=== PATIENT | female | born 1950 | race Caucasian/White ===

== ENCOUNTER 2016-05-29 15:56 | Emergency (ER) | payer MEDICARE, MEDICAID ==
[~2016-05-29] VITALS: Ht 162.6 cm; Wt 53.5 kg
[~2016-05-29 15:56] MED LIST: ACHD5005 PO; ALPR.5T PO; AMIT25TA9 PO; AMLO10TA2 PO; ATOR40TA PO; ATOR40TA70 PO; CHLO10CA6 PO; CHLR10C; CHLR10C PO; CPR500T; CPR500T PO; Chantix; DICY20TA10 PO; DICY20TA57 PO; EST1.25T; HSCO125 PO; HYDR-34 PO; LINA145C PO; LINA290C PO; LISI40TA PO; LORA10TA44 PO; LORA10TA7 PO; LOSA100T16 PO; LOSA100T28 PO; LOSA100T7 PO; LSNP10T PO; METH4TAB PO; METO50TA7 PO; MGCT300B PO; NAPR-243 PO; NORVASC PO; ONDA8TAB13 PO; OXB5T PO; OXYC-12 PO; OXYC-272 PO; OXYC-309 PO; OXYC-471 PO; OXYC1TAB17 PO; PHEN200T27 PO; POLY119P PO; PROP1TAB77; RANI150C11 PO; RANI75TA21 PO; TRAM50TA2 PO; TRM50T PO; ZLP10T PO
[2016-05-29] MEDS ORDERED: RANI150T15 PO (16:29)
[2016-05-29] MEDS ORDERED: LINA290C PO (16:29)
[2016-05-29] MEDS ORDERED: DICY20TA33 PO (16:29)
[2016-05-29] MEDS ORDERED: OXYC-197 PO (16:29)
[2016-05-29] MEDS ORDERED: LORA10CA PO (16:29)
[2016-05-29] MEDS ORDERED: RT-ALBUTEROL/IPRATROPIUM 3 ML (DUONEB) VIAL INH ONE (16:45)
[2016-05-29 17:04] LABS: BASOPHILS % (AUTO) 0 % (0-10); EOSINOPHILS % (AUTO) 0 % (0-10); LYMPHOCYTES # (AUTO) 1.2 X 10^3 (1.0-4.0); LYMPHOCYTES % (AUTO) 19 % (12-44); MEAN CORPUSCULAR HEMOGLOBIN 32 PG (25-34); MEAN CORPUSCULAR HGB CONC 33 G/DL (32-36); MEAN CORPUSCULAR VOLUME 96 FL (80-99); MEAN PLATELET VOLUME 8.4 FL (7.4-10.4); MONOCYTES # (AUTO) 0.5 X 10^3 (0.0-1.0); MONOCYTES % (AUTO) 7 % (0-12); NEUTROPHILS % (AUTO) 74 % (42-75); PLATELET COUNT 421 10^3/uL (130-400); RED BLOOD COUNT 3.94 10^6/uL (4.35-5.85); WHITE BLOOD COUNT 6.7 10^3/uL (4.3-11.0)
[2016-05-29] MEDS ORDERED: CHLO10CA6 PO (17:04)
[2016-05-29 17:23] LABS: ALBUMIN 3.8 G/DL (3.2-4.5); BILIRUBIN,TOTAL 0.2 MG/DL (0.1-1.0); CALCIUM 8.9 MG/DL (8.5-10.1); CREATININE SERUM 1.11 MG/DL (0.60-1.30); POTASSIUM 4.4 MMOL/L (3.6-5.0); TOTAL PROTEIN 7.6 G/DL (6.4-8.2)
--- NOTE | 2016-05-29 17:23 | Diagnostic Imaging Report ---
INDICATION: Shortness of breath. History of COPD. EXAMINATION: Two views of the chest were obtained. COMPARISON: 01/01/2015. FINDINGS: The lungs are well aerated with mild air trapping noted, bilaterally. No infiltrates are present. There are no masses. Heart is not enlarged. No evidence of pulmonary edema. No hilar adenopathy. No pneumothorax or pleural effusion. IMPRESSION: Mild bilateral air trapping which has increased slightly in severity when compared with 01/01/2015. Dictated by: Dictated on workstation # [id number]
[2016-05-29] MEDS ORDERED: AZIT250T5 PO (17:57)
[2016-05-29] MEDS ORDERED: PRD20T PO (17:57)
--- NOTE | 2016-05-29 17:57 | ED Cough/URI ---
General Chief Complaint: Respiratory Problems Stated Complaint: COUGH/DIFF BREATHING/WEAKNESS Nursing Triage Note: to ED 5 by wheelchair with complaints of worsening shortness of breath for the past 4-5 days. Patient reports history of COPD. Recent flu/pneumonia vaccine. Source: patient Exam Limitations: no limitations History of Present Illness Time seen by provider: 17:55 Initial Comments To ER with severe weakness and shortness of breath for the past 4-5 days. History of COPD. Severity/Quality: dry cough Prior Episodes/Possible Cause: no prior episodes Associated Symptoms: denies symptoms Allergies and Home Medications Allergies Coded Allergies: Sulfa (Sulfonamide Antibiotics) (Verified Allergy, Unknown, 05/29/16) acetaminophen (Verified Allergy, Unknown, 05/29/16) adhesive (Verified Allergy, Unknown, 05/29/16) fentanyl adhesive hydrocodone (Verified Allergy, Unknown, 05/29/16) meperidine (Verified Allergy, Unknown, HALLUCINATIONS, 05/29/16) Home Medications Chlordiazepoxide HCl 10 Mg Capsule 10 MG PO TID (Reported) Dicyclomine HCl 20 Mg Tablet 20 MG PO TID (Reported) Linaclotide 290 Mcg Capsule 290 MCG PO DAILY (Reported) Loratadine 10 Mg Capsule 10 MG PO DAILY (Reported) Oxycodone HCl/Acetaminophen 1 Each Tablet 2 EACH PO q4-6 hours PRN PRN PAIN ( Reported) Ranitidine HCl 150 Mg Tablet 150 MG PO DAILY PRN PRN INDIGESTION (Reported) Constitutional: see HPI EENTM: see HPI Respiratory: see HPI cough wheezing Cardiovascular: no symptoms reported Genitourinary: no symptoms reported Musculoskeletal: no symptoms reported Skin: no symptoms reported Psychiatric/Neurological: No Symptoms Reported Past Mrhsuda-Khcbwg-Iyeasp Hx Patient Social History Alcohol Use: Denies Use Recreational Drug Use: No Smoking Status: Current Everyday Smoker Type Used: Cigarettes Recent Foreign Travel: No Contact w/Someone Who Travel: No Recent Infectious Disease Expo: No Recent Hopitalizations: No Physical Abuse Screen: No Sexual Abuse: No Immunizations Up To Date Tetanus Booster (TDap): Less than 5yrs Date of Pneumonia Vaccine: May 23, 2016 Date of Influenza Vaccine: May 23, 2016 Surgeries HX Surgeries: Yes (ADHESIOLYSIS X3, LEFT FOOT X2, C/S X2, HYSTERECTOMY) Surgeries: Section, Hysterectomy, Orthopedic Respiratory Hx Respiratory Disorders: Yes Respiratory Disorders: COPD Cardiovascular Hx Cardiac Disorders: Yes Cardiac Disorders: Hypertension Neurological Hx Neurological Disorders: No 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 System Hx 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 Disorders: No Sexually Transmitted Disease: No HIV/AIDS: No Genitourinary Hx Genitourinary Disorders: Yes (HASNT HAD UTI IN 8 MONTHS) Genitourinary Disorders: Kidney Stones, UTI-Chronic Gastrointestinal Hx Gastrointestinal Disorders: Yes Gastrointestinal Disorders: Gastroesophageal Reflux, Irritable Bowel Musculoskeletal Hx Musculoskeletal Disorders: Yes ("KNEE AND BACK PROBLEMS") Musculoskeletal Disorders: Osteoporosis, Arthritis Endocrine Hx Endocrine Disorders: No HEENT HX ENT Disorders: Yes (DENTURES, READING GLASSES) Loss of Vision: Bilateral Cancer Hx Cancer: No Psychosocial Hx Psychiatric Problems: No (Pt states she had Bulemia years ago and lowest weight was 94 lbs ) Behavioral Health Disorders: PTSD Integumentary HX Skin/Integumentary Disorder: No Blood Transfusions Hx Blood Disorders: Yes (HX OF ANEMIA) Adverse Reaction to a Blood Tr: No (HAS FLUSHING BUT NO REACTION) Family Medical History Family Medial History: Abdominal aortic aneurysm Alzheimer's disease 19 MOTHER Cardiovascular disease 19 FATHER ( AT 46 FROM HEART ATTACK) G8 SISTER Hypercholesterolemia 19 FATHER Hypertension 19 FATHER 19 MOTHER Myocardial infarction 19 FATHER Thyroid disease 19 MOTHER G8 SISTER Physical Exam Vital Signs Vital Sign - Last 12Hours 05/29/16 16:10 Temp 98.3 Pulse 110 Resp 24 B/P 164/90 Pulse Ox 97 O2 Delivery Room Air Capillary Refill : Less Than 3 Seconds General Appearance: WD/WN cachetic no apparent distress Eyes: Bilateral Eye EOMI, Bilateral Eye Normal Inspection, Bilateral Eye PERRL HEENT: PERRL/EOMI normal ENT inspection Respiratory: no respiratory distress decreased breath sounds wheezing Gastrointestinal: normal bowel sounds non tender soft 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: alert normal mood/affect oriented x 3 Skin: normal color warm/dry Progress/Results/Core Measures Results/Orders Lab Results Laboratory Tests Test 05/29/16 16:50 Range/Units Alanine Aminotransferase (ALT/SGPT) 8 0-55 U/L Albumin 3.8 3.2-4.5 G/DL Alkaline Phosphatase 152 H 40-136 U/L Anion Gap 12 5-14 MMOL/L Aspartate Amino Transf (AST/SGOT) 13 5-34 U/L BUN/Creatinine Ratio 12 Basophils # (Auto) 0.0 0.0-0.1 10^3/uL Basophils (%) (Auto) 0 0-10 % Blood Urea Nitrogen 13 7-18 MG/DL Calcium Level 8.9 8.5-10.1 MG/DL Carbon Dioxide Level 16 L 21-32 MMOL/L Chloride Level 99 98-107 MMOL/L Creatinine 1.11 0.60-1.30 MG/DL Eosinophils # (Auto) 0.0 0.0-0.3 10^3/uL Eosinophils (%) (Auto) 0 0-10 % Estimat Glomerular Filtration Rate 49 Glucose Level 97 70-105 MG/DL Hematocrit 38 35-52 % Hemoglobin 12.6 11.5-16.0 G/DL Lactic Acid Level 1.5 0.5-2.0 MMOL/L Lymphocytes # (Auto) 1.2 1.0-4.0 X 10^3 Lymphocytes (%) (Auto) 19 12-44 % Mean Corpuscular Hemoglobin 32 25-34 PG Mean Corpuscular Hemoglobin Concent 33 32-36 G/DL Mean Corpuscular Volume 96 80-99 FL Mean Platelet Volume 8.4 7.4-10.4 FL Monocytes # (Auto) 0.5 0.0-1.0 X 10^3 Monocytes (%) (Auto) 7 0-12 % Neutrophils # (Auto) 5.0 1.8-7.8 X 10^3 Neutrophils (%) (Auto) 74 42-75 % Platelet Count 421 H 130-400 10^3/uL Potassium Level 4.4 3.6-5.0 MMOL/L Red Blood Count 3.94 L 4.35-5.85 10^6/uL Red Cell Distribution Width 15.0 H 10.0-14.5 % Sodium Level 127 L 135-145 MMOL/L Total Bilirubin 0.2 0.1-1.0 MG/DL Total Protein 7.6 6.4-8.2 G/DL White Blood Count 6.7 4.3-11.0 10^3/uL My Orders Orders-CYDNEY ANDERSON [employer] INSPECTOR Cbc With Automated Diff (05/29/16 16:40) Comprehensive Metabolic Panel (05/29/16 16:40) Ua Culture If Indicated (05/29/16 16:40) Chest Pa/Lat (2 View) (05/29/16 16:40) Saline Lock/Iv-Start (05/29/16 16:40) Blood Culture (05/29/16 16:40) Lactic Acid Analyzer (05/29/16 16:40) Albuterol/Ipra Inhalation Soln (Duoneb I (05/29/16 16:45) Svn Sm Volume Nebulizer Rt-Rfs (05/29/16 16:40) Medications Given in ED Current Medications Medications Dose Ordered Sig/Lisa Route Start Time Stop Time Status Last Admin Dose Admin Albuterol/ Ipratropium 3 ml ONCE ONCE INH 05/29/16 16:45 05/29/16 16:46 DC 05/29/16 16:56 3 ML Vital Signs/I&O Vital Sign - Last 12Hours 05/29/16 05/29/16 05/29/16 16:10 16:50 16:56 Temp 98.3 98.3 Pulse 110 110 Resp 24 24 B/P 164/90 164/90 Pulse Ox 97 97 97 O2 Delivery Room Air Room Air Blood Pressure Mean: 114 Departure Impression Impression: Primary Impression: COPD exacerbation Disposition: 01 HOME, SELF-CARE Condition: Stable Departure-Patient Inst. Decision time for Depature: 17:56 Referrals: [facility] (PCP/Family) Primary Care Physician Patient Instructions: COPD Including Emphysema (DC) Add. Discharge Instructions: 1. Medication as directed 2. Follow-up with your doctor next week 3. Return to ER for any concerns All discharge instructions reviewed with patient and/or family. Voiced understanding. Scripts Azithromycin 250 Mg [id number] Mg PO UD #6 TAB TAKE 2 TABLETS ON DAY ONE THEN TAKE 1 TABLET DAILY FOR FOUR MORE DAYS Prov:CYDNEY ANDERSON [employer] INSPECTOR 05/29/16 Prednisone 20 Mg Tab40 Mg PO DAILY #8 TAB Prov:CYDNEY ANDERSON [employer] INSPECTOR 05/29/16 CYDNEY ANDERSON [employer] INSPECTOR May 29, 2016 17:57
[2016-05-29] MEDS ORDERED: predniSONE 20 MG TAB PO ONE (18:00)
[2016-05-29] MEDS ORDERED: RX-ALBUTEROL NEB 2.5 MG/3 ML PACK #5 IH STA (18:06)
[2016-05-29 18:15] VITALS: BP 142/88
[2016-06-03] MEDS ORDERED: NITR100C10 PO (11:46)
[2016-06-03] MEDS ORDERED: PRD10T PO (11:46)
== END 2016-05-29 18:15 | disposition home or self-care (01) ==
LOC: EDUNIT# 15:56 → ER 15:59
DX: J44.1 Chronic obstructive pulmonary disease with (acute) exacerbation (principal); I10 Essential (primary) hypertension; F17.210 Nicotine dependence, cigarettes, uncomplicated
CPT/HCPCS: 36415; 71020; 80053; 83605; 85025; 87040; 94640

== ENCOUNTER 2016-06-02 01:23 | Observation (INO) | payer MEDICARE, MEDICAID ==
[~2016-06-02] VITALS: Ht 162.6 cm; Wt 52.8 kg
[~2016-06-02 01:23] MED LIST changes: +AZIT250T5 PO; +DICY20TA33 PO; +LORA10CA PO; +OXYC-197 PO; +PRD20T PO; +RANI150T15 PO
[2016-06-02 12:30] VITALS: BP 111/68
[2016-06-02] MEDS ORDERED: DOCUSATE SODIUM 100 MG (COLACE) CAP PO PRN (13:15)
[2016-06-02] MEDS ORDERED: PATIENT MAY USE OWN MEDS, ALL PO SCH (13:15)
[2016-06-02] MEDS ORDERED: CATHETER FLUSH 10 ML SYR IV PRN (13:30)
[2016-06-02] MEDS ORDERED: PRD20T PO (13:42)
[2016-06-02] MEDS ORDERED: AZIT250T5 PO (13:42)
[2016-06-02 13:44] LABS: BASOPHILS % (AUTO) 0 % (0-10); EOSINOPHILS % (AUTO) 0 % (0-10); LYMPHOCYTES # (AUTO) 1.4 X 10^3 (1.0-4.0); LYMPHOCYTES % (AUTO) 10 % (12-44); MEAN CORPUSCULAR HEMOGLOBIN 32 PG (25-34); MEAN CORPUSCULAR HGB CONC 33 G/DL (32-36); MEAN CORPUSCULAR VOLUME 95 FL (80-99); MEAN PLATELET VOLUME 8.2 FL (7.4-10.4); MONOCYTES # (AUTO) 0.4 X 10^3 (0.0-1.0); MONOCYTES % (AUTO) 3 % (0-12); NEUTROPHILS # (AUTO) 11.6 X 10^3 (1.8-7.8); NEUTROPHILS % (AUTO) 87 % (42-75); PLATELET COUNT 470 10^3/uL (130-400); RED BLOOD COUNT 4.39 10^6/uL (4.35-5.85); RED CELL DISTRIBUTION WIDTH 14.9 % (10.0-14.5); WHITE BLOOD COUNT 13.3 10^3/uL (4.3-11.0)
[2016-06-02] MEDS ORDERED: TRAZ-28 PO (13:48)
[2016-06-02] MEDS ORDERED: OXYC-465 PO (13:48)
[2016-06-02] MEDS ORDERED: OXYC-202 PO (13:48)
[2016-06-02] MEDS ORDERED: CHLO10CA6 PO (13:48)
[2016-06-02] MEDS ORDERED: MELA1TAB10 PO (13:49)
[2016-06-02 14:00] LABS: ALBUMIN 3.7 G/DL (3.2-4.5); BILIRUBIN,TOTAL 0.3 MG/DL (0.1-1.0); CALCIUM 9.6 MG/DL (8.5-10.1); CREATININE SERUM 1.18 MG/DL (0.60-1.30); POTASSIUM 4.7 MMOL/L (3.6-5.0); TOTAL PROTEIN 7.5 G/DL (6.4-8.2)
[2016-06-02] MEDS ORDERED: METHYLPREDNISOLONE 1000 MG IVP SCH (14:00)
[2016-06-02 14:04] LABS: ANISOCYTOSIS SLIGHT; BAND NEUTROPHILS 0 %; BASOPHILS % (MANUAL) 0 %; EOSINOPHILS % (MANUAL) 0 %; LYMPHOCYTES % (MANUAL) 8 %; NEUTROPHILS % (MANUAL) 90 %
[2016-06-02] MEDS: CATHETER FLUSH 10 ML SYR IV SCH ×2 (14:46→21:10)
[2016-06-02] MEDS: methylPREDNISolone 40 MG/ML (Solu-MEDROL) VIAL IV SCH ×2 (14:46→21:09)
[2016-06-02] MEDS ORDERED: RT-ALBUTEROL/IPRATROPIUM 3 ML (DUONEB) VIAL INH PRN (15:00)
[2016-06-02] MEDS ORDERED: NON-FORMULARY MEDICATION 1 EA EA (Linaclotide (Linzess) 290 MCG) PO PRN (15:30)
[2016-06-02] MEDS ORDERED: FAMOTIDINE 20 MG (PEPCID) TABLET PO PRN (15:30)
[2016-06-02] MEDS ORDERED: MELATONIN 3 MG TABLET PO PRN (15:30)
[2016-06-02] MEDS ORDERED: raNItidine (ZANTAC) 150 MG TAB NON-FORMULARY PO PRN (15:30)
[2016-06-02] MEDS ORDERED: NON-FORMULARY MEDICATION 1 EA EA (Melatonin/Pyridoxine (Melatonin 3 mg Tablet) 3 MG) PO PRN (15:30)
[2016-06-02] MEDS ORDERED: oxyCODONE/APAP 10/325MG (PERCOCET 10) TABLET PO ONE (16:04)
[2016-06-02] MEDS: oxyCODONE/APAP 10/325MG (PERCOCET 10) TABLET PO SCH (16:12)
[2016-06-02] MEDS: NS IV 1000 ML 1,000 ML IV SCH ×2 (16:13→23:30)
[2016-06-02 16:16] VITALS: BP 120/78
--- NOTE | 2016-06-02 16:29 | Diagnostic Imaging Report ---
EXAMINATION: PA and lateral views of the chest. INDICATION: Shortness of breath. FINDINGS: The lungs are clear. The heart size is normal. There is no effusion or pneumothorax. The mediastinum and bebeto are unremarkable. IMPRESSION: Unremarkable exam. Dictated by: Dictated on workstation # [id number]
[2016-06-02 17:40] LABS: BILIRUBIN,URINE NEGATIVE (NEGATIVE); KETONES,URINE NEGATIVE (NEGATIVE); LEUKOCYTE ESTERASE ,URINE 2+ (NEGATIVE); NITRITE,URINE NEGATIVE (NEGATIVE); PH,URINE 6.5 (5-9); PROTEIN,URINE 1+ (NEGATIVE); UROBILINOGEN,URINE NORMAL (NORMAL)
[2016-06-02 17:42] LABS: WBC,URINE 50-100 /HPF
[2016-06-02] MEDS: RT-ALBUTEROL/IPRATROPIUM 3 ML (DUONEB) VIAL INH SCH (18:46)
[2016-06-02 20:00] VITALS: BP 107/61
[2016-06-02] MEDS ORDERED: chlordiazePOXIDE 10 MG (LIBRIUM) NON-FORMULARY PO SCH (21:00)
[2016-06-02] MEDS ORDERED: traZODone 50 MG (DESYREL) TAB PO SCH (21:00)
[2016-06-02] MEDS ORDERED: oxyCODONE/APAP 10/325MG (PERCOCET 10) TABLET PO SCH (21:00)
[2016-06-03] VITALS: BP 104/54
[2016-06-03] MEDS: NS IV 1000 ML 1,000 ML IV SCH ×2 (01:42→10:20)
[2016-06-03 04:00] VITALS: BP 134/68
[2016-06-03] MEDS: methylPREDNISolone 40 MG/ML (Solu-MEDROL) VIAL IV SCH (05:59)
[2016-06-03] MEDS: CATHETER FLUSH 10 ML SYR IV SCH (05:59)
[2016-06-03] MEDS: RT-ALBUTEROL/IPRATROPIUM 3 ML (DUONEB) VIAL INH SCH ×2 (07:38→10:46)
[2016-06-03 07:44] VITALS: BP 138/75
[2016-06-03] MEDS ORDERED: chlordiazePOXIDE 10 MG (LIBRIUM) NON-FORMULARY PO SCH (08:00)
[2016-06-03] MEDS: oxyCODONE/APAP 10/325MG (PERCOCET 10) TABLET PO SCH (08:18)
[2016-06-03] MEDS ORDERED: LORATADINE (CLARITIN) 10 MG TAB PO SCH (09:00)
[2016-06-03] MEDS ORDERED: NON-FORMULARY MEDICATION 1 EA EA (Loratadine (Claritin) 10 MG) PO SCH (09:00)
[2016-06-03] MEDS ORDERED: AZITHROMYCIN 250 MG TAB (ZITHROMAX) PO SCH (09:00)
[2016-06-03 10:10] LABS: BASOPHILS % (AUTO) 0 % (0-10); EOSINOPHILS % (AUTO) 0 % (0-10); LYMPHOCYTES # (AUTO) 0.8 X 10^3 (1.0-4.0); LYMPHOCYTES % (AUTO) 10 % (12-44); MEAN CORPUSCULAR HEMOGLOBIN 32 PG (25-34); MEAN CORPUSCULAR HGB CONC 33 G/DL (32-36); MEAN CORPUSCULAR VOLUME 96 FL (80-99); MEAN PLATELET VOLUME 8.4 FL (7.4-10.4); MONOCYTES # (AUTO) 0.1 X 10^3 (0.0-1.0); MONOCYTES % (AUTO) 2 % (0-12); NEUTROPHILS # (AUTO) 7.6 X 10^3 (1.8-7.8); NEUTROPHILS % (AUTO) 89 % (42-75); PLATELET COUNT 398 10^3/uL (130-400); RED BLOOD COUNT 3.43 10^6/uL (4.35-5.85); RED CELL DISTRIBUTION WIDTH 14.5 % (10.0-14.5); WHITE BLOOD COUNT 8.5 10^3/uL (4.3-11.0)
[2016-06-03 10:28] LABS: CALCIUM 8.2 MG/DL (8.5-10.1); CREATININE SERUM 0.98 MG/DL (0.60-1.30); POTASSIUM 4.3 MMOL/L (3.6-5.0)
--- NOTE | 2016-06-03 10:31 | Diagnostic Imaging Report ---
PROCEDURE: CT chest without contrast. TECHNIQUE: Multiple contiguous axial images were obtained through the chest without the use of intravenous contrast. INDICATION: Shortness of breath. Weight loss. FINDINGS: There are upper lobe predominant emphysematous changes seen. There is a mild area of consolidation with the appearance in favor of atelectasis in the dependent area of the left lower lobe and the lung base. There is no pleural or pericardial effusion. The heart size is normal. Coronal artery calcifications are seen. The thoracic aorta is normal in caliber. No mediastinal mass and no lymphadenopathy of significance in the mediastinum or bebeto noted. Sections in the upper abdomen appear grossly unremarkable. The osseous structures appear grossly unremarkable. IMPRESSION: 1. Mild subsegmental consolidation in the left lung base dependent area is favored to be atelectasis rather than mild pneumonitis. Correlate clinically. 2. Emphysema. Dictated by: Dictated on workstation # [id number]
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
[2016-06-03] MEDS ORDERED: PRD10T PO (11:46)
[2016-06-03] MEDS ORDERED: NITR100C10 PO (11:46)
--- NOTE | 2016-06-03 11:52 | Discharge Instructions ---
Discharge [facility] Discharge Medications New, Converted or Re-Newed RX: Transmitted to Pharmacy New Medications: Prednisone (Prednisone) 10 Mg Tab 0 PO UD Take 6 tabs (60mg) daily, decrease by 1 tab (10mg) daily. #21 Ref 0 TAB Nitrofurantoin Monohyd/M-Cryst (Nitrofurantoin Hendry-Mcr 100 mg) 100 Mg Capsule 100 MG PO BID #14 Ref 0 CAP Continued Medications: Chlordiazepoxide HCl (Chlordiazepoxide HCl) 10 Mg Capsule 10 MG PO 0800,1200 CAP Chlordiazepoxide HCl (Chlordiazepoxide HCl) 10 Mg Capsule 20 MG PO HS TAKES 2 (10MG) CAPSULES CAP Linaclotide (Linzess) 290 Mcg Capsule 290 MCG PO DAILY PRN CONSTIPATION CAP Loratadine (Claritin) 10 Mg Capsule 10 MG PO DAILY CAP Melatonin/Pyridoxine (Melatonin 3 mg Tablet) 1 Each Tablet 3 MG PO HS PRN SLEEP TAB Oxycodone HCl/Acetaminophen (Oxycodone-Acetaminophen 10-325) 1 Each Tablet 1 TAB PO 0800,1400 TAB Oxycodone HCl/Acetaminophen (Percocet 10-325 mg Tablet) 1 Each Tablet 2 TAB PO HS TAB Ranitidine HCl (Zantac) 150 Mg Tablet 150-300 MG PO BID PRN INDIGESTION TAB Trazodone HCl (Trazodone HCl) 50 Mg Tablet 100 MG PO HS TAKES 2 (50MG) TABLETS TAB Discontinued Medications: Azithromycin (Azithromycin) 250 Mg Tablet 250 MG PO UD FILLED 5 DAY SUPPLY 05-30-16 TAKE 2 TABLETS ON DAY ONE THEN TAKE 1 TABLET DAILY FOR FOUR MORE DAYS #6 TAB Prednisone (Prednisone) 20 Mg Tab 40 MG PO DAILY 4 DAY SUPPLY FILLED 05-30-16 TAKES 2 (20MG) TABLETS Days 4 TAB Patient Instructions Goal/Follow Up Appt: Follow up with Jill Laureano on 06/09/16 at 11 am. Patient Instructions: 1. Stop taking more than 2 tabs of ranitidine per day. 2. Take macrobid for urinary tract infection. 3. Take prednisone for breathing problems. 4. Talk to Jill Laureano about getting lung function testing done to check for COPD/emphysema. 5. Talk to Jill Laureano about getting a referral to have an EGD done due to your weight loss and severe acid reflux. Return to [facility] For: Fever, worsening shortness of breath, inability to keep down food Activity & Diet Discharge Diet: Regular Diet Activity as Tolerated: Yes RAISSA FUENTES MD Jun 03, 2016 11:52 am
[2016-06-03 12:00] VITALS: BP 130/69
[2016-06-03] MEDS ORDERED: NITROFURANTOIN 100 MG (MACROBID) CAPSULE PO SCH (21:00)
== END 2016-06-03 11:46 | disposition home or self-care (01) ==
LOC: PREINTOOBSV → ICU 01:23 → UNDOADMIN 12:30 → UNDODISIN 06-03 12:15
PROVIDERS: ADMIT Family Medicine; ATTEND Family Medicine
DX: R09.02 Hypoxemia (principal); E87.1 Hypo-osmolality and hyponatremia; D72.829 Elevated white blood cell count, unspecified; R63.4 Abnormal weight loss; N39.0 Urinary tract infection, site not specified; I49.9 Cardiac arrhythmia, unspecified; F17.210 Nicotine dependence, cigarettes, uncomplicated; F43.10 Post-traumatic stress disorder, unspecified; G43.909 Migraine, unspecified, not intractable, without status migrainosus; M54.5 Low back pain; I10 Essential (primary) hypertension; K29.70 Gastritis, unspecified, without bleeding; M19.90 Unspecified osteoarthritis, unspecified site; K58.9 Irritable bowel syndrome, unspecified; Z96.651 Presence of right artificial knee joint
CPT/HCPCS: 36415; 71020; 71250; 80048; 80053; 81000; 82436; 83935; 84300; 85007; 85025; 85027; 87077; 87088; 87186; 93005; 94640; 99211; G0378

== ENCOUNTER → 2016-06-23 | Outpatient (CLI) | payer MEDICARE, MEDICAID ==
[~2016-06-23] MED LIST changes: +CEFD300C3 PO; +CIPR-225 PO; +HYOS0.1281 PO; +LACT1CAP8 PO; +LEVO750T9 PO; +MELA1TAB10 PO; +METH500T PO; +NITR100C10 PO; +ONDA8TAB9 PO; +OXYC-202 PO; +OXYC-465 PO; +PHEN-639 PO; +PHEN-640 PO; +PRD10T PO; +TRAZ-28 PO
== END ==
LOC: PREOP 05:59
PROVIDERS: ATTEND Surgery
DX: Z01.818 Encounter for other preprocedural examination (principal); K21.9 Gastro-esophageal reflux disease without esophagitis; R63.4 Abnormal weight loss

== ENCOUNTER 2016-06-25 13:22 | Emergency (ER) | payer MEDICARE, MEDICAID ==
[~2016-06-25] VITALS: Ht 162.6 cm; Wt 50.8 kg
[~2016-06-25 13:22] MED LIST changes: -CEFD300C3 PO; -CIPR-225 PO; -HYOS0.1281 PO; -LACT1CAP8 PO; -LEVO750T9 PO; -METH500T PO; -ONDA8TAB9 PO; -PHEN-639 PO; -PHEN-640 PO
[2016-06-25] MEDS ORDERED: PHENAZOPYRIDINE 100 MG (PYRIDIUM) TABLET PO STA (13:55)
--- NOTE | 2016-06-25 13:59 | ED GU-Female ---
General Chief Complaint: -Female Stated Complaint: UTI SYMPTOMS History of Present Illness Time seen by provider: 13:45 Initial Comments Initial evaluation for urinary pain frequency and burning, symptoms began . Denies back pain. Was treated approximately 4-6 weeks ago with Macrobid for the UTI. She reports recurrent UTIs approximately 2-3 per year. Timing/Duration: getting worse Severity/Quality: moderate Location: suprapubic Radiation: none Activities at Onset: none Prior Genitourinary Problems: similar symptoms Sexual [place] History: single partner Modifying Factors: Improves With Resting, Improves With Urinating Associated Symptoms: denies symptoms Allergies and Home Medications Allergies Coded Allergies: Sulfa (Sulfonamide Antibiotics) (Verified Allergy, Unknown, 05/29/16) acetaminophen (Verified Allergy, Unknown, 05/29/16) adhesive (Verified Allergy, Unknown, 05/29/16) fentanyl adhesive hydrocodone (Verified Allergy, Unknown, 05/29/16) meperidine (Verified Allergy, Unknown, HALLUCINATIONS, 05/29/16) Home Medications Chlordiazepoxide HCl 10 Mg Capsule 10 MG PO 0800,1200 (Reported) Chlordiazepoxide HCl 10 Mg Capsule 20 MG PO HS (Reported) TAKES 2 (10MG) CAPSULES Ciprofloxacin HCl 500 Mg Tablet #10 500 MG PO BID Prescribed by: ANDREW KANG on 06/25/16 1429 Linaclotide 290 Mcg Capsule 290 MCG PO DAILY PRN PRN CONSTIPATION (Reported) Loratadine 10 Mg Capsule 10 MG PO DAILY (Reported) Melatonin/Pyridoxine 1 Each Tablet 3 MG PO HS PRN PRN SLEEP (Reported) Nitrofurantoin Monohyd/M-Cryst 100 Mg Capsule #14 100 MG PO BID Prescribed by: RAISSA KING on 06/03/16 1146 Oxycodone HCl/Acetaminophen 1 Each Tablet 1 TAB PO 0800,1400 (Reported) Oxycodone HCl/Acetaminophen 1 Each Tablet 2 TAB PO HS (Reported) Phenazopyridine HCl 100 Mg Tablet #6 100 MG PO Q8H Prescribed by: ANDREW KANG on 06/25/16 1430 Prednisone 10 Mg Tab #21 0 PO UD Take 6 tabs (60mg) daily, decrease by 1 tab (10mg) daily. Prescribed by: RAISSA KING on 06/03/16 1146 Ranitidine HCl 150 Mg Tablet 150-300 MG PO BID PRN PRN INDIGESTION (Reported) Trazodone HCl 50 Mg Tablet 100 MG PO HS (Reported) TAKES 2 (50MG) TABLETS Constitutional: no symptoms reported see HPI EENTM: no symptoms reported see HPI Respiratory: no symptoms reported see HPI Cardiovascular: no symptoms reported see HPI Gastrointestinal: no symptoms reported see HPI Genitourinary: see HPI burningdenies discharge, dysuria frequencydenies flank pain, denies hematuria, denies incontinence, pain urgency Musculoskeletal: no symptoms reported see HPI Skin: no symptoms reported see HPI Psychiatric/Neurological: No Symptoms Reported See HPI Endocrine: No Symptoms Reported See HPI Hematologic/Lymphatic: No Symptoms Reported See HPI All Other Systemes Reviewed Negative Unless Noted: Yes Past Lthlqso-Tsaxqe-Tfhtqq Hx Patient Social History Type Used: Cigarettes Recent Foreign Travel: No Contact w/Someone Who Travel: No Recent Hopitalizations: No Immunizations Up To Date Tetanus Booster (TDap): Less than 5yrs Date of Pneumonia Vaccine: May 23, 2016 Date of Influenza Vaccine: May 23, 2016 Seasonal Allergies Seasonal Allergies: No Surgeries HX Surgeries: Yes (ADHESIOLYSIS X3, LEFT FOOT X2, C/S X2, HYSTERECTOMY) Surgeries: Section, Hysterectomy, Orthopedic Respiratory Hx Respiratory Disorders: Yes Respiratory Disorders: COPD Cardiovascular Hx Cardiac Disorders: Yes Cardiac Disorders: Hypertension Neurological Hx Neurological Disorders: No 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 System Hx 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 Disorders: No Sexually Transmitted Disease: No HIV/AIDS: No Genitourinary Hx Genitourinary Disorders: Yes (HASNT HAD UTI IN 8 MONTHS) Genitourinary Disorders: Kidney Stones, UTI-Chronic Gastrointestinal Hx Gastrointestinal Disorders: Yes Gastrointestinal Disorders: Gastroesophageal Reflux, Irritable Bowel Musculoskeletal Hx Musculoskeletal Disorders: Yes ("KNEE AND BACK PROBLEMS") Musculoskeletal Disorders: Osteoporosis, Arthritis Endocrine Hx Endocrine Disorders: No HEENT HX ENT Disorders: Yes (DENTURES, READING GLASSES) Loss of Vision: Bilateral Cancer Hx Cancer: No Psychosocial Hx Psychiatric Problems: No (Pt states she had Bulemia years ago and lowest weight was 94 lbs ) Behavioral Health Disorders: PTSD Integumentary HX Skin/Integumentary Disorder: No Blood Transfusions Hx Blood Disorders: Yes (HX OF ANEMIA) Adverse Reaction to a Blood Tr: No (HAS FLUSHING BUT NO REACTION) Reviewed Nursing Assessment Reviewed/Agree w Nursing PMH: Yes Family Medical History Significant Family History: Heart Disease Family Medial History: Abdominal aortic aneurysm Alzheimer's disease 19 MOTHER Cardiovascular disease 19 FATHER ( AT 46 FROM HEART ATTACK) G8 SISTER Hypercholesterolemia 19 FATHER Hypertension 19 FATHER 19 MOTHER Myocardial infarction 19 FATHER Thyroid disease 19 MOTHER G8 SISTER Physical Exam Vital Signs Vital Sign - Last 12Hours 06/25/16 13:40 Temp 98.2 Pulse 96 Resp 18 B/P 164/92 Pulse Ox 96 O2 Delivery Room Air Capillary Refill : General Appearance: WD/WN no apparent distress HEENT: PERRL/EOMI normal ENT inspection Neck: non-tender full range of motion supple normal inspection Cardiovascular: normal peripheral pulses regular rate, rhythm no edema no murmur Respiratory: chest non-tender lungs clear no respiratory distress Gastrointestinal: normal bowel sounds non tender soft no pulsatile mass Back: normal inspection no CVA tenderness no vertebral tenderness Extremities: normal range of motion non-tender normal inspection 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: no motor/sensory deficits alert normal mood/affect oriented x 3 Skin: normal color warm/dry Lymphatic: no adenopathy Progress/Results/Core Measures Results/Orders Lab Results My Orders Vital Signs/I&O Progress Note : Time: 13:45 Progress Note Initial evaluation completed, UA obtained. Pyridium 100 mg po. Reviewed UA results with the patient recommended starting treatment with Cipro. Discharge planning discussed with patient she verbalized understanding and compliance. Departure Impression Impression: Primary Impression: UTI (urinary tract infection) Qualified Code: N30.01 - Acute cystitis with hematuria Disposition: HOME, SELF-CARE Condition: Stable Departure-Patient Inst. Decision time for Depature: 14:00 Referrals: RAISSA KING MD (PCP/Family) Primary Care Physician Patient Instructions: Urinary Tract Infection, Adult (DC) Add. Discharge Instructions: All discharge instructions reviewed with patient and/or family. Voiced understanding. Take all of antibiotic, follow up with Dr. King 3-4 days after finishing antibiotic for UA. Increase fluid intake. Deep bladder frequently. Eat blueberries or cranberries daily. Return to emergency department for increase or change in symptoms, fever, acute low back pain, or any other concerns. Scripts Phenazopyridine HCl (Pyridium)100 Mg [id number] Mg PO Q8H Pain #6 TAB Ref 0 Prov:ANDREW KANG 06/25/16 Ciprofloxacin HCl (Cipro)500 Mg [id number] Mg PO BID #10 TAB Ref 0 Prov:ANDREW KANG 06/25/16 Copy Copies To 1: RAISSA KING MD, AMY ARNP Jun 25, 2016 13:59 Urine Urobilinogen 8 H NORMAL MG/DL Urine WBC >100 H /HPF Urine pH 6.5 5-9 My Orders Orders-ANDREW KANG Ua Culture If Indicated (06/25/16 13:45) Phenazopyridine Tablet (Pyridium Tablet) (06/25/16 13:55) Urine Culture (06/25/16 13:40) Ciprofloxacin Tablet (Cipro Tablet) (06/25/16 14:30) Vital Signs/I&O Vital Sign - Last 12Hours 06/25/16 06/25/16 13:40 14:34 Temp 98.2 98.2 Pulse 96 90 Resp 18 18 B/P 164/92 Pulse Ox 96 98 O2 Delivery Room Air Progress Note : Time: 13:45 Progress Note Initial evaluation completed, UA obtained. Pyridium 100 mg po. Reviewed UA results with the patient recommended starting treatment with Cipro. Discharge planning discussed with patient she verbalized understanding and compliance. Departure Impression Impression: Primary Impression: UTI (urinary tract infection) Qualified Code: N30.01 - Acute cystitis with hematuria Disposition: HOME, SELF-CARE Condition: Stable Departure-Patient Inst. Decision time for Depature: 14:00 Referrals: RAISSA KING MD (PCP/Family) Primary Care Physician Patient Instructions: Urinary Tract Infection, Adult (DC) Add. Discharge Instructions: All discharge instructions reviewed with patient and/or family. Voiced understanding. Take all of antibiotic, follow up with Dr. King 3-4 days after finishing antibiotic for UA. Increase fluid intake. Deep bladder frequently. Eat blueberries or cranberries daily. Return to emergency department for increase or change in symptoms, fever, acute low back pain, or any other concerns. Scripts Phenazopyridine HCl (Pyridium)100 Mg [id number] Mg PO Q8H Pain #6 TAB Ref 0 Prov:ANDREW KANG 06/25/16 Ciprofloxacin HCl (Cipro)500 Mg [id number] Mg PO BID #10 TAB Ref 0 Prov:ANDREW KANG 06/25/16 Copy Copies To 1: RAISAS KING MD, AMY ARNP Jun 25, 2016 13:59
[2016-06-25 14:03] LABS: KETONES,URINE NEGATIVE (NEGATIVE); LEUKOCYTE ESTERASE ,URINE 2+ (NEGATIVE); NITRITE,URINE POSITIVE (NEGATIVE); PH,URINE 6.5 (5-9); PROTEIN,URINE 2+ (NEGATIVE); UROBILINOGEN,URINE 8 MG/DL (NORMAL)
[2016-06-25 14:19] LABS: BILIRUBIN,URINE 3+ (NEGATIVE); SQUAMOUS EPITHELIAL CELL,UR RARE /HPF; WBC,URINE >100 /HPF
[2016-06-25] MEDS ORDERED: CIPR-225 PO (14:29)
[2016-06-25] MEDS ORDERED: CIPROFLOXACIN 500 MG (CIPRO) TABLET PO SCH (14:30)
[2016-06-25] MEDS ORDERED: PHEN-639 PO (14:30)
[2016-06-25 14:34] VITALS: BP 152/90
== END 2016-06-25 14:34 | disposition home or self-care (01) ==
LOC: EDUNIT# 13:22 → ER 13:23
DX: N39.0 Urinary tract infection, site not specified (principal); I10 Essential (primary) hypertension; J44.9 Chronic obstructive pulmonary disease, unspecified
CPT/HCPCS: 81000; 87077; 87088; 87186; 99282

== ENCOUNTER 2016-07-08 15:52 | Emergency (ER) | payer MEDICARE, MEDICAID ==
[~2016-07-08] VITALS: Ht 162.6 cm; Wt 50.8 kg
[~2016-07-08 15:52] MED LIST changes: +CIPR-225 PO; +PHEN-639 PO
[2016-07-08 16:44] LABS: BILIRUBIN,URINE NEGATIVE (NEGATIVE); KETONES,URINE NEGATIVE (NEGATIVE); LEUKOCYTE ESTERASE ,URINE 2+ (NEGATIVE); NITRITE,URINE POSITIVE (NEGATIVE); PH,URINE 6 (5-9); PROTEIN,URINE NEGATIVE (NEGATIVE); UROBILINOGEN,URINE NORMAL (NORMAL)
[2016-07-08 16:54] LABS: WBC,URINE 25-50 /HPF
[2016-07-08] MEDS ORDERED: CIPR-225 PO ×2 (17:25→17:39)
[2016-07-08] MEDS ORDERED: PHEN-640 PO ×2 (17:25→17:39)
[2016-07-08] MEDS ORDERED: CEFD300C3 PO ×2 (17:25→17:39)
--- NOTE | 2016-07-08 17:25 | ED GU-Female ---
General Chief Complaint: -Female Stated Complaint: UTI SX Nursing Triage Note: c/o recurrent urinary symptoms. Pt was treated for a UTI early this month but symptoms have returned. Nursing Sepsis Screen: No Definite Risk Source: patient Exam Limitations: no limitations History of Present Illness Time seen by provider: 16:34 Initial Comments This 65-year-old woman presents to the emergency room with complaints of post void cramping and pain along with dysuria. She was treated for urinary tract infection about 2 weeks ago with Cipro. Her urine culture was reviewed and demonstrated good sensitivity to Cipro. She was on a short course of 5 days or less of the antibiotic. She is afebrile and vital signs are stable. She had some chills at home without fever. Pain radiates to her back. Allergies and Home Medications Allergies Coded Allergies: Sulfa (Sulfonamide Antibiotics) (Verified Allergy, Unknown, 05/29/16) acetaminophen (Verified Allergy, Unknown, 05/29/16) adhesive (Verified Allergy, Unknown, 05/29/16) fentanyl adhesive hydrocodone (Verified Allergy, Unknown, 05/29/16) meperidine (Verified Allergy, Unknown, HALLUCINATIONS, 05/29/16) Home Medications Cefdinir 300 Mg Capsule #20 300 MG PO BID Prescribed by: BINU LAMBERT on 07/08/16 1739 Chlordiazepoxide HCl 10 Mg Capsule 10 MG PO 0800,1200 (Reported) Chlordiazepoxide HCl 10 Mg Capsule 20 MG PO HS (Reported) TAKES 2 (10MG) CAPSULES Ciprofloxacin HCl 500 Mg Tablet #10 500 MG PO BID Prescribed by: ANDREW KANG on 06/25/16 1429 Ciprofloxacin HCl 500 Mg Tablet #20 500 MG PO BID Prescribed by: BINU LAMBERT on 07/08/16 1739 Linaclotide 290 Mcg Capsule 290 MCG PO DAILY PRN PRN CONSTIPATION (Reported) Loratadine 10 Mg Capsule 10 MG PO DAILY (Reported) Melatonin/Pyridoxine 1 Each Tablet 3 MG PO HS PRN PRN SLEEP (Reported) Nitrofurantoin Monohyd/M-Cryst 100 Mg Capsule #14 100 MG PO BID Prescribed by: RAISSA FUENTES on 06/03/16 1146 Oxycodone HCl/Acetaminophen 1 Each Tablet 1 TAB PO 0800,1400 (Reported) Oxycodone HCl/Acetaminophen 1 Each Tablet 2 TAB PO HS (Reported) Phenazopyridine HCl 100 Mg Tablet #6 100 MG PO Q8H Prescribed by: ANDREW KANG on 06/25/16 1430 Phenazopyridine HCl 200 Mg Tablet #10 1 TAB PO TID PRN PRN PAIN Prescribed by: BINU LAMBERT on 07/08/16 1739 Prednisone 10 Mg Tab #21 0 PO UD Take 6 tabs (60mg) daily, decrease by 1 tab (10mg) daily. Prescribed by: RAISSA FUENTES on 06/03/16 1146 Ranitidine HCl 150 Mg Tablet 150-300 MG PO BID PRN PRN INDIGESTION (Reported) Trazodone HCl 50 Mg Tablet 100 MG PO HS (Reported) TAKES 2 (50MG) TABLETS Constitutional: see HPI EENTM: no symptoms reported Respiratory: no symptoms reported Cardiovascular: no symptoms reported Gastrointestinal: no symptoms reported Genitourinary: see HPI : No Musculoskeletal: no symptoms reported Skin: no symptoms reported Psychiatric/Neurological: No Symptoms Reported Endocrine: No Symptoms Reported Hematologic/Lymphatic: No Symptoms Reported Past Nhmqwtq-Mfbhxg-Prgbnl Hx Patient Social History Type Used: Cigarettes 2nd Hand Smoke Exposure: No Recent Foreign Travel: No Contact w/Someone Who Travel: No Recent Infectious Disease Expo: No Recent Hopitalizations: Yes (Emphysema, UTI admit 05/2016) Immunizations Up To Date Tetanus Booster (TDap): Less than 5yrs Date of Pneumonia Vaccine: May 23, 2016 Date of Influenza Vaccine: May 23, 2016 Seasonal Allergies Seasonal Allergies: No Surgeries HX Surgeries: Yes (ADHESIOLYSIS X3, LEFT FOOT X2, C/S X2, HYSTERECTOMY) Surgeries: Section, Hysterectomy, Orthopedic Respiratory Hx Respiratory Disorders: Yes Respiratory Disorders: COPD Cardiovascular Hx Cardiac Disorders: No Cardiac Disorders: Hypertension Neurological Hx Neurological Disorders: No 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 System Hx 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 Disorders: No Sexually Transmitted Disease: No HIV/AIDS: No Genitourinary Hx Genitourinary Disorders: Yes Genitourinary Disorders: Kidney Stones, UTI-Chronic Gastrointestinal Hx Gastrointestinal Disorders: Yes Gastrointestinal Disorders: Gastroesophageal Reflux, Irritable Bowel Musculoskeletal Hx Musculoskeletal Disorders: Yes ("KNEE AND BACK PROBLEMS") Musculoskeletal Disorders: Osteoporosis, Arthritis Endocrine Hx Endocrine Disorders: No HEENT HX ENT Disorders: Yes (DENTURES, READING GLASSES) Loss of Vision: Bilateral Cancer Hx Cancer: No Psychosocial Hx Psychiatric Problems: No (Pt states she had Bulemia years ago and lowest weight was 94 lbs ) Behavioral Health Disorders: PTSD Integumentary HX Skin/Integumentary Disorder: No Blood Transfusions Hx Blood Disorders: Yes (HX OF ANEMIA) Adverse Reaction to a Blood Tr: No (HAS FLUSHING BUT NO REACTION) Family Medical History Significant Family History: Heart Disease Family Medial History: Abdominal aortic aneurysm Alzheimer's disease 19 MOTHER Cardiovascular disease 19 FATHER ( AT 46 FROM HEART ATTACK) G8 SISTER Hypercholesterolemia 19 FATHER Hypertension 19 FATHER 19 MOTHER Myocardial infarction 19 FATHER Thyroid disease 19 MOTHER G8 SISTER Physical Exam Vital Signs Vital Sign - Last 12Hours 07/08/16 16:30 Temp 97.5 Pulse 70 Resp 16 B/P 122/66 Pulse Ox 98 Capillary Refill : Less Than 3 Seconds General Appearance: WD/WN mild distress HEENT: PERRL/EOMI normal ENT inspection pharynx normal Neck: normal inspection Cardiovascular: regular rate, rhythm no edema no murmur Respiratory: lungs clear normal breath sounds no respiratory distress no accessory muscle use Gastrointestinal: normal bowel sounds soft tenderness (suprapubic) Extremities: normal inspection no pedal edema 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: editor greeting card II-XII nml as tested no motor/sensory deficits alert normal mood/affect oriented x 3 Skin: normal color warm/dry Progress/Results/Core Measures Results/Orders Lab Results Laboratory Tests Test 07/08/16 16:35 Range/Units Urine Bacteria LARGE H /HPF Urine Bilirubin NEGATIVE NEGATIVE Urine Casts NONE /LPF Urine Clarity CLEAR Urine Color YELLOW Urine Crystals NONE /LPF Urine Culture Indicated YES Urine Glucose (UA) NEGATIVE NEGATIVE Urine Ketones NEGATIVE NEGATIVE Urine Leukocyte Esterase 2+ H NEGATIVE Urine Mucus NEGATIVE /LPF Urine Nitrite POSITIVE H NEGATIVE Urine Protein NEGATIVE NEGATIVE Urine RBC 0-2 /HPF Urine RBC (Auto) 2+ H NEGATIVE Urine Specific [place] 1.010 L 1.016-1.022 Urine Urobilinogen NORMAL NORMAL MG/DL Urine WBC 25-50 H /HPF Urine pH 6 5-9 Micro Results Microbiology 07/08/16 Urine Culture - Final, Complete Klebsiella Pneumoniae My Orders Orders-BINU JAVIER MD Ua Culture If Indicated (07/08/16 16:34) Urine Culture (07/08/16 16:35) Ciprofloxacin Tablet (Cipro Tablet) (07/08/16 17:30) Cefdinir Capsule (Omnicef Capsule) (07/08/16 17:30) Hyoscyamine Sl Tablet (Levsin Sl Tablet) (07/08/16 17:30) Phenazopyridine Tablet (Pyridium Tablet) (07/08/16 17:30) Vital Signs/I&O Blood Pressure Mean: 84 Progress Note : Progress Note Patient was found to have recurrence of her urinary tract infection. She was given Pyridium and Levsin for symptom management. The first doses of Cipro and Omnicef were given in the ER. Omnicef was added for additional coverage since she had refractory infection after treatment with Cipro. A longer duration of therapy was prescribed this time. Departure Impression Impression: Primary Impression: Urinary tract infection Qualified Code: N39.0 - Urinary tract infection, site not specified Additional Impression: Bladder spasm Disposition: HOME, SELF-CARE Condition: Improved Departure-Patient Inst. Decision time for Depature: 17:00 Referrals: RAISSA FUENTES MD (PCP/Family) Primary Care Physician Patient Instructions: Urinary Tract Infection, Adult (DC) Add. Discharge Instructions: Drink plenty of clear liquids. Take Pyridium for bladder-related pain. Complete your antibiotics as prescribed. Follow-up with your primary care provider on Monday to review urine culture results. This will ensure you're taking appropriate antibiotics for the type of infection you have. Return to the ER if symptoms worsen. All discharge instructions reviewed with patient and/or family. Voiced understanding. Scripts Phenazopyridine HCl (Pyridium)200 Mg Tablet1 Tab PO TID PRN PAIN #10 TAB Prov:BINU JAVIER MD 07/08/16 Cefdinir 300 Mg [id number] Mg PO BID #20 CAP Prov:BINU JAVIER MD 07/08/16 Ciprofloxacin HCl (Cipro)500 Mg [id number] Mg PO BID #20 TAB Prov:BINU JAVIER MD 07/08/16 BINU JAVIER MD Jul 08, 2016 17:25
[2016-07-08] MEDS ORDERED: CEFDINIR 300 MG (OMNICEF) CAP PO ONE (17:30)
[2016-07-08] MEDS ORDERED: HYOSCYAMINE 0.125 MG (LEVSIN) TAB PO ONE (17:30)
[2016-07-08] MEDS ORDERED: PHENAZOPYRIDINE 100 MG (PYRIDIUM) TABLET PO ONE (17:30)
[2016-07-08] MEDS ORDERED: CIPROFLOXACIN 500 MG (CIPRO) TABLET PO ONE (17:30)
[2016-07-08 17:45] VITALS: BP 118/62
== END 2016-07-08 17:45 | disposition home or self-care (01) ==
LOC: EDUNIT# 15:52 → ER 15:53
DX: N39.0 Urinary tract infection, site not specified (principal); N32.89 Other specified disorders of bladder; I10 Essential (primary) hypertension; J44.9 Chronic obstructive pulmonary disease, unspecified; Z79.899 Other long term (current) drug therapy
CPT/HCPCS: 81000; 87077; 87088; 87186; 99282

== ENCOUNTER 2016-08-21 17:55 | Emergency (ER) | payer MEDICARE, MEDICAID ==
[~2016-08-21] VITALS: Ht 162.6 cm; Wt 53.5 kg
[~2016-08-21 17:55] MED LIST changes: +CEFD300C3 PO; +PHEN-640 PO
[2016-08-21] MEDS ORDERED: LACTATED RINGERS 1,000 ML IV ONE (18:13)
[2016-08-21] MEDS ORDERED: KETOROLAC 30 MG/ML VIAL IVP STA (18:13)
[2016-08-21] MEDS ORDERED: ONDANSETRON 4 MG/2 ML (SDV) Z0FRAN IVP ONE (18:15)
--- NOTE | 2016-08-21 18:20 | ED GU-Female ---
General Chief Complaint: -Female Stated Complaint: UTI SYMPTOMS Source: patient History of Present Illness Time seen by provider: 18:04 Initial Comments PT STATES "I HAVE ANOTHER UTI" C/O BURNING ON URINATION, LOWER ABDOMINAL PAIN AND CRAMPING AND BILATERAL FLANK PAIN--RIGHT > LEFT SYMPTOMS BEGAN ON Monday08/18/16 HAS HAD NAUSEA, NO VOMITING C/O CHILLS, BUT HAS NOT TAKEN TEMPERATURE STATES THIS IS A FREQUENT PROBLEM AND STATES "THEY CAN'T EVER FIGURE OUT WHAT'S WRONG" --YET STATES IT IS ALWAYS A UTI STATES SHE WAS TREATED WITH BACTRIM 2 WEEKS AGO AND SYMPTOMS GOT BETTER, THEN RETURNED THIS WEEK. STATES CULTURES DONE AT [facility] DID NOT GROW OUT ANY BACTERIA. STATES SHE WAS ALSO TREATED A MONTH AGO WITH UNKNOWN ANTIBIOTIC TOOK OTC "AZO" JUST PRIOR TO ARRIVAL TOOK 2 PERCOCET AT 1300 TODAY ON REVIEW OF OLD RECORDS, PT WAS SEEN HERE 06/25 AND GIVEN RX FOR CIPRO AND PYRIDIUM. HAD STATED THAT 4-6 WEEKS PRIOR TO THAT SHE WAS ON MACROBID. CULTURES GREW OUT KLEBSIELLA AND PROTEUS MIRABILIS, BOTH SENSITIVE TO CIPRO VISIT ON 07/08/16, WAS GIVEN RX'S FOR PYRIDIUM, CEFDINIR AND CIPRO--GREW OUT KLEBSIELLA, SENSITIVE TO MULTIPLE ANTIBIOTICS, INCLUDING MACROBID, CEPHALOSPORINS AND CIPRO, BUT RESISTANT TO BACTRIM. CULTURES HERE HAVE GROWN OUT KLEBSIELLA MULTIPLE TIMES. PT DOES NOT SEE A UROLOGIST AND HAS NEVER BEEN ON PROPHYLACTIC ANTIBIOTICS FOR THIS PROBLEM. HAD BEEN TO DR. SUAREZ A COUPLE OF TIMES YEARS AGO, BUT NOT FOR A LONG TIME. PCP: [facility], RAYA ZAVALA Allergies and Home Medications Allergies Coded Allergies: Sulfa (Sulfonamide Antibiotics) (Verified Allergy, Unknown, 05/29/16) acetaminophen (Verified Allergy, Unknown, 05/29/16) adhesive (Verified Allergy, Unknown, 05/29/16) fentanyl adhesive hydrocodone (Verified Allergy, Unknown, 05/29/16) meperidine (Verified Allergy, Unknown, HALLUCINATIONS, 05/29/16) pregabalin (Verified Allergy, Unknown, 07/10/16) Home Medications Cefdinir 300 Mg Capsule, 300 MG PO BID, #20 Prescribed by: BINU LAMBERT on 07/08/16 6727 Cefdinir 300 Mg Capsule, 300 MG PO BID, #30 Prescribed by: LORETO TIPTON on 08/21/162003 Chlordiazepoxide HCl 10 Mg Capsule, 10 MG PO 0800,1200, (Reported) Chlordiazepoxide HCl 10 Mg Capsule, 20 MG PO HS, (Reported) TAKES 2 (10MG) CAPSULES Ciprofloxacin HCl 500 Mg Tablet, 500 MG PO BID, #10 Ref 0 Prescribed by: ANDREW KANG on 06/25/16 1429 Ciprofloxacin HCl 500 Mg Tablet, 500 MG PO BID, #20 Prescribed by: BINU LAMBERT on 07/08/16 1739 Lactobacillus Acidophilus 1 Each Capsule, 2 EACH PO QID, #80 Prescribed by: LROETO TIPTON on 08/21/162003 Levofloxacin 750 Mg Tablet, 750 MG PO DAILY, #10 Prescribed by: LORETO TIPTON on 08/21/162003 Linaclotide 290 Mcg Capsule, 290 MCG PO DAILY PRN for CONSTIPATION, (Reported) Loratadine 10 Mg Capsule, 10 MG PO DAILY, (Reported) Melatonin/Pyridoxine 1 Each Tablet, 3 MG PO HS PRN for SLEEP, (Reported) Methocarbamol 500 Mg Tablet, 500 MG PO QID, #20 Prescribed by: LORETO TIPTON on 08/21/162003 Nitrofurantoin Monohyd/M-Cryst 100 Mg Capsule, 100 MG PO BID, #14 Ref 0 Prescribed by: RAISSA FUENTES on 06/03/16 1146 Ondansetron 8 Mg Tab.rapdis, 8 MG PO Q4H, #14 Prescribed by: LORETO TIPTON on 08/21/162003 Oxycodone HCl/Acetaminophen 1 Each Tablet, 1 TAB PO 0800,1400, (Reported) Oxycodone HCl/Acetaminophen 1 Each Tablet, 2 TAB PO HS, (Reported) Phenazopyridine HCl 100 Mg Tablet, 100 MG PO Q8H, #6 Ref 0 Prescribed by: ANDREW KANG on 06/25/16 1430 Phenazopyridine HCl 200 Mg Tablet, 1 TAB PO TID PRN for PAIN, #10 Prescribed by: BINU LAMBERT on 07/08/16 1739 Phenazopyridine HCl 200 Mg Tablet, 1 TAB PO TID, #15 Prescribed by: LORETO TIPTON on 08/21/162003 Prednisone 10 Mg Tab, 0 PO UD, #21 Ref 0 Take 6 tabs (60mg) daily, decrease by 1 tab (10mg) daily. Prescribed by: RAISSA FUENTES on 06/03/16 1146 Ranitidine HCl 150 Mg Tablet, 150-300 MG PO BID PRN for INDIGESTION, (Reported) Trazodone HCl 50 Mg Tablet, 100 MG PO HS, (Reported) TAKES 2 (50MG) TABLETS Constitutional: see HPI, chills Respiratory: no symptoms reported Cardiovascular: no symptoms reported Gastrointestinal: see HPI, abdominal pain, No diarrhea, nausea, No vomiting Genitourinary: see HPI, burning, dysuria, flank pain, pain Musculoskeletal: see HPI, back pain Skin: no symptoms reported Psychiatric/Neurological: No Symptoms Reported Endocrine: No Symptoms Reported Hematologic/Lymphatic: No Symptoms Reported Past Wvybyhk-Yrtign-Xjtysb Hx Patient Social History Alcohol Use: Regular Use (WINE EVERY EVENING) Recreational Drug Use: No Smoking Status: Current Everyday Smoker (2 PPD) Type Used: Cigarettes 2nd Hand Smoke Exposure: No Recent Foreign Travel: No Contact w/Someone Who Travel: No Recent Hopitalizations: Yes (Emphysema, UTI admit 05/2016) Immunizations Up To Date Tetanus Booster (TDap): Less than 5yrs Date of Pneumonia Vaccine: May 23, 2016 Date of Influenza Vaccine: May 23, 2016 Seasonal Allergies Seasonal Allergies: Yes Surgeries HX Surgeries: Yes (ADHESIOLYSIS X3, LEFT FOOT X2, C/S X2, HYSTERECTOMY--STATES "2 HYSTERECTOMIES"; RIGHT KNEE REPLACEMENT) Surgeries: Abdominal, Adenoidectomy, Section, Hysterectomy, Joint Replacement, Orthopedic, Tonsillectomy Respiratory Hx Respiratory Disorders: Yes Respiratory Disorders: COPD Cardiovascular Hx Cardiac Disorders: Yes Cardiac Disorders: Hypertension Neurological Hx Neurological Disorders: Yes Neurological Disorders: Headaches /Migraines 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 System Hx 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 Disorders: No Sexually Transmitted Disease: No HIV/AIDS: No Genitourinary Hx Genitourinary Disorders: Yes Genitourinary Disorders: Kidney Stones, UTI-Chronic Gastrointestinal Hx Gastrointestinal Disorders: Yes Gastrointestinal Disorders: Gastroesophageal Reflux, Chronic Constipation, Irritable Bowel Musculoskeletal Hx Musculoskeletal Disorders: Yes ("KNEE AND BACK PROBLEMS" "BULGING DISCS" ) Musculoskeletal Disorders: Degenerate Disk Disease, Osteoporosis, Arthritis, Fibromyalgia, Chronic Back Pain Endocrine Hx Endocrine Disorders: No HEENT HX ENT Disorders: Yes (DENTURES, READING GLASSES) Loss of Vision: Bilateral Cancer Hx Cancer: No Psychosocial Hx Psychiatric Problems: Yes (Pt states she had Bulemia years ago and lowest weight was 94 lbs ) Behavioral Health Disorders: Anxiety, PTSD, Depression Integumentary HX Skin/Integumentary Disorder: No Blood Transfusions Hx Blood Disorders: Yes (HX OF ANEMIA) Adverse Reaction to a Blood Tr: No (HAS FLUSHING BUT NO REACTION) Family Medical History Family Medial History: Abdominal aortic aneurysm Alzheimer's disease 19 MOTHER Cardiovascular disease 19 FATHER ( AT 46 FROM HEART ATTACK) G8 SISTER Hypercholesterolemia 19 FATHER Hypertension 19 FATHER 19 MOTHER Myocardial infarction 19 FATHER Thyroid disease 19 MOTHER G8 SISTER Physical Exam Vital Signs Vital Sign - Last 12Hours 08/21/16 18:00 Temp 98.8 Pulse 120 Resp 28 B/P (MAP) 184/104 Pulse Ox 95 Capillary Refill : General Appearance: WD/WN, no apparent distress, thin HEENT: PERRL/EOMI Neck: normal inspection Cardiovascular: regular rate, rhythm, no murmur Respiratory: normal breath sounds, no respiratory distress, no accessory muscle use Gastrointestinal: normal bowel sounds, soft, no organomegaly, no pulsatile mass , tenderness (DIFFUSE LOWER ABDOMEN), No hernia, No mass Back: CVA tenderness (R), CVA tenderness (L) Extremities: normal inspection, no pedal edema, no calf tenderness, normal capillary refill 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: manager 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 II-XII nml as tested, no motor/sensory deficits, alert, oriented x 3 Skin: normal color, warm/dry, No rash Focused Exam Lactic Acid Level Laboratory Tests Test 08/21/16 18:30 Lactic Acid Level 1.03 MMOL/L (0.50-2.00) Progress/Results/Core Measures Results/Orders Lab Results Laboratory Tests Test 08/21/16 18:30 08/21/16 18:45 08/21/16 19:28 Range/Units Sodium Level 136 135-145 MMOL/L Potassium Level 3.2 L 3.6-5.0 MMOL/L Chloride Level 102 98-107 MMOL/L Carbon Dioxide Level 20 L 21-32 MMOL/L Anion Gap 14 5-14 MMOL/L Blood Urea Nitrogen 10 7-18 MG/DL Creatinine 0.80 0.60-1.30 MG/DL Estimat Glomerular Filtration Rate > 60 BUN/Creatinine Ratio 13 Glucose Level 90 70-105 MG/DL Lactic Acid Level 1.03 0.50-2.00 MMOL/L Calcium Level 9.0 8.5-10.1 MG/DL Total Bilirubin 0.4 0.1-1.0 MG/DL Aspartate Amino Transf (AST/SGOT) 13 5-34 U/L Alanine Aminotransferase (ALT/SGPT) < 6 0-55 U/L Alkaline Phosphatase 61 40-136 U/L Total Protein 7.1 6.4-8.2 G/DL Albumin 4.1 3.2-4.5 G/DL Amylase Level 102 25-125 U/L Lipase 156 H 8-78 U/L Serum Alcohol < 10 <10 MG/DL Urine Color YANET H Urine Clarity CLEAR Urine pH 7 5-9 Urine Specific Alva 1.010 L 1.016-1.022 Urine Protein 1+ H NEGATIVE Urine Glucose (UA) NEGATIVE NEGATIVE Urine Ketones NEGATIVE NEGATIVE Urine Nitrite POSITIVE H NEGATIVE Urine Bilirubin NEGATIVE NEGATIVE Urine Urobilinogen 1 NORMAL MG/DL Urine Leukocyte Esterase 3+ H NEGATIVE Urine RBC (Auto) 2+ H NEGATIVE Urine RBC 5-10 H /HPF Urine WBC >100 H /HPF Urine Crystals NONE /LPF Urine Bacteria MODERATE H /HPF Urine Casts NONE /LPF Urine Mucus NEGATIVE /LPF Urine Culture Indicated YES Urine Opiates Screen NEGATIVE NEGATIVE Urine Oxycodone Screen NEGATIVE NEGATIVE Urine Methadone Screen NEGATIVE NEGATIVE Urine Propoxyphene Screen NEGATIVE NEGATIVE Urine Barbiturates Screen NEGATIVE NEGATIVE Ur Tricyclic Antidepressants Screen NEGATIVE NEGATIVE Urine Phencyclidine Screen NEGATIVE NEGATIVE Urine Amphetamines Screen NEGATIVE NEGATIVE Urine Methamphetamines Screen NEGATIVE NEGATIVE Urine Benzodiazepines Screen POSITIVE H NEGATIVE Urine Cocaine Screen NEGATIVE NEGATIVE Urine Cannabinoids Screen NEGATIVE NEGATIVE White Blood Count 6.7 4.3-11.0 10^3/uL Red Blood Count 3.99 L 4.35-5.85 10^6/uL Hemoglobin 12.3 11.5-16.0 G/DL Hematocrit 39 35-52 % Mean Corpuscular Volume 99 80-99 FL Mean Corpuscular Hemoglobin 31 25-34 PG Mean Corpuscular Hemoglobin Concent 31 L 32-36 G/DL Red Cell Distribution Width 14.3 10.0-14.5 % Platelet Count 309 130-400 10^3/uL Mean Platelet Volume 9.9 7.4-10.4 FL Neutrophils (%) (Auto) 57 42-75 % Lymphocytes (%) (Auto) 32 12-44 % Monocytes (%) (Auto) 9 0-12 % Eosinophils (%) (Auto) 1 0-10 % Basophils (%) (Auto) 1 0-10 % Neutrophils # (Auto) 3.8 1.8-7.8 X 10^3 Lymphocytes # (Auto) 2.1 1.0-4.0 X 10^3 Monocytes # (Auto) 0.6 0.0-1.0 X 10^3 Eosinophils # (Auto) 0.1 0.0-0.3 10^3/uL Basophils # (Auto) 0.1 0.0-0.1 10^3/uL My Orders Orders - LORETO TIPTON DO Ua Culture If Indicated (08/21/16 18:02) Saline Lock/Iv-Start (08/21/16 18:13) Amylase (08/21/16 18:13) Cbc With Automated Diff (08/21/16 18:13) Comprehensive Metabolic Panel (08/21/16 18:13) Drug Screen Stat (Urine) (08/21/16 18:13) Lactic Acid Analyzer (08/21/16 18:13) Lipase (08/21/16 18:13) Blood Culture (08/21/16 18:13) Ct Abd/Pelvis Wo(Kidney Stone) (08/21/16 18:13) Abdomen/Kub 1view (08/21/16 18:13) Ondansetron Injection (Zofran Injectio (08/21/16 18:15) Saline Lock/Iv-Start (08/21/16 18:13) Lactated Ringers (Lr 1000 Ml Iv Solution (08/21/16 18:13) Ketorolac Injection (Toradol Injection) (08/21/16 18:13) Alcohol (08/21/16 18:30) Urine Culture (08/21/16 18:45) Ceftriaxone Injection (Rocephin Injectio (08/21/16 19:30) Promethazine Injection (Phenergan Injec (08/21/16 19:21) Orphenadrine Injection (Norflex Injectio (08/21/16 19:30) Levofloxacin Tablet (Levaquin Tablet) (08/21/16 20:15) Rx-Ondansetron Po (Rx-Zofran Po) (08/21/16 20:04) Medications Given in ED Current Medications Medications Dose Ordered Sig/Lisa Route Start Time Stop Time Status Last Admin Dose Admin Ceftriaxone Sodium 1000 mg/ Sodium Chloride 50 ml @ 100 mls/hr ONCE ONCE IV 08/21/16 19:30 08/21/16 19:59 DC 08/21/16 19:35 100 MLS/HR Lactated Ringer's 1,000 ml @ 0 mls/hr Q0M ONCE IV 08/21/16 18:13 08/21/16 18:15 DC 08/21/16 18:20 1,000 MLS/HR Ondansetron HCl 4 mg ONCE ONCE IVP 08/21/16 18:15 08/21/16 18:16 DC 08/21/16 18:21 4 MG Orphenadrine Citrate 60 mg ONCE ONCE IV 08/21/16 19:30 08/21/16 19:31 DC 08/21/16 19:35 60 MG Vital Signs/I&O Vital Sign - Last 12Hours 08/21/16 18:00 Temp 98.8 Pulse 120 Resp 28 B/P (MAP) 184/104 Pulse Ox 95 Progress Note : Progress Note UNEVENTFUL ER STAY Diagnostic Imaging Comments ACUTE ABDOMEN XRAYS--NO ACUTE PROCESS CT ABDOMEN/PELVIS--NO ACUTE PROCESS PER RADIOLOGIST REPORTS @ 1936 Reviewed: Reviewed by Me Departure Impression Impression: Primary Impression: Recurrent UTI Disposition: 01 HOME, SELF-CARE Condition: Stable Departure-Patient Inst. Referrals: RAISSA FUENTES MD (PCP/Family) Primary Care Physician Patient Instructions: Urinary Tract Infection, Adult (DC) Add. Discharge Instructions: CONTINUE YOUR REGULAR MEDICATIONS PRESCRIBED MOTRIN 800 MG 4 TIMES A DAY FOR PAIN OR FEVER FOLLOW UP WITH YOUR DR IN 3 DAYS FOR FURTHER CARE All discharge instructions reviewed with patient and/or family. Voiced understanding. Scripts Ondansetron (Zofran Odt) 8 Mg Tab.rapdis 8 MG PO Q4H for Nausea/Vomiting, #14 TAB Prov: SAEED,LORETO K DO 08/21/16 Methocarbamol (Robaxin) 500 Mg Tablet 500 MG PO QID for Muscle Spasms, #20 TAB Prov: SAEED,LORETO K DO 08/21/16 Phenazopyridine HCl (Pyridium) 200 Mg Tablet 1 TAB PO TID for BLADDER DISCOMFORT, #15 TAB Prov: SAEED,LORETO K DO 4/9/17 Levofloxacin (Levaquin) 750 Mg Tablet 750 MG PO DAILY, #10 TAB Prov: LORETO TIPTON DO 08/21/16 Cefdinir (Cefdinir) 300 Mg Capsule 300 MG PO BID for FOR INFECTION, #30 CAP Prov: LORETO TIPTON DO 08/21/16 Lactobacillus Acidophilus (Acidophilus) 1 Each Capsule 2 EACH PO QID, #80 CAP Prov: LORETO TIPTON DO 08/21/16 LORETO TIPTON DO Aug 21, 2016 18:20
[2016-08-21 18:52] LABS: KETONES,URINE NEGATIVE (NEGATIVE); LEUKOCYTE ESTERASE ,URINE 3+ (NEGATIVE); NITRITE,URINE POSITIVE (NEGATIVE); PH,URINE 7 (5-9); PROTEIN,URINE 1+ (NEGATIVE); UROBILINOGEN,URINE 1 MG/DL (NORMAL)
[2016-08-21 19:01] LABS: BILIRUBIN,URINE NEGATIVE (NEGATIVE); WBC,URINE >100 /HPF
[2016-08-21 19:08] LABS: ALANINE AMINOTRANSFERASE < 6 U/L (0-55); ALBUMIN 4.1 G/DL (3.2-4.5); AMYLASE 102 U/L (25-125); ANION GAP 14 MMOL/L (5-14); ASPARTATE AMINO TRANSFERASE 13 U/L (5-34); BILIRUBIN,TOTAL 0.4 MG/DL (0.1-1.0); BLOOD UREA NITROGEN 10 MG/DL (7-18); BUN/CREATININE RATIO 13; CARBON DIOXIDE 20 MMOL/L (21-32); CHLORIDE 102 MMOL/L (98-107); GFR ESTIMATED > 60; GLUCOSE 90 MG/DL (70-105); LIPASE 156 U/L (8-78); POTASSIUM 3.2 MMOL/L (3.6-5.0); SODIUM 136 MMOL/L (135-145); TOTAL PROTEIN 7.1 G/DL (6.4-8.2)
[2016-08-21] MEDS ORDERED: PROMETHAZINE INJ 25 MG/ML (PHENERGAN) AMP IVP STA (19:21)
--- NOTE | 2016-08-21 19:26 | Diagnostic Imaging Report ---
INDICATION: Right-sided flank pain, history of stones and hematuria KUB obtained at 7:23 p.m. Abdominal bowel gas pattern is unremarkable. There are injection granuloma over the gluteal regions on both sides. There is moderate stool throughout the colon. IMPRESSION: No definitive urinary tract calculi on this study. There are injection granuloma over the gluteal region on both sides. Bowel gas pattern is unremarkable with moderate stool in the colon. Dictated by: Dictated on workstation # [id number]
[2016-08-21 19:27] LABS: ALCOHOL < 10 MG/DL (<10)
--- NOTE | 2016-08-21 19:28 | Diagnostic Imaging Report ---
INDICATION: Right flank pain. EXAM: CT of the abdomen and pelvis obtained without IV contrast. COMPARISON: 06/11/2014. FINDINGS: The visualized portions of the lung bases are clear. There were no pleural fluid collections. There is no free intraperitoneal air. The liver shows no focal lesion without contrast. The gallbladder appears unremarkable. The spleen is not enlarged and shows no focal lesion. The adrenals and pancreas are normal. The kidneys bilaterally show no hydronephrosis. There are small calcifications near the renal hilum on both sides which appear to be vascular calcifications. There is no definite ureteral stone. There is no retroperitoneal mass or adenopathy. There is no ascites or abnormal fluid collection. The visualized bowel loops show no sign of obstruction or bowel wall thickening. There is moderate stool in the colon. The appendix is not visualized with certainty. There is no inflammatory reaction in its expected location. IMPRESSION: No definite urinary tract stone or hydronephrosis. There are calcifications in the renal hilum on both sides which are probably vascular in nature. There is no acute finding seen otherwise. Dictated by: Dictated on workstation # [id number]
[2016-08-21] MEDS ORDERED: cefTRIAXone INJECTION 1,000 MG in NS (IVPB) 50 ML IV ONE (19:30)
[2016-08-21] MEDS ORDERED: ORPHENADRINE 60 MG/2 ML (NORFLEX) AMP IV ONE (19:30)
[2016-08-21 19:56] LABS: BASOPHILS # (AUTO) 0.1 10^3/uL (0.0-0.1); BASOPHILS % (AUTO) 1 % (0-10); EOSINOPHILS # (AUTO) 0.1 10^3/uL (0.0-0.3); EOSINOPHILS % (AUTO) 1 % (0-10); LYMPHOCYTES # (AUTO) 2.1 X 10^3 (1.0-4.0); LYMPHOCYTES % (AUTO) 32 % (12-44); MEAN CORPUSCULAR HEMOGLOBIN 31 PG (25-34); MEAN CORPUSCULAR HGB CONC 31 G/DL (32-36); MEAN CORPUSCULAR VOLUME 99 FL (80-99); MEAN PLATELET VOLUME 9.9 FL (7.4-10.4); MONOCYTES # (AUTO) 0.6 X 10^3 (0.0-1.0); MONOCYTES % (AUTO) 9 % (0-12); NEUTROPHILS # (AUTO) 3.8 X 10^3 (1.8-7.8); NEUTROPHILS % (AUTO) 57 % (42-75); PLATELET COUNT 309 10^3/uL (130-400); RED BLOOD COUNT 3.99 10^6/uL (4.35-5.85); RED CELL DISTRIBUTION WIDTH 14.3 % (10.0-14.5); WHITE BLOOD COUNT 6.7 10^3/uL (4.3-11.0)
[2016-08-21] MEDS ORDERED: METH500T PO (20:04)
[2016-08-21] MEDS ORDERED: LACT1CAP8 PO (20:04)
[2016-08-21] MEDS ORDERED: CEFD300C3 PO (20:04)
[2016-08-21] MEDS ORDERED: ONDA8TAB9 PO (20:04)
[2016-08-21] MEDS ORDERED: LEVO750T9 PO (20:04)
[2016-08-21] MEDS ORDERED: PHEN-640 PO (20:04)
[2016-08-21] MEDS ORDERED: RX-ONDANSETRON 4 MG ODT (ZOFRAN) PPK #4 PO STA (20:04)
[2016-08-21] MEDS ORDERED: RX-ONDANSETRON 4 MG ODT (ZOFRAN) PPK #4 ONE (20:08)
[2016-08-21] MEDS ORDERED: LEVOFLOXACIN 500 MG TAB (LEVAQUIN) ONE (20:08)
[2016-08-21] MEDS ORDERED: LEVOFLOXACIN 500 MG TAB (LEVAQUIN) PO ONE (20:15)
[2016-08-21 20:29] VITALS: BP 168/78
--- OUTSIDE RECORDS SUMMARY | 2016-09-25 06:18 | XMS REPORT ---
Author Author VALERIE ZAVALA Organization [employer] Address Unknown Phone Unavailable Care Team Providers Care Cold Meat Cook Name Role Phone VALERIE ZAVALA CP Unavailable Allergies No Known Allergies Problems Problem Type Condition Code Onset Dates Condition Status Problem UTI symptoms R39.9 Active Problem Back pain M54.9 Active Problem Bone pain M89.8X9 Active Problem Weight loss R63.4 Active Problem Right upper quadrant abdominal pain R10.11 Active Problem Insomnia, unspecified type G47.00 Active Problem Depression, unspecified depression type F32.9 Active Problem Chronic pain G89.29 Active Problem Tobacco abuse Z72.0 Active Problem Weight decrease R63.4 Active Problem Other and unspecified hyperlipidemia 272.4 Active Problem Chronic airway obstruction, not elsewhere classified 496 Active Problem Hypokalemia E87.6 Active Problem Chronic pain syndrome 338.4 Active Problem Generalized anxiety disorder 300.02 Active Problem Right foot pain M79.671 Active Problem Calculus of kidney 592.0 Active Problem Right low back pain, with sciatica presence unspecified M54.5 Active Problem Abdominal pain, generalized 789.07 Active Problem Pain in right knee M25.561 Active Medications Medication Code System Code Instructions Start Date End Date Status Dosage Chlordiazepoxide HCl [facility] [address]-69 10 mg Orally 1 in AM and 1 in afternoon and 2 at hs 1 capsule Results No Known Results Summary Purpose [employer] Submission
--- OUTSIDE RECORDS SUMMARY | 2016-09-25 06:18 | XMS REPORT ---
Author Author VALERIE ZAVALA Organization [employer] Address Unknown Phone Unavailable Care Team Providers Care Supervisor Graphite Name Role Phone VALERIE ZAVALA CP Unavailable Allergies No Known Allergies Problems Problem Type Condition Code Onset Dates Condition Status Problem Pain in right knee M25.561 Active Problem Bone pain M89.8X9 Active Problem UTI symptoms R39.9 Active Problem Right upper quadrant abdominal pain R10.11 Active Problem Tobacco abuse Z72.0 Active Problem Weight loss R63.4 Active Problem Chronic pain G89.29 Active Problem Back pain M54.9 Active Problem Weight decrease R63.4 Active Problem Depression, unspecified depression type F32.9 Active Problem Chronic pain syndrome 338.4 Active Problem Other and unspecified hyperlipidemia 272.4 Active Problem Hypokalemia E87.6 Active Problem Abdominal pain, generalized 789.07 Active Problem Generalized anxiety disorder 300.02 Active Problem Chronic airway obstruction, not elsewhere classified 496 Active Problem Right foot pain M79.671 Active Problem Calculus of kidney 592.0 Active Problem Right low back pain, with sciatica presence unspecified M54.5 Active Medications Medication Code System Code Instructions Start Date End Date Status Dosage Potassium Chloride [facility] [address]-78 20 MEQ Orally Once a day Apr 01, 2015 1 capsule Results No Known Results Summary Purpose [employer] Submission
--- OUTSIDE RECORDS SUMMARY | 2016-09-25 06:18 | XMS REPORT ---
Author Author VALERIE ZAVALA Organization [employer] Address Unknown Phone Unavailable Care Team Providers Care Color Expert Name Role Phone VALERIE ZAVALA CP Unavailable Allergies No Known Allergies Problems Problem Type Condition Code Onset Dates Condition Status Problem Right foot pain M79.671 Active Problem Pain in right knee M25.561 Active Problem Right low back pain, with sciatica presence unspecified M54.5 Active Problem Weight decrease R63.4 Active Problem Depression, unspecified depression type F32.9 Active Problem Tobacco abuse Z72.0 Active Problem Bone pain M89.8X9 Active Problem UTI symptoms R39.9 Active Problem Chronic pain G89.29 Active Problem Back pain M54.9 Active Problem Hypokalemia E87.6 Active Problem Chronic airway obstruction, not elsewhere classified 496 Active Problem Calculus of kidney 592.0 Active Problem Chronic pain syndrome 338.4 Active Problem Abdominal pain, generalized 789.07 Active Problem Other and unspecified hyperlipidemia 272.4 Active Problem Generalized anxiety disorder 300.02 Active Medications Medication Code System Code Instructions Start Date End Date Status Dosage Percocet [facility] [address]-51 10-325 MG Orally every 6 hrs August 13, 2015 2 tablets Results No Known Results Summary Purpose [employer] Submission
--- OUTSIDE RECORDS SUMMARY | 2016-09-25 06:18 | XMS REPORT ---
Author Author VALERIE ZAVALA Organization [employer] Address Unknown Phone Unavailable Care Team Providers Care Car Parker Name Role Phone VALERIE ZAVALA CP Unavailable [...] Start Date End Date Status Dosage Percocet [facility] [address]-41 10-325 MG Orally 2 times a day August 13, 2015 2 tablets Lyrica [facility] [address]-58 150 MG Orally Twice a day Dec 14, 2015 1 capsule Results No Known Results Summary Purpose [employer] Submission
--- OUTSIDE RECORDS SUMMARY | 2016-09-25 06:19 | XMS REPORT ---
Author Author VALERIE ZAVALA Organization [employer] Address Unknown Phone Unavailable Care Team Providers Care Computer Hardware Designer Name Role Phone VALERIE ZAVALA CP Unavailable [...] Pain in right knee M25.561 Active Medications No Known Medications Results No Known Results Summary Purpose [employer] Submission
--- OUTSIDE RECORDS SUMMARY | 2016-09-25 06:19 | XMS REPORT ---
Author Author VALERIE ZAVALA Organization [employer] Address Unknown Phone Unavailable Care Team Providers Care Fence Setter Name Role Phone VALERIE ZAVALA CP Unavailable [...] Problem Generalized anxiety disorder 300.02 Active Medications No Known Medications Results No Known Results Summary Purpose [employer] Submission
--- OUTSIDE RECORDS SUMMARY | 2016-09-25 06:19 | XMS REPORT ---
Author Author VALERIE ZAVALA Organization [employer] Address Unknown Phone Unavailable Care Team Providers Care Artist Blacksmith Name Role Phone VALERIE ZAVALA CP Unavailable Allergies No Known Allergies Problems Problem Type Condition Code Onset Dates Condition Status Problem UTI symptoms R39.9 Active Problem Back pain M54.9 Active Problem Bone pain M89.8X9 Active Problem Weight loss R63.4 Active Assessment Insomnia, unspecified type G47.00 Active Problem Right upper quadrant abdominal pain [...] Instructions Start Date End Date Status Dosage Elavil [facility] [address]-33 25 MG Orally Once a day Jan 08, 2016 1 tablet at bedtime Results No Known Results Summary Purpose [employer] Submission
--- OUTSIDE RECORDS SUMMARY | 2016-09-25 06:19 | XMS REPORT ---
Author Author VALERIE ZAVALA Organization [employer] Address Unknown Phone Unavailable Care Team Providers Care Movie Editor Name Role Phone VALERIE ZAVALA CP Unavailable [...] Start Date End Date Status Dosage Percocet [facility] [address]-39 10-325 MG Orally every 6 hrs August 13, 2015 2 tablets Results No Known Results Summary Purpose eClinicalWorks Submission
--- OUTSIDE RECORDS SUMMARY | 2016-09-25 06:19 | XMS REPORT ---
Author Author VALERIE ZAVALA Organization [employer] Address Unknown Phone Unavailable Care Team Providers Care Gas Blender Name Role Phone VALERIE ZAVALA CP Unavailable [...] Date End Date Status Dosage Chlordiazepoxide HCl [facility] [address]-65 10 mg Orally 1 in AM and 1 in afternoon and 2 at hs 1 capsule Results No Known Results Summary Purpose eClinicalWorks Submission
--- OUTSIDE RECORDS SUMMARY | 2016-09-25 06:19 | XMS REPORT ---
Author Author VALERIE ZAVALA Organization [employer] Address Unknown Phone Unavailable Care Team Providers Care Lpn Instructor Name Role Phone VALERIE ZAVALA CP Unavailable Allergies No Known Allergies Problems Problem Type Condition Code Onset Dates Condition Status Problem Pain in right knee M25.561 Active Problem Bone pain M89.8X9 Active Problem UTI symptoms R39.9 Active Problem Right upper quadrant abdominal pain R10.11 Active Assessment Chronic pain G89.29 Active Problem Tobacco abuse Z72.0 Active Problem Weight loss R63.4 Active Problem Chronic pain G89.29 Active Problem Back pain M54.9 Active Problem Weight decrease R63.4 Active Problem Depression, unspecified depression type F32.9 Active Problem Chronic pain syndrome 338.4 Active Problem Other and unspecified hyperlipidemia 272.4 Active Assessment Hypokalemia E87.6 Active Problem Hypokalemia E87.6 Active Problem Abdominal pain, generalized 789.07 Active Problem Generalized anxiety disorder 300.02 Active Problem Chronic airway obstruction, not elsewhere classified 496 Active Problem Right foot pain M79.671 Active Problem Calculus of kidney 592.0 Active Problem Right low back pain, with sciatica presence unspecified M54.5 Active Medications No Known Medications Results No Known Results Summary Purpose eClinicalWorks Submission
--- OUTSIDE RECORDS SUMMARY | 2016-09-25 06:19 | XMS REPORT ---
Author LUISA Lucero Organization [employer] Address Unknown Phone Unavailable Care Team Providers Care Field Sales Engineer Name Role Phone LUISA DAVIS CP Unavailable Allergies No Known Allergies Problems Problem Type Condition ICD-9 Code Onset Dates Condition Status Assessment Abdominal pain, generalized 789.07 Active Problem Chronic pain syndrome 338.4 Active Problem Other and unspecified hyperlipidemia 272.4 Active Problem Dysuria 788.1 Active Problem Elevated blood pressure reading without diagnosis of hypertension 796.2 Active Problem Other postprocedural status V45.89 Active Problem Abdominal pain, right upper quadrant 789.01 Active Problem Other hammer toe (acquired) 735.4 Active Problem 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 Problem Hallux valgus (acquired) 735.0 Active Problem Enthesopathy of unspecified site 726.90 Active Problem 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 Problem Acute suppurative otitis media without spontaneous rupture of eardrum 382.00 Active Problem Herpes zoster without mention of complication 053.9 Active Problem Effusion of ankle and foot joint 719.07 Active Problem Pain in joint, site unspecified 719.40 Active Problem Abdominal pain, generalized 789.07 Active Problem Other disorders of bone and cartilage 733.99 Active Problem Unspecified backache 724.5 Active Problem Generalized anxiety disorder 300.02 Active Problem Urinary tract infection, site not specified 599.0 Active Problem Urinary frequency 788.41 Active Problem Abdominal pain, other specified site 789.09 Active Problem Chronic airway obstruction, not elsewhere classified 496 Active Problem Unspecified gastritis and gastroduodenitis without mention of hemorrhage 535.50 Active Problem Painful respiration 786.52 Active Problem Acute sinusitis, unspecified 461.9 Active Problem Calculus of kidney 592.0 Active Medications No Known Medications Procedures Procedure Coding System Code Date URINALYSIS, AUTO, W/O SCOPE CPT-4 65270 Jan 23, 2015 Results No Known Results Summary Purpose eClinicalWorks Submission
--- OUTSIDE RECORDS SUMMARY | 2016-09-25 06:20 | XMS REPORT ---
Author Author VALERIE ZAVALA Organization [employer] Address Unknown Phone Unavailable Care Team Providers Care Diamond Polisher Name Role Phone VALERIE ZAVALA CP Unavailable Allergies No Known Allergies Problems Problem Type Condition Code Onset Dates Condition Status Problem Abdominal pain, generalized 789.07 Active Problem Calculus of kidney 592.0 Active Problem Generalized anxiety disorder 300.02 Active Problem Chronic pain syndrome 338.4 Active Problem Hypokalemia E87.6 Active Problem Chronic airway obstruction, not elsewhere classified 496 Active Problem Other and unspecified hyperlipidemia 272.4 Active Medications Medication Code System Code Instructions Start Date End Date Status Dosage Potassium Chloride ER [facility] [address]-43 20 MEQ Orally Once a day Apr 01, 2015 1 capsule Results No Known Results Summary Purpose eClinicalWorks Submission
--- OUTSIDE RECORDS SUMMARY | 2016-09-25 06:20 | XMS REPORT ---
Author VALERIE Lama [facility] eClinicalWorks Address Unknown Phone Unavailable Care Team Providers Care Recycling Collections Driver Name Role Phone VALERIE ZAVALA CP Unavailable Allergies, Adverse Reactions, Alerts Substance Reaction Event Type Sulfur rash Drug Allergy Remeron itching Drug Allergy Morphine Sulfate nausea Drug Allergy Fentanyl 25 Mcg/hr Patch 72 Hr Info Not Available Non Drug Allergy Problems Problem Type Condition Code Onset Dates Condition Status Problem UTI symptoms R39.9 Active Problem Back pain M54.9 Active Problem Bone pain M89.8X9 Active Problem Weight loss R63.4 Active Assessment Chronic pain G89.29 Active Problem Right upper quadrant abdominal pain [...] Instructions Start Date End Date Status Dosage Dicyclomine HCl [facility] [address]-18 20 mg Orally 3 times a day 1 tablet 30 to 60 minutes before meals Chlordiazepoxide HCl [facility] [address]-82 10 mg Orally 1 in AM and 1 in afternoon and 2 at hs 1 capsule Percocet [facility] [address]-11 10-325 MG Orally 4 times a day August 13, 2015 1 tablet as needed Loratadine [facility] 29897312315 10 MG Orally Once a day 1 tablet Linzess [facility] 35208325791 290 MCG Orally Once a day 1 capsule Ibuprofen [facility] [address]-08 600 MG Orally Three times a day 1 tablet with food as needed Lyrica [facility] [address]-37 50 mg Orally bedtime Dec 14, 2015 1 capsule Zantac [facility] [address]-95 150 MG Orally Twice a day 1-2 tablets as needed for heartburn Potassium Chloride ER [facility] [address]-83 20 MEQ Orally Once a day Apr 01, 2015 1 capsule Procedures Procedure Coding System Code Date Office Visit, Est Pt., Level 3 CPT-4 99888 Jan 20, 2016 [facility] VISIT ESTABLISHED PATIENT CPT-4 G0467 Jan 20, 2016 Vital Signs Date/Time: Jan 20, 2016 Cardiac Monitoring Heart Rate irregular:88 bpm Weight 127 lbs Height 64 in BMI 21.80 Index Blood Pressure Diastolic 84 mmHg Blood Pressure Systolic 134 mmHg Results No Known Results Summary Purpose eClinicalWorks Submission
--- OUTSIDE RECORDS SUMMARY | 2016-09-25 06:20 | XMS REPORT ---
Author Author VALERIE ZAVALA Organization [employer] Address Unknown Phone Unavailable Care Team Providers Care Reheat Furnace Operator Name Role Phone VALERIE ZAVALA CP Unavailable [...] Dosage Percocet [facility] [address]-07 10-325 MG Orally 4 times a day August 13, 2015 1 tablet as needed Results No Known Results Summary Purpose eClinicalWorks Submission
--- OUTSIDE RECORDS SUMMARY | 2016-09-25 06:20 | XMS REPORT ---
Author Author CLAUDIO SALGADO Organization [employer] Address Unknown Phone Unavailable Care Team Providers Care Griddle Attendant Name Role Phone CLAUDIO SALGADO CP Unavailable Allergies No Known Allergies Problems Problem Type Condition ICD-9 Code Onset Dates Condition Status Problem Chronic pain syndrome 338.4 Active Problem [...] kidney 592.0 Active Medications No Known Medications Results No Known Results Summary Purpose eClinicalWorks Submission
--- OUTSIDE RECORDS SUMMARY | 2016-09-25 06:20 | XMS REPORT ---
Author BRAYAN Reynaga [facility] eClinicalWorks Address Unknown Phone Unavailable Care Team Providers Care Grab Jack Worker Name Role Phone BRAYAN WELCH CP Unavailable Allergies, Adverse Reactions, Alerts Substance [...] Active Problem Weight loss R63.4 Active Assessment Depression, unspecified depression type F32.9 Active Problem Right upper quadrant abdominal pain R10.11 Active Assessment Generalized anxiety disorder 300.02 Active Problem Insomnia, unspecified type G47.00 Active [...] knee M25.561 Active Medications No Known Medications Procedures Procedure Coding System Code Date Psych diagnostic evaluation, new patient CPT-4 40920 Jan 13, 2016 Results No Known Results Summary Purpose eClinicalWorks Submission
--- OUTSIDE RECORDS SUMMARY | 2016-09-25 06:20 | XMS REPORT ---
Author Author LUISA DAVIS Organization [employer] Address Unknown Phone Unavailable Care Team Providers Care Government Affairs Researcher Name Role Phone LUISA DAVIS CP Unavailable [...] Problem Calculus of kidney 592.0 Active Medications Medication Code System Code Instructions Start Date End Date Status Dosage Cipro [facility] [address]-99 500 MG Orally Twice a day Jan 23, 2015 Jan 28, 2015 1 tablet Results No Known Results Summary Purpose eClinicalWorks Submission
--- OUTSIDE RECORDS SUMMARY | 2016-09-25 06:20 | XMS REPORT ---
Author Author VALERIE ZAVALA Organization [employer] Address Unknown Phone Unavailable Care Team Providers Care Production Zone Leader Name Role Phone VALERIE ZAVALA CP Unavailable [...] Start Date End Date Status Dosage Percocet [facility] [address]-74 10-325 MG Orally every 6 hrs August 13, 2015 2 tablets Results No Known Results Summary Purpose eClinicalWorks Submission
--- OUTSIDE RECORDS SUMMARY | 2016-09-25 06:21 | XMS REPORT ---
Author Author VALERIE ZAVALA Organization [employer] Address Unknown Phone Unavailable Care Team Providers Care Control Panel Assembler Name Role Phone VALERIE ZAVALA CP Unavailable [...]
--- OUTSIDE RECORDS SUMMARY | 2016-09-25 06:29 | XMS REPORT ---
Author VALERIE Lama Organization [employer] Address Unknown Phone Unavailable Care Team Providers Care Private Investigator Surveillance Name Role Phone VALERIE ZAVALA CP Unavailable [...] G89.29 Active Problem Back pain M54.9 Active Assessment UTI symptoms R39.9 Active Problem Hypokalemia E87.6 Active Problem Chronic airway obstruction, not elsewhere classified 496 Active Problem Calculus of kidney 592.0 Active Problem Chronic pain syndrome 338.4 Active Problem Abdominal pain, generalized 789.07 Active Problem Other and unspecified hyperlipidemia 272.4 Active Problem Generalized anxiety disorder 300.02 Active Medications Medication Code System Code Instructions Start Date End Date Status Dosage Cipro [facility] [address]-57 500 MG Orally Twice a day September 09, 2015 September 19, 2015 1 tablet Procedures Procedure Coding System Code Date URINALYSIS, AUTO, W/O SCOPE CPT-4 24598 September 09, 2015 Results No Known Results Summary Purpose eClinicalWorks Submission
--- OUTSIDE RECORDS SUMMARY | 2016-09-25 06:29 | XMS REPORT | Continuity of Care Document ---
Author Author [facility] Address Unknown Phone Unavailable Allergies Active Description Code Type Severity Reaction Onset Reported/Identified Relationship to Patient Clinical Status Yes fear of needles-will pass out OA N/A N/A 08/14/2008 Yes fear of needles-will pass out OA 08/14/2008 Yes hydrochlorothiazide Drug Allergy N/A N/A 01/27/2009 Yes hydrochlorothiazide Drug Allergy 01/27/2009 Yes sulfa drug Drug Allergy 06/23/2010 Yes acetaminophen [id number] Drug Allergy Unknown NAUSEA 10/29/2014 Yes hydrocodone [id number] Drug Allergy Unknown NAUSEA 10/29/2014 Yes fentanyl [id number] Drug Allergy Unknown N/A 01/01/2015 Yes acetaminophen [id number] Drug Allergy Unknown N/A 05/29/2016 Yes adhesive [id number] Drug Allergy Unknown N/A 05/29/2016 Yes hydrocodone [id number] Drug Allergy Unknown N/A 05/29/2016 Yes meperidine [id number] Drug Allergy Unknown HALLUCINATIONS 05/29/2016 Yes Sulfa (Sulfonamide Antibiotics) [id number] Drug Allergy Unknown N/A 05/29/2016 Yes pregabalin [id number] Drug Allergy Unknown N/A 07/10/2016 Medications Problems Date Dx Coded Attending Type Code Diagnosis Diagnosed By 08/14/2008 KARO YATES DO 599.70 Blood In Urine 08/14/2008 KARO YATES DO 789.00 Abdominal Pain 08/14/2008 KARO YATES DO 599.70 Blood In Urine 08/14/2008 KARO YATES DO 789.00 Abdominal Pain 08/14/2008 ZORAIDA ESPAÑA APRN 599.70 Blood In Urine 08/14/2008 ZORAIDA ESPAÑA APRN 789.00 Abdominal Pain 08/14/2008 599.70 Blood In Urine 08/14/2008 789.00 Abdominal Pain 08/14/2008 SALLY CHILD WELFARE ASSISTANT, VALERIE S 599.70 Blood In Urine 08/14/2008 SALLY CHILD WELFARE ASSISTANT, VALERIE S 789.00 Abdominal Pain 08/14/2008 YATES DO, KARO K 599.70 Blood In Urine 08/14/2008 YATES DO, KARO K 789.00 Abdominal Pain 08/14/2008 SALLY CHILD WELFARE ASSISTANT, VALERIE S 599.70 Blood In Urine 08/14/2008 SALLY CHILD WELFARE ASSISTANT, VALERIE S 789.00 Abdominal Pain 08/14/2008 SALLY CHILD WELFARE ASSISTANT, VALERIE S 599.70 Blood In Urine 08/14/2008 SALLY CHILD WELFARE ASSISTANT, VALERIE S 789.00 Abdominal Pain 08/14/2008 YATES DO, KARO K 599.70 Blood In Urine 08/14/2008 YATES DO, KARO K 789.00 Abdominal Pain 08/14/2008 599.70 Blood In Urine 08/14/2008 789.00 Abdominal Pain 08/14/2008 599.70 Blood In Urine 08/14/2008 789.00 Abdominal Pain 08/14/2008 599.70 Blood In Urine 08/14/2008 789.00 Abdominal Pain 08/14/2008 MICHELLE CAMARGO MD 599.70 Blood In Urine 08/14/2008 MICHELLE CAMARGO MD 789.00 Abdominal Pain 08/14/2008 SALLY PERSAUDN, VALERIE S 599.70 Blood In Urine 08/14/2008 SALLY CHILD WELFARE ASSISTANT, VALERIE S 789.00 Abdominal Pain 08/14/2008 SALLY PERSAUDN, VALERIE S 599.70 Blood In Urine 08/14/2008 SALLY CHILD WELFARE ASSISTANT, VALERIE S 789.00 Abdominal Pain 08/14/2008 YATES DO, KARO K 599.70 Blood In Urine 08/14/2008 YATES DO, KARO K 789.00 Abdominal Pain 08/14/2008 SALLY CHILD WELFARE ASSISTANT, VALERIE S 599.70 Blood In Urine 08/14/2008 SALLY CHILD WELFARE ASSISTANT, VALERIE S 789.00 Abdominal Pain 08/14/2008 YATES DO, KARO K 599.70 Blood In Urine 08/14/2008 YATES DO, KARO K 789.00 Abdominal Pain 08/14/2008 SALLY CHILD WELFARE ASSISTANT, VALERIE S 599.70 Blood In Urine 08/14/2008 SALLY CHILD WELFARE ASSISTANT, VALERIE S 789.00 Abdominal Pain 08/14/2008 SALLY CHILD WELFARE ASSISTANT, VALERIE S 599.70 Blood In Urine 08/14/2008 SALLY CHILD WELFARE ASSISTANT, VALERIE S 789.00 Abdominal Pain 08/14/2008 SALLY CHILD WELFARE ASSISTANT, VALERIE S 599.70 Blood In Urine 08/14/2008 SALLY CHILD WELFARE ASSISTANT, VALERIE S 789.00 Abdominal Pain 08/14/2008 SALLY CHILD WELFARE ASSISTANT, VALERIE S 599.70 Blood In Urine 08/14/2008 SALLY CHILD WELFARE ASSISTANT, VALERIE S 789.00 Abdominal Pain 08/14/2008 SALLY CHILD WELFARE ASSISTANT, VALERIE S 599.70 Blood In Urine 08/14/2008 SALLY CHILD WELFARE ASSISTANT, VALERIE S 789.00 Abdominal Pain 08/14/2008 SALLY CHILD WELFARE ASSISTANT, VALERIE S 599.70 Blood In Urine 08/14/2008 SALLY CHILD WELFARE ASSISTANT, VALERIE S 789.00 Abdominal Pain 08/14/2008 SALLY CHILD WELFARE ASSISTANT, VALERIE S 599.70 Blood In Urine 08/14/2008 SALLY CHILD WELFARE ASSISTANT, VALERIE S 789.00 Abdominal Pain 08/14/2008 YATES DO, KARO K 599.70 Blood In Urine 08/14/2008 YATES DO, KARO K 789.00 Abdominal Pain 08/14/2008 SALLY CHILD WELFARE ASSISTANT, VALERIE S 599.70 Blood In Urine 08/14/2008 SALLY CHILD WELFARE ASSISTANT, VALERIE S 789.00 Abdominal Pain 08/14/2008 YATES DO, KARO K 599.70 Blood In Urine 08/14/2008 YATES DO, KARO K 789.00 Abdominal Pain 08/14/2008 SALLY CHILD WELFARE ASSISTANT, VALREIE S 599.70 Blood In Urine 08/14/2008 SALLY CHILD WELFARE ASSISTANT, VALERIE S 789.00 Abdominal Pain 08/14/2008 SALLY CHILD WELFARE ASSISTANT, VALERIE S 599.70 Blood In Urine 08/14/2008 SALLY CHILD WELFARE ASSISTANT, VALERIE S 789.00 Abdominal Pain 08/14/2008 SALLY CHILD WELFARE ASSISTANT, VALERIE S 599.70 Blood In Urine 08/14/2008 SALLY CHILD WELFARE ASSISTANT, VALERIE S 789.00 Abdominal Pain 08/14/2008 YATES DO, KARO K 599.70 Blood In Urine 08/14/2008 YATES DO, KARO K 789.00 Abdominal Pain 08/14/2008 SALLY CHILD WELFARE ASSISTANT, VALERIE S 599.70 Blood In Urine 08/14/2008 SALLY CHILD WELFARE ASSISTANT, VALERIE S 789.00 Abdominal Pain 09/09/2008 YATES DO, KARO K 599.0 Urinary Tract Infection 09/09/2008 YATES DO, KARO K 599.0 Urinary Tract Infection 09/09/2008 TACO CHILD WELFARE ASSISTANT, ZORAIDA R 599.0 Urinary Tract Infection 09/09/2008 599.0 Urinary Tract Infection 09/09/2008 SALLY CHILD WELFARE ASSISTANT, VALERIE S 599.0 Urinary Tract Infection 09/09/2008 YATES DO, KARO K 599.0 Urinary Tract Infection 09/09/2008 SALLY CHILD WELFARE ASSISTANT, VALERIE S 599.0 Urinary Tract Infection 09/09/2008 SALLY CHILD WELFARE ASSISTANT, VALERIE S 599.0 Urinary Tract Infection 09/09/2008 YATES DO, KARO K 599.0 Urinary Tract Infection 09/09/2008 599.0 Urinary Tract Infection 09/09/2008 599.0 Urinary Tract Infection 09/09/2008 599.0 Urinary Tract Infection 09/09/2008 MARY JO ABRAMS, MICHELLE 599.0 Urinary Tract Infection 09/09/2008 SALLY CHILD WELFARE ASSISTANT, VALERIE S 599.0 Urinary Tract Infection 09/09/2008 SALLY CHILD WELFARE ASSISTANT, VALERIE S 599.0 Urinary Tract Infection 09/09/2008 YATES DO, KARO K 599.0 Urinary Tract Infection 09/09/2008 SALLY CHILD WELFARE ASSISTANT, VALERIE S 599.0 Urinary Tract Infection 09/09/2008 YATES DO, KARO K 599.0 Urinary Tract Infection 09/09/2008 SALLY CHILD WELFARE ASSISTANT, VALERIE S 599.0 Urinary Tract Infection 09/09/2008 SALLY CHILD WELFARE ASSISTANT, VALERIE S 599.0 Urinary Tract Infection 09/09/2008 SALLY CHILD WELFARE ASSISTANT, VALERIE S 599.0 Urinary Tract Infection 09/09/2008 SALLY CHILD WELFARE ASSISTANT, VALERIE S 599.0 Urinary Tract Infection 09/09/2008 SALLY CHILD WELFARE ASSISTANT, VALERIE S 599.0 Urinary Tract Infection 09/09/2008 SALLY CHILD WELFARE ASSISTANT, VALERIE S 599.0 Urinary Tract Infection 09/09/2008 SALLY CHILD WELFARE ASSISTANT, VALERIE S 599.0 Urinary Tract Infection 09/09/2008 YATES DO, KARO K 599.0 Urinary Tract Infection 09/09/2008 SALLY CHILD WELFARE ASSISTANT, VALERIE S 599.0 Urinary Tract Infection 09/09/2008 YATES DO, KARO K 599.0 Urinary Tract Infection 09/09/2008 SALLY CHILD WELFARE ASSISTANT, VALERIE S 599.0 Urinary Tract Infection 09/09/2008 SALLY CHILD WELFARE ASSISTANT, VALERIE S 599.0 Urinary Tract Infection 09/09/2008 SALLY CHILD WELFARE ASSISTANT, VALERIE S 599.0 Urinary Tract Infection 09/09/2008 YATES DO, KARO K 599.0 Urinary Tract Infection 09/09/2008 SALLY CHILD WELFARE ASSISTANT, VALERIE S 599.0 Urinary Tract Infection 09/30/2008 YATES DO, KARO K 564.1 IRRITABLE BOWEL SYNDROME 09/30/2008 YATES DO, KARO K 724.2 LUMBAGO 09/30/2008 YATES DO, KARO K 564.1 IRRITABLE BOWEL SYNDROME 09/30/2008 YATES DO, KARO K 724.2 LUMBAGO 09/30/2008 TACO CHILD WELFARE ASSISTANT ZORAIDA R 564.1 IRRITABLE BOWEL SYNDROME 09/30/2008 TACO CHILD WELFARE ASSISTANT, ZORAIDA R 724.2 LUMBAGO 09/30/2008 564.1 IRRITABLE BOWEL SYNDROME 09/30/2008 724.2 LUMBAGO 09/30/2008 SALLY CHILD WELFARE ASSISTANT, VALERIE S 564.1 IRRITABLE BOWEL SYNDROME 09/30/2008 SALLY CHILD WELFARE ASSISTANT, VALERIE S 724.2 LUMBAGO 09/30/2008 YATES DO, KARO K 564.1 IRRITABLE BOWEL SYNDROME 09/30/2008 YATES DO, KARO K 724.2 LUMBAGO 09/30/2008 SALLY CHILD WELFARE ASSISTANT, VALERIE S 564.1 IRRITABLE BOWEL SYNDROME 09/30/2008 SALLY RIVERA VALERIE S 724.2 LUMBAGO 09/30/2008 SERINA ZAVALA APRNNDA S 564.1 IRRITABLE BOWEL SYNDROME 09/30/2008 SALLY RIVERA VALERIE S 724.2 LUMBAGO 09/30/2008 YATES DO, KARO K 564.1 IRRITABLE BOWEL SYNDROME 09/30/2008 YATES DO, KARO K 724.2 LUMBAGO 09/30/2008 564.1 IRRITABLE BOWEL SYNDROME 09/30/2008 724.2 LUMBAGO 09/30/2008 564.1 IRRITABLE BOWEL SYNDROME 09/30/2008 724.2 LUMBAGO 09/30/2008 564.1 IRRITABLE BOWEL SYNDROME 09/30/2008 724.2 LUMBAGO 09/30/2008 MICHELLE CAMARGO MD 564.1 IRRITABLE BOWEL SYNDROME 09/30/2008 MICHELLE CAMARGO MD 724.2 LUMBAGO 09/30/2008 SERINA ZAVALA APRNNDA S 564.1 IRRITABLE BOWEL SYNDROME 09/30/2008 SERINA ZAVALA APRNNDA S 724.2 LUMBAGO 09/30/2008 SERINA ZAVALA APRNNDA S 564.1 IRRITABLE BOWEL SYNDROME 09/30/2008 SERINA ZAVALA APRNNDA S 724.2 LUMBAGO 09/30/2008 YATES DO, KARO K 564.1 IRRITABLE BOWEL SYNDROME 09/30/2008 YATES DO, KARO K 724.2 LUMBAGO 09/30/2008 SERINA ZAVALA APRNNDA S 564.1 IRRITABLE BOWEL SYNDROME 09/30/2008 SALLY RIVERA VALERIE S 724.2 LUMBAGO 09/30/2008 YATES DO, KARO K 564.1 IRRITABLE BOWEL SYNDROME 09/30/2008 YATES DO, KARO K 724.2 LUMBAGO 09/30/2008 SALLY RIVERA VALERIE S 564.1 IRRITABLE BOWEL SYNDROME 09/30/2008 SALLY RIVERA VALERIE S 724.2 LUMBAGO 09/30/2008 SALLY RIVERA VALERIE S 564.1 IRRITABLE BOWEL SYNDROME 09/30/2008 SALLY CHILD WELFARE ASSISTANT, VALERIE S 724.2 LUMBAGO 09/30/2008 SALLY CHILD WELFARE ASSISTANT, VALERIE S 564.1 IRRITABLE BOWEL SYNDROME 09/30/2008 SALLY CHILD WELFARE ASSISTANT, VALERIE S 724.2 LUMBAGO 09/30/2008 SALLY CHILD WELFARE ASSISTANT, VALERIE S 564.1 IRRITABLE BOWEL SYNDROME 09/30/2008 SALLY CHILD WELFARE ASSISTANT, VALERIE S 724.2 LUMBAGO 09/30/2008 SALLY CHILD WELFARE ASSISTANT, VALERIE S 564.1 IRRITABLE BOWEL SYNDROME 09/30/2008 SALLY CHILD WELFARE ASSISTANT, VALERIE S 724.2 LUMBAGO 09/30/2008 SALLY CHILD WELFARE ASSISTANT, VALERIE S 564.1 IRRITABLE BOWEL SYNDROME 09/30/2008 SALLY CHILD WELFARE ASSISTANT, VAELRIE S 724.2 LUMBAGO 09/30/2008 SALLY CHILD WELFARE ASSISTANT, VALERIE S 564.1 IRRITABLE BOWEL SYNDROME 09/30/2008 SALLY CHILD WELFARE ASSISTANT, VALERIE S 724.2 LUMBAGO 09/30/2008 YATES DO, KARO K 564.1 IRRITABLE BOWEL SYNDROME 09/30/2008 YATES DO, KARO K 724.2 LUMBAGO 09/30/2008 SALLY CHILD WELFARE ASSISTANT, VALERIE S 564.1 IRRITABLE BOWEL SYNDROME 09/30/2008 SALLY CHILD WELFARE ASSISTANT, VALERIE S 724.2 LUMBAGO 09/30/2008 YATES DO, KARO K 564.1 IRRITABLE BOWEL SYNDROME 09/30/2008 YATES DO, KARO K 724.2 LUMBAGO 09/30/2008 SALLY CHILD WELFARE ASSISTANT, VALERIE S 564.1 IRRITABLE BOWEL SYNDROME 09/30/2008 SALLY CHILD WELFARE ASSISTANT, VALERIE S 724.2 LUMBAGO 09/30/2008 SALLY CHILD WELFARE ASSISTANT, VALERIE S 564.1 IRRITABLE BOWEL SYNDROME 09/30/2008 SALLY CHILD WELFARE ASSISTANT, VALERIE S 724.2 LUMBAGO 09/30/2008 SALLY CHILD WELFARE ASSISTANT, VALERIE S 564.1 IRRITABLE BOWEL SYNDROME 09/30/2008 SALLY CHILD WELFARE ASSISTANT, VALERIE S 724.2 LUMBAGO 09/30/2008 YATES DO, KARO K 564.1 IRRITABLE BOWEL SYNDROME 09/30/2008 YATES DO, KARO K 724.2 LUMBAGO 09/30/2008 SALLY CHILD WELFARE ASSISTANT, VALERIE S 564.1 IRRITABLE BOWEL SYNDROME 09/30/2008 SALLY CHILD WELFARE ASSISTANT, VALERIE S 724.2 LUMBAGO 10/21/2008 YATES DO, KARO K 788.1 Dysuria 10/21/2008 YATES DO, KARO K 788.1 Dysuria 10/21/2008 CHARLEEN ESPAÑA APRNRICIA R 788.1 Dysuria 10/21/2008 788.1 Dysuria 10/21/2008 SALLY CHILD WELFARE ASSISTANT, VALERIE S 788.1 Dysuria 10/21/2008 YATES DO, KARO K 788.1 Dysuria 10/21/2008 SALLY CHILD WELFARE ASSISTANT, VALERIE S 788.1 Dysuria 10/21/2008 SALLY CHILD WELFARE ASSISTANT, VALERIE S 788.1 Dysuria 10/21/2008 YATES DO, KARO K 788.1 Dysuria 10/21/2008 788.1 Dysuria 10/21/2008 788.1 Dysuria 10/21/2008 788.1 Dysuria 10/21/2008 MARY JO ABRAMS, MICHELLE 788.1 Dysuria 10/21/2008 SALLY CHILD WELFARE ASSISTANT, VALREIE S 788.1 Dysuria 10/21/2008 SALLY CHILD WELFARE ASSISTANT, VALERIE S 788.1 Dysuria 10/21/2008 YATES DO, KARO K 788.1 Dysuria 10/21/2008 SALLY CHILD WELFARE ASSISTANT, VALERIE S 788.1 Dysuria 10/21/2008 YATES DO, KARO K 788.1 Dysuria 10/21/2008 SALLY CHILD WELFARE ASSISTANT, VALERIE S 788.1 Dysuria 10/21/2008 SALLY CHILD WELFARE ASSISTANT, VALERIE S 788.1 Dysuria 10/21/2008 SALLY CHILD WELFARE ASSISTANT, VALERIE S 788.1 Dysuria 10/21/2008 SALLY CHILD WELFARE ASSISTANT, VALERIE S 788.1 Dysuria 10/21/2008 SALLY CHILD WELFARE ASSISTANT, VALERIE S 788.1 Dysuria 10/21/2008 SALLY CHILD WELFARE ASSISTANT, VALERIE S 788.1 Dysuria 10/21/2008 SALLY CHILD WELFARE ASSISTANT, VALERIE S 788.1 Dysuria 10/21/2008 YATES DO, KARO K 788.1 Dysuria 10/21/2008 SALLY CHILD WELFARE ASSISTANT, VALERIE S 788.1 Dysuria 10/21/2008 YATES DO, KARO K 788.1 Dysuria 10/21/2008 SALLY CHILD WELFARE ASSISTANT, VALERIE S 788.1 Dysuria 10/21/2008 SALLY CHILD WELFARE ASSISTANT, VALERIE S 788.1 Dysuria 10/21/2008 SALLY CHILD WELFARE ASSISTANT, VALERIE S 788.1 Dysuria 10/21/2008 YATES DO, KARO K 788.1 Dysuria 10/21/2008 SALLY CHILD WELFARE ASSISTANT, VALERIE S 788.1 Dysuria 01/13/2009 YATES DO, KARO K 300.00 Anxiety State Unspecified 01/13/2009 YATES DO, KARO K 401.9 UNSPECIFIED ESSENTIAL HYPERTENSION 01/13/2009 YATES DO, KARO K 300.00 Anxiety State Unspecified 01/13/2009 YATES DO, KARO K 401.9 UNSPECIFIED ESSENTIAL HYPERTENSION 01/13/2009 ESPAÑA CHILD WELFARE ASSISTANT, ZORAIDA R 300.00 Anxiety State Unspecified 01/13/2009 ESPAÑA CHILD WELFARE ASSISTANT, ZORAIDA R 401.9 UNSPECIFIED ESSENTIAL HYPERTENSION 01/13/2009 300.00 Anxiety State Unspecified 01/13/2009 401.9 UNSPECIFIED ESSENTIAL HYPERTENSION 01/13/2009 SALLY CHILD WELFARE ASSISTANT, VALERIE S 300.00 Anxiety State Unspecified 01/13/2009 SALLY CHILD WELFARE ASSISTANT, VALERIE S 401.9 UNSPECIFIED ESSENTIAL HYPERTENSION 01/13/2009 YATES DO, KARO K 300.00 Anxiety State Unspecified 01/13/2009 YATES DO, KARO K 401.9 UNSPECIFIED ESSENTIAL HYPERTENSION 01/13/2009 SALLY CHILD WELFARE ASSISTANT, VALERIE S 300.00 Anxiety State Unspecified 01/13/2009 SALLY CHILD WELFARE ASSISTANT, VALERIE S 401.9 UNSPECIFIED ESSENTIAL HYPERTENSION 01/13/2009 SALLY CHILD WELFARE ASSISTANT, VALERIE S 300.00 Anxiety State Unspecified 01/13/2009 SALLY CHILD WELFARE ASSISTANT, VALERIE S 401.9 UNSPECIFIED ESSENTIAL HYPERTENSION 01/13/2009 YATES DO, KARO K 300.00 Anxiety State Unspecified 01/13/2009 YATES DO, KARO K 401.9 UNSPECIFIED ESSENTIAL HYPERTENSION 01/13/2009 300.00 Anxiety State Unspecified 01/13/2009 401.9 UNSPECIFIED ESSENTIAL HYPERTENSION 01/13/2009 300.00 Anxiety State Unspecified 01/13/2009 401.9 UNSPECIFIED ESSENTIAL HYPERTENSION 01/13/2009 300.00 Anxiety State Unspecified 01/13/2009 401.9 UNSPECIFIED ESSENTIAL HYPERTENSION 01/13/2009 MICHELLE CAMARGO MD 300.00 Anxiety State Unspecified 01/13/2009 MICHELLE CAMARGO MD 401.9 UNSPECIFIED ESSENTIAL HYPERTENSION 01/13/2009 SALLY CHILD WELFARE ASSISTANT, VALERIE S 300.00 Anxiety State Unspecified 01/13/2009 SERINA ZAVALA APRNNDA S 401.9 UNSPECIFIED ESSENTIAL HYPERTENSION 01/13/2009 SALLY RIVERA VALERIE S 300.00 Anxiety State Unspecified 01/13/2009 SERINA ZAVALA APRNNDA S 401.9 UNSPECIFIED ESSENTIAL HYPERTENSION 01/13/2009 YATES DO, KARO K 300.00 Anxiety State Unspecified 01/13/2009 YATES DO, KARO K 401.9 UNSPECIFIED ESSENTIAL HYPERTENSION 01/13/2009 SALLY CHILD WELFARE ASSISTANT VALERIE S 300.00 Anxiety State Unspecified 01/13/2009 SALLY RIVERA VALERIE S 401.9 UNSPECIFIED ESSENTIAL HYPERTENSION 01/13/2009 YATES DO, KARO K 300.00 Anxiety State Unspecified 01/13/2009 YATES DO, KARO K 401.9 UNSPECIFIED ESSENTIAL HYPERTENSION 01/13/2009 SALLY RIVERA VALERIE S 300.00 Anxiety State Unspecified 01/13/2009 SALLY CHILD WELFARE ASSISTANT VALERIE S 401.9 UNSPECIFIED ESSENTIAL HYPERTENSION 01/13/2009 SALLY CHILD WELFARE ASSISTANT VALERIE S 300.00 Anxiety State Unspecified 01/13/2009 SALLY CHILD WELFARE ASSISTANT, VALERIE S 401.9 UNSPECIFIED ESSENTIAL HYPERTENSION 01/13/2009 SALLY CHILD WELFARE ASSISTANT VALERIE S 300.00 Anxiety State Unspecified 01/13/2009 SALLY CHILD WELFARE ASSISTANT, VALERIE S 401.9 UNSPECIFIED ESSENTIAL HYPERTENSION 01/13/2009 SALLY CHILD WELFARE ASSISTANT, VALERIE S 300.00 Anxiety State Unspecified 01/13/2009 SALLY CHILD WELFARE ASSISTANT, VALERIE S 401.9 UNSPECIFIED ESSENTIAL HYPERTENSION 01/13/2009 SALLY CHILD WELFARE ASSISTANT, VALERIE S 300.00 Anxiety State Unspecified 01/13/2009 SALLY CHILD WELFARE ASSISTANT, VALERIE S 401.9 UNSPECIFIED ESSENTIAL HYPERTENSION 01/13/2009 SALLY CHILD WELFARE ASSISTANT, VALERIE S 300.00 Anxiety State Unspecified 01/13/2009 SALLY CHILD WELFARE ASSISTANT, VALERIE S 401.9 UNSPECIFIED ESSENTIAL HYPERTENSION 01/13/2009 SALLY CHILD WELFARE ASSISTANT, VALERIE S 300.00 Anxiety State Unspecified 01/13/2009 SALLY CHILD WELFARE ASSISTANT, VALERIE S 401.9 UNSPECIFIED ESSENTIAL HYPERTENSION 01/13/2009 YATES DO, KARO K 300.00 Anxiety State Unspecified 01/13/2009 YATES DO, KARO K 401.9 UNSPECIFIED ESSENTIAL HYPERTENSION 01/13/2009 SALLY CHILD WELFARE ASSISTANT, VALERIE S 300.00 Anxiety State Unspecified 01/13/2009 SALLY CHILD WELFARE ASSISTANT, VALERIE S 401.9 UNSPECIFIED ESSENTIAL HYPERTENSION 01/13/2009 YATES DO, KARO K 300.00 Anxiety State Unspecified 01/13/2009 YATES DO, KARO K 401.9 UNSPECIFIED ESSENTIAL HYPERTENSION 01/13/2009 SALLY CHILD WELFARE ASSISTANT, VALERIE S 300.00 Anxiety State Unspecified 01/13/2009 SALLY CHILD WELFARE ASSISTANT, VALERIE S 401.9 UNSPECIFIED ESSENTIAL HYPERTENSION 01/13/2009 SALLY CHILD WELFARE ASSISTANT, VALERIE S 300.00 Anxiety State Unspecified 01/13/2009 SALLY CHILD WELFARE ASSISTANT, VALERIE S 401.9 UNSPECIFIED ESSENTIAL HYPERTENSION 01/13/2009 SALLY CHILD WELFARE ASSISTANT, VALERIE S 300.00 Anxiety State Unspecified 01/13/2009 SALLY CHILD WELFARE ASSISTANT, VALERIE S 401.9 UNSPECIFIED ESSENTIAL HYPERTENSION 01/13/2009 YAETS DO, KARO K 300.00 Anxiety State Unspecified 01/13/2009 YATES DO, KARO K 401.9 UNSPECIFIED ESSENTIAL HYPERTENSION 01/13/2009 SALLY CHILD WELFARE ASSISTANT, VALERIE S 300.00 Anxiety State Unspecified 01/13/2009 SALLY CHILD WELFARE ASSISTANT, VALERIE S 401.9 UNSPECIFIED ESSENTIAL HYPERTENSION 03/25/2009 YATES DO, KARO K 296.90 Episodic Mood Disorders 03/25/2009 YATES DO, KARO K 780.79 Feelings Of Weakness 03/25/2009 YATES DO, KARO K 787.91 Diarrhea 03/25/2009 YATES DO, KARO K 296.90 Episodic Mood Disorders 03/25/2009 YATES DO, KARO K 780.79 Feelings Of Weakness 03/25/2009 YATES DO, KARO K 787.91 Diarrhea 03/25/2009 ESPAÑA CHILD WELFARE ASSISTANT ZORAIDA R 296.90 Episodic Mood Disorders 03/25/2009 ESPAÑA CHILD WELFARE ASSISTANT ZORAIDA R 780.79 Feelings Of Weakness 03/25/2009 ESPAÑA CHILD WELFARE ASSISTANT ZORAIDA R 787.91 Diarrhea 03/25/2009 296.90 Episodic Mood Disorders 03/25/2009 780.79 Feelings Of Weakness 03/25/2009 787.91 Diarrhea 03/25/2009 SALLY RIVERA VALERIE S 296.90 Episodic Mood Disorders 03/25/2009 SERINA ZAVALA APRNNDA S 780.79 Feelings Of Weakness 03/25/2009 SERINA ZAVALA APRNNDA S 787.91 Diarrhea 03/25/2009 YATES DO, KARO K 296.90 Episodic Mood Disorders 03/25/2009 YATES DO, KARO K 780.79 Feelings Of Weakness 03/25/2009 YATES DO, KARO K 787.91 Diarrhea 03/25/2009 SALLY RIVERA VALERIE S 296.90 Episodic Mood Disorders 03/25/2009 SALLY RIVERA VALERIE S 780.79 Feelings Of Weakness 03/25/2009 SALLY RIVERA VALERIE S 787.91 Diarrhea 03/25/2009 SERINA ZAVALA APRNNDA S 296.90 Episodic Mood Disorders 03/25/2009 SALLY RIVERA VALERIE S 780.79 Feelings Of Weakness 03/25/2009 SALLY CHILD WELFARE ASSISTANT, VALERIE S 787.91 Diarrhea 03/25/2009 YATES DO, KARO K 296.90 Episodic Mood Disorders 03/25/2009 YATES DO, KARO K 780.79 Feelings Of Weakness 03/25/2009 YATES DO, KARO K 787.91 Diarrhea 03/25/2009 296.90 Episodic Mood Disorders 03/25/2009 780.79 Feelings Of Weakness 03/25/2009 787.91 Diarrhea 03/25/2009 296.90 Episodic Mood Disorders 03/25/2009 780.79 Feelings Of Weakness 03/25/2009 787.91 Diarrhea 03/25/2009 296.90 Episodic Mood Disorders 03/25/2009 780.79 Feelings Of Weakness 03/25/2009 787.91 Diarrhea 03/25/2009 MICHELLE CAMARGO MD 296.90 Episodic Mood Disorders 03/25/2009 MICHELLE CAMARGO MD 780.79 Feelings Of Weakness 03/25/2009 MICHELLE CAMARGO MD 787.91 Diarrhea 03/25/2009 SALLY RIVERA VALERIE S 296.90 Episodic Mood Disorders 03/25/2009 SALLY PERSAUDN, VALERIE S 780.79 Feelings Of Weakness 03/25/2009 SALLY PERSAUDN, VALERIE S 787.91 Diarrhea 03/25/2009 SALLY RIVERA VALERIE S 296.90 Episodic Mood Disorders 03/25/2009 SALLY PERSAUDN, VALERIE S 780.79 Feelings Of Weakness 03/25/2009 SALLY RIVERA, VALERIE S 787.91 Diarrhea 03/25/2009 YATES DO, KARO K 296.90 Episodic Mood Disorders 03/25/2009 YATES DO, KARO K 780.79 Feelings Of Weakness 03/25/2009 YATES DO, KARO K 787.91 Diarrhea 03/25/2009 SALLY PERSAUDN, VALERIE S 296.90 Episodic Mood Disorders 03/25/2009 SALLY PERSAUDN, VALERIE S 780.79 Feelings Of Weakness 03/25/2009 SALLY PERSAUDN, VALERIE S 787.91 Diarrhea 03/25/2009 YATES DO, KARO K 296.90 Episodic Mood Disorders 03/25/2009 YATES DO, KARO K 780.79 Feelings Of Weakness 03/25/2009 YATES DO, KARO K 787.91 Diarrhea 03/25/2009 SALLY CHILD WELFARE ASSISTANT, VALERIE S 296.90 Episodic Mood Disorders 03/25/2009 SALLY PERSAUDN, VALERIE S 780.79 Feelings Of Weakness 03/25/2009 SALLY CHILD WELFARE ASSISTANT VALERIE S 787.91 Diarrhea 03/25/2009 SALLY CHILD WELFARE ASSISTANT, VALERIE S 296.90 Episodic Mood Disorders 03/25/2009 SALLY RIVERA VALERIE S 780.79 Feelings Of Weakness 03/25/2009 SALLY RIVERA VALERIE S 787.91 Diarrhea 03/25/2009 SALLY RIVERA VALERIE S 296.90 Episodic Mood Disorders 03/25/2009 SERINA ZAVALA APRNNDA S 780.79 Feelings Of Weakness 03/25/2009 SALLY RIVERA VALERIE S 787.91 Diarrhea 03/25/2009 SALLY RIVERA VALERIE S 296.90 Episodic Mood Disorders 03/25/2009 SERINA ZAVALA APRNNDA S 780.79 Feelings Of Weakness 03/25/2009 SALLY RIVERA VALERIE S 787.91 Diarrhea 03/25/2009 SALLY RIVERA VALERIE S 296.90 Episodic Mood Disorders 03/25/2009 SERINA ZAVALA APRNNDA S 780.79 Feelings Of Weakness 03/25/2009 SALLY RIVERA VALERIE S 787.91 Diarrhea 03/25/2009 SALLY RIVERA VALERIE S 296.90 Episodic Mood Disorders 03/25/2009 SERINA ZAVALA APRNNDA S 780.79 Feelings Of Weakness 03/25/2009 SALLY RIVERA VALERIE S 787.91 Diarrhea 03/25/2009 SALLY RIVERA VALERIE S 296.90 Episodic Mood Disorders 03/25/2009 SERINA ZAVALA APRNNDA S 780.79 Feelings Of Weakness 03/25/2009 SALLY RIVERA VALERIE S 787.91 Diarrhea 03/25/2009 YATES DO, KARO K 296.90 Episodic Mood Disorders 03/25/2009 YATES DO, KARO K 780.79 Feelings Of Weakness 03/25/2009 YATES DO, KARO K 787.91 Diarrhea 03/25/2009 SALLY RIVERA VALERIE S 296.90 Episodic Mood Disorders 03/25/2009 SALLY RIVERA VALERIE S 780.79 Feelings Of Weakness 03/25/2009 SALLY RIVERA VALERIE S 787.91 Diarrhea 03/25/2009 YATES DO, KARO K 296.90 Episodic Mood Disorders 03/25/2009 YATES DO, KARO K 780.79 Feelings Of Weakness 03/25/2009 YATES DO, KARO K 787.91 Diarrhea 03/25/2009 SALLY RIVERA VALERIE S 296.90 Episodic Mood Disorders 03/25/2009 SERINA ZAVALA APRNNDA S 780.79 Feelings Of Weakness 03/25/2009 SERINA ZAVALA APRNNDA S 787.91 Diarrhea 03/25/2009 SERINA ZAVALA APRNNDA S 296.90 Episodic Mood Disorders 03/25/2009 SERINA ZAVALA APRNNDA S 780.79 Feelings Of Weakness 03/25/2009 SALLY RIVERA VALERIE S 787.91 Diarrhea 03/25/2009 SERINA ZAVALA APRNNDA S 296.90 Episodic Mood Disorders 03/25/2009 SALLY PERSAUDNSERINAVALERIE S 780.79 Feelings Of Weakness 03/25/2009 SERINA ZAVALA APRNNDA S 787.91 Diarrhea 03/25/2009 YATES DO, KARO K 296.90 Episodic Mood Disorders 03/25/2009 YATES DO, KARO K 780.79 Feelings Of Weakness 03/25/2009 YATES DO, KARO K 787.91 Diarrhea 03/25/2009 SALLY RIVERA VALERIE S 296.90 Episodic Mood Disorders 03/25/2009 SERINA ZAVALA APRNNDA S 780.79 Feelings Of Weakness 03/25/2009 SALLY RIVERA VALERIE S 787.91 Diarrhea 10/20/2009 YATES DO, KARO K 599.71 Gross Hematuria 10/20/2009 YATES DO, KARO K 599.71 Gross Hematuria 10/20/2009 ZORAIDA ESPAÑA APRN 599.71 Gross Hematuria 10/20/2009 599.71 Gross Hematuria 10/20/2009 SERINA ZAVALA APRNNDA S 599.71 Gross Hematuria 10/20/2009 YATES DO, KARO K 599.71 Gross Hematuria 10/20/2009 SERINA ZAVALA APRNNDA S 599.71 Gross Hematuria 10/20/2009 SERINA ZAVALA APRNNDA S 599.71 Gross Hematuria 10/20/2009 YATES DO, KARO K 599.71 Gross Hematuria 10/20/2009 599.71 Gross Hematuria 10/20/2009 599.71 Gross Hematuria 10/20/2009 599.71 Gross Hematuria 10/20/2009 MARY JO ABRAMS, MICHELLE 599.71 Gross Hematuria 10/20/2009 SALLY CHILD WELFARE ASSISTANT, VALERIE S 599.71 Gross Hematuria 10/20/2009 SALLY CHILD WELFARE ASSISTANT, VALERIE S 599.71 Gross Hematuria 10/20/2009 YATES DO, KARO K 599.71 Gross Hematuria 10/20/2009 SALLY CHILD WELFARE ASSISTANT, VALERIE S 599.71 Gross Hematuria 10/20/2009 YATES DO, KARO K 599.71 Gross Hematuria 10/20/2009 SALLY CHILD WELFARE ASSISTANT, VALERIE S 599.71 Gross Hematuria 10/20/2009 SALLY CHILD WELFARE ASSISTANT, VALERIE S 599.71 Gross Hematuria 10/20/2009 SALLY CHILD WELFARE ASSISTANT, VALERIE S 599.71 Gross Hematuria 10/20/2009 SALLY CHILD WELFARE ASSISTANT, VALERIE S 599.71 Gross Hematuria 10/20/2009 SALLY CHILD WELFARE ASSISTANT, VALERIE S 599.71 Gross Hematuria 10/20/2009 SALLY CHILD WELFARE ASSISTANT, VALERIE S 599.71 Gross Hematuria 10/20/2009 SALLY CHILD WELFARE ASSISTANT, VALERIE S 599.71 Gross Hematuria 10/20/2009 YATES DO, KARO K 599.71 Gross Hematuria 10/20/2009 SALLY CHILD WELFARE ASSISTANT, VALERIE S 599.71 Gross Hematuria 10/20/2009 YATES DO, KARO K 599.71 Gross Hematuria 10/20/2009 SALLY CHILD WELFARE ASSISTANT, VALERIE S 599.71 Gross Hematuria 10/20/2009 SALLY CHILD WELFARE ASSISTANT, VALERIE S 599.71 Gross Hematuria 10/20/2009 SALLY CHILD WELFARE ASSISTANT, VALERIE S 599.71 Gross Hematuria 10/20/2009 YATES DO, KARO K 599.71 Gross Hematuria 10/20/2009 SALLY CHILD WELFARE ASSISTANT, VALERIE S 599.71 Gross Hematuria 10/27/2009 YATES DO, KARO K 305.1 TOBACCO ABUSE 10/27/2009 YATES DO, KARO K 307.40 Insomnia 10/27/2009 YATES DO, KARO K 536.8 Dyspepsia And Other Specified Disorders Of Function Of Stomach 10/27/2009 YATES DO, KARO K 788.41 Urinary Frequency 10/27/2009 YATES DO, KARO K 305.1 TOBACCO ABUSE 10/27/2009 YATES DO, KARO K 307.40 Insomnia 10/27/2009 YATES DO, KARO K 536.8 Dyspepsia And Other Specified Disorders Of Function Of Stomach 10/27/2009 YATES DO, KARO K 788.41 Urinary Frequency 10/27/2009 ESPAÑA CHILD WELFARE ASSISTANT, ZORAIDA R 305.1 NICOTINE DEPENDENCE 10/27/2009 ESPAÑA CHILD WELFARE ASSISTANT, ZORAIDA R 307.40 Insomnia 10/27/2009 ESPAÑA CHILD WELFARE ASSISTANT, ZORAIDA R 536.8 Dyspepsia And Other Specified Disorders Of Function Of Stomach 10/27/2009 ESPAÑA CHILD WELFARE ASSISTANT, ZORAIDA R 788.41 Urinary Frequency 10/27/2009 305.1 NICOTINE DEPENDENCE 10/27/2009 307.40 Insomnia 10/27/2009 536.8 Dyspepsia And Other Specified Disorders Of Function Of Stomach 10/27/2009 788.41 Urinary Frequency 10/27/2009 SALLY CHILD WELFARE ASSISTANT, VALERIE S 305.1 NICOTINE DEPENDENCE 10/27/2009 SALLY CHILD WELFARE ASSISTANT, VALERIE S 307.40 Insomnia 10/27/2009 SALLY CHILD WELFARE ASSISTANT, VALERIE S 536.8 Dyspepsia And Other Specified Disorders Of Function Of Stomach 10/27/2009 SALLY CHILD WELFARE ASSISTANT, VALERIE S 788.41 Urinary Frequency 10/27/2009 YATES DO, KARO K 305.1 NICOTINE DEPENDENCE 10/27/2009 YATES DO, KARO K 307.40 Insomnia 10/27/2009 YATES DO, KARO K 536.8 Dyspepsia And Other Specified Disorders Of Function Of Stomach 10/27/2009 YATES DO, KARO K 788.41 Urinary Frequency 10/27/2009 SALLY CHILD WELFARE ASSISTANT, VALERIE S 305.1 NICOTINE DEPENDENCE 10/27/2009 SALLY CHILD WELFARE ASSISTANT, VALERIE S 307.40 Insomnia 10/27/2009 SALLY CHILD WELFARE ASSISTANT, VALERIE S 536.8 Dyspepsia And Other Specified Disorders Of Function Of Stomach 10/27/2009 SALLY CHILD WELFARE ASSISTANT, VALERIE S 788.41 Urinary Frequency 10/27/2009 SALLY CHILD WELFARE ASSISTANT, VALERIE S 305.1 NICOTINE DEPENDENCE 10/27/2009 SALLY CHILD WELFARE ASSISTANT, VALERIE S 307.40 Insomnia 10/27/2009 SALLY CHILD WELFARE ASSISTANT, VALERIE S 536.8 Dyspepsia And Other Specified Disorders Of Function Of Stomach 10/27/2009 SALLY CHILD WELFARE ASSISTANT, VALERIE S 788.41 Urinary Frequency 10/27/2009 YATES DO, KARO K 305.1 NICOTINE DEPENDENCE 10/27/2009 YATES DO, KARO K 307.40 Insomnia 10/27/2009 YATES DO, KARO K 536.8 Dyspepsia And Other Specified Disorders Of Function Of Stomach 10/27/2009 YATES DO, KARO K 788.41 Urinary Frequency 10/27/2009 305.1 NICOTINE DEPENDENCE 10/27/2009 307.40 Insomnia 10/27/2009 536.8 Dyspepsia And Other Specified Disorders Of Function Of Stomach 10/27/2009 788.41 Urinary Frequency 10/27/2009 305.1 NICOTINE DEPENDENCE 10/27/2009 307.40 Insomnia 10/27/2009 536.8 Dyspepsia And Other Specified Disorders Of Function Of Stomach 10/27/2009 788.41 Urinary Frequency 10/27/2009 305.1 NICOTINE DEPENDENCE 10/27/2009 307.40 Insomnia 10/27/2009 536.8 Dyspepsia And Other Specified Disorders Of Function Of Stomach 10/27/2009 788.41 Urinary Frequency 10/27/2009 MICHELLE CAMARGO MD 305.1 NICOTINE DEPENDENCE 10/27/2009 MICHELLE CAMARGO MD 307.40 Insomnia 10/27/2009 MICHELLE CAMARGO MD 536.8 Dyspepsia And Other Specified Disorders Of Function Of Stomach 10/27/2009 MICHELLE CAMARGO MD 788.41 Urinary Frequency 10/27/2009 SALLY CHILD WELFARE ASSISTANT, VALERIE S 305.1 NICOTINE DEPENDENCE 10/27/2009 SALLY PERSAUDN, VALERIE S 307.40 Insomnia 10/27/2009 SALLY CHILD WELFARE ASSISTANT, VALERIE S 536.8 Dyspepsia And Other Specified Disorders Of Function Of Stomach 10/27/2009 SALLY CHILD WELFARE ASSISTANT, VALERIE S 788.41 Urinary Frequency 10/27/2009 SALLY CHILD WELFARE ASSISTANT, VALERIE S 305.1 NICOTINE DEPENDENCE 10/27/2009 SALLY CHILD WELFARE ASSISTANT, VALERIE S 307.40 Insomnia 10/27/2009 SALLY CHILD WELFARE ASSISTANT, VALERIE S 536.8 Dyspepsia And Other Specified Disorders Of Function Of Stomach 10/27/2009 SALLY CHILD WELFARE ASSISTANT, VALERIE S 788.41 Urinary Frequency 10/27/2009 YATES DO, KARO K 305.1 NICOTINE DEPENDENCE 10/27/2009 YATES DO, KARO K 307.40 Insomnia 10/27/2009 YATES DO, KARO K 536.8 Dyspepsia And Other Specified Disorders Of Function Of Stomach 10/27/2009 YATES DO, KAOR K 788.41 Urinary Frequency 10/27/2009 SALLY CHILD WELFARE ASSISTANT, VALERIE S 305.1 NICOTINE DEPENDENCE 10/27/2009 SALLY CHILD WELFARE ASSISTANT, VALERIE S 307.40 Insomnia 10/27/2009 SALLY CHILD WELFARE ASSISTANT, VALERIE S 536.8 Dyspepsia And Other Specified Disorders Of Function Of Stomach 10/27/2009 SALLY CHILD WELFARE ASSISTANT, VALERIE S 788.41 Urinary Frequency 10/27/2009 YATES DO, KARO K 305.1 NICOTINE DEPENDENCE 10/27/2009 YATES DO, KARO K 307.40 Insomnia 10/27/2009 YATES DO, KARO K 536.8 Dyspepsia And Other Specified Disorders Of Function Of Stomach 10/27/2009 YATES DO, KARO K 788.41 Urinary Frequency 10/27/2009 SALLY CHILD WELFARE ASSISTANT, VALERIE S 305.1 NICOTINE DEPENDENCE 10/27/2009 SALLY CHILD WELFARE ASSISTANT, VALERIE S 307.40 Insomnia 10/27/2009 SALLY CHILD WELFARE ASSISTANT, VALERIE S 536.8 Dyspepsia And Other Specified Disorders Of Function Of Stomach 10/27/2009 SALLY CHILD WELFARE ASSISTANT, VALERIE S 788.41 Urinary Frequency 10/27/2009 SALLY CHILD WELFARE ASSISTANT, VALERIE S 305.1 NICOTINE DEPENDENCE 10/27/2009 SALLY CHILD WELFARE ASSISTANT, VALERIE S 307.40 Insomnia 10/27/2009 SALLY CHILD WELFARE ASSISTANT, VALERIE S 536.8 Dyspepsia And Other Specified Disorders Of Function Of Stomach 10/27/2009 SALLY CHILD WELFARE ASSISTANT, VALERIE S 788.41 Urinary Frequency 10/27/2009 SALLY CHILD WELFARE ASSISTANT, VALERIE S 305.1 NICOTINE DEPENDENCE 10/27/2009 SALLY CHILD WELFARE ASSISTANT, VALERIE S 307.40 Insomnia 10/27/2009 SALLY CHILD WELFARE ASSISTANT, VALERIE S 536.8 Dyspepsia And Other Specified Disorders Of Function Of Stomach 10/27/2009 SALLY CHILD WELFARE ASSISTANT, VALERIE S 788.41 Urinary Frequency 10/27/2009 SALLY CHILD WELFARE ASSISTANT, VALERIE S 305.1 NICOTINE DEPENDENCE 10/27/2009 SALLY CHILD WELFARE ASSISTANT, VALERIE S 307.40 Insomnia 10/27/2009 SALLY CHILD WELFARE ASSISTANT, VALERIE S 536.8 Dyspepsia And Other Specified Disorders Of Function Of Stomach 10/27/2009 SALLY CHILD WELFARE ASSISTANT, VALERIE S 788.41 Urinary Frequency 10/27/2009 SALLY CHILD WELFARE ASSISTANT, VALERIE S 305.1 NICOTINE DEPENDENCE 10/27/2009 SALLY CHILD WELFARE ASSISTANT, VALERIE S 307.40 Insomnia 10/27/2009 SALLY CHILD WELFARE ASSISTANT, VALERIE S 536.8 Dyspepsia And Other Specified Disorders Of Function Of Stomach 10/27/2009 SALLY CHILD WELFARE ASSISTANT, VALERIE S 788.41 Urinary Frequency 10/27/2009 SALLY CHILD WELFARE ASSISTANT, VALERIE S 305.1 NICOTINE DEPENDENCE 10/27/2009 SALLY CHILD WELFARE ASSISTANT, VALERIE S 307.40 Insomnia 10/27/2009 SALLY CHILD WELFARE ASSISTANT, VALERIE S 536.8 Dyspepsia And Other Specified Disorders Of Function Of Stomach 10/27/2009 SALLY CHILD WELFARE ASSISTANT, VALERIE S 788.41 Urinary Frequency 10/27/2009 SALLY CHILD WELFARE ASSISTANT, VALERIE S 305.1 NICOTINE DEPENDENCE 10/27/2009 SALLY CHILD WELFARE ASSISTANT, VALERIE S 307.40 Insomnia 10/27/2009 SALLY CHILD WELFARE ASSISTANT, VALERIE S 536.8 Dyspepsia And Other Specified Disorders Of Function Of Stomach 10/27/2009 SALLY CHILD WELFARE ASSISTANT, VALERIE S 788.41 Urinary Frequency 10/27/2009 YATES DO, KARO K 305.1 NICOTINE DEPENDENCE 10/27/2009 YATES DO, KARO K 307.40 Insomnia 10/27/2009 YATES DO, KARO K 536.8 Dyspepsia And Other Specified Disorders Of Function Of Stomach 10/27/2009 YATES DO, KARO K 788.41 Urinary Frequency 10/27/2009 SALLY CHILD WELFARE ASSISTANT, VALERIE S 305.1 NICOTINE DEPENDENCE 10/27/2009 SALLY CHILD WELFARE ASSISTANT, VALERIE S 307.40 Insomnia 10/27/2009 SALLY CHILD WELFARE ASSISTANT, VALERIE S 536.8 Dyspepsia And Other Specified Disorders Of Function Of Stomach 10/27/2009 SALLY CHILD WELFARE ASSISTANT, VALERIE S 788.41 Urinary Frequency 10/27/2009 YATES DO, KARO K 305.1 NICOTINE DEPENDENCE 10/27/2009 YATES DO, KARO K 307.40 Insomnia 10/27/2009 YATES DO, KARO K 536.8 Dyspepsia And Other Specified Disorders Of Function Of Stomach 10/27/2009 YATES DO, KARO K 788.41 Urinary Frequency 10/27/2009 SALLY CHILD WELFARE ASSISTANT, VALERIE S 305.1 NICOTINE DEPENDENCE 10/27/2009 SALLY CHILD WELFARE ASSISTANT, VALERIE S 307.40 Insomnia 10/27/2009 SALLY CHILD WELFARE ASSISTANT, VALERIE S 536.8 Dyspepsia And Other Specified Disorders Of Function Of Stomach 10/27/2009 SALLY CHILD WELFARE ASSISTANT, VALERIE S 788.41 Urinary Frequency 10/27/2009 SALLY CHILD WELFARE ASSISTANT, VALERIE S 305.1 NICOTINE DEPENDENCE 10/27/2009 SALLY CHILD WELFARE ASSISTANT, VALERIE S 307.40 Insomnia 10/27/2009 SALLY CHILD WELFARE ASSISTANT, VALERIE S 536.8 Dyspepsia And Other Specified Disorders Of Function Of Stomach 10/27/2009 SALLY CHILD WELFARE ASSISTANT, VALERIE S 788.41 Urinary Frequency 10/27/2009 SALLY CHILD WELFARE ASSISTANT, VALERIE S 305.1 NICOTINE DEPENDENCE 10/27/2009 SALLY CHILD WELFARE ASSISTANT, VALERIE S 307.40 Insomnia 10/27/2009 SALLY CHILD WELFARE ASSISTANT, VALERIE S 536.8 Dyspepsia And Other Specified Disorders Of Function Of Stomach 10/27/2009 SALLY CHILD WELFARE ASSISTANT, VALERIE S 788.41 Urinary Frequency 10/27/2009 YATES DO, KARO K 305.1 NICOTINE DEPENDENCE 10/27/2009 YATES DO, KARO K 307.40 Insomnia 10/27/2009 YATES DO, KARO K 536.8 Dyspepsia And Other Specified Disorders Of Function Of Stomach 10/27/2009 YATES DO, KARO K 788.41 Urinary Frequency 10/27/2009 SALLY CHILD WELFARE ASSISTANT, VALERIE S 305.1 NICOTINE DEPENDENCE 10/27/2009 SALLY CHILD WELFARE ASSISTANT, VALERIE S 307.40 Insomnia 10/27/2009 SALLY CHILD WELFARE ASSISTANT, VALERIE S 536.8 Dyspepsia And Other Specified Disorders Of Function Of Stomach 10/27/2009 SALLY CHILD WELFARE ASSISTANT, VALERIE S 788.41 Urinary Frequency 12/03/2009 YATES DO, KARO K 564.00 Constipation 12/03/2009 YATES DO, KARO K 564.00 Constipation 12/03/2009 ZORAIDA ESPAÑA APRN R 564.00 Constipation 12/03/2009 564.00 Constipation 12/03/2009 SALLY CHILD WELFARE ASSISTANT, VALERIE S 564.00 Constipation 12/03/2009 YATES DO, KARO K 564.00 Constipation 12/03/2009 SALLY CHILD WELFARE ASSISTANT, VALERIE S 564.00 Constipation 12/03/2009 SALLY CHILD WELFARE ASSISTANT, VALERIE S 564.00 Constipation 12/03/2009 YATES DO, KARO K 564.00 Constipation 12/03/2009 564.00 Constipation 12/03/2009 564.00 Constipation 12/03/2009 564.00 Constipation 12/03/2009 MARY JO ABRAMS, MICHELLE 564.00 Constipation 12/03/2009 SALLY CHILD WELFARE ASSISTANT, VALERIE S 564.00 Constipation 12/03/2009 SALLY CHILD WELFARE ASSISTANT, VALERIE S 564.00 Constipation 12/03/2009 YATES DO, KARO K 564.00 Constipation 12/03/2009 SALLY CHILD WELFARE ASSISTANT, VALERIE S 564.00 Constipation 12/03/2009 YATES DO, KARO K 564.00 Constipation 12/03/2009 SALLY CHILD WELFARE ASSISTANT, VALERIE S 564.00 Constipation 12/03/2009 SALLY CHILD WELFARE ASSISTANT, VALERIE S 564.00 Constipation 12/03/2009 SALLY CHILD WELFARE ASSISTANT, VALERIE S 564.00 Constipation 12/03/2009 SALLY CHILD WELFARE ASSISTANT, VALERIE S 564.00 Constipation 12/03/2009 SALLY CHILD WELFARE ASSISTANT, VALERIE S 564.00 Constipation 12/03/2009 SALLY CHILD WELFARE ASSISTANT, VALERIE S 564.00 Constipation 12/03/2009 SALLY CHILD WELFARE ASSISTANT, VALERIE S 564.00 Constipation 12/03/2009 YATES DO, KARO K 564.00 Constipation 12/03/2009 SALLY CHILD WELFARE ASSISTANT, VALERIE S 564.00 Constipation 12/03/2009 YATES DO, KARO K 564.00 Constipation 12/03/2009 SALLY CHILD WELFARE ASSISTANT, VALERIE S 564.00 Constipation 12/03/2009 SALLY CHILD WELFARE ASSISTANT, VALERIE S 564.00 Constipation 12/03/2009 SALLY CHILD WELFARE ASSISTANT, VALERIE S 564.00 Constipation 12/03/2009 YATES DO, KARO K 564.00 Constipation 12/03/2009 SALLY CHILD WELFARE ASSISTANT, VALERIE S 564.00 Constipation 02/22/2010 Ot 530.81 02/22/2010 Ot 789.09 02/22/2010 Ot V12.72 05/11/2010 YATES DO, KARO K 724.5 Back Pain, General 05/11/2010 YATES DO, KARO K 724.5 Back Pain, General 05/11/2010 ZORAIDA ESPAÑA APRN 724.5 Back Pain, General 05/11/2010 724.5 Back Pain, General 05/11/2010 SALLY CHILD WELFARE ASSISTANT VALERIE S 724.5 Back Pain, General 05/11/2010 YATES DO KARO K 724.5 Back Pain, General 05/11/2010 SALLY CHILD WELFARE ASSISTANT, VALERIE S 724.5 Back Pain, General 05/11/2010 SALLY CHILD WELFARE ASSISTANT, VALERIE S 724.5 Back Pain, General 05/11/2010 YATES DO KARO K 724.5 Back Pain, General 05/11/2010 724.5 Back Pain, General 05/11/2010 724.5 Back Pain, General 05/11/2010 724.5 Back Pain, General 05/11/2010 MARY JO ABRAMS, MICHELLE 724.5 Back Pain, General 05/11/2010 SALLY CHILD WELFARE ASSISTANT, VALERIE S 724.5 Back Pain, General 05/11/2010 SALLY CHILD WELFARE ASSISTANT, VALERIE S 724.5 Back Pain, General 05/11/2010 YATES DO KARO K 724.5 Back Pain, General 05/11/2010 SALLY CHILD WELFARE ASSISTANT, VALERIE S 724.5 Back Pain, General 05/11/2010 YATES DO, KARO K 724.5 Back Pain, General 05/11/2010 SALLY CHILD WELFARE ASSISTANT, VALERIE S 724.5 Back Pain, General 05/11/2010 SALLY CHILD WELFARE ASSISTANT, VALERIE S 724.5 Back Pain, General 05/11/2010 SALLY CHILD WELFARE ASSISTANT, VALERIE S 724.5 Back Pain, General 05/11/2010 SALLY CHILD WELFARE ASSISTANT, VALERIE S 724.5 Back Pain, General 05/11/2010 SALLY CHILD WELFARE ASSISTANT, VALERIE S 724.5 Back Pain, General 05/11/2010 SALLY CHILD WELFARE ASSISTANT, VALERIE S 724.5 Back Pain, General 05/11/2010 SALLY CHILD WELFARE ASSISTANT, VALERIE S 724.5 Back Pain, General 05/11/2010 YATES DO, KARO K 724.5 Back Pain, General 05/11/2010 SALLY CHILD WELFARE ASSISTANT, VALERIE S 724.5 Back Pain, General 05/11/2010 YATES DO, KARO K 724.5 Back Pain, General 05/11/2010 SALLY CHILD WELFARE ASSISTANT, VALERIE S 724.5 Back Pain, General 05/11/2010 SALLY CHILD WELFARE ASSISTANT, VALERIE S 724.5 Back Pain, General 05/11/2010 SALLY CHILD WELFARE ASSISTANT, VALERIE S 724.5 Back Pain, General 05/11/2010 YATES DO, KARO K 724.5 Back Pain, General 05/11/2010 SALLY CHILD WELFARE ASSISTANT, VALERIE S 724.5 Back Pain, General 05/21/2010 YATES DO KARO K 627.9 Menopausal And Postmenopausal Disorder Unspecified 05/21/2010 YATES DO KARO K 722.10 Displacement Of Lumbar Intervertebral Disc Without Myelopathy 05/21/2010 YATES DO KARO K V72.31 Pie Cutter Exam, Routine 05/21/2010 YATES DO KARO K 627.9 Menopausal And Postmenopausal Disorder Unspecified 05/21/2010 YATES DO, KARO K 722.10 Displacement Of Lumbar Intervertebral Disc Without Myelopathy 05/21/2010 YATES DO KARO K V72.31 Pie Cutter Exam, Routine 05/21/2010 ZORAIDA ESPAÑA APRN R 627.9 Menopausal And Postmenopausal Disorder Unspecified 05/21/2010 ALEXY ESPAÑA APRNIA R 722.10 Displacement Of Lumbar Intervertebral Disc Without Myelopathy 05/21/2010 ZORAIDA ESPAÑA APRN R V72.31 Pie Cutter Exam, Routine 05/21/2010 627.9 Menopausal And Postmenopausal Disorder Unspecified 05/21/2010 722.10 Displacement Of Lumbar Intervertebral Disc Without Myelopathy 05/21/2010 V72.31 Pie Cutter Exam, Routine 05/21/2010 SALLY CHILD WELFARE ASSISTANT VALERIE S 627.9 Menopausal And Postmenopausal Disorder Unspecified 05/21/2010 SALLY CHILD WELFARE ASSISTANT, VALERIE S 722.10 Displacement Of Lumbar Intervertebral Disc Without Myelopathy 05/21/2010 SALLY CHILD WELFARE ASSISTANT, VALERIE S V72.31 Pie Cutter Exam, Routine 05/21/2010 YATES DO KARO K 627.9 Menopausal And Postmenopausal Disorder Unspecified 05/21/2010 YATES DO KARO K 722.10 Displacement Of Lumbar Intervertebral Disc Without Myelopathy 05/21/2010 YATES DO KARO K V72.31 Pie Cutter Exam, Routine 05/21/2010 SALLY CHILD WELFARE ASSISTANT, VALERIE S 627.9 Menopausal And Postmenopausal Disorder Unspecified 05/21/2010 SALLY CHILD WELFARE ASSISTANT, VALERIE S 722.10 Displacement Of Lumbar Intervertebral Disc Without Myelopathy 05/21/2010 SALLY CHILD WELFARE ASSISTANT, VALERIE S V72.31 Pie Cutter Exam, Routine 05/21/2010 SALLY CHILD WELFARE ASSISTANT VALERIE S 627.9 Menopausal And Postmenopausal Disorder Unspecified 05/21/2010 SALLY CHILD WELFARE ASSISTANT, VALERIE S 722.10 Displacement Of Lumbar Intervertebral Disc Without Myelopathy 05/21/2010 SALLY CHILD WELFARE ASSISTANT, VALERIE S V72.31 Pie Cutter Exam, Routine 05/21/2010 YATES DO KARO K 627.9 Menopausal And Postmenopausal Disorder Unspecified 05/21/2010 YATES DO KARO K 722.10 Displacement Of Lumbar Intervertebral Disc Without Myelopathy 05/21/2010 YATES DO KARO K V72.31 Pie Cutter Exam, Routine 05/21/2010 627.9 Menopausal And Postmenopausal Disorder Unspecified 05/21/2010 722.10 Displacement Of Lumbar Intervertebral Disc Without Myelopathy 05/21/2010 V72.31 Pie Cutter Exam, Routine 05/21/2010 627.9 Menopausal And Postmenopausal Disorder Unspecified 05/21/2010 722.10 Displacement Of Lumbar Intervertebral Disc Without Myelopathy 05/21/2010 V72.31 Pie Cutter Exam, Routine 05/21/2010 627.9 Menopausal And Postmenopausal Disorder Unspecified 05/21/2010 722.10 Displacement Of Lumbar Intervertebral Disc Without Myelopathy 05/21/2010 V72.31 Pie Cutter Exam, Routine 05/21/2010 MICHELLE CAMARGO MD 627.9 Menopausal And Postmenopausal Disorder Unspecified 05/21/2010 MICHELLE CAMARGO MD 722.10 Displacement Of Lumbar Intervertebral Disc Without Myelopathy 05/21/2010 MICHELLE CAMARGO MD V72.31 Pie Cutter Exam, Routine 05/21/2010 SALLY CHILD WELFARE ASSISTANT, VALERIE S 627.9 Menopausal And Postmenopausal Disorder Unspecified 05/21/2010 SALLY CHILD WELFARE ASSISTANT, VALERIE S 722.10 Displacement Of Lumbar Intervertebral Disc Without Myelopathy 05/21/2010 SALLY CHILD WELFARE ASSISTANT, VALERIE S V72.31 Pie Cutter Exam, Routine 05/21/2010 SALLY CHILD WELFARE ASSISTANT, VALERIE S 627.9 Menopausal And Postmenopausal Disorder Unspecified 05/21/2010 SALLY CHILD WELFARE ASSISTANT, VALERIE S 722.10 Displacement Of Lumbar Intervertebral Disc Without Myelopathy 05/21/2010 SALLY CHILD WELFARE ASSISTANT, VALERIE S V72.31 Pie Cutter Exam, Routine 05/21/2010 YATES DO, KARO K 627.9 Menopausal And Postmenopausal Disorder Unspecified 05/21/2010 YATES DO, KARO K 722.10 Displacement Of Lumbar Intervertebral Disc Without Myelopathy 05/21/2010 YATES DO, KARO K V72.31 Pie Cutter Exam, Routine 05/21/2010 SALLY CHILD WELFARE ASSISTANT, VALERIE S 627.9 Menopausal And Postmenopausal Disorder Unspecified 05/21/2010 SALLY CHILD WELFARE ASSISTANT, VALERIE S 722.10 Displacement Of Lumbar Intervertebral Disc Without Myelopathy 05/21/2010 SALLY CHILD WELFARE ASSISTANT, VALERIE S V72.31 Pie Cutter Exam, Routine 05/21/2010 YATES DO, KARO K 627.9 Menopausal And Postmenopausal Disorder Unspecified 05/21/2010 YATES DO, KARO K 722.10 Displacement Of Lumbar Intervertebral Disc Without Myelopathy 05/21/2010 YATES DO, KARO K V72.31 Pie Cutter Exam, Routine 05/21/2010 SALLY CHILD WELFARE ASSISTANT, VALERIE S 627.9 Menopausal And Postmenopausal Disorder Unspecified 05/21/2010 ASLLY CHILD WELFARE ASSISTANT, VALERIE S 722.10 Displacement Of Lumbar Intervertebral Disc Without Myelopathy 05/21/2010 SALLY CHILD WELFARE ASSISTANT, VALERIE S V72.31 Pie Cutter Exam, Routine 05/21/2010 SALLY CHILD WELFARE ASSISTANT, VALERIE S 627.9 Menopausal And Postmenopausal Disorder Unspecified 05/21/2010 SALLY CHILD WELFARE ASSISTANT, VALERIE S 722.10 Displacement Of Lumbar Intervertebral Disc Without Myelopathy 05/21/2010 SALLY CHILD WELFARE ASSISTANT, VALERIE S V72.31 Pie Cutter Exam, Routine 05/21/2010 SALLY CHILD WELFARE ASSISTANT, VALERIE S 627.9 Menopausal And Postmenopausal Disorder Unspecified 05/21/2010 SALLY CHILD WELFARE ASSISTANT, VALERIE S 722.10 Displacement Of Lumbar Intervertebral Disc Without Myelopathy 05/21/2010 SALLY CHILD WELFARE ASSISTANT, VALERIE S V72.31 Pie Cutter Exam, Routine 05/21/2010 SALLY CHILD WELFARE ASSISTANT, VALERIE S 627.9 Menopausal And Postmenopausal Disorder Unspecified 05/21/2010 SALLY CHILD WELFARE ASSISTANT, VALERIE S 722.10 Displacement Of Lumbar Intervertebral Disc Without Myelopathy 05/21/2010 SALLY CHILD WELFARE ASSISTANT, VALERIE S V72.31 Pie Cutter Exam, Routine 05/21/2010 SALLY CHILD WELFARE ASSISTANT, VALERIE S 627.9 Menopausal And Postmenopausal Disorder Unspecified 05/21/2010 SALLY CHILD WELFARE ASSISTANT, VALERIE S 722.10 Displacement Of Lumbar Intervertebral Disc Without Myelopathy 05/21/2010 SALLY CHILD WELFARE ASSISTANT, VALERIE S V72.31 Pie Cutter Exam, Routine 05/21/2010 SALLY CHILD WELFARE ASSISTANT, VALERIE S 627.9 Menopausal And Postmenopausal Disorder Unspecified 05/21/2010 SALLY CHILD WELFARE ASSISTANT, VALERIE S 722.10 Displacement Of Lumbar Intervertebral Disc Without Myelopathy 05/21/2010 SALLY CHILD WELFARE ASSISTANT, VALERIE S V72.31 Pie Cutter Exam, Routine 05/21/2010 SALLY CHILD WELFARE ASSISTANT, VALERIE S 627.9 Menopausal And Postmenopausal Disorder Unspecified 05/21/2010 SALLY CHILD WELFARE ASSISTANT, VALERIE S 722.10 Displacement Of Lumbar Intervertebral Disc Without Myelopathy 05/21/2010 SALLY CHILD WELFARE ASSISTANT, VALERIE S V72.31 Pie Cutter Exam, Routine 05/21/2010 YATES DOKARO K 627.9 Menopausal And Postmenopausal Disorder Unspecified 05/21/2010 YATES DO, KARO K 722.10 Displacement Of Lumbar Intervertebral Disc Without Myelopathy 05/21/2010 YATES DO, KARO K V72.31 Pie Cutter Exam, Routine 05/21/2010 SALLY CHILD WELFARE ASSISTANT, VALERIE S 627.9 Menopausal And Postmenopausal Disorder Unspecified 05/21/2010 SALLY CHILD WELFARE ASSISTANT, VALERIE S 722.10 Displacement Of Lumbar Intervertebral Disc Without Myelopathy 05/21/2010 SALLY CHILD WELFARE ASSISTANT, VALERIE S V72.31 Pie Cutter Exam, Routine 05/21/2010 YATES DO, KARO K 627.9 Menopausal And Postmenopausal Disorder Unspecified 05/21/2010 YATES DO, KARO K 722.10 Displacement Of Lumbar Intervertebral Disc Without Myelopathy 05/21/2010 YATES DO, KARO K V72.31 Pie Cutter Exam, Routine 05/21/2010 SALLY CHILD WELFARE ASSISTANT, VALERIE S 627.9 Menopausal And Postmenopausal Disorder Unspecified 05/21/2010 SALLY CHILD WELFARE ASSISTANT, VALERIE S 722.10 Displacement Of Lumbar Intervertebral Disc Without Myelopathy 05/21/2010 SALLY CHILD WELFARE ASSISTANT, VALERIE S V72.31 Pie Cutter Exam, Routine 05/21/2010 SALLY CHILD WELFARE ASSISTANT, VALERIE S 627.9 Menopausal And Postmenopausal Disorder Unspecified 05/21/2010 SALLY CHILD WELFARE ASSISTANT, VALERIE S 722.10 Displacement Of Lumbar Intervertebral Disc Without Myelopathy 05/21/2010 SALLY CHILD WELFARE ASSISTANT, VALERIE S V72.31 Pie Cutter Exam, Routine 05/21/2010 SALLY CHILD WELFARE ASSISTANT, VALERIE S 627.9 Menopausal And Postmenopausal Disorder Unspecified 05/21/2010 SALLY CHILD WELFARE ASSISTANT, VALERIE S 722.10 Displacement Of Lumbar Intervertebral Disc Without Myelopathy 05/21/2010 SALLY CHILD WELFARE ASSISTANT, VALERIE S V72.31 Pie Cutter Exam, Routine 05/21/2010 YATES DO, KARO K 627.9 Menopausal And Postmenopausal Disorder Unspecified 05/21/2010 YATES DO, KARO K 722.10 Displacement Of Lumbar Intervertebral Disc Without Myelopathy 05/21/2010 YATES DO, KARO K V72.31 Pie Cutter Exam, Routine 05/21/2010 SALLY CHILD WELFARE ASSISTANT, VALERIE S 627.9 Menopausal And Postmenopausal Disorder Unspecified 05/21/2010 SALLY CHILD WELFARE ASSISTANT, VALERIE S 722.10 Displacement Of Lumbar Intervertebral Disc Without Myelopathy 05/21/2010 VALERIE ZAVALA APRN S V72.31 Pie Cutter Exam, Routine 06/23/2010 YATES DO KARO K V68.1 Issue Of Repeat Prescriptions 06/23/2010 YATES DO, KARO K V68.1 Issue Of Repeat Prescriptions 06/23/2010 ZORAIDA ESPAÑA APRN V68.1 Issue Of Repeat Prescriptions 06/23/2010 V68.1 Issue Of Repeat Prescriptions 06/23/2010 ADRIAN ZAVALA APRNA S V68.1 Issue Of Repeat Prescriptions 06/23/2010 YATES DO KARO K V68.1 Issue Of Repeat Prescriptions 06/23/2010 ADRIAN ZAVALA APRNA S V68.1 Issue Of Repeat Prescriptions 06/23/2010 VALERIE ZAVALA APRN S V68.1 Issue Of Repeat Prescriptions 06/23/2010 YATES DO KARO K V68.1 Issue Of Repeat Prescriptions 06/23/2010 V68.1 Issue Of Repeat Prescriptions 06/23/2010 V68.1 Issue Of Repeat Prescriptions 06/23/2010 V68.1 Issue Of Repeat Prescriptions 06/23/2010 MICHELLE CAMARGO MD V68.1 Issue Of Repeat Prescriptions 06/23/2010 VALERIE ZAVALA APRN S V68.1 Issue Of Repeat Prescriptions 06/23/2010 ADRIAN ZAVALA APRNA S V68.1 Issue Of Repeat Prescriptions 06/23/2010 YATES DO KARO K V68.1 Issue Of Repeat Prescriptions 06/23/2010 VALERIE ZAVALA APRN S V68.1 Issue Of Repeat Prescriptions 06/23/2010 YATES DO KARO K V68.1 Issue Of Repeat Prescriptions 06/23/2010 ADRIAN ZAVALA APRNA S V68.1 Issue Of Repeat Prescriptions 06/23/2010 ADRIAN ZAVALA APRNA S V68.1 Issue Of Repeat Prescriptions 06/23/2010 ADRIAN ZAVALA APRNA S V68.1 Issue Of Repeat Prescriptions 06/23/2010 ADRIAN ZAVALA APRNA S V68.1 Issue Of Repeat Prescriptions 06/23/2010 ADRIAN ZAVALA APRNA S V68.1 Issue Of Repeat Prescriptions 06/23/2010 VALERIE ZAVALA APRN S V68.1 Issue Of Repeat Prescriptions 06/23/2010 VALERIE ZAVALA APRN S V68.1 Issue Of Repeat Prescriptions 06/23/2010 KARO YATES DO V68.1 Issue Of Repeat Prescriptions 06/23/2010 VALERIE AZVALA APRN S V68.1 Issue Of Repeat Prescriptions 06/23/2010 KARO YATES DO V68.1 Issue Of Repeat Prescriptions 06/23/2010 VALERIE ZAVALA APRN S V68.1 Issue Of Repeat Prescriptions 06/23/2010 VALERIE ZAVALA APRN S V68.1 Issue Of Repeat Prescriptions 06/23/2010 VALERIE ZAVALA APRN S V68.1 Issue Of Repeat Prescriptions 06/23/2010 KARO YATES DO V68.1 Issue Of Repeat Prescriptions 06/23/2010 VALERIE ZAVALA APRN S V68.1 Issue Of Repeat Prescriptions 07/22/2010 Ot 789.09 ABDOMINAL PAIN, OTHER SPECIFIED SITE 09/06/2010 Ot 599.70 HEMATURIA, UNSPECIFIED 09/06/2010 Ot 789.00 ABDOMINAL PAIN, UNSPECIFIED SITE 10/11/2010 Ot 719.06 JOINT EFFUSION-L/LEG 10/11/2010 Ot 924.11 CONTUSION OF KNEE 10/11/2010 Ot 959.7 LOWER LEG INJURY NOS 10/11/2010 Ot E000.8 OTHER EXTERNAL CAUSE STATUS 10/11/2010 Ot E888.9 FALL NOS 10/13/2010 KARO YATES DO 719.46 Knee Pain 10/13/2010 KARO YATES DO E885.9 Accidental Fall From Other Slipping Tripping Or Stumbling 10/13/2010 KARO YATES DO 719.46 Knee Pain 10/13/2010 KARO YATES DO E885.9 Accidental Fall From Other Slipping Tripping Or Stumbling 10/13/2010 ZORAIDA ESPAÑA APRN 719.46 Knee Pain 10/13/2010 ZORAIDA ESPAÑA APRN E885.9 Accidental Fall From Other Slipping Tripping Or Stumbling 10/13/2010 719.46 Knee Pain 10/13/2010 E885.9 Accidental Fall From Other Slipping Tripping Or Stumbling 10/13/2010 SALLY RIVERA VALERIE S 719.46 Knee Pain 10/13/2010 SERINA ZAVALA APRNNDA S E885.9 Accidental Fall From Other Slipping Tripping Or Stumbling 10/13/2010 YATES DO KARO K 719.46 Knee Pain 10/13/2010 YATES DO KARO K E885.9 Accidental Fall From Other Slipping Tripping Or Stumbling 10/13/2010 SALLY RIVERA VALERIE S 719.46 Knee Pain 10/13/2010 SERINA ZAVALA APRNNDA S E885.9 Accidental Fall From Other Slipping Tripping Or Stumbling 10/13/2010 SERINA ZAVALA APRNNDA S 719.46 Knee Pain 10/13/2010 SERINA ZAVALA APRNNDA S E885.9 Accidental Fall From Other Slipping Tripping Or Stumbling 10/13/2010 YATES HALEY RAMIREZA K 719.46 Knee Pain 10/13/2010 MILAN DOHALEYA K E885.9 Accidental Fall From Other Slipping Tripping Or Stumbling 10/13/2010 719.46 Knee Pain 10/13/2010 E885.9 Accidental Fall From Other Slipping Tripping Or Stumbling 10/13/2010 719.46 Knee Pain 10/13/2010 E885.9 Accidental Fall From Other Slipping Tripping Or Stumbling 10/13/2010 719.46 Knee Pain 10/13/2010 E885.9 Accidental Fall From Other Slipping Tripping Or Stumbling 10/13/2010 MICHELLE CAMARGO MD 719.46 Knee Pain 10/13/2010 MICHELLE CAMARGO MD E885.9 Accidental Fall From Other Slipping Tripping Or Stumbling 10/13/2010 SERINA ZAVALA APRNNDA S 719.46 Knee Pain 10/13/2010 ADRIAN ZAVALA APRNA S E885.9 Accidental Fall From Other Slipping Tripping Or Stumbling 10/13/2010 SALLY RIVERA VALERIE S 719.46 Knee Pain 10/13/2010 SERINA ZAVALA APRNNDA S E885.9 Accidental Fall From Other Slipping Tripping Or Stumbling 10/13/2010 YATES DO, KARO K 719.46 Knee Pain 10/13/2010 YATES DO, KARO K E885.9 Accidental Fall From Other Slipping Tripping Or Stumbling 10/13/2010 SALLY CHILD WELFARE ASSISTANT, VALERIE S 719.46 Knee Pain 10/13/2010 ASLLY CHILD WELFARE ASSISTANT, VALERIE S E885.9 Accidental Fall From Other Slipping Tripping Or Stumbling 10/13/2010 YATES DO, KARO K 719.46 Knee Pain 10/13/2010 YATES DO, KARO K E885.9 Accidental Fall From Other Slipping Tripping Or Stumbling 10/13/2010 SALLY CHILD WELFARE ASSISTANT, VALERIE S 719.46 Knee Pain 10/13/2010 SALLY CHILD WELFARE ASSISTANT, VALERIE S E885.9 Accidental Fall From Other Slipping Tripping Or Stumbling 10/13/2010 SALLY CHILD WELFARE ASSISTANT, VALERIE S 719.46 Knee Pain 10/13/2010 SALLY CHILD WELFARE ASSISTANT, VALERIE S E885.9 Accidental Fall From Other Slipping Tripping Or Stumbling 10/13/2010 SALLY CHILD WELFARE ASSISTANT, VALERIE S 719.46 Knee Pain 10/13/2010 SALLY CHILD WELFARE ASSISTANT, VALERIE S E885.9 Accidental Fall From Other Slipping Tripping Or Stumbling 10/13/2010 SALLY CHILD WELFARE ASSISTANT, VALERIE S 719.46 Knee Pain 10/13/2010 SALLY CHILD WELFARE ASSISTANT, VALERIE S E885.9 Accidental Fall From Other Slipping Tripping Or Stumbling 10/13/2010 SALLY CHILD WELFARE ASSISTANT, VALERIE S 719.46 Knee Pain 10/13/2010 SALLY CHILD WELFARE ASSISTANT, VALERIE S E885.9 Accidental Fall From Other Slipping Tripping Or Stumbling 10/13/2010 SALLY CHILD WELFARE ASSISTANT, VALERIE S 719.46 Knee Pain 10/13/2010 SALLY CHILD WELFARE ASSISTANT, VALERIE S E885.9 Accidental Fall From Other Slipping Tripping Or Stumbling 10/13/2010 SALLY CHILD WELFARE ASSISTANT, VALERIE S 719.46 Knee Pain 10/13/2010 SALLY CHILD WELFARE ASSISTANT, VALERIE S E885.9 Accidental Fall From Other Slipping Tripping Or Stumbling 10/13/2010 YATES DO, KARO K 719.46 Knee Pain 10/13/2010 YATES DO, KARO K E885.9 Accidental Fall From Other Slipping Tripping Or Stumbling 10/13/2010 SALLY CHILD WELFARE ASSISTANT, VALERIE S 719.46 Knee Pain 10/13/2010 SALLY CHILD WELFARE ASSISTANT, VALERIE S E885.9 Accidental Fall From Other Slipping Tripping Or Stumbling 10/13/2010 YATES DO, KARO K 719.46 Knee Pain 10/13/2010 YATES DO, KARO K E885.9 Accidental Fall From Other Slipping Tripping Or Stumbling 10/13/2010 SALLY CHILD WELFARE ASSISTANT, VALERIE S 719.46 Knee Pain 10/13/2010 SALLY CHILD WELFARE ASSISTANT VALERIE S E885.9 Accidental Fall From Other Slipping Tripping Or Stumbling 10/13/2010 SALLY CHILD WELFARE ASSISTANT, VALERIE S 719.46 Knee Pain 10/13/2010 SALLY CHILD WELFARE ASSISTANT VALERIE S E885.9 Accidental Fall From Other Slipping Tripping Or Stumbling 10/13/2010 SALLY CHILD WELFARE ASSISTANT, VALERIE S 719.46 Knee Pain 10/13/2010 SALLY CHILD WELFARE ASSISTANT, VALERIE S E885.9 Accidental Fall From Other Slipping Tripping Or Stumbling 10/13/2010 YATES DO, KARO K 719.46 Knee Pain 10/13/2010 YATES DO, KARO K E885.9 Accidental Fall From Other Slipping Tripping Or Stumbling 10/13/2010 SALLY CHILD WELFARE ASSISTANT, VALERIE S 719.46 Knee Pain 10/13/2010 SALLY CHILD WELFARE ASSISTANT, VALERIE S E885.9 Accidental Fall From Other Slipping Tripping Or Stumbling 11/07/2010 Ot 722.52 LUMB/LUMBOSAC DISC DEGEN 11/07/2010 Ot 724.2 LUMBAGO 11/11/2010 YATES DO, KARO K 401.1 HYPERTENSION, BENIGN ESSENTIAL 11/11/2010 YATES DO, KARO K 401.1 HYPERTENSION, BENIGN ESSENTIAL 11/11/2010 ZORAIDA ESPAÑA APRN R 401.1 HYPERTENSION, BENIGN ESSENTIAL 11/11/2010 401.1 HYPERTENSION, BENIGN ESSENTIAL 11/11/2010 SALLY CHILD WELFARE ASSISTANT, VALERIE S 401.1 HYPERTENSION, BENIGN ESSENTIAL 11/11/2010 YATES DO, KARO K 401.1 HYPERTENSION, BENIGN ESSENTIAL 11/11/2010 SALLY CHILD WELFARE ASSISTANT, VALERIE S 401.1 HYPERTENSION, BENIGN ESSENTIAL 11/11/2010 SALLY CHILD WELFARE ASSISTANT, VALERIE S 401.1 HYPERTENSION, BENIGN ESSENTIAL 11/11/2010 YATES DO, KARO K 401.1 HYPERTENSION, BENIGN ESSENTIAL 11/11/2010 401.1 HYPERTENSION, BENIGN ESSENTIAL 11/11/2010 401.1 HYPERTENSION, BENIGN ESSENTIAL 11/11/2010 401.1 HYPERTENSION, BENIGN ESSENTIAL 11/11/2010 MICHELLE CAMARGO MD 401.1 HYPERTENSION, BENIGN ESSENTIAL 11/11/2010 SALLY CHILD WELFARE ASSISTANT, VALERIE S 401.1 HYPERTENSION, BENIGN ESSENTIAL 11/11/2010 SALLY CHILD WELFARE ASSISTANT, VALERIE S 401.1 HYPERTENSION, BENIGN ESSENTIAL 11/11/2010 YATES DO, KARO K 401.1 HYPERTENSION, BENIGN ESSENTIAL 11/11/2010 SALLY CHILD WELFARE ASSISTANT, VALERIE S 401.1 HYPERTENSION, BENIGN ESSENTIAL 11/11/2010 YATES DO, KARO K 401.1 HYPERTENSION, BENIGN ESSENTIAL 11/11/2010 SALLY CHILD WELFARE ASSISTANT, VALERIE S 401.1 HYPERTENSION, BENIGN ESSENTIAL 11/11/2010 SALLY CHILD WELFARE ASSISTANT, VALERIE S 401.1 HYPERTENSION, BENIGN ESSENTIAL 11/11/2010 SALLY CHILD WELFARE ASSISTANT, VALERIE S 401.1 HYPERTENSION, BENIGN ESSENTIAL 11/11/2010 SALLY CHILD WELFARE ASSISTANT, VALERIE S 401.1 HYPERTENSION, BENIGN ESSENTIAL 11/11/2010 SALLY CHILD WELFARE ASSISTANT, VALERIE S 401.1 HYPERTENSION, BENIGN ESSENTIAL 11/11/2010 SALLY CHILD WELFARE ASSISTANT, VALERIE S 401.1 HYPERTENSION, BENIGN ESSENTIAL 11/11/2010 SALLY CHILD WELFARE ASSISTANT, VALERIE S 401.1 HYPERTENSION, BENIGN ESSENTIAL 11/11/2010 YATES DO, KARO K 401.1 HYPERTENSION, BENIGN ESSENTIAL 11/11/2010 SALLY CHILD WELFARE ASSISTANT, VALERIE S 401.1 HYPERTENSION, BENIGN ESSENTIAL 11/11/2010 YATES DO, KARO K 401.1 HYPERTENSION, BENIGN ESSENTIAL 11/11/2010 SALLY CHILD WELFARE ASSISTANT, VALERIE S 401.1 HYPERTENSION, BENIGN ESSENTIAL 11/11/2010 SALLY CHILD WELFARE ASSISTANT, VALERIE S 401.1 HYPERTENSION, BENIGN ESSENTIAL 11/11/2010 VALERIE ZAVALA APRN S 401.1 HYPERTENSION, BENIGN ESSENTIAL 11/11/2010 KARO YATES DO K 401.1 HYPERTENSION, BENIGN ESSENTIAL 11/11/2010 VALERIE ZAVALA APRN S 401.1 HYPERTENSION, BENIGN ESSENTIAL 03/01/2011 Ot 276.8 HYPOPOTASSEMIA 03/01/2011 Ot 300.00 ANXIETY STATE NOS 03/01/2011 Ot 305.1 TOBACCO USE DISORDER 03/01/2011 Ot 401.9 HYPERTENSION NOS 03/01/2011 Ot 789.09 ABDOMINAL PAIN, OTHER SPECIFIED SITE 03/01/2011 Ot V58.69 OTH MED,LT,CURRENT USE 03/09/2011 KARO YATES DO V04.81 Flu Dx (3 Yrs And Above, Im) 03/09/2011 KARO YATES DO V04.81 Flu Dx (3 Yrs And Above, Im) 03/09/2011 ZORAIDA ESPAÑA APRN V04.81 Flu Dx (3 Yrs And Above, Im) 03/09/2011 V04.81 Flu Dx (3 Yrs And Above, Im) 03/09/2011 VALERIE ZAVALA APRN S V04.81 Flu Dx (3 Yrs And Above, Im) 03/09/2011 KARO YATES DO V04.81 Flu Dx (3 Yrs And Above, Im) 03/09/2011 VALERIE ZAVALA APRN S V04.81 Flu Dx (3 Yrs And Above, Im) 03/09/2011 VALERIE ZAVALA APRN S V04.81 Flu Dx (3 Yrs And Above, Im) 03/09/2011 KARO YATES DO V04.81 Flu Dx (3 Yrs And Above, Im) 03/09/2011 V04.81 Flu Dx (3 Yrs And Above, Im) 03/09/2011 V04.81 Flu Dx (3 Yrs And Above, Im) 03/09/2011 V04.81 Flu Dx (3 Yrs And Above, Im) 03/09/2011 MICHELLE CAMARGO MD V04.81 Flu Dx (3 Yrs And Above, Im) 03/09/2011 VALERIE ZAVALA APRN S V04.81 Flu Dx (3 Yrs And Above, Im) 03/09/2011 SALLY CHILD WELFARE ASSISTANT, VALERIE S V04.81 Flu Dx (3 Yrs And Above, Im) 03/09/2011 YATES DO, KARO K V04.81 Flu Dx (3 Yrs And Above, Im) 03/09/2011 SALLY CHILD WELFARE ASSISTANT, VALERIE S V04.81 Flu Dx (3 Yrs And Above, Im) 03/09/2011 YATES DO, KARO K V04.81 Flu Dx (3 Yrs And Above, Im) 03/09/2011 SALLY CHILD WELFARE ASSISTANT, VALERIE S V04.81 Flu Dx (3 Yrs And Above, Im) 03/09/2011 SALLY CHILD WELFARE ASSISTANT, VALERIE S V04.81 Flu Dx (3 Yrs And Above, Im) 03/09/2011 SALLY CHILD WELFARE ASSISTANT, VALERIE S V04.81 Flu Dx (3 Yrs And Above, Im) 03/09/2011 SALLY CHILD WELFARE ASSISTANT, VALERIE S V04.81 Flu Dx (3 Yrs And Above, Im) 03/09/2011 SALLY CHILD WELFARE ASSISTANT, VALERIE S V04.81 Flu Dx (3 Yrs And Above, Im) 03/09/2011 SALLY CHILD WELFARE ASSISTANT, VALERIE S V04.81 Flu Dx (3 Yrs And Above, Im) 03/09/2011 SALLY CHILD WELFARE ASSISTANT, VALERIE S V04.81 Flu Dx (3 Yrs And Above, Im) 03/09/2011 YATES DO, KARO K V04.81 Flu Dx (3 Yrs And Above, Im) 03/09/2011 SALLY CHILD WELFARE ASSISTANT, VALERIE S V04.81 Flu Dx (3 Yrs And Above, Im) 03/09/2011 YATES DO, KARO K V04.81 Flu Dx (3 Yrs And Above, Im) 03/09/2011 SALLY CHILD WELFARE ASSISTANT, VALERIE S V04.81 Flu Dx (3 Yrs And Above, Im) 03/09/2011 SALLY CHILD WELFARE ASSISTANT, VALERIE S V04.81 Flu Dx (3 Yrs And Above, Im) 03/09/2011 SALLY CHILD WELFARE ASSISTANT, VALERIE S V04.81 Flu Dx (3 Yrs And Above, Im) 03/09/2011 YATES DO, KARO K V04.81 Flu Dx (3 Yrs And Above, Im) 03/09/2011 SALLY CHILD WELFARE ASSISTANT, VALERIE S V04.81 Flu Dx (3 Yrs And Above, Im) 03/14/2011 YATES DO, KARO K 625.9 Pelvic Pain 03/14/2011 YATES DO, KARO K 791.0 Proteinuria 03/14/2011 YATES DO, KARO K 625.9 Pelvic Pain 03/14/2011 YATES DO, KARO K 791.0 Proteinuria 03/14/2011 ESPAÑA CHILD WELFARE ASSISTANT, ZORAIDA R 625.9 Pelvic Pain 03/14/2011 ESPAÑA CHILD WELFARE ASSISTANT, ZORAIDA R 791.0 Proteinuria 03/14/2011 625.9 Pelvic Pain 03/14/2011 791.0 Proteinuria 03/14/2011 SALLY CHILD WELFARE ASSISTANT, VALERIE S 625.9 Pelvic Pain 03/14/2011 SALLY CHILD WELFARE ASSISTANT, VALERIE S 791.0 Proteinuria 03/14/2011 YATES DO, KARO K 625.9 Pelvic Pain 03/14/2011 YATES DO, KARO K 791.0 Proteinuria 03/14/2011 SALLY CHILD WELFARE ASSISTANT, VALERIE S 625.9 Pelvic Pain 03/14/2011 SALLY CHILD WELFARE ASSISTANT, VALERIE S 791.0 Proteinuria 03/14/2011 SALLY CHILD WELFARE ASSISTANT, VALERIE S 625.9 Pelvic Pain 03/14/2011 SALLY CHILD WELFARE ASSISTANT, VALERIE S 791.0 Proteinuria 03/14/2011 YATES DO, KARO K 625.9 Pelvic Pain 03/14/2011 YATES DO, KARO K 791.0 Proteinuria 03/14/2011 625.9 Pelvic Pain 03/14/2011 791.0 Proteinuria 03/14/2011 625.9 Pelvic Pain 03/14/2011 791.0 Proteinuria 03/14/2011 625.9 Pelvic Pain 03/14/2011 791.0 Proteinuria 03/14/2011 MICHELLE CAMARGO MD 625.9 Pelvic Pain 03/14/2011 MICHELLE CAMARGO MD 791.0 Proteinuria 03/14/2011 SALLY CHILD WELFARE ASSISTANT, VALERIE S 625.9 Pelvic Pain 03/14/2011 SALLY CHILD WELFARE ASSISTANT, VALERIE S 791.0 Proteinuria 03/14/2011 SALLY CHILD WELFARE ASSISTANT, VALERIE S 625.9 Pelvic Pain 03/14/2011 SALLY CHILD WELFARE ASSISTANT, VALERIE S 791.0 Proteinuria 03/14/2011 YATES DO, KARO K 625.9 Pelvic Pain 03/14/2011 YATES DO, KARO K 791.0 Proteinuria 03/14/2011 SALLY CHILD WELFARE ASSISTANT, VALERIE S 625.9 Pelvic Pain 03/14/2011 SALLY CHILD WELFARE ASSISTANT, VALERIE S 791.0 Proteinuria 03/14/2011 YATES DO, KARO K 625.9 Pelvic Pain 03/14/2011 YATES DO, KARO K 791.0 Proteinuria 03/14/2011 SALLY CHILD WELFARE ASSISTANT, VALERIE S 625.9 Pelvic Pain 03/14/2011 SALLY CHILD WELFARE ASSISTANT, VALERIE S 791.0 Proteinuria 03/14/2011 SALLY CHILD WELFARE ASSISTANT, VALERIE S 625.9 Pelvic Pain 03/14/2011 SALLY CHILD WELFARE ASSISTANT, VALERIE S 791.0 Proteinuria 03/14/2011 SALLY CHILD WELFARE ASSISTANT, VALERIE S 625.9 Pelvic Pain 03/14/2011 SALLY CHILD WELFARE ASSISTANT, VALERIE S 791.0 Proteinuria 03/14/2011 SALLY CHILD WELFARE ASSISTANT, VALERIE S 625.9 Pelvic Pain 03/14/2011 SALLY CHILD WELFARE ASSISTANT, VALERIE S 791.0 Proteinuria 03/14/2011 SALLY CHILD WELFARE ASSISTANT, VALERIE S 625.9 Pelvic Pain 03/14/2011 SALLY CHILD WELFARE ASSISTANT, VALERIE S 791.0 Proteinuria 03/14/2011 SALLY CHILD WELFARE ASSISTANT, VALERIE S 625.9 Pelvic Pain 03/14/2011 SALLY CHILD WELFARE ASSISTANT, VALERIE S 791.0 Proteinuria 03/14/2011 SALLY CHILD WELFARE ASSISTANT, VALERIE S 625.9 Pelvic Pain 03/14/2011 SALLY CHILD WELFARE ASSISTANT, VALERIE S 791.0 Proteinuria 03/14/2011 YATES DO, KARO K 625.9 Pelvic Pain 03/14/2011 YATES DO, KARO K 791.0 Proteinuria 03/14/2011 SALLY CHILD WELFARE ASSISTANT, VALERIE S 625.9 Pelvic Pain 03/14/2011 SALLY CHILD WELFARE ASSISTANT, VALERIE S 791.0 Proteinuria 03/14/2011 YATES DO, KARO K 625.9 Pelvic Pain 03/14/2011 YATES DO, KARO K 791.0 Proteinuria 03/14/2011 SALLY CHILD WELFARE ASSISTANT, VALERIE S 625.9 Pelvic Pain 03/14/2011 SALLY CHILD WELFARE ASSISTANT, VALERIE S 791.0 Proteinuria 03/14/2011 SALLY CHILD WELFARE ASSISTANT, VALERIE S 625.9 Pelvic Pain 03/14/2011 SALLY CHILD WELFARE ASSISTANT, VALERIE S 791.0 Proteinuria 03/14/2011 SALLY CHILD WELFARE ASSISTANT, VALERIE S 625.9 Pelvic Pain 03/14/2011 SALLY CHILD WELFARE ASSISTANT, VALERIE S 791.0 Proteinuria 03/14/2011 YATES DO, KARO K 625.9 Pelvic Pain 03/14/2011 YATES DO, KARO K 791.0 Proteinuria 03/14/2011 SALLY CHILD WELFARE ASSISTANT, VALERIE S 625.9 Pelvic Pain 03/14/2011 SALLY CHILD WELFARE ASSISTANT, VALERIE S 791.0 Proteinuria 04/26/2011 Ot 614.6 FEM PELVIC PERITON ADH-POST-OP/INF 05/20/2011 HALEY YATES DOA K 300.02 AN GEN ANXIETY 05/20/2011 HALEY YATES DOA K 789.07 ABDOMINAL PAIN GENERALIZED 05/20/2011 HALEY YATES DOA K 300.02 AN GEN ANXIETY 05/20/2011 MILAN RAMIREZ KARO K 789.07 ABDOMINAL PAIN GENERALIZED 05/20/2011 ALEXY ESPAÑA APRNIA R 300.02 AN GEN ANXIETY 05/20/2011 ALEXY ESPAÑA APRNIA R 789.07 ABDOMINAL PAIN GENERALIZED 05/20/2011 300.02 AN GEN ANXIETY 05/20/2011 789.07 ABDOMINAL PAIN GENERALIZED 05/20/2011 SERINA ZAVALA APRNNDA S 300.02 AN GEN ANXIETY 05/20/2011 SERINA ZAVALA APRNNDA S 789.07 ABDOMINAL PAIN GENERALIZED 05/20/2011 YATES DO KARO K 300.02 AN GEN ANXIETY 05/20/2011 YATES DO KARO K 789.07 ABDOMINAL PAIN GENERALIZED 05/20/2011 SERINA ZAVALA APRNNDA S 300.02 AN GEN ANXIETY 05/20/2011 SALLY CHILD WELFARE ASSISTANTSERINA TalleyNDA S 789.07 ABDOMINAL PAIN GENERALIZED 05/20/2011 SALLY CHILD WELFARE ASSISTANTSERINA TalleyNDA S 300.02 AN GEN ANXIETY 05/20/2011 SERINA ZAVALA APRNNDA S 789.07 ABDOMINAL PAIN GENERALIZED 05/20/2011 YATES DO, KARO K 300.02 AN GEN ANXIETY 05/20/2011 MILAN DO, KARO K 789.07 ABDOMINAL PAIN GENERALIZED 05/20/2011 300.02 AN GEN ANXIETY 05/20/2011 789.07 ABDOMINAL PAIN GENERALIZED 05/20/2011 300.02 AN GEN ANXIETY 05/20/2011 789.07 ABDOMINAL PAIN GENERALIZED 05/20/2011 300.02 AN GEN ANXIETY 05/20/2011 789.07 ABDOMINAL PAIN GENERALIZED 05/20/2011 MICHELLE CAMARGO MD 300.02 AN GEN ANXIETY 05/20/2011 MICHELLE CAMARGO MD 789.07 ABDOMINAL PAIN GENERALIZED 05/20/2011 SERINA ZAVALA APRNNDA S 300.02 AN GEN ANXIETY 05/20/2011 ADRIAN ZAVALA APRNA S 789.07 ABDOMINAL PAIN GENERALIZED 05/20/2011 ADRIAN ZAVALA APRNA S 300.02 AN GEN ANXIETY 05/20/2011 ADRIAN ZAVALA APRNA S 789.07 ABDOMINAL PAIN GENERALIZED 05/20/2011 MILAN DOKARO K 300.02 AN GEN ANXIETY 05/20/2011 MILAN DO, KARO K 789.07 ABDOMINAL PAIN GENERALIZED 05/20/2011 SERINA ZAVALA APRNNDA S 300.02 AN GEN ANXIETY 05/20/2011 SERINA ZAVALA APRNNDA S 789.07 ABDOMINAL PAIN GENERALIZED 05/20/2011 MILAN DO, KARO K 300.02 AN GEN ANXIETY 05/20/2011 MILAN DO, KARO K 789.07 ABDOMINAL PAIN GENERALIZED 05/20/2011 SERINA ZAVALA APRNNDA S 300.02 AN GEN ANXIETY 05/20/2011 SERINA ZAVALA APRNNDA S 789.07 ABDOMINAL PAIN GENERALIZED 05/20/2011 SERINA ZAVALA APRNNDA S 300.02 AN GEN ANXIETY 05/20/2011 SERINA ZAVALA APRNNDA S 789.07 ABDOMINAL PAIN GENERALIZED 05/20/2011 SERINA ZAVALA APRNNDA S 300.02 AN GEN ANXIETY 05/20/2011 SERINA ZAVALA APRNNDA S 789.07 ABDOMINAL PAIN GENERALIZED 05/20/2011 SERINA ZAVALA APRNNDA S 300.02 AN GEN ANXIETY 05/20/2011 SERINA ZAVLAA APRNNDA S 789.07 ABDOMINAL PAIN GENERALIZED 05/20/2011 SALLY CHILD WELFARE ASSISTANTSERINAVALERIE S 300.02 AN GEN ANXIETY 05/20/2011 SALLY CHILD WELFARE ASSISTANTSERINAVALERIE S 789.07 ABDOMINAL PAIN GENERALIZED 05/20/2011 SALLY CHILD WELFARE ASSISTANT VALERIE S 300.02 AN GEN ANXIETY 05/20/2011 SALLY CHILD WELFARE ASSISTANT VALERIE S 789.07 ABDOMINAL PAIN GENERALIZED 05/20/2011 SALLY CHILD WELFARE ASSISTANTSERINA TalleyNDA S 300.02 AN GEN ANXIETY 05/20/2011 SALLY CHILD WELFARE ASSISTANTSERINAVALERIE S 789.07 ABDOMINAL PAIN GENERALIZED 05/20/2011 YATES DO, KARO K 300.02 AN GEN ANXIETY 05/20/2011 YATES DO, KARO K 789.07 ABDOMINAL PAIN GENERALIZED 05/20/2011 SALLY SERINA RIVERANDA S 300.02 AN GEN ANXIETY 05/20/2011 SALLY CHILD WELFARE ASSISTANTSERINA TalleyNDA S 789.07 ABDOMINAL PAIN GENERALIZED 05/20/2011 YATES DO, KARO K 300.02 AN GEN ANXIETY 05/20/2011 YATES DO, KARO K 789.07 ABDOMINAL PAIN GENERALIZED 05/20/2011 SALLY CHILD WELFARE ASSISTANTSERINAVALERIE S 300.02 AN GEN ANXIETY 05/20/2011 SALLY CHILD WELFARE ASSISTANTSERINA TalleyNDA S 789.07 ABDOMINAL PAIN GENERALIZED 05/20/2011 SERINA ZAVALA APRNNDA S 300.02 AN GEN ANXIETY 05/20/2011 SALLY CHILD WELFARE ASSISTANTSERINA TalleyNDA S 789.07 ABDOMINAL PAIN GENERALIZED 05/20/2011 SERINA ZAVALA APRNNDA S 300.02 AN GEN ANXIETY 05/20/2011 SALLY CHILD WELFARE ASSISTANTSERINA TalleyNDA S 789.07 ABDOMINAL PAIN GENERALIZED 05/20/2011 YATES DO, KARO K 300.02 AN GEN ANXIETY 05/20/2011 YATES DO, KARO K 789.07 ABDOMINAL PAIN GENERALIZED 05/20/2011 SALLY CHILD WELFARE ASSISTANT VALERIE S 300.02 AN GEN ANXIETY 05/20/2011 SALLY CHILD WELFARE ASSISTANT, VALERIE S 789.07 ABDOMINAL PAIN GENERALIZED 06/09/2011 YATES DO, KARO K 796.2 Elevated Blood Pressure Reading Without Diagnosis Of Hypertension 06/09/2011 YATES DO, KARO K 796.2 Elevated Blood Pressure Reading Without Diagnosis Of Hypertension 06/09/2011 ZORAIDA ESPAÑA APRN R 796.2 Elevated Blood Pressure Reading Without Diagnosis Of Hypertension 06/09/2011 796.2 Elevated Blood Pressure Reading Without Diagnosis Of Hypertension 06/09/2011 SALLY CHILD WELFARE ASSISTANT, VALERIE S 796.2 Elevated Blood Pressure Reading Without Diagnosis Of Hypertension 06/09/2011 HALEY YATES DOA K 796.2 Elevated Blood Pressure Reading Without Diagnosis Of Hypertension 06/09/2011 SALLY CHILD WELFARE ASSISTANT, VALERIE S 796.2 Elevated Blood Pressure Reading Without Diagnosis Of Hypertension 06/09/2011 SALLY CHILD WELFARE ASSISTANT, VALERIE S 796.2 Elevated Blood Pressure Reading Without Diagnosis Of Hypertension 06/09/2011 YATES DO KARO K 796.2 Elevated Blood Pressure Reading Without Diagnosis Of Hypertension 06/09/2011 796.2 Elevated Blood Pressure Reading Without Diagnosis Of Hypertension 06/09/2011 796.2 Elevated Blood Pressure Reading Without Diagnosis Of Hypertension 06/09/2011 796.2 Elevated Blood Pressure Reading Without Diagnosis Of Hypertension 06/09/2011 MICHELLE CAMARGO MD 796.2 Elevated Blood Pressure Reading Without Diagnosis Of Hypertension 06/09/2011 SALLY CHILD WELFARE ASSISTANT, VALERIE S 796.2 Elevated Blood Pressure Reading Without Diagnosis Of Hypertension 06/09/2011 SALLY CHILD WELFARE ASSISTANT, VALERIE S 796.2 Elevated Blood Pressure Reading Without Diagnosis Of Hypertension 06/09/2011 YATES DOHALEYA K 796.2 Elevated Blood Pressure Reading Without Diagnosis Of Hypertension 06/09/2011 SALLY CHILD WELFARE ASSISTANT, VALERIE S 796.2 Elevated Blood Pressure Reading Without Diagnosis Of Hypertension 06/09/2011 HALEY YATES DOA K 796.2 Elevated Blood Pressure Reading Without Diagnosis Of Hypertension 06/09/2011 SALLY CHILD WELFARE ASSISTANT, VALERIE S 796.2 Elevated Blood Pressure Reading Without Diagnosis Of Hypertension 06/09/2011 SALLY CHILD WELFARE ASSISTANT, VALERIE S 796.2 Elevated Blood Pressure Reading Without Diagnosis Of Hypertension 06/09/2011 SALLY CHILD WELFARE ASSISTANT, VALERIE S 796.2 Elevated Blood Pressure Reading Without Diagnosis Of Hypertension 06/09/2011 SALLY CHILD WELFARE ASSISTANT, VALERIE S 796.2 Elevated Blood Pressure Reading Without Diagnosis Of Hypertension 06/09/2011 SALLY CHILD WELFARE ASSISTANT, VALERIE S 796.2 Elevated Blood Pressure Reading Without Diagnosis Of Hypertension 06/09/2011 VALERIE ZAVALA APRN S 796.2 Elevated Blood Pressure Reading Without Diagnosis Of Hypertension 06/09/2011 ADRIAN ZAVALA APRNA S 796.2 Elevated Blood Pressure Reading Without Diagnosis Of Hypertension 06/09/2011 KARO YATES DO K 796.2 Elevated Blood Pressure Reading Without Diagnosis Of Hypertension 06/09/2011 VALERIE ZAVALA APRN S 796.2 Elevated Blood Pressure Reading Without Diagnosis Of Hypertension 06/09/2011 KARO YATES DO K 796.2 Elevated Blood Pressure Reading Without Diagnosis Of Hypertension 06/09/2011 VALERIE ZAVALA APRN S 796.2 Elevated Blood Pressure Reading Without Diagnosis Of Hypertension 06/09/2011 ADRIAN ZAVALA APRNA S 796.2 Elevated Blood Pressure Reading Without Diagnosis Of Hypertension 06/09/2011 VALERIE ZAVALA APRN S 796.2 Elevated Blood Pressure Reading Without Diagnosis Of Hypertension 06/09/2011 KARO YATES DO K 796.2 Elevated Blood Pressure Reading Without Diagnosis Of Hypertension 06/09/2011 VALERIE ZAVALA APRN S 796.2 Elevated Blood Pressure Reading Without Diagnosis Of Hypertension 07/07/2011 Ot 300.00 ANXIETY STATE NOS 07/07/2011 Ot 305.1 TOBACCO USE DISORDER 07/07/2011 Ot 401.9 HYPERTENSION NOS 07/07/2011 Ot 530.81 ESOPHAGEAL REFLUX 07/07/2011 Ot 564.1 IRRITABLE BOWEL SYNDROME 07/07/2011 Ot 596.51 HYPERTONICITY OF BLADDER 07/07/2011 Ot 599.70 HEMATURIA, UNSPECIFIED 07/07/2011 Ot 614.6 FEM PELVIC PERITON ADH-POST-OP/INF 07/07/2011 Ot 791.0 PROTEINURIA 07/07/2011 Ot V13.29 PERSONAL HISTORY GENITAL SYSTEM/OBSTETRI 07/10/2011 Ot 599.0 URIN TRACT INFECTION NOS 07/10/2011 Ot 789.09 ABDOMINAL PAIN, OTHER SPECIFIED SITE 07/12/2011 KARO YATES DO 338.4 CHRONIC PAIN SYNDROME 07/12/2011 KARO YATES DO 338.4 CHRONIC PAIN SYNDROME 07/12/2011 ZORAIDA ESPAÑA APRN 338.4 CHRONIC PAIN SYNDROME 07/12/2011 338.4 CHRONIC PAIN SYNDROME 07/12/2011 SALLY CHILD WELFARE ASSISTANT, VALERIE S 338.4 CHRONIC PAIN SYNDROME 07/12/2011 YATES DO, KARO K 338.4 CHRONIC PAIN SYNDROME 07/12/2011 SALLY CHILD WELFARE ASSISTANT, VALERIE S 338.4 CHRONIC PAIN SYNDROME 07/12/2011 SALLY CHILD WELFARE ASSISTANT, VALERIE S 338.4 CHRONIC PAIN SYNDROME 07/12/2011 YATES DO, KARO K 338.4 CHRONIC PAIN SYNDROME 07/12/2011 338.4 CHRONIC PAIN SYNDROME 07/12/2011 338.4 CHRONIC PAIN SYNDROME 07/12/2011 338.4 CHRONIC PAIN SYNDROME 07/12/2011 MICHELLE CAMARGO MD 338.4 CHRONIC PAIN SYNDROME 07/12/2011 SALLY CHILD WELFARE ASSISTANT, VALERIE S 338.4 CHRONIC PAIN SYNDROME 07/12/2011 SALLY CHILD WELFARE ASSISTANT, VALERIE S 338.4 CHRONIC PAIN SYNDROME 07/12/2011 YATES DO, KARO K 338.4 CHRONIC PAIN SYNDROME 07/12/2011 SALLY CHILD WELFARE ASSISTANT, VALERIE S 338.4 CHRONIC PAIN SYNDROME 07/12/2011 YATES DO, KARO K 338.4 CHRONIC PAIN SYNDROME 07/12/2011 SALLY CHILD WELFARE ASSISTANT, VALERIE S 338.4 CHRONIC PAIN SYNDROME 07/12/2011 SALLY CHILD WELFARE ASSISTANT, VALERIE S 338.4 CHRONIC PAIN SYNDROME 07/12/2011 SALLY CHILD WELFARE ASSISTANT, VALERIE S 338.4 CHRONIC PAIN SYNDROME 07/12/2011 SALLY CHILD WELFARE ASSISTANT, VALERIE S 338.4 CHRONIC PAIN SYNDROME 07/12/2011 SALLY CHILD WELFARE ASSISTANT, VALERIE S 338.4 CHRONIC PAIN SYNDROME 07/12/2011 SALLY CHILD WELFARE ASSISTANT, VALERIE S 338.4 CHRONIC PAIN SYNDROME 07/12/2011 SALLY CHILD WELFARE ASSISTANT, VALERIE S 338.4 CHRONIC PAIN SYNDROME 07/12/2011 YATES DO, KARO K 338.4 CHRONIC PAIN SYNDROME 07/12/2011 SALLY CHILD WELFARE ASSISTANT, VALERIE S 338.4 CHRONIC PAIN SYNDROME 07/12/2011 YATES DO, KARO K 338.4 CHRONIC PAIN SYNDROME 07/12/2011 SALLY CHILD WELFARE ASSISTANT, VALERIE S 338.4 CHRONIC PAIN SYNDROME 07/12/2011 SALLY CHILD WELFARE ASSISTANT, VALERIE S 338.4 CHRONIC PAIN SYNDROME 07/12/2011 SALLY CHILD WELFARE ASSISTANT, VALERIE S 338.4 CHRONIC PAIN SYNDROME 07/12/2011 KARO YATES DO K 338.4 CHRONIC PAIN SYNDROME 07/12/2011 VALERIE ZAVALA APRN 338.4 CHRONIC PAIN SYNDROME 09/20/2011 Ot 276.1 HYPOSMOLALITY 09/20/2011 Ot 300.00 ANXIETY STATE NOS 09/20/2011 Ot 305.1 TOBACCO USE DISORDER 09/20/2011 Ot 338.29 OTHER CHRONIC PAIN 09/20/2011 Ot 401.9 HYPERTENSION NOS 09/20/2011 Ot 496 CHR AIRWAY OBSTRUCT NEC 09/20/2011 Ot 564.00 UNSPEC CONSTIPATION 09/20/2011 Ot 564.1 IRRITABLE BOWEL SYNDROME 09/20/2011 Ot 584.9 ACUTE RENAL FAILURE, UNSPECIFIED 09/20/2011 Ot 590.80 PYELONEPHRITIS NOS 09/20/2011 Ot 625.9 FEM GENITAL SYMPTOMS NOS 09/23/2011 KARO YATES DO K 735.0 HALLUX VALGUS (ACQUIRED) 09/23/2011 KARO YATES DO K 735.4 HAMMER TOE (ACQUIRED) 09/23/2011 KARO YATES DO K 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 09/23/2011 KARO YATES DO K 735.0 HALLUX VALGUS (ACQUIRED) 09/23/2011 KARO YATES DO K 735.4 HAMMER TOE (ACQUIRED) 09/23/2011 KARO YATES DO K 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 09/23/2011 TACO RIVERA, ZORAIDA R 735.0 HALLUX VALGUS (ACQUIRED) 09/23/2011 TACO RIVERA ZORAIDA R 735.4 HAMMER TOE (ACQUIRED) 09/23/2011 TACO RIVERA ZORAIDA R 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 09/23/2011 735.0 HALLUX VALGUS (ACQUIRED) 09/23/2011 735.4 HAMMER TOE (ACQUIRED) 09/23/2011 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 09/23/2011 VALERIE ZAVALA APRN S 735.0 HALLUX VALGUS (ACQUIRED) 09/23/2011 VALERIE ZAVALA APRN S 735.4 HAMMER TOE (ACQUIRED) 09/23/2011 VALERIE ZAVALA APRN S 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 09/23/2011 KARO YATES DO K 735.0 HALLUX VALGUS (ACQUIRED) 09/23/2011 KARO YATES DO K 735.4 HAMMER TOE (ACQUIRED) 09/23/2011 KARO YATES DO K 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 09/23/2011 SALLY RIVERA VALERIE S 735.0 HALLUX VALGUS (ACQUIRED) 09/23/2011 SALLY CHILD WELFARE ASSISTANT, VALERIE S 735.4 HAMMER TOE (ACQUIRED) 09/23/2011 SALLY CHILD WELFARE ASSISTANT, VALERIE S 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 09/23/2011 SALLY CHILD WELFARE ASSISTANT, VALERIE S 735.0 HALLUX VALGUS (ACQUIRED) 09/23/2011 SALLY RIVERA, VALERIE S 735.4 HAMMER TOE (ACQUIRED) 09/23/2011 SALLY RIVERA VALERIE S 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 09/23/2011 KARO YATES DO K 735.0 HALLUX VALGUS (ACQUIRED) 09/23/2011 KARO YATES DO K 735.4 HAMMER TOE (ACQUIRED) 09/23/2011 KARO YATES DO K 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 09/23/2011 735.0 HALLUX VALGUS (ACQUIRED) 09/23/2011 735.4 HAMMER TOE (ACQUIRED) 09/23/2011 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 09/23/2011 735.0 HALLUX VALGUS (ACQUIRED) 09/23/2011 735.4 HAMMER TOE (ACQUIRED) 09/23/2011 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 09/23/2011 735.0 HALLUX VALGUS (ACQUIRED) 09/23/2011 735.4 HAMMER TOE (ACQUIRED) 09/23/2011 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 09/23/2011 MICHELLE CAMARGO MD 735.0 HALLUX VALGUS (ACQUIRED) 09/23/2011 MICHELLE CAMARGO MD 735.4 HAMMER TOE (ACQUIRED) 09/23/2011 MICHELLE CAMARGO MD 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 09/23/2011 SALLY RIVERA VALERIE S 735.0 HALLUX VALGUS (ACQUIRED) 09/23/2011 SERINA ZAVALA APRNNDA S 735.4 HAMMER TOE (ACQUIRED) 09/23/2011 SALLY CHILD WELFARE ASSISTANT, VALERIE S 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 09/23/2011 SALLY CHILD WELFARE ASSISTANT, VALERIE S 735.0 HALLUX VALGUS (ACQUIRED) 09/23/2011 SALLY CHILD WELFARE ASSISTANT, VALERIE S 735.4 HAMMER TOE (ACQUIRED) 09/23/2011 SALLY CHILD WELFARE ASSISTANT, VALERIE S 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 09/23/2011 YATES DO, KARO K 735.0 HALLUX VALGUS (ACQUIRED) 09/23/2011 YATES DO, KARO K 735.4 HAMMER TOE (ACQUIRED) 09/23/2011 YATES DO, KARO K 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 09/23/2011 SALLY CHILD WELFARE ASSISTANT, VALERIE S 735.0 HALLUX VALGUS (ACQUIRED) 09/23/2011 SALLY CHILD WELFARE ASSISTANT, VALERIE S 735.4 HAMMER TOE (ACQUIRED) 09/23/2011 SALLY CHILD WELFARE ASSISTANT, VALERIE S 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 09/23/2011 YATES DO, KARO K 735.0 HALLUX VALGUS (ACQUIRED) 09/23/2011 YATES DO, KARO K 735.4 HAMMER TOE (ACQUIRED) 09/23/2011 YATES DO, KARO K 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 09/23/2011 SALLY CHILD WELFARE ASSISTANT, VALERIE S 735.0 HALLUX VALGUS (ACQUIRED) 09/23/2011 SALLY CHILD WELFARE ASSISTANT, VALERIE S 735.4 HAMMER TOE (ACQUIRED) 09/23/2011 SALLY CHILD WELFARE ASSISTANT, VALERIE S 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 09/23/2011 SALLY CHILD WELFARE ASSISTANT, VALERIE S 735.0 HALLUX VALGUS (ACQUIRED) 09/23/2011 SALLY CHILD WELFARE ASSISTANT, VALERIE S 735.4 HAMMER TOE (ACQUIRED) 09/23/2011 SALLY CHILD WELFARE ASSISTANT, VALERIE S 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 09/23/2011 SALLY CHILD WELFARE ASSISTANT, VALERIE S 735.0 HALLUX VALGUS (ACQUIRED) 09/23/2011 SALLY CHILD WELFARE ASSISTANT, VALERIE S 735.4 HAMMER TOE (ACQUIRED) 09/23/2011 SALLY CHILD WELFARE ASSISTANT, VALERIE S 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 09/23/2011 SALLY CHILD WELFARE ASSISTANT, VALERIE S 735.0 HALLUX VALGUS (ACQUIRED) 09/23/2011 SALLY CHILD WELFARE ASSISTANT, VALERIE S 735.4 HAMMER TOE (ACQUIRED) 09/23/2011 SALLY CHILD WELFARE ASSISTANT, VALERIE S 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 09/23/2011 SALLY CHILD WELFARE ASSISTANT, VALERIE S 735.0 HALLUX VALGUS (ACQUIRED) 09/23/2011 SALLY CHILD WELFARE ASSISTANT, VALERIE S 735.4 HAMMER TOE (ACQUIRED) 09/23/2011 SALLY CHILD WELFARE ASSISTANT, VALERIE S 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 09/23/2011 SALLY CHILD WELFARE ASSISTANT, VALERIE S 735.0 HALLUX VALGUS (ACQUIRED) 09/23/2011 SALLY CHILD WELFARE ASSISTANT, VALERIE S 735.4 HAMMER TOE (ACQUIRED) 09/23/2011 SALLY CHILD WELFARE ASSISTANT, VALERIE S 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 09/23/2011 SALLY CHILD WELFARE ASSISTANT, VALERIE S 735.0 HALLUX VALGUS (ACQUIRED) 09/23/2011 SALLY CHILD WELFARE ASSISTANT, VALERIE S 735.4 HAMMER TOE (ACQUIRED) 09/23/2011 SALLY CHILD WELFARE ASSISTANT, VALERIE S 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 09/23/2011 YATES DO, KARO K 735.0 HALLUX VALGUS (ACQUIRED) 09/23/2011 YATES DO, KARO K 735.4 HAMMER TOE (ACQUIRED) 09/23/2011 YATES DO, KARO K 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 09/23/2011 SALLY CHILD WELFARE ASSISTANT, VALERIE S 735.0 HALLUX VALGUS (ACQUIRED) 09/23/2011 SALLY CHILD WELFARE ASSISTANT, VALERIE S 735.4 HAMMER TOE (ACQUIRED) 09/23/2011 SALLY CHILD WELFARE ASSISTANT, VALERIE S 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 09/23/2011 YATES DO, KARO K 735.0 HALLUX VALGUS (ACQUIRED) 09/23/2011 YATES DO, KARO K 735.4 HAMMER TOE (ACQUIRED) 09/23/2011 YATES DO, KARO K 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 09/23/2011 SALLY CHILD WELFARE ASSISTANT, VALERIE S 735.0 HALLUX VALGUS (ACQUIRED) 09/23/2011 SALLY CHILD WELFARE ASSISTANT, VALERIE S 735.4 HAMMER TOE (ACQUIRED) 09/23/2011 SALLY CHILD WELFARE ASSISTANT, VALERIE S 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 09/23/2011 SALLY CHILD WELFARE ASSISTANT, VALERIE S 735.0 HALLUX VALGUS (ACQUIRED) 09/23/2011 SALLY CHILD WELFARE ASSISTANT, VALERIE S 735.4 HAMMER TOE (ACQUIRED) 09/23/2011 SALLY CHILD WELFARE ASSISTANT, VALERIE S 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 09/23/2011 SALLY CHILD WELFARE ASSISTANT, VALERIE S 735.0 HALLUX VALGUS (ACQUIRED) 09/23/2011 SALLY CHILD WELFARE ASSISTANT, VALERIE S 735.4 HAMMER TOE (ACQUIRED) 09/23/2011 SALLY CHILD WELFARE ASSISTANT, VALERIE S 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 09/23/2011 YATES DO, KARO K 735.0 HALLUX VALGUS (ACQUIRED) 09/23/2011 YATES DO, KARO K 735.4 HAMMER TOE (ACQUIRED) 09/23/2011 YATES DO, KARO K 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 09/23/2011 SALLY CHILD WELFARE ASSISTANT, VALERIE S 735.0 HALLUX VALGUS (ACQUIRED) 09/23/2011 SALLY CHILD WELFARE ASSISTANT, VALERIE S 735.4 HAMMER TOE (ACQUIRED) 09/23/2011 SALLY CHILD WELFARE ASSISTANT, VALERIE S 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 11/18/2011 YATES DO, KARO K 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 11/18/2011 YATES DO, KARO K 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 11/18/2011 ZORAIDA ESPAÑA APRN 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 11/18/2011 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 11/18/2011 SALLY CHILD WELFARE ASSISTANT, VALERIE S 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 11/18/2011 YATES DO, KARO K 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 11/18/2011 SALLY CHILD WELFARE ASSISTANT, VALERIE S 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 11/18/2011 SALLY CHILD WELFARE ASSISTANT, VALERIE S 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 11/18/2011 YATES DO, KARO K 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 11/18/2011 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 11/18/2011 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 11/18/2011 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 11/18/2011 MICHELLE CAMARGO MD 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 11/18/2011 SALLY CHILD WELFARE ASSISTANT, VALERIE S 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 11/18/2011 SALLY CHILD WELFARE ASSISTANT, VALERIE S 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 11/18/2011 YATES DO, KARO K 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 11/18/2011 SALLY CHILD WELFARE ASSISTANT, VALERIE S 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 11/18/2011 YATES DO, KARO K 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 11/18/2011 SALLY CHILD WELFARE ASSISTANT, VALERIE S 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 11/18/2011 SALLY CHILD WELFARE ASSISTANT, VALERIE S 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 11/18/2011 SALLY CHILD WELFARE ASSISTANT, VALERIE S 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 11/18/2011 SALLY CHILD WELFARE ASSISTANT, VALERIE S 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 11/18/2011 SALLY CHILD WELFARE ASSISTANT, VALERIE S 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 11/18/2011 SALLY CHILD WELFARE ASSISTANT, VALERIE S 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 11/18/2011 SALLY CHILD WELFARE ASSISTANT, VALERIE S 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 11/18/2011 YATES DO, KARO K 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 11/18/2011 SALLY CHILD WELFARE ASSISTANT, VALERIE S 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 11/18/2011 YATES DO, KARO K 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 11/18/2011 SALLY CHILD WELFARE ASSISTANT, VALERIE S 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 11/18/2011 SALLY CHILD WELFARE ASSISTANT, VALERIE S 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 11/18/2011 SALLY CHILD WELFARE ASSISTANT, VALERIE S 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 11/18/2011 YATES DO, KARO K 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 11/18/2011 SALLY CHILD WELFARE ASSISTANT, VALERIE S 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 12/05/2011 Ot 789.00 ABDOMINAL PAIN, UNSPECIFIED SITE 01/20/2012 YATES DO, KARO K 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 01/20/2012 YATES DO, KARO K 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 01/20/2012 ZORAIDA ESPAÑA APRN 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 01/20/2012 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 01/20/2012 SALLY RIVERA, VALERIE S 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 01/20/2012 YATES DO, KARO K 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 01/20/2012 YATES DO, KARO K 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 01/20/2012 SALLY RIVERA, VALERIE S 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 01/20/2012 SALLY RIVERA VALERIE S 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 01/20/2012 SALLY CHILD WELFARE ASSISTANT, VALERIE S 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 01/20/2012 SALLY CHILD WELFARE ASSISTANT, VALERIE S 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 01/20/2012 SALLY CHILD WELFARE ASSISTANT, VALERIE S 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 01/20/2012 SALLY CHILD WELFARE ASSISTANT, VALERIE S 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 01/20/2012 SALLY CHILD WELFARE ASSISTANT, VALERIE S 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 01/20/2012 YATES DOHALEYA K 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 01/20/2012 SALLY CHILD WELFARE ASSISTANT, VALERIE S 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 01/20/2012 YATES DO, KARO K 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 01/20/2012 SALLY CHILD WELFARE ASSISTANT, VALERIE S 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 01/20/2012 SALLY CHILD WELFARE ASSISTANT, VALERIE S 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 01/20/2012 SALLY CHILD WELFARE ASSISTANT, VALERIE S 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 01/20/2012 YATES DOHALEYA K 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 01/20/2012 SALLY CHILD WELFARE ASSISTANT, VALERIE S 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 02/09/2012 KARO YATES DO K V03.82 PPV23 (PNEUMOVAX) DX 02/09/2012 YATES KARO RAMIREZ K V03.82 PPV23 (PNEUMOVAX) DX 02/09/2012 ZORAIDA ESPAÑA APRN V03.82 PPV23 (PNEUMOVAX) DX 02/09/2012 V03.82 PPV23 (PNEUMOVAX) DX 02/09/2012 VALERIE ZAVALA APRN S V03.82 PPV23 (PNEUMOVAX) DX 02/09/2012 KARO YATES DO K V03.82 PPV23 (PNEUMOVAX) DX 02/09/2012 VALERIE ZAVALA APRN S V03.82 PPV23 (PNEUMOVAX) DX 02/09/2012 VALERIE ZAVALA APRN S V03.82 PPV23 (PNEUMOVAX) DX 02/09/2012 KARO YATES DO V03.82 PPV23 (PNEUMOVAX) DX 02/09/2012 V03.82 PPV23 (PNEUMOVAX) DX 02/09/2012 V03.82 PPV23 (PNEUMOVAX) DX 02/09/2012 V03.82 PPV23 (PNEUMOVAX) DX 02/09/2012 MICHELLE CAMARGO MD V03.82 PPV23 (PNEUMOVAX) DX 02/09/2012 VALERIE ZAVALA APRN S V03.82 PPV23 (PNEUMOVAX) DX 02/09/2012 ADRIAN ZAVALA APRNA S V03.82 PPV23 (PNEUMOVAX) DX 02/09/2012 YATES DO, KARO K V03.82 PPV23 (PNEUMOVAX) DX 02/09/2012 ADRIAN ZAVALA APRNA S V03.82 PPV23 (PNEUMOVAX) DX 02/09/2012 YATES DO, KARO K V03.82 PPV23 (PNEUMOVAX) DX 02/09/2012 ADRIAN ZAVALA APRNA S V03.82 PPV23 (PNEUMOVAX) DX 02/09/2012 ADRIAN ZAVALA APRNA S V03.82 PPV23 (PNEUMOVAX) DX 02/09/2012 ADRIAN ZAVALA APRNA S V03.82 PPV23 (PNEUMOVAX) DX 02/09/2012 SERINA ZAVALA APRNNDA S V03.82 PPV23 (PNEUMOVAX) DX 02/09/2012 SERINA ZAVALA APRNNDA S V03.82 PPV23 (PNEUMOVAX) DX 02/09/2012 ADRIAN ZAVALA APRNA S V03.82 PPV23 (PNEUMOVAX) DX 02/09/2012 SERINA ZAVALA APRNNDA S V03.82 PPV23 (PNEUMOVAX) DX 02/09/2012 YATES DO, KARO K V03.82 PPV23 (PNEUMOVAX) DX 02/09/2012 SERINA ZAVALA APRNNDA S V03.82 PPV23 (PNEUMOVAX) DX 02/09/2012 YATES DO, KARO K V03.82 PPV23 (PNEUMOVAX) DX 02/09/2012 ADRIAN ZAVALA APRNA S V03.82 PPV23 (PNEUMOVAX) DX 02/09/2012 ADRIAN ZAVALA APRNA S V03.82 PPV23 (PNEUMOVAX) DX 02/09/2012 VALERIE ZAVALA APRN S V03.82 PPV23 (PNEUMOVAX) DX 02/09/2012 KARO YATES DO K V03.82 PPV23 (PNEUMOVAX) DX 02/09/2012 VALERIE ZAVALA APRN S V03.82 PPV23 (PNEUMOVAX) DX 02/14/2012 KARO YATES DO V70.0 ROUTINE GENERAL MEDICAL EXAMINATION AT A HEALTH CARE FACILITY 02/14/2012 KARO YATES DO K V70.0 ROUTINE GENERAL MEDICAL EXAMINATION AT A HEALTH CARE FACILITY 02/14/2012 ZORAIDA ESPAÑA APRN V70.0 ROUTINE GENERAL MEDICAL EXAMINATION AT A HEALTH CARE FACILITY 02/14/2012 V70.0 ROUTINE GENERAL MEDICAL EXAMINATION AT A HEALTH CARE FACILITY 02/14/2012 VALERIE ZAVALA APRN S V70.0 ROUTINE GENERAL MEDICAL EXAMINATION AT A HEALTH CARE FACILITY 02/14/2012 KARO YATES DO V70.0 ROUTINE GENERAL MEDICAL EXAMINATION AT A HEALTH CARE FACILITY 02/14/2012 VALERIE ZAVALA APRN S V70.0 ROUTINE GENERAL MEDICAL EXAMINATION AT A HEALTH CARE FACILITY 02/14/2012 VALERIE ZAVALA APRN S V70.0 ROUTINE GENERAL MEDICAL EXAMINATION AT A HEALTH CARE FACILITY 02/14/2012 KARO YATES DO V70.0 ROUTINE GENERAL MEDICAL EXAMINATION AT A HEALTH CARE FACILITY 02/14/2012 V70.0 ROUTINE GENERAL MEDICAL EXAMINATION AT A HEALTH CARE FACILITY 02/14/2012 V70.0 ROUTINE GENERAL MEDICAL EXAMINATION AT A HEALTH CARE FACILITY 02/14/2012 V70.0 ROUTINE GENERAL MEDICAL EXAMINATION AT A HEALTH CARE FACILITY 02/14/2012 MICHELLE CAMARGO MD V70.0 ROUTINE GENERAL MEDICAL EXAMINATION AT A HEALTH CARE FACILITY 02/14/2012 VALERIE ZAVALA APRN S V70.0 ROUTINE GENERAL MEDICAL EXAMINATION AT A HEALTH CARE FACILITY 02/14/2012 VALERIE ZAVALA APRN S V70.0 ROUTINE GENERAL MEDICAL EXAMINATION AT A HEALTH CARE FACILITY 02/14/2012 KARO YATES DO V70.0 ROUTINE GENERAL MEDICAL EXAMINATION AT A HEALTH CARE FACILITY 02/14/2012 VALERIE ZAVALA APRN S V70.0 ROUTINE GENERAL MEDICAL EXAMINATION AT A HEALTH CARE FACILITY 02/14/2012 KARO YATES DO K V70.0 ROUTINE GENERAL MEDICAL EXAMINATION AT A HEALTH CARE FACILITY 02/14/2012 SALLY CHILD WELFARE ASSISTANTADRIAN TalleyA S V70.0 ROUTINE GENERAL MEDICAL EXAMINATION AT A HEALTH CARE FACILITY 02/14/2012 SALLY CHILD WELFARE ASSISTANTSERINA TalleyNDA S V70.0 ROUTINE GENERAL MEDICAL EXAMINATION AT A HEALTH CARE FACILITY 02/14/2012 SALLY CHILD WELFARE ASSISTANTSERINA TalleyNDA S V70.0 ROUTINE GENERAL MEDICAL EXAMINATION AT A HEALTH CARE FACILITY 02/14/2012 SALLY CHILD WELFARE ASSISTANTSERINA TalleyNDA S V70.0 ROUTINE GENERAL MEDICAL EXAMINATION AT A HEALTH CARE FACILITY 02/14/2012 SALLY CHILD WELFARE ASSISTANTSERINA TalleyNDA S V70.0 ROUTINE GENERAL MEDICAL EXAMINATION AT A HEALTH CARE FACILITY 02/14/2012 ADRIAN ZAVALA APRNA S V70.0 ROUTINE GENERAL MEDICAL EXAMINATION AT A HEALTH CARE FACILITY 02/14/2012 SERINA ZAVALA APRNNDA S V70.0 ROUTINE GENERAL MEDICAL EXAMINATION AT A HEALTH CARE FACILITY 02/14/2012 KARO YATES DO K V70.0 ROUTINE GENERAL MEDICAL EXAMINATION AT A HEALTH CARE FACILITY 02/14/2012 ADRIAN ZAVALA APRNA S V70.0 ROUTINE GENERAL MEDICAL EXAMINATION AT A HEALTH CARE FACILITY 02/14/2012 KARO YATES DO K V70.0 ROUTINE GENERAL MEDICAL EXAMINATION AT A HEALTH CARE FACILITY 02/14/2012 SERNIA ZAVALA APRNNDA S V70.0 ROUTINE GENERAL MEDICAL EXAMINATION AT A HEALTH CARE FACILITY 02/14/2012 SERINA ZAVALA APRNNDA S V70.0 ROUTINE GENERAL MEDICAL EXAMINATION AT A HEALTH CARE FACILITY 02/14/2012 ADRIAN ZAVALA APRNA S V70.0 ROUTINE GENERAL MEDICAL EXAMINATION AT A HEALTH CARE FACILITY 02/14/2012 KARO YATES DO K V70.0 ROUTINE GENERAL MEDICAL EXAMINATION AT A HEALTH CARE FACILITY 02/14/2012 ADRIAN ZAVALA APRNA S V70.0 ROUTINE GENERAL MEDICAL EXAMINATION AT A HEALTH CARE FACILITY 02/20/2012 Ot 401.9 HYPERTENSION NOS 02/20/2012 Ot 733.99 BONE CARTILAGE DIS NEC 02/20/2012 Ot 735.0 HALLUX VALGUS 02/20/2012 Ot 735.4 OTHER HAMMER TOE 02/20/2012 Ot V58.69 OTH MED,LT,CURRENT USE 03/16/2012 YATES DO, KARO K 719.07 EDEMA FOOT 03/16/2012 YATES DO, KARO K 726.90 CAPSULITIS 03/16/2012 YATES DO, KARO K 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 03/16/2012 YATES DO, KARO K 719.07 EDEMA FOOT 03/16/2012 YATES DO, KARO K 726.90 CAPSULITIS 03/16/2012 YATES DO, KARO K 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 03/16/2012 ESPAÑA CHILD WELFARE ASSISTANT, ZORAIDA R 719.07 EDEMA FOOT 03/16/2012 ESPAÑA CHILD WELFARE ASSISTANT, ZORAIDA R 726.90 CAPSULITIS 03/16/2012 ESPAÑA CHILD WELFARE ASSISTANT, ZORAIDA R 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 03/16/2012 719.07 EDEMA FOOT 03/16/2012 726.90 CAPSULITIS 03/16/2012 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 03/16/2012 SALLY CHILD WELFARE ASSISTANT, VALERIE S 719.07 EDEMA FOOT 03/16/2012 SALLY CHILD WELFARE ASSISTANT, VALERIE S 726.90 CAPSULITIS 03/16/2012 SALLY CHILD WELFARE ASSISTANT, VALERIE S 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 03/16/2012 YATES DO, KARO K 719.07 EDEMA FOOT 03/16/2012 YATES DO, KARO K 726.90 CAPSULITIS 03/16/2012 YATES DO, KARO K 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 03/16/2012 SALLY CHILD WELFARE ASSISTANT, VALERIE S 719.07 EDEMA FOOT 03/16/2012 SALLY CHILD WELFARE ASSISTANT, VALERIE S 726.90 CAPSULITIS 03/16/2012 SALLY CHILD WELFARE ASSISTANT, VALERIE S 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 03/16/2012 SALLY CHILD WELFARE ASSISTANT, VALERIE S 719.07 EDEMA FOOT 03/16/2012 SALLY CHILD WELFARE ASSISTANT, VALERIE S 726.90 CAPSULITIS 03/16/2012 SALLY CHILD WELFARE ASSISTANT, VALERIE S 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 03/16/2012 YATES DO, KARO K 719.07 EDEMA FOOT 03/16/2012 YATES DO, KARO K 726.90 CAPSULITIS 03/16/2012 YATES DO, KARO K 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 03/16/2012 719.07 EDEMA FOOT 03/16/2012 726.90 CAPSULITIS 03/16/2012 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 03/16/2012 719.07 EDEMA FOOT 03/16/2012 726.90 CAPSULITIS 03/16/2012 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 03/16/2012 719.07 EDEMA FOOT 03/16/2012 726.90 CAPSULITIS 03/16/2012 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 03/16/2012 MICHELLE CAMARGO MD 719.07 EDEMA FOOT 03/16/2012 MICHELLE CAMARGO MD 726.90 CAPSULITIS 03/16/2012 MICHELLE CAMARGO MD 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 03/16/2012 SALLY RIVERA VALERIE S 719.07 EDEMA FOOT 03/16/2012 SERINA ZAVALA APRNNDA S 726.90 CAPSULITIS 03/16/2012 SALLY RIVERA VALERIE S 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 03/16/2012 SALLY RIVERA VALERIE S 719.07 EDEMA FOOT 03/16/2012 SALLY RIVERA VALERIE S 726.90 CAPSULITIS 03/16/2012 SALLY RIVERA VALERIE S 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 03/16/2012 YATES DO KARO K 719.07 EDEMA FOOT 03/16/2012 YATES DO KARO K 726.90 CAPSULITIS 03/16/2012 YATES DO KARO K 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 03/16/2012 SALLY RIVERA VALERIE S 719.07 EDEMA FOOT 03/16/2012 SALLY RIVERA, VALERIE S 726.90 CAPSULITIS 03/16/2012 SALLY RIVERA VALERIE S 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 03/16/2012 YATES DO KARO K 719.07 EDEMA FOOT 03/16/2012 YATES DO, KARO K 726.90 CAPSULITIS 03/16/2012 YATES DO, KARO K 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 03/16/2012 SALLY CHILD WELFARE ASSISTANT, VALERIE S 719.07 EDEMA FOOT 03/16/2012 SALLY CHILD WELFARE ASSISTANT, VALERIE S 726.90 CAPSULITIS 03/16/2012 SALLY CHILD WELFARE ASSISTANT, VALERIE S 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 03/16/2012 SALLY CHILD WELFARE ASSISTANT, VALERIE S 719.07 EDEMA FOOT 03/16/2012 SALLY CHILD WELFARE ASSISTANT, VALERIE S 726.90 CAPSULITIS 03/16/2012 SALLY CHILD WELFARE ASSISTANT, VALERIE S 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 03/16/2012 SALLY CHILD WELFARE ASSISTANT, VALERIE S 719.07 EDEMA FOOT 03/16/2012 SALLY CHILD WELFARE ASSISTANT, VALERIE S 726.90 CAPSULITIS 03/16/2012 SALLY CHILD WELFARE ASSISTANT, VALERIE S 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 03/16/2012 SALLY CHILD WELFARE ASSISTANT, VALERIE S 719.07 EDEMA FOOT 03/16/2012 SALLY CHILD WELFARE ASSISTANT, VALERIE S 726.90 CAPSULITIS 03/16/2012 SALLY CHILD WELFARE ASSISTANT, VALERIE S 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 03/16/2012 SALLY CHILD WELFARE ASSISTANT, VALERIE S 719.07 EDEMA FOOT 03/16/2012 SALLY CHILD WELFARE ASSISTANT, VALERIE S 726.90 CAPSULITIS 03/16/2012 SALLY CHILD WELFARE ASSISTANT, VALERIE S 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 03/16/2012 SALLY CHILD WELFARE ASSISTANT, VALERIE S 719.07 EDEMA FOOT 03/16/2012 SALLY CHILD WELFARE ASSISTANT, VALERIE S 726.90 CAPSULITIS 03/16/2012 SALLY CHILD WELFARE ASSISTANT, VALERIE S 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 03/16/2012 SALLY CHILD WELFARE ASSISTANT, VALERIE S 719.07 EDEMA FOOT 03/16/2012 SALLY CHILD WELFARE ASSISTANT, VALERIE S 726.90 CAPSULITIS 03/16/2012 SALLY CHILD WELFARE ASSISTANT, VALERIE S 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 03/16/2012 YATES DO, KARO K 719.07 EDEMA FOOT 03/16/2012 YATES DO, KARO K 726.90 CAPSULITIS 03/16/2012 YATES DO, KARO K 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 03/16/2012 SALLY CHILD WELFARE ASSISTANT, VALERIE S 719.07 EDEMA FOOT 03/16/2012 SALLY CHILD WELFARE ASSISTANT, VALERIE S 726.90 CAPSULITIS 03/16/2012 SALLY CHILD WELFARE ASSISTANT, VALERIE S 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 03/16/2012 YATES DO, KARO K 719.07 EDEMA FOOT 03/16/2012 YATES DO, KARO K 726.90 CAPSULITIS 03/16/2012 YATES DO, KARO K 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 03/16/2012 SALLY CHILD WELFARE ASSISTANT, VALERIE S 719.07 EDEMA FOOT 03/16/2012 SALLY CHILD WELFARE ASSISTANT, VALERIE S 726.90 CAPSULITIS 03/16/2012 SALLY CHILD WELFARE ASSISTANT, VALERIE S 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 03/16/2012 SALLY CHILD WELFARE ASSISTANT, VALERIE S 719.07 EDEMA FOOT 03/16/2012 SALLY CHILD WELFARE ASSISTANT, VALERIE S 726.90 CAPSULITIS 03/16/2012 SALLY CHILD WELFARE ASSISTANT, VALERIE S 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 03/16/2012 SALLY CHILD WELFARE ASSISTANT, VALERIE S 719.07 EDEMA FOOT 03/16/2012 SALLY CHILD WELFARE ASSISTANT, VALERIE S 726.90 CAPSULITIS 03/16/2012 SALLY CHILD WELFARE ASSISTANT, VALERIE S 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 03/16/2012 YATES DO, KARO K 719.07 EDEMA FOOT 03/16/2012 YATES DO, KARO K 726.90 CAPSULITIS 03/16/2012 YATES DO, KARO K 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 03/16/2012 SALLY CHILD WELFARE ASSISTANT, VALERIE S 719.07 EDEMA FOOT 03/16/2012 SALLY CHILD WELFARE ASSISTANT, VALERIE S 726.90 CAPSULITIS 03/16/2012 SALLY CHILD WELFARE ASSISTANT, VALERIE S 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 03/30/2012 YATES DO KARO K V45.89 POSTSURGICAL STATUS 03/30/2012 YATES DO KARO K V45.89 POSTSURGICAL STATUS 03/30/2012 ESPAÑA CHILD WELFARE ASSISTANT, ZORAIDA R V45.89 POSTSURGICAL STATUS 03/30/2012 V45.89 POSTSURGICAL STATUS 03/30/2012 SALLY CHILD WELFARE ASSISTANT, VALERIE S V45.89 POSTSURGICAL STATUS 03/30/2012 YATES DO KARO K V45.89 POSTSURGICAL STATUS 03/30/2012 SALLY CHILD WELFARE ASSISTANT, VALERIE S V45.89 POSTSURGICAL STATUS 03/30/2012 SALLY CHILD WELFARE ASSISTANT, VALERIE S V45.89 POSTSURGICAL STATUS 03/30/2012 YATES DO KARO K V45.89 POSTSURGICAL STATUS 03/30/2012 V45.89 POSTSURGICAL STATUS 03/30/2012 V45.89 POSTSURGICAL STATUS 03/30/2012 V45.89 POSTSURGICAL STATUS 03/30/2012 MICHELLE CAMARGO MD V45.89 POSTSURGICAL STATUS 03/30/2012 SALLY CHILD WELFARE ASSISTANT, VALERIE S V45.89 POSTSURGICAL STATUS 03/30/2012 SALLY CHILD WELFARE ASSISTANT, VALERIE S V45.89 POSTSURGICAL STATUS 03/30/2012 YATES DO KARO K V45.89 POSTSURGICAL STATUS 03/30/2012 SALLY CHILD WELFARE ASSISTANT, VALERIE S V45.89 POSTSURGICAL STATUS 03/30/2012 YATES DO KARO K V45.89 POSTSURGICAL STATUS 03/30/2012 SALLY CHILD WELFARE ASSISTANT, VALERIE S V45.89 POSTSURGICAL STATUS 03/30/2012 SALLY CHILD WELFARE ASSISTANT, VALERIE S V45.89 POSTSURGICAL STATUS 03/30/2012 SALLY CHILD WELFARE ASSISTANT, VALERIE S V45.89 POSTSURGICAL STATUS 03/30/2012 SALLY CHILD WELFARE ASSISTANT, VALERIE S V45.89 POSTSURGICAL STATUS 03/30/2012 SALLY CHILD WELFARE ASSISTANT, VALERIE S V45.89 POSTSURGICAL STATUS 03/30/2012 SALLY CHILD WELFARE ASSISTANT, VALERIE S V45.89 POSTSURGICAL STATUS 03/30/2012 SALLY CHILD WELFARE ASSISTANT, VALERIE S V45.89 POSTSURGICAL STATUS 03/30/2012 YATES DO KARO K V45.89 POSTSURGICAL STATUS 03/30/2012 SALLY CHILD WELFARE ASSISTANT, VALERIE S V45.89 POSTSURGICAL STATUS 03/30/2012 YATES DO KARO K V45.89 POSTSURGICAL STATUS 03/30/2012 SALLY CHILD WELFARE ASSISTANT, VALERIE S V45.89 POSTSURGICAL STATUS 03/30/2012 SALLY CHILD WELFARE ASSISTANT, VALERIE S V45.89 POSTSURGICAL STATUS 03/30/2012 SALLY CHILD WELFARE ASSISTANT, VALERIE S V45.89 POSTSURGICAL STATUS 03/30/2012 YATES DO, KARO K V45.89 POSTSURGICAL STATUS 03/30/2012 SALLY CHILD WELFARE ASSISTANT, VALERIE S V45.89 POSTSURGICAL STATUS 05/29/2012 TACO CHILD WELFARE ASSISTANT, ZORAIDA R 786.2 cough 05/29/2012 786.2 cough 05/29/2012 SALLY CHILD WELFARE ASSISTANT, VALERIE S 786.2 cough 05/29/2012 YATES DO, KARO K 786.2 cough 05/29/2012 SALLY CHILD WELFARE ASSISTANT, VALERIE S 786.2 cough 05/29/2012 SALLY CHILD WELFARE ASSISTANT, VALERIE S 786.2 cough 05/29/2012 YATES DO, KARO K 786.2 cough 05/29/2012 786.2 cough 05/29/2012 786.2 COUGH 05/29/2012 786.2 COUGH 05/29/2012 MARY JO ABRAMS, MICHELLE 786.2 COUGH 05/29/2012 SALLY CHILD WELFARE ASSISTANT, VALERIE S 786.2 COUGH 05/29/2012 SALLY CHILD WELFARE ASSISTANT, VALERIE S 786.2 COUGH 05/29/2012 YATES DO, KARO K 786.2 COUGH 05/29/2012 SALLY CHILD WELFARE ASSISTANT, VALERIE S 786.2 COUGH 05/29/2012 YATES DO, KARO K 786.2 COUGH 05/29/2012 SALLY CHILD WELFARE ASSISTANT, VALERIE S 786.2 COUGH 05/29/2012 SALLY CHILD WELFARE ASSISTANT, VALERIE S 786.2 COUGH 05/29/2012 SALLY CHILD WELFARE ASSISTANT, VALERIE S 786.2 COUGH 05/29/2012 SALLY CHILD WELFARE ASSISTANT, VALERIE S 786.2 COUGH 05/29/2012 SALLY CHILD WELFARE ASSISTANT, VALERIE S 786.2 COUGH 05/29/2012 SALLY CHILD WELFARE ASSISTANT, VALERIE S 786.2 COUGH 05/29/2012 SALLY CHILD WELFARE ASSISTANT, VALERIE S 786.2 COUGH 05/29/2012 YATES DO, KARO K 786.2 COUGH 05/29/2012 SALLY CHILD WELFARE ASSISTANT, VALERIE S 786.2 COUGH 05/29/2012 YATES DO, KARO K 786.2 COUGH 05/29/2012 SALLY CHILD WELFARE ASSISTANT, VALERIE S 786.2 COUGH 05/29/2012 SALLY CHILD WELFARE ASSISTANT, VALERIE S 786.2 COUGH 05/29/2012 SALLY CHILD WELFARE ASSISTANT, VALERIE S 786.2 COUGH 05/29/2012 YATES DO, KARO K 786.2 COUGH 05/29/2012 SALLY CHILD WELFARE ASSISTANT, VALERIE S 786.2 COUGH 06/05/2012 461.9 SINUSITIS ACUTE 06/05/2012 SALLY CHILD WELFARE ASSISTANT, VALERIE S 461.9 SINUSITIS ACUTE 06/05/2012 YATES DO, KARO K 461.9 SINUSITIS ACUTE 06/05/2012 SALLY CHILD WELFARE ASSISTANT, VALERIE S 461.9 SINUSITIS ACUTE 06/05/2012 SALLY CHILD WELFARE ASSISTANT, VALERIE S 461.9 SINUSITIS ACUTE 06/05/2012 YATES DO KARO K 461.9 SINUSITIS ACUTE 06/05/2012 461.9 SINUSITIS ACUTE 06/05/2012 461.9 SINUSITIS ACUTE 06/05/2012 461.9 SINUSITIS ACUTE 06/05/2012 MARY JO ABRAMS, MICHELLE 461.9 SINUSITIS ACUTE 06/05/2012 SALLY CHILD WELFARE ASSISTANT, VALERIE S 461.9 SINUSITIS ACUTE 06/05/2012 SALLY CHILD WELFARE ASSISTANT, VALERIE S 461.9 SINUSITIS ACUTE 06/05/2012 YATES DO KARO K 461.9 SINUSITIS ACUTE 06/05/2012 SALLY CHILD WELFARE ASSISTANT, VALERIE S 461.9 SINUSITIS ACUTE 06/05/2012 YATES DO KARO K 461.9 SINUSITIS ACUTE 06/05/2012 SALLY CHILD WELFARE ASSISTANT, VALERIE S 461.9 SINUSITIS ACUTE 06/05/2012 SALLY CHILD WELFARE ASSISTANT, VALERIE S 461.9 SINUSITIS ACUTE 06/05/2012 SALLY CHILD WELFARE ASSISTANT, VALERIE S 461.9 SINUSITIS ACUTE 06/05/2012 SALLY CHILD WELFARE ASSISTANT, VALERIE S 461.9 SINUSITIS ACUTE 06/05/2012 SALLY CHILD WELFARE ASSISTANT, VALERIE S 461.9 SINUSITIS ACUTE 06/05/2012 SALLY CHILD WELFARE ASSISTANT, VALERIE S 461.9 SINUSITIS ACUTE 06/05/2012 SALLY CHILD WELFARE ASSISTANT, VALERIE S 461.9 SINUSITIS ACUTE 06/05/2012 HALEY YATES DOA K 461.9 SINUSITIS ACUTE 06/05/2012 SALLY CHILD WELFARE ASSISTANT, VALERIE S 461.9 SINUSITIS ACUTE 06/05/2012 HALEY YATES DOA K 461.9 SINUSITIS ACUTE 06/05/2012 SALLY CHILD WELFARE ASSISTANT, VALERIE S 461.9 SINUSITIS ACUTE 06/05/2012 SALLY CHILD WELFARE ASSISTANT, VALERIE S 461.9 SINUSITIS ACUTE 06/05/2012 SALLY CHILD WELFARE ASSISTANT, VALERIE S 461.9 SINUSITIS ACUTE 06/05/2012 HALEY YATES DOA K 461.9 SINUSITIS ACUTE 06/05/2012 SALLY CHILD WELFARE ASSISTANT, VALERIE S 461.9 SINUSITIS ACUTE 07/04/2012 SALLY CHILD WELFARE ASSISTANT, VALERIE S 535.50 UNSPECIFIED GASTRITIS AND GASTRODUODENITIS (WITHOUT HEMORRHAGE) 07/04/2012 SALLY CHILD WELFARE ASSISTANT, VALERIE S 535.50 UNSPECIFIED GASTRITIS AND GASTRODUODENITIS (WITHOUT HEMORRHAGE) 07/04/2012 KARO YATES DO 535.50 UNSPECIFIED GASTRITIS AND GASTRODUODENITIS ( WITHOUT HEMORRHAGE) 07/04/2012 535.50 UNSPECIFIED GASTRITIS AND GASTRODUODENITIS (WITHOUT HEMORRHAGE) 07/04/2012 535.50 UNSPECIFIED GASTRITIS AND GASTRODUODENITIS (WITHOUT HEMORRHAGE) 07/04/2012 535.50 UNSPECIFIED GASTRITIS AND GASTRODUODENITIS (WITHOUT HEMORRHAGE) 07/04/2012 MICHELLE CAMARGO MD 535.50 UNSPECIFIED GASTRITIS AND GASTRODUODENITIS ( WITHOUT HEMORRHAGE) 07/04/2012 SALLY CHILD WELFARE ASSISTANT, VALERIE S 535.50 UNSPECIFIED GASTRITIS AND GASTRODUODENITIS (WITHOUT HEMORRHAGE) 07/04/2012 SALLY CHILD WELFARE ASSISTANT, VALERIE S 535.50 UNSPECIFIED GASTRITIS AND GASTRODUODENITIS (WITHOUT HEMORRHAGE) 07/04/2012 KARO YATES DO 535.50 UNSPECIFIED GASTRITIS AND GASTRODUODENITIS ( WITHOUT HEMORRHAGE) 07/04/2012 SALLY CHILD WELFARE ASSISTANT, VALERIE S 535.50 UNSPECIFIED GASTRITIS AND GASTRODUODENITIS (WITHOUT HEMORRHAGE) 07/04/2012 YATES DO KARO K 535.50 UNSPECIFIED GASTRITIS AND GASTRODUODENITIS ( WITHOUT HEMORRHAGE) 07/04/2012 SALLY CHILD WELFARE ASSISTANT, VALERIE S 535.50 UNSPECIFIED GASTRITIS AND GASTRODUODENITIS (WITHOUT HEMORRHAGE) 07/04/2012 SALLY CHILD WELFARE ASSISTANT, VALERIE S 535.50 UNSPECIFIED GASTRITIS AND GASTRODUODENITIS (WITHOUT HEMORRHAGE) 07/04/2012 SALLY CHILD WELFARE ASSISTANT, VALERIE S 535.50 UNSPECIFIED GASTRITIS AND GASTRODUODENITIS (WITHOUT HEMORRHAGE) 07/04/2012 SALLY CHILD WELFARE ASSISTANT, VALERIE S 535.50 UNSPECIFIED GASTRITIS AND GASTRODUODENITIS (WITHOUT HEMORRHAGE) 07/04/2012 SALLY CHILD WELFARE ASSISTANT, VALERIE S 535.50 UNSPECIFIED GASTRITIS AND GASTRODUODENITIS (WITHOUT HEMORRHAGE) 07/04/2012 SALLY CHILD WELFARE ASSISTANT, VALERIE S 535.50 UNSPECIFIED GASTRITIS AND GASTRODUODENITIS (WITHOUT HEMORRHAGE) 07/04/2012 SALLY CHILD WELFARE ASSISTANT, VALERIE S 535.50 UNSPECIFIED GASTRITIS AND GASTRODUODENITIS (WITHOUT HEMORRHAGE) 07/04/2012 YATES DO KARO K 535.50 UNSPECIFIED GASTRITIS AND GASTRODUODENITIS ( WITHOUT HEMORRHAGE) 07/04/2012 SALLY CHILD WELFARE ASSISTANT, VALERIE S 535.50 UNSPECIFIED GASTRITIS AND GASTRODUODENITIS (WITHOUT HEMORRHAGE) 07/04/2012 YATES DO KARO K 535.50 UNSPECIFIED GASTRITIS AND GASTRODUODENITIS ( WITHOUT HEMORRHAGE) 07/04/2012 SALLY CHILD WELFARE ASSISTANT, VALERIE S 535.50 UNSPECIFIED GASTRITIS AND GASTRODUODENITIS (WITHOUT HEMORRHAGE) 07/04/2012 SALLY CHILD WELFARE ASSISTANT, VALERIE S 535.50 UNSPECIFIED GASTRITIS AND GASTRODUODENITIS (WITHOUT HEMORRHAGE) 07/04/2012 SALLY CHILD WELFARE ASSISTANT, VALERIE S 535.50 UNSPECIFIED GASTRITIS AND GASTRODUODENITIS (WITHOUT HEMORRHAGE) 07/04/2012 YATES DO KARO K 535.50 UNSPECIFIED GASTRITIS AND GASTRODUODENITIS ( WITHOUT HEMORRHAGE) 07/04/2012 SALLY CHILD WELFARE ASSISTANT, VALERIE S 535.50 UNSPECIFIED GASTRITIS AND GASTRODUODENITIS (WITHOUT HEMORRHAGE) 07/30/2012 SALLY CHILD WELFARE ASSISTANT, VALERIE S 788.1 DYSURIA 07/30/2012 YATES DO, KARO K 788.1 DYSURIA 07/30/2012 788.1 DYSURIA 07/30/2012 788.1 DYSURIA 07/30/2012 788.1 DYSURIA 07/30/2012 MICHELLE CAMARGO MD 788.1 DYSURIA 07/30/2012 SALLY CHILD WELFARE ASSISTANT, VALERIE S 788.1 DYSURIA 07/30/2012 SALLY CHILD WELFARE ASSISTANT, VALERIE S 788.1 DYSURIA 07/30/2012 YATES DO, KARO K 788.1 DYSURIA 07/30/2012 SALLY CHILD WELFARE ASSISTANT, VALERIE S 788.1 DYSURIA 07/30/2012 YATES DO, KARO K 788.1 DYSURIA 07/30/2012 SALLY CHILD WELFARE ASSISTANT, VALERIE S 788.1 DYSURIA 07/30/2012 SALLY CHILD WELFARE ASSISTANT, VALERIE S 788.1 DYSURIA 07/30/2012 SALLY CHILD WELFARE ASSISTANT, VALERIE S 788.1 DYSURIA 07/30/2012 SALLY CHILD WELFARE ASSISTANT, VALERIE S 788.1 DYSURIA 07/30/2012 SALLY CHILD WELFARE ASSISTANT, VALERIE S 788.1 DYSURIA 07/30/2012 SALLY CHILD WELFARE ASSISTANT, VALERIE S 788.1 DYSURIA 07/30/2012 SALLY CHILD WELFARE ASSISTANT, VALERIE S 788.1 DYSURIA 07/30/2012 YATES DO, KARO K 788.1 DYSURIA 07/30/2012 SALLY CHILD WELFARE ASSISTANT, VALERIE S 788.1 DYSURIA 07/30/2012 YATES DO, KARO K 788.1 DYSURIA 07/30/2012 SALLY CHILD WELFARE ASSISTANT, VALERIE S 788.1 DYSURIA 07/30/2012 SALLY CHILD WELFARE ASSISTANT, VALERIE S 788.1 DYSURIA 07/30/2012 SALLY CHILD WELFARE ASSISTANT, VALERIE S 788.1 DYSURIA 07/30/2012 YATES DO, KARO K 788.1 DYSURIA 07/30/2012 SALLY CHILD WELFARE ASSISTANT, VALERIE S 788.1 DYSURIA 02/04/2013 MICHELLE CAMARGO MD 719.40 ARTHRAIGIA UNSPEC 02/04/2013 SALLY CHILD WELFARE ASSISTANT, VALERIE S 719.40 ARTHRAIGIA UNSPEC 02/04/2013 SALLY CHILD WELFARE ASSISTANT, VALERIE S 719.40 ARTHRAIGIA UNSPEC 02/04/2013 YATES DO, KARO K 719.40 ARTHRAIGIA UNSPEC 02/04/2013 SALLY CHILD WELFARE ASSISTANT, VLAERIE S 719.40 ARTHRAIGIA UNSPEC 02/04/2013 YATES DO, KARO K 719.40 ARTHRAIGIA UNSPEC 02/04/2013 SALLY CHILD WELFARE ASSISTANT, VALERIE S 719.40 ARTHRAIGIA UNSPEC 02/04/2013 SALLY CHILD WELFARE ASSISTANT, VALERIE S 719.40 ARTHRAIGIA UNSPEC 02/04/2013 SALLY CHILD WELFARE ASSISTANT, VALERIE S 719.40 ARTHRAIGIA UNSPEC 02/04/2013 SALLY CHILD WELFARE ASSISTANT, VALERIE S 719.40 ARTHRAIGIA UNSPEC 02/04/2013 SALLY CHILD WELFARE ASSISTANT, VALERIE S 719.40 ARTHRAIGIA UNSPEC 02/04/2013 SALLY CHILD WELFARE ASSISTANT, VALERIE S 719.40 ARTHRAIGIA UNSPEC 02/04/2013 SALLY CHILD WELFARE ASSISTANT, VALERIE S 719.40 ARTHRAIGIA UNSPEC 02/04/2013 YATES DO, KARO K 719.40 ARTHRAIGIA UNSPEC 02/04/2013 SALLY CHILD WELFARE ASSISTANT, VALERIE S 719.40 ARTHRAIGIA UNSPEC 02/04/2013 YATES DO, KARO K 719.40 ARTHRAIGIA UNSPEC 02/04/2013 SALLY CHILD WELFARE ASSISTANT, VALERIE S 719.40 ARTHRAIGIA UNSPEC 02/04/2013 SALLY CHILD WELFARE ASSISTANT, VALERIE S 719.40 ARTHRAIGIA UNSPEC 02/04/2013 SALLY CHILD WELFARE ASSISTANT, VALERIE S 719.40 ARTHRAIGIA UNSPEC 02/04/2013 YATES DO, KARO K 719.40 ARTHRAIGIA UNSPEC 02/04/2013 SALLY CHILD WELFARE ASSISTANT, VALERIE S 719.40 ARTHRAIGIA UNSPEC 04/02/2013 SALLY CHILD WELFARE ASSISTANT, VALERIE S 786.52 CHEST WALL PAIN 04/02/2013 YATES DO, KARO K 786.52 CHEST WALL PAIN 04/02/2013 SALLY CHILD WELFARE ASSISTANT, VALERIE S 786.52 CHEST WALL PAIN 04/02/2013 YATES DO, KARO K 786.52 CHEST WALL PAIN 04/02/2013 SALLY CHILD WELFARE ASSISTANT, VALERIE S 786.52 CHEST WALL PAIN 04/02/2013 SALLY CHILD WELFARE ASSISTANT, VALERIE S 786.52 CHEST WALL PAIN 04/02/2013 SALLY CHILD WELFARE ASSISTANT, VALERIE S 786.52 CHEST WALL PAIN 04/02/2013 SALLY CHILD WELFARE ASSISTANT, VALERIE S 786.52 CHEST WALL PAIN 04/02/2013 SALLY CHILD WELFARE ASSISTANT, VALERIE S 786.52 CHEST WALL PAIN 04/02/2013 SALLY CHILD WELFARE ASSISTANT, VALERIE S 786.52 CHEST WALL PAIN 04/02/2013 SALLY CHILD WELFARE ASSISTANT, VALERIE S 786.52 CHEST WALL PAIN 04/02/2013 YATES DO, KARO K 786.52 CHEST WALL PAIN 04/02/2013 SALLY CHILD WELFARE ASSISTANT, VALERIE S 786.52 CHEST WALL PAIN 04/02/2013 YATES DO, KARO K 786.52 CHEST WALL PAIN 04/02/2013 SALLY CHILD WELFARE ASSISTANT, VALERIE S 786.52 CHEST WALL PAIN 04/02/2013 SALLY CHILD WELFARE ASSISTANT, VALERIE S 786.52 CHEST WALL PAIN 04/02/2013 SALLY CHILD WELFARE ASSISTANT, VALERIE S 786.52 CHEST WALL PAIN 04/02/2013 YATES DO, KARO K 786.52 CHEST WALL PAIN 04/02/2013 SALLY CHILD WELFARE ASSISTANT, VALERIE S 786.52 CHEST WALL PAIN 04/06/2013 YATES DO, KARO K 053.9 HERPES ZOSTER (SHINGLES) 04/06/2013 YATES DO, KARO K 382.00 ACUTE OTITIS MEDIA (LEFT) 04/06/2013 SALLY CHILD WELFARE ASSISTANT, VALERIE S 053.9 HERPES ZOSTER (SHINGLES) 04/06/2013 SALLY CHILD WELFARE ASSISTANT, VALERIE S 382.00 ACUTE OTITIS MEDIA (LEFT) 04/06/2013 YATES DO, KARO K 053.9 HERPES ZOSTER (SHINGLES) 04/06/2013 YATES DO, KARO K 382.00 ACUTE OTITIS MEDIA (LEFT) 04/06/2013 SALLY CHILD WELFARE ASSISTANT, VALERIE S 053.9 HERPES ZOSTER (SHINGLES) 04/06/2013 SALLY CHILD WELFARE ASSISTANT, VALERIE S 382.00 ACUTE OTITIS MEDIA (LEFT) 04/06/2013 SALLY CHILD WELFARE ASSISTANT, VALERIE S 053.9 HERPES ZOSTER (SHINGLES) 04/06/2013 SALLY CHILD WELFARE ASSISTANT, VALERIE S 382.00 ACUTE OTITIS MEDIA (LEFT) 04/06/2013 SALLY CHILD WELFARE ASSISTANT, VALERIE S 053.9 HERPES ZOSTER (SHINGLES) 04/06/2013 SALLY CHILD WELFARE ASSISTANT, VALERIE S 382.00 ACUTE OTITIS MEDIA (LEFT) 04/06/2013 SALLY CHILD WELFARE ASSISTANT, VALERIE S 053.9 HERPES ZOSTER (SHINGLES) 04/06/2013 SALLY CHILD WELFARE ASSISTANT, VALERIE S 382.00 ACUTE OTITIS MEDIA (LEFT) 04/06/2013 SALLY CHILD WELFARE ASSISTANT, VALERIE S 053.9 HERPES ZOSTER (SHINGLES) 04/06/2013 SALLY CHILD WELFARE ASSISTANT, VALERIE S 382.00 ACUTE OTITIS MEDIA (LEFT) 04/06/2013 SALLY CHILD WELFARE ASSISTANT, VALERIE S 053.9 HERPES ZOSTER (SHINGLES) 04/06/2013 SALLY CHILD WELFARE ASSISTANT, VALERIE S 382.00 ACUTE OTITIS MEDIA (LEFT) 04/06/2013 SALLY CHILD WELFARE ASSISTANT, VALERIE S 053.9 HERPES ZOSTER (SHINGLES) 04/06/2013 SALLY CHILD WELFARE ASSISTANT, VALERIE S 382.00 ACUTE OTITIS MEDIA (LEFT) 04/06/2013 YATES DO, KARO K 053.9 HERPES ZOSTER (SHINGLES) 04/06/2013 YATES DO, KARO K 382.00 ACUTE OTITIS MEDIA (LEFT) 04/06/2013 SALLY CHILD WELFARE ASSISTANT, VALERIE S 053.9 HERPES ZOSTER (SHINGLES) 04/06/2013 SALLY CHILD WELFARE ASSISTANT, VALERIE S 382.00 ACUTE OTITIS MEDIA (LEFT) 04/06/2013 YATES DO, KARO K 053.9 HERPES ZOSTER (SHINGLES) 04/06/2013 YATES DO, KARO K 382.00 ACUTE OTITIS MEDIA (LEFT) 04/06/2013 SALLY CHILD WELFARE ASSISTANT, VALERIE S 053.9 HERPES ZOSTER (SHINGLES) 04/06/2013 SALLY CHILD WELFARE ASSISTANT, VALERIE S 382.00 ACUTE OTITIS MEDIA (LEFT) 04/06/2013 SALLY CHILD WELFARE ASSISTANT, VALERIE S 053.9 HERPES ZOSTER (SHINGLES) 04/06/2013 SALLY CHILD WELFARE ASSISTANT, VALERIE S 382.00 ACUTE OTITIS MEDIA (LEFT) 04/06/2013 SALLY CHILD WELFARE ASSISTANT, VALERIE S 053.9 HERPES ZOSTER (SHINGLES) 04/06/2013 SALLY CHILD WELFARE ASSISTANT, VALERIE S 382.00 ACUTE OTITIS MEDIA (LEFT) 04/06/2013 YATES DO, KARO K 053.9 HERPES ZOSTER (SHINGLES) 04/06/2013 YATES DO, KARO K 382.00 ACUTE OTITIS MEDIA (LEFT) 04/06/2013 SALLY CHILD WELFARE ASSISTANT, VALERIE S 053.9 HERPES ZOSTER (SHINGLES) 04/06/2013 SALLY CHILD WELFARE ASSISTANT, VALERIE S 382.00 ACUTE OTITIS MEDIA (LEFT) 04/10/2013 SALLY CHILD WELFARE ASSISTANT, VALERIE S 380.4 CERUMEN IMPACTION 04/10/2013 SALLY CHILD WELFARE ASSISTANT, VALERIE S V76.12 MAMMOGRAM SCREENING 04/10/2013 YATES DO, KARO K 380.4 CERUMEN IMPACTION 04/10/2013 YATES DO, KARO K V76.12 MAMMOGRAM SCREENING 04/10/2013 SALLY CHILD WELFARE ASSISTANT, VALERIE S 380.4 CERUMEN IMPACTION 04/10/2013 SALLY CHILD WELFARE ASSISTANT, VALERIE S V76.12 MAMMOGRAM SCREENING 04/10/2013 SALLY CHILD WELFARE ASSISTANT, VALERIE S 380.4 CERUMEN IMPACTION 04/10/2013 SALLY CHILD WELFARE ASSISTANT, VALERIE S V76.12 MAMMOGRAM SCREENING 04/10/2013 SALLY CHILD WELFARE ASSISTANT, VALERIE S 380.4 CERUMEN IMPACTION 04/10/2013 SALLY CHILD WELFARE ASSISTANT, VALERIE S V76.12 MAMMOGRAM SCREENING 04/10/2013 SALLY CHILD WELFARE ASSISTANT, VALERIE S 380.4 CERUMEN IMPACTION 04/10/2013 SALLY CHILD WELFARE ASSISTANT, VALERIE S V76.12 MAMMOGRAM SCREENING 04/10/2013 SALLY CHILD WELFARE ASSISTANT, VALERIE S 380.4 CERUMEN IMPACTION 04/10/2013 SALLY CHILD WELFARE ASSISTANT, VALERIE S V76.12 MAMMOGRAM SCREENING 04/10/2013 SALLY CHILD WELFARE ASSISTANT, VALERIE S 380.4 CERUMEN IMPACTION 04/10/2013 SALLY CHILD WELFARE ASSISTANT, VALERIE S V76.12 MAMMOGRAM SCREENING 04/10/2013 SALLY CHILD WELFARE ASSISTANT, VALERIE S 380.4 CERUMEN IMPACTION 04/10/2013 SALLY CHILD WELFARE ASSISTANT, VALERIE S V76.12 MAMMOGRAM SCREENING 04/10/2013 YATES DO, KARO K 380.4 CERUMEN IMPACTION 04/10/2013 YATES DO, KARO K V76.12 MAMMOGRAM SCREENING 04/10/2013 SALLY CHILD WELFARE ASSISTANT, VALERIE S 380.4 CERUMEN IMPACTION 04/10/2013 SALLY CHILD WELFARE ASSISTANT, VALERIE S V76.12 MAMMOGRAM SCREENING 04/10/2013 YATES DO, KARO K 380.4 CERUMEN IMPACTION 04/10/2013 YATES DO, KARO K V76.12 MAMMOGRAM SCREENING 04/10/2013 SALLY CHILD WELFARE ASSISTANT, VALERIE S 380.4 CERUMEN IMPACTION 04/10/2013 SALLY CHILD WELFARE ASSISTANT, VALERIE S V76.12 MAMMOGRAM SCREENING 04/10/2013 SALLY CHILD WELFARE ASSISTANT, VALERIE S 380.4 CERUMEN IMPACTION 04/10/2013 SALLY CHILD WELFARE ASSISTANT, VALERIE S V76.12 MAMMOGRAM SCREENING 04/10/2013 SALLY CHILD WELFARE ASSISTANT, VALERIE S 380.4 CERUMEN IMPACTION 04/10/2013 SALLY CHILD WELFARE ASSISTANT, VALERIE S V76.12 MAMMOGRAM SCREENING 04/10/2013 YATES DO, KARO K 380.4 CERUMEN IMPACTION 04/10/2013 YATES DO, KARO K V76.12 MAMMOGRAM SCREENING 04/10/2013 SALLY CHILD WELFARE ASSISTANT, VALERIE S 380.4 CERUMEN IMPACTION 04/10/2013 SALLY CHILD WELFARE ASSISTANT, VALERIE S V76.12 MAMMOGRAM SCREENING 09/09/2013 SALLY CHILD WELFARE ASSISTANT, VALERIE S 272.4 HYPERLIPIDEMIA 09/09/2013 SALLY CHILD WELFARE ASSISTANT, VALERIE S 272.4 HYPERLIPIDEMIA 09/09/2013 SALLY CHILD WELFARE ASSISTANT, VALERIE S 272.4 HYPERLIPIDEMIA 09/09/2013 SALLY CHILD WELFARE ASSISTANT, VALERIE S 272.4 HYPERLIPIDEMIA 09/09/2013 YATES DO, KARO K 272.4 HYPERLIPIDEMIA 09/09/2013 SALLY CHILD WELFARE ASSISTANT, VALERIE S 272.4 HYPERLIPIDEMIA 09/09/2013 YATES DO, KARO K 272.4 HYPERLIPIDEMIA 09/09/2013 SALLY CHILD WELFARE ASSISTANT, VALERIE S 272.4 HYPERLIPIDEMIA 09/09/2013 SALLY CHILD WELFARE ASSISTANT, VALERIE S 272.4 HYPERLIPIDEMIA 09/09/2013 SALLY CHILD WELFARE ASSISTANT, VALERIE S 272.4 HYPERLIPIDEMIA 09/09/2013 YATES DO, KARO K 272.4 HYPERLIPIDEMIA 09/09/2013 SALLY CHILD WELFARE ASSISTANT, VALERIE S 272.4 HYPERLIPIDEMIA 10/17/2013 SALLY CHILD WELFARE ASSISTANT, VALERIE S 724.5 BACK PAIN, GENERAL 10/17/2013 SALLY CHILD WELFARE ASSISTANT, VALERIE S 724.5 BACK PAIN, GENERAL 10/17/2013 SALLY CHILD WELFARE ASSISTANT, VALERIE S 724.5 BACK PAIN, GENERAL 10/17/2013 YATES DO, KARO K 724.5 BACK PAIN, GENERAL 10/17/2013 SALLY CHILD WELFARE ASSISTANT, VALERIE S 724.5 BACK PAIN, GENERAL 10/17/2013 YATES DO, KARO K 724.5 BACK PAIN, GENERAL 10/17/2013 SALLY CHILD WELFARE ASSISTANT, VALERIE S 724.5 BACK PAIN, GENERAL 10/17/2013 SALLY CHILD WELFARE ASSISTANT, VALERIE S 724.5 BACK PAIN, GENERAL 10/17/2013 SALLY CHILD WELFARE ASSISTANT, VALERIE S 724.5 BACK PAIN, GENERAL 10/17/2013 YATES DO, KARO K 724.5 BACK PAIN, GENERAL 10/17/2013 SALLY CHILD WELFARE ASSISTANT, VALERIE S 724.5 BACK PAIN, GENERAL 12/03/2013 SALLY CHILD WELFARE ASSISTANT, VALERIE S 496 COPD 12/03/2013 SALLY CHILD WELFARE ASSISTANT, VALERIE S 599.0 URINARY TRACT INFECTION 12/03/2013 SALLY CHILD WELFARE ASSISTANT, VALERIE S 788.41 URINARY FREQUENCY 12/03/2013 SALLY CHILD WELFARE ASSISTANT, VALERIE S 496 COPD 12/03/2013 SALLY CHILD WELFARE ASSISTANT, VALERIE S 599.0 URINARY TRACT INFECTION 12/03/2013 SALLY CHILD WELFARE ASSISTANT, VALERIE S 788.41 URINARY FREQUENCY 12/03/2013 YATES DO, KARO K 496 COPD 12/03/2013 YTAES DO, KARO K 599.0 URINARY TRACT INFECTION 12/03/2013 YATES DO, KARO K 788.41 URINARY FREQUENCY 12/03/2013 SALLY CHILD WELFARE ASSISTANT, VALERIE S 496 COPD 12/03/2013 SALLY CHILD WELFARE ASSISTANT, VALERIE S 599.0 URINARY TRACT INFECTION 12/03/2013 SALLY CHILD WELFARE ASSISTANT, VALERIE S 788.41 URINARY FREQUENCY 12/03/2013 YATES DO, KARO K 496 COPD 12/03/2013 YATES DO, KARO K 599.0 URINARY TRACT INFECTION 12/03/2013 YATES DO, KARO K 788.41 URINARY FREQUENCY 12/03/2013 SALLY CHILD WELFARE ASSISTANT, VALERIE S 496 COPD 12/03/2013 SALLY CHILD WELFARE ASSISTANT, VALERIE S 599.0 URINARY TRACT INFECTION 12/03/2013 SALLY CHILD WELFARE ASSISTANT, VALERIE S 788.41 URINARY FREQUENCY 12/03/2013 SALLY CHILD WELFARE ASSISTANT, VALERIE S 496 COPD 12/03/2013 SALLY CHILD WELFARE ASSISTANT, VALERIE S 599.0 URINARY TRACT INFECTION 12/03/2013 SALLY CHILD WELFARE ASSISTANT, VALERIE S 788.41 URINARY FREQUENCY 12/03/2013 SALLY CHILD WELFARE ASSISTANT, VALERIE S 496 COPD 12/03/2013 SALLY CHILD WELFARE ASSISTANT, VALERIE S 599.0 URINARY TRACT INFECTION 12/03/2013 SALLY CHILD WELFARE ASSISTANT, VALERIE S 788.41 URINARY FREQUENCY 12/03/2013 YATES DO, KARO K 496 COPD 12/03/2013 YATES DO, KARO K 599.0 URINARY TRACT INFECTION 12/03/2013 YATES DO, KARO K 788.41 URINARY FREQUENCY 12/03/2013 SALLY CHILD WELFARE ASSISTANT, VALERIE S 496 COPD 12/03/2013 SALLY CHILD WELFARE ASSISTANT, VALERIE S 599.0 URINARY TRACT INFECTION 12/03/2013 SALLY CHILD WELFARE ASSISTANT, VALERIE S 788.41 URINARY FREQUENCY 01/23/2014 YATES DO, KARO K 477.0 ALLERGIC RHINITIS DUE TO POLLEN 01/23/2014 SALLY CHILD WELFARE ASSISTANT, VALERIE S 477.0 ALLERGIC RHINITIS DUE TO POLLEN 01/23/2014 YATES DO, KARO K 477.0 ALLERGIC RHINITIS DUE TO POLLEN 01/23/2014 SALLY CHILD WELFARE ASSISTANT, VALERIE S 477.0 ALLERGIC RHINITIS DUE TO POLLEN 01/23/2014 SALLY CHILD WELFARE ASSISTANT, VALERIE S 477.0 ALLERGIC RHINITIS DUE TO POLLEN 01/23/2014 SALLY CHILD WELFARE ASSISTANT, VALERIE S 477.0 ALLERGIC RHINITIS DUE TO POLLEN 01/23/2014 YATES DO, KARO K 477.0 ALLERGIC RHINITIS DUE TO POLLEN 01/23/2014 SALLY CHILD WELFARE ASSISTANT, VALERIE S 477.0 ALLERGIC RHINITIS DUE TO POLLEN 02/26/2014 MIKE NICHOLSON L Ot 564.00 UNSPEC CONSTIPATION 02/26/2014 MIKE NICHOLSON L Ot 788.0 RENAL COLIC 02/26/2014 MIKE NICHOLSON L Ot 789.09 ABDOMINAL PAIN, OTHER SPECIFIED SITE 03/03/2014 SALLY CHILD WELFARE ASSISTANT, VALERIE S 592.0 CALCULUS OF KIDNEY 03/03/2014 YATES DO, KARO K 592.0 CALCULUS OF KIDNEY 03/03/2014 SALLY CHILD WELFARE ASSISTANT, VALERIE S 592.0 CALCULUS OF KIDNEY 03/03/2014 SALLY CHILD WELFARE ASSISTANT, VALERIE S 592.0 CALCULUS OF KIDNEY 03/03/2014 SALLY CHILD WELFARE ASSISTANT, VALERIE S 592.0 CALCULUS OF KIDNEY 03/03/2014 YATES DO, KARO K 592.0 CALCULUS OF KIDNEY 03/03/2014 SALLY CHILD WELFARE ASSISTANT, VALERIE S 592.0 CALCULUS OF KIDNEY 04/07/2014 YATES DO, KAOR K 789.01 ABDOMINAL PAIN RIGHT UPPER QUADRANT 04/07/2014 SALLY CHILD WELFARE ASSISTANT, VALERIE S 789.01 ABDOMINAL PAIN RIGHT UPPER QUADRANT 04/07/2014 SALLY CHILD WELFARE ASSISTANT, VALERIE S 789.01 ABDOMINAL PAIN RIGHT UPPER QUADRANT 04/07/2014 SALLY CHILD WELFARE ASSISTANT, VALERIE S 789.01 ABDOMINAL PAIN RIGHT UPPER QUADRANT 04/07/2014 YATES DO, KARO K 789.01 ABDOMINAL PAIN RIGHT UPPER QUADRANT 04/07/2014 SALLY CHILD WELFARE ASSISTANT, VALERIE S 789.01 ABDOMINAL PAIN RIGHT UPPER QUADRANT 05/12/2014 VALERIE ZAVALA Ot 789.01 06/06/2014 VALERIE ZAVALA APRN S 789.09 ABDOMINAL PAIN OTHER SPECIFIED SITE 06/06/2014 KARO YATES DO Sunshine 789.09 ABDOMINAL PAIN OTHER SPECIFIED SITE 06/06/2014 VALERIE ZAVALA APRN S 789.09 ABDOMINAL PAIN OTHER SPECIFIED SITE 06/26/2014 VALERIE ZAVALA Ot 789.09 06/27/2014 COTTER BALTAZAR RAMIREZ Delia Ot 789.01 08/25/2014 VALERIE ZAVALA APRN S 564.00 CONSTIPATION 08/25/2014 VALERIE ZAVALA APRN S 719.46 PAIN- KNEE 08/25/2014 VALERIE ZAVALA APRN S 719.47 PAIN- FOOT 10/29/2014 Ot 599.0 10/29/2014 Ot 787.91 10/29/2014 Ot 599.70 10/29/2014 Ot 722.52 10/29/2014 Ot 787.91 10/29/2014 Ot 789.00 10/29/2014 Ot V76.12 10/29/2014 Ot 576.8 10/29/2014 Ot 599.70 10/29/2014 Ot 789.00 10/29/2014 Ot 789.01 10/29/2014 Ot 599.70 10/29/2014 Ot 625.9 10/29/2014 Ot V72.63 10/29/2014 Ot V72.81 10/29/2014 Ot V74.8 10/29/2014 Ot 403.90 10/29/2014 Ot 585.1 10/29/2014 Ot 729.5 10/29/2014 Ot 735.0 10/29/2014 Ot 735.4 10/29/2014 Ot V72.83 10/29/2014 Ot V74.8 10/29/2014 Ot 724.2 10/29/2014 Ot 722.52 10/29/2014 VALERIE ZAVALA Ot 053.9 10/29/2014 VALERIE ZAVALA Ot 338.4 10/29/2014 VALERIE ZAVALA Ot 380.4 10/29/2014 VALERIE ZAVALA Ot 382.00 10/29/2014 VALERIE ZAVALAP Ot 401.1 10/29/2014 VALERIE ZAVALAP Ot 564.1 10/29/2014 VALERIE ZAVALA TENTMAKER Ot 719.40 10/29/2014 VALERIE ZAVALA TENTMAKER Ot 786.52 10/29/2014 VALERIE ZAVALA TENTMAKER Ot V76.12 10/29/2014 SEDRICK DOBSON R CHILD WELFARE ASSISTANT Ot 338.4 10/29/2014 SEDRICK DOBSON R CHILD WELFARE ASSISTANT Ot 401.1 10/29/2014 SEDRICK DOBSON R CHILD WELFARE ASSISTANT Ot 564.1 10/29/2014 SEDRICK DOBSON R CHILD WELFARE ASSISTANT Ot 719.40 10/29/2014 VALERIE ZAVALA TENTMAKER Ot 789.01 10/29/2014 BALTAZAR COTTER DO Ot 789.01 10/29/2014 VALERIE ZAVALA TENTMAKER Ot 789.09 11/03/2014 DOLORES DPM, SHERI Q Ot 305.1 TOBACCO USE DISORDER 11/03/2014 DOLORES DPM, SHERI Q Ot 311 DEPRESSIVE DISORDER NEC 11/03/2014 DOLORES DPM, SHERI Q Ot 401.9 HYPERTENSION NOS 11/03/2014 DOLORES DPM, SHERI Q Ot 496 CHR AIRWAY OBSTRUCT NEC 11/03/2014 DOLORES DPM, SHERI Q Ot 735.0 HALLUX VALGUS 11/03/2014 DOLORES DPM, SHERI Q Ot 735.4 OTHER HAMMER TOE 11/03/2014 DOLORES DPM, SHERI Q Ot V57.1 PHYSICAL THERAPY NEC 11/03/2014 DOLORES DPM, SHERI Q Ot V58.69 OT MED,LT,CURRENT USE 11/08/2014 DOLORES DPM, SHERI Q Ot 735.0 11/08/2014 DOLORES DPM, SHERI Q Ot 735.4 11/08/2014 DOLORES DPM, SHERI Q Ot V72.81 11/08/2014 DOLORES DPM, SHERI Q Ot V74.8 11/21/2014 DOLORES DPM, SHERI Q Ot 735.0 11/21/2014 DOLORES DPM, SHERI Q Ot 735.4 11/21/2014 DOLORES DPM, SHERI Q Ot V72.81 11/21/2014 DOLORES DPM, SHERI Q Ot V74.8 01/10/2015 TAL ABRAMS, ALBARO P Ot 305.1 TOBACCO USE DISORDER 01/10/2015 TAL ABRAMS, ALBARO P Ot 346.90 MIGRAINE UNSPECIFIED W/O INTRACT MGRN W / 01/10/2015 TAL ABRAMS, ALBARO P Ot 401.9 HYPERTENSION NOS 01/10/2015 TAL ABRAMS, ALBARO P Ot 477.9 ALLERGIC RHINITIS NOS 01/10/2015 TAL ABRAMS, ALBARO P Ot 564.1 IRRITABLE BOWEL SYNDROME 01/10/2015 TAL ABRAMS, ALBARO P Ot 715.36 LOC OSTEOARTH NOS-L/LEG 01/10/2015 TAL ABRAMS, ALBARO P Ot 724.5 BACKACHE NOS 01/10/2015 TAL ABRAMS, ALBARO P Ot V13.01 PERSONAL HISTORY OF URINARY CALCULI 01/10/2015 TAL ABRAMS, ALBARO P Ot V13.02 PERSONAL HISTORY, URINARY (TRACT) INFECT 01/21/2015 TAL ABRAMS, ALBARO P Ot 715.36 01/21/2015 TAL ABRAMS, ALBARO P Ot 780.79 01/21/2015 TAL ABRAMS, ALBARO P Ot V57.1 01/21/2015 TLA ABRAMS, ALBARO P Ot V57.21 01/21/2015 TAL ABRAMS, ALBARO P Ot V72.63 01/21/2015 TAL ABRAMS, ALBARO P Ot V72.83 01/21/2015 TAL ABRAMS, ALBARO P Ot V74.8 02/03/2015 TAL ABRAMS, ALBARO P Ot 715.36 02/03/2015 TAL ABRAMS, ALBARO P Ot 780.79 02/03/2015 TAL ABRAMS, ALBARO P Ot V57.1 02/03/2015 TAL ABRAMS, ALBARO P Ot V57.21 02/03/2015 TAL ABRAMS, ALBARO P Ot V72.63 02/03/2015 TAL ABRAMS, ALBARO P Ot V72.83 02/03/2015 TAL ABRAMS, ALBARO P Ot V74.8 02/05/2015 TAL ABRAMS, ALBARO P Ot 715.36 02/05/2015 TAL ABRAMS, ALBARO P Ot 780.79 02/05/2015 TAL ABRAMS, ALBARO P Ot V57.1 02/05/2015 TAL ABRAMS, ALBARO P Ot V57.21 02/05/2015 TAL ABRAMS, ALBARO P Ot V72.63 02/05/2015 TAL ABRAMS, ALBARO P Ot V72.83 02/05/2015 TAL ABRAMS, ALBARO P Ot V74.8 02/12/2015 TAL ABRAMS, ALBARO P Ot 715.36 02/12/2015 TAL ABRAMS, ALBARO P Ot 780.79 02/12/2015 TAL ABRAMS, ALBARO P Ot V57.1 02/12/2015 TAL ABRAMS, ALBARO P Ot V57.21 02/12/2015 TAL ABRAMS, ALBARO P Ot V72.63 02/12/2015 TAL ABRAMS, ALBARO P Ot V72.83 02/12/2015 TAL ABRAMS, ALBARO Traore Ot V74.8 03/31/2015 Ot 599.0 03/31/2015 Ot 787.91 03/31/2015 Ot 599.70 03/31/2015 Ot 722.52 03/31/2015 Ot 787.91 03/31/2015 Ot 789.00 03/31/2015 Ot V76.12 03/31/2015 Ot 576.8 03/31/2015 Ot 599.70 03/31/2015 Ot 789.00 03/31/2015 Ot 789.01 03/31/2015 Ot 599.70 03/31/2015 Ot 625.9 03/31/2015 Ot V72.63 03/31/2015 Ot V72.81 03/31/2015 Ot V74.8 03/31/2015 Ot 403.90 03/31/2015 Ot 585.1 03/31/2015 Ot 729.5 03/31/2015 Ot 735.0 03/31/2015 Ot 735.4 03/31/2015 Ot V72.83 03/31/2015 Ot V74.8 03/31/2015 Ot 724.2 03/31/2015 Ot 722.52 03/31/2015 VALERIE ZAVALA Ot 053.9 03/31/2015 VALERIE ZAVALA Ot 338.4 03/31/2015 VALERIE ZAVALA TENTMAKER Ot 380.4 03/31/2015 VALERIE ZAVALA TENTMAKER Ot 382.00 03/31/2015 VALERIE ZAVALA TENTMAKER Ot 401.1 03/31/2015 VALERIE ZAVALA TENTMAKER Ot 564.1 03/31/2015 VALERIE ZAVALA TENTMAKER Ot 719.40 03/31/2015 VALERIE ZAVALA TENTMAKER Ot 786.52 03/31/2015 VALERIE ZAVALA TENTMAKER Ot V76.12 03/31/2015 BRONSON SEDRICK R CHILD WELFARE ASSISTANT Ot 338.4 03/31/2015 BRONSON SEDRICK R CHILD WELFARE ASSISTANT Ot 401.1 03/31/2015 BRONSON SEDRICK R CHILD WELFARE ASSISTANT Ot 564.1 03/31/2015 BRONSON SEDRICK R CHILD WELFARE ASSISTANT Ot 719.40 03/31/2015 VALERIE ZAVALA TENTMAKER Ot 789.01 03/31/2015 BALTAZAR COTTER DO Ot 789.01 03/31/2015 VALERIE ZAVALA TENTMAKER Ot 789.09 03/31/2015 DOLORES DPM, SHERI Q Ot 735.0 03/31/2015 DOLORES DPM, SHERI Q Ot 735.4 03/31/2015 DOLORES DPM, SHERI Q Ot V72.81 03/31/2015 DOLORES DPM, SHERI Q Ot V74.8 03/31/2015 TAL ABRAMS, ALBARO Traore Ot 715.36 03/31/2015 TAL ABRAMS, ALBARO P Ot 780.79 03/31/2015 TAL ABRAMS, ALBARO P Ot V57.1 03/31/2015 TAL ABRAMS, ALBARO P Ot V57.21 03/31/2015 TAL ABRAMS, ALBARO P Ot V72.63 03/31/2015 TAL ABRAMS, ALBARO P Ot V72.83 03/31/2015 TAL ABRAMS, ALBARO P Ot V74.8 04/22/2015 TAL ABRAMS, ALBARO Traore Ot M54.16 05/27/2015 TAL ABRAMS, ALBARO Traore Ot M54.16 10/23/2015 Ot 599.70 HEMATURIA, UNSPECIFIED 10/23/2015 Ot 722.52 LUMB/LUMBOSAC DISC DEGEN 10/23/2015 Ot 787.91 DIARRHEA 10/23/2015 Ot 789.00 ABDOMINAL PAIN, UNSPECIFIED SITE 10/23/2015 Ot V76.12 OTH SCREEN MAMMO-MALIGN NEOPLASM OF JOSIAH 10/23/2015 Ot 576.8 DIS OF BILIARY TRACT NEC 10/23/2015 Ot 599.70 HEMATURIA, UNSPECIFIED 10/23/2015 Ot 789.00 ABDOMINAL PAIN, UNSPECIFIED SITE 10/23/2015 Ot 789.01 ABDOMINAL PAIN, RIGHT UPPER QUADRANT 10/23/2015 Ot 599.70 HEMATURIA, UNSPECIFIED 10/23/2015 Ot 625.9 FEM GENITAL SYMPTOMS NOS 10/23/2015 Ot V72.63 PRE-PROCEDURAL LABORATORY EXAMINATION 10/23/2015 Ot V72.81 [id number] CARDIOVASCULAR 10/23/2015 Ot V74.8 SCREEN-BACTERIAL DIS NEC 10/23/2015 Ot 403.90 HYPTNSV CHR KID DIS, UNSPEC, W CHR KD ST 10/23/2015 Ot 585.1 CHRONIC KIDNEY DISEASE, STAGE I 10/23/2015 Ot 729.5 PAIN IN LIMB 10/23/2015 Ot 735.0 HALLUX VALGUS 10/23/2015 Ot 735.4 OTHER HAMMER TOE 10/23/2015 Ot V72.83 EXAM PRE-OPERATIVE NEC 10/23/2015 Ot V74.8 SCREEN-BACTERIAL DIS NEC 10/23/2015 Ot 724.2 LUMBAGO 10/23/2015 Ot 722.52 LUMB/LUMBOSAC DISC DEGEN 10/23/2015 VALERIE ZAVALAP Ot 053.9 HERPES ZOSTER NOS 10/23/2015 VALERIE ZAVALAP Ot 338.4 CHRONIC PAIN SYNDROME 10/23/2015 VALERIE ZAVALAP Ot 380.4 IMPACTED CERUMEN 10/23/2015 VALERIE ZAVALAP Ot 382.00 AC SUPP OTITIS MEDIA NOS 10/23/2015 VALERIE ZAVALAP Ot 401.1 BENIGN HYPERTENSION 10/23/2015 VALERIE ZAVALA Ot 564.1 IRRITABLE BOWEL SYNDROME 10/23/2015 VALERIE ZAVALAP Ot 719.40 JOINT PAIN-UNSPEC 10/23/2015 VALERIE ZAVALA Ot 786.52 PAINFUL RESPIRATION 10/23/2015 SALLY, VALERIE TENTMAKER Ot V76.12 OTH SCREEN MAMMO-MALIGN NEOPLASM OF J[place]IAH 10/23/2015 SEDRICK DOBSON CHILD WELFARE ASSISTANT Ot 338.4 CHRONIC PAIN SYNDROME 10/23/2015 SEDRICK DOBSON CHILD WELFARE ASSISTANT Ot 401.1 BENIGN HYPERTENSION 10/23/2015 SEDRICK DOBSON R CHILD WELFARE ASSISTANT Ot 564.1 IRRITABLE BOWEL SYNDROME 10/23/2015 SEDRICK DOBSON CHILD WELFARE ASSISTANT Ot 719.40 JOINT PAIN-UNSPEC 10/23/2015 VALERIE ZAVALA TENTMAKER Ot 789.01 ABDOMINAL PAIN, RIGHT UPPER QUADRANT 10/23/2015 BALTAZAR COTTER DO Delia Ot 789.01 ABDOMINAL PAIN, RIGHT UPPER QUADRANT 10/23/2015 VALERIE ZAVALA TENTMAKER Ot 789.09 ABDOMINAL PAIN, OTHER SPECIFIED SITE 10/23/2015 DOLORES DPM, SHERI Q Ot 735.0 HALLUX VALGUS 10/23/2015 DOLORES DPM, SHERI Q Ot 735.4 OTHER HAMMER TOE 10/23/2015 DOLORES DPM, SHERI Q Ot V72.81 [id number] CARDIOVASCULAR 10/23/2015 DOLORES DPM, SHERI Q Ot V74.8 SCREEN-BACTERIAL DIS NEC 10/23/2015 TAL ABRAMS, ALBARO Traore Ot 715.36 LOC OSTEOARTH NOS-L/LEG 10/23/2015 TAL ABRAMS, ALBARO Traore Ot 780.79 OTH MALAISE FATIGUE 10/23/2015 ALBARO PARADA MD Ot V57.1 PHYSICAL THERAPY NEC 10/23/2015 ALBARO PARADA MD Ot V57.21 ENCOUNTER FOR OCCUPATIONAL THERAPY 10/23/2015 ALBARO PARADA MD Ot V72.63 PRE-PROCEDURAL LABORATORY EXAMINATION 10/23/2015 ALBARO PARADA MD Ot V72.83 EXAM PRE-OPERATIVE NEC 10/23/2015 ALBARO PARADA MD Ot V74.8 SCREEN-BACTERIAL DIS NEC 10/23/2015 ALBARO PARADA MD Ot M54.16 RADICULOPATHY, LUMBAR REGION 10/23/2015 MIKAELA MIN MD Ot F17.210 NICOTINE DEPENDENCE, CIGARETTES, UNCOMPL 10/23/2015 MIKAELA MIN MD Ot K58.9 IRRITABLE BOWEL SYNDROME WITHOUT DIARRHE 10/23/2015 MIKAELA MIN MD Ot R10.30 LOWER ABDOMINAL PAIN, UNSPECIFIED 2015 MIKAELA MIN MD Ot F17.210 NICOTINE DEPENDENCE, CIGARETTES, UNCOMPL 2015 MIKAELA MIN MD Ot K58.9 IRRITABLE BOWEL SYNDROME WITHOUT DIARRHE 2015 MIKAELA MIN MD Ot R10.30 LOWER ABDOMINAL PAIN, UNSPECIFIED 2015 SALLYVALERIE FERGUSON TENTMAKER Ot R10.11 RIGHT UPPER QUADRANT PAIN 11/12/2015 VALERIE ZAVALA TENTMAKER Ot R10.11 RIGHT UPPER QUADRANT PAIN 11/19/2015 VALERIE ZAVALA TENTMAKER Ot R10.11 RIGHT UPPER QUADRANT PAIN 05/29/2016 CYDNEY ANDERSON APRN Ot F17.210 NICOTINE DEPENDENCE, CIGARETTES, UNCOMPL 05/29/2016 CYDNEY ANDERSON APRN Ot I10 ESSENTIAL (PRIMARY) HYPERTENSION 05/29/2016 CYDNEY ANDERSON APRN Ot J44.1 CHRONIC OBSTRUCTIVE PULMONARY DISEASE W 05/29/2016 CYDNEY ANDERSON APRN Ot R06.02 SHORTNESS OF BREATH 05/31/2016 CYDNEY ANDERSON APRN Ot F17.210 NICOTINE DEPENDENCE, CIGARETTES, UNCOMPL 05/31/2016 CYDNEY ANDERSON APRN Ot I10 ESSENTIAL (PRIMARY) HYPERTENSION 05/31/2016 CYDNEY ANDERSON APRN Ot J44.1 CHRONIC OBSTRUCTIVE PULMONARY DISEASE W 05/31/2016 CYDNEY ANDERSON APRN Ot R06.02 SHORTNESS OF BREATH 06/02/2016 Ot 599.70 HEMATURIA, UNSPECIFIED 06/02/2016 Ot 625.9 FEM GENITAL SYMPTOMS NOS 06/02/2016 Ot V72.63 PRE-PROCEDURAL LABORATORY EXAMINATION 06/02/2016 Ot V72.81 [id number] CARDIOVASCULAR 06/02/2016 Ot V74.8 SCREEN-BACTERIAL DIS NEC 06/02/2016 Ot 403.90 HYPTNSV CHR KID DIS, UNSPEC, W CHR KD ST 06/02/2016 Ot 585.1 CHRONIC KIDNEY DISEASE, STAGE I 06/02/2016 Ot 729.5 PAIN IN LIMB 06/02/2016 Ot 735.0 HALLUX VALGUS 06/02/2016 Ot 735.4 OTHER HAMMER TOE 06/02/2016 Ot V72.83 EXAM PRE-OPERATIVE NEC 06/02/2016 Ot V74.8 SCREEN-BACTERIAL DIS NEC 06/02/2016 Ot 724.2 LUMBAGO 06/02/2016 Ot 722.52 LUMB/LUMBOSAC DISC DEGEN 06/02/2016 VALERIE ZAVALAP Ot 053.9 HERPES ZOSTER NOS 06/02/2016 VALERIE ZAVALA TENTMAKER Ot 338.4 CHRONIC PAIN SYNDROME 06/02/2016 VALERIE ZAVALA TENTMAKER Ot 380.4 IMPACTED CERUMEN 06/02/2016 VALERIE ZAVALA TENTMAKER Ot 382.00 AC SUPP OTITIS MEDIA NOS 06/02/2016 VALERIE ZAVALA TENTMAKER Ot 401.1 BENIGN HYPERTENSION 06/02/2016 VALERIE ZAVALAP Ot 564.1 IRRITABLE BOWEL SYNDROME 06/02/2016 VALERIE ZAVALAP Ot 719.40 JOINT PAIN-UNSPEC 06/02/2016 VALERIE ZAVALAP Ot 786.52 PAINFUL RESPIRATION 06/02/2016 VALERIE ZAVALA Ot V76.12 OTH SCREEN MAMMO-MALIGN NEOPLASM OF JOSIAH 06/02/2016 SEDRICK DOBSON CHILD WELFARE ASSISTANT Ot 338.4 CHRONIC PAIN SYNDROME 06/02/2016 SEDRICK DOBSON CHILD WELFARE ASSISTANT Ot 401.1 BENIGN HYPERTENSION 06/02/2016 SEDRICK DOBSON CHILD WELFARE ASSISTANT Ot 564.1 IRRITABLE BOWEL SYNDROME 06/02/2016 SEDRICK DOBSON CHILD WELFARE ASSISTANT Ot 719.40 JOINT PAIN-UNSPEC 06/02/2016 VALERIE ZAVALAP Ot 789.01 ABDOMINAL PAIN, RIGHT UPPER QUADRANT 06/02/2016 BALTAZAR COTTER DO Ot 789.01 ABDOMINAL PAIN, RIGHT UPPER QUADRANT 06/02/2016 VALERIE ZAVALA Ot 789.09 ABDOMINAL PAIN, OTHER SPECIFIED SITE 06/02/2016 DOLORES DPM, SHERI Q Ot 735.0 HALLUX VALGUS 06/02/2016 DOLORES DPM, SHERI Q Ot 735.4 OTHER HAMMER TOE 06/02/2016 DOLORES DPM, SHERI Q Ot V72.81 [id number] CARDIOVASCULAR 06/02/2016 DOLORES DPM, SHERI Q Ot V74.8 SCREEN-BACTERIAL DIS NEC 06/02/2016 TAL ABRAMS, ALBARO Traore Ot 715.36 LOC OSTEOARTH NOS-L/LEG 06/02/2016 ALBARO PARADA MD Ot 780.79 OTH MALAISE FATIGUE 06/02/2016 ALBARO PARADA MD, Ot V57.1 PHYSICAL THERAPY NEC 06/02/2016 ALBARO PARADA MD Ot V57.21 ENCOUNTER FOR OCCUPATIONAL THERAPY 06/02/2016 ALBARO PARADA MD Ot V72.63 PRE-PROCEDURAL LABORATORY EXAMINATION 06/02/2016 ALBARO PARADA MD Ot V72.83 EXAM PRE-OPERATIVE NEC 06/02/2016 ALBARO PARADA MD Ot V74.8 SCREEN-BACTERIAL DIS NEC 06/02/2016 ALBARO PARAAD MD Ot M54.16 RADICULOPATHY, LUMBAR REGION 06/02/2016 VALERIE ZAVALA Ot R10.11 RIGHT UPPER QUADRANT PAIN 06/03/2016 RAISSA FUENTES MD Ot D72.829 ELEVATED WHITE BLOOD CELL COUNT, UNSPECI 06/03/2016 RAISSA FUENTES MD Ot E87.1 HYPO-OSMOLALITY AND HYPONATREMIA 06/03/2016 RAISSA FUENTES MD Ot F17.210 NICOTINE DEPENDENCE, CIGARETTES, UNCOMPL 06/03/2016 RAISSA FUENTES MD Ot F43.10 POST-TRAUMATIC STRESS DISORDER, UNSPECIF 06/03/2016 RAISSA FUENTES MD Ot G43.909 MIGRAINE, UNSP, NOT INTRACTABLE, WITHOUT 06/03/2016 RAISSA FUENTES MD Ot I10 ESSENTIAL (PRIMARY) HYPERTENSION 06/03/2016 RAISSA FUENTES MD Ot I49.9 CARDIAC ARRHYTHMIA, UNSPECIFIED 06/03/2016 RAISSA FUENTES MD Ot J44.1 CHRONIC OBSTRUCTIVE PULMONARY DISEASE W 06/03/2016 RAISSA FUENTES MD Ot K29.70 GASTRITIS, UNSPECIFIED, WITHOUT BLEEDING 06/03/2016 RAISSA FUENTES MD Ot K58.9 IRRITABLE BOWEL SYNDROME WITHOUT DIARRHE 06/03/2016 RAISSA FUENTES MD Ot M19.90 UNSPECIFIED OSTEOARTHRITIS, UNSPECIFIED 06/03/2016 RAISSA FUENTES MD Ot M54.5 LOW BACK PAIN 06/03/2016 RAISSA FUENTES MD Ot N39.0 URINARY TRACT INFECTION, SITE NOT SPECIF 06/03/2016 RAISSA FUENTES MD Ot R09.02 HYPOXEMIA 06/03/2016 RAISSA FUENTES MD Ot R63.4 ABNORMAL WEIGHT LOSS 06/03/2016 RAISSA FUENTES MD Ot Z96.651 PRESENCE OF RIGHT ARTIFICIAL KNEE JOINT 06/03/2016 RAISSA FUENTES MD Ot D72.829 ELEVATED WHITE BLOOD CELL COUNT, UNSPECI 06/03/2016 RAISSA FUENTES MD Ot E87.1 HYPO-OSMOLALITY AND HYPONATREMIA 06/03/2016 RAISSA FUENTES MD Ot F17.210 NICOTINE DEPENDENCE, CIGARETTES, UNCOMPL 06/03/2016 RAISSA FUENTES MD Ot F43.10 POST-TRAUMATIC STRESS DISORDER, UNSPECIF 06/03/2016 RAISSA FUENTES MD Ot G43.909 MIGRAINE, UNSP, NOT INTRACTABLE, WITHOUT 06/03/2016 RAISSA FUENTES MD Ot I10 ESSENTIAL (PRIMARY) HYPERTENSION 06/03/2016 RAISSA FUENTES MD Ot I49.9 CARDIAC ARRHYTHMIA, UNSPECIFIED 06/03/2016 RAISSA FUENTES MD, Ot J44.1 CHRONIC OBSTRUCTIVE PULMONARY DISEASE W 06/03/2016 RAISSA FUENTES MD Ot K29.70 GASTRITIS, UNSPECIFIED, WITHOUT BLEEDING 06/03/2016 RAISSA FUENTES MD Ot K58.9 IRRITABLE BOWEL SYNDROME WITHOUT DIARRHE 06/03/2016 RAISSA FUENTES MD Ot M19.90 UNSPECIFIED OSTEOARTHRITIS, UNSPECIFIED 06/03/2016 RAISSA FUENTES MD Ot M54.5 LOW BACK PAIN 06/03/2016 RAISSA FUENTES MD Ot N39.0 URINARY TRACT INFECTION, SITE NOT SPECIF 06/03/2016 RAISSA FUENTES MD Ot R09.02 HYPOXEMIA 06/03/2016 RAISSA FUENTES MD Ot R63.4 ABNORMAL WEIGHT LOSS 06/03/2016 RAISSA FUENTES MD Ot Z96.651 PRESENCE OF RIGHT ARTIFICIAL KNEE JOINT 06/06/2016 RAISSA FUENTES MD Ot D72.829 ELEVATED WHITE BLOOD CELL COUNT, UNSPECI 06/06/2016 RAISSA FUENTES MD Ot E87.1 HYPO-OSMOLALITY AND HYPONATREMIA 06/06/2016 RAISSA FUENTES MD Ot F17.210 NICOTINE DEPENDENCE, CIGARETTES, UNCOMPL 06/06/2016 RAISSA FUENTES MD Ot F43.10 POST-TRAUMATIC STRESS DISORDER, UNSPECIF 06/06/2016 RAISSA FUENTES MD Ot G43.909 MIGRAINE, UNSP, NOT INTRACTABLE, WITHOUT 06/06/2016 RAISSA FUENTES MD Ot I10 ESSENTIAL (PRIMARY) HYPERTENSION 06/06/2016 RAISSA FUENTES MD Ot I49.9 CARDIAC ARRHYTHMIA, UNSPECIFIED 06/06/2016 RAISSA FUENTES MD Ot J44.1 CHRONIC OBSTRUCTIVE PULMONARY DISEASE W 06/06/2016 RAISSA FUENTES MD Ot K29.70 GASTRITIS, UNSPECIFIED, WITHOUT BLEEDING 06/06/2016 RAISSA FUENTES MD Ot K58.9 IRRITABLE BOWEL SYNDROME WITHOUT DIARRHE 06/06/2016 RAISSA FUENTES MD Ot M19.90 UNSPECIFIED OSTEOARTHRITIS, UNSPECIFIED 06/06/2016 RAISSA FUENTES MD Ot M54.5 LOW BACK PAIN 06/06/2016 RAISSA FUENTES MD Ot N39.0 URINARY TRACT INFECTION, SITE NOT SPECIF 06/06/2016 ARISSA FUENTES MD Ot R09.02 HYPOXEMIA 06/06/2016 RAISSA FUENTES MD Ot R63.4 ABNORMAL WEIGHT LOSS 06/06/2016 RAISSA FUENTES MD Ot Z96.651 PRESENCE OF RIGHT ARTIFICIAL KNEE JOINT 06/25/2016 ANDREW KANGP Ot I10 ESSENTIAL (PRIMARY) HYPERTENSION 06/25/2016 ANDREW KANGP Ot J44.9 CHRONIC OBSTRUCTIVE PULMONARY DISEASE, U 06/25/2016 PEARLANDREW HendricksonP Ot N39.0 URINARY TRACT INFECTION, SITE NOT SPECIF 06/25/2016 PEARL, ANDREW TENTMAKER Ot R30.0 DYSURIA 06/28/2016 PEARL ANDREW TENTMAKER Ot I10 ESSENTIAL (PRIMARY) HYPERTENSION 06/28/2016 PEARL ANDREW TENTMAKER Ot J44.9 CHRONIC OBSTRUCTIVE PULMONARY DISEASE, U 06/28/2016 PEARL, ANDREW TENTMAKER Ot N39.0 URINARY TRACT INFECTION, SITE NOT SPECIF 06/28/2016 PEARL ANDREW TENTMAKER Ot R30.0 DYSURIA 07/08/2016 BINU JAVIER MD Ot I10 ESSENTIAL (PRIMARY) HYPERTENSION 07/08/2016 BINU JAVIER MD Ot J44.9 CHRONIC OBSTRUCTIVE PULMONARY DISEASE , U 07/08/2016 BINU JAVIER MD T Ot N32.89 OTHER SPECIFIED DISORDERS OF BLADDER 07/08/2016 BINU JAVIER MD Ot N39.0 URINARY TRACT INFECTION, SITE NOT SPECIF 07/08/2016 BINU JAVIER MD T Ot R30.0 DYSURIA 07/08/2016 BINU JAVIER MD Ot Z79.899 OTHER ASSISTED (CURRENT) DRUG THERAPY 07/11/2016 BINU JAVIER MD Ot I10 ESSENTIAL (PRIMARY) HYPERTENSION 07/11/2016 BINU JAVIER MD Ot J44.9 CHRONIC OBSTRUCTIVE PULMONARY DISEASE , U 07/11/2016 BINU JAVIER MD T Ot N32.89 OTHER SPECIFIED DISORDERS OF BLADDER 07/11/2016 BINU JAVIER MD T Ot N39.0 URINARY TRACT INFECTION, SITE NOT SPECIF 07/11/2016 BINU JAVIER MD Ot R30.0 DYSURIA 07/11/2016 BINU JAVIER MD T Ot Z79.899 OTHER ASSISTED (CURRENT) DRUG THERAPY 07/13/2016 BINU JAVIER MD Ot I10 ESSENTIAL (PRIMARY) HYPERTENSION 07/13/2016 BINU JAVIER MD Ot J44.9 CHRONIC OBSTRUCTIVE PULMONARY DISEASE , U 07/13/2016 BINU JAVIER MD T Ot N32.89 OTHER SPECIFIED DISORDERS OF BLADDER 07/13/2016 BINU JAVIER MD Ot N39.0 URINARY TRACT INFECTION, SITE NOT SPECIF 07/13/2016 BINU JAVIER MD Ot R30.0 DYSURIA 07/13/2016 BINU JAVIER MD T Ot Z79.899 OTHER ASSISTED (CURRENT) DRUG THERAPY 08/21/2016 LORETO TIPTON DO Ot F17.210 NICOTINE DEPENDENCE, CIGARETTES, UNCOMPL 08/21/2016 LORETO TIPTON DO K Ot I10 ESSENTIAL (PRIMARY) HYPERTENSION 08/21/2016 SAEED DO, LORETO K Ot J44.9 CHRONIC OBSTRUCTIVE PULMONARY DISEASE, U 08/21/2016 SAEED DO, LORETO K Ot N30.91 CYSTITIS, UNSPECIFIED WITH HEMATURIA 08/21/2016 SAEED DO, LORETO K Ot N39.0 URINARY TRACT INFECTION, SITE NOT SPECIF 08/21/2016 SAEED DO, LORETO K Ot Z79.899 OTHER HEAD NECK SURGEON (CURRENT) DRUG THERAPY 08/23/2016 SAEED DO, LORETO K Ot F17.210 NICOTINE DEPENDENCE, CIGARETTES, UNCOMPL 08/23/2016 SAEED DO, LORETO K Ot I10 ESSENTIAL (PRIMARY) HYPERTENSION 08/23/2016 SAEED DO, LORETO K Ot J44.9 CHRONIC OBSTRUCTIVE PULMONARY DISEASE, U 08/23/2016 SAEED DO, LORETO K Ot N30.91 CYSTITIS, UNSPECIFIED WITH HEMATURIA 08/23/2016 SAEED DO, LORETO K Ot N39.0 URINARY TRACT INFECTION, SITE NOT SPECIF 08/23/2016 SAEED DO, LORETO K Ot Z79.899 OTHER HEAD NECK SURGEON (CURRENT) DRUG THERAPY 09/18/2016 THANH MAO MD J Ot F17.210 NICOTINE DEPENDENCE, CIGARETTES, UNCOMPL 09/18/2016 LOWELL MAO MDUS J Ot I10 ESSENTIAL (PRIMARY) HYPERTENSION 09/18/2016 THANH MAO MD J Ot J44.9 CHRONIC OBSTRUCTIVE PULMONARY DISEASE, U 09/18/2016 LOWELL MAO MDUS J Ot R10.31 RIGHT LOWER QUADRANT PAIN 09/18/2016 THANH MAO MD J Ot R11.2 NAUSEA WITH VOMITING, UNSPECIFIED 09/21/2016 THANH MAO MD J Ot F17.210 NICOTINE DEPENDENCE, CIGARETTES, UNCOMPL 09/21/2016 LOWELL MAO MDUS J Ot I10 ESSENTIAL (PRIMARY) HYPERTENSION 09/21/2016 THANH MAO MD J Ot J44.9 CHRONIC OBSTRUCTIVE PULMONARY DISEASE, U 09/21/2016 THANH MAO MD J Ot R10.31 RIGHT LOWER QUADRANT PAIN 09/21/2016 THANH MAO MD J Ot R11.2 NAUSEA WITH VOMITING, UNSPECIFIED Procedures Code Description [place] [address] XRAY FOOT LEFT 2 VIEWS 03/16/2012 52426 INJ TENDON SHEATH/LIGAMENT 06/29/2012 19643 XRAY FOOT RIGHT 2 VIEWS 06/29/2012 20868 XRAY FOOT LEFT 2 VIEWS 06/29/2012 50740 MRI SPINE (LUMBAR) W/O CONTRAST 07/05/2012 96529 CULTURE URINE 65532 ROUTINE VENIPUNCTURE 02/04/2013 87054 URINE DRUG SCREEN (IN-HOUSE) 02/04/2013 05254 CBC 02/04/2013 29558 CMP 02/04/2013 72734 URIC ACID 2012 07836 LIPID PANEL 02/04 2714129 GFR CALC (RESULT ONLY) 02/04/2013 73353 CRP 02/04/2013 50394 ESR/SED RATE 17804 ASO 02/05/2013 45728 RA FACTOR 2012 ANAANA PEMA ANALYZER (SCREEN) 02/05/2013 G0008 FLU ADMINISTRATION (MEDICARE ONLY) 02/17/2013 07781 XRAY CHEST 2 VIEW 04/10/2013 96391 MAMMOGRAM, SCREENING 05/07/2013 75604 URINE DRUG SCREEN (IN-HOUSE) 06/04/2013 05586 US RENAL ARTERY DOPPLER 09/12/2013 15917 XRAY S-C JOINTS 2 OR MORE VIEWS 10/17/2013 47113 XRAY PELVIS 1 OR 2 VIEWS 10/17/2013 Physical Physical Therapy, [facility] 10/17/2013 49961 ROUTINE VENIPUNCTURE 02/18/2014 2223359 GFR CALC (RESULT ONLY) 02/18/2014 24378 CMP 02/18/2014 18219 LIPID PANEL 02/18 Urology Frank Cole 25770 UA W/ CULTURE IF INDICATED 04/07/2014 37519 US GALLBLADDER ULTRASOUND 04/07/2014 48358 HIDA SCAN 2013 General S [facility] Cotter 04/29/2014 93533 UA LONG DIP 05/31 84539 ROUTINE VENIPUNCTURE 06/04/2014 7584095 GFR CALC (RESULT ONLY) 06/04/2014 84250 CMP 06/04/2014 50337 CBC 06/04/2014 27766 CELIAC DISEASE ANALYZER 06/06/2014 92652 N-METHYLHISTAMINE, 24HR URINE 06/19/2014 68371 XRAY KNEE RIGHT 3 VIEWS 08/25/2014 Albaro Dominguez 08/30/2014 81.54 TOTAL KNEE REPLACEMENT 01/07/2015 Results Test Result Range Complete blood count (CBC) with automated white blood cell (WBC) differential - 05/29/16 16:50 Blood leukocytes automated count (number/volume) 6.7 10*3/ uL 4.3-11.0 Blood erythrocytes automated count (number/volume) 3.94 10*6 /uL 4.35-5.85 Venous blood hemoglobin measurement (mass/volume) 12.6 g/dL 11.5-16.0 Blood hematocrit (volume fraction) 38 % 35-52 Automated erythrocyte mean corpuscular volume 96 [foz_us] 80-99 Automated erythrocyte mean corpuscular hemoglobin (mass per erythrocyte) 32 pg 25-34 Automated erythrocyte mean corpuscular hemoglobin concentration measurement ( mass/volume) 33 g/dL 32-36 Automated erythrocyte distribution width ratio 15.0 % 10.0-14.5 Automated blood platelet count (count/volume) 421 10*3/uL 130-400 Automated blood platelet mean volume measurement 8.4 [foz_us ] 7.4-10.4 Automated blood neutrophils/100 leukocytes 74 % 42-75 Automated blood lymphocytes/100 leukocytes 19 % 12-44 Blood monocytes/100 leukocytes 7 % 0-12 Automated blood eosinophils/100 leukocytes 0 % 0-10 Automated blood basophils/100 leukocytes 0 % 0-10 Blood neutrophils automated count (number/volume) 5.0 10*3 1.8-7.8 Blood lymphocytes automated count (number/volume) 1.2 10*3 1.0-4.0 Blood monocytes automated count (number/volume) 0.5 10*3 0.0-1.0 Automated eosinophil count 0.0 10*3/uL 0.0-0.3 Automated blood basophil count (count/volume) 0.0 10*3/uL 0.0-0.1 Blood lactic acid measurement (moles/volume) - 05/29/16 16:50 Blood lactic acid measurement (moles/volume) 1.5 mmol/L 0.5-2.0 Comprehensive metabolic panel - 05/29/16 16:50 Serum or plasma sodium measurement (moles/volume) 127 mmol/ L 135-145 Serum or plasma potassium measurement (moles/volume) 4.4 mmol/L 3.6-5.0 Serum or plasma chloride measurement (moles/volume) 99 mmol/ L 98-107 Carbon dioxide 16 mmol/L 21-32 Serum or plasma anion gap determination (moles/volume) 12 mmol/L 5-14 Serum or plasma urea nitrogen measurement (mass/volume) 13 mg/dL 7-18 Serum or plasma creatinine measurement (mass/volume) 1.11 mg /dL 0.60-1.30 Serum or plasma urea nitrogen/creatinine mass ratio 12 NRG Serum or plasma creatinine measurement with calculation of estimated glomerular filtration rate 49 NRG Serum or plasma glucose measurement (mass/volume) 97 mg/dL 70-105 Serum or plasma calcium measurement (mass/volume) 8.9 mg/dL 8.5-10.1 Serum or plasma total bilirubin measurement (mass/volume) 0.2 mg/dL 0.1-1.0 Serum or plasma alkaline phosphatase measurement (enzymatic activity/volume) 152 U/L 40-136 Serum or plasma aspartate aminotransferase measurement (enzymatic activity/ volume) 13 U/L 5-34 Serum or plasma alanine aminotransferase measurement (enzymatic activity/volume ) 8 U/L 0-55 Serum or plasma protein measurement (mass/volume) 7.6 g/dL 6.4-8.2 Serum or plasma albumin measurement (mass/volume) 3.8 g/dL 3.2-4.5 Bacterial blood culture - 05/29/16 16:50 Bacterial blood culture NG NRG Bacterial blood culture - 05/29/16 17:02 Bacterial blood culture NG NR Complete blood count (CBC) with automated white blood cell (WBC) differential - 06/02/16 13:36 Blood leukocytes automated count (number/volume) 13.3 10*3/ uL 4.3-11.0 Blood erythrocytes automated count (number/volume) 4.39 10*6 /uL 4.35-5.85 Venous blood hemoglobin measurement (mass/volume) 13.9 g/dL 11.5-16.0 Blood hematocrit (volume fraction) 42 % 35-52 Automated erythrocyte mean corpuscular volume 95 [foz_us] 80-99 Automated erythrocyte mean corpuscular hemoglobin (mass per erythrocyte) 32 pg 25-34 Automated erythrocyte mean corpuscular hemoglobin concentration measurement ( mass/volume) 33 g/dL 32-36 Automated erythrocyte distribution width ratio 14.9 % 10.0-14.5 Automated blood platelet count (count/volume) 470 10*3/uL 130-400 Automated blood platelet mean volume measurement 8.2 [foz_us ] 7.4-10.4 Automated blood neutrophils/100 leukocytes 87 % 42-75 Automated blood lymphocytes/100 leukocytes 10 % 12-44 Blood monocytes/100 leukocytes 3 % 0-12 Automated blood eosinophils/100 leukocytes 0 % 0-10 Automated blood basophils/100 leukocytes 0 % 0-10 Blood neutrophils automated count (number/volume) 11.6 10*3 1.8-7.8 Blood lymphocytes automated count (number/volume) 1.4 10*3 1.0-4.0 Blood monocytes automated count (number/volume) 0.4 10*3 0.0-1.0 Automated eosinophil count 0.0 10*3/uL 0.0-0.3 Automated blood basophil count (count/volume) 0.0 10*3/uL 0.0-0.1 Comprehensive metabolic panel - 06/02/16 13:36 Serum or plasma sodium measurement (moles/volume) 128 mmol/ L 135-145 Serum or plasma potassium measurement (moles/volume) 4.7 mmol/L 3.6-5.0 Serum or plasma chloride measurement (moles/volume) 98 mmol/ L 98-107 Carbon dioxide 17 mmol/L 21-32 Serum or plasma anion gap determination (moles/volume) 13 mmol/L 5-14 Serum or plasma urea nitrogen measurement (mass/volume) 28 mg/dL 7-18 Serum or plasma creatinine measurement (mass/volume) 1.18 mg /dL 0.60-1.30 Serum or plasma urea nitrogen/creatinine mass ratio 24 NRG Serum or plasma creatinine measurement with calculation of estimated glomerular filtration rate 46 NRG Serum or plasma glucose measurement (mass/volume) 100 mg/dL 70-105 Serum or plasma calcium measurement (mass/volume) 9.6 mg/dL 8.5-10.1 Serum or plasma total bilirubin measurement (mass/volume) 0.3 mg/dL 0.1-1.0 Serum or plasma alkaline phosphatase measurement (enzymatic activity/volume) 113 U/L 40-136 Serum or plasma aspartate aminotransferase measurement (enzymatic activity/ volume) 19 U/L 5-34 Serum or plasma alanine aminotransferase measurement (enzymatic activity/volume ) 9 U/L 0-55 Serum or plasma protein measurement (mass/volume) 7.5 g/dL 6.4-8.2 Serum or plasma albumin measurement (mass/volume) 3.7 g/dL 3.2-4.5 Blood manual differential performed detection - 06/02/16 13:36 Blood monocytes/100 leukocytes 2 % NRG Manual blood segmented neutrophils/100 leukocytes 90 % NRG Blood band neutrophils/100 leukocytes 0 % NRG Manual blood lymphocytes/100 leukocytes 8 % NRG Manual eosinophils/100 leukocytes in nose 0 % NRG Manual blood basophils/100 leukocytes 0 % NRG Blood anisocytosis detection by light microscopy SLIGHT NRG Blood ovalocytes detection by light microscopy SLIGHT NRG Complete urinalysis with reflex to culture - 06/02/16 17:06 Urine color determination YELLOW NRG Urine clarity determination CLEAR NRG Urine pH measurement by test strip 6.5 5 -9 Specific gravity of urine by test strip 1.015 1.016-1.022 Urine protein assay by test strip, semi-quantitative 1+ NEGATIVE Urine glucose detection by automated test strip NEGATIVE NEGATIVE Erythrocytes detection in urine sediment by light microscopy 1+ NEGATIVE Urine ketones detection by automated test strip NEGATIVE NEGATIVE Urine nitrite detection by test strip NEGATIVE NEGATIVE Urine total bilirubin detection by test strip NEGATIVE NEGATIVE Urine urobilinogen measurement by automated test strip (mass/volume) NORMAL NORMAL Urine leukocyte esterase detection by dipstick 2+ NEGATIVE Automated urine sediment erythrocyte count by microscopy (number/high power field) [HPF] NRG Automated urine sediment leukocyte count by microscopy (number/high power field ) [HPF] NRG Bacteria detection in urine sediment by light microscopy LARGE NRG Crystals detection in urine sediment by light microscopy NONE NRG Casts detection in urine sediment by light microscopy NONE NRG Mucus detection in urine sediment by light microscopy NEGATIVE NRG Complete urinalysis with reflex to culture YES NRG Urine sodium measurement (moles/volume) - 06/02/16 17:06 Urine sodium measurement (moles/volume) 25 mmol/L 50-200 Urine chloride measurement (moles/volume) - 06/02/16 17:06 Urine chloride measurement (moles/volume) 47 mmol/L 110-250 Bacterial urine culture - 06/02/16 17:06 Bacterial urine culture [id number] NRG COLONY COUNT >100,000/ML NRG [facility];REPORTABLE SENSITIVITY REPORTED 06/03 16:25 NRG Bacterial susceptibility panel - 06/02/16 17:06 Gentamicin susceptibility test by minimum inhibitory concentration <= NRG Trimethoprim/sulfamethoxazole susceptibility test by minimum inhibitoryconcentration >= NRG Ampicillin susceptibility test by minimum inhibitory concentration >= NRG Tobramycin susceptibility test by minimum inhibitory concentration <= NRG Cefazolin susceptibility test by minimum inhibitory concentration <= NRG Ceftriaxone susceptibility test by minimum inhibitory concentration <= NRG Ampicillin/sulbactam susceptibility test by minimum inhibitory concentration 4 NRG Piperacillin/tazobactam susceptibility test by minimum inhibitory concentration <= NRG Ciprofloxacin susceptibility test by minimum inhibitory concentration 1 NRG Meropenem susceptibility test by minimum inhibitory concentration <= NRG Nitrofurantoin susceptibility test by minimum inhibitory concentration <= NRG Aztreonam susceptibility test by minimum inhibitory concentration <= NRG Extended spectrum beta lactamase (ESBL) producing bacteria susceptibility test by minimum inhibitory concentration - NRG Urine osmolality - 06/02/16 17:06 Urine osmolality 400 % 250-1200 Complete blood count (CBC) with automated white blood cell (WBC) differential - 06/03/16 10:04 Blood leukocytes automated count (number/volume) 8.5 10*3/ uL 4.3-11.0 Blood erythrocytes automated count (number/volume) 3.43 10*6 /uL 4.35-5.85 Venous blood hemoglobin measurement (mass/volume) 10.9 g/dL 11.5-16.0 Blood hematocrit (volume fraction) 33 % 35-52 Automated erythrocyte mean corpuscular volume 96 [foz_us] 80-99 Automated erythrocyte mean corpuscular hemoglobin (mass per erythrocyte) 32 pg 25-34 Automated erythrocyte mean corpuscular hemoglobin concentration measurement ( mass/volume) 33 g/dL 32-36 Automated erythrocyte distribution width ratio 14.5 % 10.0-14.5 Automated blood platelet count (count/volume) 398 10*3/uL 130-400 Automated blood platelet mean volume measurement 8.4 [foz_us ] 7.4-10.4 Automated blood neutrophils/100 leukocytes 89 % 42-75 Automated blood lymphocytes/100 leukocytes 10 % 12-44 Blood monocytes/100 leukocytes 2 % 0-12 Automated blood eosinophils/100 leukocytes 0 % 0-10 Automated blood basophils/100 leukocytes 0 % 0-10 Blood neutrophils automated count (number/volume) 7.6 10*3 1.8-7.8 Blood lymphocytes automated count (number/volume) 0.8 10*3 1.0-4.0 Blood monocytes automated count (number/volume) 0.1 10*3 0.0-1.0 Automated eosinophil count 0.0 10*3/uL 0.0-0.3 Automated blood basophil count (count/volume) 0.0 10*3/uL 0.0-0.1 Whole blood basic metabolic panel - 06/03/16 10:04 Serum or plasma sodium measurement (moles/volume) 128 mmol/ L 135-145 Serum or plasma potassium measurement (moles/volume) 4.3 mmol/L 3.6-5.0 Serum or plasma chloride measurement (moles/volume) 103 mmol /L 98-107 Carbon dioxide 17 mmol/L 21-32 Serum or plasma anion gap determination (moles/volume) 8 mmol/L 5-14 Serum or plasma urea nitrogen measurement (mass/volume) 19 mg/dL 7-18 Serum or plasma creatinine measurement (mass/volume) 0.98 mg /dL 0.60-1.30 Serum or plasma urea nitrogen/creatinine mass ratio 19 NRG Serum or plasma creatinine measurement with calculation of estimated glomerular filtration rate 57 NRG Serum or plasma glucose measurement (mass/volume) 190 mg/dL 70-105 Serum or plasma calcium measurement (mass/volume) 8.2 mg/dL 8.5-10.1 Complete urinalysis with reflex to culture - 06/25/16 13:40 Urine color determination ORANGE NRG Urine clarity determination SLIGHTLY CLOUDY NRG Urine pH measurement by test strip 6.5 5 -9 Specific gravity of urine by test strip 1.010 1.016-1.022 Urine protein assay by test strip, semi-quantitative 2+ NEGATIVE Urine glucose detection by automated test strip NEGATIVE NEGATIVE Erythrocytes detection in urine sediment by light microscopy 3+ NEGATIVE Urine ketones detection by automated test strip NEGATIVE NEGATIVE Urine nitrite detection by test strip POSITIVE NEGATIVE Urine total bilirubin detection by test strip 3+ NEGATIVE Urine urobilinogen measurement by automated test strip (mass/volume) 8 mg/dL NORMAL Urine leukocyte esterase detection by dipstick 2+ NEGATIVE Automated urine sediment erythrocyte count by microscopy (number/high power field) NONE NRG Automated urine sediment leukocyte count by microscopy (number/high power field ) > [HPF] NRG Bacteria detection in urine sediment by light microscopy MODERATE NRG Squamous epithelial cells detection in urine sediment by light microscopy RARE NRG Crystals detection in urine sediment by light microscopy NONE NRG Casts detection in urine sediment by light microscopy NONE NRG Mucus detection in urine sediment by light microscopy NEGATIVE NRG Complete urinalysis with reflex to culture YES NRG Bacterial urine culture - 06/25/16 13:40 Bacterial urine culture [id number] NRG COLONY COUNT 10,000/ML - 100,000/ML NRG FTX;REPORTABLE SENSITIVITIES REPORTED AT 0849, 2 [facility] URINE CULTURE RESULTS PLUS [facility] Bacterial susceptibility panel - 06/25/16 13:40 Gentamicin susceptibility test by minimum inhibitory concentration <= NRG Trimethoprim/sulfamethoxazole susceptibility test by minimum inhibitoryconcentration >= NRG Ampicillin susceptibility test by minimum inhibitory concentration >= NRG Tobramycin susceptibility test by minimum inhibitory concentration <= NRG Cefazolin susceptibility test by minimum inhibitory concentration <= NRG Ceftriaxone susceptibility test by minimum inhibitory concentration <= NRG Ampicillin/sulbactam susceptibility test by minimum inhibitory concentration 4 NRG Piperacillin/tazobactam susceptibility test by minimum inhibitory concentration <= NRG Ciprofloxacin susceptibility test by minimum inhibitory concentration 1 NRG Meropenem susceptibility test by minimum inhibitory concentration <= NRG Nitrofurantoin susceptibility test by minimum inhibitory concentration <= NRG Aztreonam susceptibility test by minimum inhibitory concentration <= NRG Extended spectrum beta lactamase (ESBL) producing bacteria susceptibility test by minimum inhibitory concentration - [facility] Bacterial susceptibility panel - 06/25/16 13:40 Gentamicin susceptibility test by minimum inhibitory concentration <= NRG Trimethoprim/sulfamethoxazole susceptibility test by minimum inhibitoryconcentration <= NRG Ampicillin susceptibility test by minimum inhibitory concentration <= NRG Tobramycin susceptibility test by minimum inhibitory concentration <= NRG Cefazolin susceptibility test by minimum inhibitory concentration <= NRG Ceftriaxone susceptibility test by minimum inhibitory concentration <= NRG Ampicillin/sulbactam susceptibility test by minimum inhibitory concentration <= NRG Piperacillin/tazobactam susceptibility test by minimum inhibitory concentration <= NRG Ciprofloxacin susceptibility test by minimum inhibitory concentration <= NRG Meropenem susceptibility test by minimum inhibitory concentration <= NRG Nitrofurantoin susceptibility test by minimum inhibitory concentration 128 NRG Aztreonam susceptibility test by minimum inhibitory concentration <= NRG Complete urinalysis with reflex to culture - 07/08/16 16:35 Urine color determination YELLOW NRG Urine clarity determination CLEAR NRG Urine pH measurement by test strip 6 5- 9 Specific gravity of urine by test strip 1.010 1.016-1.022 Urine protein assay by test strip, semi-quantitative NEGATIVE NEGATIVE Urine glucose detection by automated test strip NEGATIVE NEGATIVE Erythrocytes detection in urine sediment by light microscopy 2+ NEGATIVE Urine ketones detection by automated test strip NEGATIVE NEGATIVE Urine nitrite detection by test strip POSITIVE NEGATIVE Urine total bilirubin detection by test strip NEGATIVE NEGATIVE Urine urobilinogen measurement by automated test strip (mass/volume) NORMAL NORMAL Urine leukocyte esterase detection by dipstick 2+ NEGATIVE Automated urine sediment erythrocyte count by microscopy (number/high power field) [HPF] NRG Automated urine sediment leukocyte count by microscopy (number/high power field ) [HPF] NRG Bacteria detection in urine sediment by light microscopy LARGE NRG Crystals detection in urine sediment by light microscopy NONE NRG Casts detection in urine sediment by light microscopy NONE NRG Mucus detection in urine sediment by light microscopy NEGATIVE NRG Complete urinalysis with reflex to culture YES NRG Bacterial urine culture - 07/08/16 16:35 Bacterial urine culture [id number] NRG COLONY COUNT >100,000/ML NRG [facility];REPORTABLE SENSITIVITY REPORTED 07/10 07:55 NRG Bacterial susceptibility panel - 07/08/16 16:35 Gentamicin susceptibility test by minimum inhibitory concentration <= NRG Trimethoprim/sulfamethoxazole susceptibility test by minimum inhibitoryconcentration >= NRG Ampicillin susceptibility test by minimum inhibitory concentration >= NRG Tobramycin susceptibility test by minimum inhibitory concentration <= NRG Cefazolin susceptibility test by minimum inhibitory concentration <= NRG Ceftriaxone susceptibility test by minimum inhibitory concentration <= NRG Ampicillin/sulbactam susceptibility test by minimum inhibitory concentration 4 NRG Piperacillin/tazobactam susceptibility test by minimum inhibitory concentration <= NRG Ciprofloxacin susceptibility test by minimum inhibitory concentration 1 NRG Meropenem susceptibility test by minimum inhibitory concentration <= NRG Nitrofurantoin susceptibility test by minimum inhibitory concentration <= NRG Aztreonam susceptibility test by minimum inhibitory concentration <= NRG Extended spectrum beta lactamase (ESBL) producing bacteria susceptibility test by minimum inhibitory concentration - NR Blood lactic acid measurement (moles/volume) - 08/21/16 18:30 Blood lactic acid measurement (moles/volume) 1.03 mmol/L 0.50-2.00 Comprehensive metabolic panel - 08/21/16 18:30 Serum or plasma sodium measurement (moles/volume) 136 mmol/ L 135-145 Serum or plasma potassium measurement (moles/volume) 3.2 mmol/L 3.6-5.0 Serum or plasma chloride measurement (moles/volume) 102 mmol /L 98-107 Carbon dioxide 20 mmol/L 21-32 Serum or plasma anion gap determination (moles/volume) 14 mmol/L 5-14 Serum or plasma urea nitrogen measurement (mass/volume) 10 mg/dL 7-18 Serum or plasma creatinine measurement (mass/volume) 0.80 mg /dL 0.60-1.30 Serum or plasma urea nitrogen/creatinine mass ratio 13 NRG Serum or plasma creatinine measurement with calculation of estimated glomerular filtration rate > NRG Serum or plasma glucose measurement (mass/volume) 90 mg/dL 70-105 Serum or plasma calcium measurement (mass/volume) 9.0 mg/dL 8.5-10.1 Serum or plasma total bilirubin measurement (mass/volume) 0.4 mg/dL 0.1-1.0 Serum or plasma alkaline phosphatase measurement (enzymatic activity/volume) 61 U/L 40-136 Serum or plasma aspartate aminotransferase measurement (enzymatic activity/ volume) 13 U/L 5-34 Serum or plasma alanine aminotransferase measurement (enzymatic activity/volume ) < U/L 0-55 Serum or plasma protein measurement (mass/volume) 7.1 g/dL 6.4-8.2 Serum or plasma albumin measurement (mass/volume) 4.1 g/dL 3.2-4.5 Serum or plasma amylase measurement (enzymatic activity/volume) - 08/21/16 18: 30 Serum or plasma amylase measurement (enzymatic activity/volume) 102 U/L 25-125 Lipase - 08/21/16 18:30 Lipase 156 U/L 8-78 Serum or plasma ethanol measurement (mass/volume) - 08/21/16 18:30 Serum or plasma ethanol measurement (mass/volume) < mg/dL <10 Bacterial blood culture - 08/21/16 18:30 Bacterial blood culture NG NRG Complete urinalysis with reflex to culture - 08/21/16 18:45 Urine color determination YANET NRG Urine clarity determination CLEAR NRG Urine pH measurement by test strip 7 5- 9 Specific gravity of urine by test strip 1.010 1.016-1.022 Urine protein assay by test strip, semi-quantitative 1+ NEGATIVE Urine glucose detection by automated test strip NEGATIVE NEGATIVE Erythrocytes detection in urine sediment by light microscopy 2+ NEGATIVE Urine ketones detection by automated test strip NEGATIVE NEGATIVE Urine nitrite detection by test strip POSITIVE NEGATIVE Urine total bilirubin detection by test strip NEGATIVE NEGATIVE Urine urobilinogen measurement by automated test strip (mass/volume) 1 mg/dL NORMAL Urine leukocyte esterase detection by dipstick 3+ NEGATIVE Automated urine sediment erythrocyte count by microscopy (number/high power field) [HPF] NRG Automated urine sediment leukocyte count by microscopy (number/high power field ) > [HPF] NRG Bacteria detection in urine sediment by light microscopy MODERATE NRG Crystals detection in urine sediment by light microscopy NONE NRG Casts detection in urine sediment by light microscopy NONE NRG Mucus detection in urine sediment by light microscopy NEGATIVE NRG Complete urinalysis with reflex to culture YES NRG Urine drug screening test - 08/21/16 18:45 Urine phencyclidine detection by screening method NEGATIVE NEGATIVE Urine benzodiazepines detection by screening method POSITIVE NEGATIVE Urine cocaine detection NEGATIVE NEGATIVE Urine amphetamines detection by screening method NEGATIVE NEGATIVE Urine methamphetamine detection by screening method NEGATIVE NEGATIVE Urine cannabinoids detection by screening method NEGATIVE NEGATIVE Urine opiates detection by screening method NEGATIVE NEGATIVE Urine barbiturates detection NEGATIVE NEGATIVE Screening urine tricyclic antidepressants detection NEGATIVE NEGATIVE Urine methadone detection by screening method NEGATIVE NEGATIVE Urine oxycodone detection NEGATIVE NEGATIVE Urine propoxyphene detection NEGATIVE NEGATIVE Bacterial urine culture - 08/21/16 18:45 Bacterial urine culture [id number] NRG COLONY COUNT >100,000/ML NRG [facility]TX;REPORTABLE SENSITIVITY REPORTED AT 1651, 08-22-16 NR Bacterial susceptibility panel - 08/21/16 18:45 Gentamicin susceptibility test by minimum inhibitory concentration <= NRG Trimethoprim/sulfamethoxazole susceptibility test by minimum inhibitoryconcentration >= NRG Ampicillin susceptibility test by minimum inhibitory concentration >= NRG Tobramycin susceptibility test by minimum inhibitory concentration <= NRG Cefazolin susceptibility test by minimum inhibitory concentration <= NRG Ceftriaxone susceptibility test by minimum inhibitory concentration <= NRG Ampicillin/sulbactam susceptibility test by minimum inhibitory concentration 4 NRG Piperacillin/tazobactam susceptibility test by minimum inhibitory concentration <= NRG Ciprofloxacin susceptibility test by minimum inhibitory concentration 1 NRG Meropenem susceptibility test by minimum inhibitory concentration <= NRG Nitrofurantoin susceptibility test by minimum inhibitory concentration 32 NRG Aztreonam susceptibility test by minimum inhibitory concentration <= NRG Extended spectrum beta lactamase (ESBL) producing bacteria susceptibility test by minimum inhibitory concentration - NRG Complete blood count (CBC) with automated white blood cell (WBC) differential - 08/21/16 19:28 Blood leukocytes automated count (number/volume) 6.7 10*3/ uL 4.3-11.0 Blood erythrocytes automated count (number/volume) 3.99 10*6 /uL 4.35-5.85 Venous blood hemoglobin measurement (mass/volume) 12.3 g/dL 11.5-16.0 Blood hematocrit (volume fraction) 39 % 35-52 Automated erythrocyte mean corpuscular volume 99 [foz_us] 80-99 Automated erythrocyte mean corpuscular hemoglobin (mass per erythrocyte) 31 pg 25-34 Automated erythrocyte mean corpuscular hemoglobin concentration measurement ( mass/volume) 31 g/dL 32-36 Automated erythrocyte distribution width ratio 14.3 % 10.0-14.5 Automated blood platelet count (count/volume) 309 10*3/uL 130-400 Automated blood platelet mean volume measurement 9.9 [foz_us ] 7.4-10.4 Automated blood neutrophils/100 leukocytes 57 % 42-75 Automated blood lymphocytes/100 leukocytes 32 % 12-44 Blood monocytes/100 leukocytes 9 % 0-12 Automated blood eosinophils/100 leukocytes 1 % 0-10 Automated blood basophils/100 leukocytes 1 % 0-10 Blood neutrophils automated count (number/volume) 3.8 10*3 1.8-7.8 Blood lymphocytes automated count (number/volume) 2.1 10*3 1.0-4.0 Blood monocytes automated count (number/volume) 0.6 10*3 0.0-1.0 Automated eosinophil count 0.1 10*3/uL 0.0-0.3 Automated blood basophil count (count/volume) 0.1 10*3/uL 0.0-0.1 Bacterial blood culture - 08/21/16 19:28 Bacterial blood culture NG NRG Complete urinalysis with reflex to culture - 09/18/16 12:00 Urine color determination YELLOW NRG Urine clarity determination CLEAR NRG Urine pH measurement by test strip 5 5- 9 Specific gravity of urine by test strip 1.020 1.016-1.022 Urine protein assay by test strip, semi-quantitative 2+ NEGATIVE Urine glucose detection by automated test strip NEGATIVE NEGATIVE Erythrocytes detection in urine sediment by light microscopy 2+ NEGATIVE Urine ketones detection by automated test strip 3+ NEGATIVE Urine nitrite detection by test strip NEGATIVE NEGATIVE Urine total bilirubin detection by test strip NEGATIVE NEGATIVE Urine urobilinogen measurement by automated test strip (mass/volume) NORMAL NORMAL Urine leukocyte esterase detection by dipstick 1+ NEGATIVE Automated urine sediment erythrocyte count by microscopy (number/high power field) NONE NRG Automated urine sediment leukocyte count by microscopy (number/high power field ) RARE NRG Bacteria detection in urine sediment by light microscopy NEGATIVE NRG Squamous epithelial cells detection in urine sediment by light microscopy 0-2 NRG Crystals detection in urine sediment by light microscopy NONE NRG Casts detection in urine sediment by light microscopy PRESENT NRG Mucus detection in urine sediment by light microscopy NEGATIVE NRG Complete urinalysis with reflex to culture NO NRG Hyaline casts detection in urine sediment by light microscopy 2-5 NRG Complete blood count (CBC) with automated white blood cell (WBC) differential - 09/18/16 13:00 Blood leukocytes automated count (number/volume) 6.8 10*3/ uL 4.3-11.0 Blood erythrocytes automated count (number/volume) 4.86 10*6 /uL 4.35-5.85 Venous blood hemoglobin measurement (mass/volume) 14.8 g/dL 11.5-16.0 Blood hematocrit (volume fraction) 46 % 35-52 Automated erythrocyte mean corpuscular volume 96 [foz_us] 80-99 Automated erythrocyte mean corpuscular hemoglobin (mass per erythrocyte) 31 pg 25-34 Automated erythrocyte mean corpuscular hemoglobin concentration measurement ( mass/volume) 32 g/dL 32-36 Automated erythrocyte distribution width ratio 14.2 % 10.0-14.5 Automated blood platelet count (count/volume) 315 10*3/uL 130-400 Automated blood platelet mean volume measurement 10.2 [foz_ us] 7.4-10.4 Automated blood neutrophils/100 leukocytes 54 % 42-75 Automated blood lymphocytes/100 leukocytes 31 % 12-44 Blood monocytes/100 leukocytes 12 % 0-12 Automated blood eosinophils/100 leukocytes 1 % 0-10 Automated blood basophils/100 leukocytes 1 % 0-10 Blood neutrophils automated count (number/volume) 3.7 10*3 1.8-7.8 Blood lymphocytes automated count (number/volume) 2.1 10*3 1.0-4.0 Blood monocytes automated count (number/volume) 0.8 10*3 0.0-1.0 Automated eosinophil count 0.1 10*3/uL 0.0-0.3 Automated blood basophil count (count/volume) 0.1 10*3/uL 0.0-0.1 Comprehensive metabolic panel - 09/18/16 13:00 Serum or plasma sodium measurement (moles/volume) 138 mmol/ L 135-145 Serum or plasma potassium measurement (moles/volume) 3.0 mmol/L 3.6-5.0 Serum or plasma chloride measurement (moles/volume) 103 mmol /L 98-107 Carbon dioxide 20 mmol/L 21-32 Serum or plasma anion gap determination (moles/volume) 15 mmol/L 5-14 Serum or plasma urea nitrogen measurement (mass/volume) 10 mg/dL 7-18 Serum or plasma creatinine measurement (mass/volume) 0.94 mg /dL 0.60-1.30 Serum or plasma urea nitrogen/creatinine mass ratio 11 NRG Serum or plasma creatinine measurement with calculation of estimated glomerular filtration rate 60 NRG Serum or plasma glucose measurement (mass/volume) 108 mg/dL 70-105 Serum or plasma calcium measurement (mass/volume) 10.2 mg/ dL 8.5-10.1 Serum or plasma total bilirubin measurement (mass/volume) 0.4 mg/dL 0.1-1.0 Serum or plasma alkaline phosphatase measurement (enzymatic activity/volume) 68 U/L 40-136 Serum or plasma aspartate aminotransferase measurement (enzymatic activity/ volume) 18 U/L 5-34 Serum or plasma alanine aminotransferase measurement (enzymatic activity/volume ) 11 U/L 0-55 Serum or plasma protein measurement (mass/volume) 8.4 g/dL 6.4-8.2 Serum or plasma albumin measurement (mass/volume) 4.8 g/dL 3.2-4.5 Serum or plasma amylase measurement (enzymatic activity/volume) - 09/18/16 13: 00 Serum or plasma amylase measurement (enzymatic activity/volume) 60 U/L 25-125 Encounters ACCT No. Visit Date/Time Discharge Status Pt. Type Provider Facility Loc./Unit Complaint [id number] 08/25/2014 15:28:00 08/25/2014 23: 59:59 CLS Outpatient VALERIE ZAVALA APRN [id number] 07/14/2014 09:55:00 07/14/2014 23: 59:59 CLS Outpatient KARO YATES DO [id number] 05/31/2014 09:29:00 05/31/2014 23: 59:59 CLS Outpatient SALLY CHILD WELFARE ASSISTANTSERINAVALERIE S [id number] 05/31/2014 09:29:00 05/31/2014 23: 59:59 CLS Outpatient SALLY CHILD WELFARE ASSISTANT, VALERIE S [id number] 04/07/2014 12:21:00 04/07/2014 23: 59:59 CLS Outpatient SALLY CHILD WELFARE ASSISTANT, VALERIE S [id number] 04/07/2014 12:21:00 04/07/2014 23: 59:59 CLS Outpatient KARO YATES DO [id number] 02/18/2014 13:43:00 02/18/2014 23: 59:59 CLS Outpatient SALLY CHILD WELFARE ASSISTANT, VALERIE S [id number] 01/23/2014 17:27:00 01/23/2014 23: 59:59 CLS Outpatient KARO YATES DO [id number] 12/03/2013 09:16:00 12/03/2013 23: 59:59 CLS Outpatient SALLY CHILD WELFARE ASSISTANT, VALERIE S [id number] 12/03/2013 09:16:00 12/03/2013 23: 59:59 CLS Outpatient SALLY CHILD WELFARE ASSISTANT, VALERIE S [id number] 10/17/2013 13:45:00 10/17/2013 23: 59:59 CLS Outpatient SALLY CHILD WELFARE ASSISTANT, VALERIE S [id number] 09/09/2013 10:47:00 09/09/2013 23: 59:59 CLS Outpatient SALLY CHILD WELFARE ASSISTANT, VALERIE S [id number] 06/04/2013 10:50:00 06/04/2013 23: 59:59 CLS Outpatient SALLY CHILD WELFARE ASSISTANT, VALERIE S [id number] 06/04/2013 10:50:00 06/04/2013 23: 59:59 CLS Outpatient SALLY CHILD WELFARE ASSISTANT, VALERIE S [id number] 05/07/2013 11:28:00 05/07/2013 23: 59:59 CLS Outpatient SALLY CHILD WELFARE ASSISTANT, VALERIE S [id number] 04/10/2013 16:12:00 04/10/2013 23: 59:59 CLS Outpatient SALLY CHILD WELFARE ASSISTANT, VALERIE S [id number] 04/10/2013 16:12:00 04/10/2013 23: 59:59 CLS Outpatient KARO YATES DO [id number] 04/06/2013 11:17:00 04/06/2013 23: 59:59 CLS Outpatient MILAN DOKARO [place] [id number] 04/02/2013 10:20:00 04/02/2013 23: 59:59 CLS Outpatient VALERIE ZAVALA APRN [id number] 02/04/2013 11:19:00 02/04/2013 23: 59:59 CLS Outpatient MICHELLE CAMARGO MD [id number] 02/04/2013 11:19:00 02/04/2013 23: 59:59 CLS Outpatient SALLYVALERIE MARIN APRN S [id number] 08/10/2012 09:19:00 08/10/2012 23: 59:59 CLS Outpatient MILAN DOHALEYAudra Gonsalez [id number] 07/30/2012 08:25:00 07/30/2012 23: 59:59 CLS Outpatient VALERIE ZAVALA APRN S [id number] 07/04/2012 13:20:00 07/04/2012 23: 59:59 CLS Outpatient VALERIE ZAVALA APRN S [id number] 06/29/2012 08:10:00 06/29/2012 23: 59:59 CLS Outpatient KARO YATES DO [id number] 06/13/2012 14:07:00 06/13/2012 23: 59:59 CLS Outpatient VALERIE ZAVALA APRN S [id number] 06/05/2012 11:37:00 06/05/2012 23: 59:59 CLS Outpatient [id number] 05/29/2012 16:36:00 05/29/2012 23: 59:59 CLS Outpatient ZORAIDA ESPAÑA APRN [id number] 03/30/2012 09:50:00 03/30/2012 23: 59:59 CLS Outpatient MILAN DOKARO [id number] 02/14/2012 13:28:00 02/14/2012 23: 59:59 CLS Outpatient YATES DOKARO [id number] 11/13/2012 14:22:00 Document Registration [id number] 11/13/2012 14:22:00 Document Registration [id number] 09/21/2012 09:46:00 Document Registration
--- OUTSIDE RECORDS SUMMARY | 2016-09-25 06:29 | XMS REPORT ---
Author Author VALERIE ZAVALA Organization [employer] Address Unknown Phone Unavailable Care Team Providers Care Court Stenographer Name Role Phone VALERIE ZAVALA CP Unavailable [...]
--- OUTSIDE RECORDS SUMMARY | 2016-09-25 06:30 | XMS REPORT ---
Author Author VALERIE ZAVALA Organization [employer] Address Unknown Phone Unavailable Care Team Providers Care Director Of Rehabilitative Services Name Role Phone VALERIE ZAVALA CP Unavailable [...] Other and unspecified hyperlipidemia 272.4 Active Medications No Known Medications Results No Known Results Summary Purpose [employer] Submission
--- OUTSIDE RECORDS SUMMARY | 2016-09-25 06:30 | XMS REPORT ---
Author Author LUISA DAVIS Organization [employer] Address Unknown Phone Unavailable Care Team Providers Care Trust Mail Clerk Name Role Phone LUISA DAVIS CP Unavailable [...]
--- OUTSIDE RECORDS SUMMARY | 2016-09-25 06:30 | XMS REPORT ---
Author Author VALERIE ZAVALA Organization [facility] Address [address] [place] [address] Care Team Providers Care Ambulatory Care Name Role Phone VALERIE ZAVALA Unavailable PROBLEMS Type Condition ICD9-CM Code [id number] Code Onset Dates Condition Status SNOMED Code Problem Bone pain M89.8X9 Active 61394337 Problem Chronic pain G89.29 Active 50800943 Problem Back pain M54.9 Active 687668247 Problem Insomnia, unspecified type G47.00 Active 461088139 Problem Hypokalemia E87.6 Active 832023137 Problem Weight loss R63.4 Active 785562794 Problem Weight decrease R63.4 Active 506883356 Problem Depression, unspecified depression type F32.9 Active 74835027 Problem Right upper quadrant abdominal pain R10.11 Active 143149250 Problem Tobacco abuse Z72.0 Active 40774167 Problem Chronic airway obstruction, not elsewhere classified 496 Active 81320436 Problem Calculus of kidney 592.0 Active 68741841 Problem Chronic pain syndrome 338.4 Active 362208230 Problem Other and unspecified hyperlipidemia 272.4 Active 25090174 Problem Right foot pain M79.671 Active 30294358 Problem Right low back pain, with sciatica presence unspecified M54.5 Active 020353280 Problem Abdominal pain, generalized 789.07 Active 204819935 Problem Pain in right knee M25.561 Active 15743568 Problem Generalized anxiety disorder 300.02 Active 65247537 Problem UTI symptoms R39.9 Active ALLERGIES Unknown Allergies SOCIAL HISTORY No smoking Hx information available PLAN OF CARE VITAL SIGNS MEDICATIONS Medication Instructions Dosage Frequency Start Date End Date Duration Status Chlordiazepoxide HCl 10 mg Orally 1 in AM and 1 in afternoon and 2 at hs 1 capsule Active RESULTS No Results PROCEDURES No Known procedures IMMUNIZATIONS No Known Immunizations
--- OUTSIDE RECORDS SUMMARY | 2016-09-25 06:30 | XMS REPORT ---
Author Author VALERIE ZAVALA Organization [employer] Address Unknown Phone Unavailable Care Team Providers Care Tube Lancer Name Role Phone VALERIE ZAVALA CP Unavailable Allergies No Known Allergies Problems Problem Type Condition Code Onset Dates Condition Status Problem Right low back pain, with sciatica presence unspecified M54.5 Active Problem UTI symptoms R39.9 Active Problem Pain in right knee M25.561 Active Problem Tobacco abuse Z72.0 Active Problem Weight decrease R63.4 Active Problem Right upper quadrant abdominal pain R10.11 Active Problem Back pain M54.9 Active Problem Bone pain M89.8X9 Active Problem Depression, unspecified depression type F32.9 Active Problem Chronic pain G89.29 Active Problem Hypokalemia E87.6 Active Problem Chronic pain syndrome 338.4 Active Assessment Chronic pain G89.29 Active Problem Calculus of kidney 592.0 Active Problem Abdominal pain, generalized 789.07 Active Problem Other and unspecified hyperlipidemia 272.4 Active Problem Generalized anxiety disorder 300.02 Active Problem Chronic airway obstruction, not elsewhere classified 496 Active Problem Right foot pain M79.671 Active Medications Medication Code System Code Instructions Start Date End Date Status Dosage Percocet [facility] [address]-02 10-325 MG Orally every 6 hrs August 13, 2015 2 tablets Results No Known Results Summary Purpose [employer] Submission
--- OUTSIDE RECORDS SUMMARY | 2016-09-25 06:30 | XMS REPORT ---
Author Author VALERIE ZAVALA Organization [employer] Address Unknown Phone Unavailable Care Team Providers Care Cookie Breaker Name Role Phone VALERIE ZAVALA CP Unavailable [...] Date End Date Status Dosage Chlordiazepoxide HCl [facility] [address]-85 10 mg Orally 1 in AM and 1 in afternoon and 2 at hs 1 capsule Results No Known Results Summary Purpose [employer] Submission
--- OUTSIDE RECORDS SUMMARY | 2016-09-25 06:31 | XMS REPORT ---
Author Author VALERIE ZAVALA Organization [employer] Address Unknown Phone Unavailable Care Team Providers Care Coordinate Measuring Machine Operator Name Role Phone VALERIE ZAVALA CP [...] Date End Date Status Dosage Dicyclomine HCl [facility] [address]-78 20 mg Orally 3 times a day 1 tablet 30 to 60 minutes before meals Results No Known Results Summary Purpose [employer] Submission
--- OUTSIDE RECORDS SUMMARY | 2016-09-25 06:31 | XMS REPORT ---
Author Author VALERIE ZAVALA Organization [employer] Address Unknown Phone Unavailable Care Team Providers Care Precision Thread Grinder Operator Name Role Phone VALERIE ZAVALA CP Unavailable Allergies No Known Allergies Problems Problem Type Condition Code Onset Dates Condition Status Assessment Hypokalemia E87.6 Active Problem Abdominal pain, generalized 789.07 Active Problem Calculus of kidney 592.0 Active Problem Generalized anxiety disorder 300.02 Active Problem Chronic pain syndrome 338.4 Active Problem Hypokalemia E87.6 Active Problem Chronic airway obstruction, not elsewhere classified 496 Active Problem Other and unspecified hyperlipidemia 272.4 Active Medications Medication Code System Code Instructions Start Date End Date Status Dosage Potassium Chloride ER [facility] [address]-51 20 MEQ Orally Apr 01, 2015 as directed Results No Known Results Summary Purpose [employer] Submission
--- OUTSIDE RECORDS SUMMARY | 2016-09-25 06:31 | XMS REPORT ---
Author Author VALERIE ZAVALA Organization [facility] Address [address] [place] [address] Care Team Providers Care Operations Section Manager Name Role Phone VALERIE ZAVALA Unavailable PROBLEMS Type Condition ICD9-CM Code [id number] Code Onset Dates Condition Status SNOMED Code Problem Bone pain M89.8X9 Active 14898279 Problem Chronic pain G89.29 Active 85059851 Problem Back pain M54.9 Active 663787809 Problem Insomnia, unspecified type G47.00 Active 178308377 Problem Hypokalemia E87.6 Active 621477862 Problem Weight loss R63.4 Active 533772656 Problem Weight decrease R63.4 Active 820196969 Problem Depression, unspecified depression type F32.9 Active 50822608 Problem Right upper quadrant abdominal pain R10.11 Active 939281348 Problem Tobacco abuse Z72.0 Active 11854745 Problem Chronic airway obstruction, not elsewhere classified 496 Active 20772460 Problem Calculus of kidney 592.0 Active 73756668 Problem Chronic pain syndrome 338.4 Active 520609373 Problem Other and unspecified hyperlipidemia 272.4 Active 70322036 Problem Right foot pain M79.671 Active 60503040 Problem Right low back pain, with sciatica presence unspecified M54.5 Active 506796169 Problem Abdominal pain, generalized 789.07 Active 077638316 Problem Pain in right knee M25.561 Active 00614013 Problem Generalized anxiety disorder 300.02 Active 57767707 Problem UTI symptoms R39.9 Active ALLERGIES Unknown Allergies SOCIAL HISTORY No smoking Hx information available PLAN OF CARE VITAL SIGNS MEDICATIONS Medication Instructions Dosage Frequency Start Date End Date Duration Status Percocet 10-325 MG Orally 4 times a day 1 tablet as needed 6h Jul, 28 days Active RESULTS No Results PROCEDURES No Known procedures IMMUNIZATIONS No Known Immunizations
--- OUTSIDE RECORDS SUMMARY | 2016-09-25 06:31 | XMS REPORT ---
Author Author VALERIE ZAVALA [facility] [employer] Address Unknown Phone Unavailable Care Team Providers Care Patient Access Director Name Role Phone VALERIE ZAVALA CP Unavailable [...] Instructions Start Date End Date Status Dosage Zantac [facility] [address]-88 150 MG Orally Twice a day 1-2 tablets as needed for heartburn Linzess [facility] 91376681911 290 MCG Orally Once a day 1 capsule Chlordiazepoxide HCl [facility] [address]-09 10 mg Orally 1 in AM and 1 in afternoon and 2 at hs 1 capsule Dicyclomine HCl [facility] [address]-79 20 mg Orally 3 times a day 1 tablet 30 to 60 minutes before meals Ibuprofen [facility] [address]-27 600 MG Orally Three times a day 1 tablet with food as needed Percocet [facility] [address]-94 10-325 MG Orally 4 times a day August 13, 2015 1 tablet as needed Potassium Chloride ER [facility] [address]-71 20 MEQ Orally Once a day Apr 01, [address] [facility] 71812097975 10 MG Orally Once a day 1 tablet Results No Known Results Summary Purpose [employer] Submission
--- OUTSIDE RECORDS SUMMARY | 2016-09-25 06:31 | XMS REPORT ---
Author Author VALERIE ZAVALA Organization [facility] Address [address] [place] [address] Care Team Providers Care Supply Chain Development Manager Name Role Phone VALERIE ZAVALA Unavailable PROBLEMS Type Condition ICD9-CM Code UYS53-SR Code Onset Dates Condition Status SNOMED Code Problem Bone pain M89.8X9 Active 92468424 Problem Chronic pain G89.29 Active 54677575 Problem Back pain M54.9 Active 810377696 Problem Insomnia, unspecified type G47.00 Active 389824851 Problem Hypokalemia E87.6 Active 574393200 Problem Weight loss R63.4 Active 555357373 Problem Weight decrease R63.4 Active 300739966 Problem Depression, unspecified depression type F32.9 Active 35296651 Problem Right upper quadrant abdominal pain R10.11 Active 451332552 Problem Tobacco abuse Z72.0 Active 27668741 Problem Chronic airway obstruction, not elsewhere classified 496 Active 78890115 Problem Calculus of kidney 592.0 Active 09567743 Problem Chronic pain syndrome 338.4 Active 644347161 Problem Other and unspecified hyperlipidemia 272.4 Active 72040372 Problem Right foot pain M79.671 Active 74336535 Problem Right low back pain, with sciatica presence unspecified M54.5 Active 899549637 Problem Abdominal pain, generalized 789.07 Active 484920863 Problem Pain in right knee M25.561 Active 13572532 Problem Generalized anxiety disorder 300.02 Active 64823304 Problem UTI symptoms R39.9 Active ALLERGIES Unknown [...]
--- OUTSIDE RECORDS SUMMARY | 2016-09-25 06:31 | XMS REPORT ---
Author Author VALERIE ZAVALA Organization [employer] Address Unknown Phone Unavailable Care Team Providers Care Senior Administrative Assistant Name Role Phone VALERIE ZAVALA CP Unavailable [...] Instructions Start Date End Date Status Dosage Gabapentin [facility] [address]-41 [address] Rogel Three times a day May 22, 2015 1 capsule Results No Known Results Summary Purpose [employer] Submission
--- OUTSIDE RECORDS SUMMARY | 2016-09-25 06:31 | XMS REPORT ---
Author Author VALERIE ZAVALA Organization [employer] Address Unknown Phone Unavailable Care Team Providers Care Cook Jelly Name Role Phone VALERIE ZAVALA CP Unavailable [...] Active Problem Back pain M54.9 Active Assessment Dysuria R30.0 Active Problem Hypokalemia E87.6 Active Problem Chronic [...]
--- OUTSIDE RECORDS SUMMARY | 2016-09-25 06:32 | XMS REPORT ---
Author Author VALERIE ZAVALA Organization [employer] Address Unknown Phone Unavailable Care Team Providers Care Software Quality Specialist Name Role Phone VALERIE ZAVALA CP Unavailable Allergies No Known Allergies Problems Problem Type Condition Code Onset Dates Condition Status Problem Chronic pain syndrome 338.4 Active Problem Chronic airway obstruction, not elsewhere classified 496 Active Problem Other and unspecified hyperlipidemia 272.4 Active Problem Hypokalemia E87.6 Active Problem Pain in right knee M25.561 Active Problem Right low back pain, with sciatica presence unspecified M54.5 Active Problem UTI symptoms R39.9 Active Problem Abdominal pain, generalized 789.07 Active Problem Calculus of kidney 592.0 Active Problem Right foot pain M79.671 Active Problem Generalized anxiety disorder 300.02 Active Medications Medication Code System Code Instructions Start Date End Date Status Dosage Losartan Potassium [facility] [address]-56 100 MG Orally Once a day 1 tablet Results No Known Results Summary Purpose [employer] Submission
--- OUTSIDE RECORDS SUMMARY | 2016-09-25 06:32 | XMS REPORT ---
Author Author VALERIE ZAVALA Organization [facility] Address [address] [place] [address] Care Team Providers Care Business Solutions Analyst Name Role Phone VALERIE ZAVALA Unavailable PROBLEMS Type Condition ICD9-CM Code ITB73-PA Code Onset Dates Condition Status SNOMED Code Problem Bone pain M89.8X9 Active 64407075 Problem Chronic pain G89.29 Active 65841805 Problem Back pain M54.9 Active 028336481 Problem Insomnia, unspecified type G47.00 Active 817203924 Problem Hypokalemia E87.6 Active 543476729 Problem Weight loss R63.4 Active 972521234 Problem Weight decrease R63.4 Active 302317547 Problem Depression, unspecified depression type F32.9 Active 18766114 Problem Right upper quadrant abdominal pain R10.11 Active 052353673 Problem Tobacco abuse Z72.0 Active 77794583 Problem Chronic airway obstruction, not elsewhere classified 496 Active 26521960 Problem Calculus of kidney 592.0 Active 42036668 Problem Chronic pain syndrome 338.4 Active 663429794 Problem Other and unspecified hyperlipidemia 272.4 Active 86059938 Problem Right foot pain M79.671 Active 12421763 Problem Right low back pain, with sciatica presence unspecified M54.5 Active 823625527 Problem Abdominal pain, generalized 789.07 Active 786783756 Problem Pain in right knee M25.561 Active 08648287 Problem Generalized anxiety disorder 300.02 Active 64518067 Problem UTI symptoms R39.9 Active ALLERGIES Unknown Allergies SOCIAL HISTORY No smoking Hx information available PLAN OF CARE VITAL SIGNS MEDICATIONS Medication Instructions Dosage Frequency Start Date End Date Duration Status Lyrica 50 mg Orally Once a day 2 capsules at bedtime 24h Dec, 28 days Active Percocet 10-325 MG Orally 4 times a day 1 tablet as needed 6h Jul, 28 days Active RESULTS No Results PROCEDURES No Known procedures IMMUNIZATIONS No Known Immunizations
--- OUTSIDE RECORDS SUMMARY | 2016-09-25 06:32 | XMS REPORT ---
Author Author VALERIE ZAVALA Organization [employer] Address Unknown Phone Unavailable Care Team Providers Care Caustic Pump Operator Name Role Phone VALERIE ZAVALA CP [...] Start Date End Date Status Dosage Elavil [facility] [address]-94 25 MG Orally Once a day Mar 24, 2016 1-2 tablets at bedtime as needed Results No Known Results Summary Purpose [employer] Submission
--- OUTSIDE RECORDS SUMMARY | 2016-09-25 06:32 | XMS REPORT ---
Author Author VALERIE ZAVALA Organization [employer] Address Unknown Phone Unavailable Care Team Providers Care Stitcher Operator Name Role Phone VALERIE ZAVALA CP [...] Date End Date Status Dosage Chlordiazepoxide HCl [facility] [address]-95 10 MG TAKE ONE CAPSULE BY MOUTH THREE TIMES DAILY NEEDED Results No Known Results Summary Purpose [employer] Submission
--- OUTSIDE RECORDS SUMMARY | 2016-09-25 06:32 | XMS REPORT ---
Author Author VALERIE ZAVALA Organization [employer] Address Unknown Phone Unavailable Care Team Providers Care Data Management Name Role Phone VALERIE ZAVALA CP Unavailable [...] Other and unspecified hyperlipidemia 272.4 Active Assessment Chronic pain G89.29 Active Problem Hypokalemia E87.6 Active Problem Abdominal pain, generalized 789.07 Active Problem Generalized anxiety disorder 300.02 Active Problem Chronic airway obstruction, not elsewhere classified 496 Active Problem Right foot pain M79.671 Active Problem Calculus of kidney 592.0 Active Problem Right low back pain, with sciatica presence unspecified M54.5 Active Medications Medication Code System Code Instructions Start Date End Date Status Dosage Percocet [facility] [address]-05 10-325 MG Orally every 6 hrs August 13, 2015 Dec 14, 2015 2 tablets Results No Known Results Summary Purpose [employer] Submission
--- OUTSIDE RECORDS SUMMARY | 2016-09-25 06:32 | XMS REPORT ---
Author Author VALERIE ZAVALA Organization [employer] Address Unknown Phone Unavailable Care Team Providers Care Sales Account Representative Name Role Phone VALERIE ZAVALA CP Unavailable [...] Date End Date Status Dosage Percocet [facility] [address]-03 10-325 MG Orally August 13, 2015 2 tablets in the morning, 1 tablet at noon, 2 tablets at bedtime Lyrica [facility] [address]-88 100 MG Orally Twice a day Dec 14, 2015 1 capsule Results No Known Results Summary Purpose [employer] Submission
--- OUTSIDE RECORDS SUMMARY | 2016-09-25 06:32 | XMS REPORT ---
Author Author VALERIE ZAVALA Organization [employer] Address Unknown Phone Unavailable Care Team Providers Care Bulk Plant Manager Name Role Phone VALERIE ZAVALA CP Unavailable [...]
--- OUTSIDE RECORDS SUMMARY | 2016-09-25 06:32 | XMS REPORT ---
Author Author VALERIE ZAVALA Organization [employer] Address Unknown Phone Unavailable Care Team Providers Care Master Merchandiser Name Role Phone VALERIE ZAVALA CP Unavailable [...] Start Date End Date Status Dosage Percocet [facility] [address]-38 10-325 MG Orally every 6 hrs August 13, 2015 2 tablets Results No Known Results Summary Purpose [employer] Submission
--- OUTSIDE RECORDS SUMMARY | 2016-09-25 06:32 | XMS REPORT ---
Author MICHELLE Green Organization [employer] Address Unknown Phone Unavailable Care Team Providers Care Dinking Machine Operator Name Role Phone MICHELLE CAMARGO CP Unavailable Allergies No Known Allergies Problems [...] Start Date End Date Status Dosage Percocet [facility] [address]-74 10-325 MG Orally 4 times a day August 13, 2015 1 tablet as needed Results No Known Results Summary Purpose [employer] Submission
--- OUTSIDE RECORDS SUMMARY | 2016-09-25 06:32 | XMS REPORT ---
Author Author VALERIE ZAVALA Organization [employer] Address Unknown Phone Unavailable Care Team Providers Care Still Operator Name Role Phone VALERIE ZAVALA CP [...]
--- OUTSIDE RECORDS SUMMARY | 2016-09-25 06:32 | XMS REPORT ---
Author Author VALERIE ZAVALA Organization [employer] Address Unknown Phone Unavailable Care Team Providers Care Housecleaner Floor Name Role Phone VALERIE ZAVALA CP Unavailable [...]
--- OUTSIDE RECORDS SUMMARY | 2016-09-25 06:33 | XMS REPORT ---
Author Author VALERIE ZAVALA Organization [facility] Address [address] [place] [address] Care Team Providers Care Endocrinologist Name Role Phone VALERIE ZAVALA Unavailable PROBLEMS Type Condition ICD9-CM Code [id number] Code Onset Dates Condition Status SNOMED Code Problem UTI symptoms R39.9 Active Problem Back pain M54.9 Active 433235132 Problem Bone pain M89.8X9 Active 96398560 Problem Weight loss R63.4 Active 993527742 Assessment Dysthymia F34.1 Dec, Active 74525145 Problem Right upper quadrant abdominal pain R10.11 Active 008793779 Assessment Insomnia, unspecified type G47.00 Dec, Active 348153926 Problem Depression, unspecified depression type F32.9 Active 02585514 Problem Chronic pain G89.29 Active 43403753 Problem Tobacco abuse Z72.0 Active 36115058 Problem Weight decrease R63.4 Active 755423883 Problem Other and unspecified hyperlipidemia 272.4 Active 73413998 Problem Chronic airway obstruction, not elsewhere classified 496 Active 22672907 Problem Hypokalemia E87.6 Active 741166595 Problem Chronic pain syndrome 338.4 Active 750005853 Problem Generalized anxiety disorder 300.02 Active 14444544 Problem Right foot pain M79.671 Active 43065525 Problem Calculus of kidney 592.0 Active 95025977 Problem Right low back pain, with sciatica presence unspecified M54.5 Active 315244585 Problem Abdominal pain, generalized 789.07 Active 769710005 Problem Pain in right knee M25.561 Active 61073386 ALLERGIES Substance Reaction Event Type Date Status Sulfur rash Drug Allergy Dec, Active Remeron itching Drug Allergy Dec, Active Morphine Sulfate nausea Drug Allergy Dec, Active Fentanyl 25 Mcg/hr Patch 72 Hr Unknown Non Drug Allergy Dec, Active SOCIAL HISTORY No smoking Hx information available PLAN OF CARE VITAL SIGNS Height 64 in 2016-01-13 Weight 122.8 lbs 2016-01-13 Heart Rate 88 bpm 2016-01-13 Respiratory Rate 20 2016-01-13 BMI 21.08 kg/m2 2016-01-13 Blood pressure systolic 134 mmHg 2016-01-13 Blood pressure diastolic 80 mmHg 2016-01-13 MEDICATIONS Medication Instructions Dosage Frequency Start Date End Date Duration Status Linzess 290 MCG Orally Once a day 1 capsule 24h 90 Active Elavil 75 MG Orally Once a day 1 tablet at bedtime 24h Dec, Active Lyrica 50 MG Orally 3 times a day 1 capsule 8h Dec, 07 days Active Potassium Chloride ER 20 MEQ Orally Once a day 1 capsule 24h Mar, 90 days Active Chlordiazepoxide HCl 10 mg Orally 1 in AM and 1 in afternoon and 2 at hs 1 capsule 28 Active Ibuprofen 600 MG Orally Three times a day 1 tablet with food as needed 8h Active Zantac 150 MG Orally Twice a day 1-2 tablets as needed for heartburn 12h Active Percocet 10-325 MG Orally 4 times a day 1 tablet as needed 6h Jul, 07 days Active Dicyclomine HCl 20 mg Orally 3 times a day 1 tablet 30 to 60 minutes before meals 8h 90 days Active Loratadine 10 MG Orally Once a day 1 tablet 24h 30 Active RESULTS No Results PROCEDURES Procedure Date Ordered Related Diagnosis Body Site [facility] VISIT ESTABLISHED PATIENT Jan 13, 2016 Office Visit, Est Pt., Level 3 Jan 13, 2016 IMMUNIZATIONS No Known Immunizations
--- OUTSIDE RECORDS SUMMARY | 2016-09-25 06:33 | XMS REPORT ---
Author VALERIE Lama [facility] e[employer] Address Unknown Phone Unavailable Care Team Providers Care Production Line Mechanic Name Role Phone VALERIE ZAVALA CP Unavailable Allergies, Adverse Reactions, Alerts Substance Reaction Event Type Sulfur rash Drug Allergy Fentanyl 25 Mcg/hr Patch 72 Hr Info Not Available Non Drug Allergy Problems Problem Type Condition Code Onset Dates Condition Status Assessment Pain in right knee M25.561 Active Assessment Pain in right leg M79.604 Active Assessment Encounter for immunization Z23 Active Assessment Hypokalemia E87.6 Active Problem Abdominal pain, generalized 789.07 Active Problem Calculus of kidney 592.0 Active Problem Generalized anxiety disorder 300.02 Active Problem Chronic pain syndrome 338.4 Active Problem Hypokalemia E87.6 Active Problem Chronic airway obstruction, not elsewhere classified 496 Active Problem Other and unspecified hyperlipidemia 272.4 Active Medications Medication Code System Code Instructions Start Date End Date Status Dosage Atorvastatin Calcium [facility] 36714734175 40 MG TAKE ONE TABLET BY MOUTH DAILY Linzess [facility] 95863611100 290 MCG Orally Once a day 1 capsule Percocet [facility] [address]-66 7.5-325 MG Orally every 6 hrs 1 tablet as needed Chlordiazepoxide HCl [facility] 53506082771 10 MG TAKE ONE CAPSULE BY MOUTH THREE TIMES DAILY NEEDED Percocet [facility] [address]-30 10-325 MG Orally every [address] Diez Mar 30, 2015 2 tablet as needed Norvasc [facility] [address]-81 10 MG Orally Once a day 1 tablet Ibuprofen [facility] [address]-73 600 MG Orally Three times a day 1 tablet with food as needed Amlodipine Besylate ND 64004300084 10 MG TAKE ONE TABLET BY MOUTH DAILY Losartan Potassium ND 91251058582 100 MG Orally as directed Zantac [facility] [address]-28 150 MG Orally Twice a day 1-2 tablets as needed for heartburn Loratadine [facility] 52970216723 10 MG Orally Once a day 1 tablet Dicyclomine HCl [facility] 38772868021 20 MG TAKE ONE TABLET BY MOUTH EVERY 6 HOURS 30 TO 60 MINUTES BEFORE MEALS Lisinopril [facility] [address]-48 40 MG Orally Once a day 1 tablet Procedures Procedure Coding System Code Date [facility] VISIT ESTABLISHED PATIENT CPT-4 G0467 Mar 30, 2015 Office Visit, Est Pt., Level 3 CPT-4 60193 Mar 30, 2015 [facility] CPT-4 NOBLL Mar 30, 2015 IMMUNIZATION ADMIN, EACH ADD (please include units) CPT-4 29046 Mar 30, 2015 PPV23 (PNEUMOVAX) CPT-4 02887 Mar 30, 2015 VENIPUNCT, ROUTINE* CPT-4 52013 Mar 30, 2015 SINGLE IMMUNIZATION ADMIN CPT-4 38042 Mar 30, 2015 FLUARIX QUAD (3 & UP)-GSK-2014 CPT-4 62018 Mar 30, 2015 Vital Signs Date/Time: Mar 30, 2015 Temperature 98.4 F Weight 135.4 lbs Height 64 in BMI 23.24 Index Blood Pressure Diastolic 80 mmHg Blood Pressure Systolic 140 mmHg Cardiac Monitoring Heart Rate 68 bpm Results Name Result Date Reference Range Unit Abnormality Flag ROUTINE VENIPUNCTURE BMP Immunizations Vaccine Administration Date FLUARIX QUAD (3 & UP)-GSK-2014Mar 30, 2015 PPV23 (PNEUMOVAX) Mar 30, 2015 Summary Purpose eClinicalWorks Submission
--- OUTSIDE RECORDS SUMMARY | 2016-09-25 06:33 | XMS REPORT ---
Author Author VALERIE ZAVALA [facility] Address [address] [place] [address] Care Team Providers Care Programs Assistant Name Role Phone VALERIE ZAVALA Unavailable PROBLEMS Type Condition ICD9-CM Code CFP42-DF Code Onset Dates Condition Status SNOMED Code Problem UTI symptoms R39.9 Active Problem Back pain M54.9 Active 704473740 Problem Bone pain M89.8X9 Active 65317130 Problem Weight loss R63.4 Active 317887283 Assessment Fibromyalgia M79.7 Dec, Active 611340742 Problem Right upper quadrant abdominal pain R10.11 Active 836673910 Problem Depression, unspecified depression type F32.9 Active 17648838 Problem Chronic pain G89.29 Active 88424790 Problem Tobacco abuse Z72.0 Active 59013537 Problem Weight decrease R63.4 Active 084761449 Problem Other and unspecified hyperlipidemia 272.4 Active 70212796 Problem Chronic airway obstruction, not elsewhere classified 496 Active 16945793 Problem Hypokalemia E87.6 Active 048122006 Problem Chronic pain syndrome 338.4 Active 127758791 Problem Generalized anxiety disorder 300.02 Active 71686319 Problem Right foot pain M79.671 Active 58114067 Problem Calculus of kidney 592.0 Active 53293852 Problem Right low back pain, with sciatica presence unspecified M54.5 Active 068145569 Problem Abdominal pain, generalized 789.07 Active 705857205 Problem Pain in right knee M25.561 Active 81823570 ALLERGIES Unknown Allergies SOCIAL HISTORY No smoking Hx information available PLAN OF CARE VITAL SIGNS Height 64 in 2016-01-04 Weight 118.0 lbs 2016-01-04 Heart Rate 86 bpm 2016-01-04 Respiratory Rate 22 2016-01-04 BMI 20.25 kg/m2 2016-01-04 Blood pressure systolic 140 mmHg 2016-01-04 Blood pressure diastolic 86 mmHg 2016-01-04 MEDICATIONS Medication Instructions Dosage Frequency Start Date End Date Duration Status Loratadine 10 MG Orally Once a day 1 tablet 24h 30 Active Zantac 150 MG Orally Twice a day 1-2 tablets as needed for heartburn 12h Active Ibuprofen 600 MG Orally Three times a day 1 tablet with food as needed 8h Active Chlordiazepoxide HCl 10 mg Orally 1 in AM and 1 in afternoon and 2 at hs 1 capsule 28 Active Percocet 10-325 MG Orally 4 times a day 1 tablet as needed 6h Jul, 07 days Active Potassium Chloride ER 20 MEQ Orally Once a day 1 capsule 24h Mar, 90 days Active Lyrica 50 MG Orally 3 times a day 1 capsule 8h Dec, 07 days Active Linzess 290 MCG Orally Once a day 1 capsule 24h 90 Active Cymbalta 30 MG Orally Once a day 1 capsule 24h Dec, Active Dicyclomine HCl 20 mg Orally 3 times a day 1 tablet 30 to 60 minutes before meals 8h 90 days Active RESULTS No Results PROCEDURES Procedure Date Ordered Related Diagnosis Body Site [facility] VISIT ESTABLISHED PATIENT Jan 04, 2016 Office Visit, Est Pt., Level 3 Jan 04, 2016 IMMUNIZATIONS No Known Immunizations
--- OUTSIDE RECORDS SUMMARY | 2016-09-25 06:33 | XMS REPORT ---
Author Author VALERIE ZAVALA Organization [employer] Address Unknown Phone Unavailable Care Team Providers Care Cupola Operator Name Role Phone VALERIE ZAVALA CP [...] Start Date End Date Status Dosage Percocet [facility] [address]-82 10-325 MG Orally every 6 hrs. (alternate between 2 tabs and 1 tab every 6 hours) August 13, 2015 Dec 14, 2015 1-2 tablets Results No Known Results Summary Purpose [employer]ClinicalWorks Submission
--- OUTSIDE RECORDS SUMMARY | 2016-09-25 06:33 | XMS REPORT ---
Author VALERIE Lama Organization [employer] Address Unknown Phone Unavailable Care Team Providers Care Enterprise Integration Architect Name Role Phone VALERIE ZAVALA CP Unavailable [...] Instructions Start Date End Date Status Dosage Acyclovir [facility] [address]-72 400 MG Orally Twice a day Jun 03, 2015 1 tablet Results No Known Results Summary Purpose [employer]ClinicalWorks Submission
--- OUTSIDE RECORDS SUMMARY | 2016-09-25 06:34 | XMS REPORT ---
Author Author VALERIE ZAVALA [facility] Address [address] [place] [address] Care Team Providers Care General Service Technician Name Role Phone VALERIE ZAVALA Unavailable PROBLEMS Type Condition ICD9-CM Code ENH91-FB Code Onset Dates Condition Status SNOMED Code Problem Bone pain M89.8X9 Active 39208720 Problem Chronic pain G89.29 Active 03315100 Problem Back pain M54.9 Active 292326048 Problem Insomnia, unspecified type G47.00 Active 719132315 Problem Hypokalemia E87.6 Active 938390679 Problem Weight loss R63.4 Active 084552224 Problem Weight decrease R63.4 Active 270813900 Problem Depression, unspecified depression type F32.9 Active 92399465 Problem Right upper quadrant abdominal pain R10.11 Active 034563544 Problem Tobacco abuse Z72.0 Active 62936931 Problem Chronic airway obstruction, not elsewhere classified 496 Active 62234319 Problem Calculus of kidney 592.0 Active 05764106 Problem Chronic pain syndrome 338.4 Active 675848026 Problem Other and unspecified hyperlipidemia 272.4 Active 17450111 Problem Right foot pain M79.671 Active 09859752 Problem Right low back pain, with sciatica presence unspecified M54.5 Active 065462531 Problem Abdominal pain, generalized 789.07 Active 055992828 Problem Pain in right knee M25.561 Active 59984266 Problem Generalized anxiety disorder 300.02 Active 00860265 Problem UTI symptoms R39.9 Active ALLERGIES Unknown Allergies SOCIAL HISTORY No smoking Hx information available PLAN OF CARE VITAL SIGNS MEDICATIONS Unknown Medications RESULTS No Results PROCEDURES No Known procedures IMMUNIZATIONS No Known Immunizations
--- OUTSIDE RECORDS SUMMARY | 2016-09-25 06:34 | XMS REPORT ---
Author Author VALERIE ZAVALA Organization [employer] Address Unknown Phone Unavailable Care Team Providers Care Assistant Center Manager Name Role Phone VALERIE ZAVALA CP [...] Instructions Start Date End Date Status Dosage Lyrica [facility] [address]-12 50 mg Orally Once a day Dec 14, 2015 2 capsules at bedtime Percocet [facility] [address]-45 10-325 MG Orally 4 times a day August 13, 2015 1 tablet as needed Results No Known Results Summary Purpose [employer]ClinicalWorks Submission
--- OUTSIDE RECORDS SUMMARY | 2016-09-25 06:34 | XMS REPORT ---
Author VALERIE Lama [facility] eClinicalWorks Address Unknown Phone Unavailable Care Team Providers Care Machine Carton Marker Name Role Phone VALERIE ZAVALA CP Unavailable [...] upper quadrant abdominal pain R10.11 Active Assessment Weight loss R63.4 Active Problem Tobacco abuse Z72.0 Active Assessment Bone pain M89.8X9 Active Assessment Insomnia, unspecified type G47.00 Active Problem Weight loss R63.4 Active Problem [...] Instructions Start Date End Date Status Dosage Loratadine [facility] 77387499389 10 MG Orally Once a day 1 tablet Linzess [facility] 70766207719 290 MCG Orally Once a day 1 capsule Ibuprofen [facility] [address]-71 600 MG Orally Three times a day 1 tablet with food as needed Dicyclomine HCl [facility] 65008527445 20 MG TAKE ONE TABLET BY MOUTH EVERY 6 HOURS 30 TO 60 MINUTES BEFORE MEALS Chlordiazepoxide HCl [facility] [address]-78 10 mg Orally 3 times a day - 1 in AM and 1 in afternoon and 2 at hs 1 capsule as needed Percocet [facility] [address]-45 10-325 MG Orally every 6 hrs August 13, 2015 2 tablets Zantac [facility] [address]-68 150 MG Orally Twice a day 1-2 tablets as needed for heartburn Procedures Procedure Coding System Code Date LAB NOT BILLED BY [facility] CPT-4 NOBLL December 01, 2015 RBC SED RATE, NONAUTOMATED CPT-4 72845 December 01, 2015 No Charge CPT-4 34067 December 01, 2015 [facility] VISIT ESTABLISHED PATIENT CPT-4 G0467 December 01, 2015 VENIPUNCT, ROUTINE* CPT-4 49593 December 01, 2015 Office Visit, Est Pt., Level 3 CPT-4 74183 December 01, 2015 Vital Signs Date/Time: December 01, 2015 Cardiac Monitoring Heart Rate 88 bpm Weight 119.2 lbs Height 64 in BMI 20.46 Index Blood Pressure Diastolic 82 mmHg Blood Pressure Systolic 130 mmHg Results No Known Results Summary Purpose eClinicalWorks Submission
--- OUTSIDE RECORDS SUMMARY | 2016-09-25 06:34 | XMS REPORT ---
Author Author VALERIE ZAVALA Organization [employer] Address Unknown Phone Unavailable Care Team Providers Care Front Counter Clerk Name Role Phone VALERIE ZAVALA CP Unavailable Allergies No Known Allergies Problems Problem Type Condition Code Onset Dates Condition Status Problem Pain in right knee M25.561 Active Problem Bone pain M89.8X9 Active Problem UTI symptoms R39.9 Active Problem Right upper quadrant abdominal pain R10.11 Active Assessment Pain in right knee M25.561 Active Problem Tobacco abuse Z72.0 Active Problem Weight loss R63.4 Active Problem Chronic pain G89.29 Active Problem Back pain M54.9 Active Problem Weight decrease R63.4 Active Problem Depression, unspecified depression type F32.9 Active Problem Chronic pain syndrome 338.4 Active Problem Other and unspecified hyperlipidemia 272.4 Active Assessment Back pain M54.9 Active Problem Hypokalemia E87.6 Active Problem Abdominal [...]
== END 2016-08-21 20:28 | disposition home or self-care (01) ==
LOC: EDUNIT# 17:55 → ER 17:56
DX: N30.91 Cystitis, unspecified with hematuria (principal); I10 Essential (primary) hypertension; J44.9 Chronic obstructive pulmonary disease, unspecified; F17.210 Nicotine dependence, cigarettes, uncomplicated; Z79.899 Other long term (current) drug therapy
CPT/HCPCS: 36415; 74000; 74176; 80053; 80306; 80320; 81000; 82150; 83605; 83690; 85025; 87040; 87077; 87088; 87186; 96361; 96365; 96375

== ENCOUNTER 2016-09-18 11:42 | Emergency (ER) | payer MEDICARE, MEDICAID ==
[~2016-09-18] VITALS: Ht 170.2 cm; Wt 59.0 kg
[~2016-09-18 11:42] MED LIST changes: +LACT1CAP8 PO; +LEVO750T9 PO; +METH500T PO; +ONDA8TAB9 PO
[2016-09-18] MEDS ORDERED: fentaNYL INJECTION 100 MCG/2 ML AMP IVP STA (12:26)
--- NOTE | 2016-09-18 12:26 | ED GI ---
General Chief Complaint: Abdominal/GI Problems Stated Complaint: ABD PAIN Nursing Triage Note: c/o abd pain since . Diarrhea reported. Sepsis Screen: No Definite Risk Source of Information: Patient, Family Exam Limitations: No Limitations History of Present Illness Time Seen By Provider: 12:24 Initial Comments Patient presents with 3-4 day history of intermittent right lower quadrant and right upper quadrant pain that radiates upwards and towards her right flank. The pain is aching and worse with food but better with her home opiates and Flexeril. She is also accompanied with nausea and had some vomiting 3 or 4 days ago and none since. She's had no documented fever but does feel some warmth in her face and chills. She has no shortness of breath or chest pain. No cough, no rash. She did have some intermittent bouts of diarrhea for the past few days as well. She states she was worked up for her gallbladder or 4 years ago and found that it was borderline but did not need to come out at that time. She has had an appendectomy as well as emergency and hysterectomy in the past. Allergies and Home Medications Allergies Coded Allergies: Sulfa (Sulfonamide Antibiotics) (Verified Allergy, Unknown, 05/29/16) acetaminophen (Verified Allergy, Unknown, 05/29/16) adhesive (Verified Allergy, Unknown, 05/29/16) fentanyl adhesive hydrocodone (Verified Allergy, Unknown, 05/29/16) meperidine (Verified Allergy, Unknown, HALLUCINATIONS, 05/29/16) pregabalin (Verified Allergy, Unknown, 07/10/16) Home Medications Cefdinir 300 Mg Capsule, 300 MG PO BID, #20 Prescribed by: BINU LAMBERT on 07/08/16 1739 Cefdinir 300 Mg Capsule, 300 MG PO BID, #30 Prescribed by: LORETO TIPTON on 08/21/162003 Chlordiazepoxide HCl 10 Mg Capsule, 10 MG PO 0800,1200, (Reported) Chlordiazepoxide HCl 10 Mg Capsule, 20 MG PO HS, (Reported) TAKES 2 (10MG) CAPSULES Ciprofloxacin HCl 500 Mg Tablet, 500 MG PO BID, #10 Ref 0 Prescribed by: ANDREW KANG on 06/25/16 1429 Ciprofloxacin HCl 500 Mg Tablet, 500 MG PO BID, #20 Prescribed by: BINU LAMBERT on 07/08/16 1739 Hyoscyamine Sulfate 0.125 Mg Tablet, 0.125 MG PO QIDACHS for 14 Days, #60 Ref 0 Prescribed by: THANH MAO on 09/18/16 1446 Lactobacillus Acidophilus 1 Each Capsule, 2 EACH PO QID, #80 Prescribed by: LORETO TIPTON on 08/21/162003 Levofloxacin 750 Mg Tablet, 750 MG PO DAILY, #10 Prescribed by: LORETO TIPTON on 08/21/162003 Loratadine 10 Mg Capsule, 10 MG PO DAILY, (Reported) Melatonin/Pyridoxine 1 Each Tablet, 3 MG PO HS PRN for SLEEP, (Reported) Methocarbamol 500 Mg Tablet, 500 MG PO QID, #20 Prescribed by: LORETO TIPTON on 08/21/162003 Nitrofurantoin Monohyd/M-Cryst 100 Mg Capsule, 100 MG PO BID, #14 Ref 0 Prescribed by: RAISSA FUENTES on 06/03/16 1146 Ondansetron 8 Mg Tab.rapdis, 8 MG PO Q4H, #14 Prescribed by: LORETO TIPTON on 08/21/162003 Oxycodone HCl/Acetaminophen 1 Each Tablet, 1 TAB PO 0800,1400, (Reported) Oxycodone HCl/Acetaminophen 1 Each Tablet, 2 TAB PO HS, (Reported) Phenazopyridine HCl 100 Mg Tablet, 100 MG PO Q8H, #6 Ref 0 Prescribed by: ANDREW KANG on 06/25/16 1430 Phenazopyridine HCl 200 Mg Tablet, 1 TAB PO TID PRN for PAIN, #10 Prescribed by: BINU LAMBERT on 07/08/16 1739 Phenazopyridine HCl 200 Mg Tablet, 1 TAB PO TID, #15 Prescribed by: LORETO TIPTON on 08/21/162003 Prednisone 10 Mg Tab, 0 PO UD, #21 Ref 0 Take 6 tabs (60mg) daily, decrease by 1 tab (10mg) daily. Prescribed by: RAISSA FUENTES on 06/03/16 1146 Prednisone 20 Mg Tab, 40 MG PO DAILY for 5 Days, #10 Ref 0 Prescribed by: THANH MAO on 09/18/16 1714 Ranitidine HCl 150 Mg Tablet, 150-300 MG PO BID PRN for INDIGESTION, (Reported) Trazodone HCl 50 Mg Tablet, 100 MG PO HS, (Reported) TAKES 2 (50MG) TABLETS Review of Systems Constitutional: No chills, No diaphoresis EENTM: No Eye Pain, No Ear Pain Respiratory: Denies Cough, Denies Shortness of Air Cardiovascular: Denies Chest Pain, Denies Edema Gastrointestinal: See HPI, Denies Abdomen Distended, Abdominal Pain, Diarrhea, Nausea Genitourinary: Denies Burning, Denies Discharge Musculoskeletal: No back pain, No joint pain Skin: No pruritus, No rash Psychiatric/Neurological: Denies Anxiety, Denies Depressed Past Bdunril-Iucovn-Kgvkch Hx Patient Social History Alcohol Use: Denies Use Recreational Drug Use: No Smoking Status: Current Everyday Smoker Type Used: Cigarettes (1/2 ppd) 2nd Hand Smoke Exposure: No Recent Foreign Travel: No Contact w/Someone Who Travel: No Recent Infectious Disease Expo: No Recent Hopitalizations: Yes (Emphysema, UTI admit 05/2016) Immunizations Up To Date Tetanus Booster (TDap): Less than 5yrs Date of Pneumonia Vaccine: May 23, 2016 Date of Influenza Vaccine: May 23, 2016 Seasonal Allergies Seasonal Allergies: Yes Surgeries HX Surgeries: Yes Surgeries: Abdominal, Adenoidectomy, Section, Hysterectomy, Joint Replacement, Orthopedic, Tonsillectomy Respiratory Hx Respiratory Disorders: Yes Respiratory Disorders: COPD Cardiovascular Hx Cardiac Disorders: Yes Cardiac Disorders: Hypertension Neurological Hx Neurological Disorders: Yes Neurological Disorders: Headaches /Migraines 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 System Hx 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 Disorders: No Sexually Transmitted Disease: No HIV/AIDS: No Genitourinary Hx Genitourinary Disorders: Yes Genitourinary Disorders: Kidney Stones, UTI-Chronic Gastrointestinal Hx Gastrointestinal Disorders: Yes Gastrointestinal Disorders: Gastroesophageal Reflux, Chronic Constipation, Irritable Bowel Musculoskeletal Hx Musculoskeletal Disorders: Yes ("KNEE AND BACK PROBLEMS" "BULGING DISCS" ) Musculoskeletal Disorders: Degenerate Disk Disease, Osteoporosis, Arthritis, Fibromyalgia, Chronic Back Pain Endocrine Hx Endocrine Disorders: No HEENT HX ENT Disorders: Yes (DENTURES, READING GLASSES) Loss of Vision: Bilateral Cancer Hx Cancer: No Psychosocial Hx Psychiatric Problems: Yes (Pt states she had Bulemia years ago and lowest weight was 94 lbs ) Behavioral Health Disorders: Anxiety, PTSD, Depression Integumentary HX Skin/Integumentary Disorder: No Blood Transfusions Hx Blood Disorders: Yes (HX OF ANEMIA) Adverse Reaction to a Blood Tr: No (HAS FLUSHING BUT NO REACTION) Family Medical History Family Medial History: Abdominal aortic aneurysm Alzheimer's disease 19 MOTHER Cardiovascular disease 19 FATHER ( AT 46 FROM HEART ATTACK) G8 SISTER Hypercholesterolemia 19 FATHER Hypertension 19 FATHER 19 MOTHER Myocardial infarction 19 FATHER Thyroid disease 19 MOTHER G8 SISTER Physical Exam Vital Signs VS - Last 72 Hours, by Label 09/18/16 09/18/16 09/18/16 12:05 12:41 15:10 Temp 98.5 98.5 98.7 Pulse 76 72 Resp 16 16 B/P (MAP) 134/63 Pulse Ox 98 98 O2 Delivery Room Air Capillary Refill : Less Than 3 Seconds General Appearance: WD/WN, mild distress HEENT: PERRL/EOMI, normal ENT inspection, pharynx normal Neck: full range of motion, normal inspection Respiratory: chest non-tender, lungs clear, normal breath sounds, no respiratory distress Cardiovascular: normal peripheral pulses, regular rate, rhythm, no edema Peripheral Pulses: 3+ Radial Pulses (R), 3+ Radial Pulses (L) Gastrointestinal: normal bowel sounds, soft, no organomegaly, no pulsatile mass , tenderness (right side) Extremities: normal inspection, no pedal edema, no calf tenderness Back: normal inspection, no vertebral tenderness, CVA tenderness (R) 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: alert, oriented x 3 Skin: normal color, warm/dry Progress/Results/Core Measures Results/Orders Lab Results Laboratory Tests Test 09/18/16 12:00 09/18/16 13:00 Range/Units Urine Color YELLOW Urine Clarity CLEAR Urine pH 5 5-9 Urine Specific [employer] 1.020 1.016-1.022 Urine Protein 2+ H NEGATIVE Urine Glucose (UA) NEGATIVE NEGATIVE Urine Ketones 3+ H NEGATIVE Urine Nitrite NEGATIVE NEGATIVE Urine Bilirubin NEGATIVE NEGATIVE Urine Urobilinogen NORMAL NORMAL MG/DL Urine Leukocyte Esterase 1+ H NEGATIVE Urine RBC (Auto) 2+ H NEGATIVE Urine RBC NONE /HPF Urine WBC RARE /HPF Urine Squamous Epithelial Cells 0-2 /HPF Urine Crystals NONE /LPF Urine Bacteria NEGATIVE /HPF Urine Casts PRESENT /LPF Urine Hyaline Casts 2-5 H /LPF Urine Mucus NEGATIVE /LPF Urine Culture Indicated NO White Blood Count 6.8 4.3-11.0 10^3/uL Red Blood Count 4.86 4.35-5.85 10^6/uL Hemoglobin 14.8 11.5-16.0 G/DL Hematocrit 46 35-52 % Mean Corpuscular Volume 96 80-99 FL Mean Corpuscular Hemoglobin 31 25-34 PG Mean Corpuscular Hemoglobin Concent 32 32-36 G/DL Red Cell Distribution Width 14.2 10.0-14.5 % Platelet Count 315 130-400 10^3/uL Mean Platelet Volume 10.2 7.4-10.4 FL Neutrophils (%) (Auto) 54 42-75 % Lymphocytes (%) (Auto) 31 12-44 % Monocytes (%) (Auto) 12 0-12 % Eosinophils (%) (Auto) 1 0-10 % Basophils (%) (Auto) 1 0-10 % Neutrophils # (Auto) 3.7 1.8-7.8 X 10^3 Lymphocytes # (Auto) 2.1 1.0-4.0 X 10^3 Monocytes # (Auto) 0.8 0.0-1.0 X 10^3 Eosinophils # (Auto) 0.1 0.0-0.3 10^3/uL Basophils # (Auto) 0.1 0.0-0.1 10^3/uL Sodium Level 138 135-145 MMOL/L Potassium Level 3.0 L 3.6-5.0 MMOL/L Chloride Level 103 98-107 MMOL/L Carbon Dioxide Level 20 L 21-32 MMOL/L Anion Gap 15 H 5-14 MMOL/L Blood Urea Nitrogen 10 7-18 MG/DL Creatinine 0.94 0.60-1.30 MG/DL Estimat Glomerular Filtration Rate 60 BUN/Creatinine Ratio 11 Glucose Level 108 H 70-105 MG/DL Calcium Level 10.2 H 8.5-10.1 MG/DL Total Bilirubin 0.4 0.1-1.0 MG/DL Aspartate Amino Transf (AST/SGOT) 18 5-34 U/L Alanine Aminotransferase (ALT/SGPT) 11 0-55 U/L Alkaline Phosphatase 68 40-136 U/L Total Protein 8.4 H 6.4-8.2 G/DL Albumin 4.8 H 3.2-4.5 G/DL Amylase Level 60 25-125 U/L My Orders Orders - THANH MAO Amylase (09/18/16 12:26) Cbc With Automated Diff (09/18/16 12:26) Comprehensive Metabolic Panel (09/18/16 12:26) Ct Abdomen/Pelvis W Wo (09/18/16 12:26) Saline Lock/Iv-Start (09/18/16 12:26) Fentanyl Injection (Sublimaze Injection (09/18/16 12:26) Ondansetron Injection (Zofran Injectio (09/18/16 12:30) Ns Iv 1000 Ml (Sodium Chloride 0.9%) (09/18/16 12:30) Iohexol Injection (Omnipaque 350 Mg/Ml 1 (09/18/16 13:45) Ns (Ivpb) (Sodium Chloride 0.9% Ivpb Bag (09/18/16 13:45) Medications Given in ED Current Medications Medications Dose Ordered Sig/Lisa Route Start Time Stop Time Status Last Admin Dose Admin Iohexol 100 ml ONCE ONCE IV 09/18/16 13:45 09/18/16 13:46 DC 09/18/16 13:39 90 ML Ondansetron HCl 4 mg ONCE ONCE IVP 09/18/16 12:30 09/18/16 12:31 DC 09/18/16 12:42 4 MG Sodium Chloride 100 ml ONCE ONCE IV 09/18/16 13:45 09/18/16 13:46 DC 09/18/16 13:39 100 ML Vital Signs/I&O Vital Sign - Last 12Hours 09/18/16 09/18/16 09/18/16 12:05 12:41 15:10 Temp 98.5 98.5 98.7 Pulse 76 72 Resp 16 16 B/P (MAP) 134/63 Pulse Ox 98 98 O2 Delivery Room Air Blood Pressure Mean: 86 Progress Note : Progress Note Patient right sided abdominal flank pain may be consistent with gallbladder versus urinary stone. She's had both worked up in the past. CT did not show a stone and had a normal looking gallbladder. The appendix was not well visualized. Her white count was normal and her urinalysis had a little red blood cells in it but no evidence of infection. She was allowed to go home and follow up with her primary care physician. Diagnostic Imaging Diagonstic Imaging: CT Plain Films/CT/US/NM/MRI: abdomen, pelvis (W/WO) Comments VIA [facility]. [place], [place] NAME: MANJINDER HUMPHRIES [facility] REC#: [id number] PT STATUS: REG ER : 1950 PHYSICIAN: THANH MAO MD ADMIT DATE: 09/18/16/ER Draft Date of Exam:09/18/16 CT ABDOMEN/PELVIS W WO PROCEDURE: CT abdomen and pelvis with and without contrast. TECHNIQUE: Precontrast acquisitions were acquired through the abdomen and pelvis. Multiple contiguous axial images were obtained through the abdomen and pelvis after the administration of intravenous contrast. INDICATION: Hematuria, right-sided pain. FINDINGS: The previous CT abdomen/pelvis exam of 08/21/16 failed to show any evidence for nephrolithiasis or urolithiasis. There is no sign of obstruction of either collecting system either. On this study, there are a few small vascular calcifications again evident about both renal pelves, but there is no sign of an obstructive calculus. Both kidneys do show excretion of the contrast. The small cyst along the lateral aspect of the right kidney seen previously is again evident and no different. The urinary bladder is grossly unremarkable. The appendix was not well visualized, but there are no indirect signs of acute appendicitis. There is no pelvic mass or free fluid collection noted. The urinary bladder is grossly unremarkable. The uterus is surgically absent. The liver, spleen, pancreas, adrenals, gallbladder, aorta and inferior vena cava are unremarkable for an acute abnormality. The common bile duct near its entry into the head of the pancreas is somewhat prominent measuring 6-7 mm. There is no sign of choledocholithiasis or for an obstructive mass, however. The biliary tree does not seem to be abnormally dilated either. The stomach is not well distended and consequently difficult to assess. The lung bases are clear. The bone window shows no evidence for a fracture or for a destructive lesion. There is severe degenerative disc and bony disease at L5-S1, but there does not appear to be any significant central stenosis at this level. There may be mild trefoil stenosis at L4-5, however. IMPRESSION: 1. There is no evidence for an acute abnormality of the abdomen or pelvis. In particular, there is no sign of obstruction of either collecting system by a calculus. 2. The appendix is not well visualized, but there are no indirect signs of acute appendicitis. Dictated on workstation # [id number] Dict: 09/18/16 1405 Trans: 09/18/16 1418 [id number] Interpreted by: REY ALEGRE MD Electronically signed by: Reviewed: Reviewed by Me Departure Impression Impression: Primary Impression: Abdominal wall pain Disposition: 01 HOME, SELF-CARE Condition: Stable Departure-Patient Inst. Decision time for Depature: 14:42 Referrals: RAISSA FUENTES MD (PCP/Family) Primary Care Physician Patient Instructions: Acute Abdomen (Belly Pain), Adult (DC) Add. Discharge Instructions: Your blood work was unremarkable. The CAT scan did not show any stones in the ureter system and had a normal gallbladder and bowels, liver, pancreas, kidneys. Since her pain was relieved by Flexeril as reasonable to think that this is more of a musculoskeletal problem to be worked up outpatient by her primary care physician. If you have new or worsening symptoms he should return to the ER or your primary care physician as appropriate. Make sure you're using MiraLAX to stay regular while you're on opiates. You had some red blood cells in your urine and this should be followed up outpatient by her primary care physician. Your pain and nausea on eating could still be consistent with gallbladder disease and should be further worked up outpatient by her primary care physician. Continue the Bentyl All discharge instructions reviewed with patient and/or family. Voiced understanding. Scripts Prednisone (Prednisone) 20 Mg Tab 40 MG PO DAILY for 5 Days, #10 TAB 0 Refills Prov: THANH MAO 09/18/16 Hyoscyamine Sulfate (Levsin) 0.125 Mg Tablet 0.125 MG PO QIDACHS for 14 Days, #60 TAB 0 Refills Prov: THANH MAO 09/18/16 Copy Copies To 1: KARO YATES DO Copies To 2: ARISSA FUENTES MD, TITUS J September 18, 2016 12:26
[2016-09-18 12:27] LABS: BILIRUBIN,URINE NEGATIVE (NEGATIVE); KETONES,URINE 3+ (NEGATIVE); LEUKOCYTE ESTERASE ,URINE 1+ (NEGATIVE); NITRITE,URINE NEGATIVE (NEGATIVE); PH,URINE 5 (5-9); PROTEIN,URINE 2+ (NEGATIVE); UROBILINOGEN,URINE NORMAL (NORMAL)
[2016-09-18] MEDS ORDERED: ONDANSETRON 4 MG/2 ML (SDV) Z0FRAN IVP ONE (12:30)
[2016-09-18] MEDS ORDERED: NS IV 1000 ML 1,000 ML IV SCH (12:30)
[2016-09-18 12:34] LABS: SQUAMOUS EPITHELIAL CELL,UR 0-2 /HPF; WBC,URINE RARE /HPF
[2016-09-18 13:13] LABS: BASOPHILS # (AUTO) 0.1 10^3/uL (0.0-0.1); BASOPHILS % (AUTO) 1 % (0-10); EOSINOPHILS # (AUTO) 0.1 10^3/uL (0.0-0.3); EOSINOPHILS % (AUTO) 1 % (0-10); LYMPHOCYTES # (AUTO) 2.1 X 10^3 (1.0-4.0); LYMPHOCYTES % (AUTO) 31 % (12-44); MEAN CORPUSCULAR HEMOGLOBIN 31 PG (25-34); MEAN CORPUSCULAR HGB CONC 32 G/DL (32-36); MEAN CORPUSCULAR VOLUME 96 FL (80-99); MEAN PLATELET VOLUME 10.2 FL (7.4-10.4); MONOCYTES # (AUTO) 0.8 X 10^3 (0.0-1.0); MONOCYTES % (AUTO) 12 % (0-12); NEUTROPHILS # (AUTO) 3.7 X 10^3 (1.8-7.8); NEUTROPHILS % (AUTO) 54 % (42-75); PLATELET COUNT 315 10^3/uL (130-400); RED BLOOD COUNT 4.86 10^6/uL (4.35-5.85); RED CELL DISTRIBUTION WIDTH 14.2 % (10.0-14.5); WHITE BLOOD COUNT 6.8 10^3/uL (4.3-11.0)
[2016-09-18 13:32] LABS: ALBUMIN 4.8 G/DL (3.2-4.5); BILIRUBIN,TOTAL 0.4 MG/DL (0.1-1.0); CALCIUM 10.2 MG/DL (8.5-10.1); CREATININE SERUM 0.94 MG/DL (0.60-1.30); TOTAL PROTEIN 8.4 G/DL (6.4-8.2)
[2016-09-18] MEDS ORDERED: NS 100 ML (IVPB) BAG IV ONE (13:45)
[2016-09-18] MEDS ORDERED: IOHEXOL 350 MG/ML 100 ML (OMNIPAQUE 350) VIAL IV ONE (13:45)
--- NOTE | 2016-09-18 14:18 | Diagnostic Imaging Report ---
PROCEDURE: CT abdomen and pelvis with and without contrast. TECHNIQUE: Precontrast acquisitions were acquired through the abdomen and pelvis. Multiple contiguous axial images were obtained through the abdomen and pelvis after the administration of intravenous contrast. INDICATION: Hematuria, right-sided pain. FINDINGS: The previous CT abdomen/pelvis exam of 08/21/16 failed to show any evidence for nephrolithiasis or urolithiasis. There is no sign of obstruction of either collecting system either. On this study, there are a few small vascular calcifications again evident about both renal pelves, but there is no sign of an obstructive calculus. Both kidneys do show excretion of the contrast. The small cyst along the lateral aspect of the right kidney seen previously is again evident and no different. The urinary bladder is grossly unremarkable. The appendix was not well visualized, but there are no indirect signs of acute appendicitis. There is no pelvic mass or free fluid collection noted. The urinary bladder is grossly unremarkable. The uterus is surgically absent. The liver, spleen, pancreas, adrenals, gallbladder, aorta and inferior vena cava are unremarkable for an acute abnormality. The common bile duct near its entry into the head of the pancreas is somewhat prominent measuring 6-7 mm. There is no sign of choledocholithiasis or for an obstructive mass, however. The biliary tree does not seem to be abnormally dilated either. The stomach is not well distended and consequently difficult to assess. The lung bases are clear. The bone window shows no evidence for a fracture or for a destructive lesion. There is severe degenerative disc and bony disease at L5-S1, but there does not appear to be any significant central stenosis at this level. There may be mild trefoil stenosis at L4-5, however. IMPRESSION: 1. There is no evidence for an acute abnormality of the abdomen or pelvis. In particular, there is no sign of obstruction of either collecting system by a calculus. 2. The appendix is not well visualized, but there are no indirect signs of acute appendicitis. Dictated by: Dictated on workstation # [id number]
[2016-09-18] MEDS ORDERED: HYOS0.1281 PO (14:46)
[2016-09-18 15:10] VITALS: BP 134/70
[2016-09-18] MEDS ORDERED: PRD20T PO (17:14)
== END 2016-09-18 15:05 | disposition home or self-care (01) ==
LOC: EDUNIT# 11:42 → ER 11:44
DX: R10.31 Right lower quadrant pain (principal); R11.2 Nausea with vomiting, unspecified; J44.9 Chronic obstructive pulmonary disease, unspecified; I10 Essential (primary) hypertension; F17.210 Nicotine dependence, cigarettes, uncomplicated
CPT/HCPCS: 36415; 74178; 80053; 81000; 82150; 85025; 96361; 96374; 96375

== ENCOUNTER → 2017-02-08 | Outpatient (CLI) | payer MEDICARE, MEDICAID ==
[~2017-02-08] MED LIST changes: +AZIT250T12 PO; -AZIT250T5 PO; +HYOS0.1281 PO
[2017-02-08 14:39] LABS: BASOPHILS # (AUTO) 0.1 10^3/uL (0.0-0.1); BASOPHILS % (AUTO) 1 % (0-10); EOSINOPHILS # (AUTO) 0.1 10^3/uL (0.0-0.3); EOSINOPHILS % (AUTO) 2 % (0-10); LYMPHOCYTES # (AUTO) 1.9 X 10^3 (1.0-4.0); LYMPHOCYTES % (AUTO) 28 % (12-44); MEAN CORPUSCULAR HEMOGLOBIN 33 PG (25-34); MEAN CORPUSCULAR HGB CONC 32 G/DL (32-36); MEAN CORPUSCULAR VOLUME 101 FL (80-99); MEAN PLATELET VOLUME 9.4 FL (7.4-10.4); MONOCYTES # (AUTO) 0.7 X 10^3 (0.0-1.0); MONOCYTES % (AUTO) 11 % (0-12); NEUTROPHILS # (AUTO) 3.8 X 10^3 (1.8-7.8); NEUTROPHILS % (AUTO) 58 % (42-75); PLATELET COUNT 245 10^3/uL (130-400); RED BLOOD COUNT 4.04 10^6/uL (4.35-5.85); RED CELL DISTRIBUTION WIDTH 13.5 % (10.0-14.5); WHITE BLOOD COUNT 6.6 10^3/uL (4.3-11.0)
[2017-02-08 14:57] LABS: ALANINE AMINOTRANSFERASE 9 U/L (0-55); ALBUMIN 4.2 GM/DL (3.2-4.5); ANION GAP 10 MMOL/L (5-14); ASPARTATE AMINO TRANSFERASE 16 U/L (5-34); BILIRUBIN,TOTAL 0.2 MG/DL (0.1-1.0); BLOOD UREA NITROGEN 9 MG/DL (7-18); BUN/CREATININE RATIO 11; CARBON DIOXIDE 22 MMOL/L (21-32); CHLORIDE 104 MMOL/L (98-107); CREATININE SERUM 0.83 MG/DL (0.60-1.30); GFR ESTIMATED > 60; GLUCOSE 107 MG/DL (70-105); POTASSIUM 3.9 MMOL/L (3.6-5.0); SODIUM 136 MMOL/L (135-145); TOTAL PROTEIN 7.4 GM/DL (6.4-8.2)
== END ==
LOC: LAB 14:15
PROVIDERS: ATTEND Nurse Practitioner Family
DX: R10.31 Right lower quadrant pain (principal)
CPT/HCPCS: 36415; 80053; 85025

== ENCOUNTER → 2017-05-16 | Outpatient (CLI) | payer MEDICARE, MEDICAID ==
--- NOTE | 2017-05-16 12:25 | Diagnostic Imaging Report ---
PROCEDURE: CT abdomen and pelvis without contrast. TECHNIQUE: Multiple contiguous axial images were obtained through the abdomen and pelvis without the use of intravenous contrast. INDICATION: Abdominal pain with nausea and vomiting. Right lower quadrant abdominal pain. COMPARISON: 09/18/2016 FINDINGS: Included portions of the lung bases show partially visualized subpleural 3 mm micronodule within the included portions of the left lower lobe (image 1, series 2). CT abdomen: Normal appendix cannot be adequately identified, but is reportedly surgically absent. Small bowel loops are nondistended. Nonobstructive renal calculus is noted on the right and may be vascular in nature. Although the ureters cannot be followed in their entirety, no calculi are seen along the expected course of the ureters. Additionally, there is no hydroureteronephrosis or other evidence of obstruction. No focal renal masses are identified on this noncontrast exam. The spleen, pancreas, adrenal glands, and liver have an unremarkable noncontrast CT appearance. There is no loculated fluid collection, free fluid, nor free air within the abdomen. No abnormal mesenteric or retroperitoneal adenopathy is seen. There is mild to moderate calcified aortic and arterial atherosclerosis. Bony structures show no acute abnormalities. CT pelvis: Urinary bladder is unopacified. No calculi are seen within the urinary bladder. There is no loculated fluid collection, free fluid, nor free air within the pelvis. No abnormal lymph nodes are identified. Bony structures show no acute abnormalities. IMPRESSION: 1. Single nonobstructive right renal calculus. 2. No ureteral calculi, hydroureteronephrosis, or other evidence of obstruction. 3. Partially visualized micronodule within the included portions of the left lower lobe. Given that the micronodule is only partially visualized on this exam, may want to consider dedicated CT chest for full characterization. Dictated by: Dictated on workstation # [id number]
== END ==
LOC: RAD 11:28
PROVIDERS: ATTEND Nurse Practitioner Community Health
DX: N20.0 Calculus of kidney (principal); R91.8 Other nonspecific abnormal finding of lung field
CPT/HCPCS: 74176

== ENCOUNTER → 2017-06-01 | Outpatient (CLI) | payer MEDICARE, MEDICAID ==
--- NOTE | 2017-06-01 15:44 | Diagnostic Imaging Report ---
PROCEDURE: CT urinary tract, rule out kidney stone. TECHNIQUE: Multiple contiguous axial images were obtained through the abdomen and pelvis without the use of intravenous contrast. INDICATION: Right-sided abdominal pain and history of kidney stones. COMPARISON: Comparison is made with prior CT from 05/16/2017. FINDINGS: The visualized lung bases are clear. The liver is unremarkable. Gallbladder is unremarkable. The pancreas and spleen are unremarkable. No adrenal mass is identified. The left kidney is unremarkable. Calcific densities in the right kidney are again noted, indeterminate between nonobstructing calculi or vascular calcifications. No hydronephrosis is seen. No ureteral calculi are detected. The bladder is unremarkable. The aorta is calcified but nonaneurysmal. The small and large bowel loops are normal caliber. There is no ascites. IMPRESSION: Stable noncontrast CT of the abdomen and pelvis when compared with examination from 05/16/2017. No acute feature is detected. Dictated by: Dictated on workstation # [id number]
== END ==
LOC: RAD 14:47
PROVIDERS: ATTEND Nurse Practitioner Community Health
DX: R31.9 Hematuria, unspecified (principal); Z87.442 Personal history of urinary calculi
CPT/HCPCS: 74176

== ENCOUNTER 2017-08-28 05:38 | Outpatient (CLI) | payer MEDICARE, MEDICAID ==
[~2017-08-28] VITALS: Ht 162.6 cm; Wt 56.7 kg
[~2017-08-28 05:38] MED LIST changes: -RANI150T15 PO; +RANI150T46 PO; +TRAZ-189 PO; -TRAZ-28 PO
[2017-08-28] MEDS ORDERED: CHLO10CA6 PO (09:30)
[2017-08-28] MEDS ORDERED: METO-352 PO (09:30)
[2017-08-28] MEDS ORDERED: RT-ALBUINH IH (09:30)
[2017-08-28] MEDS ORDERED: PANT40TA2 PO (09:30)
[2017-08-28] MEDS ORDERED: DICY20TA10 PO (09:30)
== END 2017-08-28 09:34 ==
LOC: PREOP 05:38
PROVIDERS: ATTEND Surgery
DX: Z01.818 Encounter for other preprocedural examination (principal); K21.9 Gastro-esophageal reflux disease without esophagitis; R63.4 Abnormal weight loss

== ENCOUNTER → 2017-09-21 | Outpatient (CLI) | payer MEDICARE, MEDICAID ==
[~2017-09-21] MED LIST changes: +DICL100G18 TP; +METO-352 PO; +NAPR250T6 PO; +PANT40TA2 PO; +RT-ALBUINH IH; -TRAZ-189 PO; +TRAZ-28 PO
--- NOTE | 2017-09-22 21:50 | Diagnostic Imaging Report ---
Digital mammogram bilateral screening with 3D tomosynthesis. This study was compared to the prior exam of 05/20/2010. At this time, there are no current complaints. The current study was also evaluated with a Computer Aided Detection (CAD) system. FINDINGS: The fibroglandular tissue in both retroareolar regions is dense. This does limit the sensitivity of this exam. When compared to the prior exam, there does not appear to have been any significant change. There is no primary or secondary sign of malignancy noted. IMPRESSION: 1. There is no evidence for malignancy. 2. The patient should have her annual bilateral screening mammogram on schedule in September of 2018. ACR BI-RADS Category 1: Negative. Result letter will be mailed to the patient. Note: At least 10% of breast cancer is not imaged by mammography. Dictated by: Dictated on workstation # [id number]
== END ==
LOC: RAD 13:41
PROVIDERS: ATTEND Nurse Practitioner Community Health
DX: Z12.31 Encounter for screening mammogram for malignant neoplasm of breast (principal)
CPT/HCPCS: 77067

== ENCOUNTER 2017-10-05 15:39 | Emergency (ER) | payer MEDICARE, MEDICAID ==
[~2017-10-05] VITALS: Ht 180.3 cm; Wt 58.1 kg
[~2017-10-05 15:39] MED LIST changes: -DICL100G18 TP; -NAPR250T6 PO
--- OUTSIDE RECORDS SUMMARY | 2017-10-05 15:46 | XMS REPORT ---
Author Author VALERIE ZAVALA Organization [facility] Address [address] [place] [address] Care Team Providers Care Dressmaker Or Tailor Name Role Phone VALERIE ZAVALA Unavailable PROBLEMS Type Condition ICD9-CM Code MDT47-EN Code Onset Dates Condition Status SNOMED Code Problem Weight loss R63.4 Active 320177423 Problem Pulmonary emphysema, unspecified emphysema type J43.9 Active 80657125 Problem Insomnia, unspecified type G47.00 Active 988373699 Problem Other emphysema J43.8 Active 59866176 Problem Right foot pain M79.671 Active 71152009 Problem Neuropathy G62.9 Active 428515457 Problem Hypokalemia E87.6 Active 420471766 Problem Generalized anxiety disorder F41.1 Active 21065774 Problem Gastroesophageal reflux disease without esophagitis K21.9 Active 556162695 Problem Essential hypertension I10 Active 27889552 Problem Anxiety F41.9 Active 63139345 Problem Post-traumatic stress disorder, chronic F43.12 Active 87581653 Problem UTI symptoms R39.9 Active 21645254 Problem Bone pain M89.8X9 Active 25898626 Problem Right low back pain, with sciatica presence unspecified M54.5 Active 094866166 Problem Pain in right knee M25.561 Active 07302822 Problem Depression, unspecified depression type F32.9 Active 83471883 Problem Weight decrease R63.4 Active 018473011 Problem Back pain M54.9 Active 791340598 Problem Tobacco abuse Z72.0 Active 36447189 Problem Chronic pain G89.29 Active 44133317 Problem Right upper quadrant abdominal pain R10.11 Active 616973396 ALLERGIES Unknown Allergies SOCIAL HISTORY No smoking Hx information available PLAN OF CARE VITAL SIGNS MEDICATIONS Unknown Medications RESULTS No Results PROCEDURES No Known procedures IMMUNIZATIONS No Known Immunizations
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
--- OUTSIDE RECORDS SUMMARY | 2017-10-05 15:47 | XMS REPORT ---
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 Name Role Phone VALERIE ZAVALA Unavailable PROBLEMS Type Condition ICD9-CM Code UTU18-GH Code Onset Dates Condition Status SNOMED Code Problem Generalized anxiety disorder F41.1 Active 64630679 Problem Hypokalemia E87.6 Active 766197516 Problem Pulmonary emphysema, unspecified emphysema type J43.9 Active 50568743 Problem Right low back pain, with sciatica presence unspecified M54.5 Active 472196003 Problem Post-traumatic stress disorder, chronic F43.12 Active 89994154 Problem Pain in right knee M25.561 Active 27355980 Problem Gastroesophageal reflux disease without esophagitis K21.9 Active 161783031 Problem Neuropathy G62.9 Active 582079950 Problem Essential hypertension I10 Active 15560933 Problem Generalized abdominal pain R10.84 Active 763971495 Problem Kidney stones N20.0 Active 28494486 Problem Back pain M54.9 Active 832558626 Problem Right foot pain M79.671 Active 99335142 Problem UTI symptoms R39.9 Active 39773787 Problem Other emphysema J43.8 Active 23478911 Problem Anxiety F41.9 Active 04779271 Problem Renal calculus, right N20.0 Active 96161158 Problem Panic attacks F41.0 Active 194418419 Problem Depression, unspecified depression type F32.9 Active 36933816 Problem Weight decrease R63.4 Active 822966398 Problem Chronic pain G89.29 Active 06406721 Problem Bone pain M89.8X9 Active 40162219 Problem Weight loss R63.4 Active 985032849 Problem Insomnia, unspecified type G47.00 Active 914412907 Problem Tobacco abuse Z72.0 Active 75840472 Problem Right upper quadrant abdominal pain R10.11 Active [id number] ALLERGIES No Information ENCOUNTERS Encounter Location Date Diagnosis [facility] [address] [address] September, [facility] [id number] [place] [address] 58065- 0925 Aug, [facility] [address] [address] 6643 Aug, [facility] [id number] [place] [address] 28440- 0212 Aug, [facility] [address] [address] 8667 Jul, [facility] [id number] [place] [address] 82938- 6491 Jul, Renal calculus, right N20.0 and Medicare welcome exam Z00.00 [facility] [address], [place] [address] Jul, Dysuria R30.0 and Renal calculus, right N20.0 [facility] [address] [address] 6120 Jul, Medicare welcome exam Z00.00 [facility] [id number] [place] [address] 03940- 2912 Jun, Gastroesophageal reflux disease without esophagitis K21.9 and Generalized abdominal pain R10.84 [facility] [address], [place] [address] 67[address] Jun, Medicare welcome exam Z00.00 [facility] [address], [place] [address] Jun, [facility] [id number] [place] [address] 13723- 1127 Jun, Medicare welcome exam Z00.00 and Encounter for screening mammogram for malignant neoplasm of breast Z12.31 [facility] [address] [place] [address] 63592- 6862 Jun, Chronic pain G89.29 [facility] [id number] [place] [address] 14772- 6820 May, [facility] [id number] [place] [address] 60551- 4205 May, Pelvic pain R10.2 [facility] [id number] [place] [address] 67104- 3103 May, Pelvic pain R10.2 [facility] [id number] [place] [address] 87338 -4013 May, Renal calculus, right N20.0 [facility] [id number] [place] [address] 71428- 4382 May, Hematuria, unspecified type R31.9 and Nephrolithiasis N20.0 [facility] [id number] [place] [address] 82191 -7291 May, Dysuria R30.0 and Nephrolithiasis N20.0 [facility] [id number] [place] [address] 89660- 4491 May, [facility] [id number] [place] [address] 27533 -6725 May, Abdominal pain R10.9 and Kidney stone N20.0 [facility] [id number] [place] [address] 72745- 9816 May, [facility] [id number] [place] [address] 94187- 7554 May, Chronic pain G89.29 and Panic attacks F41.0 [facility] [id number] [place] [address] 55255- 0022 May, Urinary tract infection without hematuria, site unspecified N39.0 [facility] [id number] [place] [address] 09572- 9930 26 Dec, 2017 Right lower quadrant abdominal pain R10.31 and Abnormal serum lipase level R74.8 [facility] [address], [place] [address]- 7326 Apr, Recurrent urinary tract infection N39.0 [facility] [id number] [place] [address] 72386- 9340 Apr, UTI symptoms R39.9 ; Recurrent urinary tract infection N39.0 and Pelvic pain R10.2 [facility] [id number] [place] [address] 31357- 0100 Apr, Chronic pain G89.29 and Panic attacks F41.0 [facility] [id number] [place] [address] 22808- 3771 Apr, Dysuria R30.0 [facility] [id number] [place] [address] 30806- 5184 Apr, [facility] [address] [place] [address] 96498- 9861 Apr, Dysuria R30.0 and Urinary tract infection without hematuria , site unspecified N39.0 [facility] [address] [place] [address] 52996- 0994 Mar, UTI symptoms R39.9 [facility] [address] [place] [address] 54487- 7820 Mar, [facility] [id number] [place] [address] 21504- 4186 Mar, Panic attacks F41.0 and Chronic pain G89.29 [facility] [address] [place] [address] 25996- 9652 Mar, [facility] [id number] [place] [address] 85902- 2704 09 Mar, 2017 Dysuria R30.0 [facility] [address] [place] [address] 50401- 7122 Mar, Dysuria R30.0 [facility] [id number] [place] [address] 73470- 1396 Feb, Chronic pain G89.29 ; Shortness of breath R06.02 ; Weight loss R63.4 ; Encounter for immunization Z23 ; Bone pain M89.8X9 ; Right anterior knee pain M25.561 and Cough R05 [facility] [address] 02038- 6474 Feb, Shortness of breath R06.02 [facility] [address] 23659- 6754 Feb, [facility] [address] 61723- 3251 Feb, Panic attacks F41.0 and Chronic pain G89.29 [facility] [address] 43986- 5757 Feb, [facility] [address] 93007- 8899 Feb, Panic attacks F41.0 ; Shortness of breath R06.02 and Encounter for immunization Z23 [facility] [address] 24004- 3869 Jan, [facility] [id number] [place] [address] 20592- 8357 Jan, Anxiety F41.9 and Chronic pain G89.29 [facility] [id number] [place] [address] 92247- 1083 Dec, Anxiety F41.9 and Chronic pain G89.29 [facility] [address] 24535- 3894 Nov, Chronic pain G89.29 [facility] [id number] [place] [address] 13711- 8037 Nov, Anxiety F41.9 [facility] [address] 56571- 7193 Nov, Chronic pain G89.29 ; Essential hypertension I10 and Other emphysema J43.8 [facility] [id number] [place] [address] 02505- 6702 Oct, Anxiety F41.9 [facility] [id number] [place] [address] 72871- 2037 Oct, [facility] [address] 18637- 4263 Oct, Chronic pain G89.29 [facility] [address] 88608- 4177 September, Recurrent UTI N39.0 ; Neuropathy G62.9 and Anxiety F41.9 [facility] [id number] [place] [address] 36430- 1838 September, [facility] [address] 30454- 0528 September, Chronic pain G89.29 [facility] [id number] [place] [address] 42802- 9264 September, [facility] [id number] [place] [address] 98230- 4150 Aug, Post-traumatic stress disorder, chronic F43.12 ; Chronic urinary tract infection N39.0 ; Gastroesophageal reflux disease without esophagitis K21.9 ; Chronic pain G89.29 ; Essential hypertension I10 and Tobacco abuse Z72.0 [facility] [id number] [place] [address] 69379 -1436 Aug, [facility] [id number] [place] [address] 52425- 4650 Aug, Chronic pain G89.29 [facility] [id number] [place] [address] 15683- 8848 Aug, Insomnia, unspecified type G47.00 [facility] [address] 65465- 4749 Aug, [facility] [address], [place] [address]- 8969 Jul, Chronic pain G89.29 [facility] [address] 9367 Jul, [facility] [address], [place] [address]- 1866 Jul, [facility] [address], [place] [address]- 2662 Jul, [facility] [address] [place] [address] 84694- 6246 Jul, Recurrent UTI (urinary tract infection) N39.0 [facility] [address], [place] [address]- 4043 Jul, [facility] [address], [place] [address]- 6328 Jun, Chronic pain G89.29 [facility] [address], [place] [address]- 1109 Jun, [facility] [address], [place] [address]- 5797 Jun, [facility] [address], [place] [address]- 8814 May, Chronic pain G89.29 [facility] [address], [place] [address]- 3695 May, Weight loss R63.4 and Shortness of breath R06.02 [facility] [address] [place] [address] 87078- 0553 May, Chronic pain G89.29 ; Weight loss R63.4 and Tobacco abuse Z72.0 [facility] [address], [place] [address]- 7744 May, [facility] [address], [place] [address]- 5611 May, Hypoxia R09.02 [facility] [id number] [place] [address] 85112- 5463 May, [facility] [id number] [place] [address] 67892- 9382 May, Pulmonary emphysema, unspecified emphysema type J43.9 [facility] [id number] [place] [address] 05718 -8089 May, [facility] [id number] [place] [address] 99850- 2223 May, [facility] [id number] [place] [address] 94996- 9236 May, [facility] [id number] [place] [address] 39034- 5881 May, Chronic pain G89.29 ; Encounter for immunization Z23 ; Right anterior knee pain M25.561 and Cough R05 [facility] [id number] [place] [address] 23155- 6573 Apr, Chronic pain G89.29 [facility] [id number] [place] [address] 04061- 4115 Apr, [facility] [id number] [place] [address] 66663- 4520 Apr, Generalized anxiety disorder F41.1 and Depression, unspecified depression type F32.9 [facility] [id number] [place] [address] 28729- 0031 Apr, Chronic pain G89.29 ; Hypokalemia E87.6 and Insomnia, unspecified type G47.00 [facility] [address] [place] [address] 80225- 3101 Apr, [facility] [id number] [place] [address] 21948- 0279 Apr, Chronic pain G89.29 [facility] [address] [facility] [id number] [place] 3271 Apr, [facility] [address] [facility] [id number] [place] 6706 Mar, [facility] [id number] [place] [address]- 0045 Mar, Insomnia, unspecified type G47.00 [facility] [address] [facility] [id number] [place] [address]- 5465 Mar, Chronic pain G89.29 [facility] [address] [facility] [id number] [place] [address], [place] [address]- 1471 Mar, [facility] [address] [facility] [id number] [place] [address]- 8681 Feb, [facility] [id number] [place] [address], [place] [address]- 2020 Feb, [facility] [address] [facility] [id number] [place] [address]- 5435 Feb, [facility] [id number] [place] [place] [address]- 9580 Feb, [facility] [id number] [place] [place] [address]- 0055 Feb, [facility] [id number] [place] [place] [address]- 3291 29 Jan, 2015 [facility] [address] [facility] [id number] [place] [address]- 3863 26 Jan, 2015 [facility] [place] [facility] [address] [facility] [id number] [place] [address]- 7248 20 Jan, 2015 [facility] [address] [facility] [id number] [place] [address]- 9765 13 Jan, 2015 [facility] [address] [facility] [id number] [place] [address]- 7312 Jan, [facility] [id number] [place] [address] 81429- 6447 Jan, Chronic pain G89.29 [facility] [id number] [place] [address] 77907- 8213 Jan, Chronic pain G89.29 and Fibromyalgia M79.7 [facility] [id number] [place] [address] 62426- 3574 Dec, Depression, unspecified depression type F32.9 and Generalized anxiety disorder 300.02 [facility] [id number] [place] [address] 14068- 0971 Dec, Dysthymia F34.1 ; Insomnia, unspecified type G47.00 and Chronic pain G89.29 [facility] [id number] [place] [address] 85889- 3517 Dec, Chronic pain G89.29 [facility] [id number] [place] [address] 36517- 1114 Dec, Insomnia, unspecified type G47.00 [facility] [id number] [place] [address] 70546- 6489 Dec, Fibromyalgia M79.7 and Chronic pain G89.29 [facility] [id number] [place] [address] 65019- 7947 Dec, [facility] [id number] [place] [address] 55697- 1968 Dec, [facility] [id number] [place] [address] 22518- 6531 Dec, [facility] [id number] [place] [address] 52525- 6684 Dec, [facility] [id number] [place] [address] 51385- 3496 Dec, Chronic pain G89.29 [facility] [id number] [place] [address] 99854- 4135 Dec, [facility] [address], [place] [address]- 2158 Dec, [facility] [address] [place] [address] 16234- 2774 Dec, [facility] [address] [place] [address] 37703- 8184 Dec, Chronic pain G89.29 and Dysthymia F34.1 [facility] [id number] [place] [address] 33177- 4181 Nov, [facility] [id number] [place] [address] 30975- 2162 Nov, Hypokalemia E87.6 and Chronic pain G89.29 [facility] [id number] [place] [address] 48398- 4350 Nov, Back pain M54.9 and Pain in right knee M25.561 [facility] [id number] [place] [address] 63714- 6165 Nov, [facility] [id number] [place] [address] 86547- 1055 Nov, Chronic pain G89.29 [facility] [id number] [place] [address] 80326- 7183 Nov, Chronic pain G89.29 ; Weight loss R63.4 ; Bone pain M89.8X9 and Insomnia, unspecified type G47.00 [facility] [address], [place] [address]- 4814 Nov, Chronic pain G89.29 [facility] [address] [place] [address] 28949- 3805 Nov, Chronic pain G89.29 [facility] [address], [place] [address]- 7959 Oct, Chronic pain G89.29 [facility] [address], [place] [address]- 4705 Oct, UTI symptoms R39.9 [facility] [id number] [place] [address] 23384- 1445 Oct, Chronic pain G89.29 [facility] [id number] [place] [address] 12009- 4357 Oct, Chronic pain G89.29 [facility] [id number] [place] [address] 59091- 3597 Oct, Chronic pain G89.29 [facility] [id number] [place] [address] 49966- 2992 Oct, Right upper quadrant abdominal pain R10.11 [facility] [id number] [place] [address] 26791- 1220 Oct, Chronic pain G89.29 [facility] [id number] [place] [address] 26765- 3674 Oct, [facility] [id number] [place] [address] 31999- 4116 September, Chronic pain G89.29 [facility] [id number] [place] [address] 64163- 1746 September, Dysuria R30.0 and Urinary tract infection without hematuria , site unspecified N39.0 [facility] [address] [place] [address] 83158- 7078 September, [facility] [id number] [place] [address] 29054- 1781 September, Dysuria R30.0 [facility] [id number] [place] [address] 37993- 6585 September, Chronic pain G89.29 [facility] [id number] [place] [address] 38820- 7631 September, Chronic pain G89.29 and Essential hypertension I10 [facility] [address], [place] [address]- 7912 September, [facility] [id number] [place] [address] 05258- 1691 September, [facility] [id number] [place] [address] 50151- 2011 September, [facility] [id number] [place] [address] 63763- 0301 Aug, UTI symptoms R39.9 [facility] [id number] [place] [address] 76649- 2416 Aug, Dysuria R30.0 [facility] [id number] [place] [address] 68912- 4553 Aug, [facility] [id number] [place] [address] 47314- 6783 Aug, [facility] [id number] [place] [address] 75944- 7898 Aug, [facility] [id number] [place] [address] 65573- 0486 Aug, Chronic pain G89.29 [facility] [id number] [place] [address] 98505- 1065 Aug, Dysthymia F34.1 [facility] [id number] [place] [address] 78272- 3692 Aug, Conjunctivitis, unspecified conjunctivitis type, unspecified laterality H10.9 [facility] [address] [place] [address] 46144- 1874 Jul, Chronic pain G89.29 ; Back pain M54.9 ; Tobacco abuse Z72.0 and Weight decrease R63.4 [facility] [address] [place] [address] 19501- 2698 Jul, [facility] [id number] [place] [address] [place] [address]- 6213 30 Jul, 2015 [facility] [address] [facility] [id number] [address]- 0416 24 Jul, 2015 Chronic pain G89.29 [facility] [address] [facility] [id number] [place] [address]- 2346 22 Jul, 2015 [facility] [address], [place] [address]- 7873 21 Jul, 2015 [facility] [address] [facility] [id number] [place] [address]- 2260 18 Jul, 2015 [facility] [id number] [place] [address] 17 Jul, 2015 [facility] [address] [address] 17 Jul, 2015 Chronic pain G89.29 [facility] [id number] [address] 16 Jul, 2015 Chronic pain G89.29 [facility] [id number] [place] [place] [address] 15 Jul, 2015 [facility] [address] [address] Jul, [facility] [address] [address] Jul, [facility] [address] [address] Jul, [facility] [id number] [address] Jun, [facility] [address] [address] Jun, Depression, unspecified depression type F32.9 [facility] [address] [address] Jun, Pain in right knee M25.561 [facility] [id number] [place] [address]- 4272 Jun, Chronic pain G89.29 ; Back pain M54.9 ; Bone pain M89.8X9 and Weight loss R63.4 [place] [facility] [id number] [place] [address]- 3791 Jun, [facility] [address] [address] May, [place] [facility] [id number] [place] [address]- 1553 May, UTI symptoms R39.9 ; Pain in right knee M25.561 ; Right low back pain, with sciatica presence unspecified M54.5 ; Right foot pain M79.671 ; Hypokalemia E87.6 and Screening, lipid Z13.220 [place] [address] [address] May, [facility] [id number] [place] [address]- 1377 May, [facility] [id number] [place] [address]- 1732 Mar, [facility] [id number] [place] [address]- 1624 Mar, [facility] [id number] [place] [address]- 7754 Mar, Hypokalemia E87.6 [facility] [id number] [place] [address]- 5955 16 Mar, 2015 Pain in right leg M79.604 ; Encounter for immunization Z23 ; Pain in right knee M25.561 and Hypokalemia E87.6 [facility] [id number] [place] [address]- 285[address] Jan, [place] [address] [place] [address]- [address] Jan, [facility] [id number] [address] Jan, Abdominal pain, generalized 789.07 [facility] [address] [address] Jan, Abdominal pain, generalized 789.07 [facility] [id number] [place] [address] Dec, [facility] [address] [address] Dec, [facility] [id number] [place] [address] 65[address] Dec, [facility] [address] [address] Nov, Hallux valgus 735.0 and Hammertoe 735.4 [facility] [address], [place] [address] Nov, [facility] [id number] [place] [address]- [address]2 Nov, Hallux valgus 735.0 and Hammer toe 735.4 [facility] [address], [place] [address] Oct, [facility] [address] [address] 2760 Oct, [facility] [address], [place] [address] 8[address] Oct, Pre-op evaluation V72.84 [facility] [address], [place] [address] 9989 Oct, [facility] [address] [address] Oct, [facility] [id number] [address] September, [facility] [address], [place] [address] September, [facility] [address] [address] September, Hallux valgus (acquired) 735.0 and Other hammer toe ( acquired) 735.4 [facility] [address] [facility] [id number] [address] Aug, [facility] [address] [id number] [place] [address] 8508 Aug, [facility] [address], [place] [address]- 96[address] Jul, [facility] [address] [address] 9180 Jul, [facility] [place] [facility] [address] [address]- 4715 Jul, [facility] [place] [facility] [address], [place] [address]- 6442 Jul, [facility] [place] [facility] [address], [place] [address]- 2752 Jul, [facility] [place] [facility] [address], [place] [address]- 4280 Jul, [facility] [place] [facility] [address] [id number] [address] 4947 Jul, [facility] [place] [facility] [address] [id number] [place] 1848 Jul, [facility] [place] [facility] [address] [id number] [address]- 9119 Jun, [facility] [place] [facility] [address] [id number] [place] [place] [address]- 2919 Jun, [facility] [place] [facility] [address] [facility] [id number] [place] [address]- 9435 Jun, 2014 [facility] [place] [facility] [address] [id number] [place] [address]- 1497 Jun, 2014 [facility] [place] [facility] [address] [id number] [place] [address]- 1464 Jun, 2014 [facility] [place] [facility] [address] [id number] [place] [address]- 4471 Jun, 2014 [facility] [place] [facility] [address] [id number] [place] [address]- 0218 Jun, 2014 [facility] [place] [facility] [address] [id number] [place] [address]- 7141 Jun, 2014 [facility] [place] [facility] [address] [facility] [id number] [place] [address]- 6611 Jun, [facility] [place] [facility] [address] [id number] [place] [address]- 0401 Jun, [facility] [place] [facility] [address] [id number] [place] [address]- 6614 May, [facility] [place] [facility] [address] [id number] [place] [address]- 9594 May, [facility] [place] [facility] [address] [id number] [place] [address]- 3453 May, [facility] [place] [facility] [address] [id number] [place] [address]- 5938 May, [facility] [place] [facility] [address] [id number] [place] [address]- 7071 May, [facility] [place] [facility] [address] [id number] [place] [address]- 2597 May, [facility] [place] [facility] [address] [id number] [place] [address]- 6596 May, [facility] [place] [facility] [address] [id number] [place] [address]- 8268 May, [facility] [address] [id number] [place] [address]- 4889 May, [facility] [place] [facility] [address] [id number] [place] [address]- 2668 May, [facility] [place] [facility] [address] [id number] [place] [address]- 1823 May, [facility] [place] [facility] [address] [id number] [place] [address]- 6991 May, [facility] [place] [facility] [address] [id number] [place] [address]- 2771 May, [facility] [place] [facility] [address] [id number] [place] [address]- 9004 May, [facility] [place] [facility] [address] [id number] [place] [address]- 2159 May, [facility] [place] [facility] [address] [id number] [place] [address]- 1254 May, [facility] [place] [facility] [address] [id number] [place] [address]- 4459 May, [facility] [place] [facility] [address] [id number] [place] [address]- 1440 May, [facility] [place] [facility] [address] [id number] [place] [address]- 5493 Apr, [facility] [place] [facility] [address] [id number] [place] [address]- 8051 Apr, [facility] [place] [facility] [address] [id number] [place] [address]- 7514 Apr, [facility] [place] [facility] [address] [id number] [place] [address]- 0396 Apr, [facility] [place] [facility] [address] [id number] [place] [address]- 9412 Apr, [facility] [place] [facility] [address] [id number] [place] [address]- 8957 Apr, [facility] [place] [facility] [address] [id number] [place] [address]- 4245 Apr, [facility] [place] [facility] [address] [id number] [place] [address]- 5399 Apr, [facility] [place] [facility] [address] [id number] [place] [address]- 9288 Apr, [facility] [place] [facility] [address] [id number] [place] [address]- 0753 Mar, [facility] [place] [facility] [address] [id number] [place] [address]- 0899 Mar, [facility] [place] [facility] [address] [id number] [place] [address]- 2951 Mar, [facility] [place] [facility] [address] [id number] [place] [address]- 3233 Mar, [facility] [place] [facility] [address] [id number] [place] [address]- 2732 Mar, [facility] [place] [facility] [address] [id number] [place] [address]- 7932 Feb, [facility] [place] [facility] [address] [id number] [place] [address]- 7904 Feb, [facility] [place] [facility] [address] [id number] [place] [address]- 2502 Feb, [facility] [place] [facility] [address] [id number] [place] [address]- 6672 Feb, [facility] [place] [facility] [address] [id number] [place] [address]- 5972 Feb, [facility] [place] [facility] [address] [id number] [place] [address]- 5636 Feb, [facility] [place] [facility] [address] [id number] [place] [address]- 0176 Feb, [facility] [place] [facility] [address] [id number] [place] [address]- 1449 Feb, 2013 [facility] [place] [facility] [address] [id number] [place] [address]- 4113 Feb, 2013 [facility] [place] [facility] [address] [id number] [place] [address]- 4486 Feb, 2013 [facility] [place] [facility] [address] [id number] [place] [address]- 8389 Feb, 2013 [facility] [place] [facility] [address] [id number] [place] [address]- 5881 Feb, 2013 [facility] [place] [facility] [address] [id number] [place] [address]- 2932 Feb, 2013 [facility] [place] [facility] [address] [id number] [place] [address]- 0430 Feb, 2013 [facility] [place] [facility] [address] [id number], [place] [address]- 2691 Feb, 2013 [facility] [place] [facility] [address] [id number] [place] [address]- 3117 Feb, [facility] [place] [facility] [address] [id number], [place] [address]- 3838 Jan, 2013 [facility] [place] [facility] [address] [id number], [place] [address]- 2810 23 Jan, 2013 [facility] [place] [facility] [address] [id number], [place] [address]- 4710 20 Sep, 2013 [facility] [place] [facility] [address] [id number] [place] [address]- 6886 19 Sep, 2013 [facility] [place] [facility] [address] [id number], [place] [address]- 7695 11 Jan, 2013 [facility] [place] [facility] [address] [id number], [place] [address]- 2602 11 Jan, 2013 [facility] [place] [facility] [address] [id number] [place] [address]- 2496 Jan, [facility] [place] [facility] [address] [id number] [place] [address]- 2910 Jan, [facility] [place] [facility] [address] [id number] [place] [address]- 8194 Dec, [facility] [place] [facility] [address] [id number] [place] [address]- 6555 Dec, [facility] [place] [facility] [address] [id number] [place] [address]- 9110 Nov, [facility] [place] [facility] [address] [id number] [place] [address]- 9815 Nov, [facility] [place] [facility] [address] [id number] [place] [address]- 3939 Nov, [facility] [place] [facility] [address] [id number] [place] [address]- 5875 Nov, [facility] [place] [facility] [address] [id number] [place] [address]- 4887 Nov, [facility] [place] [facility] [address] [id number] [place] [address]- 0655 Nov, [facility] [place] [facility] [address] [id number] [place] [address]- 1212 Nov, [facility] [place] [facility] [address] [id number] [place] [address]- 6945 Nov, [facility] [place] [facility] [address] [id number] [place] [address]- 5944 Nov, [facility] [place] [facility] [address] [id number] [place] [address]- 5733 Oct, [facility] [place] [facility] [address] [id number] [place] [address]- 9337 Oct, [facility] [place] [facility] [address] [id number] [place] [address]- 8167 Oct, [facility] [place] [facility] [address] [id number] [place] [address]- 7921 Oct, [facility] [place] [facility] [address] [id number] [place] [address]- 4756 Oct, [facility] [place] [facility] [address] [id number] [place] [address]- 2219 Oct, [facility] [place] [facility] [address] [id number] [place] [address]- 9424 September, [facility] [place] [facility] [address] [id number] [place] [address]- 9830 September, [facility] [place] [facility] [address] [id number] [place] [address]- 5221 September, [facility] [place] [facility] [address] [id number] [place] [address]- 8418 September, [facility] [place] [facility] [address] [id number] [place] [address]- 0391 September, [facility] [place] [facility] [address] [id number] [place] [address]- 0319 September, [facility] [place] [facility] [address] [id number] [place] [address]- 3593 September, [facility] [place] [facility] [address] [id number] [place] [address]- 3525 September, [facility] [place] [facility] [address] [id number] [place] [address]- 0327 September, [facility] [place] [facility] [address] [id number] [place] [address]- 1483 September, [facility] [place] [facility] [address] [id number] [place] [address]- 5181 September, [facility] [place] [facility] [address] [id number] [place] [address]- 4011 September, [facility] [place] [facility] [address] [id number] [place] [address]- 5846 September, [facility] [place] [facility] [address] [id number] [place] [address]- 1348 September, [facility] [place] [facility] [address] [id number] [place] 7502 September, [facility] [place] [facility] [address] [id number] [place] [address]- 8600 September, [facility] [place] [facility] [address] [id number] [place] [address]74 September, [facility] [place] [facility] [address] [id number] [place] [address]- 3266 September, [facility] [place] [facility] [address] [id number] [place] [address]- 3389 September, [facility] [place] [facility] [address] [id number] [place] [address]- 9648 September, [facility] [place] [facility] [address] [id number] [place] [address]- 4512 Aug, [facility] [place] [facility] [address] [id number] [place] [address]- 7261 Aug, [facility] [place] [facility] [address] [id number] [place] [address]- 3176 Aug, [facility] [place] [facility] [address] [id number] [place] [address]- 9810 Aug, [facility] [place] [facility] [address] [id number] [place] [address]- 4984 Aug, [facility] [place] [facility] [address] [id number] [place] [address]- 9476 Aug, [facility] [place] [facility] [address] [id number] [place] [address]- 0396 Aug, [facility] [place] [facility] [address] [id number] [place] [address]- 5502 Aug, [facility] [place] [facility] [address] [id number] [place] [address]- 5378 15 Aug, 2013 [facility] [address] [id number] [place] [address]- 2742 15 Aug, 2013 [facility] [place] [facility] [address] [id number] [place] [address]- 0616 14 Aug, 2013 [facility] [address] [id number] [place] [address]- 6935 05 Aug, 2013 [facility] [place] [facility] [address] [id number] [place] [address]- 6138 05 Aug, 2013 [facility] [address] [id number] [place] [address]- 6769 Aug, [facility] [address] [id number] [place] [address]- 2352 Aug, [facility] [address] [id number] [place] [address]- 2830 31 Jul, 2013 [facility] [address] [id number] [place] [address]- 7889 31 Jul, 2013 [facility] [place] [facility] [address] [id number] [place] [address]- 0748 27 Jul, [address] [facility] [address] [id number] [place] [address]- 8584 27 Jul, 2013 [facility] [place] [facility] [address] [id number] [place] [address]- 7034 20 Jul, 2013 [facility] [place] [facility] [address] [id number] [place] [address]- 4848 20 Jul, 2013 [facility] [place] [facility] [address] [id number] [place] [address]- 8477 18 Jul, 2013 [facility] [place] [facility] [address] [id number] [place] [address]- 6048 18 Jul, 2013 [facility] [place] [facility] [address] [id number] [place] [address]- 9599 06 Jul, 2013 [facility] [place] [facility] [address] [id number] [place] [address]- 8513 Jul, [facility] [place] [facility] [address] [id number] [place] [address]- 0169 Jul, [facility] [place] [facility] [address] [id number] [place] [address]- 6363 Jul, [facility] [place] [facility] [address] [id number] [place] [address]- 2610 Jul, [facility] [place] [facility] [address] [id number] [place] [address]- 0454 Jul, [facility] [place] [facility] [address] [id number] [place] [address]- 7026 Jul, [facility] [place] [facility] [address] [id number] [place] [address]- 4956 Jun, [facility] [place] [facility] [address] [id number] [place] [address]- 2391 Jun, [facility] [place] [facility] [address] [id number] [place] [address]- 8525 Jun, [facility] [place] [facility] [address] [id number] [place] [address]- 3676 Jun, [facility] [place] [facility] [address] [id number] [place] [address]- 8415 Jun, [facility] [place] [facility] [address] [id number], [place] [address]- 2844 Jun, [facility] [place] [facility] [address] [id number] [place] [address]- 4730 May, [facility] [place] [facility] [address] [id number] [place] [address]- 7469 May, [facility] [place] [facility] [address] [id number] [place] [address]- 2535 May, [facility] [place] [facility] [address] [id number] [place] [address]- 4274 May, [facility] [address] [id number] [place] [address]- 1604 May, [facility] [place] [facility] [address] [id number] [place] [address]- 2918 May, [facility] [place] [facility] [address] [id number] [place] [address]- 7766 May, [facility] [place] [facility] [address] [id number] [place] [address]- 2886 May, [facility] [place] [facility] [address] [id number] [place] [address]- 7946 May, [facility] [place] [facility] [address] [id number] [place] [address]- 4391 May, [facility] [place] [facility] [address] [id number] [place] [address]- 3264 May, [facility] [place] [facility] [address] [id number] [place] [address]- 4730 May, [facility] [place] [facility] [address] [id number] [place] [address]- 5872 May, [facility] [place] [facility] [address] [id number] [place] [address]- 7659 May, [facility] [place] [facility] [address] [id number] [place] [address]- 7257 May, [facility] [place] [facility] [address] [id number] [place] [address]- 3307 Apr, [facility] [place] [facility] [address] [id number] [place] [address]- 7683 Apr, [facility] [place] [facility] [address] [id number] [place] [address]- 3425 Apr, [facility] [place] [facility] [address] [id number] [place] [address]- 0809 Apr, [facility] [place] [facility] [address] [id number] [place] [address]- 6598 Apr, [facility] [address] [id number] [place] [address]- 1356 Apr, [facility] [address] [id number] [place] [address]- 6016 Apr, [facility] [address] [id number] [place] [address]- 4410 Apr, [facility] [address] [id number] [place] [address]- 2915 Apr, [facility] [address] [id number] [place] [address]- 5929 Apr, [facility] [address] [id number] [place] [address]- 7082 Mar, [facility] [address] [id number] [place] [address]- 0602 Mar, [facility] [address] [id number] [place] [address]- 1938 Mar, [facility] [address] [id number] [place] [address]- 8668 Mar, [facility] [address] [id number] [place] [address] Mar, [facility] [address] [id number] [place] [address] Mar, [facility] [place] [facility] [address] [id number] [place] [address] Mar, [facility] [place] [facility] [address] [id number] [place] [address] Mar, [facility] [place] [facility] [address] [id number] [place] [address] Mar, [facility] [place] [facility] [address] [id number] [place] [address] Mar, [facility] [place] [facility] [address] [id number] [place] [address] Mar, [facility] [place] [facility] [address] [id number] [place] [address] Mar, [facility] [place] [facility] [address] [id number] [place] [address] Mar, [facility] [place] [facility] [address] [id number], [place] [address] Mar, [facility] [place] [facility] [address] [id number] [place] [address] Mar, [facility] [place] [facility] [address] [id number] [place] [address] 18 Mar, 2013 [facility] [place] [facility] [address] [id number], [place] [address] Mar, [facility] [place] [facility] [address] [id number] [place] [address]- [address] Mar, [facility] [place] [facility] [address] [id number], [place] [address] Mar, [facility] [place] [facility] [address] [id number] [place] [address] Mar, [facility] [place] [facility] [address] [id number], [place] [address] Mar, [facility] [place] [facility] [address] [id number], [place] [address] Mar, [facility] [place] [facility] [address] [id number] [place] [address]- [address] Mar, [facility] [place] [facility] [address] [id number], [place] [address] Feb, [facility] [place] [facility] [address] [id number], [place] [address] Feb, [facility] [place] [facility] [address] [id number] [place] [address]- [address] 16 Feb, 2013 [facility] [address] [id number] [place] [address]- [address] 16 Feb, 2013 [facility] [place] [facility] [address] [id number] [place] [address]- [address] 15 Feb, 2013 [facility] [address] [id number] [place] [address] Feb, [facility] [place] [facility] [address] [id number] [place] [address]- [address] 09 Feb, 2013 [facility] [address] [id number] [place] [address]- [address] Feb, [facility] [address] [id number] [place] [address]- [address] 04 Feb, 2013 [facility] [place] [facility] [address] [id number] [place] [address] Feb, [facility] [address] [id number] [place] [address] 30 Jan, 2013 [facility] [place] [facility] [address] [id number] [place] [address]- 279[address] 26 Jan, 2013 [facility] [address] [id number] [place] [address]- [address] 24 Jan, 2013 [facility] [place] [facility] [address] [id number] [place] [address]- [address] 23 Jan, 2013 [facility] [place] [facility] [address] [id number] [place] [address] 17 Jan, 2013 [facility] [place] [facility] [address] [id number] [place] [address] 28 Dec, 2012 [facility] [place] [facility] [address] [id number] [place] [address] Dec, [facility] [place] [facility] [address] [id number] [place] [address]- [address] Dec, [facility] [address] [id number] [place] [address]- [address] Dec, [facility] [place] [facility] [address] [id number] [place] [address]- [address] Dec, [facility] [place] [facility] [address] [id number] [place] [address]- [address] Dec, [facility] [place] [facility] [address] [id number] [place] [address]- [address] Dec, [facility] [place] [facility] [address] [id number] [place] [address]- [address] Nov, [facility] [place] [facility] [address] [id number] [place] [address]- 67[address] Nov, [facility] [place] [facility] [address] [id number] [place] [address]- [address] Nov, [facility] [place] [facility] [address] [id number] [place] [address]- 1146 Nov, [facility] [place] [facility] [address] [id number] [place] [address]- [address] Nov, [facility] [place] [facility] [address] [id number] [place] [address]- [address] Oct, [facility] [place] [facility] [address] [id number] [place] [address]- 1465 Oct, [facility] [place] [facility] [address] [id number], [place] [address] Oct, [facility] [place] [facility] [address] [id number] [place] [address]- [address] September, [facility] [place] [facility] [address] [id number] [place] [address]- [address] September, [facility] [place] [facility] [address] [id number] [place] [address]- [address] September, [facility] [place] [facility] [address] [id number], [place] [address] September, [facility] [address] [id number] [place] [address]- [address] September, [facility] [address] [id number] [place] [address]- [address] September, [facility] [address] [facility] [id number] [place] [address]- [address] September, [facility] [address] [id number] [place] [address]- [address] 30 Aug, 2012 [facility] [address] [id number] [place] [address]- [address] Aug, [facility] [address] [id number] [place] [address]- [address] Aug, [facility] [address] [id number] [place] [place] [address] 29 Jul, 2012 [facility] [address] [id number] [place] [address]- [address] Jul, [facility] [address] [id number] [place] [place] [address] 26 Jul, 2012 [facility] [address] [facility] [id number] [place] [address]- [address] Jul, [facility] [address] [id number] [place] [address]- [address] 18 Jul, 2012 [facility] [address] [facility] [id number] [place] [address]- [address]684 18 Jul, 2012 [facility] [address] [id number] [place] [address]- 2948 13 Jul, 2012 [facility] [address] [facility] [id number] [place] [address]- [address] 28 Jun, 2012 [facility] [address] [facility] [id number] [place] [address]- [address]10 27 Jun, 2012 [facility] [address] [id number] [place] [address] Jun, [facility] [address] [id number] [place] [address] Jun, [facility] [place] [facility] [address] [id number] [place] [address] 2546 Jun, [facility] [place] [facility] [address] [id number] [place] [address] 2546 Jun, [facility] [place] [facility] [address] [id number] [place] [address] 2546 Jun, [facility] [place] [facility] [address] [id number] [place] [address] 2546 Jun, [facility] [place] [facility] [address] [id number] [place] [address] Jun, [facility] [place] [facility] [address] [id number] [place] [address] 7[address] Jun, [facility] [place] [facility] [address] [id number] [place] [address] May, [facility] [place] [facility] [address] [id number] [place] [address] 4[address] May, [facility] [place] [facility] [address] [id number] [place] [address] 2544 May, [facility] [place] [facility] [address] [id number] [place] [address] 2547 May, [facility] [place] [facility] [address] [id number] [place] [address] 6579 May, [facility] [place] [facility] [address] [id number] [place] [address] 2541 May, [facility] [place] [facility] [address] [id number] [place] [address] 2399 Apr, [facility] [place] [facility] [address] [id number] [place] [address] 5[address] 31 Apr, 2012 [facility] [place] [facility] [address] [id number] [place] [address] 3040 28 Apr, 2012 [facility] [place] [facility] [address] [id number] [place] [address] 4426 28 Apr, 2012 [facility] [place] [facility] [address] [id number] [place] [address]- 3386 26 Apr, 2012 [facility] [place] [facility] [address] [id number] [place] [address] 2597 Apr, [facility] [place] [facility] [address] [id number] [place] [address] 7201 Apr, [facility] [place] [facility] [address] [id number] [place] [address] 2154 29 Mar, 2012 [facility] [place] [facility] [address] [id number] [place] [address] 29 Mar, 2012 [facility] [place] [facility] [address] [id number] [place] [address] 2674 27 Mar, 2012 [facility] [place] [facility] [address] [id number] [place] [address] 8838 20 Mar, 2012 [facility] [place] [facility] [address] [facility] [id number] [place] [address] 3145 20 Mar, 2012 [facility] [place] [facility] [address] [id number] [place] [address] 8856 18 Mar, 2012 [facility] [place] [facility] [address] [id number] [place] [address]- 2543 18 Mar, 2012 [facility] [place] [facility] [address] [id number] [place] [address] 3606 16 Mar, 2012 [facility] [place] [facility] [address] [id number] [place] [address]- 9755 16 Mar, 2012 [facility] [place] [facility] [address] [facility] [id number] [place] [address]- 5747 16 Mar, 2012 [facility] [place] [facility] [address] [id number] [place] [address] 6446 Mar, [facility] [place] [facility] [address] [id number] [place] [address] Mar, [facility] [place] [facility] [address] [id number] [place] [address]- 7676 Mar, [facility] [place] [facility] [address] [id number] [place] [address] 4325 Mar, [facility] [place] [facility] [address] [id number] [place] [address] 2235 Mar, [facility] [place] [facility] [address] [id number] [place] [address] 9687 Mar, [facility] [place] [facility] [address] [id number] [place] [address] 7624 Mar, [facility] [place] [facility] [address] [id number] [place] [address] 8771 Feb, [facility] [place] [facility] [address] [id number] [place] [address] 5[address] Feb, [facility] [place] [facility] [address] [id number] [place] [address] 5230 Feb, [facility] [place] [facility] [address] [id number] [place] [address] 8868 Feb, [facility] [place] [facility] [address] [id number] [place] [address]- 2355 Feb, [facility] [place] [facility] [address] [id number] [place] [address] 0625 Feb, [facility] [place] [facility] [address] [id number] [place] [address]- 3447 Feb, [facility] [place] [facility] [address] [id number] [place] [address] Feb, [facility] [place] [facility] [address] [id number] [place] [address]- 6936 05 Feb, 2012 [facility] [place] [facility] [address] [id number] [place] [address] 0815 Feb, [facility] [place] [facility] [address] [id number] [place] [address]- 1476 Feb, [facility] [place] [facility] [address] [id number] [place] [address]- 0705 27 Jan, 2012 [facility] [place] [facility] [address] [id number] [place] [address]- 3797 25 Jan, 2012 [facility] [place] [facility] [address] [id number] [place] [address]- 8231 13 Jan, 2012 [facility] [place] [facility] [address] [id number] [place] [address]- 6993 12 Jan, 2012 [facility] [place] [facility] [address] [id number] [place] [address]- 3015 07 Jan, 2012 [facility] [place] [facility] [address] [id number] [place] [address] 8708 31 Dec, 2011 [facility] [place] [facility] [address] [id number] [place] [address]- 0032 24 Dec, 2011 [facility] [place] [facility] [address] [id number] [place] [address]- 0927 Dec, [facility] [place] [facility] [address] [id number] [place] [address]- 0296 18 Dec, 2011 [facility] [place] [facility] [address] [id number] [place] [address]- 8591 16 Dec, 2011 [facility] [place] [facility] [address] [id number] [place] [address]- 5634 Dec, [facility] [place] [facility] [address] [id number] [place] [address]- 6440 09 Dec, 2011 [facility] [place] [facility] [address] [id number] [place] [address]- 0415 Dec, [facility] [place] [facility] [address] [id number] [place] [address] 4182 Nov, [facility] [address] [id number] [place] [address]- 7521 Nov, [facility] [address] [id number] [place] [address] 3712 Nov, [facility] [address] [id number] [place] [address]- 9827 Nov, [facility] [address] [id number] [place] [address]- 7125 Nov, [facility] [address] [id number] [place] [address]- 4626 Oct, [facility] [address] [id number] [place] [address]- 1488 Oct, [facility] [address] [id number] [place] [address]- 2462 September, [facility] [address] [id number] [place] [address]- 3603 September, [facility] [address] [id number] [place] [address]- 8994 September, [facility] [address] [id number] [place] [address]- 9037 September, [facility] [address] [id number] [place] [address]- 2075 September, [facility] [address] [id number] [place] [address]- 9779 September, [facility] [address] [id number] [place] [address]- 5435 September, [facility] [address] [id number] [place] [address]- 2876 September, [facility] [address] [id number] [place] [address]- 1397 September, [facility] [address] [id number] [place] [address]- 9443 September, [facility] [address] [id number] [place] [address]- 6026 September, [facility] [address] [id number] [place] [address]- 2354 September, [facility] [address] [id number] [place] [address]- 7336 September, [facility] [address] [id number] [place] [address]- 1153 September, [facility] [address] [id number] [place] [address]- 6976 24 Aug, 2011 [facility] [address] [id number] [place] [address]- 6196 Aug, [facility] [address] [id number] [place] [address]- 7664 Aug, [facility] [address] [id number] [place] [address]- 5065 Aug, [facility] [address] [id number] [place] [address]- 4229 23 Jul, 2011 [facility] [address] [id number] [place] [address]- 8756 13 Jul, 2011 [facility] [address] [id number], [place] [address]- 5804 13 Jul, 2011 [facility] [address] [id number], [place] [address]- 9285 Jun, [facility] [address] [id number] [address] Jun, [facility] [address] [id number], [place] [address]- 0826 13 Jun, 2011 [facility] [address] [id number], [place] [address]- 6881 10 Jun, 2011 [facility] [address] [id number] [place] [address]- 2496 07 Jun, 2011 [facility] [address] [id number] [place] [address]- 9116 07 Jun, 2011 [facility] [address] [id number] [place] [address]- 6056 03 Jun, 2011 [facility] [address] [id number] [place] [address]- 7939 Jun, [facility] [address] [id number] [place] [address]- 1162 May, [facility] [address] [id number] [place] [address]- 1475 May, [facility] [address] [id number] [place] [address]- 6522 May, [facility] [address] [id number] [place] [address]- 9830 May, [facility] [address] [id number] [place] [address]- 8792 May, [facility] [address] [id number] [place] [address]- 9531 May, [facility] [address] [id number] [place] [address]- 2657 May, [facility] [address] [id number] [place] [address]- 5191 May, [facility] [address] [id number] [place] [address]- 0664 May, [facility] [address] [id number] [place] [address]- 6154 May, [facility] [address] [id number] [place] [address]- 1521 17 May, 2011 [facility] [place] [facility] [address] [id number] [place] [address]- 8883 13 May, 2011 [facility] [place] [facility] [address] [id number] [place] [address]- 0286 May, [facility] [place] [facility] [address] [id number] [place] [address] 2546 May, [facility] [place] [facility] [address] [id number] [place] [address]- 3922 30 Apr, 2011 [facility] [place] [facility] [address] [id number] [place] [address]- 6951 16 Apr, 2011 [facility] [place] [facility] [address] [id number] [place] [address]- 3945 Apr, [facility] [place] [facility] [address] [id number] [place] [address]- 6518 Mar, [facility] [place] [facility] [address] [id number] [place] [address]- 8379 Mar, [facility] [place] [facility] [address] [id number] [place] [address] 31 Feb, 2011 [facility] [place] [facility] [address] [id number] [place] [address]- 4666 Feb, [facility] [place] [facility] [address] [id number] [place] [address]- 0825 Feb, [facility] [place] [facility] [address] [id number] [place] [address]- 3100 20 Feb, 2011 [facility] [place] [facility] [address] [id number] [place] [address]- 0839 13 Feb, 2011 [facility] [place] [facility] [address] [id number] [place] [address]- 7579 28 Apr, 2010 [facility] [place] [facility] [address] [id number] [place] [address] 2542 22 Apr, 2010 [facility] [place] [facility] [address] [id number] [place] [address]- 0162 16 Apr, 2010 [facility] [place] [facility] [address] [id number] [place] [address]- 3626 15 Apr, 2010 [facility] [place] [facility] [address] [id number] [place] [address]- 2596 15 Apr, 2010 [facility] [place] [facility] [address] [facility] [id number] [place] [address] 2546 Apr, [facility] [place] [facility] [address] [id number] [place] [address]- 8941 24 Mar, 2010 [facility] [place] [facility] [address] [id number] [place] [address]- 6636 17 Mar, 2010 [facility] [place] [facility] [address] [id number] [place] [address]- 5011 Mar, [facility] [place] [facility] [address] [id number] [place] [address]- 7251 Feb, [facility] [place] [facility] [address] [id number], [place] [address]- 6538 Feb, [facility] [place] [facility] [address] [id number], [place] [address]- 0192 Feb, [facility] [place] [facility] [address] [id number], [place] [address]- 2317 15 Feb, 2010 [facility] [place] [facility] [address] [id number], [place] [address]- 1826 Dec, [facility] [place] [facility] [address] [id number], [place] [address]- 2516 Dec, [facility] [place] [facility] [address] [id number], [place] [address]- 8129 15 Oct, 2009 [facility] [place] [facility] [address] [id number], [place] [address]- 8795 Mar, [facility] [place] [facility] [address] [id number], [place] [address]- 2546 Mar, [facility] [place] [facility] [address] [facility] [id number] [place] [address] September, IMMUNIZATIONS No Known Immunizations SOCIAL HISTORY Never Assessed REASON FOR VISIT Controlled Med Refill 12/12/2016 PLAN OF CARE VITAL SIGNS MEDICATIONS Medication Instructions Dosage Frequency Start Date End Date Duration Status Acetaminophen-Codeine #3 300-30 MG Orally every 6 hrs 1 tablet as needed 6h Oct, 28 days Active RESULTS No Results PROCEDURES No Known procedures INSTRUCTIONS MEDICATIONS ADMINISTERED No Known Medications MEDICAL (GENERAL) HISTORY Type Description Date Medical [...]
--- OUTSIDE RECORDS SUMMARY | 2017-10-05 15:48 | XMS REPORT ---
Author Author VALERIE ZAVALA [facility] Address [address] [place] [address] Care Team Providers Care Legal Aid Name Role Phone VALERIE ZAVALA Unavailable PROBLEMS Type Condition ICD9-CM Code [id number] Code Onset Dates Condition Status SNOMED Code Problem Weight loss R63.4 Active 995564013 Problem Pulmonary emphysema, unspecified emphysema type J43.9 Active 32787626 Problem Insomnia, unspecified type G47.00 Active 503685510 Problem Other emphysema J43.8 Active 79340600 Problem Pain in right knee M25.561 Active 76023075 Problem Anxiety F41.9 Active 13544905 Problem Hypokalemia E87.6 Active 605548883 Problem Generalized anxiety disorder F41.1 Active 48816472 Problem Gastroesophageal reflux disease without esophagitis K21.9 Active 516728757 Problem Post-traumatic stress disorder, chronic F43.12 Active 77156032 Problem Neuropathy G62.9 Active 311269478 Problem Essential hypertension I10 Active 04423910 Problem Right foot pain M79.671 Active 69672655 Problem Back pain M54.9 Active 515719801 Problem UTI symptoms R39.9 Active 27863911 Problem Right low back pain, with sciatica presence unspecified M54.5 Active 547733983 Problem Depression, unspecified depression type F32.9 Active 80690269 Problem Tobacco abuse Z72.0 Active 83933504 Problem Chronic pain G89.29 Active 54317023 Problem Weight decrease R63.4 Active 457675295 Problem Bone pain M89.8X9 Active 49646691 Problem Right upper quadrant abdominal pain R10.11 Active 607818824 ALLERGIES No Information SOCIAL HISTORY Never Assessed PLAN OF CARE VITAL SIGNS Height 64 in 2016-05-30 Weight 110.6 lbs 2016-05-30 Temperature 98.1 degrees Fahrenheit 2016-05-30 Respiratory Rate 18 2016-05-30 Oximetry 99 % 2016-05-30 BMI 18.98 kg/m2 2016-05-30 MEDICATIONS Unknown Medications RESULTS No Results PROCEDURES Procedure Date Ordered Result Body Site MEASURE BLOOD OXYGEN LEVEL May 30, 2016 IMMUNIZATIONS No Known Immunizations MEDICAL (GENERAL) [...]
--- OUTSIDE RECORDS SUMMARY | 2017-10-05 15:48 | XMS REPORT ---
Author Author VALERIE ZAVALA [facility] Address [address] [place] [address] Care Team Providers Care Emergency Department Aide Name Role Phone VALERIE ZAVALA Unavailable PROBLEMS Type Condition ICD9-CM Code [id number] Code Onset Dates Condition Status SNOMED Code Problem Insomnia, unspecified type G47.00 Active 825918330 Problem Post-traumatic stress disorder, chronic F43.12 Active 59232395 Problem Pulmonary emphysema, unspecified emphysema type J43.9 Active 25894762 Problem Panic attacks F41.0 Active 601486686 Problem UTI symptoms R39.9 Active 68344232 Problem Other emphysema J43.8 Active 71228842 Problem Pain in right knee M25.561 Active 95762273 Problem Hypokalemia E87.6 Active 068999292 Problem Essential hypertension I10 Active 59105553 Problem Gastroesophageal reflux disease without esophagitis K21.9 Active 807045338 Problem Anxiety F41.9 Active 24821957 Problem Neuropathy G62.9 Active 750607855 Problem Back pain M54.9 Active 578092414 Problem Chronic pain G89.29 Active 01216146 Problem Right low back pain, with sciatica presence unspecified M54.5 Active 834636643 Problem Right foot pain M79.671 Active 36040532 Problem Tobacco abuse Z72.0 Active 46453565 Problem Weight decrease R63.4 Active 282430545 Problem Bone pain M89.8X9 Active 83834813 Problem Right upper quadrant abdominal pain R10.11 Active 108101897 Problem Generalized anxiety disorder F41.1 Active 49050525 Problem Depression, unspecified depression type F32.9 Active 51755865 Problem Weight loss R63.4 Active 852126032 ALLERGIES No Information SOCIAL HISTORY Never Assessed PLAN OF CARE VITAL SIGNS MEDICATIONS Medication Instructions Dosage Frequency Start Date End Date Duration Status Loratadine 10 MG Orally Once a day 1 tablet 24h 30 Active Lansoprazole 15 MG Orally Once a day 1 capsule 24h Active Ibuprofen 600 MG Orally Three times a day 1 tablet with food as needed 8h Active Dicyclomine HCl 20 MG Orally 2 times a day 1 tablet 30 to 60 minutes before meals 12h 30 days Active Potassium Chloride ER 20 MEQ Orally Once a day 1 capsule 24h 18 Mar, 2015 90 days Active Trazodone HCl 50 mg Orally Once a day 1-2 tablet at bedtime as needed 24h 19 Apr, 2016 Active Chlordiazepoxide HCl 10 mg Orally 1 in AM and 1 in afternoon and 2 at hs 1 capsule Active Percocet 10-325 MG Orally 4 times a day 1 tablet as needed 6h Jun, 28 days Active RESULTS No Results PROCEDURES No Known procedures IMMUNIZATIONS No Known Immunizations MEDICAL (GENERAL) HISTORY [...]
--- OUTSIDE RECORDS SUMMARY | 2017-10-05 15:50 | XMS REPORT ---
Author Author LACIE BANERJEE Organization [facility] Address [address] [place] [address] Care Team Providers Care Travel Accommodation Inspector Name Role Phone LAVONNE LACIE Unavailable PROBLEMS Type Condition ICD9-CM Code [id number] Code Onset Dates Condition Status SNOMED Code Problem Weight loss R63.4 Active 526418990 Problem Pulmonary emphysema, unspecified emphysema type J43.9 Active 56009528 Problem Insomnia, unspecified type G47.00 Active 660948977 Problem Other emphysema J43.8 Active 18291981 Problem Pain in right knee M25.561 Active 30217223 Problem Anxiety F41.9 Active 98770399 Problem Hypokalemia E87.6 Active 342348742 Problem Generalized anxiety disorder F41.1 Active 76985406 Problem Gastroesophageal reflux disease without esophagitis K21.9 Active 235598296 Problem Post-traumatic stress disorder, chronic F43.12 Active 41246802 Problem Neuropathy G62.9 Active 802665502 Problem Essential hypertension I10 Active 88550455 Problem Right foot pain M79.671 Active 22135552 Problem Back pain M54.9 Active 587670945 Problem UTI symptoms R39.9 Active 27920448 Problem Right low back pain, with sciatica presence unspecified M54.5 Active 828640826 Problem Depression, unspecified depression type F32.9 Active 84307020 Problem Tobacco abuse Z72.0 Active 13032281 Problem Chronic pain G89.29 Active 26903889 Problem Weight decrease R63.4 Active 234802797 Problem Bone pain M89.8X9 Active 37515249 Problem Right upper quadrant abdominal pain R10.11 Active 890150382 ALLERGIES Substance Reaction Event Type Date Status Sulfur rash Drug Allergy May, Active Remeron itching Drug Allergy May, Active Morphine Sulfate nausea Drug Allergy May, Active Fentanyl 25 Mcg/hr Patch 72 Hr Unknown Non Drug Allergy May, Active SOCIAL HISTORY No smoking Hx information available PLAN OF CARE Activity Details Follow Up 4 Weeks w PCP Reason: VITAL SIGNS Height 64 in 2016-06-09 Weight 118.9 lbs 2016-06-09 Temperature 97.2 degrees Fahrenheit 2016-06-09 Heart Rate 88 bpm 2016-06-09 Respiratory Rate 20 2016-06-09 Oximetry 100 % 2016-06-09 BMI 20.41 kg/m2 2016-06-09 Blood pressure systolic 142 mmHg 2016-06-09 Blood pressure diastolic 80 mmHg 2016-06-09 MEDICATIONS Medication Instructions Dosage Frequency Start Date End Date Duration Status Dicyclomine HCl 20 mg Orally 3 times a day 1 tablet 30 to 60 minutes before meals 8h 90 days Active Potassium Chloride ER 20 MEQ Orally Once a day 1 capsule 24h 18 Mar, 2015 90 days Active Loratadine 10 MG Orally Once a day 1 tablet 24h 30 Active Lansoprazole 15 MG Orally Once a day 1 capsule 24h Active Ibuprofen 600 MG Orally Three times a day 1 tablet with food as needed 8h Active Trazodone HCl 50 mg Orally Once a day 1-2 tablet at bedtime as needed 24h 19 Apr, 2016 Active Chlordiazepoxide HCl 10 mg Orally 1 in AM and 1 in afternoon and 2 at hs 1 capsule Active Percocet 10-325 MG Orally 4 times a day 1 tablet as needed 6h 30 Apr, 2016 28 days Active Macrobid 100 MG Orally every 12 hrs 1 capsule with food 12h Active RESULTS No Results PROCEDURES Procedure Date Ordered Related Diagnosis Body Site MEASURE BLOOD OXYGEN LEVEL Jun 09, 2016 [facility] VISIT ESTABLISHED PATIENT Jun 09, 2016 Office Visit, Est Pt., Level 4 Jun 09, 2016 IMMUNIZATIONS No Known Immunizations
--- OUTSIDE RECORDS SUMMARY | 2017-10-05 15:50 | XMS REPORT ---
Author Author VALERIE ZAVALA [facility] Address [address] [place] [address] Care Team Providers Care Engineer Soils Name Role Phone VALERIE ZAVALA Unavailable PROBLEMS Type Condition ICD9-CM Code [id number] Code Onset Dates Condition Status SNOMED Code Problem Insomnia, unspecified type G47.00 Active 204727934 Problem Post-traumatic stress disorder, chronic F43.12 Active 35780527 Problem Pulmonary emphysema, unspecified emphysema type J43.9 Active 16911941 Problem Panic attacks F41.0 Active 297391097 Problem UTI symptoms R39.9 Active 60288460 Problem Other emphysema J43.8 Active 87381562 Problem Pain in right knee M25.561 Active 36545161 Problem Hypokalemia E87.6 Active 354734473 Problem Essential hypertension I10 Active 05960887 Problem Gastroesophageal reflux disease without esophagitis K21.9 Active 945201634 Problem Anxiety F41.9 Active 18044454 Problem Neuropathy G62.9 Active 438532211 Problem Back pain M54.9 Active 419331815 Problem Chronic pain G89.29 Active 21911277 Problem Right low back pain, with sciatica presence unspecified M54.5 Active 586198048 Problem Right foot pain M79.671 Active 69392067 Problem Tobacco abuse Z72.0 Active 14294751 Problem Weight decrease R63.4 Active 984572393 Problem Bone pain M89.8X9 Active 75561600 Problem Right upper quadrant abdominal pain R10.11 Active 623662680 Problem Generalized anxiety disorder F41.1 Active 33354584 Problem Depression, unspecified depression type F32.9 Active 16988857 Problem Weight loss R63.4 Active 441302962 ALLERGIES No Information SOCIAL HISTORY Never Assessed [...]
--- OUTSIDE RECORDS SUMMARY | 2017-10-05 15:50 | XMS REPORT ---
Author Author VALERIE ZAVALA [facility] Address [address] [place] [address] Care Team Providers Care Block Feeder Name Role Phone VALERIE ZAVALA Unavailable PROBLEMS Type Condition ICD9-CM Code [id number] Code Onset Dates Condition Status SNOMED Code Problem Generalized anxiety disorder F41.1 Active 77952648 Problem Hypokalemia E87.6 Active 665332666 Problem Pulmonary emphysema, unspecified emphysema type J43.9 Active 00453721 Problem Right low back pain, with sciatica presence unspecified M54.5 Active 855797221 Problem Post-traumatic stress disorder, chronic F43.12 Active 78612094 Problem Pain in right knee M25.561 Active 18373004 Problem Gastroesophageal reflux disease without esophagitis K21.9 Active 093865691 Problem Neuropathy G62.9 Active 657330127 Problem Essential hypertension I10 Active 64829261 Problem Generalized abdominal pain R10.84 Active 615841662 Problem Kidney stones N20.0 Active 38940593 Problem Back pain M54.9 Active 622811400 Problem Right foot pain M79.671 Active 32561926 Problem UTI symptoms R39.9 Active 17108526 Problem Other emphysema J43.8 Active 05391848 Problem Anxiety F41.9 Active 86128223 Problem Renal calculus, right N20.0 Active 03001231 Problem Panic attacks F41.0 Active 160303833 Problem Depression, unspecified depression type F32.9 Active 29938108 Problem Weight decrease R63.4 Active 494640082 Problem Chronic pain G89.29 Active 60664292 Problem Bone pain M89.8X9 Active 99300574 Problem Weight loss R63.4 Active 330476808 Problem Insomnia, unspecified type G47.00 Active 487119681 Problem Tobacco abuse Z72.0 Active 32152237 Problem Right upper quadrant abdominal pain R10.11 Active 041045878 ALLERGIES Substance Reaction Event Type Date Status Sulfur rash Drug Allergy Feb, Active Remeron itching Drug Allergy Feb, Active Morphine Sulfate nausea Drug Allergy Feb, Active Fentanyl 25 Mcg/hr Patch 72 Hr Unknown Non Drug Allergy Feb, Active ENCOUNTERS Encounter Location Date Diagnosis [facility] [address], [place] [address] September, [facility] [id number] [place] [address] 39266- 1289 Aug, Medicare welcome exam Z00.00 [facility] [id number] [place] [address] 20283- 1122 Aug, [facility] [id number] [place] [address] 41717- 5549 Aug, Acute pyelonephritis N10 and Medicare welcome exam Z00.00 [facility] [id number] [place] [address] 73054 -8092 Aug, Dysuria R30.0 and Acute pyelonephritis N10 [facility] [id number] [place] [address] 86614- 5322 Aug, [facility] [id number] [place] [address] 21066- 7396 Aug, [facility] [address] [place] [address] 05389- 1852 Aug, [facility] [id number] [place] [address] 96423- 4473 Aug, [facility] [address] [place] [address] 26990- 3061 Jul, [facility] [id number] [place] [address] 78679- 2573 Jul, Renal calculus, right N20.0 and Medicare welcome exam Z00.00 [facility] [address], [place] [address] Jul, Dysuria R30.0 and Renal calculus, right N20.0 [facility] [address] [place] [address] 47793- 2538 Jul, Medicare welcome exam Z00.00 [facility] [id number] [place] [address] 16723- 2946 13 Jun, 2017 Gastroesophageal reflux disease without esophagitis K21.9 and Generalized abdominal pain R10.84 [facility] [id number] [place] [address] 36524- 8865 Jun, Medicare welcome exam Z00.00 [facility] [id number] [place] [address] 82165- 2900 Jun, [facility] [id number] [place] [address] 76796- 0471 Jun, Medicare welcome exam Z00.00 and Encounter for screening mammogram for malignant neoplasm of breast Z12.31 [facility] [id number] [place] [address] 31207- 6244 Jun, Chronic pain G89.29 [facility] [id number] [place] [address] 04236- 8017 May, [facility] [id number] [place] [address] 27028- 8833 May, Pelvic pain R10.2 [facility] [id number] [place] [address] 21867- 1581 May, Pelvic pain R10.2 [facility] [id number] [place] [address] 63875 -3542 May, Renal calculus, right N20.0 [facility] [id number] [place] [address] 62043- 9599 May, Hematuria, unspecified type R31.9 and Nephrolithiasis N20.0 [facility] [id number] [place] [address] 73703 -2582 May, Dysuria R30.0 and Nephrolithiasis N20.0 [facility] [address] [place] [address] 22321- 1252 May, [facility] [address] [place] [address] 26260 -9960 May, Abdominal pain R10.9 and Kidney stone N20.0 [facility] [id number] [place] [address] 44141- 0906 May, [facility] [id number] [place] [address] 64560- 0822 May, Chronic pain G89.29 and Panic attacks F41.0 [facility] [id number] [place] [address] 03687- 6103 May, Urinary tract infection without hematuria, site unspecified N39.0 [facility] [id number] [place] [address] 96732- 6761 Apr, Right lower quadrant abdominal pain R10.31 and Abnormal serum lipase level R74.8 [facility] [id number] [place] [address] 30054- 9968 Apr, Recurrent urinary tract infection N39.0 [facility] [id number] [place] [address] 01698- 2387 Apr, UTI symptoms R39.9 ; Recurrent urinary tract infection N39.0 and Pelvic pain R10.2 [facility] [address] [place] [address] 98307- 9308 Apr, Chronic pain G89.29 and Panic attacks F41.0 [facility] [id number] [place] [address] 37849- 8985 Apr, Dysuria R30.0 [facility] [address] [place] [address] 30051- 1625 Apr, [facility] [id number] [place] [address] 68200- 1901 Apr, Dysuria R30.0 and Urinary tract infection without hematuria , site unspecified N39.0 [facility] [id number] [place] [address] 51295- 6102 Mar, UTI symptoms R39.9 [facility] [id number] [place] [address] 92801- 9331 Mar, [facility] [address] 67857- 6332 Mar, Panic attacks F41.0 and Chronic pain G89.29 [facility] [id number] [place] [address] 56007- 2681 Mar, [facility] [id number] [place] [address] 35628- 7387 Mar, Dysuria R30.0 [facility] [address] 25366- 1952 Mar, Dysuria R30.0 [facility] [address] [place] [address] 00476- 5887 Feb, Chronic pain G89.29 ; Shortness of breath R06.02 ; Weight loss R63.4 ; Encounter for immunization Z23 ; Bone pain M89.8X9 ; Right anterior knee pain M25.561 and Cough R05 [facility] [address] [place] [address] 28713- 6531 Feb, Shortness of breath R06.02 [facility] [id number] [place] [address] 08942- 8917 Feb, [facility] [id number] [place] [address] 31956- 6773 Feb, Panic attacks F41.0 and Chronic pain G89.29 [facility] [id number] [place] [address] 97051- 9817 Feb, [facility] [address] 05714- 7877 Feb, Panic attacks F41.0 ; Shortness of breath R06.02 and Encounter for immunization Z23 [facility] [address] 43802- 9903 Jan, [facility] [address] 58887- 8775 15 Jan, 2017 Anxiety F41.9 and Chronic pain G89.29 [facility] [address] 68636- 4818 Dec, Anxiety F41.9 and Chronic pain G89.29 [facility] [address] 95521- 4753 Nov, Chronic pain G89.29 [facility] [address] 14407- 9186 Nov, Anxiety F41.9 [facility] [address] 03393- 5962 Nov, Chronic pain G89.29 ; Essential hypertension I10 and Other emphysema J43.8 [facility] [address] 20989- 3474 Oct, Anxiety F41.9 [facility] [address] 59340- 7026 Oct, [facility] [address] 46168- 3898 Oct, Chronic pain G89.29 [facility] [id number] [place] [address] 06398- 0160 September, Recurrent UTI N39.0 ; Neuropathy G62.9 and Anxiety F41.9 [facility] [id number] [place] [address] 84199- 4624 September, [facility] [address] 57755- 6284 September, Chronic pain G89.29 [facility] [address], [place] [address] 5[address] September, [facility] [address], [place] [address] 1796 Aug, Post-traumatic stress disorder, chronic F43.12 ; Chronic urinary tract infection N39.0 ; Gastroesophageal reflux disease without esophagitis K21.9 ; Chronic pain G89.29 ; Essential hypertension I10 and Tobacco abuse Z72.0 [facility] [address], [place] [address] Aug, [facility] [id number] [place] [address] 00815- 7309 Aug, Chronic pain G89.29 [facility] [address], [place] [address]- 7952 Aug, Insomnia, unspecified type G47.00 [facility] [address], [place] [address]- 7854 Aug, [facility] [address], [place] [address]- 7651 24 Jul, 2016 Chronic pain G89.29 [facility] [address], [place] [address]- 1110 Jul, [facility] [address], [place] [address]- 2720 Jul, [facility] [address] [place] [address]- 0444 Jul, [facility] [address], [place] [address]- 5499 15 Jul, 2016 Recurrent UTI (urinary tract infection) N39.0 [facility] [address], [place] [address]- 2099 14 Jul, 2016 [facility] [address], [place] [address]- 9547 Jun, Chronic pain G89.29 [facility] [id number] [place] [address] 52946- 3274 Jun, [facility] [id number] [place] [address] 95135- 2127 Jun, [facility] [id number] [place] [address] 10194- 6952 May, Chronic pain G89.29 [facility] [address] [place] [address] 74596- 1393 May, Weight loss R63.4 and Shortness of breath R06.02 [facility] [id number] [place] [address] 97271- 7281 May, Chronic pain G89.29 ; Weight loss R63.4 and Tobacco abuse Z72.0 [facility] [address] [place] [address] 05400- 6721 May, [facility] [id number] [place] [address] 39770- 6548 May, Hypoxia R09.02 [facility] [id number] [place] [address] 79136- 0284 May, [facility] [id number] [place] [address] 96462- 3750 May, Pulmonary emphysema, unspecified emphysema type J43.9 [facility] [address] [place] [address] 53390 -8313 May, [facility] [id number] [place] [address] 16182- 5961 May, [facility] [address] [place] [address] 51350- 7778 May, [facility] [address] [place] [address] 84515- 7999 May, Chronic pain G89.29 ; Encounter for immunization Z23 ; Right anterior knee pain M25.561 and Cough R05 [facility] [address] [place] [address] 99141- 3439 Apr, Chronic pain G89.29 [facility] [id number] [place] [address] 91678- 2586 Apr, [facility] [id number] [place] [address] 50089- 3346 Apr, Generalized anxiety disorder F41.1 and Depression, unspecified depression type F32.9 [facility] [address] [place] [address] 63956- 3166 Apr, Chronic pain G89.29 ; Hypokalemia E87.6 and Insomnia, unspecified type G47.00 [facility] [address] [place] [address] 36405- 1642 Apr, [facility] [address] 95528- 4918 Apr, Chronic pain G89.29 [facility] [id number] [place] [address] 67118- 8275 Apr, [facility] [id number] [place] [address] 54752- 5920 Mar, [facility] [address] [place] [address] 15359- 7979 Mar, Insomnia, unspecified type G47.00 [facility] [address] [place] [address] 47374- 5223 Mar, Chronic pain G89.29 [facility] [id number] [place] [address] 96098- 0149 Mar, [facility] [address] [place] [address] 24161- 2767 Feb, [facility] [id number] [place] [address] 20011- 0877 Feb, [facility] [address], [place] [address]- 7204 Feb, [facility] [address] [place] [address] 56142- 7880 Feb, [facility] [address], [place] [address]- 3028 Feb, [facility] [id number] [place] [address] 01937- 3957 29 Jan, 2016 [facility] [address] [place] [address] 32419- 1155 26 Jan, 2016 [facility] [id number] [place] [address], [place] [address]- 1033 20 Jan, 2016 [facility] [id number] [place] [address] 05626- 0604 13 Jan, 2016 [facility] [id number] [place] [address] 71430- 2645 12 Jan, 2016 [facility] [address] [place] [address] 29171- 2234 07 Jan, 2016 Chronic pain G89.29 [facility] [address] [place] [address] 41441- 7460 Jan, Chronic pain G89.29 and Fibromyalgia M79.7 [facility] [address] [place] [address] 89410- 6986 Dec, Depression, unspecified depression type F32.9 and Generalized anxiety disorder 300.02 [facility] [address], [place] [address]- 9126 Dec, Dysthymia F34.1 ; Insomnia, unspecified type G47.00 and Chronic pain G89.29 [facility] [address], [place] [address]- 7848 Dec, Chronic pain G89.29 [facility] [address] [place] [address] 03000- 1847 Dec, Insomnia, unspecified type G47.00 [facility] [address] [place] [address] 01246- 8413 Dec, Fibromyalgia M79.7 and Chronic pain G89.29 [facility] [id number] [place] [address] 89823- 9057 Dec, [facility] [address] 73487- 0238 Dec, [facility] [id number] [place] [address] 84593- 9831 Dec, [facility] [id number] [place] [address] 48049- 1183 Dec, [facility] [address] [place] [address] 56672- 8631 Dec, Chronic pain G89.29 [facility] [address] [place] [address] 49617- 3230 Dec, [facility] [id number] [place] [address] 73306- 1555 Dec, [facility] [id number] [place] [address] 83332- 0872 Dec, [facility] [address] [place] [address] 48299- 1667 Dec, Chronic pain G89.29 and Dysthymia F34.1 [facility] [address] [place] [address] 99984- 4544 Nov, [facility] [address] [place] [address] 36957- 2681 Nov, Hypokalemia E87.6 and Chronic pain G89.29 [facility] [id number] [place] [address] 29735- 0140 Nov, Back pain M54.9 and Pain in right knee M25.561 [facility] [address], [place] [address]- 1084 Nov, [facility] [address] [place] [address] 15021 2546 Nov, Chronic pain G89.29 [facility] [address] [place] [address] 78766 2547 Nov, Chronic pain G89.29 ; Weight loss R63.4 ; Bone pain M89.8X9 and Insomnia, unspecified type G47.00 [facility] [address] [place] [address] 35357- 5690 Nov, Chronic pain G89.29 [facility] [id number] [place] [address] 69160- 2740 Nov, Chronic pain G89.29 [facility] [id number] [place] [address] 60311- 9866 Oct, Chronic pain G89.29 [facility] [address] [place] [address] 19413- 2264 Oct, UTI symptoms R39.9 [facility] [id number] [place] [address] 38907 2546 Oct, Chronic pain G89.29 [facility] [address] [place] [address] 75068- 5334 Oct, Chronic pain G89.29 [facility] [address] [place] [address] 94198 254 13 Oct, 2015 Chronic pain G89.29 [facility] [address] [place] [address] 26177- 0872 06 Oct, 2015 Right upper quadrant abdominal pain R10.11 [facility] [address] [place] [address] 17136 254 06 Oct, 2015 Chronic pain G89.29 [facility] [address] [place] [address] 39345- 7666 Oct, [facility] [address], [place] [address]- 6110 September, Chronic pain G89.29 [facility] [address] [place] [address] 84835- 9331 September, Dysuria R30.0 and Urinary tract infection without hematuria , site unspecified N39.0 [facility] [id number] [place] [address] 68067- 0828 September, [facility] [address] [place] [address] 89981- 0752 September, Dysuria R30.0 [facility] [address] [place] [address] 13917- 5056 September, Chronic pain G89.29 [facility] [id number] [place] [address] 06532- 4076 September, Chronic pain G89.29 and Essential hypertension I10 [facility] [address] [place] [address] 75409- 9824 September, [facility] [id number] [place] [address] 69741- 3904 September, [facility] [address] [place] [address] 34354- 3840 September, [facility] [id number] [place] [address] 72685- 1391 Aug, UTI symptoms R39.9 [facility] [address] [place] [address] 48059- 8517 Aug, Dysuria R30.0 [facility] [address] [place] [address] 54574- 5193 Aug, [facility] [address] [place] [address] 87540- 6758 Aug, [facility] [id number] [place] [address] 68791- 8317 18 Aug, 2015 [facility] [id number] [place] [address] 90954- 9841 Aug, Chronic pain G89.29 [facility] [id number] [place] [address] 07386- 2062 Aug, Dysthymia F34.1 [facility] [id number] [place] [address] 10447- 1369 Aug, Conjunctivitis, unspecified conjunctivitis type, unspecified laterality H10.9 [facility] [id number] [place] [address] 47677- 1482 31 Jul, 2015 Chronic pain G89.29 ; Back pain M54.9 ; Tobacco abuse Z72.0 and Weight decrease R63.4 [facility] [id number] [place] [address] 51529- 5284 30 Jul, 2015 [facility] [id number] [place] [address] 50173- 3824 30 Jul, 2015 [facility] [address] [place] [address] 94326- 6845 24 Jul, 2015 Chronic pain G89.29 [facility] [id number] [place] [address] 60100- 9893 22 Jul, 2015 [facility] [id number] [place] [address] 46633- 6271 Jul, [facility] [id number] [place] [address] 10403- 2232 18 Jul, 2015 [facility] [id number] [place] [address] 03154- 7061 17 Jul, 2015 [facility] [id number] [place] [address] 64400- 8230 17 Jul, 2015 Chronic pain G89.29 [facility] [address] [place] [address] 19244- 3103 16 Jul, 2015 Chronic pain G89.29 [facility] [address] [place] [address] 16346- 8427 Jul, [facility] [id number] [place] [address] 68615- 9441 Jul, [facility] [id number] [place] [address] 83240- 4227 Jul, [facility] [address] 83992- 7008 Jul, [facility] [id number] [place] [address] 68816- 1859 Jun, [facility] [id number] [place] [address] 36313- 5936 Jun, Depression, unspecified depression type F32.9 [facility] [id number] [place] [address] 55941- 6082 Jun, Pain in right knee M25.561 [facility] [id number] [place] [address] 85102- 2377 Jun, Chronic pain G89.29 ; Back pain M54.9 ; Bone pain M89.8X9 and Weight loss R63.4 [facility] [id number] [place] [address] 16382- 9447 Jun, [facility] [id number] [place] [address] 88732- 4058 May, [facility] [id number] [place] [address] 07456- 4218 May, UTI symptoms R39.9 ; Pain in right knee M25.561 ; Right low back pain, with sciatica presence unspecified M54.5 ; Right foot pain M79.671 ; Hypokalemia E87.6 and Screening, lipid Z13.220 [facility] [id number] [place] [address] 88571- 5469 May, [facility] [id number] [address] May, [facility] [id number] [place] [address] 23369- 9676 Mar, [facility] [id number] [place] [address] [id number] 2546 Mar, [facility] [id number] [place] [address] 04720 2546 Mar, Hypokalemia E87.6 [facility] [id number] [place] [address] 69886 2546 Mar, Pain in right leg M79.604 ; Encounter for immunization Z23 ; Pain in right knee M25.561 and Hypokalemia E87.6 [facility] [id number] [place] [address] 17282- 3706 Jan, [facility] [id number] [place] [address] 13934 2546 Jan, [facility] [id number] [place] [address] 2546 Jan, Abdominal pain, generalized 789.07 [facility] [address], [place] [address] 2546 Jan, Abdominal pain, generalized 789.07 [facility] [id number] [place] [address] 86393 2546 Dec, [facility] [id number] [place] [address] 74535 2545 Dec, [facility] [id number] [place] [address] 98133 2546 Dec, [facility] [address], [place] [address] 2546 Nov, Hallux valgus 735.0 and Hammertoe 735.4 [facility] [address] [id number], [place] [address] 9[address] Nov, [facility] [address], [place] [address] 40[address] Nov, Hallux valgus 735.0 and Hammer toe 735.4 [facility] [address] [id number] [address] 3646 Oct, [facility] [address], [place] [address] 8117 Oct, [facility] [address] [id number] [address] 4715 Oct, Pre-op evaluation V72.84 [facility] [address], [place] [address] 0266 Oct, [facility] [address] [place] [address]- 8789 Oct, [facility] [address], [place] [address]- 2893 September, [facility] [address], [place] [address]- 3982 September, [facility] [address], [place] [address] 8333 September, Hallux valgus (acquired) 735.0 and Other hammer toe ( acquired) 735.4 [facility] [address] [id number], [place] [address] 8611 Aug, [facility] [id number], [place] [address] 8356 Aug, [facility] [address] [id number], [place] [address] 9903 Jul, [facility] [address] [id number] [address]80 Jul, [facility] [id number] [place] [address] 06 Jul, 2014 [facility] [place] [facility] [address] [id number] [place] [address]- 0131 05 Jul, 2014 [facility] [place] [facility] [address] [id number] [place] [address]- 5937 Jul, 2014 [facility] [place] [facility] [address] [id number] [place] [address]- 1114 Jul, 2014 [facility] [place] [facility] [address] [id number] [place] [address]- 3339 Jul, 2014 [facility] [place] [facility] [address] [id number] [place] [address]- 2902 Jul, 2014 [facility] [place] [facility] [address] [id number] [place] [address]- 1996 Jun, 2014 [facility] [place] [facility] [address] [id number] [place] [address]- 6848 Jun, 2014 [facility] [place] [facility] [address] [facility] [id number] [place] [address]- 3217 Jun, 2014 [facility] [place] [facility] [address] [facility] [id number] [place] [address]- 6234 Jun, 2014 [facility] [place] [facility] [address] [facility] [id number] [place] [address]- 5345 Jun, 2014 [facility] [place] [facility] [address] [facility] [id number] [place] [address]- 3792 Jun, 2014 [facility] [place] [facility] [address] [id number] [place] [address]- 5687 Jun, 2014 [facility] [place] [facility] [address] [id number] [place] [address]- 3959 Jun, 2014 [facility] [place] [facility] [address] [facility] [id number] [place] [address]- 7469 Jun, 2014 [facility] [place] [facility] [address] [facility] [id number] [place] [address]- 6352 Jun, [facility] [place] [facility] [address] [id number] [place] [address]- 6057 May, [facility] [place] [facility] [address] [id number] [place] [address]- 6359 May, [facility] [place] [facility] [address] [id number] [place] [address]- 3619 May, [facility] [place] [facility] [address] [id number] [place] [address]- 6138 May, [facility] [place] [facility] [address] [id number] [place] [address]- 2506 May, [facility] [place] [facility] [address] [id number] [place] [address]- 7169 May, [facility] [place] [facility] [address] [id number] [place] [address]- 9968 May, [facility] [place] [facility] [address] [id number] [place] [address]- 9334 May, [facility] [place] [facility] [address] [id number] [place] [address]- 3473 May, [facility] [place] [facility] [address] [id number] [place] [address]- 6675 May, [facility] [place] [facility] [address] [id number], [place] [address]- 7888 May, [facility] [place] [facility] [address] [id number], [place] [address]- 0561 May, [facility] [place] [facility] [address] [id number] [place] [address]- 5075 May, [facility] [place] [facility] [address] [id number] [place] [address]- 0721 May, [facility] [place] [facility] [address] [id number] [place] [address]- 4726 May, [facility] [place] [facility] [address] [id number] [place] [address]- 7463 May, [facility] [address] [id number] [place] [address]- 9956 May, [facility] [place] [facility] [address] [id number] [place] [address]- 6367 May, [facility] [place] [facility] [address] [id number] [place] [address]- 1691 Apr, [facility] [place] [facility] [address] [id number] [place] [address]- 0978 Apr, [facility] [place] [facility] [address] [id number] [place] [address]- 5701 Apr, [facility] [place] [facility] [address] [id number] [place] [address]- 1108 Apr, [facility] [place] [facility] [address] [id number] [place] [address]- 9698 Apr, [facility] [place] [facility] [address] [id number] [place] [address]- 4843 Apr, [facility] [place] [facility] [address] [id number] [place] [address]- 2738 Apr, [facility] [place] [facility] [address] [id number] [place] [address]- 0605 Apr, [facility] [place] [facility] [address] [id number] [place] [address]- 6072 Apr, [facility] [place] [facility] [address] [id number] [place] [address]- 0758 Mar, [facility] [place] [facility] [address] [id number] [place] [address]- 5578 Mar, [facility] [place] [facility] [address] [id number] [place] [address]- 2955 Mar, [facility] [place] [facility] [address] [id number] [place] [address]- 8734 Mar, [facility] [place] [facility] [address] [id number] [place] [address]- 9227 Mar, 2013 [facility] [place] [facility] [address] [id number] [place] [address]- 7824 Feb, [facility] [place] [facility] [address] [id number] [place] [address]- 5439 Feb, [facility] [place] [facility] [address] [id number] [place] [address]- 4344 Feb, [facility] [place] [facility] [address] [id number] [place] [address]- 1053 Feb, [facility] [place] [facility] [address] [id number] [place] [address]- 9622 Feb, [facility] [place] [facility] [address] [id number] [place] [address]- 0610 Feb, [facility] [place] [facility] [address] [id number] [place] [address]- 0713 Feb, [facility] [place] [facility] [address] [id number] [place] [address]- 4437 Feb, [facility] [place] [facility] [address] [id number] [place] [address]- 6301 Feb, [facility] [place] [facility] [address] [id number] [place] [address]- 0555 Feb, [facility] [place] [facility] [address] [id number] [place] [address]- 7722 Feb, [facility] [place] [facility] [address] [id number] [place] [address]- 5199 Feb, [facility] [place] [facility] [address] [id number] [place] [address]- 5196 Feb, [facility] [place] [facility] [address] [id number] [place] [address]- 0465 Feb, [facility] [place] [facility] [address] [id number] [place] [address]- 2156 Feb, [facility] [place] [facility] [address] [id number] [place] [address]- 9245 Feb, [facility] [place] [facility] [address] [id number] [place] [address]- 7326 Jan, [facility] [place] [facility] [address] [id number] [place] [address]- 6996 Jan, [facility] [place] [facility] [address] [id number] [place] [address]- 0669 20 Jan, 2013 [facility] [place] [facility] [address] [id number] [place] [address]- 4560 19 Jan, 2014 [facility] [place] [facility] [address] [id number] [place] [address]- 7831 Jan, [facility] [place] [facility] [address] [id number] [place] [address]- 1075 Jan, [facility] [place] [facility] [address] [id number] [place] [address]- 9360 Jan, [facility] [place] [facility] [address] [id number] [place] [address]- 5400 Jan, [facility] [place] [facility] [address] [id number] [place] [address]- 2144 Dec, [facility] [place] [facility] [address] [id number] [place] [address]- 9048 Dec, [facility] [place] [facility] [address] [id number] [place] [address]- 7945 Nov, [facility] [place] [facility] [address] [id number] [place] [address]- 6852 Nov, [facility] [place] [facility] [address] [id number] [place] [address]- 8231 Nov, [facility] [place] [facility] [address] [id number] [place] [address]- 6086 Nov, [facility] [place] [facility] [address] [id number] [place] [address]- 2807 Nov, [facility] [place] [facility] [address] [id number] [place] [address]- 6318 Nov, [facility] [place] [facility] [address] [id number] [place] [address]- 7995 Nov, [facility] [place] [facility] [address] [id number] [place] [address]- 8564 Nov, [facility] [place] [facility] [address] [id number] [place] [address]- 9245 Nov, [facility] [place] [facility] [address] [id number] [place] [address]- 4134 Oct, [facility] [place] [facility] [address] [id number] [place] [address]- 2975 Oct, [facility] [place] [facility] [address] [id number] [place] [address]- 5130 Oct, [facility] [place] [facility] [address] [id number] [place] [address]- 0291 Oct, [facility] [place] [facility] [address] [id number] [place] [address]- 1892 Oct, [facility] [place] [facility] [address] [id number] [place] [address]- 9026 Oct, [facility] [place] [facility] [address] [id number] [place] [address]- 2966 September, [facility] [place] [facility] [address] [id number] [place] [address]- 3100 September, [facility] [place] [facility] [address] [id number] [place] [address]- 7885 September, [facility] [place] [facility] [address] [id number] [place] [address]- 3283 September, [facility] [place] [facility] [address] [id number] [place] [address]- 4483 September, [facility] [address] [id number] [place] [address]- 9852 September, [facility] [place] [facility] [address] [id number] [place] [address]- 5075 September, [facility] [place] [facility] [address] [id number] [place] [address]- 5519 September, [facility] [place] [facility] [address] [id number] [place] [address]- 6772 September, [facility] [place] [facility] [address] [id number] [place] [address]- 5437 September, [facility] [place] [facility] [address] [id number] [place] [address]- 6142 September, [facility] [place] [facility] [address] [id number] [place] [address]- 2240 September, [facility] [place] [facility] [address] [id number] [place] [address]- 7107 September, [facility] [place] [facility] [address] [id number] [place] [address]- 8340 September, [facility] [place] [facility] [address] [id number] [place] [address]- 9998 September, [facility] [place] [facility] [address] [id number] [place] [address]- 5990 September, [facility] [place] [facility] [address] [id number] [place] [address]- 4605 September, [facility] [place] [facility] [address] [id number] [place] [address]- 6462 September, [facility] [place] [facility] [address] [id number] [place] [address]- 7500 September, [facility] [place] [facility] [address] [id number] [place] [address]- 9790 September, [facility] [place] [facility] [address] [id number] [place] [address]- 5605 29 Aug, 2013 [facility] [place] [facility] [address] [id number] [place] [address]- 2163 29 Aug, 2013 [facility] [place] [facility] [address] [id number] [place] [address]- 8585 28 Aug, 2013 [facility] [place] [facility] [address] [id number] [place] [address]- 5006 28 Aug, 2013 [facility] [place] [facility] [address] [id number] [place] [address]- 7912 18 Aug, 2013 [facility] [place] [facility] [address] [id number] [place] [address]- 6320 18 Aug, 2013 [facility] [place] [facility] [address] [id number] [place] [address]- 8265 16 Aug, 2013 [facility] [place] [facility] [address] [id number] [place] [address]- 8913 16 Aug, 2013 [facility] [place] [facility] [address] [id number] [place] [address]- 4309 15 Aug, 2013 [facility] [place] [facility] [address] [id number] [place] [address]- 5542 15 Aug, 2013 [facility] [place] [facility] [address] [id number] [place] [address]- 2696 14 Aug, 2013 [facility] [place] [facility] [address] [id number] [place] [address]- 4852 05 Aug, 2013 [facility] [place] [facility] [address] [id number] [place] [address]- 8786 Aug, [facility] [place] [facility] [address] [id number] [place] [address]- 2408 Aug, [facility] [place] [facility] [address] [id number] [place] [address]- 7852 Aug, [facility] [place] [facility] [address] [id number] [place] [address]- 5757 Jul, [facility] [place] [facility] [address] [id number] [place] [address]- 1526 31 Jul, 2013 [facility] [place] [facility] [address] [id number] [place] [address]- 5088 27 Jul, 2013 [facility] [place] [facility] [address] [id number] [place] [address]- 5126 27 Jul, 2013 [facility] [place] [facility] [address] [id number] [place] [address]- 6046 Jul, [facility] [place] [facility] [address] [id number] [place] [address]- 3259 Jul, [facility] [place] [facility] [address] [id number] [place] [address]- 0355 18 Jul, 2013 [facility] [place] [facility] [address] [id number] [place] [address]- 7045 18 Jul, 2013 [facility] [place] [facility] [address] [id number] [place] [address]- 8585 Jul, [facility] [place] [facility] [address] [id number] [place] [address]- 4434 06 Jul, 2013 [facility] [place] [facility] [address] [id number] [place] [address]- 1861 04 Jul, 2013 [facility] [place] [facility] [address] [id number] [place] [address]- 5566 04 Jul, 2013 [facility] [place] [facility] [address] [id number] [place] [address]- 1936 Jul, [facility] [place] [facility] [address] [id number] [place] [address]- 4729 Jul, [facility] [place] [facility] [address] [id number] [place] [address]- 5966 Jul, [facility] [place] [facility] [address] [id number] [place] [address]- 0866 18 Jun, 2013 [facility] [place] [facility] [address] [id number] [place] [address]- 8027 Jun, [facility] [place] [facility] [address] [id number] [place] [address]- 4673 Jun, [facility] [place] [facility] [address] [id number] [place] [address]- 5742 Jun, [facility] [place] [facility] [address] [id number] [place] [address]- 5026 Jun, [facility] [place] [facility] [address] [id number] [place] [address]- 5937 Jun, [facility] [place] [facility] [address] [id number] [place] [address]- 8473 May, [facility] [place] [facility] [address] [id number] [place] [address]- 8419 May, [facility] [place] [facility] [address] [id number] [place] [address]- 5873 May, [facility] [place] [facility] [address] [id number] [place] [address]- 5738 May, [facility] [place] [facility] [address] [id number] [place] [address]- 5247 May, [facility] [place] [facility] [address] [id number] [place] [address]- 3398 May, [facility] [place] [facility] [address] [id number] [place] [address]- 5421 May, [facility] [place] [facility] [address] [id number] [place] [address]- 1919 May, [facility] [place] [facility] [address] [id number] [place] [address]- 7571 May, [facility] [place] [facility] [address] [id number] [place] [address]- 3870 May, [facility] [place] [facility] [address] [id number] [place] [address]- 7001 May, [facility] [place] [facility] [address] [id number] [place] [address]- 6048 May, [facility] [address] [id number] [place] [address]- 2937 May, [facility] [address] [id number] [place] [address]- 6645 May, [facility] [address] [id number] [place] [address]- 2819 May, [facility] [address] [id number] [place] [address]- 0272 Apr, [facility] [address] [id number] [place] [address]- 2555 Apr, [facility] [address] [id number] [place] [address]- 6099 Apr, [facility] [address] [id number] [place] [address]- 1353 Apr, [facility] [address] [id number] [place] [address]- 0838 Apr, [facility] [address] [id number] [place] [address]- 2298 Apr, [facility] [address] [id number] [place] [address]- 2721 Apr, [facility] [address] [id number] [place] [address]- 5007 Apr, [facility] [address] [id number] [place] [address]- 7220 Apr, [facility] [place] [facility] [address] [id number] [place] [address] Apr, [facility] [address] [id number] [place] [address] Mar, [facility] [address] [id number] [place] [address] Mar, [facility] [place] [facility] [address] [id number] [place] [address] Mar, [facility] [place] [facility] [address] [id number] [place] [address] Mar, [facility] [place] [facility] [address] [id number] [place] [address] Mar, [facility] [place] [facility] [address] [id number] [place] [address] Mar, [facility] [place] [facility] [address] [id number] [place] [address] Mar, [facility] [place] [facility] [address] [id number] [place] [address] Mar, [facility] [place] [facility] [address] [id number] [place] [address] Mar, [facility] [place] [facility] [address] [id number] [place] [address] Mar, [facility] [place] [facility] [address] [id number] [place] [address] Mar, [facility] [place] [facility] [address] [id number], [place] [address] Mar, [facility] [place] [facility] [address] [id number], [place] [address] Mar, [facility] [place] [facility] [address] [id number], [place] [address] 19 Mar, 2013 [facility] [place] [facility] [address] [id number] [place] [address] 18 Mar, 2013 [facility] [place] [facility] [address] [id number], [place] [address] 18 Mar, 2013 [facility] [place] [facility] [address] [id number], [place] [address] 14 Mar, 2013 [facility] [place] [facility] [address] [id number], [place] [address] 14 Mar, 2013 [facility] [place] [facility] [address] [id number] [place] [address] Mar, [facility] [place] [facility] [address] [id number], [place] [address] Mar, [facility] [place] [facility] [address] [id number] [place] [address] Mar, [facility] [place] [facility] [address] [id number] [place] [address] Mar, [facility] [place] [facility] [address] [id number] [place] [address] Mar, [facility] [place] [facility] [address] [id number] [place] [address] Feb, [facility] [place] [facility] [address] [id number], [place] [address] Feb, [facility] [place] [facility] [address] [id number], [place] [address] Feb, [facility] [place] [facility] [address] [id number] [place] [address] 16 Feb, 2013 [facility] [place] [facility] [address] [facility] [id number], [place] [address] 15 Feb, 2013 [facility] [place] [facility] [address] [id number], [place] [address] 09 Feb, 2012 [facility] [place] [facility] [address] [id number], [place] [address] 09 Feb, 2013 [facility] [place] [facility] [address] [id number], [place] [address] 07 Feb, 2013 [facility] [place] [facility] [address] [id number], [place] [address] 04 Feb, 2013 [facility] [place] [facility] [address] [facility] [id number], [place] [address] 03 Feb, 2013 [facility] [place] [facility] [address] [id number] [place] [address] 30 Jan, 2012 [facility] [place] [facility] [address] [id number] [place] [address] 26 Jan, 2013 [facility] [place] [facility] [address] [id number] [place] [address] 2546 24 Jan, 2013 [facility] [place] [facility] [address] [id number] [place] [address] 2546 23 Jan, 2013 [facility] [place] [facility] [address] [id number] [place] [address] 2545 17 Jan, 2013 [facility] [place] [facility] [address] [id number] [place] [address] 28 Dec, 2012 [facility] [place] [facility] [address] [id number] [place] [address] Dec, [facility] [place] [facility] [address] [id number] [place] [address]- [address]104 16 Dec, 2012 [facility] [place] [facility] [address] [id number] [place] [address]- 1519 15 Dec, 2012 [facility] [place] [facility] [address] [id number] [place] [address]- [address] 14 Dec, 2012 [facility] [place] [facility] [address] [id number] [place] [address] Dec, [facility] [place] [facility] [address] [id number] [place] [address] Dec, [facility] [place] [facility] [address] [id number] [place] [address]- [address] 17 Nov, 2012 [facility] [place] [facility] [address] [id number] [place] [address] 2542 16 Nov, 2012 [facility] [place] [facility] [address] [id number] [place] [address] 2541 15 Nov, 2012 [facility] [place] [facility] [address] [id number] [place] [address] 2543 Nov, [facility] [address] [id number] [place] [address] Nov, [facility] [address] [id number] [place] [address] Oct, [facility] [address] [id number] [place] [address]347 Oct, [facility] [place] [facility] [address] [id number] [place] [address]40 Oct, [facility] [address] [id number] [place] [address] 49[address] September, [facility] [address] [id number] [place] [address] 95[address] September, [facility] [address] [id number] [place] [address]- 6206 September, [facility] [place] [facility] [address] [id number] [place] [address]- 56[address] September, [facility] [address] [id number] [place] [address]- 9533 September, [facility] [place] [facility] [address] [id number] [place] [address]- 65[address] September, [facility] [place] [facility] [address] [id number] [place] [address]- [address] September, [facility] [place] [facility] [address] [id number] [place] [address]- [address]096 30 Aug, 2012 [facility] [place] [facility] [address] [id number] [place] [address] Aug, [facility] [place] [facility] [address] [id number] [place] [address] Aug, [facility] [place] [facility] [address] [id number] [place] [address] Jul, [facility] [place] [facility] [address] [id number] [place] [address] 8597 27 Jul, 2012 [facility] [place] [facility] [address] [id number] [place] [address]- 4595 26 Jul, 2012 [facility] [place] [facility] [address] [id number] [place] [address] 2421 20 Jul, 2012 [facility] [place] [facility] [address] [id number] [place] [address] 2545 18 Jul, 2012 [facility] [place] [facility] [address] [id number] [place] [address] 2549 18 Jul, 2012 [facility] [place] [facility] [address] [id number] [place] [address]- 5525 13 Jul, 2012 [facility] [place] [facility] [address] [facility] [id number] [place] [address] 7858 28 Jun, 2012 [facility] [place] [facility] [address] [facility] [id number] [place] [address]- 2330 27 Jun, 2012 [facility] [place] [facility] [address] [facility] [id number] [place] [address]- 5227 22 Jun, 2012 [facility] [place] [facility] [address] [id number] [address] 277[address] 20 Jun, 2012 [facility] [place] [facility] [address] [facility] [id number] [place] [address]- 2018 15 Jun, 2012 [facility] [place] [facility] [address] [facility] [id number] [place] [address]- 4359 15 Jun, 2012 [facility] [place] [facility] [address] [id number] [place] [address]- 2543 13 Jun, 2012 [facility] [place] [facility] [address] [facility] [id number] [place] [address]- 6962 12 Jun, 2012 [facility] [place] [facility] [address] [facility] [id number] [place] [address]- 2548 01 Jun, 2012 [facility] [place] [facility] [address] [facility] [id number] [place] [address]- 7399 Jun, [facility] [address] [id number] [place] [address]- 8538 May, [facility] [place] [facility] [address] [id number] [place] [address]- 8246 May, [facility] [place] [facility] [address] [id number] [place] [address]- 4026 May, [facility] [place] [facility] [address] [id number] [place] [address]- 8576 May, [facility] [place] [facility] [address] [id number] [place] [address]- 8415 May, [facility] [place] [facility] [address] [id number] [place] [address]- 5256 May, [facility] [place] [facility] [address] [id number] [place] [address]- 3726 Apr, [facility] [place] [facility] [address] [id number] [place] [address]- 4640 31 Apr, 2012 [facility] [place] [facility] [address] [id number] [place] [address]- 8247 Apr, [facility] [place] [facility] [address] [id number] [place] [address]- 0868 Apr, [facility] [place] [facility] [address] [id number] [place] [address]- 2024 Apr, [facility] [place] [facility] [address] [id number] [place] [address]- 6172 Apr, [facility] [place] [facility] [address] [id number] [place] [address]- 3713 Apr, [facility] [place] [facility] [address] [id number] [place] [address]- 2087 Mar, [facility] [place] [facility] [address] [id number] [place] [address]- 6596 Mar, [facility] [place] [facility] [address] [id number] [place] [address]- 3236 27 Mar, 2012 [facility] [place] [facility] [address] [id number] [place] [address]- 9047 Mar, [facility] [place] [facility] [address] [id number] [place] [address]- 3456 Mar, [facility] [place] [facility] [address] [id number] [place] [address]- 5597 Mar, [facility] [place] [facility] [address] [id number] [place] [address]- 7563 18 Mar, 2012 [facility] [place] [facility] [address] [id number] [place] [address]- 4542 16 Mar, 2012 [facility] [place] [facility] [address] [id number] [place] [address]- 5222 Mar, [facility] [place] [facility] [address] [facility] [id number] [place] [address]- 4161 Mar, [facility] [place] [facility] [address] [id number] [place] [address]- 9304 Mar, [facility] [place] [facility] [address] [facility] [id number] [place] [address]- 1151 Mar, [facility] [place] [facility] [address] [facility] [id number] [place] [address]- 1377 Mar, [facility] [place] [facility] [address] [id number] [place] [address] 2540 Mar, [facility] [place] [facility] [address] [id number] [place] [address]- 2225 Mar, [facility] [place] [facility] [address] [id number] [place] [address]- 4444 Mar, [facility] [place] [facility] [address] [facility] [id number] [place] [address]- 4347 Mar, [facility] [place] [facility] [address] [id number] [place] [address]- 3522 Feb, [facility] [place] [facility] [address] [id number] [place] [address]- 7460 Feb, [facility] [place] [facility] [address] [id number] [place] [address]- 1748 Feb, [facility] [place] [facility] [address] [id number] [place] [address]- 9212 Feb, [facility] [place] [facility] [address] [id number] [place] [address]- 8888 Feb, [facility] [place] [facility] [address] [id number] [place] [address]- 0593 Feb, [facility] [place] [facility] [address] [id number] [place] [address]- 4840 Feb, [facility] [place] [facility] [address] [id number] [place] [address]- 7041 Feb, [facility] [place] [facility] [address] [id number], [place] [address]- 2118 05 Feb, 2012 [facility] [place] [facility] [address] [id number] [place] [address]- 0135 Feb, [facility] [place] [facility] [address] [facility] [id number], [place] [address]- 4405 02 Feb, 2012 [facility] [place] [facility] [address] [facility] [id number], [place] [address]- 4520 27 Jan, 2012 [facility] [place] [facility] [address] [id number], [place] [address]- 6683 25 Sep, 2011 [facility] [place] [facility] [address] [id number], [place] [address]- 3640 13 Sep, 2011 [facility] [place] [facility] [address] [id number], [place] [address]- 3477 12 Sep, 2011 [facility] [place] [facility] [address] [facility] [id number], [place] [address]- 3450 07 Sep, 2011 [facility] [place] [facility] [address] [id number], [place] [address]- 5084 Dec, [facility] [place] [facility] [address] [id number] [place] [address]- 6379 Dec, [facility] [place] [facility] [address] [id number] [place] [address]- 0152 Dec, [facility] [place] [facility] [address] [id number] [place] [address]- 2110 Dec, [facility] [place] [facility] [address] [id number] [place] [address]- 0959 Dec, [facility] [place] [facility] [address] [id number] [place] [address]- 6897 Dec, [facility] [place] [facility] [address] [id number] [place] [address]- 6276 Dec, [facility] [place] [facility] [address] [id number] [place] [address]- 1131 Dec, [facility] [place] [facility] [address] [id number] [place] [address]- 3212 Nov, [facility] [place] [facility] [address] [id number] [place] [address]- 3035 Nov, [facility] [place] [facility] [address] [id number] [place] [address]- 8717 Nov, [facility] [place] [facility] [address] [id number] [place] [address]- 6226 Nov, [facility] [place] [facility] [address] [id number] [place] [address]- 2570 Nov, [facility] [place] [facility] [address] [id number] [place] [address]- 7513 Oct, [facility] [place] [facility] [address] [id number] [place] [address]- 3674 Oct, [facility] [place] [facility] [address] [id number] [place] [address]- 7171 September, [facility] [place] [facility] [address] [id number] [place] [address]- 0266 September, [facility] [address] [id number] [place] [address]- 4176 September, [facility] [place] [facility] [address] [id number] [place] [address] 2546 September, [facility] [address] [id number] [place] [address]- 6246 September, [facility] [address] [id number] [place] [address]- 5276 September, [facility] [address] [id number] [place] [address]- 2936 September, [facility] [address] [id number] [place] [address]- 4046 September, [facility] [address] [id number] [place] [address]- 7166 September, [facility] [address] [id number] [place] [address]- 9094 September, [facility] [address] [id number] [place] [address]- 3476 September, [facility] [address] [id number] [place] [address]- 7536 September, [facility] [address] [id number] [place] [address]- 6126 September, [facility] [address] [id number] [place] [address]- 4356 September, [facility] [place] [facility] [address] [id number] [place] [address]- 7866 Aug, [facility] [place] [facility] [address] [id number] [place] [address]- 1936 Aug, [facility] [place] [facility] [address] [id number] [place] [address]- 6729 13 Aug, 2011 [facility] [address] [id number] [place] [address]- 0201 11 Aug, 2011 [facility] [place] [facility] [address] [id number] [place] [address]- 3716 23 Jul, 2011 [facility] [address] [facility] [id number] [place] [address]- 5169 13 Jul, 2011 [facility] [address] [id number] [place] [address]- 1112 13 Jul, 2011 [facility] [address] [facility] [id number] [place] [address]- 7572 28 Jun, 2011 [facility] [id number] 26 Jun, 2011 [facility] [address] [id number] [address]- 5649 13 Jun, 2011 [facility] [address] [id number], [place] [address]- 7787 10 Jun, 2011 [facility] [address] [id number] [place] [address]- 2388 07 Jun, 2011 [facility] [place] [facility] [address] [id number] [place] [address]- 2314 07 Jun, 2011 [facility] [address] [id number], [place] [address]- 8992 Jun, [facility] [place] [facility] [address] [id number], [place] [address]- 9074 Jun, [facility] [place] [facility] [address] [id number], [place] [address]- 9010 May, [facility] [place] [facility] [address] [id number] [place] [address]- 3882 May, [facility] [place] [facility] [address] [id number], [place] [address]- 7511 May, [facility] [place] [facility] [address] [id number] [place] [address]- 0018 May, [facility] [address] [id number] [place] [address]- 3558 May, [facility] [address] [id number] [place] [address]- 7126 May, [facility] [address] [id number] [place] [address]- 5220 May, [facility] [address] [id number] [place] [address]- 2485 May, [facility] [address] [id number] [place] [address]- 0903 May, [facility] [address] [id number] [place] [address]- 1683 May, [facility] [address] [id number] [place] [address]- 3063 May, [facility] [address] [id number] [place] [address]- 9850 May, [facility] [address] [id number] [place] [address]- 9422 May, [facility] [address] [id number] [place] [address]- 2049 May, [facility] [address] [id number] [place] [address]- 4512 Apr, [facility] [address] [id number] [place] [address]- 6494 Apr, [facility] [address] [id number] [place] [address]- 6301 Apr, [facility] [address] [id number] [place] [address]- 2546 Mar, [facility] [address] [id number] [place] [address]- 9073 Mar, [facility] [place] [facility] [address] [id number] [place] [address]- 3651 31 Feb, 2011 [facility] [place] [facility] [address] [id number] [place] [address]- 5776 26 Feb, 2011 [facility] [place] [facility] [address] [id number] [place] 7326 21 Feb, 2011 [facility] [place] [facility] [address] [id number] [place] [address]- 1936 20 Feb, 2011 [facility] [place] [facility] [address] [id number] [place] [address]- 7759 13 Feb, 2011 [facility] [place] [facility] [address] [id number] [place] [address]- 7820 28 Apr, 2010 [facility] [place] [facility] [address] [id number] [place] [address]- 6426 22 Apr, 2010 [facility] [place] [facility] [address] [id number] [place] [address]- 2425 16 Apr, 2010 [facility] [place] [facility] [address] [id number] [place] [address]- 9793 15 Apr, 2010 [facility] [place] [facility] [address] [id number] [place] [address]- 1450 15 Apr, 2010 [facility] [place] [facility] [address] [id number] [place] [address]- 8921 Apr, [facility] [place] [facility] [address] [id number], [place] [address]- 8984 24 Mar, 2010 [facility] [place] [facility] [address] [id number] [place] [address]- 2090 Mar, [facility] [place] [facility] [address] [id number] [place] 4386 Mar, [facility] [place] [facility] [address] [id number] [place] 7137 28 Feb, 2010 [facility] [place] [facility] [address] [id number], [place] [address]- 3106 Feb, [facility] [address], [place] [address]- 1178 Feb, [facility] [address], [place] [address]- 2286 Feb, [facility] [address], [place] [address]- 2175 Dec, [facility] [address], [place] [address]- 7092 Dec, [facility] [address]65[address], [place] [address]- 2741 Oct, [facility] [address], [place] [address]- 9539 Mar, [facility] [address], [place] [address]- 4122 Mar, [facility] [address], [place] [address]- 0657 September, IMMUNIZATIONS Vaccine Route Administration Date Status FLUARIX QUAD (3 AND UP) 2016 IM Intramuscular Feb 15, 2017 Administered SOCIAL HISTORY Never Assessed REASON FOR VISIT SOB and an increase in panic attacks- Pat [place] PLAN OF CARE Activity Details Follow Up 4 Weeks Reason:panic attacks VITAL SIGNS Height 64 in 2017-02-15 Weight 124.6 lbs 2017-02-15 Temperature 97.9 degrees Fahrenheit 2017-02-15 Heart Rate 82 bpm 2017-02-15 Respiratory Rate 18 2017-02-15 Oximetry 90 % 2017-02-15 BMI 21.39 kg/m2 2017-02-15 Blood pressure systolic 146 mmHg 2017-02-15 Blood pressure diastolic 86 mmHg 2017-02-15 MEDICATIONS Medication Instructions Dosage Frequency Start Date End Date Duration Status Acetaminophen-Codeine #3 300-30 MG Orally every 6 hrs 1 tablet as needed 6h Oct, 28 days Active Toprol XL 50 MG Orally once daily 1 tablet 24h Aug, 30 Active Ventolin HFA 108 (90 Base) MCG/ACT Inhalation every 4 hrs 2 puffs as needed 4h Nov, Active Chlordiazepoxide HCl 10 mg Orally Three times a day 2 tablets 8h Aug, Active Robaxin 500 mg Orally 4 times a day 1 tablet 6h Aug, 30 days Active Bentyl 20 MG Orally Once a day 1 tablet 24h Active RESULTS No Results PROCEDURES Procedure Date Ordered Result Body Site MEASURE BLOOD OXYGEN LEVEL Feb 15, 2017 FLUARIX QUAD (3 & UP)--2014Feb 15, 2017 FQ VISIT ESTABLISHED PATIENT Feb 15, 2017 SINGLE IMMUNIZATION ADMIN Feb 15, 2017 INSTRUCTIONS MEDICATIONS ADMINISTERED No Known Medications MEDICAL [...]
--- OUTSIDE RECORDS SUMMARY | 2017-10-05 15:50 | XMS REPORT ---
Author Author VALERIE ZAVALA Organization [facility] Address [address] [place] [address] Care Team Providers Care Child Attendant Name Role Phone VALERIE ZAVALA Unavailable PROBLEMS Type Condition ICD9-CM Code [id number] Code Onset Dates Condition Status SNOMED Code Problem Weight loss R63.4 Active 280945652 Problem Pulmonary emphysema, unspecified emphysema type J43.9 Active 35588590 Problem Insomnia, unspecified type G47.00 Active 664151094 Problem Other emphysema J43.8 Active 46631730 Problem Pain in right knee M25.561 Active 66143382 Problem Anxiety F41.9 Active 87567850 Problem Hypokalemia E87.6 Active 577731303 Problem Generalized anxiety disorder F41.1 Active 40165340 Problem Gastroesophageal reflux disease without esophagitis K21.9 Active 150857996 Problem Post-traumatic stress disorder, chronic F43.12 Active 03724697 Problem Neuropathy G62.9 Active 358511470 Problem Essential hypertension I10 Active 00477386 Problem Right foot pain M79.671 Active 60464240 Problem Back pain M54.9 Active 120327465 Problem UTI symptoms R39.9 Active 16991829 Problem Right low back pain, with sciatica presence unspecified M54.5 Active 411246363 Problem Depression, unspecified depression type F32.9 Active 34980139 Problem Tobacco abuse Z72.0 Active 72755123 Problem Chronic pain G89.29 Active 92101551 Problem Weight decrease R63.4 Active 733421036 Problem Bone pain M89.8X9 Active 93390199 Problem Right upper quadrant abdominal pain R10.11 Active 018822026 ALLERGIES Unknown Allergies SOCIAL HISTORY No smoking Hx information available PLAN OF CARE VITAL SIGNS MEDICATIONS Unknown Medications RESULTS No Results PROCEDURES No Known procedures IMMUNIZATIONS No Known Immunizations
--- OUTSIDE RECORDS SUMMARY | 2017-10-05 15:51 | XMS REPORT ---
Author Author VALERIE ZAVALA [facility] Address [address] [place] [address] Care Team Providers Care Admission Discharge Rn Name Role Phone VALERIE ZAVALA Unavailable PROBLEMS Type Condition ICD9-CM Code [id number] Code Onset Dates Condition Status SNOMED Code Problem Insomnia, unspecified type G47.00 Active 430001797 Problem Post-traumatic stress disorder, chronic F43.12 Active 18157643 Problem Pulmonary emphysema, unspecified emphysema type J43.9 Active 63849560 Problem Panic attacks F41.0 Active 698012279 Problem UTI symptoms R39.9 Active 60406739 Problem Other emphysema J43.8 Active 09894267 Problem Pain in right knee M25.561 Active 00154524 Problem Hypokalemia E87.6 Active 258841766 Problem Essential hypertension I10 Active 21445940 Problem Gastroesophageal reflux disease without esophagitis K21.9 Active 123394111 Problem Anxiety F41.9 Active 64125136 Problem Neuropathy G62.9 Active 092707127 Problem Back pain M54.9 Active 975691724 Problem Chronic pain G89.29 Active 08959515 Problem Right low back pain, with sciatica presence unspecified M54.5 Active 773251282 Problem Right foot pain M79.671 Active 06208177 Problem Tobacco abuse Z72.0 Active 59403282 Problem Weight decrease R63.4 Active 359309833 Problem Bone pain M89.8X9 Active 41181157 Problem Right upper quadrant abdominal pain R10.11 Active 651036472 Problem Generalized anxiety disorder F41.1 Active 09462801 Problem Depression, unspecified depression type F32.9 Active 52561878 Problem Weight loss R63.4 Active 585808898 ALLERGIES No Information SOCIAL HISTORY Never Assessed PLAN OF CARE VITAL SIGNS MEDICATIONS No Known Medications RESULTS No Results PROCEDURES No Known [...]
--- OUTSIDE RECORDS SUMMARY | 2017-10-05 15:51 | XMS REPORT ---
Author Author VALERIE ZAVALA Organization [facility] Address [address] [place] [address] Care Team Providers Care [employer] Principal Name Role Phone VALERIE ZAVALA Unavailable PROBLEMS Type Condition ICD9-CM Code [id number] Code Onset Dates Condition Status SNOMED Code Problem Weight loss R63.4 Active 490658640 Problem Pulmonary emphysema, unspecified emphysema type J43.9 Active 36273591 Problem Insomnia, unspecified type G47.00 Active 407497268 Problem Other emphysema J43.8 Active 90962333 Problem Pain in right knee M25.561 Active 08220444 Problem Anxiety F41.9 Active 08104090 Problem Hypokalemia E87.6 Active 000086466 Problem Generalized anxiety disorder F41.1 Active 21280703 Problem Gastroesophageal reflux disease without esophagitis K21.9 Active 849538520 Problem Post-traumatic stress disorder, chronic F43.12 Active 62839735 Problem Neuropathy G62.9 Active 097638517 Problem Essential hypertension I10 Active 30467484 Problem Right foot pain M79.671 Active 08691719 Problem Back pain M54.9 Active 819974292 Problem UTI symptoms R39.9 Active 61320033 Problem Right low back pain, with sciatica presence unspecified M54.5 Active 169696671 Problem Depression, unspecified depression type F32.9 Active 72580093 Problem Tobacco abuse Z72.0 Active 81445658 Problem Chronic pain G89.29 Active 28773198 Problem Weight decrease R63.4 Active 114103144 Problem Bone pain M89.8X9 Active 45974781 Problem Right upper quadrant abdominal pain R10.11 Active 545985897 ALLERGIES Unknown Allergies SOCIAL HISTORY No smoking Hx information available PLAN OF CARE VITAL SIGNS MEDICATIONS Unknown Medications RESULTS No Results PROCEDURES No Known procedures IMMUNIZATIONS No Known Immunizations
--- OUTSIDE RECORDS SUMMARY | 2017-10-05 15:51 | XMS REPORT ---
Author Author VALERIE ZAVALA [facility] Address [address] [place] [address] Care Team Providers Care Budget Technician Name Role Phone VALERIE ZAVALA Unavailable PROBLEMS Type Condition ICD9-CM Code [id number] Code Onset Dates Condition Status SNOMED Code Problem Insomnia, unspecified type G47.00 Active 720114671 Problem Post-traumatic stress disorder, chronic F43.12 Active 39344920 Problem Pulmonary emphysema, unspecified emphysema type J43.9 Active 24383353 Problem Panic attacks F41.0 Active 451250118 Problem UTI symptoms R39.9 Active 60753398 Problem Other emphysema J43.8 Active 97648049 Problem Pain in right knee M25.561 Active 83159667 Problem Hypokalemia E87.6 Active 424549860 Problem Essential hypertension I10 Active 23744642 Problem Gastroesophageal reflux disease without esophagitis K21.9 Active 940034616 Problem Anxiety F41.9 Active 12198433 Problem Neuropathy G62.9 Active 985988634 Problem Back pain M54.9 Active 562183970 Problem Chronic pain G89.29 Active 60414637 Problem Right low back pain, with sciatica presence unspecified M54.5 Active 056874492 Problem Right foot pain M79.671 Active 23853114 Problem Tobacco abuse Z72.0 Active 03575707 Problem Weight decrease R63.4 Active 468222306 Problem Bone pain M89.8X9 Active 53660333 Problem Right upper quadrant abdominal pain R10.11 Active 894991951 Problem Generalized anxiety disorder F41.1 Active 72041373 Problem Depression, unspecified depression type F32.9 Active 30991734 Problem Weight loss R63.4 Active 561635728 ALLERGIES No Information SOCIAL HISTORY Never Assessed [...]
--- OUTSIDE RECORDS SUMMARY | 2017-10-05 15:51 | XMS REPORT ---
Author Author VALERIE ZAVALA [facility] Address [address] [place] [address] Care Team Providers Care Restaurant Worker Name Role Phone VALERIE ZAVALA Unavailable PROBLEMS Type Condition ICD9-CM Code [id number] Code Onset Dates Condition Status SNOMED Code Problem Insomnia, unspecified type G47.00 Active 619320238 Problem Post-traumatic stress disorder, chronic F43.12 Active 17615419 Problem Pulmonary emphysema, unspecified emphysema type J43.9 Active 20913102 Problem Panic attacks F41.0 Active 260182586 Problem UTI symptoms R39.9 Active 08637505 Problem Other emphysema J43.8 Active 08034435 Problem Pain in right knee M25.561 Active 57346486 Problem Hypokalemia E87.6 Active 545978848 Problem Essential hypertension I10 Active 40928329 Problem Gastroesophageal reflux disease without esophagitis K21.9 Active 266549925 Problem Anxiety F41.9 Active 49381984 Problem Neuropathy G62.9 Active 367883187 Problem Back pain M54.9 Active 895979268 Problem Chronic pain G89.29 Active 14150708 Problem Right low back pain, with sciatica presence unspecified M54.5 Active 058771271 Problem Right foot pain M79.671 Active 55940241 Problem Tobacco abuse Z72.0 Active 10726963 Problem Weight decrease R63.4 Active 125935888 Problem Bone pain M89.8X9 Active 77770980 Problem Right upper quadrant abdominal pain R10.11 Active 648358066 Problem Generalized anxiety disorder F41.1 Active 86998866 Problem Depression, unspecified depression type F32.9 Active 71425307 Problem Weight loss R63.4 Active [id number] ALLERGIES No Information SOCIAL HISTORY Never Assessed [...]
--- OUTSIDE RECORDS SUMMARY | 2017-10-05 15:52 | XMS REPORT ---
Author Author VALERIE ZAVALA [facility] Address [address] [place] [address] Care Team Providers Care Registered Nurse Bone Marrow Transplant Name Role Phone VALERIE ZAVALA Unavailable PROBLEMS Type Condition ICD9-CM Code [id number] Code Onset Dates Condition Status SNOMED Code Problem Weight loss R63.4 Active 607554363 Problem Pulmonary emphysema, unspecified emphysema type J43.9 Active 40946242 Problem Insomnia, unspecified type G47.00 Active 675974974 Problem Other emphysema J43.8 Active 41351800 Problem Pain in right knee M25.561 Active 35099056 Problem Anxiety F41.9 Active 78385129 Problem Hypokalemia E87.6 Active 731751416 Problem Generalized anxiety disorder F41.1 Active 55365222 Problem Gastroesophageal reflux disease without esophagitis K21.9 Active 766300376 Problem Post-traumatic stress disorder, chronic F43.12 Active 80501493 Problem Neuropathy G62.9 Active 756748992 Problem Essential hypertension I10 Active 87327815 Problem Right foot pain M79.671 Active 70203917 Problem Back pain M54.9 Active 026765971 Problem UTI symptoms R39.9 Active 60883113 Problem Right low back pain, with sciatica presence unspecified M54.5 Active 567699424 Problem Depression, unspecified depression type F32.9 Active 77219260 Problem Tobacco abuse Z72.0 Active 57872936 Problem Chronic pain G89.29 Active 58074734 Problem Weight decrease R63.4 Active 221239420 Problem Bone pain M89.8X9 Active 70274319 Problem Right upper quadrant abdominal pain R10.11 Active [id number] ALLERGIES No Information SOCIAL HISTORY Never Assessed PLAN OF CARE VITAL SIGNS MEDICATIONS Unknown [...]
--- OUTSIDE RECORDS SUMMARY | 2017-10-05 15:52 | XMS REPORT ---
Author Author VALERIE ZAVALA Organization [facility] Address [address] [place] [address] Care Team Providers Care Pollution Control Chemist Name Role Phone VALERIE ZAVALA Unavailable PROBLEMS Type Condition ICD9-CM Code [id number] Code Onset Dates Condition Status SNOMED Code Problem Weight loss R63.4 Active 215026116 Problem Pulmonary emphysema, unspecified emphysema type J43.9 Active 04894647 Problem Insomnia, unspecified type G47.00 Active 206735290 Problem Other emphysema J43.8 Active 21339144 Problem Pain in right knee M25.561 Active 84401960 Problem Anxiety F41.9 Active 89869585 Problem Hypokalemia E87.6 Active 439402620 Problem Generalized anxiety disorder F41.1 Active 12944132 Problem Gastroesophageal reflux disease without esophagitis K21.9 Active 031012741 Problem Post-traumatic stress disorder, chronic F43.12 Active 29050153 Problem Neuropathy G62.9 Active 068377557 Problem Essential hypertension I10 Active 40152185 Problem Right foot pain M79.671 Active 66134401 Problem Back pain M54.9 Active 786423856 Problem UTI symptoms R39.9 Active 49383525 Problem Right low back pain, with sciatica presence unspecified M54.5 Active 043041582 Problem Depression, unspecified depression type F32.9 Active 58783254 Problem Tobacco abuse Z72.0 Active 38589618 Problem Chronic pain G89.29 Active 36573644 Problem Weight decrease R63.4 Active 860900250 Problem Bone pain M89.8X9 Active 29190424 Problem Right upper quadrant abdominal pain R10.11 Active [id number] ALLERGIES Unknown Allergies SOCIAL HISTORY No smoking Hx information available PLAN OF CARE VITAL SIGNS MEDICATIONS Unknown Medications RESULTS No Results PROCEDURES No Known procedures IMMUNIZATIONS No Known Immunizations
--- OUTSIDE RECORDS SUMMARY | 2017-10-05 15:54 | XMS REPORT ---
Author Author VALERIE ZAVALA [facility] Address [address] [place] [address] Care Team Providers Care Technical Support Analyst Name Role Phone VALERIE ZAVALA Unavailable PROBLEMS Type Condition ICD9-CM Code [id number]-BB Code Onset Dates Condition Status SNOMED Code Problem Insomnia, unspecified type G47.00 Active 717239811 Problem Post-traumatic stress disorder, chronic F43.12 Active 39415995 Problem Pulmonary emphysema, unspecified emphysema type J43.9 Active 61560309 Problem Panic attacks F41.0 Active 898044638 Problem UTI symptoms R39.9 Active 62580895 Problem Other emphysema J43.8 Active 88148763 Problem Pain in right knee M25.561 Active 70085672 Problem Hypokalemia E87.6 Active 712262226 Problem Essential hypertension I10 Active 86880302 Problem Gastroesophageal reflux disease without esophagitis K21.9 Active 284490408 Problem Anxiety F41.9 Active 36081516 Problem Neuropathy G62.9 Active 278077876 Problem Back pain M54.9 Active 046802278 Problem Chronic pain G89.29 Active 06487925 Problem Right low back pain, with sciatica presence unspecified M54.5 Active 251236890 Problem Right foot pain M79.671 Active 35686639 Problem Tobacco abuse Z72.0 Active 65449766 Problem Weight decrease R63.4 Active 177597789 Problem Bone pain M89.8X9 Active 62199935 Problem Right upper quadrant abdominal pain R10.11 Active 063370603 Problem Generalized anxiety disorder F41.1 Active 76623836 Problem Depression, unspecified depression type F32.9 Active 22821458 Problem Weight loss R63.4 Active 194426459 ALLERGIES No Information SOCIAL HISTORY Never Assessed [...]
--- OUTSIDE RECORDS SUMMARY | 2017-10-05 15:54 | XMS REPORT ---
Author Author VALERIE ZAVALA Organization [facility] Address [address] [place] [address] Care Team Providers Care Chart Changer Name Role Phone VALERIE ZAVALA Unavailable PROBLEMS Type Condition ICD9-CM Code FOV78-QN Code Onset Dates Condition Status SNOMED Code Problem Generalized anxiety disorder F41.1 Active 36071128 Problem Hypokalemia E87.6 Active 394449330 Problem Pulmonary emphysema, unspecified emphysema type J43.9 Active 75853064 Problem Right low back pain, with sciatica presence unspecified M54.5 Active 897755805 Problem Post-traumatic stress disorder, chronic F43.12 Active 94735779 Problem Pain in right knee M25.561 Active 39877587 Problem Gastroesophageal reflux disease without esophagitis K21.9 Active 492116821 Problem Neuropathy G62.9 Active 460052845 Problem Essential hypertension I10 Active 47657190 Problem Generalized abdominal pain R10.84 Active 840432285 Problem Kidney stones N20.0 Active 53307889 Problem Back pain M54.9 Active 967318762 Problem Right foot pain M79.671 Active 92316546 Problem UTI symptoms R39.9 Active 86977119 Problem Other emphysema J43.8 Active 84258175 Problem Anxiety F41.9 Active 07051177 Problem Renal calculus, right N20.0 Active 99965770 Problem Panic attacks F41.0 Active 255179163 Problem Depression, unspecified depression type F32.9 Active 92943120 Problem Weight decrease R63.4 Active 580698953 Problem Chronic pain G89.29 Active 39346961 Problem Bone pain M89.8X9 Active 93167448 Problem Weight loss R63.4 Active 730530131 Problem Insomnia, unspecified type G47.00 Active 242885411 Problem Tobacco abuse Z72.0 Active 23004006 Problem Right upper quadrant abdominal pain R10.11 Active 999969888 ALLERGIES No Information ENCOUNTERS Encounter Location Date Diagnosis [facility] [address] [address] September, [facility] [id number] [place] [address] 62997- 6606 Aug, Acute pyelonephritis N10 and Medicare welcome exam Z00.00 [facility] [id number] [place] [address] 72057 -0520 Aug, Dysuria R30.0 and Acute pyelonephritis N10 [facility] [id number] [place] [address] 98761- 8018 Aug, [facility] [id number] [place] [address] 64288- 7742 Aug, [facility] [id number] [place] [address] 78632- 4999 Aug, [facility] [id number] [place] [address] 26304- 0827 Aug, [facility] [id number] [place] [address] 56948- 5812 Jul, [facility] [id number] [place] [address] 50134- 8749 Jul, Renal calculus, right N20.0 and Medicare welcome exam Z00.00 [facility] [id number] [place] [address] 19452 -6198 Jul, Dysuria R30.0 and Renal calculus, right N20.0 [facility] [id number] [place] [address] 92778- 7011 Jul, Medicare welcome exam Z00.00 [facility] [id number] [place] [address] 06814- 4873 Jun, Gastroesophageal reflux disease without esophagitis K21.9 and Generalized abdominal pain R10.84 [facility] [id number] [place] [address] 42542- 5966 Jun, Medicare welcome exam Z00.00 [facility] [id number] [place] [address] 80014- 7987 Jun, [facility] [id number] [place] [address] 36973- 8375 Jun, Medicare welcome exam Z00.00 and Encounter for screening mammogram for malignant neoplasm of breast Z12.31 [facility] [id number] [place] [address] 95944- 3590 Jun, Chronic pain G89.29 [facility] [id number] [place] [address] 70537- 1559 May, [facility] [address] 40660- 2172 May, Pelvic pain R10.2 [facility] [address] 18657- 3190 May, Pelvic pain R10.2 [facility] [id number] [place] [address] 08811 -1551 May, Renal calculus, right N20.0 [facility] [id number] [place] [address] 16236- 4591 May, Hematuria, unspecified type R31.9 and Nephrolithiasis N20.0 [facility] [id number] [place] [address] 65962 -3832 May, Dysuria R30.0 and Nephrolithiasis N20.0 [facility] [id number] [place] [address] 77716- 7685 May, [facility] [address] 94708 -7591 May, Abdominal pain R10.9 and Kidney stone N20.0 [facility] [address] 93140- 5853 May, [facility] [address], [place] [address] 4271 May, Chronic pain G89.29 and Panic attacks F41.0 [facility] [address], [place] [address] 2589 May, Urinary tract infection without hematuria, site unspecified N39.0 [facility] [address] [place] [address] 57216- 5818 Apr, Right lower quadrant abdominal pain R10.31 and Abnormal serum lipase level R74.8 [facility] [address], [place] [address] Apr, Recurrent urinary tract infection N39.0 [facility] [address] [place] [address] 16480- 6851 Apr, UTI symptoms R39.9 ; Recurrent urinary tract infection N39.0 and Pelvic pain R10.2 [facility] [address] [place] [address] 09011- 8257 Apr, Chronic pain G89.29 and Panic attacks F41.0 [facility] [address], [place] [address] 6324 Apr, Dysuria R30.0 [facility] [address], [place] [address] 6232 Apr, [facility] [address] [place] [address] 34255- 2851 Apr, Dysuria R30.0 and Urinary tract infection without hematuria , site unspecified N39.0 [facility] [address], [place] [address] 3097 Mar, UTI symptoms R39.9 [facility] [address], [place] [address]- 1846 Mar, [facility] [address] [place] [address] 21495- 0933 Mar, Panic attacks F41.0 and Chronic pain G89.29 [facility] [id number] [place] [address] 63029- 1234 Mar, [facility] [address] 85093- 3771 Mar, Dysuria R30.0 [facility] [address] 22625- 7394 Mar, Dysuria R30.0 [facility] [address] 07014- 1088 Feb, Chronic pain G89.29 ; Shortness of breath R06.02 ; Weight loss R63.4 ; Encounter for immunization Z23 ; Bone pain M89.8X9 ; Right anterior knee pain M25.561 and Cough R05 [facility] [address] 58208- 6063 Feb, Shortness of breath R06.02 [facility] [address] 51155- 4795 Feb, [facility] [address] 22131- 9365 Feb, Panic attacks F41.0 and Chronic pain G89.29 [facility] [id number] [place] [address] 94172- 5166 Feb, [facility] [address] 65823- 9663 Feb, Panic attacks F41.0 ; Shortness of breath R06.02 and Encounter for immunization Z23 [facility] [address] 61971- 6263 Jan, [facility] [id number] [place] [address] 21258- 8484 Jan, Anxiety F41.9 and Chronic pain G89.29 [facility] [address] [place] [address]- 7788 Dec, Anxiety F41.9 and Chronic pain G89.29 [facility] [address] 64187- 7807 Nov, Chronic pain G89.29 [facility] [id number] [place] [address] 02248- 1855 Nov, Anxiety F41.9 [facility] [address] 40640- 5206 Nov, Chronic pain G89.29 ; Essential hypertension I10 and Other emphysema J43.8 [facility] [address] 01157- 2921 Oct, Anxiety F41.9 [facility] [address] 58701- 6267 Oct, [facility] [address] 70947- 0600 Oct, Chronic pain G89.29 [facility] [id number] [place] [address] 06277- 2109 September, Recurrent UTI N39.0 ; Neuropathy G62.9 and Anxiety F41.9 [facility] [id number] [place] [address] 00952- 9643 September, [facility] [id number] [place] [address] 04055- 1575 September, Chronic pain G89.29 [facility] [id number] [place] [address] 43154- 4268 September, [facility] [id number] [place] [address] 07068- 1767 Aug, Post-traumatic stress disorder, chronic F43.12 ; Chronic urinary tract infection N39.0 ; Gastroesophageal reflux disease without esophagitis K21.9 ; Chronic pain G89.29 ; Essential hypertension I10 and Tobacco abuse Z72.0 [facility] [address] [facility] [id number] [place] [address] Aug, [facility] [id number], [place] [address]- 0257 Aug, Chronic pain G89.29 [facility] [id number] [address] 8381 Aug, Insomnia, unspecified type G47.00 [facility] [address] [facility] [id number] [address] 6[address] Aug, [facility] [id number] [address]- 0069 24 Jul, 2016 Chronic pain G89.29 [facility] [address], [place] [address]- 3673 Jul, [facility] [address], [place] [address]- 9174 Jul, [facility] [address], [place] [address]- 7391 Jul, [facility] [id number] [address]- 1742 15 Jul, 2016 Recurrent UTI (urinary tract infection) N39.0 [facility] [address] [address]- 1281 14 Jul, 2016 [facility] [id number], [place] [address]- 5025 27 Jun, 2016 Chronic pain G89.29 [facility] [id number] [address]- 2546 17 Jun, 2016 [facility] [id number] [address]- 0626 13 Jun, 2016 [facility] [id number], [place] [address]- 5427 30 May, 2016 Chronic pain G89.29 [facility] [address] [place] [address] 62824- 1736 May, Weight loss R63.4 and Shortness of breath R06.02 [facility] [id number] [place] [address] 53027- 0975 May, Chronic pain G89.29 ; Weight loss R63.4 and Tobacco abuse Z72.0 [facility] [id number] [place] [address] 13492- 8229 May, [facility] [id number] [place] [address] 87864- 3633 May, Hypoxia R09.02 [facility] [id number] [place] [address] 70257- 6107 May, [facility] [id number] [place] [address] 33386- 8586 May, Pulmonary emphysema, unspecified emphysema type J43.9 [facility] [id number] [place] [address] 87382 -5495 May, [facility] [id number] [place] [address] 38610- 4928 May, [facility] [id number] [place] [address] 41551- 6778 May, [facility] [address] [place] [address] 44656- 7982 May, Chronic pain G89.29 ; Encounter for immunization Z23 ; Right anterior knee pain M25.561 and Cough R05 [facility] [address] [place] [address] 24965- 6999 Apr, Chronic pain G89.29 [facility] [id number] [place] [address] 99544- 9537 Apr, [facility] [id number] [place] [address] 21669- 3008 Apr, Generalized anxiety disorder F41.1 and Depression, unspecified depression type F32.9 [facility] [id number] [address]- 4916 Apr, Chronic pain G89.29 ; Hypokalemia E87.6 and Insomnia, unspecified type G47.00 [facility] [address] [facility] [id number] [place] [address] 2546 Apr, [facility] [id number] [place] [address], [place] [address] 2546 Apr, Chronic pain G89.29 [facility] [id number] [place] [address], [place] [address] 2546 Apr, [facility] [id number] [place] [address], [place] [address]- 3076 Mar, [facility] [id number] [place] [address], [place] [address]- 3291 Mar, Insomnia, unspecified type G47.00 [facility] [id number] [address]- 254 Mar, Chronic pain G89.29 [facility] [id number] [place] [address], [place] [address] 2546 Mar, [facility] [id number], [place] [address] 2544 Feb, [facility] [address], [place] [address] 2546 Feb, [facility] [address] [facility] [id number], [place] [address] 2546 Feb, [facility] [id number] [place] [address] 39418 2546 Feb, [facility] [address] [facility] [id number] [place] [address]- 2546 Feb, [facility] [id number], [place] [address]- 3456 Jan, [facility] [address], [place] [address]- 3338 26 Jan, 2015 [facility] [id number] [place] [address] 28486- 6320 20 Jan, 2016 [facility] [address] [place] [address] 67149- 7706 13 Jan, 2016 [facility] [id number] [place] [address] 38658- 7675 12 Jan, 2016 [facility] [address] [place] [address] 39626- 2471 07 Jan, 2016 Chronic pain G89.29 [facility] [id number] [place] [address] 95342- 4513 Jan, Chronic pain G89.29 and Fibromyalgia M79.7 [facility] [id number] [place] [address] 86664- 8254 Dec, Depression, unspecified depression type F32.9 and Generalized anxiety disorder 300.02 [facility] [address] [place] [address] 65006- 8842 Dec, Dysthymia F34.1 ; Insomnia, unspecified type G47.00 and Chronic pain G89.29 [facility] [address], [place] [address]- 2172 Dec, Chronic pain G89.29 [facility] [id number] [place] [address] 08525- 8952 Dec, Insomnia, unspecified type G47.00 [facility] [address] [place] [address] 45700- 8006 Dec, Fibromyalgia M79.7 and Chronic pain G89.29 [facility] [address], [place] [address]- 6175 Dec, [facility] [id number] [place] [address] 19313- 5968 Dec, [facility] [address], [place] [address]- 7112 Dec, [facility] [address] [place] [address] 18825- 8242 Dec, [facility] [address], [place] [address]- 0699 Dec, Chronic pain G89.29 [facility] [id number] [place] [address] 33079- 0069 Dec, [facility] [id number] [place] [address] 35268- 4630 Dec, [facility] [id number] [place] [address] 45142- 2683 Dec, [facility] [id number] [place] [address] 61890- 1783 Dec, Chronic pain G89.29 and Dysthymia F34.1 [facility] [id number] [place] [address] 22057- 3168 Nov, [facility] [id number] [place] [address] 40627- 2771 Nov, Hypokalemia E87.6 and Chronic pain G89.29 [facility] [address] [place] [address] 62354- 9225 Nov, Back pain M54.9 and Pain in right knee M25.561 [facility] [address], [place] [address]- 9412 Nov, [facility] [id number] [place] [address] 12879- 7453 Nov, Chronic pain G89.29 [facility] [address], [place] [address]- 2654 Nov, Chronic pain G89.29 ; Weight loss R63.4 ; Bone pain M89.8X9 and Insomnia, unspecified type G47.00 [facility] [address], [place] [address]- 7067 Nov, Chronic pain G89.29 [facility] [id number] [place] [address] 76938 2546 Nov, Chronic pain G89.29 [facility] [id number] [place] [address] 40378- 9618 Oct, Chronic pain G89.29 [facility] [id number] [place] [address] 58711 2546 Oct, UTI symptoms R39.9 [facility] [id number] [place] [address] 22362- 0478 Oct, Chronic pain G89.29 [facility] [id number] [place] [address] 17096- 4427 Oct, Chronic pain G89.29 [facility] [id number] [place] [address] 94423 2540 Oct, Chronic pain G89.29 [facility] [id number] [place] [address] 42013- 6324 Oct, Right upper quadrant abdominal pain R10.11 [facility] [id number] [place] [address] 56117- 6048 Oct, Chronic pain G89.29 [facility] [id number] [place] [address] 75266 254 Oct, [facility] [id number] [place] [address] 79946- 8284 September, Chronic pain G89.29 [facility] [id number] [place] [address] 48345- 1177 September, Dysuria R30.0 and Urinary tract infection without hematuria , site unspecified N39.0 [facility] [id number] [place] [address] 19177- 6555 September, [facility] [id number] [place] [address] 48551- 7296 September, Dysuria R30.0 [facility] [id number] [place] [address] 79172- 9915 September, Chronic pain G89.29 [facility] [id number] [place] [address] 19480- 6533 September, Chronic pain G89.29 and Essential hypertension I10 [facility] [id number] [place] [address] 54543- 1974 September, [facility] [id number] [place] [address] 35513- 3002 September, [facility] [id number] [place] [address] 17781- 7922 September, [facility] [id number] [place] [address] 51038- 3916 Aug, UTI symptoms R39.9 [facility] [id number] [place] [address] 50315- 6468 Aug, Dysuria R30.0 [facility] [id number] [place] [address] 60041- 3780 Aug, [facility] [id number] [place] [address] 14852- 1206 Aug, [facility] [id number] [place] [address] 77509- 9881 Aug, [facility] [address] [place] [address] 89889- 0056 Aug, Chronic pain G89.29 [facility] [id number] [place] [address] 62158- 5636 Aug, Dysthymia F34.1 [facility] [id number] [place] [address] 61192- 2555 Aug, Conjunctivitis, unspecified conjunctivitis type, unspecified laterality H10.9 [facility] [id number] [place] [address] 48218- 7601 31 Jul, 2015 Chronic pain G89.29 ; Back pain M54.9 ; Tobacco abuse Z72.0 and Weight decrease R63.4 [facility] [id number] [place] [address] 95884- 6396 30 Jul, 2015 [facility] [id number] [place] [address] 19175- 4780 30 Jul, 2015 [facility] [id number] [place] [address] 87618- 5444 24 Jul, 2015 Chronic pain G89.29 [facility] [id number] [place] [address] 19875- 8252 22 Jul, 2015 [facility] [id number] [place] [address] 78735- 6982 Jul, [facility] [id number] [place] [address] 89338- 0523 18 Jul, 2015 [facility] [id number] [place] [address] 80470- 1677 17 Jul, 2015 [facility] [id number] [place] [address] 22686- 0904 17 Jul, 2015 Chronic pain G89.29 [facility] [id number] [place] [address] 11632- 3964 16 Jul, 2015 Chronic pain G89.29 [facility] [id number] [place] [address] 36998- 4222 15 Jul, 2015 [facility] [id number] [place] [address] 11700- 7703 10 Jul, 2015 [facility] [id number] [place] [address] 09853- 6550 07 Jul, 2015 [facility] [id number] [place] [address] 25435- 4281 Jul, [facility] [id number] [place] [address] 87391- 8993 Jun, [facility] [id number] [place] [address] 87811- 0904 Jun, Depression, unspecified depression type F32.9 [facility] [id number] [place] [address] 97228- 2219 Jun, Pain in right knee M25.561 [facility] [id number] [place] [address] 30632- 8422 Jun, Chronic pain G89.29 ; Back pain M54.9 ; Bone pain M89.8X9 and Weight loss R63.4 [facility] [id number] [place] [address] 64506- 1534 Jun, [facility] [id number] [place] [address] 68617- 5456 May, [facility] [id number] [place] [address] 29257- 7979 May, UTI symptoms R39.9 ; Pain in right knee M25.561 ; Right low back pain, with sciatica presence unspecified M54.5 ; Right foot pain M79.671 ; Hypokalemia E87.6 and Screening, lipid Z13.220 [facility] [id number] [place] [address] 79983- 1120 May, [facility] [id number] [place] [address] 91253- 1771 May, [facility] [id number] [place] [address] 25027- 0767 Mar, [facility] [id number] [place] [address] 31252- 7332 Mar, [facility] [address] [id number] [place] [address] 30724- 5286 Mar, Hypokalemia E87.6 [facility] [id number] [place] [address] 08480- 8779 Mar, Pain in right leg M79.604 ; Encounter for immunization Z23 ; Pain in right knee M25.561 and Hypokalemia E87.6 [facility] [id number] [place] [address] 17529- 8886 Jan, [facility] [id number] [place] [address] 14162- 2126 Jan, [facility] [id number] [place] [address] 21841- 4531 Jan, Abdominal pain, generalized 789.07 [facility] [id number] [place] [address] 70112- 0844 Jan, Abdominal pain, generalized 789.07 [facility] [id number] [place] [address] 34761- 0167 Dec, [facility] [id number] [place] [address] 05510- 8242 Dec, [facility] [id number] [place] [address] 22076- 6517 Dec, [facility] [id number] [place] [address] 71415- 3586 Nov, Hallux valgus 735.0 and Hammertoe 735.4 [facility] [id number] [place] [address] 49283- 7225 Nov, [facility] [id number] [place] [address] 16646- 4475 Nov, Hallux valgus 735.0 and Hammer toe 735.4 [facility] [id number] [place] [address] 44669- 7835 Oct, [facility] [id number] [place] [address] 05516- 2942 Oct, [facility] [address] [id number] [address] 8600 Oct, Pre-op evaluation V72.84 [facility] [id number] [address] 7658 Oct, [facility] [id number], [place] [address]- 2872 Oct, [facility] [id number] 5393 September, [facility] [id number], [place] [address]- 9318 September, [facility] [id number], [place] [address]- 5808 September, Hallux valgus (acquired) 735.0 and Other hammer toe ( acquired) 735.4 [facility] [id number], [place] [address]- 0655 Aug, [facility] [id number], [place] [address]- 1226 Aug, [facility] [id number], [place] [address]- 4842 Jul, [facility] [address] [id number] [address] 8279 Jul, [facility] [id number], [place] [address]- 2515 Jul, [facility] [address] [id number] [address]- 0342 Jul, [facility] [address] [id number], [place] [address]- 7553 Jul, [facility] [address] [id number] 3405 Jul, [facility] [id number] [place] [address]- 6622 Jul, [facility] [place] [facility] [address] [id number] [place] [address]- 7975 Jul, [facility] [place] [facility] [address] [id number] [place] [address]- 4467 Jun, 2014 [facility] [place] [facility] [address] [id number] [place] [address]- 9789 Jun, 2014 [facility] [place] [facility] [address] [id number] [place] [address]- 3243 Jun, 2014 [facility] [place] [facility] [address] [id number] [place] [address]- 8504 Jun, 2014 [facility] [place] [facility] [address] [facility] [id number] [place] [address]- 4752 Jun, 2014 [facility] [place] [facility] [address] [id number] [place] [address]- 4404 Jun, [facility] [place] [facility] [address] [id number] [place] [address]- 8657 Jun, [facility] [place] [facility] [address] [facility] [id number] [place] [address]- 6535 Jun, [facility] [place] [facility] [address] [facility] [id number] [place] [address]- 0569 Jun, [facility] [place] [facility] [address] [facility] [id number] [place] [address]- 6639 Jun, [facility] [place] [facility] [address] [facility] [id number] [place] [address]- 2024 May, [facility] [place] [facility] [address] [id number] [place] [address]- 3219 May, [facility] [place] [facility] [address] [facility] [id number] [place] [address]- 9720 May, [facility] [place] [facility] [address] [facility] [id number] [place] [address]- 7906 May, [facility] [place] [facility] [address] [id number] [place] [address]- 0325 May, [facility] [place] [facility] [address] [id number] [place] [address]- 9705 May, [facility] [place] [facility] [address] [id number] [place] [address]- 7699 May, [facility] [place] [facility] [address] [id number] [place] [address]- 3133 May, [facility] [place] [facility] [address] [id number] [place] [address]- 8809 May, [facility] [place] [facility] [address] [id number] [place] [address]- 9689 May, [facility] [place] [facility] [address] [id number] [place] [address]- 3529 May, [facility] [place] [facility] [address] [id number] [place] [address]- 6504 May, [facility] [place] [facility] [address] [id number] [place] [address]- 7209 May, [facility] [place] [facility] [address] [id number] [place] [address]- 1920 May, [facility] [place] [facility] [address] [id number] [place] [address]- 1535 May, [facility] [place] [facility] [address] [id number], [place] [address]- 7852 May, [facility] [place] [facility] [address] [id number] [place] [address]- 7106 May, [facility] [place] [facility] [address] [id number] [place] [address]- 8318 May, [facility] [place] [facility] [address] [id number] [place] [address]- 8607 Apr, [facility] [place] [facility] [address] [id number] [place] [address]- 0229 Apr, [facility] [address] [id number] [place] [address]- 0750 Apr, [facility] [place] [facility] [address] [id number] [place] 6714 Apr, [facility] [address] [id number] [place] [address]- 3318 Apr, [facility] [place] [facility] [address] [id number] [place] [address]- 3204 Apr, [facility] [place] [facility] [address] [id number] [place] [address]- 5440 Apr, [facility] [place] [facility] [address] [id number] [place] [address]- 7404 Apr, [facility] [place] [facility] [address] [id number] [place] [address]- 0618 Apr, [facility] [place] [facility] [address] [id number] [place] [address]- 0259 Mar, [facility] [place] [facility] [address] [id number] [place] [address]- 2746 Mar, [facility] [place] [facility] [address] [facility] [id number] [place] [address]- 8478 Mar, [facility] [place] [facility] [address] [id number] [place] [address]- 1981 Mar, [facility] [place] [facility] [address] [id number] [place] [address]- 7382 Mar, [facility] [place] [facility] [address] [id number] [place] [address]- 5930 Feb, [facility] [place] [facility] [address] [facility] [id number] [place] [address]- 9337 Feb, [facility] [place] [facility] [address] [id number] [place] [address]- 8921 Feb, [facility] [place] [facility] [address] [id number] [place] [address]- 6297 Feb, 2013 [facility] [place] [facility] [address] [id number] [place] 2214 Feb, 2013 [facility] [place] [facility] [address] [id number] [place] [address]- 1132 Feb, 2013 [facility] [place] [facility] [address] [id number] [place] [address]- 3656 Feb, 2013 [facility] [place] [facility] [address] [id number] [place] 6783 Feb, 2013 [facility] [place] [facility] [address] [id number] [place] [address]- 7169 Feb, 2013 [facility] [place] [facility] [address] [id number] [place] [address]- 2239 Feb, 2013 [facility] [place] [facility] [address] [id number], [place] [address]- 3216 Feb, 2013 [facility] [place] [facility] [address] [id number] [place] [address]- 4807 Feb, 2013 [facility] [place] [facility] [address] [id number], [place] [address]- 3873 Feb, 2013 [facility] [place] [facility] [address] [id number], [place] [address]- 4341 Feb, 2013 [facility] [place] [facility] [address] [id number], [place] [address]- 6435 Feb, 2013 [facility] [place] [facility] [address] [id number], [place] [address]- 6507 Feb, [facility] [place] [facility] [address] [id number] 5881 Jan, 2013 [facility] [place] [facility] [address] [id number], [place] [address]- 6997 Jan, 2013 [facility] [place] [facility] [address] [id number], [place] [address]- 8504 20 Jan, 2013 [facility] [place] [facility] [address] [id number] [place] [address]- 1306 19 Jan, 2013 [facility] [place] [facility] [address] [id number] [place] [address]- 6616 Jan, [facility] [place] [facility] [address] [id number] [place] [address]- 5926 Jan, [facility] [place] [facility] [address] [id number] [place] [address]- 2462 Jan, [facility] [place] [facility] [address] [id number] [place] [address]- 9525 Jan, [facility] [place] [facility] [address] [id number] [place] [address]- 9372 Dec, [facility] [place] [facility] [address] [id number] [place] [address]- 7716 Dec, [facility] [place] [facility] [address] [id number] [place] [address]- 1888 Nov, [facility] [place] [facility] [address] [id number] [place] [address]- 0571 Nov, [facility] [place] [facility] [address] [id number] [place] [address]- 6388 Nov, [facility] [place] [facility] [address] [id number] [place] [address]- 7953 Nov, [facility] [place] [facility] [address] [id number] [place] [address]- 9296 Nov, [facility] [place] [facility] [address] [id number] [place] [address]- 1266 Nov, [facility] [place] [facility] [address] [id number] [place] [address]- 1013 Nov, [facility] [place] [facility] [address] [id number] [place] [address]- 6474 Nov, [facility] [place] [facility] [address] [id number] [place] [address]- 2771 Nov, [facility] [place] [facility] [address] [id number] [place] [address]- 4404 Oct, [facility] [place] [facility] [address] [id number] [place] [address]- 9036 Oct, [facility] [place] [facility] [address] [id number] [place] [address]- 8187 Oct, [facility] [place] [facility] [address] [id number] [place] [address]- 8069 Oct, [facility] [place] [facility] [address] [id number] [place] [address]- 7712 Oct, [facility] [place] [facility] [address] [id number] [place] [address]- 2250 Oct, [facility] [place] [facility] [address] [id number] [place] [address]- 6870 September, [facility] [place] [facility] [address] [id number] [place] [address]- 1611 September, [facility] [place] [facility] [address] [id number] [place] [address]- 3009 September, [facility] [place] [facility] [address] [id number] [place] 5555 September, [facility] [place] [facility] [address] [id number] [place] [address]- 6256 September, [facility] [place] [facility] [address] [id number] [place] [address]- 5284 September, [facility] [place] [facility] [address] [id number] [place] [address]- 4586 September, [facility] [place] [facility] [address] [id number] [place] [address]- 9916 September, [facility] [place] [facility] [address] [id number] [place] [address]- 9132 September, [facility] [place] [facility] [address] [id number] [place] [address]- 4605 September, [facility] [place] [facility] [address] [id number] [place] [address]- 1353 September, [facility] [place] [facility] [address] [id number] [place] [address]- 5552 September, [facility] [place] [facility] [address] [id number] [place] [address]- 0577 September, [facility] [place] [facility] [address] [id number] [place] [address]- 7955 September, [facility] [place] [facility] [address] [id number] [place] [address]- 4010 September, [facility] [place] [facility] [address] [id number] [place] [address]- 2579 September, [facility] [place] [facility] [address] [id number] [place] [address]- 0587 September, [facility] [place] [facility] [address] [id number] [place] [address]- 1930 September, [facility] [place] [facility] [address] [id number] [place] [address]- 9535 September, [facility] [place] [facility] [address] [id number] [place] [address]- 6936 September, [facility] [place] [facility] [address] [id number] [place] [address]- 2489 Aug, [facility] [place] [facility] [address] [id number] [place] [address]- 3434 Aug, [facility] [place] [facility] [address] [id number] [place] [address]- 5721 Aug, [facility] [place] [facility] [address] [id number] [place] [address]- 3199 Aug, [facility] [place] [facility] [address] [id number] [place] [address]- 4592 18 Aug, 2013 [facility] [place] [facility] [address] [id number] [place] [address]- 8095 18 Aug, 2013 [facility] [place] [facility] [address] [id number] [place] [address]- 8009 16 Aug, 2013 [facility] [place] [facility] [address] [id number] [place] [address]- 0311 16 Aug, 2013 [facility] [place] [facility] [address] [id number] [place] [address]- 8944 15 Aug, 2013 [facility] [place] [facility] [address] [id number] [place] [address]- 4243 15 Aug, 2013 [facility] [place] [facility] [address] [id number] [place] [address]- 6875 14 Aug, 2013 [facility] [place] [facility] [address] [id number] [place] [address]- 8793 05 Aug, 2013 [facility] [place] [facility] [address] [id number] [place] [address]- 7292 05 Aug, 2013 [facility] [place] [facility] [address] [id number] [place] [address]- 9336 03 Aug, 2013 [facility] [place] [facility] [address] [id number] [place] [address]- 6409 03 Aug, 2013 [facility] [place] [facility] [address] [id number] [place] [address]- 6314 31 Jul, 2013 [facility] [place] [facility] [address] [id number] [place] [address]- 0544 31 Jul, 2013 [facility] [place] [facility] [address] [id number] [place] [address]- 2466 27 Jul, 2013 [facility] [place] [facility] [address] [id number] [place] [address]- 4250 27 Jul, 2013 [facility] [place] [facility] [address] [id number] [place] [address]- 6621 20 Jul, 2013 [facility] [place] [facility] [address] [id number] [place] [address]- 0848 Jul, [facility] [place] [facility] [address] [id number] [place] [address]- 1559 Jul, [facility] [place] [facility] [address] [id number] [place] [address]- 2286 Jul, [facility] [place] [facility] [address] [id number] [place] [address]- 9291 Jul, [facility] [place] [facility] [address] [id number] [place] [address]- 0798 Jul, [facility] [place] [facility] [address] [id number] [place] [address]- 5324 Jul, [facility] [place] [facility] [address] [id number] [place] [address]- 0053 Jul, [facility] [place] [facility] [address] [id number] [place] [address]- 7268 Jul, [facility] [place] [facility] [address] [id number] [place] [address]- 5201 Jul, [facility] [place] [facility] [address] [id number] [place] [address]- 6379 Jul, [facility] [place] [facility] [address] [id number] [place] [address]- 2900 Jun, [facility] [place] [facility] [address] [id number] [place] [address]- 0157 Jun, [facility] [place] [facility] [address] [id number] [place] [address]- 5264 Jun, [facility] [place] [facility] [address] [id number] [place] [address]- 1209 Jun, [facility] [place] [facility] [address] [id number] [place] [address]- 8843 Jun, [facility] [place] [facility] [address] [id number], [place] [address]- 1945 Jun, [facility] [address] [id number] [place] [address]- 4045 May, [facility] [place] [facility] [address] [id number] [place] [address]- 3845 May, [facility] [place] [facility] [address] [id number] [place] [address]- 3385 May, [facility] [place] [facility] [address] [id number] [place] [address]- 6824 May, [facility] [place] [facility] [address] [id number] [place] [address]- 8771 May, [facility] [place] [facility] [address] [id number] [place] [address]- 9977 May, [facility] [address] [id number] [place] [address]- 1932 May, [facility] [place] [facility] [address] [id number] [place] [address]- 5214 May, [facility] [place] [facility] [address] [id number] [place] [address]- 2330 May, [facility] [place] [facility] [address] [id number] [place] [address]- 3475 May, [facility] [place] [facility] [address] [id number] [place] [address]- 9889 May, [facility] [place] [facility] [address] [id number], [place] [address]- 0175 May, [facility] [place] [facility] [address] [id number] [place] [address]- 9383 May, [facility] [place] [facility] [address] [id number] [place] [address]- 3711 May, [facility] [place] [facility] [address] [id number] [place] [address]- 9730 May, [facility] [place] [facility] [address] [id number] [place] [address]- 6834 Apr, [facility] [place] [facility] [address] [id number] [place] [address]- 4306 Apr, [facility] [place] [facility] [address] [id number] [place] [address]- 0956 Apr, [facility] [place] [facility] [address] [id number] [place] [address]- 0673 Apr, [facility] [place] [facility] [address] [id number] [place] [address] Apr, [facility] [place] [facility] [address] [id number] [place] [address] Apr, [facility] [place] [facility] [address] [id number] [place] [address] Apr, [facility] [place] [facility] [address] [id number] [place] [address] Apr, [facility] [place] [facility] [address] [id number] [place] [address] Apr, [facility] [place] [facility] [address] [id number] [place] [address] Apr, [facility] [place] [facility] [address] [id number] [place] [address] Mar, [facility] [place] [facility] [address] [id number] [place] [address]105 Mar, [facility] [place] [facility] [address] [id number] [place] [address]689 Mar, [facility] [place] [facility] [address] [id number] [place] [address] Mar, [facility] [place] [facility] [address] [id number] [place] [address] Mar, [facility] [place] [facility] [address] [id number] [place] [address] 9[address] Mar, [facility] [place] [facility] [address] [id number] [place] [address] Mar, [facility] [place] [facility] [address] [id number], [place] [address] Mar, [facility] [place] [facility] [address] [id number] [place] [address] Mar, [facility] [place] [facility] [address] [id number], [place] [address] Mar, [facility] [place] [facility] [address] [id number] [place] [address] 1483 Mar, [facility] [place] [facility] [address] [id number], [place] [address]65 Mar, [facility] [place] [facility] [address] [id number], [place] [address] Mar, [facility] [place] [facility] [address] [id number], [place] [address] Mar, [facility] [place] [facility] [address] [id number], [place] [address] 18 Mar, 2013 [facility] [place] [facility] [address] [id number], [place] [address]- 1501 18 Mar, 2013 [facility] [place] [facility] [address] [id number], [place] [address]- [address] 14 Mar, 2013 [facility] [place] [facility] [address] [id number], [place] [address] 14 Mar, 2013 [facility] [place] [facility] [address] [id number], [place] [address] 12 Mar, 2013 [facility] [place] [facility] [address] [id number], [place] [address]- [address] 12 Mar, 2013 [facility] [place] [facility] [address] [id number], [place] [address] 4886 11 Mar, 2013 [facility] [place] [facility] [address] [id number] [place] [address] Mar, [facility] [place] [facility] [address] [id number] [place] [address] 3502 Mar, [facility] [place] [facility] [address] [id number] [place] [address] Feb, [facility] [place] [facility] [address] [id number] [place] [address]321 18 Feb, 2012 [facility] [place] [facility] [address] [id number] [place] [address] Feb, 2012 [facility] [place] [facility] [address] [id number] [place] [address] 16 Feb, 2013 [facility] [place] [facility] [address] [id number] [place] [address]276 15 Feb, 2013 [facility] [place] [facility] [address] [id number] [place] [address]494 Feb, [facility] [place] [facility] [address] [id number] [place] [address] 7153 09 Feb, 2013 [facility] [place] [facility] [address] [id number] [place] [address] 8520 Feb, [facility] [place] [facility] [address] [id number] [place] [address]- 4037 04 Feb, 2013 [facility] [place] [facility] [address] [id number] [place] [address]- 1355 03 Feb, 2013 [facility] [place] [facility] [address] [id number] [place] [address]- [address]64 30 Jan, 2012 [facility] [place] [facility] [address] [id number] [place] [address] 26 Sep, 2012 [facility] [place] [facility] [address] [id number] [place] [address]- 9095 24 Jan, 2012 [facility] [place] [facility] [address] [id number] [place] [address]- 8216 Jan, [facility] [place] [facility] [address] [id number] [place] [address] 8953 Jan, [facility] [place] [facility] [address] [id number] [place] [address]- 2786 Dec, [facility] [place] [facility] [address] [id number] [place] [address]- [address]156 Dec, [facility] [place] [facility] [address] [id number] [place] [address]- 6486 Dec, [facility] [address] [id number] [place] [address]- [address]25 Dec, [facility] [place] [facility] [address] [id number] [place] [address]- 1152 Dec, [facility] [address] [id number] [place] [address] Dec, [facility] [address] [id number] [place] [address]- 7355 Dec, [facility] [place] [facility] [address] [id number] [place] [address]- 6665 Nov, [facility] [place] [facility] [address] [id number] [place] [address]- 8417 Nov, [facility] [place] [facility] [address] [id number] [place] [address]359 Nov, [facility] [place] [facility] [address] [id number] [place] [address]- 1276 Nov, [facility] [place] [facility] [address] [id number] [place] [address]- 2160 Nov, [facility] [place] [facility] [address] [id number] [place] [address]- 5184 Oct, [facility] [place] [facility] [address] [id number] [place] [address]- 6158 Oct, [facility] [place] [facility] [address] [id number] [place] [address]- 6073 Oct, [facility] [address] [id number] [place] [address]- 8636 September, [facility] [address] [id number] [place] [address]- 9438 September, [facility] [address] [id number] [place] [address]- 6242 September, [facility] [address] [id number] [place] [address]- 2778 September, [facility] [address] [id number] [place] [address]- [address]109 September, [facility] [address] [id number] [place] [address]- 3604 September, [facility] [address] [id number] [place] [address]- 5036 September, [facility] [address] [id number] [place] [address]- 5786 Aug, [facility] [address] [id number] [place] [address]- 6051 Aug, [facility] [address] [id number] [place] [address]- 1501 Aug[facility] [facility] [address] [id number] [place] [address] 29 Jul, 2012 [facility] [place] [facility] [address] [id number] [place] [address] 3971 27 Jul, 2012 [facility] [place] [facility] [address] [id number] [place] [address] 6[address] 26 Jul, 2012 [facility] [place] [facility] [address] [id number] [place] [address] 6881 20 Jul, 2012 [facility] [place] [facility] [address] [id number] [place] [address] 2898 18 Jul, 2012 [facility] [place] [facility] [address] [id number] [place] [address] 3391 18 Jul, 2012 [facility] [address] [id number] [place] [address] Jul, [facility] [place] [facility] [address] [id number] [place] [address] 2546 Jun, [facility] [address] [id number] [place] [address] 1341 Jun, [facility] [place] [facility] [address] [id number] [place] [address] 5466 Jun, [facility] [address] [id number] [place] [address]- 5081 Jun, [facility] [address] [id number] [place] [address] 6952 Jun, [facility] [address] [id number] [place] [address]- 9012 Jun, [facility] [address] [id number] [place] [address]- 9680 Jun, [facility] [address] [facility] [id number] [place] [address]- 4766 Jun, [facility] [place] [facility] [address] [id number] [place] [address] 7138 Jun, [facility] [address] [id number], [place] [address] 4[address] Jun, [facility] [place] [facility] [address] [id number] [place] [address]- 0373 May, [facility] [place] [facility] [address] [id number] [place] [address]- 0050 May, [facility] [place] [facility] [address] [id number], [place] [address] 12[address] May, [facility] [place] [facility] [address] [id number], [place] [address]227 17 May, 2012 [facility] [address] [id number] [place] [address]- 6264 15 May, 2012 [facility] [place] [facility] [address] [id number] [place] [address]- 4546 07 May, 2012 [facility] [place] [facility] [address] [facility] [id number] [place] [address]- 4376 31 Apr, 2012 [facility] [place] [facility] [address] [id number] [place] [address]- 3866 31 Apr, 2012 [facility] [place] [facility] [address] [id number] [place] [address]- 1294 Apr, [facility] [place] [facility] [address] [id number] [place] [address]- 5421 Apr, [facility] [place] [facility] [address] [id number] [address] Apr, [facility] [place] [facility] [address] [id number] [place] [address]- 7523 Apr, [facility] [place] [facility] [address] [facility] [id number] [place] [address]- 1815 Apr, [facility] [place] [facility] [address] [facility] [id number] [place] [address]- 1695 29 Mar, 2012 [facility] [place] [facility] [address] [id number] [place] [address]- 6283 29 Mar, 2012 [facility] [place] [facility] [address] [id number] [place] [address]- 0860 27 Mar, 2012 [facility] [place] [facility] [address] [id number] [place] [address]- 3670 20 Mar, 2012 [facility] [place] [facility] [address] [facility] [id number] [place] [address]- 1271 20 Mar, 2012 [facility] [place] [facility] [address] [facility] [id number] [place] [address]- 2435 18 Mar, 2012 [facility] [place] [facility] [address] [id number] [place] [address]- 2950 18 Mar, 2012 [facility] [place] [facility] [address] [id number] [place] [address]- 2585 Mar, [facility] [place] [facility] [address] [id number] [place] [address]- 9776 Mar, [facility] [place] [facility] [address] [id number] [place] [address]- 6591 Mar, [facility] [place] [facility] [address] [id number] [place] [address]- 9495 Mar, [facility] [place] [facility] [address] [id number] [place] [address]- 2372 Mar, [facility] [place] [facility] [address] [id number] [place] [address] Mar, [facility] [place] [facility] [address] [id number] [place] [address]- 6332 Mar, [facility] [place] [facility] [address] [id number] [place] [address]- 2952 Mar, [facility] [place] [facility] [address] [id number] [place] [address]- 3826 Mar, [facility] [place] [facility] [address] [facility] [id number] [place] [address]- 3857 Mar, [facility] [place] [facility] [address] [id number] [place] [address]- 0403 Feb, [facility] [place] [facility] [address] [id number] [place] [address] Feb, [facility] [place] [facility] [address] [id number] [place] [address]- 5992 Feb, [facility] [place] [facility] [address] [id number] [place] [address]- 1326 Feb, [facility] [place] [facility] [address] [id number] [place] [address]- 0049 16 Feb, 2012 [facility] [place] [facility] [address] [id number] [place] [address]- 4835 16 Feb, 2012 [facility] [place] [facility] [address] [id number] [place] [address]- 8179 Feb, [facility] [place] [facility] [address] [id number] [place] [address]- 3149 Feb, [facility] [place] [facility] [address] [id number] [place] [address]- 3309 05 Feb, 2012 [facility] [place] [facility] [address] [id number] [place] [address]- 3547 04 Feb, 2012 [facility] [place] [facility] [address] [id number] [place] [address]- 7691 02 Feb, 2012 [facility] [place] [facility] [address] [id number] [place] [address]- 2667 27 Jan, 2012 [facility] [place] [facility] [address] [id number] [place] [address]- 5966 25 Jan, 2012 [facility] [place] [facility] [address] [id number] [place] [address]- 7561 13 Jan, 2012 [facility] [place] [facility] [address] [id number] [place] [address]- 5202 12 Jan, 2012 [facility] [place] [facility] [address] [id number], [place] [address] 3206 07 Jan, 2012 [facility] [place] [facility] [address] [id number], [place] [address]- 8270 31 Dec, 2011 [facility] [place] [facility] [address] [id number] [place] [address]- 6869 24 Dec, 2011 [facility] [place] [facility] [address] [id number] [place] [address]- 5907 22 Dec, 2011 [facility] [place] [facility] [address] [id number] [place] [address]- 6865 18 Dec, 2011 [facility] [place] [facility] [address] [id number] [place] [address]- 4748 Dec, [facility] [place] [facility] [address] [id number] [place] [address]- 5125 Dec, [facility] [place] [facility] [address] [id number] [place] [address]- 1486 Dec, [facility] [place] [facility] [address] [id number] [place] [address]- 5766 Dec, [facility] [place] [facility] [address] [id number] [place] [address]- 0319 Nov, [facility] [place] [facility] [address] [id number] [place] [address]- 8244 Nov, [facility] [place] [facility] [address] [id number] [place] [address]- 7894 Nov, [facility] [place] [facility] [address] [id number] [place] [address]- 5095 Nov, [facility] [place] [facility] [address] [id number] [place] [address]- 7304 Nov, [facility] [place] [facility] [address] [id number] [place] [address]- 5666 Oct, [facility] [place] [facility] [address] [id number] [place] [address]- 2888 Oct, [facility] [place] [facility] [address] [id number] [place] [address]- 3479 September, [facility] [place] [facility] [address] [id number] [place] [address]- 4994 September, [facility] [place] [facility] [address] [id number] [place] [address]- 8547 September, [facility] [place] [facility] [address] [id number] [place] [address]- 7036 September, [facility] [place] [facility] [address] [id number] [place] [address]- 7375 September, [facility] [place] [facility] [address] [id number] [place] [address]- 0329 September, [facility] [address] [id number] [place] [address]- 9697 September, [facility] [address] [id number] [place] [address]- 3529 September, [facility] [address] [id number] [place] [address]- 2498 September, [facility] [address] [id number] [place] [address]- 5802 September, [facility] [address] [id number] [place] [address]- 8110 September, [facility] [address] [id number] [place] [address]- 6956 September, [facility] [address] [id number] [place] [address]- 9616 September, [facility] [address] [id number] [place] [address]- 3455 September, [facility] [address] [id number] [place] [address]- 1416 24 Aug, 2011 [facility] [place] [facility] [address] [id number] [place] [address]- 2925 Aug, [facility] [place] [facility] [address] [id number] [place] [address]- 2616 13 Aug, 2011 [facility] [place] [facility] [address] [id number] [place] [address]- 8402 Aug, [facility] [place] [facility] [address] [id number] [place] [address]- 5591 23 Jul, 2011 [facility] [place] [facility] [address] [id number] [place] [address]- 5959 13 Jul, 2011 [facility] [place] [facility] [address] [id number] [place] [address]- 8175 Jul, [facility] [address] [id number] [place] [address]- 6490 Jun, [facility] [address] [id number] [place] [id number] Jun, [facility] [address] [id number] [address]- 7794 Jun, [facility] [address] [id number] [place] [address]- 5077 Jun, [facility] [address] [id number] [place] [address]- 3412 Jun, [facility] [address] [facility] [id number] [place] [address]- 1410 Jun, [facility] [address] [id number] [place] [address]- 2157 Jun, [facility] [address] [id number] [place] [address]- 4603 Jun, [facility] [address] [id number] [place] [address]- 6467 May, [facility] [address] [id number] [place] [address]- 5820 May, [facility] [address] [id number], [place] [address]- 6812 May, [facility] [address] [id number], [place] [address]- 8906 May, [facility] [address] [id number] [place] [address]- 9010 May, [facility] [address] [facility] [id number] [place] [address]- 6081 May, [facility] [address] [id number] [place] [address]- 3650 May, [facility] [place] [facility] [address] [id number] [place] [address]- 3818 May, [facility] [address] [id number] [place] [address]- 1490 May, [facility] [place] [facility] [address] [id number] [place] [address]- 6536 May, [facility] [place] [facility] [address] [id number] [place] [address]- 4585 May, [facility] [place] [facility] [address] [id number] [place] [address]- 9291 May, [facility] [address] [id number] [place] [address]- 6588 May, [facility] [place] [facility] [address] [id number] [place] [address]- 6758 May, [facility] [place] [facility] [address] [id number] [place] [address]- 9023 Apr, [facility] [address] [id number] [place] [address]- 2774 Apr, [facility] [place] [facility] [address] [id number] [place] [address]- 6606 Apr, [facility] [place] [facility] [address] [id number] [place] [address]- 3941 Mar, [facility] [place] [facility] [address] [id number] [place] [address]- 9125 Mar, [facility] [place] [facility] [address] [id number] [place] [address]- 1969 Feb, [facility] [place] [facility] [address] [id number] [place] [address]- 4738 Feb, [facility] [place] [facility] [address] [id number] [place] [address]- 3707 Feb, [facility] [place] [facility] [address] [id number] [place] [address]- 2518 Feb, [facility] [place] [facility] [address] [id number] [place] [address]- 0913 13 Feb, 2011 [facility] [place] [facility] [address] [id number] [place] [address]- 6706 28 Apr, 2010 [facility] [place] [facility] [address] [id number] [place] [address]- 5830 22 Apr, 2010 [facility] [place] [facility] [address] [id number] [place] [address]- 9116 16 Apr, 2010 [facility] [place] [facility] [address] [id number] [place] [address]- 7673 15 Apr, 2010 [facility] [place] [facility] [address] [id number] [place] [address]- 5388 15 Apr, 2010 [facility] [place] [facility] [address] [id number] [place] [address]- 3550 Apr, [facility] [place] [facility] [address] [id number] [place] [address]- 1376 24 Mar, 2010 [facility] [place] [facility] [address] [id number] [place] [address]- 6610 17 Mar, 2010 [facility] [place] [facility] [address] [id number] [place] [address]- 1137 17 Mar, 2010 [facility] [place] [facility] [address] [id number] [place] [address]- 7316 28 Feb, 2010 [facility] [place] [facility] [address] [id number], [place] [address]- 5597 Feb, [facility] [place] [facility] [address] [id number] [place] [address]- 5157 Feb, [facility] [place] [facility] [address] [id number], [place] [address]- 2292 15 Feb, 2010 [facility] [place] [facility] [address] [id number] [place] [address]- 1967 18 Dec, 2009 [facility] [place] [facility] [address] [facility] [id number] [place] [address]- 1056 Dec, [facility] [address] [facility] [id number], [place] [address]- 0019 Oct, [facility] [address] [id number], [place] [address]- 3934 Mar, [facility] [address] [facility] [id number], [place] [address]- 4894 Mar, [facility] [address] [facility] [id number], [place] [address]- 5919 September, IMMUNIZATIONS No Known Immunizations SOCIAL HISTORY Never Assessed REASON FOR VISIT Controlled Med Refill 01/30/2017 PLAN OF CARE VITAL SIGNS MEDICATIONS Medication Instructions Dosage Frequency Start Date End Date Duration Status Acetaminophen-Codeine #3 300-30 MG Orally every 6 hrs 1 tablet as needed 6h Oct, 28 days Active Chlordiazepoxide HCl 10 mg Orally Three times a day 1 capsule 8h Aug, 28 days Active RESULTS No Results PROCEDURES [...]
--- OUTSIDE RECORDS SUMMARY | 2017-10-05 15:55 | XMS REPORT ---
Author Author VALERIE ZAVALA Organization [facility] Address [address] [place] [address] Care Team Providers Care Generator Man Name Role Phone VALERIE ZAVALA Unavailable PROBLEMS Type Condition ICD9-CM Code [id number] Code Onset Dates Condition Status SNOMED Code Problem Generalized anxiety disorder F41.1 Active 97779958 Problem Hypokalemia E87.6 Active 660813839 Problem Pulmonary emphysema, unspecified emphysema type J43.9 Active 72205609 Problem Right low back pain, with sciatica presence unspecified M54.5 Active 756554265 Problem Post-traumatic stress disorder, chronic F43.12 Active 86251257 Problem Pain in right knee M25.561 Active 54075277 Problem Gastroesophageal reflux disease without esophagitis K21.9 Active 232461298 Problem Neuropathy G62.9 Active 332808223 Problem Essential hypertension I10 Active 03961420 Problem Generalized abdominal pain R10.84 Active 313208031 Problem Kidney stones N20.0 Active 81385582 Problem Back pain M54.9 Active 614864175 Problem Right foot pain M79.671 Active 56095255 Problem UTI symptoms R39.9 Active 08290310 Problem Other emphysema J43.8 Active 91475206 Problem Anxiety F41.9 Active 42890262 Problem Renal calculus, right N20.0 Active 78939289 Problem Panic attacks F41.0 Active 873951491 Problem Depression, unspecified depression type F32.9 Active 13467356 Problem Weight decrease R63.4 Active 923984685 Problem Chronic pain G89.29 Active 45507414 Problem Bone pain M89.8X9 Active 30161123 Problem Weight loss R63.4 Active 185389576 Problem Insomnia, unspecified type G47.00 Active 341516390 Problem Tobacco abuse Z72.0 Active 07217012 Problem Right upper quadrant abdominal pain R10.11 Active 863024918 ALLERGIES No Information ENCOUNTERS Encounter Location Date Diagnosis [facility] [id number] [address] September, [facility] [id number] [place] [address] 08539 -4106 Jul, Dysuria R30.0 and Renal calculus, right N20.0 [facility] [id number] [place] [address] 74613- 5750 Jul, Medicare welcome exam Z00.00 [facility] [id number] [place] [address] 21565- 6378 13 Jun, 2017 Gastroesophageal reflux disease without esophagitis K21.9 and Generalized abdominal pain R10.84 [facility] [id number] [place] [address] 24195- 2158 09 Jun, 2017 Medicare welcome exam Z00.00 [facility] [id number] [place] [address] 72122- 0065 Jun, [facility] [id number] [place] [address] 37551- 5131 Jun, Medicare welcome exam Z00.00 and Encounter for screening mammogram for malignant neoplasm of breast Z12.31 [facility] [id number] [place] [address] 52449- 0777 Jun, Chronic pain G89.29 [facility] [id number] [place] [address] 97227- 8171 May, [facility] [id number] [place] [address] 87982- 6938 May, Pelvic pain R10.2 [facility] [id number] [place] [address] 08343- 1845 May, Pelvic pain R10.2 [facility] [id number] [place] [address] 35999 -2813 May, Renal calculus, right N20.0 [facility] [id number] [place] [address] 13216- 6783 May, Hematuria, unspecified type R31.9 and Nephrolithiasis N20.0 [facility] [id number] [place] [address] 18121 -4158 May, Dysuria R30.0 and Nephrolithiasis N20.0 [facility] [id number] [place] [address] 13630- 0124 May, [facility] [id number] [place] [address] 26545 -7893 May, Abdominal pain R10.9 and Kidney stone N20.0 [facility] [id number] [place] [address] 50455- 6518 May, [facility] [id number] [place] [address] 19373- 1455 May, Chronic pain G89.29 and Panic attacks F41.0 [facility] [id number] [place] [address] 69911- 9819 May, Urinary tract infection without hematuria, site unspecified N39.0 [facility] [id number] [place] [address] 28121- 0766 Apr, Right lower quadrant abdominal pain R10.31 and Abnormal serum lipase level R74.8 [facility] [id number] [place] [address] 79633- 5791 Apr, Recurrent urinary tract infection N39.0 [facility] [id number] [place] [address] 89745- 1535 Apr, UTI symptoms R39.9 ; Recurrent urinary tract infection N39.0 and Pelvic pain R10.2 [facility] [id number] [place] [address] 70276- 0388 Apr, Chronic pain G89.29 and Panic attacks F41.0 [facility] [id number] [place] [address] 86171- 8702 Apr, Dysuria R30.0 [facility] [id number] [place] [address] 37211- 5567 Apr, [facility] [id number] [place] [address] 51850- 7953 Apr, Dysuria R30.0 and Urinary tract infection without hematuria , site unspecified N39.0 [facility] [id number] [place] [address] 13419- 6438 Mar, UTI symptoms R39.9 [facility] [id number] [place] [address] 45251- 7596 Mar, [facility] [id number] [place] [address] 77857- 5286 Mar, Panic attacks F41.0 and Chronic pain G89.29 [facility] [address] 41730- 0035 Mar, [facility] [id number] [place] [address] 50836- 2828 Mar, Dysuria R30.0 [facility] [id number] [place] [address] 60033- 8008 Mar, Dysuria R30.0 [facility] [id number] [place] [address] 05937- 0284 Feb, Chronic pain G89.29 ; Shortness of breath R06.02 ; Weight loss R63.4 ; Encounter for immunization Z23 ; Bone pain M89.8X9 ; Right anterior knee pain M25.561 and Cough R05 [facility] [id number] [place] [address] 90880- 2491 Feb, Shortness of breath R06.02 [facility] [id number] [place] [address] 01502- 6820 Feb, [facility] [id number] [place] [address] 17500- 8458 Feb, Panic attacks F41.0 and Chronic pain G89.29 [facility] [id number] [place] [address] 67634- 1173 Feb, [facility] [id number] [place] [address] 87235- 5720 Feb, Panic attacks F41.0 ; Shortness of breath R06.02 and Encounter for immunization Z23 [facility] [address] 59455- 1360 Jan, [facility] [address] 09732- 3939 Jan, Anxiety F41.9 and Chronic pain G89.[address] 30336- 5153 Dec, Anxiety F41.9 and Chronic pain G89.[address] 68859- 2416 Nov, Chronic pain G89.[address] 72695- 3577 Nov, Anxiety F41.9 [place] [id number] [place] [address] 54260- 1627 Nov, Chronic pain G89.29 ; Essential hypertension I10 and Other emphysema J43.8 [place] [id number] [place] [address] 17361- 3195 Oct, Anxiety F41.9 [facility] [id number] [place] [address] 94005- 8512 Oct, [address] 89177- 2873 Oct, Chronic pain G89.29 [place] [id number] [place] [address] 68470- 1617 September, Recurrent UTI N39.0 ; Neuropathy G62.9 and Anxiety F41.9 [facility] [id number] [place] [address] 06850- 0112 September, [facility] [id number] [place] [address] 43964- 2492 September, Chronic pain G89.29 [facility] [id number] [place] [address] 31356- 1384 September, [facility] [id number] [place] [address] 53768- 6126 Aug, Post-traumatic stress disorder, chronic F43.12 ; Chronic urinary tract infection N39.0 ; Gastroesophageal reflux disease without esophagitis K21.9 ; Chronic pain G89.29 ; Essential hypertension I10 and Tobacco abuse Z72.0 [facility] [id number] [place] [address] 18104 -0373 Aug, [facility] [id number] [place] [address] 46413- 6475 Aug, Chronic pain G89.29 [facility] [id number] [place] [address] 79080- 0380 Aug, Insomnia, unspecified type G47.00 [facility] [id number] [place] [address] 42020- 1577 Aug, [facility] [id number] [place] [address] 88637- 9046 Jul, Chronic pain G89.29 [facility] [id number] [place] [address] 33446- 9436 Jul, [facility] [id number] [place] [address] 84751- 2262 Jul, [facility] [id number] [place] [address] 55680- 8591 Jul, [facility] [id number] [place] [address] 30034- 2783 15 Jul, 2016 Recurrent UTI (urinary tract infection) N39.0 [facility] [address] [address]- 8043 14 Jul, 2016 [facility] [id number] [place] [address] 95592- 8285 Jun, Chronic pain G89.29 [facility] [id number] [place] [address] 50059- 8397 Jun, [facility] [id number] [place] [address] 92748- 2692 Jun, [facility] [id number] [place] [address] 30725- 0296 May, Chronic pain G89.29 [facility] [id number] [place] [address] 62251- 3958 May, Weight loss R63.4 and Shortness of breath R06.02 [facility] [id number] [place] [address] 37371- 8290 May, Chronic pain G89.29 ; Weight loss R63.4 and Tobacco abuse Z72.0 [facility] [id number] [place] [address] 05939- 7963 May, [facility] [id number] [place] [address] 10767- 1537 May, Hypoxia R09.02 [facility] [id number] [place] [address] 68000- 6960 May, [facility] [id number] [place] [address] 63045- 7992 May, Pulmonary emphysema, unspecified emphysema type J43.9 [facility] [id number] [place] [address] 88212 -4505 May, [facility] [id number] [place] [address] 80644- 2301 May, [facility] [id number] [place] [address] 56776- 6201 May, [facility] [address] 76475- 6036 May, Chronic pain G89.29 ; Encounter for immunization Z23 ; Right anterior knee pain M25.561 and Cough R05 [facility] [address] 55897- 0746 Apr, Chronic pain G89.29 [facility] [id number] [place] [address] 11591- 9115 Apr, [facility] [address] 43028- 3247 Apr, Generalized anxiety disorder F41.1 and Depression, unspecified depression type F32.9 [facility] [id number] [place] [address] 17259- 2944 Apr, Chronic pain G89.29 ; Hypokalemia E87.6 and Insomnia, unspecified type G47.00 [facility] [id number] [place] [address] 01480- 0686 Apr, [facility] [id number] [place] [address] 86393- 6418 Apr, Chronic pain G89.29 [facility] [id number] [place] [address] 57281- 2769 Apr, [facility] [id number] [place] [address] 72977- 8319 Mar, [facility] [id number] [place] [address] 68942- 6551 Mar, Insomnia, unspecified type G47.00 [facility] [id number] [place] [address] 36025- 2926 Mar, Chronic pain G89.29 [facility] [id number] [place] [address] 90110- 6296 Mar, [facility] [address] [facility] [id number] [address]- 1403 Feb, [facility] [id number] [place] [address] 63200- 8294 Feb, [facility] [address] [address]- 7134 Feb, [facility] [id number] [place] [address] 28277- 2469 Feb, [facility] [address] [facility] [id number] [place] [address], [place] [address]- 4835 Feb, [facility] [id number] [place] [address] 81585- 4424 29 Jan, 2016 [facility] [id number] [place] [address] 07199- 0493 26 Jan, 2016 [facility] [id number] [place] [address] 14680- 3455 20 Jan, 2016 [facility] [id number] [address]- 2070 13 Jan, 2016 [facility] [address] [address]- 5037 12 Jan, 2016 [facility] [address] [address]- 8225 07 Jan, 2016 Chronic pain G89.29 [facility] [address] [address]- 0544 Jan, Chronic pain G89.29 and Fibromyalgia M79.7 [facility] [id number] [place] [address] 19109- 1701 Dec, Depression, unspecified depression type F32.9 and Generalized anxiety disorder 300.02 [facility] [address] [address]- 1781 Dec, Dysthymia F34.1 ; Insomnia, unspecified type G47.00 and Chronic pain G89.29 [facility] [id number] [place] [address] 85733- 6635 Dec, Chronic pain G89.29 [facility] [id number] [place] [address] 26442- 6473 Dec, Insomnia, unspecified type G47.00 [facility] [id number] [place] [address] 12493 254 Dec, Fibromyalgia M79.7 and Chronic pain G89.29 [facility] [id number] [place] [address] 58677- 8150 Dec, [facility] [id number] [place] [address] 63900- 5508 Dec, [facility] [id number] [place] [address] 12334- 2215 Dec, [facility] [id number] [place] [address] 56559- 4923 Dec, [facility] [id number] [place] [address] 07085- 6977 Dec, Chronic pain G89.29 [facility] [id number] [place] [address] 31367 2544 Dec, [facility] [id number] [place] [address] 08636- 0766 Dec, [facility] [id number] [place] [address] 50665 254 Dec, [facility] [id number] [place] [address] 32224- 6261 Dec, Chronic pain G89.29 and Dysthymia F34.1 [facility] [id number] [place] [address] 62926 2540 Nov, [facility] [id number] [place] [address] 73812- 0720 Nov, Hypokalemia E87.6 and Chronic pain G89.29 [facility] [facility] [id number] [place] [address] 50601- 5172 Nov, Back pain M54.9 and Pain in right knee M25.561 [facility] [id number] [place] [address] 55005- 6890 Nov, [facility] [address] 38037- 9446 Nov, Chronic pain G89.29 [facility] [address] 17818- 9019 Nov, Chronic pain G89.29 ; Weight loss R63.4 ; Bone pain M89.8X9 and Insomnia, unspecified type G47.00 [facility] [id number] [place] [address] 61425- 8522 Nov, Chronic pain G89.29 [facility] [id number] [place] [address] 22124- 2307 Nov, Chronic pain G89.29 [facility] [address] 03603- 7837 Oct, Chronic pain G89.29 [facility] [id number] [place] [address] 68214- 4171 Oct, UTI symptoms R39.9 [facility] [id number] [place] [address] 12095- 5429 Oct, Chronic pain G89.29 [facility] [id number] [place] [address] 50822- 2179 Oct, Chronic pain G89.29 [facility] [id number] [place] [address] 56099- 4324 13 Oct, 2015 Chronic pain G89.29 [facility] [id number] [place] [address] 73920- 2369 Oct, Right upper quadrant abdominal pain R10.11 [facility] [address] [address]- 6650 Oct, Chronic pain G89.29 [facility] [address] [address]- 5473 Oct, [facility] [id number] [place] [address] 25863- 1779 September, Chronic pain G89.29 [facility] [id number] [place] [address] 27995- 1633 September, Dysuria R30.0 and Urinary tract infection without hematuria , site unspecified N39.0 [facility] [id number] [place] [address] 62901- 1307 September, [facility] [id number] [place] [address] 00022- 3466 September, Dysuria R30.0 [facility] [id number] [place] [address] 99399- 6052 September, Chronic pain G89.29 [facility] [id number] [place] [address] 01732- 5130 September, Chronic pain G89.29 and Essential hypertension I10 [facility] [address] [address]- 2502 September, [facility] [id number] [place] [address] 77124- 1717 September, [facility] [address] [address]- 4254 September, [facility] [id number] [place] [address] 83561- 7684 Aug, UTI symptoms R39.9 [facility] [address] [address]- 6767 Aug, Dysuria R30.0 [facility] [address] [address]- 1483 Aug, [facility] [id number] [place] [address] 60110- 9712 Aug, [facility] [address] [address]- 3538 Aug, [facility] [id number] [place] [address] 82272- 5038 Aug, Chronic pain G89.29 [facility] [id number] [place] [address] 88644- 6390 Aug, Dysthymia F34.1 [facility] [id number] [place] [address] 08858- 9153 Aug, Conjunctivitis, unspecified conjunctivitis type, unspecified laterality H10.9 [facility] [id number] [place] [address] 37568- 1278 31 Jul, 2015 Chronic pain G89.29 ; Back pain M54.9 ; Tobacco abuse Z72.0 and Weight decrease R63.4 [facility] [id number] [place] [address] 68365- 9371 30 Jul, 2015 [facility] [address] [address]- 9498 30 Jul, 2015 [facility] [address] [address]- 0129 24 Jul, 2015 Chronic pain G89.29 [facility] [address] [address] Jul, [facility] [id number] [place] [address]45- 6000 21 Jul, 2015 [facility] [id number] [address] 18 Jul, 2015 [facility] [id number] [place] [address] 06361- 5076 17 Jul, 2015 [facility] [id number] [address] Jul, Chronic pain G89.29 [facility] [address] 16 Jul, 2015 Chronic pain G89.29 [facility] [address] [address] 15 Jul, 2015 [facility] [id number] [address] Jul, [facility] [id number] [place] [address] 95329- 4511 Jul, [facility] [id number] [address] Jul, [facility] [id number] [place] [address] 09213- 3938 Jun, [facility] [id number] [address] Jun, Depression, unspecified depression type F32.9 [facility] [id number] [place] [address] 85065- 9957 Jun, Pain in right knee M25.561 [facility] [id number] [address] Jun, Chronic pain G89.29 ; Back pain M54.9 ; Bone pain M89.8X9 and Weight loss R63.4 [facility] [address] [address] Jun, [facility] [id number] [address] May, [facility] [id number] [address] May, UTI symptoms R39.9 ; Pain in right knee M25.561 ; Right low back pain, with sciatica presence unspecified M54.5 ; Right foot pain M79.671 ; Hypokalemia E87.6 and Screening, lipid Z13.220 [facility] [id number] [place] [address] 64623- 6270 May, [facility] [address] [address] May, [facility] [address] [address] Mar, [facility] [address] [address]- [address] Mar, [facility] [address] [address]- [address] Mar, Hypokalemia E87.6 [facility] [address] [address] Mar, Encounter for immunization Z23 ; Pain in right leg M79.604 ; Pain in right knee M25.561 and Hypokalemia E87.6 [facility] [id number] [place] [address] 73862- 7257 Jan, [facility] [id number] [place] [address] 64727- 9760 Jan, [facility] [id number] [place] [address] 78917- 9944 Jan, Abdominal pain, generalized 789.07 [facility] [id number] [place] [address] 75906- 4627 Jan, Abdominal pain, generalized 789.07 [facility] [address] [id number] [place] [address]29- 8118 Dec, [facility] [id number] [place] [address] 63336- 7338 Dec, [facility] [address] [address]- 4898 Dec, [facility] [id number] [address] 2218 Nov, Hallux valgus 735.0 and Hammertoe 735.4 [facility] [address] [facility] [id number] [address] 1016 Nov, [facility] [id number] [place] [address] 41305- 5146 Nov, Hallux valgus 735.0 and Hammer toe 735.4 [facility] [id number] [place] [address] 66989- 4686 Oct, [facility] [id number] [place] [address] 46101- 9056 Oct, [facility] [id number] [place] [address] 87296- 7414 Oct, Pre-op evaluation V72.84 [facility] [id number] [address] 8720 Oct, [facility] [id number] [place] [address] 86793- 9589 Oct, [facility] [id number] [address]- 6273 September, [facility] [id number] [place] [address] 30067- 2526 September, [facility] [id number] [address] 8007 September, Hallux valgus (acquired) 735.0 and Other hammer toe ( acquired) 735.4 [facility] [id number] 9659 Aug, [facility] [id number] [address]- 9361 Aug, [facility] [place] [facility] [address] [facility] [id number] [place] [address]- 5556 09 Jul, 2014 [facility] [place] [facility] [address] [id number] [place] [address]- 0503 Jul, 2014 [facility] [place] [facility] [address] [id number] [place] 7310 Jul, 2014 [facility] [place] [facility] [address] [id number] [place] [address]- 3801 Jul, 2014 [facility] [place] [facility] [address] [id number] [place] [address]- 0366 Jul, 2014 [facility] [place] [facility] [address] [id number] [place] [address]- 2791 Jul, 2014 [facility] [place] [facility] [address] [facility] [id number] [place] [address]- 1293 Jul, 2014 [facility] [place] [facility] [address] [id number] [place] [address]- 5128 Jul, 2014 [facility] [place] [facility] [address] [id number] [place] [address]- 5938 Jun, 2014 [facility] [place] [facility] [address] [facility] [id number] [place] [address]- 4307 Jun, 2014 [facility] [place] [facility] [address] [facility] [id number] [place] [address]- 3411 Jun, 2014 [facility] [place] [facility] [address] [facility] [id number] [place] [address]- 4902 Jun, 2014 [facility] [place] [facility] [address] [facility] [id number] [place] [address]- 1861 Jun, 2014 [facility] [place] [facility] [address] [id number] [place] [address]- 9791 Jun, 2014 [facility] [place] [facility] [address] [facility] [id number] [place] [address]- 0596 Jun, 2014 [facility] [place] [facility] [address] [facility] [id number] [address]- 5144 Jun, [facility] [place] [facility] [address] [id number] [place] [address]- 7521 Jun, [facility] [place] [facility] [address] [id number] [place] [address]- 9669 Jun, [facility] [place] [facility] [address] [id number] [place] [address]- 3985 May, [facility] [place] [facility] [address] [id number] [place] [address]- 9291 May, [facility] [place] [facility] [address] [id number] [place] [address]- 0112 May, [facility] [place] [facility] [address] [id number] [place] [address]- 4263 May, [facility] [place] [facility] [address] [id number] [place] [address]- 9803 May, [facility] [place] [facility] [address] [id number] [place] [address]- 8444 May, [facility] [place] [facility] [address] [id number] [place] [address]- 4427 May, [facility] [place] [facility] [address] [id number] [place] [address]- 1740 May, [facility] [place] [facility] [address] [id number] [place] [address]- 9352 May, [facility] [place] [facility] [address] [id number] [address]- 7903 May, [facility] [place] [facility] [address] [id number] [place] [address]- 1497 May, [facility] [place] [facility] [address] [id number] [place] [address]- 3306 May, [facility] [place] [facility] [address] [id number] [place] [address]- 1562 May, [facility] [place] [facility] [address] [id number] [place] [address]- 3573 May, [facility] [place] [facility] [address] [id number] [place] [address]- 9350 May, [facility] [place] [facility] [address] [id number] [place] [address]- 0316 May, [facility] [place] [facility] [address] [id number] [place] [address]- 7916 May, [facility] [place] [facility] [address] [id number] [place] [address]- 1703 May, [facility] [place] [facility] [address] [id number] [place] 5479 Apr, [facility] [place] [facility] [address] [id number] [place] 8803 Apr, [facility] [place] [facility] [address] [id number] [place] [address]- 0880 Apr, [facility] [place] [facility] [address] [id number] [place] 3560 Apr, [facility] [place] [facility] [address] [id number] [place] 2688 Apr, [facility] [place] [facility] [address] [id number] [place] [address]- 4537 Apr, [facility] [place] [facility] [address] [id number] [place] [address]- 6053 Apr, [facility] [place] [facility] [address] [id number] [place] [address]- 8450 Apr, [facility] [place] [facility] [address] [id number] [place] [address]- 4676 Apr, [facility] [place] [facility] [address] [id number] [place] [address]- 2794 Mar, [facility] [place] [facility] [address] [id number] [place] [address]- 5667 Mar, [facility] [place] [facility] [address] [id number] [place] [address]- 0438 Mar, [facility] [place] [facility] [address] [id number] [place] [address]- 8684 Mar, [facility] [place] [facility] [address] [id number] [place] [address]- 1230 Mar, [facility] [place] [facility] [address] [id number] [place] [address]- 5859 Feb, [facility] [place] [facility] [address] [id number] [place] [address]- 4516 Feb, [facility] [place] [facility] [address] [id number] [place] [address]- 6426 Feb, [facility] [place] [facility] [address] [id number] [place] [address]- 2425 Feb, [facility] [place] [facility] [address] [id number] [address]- 6898 Feb, [facility] [place] [facility] [address] [id number] [place] [address]- 6256 Feb, [facility] [place] [facility] [address] [id number] [address]- 8566 Feb, [facility] [place] [facility] [address] [id number] [address]- 6638 Feb, [facility] [place] [facility] [address] [id number] [address]- 5338 Feb, [facility] [place] [facility] [address] [id number] [address]- 6937 Feb, [facility] [place] [facility] [address] [id number] [address]- 3004 Feb, [facility] [place] [facility] [address] [id number] [address]- 0570 Feb, [facility] [place] [facility] [address] [id number] [place] [address]- 8534 07 Feb, 2013 [facility] [place] [facility] [address] [id number] [place] [address]- 1746 07 Feb, 2013 [facility] [place] [facility] [address] [id number] [place] [address]- 2726 Feb, 2013 [facility] [place] [facility] [address] [id number] [place] [address]- 3628 Feb, [facility] [place] [facility] [address] [id number] [place] [address]- 1821 23 Jan, 2013 [facility] [place] [facility] [address] [id number] [place] [address]- 6019 23 Jan, 2013 [facility] [place] [facility] [address] [id number] [place] [address]- 6343 20 Jan, 2014 [facility] [place] [facility] [address] [id number] [place] [address]- 9035 19 Jan, 2013 [facility] [place] [facility] [address] [id number] [place] [address]- 8128 11 Jan, 2013 [facility] [place] [facility] [address] [id number] [place] [address]- 6438 Jan, [facility] [place] [facility] [address] [id number] [place] [address]- 7467 Jan, [facility] [place] [facility] [address] [id number] [place] [address]- 5208 Jan, [facility] [place] [facility] [address] [id number] [place] [address]- 4200 Dec, [facility] [place] [facility] [address] [id number] [place] [address]- 6505 Dec, [facility] [place] [facility] [address] [id number] [place] [address]- 4980 Nov, [facility] [place] [facility] [address] [id number] [place] [address]- 2068 Nov, [facility] [place] [facility] [address] [id number] [place] [address]- 1862 Nov, [facility] [place] [facility] [address] [id number] [place] [address]- 9995 Nov, [facility] [place] [facility] [address] [id number] [place] [address]- 7138 Nov, [facility] [place] [facility] [address] [id number] [place] [address]- 9212 Nov, [facility] [place] [facility] [address] [id number] [place] [address]- 1694 Nov, [facility] [place] [facility] [address] [id number] [place] [address]- 1251 Nov, [facility] [place] [facility] [address] [id number] [place] [address]- 5123 Nov, [facility] [place] [facility] [address] [id number] [place] [address]- 2099 Oct, [facility] [place] [facility] [address] [id number] [place] [address]- 8089 Oct, [facility] [place] [facility] [address] [id number] [place] [address]- 0941 Oct, [facility] [place] [facility] [address] [id number] [place] [address]- 2639 Oct, [facility] [place] [facility] [address] [id number] [place] [address]- 2561 Oct, [facility] [place] [facility] [address] [id number] [place] [address]- 8908 Oct, [facility] [place] [facility] [address] [id number] [place] [address]- 1941 September, [facility] [place] [facility] [address] [id number] [place] [address]- 1554 September, [facility] [place] [facility] [address] [id number] [place] [address]- 2336 September, [facility] [place] [facility] [address] [id number] [place] [address]- 4889 September, [facility] [place] [facility] [address] [id number] [place] [address]- 4761 September, [facility] [place] [facility] [address] [id number] [place] [address]- 3941 September, [facility] [place] [facility] [address] [id number] [place] [address]- 5875 September, [facility] [place] [facility] [address] [id number] [place] [address]- 6306 September, [facility] [place] [facility] [address] [id number] [place] [address]- 0787 September, [facility] [place] [facility] [address] [id number] [place] [address]- 2028 September, [facility] [place] [facility] [address] [id number] [place] [address]- 3278 September, [facility] [place] [facility] [address] [id number] [place] [address]- 8329 September, [facility] [place] [facility] [address] [id number] [place] [address]- 3974 September, [facility] [place] [facility] [address] [id number] [place] [address]- 6695 September, [facility] [place] [facility] [address] [id number] [place] [address]- 8754 September, [facility] [place] [facility] [address] [id number] [place] [address]- 8947 September, [facility] [place] [facility] [address] [id number] [place] [address]- 8569 September, [facility] [place] [facility] [address] [id number] [place] 2448 September, [facility] [place] [facility] [address] [id number] [place] [address]- 8843 September, [facility] [address] [id number] [place] [address]- 5525 September, [facility] [place] [facility] [address] [id number] [place] [address]- 3107 Aug, [facility] [address] [id number] [place] [address]- 1962 Aug, [facility] [place] [facility] [address] [id number] [place] [address]- 5013 Aug, [facility] [address] [id number] [place] [address]- 9424 Aug, [facility] [address] [id number] [place] [address]- 2528 Aug, [facility] [place] [facility] [address] [id number] [place] [address]- 7569 Aug, [facility] [address] [id number] [place] [address]- 9026 Aug, [facility] [place] [facility] [address] [id number] [place] [address]- 1386 Aug, [facility] [address] [id number] [place] [address]- 9953 Aug, [facility] [place] [facility] [address] [id number] [place] [address]- 4580 Aug, [facility] [place] [facility] [address] [id number] [place] [address]- 3165 14 Aug, 2013 [facility] [place] [facility] [address] [id number] [place] [address]- 9708 Aug, [facility] [place] [facility] [address] [id number] [place] [address]- 3907 Aug, [facility] [place] [facility] [address] [id number] [place] [address]- 5748 Aug, [facility] [place] [facility] [address] [id number] [place] [address]- 7937 Aug, [facility] [place] [facility] [address] [id number] [place] [address]- 7539 Jul, [facility] [place] [facility] [address] [id number] [place]444 Jul, [facility] [place] [facility] [address] [id number] [place] [address]- 4803 Jul, [facility] [place] [facility] [address] [id number] [place] [address]- 3024 Jul, [facility] [place] [facility] [address] [id number] [place] [address]- 4228 Jul, [facility] [place] [facility] [address] [id number] [place] [address]- 8601 Jul, [facility] [place] [facility] [address] [id number] [place] [address]- 0413 Jul, [facility] [place] [facility] [address] [id number] [place] [address]- 6548 Jul, [facility] [place] [facility] [address] [id number] [place] [address]- 7978 Jul, [facility] [place] [facility] [address] [id number] [place] [address]- 4366 Jul, [facility] [place] [facility] [address] [id number] [address]- 8400 Jul, [facility] [place] [facility] [address] [id number] [place] [address]- 1282 Jul, [facility] [place] [facility] [address] [id number] [place] [address]- 4684 Jul, [facility] [place] [facility] [address] [id number] [place] [address]- 4169 Jul, [facility] [place] [facility] [address] [id number] [address]- 1995 Jul, [facility] [place] [facility] [address] [id number] [place] [address]- 6296 Jun, [facility] [place] [facility] [address] [id number] [place] 2816 Jun, [facility] [place] [facility] [address] [id number] [place] [address]- 1686 Jun, [facility] [place] [facility] [address] [id number] [place] [address]- 4320 Jun, [facility] [place] [facility] [address] [id number] [place] [address]- 4786 Jun, [facility] [place] [facility] [address] [id number] [place] [address]- 2270 Jun, [facility] [place] [facility] [address] [id number] [place] [address]- 2864 May, [facility] [place] [facility] [address] [id number] [place] [address]- 8580 May, [facility] [place] [facility] [address] [id number] [place] [address]- 8784 May, [facility] [place] [facility] [address] [id number] [place] [address]- 0245 May, [facility] [place] [facility] [address] [id number] [place] [address]- 7251 May, [facility] [place] [facility] [address] [id number] [place] [address]- 3791 May, [facility] [place] [facility] [address] [id number] [place] [address]- 9035 May, [facility] [place] [facility] [address] [id number] [place] [address]- 4500 May, [facility] [place] [facility] [address] [id number] [place] [address]- 8868 May, [facility] [place] [facility] [address] [id number] [place] [address]- 8384 May, [facility] [place] [facility] [address] [id number] [place] [address]- 3612 May, [facility] [place] [facility] [address] [id number] [place] 1315 May, [facility] [place] [facility] [address] [id number] [place] [address]- 3452 May, [facility] [address] [id number] [place] [address]- 2463 May, [facility] [place] [facility] [address] [id number] [place] [address]- 4482 May, [facility] [address] [id number] [place] [address]- 6030 Apr, [facility] [place] [facility] [address] [id number] [place] [address]- 8836 Apr, [facility] [place] [facility] [address] [id number] [place] [address]- 9725 Apr, [facility] [place] [facility] [address] [id number] [place] [address]- 1116 Apr, [facility] [place] [facility] [address] [id number] [place] [address]- 7307 Apr, [facility] [place] [facility] [address] [id number] [place] [address]- 2932 Apr, [facility] [place] [facility] [address] [id number] [place] [address]- 4271 Apr, [facility] [place] [facility] [address] [id number] [place] [address]- 3846 Apr, [facility] [place] [facility] [address] [id number] [place] [address]- 1074 Apr, [facility] [place] [facility] [address] [id number] [address]- 6189 Apr, [facility] [address] [id number] [place] [address] Mar, [facility] [place] [facility] [address] [id number][place] [address] Mar, [facility] [place] [facility] [address] [id number] [place] [address] Mar, [facility] [place] [facility] [address] [id number][place] [address] Mar, [facility] [place] [facility] [address] [id number] [place] [address] Mar, [facility] [place] [facility] [address] [id number] [place] [address] Mar, [facility] [address] [id number][place] [address] Mar, [facility] [place] [facility] [address] [id number] [place] [address] Mar, [facility] [address] [id number][place] [address] Mar, [facility] [place] [facility] [address] [id number] [address] Mar, [facility] [place] [facility] [address] [id number][place] [address] Mar, [facility] [place] [facility] [address] [id number][place] [address] Mar, [facility] [place] [facility] [address] [id number], [place] [address] Mar, [facility] [place] [facility] [address] [id number][place] [address] Mar, [facility] [place] [facility] [address] [id number][place] [address] 18 Mar, 2013 [facility] [place] [facility] [address] [id number] [place] [address] 1428 18 Mar, 2013 [facility] [place] [facility] [address] [id number] [place] [address] 14 Mar, 2013 [facility] [place] [facility] [address] [id number] [place] [address]- [address]81 14 Mar, 2013 [facility] [place] [facility] [address] [id number] [place] [address]- [address]65 Mar, [facility] [place] [facility] [address] [id number] [place] [address] Mar, [facility] [place] [facility] [address] [id number] [place] [address] Mar, [facility] [place] [facility] [address] [id number] [place] [address] Mar, [facility] [place] [facility] [address] [id number] [place] [address] Mar, [facility] [place] [facility] [address] [id number] [place] [address] Feb, [facility] [place] [facility] [address] [id number] [place] [address] 6467 18 Feb, 2013 [facility] [place] [facility] [address] [id number] [place] [address] Feb, [facility] [place] [facility] [address] [id number] [place] [address] 16 Feb, 2013 [facility] [place] [facility] [address] [id number] [place] [address]- 47[address] 15 Feb, 2013 [facility] [place] [facility] [address] [id number] [place] [address] Feb, [facility] [place] [facility] [address] [id number] [place] [address] 97[address] Feb, [facility] [place] [facility] [address] [id number] [place] [address] Feb, [facility] [place] [facility] [address] [id number] [place] [address] Feb, [facility] [place] [facility] [address] [id number] [place] [address] 1717 Feb, [facility] [place] [facility] [address] [id number] [place] [address] 164[address] 30 Jan, 2013 [facility] [place] [facility] [address] [id number] [place] [address] 26 Jan, 2013 [facility] [place] [facility] [address] [id number] [place] [address] 24 Jan, 2013 [facility] [place] [facility] [address] [id number] [place] [address]- [address] 23 Jan, 2013 [facility] [place] [facility] [address] [id number] [place] [address]- 0[address] Jan, [facility] [place] [facility] [address] [id number] [place] [address] 7767 Dec, [facility] [place] [facility] [address] [id number] [place] [address]145 Dec, [facility] [place] [facility] [address] [id number] [place] [address]- 1742 Dec, [facility] [place] [facility] [address] [id number] [place] [address]- 2854 Dec, [facility] [place] [facility] [address] [id number] [place] [address] 14 Dec, 2012 [facility] [place] [facility] [address] [id number] [place] [address] Dec, [facility] [place] [facility] [address] [id number] [place] [address] Dec, [facility] [place] [facility] [address] [id number] [place] [address] Nov, [facility] [place] [facility] [address] [id number] [place] [address]46 16 Nov, 2012 [facility] [address] [id number] [place] [address] 15 Nov, 2012 [facility] [address] [id number] [place] [address]- [address] 05 Nov, 2012 [facility] [address] [id number] [place] [address] 25[address] Nov, [facility] [place] [facility] [address] [id number] [place] [address] Oct, [facility] [address] [id number] [place] [address]- [address]101 Oct, [facility] [address] [id number] [place] [address]- 8796 Oct, [facility] [address] [id number] [place] [address]- 45[address] September, [facility] [address] [id number] [place] [address]- 96[address] September, [facility] [address] [id number] [place] [address] 3291 September, [facility] [address] [id number] [place] [address]- 7474 September, [facility] [address] [id number] [place] [address]- 7260 September, [facility] [place] [facility] [address] [id number] [place] [address]- 7[address] September, [facility] [place] [facility] [address] [id number] [place] [address]- 7736 September, [facility] [place] [facility] [address] [id number] [place] [address]- [address] 30 Aug, 2012 [facility] [place] [facility] [address] [id number] [place] [address]- [address] Aug, [facility] [place] [facility] [address] [address] [id number] [place] [address] 11 Aug, 2012 [facility] [place] [facility] [address] [id number] [place] [address] 38[address] 29 Jul, 2012 [facility] [place] [facility] [address] [id number] [place] [address] 2541 27 Jul, 2012 [facility] [place] [facility] [address] [id number] [place] [address] 2548 26 Jul, 2012 [facility] [place] [facility] [address] [id number] [place] [address] 2542 20 Jul, 2012 [facility] [place] [facility] [address] [id number] [place] [address] 0772 18 Jul, 2012 [facility] [place] [facility] [address] [facility] [id number] [place] [address] 0924 18 Jul, 2012 [facility] [place] [facility] [address] [id number] [place] [address] 7108 13 Jul, 2012 [facility] [place] [facility] [address] [id number] [place] [address] 1140 28 Jun, 2012 [facility] [place] [facility] [address] [id number] [place] [address] 8155 27 Jun, 2012 [facility] [place] [facility] [address] [facility] [id number] [place] [address] 7688 22 Jun, 2012 [facility] [place] [facility] [address] [id number] [place] [address]- 2691 20 Jun, 2012 [facility] [place] [facility] [address] [id number] [place] [address]- 2546 15 Jun, 2012 [facility] [place] [facility] [address] [id number] [place] [address]- 2544 15 Jun, 2012 [facility] [place] [facility] [address] [id number] [place] [address]- 2546 13 Jun, 2012 [facility] [place] [facility] [address] [id number] [place] [address]- 2688 Jun, [facility] [address] [id number] [place] [address] 8166 Jun, [facility] [place] [facility] [address] [id number] [place] [address] 3806 Jun, [facility] [address] [id number] [place] [address] 7926 May, [facility] [place] [facility] [address] [id number] [place] [address]- 4247 May, [facility] [address] [id number] [place] [address] 7966 May, [facility] [address] [id number] [place] [address]- 3066 May, [facility] [address] [id number] [place] [address] 8164 May, [facility] [address] [id number] [place] [address]- 8498 May, [facility] [address] [id number] [place] [address]- 3548 31 Apr, 2012 [facility] [address] [id number] [place] [address] 5108 31 Apr, 2012 [facility] [address] [id number] [place] [address] 2546 28 Apr, 2012 [facility] [place] [facility] [address] [id number] [place] [address] 2549 28 Apr, 2012 [facility] [place] [facility] [address] [id number] [place] [address] 2546 26 Apr, 2012 [facility] [place] [facility] [address] [id number] [place] [address] 2546 20 Apr, 2012 [facility] [address] [id number] [place] [address] 2547 Apr, [facility] [place] [facility] [address] [id number] [place] [address]- 9056 Mar, [facility] [place] [facility] [address] [id number] [place] [address]- 0763 Mar, [facility] [place] [facility] [address] [id number] [place] [address]- 4944 Mar, [facility] [place] [facility] [address] [id number] [place] [address], [place] [address]- 5952 Mar, [facility] [place] [facility] [address] [id number] [place] [address]- 9055 Mar, [facility] [place] [facility] [address] [id number] [place] [address]- 6419 Mar, [facility] [place] [facility] [address] [id number] [place] [address] 4319 Mar, [facility] [place] [facility] [address] [id number] [place] [address] 2101 Mar, [facility] [place] [facility] [address] [id number] [place] [address]- 0120 Mar, [facility] [place] [facility] [address] [id number] [place] [address]- 3158 Mar, [facility] [place] [facility] [address] [id number] [place] [address]- 0881 Mar, [facility] [place] [facility] [address] [id number] [place] [address]- 9250 Mar, [facility] [place] [facility] [address] [id number] [place] [address]- 6135 Mar, [facility] [place] [facility] [address] [id number] [place] [address]- 4160 Mar, [facility] [place] [facility] [address] [id number] [place] [address]- 0551 Mar, [facility] [place] [facility] [address] [id number] [place] [address]- 2546 Mar, [facility] [place] [facility] [address] [id number] [place] [address]- 4518 Mar, [facility] [place] [facility] [address] [id number] [place] [address]- 3152 Feb, [facility] [place] [facility] [address] [id number] [place] [address]- 1376 Feb, [facility] [place] [facility] [address] [id number] [place] [address]- 4746 Feb, [facility] [place] [facility] [address] [id number] [place] [address]- 3880 Feb, [facility] [place] [facility] [address] [id number] [place] [address]- 4841 Feb, [facility] [place] [facility] [address] [id number] [place] [address]- 5749 Feb, [facility] [place] [facility] [address] [id number] [place] [address]- 1443 Feb, [facility] [place] [facility] [address] [id number] [place] [address] 1917 Feb, [facility] [place] [facility] [address] [id number] [place] [address]- 5312 Feb, [facility] [place] [facility] [address] [id number] [address] 5116 Feb, [facility] [place] [facility] [address] [id number] [address]- 8749 Feb, [facility] [place] [facility] [address] [id number] [place] [address]- 2837 27 Jan, 2012 [facility] [place] [facility] [address] [id number] [place] [address]- 0154 25 Jan, 2012 [facility] [place] [facility] [address] [id number] [place] [address]- 9278 13 Jan, 2012 [facility] [place] [facility] [address] [id number] [place] [address]- 6087 Jan, [facility] [place] [facility] [address] [id number] [place] [address]- 6426 Jan, [facility] [place] [facility] [address] [id number] [place] [address]- 1001 Dec, [facility] [place] [facility] [address] [id number] [place] [address]- 4949 Dec, [facility] [place] [facility] [address] [id number] [place] [address]- 0233 Dec, [facility] [place] [facility] [address] [id number] [place] [address]- 6906 Dec, [facility] [place] [facility] [address] [id number] [place] [address]- 1520 Dec, [facility] [place] [facility] [address] [id number] [place] [address]- 2663 Dec, [facility] [place] [facility] [address] [id number] [place] [address]- 3449 Dec, [facility] [place] [facility] [address] [id number] [place] [address]- 1498 Dec, [facility] [place] [facility] [address] [id number] [place] [address]- 1269 Nov, [facility] [place] [facility] [address] [id number] [place] [address]- 7427 Nov, [facility] [place] [facility] [address] [id number] [place] [address]- 7229 Nov, [facility] [place] [facility] [address] [id number] [place] [address]- 2612 Nov, [facility] [place] [facility] [address] [id number] [place] [address]- 3056 Nov, [facility] [place] [facility] [address] [id number] [place] [address]- 6679 Oct, [facility] [address] [id number] [place] [address]- 3841 Oct, [facility] [place] [facility] [address] [id number] [place] [address]- 5416 September, [facility] [place] [facility] [address] [id number] [place] [address] September, [facility] [place] [facility] [address] [id number] [place] [address]- 5016 September, [facility] [address] [id number] [place] [address] September, [facility] [place] [facility] [address] [id number] [place] [address] September, [facility] [place] [facility] [address] [id number] [place] [address]- 6779 September, [facility] [place] [facility] [address] [id number] [place] [address]- 6154 September, [facility] [place] [facility] [address] [id number] [place] [address]- 5072 September, [facility] [place] [facility] [address] [id number] [place] [address]- 2605 September, [facility] [place] [facility] [address] [id number] [place] [address]- 8738 September, [facility] [place] [facility] [address] [id number] [place] [address]- 0146 September, [facility] [place] [facility] [address] [id number] [place] [address]- 2258 September, [facility] [place] [facility] [address] [id number] [place] [address]- 8976 September, [facility] [place] [facility] [address] [id number] [place] [address]- 7906 September, [facility] [place] [facility] [address] [id number][place] [address]- 3876 24 Aug, 2011 [facility] [address] [id number] [place] [address]- 9824 20 Aug, 2011 [facility] [place] [facility] [address] [id number] [place] [address]- 4165 13 Aug, 2011 [facility] [address] [id number] [place] [address]- 4326 11 Aug, 2011 [facility] [place] [facility] [address] [id number] [place] [address]- 5607 23 Jul, 2011 [facility] [address] [id number] [place] [address]- 2625 13 Jul, 2011 [facility] [place] [facility] [address] [id number] [place] [address]- 6016 13 Jul, 2011 [facility] [address] [address]- 7883 28 Jun, [address] [facility] [address] [id number] [address] 26 Jun, 2011 [facility] [address] [id number] [place] [address]- 6084 13 Jun, 2011 [facility] [address] [id number] [place] [address]- 1686 10 Jun, 2011 [facility] [address] [id number][place] [address]- 8116 07 Jun, 2011 [facility] [place] [facility] [address] [id number][place] [address]- 8806 07 Jun, 2011 [facility] [place] [facility] [address] [id number] [place] [address]- 1866 03 Jun, 2011 [facility] [place] [facility] [address] [id number] [address]- 0026 02 Jun, 2011 [facility] [place] [facility] [address] [id number][place] [address]- 7591 May, [facility] [place] [facility] [address] [id number] [place] [address]- 5803 30 May, 2011 [facility] [address] [id number] [place] [address]- 2777 May, [facility] [address] [id number] [place] [address]- 7729 May, [facility] [address] [id number] [place] [address]- 4800 May, [facility] [address] [id number] [place] [address]- 5214 May, [facility] [address] [id number] [place] [address]- 7931 May, [facility] [address] [id number] [place] [address]- 2765 May, [facility] [address] [id number] [place] [address]- 8647 May, [facility] [address] [id number] [place] [address]- 7710 May, [facility] [address] [id number] [place] [address]- 9688 May, [facility] [address] [id number] [place] [address]- 2486 May, [facility] [address] [id number] [place] [address]- 8496 May, [facility] [address] [id number] [place] [address]- 9402 May, [facility] [place] [facility] [address] [id number] [place] [address]- 1635 Apr, [facility] [place] [facility] [address] [id number] [place] [address]- 3818 16 Apr, 2011 [facility] [address] [id number] [place] [address]- 0176 05 Apr, 2011 [facility] [place] [facility] [address] [id number] [place] [address]- 6087 17 Mar, 2011 [facility] [place] [facility] [address] [id number] [place] [address]- 5726 Mar, [facility] [place] [facility] [address] [id number] [place] [address]- 0676 31 Feb, 2011 [facility] [place] [facility] [address] [id number] [place] [address]- 5862 Feb, [facility] [place] [facility] [address] [id number] [place] [address]- 8103 Feb, [facility] [place] [facility] [address] [id number] [place]16 20 Feb, 2011 [facility] [place] [facility] [address] [id number] [place] [address]- 9811 Feb, [facility] [place] [facility] [address] [id number] [place] [address]- 0218 28 Apr, 2010 [facility] [place] [facility] [address] [id number] [place] [address]- 6165 22 Apr, 2010 [facility] [place] [facility] [address] [id number] [place] [address]- 6350 16 Apr, 2010 [facility] [place] [facility] [address] [id number][place] [address]- 3203 15 Apr, 2010 [facility] [place] [facility] [address] [id number] [place] [address] 2547 15 Apr, 2010 [facility] [place] [facility] [address] [id number] [place] [address]- 5179 Apr, [facility] [place] [facility] [address] [id number] [place] [address]- 1739 24 Mar, 2010 [facility] [place] [facility] [address] [id number] [place] [address]- 9647 17 Mar, 2010 [facility] [place] [facility] [address] [address]- 6002 17 Mar, 2010 [facility] [address] [address]- 9694 Feb, [facility] [address] [address]- 1140 Feb, [facility] [address] [address]- 4710 Feb, [facility] [address] [address]- 4254 Feb, [facility] [id number] [place] [address]- 4757 Dec, [facility] [id number] [place] [address]- 3410 Dec, [facility] [id number] [place] [address] 25314- 5684 Oct, [facility] [address] [address]- 2732 Mar, [facility] [address] [address]- 3162 Mar, [facility] [address] [address]- 7128 September, IMMUNIZATIONS No Known Immunizations SOCIAL HISTORY Never Assessed REASON FOR VISIT Controlled Med Refill PLAN OF CARE VITAL SIGNS MEDICATIONS Medication Instructions Dosage Frequency Start Date End Date Duration Status Chlordiazepoxide HCl 10 mg Orally Three times [...]
--- OUTSIDE RECORDS SUMMARY | 2017-10-05 15:56 | XMS REPORT ---
Author Author VALERIE ZAVALA [facility] Address [address] [place] [address] Care Team Providers Care Research Subject Name Role Phone VALERIE ZAVALA Unavailable PROBLEMS Type Condition ICD9-CM Code [id number] Code Onset Dates Condition Status SNOMED Code Problem Weight loss R63.4 Active 308944498 Problem Pulmonary emphysema, unspecified emphysema type J43.9 Active 19640156 Problem Insomnia, unspecified type G47.00 Active 888602726 Problem Other emphysema J43.8 Active 67905334 Problem Pain in right knee M25.561 Active 53554069 Problem Anxiety F41.9 Active 07096173 Problem Hypokalemia E87.6 Active 988714029 Problem Generalized anxiety disorder F41.1 Active 36821660 Problem Gastroesophageal reflux disease without esophagitis K21.9 Active 811572174 Problem Post-traumatic stress disorder, chronic F43.12 Active 85074708 Problem Neuropathy G62.9 Active 002085981 Problem Essential hypertension I10 Active 42643179 Problem Right foot pain M79.671 Active 61764615 Problem Back pain M54.9 Active 612052754 Problem UTI symptoms R39.9 Active 08033228 Problem Right low back pain, with sciatica presence unspecified M54.5 Active 929736718 Problem Depression, unspecified depression type F32.9 Active 28341641 Problem Tobacco abuse Z72.0 Active 25953215 Problem Chronic pain G89.29 Active 57403854 Problem Weight decrease R63.4 Active 644123973 Problem Bone pain M89.8X9 Active 48882479 Problem Right upper quadrant abdominal pain R10.11 Active [id number] ALLERGIES No Information SOCIAL HISTORY Never Assessed [...]
--- OUTSIDE RECORDS SUMMARY | 2017-10-05 15:56 | XMS REPORT ---
Author Author VALERIE ZAVALA Organization [facility] Address [address] [place] [address] Care Team Providers Care Field Sales Specialist Name Role Phone VALERIE ZAVALA Unavailable PROBLEMS Type Condition ICD9-CM Code [id number] Code Onset Dates Condition Status SNOMED Code Problem Weight loss R63.4 Active 110389390 Problem Pulmonary emphysema, unspecified emphysema type J43.9 Active 70558177 Problem Insomnia, unspecified type G47.00 Active 882368529 Problem Other emphysema J43.8 Active 81427097 Problem Pain in right knee M25.561 Active 30593235 Problem Anxiety F41.9 Active 37464864 Problem Hypokalemia E87.6 Active 794033478 Problem Generalized anxiety disorder F41.1 Active 20971744 Problem Gastroesophageal reflux disease without esophagitis K21.9 Active 815089828 Problem Post-traumatic stress disorder, chronic F43.12 Active 47436133 Problem Neuropathy G62.9 Active 129722799 Problem Essential hypertension I10 Active 55123817 Problem Right foot pain M79.671 Active 04399565 Problem Back pain M54.9 Active 936759688 Problem UTI symptoms R39.9 Active 89200348 Problem Right low back pain, with sciatica presence unspecified M54.5 Active 799937790 Problem Depression, unspecified depression type F32.9 Active 18823197 Problem Tobacco abuse Z72.0 Active 54502256 Problem Chronic pain G89.29 Active 39778676 Problem Weight decrease R63.4 Active 826762873 Problem Bone pain M89.8X9 Active 80772203 Problem Right upper quadrant abdominal pain R10.11 Active 447291986 ALLERGIES Unknown Allergies SOCIAL HISTORY No smoking Hx information available PLAN OF CARE VITAL SIGNS MEDICATIONS Medication Instructions Dosage Frequency Start Date End Date Duration Status Chlordiazepoxide HCl 10 mg Orally 1 in AM and 1 in afternoon and 2 at hs 1 capsule Active RESULTS No Results PROCEDURES No Known procedures IMMUNIZATIONS No Known Immunizations
--- OUTSIDE RECORDS SUMMARY | 2017-10-05 15:56 | XMS REPORT ---
Author Author BRAYAN WELCH Organization [facility] Address [address] [place] [address] Care Team Providers Care Piercing Specialist Name Role Phone YURIBRAYAN STEINER Unavailable PROBLEMS Type Condition ICD9-CM Code GSB60-PQ Code Onset Dates Condition Status SNOMED Code Problem Weight loss R63.4 Active 419543704 Problem Pulmonary emphysema, unspecified emphysema type J43.9 Active 33631073 Problem Insomnia, unspecified type G47.00 Active 083537447 Problem Other emphysema J43.8 Active 25842992 Problem Right foot pain M79.671 Active 02165208 Problem Neuropathy G62.9 Active 063723332 Problem Hypokalemia E87.6 Active 718369763 Problem Generalized anxiety disorder F41.1 Active 66826002 Problem Gastroesophageal reflux disease without esophagitis K21.9 Active 857534653 Problem Essential hypertension I10 Active 24247969 Problem Anxiety F41.9 Active 10985386 Problem Post-traumatic stress disorder, chronic F43.12 Active 37370546 Problem UTI symptoms R39.9 Active 77009642 Problem Bone pain M89.8X9 Active 01446345 Problem Right low back pain, with sciatica presence unspecified M54.5 Active 584716935 Problem Pain in right knee M25.561 Active 22632953 Problem Depression, unspecified depression type F32.9 Active 07561931 Problem Weight decrease R63.4 Active 160138255 Problem Back pain M54.9 Active 916472759 Problem Tobacco abuse Z72.0 Active 49442168 Problem Chronic pain G89.29 Active 13789614 Problem Right upper quadrant abdominal pain R10.11 Active 813760808 ALLERGIES Unknown Allergies SOCIAL HISTORY No smoking Hx information available PLAN OF CARE Activity Details Follow Up prn Reason:Depression VITAL SIGNS MEDICATIONS Unknown Medications RESULTS No Results PROCEDURES Procedure Date Ordered Related Diagnosis Body Site Psychotherapy, patient &/family, 30 minutes, established patient May 02, 2016 IMMUNIZATIONS No Known Immunizations
--- OUTSIDE RECORDS SUMMARY | 2017-10-05 15:57 | XMS REPORT ---
Author Author VALERIE ZAVALA [facility] Address [address] [place] [address] Care Team Providers Care Systems Management Consultant Name Role Phone VALERIE ZAVALA Unavailable PROBLEMS Type Condition ICD9-CM Code BJY63-CO Code Onset Dates Condition Status SNOMED Code Problem Insomnia, unspecified type G47.00 Active 168125067 Problem Post-traumatic stress disorder, chronic F43.12 Active 59756648 Problem Pulmonary emphysema, unspecified emphysema type J43.9 Active 26080658 Problem Panic attacks F41.0 Active 268617382 Problem UTI symptoms R39.9 Active 88321414 Problem Other emphysema J43.8 Active 28083271 Problem Pain in right knee M25.561 Active 89962622 Problem Hypokalemia E87.6 Active 216098805 Problem Essential hypertension I10 Active 39217072 Problem Gastroesophageal reflux disease without esophagitis K21.9 Active 478051775 Problem Anxiety F41.9 Active 13480388 Problem Neuropathy G62.9 Active 962849367 Problem Back pain M54.9 Active 166861295 Problem Chronic pain G89.29 Active 94635013 Problem Right low back pain, with sciatica presence unspecified M54.5 Active 760570534 Problem Right foot pain M79.671 Active 25064571 Problem Tobacco abuse Z72.0 Active 40533980 Problem Weight decrease R63.4 Active 672943692 Problem Bone pain M89.8X9 Active 60844156 Problem Right upper quadrant abdominal pain R10.11 Active 107355594 Problem Generalized anxiety disorder F41.1 Active 82123329 Problem Depression, unspecified depression type F32.9 Active 86797531 Problem Weight loss R63.4 Active 828506166 ALLERGIES No Information SOCIAL HISTORY Never Assessed [...]
--- OUTSIDE RECORDS SUMMARY | 2017-10-05 15:57 | XMS REPORT ---
Author Author VALERIE ZAVALA Organization [facility] Address [address] [place] [address] Care Team Providers Care Mechanical Engineering Director Name Role Phone VALERIE ZAVALA Unavailable PROBLEMS Type Condition ICD9-CM Code WBS79-[place] Code Onset Dates Condition Status SNOMED Code Problem Generalized anxiety disorder F41.1 Active 12132591 Problem Hypokalemia E87.6 Active 278962459 Problem Pulmonary emphysema, unspecified emphysema type J43.9 Active 83654590 Problem Right low back pain, with sciatica presence unspecified M54.5 Active 635277382 Problem Post-traumatic stress disorder, chronic F43.12 Active 32005178 Problem Pain in right knee M25.561 Active 63881513 Problem Gastroesophageal reflux disease without esophagitis K21.9 Active 184096622 Problem Neuropathy G62.9 Active 819943168 Problem Essential hypertension I10 Active 78455371 Problem Generalized abdominal pain R10.84 Active 012442642 Problem Kidney stones N20.0 Active 85097092 Problem Back pain M54.9 Active 602148452 Problem Right foot pain M79.671 Active 83718801 Problem UTI symptoms R39.9 Active 14243618 Problem Other emphysema J43.8 Active 67146731 Problem Anxiety F41.9 Active 06115267 Problem Renal calculus, right N20.0 Active 50549341 Problem Panic attacks F41.0 Active 406281917 Problem Depression, unspecified depression type F32.9 Active 16445111 Problem Weight decrease R63.4 Active 712168737 Problem Chronic pain G89.29 Active 50139342 Problem Bone pain M89.8X9 Active 11451007 Problem Weight loss R63.4 Active 142819071 Problem Insomnia, unspecified type G47.00 Active 343452205 Problem Tobacco abuse Z72.0 Active 93215831 Problem Right upper quadrant abdominal pain R10.11 Active 202893019 ALLERGIES No Information ENCOUNTERS Encounter Location Date Diagnosis [facility] [address] [address] September, [facility] [id number] [place] [address] 92757- 2835 Aug, [facility] [address] [address] 0[address] Aug, [facility] [id number] [place] [address] 08919- 9523 Jul, [facility] [id number] [place] [address] 60497- 3461 Jul, Renal calculus, right N20.0 and Medicare welcome exam Z00.00 [facility] [address] [address] Jul, Dysuria R30.0 and Renal calculus, right N20.0 [facility] [id number] [place] [address] 47482- 3663 Jul, Medicare welcome exam Z00.00 [facility] [id number] [place] [address] 39359- 8727 Jun, Gastroesophageal reflux disease without esophagitis K21.9 and Generalized abdominal pain R10.84 [facility] [address] [address] Jun, Medicare welcome exam Z00.00 [facility] [address] [address] 9[address] Jun, [facility] [address] [address] 7[address] Jun, Medicare welcome exam Z00.00 and Encounter for screening mammogram for malignant neoplasm of breast Z12.31 [facility] [address] [address] 02 Jun, 2017 Chronic pain G89.29 [facility] [id number] [place] [address] 44508- 3532 May, [facility] [address] [address]- 8842 May, Pelvic pain R10.2 [facility] [id number] [place] [address] 59677- 1253 May, Pelvic pain R10.[address] [facility] [address] [address] May, Renal calculus, right N20.0 [facility] [address] [address]- 8730 May, Hematuria, unspecified type R31.9 and Nephrolithiasis N20.0 [facility] IN [facility] [address] [address]4 -[address]05 May, Dysuria R30.0 and Nephrolithiasis N20.0 [facility] [id number] [place] [address] 30158- 4755 May, [facility] [id number] [place] [address] 68005 -8133 May, Abdominal pain R10.9 and Kidney stone N20.0 [facility] [id number] [place] [address] 24302- 3059 May, [facility] [id number] [place] [address] 01652- 1243 May, Chronic pain G89.29 and Panic attacks F41.0 [facility] [id number] [place] [address] 98821- 2838 May, Urinary tract infection without hematuria, site unspecified N39.0 [facility] [id number] [place] [address] 13583- 2887 Apr, Right lower quadrant abdominal pain R10.31 and Abnormal serum lipase level R74.8 [facility] [id number] [place] [address] 92316- 6480 Apr, Recurrent urinary tract infection N39.0 [facility] [id number] [place] [address] 86236- 1262 Apr, UTI symptoms R39.9 ; Recurrent urinary tract infection N39.0 and Pelvic pain R10.2 [facility] [address] [address]- 7290 Apr, Chronic pain G89.29 and Panic attacks F41.0 [facility] [address] [address] 1099 Apr, Dysuria R30.0 [facility] [id number] [place] [address] 80325- 4514 Apr, [facility] [address] [place] [address] 63693- 1204 Apr, Dysuria R30.0 and Urinary tract infection without hematuria , site unspecified N39.0 [facility] [address] [address]- 1263 Mar, UTI symptoms R39.9 [facility] [address] [address]- 7579 Mar, [facility] [address] [address]- 7035 Mar, Panic attacks F41.0 and Chronic pain G89.29 [facility] [address] [address] 0913 Mar, [facility] [address] [address]- 0560 Mar, Dysuria R30.0 [facility] [address] [address] 2542 08 Mar, 2017 Dysuria R30.0 [facility] [address] [address]- 9268 Feb, Chronic pain G89.29 ; Shortness of breath R06.02 ; Weight loss R63.4 ; Encounter for immunization Z23 ; Bone pain M89.8X9 ; Right anterior knee pain M25.561 and Cough R05 [facility] [id number] [place] [address] 65272- 5896 Feb, Shortness of breath R06.02 [facility] [address] 26338- 0826 Feb, [facility] [address] 07638- 6023 Feb, Panic attacks F41.0 and Chronic pain G89.29 [place] [facility] [address] 46867- 1521 Feb, [facility] [address] 45796- 5385 Feb, Panic attacks F41.0 ; Shortness of breath R06.02 and Encounter for immunization Z23 [facility] [address] 21953- 7651 Jan, [facility] [address] 23789- 8856 Jan, Anxiety F41.9 and Chronic pain G89.29 [facility] [address] 69686- 1268 Dec, Anxiety F41.9 and Chronic pain G89.29 [facility] [address] 27093- 2101 Nov, Chronic pain G89.29 [facility] [address] 85738- 0093 Nov, Anxiety F41.9 [facility] [address] 56967- 7995 Nov, Chronic pain G89.29 ; Essential hypertension I10 and Other emphysema J43.8 [facility] [id number] [place] [address] 56434- 4147 Oct, Anxiety F41.9 [facility] [id number] [place] [address] 92537- 9401 Oct, [facility] [id number] [place] [address] 42749- 3090 Oct, Chronic pain G89.29 [facility] [id number] [place] [address] 51473- 0108 September, Recurrent UTI N39.0 ; Neuropathy G62.9 and Anxiety F41.9 [facility] [id number] [place] [address] 57351- 6413 September, [facility] [id number] [place] [address] 21684- 4240 September, Chronic pain G89.29 [facility] [id number] [place] [address] 44959- 0730 September, [facility] [id number] [place] [address] 08138- 9663 Aug, Post-traumatic stress disorder, chronic F43.12 ; Chronic urinary tract infection N39.0 ; Gastroesophageal reflux disease without esophagitis K21.9 ; Chronic pain G89.29 ; Essential hypertension I10 and Tobacco abuse Z72.0 [facility] [address] [place] [address] 30054 -6384 Aug, [facility] [id number] [place] [address] 21812- 1705 Aug, Chronic pain G89.29 [facility] [id number] [place] [address] 61588- 3281 Aug, Insomnia, unspecified type G47.00 [facility] [id number] [place] [address] 07121- 6907 Aug, [facility] [id number] [place] [address] 76871- 9947 Jul, Chronic pain G89.29 [facility] [address] [address]- 0513 Jul, [facility] [address] [address]- 1228 Jul, [facility] [id number] [place] [address] 99631- 2014 Jul, [facility] [id number] [place] [address] 87864- 5218 15 Jul, 2016 Recurrent UTI (urinary tract infection) N39.0 [facility] [id number] [place] [address] 24333- 1514 Jul, [facility] [id number] [place] [address] 25563- 2975 Jun, Chronic pain G89.29 [facility] [address] [place] [address] 47308- 3947 Jun, [facility] [id number] [place] [address] 34951- 1757 Jun, [facility] [id number] [place] [address] 20483- 9538 May, Chronic pain G89.29 [facility] [address] [place] [address] 33702- 7681 May, Weight loss R63.4 and Shortness of breath R06.02 [facility] [address] [address]- 9446 May, Chronic pain G89.29 ; Weight loss R63.4 and Tobacco abuse Z72.0 [facility] [address] [address]- 7913 May, [facility] [address] [address]- 3821 19 Jack, 2017 Hypoxia R09.02 [facility] [id number] [place] [address] 80861- 1169 May, [facility] [address] 85465- 6518 May, Pulmonary emphysema, unspecified emphysema type J43.9 [facility] [address] 22572 -4455 May, [facility] [address] 60145- 5562 May, [facility] [address] 91811- 8728 May, [place] [facility] [address] 01054- 1222 May, Chronic pain G89.29 ; Encounter for immunization Z23 ; Right anterior knee pain M25.561 and Cough R05 [facility] [id number] [place] [address] 95726- 9986 Apr, Chronic pain G89.29 [facility] [address] 31857- 6878 Apr, [facility] [id number] [place] [address] 42237- 6899 Apr, Generalized anxiety disorder F41.1 and Depression, unspecified depression type F32.9 [facility] [id number] [place] [address] 44084- 5132 Apr, Chronic pain G89.29 ; Hypokalemia E87.6 and Insomnia, unspecified type G47.00 [place] [facility] [address] 15757- 6750 Apr, [place] [facility] [address] 25856- 0374 Apr, Chronic pain G89.29 [place] [facility] [address] 07916- 8949 Apr, [facility] [address] [facility] [id number] [place] [address]- 8602 Mar, [facility] [address] [facility] [id number] [place] [address]- 8065 Mar, Insomnia, unspecified type G47.00 [facility] [address] [facility] [id number] [place] [address]- 4423 Mar, Chronic pain G89.29 [facility] [address] [id number] [place] [address]- 7805 Mar, [facility] [address] [facility] [id number] [place] [address], [place] [address]- 2681 Feb, [facility] [address] [facility] [id number] [place] [address]- 7346 Feb, [facility] [id number] [place] [address], [place] [address]- 1914 Feb, [facility] [address] [facility] [id number] [place] [address]- 5857 Feb, [facility] [address] [facility] [id number] [place] [address]- 5119 Feb, [facility] [address] [facility] [id number] [place] [address]- 2778 29 Jan, 2015 [facility] [address] [facility] [id number] [place] [address]- 2109 26 Sep, 2015 [facility] [address] [id number] [place] [address]- 2540 20 Sep, 2015 [facility] [place] [facility] [address] [facility] [id number] [place] [address]- 1381 13 Sep, 2015 [facility] [address] [facility] [id number] [place] [address]- 9746 12 Sep, 2015 [facility] [address] [facility] [id number] [place] [address]- 9764 07 Sep, 2016 Chronic pain G89.29 [facility] [id number] [place] [address] 59737- 9641 Jan, Chronic pain G89.29 and Fibromyalgia M79.7 [facility] [id number] [place] [address] 29954- 9438 Dec, Depression, unspecified depression type F32.9 and Generalized anxiety disorder 300.02 [facility] [id number] [place] [address] 30669- 3269 Dec, Dysthymia F34.1 ; Insomnia, unspecified type G47.00 and Chronic pain G89.29 [facility] [id number] [place] [address] 45182- 8367 Dec, Chronic pain G89.29 [facility] [id number] [place] [address] 38455- 0579 Dec, Insomnia, unspecified type G47.00 [facility] [id number] [place] [address] 67722- 0837 Dec, Fibromyalgia M79.7 and Chronic pain G89.29 [facility] [id number] [place] [address] 09758- 4826 Dec, [facility] [id number] [place] [address] 77967- 7503 Dec, [facility] [id number] [place] [address] 55873- 6884 Dec, [facility] [id number] [place] [address] 90278- 6482 Dec, [facility] [id number] [place] [address] 32551- 4609 Dec, Chronic pain G89.29 [facility] [id number] [place] [address] 93766- 1149 Dec, [facility] [id number] [place] [address] 28350- 2042 Dec, [facility] [id number] [place] [address] 13027- 2766 Dec, [facility] [id number] [place] [address] 81132- 2477 Dec, Chronic pain G89.29 and Dysthymia F34.1 [facility] [id number] [place] [address] 14489- 2057 Nov, [facility] [id number] [place] [address] 93530- 2749 Nov, Hypokalemia E87.6 and Chronic pain G89.29 [facility] [id number] [place] [address] 18455- 1074 Nov, Back pain M54.9 and Pain in right knee M25.561 [facility] [facility] [id number] [place] [address] 01398- 6204 Nov, [facility] [id number] [place] [address] 54710- 8525 Nov, Chronic pain G89.29 [facility] [id number] [place] [address] 64162- 5696 Nov, Chronic pain G89.29 ; Weight loss R63.4 ; Bone pain M89.8X9 and Insomnia, unspecified type G47.00 [facility] [id number] [place] [address] 03774- 1535 Nov, Chronic pain G89.29 [facility] [id number] [place] [address] 99752- 9685 Nov, Chronic pain G89.29 [facility] [id number] [place] [address] 98986- 1075 Oct, Chronic pain G89.29 [facility] [id number] [place] [address] 11106- 3673 Oct, UTI symptoms R39.9 [facility] [address] [address]- 4110 Oct, Chronic pain G89.29 [facility] [id number] [place] [address] 12810- 8302 Oct, Chronic pain G89.29 [facility] [id number] [place] [address] 07837- 7442 Oct, Chronic pain G89.29 [facility] [id number] [place] [address] 75734- 5733 Oct, Right upper quadrant abdominal pain R10.11 [facility] [id number] [place] [address] 90797- 0719 Oct, Chronic pain G89.29 [facility] [id number] [place] [address] 13510- 5919 Oct, [facility] [id number] [place] [address] 43414- 1977 September, Chronic pain G89.29 [facility] [id number] [place] [address] 85604- 4278 September, Dysuria R30.0 and Urinary tract infection without hematuria , site unspecified N39.0 [facility] [address] [address]- 7283 September, [facility] [id number] [place] [address] 50431- 9184 September, Dysuria R30.0 [facility] [id number] [place] [address] 00256- 4292 September, Chronic pain G89.29 [facility] [id number] [place] [address] 00776- 8494 September, Chronic pain G89.29 and Essential hypertension I10 [facility] [id number] [place] [address] 67876- 7912 September, [facility] [id number] [place] [address] 04714- 3678 September, [facility] [id number] [place] [address] 21111- 6858 September, [facility] [id number] [place] [address] 43199- 0999 Aug, UTI symptoms R39.9 [facility] [id number] [place] [address] 69580- 5849 Aug, Dysuria R30.0 [facility] [id number] [place] [address] 26812- 0619 Aug, [facility] [id number] [place] [address] 47893- 0771 Aug, [facility] [id number] [place] [address] 15136- 8148 Aug, [facility] [id number] [place] [address] 95088- 6788 Aug, Chronic pain G89.29 [facility] [id number] [place] [address] 16139- 3545 Aug, Dysthymia F34.1 [facility] [id number] [place] [address] 91034- 8623 Aug, Conjunctivitis, unspecified conjunctivitis type, unspecified laterality H10.9 [facility] [id number] [place] [address] 06065- 4630 Jul, Chronic pain G89.29 ; Back pain M54.9 ; Tobacco abuse Z72.0 and Weight decrease R63.4 [facility] [id number] [place] [address] 74323- 8818 Jul, [facility] [id number] [place] [address] 92922- 0558 Jul, [facility] [id number] [place] [address] [place] [address]- 6626 24 Jul, 2015 Chronic pain G89.29 [facility] [address] [address]- 4457 22 Jul, 2015 [facility] [address] [address]- 3880 21 Jul, 2015 [facility] [id number] [place] [address]- [address] 18 Jul, 2015 [facility] [id number] [place] [address]- [address] 17 Jul, 2015 [facility] [id number] [place] [address]- 1029 17 Jul, 2015 Chronic pain G89.29 [facility] [id number] [place] [address]- [address] 16 Jul, 2015 Chronic pain G89.29 [facility] [id number] [place] [address]- 8436 15 Jul, 2015 [facility] [address] [address] Jul, [facility] [address] [address] Jul, [facility] [address] [address] Jul, [facility] [address] [address] Jun, [facility] [address] [address] Jun, Depression, unspecified depression type F32.9 [facility] [address] [address] 26 Jun, 2015 Pain in right knee M25.561 [facility] [address] [address] Jun, Chronic pain G89.29 ; Back pain M54.9 ; Bone pain M89.8X9 and Weight loss R63.4 [address] [place] [address] [address] Jun, [facility] [id number] [place] [address]- [address] May, [facility] [address] [address] May, UTI symptoms R39.9 ; Pain in right knee M25.561 ; Right low back pain, with sciatica presence unspecified M54.5 ; Right foot pain M79.671 ; Hypokalemia E87.6 and Screening, lipid Z13.220 [place] [address] [address] May, [place] [address] [address] May, [facility] [address] [address] Mar, [place] [id number] [place] [address] 70409- 6789 Mar, [place] [id number] [place] [address] 56972- 7316 Mar, Hypokalemia E87.6 [place] [address] [address]- 1989 Mar, Encounter for immunization Z23 ; Pain in right leg M79.604 ; Pain in right knee M25.561 and Hypokalemia E87.6 [place] [id number] [place] [address] 64285- 2924 Jan, [place] [id number] [place] [address] 52900- 8492 Jan, [facility] [address] [place] [address]- 1820 Jan, Abdominal pain, generalized 789.07 [facility] [id number] [place] [address] 031243- 7983 Jan, Abdominal pain, generalized 789.07 [facility] [address]005[address] [address] 4676 Dec, [facility] [id number] [place] [address] 332861- 3846 Dec, [facility] [id number] [place] [address] 73053- 4330 Dec, [facility] [id number] [place] [address] 46236- 5868 Nov, Hallux valgus 735.0 and Hammertoe 735.4 [facility] [id number] [place] [address] 89103- 8046 Nov, [facility] [address] [address] 0197 Nov, Hallux valgus 735.0 and Hammer toe 735.4 [facility] [address]005[address] [address] 3866 Oct, [facility] [address] [address]- 4739 Oct, [facility] [address] [address]- 9439 Oct, Pre-op evaluation V72.84 [facility] [address]005[address] [address]- 1525 Oct, [facility] [id number] [place] [address] 46994- 4326 Oct, [facility] [address] [address]- 0029 September, [facility] [address] [id number] [address]- 7477 September, [facility] [address] [address]- 9025 September, Hallchaz valgus (acquired) 735.0 and Other hammer toe ( acquired) 735.4 [facility] [address] [facility] [id number] [place] [address]- 5798 Aug, [facility] [place] [facility] [address] [facility] [id number] [address]- 6946 Aug, [facility] [place] [facility] [address] [facility] [id number] [place] [address]- 1579 Jul, [facility] [place] [facility] [id number] [address]- 5287 Jul, [facility] [address] [address]- 5107 Jul, [facility] [place] [facility] [address]005[address] [address]- 2373 Jul, [facility] [place] [facility] [address]65[address] [place] [address]- 6434 Jul, [facility] [place] [facility] [address]005[address] [address]- 2505 Jul, [facility] [place] [facility] [address] [address]- 5566 Jul, [facility] [place] [facility] [address] [id number] [address]- 2641 Jul, [facility] [place] [facility] [address] [id number] [place] [address]- 0679 Jun, [facility] [place] [facility] [address] [facility] [id number] [address]- 6555 Jun, [facility] [place] [facility] [address] [id number] [place] [address]- 6153 Jun, [facility] [place] [facility] [address] [id number] [place] [address]- 8262 Jun, 2014 [facility] [place] [facility] [address] [id number] [place] [address]- 8562 Jun, 2014 [facility] [place] [facility] [address] [id number] [place] [address]- 9254 Jun, 2014 [facility] [place] [facility] [address] [id number] [place] [address]- 8422 Jun, 2014 [facility] [place] [facility] [address] [id number] [place] [address]- 9874 Jun, 2014 [facility] [place] [facility] [address] [id number] [place] [address]- 5800 Jun, [facility] [place] [facility] [address] [id number] [place] [address]- 7097 Jun, [facility] [place] [facility] [address] [id number] [place] [address]- 9623 May, [facility] [place] [facility] [address] [id number] [place] [address]- 8106 May, [facility] [place] [facility] [address] [id number] [place] [address]- 6888 May, [facility] [place] [facility] [address] [id number] [place] [address]- 2485 May, [facility] [place] [facility] [address] [id number] [place] [address]- 4654 May, [facility] [place] [facility] [address] [id number] [place] [address]- 0394 May, [facility] [place] [facility] [address] [id number] [place] [address]- 5220 May, [facility] [place] [facility] [address] [id number] [place] [address]- 2159 May, [facility] [place] [facility] [address] [id number] [address]- 4859 May, [facility] [address] [id number] [place] [address]- 1105 May, [facility] [place] [facility] [address] [id number] [place] [address]- 1102 May, [facility] [place] [facility] [address] [id number] [place] [address]- 0434 May, [facility] [place] [facility] [address] [id number] [place] [address]- 2819 May, [facility] [place] [facility] [address] [id number] [place] [address]- 5674 May, [facility] [place] [facility] [address] [id number] [place] [address]- 1164 May, [facility] [place] [facility] [address] [id number] [place] [address]- 8075 May, [facility] [place] [facility] [address] [id number] [place] [address]- 3273 May, [facility] [place] [facility] [address] [id number] [place] [address]- 7639 May, [facility] [place] [facility] [address] [id number] [place] [address]- 1938 Apr, [facility] [place] [facility] [address] [id number] [place] [address]- 3739 Apr, [facility] [place] [facility] [address] [id number] [place] [address]- 2947 Apr, [facility] [place] [facility] [address] [id number] [place] [address]- 2879 Apr, [facility] [place] [facility] [address] [id number] [place] [address]- 0913 Apr, [facility] [place] [facility] [address] [id number] [place] [address]- 1460 Apr, [facility] [place] [facility] [address] [id number] [place] [address]- 9042 Apr, [facility] [place] [facility] [address] [id number] [place] [address]- 0231 Apr, [facility] [place] [facility] [address] [id number] [place] [address]- 0932 Apr, [facility] [place] [facility] [address] [id number] [place] [address]- 6635 Mar, [facility] [place] [facility] [address] [id number] [place] [address]- 0072 Mar, [facility] [place] [facility] [address] [id number] [place] [address]- 5349 Mar, [facility] [place] [facility] [address] [id number] [place] [address]- 8670 Mar, [facility] [place] [facility] [address] [id number] [place] [address]- 6391 Mar, [facility] [place] [facility] [address] [id number] [place] [address]- 3809 Feb, [facility] [place] [facility] [address] [id number] [place] [address]- 5008 Feb, [facility] [place] [facility] [address] [id number] [place] [address]- 0618 Feb, [facility] [place] [facility] [address] [id number] [place] [address]- 7885 Feb, [facility] [place] [facility] [address] [id number] [place] [address]- 9111 Feb, [facility] [place] [facility] [address] [id number] [place] [address]- 3624 Feb, [facility] [place] [facility] [address] [id number] [place] [address]- 3188 Feb, [facility] [place] [facility] [address] [id number] [place] [address]- 3356 Feb, [facility] [place] [facility] [address] [id number] [place] [address]- 0768 Feb, 2013 [facility] [place] [facility] [address] [id number] [place] [address]- 3474 Feb, 2013 [facility] [place] [facility] [address] [id number] [place] [address]- 7069 Feb, 2013 [facility] [place] [facility] [address] [id number] [place] [address]- 6511 Feb, 2013 [facility] [place] [facility] [address] [id number] [place] [address]- 8478 Feb, [facility] [place] [facility] [address] [id number] [place] [address]- 6415 Feb, [facility] [place] [facility] [address] [id number] [place] [address]- 2182 Feb, [facility] [place] [facility] [address] [id number] [place] [address]- 0617 Feb, [facility] [place] [facility] [address] [id number] [place] [address]- 8885 23 Jan, 2013 [facility] [place] [facility] [address] [id number] [address]- 3334 23 Jan, 2013 [facility] [place] [facility] [address] [id number] [place] [address]- 7852 20 Jan, 2013 [facility] [place] [facility] [address] [id number] [address]- 3274 19 Sep, 2013 [facility] [place] [facility] [address] [id number] [place] [address]- 4146 11 Sep, 2013 [facility] [place] [facility] [address] [id number] [address]- 2538 11 Jan, 2013 [facility] [place] [facility] [address] [id number] [place] [address]- 7176 03 Sep, 2013 [facility] [place] [facility] [address] [id number] [place] [address]- 6418 Jan, [facility] [place] [facility] [address] [id number] [place] [address]- 2547 Dec, [facility] [place] [facility] [address] [id number] [place] [address]- 1537 Dec, [facility] [place] [facility] [address] [id number] [place] [address]- 9505 Nov, [facility] [place] [facility] [address] [id number] [place] [address]- 8805 Nov, [facility] [place] [facility] [address] [id number] [place] [address]- 2892 Nov, [facility] [place] [facility] [address] [id number] [place] [address]- 8851 Nov, [facility] [place] [facility] [address] [id number] [place] [address]- 8669 Nov, [facility] [place] [facility] [address] [id number] [place] [address]- 3623 Nov, [facility] [place] [facility] [address] [id number] [place] [address]- 1935 Nov, [facility] [place] [facility] [address] [id number] [place] [address]- 3161 Nov, [facility] [place] [facility] [address] [id number] [place] [address]- 7414 Nov, [facility] [place] [facility] [address] [id number] [place] [address]- 0837 Oct, [facility] [place] [facility] [address] [id number] [place] [address]- 5065 Oct, [facility] [place] [facility] [address] [id number] [place] [address]- 9617 Oct, [facility] [place] [facility] [address] [id number] [place] [address]- 1584 Oct, [facility] [place] [facility] [address] [id number] [place] [address]- 9188 Oct, [facility] [place] [facility] [address] [id number] [place] [address]- 8642 Oct, [facility] [place] [facility] [address] [id number] [place] [address]- 6882 September, [facility] [place] [facility] [address] [id number] [place] [address]- 9030 September, [facility] [place] [facility] [address] [id number] [place] [address]- 9705 September, [facility] [place] [facility] [address] [id number] [place] [address]- 4033 September, [facility] [place] [facility] [address] [id number] [place] [address]- 9481 September, [facility] [place] [facility] [address] [id number] [place] [address]- 0847 September, [facility] [place] [facility] [address] [id number] [place] [address]- 3556 September, [facility] [place] [facility] [address] [id number] [place] [address]- 8144 September, [facility] [place] [facility] [address] [id number] [place] [address]- 8647 September, [facility] [place] [facility] [address] [id number] [place] [address]- 7150 September, [facility] [place] [facility] [address] [id number] [place] [address]- 4385 September, [facility] [place] [facility] [address] [id number] [place] [address]- 2532 September, [facility] [place] [facility] [address] [id number] [place] [address]- 8008 September, [facility] [place] [facility] [address] [id number] [place] [address]- 2335 September, [facility] [place] [facility] [address] [id number] [place] [address]- 9373 September, [facility] [place] [facility] [address] [id number] [place] [address]- 2219 September, [facility] [place] [facility] [address] [id number] [place] [address]- 4313 September, [facility] [place] [facility] [address] [id number] [place] [address]- 4060 September, [facility] [place] [facility] [address] [id number] [place] [address]- 7775 September, [facility] [place] [facility] [address] [id number] [place] [address]- 5481 September, [facility] [place] [facility] [address] [id number] [place] [address]- 8342 Aug, [facility] [place] [facility] [address] [id number] [place] [address]- 4272 Aug, [facility] [place] [facility] [address] [id number] [place] [address]- 3954 Aug, [facility] [place] [facility] [address] [id number] [place] [address]- 7992 Aug, [facility] [place] [facility] [address] [id number] [place] [address]- 0437 Aug, [facility] [place] [facility] [address] [id number] [place] [address]- 3636 18 Aug, 2013 [facility] [place] [facility] [address] [id number] [place] [address]- 4250 16 Aug, 2013 [facility] [place] [facility] [address] [id number] [place] [address]- 7284 16 Aug, 2013 [facility] [place] [facility] [address] [id number] [place] [address]- 8793 15 Aug, 2013 [facility] [place] [facility] [address] [id number] [place] [address]- 5040 15 Aug, 2013 [facility] [address] [id number] [place] [address]- 6472 14 Aug, 2013 [facility] [place] [facility] [address] [id number] [place] [address]- 8736 05 Aug, 2013 [facility] [address] [id number] [place] [address]- 5734 05 Aug, 2013 [facility] [place] [facility] [address] [id number] [place] [address]- 8173 Aug, [facility] [place] [facility] [address] [id number] [place] [address]- 4005 Aug, [facility] [place] [facility] [address] [id number] [place] [address]- 1060 Jul, [facility] [place] [facility] [address] [id number] [place] [address]- 1689 Jul, [facility] [address] [id number] [place] [address]- 4087 Jul, [facility] [place] [facility] [address] [id number] [place] [address]- 7405 27 Jul, 2013 [facility] [address] [id number] [place] [address]- 0200 Jul, [facility] [place] [facility] [address] [id number] [place] [address]- 6035 20 Jul, 2013 [facility] [place] [facility] [address] [id number] [place] [address]- 9946 18 Jul, 2013 [facility] [place] [facility] [address] [id number] [place] [address]- 7897 18 Jul, 2013 [facility] [place] [facility] [address] [id number] [place] [address]- 6509 06 Jul, 2013 [facility] [place] [facility] [address] [id number] [place] [address]- 3059 06 Jul, 2013 [facility] [place] [facility] [address] [id number] [place] [address]- 2041 Jul, [facility] [place] [facility] [address] [id number] [place] [address]- 1385 Jul, [facility] [place] [facility] [address] [id number] [place] [address]- 5243 Jul, [facility] [place] [facility] [address] [id number] [place] [address]- 9371 Jul, [facility] [place] [facility] [address] [id number] [place] [address]- 2813 Jul, [facility] [place] [facility] [address] [id number] [place] [address]- 8920 Jun, [facility] [place] [facility] [address] [id number] [place] [address]- 2335 Jun, [facility] [place] [facility] [address] [id number] [place] [address]- 6019 Jun, [facility] [place] [facility] [address] [id number] [place] [address]- 0015 Jun, [facility] [place] [facility] [address] [id number] [place] [address]- 4838 Jun, [facility] [place] [facility] [address] [id number] [place] [address]- 3151 Jun, [facility] [place] [facility] [address] [id number] [address]- 4315 May, [facility] [place] [facility] [address] [id number] [place] [address]- 2979 May, [facility] [place] [facility] [address] [id number] [place] [address]- 7406 May, [facility] [place] [facility] [address] [id number] [place] [address]- 8237 May, [facility] [place] [facility] [address] [id number] [place] [address]- 1012 May, [facility] [address] [id number] [place] [address]- 7373 May, [facility] [place] [facility] [address] [id number] [place] [address]- 1430 May, [facility] [place] [facility] [address] [id number] [place] [address]- 4146 May, [facility] [place] [facility] [address] [id number] [place] [address]- 5840 May, [facility] [place] [facility] [address] [id number] [place] [address]- 9927 May, [facility] [place] [facility] [address] [id number] [place] [address]- 6559 May, [facility] [address] [id number] [place] [address]- 5195 May, [facility] [place] [facility] [address] [id number] [place] [address]- 4578 May, [facility] [place] [facility] [address] [id number] [place] [address]- 2557 May, [facility] [place] [facility] [address] [id number] [place] [address]- 3285 May, [facility] [place] [facility] [address] [id number] [place] [address]- 2266 Apr, [facility] [place] [facility] [address] [id number] [place] [address]- 3276 Apr, [facility] [place] [facility] [address] [id number] [place] [address]- 6346 Apr, [facility] [place] [facility] [address] [id number] [place] [address]- 6325 Apr, [facility] [place] [facility] [address] [id number] [place] [address]- 0463 Apr, [facility] [place] [facility] [address] [id number] [place] [address]- 0823 Apr, [facility] [address] [id number] [place] [address] Apr, [facility] [address] [id number] [place] [address] Apr, [facility] [address] [id number] [place] [address] Apr, [facility] [address] [id number] [place] [address] Apr, [facility] [address] [id number] [place] [address] Mar, [facility] [address] [id number] [place] [address] Mar, [facility] [address] [id number] [place] [address] Mar, [facility] [address] [id number] [place] [address] Mar, [facility] [address] [id number] [place] [address] Mar, [facility] [address] [id number] [place] [address] Mar, [facility] [address] [id number] [place] [address] Mar, [facility] [place] [facility] [address] [id number] [place] [address] Mar, [facility] [place] [facility] [address] [id number] [place] [address] Mar, [facility] [place] [facility] [address] [id number] [place] [address] Mar, [facility] [place] [facility] [address] [id number] [place] [address]- [address] Mar, [facility] [place] [facility] [address] [id number] [place] [address]- [address] Mar, [facility] [place] [facility] [address] [id number] [place] [address]- [address]68 Mar, [facility] [place] [facility] [address] [id number] [place] [address] Mar, [facility] [place] [facility] [address] [id number] [address] Mar, [facility] [place] [facility] [address] [id number] [place] [address] Mar, [facility] [place] [facility] [address] [id number] [place] [address]- [address]87 Mar, [facility] [place] [facility] [address] [id number] [place] [address] Mar, [facility] [place] [facility] [address] [id number] [place] [address] Mar, [facility] [place] [facility] [address] [id number] [place] [address] Mar, [facility] [place] [facility] [address] [id number] [place] [address] Mar, [facility] [place] [facility] [address] [id number] [place] [address] Mar, [facility] [place] [facility] [address] [id number] [place] [address] Mar, [facility] [place] [facility] [address] [id number] [place] [address] Feb, [facility] [place] [facility] [address] [id number] [place] [address] 18 Feb, 2013 [facility] [place] [facility] [address] [id number] [place] [address] 16 Feb, 2013 [facility] [place] [facility] [address] [id number] [place] [address]- [address]256 16 Feb, 2013 [facility] [address] [id number] [place] [address]- 6418 15 Feb, 2013 [facility] [place] [facility] [address] [id number] [place] [address]- [address] Feb, [facility] [address] [id number] [place] [address]- 95[address] Feb, [facility] [place] [facility] [address] [id number] [place] [address]- [address] 07 Feb, 2013 [facility] [address] [id number] [place] [address]- 6936 04 Feb, 2013 [facility] [place] [facility] [address] [id number] [place] [address] Feb, [facility] [place] [facility] [address] [id number] [place] [address]- 74[address] 30 Jan, 2013 [facility] [address] [id number] [place] [address]- [address]28 26 Jan, 2013 [facility] [place] [facility] [address] [id number] [place] [address]- [address] 24 Jan, 2013 [facility] [address] [id number] [place] [address]- [address]44 23 Jan, 2013 [facility] [place] [facility] [address] [id number] [place] [address]- [address]40 17 Jan, 2013 [facility] [place] [facility] [address] [id number] [place] [address]48 28 Dec, 2012 [facility] [place] [facility] [address] [id number] [place] [address]- [address] Dec, [facility] [place] [facility] [address] [id number] [place] [address]- [address]113 16 Dec, 2012 [facility] [place] [facility] [address] [id number] [place] [address]- [address] Dec, [facility] [address] [id number] [place] [address]- [address]297 Dec, [facility] [place] [facility] [address] [id number] [place] [address]- 2516 Dec, [facility] [place] [facility] [address] [id number] [place] [address]- 64[address] Dec, [facility] [place] [facility] [address] [id number] [place] [address]- 7075 Nov, [facility] [place] [facility] [address] [id number] [place] [address]- [address]183 Nov, [facility] [place] [facility] [address] [id number] [place] [address]- 8767 Nov, [facility] [place] [facility] [address] [id number] [place] [address]- 9291 Nov, [facility] [place] [facility] [address] [id number] [place] [address]- 5784 Nov, [facility] [place] [facility] [address] [id number] [place] [address]- [address]54 Oct, [facility] [place] [facility] [address] [id number] [place] [address] Oct, [facility] [place] [facility] [address] [id number] [place] [address]- 4026 Oct, [facility] [place] [facility] [address] [id number] [place] [address]- 7661 September, [facility] [place] [facility] [address] [id number] [place] [address]- 89[address] September, [facility] [place] [facility] [address] [id number] [place] [address]- 2876 September, [facility] [place] [facility] [address] [id number] [place] [address]- [address]957 September, [facility] [place] [facility] [address] [id number] [place] [address]- 3558 September, [facility] [address] [id number] [place] [address]- 0012 September, [facility] [address] [facility] [id number] [place] [address]- 290[address] September, [facility] [address] [facility] [id number] [place] [address]- [address] Aug, [facility] [address] [id number] [place] [address]- 6[address] Aug, [facility] [address] [id number] [place] [address]- [address] Aug, [facility] [address] [facility] [id number] [place] [address] 29 Jul, 2012 [facility] [address] [id number] [place] [address] Jul, [facility] [address] [facility] [id number] [place] [address] Jul, [facility] [address] [id number] [place] [address] Jul, [facility] [address] [id number] [place] [address] 17[address] Jul, [facility] [address] [facility] [id number] [place] [address]46 18 Jul, 2012 [facility] [address] [facility] [id number] [place] [address] Jul, [facility] [address] [id number] [place] [address] 28 Jun, 2012 [facility] [address] [facility] [id number] [place] [address] Jun, [facility] [address] [facility] [id number] [address] Jun, [facility] [address] [id number] [place] [address] 2546 Jun, [facility] [place] [facility] [address] [id number] [place] [address] 3836 Jun, [facility] [place] [facility] [address] [id number] [place] [address] 2546 Jun, [facility] [place] [facility] [address] [id number] [place] [address] 2546 Jun, [facility] [place] [facility] [address] [id number] [place] [address] 2546 Jun, [facility] [place] [facility] [address] [id number] [place] [address] 2546 Jun, [facility] [place] [facility] [address] [id number] [place] [address] 2208 Jun, [facility] [place] [facility] [address] [id number] [place] [address] 1530 May, [facility] [place] [facility] [address] [id number] [place] [address] 1354 May, [facility] [place] [facility] [address] [id number] [place] [address] 2029 May, [facility] [place] [facility] [address] [id number] [place] [address] 7780 May, [facility] [place] [facility] [address] [id number] [place] [address]- 2540 May, [facility] [place] [facility] [address] [id number] [place] [address] 2542 May, [facility] [place] [facility] [address] [id number] [place] [address] 2548 Apr, [facility] [place] [facility] [address] [id number] [place] [address] 2542 Apr, [facility] [place] [facility] [address] [id number] [place] [address]- 7999 28 Apr, 2012 [facility] [place] [facility] [address] [id number] [place] [address] 9381 28 Apr, 2012 [facility] [place] [facility] [address] [id number] [place] [address]- 1786 Apr, [facility] [place] [facility] [address] [id number] [place] [address]- 9766 Apr, [facility] [place] [facility] [address] [id number] [place] [address]- 8791 Apr, [facility] [place] [facility] [address] [id number] [place] [address] 5491 29 Mar, 2012 [facility] [place] [facility] [address] [id number] [place] [address]- 0723 29 Mar, 2012 [facility] [place] [facility] [address] [id number] [place] [address]- 1671 27 Mar, 2012 [facility] [place] [facility] [address] [id number] [place] [address] 0621 Mar, [facility] [place] [facility] [address] [id number] [place] [address] 3745 20 Mar, 2012 [facility] [place] [facility] [address] [facility] [id number] [place] [address] 6054 18 Mar, 2012 [facility] [place] [facility] [address] [id number] [place] [address] 3843 18 Mar, 2012 [facility] [place] [facility] [address] [id number] [place] [address]- 2543 16 Mar, 2012 [facility] [place] [facility] [address] [id number] [place] [address]- 7636 16 Mar, 2012 [facility] [place] [facility] [address] [id number] [place] [address]- 2184 16 Mar, 2012 [facility] [place] [facility] [address] [facility] [id number] [place] [address]- 9849 16 Mar, 2012 [facility] [place] [facility] [address] [id number] [place] [address]- 9482 Mar, [facility] [place] [facility] [address] [id number] [place] [address]- 3359 Mar, [facility] [place] [facility] [address] [id number] [place] [address]- 6620 Mar, [facility] [place] [facility] [address] [id number] [place] [address]- 1146 Mar, [facility] [place] [facility] [address] [id number] [place] [address]- 7889 Mar, [facility] [place] [facility] [address] [id number] [place] [address]- 7340 Mar, [facility] [place] [facility] [address] [id number] [place] [address]- 4202 Feb, [facility] [place] [facility] [address] [id number] [place] [address]- 7167 Feb, [facility] [place] [facility] [address] [id number] [place] [address]- 4587 Feb, [facility] [place] [facility] [address] [id number] [place] [address]- 7797 Feb, [facility] [place] [facility] [address] [facility] [id number] [place] [address]- 1875 Feb, [facility] [place] [facility] [address] [id number] [place] [address]- 9460 Feb, [facility] [place] [facility] [address] [id number] [place] [address]- 7231 Feb, [facility] [place] [facility] [address] [id number] [place] [address]- 5304 Feb, [facility] [place] [facility] [address] [id number] [place] [address]- 0005 Feb, [facility] [place] [facility] [address] [id number] [place] [address]- 1192 Feb, [facility] [place] [facility] [address] [id number] [place] [address]- 4171 Feb, [facility] [place] [facility] [address] [id number] [place] [address]- 1106 27 Jan, 2012 [facility] [place] [facility] [address] [id number] [place] [address]- 8026 25 Jan, 2012 [facility] [place] [facility] [address] [id number] [place] [address]- 0557 13 Jan, 2012 [facility] [place] [facility] [address] [id number] [place] [address]- 7761 12 Jan, 2012 [facility] [place] [facility] [address] [id number] [place] [address]- 0623 07 Jan, 2012 [facility] [place] [facility] [address] [id number] [place] [address]- 8647 31 Dec, 2011 [facility] [place] [facility] [address] [id number] [place] [address]- 0337 24 Dec, 2011 [facility] [place] [facility] [address] [id number] [place] [address]- 7486 Dec, [facility] [place] [facility] [address] [id number] [place] [address]- 3321 Dec, [facility] [place] [facility] [address] [id number] [place] [address]- 4616 16 Dec, 2011 [facility] [place] [facility] [address] [id number] [place] [address]- 9976 Dec, [facility] [place] [facility] [address] [id number] [place] [address]- 5483 Dec, [facility] [place] [facility] [address] [id number] [place] [address]- 0057 Dec, [facility] [place] [facility] [address] [id number] [place] [address]- 8874 Nov, [facility] [place] [facility] [address] [id number] [place] [address]- 5585 Nov, [facility] [address] [id number] [place] [address]- 0653 Nov, [facility] [address] [id number] [place] [address]- 8816 Nov, [facility] [address] [id number] [place] [address]- 3546 Nov, [facility] [address] [id number] [place] [address]- 6555 Oct, [facility] [address] [id number] [place] [address]- 3418 Oct, [facility] [address] [id number] [place] [address]- 2224 September, [facility] [address] [id number] [place] [address]- 7967 September, [facility] [address] [id number] [place] [address]- 7544 September, [facility] [address] [id number] [place] [address]- 3481 September, [facility] [address] [id number] [place] [address]- 7768 September, [facility] [address] [id number] [place] [address]- 5142 September, [facility] [address] [id number] [place] [address]- 9647 September, [facility] [address] [id number] [place] [address]- 2490 September, [facility] [address] [id number] [place] [address]- 4186 September, [facility] [address] [id number] [place] [address]- 4866 September, [facility] [address] [id number] [place] [address]- 9062 September, [facility] [address] [id number] [place] [address]- 0096 September, [facility] [address] [id number] [place] [address]- 9376 September, [facility] [address] [id number] [place] [address]- 7616 September, [facility] [address] [id number] [place] [address]- 6796 Aug, [facility] [address] [id number] [place] [address]- 2123 Aug, [facility] [address] [id number] [place] [address]- 6975 Aug, [facility] [address] [id number] [address]- 66[address] Aug, [facility] [address] [id number] [place] [address]- 6679 Jul, [facility] [address] [id number] [address] 7214 Jul, [facility] [address] [id number] [address]- 68[address] Jul, [facility] [address] [id number] [place] [address]- [address] 28 Jun, [address] [facility] [address] [id number] [id number] 26 Jun, 2011 [facility] [address] [id number] [place] [address]- 4946 13 Jun, 2011 [facility] [address] [id number] [place] [address]- 1386 10 Jun, 2011 [facility] [id number] [address]- 9436 07 Jun, 2011 [facility] [address] [id number] [place] [address]- 2239 07 Jun, 2011 [facility] [address] [id number] [place] [address]- 9446 03 Jun, 2011 [facility] [address] [id number] [place] [address]- 5506 Jun, [facility] [address] [id number] [place] [address]- 5095 May, [facility] [address] [id number] [place] [address]- 2045 May, [facility] [address] [id number] [place] [address]- 9461 May, [facility] [address] [id number] [place] [address]- 8580 May, [facility] [address] [id number] [place] [address]- 1027 May, [facility] [address] [id number] [place] [address]- 2545 May, [facility] [address] [id number] [place] [address]- 7658 May, [facility] [address] [id number] [place] [address]- 1107 May, [facility] [address] [id number] [place] [address]- 6046 May, [facility] [address] [id number] [place] [address]- 1197 May, [facility] [place] [facility] [address] [id number] [place] [address]- 1337 17 May, 2011 [facility] [address] [id number] [place] [address]- 4954 13 May, 2011 [facility] [place] [facility] [address] [id number] [place] [address]- 6920 May, [facility] [place] [facility] [address] [id number] [place] [address]- 0194 May, [facility] [place] [facility] [address] [id number] [place] [address]- 0020 30 Apr, 2011 [facility] [place] [facility] [address] [id number] [place] [address]- 9736 16 Apr, 2011 [facility] [place] [facility] [address] [id number] [place] [address] 2540 Apr, [facility] [place] [facility] [address] [id number] [place] [address]- 4013 Mar, [facility] [place] [facility] [address] [id number] [place] [address]- 0496 Mar, [facility] [place] [facility] [address] [id number] [place] [address]- 2363 Feb, [facility] [place] [facility] [address] [id number] [place] [address]- 9492 Feb, [facility] [place] [facility] [address] [id number] [place] [address]- 3969 Feb, [facility] [place] [facility] [address] [id number] [place] [address]- 7353 Feb, [facility] [place] [facility] [address] [id number] [place] [address]- 9564 13 Feb, 2011 [facility] [place] [facility] [address] [id number] [place] [address] 2540 28 Apr, 2010 [facility] [place] [facility] [address] [id number] [place] [address] 2546 22 Apr, 2010 [facility] [place] [facility] [address] [id number] [place] [address] 2546 16 Apr, 2010 [facility] [place] [facility] [address] [id number] [place] [address]- 4489 15 Apr, 2010 [facility] [address] [facility] [id number] [address] 15 Apr, 2010 [facility] [address] [facility] [id number] [place] [address]- 2496 Apr, [facility] [address] [facility] [id number] [place] [address]- 3974 Mar, [facility] [address] [facility] [id number] [place] [address]- 8947 Mar, [facility] [address] [facility] [id number] [place] [address]- 6676 Mar, [facility] [address] [facility] [id number] [place]- 9150 Feb, [facility] [address] [facility] [id number] [place] [address]- 0497 Feb, [facility] [address] [facility] [id number] [place] [address]- 5512 Feb, [facility] [address] [facility] [id number] [place] [address]- 9198 Feb, [facility] [address] [facility] [id number] [place] [address]- 6642 Dec, [facility] [address] [facility] [id number] [place] [address]- 8419 Dec, [facility] [address] [facility] [id number] [place] [address]- 4633 Oct, [facility] [address] [facility] [id number] [place] [address]- 5200 Mar, [facility] [address] [facility] [id number] [place] [address]- 6976 Mar, [facility] [address] [facility] [id number] [place] [address]- 8923 September, IMMUNIZATIONS No Known Immunizations SOCIAL HISTORY Never Assessed REASON FOR VISIT Controlled Med Refill 12/05/2016 PLAN OF CARE VITAL SIGNS MEDICATIONS Medication [...]
--- OUTSIDE RECORDS SUMMARY | 2017-10-05 15:58 | XMS REPORT ---
Author Author VALERIE ZAVALA [facility] Address [address] [place] [address] Care Team Providers Care Meter Tester Name Role Phone VALERIE ZAVALA Unavailable PROBLEMS Type Condition ICD9-CM Code [id number] Code Onset Dates Condition Status SNOMED Code Problem Weight loss R63.4 Active 628701055 Problem Pulmonary emphysema, unspecified emphysema type J43.9 Active 17972308 Problem Insomnia, unspecified type G47.00 Active 418480349 Problem Other emphysema J43.8 Active 51933115 Problem Pain in right knee M25.561 Active 81225642 Problem Anxiety F41.9 Active 49998047 Problem Hypokalemia E87.6 Active 864567424 Problem Generalized anxiety disorder F41.1 Active 78841375 Problem Gastroesophageal reflux disease without esophagitis K21.9 Active 204555601 Problem Post-traumatic stress disorder, chronic F43.12 Active 35285161 Problem Neuropathy G62.9 Active 729915106 Problem Essential hypertension I10 Active 33176791 Problem Right foot pain M79.671 Active 20416317 Problem Back pain M54.9 Active 451829951 Problem UTI symptoms R39.9 Active 42530281 Problem Right low back pain, with sciatica presence unspecified M54.5 Active 677725833 Problem Depression, unspecified depression type F32.9 Active 49273818 Problem Tobacco abuse Z72.0 Active 81439868 Problem Chronic pain G89.29 Active 76602141 Problem Weight decrease R63.4 Active 213071313 Problem Bone pain M89.8X9 Active 65200061 Problem Right upper quadrant abdominal pain R10.11 Active 100577332 ALLERGIES Substance Reaction Event Type Date Status Sulfur rash Drug Allergy May, Active Remeron itching Drug Allergy May, Active Morphine Sulfate nausea Drug Allergy May, Active Fentanyl 25 Mcg/hr Patch 72 Hr Unknown Non Drug Allergy May, Active SOCIAL HISTORY No smoking Hx information available PLAN OF CARE Activity Details Follow Up 1 Week Reason:copd VITAL SIGNS Height 64 in 2016-05-30 Weight 110.6 lbs 2016-05-30 Temperature 98.1 degrees Fahrenheit 2016-05-30 Heart Rate 112 bpm 2016-05-30 Respiratory Rate 24 2016-05-30 Oximetry 99 % 2016-05-30 BMI 18.98 kg/m2 2016-05-30 Blood pressure systolic 160 mmHg 2016-05-30 Blood pressure diastolic 110 mmHg 2016-05-30 MEDICATIONS Medication Instructions Dosage Frequency Start Date End Date Duration Status Atorvastatin Calcium 40 MG TAKE ONE TABLET BY MOUTH DAILY 30 Active Dicyclomine HCl 20 mg Orally 3 times a day 1 tablet 30 to 60 minutes before meals 8h 90 days Active Ibuprofen 600 MG Orally Three times a day 1 tablet with food as needed 8h Active Effexor XR 75 MG Orally Once a day 1 capsule with food 24h Jul, 30 day(s) Active Zantac 150 MG Orally Twice a day 1-2 tablets as needed for heartburn 12h Active Azithromycin 250 MG Orally Once a day 2 tablets on the first day, then 1 tablet daily for 4 days 24h Active Percocet 10-325 MG Orally 4 times a day 1 tablet as needed 6h 30 Apr, 2016 28 days Active Loratadine 10 MG Orally Once a day 1 tablet 24h 30 Active Chlordiazepoxide HCl 10 mg Orally 1 in AM and 1 in afternoon and 2 at hs 1 capsule Active Potassium Chloride ER 20 MEQ Orally Once a day 1 capsule 24h 18 Mar, 2015 90 days Active Trazodone HCl 50 mg Orally Once a day 1-2 tablet at bedtime as needed 24h Apr, Active Elavil 25 MG Orally Once a day 1-2 tablets at bedtime as needed 24h 10 Mar 30 day(s) Active Elavil 75 MG Orally Once a day 1 tablet at bedtime 24h Dec, Active PredniSONE 20 MG Orally Once a day 2 tablets 24h Active Linzess 290 MCG Orally Once a day 1 capsule 24h 90 Active RESULTS No Results PROCEDURES Procedure Date Ordered Related Diagnosis Body Site MEASURE BLOOD OXYGEN LEVEL May 30, 2016 [facility] VISIT ESTABLISHED PATIENT May 30, 2016 Office Visit, Est Pt., Level 3 May 30, 2016 IMMUNIZATIONS No Known Immunizations
--- OUTSIDE RECORDS SUMMARY | 2017-10-05 15:59 | XMS REPORT ---
Author Author VALERIE ZAVALA [facility] Address [address] [place] [address] Care Team Providers Care Information Security Associate Name Role Phone VALERIE ZAVALA Unavailable PROBLEMS Type Condition ICD9-CM Code [id number] Code Onset Dates Condition Status SNOMED Code Problem Insomnia, unspecified type G47.00 Active 728983965 Problem Post-traumatic stress disorder, chronic F43.12 Active 67903342 Problem Pulmonary emphysema, unspecified emphysema type J43.9 Active 62697389 Problem Panic attacks F41.0 Active 555877743 Problem UTI symptoms R39.9 Active 44613233 Problem Other emphysema J43.8 Active 61229591 Problem Pain in right knee M25.561 Active 84024901 Problem Hypokalemia E87.6 Active 082501590 Problem Essential hypertension I10 Active 77426828 Problem Gastroesophageal reflux disease without esophagitis K21.9 Active 126098047 Problem Anxiety F41.9 Active 97989149 Problem Neuropathy G62.9 Active 153846050 Problem Back pain M54.9 Active 250068456 Problem Chronic pain G89.29 Active 38609150 Problem Right low back pain, with sciatica presence unspecified M54.5 Active 489865370 Problem Right foot pain M79.671 Active 09025692 Problem Tobacco abuse Z72.0 Active 01253364 Problem Weight decrease R63.4 Active 202198954 Problem Bone pain M89.8X9 Active 44683332 Problem Right upper quadrant abdominal pain R10.11 Active 276227570 Problem Generalized anxiety disorder F41.1 Active 27499116 Problem Depression, unspecified depression type F32.9 Active 12853216 Problem Weight loss R63.4 Active 967112776 ALLERGIES No Information SOCIAL HISTORY Never Assessed [...]
--- OUTSIDE RECORDS SUMMARY | 2017-10-05 15:59 | XMS REPORT ---
Author Author JESSICA THOMAS Organization [facility] Address [address] [place] [address] Care Team Providers Care Concert Promoter Name Role Phone JESSICA THOMAS Unavailable PROBLEMS Type Condition ICD9-CM Code [id number] Code Onset Dates Condition Status SNOMED Code Problem Weight loss R63.4 Active 019182155 Problem Pulmonary emphysema, unspecified emphysema type J43.9 Active 98076189 Problem Insomnia, unspecified type G47.00 Active 042174994 Problem Other emphysema J43.8 Active 84068416 Problem Right foot pain M79.671 Active 92474877 Problem Neuropathy G62.9 Active 970440180 Problem Hypokalemia E87.6 Active 695763600 Problem Generalized anxiety disorder F41.1 Active 22272955 Problem Gastroesophageal reflux disease without esophagitis K21.9 Active 117372225 Problem Essential hypertension I10 Active 12010585 Problem Anxiety F41.9 Active 84770111 Problem Post-traumatic stress disorder, chronic F43.12 Active 49139355 Problem UTI symptoms R39.9 Active 10208183 Problem Bone pain M89.8X9 Active 06030865 Problem Right low back pain, with sciatica presence unspecified M54.5 Active 773979279 Problem Pain in right knee M25.561 Active 25168665 Problem Depression, unspecified depression type F32.9 Active 57518294 Problem Weight decrease R63.4 Active 122710716 Problem Back pain M54.9 Active 360951394 Problem Tobacco abuse Z72.0 Active 31013002 Problem Chronic pain G89.29 Active 93312645 Problem Right upper quadrant abdominal pain R10.11 Active 342114404 ALLERGIES Unknown Allergies SOCIAL HISTORY No smoking Hx information available PLAN OF CARE VITAL SIGNS MEDICATIONS Medication Instructions Dosage Frequency Start Date End Date Duration Status Chlordiazepoxide HCl 10 mg Orally 1 in AM and 1 in afternoon and 2 at hs 1 capsule Active RESULTS No Results PROCEDURES No Known procedures IMMUNIZATIONS No Known Immunizations
--- OUTSIDE RECORDS SUMMARY | 2017-10-05 15:59 | XMS REPORT ---
Author Author VALERIE ZAVALA Organization [facility] Address [address] [place] [address] Care Team Providers Care Mushroom Picker Name Role Phone VALERIE ZAVALA Unavailable PROBLEMS Type Condition ICD9-CM Code [id number] Code Onset Dates Condition Status SNOMED Code Problem Weight loss R63.4 Active 990807880 Problem Pulmonary emphysema, unspecified emphysema type J43.9 Active 46974844 Problem Insomnia, unspecified type G47.00 Active 530421173 Problem Other emphysema J43.8 Active 66466172 Problem Right foot pain M79.671 Active 26228801 Problem Neuropathy G62.9 Active 050097373 Problem Hypokalemia E87.6 Active 718508593 Problem Generalized anxiety disorder F41.1 Active 19930467 Problem Gastroesophageal reflux disease without esophagitis K21.9 Active 465341539 Problem Essential hypertension I10 Active 75136246 Problem Anxiety F41.9 Active 36925896 Problem Post-traumatic stress disorder, chronic F43.12 Active 79668827 Problem UTI symptoms R39.9 Active 42791819 Problem Bone pain M89.8X9 Active 76705917 Problem Right low back pain, with sciatica presence unspecified M54.5 Active 354172363 Problem Pain in right knee M25.561 Active 92171254 Problem Depression, unspecified depression type F32.9 Active 58661284 Problem Weight decrease R63.4 Active 323775563 Problem Back pain M54.9 Active 407868528 Problem Tobacco abuse Z72.0 Active 77214702 Problem Chronic pain G89.29 Active 67178262 Problem Right upper quadrant abdominal pain R10.11 Active 708906968 ALLERGIES Unknown Allergies SOCIAL HISTORY No smoking Hx information available PLAN OF CARE VITAL SIGNS MEDICATIONS Medication Instructions Dosage Frequency Start Date End Date Duration Status Percocet 10-325 MG Orally 4 times a day 1 tablet as needed 6h 30 Apr, 2016 28 days Active RESULTS No Results PROCEDURES No Known procedures IMMUNIZATIONS No Known Immunizations
--- OUTSIDE RECORDS SUMMARY | 2017-10-05 15:59 | XMS REPORT ---
Author Author VALERIE ZAVALA Organization [facility] Address [address] [place] [address] Care Team Providers Care Certified Nurse Aide Name Role Phone VALERIE ZAVALA Unavailable PROBLEMS Type Condition ICD9-CM Code [id number] Code Onset Dates Condition Status SNOMED Code Problem Weight loss R63.4 Active 677416771 Problem Pulmonary emphysema, unspecified emphysema type J43.9 Active 28271823 Problem Insomnia, unspecified type G47.00 Active 251595665 Problem Other emphysema J43.8 Active 20286930 Problem Pain in right knee M25.561 Active 48655696 Problem Anxiety F41.9 Active 81259061 Problem Hypokalemia E87.6 Active 302483248 Problem Generalized anxiety disorder F41.1 Active 27797953 Problem Gastroesophageal reflux disease without esophagitis K21.9 Active 614538738 Problem Post-traumatic stress disorder, chronic F43.12 Active 93461435 Problem Neuropathy G62.9 Active 751796155 Problem Essential hypertension I10 Active 85256522 Problem Right foot pain M79.671 Active 62173060 Problem Back pain M54.9 Active 557306814 Problem UTI symptoms R39.9 Active 40604369 Problem Right low back pain, with sciatica presence unspecified M54.5 Active 599075436 Problem Depression, unspecified depression type F32.9 Active 90119520 Problem Tobacco abuse Z72.0 Active 59348917 Problem Chronic pain G89.29 Active 11598507 Problem Weight decrease R63.4 Active 012633667 Problem Bone pain M89.8X9 Active 67109198 Problem Right upper quadrant abdominal pain R10.11 Active 500262668 ALLERGIES Unknown Allergies SOCIAL HISTORY No smoking Hx information available PLAN OF CARE VITAL SIGNS MEDICATIONS Medication Instructions Dosage Frequency Start Date End Date Duration Status Percocet 10-325 MG Orally 4 times a day 1 tablet as needed 6h May, 28 days Active RESULTS No Results PROCEDURES No Known procedures IMMUNIZATIONS No Known Immunizations
--- OUTSIDE RECORDS SUMMARY | 2017-10-05 16:01 | XMS REPORT ---
Author Author VALERIE ZAVALA [facility] Address [address] [place] [address] Care Team Providers Care Reconsignment Clerk Name Role Phone VALERIE ZAVALA Unavailable PROBLEMS Type Condition ICD9-CM Code [id number] Code Onset Dates Condition Status SNOMED Code Problem Weight loss R63.4 Active 156125374 Problem Pulmonary emphysema, unspecified emphysema type J43.9 Active 28587277 Problem Insomnia, unspecified type G47.00 Active 307137071 Problem Other emphysema J43.8 Active 91854985 Problem Pain in right knee M25.561 Active 36889270 Problem Anxiety F41.9 Active 41079425 Problem Hypokalemia E87.6 Active 065106144 Problem Generalized anxiety disorder F41.1 Active 62429806 Problem Gastroesophageal reflux disease without esophagitis K21.9 Active 324285873 Problem Post-traumatic stress disorder, chronic F43.12 Active 10598093 Problem Neuropathy G62.9 Active 805250623 Problem Essential hypertension I10 Active 08451024 Problem Right foot pain M79.671 Active 68367991 Problem Back pain M54.9 Active 451837739 Problem UTI symptoms R39.9 Active 67784541 Problem Right low back pain, with sciatica presence unspecified M54.5 Active 047751240 Problem Depression, unspecified depression type F32.9 Active 52227537 Problem Tobacco abuse Z72.0 Active 55175113 Problem Chronic pain G89.29 Active 55637652 Problem Weight decrease R63.4 Active 272674405 Problem Bone pain M89.8X9 Active 96383787 Problem Right upper quadrant abdominal pain R10.11 Active 964982955 ALLERGIES Substance Reaction Event Type Date Status Sulfur rash Drug Allergy May, Active Remeron itching Drug Allergy May, Active Morphine Sulfate nausea Drug Allergy May, Active Fentanyl 25 Mcg/hr Patch 72 Hr Unknown Non Drug Allergy May, Active SOCIAL HISTORY No smoking Hx information available PLAN OF CARE Activity Details Follow Up 3 Months Reason:pain mgmt VITAL SIGNS Height 64 in 2016-05-18 Weight 121.7 lbs 2016-05-18 Temperature 98.0 degrees Fahrenheit 2016-05-18 Heart Rate 78 bpm 2016-05-18 Respiratory Rate 18 2016-05-18 BMI 20.89 kg/m2 2016-05-18 Blood pressure systolic 126 mmHg 2016-05-18 Blood pressure diastolic 72 mmHg 2016-05-18 MEDICATIONS Medication Instructions Dosage Frequency Start Date End Date Duration Status Chlordiazepoxide HCl 10 mg Orally 1 in AM and 1 in afternoon and 2 at hs 1 capsule Active Zantac 150 MG Orally Twice a day 1-2 tablets as needed for heartburn 12h Active Elavil 25 MG Orally Once a day 1-2 tablets at bedtime as needed 24h 10 Mar 30 day(s) Active Loratadine 10 MG Orally Once a day 1 tablet 24h 30 Active Percocet 10-325 MG Orally 4 times a day 1 tablet as needed 6h 30 Apr, 2016 28 days Active Atorvastatin Calcium 40 MG TAKE ONE TABLET BY MOUTH DAILY 30 Active Potassium Chloride ER 20 MEQ Orally Once a day 1 capsule 24h Mar, 90 days Active Trazodone HCl 50 mg Orally Once a day 1-2 tablet at bedtime as needed 24h 19 Apr, 2016 Active Dicyclomine HCl 20 mg Orally 3 times a day 1 tablet 30 to 60 minutes before meals 8h 90 days Active Effexor XR 75 MG Orally Once a day 1 capsule with food 24h Jul, 30 day(s) Active Ibuprofen 600 MG Orally Three times a day 1 tablet with food as needed 8h Active Linzess 290 MCG Orally Once a day 1 capsule 24h 90 Active Elavil 75 MG Orally Once a day 1 tablet at bedtime 24h Dec, Active RESULTS Name Result Date Reference Range [employer] 2016-05-18 Xray : Knee, Right 3 views (IN HOUSE) 2016-05-18 Xray : Chest (IN HOUSE) 2016-05-18 PROCEDURES Procedure Date Ordered Related Diagnosis Body Site X-RAY EXAM OF KNEE, 3 May 18, 2016 CHEST X-RAY May 18, 2016 Office Visit, Est Pt., Level 3 May 18, 2016 FOR[facility]LY [facility], [facility] VISIT ESTABLISHED PATIENT May 18, 2016 PCV 13 May 18, 2016 FLUZONE HIGH DOSE 65 AND UP 2015May 18, 2016 IMMUNIZATION ADMIN, EACH ADD (please include units) May 18, 2016 SINGLE IMMUNIZATION ADMIN May 18, 2016 IMMUNIZATIONS Vaccine Route Administration Date Status FLUZONE HIGH DOSE 65 AND UP 2015 IM Intramuscular May 18, 2016 Administered PCV 13 IM Intramuscular May 18, 2016 Administered
--- OUTSIDE RECORDS SUMMARY | 2017-10-05 16:01 | XMS REPORT ---
Author Author VALERIE ZAVALA Organization [facility] Address [address] [place] [address] Care Team Providers Care Oncology Nurse Name Role Phone VALERIE ZAVALA Unavailable PROBLEMS Type Condition ICD9-CM Code [id number] Code Onset Dates Condition Status SNOMED Code Problem Generalized anxiety disorder F41.1 Active 25006239 Problem Hypokalemia E87.6 Active 991651848 Problem Pulmonary emphysema, unspecified emphysema type J43.9 Active 99419896 Problem Right low back pain, with sciatica presence unspecified M54.5 Active 841425653 Problem Post-traumatic stress disorder, chronic F43.12 Active 91119725 Problem Pain in right knee M25.561 Active 84236110 Problem Gastroesophageal reflux disease without esophagitis K21.9 Active 965058525 Problem Neuropathy G62.9 Active 129653698 Problem Essential hypertension I10 Active 73295691 Problem Generalized abdominal pain R10.84 Active 311618986 Problem Kidney stones N20.0 Active 69179569 Problem Back pain M54.9 Active 171082879 Problem Right foot pain M79.671 Active 14606845 Problem UTI symptoms R39.9 Active 93565187 Problem Other emphysema J43.8 Active 36330642 Problem Anxiety F41.9 Active 92082787 Problem Renal calculus, right N20.0 Active 45145701 Problem Panic attacks F41.0 Active 215656766 Problem Depression, unspecified depression type F32.9 Active 65608013 Problem Weight decrease R63.4 Active 057047297 Problem Chronic pain G89.29 Active 72600313 Problem Bone pain M89.8X9 Active 31166460 Problem Weight loss R63.4 Active 850310612 Problem Insomnia, unspecified type G47.00 Active 840031444 Problem Tobacco abuse Z72.0 Active 42780242 Problem Right upper quadrant abdominal pain R10.11 Active 984363944 ALLERGIES No Information ENCOUNTERS Encounter Location Date Diagnosis [facility] [address], [place] [address] September, [facility] [id number] [place] [address] 36731 -8626 Jul, Dysuria R30.0 and Renal calculus, right N20.0 [facility] [id number] [place] [address] 97065- 6655 Jul, Medicare welcome exam Z00.00 [facility] [id number] [place] [address] 66130- 8535 13 Jun, 2017 Gastroesophageal reflux disease without esophagitis K21.9 and Generalized abdominal pain R10.84 [facility] [id number] [place] [address] 20869- 8693 09 Jun, 2017 Medicare welcome exam Z00.00 [facility] [id number] [place] [address] 00952- 7698 Jun, [facility] [id number] [place] [address] 20768- 5443 Jun, Medicare welcome exam Z00.00 and Encounter for screening mammogram for malignant neoplasm of breast Z12.31 [facility] [id number] [place] [address] 15051- 8120 Jun, Chronic pain G89.29 [facility] [id number] [place] [address] 01922- 5617 May, [facility] [id number] [place] [address] 29048- 7042 May, Pelvic pain R10.2 [facility] [id number] [place] [address] 41397- 6480 May, Pelvic pain R10.2 [facility] [id number] [place] [address] 85160 -4128 May, Renal calculus, right N20.0 [facility] [id number] [place] [address] 43918- 8394 May, Hematuria, unspecified type R31.9 and Nephrolithiasis N20.0 [facility] [id number] [place] [address] 28789 -3241 May, Dysuria R30.0 and Nephrolithiasis N20.0 [facility] [id number] [place] [address] 29729- 8437 May, [facility] [id number] [place] [address] 46864 -3561 May, Abdominal pain R10.9 and Kidney stone N20.0 [facility] [id number] [place] [address] 80818- 5296 May, [facility] [id number] [place] [address] 08093- 9680 May, Chronic pain G89.29 and Panic attacks F41.0 [facility] [id number] [place] [address] 46923- 8702 May, Urinary tract infection without hematuria, site unspecified N39.0 [facility] [id number] [place] [address] 40250- 4730 Apr, Right lower quadrant abdominal pain R10.31 and Abnormal serum lipase level R74.8 [facility] [id number] [place] [address] 05160- 9363 Apr, Recurrent urinary tract infection N39.0 [facility] [id number] [place] [address] 04304- 1988 Apr, UTI symptoms R39.9 ; Recurrent urinary tract infection N39.0 and Pelvic pain R10.2 [facility] [id number] [place] [address] 62320- 4831 Apr, Chronic pain G89.29 and Panic attacks F41.0 [facility] [id number] [place] [address] 57918- 9539 Apr, Dysuria R30.0 [facility] [id number] [place] [address] 42488- 6766 Apr, [facility] [id number] [place] [address] 47267- 7050 Apr, Dysuria R30.0 and Urinary tract infection without hematuria , site unspecified N39.0 [facility] [id number] [place] [address] 30007- 0748 Mar, UTI symptoms R39.9 [facility] [id number] [place] [address] 05204- 5880 Mar, [facility] [id number] [place] [address] 28749- 6624 Mar, Panic attacks F41.0 and Chronic pain G89.29 [facility] [address] 37348- 6595 Mar, [facility] [id number] [place] [address] 76728- 5950 Mar, Dysuria R30.0 [facility] [id number] [place] [address] 67162- 8036 Mar, Dysuria R30.0 [facility] [id number] [place] [address] 01498- 2180 Feb, Chronic pain G89.29 ; Shortness of breath R06.02 ; Weight loss R63.4 ; Encounter for immunization Z23 ; Bone pain M89.8X9 ; Right anterior knee pain M25.561 and Cough R05 [facility] [id number] [place] [address] 52233- 0172 Feb, Shortness of breath R06.02 [facility] [id number] [place] [address] 28832- 0193 Feb, [facility] [id number] [place] [address] 77129- 7882 Feb, Panic attacks F41.0 and Chronic pain G89.29 [facility] [id number] [place] [address] 86463- 1421 Feb, [facility] [id number] [place] [address] 62642- 9191 Feb, Panic attacks F41.0 ; Shortness of breath R06.02 and Encounter for immunization Z23 [facility] [address] 33497- 5302 Jan, [facility] [address] 13212- 8161 Jan, Anxiety F41.9 and Chronic pain G89.[address] 50542- 0695 Dec, Anxiety F41.9 and Chronic pain G89.[address] 76256- 1363 Nov, Chronic pain G89.[address] 17018- 2760 Nov, Anxiety F41.9 [place] [id number] [place] [address] 71858- 1692 Nov, Chronic pain G89.29 ; Essential hypertension I10 and Other emphysema J43.8 [place] [place] [id number] [place] [address] 27795- 4404 Oct, Anxiety F41.9 [facility] [id number] [place] [address] 10015- 9770 Oct, [address] 54247- 1975 Oct, Chronic pain G89.29 [place] [id number] [place] [address] 35410- 6639 September, Recurrent UTI N39.0 ; Neuropathy G62.9 and Anxiety F41.9 [facility] [id number] [place] [address] 82652- 0903 September, [facility] [id number] [place] [address] 71113- 9486 September, Chronic pain G89.29 [facility] [id number] [place] [address] 51375- 0336 September, [facility] [id number] [place] [address] 94091- 9996 Aug, Post-traumatic stress disorder, chronic F43.12 ; Chronic urinary tract infection N39.0 ; Gastroesophageal reflux disease without esophagitis K21.9 ; Chronic pain G89.29 ; Essential hypertension I10 and Tobacco abuse Z72.0 [facility] [id number] [place] [address] 95184 -0072 Aug, [facility] [id number] [place] [address] 56037- 0820 Aug, Chronic pain G89.29 [facility] [id number] [place] [address] 66942- 8920 Aug, Insomnia, unspecified type G47.00 [facility] [id number] [place] [address] 78931- 7527 Aug, [facility] [id number] [place] [address] 25991- 7582 Jul, Chronic pain G89.29 [facility] [id number] [place] [address] 51228- 1261 Jul, [facility] [id number] [place] [address] 29986- 9078 Jul, [facility] [id number] [place] [address] 77896- 2225 Jul, [facility] [id number] [place] [address] 57110- 0123 15 Jul, 2016 Recurrent UTI (urinary tract infection) N39.0 [facility] [address], [place] [address]- 8950 14 Jul, 2016 [facility] [id number] [place] [address] 51139- 3163 Jun, Chronic pain G89.29 [facility] [id number] [place] [address] 96505- 1483 Jun, [facility] [id number] [place] [address] 71032- 7101 Jun, [facility] [id number] [place] [address] 65506- 0280 May, Chronic pain G89.29 [facility] [id number] [place] [address] 86376- 5719 May, Weight loss R63.4 and Shortness of breath R06.02 [facility] [id number] [place] [address] 66485- 5727 May, Chronic pain G89.29 ; Weight loss R63.4 and Tobacco abuse Z72.0 [facility] [id number] [place] [address] 99568- 1107 May, [facility] [id number] [place] [address] 19633- 8860 May, Hypoxia R09.02 [facility] [id number] [place] [address] 19747- 5994 May, [facility] [id number] [place] [address] 05181- 4891 May, Pulmonary emphysema, unspecified emphysema type J43.9 [facility] [id number] [place] [address] 12148 -7032 May, [facility] [id number] [place] [address] 82002- 6949 May, [facility] [id number] [place] [address] 24859- 3141 May, [facility] [address] 85541- 8857 May, Chronic pain G89.29 ; Encounter for immunization Z23 ; Right anterior knee pain M25.561 and Cough R05 [facility] [address] 93880- 9003 Apr, Chronic pain G89.29 [facility] [id number] [place] [address] 14346- 0652 Apr, [facility] [address] 68541- 7303 Apr, Generalized anxiety disorder F41.1 and Depression, unspecified depression type F32.9 [facility] [id number] [place] [address] 94302- 9800 Apr, Chronic pain G89.29 ; Hypokalemia E87.6 and Insomnia, unspecified type G47.00 [facility] [id number] [place] [address] 60505- 8370 Apr, [facility] [id number] [place] [address] 08988- 9469 Apr, Chronic pain G89.29 [facility] [id number] [place] [address] 40783- 3508 Apr, [facility] [id number] [place] [address] 12285- 5132 Mar, [facility] [id number] [place] [address] 35335- 0647 Mar, Insomnia, unspecified type G47.00 [facility] [id number] [place] [address] 00589- 8704 Mar, Chronic pain G89.29 [facility] [id number] [place] [address] 21883- 8386 Mar, [facility] [address] [facility] [id number] [address]- 6668 Feb, [facility] [address] [place] [address] 04212- 9077 Feb, [facility] [address], [place] [address]- 0220 Feb, [facility] [id number] [place] [address] 87631- 3238 Feb, [facility] [address] [facility] [id number] [place] [address], [place] [address]- 7092 Feb, [facility] [id number] [place] [address] 83952- 9954 29 Jan, 2016 [facility] [id number] [place] [address] 80727- 1643 26 Jan, 2016 [facility] [address] [place] [address] 06771- 4444 20 Jan, 2016 [facility] [id number] [address]- 6399 13 Jan, 2016 [facility] [address], [place] [address]- 4717 12 Jan, 2016 [facility] [address], [place] [address]- 9872 07 Jan, 2016 Chronic pain G89.29 [facility] [address], [place] [address]- 2022 Jan, Chronic pain G89.29 and Fibromyalgia M79.7 [facility] [address] [place] [address] 15284- 4368 Dec, Depression, unspecified depression type F32.9 and Generalized anxiety disorder 300.02 [facility] [address], [place] [address]- 0692 Dec, Dysthymia F34.1 ; Insomnia, unspecified type G47.00 and Chronic pain G89.29 [facility] [address] [place] [address] 76336- 0360 Dec, Chronic pain G89.29 [facility] [id number] [place] [address] 69740- 7245 Dec, Insomnia, unspecified type G47.00 [facility] [id number] [place] [address] 18898 2545 Dec, Fibromyalgia M79.7 and Chronic pain G89.29 [facility] [id number] [place] [address] 16987- 5911 Dec, [facility] [id number] [place] [address] 38285- 6355 Dec, [facility] [id number] [place] [address] 48513- 2852 Dec, [facility] [id number] [place] [address] 27510- 4558 Dec, [facility] [id number] [place] [address] 96123- 5768 Dec, Chronic pain G89.29 [facility] [id number] [place] [address] 18557 2548 Dec, [facility] [id number] [place] [address] 45550- 6931 Dec, [facility] [id number] [place] [address] 72697 254 Dec, [facility] [id number] [place] [address] 85844- 4480 Dec, Chronic pain G89.29 and Dysthymia F34.1 [facility] [id number] [place] [address] 22374 2545 Nov, [facility] [id number] [place] [address] 20525- 3668 Nov, Hypokalemia E87.6 and Chronic pain G89.29 [facility] [id number] [place] [address] 22277- 9279 Nov, Back pain M54.9 and Pain in right knee M25.561 [facility] [id number] [place] [address] 67760- 4229 Nov, [facility] [address] 96944- 2591 Nov, Chronic pain G89.29 [facility] [address] 11795- 0678 Nov, Chronic pain G89.29 ; Weight loss R63.4 ; Bone pain M89.8X9 and Insomnia, unspecified type G47.00 [facility] [id number] [place] [address] 86989- 1135 Nov, Chronic pain G89.29 [facility] [id number] [place] [address] 91004- 3893 Nov, Chronic pain G89.29 [facility] [address] 40360- 6240 Oct, Chronic pain G89.29 [facility] [id number] [place] [address] 45916- 0087 Oct, UTI symptoms R39.9 [facility] [id number] [place] [address] 69165- 1325 Oct, Chronic pain G89.29 [facility] [id number] [place] [address] 54982- 3492 Oct, Chronic pain G89.29 [facility] [id number] [place] [address] 11408- 7534 13 Oct, 2015 Chronic pain G89.29 [facility] [id number] [place] [address] 79703- 3047 Oct, Right upper quadrant abdominal pain R10.11 [facility] [address], [place] [address]- 3090 Oct, Chronic pain G89.29 [facility] [address], [place] [address]- 5579 Oct, [facility] [address] [place] [address] 75464- 7420 September, Chronic pain G89.29 [facility] [id number] [place] [address] 12215- 7274 September, Dysuria R30.0 and Urinary tract infection without hematuria , site unspecified N39.0 [facility] [address] [place] [address] 21356- 2001 September, [facility] [id number] [place] [address] 22472- 0153 September, Dysuria R30.0 [facility] [id number] [place] [address] 12240- 3422 September, Chronic pain G89.29 [facility] [id number] [place] [address] 33679- 3011 September, Chronic pain G89.29 and Essential hypertension I10 [facility] [address], [place] [address]- 6038 September, [facility] [id number] [place] [address] 82759- 8243 September, [facility] [address], [place] [address]- 3350 September, [facility] [id number] [place] [address] 54580- 7606 Aug, UTI symptoms R39.9 [facility] [address], [place] [address]- 4674 Aug, Dysuria R30.0 [facility] [address], [place] [address]- 6031 Aug, [facility] [id number] [place] [address] 66465- 1665 Aug, [facility] [address], [place] [address]- 6158 Aug, [facility] [id number] [place] [address] 44686- 3273 Aug, Chronic pain G89.29 [facility] [id number] [place] [address] 53100- 1874 Aug, Dysthymia F34.1 [facility] [id number] [place] [address] 34397- 7072 Aug, Conjunctivitis, unspecified conjunctivitis type, unspecified laterality H10.9 [facility] [id number] [place] [address] 05965- 4557 31 Jul, 2015 Chronic pain G89.29 ; Back pain M54.9 ; Tobacco abuse Z72.0 and Weight decrease R63.4 [facility] [id number] [place] [address] 16570- 1210 30 Jul, 2015 [facility] [address], [place] [address]- 8537 30 Jul, 2015 [facility] [address], [place] [address]- 0394 24 Jul, 2015 Chronic pain G89.29 [facility] [address], [place] [address]- 7831 Jul, [facility] [id number] [place] [address] 48014- 9134 21 Jul, 2015 [facility] [address], [place] [address]- 7802 18 Jul, 2015 [facility] [id number] [place] [address] 64964- 1078 17 Jul, 2015 [facility] [address], [place] [address]- 8741 Jul, Chronic pain G89.29 [facility] [address] 450[address] 16 Jul, 2015 Chronic pain G89.29 [facility] [id number] [address] 15 Jul, 2015 [facility] [id number] [address] Jul, [facility] [id number] [place] [address]- 8339 Jul, [facility] [id number] [address] Jul, [facility] [id number] [place] [address]- 8590 Jun, [facility] [id number] [address] Jun, Depression, unspecified depression type F32.9 [facility] [id number] [place] [address]42- 4181 Jun, Pain in right knee M25.561 [facility] [id number] [address] Jun, Chronic pain G89.29 ; Back pain M54.9 ; Bone pain M89.8X9 and Weight loss R63.4 [facility] [id number] [address] Jun, [facility] [id number] [address] May, [facility] [id number] [address] May, UTI symptoms R39.9 ; Pain in right knee M25.561 ; Right low back pain, with sciatica presence unspecified M54.5 ; Right foot pain M79.671 ; Hypokalemia E87.6 and Screening, lipid Z13.220 [facility] [id number] [place] [address]21- 1564 May, [facility] [address] [address] May, [facility] [address] [address] Mar, [facility] [address] [address] Mar, [facility] [address] [address] Mar, Hypokalemia E87.6 [facility] [address] [address] Mar, Pain in right leg M79.604 ; Encounter for immunization Z23 ; Pain in right knee M25.561 and Hypokalemia E87.6 [facility] [id number] [place] [address]- 5725 Jan, [facility] [id number] [place] [address]- 5637 Jan, [facility] [id number] [place] [address] 40729- 7576 Jan, Abdominal pain, generalized 789.07 [facility] [id number] [place] [address]- 1891 Jan, Abdominal pain, generalized 789.07 [facility] [id number] [place] [address] 31346- 0475 Dec, [facility] [id number] [place] [address] 12[address]- 2043 Dec, [facility] [address] [address] Dec, [facility] [id number] [address] Nov, Hallux valgus 735.0 and Hammertoe 735.4 [facility] [address] [facility] [id number] [address] Nov, [facility] [id number] [place] [address]35- 5836 Nov, Hallux valgus 735.0 and Hammer toe 735.4 [facility] [id number] [place] [address] 11419- 0416 Oct, [facility] [id number] [place] [address] 36[address]- 2686 Oct, [facility] [address] [id number] [place] [address]- 5163 Oct, Pre-op evaluation V72.84 [facility] [id number], [place] [address] Oct, [facility] [id number] [place] [address]- 6115 Oct, [facility] [id number], [place] [address] 74[address] September, [facility] [id number] [place] [address]197- 2066 September, [facility] [id number] [address]6 September, Hallux valgus (acquired) 735.0 and Other hammer toe ( acquired) 735.4 [facility] [address] [address]88 Aug, [facility] [address], [place] [address] 3196 Aug, [facility] [place] [facility] [address] [facility] [id number] [place] [address]- 2046 09 Jul, 2014 [facility] [place] [facility] [address] [id number] [place] [address]- 3460 Jul, 2014 [facility] [place] [facility] [address] [id number] [place] [address] Jul, 2014 [facility] [place] [facility] [address] [id number] [place] [address]- 5507 Jul, 2014 [facility] [place] [facility] [address] [id number] [place] [address]- 4678 Jul, 2014 [facility] [place] [facility] [address] [id number] [place] [address]- 0092 Jul, 2014 [facility] [place] [facility] [address] [facility] [id number] [place] [address]- 8368 Jul, 2014 [facility] [place] [facility] [address] [id number] [place] [address]- 7511 Jul, 2014 [facility] [place] [facility] [address] [id number] [place] [address]- 5063 Jun, 2014 [facility] [place] [facility] [address] [facility] [id number] [place] [address]- 1666 Jun, 2014 [facility] [place] [facility] [address] [facility] [id number] [place] [address]- 0667 Jun, 2014 [facility] [place] [facility] [address] [facility] [id number] [place] [address]- 6238 Jun, 2014 [facility] [place] [facility] [address] [facility] [id number] [place] [address]- 7022 Jun, 2014 [facility] [place] [facility] [address] [id number] [place] [address]- 9077 Jun, 2014 [facility] [place] [facility] [address] [facility] [id number] [place] [address]- 5653 Jun, 2014 [facility] [place] [facility] [address] [facility] [id number], [place] [address]- 3137 Jun, [facility] [place] [facility] [address] [id number] [place] [address]- 7030 Jun, [facility] [place] [facility] [address] [id number] [place] [address]- 0119 Jun, [facility] [place] [facility] [address] [id number] [place] [address]- 0653 May, [facility] [place] [facility] [address] [id number] [place] [address]- 3884 May, [facility] [place] [facility] [address] [id number] [place] [address]- 8390 May, [facility] [place] [facility] [address] [id number] [place] [address]- 2287 May, [facility] [place] [facility] [address] [id number] [place] [address]- 8354 May, [facility] [place] [facility] [address] [id number] [place] [address]- 5961 May, [facility] [place] [facility] [address] [id number] [place] [address]- 2200 May, [facility] [place] [facility] [address] [id number] [place] [address]- 6345 May, [facility] [place] [facility] [address] [id number] [place] [address]- 5565 May, [facility] [place] [facility] [address] [id number], [place] [address]- 8833 May, [facility] [place] [facility] [address] [id number] [place] [address]- 4535 May, [facility] [place] [facility] [address] [id number] [place] [address]- 3782 May, [facility] [place] [facility] [address] [id number] [place] [address]- 5718 May, [facility] [place] [facility] [address] [id number] [place] [address]- 7263 May, [facility] [place] [facility] [address] [id number] [place] [address]- 9678 May, [facility] [place] [facility] [address] [id number] [place] [address]- 3826 May, [facility] [place] [facility] [address] [id number] [place] [address]- 6746 May, [facility] [place] [facility] [address] [id number] [place] [address]- 8465 May, [facility] [place] [facility] [address] [id number] [place] 6853 Apr, [facility] [place] [facility] [address] [id number] [place] 4704 Apr, [facility] [place] [facility] [address] [id number] [place] [address]- 2637 Apr, [facility] [place] [facility] [address] [id number] [place]228 Apr, [facility] [place] [facility] [address] [id number] [place] 1591 Apr, [facility] [place] [facility] [address] [id number] [place] [address]- 6303 Apr, [facility] [place] [facility] [address] [id number] [place] [address]- 1325 Apr, [facility] [place] [facility] [address] [id number] [place] [address]- 0937 Apr, [facility] [place] [facility] [address] [id number] [place] [address]- 3966 Apr, [facility] [place] [facility] [address] [id number] [place] [address]- 3178 Mar, [facility] [place] [facility] [address] [id number] [place] [address]- 0562 Mar, [facility] [place] [facility] [address] [id number] [place] [address]- 5558 Mar, [facility] [place] [facility] [address] [id number] [place] [address]- 2631 Mar, [facility] [place] [facility] [address] [id number] [place] [address]- 0930 Mar, [facility] [place] [facility] [address] [id number] [place] [address]- 8102 Feb, [facility] [place] [facility] [address] [id number] [place] [address]- 1432 Feb, [facility] [place] [facility] [address] [id number] [place] [address]- 6315 Feb, [facility] [place] [facility] [address] [id number] [place] [address]- 7764 Feb, [facility] [place] [facility] [address] [id number], [place] [address]- 3540 Feb, [facility] [place] [facility] [address] [id number] [place] [address]- 8543 Feb, [facility] [place] [facility] [address] [id number], [place] [address]- 4535 Feb, [facility] [place] [facility] [address] [id number], [place] [address]- 9840 Feb, [facility] [place] [facility] [address] [id number], [place] [address]- 5740 Feb, [facility] [place] [facility] [address] [id number], [place] [address]- 1952 Feb, [facility] [place] [facility] [address] [id number], [place] [address]- 8833 Feb, [facility] [place] [facility] [address] [id number], [place] [address]- 1313 Feb, [facility] [place] [facility] [address] [id number] [place] [address]- 6386 07 Feb, 2013 [facility] [place] [facility] [address] [id number] [place] [address]- 7359 07 Feb, 2013 [facility] [place] [facility] [address] [id number] [place] [address]- 1906 Feb, 2013 [facility] [place] [facility] [address] [id number] [place] [address]- 4361 Feb, [facility] [place] [facility] [address] [id number] [place] [address]- 1189 23 Jan, 2013 [facility] [place] [facility] [address] [id number] [place] [address]- 1614 23 Jan, 2013 [facility] [place] [facility] [address] [id number] [place] [address]- 8170 20 Jan, 2014 [facility] [place] [facility] [address] [id number] [place] [address]- 6180 19 Jan, 2013 [facility] [place] [facility] [address] [id number] [place] [address]- 4131 11 Jan, 2013 [facility] [place] [facility] [address] [id number] [place] [address]- 6868 Jan, [facility] [place] [facility] [address] [id number] [place] [address]- 2730 Jan, [facility] [place] [facility] [address] [id number] [place] [address]- 2568 Jan, [facility] [place] [facility] [address] [id number] [place] [address]- 5492 Dec, [facility] [place] [facility] [address] [id number] [place] [address]- 9191 Dec, [facility] [place] [facility] [address] [id number] [place] [address]- 5667 Nov, [facility] [place] [facility] [address] [id number] [place] [address]- 7584 Nov, [facility] [place] [facility] [address] [id number] [place] [address]- 5626 Nov, [facility] [place] [facility] [address] [id number] [place] [address]- 2238 Nov, [facility] [place] [facility] [address] [id number] [place] [address]- 8046 Nov, [facility] [place] [facility] [address] [id number] [place] [address]- 5491 Nov, [facility] [place] [facility] [address] [id number] [place] [address]- 7653 Nov, [facility] [place] [facility] [address] [id number] [place] [address]- 8354 Nov, [facility] [place] [facility] [address] [id number] [place] [address]- 8542 Nov, [facility] [place] [facility] [address] [id number] [place] [address]- 9580 Oct, [facility] [place] [facility] [address] [id number] [place] [address]- 4257 Oct, [facility] [place] [facility] [address] [id number] [place] [address]- 0572 Oct, [facility] [place] [facility] [address] [id number] [place] [address]- 7146 Oct, [facility] [place] [facility] [address] [id number] [place] [address]- 1415 Oct, [facility] [place] [facility] [address] [id number] [place] [address]- 8211 Oct, [facility] [place] [facility] [address] [id number] [place] [address]- 9637 September, [facility] [place] [facility] [address] [id number] [place] [address]- 5153 September, [facility] [place] [facility] [address] [id number] [place] [address]- 0441 September, [facility] [place] [facility] [address] [id number] [place] [address]- 6056 September, [facility] [place] [facility] [address] [id number] [place] [address]- 1585 September, [facility] [place] [facility] [address] [id number] [place] [address]- 1264 September, [facility] [place] [facility] [address] [id number] [place] [address]- 9171 September, [facility] [place] [facility] [address] [id number] [place] [address]- 2165 September, [facility] [place] [facility] [address] [id number] [place] [address]- 8440 September, [facility] [place] [facility] [address] [id number] [place] [address]- 8886 September, [facility] [place] [facility] [address] [id number] [place] [address]- 8090 September, [facility] [place] [facility] [address] [id number] [place] [address]- 3784 September, [facility] [place] [facility] [address] [id number] [place] [address]- 6814 September, [facility] [place] [facility] [address] [id number] [place] [address]- 0546 September, [facility] [place] [facility] [address] [id number] [place] [address]- 8047 September, [facility] [place] [facility] [address] [id number] [place] [address]- 0518 September, [facility] [place] [facility] [address] [id number] [place] [address]- 8970 September, [facility] [place] [facility] [address] [id number] [place] 4444 September, [facility] [place] [facility] [address] [id number] [place] [address]- 9735 September, [facility] [address] [id number] [place] [address]- 5779 September, [facility] [place] [facility] [address] [id number] [place] [address]- 5573 Aug, [facility] [address] [id number] [place] [address]- 3653 Aug, [facility] [place] [facility] [address] [id number] [place] [address]- 4995 Aug, [facility] [address] [id number] [place] [address]- 7803 Aug, [facility] [address] [id number] [place] [address]- 2300 Aug, [facility] [place] [facility] [address] [id number] [place] [address]- 9831 Aug, [facility] [address] [id number] [place] [address]- 5325 Aug, [facility] [place] [facility] [address] [id number] [place] [address]- 8784 Aug, [facility] [address] [id number] [place] [address]- 7752 Aug, [facility] [place] [facility] [address] [id number] [place] [address]- 6765 Aug, [facility] [place] [facility] [address] [id number] [place] [address]- 5951 14 Aug, 2013 [facility] [place] [facility] [address] [id number] [place] [address]- 9153 Aug, [facility] [place] [facility] [address] [id number] [place] [address]- 8441 Aug, [facility] [place] [facility] [address] [id number] [place] [address]- 6237 Aug, [facility] [place] [facility] [address] [id number] [place] [address]- 5677 Aug, [facility] [place] [facility] [address] [id number] [place] [address]- 7698 Jul, [facility] [place] [facility] [address] [id number] [place] 7665 Jul, [facility] [place] [facility] [address] [id number] [place] [address]- 6869 Jul, [facility] [place] [facility] [address] [id number] [place] [address]- 1922 Jul, [facility] [place] [facility] [address] [id number] [place] [address]- 7578 Jul, [facility] [place] [facility] [address] [id number] [place] [address]- 0997 Jul, [facility] [place] [facility] [address] [id number] [place] [address]- 3643 Jul, [facility] [place] [facility] [address] [id number] [place] [address]- 6296 Jul, [facility] [place] [facility] [address] [id number] [place] [address]- 8859 Jul, [facility] [place] [facility] [address] [id number] [place] [address]- 4383 Jul, [facility] [place] [facility] [address] [id number], [place] [address]- 0748 Jul, [facility] [place] [facility] [address] [id number] [place] [address]- 2551 Jul, [facility] [place] [facility] [address] [id number] [place] [address]- 9413 Jul, [facility] [place] [facility] [address] [id number] [place] [address]- 3384 Jul, [facility] [place] [facility] [address] [id number], [place] [address]- 2246 Jul, [facility] [place] [facility] [address] [id number] [place] [address]- 6326 Jun, [facility] [place] [facility] [address] [id number] [place] 5476 Jun, [facility] [place] [facility] [address] [id number] [place] [address]- 8026 Jun, [facility] [place] [facility] [address] [id number] [place] [address]- 5078 Jun, [facility] [place] [facility] [address] [id number] [place] [address]- 2230 Jun, [facility] [place] [facility] [address] [id number] [place] [address]- 1395 Jun, [facility] [place] [facility] [address] [id number] [place] [address]- 4441 May, [facility] [place] [facility] [address] [id number] [place] [address]- 9463 May, [facility] [place] [facility] [address] [id number] [place] [address]- 4019 May, [facility] [place] [facility] [address] [id number] [place] [address]- 4772 May, [facility] [place] [facility] [address] [id number] [place] [address]- 9552 May, [facility] [place] [facility] [address] [id number] [place] [address]- 6853 May, [facility] [place] [facility] [address] [id number] [place] [address]- 9855 May, [facility] [place] [facility] [address] [id number] [place] [address]- 2452 May, [facility] [place] [facility] [address] [id number] [place] [address]- 6865 May, [facility] [place] [facility] [address] [id number] [place] [address]- 1764 May, [facility] [place] [facility] [address] [id number] [place] [address]- 0788 May, [facility] [place] [facility] [address] [id number] [place] 3606 May, [facility] [place] [facility] [address] [id number] [place] [address]- 4922 May, [facility] [address] [id number] [place] [address]- 2371 May, [facility] [place] [facility] [address] [id number] [place] [address]- 1797 May, [facility] [address] [id number] [place] [address]- 5412 Apr, [facility] [place] [facility] [address] [id number] [place] [address]- 3927 Apr, [facility] [place] [facility] [address] [id number] [place] [address]- 0095 Apr, [facility] [place] [facility] [address] [id number] [place] [address]- 9253 Apr, [facility] [place] [facility] [address] [id number] [place] [address]- 9074 Apr, [facility] [place] [facility] [address] [id number] [place] [address]- 9317 Apr, [facility] [place] [facility] [address] [id number] [place] [address]- 1067 Apr, [facility] [place] [facility] [address] [id number] [place] [address]- 2878 Apr, [facility] [place] [facility] [address] [id number] [place] [address]- 0168 Apr, [facility] [place] [facility] [address] [id number], [place] [address]- 2254 Apr, [facility] [address] [id number] [place] [address]- 2245 Mar, [facility] [place] [facility] [address] [id number], [place] [address]- 6478 Mar, [facility] [place] [facility] [address] [id number] [place] [address]- 3613 Mar, [facility] [place] [facility] [address] [id number], [place] [address]- 9438 Mar, [facility] [place] [facility] [address] [id number] [place] [address]- 8729 Mar, [facility] [place] [facility] [address] [id number] [place] [address]- 0031 Mar, [facility] [address] [id number], [place] [address]- 5011 Mar, [facility] [place] [facility] [address] [id number] [place] [address]- 0582 Mar, [facility] [address] [id number], [place] [address] Mar, [facility] [place] [facility] [address] [id number], [place] [address] Mar, [facility] [place] [facility] [address] [id number], [place] [address] Mar, [facility] [place] [facility] [address] [id number], [place] [address] Mar, [facility] [place] [facility] [address] [id number], [place] [address] Mar, [facility] [place] [facility] [address] [id number], [place] [address] Mar, [facility] [place] [facility] [address] [id number], [place] [address] 18 Mar, 2013 [facility] [place] [facility] [address] [id number] [place] [address] 18 Mar, 2013 [facility] [place] [facility] [address] [id number] [place] [address]- [address] 14 Mar, 2013 [facility] [place] [facility] [address] [id number] [place] [address] 14 Mar, 2013 [facility] [place] [facility] [address] [id number] [place] [address] Mar, [facility] [place] [facility] [address] [id number] [place] [address] Mar, [facility] [place] [facility] [address] [id number] [place] [address] Mar, [facility] [place] [facility] [address] [id number] [place] [address] Mar, [facility] [place] [facility] [address] [id number] [place] [address] Mar, [facility] [place] [facility] [address] [id number] [place] [address] Feb, [facility] [place] [facility] [address] [id number] [place] [address] 18 Feb, 2013 [facility] [place] [facility] [address] [id number] [place] [address] Feb, [facility] [place] [facility] [address] [id number] [place] [address]- 78[address] 16 Feb, 2013 [facility] [place] [facility] [address] [id number] [place] [address]- 97[address] 15 Feb, 2013 [facility] [place] [facility] [address] [id number] [place] [address] Feb, [facility] [place] [facility] [address] [id number] [place] [address]- [address] Feb, [facility] [place] [facility] [address] [id number] [place] [address]- [address] Feb, [facility] [place] [facility] [address] [id number] [place] [address] Feb, [facility] [place] [facility] [address] [id number] [place] [address] Feb, [facility] [place] [facility] [address] [id number] [place] [address] 30 Jan, 2013 [facility] [place] [facility] [address] [id number] [place] [address]- [address] 26 Jan, 2013 [facility] [place] [facility] [address] [id number] [place] [address]- [address] 24 Jan, 2013 [facility] [place] [facility] [address] [id number] [place] [address]- [address] 23 Jan, 2013 [facility] [place] [facility] [address] [id number] [place] [address] Jan, [facility] [place] [facility] [address] [id number] [place] [address] Dec, [facility] [place] [facility] [address] [id number] [place] [address] Dec, [facility] [place] [facility] [address] [id number] [place] [address]- [address] Dec, [facility] [place] [facility] [address] [id number] [place] [address]- 18[address] Dec, [facility] [place] [facility] [address] [id number] [place] [address]- [address] 14 Dec, 2012 [facility] [place] [facility] [address] [id number] [place] [address] Dec, [facility] [place] [facility] [address] [id number] [place] [address] Dec, [facility] [place] [facility] [address] [id number] [place] [address]- [address] Nov, [facility] [place] [facility] [address] [id number] [place] [address] 2546 16 Nov, 2012 [facility] [address] [id number] [place] [address]- [address] 15 Nov, 2012 [facility] [address] [id number] [place] [address]- [address] 05 Nov, 2012 [facility] [address] [id number] [place] [address] 2546 Nov, [facility] [place] [facility] [address] [id number] [place] [address] Oct, [facility] [address] [id number] [place] [address] Oct, [facility] [address] [id number] [place] [address]- [address] Oct, [facility] [address] [id number] [place] [address]- 1735 September, [facility] [address] [id number] [place] [address]- [address]652 September, [facility] [address] [id number] [place] [address]- 1828 September, [facility] [address] [id number] [place] [address]- 6468 September, [facility] [address] [id number] [place] [address]- 288[address] September, [facility] [place] [facility] [address] [id number] [place] [address] September, [facility] [place] [facility] [address] [id number] [place] [address]- 0277 September, [facility] [place] [facility] [address] [id number] [place] [address]- 2825 30 Aug, 2012 [facility] [place] [facility] [address] [id number] [place] [address] 71[address] Aug, [facility] [place] [facility] [address] [id number] [place] [address]- [address]360 11 Aug, 2012 [facility] [place] [facility] [address] [id number] [place] [address]- 2924 29 Jul, 2012 [facility] [place] [facility] [address] [id number] [place] [address] 2545 27 Jul, 2012 [facility] [place] [facility] [address] [id number] [place] [address] 2548 26 Jul, 2012 [facility] [place] [facility] [address] [id number] [place] [address] 2541 20 Jul, 2012 [facility] [place] [facility] [address] [id number] [place] [address]- 3618 18 Jul, 2012 [facility] [place] [facility] [address] [facility] [id number] [place] [address]- [address]307 18 Jul, 2012 [facility] [place] [facility] [address] [id number] [place] [address]- 8959 13 Jul, 2012 [facility] [place] [facility] [address] [id number] [place] [address]- [address] 28 Jun, 2012 [facility] [place] [facility] [address] [id number] [place] [address]- 9235 27 Jun, 2012 [facility] [place] [facility] [address] [facility] [id number] [place] [address]- 5430 22 Jun, 2012 [facility] [place] [facility] [address] [id number] [place] [address]- 4696 20 Jun, 2012 [facility] [place] [facility] [address] [id number] [place] [address]- 2546 15 Jun, 2012 [facility] [place] [facility] [address] [id number] [place] [address]- 2544 15 Jun, 2012 [facility] [place] [facility] [address] [id number] [place] [address]- 2546 13 Jun, 2012 [facility] [place] [facility] [address] [address] [id number] [place] [address] Jun, [facility] [address] [id number] [place] [address] Jun, [facility] [place] [facility] [address] [id number] [place] [address] 3[address] Jun, [facility] [address] [id number] [place] [address] 75[address] May, [facility] [place] [facility] [address] [id number] [place] [address] 2598 May, [facility] [address] [id number] [place] [address] 5326 May, [facility] [address] [id number] [place] [address] 8626 May, [facility] [address] [id number] [place] [address] 5748 May, [facility] [address] [id number] [place] [address] 8319 May, [facility] [address] [id number] [place] [address] 9531 31 Apr, 2012 [facility] [address] [id number] [place] [address] 0792 31 Apr, 2012 [facility] [address] [id number] [place] [address] 2546 28 Apr, 2012 [facility] [place] [facility] [address] [id number] [place] [address] 2549 28 Apr, 2012 [facility] [place] [facility] [address] [id number] [place] [address] 2546 26 Apr, 2012 [facility] [place] [facility] [address] [id number] [place] [address] 2546 20 Apr, 2012 [facility] [address] [id number] [place] [address] 2541 Apr, [facility] [place] [facility] [address] [id number] [place] [address] 6339 Mar, [facility] [place] [facility] [address] [id number] [place] [address] 4826 Mar, [facility] [place] [facility] [address] [id number] [place] [address] 0291 Mar, [facility] [place] [facility] [address] [id number] [place] [address], [place] [address] 4[address] Mar, [facility] [place] [facility] [address] [id number] [place] [address] 1327 Mar, [facility] [place] [facility] [address] [id number] [place] [address] 9822 Mar, [facility] [place] [facility] [address] [id number] [place] [address]- 0412 Mar, [facility] [place] [facility] [address] [id number] [place] [address]- 1274 Mar, [facility] [place] [facility] [address] [id number] [place] [address]- 2454 Mar, [facility] [place] [facility] [address] [id number] [place] [address] 9848 Mar, [facility] [place] [facility] [address] [id number] [place] [address] 3659 Mar, [facility] [place] [facility] [address] [id number] [place] [address] 7996 Mar, [facility] [place] [facility] [address] [id number] [place] [address] 3843 Mar, [facility] [place] [facility] [address] [id number] [place] [address]- 7996 Mar, [facility] [place] [facility] [address] [id number] [place] [address] 3137 Mar, [facility] [place] [facility] [address] [id number] [place] [address] 2546 Mar, [facility] [place] [facility] [address] [id number] [place] [address] 9729 Mar, [facility] [place] [facility] [address] [id number] [place] [address] 8179 Feb, [facility] [place] [facility] [address] [id number] [place] [address] 5346 Feb, [facility] [place] [facility] [address] [id number] [place] [address] 2225 Feb, [facility] [place] [facility] [address] [id number] [place] [address] 9675 Feb, [facility] [place] [facility] [address] [id number] [place] [address]- 3886 Feb, [facility] [place] [facility] [address] [id number] [place] [address] 8857 Feb, [facility] [place] [facility] [address] [id number] [place] [address] 5376 Feb, [facility] [place] [facility] [address] [id number] [place] [address] 4862 Feb, [facility] [place] [facility] [address] [id number] [place] [address] 3500 Feb, [facility] [place] [facility] [address] [id number], [place] [address] Feb, [facility] [place] [facility] [address] [id number], [place] [address] 8[address] Feb, [facility] [place] [facility] [address] [id number] [place] [address] 4502 27 Jan, 2012 [facility] [place] [facility] [address] [id number] [place] [address]- 2870 25 Jan, 2012 [facility] [place] [facility] [address] [id number] [place] [address]- 7227 13 Jan, 2012 [facility] [place] [facility] [address] [id number] [place] [address] 5158 Jan, [facility] [place] [facility] [address] [id number] [place] [address]- 9565 Jan, [facility] [place] [facility] [address] [id number] [place] [address]- 0151 Dec, [facility] [place] [facility] [address] [id number] [place] [address]- 5535 Dec, [facility] [place] [facility] [address] [id number] [place] [address]- 7897 Dec, [facility] [place] [facility] [address] [id number] [place] [address] 9207 Dec, [facility] [place] [facility] [address] [id number] [place] [address]- 3913 Dec, [facility] [place] [facility] [address] [id number] [place] [address]- 7282 Dec, [facility] [place] [facility] [address] [id number] [place] [address]- 0697 Dec, [facility] [place] [facility] [address] [id number] [place] [address] 2370 Dec, [facility] [place] [facility] [address] [id number] [place] [address] 6024 Nov, [facility] [place] [facility] [address] [id number] [place] [address]- 5352 Nov, [facility] [place] [facility] [address] [id number] [place] [address]- 9905 Nov, [facility] [place] [facility] [address] [id number] [place] [address]- 5166 Nov, [facility] [place] [facility] [address] [id number] [place] [address]- 3776 Nov, [facility] [place] [facility] [address] [id number] [place] [address]- 1223 Oct, [facility] [address] [id number] [place] [address]- 0020 Oct, [facility] [place] [facility] [address] [id number] [place] [address] 3922 September, [facility] [place] [facility] [address] [id number] [place] [address] September, [facility] [place] [facility] [address] [id number] [place] [address]- 0232 September, [facility] [address] [id number] [place] [address] September, [facility] [place] [facility] [address] [id number] [place] [address] September, [facility] [place] [facility] [address] [id number] [place] [address]- 9225 September, [facility] [place] [facility] [address] [id number] [place] [address]- 7681 September, [facility] [place] [facility] [address] [id number] [place] [address]- 1144 September, [facility] [place] [facility] [address] [id number] [place] [address]- 7177 September, [facility] [place] [facility] [address] [id number] [place] [address]- 9058 September, [facility] [place] [facility] [address] [id number] [place] [address]- 3379 September, [facility] [place] [facility] [address] [id number] [place] [address]- 3711 September, [facility] [place] [facility] [address] [id number] [place] [address]- 5136 September, [facility] [place] [facility] [address] [id number] [place] [address]- 9224 September, [facility] [place] [facility] [address] [id number], [place] [address]- 0476 24 Aug, 2011 [facility] [address] [id number] [place] [address]- 4544 20 Aug, 2011 [facility] [place] [facility] [address] [id number] [place] [address]- 3511 13 Aug, 2011 [facility] [address] [id number] [place] [address]- 6066 11 Aug, 2011 [facility] [place] [facility] [address] [id number] [place] [address]- 8016 23 Jul, 2011 [facility] [address] [id number] [place] [address]- 1498 13 Jul, 2011 [facility] [place] [facility] [address] [id number] [place] [address]- 9151 13 Jul, 2011 [facility] [address], [place] [address] 1356 28 Jun, [address] [facility] [address] [id number] [address] 26 Jun, 2011 [facility] [address] [id number] [place] [address]- 2477 13 Jun, 2011 [facility] [address] [id number] [place] [address]- 1206 10 Jun, 2011 [facility] [address] [id number], [place] [address]- 1886 07 Jun, 2011 [facility] [place] [facility] [address] [id number], [place] [address]- 2886 07 Jun, 2011 [facility] [place] [facility] [address] [id number] [place] [address]- 5726 03 Jun, 2011 [facility] [place] [facility] [address] [id number], [place] [address] 5656 02 Jun, 2011 [facility] [place] [facility] [address] [id number], [place] [address]- 9608 May, [facility] [place] [facility] [address] [id number] [place] [address]- 0271 30 May, 2011 [facility] [address] [id number] [place] [address]- 3244 May, [facility] [address] [id number] [place] [address]- 1198 May, [facility] [address] [id number] [place] [address]- 7052 May, [facility] [address] [id number] [place] [address]- 6182 May, [facility] [address] [id number] [place] [address]- 8428 May, [facility] [address] [id number] [place] [address]- 9935 May, [facility] [address] [id number] [place] [address]- 4108 May, [facility] [address] [id number] [place] [address]- 2630 May, [facility] [address] [id number] [place] [address]- 6943 May, [facility] [address] [id number] [place] [address]- 6851 May, [facility] [address] [id number] [place] [address]- 2761 May, [facility] [address] [id number] [place] [address]- 2335 May, [facility] [place] [facility] [address] [id number] [place] [address]- 5803 Apr, [facility] [place] [facility] [address] [id number] [place] [address]- 7813 16 Apr, 2011 [facility] [address] [id number] [place] [address]- 1696 05 Apr, 2011 [facility] [place] [facility] [address] [id number] [place] [address]- 8457 17 Mar, 2011 [facility] [place] [facility] [address] [id number] [place] [address]- 1516 Mar, [facility] [place] [facility] [address] [id number] [place] [address]- 7016 31 Feb, 2011 [facility] [place] [facility] [address] [id number] [place] [address]- 2516 Feb, [facility] [place] [facility] [address] [id number] [place] [address]- 0739 Feb, [facility] [place] [facility] [address] [id number] [place] 1527 20 Feb, 2011 [facility] [place] [facility] [address] [id number] [place] [address]- 9174 Feb, [facility] [place] [facility] [address] [id number] [place] [address]- 1092 28 Apr, 2010 [facility] [place] [facility] [address] [id number] [place] [address]- 6658 22 Apr, 2010 [facility] [place] [facility] [address] [id number] [place] [address]- 4446 16 Apr, 2010 [facility] [place] [facility] [address] [id number], [place] [address]- 1915 15 Apr, 2010 [facility] [place] [facility] [address] [id number] [place] [address] 254 15 Apr, 2010 [facility] [place] [facility] [address] [id number] [place] [address]- 1878 Apr, [facility] [place] [facility] [address] [id number] [place] [address]- 6643 24 Mar, 2010 [facility] [place] [facility] [address] [id number] [place] [address]- 4173 17 Mar, 2010 [facility] [place] [facility] [address], [place] [address]- 0654 17 Mar, 2010 [facility] [address], [place] [address] 8967 28 Feb, 2010 [facility] [address], [place] [address]- 9749 Feb, [facility] [address], [place] [address] 0813 Feb, [facility] [address], [place] [address] 9752 15 Feb, 2010 [facility] [id number] [place] [address]- 1467 Dec, [facility] [id number] [place] [address]- 4219 Dec, [facility] [id number] [place] [address]- 4073 Oct, [facility] [address], [place] [address]- 6173 Mar, [facility] [address], [place] [address]- 2625 Mar, [facility] [address], [place] [address] 5929 September, IMMUNIZATIONS No Known Immunizations SOCIAL HISTORY Never Assessed REASON FOR VISIT Early Refill Request PLAN OF CARE VITAL SIGNS MEDICATIONS Unknown [...]
--- OUTSIDE RECORDS SUMMARY | 2017-10-05 16:01 | XMS REPORT ---
Author Author VALERIE ZAVALA [facility] Address [address] [place] [address] Care Team Providers Care Intermediate Teacher Name Role Phone VALERIE ZAVALA Unavailable PROBLEMS Type Condition ICD9-CM Code [id number] Code Onset Dates Condition Status SNOMED Code Problem Insomnia, unspecified type G47.00 Active 748630261 Problem Post-traumatic stress disorder, chronic F43.12 Active 53942263 Problem Pulmonary emphysema, unspecified emphysema type J43.9 Active 03761578 Problem Panic attacks F41.0 Active 865741034 Problem UTI symptoms R39.9 Active 97030729 Problem Other emphysema J43.8 Active 70435230 Problem Pain in right knee M25.561 Active 78689189 Problem Hypokalemia E87.6 Active 198363889 Problem Essential hypertension I10 Active 81901535 Problem Gastroesophageal reflux disease without esophagitis K21.9 Active 212672196 Problem Anxiety F41.9 Active 17697106 Problem Neuropathy G62.9 Active 971874345 Problem Back pain M54.9 Active 491546489 Problem Chronic pain G89.29 Active 95051079 Problem Right low back pain, with sciatica presence unspecified M54.5 Active 035965112 Problem Right foot pain M79.671 Active 13121602 Problem Tobacco abuse Z72.0 Active 64422069 Problem Weight decrease R63.4 Active 297499926 Problem Bone pain M89.8X9 Active 33710051 Problem Right upper quadrant abdominal pain R10.11 Active 106401626 Problem Generalized anxiety disorder F41.1 Active 61962415 Problem Depression, unspecified depression type F32.9 Active 11014151 Problem Weight loss R63.4 Active 272483223 ALLERGIES Substance Reaction Event Type Date Status Sulfur rash Drug Allergy Aug, Active Remeron itching Drug Allergy Aug, Active Morphine Sulfate nausea Drug Allergy Aug, Active Fentanyl 25 Mcg/hr Patch 72 Hr Unknown Non Drug Allergy Aug, Active SOCIAL HISTORY Never Assessed PLAN OF CARE Activity Details Follow Up 4 Weeks Reason:pain mgmt VITAL SIGNS Height 64 in 2016-09-05 Weight 118.7 lbs 2016-09-05 Temperature 98.6 degrees Fahrenheit 2016-09-05 Heart Rate 96 bpm 2016-09-05 Respiratory Rate 20 2016-09-05 BMI 20.37 kg/m2 2016-09-05 Blood pressure systolic 140 mmHg 2016-09-05 Blood pressure diastolic 90 mmHg 2016-09-05 MEDICATIONS Medication Instructions Dosage Frequency Start Date End Date Duration Status Levofloxacin 750 MG Orally Once a day 1 tablet 24h Active Dicyclomine HCl 20 MG Orally 2 times a day 1 tablet 30 to 60 minutes before meals 12h 30 days Active Toprol XL 25 MG Orally Once a day 1 tablet 24h Aug, Active Phenazopyridine HCl 200 MG Orally Three times a day 1 tablet after meals 8h Active Lactobacillus - Orally 4 times a day 2 capsules 6h Active Loratadine 10 MG Orally Once a day 1 tablet 24h 30 Active Vagifem 10 MCG Vaginal Two times a Week 1 tablet Jul, 30 day( s) Active Ibuprofen 600 MG Orally Three times a day 1 tablet with food as needed 8h Active Lansoprazole 30 MG Orally Once a day 1 capsule 24h 90 days Active Chlordiazepoxide HCl 10 mg Orally Three times a day 1 capsule 8h Aug, 28 days Active Macrobid 100 mg Orally Once a day 1 capsule with food 24h Aug, Feb, 90 days Active Robaxin 500 MG Orally 4 times a day 1 tablet 6h Aug, 30 days Active Motrin 800 MG Orally Three times a day 1 tablet with food or milk 8h Active Cefdinir 300 MG Orally every 12 hrs 1 capsule 12h Active Potassium Chloride ER 20 MEQ Orally Once a day 1 capsule 24h Mar, 90 days Active Percocet 10-325 MG Orally 4 times a day 1 tablet as needed 6h Jul, 28 days Active Trazodone HCl 50 mg Orally Once a day 1-2 tablet at bedtime as needed 24h Apr, Active RESULTS No Results PROCEDURES Procedure Date Ordered Result Body Site [facility] VISIT ESTABLISHED PATIENT September 05, 2016 IMMUNIZATIONS No Known Immunizations MEDICAL (GENERAL) [...]
--- OUTSIDE RECORDS SUMMARY | 2017-10-05 16:03 | XMS REPORT ---
Author Author VALERIE ZAVALA [facility] Address [address] [place] [address] Care Team Providers Care Harness Racing Handicapper Name Role Phone VALERIE ZAVALA Unavailable PROBLEMS Type Condition ICD9-CM Code [id number] Code Onset Dates Condition Status SNOMED Code Problem Weight loss R63.4 Active 354663827 Problem Pulmonary emphysema, unspecified emphysema type J43.9 Active 43219281 Problem Insomnia, unspecified type G47.00 Active 543858475 Problem Other emphysema J43.8 Active 50766717 Problem Pain in right knee M25.561 Active 64784042 Problem Anxiety F41.9 Active 12581302 Problem Hypokalemia E87.6 Active 012625831 Problem Generalized anxiety disorder F41.1 Active 09967056 Problem Gastroesophageal reflux disease without esophagitis K21.9 Active 006325778 Problem Post-traumatic stress disorder, chronic F43.12 Active 44523796 Problem Neuropathy G62.9 Active 689897088 Problem Essential hypertension I10 Active 26818223 Problem Right foot pain M79.671 Active 12777178 Problem Back pain M54.9 Active 441008779 Problem UTI symptoms R39.9 Active 90249419 Problem Right low back pain, with sciatica presence unspecified M54.5 Active 848689369 Problem Depression, unspecified depression type F32.9 Active 27285677 Problem Tobacco abuse Z72.0 Active 88649859 Problem Chronic pain G89.29 Active 04005161 Problem Weight decrease R63.4 Active 136105340 Problem Bone pain M89.8X9 Active 71486128 Problem Right upper quadrant abdominal pain R10.11 Active 998047832 ALLERGIES No Information SOCIAL HISTORY Never Assessed PLAN OF CARE VITAL SIGNS MEDICATIONS Medication Instructions Dosage Frequency Start Date End Date Duration Status Percocet 10-325 MG Orally 4 times a day 1 tablet as needed 6h 27 Jun, 2016 28 days Active RESULTS No Results [...]
--- OUTSIDE RECORDS SUMMARY | 2017-10-05 16:03 | XMS REPORT ---
Author Author VALERIE ZAVALA Organization [facility] Address [address] [place] [address] Care Team Providers Care Social Insurance Specialist Name Role Phone VALERIE ZAVALA Unavailable PROBLEMS Type Condition ICD9-CM Code [id number] Code Onset Dates Condition Status SNOMED Code Problem Weight loss R63.4 Active 679678836 Problem Pulmonary emphysema, unspecified emphysema type J43.9 Active 12475630 Problem Insomnia, unspecified type G47.00 Active 103881380 Problem Other emphysema J43.8 Active 52934679 Problem Right foot pain M79.671 Active 85745259 Problem Neuropathy G62.9 Active 740919801 Problem Hypokalemia E87.6 Active 928508322 Problem Generalized anxiety disorder F41.1 Active 87472559 Problem Gastroesophageal reflux disease without esophagitis K21.9 Active 543313611 Problem Essential hypertension I10 Active 41051855 Problem Anxiety F41.9 Active 06207890 Problem Post-traumatic stress disorder, chronic F43.12 Active 05012412 Problem UTI symptoms R39.9 Active 32977308 Problem Bone pain M89.8X9 Active 35048752 Problem Right low back pain, with sciatica presence unspecified M54.5 Active 246929501 Problem Pain in right knee M25.561 Active 54337206 Problem Depression, unspecified depression type F32.9 Active 84263961 Problem Weight decrease R63.4 Active 867156071 Problem Back pain M54.9 Active 042670836 Problem Tobacco abuse Z72.0 Active 70928238 Problem Chronic pain G89.29 Active 05584840 Problem Right upper quadrant abdominal pain R10.11 Active 931742422 ALLERGIES Substance Reaction Event Type Date Status Sulfur rash Drug Allergy Apr, Active Remeron itching Drug Allergy Apr, Active Morphine Sulfate nausea Drug Allergy Apr, Active Fentanyl 25 Mcg/hr Patch 72 Hr Unknown Non Drug Allergy Apr, Active SOCIAL HISTORY No smoking Hx information available PLAN OF CARE Activity Details Follow Up 1 Week Reason:FU for insomnia VITAL SIGNS Height 64 in 2016-05-02 Weight 118.0 lbs 2016-05-02 Temperature 97.9 degrees Fahrenheit 2016-05-02 Heart Rate 82 bpm 2016-05-02 Respiratory Rate 18 2016-05-02 BMI 20.25 kg/m2 2016-05-02 Blood pressure systolic 142 mmHg 2016-05-02 Blood pressure diastolic 82 mmHg 2016-05-02 MEDICATIONS Medication Instructions Dosage Frequency Start Date End Date Duration Status Ibuprofen 600 MG Orally Three times a day 1 tablet with food as needed 8h Active Zantac 150 MG Orally Twice a day 1-2 tablets as needed for heartburn 12h Active Percocet 10-325 MG Orally 4 times a day 1 tablet as needed 6h Jul, 28 days Active Loratadine 10 MG Orally Once a day 1 tablet 24h 30 Active Chlordiazepoxide HCl 10 mg Orally 1 in AM and 1 in afternoon and 2 at hs 1 capsule Active Linzess 290 MCG Orally Once a day 1 capsule 24h 90 Active Potassium Chloride ER 20 MEQ Orally Once a day 1 capsule 24h Mar, 90 days Active Dicyclomine HCl 20 mg Orally 3 times a day 1 tablet 30 to 60 minutes before meals 8h 90 days Active Trazodone HCl 50 mg Orally Once a day 1-2 tablet at bedtime as needed 24h Apr, Active RESULTS Name Result Date Reference Range [facility] 2016-05-02 Glucose, Serum 99 65-99 BUN 7 8-27 Creatinine, Serum 0.89 0.57-1.00 eGFR If NonAfricn Am 68 >59 eGFR If Africn Am 78 >59 BUN/Creatinine Ratio 8 11-26 Sodium, Serum 140 134-144 Potassium, Serum 3.3 3.5-5.2 Chloride, Serum 99 96-106 Carbon Dioxide, Total 28 18-29 Calcium, Serum 9.2 8.7-10.3 PROCEDURES Procedure Date Ordered Related Diagnosis Body Site [facility] May 02, 2016 VENIPUNCT, ROUTINE* May 02, 2016 Office Visit, Est Pt., Level 3 May 02, 2016 [facility] VISIT ESTABLISHED PATIENT May 02, 2016 IMMUNIZATIONS No Known Immunizations
--- OUTSIDE RECORDS SUMMARY | 2017-10-05 16:03 | XMS REPORT ---
Author Author VALERIE ZAVALA [facility] Address [address] [place] [address] Care Team Providers Care Specialty Sales Consultant Name Role Phone VALERIE ZAVALA Unavailable PROBLEMS Type Condition ICD9-CM Code WSS72-VZ Code Onset Dates Condition Status SNOMED Code Problem Generalized anxiety disorder F41.1 Active 60597188 Problem Hypokalemia E87.6 Active 306073539 Problem Right low back pain, with sciatica presence unspecified M54.5 Active 721486866 Problem Post-traumatic stress disorder, chronic F43.12 Active 58429767 Problem Pain in right knee M25.561 Active 76052183 Problem Gastroesophageal reflux disease without esophagitis K21.9 Active 092435803 Problem UTI symptoms R39.9 Active 83939857 Problem Essential hypertension I10 Active 06634172 Problem Anxiety F41.9 Active 82877619 Problem Neuropathy G62.9 Active 660797318 Problem Other chronic pain G89.29 Active 67085976 Problem Generalized abdominal pain R10.84 Active 612597597 Problem Chronic pain G89.29 Active 80327633 Problem Back pain M54.9 Active 254910233 Problem Right foot pain M79.671 Active 23976944 Problem Panic attacks F41.0 Active 959311383 Problem Other emphysema J43.8 Active 91413950 Problem Kidney stones N20.0 Active 11073052 Problem Renal calculus, right N20.0 Active 05280635 Problem Weight decrease R63.4 Active 803413133 Problem Tobacco abuse Z72.0 Active 36823485 Problem Bone pain M89.8X9 Active 49301287 Problem Depression, unspecified depression type F32.9 Active 42622180 Problem Insomnia, unspecified type G47.00 Active 621925321 Problem Pulmonary emphysema, unspecified emphysema type J43.9 Active 08511456 Problem Right upper quadrant abdominal pain R10.11 Active 239557675 Problem Weight loss R63.4 Active 005999320 ALLERGIES No Information ENCOUNTERS Encounter Location Date Diagnosis [facility] [id number] [place] [address] 20639- 5737 September, RLQ abdominal pain R10.31 ; Low back pain M54.5 and Other chronic pain G89.29 [facility] [id number] [place] [address] 99462 2546 Aug, Medicare welcome exam Z00.00 [facility] [id number] [place] [address] 07931 2546 27 Aug, 2017 [facility] [id number] [place] [address] 21746 2546 Aug, Acute pyelonephritis N10 and Medicare welcome exam Z00.00 [facility] [id number] [place] [address] 68705 -4400 Aug, Dysuria R30.0 and Acute pyelonephritis N10 [facility] [id number] [place] [address] 66977 2546 Aug, [facility] [id number] [place] [address] 77577 2542 Aug, [facility] [id number] [place] [address] 62658 2546 Aug, [facility] [id number] [place] [address] 36425- 7929 Aug, [facility] [id number] [place] [address] 21375 2546 Jul, [facility] [id number] [place] [address] 05393- 7580 Jul, Renal calculus, right N20.0 and Medicare welcome exam Z00.00 [facility] [address] [address] 2541 Jul, Dysuria R30.0 and Renal calculus, right N20.0 [facility] [id number] [place] [address] 93448- 5076 Jul, Medicare welcome exam Z00.00 [facility] [id number] [place] [address] 01457- 8152 13 Jun, 2017 Gastroesophageal reflux disease without esophagitis K21.9 and Generalized abdominal pain R10.84 [facility] [id number] [place] [address] 83419- 0908 09 Jun, 2017 Medicare welcome exam Z00.00 [facility] [id number] [place] [address] 60793- 1149 Jun, [facility] [id number] [place] [address] 86568- 7267 Jun, Medicare welcome exam Z00.00 and Encounter for screening mammogram for malignant neoplasm of breast Z12.31 [facility] [id number] [place] [address] 01979- 4791 Jun, Chronic pain G89.29 [facility] [id number] [place] [address] 56137- 7913 May, [facility] [id number] [place] [address] 73336- 3520 May, Pelvic pain R10.2 [facility] [id number] [place] [address] 85937- 6443 May, Pelvic pain R10.2 [facility] [id number] [place] [address] 89198 -4749 May, Renal calculus, right N20.0 [facility] [id number] [place] [address] 14782- 3598 May, Hematuria, unspecified type R31.9 and Nephrolithiasis N20.0 [facility] [id number] [place] [address] 36629 -2553 May, Dysuria R30.0 and Nephrolithiasis N20.0 [facility] [address] [address] 6996 May, [facility] [id number] [place] [address] 65594 -5577 May, Abdominal pain R10.9 and Kidney stone N20.0 [facility] [id number] [place] [address] 15088- 9775 May, [facility] [id number] [place] [address] 32306- 2635 May, Chronic pain G89.29 and Panic attacks F41.0 [facility] [id number] [place] [address] 88513- 9580 May, Urinary tract infection without hematuria, site unspecified N39.0 [facility] [id number] [place] [address] 42401- 8590 Apr, Right lower quadrant abdominal pain R10.31 and Abnormal serum lipase level R74.8 [facility] [id number] [place] [address] 22064- 8322 Apr, Recurrent urinary tract infection N39.0 [facility] [id number] [place] [address] 68183- 3980 Apr, UTI symptoms R39.9 ; Recurrent urinary tract infection N39.0 and Pelvic pain R10.2 [facility] [id number] [place] [address] 80671- 6915 Apr, Chronic pain G89.29 and Panic attacks F41.0 [facility] [id number] [place] [address] 68172- 5946 Apr, Dysuria R30.0 [facility] [id number] [place] [address] 10897- 0711 Apr, [facility] [address] [address]- 5718 Apr, Dysuria R30.0 and Urinary tract infection without hematuria , site unspecified N39.0 [facility] [address], [place] [address]- 8559 Mar, UTI symptoms R39.9 [facility] [id number] [place] [address] 23843- 8310 Mar, [facility] [id number] [place] [address] 80469- 2556 Mar, Panic attacks F41.0 and Chronic pain G89.29 [facility] [id number] [place] [address] 71244- 3308 Mar, [facility] [id number] [place] [address] 59390- 3009 Mar, Dysuria R30.0 [facility] [id number] [place] [address] 64757- 2802 Mar, Dysuria R30.0 [facility] [id number] [place] [address] 55921- 2816 Feb, Chronic pain G89.29 ; Shortness of breath R06.02 ; Weight loss R63.4 ; Encounter for immunization Z23 ; Bone pain M89.8X9 ; Right anterior knee pain M25.561 and Cough R05 [facility] [id number] [place] [address] 19074- 9334 Feb, Shortness of breath R06.02 [facility] [id number] [place] [address] 77999- 9904 Feb, [facility] [id number] [place] [address] 90717- 2587 Feb, Panic attacks F41.0 and Chronic pain G89.29 [facility] [id number] [place] [address] 59732- 0667 Feb, [facility] [id number] [place] [address] 46701- 9467 Feb, Panic attacks F41.0 ; Shortness of breath R06.02 and Encounter for immunization Z23 [facility] [id number] [place] [address] 34096- 6994 Jan, [facility] [address] 60084- 6059 Jan, Anxiety F41.9 and Chronic pain G89.29 [facility] [address] 77831- 7663 Dec, Anxiety F41.9 and Chronic pain G89.29 [facility] [address] 35626- 3671 Nov, Chronic pain G89.29 [facility] [address] 83145- 7081 Nov, Anxiety F41.9 [facility] [address] 38882- 0835 Nov, Chronic pain G89.29 ; Essential hypertension I10 and Other emphysema J43.8 [facility] [address] 56287- 8374 Oct, Anxiety F41.9 [facility] [id number] [place] [address] 49137- 1827 Oct, [facility] [id number] [place] [address] 11378- 4521 Oct, Chronic pain G89.29 [facility] [id number] [place] [address] 35554- 0331 September, Recurrent UTI N39.0 ; Neuropathy G62.9 and Anxiety F41.9 [facility] [address] 02490- 0234 September, [facility] [id number] [place] [address] 63965- 3742 September, Chronic pain G89.29 [facility] [address] [address]- 1154 September, [facility] [id number] [place] [address] 17115- 1449 Aug, Post-traumatic stress disorder, chronic F43.12 ; Chronic urinary tract infection N39.0 ; Gastroesophageal reflux disease without esophagitis K21.9 ; Chronic pain G89.29 ; Essential hypertension I10 and Tobacco abuse Z72.[address] [facility] [address], [place] [address] -[address]33 Aug, [facility] [id number] [place] [address] 27930- 3183 Aug, Chronic pain G89.29 [facility] [id number] [place] [address] 55112- 0356 Aug, Insomnia, unspecified type G47.00 [facility] [id number] [place] [address] 91877- 2990 Aug, [facility] [id number] [place] [address] 77173- 4533 Jul, Chronic pain G89.29 [facility] [id number] [place] [address] 99947- 4253 Jul, [facility] [address], [place] [address]- 3539 Jul, [facility] [address] [address]- 7114 Jul, [facility] [address], [place] [address]- 2175 15 Jul, 2016 Recurrent UTI (urinary tract infection) N39.0 [facility] [id number] [place] [address] 96498- 1143 14 Jul, 2016 [facility] [address], [place] [address]- 9923 Jun, Chronic pain G89.29 [facility] [address], [place] [address]- 4829 17 Jun, 2016 [facility] [id number] [place] [address] 67382- 7898 Jun, [facility] [id number] [place] [address] 54306- 0729 May, Chronic pain G89.29 [facility] [id number] [place] [address] 81413- 2003 May, Weight loss R63.4 and Shortness of breath R06.02 [facility] [id number] [place] [address] 82476- 2881 May, Chronic pain G89.29 ; Weight loss R63.4 and Tobacco abuse Z72.0 [facility] [id number] [place] [address] 78365- 5891 May, [facility] [id number] [place] [address] 72492- 1732 May, Hypoxia R09.02 [facility] [id number] [place] [address] 10611- 4863 May, [facility] [id number] [place] [address] 42126- 0368 May, Pulmonary emphysema, unspecified emphysema type J43.9 [facility] [id number] [place] [address] 21372 -4758 May, [facility] [id number] [place] [address] 01419- 7200 May, [facility] [id number] [place] [address] 85881- 5582 May, [facility] [id number] [place] [address] 46713- 7382 May, Chronic pain G89.29 ; Encounter for immunization Z23 ; Right anterior knee pain M25.561 and Cough R05 [facility] [address] [address]- 5260 Apr, Chronic pain G89.29 [facility] [id number] [place] [address], [place] [address]- 3156 Apr, [facility] [id number] [place] [address] 75381- 9248 Apr, Generalized anxiety disorder F41.1 and Depression, unspecified depression type F32.9 [facility] [id number] [place] [address] 60605- 3615 Apr, Chronic pain G89.29 ; Hypokalemia E87.6 and Insomnia, unspecified type G47.00 [facility] [id number] [place] [address] 41257- 2688 Apr, [facility] [id number] [place] [address] 01698- 1501 Apr, Chronic pain G89.29 [facility] [id number] [place] [address] 20203- 8301 Apr, [facility] [id number] [place] [address] 64346- 8922 Mar, [facility] [id number] [place] [address] 97463- 1510 Mar, Insomnia, unspecified type G47.00 [facility] [id number] [place] [address] 41167- 8973 Mar, Chronic pain G89.29 [facility] [id number] [place] [address] 38693- 2590 Mar, [facility] [id number] [place] [address] 41454- 7011 Feb, [facility] [id number] [place] [address] 32256- 8649 Feb, [facility] [id number] [place] [address] 97300- 4885 Feb, [facility] [address], [place] [address]- 4936 Feb, [facility] [id number] [place] [address] 81090- 9320 Feb, [facility] [id number] [place] [address] 89668- 3094 Jan, [facility] [id number] [place] [address] 21521- 3429 26 Jan, 2016 [facility] [id number] [place] [address] 11982- 7839 20 Jan, 2016 [facility] [id number] [place] [address] 56103- 1007 13 Jan, 2016 [facility] [id number] [place] [address] 75711- 6515 Jan, [facility] [id number] [place] [address] 04255- 3879 07 Jan, 2016 Chronic pain G89.29 [facility] [id number] [place] [address] 72639- 4367 Jan, Chronic pain G89.29 and Fibromyalgia M79.7 [facility] [id number] [place] [address] 06455- 4999 Dec, Depression, unspecified depression type F32.9 and Generalized anxiety disorder 300.02 [facility] [id number] [place] [address] 97478- 5136 Dec, Dysthymia F34.1 ; Insomnia, unspecified type G47.00 and Chronic pain G89.29 [facility] [id number] [place] [address] 28339- 8125 Dec, Chronic pain G89.29 [facility] [id number] [place] [address] 89720- 9983 Dec, Insomnia, unspecified type G47.00 [facility] [id number] [place] [address] 26225- 6054 Dec, Fibromyalgia M79.7 and Chronic pain G89.29 [facility] [id number] [place] [address] 75771- 8949 Dec, [facility] [id number] [place] [address] 03616- 8486 Dec, [facility] [id number] [place] [address] 72377- 9717 Dec, [facility] [id number] [place] [address] 53635- 6143 Dec, [facility] [id number] [place] [address] 42467- 3205 Dec, Chronic pain G89.29 [facility] [id number] [place] [address] 93497- 3372 Dec, [facility] [id number] [place] [address] 24799- 2810 Dec, [facility] [id number] [place] [address] 14300- 6352 Dec, [facility] [id number] [place] [address] 49141- 2855 Dec, Chronic pain G89.29 and Dysthymia F34.1 [facility] [id number] [place] [address] 12647- 3541 Nov, [facility] [id number] [place] [address] 04245- 1230 Nov, Hypokalemia E87.6 and Chronic pain G89.29 [facility] [id number] [place] [address] 12908- 4236 Nov, Back pain M54.9 and Pain in right knee M25.561 [facility] [id number] [place] [address] 35910- 7726 Nov, [facility] [id number] [place] [address] 07886- 4216 Nov, Chronic pain G89.29 [facility] [address] [place] [address] 26047 2546 Nov, Chronic pain G89.29 ; Weight loss R63.4 ; Bone pain M89.8X9 and Insomnia, unspecified type G47.00 [facility] [id number] [place] [address] 13229- 8592 Nov, Chronic pain G89.29 [facility] [id number] [place] [address] 77244 2546 Nov, Chronic pain G89.29 [facility] [id number] [place] [address] 16239- 0572 Oct, Chronic pain G89.29 [facility] [id number] [place] [address] 99773- 3366 Oct, UTI symptoms R39.9 [facility] [id number] [place] [address] 11877- 9973 Oct, Chronic pain G89.29 [facility] [id number] [place] [address] 79180- 3576 Oct, Chronic pain G89.29 [facility] [id number] [place] [address] 20282 254 Oct, Chronic pain G89.29 [facility] [id number] [place] [address] 78288- 8300 Oct, Right upper quadrant abdominal pain R10.11 [facility] [id number] [place] [address] 52616- 2070 Oct, Chronic pain G89.29 [facility] [id number] [place] [address] [id number] Oct, [facility] [id number] [address] September, Chronic pain G89.29 [facility] [id number] [place] [address] 21472- 9242 September, Dysuria R30.0 and Urinary tract infection without hematuria , site unspecified N39.0 [facility] [id number] [place] [address] 07393- 2613 September, [facility] [id number] [place] [address] 19514- 8765 September, Dysuria R30.0 [facility] [id number] [place] [address] 03938- 4129 September, Chronic pain G89.29 [facility] [id number] [place] [address] 91391- 8423 September, Chronic pain G89.29 and Essential hypertension I10 [facility] [id number] [place] [address] 82209- 6906 September, [facility] [id number] [place] [address] 34599- 8650 September, [facility] [id number] [place] [address] 20397- 9746 September, [facility] [id number] [place] [address] 21611- 6842 Aug, UTI symptoms R39.9 [facility] [id number] [place] [address] 65065- 7614 Aug, Dysuria R30.0 [facility] [id number] [place] [address] 31908- 5263 Aug, [facility] [id number] [place] [address] 10126- 3464 Aug, [facility] [id number] [place] [address] 86685- 1019 Aug, [facility] [id number] [address] 6042 Aug, Chronic pain G89.29 [facility] [id number] [place] [address] [id number]- [phone] 07 Aug, 2015 Dysthymia F34.1 [facility] [id number] [address] Aug, Conjunctivitis, unspecified conjunctivitis type, unspecified laterality H10.9 [facility] [id number] [place] [address] 43287- 7173 31 Jul, 2015 Chronic pain G89.29 ; Back pain M54.9 ; Tobacco abuse Z72.0 and Weight decrease R63.4 [facility] [id number] [place] [address] 64231- 6714 30 Jul, 2015 [facility] [id number] [place] [address] 00087- 5382 30 Jul, 2015 [facility] [id number] [place] [address] 75620- 2829 24 Jul, 2015 Chronic pain G89.29 [facility] [id number] [place] [address] 75433- 8618 22 Jul, 2015 [facility] [address] [address] 5575 Jul, [facility] [id number] [place] [address] 86997- 5883 18 Jul, 2015 [facility] [address], [place] [address]- 6968 17 Jul, 2015 [facility] [id number] [place] [address] 20949- 8428 17 Jul, 2015 Chronic pain G89.29 [facility] [address], [place] [address]- 4869 16 Jul, 2015 Chronic pain G89.29 [facility] [id number] [address] 6024 Jul, [facility] [id number] [place] [address] 36336- 7951 Jul, [facility] [id number] [place] [address] 46797- 3160 Jul, [facility] [id number] [place] [address] 47312- 4298 Jul, [facility] [id number] [place] [address] 11900- 1616 Jun, [facility] [facility] [id number] [place] [address] 14503- 7932 Jun, Depression, unspecified depression type F32.9 [facility] [facility] [id number] [place] [address] 36592- 1517 Jun, Pain in right knee M25.561 [facility] [facility] [id number] [place] [address] 26269- 0133 Jun, Chronic pain G89.29 ; Back pain M54.9 ; Bone pain M89.8X9 and Weight loss R63.4 [facility] [facility] [id number] [place] [address] 99244- 9987 Jun, [facility] [facility] [id number] [place] [address] 45856- 3090 May, [facility] [id number] [place] [address] 21184- 3816 May, UTI symptoms R39.9 ; Pain in right knee M25.561 ; Right low back pain, with sciatica presence unspecified M54.5 ; Right foot pain M79.671 ; Hypokalemia E87.6 and Screening, lipid Z13.220 [place] [facility] [id number] [place] [address] 19519- 6418 May, [place] [id number] [place] [address] 55240- 3221 May, [facility] [id number] [place] [address] 88632- 2009 Mar, [facility] [id number] [place] [address] 40489- 9756 Mar, [facility] [id number] [place] [address] 67235- 7546 Mar, Hypokalemia E87.6 [facility] [id number] [place] [address] 28641 2546 Mar, Pain in right leg M79.604 ; Encounter for immunization Z23 ; Pain in right knee M25.561 and Hypokalemia E87.6 [facility] [id number] [place] [address] 67511- 0456 Jan, [facility] [id number] [place] [address] 64584 2546 Jan, [facility] [id number] [place] [address] 57710 2543 Jan, Abdominal pain, generalized 789.07 [facility] [id number] [place] [address] 73878 2546 Jan, Abdominal pain, generalized 789.07 [facility] [id number] [place] [address] 84991- 9156 Dec, [facility] [id number] [place] [address] 03081 2546 Dec, [facility] [id number] [place] [address] 96241- 3556 Dec, [facility] [id number] [place] [address] 57770 2540 Nov, Hallux valgus 735.0 and Hammertoe 735.4 [facility] [id number] [place] [address] 79778- 8601 Nov, [facility] [address], [place] [address]- 0225 Nov, Hallux valgus 735.0 and Hammer toe 735.4 [facility] [address], [place] [address]- 2466 Oct, [facility] [address] 9928 Oct, [facility] [address], [place] [address]- 5255 Oct, Pre-op evaluation V72.84 [facility] [id number] [place] [address] 14817- 6738 Oct, [facility] [id number] 7975 Oct, [facility] [address], [place] [address]- 8045 September, [facility] [address], [place] [address]- 4657 September, [facility] [address], [place] [address]- 6847 September, Hallux valgus (acquired) 735.0 and Other hammer toe ( acquired) 735.4 [facility] [address], [place] [address]- 9322 Aug, [facility] [address], [place] [address]- 8386 Aug, [facility] [address] 0361 Jul, [facility] [address] 6614 Jul, [facility] [address] 4001 Jul, [facility] [place] [facility] [address] [id number] [place] [address]- 0349 Jul, [facility] [place] [facility] [address] [id number] [place] [address]- 5425 Jul, [facility] [place] [facility] [address] [id number] [place] [address]- 7771 Jul, [facility] [place] [facility] [address] [id number] [place] [address]- 4433 Jul, [facility] [place] [facility] [address] [id number] [place] [address]- 3662 Jul, [facility] [place] [facility] [address] [id number] [place] [address]- 5611 Jun, 2014 [facility] [place] [facility] [address] [facility] [id number] [place] [address]- 8680 Jun, 2014 [facility] [place] [facility] [address] [id number] [place] [address]- 1338 Jun, 2014 [facility] [place] [facility] [address] [id number] [place] [address]- 5612 Jun, 2014 [facility] [place] [facility] [address] [facility] [id number] [place] [address]- 1145 Jun, 2014 [facility] [place] [facility] [address] [facility] [id number] [place] [address]- 8245 Jun, 2014 [facility] [place] [facility] [address] [id number] [place] [address]- 0562 Jun, 2014 [facility] [place] [facility] [address] [id number] [place] [address]- 3281 Jun, 2014 [facility] [place] [facility] [address] [id number] [place] [address]- 3455 Jun, 2014 [facility] [place] [facility] [address] [facility] [id number] [place] [address]- 2116 Jun, 2014 [facility] [place] [facility] [address] [id number] [place] [address]- 6713 May, [facility] [address] [id number] [place] [address]- 9173 May, [facility] [place] [facility] [address] [id number] [place] [address]- 5817 May, [facility] [address] [id number] [place] [address]- 0572 May, [facility] [address] [id number] [place] [address]- 1889 May, [facility] [address] [id number] [place] [address]- 8032 May, [facility] [address] [id number] [place] [address]- 6838 May, [facility] [address] [id number] [place] [address]- 1878 May, [facility] [address] [id number] [place] [address]- 3327 May, [facility] [address] [id number] [place] [address]- 2942 May, [facility] [address] [id number] [place] [address]- 7122 May, [facility] [place] [facility] [address] [id number] [place] [address]- 0130 May, [facility] [address] [id number] [place] [address]- 1885 May, [facility] [place] [facility] [address] [id number] [place] [address]- 8297 May, [facility] [place] [facility] [address] [id number] [place] [address]- 6124 May, [facility] [place] [facility] [address] [id number] [place] [address]- 6484 May, [facility] [place] [facility] [address] [id number] [place] [address]- 2588 May, [facility] [place] [facility] [address] [id number] [place] [address]- 4987 May, [facility] [place] [facility] [address] [id number] [place] [address]- 0198 Apr, [facility] [place] [facility] [address] [id number] [place] [address]- 6763 Apr, [facility] [place] [facility] [address] [id number] [place] [address]- 8515 Apr, [facility] [place] [facility] [address] [id number] [place] [address]- 5349 Apr, [facility] [place] [facility] [address] [id number] [place] [address]- 7672 Apr, [facility] [place] [facility] [address] [id number] [place] [address]- 0656 Apr, [facility] [place] [facility] [address] [id number] [place] [address]- 1325 Apr, [facility] [place] [facility] [address] [id number] [place] [address]- 2619 Apr, [facility] [place] [facility] [address] [id number] [place] [address]- 8391 Apr, [facility] [place] [facility] [address] [id number], [place] [address]- 1807 Mar, [facility] [place] [facility] [address] [id number] [place] [address]- 0736 Mar, [facility] [place] [facility] [address] [id number] [place] [address]- 2612 Mar, [facility] [place] [facility] [address] [id number] [place] [address]- 1770 Mar, [facility] [place] [facility] [address] [id number], [place] [address]- 1405 Mar, 2013 [facility] [place] [facility] [address] [id number] [place] [address]- 7565 Feb, 2013 [facility] [place] [facility] [address] [id number], [place] [address]- 5051 Feb, 2013 [facility] [place] [facility] [address] [id number] [place] [address]- 5423 Feb, 2013 [facility] [place] [facility] [address] [id number] [place] [address]- 2411 Feb, 2013 [facility] [place] [facility] [address] [id number] [place] [address]- 6857 Feb, 2013 [facility] [place] [facility] [address] [id number] [place] [address]- 5615 Feb, 2013 [facility] [place] [facility] [address] [facility] [id number], [place] [address]- 3477 Feb, 2013 [facility] [place] [facility] [address] [id number], [place] [address]- 4012 Feb, 2013 [facility] [place] [facility] [address] [facility] [id number], [place] [address]- 9753 Feb, 2013 [facility] [place] [facility] [address] [facility] [id number], [place] [address]- 5716 Feb, 2013 [facility] [place] [facility] [address] [id number], [place] [address]- 4219 Feb, 2013 [facility] [place] [facility] [address] [id number], [place] [address]- 0434 Feb, 2013 [facility] [place] [facility] [address] [id number], [place] [address]- 0860 Feb, 2013 [facility] [place] [facility] [address] [facility] [id number], [place] [address]- 0567 Feb, 2013 [facility] [place] [facility] [address] [facility] [id number], [place] [address]- 9961 Feb, 2013 [facility] [place] [facility] [address] [id number] [place] [address]- 9317 07 Feb, 2014 [facility] [place] [facility] [address] [id number] [place] [address]- 8456 23 Jan, 2013 [facility] [place] [facility] [address] [id number] [place] [address] 2546 23 Jan, 2013 [facility] [place] [facility] [address] [id number] [place] [address] 2546 20 Jan, 2013 [facility] [place] [facility] [address] [id number] [place] [address]- 2546 19 Jan, 2013 [facility] [place] [facility] [address] [id number] [place] [address]- 3376 Jan, [facility] [place] [facility] [address] [id number] [place] [address]- 4809 Jan, [facility] [place] [facility] [address] [id number] [place] [address]- 0990 Jan, [facility] [place] [facility] [address] [id number] [place] [address]- 5435 Jan, [facility] [place] [facility] [address] [id number] [place] [address]- 4384 Dec, [facility] [place] [facility] [address] [id number] [place] [address]- 4911 Dec, [facility] [place] [facility] [address] [id number] [place] [address]- 9227 Nov, [facility] [place] [facility] [address] [id number] [place] [address]- 5669 Nov, [facility] [place] [facility] [address] [id number] [place] [address]- 9661 Nov, [facility] [place] [facility] [address] [id number] [place] 8183 Nov, [facility] [place] [facility] [address] [id number] [place] [address]- 1720 Nov, [facility] [place] [facility] [address] [id number] [place] [address]- 6996 Nov, [facility] [place] [facility] [address] [id number] [place] [address]- 5147 Nov, [facility] [place] [facility] [address] [id number] [place] [address]- 8905 Nov, [facility] [place] [facility] [address] [id number] [place] [address]- 5706 Nov, [facility] [place] [facility] [address] [id number] [place] [address]- 1316 Oct, [facility] [place] [facility] [address] [id number] [place] [address]- 0634 Oct, [facility] [place] [facility] [address] [id number] [place] [address]- 4482 Oct, [facility] [place] [facility] [address] [id number] [place] [address]- 6444 Oct, [facility] [place] [facility] [address] [id number] [place] [address]- 2753 Oct, [facility] [place] [facility] [address] [id number] [place] [address]- 9761 Oct, [facility] [place] [facility] [address] [id number] [place] [address]- 1246 September, [facility] [place] [facility] [address] [id number] [place] [address]- 4290 September, [facility] [place] [facility] [address] [id number] [place] [address]- 0505 September, [facility] [place] [facility] [address] [id number] [place] [address]- 6189 September, [facility] [place] [facility] [address] [id number] [place] [address]- 7720 September, [facility] [place] [facility] [address] [id number] [place] [address]- 6680 September, [facility] [address] [id number] [place] [address]- 1930 September, [facility] [place] [facility] [address] [id number] [place] [address]- 1020 September, [facility] [address] [id number] [place] [address]- 2839 September, [facility] [place] [facility] [address] [id number] [place] [address]- 2757 September, [facility] [place] [facility] [address] [id number] [place] [address]- 4290 September, [facility] [place] [facility] [address] [id number] [place] [address]- 6566 September, [facility] [address] [id number] [place] [address]- 3015 September, [facility] [place] [facility] [address] [id number] [place] [address]- 5980 September, [facility] [place] [facility] [address] [id number] [place] [address]- 8902 September, [facility] [place] [facility] [address] [id number] [place] [address]- 5605 September, [facility] [place] [facility] [address] [id number] [place] [address]- 3041 September, [facility] [place] [facility] [address] [id number] [place] [address]- 3380 September, [facility] [place] [facility] [address] [id number] [place] [address]- 3977 September, [facility] [place] [facility] [address] [id number] [place] [address]- 3094 September, [facility] [place] [facility] [address] [id number] [place] [address]- 1648 Aug, [facility] [place] [facility] [address] [id number] [place] [address]- 0708 Aug, [facility] [place] [facility] [address] [id number] [place] [address]- 4468 Aug, [facility] [place] [facility] [address] [id number] [place] [address]- 7588 Aug, [facility] [place] [facility] [address] [id number] [place] [address]- 3944 Aug, [facility] [place] [facility] [address] [id number] [place] [address]- 9300 Aug, [facility] [place] [facility] [address] [id number] [place] [address]- 4337 Aug, [facility] [place] [facility] [address] [id number] [place] [address]- 9604 Aug, [facility] [place] [facility] [address] [id number] [place] [address]- 6124 Aug, [facility] [place] [facility] [address] [id number] [place] [address]- 5985 Aug, [facility] [place] [facility] [address] [id number] [place] [address]- 3769 14 Aug, 2013 [facility] [place] [facility] [address] [id number] [place] [address]- 0674 Aug, [facility] [place] [facility] [address] [id number] [place] [address]- 8302 Aug, [facility] [place] [facility] [address] [id number] [place] [address] Aug, [facility] [place] [facility] [address] [id number] [place] [address] Aug, [facility] [place] [facility] [address] [id number] [place] [address] Jul, [facility] [place] [facility] [address] [id number] [place] [address] 31 Jul, 2013 [facility] [place] [facility] [address] [id number] [place] [address] Jul, [facility] [place] [facility] [address] [id number] [place] [address] Jul, [facility] [place] [facility] [address] [id number] [place] [address] Jul, [facility] [place] [facility] [address] [id number] [place] [address] Jul, [facility] [place] [facility] [address] [id number] [place] [address] Jul, [facility] [place] [facility] [address] [id number] [place] [address] Jul, [facility] [place] [facility] [address] [id number] [place] [address] Jul, [facility] [place] [facility] [address] [id number] [place] [address] Jul, [facility] [place] [facility] [address] [id number] [place] [address] Jul, [facility] [place] [facility] [address] [id number] [place] [address] Jul, [facility] [place] [facility] [address] [id number] [place] [address] Jul, [facility] [place] [facility] [address] [id number] [place] [address] Jul, [facility] [place] [facility] [address] [id number] [place] [address] Jul, [facility] [place] [facility] [address] [id number] [place] [address] Jun, [facility] [place] [facility] [address] [id number] [place] [address] Jun, [facility] [place] [facility] [address] [id number] [place] [address] Jun, [facility] [place] [facility] [address] [id number] [place] [address] Jun, [facility] [place] [facility] [address] [id number] [place] [address] 1386 Jun, [facility] [place] [facility] [address] [id number] [place] [address]36 Jun, [facility] [place] [facility] [address] [id number] [place] [address] May, [facility] [place] [facility] [address] [id number] [place] [address] May, [facility] [place] [facility] [address] [id number] [place] [address] May, [facility] [place] [facility] [address] [id number] [place] [address] May, [facility] [place] [facility] [address] [id number] [place] [address]- [address] May, [facility] [place] [facility] [address] [id number] [place] [address] 95[address] May, [facility] [place] [facility] [address] [id number] [place] [address] May, [facility] [place] [facility] [address] [id number] [place] [address] May, [facility] [place] [facility] [address] [id number] [place] [address] 74[address] May, [facility] [place] [facility] [address] [id number] [place] [address] May, [facility] [place] [facility] [address] [id number] [place] [address] May, [facility] [place] [facility] [address] [id number] [place] [address] May, [facility] [place] [facility] [address] [id number] [place] [address] May, [facility] [place] [facility] [address] [id number] [place] [address]- [address] May, [facility] [place] [facility] [address] [id number] [place] [address] May, [facility] [place] [facility] [address] [id number] [place] [address]- [address] Apr, [facility] [place] [facility] [address] [id number] [place] [address]40 Apr, [facility] [place] [facility] [address] [id number] [place] [address] Apr, [facility] [place] [facility] [address] [id number] [place] [address]- [address] Apr, [facility] [place] [facility] [address] [id number] [place] [address]- [address] Apr, [facility] [place] [facility] [address] [id number] [place] [address] Apr, [facility] [place] [facility] [address] [id number] [place] [address]- [address]26 Apr, [facility] [place] [facility] [address] [id number] [place] [address]- 90[address] Apr, [facility] [place] [facility] [address] [id number], [place] [address] Apr, [facility] [place] [facility] [address] [id number] [place] [address] Apr, [facility] [place] [facility] [address] [id number] [place] [address]- [address] Mar, [facility] [place] [facility] [address] [id number] [place] [address]- 65[address] Mar, [facility] [place] [facility] [address] [id number] [place] [address]- 42[address] Mar, [facility] [address] [id number] [place] [address]- [address]42 Mar, [facility] [address] [id number] [place] [address]- 3967 Mar, [facility] [address] [id number] [place] [address] Mar, [facility] [address] [id number] [place] [address]- [address]275 Mar, [facility] [address] [id number] [place] [address]- [address] Mar, [facility] [address] [id number] [place] [address]- 16[address] Mar, [facility] [address] [id number] [place] [address] Mar, [facility] [address] [id number] [place] [address]- [address]60 Mar, [facility] [address] [id number] [place] [address]- [address] Mar, [facility] [address] [id number] [place] [address]- 7660 Mar, [facility] [address] [id number] [place] [address]- [address] Mar, [facility] [address] [id number], [place] [address] 18 Mar, 2013 [facility] [place] [facility] [address] [id number] [place] [address] 3969 18 Mar, 2013 [facility] [place] [facility] [address] [id number] [place] [address]- 2189 14 Mar, 2013 [facility] [address] [id number] [place] [address]- 0428 14 Mar, 2013 [facility] [place] [facility] [address] [id number] [place] [address]- 0810 12 Mar, 2013 [facility] [place] [facility] [address] [id number] [place] [address]- 0980 Mar, [facility] [place] [facility] [address] [id number] [place] [address] Mar, [facility] [place] [facility] [address] [id number] [place] [address]- 1343 Mar, [facility] [place] [facility] [address] [id number] [place] [address]- 7497 Mar, [facility] [place] [facility] [address] [id number] [place] [address]- 0448 Feb, [facility] [place] [facility] [address] [id number] [place] [address]- 4447 Feb, [facility] [place] [facility] [address] [id number], [place] [address] 7[address] Feb, [facility] [place] [facility] [address] [id number] [place] [address]- 2966 Feb, [facility] [place] [facility] [address] [id number], [place] [address] 7488 15 Feb, 2013 [facility] [place] [facility] [address] [id number], [place] [address] 8560 Feb, [facility] [place] [facility] [address] [id number], [place] [address] 0737 09 Feb, 2013 [facility] [place] [facility] [address] [id number], [place] [address] 7501 Feb, [facility] [place] [facility] [address] [id number], [place] [address] 3274 04 Feb, 2013 [facility] [place] [facility] [address] [id number] 6735 Feb, [facility] [place] [facility] [address] [id number], [place] [address]- 9085 30 Jan, 2013 [facility] [place] [facility] [address] [id number] [place] [address]- 3736 26 Jan, 2013 [facility] [place] [facility] [address] [id number] [place] [address]- 8571 24 Jan, 2013 [facility] [place] [facility] [address] [id number] [place] [address]- 0956 23 Jan, 2013 [facility] [place] [facility] [address] [id number] [place] [address]- 9323 17 Jan, 2013 [facility] [place] [facility] [address] [id number] [place] [address]- 7374 Dec, [facility] [place] [facility] [address] [id number] [place] [address]- 0137 Dec, [facility] [place] [facility] [address] [id number] [place] [address]- 7438 Dec, [facility] [place] [facility] [address] [id number] [place] [address]- 7403 Dec, [facility] [place] [facility] [address] [id number] [place] [address]- 6295 Dec, [facility] [place] [facility] [address] [id number] [place] [address]- 0571 Dec, [facility] [place] [facility] [address] [id number] [place] [address]- 7497 Dec, [facility] [place] [facility] [address] [id number] [place] [address]- 3422 Nov, [facility] [place] [facility] [address] [id number] [place] [address]- 7362 Nov, [facility] [place] [facility] [address] [id number] [place] [address]- 6530 Nov, [facility] [place] [facility] [address] [id number] [place] [address]- 4524 Nov, [facility] [place] [facility] [address] [id number] [place] [address]- 2546 Nov, [facility] [address] [id number] [place] [address]- 4349 Oct, [facility] [address] [id number] [place] [address]- 2546 Oct, [facility] [address] [id number] [place] [address]- 6336 Oct, [facility] [address] [id number] [place] [address]- 5153 September, [facility] [address] [id number] [place] [address]- 6995 September, [facility] [address] [id number] [place] [address]- 4986 September, [facility] [address] [id number] [place] [address]- 5578 September, [facility] [address] [id number] [place] [address]- 0600 September, [facility] [address] [id number] [place] [address]- 2496 September, [facility] [address] [id number] [place] [address]- 8053 September, [facility] [address] [id number] [place] [address]- 4651 30 Aug, 2012 [facility] [address] [id number] [place] [address]- 5089 Aug, [facility] [place] [facility] [address] [id number] [place] [address]- 8871 Aug, [facility] [place] [facility] [address] [id number] [place] [address]- 2546 Jul, [facility] [place] [facility] [address] [id number] [place] [address]- 6920 Jul, [facility] [place] [facility] [address] [id number] [place] [address]- 2020 26 Jul, 2012 [facility] [place] [facility] [address] [id number] [place] [address]- 4912 20 Jul, 2012 [facility] [place] [facility] [address] [facility] [id number] [place] [address]- 8798 18 Jul, 2012 [facility] [place] [facility] [address] [id number] [place] [address]- 6215 18 Jul, 2012 [facility] [place] [facility] [address] [id number] [place] [address]- 3459 Jul, [facility] [place] [facility] [address] [id number] [place] [address]- 2553 28 Jun, 2012 [facility] [place] [facility] [address] [facility] [id number] [place] [address]- 6652 Jun, [facility] [place] [facility] [address] [facility] [id number] [place] [address]- 7275 Jun, [facility] [place] [facility] [address] [facility] [id number] [place] [address]- 3232 Jun, [facility] [place] [facility] [address] [facility] [id number] [place] [address]- 8743 Jun, [facility] [place] [facility] [address] [facility] [id number] [place] [address]- 1850 Jun, [facility] [place] [facility] [address] [facility] [id number] [place] [address]- 2085 Jun, [facility] [place] [facility] [address] [facility] [id number] [place] [address]- 4418 Jun, [facility] [place] [facility] [address] [facility] [id number] [place] [address]- 4191 Jun, [facility] [place] [facility] [address] [facility] [id number] [place] [address]- 8713 Jun, [facility] [place] [facility] [address] [id number] [place] [address]- 3272 30 May, 2012 [facility] [place] [facility] [address] [id number] [place] [address]- 5716 22 May, 2012 [facility] [place] [facility] [address] [id number] [place] [address] 2546 17 May, 2012 [facility] [place] [facility] [address] [id number] [place] [address]- 0416 17 May, 2012 [facility] [place] [facility] [address] [id number] [place] [address]- 5475 15 May, 2012 [facility] [place] [facility] [address] [id number] [place] [address]- 7207 07 May, 2012 [facility] [place] [facility] [address] [id number] [place] 7107 31 Apr, 2012 [facility] [place] [facility] [address] [id number] [place] [address]- 1485 31 Apr, 2012 [facility] [place] [facility] [address] [id number] [place] [address]- 3929 Apr, [facility] [place] [facility] [address] [id number] [place] [address]- 9996 28 Apr, 2012 [facility] [place] [facility] [address] [id number] [place] [address]- 2856 Apr, [facility] [place] [facility] [address] [id number] [place] [address] 2546 Apr, [facility] [place] [facility] [address] [id number] [place] [address] 2544 Apr, [facility] [place] [facility] [address] [id number] [place] [address] 2546 29 Mar, 2012 [facility] [place] [facility] [address] [id number] [place] [address] 2546 29 Mar, 2012 [facility] [place] [facility] [address] [id number] [place] [address]- 6574 Mar, [facility] [place] [facility] [address] [id number] [place] [address]- 7128 Mar, [facility] [place] [facility] [address] [id number] [place] [address]- 7804 Mar, [facility] [place] [facility] [address] [facility] [id number] [place] [address]- 5840 Mar, [facility] [place] [facility] [address] [id number] [place] [address]- 9256 Mar, [facility] [place] [facility] [address] [id number] [place] [address]- 4039 Mar, [facility] [place] [facility] [address] [id number] [place] [address]- 0499 Mar, [facility] [place] [facility] [address] [id number] [place] [address]- 3436 Mar, [facility] [place] [facility] [address] [id number] [place] [address]- 0822 Mar, [facility] [place] [facility] [address] [id number] [place] [address]- 4821 Mar, [facility] [place] [facility] [address] [id number] [place] [address]- 4641 Mar, [facility] [place] [facility] [address] [id number], [place] [address]- 0645 Mar, [facility] [place] [facility] [address] [id number], [place] [address]- 2158 Mar, [facility] [place] [facility] [address] [id number] [place] [address]- 0953 Mar, [facility] [place] [facility] [address] [id number], [place] [address]- 7668 Mar, [facility] [place] [facility] [address] [facility] [id number], [place] [address]- 7726 Feb, [facility] [place] [facility] [address] [id number] [place] [address]- 0644 25 Feb, 2012 [facility] [place] [facility] [address] [id number] [place] [address]- 2564 17 Feb, 2011 [facility] [place] [facility] [address] [id number] [place] 7796 17 Feb, 2012 [facility] [place] [facility] [address] [id number] [place] [address]- 4614 16 Feb, 2011 [facility] [place] [facility] [address] [id number] [place] [address]- 5855 16 Feb, 2012 [facility] [place] [facility] [address] [id number] [place] 4202 Feb, [facility] [place] [facility] [address] [id number] [place] [address]- 6171 Feb, [facility] [place] [facility] [address] [id number] [place] [address]- 5974 05 Feb, 2012 [facility] [place] [facility] [address] [id number] [place] [address]- 2448 04 Feb, 2012 [facility] [place] [facility] [address] [id number] [place] [address]- 3413 02 Feb, 2012 [facility] [place] [facility] [address] [facility] [id number] [place] [address]- 5851 27 Jan, 2011 [facility] [place] [facility] [address] [id number] [place] [address]- 2526 25 Sep, 2011 [facility] [place] [facility] [address] [id number] [place] [address]- 2548 13 Sep, 2011 [facility] [place] [facility] [address] [id number] [place] [address]- 7967 12 Jan, 2012 [facility] [place] [facility] [address] [id number] [place] [address]- 3646 07 Jan, 2011 [facility] [place] [facility] [address] [id number] [place] [address]304 Dec, [facility] [place] [facility] [address] [id number] [place] [address]- 9489 Dec, [facility] [place] [facility] [address] [id number] [place] [address]- 2472 Dec, [facility] [place] [facility] [address] [id number] [place] [address]- 6627 Dec, [facility] [place] [facility] [address] [id number] [place] [address]- 3731 Dec, [facility] [place] [facility] [address] [id number] [place] [address]- 6047 Dec, [facility] [place] [facility] [address] [id number] [place] [address]- 7453 Dec, [facility] [place] [facility] [address] [id number] [place] [address]- 9193 Dec, [facility] [place] [facility] [address] [id number] [place] [address]- 2666 Nov, [facility] [place] [facility] [address] [id number] [place] [address]- 9505 Nov, [facility] [place] [facility] [address] [id number] [place] [address]- 9411 Nov, [facility] [place] [facility] [address] [id number] [place] [address]- 2681 Nov, [facility] [place] [facility] [address] [id number] [place] [address]- 1398 Nov, [facility] [place] [facility] [address] [id number] [place] [address]- 0958 Oct, [facility] [place] [facility] [address] [id number] [place] [address]- 9591 Oct, [facility] [place] [facility] [address] [id number] [place] [address]- 7871 September, [facility] [place] [facility] [address] [id number] [place] [address]- 2546 September, [facility] [address] [id number] [place] [address]- 2140 September, [facility] [place] [facility] [address] [id number] [place] [address]- 5756 September, [facility] [place] [facility] [address] [id number] [place] [address]- 9150 September, [facility] [place] [facility] [address] [id number] [place] [address]- 1624 September, [facility] [place] [facility] [address] [id number] [place] [address]- 0969 September, [facility] [place] [facility] [address] [id number] [place] [address]- 4324 September, [facility] [place] [facility] [address] [id number] [place] [address]- 4341 September, [facility] [place] [facility] [address] [id number] [place] [address]- 7053 September, [facility] [place] [facility] [address] [id number] [place] [address]- 2193 September, [facility] [place] [facility] [address] [id number] [place] [address]- 2740 September, [facility] [place] [facility] [address] [id number] [place] [address]- 5101 September, [facility] [place] [facility] [address] [id number] [place] [address]- 7610 September, [facility] [place] [facility] [address] [id number] [place] [address]- 2648 Aug, [facility] [place] [facility] [address] [id number] [place] [address]- 7557 Aug, [facility] [place] [facility] [address] [id number] [place] [address]- 8459 Aug, [facility] [place] [facility] [address] [id number] [place] [address]- 1746 11 Aug, 2011 [facility] [address] [id number] [place] [address]- 7946 23 Jul, 2011 [facility] [address] [facility] [id number] [place] [address]- 2546 13 Jul, 2011 [facility] [address] [facility] [id number] [place] [address]- 4546 13 Jul, 2011 [facility] [address] [facility] [id number] [place] [address]- 7916 28 Jun, 2011 [facility] [address] [facility] [id number] [place] [id number] Jun, 2011 [facility] [address] [id number] [place] [address]- 2806 13 Jun, 2011 [facility] [address] [id number] [place] [address]- 6016 10 Jun, 2011 [facility] [address] [id number] [place] [address]- 6261 07 Jun, 2011 [facility] [address] [id number] [place] [address]- 5976 07 Jun, 2011 [facility] [address] [id number] [place] [address]- 9856 03 Jun, 2011 [facility] [address] [id number] [place] [address]- 3126 Jun, [facility] [address] [facility] [id number] [place] [address]- 1929 May, [facility] [place] [facility] [address] [facility] [id number] [place] [address]- 6356 May, [facility] [place] [facility] [address] [facility] [id number] [place] [address]- 6886 May, [facility] [place] [facility] [address] [id number] [place] [address]- 1796 May, [facility] [address] [id number] [place] [address]- 1830 May, [facility] [place] [facility] [address] [id number] [place] [address]- 3799 May, [facility] [place] [facility] [address] [id number] [place] [address]- 4323 May, [facility] [place] [facility] [address] [id number] [place] [address]- 3904 May, [facility] [place] [facility] [address] [id number] [place] [address]- 6121 May, [facility] [place] [facility] [address] [id number] [place] [address]- 5549 May, [facility] [place] [facility] [address] [id number] [place] [address]- 3548 May, [facility] [place] [facility] [address] [id number] [place] [address]- 5257 May, [facility] [place] [facility] [address] [id number] [place] [address]- 1512 May, [facility] [place] [facility] [address] [id number] [place] [address]- 0997 May, [facility] [place] [facility] [address] [id number] [place] [address]- 2233 Apr, [facility] [place] [facility] [address] [id number], [place] [address]- 9254 Apr, [facility] [place] [facility] [address] [id number] [place] [address]- 1117 Apr, [facility] [place] [facility] [address] [id number], [place] [address]- 1816 Mar, [facility] [place] [facility] [address] [id number] [place] [address] Mar, [facility] [place] [facility] [address] [id number] [place] [address] 31 Feb, 2011 [facility] [place] [facility] [address] [id number] [place] [address] 26 Feb, 2011 [facility] [place] [facility] [address] [id number] [place] [address] 21 Feb, 2011 [facility] [place] [facility] [address] [id number] [place] [address] 20 Feb, 2011 [facility] [place] [facility] [address] [id number] [place] [address] 13 Feb, 2011 [facility] [place] [facility] [address] [id number] [place] [address] 28 Apr, 2010 [facility] [place] [facility] [address] [id number] [place] [address] 22 Apr, 2010 [facility] [place] [facility] [address] [id number] [place] [address] 16 Apr, 2010 [facility] [place] [facility] [address] [id number] [place] [address] 15 Apr, 2010 [facility] [place] [facility] [address] [id number] [place] [address] 15 Apr, 2010 [facility] [place] [facility] [address] [facility] [id number] [place] [address] Apr, [facility] [place] [facility] [address] [id number] [place] [address] 24 Mar, 2010 [facility] [place] [facility] [address] [id number] [place] [address] 17 Mar, 2010 [facility] [place] [facility] [address] [id number] [place] [address] 17 Mar, 2010 [facility] [place] [facility] [address] [id number] [place] [address] 28 Feb, 2010 [facility] [place] [facility] [address] [id number] [place] [address] 22 Feb, 2010 [facility] [address] [id number] [address] Feb, [facility] [id number] [address] Feb, [facility] [id number] [address] Dec, [facility] [id number] [address] Dec, [facility] [id number] [address] Oct, [facility] [address] [address] Mar, [facility] [address] [address] Mar, [facility] [id number] [address] September, IMMUNIZATIONS No Known Immunizations SOCIAL HISTORY Never Assessed REASON FOR VISIT Controlled Med Refill 02/27/2017 PLAN OF CARE VITAL SIGNS MEDICATIONS Medication Instructions Dosage Frequency Start Date End Date Duration Status Acetaminophen-Codeine #3 300-30 MG Orally every 6 hrs 1 tablet as needed 6h Oct, 28 days Active Chlordiazepoxide HCl 10 MG Orally Three times a day 2 capsules 8h Aug, 28 days Active RESULTS No [...]
--- OUTSIDE RECORDS SUMMARY | 2017-10-05 16:03 | XMS REPORT ---
Author Author VALERIE ZAVALA [facility] Address [address] [place] [address] Care Team Providers Care Air Tube Releaser Name Role Phone VALERIE ZAVALA Unavailable PROBLEMS Type Condition ICD9-CM Code ZAL51-JG Code Onset Dates Condition Status SNOMED Code Problem Insomnia, unspecified type G47.00 Active 611582121 Problem Post-traumatic stress disorder, chronic F43.12 Active 10232278 Problem Pulmonary emphysema, unspecified emphysema type J43.9 Active 28181362 Problem Panic attacks F41.0 Active 610153346 Problem UTI symptoms R39.9 Active 51193301 Problem Other emphysema J43.8 Active 69868965 Problem Pain in right knee M25.561 Active 76086992 Problem Hypokalemia E87.6 Active 549820081 Problem Essential hypertension I10 Active 53072793 Problem Gastroesophageal reflux disease without esophagitis K21.9 Active 760994688 Problem Anxiety F41.9 Active 90989547 Problem Neuropathy G62.9 Active 437672444 Problem Back pain M54.9 Active 261920742 Problem Chronic pain G89.29 Active 68387648 Problem Right low back pain, with sciatica presence unspecified M54.5 Active 631964739 Problem Right foot pain M79.671 Active 46652746 Problem Tobacco abuse Z72.0 Active 05649380 Problem Weight decrease R63.4 Active 426453514 Problem Bone pain M89.8X9 Active 03241989 Problem Right upper quadrant abdominal pain R10.11 Active 766760000 Problem Generalized anxiety disorder F41.1 Active 49283923 Problem Depression, unspecified depression type F32.9 Active 20235161 Problem Weight loss R63.4 Active 960551326 ALLERGIES No Information SOCIAL HISTORY Never Assessed PLAN OF CARE VITAL SIGNS MEDICATIONS Medication Instructions Dosage Frequency Start Date End Date Duration Status Vagifem 10 MCG Vaginal Two times a Week 1 tablet Jul, 30 day( s) Active Cipro 500 mg Orally Twice a day 1 tablet 12h 15 Jul, 2016 Jul, 07 days Active RESULTS No Results PROCEDURES No [...]
--- OUTSIDE RECORDS SUMMARY | 2017-10-05 16:04 | XMS REPORT ---
Author Author VALERIE ZAVALA Organization [facility] Address [address] [place] [address] Care Team Providers Care Poultry Killer Name Role Phone VALERIE ZAVALA Unavailable PROBLEMS Type Condition ICD9-CM Code FYL39-CE Code Onset Dates Condition Status SNOMED Code Problem Weight loss R63.4 Active 942805770 Problem Pulmonary emphysema, unspecified emphysema type J43.9 Active 12211683 Problem Insomnia, unspecified type G47.00 Active 070684365 Problem Other emphysema J43.8 Active 02111550 Problem Pain in right knee M25.561 Active 40691381 Problem Anxiety F41.9 Active 59806493 Problem Hypokalemia E87.6 Active 422125681 Problem Generalized anxiety disorder F41.1 Active 95676616 Problem Gastroesophageal reflux disease without esophagitis K21.9 Active 556182723 Problem Post-traumatic stress disorder, chronic F43.12 Active 43066977 Problem Neuropathy G62.9 Active 768435336 Problem Essential hypertension I10 Active 73282588 Problem Right foot pain M79.671 Active 62256256 Problem Back pain M54.9 Active 617829509 Problem UTI symptoms R39.9 Active 15961678 Problem Right low back pain, with sciatica presence unspecified M54.5 Active 163918451 Problem Depression, unspecified depression type F32.9 Active 51512379 Problem Tobacco abuse Z72.0 Active 74183796 Problem Chronic pain G89.29 Active 20632654 Problem Weight decrease R63.4 Active 060639571 Problem Bone pain M89.8X9 Active 25133563 Problem Right upper quadrant abdominal pain R10.11 Active 281349592 ALLERGIES Unknown Allergies SOCIAL HISTORY No smoking Hx information available PLAN OF CARE VITAL SIGNS MEDICATIONS Unknown Medications RESULTS No Results PROCEDURES No Known procedures IMMUNIZATIONS No Known Immunizations
--- OUTSIDE RECORDS SUMMARY | 2017-10-05 16:05 | XMS REPORT ---
Author Author VALERIE ZAVALA [facility] Address [address] [place] [address] Care Team Providers Care Lead Informatica Developer Name Role Phone VALERIE ZAVALA Unavailable PROBLEMS Type Condition ICD9-CM Code BHO06-GA Code Onset Dates Condition Status SNOMED Code Problem Weight loss R63.4 Active 170336504 Problem Pulmonary emphysema, unspecified emphysema type J43.9 Active 84037536 Problem Insomnia, unspecified type G47.00 Active 207211022 Problem Other emphysema J43.8 Active 87373079 Problem Pain in right knee M25.561 Active 47116877 Problem Anxiety F41.9 Active 79798068 Problem Hypokalemia E87.6 Active 364541587 Problem Generalized anxiety disorder F41.1 Active 76656676 Problem Gastroesophageal reflux disease without esophagitis K21.9 Active 546685975 Problem Post-traumatic stress disorder, chronic F43.12 Active 68294057 Problem Neuropathy G62.9 Active 306307661 Problem Essential hypertension I10 Active 26778441 Problem Right foot pain M79.671 Active 67635623 Problem Back pain M54.9 Active 714479689 Problem UTI symptoms R39.9 Active 97687879 Problem Right low back pain, with sciatica presence unspecified M54.5 Active 214718833 Problem Depression, unspecified depression type F32.9 Active 45617260 Problem Tobacco abuse Z72.0 Active 06182680 Problem Chronic pain G89.29 Active 01628497 Problem Weight decrease R63.4 Active 424736602 Problem Bone pain M89.8X9 Active 47751373 Problem Right upper quadrant abdominal pain R10.11 Active 304787914 ALLERGIES Substance Reaction Event Type Date Status Sulfur rash Drug Allergy May, Active Remeron itching Drug Allergy May, Active Morphine Sulfate nausea Drug Allergy May, Active Fentanyl 25 Mcg/hr Patch 72 Hr Unknown Non Drug Allergy May, Active SOCIAL HISTORY No smoking Hx information available PLAN OF CARE Activity Details Follow Up prn Reason: VITAL SIGNS Height 64 in 2016-06-02 Weight 110.6 lbs 2016-06-02 Temperature 97.6 degrees Fahrenheit 2016-06-02 Heart Rate 100 bpm 2016-06-02 Respiratory Rate 22 2016-06-02 Oximetry 93 % 2016-06-02 BMI 18.98 kg/m2 2016-06-02 Blood pressure systolic 101 mmHg 2016-06-02 Blood pressure diastolic 76 mmHg 2016-06-02 MEDICATIONS Medication Instructions Dosage Frequency Start Date End Date Duration Status Elavil 25 MG Orally Once a day 1-2 tablets at bedtime as needed 24h 10 Mar 30 day(s) Active Linzess 290 MCG Orally Once a day 1 capsule 24h 90 Active Zantac 150 MG Orally Twice a day 1-2 tablets as needed for heartburn 12h Active Loratadine 10 MG Orally Once a day 1 tablet 24h 30 Active Percocet 10-325 MG Orally 4 times a day 1 tablet as needed 6h 30 Apr, 2016 28 days Active Elavil 75 MG Orally Once a day 1 tablet at bedtime 24h Dec, Active Atorvastatin Calcium 40 MG TAKE ONE TABLET BY MOUTH DAILY 30 Active Azithromycin 250 MG Orally Once a day 2 tablets on the first day, then 1 tablet daily for 4 days 24h Active Dicyclomine HCl 20 mg Orally 3 times a day 1 tablet 30 to 60 minutes before meals 8h 90 days Active Trazodone HCl 50 mg Orally Once a day 1-2 tablet at bedtime as needed 24h Apr, Active Chlordiazepoxide HCl 10 mg Orally 1 in AM and 1 in afternoon and 2 at hs 1 capsule Active Potassium Chloride ER 20 MEQ Orally Once a day 1 capsule 24h Mar, 90 days Active Ibuprofen 600 MG Orally Three times a day 1 tablet with food as needed 8h Active PredniSONE 20 MG Orally Once a day 2 tablets 24h Active Effexor XR 75 MG Orally Once a day 1 capsule with food 24h Jul, 30 day(s) Active RESULTS No Results PROCEDURES Procedure Date Ordered Related Diagnosis Body Site MEASURE BLOOD OXYGEN LEVEL Jun 02, 2016 No Charge Jun 02, 2016 IMMUNIZATIONS No Known Immunizations
[2017-10-05] MEDS ORDERED: DICL100G18 TP (16:19)
[2017-10-05] MEDS ORDERED: NAPR250T6 PO (16:19)
--- NOTE | 2017-10-05 16:19 | ED Lower Extremity ---
General Chief Complaint: Trauma-Non Activation Stated Complaint: FALL;R KNEE Source: patient Exam Limitations: no limitations History of Present Illness Date Seen by Provider: October 05, 2017 Time Seen by Provider: 16:13 Initial Comments to ER with reports of a fall after tripping over her dog on Monday10/02/17 She landed on both knees but has an abrasion to the right knee and complains of severe pain. She is already on Tylenol No. 3 for her irritable bowel syndrome. She sees Dr. Levy from [place] for pain management for her chronic back pain. However she states that her Tylenol No. 3 is not helping with pain. Onset: just prior to arrival Severity: moderate Pain/Injury Location: right knee Modifying Factors: Worse With Movement Allergies and Home Medications Allergies Coded Allergies: Sulfa (Sulfonamide Antibiotics) (Verified Allergy, Unknown, 05/29/16) adhesive (Verified Allergy, Unknown, 05/29/16) fentanyl adhesive meperidine (Verified Allergy, Unknown, HALLUCINATIONS, 05/29/16) pregabalin (Verified Allergy, Unknown, 07/10/16) Home Medications Albuterol Sulfate 1 Puff Puff, 1 PUFF IH DAILY, (Reported) 1 PUFF = 90 MCG Chlordiazepoxide HCl 10 Mg Capsule, 20 MG PO TID, (Reported) Dicyclomine HCl 20 Mg Tablet, 20 MG PO TID, (Reported) Metoprolol Succinate 50 Mg Tab.er.24h, 50 MG PO DAILY, (Reported) Pantoprazole Sodium 40 Mg Tablet.dr, 40 MG PO DAILY, (Reported) Patient Home Medication List Home Medication List Reviewed: Yes Constitutional: see HPI EENTM: see HPI Respiratory: no symptoms reported Cardiovascular: no symptoms reported Genitourinary: no symptoms reported Musculoskeletal: see HPI Skin: see HPI Psychiatric/Neurological: No Symptoms Reported Past Iialzoh-Kyotsg-Emuvvg Hx Patient Social History Type Used: Cigarettes 2nd Hand Smoke Exposure: No Recent Foreign Travel: No Contact w/Someone Who Travel: No Recent Hopitalizations: Yes (Emphysema, UTI admit 05/2016) Immunizations Up To Date Tetanus Booster (TDap): Less than 5yrs Date of Pneumonia Vaccine: Feb 27, 2017 Date of Influenza Vaccine: Feb 27, 2017 Seasonal Allergies Seasonal Allergies: Yes Past Medical History Surgeries: Yes (ADHESIOLYSIS X3, LEFT FOOT X2, C/S X2, HYSTERECTOMY) Abdominal, Section, Hysterectomy, Joint Replacement, Orthopedic, Tonsillectomy Respiratory: Yes COPD Currently Using CPAP: No Cardiac: No Hypertension Neurological: No Headaches /Migraines 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 Disorders: No Sexually Transmitted Disease: No HIV/AIDS: No Kidney Stones, UTI-Chronic Gastrointestinal: Yes Gastroesophageal Reflux, Chronic Constipation, Irritable Bowel Musculoskeletal: Yes ("KNEE AND BACK PROBLEMS") Degenerate Disk Disease, Osteoporosis, Arthritis, Fibromyalgia, Chronic Back Pain Endocrine: No Loss of Vision: Bilateral Hearing Impairment: Denies Cancer: No Psychosocial: No (Pt states she had Bulemia years ago and lowest weight was 94 lbs ) Anxiety, PTSD, Depression Integumentary: No Blood Disorders: Yes (HX OF ANEMIA) Adverse Reaction/Blood Tranf: No (HAS FLUSHING BUT NO REACTION) Family Medical History Abdominal aortic aneurysm Alzheimer's disease 19 MOTHER Cardiovascular disease 19 FATHER ( AT 46 FROM HEART ATTACK) G8 SISTER Hypercholesterolemia 19 FATHER Hypertension 19 FATHER 19 MOTHER Myocardial infarction 19 FATHER Thyroid disease 19 MOTHER G8 SISTER Physical Exam Vital Signs Capillary Refill : General Appearance: WD/WN, no apparent distress HEENT: PERRL/EOMI, normal ENT inspection Neck: non-tender, full range of motion Respiratory: no respiratory distress, no accessory muscle use Gastrointestinal: normal bowel sounds, non tender Hips: bilateral hip non-tender, bilateral hip normal inspection, bilateral hip normal range of motion Legs: bilateral leg non-tender, bilateral leg normal inspection, bilateral leg normal range of motion Knees: right knee other (abrasion to the right anterior knee without ecchymosis or swelling. She reports unable to fully extend the knee due to pain but she can flex it.) Ankles: bilateral ankle non-tender, bilateral ankle normal inspection, bilateral ankle normal range of motion Feet: bilateral foot non-tender, bilateral foot normal inspection, bilateral foot normal range of motion 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: alert, normal mood/affect, oriented x 3 Skin: normal color, warm/dry Progress/Results/Core Measures Results/Orders My Orders Orders - CYDNEY ANDERSON APRN Knee, Right, 3 Views (10/05/17 16:12) Departure Impression Primary Impression: Contusion of knee Disposition: HOME, SELF-CARE Condition: Stable Departure-Patient Inst. Decision time for Depature: 16:16 Referrals: MICHELLE CAMARGO MD (PCP) Primary Care Physician VALERIE ZAVALA (Family) Primary Care Physician Patient Instructions: Contusion (DC) Add. Discharge Instructions: continue to use her Tylenol 3 for pain control. At the anti-inflammatories as directed.All discharge instructions reviewed with patient and/or family. Voiced understanding. Scripts Naproxen (Naproxen) 250 Mg Tablet 250 MG PO BID, #30 TAB Prov: CYDNEY ANDERSON APRN 10/05/17 Diclofenac Sodium (Voltaren) 100 Gm Gel..gram. 100 GM TP QID, #1 TUBE Prov: CYDNEY ANDERSON APRN 10/05/17 CYDNEY ANDERSON APRN October 05, 2017 16:19
--- NOTE | 2017-10-05 16:33 | Diagnostic Imaging Report ---
INDICATION: Fall. History of previous arthroplasty. Right knee pain. FINDINGS: Three views of the right knee. Total arthroplasty is present. All components appear in good alignment. There are no findings to indicate hardware loosening. There is no evidence of osteolysis. No cortical bony fracture. IMPRESSION: Satisfactory appearing arthroplasty with no acute changes. Dictated by: Dictated on workstation # [id number]
[2017-10-05 16:47] VITALS: BP 177/77
== END 2017-10-05 16:50 | disposition home or self-care (01) ==
LOC: EDUNIT# 15:39 → ER 15:40
DX: S80.01XA Contusion of right knee, initial encounter (principal); J44.9 Chronic obstructive pulmonary disease, unspecified; I10 Essential (primary) hypertension; F41.9 Anxiety disorder, unspecified; F43.10 Post-traumatic stress disorder, unspecified; F32.9 Major depressive disorder, single episode, unspecified; M81.0 Age-related osteoporosis without current pathological fracture; K21.9 Gastro-esophageal reflux disease without esophagitis; G43.909 Migraine, unspecified, not intractable, without status migrainosus; Z88.2 Allergy status to sulfonamides; Z88.8 Allergy status to other drugs, medicaments and biological substances; Z87.19 Personal history of other diseases of the digestive system; Z79.51 Long term (current) use of inhaled steroids; Z87.440 Personal history of urinary (tract) infections; Z90.710 Acquired absence of both cervix and uterus; Z82.49 Family history of ischemic heart disease and other diseases of the circulatory system; Z90.89 Acquired absence of other organs; Z87.59 Personal history of other complications of pregnancy, childbirth and the puerperium; W18.31XA Fall on same level due to stepping on an object, initial encounter
CPT/HCPCS: 73562

== ENCOUNTER 2017-11-27 15:11 | Emergency (ER) | payer MEDICARE, MEDICAID ==
[~2017-11-27] VITALS: Ht 162.6 cm; Wt 57.2 kg
[~2017-11-27 15:11] MED LIST changes: +DICL100G18 TP; +NAPR250T6 PO; +TRAZ-189 PO; -TRAZ-28 PO
--- OUTSIDE RECORDS SUMMARY | 2017-11-27 15:18 | XMS REPORT ---
Author Author VALERIE ZAVALA [facility] Address [address] [place] [address] Care Team Providers Care Optical Glass Sawyer Name Role Phone VALERIE ZAVALA Unavailable PROBLEMS Type Condition ICD9-CM Code PWH39-EC Code Onset Dates Condition Status SNOMED Code Problem Generalized anxiety disorder F41.1 Active 94125511 Problem Hypokalemia E87.6 Active 395817612 Problem Right low back pain, with sciatica presence unspecified M54.5 Active 815533139 Problem Post-traumatic stress disorder, chronic F43.12 Active 57133478 Problem Pain in right knee M25.561 Active 47679667 Problem Gastroesophageal reflux disease without esophagitis K21.9 Active 570656831 Problem UTI symptoms R39.9 Active 56221999 Problem Essential hypertension I10 Active 07878404 Problem Anxiety F41.9 Active 11024433 Problem Neuropathy G62.9 Active 997183710 Problem Other chronic pain G89.29 Active 62054066 Problem Generalized abdominal pain R10.84 Active 735816119 Problem Chronic pain G89.29 Active 83446188 Problem Back pain M54.9 Active 530979071 Problem Right foot pain M79.671 Active 46772959 Problem Panic attacks F41.0 Active 462641546 Problem Other emphysema J43.8 Active 30108935 Problem Kidney stones N20.0 Active 81720268 Problem Renal calculus, right N20.0 Active 05837742 Problem Weight decrease R63.4 Active 175853224 Problem Tobacco abuse Z72.0 Active 35408056 Problem Bone pain M89.8X9 Active 41281744 Problem Depression, unspecified depression type F32.9 Active 64860031 Problem Insomnia, unspecified type G47.00 Active 674746700 Problem Pulmonary emphysema, unspecified emphysema type J43.9 Active 92980675 Problem Right upper quadrant abdominal pain R10.11 Active 646831274 Problem Weight loss R63.4 Active [id number] ALLERGIES No Information ENCOUNTERS Encounter Location Date Diagnosis [facility] [id number] [place] [address] 24377- 9456 September, RLQ abdominal pain R10.31 ; Low back pain M54.5 and Other chronic pain G89.29 [facility] [id number] [place] [address] 90083 2546 Aug, Medicare welcome exam Z00.00 [facility] [id number] [place] [address] 85956 2546 27 Aug, 2017 [facility] [id number] [place] [address] 74860 2546 Aug, Acute pyelonephritis N10 and Medicare welcome exam Z00.00 [facility] [id number] [place] [address] 89734 -6707 Aug, Dysuria R30.0 and Acute pyelonephritis N10 [facility] [id number] [place] [address] 22626 2546 Aug, [facility] [id number] [place] [address] 83813 2547 Aug, [facility] [id number] [place] [address] 23864 2546 Aug, [facility] [address] [place] [address] 55265- 2956 Aug, [facility] [id number] [place] [address] 10238 2546 Jul, [facility] [id number] [place] [address] 29308- 5347 Jul, Renal calculus, right N20.0 and Medicare welcome exam Z00.00 [facility] [address] [address] 2547 Jul, Dysuria R30.0 and Renal calculus, right N20.0 [facility] [address] [place] [address] 74498- 1574 Jul, Medicare welcome exam Z00.00 [facility] [id number] [place] [address] 85846- 8506 13 Jun, 2017 Gastroesophageal reflux disease without esophagitis K21.9 and Generalized abdominal pain R10.84 [facility] [id number] [place] [address] 42870- 4832 09 Jun, 2017 Medicare welcome exam Z00.00 [facility] [id number] [place] [address] 63441- 4084 Jun, [facility] [id number] [place] [address] 60185- 1392 Jun, Medicare welcome exam Z00.00 and Encounter for screening mammogram for malignant neoplasm of breast Z12.31 [facility] [id number] [place] [address] 43086- 1625 Jun, Chronic pain G89.29 [facility] [id number] [place] [address] 15486- 5020 May, [facility] [id number] [place] [address] 25881- 3639 May, Pelvic pain R10.2 [facility] [id number] [place] [address] 00584- 1371 May, Pelvic pain R10.2 [facility] [id number] [place] [address] 03676 -8842 May, Renal calculus, right N20.0 [facility] [id number] [place] [address] 64385- 3108 May, Hematuria, unspecified type R31.9 and Nephrolithiasis N20.0 [facility] [id number] [place] [address] 25973 -9523 May, Dysuria R30.0 and Nephrolithiasis N20.0 [facility] [address] [address]- 3287 May, [facility] [address] [place] [address] 31127 -6757 May, Abdominal pain R10.9 and Kidney stone N20.0 [facility] [address] [place] [address] 68116- 6033 May, [facility] [id number] [place] [address] 10656- 3197 May, Chronic pain G89.29 and Panic attacks F41.0 [facility] [id number] [place] [address] 75831- 7946 May, Urinary tract infection without hematuria, site unspecified N39.0 [facility] [address] [place] [address] 93975- 0354 Apr, Right lower quadrant abdominal pain R10.31 and Abnormal serum lipase level R74.8 [facility] [address] [place] [address] 12410- 4645 Apr, Recurrent urinary tract infection N39.0 [facility] [address] [place] [address] 43222- 6412 Apr, UTI symptoms R39.9 ; Recurrent urinary tract infection N39.0 and Pelvic pain R10.2 [facility] [address] [place] [address] 26847- 9915 Apr, Chronic pain G89.29 and Panic attacks F41.0 [facility] [address] [place] [address] 51009- 3834 Apr, Dysuria R30.0 [facility] [address] [place] [address] 91566- 7717 Apr, [facility] [address] [address]- 6276 Apr, Dysuria R30.0 and Urinary tract infection without hematuria , site unspecified N39.0 [facility] [address] [address]- 4527 Mar, UTI symptoms R39.9 [facility] [id number] [place] [address] 21404- 3304 Mar, [facility] [id number] [place] [address] 44051- 5158 Mar, Panic attacks F41.0 and Chronic pain G89.29 [facility] [id number] [place] [address] 38993- 4686 Mar, [facility] [id number] [place] [address] 86804- 4952 Mar, Dysuria R30.0 [facility] [id number] [place] [address] 83821- 9557 Mar, Dysuria R30.0 [facility] [id number] [place] [address] 70356- 7680 Feb, Chronic pain G89.29 ; Shortness of breath R06.02 ; Weight loss R63.4 ; Encounter for immunization Z23 ; Bone pain M89.8X9 ; Right anterior knee pain M25.561 and Cough R05 [facility] [address] [place] [address] 99717- 0894 Feb, Shortness of breath R06.02 [facility] [id number] [place] [address] 30080- 7745 Feb, [facility] [id number] [place] [address] 32540- 0985 Feb, Panic attacks F41.0 and Chronic pain G89.29 [facility] [id number] [place] [address] 99916- 9096 Feb, [facility] [id number] [place] [address] 70419- 4236 Feb, Panic attacks F41.0 ; Shortness of breath R06.02 and Encounter for immunization Z23 [facility] [id number] [place] [address] 19846- 3341 Jan, [facility] [address] 33130- 7694 Jan, Anxiety F41.9 and Chronic pain G89.29 [facility] [address] 13788- 5296 Dec, Anxiety F41.9 and Chronic pain G89.29 [facility] [address] 64930- 8574 Nov, Chronic pain G89.29 [facility] [address] 39429- 2882 Nov, Anxiety F41.9 [facility] [address] 98428- 7033 Nov, Chronic pain G89.29 ; Essential hypertension I10 and Other emphysema J43.8 [facility] [address] 42922- 8882 Oct, Anxiety F41.9 [facility] [id number] [place] [address] 48752- 1106 Oct, [facility] [id number] [place] [address] 22680- 8999 Oct, Chronic pain G89.29 [facility] [id number] [place] [address] 94940- 9788 September, Recurrent UTI N39.0 ; Neuropathy G62.9 and Anxiety F41.9 [facility] [address] 33025- 6611 September, [facility] [id number] [place] [address] 11193- 8525 September, Chronic pain G89.29 [facility] [address] [address]- 0623 September, [facility] [address] [place] [address] 40314- 4719 Aug, Post-traumatic stress disorder, chronic F43.12 ; Chronic urinary tract infection N39.0 ; Gastroesophageal reflux disease without esophagitis K21.9 ; Chronic pain G89.29 ; Essential hypertension I10 and Tobacco abuse Z72.0 [facility] [address] [address] -5912 Aug, [facility] [id number] [place] [address] 40815- 3111 Aug, Chronic pain G89.29 [facility] [id number] [place] [address] 18109- 8931 Aug, Insomnia, unspecified type G47.00 [facility] [id number] [place] [address] 01283- 9141 Aug, [facility] [address] [place] [address] 29625- 5443 Jul, Chronic pain G89.29 [facility] [address] [place] [address] 73058- 7065 Jul, [facility] [address] [address]- 7996 Jul, [facility] [address], [place] [address]- 4157 Jul, [facility] [address] [address]- 0088 15 Jul, 2016 Recurrent UTI (urinary tract infection) N39.0 [facility] [address] [place] [address] 65818- 9538 14 Jul, 2016 [facility] [address], [place] [address]- 6100 Jun, Chronic pain G89.29 [facility] [address], [place] [address]- 9996 17 Jun, 2016 [facility] [id number] [place] [address] 61203- 5671 Jun, [facility] [id number] [place] [address] 22933- 8363 May, Chronic pain G89.29 [facility] [id number] [place] [address] 44813- 7214 May, Weight loss R63.4 and Shortness of breath R06.02 [facility] [id number] [place] [address] 77518- 3149 May, Chronic pain G89.29 ; Weight loss R63.4 and Tobacco abuse Z72.0 [facility] [id number] [place] [address] 72608- 2982 May, [facility] [id number] [place] [address] 78514- 6057 May, Hypoxia R09.02 [facility] [id number] [place] [address] 66597- 0780 May, [facility] [id number] [place] [address] 26856- 3660 May, Pulmonary emphysema, unspecified emphysema type J43.9 [facility] [address] [place] [address] 70101 -9070 May, [facility] [address] [place] [address] 18678- 5464 May, [facility] [id number] [place] [address] 31494- 9457 May, [facility] [address] [place] [address] 86961- 7707 May, Chronic pain G89.29 ; Encounter for immunization Z23 ; Right anterior knee pain M25.561 and Cough R05 [facility] [address] [address]- 6780 Apr, Chronic pain G89.29 [facility] [id number] [place] [address], [place] [address]- 3656 Apr, [facility] [id number] [place] [address] 92783- 5806 Apr, Generalized anxiety disorder F41.1 and Depression, unspecified depression type F32.9 [facility] [id number] [place] [address] 56452- 3201 Apr, Chronic pain G89.29 ; Hypokalemia E87.6 and Insomnia, unspecified type G47.00 [facility] [id number] [place] [address] 49709- 2988 Apr, [facility] [id number] [place] [address] 82943- 8387 Apr, Chronic pain G89.29 [facility] [id number] [place] [address] 83626- 1535 Apr, [facility] [id number] [place] [address] 14305- 8980 Mar, [facility] [address] [place] [address] 67993- 0491 Mar, Insomnia, unspecified type G47.00 [facility] [id number] [place] [address] 80861- 5750 Mar, Chronic pain G89.29 [facility] [address] [place] [address] 90266- 7719 Mar, [facility] [id number] [place] [address] 55871- 0062 Feb, [facility] [address] [place] [address] 44099- 7672 Feb, [facility] [id number] [place] [address] 48741- 4655 Feb, [facility] [address], [place] [address]- 7145 Feb, [facility] [address] [place] [address] 02962- 8597 Feb, [facility] [address] [place] [address] 09469- 5997 Jan, [facility] [id number] [place] [address] 13544- 1964 26 Jan, 2016 [facility] [address] [place] [address] 42775- 4983 20 Jan, 2016 [facility] [id number] [place] [address] 05236- 7616 13 Jan, 2016 [facility] [id number] [place] [address] 21216- 9507 Jan, [facility] [id number] [place] [address] 40990- 8918 07 Jan, 2016 Chronic pain G89.29 [facility] [id number] [place] [address] 10670- 3442 Jan, Chronic pain G89.29 and Fibromyalgia M79.7 [facility] [id number] [place] [address] 93435- 1550 Dec, Depression, unspecified depression type F32.9 and Generalized anxiety disorder 300.02 [facility] [address] [place] [address] 86647- 6063 Dec, Dysthymia F34.1 ; Insomnia, unspecified type G47.00 and Chronic pain G89.29 [facility] [address] [place] [address] 70393- 7854 Dec, Chronic pain G89.29 [facility] [address] [place] [address] 07149- 9560 Dec, Insomnia, unspecified type G47.00 [facility] [id number] [place] [address] 65560- 6257 Dec, Fibromyalgia M79.7 and Chronic pain G89.29 [facility] [id number] [place] [address] 16313- 4091 Dec, [facility] [id number] [place] [address] 29670- 4111 Dec, [facility] [id number] [place] [address] 69171- 6381 Dec, [facility] [id number] [place] [address] 36237- 1754 Dec, [facility] [id number] [place] [address] 45597- 1213 Dec, Chronic pain G89.29 [facility] [id number] [place] [address] 22409- 0267 Dec, [facility] [id number] [place] [address] 70071- 5696 Dec, [facility] [id number] [place] [address] 72015- 4391 Dec, [facility] [id number] [place] [address] 99761- 5911 Dec, Chronic pain G89.29 and Dysthymia F34.1 [facility] [id number] [place] [address] 55924- 3033 Nov, [facility] [id number] [place] [address] 67276- 4460 Nov, Hypokalemia E87.6 and Chronic pain G89.29 [facility] [id number] [place] [address] 69894- 9713 Nov, Back pain M54.9 and Pain in right knee M25.561 [facility] [id number] [place] [address] 80732- 0919 Nov, [facility] [address] [place] [address] 68928- 7856 Nov, Chronic pain G89.29 [facility] [address] [place] [address] 98860 2546 Nov, Chronic pain G89.29 ; Weight loss R63.4 ; Bone pain M89.8X9 and Insomnia, unspecified type G47.00 [facility] [address] [place] [address] 58147- 1295 Nov, Chronic pain G89.29 [facility] [id number] [place] [address] 13164 2546 Nov, Chronic pain G89.29 [facility] [id number] [place] [address] 55762- 3462 Oct, Chronic pain G89.29 [facility] [id number] [place] [address] 41489- 5540 Oct, UTI symptoms R39.9 [facility] [id number] [place] [address] 93249- 7279 Oct, Chronic pain G89.29 [facility] [address] [place] [address] 47031- 7186 Oct, Chronic pain G89.29 [facility] [address] [place] [address] 06424 2548 Oct, Chronic pain G89.29 [facility] [address] [place] [address] 31867- 8615 Oct, Right upper quadrant abdominal pain R10.11 [facility] [id number] [place] [address] 38949- 2723 Oct, Chronic pain G89.29 [facility] [address] [place] [address] 41802 254 Oct, [facility] [address] [address]- 5474 September, Chronic pain G89.29 [facility] [id number] [place] [address] 79509- 9293 September, Dysuria R30.0 and Urinary tract infection without hematuria , site unspecified N39.0 [facility] [address] [place] [address] 88121- 4138 September, [facility] [id number] [place] [address] 36685- 8332 September, Dysuria R30.0 [facility] [id number] [place] [address] 44341- 4594 September, Chronic pain G89.29 [facility] [id number] [place] [address] 22040- 8753 September, Chronic pain G89.29 and Essential hypertension I10 [facility] [address] [place] [address] 54147- 6557 September, [facility] [id number] [place] [address] 38168- 1812 September, [facility] [id number] [place] [address] 00398- 1549 September, [facility] [address] [place] [address] 58161- 9091 Aug, UTI symptoms R39.9 [facility] [id number] [place] [address] 57761- 3542 Aug, Dysuria R30.0 [facility] [id number] [place] [address] 15411- 8801 Aug, [facility] [id number] [place] [address] 03408- 4737 Aug, [facility] [address] [place] [address] 71476- 3243 Aug, [facility] [address] [address] Aug, Chronic pain G89.29 [facility] [id number] [place] [address] [id number]- 9515 07 Aug, 2015 Dysthymia F34.1 [facility] [id number] [address] Aug, Conjunctivitis, unspecified conjunctivitis type, unspecified laterality H10.9 [facility] [id number] [place] [address] 46514- 6736 31 Jul, 2015 Chronic pain G89.29 ; Back pain M54.9 ; Tobacco abuse Z72.0 and Weight decrease R63.4 [facility] [address] [place] [address] 66103- 0048 30 Jul, 2015 [facility] [id number] [place] [address] 79248- 2466 30 Jul, 2015 [facility] [id number] [place] [address] 06524- 2446 24 Jul, 2015 Chronic pain G89.29 [facility] [id number] [place] [address] 25723- 6541 22 Jul, 2015 [facility] [address] [address] Jul, [facility] [address] [place] [address] 85028- 2866 18 Jul, 2015 [facility] [address] [address] 0413 17 Jul, 2015 [facility] [id number] [place] [address] 82475- 1092 17 Jul, 2015 Chronic pain G89.29 [facility] [address] [address] 16 Jul, 2015 Chronic pain G89.29 [facility] [id number] [address] Jul, [facility] [id number] [place] [address] 37362- 6743 Jul, [facility] [id number] [place] [address] 62639- 1187 Jul, [facility] [id number] [place] [address] 08347- 0373 Jul, [facility] [id number] [place] [address] 67902- 4804 Jun, [facility] [id number] [place] [address] [address]- 8705 Jun, Depression, unspecified depression type F32.9 [place] [id number] [place] [address] 51328- 5590 Jun, Pain in right knee M25.561 [place] [id number] [place] [address] 29410- 8322 Jun, Chronic pain G89.29 ; Back pain M54.9 ; Bone pain M89.8X9 and Weight loss R63.4 [place] [id number] [place] [address] 47299- 9365 Jun, [place] [id number] [place] [address] 01509- 2222 May, [facility] [id number] [place] [address] 12141- 2505 May, UTI symptoms R39.9 ; Pain in right knee M25.561 ; Right low back pain, with sciatica presence unspecified M54.5 ; Right foot pain M79.671 ; Hypokalemia E87.6 and Screening, lipid Z13.220 [place] [id number] [place] [address] 82997- 2142 May, [place] [id number] [place] [address] 08437- 7890 May, [facility] [id number] [place] [address] 35866- 7239 Mar, [facility] [id number] [place] [address] 11327- 6686 Mar, [facility] [id number] [place] [address] 23447- 8936 Mar, Hypokalemia E87.6 [facility] [id number] [place] [address] 79815 2546 Mar, Pain in right leg M79.604 ; Encounter for immunization Z23 ; Pain in right knee M25.561 and Hypokalemia E87.6 [facility] [id number] [place] [address] 60667- 2876 Jan, [facility] [id number] [place] [address] 71726 2546 Jan, [facility] [id number] [place] [address] 84881 2545 Jan, Abdominal pain, generalized 789.07 [facility] [id number] [place] [address] 87621 2546 Jan, Abdominal pain, generalized 789.07 [facility] [id number] [place] [address] 24994- 0096 Dec, [facility] [id number] [place] [address] 42118 2546 Dec, [facility] [id number] [place] [address] 12241- 8376 Dec, [facility] [id number] [place] [address] 03890 2547 Nov, Hallux valgus 735.0 and Hammertoe 735.4 [facility] [id number] [place] [address] 94376- 0374 Nov, [facility] [address] [address]- 4126 Nov, Hallux valgus 735.0 and Hammer toe 735.4 [facility] [address] [address]- 3936 Oct, [facility] [address] 0391 Oct, [facility] [address] [address]- 5690 Oct, Pre-op evaluation V72.84 [facility] [id number] [place] [address] 26356- 9864 Oct, [facility] [id number] 3379 Oct, [facility] [address] [address]- 0426 September, [facility] [address] [address]- 5131 September, [facility] [address] [address]- 5916 September, Hallux valgus (acquired) 735.0 and Other hammer toe ( acquired) 735.4 [facility] [address] [address]- 4931 Aug, [facility] [address] [address]- 6907 Aug, [facility] [address] 3135 Jul, [facility] [address] 9504 Jul, [facility] [address] 2245 Jul, [facility] [place] [facility] [address] [id number] [place] [address]- 9897 Jul, [facility] [place] [facility] [address] [id number] [place] [address]- 7475 Jul, [facility] [place] [facility] [address] [id number] [place] [address]- 6607 Jul, [facility] [place] [facility] [address] [id number] [place] [address]- 1457 Jul, [facility] [place] [facility] [address] [id number] [place] [address]- 2188 Jul, [facility] [place] [facility] [address] [id number] [place] [address]- 6965 Jun, 2014 [facility] [place] [facility] [address] [facility] [id number] [place] [address]- 1046 Jun, 2014 [facility] [place] [facility] [address] [id number] [place] [address]- 3395 Jun, 2014 [facility] [place] [facility] [address] [id number] [place] [address]- 5305 Jun, 2014 [facility] [place] [facility] [address] [facility] [id number] [place] [address]- 9068 Jun, 2014 [facility] [place] [facility] [address] [facility] [id number] [place] [address]- 2868 Jun, 2014 [facility] [place] [facility] [address] [id number] [place] [address]- 9755 Jun, 2014 [facility] [place] [facility] [address] [id number] [place] [address]- 6460 Jun, 2014 [facility] [place] [facility] [address] [id number] [place] [address]- 0227 Jun, 2014 [facility] [place] [facility] [address] [facility] [id number] [place] [address]- 5292 Jun, 2014 [facility] [place] [facility] [address] [id number] [place] [address]- 8451 May, [facility] [address] [id number] [place] [address]- 2675 May, [facility] [place] [facility] [address] [id number] [place] [address]- 8204 May, [facility] [address] [id number] [place] [address]- 7482 May, [facility] [address] [id number] [place] [address]- 5372 May, [facility] [address] [id number] [place] [address]- 5595 May, [facility] [address] [id number] [place] [address]- 4653 May, [facility] [address] [id number] [place] [address]- 9255 May, [facility] [address] [id number] [place] [address]- 6798 May, [facility] [address] [id number] [place] [address]- 7178 May, [facility] [address] [id number] [place] [address]- 5875 May, [facility] [place] [facility] [address] [id number] [place] [address]- 5048 May, [facility] [address] [id number] [place] [address]- 8054 May, [facility] [place] [facility] [address] [id number] [place] [address]- 1074 May, [facility] [place] [facility] [address] [id number] [place] [address]- 5196 May, [facility] [place] [facility] [address] [id number] [place] [address]- 1483 May, [facility] [place] [facility] [address] [id number] [place] [address]- 3943 May, [facility] [place] [facility] [address] [id number] [place] [address]- 4954 May, [facility] [place] [facility] [address] [id number] [place] [address]- 2820 Apr, [facility] [place] [facility] [address] [id number] [place] [address]- 8896 Apr, [facility] [place] [facility] [address] [id number] [place] [address]- 6745 Apr, [facility] [place] [facility] [address] [id number] [place] [address]- 3815 Apr, [facility] [place] [facility] [address] [id number] [place] [address]- 1396 Apr, [facility] [place] [facility] [address] [id number] [place] [address]- 7080 Apr, [facility] [place] [facility] [address] [id number] [place] [address]- 4050 Apr, [facility] [place] [facility] [address] [id number] [place] [address]- 8205 Apr, [facility] [place] [facility] [address] [id number] [place] [address]- 2146 Apr, [facility] [place] [facility] [address] [id number] [address]- 4419 Mar, [facility] [place] [facility] [address] [id number] [place] [address]- 0737 Mar, [facility] [place] [facility] [address] [id number] [place] [address]- 1629 Mar, [facility] [place] [facility] [address] [id number] [place] [address]- 5171 Mar, [facility] [place] [facility] [address] [id number] [address]- 5139 Mar, 2013 [facility] [place] [facility] [address] [id number] [place] [address]- 0346 Feb, 2013 [facility] [place] [facility] [address] [id number], [place] [address]- 4734 Feb, 2013 [facility] [place] [facility] [address] [id number] [place] [address]- 7389 Feb, 2013 [facility] [place] [facility] [address] [id number] [place] [address]- 2805 Feb, 2013 [facility] [place] [facility] [address] [id number] [place] [address]- 0413 Feb, 2013 [facility] [place] [facility] [address] [id number] [place] [address]- 6852 Feb, 2013 [facility] [place] [facility] [address] [facility] [id number], [place] [address]- 8730 Feb, 2013 [facility] [place] [facility] [address] [id number], [place] [address]- 9825 Feb, 2013 [facility] [place] [facility] [address] [facility] [id number], [place] [address]- 2843 Feb, 2013 [facility] [place] [facility] [address] [facility] [id number], [place] [address]- 2167 Feb, 2013 [facility] [place] [facility] [address] [id number], [place] [address]- 4152 Feb, 2013 [facility] [place] [facility] [address] [id number], [place] [address]- 1368 Feb, 2013 [facility] [place] [facility] [address] [id number], [place] [address]- 5991 Feb, 2013 [facility] [place] [facility] [address] [facility] [id number], [place] [address]- 1556 Feb, 2013 [facility] [place] [facility] [address] [facility] [id number], [place] [address]- 0568 Feb, 2013 [facility] [place] [facility] [address] [id number] [place] [address]- 5280 07 Feb, 2014 [facility] [place] [facility] [address] [id number] [place] [address]- 4286 23 Jan, 2013 [facility] [place] [facility] [address] [id number] [place] [address] 2546 23 Jan, 2013 [facility] [place] [facility] [address] [id number] [place] [address] 2546 20 Jan, 2013 [facility] [place] [facility] [address] [id number] [place] [address]- 2546 19 Jan, 2013 [facility] [place] [facility] [address] [id number] [place] [address]- 7036 Jan, [facility] [place] [facility] [address] [id number] [place] [address]- 6352 Jan, [facility] [place] [facility] [address] [id number] [place] [address]- 8703 Jan, [facility] [place] [facility] [address] [id number] [place] [address]- 7463 Jan, [facility] [place] [facility] [address] [id number] [place] [address]- 1224 Dec, [facility] [place] [facility] [address] [id number] [place] [address]- 8751 Dec, [facility] [place] [facility] [address] [id number] [place] [address]- 5965 Nov, [facility] [place] [facility] [address] [id number] [place] [address]- 5509 Nov, [facility] [place] [facility] [address] [id number] [place] [address]- 0198 Nov, [facility] [place] [facility] [address] [id number] [place] 2903 Nov, [facility] [place] [facility] [address] [id number] [place] [address]- 9937 Nov, [facility] [place] [facility] [address] [id number] [place] [address]- 4793 Nov, [facility] [place] [facility] [address] [id number] [place] [address]- 0998 Nov, [facility] [place] [facility] [address] [id number] [place] [address]- 2771 Nov, [facility] [place] [facility] [address] [id number] [place] [address]- 6642 Nov, [facility] [place] [facility] [address] [id number] [place] [address]- 4021 Oct, [facility] [place] [facility] [address] [id number] [place] [address]- 6952 Oct, [facility] [place] [facility] [address] [id number] [place] [address]- 4002 Oct, [facility] [place] [facility] [address] [id number] [place] [address]- 8353 Oct, [facility] [place] [facility] [address] [id number] [place] [address]- 7002 Oct, [facility] [place] [facility] [address] [id number] [place] [address]- 3482 Oct, [facility] [place] [facility] [address] [id number] [place] [address]- 3241 September, [facility] [place] [facility] [address] [id number] [place] [address]- 5407 September, [facility] [place] [facility] [address] [id number] [place] [address]- 4214 September, [facility] [place] [facility] [address] [id number] [place] [address]- 8686 September, [facility] [place] [facility] [address] [id number] [place] [address]- 2806 September, [facility] [place] [facility] [address] [id number] [place] [address]- 3466 September, [facility] [address] [id number] [place] [address]- 0216 September, [facility] [place] [facility] [address] [id number] [place] [address]- 8873 September, [facility] [address] [id number] [place] [address]- 8234 September, [facility] [place] [facility] [address] [id number] [place] [address]- 1179 September, [facility] [place] [facility] [address] [id number] [place] [address]- 6227 September, [facility] [place] [facility] [address] [id number] [place] [address]- 5820 September, [facility] [address] [id number] [place] [address]- 2255 September, [facility] [place] [facility] [address] [id number] [place] [address]- 0749 September, [facility] [place] [facility] [address] [id number] [place] [address]- 9521 September, [facility] [place] [facility] [address] [id number] [place] [address]- 6126 September, [facility] [place] [facility] [address] [id number] [place] [address]- 6475 September, [facility] [place] [facility] [address] [id number] [place] [address]- 6012 September, [facility] [place] [facility] [address] [id number] [place] [address]- 5122 September, [facility] [place] [facility] [address] [id number] [place] [address]- 6053 September, [facility] [place] [facility] [address] [id number] [place] [address]- 2112 Aug, [facility] [place] [facility] [address] [id number] [place] [address]- 7044 Aug, [facility] [place] [facility] [address] [id number] [place] [address]- 7487 Aug, [facility] [place] [facility] [address] [id number] [place] [address]- 1130 Aug, [facility] [place] [facility] [address] [id number] [place] [address]- 4786 Aug, [facility] [place] [facility] [address] [id number] [place] [address]- 3474 Aug, [facility] [place] [facility] [address] [id number] [place] [address]- 2219 Aug, [facility] [place] [facility] [address] [id number] [place] [address]- 9109 Aug, [facility] [place] [facility] [address] [id number] [place] [address]- 6158 Aug, [facility] [place] [facility] [address] [id number] [place] [address]- 7972 Aug, [facility] [place] [facility] [address] [id number] [place] [address]- 5914 14 Aug, 2013 [facility] [place] [facility] [address] [id number] [place] [address]- 1156 Aug, [facility] [place] [facility] [address] [id number] [place] [address]- 7642 Aug, [facility] [place] [facility] [address] [id number] [place] [address]- 3967 Aug, [facility] [place] [facility] [address] [id number] [place] [address]- 6667 Aug, [facility] [place] [facility] [address] [id number] [place] [address]- 9365 Jul, [facility] [place] [facility] [address] [id number] [place] [address]- 2546 31 Jul, 2013 [facility] [place] [facility] [address] [id number] [place] [address]- 0817 Jul, [facility] [place] [facility] [address] [id number] [place] 8166 Jul, [facility] [place] [facility] [address] [id number] [place] [address]- 1152 Jul, [facility] [place] [facility] [address] [id number] [place] [address]- 4624 Jul, [facility] [place] [facility] [address] [id number] [place] [address]- 6879 Jul, [facility] [place] [facility] [address] [id number] [place] [address]- 7935 Jul, [facility] [place] [facility] [address] [id number] [place] [address]- 8284 Jul, [facility] [place] [facility] [address] [id number] [place] [address]- 7490 Jul, [facility] [place] [facility] [address] [id number] [place] [address]- 3131 Jul, [facility] [place] [facility] [address] [id number] [place] [address]- 8593 Jul, [facility] [place] [facility] [address] [id number] [place] [address]- 2311 Jul, [facility] [place] [facility] [address] [id number] [place] [address]- 9535 Jul, [facility] [place] [facility] [address] [id number] [place] 2565 Jul, [facility] [place] [facility] [address] [id number] [place] [address]- 2245 Jun, [facility] [place] [facility] [address] [id number] [place] 2465 Jun, [facility] [place] [facility] [address] [id number] [place] [address]- 5338 Jun, [facility] [place] [facility] [address] [id number] [place] [address]- 6786 Jun, [facility] [place] [facility] [address] [id number] [place] [address]- 7866 Jun, [facility] [place] [facility] [address] [id number] [place] [address]- 1946 Jun, [facility] [place] [facility] [address] [id number] [place] [address]- 9125 May, [facility] [place] [facility] [address] [id number] [place] [address]- 2768 May, [facility] [place] [facility] [address] [id number] [place] [address]- 7616 May, [facility] [place] [facility] [address] [id number] [place] [address]- 0266 May, [facility] [place] [facility] [address] [id number] [place] [address]- 7813 May, [facility] [place] [facility] [address] [id number] [place] [address]- 1732 May, [facility] [place] [facility] [address] [id number] [place] [address]- 7744 May, [facility] [place] [facility] [address] [id number] [place] [address]- 1969 May, [facility] [place] [facility] [address] [id number] [place] [address]- 3905 May, [facility] [place] [facility] [address] [id number] [place] [address]- 0219 May, [facility] [place] [facility] [address] [id number] [place] [address]- 5517 May, [facility] [place] [facility] [address] [id number] [place] [address]- 6867 May, [facility] [place] [facility] [address] [id number] [place] [address] May, [facility] [place] [facility] [address] [id number] [place] [address] May, [facility] [place] [facility] [address] [id number] [place] [address] May, [facility] [place] [facility] [address] [id number] [place] [address] Apr, [facility] [place] [facility] [address] [id number] [place] [address] Apr, [facility] [place] [facility] [address] [id number] [place] [address] Apr, [facility] [place] [facility] [address] [id number] [place] [address] Apr, [facility] [place] [facility] [address] [id number] [place] [address] Apr, [facility] [place] [facility] [address] [id number] [place] [address] Apr, [facility] [place] [facility] [address] [id number] [place] [address] Apr, [facility] [place] [facility] [address] [id number] [place] [address]69 Apr, [facility] [place] [facility] [address] [id number], [place] [address] 1996 Apr, [facility] [place] [facility] [address] [id number] [place] [address] Apr, [facility] [place] [facility] [address] [id number] [place] [address] Mar, [facility] [place] [facility] [address] [id number] [place] [address] Mar, [facility] [place] [facility] [address] [id number] [place] [address] Mar, [facility] [address] [id number] [place] [address] Mar, [facility] [address] [id number] [place] [address] Mar, [facility] [address] [id number] [place] [address] Mar, [facility] [address] [id number] [place] [address] Mar, [facility] [address] [id number] [place] [address] 1984 Mar, [facility] [address] [id number] [place] [address] Mar, [facility] [address] [id number] [place] [address] Mar, [facility] [address] [id number] [place] [address] Mar, [facility] [address] [id number] [place] [address]- 8664 Mar, [facility] [address] [id number] [place] [address]- [address] Mar, [facility] [address] [id number] [place] [address] Mar, [facility] [address] [id number], [place] [address] 18 Mar, 2013 [facility] [place] [facility] [address] [id number] [place] [address]- [address] 18 Mar, 2013 [facility] [place] [facility] [address] [id number] [place] [address]- [address]28 14 Mar, 2013 [facility] [address] [id number] [place] [address]- [address] 14 Mar, 2013 [facility] [place] [facility] [address] [id number] [place] [address]- [address] 12 Mar, 2013 [facility] [place] [facility] [address] [id number] [place] [address] 268[address] Mar, [facility] [place] [facility] [address] [id number] [place] [address] Mar, [facility] [place] [facility] [address] [id number] [place] [address] Mar, [facility] [place] [facility] [address] [id number] [place] [address] Mar, [facility] [place] [facility] [address] [id number] [place] [address] Feb, [facility] [place] [facility] [address] [id number] [place] [address] Feb, [facility] [place] [facility] [address] [id number], [place] [address] Feb, [facility] [place] [facility] [address] [id number] [place] [address]- [address] Feb, [facility] [place] [facility] [address] [id number], [place] [address] 15 Feb, 2013 [facility] [place] [facility] [address] [id number], [place] [address] Feb, [facility] [place] [facility] [address] [id number], [place] [address] 09 Feb, 2013 [facility] [place] [facility] [address] [id number], [place] [address] Feb, [facility] [place] [facility] [address] [id number], [place] [address] 04 Feb, 2013 [facility] [place] [facility] [address] [id number] [address] Feb, [facility] [place] [facility] [address] [id number], [place] [address] 30 Jan, 2013 [facility] [place] [facility] [address] [id number] [place] [address] 26 Jan, 2013 [facility] [place] [facility] [address] [id number] [place] [address]- [address] 24 Jan, 2013 [facility] [place] [facility] [address] [id number] [place] [address] 23 Jan, 2013 [facility] [place] [facility] [address] [id number] [place] [address] 17 Jan, 2013 [facility] [place] [facility] [address] [id number] [place] [address]- [address] Dec, [facility] [place] [facility] [address] [id number] [place] [address] Dec, [facility] [place] [facility] [address] [id number] [place] [address] Dec, [facility] [place] [facility] [address] [id number] [place] [address] Dec, [facility] [place] [facility] [address] [id number] [place] [address]- [address] Dec, [facility] [place] [facility] [address] [id number] [place] [address] Dec, [facility] [place] [facility] [address] [id number] [place] [address]- [address] Dec, [facility] [place] [facility] [address] [id number] [place] [address] Nov, [facility] [place] [facility] [address] [id number] [place] [address] Nov, [facility] [place] [facility] [address] [id number] [place] [address] Nov, [facility] [place] [facility] [address] [id number] [place] [address] Nov, [facility] [place] [facility] [address] [id number] [place] [address] Nov, [facility] [address] [id number] [place] [address] Oct, [facility] [address] [id number] [place] [address] 25[address] Oct, [facility] [address] [id number] [place] [address] Oct, [facility] [address] [id number] [place] [address] 288[address] September, [facility] [address] [id number] [place] [address] September, [facility] [address] [id number] [place] [address] 9166 September, [facility] [address] [id number] [place] [address]- 0880 September, [facility] [address] [id number] [place] [address]- 9232 September, [facility] [address] [id number] [place] [address]- 5157 September, [facility] [address] [id number] [place] [address]- 6255 September, [facility] [address] [id number] [place] [address]- 1215 30 Aug, 2012 [facility] [address] [id number] [place] [address] 9965 Aug, [facility] [place] [facility] [address] [id number] [place] [address] 67[address] Aug, [facility] [place] [facility] [address] [id number] [place] [address]- 2546 Jul, [facility] [place] [facility] [address] [id number] [place] [address]- 1411 Jul, [facility] [place] [facility] [address] [id number] [place] [address]- 9578 26 Jul, 2012 [facility] [place] [facility] [address] [id number] [place] [address]- 1752 20 Jul, 2012 [facility] [place] [facility] [address] [facility] [id number] [place] [address]- 2791 18 Jul, 2012 [facility] [place] [facility] [address] [id number] [place] [address]- 1155 18 Jul, 2012 [facility] [place] [facility] [address] [id number] [place] [address]- 9020 Jul, [facility] [place] [facility] [address] [id number] [place] [address]- 9219 28 Jun, 2012 [facility] [place] [facility] [address] [facility] [id number] [place] [address]- 8884 Jun, [facility] [place] [facility] [address] [facility] [id number] [place] [address]- 0606 Jun, [facility] [place] [facility] [address] [facility] [id number] [place] [address]- 7247 Jun, [facility] [place] [facility] [address] [facility] [id number] [place] [address]- 3335 Jun, [facility] [place] [facility] [address] [facility] [id number] [place] [address]- 0120 Jun, [facility] [place] [facility] [address] [facility] [id number] [place] [address]- 5784 Jun, [facility] [place] [facility] [address] [facility] [id number] [place] [address]- 7014 Jun, [facility] [place] [facility] [address] [facility] [id number] [place] [address]- 6993 Jun, [facility] [place] [facility] [address] [facility] [id number] [place] [address]- 8706 Jun, [facility] [place] [facility] [address] [id number] [place] [address]- 3669 30 May, 2012 [facility] [place] [facility] [address] [id number] [place] [address]- 8836 22 May, 2012 [facility] [place] [facility] [address] [id number] [place] [address] 2546 17 May, 2012 [facility] [place] [facility] [address] [id number] [place] [address]- 2076 17 May, 2012 [facility] [place] [facility] [address] [id number] [place] [address]- 7656 15 May, 2012 [facility] [place] [facility] [address] [id number] [place] [address]- 2155 07 May, 2012 [facility] [place] [facility] [address] [id number] [place] [address] 31 Apr, 2012 [facility] [place] [facility] [address] [id number] [place] [address]- 1611 31 Apr, 2012 [facility] [place] [facility] [address] [id number] [place] [address]- 1167 Apr, [facility] [place] [facility] [address] [id number] [place] [address]- 7728 28 Apr, 2012 [facility] [place] [facility] [address] [id number] [place] [address]- 7688 Apr, [facility] [place] [facility] [address] [id number] [place] [address] 2546 Apr, [facility] [place] [facility] [address] [id number] [place] [address] 2543 Apr, [facility] [place] [facility] [address] [id number] [place] [address] 2546 29 Mar, 2012 [facility] [place] [facility] [address] [id number] [place] [address] 2546 29 Mar, 2012 [facility] [place] [facility] [address] [id number] [place] [address]- 8410 Mar, [facility] [place] [facility] [address] [id number] [place] [address]- 1858 Mar, [facility] [place] [facility] [address] [id number] [place] [address]- 3760 Mar, [facility] [place] [facility] [address] [facility] [id number] [place] [address]- 4912 Mar, [facility] [place] [facility] [address] [id number] [place] [address]- 4879 Mar, [facility] [place] [facility] [address] [id number] [place] [address]- 7094 Mar, [facility] [place] [facility] [address] [id number] [place] [address]- 0969 Mar, [facility] [place] [facility] [address] [id number] [place] [address]- 1833 Mar, [facility] [place] [facility] [address] [id number] [place] [address]- 3597 Mar, [facility] [place] [facility] [address] [id number] [place] [address]- 1836 Mar, [facility] [place] [facility] [address] [id number] [place] [address]- 0494 Mar, [facility] [place] [facility] [address] [id number] [address]- [address] Mar, [facility] [place] [facility] [address] [id number], [place] [address]- 8427 Mar, [facility] [place] [facility] [address] [id number] [place] [address]- 0070 Mar, [facility] [place] [facility] [address] [id number], [place] [address]- 4768 Mar, [facility] [place] [facility] [address] [facility] [id number] [address]- 3885 Feb, [facility] [place] [facility] [address] [id number] [place] [address]- 4162 25 Feb, 2012 [facility] [place] [facility] [address] [id number] [place] [address]- 9391 17 Feb, 2011 [facility] [place] [facility] [address] [id number] [place] [address] 17 Feb, 2012 [facility] [place] [facility] [address] [id number] [place] [address]- 0239 16 Feb, 2011 [facility] [place] [facility] [address] [id number] [place] [address]- 8327 16 Feb, 2012 [facility] [place] [facility] [address] [id number] [place] [address] Feb, [facility] [place] [facility] [address] [id number] [place] [address]- 6913 Feb, [facility] [place] [facility] [address] [id number] [place] [address]- 8627 05 Feb, 2012 [facility] [place] [facility] [address] [id number] [place] [address]- 4770 04 Feb, 2012 [facility] [place] [facility] [address] [id number] [place] [address]- 8908 02 Feb, 2012 [facility] [place] [facility] [address] [facility] [id number] [place] [address]- 4117 27 Jan, 2011 [facility] [place] [facility] [address] [id number] [place] [address]- 9856 25 Sep, 2011 [facility] [place] [facility] [address] [id number] [place] [address]- 2547 13 Sep, 2011 [facility] [place] [facility] [address] [id number] [place] [address]- 8410 12 Jan, 2012 [facility] [place] [facility] [address] [id number] [place] [address]- 1566 07 Jan, 2011 [facility] [place] [facility] [address] [id number] [place] [address] Dec, [facility] [place] [facility] [address] [id number] [place] [address]- 7312 Dec, [facility] [place] [facility] [address] [id number] [place] [address]- 0528 Dec, [facility] [place] [facility] [address] [id number] [place] [address]- 6025 Dec, [facility] [place] [facility] [address] [id number] [place] [address]- 3746 Dec, [facility] [place] [facility] [address] [id number] [place] [address]- 2928 Dec, [facility] [place] [facility] [address] [id number] [place] [address]- 0947 Dec, [facility] [place] [facility] [address] [id number] [place] [address]- 5888 Dec, [facility] [place] [facility] [address] [id number] [place] [address]- 4211 Nov, [facility] [place] [facility] [address] [id number] [place] [address]- 6720 Nov, [facility] [place] [facility] [address] [id number] [place] [address]- 0971 Nov, [facility] [place] [facility] [address] [id number] [place] [address]- 1271 Nov, [facility] [place] [facility] [address] [id number] [place] [address]- 5028 Nov, [facility] [place] [facility] [address] [id number] [place] [address]- 8333 Oct, [facility] [place] [facility] [address] [id number] [place] [address]- 3267 Oct, [facility] [place] [facility] [address] [id number] [place] [address]- 0964 September, [facility] [place] [facility] [address] [id number] [place] [address]- 2546 September, [facility] [address] [id number] [place] [address]- 1289 September, [facility] [place] [facility] [address] [id number] [place] [address]- 3306 September, [facility] [place] [facility] [address] [id number] [place] [address]- 6204 September, [facility] [place] [facility] [address] [id number] [place] [address]- 6394 September, [facility] [place] [facility] [address] [id number] [place] [address]- 4723 September, [facility] [place] [facility] [address] [id number] [place] [address]- 2349 September, [facility] [place] [facility] [address] [id number] [place] [address]- 2274 September, [facility] [place] [facility] [address] [id number] [place] [address]- 9366 September, [facility] [place] [facility] [address] [id number] [place] [address]- 2092 September, [facility] [place] [facility] [address] [id number] [place] [address]- 3505 September, [facility] [place] [facility] [address] [id number] [place] [address]- 8825 September, [facility] [place] [facility] [address] [id number] [place] [address]- 1526 September, [facility] [place] [facility] [address] [id number] [place] [address]- 7854 Aug, [facility] [place] [facility] [address] [id number] [place] [address]- 1382 Aug, [facility] [place] [facility] [address] [id number] [place] [address]- 7997 Aug, [facility] [place] [facility] [address] [id number] [place] [address]- 4186 11 Aug, 2011 [facility] [address] [id number] [place] [address]- 7596 23 Jul, 2011 [facility] [address] [facility] [id number] [place] [address]- 2546 13 Jul, 2011 [facility] [address] [facility] [id number] [place] [address]- 9206 13 Jul, 2011 [facility] [address] [facility] [id number] [place] [address]- 8766 28 Jun, 2011 [facility] [id number] [place] [id number] 26 Jun, 2011 [facility] [address] [id number] [place] [address]- 9206 13 Jun, 2011 [facility] [address] [id number] [place] [address]- 4026 10 Jun, 2011 [facility] [address] [id number] [place] [address]- 4064 07 Jun, 2011 [facility] [address] [id number] [place] [address]- 8556 07 Jun, 2011 [facility] [address] [id number] [place] [address]- 8596 03 Jun, 2011 [facility] [address] [id number] [place] [address]- 7496 Jun, [facility] [address] [facility] [id number] [place] [address]- 9318 May, [facility] [place] [facility] [address] [facility] [id number] [place] [address]- 2256 May, [facility] [place] [facility] [address] [facility] [id number] [place] [address]- 0056 May, [facility] [place] [facility] [address] [id number] [place] [address]- 1188 May, [facility] [address] [id number] [place] [address]- 7411 May, [facility] [place] [facility] [address] [id number] [place] [address]- 0334 May, [facility] [place] [facility] [address] [id number] [place] [address]- 3211 May, [facility] [place] [facility] [address] [id number] [place] [address]- 1846 May, [facility] [place] [facility] [address] [id number] [place] [address]- 4172 May, [facility] [place] [facility] [address] [id number] [place] [address]- 7109 May, [facility] [place] [facility] [address] [id number] [place] [address]- 4916 May, [facility] [place] [facility] [address] [id number] [place] [address]- 5891 May, [facility] [place] [facility] [address] [id number] [place] [address]- 5988 May, [facility] [place] [facility] [address] [id number] [place] [address]- 0316 May, [facility] [place] [facility] [address] [id number] [place] [address]- 6167 Apr, [facility] [place] [facility] [address] [id number], [place] [address]- 5304 Apr, [facility] [place] [facility] [address] [id number] [place] [address]- 0228 Apr, [facility] [place] [facility] [address] [id number], [place] [address]- 9806 Mar, [facility] [place] [facility] [address] [id number] [place] [address]- 2546 Mar, [facility] [place] [facility] [address] [id number] [place] [address]- 6541 31 Feb, 2011 [facility] [place] [facility] [address] [id number] [place] [address]- 4936 26 Feb, 2011 [facility] [place] [facility] [address] [id number] [place] [address] 2546 21 Feb, 2011 [facility] [place] [facility] [address] [id number] [place] [address] 2546 20 Feb, 2011 [facility] [place] [facility] [address] [id number] [place] [address] 2546 13 Feb, 2011 [facility] [place] [facility] [address] [id number] [place] [address]- 1370 28 Apr, 2010 [facility] [place] [facility] [address] [id number] [place] [address] 2546 22 Apr, 2010 [facility] [place] [facility] [address] [id number] [place] [address]- 1606 16 Apr, 2010 [facility] [place] [facility] [address] [id number] [place] [address] 254 15 Apr, 2010 [facility] [place] [facility] [address] [id number] [place] [address] 2546 15 Apr, 2010 [facility] [place] [facility] [address] [facility] [id number] [place] [address] 2544 Apr, [facility] [place] [facility] [address] [id number] [place] [address] 2546 24 Mar, 2010 [facility] [place] [facility] [address] [id number] [place] [address] 2546 17 Mar, 2010 [facility] [place] [facility] [address] [id number] [place] [address] 2546 17 Mar, 2010 [facility] [place] [facility] [address] [id number] [place] [address] 2546 28 Feb, 2010 [facility] [place] [facility] [address] [id number] [place] [address] 254 22 Feb, 2010 [facility] [address] [id number] [address]- 9714 Feb, [facility] [id number] [address]- 1603 Feb, [facility] [id number], [place] [address]- 9537 Dec, [facility] [address]00565[address], [place] [address]- 4382 Dec, [facility] [id number], [place] [address]- 8169 Oct, [facility] [id number], [place] [address]- 2222 Mar, [facility] [address]00565[place], [place] [address]- 0647 Mar, [facility] [address]00565[place] [address]- 8218 September, IMMUNIZATIONS No Known Immunizations SOCIAL HISTORY Never Assessed REASON FOR VISIT Refill request PLAN OF CARE VITAL SIGNS MEDICATIONS Unknown [...]
--- OUTSIDE RECORDS SUMMARY | 2017-11-27 15:20 | XMS REPORT ---
Author Author VALERIE ZAVALA [facility] Address [address] [place] [address] Care Team Providers Care Parachute Marker Name Role Phone VALERIE ZAVALA Unavailable PROBLEMS Type Condition ICD9-CM Code SEA92-XE Code Onset Dates Condition Status SNOMED Code Problem Generalized anxiety disorder F41.1 Active 74881504 Problem Hypokalemia E87.6 Active 809228297 Problem Right low back pain, with sciatica presence unspecified M54.5 Active 907850116 Problem Post-traumatic stress disorder, chronic F43.12 Active 34735546 Problem Pain in right knee M25.561 Active 35347122 Problem Gastroesophageal reflux disease without esophagitis K21.9 Active 364002625 Problem UTI symptoms R39.9 Active 66238277 Problem Essential hypertension I10 Active 99224304 Problem Anxiety F41.9 Active 70516542 Problem Neuropathy G62.9 Active 084306466 Problem Other chronic pain G89.29 Active 42250070 Problem Generalized abdominal pain R10.84 Active 323896543 Problem Chronic pain G89.29 Active 25567046 Problem Back pain M54.9 Active 015044790 Problem Right foot pain M79.671 Active 75517220 Problem Panic attacks F41.0 Active 257603912 Problem Other emphysema J43.8 Active 70293297 Problem Kidney stones N20.0 Active 33454931 Problem Renal calculus, right N20.0 Active 31749519 Problem Weight decrease R63.4 Active 225250091 Problem Tobacco abuse Z72.0 Active 85457819 Problem Bone pain M89.8X9 Active 06391446 Problem Depression, unspecified depression type F32.9 Active 23729134 Problem Insomnia, unspecified type G47.00 Active 975116198 Problem Pulmonary emphysema, unspecified emphysema type J43.9 Active 19135192 Problem Right upper quadrant abdominal pain R10.11 Active 796418781 Problem Weight loss R63.4 Active 935709724 ALLERGIES No Information ENCOUNTERS Encounter Location Date Diagnosis [facility] [address] [address] 28 Oct, 2017 Medicare welcome exam Z00.00 [facility] [id number] [place] [address] 96735- 0977 18 Oct, 2017 Gross hematuria R31.0 ; Urinary tract infection without hematuria, site unspecified N39.0 and Weakness R53.1 [facility] [id number] [address] 7020 13 Oct, 2017 [facility] [id number] [place] [address] 28550- 4183 Oct, [facility] [id number] [place] [address] 51197- 4205 Oct, Medicare welcome exam Z00.00 [facility] [id number] [place] [address] 92535- 8461 September, Back pain M54.9 and Right anterior knee pain M25.561 [facility] [id number] [place] [address] 57024- 5582 September, [facility] [id number] [place] [address] 97791- 7825 September, [facility] [id number] [place] [address] 97962- 9190 September, Essential hypertension I10 [facility] [id number] [address]- 0982 September, [facility] [id number] [place] [address] 41887- 4236 September, RLQ abdominal pain R10.31 ; Low back pain M54.5 and Other chronic pain G89.29 [facility] [address] [address] 0484 Aug, Medicare welcome exam Z00.00 [facility] [id number] [address] 8256 Aug, [facility] [id number] [place] [address] 03772- 6518 Aug, Acute pyelonephritis N10 and Medicare welcome exam Z00.00 [facility] [id number] [place] [address] 78135 -1216 Aug, Dysuria R30.0 and Acute pyelonephritis N10 [facility] [id number] [place] [address] 49577- 4428 Aug, [facility] [id number] [place] [address] 53776- 0391 Aug, [facility] [id number] [place] [address] 00697- 8608 Aug, [facility] [id number] [place] [address] 31318- 6512 Aug, [facility] [id number] [place] [address] 91907- 4371 Jul, [facility] [id number] [place] [address] 95734- 7989 Jul, Renal calculus, right N20.0 and Medicare welcome exam Z00.00 [facility] [id number] [place] [address] 34693 -6595 Jul, Dysuria R30.0 and Renal calculus, right N20.0 [facility] [id number] [place] [address] 72783- 9118 Jul, Medicare welcome exam Z00.00 [facility] [id number] [place] [address] 50677- 8508 13 Jun, 2017 Gastroesophageal reflux disease without esophagitis K21.9 and Generalized abdominal pain R10.84 [facility] [id number] [place] [address] 91408- 2784 09 Jun, 2017 Medicare welcome exam Z00.00 [facility] [id number] [place] [address] 45740- 1535 Jun, [facility] [id number] [place] [address] 57247- 1965 05 Jun, 2017 Medicare welcome exam Z00.00 and Encounter for screening mammogram for malignant neoplasm of breast Z12.31 [facility] [id number] [place] [address] 09833- 4972 Jun, Chronic pain G89.29 [facility] [id number] [place] [address] 01328- 6686 May, [facility] [id number] [place] [address] 30869- 9744 May, Pelvic pain R10.2 [facility] [id number] [place] [address] 54366- 1533 May, Pelvic pain R10.2 [facility] [id number] [place] [address] 32206 -4022 May, Renal calculus, right N20.0 [facility] [id number] [place] [address] 33231- 9334 May, Hematuria, unspecified type R31.9 and Nephrolithiasis N20.0 [facility] [id number] [place] [address] 09745 -5884 May, Dysuria R30.0 and Nephrolithiasis N20.0 [facility] [id number] [place] [address] 02521- 3562 May, [facility] [id number] [place] [address] 57231 -2714 May, Abdominal pain R10.9 and Kidney stone N20.0 [facility] [id number] [place] [address] 76408- 2513 May, [facility] [id number] [address]- 1629 May, Chronic pain G89.29 and Panic attacks F41.0 [facility] [id number] [place] [address] 86388- 0682 May, Urinary tract infection without hematuria, site unspecified N39.0 [facility] [id number] [place] [address] 79984- 7422 Apr, Right lower quadrant abdominal pain R10.31 and Abnormal serum lipase level R74.8 [facility] [id number] [place] [address] 19417- 1336 Apr, Recurrent urinary tract infection N39.0 [facility] [id number] [place] [address] 50739- 8898 Apr, UTI symptoms R39.9 ; Recurrent urinary tract infection N39.0 and Pelvic pain R10.2 [facility] [id number] [place] [address] 53492- 2195 Apr, Chronic pain G89.29 and Panic attacks F41.0 [facility] [id number] [place] [address] 98477- 5150 Apr, Dysuria R30.0 [facility] [id number] [place] [address] 90652- 4519 Apr, [facility] [id number] [place] [address] 70511- 8171 Apr, Dysuria R30.0 and Urinary tract infection without hematuria , site unspecified N39.0 [facility] [address] [address]- 4144 Mar, UTI symptoms R39.9 [facility] [id number] [place] [address] 53906- 1517 Mar, [facility] [id number] [address]- 7760 Mar, Panic attacks F41.0 and Chronic pain G89.29 [facility] [id number] [place] [address] 65944- 2459 Mar, [facility] [address] 54928- 9733 Mar, Dysuria R30.0 [facility] [address] 62730- 9923 Mar, Dysuria R30.0 [facility] [address] 02567- 5630 Feb, Chronic pain G89.29 ; Shortness of breath R06.02 ; Weight loss R63.4 ; Encounter for immunization Z23 ; Bone pain M89.8X9 ; Right anterior knee pain M25.561 and Cough R05 [facility] [id number] [place] [address] 20864- 6232 Feb, Shortness of breath R06.02 [facility] [address] 69514- 0063 Feb, [facility] [address] 71137- 3427 Feb, Panic attacks F41.0 and Chronic pain G89.29 [facility] [id number] [place] [address] 51940- 0127 Feb, [facility] [id number] [place] [address] 91199- 8791 Feb, Panic attacks F41.0 ; Shortness of breath R06.02 and Encounter for immunization Z23 [facility] [id number] [place] [address] 60085- 9778 Jan, [facility] [address] 24904- 5574 15 Jan, 2017 Anxiety F41.9 and Chronic pain G89.29 [facility] [address] 61805- 4142 Dec, Anxiety F41.9 and Chronic pain G89.29 [facility] [id number] [place] [address] 32044- 1557 Nov, Chronic pain G89.29 [facility] [id number] [place] [address] 29411- 2300 Nov, Anxiety F41.9 [facility] [address] 54434- 9472 Nov, Chronic pain G89.29 ; Essential hypertension I10 and Other emphysema J43.8 [facility] [address] 54440- 4516 Oct, Anxiety F41.9 [facility] [address] 11981- 1229 Oct, [facility] [address] 41929- 3240 Oct, Chronic pain G89.29 [facility] [address] 31183- 4702 September, Recurrent UTI N39.0 ; Neuropathy G62.9 and Anxiety F41.9 [facility] [id number] [place] [address] 34873- 0743 September, [facility] [id number] [place] [address] 11175- 5999 September, Chronic pain G89.29 [facility] [id number] [place] [address] 31800- 5327 September, [facility] [id number] [place] [address] 72124- 3381 Aug, Post-traumatic stress disorder, chronic F43.12 ; Chronic urinary tract infection N39.0 ; Gastroesophageal reflux disease without esophagitis K21.9 ; Chronic pain G89.29 ; Essential hypertension I10 and Tobacco abuse Z72.0 [facility] [address] [place] [address] -[address]22 22 Aug, 2016 [facility] [address] [address]- 0309 Aug, Chronic pain G89.29 [facility] [address] [address]- 3700 18 Aug, 2016 Insomnia, unspecified type G47.00 [facility] [address] [address]- 3818 Aug, [facility] [address] [address]- 8729 24 Jul, 2016 Chronic pain G89.29 [facility] [address] [address]- 5896 Jul, [facility] [address] [address]- 0916 Jul, [facility] [address] [address]- 7145 Jul, [facility] [address] [address]- 0737 15 Jul, 2016 Recurrent UTI (urinary tract infection) N39.0 [facility] [address] [address]- 1098 14 Jul, 2016 [facility] [address] [address]- 4335 27 Jun, 2016 Chronic pain G89.29 [facility] [id number] [address]- 6443 17 Jun, 2016 [facility] [address] [address]- 2892 13 Jun, 2016 [facility] [id number] [address]- 1133 30 May, 2016 Chronic pain G89.29 [facility] [id number] [place] [address] 70708- 9426 May, Weight loss R63.4 and Shortness of breath R06.02 [facility] [id number] [place] [address] 88321- 5541 May, Chronic pain G89.29 ; Weight loss R63.4 and Tobacco abuse Z72.0 [facility] [id number] [place] [address] 61015- 7526 May, [facility] [id number] [place] [address] 98176- 3306 May, Hypoxia R09.02 [facility] [id number] [place] [address] 39982- 2607 May, [facility] [id number] [place] [address] 55519- 8151 May, Pulmonary emphysema, unspecified emphysema type J43.9 [facility] [id number] [place] [address] 66858 -5062 May, [facility] [id number] [place] [address] 86153- 3596 May, [facility] [id number] [place] [address] 21647- 9529 May, [facility] [id number] [place] [address] 35774- 2063 May, Chronic pain G89.29 ; Encounter for immunization Z23 ; Right anterior knee pain M25.561 and Cough R05 [facility] [id number] [place] [address] 02750- 8146 Apr, Chronic pain G89.29 [facility] [id number] [place] [address] 11046- 8054 Apr, [facility] [id number] [place] [address] 08250- 0386 Apr, Generalized anxiety disorder F41.1 and Depression, unspecified depression type F32.9 [place] [address] [facility] [id number] [address] 2546 Apr, Chronic pain G89.29 ; Hypokalemia E87.6 and Insomnia, unspecified type G47.00 [facility] [address] [id number] [place] [address] 2546 Apr, [facility] [address] [facility] [id number] [place] [address] 2546 Apr, Chronic pain G89.29 [facility] [address] [facility] [id number] [place] [address] 2546 Apr, [facility] [address] [facility] [id number] [place] [address]- 2666 Mar, [facility] [id number] [place] [address] 2546 Mar, Insomnia, unspecified type G47.00 [facility] [address] [facility] [id number] [place] [address]- 9536 Mar, Chronic pain G89.29 [facility] [address] [facility] [id number] [place] [address] 2546 Mar, [facility] [id number] [place] [address] 2546 Feb, [facility] [address] [facility] [id number] [address]- 3396 Feb, [facility] [address] [facility] [id number] [address] 2546 Feb, [facility] [address] [facility] [id number] [address] 2546 Feb, [facility] [address] [facility] [id number] [address] 2546 Feb, [facility] [id number] [address] 2546 Jan, [facility] [address] [address]- 3293 26 Jan, 2015 [facility] [id number] [place] [address] 34323- 5950 20 Jan, 2016 [facility] [address] [address]- 3776 13 Jan, 2016 [facility] [id number] [place] [address] 34398- 1532 12 Jan, 2016 [facility] [id number] [place] [address] 87613- 9394 07 Jan, 2016 Chronic pain G89.29 [facility] [id number] [place] [address] 88079- 1028 Jan, Chronic pain G89.29 and Fibromyalgia M79.7 [facility] [address] [place] [address] 33057- 1708 Dec, Depression, unspecified depression type F32.9 and Generalized anxiety disorder 300.02 [facility] [id number] [place] [address] 51124- 4181 Dec, Dysthymia F34.1 ; Insomnia, unspecified type G47.00 and Chronic pain G89.29 [facility] [address] [address]- 0447 Dec, Chronic pain G89.29 [facility] [address] [address]- 8766 Dec, Insomnia, unspecified type G47.00 [facility] [address] [address]- 6834 Dec, Fibromyalgia M79.7 and Chronic pain G89.29 [facility] [address] [address]- 6149 Dec, [facility] [address] [address]- 8274 Dec, [facility] [address] [address]- 9229 Dec, [facility] [id number] [place] [address] 31566- 8296 Dec, [facility] [id number] [place] [address] 78539- 5086 Dec, Chronic pain G89.29 [facility] [id number] [place] [address] 07938- 0789 Dec, [facility] [id number] [place] [address] 87051- 2528 Dec, [facility] [id number] [place] [address] 78062- 0952 Dec, [facility] [id number] [place] [address] 83388- 9454 Dec, Chronic pain G89.29 and Dysthymia F34.1 [facility] [id number] [place] [address] 25334- 8506 Nov, [facility] [id number] [place] [address] 21265- 7709 Nov, Hypokalemia E87.6 and Chronic pain G89.29 [facility] [id number] [place] [address] 44877- 9904 Nov, Back pain M54.9 and Pain in right knee M25.561 [facility] [id number] [place] [address] 54132- 0819 Nov, [facility] [id number] [place] [address] 61501- 0690 Nov, Chronic pain G89.29 [facility] [address] [place] [address] 67890- 6133 Nov, Chronic pain G89.29 ; Weight loss R63.4 ; Bone pain M89.8X9 and Insomnia, unspecified type G47.00 [place] [address] [facility] [id number] [address]- 9619 18 Nov, 2015 Chronic pain G89.29 [facility] [id number] [place] [address] 74808 2546 Nov, Chronic pain G89.29 [facility] [id number] [place] [address] 70632 2546 30 Oct, 2015 Chronic pain G89.29 [facility] [id number] [place] [address] 64590- 7842 Oct, UTI symptoms R39.9 [facility] [id number] [place] [address] 43687- 4809 Oct, Chronic pain G89.29 [facility] [id number] [place] [address] 42188- 5612 Oct, Chronic pain G89.29 [facility] [id number] [place] [address] 51141 2548 Oct, Chronic pain G89.29 [facility] [id number] [place] [address] 16503- 5292 Oct, Right upper quadrant abdominal pain R10.11 [facility] [address] [address]- 0027 Oct, Chronic pain G89.29 [facility] [id number] [place] [address] 47597 2547 Oct, [facility] [address] [address]- 8284 September, Chronic pain G89.29 [facility] [id number] [place] [address] 08136- 7600 September, Dysuria R30.0 and Urinary tract infection without hematuria , site unspecified N39.0 [facility] [address] [address]- 2740 September, [facility] [address] [address]- 8953 September, Dysuria R30.0 [facility] [id number] [place] [address] 96445- 4496 September, Chronic pain G89.29 [facility] [id number] [place] [address] 80182- 4032 September, Chronic pain G89.29 and Essential hypertension I10 [facility] [id number] [place] [address] 67094- 4602 September, [facility] [id number] [place] [address] 14425- 4972 September, [facility] [id number] [place] [address] 35421- 3210 September, [facility] [id number] [place] [address] 38762- 0267 Aug, UTI symptoms R39.9 [facility] [id number] [place] [address] 75299- 3769 Aug, Dysuria R30.0 [facility] [id number] [place] [address] 07038- 2114 Aug, [facility] [id number] [place] [address] 80298- 6299 Aug, [facility] [id number] [place] [address] 80134- 3211 Aug, [facility] [id number] [place] [address] 30907- 7050 Aug, Chronic pain G89.29 [facility] [id number] [place] [address] 38473- 9767 Aug, Dysthymia F34.1 [facility] [id number] [place] [address] 38511- 4940 Aug, Conjunctivitis, unspecified conjunctivitis type, unspecified laterality H10.9 [facility] [id number] [address] 31 Jul, 2015 Chronic pain G89.29 ; Back pain M54.9 ; Tobacco abuse Z72.0 and Weight decrease R63.4 [facility] [id number] [address] 30 Jul, 2015 [facility] [id number] [place] [address] 24833 2545 30 Jul, 2015 [facility] [id number] [place] [address] 53209- 1573 24 Jul, 2015 Chronic pain G89.29 [facility] [id number] [place] [address] 79012- 2986 22 Jul, 2015 [facility] [id number] [place] [address] 24343- 8981 21 Jul, 2015 [facility] [id number] [place] [address] 20520- 3295 18 Jul, 2015 [facility] [id number] [place] [address] 56393- 5398 17 Jul, 2015 [facility] [id number] [address] 17 Jul, 2015 Chronic pain G89.29 [facility] [id number] [address] 2544 16 Jul, 2015 Chronic pain G89.29 [facility] [facility] [id number] [address] 15 Jul, 2015 [facility] [address] [address] 10 Jul, 2015 [facility] [address] [address] 07 Jul, 2015 [facility] [address] [address] Jul, [facility] [id number] [place] [address] 82741- 2511 Jun, [facility] [address] [address]- [address] Jun, Depression, unspecified depression type F32.9 [facility] [id number] [place] [address] 14146- 4042 Jun, Pain in right knee M25.561 [facility] [address] [address]- 0707 Jun, Chronic pain G89.29 ; Back pain M54.9 ; Bone pain M89.8X9 and Weight loss R63.4 [facility] [id number] [place] [address] 36245- 9722 Jun, [facility] [address] [address]- 4220 May, [facility] [id number] [place] [address] 29829- 6509 May, UTI symptoms R39.9 ; Pain in right knee M25.561 ; Right low back pain, with sciatica presence unspecified M54.5 ; Right foot pain M79.671 ; Hypokalemia E87.6 and Screening, lipid Z13.220 [facility] [id number] [place] [address] 64515- 3449 May, [facility] [id number] [place] [address] 94179- 3893 May, [facility] [id number] [place] [address] 26671- 0818 Mar, [facility] [id number] [place] [address] 26858- 3417 Mar, [facility] [id number] [place] [address] 12634- 6286 Mar, Hypokalemia E87.6 [facility] [address] [address] 0715 Mar, Pain in right leg M79.604 ; Encounter for immunization Z23 ; Pain in right knee M25.561 and Hypokalemia E87.6 [facility] [address] [address] 2546 Jan, [facility] [id number] [place] [address] 74459 2546 Jan, [facility] [id number] [place] [address] 44910 2546 Jan, Abdominal pain, generalized 789.07 [facility] [id number] [place] [address] 17128 2546 Jan, Abdominal pain, generalized 789.07 [facility] [id number] [place] [address] 62529- 2316 Dec, [facility] [id number] [place] [address] 30592- 8420 Dec, [facility] [id number] [place] [address] 24752- 5186 Dec, [facility] [id number] [place] [address] 32015 2542 Nov, Hallux valgus 735.0 and Hammertoe 735.4 [facility] [id number] [place] [address] 44970 2546 Nov, [facility] [id number] [place] [address] 17149 2546 Nov, Hallux valgus 735.0 and Hammer toe 735.4 [facility] [address] [address] 2546 Oct, [facility] [id number] [place] [address] 43439- 8808 Oct, [facility] [address] [address]- 6585 Oct, Pre-op evaluation V72.84 [facility] [id number] [address]- 9642 Oct, [facility] [id number] [place] [address] 49465- 6639 Oct, [facility] [id number] [place] [address] 93234- 1976 September, [facility] [id number] [place] [address] 48263- 2772 September, [facility] [id number] [place] [address] 67006- 0661 September, Hallux valgus (acquired) 735.0 and Other hammer toe ( acquired) 735.4 [facility] [id number] [address]- 4067 Aug, [facility] [address] [address]- 6113 Aug, [facility] [address] [address]- 0403 Jul, [facility] [address] [address]- 8561 Jul, [facility] [address] [address]- 1742 Jul, [facility] [address] [address]- 1847 Jul, [facility] [id number] [address]- 2369 Jul, [facility] [address] [address]- 6302 Jul, [facility] [id number] [place] [address] 05629- 7293 Jul, [facility] [place] [facility] [address] [id number] [place] [address]- 0984 Jul, [facility] [place] [facility] [address] [id number] [place] [address]- 0395 Jun, 2014 [facility] [place] [facility] [address] [facility] [id number] [place] [address]- 7553 Jun, 2014 [facility] [place] [facility] [address] [id number] [place] [address]- 7967 Jun, 2014 [facility] [place] [facility] [address] [id number] [place] [address]- 5172 Jun, 2014 [facility] [place] [facility] [address] [facility] [id number] [place] [address]- 8599 Jun, [facility] [place] [facility] [address] [facility] [id number] [place] [address]- 9640 Jun, [facility] [place] [facility] [address] [facility] [id number] [place] [address]- 0848 Jun, [facility] [place] [facility] [address] [facility] [id number] [place] [address]- 5491 Jun, [facility] [place] [facility] [address] [facility] [id number] [place] [address]- 2395 Jun, [facility] [place] [facility] [address] [facility] [id number] [place] [address]- 8728 Jun, [facility] [place] [facility] [address] [facility] [id number] [place] [address]- 1050 May, [facility] [place] [facility] [address] [id number] [place] [address]- 8638 May, [facility] [place] [facility] [address] [facility] [id number] [place] [address]- 2445 May, [facility] [place] [facility] [address] [facility] [id number] [place] [address]- 9225 May, [facility] [place] [facility] [address] [id number] [place] [address]- 3547 May, [facility] [place] [facility] [address] [id number] [place] [address]- 9708 May, [facility] [place] [facility] [address] [id number] [place] [address]- 0816 May, [facility] [place] [facility] [address] [id number] [place] [address]- 0473 May, [facility] [address] [id number] [place] [address]- 6046 May, [facility] [place] [facility] [address] [id number] [place] [address]- 0757 May, [facility] [address] [id number] [place] [address]- 3166 May, [facility] [address] [id number] [place] [address]- 2810 May, [facility] [place] [facility] [address] [id number] [place] [address]- 7294 May, [facility] [place] [facility] [address] [id number] [place] [address]- 9113 May, [facility] [place] [facility] [address] [id number] [place] [address]- 2436 May, [facility] [place] [facility] [address] [id number] [place] [address]- 1864 May, [facility] [place] [facility] [address] [id number] [place] [address]- 0920 May, [facility] [place] [facility] [address] [id number] [place] [address]- 3714 May, [facility] [place] [facility] [address] [id number] [place] [address]- 6540 Apr, [facility] [place] [facility] [address] [id number] [address]- 6800 Apr, [facility] [place] [facility] [address] [id number] [place] [address]- 4043 Apr, [facility] [place] [facility] [address] [id number] [place] 8486 Apr, [facility] [place] [facility] [address] [id number] [place] [address]- 9340 Apr, [facility] [place] [facility] [address] [id number] [place] [address]- 0959 Apr, [facility] [place] [facility] [address] [id number] [place] [address]- 3584 Apr, [facility] [place] [facility] [address] [id number] [place] [address]- 6949 Apr, [facility] [place] [facility] [address] [id number] [place] [address]- 2067 Apr, [facility] [place] [facility] [address] [id number] [place] [address]- 5746 Mar, [facility] [place] [facility] [address] [id number] [place] [address]- 5778 Mar, [facility] [place] [facility] [address] [id number] [place] [address]- 1839 Mar, [facility] [place] [facility] [address] [id number] [address]- 9785 Mar, [facility] [place] [facility] [address] [id number] [address]- 3673 Mar, [facility] [place] [facility] [address] [id number] [place] [address]- 6614 Feb, [facility] [place] [facility] [address] [id number] [place] [address]- 5352 Feb, [facility] [place] [facility] [address] [id number] [place] [address]- 9855 Feb, [facility] [place] [facility] [address] [id number] [place] [address]- 5787 Feb, 2013 [facility] [place] [facility] [address] [id number] [place] 3870 Feb, 2013 [facility] [place] [facility] [address] [id number] [place] [address]- 1325 Feb, 2013 [facility] [place] [facility] [address] [id number] [place] [address]- 9134 Feb, 2013 [facility] [place] [facility] [address] [id number] [place] [address]- 6822 Feb, 2013 [facility] [place] [facility] [address] [id number] [place] 7991 Feb, 2013 [facility] [place] [facility] [address] [id number] [place] [address]- 4253 Feb, 2013 [facility] [place] [facility] [address] [id number] [place] [address]- 3172 Feb, 2013 [facility] [place] [facility] [address] [id number] [place] [address]- 8076 Feb, 2013 [facility] [place] [facility] [address] [id number] [place] [address]- 9713 Feb, 2013 [facility] [place] [facility] [address] [id number] [place] [address]- 8689 Feb, 2013 [facility] [place] [facility] [address] [id number] [place] [address]- 1268 Feb, 2013 [facility] [place] [facility] [address] [id number] [place] [address]- 2326 Feb, 2013 [facility] [place] [facility] [address] [id number] [place] [address]- 6568 Jan, 2013 [facility] [place] [facility] [address] [id number] [place] [address]- 9380 23 Jan, 2013 [facility] [place] [facility] [address] [id number] [place] [address]- 8378 20 Jan, 2013 [facility] [place] [facility] [address] [id number] [place] [address]- 5204 Jan, 2013 [facility] [place] [facility] [address] [id number] [place] [address]- 1636 Jan, [facility] [place] [facility] [address] [id number] [place] [address]- 1511 Jan, 2013 [facility] [place] [facility] [address] [id number] [place] [address]- 9221 Jan, 2013 [facility] [place] [facility] [address] [id number] [place] [address]- 8264 Jan, [facility] [place] [facility] [address] [id number] [place] [address]- 8148 Dec, [facility] [place] [facility] [address] [id number] [place] [address]- 2183 Dec, [facility] [place] [facility] [address] [id number] [place] [address]- 0951 Nov, [facility] [place] [facility] [address] [id number] [place] [address]- 2341 Nov, [facility] [place] [facility] [address] [id number] [place] [address]- 6660 Nov, [facility] [place] [facility] [address] [id number] [place] [address]- 4110 Nov, [facility] [place] [facility] [address] [id number] [place] [address]- 8391 Nov, [facility] [place] [facility] [address] [id number] [place] [address]- 4448 Nov, [facility] [place] [facility] [address] [id number] [place] [address]- 0686 Nov, [facility] [place] [facility] [address] [id number] [place] 0631 Nov, [facility] [place] [facility] [address] [id number] [place] [address]- 3775 Nov, [facility] [place] [facility] [address] [id number] [place] [address]- 9529 Oct, [facility] [place] [facility] [address] [id number] [place] [address]- 1198 Oct, [facility] [place] [facility] [address] [id number] [place] [address]- 0907 Oct, [facility] [place] [facility] [address] [id number] [place] [address]- 8489 Oct, [facility] [place] [facility] [address] [id number] [place] [address]- 7331 Oct, [facility] [place] [facility] [address] [id number] [place] [address]- 6436 Oct, [facility] [place] [facility] [address] [id number] [place] [address]- 2732 September, [facility] [place] [facility] [address] [id number] [place] [address]- 8107 September, [facility] [place] [facility] [address] [id number] [place] [address]- 7298 September, [facility] [place] [facility] [address] [id number] [place] [address]- 6039 September, [facility] [place] [facility] [address] [id number] [place] [address]- 9425 September, [facility] [place] [facility] [address] [id number] [place] [address]- 1499 September, [facility] [place] [facility] [address] [id number] [place] 8118 September, [facility] [place] [facility] [address] [id number] [place] [address]- 4591 September, [facility] [place] [facility] [address] [id number] [place] [address]- 5569 September, [facility] [place] [facility] [address] [id number] [place] [address]- 8389 September, [facility] [place] [facility] [address] [id number] [place] [address]- 4724 September, [facility] [place] [facility] [address] [id number] [place] [address]- 5710 September, [facility] [place] [facility] [address] [id number] [place] [address]- 5356 September, [facility] [place] [facility] [address] [id number] [place] [address]- 6760 September, [facility] [place] [facility] [address] [id number] [place] [address]- 3879 September, [facility] [place] [facility] [address] [id number] [place] [address]- 8001 September, [facility] [place] [facility] [address] [id number] [place] [address]- 1545 September, [facility] [place] [facility] [address] [id number] [place] [address]- 4128 September, [facility] [place] [facility] [address] [id number] [place] [address]- 2499 September, [facility] [place] [facility] [address] [id number] [place] [address]- 8889 September, [facility] [place] [facility] [address] [id number] [place] [address]- 7138 Aug, [facility] [place] [facility] [address] [id number] [place] [address]- 1418 Aug, [facility] [place] [facility] [address] [id number] [place] [address]- 7880 Aug, [facility] [place] [facility] [address] [id number] [place] [address]- 4891 Aug, [facility] [place] [facility] [address] [id number] [place] [address]- 8989 Aug, 2013 [facility] [place] [facility] [address] [id number] [place] [address]- 9107 18 Aug, 2013 [facility] [place] [facility] [address] [id number] [place] [address]- 0262 16 Aug, 2013 [facility] [place] [facility] [address] [id number] [place] [address]- 2122 16 Aug, 2013 [facility] [place] [facility] [address] [id number] [place] [address]- 8035 15 Aug, 2013 [facility] [place] [facility] [address] [id number] [place] [address]- 1376 15 Aug, 2013 [facility] [place] [facility] [address] [id number] [place] [address]- 1746 14 Aug, 2013 [facility] [place] [facility] [address] [id number] [place] [address]- 3701 05 Aug, 2013 [facility] [place] [facility] [address] [id number] [place] [address]- 3864 05 Aug, 2013 [facility] [place] [facility] [address] [id number] [place] [address]- 5314 Aug, [facility] [place] [facility] [address] [id number] [place] [address]- 9503 Aug, [facility] [place] [facility] [address] [id number] [place] [address]- 3030 31 Jul, 2013 [facility] [place] [facility] [address] [id number] [address]- 9788 31 Jul, 2013 [facility] [place] [facility] [address] [id number] [place] [address]- 6517 27 Jul, 2013 [facility] [place] [facility] [address] [id number] [place] [address]- 8819 27 Jul, 2013 [facility] [place] [facility] [address] [id number] [place] [address]- 3110 20 Jul, 2013 [facility] [place] [facility] [address] [id number] [place] [address]- 1504 Jul, [facility] [place] [facility] [address] [id number] [place] [address]- 9313 Jul, [facility] [place] [facility] [address] [id number] [place] [address]- 3020 18 Jul, 2013 [facility] [place] [facility] [address] [id number] [place] [address]- 7745 Jul, [facility] [place] [facility] [address] [id number] [place] [address]- 4446 Jul, [facility] [place] [facility] [address] [id number] [place] [address]- 7723 Jul, [facility] [place] [facility] [address] [id number] [place] [address]- 9427 Jul, [facility] [place] [facility] [address] [id number] [place] [address]- 8837 Jul, [facility] [place] [facility] [address] [id number] [place] [address]- 7777 Jul, [facility] [place] [facility] [address] [id number] [place] [address]- 8220 Jul, [facility] [place] [facility] [address] [facility] [id number] [place] [address]- 2840 18 Jun, 2013 [facility] [place] [facility] [address] [id number] [place] [address]- 5852 18 Jun, 2013 [facility] [place] [facility] [address] [id number] [place] [address]- 6618 13 Jun, 2013 [facility] [place] [facility] [address] [id number] [place] [address]- 7590 13 Jun, 2013 [facility] [place] [facility] [address] [id number] [place] [address]- 8326 04 Jun, 2013 [facility] [place] [facility] [address] [id number] [place] [address]- 0847 Jun, [facility] [place] [facility] [address] [id number] [place] [address]- 9507 May, [facility] [place] [facility] [address] [id number] [place] [address]- 9274 May, [facility] [place] [facility] [address] [id number] [place] [address] May, [facility] [place] [facility] [address] [id number] [place] [address] May, [facility] [place] [facility] [address] [id number] [place] [address] May, [facility] [place] [facility] [address] [id number] [place] [address] May, [facility] [place] [facility] [address] [id number] [place] [address] May, [facility] [place] [facility] [address] [id number] [place] [address] May, [facility] [place] [facility] [address] [id number] [place] [address] May, [facility] [place] [facility] [address] [id number] [place] [address] May, [facility] [place] [facility] [address] [id number] [address] May, [facility] [place] [facility] [address] [id number] [address] May, [facility] [place] [facility] [address] [id number] [place] [address] May, [facility] [place] [facility] [address] [id number] [address] May, [facility] [place] [facility] [address] [id number] [place] [address] May, [facility] [place] [facility] [address] [id number] [place] [address] Apr, [facility] [address] [id number] [place] [address] Apr, [facility] [address] [id number] [place] [address] Apr, [facility] [address] [id number] [place] [address] Apr, [facility] [place] [facility] [address] [id number] [place] [address] Apr, [facility] [address] [id number] [place] [address] Apr, [facility] [address] [id number] [place] [address] Apr, [facility] [address] [id number] [place] [address] Apr, [facility] [address] [id number] [place] [address]- [address] Apr, [facility] [address] [id number] [place] [address]- [address] Apr, [facility] [address] [id number] [place] [address] Mar, [facility] [address] [id number] [place] [address] Mar, [facility] [place] [facility] [address] [id number] [place] [address] Mar, [facility] [place] [facility] [address] [id number] [place] [address]- [address] Mar, [facility] [place] [facility] [address] [id number] [place] [address] Mar, [facility] [place] [facility] [address] [id number] [place] [address] Mar, [facility] [place] [facility] [address] [id number] [place] [address]60 Mar, [facility] [place] [facility] [address] [id number] [place] [address] Mar, [facility] [place] [facility] [address] [id number] [place] [address]- [address] Mar, [facility] [place] [facility] [address] [id number] [place] [address]- [address] Mar, [facility] [place] [facility] [address] [id number] [place] [address]- [address] Mar, [facility] [place] [facility] [address] [id number] [place] [address] Mar, [facility] [place] [facility] [address] [id number] [place] [address] Mar, [facility] [place] [facility] [address] [id number] [place] [address] Mar, [facility] [place] [facility] [address] [id number] [place] [address]- [address] 18 Mar, 2013 [facility] [place] [facility] [address] [id number] [place] [address]- [address] 18 Mar, 2013 [facility] [place] [facility] [address] [id number] [place] [address]- [address] 14 Mar, 2013 [facility] [place] [facility] [address] [id number] [place] [address]- [address] 14 Mar, 2013 [facility] [place] [facility] [address] [id number] [place] [address]- [address] 12 Mar, 2013 [facility] [place] [facility] [address] [id number] [place] [address]- [address] 12 Mar, 2013 [facility] [place] [facility] [address] [id number] [place] [address]- [address] 11 Mar, 2013 [facility] [place] [facility] [address] [id number] [place] [address]- [address] Mar, [facility] [place] [facility] [address] [id number] [place] [address]- 47[address] Mar, [facility] [place] [facility] [address] [id number] [place] [address] 39[address] Feb, [facility] [place] [facility] [address] [id number] [place] [address] Feb, [facility] [place] [facility] [address] [id number] [place] [address]- [address] Feb, [facility] [place] [facility] [address] [id number] [place] [address]- [address] 16 Feb, 2013 [facility] [place] [facility] [address] [id number] [place] [address]- [address] 15 Feb, 2013 [facility] [place] [facility] [address] [id number] [place] [address]- [address] Feb, [facility] [place] [facility] [address] [id number] [address] Feb, [facility] [place] [facility] [address] [id number] [place] [address]- [address]234 Feb, [facility] [place] [facility] [address] [id number] [place] [address]- [address]27 Feb, [facility] [place] [facility] [address] [id number] [address] Feb, [facility] [place] [facility] [address] [id number][place] [address] 30 Jan, 2012 [facility] [place] [facility] [address] [id number] [place] [address] 26 Jan, 2012 [facility] [place] [facility] [address] [id number] [place] [address]- [address] 24 Jan, 2012 [facility] [place] [facility] [address] [id number] [place] [address]- [address] 23 Jan, 2012 [facility] [place] [facility] [address] [id number] [place] [address]- [address] Jan, [facility] [address] [id number] [place] [address]- [address] Dec, [facility] [address] [id number] [place] [address] Dec, [facility] [address] [id number] [place] [address]- 62[address] Dec, [facility] [address] [id number] [place] [address]- [address] Dec, [facility] [address] [id number] [place] [address] Dec, [facility] [address] [id number] [place] [address] Dec, [facility] [address] [id number] [place] [address] Dec, [facility] [address] [id number] [place] [address] Nov, [facility] [address] [id number] [place] [address] Nov, [facility] [address] [id number] [place] [address] Nov, [facility] [place] [facility] [address] [id number] [place] [address] Nov, [facility] [address] [id number] [place] [address] Nov, [facility] [place] [facility] [address] [id number] [place] [address] Oct, [facility] [place] [facility] [address] [id number] [place] [address] Oct, [facility] [place] [facility] [address] [id number] [place] [address] 97[address] Oct, [facility] [address] [id number] [place] [address] September, [facility] [address] [id number] [place] [address] September, [facility] [address] [id number] [place] [address] September, [facility] [address] [id number] [place] [address] 5[address] September, [facility] [address] [id number] [place] [address]- 8532 September, [facility] [address] [id number] [place] [address]- 6746 September, [facility] [address] [id number] [place] [address] 65[address] September, [facility] [address] [id number] [place] [address] Aug, [facility] [address] [id number] [place] [address]- 8518 Aug, [facility] [address] [id number] [place] [address]- 0645 Aug, [facility] [address] [id number] [place] [address]- 1732 29 Jul, 2012 [facility] [place] [facility] [address] [id number] [place] [address]- 6[address] Jul, [facility] [place] [facility] [address] [id number] [place] [address]- 5544 Jul, [facility] [place] [facility] [address] [id number] [place] [address]- 4466 20 Jul, 2012 [facility] [place] [facility] [address] [id number] [place] [address]- 7936 18 Jul, 2012 [facility] [place] [facility] [address] [id number] [place] [address]- 0676 Jul, [facility] [address] [id number] [place] [address] 2546 Jul, [facility] [address] [id number] [place] [address] 2546 Jun, [facility] [address] [id number] [place] [address] 2546 Jun, [facility] [address] [id number] [place] [address] 2543 Jun, [facility] [address] [id number] [place] [address]- 2646 Jun, [facility] [address] [id number] [place] [address] 2546 15 Jun, 2012 [facility] [address] [id number] [place] [address]- 6406 Jun, [facility] [address] [id number] [place] [address]- 4090 Jun, [facility] [address] [id number] [place] [address] 6[address] Jun, [facility] [address] [id number] [place] [address]- 9247 Jun, [facility] [place] [facility] [address] [id number] [place] [address] 2546 Jun, [facility] [address] [id number] [place] [address] 2541 May, [facility] [place] [facility] [address] [id number] [place] [address] 2546 May, [facility] [place] [facility] [address] [id number] [place] [address] 2546 May, [facility] [place] [facility] [address] [id number] [place] [address]- 4886 May, [facility] [place] [facility] [address] [id number] [place] [address]- 9961 15 May, 2012 [facility] [place] [facility] [address] [id number] [place] [address]- 6806 May, [facility] [place] [facility] [address] [id number] [place] [address]- 2484 31 Apr, 2012 [facility] [place] [facility] [address] [id number] [place] [address]- 0508 31 Apr, 2012 [facility] [place] [facility] [address] [id number] [place] [address]- 3853 Apr, [facility] [place] [facility] [address] [id number] [place] [address]- 5934 Apr, [facility] [place] [facility] [address] [id number] [place] [address]- 1974 Apr, [facility] [place] [facility] [address] [id number] [place] [address]- 9268 Apr, [facility] [place] [facility] [address] [id number] [place] [address]- 4462 Apr, [facility] [place] [facility] [address] [id number] [place] [address]- 9379 29 Mar, 2012 [facility] [place] [facility] [address] [id number] [place] [address]- 1556 29 Mar, 2012 [facility] [place] [facility] [address] [id number] [place] [address]- 2159 27 Mar, 2012 [facility] [place] [facility] [address] [id number] [place] [address]- 9343 Mar, [facility] [place] [facility] [address] [id number] [place] [address]- 2699 Mar, [facility] [place] [facility] [address] [id number] [place] [address]- 0421 18 Mar, 2012 [facility] [place] [facility] [address] [id number] [address] Mar, [facility] [place] [facility] [address] [id number] [place] [address]- 6946 Mar, [facility] [place] [facility] [address] [id number] [address] Mar, [facility] [place] [facility] [address] [id number] [place] [address]- 3954 Mar, [facility] [place] [facility] [address] [id number] [place] [address]- 1295 Mar, [facility] [place] [facility] [address] [id number] [place] [address]- 2486 Mar, [facility] [place] [facility] [address] [id number] [place] [address]- 7762 Mar, [facility] [place] [facility] [address] [id number][place] [address]- [address]28 Mar, [facility] [place] [facility] [address] [id number][place] [address]- 5189 Mar, [facility] [place] [facility] [address] [id number] [place] [address]- 9882 Mar, [facility] [place] [facility] [address] [facility] [id number] [address]- 8175 Mar, [facility] [place] [facility] [address] [id number][place] [address]- 5557 Feb, [facility] [place] [facility] [address] [id number][place] [address]- 7777 Feb, [facility] [place] [facility] [address] [id number][place] [address]- 4248 Feb, [facility] [place] [facility] [address] [id number][place] [address]- 9825 Feb, [facility] [place] [facility] [address] [facility] [id number] [address]- 9252 Feb, [facility] [place] [facility] [address] [id number] [place] [address]- 4299 16 Feb, 2012 [facility] [place] [facility] [address] [id number] [place] [address]- 6936 Feb, [facility] [place] [facility] [address] [id number] [place] [address] 2546 11 Feb, 2012 [facility] [place] [facility] [address] [id number] [place] [address]- 7676 05 Feb, 2012 [facility] [place] [facility] [address] [id number] [place] [address]- 3213 04 Feb, 2012 [facility] [place] [facility] [address] [id number] [place] [address]- 4491 02 Feb, 2012 [facility] [place] [facility] [address] [id number] [place] [address]- 4007 27 Jan, 2012 [facility] [place] [facility] [address] [id number] [place] [address]- 8187 25 Jan, 2012 [facility] [place] [facility] [address] [id number] [place] [address]- 8926 13 Jan, 2012 [facility] [place] [facility] [address] [id number] [place] [address]- 4491 12 Jan, 2012 [facility] [place] [facility] [address] [id number] [place] [address]- 8537 07 Jan, 2012 [facility] [place] [facility] [address] [id number] [place] [address]- 9034 31 Dec, 2011 [facility] [place] [facility] [address] [id number] [place] [address] 2541 24 Dec, 2011 [facility] [place] [facility] [address] [id number] [place] [address] 2546 22 Dec, 2011 [facility] [place] [facility] [address] [id number] [place] [address] 2546 18 Dec, 2011 [facility] [place] [facility] [address] [id number] [place] [address]- 9173 Dec, [facility] [place] [facility] [address] [id number] [place] [address]- 4494 Dec, [facility] [place] [facility] [address] [id number] [place] [address]- 9306 Dec, [facility] [place] [facility] [address] [id number] [place] [address] 2546 Dec, [facility] [place] [facility] [address] [id number] [place] [address]- 8460 Nov, [facility] [place] [facility] [address] [id number] [place] [address]- 8167 Nov, [facility] [place] [facility] [address] [id number] [place] [address]- 4146 Nov, [facility] [place] [facility] [address] [id number] [place] [address]- 6696 Nov, [facility] [place] [facility] [address] [id number] [place] [address]- 0544 Nov, [facility] [place] [facility] [address] [id number] [place] [address]- 1369 Oct, [facility] [place] [facility] [address] [id number] [place] [address]- 0176 Oct, [facility] [place] [facility] [address] [id number] [place] [address]- 0086 September, [facility] [place] [facility] [address] [id number] [place] [address]- 4576 September, [facility] [place] [facility] [address] [id number] [place] [address]- 9726 September, [facility] [place] [facility] [address] [id number] [place] [address]- 9926 September, [facility] [place] [facility] [address] [id number] [place] [address]- 2546 September, [facility] [place] [facility] [address] [id number] [place] [address]- 3775 September, [facility] [address] [id number] [place] [address]- 2017 September, [facility] [address] [id number] [place] [address]- 1906 September, [facility] [address] [id number] [place] [address]- 1216 September, [facility] [address] [id number] [place] [address]- 3746 September, [facility] [address] [id number] [place] [address]- 9205 September, [facility] [address] [id number] [place] [address]- 9106 September, [facility] [address] [id number] [place] [address]- 6428 September, [facility] [address] [id number] [place] [address]- 9411 September, [facility] [address] [id number] [place] [address]- 3177 24 Aug, 2011 [facility] [address] [id number] [place] [address]- 5226 Aug, [facility] [address] [id number] [place] [address]- 9603 13 Aug, 2011 [facility] [address] [id number] [place] [address]- 3640 Aug, [facility] [place] [facility] [address] [id number] [place] [address]- 8325 Jul[facility] [place] [facility] [address] [id number] [place] [address]- 0021 Jul, [facility] [place] [facility] [address] [id number] [place] [address]- 6762 Jul, [facility] [place] [facility] [address] [id number] [place] [address]- 9008 Jun, [facility] [address] [id number] [place] [id number] Jun, [facility] [address] [id number] [place] [address]- 0786 13 Jun, 2011 [facility] [place] [facility] [address] [id number] [place] [address]- 7818 Jun, [facility] [address] [id number] [place] [address]- 0783 Jun, [facility] [place] [facility] [address] [id number] [place] [address]- 3176 Jun, [facility] [address] [id number] [place] [address]- 8457 Jun, [facility] [address] [id number] [place] [address]- 0600 Jun, [facility] [place] [facility] [address] [id number] [place] [address]- 8311 May, [facility] [address] [id number] [address]- 2874 May, [facility] [place] [facility] [address] [id number] [address]- 3566 May, [facility] [place] [facility] [address] [id number][place] [address]- 7609 May, [facility] [place] [facility] [address] [id number] [place] [address]- 6423 May, [facility] [place] [facility] [address] [facility] [id number] [place] [address]- 3256 May, [facility] [place] [facility] [address] [id number][place] [address]- 1308 May, [facility] [place] [facility] [address] [id number][place] [address]- 0472 May, [facility] [address] [id number] [place] [address]- 7625 May, [facility] [place] [facility] [address] [id number][place] [address]- 9180 May, [facility] [place] [facility] [address] [facility] [id number] [place] [address]- 1921 17 May, 2011 [facility] [place] [facility] [address] [id number] [place] [address]- 2850 13 May, 2011 [facility] [place] [facility] [address] [facility] [id number] [place] [address], [place] [address]- 4900 May, [facility] [place] [facility] [address] [facility] [id number] [place] [address]- 9876 May, [facility] [id number] [address]- 8358 Apr, [facility] [place] [facility] [address] [facility] [id number] [place] [address]- 7357 Apr, [facility] [place] [facility] [address] [id number] [place] [address]- 3721 Apr, [facility] [place] [facility] [address] [id number] [address]- 6750 Mar, [facility] [place] [facility] [address] [facility] [id number][place] [address]- 9866 Mar, [facility] [place] [facility] [address] [facility] [id number][place] [address]- 7950 Feb, [facility] [place] [facility] [address] [id number] [place] [address]- 6682 Feb, [facility] [place] [facility] [address] [facility] [id number][place] [address]- 8136 Feb, [facility] [place] [facility] [address] [facility] [id number][place] [address]- 9644 Feb, [facility] [place] [facility] [address] [id number] [place] [address]- 0876 13 Feb, 2011 [facility] [place] [facility] [address] [id number] [place] [address]- 1836 28 Apr, 2010 [facility] [place] [facility] [address] [id number] [place] [address] 2546 22 Apr, 2010 [facility] [place] [facility] [address] [id number] [place] [address] 2546 16 Apr, 2010 [facility] [place] [facility] [address] [id number] [place] [address] 2546 15 Apr, 2010 [facility] [place] [facility] [address] [id number] [place] [address]- 7926 15 Apr, 2010 [facility] [place] [facility] [address] [id number] [place] [address]- 5068 Apr, [facility] [place] [facility] [address] [id number] [place] [address]- 7890 24 Mar, 2010 [facility] [place] [facility] [address] [id number] [place] [address]- 7101 17 Mar, 2010 [facility] [place] [facility] [address] [id number] [place] [address]- 4646 17 Mar, 2010 [facility] [place] [facility] [address] [id number] [place] [address]- 9315 28 Feb, 2010 [facility] [place] [facility] [address] [id number] [place] [address]- 8652 22 Feb, 2010 [facility] [place] [facility] [address] [id number] [place] [address] 2541 Feb, [facility] [place] [facility] [address] [id number] [place] [address]- 1666 15 Feb, 2010 [facility] [place] [facility] [address] [id number] [place] [address] 2546 18 Dec, 2009 [facility] [place] [facility] [address] [id number] [place] [address] 1274 Dec, [facility] [address] [facility] [id number] [place] [address]- [address] Oct, [facility] [address] [facility] [id number] [address]- 6546 Mar, [facility] [address] [facility] [id number] [address]- 2546 Mar, [facility] [address] [facility] [id number][place] [address]- 2546 September, IMMUNIZATIONS No Known Immunizations SOCIAL HISTORY Never Assessed REASON FOR VISIT Controlled Med Refill 07/17/17 PLAN OF CARE VITAL SIGNS MEDICATIONS Medication [...]
--- OUTSIDE RECORDS SUMMARY | 2017-11-27 15:21 | XMS REPORT ---
Author Author VALERIE ZAVALA [facility] Address [address] [place] [address] Care Team Providers Care Tool Crib Manager Name Role Phone VALERIE ZAVALA Unavailable PROBLEMS Type Condition ICD9-CM Code UOB18-PI Code Onset Dates Condition Status SNOMED Code Problem Generalized anxiety disorder F41.1 Active 66537178 Problem Hypokalemia E87.6 Active 579918375 Problem Right low back pain, with sciatica presence unspecified M54.5 Active 343108341 Problem Post-traumatic stress disorder, chronic F43.12 Active 23602327 Problem Pain in right knee M25.561 Active 19693691 Problem Gastroesophageal reflux disease without esophagitis K21.9 Active 809816767 Problem UTI symptoms R39.9 Active 30474134 Problem Essential hypertension I10 Active 54750051 Problem Anxiety F41.9 Active 71010081 Problem Neuropathy G62.9 Active 514257170 Problem Other chronic pain G89.29 Active 31638940 Problem Generalized abdominal pain R10.84 Active 012588484 Problem Chronic pain G89.29 Active 96420440 Problem Back pain M54.9 Active 451438339 Problem Right foot pain M79.671 Active 90552097 Problem Panic attacks F41.0 Active 777235452 Problem Other emphysema J43.8 Active 48820136 Problem Kidney stones N20.0 Active 37135639 Problem Renal calculus, right N20.0 Active 84335373 Problem Weight decrease R63.4 Active 642182117 Problem Tobacco abuse Z72.0 Active 61252676 Problem Bone pain M89.8X9 Active 21605996 Problem Depression, unspecified depression type F32.9 Active 25989414 Problem Insomnia, unspecified type G47.00 Active 685965487 Problem Pulmonary emphysema, unspecified emphysema type J43.9 Active 81430190 Problem Right upper quadrant abdominal pain R10.11 Active 014510011 Problem Weight loss R63.4 Active 634458496 ALLERGIES No Information ENCOUNTERS Encounter Location Date Diagnosis [facility] [id number] [address] Nov, [facility] [id number] [place] [address] 99405- 5302 Oct, Gross hematuria R31.0 ; Urinary tract infection without hematuria, site unspecified N39.0 and Weakness R53.1 [facility] [id number] [place] [address] 10651- 1623 Oct, [facility] [id number] [place] [address] 28797- 3789 Oct, [facility] [id number] [place] [address] 40143- 0266 Oct, Medicare welcome exam Z00.00 [facility] [id number] [place] [address] 67235- 0310 September, Back pain M54.9 and Right anterior knee pain M25.561 [facility] [id number] [place] [address] 75871- 1552 September, [facility] [id number] [place] [address] 46212- 4637 September, [facility] [id number] [place] [address] 28552- 8056 September, Essential hypertension I10 [facility] [id number] [place] [address] 39158- 2250 September, [facility] [id number] [place] [address] 10499- 9858 September, RLQ abdominal pain R10.31 ; Low back pain M54.5 and Other chronic pain G89.29 [facility] [id number] [place] [address] 51016- 9330 Aug, Medicare welcome exam Z00.00 [facility] [id number] [place] [address] 86403- 6719 Aug, [facility] [id number] [place] [address] 89035- 3977 Aug, Acute pyelonephritis N10 and Medicare welcome exam Z00.00 [facility] [id number] [place] [address] 48734 -7099 Aug, Dysuria R30.0 and Acute pyelonephritis N10 [facility] [id number] [place] [address] 85719- 3748 Aug, [facility] [id number] [place] [address] 71192- 9647 Aug, [facility] [id number] [place] [address] 18339- 9022 Aug, [facility] [id number] [place] [address] 97607- 0071 Aug, [facility] [id number] [place] [address] 95071- 3918 Jul, [facility] [id number] [place] [address] 47910- 9890 Jul, Renal calculus, right N20.0 and Medicare welcome exam Z00.00 [facility] [id number] [place] [address] 64969 -2705 Jul, Dysuria R30.0 and Renal calculus, right N20.0 [facility] [address] [address] 0732 Jul, Medicare welcome exam Z00.00 [facility] [id number] [place] [address] 56763- 4085 Jun, Gastroesophageal reflux disease without esophagitis K21.9 and Generalized abdominal pain R10.84 [facility] [address] [address] 8085 Jun, Medicare welcome exam Z00.00 [facility] [id number] [place] [address] 61105- 6942 05 Jun, 2017 [facility] [address] 61762- 7916 05 Jun, 2017 Medicare welcome exam Z00.00 and Encounter for screening mammogram for malignant neoplasm of breast Z12.31 [facility] [address] 50115- 9342 02 Jun, 2017 Chronic pain G89.29 [facility] [id number] [place] [address] 46096- 3960 May, [facility] [address] 16936- 7160 May, Pelvic pain R10.2 [facility] [address] 07294- 2552 May, Pelvic pain R10.2 [facility] [id number] [place] [address] 27260 -0119 May, Renal calculus, right N20.0 [facility] [address] 71975- 5597 May, Hematuria, unspecified type R31.9 and Nephrolithiasis N20.0 [facility] [id number] [place] [address] 80457 -1894 May, Dysuria R30.0 and Nephrolithiasis N20.0 [facility] [id number] [place] [address] 70633- 6455 May, [facility] [address] 92381 -8164 May, Abdominal pain R10.9 and Kidney stone N20.0 [facility] [id number] [place] [address] 73300- 5757 May, [facility] [address] 19454- 8617 May, Chronic pain G89.29 and Panic attacks F41.0 [facility] [address] [address] 5698 May, Urinary tract infection without hematuria, site unspecified N39.0 [facility] [address] [address] 6415 Apr, Right lower quadrant abdominal pain R10.31 and Abnormal serum lipase level R74.8 [facility] [address] [address]- 1125 Apr, Recurrent urinary tract infection N39.0 [facility] [id number] [place] [address] 13033- 9729 Apr, UTI symptoms R39.9 ; Recurrent urinary tract infection N39.0 and Pelvic pain R10.2 [facility] [id number] [place] [address] 47520- 9887 Apr, Chronic pain G89.29 and Panic attacks F41.0 [facility] [address] [address]- 7421 Apr, Dysuria R30.0 [facility] [address] [address]- 2580 Apr, [facility] [address] [address]- 0735 Apr, Dysuria R30.0 and Urinary tract infection without hematuria , site unspecified N39.0 [facility] [address] [address]- 5538 Mar, UTI symptoms R39.9 [facility] [id number] [place] [address] 51087- 6379 Mar, [facility] [id number] [address]- 2628 Mar, Panic attacks F41.0 and Chronic pain G89.29 [facility] [id number] [place] [address] 56535- 5474 Mar, [facility] [address] 13887- 1603 Mar, Dysuria R30.0 [facility] [id number] [place] [address] 03228- 3337 Mar, Dysuria R30.0 [facility] [address] 78228- 3152 Feb, Chronic pain G89.29 ; Shortness of breath R06.02 ; Weight loss R63.4 ; Encounter for immunization Z23 ; Bone pain M89.8X9 ; Right anterior knee pain M25.561 and Cough R05 [facility] [id number] [place] [address] 06812- 4459 Feb, Shortness of breath R06.02 [facility] [id number] [place] [address] 58326- 8803 Feb, [facility] [id number] [place] [address] 75336- 8864 Feb, Panic attacks F41.0 and Chronic pain G89.29 [facility] [id number] [place] [address] 73406- 6918 Feb, [facility] [id number] [place] [address] 30856- 0024 Feb, Panic attacks F41.0 ; Shortness of breath R06.02 and Encounter for immunization Z23 [facility] [id number] [place] [address] 78106- 5136 Jan, [facility] [address] 08486- 8100 15 Jan, 2017 Anxiety F41.9 and Chronic pain G89.29 [facility] [id number] [place] [address] 99932- 8530 Dec, Anxiety F41.9 and Chronic pain G89.29 [facility] [id number] [place] [address] 49661- 9245 Nov, Chronic pain G89.29 [facility] [address] 40849- 5432 Nov, Anxiety F41.9 [facility] [address] 55467- 7355 Nov, Chronic pain G89.29 ; Essential hypertension I10 and Other emphysema J43.8 [facility] [address] 89610- 1500 Oct, Anxiety F41.9 [facility] [address] 88326- 9977 Oct, [facility] [address] 11208- 0435 Oct, Chronic pain G89.29 [facility] [id number] [place] [address] 44054- 0729 September, Recurrent UTI N39.0 ; Neuropathy G62.9 and Anxiety F41.9 [facility] [id number] [place] [address] 62857- 1488 September, [facility] [id number] [place] [address] 43652- 9707 September, Chronic pain G89.29 [facility] [id number] [place] [address] 65306- 6246 September, [facility] [id number] [place] [address] 68884- 6306 Aug, Post-traumatic stress disorder, chronic F43.12 ; Chronic urinary tract infection N39.0 ; Gastroesophageal reflux disease without esophagitis K21.9 ; Chronic pain G89.29 ; Essential hypertension I10 and Tobacco abuse Z72.0 [facility] [id number] [place] [address] 32923 -9732 Aug, [facility] [address], [place] [address]- 0457 Aug, Chronic pain G89.29 [facility] [address], [place] [address]- 8723 Aug, Insomnia, unspecified type G47.00 [facility] [address] [address]- 2274 Aug, [facility] [address], [place] [address]- 7753 24 Jul, 2016 Chronic pain G89.29 [facility] [address], [place] [address]- 0849 Jul, [facility] [address], [place] [address]- 6859 Jul, [facility] [address] [address]- 8684 Jul, [facility] [address] [address]- 2474 15 Jul, 2016 Recurrent UTI (urinary tract infection) N39.0 [facility] [address], [place] [address]- 2585 Jul, [facility] [address] [address]- 0679 Jun, Chronic pain G89.29 [facility] [address] [address]- 2630 17 Jun, 2016 [facility] [address] [address]- 1337 Jun, [facility] [address] [address]- 4335 May, Chronic pain G89.29 [facility] [address] [address]- 6434 May, Weight loss R63.4 and Shortness of breath R06.02 [facility] [id number] [place] [address] 25157- 3203 May, Chronic pain G89.29 ; Weight loss R63.4 and Tobacco abuse Z72.0 [facility] [id number] [place] [address] 11909- 5950 May, [facility] [address] 20101- 0639 May, Hypoxia R09.02 [facility] [id number] [place] [address] 51153- 9715 May, [facility] [id number] [place] [address] 35468- 7265 May, Pulmonary emphysema, unspecified emphysema type J43.9 [facility] [id number] [place] [address] 28234 -5127 May, [facility] [id number] [place] [address] 59452- 2000 May, [facility] [id number] [place] [address] 68939- 3215 May, [facility] [id number] [place] [address] 47091- 0157 May, Chronic pain G89.29 ; Encounter for immunization Z23 ; Right anterior knee pain M25.561 and Cough R05 [facility] [id number] [place] [address] 68544- 7753 Apr, Chronic pain G89.29 [facility] [id number] [place] [address] 72222- 9369 Apr, [facility] [id number] [place] [address] 55166- 0412 Apr, Generalized anxiety disorder F41.1 and Depression, unspecified depression type F32.9 [facility] [id number], [place] [address]- 4288 Apr, Chronic pain G89.29 ; Hypokalemia E87.6 and Insomnia, unspecified type G47.00 [facility] [id number] [place] [address], [place] [address]- 9496 Apr, [facility] [id number] [place] [address] 19911- 7574 Apr, Chronic pain G89.29 [facility] [id number] [place] [address], [place] [address]- 0855 Apr, [facility] [id number] [place] [address] 96928- 7982 Mar, [facility] [id number] [place] [address] 67755- 3853 Mar, Insomnia, unspecified type G47.00 [facility] [id number] [place] [address] 99200- 6100 Mar, Chronic pain G89.29 [facility] [id number], [place] [address]- 7950 Mar, [facility] [id number] [place] [address] 34889- 8613 Feb, [facility] [address], [place] [address]- 5351 Feb, [facility] [address], [place] [address]- 5044 Feb, [facility] [id number], [place] [address]- 0870 Feb, [facility] [id number] [place] [address] 68496- 4448 Feb, [facility] [id number], [place] [address]- 9468 Jan, [facility] [id number] [place] [address] 49698- 6540 26 Jan, 2016 [facility] [id number] [place] [address] 03850- 7819 20 Jan, 2016 [facility] [id number] [place] [address] 56207- 5472 13 Jan, 2016 [facility] [id number] [place] [address] 68539- 2972 12 Jan, 2016 [facility] [id number] [place] [address] 60420- 7074 07 Jan, 2016 Chronic pain G89.29 [facility] [id number] [place] [address] 30856- 7037 Jan, Chronic pain G89.29 and Fibromyalgia M79.7 [facility] [id number] [place] [address] 42799- 5477 Dec, Depression, unspecified depression type F32.9 and Generalized anxiety disorder 300.02 [facility] [id number] [place] [address] 45398- 2611 Dec, Dysthymia F34.1 ; Insomnia, unspecified type G47.00 and Chronic pain G89.29 [facility] [id number] [place] [address] 85017- 5003 Dec, Chronic pain G89.29 [facility] [id number] [place] [address] 21387- 5333 Dec, Insomnia, unspecified type G47.00 [facility] [id number] [place] [address] 76742- 9951 Dec, Fibromyalgia M79.7 and Chronic pain G89.29 [facility] [id number] [place] [address] 45339- 5278 Dec, [facility] [id number] [place] [address] 29038- 5502 Dec, [facility] [id number] [address]- 7232 Dec, [facility] [id number] [place] [address] 13822- 8835 Dec, [facility] [id number] [place] [address] 86212- 5498 Dec, Chronic pain G89.29 [facility] [id number] [place] [address] 28982- 4748 Dec, [facility] [id number] [place] [address] 90990- 8497 Dec, [facility] [id number] [place] [address] 68227- 5815 Dec, [facility] [id number] [place] [address] 65796- 2458 Dec, Chronic pain G89.29 and Dysthymia F34.1 [facility] [id number] [place] [address] 08814- 5691 Nov, [facility] [id number] [place] [address] 29438- 9975 Nov, Hypokalemia E87.6 and Chronic pain G89.29 [facility] [id number] [place] [address] 42539- 7754 Nov, Back pain M54.9 and Pain in right knee M25.561 [facility] [id number] [place] [address] 67163- 3117 Nov, [facility] [id number] [place] [address] 98643- 2591 Nov, Chronic pain G89.29 [facility] [id number] [place] [address] 73185- 0302 Nov, Chronic pain G89.29 ; Weight loss R63.4 ; Bone pain M89.8X9 and Insomnia, unspecified type G47.00 [facility] [id number] [address]- [address] Nov, Chronic pain G89.29 [facility] [address] [facility] [id number] [address]46 Nov, Chronic pain G89.29 [facility] [id number] [address] 30 Oct, 2015 Chronic pain G89.29 [facility] [address] [facility] [id number] [place] [address] 18464- 5415 Oct, UTI symptoms R39.9 [facility] [id number] [place] [address]86 2546 Oct, Chronic pain G89.29 [facility] [id number] [place] [address] 2546 Oct, Chronic pain G89.29 [facility] [id number] [place] [address] 36970 2546 Oct, Chronic pain G89.29 [facility] [id number] [address] Oct, Right upper quadrant abdominal pain R10.11 [facility] [id number] [address] 254 Oct, Chronic pain G89.29 [facility] [id number] [address] 2546 Oct, [facility] [address] [address] 2548 September, Chronic pain G89.29 [facility] [address] [address] 2545 September, Dysuria R30.0 and Urinary tract infection without hematuria , site unspecified N39.0 [facility] [id number] [address] September, [facility] [id number] [place] [address] 34800- 8233 September, Dysuria R30.0 [facility] [id number] [place] [address] 60215- 3444 September, Chronic pain G89.29 [facility] [id number] [place] [address] 85947- 8423 September, Chronic pain G89.29 and Essential hypertension I10 [facility] [id number] [place] [address] 73919- 9199 September, [facility] [id number] [place] [address] 38867- 3497 September, [facility] [id number] [place] [address] 27152- 2014 September, [facility] [id number] [place] [address] 24102- 2713 Aug, UTI symptoms R39.9 [facility] [id number] [place] [address] 46776- 2995 Aug, Dysuria R30.0 [facility] [id number] [place] [address] 26107- 7724 Aug, [facility] [id number] [place] [address] 95636- 8211 Aug, [facility] [id number] [place] [address] 46806- 0294 Aug, [facility] [id number] [place] [address] 97681- 9360 Aug, Chronic pain G89.29 [facility] [id number] [place] [address] 08869- 6803 Aug, Dysthymia F34.1 [facility] [id number] [place] [address] 96218- 5995 Aug, Conjunctivitis, unspecified conjunctivitis type, unspecified laterality H10.9 [facility] [address] [facility] [id number] [place] [address] 31 Jul, 2015 Chronic pain G89.29 ; Back pain M54.9 ; Tobacco abuse Z72.0 and Weight decrease R63.4 [facility] [address] [facility] [id number] [place] [address] 2546 30 Jul, 2015 [facility] [id number] [place], [place] [address], [place] [address] 2546 30 Jul, 2015 [facility] [address] [facility] [id number] [place] [address] 2541 24 Jul, 2015 Chronic pain G89.29 [facility] [address] [id number] [place] [address] 2546 22 Jul, 2015 [facility] [address] [id number] [place] [address] 2546 21 Jul, 2015 [facility] [address] [id number] [address] 2541 18 Jul, 2015 [facility] [address] [id number] [place] [address]- 9601 17 Jul, 2015 [facility] [address]00565[address] [place] [address] 4136 17 Jul, 2015 Chronic pain G89.29 [facility] [address]00565100[facility] [place] [address] 2546 16 Jul, 2015 Chronic pain G89.29 [facility] [address]00565[address] [place] [address] 2540 15 Jul, 2015 [facility] [address] [id number] [place] [address] 2542 10 Jul, 2015 [facility] [address] [id number] [place] [address] 2546 07 Jul, 2015 [facility] [address] [id number] [place] [address] 2546 Jul, [facility] [id number] [place] [address] 74743- 6215 Jun, [facility] [address] [address]- [address]99 Jun, Depression, unspecified depression type F32.9 [place] [id number] [place] [address] 30713- 0638 Jun, Pain in right knee M25.561 [place] [address] 6[address]- 1271 Jun, Chronic pain G89.29 ; Back pain M54.9 ; Bone pain M89.8X9 and Weight loss R63.4 [place] [address] 68390- 6660 Jun, [place] [address] 68662- 1506 May, [place] [address] 45537- 5776 May, UTI symptoms R39.9 ; Pain in right knee M25.561 ; Right low back pain, with sciatica presence unspecified M54.5 ; Right foot pain M79.671 ; Hypokalemia E87.6 and Screening, lipid Z13.220 [place] [id number] [place] [address] 28695- 1658 May, [place] [id number] [place] [address] 65802- 8782 May, [place] [id number] [place] [address] 95751- 4749 Mar, [place] [address] 59862- 9085 Mar, [place] [id number] [place] [address] 53038- 9076 Mar, Hypokalemia E87.6 [place] [address] [id number] [address]- 4292 Mar, Pain in right leg M79.604 ; Encounter for immunization Z23 ; Pain in right knee M25.561 and Hypokalemia E87.6 [facility] [address] [id number] [address] 1706 Jan, [facility] [id number] [place] [address] 82434 2546 Jan, [facility] [id number] [place] [address] 38165 2541 Jan, Abdominal pain, generalized 789.07 [facility] [id number] [place] [address] 34205- 7178 Jan, Abdominal pain, generalized 789.07 [facility] [id number] [place] [address] 52691- 7006 Dec, [facility] [id number] [place] [address] 34492- 4244 Dec, [facility] [id number] [place] [address] 41690- 2497 Dec, [facility] [id number] [place] [address] 68535- 9080 Nov, Hallux valgus 735.0 and Hammertoe 735.4 [facility] [address]005[address] [address]- 9958 Nov, [facility] [address]00565[address] [address] 2543 Nov, Hallux valgus 735.0 and Hammer toe 735.4 [facility] [address]005[address] [address]- 2545 Oct, [facility] [address]00565[address] [address]- 9417 Oct, [facility] [address]005[address] [address]- 0196 Oct, Pre-op evaluation V72.84 [facility] [id number] [place] [address] 18761- 7857 Oct, [facility] [address]005[address] [address]- 5806 Oct, [facility] [id number] [place] [address] 59063- 9657 September, [facility] [id number] [place] [address] 89898- 9290 September, [facility] [id number] [place] [address] 96712- 0067 September, Hallux valgus (acquired) 735.0 and Other hammer toe ( acquired) 735.4 [facility] [id number] [place] [address] 86345- 4269 Aug, [facility] [address]005[address] [address]- 5562 Aug, [facility] [id number] [place] [address] 80204- 4718 Jul, [facility] [address] [address]- 1003 Jul, [facility] [address]005[address] [address]- 5536 Jul, [facility] [address], [place] [address]- 8520 Jul, [facility] [id number] [place] [address] 86531- 8840 Jul, [facility] [address] [address]- 2546 Jul, [facility] [address] [address]- 2795 Jul, [facility] [place] [facility] [address] [id number] [place] [address]- 5221 Jul, [facility] [place] [facility] [address] [id number] [place] [address]- 8516 Jun, [facility] [place] [facility] [address] [id number] [place] [address]- 0233 Jun, [facility] [place] [facility] [address] [id number] [place] [address]- 5161 Jun, [facility] [place] [facility] [address] [id number] [place] [address]- 2053 Jun, [facility] [place] [facility] [address] [id number] [place] [address]- 9655 Jun, [facility] [place] [facility] [address] [id number] [place] [address]- 6509 Jun, [facility] [place] [facility] [address] [id number] [place] [address]- 8863 Jun, [facility] [place] [facility] [address] [id number] [place] [address]- 1407 Jun, [facility] [place] [facility] [address] [facility] [id number] [place] [address]- 6324 Jun, [facility] [place] [facility] [address] [id number] [place] [address]- 4406 Jun, [facility] [place] [facility] [address] [id number] [place] [address]- 0878 May, [facility] [place] [facility] [address] [id number] [place] [address]- 1593 May, [facility] [place] [facility] [address] [facility] [id number] [place] [address]- 3678 May, [facility] [place] [facility] [address] [facility] [id number] [place] [address]- 7722 May, [facility] [place] [facility] [address] [id number] [place] [address]- 3703 May, [facility] [address] [id number] [place] [address]- 2264 May, [facility] [address] [id number] [place] [address]- 4994 May, [facility] [address] [id number] [place] [address]- 7526 May, [facility] [address] [id number] [place] [address]- 4687 May, [facility] [address] [id number] [place] [address]- 2506 May, [facility] [address] [id number] [place] [address]- 7731 May, [facility] [address] [id number] [place] [address]- 0113 May, [facility] [address] [id number] [place] [address]- 9958 May, [facility] [address] [id number] [place] [address]- 9115 May, [facility] [address] [id number] [place] [address]- 6593 May, [facility] [address] [id number] [place] [address]- 9896 May, [facility] [address] [id number] [place] [address]- 7012 May, [facility] [place] [facility] [address] [id number] [place] [address]- 4235 May, [facility] [address] [id number] [place] [address]- 5077 Apr, [facility] [address] [id number] [place] [address]- 2981 Apr, [facility] [place] [facility] [address] [id number] [place] 5832 Apr, [facility] [place] [facility] [address] [id number] [place] 8563 Apr, [facility] [place] [facility] [address] [id number] [place] 7141 Apr, [facility] [place] [facility] [address] [id number] [place] [address]- 5060 Apr, [facility] [place] [facility] [address] [id number] [place] 9035 Apr, [facility] [place] [facility] [address] [id number] [place] [address]- 4515 Apr, [facility] [place] [facility] [address] [id number] [place] [address]- 8733 Apr, [facility] [place] [facility] [address] [id number] [place] [address]- 2749 Mar, [facility] [place] [facility] [address] [id number] [place] [address]- 2166 Mar, [facility] [place] [facility] [address] [id number] [place] [address]- 2799 Mar, [facility] [place] [facility] [address] [id number] [place] [address]- 9706 Mar, [facility] [place] [facility] [address] [id number] [address]- 4308 Mar, [facility] [place] [facility] [address] [id number] [place] [address]- 5686 Feb, [facility] [place] [facility] [address] [id number] [place] [address]- 2026 Feb, [facility] [place] [facility] [address] [id number] [place] 0261 Feb, [facility] [place] [facility] [address] [id number] [address]- 6774 Feb, 2013 [facility] [place] [facility] [address] [id number] [place] [address]- 2853 16 Feb, 2013 [facility] [place] [facility] [address] [id number] [place] [address]- 4686 16 Feb, 2013 [facility] [place] [facility] [address] [id number] [place] [address]- 4176 Feb, 2013 [facility] [place] [facility] [address] [id number] [place] [address]- 7778 Feb, 2013 [facility] [place] [facility] [address] [id number] [place] [address]- 5261 Feb, 2013 [facility] [place] [facility] [address] [id number] [place] [address]- 6443 Feb, 2013 [facility] [place] [facility] [address] [id number] [place] [address]- 7197 Feb, 2013 [facility] [place] [facility] [address] [id number] [address]- 8944 Feb, 2013 [facility] [place] [facility] [address] [id number] [place] [address]- 4086 Feb, 2013 [facility] [place] [facility] [address] [id number], [place] [address]- 6340 Feb, 2013 [facility] [place] [facility] [address] [id number], [place] [address]- 2098 Feb, 2013 [facility] [place] [facility] [address] [id number], [place] [address]- 6843 Feb, 2013 [facility] [place] [facility] [address] [id number], [place] [address]- 5341 Jan, 2013 [facility] [place] [facility] [address] [id number], [place] [address]- 0498 23 Jan, 2013 [facility] [place] [facility] [address] [id number], [place] [address]- 7280 20 Jan, 2013 [facility] [place] [facility] [address] [id number] [place] [address]- 6129 19 Jan, 2013 [facility] [place] [facility] [address] [id number] [place] [address]- 3366 Jan, 2013 [facility] [place] [facility] [address] [id number] [place] [address]- 1156 Jan, 2013 [facility] [place] [facility] [address] [id number] [place] [address]- 6436 Jan, [facility] [place] [facility] [address] [id number] [place] [address]- 4764 Jan, [facility] [place] [facility] [address] [id number] [place] [address]- 8387 Dec, [facility] [place] [facility] [address] [id number] [place] [address]- 8916 Dec, [facility] [place] [facility] [address] [id number] [place] [address]- 9100 Nov, [facility] [place] [facility] [address] [id number] [place] [address]- 9413 Nov, [facility] [place] [facility] [address] [id number] [place] [address]- 5549 Nov, [facility] [place] [facility] [address] [id number] [place] [address]- 6641 Nov, [facility] [place] [facility] [address] [id number] [place] [address]- 8363 Nov, [facility] [place] [facility] [address] [id number] [place] [address]- 5402 Nov, [facility] [place] [facility] [address] [id number] [place] [address]- 3876 Nov, [facility] [place] [facility] [address] [id number] [place] [address]- 3268 Nov, [facility] [place] [facility] [address] [id number] [place] [address]- 9883 Nov, [facility] [place] [facility] [address] [id number] [place] 5134 Oct, [facility] [place] [facility] [address] [id number] [place] [address]- 7535 Oct, [facility] [place] [facility] [address] [id number] [place] [address]- 4328 Oct, [facility] [place] [facility] [address] [id number] [place] [address]- 5597 Oct, [facility] [place] [facility] [address] [id number] [place] [address]- 2180 Oct, [facility] [place] [facility] [address] [id number] [place] [address]- 9511 Oct, [facility] [place] [facility] [address] [id number] [place] [address]- 9140 September, [facility] [place] [facility] [address] [id number] [place] [address]- 7177 September, [facility] [place] [facility] [address] [id number] [place] [address]- 2923 September, [facility] [place] [facility] [address] [id number] [place] [address]- 0834 September, [facility] [place] [facility] [address] [id number] [place] [address]- 6311 September, [facility] [place] [facility] [address] [id number] [place] [address]- 2214 September, [facility] [place] [facility] [address] [id number] [place] [address]- 3517 September, [facility] [place] [facility] [address] [id number] [place] [address]- 2069 September, [facility] [place] [facility] [address] [id number] [place] [address]- 2099 September, [facility] [place] [facility] [address] [id number] [place] [address]- 2125 September, [facility] [address] [id number] [place] [address]- 8375 September, [facility] [place] [facility] [address] [id number] [place] [address]- 9778 September, [facility] [address] [id number] [place] [address]- 3891 September, [facility] [place] [facility] [address] [id number] [place] [address]- 7941 September, [facility] [place] [facility] [address] [id number] [place] [address]- 8971 September, [facility] [place] [facility] [address] [id number] [place] [address]- 3461 September, [facility] [address] [id number] [place] [address]- 9196 September, [facility] [address] [id number] [place] [address]- 3443 September, [facility] [place] [facility] [address] [id number] [place] [address]- 9437 September, [facility] [address] [id number] [place] [address]- 7468 September, [facility] [place] [facility] [address] [id number] [place] [address]- 0159 Aug, [facility] [place] [facility] [address] [id number] [place] [address]- 8950 Aug, [facility] [place] [facility] [address] [id number] [place] [address]- 0729 Aug, [facility] [place] [facility] [address] [id number] [place] [address]- 6993 Aug, [facility] [place] [facility] [address] [id number] [place] [address]- 8174 Aug, [facility] [place] [facility] [address] [id number] [place] [address]- 3578 18 Aug, 2013 [facility] [place] [facility] [address] [id number] [place] [address]- 7942 16 Aug, 2013 [facility] [place] [facility] [address] [id number] [place] [address]- 1110 16 Aug, 2013 [facility] [place] [facility] [address] [id number] [place] [address]- 2415 15 Aug, 2013 [facility] [place] [facility] [address] [id number] [place] [address]- 1643 15 Aug, 2013 [facility] [place] [facility] [address] [id number] [place] [address]- 6461 14 Aug, 2013 [facility] [place] [facility] [address] [id number] [place] [address]- 2730 Aug, [facility] [place] [facility] [address] [id number] [place] [address]- 1321 Aug, [facility] [place] [facility] [address] [id number] [place] [address]- 3041 Aug, [facility] [place] [facility] [address] [id number] [place] [address]- 6964 Aug, [facility] [place] [facility] [address] [id number] [place] [address]- 4009 Jul, [facility] [place] [facility] [address] [id number] [place] [address]- 8919 31 Jul, 2013 [facility] [place] [facility] [address] [id number] [place] [address]- 7002 Jul, [facility] [place] [facility] [address] [id number] [place] [address]- 6766 27 Jul, 2013 [facility] [place] [facility] [address] [id number] [place] [address]- 2189 20 Jul, 2013 [facility] [place] [facility] [address] [id number] [address]- 3853 Jul, [facility] [place] [facility] [address] [id number] [place] [address]- 8726 Jul, [facility] [place] [facility] [address] [id number] [place] [address] Jul, [facility] [place] [facility] [address] [id number] [place] [address] Jul, [facility] [place] [facility] [address] [id number] [place] [address] Jul, [facility] [place] [facility] [address] [id number] [place] [address] Jul, [facility] [place] [facility] [address] [id number] [place] [address] Jul, [facility] [place] [facility] [address] [facility] [id number] [place] [address] Jul, [facility] [place] [facility] [address] [id number] [place] [address] Jul, [facility] [place] [facility] [address] [id number] [place] [address] Jul, [facility] [place] [facility] [address] [facility] [id number] [place] [address] Jun, [facility] [place] [facility] [address] [id number] [place] [address] Jun, [facility] [place] [facility] [address] [id number], [place] [address] Jun, [facility] [place] [facility] [address] [id number] [place] [address]- [address] Jun, [facility] [place] [facility] [address] [id number] [place] [address] Jun, [facility] [place] [facility] [address] [facility] [id number], [place] [address] Jun, [facility] [place] [facility] [address] [id number] [place] [address] May, [facility] [place] [facility] [address] [id number] [place] [address]- [address] May, [facility] [place] [facility] [address] [id number] [place] [address]- [address] May, [facility] [place] [facility] [address] [id number] [place] [address]- [address] May, [facility] [place] [facility] [address] [id number] [place] [address]- [address] May, [facility] [place] [facility] [address] [id number] [place] [address]- [address] May, [facility] [place] [facility] [address] [id number] [place] [address] May, [facility] [place] [facility] [address] [id number] [place] [address]- [address] May, [facility] [place] [facility] [address] [id number] [place] [address]- [address] May, [facility] [place] [facility] [address] [id number] [place] [address]- [address] May, [facility] [place] [facility] [address] [id number] [place] [address]- [address]31 May, [facility] [place] [facility] [address] [id number] [place] [address]- [address] May, [facility] [place] [facility] [address] [id number] [place] [address] May, [facility] [place] [facility] [address] [id number] [place] [address]- [address] May, [facility] [place] [facility] [address] [id number] [place] [address]- [address]65 May, [facility] [place] [facility] [address] [id number], [place] [address] Apr, [facility] [place] [facility] [address] [id number] [place] [address]- [address] Apr, [facility] [place] [facility] [address] [id number] [place] [address]- [address]32 Apr, [facility] [place] [facility] [address] [id number] [place] [address]- [address] Apr, [facility] [place] [facility] [address] [id number] [place] [address] Apr, [facility] [place] [facility] [address] [id number] [place] [address]- [address]65 Apr, [facility] [place] [facility] [address] [id number] [place] [address]- [address] Apr, [facility] [place] [facility] [address] [id number] [place] [address]- [address] Apr, [facility] [place] [facility] [address] [id number] [place] [address]- [address] Apr, [facility] [place] [facility] [address] [id number] [place] [address]- [address] Apr, [facility] [place] [facility] [address] [id number] [place] [address]- [address] Mar, [facility] [place] [facility] [address] [id number], [place] [address] Mar, [facility] [place] [facility] [address] [id number], [place] [address] Mar, [facility] [place] [facility] [address] [id number] [place] [address]- [address] Mar, [facility] [place] [facility] [address] [id number] [place] [address]- 77[address] Mar, [facility] [place] [facility] [address] [id number], [place] [address] Mar, [facility] [place] [facility] [address] [id number] [place] [address]- [address] Mar, [facility] [address] [id number] [place] [address]- [address] Mar, [facility] [address] [id number] [place] [address]- [address] Mar, [facility] [address] [id number] [place] [address]- 5708 Mar, [facility] [address] [id number] [place] [address]- [address] Mar, [facility] [address] [id number] [place] [address]- [address] Mar, [facility] [address] [id number] [place] [address]- [address]36 Mar, [facility] [address] [id number] [place] [address]- [address] Mar, [facility] [address] [id number] [place] [address]- [address] Mar, [facility] [address] [id number] [place] [address]- [address] Mar, [facility] [address] [id number] [place] [address]- [address] Mar, [facility] [address] [id number] [place] [address]- [address] 14 Mar, 2013 [facility] [address] [id number] [place] [address]- [address] Mar, [facility] [place] [facility] [address] [id number] [place] [address] Mar, [facility] [place] [facility] [address] [id number] [place] [address] Mar, [facility] [address] [id number] [place] [address] 46[address] Mar, [facility] [place] [facility] [address] [id number] [place] [address] 8420 Mar, [facility] [place] [facility] [address] [id number] [place] [address] 8607 Feb, [facility] [place] [facility] [address] [id number] [place] [address] 1496 Feb, [facility] [place] [facility] [address] [id number] [place] [address] 6936 Feb, [facility] [place] [facility] [address] [id number] [place] [address] 5360 Feb, [facility] [place] [facility] [address] [id number] [place] [address] 5[address] 15 Feb, 2013 [facility] [place] [facility] [address] [id number] [place] [address]- 6028 Feb, [facility] [place] [facility] [address] [id number], [place] [address] Feb, [facility] [place] [facility] [address] [id number] [place] [address]- 6289 Feb, [facility] [place] [facility] [address] [id number], [place] [address] 8734 Feb, [facility] [place] [facility] [address] [id number], [place] [address] 4269 Feb, [facility] [place] [facility] [address] [id number], [place] [address] 8[address] 30 Jan, 2013 [facility] [place] [facility] [address] [id number] [place] [address]- 7216 26 Jan, 2012 [facility] [place] [facility] [address] [id number], [place] [address] 4[address] 24 Jan, 2013 [facility] [place] [facility] [address] [id number], [place] [address] 7[address] 23 Jan, 2012 [facility] [place] [facility] [address] [id number], [place] [address] Jan, [facility] [address] [id number] [place] [address] 5411 Dec, [facility] [place] [facility] [address] [id number] [place] [address]- 7895 Dec, [facility] [place] [facility] [address] [id number] [place] [address]- 7459 Dec, [facility] [place] [facility] [address] [id number] [place] [address]- 3659 Dec, [facility] [place] [facility] [address] [id number] [place] [address]- 5409 Dec, [facility] [place] [facility] [address] [id number] [place] [address]- 9575 Dec, [facility] [place] [facility] [address] [id number] [place] [address]- 6393 Dec, [facility] [place] [facility] [address] [id number] [place] [address]- 4252 Nov, [facility] [place] [facility] [address] [id number] [place] [address]- 0143 Nov, [facility] [place] [facility] [address] [id number] [place] [address]- 8267 Nov, [facility] [place] [facility] [address] [id number] [place] [address]- 0721 Nov, [facility] [place] [facility] [address] [id number] [place] [address]- 3930 Nov, [facility] [place] [facility] [address] [id number] [place] [address]- 9723 Oct, [facility] [place] [facility] [address] [id number] [place] [address]- 9490 Oct, [facility] [place] [facility] [address] [id number] [place] [address] 5695 Oct, [facility] [place] [facility] [address] [id number] [place] [address]- 2075 September, [facility] [address] [id number] [place] [address]- 5048 September, [facility] [address] [id number] [place] [address] 2416 September, [facility] [address] [id number] [place] [address]- 5596 September, [facility] [address] [id number] [place] [address]- 9409 September, [facility] [address] [id number] [place] [address]- 2059 September, [facility] [address] [id number] [place] [address]- 4216 September, [facility] [address] [id number] [place] [address]- 6807 30 Aug, 2012 [facility] [address] [id number] [place] [address]- 1711 Aug, [facility] [address] [id number] [place] [address]- 8391 Aug, [facility] [address] [id number] [place] [address]- 2947 29 Jul, 2012 [facility] [address] [id number] [place] [address]- 7565 27 Jul, 2012 [facility] [address] [id number] [place] [address]- 7977 Jul, [facility] [place] [facility] [address] [id number] [place] [address]- 6345 20 Jul, 2012 [facility] [place] [facility] [address] [id number] [place] [address]- 6576 18 Jul, 2012 [facility] [place] [facility] [address] [id number] [place] [address]- 9534 Jul, [facility] [address] [id number] [place] [address]- 3065 Jul, [facility] [address] [id number] [place] [address]- 5906 Jun, [facility] [address] [facility] [id number] [place] [address]- 0246 Jun, [facility] [place] [facility] [address] [id number] [place] [address]- 8831 Jun, [facility] [address] [id number] [place] [address]- 4155 Jun, [facility] [address] [facility] [id number] [place] [address]- 3429 Jun, [facility] [address] [facility] [id number] [place] [address]- 8631 Jun, [facility] [place] [facility] [address] [id number] [place] [address]- 6085 Jun, [facility] [address] [facility] [id number] [place] [address]- 1237 Jun, [facility] [place] [facility] [address] [facility] [id number] [place] [address]- 6163 Jun, [facility] [place] [facility] [address] [facility] [id number] [place] [address]- 2860 Jun, [facility] [place] [facility] [address] [facility] [id number] [place] [address]- 0762 May, [facility] [place] [facility] [address] [id number] [place] [address]- 9525 May, [facility] [place] [facility] [address] [facility] [id number] [place] [address]- 3675 May, [facility] [place] [facility] [address] [facility] [id number] [place] [address]- 7237 May, [facility] [place] [facility] [address] [id number] [place] [address]- 2748 15 May, 2012 [facility] [place] [facility] [address] [id number] [place] [address]- 7966 07 May, 2012 [facility] [place] [facility] [address] [id number] [place] [address]- 3606 31 Apr, 2012 [facility] [place] [facility] [address] [id number] [place] [address]- 7986 31 Apr, 2012 [facility] [place] [facility] [address] [id number] [place] [address]- 3293 Apr, [facility] [place] [facility] [address] [id number] [place] [address]- 8649 Apr, [facility] [place] [facility] [address] [id number] [place] [address]- 5085 Apr, [facility] [place] [facility] [address] [id number] [place] [address]- 1081 Apr, [facility] [place] [facility] [address] [id number] [place] [address]- 0697 Apr, [facility] [place] [facility] [address] [id number] [place] [address]- 9337 29 Mar, 2012 [facility] [place] [facility] [address] [id number] [place] [address]- 3997 29 Mar, 2012 [facility] [place] [facility] [address] [id number] [place] [address]- 6230 27 Mar, 2012 [facility] [place] [facility] [address] [id number] [place] [address] 2542 Mar, [facility] [place] [facility] [address] [id number] [place] [address] 2546 Mar, [facility] [place] [facility] [address] [id number] [place] [address]- 2544 18 Mar, 2012 [facility] [place] [facility] [address] [id number] [place] [address]- 3709 Mar, [facility] [place] [facility] [address] [id number] [place] [address]- 4993 Mar, [facility] [place] [facility] [address] [id number] [place] [address]- 1226 Mar, [facility] [place] [facility] [address] [facility] [id number] [place] [address]- 5701 Mar, [facility] [place] [facility] [address] [id number] [place] [address]- 0575 Mar, [facility] [place] [facility] [address] [id number] [place] [address]- 5993 Mar, [facility] [place] [facility] [address] [id number] [address]- 0690 Mar, [facility] [place] [facility] [address] [facility] [id number], [place] [address]- 8820 Mar, [facility] [place] [facility] [address] [id number], [place] [address]- 9604 Mar, [facility] [place] [facility] [address] [id number], [place] [address]- 2802 Mar, [facility] [place] [facility] [address] [facility] [id number], [place] [address]- 0225 Mar, [facility] [place] [facility] [address] [id number], [place] [address]- 5190 Feb, [facility] [place] [facility] [address] [id number], [place] [address]- 8205 Feb, [facility] [place] [facility] [address] [id number], [place] [address]- 2585 Feb, [facility] [place] [facility] [address] [facility] [id number], [place] [address]- 7530 Feb, [facility] [place] [facility] [address] [facility] [id number], [place] [address]- 3737 Feb, [facility] [place] [facility] [address] [id number] [place] [address]- 4531 16 Feb, 2012 [facility] [place] [facility] [address] [id number] [place] [address]- 9786 Feb, [facility] [place] [facility] [address] [id number] [place] [address]- 4806 11 Feb, 2012 [facility] [place] [facility] [address] [id number] [place] [address]- 6504 05 Feb, 2012 [facility] [place] [facility] [address] [id number] [place] [address]- 6800 04 Feb, 2012 [facility] [place] [facility] [address] [id number] [place] [address]- 4698 02 Feb, 2012 [facility] [place] [facility] [address] [id number] [place] [address]- 2050 27 Jan, 2012 [facility] [place] [facility] [address] [id number] [place] [address]- 5649 25 Jan, 2012 [facility] [place] [facility] [address] [id number] [place] [address]- 0540 13 Jan, 2012 [facility] [place] [facility] [address] [id number] [place] [address]- 7701 12 Jan, 2012 [facility] [place] [facility] [address] [id number] [place] [address]- 0180 07 Jan, 2012 [facility] [place] [facility] [address] [id number] [place] [address]- 6208 31 Dec, 2011 [facility] [place] [facility] [address] [id number] [place] [address]- 1099 24 Dec, 2011 [facility] [place] [facility] [address] [id number] [place] [address]- 6329 Dec, [facility] [place] [facility] [address] [id number] [place] [address]- 5660 18 Dec, 2011 [facility] [place] [facility] [address] [id number] [place] [address]- 3277 Dec, [facility] [place] [facility] [address] [id number] [place] [address]- 8822 Dec, [facility] [place] [facility] [address] [id number] [place] [address]- 3389 Dec, [facility] [place] [facility] [address] [id number] [place] [address]- 2546 Dec, [facility] [place] [facility] [address] [id number] [place] [address]- 6248 Nov, [facility] [address] [id number] [place] [address]- 9010 Nov, [facility] [place] [facility] [address] [id number] [place] [address]- 7155 Nov, [facility] [address] [id number] [place] [address]- 1731 Nov, [facility] [address] [id number] [place] [address]- 7722 Nov, [facility] [address] [id number] [place] [address]- 8725 Oct, [facility] [place] [facility] [address] [id number] [place] [address]- 3862 Oct, [facility] [place] [facility] [address] [id number] [place] [address]- 0556 September, [facility] [place] [facility] [address] [id number] [place] [address]- 3791 September, [facility] [place] [facility] [address] [id number] [place] [address]- 3103 September, [facility] [place] [facility] [address] [id number] [place] [address]- 5396 September, [facility] [place] [facility] [address] [id number] [place] [address]- 2546 September, [facility] [place] [facility] [address] [id number] [place] [address]- 0128 September, [facility] [address] [id number] [place] [address]- 3583 September, [facility] [place] [facility] [address] [id number] [place] [address]- 9000 September, [facility] [address] [id number] [place] [address]- 3488 September, [facility] [place] [facility] [address] [id number] [place] [address]- 0912 September, [facility] [address] [id number] [place] [address]- 5216 September, [facility] [place] [facility] [address] [id number] [place] [address]- 7349 September, [facility] [address] [id number] [place] [address]- 8267 September, [facility] [place] [facility] [address] [id number] [place] [address]- 8582 September, [facility] [address] [id number] [place] [address]- 0577 24 Aug, 2011 [facility] [place] [facility] [address] [id number] [place] [address]- 6144 Aug, [facility] [place] [facility] [address] [id number] [place] [address]- 9959 Aug, [facility] [place] [facility] [address] [id number] [place] [address]- 6439 Aug, [facility] [place] [facility] [address] [id number] [place] [address]- 8081 Jul, [facility] [place] [facility] [address] [id number] [place] [address]- 7034 Jul, [facility] [place] [facility] [address] [id number] [place] [address]- 8299 Jul, [facility] [place] [facility] [address] [id number] [place] [address]- 0715 28 Jun, 2011 [facility] [address] [id number] [place] [id number] 26 Jun, 2011 [facility] [address] [facility] [id number] [place] [address]- 2546 13 Jun, 2011 [facility] [address] [id number] [place] [address]- 8146 10 Jun, 2011 [facility] [address] [id number] [place] [address] 2540 07 Jun, 2011 [facility] [address] [id number] [place] [address]- 9636 07 Jun, 2011 [facility] [address] [id number] [place] [address]- 254 03 Jun, 2011 [facility] [address] [id number] [place] [address]- 4645 02 Jun, 2011 [facility] [address] [id number] [place] [address]- 3679 May, [facility] [address] [id number] [place] [address]- 3676 May, [facility] [address] [id number] [place] [address]- 7149 May, [facility] [address] [id number] [place] [address]- 8229 May, [facility] [address] [id number] [place] [address]- 2540 May, [facility] [place] [facility] [address] [facility] [id number] [place] [address]- 2540 May, [facility] [place] [facility] [address] [facility] [id number] [place] [address]- 2544 May, [facility] [address] [id number] [place] [address]- 5862 May, [facility] [place] [facility] [address] [id number] [place] [address]- 5734 May, [facility] [place] [facility] [address] [id number] [place] [address]- 6949 May, [facility] [place] [facility] [address] [id number] [place] [address]- 9391 17 May, 2011 [facility] [place] [facility] [address] [id number] [place] [address]- 8137 13 May, 2011 [facility] [place] [facility] [address] [id number] [place] [address]- 4101 May, [facility] [place] [facility] [address] [id number] [place] [address]- 4179 May, [facility] [place] [facility] [address] [id number] [place] [address]- 4217 Apr, [facility] [place] [facility] [address] [id number] [place] [address]- 8838 Apr, [facility] [place] [facility] [address] [id number] [place] [address]- 5233 Apr, [facility] [place] [facility] [address] [id number], [place] [address]- 4103 Mar, [facility] [place] [facility] [address] [id number], [place] [address]- 2417 Mar, [facility] [place] [facility] [address] [id number], [place] [address]- 8873 Feb, [facility] [place] [facility] [address] [id number] [place] [address]- 7066 Feb, [facility] [place] [facility] [address] [id number], [place] [address]- 4856 Feb, [facility] [place] [facility] [address] [id number], [place] [address]- 8685 Feb, [facility] [place] [facility] [address] [id number] [place] [address]- 4696 13 Feb, 2011 [facility] [place] [facility] [address] [id number] [place] [address]- 2696 28 Apr, 2010 [facility] [place] [facility] [address] [id number] [place] [address] 2546 22 Apr, 2010 [facility] [place] [facility] [address] [id number] [place] [address] 2546 16 Apr, 2010 [facility] [place] [facility] [address] [id number] [place] [address] 2546 15 Apr, 2010 [facility] [place] [facility] [address] [id number] [place] [address] 2546 15 Apr, 2010 [facility] [place] [facility] [address] [id number] [place] [address] 2546 Apr, [facility] [place] [facility] [address] [id number] [place] [address]- 6745 24 Mar, 2010 [facility] [place] [facility] [address] [id number] [place] [address] 254 17 Mar, 2010 [facility] [place] [facility] [address] [id number] [place] [address]- 7426 17 Mar, 2010 [facility] [place] [facility] [address] [id number] [place] [address] 2543 28 Feb, 2010 [facility] [place] [facility] [address] [id number] [place] [address] 22 Feb, 2010 [facility] [place] [facility] [address] [id number] [place] [address] 254 Feb, [facility] [place] [facility] [address] [id number] [place] [address] 15 Feb, 2010 [facility] [place] [facility] [address] [id number] [place] [address] 18 Dec, 2009 [facility] [place] [facility] [address] [id number] [place] [address] Dec, [facility] [address] [facility] [id number] [place] [address] 15 Oct, 2009 [facility] [address] [facility] [id number] [address] Mar, [facility] [address] [facility] [id number] [address] Mar, [facility] [address] [facility] [id number] [address] September, IMMUNIZATIONS No Known Immunizations SOCIAL HISTORY Never Assessed REASON FOR VISIT Requests return call PLAN OF CARE VITAL SIGNS MEDICATIONS Unknown [...]
--- OUTSIDE RECORDS SUMMARY | 2017-11-27 15:22 | XMS REPORT ---
Author Author VALERIE ZAVALA [facility] Address [address] [place] [address] Care Team Providers Care Gas Treater Name Role Phone VALERIE ZAVALA Unavailable PROBLEMS Type Condition ICD9-CM Code [id number] Code Onset Dates Condition Status SNOMED Code Problem Generalized anxiety disorder F41.1 Active 41573508 Problem Hypokalemia E87.6 Active 042941609 Problem Right low back pain, with sciatica presence unspecified M54.5 Active 427352169 Problem Post-traumatic stress disorder, chronic F43.12 Active 09334937 Problem Pain in right knee M25.561 Active 56619078 Problem Gastroesophageal reflux disease without esophagitis K21.9 Active 045455383 Problem UTI symptoms R39.9 Active 77317125 Problem Essential hypertension I10 Active 27030004 Problem Anxiety F41.9 Active 19882518 Problem Neuropathy G62.9 Active 431360534 Problem Other chronic pain G89.29 Active 83639604 Problem Generalized abdominal pain R10.84 Active 305162464 Problem Chronic pain G89.29 Active 60331966 Problem Back pain M54.9 Active 187258782 Problem Right foot pain M79.671 Active 74994389 Problem Panic attacks F41.0 Active 127614426 Problem Other emphysema J43.8 Active 44094191 Problem Kidney stones N20.0 Active 74352497 Problem Renal calculus, right N20.0 Active 49768576 Problem Weight decrease R63.4 Active 799294326 Problem Tobacco abuse Z72.0 Active 38247862 Problem Bone pain M89.8X9 Active 15770581 Problem Depression, unspecified depression type F32.9 Active 08904993 Problem Insomnia, unspecified type G47.00 Active 697756497 Problem Pulmonary emphysema, unspecified emphysema type J43.9 Active 92669737 Problem Right upper quadrant abdominal pain R10.11 Active 847409760 Problem Weight loss R63.4 Active 748956170 ALLERGIES Substance Reaction Event Type Date Status Sulfur rash Drug Allergy May, Active Remeron itching Drug Allergy May, Active Morphine Sulfate nausea Drug Allergy May, Active Fentanyl 25 Mcg/hr Patch 72 Hr Unknown Non Drug Allergy May, Active ENCOUNTERS Encounter Location Date Diagnosis [facility] [id number] [place] [address] 07204- 2977 Nov, [facility] [id number] [place] [address] 10618- 8135 Oct, Gross hematuria R31.0 ; Urinary tract infection without hematuria, site unspecified N39.0 and Weakness R53.1 [facility] [id number] [place] [address] 86218- 3575 Oct, [facility] [id number] [place] [address] 78789- 4263 Oct, [facility] [id number] [place] [address] 00370- 2410 Oct, Medicare welcome exam Z00.00 [facility] [id number] [place] [address] 32839- 5559 September, Back pain M54.9 and Right anterior knee pain M25.561 [facility] [id number] [place] [address] 36945- 3789 September, [facility] [id number] [place] [address] 24421- 6049 September, [facility] [id number] [place] [address] 92144- 5474 September, Essential hypertension I10 [facility] [id number] [place] [address] 61752- 7829 September, [facility] [id number] [place] [address] 75567- 6269 September, RLQ abdominal pain R10.31 ; Low back pain M54.5 and Other chronic pain G89.29 [facility] [facility] [address], [place] [address] 8931 Aug, Medicare welcome exam Z00.00 [facility] [id number] [place] [address] 76130- 9446 Aug, [facility] [id number], [place] [address] 4056 Aug, Acute pyelonephritis N10 and Medicare welcome exam Z00.00 [facility] [id number], [place] [address] Aug, Dysuria R30.0 and Acute pyelonephritis N10 [facility] [id number] [place] [address] 99263- 9776 Aug, [facility] [id number] [place] [address] 76976- 3793 Aug, [facility] [id number] [place] [address] 79223- 4960 Aug, [facility] [id number], [place] [address] 4026 Aug, [facility] [id number] [place] [address] 25968- 7543 Jul, [facility] [id number], [place] [address] 8790 Jul, Renal calculus, right N20.0 and Medicare welcome exam Z00.00 [facility] [id number], [place] [address] Jul, Dysuria R30.0 and Renal calculus, right N20.0 [facility] [id number], [place] [address]- 9500 Jul, Medicare welcome exam Z00.00 [facility] [id number], [place] [address]- 6429 Jun, Gastroesophageal reflux disease without esophagitis K21.9 and Generalized abdominal pain R10.84 [facility] [address], [place] [address]- 2820 09 Jun, 2017 Medicare welcome exam Z00.00 [facility] [id number] [place] [address] 76594- 2786 05 Jun, 2017 [facility] [id number] [place] [address] 61017- 2546 05 Jun, 2017 Medicare welcome exam Z00.00 and Encounter for screening mammogram for malignant neoplasm of breast Z12.31 [facility] [id number] [place] [address] 04143- 4425 02 Jun, 2017 Chronic pain G89.29 [facility] [id number] [place] [address] 69466- 0155 May, [facility] [id number] [place] [address] 91476- 3389 May, Pelvic pain R10.2 [facility] [id number] [place] [address] 12000- 0161 May, Pelvic pain R10.2 [facility] [id number] [place] [address] 04796 -6300 May, Renal calculus, right N20.0 [facility] [id number] [place] [address] 34323- 0576 May, Hematuria, unspecified type R31.9 and Nephrolithiasis N20.0 [facility] [id number] [place] [address] 05776 -8112 May, Dysuria R30.0 and Nephrolithiasis N20.0 [facility] [id number] [place] [address] 11548- 8421 May, [facility] [id number] [place] [address] 01215 -3360 May, Abdominal pain R10.9 and Kidney stone N20.0 [facility] [id number], [place] [address]- 2213 May, [facility] [id number] [place] [address] 79457- 9194 May, Chronic pain G89.29 and Panic attacks F41.0 [facility] [id number], [place] [address]- 1832 May, Urinary tract infection without hematuria, site unspecified N39.0 [facility] [id number] [place] [address] 58558- 9654 Apr, Right lower quadrant abdominal pain R10.31 and Abnormal serum lipase level R74.8 [facility] [id number], [place] [address]- 0332 Apr, Recurrent urinary tract infection N39.0 [facility] [id number] [place] [address] 00168- 0685 Apr, UTI symptoms R39.9 ; Recurrent urinary tract infection N39.0 and Pelvic pain R10.2 [facility] [id number] [place] [address] 10648- 2552 Apr, Chronic pain G89.29 and Panic attacks F41.0 [facility] [id number], [place] [address]- 8050 Apr, Dysuria R30.0 [facility] [id number] [place] [address] 06836- 9783 Apr, [facility] [id number] [address]- 4173 Apr, Dysuria R30.0 and Urinary tract infection without hematuria , site unspecified N39.0 [facility] [id number], [place] [address]- 8571 Mar, UTI symptoms R39.9 [facility] [id number] [place] [address] 72637- 0716 Mar, [facility] [id number], [place] [address]- 4915 Mar, Panic attacks F41.0 and Chronic pain G89.29 [facility] [id number] [place] [address] 97089- 9737 Mar, [facility] [id number] [place] [address] 24199- 1706 Mar, Dysuria R30.0 [facility] [facility] [id number] [place] [address] 45577- 1778 Mar, Dysuria R30.0 [facility] [id number] [place] [address] 40016- 3958 Feb, Chronic pain G89.29 ; Shortness of breath R06.02 ; Weight loss R63.4 ; Encounter for immunization Z23 ; Bone pain M89.8X9 ; Right anterior knee pain M25.561 and Cough R05 [facility] [id number] [place] [address] 33057- 5027 Feb, Shortness of breath R06.02 [facility] [id number] [place] [address] 14365- 9298 Feb, [facility] [id number] [place] [address] 83838- 3255 Feb, Panic attacks F41.0 and Chronic pain G89.29 [facility] [id number] [place] [address] 94885- 8915 Feb, [facility] [id number] [place] [address] 62838- 2424 Feb, Panic attacks F41.0 ; Shortness of breath R06.02 and Encounter for immunization Z23 [facility] [id number] [place] [address] 76732- 1920 Jan, [facility] [id number] [place] [address] 94223- 1132 Jan, Anxiety F41.9 and Chronic pain G89.29 [facility] [id number] [place] [address] 92900- 3089 Dec, Anxiety F41.9 and Chronic pain G89.29 [facility] [id number] [place] [address] 48337- 3291 Nov, Chronic pain G89.29 [facility] [facility] [address] 64189- 4039 Nov, Anxiety F41.9 [facility] [facility] [address] 34453- 0722 Nov, Chronic pain G89.29 ; Essential hypertension I10 and Other emphysema J43.8 [facility] [facility] [address] 19680- 8663 Oct, Anxiety F41.9 [facility] [facility] [address] 05310- 7961 Oct, [facility] [facility] [address] 46209- 6582 Oct, Chronic pain G89.29 [facility] [id number] [place] [address] 58796- 6628 September, Recurrent UTI N39.0 ; Neuropathy G62.9 and Anxiety F41.9 [facility] [facility] [id number] [place] [address] 15789- 8265 September, [facility] [facility] [id number] [place] [address] 41127- 6274 September, Chronic pain G89.29 [facility] [facility] [id number] [place] [address] 09416- 8933 September, [facility] [id number] [place] [address] 60862- 8578 Aug, Post-traumatic stress disorder, chronic F43.12 ; Chronic urinary tract infection N39.0 ; Gastroesophageal reflux disease without esophagitis K21.9 ; Chronic pain G89.29 ; Essential hypertension I10 and Tobacco abuse Z72.0 [facility] [id number] [address] Aug, [facility] [id number] [place] [address] 95057- 8841 Aug, Chronic pain G89.29 [facility] [id number] [place] [address] 12451- 0633 Aug, Insomnia, unspecified type G47.00 [facility] [id number] [place] [address] 54553- 7045 Aug, [facility] [id number] [place] [address] 33679- 1193 24 Jul, 2016 Chronic pain G89.29 [facility] [id number] [place] [address] 16834- 5083 Jul, [facility] [id number] [place] [address] 97989- 0819 Jul, [facility] [id number] [place] [address] 11821- 9990 Jul, [facility] [id number] [place] [address] 93410- 9803 Jul, Recurrent UTI (urinary tract infection) N39.0 [facility] [id number] [place] [address] 21504- 1148 14 Jul, 2016 [facility] [id number] [place] [address] 43988- 9258 Jun, Chronic pain G89.29 [facility] [id number] [place] [address] 43455- 0600 17 Jun, 2016 [facility] [id number] [place] [address] 42006- 0660 Jun, [facility] [id number] [place] [address] 88281- 0697 May, Chronic pain G89.29 [facility] [id number] [place] [address] 06018- 5777 May, Weight loss R63.4 and Shortness of breath R06.02 [facility] [id number] [place] [address] 92838- 1513 May, Chronic pain G89.29 ; Weight loss R63.4 and Tobacco abuse Z72.0 [facility] [id number] [place] [address] 85262- 5707 May, [place] [facility] [id number] [place] [address] 72619- 9371 May, Hypoxia R09.02 [place] [facility] [id number] [place] [address] 88494- 8690 May, [facility] [id number] [place] [address] 53522- 9377 May, Pulmonary emphysema, unspecified emphysema type J43.9 [facility] [id number] [place] [address] 62960 -7637 May, [facility] [id number] [place] [address] 40213- 0945 May, [facility] [id number] [place] [address] 23863- 7920 May, [facility] [id number] [place] [address] 05670- 2924 May, Chronic pain G89.29 ; Encounter for immunization Z23 ; Right anterior knee pain M25.561 and Cough R05 [place] [id number] [place] [address] 95404- 8915 Apr, Chronic pain G89.29 [facility] [id number] [place] [address] 51216- 4999 Apr, [facility] [id number] [place] [address] 03443- 2535 Apr, Generalized anxiety disorder F41.1 and Depression, unspecified depression type F32.9 [facility] [id number] [place] [address] 05874- 1141 Apr, Chronic pain G89.29 ; Hypokalemia E87.6 and Insomnia, unspecified type G47.00 [facility] [id number] [place] [address] 28886- 7641 Apr, [facility] [id number] [place] [address] 42716- 1322 Apr, Chronic pain G89.29 [facility] [id number] [place] [address] 35429- 5666 Apr, [facility] [id number] [place] [address] 08334- 5269 Mar, [facility] [id number] [place] [address] 30616- 2863 Mar, Insomnia, unspecified type G47.00 [facility] [id number] [place] [address] 37538- 2913 Mar, Chronic pain G89.29 [facility] [id number] [place] [address] 25119- 7606 Mar, [facility] [id number] [place] [address] 23803- 8930 Feb, [facility] [id number] [place] [address] 40731- 1463 Feb, [facility] [id number] [place] [address] 51382- 2722 Feb, [facility] [id number] [place] [address] 44166- 1375 Feb, [facility] [id number] [place] [address] 64615- 1500 Feb, [facility] [id number], [place] [address]- 0392 29 Jan, 2016 [facility] [id number], [place] [address]- 2447 26 Jan, 2016 [facility] [id number], [place] [address]- 2361 20 Jan, 2016 [facility] [id number] [place] [address] 94375- 9939 13 Jan, 2016 [facility] [id number] [place] [address] 16433- 8832 12 Jan, 2016 [facility] [id number] [place] [address] 74080- 1871 07 Jan, 2016 Chronic pain G89.29 [facility] [id number] [place] [address] 85370- 6586 Jan, Chronic pain G89.29 and Fibromyalgia M79.7 [facility] [id number] [place] [address] 01455- 5516 Dec, Depression, unspecified depression type F32.9 and Generalized anxiety disorder 300.02 [facility] [id number] [place] [address] 81754- 9316 Dec, Dysthymia F34.1 ; Insomnia, unspecified type G47.00 and Chronic pain G89.29 [facility] [id number], [place] [address]- 8118 Dec, Chronic pain G89.29 [facility] [id number], [place] [address]- 1001 Dec, Insomnia, unspecified type G47.00 [facility] [id number], [place] [address] Dec, Fibromyalgia M79.7 and Chronic pain G89.29 [facility] [id number] [place] [address] Dec, [facility] [id number], [place] [address] Dec, [facility] [id number] [place] [address] [id number]- 4963 Dec, [facility] [id number] [place] [address]- 3429 Dec, [facility] [id number] [place] [address] 44462- 1306 Dec, Chronic pain G89.29 [facility] [id number] [place] [address] 18718- 9326 Dec, [facility] [id number] [place] [address] 92477- 9136 Dec, [facility] [id number] [place] [address] 06340- 3077 Dec, [facility] [id number] [place] [address] 56331- 1304 Dec, Chronic pain G89.29 and Dysthymia F34.1 [facility] [id number] [place] [address] 29119- 7824 Nov, [facility] [id number] [place] [address] 28544- 2218 Nov, Hypokalemia E87.6 and Chronic pain G89.29 [facility] [id number] [place] [address] 44208- 2999 Nov, Back pain M54.9 and Pain in right knee M25.561 [facility] [id number] [place] [address] 23961- 2988 Nov, [facility] [id number] [place] [address] 77436- 2645 Nov, Chronic pain G89.29 [facility] [id number] [place] [address] 33520- 2040 Nov, Chronic pain G89.29 ; Weight loss R63.4 ; Bone pain M89.8X9 and Insomnia, unspecified type G47.00 [facility] [id number] [place] [address] 84732- 6860 Nov, Chronic pain G89.29 [facility] [id number] [place] [address] 27962- 4697 Nov, Chronic pain G89.29 [facility] [id number] [place] [address] 65574- 0241 Oct, Chronic pain G89.29 [place] [id number] [place] [address] 82121- 5578 Oct, UTI symptoms R39.9 [facility] [facility] [id number] [place] [address] 86980- 5946 Oct, Chronic pain G89.29 [place] [id number] [place] [address] 16296- 5419 Oct, Chronic pain G89.29 [place] [id number] [place] [address] 99410- 2613 Oct, Chronic pain G89.29 [place] [facility] [id number] [place] [address] 27160- 7446 Oct, Right upper quadrant abdominal pain R10.11 [facility] [facility] [id number] [place] [address] 44555- 6673 Oct, Chronic pain G89.29 [place] [id number] [place] [address] 74713- 0018 Oct, [facility] [facility] [id number] [place] [address] 71897- 7318 September, Chronic pain G89.29 [facility] [id number] [place] [address] 57491- 1966 September, Dysuria R30.0 and Urinary tract infection without hematuria , site unspecified N39.0 [facility] [id number], [place] [address] 7958 September, [facility] [id number] [place] [address] 35706- 8631 September, Dysuria R30.0 [facility] [id number] [place] [address] 25588- 5169 September, Chronic pain G89.29 [facility] [id number] [place] [address] 44290 2545 September, Chronic pain G89.29 and Essential hypertension I10 [facility] [id number] [place] [address] 53711- 9994 September, [facility] [id number] [place] [address] 92722- 1919 September, [facility] [id number] [place] [address] 18297- 1041 September, [facility] [id number] [place] [address] 46445- 5656 Aug, UTI symptoms R39.9 [facility] [id number] [place] [address] 21407- 6120 Aug, Dysuria R30.0 [facility] [id number], [place] [address] 4450 Aug, [facility] [id number] [place] [address] 04319- 4013 Aug, [facility] [id number] [place] [address] 88632- 6589 Aug, [facility] [id number] [place] [address] 33369- 9190 Aug, Chronic pain G89.29 [facility] [id number], [place] [address] 0408 Aug, Dysthymia F34.1 [facility] [id number], [place] [address] 2751 Aug, Conjunctivitis, unspecified conjunctivitis type, unspecified laterality H10.9 [facility] [id number] [place] [address] 02100791- 3372 31 Jul, 2015 Chronic pain G89.29 ; Back pain M54.9 ; Tobacco abuse Z72.0 and Weight decrease R63.4 [facility] [id number] [place] [address] 63504- 3862 30 Jul, 2015 [facility] [id number] [place] [address] 46871- 6556 30 Jul, 2015 [facility] [id number] [place] [address] 23453- 3894 24 Jul, 2015 Chronic pain G89.29 [facility] [id number] [place] [address] 15128- 1437 22 Jul, 2015 [facility] [id number] [place] [address] 21692- 4171 21 Jul, 2015 [facility] [id number] [place] [address] 80012- 0436 18 Jul, 2015 [facility] [id number] [place] [address] 41450- 2816 17 Jul, 2015 [facility] [id number] [place] [address] 13142- 1298 17 Jul, 2015 Chronic pain G89.29 [facility] [id number] [place] [address] 34711- 4172 16 Jul, 2015 Chronic pain G89.29 [facility] [id number] [place] [address] 19660- 3772 15 Jul, 2015 [facility] [id number] [place] [address] 11932- 6961 10 Jul, 2015 [facility] [id number] [place] [address] 16727- 7644 Jul, [facility] [id number] [place] [address] 89282- 5545 Jul, [facility] [id number] [place] [address] 49753- 7158 Jun, [facility] [id number] [place] [address] 60669- 2223 Jun, Depression, unspecified depression type F32.9 [facility] [id number] [place] [address] 45769- 3498 Jun, Pain in right knee M25.561 [facility] [facility] [id number] [place] [address] 61549- 6354 Jun, Chronic pain G89.29 ; Back pain M54.9 ; Bone pain M89.8X9 and Weight loss R63.4 [place] [facility] [id number] [place] [address] 79757- 5351 Jun, [facility] [id number] [place] [address] 56036- 3316 May, [place] [facility] [id number] [place] [address] 40201- 0156 May, UTI symptoms R39.9 ; Pain in right knee M25.561 ; Right low back pain, with sciatica presence unspecified M54.5 ; Right foot pain M79.671 ; Hypokalemia E87.6 and Screening, lipid Z13.220 [place] [id number] [place] [address] 88687- 8898 May, [facility] [id number] [place] [address] 93691- 3494 May, [facility] [id number], [place] [address]- 7693 Mar, [facility] [id number] [place] [address] 26312- 1025 Mar, [facility] [id number] [place] [address] 95199- 8347 Mar, Hypokalemia E87.6 [facility] [id number] [place] [address] 57272- 1214 Mar, Pain in right leg M79.604 ; Encounter for immunization Z23 ; Pain in right knee M25.561 and Hypokalemia E87.6 [facility] [address] [address]- 1958 Jan, [facility] [address] 16804- 9651 Jan, [facility] [address] 50679- 8607 Jan, Abdominal pain, generalized 789.07 [facility] [address] 76867- 2920 Jan, Abdominal pain, generalized 789.07 [facility] [id number] [place] [address] 84077- 2929 Dec, [facility] [id number] [place] [address] 02214- 9610 Dec, [facility] [id number] [place] [address] 06131- 8971 Dec, [facility] [id number] [place] [address] 30581- 2974 Nov, Hallux valgus 735.0 and Hammertoe 735.4 [facility] [id number] [place] [address] 32710- 7360 Nov, [facility] [id number] [place] [address] 49065- 6316 Nov, Hallux valgus 735.0 and Hammer toe 735.4 [facility] [id number] [place] [address] 24472- 2546 Oct, [facility] [id number], [place] [address]- 4447 Oct, [facility] [id number], [place] [address]- 5939 Oct, Pre-op evaluation V72.84 [facility] [id number], [place] [address]- 3681 Oct, [facility] [id number] [address]- 1951 Oct, [facility] [id number]- 5216 September, [facility] [id number], [place] [address]- 3776 September, [facility] [id number], [place] [address]- 7228 September, Hallux valgus (acquired) 735.0 and Other hammer toe ( acquired) 735.4 [facility] [id number], [place] [address]- 1758 Aug, [facility] [id number], [place] [address]- 9870 Aug, [facility] [id number], [place] [address]- 8427 Jul, [facility] [id number], [place] [address]- 6363 Jul, [facility] [id number] [address]- 8084 Jul, [facility] [id number], [place] [address]- 7365 Jul, [facility] [id number] [address]- 8747 Jul, [facility] [id number] [place] [address]- 4633 Jul, [facility] [place] [facility] [address] [id number] [place] [address]- 0696 Jul, [facility] [place] [facility] [address] [id number] [place] [address]- 5600 Jul, [facility] [place] [facility] [address] [id number] [place] [address]- 1811 Jun, 2014 [facility] [place] [facility] [address] [id number] [place] [address]- 1612 Jun, 2014 [facility] [place] [facility] [address] [id number] [place] [address]- 8920 Jun, 2014 [facility] [place] [facility] [address] [facility] [id number] [place] [address]- 9856 Jun, 2014 [facility] [place] [facility] [address] [id number] [place] [address]- 2108 Jun, [facility] [place] [facility] [address] [id number] [place] [address]- 8782 Jun, [facility] [place] [facility] [address] [facility] [id number] [place] [address]- 1578 Jun, [facility] [place] [facility] [address] [facility] [id number] [place] [address]- 3079 Jun, [facility] [place] [facility] [address] [facility] [id number] [place] [address]- 7784 Jun, [facility] [place] [facility] [address] [id number] [place] 4399 Jun, [facility] [place] [facility] [address] [id number] [place] [address]- 4433 May, [facility] [place] [facility] [address] [id number] [place] [address]- 7855 May, [facility] [place] [facility] [address] [facility] [id number] [place] [address]- 7063 May, [facility] [place] [facility] [address] [id number] [place] [address]- 8285 May, [facility] [place] [facility] [address] [id number] [place] [address]- 1151 May, [facility] [place] [facility] [address] [id number] [place] [address]- 4319 May, [facility] [place] [facility] [address] [id number] [place] [address]- 8602 May, [facility] [place] [facility] [address] [id number] [place] [address]- 0912 May, [facility] [place] [facility] [address] [id number] [place] [address]- 9036 May, [facility] [place] [facility] [address] [id number] [place] [address]- 9642 May, [facility] [place] [facility] [address] [id number] [place] [address]- 4662 May, [facility] [place] [facility] [address] [id number] [place] [address]- 8253 May, [facility] [place] [facility] [address] [id number] [place] [address]- 6424 May, [facility] [place] [facility] [address] [id number] [place] [address]- 3707 May, [facility] [place] [facility] [address] [id number] [place] [address]- 6102 May, [facility] [place] [facility] [address] [id number] [place] [address]- 8549 May, [facility] [place] [facility] [address] [id number] [place] [address]- 1987 May, [facility] [place] [facility] [address] [id number] [place] [address]- 9174 May, [facility] [place] [facility] [address] [id number] [place] [address]- 6429 Apr, [facility] [place] [facility] [address] [id number] [place] [address]- 0441 Apr, [facility] [place] [facility] [address] [id number] [place] 6657 Apr, [facility] [place] [facility] [address] [id number] [place] [address]- 7247 Apr, [facility] [place] [facility] [address] [id number] [place] [address]- 5147 Apr, [facility] [place] [facility] [address] [id number] [place] 5608 Apr, [facility] [place] [facility] [address] [id number] [place] [address]- 6627 Apr, [facility] [place] [facility] [address] [id number] [place] [address]- 7378 Apr, [facility] [place] [facility] [address] [id number] [place] [address]- 5680 Apr, [facility] [place] [facility] [address] [id number] [place] [address]- 7795 Mar, [facility] [place] [facility] [address] [id number] [place] [address]- 2586 Mar, [facility] [place] [facility] [address] [id number] [place] [address]- 4956 Mar, [facility] [place] [facility] [address] [id number] [place] [address]- 8632 Mar, [facility] [place] [facility] [address] [id number] [place] [address]- 9484 Mar, [facility] [place] [facility] [address] [id number] [place] [address]- 9101 Feb, [facility] [place] [facility] [address] [id number] [place] [address]- 8113 Feb, [facility] [place] [facility] [address] [id number] [place] [address]- 4402 Feb, 2013 [facility] [place] [facility] [address] [id number] [place] [address]- 6388 Feb, 2013 [facility] [place] [facility] [address] [id number] [place] [address]- 7076 Feb, 2013 [facility] [place] [facility] [address] [id number] [place] [address]- 6016 Feb, 2013 [facility] [place] [facility] [address] [id number] [place] [address]- 9183 Feb, 2013 [facility] [place] [facility] [address] [id number] [place] [address]- 5479 Feb, 2013 [facility] [place] [facility] [address] [id number] [place] [address]- 7618 Feb, 2013 [facility] [place] [facility] [address] [id number] [place] [address]- 3034 Feb, 2013 [facility] [place] [facility] [address] [id number] [place] [address]- 7470 Feb, [facility] [place] [facility] [address] [id number], [place] [address]- 2499 Feb, 2013 [facility] [place] [facility] [address] [id number], [place] [address]- 0880 Feb, 2013 [facility] [place] [facility] [address] [id number], [place] [address]- 9839 Feb, [facility] [place] [facility] [address] [id number] [place] [address]- 7668 Feb, [facility] [place] [facility] [address] [id number], [place] [address]- 7104 Feb, [facility] [place] [facility] [address] [id number] 1123 Jan, 2013 [facility] [place] [facility] [address] [id number] [place] [address]- 5080 23 Jan, 2013 [facility] [place] [facility] [address] [id number] [place] [address]- 2895 20 Jan, 2013 [facility] [place] [facility] [address] [id number] [place] [address]- 1616 19 Jan, 2013 [facility] [place] [facility] [address] [id number] [place] [address]- 6016 11 Jan, 2013 [facility] [place] [facility] [address] [id number] [place] [address]- 2346 11 Jan, 2013 [facility] [place] [facility] [address] [id number] [place] [address]- 5901 Jan, [facility] [place] [facility] [address] [id number] [place] [address]- 4736 Jan, [facility] [place] [facility] [address] [id number] [place] [address]- 2589 Dec, [facility] [place] [facility] [address] [id number] [place] [address]- 0018 Dec, [facility] [place] [facility] [address] [id number] [place] [address]- 8305 Nov, [facility] [place] [facility] [address] [id number] [place] [address]- 4369 Nov, [facility] [place] [facility] [address] [id number] [place] [address]- 9196 Nov, [facility] [place] [facility] [address] [id number] [place] [address]- 1995 Nov, [facility] [place] [facility] [address] [id number] [place] [address]- 2265 Nov, [facility] [place] [facility] [address] [id number] [place] [address]- 4420 Nov, [facility] [place] [facility] [address] [id number] [place] [address]- 1105 Nov, [facility] [place] [facility] [address] [id number] [place] [address]- 5709 Nov, [facility] [place] [facility] [address] [id number] [place] 0147 Nov, [facility] [place] [facility] [address] [id number] [place] [address]- 1149 Oct, [facility] [place] [facility] [address] [id number] [place] [address]- 1447 Oct, [facility] [place] [facility] [address] [id number] [place] [address]- 6777 Oct, [facility] [place] [facility] [address] [id number] [place] [address]- 4659 Oct, [facility] [place] [facility] [address] [id number] [place] [address]- 8901 Oct, [facility] [place] [facility] [address] [id number] [place] [address]- 2747 Oct, [facility] [place] [facility] [address] [id number] [place] [address]- 2442 September, [facility] [place] [facility] [address] [id number] [place] [address]- 5013 September, [facility] [place] [facility] [address] [id number] [place] [address]- 6722 September, [facility] [place] [facility] [address] [id number] [place] [address]- 9538 September, [facility] [place] [facility] [address] [id number] [place] [address] September, [facility] [place] [facility] [address] [id number] [place] [address] September, [facility] [place] [facility] [address] [id number] [place] [address] September, [facility] [place] [facility] [address] [id number] [place] [address] September, [facility] [address] [id number] [place] [address] September, [facility] [place] [facility] [address] [id number] [place] [address] September, [facility] [place] [facility] [address] [id number] [place] [address] September, [facility] [place] [facility] [address] [id number] [place] [address]702 September, [facility] [place] [facility] [address] [id number] [place] [address] September, [facility] [place] [facility] [address] [id number] [place] [address] September, [facility] [place] [facility] [address] [id number] [place] [address] September, [facility] [place] [facility] [address] [id number] [place] [address]108 September, [facility] [place] [facility] [address] [id number] [place] [address] September, [facility] [place] [facility] [address] [id number] [place] [address]- 28[address] September, [facility] [place] [facility] [address] [id number] [place] [address] 42[address] September, [facility] [place] [facility] [address] [id number] [place] [address]- 4860 September, [facility] [place] [facility] [address] [id number] [place] [address] Aug, [facility] [place] [facility] [address] [id number] [place] [address]- [address]120 Aug, [facility] [place] [facility] [address] [id number] [place] [address]- 68[address] Aug, [facility] [place] [facility] [address] [id number] [place] [address]- [address]80 28 Aug, 2013 [facility] [place] [facility] [address] [id number] [place] [address]- [address] 18 Aug, 2013 [facility] [place] [facility] [address] [id number] [place] [address]- [address] 18 Aug, 2013 [facility] [place] [facility] [address] [id number] [place] [address]- [address] 16 Aug, 2013 [facility] [place] [facility] [address] [id number] [place] [address]- [address]17 16 Aug, 2013 [facility] [place] [facility] [address] [id number] [place] [address]- [address] 15 Aug, 2013 [facility] [place] [facility] [address] [id number] [place] [address]- 4110 15 Aug, 2013 [facility] [place] [facility] [address] [id number] [place] [address]- [address] 14 Aug, 2013 [facility] [place] [facility] [address] [id number] [place] [address]- [address] Aug, [facility] [place] [facility] [address] [id number] [place] [address]- 0134 Aug, [facility] [place] [facility] [address] [id number] [place] [address]- [address] Aug, [facility] [place] [facility] [address] [id number] [place] [address]- [address]283 Aug, [facility] [place] [facility] [address] [id number] [place] [address]- 285[address] Jul, [facility] [place] [facility] [address] [id number] [place] [address] 8448 Jul, [facility] [place] [facility] [address] [id number] [place] [address]- 0484 Jul, [facility] [place] [facility] [address] [id number] [place] [address]- 7510 Jul, [facility] [place] [facility] [address] [id number] [place] [address]- [address]99 Jul, [facility] [place] [facility] [address] [id number] [place] [address]- [address] Jul, [facility] [place] [facility] [address] [id number] [place] [address]- 7150 Jul, [facility] [place] [facility] [address] [id number] [place] [address]- 8466 Jul, [facility] [place] [facility] [address] [id number] [place] [address]- 9760 Jul, [facility] [place] [facility] [address] [id number] [place] [address]- 1755 Jul, [facility] [place] [facility] [address] [id number] [place] [address]- 74[address] Jul, [facility] [place] [facility] [address] [id number] [place] [address]- 2417 Jul, [facility] [place] [facility] [address] [id number] [place] [address]- 1016 Jul, [facility] [place] [facility] [address] [id number] [place] [address]- 96[address] Jul, [facility] [place] [facility] [address] [id number] [place] [address]- 9219 Jul, [facility] [place] [facility] [address] [id number] [place] [address]- 2471 Jun, [facility] [place] [facility] [address] [id number] [place] [address]- 2509 Jun, [facility] [place] [facility] [address] [id number] [place] [address]- 5966 Jun, [facility] [place] [facility] [address] [id number] [place] [address]- 8459 Jun, [facility] [place] [facility] [address] [id number] [place] [address]- 3141 Jun, [facility] [address] [id number] [place] [address]- 0054 Jun, [facility] [place] [facility] [address] [id number] [place] [address]- 6838 May, [facility] [place] [facility] [address] [id number] [place] [address]- 0570 May, [facility] [place] [facility] [address] [id number] [place] [address]- 6540 May, [facility] [place] [facility] [address] [id number] [place] [address]- 6385 May, [facility] [place] [facility] [address] [id number] [place] [address]- 6630 May, [facility] [address] [id number] [place] [address]- 3534 May, [facility] [place] [facility] [address] [id number] [place] [address]- 2413 May, [facility] [place] [facility] [address] [id number] [place] [address]- [address]448 May, [facility] [place] [facility] [address] [address] [id number] [place] [address] May, [facility] [place] [facility] [address] [id number] [place] [address] May, [facility] [place] [facility] [address] [id number] [place] [address]- 5754 May, [facility] [place] [facility] [address] [id number] [place] [address] 4308 May, [facility] [place] [facility] [address] [id number] [place] [address]- 6667 May, [facility] [place] [facility] [address] [id number] [place] [address]- 2367 May, [facility] [place] [facility] [address] [id number] [place] [address]- 5889 May, [facility] [address] [id number] [place] [address]- 7609 Apr, [facility] [place] [facility] [address] [id number] [place] [address]- 8081 Apr, [facility] [place] [facility] [address] [id number] [place] [address]- 4603 Apr, [facility] [place] [facility] [address] [id number] [place] [address]- 6184 Apr, [facility] [place] [facility] [address] [id number] [place] [address]- 2513 Apr, [facility] [place] [facility] [address] [id number] [place] [address]- 1328 Apr, [facility] [place] [facility] [address] [id number] [place] [address]- 4416 Apr, [facility] [place] [facility] [address] [id number] [place] [address]- 0199 Apr, [facility] [place] [facility] [address] [id number] [place] [address]- 1397 Apr, [facility] [place] [facility] [address] [id number] [place] [address]- 2231 Apr, [facility] [place] [facility] [address] [id number] [place] [address]- 2134 Mar, [facility] [place] [facility] [address] [id number] [place] [address]- 5111 Mar, [facility] [place] [facility] [address] [id number] [place] [address]- 1476 Mar, [facility] [place] [facility] [address] [id number] [place] [address]- 5864 Mar, [facility] [place] [facility] [address] [id number], [place] [address] 9438 Mar, [facility] [place] [facility] [address] [id number] [place] [address]- 9359 Mar, [facility] [place] [facility] [address] [id number] [place] [address]- 8217 Mar, [facility] [place] [facility] [address] [id number], [place] [address]- 9711 Mar, [facility] [place] [facility] [address] [id number], [place] [address]- 4296 Mar, [facility] [place] [facility] [address] [id number] [place] [address]- 0563 Mar, [facility] [place] [facility] [address] [id number], [place] [address]- 0774 Mar, [facility] [place] [facility] [address] [id number], [place] [address]- 7153 Mar, [facility] [place] [facility] [address] [id number], [place] [address]- 5855 Mar, [facility] [place] [facility] [address] [id number], [place] [address]- 3756 Mar, [facility] [place] [facility] [address] [id number], [place] [address]- 3500 Mar, [facility] [place] [facility] [address] [id number], [place] [address]- 6660 18 Mar, 2013 [facility] [place] [facility] [address] [id number], [place] [address]- 1493 14 Mar, 2013 [facility] [place] [facility] [address] [id number], [place] [address]- 6400 14 Mar, 2013 [facility] [place] [facility] [address] [id number], [place] [address]- 8212 12 Mar, 2013 [facility] [place] [facility] [address] [id number], [place] [address]- 2351 Mar, [facility] [place] [facility] [address] [id number] [place] [address]- 6042 Mar, 2012 [facility] [address] [id number] [place] [address] 1939 Mar, [facility] [place] [facility] [address] [id number] [place] [address]- 1862 Mar, [facility] [address] [id number] [place] [address]- 4527 Feb, [facility] [place] [facility] [address] [id number] [place] [address]- 6741 18 Feb, 2013 [facility] [address] [id number] [place] [address]- 1520 16 Feb, 2013 [facility] [place] [facility] [address] [id number] [place] [address]- 0039 16 Feb, 2013 [facility] [place] [facility] [address] [id number] [place] [address]- 4358 15 Feb, 2013 [facility] [address] [id number] [place] [address]- 9576 Feb, [facility] [place] [facility] [address] [id number] [place] [address]- 6405 Feb, [facility] [address] [facility] [id number] [place] [address]- 3336 07 Feb, 2013 [facility] [place] [facility] [address] [id number] [place] [address]- 9030 04 Feb, 2013 [facility] [place] [facility] [address] [id number] [place] [address]- 0299 Feb, [facility] [place] [facility] [address] [id number] [place] [address]- 3584 30 Jan, 2013 [facility] [place] [facility] [address] [id number] [place] [address]- 2546 26 Jan, 2013 [facility] [place] [facility] [address] [id number] [place] [address]- 3725 24 Jan, 2013 [facility] [place] [facility] [address] [id number] [place] [address]- 7913 Jan, [facility] [place] [facility] [address] [id number] [place] [address]- 0551 Jan, [facility] [place] [facility] [address] [id number] [place] [address]- 8484 Dec, [facility] [place] [facility] [address] [id number] [place] [address]- 2599 Dec, [facility] [place] [facility] [address] [id number] [place] [address]- 8528 Dec, [facility] [place] [facility] [address] [id number] [place] [address]- 5911 Dec, [facility] [place] [facility] [address] [id number] [place] [address]- 1331 Dec, [facility] [place] [facility] [address] [id number] [place] [address]- 1911 Dec, [facility] [place] [facility] [address] [id number] [place] [address]- 8501 Dec, [facility] [place] [facility] [address] [id number] [place] [address]- 0622 Nov, [facility] [place] [facility] [address] [id number] [place] [address]- 9180 Nov, [facility] [place] [facility] [address] [id number], [place] [address]- 8277 Nov, [facility] [place] [facility] [address] [id number] [place] [address]- 1386 Nov, [facility] [place] [facility] [address] [id number] [place] [address]- 1014 Nov, [facility] [place] [facility] [address] [id number] [place] [address]- 8032 Oct, [facility] [place] [facility] [address] [id number] [place] [address]- 0663 Oct, [facility] [address] [id number] [place] [address]- 6986 Oct, [facility] [address] [id number] [place] [address]- 0952 September, [facility] [address] [id number] [place] [address]- 5160 September, [facility] [address] [id number] [place] [address]- 7865 September, [facility] [address] [id number] [place] [address]- 8270 September, [facility] [address] [id number] [place] [address]- 5444 September, [facility] [address] [id number] [place] [address]- 3332 September, [facility] [address] [id number] [place] [address]- 9551 September, [facility] [address] [id number] [place] [address]- 8438 Aug, [facility] [address] [id number] [place] [address]- 4743 Aug, [facility] [address] [id number] [place] [address]- 4638 Aug, [facility] [place] [facility] [address] [id number] [place] [address]- 9737 29 Jul, 2012 [facility] [place] [facility] [address] [id number] [place] [address]- 5463 27 Jul, 2012 [facility] [place] [facility] [address] [id number] [place] [address]- 8334 Jul, [facility] [place] [facility] [address] [id number] [place] [address]- 1556 20 Jul, 2012 [facility] [place] [facility] [address] [id number] [place] [address]- 8954 18 Jul, 2012 [facility] [place] [facility] [address] [id number] [place] [address]- 6476 Jul, [facility] [place] [facility] [address] [id number] [place] [address]- 2546 Jul, [facility] [place] [facility] [address] [id number] [place] [address] 2549 Jun, [facility] [place] [facility] [address] [id number] [place] [address] 2544 Jun, [facility] [place] [facility] [address] [id number] [place] [address]- 0366 Jun, [facility] [place] [facility] [address] [id number] [place] [address]- 2199 Jun, [facility] [place] [facility] [address] [id number] [place] [address]- 2770 Jun, [facility] [place] [facility] [address] [id number] [place] [address]- 9223 Jun, [facility] [place] [facility] [address] [id number] [place] [address]- 2302 Jun, [facility] [place] [facility] [address] [id number] [place] [address]- 3400 Jun, [facility] [place] [facility] [address] [id number] [place] [address]- 2739 Jun, [facility] [place] [facility] [address] [id number] [place] [address]- 2542 Jun, [facility] [place] [facility] [address] [id number] [place] [address] 2546 May, [facility] [place] [facility] [address] [id number] [place] [address]231 May, [facility] [place] [facility] [address] [id number] [place] [address]- 1573 17 May, 2012 [facility] [address] [id number] [place] [address]- 2996 17 May, 2012 [facility] [place] [facility] [address] [id number] [place] [address]- 9596 15 May, 2012 [facility] [address] [id number] [place] [address]- 2216 07 May, 2012 [facility] [place] [facility] [address] [id number] [place] 4509 31 Apr, 2012 [facility] [address] [id number] [place] [address]- 9288 31 Apr, 2012 [facility] [place] [facility] [address] [id number] [place] [address]- 1169 Apr, [facility] [address] [id number] [place] [address]- 6476 Apr, [facility] [place] [facility] [address] [id number] [place] [address]- 5878 Apr, [facility] [address] [id number] [place] [address]- 4111 Apr, [facility] [place] [facility] [address] [id number] [place] [address]- 5625 Apr, [facility] [place] [facility] [address] [id number] [place] [address]- 2022 Mar, [facility] [place] [facility] [address] [id number] [place] [address]- 2543 29 Mar, 2012 [facility] [place] [facility] [address] [id number] [place] [address]- 3635 Mar, [facility] [place] [facility] [address] [id number] [place] [address]- 2751 Mar, [facility] [place] [facility] [address] [id number] [place] [address]- 2578 Mar, [facility] [place] [facility] [address] [id number] [place] [address]- 9653 Mar, [facility] [place] [facility] [address] [id number] [place] [address]- 7936 Mar, [facility] [place] [facility] [address] [id number] [place] [address] 2546 Mar, [facility] [place] [facility] [address] [id number] [place] [address]- 7076 Mar, [facility] [place] [facility] [address] [id number] [place] [address]- 0202 Mar, [facility] [place] [facility] [address] [id number] [place] [address]- 8879 Mar, [facility] [place] [facility] [address] [id number] [place] [address]- 3098 Mar, [facility] [place] [facility] [address] [id number] [place] [address]- 1230 Mar, [facility] [place] [facility] [address] [id number] [place] [address]- 7144 Mar, [facility] [place] [facility] [address] [id number] [place] [address]- 9835 Mar, [facility] [place] [facility] [address] [id number] [place] [address]- 9577 Mar, [facility] [place] [facility] [address] [id number] [place] [address]- 8740 Mar, [facility] [place] [facility] [address] [id number] [place] [address]- 8782 Feb, [facility] [place] [facility] [address] [id number] [place] [address]- 4206 Feb, [facility] [place] [facility] [address] [id number] [place] [address]- 1881 Feb, [facility] [place] [facility] [address] [id number] [place] [address]- 3284 17 Feb, 2012 [facility] [place] [facility] [address] [id number] [place] [address]250 16 Feb, 2012 [facility] [place] [facility] [address] [id number] [place] [address]- 5446 16 Feb, 2012 [facility] [place] [facility] [address] [id number] [place] [address]- 2066 Feb, [facility] [place] [facility] [address] [id number] [place] [address]- 8310 Feb, [facility] [place] [facility] [address] [id number] [place] 2506 05 Feb, 2012 [facility] [place] [facility] [address] [id number] [place] [address]- 2793 04 Feb, 2012 [facility] [place] [facility] [address] [id number] [place] [address]- 7275 Feb, [facility] [place] [facility] [address] [id number], [place] [address]- 0119 27 Jan, 2012 [facility] [place] [facility] [address] [id number] [place] [address]- 2775 25 Jan, 2012 [facility] [place] [facility] [address] [id number] [place] [address]- 4254 13 Jan, 2012 [facility] [place] [facility] [address] [id number], [place] [address]- 4300 12 Jan, 2012 [facility] [place] [facility] [address] [id number], [place] [address]- 5291 07 Jan, 2012 [facility] [place] [facility] [address] [id number] [place] [address]- 3080 31 Dec, 2011 [facility] [place] [facility] [address] [id number], [place] [address]- 7163 24 Dec, 2011 [facility] [place] [facility] [address] [id number] [place] [address]- 3105 Dec, [facility] [place] [facility] [address] [id number] [place] [address]- 6972 Dec, [facility] [place] [facility] [address] [id number] [place] [address]- 0854 Dec, [facility] [place] [facility] [address] [id number] [place] [address]- 0476 Dec, [facility] [place] [facility] [address] [id number] [place] [address]- 0495 Dec, [facility] [place] [facility] [address] [id number] [place] [address]- 8544 Dec, [facility] [place] [facility] [address] [id number] [place] [address]- 5571 Nov, [facility] [place] [facility] [address] [id number] [place] [address]- 7931 Nov, [facility] [place] [facility] [address] [id number] [place] [address]- 0368 Nov, [facility] [place] [facility] [address] [id number] [place] [address]- 4377 Nov, [facility] [place] [facility] [address] [id number] [place] [address]- 4451 Nov, [facility] [place] [facility] [address] [id number] [place] [address]- 6471 Oct, [facility] [place] [facility] [address] [id number] [place] [address]- 1430 Oct, [facility] [place] [facility] [address] [id number] [place] [address]- 3572 September, [facility] [place] [facility] [address] [id number] [place] [address]- 2856 September, [facility] [place] [facility] [address] [id number] [place] [address]- 3356 September, [facility] [place] [facility] [address] [id number] [place] [address]- 0658 September, [facility] [address] [id number] [place] [address]- 0568 September, [facility] [address] [id number] [place] [address]- 6223 September, [facility] [address] [id number] [place] [address]- 1036 September, [facility] [address] [id number] [place] [address]- 9168 September, [facility] [address] [id number] [place] [address]- 7587 September, [facility] [address] [id number] [place] [address]- 9541 September, [facility] [address] [id number] [place] [address]- 5578 September, [facility] [address] [id number] [place] [address]- 8519 September, [facility] [address] [id number] [place] [address]- 4699 September, [facility] [address] [id number] [place] [address]- 1326 September, [facility] [address] [id number] [place] [address]- 4800 Aug, [facility] [address] [id number] [place] [address]- 3109 Aug, [facility] [address] [id number] [place] [address]- 0107 Aug, [facility] [place] [facility] [address] [id number] [place] [address]- 7908 Aug, [facility] [address] [id number] [place] [address]- 6101 Jul, [facility] [address] [id number], [place] [address]- 4986 Jul, [facility] [address] [facility] [id number] [place] [address]- 8902 Jul, [facility] [address] [facility] [id number], [place] [address]- 9120 28 Jun, 2011 [facility] [address] [facility] [id number] [place] [id number] Jun, [facility] [address] [facility] [id number] [place] [address]- 7243 Jun, [facility] [address] [facility] [id number] [place] [address]- 6168 Jun, [facility] [address] [facility] [id number] [place] [address]- 1754 07 Jun, 2011 [facility] [id number] [place] [address]- 1842 Jun, [facility] [address] [id number] [place] [address]- 4380 Jun, [facility] [address] [id number] [place] [address]- 5113 Jun, [facility] [address] [id number] [place] [address]- 0661 May, [facility] [place] [facility] [address] [facility] [id number], [place] [address]- 4580 May, [facility] [place] [facility] [address] [facility] [id number], [place] [address] May, [facility] [place] [facility] [address] [id number], [place] [address] May, [facility] [place] [facility] [address] [facility] [id number] [place] [address] May, [facility] [place] [facility] [address] [id number] [address] May, [facility] [place] [facility] [address] [id number] [place] [address] May, [facility] [place] [facility] [address] [id number] [place] [address] May, [facility] [place] [facility] [address] [id number] [place] [address] May, [facility] [place] [facility] [address] [id number] [place] [address] May, [facility] [place] [facility] [address] [id number] [place] [address] May, [facility] [place] [facility] [address] [id number] [place] [address] May, [facility] [place] [facility] [address] [id number] [place] [address] May, [facility] [place] [facility] [address] [id number] [place] [address] May, [facility] [place] [facility] [address] [id number] [place] [address] 30 Apr, 2011 [facility] [place] [facility] [address] [id number] [place] [address] Apr, [facility] [place] [facility] [address] [id number] [place] [address] Apr, [facility] [place] [facility] [address] [id number] [place] [address] Mar, [facility] [place] [facility] [address] [id number] [place] [address] Mar, [facility] [place] [facility] [address] [id number] [place] [address] Feb, [facility] [place] [facility] [address] [id number] [place] [address] Feb, [facility] [place] [facility] [address] [id number] [place] [address] 21 Feb, 2011 [facility] [place] [facility] [address] [id number] [place] [address] 20 Feb, 2011 [facility] [place] [facility] [address] [id number] [place] [address] 13 Feb, 2011 [facility] [place] [facility] [address] [id number] [place] [address] 28 Apr, 2010 [facility] [place] [facility] [address] [id number] [place] [address]- [address] 22 Apr, 2010 [facility] [place] [facility] [address] [id number] [place] [address] 16 Apr, 2010 [facility] [place] [facility] [address] [id number] [place] [address] 15 Apr, 2010 [facility] [place] [facility] [address] [id number] [place] [address] 15 Apr, 2010 [facility] [place] [facility] [address] [id number] [place] [address] Apr, [facility] [place] [facility] [address] [id number] [place] [address] 24 Mar, 2010 [facility] [place] [facility] [address] [id number] [place] [address] 17 Mar, 2010 [facility] [place] [facility] [address] [id number], [place] [address] 17 Mar, 2010 [facility] [place] [facility] [address] [id number], [place] [address] 28 Feb, 2010 [facility] [place] [facility] [address] [id number] [place] [address] Feb, [facility] [place] [facility] [address] [id number], [place] [address] Feb, [facility] [place] [facility] [address] [id number], [place] [address] 15 Feb, 2010 [facility] [place] [facility] [address] [facility] [id number] [place] [address] Dec, [facility] [address] [facility] [id number], [place] [address] Dec, [facility] [address] [id number] [address] Oct, [facility] [id number], [place] [address] Mar, [facility] [address] [id number], [place] [address] Mar, [address] [address] [facility] [id number], [place] [address] September, IMMUNIZATIONS No Known Immunizations SOCIAL HISTORY Never Assessed REASON FOR VISIT kidney stones PT has a kidney stone, she feels it is moving as she is now having severe pain with it. VALENTINA Davidson PLAN OF CARE Activity Details Follow Up prn Reason: VITAL SIGNS Height 64 in 2017-05-30 Weight 132.6 lbs 2017-05-30 Temperature 97.6 degrees Fahrenheit 2017-05-30 Heart Rate 78 bpm 2017-05-30 Respiratory Rate 22 2017-05-30 BMI 22.76 kg/m2 2017-05-30 Blood pressure systolic 172 mmHg 2017-05-30 Blood pressure diastolic 102 mmHg 2017-05-30 MEDICATIONS Medication Instructions Dosage Frequency Start Date End Date Duration Status Neurontin 100 mg Orally 3 times a day 1 capsule 8h September, 30 days Not-Taking Dicyclomine HCl 20 mg Orally Four times a day prn 1 tablet Apr, Active Motrin 800 MG Orally Three times a day 1 tablet with food or milk 8h Not-Taking Flomax 0.4 MG Orally Once a day 1 capsule 24h May, May, 14 days Active Bentyl 20 MG Orally Once a day 1 tablet 24h Active Chlordiazepoxide HCl 10 MG Orally Three times a day 2 capsules 8h Aug, 28 days Active Ibuprofen 600 MG Orally Three times a day 1 tablet with food as needed 8h Not-Taking Robaxin 500 mg Orally 4 times a day 1 tablet 6h 30 Active Levofloxacin 750 MG Orally Once a day 1 tablet 24h Not-Taking Ventolin HFA 108 (90 Base) MCG/ACT Inhalation every 4 hrs 2 puffs as needed 4h 03 Nov, 2016 Active Lactobacillus - Orally 4 times a day 2 capsules 6h Not-Taking Loratadine 10 MG Orally Once a day 1 tablet 24h 30 Not-Taking Potassium Chloride ER 20 MEQ Orally Once a day 1 capsule 24h 18 Mar, 2015 90 days Not-Taking Vagifem 10 MCG Vaginal Two times a Week 1 tablet 15 Jul, 2016 30 day( s) Not-Taking Acetaminophen-Codeine #3 300-30 MG Orally every 6 hrs 1 tablet as needed 6h 07 Oct, 2016 28 days Active Phenazopyridine HCl 200 MG Orally Three times a day 1 tablet after meals 8h Not-Taking Trazodone HCl 50 mg Orally Once a day 1-2 tablet at bedtime as needed 24h 19 Apr, 2016 Not-Taking Dicyclomine HCl 20 MG Orally 2 times a day 1 tablet 30 to 60 minutes before meals 12h 90 days Not-Taking Cefdinir 300 MG Orally every 12 hrs 1 capsule 12h Not-Taking Lansoprazole 30 MG Orally Once a day 1 capsule 24h 30 days Active Fluticasone Propionate 50 MCG/ACT Nasally twice a day 1 spray in each nostril 12h Feb, 30 day(s) Active Toprol XL 50 MG Orally once daily 1 tablet 24h Aug, 30 Active Hydrocodone-Acetaminophen 7.5-325 MG Orally every 4-6 hrs 1 -2 tablet as needed May, Active RESULTS Name Result Date Reference Range UA LONG DIP (IN HOUSE) 2017-05-30 Lot # [id number] Exp date Clarity clear Color yellow Odor none GLU negative ANURAG negative KET negative SG <=1.005 BLO 1+ pH 5.5 Protein trace URO 0.2 NIT negative LOUIE negative Lot # [id number] Exp date 08/2017 PROCEDURES Procedure Date Ordered Result Body Site URINALYSIS, AUTO, W/O SCOPE May 30, 2017 [facility] VISIT ESTABLISHED PATIENT May 30, 2017 INSTRUCTIONS MEDICATIONS ADMINISTERED No Known Medications [...] Surgical History section Surgical History orthopedic surgery-Dr. Adore-left foot surgery bunionectomy, reduction of hammertoe 02/2012 Surgical History Foot surgery. Removal of hardware 10/2014 Surgical History Left foot surgery 10/2014 Surgical History left knee arthroplasty 12/2014 Hospitalization History Hospitalization for surgery only Hospitalization History ICU-COPD,UTI 05/2015
--- OUTSIDE RECORDS SUMMARY | 2017-11-27 15:23 | XMS REPORT ---
Author Author VALERIE ZAVALA [facility] Address [address] [place] [address] Care Team Providers Care Community Service Specialist Name Role Phone VALERIE ZAVALA Unavailable PROBLEMS Type Condition ICD9-CM Code DYD53-CP Code Onset Dates Condition Status SNOMED Code Problem Generalized anxiety disorder F41.1 Active 21164119 Problem Hypokalemia E87.6 Active 738975123 Problem Right low back pain, with sciatica presence unspecified M54.5 Active 211450740 Problem Post-traumatic stress disorder, chronic F43.12 Active 12614692 Problem Pain in right knee M25.561 Active 15666122 Problem Gastroesophageal reflux disease without esophagitis K21.9 Active 318788771 Problem UTI symptoms R39.9 Active 29322257 Problem Essential hypertension I10 Active 55599271 Problem Anxiety F41.9 Active 70376166 Problem Neuropathy G62.9 Active 772828728 Problem Other chronic pain G89.29 Active 61606631 Problem Generalized abdominal pain R10.84 Active 222776947 Problem Chronic pain G89.29 Active 37405995 Problem Back pain M54.9 Active 340485355 Problem Right foot pain M79.671 Active 97471983 Problem Panic attacks F41.0 Active 405791937 Problem Other emphysema J43.8 Active 16164976 Problem Kidney stones N20.0 Active 96338748 Problem Renal calculus, right N20.0 Active 81591774 Problem Weight decrease R63.4 Active 378118720 Problem Tobacco abuse Z72.0 Active 17740849 Problem Bone pain M89.8X9 Active 05166181 Problem Depression, unspecified depression type F32.9 Active 88761330 Problem Insomnia, unspecified type G47.00 Active 963602487 Problem Pulmonary emphysema, unspecified emphysema type J43.9 Active 40171240 Problem Right upper quadrant abdominal pain R10.11 Active 493283337 Problem Weight loss R63.4 Active [id number] ALLERGIES No Information ENCOUNTERS Encounter Location Date Diagnosis [facility] [id number] [place] [address] 31932- 7948 September, [facility] [id number] [place] [address] 71525- 5240 September, RLQ abdominal pain R10.31 ; Low back pain M54.5 and Other chronic pain G89.29 [facility] [address] 38808- 0179 Aug, Medicare welcome exam Z00.00 [facility] [id number] [place] [address] 94995- 3361 Aug, [facility] [address] 93325- 7058 Aug, Acute pyelonephritis N10 and Medicare welcome exam Z00.00 [facility] [id number] [place] [address] 76083 -1912 Aug, Dysuria R30.0 and Acute pyelonephritis N10 [facility] [id number] [place] [address] 05134- 5365 Aug, [facility] [id number] [place] [address] 05273- 7098 Aug, [facility] [id number] [place] [address] 69786- 2968 Aug, [facility] [id number] [place] [address] 44127- 3798 Aug, [facility] [id number] [place] [address] 00720- 3663 Jul, [facility] [id number] [place] [address] 27214- 6613 Jul, Renal calculus, right N20.0 and Medicare welcome exam Z00.00 [facility] [id number] [place] [address] 79309 -7020 Jul, Dysuria R30.0 and Renal calculus, right N20.0 [facility] [id number] [place] [address] 58307- 2744 Jul, Medicare welcome exam Z00.00 [facility] [id number] [place] [address] 40558- 3616 Jun, Gastroesophageal reflux disease without esophagitis K21.9 and Generalized abdominal pain R10.84 [facility] [id number] [place] [address] 37938- 9043 Jun, Medicare welcome exam Z00.00 [facility] [address] 47906- 2037 Jun, [facility] [id number] [place] [address] 84493- 2188 Jun, Medicare welcome exam Z00.00 and Encounter for screening mammogram for malignant neoplasm of breast Z12.31 [facility] [id number] [place] [address] 05456- 9892 Jun, Chronic pain G89.29 [facility] [id number] [place] [address] 83925- 3546 May, [facility] [id number] [place] [address] 79112- 5993 May, Pelvic pain R10.2 [facility] [id number] [place] [address] 97170- 5650 May, Pelvic pain R10.2 [facility] [id number] [place] [address] 59977 -1574 May, Renal calculus, right N20.0 [facility] [id number] [place] [address] 73606- 0103 May, Hematuria, unspecified type R31.9 and Nephrolithiasis N20.0 [facility] [address] [place] [address] May, Dysuria R30.0 and Nephrolithiasis N20.0 [facility] [id number] [place] [address] 33746- 4086 May, [facility] [id number] [place] [address] 89275 -3167 May, Abdominal pain R10.9 and Kidney stone N20.0 [facility] [id number] [place] [address] 92097- 3040 May, [facility] [id number] [place] [address] 67384- 4438 May, Chronic pain G89.29 and Panic attacks F41.0 [facility] [id number] [place] [address] 44051- 1249 May, Urinary tract infection without hematuria, site unspecified N39.0 [facility] [id number] [place] [address] 31433- 6201 Apr, Right lower quadrant abdominal pain R10.31 and Abnormal serum lipase level R74.8 [facility] [id number] [place] [address] 31284- 1638 Apr, Recurrent urinary tract infection N39.0 [facility] [id number] [place] [address] 77724- 8374 Apr, UTI symptoms R39.9 ; Recurrent urinary tract infection N39.0 and Pelvic pain R10.2 [facility] [id number] [place] [address] 53909- 0666 Apr, Chronic pain G89.29 and Panic attacks F41.0 [facility] [id number] [place] [address] 37623- 3848 Apr, Dysuria R30.0 [facility] [id number] [place] [address] 29731- 5755 Apr, [facility] [id number] [place] [address] 07377- 4313 Apr, Dysuria R30.0 and Urinary tract infection without hematuria , site unspecified N39.0 [facility] [id number] [place] [address] 71561- 2416 Mar, UTI symptoms R39.9 [facility] [id number] [place] [address] 46052- 7273 Mar, [facility] [id number] [place] [address] 14049- 4054 Mar, Panic attacks F41.0 and Chronic pain G89.29 [facility] [address] 11275- 4253 Mar, [facility] [id number] [place] [address] 38583- 8608 Mar, Dysuria R30.0 [facility] [id number] [place] [address] 90070- 8000 Mar, Dysuria R30.0 [facility] [id number] [place] [address] 74899- 1716 Feb, Chronic pain G89.29 ; Shortness of breath R06.02 ; Weight loss R63.4 ; Encounter for immunization Z23 ; Bone pain M89.8X9 ; Right anterior knee pain M25.561 and Cough R05 [facility] [id number] [place] [address] 60743- 2061 Feb, Shortness of breath R06.02 [facility] [id number] [place] [address] 18621- 0830 Feb, [facility] [id number] [place] [address] 39742- 5536 Feb, Panic attacks F41.0 and Chronic pain G89.29 [facility] [id number] [place] [address] 03008- 8157 Feb, [facility] [id number] [place] [address] 91711- 4296 Feb, Panic attacks F41.0 ; Shortness of breath R06.02 and Encounter for immunization Z23 [facility] [id number] [place] [address] 13374- 4142 27 Jan, 2017 [facility] [address] 37000- 8405 15 Jan, 2017 Anxiety F41.9 and Chronic pain G89.29 [facility] [address] 13810- 6298 Dec, Anxiety F41.9 and Chronic pain G89.29 [facility] [address] 04573- 9572 Nov, Chronic pain G89.29 [facility] [address] 47599- 3190 Nov, Anxiety F41.9 [facility] [address] 08104- 9161 Nov, Chronic pain G89.29 ; Essential hypertension I10 and Other emphysema J43.8 [facility] [address] 05384- 2140 Oct, Anxiety F41.9 [facility] [id number] [place] [address] 78306- 8589 Oct, [facility] [address] 88983- 0836 Oct, Chronic pain G89.29 [facility] [address] 24018- 2165 September, Recurrent UTI N39.0 ; Neuropathy G62.9 and Anxiety F41.9 [facility] [id number] [place] [address] 91783- 3272 September, [facility] [address] 74357- 7515 September, Chronic pain G89.29 [facility] [address] [address]- 8066 September, [facility] [address] [address]- 8216 Aug, Post-traumatic stress disorder, chronic F43.12 ; Chronic urinary tract infection N39.0 ; Gastroesophageal reflux disease without esophagitis K21.9 ; Chronic pain G89.29 ; Essential hypertension I10 and Tobacco abuse Z72.0 [facility] [address] [address] Aug, [facility] [id number] [place] [address] 10865- 3469 Aug, Chronic pain G89.29 [facility] [address] [address]- 5828 Aug, Insomnia, unspecified type G47.00 [facility] [id number] [address]- 9991 Aug, [facility] [id number] [place] [address] 23322- 5204 24 Jul, 2016 Chronic pain G89.29 [facility] [address] [address]- 5522 Jul, [facility] [id number] [address]- 7252 Jul, [facility] [id number] [address]- 0266 Jul, [facility] [id number] [place] [address] 74098- 2783 15 Jul, 2016 Recurrent UTI (urinary tract infection) N39.0 [facility] [address] [address]- 6557 14 Jul, 2016 [facility] [id number] [address]- 5996 Jun, Chronic pain G89.29 [facility] [id number] [place] [address] 95356- 9893 17 Jun, 2016 [facility] [id number] [place] [address] 12020- 5355 Jun, [facility] [address] 72441- 0534 May, Chronic pain G89.29 [facility] [id number] [place] [address] 29805- 8635 May, Weight loss R63.4 and Shortness of breath R06.02 [facility] [id number] [place] [address] 43668- 3490 May, Chronic pain G89.29 ; Weight loss R63.4 and Tobacco abuse Z72.0 [facility] [id number] [place] [address] 31046- 7355 May, [facility] [id number] [place] [address] 39032- 5496 May, Hypoxia R09.02 [facility] [id number] [place] [address] 54399- 3041 May, [facility] [id number] [place] [address] 06328- 6832 May, Pulmonary emphysema, unspecified emphysema type J43.9 [facility] [id number] [place] [address] 01166 -1020 May, [facility] [id number] [place] [address] 00158- 8400 May, [facility] [id number] [place] [address] 65918- 9996 May, [facility] [id number] [place] [address] 43795- 3624 May, Chronic pain G89.29 ; Encounter for immunization Z23 ; Right anterior knee pain M25.561 and Cough R05 [facility] [address] 15966- 9798 Apr, Chronic pain G89.29 [facility] [address] 33047- 5565 Apr, [facility] [address] 60284- 2756 Apr, Generalized anxiety disorder F41.1 and Depression, unspecified depression type F32.9 [facility] [address] 26864- 7863 Apr, Chronic pain G89.29 ; Hypokalemia E87.6 and Insomnia, unspecified type G47.00 [facility] [address] 86363- 4086 Apr, [facility] [address] 59511- 2042 Apr, Chronic pain G89.29 [facility] [address] 97913- 6656 Apr, [facility] [id number] [place] [address] 03139- 3521 Mar, [facility] [address] 70725- 1330 Mar, Insomnia, unspecified type G47.00 [facility] [address] 04615- 1748 Mar, Chronic pain G89.29 [facility] [address] 32820- 7330 Mar, [facility] [id number] [place] [address] 47661- 2411 Feb, [facility] [address] 70505- 2827 Feb, [facility] [id number] [address]- 0488 Feb, [facility] [id number] [place] [address] 82802- 8760 Feb, [facility] [id number] [place] [address] 62964- 0928 Feb, [facility] [id number] [place] [address] 36127- 2853 29 Jan, 2016 [facility] [id number] [place] [address] 77809- 3333 26 Jan, 2016 [facility] [id number] [place] [address] 41453- 2486 20 Jan, 2016 [facility] [id number] [place] [address] 60361- 7021 13 Jan, 2016 [facility] [id number] [place] [address] 38398- 9251 12 Jan, 2016 [facility] [id number] [place] [address] 58573- 2477 07 Jan, 2016 Chronic pain G89.29 [facility] [id number] [place] [address] 96436- 7499 Jan, Chronic pain G89.29 and Fibromyalgia M79.7 [facility] [id number] [place] [address] 64839- 7651 Dec, Depression, unspecified depression type F32.9 and Generalized anxiety disorder 300.02 [facility] [id number] [place] [address] 19280- 5504 Dec, Dysthymia F34.1 ; Insomnia, unspecified type G47.00 and Chronic pain G89.29 [facility] [id number], [place] [address]- 1367 Dec, Chronic pain G89.29 [facility] [id number], [place] [address]- 5711 Dec, Insomnia, unspecified type G47.00 [facility] [id number] [place] [address] 45698- 9510 Dec, Fibromyalgia M79.7 and Chronic pain G89.29 [facility] [id number] [place] [address] 09595- 3261 Dec, [facility] [id number] [place] [address] 79307- 2169 Dec, [facility] [id number] [place] [address] 61876- 3791 Dec, [facility] [id number] [place] [address] 93340- 0770 Dec, [facility] [id number] [place] [address] 99874- 5362 Dec, Chronic pain G89.29 [facility] [id number] [place] [address] 88884- 5526 Dec, [facility] [id number] [place] [address] 91394- 5157 Dec, [facility] [id number] [place] [address] 77490- 2643 Dec, [facility] [id number] [place] [address] 90292- 2545 Dec, Chronic pain G89.29 and Dysthymia F34.1 [facility] [id number] [place] [address] 92616- 5588 Nov, [facility] [id number] [place] [address] 19056- 2912 Nov, Hypokalemia E87.6 and Chronic pain G89.29 [facility] [id number] [place] [address] 29561- 5718 Nov, Back pain M54.9 and Pain in right knee M25.561 [facility] [id number] [place] [address] 08700- 0210 Nov, [facility] [id number] [place] [address] 59597 2546 Nov, Chronic pain G89.29 [facility] [id number] [place] [address] 37548- 5145 Nov, Chronic pain G89.29 ; Weight loss R63.4 ; Bone pain M89.8X9 and Insomnia, unspecified type G47.00 [facility] [id number] [place] [address] 53181- 5462 Nov, Chronic pain G89.29 [facility] [id number] [place] [address] 98156- 6215 Nov, Chronic pain G89.29 [facility] [id number] [place] [address] 98796- 6313 Oct, Chronic pain G89.29 [facility] [id number] [place] [address] 16087- 9705 Oct, UTI symptoms R39.9 [facility] [id number] [place] [address] 78724 2540 Oct, Chronic pain G89.29 [facility] [id number] [place] [address] 02211- 0211 Oct, Chronic pain G89.29 [facility] [id number] [place] [address] 95054 2548 Oct, Chronic pain G89.29 [facility] [id number] [place] [address] 78368- 3754 Oct, Right upper quadrant abdominal pain R10.11 [facility] [id number] [place] [address] 85195- 0583 Oct, Chronic pain G89.29 [facility] [address], [place] [address]- 0860 Oct, [facility] [id number] [place] [address] 04595- 8064 September, Chronic pain G89.29 [facility] [address], [place] [address]- 9744 September, Dysuria R30.0 and Urinary tract infection without hematuria , site unspecified N39.0 [facility] [id number] [place] [address] 52406- 6839 September, [facility] [id number] [place] [address] 52180- 2369 September, Dysuria R30.0 [facility] [id number] [place] [address] 78452- 9810 September, Chronic pain G89.29 [facility] [id number] [place] [address] 54750- 1889 September, Chronic pain G89.29 and Essential hypertension I10 [facility] [id number] [place] [address] 76547- 9431 September, [facility] [id number] [place] [address] 19284- 4644 September, [facility] [id number] [place] [address] 27194- 3672 September, [facility] [id number] [place] [address] 40674- 9383 Aug, UTI symptoms R39.9 [facility] [id number] [place] [address] 25271- 0061 Aug, Dysuria R30.0 [facility] [id number] [place] [address] 13306- 8865 Aug, [facility] [id number] [place] [address] 13231- 1060 Aug, [facility] [id number] [place] [address] 39055- 5534 Aug, [facility] [id number] [place] [address] 29376- 4024 Aug, Chronic pain G89.29 [facility] [id number] [place] [address] 69592- 4594 Aug, Dysthymia F34.1 [facility] [id number] [place] [address] 18268- 3353 Aug, Conjunctivitis, unspecified conjunctivitis type, unspecified laterality H10.9 [facility] [id number] [place] [address] 85561- 9584 31 Jul, 2015 Chronic pain G89.29 ; Back pain M54.9 ; Tobacco abuse Z72.0 and Weight decrease R63.4 [facility] [id number] [place] [address] 07007- 7969 30 Jul, 2015 [facility] [id number] [place] [address] 53565- 4737 30 Jul, 2015 [facility] [id number] [place] [address] 46174- 2064 24 Jul, 2015 Chronic pain G89.29 [facility] [id number] [place] [address] 51989- 2143 Jul, [facility] [id number] [place] [address] 17406- 4789 Jul, [facility] [id number] [place] [address] 50676- 6951 18 Jul, 2015 [facility] [id number] [place] [address] 67689- 3717 17 Jul, 2015 [facility] [id number] [place] [address] 83036- 6544 Jul, Chronic pain G89.29 [facility] [id number] [place] [address] 67434- 0163 Jul, Chronic pain G89.29 [facility] [id number] [place] [address] 67849- 7915 Jul, [facility] [id number] [place] [address] 66624- 3177 Jul, [facility] [id number] [place] [address] 38468- 5762 Jul, [facility] [id number] [place] [address] [phone]- 1313 Jul, [facility] [address] [address]46- [address] Jun, [facility] [id number] [place] [address] 43649- 9511 Jun, Depression, unspecified depression type F32.9 [facility] [id number] [place] [address] 01812- 6547 Jun, Pain in right knee M25.561 [facility] [address] 74946- 3315 Jun, Chronic pain G89.29 ; Back pain M54.9 ; Bone pain M89.8X9 and Weight loss R63.4 [facility] [id number] [place] [address] 57978- 1700 Jun, [facility] [id number] [place] [address] 62528- 2532 May, [facility] [id number] [place] [address] 75531- 4988 May, UTI symptoms R39.9 ; Pain in right knee M25.561 ; Right low back pain, with sciatica presence unspecified M54.5 ; Right foot pain M79.671 ; Hypokalemia E87.6 and Screening, lipid Z13.220 [facility] [address] [place] [address]- [address] May, [facility] [id number] [place] [address] 05572- 4222 May, [facility] [id number] [place] [address] [id number] [id number] Mar, [facility] [id number] [place] [address] 11331- 9246 Mar, [facility] [id number] [place] [address] 22872- 8780 Mar, Hypokalemia E87.6 [facility] [address] 71408- 5978 Mar, Pain in right leg M79.604 ; Encounter for immunization Z23 ; Pain in right knee M25.561 and Hypokalemia E87.6 [facility] [id number] [place] [address] 80396- 4095 Jan, [facility] [id number] [place] [address] 34387- 6123 Jan, [facility] [id number] [place] [address] 86277- 7898 Jan, Abdominal pain, generalized 789.07 [facility] [id number] [place] [address] 68589- 6013 Jan, Abdominal pain, generalized 789.07 [facility] [id number] [place] [address] 31220- 2985 Dec, [facility] [id number] [place] [address] 25696- 1826 Dec, [facility] [id number] [place] [address] 87155- 5644 Dec, [facility] [id number] [place] [address] 32280- 6158 Nov, Hallux valgus 735.0 and Hammertoe 735.4 [facility] [address] [facility] [id number] [address] 2216 Nov, [facility] [address] [id number] [address] 9396 Nov, Hallux valgus 735.0 and Hammer toe 735.4 [facility] [id number] [address] 7916 Oct, [facility] [address] [facility] [id number], [place] [address]- 8035 Oct, [facility] [id number] [place] [address] 46484- 3772 Oct, Pre-op evaluation V72.84 [facility] [id number] [address] 5228 Oct, [facility] [address] [id number] [address] 0418 Oct, [facility] [id number], [place] [address]- 7165 September, [facility] [id number], [place] [address]- 3651 September, [facility] [id number] [address] 1902 September, Hallux valgus (acquired) 735.0 and Other hammer toe ( acquired) 735.4 [facility] [id number], [place] [address]- 1344 Aug, [facility] [id number], [place] [address]- 7632 Aug, [facility] [address] [id number] [address] 0759 Jul, [facility] [address] [id number] [address]- 7402 Jul, [facility] [place] [facility] [address] [id number] [place] [address]- 2757 Jul, 2014 [facility] [place] [facility] [address] [id number] [place] [address]- 7067 Jul, 2014 [facility] [place] [facility] [address] [id number] [place] 8445 Jul, [facility] [place] [facility] [address] [id number] [place] [address]- 8305 Jul, [facility] [place] [facility] [address] [id number] [place] [address]- 3107 Jul, [facility] [place] [facility] [address] [id number] [place] [address]- 1684 Jul, [facility] [place] [facility] [address] [facility] [id number] [place] [address]- 9791 Jun, 2014 [facility] [place] [facility] [address] [id number] [place] [address]- 5519 Jun, 2014 [facility] [place] [facility] [address] [id number] [place] [address]- 5496 Jun, 2014 [facility] [place] [facility] [address] [facility] [id number] [place] [address]- 6059 Jun, 2014 [facility] [place] [facility] [address] [facility] [id number] [place] [address]- 5658 Jun, 2014 [facility] [place] [facility] [address] [id number], [place] [address]- 5192 Jun, 2014 [facility] [place] [facility] [address] [id number] [place] [address]- 2676 Jun, 2014 [facility] [place] [facility] [address] [facility] [id number] [place] [address]- 0466 Jun, 2014 [facility] [place] [facility] [address] [facility] [id number] [place] [address]- 5472 Jun, 2014 [facility] [place] [facility] [address] [id number] [place] [address]- 7024 Jun, [facility] [address] [id number] [place] [address]- 4423 May, [facility] [place] [facility] [address] [id number] [place] [address]- 9385 May, [facility] [address] [id number] [place] [address]- 1718 May, [facility] [address] [id number] [place] [address]- 9468 May, [facility] [address] [id number] [place] [address]- 5763 May, [facility] [address] [id number] [place] [address]- 1013 May, [facility] [address] [id number] [place] [address]- 8124 May, [facility] [address] [id number] [place] [address]- 6703 May, [facility] [address] [id number] [place] [address]- 0001 May, [facility] [address] [id number] [place] [address]- 9884 May, [facility] [place] [facility] [address] [id number] [place] [address]- 4320 May, [facility] [address] [id number] [place] [address]- 1596 May, [facility] [place] [facility] [address] [id number] [place] [address]- 7825 May, [facility] [place] [facility] [address] [id number] [place] [address]- 8316 May, [facility] [place] [facility] [address] [id number] [place] [address]- 2932 May, [facility] [place] [facility] [address] [id number] [place] [address]- 9128 May, [facility] [place] [facility] [address] [id number] [place] [address]- 8897 May, [facility] [place] [facility] [address] [id number] [place] [address]- 4436 May, [facility] [place] [facility] [address] [id number] [place] [address]- 4813 Apr, [facility] [place] [facility] [address] [id number] [place] [address]- 3682 Apr, [facility] [place] [facility] [address] [id number] [place] [address]- 5051 Apr, [facility] [place] [facility] [address] [id number] [place] [address]- 4160 Apr, [facility] [place] [facility] [address] [id number] [place] [address]- 2371 Apr, [facility] [place] [facility] [address] [id number] [place] [address]- 4495 Apr, [facility] [place] [facility] [address] [id number] [place] [address]- 3861 Apr, [facility] [place] [facility] [address] [id number] [place] [address]- 6046 Apr, [facility] [place] [facility] [address] [id number], [place] [address]- 1192 Apr, [facility] [place] [facility] [address] [id number] [place] [address]- 8943 Mar, [facility] [place] [facility] [address] [id number] [place] 8122 Mar, [facility] [place] [facility] [address] [id number] [place] 5775 Mar, [facility] [place] [facility] [address] [id number], [place] [address]- 2585 Mar, [facility] [place] [facility] [address] [id number] [place] [address]- 8548 Mar, [facility] [place] [facility] [address] [id number] [place] [address]- 8679 Feb, 2013 [facility] [place] [facility] [address] [id number] [place] [address]- 7992 Feb, 2013 [facility] [place] [facility] [address] [id number] [place] [address]- 6912 Feb, [facility] [place] [facility] [address] [id number] [place] [address]- 6884 Feb, 2013 [facility] [place] [facility] [address] [id number] [place] [address]- 0828 Feb, 2013 [facility] [place] [facility] [address] [id number], [place] [address]- 4436 Feb, 2013 [facility] [place] [facility] [address] [id number], [place] [address]- 8326 Feb, 2013 [facility] [place] [facility] [address] [facility] [id number], [place] [address]- 0278 Feb, 2013 [facility] [place] [facility] [address] [facility] [id number], [place] [address]- 3422 Feb, 2013 [facility] [place] [facility] [address] [id number], [place] [address]- 9949 Feb, 2013 [facility] [place] [facility] [address] [id number], [place] [address]- 6717 Feb, 2013 [facility] [place] [facility] [address] [id number], [place] [address]- 7464 Feb, [facility] [place] [facility] [address] [facility] [id number], [place] [address]- 0931 Feb, 2013 [facility] [place] [facility] [address] [facility] [id number], [place] [address]- 8795 Feb, 2013 [facility] [place] [facility] [address] [id number] [place] [address]- 6887 07 Feb, 2013 [facility] [place] [facility] [address] [id number] [place] [address]- 2376 07 Feb, 2014 [facility] [place] [facility] [address] [id number] [place] [address]- 5336 23 Jan, 2013 [facility] [place] [facility] [address] [id number] [place] [address] 2546 23 Jan, 2013 [facility] [place] [facility] [address] [id number] [place] [address]- 3742 20 Jan, 2013 [facility] [place] [facility] [address] [id number] [place] [address]- 7096 19 Jan, 2013 [facility] [place] [facility] [address] [id number] [place] [address]- 0773 11 Jan, 2014 [facility] [place] [facility] [address] [id number] [place] [address]- 1815 Jan, 2013 [facility] [place] [facility] [address] [id number] [place] [address]- 7558 Jan, [facility] [place] [facility] [address] [id number] [place] [address]- 4986 Jan, [facility] [place] [facility] [address] [id number] [place] [address]- 1306 Dec, [facility] [place] [facility] [address] [id number] [place] [address]- 6603 Dec, [facility] [place] [facility] [address] [id number] [place] [address]- 8147 Nov, [facility] [place] [facility] [address] [id number] [place] [address]- 0336 Nov, [facility] [place] [facility] [address] [id number] [place] [address]- 2303 Nov, [facility] [place] [facility] [address] [id number] [place] [address]- 6095 Nov, [facility] [place] [facility] [address] [id number] [place] [address]- 0511 Nov, [facility] [place] [facility] [address] [id number] [place] [address]- 3987 Nov, [facility] [place] [facility] [address] [id number] [place] [address]- 9387 Nov, [facility] [place] [facility] [address] [id number] [place] [address]- 7288 Nov, [facility] [place] [facility] [address] [id number] [place] [address]- 1768 Nov, [facility] [place] [facility] [address] [id number] [place] [address]- 0100 Oct, [facility] [place] [facility] [address] [id number] [place] [address]- 9495 Oct, [facility] [place] [facility] [address] [id number] [place] [address]- 4937 Oct, [facility] [place] [facility] [address] [id number] [place] [address]- 1934 Oct, [facility] [place] [facility] [address] [id number] [place] [address]- 5558 Oct, [facility] [place] [facility] [address] [id number] [place] [address]- 0325 Oct, [facility] [place] [facility] [address] [id number] [place] [address]- 8811 September, [facility] [place] [facility] [address] [id number] [place] [address]- 5187 September, [facility] [place] [facility] [address] [id number] [place] [address]- 5913 September, [facility] [place] [facility] [address] [id number] [place] [address]- 3043 September, [facility] [place] [facility] [address] [id number] [place] [address]- 2025 September, [facility] [address] [id number] [place] 2038 September, [facility] [place] [facility] [address] [id number] [place] 5985 September, [facility] [address] [id number] [place] [address]- 0228 September, [facility] [place] [facility] [address] [id number] [place] [address]- 3099 September, [facility] [place] [facility] [address] [id number] [place] 1506 September, [facility] [place] [facility] [address] [id number] [place] [address]- 2796 September, [facility] [address] [id number] [place] [address]- 1078 September, [facility] [place] [facility] [address] [id number] [place] [address]- 5452 September, [facility] [place] [facility] [address] [id number] [place] [address]- 1641 September, [facility] [address] [id number] [place] [address]- 9994 September, [facility] [place] [facility] [address] [id number] [place] [address]- 9812 September, [facility] [place] [facility] [address] [id number] [place] [address]- 2139 September, [facility] [place] [facility] [address] [id number] [place] [address]- 4590 September, [facility] [place] [facility] [address] [id number] [place] [address]- 9089 September, [facility] [place] [facility] [address] [id number] [place] [address]- 2006 September, [facility] [place] [facility] [address] [id number] [place] [address]- 0793 Aug, [facility] [place] [facility] [address] [id number] [place] [address]- 0900 Aug, [facility] [place] [facility] [address] [id number] [place] [address]- 8978 Aug, [facility] [place] [facility] [address] [id number] [place] [address]- 6751 Aug, [facility] [place] [facility] [address] [id number] [place] [address]- 3311 Aug, [facility] [place] [facility] [address] [id number] [place] [address]- 3144 Aug, [facility] [place] [facility] [address] [id number] [place] [address]- 5333 Aug, [facility] [place] [facility] [address] [id number] [place] [address]- 8444 Aug, [facility] [place] [facility] [address] [id number] [place] [address]- 1252 Aug, [facility] [place] [facility] [address] [id number] [place] [address]- 6539 Aug, [facility] [place] [facility] [address] [id number] [place] [address]- 5396 Aug, [facility] [place] [facility] [address] [id number] [place] [address]- 8598 Aug, [facility] [place] [facility] [address] [id number] [place] [address]- 1980 Aug, [facility] [place] [facility] [address] [id number] [place] [address]- 1144 Aug, [facility] [place] [facility] [address] [id number] [place] [address]- 2337 Aug, [facility] [place] [facility] [address] [id number] [place] [address]- 2546 Jul, [facility] [place] [facility] [address] [id number] [place] [address]- 5776 31 Jul, 2013 [facility] [place] [facility] [address] [id number] [place] [address]- 9241 Jul, [facility] [place] [facility] [address] [id number] [place] [address]- 9448 Jul, [facility] [place] [facility] [address] [id number] [place] [address]- 2425 Jul, [facility] [place] [facility] [address] [id number] [place] [address]- 8474 Jul, [facility] [place] [facility] [address] [id number] [place] [address]- 3324 Jul, [facility] [place] [facility] [address] [id number] [place] [address]- 1268 Jul, [facility] [place] [facility] [address] [id number] [place] [address]- 1622 Jul, [facility] [place] [facility] [address] [id number] [place] [address]- 6591 Jul, [facility] [place] [facility] [address] [id number] [place] [address]- 0943 Jul, [facility] [place] [facility] [address] [id number] [place] [address]- 8563 Jul, [facility] [place] [facility] [address] [id number] [place] [address]- 1281 Jul, [facility] [place] [facility] [address] [id number] [place] [address]- 1853 Jul, [facility] [place] [facility] [address] [id number] [place] [address]- 9953 Jul, [facility] [place] [facility] [address] [id number] [place] [address]- 6268 18 Jun, 2013 [facility] [place] [facility] [address] [id number] [place] [address]- 6481 18 Jun, 2013 [facility] [place] [facility] [address] [id number] [place] [address]- 9656 Jun, [facility] [place] [facility] [address] [id number] [place] [address]- 6426 Jun, [facility] [place] [facility] [address] [id number] [place] [address]- 7016 Jun, [facility] [place] [facility] [address] [id number] [place] [address]- 9845 Jun, [facility] [place] [facility] [address] [id number] [place] [address]- 1465 May, [facility] [place] [facility] [address] [id number] [place] [address]- 1618 May, [facility] [place] [facility] [address] [id number] [place] [address]- 2021 May, [facility] [place] [facility] [address] [id number] [place] [address]- 0297 May, [facility] [place] [facility] [address] [id number] [place] [address]- 6915 May, [facility] [place] [facility] [address] [id number] [place] [address]- 2623 May, [facility] [place] [facility] [address] [id number] [place] [address]- 9300 May, [facility] [place] [facility] [address] [id number] [place] [address]- 3469 May, [facility] [place] [facility] [address] [id number] [place] [address]- 1039 May, [facility] [place] [facility] [address] [id number] [place] [address]- 6088 May, [facility] [place] [facility] [address] [id number] [place] [address]- 0916 May, [facility] [place] [facility] [address] [id number] [place] [address]- 8086 May, [facility] [place] [facility] [address] [id number] [place] [address]- 0760 May, [facility] [place] [facility] [address] [id number] [place]058 May, [facility] [place] [facility] [address] [id number] [place] [address]- 0094 May, [facility] [place] [facility] [address] [id number] [place] [address]- 1350 Apr, [facility] [place] [facility] [address] [id number] [place] [address]- 1997 Apr, [facility] [place] [facility] [address] [id number] [place] [address]- 0489 Apr, [facility] [place] [facility] [address] [id number] [place] [address]- 6446 Apr, [facility] [place] [facility] [address] [id number] [place] [address]- 9593 Apr, [facility] [place] [facility] [address] [id number] [place] [address]- 9589 Apr, [facility] [place] [facility] [address] [id number] [place] [address]- 3266 Apr, [facility] [place] [facility] [address] [id number], [place] [address]- 5307 Apr, [facility] [place] [facility] [address] [id number] [place] [address] Apr, [facility] [place] [facility] [address] [id number] [place] [address] Apr, [facility] [place] [facility] [address] [id number] [place] [address] Mar, [facility] [place] [facility] [address] [id number] [place] [address] Mar, [facility] [address] [id number] [place] [address] Mar, [facility] [address] [id number] [place] [address] Mar, [facility] [address] [id number] [place] [address] Mar, [facility] [address] [id number] [place] [address]83 Mar, [facility] [address] [id number] [place] [address] Mar, [facility] [address] [id number] [place] [address] Mar, [facility] [address] [id number] [place] [address] Mar, [facility] [address] [id number] [place] [address]26 Mar, [facility] [address] [id number] [place] [address] Mar, [facility] [address] [id number] [place] [address] Mar, [facility] [address] [id number] [place] [address] Mar, [facility] [address] [id number], [place] [address] 19 Mar, 2013 [facility] [place] [facility] [address] [id number] [place] [address] 18 Mar, 2013 [facility] [place] [facility] [address] [id number] [place] [address] 98[address] 18 Mar, 2013 [facility] [address] [id number] [place] [address] 14 Mar, 2013 [facility] [place] [facility] [address] [id number] [place] [address] 2731 14 Mar, 2013 [facility] [place] [facility] [address] [id number] [place] [address] 12 Mar, 2013 [facility] [place] [facility] [address] [id number] [place] [address] 9514 12 Mar, 2013 [facility] [place] [facility] [address] [id number] [place] [address] Mar, [facility] [place] [facility] [address] [id number] [place] [address] 38[address] Mar, [facility] [place] [facility] [address] [id number] [place] [address]75 Mar, [facility] [place] [facility] [address] [id number] [place] [address] 8427 Feb, [facility] [place] [facility] [address] [id number] [place] [address] 76[address] 18 Feb, 2013 [facility] [place] [facility] [address] [id number] [place] [address] 1376 Feb, [facility] [place] [facility] [address] [id number], [place] [address] 16 Feb, 2013 [facility] [place] [facility] [address] [id number], [place] [address]68 15 Feb, 2013 [facility] [place] [facility] [address] [id number], [place] [address] 09 Feb, 2013 [facility] [place] [facility] [address] [id number], [place] [address] Feb, [facility] [place] [facility] [address] [id number], [place] [address] 07 Feb, 2013 [facility] [place] [facility] [address] [id number] [address] 04 Feb, 2013 [facility] [place] [facility] [address] [id number], [place] [address] 03 Feb, 2013 [facility] [place] [facility] [address] [id number] [place] [address]68 30 Jan, 2013 [facility] [place] [facility] [address] [id number] [place] [address] 26 Jan, 2013 [facility] [place] [facility] [address] [id number] [place] [address]683 24 Jan, 2013 [facility] [place] [facility] [address] [id number] [place] [address] 3967 23 Jan, 2013 [facility] [place] [facility] [address] [id number] [place] [address] 17 Jan, 2013 [facility] [place] [facility] [address] [id number] [place] [address]279 Dec, [facility] [place] [facility] [address] [id number] [place] [address] 98[address] Dec, [facility] [place] [facility] [address] [id number] [place] [address]13 Dec, [facility] [place] [facility] [address] [id number] [place] [address]- [address]84 Dec, [facility] [place] [facility] [address] [id number] [place] [address] 3213 Dec, [facility] [place] [facility] [address] [id number] [place] [address] 1993 Dec, [facility] [place] [facility] [address] [id number] [place] [address] 4516 Dec, [facility] [place] [facility] [address] [id number] [place] [address]703 Nov, [facility] [place] [facility] [address] [id number] [place] [address] Nov, [facility] [place] [facility] [address] [id number] [place] [address] 4038 15 Nov, 2012 [facility] [place] [facility] [address] [id number] [place] [address]- [address]46 05 Nov, 2012 [facility] [address] [id number] [place] [address] Nov, [facility] [address] [id number] [place] [address] Oct, [facility] [address] [id number] [place] [address] 9446 Oct, [facility] [address] [id number] [place] [address] 2546 Oct, [facility] [address] [id number] [place] [address] September, [facility] [address] [id number] [place] [address]- [address] September, [facility] [address] [id number] [place] [address]696 September, [facility] [address] [id number] [place] [address] 9314 September, [facility] [address] [id number] [place] [address]396 September, [facility] [address] [id number] [place] [address]- 7562 September, [facility] [address] [id number] [place] [address] September, [facility] [address] [id number] [place] [address] Aug, [facility] [place] [facility] [address] [id number] [place] [address] Aug, [facility] [place] [facility] [address] [id number] [place] [address] Aug, [facility] [address] [id number] [place] [address] Jul, [facility] [place] [facility] [address] [id number] [place] [address] 4667 27 Jul, 2012 [facility] [place] [facility] [address] [id number] [place] [address] 26 Jul, 2012 [facility] [place] [facility] [address] [facility] [id number] [place] [address]90 20 Jul, 2012 [facility] [place] [facility] [address] [id number] [place] [address] 5549 18 Jul, 2012 [facility] [place] [facility] [address] [id number] [place] [address] 1874 18 Jul, 2012 [facility] [place] [facility] [address] [id number] [place] [address] 8105 13 Jul, 2012 [facility] [place] [facility] [address] [facility] [id number] [place] [address]- 6978 28 Jun, 2012 [facility] [place] [facility] [address] [facility] [id number] [place] [address] 4166 27 Jun, 2012 [facility] [place] [facility] [address] [facility] [id number] [place] [address] 1640 Jun, [facility] [place] [facility] [address] [facility] [id number] [place] [address] 8191 20 Jun, 2012 [facility] [place] [facility] [address] [facility] [id number] [place] [address]- 7620 15 Jun, 2012 [facility] [place] [facility] [address] [facility] [id number] [place] [address]- 5319 15 Jun, 2012 [facility] [place] [facility] [address] [facility] [id number] [place] [address]- 2707 13 Jun, 2012 [facility] [place] [facility] [address] [facility] [id number] [place] [address] 12 Jun, 2012 [facility] [place] [facility] [address] [facility] [id number] [place] [address]- 5824 Jun, [facility] [place] [facility] [address] [id number] [place] [address] 2546 Jun, [facility] [address] [id number] [place] [address] 3026 May, [facility] [place] [facility] [address] [id number] [place] [address]- 2546 May, [facility] [place] [facility] [address] [id number] [place] [address]- 4726 May, [facility] [place] [facility] [address] [id number] [place] [address]- 2546 May, [facility] [place] [facility] [address] [id number] [place] [address]- 7826 May, [facility] [place] [facility] [address] [id number] [place] [address] 2546 May, [facility] [place] [facility] [address] [id number] [place] [address] Apr, [facility] [address] [id number] [place] [address]- 6[address] 31 Apr, 2012 [facility] [place] [facility] [address] [id number] [place] [address] 2544 Apr, [facility] [place] [facility] [address] [id number] [place] [address] 7858 Apr, [facility] [place] [facility] [address] [id number] [place] [address]- 1486 Apr, [facility] [place] [facility] [address] [id number] [place] [address]- 2546 Apr, [facility] [place] [facility] [address] [id number] [place] [address] 2546 Apr, [facility] [place] [facility] [address] [id number] [place] [address] 2546 29 Mar, 2012 [facility] [place] [facility] [address] [id number] [place] [address] 4[address] Mar, [facility] [place] [facility] [address] [id number] [place] [address]- 1183 Mar, [facility] [place] [facility] [address] [id number] [place] [address]- 8523 Mar, [facility] [place] [facility] [address] [id number] [place] [address]- 8444 Mar, [facility] [place] [facility] [address] [id number] [place] [address]- 2503 Mar, [facility] [place] [facility] [address] [id number] [place] [address]- 5730 Mar, [facility] [place] [facility] [address] [id number] [place] [address]- 3076 Mar, [facility] [place] [facility] [address] [id number] [place] [address] 8007 Mar, [facility] [place] [facility] [address] [id number] [place] [address]- 5471 Mar, [facility] [place] [facility] [address] [id number] [place] [address]- 7689 Mar, [facility] [place] [facility] [address] [id number] [place] [address]- 6106 Mar, [facility] [place] [facility] [address] [id number], [place] [address] Mar, [facility] [place] [facility] [address] [id number], [place] [address] Mar, [facility] [place] [facility] [address] [id number] [place] [address]- 8043 Mar, [facility] [place] [facility] [address] [id number], [place] [address] 3569 Mar, [facility] [place] [facility] [address] [id number], [place] [address]- 1195 Mar, [facility] [place] [facility] [address] [id number] [place] [address]- 2777 25 Feb, 2011 [facility] [place] [facility] [address] [id number] [place] [address]- 6801 25 Feb, 2011 [facility] [place] [facility] [address] [id number] [place] [address]- 2896 17 Feb, 2011 [facility] [place] [facility] [address] [id number] [place] [address]- 1026 17 Feb, 2011 [facility] [place] [facility] [address] [id number] [place] [address]- 6116 16 Feb, 2011 [facility] [place] [facility] [address] [id number] [place] [address] 16 Feb, 2011 [facility] [place] [facility] [address] [id number] [place] [address]- 8790 Feb, [facility] [place] [facility] [address] [id number] [place] [address]- 9311 Feb, [facility] [place] [facility] [address] [id number] [place] [address]- 0770 05 Feb, 2012 [facility] [place] [facility] [address] [id number] [place] [address]- 3863 04 Feb, 2012 [facility] [place] [facility] [address] [facility] [id number] [place] [address]- 1996 02 Feb, 2012 [facility] [place] [facility] [address] [id number] [place] [address]- 3272 27 Sep, 2011 [facility] [place] [facility] [address] [id number] [place] [address]- 2540 25 Sep, 2011 [facility] [place] [facility] [address] [id number] [place] [address]- 2356 13 Sep, 2011 [facility] [place] [facility] [address] [id number] [place] [address]- 2546 12 Sep, 2011 [facility] [place] [facility] [address] [id number] [place] [address] Jan, [facility] [place] [facility] [address] [id number] [place] [address]- 4822 Dec, [facility] [place] [facility] [address] [id number] [place] [address]- 7968 Dec, [facility] [place] [facility] [address] [id number] [place] [address]- 3528 Dec, [facility] [place] [facility] [address] [id number] [place] [address]- 6169 Dec, [facility] [place] [facility] [address] [id number] [place] [address]- 3400 Dec, [facility] [place] [facility] [address] [id number] [place] [address]- 2706 Dec, [facility] [place] [facility] [address] [id number] [place] [address]- 0567 Dec, [facility] [place] [facility] [address] [id number] [place] [address]- 4015 Dec, [facility] [place] [facility] [address] [id number] [place] [address]- 0434 Nov, [facility] [place] [facility] [address] [id number] [place] [address]- 7911 Nov, [facility] [place] [facility] [address] [id number] [place] [address]- 7046 Nov, [facility] [place] [facility] [address] [id number] [place] [address]- 0202 Nov, [facility] [place] [facility] [address] [id number] [place] [address]- 1960 Nov, [facility] [place] [facility] [address] [id number] [place] [address]- 6223 Oct, [facility] [place] [facility] [address] [id number] [place] [address]- 9540 Oct, [facility] [place] [facility] [address] [id number] [place] [address]- 2546 September, [facility] [address] [id number] [place] [address] September, [facility] [place] [facility] [address] [id number] [place] [address]- 4136 September, [facility] [place] [facility] [address] [id number] [place] [address]- 2817 September, [facility] [place] [facility] [address] [id number] [place] [address]- 7832 September, [facility] [place] [facility] [address] [id number] [place] [address]- 7378 September, [facility] [place] [facility] [address] [id number] [place] [address]- 4429 September, [facility] [address] [id number] [place] [address]- 1372 September, [facility] [place] [facility] [address] [id number] [place] [address]- 2259 September, [facility] [place] [facility] [address] [id number] [place] [address] September, [facility] [place] [facility] [address] [id number] [place] [address]- 5853 September, [facility] [place] [facility] [address] [id number] [place] [address]- 5525 September, [facility] [place] [facility] [address] [id number] [place] [address]- 2826 September, [facility] [place] [facility] [address] [id number] [place] [address]- 6798 September, [facility] [place] [facility] [address] [id number] [place] [address]- 9277 Aug, [facility] [place] [facility] [address] [id number] [place] [address]- 8791 Aug, [facility] [place] [facility] [address] [id number] [place] [address]- 2546 13 Aug, 2011 [facility] [address] [id number] [place] [address]- 3146 11 Aug, 2011 [facility] [address] [id number] [place] [address]- 2546 23 Jul, 2011 [facility] [address] [id number] [place] [address]- 2376 13 Jul, 2011 [facility] [address] [id number] [place] [address]- 2546 13 Jul, 2011 [facility] [address] [id number] [place] [address]- 9826 28 Jun, [address] [facility] [address] [id number] 26 Jun, 2011 [facility] [address] [id number] [place] [address]- 1016 13 Jun, 2011 [facility] [address] [id number] [place] [address]- 3328 10 Jun, 2011 [facility] [address] [id number] [place] [address]- 3396 07 Jun, [address] [facility] [address] [id number] [place] [address]- 4206 07 Jun, 2011 [facility] [address] [id number] [place] [address]- 2546 03 Jun, 2011 [facility] [address] [id number] [place] [address]- 7966 Jun, [facility] [place] [facility] [address] [id number] [place] [address]- 5546 May, [facility] [place] [facility] [address] [id number] [place] [address]- 2546 May, [facility] [place] [facility] [address] [id number], [place] [address]- 2457 May, [facility] [address] [id number] [place] [address]- 5486 May, [facility] [place] [facility] [address] [id number] [place] [address]- 1812 May, [facility] [place] [facility] [address] [id number] [place] [address]- 5296 May, [facility] [place] [facility] [address] [id number] [place] [address]- 3215 May, [facility] [place] [facility] [address] [id number] [place] [address]- 3439 May, [facility] [place] [facility] [address] [id number] [place] [address]- 2309 May, [facility] [place] [facility] [address] [id number] [place] [address]- 5346 May, [facility] [place] [facility] [address] [id number] [place] [address]- 7752 May, [facility] [place] [facility] [address] [id number] [place] [address]- 1825 May, [facility] [place] [facility] [address] [id number] [place] [address]- 9420 May, [facility] [place] [facility] [address] [id number], [place] [address]- 7159 May, [facility] [place] [facility] [address] [id number], [place] [address]- 3240 30 Apr, 2011 [facility] [place] [facility] [address] [id number] [place] [address]- 7167 16 Apr, 2011 [facility] [place] [facility] [address] [id number] [place] [address]- 9907 05 Apr, 2011 [facility] [place] [facility] [address] [id number] [place] [address]- 5474 17 Mar, 2011 [facility] [place] [facility] [address] [id number] [place] [address]- 0739 Mar, [facility] [address] [id number] [place] [address]- 3156 31 Feb, 2011 [facility] [place] [facility] [address] [id number] [place] [address]- 6336 26 Feb, 2011 [facility] [place] [facility] [address] [id number] [place] [address]- 8386 21 Feb, 2011 [facility] [place] [facility] [address] [id number] [place] [address] 2541 20 Feb, 2011 [facility] [place] [facility] [address] [id number] [place] [address]- 8980 13 Feb, 2011 [facility] [place] [facility] [address] [id number] [place] [address]- 9817 28 Apr, 2010 [facility] [place] [facility] [address] [id number] [place] [address]- 6733 22 Apr, 2010 [facility] [place] [facility] [address] [id number] [place] [address]- 6213 16 Apr, 2010 [facility] [place] [facility] [address] [id number] [place] [address]- 6604 15 Apr, 2010 [facility] [place] [facility] [address] [facility] [id number] [place] [address]- 3247 15 Apr, 2010 [facility] [place] [facility] [address] [id number] [place] [address]- 3809 Apr, [facility] [place] [facility] [address] [id number] [place] [address] 254 24 Mar, 2010 [facility] [place] [facility] [address] [id number] [place] [address] 2546 17 Mar, 2010 [facility] [place] [facility] [address] [id number] [place] [address]- 2546 17 Mar, 2010 [facility] [place] [facility] [address] [id number] [place] [address]- 0677 28 Feb, 2010 [facility] [address] [id number] [address]- 45[address] Feb, [facility] [id number], [place] [address]- 3736 Feb, [facility] [id number], [place] [address]- 8817 Feb, [facility] [id number], [place] [address]- 0205 Dec, [facility] [id number], [place] [address]- 1675 Dec, [facility] [id number], [place] [address]- 3804 Oct, [facility] [id number] 4110 Mar, [facility] [id number], [place] [address]- 3831 Mar, [facility] [address] [id number] [address]- 7190 September, IMMUNIZATIONS No Known Immunizations SOCIAL HISTORY Never Assessed REASON FOR VISIT Xray (walk-in) MHill RT(R) PLAN OF CARE VITAL SIGNS MEDICATIONS Unknown Medications RESULTS Name Result Date Reference Range Xray : Chest (IN HOUSE) 2017-03-09 PROCEDURES Procedure Date Ordered Result Body Site CHEST X-RAY Mar 09, 2017 INSTRUCTIONS MEDICATIONS ADMINISTERED No Known Medications [...]
--- OUTSIDE RECORDS SUMMARY | 2017-11-27 15:25 | XMS REPORT ---
Author Author VALERIE ZAVALA [facility] Address [address] [place] [address] Care Team Providers Care Yarn Weigher Name Role Phone VALERIE ZAVALA Unavailable PROBLEMS Type Condition ICD9-CM Code HOQ50-AQ Code Onset Dates Condition Status SNOMED Code Problem Generalized anxiety disorder F41.1 Active 53723900 Problem Hypokalemia E87.6 Active 217580023 Problem Right low back pain, with sciatica presence unspecified M54.5 Active 524025560 Problem Post-traumatic stress disorder, chronic F43.12 Active 27805180 Problem Pain in right knee M25.561 Active 19089312 Problem Gastroesophageal reflux disease without esophagitis K21.9 Active 929552618 Problem UTI symptoms R39.9 Active 21689967 Problem Essential hypertension I10 Active 68200482 Problem Anxiety F41.9 Active 01010509 Problem Neuropathy G62.9 Active 005120533 Problem Other chronic pain G89.29 Active 24218846 Problem Generalized abdominal pain R10.84 Active 174161774 Problem Chronic pain G89.29 Active 19918048 Problem Back pain M54.9 Active 182922812 Problem Right foot pain M79.671 Active 44285244 Problem Panic attacks F41.0 Active 288566198 Problem Other emphysema J43.8 Active 58529026 Problem Kidney stones N20.0 Active 05214944 Problem Renal calculus, right N20.0 Active 03734697 Problem Weight decrease R63.4 Active 002724691 Problem Tobacco abuse Z72.0 Active 38442387 Problem Bone pain M89.8X9 Active 98728838 Problem Depression, unspecified depression type F32.9 Active 60305716 Problem Insomnia, unspecified type G47.00 Active 579299157 Problem Pulmonary emphysema, unspecified emphysema type J43.9 Active 51696656 Problem Right upper quadrant abdominal pain R10.11 Active 010629214 Problem Weight loss R63.4 Active [id number] ALLERGIES No Information ENCOUNTERS Encounter Location Date Diagnosis [facility] [id number] [place] [address] 41162- 7231 September, [facility] [id number] [place] [address] 06422- 6644 September, RLQ abdominal pain R10.31 ; Low back pain M54.5 and Other chronic pain G89.29 [facility] [address] 04014- 6341 Aug, Medicare welcome exam Z00.00 [facility] [id number] [place] [address] 91531- 0913 Aug, [facility] [address] 39206- 6351 Aug, Acute pyelonephritis N10 and Medicare welcome exam Z00.00 [facility] [id number] [place] [address] 83001 -0736 Aug, Dysuria R30.0 and Acute pyelonephritis N10 [facility] [id number] [place] [address] 78431- 2739 Aug, [facility] [id number] [place] [address] 04858- 0426 Aug, [facility] [id number] [place] [address] 42957- 9874 Aug, [facility] [id number] [place] [address] 10089- 3058 Aug, [facility] [id number] [place] [address] 16589- 8124 Jul, [facility] [id number] [place] [address] 66330- 8582 Jul, Renal calculus, right N20.0 and Medicare welcome exam Z00.00 [facility] [id number] [place] [address] 84437 -3103 Jul, Dysuria R30.0 and Renal calculus, right N20.0 [facility] [id number] [place] [address] 04678- 5757 Jul, Medicare welcome exam Z00.00 [facility] [id number] [place] [address] 26800- 0256 Jun, Gastroesophageal reflux disease without esophagitis K21.9 and Generalized abdominal pain R10.84 [facility] [id number] [place] [address] 87861- 1976 Jun, Medicare welcome exam Z00.00 [place] [address] 06177- 1838 Jun, [facility] [id number] [place] [address] 03935- 3615 Jun, Medicare welcome exam Z00.00 and Encounter for screening mammogram for malignant neoplasm of breast Z12.31 [facility] [id number] [place] [address] 35881- 4421 Jun, Chronic pain G89.29 [facility] [id number] [place] [address] 39489- 7205 May, [facility] [id number] [place] [address] 94312- 9598 May, Pelvic pain R10.2 [facility] [id number] [place] [address] 78515- 8337 May, Pelvic pain R10.2 [facility] [id number] [place] [address] 38809 -0359 May, Renal calculus, right N20.0 [facility] [id number] [place] [address] 84797- 7068 May, Hematuria, unspecified type R31.9 and Nephrolithiasis N20.0 [facility] [address] [place] [address] -[address]66 May, Dysuria R30.[address] [facility] [id number] [place] [address] 96634- 4726 May, [facility] [id number] [place] [address] 38313 -7971 May, Abdominal pain R10.9 and Kidney stone N20.0 [facility] [id number] [place] [address] 75512- 8246 May, [facility] [id number] [place] [address] 16625- 1549 May, Chronic pain G89.29 and Panic attacks F41.0 [facility] [id number] [place] [address] 33704- 3864 May, Urinary tract infection without hematuria, site unspecified N39.0 [facility] [id number] [place] [address] 35303- 6580 Apr, Right lower quadrant abdominal pain R10.31 and Abnormal serum lipase level R74.8 [facility] [id number] [place] [address] 51129- 3797 Apr, Recurrent urinary tract infection N39.0 [facility] [id number] [place] [address] 08462- 5892 Apr, UTI symptoms R39.9 ; Recurrent urinary tract infection N39.0 and Pelvic pain R10.2 [facility] [id number] [place] [address] 45563- 5496 Apr, Chronic pain G89.29 and Panic attacks F41.0 [facility] [id number] [place] [address] 94847- 4424 Apr, Dysuria R30.0 [facility] [id number] [place] [address] 45734- 0275 Apr, [facility] [id number] [place] [address] 65680- 9653 Apr, Dysuria R30.0 and Urinary tract infection without hematuria , site unspecified N39.0 [facility] [id number] [place] [address] 62882- 2257 Mar, UTI symptoms R39.9 [place] [id number] [place] [address] 82424- 6604 Mar, [place] [id number] [place] [address] 57580- 9400 Mar, Panic attacks F41.0 and Chronic pain G89.29 [place] [address] 33649- 7223 Mar, [place] [id number] [place] [address] 65412- 2298 Mar, Dysuria R30.0 [facility] [facility] [id number] [place] [address] 14978- 5571 Mar, Dysuria R30.0 [facility] [facility] [id number] [place] [address] 85458- 5218 Feb, Chronic pain G89.29 ; Shortness of breath R06.02 ; Weight loss R63.4 ; Encounter for immunization Z23 ; Bone pain M89.8X9 ; Right anterior knee pain M25.561 and Cough R05 [facility] [id number] [place] [address] 44737- 5413 Feb, Shortness of breath R06.02 [place] [id number] [place] [address] 20502- 1400 Feb, [place] [id number] [place] [address] 60753- 6406 Feb, Panic attacks F41.0 and Chronic pain G89.29 [place] [id number] [place] [address] 04880- 6127 Feb, [place] [id number] [place] [address] 30305- 8197 Feb, Panic attacks F41.0 ; Shortness of breath R06.02 and Encounter for immunization Z23 [place] [id number] [place] [address] 81990- 2393 27 Jan, 2017 [place] [address] 50249- 0656 15 Jan, 2017 Anxiety F41.9 and Chronic pain G89.29 [place] [address] 78479- 7004 Dec, Anxiety F41.9 and Chronic pain G89.29 [place] [address] 96803- 8614 Nov, Chronic pain G89.29 [place] [address] 76838- 4570 Nov, Anxiety F41.9 [place] [address] 70580- 6435 Nov, Chronic pain G89.29 ; Essential hypertension I10 and Other emphysema J43.8 [place] [address] 78081- 5401 Oct, Anxiety F41.9 [place] [id number] [place] [address] 61322- 8690 Oct, [place] [address] 68644- 3233 Oct, Chronic pain G89.29 [place] [address] 14551- 1050 September, Recurrent UTI N39.0 ; Neuropathy G62.9 and Anxiety F41.9 [place] [id number] [place] [address] 15388- 3976 September, [place] [address] 88401- 0266 September, Chronic pain G89.29 [facility] [address] [address]- 0753 September, [facility] [address] [address]- 5757 Aug, Post-traumatic stress disorder, chronic F43.12 ; Chronic urinary tract infection N39.0 ; Gastroesophageal reflux disease without esophagitis K21.9 ; Chronic pain G89.29 ; Essential hypertension I10 and Tobacco abuse Z72.0 [facility] [address] [address] Aug, [facility] [id number] [place] [address] 68339- 2050 Aug, Chronic pain G89.29 [facility] [address] [address]- 1103 Aug, Insomnia, unspecified type G47.00 [facility] [address] [address]- 5286 Aug, [facility] [id number] [place] [address] 33163- 7668 24 Jul, [address]29 [facility] [address] [address]- 3288 Jul, [facility] [address] [address]- 7778 Jul, [facility] [address] [address]- 2697 Jul, [facility] [id number] [place] [address] 57738- 8211 15 Jul, 2016 Recurrent UTI (urinary tract infection) N39.0 [facility] [address] [address]- 2526 14 Jul, 2016 [facility] [id number] [address]- 2738 Jun, Chronic pain G89.29 [facility] [id number] [place] [address] 86096- 6811 17 Jun, 2016 [facility] [id number] [place] [address] 52153- 8789 Jun, [facility] [address] 59994- 7671 May, Chronic pain G89.29 [facility] [id number] [place] [address] 71656- 4960 May, Weight loss R63.4 and Shortness of breath R06.02 [facility] [id number] [place] [address] 46920- 2891 May, Chronic pain G89.29 ; Weight loss R63.4 and Tobacco abuse Z72.0 [facility] [id number] [place] [address] 50784- 6377 May, [facility] [id number] [place] [address] 78162- 4532 May, Hypoxia R09.02 [facility] [id number] [place] [address] 71261- 7733 May, [facility] [id number] [place] [address] 33228- 6402 May, Pulmonary emphysema, unspecified emphysema type J43.9 [facility] [id number] [place] [address] 46829 -7336 May, [facility] [id number] [place] [address] 16542- 2711 May, [facility] [id number] [place] [address] 27412- 9881 May, [facility] [id number] [place] [address] 35070- 2200 May, Chronic pain G89.29 ; Encounter for immunization Z23 ; Right anterior knee pain M25.[address] [facility] [address] 20342- 5629 Apr, Chronic pain G89.29 [facility] [address] 49860- 9538 Apr, [facility] [address] 81323- 5644 Apr, Generalized anxiety disorder F41.1 and Depression, unspecified depression type F32.9 [place] [address] 04022- 4616 Apr, Chronic pain G89.29 ; Hypokalemia E87.6 and Insomnia, unspecified type G47.00 [facility] [address] 94110- 8900 Apr, [facility] [address] 40986- 0062 Apr, Chronic pain G89.29 [facility] [address] 37047- 7121 Apr, [facility] [id number] [place] [address] 55356- 4321 Mar, [facility] [address] 11499- 3921 Mar, Insomnia, unspecified type G47.00 [facility] [address] 78295- 4463 Mar, Chronic pain G89.29 [facility] [address] 84291- 5842 Mar, [facility] [id number] [place] [address] 23931- 7944 Feb, [facility] [address] 61848- 4868 Feb, [facility] [address] [address]- 9027 Feb, [facility] [id number] [place] [address] 38200- 9822 Feb, [facility] [id number] [place] [address] 07643- 3949 Feb, [facility] [id number] [place] [address] 32163- 6323 29 Jan, 2016 [facility] [address] [place] [address] 01382- 1593 26 Jan, 2016 [facility] [id number] [place] [address] 73209- 4894 20 Jan, 2016 [facility] [id number] [place] [address] 12315- 5101 13 Jan, 2016 [facility] [id number] [place] [address] 52091- 7658 12 Jan, 2016 [facility] [id number] [place] [address] 96357- 0635 07 Jan, [address] [facility] [id number] [place] [address] 10215- 2356 Jan, Chronic pain G89.[address] [facility] [id number] [place] [address] 51026- 2647 Dec, Depression, unspecified depression type F32.9 and Generalized anxiety disorder 300.02 [facility] [id number] [place] [address] 36353- 3263 Dec, Dysthymia F34.1 ; Insomnia, unspecified type G47.00 and Chronic pain G89.29 [facility] [address] [address]- 6800 Dec, Chronic pain G89.29 [facility] [address] [address]- 8177 Dec, Insomnia, unspecified type G47.00 [facility] [id number] [place] [address] 48744- 0487 Dec, Fibromyalgia M79.7 and Chronic pain G89.29 [facility] [id number] [place] [address] 97801- 2309 Dec, [facility] [id number] [place] [address] 14484- 9692 Dec, [facility] [id number] [place] [address] 08695- 9565 Dec, [facility] [id number] [place] [address] 48334- 4855 Dec, [facility] [id number] [place] [address] 30300- 6506 Dec, Chronic pain G89.29 [facility] [id number] [place] [address] 39987- 3075 Dec, [facility] [id number] [place] [address] 51415- 4145 Dec, [facility] [id number] [place] [address] 65468- 7596 Dec, [facility] [id number] [place] [address] 00696- 2540 Dec, Chronic pain G89.[address] [facility] [id number] [place] [address] 06247- 1676 Nov, [facility] [id number] [place] [address] 50808- 6606 Nov, Hypokalemia E87.6 and Chronic pain G89.29 [facility] [id number] [place] [address] 75778- 1553 Nov, Back pain M54.9 and Pain in right knee M25.561 [facility] [id number] [place] [address] 45370- 7456 Nov, [facility] [id number] [place] [address] 28077 2546 Nov, Chronic pain G89.29 [facility] [id number] [place] [address] 29395- 6749 Nov, Chronic pain G89.29 ; Weight loss R63.4 ; Bone pain M89.8X9 and Insomnia, unspecified type G47.00 [facility] [id number] [place] [address] 49193- 8378 Nov, Chronic pain G89.29 [facility] [id number] [place] [address] 78357- 7937 Nov, Chronic pain G89.29 [facility] [id number] [place] [address] 20534- 5043 Oct, Chronic pain G89.29 [facility] [id number] [place] [address] 83175- 7186 Oct, UTI symptoms R39.9 [facility] [id number] [place] [address] 52178 2541 Oct, Chronic pain G89.29 [facility] [id number] [place] [address] 81794- 6847 Oct, Chronic pain G89.29 [facility] [id number] [place] [address] 41921 2540 Oct, Chronic pain G89.29 [facility] [id number] [place] [address] 22632- 1750 Oct, Right upper quadrant abdominal pain R10.11 [facility] [id number] [place] [address] 90431- 5680 Oct, Chronic pain G89.29 [facility] [address] [address]- 5646 Oct, [facility] [id number] [place] [address] 44472- 4339 September, Chronic pain G89.29 [facility] [address] [address] September, Dysuria R30.0 and Urinary tract infection without hematuria , site unspecified N39.0 [facility] [id number] [place] [address] 50578- 3518 September, [facility] [id number] [place] [address] 83253- 8663 September, Dysuria R30.0 [facility] [id number] [place] [address] 59351- 7710 September, Chronic pain G89.29 [facility] [id number] [place] [address] 81918- 0597 September, Chronic pain G89.29 and Essential hypertension I10 [facility] [id number] [place] [address] 91599- 9438 September, [facility] [id number] [place] [address] 16609- 1369 September, [facility] [id number] [place] [address] 09010- 4871 September, [facility] [id number] [place] [address] 38313- 6823 Aug, UTI symptoms R39.9 [facility] [id number] [place] [address] 91869- 6991 Aug, Dysuria R30.0 [facility] [id number] [place] [address] 02823- 7349 Aug, [facility] [id number] [place] [address] 67475- 5226 Aug, [facility] [id number] [place] [address] 39826- 2613 Aug, [facility] [id number] [place] [address] 59304- 6896 Aug, Chronic pain G89.29 [facility] [id number] [place] [address] 16304- 1502 Aug, Dysthymia F34.1 [facility] [id number] [place] [address] [phone]- 5363 Aug, Conjunctivitis, unspecified conjunctivitis type, unspecified laterality H10.9 [facility] [id number] [place] [address] 78570- 9024 31 Jul, 2015 Chronic pain G89.29 ; Back pain M54.9 ; Tobacco abuse Z72.0 and Weight decrease R63.4 [facility] [id number] [place] [address] 19872- 5847 30 Jul, 2015 [facility] [id number] [place] [address] 66504- 4370 30 Jul, 2015 [facility] [id number] [place] [address] 70236- 5724 24 Jul, [address] [facility] [id number] [place] [address] 18317- 6388 Jul, [facility] [id number] [place] [address] 15313- 8173 Jul, [facility] [id number] [place] [address] 17304- 2695 18 Jul, 2015 [facility] [id number] [place] [address] 01957- 0204 17 Jul, [address] [facility] [facility] [id number] [place] [address] 67210- 1221 Jul, Chronic pain G89.29 [facility] [id number] [place] [address] 86239- 0678 Jul, Chronic pain G89.29 [facility] [id number] [place] [address] 55333- 1004 Jul, [facility] [id number] [place] [address] 89411- 6356 Jul, [facility] [id number] [place] [address] 83315- 9362 Jul, [facility] [id number] [place] [address] 88586- 9062 Jul, [facility] [address] 12929- 2524 Jun, [facility] [facility] [id number] [place] [address] 11176- 4634 Jun, Depression, unspecified depression type F32.9 [facility] [id number] [place] [address] 59057- 0800 Jun, Pain in right knee M25.561 [address] [facility] [address] 79044- 3647 Jun, Chronic pain G89.29 ; Back pain M54.9 ; Bone pain M89.8X9 and Weight loss R63.4 [facility] [facility] [id number] [place] [address] 14170- 3997 Jun, [facility] [id number] [place] [address] 92098- 1331 May, [facility] [facility] [id number] [place] [address] 42331- 8027 May, UTI symptoms R39.9 ; Pain in right knee M25.561 ; Right low back pain, with sciatica presence unspecified M54.5 ; Right foot pain M79.671 ; Hypokalemia E87.6 and Screening, lipid Z13.220 [place] [address] [place] [address]- 5[address] May, [facility] [id number] [place] [address] 60216- 2277 May, [facility] [id number] [place] [address] 496301- 1059 Mar, [facility] [id number] [place] [address] 24531- 0166 Mar, [facility] [id number] [place] [address] 72648- 7966 Mar, Hypokalemia E87.6 [facility] [address] 71887- 6195 Mar, Pain in right leg M79.604 ; Encounter for immunization Z23 ; Pain in right knee M25.[address] [facility] [id number] [place] [address] 84501- 3493 Jan, [facility] [id number] [place] [address] 89230- 3122 Jan, [facility] [id number] [place] [address] 43950- 8100 Jan, Abdominal pain, generalized 789.07 [facility] [id number] [place] [address] 62745- 0439 Jan, Abdominal pain, generalized 789.07 [facility] [id number] [place] [address] 49796- 7587 Dec, [facility] [id number] [place] [address] 12228- 3036 Dec, [facility] [id number] [place] [address] 62453- 8730 Dec, [facility] [id number] [place] [address] 01760- 6480 Nov, Hallux valgus 735.[address] [facility] [address] [facility] [id number] [address] 4[address] Nov, [facility] [address] [id number] [address]- 7586 Nov, Hallux valgus 735.[address] [facility] [id number] [address]- 5786 Oct, [facility] [address] [facility] [id number] [place] [address]- 9736 Oct, [facility] [id number] [place] [address] 99498- 2003 Oct, Pre-op evaluation V72.84 [facility] [id number] [address]- 6375 Oct, [facility] [address] [id number] [address] 1934 Oct, [facility] [id number] [address]- [address] September, [facility] [id number] [address]- 1078 September, [facility] [id number] [address]- 2709 September, Hallux valgus (acquired) 735.0 and Other hammer toe ( acquired) 735.4 [facility] [id number] [address]- 5293 Aug, [facility] [id number] [address]- [address] Aug, [facility] [address] [id number] [address]- 0692 Jul, [facility] [address] [id number] [address]- 9651 Jul, [facility] [place] [facility] [address] [id number] [place] [address]- 2385 Jul, 2014 [facility] [place] [facility] [address] [id number] [place] [address]- 5379 Jul, 2014 [facility] [place] [facility] [address] [id number] [place] 6611 Jul, [facility] [place] [facility] [address] [id number] [place] [address]- 2053 Jul, [facility] [place] [facility] [address] [id number] [place] [address]- 9813 Jul, [facility] [place] [facility] [address] [id number] [place] [address]- 4674 Jul, [facility] [place] [facility] [address] [facility] [id number] [place] [address]- 3774 Jun, 2014 [facility] [place] [facility] [address] [id number] [place] [address]- 2985 Jun, 2014 [facility] [place] [facility] [address] [id number] [place] [address]- 1347 Jun, 2014 [facility] [place] [facility] [address] [facility] [id number] [place] [address]- 3759 Jun, 2014 [facility] [place] [facility] [address] [facility] [id number] [place] [address]- 3261 Jun, 2014 [facility] [place] [facility] [address] [id number] [address]- 0570 Jun, 2014 [facility] [place] [facility] [address] [id number] [place] [address]- 2042 Jun, 2014 [facility] [place] [facility] [address] [facility] [id number] [place] [address]- 0785 Jun, 2014 [facility] [place] [facility] [address] [facility] [id number] [place] [address]- 4921 Jun, 2014 [facility] [place] [facility] [address] [id number] [place] [address]- 5462 Jun, [facility] [address] [id number] [place] [address]- 6361 May, [facility] [place] [facility] [address] [id number] [place] [address]- 1454 May, [facility] [address] [id number] [place] [address]- 8086 May, [facility] [address] [id number] [place] [address]- 0592 May, [facility] [address] [id number] [place] [address]- 6664 May, [facility] [address] [id number] [place] [address]- 9679 May, [facility] [address] [id number] [place] [address]- 9244 May, [facility] [address] [id number] [place] [address]- 3261 May, [facility] [address] [id number] [place] [address]- 3026 May, [facility] [address] [id number] [place] [address]- 4518 May, [facility] [place] [facility] [address] [id number] [place] [address]- 9195 May, [facility] [address] [id number] [place] [address]- 1786 May, [facility] [place] [facility] [address] [id number] [place] [address]- 5633 May, [facility] [place] [facility] [address] [id number] [place] [address]- 2466 May, [facility] [place] [facility] [address] [id number] [place] [address]- 7195 May, [facility] [place] [facility] [address] [id number] [place] [address]- 1103 May, [facility] [place] [facility] [address] [id number] [place] [address]- 0199 May, [facility] [place] [facility] [address] [id number] [place] [address]- 0268 May, [facility] [place] [facility] [address] [id number] [place] [address]- 9561 Apr, [facility] [place] [facility] [address] [id number] [place] [address]- 9319 Apr, [facility] [place] [facility] [address] [id number] [place] [address]- 6798 Apr, [facility] [place] [facility] [address] [id number] [place] [address]- 2856 Apr, [facility] [place] [facility] [address] [id number] [place] [address]- 0048 Apr, [facility] [place] [facility] [address] [id number] [place] [address]- 7176 Apr, [facility] [place] [facility] [address] [id number] [place] [address]- 6230 Apr, [facility] [place] [facility] [address] [id number] [place] [address]- 2115 Apr, [facility] [place] [facility] [address] [id number] [place] [address]- 5483 Apr, [facility] [place] [facility] [address] [id number] [place] [address]- 6508 Mar, [facility] [place] [facility] [address] [id number] [place] 8197 Mar, [facility] [place] [facility] [address] [id number] [place] 9694 Mar, [facility] [place] [facility] [address] [id number] [place] [address]- 0250 Mar, [facility] [place] [facility] [address] [id number] [place] [address]- 6553 Mar, [facility] [place] [facility] [address] [id number] [place] [address]- 1058 Feb, 2013 [facility] [place] [facility] [address] [id number] [place] [address]- 8072 Feb, 2013 [facility] [place] [facility] [address] [id number] [place] [address]- 9687 Feb, [facility] [place] [facility] [address] [id number] [place] [address]- 1853 Feb, 2013 [facility] [place] [facility] [address] [id number] [place] [address]- 2474 Feb, 2013 [facility] [place] [facility] [address] [id number] [place] [address]- 6209 Feb, 2013 [facility] [place] [facility] [address] [id number] [place] [address]- 7719 Feb, 2013 [facility] [place] [facility] [address] [facility] [id number] [place] [address]- 5689 Feb, 2013 [facility] [place] [facility] [address] [facility] [id number] [place] [address]- 8762 Feb, 2013 [facility] [place] [facility] [address] [id number] [place] [address]- 3170 Feb, 2013 [facility] [place] [facility] [address] [id number] [place] [address]- 0562 Feb, 2013 [facility] [place] [facility] [address] [id number] [place] [address]- 7585 Feb, [facility] [place] [facility] [address] [facility] [id number] [place] [address]- 2219 Feb, 2013 [facility] [place] [facility] [address] [facility] [id number] [place] [address]- 3403 Feb, 2013 [facility] [place] [facility] [address] [id number] [place] [address]- 7063 07 Feb, 2013 [facility] [place] [facility] [address] [id number] [place] [address]- 3766 07 Feb, 2014 [facility] [place] [facility] [address] [id number] [place] [address]- 0616 23 Jan, 2013 [facility] [place] [facility] [address] [id number] [place] [address] 2546 23 Jan, 2013 [facility] [place] [facility] [address] [id number] [place] [address]- 8135 20 Jan, 2013 [facility] [place] [facility] [address] [id number] [place] [address]- 2506 19 Jan, 2013 [facility] [place] [facility] [address] [id number] [place] [address]- 9676 11 Jan, 2014 [facility] [place] [facility] [address] [id number] [place] [address]- 3163 Jan, 2013 [facility] [place] [facility] [address] [id number] [place] [address]- 5267 Jan, [facility] [place] [facility] [address] [id number] [place] [address]- 6282 Jan, [facility] [place] [facility] [address] [id number] [place] [address]- 6989 Dec, [facility] [place] [facility] [address] [id number] [place] [address]- 5877 Dec, [facility] [place] [facility] [address] [id number] [place] [address]- 8059 Nov, [facility] [place] [facility] [address] [id number] [place] [address]- 8186 Nov, [facility] [place] [facility] [address] [id number] [place] [address]- 8704 Nov, [facility] [place] [facility] [address] [id number] [place] [address]- 9049 Nov, [facility] [place] [facility] [address] [id number] [place] [address]- 0881 Nov, [facility] [place] [facility] [address] [id number] [place] [address]- 0514 Nov, [facility] [place] [facility] [address] [id number] [place] [address]- 2978 Nov, [facility] [place] [facility] [address] [id number] [place] [address]- 6779 Nov, [facility] [place] [facility] [address] [id number] [place] [address]- 3879 Nov, [facility] [place] [facility] [address] [id number] [place] [address]- 0442 Oct, [facility] [place] [facility] [address] [id number] [place] [address]- 4361 Oct, [facility] [place] [facility] [address] [id number] [place] [address]- 9160 Oct, [facility] [place] [facility] [address] [id number] [place] [address]- 1233 Oct, [facility] [place] [facility] [address] [id number] [place] [address]- 5762 Oct, [facility] [place] [facility] [address] [id number] [place] [address]- 3288 Oct, [facility] [place] [facility] [address] [id number] [place] [address]- 6367 September, [facility] [place] [facility] [address] [id number] [place] [address]- 6651 September, [facility] [place] [facility] [address] [id number] [place] [address]- 3063 September, [facility] [place] [facility] [address] [id number] [place] [address]- 1956 September, [facility] [place] [facility] [address] [id number] [place] [address]- 2846 September, [facility] [address] [id number] [place] 2064 September, [facility] [place] [facility] [address] [id number] [place] 5361 September, [facility] [address] [id number] [place] [address]- 9628 September, [facility] [place] [facility] [address] [id number] [place] [address]- 1274 September, [facility] [place] [facility] [address] [id number] [place] 6077 September, [facility] [place] [facility] [address] [id number] [place] [address]- 6510 September, [facility] [address] [id number] [place] [address]- 4614 September, [facility] [place] [facility] [address] [id number] [place] [address]- 7735 September, [facility] [place] [facility] [address] [id number] [place] [address]- 9345 September, [facility] [address] [id number] [place] [address]- 1531 September, [facility] [place] [facility] [address] [id number] [place] [address]- 0391 September, [facility] [place] [facility] [address] [id number] [place] [address]- 9833 September, [facility] [place] [facility] [address] [id number] [place] [address]- 5466 September, [facility] [place] [facility] [address] [id number] [place] [address]- 9712 September, [facility] [place] [facility] [address] [id number] [place] [address]- 4543 September, [facility] [place] [facility] [address] [id number] [place] [address]- 9650 Aug, [facility] [place] [facility] [address] [id number] [place] [address]- 3423 Aug, [facility] [place] [facility] [address] [id number] [place] [address]- 9325 Aug, [facility] [place] [facility] [address] [id number] [place] [address]- 7260 Aug, [facility] [place] [facility] [address] [id number] [place] [address]- 9858 Aug, [facility] [place] [facility] [address] [id number] [place] [address]- 8991 Aug, [facility] [place] [facility] [address] [id number] [place] [address]- 0563 Aug, [facility] [place] [facility] [address] [id number] [place] [address]- 6566 Aug, [facility] [place] [facility] [address] [id number] [place] [address]- 4671 Aug, [facility] [place] [facility] [address] [id number] [place] [address]- 3741 Aug, [facility] [place] [facility] [address] [id number] [place] [address]- 1601 Aug, [facility] [place] [facility] [address] [id number] [place] [address]- 8687 Aug, [facility] [place] [facility] [address] [id number] [place] [address]- 2192 Aug, [facility] [place] [facility] [address] [id number] [place] [address]- 9511 Aug, [facility] [place] [facility] [address] [id number] [place] [address]- 9009 Aug, [facility] [place] [facility] [address] [id number] [place] [address]- 2546 Jul, [facility] [place] [facility] [address] [id number] [place] [address]- 3030 31 Jul, 2013 [facility] [place] [facility] [address] [id number] [place] [address]- 9418 Jul, [facility] [place] [facility] [address] [id number] [place] [address]- 4311 Jul, [facility] [place] [facility] [address] [id number] [place] [address]- 4445 Jul, [facility] [place] [facility] [address] [id number] [place] [address]- 6700 Jul, [facility] [place] [facility] [address] [id number] [place] [address]- 8702 Jul, [facility] [place] [facility] [address] [id number] [place] [address]- 6120 Jul, [facility] [place] [facility] [address] [id number] [place] [address]- 3619 Jul, [facility] [place] [facility] [address] [id number] [place] [address]- 7986 Jul, [facility] [place] [facility] [address] [id number] [place] [address]- 0001 Jul, [facility] [place] [facility] [address] [id number] [place] [address]- 0268 Jul, [facility] [place] [facility] [address] [id number] [place] [address]- 4122 Jul, [facility] [place] [facility] [address] [id number] [place] [address]- 4008 Jul, [facility] [place] [facility] [address] [id number] [place] [address] Jul, [facility] [place] [facility] [address] [id number] [place] [address] 18 Jun, 2013 [facility] [place] [facility] [address] [id number] [place] [address] 18 Jun, 2013 [facility] [place] [facility] [address] [id number] [place] [address] Jun, [facility] [place] [facility] [address] [id number] [place] [address] Jun, [facility] [place] [facility] [address] [id number] [place] [address] Jun, [facility] [place] [facility] [address] [id number] [place] [address] Jun, [facility] [place] [facility] [address] [id number] [place] [address] May, [facility] [place] [facility] [address] [id number] [place] [address] May, [facility] [place] [facility] [address] [id number] [place] [address]- [address] May, [facility] [place] [facility] [address] [id number] [place] [address] May, [facility] [place] [facility] [address] [id number] [place] [address] May, [facility] [place] [facility] [address] [id number] [place] [address] May, [facility] [place] [facility] [address] [id number] [place] [address] May, [facility] [place] [facility] [address] [id number] [place] [address] May, [facility] [place] [facility] [address] [id number] [place] [address]- [address] May, [facility] [place] [facility] [address] [id number] [place] [address] May, [facility] [place] [facility] [address] [id number] [place] [address]- [address]28 May, [facility] [place] [facility] [address] [id number] [place] [address]- 18[address] May, [facility] [place] [facility] [address] [id number] [place] [address]- [address] May, [facility] [place] [facility] [address] [id number] [place] [address] May, [facility] [place] [facility] [address] [id number] [place] [address]- [address] May, [facility] [place] [facility] [address] [id number] [place] [address]- [address] Apr, [facility] [place] [facility] [address] [id number] [place] [address]- [address]289 Apr, [facility] [place] [facility] [address] [id number] [place] [address]- [address] Apr, [facility] [place] [facility] [address] [id number] [place] [address]99 Apr, [facility] [place] [facility] [address] [id number] [place] [address]- [address] Apr, [facility] [place] [facility] [address] [id number] [place] [address] Apr, [facility] [place] [facility] [address] [id number] [place] [address]- [address]31 Apr, [facility] [place] [facility] [address] [id number] [address] Apr, [facility] [place] [facility] [address] [id number] [place] [address] Apr, [facility] [place] [facility] [address] [id number] [place] [address]- [address]358 Apr, [facility] [place] [facility] [address] [id number] [place] [address] 94[address] Mar, [facility] [place] [facility] [address] [id number] [place] [address] 1463 Mar, [facility] [address] [id number] [place] [address] Mar, [facility] [address] [id number] [place] [address] 1512 Mar, [facility] [address] [id number] [place] [address] Mar, [facility] [address] [id number] [place] [address]- [address] Mar, [facility] [address] [id number] [place] [address] Mar, [facility] [address] [id number] [place] [address] 36[address] Mar, [facility] [address] [id number] [place] [address]- 1547 Mar, [facility] [address] [id number] [place] [address]- [address]162 Mar, [facility] [address] [id number] [place] [address]- [address] Mar, [facility] [address] [id number] [place] [address]- 9599 Mar, [facility] [address] [id number] [place] [address]- 9437 Mar, [facility] [address] [id number] [place] [address]- [address] 19 Mar, 2013 [facility] [place] [facility] [address] [id number] [place] [address]- 8383 18 Mar, 2013 [facility] [place] [facility] [address] [id number] [place] [address]- 0381 18 Mar, 2013 [facility] [address] [id number] [place] [address]- [address] 14 Mar, 2013 [facility] [place] [facility] [address] [id number] [place] [address]- [address]30 14 Mar, 2013 [facility] [place] [facility] [address] [id number] [place] [address]- 4843 12 Mar, 2013 [facility] [place] [facility] [address] [id number] [place] [address]- 3570 12 Mar, 2013 [facility] [place] [facility] [address] [id number] [place] [address]- [address]100 Mar, [facility] [place] [facility] [address] [id number] [place] [address]- 4766 Mar, [facility] [place] [facility] [address] [id number] [place] [address]- [address] Mar, [facility] [place] [facility] [address] [id number] [place] [address]- 6453 Feb, [facility] [place] [facility] [address] [id number] [place] [address]- 7776 18 Feb, 2013 [facility] [place] [facility] [address] [id number] [place] [address]- 2769 Feb, [facility] [place] [facility] [address] [id number] [place] [address]- [address] 16 Feb, 2013 [facility] [place] [facility] [address] [id number] [place] [address] 15 Feb, 2013 [facility] [place] [facility] [address] [id number] [place] [address]- 1010 09 Feb, 2013 [facility] [place] [facility] [address] [id number] [place] [address]- 7429 Feb, [facility] [place] [facility] [address] [id number] [place] [address]- [address] 07 Feb, 2013 [facility] [place] [facility] [address] [id number] [place] [address] 04 Feb, 2013 [facility] [place] [facility] [address] [id number] [place] [address]- 388[address] 03 Feb, 2013 [facility] [place] [facility] [address] [id number] [place] [address] 30 Jan, 2013 [facility] [place] [facility] [address] [id number] [place] [address] 0703 26 Jan, 2013 [facility] [place] [facility] [address] [id number] [place] [address] 4281 24 Jan, 2013 [facility] [place] [facility] [address] [id number] [place] [address] 3180 23 Jan, 2013 [facility] [place] [facility] [address] [id number] [place] [address]- 6874 17 Jan, 2013 [facility] [place] [facility] [address] [id number] [place] [address] 1294 Dec, [facility] [place] [facility] [address] [id number] [place] [address]- 2042 Dec, [facility] [place] [facility] [address] [id number] [place] [address]- 9363 Dec, [facility] [place] [facility] [address] [id number] [place] [address]- 5940 Dec, [facility] [place] [facility] [address] [id number] [place] [address]- 2342 Dec, [facility] [place] [facility] [address] [id number] [place] [address]- 0126 Dec, [facility] [place] [facility] [address] [id number] [place] [address]- 8381 Dec, [facility] [place] [facility] [address] [id number] [place] [address]- 2225 Nov, [facility] [place] [facility] [address] [id number] [place] [address] Nov, [facility] [place] [facility] [address] [id number] [place] [address]- 0434 15 Nov, 2012 [facility] [place] [facility] [address] [id number] [place] [address] 2546 05 Nov, 2012 [facility] [address] [id number] [place] [address] 1606 Nov, [facility] [address] [id number] [place] [address] 2546 Oct, [facility] [address] [id number] [place] [address]- 8276 Oct, [facility] [address] [id number] [place] [address]- 2546 Oct, [facility] [address] [id number] [place] [address]- 2346 September, [facility] [address] [id number] [place] [address]- 8966 September, [facility] [address] [id number] [place] [address]- 7816 September, [facility] [address] [id number] [place] [address]- 2571 September, [facility] [address] [id number] [place] [address]- 5436 September, [facility] [address] [id number] [place] [address]- 3294 September, [facility] [address] [id number] [place] [address]- 2546 September, [facility] [address] [id number] [place] [address]- 5500 Aug, [facility] [place] [facility] [address] [id number] [place] [address]- 2156 Aug, [facility] [place] [facility] [address] [id number] [place] [address]- 2546 Aug, [facility] [address] [id number] [place] [address]- 9260 Jul, [facility] [place] [facility] [address] [id number] [place] [address]- 9172 27 Jul, 2012 [facility] [place] [facility] [address] [id number] [place] [address]- 0722 26 Jul, 2012 [facility] [place] [facility] [address] [facility] [id number] [place] [address]- 7493 20 Jul, 2012 [facility] [place] [facility] [address] [id number] [place] [address]- 9633 18 Jul, 2012 [facility] [place] [facility] [address] [id number] [place] [address]- 5516 18 Jul, 2012 [facility] [place] [facility] [address] [id number] [place] [address]- 1258 13 Jul, 2012 [facility] [place] [facility] [address] [facility] [id number] [place] [address]- 5126 28 Jun, 2012 [facility] [place] [facility] [address] [facility] [id number] [place] [address]- 7818 27 Jun, 2012 [facility] [place] [facility] [address] [facility] [id number] [place] [address]- 2796 Jun, [facility] [place] [facility] [address] [facility] [id number] [place] [address]- 6457 20 Jun, 2012 [facility] [place] [facility] [address] [facility] [id number] [place] [address]- 4472 15 Jun, 2012 [facility] [place] [facility] [address] [facility] [id number] [place] [address]- 2025 15 Jun, 2012 [facility] [place] [facility] [address] [facility] [id number] [place] [address]- 7999 13 Jun, 2012 [facility] [place] [facility] [address] [facility] [id number] [place] [address] 12 Jun, 2012 [facility] [place] [facility] [address] [facility] [id number] [place] [address]- 1419 Jun, [facility] [place] [facility] [address] [id number] [place] [address]- 2546 Jun, [facility] [address] [id number] [place] [address]- 8656 May, [facility] [place] [facility] [address] [id number] [place] [address]- 2546 May, [facility] [place] [facility] [address] [id number] [place] [address]- 8476 May, [facility] [place] [facility] [address] [id number] [place] [address]- 2546 May, [facility] [place] [facility] [address] [id number] [place] [address]- 6416 May, [facility] [place] [facility] [address] [id number] [place] [address]- 2546 May, [facility] [place] [facility] [address] [id number] [place] [address]- 5303 Apr, [facility] [address] [id number] [place] [address]- 0675 31 Apr, 2012 [facility] [place] [facility] [address] [id number] [place] [address] 2547 Apr, [facility] [place] [facility] [address] [id number] [place] [address]- 9360 Apr, [facility] [place] [facility] [address] [id number] [place] [address]- 2816 Apr, [facility] [place] [facility] [address] [id number] [place] [address]- 2546 Apr, [facility] [place] [facility] [address] [id number] [place] [address] 2546 Apr, [facility] [place] [facility] [address] [id number] [place] [address]- 2546 29 Mar, 2012 [facility] [place] [facility] [address] [id number] [place] [address]- 0846 Mar, [facility] [place] [facility] [address] [id number] [place] [address]- 7226 Mar, [facility] [place] [facility] [address] [id number] [place] [address]- 0594 Mar, [facility] [place] [facility] [address] [id number] [place] [address]- 8416 Mar, [facility] [place] [facility] [address] [id number] [place] [address]- 4373 Mar, [facility] [place] [facility] [address] [id number] [place] [address]- 3167 Mar, [facility] [place] [facility] [address] [id number] [place] [address]- 4114 Mar, [facility] [place] [facility] [address] [id number] [place] [address]- 6804 Mar, [facility] [place] [facility] [address] [id number] [place] [address]- 6962 Mar, [facility] [place] [facility] [address] [id number] [place] [address]- 2797 Mar, [facility] [place] [facility] [address] [id number] [place] [address]- 7533 Mar, [facility] [place] [facility] [address] [id number] [place] [address]- 5682 Mar, [facility] [place] [facility] [address] [id number] [place] [address]- 0596 Mar, [facility] [place] [facility] [address] [id number] [place] [address]- 6494 Mar, [facility] [place] [facility] [address] [id number] [address]- 8326 Mar, [facility] [place] [facility] [address] [id number] [address]- 3982 Mar, [facility] [place] [facility] [address] [id number] [place] [address]- 7655 25 Feb, 2011 [facility] [place] [facility] [address] [id number] [place] [address]- 3503 25 Feb, 2011 [facility] [place] [facility] [address] [id number] [place] [address]- 4306 17 Feb, 2011 [facility] [place] [facility] [address] [id number] [place] [address]- 3626 17 Feb, 2011 [facility] [place] [facility] [address] [id number] [place] [address]- 1953 16 Feb, 2011 [facility] [place] [facility] [address] [id number] [place] [address]87 16 Feb, 2011 [facility] [place] [facility] [address] [id number] [place] [address]- 7773 Feb, [facility] [place] [facility] [address] [id number] [place] [address]- 1792 Feb, [facility] [place] [facility] [address] [id number] [place] [address]- 2460 05 Feb, 2012 [facility] [place] [facility] [address] [id number] [place] [address]- 8270 04 Feb, 2012 [facility] [place] [facility] [address] [facility] [id number] [place] [address]- 2710 02 Feb, 2012 [facility] [place] [facility] [address] [id number] [place] [address]- 1834 27 Sep, 2011 [facility] [place] [facility] [address] [id number] [place] [address]- 2542 25 Sep, 2011 [facility] [place] [facility] [address] [id number] [place] [address]- 7116 13 Sep, 2011 [facility] [place] [facility] [address] [id number] [place] [address]- 2546 12 Sep, 2011 [facility] [place] [facility] [address] [id number] [place] [address] Jan, [facility] [place] [facility] [address] [id number] [place] [address]- 8108 Dec, [facility] [place] [facility] [address] [id number] [place] [address]- 5471 Dec, [facility] [place] [facility] [address] [id number] [place] [address]- 3341 Dec, [facility] [place] [facility] [address] [id number] [place] [address]- 8604 Dec, [facility] [place] [facility] [address] [id number] [place] [address]- 3940 Dec, [facility] [place] [facility] [address] [id number] [place] [address]- 0356 Dec, [facility] [place] [facility] [address] [id number] [place] [address]- 3113 Dec, [facility] [place] [facility] [address] [id number] [place] [address]- 6522 Dec, [facility] [place] [facility] [address] [id number] [place] [address]- 6669 Nov, [facility] [place] [facility] [address] [id number] [place] [address]- 6272 Nov, [facility] [place] [facility] [address] [id number] [place] [address]- 6925 Nov, [facility] [place] [facility] [address] [id number] [place] [address]- 2630 Nov, [facility] [place] [facility] [address] [id number] [place] [address]- 8118 Nov, [facility] [place] [facility] [address] [id number] [place] [address]- 4769 Oct, [facility] [place] [facility] [address] [id number] [place] [address]- 3862 Oct, [facility] [place] [facility] [address] [id number] [place] [address]- 2546 September, [facility] [address] [id number] [place] 7925 September, [facility] [place] [facility] [address] [id number] [place] [address]- 1436 September, [facility] [place] [facility] [address] [id number] [place] [address]- 9939 September, [facility] [place] [facility] [address] [id number] [place] [address]- 8785 September, [facility] [place] [facility] [address] [id number] [place] [address]- 3320 September, [facility] [place] [facility] [address] [id number] [place] [address]- 8066 September, [facility] [address] [id number] [place] [address]- 3937 September, [facility] [place] [facility] [address] [id number] [place] [address]- 4725 September, [facility] [place] [facility] [address] [id number] [place] 4106 September, [facility] [place] [facility] [address] [id number] [place] [address]- 2227 September, [facility] [place] [facility] [address] [id number] [place] [address]- 2824 September, [facility] [place] [facility] [address] [id number] [place] [address]- 3776 September, [facility] [place] [facility] [address] [id number] [place] [address]- 3524 September, [facility] [place] [facility] [address] [id number] [place] [address]- 7505 Aug, [facility] [place] [facility] [address] [id number] [place] [address]- 3997 Aug, [facility] [place] [facility] [address] [id number] [place] [address]- 2546 13 Aug, 2011 [facility] [address] [id number] [place] [address]- 7166 11 Aug, 2011 [facility] [address] [id number] [place] [address]- 2546 23 Jul, 2011 [facility] [address] [id number] [place] [address]- 6516 13 Jul, 2011 [facility] [address] [id number] [place] [address]- 2546 13 Jul, 2011 [facility] [address] [id number] [place] [address]- 4046 28 Jun, [address] [facility] [address] [id number] [id number] 26 Jun, 2011 [facility] [address] [id number] [place] [address]- 0386 13 Jun, 2011 [facility] [address] [id number] [place] [address]- 5823 10 Jun, 2011 [facility] [address] [id number] [place] [address]- 7566 07 Jun, 2011 [facility] [address] [id number] [place] [address]- 5726 07 Jun, 2011 [facility] [address] [id number] [place] [address]- 2546 03 Jun, 2011 [facility] [address] [id number] [place] [address]- 7216 Jun, [facility] [place] [facility] [address] [id number] [place] [address]- 7746 May, [facility] [place] [facility] [address] [id number] [place] [address]- 2546 May, [facility] [place] [facility] [address] [id number] [place] [address]- 0449 May, [facility] [address] [id number] [place] [address]- 0083 May, [facility] [place] [facility] [address] [id number] [place] [address]- 6111 May, [facility] [place] [facility] [address] [id number] [place] [address]- 1208 May, [facility] [place] [facility] [address] [id number] [place] [address]- 6271 May, [facility] [place] [facility] [address] [id number] [place] [address]- 0899 May, [facility] [place] [facility] [address] [id number] [place] [address]- 3918 May, [facility] [place] [facility] [address] [id number] [place] [address]- 0036 May, [facility] [place] [facility] [address] [id number] [place] [address]- 5529 May, [facility] [place] [facility] [address] [id number] [place] [address]- 2426 May, [facility] [place] [facility] [address] [id number] [place] [address]- 3371 May, [facility] [place] [facility] [address] [id number] [place] [address]- 1532 May, [facility] [place] [facility] [address] [id number] [place] [address]- 0763 30 Apr, 2011 [facility] [place] [facility] [address] [id number] [place] [address]- 9601 16 Apr, 2011 [facility] [place] [facility] [address] [id number] [place] [address]- 9908 05 Apr, 2011 [facility] [place] [facility] [address] [id number] [place] [address]- 6051 17 Mar, 2011 [facility] [place] [facility] [address] [id number] [place] [address]- 1788 Mar, [facility] [address] [id number] [place] [address]- 4126 31 Feb, 2011 [facility] [place] [facility] [address] [id number] [place] [address]- 2536 26 Feb, 2011 [facility] [place] [facility] [address] [id number] [place] [address]- 7816 21 Feb, 2011 [facility] [place] [facility] [address] [id number] [place] [address] 2543 20 Feb, 2011 [facility] [place] [facility] [address] [id number] [place] [address]- 2668 13 Feb, 2011 [facility] [place] [facility] [address] [id number] [place] [address]- 0072 28 Apr, 2010 [facility] [place] [facility] [address] [id number] [place] [address]- 1959 22 Apr, 2010 [facility] [place] [facility] [address] [id number] [place] [address]- 7001 16 Apr, 2010 [facility] [place] [facility] [address] [id number] [place] [address]- 2179 15 Apr, 2010 [facility] [place] [facility] [address] [facility] [id number] [place] [address]- 0631 15 Apr, 2010 [facility] [place] [facility] [address] [id number] [place] [address]- 8277 Apr, [facility] [place] [facility] [address] [id number] [place] [address] 2540 24 Mar, 2010 [facility] [place] [facility] [address] [id number] [place] [address] 2546 17 Mar, 2010 [facility] [place] [facility] [address] [id number] [place] [address]- 2546 17 Mar, 2010 [facility] [place] [facility] [address] [id number] [place] [address]- 8523 [address], [address] [facility] [address] [id number] [address]- [address] Feb, [facility] [id number] [address] 8941 Feb, [facility] [id number] [address] 6518 Feb, [facility] [id number] [address] 7235 Dec, [facility] [id number] [address] 7928 Dec, [facility] [id number] [address]- 5863 Oct, [facility] [id number] [address] 9009 Mar, [facility] [id number] [address]- 1115 Mar, [facility] [address] [id number] [id number] 1700 September, IMMUNIZATIONS No Known Immunizations SOCIAL HISTORY Never Assessed REASON FOR VISIT Order Request PLAN OF CARE VITAL SIGNS MEDICATIONS [...]
--- OUTSIDE RECORDS SUMMARY | 2017-11-27 15:26 | XMS REPORT ---
Author Author VALERIE ZAVALA [facility] Address [address] [place] [address] Care Team Providers Care Review Specialist Name Role Phone VALERIE ZAVALA Unavailable PROBLEMS Type Condition ICD9-CM Code [id number] Code Onset Dates Condition Status SNOMED Code Problem Generalized anxiety disorder F41.1 Active 55229559 Problem Hypokalemia E87.6 Active 198714654 Problem Right low back pain, with sciatica presence unspecified M54.5 Active 399787716 Problem Post-traumatic stress disorder, chronic F43.12 Active 57152899 Problem Pain in right knee M25.561 Active 95642780 Problem Gastroesophageal reflux disease without esophagitis K21.9 Active 039714408 Problem UTI symptoms R39.9 Active 57416532 Problem Essential hypertension I10 Active 62242319 Problem Anxiety F41.9 Active 82163487 Problem Neuropathy G62.9 Active 033242725 Problem Other chronic pain G89.29 Active 25049155 Problem Generalized abdominal pain R10.84 Active 198509883 Problem Chronic pain G89.29 Active 04237825 Problem Back pain M54.9 Active 057998768 Problem Right foot pain M79.671 Active 43588552 Problem Panic attacks F41.0 Active 462723732 Problem Other emphysema J43.8 Active 10636817 Problem Kidney stones N20.0 Active 36895755 Problem Renal calculus, right N20.0 Active 17181481 Problem Weight decrease R63.4 Active 662926891 Problem Tobacco abuse Z72.0 Active 73901372 Problem Bone pain M89.8X9 Active 08841066 Problem Depression, unspecified depression type F32.9 Active 24146565 Problem Insomnia, unspecified type G47.00 Active 448827889 Problem Pulmonary emphysema, unspecified emphysema type J43.9 Active 05194740 Problem Right upper quadrant abdominal pain R10.11 Active 374891610 Problem Weight loss R63.4 Active 069272872 ALLERGIES No Information ENCOUNTERS Encounter Location Date Diagnosis [facility] [address] [address] Nov, [facility] [id number] [place] [address] 71071- 1971 Oct, Medicare welcome exam Z00.00 [facility] [id number] [place] [address] 48725- 7600 September, Back pain M54.9 and Right anterior knee pain M25.561 [facility] [id number] [place] [address] 30605- 2717 September, [facility] [id number] [place] [address] 72680- 7666 September, [facility] [id number] [place] [address] 35247- 5233 September, Essential hypertension I10 [facility] [id number] [place] [address] 75604- 9296 September, [facility] [id number] [place] [address] 16214- 1387 September, RLQ abdominal pain R10.31 ; Low back pain M54.5 and Other chronic pain G89.29 [facility] [id number] [place] [address] 62737- 4293 Aug, Medicare welcome exam Z00.00 [facility] [id number] [place] [address] 39208- 3557 Aug, [facility] [id number] [place] [address] 13500- 4978 Aug, Acute pyelonephritis N10 and Medicare welcome exam Z00.00 [facility] [address] [address] Aug, Dysuria R30.0 and Acute pyelonephritis N10 [facility] [id number] [address] 2573 Aug, [facility] [id number] [place] [address] 04320- 6544 Aug, [facility] [id number] [place] [address] 50840- 7206 Aug, [facility] [id number] [place] [address] 46014- 8622 Aug, [facility] [id number] [place] [address] 51760- 6560 Jul, [facility] [id number] [place] [address] 13732- 7397 Jul, Renal calculus, right N20.0 and Medicare welcome exam Z00.00 [facility] [id number] [place] [address] 56131 -1205 Jul, Dysuria R30.0 and Renal calculus, right N20.0 [facility] [id number] [place] [address] 82614- 7755 Jul, Medicare welcome exam Z00.00 [facility] [id number] [place] [address] 35299- 0790 Jun, Gastroesophageal reflux disease without esophagitis K21.9 and Generalized abdominal pain R10.84 [facility] [id number] [place] [address] 67567- 9236 Jun, Medicare welcome exam Z00.00 [facility] [id number] [place] [address] 44156- 2664 Jun, [facility] [id number] [place] [address] 85237- 3830 Jun, Medicare welcome exam Z00.00 and Encounter for screening mammogram for malignant neoplasm of breast Z12.31 [facility] [id number] [place] [address] 01345- 2284 02 Jun, 2017 Chronic pain G89.29 [place] [id number] [place] [address] 10161- 9637 May, [place] [address] 51721- 5940 May, Pelvic pain R10.2 [place] [address] 60924- 4527 May, Pelvic pain R10.2 [facility] [address] 13674 -8856 May, Renal calculus, right N20.0 [place] [address] 81100- 4859 May, Hematuria, unspecified type R31.9 and Nephrolithiasis N20.0 [facility] [place] [address] 09184 -1236 May, Dysuria R30.0 and Nephrolithiasis N20.0 [place] [id number] [place] [address] 29850- 7141 May, [facility] [place] [id number] [place] [address] 38722 -0844 May, Abdominal pain R10.9 and Kidney stone N20.0 [place] [id number] [place] [address] 02407- 5973 May, [place] [id number] [place] [address] 70280- 0830 May, Chronic pain G89.29 and Panic attacks F41.0 [place] [address] 08324- 1024 May, Urinary tract infection without hematuria, site unspecified N39.0 [place] [id number] [place] [address] 28668- 8125 Apr, Right lower quadrant abdominal pain R10.31 and Abnormal serum lipase level R74.8 [facility] [address] [address] 94[address] Apr, Recurrent urinary tract infection N39.0 [facility] [id number] [place] [address] 41112- 7663 Apr, UTI symptoms R39.9 ; Recurrent urinary tract infection N39.0 and Pelvic pain R10.2 [facility] [id number] [place] [address] 66076- 9446 Apr, Chronic pain G89.29 and Panic attacks F41.0 [facility] [id number] [place] [address] 54881- 9512 Apr, Dysuria R30.0 [facility] [id number] [place] [address] 03923- 5999 Apr, [facility] [id number] [place] [address] 14809- 1675 Apr, Dysuria R30.0 and Urinary tract infection without hematuria , site unspecified N39.0 [facility] [address] [address] 46[address] Mar, UTI symptoms R39.9 [facility] [id number] [place] [address] 41532- 9971 Mar, [facility] [address] [address]- 7064 Mar, Panic attacks F41.0 and Chronic pain G89.29 [facility] [address] [address]- 4657 Mar, [facility] [id number] [place] [address] 78576- 7170 09 Mar, 2017 Dysuria R30.0 [facility] [address] [address]- 4845 08 Mar, 2017 Dysuria R30.0 [facility] [id number] [place] [address] 41587- 8051 Feb, Chronic pain G89.29 ; Shortness of breath R06.02 ; Weight loss R63.4 ; Encounter for immunization Z23 ; Bone pain M89.8X9 ; Right anterior knee pain M25.561 and Cough R05 [place] [id number] [place] [address] 54261- 3101 Feb, Shortness of breath R06.02 [place] [address] 41577- 7459 Feb, [place] [address] 08025- 2721 Feb, Panic attacks F41.0 and Chronic pain G89.29 [place] [address] 04885- 0320 Feb, [place] [address] 67370- 1065 Feb, Panic attacks F41.0 ; Shortness of breath R06.02 and Encounter for immunization Z23 [place] [address] 42967- 0139 Jan, [place] [id number] [place] [address] 45277- 0173 Jan, Anxiety F41.9 and Chronic pain G89.29 [place] [address] 13793- 4422 Dec, Anxiety F41.9 and Chronic pain G89.29 [place] [address] 88672- 4983 Nov, Chronic pain G89.29 [place] [address] 01487- 1488 Nov, Anxiety F41.9 [place] [id number] [place] [address] 19251- 7667 Nov, Chronic pain G89.29 ; Essential hypertension I10 and Other emphysema J43.8 [facility] [id number] [place] [address] 46091- 7478 Oct, Anxiety F41.9 [facility] [id number] [place] [address] 34289- 4009 Oct, [facility] [id number] [place] [address] 02588- 8698 Oct, Chronic pain G89.29 [facility] [id number] [place] [address] 39250- 1510 September, Recurrent UTI N39.0 ; Neuropathy G62.9 and Anxiety F41.9 [facility] [id number] [place] [address] 01303- 3927 September, [facility] [id number] [place] [address] 54683- 9239 September, Chronic pain G89.29 [facility] [id number] [place] [address] 94689- 6012 September, [facility] [id number] [place] [address] 78253- 7478 Aug, Post-traumatic stress disorder, chronic F43.12 ; Chronic urinary tract infection N39.0 ; Gastroesophageal reflux disease without esophagitis K21.9 ; Chronic pain G89.29 ; Essential hypertension I10 and Tobacco abuse Z72.0 [facility] [id number] [place] [address] 70071 -4780 Aug, [facility] [id number] [place] [address] 53004- 8826 Aug, Chronic pain G89.29 [facility] [id number] [place] [address] 01506- 3451 Aug, Insomnia, unspecified type G47.00 [facility] [id number] [place] [address] 03003- 9549 Aug, [facility] [address] [facility] [id number] [address]- 0793 Jul, Chronic pain G89.29 [facility] [address] [facility] [id number], [place] [address]- 0295 Jul, [facility] [address] [address]- 3753 Jul, [facility] [address] [address]- 4858 Jul, [facility] [address] [address]- 9633 Jul, Recurrent UTI (urinary tract infection) N39.0 [facility] [address], [place] [address]- 8422 Jul, [facility] [id number] [place] [address] 23301- 3904 Jun, Chronic pain G89.29 [facility] [address] [address]- 7270 17 Jun, 2016 [facility] [address], [place] [address]- 2348 Jun, [facility] [address], [place] [address]- 1176 May, Chronic pain G89.29 [facility] [address] [address]- 8420 May, Weight loss R63.4 and Shortness of breath R06.02 [facility] [address] [address]- 2812 May, Chronic pain G89.29 ; Weight loss R63.4 and Tobacco abuse Z72.0 [facility] [address] [address]- 4113 May, [facility] [id number] [place] [address] 89022- 1188 May, Hypoxia R09.02 [facility] [id number] [place] [address] 44043- 8762 May, [facility] [id number] [place] [address] 48337- 2672 May, Pulmonary emphysema, unspecified emphysema type J43.9 [facility] [id number] [place] [address] 13032 -2537 May, [facility] [id number] [place] [address] 79263- 0458 May, [facility] [id number] [place] [address] 86050- 9856 May, [place] [id number] [place] [address] 76846- 0951 May, Chronic pain G89.29 ; Encounter for immunization Z23 ; Right anterior knee pain M25.561 and Cough R05 [place] [id number] [place] [address] 36045- 3196 Apr, Chronic pain G89.29 [place] [id number] [place] [address] 49974- 8573 Apr, [place] [id number] [place] [address] 42985- 8133 Apr, Generalized anxiety disorder F41.1 and Depression, unspecified depression type F32.9 [facility] [id number] [place] [address] 97628- 6072 Apr, Chronic pain G89.29 ; Hypokalemia E87.6 and Insomnia, unspecified type G47.00 [place] [id number] [place] [address] 07225- 4676 Apr, [place] [id number] [place] [address] 54451- 0919 Apr, Chronic pain G89.29 [facility] [address] [id number] [place] [address]- 3008 Apr, [facility] [address] [facility] [id number] [place] [address]- 1621 Mar, [facility] [place] [facility] [address] [facility] [id number] [place] [address]- 5583 Mar, Insomnia, unspecified type G47.00 [facility] [address] [facility] [id number] [place] [address]- 2563 Mar, Chronic pain G89.29 [facility] [place] [facility] [address] [id number] [place] [address]- 4983 Mar, [facility] [place] [facility] [address] [facility] [id number] [place] [address]- 1987 Feb, [facility] [place] [facility] [address] [facility] [id number] [place] [address]- 7891 Feb, [facility] [place] [facility] [address] [facility] [id number] [place] [address]- 2198 Feb, [facility] [place] [facility] [address] [facility] [id number] [place] [address]- 7658 Feb, [facility] [place] [facility] [address] [facility] [id number] [place] [address]- 9378 Feb, [facility] [place] [facility] [address] [facility] [id number] [place] [address]- 6204 29 Jan, 2015 [facility] [place] [facility] [address] [facility] [id number] [place] [address]- 3932 26 Jan, 2015 [facility] [place] [facility] [address] [id number] [place] [address]- 7082 20 Sep, 2015 [facility] [place] [facility] [address] [facility] [id number] [place] [address]- 9525 13 Sep, 2015 [facility] [place] [facility] [address] [facility] [id number] [place] [address]- 3537 12 Jan, 2015 [facility] [place] [facility] [address] [place] [id number] [place] [address] 78537- 3612 07 Jan, 2016 Chronic pain G89.29 [facility] [id number] [place] [address] 12121- 1084 Jan, Chronic pain G89.29 and Fibromyalgia M79.7 [facility] [id number] [place] [address] 34581- 3389 Dec, Depression, unspecified depression type F32.9 and Generalized anxiety disorder 300.02 [facility] [address] [place] [id number] [place] [address] 07266- 2208 Dec, Dysthymia F34.1 ; Insomnia, unspecified type G47.00 and Chronic pain G89.29 [facility] [address] [id number] [place] [address] 74486- 1092 Dec, Chronic pain G89.29 [facility] [address] [place] [id number] [place] [address] 81393- 0228 Dec, Insomnia, unspecified type G47.00 [facility] [address] [address] [id number] [place] [address] 27926- 2766 Dec, Fibromyalgia M79.7 and Chronic pain G89.29 [facility] [address] [id number] [place] [address] 86326- 2569 Dec, [facility] [address] [id number] [place] [address] 07682- 1657 Dec, [facility] [id number] [place] [address] 54668- 5342 Dec, [facility] [address] [id number] [place] [address] 82765- 8040 Dec, [facility] [id number] [place] [address] 83286- 1566 Dec, Chronic pain G89.29 [facility] [address] [id number] [place] [address] 14654- 6391 Dec, [place] [id number] [address]- 7986 Dec, [facility] [id number] [place] [address] 59305- 1780 Dec, [facility] [address] [id number] [place] [address] 61996- 6873 Dec, Chronic pain G89.29 and Dysthymia F34.1 [facility] [id number] [place] [address] 75605- 1504 Nov, [facility] [id number] [place] [address] 76417- 5911 Nov, Hypokalemia E87.6 and Chronic pain G89.29 [place] [address] [place] [id number] [place] [address] 38361- 3487 Nov, Back pain M54.9 and Pain in right knee M25.561 [facility] [id number] [place] [address] [phone] Nov, [facility] [id number] [place] [address] [phone]- 4143 Nov, Chronic pain G89.29 [facility] [id number] [place] [address] [phone]- [phone] Nov, Chronic pain G89.29 ; Weight loss R63.4 ; Bone pain M89.8X9 and Insomnia, unspecified type G47.00 [facility] [id number] [place] [address] [phone]- [phone] Nov, Chronic pain G89.29 [facility] [id number] [place] [address] 39090- 2295 Nov, Chronic pain G89.29 [facility] [id number] [place] [address] 63656- [phone] Oct, Chronic pain G89.29 [facility] [id number] [place] [address] [phone]- [phone] Oct, UTI symptoms R39.9 [facility] [id number] [place] [address] 45531- 8353 Oct, Chronic pain G89.29 [facility] [id number] [place] [address] 04938- 2544 Oct, Chronic pain G89.29 [facility] [id number] [place] [address] [phone]- [phone] Oct, Chronic pain G89.29 [facility] [id number] [place] [address] 71412- [phone] Oct, Right upper quadrant abdominal pain R10.11 [facility] [id number] [place] [address] [phone]- 2308 Oct, Chronic pain G89.29 [facility] [facility] [id number] [place] [address] 51402- 5149 Oct, [facility] [id number] [place] [address] 14020- 0901 September, Chronic pain G89.29 [facility] [id number] [place] [address] 29069- 1046 September, Dysuria R30.0 and Urinary tract infection without hematuria , site unspecified N39.0 [facility] [id number] [place] [address] 29203- 2874 September, [facility] [id number] [place] [address] 43027- 254 September, Dysuria R30.0 [facility] [id number] [place] [address] 49875- 7388 September, Chronic pain G89.29 [facility] [id number] [place] [address] 57832- 2701 September, Chronic pain G89.29 and Essential hypertension I10 [facility] [id number] [address] 5891 September, [facility] [id number] [place] [address] 61798- 2487 September, [facility] [id number] [place] [address] 58037- 3540 September, [facility] [id number] [place] [address] 50371- 6240 Aug, UTI symptoms R39.9 [facility] [id number] [place] [address] 93572- 6689 Aug, Dysuria R30.0 [facility] [id number] [place] [address] 90861- 7530 Aug, [facility] [id number] [place] [address] 79140- 6217 Aug, [facility] [id number] [place] [address] 03671- 2954 Aug, [facility] [id number] [place] [address] 30946- 9658 Aug, Chronic pain G89.29 [facility] [id number] [place] [address] 96495- 1872 Aug, Dysthymia F34.1 [facility] [id number] [place] [address] 08384- 6856 Aug, Conjunctivitis, unspecified conjunctivitis type, unspecified laterality H10.9 [facility] [id number] [place] [address] 39810- 9714 Jul, Chronic pain G89.29 ; Back pain M54.9 ; Tobacco abuse Z72.0 and Weight decrease R63.4 [facility] [id number] [place] [address] 39250- 1110 Jul, [facility] [id number] [place] [address] 49020- 8743 Jul, [facility] [address] [facility] [id number] [address] 3812 24 Jul, 2015 Chronic pain G89.29 [facility] [address] [facility] [id number] [place] [address]- 7622 22 Jul, 2015 [facility] [address] [place] [address]- 8971 21 Jul, 2015 [facility] [id number] [address]- 1659 18 Jul, 2015 [facility] [address] [place] [address]- 3624 17 Jul, 2015 [facility] [id number] [place] [address], [place] [address]- 5247 17 Jul, 2015 Chronic pain G89.29 [facility] [address] [place] [address]- 1809 16 Jul, 2015 Chronic pain G89.29 [facility] [address] [place] [address]- 6613 15 Jul, 2015 [facility] [address] [address]- 0782 10 Jul, 2015 [facility] [address] [address]- 3399 07 Jul, 2015 [facility] [address] [address] 1960 Jul, [facility] [address] [address]- 9446 Jun, [facility] [address] [address]- 0262 29 Jun, 2015 Depression, unspecified depression type F32.9 [facility] [address] [address]- 2596 26 Jun, 2015 Pain in right knee M25.561 [facility] [id number] [place] [address] 16266- 8719 Jun, Chronic pain G89.29 ; Back pain M54.9 ; Bone pain M89.8X9 and Weight loss R63.4 [facility] [id number] [place] [address] 27585- 6844 Jun, [address] [address] 12046- 3398 May, [facility] [address] 28791- 1339 May, UTI symptoms R39.9 ; Pain in right knee M25.561 ; Right low back pain, with sciatica presence unspecified M54.5 ; Right foot pain M79.671 ; Hypokalemia E87.6 and Screening, lipid Z13.220 [facility] [id number] [place] [address] 03166- 2233 May, [facility] [address] 57309- 6629 May, [facility] [address] 70353- 9299 Mar, [facility] [id number] [place] [address] 47576- 7156 Mar, [facility] [id number] [place] [address] 49604- 1068 Mar, Hypokalemia E87.6 [facility] [id number] [place] [address] 82892- 1352 16 Mar, 2015 Pain in right leg M79.604 ; Encounter for immunization Z23 ; Pain in right knee M25.561 and Hypokalemia E87.6 [facility] [id number] [place] [address] 19142- 1305 Jan, [facility] [address] 36588- 5275 Jan, [facility] [id number] [address]- 2559 Jan, Abdominal pain, generalized 789.07 [facility] [address] [address]- 1436 Jan, Abdominal pain, generalized 789.07 [facility] [address] [address]- 1636 Dec, [facility] [address] [address]- 9046 Dec, [facility] [id number] [place] [address] 71633- 1911 Dec, [facility] [address] [address]- 2256 Nov, Hallux valgus 735.0 and Hammertoe 735.4 [facility] [address] [address]- 3744 Nov, [facility] [address] [address]- 1411 Nov, Hallux valgus 735.0 and Hammer toe 735.4 [facility] [id number] [address]- 4146 Oct, [facility] [address] [address]- 2246 Oct, [facility] [id number] [address]- 2616 Oct, Pre-op evaluation V72.84 [facility] [address] [address]- 4706 Oct, [facility] [address] [address]- 2546 Oct, [facility] [id number] [address]- 7212 September, [facility] [id number] [address]- 8234 September, [facility] [id number] [place] [address]- 6558 September, Hallux valgus (acquired) 735.0 and Other hammer toe ( acquired) 735.4 [facility] [address] [facility] [id number] [place] [address], [place] [address]- 0728 Aug, [facility] [address] [facility] [id number] [place] [address]- 7705 Aug, [facility] [id number] [place] [address], [place] [address]- 0531 Jul, [facility] [id number] [address]- 7063 Jul, [facility] [id number] [place] [address]- 5993 Jul, [facility] [address] [place] [address]- 3056 Jul, [facility] [address], [place] [address]- 7713 Jul, [facility] [address], [place] [address]- 2916 Jul, [facility] [address], [place] [address]- 0023 Jul, [facility] [place] [facility] [id number] [address]- 8851 Jul, [facility] [place] [facility] [address], [place] [address]- 4541 Jun, [facility] [place] [facility] [address] [facility] [id number], [place] [address]- 1724 Jun, [facility] [place] [facility] [address], [place] [address]- 9560 Jun, [facility] [place] [facility] [address] [id number] [place] [address]- 2921 Jun, [facility] [place] [facility] [address] [id number] [place] [address]- 6764 Jun, [facility] [place] [facility] [address] [id number] [place] [address]- 9545 Jun, 2014 [facility] [place] [facility] [address] [id number] [place] [address]- 2920 Jun, 2014 [facility] [place] [facility] [address] [id number] [place] [address]- 1390 Jun, [facility] [place] [facility] [address] [id number] [place] [address]- 5693 Jun, [facility] [place] [facility] [address] [id number] [place] [address]- 5025 Jun, [facility] [place] [facility] [address] [id number] [place] [address]- 4584 May, [facility] [place] [facility] [address] [id number] [place] [address]- 5139 May, [facility] [place] [facility] [address] [facility] [id number] [place] [address]- 7023 May, [facility] [place] [facility] [address] [id number] [place] [address]- 9660 May, [facility] [place] [facility] [address] [id number], [place] [address]- 3403 May, [facility] [place] [facility] [address] [id number] [place] [address]- 3547 May, [facility] [place] [facility] [address] [id number] [place] [address]- 1562 May, [facility] [place] [facility] [address] [id number], [place] [address]- 3313 May, [facility] [place] [facility] [address] [id number] [place] [address]- 0678 May, [facility] [place] [facility] [address] [id number] [place] [address]- 5686 May, [facility] [place] [facility] [address] [id number] [place] [address]- 4753 May, [facility] [place] [facility] [address] [id number] [place] [address]- 8154 May, [facility] [place] [facility] [address] [id number] [place] [address]- 1874 May, [facility] [place] [facility] [address] [id number] [place] [address]- 5762 May, [facility] [place] [facility] [address] [id number] [place] [address]- 8655 May, [facility] [place] [facility] [address] [id number] [place] [address]- 4805 May, [facility] [place] [facility] [address] [id number] [place] [address]- 2707 May, [facility] [place] [facility] [address] [id number] [place] [address]- 7273 May, [facility] [place] [facility] [address] [id number] [place] [address]- 3986 Apr, [facility] [place] [facility] [address] [id number] [place] [address]- 2884 Apr, [facility] [place] [facility] [address] [id number] [place] [address]- 7661 Apr, [facility] [place] [facility] [address] [id number] [place] [address]- 7239 Apr, [facility] [place] [facility] [address] [id number] [place] [address]- 0005 Apr, [facility] [place] [facility] [address] [id number], [place] [address]- 1896 Apr, [facility] [place] [facility] [address] [id number] [place] 1395 Apr, [facility] [place] [facility] [address] [id number] [place] [address]- 3813 Apr, [facility] [place] [facility] [address] [id number] [place] [address]- 2222 Apr, [facility] [place] [facility] [address] [id number] [place] [address]- 7369 Mar, [facility] [place] [facility] [address] [id number] [place] [address]- 5123 Mar, [facility] [place] [facility] [address] [id number] [place] [address]- 6199 Mar, [facility] [place] [facility] [address] [id number] [place] [address]- 2061 Mar, [facility] [place] [facility] [address] [id number] [place] [address]- 0684 Mar, [facility] [place] [facility] [address] [id number] [place] [address]- 7618 Feb, [facility] [place] [facility] [address] [id number] [place] [address]- 2500 Feb, [facility] [place] [facility] [address] [id number], [place] [address]- 4805 Feb, [facility] [place] [facility] [address] [id number], [place] [address]- 0465 Feb, [facility] [place] [facility] [address] [id number] [place] 3208 Feb, [facility] [place] [facility] [address] [id number] [place] 5046 Feb, [facility] [place] [facility] [address] [id number] 2406 Feb, [facility] [place] [facility] [address] [id number] [place] [address]- 8658 09 Feb, 2013 [facility] [place] [facility] [address] [id number] [place] [address]- 8560 Feb, 2013 [facility] [place] [facility] [address] [id number] [place] [address]- 4173 Feb, 2013 [facility] [place] [facility] [address] [id number] [place] [address]- 9711 Feb, 2013 [facility] [place] [facility] [address] [id number] [place] [address]- 9465 Feb, 2013 [facility] [place] [facility] [address] [id number] [place] [address]- 8837 Feb, 2013 [facility] [place] [facility] [address] [id number] [place] [address]- 3205 Feb, 2013 [facility] [place] [facility] [address] [id number] [place] [address]- 6651 Feb, 2013 [facility] [place] [facility] [address] [id number] [place] [address]- 9389 Feb, 2013 [facility] [place] [facility] [address] [id number] [place] [address]- 3688 23 Jan, 2013 [facility] [place] [facility] [address] [id number] [place] [address]- 4915 23 Sep, 2013 [facility] [place] [facility] [address] [id number] [place] [address]- 6774 20 Sep, 2013 [facility] [place] [facility] [address] [id number] [place] [address]- 7411 19 Sep, 2013 [facility] [place] [facility] [address] [id number] [place] [address]- 1657 11 Sep, 2013 [facility] [place] [facility] [address] [id number] [place] [address]- 6136 11 Sep, 2013 [facility] [place] [facility] [address] [id number] [place] [address]- 3745 Jan, [facility] [place] [facility] [address] [id number] [place] [address]- 7630 Jan, [facility] [place] [facility] [address] [id number] [place] [address]- 4096 Dec, [facility] [place] [facility] [address] [id number] [place] [address]- 7121 Dec, [facility] [place] [facility] [address] [id number] [place] [address]- 5092 Nov, [facility] [place] [facility] [address] [id number] [place] [address]- 7592 Nov, [facility] [place] [facility] [address] [id number] [place] [address]- 2809 Nov, [facility] [place] [facility] [address] [id number] [place] [address]- 5441 Nov, [facility] [place] [facility] [address] [id number] [place] [address]- 2431 Nov, [facility] [place] [facility] [address] [id number] [place] [address]- 0590 Nov, [facility] [place] [facility] [address] [id number] [place] [address]- 1295 Nov, [facility] [place] [facility] [address] [id number] [place] [address]- 9522 Nov, [facility] [place] [facility] [address] [id number] [place] [address]- 5245 Nov, [facility] [place] [facility] [address] [id number] [place] [address]- 6949 Oct, [facility] [place] [facility] [address] [id number] [place] [address]- 7976 Oct, [facility] [place] [facility] [address] [id number] [place] [address]- 4547 Oct, [facility] [place] [facility] [address] [id number] [place] [address]- 4058 Oct, [facility] [address] [id number] [place] [address]- 0370 Oct, [facility] [place] [facility] [address] [id number] [place] [address]- 1790 Oct, [facility] [place] [facility] [address] [id number] [place] [address]- 4594 September, [facility] [place] [facility] [address] [id number] [place] [address]- 4805 September, [facility] [place] [facility] [address] [id number] [place] [address]- 1723 September, [facility] [place] [facility] [address] [id number] [place] [address]- 5803 September, [facility] [place] [facility] [address] [id number] [place] [address]- 5748 September, [facility] [place] [facility] [address] [id number] [place] [address]- 6306 September, [facility] [place] [facility] [address] [id number] [place] [address]- 2663 September, [facility] [place] [facility] [address] [id number] [place] [address] September, [facility] [place] [facility] [address] [id number] [place] [address] September, [facility] [place] [facility] [address] [id number] [place] [address] September, [facility] [place] [facility] [address] [id number] [place] [address] September, [facility] [place] [facility] [address] [id number] [place] [address] September, [facility] [place] [facility] [address] [id number] [place] [address] September, [facility] [place] [facility] [address] [id number] [place] [address]68 September, [facility] [place] [facility] [address] [id number] [place] [address] September, [facility] [place] [facility] [address] [id number] [place] [address] September, [facility] [place] [facility] [address] [id number] [place] [address] September, [facility] [place] [facility] [address] [id number] [place] [address] September, [facility] [place] [facility] [address] [id number] [place] [address]- [address] September, [facility] [place] [facility] [address] [id number] [place] [address] September, [facility] [place] [facility] [address] [id number] [place] [address] Aug, [facility] [place] [facility] [address] [id number] [place] [address] Aug, [facility] [place] [facility] [address] [id number] [place] [address] Aug, [facility] [place] [facility] [address] [id number] [place] [address] Aug, [facility] [place] [facility] [address] [id number] [place] [address] Aug, [facility] [place] [facility] [address] [id number] [place] [address]- [address] 18 Aug, 2013 [facility] [place] [facility] [address] [id number] [place] [address]- [address] 16 Aug, 2013 [facility] [place] [facility] [address] [id number] [place] [address] 16 Aug, 2013 [facility] [place] [facility] [address] [id number] [place] [address]- [address] 15 Aug, 2013 [facility] [place] [facility] [address] [id number] [place] [address] 15 Aug, 2013 [facility] [place] [facility] [address] [id number] [place] [address]- [address] 14 Aug, 2013 [facility] [place] [facility] [address] [id number] [place] [address] Aug, [facility] [place] [facility] [address] [id number] [place] [address] Aug, [facility] [place] [facility] [address] [id number] [place] [address] Aug, [facility] [place] [facility] [address] [id number] [place] [address] Aug, [facility] [place] [facility] [address] [id number] [place] [address] Jul, [facility] [place] [facility] [address] [id number] [place] [address] 31 Jul, 2013 [facility] [place] [facility] [address] [id number] [place] [address] 27 Jul, 2013 [facility] [place] [facility] [address] [id number] [place] [address]- [address] 27 Jul, 2013 [facility] [place] [facility] [address] [id number] [place] [address] Jul, [facility] [place] [facility] [address] [id number] [place] [address]- [address] 20 Jul, 2013 [facility] [place] [facility] [address] [id number] [place] [address] 18 Jul, 2013 [facility] [place] [facility] [address] [id number] [place] [address]- [address] 18 Jul, 2013 [facility] [place] [facility] [address] [id number] [place] [address]- [address] 06 Jul, 2013 [facility] [place] [facility] [address] [id number] [place] [address]- [address] 06 Jul, 2013 [facility] [place] [facility] [address] [id number] [place] [address] Jul, [facility] [place] [facility] [address] [id number] [place] [address] Jul, [facility] [place] [facility] [address] [id number] [place] [address] Jul, [facility] [place] [facility] [address] [id number] [place] [address]- [address] Jul, [facility] [place] [facility] [address] [id number] [place] [address] Jul, [facility] [place] [facility] [address] [id number] [place] [address] Jun, [facility] [place] [facility] [address] [id number] [place] [address]- [address] Jun, [facility] [place] [facility] [address] [id number] [place] [address]- [address] Jun, [facility] [place] [facility] [address] [id number] [place] [address]- [address] Jun, [facility] [place] [facility] [address] [id number] [place] [address] Jun, [facility] [place] [facility] [address] [id number] [place] [address]- 45[address] Jun, [facility] [place] [facility] [address] [id number] [place] [address] May, [facility] [place] [facility] [address] [id number] [place] [address] 2098 May, [facility] [place] [facility] [address] [id number] [place] [address] May, [facility] [place] [facility] [address] [id number] [place] [address] May, [facility] [address] [id number] [place] [address] 8486 May, [facility] [place] [facility] [address] [id number] [place] [address] 9487 May, [facility] [place] [facility] [address] [id number] [place] [address] 5356 May, [facility] [place] [facility] [address] [id number] [place] [address] 2721 May, [facility] [place] [facility] [address] [id number] [place] [address] 9087 May, [facility] [place] [facility] [address] [id number] [place] [address]- 7771 May, [facility] [place] [facility] [address] [id number] [place] [address]- 1611 May, [facility] [place] [facility] [address] [id number] [place] [address]- 0980 May, [facility] [place] [facility] [address] [id number] [place] [address]- 7368 May, [facility] [place] [facility] [address] [id number] [place] [address]- 6665 May, [facility] [place] [facility] [address] [id number] [place] [address]- 3867 May, [facility] [place] [facility] [address] [id number] [place] [address]- 6211 Apr, [facility] [place] [facility] [address] [id number] [place] [address]- 8814 Apr, [facility] [place] [facility] [address] [id number] [place] [address]- 3401 Apr, [facility] [place] [facility] [address] [id number] [place] [address]- 2203 Apr, [facility] [place] [facility] [address] [id number] [place] [address]- 7033 Apr, [facility] [address] [id number] [place] [address]- 3521 Apr, [facility] [address] [id number] [place] [address]- 6948 Apr, [facility] [address] [id number] [place] [address]- 9869 Apr, [facility] [address] [id number] [place] [address]- 9592 Apr, [facility] [address] [id number] [place] [address]- 2116 Apr, [facility] [address] [id number] [place] [address]- 4232 Mar, [facility] [address] [id number], [place] [address] 1678 Mar, [facility] [address] [id number], [place] [address]- 1280 Mar, [facility] [address] [id number] [place] [address]- 0325 Mar, [facility] [address] [id number] [place] [address]- 4678 Mar, [facility] [address] [id number], [place] [address] 6587 Mar, [facility] [place] [facility] [address] [id number], [place] [address]- 5873 Mar, [facility] [place] [facility] [address] [id number], [place] [address]- 6077 Mar, [facility] [place] [facility] [address] [id number], [place] [address]- 6648 Mar, [facility] [place] [facility] [address] [id number], [place] [address]- 3535 Mar, [facility] [place] [facility] [address] [id number] [place] [address]- 7315 20 Mar, 2013 [facility] [place] [facility] [address] [id number] [place] [address]- 2077 20 Mar, 2013 [facility] [place] [facility] [address] [id number] [place] [address]- 0981 19 Mar, 2013 [facility] [place] [facility] [address] [id number] [place] [address]- 4376 19 Mar, 2013 [facility] [place] [facility] [address] [id number] [place] [address]- 5051 18 Mar, 2013 [facility] [place] [facility] [address] [id number] [place] [address]- 5046 18 Mar, 2013 [facility] [place] [facility] [address] [id number] [place] [address]- 8860 14 Mar, 2013 [facility] [place] [facility] [address] [id number] [place] [address]- 1622 14 Mar, 2013 [facility] [place] [facility] [address] [id number] [place] [address]- 8010 Mar, [facility] [place] [facility] [address] [id number] [place] [address]- 3723 Mar, [facility] [place] [facility] [address] [id number] [place] [address]- 1993 Mar, [facility] [place] [facility] [address] [id number] [place] [address]- 4687 Mar, [facility] [place] [facility] [address] [id number] [place] [address]- 7232 Mar, [facility] [place] [facility] [address] [id number] [place] [address]- 2760 Feb, [facility] [place] [facility] [address] [id number] [place] [address]- 3183 18 Feb, 2013 [facility] [place] [facility] [address] [id number] [place] [address]- 7891 16 Feb, 2013 [facility] [place] [facility] [address] [id number] [place] [address]- 2475 16 Feb, 2013 [facility] [place] [facility] [address] [id number] [place] [address]- 2069 15 Feb, 2013 [facility] [place] [facility] [address] [id number] [place] [address]- 8706 Feb, [facility] [place] [facility] [address] [id number] [place] [address]- 7354 Feb, [facility] [place] [facility] [address] [id number] [place] [address]- 8968 Feb, [facility] [place] [facility] [address] [id number] [place] [address]- 7210 04 Feb, 2013 [facility] [place] [facility] [address] [id number] [place] [address]- 5111 Feb, [facility] [place] [facility] [address] [id number], [place] [address]- 2651 30 Jan, 2013 [facility] [place] [facility] [address] [id number] [place] [address]- 8834 26 Jan, 2013 [facility] [place] [facility] [address] [id number] [place] [address]- 9262 24 Jan, 2013 [facility] [place] [facility] [address] [id number], [place] [address]- 8358 23 Jan, 2012 [facility] [place] [facility] [address] [id number], [place] [address]- 2162 17 Jan, 2013 [facility] [place] [facility] [address] [id number] [place] [address]- 1317 28 Dec, 2012 [facility] [place] [facility] [address] [id number], [place] [address]- 3657 Dec, [facility] [place] [facility] [address] [id number] [place] [address]- 0522 Dec, [facility] [place] [facility] [address] [id number] [place] [address]- 6240 Dec, [facility] [address] [id number] [place] [address]- 6386 Dec, [facility] [address] [id number] [place] [address]- 5950 Dec, [facility] [address] [id number] [place] [address]- 9670 Dec, [facility] [address] [id number] [place] [address]- 7331 Nov, [facility] [address] [id number] [place] [address]- 8277 Nov, [facility] [address] [id number] [place] [address]- 6028 Nov, [facility] [address] [id number] [place] [address]- 4740 Nov, [facility] [address] [id number] [place] [address]- 6780 Nov, [facility] [address] [id number] [place] [address]- 8269 Oct, [facility] [address] [id number] [place] [address]- 1118 Oct, [facility] [address] [id number] [place] [address]- 8009 Oct, [facility] [address] [id number] [place] [address]- 4755 September, [facility] [place] [facility] [address] [id number] [place] [address]- 7332 September, [facility] [place] [facility] [address] [id number] [place] [address]- 5374 September, [facility] [address] [id number] [place] [address]- 6704 September, [facility] [address] [id number] [place] [address]- 3463 September, [facility] [address] [id number] [place] [address]- 4917 September, [facility] [address] [id number] [place] [address]- 6014 September, [facility] [address] [id number] [place] [address]- 9422 Aug, [facility] [address] [id number] [place] [address]- 7959 Aug, [facility] [address] [id number] [place] [address]- 3317 Aug, [facility] [address] [id number] [place] [address]- 1839 29 Jul, 2012 [facility] [address] [id number] [place] [address]- 4683 Jul, [facility] [address] [id number] [place] [address]- 2743 Jul, [facility] [address] [id number] [place] [address]- 6456 Jul, [facility] [address] [id number] [place] [address]- 6811 18 Jul, 2012 [facility] [address] [id number] [place] [address]- 0370 18 Jul, 2012 [facility] [address] [id number] [place] [address]- 3021 13 Jul, 2012 [facility] [place] [facility] [address] [id number] [place] [address]- 0497 28 Jun, 2012 [facility] [address] [id number] [place] [address]- 2381 27 Jun, 2012 [facility] [address] [id number] [place] [address]- 6153 Jun, [facility] [address] [id number] [place] [address] 2546 Jun, [facility] [address] [id number] [place] [address] 2546 Jun, [facility] [address] [id number] [place] [address] 2546 Jun, [facility] [place] [facility] [address] [id number] [place] [address] 2546 Jun, [facility] [address] [id number] [place] [address]- 5876 Jun, [facility] [address] [id number] [place] [address] 2546 Jun, [facility] [address] [id number] [place] [address]- 5679 Jun, [facility] [address] [id number] [place] [address]- 2861 May, [facility] [address] [id number] [place] [address]- 8887 May, [facility] [address] [facility] [id number] [place] [address]- 9907 May, [facility] [address] [id number] [place] [address] 2546 May, [facility] [address] [id number] [place] [address] 2543 May, [facility] [place] [facility] [address] [id number] [place] [address]- 0723 May, [facility] [place] [facility] [address] [id number] [place] [address] 2546 Apr, [facility] [address] [id number] [place] [address]- 3471 Apr, [facility] [place] [facility] [address] [id number] [place] [address]- 7466 Apr, [facility] [place] [facility] [address] [id number] [place] [address]- 2130 Apr, [facility] [place] [facility] [address] [id number] [place] [address]- 6411 Apr, [facility] [place] [facility] [address] [id number] [place] [address]- 2460 Apr, [facility] [place] [facility] [address] [id number] [place] [address]- 2604 Apr, [facility] [place] [facility] [address] [id number] [place] [address]- 7653 Mar, [facility] [place] [facility] [address] [id number] [place] [address]- 4825 Mar, [facility] [place] [facility] [address] [id number] [place] [address]- 7266 27 Mar, 2012 [facility] [place] [facility] [address] [id number] [place] [address]- 5779 Mar, [facility] [place] [facility] [address] [facility] [id number] [place] [address]- 8612 Mar, [facility] [place] [facility] [address] [facility] [id number], [place] [address]- 5757 18 Mar, 2012 [facility] [place] [facility] [address] [id number], [place] [address]- 1330 18 Mar, 2012 [facility] [place] [facility] [address] [id number] [place] [address]- 1155 16 Mar, 2012 [facility] [place] [facility] [address] [id number] [place] [address]- 8742 16 Mar, 2012 [facility] [place] [facility] [address] [facility] [id number], [place] [address]- 1213 16 Mar, 2012 [facility] [place] [facility] [address] [id number], [place] [address]- 7002 Mar, [facility] [place] [facility] [address] [id number] [place] [address]- 0211 Mar, [facility] [place] [facility] [address] [id number] [place] Mar, [facility] [place] [facility] [address] [facility] [id number] [place] [address]- 5800 Mar, [facility] [place] [facility] [address] [id number] [place] [address]- 0341 Mar, [facility] [place] [facility] [address] [id number] [place] [address]- 5554 Mar, [facility] [place] [facility] [address] [facility] [id number] [place] [address]- 8394 Mar, [facility] [place] [facility] [address] [facility] [id number] [place] [address]- 9319 Feb, [facility] [place] [facility] [address] [facility] [id number] [place] [address]- 5786 Feb, [facility] [place] [facility] [address] [facility] [id number], [place] [address]- 3960 Feb, [facility] [place] [facility] [address] [facility] [id number], [place] [address]- 9671 Feb, [facility] [place] [facility] [address] [facility] [id number], [place] [address]- 7663 Feb, [facility] [place] [facility] [address] [facility] [id number], [place] [address]- 6340 Feb, [facility] [place] [facility] [address] [facility] [id number], [place] [address]- 4113 Feb, [facility] [place] [facility] [address] [facility] [id number], [place] [address]- 0782 Feb, [facility] [place] [facility] [address] [facility] [id number], [place] [address]- 6969 Feb, [facility] [place] [facility] [address] [id number] [place] [address]- 0759 04 Feb, 2012 [facility] [place] [facility] [address] [id number] [place] [address]- 7443 Feb, [facility] [place] [facility] [address] [id number] [place] [address] 2546 27 Jan, 2011 [facility] [place] [facility] [address] [id number] [place] [address] 2546 25 Jan, 2011 [facility] [place] [facility] [address] [id number] [place] [address]- 1741 13 Jan, 2012 [facility] [place] [facility] [address] [id number] [place] [address]- 5524 12 Jan, 2012 [facility] [place] [facility] [address] [id number] [place] [address]- 4285 07 Jan, 2012 [facility] [place] [facility] [address] [id number] [place] [address]- 4788 31 Dec, 2011 [facility] [place] [facility] [address] [id number] [place] [address]- 2121 24 Dec, 2011 [facility] [place] [facility] [address] [id number] [place] [address]- 9032 Dec, [facility] [place] [facility] [address] [id number] [place] [address]- 4904 Dec, [facility] [place] [facility] [address] [id number] [place] [address]- 3467 16 Dec, 2011 [facility] [place] [facility] [address] [id number] [place] [address]- 254 Dec, [facility] [place] [facility] [address] [id number] [place] [address]- 7896 Dec, [facility] [place] [facility] [address] [id number] [place] [address] 2546 Dec, [facility] [place] [facility] [address] [id number] [place] [address]- 6018 Nov, [facility] [place] [facility] [address] [id number] [place] [address]- 9137 Nov, [facility] [place] [facility] [address] [id number] [place] [address]- 7857 Nov, [facility] [place] [facility] [address] [id number] [place] [address]- 2100 Nov, [facility] [place] [facility] [address] [id number] [place] [address]- 1934 Nov, [facility] [place] [facility] [address] [id number] [place] [address]- 6161 Oct, [facility] [place] [facility] [address] [id number] [place] [address]- 6826 Oct, [facility] [place] [facility] [address] [id number] [place] [address]- 6785 September, [facility] [place] [facility] [address] [id number] [place] [address]- 1938 September, [facility] [place] [facility] [address] [id number] [place] [address]- 6871 September, [facility] [place] [facility] [address] [id number] [place] [address]- 1588 September, [facility] [place] [facility] [address] [id number] [place] [address]- 2534 September, [facility] [place] [facility] [address] [id number] [place] [address]- 5859 September, [facility] [place] [facility] [address] [id number] [place] [address]- 6696 September, [facility] [place] [facility] [address] [id number] [place] [address]- 7482 September, [facility] [place] [facility] [address] [id number] [place] [address]- 4923 September, [facility] [place] [facility] [address] [id number] [place] [address]- 8366 September, [facility] [address] [id number] [place] [address]- 6221 September, [facility] [address] [facility] [id number] [place] [address]- 8203 September, [facility] [address] [facility] [id number] [place] [address] September, [facility] [address] [id number] [place] [address] September, [facility] [address] [id number] [place] [address] 24 Aug, 2011 [facility] [address] [facility] [id number] [place] [address] Aug, [facility] [address] [id number] [place] [address] 13 Aug, 2011 [facility] [address] [facility] [id number] [place] [address] Aug, [facility] [id number] [place] [address] 23 Jul, 2011 [facility] [address] [id number] [place] [address] 13 Jul, 2011 [facility] [address] [id number] [place] [address] 13 Jul, 2011 [facility] [address] [id number] [address] 28 Jun, [address] [facility] [address] [id number] [id number] 26 Jun, 2011 [facility] [address] [id number] [place] [address] 13 Jun, 2011 [facility] [place] [facility] [address] [id number] [address] 10 Jun, 2011 [facility] [place] [facility] [address] [id number] [place] [address]66 07 Jun, 2011 [facility] [address] [id number] [place] [address] Jun, [facility] [place] [facility] [address] [id number] [place] [address] Jun, [facility] [place] [facility] [address] [id number] [place] [address] Jun, [facility] [address] [id number] [place] [address]35 May, [facility] [address] [id number] [place] [address] May, [facility] [address] [id number] [place] [address] May, [facility] [address] [id number] [place] [address]40 May, [facility] [address] [id number] [place] [address] 1814 May, [facility] [address] [id number] [place] [address] 1291 May, [facility] [place] [facility] [address] [id number] [place] [address] May, [facility] [place] [facility] [address] [id number] [place] [address] May, [facility] [place] [facility] [address] [id number] [place] [address]883 May, [facility] [place] [facility] [address] [id number] [place] [address]226 May, [facility] [place] [facility] [address] [id number] [place] [address] 8895 17 May, 2011 [facility] [place] [facility] [address] [id number], [place] [address] 13 May, 2011 [facility] [place] [facility] [address] [id number] [place] [address] 8494 May, [facility] [place] [facility] [address] [id number] [place] [address] 73[address] May, [facility] [place] [facility] [address] [id number] [place] [address] 2722 30 Apr, 2011 [facility] [place] [facility] [address] [id number] [place] [address] 8044 16 Apr, 2011 [facility] [place] [facility] [address] [id number] [place] [address]84 Apr, [facility] [place] [facility] [address] [id number] [place] [address] 7916 Mar, [facility] [place] [facility] [address] [id number] [place] [address] 0671 Mar, [facility] [place] [facility] [address] [id number] [place] [address] 2310 31 Feb, 2011 [facility] [place] [facility] [address] [id number] [place] [address] 4979 Feb, [facility] [place] [facility] [address] [id number] [place] [address] 9521 Feb, [facility] [place] [facility] [address] [id number] [place] [address] Feb, [facility] [place] [facility] [address] [id number] [place] [address]- 0780 13 Feb, 2011 [facility] [place] [facility] [address] [id number] [place] [address]195 28 Apr, 2010 [facility] [place] [facility] [address] [id number] [place] [address] 22 Apr, 2010 [facility] [place] [facility] [address] [id number] [place] [address] 8241 16 Apr, 2010 [facility] [place] [facility] [address] [id number] [place] [address]- [address]649 15 Apr, 2010 [facility] [place] [facility] [address] [id number] [place] [address] 15 Apr, 2010 [facility] [place] [facility] [address] [id number] [place] [address] 2546 Apr, [facility] [place] [facility] [address] [id number] [place] [address] 1826 Mar, [facility] [place] [facility] [address] [id number] [place] [address] 2545 Mar, [facility] [place] [facility] [address] [id number] [place] [address]061 Mar, [facility] [place] [facility] [address] [id number] [place] [address]- [address] Feb, [facility] [place] [facility] [address] [id number] [place] [address]- 118[address] Feb, [facility] [place] [facility] [address] [id number] [place] [address]- 5947 Feb, [facility] [place] [facility] [address] [id number] [place] [address]- [address]121 Feb, [facility] [place] [facility] [address] [id number] [place] [address]- [address]679 Dec, [facility] [place] [facility] [address] [id number] [place] [address]- 8798 Dec, [facility] [place] [facility] [address] [id number] [place] [address]- 9306 Oct, [facility] [place] [facility] [address] [id number] [place] [address]- 5790 Mar, [facility] [place] [facility] [address] [id number] [place] [address] 6944 Mar, [facility] [place] [facility] [address] [id number] [place] [address]161 September, IMMUNIZATIONS No Known Immunizations SOCIAL HISTORY Never Assessed REASON FOR VISIT requesting return call PLAN OF CARE VITAL SIGNS MEDICATIONS Medication Instructions Dosage Frequency Start Date End Date Duration Status Cipro 500 mg Orally Twice a day 1 tablet 12h Apr, Apr, 07 days Active RESULTS No Results PROCEDURES [...]
--- OUTSIDE RECORDS SUMMARY | 2017-11-27 15:28 | XMS REPORT ---
Author Author VALERIE ZAVALA [facility] Address [address] [place] [address] Care Team Providers Care Commercial Announcer Name Role Phone VALERIE ZAVALA Unavailable PROBLEMS Type Condition ICD9-CM Code KFE90-UA Code Onset Dates Condition Status SNOMED Code Problem Generalized anxiety disorder F41.1 Active 81149221 Problem Hypokalemia E87.6 Active 632937410 Problem Right low back pain, with sciatica presence unspecified M54.5 Active 662032691 Problem Post-traumatic stress disorder, chronic F43.12 Active 18825049 Problem Pain in right knee M25.561 Active 09463509 Problem Gastroesophageal reflux disease without esophagitis K21.9 Active 298116792 Problem UTI symptoms R39.9 Active 15640787 Problem Essential hypertension I10 Active 90787928 Problem Anxiety F41.9 Active 34994886 Problem Neuropathy G62.9 Active 527019052 Problem Other chronic pain G89.29 Active 11899560 Problem Generalized abdominal pain R10.84 Active 589670108 Problem Chronic pain G89.29 Active 61572119 Problem Back pain M54.9 Active 186506617 Problem Right foot pain M79.671 Active 77489251 Problem Panic attacks F41.0 Active 798212933 Problem Other emphysema J43.8 Active 42790338 Problem Kidney stones N20.0 Active 92798588 Problem Renal calculus, right N20.0 Active 29232789 Problem Weight decrease R63.4 Active 545666503 Problem Tobacco abuse Z72.0 Active 25751232 Problem Bone pain M89.8X9 Active 12859618 Problem Depression, unspecified depression type F32.9 Active 89838842 Problem Insomnia, unspecified type G47.00 Active 762380975 Problem Pulmonary emphysema, unspecified emphysema type J43.9 Active 19082074 Problem Right upper quadrant abdominal pain R10.11 Active 959124677 Problem Weight loss R63.4 Active 884862100 ALLERGIES No Information ENCOUNTERS Encounter Location Date Diagnosis [facility] [id number] [place] [address] 16078- 7187 Nov, [facility] [id number] [place] [address] 13933- 3144 Oct, [facility] [id number] [place] [address] 06570- 9766 Oct, [facility] [address] 98731- 6782 Oct, Medicare welcome exam Z00.00 [facility] [address] 39378- 1301 September, Back pain M54.9 and Right anterior knee pain M25.561 [facility] [address] 10966- 3691 September, [facility] [address] 48969- 6804 September, [facility] [id number] [place] [address] 28121- 8713 September, Essential hypertension I10 [facility] [id number] [place] [address] 11425- 3961 September, [facility] [id number] [place] [address] 47250- 3823 September, RLQ abdominal pain R10.31 ; Low back pain M54.5 and Other chronic pain G89.29 [facility] [id number] [place] [address] 85101- 0228 Aug, Medicare welcome exam Z00.00 [facility] [id number] [place] [address] 48174- 3398 Aug, [facility] [id number] [place] [address] 94598- 3403 Aug, Acute pyelonephritis N10 and Medicare welcome exam Z00.00 [facility] [address] [address] Aug, Dysuria R30.0 and Acute pyelonephritis N10 [facility] [id number] [place] [address] 91499- 6667 Aug, [facility] [id number] [place] [address] 51981- 6316 Aug, [facility] [id number] [place] [address] 85759- 5957 Aug, [facility] [id number] [place] [address] 96321- 3436 Aug, [facility] [id number] [place] [address] 13696- 8866 Jul, [facility] [id number] [place] [address] 66583- 1717 Jul, Renal calculus, right N20.0 and Medicare welcome exam Z00.00 [facility] [id number] [place] [address] 83147 -8484 Jul, Dysuria R30.0 and Renal calculus, right N20.0 [facility] [id number] [place] [address] 62479- 8357 Jul, Medicare welcome exam Z00.00 [facility] [id number] [place] [address] 55419- 2296 Jun, Gastroesophageal reflux disease without esophagitis K21.9 and Generalized abdominal pain R10.84 [facility] [id number] [place] [address] 76993- 8238 Jun, Medicare welcome exam Z00.00 [facility] [id number] [place] [address] 06554- 6712 Jun, [facility] [id number] [place] [address] 35252- 0088 Jun, Medicare welcome exam Z00.00 and Encounter for screening mammogram for malignant neoplasm of breast Z12.31 [facility] [id number] [place] [address] 61588- 3245 02 Jun, 2017 Chronic pain G89.29 [facility] [id number] [place] [address] 31470- 7783 May, [facility] [address] 01522- 5754 May, Pelvic pain R10.2 [facility] [id number] [place] [address] 74503- 7046 May, Pelvic pain R10.2 [facility] [place] [id number] [place] [address] 89141 -6165 May, Renal calculus, right N20.0 [facility] [address] 62235- 8811 May, Hematuria, unspecified type R31.9 and Nephrolithiasis N20.0 [facility] [id number] [place] [address] 98791 -8264 May, Dysuria R30.0 and Nephrolithiasis N20.0 [facility] [id number] [place] [address] 00859- 1456 May, [facility] [id number] [place] [address] 64666 -5995 May, Abdominal pain R10.9 and Kidney stone N20.0 [facility] [id number] [place] [address] 89652- 7810 May, [facility] [address] 10617- 6798 May, Chronic pain G89.29 and Panic attacks F41.0 [facility] [id number] [place] [address] 11620- 1743 May, Urinary tract infection without hematuria, site unspecified N39.0 [facility] [address] [address] 1941 Apr, Right lower quadrant abdominal pain R10.31 and Abnormal serum lipase level R74.8 [facility] [address], [place] [address]- 7196 Apr, Recurrent urinary tract infection N39.0 [facility] [id number] [place] [address] 57363- 6174 Apr, UTI symptoms R39.9 ; Recurrent urinary tract infection N39.0 and Pelvic pain R10.2 [facility] [id number] [place] [address] 92844- 2504 Apr, Chronic pain G89.29 and Panic attacks F41.0 [facility] [id number] [place] [address] 47934- 6060 Apr, Dysuria R30.0 [facility] [id number] [place] [address] 51730- 5790 Apr, [facility] [id number] [place] [address] 75042- 3058 Apr, Dysuria R30.0 and Urinary tract infection without hematuria , site unspecified N39.0 [facility] [address], [place] [address]- 2279 Mar, UTI symptoms R39.9 [facility] [address] [address]- 1531 Mar, [facility] [id number] [place] [address] 04285- 8583 Mar, Panic attacks F41.0 and Chronic pain G89.29 [facility] [address] [address]- 7816 Mar, [facility] [id number] [place] [address] 08642- 6147 Mar, Dysuria R30.0 [facility] [id number] [place] [address] 95145- 8169 Mar, Dysuria R30.0 [facility] [id number] [place] [address] 44568- 3579 Feb, Chronic pain G89.29 ; Shortness of breath R06.02 ; Weight loss R63.4 ; Encounter for immunization Z23 ; Bone pain M89.8X9 ; Right anterior knee pain M25.561 and Cough R05 [facility] [id number] [place] [address] 08638- 5787 Feb, Shortness of breath R06.02 [facility] [id number] [place] [address] 19572- 1591 Feb, [facility] [address] 51628- 1278 Feb, Panic attacks F41.0 and Chronic pain G89.29 [facility] [id number] [place] [address] 58060- 1134 Feb, [facility] [address] 99593- 6629 Feb, Panic attacks F41.0 ; Shortness of breath R06.02 and Encounter for immunization Z23 [facility] [id number] [place] [address] 57292- 6446 Jan, [facility] [address] 65148- 5063 15 Jan, 2017 Anxiety F41.9 and Chronic pain G89.29 [facility] [address] 40066- 9403 Dec, Anxiety F41.9 and Chronic pain G89.29 [facility] [id number] [place] [address] 97998- 2731 Nov, Chronic pain G89.29 [facility] [id number] [place] [address] 03822- 9926 Nov, Anxiety F41.9 [facility] [id number] [place] [address] 78172- 8271 Nov, Chronic pain G89.29 ; Essential hypertension I10 and Other emphysema J43.8 [facility] [id number] [place] [address] 27693- 7783 Oct, Anxiety F41.9 [facility] [id number] [place] [address] 58696- 2848 Oct, [facility] [address] 78317- 1476 Oct, Chronic pain G89.29 [facility] [id number] [place] [address] 38787- 2133 September, Recurrent UTI N39.0 ; Neuropathy G62.9 and Anxiety F41.9 [facility] [id number] [place] [address] 41467- 8676 September, [facility] [id number] [place] [address] 33180- 2363 September, Chronic pain G89.29 [facility] [id number] [place] [address] 16231- 0735 September, [facility] [id number] [place] [address] 63727- 5210 Aug, Post-traumatic stress disorder, chronic F43.12 ; Chronic urinary tract infection N39.0 ; Gastroesophageal reflux disease without esophagitis K21.9 ; Chronic pain G89.29 ; Essential hypertension I10 and Tobacco abuse Z72.0 [facility] [id number] [place] [address] 35222 -0026 Aug, [facility] [id number] [place] [address] 32262- 2765 Aug, Chronic pain G89.29 [facility] [id number] [address]- 4129 18 Aug, 2016 Insomnia, unspecified type G47.00 [facility] [id number] [place] [address] 32894- 4546 13 Aug, 2016 [facility] [address], [place] [address]- 0634 24 Jul, 2016 Chronic pain G89.29 [facility] [id number] [place] [address] 07677- 3250 Jul, [facility] [id number] [place] [address] 12803- 6586 Jul, [facility] [id number] [place] [address] 49705- 3396 20 Jul, 2016 [facility] [id number] [place] [address] 21264- 7374 15 Jul, 2016 Recurrent UTI (urinary tract infection) N39.0 [facility] [address] [address]- 0105 Jul, [facility] [id number] [place] [address] 95125- 5702 Jun, Chronic pain G89.29 [facility] [address], [place] [address]- 2130 17 Jun, 2016 [facility] [address], [place] [address]- 6469 Jun, [facility] [address], [place] [address]- 0759 May, Chronic pain G89.29 [facility] [address], [place] [address]- 3326 May, Weight loss R63.4 and Shortness of breath R06.02 [facility] [address], [place] [address]- 8746 May, Chronic pain G89.29 ; Weight loss R63.4 and Tobacco abuse Z72.0 [facility] [id number] [place] [address] 78490- 6045 May, [facility] [id number] [place] [address] 40507- 2409 May, Hypoxia R09.02 [facility] [id number] [place] [address] 27691- 3868 May, [facility] [id number] [place] [address] 01403- 0047 May, Pulmonary emphysema, unspecified emphysema type J43.9 [facility] [address] 90147 -6072 May, [facility] [id number] [place] [address] 94225- 7940 May, [facility] [id number] [place] [address] 63822- 8639 May, [facility] [id number] [place] [address] 83551- 3886 May, Chronic pain G89.29 ; Encounter for immunization Z23 ; Right anterior knee pain M25.561 and Cough R05 [facility] [id number] [place] [address] 13947- 6575 Apr, Chronic pain G89.29 [facility] [id number] [place] [address] 46178- 1452 Apr, [facility] [place] [id number] [place] [address] 08850- 2679 Apr, Generalized anxiety disorder F41.1 and Depression, unspecified depression type F32.9 [facility] [id number] [place] [address] 61718- 2691 Apr, Chronic pain G89.29 ; Hypokalemia E87.6 and Insomnia, unspecified type G47.00 [place] [address] [id number] [place] [address]- 2324 16 Apr, 2016 [facility] [address] [facility] [id number] [place] [address]- 5402 Apr, Chronic pain G89.29 [facility] [address] [facility] [id number] [place] 6227 Apr, [facility] [address] [facility] [id number] [place] [address]- 9370 Mar, [facility] [address] [facility] [id number] [place] [address]- 1327 Mar, Insomnia, unspecified type G47.00 [facility] [address] [facility] [id number] [place] [address]- 9155 Mar, Chronic pain G89.29 [facility] [address] [place] [address]- 1558 Mar, [facility] [id number] [place] [address]- 8209 Feb, [facility] [id number] [place] [address]- 6396 Feb, [facility] [id number] [place] [address]- 8067 Feb, [facility] [id number] [place] [address]- 8245 Feb, [facility] [place] [facility] [address] [facility] [id number] [place] [address]- 6216 Feb, [facility] [place] [facility] [address] [facility] [id number] [place] [address]- 9292 29 Jan, 2016 [facility] [place] [facility] [address] [facility] [id number] [place] [address]- 5171 Jan, [facility] [place] [facility] [id number] [place] [address]- 6847 20 Jan, 2016 [facility] [address], [place] [address]- 4391 13 Jan, 2016 [facility] [id number] [place] [address] 74693- 4765 12 Jan, 2016 [facility] [id number] [place] [address] 54314- 7756 07 Jan, 2016 Chronic pain G89.29 [facility] [id number] [place] [address] 07371 2542 Jan, Chronic pain G89.29 and Fibromyalgia M79.7 [facility] [id number] [place] [address] 87569- 5063 Dec, Depression, unspecified depression type F32.9 and Generalized anxiety disorder 300.02 [facility] [id number] [place] [address] 96742- 4833 Dec, Dysthymia F34.1 ; Insomnia, unspecified type G47.00 and Chronic pain G89.29 [facility] [address], [place] [address]- 6734 Dec, Chronic pain G89.29 [facility] [id number] [place] [address] 44660- 7937 Dec, Insomnia, unspecified type G47.00 [facility] [address], [place] [address]- 8376 Dec, Fibromyalgia M79.7 and Chronic pain G89.29 [facility] [address], [place] [address]- 5295 Dec, [facility] [id number] [place] [address] 81843- 4894 Dec, [facility] [id number] [place] [address] 11728- 7457 Dec, [facility] [address], [place] [address]- 4342 Dec, [facility] [id number] [place] [address] 72771- 8579 Dec, Chronic pain G89.29 [facility] [id number] [place] [address] 10518- 7593 Dec, [facility] [id number] [place] [address] 31474- 2605 Dec, [facility] [id number] [place] [address] 57327- 9737 Dec, [facility] [id number] [place] [address] 57525- 2964 Dec, Chronic pain G89.29 and Dysthymia F34.1 [facility] [id number] [place] [address] 23275- 2521 Nov, [facility] [id number] [place] [address] 44285- 7131 Nov, Hypokalemia E87.6 and Chronic pain G89.29 [facility] [id number] [place] [address] 83220- 0009 Nov, Back pain M54.9 and Pain in right knee M25.561 [facility] [id number] [place] [address] 85858- 1357 Nov, [facility] [id number] [place] [address] 00360- 6647 Nov, Chronic pain G89.29 [facility] [id number] [place] [address] 19113- 2540 Nov, Chronic pain G89.29 ; Weight loss R63.4 ; Bone pain M89.8X9 and Insomnia, unspecified type G47.00 [facility] [id number] [place] [address] 44956- 8282 Nov, Chronic pain G89.29 [facility] [id number] [place] [address] 70459- 7881 Nov, Chronic pain G89.29 [facility] [address] [facility] [id number] [address] 2546 30 Oct, 2015 Chronic pain G89.29 [facility] [id number] [place] [address] 23598 2546 Oct, UTI symptoms R39.9 [facility] [id number] [place] [address] 96287 2546 Oct, Chronic pain G89.29 [facility] [address] [facility] [id number] [place] [address] 58618 2546 Oct, Chronic pain G89.29 [facility] [id number] [place] [address] 08083 2546 Oct, Chronic pain G89.29 [facility] [id number] [place] [address] 70168- 8576 Oct, Right upper quadrant abdominal pain R10.11 [facility] [id number] [place] [address] 55176 2546 Oct, Chronic pain G89.29 [facility] [id number] [place] [address] 08842 2547 Oct, [facility] [id number] [place] [address] 15596 2547 September, Chronic pain G89.29 [facility] [id number] [place] [address] 84614 2541 September, Dysuria R30.0 and Urinary tract infection without hematuria , site unspecified N39.0 [facility] [id number] [place] [address] 71929- 5586 September, [facility] [id number] [place] [address] 54058- 6096 September, Dysuria R30.0 [facility] [id number] [place] [address] 96805- 5781 September, Chronic pain G89.29 [facility] [id number] [address] September, Chronic pain G89.29 and Essential hypertension I10 [facility] [id number] [place] [address] 14814- 2246 September, [facility] [id number] [place] [address] 91024- 9300 September, [facility] [id number] [place] [address] 50668- 2275 September, [facility] [id number] [place] [address] 76850- 5646 Aug, UTI symptoms R39.9 [facility] [id number] [place] [address] 86864- 1141 Aug, Dysuria R30.0 [facility] [id number] [place] [address] 66685- 6819 Aug, [facility] [id number] [place] [address] 84292- 2700 Aug, [facility] [id number] [place] [address] 60042- 7907 Aug, [facility] [id number] [place] [address] 12278- 6189 Aug, Chronic pain G89.29 [facility] [id number] [place] [address] 89716- 2868 Aug, Dysthymia F34.1 [facility] [id number] [place] [address] 00342- 1976 Aug, Conjunctivitis, unspecified conjunctivitis type, unspecified laterality H10.9 [facility] [id number] [address] Jul, Chronic pain G89.29 ; Back pain M54.9 ; Tobacco abuse Z72.0 and Weight decrease R63.4 [facility] [address] [facility] [id number] [place] [address] 3077 30 Jul, 2015 [facility] [address] [facility] [id number] [place] [address]- 9216 30 Jul, 2015 [facility] [address] [facility] [id number] [place] [address]- 2157 24 Jul, 2015 Chronic pain G89.29 [facility] [address] [facility] [id number] [place] [address]- 9323 22 Jul, 2015 [facility] [address] [facility] [id number] [place] [address]- 3363 21 Jul, 2015 [facility] [address] [facility] [id number] [place] [address]- 0317 18 Jul, 2015 [facility] [id number] [place] [address]149 17 Jul, 2015 [facility] [id number] [place] [address] 5142 17 Jul, 2015 Chronic pain G89.29 [facility] [address] [id number] [place] [address] 16 Jul, 2015 Chronic pain G89.29 [facility] [address] [id number] [place] [address] 15 Jul, 2015 [facility] [id number] [place] [address] 8058 10 Jul, 2015 [facility] [address] [facility] [id number] [place] [address] 6560 07 Jul, 2015 [facility] [address] [facility] [id number] [place] [address] 1903 Jul, [facility] [address] [facility] [id number] [place] [address] 7924 Jun, [facility] [address] [id number] [place] [address] 6[address] Jun, Depression, unspecified depression type F32.9 [id number] [place] [address] 33447- 4262 Jun, Pain in right knee M25.561 [id number] [place] [address] 48286- 2211 Jun, Chronic pain G89.29 ; Back pain M54.9 ; Bone pain M89.8X9 and Weight loss R63.4 [id number] [place] [address] 16836- 2100 Jun, [address] [address]- [address] May, [address] [place] [address] [address] May, UTI symptoms R39.9 ; Pain in right knee M25.561 ; Right low back pain, with sciatica presence unspecified M54.5 ; Right foot pain M79.671 ; Hypokalemia E87.6 and Screening, lipid Z13.220 [address] [id number] [place] [address] 93104- 2839 May, [address] [id number] [place] [address] 72565- 8769 May, [address] [id number] [place] [address] 49481- 1849 Mar, [address] [id number] [place] [address] 64363- 9570 Mar, [address] [id number] [place] [address] 70582- 1429 Mar, Hypokalemia E87.6 [address] [place] [id number] [place] [address] 65533- 9458 Mar, Pain in right leg M79.604 ; Encounter for immunization Z23 ; Pain in right knee M25.561 and Hypokalemia E87.6 [facility] [address]005[address] [address] 3285 Jan, [facility] [id number] [place] [address] 86015- 9246 Jan, [facility] [address] [address] 2546 Jan, Abdominal pain, generalized 789.07 [facility] [id number] [place] [address] 66912 2546 Jan, Abdominal pain, generalized 789.07 [facility] [id number] [place] [address] 56498- 6156 Dec, [facility] [id number] [place] [address] 59470- 2986 Dec, [facility] [id number] [place] [address] 05746- 8605 Dec, [facility] [address]005[address] [address]- 4645 Nov, Hallux valgus 735.0 and Hammertoe 735.4 [facility] [address]005[address] [address]- 5836 Nov, [facility] [address] [address]- 2822 Nov, Hallux valgus 735.0 and Hammer toe 735.4 [facility] [address]005[address] [address]- 5236 Oct, [facility] [address]005[address] [address]- 6486 Oct, [facility] [address] [address]- 5046 Oct, Pre-op evaluation V72.84 [facility] [address] [address] 2546 Oct, [facility] [address] [address]- 5232 Oct, [facility] [address] [id number] [address] 0691 September, [facility] [address] [id number] [address]- 3313 September, [facility] [id number] [place] [address] 32522- 1621 September, Hallux valgus (acquired) 735.0 and Other hammer toe ( acquired) 735.4 [facility] [id number] [place] [address] 22261- 0655 Aug, [facility] [id number] [place] [address] 52016- 3809 Aug, [facility] [id number] [place] [address] 12958- 3579 Jul, [facility] [address] [address]- 5910 Jul, [facility] [address]005[address] [address]- 8148 Jul, [facility] [address]005[address], [place] [address]- 5330 Jul, [facility] [address]005[address], [place] [address]- 7372 Jul, [facility] [address] [id number] [address]- 1198 Jul, [facility] [address] [id number] [address]- 9610 Jul, [facility] [address] [facility] [id number] [address]- 5375 Jul, [facility] [address], [place] [address]- 3729 Jun, 2014 [facility] [place] [facility] [address] [id number] [place] [address]- 3692 Jun, [facility] [place] [facility] [address] [id number] [place] [address]- 4546 Jun, 2014 [facility] [place] [facility] [address] [facility] [id number] [place] [address]- 6016 Jun, 2014 [facility] [place] [facility] [address] [id number] [place] [address]- 3249 Jun, 2014 [facility] [place] [facility] [address] [id number] [place] [address]- 9252 Jun, 2014 [facility] [place] [facility] [address] [facility] [id number] [place] [address]- 0996 Jun, [facility] [place] [facility] [address] [facility] [id number] [place] [address]- 3657 Jun, 2014 [facility] [place] [facility] [address] [facility] [id number] [place] [address]- 3115 Jun, [facility] [place] [facility] [address] [facility] [id number] [place] [address]- 0877 Jun, [facility] [place] [facility] [address] [facility] [id number] [place] [address]- 8295 May, [facility] [place] [facility] [address] [facility] [id number] [place] [address]- 9418 May, [facility] [place] [facility] [address] [facility] [id number], [place] [address]- 8788 May, [facility] [place] [facility] [address] [id number] [place] [address]- 8234 May, [facility] [place] [facility] [address] [facility] [id number] [place] [address]- 2132 May, [facility] [place] [facility] [address] [facility] [id number], [place] [address]- 8606 May, [facility] [place] [facility] [address] [id number] [place] [address]- 0560 May, [facility] [place] [facility] [address] [id number] [place] [address]- 8607 May, [facility] [place] [facility] [address] [id number] [place] [address]- 3348 May, [facility] [place] [facility] [address] [id number] [place] [address]- 9820 May, [facility] [place] [facility] [address] [id number] [place] [address]- 3648 May, [facility] [place] [facility] [address] [id number] [place] [address]- 0149 May, [facility] [place] [facility] [address] [id number] [place] [address]- 7017 May, [facility] [place] [facility] [address] [id number] [place] [address]- 6018 May, [facility] [place] [facility] [address] [id number] [place] [address]- 3217 May, [facility] [place] [facility] [address] [id number] [place] [address]- 1920 May, [facility] [place] [facility] [address] [id number] [place] [address]- 6112 May, [facility] [place] [facility] [address] [id number] [place] [address]- 5646 May, [facility] [place] [facility] [address] [id number] [place] [address]- 5325 Apr, [facility] [place] [facility] [address] [id number] [place] [address]- 0083 Apr, [facility] [place] [facility] [address] [id number] [place] [address]- 1452 Apr, [facility] [place] [facility] [address] [id number], [place] [address]- 3156 Apr, [facility] [place] [facility] [address] [id number] [place] 8041 Apr, [facility] [place] [facility] [address] [id number] [place] [address]- 3414 Apr, [facility] [place] [facility] [address] [id number] [place] [address]- 6028 Apr, [facility] [place] [facility] [address] [id number] [place] [address]- 9945 Apr, [facility] [place] [facility] [address] [id number] [place] 8999 Apr, [facility] [place] [facility] [address] [id number] [place] [address]- 6839 Mar, [facility] [place] [facility] [address] [id number] [place] [address]- 8516 Mar, [facility] [place] [facility] [address] [id number] [place] [address]- 4666 Mar, [facility] [place] [facility] [address] [id number] [place] [address]- 6856 Mar, [facility] [place] [facility] [address] [id number] [place] [address]- 0138 Mar, [facility] [place] [facility] [address] [id number], [place] [address]- 2517 Feb, [facility] [place] [facility] [address] [id number], [place] [address]- 4785 Feb, [facility] [place] [facility] [address] [id number] [place] [address]- 5517 Feb, [facility] [place] [facility] [address] [id number], [place] [address]- 7654 Feb, [facility] [place] [facility] [address] [id number], [place] [address]- 0604 Feb, [facility] [place] [facility] [address] [id number] [place] [address]- 7895 16 Feb, 2013 [facility] [place] [facility] [address] [id number] [place] [address]- 5698 Feb, 2013 [facility] [place] [facility] [address] [id number] [place] [address]- 6927 Feb, 2013 [facility] [place] [facility] [address] [id number] [place] [address]- 7048 Feb, 2013 [facility] [place] [facility] [address] [id number] [place] [address]- 9609 Feb, 2013 [facility] [place] [facility] [address] [id number] [place] [address]- 0270 Feb, 2013 [facility] [place] [facility] [address] [id number] [place] [address]- 4134 Feb, 2013 [facility] [place] [facility] [address] [id number] [place] [address]- 1425 Feb, 2013 [facility] [place] [facility] [address] [id number] [place] [address]- 5654 Feb, 2013 [facility] [place] [facility] [address] [id number] [place] [address]- 1949 Feb, 2013 [facility] [place] [facility] [address] [facility] [id number] [place] [address]- 3369 Feb, 2013 [facility] [place] [facility] [address] [id number] [place] [address]- 0596 23 Jan, 2013 [facility] [place] [facility] [address] [id number] [place] [address]- 0614 23 Sep, 2013 [facility] [place] [facility] [address] [id number] [place] [address]- 0141 20 Sep, 2013 [facility] [place] [facility] [address] [id number] [place] [address]- 5793 19 Sep, 2013 [facility] [place] [facility] [address] [id number] [place] [address]- 1718 Jan, [facility] [place] [facility] [address] [id number] [place] [address]- 6486 Jan, [facility] [place] [facility] [address] [id number] [place] [address]- 7453 Jan, [facility] [place] [facility] [address] [id number] [place] [address]- 0392 Jan, [facility] [place] [facility] [address] [id number] [place] [address]- 4729 Dec, [facility] [place] [facility] [address] [id number] [place] [address]- 6255 Dec, [facility] [place] [facility] [address] [id number] [place] [address]- 1827 Nov, [facility] [place] [facility] [address] [id number] [place] [address]- 2877 Nov, [facility] [place] [facility] [address] [id number] [place] [address]- 5299 Nov, [facility] [place] [facility] [address] [id number] [place] [address]- 0719 Nov, [facility] [place] [facility] [address] [id number] [place] [address]- 7018 Nov, [facility] [place] [facility] [address] [id number] [place] [address]- 9174 Nov, [facility] [place] [facility] [address] [id number] [place] [address]- 8107 Nov, [facility] [place] [facility] [address] [id number] [place] [address]- 0669 Nov, [facility] [place] [facility] [address] [id number] [place] [address]- 9319 Nov, [facility] [place] [facility] [address] [id number] [place] [address]- 0008 Oct, [facility] [place] [facility] [address] [id number] [place] [address]- 8563 Oct, [facility] [place] [facility] [address] [id number] [place] [address]- 2808 Oct, [facility] [place] [facility] [address] [id number] [place] [address]- 0799 Oct, [facility] [place] [facility] [address] [id number] [place] [address]- 8584 Oct, [facility] [place] [facility] [address] [id number] [place] [address]- 8177 Oct, [facility] [place] [facility] [address] [id number] [place] [address]- 8455 September, [facility] [place] [facility] [address] [id number] [place] [address]- 1616 September, [facility] [place] [facility] [address] [id number] [place] [address]- 2702 September, [facility] [place] [facility] [address] [id number] [place] [address]- 5483 September, [facility] [place] [facility] [address] [id number] [place] [address]- 7587 September, [facility] [place] [facility] [address] [id number] [place] [address]- 0340 September, [facility] [place] [facility] [address] [id number] [place] [address]- 5779 September, [facility] [place] [facility] [address] [id number] [place] [address]- 1116 September, [facility] [place] [facility] [address] [id number] [place] [address]- 9391 September, [facility] [place] [facility] [address] [id number] [place] [address]- 4137 September, [facility] [place] [facility] [address] [id number] [place] [address]- 8965 September, [facility] [place] [facility] [address] [id number] [place] [address]- 3638 September, [facility] [place] [facility] [address] [id number] [place] 8623 September, [facility] [place] [facility] [address] [id number] [place] [address]- 2576 September, [facility] [place] [facility] [address] [id number] [place] [address]- 7172 September, [facility] [place] [facility] [address] [id number] [place] [address]- 3151 September, [facility] [place] [facility] [address] [id number] [place] [address]- 4115 September, [facility] [place] [facility] [address] [id number] [place] [address]- 4972 September, [facility] [place] [facility] [address] [id number] [place] [address]- 3879 September, [facility] [place] [facility] [address] [id number] [place] [address]- 8726 September, [facility] [place] [facility] [address] [id number] [place] [address]- 6881 Aug, [facility] [place] [facility] [address] [id number] [place] [address]- 4731 Aug, [facility] [place] [facility] [address] [id number] [place] [address]- 5794 Aug, [facility] [place] [facility] [address] [id number] [place] [address]- 5858 Aug, [facility] [place] [facility] [address] [id number] [place] [address]- 3403 Aug, [facility] [place] [facility] [address] [id number] [place] [address]- 5097 Aug, [facility] [place] [facility] [address] [id number] [place] [address]- 3503 16 Aug, 2013 [facility] [place] [facility] [address] [id number] [place] [address]- 6808 16 Aug, 2013 [facility] [place] [facility] [address] [id number] [place] [address]- 5237 15 Aug, 2013 [facility] [place] [facility] [address] [id number] [place] [address]- 3106 15 Aug, 2013 [facility] [place] [facility] [address] [id number] [place] [address]- 6949 14 Aug, 2013 [facility] [place] [facility] [address] [id number] [place] [address]- 9196 Aug, [facility] [place] [facility] [address] [id number] [place] [address]- 6456 Aug, [facility] [place] [facility] [address] [id number] [place] [address]- 7950 Aug, [facility] [place] [facility] [address] [id number] [place] [address]- 4160 Aug, [facility] [place] [facility] [address] [id number] [place] [address]- 8128 31 Jul, 2013 [facility] [place] [facility] [address] [id number] [place] [address]- 7688 31 Jul, 2013 [facility] [place] [facility] [address] [id number] [place] [address]- 5913 27 Jul, 2013 [facility] [place] [facility] [address] [id number] [place] [address]- 9993 27 Jul, 2013 [facility] [place] [facility] [address] [id number] [place] [address]- 3782 20 Jul, 2013 [facility] [place] [facility] [address] [id number] [place] [address]- 3616 20 Jul, 2013 [facility] [place] [facility] [address] [id number] [place] [address]- 1429 18 Jul, 2013 [facility] [place] [facility] [address] [id number] [place] [address]- 9090 18 Jul, 2013 [facility] [place] [facility] [address] [id number] [place] [address]- 6126 Jul, [facility] [place] [facility] [address] [id number] [place] [address]- 6266 Jul, [facility] [place] [facility] [address] [id number] [place] [address]- 4886 Jul, [facility] [place] [facility] [address] [id number] [place] [address]- 4405 Jul, [facility] [place] [facility] [address] [id number] [place] [address]- 3831 Jul, [facility] [place] [facility] [address] [id number] [place] [address]- 6304 Jul, [facility] [place] [facility] [address] [id number] [place] [address]- 0802 Jul, [facility] [place] [facility] [address] [id number] [place] [address]- 6808 Jun, [facility] [place] [facility] [address] [id number] [place] [address]- 1733 Jun, [facility] [place] [facility] [address] [id number] [place] [address]- 6502 Jun, [facility] [place] [facility] [address] [id number] [place] [address]- 4813 Jun, [facility] [place] [facility] [address] [id number] [place] [address] Jun, [facility] [place] [facility] [address] [id number] [place] [address] Jun, [facility] [place] [facility] [address] [id number] [place] [address] May, [facility] [place] [facility] [address] [id number] [place] [address] May, [facility] [place] [facility] [address] [id number] [place] [address] May, [facility] [place] [facility] [address] [id number] [place] [address] May, [facility] [place] [facility] [address] [id number] [place] [address] May, [facility] [place] [facility] [address] [id number] [place] [address] May, [facility] [place] [facility] [address] [id number] [place] [address] May, [facility] [place] [facility] [address] [id number] [place] [address] May, [facility] [place] [facility] [address] [id number] [place] [address] May, [facility] [place] [facility] [address] [id number] [place] [address] May, [facility] [place] [facility] [address] [id number] [place] [address] May, [facility] [place] [facility] [address] [id number] [place] [address] May, [facility] [place] [facility] [address] [id number] [place] [address]63 May, [facility] [place] [facility] [address] [id number] [place] [address]66 May, [facility] [place] [facility] [address] [id number] [place] [address]69 May, [facility] [place] [facility] [address] [id number] [place] [address] Apr, [facility] [place] [facility] [address] [id number] [place] [address] Apr, [facility] [place] [facility] [address] [id number] [place] [address] Apr, [facility] [address] [id number] [place] [address] Apr, [facility] [address] [id number] [place] [address] Apr, [facility] [address] [id number] [place] [address] Apr, [facility] [place] [facility] [address] [id number] [place] [address] Apr, [facility] [address] [id number] [place] [address] 140[address] Apr, [facility] [address] [id number] [place] [address] Apr, [facility] [address] [id number] [place] [address]118 Apr, [facility] [address] [id number] [place] [address] Mar, [facility] [address] [id number] [place] [address] Mar, [facility] [address] [id number] [place] [address] Mar, [facility] [address] [id number] [place] [address] Mar, [facility] [place] [facility] [address] [id number], [place] [address] Mar, [facility] [place] [facility] [address] [id number], [place] [address] Mar, [facility] [place] [facility] [address] [id number], [place] [address] Mar, [facility] [place] [facility] [address] [id number], [place] [address] Mar, [facility] [place] [facility] [address] [id number] [place] [address] Mar, [facility] [place] [facility] [address] [id number] [place] [address] Mar, [facility] [place] [facility] [address] [id number] [place] [address] 80[address] Mar, [facility] [place] [facility] [address] [id number] [place] [address] Mar, [facility] [place] [facility] [address] [id number] [place] [address] Mar, [facility] [place] [facility] [address] [id number] [place] [address] Mar, [facility] [place] [facility] [address] [id number] [place] [address] Mar, [facility] [place] [facility] [address] [id number] [place] [address] Mar, [facility] [place] [facility] [address] [id number] [place] [address]95 Mar, [facility] [place] [facility] [address] [id number] [place] [address] 14 Mar, 2013 [facility] [place] [facility] [address] [id number] [place] [address] Mar, [facility] [place] [facility] [address] [id number] [place] [address] Mar, [facility] [place] [facility] [address] [id number] [place] [address] Mar, [facility] [place] [facility] [address] [id number] [place] [address] Mar, [facility] [place] [facility] [address] [id number] [place] [address] Mar, [facility] [place] [facility] [address] [id number] [place] [address] 18 Feb, 2013 [facility] [place] [facility] [address] [id number] [place] [address] 18 Feb, 2013 [facility] [place] [facility] [address] [id number] [place] [address]143 16 Feb, 2013 [facility] [place] [facility] [address] [id number] [place] [address] 36[address] 16 Feb, 2013 [facility] [place] [facility] [address] [id number] [place] [address]- [address] 15 Feb, 2012 [facility] [place] [facility] [address] [id number] [place] [address] 09 Feb, 2013 [facility] [place] [facility] [address] [id number] [place] [address]79 09 Feb, 2013 [facility] [place] [facility] [address] [id number] [place] [address] 07 Feb, 2013 [facility] [place] [facility] [address] [id number], [place] [address] 04 Feb, 2013 [facility] [place] [facility] [address] [id number] [place] [address] 03 Feb, 2013 [facility] [place] [facility] [address] [id number], [place] [address] 30 Jan, 2013 [facility] [place] [facility] [address] [id number], [place] [address] 26 Jan, 2012 [facility] [place] [facility] [address] [id number], [place] [address] 24 Jan, 2012 [facility] [place] [facility] [address] [id number] [place] [address]- 67[address] 23 Jan, 2013 [facility] [place] [facility] [address] [id number], [place] [address] 17 Jan, 2012 [facility] [place] [facility] [address] [id number] [place] [address] 28 Dec, 2012 [facility] [place] [facility] [address] [id number] [place] [address] Dec, [facility] [place] [facility] [address] [id number] [place] [address] 90[address] Dec, [facility] [place] [facility] [address] [id number] [place] [address] Dec, [facility] [place] [facility] [address] [id number] [place] [address]47 Dec, [facility] [place] [facility] [address] [id number] [place] [address] 39[address] Dec, [facility] [place] [facility] [address] [id number] [place] [address] Dec, [facility] [place] [facility] [address] [id number] [place] [address] 8246 Nov, [facility] [place] [facility] [address] [id number] [place] [address] 0071 Nov, [facility] [place] [facility] [address] [id number] [place] [address] 6136 Nov, [facility] [place] [facility] [address] [id number] [place] [address] Nov, [facility] [place] [facility] [address] [id number] [place] [address] 9541 Nov, [facility] [place] [facility] [address] [id number] [place] [address] 3586 Oct, [facility] [place] [facility] [address] [id number] [place] [address] 9654 Oct, [facility] [place] [facility] [address] [id number] [place] [address] 1427 Oct, [facility] [place] [facility] [address] [id number] [place] [address] 4864 September, [facility] [place] [facility] [address] [id number] [place] [address]- 6363 September, [facility] [address] [id number] [place] [address] 6076 September, [facility] [address] [id number] [place] [address] 3971 September, [facility] [address] [id number] [place] [address] 4601 September, [facility] [address] [id number] [place] [address] 9051 September, [facility] [address] [id number] [place] [address] 0169 September, [facility] [address] [id number] [place] [address] 4237 Aug, [facility] [address] [id number] [place] [address] 8068 Aug, [facility] [address] [id number] [place] [address]- 7686 Aug, [facility] [address] [id number] [place] [address]- 7577 29 Jul, 2012 [facility] [address] [id number] [place] [address] 3740 27 Jul, 2012 [facility] [address] [id number] [place] [address] 3317 Jul, [facility] [address] [id number] [place] [address] 2349 Jul, [facility] [address] [id number] [place] [address]- 7668 18 Jul, 2012 [facility] [address] [id number] [place] [address]- 7266 18 Jul, 2012 [facility] [address] [id number] [place] [address]- 3672 13 Jul, 2012 [facility] [address] [id number] [place] [address] 2192 Jun, [facility] [address] [id number] [place] [address] 2546 Jun, [facility] [place] [facility] [address] [id number] [place] [address] 2546 Jun, [facility] [address] [id number] [place] [address] 1996 Jun, [facility] [place] [facility] [address] [id number] [place] [address] 2546 15 Jun, 2012 [facility] [address] [id number] [place] [address]- 1196 Jun, [facility] [place] [facility] [address] [id number] [place] [address] 2546 13 Jun, 2012 [facility] [address] [id number] [place] [address] 3276 Jun, [facility] [address] [id number] [place] [address]- 0618 Jun, [facility] [address] [id number] [place] [address] 9821 Jun, [facility] [address] [id number] [place] [address] 1840 May, [facility] [place] [facility] [address] [id number] [place] [address] 2546 May, [facility] [place] [facility] [address] [id number] [place] [address] 2546 May, [facility] [place] [facility] [address] [id number] [place] [address] 8016 May, [facility] [place] [facility] [address] [id number] [place] [address]- 2546 May, [facility] [place] [facility] [address] [id number] [place] [address]- 0658 May, [facility] [place] [facility] [address] [id number] [place] [address]- 1059 Apr, [facility] [place] [facility] [address] [id number] [place] [address]- 3886 Apr, [facility] [place] [facility] [address] [id number] [place] [address]- 3876 Apr, [facility] [place] [facility] [address] [id number] [place] [address]- 7666 Apr, [facility] [place] [facility] [address] [id number] [place] [address]- 6193 Apr, [facility] [place] [facility] [address] [id number] [place] [address]- 9598 Apr, [facility] [place] [facility] [address] [id number] [place] [address]- 5388 Apr, [facility] [place] [facility] [address] [id number] [place] [address] 4609 Mar, [facility] [place] [facility] [address] [id number] [place] [address] 3884 29 Mar, 2012 [facility] [place] [facility] [address] [id number] [place] [address] 3461 Mar, [facility] [place] [facility] [address] [id number] [place] [address]- 0754 Mar, [facility] [place] [facility] [address] [id number], [place] [address] 7200 Mar, [facility] [place] [facility] [address] [id number] [place] [address]- 8391 18 Mar, 2012 [facility] [place] [facility] [address] [id number] [place] [address]- 0616 18 Mar, 2012 [facility] [place] [facility] [address] [facility] [id number], [place] [address]- 2242 16 Mar, 2012 [facility] [place] [facility] [address] [id number], [place] [address] 3433 Mar, [facility] [place] [facility] [address] [id number] [place] [address]- 4196 Mar, [facility] [place] [facility] [address] [id number] [place] [address] Mar, [facility] [place] [facility] [address] [facility] [id number] [place] [address]- 3984 Mar, [facility] [place] [facility] [address] [id number] [place] [address]- 6438 Mar, [facility] [place] [facility] [address] [id number] [place] [address]- 5665 Mar, [facility] [place] [facility] [address] [facility] [id number] [place] [address]- 1812 Mar, [facility] [place] [facility] [address] [facility] [id number] [place] [address]- 8762 Mar, [facility] [place] [facility] [address] [facility] [id number] [place] [address]- 6239 Mar, [facility] [place] [facility] [address] [facility] [id number], [place] [address]- 3914 Feb, [facility] [place] [facility] [address] [facility] [id number], [place] [address]- 7277 Feb, [facility] [place] [facility] [address] [facility] [id number], [place] [address]- 3484 Feb, [facility] [place] [facility] [address] [facility] [id number], [place] [address]- 2616 Feb, [facility] [place] [facility] [address] [facility] [id number], [place] [address]- 6298 Feb, [facility] [place] [facility] [address] [facility] [id number], [place] [address]- 9574 Feb, [facility] [place] [facility] [address] [facility] [id number], [place] [address]- 7155 Feb, [facility] [place] [facility] [address] [id number] [place] [address]- 3017 11 Feb, 2012 [facility] [place] [facility] [address] [id number] [place] [address]- 5026 05 Feb, 2012 [facility] [place] [facility] [address] [id number] [place] [address]- 8756 04 Feb, 2012 [facility] [place] [facility] [address] [id number] [place] [address]- 1431 02 Feb, 2012 [facility] [place] [facility] [address] [id number] [place] [address]- 8055 27 Jan, 2012 [facility] [place] [facility] [address] [id number] [place] [address]- 4616 25 Jan, 2012 [facility] [place] [facility] [address] [id number] [place] [address]- 1584 13 Jan, 2012 [facility] [place] [facility] [address] [id number] [place] [address]- 3011 12 Jan, 2012 [facility] [place] [facility] [address] [id number] [place] [address]- 6276 07 Jan, 2012 [facility] [place] [facility] [address] [id number] [place] [address]- 8786 31 Dec, 2011 [facility] [place] [facility] [address] [id number] [place] [address]- 6174 24 Dec, 2011 [facility] [place] [facility] [address] [id number] [place] [address]- 3994 22 Dec, 2011 [facility] [place] [facility] [address] [id number] [place] [address]- 0847 18 Dec, 2011 [facility] [place] [facility] [address] [id number] [place] [address]- 2689 16 Dec, 2011 [facility] [place] [facility] [address] [id number] [place] [address]- 6207 10 Dec, 2011 [facility] [place] [facility] [address] [id number] [place] [address]- 7474 Dec, [facility] [place] [facility] [address] [id number] [place] [address]- 3414 Dec, [facility] [place] [facility] [address] [id number] [place] [address]- 5770 Nov, [facility] [place] [facility] [address] [id number] [place] [address]- 2855 Nov, [facility] [place] [facility] [address] [id number] [place] [address]- 8553 Nov, [facility] [place] [facility] [address] [id number] [place] [address]- 6499 Nov, [facility] [place] [facility] [address] [id number] [place] [address]- 3160 Nov, [facility] [place] [facility] [address] [id number] [place] [address]- 1754 Oct, [facility] [place] [facility] [address] [id number] [place] [address]- 4398 Oct, [facility] [place] [facility] [address] [id number] [place] [address]- 2401 September, [facility] [place] [facility] [address] [id number] [place] [address]- 0130 September, [facility] [place] [facility] [address] [id number] [place] [address]- 3714 September, [facility] [place] [facility] [address] [id number] [place] [address]- 2053 September, [facility] [place] [facility] [address] [id number] [place] [address]- 2258 September, [facility] [place] [facility] [address] [id number] [place] [address]- 0978 September, [facility] [place] [facility] [address] [id number] [place] [address]- 2574 September, [facility] [place] [facility] [address] [id number] [place] [address]- 1477 September, [facility] [address] [id number] [place] [address]- 3264 September, [facility] [address] [id number] [place] [address]- 3906 September, [facility] [address] [id number] [place] [address]- 3855 September, [facility] [address] [id number] [place] [address]- 9051 September, [facility] [address] [id number] [place] [address]- 8824 September, [facility] [address] [id number] [place] [address]- 6097 September, [facility] [address] [id number] [place] [address]- 3608 24 Aug, 2011 [facility] [address] [id number] [place] [address]- 4698 Aug, [facility] [address] [id number] [place] [address]- 7049 Aug, [facility] [address] [facility] [id number] [place] [address]- 4304 Aug, [facility] [address] [facility] [id number] [place] [address]- 6840 23 Jul, 2011 [facility] [address] [facility] [id number], [place] [address]- 7002 13 Jul, 2011 [facility] [place] [facility] [address] [facility] [id number] [place] [address]- 8024 Jul, [facility] [place] [facility] [address] [facility] [id number] [place] [address]- 6249 28 Jun, 2011 [facility] [address] [facility] [id number] [id number] Jun, [facility] [address] [id number] [place] [address]- 2706 13 Jun, 2011 [facility] [place] [facility] [address] [id number] [place] [address]- 7846 10 Jun, 2011 [facility] [place] [facility] [address] [id number] [place] [address] 2546 07 Jun, 2011 [facility] [place] [facility] [address] [id number] [place] [address]- 4196 07 Jun, 2011 [facility] [place] [facility] [address] [id number] [place] [address]- 6198 03 Jun, 2011 [facility] [place] [facility] [address] [id number] [place] [address]- 5847 Jun, [facility] [place] [facility] [address] [id number] [place] [address]- 8201 May, [facility] [place] [facility] [address] [id number] [place] [address]- 1822 May, [facility] [place] [facility] [address] [id number] [place] [address]- 6232 May, [facility] [place] [facility] [address] [id number] [place] [address]- 6663 May, [facility] [place] [facility] [address] [id number] [place] [address]- 1506 May, [facility] [place] [facility] [address] [id number] [place] [address]- 6850 May, [facility] [place] [facility] [address] [id number] [place] [address]- 2115 May, [facility] [place] [facility] [address] [id number] [place] [address]- 4499 May, [facility] [place] [facility] [address] [id number] [place] [address]- 7661 May, [facility] [place] [facility] [address] [id number], [place] [address]- 9172 May, [facility] [place] [facility] [address] [id number] [place] [address]- 2185 17 May, 2011 [facility] [place] [facility] [address] [id number] [place] [address]- 8976 May, [facility] [place] [facility] [address] [id number] [place] [address]- 3336 May, [facility] [place] [facility] [address] [id number] [place] [address]- 8289 May, [facility] [place] [facility] [address] [id number] [place] [address]- 6266 30 Apr, 2011 [facility] [place] [facility] [address] [id number] [place] [address]- 3369 16 Apr, 2011 [facility] [place] [facility] [address] [id number] [place] [address]- 0566 05 Apr, 2011 [facility] [place] [facility] [address] [id number] [place] [address]- 9496 Mar, [facility] [place] [facility] [address] [id number] [place] [address]- 3438 Mar, [facility] [place] [facility] [address] [id number] [place] [address]- 7967 31 Feb, 2011 [facility] [place] [facility] [address] [id number], [place] [address]- 3231 26 Feb, 2011 [facility] [place] [facility] [address] [id number] [place] [address]- 2625 21 Feb, 2011 [facility] [place] [facility] [address] [id number] [place] [address]- 9631 20 Feb, 2011 [facility] [place] [facility] [address] [id number] [place] [address]- 4828 13 Feb, 2011 [facility] [place] [facility] [address] [id number] [place] [address]- 6485 28 Apr, 2010 [facility] [place] [facility] [address] [id number] [place] [address]- 4464 22 Apr, 2010 [facility] [place] [facility] [address] [id number] [place] [address]- 0506 16 Apr, 2010 [facility] [place] [facility] [address] [id number] [place] [address] 2546 15 Apr, 2010 [facility] [place] [facility] [address] [id number] [place] [address]- 3166 15 Apr, 2010 [facility] [place] [facility] [address] [id number] [place] [address] 254 Apr, [facility] [place] [facility] [address] [id number] [place] [address]- 2543 24 Mar, 2010 [facility] [place] [facility] [address] [id number] [place] [address]- 4135 17 Mar, 2010 [facility] [place] [facility] [address] [id number] [place] [address]- 1343 Mar, [facility] [place] [facility] [address] [id number] [place] [address]- 7114 Feb, [facility] [place] [facility] [address] [id number] [place] [address]- 8767 Feb, [facility] [place] [facility] [address] [id number] [place] [address]- 8588 Feb, [facility] [place] [facility] [address] [id number] [place] [address]- 0426 15 Feb, 2010 [facility] [place] [facility] [address] [id number] [place] [address] 2544 Dec, [facility] [place] [facility] [address] [id number] [place] [address]- 2586 Dec, [facility] [place] [facility] [address] [id number] [place] [address] 2546 Oct, [facility] [place] [facility] [address] [id number] [place] [address]- 2545 Mar, [facility] [address] [facility] [id number] [place] [address]- 2546 Mar, [facility] [address] [facility] [id number] [place] [address]- 2546 September, IMMUNIZATIONS No Known Immunizations SOCIAL HISTORY Never Assessed REASON FOR VISIT Controlled Med Refill 05/22/17 PLAN OF CARE VITAL SIGNS MEDICATIONS Medication [...]
--- OUTSIDE RECORDS SUMMARY | 2017-11-27 15:29 | XMS REPORT ---
Author Author VALERIE ZAVALA [facility] Address [address] [place] [address] Care Team Providers Care Telecommunications Switch Technician Name Role Phone VALERIE ZAVALA Unavailable PROBLEMS Type Condition ICD9-CM Code EPI82-VZ Code Onset Dates Condition Status SNOMED Code Problem Generalized anxiety disorder F41.1 Active 13361750 Problem Hypokalemia E87.6 Active 616242215 Problem Right low back pain, with sciatica presence unspecified M54.5 Active 782560597 Problem Post-traumatic stress disorder, chronic F43.12 Active 63754678 Problem Pain in right knee M25.561 Active 47177412 Problem Gastroesophageal reflux disease without esophagitis K21.9 Active 609491001 Problem UTI symptoms R39.9 Active 83555384 Problem Essential hypertension I10 Active 45520538 Problem Anxiety F41.9 Active 76883480 Problem Neuropathy G62.9 Active 741395428 Problem Other chronic pain G89.29 Active 38770083 Problem Generalized abdominal pain R10.84 Active 693277038 Problem Chronic pain G89.29 Active 73251117 Problem Back pain M54.9 Active 186504659 Problem Right foot pain M79.671 Active 24429908 Problem Panic attacks F41.0 Active 862303181 Problem Other emphysema J43.8 Active 82040004 Problem Kidney stones N20.0 Active 44785983 Problem Renal calculus, right N20.0 Active 97745979 Problem Weight decrease R63.4 Active 525911923 Problem Tobacco abuse Z72.0 Active 73949863 Problem Bone pain M89.8X9 Active 03036545 Problem Depression, unspecified depression type F32.9 Active 67004666 Problem Insomnia, unspecified type G47.00 Active 782962685 Problem Pulmonary emphysema, unspecified emphysema type J43.9 Active 97930300 Problem Right upper quadrant abdominal pain R10.11 Active 581390809 Problem Weight loss R63.4 Active 932406751 ALLERGIES No Information ENCOUNTERS Encounter Location Date Diagnosis [facility] [address] [place] [address] Nov, [facility] [id number] [place] [address] 60050- 9499 Oct, Medicare welcome exam Z00.00 [facility] [id number] [place] [address] 76069- 4239 18 Oct, 2017 Gross hematuria R31.0 ; Urinary tract infection without hematuria, site unspecified N39.0 and Weakness R53.1 [facility] [id number] [place] [address] 68708- 0855 Oct, [facility] [address] [place] [address] 17495- 5895 Oct, [facility] [id number] [place] [address] 45289- 0656 Oct, Medicare welcome exam Z00.00 [facility] [address] [place] [address] 10677- 2060 September, Back pain M54.9 and Right anterior knee pain M25.561 [facility] [address] [place] [address] 54391- 8271 September, [facility] [address] [place] [address] 80781- 7511 September, [facility] [address] [place] [address] 11643- 6396 September, Essential hypertension I10 [facility] [address] [place] [address] 46139- 1527 September, [facility] [address] [place] [address] 66982- 9852 September, RLQ abdominal pain R10.31 ; Low back pain M54.5 and Other chronic pain G89.29 [facility] [address] [place] [address] 47737- 7773 Aug, Medicare welcome exam Z00.00 [facility] [address] [place] [address] 77829- 7840 Aug, [facility] [address] [place] [address] 01609 2546 Aug, Acute pyelonephritis N10 and Medicare welcome exam Z00.00 [facility] [id number] [place] [address] 76097 -9516 Aug, Dysuria R30.0 and Acute pyelonephritis N10 [facility] [address] [place] [address] 43113- 7283 Aug, [facility] [address] [place] [address] 94993- 3141 Aug, [facility] [address] [place] [address] 81265- 8096 Aug, [facility] [address] [place] [address] 35991- 2834 Aug, [facility] [address] [place] [address] 09856- 4162 Jul, [facility] [address] [place] [address] 15882- 9927 Jul, Renal calculus, right N20.0 and Medicare welcome exam Z00.00 [facility] [address] [place] [address] 33428 -7859 Jul, Dysuria R30.0 and Renal calculus, right N20.0 [facility] [address] [place] [address] 04664- 7738 Jul, Medicare welcome exam Z00.00 [facility] [address] [place] [address] 07966- 6273 13 Jun, 2017 Gastroesophageal reflux disease without esophagitis K21.9 and Generalized abdominal pain R10.84 [facility] [address] [address] 1655 09 Jun, 2017 Medicare welcome exam Z00.00 [facility] [address] [place] [address] 53315- 4997 05 Jun, 2017 [facility] [address] [place] [address] 26822- 3020 05 Jun, 2017 Medicare welcome exam Z00.00 and Encounter for screening mammogram for malignant neoplasm of breast Z12.31 [facility] [address] [place] [address] 80217- 7457 02 Jun, 2017 Chronic pain G89.29 [facility] [address] [place] [address] 64547- 7731 May, [facility] [address] [place] [address] 09025- 0713 May, Pelvic pain R10.2 [facility] [address] [place] [address] 37244- 5114 May, Pelvic pain R10.2 [facility] [address] [place] [address] 94184 -6903 May, Renal calculus, right N20.0 [facility] [address] [place] [address] 07162- 6814 May, Hematuria, unspecified type R31.9 and Nephrolithiasis N20.0 [facility] [address] [place] [address] 48705 -9090 May, Dysuria R30.0 and Nephrolithiasis N20.0 [facility] [address] [place] [address] 66084- 0750 May, [facility] [address] [place] [address] 44993 -9204 May, Abdominal pain R10.9 and Kidney stone N20.0 [facility] [address] [address] 3685 May, [facility] [address] [place] [address] 65392- 3280 May, Chronic pain G89.29 and Panic attacks F41.0 [facility] [address] [address]- 2917 May, Urinary tract infection without hematuria, site unspecified N39.0 [facility] [address] [address]- 5350 Apr, Right lower quadrant abdominal pain R10.31 and Abnormal serum lipase level R74.8 [facility] [address] [address]- 8131 Apr, Recurrent urinary tract infection N39.0 [facility] [address] [address]- 2242 Apr, UTI symptoms R39.9 ; Recurrent urinary tract infection N39.0 and Pelvic pain R10.2 [facility] [address] [address]- 0885 Apr, Chronic pain G89.29 and Panic attacks F41.0 [facility] [address] [place] [address]- 7583 Apr, Dysuria R30.0 [facility] [address] [place] [address]- 2738 Apr, [facility] [id number] [address]- 1554 Apr, Dysuria R30.0 and Urinary tract infection without hematuria , site unspecified N39.0 [facility] [address] [address]- 8581 Mar, UTI symptoms R39.9 [facility] [id number] [address]- 4967 Mar, [facility] [address] [place] [address] 83121- 0640 Mar, Panic attacks F41.0 and Chronic pain G89.29 [facility] [address] 99013- 3913 Mar, [facility] [address] 28208- 0071 Mar, Dysuria R30.0 [facility] [address] 26647- 7974 Mar, Dysuria R30.0 [facility] [address] 68405- 7845 Feb, Chronic pain G89.29 ; Shortness of breath R06.02 ; Weight loss R63.4 ; Encounter for immunization Z23 ; Bone pain M89.8X9 ; Right anterior knee pain M25.561 and Cough R05 [facility] [address] 79650- 1470 Feb, Shortness of breath R06.02 [facility] [address] [place] [address] 41167- 0971 Feb, [facility] [address] [place] [address] 52861- 2505 Feb, Panic attacks F41.0 and Chronic pain G89.29 [facility] [address] [place] [address] 04468- 8599 Feb, [facility] [address] [place] [address] 28526- 3983 Feb, Panic attacks F41.0 ; Shortness of breath R06.02 and Encounter for immunization Z23 [facility] [address] [place] [address] 27460- 1105 Jan, [facility] [address] [place] [address] 79063- 0429 15 Jan, 2017 Anxiety F41.9 and Chronic pain G89.29 [facility] [address] [place] [address] 56033- 1056 Dec, Anxiety F41.9 and Chronic pain G89.29 [facility] [address] [place] [address] 13575- 0772 Nov, Chronic pain G89.29 [facility] [address] [place] [address] 18373- 2111 Nov, Anxiety F41.9 [facility] [address] 98068- 5652 Nov, Chronic pain G89.29 ; Essential hypertension I10 and Other emphysema J43.8 [facility] [address] [place] [address] 18883- 6686 Oct, Anxiety F41.9 [facility] [address] [place] [address] 17689- 9543 Oct, [facility] [address] [place] [address] 25410- 8153 Oct, Chronic pain G89.29 [facility] [address] [place] [address] 30102- 4300 September, Recurrent UTI N39.0 ; Neuropathy G62.9 and Anxiety F41.9 [facility] [address] [place] [address] 65242- 5822 September, [facility] [address] [place] [address] 00360- 9627 September, Chronic pain G89.29 [facility] [address] [place] [address] 77737- 0895 September, [facility] [address] [place] [address] 62902- 1801 Aug, Post-traumatic stress disorder, chronic F43.12 ; Chronic urinary tract infection N39.0 ; Gastroesophageal reflux disease without esophagitis K21.9 ; Chronic pain G89.29 ; Essential hypertension I10 and Tobacco abuse Z72.0 [facility] [address] [place] [address] Aug, [facility] [address] [place] [address] 72197- 5979 Aug, Chronic pain G89.29 [facility] [address] [place] [address] 29778- 8932 Aug, Insomnia, unspecified type G47.00 [facility] [address] [place] [address] 12249- 6724 Aug, [facility] [address] [place] [address] 38133- 6208 24 Jul, 2016 Chronic pain G89.29 [facility] [address] [place] [address] 40317- 3453 Jul, [facility] [address] [place] [address] 38306- 1978 Jul, [facility] [address] [place] [address] 67967- 8098 Jul, [facility] [address] [place] [address] 96774- 9179 15 Jul, 2016 Recurrent UTI (urinary tract infection) N39.0 [facility] [address] [address]- 4367 14 Jul, 2016 [facility] [address] [place] [address] 27478- 2540 Jun, Chronic pain G89.29 [facility] [address] [address]- 5746 17 Jun, 2016 [facility] [address] [address]- 2744 Jun, [facility] [address] [place] [address] 33037- 4713 May, Chronic pain G89.29 [facility] [address] [place] [address] 78150- 8208 May, Weight loss R63.4 and Shortness of breath R06.02 [facility] [address] [place] [address] 04810- 3532 May, Chronic pain G89.29 ; Weight loss R63.4 and Tobacco abuse Z72.0 [facility] [address] 58650- 1366 May, [facility] [address] 98494- 9894 May, Hypoxia R09.02 [facility] [address] 73440- 5890 May, [facility] [address] 18500- 5914 May, Pulmonary emphysema, unspecified emphysema type J43.9 [facility] [address] [place] [address] 68000 -5689 May, [facility] [address] [place] [address] 27958- 4942 May, [facility] [address] [place] [address] 58665- 4746 May, [facility] [address] [place] [address] 04559- 4899 May, Chronic pain G89.29 ; Encounter for immunization Z23 ; Right anterior knee pain M25.561 and Cough R05 [facility] [address] 49357- 2112 Apr, Chronic pain G89.29 [facility] [address] [place] [address] 55666- 1689 Apr, [facility] [address] 21722- 5034 Apr, Generalized anxiety disorder F41.1 and Depression, unspecified depression type F32.9 [facility] [address] [place] [address] 52233- 3344 Apr, Chronic pain G89.29 ; Hypokalemia E87.6 and Insomnia, unspecified type G47.00 [facility] [address] [place] [address] 88110- 4558 Apr, [facility] [address] [place] [address] 10902- 7589 Apr, Chronic pain G89.29 [facility] [address] [place] [address], [place] [address]- 1924 Apr, [facility] [address] [place] [address] 40661- 8587 Mar, [facility] [address] [place] [address] 05084- 4088 Mar, Insomnia, unspecified type G47.00 [facility] [address] [place] [address] 89814- 8924 Mar, Chronic pain G89.29 [facility] [address] [place] [address] 45783- 2031 Mar, [facility] [address] [place] [address] 57571- 4220 Feb, [facility] [address] [place] [address] 04469- 4204 Feb, [facility] [address] [place] [address] 70692- 8000 Feb, [facility] [address] [place] [address] 77155- 4504 Feb, [facility] [address] [place] [address] 78708- 4845 Feb, [facility] [address] [address]- 4336 29 Jan, 2016 [facility] [address] [place] [address] 18080- 8940 26 Jan, 2016 [facility] [address] [place] [address] 31349- 4796 20 Jan, 2015 [facility] [address] [place] [address] 99210- 5079 13 Jan, 2016 [facility] [address] [place] [address] 97822- 1364 12 Jan, 2016 [facility] [address] [place] [address] 27408- 7301 07 Jan, 2016 Chronic pain G89.29 [facility] [address] [place] [address] 03234- 0889 Jan, Chronic pain G89.29 and Fibromyalgia M79.7 [facility] [address] [place] [address] 48468- 0567 Dec, Depression, unspecified depression type F32.9 and Generalized anxiety disorder 300.02 [facility] [address] [place] [address] 06499- 9545 Dec, Dysthymia F34.1 ; Insomnia, unspecified type G47.00 and Chronic pain G89.29 [facility] [address] [place] [address] 26068- 9792 Dec, Chronic pain G89.29 [facility] [address] [place] [address] 99820- 9813 Dec, Insomnia, unspecified type G47.00 [facility] [address] [place] [address] 41621- 3532 Dec, Fibromyalgia M79.7 and Chronic pain G89.29 [facility] [address] [place] [address] 76039- 2189 Dec, [facility] [address] [address]- 3188 Dec, [facility] [address] [place] [address] 36432- 2824 Dec, [facility] [address] [place] [address] 12006- 3139 Dec, [facility] [address] [place] [address] 64196- 9037 Dec, Chronic pain G89.29 [facility] [address] [place] [address] 84349- 4321 Dec, [facility] [address] [place] [address] 05642- 7861 Dec, [facility] [address] [place] [address] 77736- 3249 Dec, [facility] [address] [place] [address] 27416- 3159 Dec, Chronic pain G89.29 and Dysthymia F34.1 [facility] [address] [place] [address] 42699- 9433 Nov, [facility] [address] [place] [address] 85358- 7439 Nov, Hypokalemia E87.6 and Chronic pain G89.29 [facility] [address] [place] [address] 59926- 1916 Nov, Back pain M54.9 and Pain in right knee M25.561 [facility] [address] [place] [address] 11895- 2826 Nov, [facility] [address] [place] [address] 57877- 0722 Nov, Chronic pain G89.29 [facility] [address] [place] [address] 75119- 2332 Nov, Chronic pain G89.29 ; Weight loss R63.4 ; Bone pain M89.8X9 and Insomnia, unspecified type G47.00 [facility] [address] [place] [address] 71384- 9963 Nov, Chronic pain G89.29 [facility] [address] [place] [address] 62970 2546 Nov, Chronic pain G89.29 [facility] [address] [place] [address] 47000- 8152 Oct, Chronic pain G89.29 [facility] [address] [place] [address] 46818- 8117 Oct, UTI symptoms R39.9 [facility] [address] [place] [address] 33323- 9599 Oct, Chronic pain G89.29 [facility] [address] [place] [address] 89355- 5710 Oct, Chronic pain G89.29 [facility] [address] [place] [address] 83513- 3529 Oct, Chronic pain G89.29 [facility] [address] [place] [address] 96682- 6155 Oct, Right upper quadrant abdominal pain R10.11 [facility] [address] [place] [address] 63121- 9063 Oct, Chronic pain G89.29 [facility] [address] [place] [address] 73289 2544 Oct, [facility] [address] [place] [address] 06312- 0610 September, Chronic pain G89.29 [facility] [address] [place] [address] 39212- 5751 September, Dysuria R30.0 and Urinary tract infection without hematuria , site unspecified N39.0 [facility] [address] [place] [address] September, [facility] [id number] [place] [address] 38122- 9990 September, Dysuria R30.0 [facility] [address] [place] [address] September, Chronic pain G89.29 [facility] [id number] [place] [address] 2549 September, Chronic pain G89.29 and Essential hypertension I10 [facility] [id number] [place] [address] 95948- 9855 September, [facility] [id number] [place] [address] 00325- 4445 September, [facility] [id number] [place] [address] 06140- 3582 September, [facility] [id number] [place] [address] 09847- 4284 Aug, UTI symptoms R39.9 [facility] [id number] [place] [address], [place] [address]- [address] Aug, Dysuria R30.0 [facility] [id number] [place] [address] 68527- 7508 Aug, [facility] [id number] [place] [address] 33600- 7414 Aug, [facility] [address] [place] [address] Aug, [facility] [id number] [place] [address] 05938- 2542 Aug, Chronic pain G89.29 [facility] [address] [address] Aug, Dysthymia F34.1 [facility] [address] [address] Aug, Conjunctivitis, unspecified conjunctivitis type, unspecified laterality H10.9 [facility] [id number] [place] [address] 31 Jul, 2015 Chronic pain G89.29 ; Back pain M54.9 ; Tobacco abuse Z72.0 and Weight decrease R63.4 [facility] [id number] [place] [address] 14114- 7132 30 Jul, 2015 [facility] [id number] [place] [address] 66654- 2786 30 Jul, 2015 [facility] [id number] [place] [address] 77755- 0209 24 Jul, 2015 Chronic pain G89.29 [facility] [id number] [address] 22 Jul, 2015 [facility] [id number] [address] 08[address] 21 Jul, 2015 [facility] [id number] [place] [address] 6357 18 Jul, 2015 [facility] [id number] [place] [address] 4084 17 Jul, 2015 [facility] [id number] [place] [address] 9082 17 Jul, 2015 Chronic pain G89.29 [facility] [id number] [place] [address] 5644 16 Jul, 2015 Chronic pain G89.29 [facility] [address] [address] 1747 15 Jul, 2015 [facility] [id number] [place] [address] [address] 10 Jul, 2015 [facility] [id number] [place] [address] 0309 Jul, [facility] [id number] [place] [address] 44620- 2049 Jul, [facility] [address] [address]- [address]20 Jun, [facility] [id number] [place] [address] 29920- 0126 Jun, Depression, unspecified depression type F32.9 [facility] [address] [address]- 7851 Jun, Pain in right knee M25.561 [place] [address] [address]- 7816 Jun, Chronic pain G89.29 ; Back pain M54.9 ; Bone pain M89.8X9 and Weight loss R63.4 [place] [address] [address]- 9336 Jun, [facility] [id number] [place] [address] 69362- 0201 May, [place] [id number] [place] [address] 96745- 3651 May, UTI symptoms R39.9 ; Pain in right knee M25.561 ; Right low back pain, with sciatica presence unspecified M54.5 ; Right foot pain M79.671 ; Hypokalemia E87.6 and Screening, lipid Z13.220 [facility] [id number] [place] [address] 50202- 8086 May, [place] [address] [address]- 2378 May, [facility] [id number] [place] [address] 18829- 9779 Mar, [facility] [id number] [place] [address] 15695- 6157 Mar, [facility] [id number] [place] [address] 89829- 5278 Mar, Hypokalemia E87.6 [facility] [id number] [place] [address] 99498- 8652 Mar, Pain in right leg M79.604 ; Encounter for immunization Z23 ; Pain in right knee M25.561 and Hypokalemia E87.6 [facility] [id number] [place] [address] 23235- 6726 Jan, [facility] [id number] [place] [address] 09937- 3856 Jan, [facility] [id number] [place] [address] 58131- 8331 Jan, Abdominal pain, generalized 789.07 [facility] [id number] [place] [address] 74309- 6897 Jan, Abdominal pain, generalized 789.07 [facility] [id number] [place] [address] 92294- 3889 Dec, [facility] [id number] [place] [address] 22461- 8613 Dec, [facility] [id number] [place] [address] 03433- 3935 Dec, [facility] [id number] [place] [address] 66838- 1072 Nov, Hallux valgus 735.0 and Hammertoe 735.4 [facility] [id number] [place] [address] 60634- 3496 Nov, [facility] [id number] [place] [address] 88572- 9596 Nov, Hallux valgus 735.0 and Hammer toe 735.4 [facility] [id number] [place] [address] 11764- 6040 Oct, [facility] [address] [facility] [id number] [place] [address] 4376 Oct, [facility] [id number] [place] [address]- 9615 Oct, Pre-op evaluation V72.84 [facility] [id number] [place] [address]- 5565 Oct, [facility] [id number] [place] [address] 60903- 1857 Oct, [facility] [address] [place] [address]- 3882 September, [facility] [id number] [place] [address] 87130- 7432 September, [facility] [id number] [place] [address]- 1389 September, Hallux valgus (acquired) 735.0 and Other hammer toe ( acquired) 735.4 [facility] [id number] [place] [address]- 1179 Aug, [facility] [id number] [place] [address]- 7858 Aug, [facility] [id number] [place] [address]- 2194 Jul, [facility] [id number] [place] [address]- 9800 Jul, [facility] [id number] [place] [address]- 7823 Jul, [facility] [address] [facility] [id number] [place] [address]- 1480 Jul, [facility] [address] [facility] [id number] [place] [address]- 8630 Jul, [facility] [address] [place] [address]- 0606 Jul, [facility] [place] [facility] [address] [id number] [place] [address]- 2783 Jul, [facility] [place] [facility] [address] [id number] [place] [address]- 4061 Jul, [facility] [place] [facility] [address] [facility] [id number] [place] [address]- 2056 Jun, 2014 [facility] [place] [facility] [address] [id number] [place] [address]- 6488 Jun, 2014 [facility] [place] [facility] [address] [id number] [place] [address]- 9620 Jun, 2014 [facility] [place] [facility] [address] [id number] [place] [address]- 6598 Jun, 2014 [facility] [place] [facility] [address] [facility] [id number] [place] [address]- 3821 Jun, 2014 [facility] [place] [facility] [address] [id number] [place] [address]- 6348 Jun, [facility] [place] [facility] [address] [id number] [place] [address]- 7991 Jun, 2014 [facility] [place] [facility] [address] [facility] [id number] [place] [address]- 2397 Jun, [facility] [place] [facility] [address] [facility] [id number] [place] [address]- 1917 Jun, [facility] [place] [facility] [address] [facility] [id number] [place] [address]- 7072 Jun, [facility] [place] [facility] [address] [id number] [place] [address]- 9626 May, [facility] [place] [facility] [address] [facility] [id number] [place] [id number] 2523 May, [facility] [place] [facility] [address] [id number] [place] [address]- 5991 May, [facility] [place] [facility] [address] [id number] [place] [address]- 3741 May, [facility] [place] [facility] [address] [id number] [place] [address]- 7520 May, [facility] [place] [facility] [address] [id number] [place] [address]- 5533 May, [facility] [place] [facility] [address] [id number] [place] [address]- 1049 May, [facility] [address] [id number] [place] [address]- 8631 May, [facility] [place] [facility] [address] [id number] [place] [address]- 0554 May, [facility] [place] [facility] [address] [id number] [place] [address]- 4713 May, [facility] [address] [id number] [place] [address]- 2785 May, [facility] [place] [facility] [address] [id number] [place] [address]- 9838 May, [facility] [place] [facility] [address] [id number] [place] [address]- 2481 May, [facility] [place] [facility] [address] [id number] [place] [address]- 3955 May, [facility] [place] [facility] [address] [id number] [place] [address]- 3743 May, [facility] [place] [facility] [address] [id number] [place] [address]- 5175 May, [facility] [place] [facility] [address] [id number] [place] [address]- 3576 May, [facility] [place] [facility] [address] [id number] [place] [address]- 2606 May, [facility] [place] [facility] [address] [id number] [place] [address]- 7016 Apr, [facility] [place] [facility] [address] [id number] [place] [address]- 3879 Apr, [facility] [place] [facility] [address] [id number] [place] 3274 Apr, [facility] [place] [facility] [address] [id number] [place] [address]- 3552 Apr, [facility] [place] [facility] [address] [id number] [place] [address]- 5031 Apr, [facility] [place] [facility] [address] [id number] [place] [address]- 2744 Apr, [facility] [place] [facility] [address] [id number] [place] [address]- 8435 Apr, [facility] [place] [facility] [address] [id number] [place] [address]- 3418 Apr, [facility] [place] [facility] [address] [id number] [place] [address]- 1204 Apr, [facility] [place] [facility] [address] [id number] [place] [address]- 1809 Mar, [facility] [place] [facility] [address] [id number] [place] [address]- 6206 Mar, [facility] [place] [facility] [address] [id number] [place] [address]- 5142 Mar, [facility] [place] [facility] [address] [id number] [place] [address]- 2357 Mar, [facility] [place] [facility] [address] [id number] [place] [address]- 9602 Mar, [facility] [place] [facility] [address] [id number] [place] [address]- 7809 Feb, [facility] [place] [facility] [address] [id number] [place] [address]- 5317 Feb, [facility] [place] [facility] [address] [id number] [place] [address]- 2257 Feb, 2013 [facility] [place] [facility] [address] [id number] [place] [address]- 6690 Feb, 2013 [facility] [place] [facility] [address] [id number] [place] 6210 Feb, 2013 [facility] [place] [facility] [address] [id number] [place] [address]- 6875 Feb, 2013 [facility] [place] [facility] [address] [id number] [place] [address]- 1277 Feb, 2013 [facility] [place] [facility] [address] [id number] [place] [address]- 3593 Feb, 2013 [facility] [place] [facility] [address] [id number] [place] [address]- 7508 Feb, 2013 [facility] [place] [facility] [address] [id number] [place] [address]- 2966 Feb, 2013 [facility] [place] [facility] [address] [id number] [place] [address]- 5353 Feb, 2013 [facility] [place] [facility] [address] [id number] [place] [address]- 4593 Feb, 2013 [facility] [place] [facility] [address] [id number] [place] [address]- 3958 Feb, 2013 [facility] [place] [facility] [address] [id number] [place] [address]- 7313 Feb, 2013 [facility] [place] [facility] [address] [id number] [place] [address]- 1848 Feb, 2013 [facility] [place] [facility] [address] [id number] [place] [address]- 2068 Feb, 2013 [facility] [place] [facility] [address] [id number] [place] [address]- 4673 Jan, 2013 [facility] [place] [facility] [address] [id number] [place] [address]- 9950 23 Jan, 2013 [facility] [place] [facility] [address] [id number] [place] [address]- 7029 20 Jan, 2013 [facility] [place] [facility] [address] [id number] [place] [address]- 1407 19 Jan, 2013 [facility] [place] [facility] [address] [id number] [place] [address]- 4631 Jan, 2013 [facility] [place] [facility] [address] [id number] [place] [address]- 0653 Jan, 2013 [facility] [place] [facility] [address] [id number] [place] [address]- 1020 Jan, [facility] [place] [facility] [address] [id number] [place] [address]- 6427 Jan, [facility] [place] [facility] [address] [id number] [place] [address]- 6143 Dec, [facility] [place] [facility] [address] [id number] [place] [address]- 2611 Dec, [facility] [place] [facility] [address] [id number] [place] [address]- 8830 Nov, [facility] [place] [facility] [address] [id number] [place] [address]- 1895 Nov, [facility] [place] [facility] [address] [id number] [place] [address]- 6212 Nov, [facility] [place] [facility] [address] [id number] [place] [address]- 4050 Nov, [facility] [place] [facility] [address] [id number] [place] [address]- 6515 Nov, [facility] [place] [facility] [address] [id number] [place] [address]- 3922 Nov, [facility] [place] [facility] [address] [id number] [place] 1100 Nov, [facility] [place] [facility] [address] [id number] [place] [address]- 0066 Nov, [facility] [place] [facility] [address] [id number] [place] 6319 Nov, [facility] [place] [facility] [address] [id number] [place] 0160 Oct, [facility] [place] [facility] [address] [id number] [place] [address]- 6971 Oct, [facility] [place] [facility] [address] [id number] [place] [address]- 8769 Oct, [facility] [place] [facility] [address] [id number] [place] [address]- 9939 Oct, [facility] [place] [facility] [address] [id number] [place] [address]- 0147 Oct, [facility] [place] [facility] [address] [id number] [place] [address]- 0271 Oct, [facility] [place] [facility] [address] [id number] [place] [address]- 7575 September, [facility] [place] [facility] [address] [id number] [place] [address]- 8462 September, [facility] [place] [facility] [address] [id number] [place] [address]- 3453 September, [facility] [place] [facility] [address] [id number] [place] [address]- 8381 September, [facility] [place] [facility] [address] [id number] [place] [address]- 6207 September, [facility] [place] [facility] [address] [id number] [place] [address]- 6083 September, [facility] [place] [facility] [address] [id number] [place] [address]- 5474 September, [facility] [place] [facility] [address] [id number] [place] [address]- 9118 September, [facility] [place] [facility] [address] [id number] [place] [address]- 1254 September, [facility] [place] [facility] [address] [id number] [place] [address]- 4053 September, [facility] [place] [facility] [address] [id number] [place] [address]- 6457 September, [facility] [place] [facility] [address] [id number] [place] [address]- 4670 September, [facility] [place] [facility] [address] [id number] [place] [address]- 0283 September, [facility] [place] [facility] [address] [id number] [place] [address]- 5914 September, [facility] [place] [facility] [address] [id number] [place] [address]- 9152 September, [facility] [place] [facility] [address] [id number] [place] [address]- 3259 September, [facility] [place] [facility] [address] [id number] [place] [address]- 9738 September, [facility] [place] [facility] [address] [id number] [place] [address]- 7857 September, [facility] [place] [facility] [address] [id number] [place] [address]- 7221 September, [facility] [place] [facility] [address] [id number] [place] [address]- 4995 September, [facility] [place] [facility] [address] [id number] [place] [address]- 2724 Aug, [facility] [place] [facility] [address] [id number] [place] [address]- 6731 Aug, [facility] [place] [facility] [address] [id number] [place] [address]- 3261 Aug, [facility] [place] [facility] [address] [id number] [place] [address]- 3102 Aug, 2013 [facility] [place] [facility] [address] [id number] [place] [address]- 0628 18 Aug, 2013 [facility] [place] [facility] [address] [id number] [place] [address]- 8607 18 Aug, 2013 [facility] [place] [facility] [address] [id number] [place] [address]- 5122 16 Aug, 2013 [facility] [place] [facility] [address] [id number] [place] [address]- 3539 16 Aug, 2013 [facility] [place] [facility] [address] [id number] [place] [address]- 0152 15 Aug, 2013 [facility] [place] [facility] [address] [id number] [place] [address]- 4772 15 Aug, 2013 [facility] [place] [facility] [address] [id number] [place] [address]- 8128 14 Aug, 2013 [facility] [place] [facility] [address] [id number] [place] [address]- 9289 Aug, [facility] [place] [facility] [address] [id number] [place] [address]- 2419 Aug, [facility] [place] [facility] [address] [id number] [place] [address]- 9378 Aug, [facility] [place] [facility] [address] [id number] [place] [address]- 8218 Aug, [facility] [place] [facility] [address] [id number] [place] [address]- 4068 Jul, [facility] [place] [facility] [address] [id number] [place] [address]- 8703 Jul, [facility] [place] [facility] [address] [id number] [place] [address]- 5360 Jul, [facility] [place] [facility] [address] [id number] [place] [address]- 0766 Jul, [facility] [place] [facility] [address] [id number] [place] [address]- 4175 20 Jul, 2013 [facility] [place] [facility] [address] [id number] [place] [address]- 0673 20 Jul, 2013 [facility] [place] [facility] [address] [id number] [place] [address]- 3134 18 Jul, 2013 [facility] [place] [facility] [address] [id number] [place] [address]- 9566 18 Jul, 2013 [facility] [place] [facility] [address] [id number] [place] [address]- 6127 Jul, [facility] [place] [facility] [address] [id number] [place] [address]- 8674 Jul, [facility] [place] [facility] [address] [id number] [place] [address]- 9030 Jul, [facility] [place] [facility] [address] [id number] [place] [address]- 0524 04 Jul, 2013 [facility] [place] [facility] [address] [id number] [place] [address]- 5341 Jul, [facility] [place] [facility] [address] [id number] [place] [address]- 0732 Jul, [facility] [place] [facility] [address] [facility] [id number] [place] [address]- 4590 Jul, [facility] [place] [facility] [address] [id number] [place] [address] 18 Jun, 2013 [facility] [place] [facility] [address] [id number] [place] [address] 18 Jun, 2013 [facility] [place] [facility] [address] [id number] [place] [address] 13 Jun, 2013 [facility] [place] [facility] [address] [id number] [place] [address] 13 Jun, 2013 [facility] [place] [facility] [address] [id number] [place] [address] Jun, [facility] [place] [facility] [address] [id number] [place] [address] Jun, [facility] [place] [facility] [address] [id number] [place] [address] May, [facility] [place] [facility] [address] [id number] [place] [address] May, [facility] [place] [facility] [address] [id number] [place] [address] May, [facility] [place] [facility] [address] [id number] [place] [address] May, [facility] [place] [facility] [address] [id number] [place] [address] May, [facility] [place] [facility] [address] [id number] [place] [address] May, [facility] [place] [facility] [address] [id number] [place] [address] May, [facility] [place] [facility] [address] [id number] [place] [address] May, [facility] [place] [facility] [address] [id number] [place] [address]- [address] May, [facility] [place] [facility] [address] [id number] [place] [address] May, [facility] [place] [facility] [address] [id number] [place] [address] May, [facility] [place] [facility] [address] [id number] [place] [address] May, [facility] [place] [facility] [address] [id number] [place] [address] May, [facility] [place] [facility] [address] [id number] [place] [address] May, [facility] [place] [facility] [address] [id number] [place] [address]- [address] May, [facility] [address] [id number] [place] [address]- [address] Apr, [facility] [place] [facility] [address] [id number] [place] [address] Apr, [facility] [address] [id number] [place] [address] Apr, [facility] [place] [facility] [address] [id number] [place] [address] Apr, [facility] [address] [id number] [place] [address] Apr, [facility] [address] [id number] [place] [address] Apr, [facility] [address] [id number] [place] [address] Apr, [facility] [address] [id number] [place] [address] Apr, [facility] [address] [id number] [place] [address]- 365[address] Apr, [facility] [address] [id number] [place] [address] Apr, [facility] [address] [id number] [place] [address] Mar, [facility] [place] [facility] [address] [id number] [place] [address] Mar, [facility] [place] [facility] [address] [id number] [place] [address] Mar, [facility] [place] [facility] [address] [id number] [place] [address] 97[address] Mar, [facility] [place] [facility] [address] [id number] [place] [address] Mar, [facility] [place] [facility] [address] [id number] [place] [address] Mar, [facility] [place] [facility] [address] [id number] [place] [address] Mar, [facility] [place] [facility] [address] [id number] [place] [address]- [address] Mar, [facility] [place] [facility] [address] [id number] [place] [address]- [address] Mar, [facility] [place] [facility] [address] [id number] [place] [address]- 1336 Mar, [facility] [place] [facility] [address] [id number] [place] [address]- 47[address] Mar, [facility] [place] [facility] [address] [id number] [place] [address]- [address] Mar, [facility] [place] [facility] [address] [id number] [place] [address]- [address] Mar, [facility] [place] [facility] [address] [id number] [place] [address]- [address] Mar, [facility] [place] [facility] [address] [id number] [place] [address]- [address] Mar, [facility] [place] [facility] [address] [id number] [place] [address]- [address] 18 Mar, 2013 [facility] [place] [facility] [address] [id number] [place] [address]- [address] 14 Mar, 2013 [facility] [place] [facility] [address] [id number] [place] [address]- [address] 14 Mar, 2013 [facility] [place] [facility] [address] [id number] [place] [address]- [address] Mar, [facility] [place] [facility] [address] [id number] [place] [address]- [address]600 Mar, [facility] [place] [facility] [address] [id number] [place] [address]- [address] Mar, [facility] [place] [facility] [address] [id number] [place] [address]- [address] Mar, [facility] [place] [facility] [address] [id number] [place] [address]- 9816 Mar, [facility] [place] [facility] [address] [id number] [place] [address]- 2827 Feb, [facility] [place] [facility] [address] [id number] [place] [address]- 2515 Feb, [facility] [place] [facility] [address] [id number] [place] [address]31 Feb, [facility] [place] [facility] [address] [id number] [place] [address] 16 Feb, 2013 [facility] [place] [facility] [address] [id number] [place] [address]- [address] 15 Feb, 2013 [facility] [place] [facility] [address] [id number] [place] [address]- [address]68 Feb, [facility] [place] [facility] [address] [id number] [place] [address]- [address]491 Feb, [facility] [place] [facility] [address] [id number] [place] [address] Feb, [facility] [place] [facility] [address] [id number] [place] [address]- [address] Feb, [facility] [place] [facility] [address] [id number] [place] [address]- [address]852 Feb, [facility] [place] [facility] [address] [id number] [place] [address]- [address] 30 Jan, 2013 [facility] [place] [facility] [address] [id number] [place] [address]- [address] 26 Jan, 2013 [facility] [place] [facility] [address] [id number] [place] [address]88 24 Jan, 2013 [facility] [place] [facility] [address] [id number] [place] [address] Jan, [facility] [address] [id number] [place] [address] 7962 Jan, [facility] [address] [id number] [place] [address]88 Dec, [facility] [address] [id number] [place] [address] 2416 Dec, [facility] [address] [id number] [place] [address] 7343 Dec, [facility] [address] [id number] [place] [address] 3956 Dec, [facility] [address] [id number] [place] [address] 3784 Dec, [facility] [address] [id number] [place] [address] 8690 Dec, [facility] [address] [id number] [place] [address] 6115 Dec, [facility] [address] [id number] [place] [address]- 8588 Nov, [facility] [address] [id number] [place] [address]- 1166 Nov, [facility] [place] [facility] [address] [id number] [place] [address] 6525 Nov, [facility] [address] [id number] [place] [address] Nov, [facility] [place] [facility] [address] [id number] [place] [address]- 3170 Nov, [facility] [place] [facility] [address] [id number] [place] [address]- 4797 Oct, [facility] [place] [facility] [address] [id number] [place] [address]- 7546 Oct, [facility] [address] [id number] [place] [address] 8551 Oct, [facility] [address] [id number] [place] [address] 1356 September, [facility] [address] [id number] [place] [address]- 6426 September, [facility] [address] [id number] [place] [address]- 0336 September, [facility] [address] [id number] [place] [address]- 2357 September, [facility] [address] [id number] [place] [address]- 1726 September, [facility] [address] [id number] [place] [address]- 1531 September, [facility] [address] [id number] [place] [address] 1976 September, [facility] [address] [id number] [place] [address]- 8521 Aug, [facility] [address] [id number] [place] [address]- 4707 Aug, [facility] [place] [facility] [address] [id number] [place] [address]- 4846 Aug, [facility] [place] [facility] [address] [id number] [place] [address]- 9951 29 Jul, 2012 [facility] [place] [facility] [address] [id number] [place] [address]- 5435 Jul, [facility] [place] [facility] [address] [id number] [place] [address]- [address] Jul, [facility] [place] [facility] [address] [id number] [place] [address]- 0355 Jul, [facility] [place] [facility] [address] [id number] [place] [address]- 4742 18 Jul, 2012 [facility] [address] [id number] [place] [address] 2546 18 Jul, 2012 [facility] [address] [id number] [place] [address] 2546 Jul, [facility] [address] [id number] [place] [address]- 8796 28 Jun, 2012 [facility] [address] [id number] [place] [address] 2544 27 Jun, 2012 [facility] [address] [id number] [place] [address]- 0356 Jun, [facility] [address] [id number] [place] [address]- 2546 Jun, [facility] [address] [id number] [place] [address]- 7160 15 Jun, 2012 [facility] [address] [id number] [place] [address]- 2549 15 Jun, 2012 [facility] [address] [id number] [place] [address]- 5090 Jun, [facility] [address] [id number] [place] [address]- 1471 Jun, [facility] [address] [id number] [place] [address] 2546 Jun, [facility] [address] [id number] [place] [address] 254 Jun, [facility] [place] [facility] [address] [id number] [place] [address]- 6381 May, [facility] [place] [facility] [address] [id number] [place] [address] 2546 May, [facility] [place] [facility] [address] [id number] [place] [address]- 0198 May, [facility] [place] [facility] [address] [id number] [place] [address]- 3435 17 May, 2012 [facility] [place] [facility] [address] [id number] [place] [address]- 7719 15 May, 2012 [facility] [place] [facility] [address] [id number] [place] [address]- 3490 07 May, 2012 [facility] [place] [facility] [address] [id number] [place] [address]- 1863 31 Apr, 2012 [facility] [place] [facility] [address] [id number] [place] [address]- 7705 31 Apr, 2012 [facility] [place] [facility] [address] [id number] [place] [address]- 7519 Apr, [facility] [place] [facility] [address] [id number] [place] [address]- 1725 Apr, [facility] [place] [facility] [address] [id number] [place] [address]- 6588 Apr, [facility] [place] [facility] [address] [id number] [place] [address]- 8197 Apr, [facility] [place] [facility] [address] [id number] [place] [address]- 3729 Apr, [facility] [place] [facility] [address] [id number] [place] [address]- 7282 Mar, [facility] [place] [facility] [address] [id number] [place] [address]- 3388 29 Mar, 2012 [facility] [place] [facility] [address] [id number] [place] [address]- 1314 Mar, [facility] [place] [facility] [address] [id number] [place] [address]- 6791 Mar, [facility] [place] [facility] [address] [id number] [place] [address] Mar, [facility] [place] [facility] [address] [id number] [place] [address]- 4702 Mar, [facility] [place] [facility] [address] [id number] [place] [address]- 5655 18 Mar, 2012 [facility] [place] [facility] [address] [id number] [place] [address]- 6702 Mar, [facility] [place] [facility] [address] [id number] [place] [address]- 8686 Mar, [facility] [place] [facility] [address] [id number] [place] [address]- 3073 Mar, [facility] [place] [facility] [address] [id number] [place] [address]- 9815 Mar, [facility] [place] [facility] [address] [id number] [place] [address]- 0772 Mar, [facility] [place] [facility] [address] [facility] [id number] [place] [address]- 9529 Mar, [facility] [place] [facility] [address] [id number] [place] [address]- 8911 Mar, [facility] [place] [facility] [address] [id number] [place] [address]- 3059 Mar, [facility] [place] [facility] [address] [facility] [id number] [place] [address]- 6863 Mar, [facility] [place] [facility] [address] [id number] [place] [address]- 1118 Mar, [facility] [place] [facility] [address] [id number] [place] [address]- 4677 Feb, [facility] [place] [facility] [address] [id number] [place] [address]- 9627 Feb, [facility] [place] [facility] [address] [facility] [id number] [place] [address]- 7946 Feb, [facility] [place] [facility] [address] [facility] [id number] [place] [address]- 8403 Feb, [facility] [place] [facility] [address] [id number] [place] [address]- 1863 16 Feb, 2012 [facility] [place] [facility] [address] [id number] [place] [address]- 0366 16 Feb, 2012 [facility] [place] [facility] [address] [id number] [place] [address]- 9186 Feb, [facility] [place] [facility] [address] [id number] [place] [address]- 6016 Feb, [facility] [place] [facility] [address] [id number] [place] [address]- 1307 05 Feb, 2012 [facility] [place] [facility] [address] [id number] [place] [address]- 3839 04 Feb, 2012 [facility] [place] [facility] [address] [id number] [place] [address]- 5982 02 Feb, 2012 [facility] [place] [facility] [address] [id number] [place] [address]- 2117 27 Jan, 2012 [facility] [place] [facility] [address] [id number] [place] [address]- 8570 25 Jan, 2012 [facility] [place] [facility] [address] [id number] [place] [address]- 3564 13 Jan, 2012 [facility] [place] [facility] [address] [id number] [place] [address]- 8834 12 Jan, 2012 [facility] [place] [facility] [address] [id number] [place] [address]- 2542 07 Jan, 2012 [facility] [place] [facility] [address] [id number] [place] [address]- 9185 31 Dec, 2011 [facility] [place] [facility] [address] [id number] [place] [address] 2546 24 Dec, 2011 [facility] [place] [facility] [address] [id number] [place] [address]- 3942 22 Dec, 2011 [facility] [place] [facility] [address] [id number] [place] [address]- 0643 Dec, [facility] [place] [facility] [address] [id number] [place] [address]- 1072 Dec, [facility] [place] [facility] [address] [id number] [place] [address]- 7806 Dec, [facility] [place] [facility] [address] [id number] [place] [address]- 6153 Dec, [facility] [place] [facility] [address] [id number] [place] [address]- 9559 Dec, [facility] [place] [facility] [address] [id number] [place] [address]- 0052 Nov, [facility] [place] [facility] [address] [id number] [place] [address]- 2536 Nov, [facility] [place] [facility] [address] [id number] [place] [address]- 2151 Nov, [facility] [place] [facility] [address] [id number] [place] [address]- 5286 Nov, [facility] [place] [facility] [address] [id number] [place] [address]- 5568 Nov, [facility] [place] [facility] [address] [id number] [place] [address]- 8353 Oct, [facility] [place] [facility] [address] [id number] [place] [address]- 2700 Oct, [facility] [place] [facility] [address] [id number] [place] [address]- 5233 September, [facility] [place] [facility] [address] [id number] [place] [address]- 0969 September, [facility] [place] [facility] [address] [id number] [place] [address]- 4761 September, [facility] [place] [facility] [address] [id number] [place] [address]- 8328 September, [facility] [place] [facility] [address] [id number] [place] [address]- 8995 September, [facility] [address] [id number] [place] [address]- 2062 September, [facility] [address] [id number] [place] [address]- 8306 September, [facility] [address] [id number] [place] [address]- 5601 September, [facility] [address] [id number] [place] [address]- 5180 September, [facility] [address] [id number] [place] [address]- 8884 September, [facility] [address] [id number] [place] [address]- 4332 September, [facility] [address] [id number] [place] [address]- 4186 September, [facility] [address] [id number] [place] [address]- 5942 September, [facility] [address] [id number] [place] [address]- 5754 September, [facility] [address] [id number] [place] [address]- 7961 Aug, [facility] [address] [id number] [place] [address]- 1690 Aug, [facility] [address] [id number] [place] [address]- 8541 Aug, [facility] [place] [facility] [address] [id number] [place] [address]- 3499 Aug, [facility] [place] [facility] [address] [id number] [place] [address]- 8825 Jul, [facility] [address] [id number] [place] [address]- 9420 Jul, [facility] [place] [facility] [address] [id number] [place] [address]- 2902 13 Jul, 2011 [facility] [address] [id number] [place] [address]- 9676 28 Jun, 2011 [facility] [place] [address] [facility] [id number] [place] [id number] Jun, [facility] [place] [facility] [address] [id number] [place] [address]- 5036 13 Jun, 2011 [facility] [address] [id number] [place] [address]- 1072 Jun, [facility] [place] [facility] [address] [id number] [place] [address]- 8556 07 Jun, 2011 [facility] [address] [id number] [place] [address]- 0074 Jun, [facility] [address] [id number] [place] [address]- 0286 03 Jun, 2011 [facility] [address] [id number] [place] [address]- 9040 Jun, [facility] [address] [id number] [place] [address]- 3016 May, [facility] [place] [facility] [address] [id number] [place] [address]- 6696 May, [facility] [place] [facility] [address] [id number] [place] [address]- 9064 May, [facility] [place] [facility] [address] [id number] [place] [address]- 9791 May, [facility] [place] [facility] [address] [id number] [place] [address]- 6896 May, [facility] [place] [facility] [address] [id number] [place] [address]- 3039 May, [facility] [place] [facility] [address] [id number] [place] [address]- 9397 May, [facility] [address] [id number] [place] [address]- 2585 May, [facility] [place] [facility] [address] [facility] [id number] [place] [address]- 4071 May, [facility] [place] [facility] [address] [facility] [id number] [place] [address]- 7335 May, [facility] [place] [facility] [address] [id number] [place] [address]- 3040 May, [facility] [address] [facility] [id number] [place] [address], [place] [address]- 6920 May, [facility] [place] [facility] [address] [facility] [id number] [place] [address]- 7090 May, [facility] [id number] [place] [address]- 6482 May, [facility] [place] [facility] [address] [facility] [id number] [place] [address]- 5373 Apr, [facility] [place] [facility] [address] [id number] [place] [address]- 1865 Apr, [facility] [place] [facility] [address] [id number] [place] [address]- 5907 Apr, [facility] [place] [facility] [address] [facility] [id number] [place] [address]- 4270 Mar, [facility] [place] [facility] [address] [facility] [id number] [place] [address]- 2160 Mar, [facility] [place] [facility] [address] [facility] [id number] [place] [address]- 7269 Feb, [facility] [place] [facility] [address] [facility] [id number] [place] [address]- 3166 Feb, [facility] [place] [facility] [address] [id number] [place] [address]- 6429 Feb, [facility] [place] [facility] [address] [id number] [place] [address]- 4367 20 Feb, 2011 [facility] [place] [facility] [address] [id number] [place] [address]- 8126 13 Feb, 2011 [facility] [place] [facility] [address] [id number] [place] [address]- 2536 28 Apr, 2010 [facility] [place] [facility] [address] [id number] [place] [address] 2546 22 Apr, 2010 [facility] [place] [facility] [address] [id number] [place] [address] 2546 16 Apr, 2010 [facility] [place] [facility] [address] [id number] [place] [address]- 8666 15 Apr, 2010 [facility] [place] [facility] [address] [id number] [place] [address]- 8406 15 Apr, 2010 [facility] [place] [facility] [address] [id number] [place] [address]- 0313 Apr, [facility] [place] [facility] [address] [id number] [place] [address]- 4760 24 Mar, 2010 [facility] [place] [facility] [address] [id number] [place] [address]- 8058 17 Mar, 2010 [facility] [place] [facility] [address] [id number] [place] [address]- 3252 17 Mar, 2010 [facility] [place] [facility] [address] [id number] [place] [address]- 4314 28 Feb, 2010 [facility] [place] [facility] [address] [id number] [place] [address] 2541 Feb, [facility] [place] [facility] [address] [id number] [place] [address] 2546 21 Feb, 2010 [facility] [place] [facility] [address] [id number] [place] [address]- 2546 15 Feb, 2010 [facility] [place] [facility] [address] [id number] [place] [address]- 7756 Dec, [facility] [address] [facility] [id number] [place] [address]- 2186 Dec, [facility] [address] [facility] [id number] [place] [address]- 8996 Oct, [facility] [address] [facility] [id number] [place] [address]- 9791 Mar, [facility] [address] [facility] [id number] [place] [address]- 6921 Mar, [facility] [address] [facility] [id number] [place] [address]- 6233 September, IMMUNIZATIONS No Known Immunizations SOCIAL HISTORY Never Assessed REASON FOR VISIT Medicare AW - Initial Visit-Pat [place] PLAN OF CARE Activity Details Follow Up annually for preventive care, sooner for chronic health maintenance , 4 Weeks Reason:dysthymia VITAL SIGNS Height 64 in 2017-06-19 Weight 126.4 lbs 2017-06-19 Temperature 97.8 degrees Fahrenheit 2017-06-19 Heart Rate 64 bpm 2017-06-19 Respiratory Rate 18 2017-06-19 BMI 21.69 kg/m2 2017-06-19 Blood pressure systolic 104 mmHg 2017-06-19 Blood pressure diastolic 72 mmHg 2017-06-19 MEDICATIONS Medication Instructions Dosage Frequency Start Date End Date Duration Status Ventolin HFA 108 (90 Base) MCG/ACT Inhalation every 4 hrs 2 puffs as needed 4h Nov, Active Lansoprazole 30 MG Orally Once a day 1 capsule 24h 30 days Active Robaxin 500 mg Orally 4 times a day 1 tablet 6h 30 Active Acetaminophen-Codeine #3 300-30 MG Orally every 6 hrs 1 tablet as needed 6h 07 Oct, 2016 28 days Active Toprol XL 50 MG Orally once daily 1 tablet 24h Aug, 30 Active Fluticasone Propionate 50 MCG/ACT Nasally twice a day 1 spray in each nostril 12h Feb, 30 day(s) Active Neurontin 100 mg Orally 3 times a day 1 capsule 8h 25 Sep, 2016 30 days Active Dicyclomine HCl 20 mg Orally 3 times a day 1 tablet 8h 20 Apr, 2017Oct 30 days Active Chlordiazepoxide HCl 10 MG Orally Three times a day 2 capsules 8h 22 Apr, 2017 28 days Active RESULTS Name Result Date Reference Range COLOGUARD (OUTSIDE ORDER) 2017-07-18 PROCEDURES Procedure Date Ordered Result Body Site INIT PREV PE LTD DUR 1ST 12 MOS MCR Jun 19, 2017 FALL RISK ASSESSMENT DOCD Jun 19, 2017 PT TOBACCO SCREEN RCVD TLK Jun 19, 2017 INSTRUCTIONS MEDICATIONS ADMINISTERED No Known Medications [...]
--- OUTSIDE RECORDS SUMMARY | 2017-11-27 15:31 | XMS REPORT ---
Author Author VALERIE ZAVALA [facility] Address [address] [place] [address] Care Team Providers Care Licensed Loan Officer Name Role Phone VALERIE ZAVALA Unavailable PROBLEMS Type Condition ICD9-CM Code [id number] Code Onset Dates Condition Status SNOMED Code Problem Generalized anxiety disorder F41.1 Active 22965325 Problem Hypokalemia E87.6 Active 574158435 Problem Right low back pain, with sciatica presence unspecified M54.5 Active 526898988 Problem Post-traumatic stress disorder, chronic F43.12 Active 25886571 Problem Pain in right knee M25.561 Active 99266051 Problem Gastroesophageal reflux disease without esophagitis K21.9 Active 080509146 Problem UTI symptoms R39.9 Active 23437008 Problem Essential hypertension I10 Active 46797091 Problem Anxiety F41.9 Active 84076196 Problem Neuropathy G62.9 Active 302813010 Problem Other chronic pain G89.29 Active 44897353 Problem Generalized abdominal pain R10.84 Active 940193938 Problem Chronic pain G89.29 Active 01759090 Problem Back pain M54.9 Active 906855229 Problem Right foot pain M79.671 Active 50505066 Problem Panic attacks F41.0 Active 632210842 Problem Other emphysema J43.8 Active 25414617 Problem Kidney stones N20.0 Active 92139291 Problem Renal calculus, right N20.0 Active 44680761 Problem Weight decrease R63.4 Active 216900387 Problem Tobacco abuse Z72.0 Active 54540847 Problem Bone pain M89.8X9 Active 43362633 Problem Depression, unspecified depression type F32.9 Active 33292065 Problem Insomnia, unspecified type G47.00 Active 038512152 Problem Pulmonary emphysema, unspecified emphysema type J43.9 Active 59793169 Problem Right upper quadrant abdominal pain R10.11 Active 352034131 Problem Weight loss R63.4 Active 982199923 ALLERGIES No Information ENCOUNTERS Encounter Location Date Diagnosis [facility] [address] [address] Nov, [facility] [id number] [place] [address] 23987- 5954 Oct, Medicare welcome exam Z00.00 [facility] [id number] [place] [address] 73910- 4876 18 Oct, 2017 Gross hematuria R31.0 ; Urinary tract infection without hematuria, site unspecified N39.0 and Weakness R53.1 [facility] [id number] [place] [address] 75861- 5219 Oct, [facility] [id number] [place] [address] 76008- 6051 Oct, [facility] [id number] [place] [address] 67452- 1677 Oct, Medicare welcome exam Z00.00 [facility] [id number] [place] [address] 65397- 9738 September, Back pain M54.9 and Right anterior knee pain M25.561 [facility] [id number] [place] [address] 07212- 5933 September, [facility] [id number] [place] [address] 52897- 6096 September, [facility] [id number] [place] [address] 85983- 3398 September, Essential hypertension I10 [facility] [id number] [place] [address] 03293- 5626 September, [facility] [id number] [place] [address] 43144- 8724 September, RLQ abdominal pain R10.31 ; Low back pain M54.5 and Other chronic pain G89.29 [facility] [id number] [place] [address] 65566- 1876 Aug, Medicare welcome exam Z00.00 [facility] [id number] [place] [address] 93232- 4252 Aug, [facility] [id number] [place] [address] 46249 2546 Aug, Acute pyelonephritis N10 and Medicare welcome exam Z00.00 [facility] [id number] [place] [address] 59413 -4396 Aug, Dysuria R30.0 and Acute pyelonephritis N10 [facility] [id number] [place] [address] 63914- 1079 Aug, [facility] [id number] [place] [address] 06127- 8744 Aug, [facility] [id number] [place] [address] 48683- 5038 Aug, [facility] [id number] [place] [address] 25118- 8547 Aug, [facility] [id number] [place] [address] 33901- 1195 Jul, [facility] [id number] [place] [address] 03658- 9019 Jul, Renal calculus, right N20.0 and Medicare welcome exam Z00.00 [facility] [id number] [place] [address] 32643 -8944 Jul, Dysuria R30.0 and Renal calculus, right N20.0 [facility] [id number] [place] [address] 97246- 4791 Jul, Medicare welcome exam Z00.00 [facility] [id number] [place] [address] 64617- 7874 13 Jun, 2017 Gastroesophageal reflux disease without esophagitis K21.9 and Generalized abdominal pain R10.84 [facility] [address] [address] 3512 09 Jun, 2017 Medicare welcome exam Z00.00 [facility] [id number] [place] [address] 26453- 6447 05 Jun, 2017 [facility] [id number] [place] [address] 28030- 8104 05 Jun, 2017 Medicare welcome exam Z00.00 and Encounter for screening mammogram for malignant neoplasm of breast Z12.31 [facility] [id number] [place] [address] 69367- 6599 02 Jun, 2017 Chronic pain G89.29 [facility] [id number] [place] [address] 16234- 1383 May, [facility] [id number] [place] [address] 22339- 6668 May, Pelvic pain R10.2 [facility] [id number] [place] [address] 05544- 0553 May, Pelvic pain R10.2 [facility] [id number] [place] [address] 14095 -7472 May, Renal calculus, right N20.0 [facility] [id number] [place] [address] 40257- 9534 May, Hematuria, unspecified type R31.9 and Nephrolithiasis N20.0 [facility] [id number] [place] [address] 44250 -5922 May, Dysuria R30.0 and Nephrolithiasis N20.0 [facility] [id number] [place] [address] 26696- 1797 May, [facility] [id number] [place] [address] 81893 -9665 May, Abdominal pain R10.9 and Kidney stone N20.0 [facility] [id number] [address] 7241 May, [facility] [id number] [place] [address] 00252- 3265 May, Chronic pain G89.29 and Panic attacks F41.0 [facility] [address] [address] 4909 May, Urinary tract infection without hematuria, site unspecified N39.0 [facility] [id number] [address]- 7266 Apr, Right lower quadrant abdominal pain R10.31 and Abnormal serum lipase level R74.8 [facility] [address] [address] 7687 Apr, Recurrent urinary tract infection N39.0 [facility] [id number] [address]- 8540 Apr, UTI symptoms R39.9 ; Recurrent urinary tract infection N39.0 and Pelvic pain R10.2 [facility] [address] [address]- 0016 Apr, Chronic pain G89.29 and Panic attacks F41.0 [facility] [address] [address]- 4259 Apr, Dysuria R30.0 [facility] [address] [address]- 6636 Apr, [facility] [id number] [address]- 8920 Apr, Dysuria R30.0 and Urinary tract infection without hematuria , site unspecified N39.0 [facility] [address] [address]- 4798 Mar, UTI symptoms R39.9 [facility] [id number] [address]- 7055 Mar, [facility] [id number] [place] [address] 95438- 9224 Mar, Panic attacks F41.0 and Chronic pain G89.29 [facility] [address] 88015- 7836 Mar, [facility] [address] 11850- 7457 Mar, Dysuria R30.0 [facility] [address] 05275- 1107 Mar, Dysuria R30.0 [facility] [address] 82556- 8422 Feb, Chronic pain G89.29 ; Shortness of breath R06.02 ; Weight loss R63.4 ; Encounter for immunization Z23 ; Bone pain M89.8X9 ; Right anterior knee pain M25.561 and Cough R05 [facility] [address] 87790- 2961 Feb, Shortness of breath R06.02 [facility] [id number] [place] [address] 76662- 3391 Feb, [facility] [id number] [place] [address] 42774- 0870 Feb, Panic attacks F41.0 and Chronic pain G89.29 [facility] [id number] [place] [address] 54089- 9622 Feb, [facility] [id number] [place] [address] 76140- 4373 Feb, Panic attacks F41.0 ; Shortness of breath R06.02 and Encounter for immunization Z23 [facility] [id number] [place] [address] 04628- 0865 Jan, [facility] [id number] [place] [address] 15376- 6035 15 Jan, 2017 Anxiety F41.9 and Chronic pain G89.29 [facility] [id number] [place] [address] 18272- 8374 Dec, Anxiety F41.9 and Chronic pain G89.29 [facility] [id number] [place] [address] 58798- 4791 Nov, Chronic pain G89.29 [facility] [id number] [place] [address] 02379- 6955 Nov, Anxiety F41.9 [facility] [address] 04954- 3679 Nov, Chronic pain G89.29 ; Essential hypertension I10 and Other emphysema J43.8 [facility] [id number] [place] [address] 18060- 5247 Oct, Anxiety F41.9 [facility] [id number] [place] [address] 88433- 3219 Oct, [facility] [id number] [place] [address] 34680- 3133 Oct, Chronic pain G89.29 [facility] [id number] [place] [address] 11710- 9794 September, Recurrent UTI N39.0 ; Neuropathy G62.9 and Anxiety F41.9 [facility] [id number] [place] [address] 50665- 2414 September, [facility] [id number] [place] [address] 58949- 4904 September, Chronic pain G89.29 [facility] [id number] [place] [address] 31881- 3032 September, [facility] [id number] [place] [address] 13608- 1916 Aug, Post-traumatic stress disorder, chronic F43.12 ; Chronic urinary tract infection N39.0 ; Gastroesophageal reflux disease without esophagitis K21.9 ; Chronic pain G89.29 ; Essential hypertension I10 and Tobacco abuse Z72.0 [facility] [address] [address]8058 Aug, [facility] [id number] [place] [address] 49511- 6818 Aug, Chronic pain G89.29 [facility] [id number] [place] [address] 60201- 5662 Aug, Insomnia, unspecified type G47.00 [facility] [id number] [place] [address] 17540- 7506 Aug, [facility] [id number] [place] [address] 63779- 3025 24 Jul, 2016 Chronic pain G89.29 [facility] [id number] [place] [address] 21822- 3483 Jul, [facility] [id number] [place] [address] 66155- 7945 Jul, [facility] [id number] [place] [address] 63186- 3532 Jul, [facility] [id number] [place] [address] 01117- 7420 15 Jul, 2016 Recurrent UTI (urinary tract infection) N39.0 [facility] [address] [address]- 6467 14 Jul, 2016 [facility] [id number] [place] [address] 07893- 254 Jun, Chronic pain G89.29 [facility] [id number] [address]- 2846 17 Jun, 2016 [facility] [id number] [address]- 6355 Jun, [facility] [id number] [place] [address] 53560- 8011 May, Chronic pain G89.29 [facility] [id number] [place] [address] 60578- 7312 May, Weight loss R63.4 and Shortness of breath R06.02 [facility] [id number] [place] [address] 81757- 1616 May, Chronic pain G89.29 ; Weight loss R63.4 and Tobacco abuse Z72.0 [facility] [address] 48206- 6402 May, [facility] [address] 88540- 0797 May, Hypoxia R09.02 [facility] [address] 74270- 6173 May, [facility] [address] 74981- 3446 May, Pulmonary emphysema, unspecified emphysema type J43.9 [facility] [id number] [place] [address] 28860 -3305 May, [facility] [id number] [place] [address] 50616- 9107 May, [facility] [id number] [place] [address] 13008- 0709 May, [facility] [id number] [place] [address] 11609- 7973 May, Chronic pain G89.29 ; Encounter for immunization Z23 ; Right anterior knee pain M25.561 and Cough R05 [facility] [address] 14260- 7134 Apr, Chronic pain G89.29 [facility] [id number] [place] [address] 67493- 0552 Apr, [facility] [address] 55763- 0630 Apr, Generalized anxiety disorder F41.1 and Depression, unspecified depression type F32.9 [facility] [id number] [place] [address] 24795- 7651 Apr, Chronic pain G89.29 ; Hypokalemia E87.6 and Insomnia, unspecified type G47.00 [facility] [id number] [place] [address] 00876- 4720 Apr, [facility] [id number] [place] [address] 44290- 4951 Apr, Chronic pain G89.29 [facility] [id number] [place] [address], [place] [address]- 2759 Apr, [facility] [id number] [place] [address] 65126- 6948 Mar, [facility] [id number] [place] [address] 53037- 2454 Mar, Insomnia, unspecified type G47.00 [facility] [id number] [place] [address] 63083- 1855 Mar, Chronic pain G89.29 [facility] [id number] [place] [address] 52017- 3735 Mar, [facility] [id number] [place] [address] 68183- 3138 Feb, [facility] [id number] [place] [address] 18693- 2456 Feb, [facility] [id number] [place] [address] 17734- 2596 Feb, [facility] [id number] [place] [address] 00494- 2541 Feb, [facility] [id number] [place] [address] 96692- 9683 Feb, [facility] [address] [address]- 0326 29 Jan, 2016 [facility] [id number] [place] [address] 15865- 9705 26 Jan, 2016 [facility] [id number] [place] [address] 25204- 8098 20 Jan, 2015 [facility] [id number] [place] [address] 70760- 9935 13 Jan, 2016 [facility] [id number] [place] [address] 10673- 7303 12 Jan, 2016 [facility] [id number] [place] [address] 84204- 1745 07 Jan, 2016 Chronic pain G89.29 [facility] [id number] [place] [address] 82311- 0574 Jan, Chronic pain G89.29 and Fibromyalgia M79.7 [facility] [id number] [place] [address] 64159- 2773 Dec, Depression, unspecified depression type F32.9 and Generalized anxiety disorder 300.02 [facility] [id number] [place] [address] 37191- 2453 Dec, Dysthymia F34.1 ; Insomnia, unspecified type G47.00 and Chronic pain G89.29 [facility] [id number] [place] [address] 98729- 3645 Dec, Chronic pain G89.29 [facility] [id number] [place] [address] 96670- 0891 Dec, Insomnia, unspecified type G47.00 [facility] [id number] [place] [address] 93395- 0578 Dec, Fibromyalgia M79.7 and Chronic pain G89.29 [facility] [id number] [place] [address] 22909- 5958 Dec, [facility] [address] [address]- 4503 Dec, [facility] [id number] [place] [address] 09332- 9035 Dec, [facility] [id number] [place] [address] 00216- 8251 Dec, [facility] [id number] [place] [address] 14683- 9928 Dec, Chronic pain G89.29 [facility] [id number] [place] [address] 03874- 3284 Dec, [facility] [id number] [place] [address] 91792- 7982 Dec, [facility] [id number] [place] [address] 00537- 3055 Dec, [facility] [id number] [place] [address] 65646- 4554 Dec, Chronic pain G89.29 and Dysthymia F34.1 [facility] [id number] [place] [address] 79465- 1711 Nov, [facility] [id number] [place] [address] 08850- 2594 Nov, Hypokalemia E87.6 and Chronic pain G89.29 [facility] [id number] [place] [address] 51101- 7714 Nov, Back pain M54.9 and Pain in right knee M25.561 [facility] [id number] [place] [address] 32391- 7631 Nov, [facility] [id number] [place] [address] 68020- 2506 Nov, Chronic pain G89.29 [facility] [id number] [place] [address] 84679- 4480 Nov, Chronic pain G89.29 ; Weight loss R63.4 ; Bone pain M89.8X9 and Insomnia, unspecified type G47.00 [facility] [id number] [place] [address] 89063- 4998 Nov, Chronic pain G89.29 [facility] [id number] [place] [address] 65550 2546 Nov, Chronic pain G89.29 [facility] [id number] [place] [address] 79680- 4142 Oct, Chronic pain G89.29 [facility] [id number] [place] [address] 62501- 1482 Oct, UTI symptoms R39.9 [facility] [id number] [place] [address] 44051- 8101 Oct, Chronic pain G89.29 [facility] [id number] [place] [address] 69132- 8348 Oct, Chronic pain G89.29 [facility] [id number] [place] [address] 23695- 9159 Oct, Chronic pain G89.29 [facility] [id number] [place] [address] 08694- 1014 Oct, Right upper quadrant abdominal pain R10.11 [facility] [id number] [place] [address] 70892- 9475 Oct, Chronic pain G89.29 [facility] [id number] [place] [address] 43436 2549 Oct, [facility] [id number] [place] [address] 34057- 4254 September, Chronic pain G89.29 [facility] [id number] [place] [address] 02898- 1569 September, Dysuria R30.0 and Urinary tract infection without hematuria , site unspecified N39.0 [facility] [id number] [address] September, [facility] [id number] [place] [address] 85757- 1977 September, Dysuria R30.0 [facility] [id number] [address] September, Chronic pain G89.29 [facility] [id number] [place] [address] 76661 2541 September, Chronic pain G89.29 and Essential hypertension I10 [facility] [id number] [place] [address] 97498- 7929 September, [facility] [id number] [place] [address] 07116- 5308 September, [facility] [id number] [place] [address] 75885- 0291 September, [facility] [id number] [place] [address] 69137- 5135 Aug, UTI symptoms R39.9 [facility] [id number] [place] [address], [place] [address]- [address] Aug, Dysuria R30.0 [facility] [id number] [place] [address] 95980- 1114 Aug, [facility] [id number] [place] [address] 54229- 5475 Aug, [facility] [id number] [address] Aug, [facility] [id number] [place] [address] 12970- 2541 Aug, Chronic pain G89.29 [facility] [id number] [place] [address] 6566 Aug, Dysthymia F34.1 [facility] [id number] [address] Aug, Conjunctivitis, unspecified conjunctivitis type, unspecified laterality H10.9 [facility] [id number] [address] 31 Jul, 2015 Chronic pain G89.29 ; Back pain M54.9 ; Tobacco abuse Z72.0 and Weight decrease R63.4 [facility] [id number] [place] [address] 07136- 9910 30 Jul, 2015 [facility] [id number] [place] [address] 57068- 4298 30 Jul, 2015 [facility] [id number] [place] [address] 37197- 8140 24 Jul, 2015 Chronic pain G89.29 [facility] [facility] [id number] [address] 22 Jul, 2015 [facility] [address] [address] 1073 21 Jul, 2015 [facility] [address] [address] 0392 18 Jul, 2015 [facility] [address] [address] 4190 17 Jul, 2015 [facility] [address], [place] [address] 9212 17 Jul, 2015 Chronic pain G89.29 [facility] [address] [address] 9875 16 Jul, 2015 Chronic pain G89.29 [facility] [id number] [place] [address] 5509 15 Jul, 2015 [facility] [id number] [address] 8373 10 Jul, 2015 [facility] [address] [address] 1181 Jul, [facility] [id number] [place] [address] 35897- 6091 Jul, [facility] [address] [address]- 8660 Jun, [facility] [id number] [place] [address] 68681- 1636 Jun, Depression, unspecified depression type F32.9 [facility] [address] [address]- 4709 Jun, Pain in right knee M25.561 [place] [address] [address]- 8413 Jun, Chronic pain G89.29 ; Back pain M54.9 ; Bone pain M89.8X9 and Weight loss R63.4 [place] [address] [address]- 4344 Jun, [facility] [id number] [place] [address] 86310- 1007 May, [facility] [id number] [place] [address] 84217- 1932 May, UTI symptoms R39.9 ; Pain in right knee M25.561 ; Right low back pain, with sciatica presence unspecified M54.5 ; Right foot pain M79.671 ; Hypokalemia E87.6 and Screening, lipid Z13.220 [facility] [id number] [place] [address] 34790- 4165 May, [place] [address] [address]84[address]- 8642 May, [facility] [id number] [place] [address] 83457- 2965 Mar, [facility] [id number] [place] [address] 25161- 1933 Mar, [facility] [id number] [place] [address] 23258- 0605 Mar, Hypokalemia E87.6 [facility] [id number] [place] [address] 49306- 9221 Mar, Pain in right leg M79.604 ; Encounter for immunization Z23 ; Pain in right knee M25.561 and Hypokalemia E87.6 [facility] [id number] [place] [address] 97410- 2426 Jan, [facility] [id number] [place] [address] 69202- 3406 Jan, [facility] [id number] [place] [address] 69151- 3259 Jan, Abdominal pain, generalized 789.07 [facility] [id number] [place] [address] 64036- 4576 Jan, Abdominal pain, generalized 789.07 [facility] [id number] [place] [address] 42501- 0915 Dec, [facility] [id number] [place] [address] 55488- 5103 Dec, [facility] [id number] [place] [address] 43272- 4730 Dec, [facility] [id number] [place] [address] 50081- 7315 Nov, Hallux valgus 735.0 and Hammertoe 735.4 [facility] [id number] [place] [address] 75802- 5406 Nov, [facility] [id number] [place] [address] 35947- 1896 Nov, Hallux valgus 735.0 and Hammer toe 735.4 [facility] [id number] [place] [address] 88448- 7161 Oct, [facility] [address] [facility] [id number] [address]- 4597 Oct, [facility] [address] [address]- 4194 Oct, Pre-op evaluation V72.84 [facility] [address] [address]- 7940 Oct, [facility] [id number] [place] [address] 82235- 9763 Oct, [facility] [address], [place] [address]- 9319 September, [facility] [id number] [place] [address] 45339- 6292 September, [facility] [address] [address]- 3206 September, Hallux valgus (acquired) 735.0 and Other hammer toe ( acquired) 735.4 [facility] [address] [address]- 4877 Aug, [facility] [address] [address]- 5214 Aug, [facility] [address] [address]- 8243 Jul, [facility] [id number] [address]- 7385 Jul, [facility] [id number] [address]- 9730 Jul, [facility] [address] [facility] [id number] [address]- 5496 Jul, [facility] [address] [facility] [id number] [address]- 4891 Jul, [facility] [address] [address]- 3316 Jul, [facility] [place] [facility] [address] [id number] [place] [address]- 3843 Jul, [facility] [place] [facility] [address] [id number] [place] [address]- 7568 Jul, [facility] [place] [facility] [address] [facility] [id number] [place] [address]- 9547 Jun, 2014 [facility] [place] [facility] [address] [id number] [place] [address]- 7300 Jun, 2014 [facility] [place] [facility] [address] [id number] [place] [address]- 0832 Jun, 2014 [facility] [place] [facility] [address] [id number] [place] [address]- 8976 Jun, 2014 [facility] [place] [facility] [address] [facility] [id number] [place] [address]- 8791 Jun, 2014 [facility] [place] [facility] [address] [id number] [place] [address]- 0039 Jun, [facility] [place] [facility] [address] [id number] [place] [address]- 4648 Jun, 2014 [facility] [place] [facility] [address] [facility] [id number] [place] [address]- 0934 Jun, [facility] [place] [facility] [address] [facility] [id number] [place] [address]- 1915 Jun, [facility] [place] [facility] [address] [facility] [id number] [place] [address]- 6587 Jun, [facility] [place] [facility] [address] [id number] [place] [address]- 9552 May, [facility] [place] [facility] [address] [facility] [id number] [id number] 4981 May, [facility] [place] [facility] [address] [id number] [place] [address]- 6165 May, [facility] [place] [facility] [address] [id number] [place] [address]- 4530 May, [facility] [place] [facility] [address] [id number] [place] [address]- 5704 May, [facility] [place] [facility] [address] [id number] [place] [address]- 3595 May, [facility] [place] [facility] [address] [id number] [place] [address]- 9842 May, [facility] [address] [id number] [place] [address]- 9326 May, [facility] [place] [facility] [address] [id number] [place] [address]- 0803 May, [facility] [place] [facility] [address] [id number] [place] [address]- 4307 May, [facility] [address] [id number] [place] [address]- 2653 May, [facility] [place] [facility] [address] [id number] [place] [address]- 7711 May, [facility] [place] [facility] [address] [id number] [place] [address]- 4532 May, [facility] [place] [facility] [address] [id number] [place] [address]- 3223 May, [facility] [place] [facility] [address] [id number] [place] [address]- 2400 May, [facility] [place] [facility] [address] [id number] [place] [address]- 1664 May, [facility] [place] [facility] [address] [id number] [place] [address]- 2665 May, [facility] [place] [facility] [address] [id number] [place] [address]- 1495 May, [facility] [place] [facility] [address] [id number] [place] [address]- 3541 Apr, [facility] [place] [facility] [address] [id number] [place] [address]- 0994 Apr, [facility] [place] [facility] [address] [id number] [place] 6604 Apr, [facility] [place] [facility] [address] [id number] [place] [address]- 0072 Apr, [facility] [place] [facility] [address] [id number] [place] [address]- 4105 Apr, [facility] [place] [facility] [address] [id number] [place] [address]- 2731 Apr, [facility] [place] [facility] [address] [id number] [place] [address]- 0822 Apr, [facility] [place] [facility] [address] [id number] [place] [address]- 7736 Apr, [facility] [place] [facility] [address] [id number] [place] [address]- 5413 Apr, [facility] [place] [facility] [address] [id number] [place] [address]- 8748 Mar, [facility] [place] [facility] [address] [id number] [place] [address]- 1418 Mar, [facility] [place] [facility] [address] [id number], [place] [address]- 2156 Mar, [facility] [place] [facility] [address] [id number], [place] [address]- 6713 Mar, [facility] [place] [facility] [address] [id number] [place] [address]- 4023 Mar, [facility] [place] [facility] [address] [id number] [place] [address]- 0665 Feb, [facility] [place] [facility] [address] [id number] [place] [address]- 3575 Feb, [facility] [place] [facility] [address] [id number] [place] [address]- 3669 Feb, 2013 [facility] [place] [facility] [address] [id number] [place] [address]- 5596 Feb, 2013 [facility] [place] [facility] [address] [id number] [place] 4318 Feb, 2013 [facility] [place] [facility] [address] [id number] [place] [address]- 2556 Feb, 2013 [facility] [place] [facility] [address] [id number] [place] [address]- 2282 Feb, 2013 [facility] [place] [facility] [address] [id number] [place] [address]- 4576 Feb, 2013 [facility] [place] [facility] [address] [id number] [place] [address]- 2201 Feb, 2013 [facility] [place] [facility] [address] [id number] [place] [address]- 6525 Feb, 2013 [facility] [place] [facility] [address] [id number] [place] [address]- 3230 Feb, 2013 [facility] [place] [facility] [address] [id number] [place] [address]- 1564 Feb, 2013 [facility] [place] [facility] [address] [id number] [place] [address]- 8398 Feb, 2013 [facility] [place] [facility] [address] [id number] [place] [address]- 3761 Feb, 2013 [facility] [place] [facility] [address] [id number] [place] [address]- 9441 Feb, 2013 [facility] [place] [facility] [address] [id number] [place] [address]- 3252 Feb, 2013 [facility] [place] [facility] [address] [id number] [place] [address]- 1965 Jan, 2013 [facility] [place] [facility] [address] [id number] [place] [address]- 8998 23 Jan, 2013 [facility] [place] [facility] [address] [id number] [place] [address]- 9659 20 Jan, 2013 [facility] [place] [facility] [address] [id number] [place] [address]- 4811 19 Jan, 2013 [facility] [place] [facility] [address] [id number] [place] [address]- 9116 Jan, 2013 [facility] [place] [facility] [address] [id number] [place] [address]- 5458 Jan, 2013 [facility] [place] [facility] [address] [id number] [place] [address]- 1011 Jan, [facility] [place] [facility] [address] [id number] [place] [address]- 7173 Jan, [facility] [place] [facility] [address] [id number] [place] [address]- 8795 Dec, [facility] [place] [facility] [address] [id number] [place] [address]- 6174 Dec, [facility] [place] [facility] [address] [id number] [place] [address]- 4636 Nov, [facility] [place] [facility] [address] [id number] [place] [address]- 7558 Nov, [facility] [place] [facility] [address] [id number] [place] [address]- 3130 Nov, [facility] [place] [facility] [address] [id number] [place] [address]- 4565 Nov, [facility] [place] [facility] [address] [id number] [place] [address]- 5835 Nov, [facility] [place] [facility] [address] [id number] [place] [address]- 0460 Nov, [facility] [place] [facility] [address] [id number] [place] 7665 Nov, [facility] [place] [facility] [address] [id number] [place] [address]- 0791 Nov, [facility] [place] [facility] [address] [id number] [place] 2369 Nov, [facility] [place] [facility] [address] [id number] [place] 8457 Oct, [facility] [place] [facility] [address] [id number] [place] [address]- 3202 Oct, [facility] [place] [facility] [address] [id number] [place] [address]- 6445 Oct, [facility] [place] [facility] [address] [id number] [place] [address]- 9257 Oct, [facility] [place] [facility] [address] [id number] [place] [address]- 0384 Oct, [facility] [place] [facility] [address] [id number] [place] [address]- 3568 Oct, [facility] [place] [facility] [address] [id number] [place] [address]- 1162 September, [facility] [place] [facility] [address] [id number] [place] [address]- 8205 September, [facility] [place] [facility] [address] [id number] [place] [address]- 9520 September, [facility] [place] [facility] [address] [id number] [place] [address]- 1647 September, [facility] [place] [facility] [address] [id number] [place] [address]- 0797 September, [facility] [place] [facility] [address] [id number] [place] [address]- 2093 September, [facility] [place] [facility] [address] [id number] [place] [address]- 9767 September, [facility] [place] [facility] [address] [id number] [place] [address]- 6415 September, [facility] [place] [facility] [address] [id number] [place] [address]- 4569 September, [facility] [place] [facility] [address] [id number] [place] [address]- 7367 September, [facility] [place] [facility] [address] [id number] [place] [address]- 9202 September, [facility] [place] [facility] [address] [id number] [place] [address]- 5187 September, [facility] [place] [facility] [address] [id number] [place] [address]- 4409 September, [facility] [place] [facility] [address] [id number] [place] [address]- 0070 September, [facility] [place] [facility] [address] [id number] [place] [address]- 4019 September, [facility] [place] [facility] [address] [id number] [place] [address]- 1469 September, [facility] [place] [facility] [address] [id number] [place] [address]- 2713 September, [facility] [place] [facility] [address] [id number] [place] [address]- 0177 September, [facility] [place] [facility] [address] [id number] [place] [address]- 4689 September, [facility] [place] [facility] [address] [id number] [place] [address]- 9699 September, [facility] [place] [facility] [address] [id number] [place] [address]- 1706 Aug, [facility] [place] [facility] [address] [id number] [place] [address]- 4296 Aug, [facility] [place] [facility] [address] [id number] [place] [address]- 0001 Aug, [facility] [place] [facility] [address] [id number] [place] [address]- 0411 Aug, 2013 [facility] [place] [facility] [address] [id number] [place] [address]- 7931 18 Aug, 2013 [facility] [place] [facility] [address] [id number] [place] [address]- 3212 18 Aug, 2013 [facility] [place] [facility] [address] [id number] [place] [address]- 5988 16 Aug, 2013 [facility] [place] [facility] [address] [id number] [place] [address]- 3069 16 Aug, 2013 [facility] [place] [facility] [address] [id number] [place] [address]- 0404 15 Aug, 2013 [facility] [place] [facility] [address] [id number] [place] [address]- 3785 15 Aug, 2013 [facility] [place] [facility] [address] [id number] [place] [address]- 2415 14 Aug, 2013 [facility] [place] [facility] [address] [id number] [place] [address]- 8947 Aug, [facility] [place] [facility] [address] [id number] [place] [address]- 3600 Aug, [facility] [place] [facility] [address] [id number] [place] [address]- 8640 Aug, [facility] [place] [facility] [address] [id number] [place] [address]- 3807 Aug, [facility] [place] [facility] [address] [id number], [place] [address]- 5516 Jul, [facility] [place] [facility] [address] [id number] [place] [address]- 1330 Jul, [facility] [place] [facility] [address] [id number] [place] [address]- 9201 Jul, [facility] [place] [facility] [address] [id number] [place] [address]- 3079 Jul, [facility] [place] [facility] [address] [id number] [place] [address]- 1485 20 Jul, 2013 [facility] [place] [facility] [address] [id number] [place] [address]- 1853 20 Jul, 2013 [facility] [place] [facility] [address] [id number] [place] [address]- 3820 18 Jul, 2013 [facility] [place] [facility] [address] [id number] [place] [address]- 8237 18 Jul, 2013 [facility] [place] [facility] [address] [id number] [place] [address]- 7448 Jul, [facility] [place] [facility] [address] [id number] [place] [address]- 1671 Jul, [facility] [place] [facility] [address] [id number] [place] [address]- 7754 Jul, [facility] [place] [facility] [address] [id number] [place] [address]- 1589 04 Jul, 2013 [facility] [place] [facility] [address] [id number] [place] [address]- 8547 Jul, [facility] [place] [facility] [address] [id number] [place] [address]- 4634 Jul, [facility] [place] [facility] [address] [facility] [id number] [place] [address]- 7328 Jul, [facility] [place] [facility] [address] [id number] [place] [address] 18 Jun, 2013 [facility] [place] [facility] [address] [id number] [place] [address] 18 Jun, 2013 [facility] [place] [facility] [address] [id number] [place] [address] 13 Jun, 2013 [facility] [place] [facility] [address] [id number] [place] [address] 13 Jun, 2013 [facility] [place] [facility] [address] [id number] [place] [address] Jun, [facility] [place] [facility] [address] [id number] [place] [address] Jun, [facility] [place] [facility] [address] [id number] [place] [address] May, [facility] [place] [facility] [address] [id number] [place] [address] May, [facility] [place] [facility] [address] [id number] [place] [address] May, [facility] [place] [facility] [address] [id number] [place] [address] May, [facility] [place] [facility] [address] [id number] [place] [address] May, [facility] [place] [facility] [address] [id number] [place] [address] May, [facility] [place] [facility] [address] [id number] [place] [address] May, [facility] [place] [facility] [address] [id number] [place] [address] May, [facility] [place] [facility] [address] [id number] [place] [address] May, [facility] [place] [facility] [address] [id number] [address] May, [facility] [place] [facility] [address] [id number], [place] [address] May, [facility] [place] [facility] [address] [id number] [place] [address] May, [facility] [place] [facility] [address] [id number] [place] [address] May, [facility] [place] [facility] [address] [id number] [place] [address] May, [facility] [place] [facility] [address] [id number] [place] [address] May, [facility] [address] [id number] [place] [address] Apr, [facility] [place] [facility] [address] [id number] [place] [address] Apr, [facility] [address] [id number] [place] [address] Apr, [facility] [place] [facility] [address] [id number] [place] [address] Apr, [facility] [address] [id number] [place] [address] Apr, [facility] [address] [id number] [place] [address]- [address] Apr, [facility] [address] [id number] [place] [address] Apr, [facility] [address] [id number] [place] [address]67 Apr, [facility] [address] [id number] [place] [address] Apr, [facility] [address] [id number] [place] [address] Apr, [facility] [address] [id number] [place] [address] Mar, [facility] [place] [facility] [address] [id number] [place] [address] Mar, [facility] [place] [facility] [address] [id number] [place] [address] Mar, [facility] [place] [facility] [address] [id number] [place] [address] Mar, [facility] [place] [facility] [address] [id number] [place] [address] Mar, [facility] [place] [facility] [address] [id number] [place] [address] Mar, [facility] [place] [facility] [address] [id number] [place] [address]27 Mar, [facility] [place] [facility] [address] [id number] [place] [address] Mar, [facility] [place] [facility] [address] [id number] [place] [address] Mar, [facility] [place] [facility] [address] [id number] [place] [address] Mar, [facility] [place] [facility] [address] [id number] [place] [address] Mar, [facility] [place] [facility] [address] [id number] [place] [address] Mar, [facility] [place] [facility] [address] [id number] [place] [address] Mar, [facility] [place] [facility] [address] [id number] [place] [address]- [address] Mar, [facility] [place] [facility] [address] [id number] [place] [address] Mar, [facility] [place] [facility] [address] [id number] [place] [address] 58[address] 18 Mar, 2013 [facility] [place] [facility] [address] [id number] [place] [address]- [address] 14 Mar, 2013 [facility] [place] [facility] [address] [id number] [place] [address]- [address] 14 Mar, 2013 [facility] [place] [facility] [address] [id number] [place] [address]- [address]757 Mar, [facility] [place] [facility] [address] [id number] [place] [address]- 2514 Mar, [facility] [place] [facility] [address] [id number], [place] [address] Mar, [facility] [place] [facility] [address] [id number] [place] [address]- [address] Mar, [facility] [place] [facility] [address] [id number] [place] [address]- [address] Mar, [facility] [place] [facility] [address] [id number] [place] [address]- 67[address] Feb, [facility] [place] [facility] [address] [id number] [place] [address]- [address] Feb, [facility] [place] [facility] [address] [id number] [place] [address] Feb, [facility] [place] [facility] [address] [id number] [place] [address] 16 Feb, 2013 [facility] [place] [facility] [address] [id number] [place] [address] 15 Feb, 2013 [facility] [place] [facility] [address] [id number] [address] Feb, [facility] [place] [facility] [address] [id number] [place] [address] Feb, [facility] [place] [facility] [address] [id number], [place] [address] Feb, [facility] [place] [facility] [address] [id number], [place] [address] Feb, [facility] [place] [facility] [address] [id number], [place] [address] Feb, [facility] [place] [facility] [address] [id number] [place] [address] 1504 30 Jan, 2013 [facility] [place] [facility] [address] [id number], [place] [address]83 26 Jan, 2013 [facility] [place] [facility] [address] [id number] [place] [address] 6070 24 Jan, 2013 [facility] [place] [facility] [address] [id number] [place] [address]- 2608 Jan, [facility] [address] [id number] [place] [address] 9871 Jan, [facility] [address] [id number] [place] [address] 5886 Dec, [facility] [address] [id number] [place] [address]- 3867 Dec, [facility] [address] [id number] [place] [address]- 7945 Dec, [facility] [address] [id number] [place] [address]- 3855 Dec, [facility] [address] [id number] [place] [address]- 1051 Dec, [facility] [address] [id number] [place] [address]- 1745 Dec, [facility] [address] [id number] [place] [address]- 5373 Dec, [facility] [address] [id number] [place] [address] 3000 Nov, [facility] [address] [id number] [place] [address]- 5134 Nov, [facility] [place] [facility] [address] [id number] [place] [address]- 7015 Nov, [facility] [address] [id number] [place] [address]- 0740 Nov, [facility] [place] [facility] [address] [id number] [place] [address]- 3949 Nov, [facility] [place] [facility] [address] [id number] [place] [address]- 5107 Oct, [facility] [place] [facility] [address] [id number] [place] [address]- 1623 Oct, [facility] [address] [id number] [place] [address]- 2824 Oct, [facility] [address] [id number] [place] [address]- 1306 September, [facility] [address] [id number] [place] [address]- 8586 September, [facility] [address] [id number] [place] [address]- 6666 September, [facility] [address] [id number] [place] [address]- 8090 September, [facility] [address] [id number] [place] [address]- 0766 September, [facility] [address] [id number] [place] [address]- 5715 September, [facility] [address] [id number] [place] [address]- 4966 September, [facility] [address] [id number] [place] [address]- 9197 Aug, [facility] [address] [id number] [place] [address]- 1272 Aug, [facility] [place] [facility] [address] [id number] [place] [address]- 1536 Aug, [facility] [place] [facility] [address] [id number] [place] [address]- 8711 29 Jul, 2012 [facility] [place] [facility] [address] [id number] [place] [address]- 0376 Jul, [facility] [place] [facility] [address] [id number] [place] [address]- 4896 Jul, [facility] [place] [facility] [address] [id number] [place] [address]- 4092 Jul, [facility] [place] [facility] [address] [id number] [place] [address]- 9993 18 Jul, 2012 [facility] [address] [id number] [place] [address] 2546 18 Jul, 2012 [facility] [address] [id number] [place] [address] 2546 Jul, [facility] [address] [id number] [place] [address]- 6066 28 Jun, 2012 [facility] [address] [id number] [place] [address] 2540 27 Jun, 2012 [facility] [address] [id number] [place] [address]- 3076 Jun, [facility] [address] [id number] [place] [address]- 2546 Jun, [facility] [address] [id number] [place] [address]- 5965 15 Jun, 2012 [facility] [address] [id number] [place] [address]- 2545 15 Jun, 2012 [facility] [address] [id number] [place] [address]- 1625 Jun, [facility] [address] [id number] [place] [address]- 4744 Jun, [facility] [address] [id number] [place] [address] 2546 Jun, [facility] [address] [id number] [place] [address] 2540 Jun, [facility] [place] [facility] [address] [id number] [place] [address]- 7567 May, [facility] [place] [facility] [address] [id number] [place] [address] 2546 May, [facility] [place] [facility] [address] [id number] [place] [address]- 5364 May, [facility] [place] [facility] [address] [id number] [place] [address]- 2242 17 May, 2012 [facility] [place] [facility] [address] [id number] [place] [address]- 6543 15 May, 2012 [facility] [place] [facility] [address] [id number] [place] [address]- 3457 07 May, 2012 [facility] [place] [facility] [address] [id number] [place] [address]- 0287 31 Apr, 2012 [facility] [place] [facility] [address] [id number] [place] [address]- 4512 31 Apr, 2012 [facility] [place] [facility] [address] [id number] [place] [address]- 9144 Apr, [facility] [place] [facility] [address] [id number] [place] [address]- 4506 Apr, [facility] [place] [facility] [address] [id number] [place] [address]- 6551 Apr, [facility] [place] [facility] [address] [id number] [place] [address]- 9573 Apr, [facility] [place] [facility] [address] [id number] [place] [address]- 6179 Apr, [facility] [place] [facility] [address] [id number] [place] [address]- 1354 Mar, [facility] [place] [facility] [address] [id number] [place] [address]- 8369 29 Mar, 2012 [facility] [place] [facility] [address] [id number] [place] [address]- 7686 Mar, [facility] [place] [facility] [address] [id number] [place] [address]- 8899 Mar, [facility] [place] [facility] [address] [id number] [place] [address]186 Mar, [facility] [place] [facility] [address] [id number] [place] [address]- 2844 Mar, [facility] [place] [facility] [address] [id number] [place] [address]- 6548 18 Mar, 2012 [facility] [place] [facility] [address] [id number] [place] [address]- 8900 Mar, [facility] [place] [facility] [address] [id number] [place] [address]- 1156 Mar, [facility] [place] [facility] [address] [id number] [place] [address]- 7573 Mar, [facility] [place] [facility] [address] [id number] [place] [address]- 7770 Mar, [facility] [place] [facility] [address] [id number] [place] [address]- 0493 Mar, [facility] [place] [facility] [address] [facility] [id number], [place] [address]- 5074 Mar, [facility] [place] [facility] [address] [id number], [place] [address]- 7525 Mar, [facility] [place] [facility] [address] [id number] [place] [address]- 1145 Mar, [facility] [place] [facility] [address] [facility] [id number] [place] [address]- 3752 Mar, [facility] [place] [facility] [address] [id number], [place] [address]- 4207 Mar, [facility] [place] [facility] [address] [id number], [place] [address]- 7429 Feb, [facility] [place] [facility] [address] [id number], [place] [address]- 6732 Feb, [facility] [place] [facility] [address] [facility] [id number], [place] [address]- 0709 Feb, [facility] [place] [facility] [address] [facility] [id number], [place] [address]- 3955 Feb, [facility] [place] [facility] [address] [id number] [place] [address]- 7850 16 Feb, 2012 [facility] [place] [facility] [address] [id number] [place] [address]- 5176 16 Feb, 2012 [facility] [place] [facility] [address] [id number] [place] [address]- 1766 Feb, [facility] [place] [facility] [address] [id number] [place] [address]- 0956 Feb, [facility] [place] [facility] [address] [id number] [place] [address]- 1859 05 Feb, 2012 [facility] [place] [facility] [address] [id number] [place] [address]- 7278 04 Feb, 2012 [facility] [place] [facility] [address] [id number] [place] [address]- 7240 02 Feb, 2012 [facility] [place] [facility] [address] [id number] [place] [address]- 1071 27 Jan, 2012 [facility] [place] [facility] [address] [id number] [place] [address]- 0015 25 Jan, 2012 [facility] [place] [facility] [address] [id number] [place] [address]- 2921 13 Jan, 2012 [facility] [place] [facility] [address] [id number] [place] [address]- 5044 12 Jan, 2012 [facility] [place] [facility] [address] [id number] [place] [address]- 2542 07 Jan, 2012 [facility] [place] [facility] [address] [id number] [place] [address]- 0400 31 Dec, 2011 [facility] [place] [facility] [address] [id number] [place] [address] 2546 24 Dec, 2011 [facility] [place] [facility] [address] [id number] [place] [address]- 7619 22 Dec, 2011 [facility] [place] [facility] [address] [id number] [place] [address]- 4762 Dec, [facility] [place] [facility] [address] [id number] [place] [address]- 7771 Dec, [facility] [place] [facility] [address] [id number] [place] [address]- 6666 Dec, [facility] [place] [facility] [address] [id number] [place] [address]- 7093 Dec, [facility] [place] [facility] [address] [id number] [place] [address]- 9849 Dec, [facility] [place] [facility] [address] [id number] [place] [address]- 8578 Nov, [facility] [place] [facility] [address] [id number] [place] [address]- 6368 Nov, [facility] [place] [facility] [address] [id number] [place] [address]- 8764 Nov, [facility] [place] [facility] [address] [id number] [place] [address]- 1459 Nov, [facility] [place] [facility] [address] [id number] [place] [address]- 1530 Nov, [facility] [place] [facility] [address] [id number] [place] [address]- 9731 Oct, [facility] [place] [facility] [address] [id number] [place] [address]- 4832 Oct, [facility] [place] [facility] [address] [id number] [place] [address]- 4779 September, [facility] [place] [facility] [address] [id number] [place] [address]- 5004 September, [facility] [place] [facility] [address] [id number] [place] [address]- 9451 September, [facility] [place] [facility] [address] [id number] [place] [address]- 1641 September, [facility] [place] [facility] [address] [id number] [place] [address]- 8105 September, [facility] [address] [id number] [place] [address]- 0985 September, [facility] [address] [id number] [place] [address]- 2706 September, [facility] [address] [id number] [place] [address]- 1895 September, [facility] [address] [id number] [place] [address]- 9252 September, [facility] [address] [id number] [place] [address]- 6239 September, [facility] [address] [id number] [place] [address]- 5627 September, [facility] [address] [id number] [place] [address]- 7578 September, [facility] [address] [id number] [place] [address]- 9262 September, [facility] [address] [id number] [place] [address]- 3828 September, [facility] [address] [id number] [place] [address]- 1194 Aug, [facility] [address] [id number] [place] [address]- 5868 Aug, [facility] [address] [id number] [place] [address]- 1572 Aug, [facility] [place] [facility] [address] [id number] [place] [address]- 3482 Aug, [facility] [place] [facility] [address] [id number] [place] [address]- 0041 Jul, [facility] [address] [id number] [place] [address]- 6024 Jul, [facility] [place] [facility] [address] [id number] [place] [address]- 3327 13 Jul, 2011 [facility] [address] [id number] [place] [address]- 6285 28 Jun, 2011 [facility] [address] [facility] [id number] [place] [id number] Jun, [facility] [place] [facility] [address] [id number] [place] [address]- 7826 13 Jun, 2011 [facility] [address] [id number] [place] [address]- 7664 Jun, [facility] [place] [facility] [address] [id number] [place] [address]- 7736 07 Jun, 2011 [facility] [address] [id number] [place] [address]- 1515 Jun, [facility] [address] [id number] [place] [address]- 4308 03 Jun, 2011 [facility] [address] [id number] [place] [address]- 1607 Jun, [facility] [address] [id number] [place] [address]- 9382 May, [facility] [place] [facility] [address] [id number] [place] [address]- 8064 May, [facility] [place] [facility] [address] [id number], [place] [address]- 5807 May, [facility] [place] [facility] [address] [id number] [place] [address]- 8536 May, [facility] [place] [facility] [address] [id number] [place] [address]- 8506 May, [facility] [place] [facility] [address] [id number] [place] [address]- 5210 May, [facility] [place] [facility] [address] [id number], [place] [address]- 1221 May, [facility] [address] [id number] [place] [address]- 0309 May, [facility] [place] [facility] [address] [facility] [id number], [place] [address]- 8132 May, [facility] [place] [facility] [address] [facility] [id number] [place] [address]- 4271 May, [facility] [place] [facility] [address] [id number] [place] [address]- 7695 May, [facility] [address] [facility] [id number] [place] [address], [place] [address]- 5480 May, [facility] [place] [facility] [address] [facility] [id number] [place] [address]- 4887 May, [facility] [id number] [address]- 5280 May, [facility] [place] [facility] [address] [facility] [id number] [place] [address]- 6763 Apr, [facility] [place] [facility] [address] [id number] [place] [address]- 6361 Apr, [facility] [place] [facility] [address] [id number] [place] [address]- 0980 Apr, [facility] [place] [facility] [address] [facility] [id number], [place] [address]- 3202 Mar, [facility] [place] [facility] [address] [facility] [id number], [place] [address]- 2278 Mar, [facility] [place] [facility] [address] [facility] [id number], [place] [address]- 1023 Feb, [facility] [place] [facility] [address] [facility] [id number] [place] [address]- 1030 Feb, [facility] [place] [facility] [address] [id number] [address]- 2643 Feb, [facility] [place] [facility] [address] [id number] [place] [address]- 1163 20 Feb, 2011 [facility] [place] [facility] [address] [id number] [place] [address]- 8806 13 Feb, 2011 [facility] [place] [facility] [address] [id number] [place] [address]- 3756 28 Apr, 2010 [facility] [place] [facility] [address] [id number] [place] [address] 2546 22 Apr, 2010 [facility] [place] [facility] [address] [id number] [place] [address] 2546 16 Apr, 2010 [facility] [place] [facility] [address] [id number] [place] [address]- 8006 15 Apr, 2010 [facility] [place] [facility] [address] [id number] [place] [address]- 1108 15 Apr, 2010 [facility] [place] [facility] [address] [id number] [place] [address]- 6041 Apr, [facility] [place] [facility] [address] [id number] [place] [address]- 5031 24 Mar, 2010 [facility] [place] [facility] [address] [id number] [place] [address]- 3966 17 Mar, 2010 [facility] [place] [facility] [address] [id number] [place] [address]- 9809 17 Mar, 2010 [facility] [place] [facility] [address] [id number] [place] [address]- 4982 28 Feb, 2010 [facility] [place] [facility] [address] [id number] [place] [address] 2548 Feb, [facility] [place] [facility] [address] [id number] [place] [address] 2546 21 Feb, 2010 [facility] [place] [facility] [address] [id number] [place] [address]- 2546 15 Feb, 2010 [facility] [place] [facility] [address] [id number] [place] [address]- 7190 Dec, [facility] [address] [facility] [id number] [address]- 4726 Dec, [facility] [address] [facility] [id number], [place] [address]- 2026 Oct, [facility] [address] [facility] [id number], [place] [address]- 0566 Mar, [facility] [address] [id number] [address]- 2546 Mar, [facility] [address] [facility] [id number], [place] [address]- 6003 September, IMMUNIZATIONS No Known Immunizations SOCIAL HISTORY Never Assessed REASON FOR VISIT Order Request PLAN OF CARE VITAL SIGNS MEDICATIONS Medication Instructions Dosage Frequency Start Date End Date Duration Status Pantoprazole Sodium 40 MG Orally Once a day 1 tablet 24h Jun, 30 days Active RESULTS No Results PROCEDURES No [...]
--- OUTSIDE RECORDS SUMMARY | 2017-11-27 15:33 | XMS REPORT ---
Author Author VALERIE ZAVALA [facility] Address [address] [place] [address] Care Team Providers Care Tool Marker Name Role Phone VALERIE ZAVALA Unavailable PROBLEMS Type Condition ICD9-CM Code YHD19-QP Code Onset Dates Condition Status SNOMED Code Problem Generalized anxiety disorder F41.1 Active 20256150 Problem Hypokalemia E87.6 Active 692667673 Problem Right low back pain, with sciatica presence unspecified M54.5 Active 247568772 Problem Post-traumatic stress disorder, chronic F43.12 Active 94839762 Problem Pain in right knee M25.561 Active 50259635 Problem Gastroesophageal reflux disease without esophagitis K21.9 Active 609537901 Problem UTI symptoms R39.9 Active 22439457 Problem Essential hypertension I10 Active 14312448 Problem Anxiety F41.9 Active 58328425 Problem Neuropathy G62.9 Active 316205557 Problem Other chronic pain G89.29 Active 25100490 Problem Generalized abdominal pain R10.84 Active 517564596 Problem Chronic pain G89.29 Active 78932662 Problem Back pain M54.9 Active 183576254 Problem Right foot pain M79.671 Active 52490848 Problem Panic attacks F41.0 Active 584236151 Problem Other emphysema J43.8 Active 55355663 Problem Kidney stones N20.0 Active 19692317 Problem Renal calculus, right N20.0 Active 34529541 Problem Weight decrease R63.4 Active 349627513 Problem Tobacco abuse Z72.0 Active 61415548 Problem Bone pain M89.8X9 Active 93531876 Problem Depression, unspecified depression type F32.9 Active 05562350 Problem Insomnia, unspecified type G47.00 Active 082279034 Problem Pulmonary emphysema, unspecified emphysema type J43.9 Active 99075547 Problem Right upper quadrant abdominal pain R10.11 Active 789681632 Problem Weight loss R63.4 Active 703393586 ALLERGIES No Information ENCOUNTERS Encounter Location Date Diagnosis [facility] [address], [place] [address] Nov, [facility] [id number] [place] [address] 78831- 6336 Oct, Medicare welcome exam Z00.00 [facility] [id number] [place] [address] 00560- 4947 September, Back pain M54.9 and Right anterior knee pain M25.561 [facility] [id number] [place] [address] 65281- 2678 September, [facility] [id number] [place] [address] 13487- 7691 September, [facility] [id number] [place] [address] 63157- 7642 September, Essential hypertension I10 [facility] [id number] [place] [address] 61116- 3680 September, [facility] [id number] [place] [address] 88172- 8335 September, RLQ abdominal pain R10.31 ; Low back pain M54.5 and Other chronic pain G89.29 [facility] [id number] [place] [address] 27299- 6313 Aug, Medicare welcome exam Z00.00 [facility] [id number] [place] [address] 56901- 5752 Aug, [facility] [id number] [place] [address] 25627- 4742 Aug, Acute pyelonephritis N10 and Medicare welcome exam Z00.00 [facility] [address] [address] Aug, Dysuria R30.0 and Acute pyelonephritis N10 [facility] [id number] [address]- 3203 Aug, [facility] [id number] [place] [address] 84363- 7486 Aug, [facility] [id number] [place] [address] 16586- 5969 Aug, [facility] [id number] [place] [address] 78078- 0845 Aug, [facility] [id number] [place] [address] 46557- 0555 Jul, [facility] [id number] [place] [address] 35110- 0827 Jul, Renal calculus, right N20.0 and Medicare welcome exam Z00.00 [facility] [id number] [place] [address] 46577 -9446 Jul, Dysuria R30.0 and Renal calculus, right N20.0 [facility] [id number] [place] [address] 76265- 3571 Jul, Medicare welcome exam Z00.00 [facility] [id number] [place] [address] 26955- 7784 Jun, Gastroesophageal reflux disease without esophagitis K21.9 and Generalized abdominal pain R10.84 [facility] [id number] [place] [address] 75196- 9489 Jun, Medicare welcome exam Z00.00 [facility] [id number] [place] [address] 60402- 1491 Jun, [facility] [id number] [place] [address] 32119- 2111 Jun, Medicare welcome exam Z00.00 and Encounter for screening mammogram for malignant neoplasm of breast Z12.31 [facility] [id number] [place] [address] 93552- 0780 02 Jun, 2017 Chronic pain G89.29 [place] [id number] [place] [address] 87934- 4826 May, [place] [address] 52268- 3401 May, Pelvic pain R10.2 [place] [address] 40882- 1171 May, Pelvic pain R10.2 [facility] [address] 05300 -4473 May, Renal calculus, right N20.0 [place] [address] 16241- 4396 May, Hematuria, unspecified type R31.9 and Nephrolithiasis N20.0 [facility] [place] [address] 77510 -1664 May, Dysuria R30.0 and Nephrolithiasis N20.0 [place] [id number] [place] [address] 58561- 9668 May, [facility] [place] [id number] [place] [address] 24077 -3281 May, Abdominal pain R10.9 and Kidney stone N20.0 [place] [id number] [place] [address] 10693- 6244 May, [place] [id number] [place] [address] 37793- 8602 May, Chronic pain G89.29 and Panic attacks F41.0 [place] [address] 29797- 2075 May, Urinary tract infection without hematuria, site unspecified N39.0 [place] [id number] [place] [address] 18921- 2426 Apr, Right lower quadrant abdominal pain R10.31 and Abnormal serum lipase level R74.8 [facility] [address] [address]- 5307 Apr, Recurrent urinary tract infection N39.0 [facility] [id number] [place] [address] 19085- 2047 Apr, UTI symptoms R39.9 ; Recurrent urinary tract infection N39.0 and Pelvic pain R10.2 [facility] [address] [place] [address] 89010- 4274 Apr, Chronic pain G89.29 and Panic attacks F41.0 [facility] [address] [place] [address] 08037- 0134 Apr, Dysuria R30.0 [facility] [id number] [place] [address] 95949- 9731 Apr, [facility] [id number] [place] [address] 24247- 4821 Apr, Dysuria R30.0 and Urinary tract infection without hematuria , site unspecified N39.0 [facility] [address], [place] [address]- 6763 Mar, UTI symptoms R39.9 [facility] [id number] [place] [address] 57575- 7148 Mar, [facility] [address] [address]- 3459 Mar, Panic attacks F41.0 and Chronic pain G89.29 [facility] [address], [place] [address]- 4433 Mar, [facility] [id number] [place] [address] 25610- 8666 09 Mar, 2017 Dysuria R30.0 [facility] [address], [place] [address]- 8534 08 Mar, 2017 Dysuria R30.0 [facility] [id number] [place] [address] 73015- 3364 Feb, Chronic pain G89.29 ; Shortness of breath R06.02 ; Weight loss R63.4 ; Encounter for immunization Z23 ; Bone pain M89.8X9 ; Right anterior knee pain M25.561 and Cough R05 [place] [id number] [place] [address] 54374- 7618 Feb, Shortness of breath R06.02 [place] [address] 37553- 5406 Feb, [place] [address] 51125- 3070 Feb, Panic attacks F41.0 and Chronic pain G89.29 [place] [address] 86890- 7694 Feb, [place] [address] 04054- 7912 Feb, Panic attacks F41.0 ; Shortness of breath R06.02 and Encounter for immunization Z23 [place] [address] 22329- 8984 Jan, [place] [id number] [place] [address] 01980- 2500 Jan, Anxiety F41.9 and Chronic pain G89.29 [place] [address] 35258- 5291 Dec, Anxiety F41.9 and Chronic pain G89.29 [place] [address] 31932- 7594 Nov, Chronic pain G89.29 [place] [address] 33780- 9777 Nov, Anxiety F41.9 [place] [id number] [place] [address] 45705- 5901 Nov, Chronic pain G89.29 ; Essential hypertension I10 and Other emphysema J43.8 [facility] [id number] [place] [address] 89964- 7123 Oct, Anxiety F41.9 [facility] [id number] [place] [address] 93472- 2826 Oct, [facility] [id number] [place] [address] 36140- 7284 Oct, Chronic pain G89.29 [facility] [id number] [place] [address] 95681- 0563 September, Recurrent UTI N39.0 ; Neuropathy G62.9 and Anxiety F41.9 [facility] [id number] [place] [address] 70098- 1667 September, [facility] [id number] [place] [address] 61780- 6312 September, Chronic pain G89.29 [facility] [id number] [place] [address] 11026- 1642 September, [facility] [id number] [place] [address] 38714- 2298 Aug, Post-traumatic stress disorder, chronic F43.12 ; Chronic urinary tract infection N39.0 ; Gastroesophageal reflux disease without esophagitis K21.9 ; Chronic pain G89.29 ; Essential hypertension I10 and Tobacco abuse Z72.0 [facility] [id number] [place] [address] 76721 -8354 Aug, [facility] [id number] [place] [address] 21597- 7216 Aug, Chronic pain G89.29 [facility] [id number] [place] [address] 27253- 4718 Aug, Insomnia, unspecified type G47.00 [facility] [id number] [place] [address] 57614- 7985 Aug, [facility] [address] [facility] [id number] [address]- 0666 Jul, Chronic pain G89.29 [facility] [address] [facility] [id number] [address]- 8730 Jul, [facility] [address], [place] [address]- 1971 Jul, [facility] [address] [address]- 4296 Jul, [facility] [address], [place] [address]- 4912 Jul, Recurrent UTI (urinary tract infection) N39.0 [facility] [address] [address]- 9362 Jul, [facility] [id number] [place] [address] 88436- 6779 Jun, Chronic pain G89.29 [facility] [address], [place] [address]- 2588 17 Jun, 2016 [facility] [address], [place] [address]- 0169 Jun, [facility] [address], [place] [address]- 8623 May, Chronic pain G89.29 [facility] [address], [place] [address]- 5947 May, Weight loss R63.4 and Shortness of breath R06.02 [facility] [address], [place] [address]- 0400 May, Chronic pain G89.29 ; Weight loss R63.4 and Tobacco abuse Z72.0 [facility] [address], [place] [address]- 2896 May, [facility] [id number] [place] [address] 04439- 8642 May, Hypoxia R09.02 [facility] [id number] [place] [address] 93696- 4872 May, [facility] [id number] [place] [address] 14921- 2433 May, Pulmonary emphysema, unspecified emphysema type J43.9 [facility] [id number] [place] [address] 60279 -5196 May, [facility] [id number] [place] [address] 85004- 4118 May, [facility] [id number] [place] [address] 70138- 0003 May, [place] [id number] [place] [address] 03085- 9071 May, Chronic pain G89.29 ; Encounter for immunization Z23 ; Right anterior knee pain M25.561 and Cough R05 [place] [id number] [place] [address] 62363- 7892 Apr, Chronic pain G89.29 [place] [id number] [place] [address] 60826- 6977 Apr, [place] [id number] [place] [address] 17557- 4472 Apr, Generalized anxiety disorder F41.1 and Depression, unspecified depression type F32.9 [facility] [id number] [place] [address] 62410- 8628 Apr, Chronic pain G89.29 ; Hypokalemia E87.6 and Insomnia, unspecified type G47.00 [place] [id number] [place] [address] 76563- 4070 Apr, [place] [id number] [place] [address] 63732- 8236 Apr, Chronic pain G89.29 [facility] [address] [id number] [place] [address]- 7651 Apr, [facility] [address] [facility] [id number] [place] [address]- 0160 Mar, [facility] [place] [facility] [address] [facility] [id number] [place] [address]- 8274 Mar, Insomnia, unspecified type G47.00 [facility] [address] [facility] [id number] [place] [address]- 6494 Mar, Chronic pain G89.29 [facility] [place] [facility] [address] [id number] [place] [address]- 1289 Mar, [facility] [place] [facility] [address] [facility] [id number] [place] [address]- 8275 Feb, [facility] [place] [facility] [address] [facility] [id number] [place] [address]- 5063 Feb, [facility] [place] [facility] [address] [facility] [id number] [place] [address]- 5906 Feb, [facility] [place] [facility] [address] [facility] [id number] [place] [address]- 8806 Feb, [facility] [place] [facility] [address] [facility] [id number] [place] [address]- 5517 Feb, [facility] [place] [facility] [address] [facility] [id number] [place] [address]- 4568 29 Jan, 2015 [facility] [place] [facility] [address] [facility] [id number] [place] [address]- 3807 26 Jan, 2015 [facility] [place] [facility] [address] [id number] [place] [address]- 2031 20 Sep, 2015 [facility] [place] [facility] [address] [facility] [id number] [place] [address]- 3881 13 Sep, 2015 [facility] [place] [facility] [address] [facility] [id number] [place] [address]- 1092 12 Jan, 2015 [facility] [place] [facility] [id number] [place] [address] 69258- 4762 07 Jan, 2016 Chronic pain G89.29 [facility] [id number] [place] [address] 43529- 6797 Jan, Chronic pain G89.29 and Fibromyalgia M79.7 [facility] [id number] [place] [address] 18373- 0143 Dec, Depression, unspecified depression type F32.9 and Generalized anxiety disorder 300.02 [facility] [id number] [place] [address] 97799- 5924 Dec, Dysthymia F34.1 ; Insomnia, unspecified type G47.00 and Chronic pain G89.29 [facility] [id number] [place] [address] 82686- 2092 Dec, Chronic pain G89.29 [facility] [id number] [place] [address] 39427- 6706 Dec, Insomnia, unspecified type G47.00 [facility] [id number] [place] [address] 39437- 6905 Dec, Fibromyalgia M79.7 and Chronic pain G89.29 [facility] [id number] [place] [address] 79387- 2125 Dec, [facility] [id number] [place] [address] 52989- 7476 Dec, [facility] [id number] [place] [address] 40384- 9402 Dec, [facility] [id number] [place] [address] 34047- 1208 Dec, [facility] [id number] [place] [address] 59232- 8010 Dec, Chronic pain G89.29 [facility] [id number] [place] [address] 89540- 3156 Dec, [place] [address], [place] [address]- 3059 Dec, [facility] [id number] [place] [address] 02579- 6664 Dec, [facility] [id number] [place] [address] 20639- 6085 Dec, Chronic pain G89.29 and Dysthymia F34.1 [facility] [id number] [place] [address] 76967- 3164 Nov, [facility] [id number] [place] [address] 95291- 8590 Nov, Hypokalemia E87.6 and Chronic pain G89.29 [place] [id number] [place] [address] 43008- 3610 Nov, Back pain M54.9 and Pain in right knee M25.561 [facility] [id number] [place] [address] 87332- 6566 Nov, [facility] [id number] [place] [address] 37987- 7544 Nov, Chronic pain G89.29 [facility] [id number] [place] [address] 07764- 8913 Nov, Chronic pain G89.29 ; Weight loss R63.4 ; Bone pain M89.8X9 and Insomnia, unspecified type G47.00 [facility] [address] [place] [address] 76468- 0892 Nov, Chronic pain G89.29 [facility] [id number] [place] [address] 59224- 0729 Nov, Chronic pain G89.29 [facility] [id number] [place] [address] 94611- 1883 Oct, Chronic pain G89.29 [facility] [id number] [place] [address] 88519- 7999 Oct, UTI symptoms R39.9 [facility] [id number] [place] [address] 15372- 3425 Oct, Chronic pain G89.29 [facility] [id number] [place] [address] 33653- 2548 Oct, Chronic pain G89.29 [facility] [id number] [place] [address] 49793- 2224 Oct, Chronic pain G89.29 [facility] [id number] [place] [address] 76559- 8824 Oct, Right upper quadrant abdominal pain R10.11 [facility] [id number] [place] [address] 67878- 2400 Oct, Chronic pain G89.29 [facility] [id number] [place] [address] 89744- 4632 Oct, [facility] [id number] [place] [address] 75522- 9337 September, Chronic pain G89.29 [facility] [id number] [place] [address] 17077- 5003 September, Dysuria R30.0 and Urinary tract infection without hematuria , site unspecified N39.0 [facility] [id number] [place] [address] 21098- 3813 September, [facility] [id number] [place] [address] 16832- 2545 September, Dysuria R30.0 [facility] [id number] [place] [address] 14465- 6751 September, Chronic pain G89.29 [facility] [id number] [place] [address] 01421- 9357 September, Chronic pain G89.29 and Essential hypertension I10 [facility] [id number] [address]- 9791 September, [facility] [id number] [place] [address] 28440- 4262 September, [facility] [id number] [place] [address] 00734- 3525 September, [facility] [id number] [place] [address] 08477- 3118 Aug, UTI symptoms R39.9 [facility] [id number] [place] [address] 82701- 6279 Aug, Dysuria R30.0 [facility] [id number] [place] [address] 21119- 9459 Aug, [facility] [id number] [place] [address] 70274- 4225 Aug, [facility] [id number] [place] [address] 53537- 1592 Aug, [facility] [id number] [place] [address] 44219- 0869 Aug, Chronic pain G89.29 [facility] [id number] [place] [address] 38676- 5870 Aug, Dysthymia F34.1 [facility] [id number] [place] [address] 03488- 5421 Aug, Conjunctivitis, unspecified conjunctivitis type, unspecified laterality H10.9 [facility] [id number] [place] [address] 82146- 5828 Jul, Chronic pain G89.29 ; Back pain M54.9 ; Tobacco abuse Z72.0 and Weight decrease R63.4 [facility] [id number] [place] [address] 07031- 0778 Jul, [facility] [id number] [place] [address] 10859- 9041 Jul, [facility] [address] [facility] [id number] [address] 24 Jul, 2015 Chronic pain G89.29 [facility] [address] [facility] [id number] [place] [address]- 6729 22 Jul, 2015 [facility] [id number] [place] [address]- 2607 21 Jul, 2015 [facility] [id number] [address] 18 Jul, 2015 [facility] [address] [place] [address]- 5467 17 Jul, 2015 [facility] [id number] [place] [address], [place] [address]- 6819 17 Jul, 2015 Chronic pain G89.29 [facility] [id number] [place] [address]- 4892 16 Jul, 2015 Chronic pain G89.29 [facility] [id number] [place] [address]- 5998 15 Jul, 2015 [facility] [address] [address] 0989 10 Jul, 2015 [facility] [address] [address] 8449 07 Jul, 2015 [facility] [address] [address] 76[address] Jul, [facility] [address] [address] 77[address] Jun, [facility] [address] [address] 7140 29 Jun, 2015 Depression, unspecified depression type F32.9 [facility] [address] [address] 379[address] 26 Jun, 2015 Pain in right knee M25.561 [facility] [id number] [place] [address] 99037- 5458 Jun, Chronic pain G89.29 ; Back pain M54.9 ; Bone pain M89.8X9 and Weight loss R63.4 [facility] [id number] [place] [address] 81649- 2325 Jun, [place] [address] 16595- 1259 May, [place] [address] 07623- 5742 May, UTI symptoms R39.9 ; Pain in right knee M25.561 ; Right low back pain, with sciatica presence unspecified M54.5 ; Right foot pain M79.671 ; Hypokalemia E87.6 and Screening, lipid Z13.220 [facility] [facility] [id number] [place] [address] 36565- 7736 May, [place] [address] 88709- 7528 May, [place] [address] 45646- 6159 Mar, [facility] [facility] [id number] [place] [address] 20968- 3741 Mar, [place] [facility] [id number] [place] [address] 50508- 0726 Mar, Hypokalemia E87.6 [facility] [facility] [id number] [place] [address] 96536- 1335 16 Mar, 2015 Encounter for immunization Z23 ; Pain in right leg M79.604 ; Pain in right knee M25.561 and Hypokalemia E87.6 [place] [id number] [place] [address] 64789- 8643 Jan, [place] [id number] [place] [address] 67221- 3960 Jan, [facility] [id number] [address] 2873 Jan, Abdominal pain, generalized 789.07 [facility] [address], [place] [address] 3046 Jan, Abdominal pain, generalized 789.07 [facility] [address], [place] [address]- 8136 Dec, [facility] [address], [place] [address]- 3076 Dec, [facility] [id number] [place] [address] 48385- 0730 Dec, [facility] [address], [place] [address]- 3988 Nov, Hallux valgus 735.0 and Hammertoe 735.4 [facility] [address], [place] [address]- 2128 Nov, [facility] [address], [place] [address]- 9638 Nov, Hallux valgus 735.0 and Hammer toe 735.4 [facility] [id number] [address]- 0936 Oct, [facility] [address] [address]- 4476 Oct, [facility] [id number], [place] [address] 1406 Oct, Pre-op evaluation V72.84 [facility] [address], [place] [address]- 0366 Oct, [facility] [address], [place] [address]- 2546 Oct, [facility] [id number], [place] [address] 3636 September, [facility] [id number], [place] [address]- 7031 September, [facility] [id number] [place] [address]- 4279 September, Hallux valgus (acquired) 735.0 and Other hammer toe ( acquired) 735.4 [facility] [address] [facility] [id number] [place] [address], [place] [address]- 1988 Aug, [facility] [address] [facility] [id number] [place] [address]- 6856 Aug, [facility] [id number] [place] [address], [place] [address]- 4432 Jul, [facility] [id number] [address]- 1872 Jul, [facility] [id number] [place] [address]- 0788 Jul, [facility] [address] [place] [address]- 1627 Jul, [facility] [address], [place] [address]- 4821 Jul, [facility] [address], [place] [address]- 6648 Jul, [facility] [address], [place] [address]- 0374 Jul, [facility] [place] [facility] [id number], [place] [address]- 6808 Jul, [facility] [place] [facility] [address], [place] [address]- 2995 Jun, [facility] [place] [facility] [address] [facility] [id number] [address]- 3208 Jun, [facility] [place] [facility] [address], [place] [address]- 2445 Jun, [facility] [place] [facility] [address] [id number] [place] [address]- 7139 Jun, [facility] [place] [facility] [address] [id number] [place] [address]- 9111 Jun, [facility] [place] [facility] [address] [id number] [place] [address]- 8835 Jun, 2014 [facility] [place] [facility] [address] [id number] [place] [address]- 9418 Jun, 2014 [facility] [place] [facility] [address] [id number] [place] [address]- 2935 Jun, [facility] [place] [facility] [address] [id number] [place] [address]- 5743 Jun, [facility] [place] [facility] [address] [id number] [place] [address]- 7998 Jun, [facility] [place] [facility] [address] [id number] [place] [address]- 4315 May, [facility] [place] [facility] [address] [id number] [place] [address]- 4300 May, [facility] [place] [facility] [address] [facility] [id number] [place] [address]- 4430 May, [facility] [place] [facility] [address] [id number] [place] [address]- 6174 May, [facility] [place] [facility] [address] [id number], [place] [address]- 5394 May, [facility] [place] [facility] [address] [id number] [place] [address]- 1412 May, [facility] [place] [facility] [address] [id number] [place] [address]- 7717 May, [facility] [place] [facility] [address] [id number], [place] [address]- 2985 May, [facility] [place] [facility] [address] [id number] [place] [address]- 2760 May, [facility] [place] [facility] [address] [id number] [place] [address]- 9866 May, [facility] [place] [facility] [address] [id number] [place] [address]- 9147 May, [facility] [place] [facility] [address] [id number] [place] [address]- 9316 May, [facility] [place] [facility] [address] [id number] [place] [address]- 5673 May, [facility] [place] [facility] [address] [id number] [place] [address]- 4642 May, [facility] [place] [facility] [address] [id number] [place] [address]- 2531 May, [facility] [place] [facility] [address] [id number] [place] [address]- 0302 May, [facility] [place] [facility] [address] [id number] [place] [address]- 7494 May, [facility] [place] [facility] [address] [id number] [place] [address]- 2284 May, [facility] [place] [facility] [address] [id number] [place] [address]- 3572 Apr, [facility] [place] [facility] [address] [id number] [place] [address]- 6171 Apr, [facility] [place] [facility] [address] [id number] [place] [address]- 5668 Apr, [facility] [place] [facility] [address] [id number] [place] [address]- 1610 Apr, [facility] [place] [facility] [address] [id number] [place] [address]- 4336 Apr, [facility] [place] [facility] [address] [id number], [place] [address]- 5726 Apr, [facility] [place] [facility] [address] [id number] [place] 7805 Apr, [facility] [place] [facility] [address] [id number] [place] [address]- 2166 Apr, [facility] [place] [facility] [address] [id number] [place] [address]- 0570 Apr, [facility] [place] [facility] [address] [id number] [place] [address]- 4035 Mar, [facility] [place] [facility] [address] [id number] [place] [address]- 5829 Mar, [facility] [place] [facility] [address] [id number] [place] [address]- 6934 Mar, [facility] [place] [facility] [address] [id number] [place] [address]- 8572 Mar, [facility] [place] [facility] [address] [id number] [place] [address]- 4563 Mar, [facility] [place] [facility] [address] [id number] [place] [address]- 9729 Feb, [facility] [place] [facility] [address] [id number] [place] [address]- 0803 Feb, [facility] [place] [facility] [address] [id number], [place] [address]- 7630 Feb, [facility] [place] [facility] [address] [id number], [place] [address]- 0531 Feb, [facility] [place] [facility] [address] [id number] [place] 7706 Feb, [facility] [place] [facility] [address] [id number] [place] 3413 Feb, [facility] [place] [facility] [address] [id number] 0418 Feb, [facility] [place] [facility] [address] [id number] [place] [address]- 7996 09 Feb, 2013 [facility] [place] [facility] [address] [id number] [place] [address]- 1202 Feb, 2013 [facility] [place] [facility] [address] [id number] [place] [address]- 8263 Feb, 2013 [facility] [place] [facility] [address] [id number] [place] [address]- 8271 Feb, 2013 [facility] [place] [facility] [address] [id number] [place] [address]- 7892 Feb, 2013 [facility] [place] [facility] [address] [id number] [place] [address]- 9397 Feb, 2013 [facility] [place] [facility] [address] [id number] [place] [address]- 4605 Feb, 2013 [facility] [place] [facility] [address] [id number] [place] [address]- 4424 Feb, 2013 [facility] [place] [facility] [address] [id number] [place] [address]- 6927 Feb, 2013 [facility] [place] [facility] [address] [id number] [place] [address]- 2716 23 Jan, 2013 [facility] [place] [facility] [address] [id number] [place] [address]- 1681 23 Sep, 2013 [facility] [place] [facility] [address] [id number] [place] [address]- 4674 20 Sep, 2013 [facility] [place] [facility] [address] [id number] [place] [address]- 2796 19 Sep, 2013 [facility] [place] [facility] [address] [id number] [place] [address]- 9423 11 Sep, 2013 [facility] [place] [facility] [address] [id number] [place] [address]- 9181 11 Sep, 2013 [facility] [place] [facility] [address] [id number] [place] [address]- 4379 Jan, [facility] [place] [facility] [address] [id number] [place] [address]- 8364 Jan, [facility] [place] [facility] [address] [id number] [place] [address]- 4716 Dec, [facility] [place] [facility] [address] [id number] [place] [address]- 5524 Dec, [facility] [place] [facility] [address] [id number] [place] [address]- 7074 Nov, [facility] [place] [facility] [address] [id number] [place] [address]- 8169 Nov, [facility] [place] [facility] [address] [id number] [place] [address]- 3113 Nov, [facility] [place] [facility] [address] [id number] [place] [address]- 6302 Nov, [facility] [place] [facility] [address] [id number] [place] [address]- 2829 Nov, [facility] [place] [facility] [address] [id number] [place] [address]- 4187 Nov, [facility] [place] [facility] [address] [id number] [place] [address]- 9715 Nov, [facility] [place] [facility] [address] [id number] [place] [address]- 3015 Nov, [facility] [place] [facility] [address] [id number] [place] [address]- 7581 Nov, [facility] [place] [facility] [address] [id number] [place] [address]- 4015 Oct, [facility] [place] [facility] [address] [id number] [place] [address]- 7516 Oct, [facility] [place] [facility] [address] [id number] [place] [address]- 2910 Oct, [facility] [place] [facility] [address] [id number] [place] [address]- 9313 Oct, [facility] [address] [id number] [place] [address]- 5903 Oct, [facility] [place] [facility] [address] [id number] [place] [address]- 5658 Oct, [facility] [place] [facility] [address] [id number] [place] [address]- 1296 September, [facility] [place] [facility] [address] [id number] [place] [address]- 2798 September, [facility] [place] [facility] [address] [id number] [place] [address]- 2143 September, [facility] [place] [facility] [address] [id number] [place] [address]- 7637 September, [facility] [place] [facility] [address] [id number] [place] [address]- 7391 September, [facility] [place] [facility] [address] [id number] [place] [address]- 7972 September, [facility] [place] [facility] [address] [id number] [place] [address]- 3854 September, [facility] [place] [facility] [address] [id number] [place] [address]- 9554 September, [facility] [place] [facility] [address] [id number] [place] [address]- 3212 September, [facility] [place] [facility] [address] [id number] [place] [address]- 5752 September, [facility] [place] [facility] [address] [id number] [place] [address]- 3393 September, [facility] [place] [facility] [address] [id number] [place] [address]- 3990 September, [facility] [place] [facility] [address] [id number] [place] [address]- 7957 September, [facility] [place] [facility] [address] [id number] [place] [address]- 1233 September, [facility] [place] [facility] [address] [id number] [place] [address]- 9682 September, [facility] [place] [facility] [address] [id number] [place] 9936 September, [facility] [place] [facility] [address] [id number] [place] [address]- 5925 September, [facility] [place] [facility] [address] [id number] [place] [address]- 1191 September, [facility] [place] [facility] [address] [id number] [place] [address]- 9195 September, [facility] [place] [facility] [address] [id number] [place] [address]- 5889 September, [facility] [place] [facility] [address] [id number] [place] [address]- 2065 Aug, [facility] [place] [facility] [address] [id number] [place] [address]- 5880 Aug, [facility] [place] [facility] [address] [id number] [place] [address]- 9578 Aug, [facility] [place] [facility] [address] [id number] [place] [address]- 1625 Aug, [facility] [place] [facility] [address] [id number] [place] [address]- 4717 Aug, [facility] [place] [facility] [address] [id number] [place] [address]- 7965 18 Aug, 2013 [facility] [place] [facility] [address] [id number] [place] [address]- 6319 16 Aug, 2013 [facility] [place] [facility] [address] [id number] [place] [address]- 2115 16 Aug, 2013 [facility] [place] [facility] [address] [id number] [place] [address]- 1953 15 Aug, 2013 [facility] [place] [facility] [address] [id number] [place] [address]- 3477 15 Aug, 2013 [facility] [place] [facility] [address] [id number] [place] [address]- 8126 14 Aug, 2013 [facility] [place] [facility] [address] [id number] [place] [address]- 2427 Aug, [facility] [place] [facility] [address] [id number] [place] [address]- 1277 Aug, [facility] [place] [facility] [address] [id number] [place] [address]- 9818 Aug, [facility] [place] [facility] [address] [id number] [place] [address]- 4556 Aug, [facility] [place] [facility] [address] [id number] [place] [address]- 4611 Jul, [facility] [place] [facility] [address] [id number] [place] [address]- 8551 31 Jul, 2013 [facility] [place] [facility] [address] [id number] [place] [address]- 4727 27 Jul, 2013 [facility] [place] [facility] [address] [id number] [place] [address]- 2081 27 Jul, 2013 [facility] [place] [facility] [address] [id number] [place] [address]- 6115 Jul, [facility] [place] [facility] [address] [id number] [place] [address]- 1730 20 Jul, 2013 [facility] [place] [facility] [address] [id number] [place] [address]- 8893 18 Jul, 2013 [facility] [place] [facility] [address] [id number] [place] [address]- 8774 18 Jul, 2013 [facility] [place] [facility] [address] [id number] [place] [address]- 2382 06 Jul, 2013 [facility] [place] [facility] [address] [id number] [place] [address]- 9480 06 Jul, 2013 [facility] [place] [facility] [address] [id number] [place] [address]- 1287 Jul, [facility] [place] [facility] [address] [id number] [place] [address]- 6282 Jul, [facility] [place] [facility] [address] [id number] [place] [address]- 7948 Jul, [facility] [place] [facility] [address] [id number] [place] [address]- 7244 Jul, [facility] [place] [facility] [address] [id number] [place] [address]- 4976 Jul, [facility] [place] [facility] [address] [id number] [place] [address]- 2120 Jun, [facility] [place] [facility] [address] [id number] [place] [address]- 8252 Jun, [facility] [place] [facility] [address] [id number] [place] [address]- 5082 Jun, [facility] [place] [facility] [address] [id number] [place] [address]- 0324 Jun, [facility] [place] [facility] [address] [id number] [place] [address]- 4551 Jun, [facility] [place] [facility] [address] [id number] [place] [address]- 2015 Jun, [facility] [place] [facility] [address] [id number] [place] [address]- 9212 May, [facility] [place] [facility] [address] [id number] [place] [address]- 9665 May, [facility] [place] [facility] [address] [id number] [place] [address]- 1345 May, [facility] [place] [facility] [address] [id number] [place] 5540 May, [facility] [address] [id number] [place] [address] May, [facility] [place] [facility] [address] [id number] [place] [address] May, [facility] [place] [facility] [address] [id number] [place] [address] 49[address] May, [facility] [place] [facility] [address] [id number] [place] [address] May, [facility] [place] [facility] [address] [id number] [place] [address] May, [facility] [place] [facility] [address] [id number] [place] [address] May, [facility] [place] [facility] [address] [id number] [place] [address] May, [facility] [place] [facility] [address] [id number] [place] [address]- [address] May, [facility] [place] [facility] [address] [id number] [place] [address] May, [facility] [place] [facility] [address] [id number] [place] [address] 9702 May, [facility] [place] [facility] [address] [id number] [place] [address] May, [facility] [place] [facility] [address] [id number] [place] [address] Apr, [facility] [place] [facility] [address] [id number] [place] [address] Apr, [facility] [place] [facility] [address] [id number] [place] [address] Apr, [facility] [place] [facility] [address] [id number] [place] [address]267 Apr, [facility] [place] [facility] [address] [id number] [place] [address]- [address] Apr, [facility] [address] [id number] [place] [address] 98[address] Apr, [facility] [address] [id number] [place] [address]- [address] Apr, [facility] [address] [id number] [place] [address]- [address] Apr, [facility] [address] [id number] [place] [address]- [address] Apr, [facility] [address] [id number] [place] [address] Apr, [facility] [address] [id number] [place] [address] Mar, [facility] [address] [id number], [place] [address]- [address] Mar, [facility] [address] [id number], [place] [address] 84[address] Mar, [facility] [address] [id number] [place] [address] Mar, [facility] [address] [id number] [place] [address]- 40[address] Mar, [facility] [address] [id number], [place] [address] Mar, [facility] [place] [facility] [address] [id number], [place] [address] Mar, [facility] [place] [facility] [address] [id number], [place] [address]- [address] Mar, [facility] [place] [facility] [address] [id number], [place] [address]200 Mar, [facility] [place] [facility] [address] [id number], [place] [address] Mar, [facility] [place] [facility] [address] [id number] [place] [address] 20 Mar, 2013 [facility] [place] [facility] [address] [id number] [place] [address] 20 Mar, 2013 [facility] [place] [facility] [address] [id number] [place] [address]- 0682 19 Mar, 2013 [facility] [place] [facility] [address] [id number] [place] [address]- [address]35 19 Mar, 2013 [facility] [place] [facility] [address] [id number] [place] [address]- [address] 18 Mar, 2013 [facility] [place] [facility] [address] [id number] [place] [address]- 4716 18 Mar, 2013 [facility] [place] [facility] [address] [id number] [place] [address]- 6208 14 Mar, 2013 [facility] [place] [facility] [address] [id number] [place] [address]- 6192 14 Mar, 2013 [facility] [place] [facility] [address] [id number] [place] [address]- 3639 Mar, [facility] [place] [facility] [address] [id number] [place] [address]- 3186 Mar, [facility] [place] [facility] [address] [id number] [place] [address]- 67[address] Mar, [facility] [place] [facility] [address] [id number] [place] [address]- 3065 Mar, [facility] [place] [facility] [address] [id number] [place] [address]- 74[address] Mar, [facility] [place] [facility] [address] [id number] [place] [address]- 1311 Feb, [facility] [place] [facility] [address] [id number] [place] [address]- [address] 18 Feb, 2013 [facility] [place] [facility] [address] [id number] [place] [address]- 9429 16 Feb, 2013 [facility] [place] [facility] [address] [id number] [place] [address]- 4922 16 Feb, 2013 [facility] [place] [facility] [address] [id number] [place] [address]- 5883 15 Feb, 2013 [facility] [place] [facility] [address] [id number] [place] [address] Feb, [facility] [place] [facility] [address] [id number] [place] [address]- 9037 Feb, [facility] [place] [facility] [address] [id number] [place] [address]- 2215 Feb, [facility] [place] [facility] [address] [id number] [place] [address]- 8797 04 Feb, 2013 [facility] [place] [facility] [address] [id number] [place] [address]- 0316 Feb, [facility] [place] [facility] [address] [id number], [place] [address] 30 Jan, 2013 [facility] [place] [facility] [address] [id number] [place] [address]- 0059 26 Jan, 2013 [facility] [place] [facility] [address] [id number] [place] [address]- 6963 24 Jan, 2013 [facility] [place] [facility] [address] [id number], [place] [address] 23 Jan, 2012 [facility] [place] [facility] [address] [id number], [place] [address] 3448 17 Jan, 2013 [facility] [place] [facility] [address] [id number] [place] [address]- 9686 28 Dec, 2012 [facility] [place] [facility] [address] [id number], [place] [address] Dec, [facility] [place] [facility] [address] [id number] [place] [address]- 4326 Dec, [facility] [place] [facility] [address] [id number] [place] [address]- [address] Dec, [facility] [address] [id number] [place] [address]- [address]238 Dec, [facility] [address] [id number] [place] [address]- 9830 Dec, [facility] [address] [id number] [place] [address]- 9887 Dec, [facility] [address] [id number] [place] [address]- 8961 Nov, [facility] [address] [id number] [place] [address]- 7218 Nov, [facility] [address] [id number] [place] [address]- 5276 Nov, [facility] [address] [id number] [place] [address]- 4743 Nov, [facility] [address] [id number] [place] [address]- 7726 Nov, [facility] [address] [id number] [place] [address] Oct, [facility] [address] [id number] [place] [address] Oct, [facility] [address] [id number] [place] [address] 96[address] Oct, [facility] [address] [id number] [place] [address] 64[address] September, [facility] [place] [facility] [address] [id number] [place] [address] 79[address] September, [facility] [place] [facility] [address] [id number] [place] [address] 4[address] September, [facility] [address] [id number] [place] [address] September, [facility] [place] [facility] [address] [id number] [place] [address] 40[address] September, [facility] [address] [id number] [place] [address] 8651 September, [facility] [address] [id number] [place] [address] September, [facility] [address] [id number] [place] [address] 27[address] Aug, [facility] [address] [id number] [place] [address]- 0017 Aug, [facility] [address] [id number] [place] [address] 4230 Aug, [facility] [address] [id number] [place] [address] 7101 29 Jul, 2012 [facility] [address] [id number] [place] [address] 2205 Jul, [facility] [address] [id number] [place] [address] 5851 Jul, [facility] [address] [id number] [place] [address] 3024 Jul, [facility] [address] [id number] [place] [address]- 2247 18 Jul, 2012 [facility] [address] [id number] [place] [address]- 8847 18 Jul, 2012 [facility] [address] [id number] [place] [address]- 0782 13 Jul, 2012 [facility] [place] [facility] [address] [id number] [place] [address]- 9087 28 Jun, 2012 [facility] [address] [id number] [place] [address]- 1109 27 Jun, 2012 [facility] [address] [id number] [place] [address]- 0846 Jun, [facility] [address] [id number] [place] [address] 2546 Jun, [facility] [address] [id number] [place] [address] 2546 Jun, [facility] [address] [id number] [place] [address] 2546 Jun, [facility] [place] [facility] [address] [id number] [place] [address] 2546 Jun, [facility] [address] [id number] [place] [address]- 8586 Jun, [facility] [address] [id number] [place] [address] 2546 Jun, [facility] [address] [id number] [place] [address] Jun, [facility] [address] [id number] [place] [address] 9[address] May, [facility] [address] [id number] [place] [address] 7793 May, [facility] [address] [facility] [id number] [place] [address] 7554 May, [facility] [address] [id number] [place] [address] 2546 May, [facility] [address] [id number] [place] [address] 2548 May, [facility] [place] [facility] [address] [id number] [place] [address]- 1259 May, [facility] [place] [facility] [address] [id number] [place] [address] 2546 Apr, [facility] [address] [id number] [place] [address]- 8587 Apr, [facility] [place] [facility] [address] [id number] [place] [address] 6[address] Apr, [facility] [place] [facility] [address] [id number] [place] [address]- 0214 Apr, [facility] [place] [facility] [address] [id number] [place] [address]- 1760 Apr, [facility] [place] [facility] [address] [id number] [place] [address]- 0527 Apr, [facility] [place] [facility] [address] [id number] [place] [address]- 6294 Apr, [facility] [place] [facility] [address] [id number] [place] [address]- 7843 Mar, [facility] [place] [facility] [address] [id number] [place] [address]- 4235 Mar, [facility] [place] [facility] [address] [id number] [place] [address]- 5509 27 Mar, 2012 [facility] [place] [facility] [address] [id number] [place] [address]- 0109 Mar, [facility] [place] [facility] [address] [facility] [id number] [place] [address]- 5102 Mar, [facility] [place] [facility] [address] [facility] [id number], [place] [address]- 6[address] 18 Mar, 2012 [facility] [place] [facility] [address] [id number], [place] [address]- 2354 18 Mar, 2012 [facility] [place] [facility] [address] [id number] [place] [address]- 0076 16 Mar, 2012 [facility] [place] [facility] [address] [id number] [place] [address]- 1688 16 Mar, 2012 [facility] [place] [facility] [address] [facility] [id number], [place] [address]- 4000 16 Mar, 2012 [facility] [place] [facility] [address] [id number], [place] [address] 3930 Mar, [facility] [place] [facility] [address] [id number] [place] [address]- 5544 Mar, [facility] [place] [facility] [address] [id number] [place] [address] Mar, [facility] [place] [facility] [address] [facility] [id number] [place] [address]- 4244 Mar, [facility] [place] [facility] [address] [id number] [place] [address]- 3016 Mar, [facility] [place] [facility] [address] [id number] [place] [address]- 1666 Mar, [facility] [place] [facility] [address] [facility] [id number] [place] [address]- 2164 Mar, [facility] [place] [facility] [address] [facility] [id number] [place] [address]- 4314 Feb, [facility] [place] [facility] [address] [facility] [id number] [place] [address]- 7773 Feb, [facility] [place] [facility] [address] [facility] [id number], [place] [address] 8180 Feb, [facility] [place] [facility] [address] [facility] [id number], [place] [address]- 9766 Feb, [facility] [place] [facility] [address] [facility] [id number], [place] [address]- 8968 Feb, [facility] [place] [facility] [address] [facility] [id number], [place] [address]- 8530 Feb, [facility] [place] [facility] [address] [facility] [id number], [place] [address]- 0375 Feb, [facility] [place] [facility] [address] [facility] [id number], [place] [address]- 0358 Feb, [facility] [place] [facility] [address] [facility] [id number], [place] [address]- 2081 Feb, [facility] [place] [facility] [address] [id number] [place] [address]- 4981 04 Feb, 2012 [facility] [place] [facility] [address] [id number] [place] [address]- 5693 Feb, [facility] [place] [facility] [address] [id number] [place] [address] 2546 27 Jan, 2011 [facility] [place] [facility] [address] [id number] [place] [address] 2546 25 Jan, 2011 [facility] [place] [facility] [address] [id number] [place] [address]- 8014 13 Jan, 2012 [facility] [place] [facility] [address] [id number] [place] [address]- 7740 12 Jan, 2012 [facility] [place] [facility] [address] [id number] [place] [address]- 6898 07 Jan, 2012 [facility] [place] [facility] [address] [id number] [place] [address]- 0508 31 Dec, 2011 [facility] [place] [facility] [address] [id number] [place] [address]- 4882 24 Dec, 2011 [facility] [place] [facility] [address] [id number] [place] [address]- 7795 Dec, [facility] [place] [facility] [address] [id number] [place] [address]- 3150 Dec, [facility] [place] [facility] [address] [id number] [place] [address]- 2699 16 Dec, 2011 [facility] [place] [facility] [address] [id number] [place] [address]- 2545 Dec, [facility] [place] [facility] [address] [id number] [place] [address]- 4816 Dec, [facility] [place] [facility] [address] [id number] [place] [address] 2546 Dec, [facility] [place] [facility] [address] [id number] [place] [address]- 8247 Nov, [facility] [place] [facility] [address] [id number] [place] [address]- 6377 Nov, [facility] [place] [facility] [address] [id number] [place] [address]- 0779 Nov, [facility] [place] [facility] [address] [id number] [place] [address]- 7342 Nov, [facility] [place] [facility] [address] [id number] [place] [address]- 9415 Nov, [facility] [place] [facility] [address] [id number] [place] [address]- 1118 Oct, [facility] [place] [facility] [address] [id number] [place] [address]- 0964 Oct, [facility] [place] [facility] [address] [id number] [place] [address]- 8294 September, [facility] [place] [facility] [address] [id number] [place] [address]- 3896 September, [facility] [place] [facility] [address] [id number] [place] [address]- 6036 September, [facility] [place] [facility] [address] [id number] [place] [address]- 5207 September, [facility] [place] [facility] [address] [id number] [place] [address]- 0704 September, [facility] [place] [facility] [address] [id number] [place] [address]- 6094 September, [facility] [place] [facility] [address] [id number] [place] [address]- 7897 September, [facility] [place] [facility] [address] [id number] [place] [address]- 8446 September, [facility] [place] [facility] [address] [id number] [place] [address]- 2761 September, [facility] [place] [facility] [address] [id number] [place] [address]- 5026 September, [facility] [address] [id number] [place] [address]- 0526 September, [facility] [address] [facility] [id number] [place] [address]- 4151 September, [facility] [address] [facility] [id number] [place] [address]- 0666 September, [facility] [address] [id number] [place] [address]- 6487 September, [facility] [address] [id number] [place] [address]- 7048 24 Aug, 2011 [facility] [address] [facility] [id number] [place] [address]- 6315 Aug, [facility] [address] [id number] [place] [address]- 5639 13 Aug, 2011 [facility] [address] [facility] [id number] [place] [address]- 0587 Aug, [facility] [id number] [place] [address]- 3687 23 Jul, 2011 [facility] [address] [id number] [place] [address]- 7686 13 Jul, 2011 [facility] [address] [id number] [place] [address]- 3505 13 Jul, 2011 [facility] [address] [id number] [address]- 6377 28 Jun, [address] [facility] [address] [id number] [id number] 26 Jun, 2011 [facility] [address] [id number] [place] [address]- 6166 13 Jun, 2011 [facility] [place] [facility] [address] [id number], [place] [address]- 6236 10 Jun, 2011 [facility] [place] [facility] [address] [id number] [place] [address]- 7077 07 Jun, 2011 [facility] [address] [id number] [place] [address]- 9836 Jun, [facility] [place] [facility] [address] [id number] [place] [address]106 Jun, [facility] [place] [facility] [address] [id number] [place] [address]- 8306 Jun, [facility] [address] [id number] [place] [address]- 0593 May, [facility] [address] [id number] [place] [address]- 2593 May, [facility] [address] [id number] [place] [address]- 0629 May, [facility] [address] [id number] [place] [address]- 9975 May, [facility] [address] [id number] [place] [address]- 4631 May, [facility] [address] [id number] [place] [address]- 3448 May, [facility] [place] [facility] [address] [id number] [place] [address]- 1202 May, [facility] [place] [facility] [address] [id number] [place] [address]- 8641 May, [facility] [place] [facility] [address] [id number] [place] [address]- 4139 May, [facility] [place] [facility] [address] [id number] [place] [address]- 1416 May, [facility] [place] [facility] [address] [id number] [place] [address]- 6255 17 May, 2011 [facility] [place] [facility] [address] [id number], [place] [address]- 0249 13 May, 2011 [facility] [place] [facility] [address] [id number] [place] [address]- 1311 May, [facility] [place] [facility] [address] [id number] [place] [address]- 5293 May, [facility] [place] [facility] [address] [id number] [place] [address]- 9481 30 Apr, 2011 [facility] [place] [facility] [address] [id number] [place] [address]- 2690 16 Apr, 2011 [facility] [place] [facility] [address] [id number] [place] [address]- 0776 Apr, [facility] [place] [facility] [address] [id number] [place] [address]- 9744 Mar, [facility] [place] [facility] [address] [id number] [place] [address]- 4237 Mar, [facility] [place] [facility] [address] [id number] [place] [address]- 1788 31 Feb, 2011 [facility] [place] [facility] [address] [id number] [place] [address]- 7574 Feb, [facility] [place] [facility] [address] [id number] [place] [address]- 6965 Feb, [facility] [place] [facility] [address] [id number] [place] [address]- 4527 Feb, [facility] [place] [facility] [address] [id number] [place] [address]- 0499 13 Feb, 2011 [facility] [place] [facility] [address] [id number] [place] [address]- 2414 28 Apr, 2010 [facility] [place] [facility] [address] [id number] [place] 8714 22 Apr, 2010 [facility] [place] [facility] [address] [id number] [place] [address]- 6360 16 Apr, 2010 [facility] [place] [facility] [address] [id number] [place] [address]- 0005 15 Apr, 2010 [facility] [place] [facility] [address] [id number] [place] 7004 15 Apr, 2010 [facility] [place] [facility] [address] [id number] [place] [address] 2546 Apr, [facility] [place] [facility] [address] [id number] [place] [address]- 2711 Mar, [facility] [place] [facility] [address] [id number] [place] [address] 2547 Mar, [facility] [place] [facility] [address] [id number] [place] [address]- 1621 Mar, [facility] [place] [facility] [address] [id number] [place] [address]- 0490 Feb, [facility] [place] [facility] [address] [id number] [place] [address]- 8124 Feb, [facility] [place] [facility] [address] [id number] [place] [address]- 7834 Feb, [facility] [place] [facility] [address] [id number] [place] [address]- 1470 Feb, [facility] [place] [facility] [address] [id number] [place] [address]- 7239 Dec, [facility] [place] [facility] [address] [id number] [place] [address]- 6261 Dec, [facility] [place] [facility] [address] [id number] [place] [address]- 0480 Oct, [facility] [place] [facility] [address] [id number] [place] [address]- 4491 Mar, [facility] [place] [facility] [address] [id number] [place] [address]- 0488 Mar, [facility] [place] [facility] [address] [id number] [place] [address]- 0529 September, IMMUNIZATIONS No Known Immunizations SOCIAL HISTORY Never Assessed REASON FOR VISIT Controlled Med [facility]kar-[id number] PLAN OF CARE VITAL SIGNS MEDICATIONS Medication [...]
--- OUTSIDE RECORDS SUMMARY | 2017-11-27 15:36 | XMS REPORT ---
Author Author VALERIE ZAVALA [facility] Address [address] [place] [address] Care Team Providers Care Cabinet Professional Name Role Phone VALERIE ZAVALA Unavailable PROBLEMS Type Condition ICD9-CM Code UNI24-FX Code Onset Dates Condition Status SNOMED Code Problem Generalized anxiety disorder F41.1 Active 09692568 Problem Hypokalemia E87.6 Active 854301636 Problem Right low back pain, with sciatica presence unspecified M54.5 Active 288355334 Problem Post-traumatic stress disorder, chronic F43.12 Active 67353476 Problem Pain in right knee M25.561 Active 02707404 Problem Gastroesophageal reflux disease without esophagitis K21.9 Active 681988392 Problem UTI symptoms R39.9 Active 70687448 Problem Essential hypertension I10 Active 94411868 Problem Anxiety F41.9 Active 37241959 Problem Neuropathy G62.9 Active 807503011 Problem Other chronic pain G89.29 Active 67735868 Problem Generalized abdominal pain R10.84 Active 875240387 Problem Chronic pain G89.29 Active 41231042 Problem Back pain M54.9 Active 423114799 Problem Right foot pain M79.671 Active 02533885 Problem Panic attacks F41.0 Active 025776107 Problem Other emphysema J43.8 Active 15030423 Problem Kidney stones N20.0 Active 51429144 Problem Renal calculus, right N20.0 Active 42330702 Problem Weight decrease R63.4 Active 035244672 Problem Tobacco abuse Z72.0 Active 32855705 Problem Bone pain M89.8X9 Active 18720253 Problem Depression, unspecified depression type F32.9 Active 19909379 Problem Insomnia, unspecified type G47.00 Active 983790390 Problem Pulmonary emphysema, unspecified emphysema type J43.9 Active 37603835 Problem Right upper quadrant abdominal pain R10.11 Active 086572208 Problem Weight loss R63.4 Active 418913074 ALLERGIES No Information ENCOUNTERS Encounter Location Date Diagnosis [facility], [place] [id number] [address] Nov, [facility], [place] [id number] [place] [address] 39350- 0646 Oct, [facility], [place] [id number] [place] [address] 71088- 1335 Oct, Medicare welcome exam Z00.00 [facility], [place] [id number] [place] [address] 92252- 9544 September, Back pain M54.9 and Right anterior knee pain M25.561 [facility], [place] [id number] [place] [address] 69328- 6317 September, [facility], [place] [id number] [place] [address] 80863- 1145 September, [facility], [place] [id number] [place] [address] 68454- 1530 September, Essential hypertension I10 [facility], [place] [id number] [place] [address] 68939- 6594 September, [facility], [place] [id number] [place] [address] 47306- 1298 September, RLQ abdominal pain R10.31 ; Low back pain M54.5 and Other chronic pain G89.29 [facility], [place] [id number] [place] [address] 48818- 1113 Aug, Medicare welcome exam Z00.00 [facility], [place] [id number] [place] [address] 52614- 7727 Aug, [facility], [place] [id number] [place] [address] 93616- 2531 Aug, Acute pyelonephritis N10 and Medicare welcome exam Z00.00 [facility] [id number] [place] [address] 43918 -7137 Aug, Dysuria R30.0 and Acute pyelonephritis N10 [facility], [place] [id number] [address] 8440 Aug, [facility], [place] [id number] [place] [address] 46670- 4402 Aug, [facility], [place] [id number] [place] [address] 40616- 7257 Aug, [facility], [place] [id number] [place] [address] 70921- 4180 Aug, [facility], [place] [id number] [place] [address] 50981- 5289 Jul, [facility], [place] [id number] [place] [address] 06879- 7260 Jul, Renal calculus, right N20.0 and Medicare welcome exam Z00.00 [facility] [id number] [place] [address] 28545 -0441 Jul, Dysuria R30.0 and Renal calculus, right N20.0 [facility], [place] [id number] [place] [address] 62560- 8954 Jul, Medicare welcome exam Z00.00 [facility], [place] [id number] [place] [address] 38339- 9684 13 Jun, 2017 Gastroesophageal reflux disease without esophagitis K21.9 and Generalized abdominal pain R10.84 [facility], [place] [id number] [address]- 6141 Jun, Medicare welcome exam Z00.00 [facility], [place] [id number] [place] [address] 35174- 1587 Jun, [facility], [place] [id number] [place] [address] 96287- 3300 05 Jun, 2017 Medicare welcome exam Z00.00 and Encounter for screening mammogram for malignant neoplasm of breast Z12.31 [place] [facility] [id number] [place] [address] 73663- 1807 Jun, Chronic pain G89.29 [facility] [id number] [place] [address] 55559- 4067 May, [facility], [place] [id number] [place] [address] 28271- 2162 May, Pelvic pain R10.2 [facility] [id number] [place] [address] 68941- 3975 May, Pelvic pain R10.2 [facility] [id number] [place] [address] 11040 -3861 May, Renal calculus, right N20.0 [facility] [id number] [place] [address] 49095- 0943 May, Hematuria, unspecified type R31.9 and Nephrolithiasis N20.0 [facility] [id number] [place] [address] 05518 -8880 May, Dysuria R30.0 and Nephrolithiasis N20.0 [facility] [id number] [place] [address] 36426- 4076 May, [facility] [id number] [place] [address] 87820 -2735 May, Abdominal pain R10.9 and Kidney stone N20.0 [facility] [id number] [place] [address] 75421- 9767 May, [facility], [place] [id number] [place] [address] 96277- 4501 May, Chronic pain G89.29 and Panic attacks F41.0 [facility], [place] [id number] [place] [address] 01521- 4950 May, Urinary tract infection without hematuria, site unspecified N39.0 [facility] [id number] [place] [address] 08842- 2312 Apr, Right lower quadrant abdominal pain R10.31 and Abnormal serum lipase level R74.8 [facility], [place] [id number] [place] [address] 64564- 8255 Apr, Recurrent urinary tract infection N39.0 [facility], [place] [id number] [place] [address] 81237- 0734 Apr, UTI symptoms R39.9 ; Recurrent urinary tract infection N39.0 and Pelvic pain R10.2 [facility] [id number] [place] [address] 24121- 7568 Apr, Chronic pain G89.29 and Panic attacks F41.0 [facility] [id number] [place] [address] 99349- 7372 Apr, Dysuria R30.0 [facility] [id number] [place] [address] 30074- 0091 Apr, [facility], [place] [id number] [place] [address] 88080- 1737 Apr, Dysuria R30.0 and Urinary tract infection without hematuria , site unspecified N39.0 [facility] [id number] [place] [address] 21227- 9707 Mar, UTI symptoms R39.9 [facility], [place] [id number] [place] [address] 82764- 5043 Mar, [facility], [place] [id number] [place] [address] 26381- 9229 Mar, Panic attacks F41.0 and Chronic pain G89.29 [facility], [place] [id number] [place] [address] 50120- 0533 Mar, [facility], [place] [id number] [place] [address] 89195- 1414 Mar, Dysuria R30.0 [facility], [place] [id number] [place] [address] 80898- 2007 Mar, Dysuria R30.0 [facility] [id number] [place] [address] 36722- 2751 Feb, Chronic pain G89.29 ; Shortness of breath R06.02 ; Weight loss R63.4 ; Encounter for immunization Z23 ; Bone pain M89.8X9 ; Right anterior knee pain M25.561 and Cough R05 [facility] [address] 58828- 7085 Feb, Shortness of breath R06.02 [facility] [address] 44345- 3009 Feb, [facility] [address] 10833- 1146 Feb, Panic attacks F41.0 and Chronic pain G89.29 [facility] [address] 19692- 6032 Feb, [facility] [address] 80069- 4569 Feb, Panic attacks F41.0 ; Shortness of breath R06.02 and Encounter for immunization Z23 [facility] [id number] [place] [address] 10578- 3134 Jan, [facility] [id number] [place] [address] 20846- 6879 Jan, Anxiety F41.9 and Chronic pain G89.29 [facility] [id number] [place] [address] 49311- 3975 Dec, Anxiety F41.9 and Chronic pain G89.29 [facility] [id number] [place] [address] 83383- 3623 Nov, Chronic pain G89.29 [facility] [id number] [place] [address] 48164- 6403 Nov, Anxiety F41.9 [facility] [id number] [place] [address] 04120- 1192 Nov, Chronic pain G89.29 ; Essential hypertension I10 and Other emphysema J43.8 [facility], [place] [id number] [place] [address] 43368- 0385 Oct, Anxiety F41.9 [facility], [place] [id number] [place] [address] 53168- 8980 Oct, [facility], [place] [id number] [place] [address] 51106- 2357 Oct, Chronic pain G89.29 [facility], [place] [address] 35961- 0486 September, Recurrent UTI N39.0 ; Neuropathy G62.9 and Anxiety F41.9 [facility], [place] [id number] [place] [address] 14270- 9880 September, [facility], [place] [id number] [place] [address] 97642- 5206 September, Chronic pain G89.29 [facility], [place] [id number] [place] [address] 48642- 4474 September, [facility], [place] [id number] [place] [address] 27263- 7826 Aug, Post-traumatic stress disorder, chronic F43.12 ; Chronic urinary tract infection N39.0 ; Gastroesophageal reflux disease without esophagitis K21.9 ; Chronic pain G89.29 ; Essential hypertension I10 and Tobacco abuse Z72.0 [facility] [id number] [place] [address] 89263 -7770 Aug, [facility], [place] [id number] [place] [address] 62504- 8471 Aug, Chronic pain G89.29 [facility], [place] [id number] [place] [address] 72905- 5744 Aug, Insomnia, unspecified type G47.00 [facility], [place] [id number] [address]- 4241 13 Aug, 2016 [facility], [place] [id number] [place] [address] 00055- 4269 24 Jul, 2016 Chronic pain G89.29 [facility], [place] [id number] [place] [address] 52149- 3992 Jul, [facility], [place] [id number] [place] [address] 15547- 6715 Jul, [facility], [place] [id number] [place] [address] 36525- 1343 Jul, [facility], [place] [id number] [place] [address] 49201- 2471 15 Jul, 2016 Recurrent UTI (urinary tract infection) N39.0 [facility], [place] [id number] [place] [address] 69616- 0229 Jul, [facility], [place] [id number] [place] [address] 69926- 3830 Jun, Chronic pain G89.29 [facility], [place] [id number] [place] [address] 89128- 1089 17 Jun, 2016 [facility], [place] [id number] [place] [address] 02884- 0827 13 Jun, 2016 [facility], [place] [id number] [place] [address] 10220- 5545 May, Chronic pain G89.29 [facility], [place] [id number] [place] [address] 13574- 5607 May, Weight loss R63.4 and Shortness of breath R06.02 [facility], [place] [id number] [place] [address] 65786- 9959 May, Chronic pain G89.29 ; Weight loss R63.4 and Tobacco abuse Z72.0 [facility], [place] [id number] [place] [address] 61261- 2528 May, [facility], [place] [id number] [address]- 2532 May, Hypoxia R09.02 [facility], [place] [id number] [address]- 4142 May, [facility], [place] [id number] [place] [address] 74770- 9479 May, Pulmonary emphysema, unspecified emphysema type J43.9 [facility] [id number] [place] [address] 68611 -3183 May, [facility], [place] [id number] [place] [address] 18880- 1277 May, [facility], [place] [id number] [place] [address] 95144- 3284 May, [facility], [place] [id number] [place] [address] 52972- 1321 May, Chronic pain G89.29 ; Encounter for immunization Z23 ; Right anterior knee pain M25.561 and Cough R05 [facility] [id number] [place] [address] 30301- 5708 Apr, Chronic pain G89.29 [facility], [place] [id number] [place] [address] 92123- 8310 Apr, [facility], [place] [id number] [place] [address] 14772- 4060 Apr, Generalized anxiety disorder F41.1 and Depression, unspecified depression type F32.9 [facility], [place] [id number] [place] [address] 40984- 3783 Apr, Chronic pain G89.29 ; Hypokalemia E87.6 and Insomnia, unspecified type G47.00 [facility], [place] [address] [address]- 0503 Apr, [facility], [place] [id number] [address]- 9646 Apr, Chronic pain G89.29 [facility] [address] [facility] [id number] [place] [address]- 4128 Apr, [facility] [address] [facility] [id number] [place] [address]- 6676 Mar, [facility] [address] [facility] [id number] [place] [address]- 2954 Mar, Insomnia, unspecified type G47.00 [facility] [address] [facility] [id number] [place] [address]- 3206 Mar, Chronic pain G89.29 [facility] [address] [facility] [id number] [place] [address]- 6763 Mar, [facility] [id number] [address]- 0894 Feb, [facility] [address] [facility] [id number] [address]- 8128 Feb, [facility] [address] [facility] [id number] [place] [address]- 4326 Feb, [facility] [place] [facility] [id number] [address]- 5913 Feb, [facility] [id number] [address]- 3337 Feb, [facility] [place] [facility] [address] [facility] [id number] [address]- 8324 29 Jan, 2016 [facility] [place] [facility] [address] [facility] [id number] [place] [address]- 8581 26 Jan, 2016 [facility] [place] [facility] [address] [facility] [id number] [place] [address]- 3804 20 Jan, 2015 [facility] [place] [facility] [id number] [address]- 4396 13 Jan, 2015 [facility] [place] [facility] [address] [address]- 4230 12 Jan, 2016 [facility], [place] [id number] [place] [address] 25361- 0341 07 Jan, 2016 Chronic pain G89.29 [facility], [place] [id number] [place] [address] 94384- 3145 Jan, Chronic pain G89.29 and Fibromyalgia M79.7 [facility], [place] [id number] [place] [address] 85219- 2807 Dec, Depression, unspecified depression type F32.9 and Generalized anxiety disorder 300.02 [facility], [place] [id number] [place] [address] 14910- 2325 Dec, Dysthymia F34.1 ; Insomnia, unspecified type G47.00 and Chronic pain G89.29 [facility], [place] [id number] [place] [address] 25854- 0380 Dec, Chronic pain G89.29 [facility], [place] [id number] [place] [address] 03699- 3980 Dec, Insomnia, unspecified type G47.00 [facility], [place] [id number] [place] [address] 28766- 4126 Dec, Fibromyalgia M79.7 and Chronic pain G89.29 [facility], [place] [id number] [place] [address] 54506- 5412 Dec, [facility] [place] [id number] [place] [address] 91981- 3893 Dec, [facility] [place] [id number] [place] [address] 91717- 3637 Dec, [facility] [place] [id number] [place] [address] 68619- 6212 Dec, [facility] [place] [id number] [place] [address] 36073- 0967 Dec, Chronic pain G89.29 [facility], [place] [id number] [place] [address] 94580- 9028 Dec, [facility] [place] [id number] [place] [address] 74937- 0592 Dec, [facility] [place] [id number] [place] [address] 59965- 6235 Dec, [facility] [place] [address] 45721- 4951 Dec, Chronic pain G89.29 and Dysthymia F34.1 [facility], [place] [id number] [place] [address] 43025- 4394 Nov, [facility] [place] [id number] [place] [address] 31482- 8517 Nov, Hypokalemia E87.6 and Chronic pain G89.29 [facility] [place] [id number] [place] [address] 45987- 7835 Nov, Back pain M54.9 and Pain in right knee M25.561 [facility], [place] [id number] [place] [address] 95683- 4334 Nov, [facility] [place] [id number] [place] [address] 65388- 5521 Nov, Chronic pain G89.29 [facility], [place] [id number] [place] [address] 28320- 9994 Nov, Chronic pain G89.29 ; Weight loss R63.4 ; Bone pain M89.8X9 and Insomnia, unspecified type G47.00 [facility] [place] [id number] [place] [address] 62656- 5948 Nov, Chronic pain G89.29 [facility], [place] [id number] [place] [address] 80673- 5278 Nov, Chronic pain G89.29 [facility], [place] [id number] [place] [address] 60650- 3692 30 Oct, 2015 Chronic pain G89.29 [facility], [place] [id number] [address] Oct, UTI symptoms R39.9 [facility], [place] [id number] [address] 2546 Oct, Chronic pain G89.29 [facility], [place] [id number] [place] [address] 08510- 1896 Oct, Chronic pain G89.29 [facility], [place] [id number] [place] [address] 13589- 8048 Oct, Chronic pain G89.29 [facility], [place] [id number] [place] [address] 48301- 0817 Oct, Right upper quadrant abdominal pain R10.11 [facility], [place] [id number] [place] [address] 15193- 9951 Oct, Chronic pain G89.29 [facility], [place] [id number] [place] [address] 35654- 5883 Oct, [facility], [place] [id number] [place] [address] 54765- 3852 September, Chronic pain G89.29 [facility], [place] [id number] [address] September, Dysuria R30.0 and Urinary tract infection without hematuria , site unspecified N39.0 [facility], [place] [id number] [address] September, [facility], [place] [id number] [place] [address] 52857- 8730 September, Dysuria R30.0 [facility], [place] [id number] [address]42 September, Chronic pain G89.29 [facility], [place] [id number] [place] [address] 39518- 6691 September, Chronic pain G89.29 and Essential hypertension I10 [facility], [place] [id number] [place] [address] 03084- 8012 September, [facility], [place] [address] [address]- [address] September, [facility], [place] [id number] [place] [address] 57211- 9898 September, [facility], [place] [address] [address]- 5897 Aug, UTI symptoms R39.9 [facility], [place] [address] [address]- 1414 Aug, Dysuria R30.0 [facility], [place] [id number] [place] [address] 96357- 0921 Aug, [facility], [place] [address] 36[address]- [address]01 Aug, [facility], [place] [id number] [place] [address] 58293- 4176 Aug, [facility], [place] [address] [place] [id number] [place] [address] 28829- 3570 Aug, Chronic pain G89.29 [facility], [place] [id number] [place] [address] 10133- 6970 Aug, Dysthymia F34.1 [facility], [place] [id number] [place] [address] 73039- 1266 Aug, Conjunctivitis, unspecified conjunctivitis type, unspecified laterality H10.9 [facility], [place] [id number] [place] [address] 90772- 4148 Jul, Chronic pain G89.29 ; Back pain M54.9 ; Tobacco abuse Z72.0 and Weight decrease R63.4 [facility], [place] [id number] [place] [address] 13598- 9797 Jul, [facility], [place] [address] [facility] [id number] [place] [address]- 7200 30 Jul, 2015 [facility], [place] [address] [facility] [id number] [place] [address]- 1993 24 Jul, 2015 Chronic pain G89.29 [facility], [place] [address] [facility] [id number] [place] [address]- 3708 22 Jul, 2015 [facility], [place] [address] [facility] [id number] [place] [address]- 3812 21 Jul, 2015 [facility], [place] [address] [facility] [id number] [place] [address]- 7226 18 Jul, 2015 [facility], [place] [address] [facility] [id number] [place] [address]- 3481 17 Jul, 2015 [facility], [place] [address]100[facility] [address]- 3360 17 Jul, 2015 Chronic pain G89.29 [facility], [place] [address] [facility] [id number] [place] [address]- 8038 16 Jul, 2015 Chronic pain G89.29 [facility], [place] [address] [address]- 8575 15 Jul, 2015 [facility], [place] [id number] [address]- 4879 10 Jul, 2015 [facility], [place] [address] [address]- 6784 07 Jul, 2015 [facility], [place] [address] [facility] [id number] [place] [address]- 5898 Jul, [facility], [place] [address] [facility] [id number] [address]- 5004 Jun, [facility], [place] [address] [id number] [address]- 4623 Jun, Depression, unspecified depression type F32.9 [facility], [place] [id number] [place] [address] 13709- 5434 Jun, Pain in right knee M25.561 [place] [id number] [place] [address] 05710- 4671 Jun, Chronic pain G89.29 ; Back pain M54.9 ; Bone pain M89.8X9 and Weight loss R63.4 [place] [address] [address]- 3241 Jun, [place] [address] 71909- 0263 May, [place] [address] 72695- 3902 May, UTI symptoms R39.9 ; Pain in right knee M25.561 ; Right low back pain, with sciatica presence unspecified M54.5 ; Right foot pain M79.671 ; Hypokalemia E87.6 and Screening, lipid Z13.220 [place] [address] [address]37- 5466 May, [place] [address] 10196- 9530 May, [place] [id number] [place] [address] 81531- 9476 Mar, [place] [id number] [place] [address] 51330- 8821 Mar, [place] [address] 64915- 5459 Mar, Hypokalemia E87.6 [place] [address] 05505- 0430 16 Mar, 2015 Pain in right leg M79.604 ; Encounter for immunization Z23 ; Pain in right knee M25.561 and Hypokalemia E87.6 [place] [address] 43895- 4442 Jan, [facility], [place] [address] [address]- 3705 Jan, [facility] [address] [address]- 1636 Jan, Abdominal pain, generalized 789.07 [facility], [place] [id number] [address]- 4196 Jan, Abdominal pain, generalized 789.07 [facility], [place] [id number] [address]- 8916 Dec, [facility], [place] [id number] [place] [address] 62956- 9838 Dec, [facility], [place] [id number] [address]- 4668 Dec, [facility], [place] [id number] [address]- 7203 Nov, Hallux valgus 735.0 and Hammertoe 735.4 [facility], [place] [address] [address]- 5550 Nov, [facility], [place] [id number] [address]- 4108 Nov, Hallux valgus 735.0 and Hammer toe 735.4 [facility], [place] [id number] [address]- 1456 Oct, [facility], [place] [id number] [address]- 4015 Oct, [facility], [place] [id number] 3140 Oct, Pre-op evaluation V72.84 [facility], [place] [id number] [address]- 8016 Oct, [facility], [place] [address] [address]- 4446 Oct, [facility] [address] [facility] [id number] [place] [address]- 5139 September, [facility] [address] [facility] [id number] [place] [address]- 3976 September, [facility] [address] [facility] [id number] [place] [address]- 2902 September, Hallux valgus (acquired) 735.0 and Other hammer toe ( acquired) 735.4 [facility] [address] [facility] [id number] [place] [address]- 9716 Aug, [facility] [address] [facility] [id number] [place] [address], [place] [address]- 4584 Aug, [facility] [address] [address]- 2191 Jul, [facility] [id number] [address]- 8586 Jul, [facility] [id number] [address]- 6310 Jul, [facility] [address] [facility] [id number] [place] [address]- 8126 Jul, [facility] [id number] [address]- 3317 Jul, [facility] [place] [facility] [address] [facility] [id number][place] [address]- 3858 Jul, [facility] [place] [facility] [address] [facility] [id number] 6886 Jul, [facility] [place] [facility] [address] [facility] [id number] [place] 8831 Jul, [facility] [place] [facility] [address] [facility] [id number][place] [address]- 5829 Jun, [facility] [place] [facility] [address] [facility] [id number] [address]- 0201 Jun, 2014 [facility] [place] [facility] [address] [id number] [place] [address]- 6316 Jun, [facility] [place] [facility] [address] [id number] [place] 7211 Jun, 2014 [facility] [place] [facility] [address] [id number] [place] [address]- 4829 Jun, 2014 [facility] [place] [facility] [address] [id number] [place] [address]- 2386 Jun, 2014 [facility] [place] [facility] [address] [id number] [place] [address]- 6022 Jun, 2014 [facility] [place] [facility] [address] [id number] [place] [address]- 7989 Jun, [facility] [place] [facility] [address] [facility] [id number] [place] [address]- 9602 Jun, [facility] [place] [facility] [address] [id number] [place] [address]- 4200 Jun, [facility] [place] [facility] [address] [id number] [place] [address]- 7891 May, [facility] [place] [facility] [address] [facility] [id number] [place] [address]- 4366 May, [facility] [place] [facility] [address] [facility] [id number] [place] [address]- 7089 May, [facility] [place] [facility] [address] [id number] [place] [address]- 1889 May, [facility] [place] [facility] [address] [id number] [place] [address]- 4534 May, [facility] [place] [facility] [address] [facility] [id number] [place] [address]- 5106 May, [facility] [place] [facility] [address] [facility] [id number] [address]- 5450 May, [facility] [place] [facility] [address] [id number] [place] [address]- 7284 May, [facility] [place] [facility] [address] [id number] [place] [address]- 9202 May, [facility] [place] [facility] [address] [id number] [place] [address]- 2213 May, [facility] [place] [facility] [address] [id number] [place] [address]- 9005 May, [facility] [place] [facility] [address] [id number] [place] [address]- 4345 May, [facility] [place] [facility] [address] [id number] [place] [address]- 0550 May, [facility] [place] [facility] [address] [id number] [place] [address]- 9787 May, [facility] [place] [facility] [address] [id number] [place] [address]- 6028 May, [facility] [place] [facility] [address] [id number] [place] [address]- 8954 May, [facility] [place] [facility] [address] [id number] [place] [address]- 7210 May, [facility] [place] [facility] [address] [id number] [place] [address]- 7374 May, [facility] [place] [facility] [address] [id number] [place] [address]- 3747 Apr, [facility] [place] [facility] [address] [id number] [place] [address]- 1060 Apr, [facility] [place] [facility] [address] [id number] [place] [address]- 1751 Apr, [facility] [place] [facility] [address] [id number] [place] [address]- 7916 Apr, [facility] [place] [facility] [address] [id number] [address]- 3576 Apr, [facility] [place] [facility] [address] [id number] [place] 9958 Apr, [facility] [place] [facility] [address] [id number] [place] [address]- 7234 Apr, [facility] [place] [facility] [address] [facility] [id number] [place] 9462 Apr, [facility] [place] [facility] [address] [id number] [place]- 6908 Apr, [facility] [place] [facility] [address] [id number] [place] [address]- 0661 Mar, [facility] [place] [facility] [address] [id number] [place] [address]- 6867 Mar, [facility] [place] [facility] [address] [id number] [place] [address]- 7144 Mar, [facility] [place] [facility] [address] [id number] [place] [address]- 7410 Mar, [facility] [place] [facility] [address] [id number] [place] [address]- 2428 Mar, [facility] [place] [facility] [address] [id number] [place] [address]- 6524 Feb, [facility] [place] [facility] [address] [id number][place] [address]- 2568 Feb, [facility] [place] [facility] [address] [id number], [place] [address]- 1559 Feb, [facility] [place] [facility] [address] [id number] [place] [address]- 2204 Feb, [facility] [place] [facility] [address] [id number][place] 7320 Feb, [facility] [place] [facility] [address] [id number][place] [address]- 1073 Feb, [facility] [place] [facility] [address] [id number] [place] [address]- 3143 Feb, 2013 [facility] [place] [facility] [address] [id number] [place] [address]- 3238 Feb, 2013 [facility] [place] [facility] [address] [id number] [place] [address]- 5676 Feb, 2013 [facility] [place] [facility] [address] [id number] [place] [address]- 2784 Feb, 2013 [facility] [place] [facility] [address] [id number] [place] [address]- 7051 Feb, 2013 [facility] [place] [facility] [address] [id number] [place] [address]- 0418 Feb, 2013 [facility] [place] [facility] [address] [id number] [place] [address]- 4520 Feb, 2013 [facility] [place] [facility] [address] [id number] [place] [address]- 2258 Feb, 2013 [facility] [place] [facility] [address] [id number] [place] [address]- 2557 Feb, 2013 [facility] [place] [facility] [address] [id number] [place] [address]- 1608 Feb, 2013 [facility] [place] [facility] [address] [id number] [place] [address]- 7548 Jan, 2013 [facility] [place] [facility] [address] [id number] [place] [address]- 4306 23 Sep, 2013 [facility] [place] [facility] [address] [id number] [place] [address]- 1247 20 Sep, 2013 [facility] [place] [facility] [address] [id number] [place] [address]- 4722 19 Sep, 2013 [facility] [place] [facility] [address] [id number] [place] [address]- 1963 11 Jan, 2013 [facility] [place] [facility] [address] [id number] [place] [address]- 7164 Jan, [facility] [place] [facility] [address] [id number] [place] [address]- 7014 Jan, [facility] [place] [facility] [address] [id number] [place] [address]- 0556 Jan, [facility] [place] [facility] [address] [id number] [place] [address]- 0194 Dec, [facility] [place] [facility] [address] [id number] [place] [address]- 3016 Dec, [facility] [place] [facility] [address] [id number] [place] [address]- 4703 Nov, [facility] [place] [facility] [address] [id number] [place] [address]- 6917 Nov, [facility] [place] [facility] [address] [id number] [place] [address]- 0196 Nov, [facility] [place] [facility] [address] [id number] [place] [address]- 5713 Nov, [facility] [place] [facility] [address] [id number] [place] [address]- 9100 Nov, [facility] [place] [facility] [address] [id number] [place] [address]- 0619 Nov, [facility] [place] [facility] [address] [id number] [place] [address]- 5722 Nov, [facility] [place] [facility] [address] [id number] [place] [address]- 1486 Nov, [facility] [place] [facility] [address] [id number] [place] [address]- 5927 Nov, [facility] [place] [facility] [address] [id number] [place] [address]- 9976 Oct, [facility] [place] [facility] [address] [id number] [place] [address]- 7476 Oct, [facility] [place] [facility] [address] [id number] [place] [address]- 3257 Oct, [facility] [place] [facility] [address] [id number] [place] [address]- 5968 Oct, [facility] [place] [facility] [address] [id number] [place] [address]- 5041 Oct, [facility] [place] [facility] [address] [id number] [place] [address]- 3260 Oct, [facility] [place] [facility] [address] [id number] [place] [address]- 4409 September, [facility] [place] [facility] [address] [id number] [place] [address]- 9792 September, [facility] [place] [facility] [address] [id number] [place] [address]- 2837 September, [facility] [place] [facility] [address] [id number] [place] [address]- 5620 September, [facility] [place] [facility] [address] [id number] [place] [address]- 1271 September, [facility] [place] [facility] [address] [id number] [place] [address]- 5747 September, [facility] [place] [facility] [address] [id number] [place] [address]- 7449 September, [facility] [place] [facility] [address] [id number] [place] [address]- 2346 September, [facility] [place] [facility] [address] [id number] [place] [address]- 0131 September, [facility] [place] [facility] [address] [id number] [place] [address]- 9349 September, [facility] [place] [facility] [address] [id number] [place] [address]- 2132 September, [facility] [place] [facility] [address] [id number] [place] [address]- 4232 September, [facility] [place] [facility] [address] [id number] [place] [address]- 5450 September, [facility] [place] [facility] [address] [id number] [place] [address]- 8576 September, [facility] [place] [facility] [address] [id number] [place] [address]- 6445 September, [facility] [place] [facility] [address] [id number] [place] [address]- 5261 September, [facility] [place] [facility] [address] [id number] [place] 6786 September, [facility] [place] [facility] [address] [id number] [place] [address]- 7789 September, [facility] [place] [facility] [address] [id number] [place] [address]- 5344 September, [facility] [place] [facility] [address] [id number] [place] [address]- 0378 September, [facility] [place] [facility] [address] [id number] [place] [address]- 4661 Aug, [facility] [place] [facility] [address] [id number] [place] [address]- 6452 Aug, [facility] [place] [facility] [address] [id number] [place] [address]- 9227 Aug, [facility] [place] [facility] [address] [id number] [place] [address]- 9720 Aug, [facility] [place] [facility] [address] [id number] [place] [address]- 6582 Aug, [facility] [place] [facility] [address] [id number] [place] [address]- 2498 Aug, [facility] [place] [facility] [address] [id number] [place] 9013 Aug, [facility] [place] [facility] [address] [id number] [place] [address]- 0263 16 Aug, 2013 [facility] [place] [facility] [address] [id number] [place] [address]- 8097 15 Aug, 2013 [facility] [place] [facility] [address] [id number] [place] [address]- 5416 15 Aug, 2013 [facility] [place] [facility] [address] [id number] [place] [address]- 4568 14 Aug, 2013 [facility] [place] [facility] [address] [id number] [place] [address]- 2047 Aug, [facility] [place] [facility] [address] [id number] [place] [address]- 1561 Aug, [facility] [place] [facility] [address] [id number] [place] [address]- 5998 Aug, [facility] [place] [facility] [address] [id number] [place] [address] Aug, [facility] [place] [facility] [address] [id number] [place] [address] 31 Jul, 2013 [facility] [place] [facility] [address] [id number] [place] [address] 31 Jul, 2013 [facility] [place] [facility] [address] [id number] [place] [address] 27 Jul, 2013 [facility] [place] [facility] [address] [id number] [place] [address] 27 Jul, 2013 [facility] [place] [facility] [address] [id number] [place] [address]- 9631 20 Jul, 2013 [facility] [place] [facility] [address] [id number] [place] [address]34 20 Jul, 2013 [facility] [place] [facility] [address] [id number] [place] [address] 8492 18 Jul, 2013 [facility] [place] [facility] [address] [id number] [place] [address]- 4068 18 Jul, 2013 [facility] [place] [facility] [address] [id number] [place] [address]- 2424 06 Jul, 2013 [facility] [place] [facility] [address] [id number] [place] [address]- 3475 Jul, [facility] [place] [facility] [address] [id number] [place] [address]- 8268 Jul, [facility] [place] [facility] [address] [id number] [place] [address]- 5963 Jul, [facility] [place] [facility] [address] [id number] [place] [address]- 3954 Jul, [facility] [place] [facility] [address] [id number] [place] [address]- 9217 Jul, [facility] [place] [facility] [address] [id number] [place] [address]- 4076 Jul, [facility] [place] [facility] [address] [id number] [place] [address]- 8297 Jun, [facility] [place] [facility] [address] [id number] [place] [address]- 8541 Jun, [facility] [place] [facility] [address] [id number] [place] [address]- [address]647 Jun, [facility] [place] [facility] [address] [facility] [id number] [place] [address]- 36[address] Jun, [facility] [place] [facility] [address] [id number] [place] [address]- [address]119 Jun, [facility] [place] [facility] [address] [id number] [place] [address]- 6980 Jun, [facility] [place] [facility] [address] [id number] [place] [address]- 8408 May, [facility] [place] [facility] [address] [id number] [place] [address]- 8906 May, [facility] [place] [facility] [address] [id number] [place] [address]- 0452 May, [facility] [address] [id number] [place] [address]- 9915 May, [facility] [place] [facility] [address] [id number] [place] [address]- 9468 May, [facility] [place] [facility] [address] [id number] [place] [address]- 1003 May, [facility] [place] [facility] [address] [id number] [place] [address]- 4844 May, [facility] [place] [facility] [address] [id number] [place] [address]- 5909 May, [facility] [place] [facility] [address] [id number] [place] [address]- 1676 May, [facility] [place] [facility] [address] [id number] [place] [address]- 1284 May, [facility] [place] [facility] [address] [id number] [place] [address]- 1300 May, [facility] [place] [facility] [address] [id number] [place] [address]- 1602 May, [facility] [place] [facility] [address] [id number] [place] [address]- 3989 May, [facility] [place] [facility] [address] [id number] [place] [address]- 7020 May, [facility] [place] [facility] [address] [id number] [place] [address]- 9597 May, [facility] [place] [facility] [address] [id number] [place] [address]- 7797 Apr, [facility] [place] [facility] [address] [id number] [place] [address]- 5535 Apr, [facility] [place] [facility] [address] [id number] [place] [address]- 9641 Apr, [facility] [place] [facility] [address] [id number] [place] [address]- 0901 Apr, [facility] [address] [id number] [place] [address]- 9847 Apr, [facility] [address] [id number] [place] [address]- 7436 Apr, [facility] [address] [id number] [place] [address]- 1916 Apr, [facility] [place] [facility] [address] [id number] [place] [address]- 3993 Apr, [facility] [address] [id number] [place] [address]- 1790 Apr, [facility] [address] [id number] [place] [address]- 8328 Apr, [facility] [address] [id number], [place] [address] Mar, [facility] [address] [id number], [place] [address] Mar, [facility] [address] [id number] [place] [address]- 1048 Mar, [facility] [address] [id number] [place] [address]- 3448 Mar, [facility] [address] [id number] [place] [address]- 7125 Mar, [facility] [place] [facility] [address] [id number], [place] [address]- [address] Mar, [facility] [place] [facility] [address] [id number], [place] [address]- 1136 Mar, [facility] [place] [facility] [address] [id number], [place] [address]- [address]706 Mar, [facility] [place] [facility] [address] [id number], [place] [address]- 160[address] Mar, [facility] [place] [facility] [address] [id number] [place] [address]- 0441 Mar, [facility] [place] [facility] [address] [id number] [place] [address]- 8711 Mar, [facility] [place] [facility] [address] [id number] [place] [address]- 4044 Mar, [facility] [place] [facility] [address] [id number] [place] [address]- 6363 Mar, [facility] [place] [facility] [address] [id number] [place] [address]- 1918 Mar, [facility] [place] [facility] [address] [id number] [place] [address]- 6689 Mar, [facility] [place] [facility] [address] [id number] [place] [address]- 5349 18 Mar, 2013 [facility] [place] [facility] [address] [id number] [place] [address]- 0431 Mar, [facility] [place] [facility] [address] [id number] [place] [address]- 2847 Mar, [facility] [place] [facility] [address] [id number] [place] [address] Mar, [facility] [place] [facility] [address] [id number] [place] [address] 9398 Mar, [facility] [place] [facility] [address] [id number] [place] [address] 4407 Mar, [facility] [place] [facility] [address] [id number] [place] [address] 8841 Mar, [facility] [place] [facility] [address] [id number] [place] [address] 1550 Mar, [facility] [place] [facility] [address] [id number] [place] [address]- 7126 18 Feb, 2013 [facility] [place] [facility] [address] [id number] [place] [address]- 8038 18 Feb, 2013 [facility] [place] [facility] [address] [id number] [place] [address]- 1810 16 Feb, 2013 [facility] [place] [facility] [address] [id number] [place] [address]- 7094 16 Feb, 2013 [facility] [place] [facility] [address] [id number] [place] [address]- 9031 15 Feb, 2013 [facility] [place] [facility] [address] [id number] [place] [address]- 4598 Feb, [facility] [place] [facility] [address] [id number] [place] [address]- 6405 Feb, [facility] [place] [facility] [address] [id number] [place] [address]- 4800 Feb, [facility] [place] [facility] [address] [id number] [place] [address]- 3369 04 Feb, 2013 [facility] [place] [facility] [address] [id number][place] [address]- 7[address] 03 Feb, 2013 [facility] [place] [facility] [address] [id number] [place] [address]- 6088 30 Jan, 2013 [facility] [place] [facility] [address] [id number] [place] [address]- 8080 26 Jan, 2013 [facility] [place] [facility] [address] [id number][place] [address]- 8794 24 Jan, 2013 [facility] [place] [facility] [address] [id number], [place] [address]- 2541 23 Jan, 2013 [facility] [place] [facility] [address] [id number] [place] [address]- 8939 17 Jan, 2013 [facility] [place] [facility] [address] [id number], [place] [address]- 6150 28 Dec, 2012 [facility] [place] [facility] [address] [id number][place] [address]- 0373 Dec, [facility] [place] [facility] [address] [id number] [place] [address]- 9624 Dec, [facility] [address] [id number] [place] [address]- 5295 Dec, [facility] [place] [facility] [address] [id number] [place] [address]- 5686 Dec, [facility] [address] [id number] [place] [address]- 8773 Dec, [facility] [place] [facility] [address] [id number] [place] [address]- 9309 Dec, [facility] [address] [id number] [place] [address]- 6199 Nov, [facility] [address] [id number] [place] [address]- 7835 Nov, [facility] [address] [id number] [place] [address]- 7167 Nov, [facility] [address] [id number] [place] [address]- 4043 Nov, [facility] [place] [facility] [address] [id number] [place] [address]- 7561 Nov, [facility] [address] [id number] [place] [address]- 2759 Oct, [facility] [place] [facility] [address] [id number] [place] [address]- 3073 Oct, [facility] [place] [facility] [address] [id number] [place] [address]- 0278 Oct, [facility] [place] [facility] [address] [id number] [place] [address]- 5571 September, [facility] [place] [facility] [address] [id number] [place] [address]- 7991 September, [facility] [place] [facility] [address] [id number] [place] [address]- 0903 September, [facility] [address] [id number] [place] [address]- 6692 September, [facility] [address] [id number] [place] [address] September, [facility] [address] [id number] [place] [address]- 3702 September, [facility] [address] [id number] [place] [address]- 5641 September, [facility] [address] [id number] [place] [address]- 9353 Aug, [facility] [address] [id number] [place] [address]- 5625 Aug, [facility] [address] [id number] [place] [address]- 8898 Aug, [facility] [address] [id number] [place] [address]- 5862 29 Jul, 2012 [facility] [address] [id number] [place] [address]- 2700 Jul, [facility] [address] [id number] [place] [address]- 8206 26 Jul, 2012 [facility] [address] [id number] [place] [address]- 6585 Jul, [facility] [address] [id number] [place] [address]- 5963 18 Jul, 2012 [facility] [address] [id number] [place] [address]- 9580 18 Jul, 2012 [facility] [address] [id number] [place] [address]- 7353 13 Jul, 2012 [facility] [address] [id number] [place] [address]- 3342 28 Jun, 2012 [facility] [address] [id number] [place] [address]- 0897 Jun, [facility] [address] [id number] [place] [address] 2546 Jun, [facility] [place] [facility] [address] [id number] [place] [address]- 1906 Jun, [facility] [address] [id number] [place] [address]- 1416 Jun, [facility] [place] [facility] [address] [id number] [place] [address] 2546 Jun, [facility] [place] [facility] [address] [id number] [place] [address]- 0846 Jun, [facility] [place] [facility] [address] [id number] [place] [address]- 6636 Jun, [facility] [place] [facility] [address] [facility] [id number] [place] [address]- 0986 Jun, [facility] [address] [id number] [place] [address]- 3288 Jun, [facility] [place] [facility] [address] [id number] [place] [address]- 3882 May, [facility] [address] [id number] [place] [address]- 7977 May, [facility] [place] [facility] [address] [id number] [place] [address] 2546 May, [facility] [place] [facility] [address] [id number] [place] [address] 2545 May, [facility] [place] [facility] [address] [id number] [place] [address]- 8359 May, [facility] [place] [facility] [address] [id number] [place] [address] 2546 May, [facility] [place] [facility] [address] [id number] [place] [address]- 3810 Apr, [facility] [place] [facility] [address] [id number] [place] [address]- 5814 31 Apr, 2012 [facility] [place] [facility] [address] [id number] [place] [address]- 1379 Apr, [facility] [place] [facility] [address] [id number] [place] [address]- 4674 Apr, [facility] [place] [facility] [address] [id number] [place] [address]- 4588 Apr, [facility] [place] [facility] [address] [id number] [place] [address]- 7369 Apr, [facility] [place] [facility] [address] [id number] [place] [address]- 6001 Apr, [facility] [place] [facility] [address] [id number] [place] [address]- 2509 Mar, [facility] [place] [facility] [address] [id number] [place] [address]- 9683 29 Mar, 2012 [facility] [place] [facility] [address] [id number] [place] [address]- 1011 Mar, [facility] [place] [facility] [address] [facility] [id number] [place] [address]- 4579 Mar, [facility] [place] [facility] [address] [id number] [place] [address]- 7850 Mar, [facility] [place] [facility] [address] [id number][place] [address]- 1788 18 Mar, 2012 [facility] [place] [facility] [address] [id number] [place] [address]- 7579 18 Mar, 2012 [facility] [place] [facility] [address] [id number] [place] [address]- 2097 16 Mar, 2012 [facility] [place] [facility] [address] [facility] [id number], [place] [address]- 9120 16 Mar, 2012 [facility] [place] [facility] [address] [id number], [place] [address]- 6277 Mar, [facility] [place] [facility] [address] [id number] [place] [address]- 3581 Mar, [facility] [place] [facility] [address] [id number] [place] [address]- 4015 Mar, [facility] [place] [facility] [address] [facility] [id number] [place] [address]- 1657 Mar, [facility] [place] [facility] [address] [id number] [place] [address]- 4984 Mar, [facility] [place] [facility] [address] [id number] [place] [address]- 1066 Mar, [facility] [place] [facility] [address] [facility] [id number] [place] [address]- 4056 Mar, [facility] [place] [facility] [address] [facility] [id number] [place] [address]- 7595 Mar, [facility] [place] [facility] [address] [facility] [id number] [place] [address]- 3381 Feb, [facility] [place] [facility] [address] [facility] [id number] [place] [address]- 5525 Feb, [facility] [place] [facility] [address] [facility] [id number][place] [address]- 7903 Feb, [facility] [place] [facility] [address] [facility] [id number], [place] [address]- 1334 Feb, [facility] [place] [facility] [address] [facility] [id number][place] [address]- 8161 Feb, [facility] [place] [facility] [address] [id number][place] [address]- 0148 Feb, [facility] [place] [facility] [address] [facility] [id number], [place] [address]- 5819 Feb, [facility] [place] [facility] [address] [facility] [id number][place] [address]- 2645 Feb, [facility] [place] [facility] [address] [id number] [place] [address]- 5235 05 Feb, 2012 [facility] [place] [facility] [address] [id number] [place] [address]- 8639 04 Feb, 2012 [facility] [place] [facility] [address] [id number] [place] [address]- 9756 Feb, [facility] [place] [facility] [address] [id number] [place] [address]- 4986 27 Jan, 2012 [facility] [place] [facility] [address] [id number] [place] [address]- 8466 25 Jan, 2012 [facility] [place] [facility] [address] [id number] [place] [address]- 7998 13 Jan, 2012 [facility] [place] [facility] [address] [id number] [place] [address]- 1429 12 Jan, 2012 [facility] [place] [facility] [address] [id number] [place] [address]- 5240 07 Jan, 2012 [facility] [place] [facility] [address] [id number] [place] [address]- 5390 31 Dec, 2011 [facility] [place] [facility] [address] [id number] [place] [address]- 7682 24 Dec, 2011 [facility] [place] [facility] [address] [id number] [place] [address]- 8847 Dec, [facility] [place] [facility] [address] [id number] [place] [address]- 1403 18 Dec, 2011 [facility] [place] [facility] [address] [id number] [place] [address]- 9391 16 Dec, 2011 [facility] [place] [facility] [address] [id number] [place] [address]- 4559 Dec, [facility] [place] [facility] [address] [id number] [place] [address]- 8056 Dec, [facility] [place] [facility] [address] [id number] [place] [address]- 7976 Dec, [facility] [place] [facility] [address] [id number] [place] [address]- 1680 Nov, [facility] [place] [facility] [address] [id number] [place] [address]- 6502 Nov, [facility] [place] [facility] [address] [id number] [place] [address]- 3318 Nov, [facility] [place] [facility] [address] [id number] [place] [address]- 8483 Nov, [facility] [place] [facility] [address] [id number] [place] [address]- 9353 Nov, [facility] [place] [facility] [address] [id number] [place] [address]- 4454 Oct, [facility] [place] [facility] [address] [id number] [place] [address]- 1651 Oct, [facility] [place] [facility] [address] [id number] [place] [address]- 8991 September, [facility] [place] [facility] [address] [id number] [place] [address]- 1029 September, [facility] [place] [facility] [address] [id number] [place] [address]- 5173 September, [facility] [place] [facility] [address] [id number] [place] [address]- 0011 September, [facility] [place] [facility] [address] [id number] [place] [address]- 0739 September, [facility] [place] [facility] [address] [id number] [place] [address]- 2624 September, [facility] [place] [facility] [address] [id number] [place] [address]- 3168 September, [facility] [place] [facility] [address] [id number] [place] [address]- 5157 September, [facility] [place] [facility] [address] [id number] [place] [address]- 0234 September, [facility] [address] [id number] [place] [address]- 0995 September, [facility] [address] [id number] [place] [address]- 4947 September, [facility] [address] [id number] [place] [address]- 9046 September, [facility] [address] [id number] [place] [address]- 2886 September, [facility] [address] [id number] [place] [address]- 9714 September, [facility] [address] [id number] [place] [address]- 9557 24 Aug, 2011 [facility] [address] [id number] [place] [address]- 5381 Aug, [facility] [address] [id number] [place] [address]- 7352 13 Aug, 2011 [facility] [address] [id number] [place] [address]- 1280 Aug, [facility] [address] [id number] [place] [address]- 1173 23 Jul, 2011 [facility] [address] [id number] [place] [address]- 1318 13 Jul, 2011 [facility] [address] [id number] [place] [address]- 5736 13 Jul, 2011 [facility] [address] [id number] [place] [address]- 3091 28 Jun, [address] [facility] [address] [id number] [id number] Jun, 2011 [facility] [address] [id number], [place] [address]- 0627 13 Jun, 2011 [facility] [address] [id number] [place] [address]- 9587 10 Jun, 2011 [facility] [place] [facility] [address] [id number] [place] [address]- 7430 07 Jun, 2011 [facility] [place] [facility] [address] [id number] [place] [address]- 5156 07 Jun, 2011 [facility] [place] [facility] [address] [id number] [place] [address]- 3116 Jun, [facility] [place] [facility] [address] [id number] [place] [address]- 9527 Jun, [facility] [place] [facility] [address] [id number] [place] [address]- 5959 May, [facility] [place] [facility] [address] [id number] [place] [address]- 5890 May, [facility] [address] [id number] [place] [address]- 2221 May, [facility] [place] [facility] [address] [id number] [place] [address]- 4310 May, [facility] [place] [facility] [address] [id number] [place] [address]- 8708 May, [facility] [place] [facility] [address] [id number] [place] [address]- 5550 May, [facility] [place] [facility] [address] [id number] [place] [address]- 7635 May, [facility] [place] [facility] [address] [id number] [place] [address]- 8924 May, [facility] [place] [facility] [address] [id number] [place] [address]- 8046 May, [facility] [place] [facility] [address] [id number] [place] [address]- 3972 May, [facility] [place] [facility] [address] [id number], [place] [address]- 3479 17 May, 2011 [facility] [place] [facility] [address] [id number] [place] [address]- 1247 May, [facility] [place] [facility] [address] [id number] [place] [address]- 5134 May, [facility] [place] [facility] [address] [id number] [place] [address]- 6646 May, [facility] [place] [facility] [address] [id number] [place] [address]- 3288 30 Apr, 2011 [facility] [place] [facility] [address] [id number] [place] [address]- 9493 16 Apr, 2011 [facility] [place] [facility] [address] [id number] [place] [address]- 7320 05 Apr, 2011 [facility] [place] [facility] [address] [id number] [place] [address]- 9388 Mar, [facility] [place] [facility] [address] [id number] [place] [address]- 3805 Mar, [facility] [place] [facility] [address] [id number] [place] [address]- 4034 31 Feb, 2011 [facility] [place] [facility] [address] [id number] [place] [address]- 8752 26 Feb, 2011 [facility] [place] [facility] [address] [id number], [place] [address]- 0456 Feb, [facility] [place] [facility] [address] [id number] [place] [address]- 5913 20 Feb, 2011 [facility] [place] [facility] [address] [id number] [place] [address]- 4429 13 Feb, 2011 [facility] [place] [facility] [address] [id number] [place] [address]- 6509 28 Apr, 2010 [facility] [place] [facility] [address] [id number] [place] [address]- 4870 22 Apr, 2010 [facility] [place] [facility] [address] [id number] [place] [address]- 1435 16 Apr, 2010 [facility] [place] [facility] [address] [id number] [place] [address]- 9678 15 Apr, 2010 [facility] [place] [facility] [address] [id number] [place] [address]- 2666 15 Apr, 2010 [facility] [place] [facility] [address] [id number] [place] [address]- 1170 Apr, [facility] [place] [facility] [address] [id number] [place] [address]- 3861 24 Mar, 2010 [facility] [place] [facility] [address] [id number] [place] [address]- 7733 Mar, [facility] [place] [facility] [address] [id number] [place] [address]- 2006 17 Mar, 2010 [facility] [place] [facility] [address] [id number] [place] [address]- 3563 Feb, [facility] [place] [facility] [address] [id number] [place] [address] Feb, [facility] [place] [facility] [address] [id number] [place] [address] Feb, [facility] [place] [facility] [address] [id number] [place] [address] 15 Feb, 2010 [facility] [place] [facility] [address] [id number] [place] [address] Dec, [facility] [place] [facility] [address] [id number] [place] [address] Dec, [facility] [place] [facility] [address] [id number] [place] [address] 15 Oct, 2009 [facility] [place] [facility] [address] [id number] [place] [address] Mar, [facility] [place] [facility] [address] [id number] [place] [address] Mar, [facility] [place] [address] [facility] [id number] [place] [address] September, IMMUNIZATIONS No Known Immunizations SOCIAL HISTORY Never Assessed REASON FOR VISIT Rocephin order PLAN OF CARE VITAL SIGNS MEDICATIONS Medication Instructions Dosage Frequency Start Date End Date Duration Status Keflex 500 mg Orally 3 times a day 1 capsule 8h Apr, May, 07 days Active RESULTS No Results PROCEDURES [...]
--- OUTSIDE RECORDS SUMMARY | 2017-11-27 15:37 | XMS REPORT ---
Author Author VALERIE ZAVALA [facility] Address [address] [place] [address] Care Team Providers Care Proposal Coordinator Name Role Phone VALERIE ZAVALA Unavailable PROBLEMS Type Condition ICD9-CM Code OFW62-PQ Code Onset Dates Condition Status SNOMED Code Problem Generalized anxiety disorder F41.1 Active 34324847 Problem Hypokalemia E87.6 Active 889657384 Problem Right low back pain, with sciatica presence unspecified M54.5 Active 214450789 Problem Post-traumatic stress disorder, chronic F43.12 Active 32110649 Problem Pain in right knee M25.561 Active 63759282 Problem Gastroesophageal reflux disease without esophagitis K21.9 Active 885338325 Problem UTI symptoms R39.9 Active 61734449 Problem Essential hypertension I10 Active 75266246 Problem Anxiety F41.9 Active 41111349 Problem Neuropathy G62.9 Active 689851130 Problem Other chronic pain G89.29 Active 00113002 Problem Generalized abdominal pain R10.84 Active 928994525 Problem Chronic pain G89.29 Active 48096078 Problem Back pain M54.9 Active 346933752 Problem Right foot pain M79.671 Active 00592059 Problem Panic attacks F41.0 Active 921818943 Problem Other emphysema J43.8 Active 05835341 Problem Kidney stones N20.0 Active 91936996 Problem Renal calculus, right N20.0 Active 06109540 Problem Weight decrease R63.4 Active 979582390 Problem Tobacco abuse Z72.0 Active 37035518 Problem Bone pain M89.8X9 Active 14271217 Problem Depression, unspecified depression type F32.9 Active 66344725 Problem Insomnia, unspecified type G47.00 Active 329715667 Problem Pulmonary emphysema, unspecified emphysema type J43.9 Active 34734984 Problem Right upper quadrant abdominal pain R10.11 Active 479745702 Problem Weight loss R63.4 Active [id number] ALLERGIES No Information ENCOUNTERS Encounter Location Date Diagnosis [facility] [address] [address] Nov, [facility] [id number] [place] [address] 72031- 6003 Oct, Medicare welcome exam Z00.00 [facility] [id number] [place] [address] 14847- 6975 18 Oct, 2017 Gross hematuria R31.0 ; Urinary tract infection without hematuria, site unspecified N39.0 and Weakness R53.1 [facility] [id number] [place] [address] 79499- 9812 Oct, [facility] [id number] [place] [address] 63139- 2477 Oct, [facility] [id number] [place] [address] 59795- 0403 Oct, Medicare welcome exam Z00.00 [facility] [id number] [place] [address] 69945- 0850 September, Back pain M54.9 and Right anterior knee pain M25.561 [facility] [id number] [place] [address] 03883- 7194 September, [facility] [id number] [place] [address] 02614- 9665 September, [facility] [id number] [place] [address] 35265- 8299 September, Essential hypertension I10 [facility] [id number] [place] [address] 03305- 4847 September, [facility] [id number] [place] [address] 23847- 3445 September, RLQ abdominal pain R10.31 ; Low back pain M54.5 and Other chronic pain G89.29 [facility] [id number] [place] [address] 32067- 1178 Aug, Medicare welcome exam Z00.00 [facility] [id number] [place] [address] 11940- 9965 Aug, [facility] [id number] [place] [address] 37556 2546 Aug, Acute pyelonephritis N10 and Medicare welcome exam Z00.[address] [facility] [id number] [place] [address] 21128 -3046 Aug, Dysuria R30.0 and Acute pyelonephritis N10 [facility] [id number] [place] [address] 27430- 8442 Aug, [facility] [id number] [place] [address] 47965- 7597 Aug, [facility] [id number] [place] [address] 62516- 2647 Aug, [facility] [id number] [place] [address] 62811- 2850 Aug, [facility] [id number] [place] [address] 98391- 8762 Jul, [facility] [id number] [place] [address] 58553- 1356 Jul, Renal calculus, right N20.0 and Medicare welcome exam Z00.[address] [facility] [id number] [place] [address] 38003 -3127 Jul, Dysuria R30.0 and Renal calculus, right N20.0 [facility] [id number] [place] [address] 09354- 6497 Jul, Medicare welcome exam Z00.00 [facility] [id number] [place] [address] 78658- 0052 13 Jun, 2017 Gastroesophageal reflux disease without esophagitis K21.9 and Generalized abdominal pain R10.84 [facility] [address] [address] 3169 09 Jun, 2017 Medicare welcome exam Z00.00 [facility] [id number] [place] [address] 27576- 6983 05 Jun, 2017 [facility] [id number] [place] [address] 79717- 4445 05 Jun, 2017 Medicare welcome exam Z00.00 and Encounter for screening mammogram for malignant neoplasm of breast Z12.31 [facility] [id number] [place] [address] 84821- 8926 02 Jun, 2017 Chronic pain G89.29 [facility] [id number] [place] [address] 78450- 3893 May, [facility] [id number] [place] [address] 32891- 8800 May, Pelvic pain R10.2 [facility] [id number] [place] [address] 38180- 4671 May, Pelvic pain R10.2 [facility] [id number] [place] [address] 50912 -0697 May, Renal calculus, right N20.0 [facility] [id number] [place] [address] 21964- 2685 May, Hematuria, unspecified type R31.9 and Nephrolithiasis N20.0 [facility] [id number] [place] [address] 88367 -6659 May, Dysuria R30.0 and Nephrolithiasis N20.0 [facility] [id number] [place] [address] 65430- 6998 May, [facility] [id number] [place] [address] 34866 -4512 May, Abdominal pain R10.9 and Kidney stone N20.0 [facility] [id number] [address] 3736 May, [facility] [id number] [place] [address] 63268- 7630 May, Chronic pain G89.29 and Panic attacks F41.0 [facility] [address] [address]- 6641 May, Urinary tract infection without hematuria, site unspecified N39.0 [facility] [address] [address]- 7850 Apr, Right lower quadrant abdominal pain R10.31 and Abnormal serum lipase level R74.8 [facility] [address] [address]- 0695 Apr, Recurrent urinary tract infection N39.0 [facility] [address] [address] 0850 Apr, UTI symptoms R39.9 ; Recurrent urinary tract infection N39.0 and Pelvic pain R10.2 [facility] [address] [address]- 3649 Apr, Chronic pain G89.29 and Panic attacks F41.0 [facility] [address] [address]- 7839 Apr, Dysuria R30.0 [facility] [address] [address]- 3713 Apr, [facility] [id number] [address]- 7516 Apr, Dysuria R30.0 and Urinary tract infection without hematuria , site unspecified N39.0 [facility] [address] [address]- 7618 Mar, UTI symptoms R39.9 [facility] [id number] [address]- 5034 Mar, [facility] [id number] [place] [address] 47226- 3367 Mar, Panic attacks F41.0 and Chronic pain G89.29 [facility] [address] 70498- 4155 Mar, [facility] [address] 87595- 6354 Mar, Dysuria R30.0 [facility] [address] 02718- 9043 Mar, Dysuria R30.0 [facility] [address] 73987- 9247 Feb, Chronic pain G89.29 ; Shortness of breath R06.02 ; Weight loss R63.4 ; Encounter for immunization Z23 ; Bone pain M89.8X9 ; Right anterior knee pain M25.561 and Cough R05 [facility] [address] 78321- 8901 Feb, Shortness of breath R06.02 [facility] [id number] [place] [address] 25577- 9308 Feb, [facility] [id number] [place] [address] 53495- 1717 Feb, Panic attacks F41.0 and Chronic pain G89.29 [facility] [id number] [place] [address] 95929- 9127 Feb, [facility] [id number] [place] [address] 26552- 7430 Feb, Panic attacks F41.0 ; Shortness of breath R06.02 and Encounter for immunization Z23 [facility] [id number] [place] [address] 53827- 2437 Jan, [facility] [id number] [place] [address] 03039- 2039 15 Jan, 2017 Anxiety F41.9 and Chronic pain G89.29 [facility] [id number] [place] [address] 80832- 7634 Dec, Anxiety F41.9 and Chronic pain G89.29 [facility] [id number] [place] [address] 52411- 9715 Nov, Chronic pain G89.29 [facility] [id number] [place] [address] 18441- 0453 Nov, Anxiety F41.9 [facility] [address] 78621- 2523 Nov, Chronic pain G89.29 ; Essential hypertension I10 and Other emphysema J43.8 [facility] [id number] [place] [address] 26369- 0728 Oct, Anxiety F41.9 [facility] [id number] [place] [address] 52582- 3173 Oct, [facility] [id number] [place] [address] 22175- 6305 Oct, Chronic pain G89.29 [facility] [id number] [place] [address] 97015- 3550 September, Recurrent UTI N39.0 ; Neuropathy G62.9 and Anxiety F41.9 [facility] [id number] [place] [address] 94985- 4403 September, [facility] [id number] [place] [address] 63336- 9992 September, Chronic pain G89.29 [facility] [id number] [place] [address] 85691- 1110 September, [facility] [id number] [place] [address] 52119- 0115 Aug, Post-traumatic stress disorder, chronic F43.12 ; Chronic urinary tract infection N39.0 ; Gastroesophageal reflux disease without esophagitis K21.9 ; Chronic pain G89.29 ; Essential hypertension I10 and Tobacco abuse Z72.[address] [facility] [address] [address]5316 Aug, [facility] [id number] [place] [address] 97592- 5326 Aug, Chronic pain G89.29 [facility] [id number] [place] [address] 86393- 6585 Aug, Insomnia, unspecified type G47.00 [facility] [id number] [place] [address] 47496- 4087 Aug, [facility] [id number] [place] [address] 28085- 2433 24 Jul, 2016 Chronic pain G89.29 [facility] [id number] [place] [address] 27169- 5622 Jul, [facility] [id number] [place] [address] 87008- 0839 Jul, [facility] [id number] [place] [address] 79847- 7364 Jul, [facility] [id number] [place] [address] 68184- 0826 15 Jul, 2016 Recurrent UTI (urinary tract infection) N39.0 [facility] [address] [address]- 0122 14 Jul, 2016 [facility] [id number] [place] [address] 88295- 2545 Jun, Chronic pain G89.29 [facility] [address] [address]- 8936 17 Jun, 2016 [facility] [address] [address]- 6586 Jun, [facility] [id number] [place] [address] 22366- 6242 May, Chronic pain G89.29 [facility] [id number] [place] [address] 10766- 8758 May, Weight loss R63.4 and Shortness of breath R06.02 [facility] [id number] [place] [address] 17578- 8955 May, Chronic pain G89.29 ; Weight loss R63.4 and Tobacco abuse Z72.0 [facility] [address] 68466- 8178 May, [facility] [address] 66460- 3808 May, Hypoxia R09.02 [facility] [address] 17456- 1178 May, [facility] [address] 45676- 5948 May, Pulmonary emphysema, unspecified emphysema type J43.[address] [facility] [id number] [place] [address] 08220 -5617 May, [facility] [id number] [place] [address] 40126- 1288 May, [facility] [id number] [place] [address] 33743- 2700 May, [facility] [id number] [place] [address] 21462- 2156 May, Chronic pain G89.29 ; Encounter for immunization Z23 ; Right anterior knee pain M25.561 and Cough R05 [facility] [address] 83322- 9851 Apr, Chronic pain G89.29 [facility] [id number] [place] [address] 55152- 8243 Apr, [facility] [address] 92712- 9338 Apr, Generalized anxiety disorder F41.1 and Depression, unspecified depression type F32.9 [facility] [id number] [place] [address] 67083- 9908 Apr, Chronic pain G89.29 ; Hypokalemia E87.6 and Insomnia, unspecified type G47.00 [facility] [id number] [place] [address] 97097- 2785 Apr, [facility] [id number] [place] [address] 97093- 9923 Apr, Chronic pain G89.29 [facility] [id number] [place] [address], [place] [address]- 7551 Apr, [facility] [id number] [place] [address] 07589- 0183 Mar, [facility] [id number] [place] [address] 26944- 4114 Mar, Insomnia, unspecified type G47.00 [facility] [id number] [place] [address] 87302- 0256 Mar, Chronic pain G89.29 [facility] [id number] [place] [address] 45574- 1631 Mar, [facility] [id number] [place] [address] 04763- 3362 Feb, [facility] [id number] [place] [address] 91380- 9145 Feb, [facility] [id number] [place] [address] 98892- 8722 Feb, [facility] [id number] [place] [address] 55772- 5729 Feb, [facility] [id number] [place] [address] 69636- 6378 Feb, [facility] [address] [address]- 4404 29 Jan, 2016 [facility] [id number] [place] [address] 51820- 0943 26 Jan, 2016 [facility] [id number] [place] [address] 57882- 9932 20 Jan, 2015 [facility] [id number] [place] [address] 49836- 5176 13 Jan, 2016 [facility] [id number] [place] [address] 68299- 2062 12 Jan, 2016 [facility] [id number] [place] [address] 90184- 1396 07 Jan, 2016 Chronic pain G89.29 [facility] [id number] [place] [address] 93404- 3434 Jan, Chronic pain G89.29 and Fibromyalgia M79.7 [facility] [id number] [place] [address] 36485- 3099 Dec, Depression, unspecified depression type F32.9 and Generalized anxiety disorder 300.02 [facility] [id number] [place] [address] 62502- 1771 Dec, Dysthymia F34.1 ; Insomnia, unspecified type G47.00 and Chronic pain G89.29 [facility] [id number] [place] [address] 74363- 6490 Dec, Chronic pain G89.29 [facility] [id number] [place] [address] 68249- 1843 Dec, Insomnia, unspecified type G47.00 [facility] [id number] [place] [address] 53666- 1612 Dec, Fibromyalgia M79.7 and Chronic pain G89.29 [facility] [id number] [place] [address] 00661- 2854 Dec, [facility] [address] [address]- 6811 Dec, [facility] [id number] [place] [address] 80611- 7418 Dec, [facility] [id number] [place] [address] 12220- 8350 Dec, [facility] [id number] [place] [address] 59482- 9970 Dec, Chronic pain G89.29 [facility] [id number] [place] [address] 46625- 5778 Dec, [facility] [id number] [place] [address] 08085- 8922 Dec, [facility] [id number] [place] [address] 04257- 9204 Dec, [facility] [id number] [place] [address] 13412- 8529 Dec, Chronic pain G89.29 and Dysthymia F34.1 [facility] [id number] [place] [address] 41139- 6767 Nov, [facility] [id number] [place] [address] 46879- 0118 Nov, Hypokalemia E87.6 and Chronic pain G89.29 [facility] [id number] [place] [address] 19691- 4158 Nov, Back pain M54.9 and Pain in right knee M25.561 [facility] [id number] [place] [address] 40133- 0585 Nov, [facility] [id number] [place] [address] 74175- 2056 Nov, Chronic pain G89.29 [facility] [id number] [place] [address] 06643- 7097 Nov, Chronic pain G89.29 ; Weight loss R63.4 ; Bone pain M89.8X9 and Insomnia, unspecified type G47.00 [facility] [id number] [place] [address] 56457- 6436 Nov, Chronic pain G89.29 [facility] [id number] [place] [address] 49351 2546 Nov, Chronic pain G89.29 [facility] [id number] [place] [address] 59062- 1929 Oct, Chronic pain G89.29 [facility] [id number] [place] [address] 71650- 5198 Oct, UTI symptoms R39.9 [facility] [id number] [place] [address] 63340- 8126 Oct, Chronic pain G89.29 [facility] [id number] [place] [address] 87420- 3120 Oct, Chronic pain G89.29 [facility] [id number] [place] [address] 48493- 6585 Oct, Chronic pain G89.29 [facility] [id number] [place] [address] 24475- 4880 Oct, Right upper quadrant abdominal pain R10.11 [facility] [id number] [place] [address] 71308- 2282 Oct, Chronic pain G89.29 [facility] [id number] [place] [address] 44060 2542 Oct, [facility] [id number] [place] [address] 47589- 9620 September, Chronic pain G89.29 [facility] [id number] [place] [address] 11255- 2860 September, Dysuria R30.0 and Urinary tract infection without hematuria , site unspecified N39.0 [place] [id number] [address] September, [facility] [id number] [place] [address] 20535- 4345 September, Dysuria R30.0 [facility] [id number] [address] September, Chronic pain G89.29 [facility] [id number] [place] [id number] 2547 September, Chronic pain G89.29 and Essential hypertension I10 [facility] [id number] [place] [address] 53362- 8256 September, [facility] [id number] [place] [address] 92805- 2384 September, [facility] [id number] [place] [address] 27533- 5077 September, [facility] [id number] [place] [address] 09905- 2970 Aug, UTI symptoms R39.9 [facility] [id number] [place] [address], [place] [address]- [address] Aug, Dysuria R30.0 [facility] [id number] [place] [address] 71538- 6028 Aug, [facility] [id number] [place] [address] 85785- 3579 Aug, [facility] [id number] [address] Aug, [facility] [id number] [place] [address] 57588- 2548 Aug, Chronic pain G89.29 [facility] [id number] [place] [address] Aug, Dysthymia F34.1 [facility] [id number] [address] Aug, Conjunctivitis, unspecified conjunctivitis type, unspecified laterality H10.9 [facility] [id number] [address] 31 Jul, 2015 Chronic pain G89.29 ; Back pain M54.9 ; Tobacco abuse Z72.0 and Weight decrease R63.4 [facility] [id number] [place] [address] 61765- 6390 30 Jul, 2015 [facility] [id number] [place] [address] 51493- 0574 30 Jul, 2015 [facility] [id number] [place] [address] 68330- 5901 24 Jul, 2015 Chronic pain G89.29 [facility] [id number] [address] 0278 22 Jul, 2015 [facility] [address] [address] 8835 21 Jul, 2015 [facility] [address] [address] 6483 18 Jul, 2015 [facility] [address] [address] 0099 17 Jul, 2015 [facility] [address] [address] 5924 17 Jul, 2015 Chronic pain G89.29 [facility] [address] [address] 4923 16 Jul, 2015 Chronic pain G89.29 [facility] [id number] [place] [address]- 8986 15 Jul, 2015 [facility] [id number] [address] 3602 10 Jul, 2015 [facility] [id number] [address] 8605 Jul, [facility] [id number] [place] [address] 40094- 3845 Jul, [facility] [address] [address]- 4652 Jun, [facility] [id number] [place] [address] 12699- 1676 Jun, Depression, unspecified depression type F32.9 [facility] [address] [address]- 5905 Jun, Pain in right knee M25.561 [address] [place] 78338- 5567 Jun, Chronic pain G89.29 ; Back pain M54.9 ; Bone pain M89.8X9 and Weight loss R63.4 [place] [address] 13859- 6268 Jun, [facility] [id number] [place] [address] 24838- 7920 May, [place] [id number] [place] [address] 07760- 4618 May, UTI symptoms R39.9 ; Pain in right knee M25.561 ; Right low back pain, with sciatica presence unspecified M54.5 ; Right foot pain M79.671 ; Hypokalemia E87.6 and Screening, lipid Z13.220 [facility] [id number] [place] [address] 18127- 8174 May, [place] [address] 27657- 5481 May, [facility] [id number] [place] [address] 32106- 9311 Mar, [facility] [id number] [place] [address] 93160- 9738 Mar, [facility] [id number] [place] [address] 17173- 1791 Mar, Hypokalemia E87.6 [facility] [id number] [place] [address] 89487- 8621 16 Mar, 2015 Encounter for immunization Z23 ; Pain in right leg M79.604 ; Pain in right knee M25.561 and Hypokalemia E87.6 [facility] [id number] [place] [address] 32701- 6446 Jan, [facility] [id number] [place] [address] 12405- 3122 Jan, [facility] [id number] [place] [address] 60903- 7566 Jan, Abdominal pain, generalized 789.07 [facility] [id number] [place] [address] 45181- 3254 Jan, Abdominal pain, generalized 789.07 [facility] [id number] [place] [address] 79970- 0735 Dec, [facility] [id number] [place] [address] 03305- 4928 Dec, [facility] [id number] [place] [address] 64601- 8422 Dec, [facility] [id number] [place] [address] 22167- 2973 Nov, Hallux valgus 735.0 and Hammertoe 735.4 [facility] [id number] [place] [address] 84997- 0566 Nov, [facility] [id number] [place] [address] 60449- 6891 Nov, Hallux valgus 735.0 and Hammer toe 735.4 [facility] [id number] [place] [address] 74067- 7799 Oct, [facility] [address] [facility] [id number] [address]- 9315 Oct, [facility] [id number] [address]- 5443 Oct, Pre-op evaluation V72.84 [facility] [id number] [address]- 1265 Oct, [facility] [id number] [place] [address] 51276- 0455 Oct, [facility] [address] [address]- 9225 September, [facility] [id number] [place] [address] 99592- 9666 September, [facility] [id number] [address]- 7589 September, Hallux valgus (acquired) 735.0 and Other hammer toe ( acquired) 735.4 [facility] [id number] [address]- 2587 Aug, [facility] [id number] [address]- 8633 Aug, [facility] [address] [address]- 0772 Jul, [facility] [id number] [address]- 1260 Jul, [facility] [id number] [address]- 2624 Jul, [facility] [address] [facility] [id number] [address]- 9173 Jul, [facility] [address] [facility] [id number] [address]- 8765 Jul, [facility] [address] [address]- 9366 Jul, [facility] [place] [facility] [address] [id number] [place] [address]- 8948 Jul, [facility] [place] [facility] [address] [id number] [place] [address]- 7895 Jul, [facility] [place] [facility] [address] [facility] [id number] [place] [address]- 3639 Jun, 2014 [facility] [place] [facility] [address] [id number] [place] [address]- 9551 Jun, 2014 [facility] [place] [facility] [address] [id number] [place] [address]- 8148 Jun, 2014 [facility] [place] [facility] [address] [id number] [place] [address]- 4815 Jun, 2014 [facility] [place] [facility] [address] [facility] [id number] [place] [address]- 2874 Jun, 2014 [facility] [place] [facility] [address] [id number] [place] [address]- 0884 Jun, [facility] [place] [facility] [address] [id number] [place] [address]- 4057 Jun, 2014 [facility] [place] [facility] [address] [facility] [id number] [place] [address]- 1634 Jun, [facility] [place] [facility] [address] [facility] [id number] [place] [address]- 6344 Jun, [facility] [place] [facility] [address] [facility] [id number] [place] [address]- 2387 Jun, [facility] [place] [facility] [address] [id number] [place] [address]- 4793 May, [facility] [place] [facility] [address] [facility] [id number] [place] 5591 May, [facility] [place] [facility] [address] [id number] [place] [address]- 8807 May, [facility] [place] [facility] [address] [id number] [place] [address]- 4421 May, [facility] [place] [facility] [address] [id number] [place] [address]- 6732 May, [facility] [place] [facility] [address] [id number] [place] [address]- 4958 May, [facility] [place] [facility] [address] [id number] [place] [address]- 2464 May, [facility] [address] [id number] [place] [address]- 5549 May, [facility] [place] [facility] [address] [id number] [place] [address]- 7463 May, [facility] [place] [facility] [address] [id number] [place] [address]- 8612 May, [facility] [address] [id number] [place] [address]- 6158 May, [facility] [place] [facility] [address] [id number] [place] [address]- 1581 May, [facility] [place] [facility] [address] [id number] [place] [address]- 8382 May, [facility] [place] [facility] [address] [id number] [place] [address]- 3031 May, [facility] [place] [facility] [address] [id number] [place] [address]- 8980 May, [facility] [place] [facility] [address] [id number] [place] [address]- 3227 May, [facility] [place] [facility] [address] [id number] [place] [address]- 5322 May, [facility] [place] [facility] [address] [id number] [place] [address]- 1227 May, [facility] [place] [facility] [address] [id number] [place] [address]- 1407 Apr, [facility] [place] [facility] [address] [id number] [place] [address]- 7249 Apr, [facility] [place] [facility] [address] [id number] [place] 4605 Apr, [facility] [place] [facility] [address] [id number] [place] [address]- 2522 Apr, [facility] [place] [facility] [address] [id number] [place] [address]- 0376 Apr, [facility] [place] [facility] [address] [id number] [place] [address]- 5310 Apr, [facility] [place] [facility] [address] [id number] [place] [address]- 9636 Apr, [facility] [place] [facility] [address] [id number] [place] [address]- 0197 Apr, [facility] [place] [facility] [address] [id number] [place] [address]- 5242 Apr, [facility] [place] [facility] [address] [id number] [place] [address]- 9351 Mar, [facility] [place] [facility] [address] [id number] [place] [address]- 8742 Mar, [facility] [place] [facility] [address] [id number] [address]- 6897 Mar, [facility] [place] [facility] [address] [id number] [place] [address]- 6813 Mar, [facility] [place] [facility] [address] [id number] [place] [address]- 1924 Mar, [facility] [place] [facility] [address] [id number] [place] [address]- 2407 Feb, [facility] [place] [facility] [address] [id number] [place] [address]- 5279 Feb, [facility] [place] [facility] [address] [id number] [place] [address]- 9536 Feb, 2013 [facility] [place] [facility] [address] [id number] [place] [address]- 5341 Feb, 2013 [facility] [place] [facility] [address] [id number] [place] 8006 Feb, 2013 [facility] [place] [facility] [address] [id number] [place] [address]- 9480 Feb, 2013 [facility] [place] [facility] [address] [id number] [place] [address]- 8957 Feb, 2013 [facility] [place] [facility] [address] [id number] [place] [address]- 2097 Feb, 2013 [facility] [place] [facility] [address] [id number] [place] [address]- 0054 Feb, 2013 [facility] [place] [facility] [address] [id number] [place] [address]- 5392 Feb, 2013 [facility] [place] [facility] [address] [id number] [place] [address]- 5682 Feb, 2013 [facility] [place] [facility] [address] [id number] [place] [address]- 9997 Feb, 2013 [facility] [place] [facility] [address] [id number] [place] [address]- 3213 Feb, 2013 [facility] [place] [facility] [address] [id number] [place] [address]- 4639 Feb, 2013 [facility] [place] [facility] [address] [id number] [place] [address]- 8330 Feb, 2013 [facility] [place] [facility] [address] [id number] [place] [address]- 0504 Feb, 2013 [facility] [place] [facility] [address] [id number] [place] [address]- 4871 Jan, 2013 [facility] [place] [facility] [address] [id number] [place] [address]- 1134 23 Jan, 2013 [facility] [place] [facility] [address] [id number] [place] [address]- 1025 20 Jan, 2013 [facility] [place] [facility] [address] [id number] [place] [address]- 1556 19 Jan, 2013 [facility] [place] [facility] [address] [id number] [place] [address]- 8068 Jan, 2013 [facility] [place] [facility] [address] [id number] [place] [address]- 4695 Jan, 2013 [facility] [place] [facility] [address] [id number] [place] [address]- 9507 Jan, [facility] [place] [facility] [address] [id number] [place] [address]- 7372 Jan, [facility] [place] [facility] [address] [id number] [place] [address]- 0073 Dec, [facility] [place] [facility] [address] [id number] [place] [address]- 4097 Dec, [facility] [place] [facility] [address] [id number] [place] [address]- 5130 Nov, [facility] [place] [facility] [address] [id number] [place] [address]- 5673 Nov, [facility] [place] [facility] [address] [id number] [place] [address]- 1287 Nov, [facility] [place] [facility] [address] [id number] [place] [address]- 0535 Nov, [facility] [place] [facility] [address] [id number] [place] [address]- 6775 Nov, [facility] [place] [facility] [address] [id number] [place] [address]- 6904 Nov, [facility] [place] [facility] [address] [id number] [place] 3330 Nov, [facility] [place] [facility] [address] [id number] [place] [address]- 5608 Nov, [facility] [place] [facility] [address] [id number] [place] 0272 Nov, [facility] [place] [facility] [address] [id number] [place] 9182 Oct, [facility] [place] [facility] [address] [id number] [place] [address]- 5868 Oct, [facility] [place] [facility] [address] [id number] [place] [address]- 3579 Oct, [facility] [place] [facility] [address] [id number] [place] [address]- 0491 Oct, [facility] [place] [facility] [address] [id number] [place] [address]- 7940 Oct, [facility] [place] [facility] [address] [id number] [place] [address]- 2502 Oct, [facility] [place] [facility] [address] [id number] [place] [address]- 8295 September, [facility] [place] [facility] [address] [id number] [place] [address]- 0550 September, [facility] [place] [facility] [address] [id number] [place] [address]- 4139 September, [facility] [place] [facility] [address] [id number] [place] [address]- 1205 September, [facility] [place] [facility] [address] [id number] [place] [address]- 6730 September, [facility] [place] [facility] [address] [id number] [place] [address]- 0984 September, [facility] [place] [facility] [address] [id number] [place] [address]- 1753 September, [facility] [place] [facility] [address] [id number] [place] [address]- 9466 September, [facility] [place] [facility] [address] [id number] [place] [address]- 2410 September, [facility] [place] [facility] [address] [id number] [place] [address]- 6253 September, [facility] [place] [facility] [address] [id number] [place] [address]- 3969 September, [facility] [place] [facility] [address] [id number] [place] [address]- 9972 September, [facility] [place] [facility] [address] [id number] [place] [address]- 4247 September, [facility] [place] [facility] [address] [id number] [place] [address]- 4328 September, [facility] [place] [facility] [address] [id number] [place] [address]- 9482 September, [facility] [place] [facility] [address] [id number] [place] [address]- 3339 September, [facility] [place] [facility] [address] [id number] [place] [address]- 5503 September, [facility] [place] [facility] [address] [id number] [place] [address]- 3050 September, [facility] [place] [facility] [address] [id number] [place] [address]- 2914 September, [facility] [place] [facility] [address] [id number] [place] [address]- 3493 September, [facility] [place] [facility] [address] [id number] [place] [address]- 8137 Aug, [facility] [place] [facility] [address] [id number] [place] [address]- 6197 Aug, [facility] [place] [facility] [address] [id number] [place] [address]- 9417 Aug, [facility] [place] [facility] [address] [id number] [place] [address]- 4372 Aug, 2013 [facility] [place] [facility] [address] [id number] [place] [address]- 6079 18 Aug, 2013 [facility] [place] [facility] [address] [id number] [place] [address]- 2872 18 Aug, 2013 [facility] [place] [facility] [address] [id number] [place] [address]- 7777 16 Aug, 2013 [facility] [place] [facility] [address] [id number] [place] [address]- 8580 16 Aug, 2013 [facility] [place] [facility] [address] [id number] [place] [address]- 6545 15 Aug, 2013 [facility] [place] [facility] [address] [id number] [place] [address]- 1192 15 Aug, 2013 [facility] [place] [facility] [address] [id number] [place] [address]- 6346 14 Aug, 2013 [facility] [place] [facility] [address] [id number] [place] [address]- 1883 Aug, [facility] [place] [facility] [address] [id number] [place] [address]- 3940 Aug, [facility] [place] [facility] [address] [id number] [place] [address]- 9759 Aug, [facility] [place] [facility] [address] [id number] [place] [address]- 8283 Aug, [facility] [place] [facility] [address] [id number] [address]- 1599 Jul, [facility] [place] [facility] [address] [id number] [place] [address]- 7938 Jul, [facility] [place] [facility] [address] [id number] [place] [address]- 3080 Jul, [facility] [place] [facility] [address] [id number] [place] [address]- 4655 Jul, [facility] [place] [facility] [address] [id number] [place] [address]- 7218 20 Jul, 2013 [facility] [place] [facility] [address] [id number] [place] [address]- 5358 20 Jul, 2013 [facility] [place] [facility] [address] [id number] [place] [address]- 4154 18 Jul, 2013 [facility] [place] [facility] [address] [id number] [place] [address]- 6247 18 Jul, 2013 [facility] [place] [facility] [address] [id number] [place] [address]- 5944 Jul, [facility] [place] [facility] [address] [id number] [place] [address]- 3337 Jul, [facility] [place] [facility] [address] [id number] [place] [address]- 7414 Jul, [facility] [place] [facility] [address] [id number] [place] [address]- 4637 04 Jul, 2013 [facility] [place] [facility] [address] [id number] [place] [address]- 4937 Jul, [facility] [place] [facility] [address] [id number] [place] [address]- 2320 Jul, [facility] [place] [facility] [address] [facility] [id number] [place] [address]- 9080 Jul, [facility] [place] [facility] [address] [id number] [place] [address] 18 Jun, 2013 [facility] [place] [facility] [address] [id number] [place] [address] 18 Jun, 2013 [facility] [place] [facility] [address] [id number] [place] [address] 13 Jun, 2013 [facility] [place] [facility] [address] [id number] [place] [address] 13 Jun, 2013 [facility] [place] [facility] [address] [id number] [place] [address] Jun, [facility] [place] [facility] [address] [id number] [place] [address] Jun, [facility] [place] [facility] [address] [id number] [place] [address] May, [facility] [place] [facility] [address] [id number] [place] [address] May, [facility] [place] [facility] [address] [id number] [place] [address] May, [facility] [place] [facility] [address] [id number] [place] [address] May, [facility] [place] [facility] [address] [id number] [place] [address] May, [facility] [place] [facility] [address] [id number] [place] [address] May, [facility] [place] [facility] [address] [id number] [place] [address] May, [facility] [place] [facility] [address] [id number] [place] [address] May, [facility] [place] [facility] [address] [id number] [place] [address] May, [facility] [place] [facility] [address] [id number] [address] May, [facility] [place] [facility] [address] [id number] [place] [address] May, [facility] [place] [facility] [address] [id number] [place] [address] May, [facility] [place] [facility] [address] [id number] [place] [address] May, [facility] [place] [facility] [address] [id number] [place] [address] May, [facility] [place] [facility] [address] [id number] [place] [address] May, [facility] [address] [id number] [place] [address] Apr, [facility] [place] [facility] [address] [id number] [place] [address] Apr, [facility] [address] [id number] [place] [address] Apr, [facility] [place] [facility] [address] [id number] [place] [address] Apr, [facility] [address] [id number] [place] [address] Apr, [facility] [address] [id number] [place] [address] Apr, [facility] [address] [id number] [place] [address]99 Apr, [facility] [address] [id number] [place] [address] Apr, [facility] [address] [id number] [place] [address] Apr, [facility] [address] [id number] [place] [address] Apr, [facility] [address] [id number] [place] [address] Mar, [facility] [place] [facility] [address] [id number] [place] [address] Mar, [facility] [place] [facility] [address] [id number] [place] [address] Mar, [facility] [place] [facility] [address] [id number] [place] [address] Mar, [facility] [place] [facility] [address] [id number] [place] [address] Mar, [facility] [place] [facility] [address] [id number] [place] [address] Mar, [facility] [place] [facility] [address] [id number] [place] [address] Mar, [facility] [place] [facility] [address] [id number] [place] [address] Mar, [facility] [place] [facility] [address] [id number] [place] [address] Mar, [facility] [place] [facility] [address] [id number] [place] [address]- [address] Mar, [facility] [place] [facility] [address] [id number] [place] [address] Mar, [facility] [place] [facility] [address] [id number] [place] [address] Mar, [facility] [place] [facility] [address] [id number] [place] [address]- [address] Mar, [facility] [place] [facility] [address] [id number] [place] [address]- [address] Mar, [facility] [place] [facility] [address] [id number] [place] [address] Mar, [facility] [place] [facility] [address] [id number] [place] [address]- [address] 18 Mar, 2013 [facility] [place] [facility] [address] [id number] [place] [address]- [address]74 14 Mar, 2013 [facility] [place] [facility] [address] [id number] [place] [address]- [address] 14 Mar, 2013 [facility] [place] [facility] [address] [id number] [place] [address]- 267[address] Mar, [facility] [place] [facility] [address] [id number] [place] [address] Mar, [facility] [place] [facility] [address] [id number] [address] Mar, [facility] [place] [facility] [address] [id number] [place] [address]- 67[address] Mar, [facility] [place] [facility] [address] [id number] [place] [address] Mar, [facility] [place] [facility] [address] [id number] [place] [address] 9257 Feb, [facility] [place] [facility] [address] [id number] [place] [address] Feb, [facility] [place] [facility] [address] [id number] [place] [address]- [address] Feb, [facility] [place] [facility] [address] [id number] [place] [address] 16 Feb, 2013 [facility] [place] [facility] [address] [id number] [place] [address]- [address] 15 Feb, 2013 [facility] [place] [facility] [address] [id number] [place] [address] Feb, [facility] [place] [facility] [address] [id number] [place] [address] Feb, [facility] [place] [facility] [address] [id number] [place] [address] Feb, [facility] [place] [facility] [address] [id number] [place] [address] Feb, [facility] [facility] [address] [id number] [place] [address] Feb, [facility] [place] [facility] [address] [id number] [place] [address] 30 Jan, 2013 [facility] [place] [facility] [address] [id number] [place] [address] 26 Jan, 2013 [facility] [place] [facility] [address] [id number] [place] [address] 9346 24 Jan, 2013 [facility] [place] [facility] [address] [id number] [place] [address] Jan, [facility] [address] [id number] [place] [address] 6[address] Jan, [facility] [address] [id number] [place] [address] 8396 Dec, [facility] [address] [id number] [place] [address]- 0525 Dec, [facility] [address] [id number] [place] [address] 0912 Dec, [facility] [address] [id number] [place] [address]- 5967 Dec, [facility] [address] [id number] [place] [address] 54[address] Dec, [facility] [address] [id number] [place] [address] 7792 Dec, [facility] [address] [id number] [place] [address]- 0238 Dec, [facility] [address] [id number] [place] [address] 9414 Nov, [facility] [address] [id number] [place] [address] 6358 Nov, [facility] [address] [id number] [place] [address]- 7421 Nov, [facility] [address] [id number] [place] [address]- 5069 Nov, [facility] [place] [facility] [address] [id number] [place] [address]- 6782 Nov, [facility] [place] [facility] [address] [id number] [place] [address]- 9215 Oct, [facility] [address] [id number] [place] [address]- 5186 Oct, [facility] [address] [id number] [place] [address]- 6061 Oct, [facility] [address] [id number] [place] [address]- 6466 September, [facility] [address] [id number] [place] [address]- 5626 September, [facility] [address] [id number] [place] [address]- 3156 September, [facility] [address] [id number] [place] [address]- 7362 September, [facility] [address] [id number] [place] [address]- 6816 September, [facility] [address] [id number] [place] [address]- 8764 September, [facility] [address] [id number] [place] [address]- 4386 September, [facility] [address] [id number] [place] [address]- 9789 Aug, [facility] [address] [id number] [place] [address]- 8469 Aug, [facility] [address] [id number] [place] [address]- 1166 Aug, [facility] [facility] [address] [id number] [place] [address]- 1137 29 Jul, 2012 [facility] [address] [id number] [place] [address]- 8499 Jul, [facility] [place] [facility] [address] [id number] [place] [address]- 8726 Jul, [facility] [place] [facility] [address] [id number] [place] [address]- 9613 Jul, [facility] [place] [facility] [address] [id number] [place] [address]- 5823 18 Jul, 2012 [facility] [address] [id number] [place] [address] 2546 18 Jul, 2012 [facility] [address] [id number] [place] [address] 2546 Jul, [facility] [address] [id number] [place] [address]- 4126 28 Jun, 2012 [facility] [address] [id number] [place] [address] 2540 27 Jun, 2012 [facility] [address] [id number] [place] [address]- 6546 Jun, [facility] [address] [id number] [place] [address]- 2546 Jun, [facility] [address] [id number] [place] [address]- 2694 15 Jun, 2012 [facility] [address] [id number] [place] [address]- 2549 15 Jun, 2012 [facility] [address] [id number] [place] [address]- 6799 Jun, [facility] [address] [id number] [place] [address]- 1338 Jun, [facility] [address] [id number] [place] [address] 2546 Jun, [facility] [address] [id number] [place] [address] 2544 Jun, [facility] [address] [id number] [place] [address]- 7321 May, [facility] [address] [id number] [place] [address] 2546 May, [facility] [address] [id number] [place] [address]- 8737 May, [facility] [facility] [address] [id number] [place] [address]- 9424 17 May, 2012 [facility] [address] [id number] [place] [address]- 4830 15 May, 2012 [facility] [address] [id number] [place] [address]- 8863 07 May, 2012 [facility] [address] [id number] [place] [address]- 0872 31 Apr, 2012 [facility] [address] [id number] [place] [address]- 2517 31 Apr, 2012 [facility] [address] [id number] [place] [address]- 4669 Apr, [facility] [address] [id number] [place] [address]- 9507 Apr, [facility] [address] [id number] [place] [address]- 2949 Apr, [facility] [address] [id number] [place] [address]- 1765 Apr, [facility] [address] [id number] [place] [address]- 9013 Apr, [facility] [address] [id number] [place] [address]- 3352 Mar, [facility] [address] [id number] [place] [address]- 2583 29 Mar, 2012 [facility] [address] [id number] [place] [address]- 7989 Mar, [facility] [address] [id number] [place] [address]- 8316 Mar, [facility] [address] [id number] [place] [address] Mar, [facility] [address] [id number] [place] [address]- 2496 Mar, [facility] [address] [id number] [place] [address]- 2990 18 Mar, 2012 [facility] [address] [id number] [place] [address]- 9467 Mar, [facility] [address] [id number] [place] [address]- 2666 Mar, [facility] [address] [id number] [place] [address]- 6410 Mar, [facility] [address] [id number] [place] [address]- 1626 Mar, [facility] [facility] [address] [id number] [place] [address]- 1230 Mar, [facility] [address] [facility] [id number] [address]- 4212 Mar, [facility] [address] [id number] [place] [address]- 6030 Mar, [facility] [address] [id number] [place] [address]- 9585 Mar, [facility] [address] [facility] [id number] [place] [address]- 6510 Mar, [facility] [address] [id number] [place] [address]- 0346 Mar, [facility] [address] [id number] [place] [address]- 2715 Feb, [facility] [address] [id number] [place] [address]- 0450 Feb, [facility] [address] [facility] [id number] [place] [address]- 9647 Feb, [facility] [address] [facility] [id number] [place] [address]- 2338 Feb, [facility] [address] [id number] [place] [address]- 6433 16 Feb, 2012 [facility] [address] [id number] [place] [address]- 4756 16 Feb, 2012 [facility] [address] [id number] [place] [address]- 4666 Feb, [facility] [address] [id number] [place] [address]- 3966 Feb, [facility] [address] [id number] [place] [address]- 6900 05 Feb, 2012 [facility] [address] [id number] [place] [address]- 5992 04 Feb, 2012 [facility] [address] [id number] [place] [address]- 5503 02 Feb, 2012 [facility] [address] [id number] [place] [address]- 8607 27 Jan, 2012 [facility] [facility] [address] [id number] [place] [address]- 7097 25 Jan, 2012 [facility] [address] [id number] [place] [address]- 7523 13 Jan, 2012 [facility] [facility] [address] [id number] [place] [address]- 8540 12 Jan, 2012 [facility] [address] [id number] [place] [address]- 2544 07 Jan, 2012 [facility] [address] [id number] [place] [address]- 2794 31 Dec, 2011 [facility] [address] [id number] [place] [address] 2546 24 Dec, 2011 [facility] [address] [id number] [place] [address]- 4334 22 Dec, 2011 [facility] [place] [facility] [address] [id number] [place] [address]- 4398 Dec, [facility] [address] [id number] [place] [address]- 7872 Dec, [facility] [address] [id number] [place] [address]- 7826 Dec, [facility] [address] [id number] [place] [address]- 6428 Dec, [facility] [address] [id number] [place] [address]- 1586 Dec, [facility] [address] [id number] [place] [address]- 9278 Nov, [facility] [place] [address] [id number] [place] [address]- 6298 Nov, [facility] [place] [facility] [address] [id number] [place] [address]- 8752 Nov, [facility] [place] [address] [id number] [place] [address]- 6984 Nov, [facility] [place] [address] [id number] [place] [address]- 8543 Nov, [facility] [place] [facility] [address] [id number] [place] [address]- 7383 Oct, [facility] [place] [facility] [address] [id number] [place] [address]- 3485 Oct, [facility] [place] [facility] [address] [id number] [place] [address]- 7430 September, [facility] [place] [facility] [address] [id number] [place] [address]- 7824 September, [facility] [place] [facility] [address] [id number] [place] [address]- 5345 September, [facility] [place] [address] [id number] [place] [address]- 0900 September, [facility] [place] [facility] [address] [id number] [place] [address]- 2544 September, [facility] [address] [id number] [place] [address]- 6669 September, [facility] [address] [id number] [place] [address]- 3636 September, [facility] [address] [id number] [place] [address]- 2133 September, [facility] [address] [id number] [place] [address]- 9399 September, [facility] [address] [id number] [place] [address]- 8875 September, [facility] [address] [id number] [place] [address]- 6704 September, [facility] [address] [id number] [place] [address]- 7788 September, [facility] [address] [id number] [place] [address]- 6642 September, [facility] [address] [id number] [place] [address]- 5509 September, [facility] [address] [id number] [place] [address]- 7909 Aug, [facility] [address] [id number] [place] [address]- 0436 Aug, [facility] [address] [id number] [place] [address]- 3010 Aug, [facility] [place] [facility] [address] [id number] [place] [address]- 7481 Aug, [facility] [address] [id number] [place] [address]- 4844 Jul, [facility] [address] [id number] [place] [address]- 5340 Jul, [facility] [place] [facility] [address] [id number] [place] [address]- 3311 13 Jul, 2011 [facility] [address] [id number] [place] [address]- 2795 28 Jun, 2011 [facility] [address] [facility] [id number] [place] [address] Jun, [facility] [place] [facility] [address] [id number] [place] [address]- 2976 13 Jun, 2011 [facility] [address] [id number] [place] [address]- 7064 Jun, [facility] [place] [facility] [address] [id number] [place] [address]- 6646 07 Jun, 2011 [facility] [address] [id number] [place] [address]- 5548 Jun, [facility] [address] [id number] [place] [address]- 1735 03 Jun, 2011 [facility] [address] [id number] [place] [address]- 9601 Jun, [facility] [address] [id number] [place] [address]- 2296 May, [facility] [place] [facility] [address] [id number] [place] [address]- 5096 May, [facility] [place] [facility] [address] [id number] [place] [address]- 0262 May, [facility] [place] [facility] [address] [id number] [place] [address]- 2489 May, [facility] [place] [facility] [address] [id number] [place] [address]- 8226 May, [facility] [place] [facility] [address] [id number] [place] [address]- 8118 May, [facility] [place] [facility] [address] [id number] [place] [address]- 1005 May, [facility] [address] [id number] [place] [address]- 7264 May, [facility] [place] [facility] [address] [facility] [id number] [place] [address]- 5539 May, [facility] [place] [facility] [address] [facility] [id number] [place] [address]- 3609 May, [facility] [place] [facility] [address] [id number] [place] [address]- 2401 May, [facility] [address] [facility] [id number] [place] [address], [place] [address]- 8984 May, [facility] [place] [facility] [address] [facility] [id number] [place] [address]- 5966 May, [facility] [id number] [address]- 6293 May, [facility] [place] [facility] [address] [facility] [id number] [place] [address]- 5219 Apr, [facility] [place] [facility] [address] [id number] [place] [address]- 5264 Apr, [facility] [place] [facility] [address] [id number] [place] [address]- 6788 Apr, [facility] [place] [facility] [address] [facility] [id number] [place] [address]- 4563 Mar, [facility] [place] [facility] [address] [facility] [id number] [place] [address]- 1191 Mar, [facility] [place] [facility] [address] [facility] [id number] [place] [address]- 5332 Feb, [facility] [place] [facility] [address] [facility] [id number] [place] [address]- 3746 Feb, [facility] [place] [facility] [address] [id number] [place] [address]- 5442 Feb, [facility] [place] [facility] [address] [id number] [place] [address]- 2564 20 Feb, 2011 [facility] [place] [facility] [address] [id number] [place] [address]- 8906 13 Feb, 2011 [facility] [place] [facility] [address] [id number] [place] [address]- 7146 28 Apr, 2010 [facility] [place] [facility] [address] [id number] [place] [address] 2546 22 Apr, 2010 [facility] [place] [facility] [address] [id number] [place] [address] 2546 16 Apr, 2010 [facility] [place] [facility] [address] [id number] [place] [address]- 5076 15 Apr, 2010 [facility] [place] [facility] [address] [id number] [place] [address]- 2152 15 Apr, 2010 [facility] [place] [facility] [address] [id number] [place] [address]- 0598 Apr, [facility] [place] [facility] [address] [id number] [place] [address]- 5796 24 Mar, 2010 [facility] [place] [facility] [address] [id number] [place] [address]- 4057 17 Mar, 2010 [facility] [place] [facility] [address] [id number] [place] [address]- 0645 17 Mar, 2010 [facility] [place] [facility] [address] [id number] [place] [address]- 4321 28 Feb, 2010 [facility] [place] [facility] [address] [id number] [place] [address] 2547 Feb, [facility] [place] [facility] [address] [id number] [place] [address] 2546 21 Feb, 2010 [facility] [place] [facility] [address] [id number] [place] [address]- 2546 15 Feb, 2010 [facility] [place] [facility] [address] [id number] [place] [address]- 0038 Dec, [facility] [address] [facility] [id number] [place] [address]- 4900 Dec, [facility] [address] [id number] [address]- 4666 Oct, [facility] [address] [id number] [address]- 2060 Mar, [facility] [address] [id number] [address]- 2838 Mar, [facility] [address] [facility] [id number] [place] [address]- 1377 September, IMMUNIZATIONS No Known Immunizations SOCIAL HISTORY Never Assessed REASON FOR VISIT Rx updated per Lab result PLAN OF CARE VITAL SIGNS MEDICATIONS Medication Instructions Dosage Frequency Start Date End Date Duration Status Bentyl 20 mg Orally Four times a day 1 tablet 6h Active RESULTS No Results PROCEDURES No Known [...]
--- OUTSIDE RECORDS SUMMARY | 2017-11-27 15:39 | XMS REPORT ---
Author Author VALERIE ZAVALA [facility] Address [address] [place] [address] Care Team Providers Care String Cutter Name Role Phone VALERIE ZAVALA Unavailable PROBLEMS Type Condition ICD9-CM Code BUF82-TV Code Onset Dates Condition Status SNOMED Code Problem Generalized anxiety disorder F41.1 Active 40828419 Problem Hypokalemia E87.6 Active 035221567 Problem Right low back pain, with sciatica presence unspecified M54.5 Active 708222664 Problem Post-traumatic stress disorder, chronic F43.12 Active 23266303 Problem Pain in right knee M25.561 Active 81438262 Problem Gastroesophageal reflux disease without esophagitis K21.9 Active 743728753 Problem UTI symptoms R39.9 Active 22011045 Problem Essential hypertension I10 Active 49342593 Problem Anxiety F41.9 Active 13417495 Problem Neuropathy G62.9 Active 325316881 Problem Other chronic pain G89.29 Active 39183585 Problem Generalized abdominal pain R10.84 Active 258042810 Problem Chronic pain G89.29 Active 02052892 Problem Back pain M54.9 Active 071835491 Problem Right foot pain M79.671 Active 85154679 Problem Panic attacks F41.0 Active 856123407 Problem Other emphysema J43.8 Active 90585480 Problem Kidney stones N20.0 Active 07207073 Problem Renal calculus, right N20.0 Active 59230808 Problem Weight decrease R63.4 Active 404982817 Problem Tobacco abuse Z72.0 Active 80719988 Problem Bone pain M89.8X9 Active 01356830 Problem Depression, unspecified depression type F32.9 Active 51999511 Problem Insomnia, unspecified type G47.00 Active 535394772 Problem Pulmonary emphysema, unspecified emphysema type J43.9 Active 44769496 Problem Right upper quadrant abdominal pain R10.11 Active 155956162 Problem Weight loss R63.4 Active 605866128 ALLERGIES No Information ENCOUNTERS Encounter Location Date Diagnosis [facility] [place] [id number] [place] [address] 43018- 9244 Nov, [facility] [place] [id number] [place] [address] 53799- 7588 Oct, [facility] [place] [id number] [place] [address] 32194- 9143 Oct, [facility] [place] [address] 65759- 4897 Oct, Medicare welcome exam Z00.00 [facility] [place] [address] 98224- 0090 September, Back pain M54.9 and Right anterior knee pain M25.561 [facility] [place] [address] 71557- 2100 September, [facility] [place] [address] 01233- 6732 September, [facility] [place] [id number] [place] [address] 04868- 1964 September, Essential hypertension I10 [facility] [place] [id number] [place] [address] 08514- 7940 September, [facility] [place] [id number] [place] [address] 59708- 6920 September, RLQ abdominal pain R10.31 ; Low back pain M54.5 and Other chronic pain G89.29 [facility] [place] [id number] [place] [address] 92764- 7419 Aug, Medicare welcome exam Z00.00 [facility] [place] [id number] [place] [address] 99225- 5172 Aug, [facility] [place] [id number] [place] [address] 83035- 9238 Aug, Acute pyelonephritis N10 and Medicare welcome exam Z00.00 [facility] [address] [address] Aug, Dysuria R30.0 and Acute pyelonephritis N10 [facility] [place] [id number] [place] [address] 42982- 4533 Aug, [facility] [place] [id number] [place] [address] 59805- 4166 Aug, [facility] [place] [id number] [place] [address] 61895- 7169 Aug, [facility] [place] [id number] [place] [address] 09777- 0739 Aug, [facility] [place] [id number] [place] [address] 33483- 8234 Jul, [facility] [place] [id number] [place] [address] 52388- 6467 Jul, Renal calculus, right N20.0 and Medicare welcome exam Z00.00 [facility] [id number] [place] [address] 18210 -7548 Jul, Dysuria R30.0 and Renal calculus, right N20.0 [facility] [place] [id number] [place] [address] 82490- 8414 Jul, Medicare welcome exam Z00.00 [facility] [place] [id number] [place] [address] 66922- 1239 Jun, Gastroesophageal reflux disease without esophagitis K21.9 and Generalized abdominal pain R10.84 [facility] [place] [id number] [place] [address] 62274- 1408 Jun, Medicare welcome exam Z00.00 [facility] [place] [id number] [place] [address] 19769- 3566 Jun, [facility] [place] [id number] [place] [address] 88270- 6970 Jun, Medicare welcome exam Z00.00 and Encounter for screening mammogram for malignant neoplasm of breast Z12.31 [place] [id number] [place] [address] 71332- 4033 02 Jun, 2017 Chronic pain G89.29 [place] [facility] [id number] [place] [address] 82023- 4976 May, [place] [address] 95213- 1508 May, Pelvic pain R10.2 [place] [id number] [place] [address] 05144- 1448 May, Pelvic pain R10.2 [facility] [place] [id number] [place] [address] 45759 -4332 May, Renal calculus, right N20.0 [place] [address] 94340- 0041 May, Hematuria, unspecified type R31.9 and Nephrolithiasis N20.0 [facility] [id number] [place] [address] 43119 -8240 May, Dysuria R30.0 and Nephrolithiasis N20.0 [place] [id number] [place] [address] 63681- 2032 May, [facility] [id number] [place] [address] 45428 -3834 May, Abdominal pain R10.9 and Kidney stone N20.0 [place] [id number] [place] [address] 59376- 3314 May, [place] [address] 30348- 0090 May, Chronic pain G89.29 and Panic attacks F41.0 [place] [id number] [place] [address] 32735- 2314 May, Urinary tract infection without hematuria, site unspecified N39.0 [facility] [place] [address], [place] [address]- 9819 Apr, Right lower quadrant abdominal pain R10.31 and Abnormal serum lipase level R74.8 [facility] [place] [address], [place] [address]- 4826 Apr, Recurrent urinary tract infection N39.0 [facility] [place] [address] [place] [address] 52008- 3802 Apr, UTI symptoms R39.9 ; Recurrent urinary tract infection N39.0 and Pelvic pain R10.2 [place] [id number] [place] [address] 21066- 7276 Apr, Chronic pain G89.29 and Panic attacks F41.0 [facility] [place] [address] [place] [address] 57263- 4683 Apr, Dysuria R30.0 [facility] [place] [address] [place] [address] 31797- 2167 Apr, [facility] [place] [address] [place] [address] 80070- 6293 Apr, Dysuria R30.0 and Urinary tract infection without hematuria , site unspecified N39.0 [facility] [place] [address], [place] [address]- 4129 Mar, UTI symptoms R39.9 [facility] [place] [address], [place] [address]- 6985 Mar, [facility] [place] [id number] [place] [address] 40917- 0103 Mar, Panic attacks F41.0 and Chronic pain G89.29 [facility] [place] [address], [place] [address]- 1091 Mar, [facility] [place] [address] [place] [address] 75512- 1121 Mar, Dysuria R30.0 [facility] [place] [id number] [place] [address] 25834- 8964 Mar, Dysuria R30.0 [facility] [place] [id number] [place] [address] 23076- 5032 Feb, Chronic pain G89.29 ; Shortness of breath R06.02 ; Weight loss R63.4 ; Encounter for immunization Z23 ; Bone pain M89.8X9 ; Right anterior knee pain M25.561 and Cough R05 [place] [id number] [place] [address] 18655- 4381 Feb, Shortness of breath R06.02 [place] [id number] [place] [address] 69882- 2116 Feb, [place] [address] 65901- 6193 Feb, Panic attacks F41.0 and Chronic pain G89.29 [place] [id number] [place] [address] 78426- 8834 Feb, [place] [address] 61890- 9037 Feb, Panic attacks F41.0 ; Shortness of breath R06.02 and Encounter for immunization Z23 [place] [id number] [place] [address] 44099- 6539 Jan, [place] [address] 32111- 3163 15 Jan, 2017 Anxiety F41.9 and Chronic pain G89.29 [place] [address] 08557- 1699 Dec, Anxiety F41.9 and Chronic pain G89.29 [place] [id number] [place] [address] 12700- 3980 Nov, Chronic pain G89.29 [place] [id number] [place] [address] 82015- 1666 Nov, Anxiety F41.9 [facility] [place] [id number] [place] [address] 50902- 9661 Nov, Chronic pain G89.29 ; Essential hypertension I10 and Other emphysema J43.8 [facility] [place] [id number] [place] [address] 26390- 8519 Oct, Anxiety F41.9 [facility] [place] [id number] [place] [address] 85748- 6444 Oct, [facility] [place] [address] 16671- 0699 Oct, Chronic pain G89.29 [facility] [place] [id number] [place] [address] 05990- 4434 September, Recurrent UTI N39.0 ; Neuropathy G62.9 and Anxiety F41.9 [facility] [place] [id number] [place] [address] 60782- 9888 September, [facility] [place] [id number] [place] [address] 94883- 8278 September, Chronic pain G89.29 [facility] [place] [id number] [place] [address] 40466- 6830 September, [facility] [place] [id number] [place] [address] 66994- 5182 Aug, Post-traumatic stress disorder, chronic F43.12 ; Chronic urinary tract infection N39.0 ; Gastroesophageal reflux disease without esophagitis K21.9 ; Chronic pain G89.29 ; Essential hypertension I10 and Tobacco abuse Z72.0 [facility] [id number] [place] [address] 49662 -8991 Aug, [facility] [place] [id number] [place] [address] 43694- 9064 Aug, Chronic pain G89.29 [facility] [place] [address] [address]- 3285 18 Aug, 2016 Insomnia, unspecified type G47.00 [facility] [place] [address] [place] [address] 37011- 2260 13 Aug, 2016 [facility] [place] [address], [place] [address]- 9729 24 Jul, 2016 Chronic pain G89.29 [facility] [place] [address] [place] [address] 67494- 7775 Jul, [facility] [place] [address] [place] [address] 64149- 8730 Jul, [facility] [place] [address] [place] [address] 00294- 5192 20 Jul, 2016 [facility] [place] [address] [place] [address] 60570- 3313 15 Jul, 2016 Recurrent UTI (urinary tract infection) N39.0 [facility] [place] [address], [place] [address]- 7271 Jul, [facility] [place] [address] [place] [address] 52633- 4717 Jun, Chronic pain G89.29 [facility] [place] [address], [place] [address]- 3512 17 Jun, 2016 [facility] [place] [address], [place] [address]- 5154 Jun, [facility] [place] [address], [place] [address]- 7271 May, Chronic pain G89.29 [facility] [place] [address], [place] [address]- 8745 May, Weight loss R63.4 and Shortness of breath R06.02 [facility] [place] [address], [place] [address]- 9536 May, Chronic pain G89.29 ; Weight loss R63.4 and Tobacco abuse Z72.0 [facility] [place] [id number] [place] [address] 06589- 3283 May, [facility] [place] [id number] [place] [address] 63672- 2889 May, Hypoxia R09.02 [facility] [place] [id number] [place] [address] 70959- 1112 May, [facility] [place] [id number] [place] [address] 79858- 3258 May, Pulmonary emphysema, unspecified emphysema type J43.9 [facility] [address] 98344 -0769 May, [facility] [place] [id number] [place] [address] 82168- 3233 May, [place] [id number] [place] [address] 46501- 3340 May, [place] [id number] [place] [address] 11805- 4766 May, Chronic pain G89.29 ; Encounter for immunization Z23 ; Right anterior knee pain M25.561 and Cough R05 [place] [id number] [place] [address] 95817- 0685 Apr, Chronic pain G89.29 [place] [id number] [place] [address] 36754- 0117 Apr, [place] [id number] [place] [address] 15936- 2686 Apr, Generalized anxiety disorder F41.1 and Depression, unspecified depression type F32.9 [place] [id number] [place] [address] 07379- 1209 Apr, Chronic pain G89.29 ; Hypokalemia E87.6 and Insomnia, unspecified type G47.00 [place] [address] [place] [address] [place] [address]- 6557 16 Apr, 2016 [facility] [address] [facility] [id number] [place] [address]- 6413 Apr, Chronic pain G89.29 [facility] [address] [facility] [id number] [place] 2888 Apr, [facility] [address] [facility] [id number] [place] [address]- 7000 Mar, [facility] [address] [facility] [id number] [place] [address]- 2076 Mar, Insomnia, unspecified type G47.00 [facility] [address] [facility] [id number] [place] [address]- 7146 Mar, Chronic pain G89.29 [facility] [address] [place] [address]- 3014 Mar, [facility] [id number] [place] [address]- 1564 Feb, [facility] [id number] [place] [address]- 0091 Feb, [facility] [id number] [place] [address]- 5103 Feb, [facility] [id number] [place] [address]- 5749 Feb, [facility] [place] [facility] [address] [facility] [id number] [place] [address]- 8642 Feb, [facility] [place] [facility] [address] [facility] [id number] [place] [address]- 1336 29 Jan, 2016 [facility] [place] [facility] [address] [facility] [id number] [place] [address]- 1940 Jan, [facility] [place] [facility] [address] [id number] [place] [address]- 2403 20 Jan, 2016 [facility] [address], [place] [address]- 5510 13 Jan, 2016 [facility] [place] [address] [place] [address] 72918- 8031 12 Jan, 2016 [facility] [place] [address] [place] [address] 02394- 8954 07 Jan, 2016 Chronic pain G89.29 [facility] [place] [id number] [place] [address] 93850 2540 Jan, Chronic pain G89.29 and Fibromyalgia M79.7 [facility] [place] [id number] [place] [address] 19115- 5692 Dec, Depression, unspecified depression type F32.9 and Generalized anxiety disorder 300.02 [facility] [place] [address] [place] [address] 15172- 8054 Dec, Dysthymia F34.1 ; Insomnia, unspecified type G47.00 and Chronic pain G89.29 [facility] [place] [address] [address] Dec, Chronic pain G89.29 [facility] [place] [id number] [place] [address] 82621- 6348 Dec, Insomnia, unspecified type G47.00 [facility] [place] [address], [place] [address] Dec, Fibromyalgia M79.7 and Chronic pain G89.29 [facility] [place] [address], [place] [address] Dec, [facility] [place] [id number] [place] [address] 23546- 1135 Dec, [facility] [place] [id number] [place] [address] 20509- 6954 Dec, [facility] [place] [address] [place] [address] Dec, [facility] [place] [id number] [place] [address] 70511- 7715 Dec, Chronic pain G89.29 [facility] [place] [id number] [place] [address] 12288- 7072 Dec, [facility] [place] [id number] [place] [address] 20857- 4378 Dec, [facility] [place] [id number] [place] [address] 99424- 3485 Dec, [facility] [place] [id number] [place] [address] 12823- 6890 Dec, Chronic pain G89.29 and Dysthymia F34.1 [facility] [place] [id number] [place] [address] 67224- 9065 Nov, [facility] [place] [id number] [place] [address] 76853- 6219 Nov, Hypokalemia E87.6 and Chronic pain G89.29 [facility] [place] [id number] [place] [address] 76817- 6756 Nov, Back pain M54.9 and Pain in right knee M25.561 [facility] [place] [id number] [place] [address] 43129- 9079 Nov, [facility] [place] [id number] [place] [address] 30890- 9128 Nov, Chronic pain G89.29 [facility] [place] [id number] [place] [address] 70231- 2547 Nov, Chronic pain G89.29 ; Weight loss R63.4 ; Bone pain M89.8X9 and Insomnia, unspecified type G47.00 [facility] [place] [address] [place] [id number] [place] [address] 29593- 0777 Nov, Chronic pain G89.29 [facility] [place] [id number] [place] [address] 43676- 0898 Nov, Chronic pain G89.29 [facility] [place] [address] [facility] [id number], [place] [address] 2546 30 Oct, 2015 Chronic pain G89.29 [facility] [place] [id number] [place] [address] 44862 2546 Oct, UTI symptoms R39.9 [facility] [place] [id number] [place] [address] 66792 2546 Oct, Chronic pain G89.29 [facility] [place] [address] [facility] [id number] [place] [address] 81888 2546 Oct, Chronic pain G89.29 [facility] [place] [id number] [place] [address] 93142 2546 Oct, Chronic pain G89.29 [facility] [place] [id number] [place] [address] 30506- 1316 Oct, Right upper quadrant abdominal pain R10.11 [facility] [place] [id number] [place] [address] 46192 2546 Oct, Chronic pain G89.29 [facility] [place] [id number] [place] [address] 27669 2541 Oct, [facility] [place] [id number] [place] [address] 60254 254 September, Chronic pain G89.29 [facility] [place] [id number] [place] [address] 96873 2541 September, Dysuria R30.0 and Urinary tract infection without hematuria , site unspecified N39.0 [facility] [place] [id number] [place] [address] 79284- 6326 September, [facility] [place] [id number] [place] [address] 26552- 6956 September, Dysuria R30.0 [facility] [place] [id number] [place] [address] 28694- 2235 September, Chronic pain G89.29 [facility] [place] [address] [address] 4373 September, Chronic pain G89.29 and Essential hypertension I10 [facility] [place] [id number] [place] [address] 66751- 9876 September, [facility] [place] [id number] [place] [address] 55406- 6464 September, [facility] [place] [id number] [place] [address] 26104- 0501 September, [facility] [place] [id number] [place] [address] 53082- 6596 Aug, UTI symptoms R39.9 [facility] [place] [id number] [place] [address] 36667- 0737 Aug, Dysuria R30.0 [facility] [place] [id number] [place] [address] 09200- 0572 Aug, [facility] [place] [id number] [place] [address] 02693- 2218 Aug, [facility] [place] [id number] [place] [address] 79492- 6381 Aug, [facility] [place] [id number] [place] [address] 03387- 6150 Aug, Chronic pain G89.29 [facility] [place] [id number] [place] [address] 65429- 2992 Aug, Dysthymia F34.1 [facility] [place] [id number] [place] [address] 88223- 1451 Aug, Conjunctivitis, unspecified conjunctivitis type, unspecified laterality H10.9 [facility] [place] [address], [place] [address]- 0348 Jul, Chronic pain G89.29 ; Back pain M54.9 ; Tobacco abuse Z72.0 and Weight decrease R63.4 [facility] [place] [address] [facility] [id number] [place] [address]- 9992 30 Jul, 2015 [facility] [place] [address] [facility] [id number] [place] [address]- 9356 30 Jul, 2015 [facility] [place] [address] [facility] [id number] [place] [address]- 6649 24 Jul, 2015 Chronic pain G89.29 [facility] [place] [address] [facility] [id number] [place] [address]- 5644 22 Jul, 2015 [facility] [place] [address] [facility] [id number] [place] [address]- 9332 21 Jul, 2015 [facility] [place] [address] [facility] [id number] [place] [address]- 2313 18 Jul, 2015 [facility] [place] [address] [place] [address]- 5262 17 Jul, 2015 [facility] [place] [id number] [place] [address]- 7249 17 Jul, 2015 Chronic pain G89.29 [facility] [place] [address] [place] [address]- 0015 16 Jul, 2015 Chronic pain G89.29 [facility] [place] [id number] [place] [address]- 5525 15 Jul, 2015 [facility] [place] [address] [place] [address]- 1494 10 Jul, 2015 [facility] [place] [address] [facility] [id number] [place] [address]- 4349 07 Jul, 2015 [facility] [place] [address] [facility] [id number] [place] [address]- 7423 Jul, [facility] [place] [address] [facility] [id number] [place] [address]- 1992 Jun, [facility] [place] [id number] [place] [address]- 4392 Jun, Depression, unspecified depression type F32.9 [place] [address] [place] [id number] [place] [address] 38147- 0631 Jun, Pain in right knee M25.561 [place] [address] [place] [id number] [place] [address] 92412- 9728 Jun, Chronic pain G89.29 ; Back pain M54.9 ; Bone pain M89.8X9 and Weight loss R63.4 [place] [address] [place] [id number] [place] [address] 11608- 1620 Jun, [place] [address] 60919- 9535 May, [place] [address] 51640- 7865 May, UTI symptoms R39.9 ; Pain in right knee M25.561 ; Right low back pain, with sciatica presence unspecified M54.5 ; Right foot pain M79.671 ; Hypokalemia E87.6 and Screening, lipid Z13.220 [place] [address] [place] [id number] [place] [address] 35500- 1025 May, [place] [address] [place] [id number] [place] [address] 54669- 0539 May, [place] [address] [place] [id number] [place] [address] 07420- 4987 Mar, [place] [address] [place] [id number] [place] [address] 73045- 0438 Mar, [place] [address] [place] [id number] [place] [address] 25878- 9372 Mar, Hypokalemia E87.6 [place] [address] [place] [id number] [place] [address] 60488- 7352 Mar, Pain in right leg M79.604 ; Encounter for immunization Z23 ; Pain in right knee M25.561 and Hypokalemia E87.6 [facility] [place] [address], [place] [address]- 0938 Jan, [facility] [place] [address] [place] [address] 30562- 6466 Jan, [facility] [place] [address], [place] [address] 2546 Jan, Abdominal pain, generalized 789.07 [facility] [place] [id number] [place] [address] 34845 2546 Jan, Abdominal pain, generalized 789.07 [facility] [place] [id number] [place] [address] 16432- 4716 Dec, [facility] [place] [id number] [place] [address] 85688- 2686 Dec, [facility] [place] [address] [place] [address] 51092- 9197 Dec, [facility] [place] [address], [place] [address]- 2463 Nov, Hallux valgus 735.0 and Hammertoe 735.4 [facility] [place] [address], [place] [address]- 8996 Nov, [facility] [place] [address], [place] [address]- 8153 Nov, Hallux valgus 735.0 and Hammer toe 735.4 [facility] [place] [address], [place] [address]- 8996 Oct, [facility] [place] [address], [place] [address]- 5986 Oct, [facility] [place] [address], [place] [address]- 9386 Oct, Pre-op evaluation V72.84 [facility] [place] [address], [place] [address] 2546 Oct, [facility] [address], [place] [address]- 9827 Oct, [facility] [id number], [place] [address]- 1290 September, [facility] [id number] [address]- 8912 September, [facility] [id number] [place] [address] 40827- 0458 September, Hallux valgus (acquired) 735.0 and Other hammer toe ( acquired) 735.4 [facility] [id number] [place] [address] 60409- 7023 Aug, [facility] [id number] [place] [address] 90414- 4685 Aug, [facility] [id number] [place] [address] 10651- 8048 Jul, [facility] [address], [place] [address]- 8818 Jul, [facility] [address], [place] [address]- 5802 Jul, [facility] [address], [place] [address]- 7358 Jul, [facility] [address], [place] [address]- 6365 Jul, [facility] [id number], [place] [address]- 9180 Jul, [facility] [id number] [address]- 4427 Jul, [facility] [address] [facility] [id number], [place] [address]- 5675 Jul, [facility] [address], [place] [address]- 1025 Jun, 2014 [facility] [place] [facility] [address] [id number] [place] [address]- 4457 Jun, [facility] [place] [facility] [address] [id number] [place] [address]- 0826 Jun, 2014 [facility] [place] [facility] [address] [facility] [id number] [place] [address]- 0225 Jun, 2014 [facility] [place] [facility] [address] [id number] [place] [address]- 3774 Jun, 2014 [facility] [place] [facility] [address] [id number] [place] [address]- 6466 Jun, 2014 [facility] [place] [facility] [address] [facility] [id number] [place] [address]- 2512 Jun, [facility] [place] [facility] [address] [facility] [id number] [place] [address]- 2720 Jun, 2014 [facility] [place] [facility] [address] [facility] [id number] [place] [address]- 2392 Jun, [facility] [place] [facility] [address] [facility] [id number] [place] [address]- 8113 Jun, [facility] [place] [facility] [address] [facility] [id number] [place] [address]- 7858 May, [facility] [place] [facility] [address] [facility] [id number] [place] [address]- 9713 May, [facility] [place] [facility] [address] [facility] [id number], [place] [address]- 8375 May, [facility] [place] [facility] [address] [id number] [place] [address]- 8954 May, [facility] [place] [facility] [address] [facility] [id number] [place] [address]- 7147 May, [facility] [place] [facility] [address] [facility] [id number], [place] [address]- 2036 May, [facility] [place] [facility] [address] [id number] [place] [address]- 2865 May, [facility] [place] [facility] [address] [id number] [place] [address]- 1457 May, [facility] [place] [facility] [address] [id number] [place] [address]- 2194 May, [facility] [place] [facility] [address] [id number] [place] [address]- 4693 May, [facility] [place] [facility] [address] [id number] [place] [address]- 1004 May, [facility] [place] [facility] [address] [id number] [place] [address]- 2342 May, [facility] [place] [facility] [address] [id number] [place] [address]- 1027 May, [facility] [place] [facility] [address] [id number] [place] [address]- 1619 May, [facility] [place] [facility] [address] [id number] [place] [address]- 7978 May, [facility] [place] [facility] [address] [id number] [place] [address]- 4804 May, [facility] [place] [facility] [address] [id number] [place] [address]- 0778 May, [facility] [place] [facility] [address] [id number] [place] [address]- 9019 May, [facility] [place] [facility] [address] [id number] [place] [address]- 4593 Apr, [facility] [place] [facility] [address] [id number] [place] [address]- 0286 Apr, [facility] [place] [facility] [address] [id number] [place] [address]- 4975 Apr, [facility] [place] [facility] [address] [id number], [place] [address]- 9016 Apr, [facility] [place] [facility] [address] [id number] [place] 4967 Apr, [facility] [place] [facility] [address] [id number] [place] [address]- 3759 Apr, [facility] [place] [facility] [address] [id number] [place] [address]- 5064 Apr, [facility] [place] [facility] [address] [id number] [place] [address]- 9903 Apr, [facility] [place] [facility] [address] [id number] [place] 2591 Apr, [facility] [place] [facility] [address] [id number] [place] [address]- 7670 Mar, [facility] [place] [facility] [address] [id number] [place] [address]- 3824 Mar, [facility] [place] [facility] [address] [id number] [place] [address]- 9671 Mar, [facility] [place] [facility] [address] [id number] [place] [address]- 8995 Mar, [facility] [place] [facility] [address] [id number] [place] [address]- 0361 Mar, [facility] [place] [facility] [address] [id number], [place] [address]- 0810 Feb, [facility] [place] [facility] [address] [id number], [place] [address]- 6054 Feb, [facility] [place] [facility] [address] [id number] [place] [address]- 0380 Feb, [facility] [place] [facility] [address] [id number], [place] [address]- 7580 Feb, [facility] [place] [facility] [address] [id number], [place] [address]- 8237 Feb, [facility] [place] [facility] [address] [id number] [place] [address]- 7146 16 Feb, 2013 [facility] [place] [facility] [address] [id number] [place] [address]- 6450 Feb, 2013 [facility] [place] [facility] [address] [id number] [place] [address]- 0456 Feb, 2013 [facility] [place] [facility] [address] [id number] [place] [address]- 9617 Feb, 2013 [facility] [place] [facility] [address] [id number] [place] [address]- 3697 Feb, 2013 [facility] [place] [facility] [address] [id number] [place] [address]- 2351 Feb, 2013 [facility] [place] [facility] [address] [id number] [place] [address]- 8386 Feb, 2013 [facility] [place] [facility] [address] [id number] [place] [address]- 8774 Feb, 2013 [facility] [place] [facility] [address] [id number] [place] [address]- 1902 Feb, 2013 [facility] [place] [facility] [address] [id number] [place] [address]- 2189 Feb, 2013 [facility] [place] [facility] [address] [facility] [id number] [place] [address]- 0524 Feb, 2013 [facility] [place] [facility] [address] [id number] [place] [address]- 4936 23 Jan, 2013 [facility] [place] [facility] [address] [id number] [place] [address]- 9314 23 Sep, 2013 [facility] [place] [facility] [address] [id number] [place] [address]- 4545 20 Sep, 2013 [facility] [place] [facility] [address] [id number] [place] [address]- 9182 19 Sep, 2013 [facility] [place] [facility] [address] [id number] [place] [address]- 9619 Jan, [facility] [place] [facility] [address] [id number] [place] [address]- 8221 Jan, [facility] [place] [facility] [address] [id number] [place] [address]- 5276 Jan, [facility] [place] [facility] [address] [id number] [place] [address]- 1453 Jan, [facility] [place] [facility] [address] [id number] [place] [address]- 3397 Dec, [facility] [place] [facility] [address] [id number] [place] [address]- 9[address] Dec, [facility] [place] [facility] [address] [id number] [place] [address] Nov, [facility] [place] [facility] [address] [id number] [place] [address] Nov, [facility] [place] [facility] [address] [id number] [place] [address] Nov, [facility] [place] [facility] [address] [id number] [place] [address] Nov, [facility] [place] [facility] [address] [id number] [place] [address] Nov, [facility] [place] [facility] [address] [id number] [place] [address]- [address] Nov, [facility] [place] [facility] [address] [id number] [place] [address] Nov, [facility] [place] [facility] [address] [id number] [place] [address] Nov, [facility] [place] [facility] [address] [id number] [place] [address] Nov, [facility] [place] [facility] [address] [id number] [place] [address] Oct, [facility] [place] [facility] [address] [id number] [place] [address]598 Oct, [facility] [place] [facility] [address] [id number] [place] [address]- [address] Oct, [facility] [place] [facility] [address] [id number] [place] [address]- [address] Oct, [facility] [place] [facility] [address] [id number] [place] [address]- 96[address] Oct, [facility] [place] [facility] [address] [id number] [place] [address]39 Oct, [facility] [place] [facility] [address] [id number] [place] [address]- [address] September, [facility] [place] [facility] [address] [id number] [place] [address]- [address]90 September, [facility] [place] [facility] [address] [id number] [place] [address]- [address] September, [facility] [place] [facility] [address] [id number] [place] [address] September, [facility] [place] [facility] [address] [id number] [place] [address]- [address]486 September, [facility] [place] [facility] [address] [id number] [place] [address]- 2619 September, [facility] [place] [facility] [address] [id number] [place] [address]- [address]358 September, [facility] [place] [facility] [address] [id number] [place] [address]- 8660 September, [facility] [place] [facility] [address] [id number] [place] [address]- 0784 September, [facility] [place] [facility] [address] [id number] [place] [address]- 2059 September, [facility] [place] [facility] [address] [id number] [place] [address]- 2602 September, [facility] [place] [facility] [address] [id number] [place] [address]- 3609 September, [facility] [place] [facility] [address] [id number] [place] [address] September, [facility] [place] [facility] [address] [id number] [place] [address]656 September, [facility] [place] [facility] [address] [id number] [place] [address]- [address] September, [facility] [place] [facility] [address] [id number] [place] [address]- 3571 September, [facility] [place] [facility] [address] [id number] [place] [address]- 9814 September, [facility] [place] [facility] [address] [id number] [place] [address]- [address] September, [facility] [place] [facility] [address] [id number] [place] [address]- [address] September, [facility] [place] [facility] [address] [id number] [place] [address]- 8830 September, [facility] [place] [facility] [address] [id number] [place] [address] 8939 Aug, [facility] [place] [facility] [address] [id number] [place] [address]- [address] Aug, [facility] [place] [facility] [address] [id number] [place] [address]- [address] Aug, [facility] [place] [facility] [address] [id number] [place] [address]- [address] Aug, [facility] [place] [facility] [address] [id number] [place] [address]- 9953 Aug, [facility] [place] [facility] [address] [id number] [place] [address]- 9415 Aug, [facility] [place] [facility] [address] [id number] [place] [address]- [address] 16 Aug, 2013 [facility] [place] [facility] [address] [id number] [place] [address]- [address] 16 Aug, 2013 [facility] [place] [facility] [address] [id number] [place] [address]- [address] 15 Aug, 2013 [facility] [place] [facility] [address] [id number] [place] [address]- [address] 15 Aug, 2013 [facility] [place] [facility] [address] [id number] [place] [address]- [address] 14 Aug, 2013 [facility] [place] [facility] [address] [id number] [place] [address]- [address] Aug, [facility] [place] [facility] [address] [id number] [place] [address]- [address]116 Aug, [facility] [place] [facility] [address] [id number] [place] [address]- [address]841 Aug, [facility] [place] [facility] [address] [id number] [place] [address]- 37[address] Aug, [facility] [place] [facility] [address] [id number] [place] [address]- 3731 31 Jul, 2013 [facility] [place] [facility] [address] [id number] [place] [address]- [address]88 31 Jul, 2013 [facility] [place] [facility] [address] [id number] [place] [address]- [address] 27 Jul, 2013 [facility] [place] [facility] [address] [id number] [place] [address]- [address] 27 Jul, 2013 [facility] [place] [facility] [address] [id number] [place] [address] 8086 20 Jul, 2013 [facility] [place] [facility] [address] [id number] [place] [address] 8083 20 Jul, 2013 [facility] [place] [facility] [address] [id number] [place] [address]- 2949 18 Jul, 2013 [facility] [place] [facility] [address] [id number] [place] [address] 7362 18 Jul, 2013 [facility] [place] [facility] [address] [id number] [place] [address] 1689 Jul, [facility] [place] [facility] [address] [id number] [place] [address]- 2426 Jul, [facility] [place] [facility] [address] [id number] [place] [address] 5549 Jul, [facility] [place] [facility] [address] [id number] [place] [address] 0166 Jul, [facility] [place] [facility] [address] [id number] [place] [address]- 8911 Jul, [facility] [place] [facility] [address] [id number] [place] [address]- 9572 Jul, [facility] [place] [facility] [address] [id number] [place] [address]- 9709 Jul, [facility] [place] [facility] [address] [id number] [place] [address]- 0700 Jun, [facility] [place] [facility] [address] [id number] [place] [address]- 5055 Jun, [facility] [place] [facility] [address] [id number] [place] [address]- 7386 Jun, [facility] [place] [facility] [address] [id number] [place] [address]- 7822 Jun, [facility] [place] [facility] [address] [id number] [place] [address]- 8874 Jun, [facility] [place] [facility] [address] [id number] [place] [address]- 0123 Jun, [facility] [place] [facility] [address] [id number] [place] [address]- 1999 May, [facility] [place] [facility] [address] [id number] [place] [address]- 2262 May, [facility] [place] [facility] [address] [id number] [place] [address]- 3558 May, [facility] [place] [facility] [address] [id number] [place] [address]- 5134 May, [facility] [place] [facility] [address] [id number] [place] [address]- 4840 May, [facility] [place] [facility] [address] [id number] [place] [address]- 7919 May, [facility] [place] [facility] [address] [id number] [place] [address]- 6470 May, [facility] [place] [facility] [address] [id number] [place] [address]- 5576 May, [facility] [place] [facility] [address] [id number] [place] [address]- 2432 May, [facility] [place] [facility] [address] [id number] [place] [address]- 5802 May, [facility] [place] [facility] [address] [id number] [place] [address]- 4867 May, [facility] [place] [facility] [address] [id number] [place] [address]- 7759 May, [facility] [place] [facility] [address] [id number] [place] [address]- 0917 May, [facility] [place] [facility] [address] [id number] [place] [address]- 2769 May, [facility] [place] [facility] [address] [id number] [place] [address]- 1526 May, [facility] [place] [facility] [address] [id number] [place] [address]- 8396 Apr, [facility] [place] [facility] [address] [id number] [place] [address]- 8372 Apr, [facility] [place] [facility] [address] [id number] [place] [address]- 1059 Apr, [facility] [address] [id number] [place] [address]- 3162 Apr, [facility] [address] [id number] [place] [address]- 7803 Apr, [facility] [address] [id number] [place] [address]- 7221 Apr, [facility] [place] [facility] [address] [id number] [place] [address]- 8477 Apr, [facility] [address] [id number] [place] [address]- 2620 Apr, [facility] [address] [id number] [place] [address]- 2504 Apr, [facility] [address] [id number] [place] [address]- 6131 Apr, [facility] [address] [id number] [place] [address]- 8757 Mar, [facility] [address] [id number] [place] [address]- 1890 Mar, [facility] [address] [id number] [place] [address]- 9672 Mar, [facility] [address] [id number] [place] [address]- 5757 Mar, [facility] [place] [facility] [address] [id number], [place] [address]- 5615 Mar, [facility] [place] [facility] [address] [id number], [place] [address]- 9642 Mar, [facility] [place] [facility] [address] [id number], [place] [address]- 4015 Mar, [facility] [place] [facility] [address] [id number], [place] [address]- 0160 Mar, [facility] [place] [facility] [address] [id number] [place] [address]- 1678 Mar, [facility] [place] [facility] [address] [id number] [place] [address]- 1481 Mar, [facility] [place] [facility] [address] [id number] [place] [address]- 6633 Mar, [facility] [place] [facility] [address] [id number] [place] [address]- 5221 Mar, [facility] [place] [facility] [address] [id number] [place] [address]- 8333 Mar, [facility] [place] [facility] [address] [id number] [place] [address]- 7016 Mar, [facility] [place] [facility] [address] [id number] [place] [address]- 6758 Mar, [facility] [place] [facility] [address] [id number] [place] [address]- 4910 Mar, [facility] [place] [facility] [address] [id number] [place] [address]- 6693 Mar, [facility] [place] [facility] [address] [id number] [place] [address]- 5675 14 Mar, 2013 [facility] [place] [facility] [address] [id number] [place] [address]- 6504 Mar, [facility] [place] [facility] [address] [id number] [place] [address]- 7392 Mar, [facility] [place] [facility] [address] [id number] [place] [address]- 2048 Mar, [facility] [place] [facility] [address] [id number] [place] [address]- 9111 Mar, [facility] [place] [facility] [address] [id number] [place] [address]- 8935 Mar, [facility] [place] [facility] [address] [id number] [place] [address]- 9456 18 Feb, 2013 [facility] [place] [facility] [address] [id number] [place] [address]- 5397 18 Feb, 2013 [facility] [place] [facility] [address] [id number] [place] [address]- 4789 16 Feb, 2013 [facility] [place] [facility] [address] [id number] [place] [address]- 5532 16 Feb, 2013 [facility] [place] [facility] [address] [id number] [place] [address]- 1415 15 Feb, 2012 [facility] [place] [facility] [address] [id number] [place] [address]- 0629 09 Feb, 2013 [facility] [place] [facility] [address] [id number] [place] [address]- 3408 09 Feb, 2013 [facility] [place] [facility] [address] [id number] [place] [address]- 2501 07 Feb, 2013 [facility] [place] [facility] [address] [id number], [place] [address]- 6682 04 Feb, 2013 [facility] [place] [facility] [address] [id number] [place] [address]- 7432 03 Feb, 2013 [facility] [place] [facility] [address] [id number], [place] [address]- 5619 30 Jan, 2013 [facility] [place] [facility] [address] [id number], [place] [address]- 7420 26 Jan, 2012 [facility] [place] [facility] [address] [id number], [place] [address]- 2547 24 Jan, 2012 [facility] [place] [facility] [address] [id number] [place] [address]- 1639 23 Jan, 2013 [facility] [place] [facility] [address] [id number], [place] [address]- 2878 17 Jan, 2012 [facility] [place] [facility] [address] [id number] [place] [address] 28 Dec, 2012 [facility] [place] [facility] [address] [id number] [place] [address]- 0500 Dec, [facility] [place] [facility] [address] [id number] [place] [address]- 8796 Dec, [facility] [place] [facility] [address] [id number] [place] [address]- 5087 Dec, [facility] [place] [facility] [address] [id number] [place] [address]- 4839 Dec, [facility] [place] [facility] [address] [id number] [place] [address]- 7141 Dec, [facility] [place] [facility] [address] [id number] [place] [address]- 5624 Dec, [facility] [place] [facility] [address] [id number] [place] [address]- 7570 Nov, [facility] [place] [facility] [address] [id number] [place] [address]- 8945 Nov, [facility] [place] [facility] [address] [id number] [place] [address]- 3307 Nov, [facility] [place] [facility] [address] [id number] [place] [address]- 4514 Nov, [facility] [place] [facility] [address] [id number] [place] [address]- 3579 Nov, [facility] [place] [facility] [address] [id number] [place] [address]- 5112 Oct, [facility] [place] [facility] [address] [id number] [place] [address]- 4055 Oct, [facility] [place] [facility] [address] [id number] [place] [address]- 1268 Oct, [facility] [place] [facility] [address] [id number] [place] [address]- 2712 September, [facility] [place] [facility] [address] [id number] [place] [address]- 6165 September, [facility] [address] [id number] [place] [address]- 8280 September, [facility] [address] [id number] [place] [address]- 3447 September, [facility] [address] [id number] [place] [address]- 2461 September, [facility] [address] [id number] [place] [address]- 7279 September, [facility] [address] [id number] [place] [address]- 5034 September, [facility] [address] [id number] [place] [address]- 7735 Aug, [facility] [address] [id number] [place] [address]- 9019 Aug, [facility] [address] [id number] [place] [address]- 2815 Aug, [facility] [address] [id number] [place] [address]- 3708 29 Jul, 2012 [facility] [address] [id number] [place] [address]- 4759 27 Jul, 2012 [facility] [address] [id number] [place] [address]- 5189 Jul, [facility] [address] [id number] [place] [address]- 5482 Jul, [facility] [address] [id number] [place] [address]- 1243 18 Jul, 2012 [facility] [address] [id number] [place] [address]- 0376 18 Jul, 2012 [facility] [address] [id number] [place] [address]- 6746 13 Jul, 2012 [facility] [address] [id number] [place] [address]- 2756 Jun, [facility] [address] [id number] [place] [address] 2546 Jun, [facility] [place] [facility] [address] [id number] [place] [address] 2546 Jun, [facility] [address] [id number] [place] [address]- 5206 Jun, [facility] [place] [facility] [address] [id number] [place] [address] 2546 15 Jun, 2012 [facility] [address] [id number] [place] [address]- 4256 Jun, [facility] [place] [facility] [address] [id number] [place] [address] 2546 13 Jun, 2012 [facility] [address] [id number] [place] [address]- 4006 Jun, [facility] [address] [id number] [place] [address]- 5548 Jun, [facility] [address] [id number] [place] [address]- 0362 Jun, [facility] [address] [id number] [place] [address]- 7020 May, [facility] [place] [facility] [address] [id number] [place] [address] 2546 May, [facility] [place] [facility] [address] [id number] [place] [address] 2546 May, [facility] [place] [facility] [address] [id number] [place] [address]- 5256 May, [facility] [place] [facility] [address] [id number] [place] [address]- 2546 May, [facility] [place] [facility] [address] [id number] [place] [address]- 7958 May, [facility] [place] [facility] [address] [id number] [place] [address]- 7703 Apr, [facility] [place] [facility] [address] [id number] [place] [address]- 5686 Apr, [facility] [place] [facility] [address] [id number] [place] [address]- 4896 Apr, [facility] [place] [facility] [address] [id number] [place] [address]- 7986 Apr, [facility] [place] [facility] [address] [id number] [place] [address]- 0371 Apr, [facility] [place] [facility] [address] [id number] [place] [address]- 1761 Apr, [facility] [place] [facility] [address] [id number] [place] [address]- 0325 Apr, [facility] [place] [facility] [address] [id number] [place] [address]- 6974 Mar, [facility] [place] [facility] [address] [id number] [place] [address]- 8571 29 Mar, 2012 [facility] [place] [facility] [address] [id number] [place] [address]- 6866 Mar, [facility] [place] [facility] [address] [id number] [place] [address]- 4607 Mar, [facility] [place] [facility] [address] [id number], [place] [address]- 5625 Mar, [facility] [place] [facility] [address] [id number] [place] [address]- 6546 18 Mar, 2012 [facility] [place] [facility] [address] [id number] [place] [address]- 5416 18 Mar, 2012 [facility] [place] [facility] [address] [facility] [id number], [place] [address]- 2058 16 Mar, 2012 [facility] [place] [facility] [address] [id number], [place] [address]- 1181 Mar, [facility] [place] [facility] [address] [id number] [place] [address]- 2560 Mar, [facility] [place] [facility] [address] [id number] [place] [address]902 Mar, [facility] [place] [facility] [address] [facility] [id number] [place] [address]- 4540 Mar, [facility] [place] [facility] [address] [id number] [place] [address]- 1896 Mar, [facility] [place] [facility] [address] [id number] [place] [address]- 7482 Mar, [facility] [place] [facility] [address] [facility] [id number] [place] [address]- 8996 Mar, [facility] [place] [facility] [address] [facility] [id number] [place] [address]- 8465 Mar, [facility] [place] [facility] [address] [facility] [id number] [place] [address]- 4041 Mar, [facility] [place] [facility] [address] [facility] [id number], [place] [address]- 4017 Feb, [facility] [place] [facility] [address] [facility] [id number], [place] [address]- 5158 Feb, [facility] [place] [facility] [address] [facility] [id number], [place] [address]- 5565 Feb, [facility] [place] [facility] [address] [facility] [id number], [place] [address]- 5694 Feb, [facility] [place] [facility] [address] [facility] [id number], [place] [address]- 2042 Feb, [facility] [place] [facility] [address] [facility] [id number], [place] [address]- 9983 Feb, [facility] [place] [facility] [address] [facility] [id number], [place] [address]- 4916 Feb, [facility] [place] [facility] [address] [id number] [place] [address]- 5786 11 Feb, 2012 [facility] [place] [facility] [address] [id number] [place] [address]- 7835 05 Feb, 2012 [facility] [place] [facility] [address] [id number] [place] [address]- 5686 04 Feb, 2012 [facility] [place] [facility] [address] [id number] [place] [address]- 9241 02 Feb, 2012 [facility] [place] [facility] [address] [id number] [place] [address]- 0258 27 Jan, 2012 [facility] [place] [facility] [address] [id number] [place] [address]- 4001 25 Jan, 2012 [facility] [place] [facility] [address] [id number] [place] [address]- 0730 13 Jan, 2012 [facility] [place] [facility] [address] [id number] [place] [address]- 7847 12 Jan, 2012 [facility] [place] [facility] [address] [id number] [place] [address]- 0806 07 Jan, 2012 [facility] [place] [facility] [address] [id number] [place] [address]- 9024 31 Dec, 2011 [facility] [place] [facility] [address] [id number] [place] [address]- 9471 24 Dec, 2011 [facility] [place] [facility] [address] [id number] [place] [address]- 3884 22 Dec, 2011 [facility] [place] [facility] [address] [id number] [place] [address]- 0458 18 Dec, 2011 [facility] [place] [facility] [address] [id number] [place] [address]- 9965 16 Dec, 2011 [facility] [place] [facility] [address] [id number] [place] [address]- 8545 10 Dec, 2011 [facility] [place] [facility] [address] [id number] [place] [address]- 0583 Dec, [facility] [place] [facility] [address] [id number] [place] [address]- 9890 Dec, [facility] [place] [facility] [address] [id number] [place] [address]- 8914 Nov, [facility] [place] [facility] [address] [id number] [place] [address]- 5541 Nov, [facility] [place] [facility] [address] [id number] [place] [address]- 5300 Nov, [facility] [place] [facility] [address] [id number] [place] [address]- 1901 Nov, [facility] [place] [facility] [address] [id number] [place] [address]- 2157 Nov, [facility] [place] [facility] [address] [id number] [place] [address]- 3471 Oct, [facility] [place] [facility] [address] [id number] [place] [address]- 9281 Oct, [facility] [place] [facility] [address] [id number] [place] [address]- 3742 September, [facility] [place] [facility] [address] [id number] [place] [address]- 6967 September, [facility] [place] [facility] [address] [id number] [place] [address]- 5554 September, [facility] [place] [facility] [address] [id number] [place] [address]- 6111 September, [facility] [place] [facility] [address] [id number] [place] [address]- 6703 September, [facility] [place] [facility] [address] [id number] [place] [address] September, [facility] [place] [facility] [address] [id number] [place] [address] September, [facility] [place] [facility] [address] [id number] [place] [address] September, [facility] [address] [id number] [place] [address] September, [facility] [address] [id number] [place] [address] September, [facility] [address] [id number] [place] [address] September, [facility] [address] [id number] [place] [address] September, [facility] [address] [id number] [place] [address] September, [facility] [address] [id number] [place] [address] 1273 September, [facility] [address] [id number] [place] [address] 24 Aug, 2011 [facility] [address] [id number] [place] [address] Aug, [facility] [address] [id number] [place] [address] Aug, [facility] [address] [facility] [id number] [place] [address] Aug, [facility] [address] [facility] [id number] [place] [address] 23 Jul, 2011 [facility] [address] [facility] [id number], [place] [address] 13 Jul, 2011 [facility] [place] [facility] [address] [facility] [id number] [place] [address] Jul, [facility] [place] [facility] [address] [facility] [id number] [place] [address] 28 Jun, 2011 [facility] [place] [address] [facility] [id number] [id number] Jun, [facility] [address] [id number] [place] [address]26 13 Jun, 2011 [facility] [place] [facility] [address] [id number] [place] [address]- 7526 10 Jun, 2011 [facility] [place] [facility] [address] [id number] [place] [address]46 07 Jun, 2011 [facility] [place] [facility] [address] [id number] [place] [address]806 07 Jun, 2011 [facility] [place] [facility] [address] [id number] [place] [address]- [address] 03 Jun, 2011 [facility] [place] [facility] [address] [id number] [place] [address] Jun, [facility] [place] [facility] [address] [id number] [place] [address] May, [facility] [place] [facility] [address] [id number] [place] [address] 49[address] May, [facility] [place] [facility] [address] [id number] [place] [address] May, [facility] [place] [facility] [address] [id number] [place] [address] May, [facility] [place] [facility] [address] [id number] [place] [address] May, [facility] [place] [facility] [address] [id number] [place] [address] May, [facility] [place] [facility] [address] [id number] [place] [address] May, [facility] [place] [facility] [address] [id number] [place] [address] May, [facility] [place] [facility] [address] [id number] [place] [address] May, [facility] [place] [facility] [address] [id number], [place] [address] May, [facility] [place] [facility] [address] [id number] [place] [address]263 17 May, 2011 [facility] [place] [facility] [address] [id number] [place] [address]147 May, [facility] [place] [facility] [address] [id number] [place] [address] May, [facility] [place] [facility] [address] [id number] [place] [address] 2917 May, [facility] [place] [facility] [address] [id number] [place] [address]147 30 Apr, 2011 [facility] [place] [facility] [address] [id number] [place] [address] 8441 16 Apr, 2011 [facility] [place] [facility] [address] [id number] [place] [address]- [address]369 05 Apr, 2011 [facility] [place] [facility] [address] [id number] [place] [address] Mar, [facility] [place] [facility] [address] [id number] [place] [address] Mar, [facility] [place] [facility] [address] [id number] [place] [address]- 6566 31 Feb, 2011 [facility] [place] [facility] [address] [id number], [place] [address] 26 Feb, 2011 [facility] [place] [facility] [address] [id number] [place] [address] 21 Feb, 2011 [facility] [place] [facility] [address] [id number] [place] [address]- 1191 20 Feb, 2011 [facility] [place] [facility] [address] [id number] [place] [address]- 7632 13 Feb, 2011 [facility] [place] [facility] [address] [id number] [place] [address]- 37[address] 28 Apr, 2010 [facility] [place] [facility] [address] [id number] [place] [address]- 6912 22 Apr, 2010 [facility] [place] [facility] [address] [id number] [place] [address]- 9666 16 Apr, 2010 [facility] [place] [facility] [address] [id number] [place] [address] 2546 15 Apr, 2010 [facility] [place] [facility] [address] [id number] [place] [address]- [address]116 15 Apr, 2010 [facility] [place] [facility] [address] [id number] [place] [address] 2547 Apr, [facility] [place] [facility] [address] [id number] [place] [address]846 24 Mar, 2010 [facility] [place] [facility] [address] [id number] [place] [address] 9873 17 Mar, 2010 [facility] [place] [facility] [address] [id number] [place] [address]- 0767 Mar, [facility] [place] [facility] [address] [id number] [place] [address]248 Feb, [facility] [place] [facility] [address] [id number] [place] [address]- 78[address] Feb, [facility] [place] [facility] [address] [id number] [place] [address] 6039 Feb, [facility] [place] [facility] [address] [id number] [place] [address]- 1509 15 Feb, 2010 [facility] [place] [facility] [address] [id number] [place] [address] 2542 Dec, [facility] [place] [facility] [address] [id number] [place] [address] 4756 Dec, [facility] [place] [facility] [address] [id number] [place] [address] 2546 Oct, [facility] [place] [facility] [address] [id number] [place] [address] 2548 Mar, [facility] [place] [address] [facility] [id number] [place] [address] Mar, [facility] [place] [address] [facility] [id number] [place] [address] September, IMMUNIZATIONS No Known Immunizations SOCIAL HISTORY Never Assessed REASON FOR VISIT Pain/LVM PLAN OF CARE VITAL SIGNS MEDICATIONS Unknown [...] Surgical History section Surgical History orthopedic surgery-Dr. Avitai-left foot surgery bunionectomy, reduction of hammertoe 02/2012 Surgical History Foot surgery. Removal of hardware 10/2014 Surgical History Left foot surgery 10/2014 Surgical History left knee arthroplasty 12/2014 Hospitalization History Hospitalization for surgery only Hospitalization History ICU-COPD,UTI 05/2015
--- OUTSIDE RECORDS SUMMARY | 2017-11-27 15:41 | XMS REPORT ---
Author Author VALERIE ZAVALA [facility] Address [address] [place] [address] Care Team Providers Care Wiper Blender Name Role Phone VALERIE ZAVALA Unavailable PROBLEMS Type Condition ICD9-CM Code WHA49-SS Code Onset Dates Condition Status SNOMED Code Problem Generalized anxiety disorder F41.1 Active 87806953 Problem Hypokalemia E87.6 Active 619082601 Problem Right low back pain, with sciatica presence unspecified M54.5 Active 537634913 Problem Post-traumatic stress disorder, chronic F43.12 Active 10673481 Problem Pain in right knee M25.561 Active 53183163 Problem Gastroesophageal reflux disease without esophagitis K21.9 Active 712490333 Problem UTI symptoms R39.9 Active 91153360 Problem Essential hypertension I10 Active 85256471 Problem Anxiety F41.9 Active 10445694 Problem Neuropathy G62.9 Active 552145101 Problem Other chronic pain G89.29 Active 64045846 Problem Generalized abdominal pain R10.84 Active 874564613 Problem Chronic pain G89.29 Active 44200275 Problem Back pain M54.9 Active 609451036 Problem Right foot pain M79.671 Active 06215753 Problem Panic attacks F41.0 Active 527047662 Problem Other emphysema J43.8 Active 12656951 Problem Kidney stones N20.0 Active 63278337 Problem Renal calculus, right N20.0 Active 94584609 Problem Weight decrease R63.4 Active 000973922 Problem Tobacco abuse Z72.0 Active 95870206 Problem Bone pain M89.8X9 Active 11768531 Problem Depression, unspecified depression type F32.9 Active 93544187 Problem Insomnia, unspecified type G47.00 Active 822894611 Problem Pulmonary emphysema, unspecified emphysema type J43.9 Active 33620803 Problem Right upper quadrant abdominal pain R10.11 Active 645809628 Problem Weight loss R63.4 Active 838189964 ALLERGIES Substance Reaction Event Type Date Status Sulfur rash Drug Allergy Apr, Active Remeron itching Drug Allergy Apr, Active Morphine Sulfate nausea Drug Allergy Apr, Active Fentanyl 25 Mcg/hr Patch 72 Hr Unknown Non Drug Allergy Apr, Active ENCOUNTERS Encounter Location Date Diagnosis [facility] [id number] [place] [address] 57246- 8852 Nov, [facility] [address] 57305- 6189 Oct, [facility] [id number] [place] [address] 34154- 0239 Oct, Medicare welcome exam Z00.00 [facility] [id number] [place] [address] 69253- 1866 September, Back pain M54.9 and Right anterior knee pain M25.561 [facility] [id number] [place] [address] 20467- 4584 September, [facility] [id number] [place] [address] 55809- 1748 September, [facility] [id number] [place] [address] 13819- 1848 September, Essential hypertension I10 [facility] [id number] [place] [address] 08243- 7375 September, [facility] [id number] [place] [address] 04802- 7055 September, RLQ abdominal pain R10.31 ; Low back pain M54.5 and Other chronic pain G89.29 [facility] [id number] [place] [address] 33880- 0581 Aug, Medicare welcome exam Z00.00 [facility] [id number] [place] [address] 42209- 9376 Aug, [facility] [id number] [place] [address] 72362- 5644 Aug, Acute pyelonephritis N10 and Medicare welcome exam Z00.00 [facility] [id number] [place] [address] 63022 -8414 Aug, Dysuria R30.0 and Acute pyelonephritis N10 [facility] [id number] [place] [address] 33850- 9214 Aug, [facility] [address] 65342- 1656 Aug, [facility] [id number] [place] [address] 22045- 6084 Aug, [facility] [address] 43781- 4802 Aug, [facility] [address] 79718- 2347 Jul, [facility] [address] 62793- 3269 Jul, Renal calculus, right N20.0 and Medicare welcome exam Z00.00 [facility] [id number] [place] [address] 25799 -7267 Jul, Dysuria R30.0 and Renal calculus, right N20.0 [facility] [id number] [place] [address] 75824- 0212 Jul, Medicare welcome exam Z00.00 [facility] [id number] [place] [address] 57862- 3476 Jun, Gastroesophageal reflux disease without esophagitis K21.9 and Generalized abdominal pain R10.84 [facility] [id number] [place] [address] 61236- 7304 Jun, Medicare welcome exam Z00.00 [facility] [id number] [place] [address] 57943- 9121 Jun, [facility] [id number] [place] [address] 95599- 1051 05 Jun, 2017 Medicare welcome exam Z00.00 and Encounter for screening mammogram for malignant neoplasm of breast Z12.31 [facility] [id number] [place] [address] 75916- 6353 02 Jun, 2017 Chronic pain G89.29 [facility] [id number] [place] [address] 12367- 2691 May, [facility] [id number] [place] [address] 75048- 0063 May, Pelvic pain R10.2 [facility] [id number] [place] [address] 23557- 0314 May, Pelvic pain R10.2 [facility] [place] [id number] [place] [address] 67758 -9964 May, Renal calculus, right N20.0 [facility] [id number] [place] [address] 32363- 2517 May, Hematuria, unspecified type R31.9 and Nephrolithiasis N20.0 [facility] [place] [id number] [place] [address] 29982 -7619 May, Dysuria R30.0 and Nephrolithiasis N20.0 [facility] [id number] [place] [address] 60684- 0292 May, [facility] [id number] [place] [address] 09646 -0634 May, Abdominal pain R10.9 and Kidney stone N20.0 [facility] [id number] [place] [address] 72542- 3445 May, [facility] [id number] [place] [address] 62457- 8065 May, Chronic pain G89.29 and Panic attacks F41.0 [facility] [id number] [address]- 4846 May, Urinary tract infection without hematuria, site unspecified N39.0 [facility] [address] [address]- 8874 Apr, Right lower quadrant abdominal pain R10.31 and Abnormal serum lipase level R74.8 [facility] [address] [place] [address] 79098- 0999 Apr, Recurrent urinary tract infection N39.0 [facility] [address] [address] 1965 Apr, UTI symptoms R39.9 ; Recurrent urinary tract infection N39.0 and Pelvic pain R10.2 [facility] [address], [place] [address]- 1918 Apr, Chronic pain G89.29 and Panic attacks F41.0 [facility] [address] [place] [address] 22082- 6896 Apr, Dysuria R30.0 [facility] [address] [address]- 2962 Apr, [facility] [address] [place] [address] 92833- 1218 Apr, Dysuria R30.0 and Urinary tract infection without hematuria , site unspecified N39.0 [facility] [address] [address]- 7437 Mar, UTI symptoms R39.9 [facility] [address] [address]- 3115 Mar, [facility] [address], [place] [address]- 3900 Mar, Panic attacks F41.0 and Chronic pain G89.29 [facility] [address] [address]- 2717 Mar, [facility] [id number] [place] [address] 87182- 4316 Mar, Dysuria R30.0 [facility] [address] 89290- 2415 Mar, Dysuria R30.0 [facility] [address] 37484- 1068 Feb, Chronic pain G89.29 ; Shortness of breath R06.02 ; Weight loss R63.4 ; Encounter for immunization Z23 ; Bone pain M89.8X9 ; Right anterior knee pain M25.561 and Cough R05 [facility] [address] 22967- 6447 Feb, Shortness of breath R06.02 [facility] [address] 73759- 6147 Feb, [facility] [address] 11831- 7129 Feb, Panic attacks F41.0 and Chronic pain G89.29 [facility] [id number] [place] [address] 40091- 4096 Feb, [facility] [id number] [place] [address] 05733- 2507 Feb, Panic attacks F41.0 ; Shortness of breath R06.02 and Encounter for immunization Z23 [facility] [id number] [place] [address] 09597- 4923 Jan, [facility] [id number] [place] [address] 57323- 9940 Jan, Anxiety F41.9 and Chronic pain G89.29 [facility] [id number] [place] [address] 84284- 9503 Dec, Anxiety F41.9 and Chronic pain G89.29 [facility] [id number] [place] [address] 63806- 5901 Nov, Chronic pain G89.29 [facility] [id number] [place] [address] 21967- 5988 Nov, Anxiety F41.9 [facility] [id number] [place] [address] 26550- 0764 Nov, Chronic pain G89.29 ; Essential hypertension I10 and Other emphysema J43.8 [facility] [address] 24628- 0164 Oct, Anxiety F41.9 [facility] [address] 53976- 4679 Oct, [facility] [address] 36390- 6854 Oct, Chronic pain G89.29 [facility] [id number] [place] [address] 73927- 2975 September, Recurrent UTI N39.0 ; Neuropathy G62.9 and Anxiety F41.9 [facility] [id number] [place] [address] 18649- 1161 September, [facility] [address] 86388- 8896 September, Chronic pain G89.29 [facility] [id number] [place] [address] 76972- 8038 September, [facility] [id number] [place] [address] 56270- 9433 Aug, Post-traumatic stress disorder, chronic F43.12 ; Chronic urinary tract infection N39.0 ; Gastroesophageal reflux disease without esophagitis K21.9 ; Chronic pain G89.29 ; Essential hypertension I10 and Tobacco abuse Z72.0 [facility] [address] [place] [address] 08686 -7589 Aug, [facility] [id number] [place] [address] 18119- 2252 Aug, Chronic pain G89.29 [facility] [address] [address]- 2625 18 Aug, 2016 Insomnia, unspecified type G47.00 [facility] [address] [address]- 8638 Aug, [facility] [address] [place] [address] 34831- 7795 24 Jul, 2016 Chronic pain G89.29 [facility] [address], [place] [address]- 9736 Jul, [facility] [id number] [place] [address] 90727- 9423 Jul, [facility] [address] [place] [address] 54652- 8333 Jul, [facility] [address] [place] [address] 91863- 9491 15 Jul, 2016 Recurrent UTI (urinary tract infection) N39.0 [facility] [address], [place] [address]- 5101 Jul, [facility] [address] [place] [address] 33682- 3026 Jun, Chronic pain G89.29 [facility] [address], [place] [address]- 8435 17 Jun, 2016 [facility] [address], [place] [address]- 1150 Jun, [facility] [address] [place] [address] 38380- 6584 30 May, 2016 Chronic pain G89.29 [facility] [address], [place] [address]- 4419 May, Weight loss R63.4 and Shortness of breath R06.02 [facility] [address] [place] [address] 96653- 6971 May, Chronic pain G89.29 ; Weight loss R63.4 and Tobacco abuse Z72.0 [facility] [id number] [place] [address] 44847- 1224 May, [facility] [id number] [place] [address] 66864- 7717 May, Hypoxia R09.02 [facility] [address] 48773- 1339 May, [facility] [id number] [place] [address] 31132- 4789 May, Pulmonary emphysema, unspecified emphysema type J43.9 [facility] [id number] [place] [address] 37229 -6397 May, [facility] [id number] [place] [address] 34039- 0504 May, [facility] [id number] [place] [address] 04688- 6054 May, [facility] [id number] [place] [address] 62015- 4144 May, Chronic pain G89.29 ; Encounter for immunization Z23 ; Right anterior knee pain M25.561 and Cough R05 [facility] [id number] [place] [address] 51991- 0397 Apr, Chronic pain G89.29 [facility] [id number] [place] [address] 26520- 7530 Apr, [facility] [id number] [place] [address] 62098- 5400 Apr, Generalized anxiety disorder F41.1 and Depression, unspecified depression type F32.9 [facility] [id number] [place] [address] 37361- 5001 Apr, Chronic pain G89.29 ; Hypokalemia E87.6 and Insomnia, unspecified type G47.00 [facility] [address] [place] [address]- 9468 Apr, [facility] [id number] [place] [address], [place] [address]- 1138 Apr, Chronic pain G89.29 [facility] [id number] [place] [address], [place] [address]- 3768 Apr, [facility] [id number] [place] [address] 86252- 1587 Mar, [facility] [address] [facility] [id number] [place] [address], [place] [address]- 4283 Mar, Insomnia, unspecified type G47.00 [facility] [id number] [place] [address], [place] [address]- 6595 Mar, Chronic pain G89.29 [facility] [id number] [place] [address], [place] [address]- 2499 Mar, [facility] [id number] [place] [address] 10547- 1985 Feb, [facility] [id number] [place] [address] 57803- 6572 Feb, [facility] [address], [place] [address]- 3743 Feb, [facility] [id number] [place] [address] 23844- 8067 Feb, [facility] [id number] [address]- 7077 Feb, [facility] [id number] [place] [address], [place] [address]- 4672 Jan, [facility] [address] [facility] [id number] [address]- 7565 Jan, [facility] [id number] [place] [address] 87450- 4336 20 Jan, 2016 [facility] [address], [place] [address]- 1351 13 Jan, 2016 [facility] [id number] [place] [address] 61274- 2537 12 Jan, 2016 [facility] [id number] [place] [address] 13704- 2428 07 Jan, 2016 Chronic pain G89.29 [facility] [id number] [place] [address] 62999- 0754 Jan, Chronic pain G89.29 and Fibromyalgia M79.7 [facility] [id number] [place] [address] 49747- 1791 Dec, Depression, unspecified depression type F32.9 and Generalized anxiety disorder 300.02 [facility] [id number] [place] [address] 18463- 0369 Dec, Dysthymia F34.1 ; Insomnia, unspecified type G47.00 and Chronic pain G89.29 [facility] [id number] [place] [address] 41561- 1171 Dec, Chronic pain G89.29 [facility] [id number] [place] [address] 32000- 6516 Dec, Insomnia, unspecified type G47.00 [facility] [id number] [place] [address] 84430- 1217 Dec, Fibromyalgia M79.7 and Chronic pain G89.29 [facility] [address] [place] [address] 94920- 8200 Dec, [facility] [id number] [place] [address] 56426- 2574 Dec, [facility] [id number] [place] [address] 66615- 5889 Dec, [facility] [id number] [place] [address] 11374- 6263 Dec, [facility] [address] [place] [address] 51757- 1102 Dec, Chronic pain G89.29 [facility] [address] [place] [address] 14400- 9199 Dec, [facility] [address] [place] [address] 16117- 0473 Dec, [facility] [id number] [place] [address] 44493- 5856 Dec, [facility] [id number] [place] [address] 46703- 7125 Dec, Chronic pain G89.29 and Dysthymia F34.1 [facility] [id number] [place] [address] 52301- 1154 Nov, [facility] [id number] [place] [address] 91252- 9957 Nov, Hypokalemia E87.6 and Chronic pain G89.29 [facility] [id number] [place] [address] 81610- 0670 Nov, Back pain M54.9 and Pain in right knee M25.561 [facility] [id number] [place] [address] 40322- 5615 Nov, [facility] [id number] [place] [address] 00536- 0712 Nov, Chronic pain G89.29 [facility] [address] [place] [address] 98967- 1813 Nov, Chronic pain G89.29 ; Weight loss R63.4 ; Bone pain M89.8X9 and Insomnia, unspecified type G47.00 [facility] [address] [address]- 6708 Nov, Chronic pain G89.29 [facility] [id number] [address]- 9697 Nov, Chronic pain G89.29 [facility] [address] [place] [address] 14633- 2531 30 Oct, 2015 Chronic pain G89.29 [facility] [address], [place] [address]- 2151 Oct, UTI symptoms R39.9 [facility] [id number] [place] [address] 46909- 9279 Oct, Chronic pain G89.29 [facility] [address] [place] [address] 37505- 7199 Oct, Chronic pain G89.29 [facility] [address] [place] [address] 74006- 3106 Oct, Chronic pain G89.29 [facility] [address] [place] [address] 48075- 8365 Oct, Right upper quadrant abdominal pain R10.11 [facility] [address] [place] [address] 84144- 7327 Oct, Chronic pain G89.29 [facility] [address], [place] [address]- 1454 Oct, [facility] [address] [place] [address] 25230- 3324 September, Chronic pain G89.29 [facility] [address], [place] [address]- 6260 September, Dysuria R30.0 and Urinary tract infection without hematuria , site unspecified N39.0 [facility] [address], [place] [address]- 0993 September, [facility] [address] [address]- 7835 September, Dysuria R30.0 [facility] [id number] [place] [address] 69846- 4724 September, Chronic pain G89.29 [facility] [id number] [place] [address] 43436- 2921 September, Chronic pain G89.29 and Essential hypertension I10 [facility] [id number] [place] [address] 93774- 9272 September, [facility] [address] [address]- [address] September, [facility] [id number] [place] [address] 53648- 2703 September, [facility] [id number] [place] [address] 16079- 1574 Aug, UTI symptoms R39.9 [facility] [id number] [place] [address] 09884- 7419 Aug, Dysuria R30.0 [facility] [id number] [place] [address] 71278- 6296 Aug, [facility] [id number] [place] [address] 43686- 5170 Aug, [facility] [id number] [place] [address] 23201- 6270 Aug, [facility] [id number] [place] [address] 72240- 2293 Aug, Chronic pain G89.29 [facility] [id number] [place] [address] 93892- 2716 Aug, Dysthymia F34.1 [facility] [id number] [place] [address] 76377- 9034 Aug, Conjunctivitis, unspecified conjunctivitis type, unspecified laterality H10.9 [facility] [id number] [place] [address] 56879- 5017 Jul, Chronic pain G89.29 ; Back pain M54.9 ; Tobacco abuse Z72.0 and Weight decrease R63.4 [facility] [address] [facility] [id number], [place] [address] 30 Jul, 2015 [facility] [address] [facility] [id number], [place] [address] 2546 30 Jul, 2015 [facility] [address] [facility] [id number], [place] [address] 2546 24 Jul, 2015 Chronic pain G89.29 [facility] [address] [facility] [id number] [place] [address] 2546 22 Jul, 2015 [facility] [address] [facility] [id number] [place] [address] 38798 2546 21 Jul, 2015 [facility] [id number], [place] [address] 18 Jul, 2015 [facility] [id number] [place] [address] 96092- 6439 17 Jul, 2015 [facility] [address] [facility] [id number], [place] [address] 2540 17 Jul, 2015 Chronic pain G89.29 [facility] [id number] [address] 2546 16 Jul, 2015 Chronic pain G89.29 [facility] [id number] [address] 2546 15 Jul, 2015 [facility] [id number] [address] 2549 10 Jul, 2015 [facility] [address] [facility] [facility] [id number], [place] [address] Jul, [facility] [address] [facility] [id number], [place] [address] 2546 Jul, [facility] [address] [id number] [address] 29 Jun, 2015 [facility] [id number] [place] [address] 64922- 7074 Jun, Depression, unspecified depression type F32.9 [place] [address] [address]- 0820 Jun, Pain in right knee M25.561 [facility] [address] [address]- 4289 Jun, Chronic pain G89.29 ; Back pain M54.9 ; Bone pain M89.8X9 and Weight loss R63.4 [place] [address] 95151- 7576 Jun, [place] [address] 12066- 6739 May, [place] [address] 83206- 1438 May, UTI symptoms R39.9 ; Pain in right knee M25.561 ; Right low back pain, with sciatica presence unspecified M54.5 ; Right foot pain M79.671 ; Hypokalemia E87.6 and Screening, lipid Z13.220 [place] [address] 79269- 4534 May, [place] [address] 96042- 8118 May, [place] [address] 66452- 3782 Mar, [place] [id number] [place] [address] 33569- 0438 Mar, [place] [address] 75308- 5928 Mar, Hypokalemia E87.6 [place] [address] 88984- 2960 Mar, Pain in right leg M79.604 ; Encounter for immunization Z23 ; Pain in right knee M25.561 and Hypokalemia E87.6 [facility] [address] [place] [address] 72823- 4496 Jan, [facility] [id number] [place] [address] 10379 2546 Jan, [facility] [id number] [place] [address] 28076- 1889 Jan, Abdominal pain, generalized 789.07 [facility] [id number] [place] [address] 26230 2541 Jan, Abdominal pain, generalized 789.07 [facility] [id number] [place] [address] 93183- 8557 Dec, [facility] [id number] [place] [address] 94744- 4983 Dec, [facility] [id number] [place] [address] 51964- 7919 Dec, [facility] [id number] [place] [address] 05862- 4118 Nov, Hallux valgus 735.0 and Hammertoe 735.4 [facility] [id number] [place] [address] 95109- 9344 Nov, [facility] [id number] [place] [address] 05904 2547 Nov, Hallux valgus 735.0 and Hammer toe 735.4 [facility] [address], [place] [address]- 5206 Oct, [facility] [id number] [place] [address] 95530- 0776 Oct, [facility] [address] [place] [address] 15958- 1046 Oct, Pre-op evaluation V72.84 [facility] [address] [facility] [id number], [place] [address]- 3624 Oct, [facility] [address], [place] [address]- 1855 Oct, [facility] [address], [place] [address]- 3988 September, [facility] [id number] [place] [address] 18235- 5947 September, [facility] [address], [place] [address]- 8819 September, Hallux valgus (acquired) 735.0 and Other hammer toe ( acquired) 735.4 [facility] [address], [place] [address]- 1501 Aug, [facility] [id number] [place] [address] 34448- 2430 Aug, [facility] [address], [place] [address]- 1009 Jul, [facility] [address], [place] [address]- 8792 Jul, [facility] [address], [place] [address]- 8906 Jul, [facility] [address], [place] [address]- 0023 Jul, [facility] [address] [id number], [place] [address]- 2229 Jul, [facility] [address] [id number], [place] [address]- 6208 Jul, [facility] [address] [id number], [place] [address]- 3862 Jul, [facility] [address] [id number], [place] [address]- 7132 Jul, [facility] [place] [facility] [address] [id number] [place] [address]- 5399 Jun, 2014 [facility] [place] [facility] [address] [id number] [place] [address]- 2475 Jun, 2014 [facility] [place] [facility] [address] [id number] [place] [address]- 6868 Jun, 2014 [facility] [place] [facility] [address] [id number] [place] [address]- 5084 Jun, 2014 [facility] [place] [facility] [address] [id number] [place] [address]- 7604 Jun, 2014 [facility] [place] [facility] [address] [id number] [place] [address]- 9685 Jun, 2014 [facility] [place] [facility] [address] [facility] [id number] [place] [address]- 0872 Jun, [facility] [place] [facility] [address] [id number] [place] [address]- 9133 Jun, 2014 [facility] [place] [facility] [address] [id number] [place] [address]- 9716 Jun, [facility] [place] [facility] [address] [facility] [id number] [place] [address]- 7479 Jun, [facility] [place] [facility] [address] [id number] [place] [address]- 2687 May, [facility] [place] [facility] [address] [id number], [place] [address]- 2745 May, [facility] [place] [facility] [address] [id number] [place] [address]- 4324 May, [facility] [place] [facility] [address] [id number] [place] [address]- 2284 May, [facility] [place] [facility] [address] [facility] [id number] [place] [address]- 8831 May, [facility] [place] [facility] [address] [id number] [place] [address]- 2935 May, [facility] [address] [id number] [place] [address]- 8455 May, [facility] [place] [facility] [address] [id number] [place] [address]- 7785 May, [facility] [place] [facility] [address] [id number] [place] [address]- 3288 May, [facility] [place] [facility] [address] [id number] [place] [address]- 7824 May, [facility] [place] [facility] [address] [id number] [place] [address]- 7446 May, [facility] [place] [facility] [address] [id number] [place] [address]- 2402 May, [facility] [place] [facility] [address] [id number] [place] [address]- 1319 May, [facility] [place] [facility] [address] [id number] [place] [address]- 8425 May, [facility] [place] [facility] [address] [id number] [place] [address]- 6052 May, [facility] [place] [facility] [address] [id number] [place] [address]- 8852 May, [facility] [place] [facility] [address] [id number] [place] [address]- 5815 May, [facility] [place] [facility] [address] [id number] [place] [address]- 7585 May, [facility] [place] [facility] [address] [id number] [place] [address]- 9260 Apr, [facility] [place] [facility] [address] [id number] [place] [address]- 5134 Apr, [facility] [place] [facility] [address] [id number] [place] [address]- 7331 Apr, [facility] [place] [facility] [address] [id number] [place] [address]- 0028 Apr, [facility] [place] [facility] [address] [id number] [place] [address]- 6774 Apr, [facility] [place] [facility] [address] [id number] [place] [address]- 5242 Apr, [facility] [place] [facility] [address] [id number] [place] [address]- 5147 Apr, [facility] [place] [facility] [address] [id number] [place] [address]- 7754 Apr, [facility] [place] [facility] [address] [id number] [place] [address]- 6854 Apr, [facility] [place] [facility] [address] [id number] [place] [address]- 8926 Mar, [facility] [place] [facility] [address] [id number] [place] [address]- 8486 Mar, [facility] [place] [facility] [address] [id number] [place] [address]- 7733 Mar, [facility] [place] [facility] [address] [id number] [place] [address]- 6647 Mar, [facility] [place] [facility] [address] [id number] [place] [address]- 7823 Mar, [facility] [place] [facility] [address] [id number] [place] [address]- 4620 Feb, [facility] [place] [facility] [address] [id number] [place] [address]- 4084 Feb, [facility] [place] [facility] [address] [id number] [place] [address]- 3342 Feb, [facility] [place] [facility] [address] [id number] [place] [address]- 2493 Feb, [facility] [place] [facility] [address] [id number], [place] [address]- 9345 Feb, 2013 [facility] [place] [facility] [address] [id number] [place] [address]- 8339 16 Feb, 2013 [facility] [place] [facility] [address] [id number] [place] [address]- 2839 Feb, 2013 [facility] [place] [facility] [address] [id number] [place] [address]- 8041 Feb, 2013 [facility] [place] [facility] [address] [id number] [place] 7884 Feb, 2013 [facility] [place] [facility] [address] [id number] [place] [address]- 8883 Feb, 2013 [facility] [place] [facility] [address] [id number] [place] [address]- 3567 Feb, 2013 [facility] [place] [facility] [address] [id number], [place] [address]- 5229 Feb, 2013 [facility] [place] [facility] [address] [id number], [place] [address]- 5882 Feb, 2013 [facility] [place] [facility] [address] [id number], [place] [address]- 1538 Feb, 2013 [facility] [place] [facility] [address] [id number], [place] [address]- 1022 Feb, 2013 [facility] [place] [facility] [address] [id number], [place] [address]- 4782 Feb, 2013 [facility] [place] [facility] [address] [id number], [place] [address]- 4587 Jan, 2013 [facility] [place] [facility] [address] [id number] [place] [address]- 9099 23 Jan, 2013 [facility] [place] [facility] [address] [id number], [place] [address]- 8988 20 Jan, 2013 [facility] [place] [facility] [address] [id number], [place] [address]- 4736 19 Jan, 2013 [facility] [place] [facility] [address] [id number] [place] [address]- 4651 11 Jan, 2013 [facility] [place] [facility] [address] [id number] [place] [address]- 5735 Jan, [facility] [place] [facility] [address] [id number] [place] [address]- 9366 Jan, [facility] [place] [facility] [address] [id number] [place] [address]- 9069 Jan, [facility] [place] [facility] [address] [id number] [place] [address]- 9758 Dec, [facility] [place] [facility] [address] [id number] [place] [address]- 5277 Dec, [facility] [place] [facility] [address] [id number] [place] [address]- 0326 Nov, [facility] [place] [facility] [address] [id number] [place] [address]- 0475 Nov, [facility] [place] [facility] [address] [id number] [place] [address]- 7614 Nov, [facility] [place] [facility] [address] [id number] [place] [address]- 8515 Nov, [facility] [place] [facility] [address] [id number] [place] [address]- 2505 Nov, [facility] [place] [facility] [address] [id number] [place] [address]- 3615 Nov, [facility] [place] [facility] [address] [id number] [place] [address]- 3580 Nov, [facility] [place] [facility] [address] [id number] [place] [address]- 1416 Nov, [facility] [place] [facility] [address] [id number] [place] [address]- 4585 Nov, [facility] [place] [facility] [address] [id number] [place] [address]- 7756 Oct, [facility] [place] [facility] [address] [id number] [place] [address]- 1822 Oct, [facility] [place] [facility] [address] [id number] [place] [address]- 7083 Oct, [facility] [place] [facility] [address] [id number] [place] [address]- 0388 Oct, [facility] [place] [facility] [address] [id number] [place] [address]- 3268 Oct, [facility] [place] [facility] [address] [id number] [place] [address]- 0395 Oct, [facility] [place] [facility] [address] [id number] [place] [address]- 4674 September, [facility] [place] [facility] [address] [id number] [place] [address]- 5423 September, [facility] [place] [facility] [address] [id number] [place] [address]- 3014 September, [facility] [place] [facility] [address] [id number] [place] [address]- 4572 September, [facility] [place] [facility] [address] [id number] [place] [address]- 0801 September, [facility] [place] [facility] [address] [id number] [place] [address]- 7964 September, [facility] [place] [facility] [address] [id number] [place] [address]- 5244 September, [facility] [place] [facility] [address] [id number] [place] [address]- 5650 September, [facility] [place] [facility] [address] [id number] [place] [address]- 9126 September, [facility] [place] [facility] [address] [id number] [place] 7512 September, [facility] [place] [facility] [address] [id number] [place] [address]- 8676 September, [facility] [address] [id number] [place] [address]- 8550 September, [facility] [place] [facility] [address] [id number] [place] [address]- 7943 September, [facility] [place] [facility] [address] [id number] [place] [address]- 3128 September, [facility] [place] [facility] [address] [id number] [place] [address]- 7624 September, [facility] [place] [facility] [address] [id number] [place] [address]- 2390 September, [facility] [place] [facility] [address] [id number] [place] [address]- 7558 September, [facility] [place] [facility] [address] [id number] [place] [address]- 8212 September, [facility] [place] [facility] [address] [id number] [place] [address]- 4535 September, [facility] [place] [facility] [address] [id number] [place] [address]- 2946 September, [facility] [place] [facility] [address] [id number] [place] [address]- 2895 Aug, [facility] [place] [facility] [address] [id number] [place] [address]- 9531 Aug, [facility] [place] [facility] [address] [id number] [place] [address]- 4716 Aug, [facility] [place] [facility] [address] [id number] [place] [address]- 7431 Aug, [facility] [place] [facility] [address] [id number] [place] [address]- 6202 Aug, [facility] [place] [facility] [address] [id number] [place] [address]- 4706 Aug, [facility] [place] [facility] [address] [id number] [place] [address]- 8842 16 Aug, 2013 [facility] [place] [facility] [address] [id number] [place] [address]- 3569 16 Aug, 2013 [facility] [place] [facility] [address] [id number] [place] [address]- 3506 15 Aug, 2013 [facility] [place] [facility] [address] [id number] [place] [address]- 6099 15 Aug, 2013 [facility] [place] [facility] [address] [id number] [place] [address]- 1735 14 Aug, 2013 [facility] [place] [facility] [address] [id number] [place] [address]- 2620 05 Aug, 2013 [facility] [place] [facility] [address] [id number] [place] [address]- 8251 05 Aug, 2013 [facility] [place] [facility] [address] [id number] [place] [address]- 6525 Aug, [facility] [place] [facility] [address] [id number] [place] [address]- 0097 03 Aug, 2013 [facility] [place] [facility] [address] [id number] [place] [address]- 5235 31 Jul, 2013 [facility] [place] [facility] [address] [id number] [place] [address]- 4248 31 Jul, 2013 [facility] [place] [facility] [address] [id number] [place] [address]- 5931 27 Jul, 2013 [facility] [place] [facility] [address] [id number] [place] [address]- 3703 27 Jul, 2013 [facility] [place] [facility] [address] [id number] [place] [address]- 2440 20 Jul, 2013 [facility] [place] [facility] [address] [id number] [place] [address]- 3558 20 Jul, 2013 [facility] [place] [facility] [address] [id number] [place] [address]- 6230 Jul, [facility] [place] [facility] [address] [id number] [place] [address]- 3632 Jul, [facility] [place] [facility] [address] [id number] [place] [address]- 0974 Jul, [facility] [place] [facility] [address] [id number] [place] [address]- 9178 Jul, [facility] [place] [facility] [address] [id number] [place] [address]- 1860 Jul, [facility] [place] [facility] [address] [id number] [place] [address]- 0739 Jul, [facility] [place] [facility] [address] [id number] [place] [address]- 3839 Jul, [facility] [place] [facility] [address] [id number] [place] [address]- 4678 Jul, [facility] [place] [facility] [address] [id number] [place] [address]- 4680 Jul, [facility] [place] [facility] [address] [id number] [place] [address]- 5321 Jun, [facility] [place] [facility] [address] [id number] [place] [address]- 0069 Jun, [facility] [place] [facility] [address] [id number] [place] [address]- 3982 Jun, [facility] [place] [facility] [address] [id number] [place] [address]- 9022 Jun, [facility] [place] [facility] [address] [id number] [place] [address]- 6589 Jun, [facility] [place] [facility] [address] [id number] [place] [address]- 4694 Jun, [facility] [place] [facility] [address] [id number] [place] [address]- 5462 May, [facility] [place] [facility] [address] [id number] [place] [address]- 1236 May, [facility] [address] [id number] [place] [address] May, [facility] [address] [id number] [place] [address] May, [facility] [address] [id number] [place] [address] May, [facility] [address] [id number] [place] [address] May, [facility] [address] [id number] [place] [address] May, [facility] [address] [id number] [place] [address] May, [facility] [address] [id number] [place] [address] May, [facility] [address] [id number] [place] [address] May, [facility] [address] [id number] [place] [address] May, [facility] [address] [id number] [place] [address] May, [facility] [address] [id number] [place] [address] May, [facility] [address] [id number] [place] [address] May, [facility] [place] [facility] [address] [id number] [place] [address] May, [facility] [address] [id number] [place] [address] Apr, [facility] [address] [id number] [place] [id number] Apr, [facility] [place] [facility] [address] [id number] [place] [address] Apr, [facility] [place] [facility] [address] [id number] [place] [address] Apr, [facility] [place] [facility] [address] [id number] [place] [address] Apr, [facility] [place] [facility] [address] [id number] [place] [address] Apr, [facility] [place] [facility] [address] [id number] [place] [address] Apr, [facility] [place] [facility] [address] [id number] [place] [address] Apr, [facility] [place] [facility] [address] [id number] [place] [address] Apr, [facility] [place] [facility] [address] [id number] [place] [address] Apr, [facility] [place] [facility] [address] [id number] [place] [address] Mar, [facility] [place] [facility] [address] [id number] [place] [address] Mar, [facility] [place] [facility] [address] [id number] [place] [address]606 Mar, [facility] [place] [facility] [address] [id number] [place] [address] Mar, [facility] [place] [facility] [address] [id number] [place] [address] Mar, [facility] [place] [facility] [address] [id number] [place] [address] Mar, [facility] [place] [facility] [address] [id number] [place] [address] 69[address] Mar, [facility] [place] [facility] [address] [id number] [place] [address] 9418 Mar, [facility] [address] [id number] [place] [address]- [address] Mar, [facility] [place] [facility] [address] [id number] [place] [address] Mar, [facility] [address] [id number] [place] [address]- [address]18 Mar, [facility] [place] [facility] [address] [id number] [place] [address] Mar, [facility] [address] [id number] [place] [address] Mar, [facility] [place] [facility] [address] [id number] [place] [address]679 Mar, [facility] [address] [id number] [place] [address]- [address]408 Mar, [facility] [place] [facility] [address] [id number], [place] [address] Mar, [facility] [place] [facility] [address] [id number] [place] [address] Mar, [facility] [place] [facility] [address] [id number] [place] [address]- [address] Mar, [facility] [place] [facility] [address] [id number], [place] [address]- [address] Mar, [facility] [place] [facility] [address] [id number], [place] [address] Mar, [facility] [place] [facility] [address] [id number], [place] [address]- [address] Mar, [facility] [place] [facility] [address] [id number], [place] [address]- [address] Mar, [facility] [place] [facility] [address] [id number], [place] [address]- [address] Mar, [facility] [place] [facility] [address] [id number] [place] [address]- [address]992 18 Feb, 2012 [facility] [place] [facility] [address] [id number] [place] [address]- 269[address] 18 Feb, 2012 [facility] [place] [facility] [address] [id number] [place] [address]- 9467 16 Feb, 2012 [facility] [place] [facility] [address] [id number] [place] [address]- 1546 16 Feb, 2012 [facility] [place] [facility] [address] [id number] [place] [address]- [address] 15 Feb, 2012 [facility] [place] [facility] [address] [id number] [place] [address]- [address] 09 Feb, 2012 [facility] [place] [facility] [address] [id number] [place] [address]- [address] 09 Feb, 2012 [facility] [place] [facility] [address] [id number] [place] [address]- [address] 07 Feb, 2013 [facility] [place] [facility] [address] [id number] [place] [address]- [address]171 04 Feb, 2013 [facility] [place] [facility] [address] [id number] [place] [address]- 7643 03 Feb, 2013 [facility] [place] [facility] [address] [id number] [place] [address]- 8714 30 Sep, 2012 [facility] [place] [facility] [address] [id number] [place] [address]- 2548 26 Sep, 2012 [facility] [place] [facility] [address] [id number] [place] [address] 2541 24 Sep, 2012 [facility] [place] [facility] [address] [id number] [place] [address] 2545 23 Sep, 2012 [facility] [place] [facility] [address] [id number] [place] [address]- 2547 17 Sep, 2012 [facility] [place] [facility] [address] [id number] [place] [address]- 8772 Dec, [facility] [place] [facility] [address] [id number] [place] [address]- [address] Dec, [facility] [place] [facility] [address] [id number] [place] [address]- 7869 Dec, [facility] [place] [facility] [address] [id number] [place] [address] Dec, [facility] [place] [facility] [address] [id number] [place] [address] Dec, [facility] [place] [facility] [address] [id number] [place] [address] Dec, [facility] [place] [facility] [address] [id number] [place] [address]551 Dec, [facility] [place] [facility] [address] [id number] [place] [address]115 Nov, [facility] [place] [facility] [address] [id number] [place] [address]- 3489 Nov, [facility] [place] [facility] [address] [id number] [place] [address] 4932 Nov, [facility] [place] [facility] [address] [id number] [place] [address] Nov, [facility] [place] [facility] [address] [id number] [place] [address] 9024 Nov, [facility] [place] [facility] [address] [id number], [place] [address] Oct, [facility] [place] [facility] [address] [id number] [place] [address] 5425 Oct, [facility] [place] [facility] [address] [id number] [place] [address]- 9941 Oct, [facility] [place] [facility] [address] [id number] [place] [address]- 7157 September, [facility] [place] [facility] [address] [id number] [place] [address]- 0930 September, [facility] [address] [id number] [place] [address]70 September, [facility] [address] [id number] [place] [address]- 0736 September, [facility] [address] [id number] [place] [address] 6[address] September, [facility] [address] [id number] [place] [address] 8537 September, [facility] [address] [id number] [place] [address] 9444 September, [facility] [address] [id number] [place] [address]- 1668 30 Aug, 2012 [facility] [address] [id number] [place] [address] 5060 Aug, [facility] [address] [id number] [place] [address] 8001 Aug, [facility] [address] [id number] [place] [address]- 4642 29 Jul, 2012 [facility] [address] [id number] [place] [address]- 5219 27 Jul, 2012 [facility] [address] [id number] [place] [address]- 5363 26 Jul, 2012 [facility] [address] [id number] [place] [address]- 5911 20 Jul, 2012 [facility] [address] [id number] [place] [address]- 2916 18 Jul, 2012 [facility] [address] [id number] [place] [address]- 1544 18 Jul, 2012 [facility] [address] [id number] [place] [address]- 9084 Jul, [facility] [place] [facility] [address] [id number] [place] [address]- 6172 Jun, [facility] [place] [facility] [address] [id number] [place] [address]- 9606 Jun, [facility] [place] [facility] [address] [id number] [place] [address] 2546 Jun, [facility] [place] [facility] [address] [id number] [place] [address] 2546 Jun, [facility] [place] [facility] [address] [id number] [place] [address] 2546 Jun, [facility] [place] [facility] [address] [id number] [place] [address]- 7556 Jun, [facility] [place] [facility] [address] [id number] [place] [address]- 5176 Jun, [facility] [place] [facility] [address] [id number] [place] [address]- 5933 Jun, [facility] [place] [facility] [address] [id number] [place] [address]- 8192 Jun, [facility] [place] [facility] [address] [id number] [place] [address]- 9776 Jun, [facility] [place] [facility] [address] [id number] [place] [address]- 7587 May, [facility] [place] [facility] [address] [id number] [place] [address]- 4206 May, [facility] [place] [facility] [address] [id number] [place] [address] 2546 May, [facility] [place] [facility] [address] [id number] [place] [address]- 8008 May, [facility] [place] [facility] [address] [id number] [place] [address]- 1364 May, [facility] [place] [facility] [address] [id number] [place] [address]- 6263 07 May, 2012 [facility] [address] [id number] [place] [address]- 3256 31 Apr, 2012 [facility] [place] [facility] [address] [id number] [place] [address]- 9706 31 Apr, 2012 [facility] [address] [id number] [place] [address]- 5283 28 Apr, 2012 [facility] [address] [id number] [place] [address]- 3251 28 Apr, 2012 [facility] [address] [id number] [place] [address], [place] [address]- [address]776 26 Apr, 2012 [facility] [address] [id number] [place] [address]- 6836 Apr, [facility] [address] [id number] [place] [address]- 8828 Apr, [facility] [address] [id number] [place] [address]- 0923 29 Mar, 2012 [facility] [address] [id number] [place] [address]- 5154 29 Mar, 2012 [facility] [address] [facility] [id number] [place] [address]- 2332 27 Mar, 2012 [facility] [place] [facility] [address] [id number] [place] [address]- 0268 Mar, [facility] [address] [id number] [place] [address]- 6624 20 Mar, 2012 [facility] [place] [facility] [address] [id number] [place] [address]- 4407 18 Mar, 2012 [facility] [place] [facility] [address] [id number] [place] [address]- 2522 18 Mar, 2012 [facility] [place] [facility] [address] [id number] [place] [address]- 2370 Mar, [facility] [place] [facility] [address] [id number] [place] [address]- 7337 Mar, [facility] [place] [facility] [address] [id number] [place] [address]- 7236 Mar, [facility] [place] [facility] [address] [id number] [place] [address]- 3057 Mar, [facility] [place] [facility] [address] [id number] [place] [address]- 1568 Mar, [facility] [place] [facility] [address] [id number] [place] [address]- 3758 Mar, [facility] [place] [facility] [address] [id number] [place] [address]- 2828 Mar, [facility] [place] [facility] [address] [facility] [id number] [place] [address]- 4476 Mar, [facility] [place] [facility] [address] [id number], [place] [address]- 9808 Mar, [facility] [place] [facility] [address] [facility] [id number], [place] [address]- 8594 Mar, [facility] [place] [facility] [address] [facility] [id number], [place] [address]- 5509 Feb, [facility] [place] [facility] [address] [facility] [id number], [place] [address]- 4745 Feb, [facility] [place] [facility] [address] [id number], [place] [address]- 0601 Feb, [facility] [place] [facility] [address] [id number] [address] Feb, [facility] [place] [facility] [address] [id number], [place] [address]- 3072 Feb, [facility] [place] [facility] [address] [facility] [id number], [place] [address]- 9115 Feb, [facility] [place] [facility] [address] [id number], [place] [address]- 5563 Feb, [facility] [place] [facility] [address] [id number] [place] [address]- 7115 Feb, [facility] [place] [facility] [address] [id number] [place] [address]- 9236 05 Feb, 2012 [facility] [place] [facility] [address] [id number] [place] [address]- 0611 Feb, [facility] [place] [facility] [address] [id number] [place] [address]- 7090 02 Feb, 2012 [facility] [place] [facility] [address] [id number] [place] [address]- 3774 27 Jan, 2012 [facility] [place] [facility] [address] [id number] [place] [address]- 5818 25 Jan, 2012 [facility] [place] [facility] [address] [id number] [place] [address]- 1876 13 Jan, 2012 [facility] [place] [facility] [address] [id number] [place] [address]- 1952 12 Jan, 2012 [facility] [place] [facility] [address] [id number] [place] [address]- 8109 07 Jan, 2012 [facility] [place] [facility] [address] [id number] [place] [address]- 2622 31 Dec, 2011 [facility] [place] [facility] [address] [id number] [place] [address]- 3682 24 Dec, 2011 [facility] [place] [facility] [address] [id number] [place] [address]- 0142 22 Dec, 2011 [facility] [place] [facility] [address] [id number] [place] [address]- 8092 18 Dec, 2011 [facility] [place] [facility] [address] [id number] [place] [address]- 2875 16 Dec, 2011 [facility] [place] [facility] [address] [facility] [id number] [place] [address]- 2175 10 Dec, 2011 [facility] [place] [facility] [address] [id number] [place] [address]- 2546 Dec, [facility] [place] [facility] [address] [id number] [place] [address]- 5286 Dec, [facility] [place] [facility] [address] [id number] [place] [address]- 2546 Nov, [facility] [place] [facility] [address] [id number] [place] [address]- 7396 Nov, [facility] [place] [facility] [address] [id number] [place] [address]- 7238 Nov, [facility] [place] [facility] [address] [id number] [place] [address]- 2826 Nov, [facility] [place] [facility] [address] [id number] [place] [address]- 2546 Nov, [facility] [place] [facility] [address] [id number] [place] [address]- 8616 Oct, [facility] [place] [facility] [address] [id number] [place] [address]- 6759 Oct, [facility] [place] [facility] [address] [id number] [place] [address]- 4986 September, [facility] [place] [facility] [address] [id number] [place] [address]- 9646 September, [facility] [place] [facility] [address] [id number] [place] [address]- 9166 September, [facility] [place] [facility] [address] [id number] [place] [address]- 2546 September, [facility] [place] [facility] [address] [id number] [place] [address]- 0426 September, [facility] [place] [facility] [address] [id number] [place] [address]- 2546 September, [facility] [place] [facility] [address] [id number] [place] [address]- 8333 September, [facility] [address] [id number] [place] [address]- 2668 September, [facility] [address] [id number] [place] [address]- 3373 September, [facility] [address] [id number] [place] [address]- 0550 September, [facility] [address] [id number] [place] [address]- 5565 September, [facility] [address] [id number] [place] [address]- 1674 September, [facility] [address] [id number] [place] [address]- 4494 September, [facility] [address] [id number] [place] [address]- 0699 September, [facility] [address] [id number] [place] [address]- 3903 Aug, [facility] [address] [id number] [place] [address]- 1951 Aug, [facility] [address] [id number] [place] [address]- 2757 Aug, [facility] [address] [id number] [place] [address]- 8390 Aug, [facility] [address] [id number] [place] [address]- 1769 23 Jul, 2011 [facility] [address] [id number] [place] [address]- 0944 13 Jul, 2011 [facility] [address] [id number] [place] [address]- 4894 Jul[facility] [address] [id number] [place] [address]- 7245 28 Jun, [address] [facility] [address] [id number] [id number] 26 Jun, 2011 [facility] [address] [id number] [place] [address]- 9386 13 Jun, 2011 [facility] [address] [id number] [place] [address]- 2266 10 Jun, 2011 [facility] [address] [id number] [place] [address]- 0336 07 Jun, 2011 [facility] [address] [id number] [place] [address]- 8597 07 Jun, 2011 [facility] [address] [id number] [place] [address]- 4484 03 Jun, 2011 [facility] [address] [id number] [place] [address]- 6269 Jun, [facility] [id number] [place] [address]- 0583 May, [facility] [address] [id number] [place] [address]- 3030 May, [facility] [id number] [place] [address]- 0873 May, [facility] [address] [facility] [id number] [place] [address]- 3426 May, [facility] [address] [id number] [place] [address]- 7112 May, [facility] [address] [id number] [place] [address]- 4305 May, [facility] [place] [facility] [address] [id number] [place] [address]- 3635 May, [facility] [place] [facility] [address] [id number] [place] [address]- 2543 May, [facility] [place] [facility] [address] [id number] [place] [address]- 1759 May, [facility] [place] [facility] [address] [id number] [place] [address]- 2117 19 May, 2011 [facility] [place] [facility] [address] [id number] [place] [address]- 5885 17 May, 2011 [facility] [place] [facility] [address] [id number] [place] [address]- 5629 13 May, 2011 [facility] [place] [facility] [address] [id number] [place] [address]- 6582 May, [facility] [place] [facility] [address] [id number] [place] [address]- 9498 May, [facility] [place] [facility] [address] [id number] [place] [address]- 9025 30 Apr, 2011 [facility] [place] [facility] [address] [id number] [place] [address]- 6116 16 Apr, 2011 [facility] [place] [facility] [address] [id number] [place] [address]- 5684 Apr, [facility] [place] [facility] [address] [id number] [place] [address]- 6929 Mar, [facility] [place] [facility] [address] [id number] [place] 8163 Mar, [facility] [place] [facility] [address] [id number] [place] [address]- 8109 Feb, [facility] [place] [facility] [address] [id number], [place] [address]- 0547 Feb, [facility] [place] [facility] [address] [id number] [place] [address]- 0994 Feb, [facility] [place] [facility] [address] [id number] [place] [address]- 9957 20 Feb, 2011 [facility] [place] [facility] [address] [id number], [place] [address]- 8266 13 Feb, 2011 [facility] [place] [facility] [address] [id number], [place] [address]- 8579 28 Apr, 2010 [facility] [place] [facility] [address] [id number] [place] [address]- 6806 22 Apr, 2010 [facility] [place] [facility] [address] [id number] [place] [address] 2546 16 Apr, 2010 [facility] [place] [facility] [address] [id number] [place] [address]- 4186 15 Apr, 2010 [facility] [place] [facility] [address] [id number] [place] [address] 2546 15 Apr, 2010 [facility] [place] [facility] [address] [id number] [place] [address]- 8960 Apr, [facility] [place] [facility] [address] [id number] [place] [address]- 6927 24 Mar, 2010 [facility] [place] [facility] [address] [id number] [place] [address]- 6637 Mar, [facility] [place] [facility] [address] [id number] [place] [address]- 6824 Mar, [facility] [place] [facility] [address] [id number] [place] [address]- 4958 28 Feb, 2010 [facility] [place] [facility] [address] [id number] [place] [address]- 8092 Feb, [facility] [place] [facility] [address] [id number], [place] [address]- 9926 Feb, [facility] [place] [facility] [address] [id number], [place] [address]- 7052 15 Feb, 2010 [facility] [place] [facility] [address] [id number] [place] [address]- 0928 18 Dec, 2009 [facility] [place] [facility] [address] [id number] [place] [address]- 4711 Dec, [facility] [place] [facility] [address] [id number] [place] [address]- 1895 15 Oct, 2009 [facility] [place] [facility] [address] [facility] [id number] [place] [address]- 1517 11 Mar, 2009 [facility] [address] [facility] [id number], [place] [address]- 6643 11 Mar, 2009 [facility] [address] [facility] [id number] [place] [address] September, IMMUNIZATIONS No Known Immunizations SOCIAL HISTORY Never Assessed REASON FOR VISIT COPD, PT has concerns of a possible UTI due to lower limbs and side pain- Pat [facility] PLAN OF CARE Activity Details Follow Up prn Reason: VITAL SIGNS Height 64 in 2017-05-03 Weight 119.6 lbs 2017-05-03 Temperature 97.6 degrees Fahrenheit 2017-05-03 Heart Rate 91 bpm 2017-05-03 Respiratory Rate 16 2017-05-03 Oximetry 93 % 2017-05-03 BMI 20.53 kg/m2 2017-05-03 Blood pressure systolic 124 mmHg 2017-05-03 Blood pressure diastolic 68 mmHg 2017-05-03 MEDICATIONS Medication Instructions Dosage Frequency Start Date End Date Duration Status Toprol XL 50 MG Orally once daily 1 tablet 24h Aug, 30 Active Motrin 800 MG Orally Three times a day 1 tablet with food or milk 8h Not-Taking Fluticasone Propionate 50 MCG/ACT Nasally twice a day 1 spray in each nostril 12h Feb, 30 day(s) Active Lactobacillus - Orally 4 times a day 2 capsules 6h Not-Taking Ciprofloxacin HCl 500 mg Orally Twice a day 1 tablet 12h Apr, Apr, 07 days Active Bentyl 20 MG Orally Once a day 1 tablet 24h Active Lansoprazole 30 MG Orally Once a day 1 capsule 24h 30 days Active Phenazopyridine HCl 200 MG Orally Three times a day 1 tablet after meals 8h Not-Taking Dicyclomine HCl 20 MG Orally 2 times a day 1 tablet 30 to 60 minutes before meals 12h 90 days Not-Taking Potassium Chloride ER 20 MEQ Orally Once a day 1 capsule 24h 18 Mar, 2015 90 days Not-Taking Neurontin 100 mg Orally 3 times a day 1 capsule 8h 25 Sep, 2016 30 days Not-Taking Chlordiazepoxide HCl 10 MG Orally Three times a day 2 capsules 8h Aug, 28 days Active Robaxin 500 mg Orally 4 times a day 1 tablet 6h 30 Active Acetaminophen-Codeine #3 300-30 MG Orally every 6 hrs 1 tablet as needed 6h Oct, 28 days Active Levofloxacin 750 MG Orally Once a day 1 tablet 24h Not-Taking Ibuprofen 600 MG Orally Three times a day 1 tablet with food as needed 8h Not-Taking Dicyclomine HCl 20 mg Orally Four times a day prn 1 tablet Apr, Active Ventolin HFA 108 (90 Base) MCG/ACT Inhalation every 4 hrs 2 puffs as needed 4h Nov, Active Trazodone HCl 50 mg Orally Once a day 1-2 tablet at bedtime as needed 24h 19 Apr, 2016 Not-Taking Vagifem 10 MCG Vaginal Two times a Week 1 tablet Jul, 30 day( s) Not-Taking Cefdinir 300 MG Orally every 12 hrs 1 capsule 12h Not-Taking Loratadine 10 MG Orally Once a day 1 tablet 24h 30 Not-Taking RESULTS No Results PROCEDURES Procedure Date Ordered Result Body Site URINALYSIS, AUTO, W/O SCOPE May 03, 2017 MEASURE BLOOD OXYGEN LEVEL May 03, 2017 [facility] VISIT ESTABLISHED PATIENT May 03, 2017 [facility] May 03, 2017 VENIPUNCT, ROUTINE* May 03, 2017 INSTRUCTIONS MEDICATIONS ADMINISTERED No Known Medications [...]
--- OUTSIDE RECORDS SUMMARY | 2017-11-27 15:42 | XMS REPORT ---
Author Author VALERIE ZAVALA [facility] Address [address] [place] [address] Care Team Providers Care Copy Operator Name Role Phone VALERIE ZAVALA Unavailable PROBLEMS Type Condition ICD9-CM Code CIN13-LE Code Onset Dates Condition Status SNOMED Code Problem Generalized anxiety disorder F41.1 Active 20058483 Problem Hypokalemia E87.6 Active 406099483 Problem Right low back pain, with sciatica presence unspecified M54.5 Active 703750164 Problem Post-traumatic stress disorder, chronic F43.12 Active 95187144 Problem Pain in right knee M25.561 Active 79630243 Problem Gastroesophageal reflux disease without esophagitis K21.9 Active 635965524 Problem UTI symptoms R39.9 Active 16111329 Problem Essential hypertension I10 Active 92207234 Problem Anxiety F41.9 Active 74672828 Problem Neuropathy G62.9 Active 652238278 Problem Other chronic pain G89.29 Active 56590723 Problem Generalized abdominal pain R10.84 Active 061107503 Problem Chronic pain G89.29 Active 20830952 Problem Back pain M54.9 Active 435575199 Problem Right foot pain M79.671 Active 03496713 Problem Panic attacks F41.0 Active 886503826 Problem Other emphysema J43.8 Active 95285103 Problem Kidney stones N20.0 Active 82215644 Problem Renal calculus, right N20.0 Active 88634647 Problem Weight decrease R63.4 Active 762485144 Problem Tobacco abuse Z72.0 Active 33195934 Problem Bone pain M89.8X9 Active 61174271 Problem Depression, unspecified depression type F32.9 Active 18222421 Problem Insomnia, unspecified type G47.00 Active 391051763 Problem Pulmonary emphysema, unspecified emphysema type J43.9 Active 95063694 Problem Right upper quadrant abdominal pain R10.11 Active 785588486 Problem Weight loss R63.4 Active [id number] ALLERGIES No Information ENCOUNTERS Encounter Location Date Diagnosis [facility] [address] [address] Nov, [facility] [id number] [place] [address] 16103- 7287 Oct, Medicare welcome exam Z00.00 [facility] [id number] [place] [address] 55288- 1545 18 Oct, 2017 Gross hematuria R31.0 ; Urinary tract infection without hematuria, site unspecified N39.0 and Weakness R53.1 [facility] [id number] [place] [address] 49158- 2691 Oct, [facility] [id number] [place] [address] 76603- 7543 Oct, [facility] [id number] [place] [address] 16222- 6667 Oct, Medicare welcome exam Z00.00 [facility] [id number] [place] [address] 00054- 7142 September, Back pain M54.9 and Right anterior knee pain M25.561 [facility] [id number] [place] [address] 31381- 0651 September, [facility] [id number] [place] [address] 70985- 3371 September, [facility] [id number] [place] [address] 78534- 7504 September, Essential hypertension I10 [facility] [id number] [place] [address] 60106- 2972 September, [facility] [id number] [place] [address] 55582- 0910 September, RLQ abdominal pain R10.31 ; Low back pain M54.5 and Other chronic pain G89.29 [facility] [id number] [place] [address] 79741- 0839 Aug, Medicare welcome exam Z00.00 [facility] [id number] [place] [address] 64145- 5404 Aug, [facility] [id number] [place] [address] 98588 2546 Aug, Acute pyelonephritis N10 and Medicare welcome exam Z00.00 [facility] [id number] [place] [address] 24540 -7646 Aug, Dysuria R30.0 and Acute pyelonephritis N10 [facility] [id number] [place] [address] 59755- 9436 Aug, [facility] [id number] [place] [address] 10161- 0145 Aug, [facility] [id number] [place] [address] 76642- 5840 Aug, [facility] [id number] [place] [address] 42674- 5046 Aug, [facility] [id number] [place] [address] 38542- 0942 Jul, [facility] [id number] [place] [address] 22363- 7790 Jul, Renal calculus, right N20.0 and Medicare welcome exam Z00.00 [facility] [id number] [place] [address] 71321 -9693 Jul, Dysuria R30.0 and Renal calculus, right N20.0 [facility] [id number] [place] [address] 65506- 3200 Jul, Medicare welcome exam Z00.00 [facility] [id number] [place] [address] 47719- 1703 13 Jun, 2017 Gastroesophageal reflux disease without esophagitis K21.9 and Generalized abdominal pain R10.84 [facility] [address] [address] 6246 09 Jun, 2017 Medicare welcome exam Z00.00 [facility] [id number] [place] [address] 35117- 4145 05 Jun, 2017 [facility] [id number] [place] [address] 63499- 8821 05 Jun, 2017 Medicare welcome exam Z00.00 and Encounter for screening mammogram for malignant neoplasm of breast Z12.31 [facility] [id number] [place] [address] 32216- 2918 02 Jun, 2017 Chronic pain G89.29 [facility] [id number] [place] [address] 02938- 9221 May, [facility] [id number] [place] [address] 02149- 8922 May, Pelvic pain R10.2 [facility] [id number] [place] [address] 30360- 9993 May, Pelvic pain R10.2 [facility] [id number] [place] [address] 96174 -3152 May, Renal calculus, right N20.0 [facility] [id number] [place] [address] 03273- 1547 May, Hematuria, unspecified type R31.9 and Nephrolithiasis N20.0 [facility] [id number] [place] [address] 59295 -5117 May, Dysuria R30.0 and Nephrolithiasis N20.0 [facility] [id number] [place] [address] 72884- 6207 May, [facility] [id number] [place] [address] 40942 -5427 May, Abdominal pain R10.9 and Kidney stone N20.0 [facility] [id number] [address]- 6396 May, [facility] [id number] [place] [address] 52340- 7346 May, Chronic pain G89.29 and Panic attacks F41.0 [facility] [address] [address] 0814 May, Urinary tract infection without hematuria, site unspecified N39.0 [facility] [address] [address]- 7089 Apr, Right lower quadrant abdominal pain R10.31 and Abnormal serum lipase level R74.8 [facility] [address] [address] 6353 Apr, Recurrent urinary tract infection N39.0 [facility] [address] [address] 1354 Apr, UTI symptoms R39.9 ; Recurrent urinary tract infection N39.0 and Pelvic pain R10.2 [facility] [address] [address]- 2339 Apr, Chronic pain G89.29 and Panic attacks F41.0 [facility] [address] [address]- 9683 Apr, Dysuria R30.0 [facility] [address] [address]- 5793 Apr, [facility] [id number] [address]- 2852 Apr, Dysuria R30.0 and Urinary tract infection without hematuria , site unspecified N39.0 [facility] [address] [address]- 7286 Mar, UTI symptoms R39.9 [facility] [id number] [address]- 4678 Mar, [facility] [id number] [place] [address] 12238- 9677 Mar, Panic attacks F41.0 and Chronic pain G89.29 [facility] [address] 66126- 1078 Mar, [facility] [address] 79521- 2000 Mar, Dysuria R30.0 [facility] [address] 22319- 2054 Mar, Dysuria R30.0 [facility] [address] 06910- 9308 Feb, Chronic pain G89.29 ; Shortness of breath R06.02 ; Weight loss R63.4 ; Encounter for immunization Z23 ; Bone pain M89.8X9 ; Right anterior knee pain M25.561 and Cough R05 [facility] [address] 45694- 3458 Feb, Shortness of breath R06.02 [facility] [id number] [place] [address] 86291- 9636 Feb, [facility] [id number] [place] [address] 01445- 3575 Feb, Panic attacks F41.0 and Chronic pain G89.29 [facility] [id number] [place] [address] 39910- 9180 Feb, [facility] [id number] [place] [address] 53684- 1717 Feb, Panic attacks F41.0 ; Shortness of breath R06.02 and Encounter for immunization Z23 [facility] [id number] [place] [address] 26342- 8320 Jan, [facility] [id number] [place] [address] 29811- 0106 15 Jan, 2017 Anxiety F41.9 and Chronic pain G89.29 [facility] [id number] [place] [address] 31449- 6297 Dec, Anxiety F41.9 and Chronic pain G89.29 [facility] [id number] [place] [address] 55852- 9344 Nov, Chronic pain G89.29 [facility] [id number] [place] [address] 33819- 4812 Nov, Anxiety F41.9 [facility] [address] 54093- 3276 Nov, Chronic pain G89.29 ; Essential hypertension I10 and Other emphysema J43.8 [facility] [id number] [place] [address] 90023- 8211 Oct, Anxiety F41.9 [facility] [id number] [place] [address] 10006- 7097 Oct, [facility] [id number] [place] [address] 61002- 0525 Oct, Chronic pain G89.29 [facility] [id number] [place] [address] 88123- 2254 September, Recurrent UTI N39.0 ; Neuropathy G62.9 and Anxiety F41.9 [facility] [id number] [place] [address] 26225- 9626 September, [facility] [id number] [place] [address] 19289- 1701 September, Chronic pain G89.29 [facility] [id number] [place] [address] 58435- 7259 September, [facility] [id number] [place] [address] 61297- 4189 Aug, Post-traumatic stress disorder, chronic F43.12 ; Chronic urinary tract infection N39.0 ; Gastroesophageal reflux disease without esophagitis K21.9 ; Chronic pain G89.29 ; Essential hypertension I10 and Tobacco abuse Z72.0 [facility] [address] [address] Aug, [facility] [id number] [place] [address] 90657- 8483 Aug, Chronic pain G89.29 [facility] [id number] [place] [address] 17825- 6220 Aug, Insomnia, unspecified type G47.00 [facility] [id number] [place] [address] 61679- 6316 Aug, [facility] [id number] [place] [address] 29418- 4546 24 Jul, 2016 Chronic pain G89.29 [facility] [id number] [place] [address] 73182- 0845 Jul, [facility] [id number] [place] [address] 67913- 6656 Jul, [facility] [id number] [place] [address] 90539- 8391 Jul, [facility] [id number] [place] [address] 33955- 8542 15 Jul, 2016 Recurrent UTI (urinary tract infection) N39.0 [facility] [address] [address]- 9493 14 Jul, 2016 [facility] [id number] [place] [address] 48407- 2540 Jun, Chronic pain G89.29 [facility] [address] [address]- 4906 17 Jun, 2016 [facility] [address] [address]- 1937 Jun, [facility] [id number] [place] [address] 66400- 2755 May, Chronic pain G89.29 [facility] [id number] [place] [address] 40014- 4554 May, Weight loss R63.4 and Shortness of breath R06.02 [facility] [id number] [place] [address] 37992- 9779 May, Chronic pain G89.29 ; Weight loss R63.4 and Tobacco abuse Z72.0 [facility] [address] 74956- 1960 May, [facility] [address] 35583- 9908 May, Hypoxia R09.02 [facility] [address] 25431- 9556 May, [facility] [address] 21048- 2641 May, Pulmonary emphysema, unspecified emphysema type J43.9 [facility] [id number] [place] [address] 50688 -0808 May, [facility] [id number] [place] [address] 72508- 1863 May, [facility] [id number] [place] [address] 44802- 8815 May, [facility] [id number] [place] [address] 50333- 6484 May, Chronic pain G89.29 ; Encounter for immunization Z23 ; Right anterior knee pain M25.561 and Cough R05 [facility] [address] 16295- 2778 Apr, Chronic pain G89.29 [facility] [id number] [place] [address] 22827- 5389 Apr, [facility] [address] 06043- 8897 Apr, Generalized anxiety disorder F41.1 and Depression, unspecified depression type F32.9 [facility] [id number] [place] [address] 07802- 7151 Apr, Chronic pain G89.29 ; Hypokalemia E87.6 and Insomnia, unspecified type G47.00 [facility] [id number] [place] [address] 96590- 0556 Apr, [facility] [id number] [place] [address] 97940- 0600 Apr, Chronic pain G89.29 [facility] [id number] [place] [address], [place] [address]- 9079 Apr, [facility] [id number] [place] [address] 07860- 0555 Mar, [facility] [id number] [place] [address] 16974- 7794 Mar, Insomnia, unspecified type G47.00 [facility] [id number] [place] [address] 71646- 7135 Mar, Chronic pain G89.29 [facility] [id number] [place] [address] 17309- 3142 Mar, [facility] [id number] [place] [address] 69922- 9217 Feb, [facility] [id number] [place] [address] 62447- 1389 Feb, [facility] [id number] [place] [address] 21433- 1221 Feb, [facility] [id number] [place] [address] 33568- 8678 Feb, [facility] [id number] [place] [address] 41109- 8151 Feb, [facility] [address] [address]- 4962 29 Jan, 2016 [facility] [id number] [place] [address] 06448- 0217 26 Jan, 2016 [facility] [id number] [place] [address] 91287- 1010 20 Jan, 2015 [facility] [id number] [place] [address] 15532- 5704 13 Jan, 2016 [facility] [id number] [place] [address] 00272- 8170 12 Jan, 2016 [facility] [id number] [place] [address] 68350- 2338 07 Jan, 2016 Chronic pain G89.29 [facility] [id number] [place] [address] 08900- 4102 Jan, Chronic pain G89.29 and Fibromyalgia M79.7 [facility] [id number] [place] [address] 91209- 9262 Dec, Depression, unspecified depression type F32.9 and Generalized anxiety disorder 300.02 [facility] [id number] [place] [address] 34819- 0836 Dec, Dysthymia F34.1 ; Insomnia, unspecified type G47.00 and Chronic pain G89.29 [facility] [id number] [place] [address] 01009- 3623 Dec, Chronic pain G89.29 [facility] [id number] [place] [address] 65179- 7790 Dec, Insomnia, unspecified type G47.00 [facility] [id number] [place] [address] 37768- 7423 Dec, Fibromyalgia M79.7 and Chronic pain G89.29 [facility] [id number] [place] [address] 30048- 6317 Dec, [facility] [address] [address]- 1018 Dec, [facility] [id number] [place] [address] 06962- 9398 Dec, [facility] [id number] [place] [address] 26407- 9038 Dec, [facility] [id number] [place] [address] 20400- 9226 Dec, Chronic pain G89.29 [facility] [id number] [place] [address] 96819- 3442 Dec, [facility] [id number] [place] [address] 81149- 9481 Dec, [facility] [id number] [place] [address] 15636- 2036 Dec, [facility] [id number] [place] [address] 77527- 3032 Dec, Chronic pain G89.29 and Dysthymia F34.1 [facility] [id number] [place] [address] 61820- 6541 Nov, [facility] [id number] [place] [address] 33536- 8941 Nov, Hypokalemia E87.6 and Chronic pain G89.29 [facility] [id number] [place] [address] 09214- 5563 Nov, Back pain M54.9 and Pain in right knee M25.561 [facility] [id number] [place] [address] 81668- 8152 Nov, [facility] [id number] [place] [address] 11447- 0251 Nov, Chronic pain G89.29 [facility] [address] [place] [address] 08460- 5775 Nov, Chronic pain G89.29 ; Weight loss R63.4 ; Bone pain M89.8X9 and Insomnia, unspecified type G47.00 [facility] [id number] [place] [address] 89219- 1483 Nov, Chronic pain G89.29 [facility] [id number] [place] [address] 45441 2546 Nov, Chronic pain G89.29 [facility] [id number] [place] [address] 66473- 7204 Oct, Chronic pain G89.29 [facility] [id number] [place] [address] 58536- 1170 Oct, UTI symptoms R39.9 [facility] [id number] [place] [address] 34600- 4195 Oct, Chronic pain G89.29 [facility] [id number] [place] [address] 64117- 6531 Oct, Chronic pain G89.29 [facility] [id number] [place] [address] 87309- 4693 Oct, Chronic pain G89.29 [facility] [id number] [place] [address] 04262- 2459 Oct, Right upper quadrant abdominal pain R10.11 [facility] [id number] [place] [address] 93779- 5731 Oct, Chronic pain G89.29 [facility] [id number] [place] [address] 13360 2545 Oct, [facility] [id number] [place] [address] 33010- 9085 September, Chronic pain G89.29 [facility] [id number] [place] [address] 55919- 8554 September, Dysuria R30.0 and Urinary tract infection without hematuria , site unspecified N39.0 [id number] [address] September, [facility] [id number] [place] [address] 36517- 4700 September, Dysuria R30.0 [facility] [id number] [address] 8[address] September, Chronic pain G89.29 [facility] [id number] [place] [address] 09598 2543 September, Chronic pain G89.29 and Essential hypertension I10 [facility] [id number] [place] [address] 67372- 7309 September, [facility] [id number] [place] [address] 28321- 9011 September, [facility] [id number] [place] [address] 38416- 5424 September, [facility] [id number] [place] [address] 30927- 6494 Aug, UTI symptoms R39.9 [facility] [id number] [place] [address], [place] [address]- [address]43 Aug, Dysuria R30.0 [facility] [id number] [place] [address] 00444- 6358 Aug, [facility] [id number] [place] [address] 41670- 1976 Aug, [facility] [id number] [address] Aug, [facility] [id number] [place] [address] 36743- 2549 Aug, Chronic pain G89.29 [facility] [id number] [address] Aug, Dysthymia F34.1 [facility] [id number] [address] 49[address] Aug, Conjunctivitis, unspecified conjunctivitis type, unspecified laterality H10.9 [facility] [id number] [address] 31 Jul, 2015 Chronic pain G89.29 ; Back pain M54.9 ; Tobacco abuse Z72.0 and Weight decrease R63.4 [facility] [id number] [place] [address] 27943- 6220 30 Jul, 2015 [facility] [id number] [place] [address] 15501- 8301 30 Jul, 2015 [facility] [id number] [place] [address] 34845- 6641 24 Jul, 2015 Chronic pain G89.29 [facility] [id number] [address] 8026 22 Jul, 2015 [facility] [address] [address] 9093 21 Jul, 2015 [facility] [address] [address]- 2086 18 Jul, 2015 [facility] [address] [address] 1830 17 Jul, 2015 [facility] [address] [address]- 5173 17 Jul, 2015 Chronic pain G89.29 [facility] [address] [address]- 2635 16 Jul, 2015 Chronic pain G89.29 [facility] [id number] [address]- 1683 15 Jul, 2015 [facility] [address] [address] 2494 10 Jul, 2015 [facility] [address] [address]- 1242 Jul, [facility] [id number] [place] [address] 58185- 2924 Jul, [facility] [address] [address]- 0029 Jun, [facility] [id number] [place] [address] 59237- 4188 Jun, Depression, unspecified depression type F32.9 [facility] [address] [address]- 3089 Jun, Pain in right knee M25.561 [address] [address] 29466- 3050 Jun, Chronic pain G89.29 ; Back pain M54.9 ; Bone pain M89.8X9 and Weight loss R63.4 [place] [address] 05355- 1727 Jun, [facility] [id number] [place] [address] 76399- 3354 May, [place] [id number] [place] [address] 10490- 3049 May, UTI symptoms R39.9 ; Pain in right knee M25.561 ; Right low back pain, with sciatica presence unspecified M54.5 ; Right foot pain M79.671 ; Hypokalemia E87.6 and Screening, lipid Z13.220 [facility] [id number] [place] [address] 64530- 9503 May, [place] [address] 58998- 5950 May, [facility] [id number] [place] [address] 10046- 3777 Mar, [facility] [id number] [place] [address] 40519- 5007 Mar, [facility] [id number] [place] [address] 39780- 9070 Mar, Hypokalemia E87.6 [facility] [id number] [place] [address] 46327- 5788 Mar, Pain in right leg M79.604 ; Encounter for immunization Z23 ; Pain in right knee M25.561 and Hypokalemia E87.6 [facility] [id number] [place] [address] 87035- 3316 Jan, [facility] [id number] [place] [address] 82796- 8396 Jan, [facility] [id number] [place] [address] 77219- 6127 Jan, Abdominal pain, generalized 789.07 [facility] [id number] [place] [address] 43263- 3280 Jan, Abdominal pain, generalized 789.07 [facility] [id number] [place] [address] 45807- 6049 Dec, [facility] [id number] [place] [address] 63000- 7127 Dec, [facility] [id number] [place] [address] 85224- 4581 Dec, [facility] [id number] [place] [address] 29675- 1065 Nov, Hallux valgus 735.0 and Hammertoe 735.4 [facility] [id number] [place] [address] 40495- 1546 Nov, [facility] [id number] [place] [address] 03591- 6836 Nov, Hallux valgus 735.0 and Hammer toe 735.4 [facility] [id number] [place] [address] 59733- 2474 Oct, [facility] [address] [facility] [id number] [address]- 4594 Oct, [facility] [address] [address]- 8420 Oct, Pre-op evaluation V72.84 [facility] [address] [address]- 8689 Oct, [facility] [id number] [place] [address] 08641- 1691 Oct, [facility] [address] [address]- 5616 September, [facility] [id number] [place] [address] 84478- 9127 September, [facility] [address] [address]- 7035 September, Hallux valgus (acquired) 735.0 and Other hammer toe ( acquired) 735.4 [facility] [address] [address]- 9492 Aug, [facility] [address] [address]- 4646 Aug, [facility] [address] [address]- 3303 Jul, [facility] [id number] [address]- 3881 Jul, [facility] [id number] [address]- 7283 Jul, [facility] [address] [facility] [id number] [address]- 0144 Jul, [facility] [address] [facility] [id number] [address]- 9432 Jul, [facility] [address] [address]- 0936 Jul, [facility] [place] [facility] [address] [id number] [place] [address]- 1830 Jul, [facility] [place] [facility] [address] [id number] [place] [address]- 4519 Jul, [facility] [place] [facility] [address] [facility] [id number] [place] [address]- 7864 Jun, 2014 [facility] [place] [facility] [address] [id number] [place] [address]- 2109 Jun, 2014 [facility] [place] [facility] [address] [id number] [place] [address]- 2491 Jun, 2014 [facility] [place] [facility] [address] [id number] [place] [address]- 7863 Jun, 2014 [facility] [place] [facility] [address] [facility] [id number] [place] [address]- 3996 Jun, 2014 [facility] [place] [facility] [address] [id number] [place] [address]- 0199 Jun, [facility] [place] [facility] [address] [id number] [place] [address]- 0071 Jun, 2014 [facility] [place] [facility] [address] [facility] [id number] [place] [address]- 2255 Jun, [facility] [place] [facility] [address] [facility] [id number] [place] [address]- 8204 Jun, [facility] [place] [facility] [address] [facility] [id number] [place] [address]- 2228 Jun, [facility] [place] [facility] [address] [id number] [place] [address]- 8168 May, [facility] [place] [facility] [address] [facility] [id number] [id number] 0144 May, [facility] [place] [facility] [address] [id number] [place] [address]- 9498 May, [facility] [place] [facility] [address] [id number] [place] [address]- 4996 May, [facility] [place] [facility] [address] [id number] [place] [address]- 5887 May, [facility] [place] [facility] [address] [id number] [place] [address]- 0992 May, [facility] [place] [facility] [address] [id number] [place] [address]- 5255 May, [facility] [address] [id number] [place] [address]- 4587 May, [facility] [place] [facility] [address] [id number] [place] [address]- 1970 May, [facility] [place] [facility] [address] [id number] [place] [address]- 2372 May, [facility] [address] [id number] [place] [address]- 3121 May, [facility] [place] [facility] [address] [id number] [place] [address]- 9373 May, [facility] [place] [facility] [address] [id number] [place] [address]- 3588 May, [facility] [place] [facility] [address] [id number] [place] [address]- 6056 May, [facility] [place] [facility] [address] [id number] [place] [address]- 4799 May, [facility] [place] [facility] [address] [id number] [place] [address]- 3877 May, [facility] [place] [facility] [address] [id number] [place] [address]- 4438 May, [facility] [place] [facility] [address] [id number] [place] [address]- 6916 May, [facility] [place] [facility] [address] [id number] [place] [address]- 7370 Apr, [facility] [place] [facility] [address] [id number] [place] [address]- 1673 Apr, [facility] [place] [facility] [address] [id number] [place] 7073 Apr, [facility] [place] [facility] [address] [id number] [place] [address]- 4211 Apr, [facility] [place] [facility] [address] [id number] [place] [address]- 6801 Apr, [facility] [place] [facility] [address] [id number] [place] [address]- 3057 Apr, [facility] [place] [facility] [address] [id number] [place] [address]- 3796 Apr, [facility] [place] [facility] [address] [id number] [place] [address]- 4235 Apr, [facility] [place] [facility] [address] [id number] [place] [address]- 8461 Apr, [facility] [place] [facility] [address] [id number] [place] [address]- 2447 Mar, [facility] [place] [facility] [address] [id number] [place] [address]- 8136 Mar, [facility] [place] [facility] [address] [id number] [address]- 2630 Mar, [facility] [place] [facility] [address] [id number] [place] [address]- 3714 Mar, [facility] [place] [facility] [address] [id number] [place] [address]- 6120 Mar, [facility] [place] [facility] [address] [id number] [place] [address]- 9726 Feb, [facility] [place] [facility] [address] [id number] [place] [address]- 2598 Feb, [facility] [place] [facility] [address] [id number] [place] [address]- 6360 Feb, 2013 [facility] [place] [facility] [address] [id number] [place] [address]- 5192 Feb, 2013 [facility] [place] [facility] [address] [id number] [place] 4422 Feb, 2013 [facility] [place] [facility] [address] [id number] [place] [address]- 1633 Feb, 2013 [facility] [place] [facility] [address] [id number] [place] [address]- 7723 Feb, 2013 [facility] [place] [facility] [address] [id number] [place] [address]- 3484 Feb, 2013 [facility] [place] [facility] [address] [id number] [place] [address]- 5579 Feb, 2013 [facility] [place] [facility] [address] [id number] [place] [address]- 6340 Feb, 2013 [facility] [place] [facility] [address] [id number] [place] [address]- 7342 Feb, 2013 [facility] [place] [facility] [address] [id number] [place] [address]- 5446 Feb, 2013 [facility] [place] [facility] [address] [id number] [place] [address]- 9784 Feb, 2013 [facility] [place] [facility] [address] [id number] [place] [address]- 2373 Feb, 2013 [facility] [place] [facility] [address] [id number] [place] [address]- 0524 Feb, 2013 [facility] [place] [facility] [address] [id number] [place] [address]- 7328 Feb, 2013 [facility] [place] [facility] [address] [id number] [place] [address]- 2191 Jan, 2013 [facility] [place] [facility] [address] [id number] [place] [address]- 7287 23 Jan, 2013 [facility] [place] [facility] [address] [id number] [place] [address]- 8981 20 Jan, 2013 [facility] [place] [facility] [address] [id number] [place] [address]- 2289 19 Jan, 2013 [facility] [place] [facility] [address] [id number] [place] [address]- 7304 Jan, 2013 [facility] [place] [facility] [address] [id number] [place] [address]- 0066 Jan, 2013 [facility] [place] [facility] [address] [id number] [place] [address]- 7458 Jan, [facility] [place] [facility] [address] [id number] [place] [address]- 2057 Jan, [facility] [place] [facility] [address] [id number] [place] [address]- 5845 Dec, [facility] [place] [facility] [address] [id number] [place] [address]- 6052 Dec, [facility] [place] [facility] [address] [id number] [place] [address]- 6047 Nov, [facility] [place] [facility] [address] [id number] [place] [address]- 8576 Nov, [facility] [place] [facility] [address] [id number] [place] [address]- 7994 Nov, [facility] [place] [facility] [address] [id number] [place] [address]- 9405 Nov, [facility] [place] [facility] [address] [id number] [place] [address]- 3167 Nov, [facility] [place] [facility] [address] [id number] [place] [address]- 9519 Nov, [facility] [place] [facility] [address] [id number] [place] 0959 Nov, [facility] [place] [facility] [address] [id number] [place] [address]- 6363 Nov, [facility] [place] [facility] [address] [id number] [place] 9263 Nov, [facility] [place] [facility] [address] [id number] [place] 0756 Oct, [facility] [place] [facility] [address] [id number] [place] [address]- 8011 Oct, [facility] [place] [facility] [address] [id number] [place] [address]- 7164 Oct, [facility] [place] [facility] [address] [id number] [place] [address]- 0543 Oct, [facility] [place] [facility] [address] [id number] [place] [address]- 1246 Oct, [facility] [place] [facility] [address] [id number] [place] [address]- 0027 Oct, [facility] [place] [facility] [address] [id number] [place] [address]- 2694 September, [facility] [place] [facility] [address] [id number] [place] [address]- 0518 September, [facility] [place] [facility] [address] [id number] [place] [address]- 5227 September, [facility] [place] [facility] [address] [id number] [place] [address]- 3376 September, [facility] [place] [facility] [address] [id number] [place] [address]- 2151 September, [facility] [place] [facility] [address] [id number] [place] [address]- 1122 September, [facility] [place] [facility] [address] [id number] [place] [address]- 3632 September, [facility] [place] [facility] [address] [id number] [place] [address]- 3793 September, [facility] [place] [facility] [address] [id number] [place] [address]- 0861 September, [facility] [place] [facility] [address] [id number] [place] [address]- 8618 September, [facility] [place] [facility] [address] [id number] [place] [address]- 9779 September, [facility] [place] [facility] [address] [id number] [place] [address]- 8772 September, [facility] [place] [facility] [address] [id number] [place] [address]- 6468 September, [facility] [place] [facility] [address] [id number] [place] [address]- 5668 September, [facility] [place] [facility] [address] [id number] [place] [address]- 2985 September, [facility] [place] [facility] [address] [id number] [place] [address]- 3880 September, [facility] [place] [facility] [address] [id number] [place] [address]- 1022 September, [facility] [place] [facility] [address] [id number] [place] [address]- 2662 September, [facility] [place] [facility] [address] [id number] [place] [address]- 6409 September, [facility] [place] [facility] [address] [id number] [place] [address]- 9378 September, [facility] [place] [facility] [address] [id number] [place] [address]- 9641 Aug, [facility] [place] [facility] [address] [id number] [place] [address]- 0695 Aug, [facility] [place] [facility] [address] [id number] [place] [address]- 1991 Aug, [facility] [place] [facility] [address] [id number] [place] [address]- 9822 Aug, 2013 [facility] [place] [facility] [address] [id number] [place] [address]- 9150 18 Aug, 2013 [facility] [place] [facility] [address] [id number] [place] [address]- 5886 18 Aug, 2013 [facility] [place] [facility] [address] [id number] [place] [address]- 8355 16 Aug, 2013 [facility] [place] [facility] [address] [id number] [place] [address]- 0498 16 Aug, 2013 [facility] [place] [facility] [address] [id number] [place] [address]- 6240 15 Aug, 2013 [facility] [place] [facility] [address] [id number] [place] [address]- 1424 15 Aug, 2013 [facility] [place] [facility] [address] [id number] [place] [address]- 8719 14 Aug, 2013 [facility] [place] [facility] [address] [id number] [place] [address]- 5130 Aug, [facility] [place] [facility] [address] [id number] [place] [address]- 6506 Aug, [facility] [place] [facility] [address] [id number] [place] [address]- 3333 Aug, [facility] [place] [facility] [address] [id number] [place] [address]- 5797 Aug, [facility] [place] [facility] [address] [id number] [address]- 6895 Jul, [facility] [place] [facility] [address] [id number] [place] [address]- 6958 Jul, [facility] [place] [facility] [address] [id number] [place] [address]- 3785 Jul, [facility] [place] [facility] [address] [id number] [place] [address]- 6382 Jul, [facility] [place] [facility] [address] [id number] [place] [address]- 1471 20 Jul, 2013 [facility] [place] [facility] [address] [id number] [place] [address]- 8593 20 Jul, 2013 [facility] [place] [facility] [address] [id number] [place] [address]- 4394 18 Jul, 2013 [facility] [place] [facility] [address] [id number] [place] [address]- 1239 18 Jul, 2013 [facility] [place] [facility] [address] [id number] [place] [address]- 3263 Jul, [facility] [place] [facility] [address] [id number] [place] [address]- 6095 Jul, [facility] [place] [facility] [address] [id number] [place] [address]- 0432 Jul, [facility] [place] [facility] [address] [id number] [place] [address]- 9577 04 Jul, 2013 [facility] [place] [facility] [address] [id number] [place] [address]- 3420 Jul, [facility] [place] [facility] [address] [id number] [place] [address]- 9896 Jul, [facility] [place] [facility] [address] [facility] [id number] [place] [address]- 5396 Jul, [facility] [place] [facility] [address] [id number] [place] [address] 18 Jun, 2013 [facility] [place] [facility] [address] [id number] [place] [address] 18 Jun, 2013 [facility] [place] [facility] [address] [id number] [place] [address] 13 Jun, 2013 [facility] [place] [facility] [address] [id number] [place] [address] 13 Jun, 2013 [facility] [place] [facility] [address] [id number] [place] [address] Jun, [facility] [place] [facility] [address] [id number] [place] [address] Jun, [facility] [place] [facility] [address] [id number] [place] [address] May, [facility] [place] [facility] [address] [id number] [place] [address] May, [facility] [place] [facility] [address] [id number] [place] [address] May, [facility] [place] [facility] [address] [id number] [place] [address]- [address] May, [facility] [place] [facility] [address] [id number] [place] [address] May, [facility] [place] [facility] [address] [id number] [place] [address] May, [facility] [place] [facility] [address] [id number] [place] [address]- [address] May, [facility] [place] [facility] [address] [id number] [place] [address]- [address] May, [facility] [place] [facility] [address] [id number] [place] [address] May, [facility] [place] [facility] [address] [id number] [address] May, [facility] [place] [facility] [address] [id number] [address] May, [facility] [place] [facility] [address] [id number] [place] [address] May, [facility] [place] [facility] [address] [id number] [place] [address]- [address] May, [facility] [place] [facility] [address] [id number] [place] [address] May, [facility] [place] [facility] [address] [id number] [place] [address] May, [facility] [address] [id number] [place] [address] Apr, [facility] [place] [facility] [address] [id number] [place] [address] Apr, [facility] [address] [id number] [place] [address]- [address] Apr, [facility] [place] [facility] [address] [id number] [place] [address]- [address] Apr, [facility] [address] [id number] [place] [address]- [address] Apr, [facility] [address] [id number] [place] [address] Apr, [facility] [address] [id number] [place] [address] Apr, [facility] [address] [id number] [place] [address]- [address] Apr, [facility] [address] [id number] [place] [address]- [address] Apr, [facility] [address] [id number] [place] [address]- 47[address] Apr, [facility] [address] [id number] [place] [address]- [address] Mar, [facility] [place] [facility] [address] [id number] [place] [address]- [address] Mar, [facility] [place] [facility] [address] [id number] [place] [address] Mar, [facility] [place] [facility] [address] [id number] [place] [address]- [address] Mar, [facility] [place] [facility] [address] [id number] [place] [address] 134[address] Mar, [facility] [place] [facility] [address] [id number] [place] [address] Mar, [facility] [place] [facility] [address] [id number] [place] [address]- [address] Mar, [facility] [place] [facility] [address] [id number] [place] [address] Mar, [facility] [place] [facility] [address] [id number] [place] [address] Mar, [facility] [place] [facility] [address] [id number] [place] [address] Mar, [facility] [place] [facility] [address] [id number] [place] [address]- [address] Mar, [facility] [place] [facility] [address] [id number] [place] [address]- [address] Mar, [facility] [place] [facility] [address] [id number] [place] [address]- [address] Mar, [facility] [place] [facility] [address] [id number] [place] [address]- [address] Mar, [facility] [place] [facility] [address] [id number] [place] [address]- [address] Mar, [facility] [place] [facility] [address] [id number] [place] [address]- [address] 18 Mar, 2013 [facility] [place] [facility] [address] [id number] [place] [address]- [address] 14 Mar, 2013 [facility] [place] [facility] [address] [id number] [place] [address]- [address] 14 Mar, 2013 [facility] [place] [facility] [address] [id number] [place] [address]- [address] Mar, [facility] [place] [facility] [address] [id number] [place] [address]- [address]185 Mar, [facility] [place] [facility] [address] [id number] [place] [address] Mar, [facility] [place] [facility] [address] [id number] [place] [address]- [address] Mar, [facility] [place] [facility] [address] [id number] [place] [address]- 59[address] Mar, [facility] [place] [facility] [address] [id number] [place] [address]- 9433 Feb, [facility] [place] [facility] [address] [id number] [place] [address]- [address] Feb, [facility] [place] [facility] [address] [id number] [place] [address]- [address] Feb, [facility] [place] [facility] [address] [id number] [id number] [address] 16 Feb, 2013 [facility] [place] [facility] [address] [id number] [place] [address]- [address] 15 Feb, 2013 [facility] [place] [facility] [address] [id number] [place] [address] Feb, [facility] [place] [facility] [address] [id number] [place] [address]- [address] Feb, [facility] [place] [facility] [address] [id number] [address] Feb, [facility] [place] [facility] [address] [id number] [address] Feb, [facility] [place] [facility] [address] [id number] [place] [address] Feb, [facility] [place] [facility] [address] [id number] [place] [address] 30 Jan, 2013 [facility] [place] [facility] [address] [id number] [place] [address] 26 Jan, 2013 [facility] [place] [facility] [address] [id number] [place] [address]- 25[address] 24 Jan, 2013 [facility] [place] [facility] [address] [id number] [place] [address] 2[address] Jan, [facility] [address] [id number] [place] [address]- 5[address] Jan, [facility] [address] [id number] [place] [address] 3436 Dec, [facility] [address] [id number] [place] [address]- 5279 Dec, [facility] [address] [id number] [place] [address]- 59[address] Dec, [facility] [address] [id number] [place] [address]- 7094 Dec, [facility] [address] [id number] [place] [address]- 2195 Dec, [facility] [address] [id number] [place] [address]- 8497 Dec, [facility] [address] [id number] [place] [address]- 9507 Dec, [facility] [address] [id number] [place] [address]- 2979 Nov, [facility] [address] [id number] [place] [address]- 1557 Nov, [facility] [place] [facility] [address] [id number] [place] [address]- 1471 Nov, [facility] [address] [id number] [place] [address]- 2961 Nov, [facility] [place] [facility] [address] [id number] [place] [address]- 6810 Nov, [facility] [place] [facility] [address] [id number] [place] [address]- 9922 Oct, [facility] [place] [facility] [address] [id number] [place] [address]- 6947 Oct, [facility] [address] [id number] [place] [address]- 3814 Oct, [facility] [address] [id number] [place] [address]- 2386 September, [facility] [address] [id number] [place] [address]- 8536 September, [facility] [address] [id number] [place] [address]- 3626 September, [facility] [address] [id number] [place] [address]- 7776 September, [facility] [address] [id number] [place] [address]- 0076 September, [facility] [address] [id number] [place] [address]- 9730 September, [facility] [address] [id number] [place] [address]- 3886 September, [facility] [address] [id number] [place] [address]- 6640 Aug, [facility] [address] [id number] [place] [address]- 5035 Aug, [facility] [place] [facility] [address] [id number] [place] [address]- 3126 Aug, [facility] [place] [facility] [address] [id number] [place] [address]- 1813 29 Jul, 2012 [facility] [place] [facility] [address] [id number] [place] [address]- 8748 Jul, [facility] [place] [facility] [address] [id number] [place] [address]- 8116 Jul, [facility] [place] [facility] [address] [id number] [place] [address]- 8334 Jul, [facility] [place] [facility] [address] [id number] [place] [address]- 3370 18 Jul, 2012 [facility] [address] [id number] [place] [address] 2546 18 Jul, 2012 [facility] [address] [id number] [place] [address] 2546 Jul, [facility] [address] [id number] [place] [address]- 1336 28 Jun, 2012 [facility] [address] [id number] [place] [address] 2545 27 Jun, 2012 [facility] [address] [id number] [place] [address]- 6816 Jun, [facility] [address] [id number] [place] [address]- 2546 Jun, [facility] [address] [id number] [place] [address]- 9682 15 Jun, 2012 [facility] [address] [id number] [place] [address]- 2541 15 Jun, 2012 [facility] [address] [id number] [place] [address]- 1653 Jun, [facility] [address] [id number] [place] [address]- 3620 Jun, [facility] [address] [id number] [place] [address] 2546 Jun, [facility] [address] [id number] [place] [address] 2540 Jun, [facility] [place] [facility] [address] [id number] [place] [address]- 7791 May, [facility] [place] [facility] [address] [id number] [place] [address] 2546 May, [facility] [place] [facility] [address] [id number] [place] [address]- 6499 May, [facility] [place] [facility] [address] [id number] [place] [address]- 8278 17 May, 2012 [facility] [place] [facility] [address] [id number] [place] [address]- 1880 15 May, 2012 [facility] [place] [facility] [address] [id number] [place] [address]- 8216 07 May, 2012 [facility] [place] [facility] [address] [id number] [place] [address]- 0117 31 Apr, 2012 [facility] [place] [facility] [address] [id number] [place] [address]- 0068 31 Apr, 2012 [facility] [place] [facility] [address] [id number] [place] [address]- 3281 Apr, [facility] [place] [facility] [address] [id number] [place] [address]- 4370 Apr, [facility] [place] [facility] [address] [id number] [place] [address]- 0005 Apr, [facility] [place] [facility] [address] [id number] [place] [address]- 3827 Apr, [facility] [place] [facility] [address] [id number] [place] [address]- 5158 Apr, [facility] [place] [facility] [address] [id number] [place] [address]- 4462 Mar, [facility] [place] [facility] [address] [id number] [place] [address]- 6177 29 Mar, 2012 [facility] [place] [facility] [address] [id number] [place] [address]- 0556 Mar, [facility] [place] [facility] [address] [id number] [place] [address]- 2709 Mar, [facility] [place] [facility] [address] [id number] [place] 3101 Mar, [facility] [place] [facility] [address] [id number] [place] [address]- 4233 Mar, [facility] [place] [facility] [address] [id number] [place] [address]- 5917 18 Mar, 2012 [facility] [place] [facility] [address] [id number] [place] [address]- 8959 Mar, [facility] [place] [facility] [address] [id number] [place] [address]- 9716 Mar, [facility] [place] [facility] [address] [id number] [place] [address]- 6824 Mar, [facility] [place] [facility] [address] [id number] [place] [address]- 9256 Mar, [facility] [place] [facility] [address] [id number] [place] [address]- 7511 Mar, [facility] [place] [facility] [address] [facility] [id number] [address]- 4998 Mar, [facility] [place] [facility] [address] [id number] [place] [address]- 0020 Mar, [facility] [place] [facility] [address] [id number] [place] [address]- 3694 Mar, [facility] [place] [facility] [address] [facility] [id number] [place] [address]- 0476 Mar, [facility] [place] [facility] [address] [id number] [place] [address]- 7322 Mar, [facility] [place] [facility] [address] [id number] [place] [address]- 9749 Feb, [facility] [place] [facility] [address] [id number] [place] [address]- 0024 Feb, [facility] [place] [facility] [address] [facility] [id number] [place] [address]- 5370 Feb, [facility] [place] [facility] [address] [facility] [id number] [place] [address]- 1255 Feb, [facility] [place] [facility] [address] [id number] [place] [address]- 2209 16 Feb, 2012 [facility] [place] [facility] [address] [id number] [place] [address]- 5676 16 Feb, 2012 [facility] [place] [facility] [address] [id number] [place] [address]- 1186 Feb, [facility] [place] [facility] [address] [id number] [place] [address]- 8846 Feb, [facility] [place] [facility] [address] [id number] [place] [address]- 4491 05 Feb, 2012 [facility] [place] [facility] [address] [id number] [place] [address]- 5844 04 Feb, 2012 [facility] [place] [facility] [address] [id number] [place] [address]- 3503 02 Feb, 2012 [facility] [place] [facility] [address] [id number] [place] [address]- 9091 27 Jan, 2012 [facility] [place] [facility] [address] [id number] [place] [address]- 4858 25 Jan, 2012 [facility] [place] [facility] [address] [id number] [place] [address]- 3785 13 Jan, 2012 [facility] [place] [facility] [address] [id number] [place] [address]- 0037 12 Jan, 2012 [facility] [place] [facility] [address] [id number] [place] [address]- 2541 07 Jan, 2012 [facility] [place] [facility] [address] [id number] [place] [address]- 3853 31 Dec, 2011 [facility] [place] [facility] [address] [id number] [place] [address] 2546 24 Dec, 2011 [facility] [place] [facility] [address] [id number] [place] [address]- 8366 22 Dec, 2011 [facility] [place] [facility] [address] [id number] [place] [address]- 2476 Dec, [facility] [place] [facility] [address] [id number] [place] [address]- 2052 Dec, [facility] [place] [facility] [address] [id number] [place] [address]- 4386 Dec, [facility] [place] [facility] [address] [id number] [place] [address]- 5904 Dec, [facility] [place] [facility] [address] [id number] [place] [address]- 1676 Dec, [facility] [place] [facility] [address] [id number] [place] [address]- 8190 Nov, [facility] [place] [facility] [address] [id number] [place] [address]- 2245 Nov, [facility] [place] [facility] [address] [id number] [place] [address]- 9362 Nov, [facility] [place] [facility] [address] [id number] [place] [address]- 1757 Nov, [facility] [place] [facility] [address] [id number] [place] [address]- 8131 Nov, [facility] [place] [facility] [address] [id number] [place] [address]- 7323 Oct, [facility] [place] [facility] [address] [id number] [place] [address]- 6196 Oct, [facility] [place] [facility] [address] [id number] [place] [address]- 3403 September, [facility] [place] [facility] [address] [id number] [place] [address]- 4949 September, [facility] [place] [facility] [address] [id number] [place] [address]- 9059 September, [facility] [place] [facility] [address] [id number] [place] [address]- 9999 September, [facility] [place] [facility] [address] [id number] [place] [address]- 7938 September, [facility] [address] [id number] [place] [address]- 7658 September, [facility] [address] [id number] [place] [address]- 4866 September, [facility] [address] [id number] [place] [address]- 9064 September, [facility] [address] [id number] [place] [address]- 9265 September, [facility] [address] [id number] [place] [address]- 5239 September, [facility] [address] [id number] [place] [address]- 1527 September, [facility] [address] [id number] [place] [address]- 1726 September, [facility] [address] [id number] [place] [address]- 5087 September, [facility] [address] [id number] [place] [address]- 3271 September, [facility] [address] [id number] [place] [address]- 9396 Aug, [facility] [address] [id number] [place] [address]- 6007 Aug, [facility] [address] [id number] [place] [address]- 1169 Aug, [facility] [place] [facility] [address] [id number] [place] [address]- 2470 Aug, [facility] [place] [facility] [address] [id number] [place] [address]- 4130 Jul, [facility] [address] [id number] [place] [address]- 5282 Jul, [facility] [place] [facility] [address] [id number] [place] [address]- 1062 13 Jul, 2011 [facility] [address] [id number] [place] [address]- 1847 28 Jun, 2011 [facility] [place] [address] [facility] [id number] [place] [id number] Jun, [facility] [place] [facility] [address] [id number] [place] [address]- 1716 13 Jun, 2011 [facility] [address] [id number] [place] [address]- 9981 Jun, [facility] [place] [facility] [address] [id number] [place] [address]- 6646 07 Jun, 2011 [facility] [address] [id number] [place] [address]- 1481 Jun, [facility] [address] [id number] [place] [address]- 7320 03 Jun, 2011 [facility] [address] [id number] [place] [address]- 0040 Jun, [facility] [address] [id number] [address]- 3950 May, [facility] [place] [facility] [address] [id number] [place] [address]- 5538 May, [facility] [place] [facility] [address] [id number] [place] [address]- 5134 May, [facility] [place] [facility] [address] [id number] [place] [address]- 1803 May, [facility] [place] [facility] [address] [id number] [place] [address]- 6056 May, [facility] [place] [facility] [address] [id number] [place] [address]- 6956 May, [facility] [place] [facility] [address] [id number] [place] [address]- 3490 May, [facility] [address] [id number] [place] [address]- 3851 May, [facility] [place] [facility] [address] [facility] [id number] [place] [address]- 7103 May, [facility] [place] [facility] [address] [facility] [id number] [place] [address]- 4200 May, [facility] [place] [facility] [address] [id number] [place] [address]- 3320 May, [facility] [address] [facility] [id number] [place] [address], [place] [address]- 8333 May, [facility] [place] [facility] [address] [facility] [id number] [place] [address]- 0333 May, [facility] [id number] [address]- 8974 May, [facility] [place] [facility] [address] [facility] [id number] [place] [address]- 6379 Apr, [facility] [place] [facility] [address] [id number] [address]- 7552 Apr, [facility] [place] [facility] [address] [id number] [address]- 1761 Apr, [facility] [place] [facility] [address] [facility] [id number] [place] [address]- 8531 Mar, [facility] [place] [facility] [address] [facility] [id number] [place] [address]- 5198 Mar, [facility] [place] [facility] [address] [facility] [id number] [place] [address]- 7712 Feb, [facility] [place] [facility] [address] [facility] [id number] [place] [address]- 7953 Feb, [facility] [place] [facility] [address] [id number] [address]- 2249 Feb, [facility] [place] [facility] [address] [id number] [place] [address]- 3587 20 Feb, 2011 [facility] [place] [facility] [address] [id number] [place] [address]- 1166 13 Feb, 2011 [facility] [place] [facility] [address] [id number] [place] [address]- 8846 28 Apr, 2010 [facility] [place] [facility] [address] [id number] [place] [address] 2546 22 Apr, 2010 [facility] [place] [facility] [address] [id number] [place] [address] 2546 16 Apr, 2010 [facility] [place] [facility] [address] [id number] [place] [address]- 1426 15 Apr, 2010 [facility] [place] [facility] [address] [id number] [place] [address]- 8831 15 Apr, 2010 [facility] [place] [facility] [address] [id number] [place] [address]- 8462 Apr, [facility] [place] [facility] [address] [id number] [place] [address]- 7943 24 Mar, 2010 [facility] [place] [facility] [address] [id number] [place] [address]- 8428 17 Mar, 2010 [facility] [place] [facility] [address] [id number] [place] [address]- 7105 17 Mar, 2010 [facility] [place] [facility] [address] [id number] [place] [address]- 9044 28 Feb, 2010 [facility] [place] [facility] [address] [id number] [place] [address] 2548 Feb, [facility] [place] [facility] [address] [id number] [place] [address] 2546 21 Feb, 2010 [facility] [place] [facility] [address] [id number] [place] [address]- 2546 15 Feb, 2010 [facility] [place] [facility] [address] [id number] [place] [address]- 5040 Dec, [facility] [address] [facility] [id number] [address]- 7687 Dec, [facility] [address] [facility] [id number] [place] [address]- 4826 Oct, [facility] [address] [facility] [id number] [place] [address]- 5454 Mar, [facility] [address] [id number] [address]- 6948 Mar, [facility] [address] [facility] [id number] [place] [address]- 9825 September, IMMUNIZATIONS No Known Immunizations SOCIAL HISTORY Never Assessed REASON FOR VISIT Controlled Med Refill 06/19/17 PLAN OF CARE VITAL SIGNS MEDICATIONS Medication [...]
--- OUTSIDE RECORDS SUMMARY | 2017-11-27 15:43 | XMS REPORT ---
Author Author CIRILO PERAZA Organization [facility] Address [address] [place] [address] Care Team Providers Care [employer] Operator Name Role Phone STU CIRILO Unavailable PROBLEMS Type Condition ICD9-CM Code QZL10-FR Code Onset Dates Condition Status SNOMED Code Problem Generalized anxiety disorder F41.1 Active 33347357 Problem Hypokalemia E87.6 Active 218288417 Problem Right low back pain, with sciatica presence unspecified M54.5 Active 221840993 Problem Post-traumatic stress disorder, chronic F43.12 Active 21712448 Problem Pain in right knee M25.561 Active 29200749 Problem Gastroesophageal reflux disease without esophagitis K21.9 Active 895768129 Problem UTI symptoms R39.9 Active 31379059 Problem Essential hypertension I10 Active 52395244 Problem Anxiety F41.9 Active 13676641 Problem Neuropathy G62.9 Active 464820110 Problem Other chronic pain G89.29 Active 97756608 Problem Generalized abdominal pain R10.84 Active 048906447 Problem Chronic pain G89.29 Active 41278144 Problem Back pain M54.9 Active 172261234 Problem Right foot pain M79.671 Active 43628440 Problem Panic attacks F41.0 Active 875652809 Problem Other emphysema J43.8 Active 58804489 Problem Kidney stones N20.0 Active 92547171 Problem Renal calculus, right N20.0 Active 85095246 Problem Weight decrease R63.4 Active 563689203 Problem Tobacco abuse Z72.0 Active 03528851 Problem Bone pain M89.8X9 Active 83174520 Problem Depression, unspecified depression type F32.9 Active 79411944 Problem Insomnia, unspecified type G47.00 Active 053057664 Problem Pulmonary emphysema, unspecified emphysema type J43.9 Active 27957334 Problem Right upper quadrant abdominal pain R10.11 Active 133209682 Problem Weight loss R63.4 Active 086096258 ALLERGIES Substance Reaction Event Type Date Status Sulfur rash Drug Allergy May, Active Remeron itching Drug Allergy May, Active Morphine Sulfate nausea Drug Allergy May, Active Fentanyl 25 Mcg/hr Patch 72 Hr Unknown Non Drug Allergy May, Active ENCOUNTERS Encounter Location Date Diagnosis [facility] [id number], [place] [address] Nov, [facility] [id number] [place] [address] 77945- 7629 Oct, [facility] [id number] [place] [address] 31452- 1187 Oct, [facility] [id number] [place] [address] 48058- 6858 Oct, Medicare welcome exam Z00.00 [facility] [id number] [place] [address] 09459- 8248 September, Back pain M54.9 and Right anterior knee pain M25.561 [facility] [id number] [place] [address] 74374- 6125 September, [facility] [id number] [place] [address] 46921- 4415 September, [facility] [id number] [place] [address] 28691- 9349 September, Essential hypertension I10 [facility] [id number] [place] [address] 65899- 4440 September, [facility] [id number] [place] [address] 68862- 5589 September, RLQ abdominal pain R10.31 ; Low back pain M54.5 and Other chronic pain G89.29 [facility] [id number], [place] [address] 8545 Aug, Medicare welcome exam Z00.00 [facility] [id number] [place] [address] 24301- 5256 Aug, [facility] [address], [place] [address] 0931 Aug, Acute pyelonephritis N10 and Medicare welcome exam Z00.00 [facility] [address], [place] [address] Aug, Dysuria R30.0 and Acute pyelonephritis N10 [facility] [id number] [place] [address] 66540- 1992 Aug, [facility] [id number] [place] [address] 62885- 1624 Aug, [facility] [id number] [place] [address] 78547- 0637 Aug, [facility] [id number] [place] [address] 33896- 5841 Aug, [facility] [id number] [place] [address] 73532- 8190 Jul, [facility] [id number] [place] [address] 02348- 4407 Jul, Renal calculus, right N20.0 and Medicare welcome exam Z00.00 [facility] [id number] [place] [address] 71615 -9136 Jul, Dysuria R30.0 and Renal calculus, right N20.0 [facility] [id number] [place] [address] 53845- 8730 Jul, Medicare welcome exam Z00.00 [facility] [id number] [place] [address] 50502- 6174 13 Jun, 2017 Gastroesophageal reflux disease without esophagitis K21.9 and Generalized abdominal pain R10.84 [facility] [address], [place] [address] 9475 Jun, Medicare welcome exam Z00.00 [facility] [id number] [place] [address] 43876- 6049 05 Jun, 2017 [facility] [id number] [place] [address] 30882- 1136 05 Jun, 2017 Medicare welcome exam Z00.00 and Encounter for screening mammogram for malignant neoplasm of breast Z12.31 [facility] [id number] [place] [address] 43968- 9457 02 Jun, 2017 Chronic pain G89.29 [facility] [address] 81632- 5957 May, [facility] [address] 99697- 6302 May, Pelvic pain R10.2 [facility] [id number] [place] [address] 17535- 5135 May, Pelvic pain R10.2 [facility] [address] [address]22 -2496 May, Renal calculus, right N20.0 [facility] [address] 98740- 9575 May, Hematuria, unspecified type R31.9 and Nephrolithiasis N20.0 [facility] [id number] [place] [address] 59289 -1365 May, Dysuria R30.0 and Nephrolithiasis N20.0 [facility] [id number] [place] [address] 15438- 8584 May, [facility] [id number] [place] [address] 92878 -2454 May, Abdominal pain R10.9 and Kidney stone N20.0 [facility] [id number] [place] [address] 90140- 9506 May, [facility] [address] 97651- 4009 May, Chronic pain G89.29 and Panic attacks F41.0 [facility] [address], [place] [address] 3[address] May, Urinary tract infection without hematuria, site unspecified N39.0 [facility] [address], [place] [address] 3978 Apr, Right lower quadrant abdominal pain R10.31 and Abnormal serum lipase level R74.8 [facility] [address], [place] [address]- 6033 Apr, Recurrent urinary tract infection N39.0 [facility] [id number] [place] [address] 34889- 5658 Apr, UTI symptoms R39.9 ; Recurrent urinary tract infection N39.0 and Pelvic pain R10.2 [facility] [id number] [place] [address] 27860- 3792 Apr, Chronic pain G89.29 and Panic attacks F41.0 [facility] [address], [place] [address]- 6444 Apr, Dysuria R30.0 [facility] [id number] [place] [address] 58697- 5825 Apr, [facility] [address], [place] [address] Apr, Dysuria R30.0 and Urinary tract infection without hematuria , site unspecified N39.0 [facility] [id number], [place] [address]- 4114 Mar, UTI symptoms R39.9 [facility] [id number] [place] [address] 77803- 3080 Mar, [facility] [id number] [address]- 9149 Mar, Panic attacks F41.0 and Chronic pain G89.29 [facility] [id number] [place] [address] 87966- 0583 Mar, [facility] [id number] [place] [address] 26461- 6210 Mar, Dysuria R30.0 [facility] [id number] [place] [address] 45578- 8063 Mar, Dysuria R30.0 [facility] [id number] [place] [address] 48347- 7879 Feb, Chronic pain G89.29 ; Shortness of breath R06.02 ; Weight loss R63.4 ; Encounter for immunization Z23 ; Bone pain M89.8X9 ; Right anterior knee pain M25.561 and Cough R05 [facility] [id number] [place] [address] 03953- 0758 Feb, Shortness of breath R06.02 [facility] [id number] [place] [address] 64381- 6785 Feb, [facility] [id number] [place] [address] 77860- 4869 Feb, Panic attacks F41.0 and Chronic pain G89.29 [facility] [id number] [place] [address] 79447- 4515 Feb, [facility] [id number] [place] [address] 56661- 3883 Feb, Panic attacks F41.0 ; Shortness of breath R06.02 and Encounter for immunization Z23 [facility] [id number] [place] [address] 43727- 3638 Jan, [facility] [id number] [place] [address] 07917- 4399 Jan, Anxiety F41.9 and Chronic pain G89.29 [facility] [id number] [place] [address] 73951- 3321 Dec, Anxiety F41.9 and Chronic pain G89.29 [facility] [id number] [place] [address] 07441- 5428 Nov, Chronic pain G89.29 [facility] [id number] [place] [address] 72021- 2360 Nov, Anxiety F41.9 [facility] [address] 87028- 3553 Nov, Chronic pain G89.29 ; Essential hypertension I10 and Other emphysema J43.8 [facility] [id number] [place] [address] 03124- 6797 Oct, Anxiety F41.9 [facility] [address] 59157- 6790 Oct, [facility] [address] 90745- 4045 Oct, Chronic pain G89.29 [facility] [id number] [place] [address] 39408- 5093 September, Recurrent UTI N39.0 ; Neuropathy G62.9 and Anxiety F41.9 [facility] [id number] [place] [address] 62251- 8160 September, [facility] [id number] [place] [address] 56922- 9471 September, Chronic pain G89.29 [facility] [id number] [place] [address] 34357- 8198 September, [facility] [id number] [place] [address] 69816- 6705 Aug, Post-traumatic stress disorder, chronic F43.12 ; Chronic urinary tract infection N39.0 ; Gastroesophageal reflux disease without esophagitis K21.9 ; Chronic pain G89.29 ; Essential hypertension I10 and Tobacco abuse Z72.0 [facility] [id number] [place] [address] 67561 -4297 Aug, [facility] [address], [place] [address]- 1406 Aug, Chronic pain G89.29 [facility] [address], [place] [address]- 5957 Aug, Insomnia, unspecified type G47.00 [facility] [address], [place] [address]- 6296 Aug, [facility] [address], [place] [address]- 1824 24 Jul, 2016 Chronic pain G89.29 [facility] [id number] [place] [address] 85660- 1436 Jul, [facility] [address], [place] [address]- 9340 Jul, [facility] [id number] [place] [address] 89966- 1317 Jul, [facility] [address], [place] [address]- 8978 15 Jul, 2016 Recurrent UTI (urinary tract infection) N39.0 [facility] [address], [place] [address]- 6946 Jul, [facility] [address], [place] [address]- 3253 Jun, Chronic pain G89.29 [facility] [address], [place] [address]- 0237 17 Jun, 2016 [facility] [address], [place] [address]- 2194 Jun, [facility] [address], [place] [address]- 2765 May, Chronic pain G89.29 [facility] [address], [place] [address]- 3155 May, Weight loss R63.4 and Shortness of breath R06.02 [facility] [id number] [place] [address] 96028- 0946 May, Chronic pain G89.29 ; Weight loss R63.4 and Tobacco abuse Z72.0 [facility] [id number] [place] [address] 93997- 7948 May, [facility] [address] 11946- 9624 May, Hypoxia R09.02 [facility] [id number] [place] [address] 71369- 0566 May, [facility] [address] 05556- 2607 May, Pulmonary emphysema, unspecified emphysema type J43.9 [facility] [id number] [place] [address] 01306 -7857 May, [facility] [id number] [place] [address] 32010- 2238 May, [facility] [id number] [place] [address] 26729- 8543 May, [facility] [id number] [place] [address] 92919- 5449 May, Chronic pain G89.29 ; Encounter for immunization Z23 ; Right anterior knee pain M25.561 and Cough R05 [facility] [id number] [place] [address] 77781- 1189 Apr, Chronic pain G89.29 [facility] [id number] [place] [address] 26728- 2089 Apr, [facility] [id number] [place] [address] 38496- 6550 Apr, Generalized anxiety disorder F41.1 and Depression, unspecified depression type F32.9 [facility] [id number] [place] [address] 55821- 3576 Apr, Chronic pain G89.29 ; Hypokalemia E87.6 and Insomnia, unspecified type G47.00 [facility] [id number] [place] [address]- 1866 Apr, [facility] [address] [place] [address], [place] [address]- 4576 Apr, Chronic pain G89.29 [facility] [id number] [place] [address] 05322 2540 Apr, [facility] [id number] [place] [address] 28344- 8902 Mar, [facility] [id number] [place] [address] 23785- 2879 Mar, Insomnia, unspecified type G47.00 [facility] [id number] [place] [address] 93385- 9581 Mar, Chronic pain G89.29 [facility] [id number] [place] [address] 39727- 0002 Mar, [facility] [id number] [place] [address] 30596- 4026 Feb, [facility] [address], [place] [address]- 7576 Feb, [facility] [address], [place] [address]- 9362 Feb, [facility] [address], [place] [address] 2545 Feb, [facility] [id number] [place] [address] 49640- 6856 Feb, [facility] [id number], [place] [address] 2546 Jan, [facility] [id number] [place] [address] 25811- 9657 26 Jan, 2016 [facility] [id number] [place] [address] 49215- 1621 20 Jan, 2016 [facility] [id number] [place] [address] 99360- 9006 13 Jan, 2016 [facility] [id number] [place] [address] 99050- 0583 12 Jan, 2016 [facility] [id number] [place] [address] 91491- 6400 07 Jan, 2016 Chronic pain G89.29 [facility] [id number] [place] [address] 97480- 9573 Jan, Chronic pain G89.29 and Fibromyalgia M79.7 [facility] [id number] [place] [address] 34577- 3451 Dec, Depression, unspecified depression type F32.9 and Generalized anxiety disorder 300.02 [facility] [id number] [place] [address] 33696- 5082 Dec, Dysthymia F34.1 ; Insomnia, unspecified type G47.00 and Chronic pain G89.29 [facility] [id number] [place] [address] 30748- 9724 Dec, Chronic pain G89.29 [facility] [id number] [place] [address] 67966- 8278 Dec, Insomnia, unspecified type G47.00 [facility] [id number] [place] [address] 34918- 5586 Dec, Fibromyalgia M79.7 and Chronic pain G89.29 [facility] [id number] [place] [address] 15957- 6330 Dec, [facility] [id number] [place] [address] 07538- 8538 Dec, [facility] [id number] [place] [address] 01399- 6610 Dec, [facility] [id number] [place] [address] 22887- 7438 Dec, [facility] [id number] [place] [address] 21043- 3048 Dec, Chronic pain G89.29 [facility] [id number] [place] [address] 49037- 3849 Dec, [facility] [id number] [place] [address] 35787- 0371 Dec, [facility] [id number] [place] [address] 25021- 1493 Dec, [facility] [id number] [place] [address] 47737- 6786 Dec, Chronic pain G89.29 and Dysthymia F34.1 [facility] [id number] [place] [address] 55332- 8532 Nov, [facility] [id number] [place] [address] 89698- 7106 Nov, Hypokalemia E87.6 and Chronic pain G89.29 [facility] [id number] [place] [address] 78025- 1859 Nov, Back pain M54.9 and Pain in right knee M25.561 [facility] [id number] [place] [address] 19869- 7574 Nov, [facility] [id number] [place] [address] 54019- 1975 Nov, Chronic pain G89.29 [facility] [id number] [place] [address] 97214- 1296 Nov, Chronic pain G89.29 ; Weight loss R63.4 ; Bone pain M89.8X9 and Insomnia, unspecified type G47.00 [facility] [id number] [place] [address] 77874- 8770 Nov, Chronic pain G89.29 [facility] [address], [place] [address]- 0478 Nov, Chronic pain G89.29 [facility] [address], [place] [address]- 8506 Oct, Chronic pain G89.29 [facility] [id number] [place] [address] 84970- 1960 Oct, UTI symptoms R39.9 [facility] [id number] [place] [address] 71148- 7805 Oct, Chronic pain G89.29 [facility] [id number] [place] [address] 04917- 4161 Oct, Chronic pain G89.29 [facility] [id number] [place] [address] 53602- 3184 Oct, Chronic pain G89.29 [facility] [id number] [place] [address] 06185- 5464 Oct, Right upper quadrant abdominal pain R10.11 [facility] [id number] [place] [address] 31818- 6847 Oct, Chronic pain G89.29 [facility] [id number] [address] Oct, [facility] [id number] [place] [address] 60716- 9046 September, Chronic pain G89.29 [facility] [id number] [place] [address] 02136- 3156 September, Dysuria R30.0 and Urinary tract infection without hematuria , site unspecified N39.0 [facility] [id number] [address] September, [facility] [id number] [place] [address] 59865- 4722 September, Dysuria R30.0 [facility] [id number] [place] [address] 24196- 0510 September, Chronic pain G89.29 [facility] [id number] [place] [address] 83578- 1906 September, Chronic pain G89.29 and Essential hypertension I10 [facility] [id number] [place] [address] 49699- 3160 September, [facility] [id number] [place] [address] 55777- 4830 September, [facility] [id number] [place] [address] 30630- 4323 September, [facility] [id number] [place] [address] 46145- 4287 Aug, UTI symptoms R39.9 [facility] [id number] [place] [address] 37538- 1896 Aug, Dysuria R30.0 [facility] [id number] [place] [address] 11395- 0904 Aug, [facility] [id number] [place] [address] 97850- 3703 Aug, [facility] [id number] [place] [address] 76436- 5254 Aug, [facility] [id number] [place] [address] 99133- 9946 Aug, Chronic pain G89.29 [facility] [facility] [id number] [place] [address] 95390- 9867 Aug, Dysthymia F34.1 [facility] [id number] [place] [address] 42885- 1470 Aug, Conjunctivitis, unspecified conjunctivitis type, unspecified laterality H10.9 [facility] [address] [id number] [place] [address] 2286 31 Jul, 2015 Chronic pain G89.29 ; Back pain M54.9 ; Tobacco abuse Z72.0 and Weight decrease R63.4 [facility] [address] [facility] [id number] [place] [address]- 4966 30 Jul, 2015 [facility] [address] [facility] [id number] [place] [address] 73819 2544 30 Jul, 2015 [facility] [address] [facility] [id number], [place] [address] 2545 24 Jul, 2015 Chronic pain G89.29 [facility] [address] [facility] [id number] [place] [address], [place] [address]- 3396 22 Jul, 2015 [facility] [address] [facility] [id number], [place] [address]- 2542 21 Jul, 2015 [facility] [id number] [place] [address] 04260- 8684 18 Jul, 2015 [facility] [address] [facility] [id number], [place] [address]- 7988 17 Jul, 2015 [facility] [id number] [place] [address]- 8937 17 Jul, 2015 Chronic pain G89.29 [facility] [address] [id number] [place] [address]- 2548 16 Jul, 2015 Chronic pain G89.29 [facility] [address] [facility] [id number], [place] [address]- 3035 15 Jul, 2015 [facility] [address] [facility] [id number] [place] [address]- 5797 10 Jul, 2015 [facility] [address] [facility] [id number], [place] [address] 2541 07 Jul, 2015 [facility] [address] [facility] [id number] [place] [address]- 2547 Jul, [facility] [address] 11550- 8891 Jun, [facility] [address] 14867- 7500 Jun, Depression, unspecified depression type F32.9 [facility] [id number] [place] [address] 89125- 9964 Jun, Pain in right knee M25.561 [facility] [address] 22162- 9420 Jun, Chronic pain G89.29 ; Back pain M54.9 ; Bone pain M89.8X9 and Weight loss R63.4 [address] [address] 61809- 9726 Jun, [place] [address] 80755- 4600 May, [facility] [address] 45062- 5812 May, UTI symptoms R39.9 ; Pain in right knee M25.561 ; Right low back pain, with sciatica presence unspecified M54.5 ; Right foot pain M79.671 ; Hypokalemia E87.6 and Screening, lipid Z13.220 [place] [facility] [id number] [place] [address] 05162- 7759 May, [facility] [id number] [place] [address] 04650- 7377 May, [facility] [id number] [place] [address] 08878- 8597 Mar, [facility] [address] 99084- 0521 Mar, [facility] [id number] [place] [address] 98436- 2104 Mar, Hypokalemia E87.6 [facility] [address] [place] [address]- 6728 Mar, Pain in right leg M79.604 ; Encounter for immunization Z23 ; Pain in right knee M25.561 and Hypokalemia E87.6 [facility] [id number] [place] [address] 44772- 3939 Jan, [facility] [id number] [place] [address] 62539- 5059 Jan, [facility] [id number] [place] [address] 30815- 4536 Jan, Abdominal pain, generalized 789.07 [facility] [address] 87715- 3549 Jan, Abdominal pain, generalized 789.07 [facility] [id number] [place] [address] 35583- 8438 Dec, [facility] [id number] [place] [address] 66847- 6443 Dec, [facility] [id number] [place] [address] 65269- 7319 Dec, [facility] [id number] [place] [address] 86425- 3165 Nov, Hallux valgus 735.0 and Hammertoe 735.4 [facility] [id number] [place] [address] 70241- 6273 Nov, [facility] [id number] [place] [address] 42096- 6895 Nov, Hallux valgus 735.0 and Hammer toe 735.4 [facility] [id number] [place] [address] 43361- 0208 Oct, [facility] [id number] [place] [address] 54424- 2494 Oct, [facility] [id number] [place] [address] 62131- 0321 Oct, Pre-op evaluation V72.84 [facility] [id number] [place] [address] 32125- 7824 Oct, [facility] [id number] [place] [address] 01147- 0995 Oct, [facility] [id number] [place] [address] 41324- 7376 September, [facility] [id number] [place] [address] 59480- 9175 September, [facility] [id number] [place] [address] 758435- 2981 September, Hallux valgus (acquired) 735.0 and Other hammer toe ( acquired) 735.4 [facility] [id number] [place] [address] 75637- 1283 Aug, [facility] [id number] [place] [address] 49176- 2147 Aug, [facility] [id number] [place] [address] 62699- 3169 Jul, [facility] [address] [address]- 2084 Jul, [facility] [address] [address]- 0623 Jul, [facility] [address] [address]- 8167 Jul, [facility] [id number] [place] [address] 793165- 5709 Jul, [facility] [id number] [address]- 3838 Jul, [facility] [address], [place] [address]- 8951 Jul, [facility] [place] [facility] [address] [id number] [place] [address]- 4385 Jul, [facility] [place] [facility] [address] [id number] [place] [address]- 4344 Jun, 2014 [facility] [place] [facility] [address] [id number] [place] [address]- 0696 Jun, 2014 [facility] [place] [facility] [address] [id number] [place] [address]- 4441 Jun, 2014 [facility] [place] [facility] [address] [id number] [place] [address]- 3102 Jun, 2014 [facility] [place] [facility] [address] [id number] [place] [address]- 1111 Jun, [facility] [place] [facility] [address] [facility] [id number] [place] [address]- 3320 Jun, [facility] [place] [facility] [address] [id number] [place] [address]- 3826 Jun, [facility] [place] [facility] [address] [id number] [place] [address]- 3534 Jun, [facility] [place] [facility] [address] [facility] [id number] [place] [address]- 1199 Jun, [facility] [place] [facility] [address] [facility] [id number] [place] [address]- 3118 Jun, [facility] [place] [facility] [address] [id number] [place] [address]- 4761 May, [facility] [place] [facility] [address] [id number] [place] [address]- 2879 May, [facility] [place] [facility] [address] [id number] [place] [address]- 3618 May, [facility] [place] [facility] [address] [facility] [id number] [place] [address]- 1613 May, [facility] [place] [facility] [address] [id number] [place] [address]- 7804 May, [facility] [address] [id number] [place] [address]- 5265 May, [facility] [place] [facility] [address] [id number] [place] [address]- 8988 May, [facility] [place] [facility] [address] [id number] [place] [address]- 2384 May, [facility] [place] [facility] [address] [id number] [place] [address]- 9706 May, [facility] [place] [facility] [address] [id number] [place] [address]- 5486 May, [facility] [place] [facility] [address] [id number] [place] [address]- 8365 May, [facility] [address] [id number] [place] [address]- 5877 May, [facility] [place] [facility] [address] [id number] [place] [address]- 1060 May, [facility] [place] [facility] [address] [id number] [place] [address]- 0105 May, [facility] [place] [facility] [address] [id number] [place] [address]- 6806 May, [facility] [place] [facility] [address] [id number] [place] [address]- 8618 May, [facility] [place] [facility] [address] [id number] [place] [address]- 8185 May, [facility] [place] [facility] [address] [id number] [place] [address]- 7472 May, [facility] [place] [facility] [address] [id number] [place] [address]- 3181 Apr, [facility] [place] [facility] [address] [id number] [place] [address]- 8152 Apr, [facility] [place] [facility] [address] [id number] [place] 4377 Apr, [facility] [place] [facility] [address] [id number] [place] 8978 Apr, [facility] [place] [facility] [address] [id number] [place] [address]- 9200 Apr, [facility] [place] [facility] [address] [id number] [place] [address]- 0522 Apr, [facility] [place] [facility] [address] [id number] [place] 4072 Apr, [facility] [place] [facility] [address] [id number] [place] [address]- 7112 Apr, [facility] [place] [facility] [address] [id number] [place] [address]- 2879 Apr, [facility] [place] [facility] [address] [id number] [place] [address]- 8573 Mar, [facility] [place] [facility] [address] [id number] [place] [address]- 6285 Mar, [facility] [place] [facility] [address] [id number] [place] [address]- 9751 Mar, [facility] [place] [facility] [address] [id number] [place] [address]- 3754 Mar, [facility] [place] [facility] [address] [id number] [place] [address]- 7843 Mar, [facility] [place] [facility] [address] [id number] [place] [address]- 1092 Feb, [facility] [place] [facility] [address] [id number] [place] [address]- 1955 Feb, [facility] [place] [facility] [address] [id number] [place] [address]- 1881 Feb, [facility] [place] [facility] [address] [id number] [place] [address]- 5023 Feb, 2013 [facility] [place] [facility] [address] [id number] [place] 0865 Feb, 2013 [facility] [place] [facility] [address] [id number] [place] [address]- 3582 Feb, 2013 [facility] [place] [facility] [address] [id number] [place] [address]- 1057 Feb, 2013 [facility] [place] [facility] [address] [id number] [place] [address]- 1947 Feb, 2013 [facility] [place] [facility] [address] [id number] [place] 9925 Feb, 2013 [facility] [place] [facility] [address] [id number] [place] [address]- 9569 Feb, 2013 [facility] [place] [facility] [address] [id number] [place] [address]- 5529 Feb, 2013 [facility] [place] [facility] [address] [id number], [place] [address]- 6138 Feb, 2013 [facility] [place] [facility] [address] [id number], [place] [address]- 1143 Feb, 2013 [facility] [place] [facility] [address] [id number], [place] [address]- 6703 Feb, 2013 [facility] [place] [facility] [address] [id number], [place] [address]- 5058 Feb, 2013 [facility] [place] [facility] [address] [id number], [place] [address]- 8704 Feb, 2013 [facility] [place] [facility] [address] [id number][place] 8512 Jan, 2013 [facility] [place] [facility] [address] [id number], [place] [address]- 7537 Jan, 2013 [facility] [place] [facility] [address] [id number], [place] [address]- 9238 20 Jan, 2013 [facility] [place] [facility] [address] [id number] [place] [address]- 5585 Jan, 2013 [facility] [place] [facility] [address] [id number] [place] [address]- 6436 Jan, 2013 [facility] [place] [facility] [address] [id number] [place] [address]- 4626 Jan, 2013 [facility] [place] [facility] [address] [id number] [place] [address]- 5806 Jan, [facility] [place] [facility] [address] [id number] [place] [address]- 2650 Jan, [facility] [place] [facility] [address] [id number] [place] [address]- 8036 Dec, [facility] [place] [facility] [address] [id number] [place] [address]- 5310 Dec, [facility] [place] [facility] [address] [id number] [place] [address]- 4100 Nov, [facility] [place] [facility] [address] [id number] [place] [address]- 3786 Nov, [facility] [place] [facility] [address] [id number] [place] [address]- 2414 Nov, [facility] [place] [facility] [address] [id number] [place] [address]- 1930 Nov, [facility] [place] [facility] [address] [id number] [place] [address]- 0667 Nov, [facility] [place] [facility] [address] [id number] [place] [address]- 3146 Nov, [facility] [place] [facility] [address] [id number] [place] [address]- 5973 Nov, [facility] [place] [facility] [address] [id number] [place] 8312 Nov, [facility] [place] [facility] [address] [id number] [place] [address]- 7577 Nov, [facility] [place] [facility] [address] [id number] [place] [address]- 9586 Oct, [facility] [place] [facility] [address] [id number] [place] 4945 Oct, [facility] [place] [facility] [address] [id number] [place] [address]- 2975 Oct, [facility] [place] [facility] [address] [id number] [place] [address]- 3055 Oct, [facility] [place] [facility] [address] [id number] [place] [address]- 2903 Oct, [facility] [place] [facility] [address] [id number] [place] [address]- 6429 Oct, [facility] [place] [facility] [address] [id number] [place] [address]- 5951 September, [facility] [place] [facility] [address] [id number] [place] [address]- 5437 September, [facility] [place] [facility] [address] [id number] [place] [address]- 7305 September, [facility] [place] [facility] [address] [id number] [place] [address]- 3492 September, [facility] [place] [facility] [address] [id number] [place] [address]- 0403 September, [facility] [place] [facility] [address] [id number] [place] [address]- 4186 September, [facility] [place] [facility] [address] [id number] [place] [address]- 2347 September, [facility] [place] [facility] [address] [id number] [place] [address]- 1939 September, [facility] [place] [facility] [address] [id number] [place] [address]- 4564 September, [facility] [place] [facility] [address] [id number] [place] [address]- 8162 September, [facility] [place] [facility] [address] [id number] [place] [address]- 4045 September, [facility] [place] [facility] [address] [id number] [place] [address]- 0754 September, [facility] [place] [facility] [address] [id number] [place] [address]- 0102 September, [facility] [place] [facility] [address] [id number] [place] [address]- 9329 September, [facility] [place] [facility] [address] [id number] [place] [address]- 2880 September, [facility] [place] [facility] [address] [id number] [place] [address]- 8810 September, [facility] [place] [facility] [address] [id number] [place] [address]- 1374 September, [facility] [place] [facility] [address] [id number] [place] [address]- 1559 September, [facility] [place] [facility] [address] [id number] [place] [address]- 4387 September, [facility] [place] [facility] [address] [id number] [place] [address]- 4669 September, [facility] [place] [facility] [address] [id number] [place] [address]- 6369 Aug, [facility] [place] [facility] [address] [id number] [place] [address]- 2128 Aug, [facility] [place] [facility] [address] [id number] [place] [address]- 8034 Aug, [facility] [place] [facility] [address] [id number] [place] [address]- 2031 Aug, [facility] [place] [facility] [address] [id number] [place] [address]- 1590 Aug, [facility] [place] [facility] [address] [id number] [place] [address]- 3217 18 Aug, 2013 [facility] [address] [id number] [place] [address]- 2362 16 Aug, 2013 [facility] [place] [facility] [address] [id number] [place] [address]- 3756 16 Aug, 2013 [facility] [address] [id number] [place] [address]- 3313 15 Aug, 2013 [facility] [place] [facility] [address] [id number] [place] [address]- 1298 15 Aug, 2013 [facility] [place] [facility] [address] [id number] [place] [address]- 2430 14 Aug, 2013 [facility] [place] [facility] [address] [id number] [place] [address]- 5224 05 Aug, 2013 [facility] [place] [facility] [address] [id number] [place] [address]- 9823 05 Aug, 2013 [facility] [address] [id number] [place] [address]- 3038 Aug, [facility] [place] [facility] [address] [id number] [place] [address]- 8361 03 Aug, 2013 [facility] [address] [id number] [place] [address]- 0566 31 Jul, 2013 [facility] [place] [facility] [address] [id number] [place] [address]- 7868 31 Jul, 2013 [facility] [place] [facility] [address] [id number] [place] [address]- 9277 27 Jul, 2013 [facility] [place] [facility] [address] [id number] [place] [address]- 7042 27 Jul, 2013 [facility] [place] [facility] [address] [id number] [place] [address]- 0033 20 Jul, 2013 [facility] [place] [facility] [address] [id number] [place] [address]- 6195 Jul, [facility] [place] [facility] [address] [id number] [place] [address]- 4774 Jul, [facility] [place] [facility] [address] [id number] [place] [address]- 0299 Jul, [facility] [place] [facility] [address] [id number] [place] [address]- 9113 Jul, [facility] [place] [facility] [address] [id number] [place] [address]- 4106 Jul, [facility] [place] [facility] [address] [id number] [place] [address]- 0589 Jul, [facility] [place] [facility] [address] [id number] [place] [address]- 2438 Jul, [facility] [place] [facility] [address] [id number] [place] [address]- 8589 Jul, [facility] [place] [facility] [address] [id number] [place] [address] Jul, [facility] [place] [facility] [address] [id number] [place] [address] Jul, [facility] [place] [facility] [address] [id number] [place] [address] Jun, [facility] [place] [facility] [address] [id number] [place] [address] Jun, [facility] [place] [facility] [address] [id number], [place] [address] Jun, [facility] [place] [facility] [address] [id number] [place] [address] Jun, [facility] [place] [facility] [address] [id number] [place] [address] Jun, [facility] [place] [facility] [address] [id number] [place] [address] Jun, [facility] [place] [facility] [address] [id number] [place] [address] May, [facility] [address] [id number] [place] [address] May, [facility] [address] [id number] [place] [address] May, [facility] [address] [id number] [place] [address] May, [facility] [address] [id number] [place] [address] May, [facility] [address] [id number] [place] [address] May, [facility] [address] [id number] [place] [address] May, [facility] [address] [id number] [place] [address] May, [facility] [address] [id number] [place] [address] May, [facility] [address] [id number] [place] [address] May, [facility] [address] [id number] [place] [address] May, [facility] [address] [id number] [place] [address] May, [facility] [address] [id number] [place] [address] May, [facility] [place] [facility] [address] [id number] [place] [address] May, [facility] [address] [id number] [place] [address] May, [facility] [address] [id number] [place] [address] Apr, [facility] [address] [id number] [place] [address] Apr, [facility] [place] [facility] [address] [id number] [place] [address] Apr, [facility] [place] [facility] [address] [id number] [place] [address] Apr, [facility] [place] [facility] [address] [id number] [place] [address]- [address] Apr, [facility] [place] [facility] [address] [id number] [place] [address] Apr, [facility] [place] [facility] [address] [id number] [place] [address] Apr, [facility] [place] [facility] [address] [id number] [place] [address] Apr, [facility] [place] [facility] [address] [id number] [place] [address] Apr, [facility] [place] [facility] [address] [id number] [place] [address] Apr, [facility] [place] [facility] [address] [id number], [place] [address] Mar, [facility] [place] [facility] [address] [id number], [place] [address] Mar, [facility] [place] [facility] [address] [id number], [place] [address] Mar, [facility] [place] [facility] [address] [id number], [place] [address] Mar, [facility] [place] [facility] [address] [id number], [place] [address] Mar, [facility] [place] [facility] [address] [id number], [place] [address] Mar, [facility] [place] [facility] [address] [id number], [place] [address] Mar, [facility] [address] [id number] [place] [address] Mar, [facility] [place] [facility] [address] [id number] [place] [address] Mar, [facility] [place] [facility] [address] [id number] [place] [address] Mar, [facility] [place] [facility] [address] [id number] [place] [address] Mar, [facility] [place] [facility] [address] [id number] [place] [address]- [address] Mar, [facility] [place] [facility] [address] [id number] [place] [address] Mar, [facility] [place] [facility] [address] [id number] [place] [address]- [address] Mar, [facility] [place] [facility] [address] [id number] [place] [address]- [address] Mar, [facility] [place] [facility] [address] [id number] [place] [address] Mar, [facility] [place] [facility] [address] [facility] [id number] [place] [address]- [address] Mar, [facility] [place] [facility] [address] [id number], [place] [address] Mar, [facility] [place] [facility] [address] [id number], [place] [address] Mar, [facility] [place] [facility] [address] [id number] [place] [address]- 3098 Mar, [facility] [place] [facility] [address] [id number] [place] [address] Mar, [facility] [place] [facility] [address] [facility] [id number], [place] [address] Mar, [facility] [place] [facility] [address] [id number] [place] [address] Mar, [facility] [place] [facility] [address] [id number] [place] [address] 18 Feb, 2012 [facility] [place] [facility] [address] [id number] [place] [address] 18 Feb, 2012 [facility] [place] [facility] [address] [address] [id number] [place] [address] 16 Feb, 2012 [facility] [place] [facility] [address] [id number] [place] [address] 4590 16 Feb, 2012 [facility] [place] [facility] [address] [id number] [place] [address] 6120 15 Feb, 2012 [facility] [place] [facility] [address] [id number] [place] [address] 0983 09 Feb, 2013 [facility] [place] [facility] [address] [id number] [place] [address] 0[address] 09 Feb, 2013 [facility] [place] [facility] [address] [id number] [place] [address] 7064 07 Feb, 2013 [facility] [place] [facility] [address] [id number] [place] [address] 6945 04 Feb, 2013 [facility] [place] [facility] [address] [id number] [place] [address] 2124 03 Feb, 2013 [facility] [place] [facility] [address] [id number] [place] [address] 3191 30 Jan, 2012 [facility] [place] [facility] [address] [id number] [place] [address] 2545 26 Sep, 2012 [facility] [place] [facility] [address] [id number] [place] [address] 9255 24 Sep, 2012 [facility] [place] [facility] [address] [id number] [place] [address]- 7745 23 Sep, 2012 [facility] [place] [facility] [address] [id number] [place] [address] 8262 Jan, [facility] [place] [facility] [address] [id number] [place] [address] 6701 Dec, [facility] [place] [facility] [address] [id number] [place] [address] 0943 Dec, [facility] [place] [facility] [address] [id number] [place] [address] 7192 Dec, [facility] [place] [facility] [address] [id number] [place] [address]- 8943 Dec, [facility] [place] [facility] [address] [id number] [place] [address] 9819 Dec, [facility] [place] [facility] [address] [id number] [place] [address] 3253 Dec, [facility] [place] [facility] [address] [id number] [place] [address] 9867 Dec, [facility] [place] [facility] [address] [id number] [place] [address] 4765 Nov, [facility] [place] [facility] [address] [id number] [place] [address]- 6414 Nov, [facility] [place] [facility] [address] [id number] [place] [address] 7010 Nov, [facility] [place] [facility] [address] [id number] [place] [address] 2350 Nov, [facility] [place] [facility] [address] [id number] [place] [address] 4379 Nov, [facility] [place] [facility] [address] [id number] [place] [address] 6014 Oct, [facility] [place] [facility] [address] [id number] [place] [address]- 7744 Oct, [facility] [place] [facility] [address] [id number] [place] [address]- 3908 Oct, [facility] [place] [facility] [address] [id number] [place] [address]- 5776 September, [facility] [address] [id number] [place] [address] 3306 September, [facility] [address] [id number] [place] [address]- 4334 September, [facility] [address] [id number] [place] [address] 8416 September, [facility] [address] [id number] [place] [address]- 7244 September, [facility] [address] [id number] [place] [address]- 6921 September, [facility] [address] [id number] [place] [address]- 7156 September, [facility] [address] [id number] [place] [address]- 8467 30 Aug, 2012 [facility] [address] [id number] [place] [address]- 1086 Aug, [facility] [address] [id number] [place] [address]- 1544 Aug, [facility] [address] [id number] [place] [address]- 2374 29 Jul, 2012 [facility] [address] [id number] [place] [address]- 8829 27 Jul, 2012 [facility] [address] [id number] [place] [address]- 7741 26 Jul, 2012 [facility] [address] [id number] [place] [address]- 4107 20 Jul, 2012 [facility] [address] [id number] [place] [address] 18 Jul, 2012 [facility] [address] [id number] [place] [address]- 1661 Jul, [facility] [address] [id number] [place] [address] 2543 Jul, [facility] [address] [id number] [place] [address] 2546 Jun, [facility] [place] [facility] [address] [id number] [place] [address] 2546 Jun, [facility] [place] [facility] [address] [id number] [place] [address] 2546 Jun, [facility] [place] [facility] [address] [id number] [place] [address] 2547 Jun, [facility] [place] [facility] [address] [id number] [place] [address]- 9016 Jun, [facility] [place] [facility] [address] [id number] [place] [address]- 6066 Jun, [facility] [place] [facility] [address] [id number] [place] [address]- 4124 Jun, [facility] [place] [facility] [address] [id number] [place] [address]- 6173 Jun, [facility] [place] [facility] [address] [id number] [place] [address]- 6011 Jun, [facility] [place] [facility] [address] [id number] [place] [address]- 3777 Jun, [facility] [place] [facility] [address] [id number] [place] [address] 2542 May, [facility] [place] [facility] [address] [id number] [place] [address] 2546 May, [facility] [place] [facility] [address] [id number] [place] [address] 2541 May, [facility] [place] [facility] [address] [id number] [place] [address] 2546 May, [facility] [place] [facility] [address] [id number] [place] [address]- 4947 15 May, 2012 [facility] [address] [id number] [place] [address]- 9004 07 May, 2012 [facility] [place] [facility] [address] [id number] [place] [address]- 6766 31 Apr, 2012 [facility] [place] [facility] [address] [id number] [place] [address]- 6406 31 Apr, 2012 [facility] [place] [facility] [address] [id number] [place] [address]- 3039 28 Apr, 2012 [facility] [place] [facility] [address] [id number] [place] [address]- 4377 28 Apr, 2012 [facility] [place] [facility] [address] [id number] [place] [address]- 3642 26 Apr, 2012 [facility] [address] [id number] [place] [address]- 2009 Apr, [facility] [place] [facility] [address] [id number] [place] [address]- 0321 Apr, [facility] [place] [facility] [address] [id number] [place] [address]- 4791 29 Mar, 2012 [facility] [place] [facility] [address] [id number] [place] [address]- 3414 29 Mar, 2012 [facility] [place] [facility] [address] [id number] [place] [address]- 8402 27 Mar, 2012 [facility] [place] [facility] [address] [id number] [place] [address]- 0448 Mar, [facility] [place] [facility] [address] [id number] [place] [address]- 6498 Mar, [facility] [place] [facility] [address] [id number] [place] [address]- 2549 18 Mar, 2012 [facility] [place] [facility] [address] [id number] [place] [address]- 7000 Mar, [facility] [place] [facility] [address] [id number] [place] [address]- 9300 Mar, [facility] [place] [facility] [address] [id number] [place] [address] Mar, [facility] [place] [facility] [address] [id number] [place] [address]- 8771 Mar, [facility] [place] [facility] [address] [id number] [place] [address]- 7969 Mar, [facility] [place] [facility] [address] [id number] [place] [address]- 5071 Mar, [facility] [place] [facility] [address] [id number] [place] [address]- 7369 Mar, [facility] [place] [facility] [address] [id number] [place] [address]- 3039 Mar, [facility] [place] [facility] [address] [id number] [place] [address]- 3011 Mar, [facility] [place] [facility] [address] [id number] [place] [address]- 5228 Mar, [facility] [place] [facility] [address] [id number] [place] [address]- 2318 Mar, [facility] [place] [facility] [address] [facility] [id number] [place] [address]- 7376 Feb, [facility] [place] [facility] [address] [id number], [place] [address]- 5765 Feb, [facility] [place] [facility] [address] [id number] [place] [address]- 1915 Feb, [facility] [place] [facility] [address] [id number] [place] [address]- 3853 Feb, [facility] [place] [facility] [address] [id number] [place] [address] Feb, [facility] [place] [facility] [address] [id number], [place] [address]- 3577 16 Feb, 2012 [facility] [place] [facility] [address] [id number] [place] [address]- 0923 Feb, [facility] [place] [facility] [address] [id number] [place] [address]- 8396 Feb, [facility] [place] [facility] [address] [id number] [place] [address]- 2609 05 Feb, 2012 [facility] [place] [facility] [address] [id number] [place] [address]- 4284 04 Feb, 2012 [facility] [place] [facility] [address] [id number] [place] [address]- 0576 Feb, [facility] [place] [facility] [address] [id number] [place] [address]- 4908 27 Jan, 2012 [facility] [place] [facility] [address] [id number] [place] [address]- 9029 25 Jan, 2012 [facility] [place] [facility] [address] [id number] [place] [address]- 7518 13 Jan, 2012 [facility] [place] [facility] [address] [id number] [place] [address]- 8028 12 Jan, 2012 [facility] [place] [facility] [address] [id number] [place] [address]- 1684 07 Jan, 2012 [facility] [place] [facility] [address] [id number] [place] [address]- 0903 31 Dec, 2011 [facility] [place] [facility] [address] [id number] [place] [address]- 3268 24 Dec, 2011 [facility] [place] [facility] [address] [id number] [place] [address]- 5336 Dec, [facility] [place] [facility] [address] [id number] [place] [address]- 8104 18 Dec, 2011 [facility] [place] [facility] [address] [id number] [place] [address]- 4451 16 Dec, 2011 [facility] [place] [facility] [address] [id number] [place] [address]- 2546 Dec, [facility] [address] [id number] [place] [address]- 0356 Dec, [facility] [place] [facility] [address] [id number] [place] [address]- 2546 Dec, [facility] [address] [id number] [place] [address]- 3179 Nov, [facility] [address] [id number] [place] [address]- 8310 Nov, [facility] [address] [id number] [place] [address]- 1690 Nov, [facility] [address] [id number] [place] [address]- 9216 Nov, [facility] [address] [id number] [place] [address]- 4246 Nov, [facility] [address] [id number] [place] [address]- 2135 Oct, [facility] [address] [id number] [place] [address]- 7796 Oct, [facility] [address] [id number] [place] [address]- 9106 September, [facility] [address] [id number] [place] [address]- 8086 September, [facility] [address] [id number] [place] [address]- 4956 September, [facility] [place] [facility] [address] [id number] [place] [address]- 0016 September, [facility] [address] [id number] [place] [address]- 2546 September, [facility] [address] [id number] [place] [address]- 7740 September, [facility] [address] [id number] [place] [address]- 2569 September, [facility] [place] [facility] [address] [id number] [place] [address]- 1024 September, [facility] [place] [facility] [address] [id number] [place] 6733 September, [facility] [place] [facility] [address] [id number] [place] [address]- 8247 September, [facility] [address] [id number] [place] [address]- 8480 September, [facility] [place] [facility] [address] [id number] [place] [address]- 5850 September, [facility] [place] [facility] [address] [id number] [place] [address]- 2160 September, [facility] [place] [facility] [address] [id number] [place] [address]- 6035 September, [facility] [place] [facility] [address] [id number] [place] [address]- 3947 24 Aug, 2011 [facility] [place] [facility] [address] [id number] [place] [address]- 3893 Aug, [facility] [place] [facility] [address] [id number] [place] [address]- 8393 Aug, [facility] [place] [facility] [address] [id number] [place] [address]- 8928 Aug, [facility] [place] [facility] [address] [id number] [place] [address]- 9537 Jul, [facility] [place] [facility] [address] [id number] [place] [address]- 9190 13 Jul, 2011 [facility] [place] [facility] [address] [id number] [place] [address]- 6058 Jul, [facility] [place] [facility] [address] [id number] [place] [address]- 3294 28 Jun, 2011 [facility] [address] [id number] [place] [id number] Jun, [facility] [address] [id number] [place] [address]- 2026 13 Jun, 2011 [facility] [address] [id number] [place] [address]- 7096 10 Jun, 2011 [facility] [address] [id number] [place] [address]- 0266 07 Jun, 2011 [facility] [address] [id number] [place] [address]- 3286 07 Jun, 2011 [facility] [address] [id number] [place] [address]- 2546 03 Jun, 2011 [facility] [address] [id number] [place] [address]- 9398 02 Jun, 2011 [facility] [address] [id number] [place] [address]- 1751 May, [facility] [id number] [place] [address]- 8265 May, [facility] [address] [id number] [place] [address]- 4159 May, [facility] [address] [id number] [place] [address]- 8589 May, [facility] [place] [facility] [address] [id number], [place] [address]- 2540 May, [facility] [place] [facility] [address] [id number] [place] [address]- 8816 May, [facility] [place] [facility] [address] [id number] [place] [address]- 2563 May, [facility] [address] [id number], [place] [address]- 8107 May, [facility] [place] [facility] [address] [id number] [place] [address]- 0282 May, [facility] [address] [id number] [place] [address]- 3318 May, [facility] [place] [facility] [address] [id number] [place] [address]- 3045 17 May, 2011 [facility] [id number] [place] [address], [place] [address]- 4679 May, [facility] [address] [id number] [place] [address]- 9821 May, [facility] [address] [id number] [place] [address]- 1426 May, [facility] [address] [id number] [place] [address]- 7192 Apr, [facility] [address] [id number] [place] [address]- 1080 Apr, [facility] [address] [id number] [place] [address]- 8216 Apr, [facility] [address] [id number] [place] [address]- 8170 Mar, [facility] [place] [facility] [address] [id number] [place] [address]- 2825 Mar, [facility] [address] [id number] [place] [address]- 4507 Feb, [facility] [place] [facility] [address] [id number] [place] [address]- 1610 Feb, [facility] [place] [facility] [address] [id number] [place] [address]- 0459 Feb, [facility] [place] [facility] [address] [id number] [place] [address]- 1526 Feb, [facility] [place] [facility] [address] [id number] [place] [address]- 9780 13 Feb, 2011 [facility] [place] [facility] [address] [id number] [place] [address]- 6358 28 Apr, 2010 [facility] [place] [facility] [address] [id number] [place] [address]- 8716 22 Apr, 2010 [facility] [place] [facility] [address] [id number] [place] [address] 2546 16 Apr, 2010 [facility] [place] [facility] [address] [id number] [place] [address] 2546 15 Apr, 2010 [facility] [place] [facility] [address] [id number] [place] [address]- 3496 15 Apr, 2010 [facility] [place] [facility] [address] [id number] [place] [address]- 5266 Apr, [facility] [place] [facility] [address] [id number] [place] [address]- 5253 24 Mar, 2010 [facility] [place] [facility] [address] [id number] [place] [address]- 9801 17 Mar, 2010 [facility] [place] [facility] [address] [id number] [place] [address]- 7184 17 Mar, 2010 [facility] [place] [facility] [address] [id number] [place] [address]- 1393 28 Feb, 2010 [facility] [place] [facility] [address] [id number] [place] [address]- 3245 Feb, [facility] [place] [facility] [address] [id number] [place] [address]- 9823 Feb, [facility] [place] [facility] [address] [id number] [place] [address]- 7772 15 Feb, 2010 [facility] [place] [facility] [address] [id number] [place] [address]- 2425 18 Dec, 2009 [facility] [place] [facility] [address] [id number] [place] [address]- 7714 Dec, [facility] [place] [facility] [address] [facility] [id number] [place] [id number] [address] Oct, [facility] [address] [facility] [id number], [place] [address]- 2481 Mar, [facility] [address] [facility] [id number][place] [id number] [address] Mar, [place] [address] [facility] [id number], [place] [address]- 2682 September, IMMUNIZATIONS No Known Immunizations SOCIAL HISTORY Never Assessed REASON FOR VISIT pt was diagnosed with a kidney stone last monday that is on her right side. complaining of right lower abdominal pain and right flank pain. jorge PLAN OF CARE Activity Details Follow Up prn Reason: VITAL SIGNS Height 64 in 2017-05-20 Weight 132.4 lbs 2017-05-20 Temperature 97.6 degrees Fahrenheit 2017-05-20 Heart Rate 88 bpm 2017-05-20 Respiratory Rate 20 2017-05-20 BMI 22.72 kg/m2 2017-05-20 Blood pressure systolic 130 mmHg 2017-05-20 Blood pressure diastolic 74 mmHg 2017-05-20 MEDICATIONS Medication Instructions Dosage Frequency Start Date End Date Duration Status Cefdinir 300 MG Orally every 12 hrs 1 capsule 12h Not-Taking Vagifem 10 MCG Vaginal Two times a Week 1 tablet Jul, 30 day( s) Not-Taking Bentyl 20 MG Orally Once a day 1 tablet 24h Active Levofloxacin 750 MG Orally Once a day 1 tablet 24h Not-Taking Neurontin 100 mg Orally 3 times a day 1 capsule 8h September, 30 days Not-Taking Lactobacillus - Orally 4 times a day 2 capsules 6h Not-Taking Toprol XL 50 MG Orally once daily 1 tablet 24h Aug, 30 Active Trazodone HCl 50 mg Orally Once a day 1-2 tablet at bedtime as needed 24h Apr, Not-Taking Potassium Chloride ER 20 MEQ Orally Once a day 1 capsule 24h Mar, 90 days Not-Taking Dicyclomine HCl 20 mg Orally Four times a day prn 1 tablet Apr, Active Dicyclomine HCl 20 MG Orally 2 times a day 1 tablet 30 to 60 minutes before meals 12h 90 days Not-Taking Keflex 500 mg Orally 3 times a day 1 capsule 8h May, May, 07 days Active Hydrocodone-Acetaminophen 5-325 MG Orally every 6 hrs 1 tablet as needed 6h May, May, 4 days Active Ventolin HFA 108 (90 Base) MCG/ACT Inhalation every 4 hrs 2 puffs as needed 4h Nov, Active Fluticasone Propionate 50 MCG/ACT Nasally twice a day 1 spray in each nostril 12h Feb, 30 day(s) Active Ibuprofen 600 MG Orally Three times a day 1 tablet with food as needed 8h Not-Taking Acetaminophen-Codeine #3 300-30 MG Orally every 6 hrs 1 tablet as needed 6h Oct, 28 days Active Phenazopyridine HCl 200 MG Orally Three times a day 1 tablet after meals 8h Not-Taking Flomax 0.4 MG Orally Once a day 1 capsule 24h May, May, 14 days Active Lansoprazole 30 MG Orally Once a day 1 capsule 24h 30 days Active Motrin 800 MG Orally Three times a day 1 tablet with food or milk 8h Not-Taking Loratadine 10 MG Orally Once a day 1 tablet 24h 30 Not-Taking Chlordiazepoxide HCl 10 MG Orally Three times a day 2 capsules 8h Aug, 28 days Active Robaxin 500 mg Orally 4 times a day 1 tablet 6h 30 Active RESULTS Name Result Date Reference Range UA LONG DIP (IN HOUSE) 2017-05-20 Lot # [id number] Exp date 2018 01 30 Clarity clear Color yellow Odor none GLU negative ANURAG negative KET negative SG 1.015 BLO trace pH 6.5 Protein negative URO 0.2 NIT negative LOUIE negative Lot # [id number] Exp date august 2017 PROCEDURES Procedure Date Ordered Result Body Site URINALYSIS, AUTO, W/O SCOPE May 20, 2017 [facility] VISIT ESTABLISHED PATIENT May 20, 2017 INSTRUCTIONS MEDICATIONS ADMINISTERED No Known Medications [...]
--- OUTSIDE RECORDS SUMMARY | 2017-11-27 15:47 | XMS REPORT ---
Author Author VALERIE ZAVALA [facility] Address [address] [place] [address] Care Team Providers Care Yarn Worker Name Role Phone VALERIE ZAVALA Unavailable PROBLEMS Type Condition ICD9-CM Code JEH33-UM Code Onset Dates Condition Status SNOMED Code Problem Generalized anxiety disorder F41.1 Active 54985280 Problem Hypokalemia E87.6 Active 486789291 Problem Right low back pain, with sciatica presence unspecified M54.5 Active 072141234 Problem Post-traumatic stress disorder, chronic F43.12 Active 19538600 Problem Pain in right knee M25.561 Active 09313402 Problem Gastroesophageal reflux disease without esophagitis K21.9 Active 851723839 Problem UTI symptoms R39.9 Active 83154251 Problem Essential hypertension I10 Active 48747626 Problem Anxiety F41.9 Active 08976508 Problem Neuropathy G62.9 Active 443186693 Problem Other chronic pain G89.29 Active 98501493 Problem Generalized abdominal pain R10.84 Active 721185267 Problem Chronic pain G89.29 Active 33164300 Problem Back pain M54.9 Active 619647181 Problem Right foot pain M79.671 Active 40035579 Problem Panic attacks F41.0 Active 215979720 Problem Other emphysema J43.8 Active 07915786 Problem Kidney stones N20.0 Active 52592505 Problem Renal calculus, right N20.0 Active 32813404 Problem Weight decrease R63.4 Active 455629238 Problem Tobacco abuse Z72.0 Active 66997109 Problem Bone pain M89.8X9 Active 70880986 Problem Depression, unspecified depression type F32.9 Active 19298606 Problem Insomnia, unspecified type G47.00 Active 457101431 Problem Pulmonary emphysema, unspecified emphysema type J43.9 Active 74951305 Problem Right upper quadrant abdominal pain R10.11 Active 488008344 Problem Weight loss R63.4 Active 191794608 ALLERGIES No Information ENCOUNTERS Encounter Location Date Diagnosis [facility] [id number] [place] [address] 81385- 6401 Nov, [facility] [id number] [place] [address] 86660- 8356 Oct, [facility] [id number] [place] [address] 72796- 6898 Oct, [facility] [address] 52802- 6731 Oct, Medicare welcome exam Z00.00 [facility] [address] 82135- 8700 September, Back pain M54.9 and Right anterior knee pain M25.561 [facility] [address] 35797- 3587 September, [facility] [address] 32952- 6072 September, [facility] [id number] [place] [address] 03438- 5126 September, Essential hypertension I10 [facility] [id number] [place] [address] 28704- 5786 September, [facility] [id number] [place] [address] 57205- 8965 September, RLQ abdominal pain R10.31 ; Low back pain M54.5 and Other chronic pain G89.29 [facility] [id number] [place] [address] 50841- 7738 Aug, Medicare welcome exam Z00.00 [facility] [id number] [place] [address] 62658- 9188 Aug, [facility] [id number] [place] [address] 42342- 2256 Aug, Acute pyelonephritis N10 and Medicare welcome exam Z00.00 [facility] [address] [address] Aug, Dysuria R30.0 and Acute pyelonephritis N10 [facility] [id number] [place] [address] 75550- 1865 Aug, [facility] [id number] [place] [address] 70251- 0274 Aug, [facility] [id number] [place] [address] 61223- 6883 Aug, [facility] [id number] [place] [address] 63995- 5086 Aug, [facility] [id number] [place] [address] 76360- 2180 Jul, [facility] [id number] [place] [address] 85062- 5657 Jul, Renal calculus, right N20.0 and Medicare welcome exam Z00.00 [facility] [id number] [place] [address] 81773 -1996 Jul, Dysuria R30.0 and Renal calculus, right N20.0 [facility] [address] [place] [address] 98157- 3894 Jul, Medicare welcome exam Z00.00 [facility] [id number] [place] [address] 37056- 3831 Jun, Gastroesophageal reflux disease without esophagitis K21.9 and Generalized abdominal pain R10.84 [facility] [id number] [place] [address] 22042- 5464 Jun, Medicare welcome exam Z00.00 [facility] [id number] [place] [address] 91249- 5521 Jun, [facility] [id number] [place] [address] 91928- 0751 Jun, Medicare welcome exam Z00.00 and Encounter for screening mammogram for malignant neoplasm of breast Z12.31 [place] [id number] [place] [address] 56081- 2186 02 Jun, 2017 Chronic pain G89.29 [facility] [id number] [place] [address] 27236- 9461 May, [place] [address] 26964- 3784 May, Pelvic pain R10.2 [place] [id number] [place] [address] 76501- 4462 May, Pelvic pain R10.2 [facility] [place] [id number] [place] [address] 95748 -8032 May, Renal calculus, right N20.0 [place] [address] 32171- 8672 May, Hematuria, unspecified type R31.9 and Nephrolithiasis N20.0 [facility] [id number] [place] [address] 43879 -9991 May, Dysuria R30.0 and Nephrolithiasis N20.0 [place] [id number] [place] [address] 94178- 9408 May, [facility] [id number] [place] [address] 48203 -6391 May, Abdominal pain R10.9 and Kidney stone N20.0 [place] [id number] [place] [address] 12232- 2644 May, [place] [address] 43096- 9732 May, Chronic pain G89.29 and Panic attacks F41.0 [place] [id number] [place] [address] 25904- 0516 May, Urinary tract infection without hematuria, site unspecified N39.0 [facility] [address] [address]- 2281 Apr, Right lower quadrant abdominal pain R10.31 and Abnormal serum lipase level R74.8 [facility] [address] [address]- 0031 Apr, Recurrent urinary tract infection N39.0 [facility] [address] [place] [address] 00703- 8183 Apr, UTI symptoms R39.9 ; Recurrent urinary tract infection N39.0 and Pelvic pain R10.2 [place] [address] [place] [address] 08301- 6303 Apr, Chronic pain G89.29 and Panic attacks F41.0 [facility] [address] [place] [address] 90900- 8535 Apr, Dysuria R30.0 [facility] [address] [place] [address] 00485- 7068 Apr, [facility] [address] [place] [address] 26516- 9477 Apr, Dysuria R30.0 and Urinary tract infection without hematuria , site unspecified N39.0 [facility] [address] [address]- 4849 Mar, UTI symptoms R39.9 [facility] [address] [address]- 0233 Mar, [facility] [address] [place] [address] 11047- 2345 Mar, Panic attacks F41.0 and Chronic pain G89.29 [facility] [address] [address]- 6023 Mar, [facility] [address] [place] [address] 04829- 8044 Mar, Dysuria R30.0 [facility] [id number] [place] [address] 71804- 1306 Mar, Dysuria R30.0 [facility] [id number] [place] [address] 64211- 4148 Feb, Chronic pain G89.29 ; Shortness of breath R06.02 ; Weight loss R63.4 ; Encounter for immunization Z23 ; Bone pain M89.8X9 ; Right anterior knee pain M25.561 and Cough R05 [place] [id number] [place] [address] 01210- 8584 Feb, Shortness of breath R06.02 [place] [id number] [place] [address] 15183- 2638 Feb, [place] [address] 04122- 2394 Feb, Panic attacks F41.0 and Chronic pain G89.29 [place] [id number] [place] [address] 99292- 4392 Feb, [place] [address] 19360- 6080 Feb, Panic attacks F41.0 ; Shortness of breath R06.02 and Encounter for immunization Z23 [place] [id number] [place] [address] 08275- 7342 Jan, [place] [address] 97506- 3260 15 Jan, 2017 Anxiety F41.9 and Chronic pain G89.29 [place] [address] 58469- 1094 Dec, Anxiety F41.9 and Chronic pain G89.29 [place] [id number] [place] [address] 35230- 4115 Nov, Chronic pain G89.29 [place] [id number] [place] [address] 39550- 4187 Nov, Anxiety F41.9 [facility] [id number] [place] [address] 15828- 6585 Nov, Chronic pain G89.29 ; Essential hypertension I10 and Other emphysema J43.8 [facility] [id number] [place] [address] 29794- 2611 Oct, Anxiety F41.9 [facility] [id number] [place] [address] 46271- 4524 Oct, [facility] [address] 61301- 2326 Oct, Chronic pain G89.29 [facility] [id number] [place] [address] 99269- 1537 September, Recurrent UTI N39.0 ; Neuropathy G62.9 and Anxiety F41.9 [facility] [id number] [place] [address] 40933- 0086 September, [facility] [id number] [place] [address] 49801- 7696 September, Chronic pain G89.29 [facility] [id number] [place] [address] 91361- 7309 September, [facility] [id number] [place] [address] 03004- 5401 Aug, Post-traumatic stress disorder, chronic F43.12 ; Chronic urinary tract infection N39.0 ; Gastroesophageal reflux disease without esophagitis K21.9 ; Chronic pain G89.29 ; Essential hypertension I10 and Tobacco abuse Z72.0 [facility] [id number] [place] [address] 39217 -2644 Aug, [facility] [id number] [place] [address] 73612- 3582 Aug, Chronic pain G89.29 [facility] [address] [address]- 0730 18 Aug, 2016 Insomnia, unspecified type G47.00 [facility] [address] [place] [address] 18780- 8360 13 Aug, 2016 [facility] [address] [address]- 4146 24 Jul, 2016 Chronic pain G89.29 [facility] [address] [place] [address] 36933- 1420 Jul, [facility] [address] [place] [address] 75118- 7946 Jul, [facility] [address] [place] [address] 06261- 7184 20 Jul, 2016 [facility] [address] [place] [address] 99420- 2187 15 Jul, 2016 Recurrent UTI (urinary tract infection) N39.0 [facility] [address] [address]- 9549 Jul, [facility] [address] [place] [address] 62100- 1902 Jun, Chronic pain G89.29 [facility] [address] [address]- 3094 17 Jun, 2016 [facility] [address] [address]- 7435 Jun, [facility] [address] [address]- 1697 May, Chronic pain G89.29 [facility] [address] [address]- 5032 May, Weight loss R63.4 and Shortness of breath R06.02 [facility] [address] [address]- 1776 May, Chronic pain G89.29 ; Weight loss R63.4 and Tobacco abuse Z72.0 [facility] [id number] [place] [address] 87138- 0360 May, [facility] [id number] [place] [address] 63399- 5271 May, Hypoxia R09.02 [facility] [id number] [place] [address] 38326- 2995 May, [facility] [id number] [place] [address] 43754- 0910 May, Pulmonary emphysema, unspecified emphysema type J43.9 [facility] [address] 44047 -5977 May, [facility] [id number] [place] [address] 46762- 5110 May, [place] [id number] [place] [address] 59334- 2864 May, [place] [id number] [place] [address] 06843- 3424 May, Chronic pain G89.29 ; Encounter for immunization Z23 ; Right anterior knee pain M25.561 and Cough R05 [place] [id number] [place] [address] 95337- 0077 Apr, Chronic pain G89.29 [place] [id number] [place] [address] 50829- 2913 Apr, [place] [id number] [place] [address] 43787- 9665 Apr, Generalized anxiety disorder F41.1 and Depression, unspecified depression type F32.9 [place] [id number] [place] [address] 43190- 1484 Apr, Chronic pain G89.29 ; Hypokalemia E87.6 and Insomnia, unspecified type G47.00 [place] [address] [place] [address] [address]- 5432 16 Apr, 2016 [facility] [address] [facility] [id number] [place] [address]- 7636 Apr, Chronic pain G89.29 [facility] [address] [facility] [id number] [place]- 7415 Apr, [facility] [address] [facility] [id number] [place] [address]- 8363 Mar, [facility] [address] [facility] [id number] [place] [address]- 2308 Mar, Insomnia, unspecified type G47.00 [facility] [address] [facility] [id number] [place] [address]- 7150 Mar, Chronic pain G89.29 [facility] [address] [address]- 4623 Mar, [facility] [id number] [address]- 6367 Feb, [facility] [id number] [address]- 1316 Feb, [facility] [id number] [address]- 2802 Feb, [facility] [id number] [address]- 6627 Feb, [facility] [place] [facility] [address] [facility] [id number] [place] [address]- 2058 Feb, [facility] [place] [facility] [address] [facility] [id number] [place] [address]- 6641 29 Jan, 2016 [facility] [place] [facility] [address] [facility] [id number] [place] [address]- 5629 Jan, [facility] [place] [facility] [id number] [address]- 2849 20 Jan, 2016 [facility] [address] [address]- 2016 13 Jan, 2016 [facility] [address] [place] [address] 22636- 6474 12 Jan, 2016 [facility] [address] [place] [address] 44437- 4295 07 Jan, 2016 Chronic pain G89.29 [facility] [id number] [place] [address] 72160 2549 Jan, Chronic pain G89.29 and Fibromyalgia M79.7 [facility] [id number] [place] [address] 72049- 8814 Dec, Depression, unspecified depression type F32.9 and Generalized anxiety disorder 300.02 [facility] [address] [place] [address] 54628- 5656 Dec, Dysthymia F34.1 ; Insomnia, unspecified type G47.00 and Chronic pain G89.29 [facility] [address] [address]- 4709 Dec, Chronic pain G89.29 [facility] [id number] [place] [address] 77855- 5363 Dec, Insomnia, unspecified type G47.00 [facility] [address] [address]- 3889 Dec, Fibromyalgia M79.7 and Chronic pain G89.29 [facility] [address] [place] [address]- 9329 Dec, [facility] [address] [place] [address] 49304- 3092 Dec, [facility] [address] [place] [address] 37832- 4491 Dec, [facility] [address] [place] [address]- 5920 Dec, [facility] [id number] [place] [address] 77387- 1267 Dec, Chronic pain G89.29 [facility] [id number] [place] [address] 91124- 4503 Dec, [facility] [id number] [place] [address] 80137- 6553 Dec, [facility] [id number] [place] [address] 95668- 2942 Dec, [facility] [id number] [place] [address] 52694- 3097 Dec, Chronic pain G89.29 and Dysthymia F34.1 [facility] [id number] [place] [address] 33869- 9471 Nov, [facility] [id number] [place] [address] 56207- 5724 Nov, Hypokalemia E87.6 and Chronic pain G89.29 [facility] [id number] [place] [address] 13201- 8435 Nov, Back pain M54.9 and Pain in right knee M25.561 [facility] [id number] [place] [address] 51722- 9896 Nov, [facility] [id number] [place] [address] 26306- 8150 Nov, Chronic pain G89.29 [facility] [id number] [place] [address] 52285- 2547 Nov, Chronic pain G89.29 ; Weight loss R63.4 ; Bone pain M89.8X9 and Insomnia, unspecified type G47.00 [facility] [id number] [place] [address] 49833- 6163 Nov, Chronic pain G89.29 [facility] [id number] [place] [address] 64564- 5581 Nov, Chronic pain G89.29 [facility] [address] [facility] [id number] [place] [address] 2546 30 Oct, 2015 Chronic pain G89.29 [facility] [address] [place] [address] 23827 2546 Oct, UTI symptoms R39.9 [facility] [address] [place] [address] 29316 2546 Oct, Chronic pain G89.29 [facility] [address] [facility] [id number] [place] [address] 19999 2546 Oct, Chronic pain G89.29 [facility] [id number] [place] [address] 61264 2546 Oct, Chronic pain G89.29 [facility] [address] [place] [address] 18108- 0676 Oct, Right upper quadrant abdominal pain R10.11 [facility] [address] [place] [address] 13079 2546 Oct, Chronic pain G89.29 [facility] [address] [place] [address] 75376 2542 Oct, [facility] [address] [place] [address] 55883 2541 September, Chronic pain G89.29 [facility] [address] [place] [address] 63167 2548 September, Dysuria R30.0 and Urinary tract infection without hematuria , site unspecified N39.0 [facility] [address] [place] [address] 97645- 3386 September, [facility] [address] [place] [address] 66136- 2246 September, Dysuria R30.0 [facility] [address] [place] [address] 26382- 8839 September, Chronic pain G89.29 [facility] [address] [address]- 2871 September, Chronic pain G89.29 and Essential hypertension I10 [facility] [id number] [place] [address] 07023- 4110 September, [facility] [id number] [place] [address] 72105- 3304 September, [facility] [id number] [place] [address] 60724- 6528 September, [facility] [id number] [place] [address] 70555- 6418 Aug, UTI symptoms R39.9 [facility] [id number] [place] [address] 68588- 7042 Aug, Dysuria R30.0 [facility] [id number] [place] [address] 87110- 8316 Aug, [facility] [id number] [place] [address] 97276- 7028 Aug, [facility] [id number] [place] [address] 54418- 4471 Aug, [facility] [address] [place] [address] 68294- 5003 Aug, Chronic pain G89.29 [facility] [id number] [place] [address] 17669- 3989 Aug, Dysthymia F34.1 [facility] [address] [place] [address] 44234- 7279 Aug, Conjunctivitis, unspecified conjunctivitis type, unspecified laterality H10.9 [facility] [address] [address] Jul, Chronic pain G89.29 ; Back pain M54.9 ; Tobacco abuse Z72.0 and Weight decrease R63.4 [facility] [address] [facility] [id number] [place] [address] 30 Jul, 2015 [facility] [address] [facility] [id number] [place] [address] 30 Jul, 2015 [facility] [address] [facility] [id number] [place] [address] 24 Jul, 2015 Chronic pain G89.29 [facility] [address] [facility] [id number] [place] [address] 22 Jul, 2015 [facility] [address] [facility] [id number] [place] [address] 21 Jul, 2015 [facility] [address] [facility] [id number] [place] [address] 18 Jul, 2015 [facility] [address] [place] [address] 17 Jul, 2015 [facility] [id number] [address] 17 Jul, 2015 Chronic pain G89.29 [facility] [address] [address] 16 Jul, 2015 Chronic pain G89.29 [facility] [address] [id number] [address] 5[address] 15 Jul, 2015 [facility] [address] [address] 4107 10 Jul, 2015 [facility] [address] [facility] [id number] [place] [address] 0390 07 Jul, 2015 [facility] [address] [facility] [id number] [place] [address] 6942 Jul, [facility] [address] [facility] [id number] [place] [address]- 5552 Jun, [facility] [address] [id number] [address] 87[address] Jun, Depression, unspecified depression type F32.9 [place] [facility] [id number] [place] [address] 43856- 5415 Jun, Pain in right knee M25.561 [place] [id number] [place] [address] 92014- 7533 Jun, Chronic pain G89.29 ; Back pain M54.9 ; Bone pain M89.8X9 and Weight loss R63.4 [place] [id number] [place] [address] 42879- 1856 Jun, [place] [address] [address]- [address] May, [place] [address] [address]47- 3599 May, UTI symptoms R39.9 ; Pain in right knee M25.561 ; Right low back pain, with sciatica presence unspecified M54.5 ; Right foot pain M79.671 ; Hypokalemia E87.6 and Screening, lipid Z13.220 [place] [id number] [place] [address] 50082- 7332 May, [place] [id number] [place] [address] 95540- 7434 May, [place] [id number] [place] [address] 78490- 9017 Mar, [place] [id number] [place] [address] 93847- 0244 Mar, [place] [id number] [place] [address] 58400- 0749 Mar, Hypokalemia E87.6 [place] [id number] [place] [address] 66944- 5239 Mar, Pain in right leg M79.604 ; Encounter for immunization Z23 ; Pain in right knee M25.561 and Hypokalemia E87.6 [facility] [address] [address]- 9536 Jan, [facility] [id number] [place] [address] 95960- 4536 Jan, [facility] [address] [address] 2546 Jan, Abdominal pain, generalized 789.07 [facility] [id number] [place] [address] 72337 2546 Jan, Abdominal pain, generalized 789.07 [facility] [id number] [place] [address] 74299- 0026 Dec, [facility] [id number] [place] [address] 74389- 3226 Dec, [facility] [id number] [place] [address] 53630- 8881 Dec, [facility] [address] [address]- 3328 Nov, Hallux valgus 735.0 and Hammertoe 735.4 [facility] [address] [address]- 8906 Nov, [facility] [address] [address]- 5878 Nov, Hallux valgus 735.0 and Hammer toe 735.4 [facility] [address] [address]- 5596 Oct, [facility] [address] [address]- 5716 Oct, [facility] [address]005[address] [address]- 1326 Oct, Pre-op evaluation V72.84 [facility] [address]005[address] [address] 2546 Oct, [facility] [address]005[address] [address]- 2157 Oct, [facility] [address] [id number] [address]- 6063 September, [facility] [address] [id number] [address]- 2550 September, [facility] [id number] [place] [address] 27369- 1179 September, Hallux valgus (acquired) 735.0 and Other hammer toe ( acquired) 735.4 [facility] [id number] [place] [address] 91687- 2172 Aug, [facility] [id number] [place] [address] 81716- 1244 Aug, [facility] [id number] [place] [address] 99390- 8445 Jul, [facility] [address] [address]- 9516 Jul, [facility] [address]005[address] [address]- 5486 Jul, [facility] [address]00565[address] [address]- 4610 Jul, [facility] [address]00565[address] [address]- 8035 Jul, [facility] [address] [id number] [address]- 7783 Jul, [facility] [address] [id number] [address]- 7255 Jul, [facility] [address] [facility] [id number] [place] [address]- 9999 Jul, [facility] [address]00565[address] [address]- 8622 Jun, 2014 [facility] [place] [facility] [address] [id number] [place] [address]- 9435 Jun, [facility] [place] [facility] [address] [id number] [place] [address]- 7106 Jun, 2014 [facility] [place] [facility] [address] [facility] [id number] [place] [address]- 3059 Jun, 2014 [facility] [place] [facility] [address] [id number] [place] [address]- 9078 Jun, 2014 [facility] [place] [facility] [address] [id number] [place] [address]- 8517 Jun, 2014 [facility] [place] [facility] [address] [facility] [id number] [place] [address]- 8464 Jun, [facility] [place] [facility] [address] [facility] [id number] [place] [address]- 3129 Jun, 2014 [facility] [place] [facility] [address] [facility] [id number] [place] [address]- 5406 Jun, [facility] [place] [facility] [address] [facility] [id number] [place] [address]- 0931 Jun, [facility] [place] [facility] [address] [facility] [id number] [place] [address]- 8659 May, [facility] [place] [facility] [address] [facility] [id number] [place] [address]- 7545 May, [facility] [place] [facility] [address] [facility] [id number] [place] [address]- 7143 May, [facility] [place] [facility] [address] [id number] [place] [address]- 5473 May, [facility] [place] [facility] [address] [facility] [id number] [place] [address]- 1452 May, [facility] [place] [facility] [address] [facility] [id number] [place] [address]- 5992 May, [facility] [place] [facility] [address] [id number] [place] [address]- 4460 May, [facility] [place] [facility] [address] [id number] [place] [address]- 7134 May, [facility] [place] [facility] [address] [id number] [place] [address]- 7706 May, [facility] [place] [facility] [address] [id number] [place] [address]- 4267 May, [facility] [place] [facility] [address] [id number] [place] [address]- 8052 May, [facility] [place] [facility] [address] [id number] [place] [address]- 7349 May, [facility] [place] [facility] [address] [id number] [place] [address]- 7519 May, [facility] [place] [facility] [address] [id number] [place] [address]- 2087 May, [facility] [place] [facility] [address] [id number] [place] [address]- 3331 May, [facility] [place] [facility] [address] [id number] [place] [address]- 3345 May, [facility] [place] [facility] [address] [id number] [place] [address]- 6872 May, [facility] [place] [facility] [address] [id number] [place] [address]- 0499 May, [facility] [place] [facility] [address] [id number] [place] [address]- 3071 Apr, [facility] [place] [facility] [address] [id number] [place] [address]- 3355 Apr, [facility] [place] [facility] [address] [id number] [place] [address]- 5678 Apr, [facility] [place] [facility] [address] [id number] [place] [address]- 4496 Apr, [facility] [place] [facility] [address] [id number] [place] 2490 Apr, [facility] [place] [facility] [address] [id number] [place] [address]- 4855 Apr, [facility] [place] [facility] [address] [id number] [place] [address]- 9416 Apr, [facility] [place] [facility] [address] [id number] [place] [address]- 0602 Apr, [facility] [place] [facility] [address] [id number] [place] 0871 Apr, [facility] [place] [facility] [address] [id number] [place] [address]- 5522 Mar, [facility] [place] [facility] [address] [id number] [place] [address]- 8746 Mar, [facility] [place] [facility] [address] [id number] [place] [address]- 1442 Mar, [facility] [place] [facility] [address] [id number] [place] [address]- 5970 Mar, [facility] [place] [facility] [address] [id number] [place] [address]- 8101 Mar, [facility] [place] [facility] [address] [id number] [place] [address]- 3383 Feb, [facility] [place] [facility] [address] [id number] [place] [address]- 0964 Feb, [facility] [place] [facility] [address] [id number] [place] [address]- 4589 Feb, [facility] [place] [facility] [address] [id number] [place] [address]- 9168 Feb, [facility] [place] [facility] [address] [id number] [place] [address]- 9614 Feb, [facility] [place] [facility] [address] [id number] [place] [address]- 3617 16 Feb, 2013 [facility] [place] [facility] [address] [id number] [place] [address]- 7938 Feb, 2013 [facility] [place] [facility] [address] [id number] [place] [address]- 0952 Feb, 2013 [facility] [place] [facility] [address] [id number] [place] [address]- 1672 Feb, 2013 [facility] [place] [facility] [address] [id number] [place] [address]- 3730 Feb, 2013 [facility] [place] [facility] [address] [id number] [place] [address]- 2801 Feb, 2013 [facility] [place] [facility] [address] [id number] [place] [address]- 3581 Feb, 2013 [facility] [place] [facility] [address] [id number] [place] [address]- 9161 Feb, 2013 [facility] [place] [facility] [address] [id number] [place] [address]- 2076 Feb, 2013 [facility] [place] [facility] [address] [id number] [place] [address]- 2126 Feb, 2013 [facility] [place] [facility] [address] [facility] [id number] [place] [address]- 6781 Feb, 2013 [facility] [place] [facility] [address] [id number] [place] [address]- 8668 23 Jan, 2013 [facility] [place] [facility] [address] [id number] [place] [address]- 4157 23 Sep, 2013 [facility] [place] [facility] [address] [id number] [place] [address]- 5715 20 Sep, 2013 [facility] [place] [facility] [address] [id number] [place] [address]- 1980 19 Sep, 2013 [facility] [place] [facility] [address] [id number] [place] [address]- 9399 Jan, [facility] [place] [facility] [address] [id number] [place] [address]- 2905 Jan, [facility] [place] [facility] [address] [id number] [place] [address]- 1997 Jan, [facility] [place] [facility] [address] [id number] [place] [address]- 1247 Jan, [facility] [place] [facility] [address] [id number] [place] [address]- 5218 Dec, [facility] [place] [facility] [address] [id number] [place] [address]- 3879 Dec, [facility] [place] [facility] [address] [id number] [place] [address]- 8838 Nov, [facility] [place] [facility] [address] [id number] [place] [address]- 1241 Nov, [facility] [place] [facility] [address] [id number] [place] [address]- 3000 Nov, [facility] [place] [facility] [address] [id number] [place] [address]- 2088 Nov, [facility] [place] [facility] [address] [id number] [place] [address]- 5817 Nov, [facility] [place] [facility] [address] [id number] [place] [address]- 4619 Nov, [facility] [place] [facility] [address] [id number] [place] [address]- 2170 Nov, [facility] [place] [facility] [address] [id number] [place] [address]- 5999 Nov, [facility] [place] [facility] [address] [id number] [place] [address]- 5059 Nov, [facility] [place] [facility] [address] [id number] [place] [address]- 1671 Oct, [facility] [place] [facility] [address] [id number] [place] [address]- 3237 Oct, [facility] [place] [facility] [address] [id number] [place] [address]- 4782 Oct, [facility] [place] [facility] [address] [id number] [place] [address]- 0230 Oct, [facility] [place] [facility] [address] [id number] [place] [address]- 6946 Oct, [facility] [place] [facility] [address] [id number] [place] [address]- 6526 Oct, [facility] [place] [facility] [address] [id number] [place] [address]- 0879 September, [facility] [place] [facility] [address] [id number] [place] [address]- 0794 September, [facility] [place] [facility] [address] [id number] [place] [address]- 5759 September, [facility] [place] [facility] [address] [id number] [place] [address]- 1682 September, [facility] [place] [facility] [address] [id number] [place] [address]- 1791 September, [facility] [place] [facility] [address] [id number] [place] [address]- 9026 September, [facility] [place] [facility] [address] [id number] [place] [address]- 9601 September, [facility] [place] [facility] [address] [id number] [place] [address]- 3090 September, [facility] [place] [facility] [address] [id number] [place] [address]- 3667 September, [facility] [place] [facility] [address] [id number] [place] [address]- 6262 September, [facility] [place] [facility] [address] [id number] [place] [address]- 4461 September, [facility] [place] [facility] [address] [id number] [place] [address]- 4343 September, [facility] [place] [facility] [address] [id number] [place] 7441 September, [facility] [place] [facility] [address] [id number] [place] [address]- 6586 September, [facility] [place] [facility] [address] [id number] [place] [address]- 2790 September, [facility] [place] [facility] [address] [id number] [place] [address]- 9019 September, [facility] [place] [facility] [address] [id number] [place] [address]- 9889 September, [facility] [place] [facility] [address] [id number] [place] [address]- 0125 September, [facility] [place] [facility] [address] [id number] [place] [address]- 4790 September, [facility] [place] [facility] [address] [id number] [place] [address]- 9003 September, [facility] [place] [facility] [address] [id number] [place] [address]- 2108 Aug, [facility] [place] [facility] [address] [id number] [place] [address]- 1835 Aug, [facility] [place] [facility] [address] [id number] [place] [address]- 0403 Aug, [facility] [place] [facility] [address] [id number] [place] [address]- 8395 Aug, [facility] [place] [facility] [address] [id number] [place] [address]- 0425 Aug, [facility] [place] [facility] [address] [id number] [place] [address]- 8193 Aug, [facility] [place] [facility] [address] [id number] [place] [address]- 1730 16 Aug, 2013 [facility] [place] [facility] [address] [id number] [place] [address]- 6174 16 Aug, 2013 [facility] [place] [facility] [address] [id number] [place] [address]- 8778 15 Aug, 2013 [facility] [place] [facility] [address] [id number] [place] [address]- 2473 15 Aug, 2013 [facility] [place] [facility] [address] [id number] [place] [address]- 7854 14 Aug, 2013 [facility] [place] [facility] [address] [id number] [place] [address]- 2828 Aug, [facility] [place] [facility] [address] [id number] [place] [address]- 7173 Aug, [facility] [place] [facility] [address] [id number] [place] [address]- 5814 Aug, [facility] [place] [facility] [address] [id number] [place] [address]- 5997 Aug, [facility] [place] [facility] [address] [id number] [place] [address]- 5096 31 Jul, 2013 [facility] [place] [facility] [address] [id number] [place] [address]- 4466 31 Jul, 2013 [facility] [place] [facility] [address] [id number] [place] [address]- 2131 27 Jul, 2013 [facility] [place] [facility] [address] [id number] [place] [address]- 7015 27 Jul, 2013 [facility] [place] [facility] [address] [id number] [place] [address]- 3764 20 Jul, 2013 [facility] [place] [facility] [address] [id number] [place] [address]- 9237 20 Jul, 2013 [facility] [place] [facility] [address] [id number] [place] [address]- 7915 18 Jul, 2013 [facility] [place] [facility] [address] [id number] [place] [address]- 8831 18 Jul, 2013 [facility] [place] [facility] [address] [id number] [place] [address]- 9028 Jul, [facility] [place] [facility] [address] [id number] [place] [address]- 9746 Jul, [facility] [place] [facility] [address] [id number] [place] [address]- 1027 Jul, [facility] [place] [facility] [address] [id number] [place] [address]- 6595 Jul, [facility] [place] [facility] [address] [id number] [place] [address]- 2201 Jul, [facility] [place] [facility] [address] [id number] [place] [address]- 1788 Jul, [facility] [place] [facility] [address] [id number] [place] [address]- 3590 Jul, [facility] [place] [facility] [address] [id number] [place] [address]- 0487 Jun, [facility] [place] [facility] [address] [id number] [place] [address]- 2396 Jun, [facility] [place] [facility] [address] [id number] [place] [address]- 9725 Jun, [facility] [place] [facility] [address] [id number] [place] [address]- 7315 Jun, [facility] [place] [facility] [address] [id number] [place] [address]- 6300 Jun, [facility] [place] [facility] [address] [id number] [place] [address]- 1605 Jun, [facility] [place] [facility] [address] [id number] [place] [address]- 9264 May, [facility] [place] [facility] [address] [id number] [place] [address]- 2631 May, [facility] [place] [facility] [address] [id number] [place] [address] May, [facility] [place] [facility] [address] [id number] [place] [address] May, [facility] [place] [facility] [address] [id number] [place] [address] May, [facility] [place] [facility] [address] [id number] [place] [address] May, [facility] [place] [facility] [address] [id number] [place] [address] May, [facility] [place] [facility] [address] [id number] [place] [address] May, [facility] [place] [facility] [address] [id number] [place] [address] May, [facility] [place] [facility] [address] [id number] [place] [address] May, [facility] [place] [facility] [address] [id number] [place] [address] May, [facility] [place] [facility] [address] [id number] [place] [address] May, [facility] [place] [facility] [address] [id number] [place] [address] May, [facility] [place] [facility] [address] [id number] [place] [address]- [address] May, [facility] [place] [facility] [address] [id number] [place] [address] May, [facility] [place] [facility] [address] [id number] [place] [address]- [address] Apr, [facility] [place] [facility] [address] [id number] [place] [address] Apr, [facility] [place] [facility] [address] [id number] [place] [address]- 1714 Apr, [facility] [address] [id number] [place] [address]- [address] Apr, [facility] [address] [id number] [place] [address] Apr, [facility] [address] [id number] [place] [address]- 9467 Apr, [facility] [place] [facility] [address] [id number] [place] [address]- [address] Apr, [facility] [address] [id number] [place] [address]- [address] Apr, [facility] [address] [id number] [place] [address]- [address] Apr, [facility] [address] [id number] [place] [address] Apr, [facility] [address] [id number] [place] [address] Mar, [facility] [address] [id number] [place] [address]- [address]273 Mar, [facility] [address] [id number] [place] [address]- [address] Mar, [facility] [address] [id number] [place] [address]- [address]78 Mar, [facility] [place] [facility] [address] [id number] [place] [address] Mar, [facility] [place] [facility] [address] [id number] [place] [address] Mar, [facility] [place] [facility] [address] [id number] [place] [address] Mar, [facility] [place] [facility] [address] [id number] [place] [address] Mar, [facility] [place] [facility] [address] [id number] [place] [address]- [address] Mar, [facility] [place] [facility] [address] [id number] [place] [address] 28[address] Mar, [facility] [place] [facility] [address] [id number] [place] [address] Mar, [facility] [place] [facility] [address] [id number] [place] [address]- [address] Mar, [facility] [place] [facility] [address] [id number] [place] [address] Mar, [facility] [place] [facility] [address] [id number] [place] [address]- 39[address] Mar, [facility] [place] [facility] [address] [id number] [place] [address]- [address] Mar, [facility] [place] [facility] [address] [id number] [place] [address]- [address] Mar, [facility] [place] [facility] [address] [id number] [place] [address]- [address] Mar, [facility] [place] [facility] [address] [id number] [place] [address] 14 Mar, 2013 [facility] [place] [facility] [address] [id number] [place] [address]- [address] Mar, [facility] [place] [facility] [address] [id number] [place] [address]- 289[address] Mar, [facility] [place] [facility] [address] [id number] [place] [address]- [address] Mar, [facility] [place] [facility] [address] [id number] [place] [address]- [address] Mar, [facility] [place] [facility] [address] [id number] [place] [address]- [address] Mar, [facility] [place] [facility] [address] [id number] [place] [address]- [address] 18 Feb, 2013 [facility] [place] [facility] [address] [id number] [place] [address]- [address] 18 Feb, 2013 [facility] [place] [facility] [address] [id number] [place] [address]- [address] 16 Feb, 2013 [facility] [place] [facility] [address] [id number] [place] [address]- [address] 16 Feb, 2013 [facility] [place] [facility] [address] [id number] [place] [address]- 268[address] 15 Feb, 2012 [facility] [place] [facility] [address] [id number] [place] [address]- [address] 09 Feb, 2013 [facility] [place] [facility] [address] [id number] [place] [address]- 1700 09 Feb, 2013 [facility] [place] [facility] [address] [id number] [place] [address]- [address] 07 Feb, 2013 [facility] [place] [facility] [address] [id number] [place] [address] 04 Feb, 2013 [facility] [place] [facility] [address] [id number] [place] [address]- [address] 03 Feb, 2013 [facility] [place] [facility] [address] [id number] [place] [address]- [address] 30 Jan, 2013 [facility] [place] [address] [id number] [place] [address] 26 Jan, 2012 [facility] [place] [address] [id number] [place] [address]- [address]48 24 Jan, 2012 [facility] [place] [address] [id number] [place] [address]- [address] 23 Jan, 2013 [facility] [place] [facility] [address] [id number] [place] [address] 17 Jan, 2012 [facility] [place] [facility] [address] [id number] [place] [address] 28 Dec, 2012 [facility] [place] [facility] [address] [id number] [place] [address] Dec, [facility] [place] [facility] [address] [id number] [place] [address] Dec, [facility] [place] [facility] [address] [id number] [place] [address] Dec, [facility] [place] [facility] [address] [id number] [place] [address] Dec, [facility] [place] [facility] [address] [id number] [place] [address] Dec, [facility] [place] [facility] [address] [id number] [place] [address] Dec, [facility] [place] [facility] [address] [id number] [place] [address] Nov, [facility] [place] [facility] [address] [id number] [place] [address] 3067 Nov, [facility] [place] [facility] [address] [id number] [place] [address]- 4035 Nov, [facility] [place] [facility] [address] [id number] [place] [address] 89[address] Nov, [facility] [place] [facility] [address] [id number] [place] [address]106 Nov, [facility] [place] [facility] [address] [id number] [place] [address]- 7491 Oct, [facility] [place] [facility] [address] [id number] [place] [address] 4[address] Oct, [facility] [place] [facility] [address] [id number] [place] [address]- 490[address] Oct, [facility] [place] [facility] [address] [id number] [place] [address]- 3462 September, [facility] [place] [facility] [address] [id number] [place] [address]- 2506 September, [facility] [address] [id number] [place] [address] 6047 September, [facility] [address] [id number] [place] [address]- 1738 September, [facility] [address] [id number] [place] [address]- 1610 September, [facility] [address] [id number] [place] [address]- 1679 September, [facility] [address] [id number] [place] [address]- 1766 September, [facility] [address] [id number] [place] [address]- 2633 Aug, [facility] [address] [id number] [place] [address]- 1204 Aug, [facility] [address] [id number] [place] [address]- 4979 Aug, [facility] [address] [id number] [place] [address]- 7910 29 Jul, 2012 [facility] [address] [id number] [place] [address]- 9632 27 Jul, 2012 [facility] [address] [id number] [place] [address]- 0256 Jul, [facility] [address] [id number] [place] [address]- 6351 Jul, [facility] [address] [id number] [place] [address]- 0082 18 Jul, 2012 [facility] [address] [id number] [place] [address]- 8910 18 Jul, 2012 [facility] [address] [id number] [place] [address]- 3233 13 Jul, 2012 [facility] [address] [id number] [place] [address]- 7051 Jun, [facility] [address] [id number] [place] [address] 2546 Jun, [facility] [place] [facility] [address] [id number] [place] [address] 2546 Jun, [facility] [address] [id number] [place] [address]- 8616 Jun, [facility] [place] [facility] [address] [id number] [place] [address] 2546 15 Jun, 2012 [facility] [address] [id number] [place] [address]- 2026 Jun, [facility] [place] [facility] [address] [id number] [place] [address] 2546 13 Jun, 2012 [facility] [address] [id number] [place] [address]- 5[address] Jun, [facility] [address] [id number] [place] [address]- 8527 Jun, [facility] [address] [id number] [place] [address]- 8980 Jun, [facility] [address] [id number] [place] [address]- 3990 May, [facility] [place] [facility] [address] [id number] [place] [address] 2546 May, [facility] [place] [facility] [address] [id number] [place] [address] 2546 May, [facility] [place] [facility] [address] [id number] [place] [address]- 5926 May, [facility] [place] [facility] [address] [id number] [place] [address]- 2546 May, [facility] [place] [facility] [address] [id number] [place] [address]- 9954 May, [facility] [place] [facility] [address] [id number] [place] [address]- 4324 Apr, [facility] [place] [facility] [address] [id number] [place] [address]- 1996 Apr, [facility] [place] [facility] [address] [id number] [place] [address]- 0416 Apr, [facility] [place] [facility] [address] [id number] [place] [address]- 3186 Apr, [facility] [place] [facility] [address] [id number] [place] [address]- 1373 Apr, [facility] [place] [facility] [address] [id number] [place] [address]- 0653 Apr, [facility] [place] [facility] [address] [id number] [place] [address]- 4041 Apr, [facility] [place] [facility] [address] [id number] [place] [address]- 6182 Mar, [facility] [place] [facility] [address] [id number] [place] [address]- 2508 29 Mar, 2012 [facility] [place] [facility] [address] [id number] [place] [address]- 7521 Mar, [facility] [place] [facility] [address] [id number] [place] [address]- 2366 Mar, [facility] [place] [facility] [address] [id number] [place] [address] 9406 Mar, [facility] [place] [facility] [address] [id number] [place] [address]- 1539 18 Mar, 2012 [facility] [place] [facility] [address] [id number] [place] [address]- 6306 18 Mar, 2012 [facility] [place] [facility] [address] [facility] [id number] [place] [address]- 1716 16 Mar, 2012 [facility] [place] [facility] [address] [id number] [place] [address]- 6363 Mar, [facility] [place] [facility] [address] [id number] [place] [address]- 2159 Mar, [facility] [place] [facility] [address] [id number] [place] [address] Mar, [facility] [place] [facility] [address] [facility] [id number] [place] [address]- 6961 Mar, [facility] [place] [facility] [address] [id number] [place] [address]- 5717 Mar, [facility] [place] [facility] [address] [id number] [place] [address]- 2784 Mar, [facility] [place] [facility] [address] [facility] [id number] [place] [address]- 6520 Mar, [facility] [place] [facility] [address] [facility] [id number] [place] [address]- 3524 Mar, [facility] [place] [facility] [address] [facility] [id number] [place] [address]- 6201 Mar, [facility] [place] [facility] [address] [facility] [id number] [place] [address]- 0284 Feb, [facility] [place] [facility] [address] [facility] [id number] [place] [address]- 4963 Feb, [facility] [place] [facility] [address] [facility] [id number] [place] [address]- 2175 Feb, [facility] [place] [facility] [address] [facility] [id number] [place] [address]- 1453 Feb, [facility] [place] [facility] [address] [facility] [id number] [place] [address]- 7971 Feb, [facility] [place] [facility] [address] [facility] [id number] [place] [address]- 4792 Feb, [facility] [place] [facility] [address] [facility] [id number] [place] [address]- 1425 Feb, [facility] [place] [facility] [address] [id number] [place] [address]- 6160 11 Feb, 2012 [facility] [place] [facility] [address] [id number] [place] [address]- 9653 05 Feb, 2012 [facility] [place] [facility] [address] [id number] [place] [address]- 7586 04 Feb, 2012 [facility] [place] [facility] [address] [id number] [place] [address]- 3377 02 Feb, 2012 [facility] [place] [facility] [address] [id number] [place] [address]- 7875 27 Jan, 2012 [facility] [place] [facility] [address] [id number] [place] [address]- 2971 25 Jan, 2012 [facility] [place] [facility] [address] [id number] [place] [address]- 7974 13 Jan, 2012 [facility] [place] [facility] [address] [id number] [place] [address]- 3169 12 Jan, 2012 [facility] [place] [facility] [address] [id number] [place] [address]- 4265 07 Jan, 2012 [facility] [place] [facility] [address] [id number] [place] [address]- 2250 31 Dec, 2011 [facility] [place] [facility] [address] [id number] [place] [address]- 7938 24 Dec, 2011 [facility] [place] [facility] [address] [id number] [place] [address]- 6631 22 Dec, 2011 [facility] [place] [facility] [address] [id number] [place] [address]- 7414 18 Dec, 2011 [facility] [place] [facility] [address] [id number] [place] [address]- 3704 16 Dec, 2011 [facility] [place] [facility] [address] [id number] [place] [address]- 9268 10 Dec, 2011 [facility] [place] [facility] [address] [id number] [place] [address]- 1284 Dec, [facility] [place] [facility] [address] [id number] [place] [address]- 4726 Dec, [facility] [place] [facility] [address] [id number] [place] [address]- 3618 Nov, [facility] [place] [facility] [address] [id number] [place] [address]- 8389 Nov, [facility] [place] [facility] [address] [id number] [place] [address]- 7785 Nov, [facility] [place] [facility] [address] [id number] [place] [address]- 5809 Nov, [facility] [place] [facility] [address] [id number] [place] [address]- 8757 Nov, [facility] [place] [facility] [address] [id number] [place] [address]- 6996 Oct, [facility] [place] [facility] [address] [id number] [place] [address]- 8573 Oct, [facility] [place] [facility] [address] [id number] [place] [address]- 0430 September, [facility] [place] [facility] [address] [id number] [place] [address]- 0633 September, [facility] [place] [facility] [address] [id number] [place] [address]- 9668 September, [facility] [place] [facility] [address] [id number] [place] [address]- 5025 September, [facility] [place] [facility] [address] [id number] [place] [address]- 8110 September, [facility] [place] [facility] [address] [id number] [place] [address]- 8561 September, [facility] [place] [facility] [address] [id number] [place] [address]- 5973 September, [facility] [place] [facility] [address] [id number] [place] [address]- 6447 September, [facility] [address] [id number] [place] [address]- 8176 September, [facility] [address] [id number] [place] [address]- 1146 September, [facility] [address] [id number] [place] [address]- 2220 September, [facility] [address] [id number] [place] [address]- 1664 September, [facility] [address] [id number] [place] [address]- 3304 September, [facility] [address] [id number] [place] [address]- 9458 September, [facility] [address] [id number] [place] [address]- 7210 24 Aug, 2011 [facility] [address] [id number] [place] [address]- 3316 Aug, [facility] [address] [id number] [place] [address]- 0827 Aug, [facility] [address] [facility] [id number] [place] [address]- 9953 Aug, [facility] [address] [facility] [id number] [place] [address]- 8750 23 Jul, 2011 [facility] [address] [facility] [id number] [place] [address]- 2154 13 Jul, 2011 [facility] [place] [facility] [address] [facility] [id number] [place] [address]- 6324 Jul, [facility] [place] [facility] [address] [facility] [id number] [place] [address]- 5824 28 Jun, 2011 [facility] [place] [address] [facility] [id number] [place] [id number] Jun, [facility] [address] [id number] [place] [address]- 9636 13 Jun, 2011 [facility] [place] [facility] [address] [id number] [place] [address]- 0696 10 Jun, 2011 [facility] [place] [facility] [address] [id number] [place] [address] 2546 07 Jun, 2011 [facility] [place] [facility] [address] [id number] [place] [address]- 3546 07 Jun, 2011 [facility] [place] [facility] [address] [id number] [place] [address]- 5021 03 Jun, 2011 [facility] [place] [facility] [address] [id number] [place] [address]- 5429 Jun, [facility] [place] [facility] [address] [id number] [place] [address]- 7994 May, [facility] [place] [facility] [address] [id number] [place] [address]- 5205 May, [facility] [place] [facility] [address] [id number] [place] [address]- 8486 May, [facility] [place] [facility] [address] [id number] [place] [address]- 2822 May, [facility] [place] [facility] [address] [id number] [place] [address]- 8113 May, [facility] [place] [facility] [address] [id number] [place] [address]- 2176 May, [facility] [place] [facility] [address] [id number] [place] [address]- 6591 May, [facility] [place] [facility] [address] [id number] [place] [address]- 7411 May, [facility] [place] [facility] [address] [id number] [place] [address]- 1586 May, [facility] [place] [facility] [address] [id number] [place] [address]- 7245 May, [facility] [place] [facility] [address] [id number] [place] [address]- 9542 17 May, 2011 [facility] [place] [facility] [address] [id number] [place] [address]- 4068 May, [facility] [place] [facility] [address] [id number] [place] [address]- 5239 May, [facility] [place] [facility] [address] [id number] [place] [address]- 3845 May, [facility] [place] [facility] [address] [id number] [place] [address]- 8720 30 Apr, 2011 [facility] [place] [facility] [address] [id number] [place] [address]- 2567 16 Apr, 2011 [facility] [place] [facility] [address] [id number] [place] [address]- 4507 05 Apr, 2011 [facility] [place] [facility] [address] [id number] [place] [address]- 2033 Mar, [facility] [place] [facility] [address] [id number] [place] [address]- 8552 Mar, [facility] [place] [facility] [address] [id number] [place] [address]- 8729 31 Feb, 2011 [facility] [place] [facility] [address] [id number] [place] [address]- 9770 26 Feb, 2011 [facility] [place] [facility] [address] [id number] [place] [address]- 4316 21 Feb, 2011 [facility] [place] [facility] [address] [id number] [place] [address]- 4162 20 Feb, 2011 [facility] [place] [facility] [address] [id number] [place] [address]- 6058 13 Feb, 2011 [facility] [place] [facility] [address] [id number] [place] [address]- 9739 28 Apr, 2010 [facility] [place] [facility] [address] [id number] [place] [address]- 5026 22 Apr, 2010 [facility] [place] [facility] [address] [id number] [place] [address]- 4866 16 Apr, 2010 [facility] [place] [facility] [address] [id number] [place] [address] 2546 15 Apr, 2010 [facility] [place] [facility] [address] [id number] [place] [address]- 4746 15 Apr, 2010 [facility] [place] [facility] [address] [id number] [place] [address] 2544 Apr, [facility] [place] [facility] [address] [id number] [place] [address]- 6275 24 Mar, 2010 [facility] [place] [facility] [address] [id number] [place] [address]- 4893 17 Mar, 2010 [facility] [place] [facility] [address] [id number] [place] [address]- 6913 Mar, [facility] [place] [facility] [address] [id number] [place] [address]- 0531 Feb, [facility] [place] [facility] [address] [id number] [place] [address]- 7769 Feb, [facility] [place] [facility] [address] [id number] [place] [address]- 8574 Feb, [facility] [place] [facility] [address] [id number] [place] [address]- 6365 15 Feb, 2010 [facility] [place] [facility] [address] [id number] [place] [address] 2543 Dec, [facility] [place] [facility] [address] [id number] [place] [address]- 5336 Dec, [facility] [place] [facility] [address] [id number] [place] [address] 2546 Oct, [facility] [place] [facility] [address] [id number] [place] [address]- 2544 Mar, [facility] [address] [facility] [id number] [place] [address]- 2546 Mar, [facility] [address] [facility] [id number] [place] [address]- 2546 September, IMMUNIZATIONS Vaccine Route Administration Date Status ROCEPHIN 1 GM (IM) IM Intramuscular May 16, 2017 Administered SOCIAL HISTORY Never Assessed REASON FOR VISIT Injection - ALIDA Dillard PLAN OF CARE VITAL SIGNS MEDICATIONS Medication Instructions Dosage Frequency Start Date End Date Duration Status Keflex 500 mg Orally 3 times a day 1 capsule 8h May, May, 07 days Active RESULTS No Results PROCEDURES Procedure Date Ordered Result Body Site ROCEPHIN 1 GM (IM) May 16, 2017 THER/PROPH/DIAG INJ, SC/IM May 16, 2017 INSTRUCTIONS MEDICATIONS ADMINISTERED No Known Medications [...]
--- OUTSIDE RECORDS SUMMARY | 2017-11-27 15:49 | XMS REPORT ---
Author Author VALERIE ZAVALA [facility] Address [address] [place] [address] Care Team Providers Care Hotel Custodian Name Role Phone VALERIE ZAVALA Unavailable PROBLEMS Type Condition ICD9-CM Code GDR01-DS Code Onset Dates Condition Status SNOMED Code Problem Generalized anxiety disorder F41.1 Active 96230626 Problem Hypokalemia E87.6 Active 263568568 Problem Right low back pain, with sciatica presence unspecified M54.5 Active 583503552 Problem Post-traumatic stress disorder, chronic F43.12 Active 57037731 Problem Pain in right knee M25.561 Active 26954312 Problem Gastroesophageal reflux disease without esophagitis K21.9 Active 667893943 Problem UTI symptoms R39.9 Active 46582728 Problem Essential hypertension I10 Active 91785657 Problem Anxiety F41.9 Active 93901192 Problem Neuropathy G62.9 Active 230198801 Problem Other chronic pain G89.29 Active 47980531 Problem Generalized abdominal pain R10.84 Active 111698550 Problem Chronic pain G89.29 Active 02196250 Problem Back pain M54.9 Active 084330842 Problem Right foot pain M79.671 Active 89764798 Problem Panic attacks F41.0 Active 297615504 Problem Other emphysema J43.8 Active 19150478 Problem Kidney stones N20.0 Active 64204300 Problem Renal calculus, right N20.0 Active 80681295 Problem Weight decrease R63.4 Active 200033735 Problem Tobacco abuse Z72.0 Active 49934827 Problem Bone pain M89.8X9 Active 04397309 Problem Depression, unspecified depression type F32.9 Active 31673527 Problem Insomnia, unspecified type G47.00 Active 714387578 Problem Pulmonary emphysema, unspecified emphysema type J43.9 Active 78969002 Problem Right upper quadrant abdominal pain R10.11 Active 586418720 Problem Weight loss R63.4 Active 391239080 ALLERGIES No Information ENCOUNTERS Encounter Location Date Diagnosis [facility] [id number] [address] Nov, [facility] [id number] [place] [address] 68883- 3761 Oct, Gross hematuria R31.0 ; Urinary tract infection without hematuria, site unspecified N39.0 and Weakness R53.1 [facility] [id number] [place] [address] 51237- 3164 Oct, [facility] [id number] [place] [address] 85307- 1283 Oct, [facility] [id number] [place] [address] 64953- 3462 Oct, Medicare welcome exam Z00.00 [facility] [id number] [place] [address] 87796- 9323 September, Back pain M54.9 and Right anterior knee pain M25.561 [facility] [id number] [place] [address] 57664- 6283 September, [facility] [id number] [place] [address] 56424- 8505 September, [facility] [id number] [place] [address] 36268- 5357 September, Essential hypertension I10 [facility] [id number] [place] [address] 04165- 5346 September, [facility] [id number] [place] [address] 95957- 9297 September, RLQ abdominal pain R10.31 ; Low back pain M54.5 and Other chronic pain G89.29 [facility] [id number] [place] [address] 21154- 6969 Aug, Medicare welcome exam Z00.00 [facility] [id number] [place] [address] 43362- 6166 Aug, [facility] [id number] [place] [address] 13671- 0579 Aug, Acute pyelonephritis N10 and Medicare welcome exam Z00.00 [facility] [id number] [place] [address] 25718 -0542 Aug, Dysuria R30.0 and Acute pyelonephritis N10 [facility] [id number] [place] [address] 89843- 5668 Aug, [facility] [id number] [place] [address] 45730- 2280 Aug, [facility] [id number] [place] [address] 89449- 9956 Aug, [facility] [id number] [place] [address] 63956- 9598 Aug, [facility] [id number] [place] [address] 62806- 2360 Jul, [facility] [id number] [place] [address] 20734- 5795 Jul, Renal calculus, right N20.0 and Medicare welcome exam Z00.00 [facility] [id number] [place] [address] 48550 -3461 Jul, Dysuria R30.0 and Renal calculus, right N20.0 [facility] [address], [place] [address] 9829 Jul, Medicare welcome exam Z00.00 [facility] [id number] [place] [address] 23994- 2329 Jun, Gastroesophageal reflux disease without esophagitis K21.9 and Generalized abdominal pain R10.84 [facility] [address], [place] [address] 1301 Jun, Medicare welcome exam Z00.00 [facility] [id number] [place] [address] 84291- 2880 05 Jun, 2017 [facility] [address] 10902- 5716 05 Jun, 2017 Medicare welcome exam Z00.00 and Encounter for screening mammogram for malignant neoplasm of breast Z12.31 [facility] [address] 03997- 6545 02 Jun, 2017 Chronic pain G89.29 [facility] [id number] [place] [address] 67593- 0790 May, [facility] [address] 57557- 8641 May, Pelvic pain R10.2 [facility] [address] 57782- 1448 May, Pelvic pain R10.2 [facility] [id number] [place] [address] 95625 -9492 May, Renal calculus, right N20.0 [facility] [address] 87647- 7273 May, Hematuria, unspecified type R31.9 and Nephrolithiasis N20.0 [facility] [id number] [place] [address] 12791 -8519 May, Dysuria R30.0 and Nephrolithiasis N20.0 [facility] [id number] [place] [address] 98730- 2577 May, [facility] [address] 21149 -3553 May, Abdominal pain R10.9 and Kidney stone N20.0 [facility] [id number] [place] [address] 93667- 4642 May, [facility] [address] 48655- 1863 May, Chronic pain G89.29 and Panic attacks F41.0 [facility] [address], [place] [address]- 4993 May, Urinary tract infection without hematuria, site unspecified N39.0 [facility] [address], [place] [address]- 6743 Apr, Right lower quadrant abdominal pain R10.31 and Abnormal serum lipase level R74.8 [facility] [address], [place] [address]- 9801 Apr, Recurrent urinary tract infection N39.0 [facility] [address] [place] [address] 36930- 9396 Apr, UTI symptoms R39.9 ; Recurrent urinary tract infection N39.0 and Pelvic pain R10.2 [facility] [address] [place] [address] 42177- 5405 Apr, Chronic pain G89.29 and Panic attacks F41.0 [facility] [address], [place] [address]- 2179 Apr, Dysuria R30.0 [facility] [address], [place] [address]- 3581 Apr, [facility] [address], [place] [address]- 7419 Apr, Dysuria R30.0 and Urinary tract infection without hematuria , site unspecified N39.0 [facility] [address], [place] [address]- 8897 Mar, UTI symptoms R39.9 [facility] [id number] [place] [address] 88694- 9991 Mar, [facility] [id number], [place] [address] 3060 Mar, Panic attacks F41.0 and Chronic pain G89.29 [facility] [id number] [place] [address] 17506- 6055 Mar, [facility] [address] 49542- 1143 Mar, Dysuria R30.0 [facility] [id number] [place] [address] 86114- 2856 Mar, Dysuria R30.0 [facility] [address] 61907- 7474 Feb, Chronic pain G89.29 ; Shortness of breath R06.02 ; Weight loss R63.4 ; Encounter for immunization Z23 ; Bone pain M89.8X9 ; Right anterior knee pain M25.561 and Cough R05 [facility] [id number] [place] [address] 37442- 3111 Feb, Shortness of breath R06.02 [facility] [id number] [place] [address] 97034- 9793 Feb, [facility] [id number] [place] [address] 25679- 4893 Feb, Panic attacks F41.0 and Chronic pain G89.29 [facility] [id number] [place] [address] 29534- 7448 Feb, [facility] [id number] [place] [address] 43850- 8966 Feb, Panic attacks F41.0 ; Shortness of breath R06.02 and Encounter for immunization Z23 [facility] [id number] [place] [address] 15863- 6442 Jan, [facility] [address] 92760- 9333 15 Jan, 2017 Anxiety F41.9 and Chronic pain G89.29 [facility] [id number] [place] [address] 97312- 4901 Dec, Anxiety F41.9 and Chronic pain G89.29 [facility] [id number] [place] [address] 93318- 6715 Nov, Chronic pain G89.29 [facility] [address] 94522- 6502 Nov, Anxiety F41.9 [facility] [address] 09469- 5458 Nov, Chronic pain G89.29 ; Essential hypertension I10 and Other emphysema J43.8 [facility] [address] 17556- 0272 Oct, Anxiety F41.9 [facility] [address] 04354- 4041 Oct, [facility] [address] 97975- 4086 Oct, Chronic pain G89.29 [facility] [id number] [place] [address] 01417- 1842 September, Recurrent UTI N39.0 ; Neuropathy G62.9 and Anxiety F41.9 [facility] [id number] [place] [address] 34591- 2621 September, [facility] [id number] [place] [address] 77443- 9642 September, Chronic pain G89.29 [facility] [id number] [place] [address] 93615- 4424 September, [facility] [id number] [place] [address] 59305- 3647 Aug, Post-traumatic stress disorder, chronic F43.12 ; Chronic urinary tract infection N39.0 ; Gastroesophageal reflux disease without esophagitis K21.9 ; Chronic pain G89.29 ; Essential hypertension I10 and Tobacco abuse Z72.0 [facility] [id number] [place] [address] 04229 -1305 Aug, [facility] [address], [place] [address]- 3748 Aug, Chronic pain G89.29 [facility] [address], [place] [address]- 6926 Aug, Insomnia, unspecified type G47.00 [facility] [address], [place] [address]- 1606 Aug, [facility] [address], [place] [address]- 9320 24 Jul, 2016 Chronic pain G89.29 [facility] [address], [place] [address]- 3008 Jul, [facility] [address], [place] [address]- 9952 Jul, [facility] [address], [place] [address]- 2216 Jul, [facility] [address], [place] [address]- 9531 15 Jul, 2016 Recurrent UTI (urinary tract infection) N39.0 [facility] [address], [place] [address]- 9154 Jul, [facility] [address], [place] [address]- 1727 Jun, Chronic pain G89.29 [facility] [address], [place] [address]- 1094 17 Jun, 2016 [facility] [address], [place] [address]- 5700 Jun, [facility] [address], [place] [address]- 1128 May, Chronic pain G89.29 [facility] [address], [place] [address]- 3989 May, Weight loss R63.4 and Shortness of breath R06.02 [facility] [id number] [place] [address] 56496- 3920 May, Chronic pain G89.29 ; Weight loss R63.4 and Tobacco abuse Z72.0 [facility] [id number] [place] [address] 51022- 5115 May, [facility] [address] 38753- 5934 May, Hypoxia R09.02 [facility] [id number] [place] [address] 32950- 7452 May, [facility] [id number] [place] [address] 14449- 1169 May, Pulmonary emphysema, unspecified emphysema type J43.9 [facility] [id number] [place] [address] 34070 -1444 May, [facility] [id number] [place] [address] 09761- 5656 May, [facility] [id number] [place] [address] 63538- 5061 May, [facility] [id number] [place] [address] 28148- 4669 May, Chronic pain G89.29 ; Encounter for immunization Z23 ; Right anterior knee pain M25.561 and Cough R05 [facility] [id number] [place] [address] 11979- 0230 Apr, Chronic pain G89.29 [facility] [id number] [place] [address] 20156- 9778 Apr, [facility] [id number] [place] [address] 06259- 9130 Apr, Generalized anxiety disorder F41.1 and Depression, unspecified depression type F32.9 [facility] [id number], [place] [address]- 1710 Apr, Chronic pain G89.29 ; Hypokalemia E87.6 and Insomnia, unspecified type G47.00 [facility] [address] [place] [address], [place] [address]- 5909 Apr, [facility] [id number] [place] [address] 42225- 7514 Apr, Chronic pain G89.29 [facility] [id number] [place] [address], [place] [address]- 9768 Apr, [facility] [id number] [place] [address] 72430- 1372 Mar, [facility] [id number] [place] [address] 70976- 1044 Mar, Insomnia, unspecified type G47.00 [facility] [id number] [place] [address] 85578- 5925 Mar, Chronic pain G89.29 [facility] [id number], [place] [address]- 0517 Mar, [facility] [address] [place] [address] 12687- 9302 Feb, [facility] [address], [place] [address]- 3774 Feb, [facility] [address], [place] [address]- 6224 Feb, [facility] [id number], [place] [address]- 4108 Feb, [facility] [id number] [place] [address] 49308- 6594 Feb, [facility] [id number], [place] [address]- 5283 Jan, [facility] [id number] [place] [address] 21834- 0304 26 Jan, 2016 [facility] [address] [place] [address] 12501- 8049 20 Jan, 2016 [facility] [id number] [place] [address] 63168- 4282 13 Jan, 2016 [facility] [id number] [place] [address] 76813- 0363 12 Jan, 2016 [facility] [id number] [place] [address] 43906- 3507 07 Jan, 2016 Chronic pain G89.29 [facility] [id number] [place] [address] 78420- 3635 Jan, Chronic pain G89.29 and Fibromyalgia M79.7 [facility] [id number] [place] [address] 81015- 2533 Dec, Depression, unspecified depression type F32.9 and Generalized anxiety disorder 300.02 [facility] [id number] [place] [address] 44159- 8076 Dec, Dysthymia F34.1 ; Insomnia, unspecified type G47.00 and Chronic pain G89.29 [facility] [address] [place] [address] 77211- 5134 Dec, Chronic pain G89.29 [facility] [id number] [place] [address] 20763- 8743 Dec, Insomnia, unspecified type G47.00 [facility] [id number] [place] [address] 51512- 1496 Dec, Fibromyalgia M79.7 and Chronic pain G89.29 [facility] [id number] [place] [address] 90028- 7856 Dec, [facility] [id number] [place] [address] 04297- 2520 Dec, [facility] [id number], [place] [address]- 1866 Dec, [facility] [id number] [place] [address] 94674- 3897 Dec, [facility] [id number] [place] [address] 34788- 3509 Dec, Chronic pain G89.29 [facility] [id number] [place] [address] 99445- 2335 Dec, [facility] [id number] [place] [address] 66573- 0196 Dec, [facility] [id number] [place] [address] 69457- 7714 Dec, [facility] [id number] [place] [address] 18635- 1667 Dec, Chronic pain G89.29 and Dysthymia F34.1 [facility] [id number] [place] [address] 70741- 3178 Nov, [facility] [id number] [place] [address] 36654- 2572 Nov, Hypokalemia E87.6 and Chronic pain G89.29 [facility] [id number] [place] [address] 59171- 0014 Nov, Back pain M54.9 and Pain in right knee M25.561 [facility] [id number] [place] [address] 34213- 2692 Nov, [facility] [id number] [place] [address] 40323- 2786 Nov, Chronic pain G89.29 [facility] [id number] [place] [address] 54045- 8104 Nov, Chronic pain G89.29 ; Weight loss R63.4 ; Bone pain M89.8X9 and Insomnia, unspecified type G47.00 [facility] [id number], [place] [address]- 2031 Nov, Chronic pain G89.29 [facility] [address] [facility] [id number] [address] 2546 Nov, Chronic pain G89.29 [facility] [address], [place] [address] 2546 30 Oct, 2015 Chronic pain G89.29 [facility] [address] [facility] [id number] [place] [address] 45439- 2210 Oct, UTI symptoms R39.9 [facility] [id number] [place] [address] 32264 2546 Oct, Chronic pain G89.29 [facility] [id number] [place] [address] 05026 2546 Oct, Chronic pain G89.29 [facility] [id number] [place] [address] 38990 2546 Oct, Chronic pain G89.29 [facility] [address], [place] [address]- 7585 Oct, Right upper quadrant abdominal pain R10.11 [facility] [address], [place] [address] 2542 Oct, Chronic pain G89.29 [facility] [address], [place] [address] 2546 Oct, [facility] [address], [place] [address] 2545 September, Chronic pain G89.29 [facility] [address], [place] [address] 2543 September, Dysuria R30.0 and Urinary tract infection without hematuria , site unspecified N39.0 [facility] [address], [place] [address]- 6546 September, [facility] [id number] [place] [address] 08693- 6270 September, Dysuria R30.0 [facility] [id number] [place] [address] 79690- 2764 September, Chronic pain G89.29 [facility] [id number] [place] [address] 89518- 7819 September, Chronic pain G89.29 and Essential hypertension I10 [facility] [id number] [place] [address] 16729- 6325 September, [facility] [id number] [place] [address] 82846- 4627 September, [facility] [id number] [place] [address] 84602- 8431 September, [facility] [id number] [place] [address] 94327- 1241 Aug, UTI symptoms R39.9 [facility] [id number] [place] [address] 02204- 7163 Aug, Dysuria R30.0 [facility] [id number] [place] [address] 93763- 6549 Aug, [facility] [id number] [place] [address] [phone]- 8026 Aug, [facility] [id number] [place] [address] 23940- 5915 Aug, [facility] [id number] [place] [address] 94699- 0093 Aug, Chronic pain G89.29 [facility] [id number] [place] [address] 05155- 3537 Aug, Dysthymia F34.1 [facility] [id number] [place] [address] 79633- 7434 Aug, Conjunctivitis, unspecified conjunctivitis type, unspecified laterality H10.9 [facility] [address] [facility] [id number] [place] [address] 31 Jul, 2015 Chronic pain G89.29 ; Back pain M54.9 ; Tobacco abuse Z72.0 and Weight decrease R63.4 [facility] [address] [facility] [id number] [place] [address] 2546 30 Jul, 2015 [facility] [id number] [place] [address], [place] [address] 2546 30 Jul, 2015 [facility] [address] [facility] [id number] [place] [address] 2544 24 Jul, 2015 Chronic pain G89.29 [facility] [id number] [address] 2546 22 Jul, 2015 [facility] [id number] [address] 2546 21 Jul, 2015 [facility] [id number] [address] 2548 18 Jul, 2015 [facility] [id number] [address] 17 Jul, 2015 [facility] [id number] [address] 7604 17 Jul, 2015 Chronic pain G89.29 [facility] [id number] [address] 2546 16 Jul, 2015 Chronic pain G89.29 [facility] [id number] [address] 2540 15 Jul, 2015 [facility] [id number] [address] 2548 10 Jul, 2015 [facility] [id number] [address] 2546 07 Jul, 2015 [facility] [id number] [address] 2546 Jul, [facility] [id number] [place] [address] 94387- 4864 Jun, [facility] [address] 8[address]12- 4084 Jun, Depression, unspecified depression type F32.9 [facility] [id number] [place] [address] 24713- 5964 Jun, Pain in right knee M25.561 [facility] [address] 89834- 4802 Jun, Chronic pain G89.29 ; Back pain M54.9 ; Bone pain M89.8X9 and Weight loss R63.4 [facility] [address] 13052- 7393 Jun, [facility] [address] [address] [address] May, [place] [address] [address]- [address] May, UTI symptoms R39.9 ; Pain in right knee M25.561 ; Right low back pain, with sciatica presence unspecified M54.5 ; Right foot pain M79.671 ; Hypokalemia E87.6 and Screening, lipid Z13.220 [place] [address] [place] [id number] [place] [address]62- 4980 May, [place] [address] [id number] [place] [address] 95949- 1417 May, [place] [address] [id number] [place] [address] 38241- 9872 Mar, [place] [address] [address]- 6800 Mar, [place] [address] [place] [id number] [place] [address] 59070- 5567 Mar, Hypokalemia E87.6 [place] [address] [id number], [place] [address] 0391 Mar, Pain in right leg M79.604 ; Encounter for immunization Z23 ; Pain in right knee M25.561 and Hypokalemia E87.6 [facility] [address] [id number], [place] [address] 3056 Jan, [facility] [id number] [place] [address]17 2546 Jan, [facility] [id number] [place] [address] 56880 2549 Jan, Abdominal pain, generalized 789.07 [facility] [id number] [place] [address] 65084- 2573 Jan, Abdominal pain, generalized 789.07 [facility] [id number] [place] [address] 03683- 9309 Dec, [facility] [id number] [place] [address] 72467- 4316 Dec, [facility] [id number] [place] [address] 10485- 5673 Dec, [facility] [id number] [place] [address] 01735- 8435 Nov, Hallux valgus 735.0 and Hammertoe 735.4 [facility] [address], [place] [address]- 1753 Nov, [facility] [address], [place] [address] 2541 Nov, Hallux valgus 735.0 and Hammer toe 735.4 [facility] [address], [place] [address]- 254 Oct, [facility] [address], [place] [address]- 4842 Oct, [facility] [address], [place] [address]- 7094 Oct, Pre-op evaluation V72.84 [facility] [id number] [place] [address] 58614- 8617 Oct, [facility] [address], [place] [address]- 1286 Oct, [facility] [id number] [place] [address] 38443- 9611 September, [facility] [id number] [place] [address] 78460- 8159 September, [facility] [id number] [place] [address] 02798- 6976 September, Hallux valgus (acquired) 735.0 and Other hammer toe ( acquired) 735.4 [facility] [id number] [place] [address] 45055- 9280 Aug, [facility] [address], [place] [address]- 1505 Aug, [facility] [id number] [place] [address] 41299- 6353 Jul, [facility] [address], [place] [address]- 7980 Jul, [facility] [address], [place] [address]- 2666 Jul, [facility] [address], [place] [address]- 4080 Jul, [facility] [id number] [place] [address] 52909- 9707 Jul, [facility] [address], [place] [address]- 2546 Jul, [facility] [address], [place] [address]- 0515 Jul, [facility] [place] [facility] [address] [id number] [place] [address]- 6765 Jul, [facility] [place] [facility] [address] [id number] [place] [address]- 6556 Jun, [facility] [place] [facility] [address] [id number] [place] [address]- 9260 Jun, [facility] [place] [facility] [address] [id number] [place] [address]- 8390 Jun, [facility] [place] [facility] [address] [id number] [place] [address]- 6042 Jun, [facility] [place] [facility] [address] [id number] [place] [address]- 1959 Jun, [facility] [place] [facility] [address] [id number] [place] [address]- 4143 Jun, [facility] [place] [facility] [address] [id number] [place] [address]- 5920 Jun, [facility] [place] [facility] [address] [id number] [place] [address]- 1179 Jun, [facility] [place] [facility] [address] [facility] [id number] [place] [address]- 7503 Jun, [facility] [place] [facility] [address] [id number] [place] [address]- 2180 Jun, [facility] [place] [facility] [address] [id number] [place] [address]- 9500 May, [facility] [place] [facility] [address] [id number] [place] [address]- 7443 May, [facility] [place] [facility] [address] [facility] [id number] [place] [address]- 1033 May, [facility] [place] [facility] [address] [facility] [id number] [place] [address]- 1364 May, [facility] [place] [facility] [address] [id number] [place] [address]- 4682 May, [facility] [address] [id number] [place] [address]- 2343 May, [facility] [address] [id number] [place] [address]- 0867 May, [facility] [address] [id number] [place] [address]- 6273 May, [facility] [address] [id number] [place] [address]- 3722 May, [facility] [address] [id number] [place] [address]- 6140 May, [facility] [address] [id number] [place] [address]- 4851 May, [facility] [address] [id number] [place] [address]- 1726 May, [facility] [address] [id number] [place] [address]- 0695 May, [facility] [address] [id number] [place] [address]- 2052 May, [facility] [address] [id number] [place] [address]- 7387 May, [facility] [address] [id number] [place] [address]- 6250 May, [facility] [address] [id number] [place] [address]- 6455 May, [facility] [place] [facility] [address] [id number] [place] [address]- 9343 May, [facility] [address] [id number] [place] [address]- 1872 Apr, [facility] [address] [id number] [place] [address]- 9478 Apr, [facility] [place] [facility] [address] [id number] [place] 1881 Apr, [facility] [place] [facility] [address] [id number] [place] 6344 Apr, [facility] [place] [facility] [address] [id number] [place] 9167 Apr, [facility] [place] [facility] [address] [id number] [place] [address]- 4308 Apr, [facility] [place] [facility] [address] [id number] [place] 7112 Apr, [facility] [place] [facility] [address] [id number] [place] [address]- 2965 Apr, [facility] [place] [facility] [address] [id number] [place] [address]- 0462 Apr, [facility] [place] [facility] [address] [id number] [place] [address]- 5327 Mar, [facility] [place] [facility] [address] [id number] [place] [address]- 0785 Mar, [facility] [place] [facility] [address] [id number] [place] [address]- 6182 Mar, [facility] [place] [facility] [address] [id number] [place] [address]- 3957 Mar, [facility] [place] [facility] [address] [id number], [place] [address]- 0689 Mar, [facility] [place] [facility] [address] [id number] [place] [address]- 8515 Feb, [facility] [place] [facility] [address] [id number] [place] [address]- 9923 Feb, [facility] [place] [facility] [address] [id number] [place] 3991 Feb, [facility] [place] [facility] [address] [id number], [place] [address]- 1567 Feb, 2013 [facility] [place] [facility] [address] [id number] [place] [address]- 2363 16 Feb, 2013 [facility] [place] [facility] [address] [id number] [place] [address]- 4281 16 Feb, 2013 [facility] [place] [facility] [address] [id number] [place] [address]- 2372 Feb, 2013 [facility] [place] [facility] [address] [id number] [place] [address]- 2228 Feb, 2013 [facility] [place] [facility] [address] [id number] [place] [address]- 5869 Feb, 2013 [facility] [place] [facility] [address] [id number] [place] [address]- 5143 Feb, 2013 [facility] [place] [facility] [address] [id number] [place] [address]- 5086 Feb, 2013 [facility] [place] [facility] [address] [id number], [place] [address]- 9180 Feb, 2013 [facility] [place] [facility] [address] [id number] [place] [address]- 8236 Feb, 2013 [facility] [place] [facility] [address] [id number], [place] [address]- 6609 Feb, 2013 [facility] [place] [facility] [address] [id number], [place] [address]- 6129 Feb, 2013 [facility] [place] [facility] [address] [id number], [place] [address]- 7041 Feb, 2013 [facility] [place] [facility] [address] [id number], [place] [address]- 1646 Jan, 2013 [facility] [place] [facility] [address] [id number], [place] [address]- 6783 23 Jan, 2013 [facility] [place] [facility] [address] [id number], [place] [address]- 4870 20 Jan, 2013 [facility] [place] [facility] [address] [id number] [place] [address]- 5781 19 Jan, 2013 [facility] [place] [facility] [address] [id number] [place] [address]- 8876 Jan, 2013 [facility] [place] [facility] [address] [id number] [place] [address]- 6576 Jan, 2013 [facility] [place] [facility] [address] [id number] [place] [address]- 1416 Jan, [facility] [place] [facility] [address] [id number] [place] [address]- 7344 Jan, [facility] [place] [facility] [address] [id number] [place] [address]- 2188 Dec, [facility] [place] [facility] [address] [id number] [place] [address]- 6251 Dec, [facility] [place] [facility] [address] [id number] [place] [address]- 8961 Nov, [facility] [place] [facility] [address] [id number] [place] [address]- 4705 Nov, [facility] [place] [facility] [address] [id number] [place] [address]- 3768 Nov, [facility] [place] [facility] [address] [id number] [place] [address]- 3856 Nov, [facility] [place] [facility] [address] [id number] [place] [address]- 4494 Nov, [facility] [place] [facility] [address] [id number] [place] [address]- 5575 Nov, [facility] [place] [facility] [address] [id number] [place] [address]- 7866 Nov, [facility] [place] [facility] [address] [id number] [place] [address]- 9501 Nov, [facility] [place] [facility] [address] [id number] [place] [address]- 7291 Nov, [facility] [place] [facility] [address] [id number] [place] 5187 Oct, [facility] [place] [facility] [address] [id number] [place] [address]- 1864 Oct, [facility] [place] [facility] [address] [id number] [place] [address]- 3753 Oct, [facility] [place] [facility] [address] [id number] [place] [address]- 8561 Oct, [facility] [place] [facility] [address] [id number] [place] [address]- 4016 Oct, [facility] [place] [facility] [address] [id number] [place] [address]- 5059 Oct, [facility] [place] [facility] [address] [id number] [place] [address]- 8589 September, [facility] [place] [facility] [address] [id number] [place] [address]- 7212 September, [facility] [place] [facility] [address] [id number] [place] [address]- 0028 September, [facility] [place] [facility] [address] [id number] [place] [address]- 4504 September, [facility] [place] [facility] [address] [id number] [place] [address]- 2069 September, [facility] [place] [facility] [address] [id number] [place] [address]- 5885 September, [facility] [place] [facility] [address] [id number] [place] [address]- 3915 September, [facility] [place] [facility] [address] [id number] [place] [address]- 1166 September, [facility] [place] [facility] [address] [id number] [place] [address]- 7207 September, [facility] [place] [facility] [address] [id number] [place] [address]- 6269 September, [facility] [address] [id number] [place] [address]- 7522 September, [facility] [place] [facility] [address] [id number] [place] [address]- 9847 September, [facility] [address] [id number] [place] [address]- 0126 September, [facility] [place] [facility] [address] [id number] [place] [address]- 2498 September, [facility] [place] [facility] [address] [id number] [place] [address]- 1993 September, [facility] [place] [facility] [address] [id number] [place] [address]- 0265 September, [facility] [address] [id number] [place] [address]- 3063 September, [facility] [address] [id number] [place] [address]- 4256 September, [facility] [place] [facility] [address] [id number] [place] [address]- 9483 September, [facility] [address] [id number] [place] [address]- 0032 September, [facility] [place] [facility] [address] [id number] [place] [address]- 6998 Aug, [facility] [place] [facility] [address] [id number] [place] [address]- 3834 Aug, [facility] [place] [facility] [address] [id number] [place] [address]- 7907 Aug, [facility] [place] [facility] [address] [id number] [place] [address]- 0257 Aug, [facility] [place] [facility] [address] [id number] [place] [address]- 4565 Aug, [facility] [place] [facility] [address] [id number] [place] [address]- 1517 18 Aug, 2013 [facility] [place] [facility] [address] [id number] [place] [address]- 5823 16 Aug, 2013 [facility] [place] [facility] [address] [id number] [place] [address]- 2765 16 Aug, 2013 [facility] [place] [facility] [address] [id number] [place] [address]- 6345 15 Aug, 2013 [facility] [place] [facility] [address] [id number] [place] [address]- 2477 15 Aug, 2013 [facility] [place] [facility] [address] [id number] [place] [address]- 9711 14 Aug, 2013 [facility] [place] [facility] [address] [id number] [place] [address]- 7889 Aug, [facility] [place] [facility] [address] [id number] [place] [address]- 6306 Aug, [facility] [place] [facility] [address] [id number] [place] [address]- 3407 Aug, [facility] [place] [facility] [address] [id number] [place] [address]- 4745 Aug, [facility] [place] [facility] [address] [id number] [place] [address]- 9780 Jul, [facility] [place] [facility] [address] [id number] [place] [address]- 1035 31 Jul, 2013 [facility] [place] [facility] [address] [id number] [place] [address]- 8052 Jul, [facility] [place] [facility] [address] [id number] [place] [address]- 9096 27 Jul, 2013 [facility] [place] [facility] [address] [id number] [place] [address]- 2163 20 Jul, 2013 [facility] [place] [facility] [address] [id number], [place] [address]- 9043 Jul, [facility] [place] [facility] [address] [id number] [place] [address]- 4283 Jul, [facility] [place] [facility] [address] [id number] [place] [address]- 5841 Jul, [facility] [place] [facility] [address] [id number] [place] [address]- 8037 Jul, [facility] [place] [facility] [address] [id number] [place] [address]- 1932 Jul, [facility] [place] [facility] [address] [id number] [place] [address]- 6753 Jul, [facility] [place] [facility] [address] [id number] [place] [address]- 7592 Jul, [facility] [place] [facility] [address] [facility] [id number] [place] [address]- 0722 Jul, [facility] [place] [facility] [address] [id number] [place] [address]- 9423 Jul, [facility] [place] [facility] [address] [id number] [place] [address]- 8157 Jul, [facility] [place] [facility] [address] [facility] [id number] [place] [address]- 7543 Jun, [facility] [place] [facility] [address] [id number] [place] [address]- 7673 Jun, [facility] [place] [facility] [address] [id number], [place] [address]- 9485 Jun, [facility] [place] [facility] [address] [id number] [place] [address]- 1890 Jun, [facility] [place] [facility] [address] [id number] [place] [address]- 8727 Jun, [facility] [place] [facility] [address] [facility] [id number], [place] [address]- 2628 Jun, [facility] [place] [facility] [address] [id number] [place] [address]- 7444 May, [facility] [place] [facility] [address] [id number] [place] [address]- 8078 May, [facility] [place] [facility] [address] [id number] [place] [address]- 8104 May, [facility] [place] [facility] [address] [id number] [place] [address]- 6941 May, [facility] [place] [facility] [address] [id number] [place] [address]- 4759 May, [facility] [place] [facility] [address] [id number] [place] [address]- 6568 May, [facility] [place] [facility] [address] [id number] [place] [address]- 3060 May, [facility] [place] [facility] [address] [id number] [place] [address] May, [facility] [place] [facility] [address] [id number] [place] [address] May, [facility] [place] [facility] [address] [id number] [place] [address] May, [facility] [place] [facility] [address] [id number] [place] [address] May, [facility] [place] [facility] [address] [id number] [place] [address] May, [facility] [place] [facility] [address] [id number] [place] [address] May, [facility] [place] [facility] [address] [id number] [place] [address] May, [facility] [place] [facility] [address] [id number] [place] [address] May, [facility] [place] [facility] [address] [id number], [place] [address] Apr, [facility] [place] [facility] [address] [id number] [place] [address]- [address] Apr, [facility] [place] [facility] [address] [id number] [place] [address]- 67[address] Apr, [facility] [place] [facility] [address] [id number] [place] [address] Apr, [facility] [place] [facility] [address] [id number] [place] [address] Apr, [facility] [place] [facility] [address] [id number] [place] [address]- [address]66 Apr, [facility] [place] [facility] [address] [id number] [place] [address]- [address] Apr, [facility] [place] [facility] [address] [id number] [place] [address]- [address] Apr, [facility] [place] [facility] [address] [id number] [place] [address]- 8848 Apr, [facility] [place] [facility] [address] [id number] [place] [address]- 1680 Apr, [facility] [place] [facility] [address] [id number] [place] [address]- [address] Mar, [facility] [place] [facility] [address] [id number], [place] [address] Mar, [facility] [place] [facility] [address] [id number], [place] [address]- [address] Mar, [facility] [place] [facility] [address] [id number] [place] [address] Mar, [facility] [place] [facility] [address] [id number] [place] [address]- 7[address] Mar, [facility] [place] [facility] [address] [id number], [place] [address]- [address] Mar, [facility] [place] [facility] [address] [id number] [place] [address]- 1782 Mar, [facility] [address] [id number] [place] [address] Mar, [facility] [address] [id number] [place] [address]- 2071 Mar, [facility] [address] [id number] [place] [address]- [address]90 Mar, [facility] [address] [id number] [place] [address]- [address]111 Mar, [facility] [address] [id number] [place] [address]- 5976 Mar, [facility] [address] [id number] [place] [address] 8004 Mar, [facility] [address] [id number] [place] [address]056 Mar, [facility] [address] [id number] [place] [address]- 2094 Mar, [facility] [address] [id number] [place] [address]- [address] Mar, [facility] [address] [id number] [place] [address] 3933 Mar, [facility] [address] [id number] [place] [address]- [address] 14 Mar, 2013 [facility] [address] [id number] [place] [address] Mar, [facility] [place] [facility] [address] [id number] [place] [address] 2531 Mar, [facility] [place] [facility] [address] [id number] [place] [address]- [address]855 Mar, [facility] [address] [id number] [place] [address]- 135[address] Mar, [facility] [place] [facility] [address] [id number] [place] [address]- 3005 Mar, [facility] [place] [facility] [address] [id number] [place] [address]- 1616 Feb, [facility] [place] [facility] [address] [id number] [place] [address] 3788 Feb, [facility] [place] [facility] [address] [id number] [place] [address]- 6[address] Feb, [facility] [place] [facility] [address] [id number] [place] [address]- 6723 Feb, [facility] [place] [facility] [address] [id number] [place] [address]- 6170 15 Feb, 2013 [facility] [place] [facility] [address] [id number] [place] [address]- 5[address] Feb, [facility] [place] [facility] [address] [id number], [place] [address]- [address] Feb, [facility] [place] [facility] [address] [id number] [place] [address]- 8745 Feb, [facility] [place] [facility] [address] [id number], [place] [address]- [address]853 Feb, [facility] [place] [facility] [address] [id number], [place] [address]- 9140 Feb, [facility] [place] [facility] [address] [id number], [place] [address]- [address] 30 Jan, 2013 [facility] [place] [facility] [address] [id number] [place] [address]- 1722 26 Jan, 2012 [facility] [place] [facility] [address] [id number], [place] [address] 24 Jan, 2013 [facility] [place] [facility] [address] [id number], [place] [address]- [address] 23 Jan, 2012 [facility] [place] [facility] [address] [id number], [place] [address]- [address] Jan, [facility] [address] [id number] [place] [address]- 0898 Dec, [facility] [place] [facility] [address] [id number] [place] [address]- 5208 Dec, [facility] [place] [facility] [address] [id number] [place] [address]- 3488 Dec, [facility] [place] [facility] [address] [id number] [place] [address]- 8617 Dec, [facility] [place] [facility] [address] [id number] [place] [address]- 7931 Dec, [facility] [place] [facility] [address] [id number] [place] [address]- 2616 Dec, [facility] [place] [facility] [address] [id number] [place] [address]- 7448 Dec, [facility] [place] [facility] [address] [id number] [place] [address]- 2603 Nov, [facility] [place] [facility] [address] [id number] [place] [address]- 0984 Nov, [facility] [place] [facility] [address] [id number] [place] [address] Nov, [facility] [place] [facility] [address] [id number] [place] [address] 4[address] Nov, [facility] [place] [facility] [address] [id number] [place] [address]097 Nov, [facility] [place] [facility] [address] [id number] [place] [address] 4[address] Oct, [facility] [place] [facility] [address] [id number] [place] [address] 6292 Oct, [facility] [place] [facility] [address] [id number] [place] [address] 2525 Oct, [facility] [place] [facility] [address] [id number] [place] [address] 1145 September, [facility] [address] [id number] [place] [address] September, [facility] [address] [id number] [place] [address] 90[address] September, [facility] [address] [id number] [place] [address] 5286 September, [facility] [address] [id number] [place] [address] 7[address] September, [facility] [address] [id number] [place] [address] 5440 September, [facility] [address] [id number] [place] [address]- 0686 September, [facility] [address] [id number] [place] [address]- 8112 30 Aug, 2012 [facility] [address] [id number] [place] [address]- 2684 Aug, [facility] [address] [id number] [place] [address]- 6162 Aug, [facility] [address] [id number] [place] [address]- 5305 29 Jul, 2012 [facility] [address] [id number] [place] [address]- 5805 27 Jul, 2012 [facility] [address] [id number] [place] [address] 3620 Jul, [facility] [place] [facility] [address] [id number] [place] [address]- 4779 20 Jul, 2012 [facility] [place] [facility] [address] [id number] [place] [address]- 6926 18 Jul, 2012 [facility] [place] [facility] [address] [id number] [place] [address]- 6948 Jul, [facility] [address] [id number] [place] [address]- 2706 Jul, [facility] [address] [id number] [place] [address]- 8116 Jun, [facility] [address] [facility] [id number] [place] [address]- 6306 Jun, [facility] [place] [facility] [address] [id number] [place] [address]- 3707 Jun, [facility] [address] [id number] [place] [address]- 0109 Jun, [facility] [address] [facility] [id number] [place] [address]- 8208 Jun, [facility] [address] [facility] [id number] [place] [address]- 2656 Jun, [facility] [place] [facility] [address] [id number] [place] [address]- 4998 Jun, [facility] [address] [facility] [id number] [place] [address]- 6237 Jun, [facility] [place] [facility] [address] [facility] [id number] [place] [address]- 8800 Jun, [facility] [place] [facility] [address] [facility] [id number] [place] [address]- 9859 Jun, [facility] [place] [facility] [address] [facility] [id number] [place] [address]- 6685 May, [facility] [place] [facility] [address] [id number] [place] [address]- 2497 May, [facility] [place] [facility] [address] [facility] [id number] [place] [address]- 2133 May, [facility] [place] [facility] [address] [facility] [id number] [place] [address]- 0688 May, [facility] [place] [facility] [address] [id number] [place] [address]- 0811 15 May, 2012 [facility] [place] [facility] [address] [id number] [place] [address]- 2636 07 May, 2012 [facility] [place] [facility] [address] [id number] [place] [address]- 0176 31 Apr, 2012 [facility] [place] [facility] [address] [id number] [place] [address]- 2186 31 Apr, 2012 [facility] [place] [facility] [address] [id number] [place] [address]- 3494 Apr, [facility] [place] [facility] [address] [id number] [place] [address]- 3326 Apr, [facility] [place] [facility] [address] [id number] [place] [address]- 4970 Apr, [facility] [place] [facility] [address] [id number] [place] [address]- 3911 Apr, [facility] [place] [facility] [address] [id number] [place] [address]- 2639 Apr, [facility] [place] [facility] [address] [id number] [place] [address]- 5510 29 Mar, 2012 [facility] [place] [facility] [address] [id number] [place] [address]- 7201 29 Mar, 2012 [facility] [place] [facility] [address] [id number] [place] [address]- 7082 27 Mar, 2012 [facility] [place] [facility] [address] [id number] [place] [address] 254 Mar, [facility] [place] [facility] [address] [id number] [place] [address] 2546 Mar, [facility] [place] [facility] [address] [id number] [place] [address]- 2540 18 Mar, 2012 [facility] [place] [facility] [address] [id number] [place] [address]- 0931 Mar, [facility] [place] [facility] [address] [id number] [place] [address]- 4494 Mar, [facility] [place] [facility] [address] [id number] [place] [address]- 8396 Mar, [facility] [place] [facility] [address] [facility] [id number] [place] [address]- 5928 Mar, [facility] [place] [facility] [address] [id number] [place] [address]- 3526 Mar, [facility] [place] [facility] [address] [id number] [place] [address]- 6100 Mar, [facility] [place] [facility] [address] [id number], [place] [address]- 3647 Mar, [facility] [place] [facility] [address] [facility] [id number], [place] [address]- 5741 Mar, [facility] [place] [facility] [address] [id number], [place] [address]- 6016 Mar, [facility] [place] [facility] [address] [id number], [place] [address]- 2033 Mar, [facility] [place] [facility] [address] [facility] [id number], [place] [address]- 8067 Mar, [facility] [place] [facility] [address] [id number], [place] [address]- 1035 Feb, [facility] [place] [facility] [address] [id number], [place] [address]- 8465 Feb, [facility] [place] [facility] [address] [id number], [place] [address]- 1334 Feb, [facility] [place] [facility] [address] [facility] [id number], [place] [address]- 2381 Feb, [facility] [place] [facility] [address] [facility] [id number], [place] [address]- 1998 Feb, [facility] [place] [facility] [address] [id number] [place] [address]- 8583 16 Feb, 2012 [facility] [place] [facility] [address] [id number] [place] [address]- 8861 Feb, [facility] [place] [facility] [address] [id number] [place] [address]- 2486 11 Feb, 2012 [facility] [place] [facility] [address] [id number] [place] [address]- 1243 05 Feb, 2012 [facility] [place] [facility] [address] [id number] [place] [address]- 0560 04 Feb, 2012 [facility] [place] [facility] [address] [id number] [place] [address]- 8709 02 Feb, 2012 [facility] [place] [facility] [address] [id number] [place] [address]- 6962 27 Jan, 2012 [facility] [place] [facility] [address] [id number] [place] [address]- 7383 25 Jan, 2012 [facility] [place] [facility] [address] [id number] [place] [address]- 1790 13 Jan, 2012 [facility] [place] [facility] [address] [id number] [place] [address]- 5318 12 Jan, 2012 [facility] [place] [facility] [address] [id number] [place] [address]- 4195 07 Jan, 2012 [facility] [place] [facility] [address] [id number] [place] [address]- 5428 31 Dec, 2011 [facility] [place] [facility] [address] [id number] [place] [address]- 3120 24 Dec, 2011 [facility] [place] [facility] [address] [id number] [place] [address]- 4655 Dec, [facility] [place] [facility] [address] [id number] [place] [address]- 2277 18 Dec, 2011 [facility] [place] [facility] [address] [id number] [place] [address]- 6985 Dec, [facility] [place] [facility] [address] [id number] [place] [address]- 3190 Dec, [facility] [place] [facility] [address] [id number] [place] [address]- 2234 Dec, [facility] [place] [facility] [address] [id number] [place] [address]- 2546 Dec, [facility] [place] [facility] [address] [id number] [place] [address]- 8011 Nov, [facility] [address] [id number] [place] [address]- 6574 Nov, [facility] [place] [facility] [address] [id number] [place] [address]- 5215 Nov, [facility] [address] [id number] [place] [address]- 7379 Nov, [facility] [address] [id number] [place] [address]- 6386 Nov, [facility] [address] [id number] [place] [address]- 6064 Oct, [facility] [place] [facility] [address] [id number] [place] [address]- 3068 Oct, [facility] [place] [facility] [address] [id number] [place] [address]- 5578 September, [facility] [place] [facility] [address] [id number] [place] [address]- 6394 September, [facility] [place] [facility] [address] [id number] [place] [address]- 4117 September, [facility] [place] [facility] [address] [id number] [place] [address]- 2406 September, [facility] [place] [facility] [address] [id number] [place] [address]- 2546 September, [facility] [place] [facility] [address] [id number] [place] [address]- 9403 September, [facility] [address] [id number] [place] [address]- 6727 September, [facility] [place] [facility] [address] [id number] [place] [address]- 0982 September, [facility] [address] [id number] [place] [address]- 4501 September, [facility] [place] [facility] [address] [id number] [place] [address]- 7404 September, [facility] [address] [id number] [place] [address]- 9409 September, [facility] [place] [facility] [address] [id number] [place] [address]- 1527 September, [facility] [address] [id number] [place] [address]- 7058 September, [facility] [place] [facility] [address] [id number] [place] [address]- 4420 September, [facility] [address] [id number] [place] [address]- 2235 24 Aug, 2011 [facility] [place] [facility] [address] [id number] [place] [address]- 8667 Aug, [facility] [place] [facility] [address] [id number] [place] [address]- 3684 Aug, [facility] [place] [facility] [address] [id number] [place] [address]- 0050 Aug, [facility] [place] [facility] [address] [id number] [place] [address]- 2644 Jul, [facility] [place] [facility] [address] [id number] [place] [address]- 7940 Jul, [facility] [place] [facility] [address] [id number] [place] [address]- 0379 Jul, [facility] [place] [facility] [address] [id number] [place] [address]- 2204 28 Jun, 2011 [facility] [address] [id number] [place] [id number] 26 Jun, 2011 [facility] [address] [facility] [id number] [place] [address]- 2546 13 Jun, 2011 [facility] [address] [id number] [place] [address]- 6316 10 Jun, 2011 [facility] [address] [id number] [place] [address] 2541 07 Jun, 2011 [facility] [address] [id number] [place] [address]- 5606 07 Jun, 2011 [facility] [address] [id number] [address]- 2545 03 Jun, 2011 [facility] [address] [id number] [address]- 8469 02 Jun, 2011 [facility] [address] [id number] [place] [address]- 4651 May, [facility] [address] [id number] [address]- 1658 May, [facility] [address] [id number] [address]- 0656 May, [facility] [address] [id number] [address]- 2580 May, [facility] [address] [id number] [place] [address]- 254 May, [facility] [place] [facility] [address] [facility] [id number] [place] [address]- 2540 May, [facility] [place] [facility] [address] [facility] [id number] [place] [address]- 2541 May, [facility] [address] [id number] [place] [address]- 1193 May, [facility] [place] [facility] [address] [id number] [place] [address]- 2600 May, [facility] [place] [facility] [address] [id number] [place] [address]- 0173 May, [facility] [place] [facility] [address] [id number] [place] [address]- 6990 17 May, 2011 [facility] [place] [facility] [address] [id number] [place] [address]- 4068 13 May, 2011 [facility] [place] [facility] [address] [id number] [place] [address]- 5881 May, [facility] [place] [facility] [address] [id number] [place] [address]- 7528 May, [facility] [place] [facility] [address] [id number] [place] [address]- 5213 Apr, [facility] [place] [facility] [address] [id number] [place] [address]- 6402 Apr, [facility] [place] [facility] [address] [id number] [place] [address]- 4680 Apr, [facility] [place] [facility] [address] [id number], [place] [address]- 6952 Mar, [facility] [place] [facility] [address] [id number], [place] [address]- 0240 Mar, [facility] [place] [facility] [address] [id number], [place] [address]- 8843 Feb, [facility] [place] [facility] [address] [id number] [place] [address]- 1274 Feb, [facility] [place] [facility] [address] [id number], [place] [address]- 4030 Feb, [facility] [place] [facility] [address] [id number], [place] [address]- 1983 Feb, [facility] [place] [facility] [address] [id number] [place] [address]- 7796 13 Feb, 2011 [facility] [place] [facility] [address] [id number] [place] [address]- 5726 28 Apr, 2010 [facility] [place] [facility] [address] [id number] [place] [address] 2546 22 Apr, 2010 [facility] [place] [facility] [address] [id number] [place] [address] 2546 16 Apr, 2010 [facility] [place] [facility] [address] [id number] [place] [address] 2546 15 Apr, 2010 [facility] [place] [facility] [address] [id number] [place] [address] 2546 15 Apr, 2010 [facility] [place] [facility] [address] [id number] [place] [address] 2546 Apr, [facility] [place] [facility] [address] [id number] [place] [address]- 6922 24 Mar, 2010 [facility] [place] [facility] [address] [id number] [place] [address] 254 17 Mar, 2010 [facility] [place] [facility] [address] [id number] [place] [address]- 3216 17 Mar, 2010 [facility] [place] [facility] [address] [id number] [place] [address] 2543 28 Feb, 2010 [facility] [place] [facility] [address] [id number] [place] [address] 2546 22 Feb, 2010 [facility] [place] [facility] [address] [id number] [place] [address] 2543 Feb, [facility] [place] [facility] [address] [id number] [place] [address] 2546 15 Feb, 2010 [facility] [place] [facility] [address] [id number] [place] [address] 2546 18 Dec, 2009 [facility] [place] [facility] [address] [id number] [place] [address] 2542 Dec, [facility] [address] [facility] [id number] [place] [address]- 3763 15 Oct, 2009 [facility] [address] [facility] [id number], [place] [address]- 8815 Mar, [facility] [address] [facility] [id number], [place] [address]- 9763 Mar, [facility] [address] [facility] [id number], [place] [address]- 0621 September, IMMUNIZATIONS No Known Immunizations SOCIAL HISTORY Never Assessed REASON FOR VISIT Pain Medication PLAN OF CARE VITAL SIGNS MEDICATIONS Unknown [...]
--- OUTSIDE RECORDS SUMMARY | 2017-11-27 15:50 | XMS REPORT ---
Author Author VALERIE ZAVALA [facility] Address [address] [place] [address] Care Team Providers Care Aed Trainer Name Role Phone VALERIE ZAVALA Unavailable PROBLEMS Type Condition ICD9-CM Code XPM88-VW Code Onset Dates Condition Status SNOMED Code Problem Generalized anxiety disorder F41.1 Active 49012235 Problem Hypokalemia E87.6 Active 759306831 Problem Right low back pain, with sciatica presence unspecified M54.5 Active 600789469 Problem Post-traumatic stress disorder, chronic F43.12 Active 68220667 Problem Pain in right knee M25.561 Active 72934382 Problem Gastroesophageal reflux disease without esophagitis K21.9 Active 783605120 Problem UTI symptoms R39.9 Active 30112997 Problem Essential hypertension I10 Active 63536131 Problem Anxiety F41.9 Active 47920256 Problem Neuropathy G62.9 Active 023073593 Problem Other chronic pain G89.29 Active 67564411 Problem Generalized abdominal pain R10.84 Active 524478504 Problem Chronic pain G89.29 Active 44708809 Problem Back pain M54.9 Active 262369925 Problem Right foot pain M79.671 Active 12866609 Problem Panic attacks F41.0 Active 476443750 Problem Other emphysema J43.8 Active 01119014 Problem Kidney stones N20.0 Active 39828520 Problem Renal calculus, right N20.0 Active 91869355 Problem Weight decrease R63.4 Active 121202773 Problem Tobacco abuse Z72.0 Active 34911934 Problem Bone pain M89.8X9 Active 73662032 Problem Depression, unspecified depression type F32.9 Active 92793594 Problem Insomnia, unspecified type G47.00 Active 418981157 Problem Pulmonary emphysema, unspecified emphysema type J43.9 Active 04916783 Problem Right upper quadrant abdominal pain R10.11 Active 011487013 Problem Weight loss R63.4 Active 026101841 ALLERGIES No Information ENCOUNTERS Encounter Location Date Diagnosis [facility] [id number] [address] Nov, [facility] [id number] [place] [address] 42667- 2471 Oct, Gross hematuria R31.0 ; Urinary tract infection without hematuria, site unspecified N39.[address] [facility] [id number] [place] [address] 71877- 7982 Oct, [facility] [id number] [place] [address] 27557- 8530 Oct, [facility] [id number] [place] [address] 18972- 1468 Oct, Medicare welcome exam Z00.00 [facility] [id number] [place] [address] 64174- 2847 September, Back pain M54.9 and Right anterior knee pain M25.561 [facility] [id number] [place] [address] 43877- 3395 September, [facility] [id number] [place] [address] 02259- 7534 September, [facility] [id number] [place] [address] 14704- 5944 September, Essential hypertension I10 [facility] [id number] [place] [address] 76188- 1458 September, [facility] [id number] [place] [address] 55728- 6701 September, RLQ abdominal pain R10.31 ; Low back pain M54.5 and Other chronic pain G89.29 [facility] [id number] [place] [address] 97940- 0291 Aug, Medicare welcome exam Z00.00 [facility] [id number] [place] [address] 52518- 4925 Aug, [facility] [id number] [place] [address] 75826- 2698 Aug, Acute pyelonephritis N10 and Medicare welcome exam Z00.00 [facility] [id number] [place] [address] 46673 -3439 Aug, Dysuria R30.0 and Acute pyelonephritis N10 [facility] [id number] [place] [address] 76048- 7333 Aug, [facility] [id number] [place] [address] 32865- [address]24 Aug, [facility] [id number] [place] [address] 60989- 6998 Aug, [facility] [id number] [place] [address] 13939- 4197 Aug, [facility] [id number] [place] [address] 43811- 8514 Jul, [facility] [id number] [place] [address] 08865- 6041 Jul, Renal calculus, right N20.0 and Medicare welcome exam Z00.00 [facility] [id number] [place] [address] 34007 -0732 Jul, Dysuria R30.0 and Renal calculus, right N20.0 [facility] [address] [address] 5555 Jul, Medicare welcome exam Z00.00 [facility] [id number] [place] [address] 63762- 4027 Jun, Gastroesophageal reflux disease without esophagitis K21.9 and Generalized abdominal pain R10.84 [facility] [address] [address] 2003 Jun, Medicare welcome exam Z00.00 [facility] [id number] [place] [address] 64397- 8377 05 Jun, 2017 [facility] [address] 63050- 0573 05 Jun, 2017 Medicare welcome exam Z00.00 and Encounter for screening mammogram for malignant neoplasm of breast Z12.31 [facility] [address] 76040- 6137 02 Jun, 2017 Chronic pain G89.29 [facility] [id number] [place] [address] 27441- 2369 May, [facility] [address] 96167- 4684 May, Pelvic pain R10.2 [facility] [address] 62451- 4849 May, Pelvic pain R10.2 [facility] [id number] [place] [address] 48879 -3922 May, Renal calculus, right N20.0 [facility] [address] 48914- 0525 May, Hematuria, unspecified type R31.9 and Nephrolithiasis N20.0 [facility] [id number] [place] [address] 17047 -1632 May, Dysuria R30.0 and Nephrolithiasis N20.0 [facility] [id number] [place] [address] 18840- 1022 May, [facility] [address] 63018 -9352 May, Abdominal pain R10.9 and Kidney stone N20.0 [facility] [id number] [place] [address] 31154- 2574 May, [facility] [address] 07755- 4060 May, Chronic pain G89.29 and Panic attacks F41.0 [facility] [address] [address] 4345 May, Urinary tract infection without hematuria, site unspecified N39.0 [facility] [address] [address] 3868 Apr, Right lower quadrant abdominal pain R10.31 and Abnormal serum lipase level R74.8 [facility] [address] [address] 6602 Apr, Recurrent urinary tract infection N39.0 [facility] [id number] [place] [address] 84190- 6354 Apr, UTI symptoms R39.9 ; Recurrent urinary tract infection N39.0 and Pelvic pain R10.2 [facility] [id number] [place] [address] 34455- 4202 Apr, Chronic pain G89.29 and Panic attacks F41.0 [facility] [address] [address]- 0425 Apr, Dysuria R30.0 [facility] [address] [address]- 3[address] Apr, [facility] [address] [address]- 9928 Apr, Dysuria R30.0 and Urinary tract infection without hematuria , site unspecified N39.0 [facility] [address] [address]- 4681 Mar, UTI symptoms R39.9 [facility] [id number] [place] [address] 32778- 0791 Mar, [facility] [id number] [address]- 3986 Mar, Panic attacks F41.0 and Chronic pain G89.29 [facility] [id number] [place] [address] 93569- 2809 Mar, [facility] [address] 89479- 0433 Mar, Dysuria R30.0 [facility] [id number] [place] [address] 22369- 6390 Mar, Dysuria R30.0 [facility] [address] 63572- 5239 Feb, Chronic pain G89.29 ; Shortness of breath R06.02 ; Weight loss R63.4 ; Encounter for immunization Z23 ; Bone pain M89.8X9 ; Right anterior knee pain M25.561 and Cough R05 [facility] [id number] [place] [address] 61412- 9972 Feb, Shortness of breath R06.02 [facility] [id number] [place] [address] 84682- 8785 Feb, [facility] [id number] [place] [address] 17717- 1407 Feb, Panic attacks F41.0 and Chronic pain G89.29 [facility] [id number] [place] [address] 93418- 9045 Feb, [facility] [id number] [place] [address] 09781- 3199 Feb, Panic attacks F41.0 ; Shortness of breath R06.02 and Encounter for immunization Z23 [facility] [id number] [place] [address] 33768- 8594 Jan, [facility] [address] 13040- 6934 15 Jan, 2017 Anxiety F41.9 and Chronic pain G89.29 [facility] [id number] [place] [address] 22633- 9639 Dec, Anxiety F41.9 and Chronic pain G89.29 [facility] [id number] [place] [address] 51950- 4608 Nov, Chronic pain G89.29 [facility] [address] 52008- 4892 Nov, Anxiety F41.9 [facility] [address] 72695- 1131 Nov, Chronic pain G89.29 ; Essential hypertension I10 and Other emphysema J43.8 [facility] [address] 46391- 1791 Oct, Anxiety F41.9 [facility] [address] 43930- 2039 Oct, [facility] [address] 79448- 6591 Oct, Chronic pain G89.29 [facility] [id number] [place] [address] 85834- 7147 September, Recurrent UTI N39.0 ; Neuropathy G62.9 and Anxiety F41.9 [facility] [id number] [place] [address] 96899- 8171 September, [facility] [id number] [place] [address] 21635- 3408 September, Chronic pain G89.29 [facility] [id number] [place] [address] 43385- 0998 September, [facility] [id number] [place] [address] 24088- 0651 Aug, Post-traumatic stress disorder, chronic F43.12 ; Chronic urinary tract infection N39.0 ; Gastroesophageal reflux disease without esophagitis K21.9 ; Chronic pain G89.29 ; Essential hypertension I10 and Tobacco abuse Z72.0 [facility] [id number] [place] [address] 55204 -7734 Aug, [facility] [address] [address]- 5721 Aug, Chronic pain G89.29 [facility] [address] [address]- 3961 Aug, Insomnia, unspecified type G47.00 [facility] [address] [address]- 6123 Aug, [facility] [address] [address]- 7021 24 Jul, [address] [facility] [address] [address]- 6678 Jul, [facility] [address] [address]- 9056 Jul, [facility] [address] [address]- 5029 Jul, [facility] [address] [address] 1960 15 Jul, 2016 Recurrent UTI (urinary tract infection) N39.0 [facility] [address] [address]- 4726 Jul, [facility] [address] [address]- 3268 Jun, Chronic pain G89.29 [facility] [address] [address]- 6192 17 Jun, 2016 [facility] [address] [address]- 3610 Jun, [facility] [address] [address]- 4387 May, Chronic pain G89.29 [facility] [address] [address]- 1836 May, Weight loss R63.4 and Shortness of breath R06.02 [facility] [id number] [place] [address] 94068- 9026 May, Chronic pain G89.29 ; Weight loss R63.4 and Tobacco abuse Z72.0 [facility] [id number] [place] [address] 46036- 0366 May, [facility] [address] 86892- 3360 May, Hypoxia R09.02 [facility] [id number] [place] [address] 42676- 2057 May, [facility] [id number] [place] [address] 38390- 2166 May, Pulmonary emphysema, unspecified emphysema type J43.9 [facility] [id number] [place] [address] 25478 -5439 May, [facility] [id number] [place] [address] 35597- 3173 May, [facility] [id number] [place] [address] 85246- 6393 May, [facility] [id number] [place] [address] 45428- 1665 May, Chronic pain G89.29 ; Encounter for immunization Z23 ; Right anterior knee pain M25.[address] [facility] [id number] [place] [address] 90374- 9801 Apr, Chronic pain G89.29 [facility] [id number] [place] [address] 58322- 5170 Apr, [facility] [id number] [place] [address] 83616- 8234 Apr, Generalized anxiety disorder F41.1 and Depression, unspecified depression type F32.9 [facility] [id number] [address]- 9000 Apr, Chronic pain G89.29 ; Hypokalemia E87.6 and Insomnia, unspecified type G47.00 [facility] [id number] [place] [address], [place] [address]- 6762 Apr, [facility] [id number] [place] [address] 40831- 8439 Apr, Chronic pain G89.29 [facility] [id number] [place] [address], [place] [address]- [address] Apr, [facility] [id number] [place] [address] 87797- 6213 Mar, [facility] [id number] [place] [address] 71559- 9604 Mar, Insomnia, unspecified type G47.00 [facility] [id number] [place] [address] 31045- 4160 Mar, Chronic pain G89.29 [facility] [id number] [address]- 1718 Mar, [facility] [id number] [place] [address] 79826- 9854 Feb, [facility] [address] [address]- 2694 Feb, [facility] [address] [address]- 2551 Feb, [facility] [id number] [address]- 5914 Feb, [facility] [id number] [place] [address] 32425- 7544 Feb, [facility] [id number] [address]- 1030 Jan, [facility] [id number] [place] [address] 68469- 0380 [address], [address] [facility] [id number] [place] [address] 64056- 2892 [address], [address] [facility] [id number] [place] [address] 98011- 9840 [address] Jan, 2016 [facility] [id number] [place] [address] 48189- 1813 12 Jan, 2016 [facility] [id number] [place] [address] 99315- 3368 07 Jan, [address] [facility] [id number] [place] [address] 06788- 3159 Jan, Chronic pain G89.[address] [facility] [id number] [place] [address] 24540- 1040 Dec, Depression, unspecified depression type F32.9 and Generalized anxiety disorder 300.02 [facility] [id number] [place] [address] 33648- 0973 Dec, Dysthymia F34.1 ; Insomnia, unspecified type G47.00 and Chronic pain G89.29 [facility] [id number] [place] [address] 75279- 8580 Dec, Chronic pain G89.29 [facility] [id number] [place] [address] 89517- 0312 Dec, Insomnia, unspecified type G47.00 [facility] [id number] [place] [address] 42680- 6333 Dec, Fibromyalgia M79.7 and Chronic pain G89.29 [facility] [id number] [place] [address] 47185- 1596 Dec, [facility] [id number] [place] [address] 12583- 4474 Dec, [facility] [id number] [address]- 3572 Dec, [facility] [id number] [place] [address] 12382- 2393 Dec, [facility] [id number] [place] [address] 94957- 5474 Dec, Chronic pain G89.29 [facility] [id number] [place] [address] 04372- 1405 Dec, [facility] [id number] [place] [address] 42756- [address] Dec, [facility] [id number] [place] [address] 46509- 3964 Dec, [facility] [id number] [place] [address] 47599- 6726 Dec, Chronic pain G89.29 [address]1 [facility] [id number] [place] [address] 61159- 4696 Nov, [facility] [id number] [place] [address] 79521- 6052 Nov, Hypokalemia E87.6 and Chronic pain G89.29 [facility] [id number] [place] [address] 48631- 5617 Nov, Back pain M54.9 and Pain in right knee M25.561 [facility] [id number] [place] [address] 19156- 1368 Nov, [facility] [id number] [place] [address] 83885- 3802 Nov, Chronic pain G89.29 [facility] [id number] [place] [address] 82866- 4205 Nov, Chronic pain G89.29 ; Weight loss R63.4 ; Bone pain M89.8X9 and Insomnia, unspecified type G47.00 [facility] [id number] [address]- 7676 Nov, Chronic pain G89.29 [facility] [address] [facility] [id number] [address] 2546 Nov, Chronic pain G89.29 [facility] [address] [address] 2546 30 Oct, [address] [facility] [address] [facility] [id number] [place] [address] 75411- 2985 Oct, UTI symptoms R39.9 [facility] [id number] [place] [address] 72475 2546 Oct, Chronic pain G89.29 [facility] [id number] [place] [address] 93880 2546 Oct, Chronic pain G89.29 [facility] [id number] [place] [address] 89146 2546 Oct, Chronic pain G89.29 [facility] [address] [address]- 3788 Oct, Right upper quadrant abdominal pain R10.11 [facility] [address] [address] 254 Oct, Chronic pain G89.29 [facility] [address] [address] 2546 Oct, [facility] [address] [address] 2547 September, Chronic pain G89.29 [facility] [address] [address] 2540 September, Dysuria R30.0 and Urinary tract infection without hematuria , site unspecified N39.0 [facility] [address] [address]- 5266 September, [facility] [id number] [place] [address] 50225- 4218 September, Dysuria R30.0 [facility] [id number] [place] [address] 69669- 6793 September, Chronic pain G89.29 [facility] [id number] [place] [address] 97430- 0973 September, Chronic pain G89.29 and Essential hypertension I10 [facility] [id number] [place] [address] 80771- 7022 September, [facility] [id number] [place] [address] 19873- [address] September, [facility] [id number] [place] [address] 13565- 7250 September, [facility] [id number] [place] [address] 61917- 8628 Aug, UTI symptoms R39.9 [facility] [id number] [place] [address] 45207- 7695 Aug, Dysuria R30.0 [facility] [id number] [place] [address] 27797- 5987 Aug, [facility] [id number] [place] [address] 26370- 0941 Aug, [facility] [id number] [place] [address] 47966- 6716 Aug, [facility] [id number] [place] [address] 92319- 4298 Aug, Chronic pain G89.29 [facility] [id number] [place] [address] 07590- 1407 Aug, Dysthymia F34.1 [facility] [id number] [place] [address]- [address] Aug, Conjunctivitis, unspecified conjunctivitis type, unspecified laterality H10.9 [facility] [address] [facility] [id number] [place] [address] 31 Jul, 2015 Chronic pain G89.29 ; Back pain M54.9 ; Tobacco abuse Z72.0 and Weight decrease R63.4 [facility] [address] [facility] [id number] [place] [address]46 30 Jul, [address] [facility] [id number] [place] [address], [place] [address] [address], [address] [facility] [address] [facility] [id number] [place] [address] 24 Jul, [address] [facility] [address] [id number] [place] [address]46 [address] Jul, [address] [facility] [address] [id number] [place] [address]46 [address] Jul, [address] [facility] [id number] [address]41 [address] Jul, [address] [facility] [address] [id number] [place] [address] 17 Jul, 2015 [facility] [id number] [place] [address] 17 Jul, [address] [facility] [id number] [place] [address] 16 Jul, [address] [facility] [id number] [place] [address] [address], [address] [facility] [id number] [place] [address] [address] [facility] [address] [id number] [place] [address], [address] [facility] [address] [id number] [place] [address] 2546 Jul, [facility] [id number] [place] [address] 97101- 8562 Jun, [facility] [address] [address]60- 4429 Jun, Depression, unspecified depression type F32.9 [address] [id number] [place] [address] 16180- 9615 Jun, Pain in right knee M25.561 [address] [place] [address] 17917- 7363 Jun, Chronic pain G89.29 ; Back pain M54.9 ; Bone pain M89.8X9 and Weight loss R63.4 [address] 54696- 3904 Jun, [address] [address] 04669- 6245 May, [address] [address] 14067- 2830 May, UTI symptoms R39.9 ; Pain in right knee M25.561 ; Right low back pain, with sciatica presence unspecified M54.5 ; Right foot pain M79.671 ; Hypokalemia E87.6 and Screening, lipid Z13.220 [address] [id number] [place] [address] 81912- 9064 May, [address] [id number] [place] [address] 69167- 0655 May, [address] [facility] [id number] [place] [address] 51146- 4616 Mar, [address] [address] 04676- 8135 Mar, [address] [id number] [place] [address] 09848- 3056 Mar, Hypokalemia E87.6 [address] [place] [address] [id number] [address]- 4220 Mar, Pain in right leg M79.604 ; Encounter for immunization Z23 ; Pain in right knee M25.[address] [facility] [address] [id number] [address] 0[address] Jan, [facility] [id number] [place] [address] 39498 2546 Jan, [facility] [id number] [place] [address] 97438 2543 Jan, Abdominal pain, generalized 789.07 [facility] [id number] [place] [address] 39809- 8340 Jan, Abdominal pain, generalized 789.07 [facility] [id number] [place] [address] 76075- 9764 Dec, [facility] [id number] [place] [address] 55042- 6392 Dec, [facility] [id number] [place] [address] 44087- 9100 Dec, [facility] [id number] [place] [address] 29358- 5010 Nov, Hallux valgus 735.[address] [facility] [address] [address]- 8140 Nov, [facility] [address] [address] 2540 Nov, Hallux valgus 735.[address] [facility] [address]00565[address] [address]- 2549 Oct, [facility] [address]00565[address] [address]- 5295 Oct, [facility] [address]005[address] [address]- 8314 Oct, Pre-op evaluation V72.84 [facility] [id number] [place] [address] 66686- 6912 Oct, [facility] [address]00565[address] [address] 2746 Oct, [facility] [id number] [place] [address] 92049- 2413 September, [facility] [id number] [place] [address] 39328- 6553 September, [facility] [id number] [place] [address] 90080- 5874 September, Hallux valgus (acquired) 735.0 and Other hammer toe ( acquired) 735.4 [facility] [id number] [place] [address] 20896- 9890 Aug, [facility] [address] [address]- 8716 Aug, [facility] [id number] [place] [address] 90999- [address] Jul, [facility] [address]005[address] [address]- 7971 Jul, [facility] [address]65[address] [address]- 6446 Jul, [facility] [address]00565100[place] [address]- [address] Jul, [facility] [id number] [place] [address] 29897- 1987 Jul, [facility] [address]00565[address] [address]- 2546 Jul, [facility] [address]00565[address] [address]- 2505 Jul, [facility] [place] [facility] [address] [id number] [place] [address]- 7611 Jul, [facility] [place] [facility] [address] [id number] [place] [address]- 8306 Jun, [facility] [place] [facility] [address] [id number] [place] [address]- 1960 Jun, [facility] [place] [facility] [address] [id number] [place] [address]- 2075 Jun, [facility] [place] [facility] [address] [id number] [place] [address]- 9425 Jun, [facility] [place] [facility] [address] [id number] [place] [address]- 1949 Jun, [facility] [place] [facility] [address] [id number] [place] [address]- 0306 Jun, [facility] [place] [facility] [address] [id number] [place] [address]- 0813 Jun, [facility] [place] [facility] [address] [id number] [place] [address]- 8904 Jun, [facility] [place] [facility] [address] [facility] [id number] [place] [address]- 1555 Jun, [facility] [place] [facility] [address] [id number] [place] [address]- 1086 Jun, [facility] [place] [facility] [address] [id number] [place] [address]- 2324 May, [facility] [place] [facility] [address] [id number] [place] [address]- 7432 May, [facility] [place] [facility] [address] [facility] [id number] [place] [address]- 3116 May, [facility] [place] [facility] [address] [facility] [id number] [place] [address]- 4179 May, [facility] [place] [facility] [address] [id number] [place] [address]- 7680 May, [facility] [address] [id number] [place] [address]- 2295 May, [facility] [address] [id number] [place] [address]- 4792 May, [facility] [address] [id number] [place] [address]- 3389 May, [facility] [address] [id number] [place] [address]- 4963 May, [facility] [address] [id number] [place] [address]- 7174 May, [facility] [address] [id number] [place] [address]- 8542 May, [facility] [address] [id number] [place] [address]- 9798 May, [facility] [address] [id number] [place] [address]- 2497 May, [facility] [address] [id number] [place] [address]- 9740 May, [facility] [address] [id number] [place] [address]- 4949 May, [facility] [address] [id number] [place] [address]- 4835 May, [facility] [address] [id number] [place] [address]- 8931 May, [facility] [place] [facility] [address] [id number] [place] [address]- 1909 May, [facility] [address] [id number] [place] [address]- 4763 Apr, [facility] [address] [id number] [place] [address]- 7161 Apr, [facility] [place] [facility] [address] [id number] [place] 6515 Apr, [facility] [place] [facility] [address] [id number] [place] 4258 Apr, [facility] [place] [facility] [address] [id number] [place] 9405 Apr, [facility] [place] [facility] [address] [id number] [place] [address]- 0915 Apr, [facility] [place] [facility] [address] [id number] [place] 2997 Apr, [facility] [place] [facility] [address] [id number] [place] [address]- 8957 Apr, [facility] [place] [facility] [address] [id number] [place] [address]- 4254 Apr, [facility] [place] [facility] [address] [id number] [place] [address]- 5258 Mar, [facility] [place] [facility] [address] [id number] [place] [address]- 1244 Mar, [facility] [place] [facility] [address] [id number] [place] [address]- 8619 Mar, [facility] [place] [facility] [address] [id number] [place] [address]- 9010 Mar, [facility] [place] [facility] [address] [id number] [address]- 7637 Mar, [facility] [place] [facility] [address] [id number] [place] [address]- 2695 Feb, [facility] [place] [facility] [address] [id number] [place] [address]- 0794 Feb, [facility] [place] [facility] [address] [id number] [place] 6908 Feb, [facility] [place] [facility] [address] [id number] [address]- 2700 Feb, 2013 [facility] [place] [facility] [address] [id number] [place] [address]- 6198 16 Feb, 2013 [facility] [place] [facility] [address] [id number] [place] [address]- 9173 16 Feb, 2013 [facility] [place] [facility] [address] [id number] [place] [address]- 9280 Feb, 2013 [facility] [place] [facility] [address] [id number] [place] [address]- 8636 Feb, 2013 [facility] [place] [facility] [address] [id number] [place] [address]- 3972 Feb, 2013 [facility] [place] [facility] [address] [id number] [place] [address]- 9581 Feb, 2013 [facility] [place] [facility] [address] [id number] [place] [address]- 2787 Feb, 2013 [facility] [place] [facility] [address] [id number] [address]- 5389 Feb, 2013 [facility] [place] [facility] [address] [id number] [place] [address]- 5925 Feb, 2013 [facility] [place] [facility] [address] [id number] [address]- 3221 Feb, 2013 [facility] [place] [facility] [address] [id number] [place] [address]- 9888 Feb, 2013 [facility] [place] [facility] [address] [id number] [place] [address]- 6289 Feb, 2013 [facility] [place] [facility] [address] [id number] [place] [address]- 7259 Jan, 2013 [facility] [place] [facility] [address] [id number] [place] [address]- 7931 23 Jan, 2013 [facility] [place] [facility] [address] [id number] [address]- 0090 20 Jan, 2013 [facility] [place] [facility] [address] [id number] [place] [address]- 3406 19 Jan, 2013 [facility] [place] [facility] [address] [id number] [place] [address]- 8986 Jan, 2013 [facility] [place] [facility] [address] [id number] [place] [address]- 7506 Jan, 2013 [facility] [place] [facility] [address] [id number] [place] [address]- 7896 Jan, [facility] [place] [facility] [address] [id number] [place] [address]- 1108 Jan, [facility] [place] [facility] [address] [id number] [place] [address]- 6336 Dec, [facility] [place] [facility] [address] [id number] [place] [address]- 8752 Dec, [facility] [place] [facility] [address] [id number] [place] [address]- 8607 Nov, [facility] [place] [facility] [address] [id number] [place] [address]- 8973 Nov, [facility] [place] [facility] [address] [id number] [place] [address]- 3863 Nov, [facility] [place] [facility] [address] [id number] [place] [address]- 3692 Nov, [facility] [place] [facility] [address] [id number] [place] [address]- 8954 Nov, [facility] [place] [facility] [address] [id number] [place] [address]- 6482 Nov, [facility] [place] [facility] [address] [id number] [place] [address]- 8786 Nov, [facility] [place] [facility] [address] [id number] [place] [address]- 2081 Nov, [facility] [place] [facility] [address] [id number] [place] [address]- 2724 Nov, [facility] [place] [facility] [address] [id number] [place] 3209 Oct, [facility] [place] [facility] [address] [id number] [place] [address]- 4932 Oct, [facility] [place] [facility] [address] [id number] [place] [address]- 9239 Oct, [facility] [place] [facility] [address] [id number] [place] [address]- 2473 Oct, [facility] [place] [facility] [address] [id number] [place] [address]- 8658 Oct, [facility] [place] [facility] [address] [id number] [place] [address]- 2981 Oct, [facility] [place] [facility] [address] [id number] [place] [address]- 9971 September, [facility] [place] [facility] [address] [id number] [place] [address]- 1814 September, [facility] [place] [facility] [address] [id number] [place] [address]- 4290 September, [facility] [place] [facility] [address] [id number] [place] [address]- 9839 September, [facility] [place] [facility] [address] [id number] [place] [address]- 0895 September, [facility] [place] [facility] [address] [id number] [place] [address]- 3791 September, [facility] [place] [facility] [address] [id number] [place] [address]- 7170 September, [facility] [place] [facility] [address] [id number] [place] [address]- 4295 September, [facility] [place] [facility] [address] [id number] [place] [address]- 2998 September, [facility] [place] [facility] [address] [id number] [place] [address]- 7497 September, [facility] [address] [id number] [place] [address]- 1043 September, [facility] [place] [facility] [address] [id number] [place] [address]- 2268 September, [facility] [address] [id number] [place] [address]- 9590 September, [facility] [place] [facility] [address] [id number] [place] [address]- 1563 September, [facility] [place] [facility] [address] [id number] [place] [address]- 8077 September, [facility] [place] [facility] [address] [id number] [place] [address]- 3199 September, [facility] [address] [id number] [place] [address]- 4279 September, [facility] [address] [id number] [place] [address]- 7807 September, [facility] [place] [facility] [address] [id number] [place] [address]- 4407 September, [facility] [address] [id number] [place] [address]- 1804 September, [facility] [place] [facility] [address] [id number] [place] [address]- 0631 Aug, [facility] [place] [facility] [address] [id number] [place] [address]- 3379 Aug, [facility] [place] [facility] [address] [id number] [place] [address]- 8465 Aug, [facility] [place] [facility] [address] [id number] [place] [address]- 5180 Aug, [facility] [place] [facility] [address] [id number] [place] [address]- 9760 Aug, [facility] [place] [facility] [address] [id number] [place] [address]- 6747 18 Aug, 2013 [facility] [place] [facility] [address] [id number] [place] [address]- 1220 16 Aug, 2013 [facility] [place] [facility] [address] [id number] [place] [address]- 1236 16 Aug, 2013 [facility] [place] [facility] [address] [id number] [place] [address]- 4819 15 Aug, 2013 [facility] [place] [facility] [address] [id number] [place] [address]- 8840 15 Aug, 2013 [facility] [place] [facility] [address] [id number] [place] [address]- 4341 14 Aug, 2013 [facility] [place] [facility] [address] [id number] [place] [address]- 7427 Aug, [facility] [place] [facility] [address] [id number] [place] [address]- 5806 Aug, [facility] [place] [facility] [address] [id number] [place] [address]- 7664 Aug, [facility] [place] [facility] [address] [id number] [place] [address]- 3683 Aug, [facility] [place] [facility] [address] [id number] [place] [address]- 2445 Jul, [facility] [place] [facility] [address] [id number] [place] [address]- 7522 31 Jul, 2013 [facility] [place] [facility] [address] [id number] [place] [address]- 7928 Jul, [facility] [place] [facility] [address] [id number] [place] [address]- 8056 27 Jul, 2013 [facility] [place] [facility] [address] [id number] [place] [address]- 2699 20 Jul, 2013 [facility] [place] [facility] [address] [id number] [place] [address]- 1099 Jul, [facility] [place] [facility] [address] [id number] [place] [address]- 5247 Jul, [facility] [place] [facility] [address] [id number] [place] [address]- 3447 Jul, [facility] [place] [facility] [address] [id number] [place] [address]- 9089 Jul, [facility] [place] [facility] [address] [id number] [place] [address]- 3722 Jul, [facility] [place] [facility] [address] [id number] [place] [address]- 5351 Jul, [facility] [place] [facility] [address] [id number] [place] [address]- 9070 Jul, [facility] [place] [facility] [address] [facility] [id number] [place] [address]- 4468 Jul, [facility] [place] [facility] [address] [id number] [place] [address]- 0690 Jul, [facility] [place] [facility] [address] [id number] [place] [address]- 9126 Jul, [facility] [place] [facility] [address] [facility] [id number] [place] [address]- 2784 Jun, [facility] [place] [facility] [address] [id number] [place] [address]- 8866 Jun, [facility] [place] [facility] [address] [id number] [place] [address]- 1053 Jun, [facility] [place] [facility] [address] [id number] [place] [address]- 1249 Jun, [facility] [place] [facility] [address] [id number] [place] [address]- 2860 Jun, [facility] [place] [facility] [address] [facility] [id number] [place] [address]- 6329 Jun, [facility] [place] [facility] [address] [id number] [place] [address]- 5355 May, [facility] [place] [facility] [address] [id number] [place] [address]- 7116 May, [facility] [place] [facility] [address] [id number] [place] [address]- 6898 May, [facility] [place] [facility] [address] [id number] [place] [address]- 8917 May, [facility] [place] [facility] [address] [id number] [place] [address]- 5640 May, [facility] [place] [facility] [address] [id number] [place] [address]- 2283 May, [facility] [place] [facility] [address] [id number] [place] [address]- 4652 May, [facility] [place] [facility] [address] [id number] [place] [address]- 8042 May, [facility] [place] [facility] [address] [id number] [place] [address]- 4168 May, [facility] [place] [facility] [address] [id number] [place] [address]- 3479 May, [facility] [place] [facility] [address] [id number] [place] [address] May, [facility] [place] [facility] [address] [id number] [place] [address] May, [facility] [place] [facility] [address] [id number] [place] [address] May, [facility] [place] [facility] [address] [id number] [place] [address] May, [facility] [place] [facility] [address] [id number] [place] [address] May, [facility] [place] [facility] [address] [id number] [place] [address] Apr, [facility] [place] [facility] [address] [id number] [place] [address] Apr, [facility] [place] [facility] [address] [id number] [place] [address] Apr, [facility] [place] [facility] [address] [id number] [place] [address] Apr, [facility] [place] [facility] [address] [id number] [place] [address] Apr, [facility] [place] [facility] [address] [id number] [place] [address] Apr, [facility] [place] [facility] [address] [id number] [place] [address] Apr, [facility] [place] [facility] [address] [id number] [place] [address] Apr, [facility] [place] [facility] [address] [id number] [place] [address] Apr, [facility] [place] [facility] [address] [id number] [place] [address]- [address] Apr, [facility] [place] [facility] [address] [id number] [place] [address] Mar, [facility] [place] [facility] [address] [id number] [place] [address] Mar, [facility] [place] [facility] [address] [id number] [place] [address] Mar, [facility] [place] [facility] [address] [id number] [place] [address] Mar, [facility] [place] [facility] [address] [id number] [place] [address] Mar, [facility] [place] [facility] [address] [id number] [place] [address] Mar, [facility] [place] [facility] [address] [id number] [place] [address]184 Mar, [facility] [address] [id number] [place] [address] Mar, [facility] [address] [id number] [place] [address]- [address] Mar, [facility] [address] [id number] [place] [address] Mar, [facility] [address] [id number] [place] [address] Mar, [facility] [address] [id number] [place] [address] Mar, [facility] [address] [id number] [place] [address] Mar, [facility] [address] [id number] [place] [address] Mar, [facility] [address] [id number] [place] [address] Mar, [facility] [address] [id number] [place] [address]- 284[address] Mar, [facility] [address] [id number] [place] [address] Mar, [facility] [address] [id number] [place] [address] 14 Mar, 2013 [facility] [address] [id number] [place] [address] Mar, [facility] [place] [facility] [address] [id number] [place] [address]- [address]646 Mar, [facility] [place] [facility] [address] [id number] [place] [address] Mar, [facility] [address] [id number] [place] [address] Mar, [facility] [place] [facility] [address] [id number] [place] [address]- 99[address] Mar, [facility] [place] [facility] [address] [id number] [place] [address] Feb, [facility] [place] [facility] [address] [id number] [place] [address]- [address]158 Feb, [facility] [place] [facility] [address] [id number] [place] [address]- [address] Feb, [facility] [place] [facility] [address] [id number] [place] [address]- [address]261 Feb, [facility] [place] [facility] [address] [id number] [place] [address]- [address] 15 Feb, 2013 [facility] [place] [facility] [address] [id number] [place] [address]- 9578 Feb, [facility] [place] [facility] [address] [id number] [place] [address] 94[address] Feb, [facility] [place] [facility] [address] [id number] [place] [address]652 Feb, [facility] [place] [facility] [address] [id number] [place] [address] Feb, [facility] [place] [facility] [address] [id number] [place] [address] Feb, [facility] [place] [facility] [address] [id number] [place] [address] 30 Jan, 2013 [facility] [place] [facility] [address] [id number] [place] [address]- [address] 26 Jan, 2012 [facility] [place] [facility] [address] [id number] [place] [address]- [address] 24 Jan, 2013 [facility] [place] [facility] [address] [id number] [place] [address]- [address] 23 Jan, 2012 [facility] [place] [facility] [address] [id number] [place] [address]- [address] Jan, [facility] [address] [id number] [place] [address]- [address] Dec, [facility] [place] [facility] [address] [id number] [place] [address]- 8530 Dec, [facility] [place] [facility] [address] [id number] [place] [address]- 3827 Dec, [facility] [place] [facility] [address] [id number] [place] [address]366 Dec, [facility] [place] [facility] [address] [id number] [place] [address]- 1796 Dec, [facility] [place] [facility] [address] [id number] [place] [address]- [address]39 Dec, [facility] [place] [facility] [address] [id number] [place] [address] Dec, [facility] [place] [facility] [address] [id number] [place] [address]- 8787 Nov, [facility] [place] [facility] [address] [id number] [place] [address]- 48[address] Nov, [facility] [place] [facility] [address] [id number] [place] [address]- 3842 Nov, [facility] [place] [facility] [address] [id number] [place] [address]- [address]508 Nov, [facility] [place] [facility] [address] [id number] [place] [address]- [address]487 Nov, [facility] [place] [facility] [address] [address] [id number] [place] [address] Oct, [facility] [place] [facility] [address] [id number] [place] [address] Oct, [facility] [place] [facility] [address] [id number] [place] [address] Oct, [facility] [place] [facility] [address] [id number] [place] [address] September, [facility] [address] [id number] [place] [address] September, [facility] [address] [id number] [place] [address] September, [facility] [address] [id number] [place] [address] 8786 September, [facility] [address] [id number] [place] [address] September, [facility] [address] [id number] [place] [address] 7693 September, [facility] [address] [id number] [place] [address] September, [facility] [address] [id number] [place] [address] 5867 30 Aug, 2012 [facility] [address] [id number] [place] [address] 7036 Aug, [facility] [address] [id number] [place] [address] 9527 Aug, [facility] [address] [id number] [place] [address] 9264 29 Jul, 2012 [facility] [address] [id number] [place] [address]- 7221 27 Jul, 2012 [facility] [address] [id number] [place] [address] 3168 Jul, [facility] [place] [facility] [address] [id number] [place] [address] 2860 20 Jul, 2012 [facility] [place] [facility] [address] [id number] [place] [address]- 8766 18 Jul, 2012 [facility] [place] [facility] [address] [id number] [place] [address] 9414 Jul, [facility] [address] [id number] [place] [address]109 Jul, [facility] [address] [id number] [place] [address] 9166 Jun, [facility] [address] [facility] [id number] [place] [address]- 8196 Jun, [facility] [place] [facility] [address] [id number] [place] [address]- 9528 Jun, [facility] [address] [id number] [place] [address]- 2724 Jun, [facility] [address] [facility] [id number] [place] [address]- 1363 Jun, [facility] [address] [facility] [id number] [place] [address]- 8309 Jun, [facility] [place] [facility] [address] [id number] [place] [address]- 6520 Jun, [facility] [address] [facility] [id number] [place] [address]- 7419 Jun, [facility] [place] [facility] [address] [facility] [id number] [place] [address]- 5383 Jun, [facility] [place] [facility] [address] [facility] [id number] [place] [address]- 6980 Jun, [facility] [place] [facility] [address] [facility] [id number] [place] [address]- 8273 May, [facility] [place] [facility] [address] [id number] [place] [address]- 1263 May, [facility] [place] [facility] [address] [facility] [id number] [place] [address]- 2671 May, [facility] [place] [facility] [address] [facility] [id number] [place] [address] 7260 May, [facility] [place] [facility] [address] [id number] [place] [address]- 6540 15 May, 2012 [facility] [place] [facility] [address] [id number] [place] [address]- 4776 07 May, 2012 [facility] [place] [facility] [address] [id number] [place] [address]- 2646 31 Apr, 2012 [facility] [place] [facility] [address] [id number] [place] [address]- 8906 31 Apr, 2012 [facility] [place] [facility] [address] [id number] [place] [address]- 3575 Apr, [facility] [place] [facility] [address] [id number] [place] [address]- 9376 Apr, [facility] [place] [facility] [address] [id number] [place] [address] 4090 Apr, [facility] [place] [facility] [address] [id number] [place] [address]- 6681 Apr, [facility] [place] [facility] [address] [id number] [place] [address]- 2231 Apr, [facility] [place] [facility] [address] [id number] [place] [address]- 1464 29 Mar, 2012 [facility] [place] [facility] [address] [id number] [place] [address]- 4953 29 Mar, 2012 [facility] [place] [facility] [address] [id number] [place] [address]- 9529 27 Mar, 2012 [facility] [place] [facility] [address] [id number] [place] [address] 2548 Mar, [facility] [place] [facility] [address] [id number] [place] [address] 2546 Mar, [facility] [place] [facility] [address] [id number] [place] [address]- 2547 18 Mar, 2012 [facility] [place] [facility] [address] [id number] [place] [address]- 9602 Mar, [facility] [place] [facility] [address] [id number] [place] [address]- 9989 Mar, [facility] [place] [facility] [address] [id number] [place] [address]- 0736 Mar, [facility] [place] [facility] [address] [facility] [id number] [place] [address]- 9952 Mar, [facility] [place] [facility] [address] [id number] [place] [address]- 2064 Mar, [facility] [place] [facility] [address] [id number] [place] [address]- 1591 Mar, [facility] [place] [facility] [address] [id number] [place] [address]- 4214 Mar, [facility] [place] [facility] [address] [facility] [id number] [place] [address]- 49[address] Mar, [facility] [place] [facility] [address] [id number] [place] [address]- 0095 Mar, [facility] [place] [facility] [address] [id number] [place] [address] 8839 Mar, [facility] [place] [facility] [address] [facility] [id number] [place] [address]- 2547 Mar, [facility] [place] [facility] [address] [id number] [place] [address]- 8495 Feb, [facility] [place] [facility] [address] [id number] [place] [address]- 7538 Feb, [facility] [place] [facility] [address] [id number] [place] [address]- 3578 Feb, [facility] [place] [facility] [address] [facility] [id number] [place] [address]- 3275 Feb, [facility] [place] [facility] [address] [facility] [id number] [place] [address]- 8878 Feb, [facility] [place] [facility] [address] [id number] [place] [address]- 0839 16 Feb, 2012 [facility] [place] [facility] [address] [id number] [place] [address]- 1300 Feb, [facility] [place] [facility] [address] [id number] [place] [address]- 4956 11 Feb, 2012 [facility] [place] [facility] [address] [id number] [place] [address]- 4973 05 Feb, 2012 [facility] [place] [facility] [address] [id number] [place] [address]- 0476 04 Feb, 2012 [facility] [place] [facility] [address] [id number] [place] [address]- 7838 02 Feb, 2012 [facility] [place] [facility] [address] [id number] [place] [address]- 8958 27 Jan, 2012 [facility] [place] [facility] [address] [id number] [place] [address]- 3782 25 Jan, 2012 [facility] [place] [facility] [address] [id number] [place] [address]- 0764 13 Jan, 2012 [facility] [place] [facility] [address] [id number] [place] [address]- 3717 12 Jan, 2012 [facility] [place] [facility] [address] [id number] [place] [address]- 4621 07 Jan, 2012 [facility] [place] [facility] [address] [id number] [place] [address]- 5170 31 Dec, 2011 [facility] [place] [facility] [address] [id number] [place] [address]- 1662 24 Dec, 2011 [facility] [place] [facility] [address] [id number] [place] [address]- 2133 Dec, [facility] [place] [facility] [address] [id number] [place] [address]- 0588 18 Dec, 2011 [facility] [place] [facility] [address] [id number] [place] [address]- 3859 Dec, [facility] [place] [facility] [address] [id number] [place] [address]- 6611 Dec, [facility] [place] [facility] [address] [id number] [place] [address]- 9652 Dec, [facility] [place] [facility] [address] [id number] [place] [address]- 2546 Dec, [facility] [place] [facility] [address] [id number] [place] [address]- 0746 Nov, [facility] [address] [id number] [place] [address]- 6170 Nov, [facility] [place] [facility] [address] [id number] [place] [address]- 5983 Nov, [facility] [address] [id number] [place] [address]- 6938 Nov, [facility] [address] [id number] [place] [address]- 1761 Nov, [facility] [address] [id number] [place] [address]- 1231 Oct, [facility] [place] [facility] [address] [id number] [place] [address]- 1559 Oct, [facility] [place] [facility] [address] [id number] [place] [address]- 8117 September, [facility] [place] [facility] [address] [id number] [place] [address]- 2917 September, [facility] [place] [facility] [address] [id number] [place] [address]- 7674 September, [facility] [place] [facility] [address] [id number] [place] [address]- 2676 September, [facility] [place] [facility] [address] [id number] [place] [address]- 2546 September, [facility] [place] [facility] [address] [id number] [place] [address]- 0998 September, [facility] [address] [id number] [place] [address]- 3450 September, [facility] [place] [facility] [address] [id number] [place] [address]- 0164 September, [facility] [address] [id number] [place] [address]- 7142 September, [facility] [place] [facility] [address] [id number] [place] [address]- 0121 September, [facility] [address] [id number] [place] [address]- 6745 September, [facility] [place] [facility] [address] [id number] [place] [address]- 0027 September, [facility] [address] [id number] [place] [address]- 5896 September, [facility] [place] [facility] [address] [id number] [place] [address]- 9096 September, [facility] [address] [id number] [place] [address]- 9957 24 Aug, 2011 [facility] [place] [facility] [address] [id number] [place] [address]- 0636 Aug, [facility] [place] [facility] [address] [id number] [place] [address]- 2753 Aug, [facility] [place] [facility] [address] [id number] [place] [address]- 1369 Aug, [facility] [place] [facility] [address] [id number] [place] [address]- 9661 Jul, [facility] [place] [facility] [address] [id number] [place] [address]- 8730 Jul, [facility] [place] [facility] [address] [id number] [place] [address]- 4357 Jul, [facility] [place] [facility] [address] [id number] [place] [address]- 9112 28 Jun, 2011 [facility] [address] [id number] [place] [id number] Jun, 2011 [facility] [address] [facility] [id number] [place] [address]- 2546 13 Jun, 2011 [facility] [address] [id number] [place] [address]- 6316 10 Jun, 2011 [facility] [address] [id number] [place] [address] 2543 07 Jun, 2011 [facility] [address] [id number] [place] [address]- 7376 07 Jun, 2011 [facility] [address] [id number] [place] [address]- 2541 03 Jun, 2011 [facility] [address] [id number] [place] [address]- 0737 02 Jun, 2011 [facility] [address] [id number] [place] [address]- 3603 May, [facility] [address] [id number] [place] [address]- 6863 May, [facility] [address] [id number] [place] [address]- 1773 May, [facility] [address] [id number] [place] [address]- 9788 May, [facility] [address] [id number] [place] [address]- 2542 May, [facility] [place] [facility] [address] [facility] [id number] [place] [address]- 2544 May, [facility] [place] [facility] [address] [facility] [id number] [place] [address]- 2542 May, [facility] [address] [id number] [place] [address]- 0848 May, [facility] [place] [facility] [address] [id number] [place] [address]- 5711 May, [facility] [place] [facility] [address] [id number] [place] [address]- 9935 May, [facility] [place] [facility] [address] [id number] [place] [address]- 5303 17 May, 2011 [facility] [place] [facility] [address] [id number] [place] [address]- 1403 13 May, 2011 [facility] [place] [facility] [address] [id number] [place] [address]- 8868 May, [facility] [place] [facility] [address] [id number] [place] [address]- 9117 May, [facility] [place] [facility] [address] [id number] [place] [address]- 9495 Apr, [facility] [place] [facility] [address] [id number] [place] [address]- 9212 Apr, [facility] [place] [facility] [address] [id number] [place] [address]- 1403 Apr, [facility] [place] [facility] [address] [id number] [place] [address]- 9229 Mar, [facility] [place] [facility] [address] [id number] [place] [address]- 0046 Mar, [facility] [place] [facility] [address] [id number] [place] [address]- 1572 Feb, [facility] [place] [facility] [address] [id number] [place] [address]- 6933 Feb, [facility] [place] [facility] [address] [id number] [place] [address]- 1253 Feb, [facility] [place] [facility] [address] [id number] [place] [address]- 5658 Feb, [facility] [place] [facility] [address] [id number] [place] [address]- 1916 13 Feb, 2011 [facility] [place] [facility] [address] [id number] [place] [address]- 4026 28 Apr, 2010 [facility] [place] [facility] [address] [id number] [place] [address] 2546 22 Apr, 2010 [facility] [place] [facility] [address] [id number] [place] [address] 2546 16 Apr, 2010 [facility] [place] [facility] [address] [id number] [place] [address] 2546 15 Apr, 2010 [facility] [place] [facility] [address] [id number] [place] [address] 2546 15 Apr, 2010 [facility] [place] [facility] [address] [id number] [place] [address] 2546 Apr, [facility] [place] [facility] [address] [id number] [place] [address]- 4363 24 Mar, 2010 [facility] [place] [facility] [address] [id number] [place] [address] 2540 17 Mar, 2010 [facility] [place] [facility] [address] [id number] [place] [address]- 7706 17 Mar, 2010 [facility] [place] [facility] [address] [id number] [place] [address] 254 28 Feb, 2010 [facility] [place] [facility] [address] [id number] [place] [address] 2546 22 Feb, 2010 [facility] [place] [facility] [address] [id number] [place] [address] 2541 Feb, [facility] [place] [facility] [address] [id number] [place] [address] 2546 15 Feb, 2010 [facility] [place] [facility] [address] [id number] [place] [address] 2546 18 Dec, 2009 [facility] [place] [facility] [address] [id number] [place] [address] 2547 Dec, [facility] [address] [facility] [id number] [place] [address]- 5634 [address], [address] [facility] [address] [facility] [id number] [place] [address]- 8674 Mar, [facility] [address] [facility] [id number] [place] [address]- 5[address] Mar, [facility] [address] [facility] [id number] [place] [address]- 5032 September, IMMUNIZATIONS No Known Immunizations SOCIAL HISTORY Never Assessed REASON FOR VISIT Xray (walk-in) MHill RT(R) PLAN OF CARE VITAL SIGNS MEDICATIONS Unknown Medications RESULTS Name Result Date Reference Range Xray : Spine, Lumbar 2-3 views (IN HOUSE) 2017-06-07 PROCEDURES Procedure Date Ordered Result Body Site X-RAY EXAM OF LOWER SPINE Jun 07, 2017 INSTRUCTIONS MEDICATIONS ADMINISTERED No Known Medications [...]
--- OUTSIDE RECORDS SUMMARY | 2017-11-27 15:52 | XMS REPORT ---
Author Author VALERIE ZAVALA [facility] Address [address] [place] [address] Care Team Providers Care Environment Coordinator Name Role Phone VALERIE ZAVALA Unavailable PROBLEMS Type Condition ICD9-CM Code AFE47-HY Code Onset Dates Condition Status SNOMED Code Problem Generalized anxiety disorder F41.1 Active 60495570 Problem Hypokalemia E87.6 Active 328989959 Problem Right low back pain, with sciatica presence unspecified M54.5 Active 715414693 Problem Post-traumatic stress disorder, chronic F43.12 Active 38898448 Problem Pain in right knee M25.561 Active 91274456 Problem Gastroesophageal reflux disease without esophagitis K21.9 Active 698078327 Problem UTI symptoms R39.9 Active 24742318 Problem Essential hypertension I10 Active 35026079 Problem Anxiety F41.9 Active 53373433 Problem Neuropathy G62.9 Active 631788016 Problem Other chronic pain G89.29 Active 30960045 Problem Generalized abdominal pain R10.84 Active 060223926 Problem Chronic pain G89.29 Active 37363607 Problem Back pain M54.9 Active 655412951 Problem Right foot pain M79.671 Active 15047717 Problem Panic attacks F41.0 Active 184819776 Problem Other emphysema J43.8 Active 47391924 Problem Kidney stones N20.0 Active 27014796 Problem Renal calculus, right N20.0 Active 81802504 Problem Weight decrease R63.4 Active 345854687 Problem Tobacco abuse Z72.0 Active 66357587 Problem Bone pain M89.8X9 Active 64105943 Problem Depression, unspecified depression type F32.9 Active 87881536 Problem Insomnia, unspecified type G47.00 Active 562111155 Problem Pulmonary emphysema, unspecified emphysema type J43.9 Active 18032702 Problem Right upper quadrant abdominal pain R10.11 Active 625105111 Problem Weight loss R63.4 Active 893214287 ALLERGIES No Information ENCOUNTERS Encounter Location Date Diagnosis [facility] [id number] [address] Nov, [facility] [id number] [place] [address] 06241- 8822 Oct, Gross hematuria R31.0 ; Urinary tract infection without hematuria, site unspecified N39.0 and Weakness R53.1 [facility] [id number] [place] [address] 38263- 0590 Oct, [facility] [id number] [place] [address] 79187- 0878 Oct, [facility] [id number] [place] [address] 13887- 7129 Oct, Medicare welcome exam Z00.00 [facility] [id number] [place] [address] 47757- 8713 September, Back pain M54.9 and Right anterior knee pain M25.561 [facility] [id number] [place] [address] 88352- 5905 September, [facility] [id number] [place] [address] 01322- 0314 September, [facility] [id number] [place] [address] 85972- 9052 September, Essential hypertension I10 [facility] [id number] [place] [address] 04162- 4986 September, [facility] [id number] [place] [address] 59272- 2743 September, RLQ abdominal pain R10.31 ; Low back pain M54.5 and Other chronic pain G89.29 [facility] [id number] [place] [address] 57657- 5858 Aug, Medicare welcome exam Z00.00 [facility] [id number] [place] [address] 39901- 3970 Aug, [facility] [id number] [place] [address] 74203- 2047 Aug, Acute pyelonephritis N10 and Medicare welcome exam Z00.00 [facility] [id number] [place] [address] 36077 -2654 Aug, Dysuria R30.0 and Acute pyelonephritis N10 [facility] [id number] [place] [address] 90623- 0256 Aug, [facility] [id number] [place] [address] 36965- 3852 Aug, [facility] [id number] [place] [address] 67623- 0646 Aug, [facility] [id number] [place] [address] 36845- 4575 Aug, [facility] [id number] [place] [address] 55605- 4058 Jul, [facility] [id number] [place] [address] 80454- 8087 Jul, Renal calculus, right N20.0 and Medicare welcome exam Z00.00 [facility] [id number] [place] [address] 68757 -0580 Jul, Dysuria R30.0 and Renal calculus, right N20.0 [facility] [address] [address] 4962 Jul, Medicare welcome exam Z00.00 [facility] [id number] [place] [address] 50219- 4130 Jun, Gastroesophageal reflux disease without esophagitis K21.9 and Generalized abdominal pain R10.84 [facility] [address] [address] 9294 Jun, Medicare welcome exam Z00.00 [facility] [id number] [place] [address] 74419- 8140 05 Jun, 2017 [place] [address] 85061- 2427 05 Jun, 2017 Medicare welcome exam Z00.00 and Encounter for screening mammogram for malignant neoplasm of breast Z12.31 [facility] [facility] [address] 71363- 1727 02 Jun, 2017 Chronic pain G89.29 [facility] [id number] [place] [address] 67664- 9224 May, [facility] [facility] [address] 85726- 4459 May, Pelvic pain R10.2 [place] [facility] [address] 10646- 1405 May, Pelvic pain R10.2 [facility] [id number] [place] [address] 94724 -5524 May, Renal calculus, right N20.0 [place] [address] 94959- 9858 May, Hematuria, unspecified type R31.9 and Nephrolithiasis N20.0 [facility] [id number] [place] [address] 81464 -7247 May, Dysuria R30.0 and Nephrolithiasis N20.0 [place] [id number] [place] [address] 93572- 3398 May, [facility] [address] 28355 -3573 May, Abdominal pain R10.9 and Kidney stone N20.0 [place] [id number] [place] [address] 89903- 1234 May, [place] [facility] [address] 42068- 5131 May, Chronic pain G89.29 and Panic attacks F41.0 [facility] [address] [address] 4771 May, Urinary tract infection without hematuria, site unspecified N39.0 [facility] [address] [address]- 8004 Apr, Right lower quadrant abdominal pain R10.31 and Abnormal serum lipase level R74.8 [facility] [address] [address]- 1407 Apr, Recurrent urinary tract infection N39.0 [facility] [id number] [place] [address] 55396- 5407 Apr, UTI symptoms R39.9 ; Recurrent urinary tract infection N39.0 and Pelvic pain R10.2 [facility] [id number] [place] [address] 71438- 7825 Apr, Chronic pain G89.29 and Panic attacks F41.0 [facility] [address] [address]- 3962 Apr, Dysuria R30.0 [facility] [address] [address]- 0651 Apr, [facility] [address] [address]- 2675 Apr, Dysuria R30.0 and Urinary tract infection without hematuria , site unspecified N39.0 [facility] [address] [address]- 4063 Mar, UTI symptoms R39.9 [facility] [id number] [place] [address] 53317- 3743 Mar, [facility] [id number] [address]- 7715 Mar, Panic attacks F41.0 and Chronic pain G89.29 [facility] [facility] [id number] [place] [address] 40858- 5074 Mar, [facility] [facility] [address] 38778- 8784 Mar, Dysuria R30.0 [facility] [facility] [id number] [place] [address] 46602- 3140 Mar, Dysuria R30.0 [place] [address] 33861- 8098 Feb, Chronic pain G89.29 ; Shortness of breath R06.02 ; Weight loss R63.4 ; Encounter for immunization Z23 ; Bone pain M89.8X9 ; Right anterior knee pain M25.561 and Cough R05 [facility] [facility] [id number] [place] [address] 44348- 6276 Feb, Shortness of breath R06.02 [place] [facility] [id number] [place] [address] 09899- 5460 Feb, [place] [id number] [place] [address] 98560- 6356 Feb, Panic attacks F41.0 and Chronic pain G89.29 [place] [facility] [id number] [place] [address] 13303- 0222 Feb, [place] [id number] [place] [address] 11940- 5963 Feb, Panic attacks F41.0 ; Shortness of breath R06.02 and Encounter for immunization Z23 [facility] [facility] [id number] [place] [address] 84541- 7996 Jan, [place] [address] 41881- 3099 15 Jan, 2017 Anxiety F41.9 and Chronic pain G89.29 [facility] [facility] [id number] [place] [address] 44827- 9929 Dec, Anxiety F41.9 and Chronic pain G89.29 [facility] [id number] [place] [address] 03427- 0748 Nov, Chronic pain G89.29 [facility] [address] 76163- 5955 Nov, Anxiety F41.9 [place] [address] 89788- 2775 Nov, Chronic pain G89.29 ; Essential hypertension I10 and Other emphysema J43.8 [place] [address] 98304- 6330 Oct, Anxiety F41.9 [place] [address] 54619- 7208 Oct, [place] [address] 32922- 0261 Oct, Chronic pain G89.29 [facility] [id number] [place] [address] 48029- 7392 September, Recurrent UTI N39.0 ; Neuropathy G62.9 and Anxiety F41.9 [place] [id number] [place] [address] 27645- 8614 September, [place] [id number] [place] [address] 00230- 0705 September, Chronic pain G89.29 [facility] [id number] [place] [address] 23783- 2104 September, [facility] [id number] [place] [address] 34816- 4254 Aug, Post-traumatic stress disorder, chronic F43.12 ; Chronic urinary tract infection N39.0 ; Gastroesophageal reflux disease without esophagitis K21.9 ; Chronic pain G89.29 ; Essential hypertension I10 and Tobacco abuse Z72.0 [facility] [id number] [place] [address] 97721 -1785 Aug, [facility] [address] [address]- 0947 Aug, Chronic pain G89.29 [facility] [address] [address]- 7528 Aug, Insomnia, unspecified type G47.00 [facility] [address] [address]- 4940 Aug, [facility] [address] [address]- 3346 24 Jul, 2016 Chronic pain G89.29 [facility] [address] [address]- 0169 Jul, [facility] [address] [address]- 0952 Jul, [facility] [address] [address]- 6876 Jul, [facility] [address] [address]- 0495 15 Jul, 2016 Recurrent UTI (urinary tract infection) N39.0 [facility] [address] [address]- 8035 Jul, [facility] [address] [address]- 8557 Jun, Chronic pain G89.29 [facility] [address] [address]- 8925 17 Jun, 2016 [facility] [address] [address]- 9247 Jun, [facility] [address] [address]- 1492 May, Chronic pain G89.29 [facility] [address] [address]- 3912 May, Weight loss R63.4 and Shortness of breath R06.02 [facility] [id number] [place] [address] 99646- 4269 May, Chronic pain G89.29 ; Weight loss R63.4 and Tobacco abuse Z72.0 [facility] [id number] [place] [address] 47125- 3805 May, [facility] [address] 31837- 8241 May, Hypoxia R09.02 [facility] [id number] [place] [address] 73730- 0715 May, [place] [id number] [place] [address] 68225- 5252 May, Pulmonary emphysema, unspecified emphysema type J43.9 [facility] [id number] [place] [address] 78930 -9026 May, [facility] [id number] [place] [address] 43365- 2572 May, [facility] [id number] [place] [address] 64332- 4826 May, [facility] [id number] [place] [address] 99459- 6199 May, Chronic pain G89.29 ; Encounter for immunization Z23 ; Right anterior knee pain M25.561 and Cough R05 [facility] [id number] [place] [address] 12197- 7652 Apr, Chronic pain G89.29 [facility] [id number] [place] [address] 09250- 6786 Apr, [facility] [id number] [place] [address] 13559- 2661 Apr, Generalized anxiety disorder F41.1 and Depression, unspecified depression type F32.9 [facility] [id number] [address]- 1038 Apr, Chronic pain G89.29 ; Hypokalemia E87.6 and Insomnia, unspecified type G47.00 [facility] [id number] [place] [address], [place] [address]- 5321 Apr, [facility] [id number] [place] [address] 77776- 3928 Apr, Chronic pain G89.29 [facility] [id number] [place] [address], [place] [address]- 6470 Apr, [facility] [id number] [place] [address] 94002- 1003 Mar, [facility] [id number] [place] [address] 01609- 3699 Mar, Insomnia, unspecified type G47.00 [facility] [id number] [place] [address] 27873- 8167 Mar, Chronic pain G89.29 [facility] [id number] [address]- 5279 Mar, [facility] [id number] [place] [address] 30988- 9459 Feb, [facility] [address] [address]- 5320 Feb, [facility] [address] [address]- 1294 Feb, [facility] [id number] [address]- 4527 Feb, [facility] [id number] [place] [address] 05738- 5271 Feb, [facility] [id number] [address]- 7341 Jan, [facility] [id number] [place] [address] 93853- 7209 26 Jan, 2016 [facility] [id number] [place] [address] 57235- 6926 20 Jan, 2016 [facility] [id number] [place] [address] 70695- 1503 13 Jan, 2016 [facility] [id number] [place] [address] 76691- 4271 12 Jan, 2016 [facility] [id number] [place] [address] 25483- 3984 07 Jan, 2016 Chronic pain G89.29 [facility] [id number] [place] [address] 62340- 8991 Jan, Chronic pain G89.29 and Fibromyalgia M79.7 [facility] [id number] [place] [address] 53144- 5811 Dec, Depression, unspecified depression type F32.9 and Generalized anxiety disorder 300.02 [facility] [id number] [place] [address] 06203- 8655 Dec, Dysthymia F34.1 ; Insomnia, unspecified type G47.00 and Chronic pain G89.29 [facility] [id number] [place] [address] 62999- 7827 Dec, Chronic pain G89.29 [facility] [id number] [place] [address] 96219- 0583 Dec, Insomnia, unspecified type G47.00 [facility] [id number] [place] [address] 16116- 3015 Dec, Fibromyalgia M79.7 and Chronic pain G89.29 [facility] [id number] [place] [address] 92537- 8686 Dec, [facility] [id number] [place] [address] 66274- 0891 Dec, [facility] [id number] [address]- 6674 Dec, [facility] [id number] [place] [address] 80582- 7885 Dec, [facility] [id number] [place] [address] 34242- 5505 Dec, Chronic pain G89.29 [facility] [id number] [place] [address] 85465- 5837 Dec, [facility] [id number] [place] [address] 57376- 7422 Dec, [facility] [id number] [place] [address] 22657- 5014 Dec, [facility] [id number] [place] [address] 95261- 2217 Dec, Chronic pain G89.29 and Dysthymia F34.1 [facility] [id number] [place] [address] 70759- 3379 Nov, [facility] [id number] [place] [address] 05008- 8581 Nov, Hypokalemia E87.6 and Chronic pain G89.29 [facility] [id number] [place] [address] 06152- 8139 Nov, Back pain M54.9 and Pain in right knee M25.561 [facility] [id number] [place] [address] 47500- 5272 Nov, [facility] [id number] [place] [address] 16621- 1217 Nov, Chronic pain G89.29 [facility] [id number] [place] [address] 91832- 3025 Nov, Chronic pain G89.29 ; Weight loss R63.4 ; Bone pain M89.8X9 and Insomnia, unspecified type G47.00 [facility] [id number] [address]- 2017 Nov, Chronic pain G89.29 [facility] [address] [facility] [id number] [address] 2546 Nov, Chronic pain G89.29 [facility] [address] [address] 2546 30 Oct, 2015 Chronic pain G89.29 [facility] [address] [facility] [id number] [place] [address] 39925- 6595 Oct, UTI symptoms R39.9 [facility] [id number] [place] [address] 33748 2546 Oct, Chronic pain G89.29 [facility] [id number] [place] [address] 20269 2546 Oct, Chronic pain G89.29 [facility] [id number] [place] [address] 76719 2546 Oct, Chronic pain G89.29 [facility] [address] [address]- 3200 Oct, Right upper quadrant abdominal pain R10.11 [facility] [address] [address] 2542 Oct, Chronic pain G89.29 [facility] [address] [address] 2546 Oct, [facility] [address] [address] 254 September, Chronic pain G89.29 [facility] [address] [address] 2543 September, Dysuria R30.0 and Urinary tract infection without hematuria , site unspecified N39.0 [facility] [address] [address]- 3716 September, [facility] [id number] [place] [address] 77998- 9275 September, Dysuria R30.0 [facility] [id number] [place] [address] 17780- 4793 September, Chronic pain G89.29 [facility] [id number] [place] [address] 14226- 8402 September, Chronic pain G89.29 and Essential hypertension I10 [facility] [id number] [place] [address] 49043- 5600 September, [facility] [id number] [place] [address] 65861- 3353 September, [facility] [id number] [place] [address] 38961- 1311 September, [facility] [id number] [place] [address] 14469- 8422 Aug, UTI symptoms R39.9 [facility] [id number] [place] [address] 71899- 2883 Aug, Dysuria R30.0 [facility] [id number] [place] [address] 24214- 0405 Aug, [facility] [id number] [place] [address] 58122- 2714 Aug, [facility] [id number] [place] [address] 82411- 9618 Aug, [facility] [id number] [place] [address] 43862- 7629 Aug, Chronic pain G89.29 [facility] [id number] [place] [address] 10491- 8480 Aug, Dysthymia F34.1 [facility] [id number] [place] [phone] Aug, Conjunctivitis, unspecified conjunctivitis type, unspecified laterality H10.9 [facility] [address] [facility] [id number] [place] [address] 31 Jul, 2015 Chronic pain G89.29 ; Back pain M54.9 ; Tobacco abuse Z72.0 and Weight decrease R63.4 [facility] [address] [facility] [id number] [place] [address]46 30 Jul, 2015 [facility] [id number] [place] [address], [place] [id number]46 30 Jul, 2015 [facility] [address] [facility] [id number] [place] [address] 254 24 Jul, 2015 Chronic pain G89.29 [facility] [address] [id number] [place] [address] 22 Jul, 2015 [facility] [address] [id number] [place] [id number] 2546 21 Jul, 2015 [facility] [address] [id number] [address] 18 Jul, 2015 [facility] [address] [id number] [place] [address] 17 Jul, 2015 [facility] [address] [id number] [place] [address] 17 Jul, 2015 Chronic pain G89.29 [facility] [id number] [place] [address] 2546 16 Jul, 2015 Chronic pain G89.29 [facility] [id number] [place] [address] 254 15 Jul, 2015 [facility] [address] [id number] [place] [address] 2545 10 Jul, 2015 [facility] [address] [id number] [place] [address] 2546 07 Jul, 2015 [facility] [address] [id number] [place] [address] 2546 Jul, [facility] [id number] [place] [address] 87752- 7971 Jun, [facility] [address] [address]- 7242 Jun, Depression, unspecified depression type F32.9 [place] [id number] [place] [address] 87649- 7358 Jun, Pain in right knee M25.561 [place] [address] [address]- 2030 Jun, Chronic pain G89.29 ; Back pain M54.9 ; Bone pain M89.8X9 and Weight loss R63.4 [place] [address] [address]- 0488 Jun, [place] [address] 19160- 3307 May, [place] [address] 82596- 0026 May, UTI symptoms R39.9 ; Pain in right knee M25.561 ; Right low back pain, with sciatica presence unspecified M54.5 ; Right foot pain M79.671 ; Hypokalemia E87.6 and Screening, lipid Z13.220 [place] [id number] [place] [address] 02566- 7571 May, [place] [id number] [place] [address] 38401- 4083 May, [place] [id number] [place] [address] 15778- 3849 Mar, [place] [address] 79073- 2279 Mar, [place] [id number] [place] [address] 03352- 7881 Mar, Hypokalemia E87.6 [place] [address] [id number] [address]- 6354 Mar, Pain in right leg M79.604 ; Encounter for immunization Z23 ; Pain in right knee M25.561 and Hypokalemia E87.6 [facility] [address] [id number] [address] 5846 Jan, [facility] [id number] [place] [address]14 2546 Jan, [facility] [id number] [place] [address] 33292 2540 Jan, Abdominal pain, generalized 789.07 [facility] [id number] [place] [address] 98144- 1785 Jan, Abdominal pain, generalized 789.07 [facility] [id number] [place] [address] 76781- 3545 Dec, [facility] [id number] [place] [address] 63690- 9256 Dec, [facility] [id number] [place] [address] 25008- 3057 Dec, [facility] [id number] [place] [address] 70238- 0613 Nov, Hallux valgus 735.0 and Hammertoe 735.4 [facility] [address] [address]- 6768 Nov, [facility] [address] [address] 2544 Nov, Hallux valgus 735.0 and Hammer toe 735.4 [facility] [address] [address]- 2545 Oct, [facility] [id number] [address]- 5927 Oct, [facility] [address] [address]- 7856 Oct, Pre-op evaluation V72.84 [facility] [id number] [place] [address] 34053- 3975 Oct, [facility] [id number] [address]- 2246 Oct, [facility] [id number] [place] [address] 30483- 1796 September, [facility] [id number] [place] [address] 32870- 5501 September, [facility] [id number] [place] [address] 73770- 4425 September, Hallux valgus (acquired) 735.0 and Other hammer toe ( acquired) 735.4 [facility] [id number] [place] [address] 47564- 8037 Aug, [facility] [address] [address]- 5695 Aug, [facility] [id number] [place] [address] 21671- 8907 Jul, [facility] [address] [address]- 8797 Jul, [facility] [address] [address]- 7766 Jul, [facility] [address] [address]- 3922 Jul, [facility] [id number] [place] [address] 52982- 2763 Jul, [facility] [address] [address]- 2546 Jul, [facility] [address] [address]- 5149 Jul, [facility] [place] [facility] [address] [id number] [place] [address]- 4622 Jul, [facility] [place] [facility] [address] [id number] [place] [address]- 2056 Jun, [facility] [place] [facility] [address] [id number] [place] [address]- 8306 Jun, [facility] [place] [facility] [address] [id number] [place] [address]- 7994 Jun, [facility] [place] [facility] [address] [id number] [place] [address]- 1180 Jun, [facility] [place] [facility] [address] [id number] [place] [address]- 0063 Jun, [facility] [place] [facility] [address] [id number] [place] [address]- 1874 Jun, [facility] [place] [facility] [address] [id number] [place] [address]- 5854 Jun, [facility] [place] [facility] [address] [id number] [place] [address]- 3445 Jun, [facility] [place] [facility] [address] [facility] [id number] [place] [address]- 8748 Jun, [facility] [place] [facility] [address] [id number] [place] [address]- 1711 Jun, [facility] [place] [facility] [address] [id number] [place] [address]- 0501 May, [facility] [place] [facility] [address] [id number] [place] [address]- 6083 May, [facility] [place] [facility] [address] [facility] [id number] [place] [address]- 9124 May, [facility] [place] [facility] [address] [facility] [id number] [place] [address]- 7380 May, [facility] [place] [facility] [address] [id number] [place] [address]- 0902 May, [facility] [address] [id number] [place] [address]- 0611 May, [facility] [address] [id number] [place] [address]- 0938 May, [facility] [address] [id number] [place] [address]- 7357 May, [facility] [address] [id number] [place] [address]- 9472 May, [facility] [address] [id number] [place] [address]- 1014 May, [facility] [address] [id number] [place] [address]- 8339 May, [facility] [address] [id number] [place] [address]- 5843 May, [facility] [address] [id number] [place] [address]- 3707 May, [facility] [address] [id number] [place] [address]- 6602 May, [facility] [address] [id number] [place] [address]- 5147 May, [facility] [address] [id number] [place] [address]- 1494 May, [facility] [address] [id number] [place] [address]- 9970 May, [facility] [place] [facility] [address] [id number] [place] [address]- 8396 May, [facility] [address] [id number] [place] [address]- 6214 Apr, [facility] [address] [id number] [place] [address]- 1261 Apr, [facility] [place] [facility] [address] [id number] [place] 7027 Apr, [facility] [place] [facility] [address] [id number] [place] 1475 Apr, [facility] [place] [facility] [address] [id number] [place] 0769 Apr, [facility] [place] [facility] [address] [id number] [place] [address]- 9909 Apr, [facility] [place] [facility] [address] [id number] [place] 1199 Apr, [facility] [place] [facility] [address] [id number] [place] [address]- 3842 Apr, [facility] [place] [facility] [address] [id number] [place] [address]- 9841 Apr, [facility] [place] [facility] [address] [id number] [place] [address]- 0192 Mar, [facility] [place] [facility] [address] [id number] [place] [address]- 3851 Mar, [facility] [place] [facility] [address] [id number] [place] [address]- 0316 Mar, [facility] [place] [facility] [address] [id number] [place] [address]- 0615 Mar, [facility] [place] [facility] [address] [id number] [place] [address]- 2502 Mar, [facility] [place] [facility] [address] [id number] [place] [address]- 0444 Feb, [facility] [place] [facility] [address] [id number] [place] [address]- 6026 Feb, [facility] [place] [facility] [address] [id number] [place] 8330 Feb, [facility] [place] [facility] [address] [id number] [address]- 9452 Feb, 2013 [facility] [place] [facility] [address] [id number] [place] [address]- 6088 16 Feb, 2013 [facility] [place] [facility] [address] [id number] [place] [address]- 5096 16 Feb, 2013 [facility] [place] [facility] [address] [id number] [place] [address]- 2606 Feb, 2013 [facility] [place] [facility] [address] [id number] [place] [address]- 5997 Feb, 2013 [facility] [place] [facility] [address] [id number] [place] [address]- 6921 Feb, 2013 [facility] [place] [facility] [address] [id number] [place] [address]- 2730 Feb, 2013 [facility] [place] [facility] [address] [id number] [place] [address]- 1858 Feb, 2013 [facility] [place] [facility] [address] [id number] [place] [address]- 2759 Feb, 2013 [facility] [place] [facility] [address] [id number] [place] [address]- 2776 Feb, 2013 [facility] [place] [facility] [address] [id number] [place] [address]- 9992 Feb, 2013 [facility] [place] [facility] [address] [id number] [place] [address]- 7773 Feb, 2013 [facility] [place] [facility] [address] [id number] [place] [address]- 9294 Feb, 2013 [facility] [place] [facility] [address] [id number] [place] [address]- 9572 Jan, 2013 [facility] [place] [facility] [address] [id number] [place] [address]- 5391 23 Jan, 2013 [facility] [place] [facility] [address] [id number] [place] [address]- 2235 20 Jan, 2013 [facility] [place] [facility] [address] [id number] [place] [address]- 4295 19 Jan, 2013 [facility] [place] [facility] [address] [id number] [place] [address]- 1836 Jan, 2013 [facility] [place] [facility] [address] [id number] [place] [address]- 4206 Jan, 2013 [facility] [place] [facility] [address] [id number] [place] [address]- 6816 Jan, [facility] [place] [facility] [address] [id number] [place] [address]- 8808 Jan, [facility] [place] [facility] [address] [id number] [place] [address]- 0852 Dec, [facility] [place] [facility] [address] [id number] [place] [address]- 2431 Dec, [facility] [place] [facility] [address] [id number] [place] [address]- 9377 Nov, [facility] [place] [facility] [address] [id number] [place] [address]- 1820 Nov, [facility] [place] [facility] [address] [id number] [place] [address]- 2394 Nov, [facility] [place] [facility] [address] [id number] [place] [address]- 4002 Nov, [facility] [place] [facility] [address] [id number] [place] [address]- 4852 Nov, [facility] [place] [facility] [address] [id number] [place] [address]- 1422 Nov, [facility] [place] [facility] [address] [id number] [place] [address]- 1326 Nov, [facility] [place] [facility] [address] [id number] [place] [address]- 8880 Nov, [facility] [place] [facility] [address] [id number] [place] [address]- 2034 Nov, [facility] [place] [facility] [address] [id number] [place] 9675 Oct, [facility] [place] [facility] [address] [id number] [place] [address]- 7476 Oct, [facility] [place] [facility] [address] [id number] [place] [address]- 5504 Oct, [facility] [place] [facility] [address] [id number] [place] [address]- 2379 Oct, [facility] [place] [facility] [address] [id number] [place] [address]- 8517 Oct, [facility] [place] [facility] [address] [id number] [place] [address]- 3617 Oct, [facility] [place] [facility] [address] [id number] [place] [address]- 3642 September, [facility] [place] [facility] [address] [id number] [place] [address]- 0670 September, [facility] [place] [facility] [address] [id number] [place] [address]- 3347 September, [facility] [place] [facility] [address] [id number] [place] [address]- 9525 September, [facility] [place] [facility] [address] [id number] [place] [address]- 7230 September, [facility] [place] [facility] [address] [id number] [place] [address]- 5869 September, [facility] [place] [facility] [address] [id number] [place] [address]- 1545 September, [facility] [place] [facility] [address] [id number] [place] [address]- 8219 September, [facility] [place] [facility] [address] [id number] [place] [address]- 1749 September, [facility] [place] [facility] [address] [id number] [place] [address]- 6968 September, [facility] [address] [id number] [place] [address]- 4603 September, [facility] [place] [facility] [address] [id number] [place] [address]- 8363 September, [facility] [address] [id number] [place] [address]- 9108 September, [facility] [place] [facility] [address] [id number] [place] [address]- 5973 September, [facility] [place] [facility] [address] [id number] [place] [address]- 4156 September, [facility] [place] [facility] [address] [id number] [place] [address]- 3856 September, [facility] [address] [id number] [place] [address]- 8407 September, [facility] [address] [id number] [place] [address]- 4632 September, [facility] [place] [facility] [address] [id number] [place] [address]- 7669 September, [facility] [address] [id number] [place] [address]- 0394 September, [facility] [place] [facility] [address] [id number] [place] [address]- 0377 Aug, [facility] [place] [facility] [address] [id number] [place] [address]- 3502 Aug, [facility] [place] [facility] [address] [id number] [place] [address]- 2676 Aug, [facility] [place] [facility] [address] [id number] [place] [address]- 9245 Aug, [facility] [place] [facility] [address] [id number] [place] [address]- 5269 Aug, [facility] [place] [facility] [address] [id number] [place] [address]- 6972 18 Aug, 2013 [facility] [place] [facility] [address] [id number] [place] [address]- 9523 16 Aug, 2013 [facility] [place] [facility] [address] [id number] [place] [address]- 8192 16 Aug, 2013 [facility] [place] [facility] [address] [id number] [place] [address]- 2578 15 Aug, 2013 [facility] [place] [facility] [address] [id number] [place] [address]- 0985 15 Aug, 2013 [facility] [place] [facility] [address] [id number] [place] [address]- 7001 14 Aug, 2013 [facility] [place] [facility] [address] [id number] [place] [address]- 8600 Aug, [facility] [place] [facility] [address] [id number] [place] [address]- 8043 Aug, [facility] [place] [facility] [address] [id number] [place] [address]- 2907 Aug, [facility] [place] [facility] [address] [id number] [place] [address]- 6634 Aug, [facility] [place] [facility] [address] [id number] [place] [address]- 4198 Jul, [facility] [place] [facility] [address] [id number] [place] [address]- 7984 31 Jul, 2013 [facility] [place] [facility] [address] [id number] [place] [address]- 7273 Jul, [facility] [place] [facility] [address] [id number] [place] [address]- 9589 27 Jul, 2013 [facility] [place] [facility] [address] [id number] [place] [address]- 3768 20 Jul, 2013 [facility] [place] [facility] [address] [id number] [place] [address]- 4795 Jul, [facility] [place] [facility] [address] [id number] [place] [address]- 8112 Jul, [facility] [place] [facility] [address] [id number] [place] [address]- 9545 Jul, [facility] [place] [facility] [address] [id number] [place] [address]- 2658 Jul, [facility] [place] [facility] [address] [id number] [place] [address]- 3160 Jul, [facility] [place] [facility] [address] [id number] [place] [address]- 7656 Jul, [facility] [place] [facility] [address] [id number] [place] [address]- 9867 Jul, [facility] [place] [facility] [address] [facility] [id number] [place] [address]- 7978 Jul, [facility] [place] [facility] [address] [id number] [place] [address]- 7646 Jul, [facility] [place] [facility] [address] [id number] [place] [address]- 6832 Jul, [facility] [place] [facility] [address] [facility] [id number] [place] [address]- 6873 Jun, [facility] [place] [facility] [address] [id number] [place] [address]- 2380 Jun, [facility] [place] [facility] [address] [id number] [place] [address]- 4859 Jun, [facility] [place] [facility] [address] [id number] [place] [address]- 4319 Jun, [facility] [place] [facility] [address] [id number] [place] [address]- 5386 Jun, [facility] [place] [facility] [address] [facility] [id number] [place] [address]- 3210 Jun, [facility] [place] [facility] [address] [id number] [place] [address] May, [facility] [place] [facility] [address] [id number] [place] [address] May, [facility] [place] [facility] [address] [id number] [place] [address] May, [facility] [place] [facility] [address] [id number] [place] [address] May, [facility] [place] [facility] [address] [id number] [place] [address] May, [facility] [place] [facility] [address] [id number] [place] [address] May, [facility] [place] [facility] [address] [id number] [place] [address] May, [facility] [place] [facility] [address] [id number] [place] [address] May, [facility] [place] [facility] [address] [id number] [place] [address] May, [facility] [place] [facility] [address] [id number] [place] [address]- [address] May, [facility] [place] [facility] [address] [id number] [place] [address] May, [facility] [place] [facility] [address] [id number] [place] [address]- [address] May, [facility] [place] [facility] [address] [id number] [place] [address] May, [facility] [place] [facility] [address] [id number] [place] [address]- [address] May, [facility] [place] [facility] [address] [id number] [place] [address]- 6[address] May, [facility] [place] [facility] [address] [id number] [place] [address] Apr, [facility] [place] [facility] [address] [id number] [place] [address]- [address] Apr, [facility] [place] [facility] [address] [id number] [place] [address]- [address] Apr, [facility] [place] [facility] [address] [id number] [place] [address]- [address] Apr, [facility] [place] [facility] [address] [id number] [place] [address]- [address] Apr, [facility] [place] [facility] [address] [id number] [place] [address]- [address]184 Apr, [facility] [place] [facility] [address] [id number] [place] [address] 2001 Apr, [facility] [place] [facility] [address] [id number] [place] [address]- [address]90 Apr, [facility] [place] [facility] [address] [id number] [place] [address]- [address] Apr, [facility] [place] [facility] [address] [id number] [place] [address]- [address] Apr, [facility] [place] [facility] [address] [id number] [place] [address]- [address]147 Mar, [facility] [place] [facility] [address] [id number] [place] [address] Mar, [facility] [place] [facility] [address] [id number] [place] [address] Mar, [facility] [place] [facility] [address] [id number] [place] [address]689 Mar, [facility] [place] [facility] [address] [id number] [place] [address]- [address]40 Mar, [facility] [place] [facility] [address] [id number] [place] [address]- [address] Mar, [facility] [place] [facility] [address] [id number] [place] [address] Mar, [facility] [address] [id number] [place] [address] Mar, [facility] [address] [id number] [place] [address]88 Mar, [facility] [address] [id number] [place] [address] Mar, [facility] [address] [id number] [place] [address]- [address] Mar, [facility] [address] [id number] [place] [address]- [address]34 Mar, [facility] [address] [id number] [place] [address]- [address] Mar, [facility] [address] [id number] [place] [address]- [address] Mar, [facility] [address] [id number] [place] [address] 1664 Mar, [facility] [address] [id number] [place] [address]- 365[address] Mar, [facility] [address] [id number] [place] [address] Mar, [facility] [address] [id number] [place] [address]- [address] 14 Mar, 2013 [facility] [address] [id number] [place] [address]- [address]10 Mar, [facility] [place] [facility] [address] [id number] [place] [address]- [address]32 Mar, [facility] [place] [facility] [address] [id number] [place] [address]- 6438 Mar, [facility] [address] [id number] [place] [address]- 9499 Mar, [facility] [place] [facility] [address] [id number] [place] [address]- 4295 Mar, [facility] [place] [facility] [address] [id number] [place] [address]- [address]646 Feb, [facility] [place] [facility] [address] [id number] [place] [address]- 8516 Feb, [facility] [place] [facility] [address] [id number] [place] [address]- 5716 Feb, [facility] [place] [facility] [address] [id number] [place] [address]- 7919 Feb, [facility] [place] [facility] [address] [id number] [place] [address]- [address] 15 Feb, 2013 [facility] [place] [facility] [address] [id number] [place] [address]- 98[address] Feb, [facility] [place] [facility] [address] [id number] [place] [address]- [address] Feb, [facility] [place] [facility] [address] [id number] [place] [address]- [address] Feb, [facility] [place] [facility] [address] [id number] [place] [address]- [address] Feb, [facility] [place] [facility] [address] [id number] [place] [address] Feb, [facility] [place] [facility] [address] [id number] [place] [address]- [address] 30 Jan, 2013 [facility] [place] [facility] [address] [id number] [place] [address]- [address] 26 Jan, 2012 [facility] [place] [facility] [address] [id number] [place] [address] 24 Jan, 2013 [facility] [place] [facility] [address] [id number] [address] 23 Jan, 2012 [facility] [place] [facility] [address] [id number] [place] [address] Jan, [facility] [address] [id number] [place] [address] Dec, [facility] [place] [facility] [address] [id number] [place] [address] 9510 Dec, [facility] [place] [facility] [address] [id number] [place] [address]- 2981 Dec, [facility] [place] [facility] [address] [id number] [place] [address]- 4947 Dec, [facility] [place] [facility] [address] [id number] [place] [address]- 6283 Dec, [facility] [place] [facility] [address] [id number] [place] [address]- 4209 Dec, [facility] [place] [facility] [address] [id number] [place] [address]- 2941 Dec, [facility] [place] [facility] [address] [id number] [place] [address]- 2249 Nov, [facility] [place] [facility] [address] [id number] [place] [address]- 6011 Nov, [facility] [place] [facility] [address] [id number] [place] [address]- 3074 Nov, [facility] [place] [facility] [address] [id number] [place] [address]- 5590 Nov, [facility] [place] [facility] [address] [id number] [place] [address]- 0182 Nov, [facility] [place] [facility] [address] [id number] [place] [address]- 6558 Oct, [facility] [place] [facility] [address] [id number] [place] [address]- 6162 Oct, [facility] [place] [facility] [address] [id number] [place] [address]- 9586 Oct, [facility] [place] [facility] [address] [id number] [place] [address]- 9462 September, [facility] [address] [id number] [place] [address] 3[address] September, [facility] [address] [id number] [place] [address]- 3326 September, [facility] [address] [id number] [place] [address]- 5066 September, [facility] [address] [id number] [place] [address]- 7198 September, [facility] [address] [id number] [place] [address]- 0696 September, [facility] [address] [id number] [place] [address]- 9546 September, [facility] [address] [id number] [place] [address]- 3004 30 Aug, 2012 [facility] [address] [id number] [place] [address]- 5900 Aug, [facility] [address] [id number] [place] [address]- 3668 Aug, [facility] [address] [id number] [place] [address]- 3272 29 Jul, 2012 [facility] [address] [id number] [place] [address]- 6346 27 Jul, 2012 [facility] [address] [id number] [place] [address]- 0158 Jul, [facility] [place] [facility] [address] [id number] [place] [address]- 8466 20 Jul, 2012 [facility] [place] [facility] [address] [id number] [place] [address]- 6706 18 Jul, 2012 [facility] [place] [facility] [address] [id number] [place] [address]- 9738 Jul, [facility] [address] [id number] [place] [address]- 5607 Jul, [facility] [address] [id number] [place] [address]- 8766 Jun, [facility] [address] [facility] [id number] [place] [address]- 0056 Jun, [facility] [place] [facility] [address] [id number] [place] [address]- 7781 Jun, [facility] [address] [id number] [place] [address]- 5349 Jun, [facility] [address] [facility] [id number] [place] [address]- 4007 Jun, [facility] [address] [facility] [id number] [place] [address]- 6747 Jun, [facility] [place] [facility] [address] [id number] [place] [address]- 6309 Jun, [facility] [address] [facility] [id number] [place] [address]- 0920 Jun, [facility] [place] [facility] [address] [facility] [id number] [place] [address]- 0802 Jun, [facility] [place] [facility] [address] [facility] [id number] [place] [address]- 4476 Jun, [facility] [place] [facility] [address] [facility] [id number] [place] [address]- 8322 May, [facility] [place] [facility] [address] [id number] [place] [address]- 4695 May, [facility] [place] [facility] [address] [facility] [id number] [place] [address]- 8205 May, [facility] [place] [facility] [address] [facility] [id number] [place] [address]- 4868 May, [facility] [place] [facility] [address] [id number] [place] [address]- 8078 15 May, 2012 [facility] [place] [facility] [address] [id number] [place] [address]- 0486 07 May, 2012 [facility] [place] [facility] [address] [id number] [place] [address]- 8086 31 Apr, 2012 [facility] [place] [facility] [address] [id number] [place] [address]- 0826 31 Apr, 2012 [facility] [place] [facility] [address] [id number] [place] [address]- 9024 Apr, [facility] [place] [facility] [address] [id number] [place] [address]- 8159 Apr, [facility] [place] [facility] [address] [id number] [place] [address]- 6569 Apr, [facility] [place] [facility] [address] [id number] [place] [address]- 9485 Apr, [facility] [place] [facility] [address] [id number] [place] [address]- 2325 Apr, [facility] [place] [facility] [address] [id number] [place] [address]- 0437 29 Mar, 2012 [facility] [place] [facility] [address] [id number] [place] [address]- 7617 29 Mar, 2012 [facility] [place] [facility] [address] [id number] [place] [address]- 3489 27 Mar, 2012 [facility] [place] [facility] [address] [id number] [place] [address] 2544 Mar, [facility] [place] [facility] [address] [id number] [place] [address] 2546 Mar, [facility] [place] [facility] [address] [id number] [place] [address]- 2548 18 Mar, 2012 [facility] [place] [facility] [address] [id number] [place] [address]- 7806 Mar, [facility] [place] [facility] [address] [id number] [place] [address]- 7758 Mar, [facility] [place] [facility] [address] [id number] [place] [address]- 5616 Mar, [facility] [place] [facility] [address] [facility] [id number] [place] [address]- 7339 Mar, [facility] [place] [facility] [address] [id number] [place] [address]- 1173 Mar, [facility] [place] [facility] [address] [id number] [place] [address]- 7713 Mar, [facility] [place] [facility] [address] [id number] [place] [address]- 2491 Mar, [facility] [place] [facility] [address] [facility] [id number] [place] [address]- 7780 Mar, [facility] [place] [facility] [address] [id number] [place] [address]- 8632 Mar, [facility] [place] [facility] [address] [id number] [place] [address]- 2519 Mar, [facility] [place] [facility] [address] [facility] [id number] [place] [address]- 0628 Mar, [facility] [place] [facility] [address] [id number] [place] [address]- 7535 Feb, [facility] [place] [facility] [address] [id number] [place] [address]- 8039 Feb, [facility] [place] [facility] [address] [id number] [place] [address]- 5489 Feb, [facility] [place] [facility] [address] [facility] [id number] [place] [address]- 6215 Feb, [facility] [place] [facility] [address] [facility] [id number] [place] [address]- 2598 Feb, [facility] [place] [facility] [address] [id number] [place] [address]- 7111 16 Feb, 2012 [facility] [place] [facility] [address] [id number] [place] [address]- 4238 Feb, [facility] [place] [facility] [address] [id number] [place] [address]- 8906 11 Feb, 2012 [facility] [place] [facility] [address] [id number] [place] [address]- 0529 05 Feb, 2012 [facility] [place] [facility] [address] [id number] [place] [address]- 3511 04 Feb, 2012 [facility] [place] [facility] [address] [id number] [place] [address]- 6555 02 Feb, 2012 [facility] [place] [facility] [address] [id number] [place] [address]- 2570 27 Jan, 2012 [facility] [place] [facility] [address] [id number] [place] [address]- 6992 25 Jan, 2012 [facility] [place] [facility] [address] [id number] [place] [address]- 5658 13 Jan, 2012 [facility] [place] [facility] [address] [id number] [place] [address]- 6176 12 Jan, 2012 [facility] [place] [facility] [address] [id number] [place] [address]- 8991 07 Jan, 2012 [facility] [place] [facility] [address] [id number] [place] [address]- 7077 31 Dec, 2011 [facility] [place] [facility] [address] [id number] [place] [address]- 0055 24 Dec, 2011 [facility] [place] [facility] [address] [id number] [place] [address]- 8642 Dec, [facility] [place] [facility] [address] [id number] [place] [address]- 6753 18 Dec, 2011 [facility] [place] [facility] [address] [id number] [place] [address]- 4877 Dec, [facility] [place] [facility] [address] [id number] [place] [address]- 5464 Dec, [facility] [place] [facility] [address] [id number] [place] [address]- 5007 Dec, [facility] [place] [facility] [address] [id number] [place] [address]- 2546 Dec, [facility] [place] [facility] [address] [id number] [place] [address]- 6245 Nov, [facility] [address] [id number] [place] [address]- 7935 Nov, [facility] [place] [facility] [address] [id number] [place] [address]- 5641 Nov, [facility] [address] [id number] [place] [address]- 6478 Nov, [facility] [address] [id number] [place] [address]- 1525 Nov, [facility] [address] [id number] [place] [address]- 3980 Oct, [facility] [place] [facility] [address] [id number] [place] [address]- 1167 Oct, [facility] [place] [facility] [address] [id number] [place] [address]- 2146 September, [facility] [place] [facility] [address] [id number] [place] [address]- 5435 September, [facility] [place] [facility] [address] [id number] [place] [address]- 9700 September, [facility] [place] [facility] [address] [id number] [place] [address]- 4066 September, [facility] [place] [facility] [address] [id number] [place] [address]- 2546 September, [facility] [place] [facility] [address] [id number] [place] [address]- 0457 September, [facility] [address] [id number] [place] [address]- 9473 September, [facility] [place] [facility] [address] [id number] [place] [address]- 5943 September, [facility] [address] [id number] [place] [address]- 6174 September, [facility] [place] [facility] [address] [id number] [place] [address]- 9000 September, [facility] [address] [id number] [place] [address]- 3540 September, [facility] [place] [facility] [address] [id number] [place] [address]- 8278 September, [facility] [address] [id number] [place] [address]- 2864 September, [facility] [place] [facility] [address] [id number] [place] [address]- 7849 September, [facility] [address] [id number] [place] [address]- 4919 24 Aug, 2011 [facility] [place] [facility] [address] [id number] [place] [address]- 5445 Aug, [facility] [place] [facility] [address] [id number] [place] [address]- 4049 Aug, [facility] [place] [facility] [address] [id number] [place] [address]- 7570 Aug, [facility] [place] [facility] [address] [id number] [place] [address]- 9863 Jul, [facility] [place] [facility] [address] [id number] [place] [address]- 9791 Jul, [facility] [place] [facility] [address] [id number] [place] [address]- 6064 Jul, [facility] [place] [facility] [address] [id number] [place] [address]- 4908 28 Jun, 2011 [facility] [address] [id number] [place] [id number] 26 Jun, 2011 [facility] [address] [facility] [id number] [place] [address]- 2546 13 Jun, 2011 [facility] [address] [id number] [place] [address]- 7946 10 Jun, 2011 [facility] [address] [id number] [place] [address] 2548 07 Jun, 2011 [facility] [address] [id number] [place] [address]- 6756 07 Jun, 2011 [facility] [address] [id number] [place] [address]- 2543 03 Jun, 2011 [facility] [address] [id number] [place] [address]- 0893 02 Jun, 2011 [facility] [address] [id number] [place] [address]- 9608 May, [facility] [address] [id number] [place] [address]- 7955 May, [facility] [address] [id number] [place] [address]- 6883 May, [facility] [address] [id number] [place] [address]- 1486 May, [facility] [address] [id number] [place] [address]- 2547 May, [facility] [place] [facility] [address] [facility] [id number] [place] [address]- 2544 May, [facility] [place] [facility] [address] [facility] [id number] [place] [address]- 2549 May, [facility] [address] [id number] [place] [address]- 2477 May, [facility] [place] [facility] [address] [id number] [place] [address]- 2778 May, [facility] [place] [facility] [address] [id number] [place] [address]- 7979 May, [facility] [place] [facility] [address] [id number] [place] [address]- 6830 17 May, 2011 [facility] [place] [facility] [address] [id number] [place] [address]- 0149 13 May, 2011 [facility] [place] [facility] [address] [id number] [place] [address]- 9978 May, [facility] [place] [facility] [address] [id number] [place] [address]- 9531 May, [facility] [place] [facility] [address] [id number] [place] [address]- 5847 Apr, [facility] [place] [facility] [address] [id number] [place] [address]- 8555 Apr, [facility] [place] [facility] [address] [id number] [place] [address]- 5955 Apr, [facility] [place] [facility] [address] [id number] [place] [address]- 3496 Mar, [facility] [place] [facility] [address] [id number] [place] [address]- 4147 Mar, [facility] [place] [facility] [address] [id number] [place] [address]- 6559 Feb, [facility] [place] [facility] [address] [id number] [place] [address]- 5083 Feb, [facility] [place] [facility] [address] [id number] [place] [address]- 9180 Feb, [facility] [place] [facility] [address] [id number] [place] [address]- 2627 Feb, [facility] [place] [facility] [address] [id number] [place] [address]- 6896 13 Feb, 2011 [facility] [place] [facility] [address] [id number] [place] [address]- 8746 28 Apr, 2010 [facility] [place] [facility] [address] [id number] [place] [address] 2546 22 Apr, 2010 [facility] [place] [facility] [address] [id number] [place] [address] 2546 16 Apr, 2010 [facility] [place] [facility] [address] [id number] [place] [address] 2546 15 Apr, 2010 [facility] [place] [facility] [address] [id number] [place] [address] 2546 15 Apr, 2010 [facility] [place] [facility] [address] [id number] [place] [address] 2546 Apr, [facility] [place] [facility] [address] [id number] [place] [address]- 8395 24 Mar, 2010 [facility] [place] [facility] [address] [id number] [place] [address] 2549 17 Mar, 2010 [facility] [place] [facility] [address] [id number] [place] [address]- 5716 17 Mar, 2010 [facility] [place] [facility] [address] [id number] [place] [address] 2545 28 Feb, 2010 [facility] [place] [facility] [address] [id number] [place] [address] 2546 22 Feb, 2010 [facility] [place] [facility] [address] [id number] [place] [address] 2548 Feb, [facility] [place] [facility] [address] [id number] [place] [address] 2546 15 Feb, 2010 [facility] [place] [facility] [address] [id number] [place] [address] 2546 18 Dec, 2009 [facility] [place] [facility] [address] [id number] [place] [address] 2547 Dec, [facility] [address] [facility] [id number] [place] [address]- 9137 15 Oct, 2009 [facility] [address] [facility] [id number] [place] [address]- 5975 Mar, [facility] [address] [facility] [id number] [place] [address]- 1245 Mar, [facility] [address] [facility] [id number] [place] [address]- 3601 September, IMMUNIZATIONS No Known Immunizations SOCIAL HISTORY Never Assessed REASON FOR VISIT Pain PLAN OF CARE VITAL SIGNS MEDICATIONS Unknown [...]
--- OUTSIDE RECORDS SUMMARY | 2017-11-27 15:54 | XMS REPORT ---
Author Author VALERIE ZAVALA [facility] Address [address] [place] [address] Care Team Providers Care Pond Tender Name Role Phone VALERIE ZAVALA Unavailable PROBLEMS Type Condition ICD9-CM Code TSS03-TP Code Onset Dates Condition Status SNOMED Code Problem Generalized anxiety disorder F41.1 Active 93854805 Problem Hypokalemia E87.6 Active 070184916 Problem Right low back pain, with sciatica presence unspecified M54.5 Active 220148011 Problem Post-traumatic stress disorder, chronic F43.12 Active 55344321 Problem Pain in right knee M25.561 Active 04254656 Problem Gastroesophageal reflux disease without esophagitis K21.9 Active 059689418 Problem UTI symptoms R39.9 Active 01788362 Problem Essential hypertension I10 Active 09550250 Problem Anxiety F41.9 Active 54221619 Problem Neuropathy G62.9 Active 945827354 Problem Other chronic pain G89.29 Active 20949819 Problem Generalized abdominal pain R10.84 Active 429991773 Problem Chronic pain G89.29 Active 83587376 Problem Back pain M54.9 Active 708676574 Problem Right foot pain M79.671 Active 41980672 Problem Panic attacks F41.0 Active 653168924 Problem Other emphysema J43.8 Active 14785831 Problem Kidney stones N20.0 Active 20483420 Problem Renal calculus, right N20.0 Active 49296918 Problem Weight decrease R63.4 Active 120442519 Problem Tobacco abuse Z72.0 Active 07508011 Problem Bone pain M89.8X9 Active 43575886 Problem Depression, unspecified depression type F32.9 Active 04931033 Problem Insomnia, unspecified type G47.00 Active 649660343 Problem Pulmonary emphysema, unspecified emphysema type J43.9 Active 39925682 Problem Right upper quadrant abdominal pain R10.11 Active 543693293 Problem Weight loss R63.4 Active 775079062 ALLERGIES No Information ENCOUNTERS Encounter Location Date Diagnosis [facility] [id number] [address] Nov, [facility] [id number] [place] [address] 25775- 3874 Oct, [facility] [id number] [place] [address] 48315- 9300 Oct, Medicare welcome exam Z00.00 [facility] [id number] [place] [address] 56774- 6441 September, Back pain M54.9 and Right anterior knee pain M25.561 [facility] [id number] [place] [address] 21380- 9369 September, [facility] [id number] [place] [address] 11697- 6031 September, [facility] [id number] [place] [address] 29139- 8040 September, Essential hypertension I10 [facility] [id number] [place] [address] 90817- 5146 September, [facility] [id number] [place] [address] 11088- 5074 September, RLQ abdominal pain R10.31 ; Low back pain M54.5 and Other chronic pain G89.29 [facility] [id number] [place] [address] 01121- 2885 Aug, Medicare welcome exam Z00.00 [facility] [id number] [place] [address] 23709- 2395 Aug, [facility] [id number] [place] [address] 26193- 2462 Aug, Acute pyelonephritis N10 and Medicare welcome exam Z00.00 [facility] [id number] [place] [address] 72401 -9615 Aug, Dysuria R30.0 and Acute pyelonephritis N10 [facility] [address], [place] [address] 9275 Aug, [facility] [id number] [place] [address] 12942- 0946 Aug, [facility] [id number] [place] [address] 36845- 1873 Aug, [facility] [id number] [place] [address] 11256- 2304 Aug, [facility] [id number] [place] [address] 85738- 8144 Jul, [facility] [id number] [place] [address] 47138- 2632 Jul, Renal calculus, right N20.0 and Medicare welcome exam Z00.00 [facility] [id number] [place] [address] 66354 -2967 Jul, Dysuria R30.0 and Renal calculus, right N20.0 [facility] [id number] [place] [address] 60265- 2705 Jul, Medicare welcome exam Z00.00 [facility] [id number] [place] [address] 83635- 3893 13 Jun, 2017 Gastroesophageal reflux disease without esophagitis K21.9 and Generalized abdominal pain R10.84 [facility] [id number], [place] [address] 2625 Jun, Medicare welcome exam Z00.00 [facility] [id number] [place] [address] 46558- 9104 Jun, [facility] [id number] [place] [address] 59415- 4303 05 Jun, 2017 Medicare welcome exam Z00.00 and Encounter for screening mammogram for malignant neoplasm of breast Z12.31 [address] [id number] [place] [address] 13324- 6756 Jun, Chronic pain G89.29 [facility] [id number] [place] [address] 05769- 9030 May, [facility] [id number] [place] [address] 69094- 1968 May, Pelvic pain R10.2 [facility] [id number] [place] [address] 96961- 8903 May, Pelvic pain R10.2 [facility] [id number] [place] [address] 41944 -0473 May, Renal calculus, right N20.0 [facility] [id number] [place] [address] 52097- 1312 May, Hematuria, unspecified type R31.9 and Nephrolithiasis N20.0 [facility] [id number] [place] [address] 40232 -1865 May, Dysuria R30.0 and Nephrolithiasis N20.0 [facility] [id number] [place] [address] 66881- 5538 May, [facility] [id number] [place] [address] 90026 -9521 May, Abdominal pain R10.9 and Kidney stone N20.0 [facility] [id number] [place] [address] 80786- 7352 May, [facility] [id number] [place] [address] 22693- 5746 May, Chronic pain G89.29 and Panic attacks F41.0 [facility] [id number] [place] [address] 75149- 6537 May, Urinary tract infection without hematuria, site unspecified N39.0 [facility] [id number] [place] [address] 92572- 4601 Apr, Right lower quadrant abdominal pain R10.31 and Abnormal serum lipase level R74.8 [facility] [id number] [place] [address] 67632- 5701 Apr, Recurrent urinary tract infection N39.0 [facility] [id number] [place] [address] 44854- 1626 Apr, UTI symptoms R39.9 ; Recurrent urinary tract infection N39.0 and Pelvic pain R10.2 [facility] [id number] [place] [address] 01044- 7636 Apr, Chronic pain G89.29 and Panic attacks F41.0 [facility] [id number] [place] [address] 90076- 2086 Apr, Dysuria R30.0 [facility] [id number] [place] [address] 08266- 1256 Apr, [facility] [id number] [place] [address] 50427- 7527 Apr, Dysuria R30.0 and Urinary tract infection without hematuria , site unspecified N39.0 [facility] [id number] [place] [address] 16260- 0771 Mar, UTI symptoms R39.9 [facility] [id number] [place] [address] 13614- 8386 Mar, [facility] [id number] [place] [address] 68702- 3648 Mar, Panic attacks F41.0 and Chronic pain G89.29 [facility] [id number] [place] [address] 12693- 4555 Mar, [facility] [id number] [place] [address] 77160- 2729 Mar, Dysuria R30.0 [facility] [id number] [place] [address] 50875- 9813 Mar, Dysuria R30.0 [facility] [id number] [place] [address] 14974- 6891 Feb, Chronic pain G89.29 ; Shortness of breath R06.02 ; Weight loss R63.4 ; Encounter for immunization Z23 ; Bone pain M89.8X9 ; Right anterior knee pain M25.561 and Cough R05 [facility] [address] 71746- 0229 Feb, Shortness of breath R06.02 [place] [address] 21088- 0982 Feb, [facility] [address] 79109- 6757 Feb, Panic attacks F41.0 and Chronic pain G89.29 [facility] [address] 31002- 6319 Feb, [facility] [address] 17577- 8987 Feb, Panic attacks F41.0 ; Shortness of breath R06.02 and Encounter for immunization Z23 [facility] [id number] [place] [address] 71663- 4294 Jan, [facility] [id number] [place] [address] 85978- 9523 Jan, Anxiety F41.9 and Chronic pain G89.29 [facility] [id number] [place] [address] 53970- 2725 Dec, Anxiety F41.9 and Chronic pain G89.29 [facility] [id number] [place] [address] 57900- 6537 Nov, Chronic pain G89.29 [facility] [id number] [place] [address] 05744- 6158 Nov, Anxiety F41.9 [facility] [id number] [place] [address] 88801- 8802 Nov, Chronic pain G89.29 ; Essential hypertension I10 and Other emphysema J43.8 [facility] [id number] [place] [address] 72519- 8237 Oct, Anxiety F41.9 [facility] [id number] [place] [address] 96919- 5754 Oct, [facility] [id number] [place] [address] 79103- 6309 Oct, Chronic pain G89.29 [facility] [address] 45532- 2214 September, Recurrent UTI N39.0 ; Neuropathy G62.9 and Anxiety F41.9 [facility] [id number] [place] [address] 58787- 3633 September, [facility] [id number] [place] [address] 64567- 3921 September, Chronic pain G89.29 [facility] [id number] [place] [address] 79712- 3314 September, [facility] [id number] [place] [address] 04369- 4605 Aug, Post-traumatic stress disorder, chronic F43.12 ; Chronic urinary tract infection N39.0 ; Gastroesophageal reflux disease without esophagitis K21.9 ; Chronic pain G89.29 ; Essential hypertension I10 and Tobacco abuse Z72.0 [facility] [id number] [place] [address] 12043 -2920 Aug, [facility] [id number] [place] [address] 20346- 8919 Aug, Chronic pain G89.29 [facility] [id number] [place] [address] 14556- 9521 Aug, Insomnia, unspecified type G47.00 [facility] [id number], [place] [address]- 9137 13 Aug, 2016 [facility] [id number] [place] [address] 74502- 7402 24 Jul, 2016 Chronic pain G89.29 [facility] [id number] [place] [address] 02881- 9742 Jul, [facility] [id number] [place] [address] 51744- 4923 Jul, [facility] [id number] [place] [address] 24157- 8978 Jul, [facility] [id number] [place] [address] 50754- 0015 15 Jul, 2016 Recurrent UTI (urinary tract infection) N39.0 [facility] [id number] [place] [address] 78452- 2484 Jul, [facility] [id number] [place] [address] 02261- 9207 Jun, Chronic pain G89.29 [facility] [id number] [place] [address] 40211- 4947 17 Jun, 2016 [facility] [id number] [place] [address] 22707- 3562 13 Jun, 2016 [facility] [id number] [place] [address] 64291- 3593 May, Chronic pain G89.29 [facility] [id number] [place] [address] 46311- 4482 May, Weight loss R63.4 and Shortness of breath R06.02 [facility] [id number] [place] [address] 40889- 4202 May, Chronic pain G89.29 ; Weight loss R63.4 and Tobacco abuse Z72.0 [facility] [id number] [place] [address] 58557- 2360 May, [facility] [address], [place] [address]- 3069 May, Hypoxia R09.02 [facility] [address], [place] [address]- 2897 May, [facility] [id number] [place] [address] 84824- 2935 May, Pulmonary emphysema, unspecified emphysema type J43.9 [facility] [id number] [place] [address] 68947 -4240 May, [facility] [id number] [place] [address] 43262- 9884 May, [facility] [id number] [place] [address] 73758- 8197 May, [facility] [id number] [place] [address] 73219- 7177 May, Chronic pain G89.29 ; Encounter for immunization Z23 ; Right anterior knee pain M25.561 and Cough R05 [facility] [id number] [place] [address] 58382- 1365 Apr, Chronic pain G89.29 [facility] [id number] [place] [address] 44630- 8035 Apr, [facility] [id number] [place] [address] 50988- 3575 Apr, Generalized anxiety disorder F41.1 and Depression, unspecified depression type F32.9 [facility] [id number] [place] [address] 72922- 5048 Apr, Chronic pain G89.29 ; Hypokalemia E87.6 and Insomnia, unspecified type G47.00 [facility] [address], [place] [address]- 8434 Apr, [facility] [id number], [place] [address]- 2907 Apr, Chronic pain G89.29 [facility] [address] [facility] [id number] [place] [address]- 2462 Apr, [facility] [address] [facility] [id number] [place] [address]- 4256 Mar, [facility] [address] [facility] [id number] [place] [address]- 1970 Mar, Insomnia, unspecified type G47.00 [facility] [address] [facility] [id number] [place] [address]- 5377 Mar, Chronic pain G89.29 [facility] [address] [facility] [id number] [place] [address]- 1908 Mar, [facility] [id number] [address]- 6057 Feb, [facility] [address] [facility] [id number], [place] [address]- 9477 Feb, [facility] [address] [facility] [id number] [place] [address]- 4431 Feb, [facility] [place] [facility] [id number] [place] [address]- 2503 Feb, [facility] [id number] [address]- 9051 Feb, [facility] [place] [facility] [address] [facility] [id number], [place] [address]- 3947 29 Jan, 2016 [facility] [place] [facility] [address] [facility] [id number] [place] [address]- 9971 26 Jan, 2016 [facility] [place] [facility] [address] [facility] [id number] [place] [address]- 5140 20 Jan, 2015 [facility] [place] [facility] [id number] [place] [address]- 0206 13 Jan, 2015 [facility] [place] [facility] [address], [place] [address]- 2794 12 Jan, 2016 [facility] [id number] [place] [address] 38350- 5470 07 Jan, 2016 Chronic pain G89.29 [facility] [id number] [place] [address] 92523- 5271 Jan, Chronic pain G89.29 and Fibromyalgia M79.7 [facility] [id number] [place] [address] 09058- 4945 Dec, Depression, unspecified depression type F32.9 and Generalized anxiety disorder 300.02 [facility] [id number] [place] [address] 36969- 8384 Dec, Dysthymia F34.1 ; Insomnia, unspecified type G47.00 and Chronic pain G89.29 [facility] [id number] [place] [address] 62209- 4814 Dec, Chronic pain G89.29 [facility] [id number] [place] [address] 00581- 3910 Dec, Insomnia, unspecified type G47.00 [facility] [id number] [place] [address] 75986- 6822 Dec, Fibromyalgia M79.7 and Chronic pain G89.29 [facility] [id number] [place] [address] 94643- 1867 Dec, [facility] [id number] [place] [address] 25000- 6488 Dec, [facility] [id number] [place] [address] 04750- 1504 Dec, [facility] [id number] [place] [address] 74733- 2720 Dec, [facility] [id number] [place] [address] 14385- 7629 Dec, Chronic pain G89.29 [facility] [id number] [place] [address] 69737- 8439 Dec, [facility] [id number] [place] [address] 46383- 8069 Dec, [facility] [id number] [place] [address] 26430- 3288 Dec, [facility] [address] 25665- 4892 Dec, Chronic pain G89.29 and Dysthymia F34.1 [facility] [id number] [place] [address] 24099- 6229 Nov, [facility] [id number] [place] [address] 10190- 2885 Nov, Hypokalemia E87.6 and Chronic pain G89.29 [facility] [id number] [place] [address] 30979- 4894 Nov, Back pain M54.9 and Pain in right knee M25.561 [facility] [id number] [place] [address] 74126- 2760 Nov, [facility] [id number] [place] [address] 78027- 3995 Nov, Chronic pain G89.29 [facility] [id number] [place] [address] 99389- 3267 Nov, Chronic pain G89.29 ; Weight loss R63.4 ; Bone pain M89.8X9 and Insomnia, unspecified type G47.00 [facility] [id number] [place] [address] 79473- 2900 Nov, Chronic pain G89.29 [facility] [id number] [place] [address] 61610- 8271 Nov, Chronic pain G89.29 [facility] [id number] [place] [address] 71085- 5206 30 Oct, 2015 Chronic pain G89.29 [facility] [address], [place] [address]- 9280 Oct, UTI symptoms R39.9 [facility] [id number], [place] [address] 2546 Oct, Chronic pain G89.29 [facility] [id number] [place] [address] 08767- 5396 Oct, Chronic pain G89.29 [facility] [id number] [place] [address] 39618- 1044 Oct, Chronic pain G89.29 [facility] [id number] [place] [address] 51889- 9859 Oct, Right upper quadrant abdominal pain R10.11 [facility] [id number] [place] [address] 85875- 7880 Oct, Chronic pain G89.29 [facility] [id number] [place] [address] 83112- 6426 Oct, [facility] [id number] [place] [address] 63671- 2353 September, Chronic pain G89.29 [facility] [id number] [address] September, Dysuria R30.0 and Urinary tract infection without hematuria , site unspecified N39.0 [facility] [id number] [address] September, [facility] [id number] [place] [address] 62940- 8508 September, Dysuria R30.0 [facility] [id number] [address] September, Chronic pain G89.29 [facility] [id number] [place] [address] 07873- 2713 September, Chronic pain G89.29 and Essential hypertension I10 [facility] [id number] [place] [address] 68736- 2660 September, [facility] [address] [address]- 1962 September, [facility] [id number] [place] [address] 76450- 5863 September, [facility] [address] [address]- [address] Aug, UTI symptoms R39.9 [facility] [address] [address]- [address] Aug, Dysuria R30.0 [facility] [id number] [place] [address] 55609- 9816 Aug, [facility] [address] 64168- 6418 Aug, [facility] [id number] [place] [address] 23903- 1327 Aug, [facility] [id number] [place] [address] 68162- 6800 Aug, Chronic pain G89.29 [facility] [id number] [place] [address] 40632- 7538 Aug, Dysthymia F34.1 [facility] [id number] [place] [address] 49650- 4473 Aug, Conjunctivitis, unspecified conjunctivitis type, unspecified laterality H10.9 [facility] [facility] [id number] [place] [address]77- 0522 Jul, Chronic pain G89.29 ; Back pain M54.9 ; Tobacco abuse Z72.0 and Weight decrease R63.4 [facility] [id number] [place] [address] 54116- 7828 Jul, [facility] [address] [facility] [id number] [place] [address]- 6744 30 Jul, 2015 [facility] [address] [facility] [id number] [place] [address]- 8995 24 Jul, 2015 Chronic pain G89.29 [facility] [address] [facility] [id number] [place] [address]- 2766 22 Jul, 2015 [facility] [address] [facility] [id number] [place] [address]- 1616 21 Jul, 2015 [facility] [address] [facility] [id number] [place] [address]- 6643 18 Jul, 2015 [facility] [address] [facility] [id number] [place] [address]- 9585 17 Jul, 2015 [facility] [id number] [place] [address]- 1515 17 Jul, 2015 Chronic pain G89.29 [facility] [address] [facility] [id number] [place] [address]- 4811 16 Jul, 2015 Chronic pain G89.29 [facility] [id number] [place] [address] 0700 15 Jul, 2015 [facility] [address] [id number] [place] [address]- 6333 10 Jul, 2015 [facility] [id number] [place] [address]- 7864 07 Jul, 2015 [facility] [address] [facility] [id number] [place] [address]- 2629 Jul, [facility] [address] [facility] [id number] [address] Jun, [facility] [address] [id number] [place] [address]- 5201 Jun, Depression, unspecified depression type F32.9 [facility] [id number] [place] [address] 50279- 2580 Jun, Pain in right knee M25.561 [place] [id number] [place] [address] 10838- 7226 Jun, Chronic pain G89.29 ; Back pain M54.9 ; Bone pain M89.8X9 and Weight loss R63.4 [place] [address] [address]- 5539 Jun, [place] [address] [address]- 0796 May, [place] [address] [address]286- 0485 May, UTI symptoms R39.9 ; Pain in right knee M25.561 ; Right low back pain, with sciatica presence unspecified M54.5 ; Right foot pain M79.671 ; Hypokalemia E87.6 and Screening, lipid Z13.220 [place] [address] [address]- 4490 May, [place] [address] [address]- 1762 May, [place] [id number] [place] [address] 24765- 3824 Mar, [place] [id number] [place] [address] 19233- 1694 Mar, [place] [address] 65[address]- 4640 Mar, Hypokalemia E87.6 [place] [address] 60[address]- 1049 16 Mar, 2015 Pain in right leg M79.604 ; Encounter for immunization Z23 ; Pain in right knee M25.561 and Hypokalemia E87.6 [place] [address] [address]- 0812 Jan, [facility] [id number] [address]- 8351 Jan, [facility] [address], [place] [address]- 1696 Jan, Abdominal pain, generalized 789.07 [facility] [address], [place] [address]- 8226 Jan, Abdominal pain, generalized 789.07 [facility] [address], [place] [address]- 3166 Dec, [facility] [id number] [place] [address] 43450- 8088 Dec, [facility] [address]00565[address], [place] [address]- 1483 Dec, [facility] [address], [place] [address]- 8093 Nov, Hallux valgus 735.0 and Hammertoe 735.4 [facility] [address]005[address], [place] [address]- 0639 Nov, [facility] [address]005[address], [place] [address]- 5037 Nov, Hallux valgus 735.0 and Hammer toe 735.4 [facility] [address]005[address], [place] [address]- 8657 Oct, [facility] [address], [place] [address]- 5762 Oct, [facility] [address]65[address] 9734 Oct, Pre-op evaluation V72.84 [facility] [address], [place] [address]- 9386 Oct, [facility] [id number], [place] [address]- 6011 Oct, [facility] [address] [facility] [id number] [place] [address]- 7059 September, [facility] [address] [facility] [id number] [place] [address]- 0639 September, [facility] [address] [facility] [id number] [place] [address]- 7702 September, Hallux valgus (acquired) 735.0 and Other hammer toe ( acquired) 735.4 [facility] [address] [facility] [id number] [place] [address]- 0233 Aug, [facility] [address] [facility] [id number] [place] [address], [place] [address]- 8163 Aug, [facility] [address]65[address] [place] [address]- 6076 Jul, [facility] [address] [id number] [address]- 7460 Jul, [facility] [address] [id number] [place] [address]- 7893 Jul, [facility] [address] [facility] [id number] [place] [address]- 0604 Jul, [facility] [address] [id number], [place] [address]- 9404 Jul, [facility] [place] [facility] [address] [facility] [id number], [place] [address]- 3567 Jul, [facility] [place] [facility] [address] [facility] [id number]- 0407 Jul, [facility] [place] [facility] [address] [facility] [id number] [place] 2574 Jul, [facility] [place] [facility] [address] [facility] [id number], [place] [address]- 1195 Jun, [facility] [place] [facility] [address] [facility] [id number], [place] [address]- 5447 Jun, 2014 [facility] [place] [facility] [address] [id number] [place] [address]- 8097 Jun, [facility] [place] [facility] [address] [id number] [place] 6356 Jun, 2014 [facility] [place] [facility] [address] [id number] [place] [address]- 1522 Jun, 2014 [facility] [place] [facility] [address] [id number] [place] [address]- 1296 Jun, 2014 [facility] [place] [facility] [address] [id number] [place] [address]- 5918 Jun, 2014 [facility] [place] [facility] [address] [id number] [place] [address]- 1499 Jun, [facility] [place] [facility] [address] [facility] [id number] [place] [address]- 2259 Jun, [facility] [place] [facility] [address] [id number] [place] [address]- 4583 Jun, [facility] [place] [facility] [address] [id number] [place] [address]- 1316 May, [facility] [place] [facility] [address] [facility] [id number] [place] [address]- 0010 May, [facility] [place] [facility] [address] [facility] [id number] [place] [address]- 0939 May, [facility] [place] [facility] [address] [id number] [place] [address]- 7872 May, [facility] [place] [facility] [address] [id number] [place] [address]- 8806 May, [facility] [place] [facility] [address] [facility] [id number] [place] [address]- 9130 May, [facility] [place] [facility] [address] [facility] [id number], [place] [address]- 8499 May, [facility] [place] [facility] [address] [id number] [place] [address]- 8758 May, [facility] [place] [facility] [address] [id number] [place] [address]- 9423 May, [facility] [place] [facility] [address] [id number] [place] [address]- 9342 May, [facility] [place] [facility] [address] [id number] [place] [address]- 0681 May, [facility] [place] [facility] [address] [id number] [place] [address]- 0058 May, [facility] [place] [facility] [address] [id number] [place] [address]- 5294 May, [facility] [place] [facility] [address] [id number] [place] [address]- 6577 May, [facility] [place] [facility] [address] [id number] [place] [address]- 0098 May, [facility] [place] [facility] [address] [id number] [place] [address]- 9044 May, [facility] [place] [facility] [address] [id number] [place] [address]- 5857 May, [facility] [place] [facility] [address] [id number] [place] [address]- 8738 May, [facility] [place] [facility] [address] [id number] [place] [address]- 8696 Apr, [facility] [place] [facility] [address] [id number] [place] [address]- 5906 Apr, [facility] [place] [facility] [address] [id number] [place] [address]- 6849 Apr, [facility] [place] [facility] [address] [id number] [place] [address]- 3705 Apr, [facility] [place] [facility] [address] [id number], [place] [address]- 7546 Apr, [facility] [place] [facility] [address] [id number] [place] 4132 Apr, [facility] [place] [facility] [address] [id number] [place] [address]- 9107 Apr, [facility] [place] [facility] [address] [facility] [id number] [place] 4053 Apr, [facility] [place] [facility] [address] [id number] [place] 7632 Apr, [facility] [place] [facility] [address] [id number] [place] [address]- 6269 Mar, [facility] [place] [facility] [address] [id number] [place] [address]- 5520 Mar, [facility] [place] [facility] [address] [id number] [place] [address]- 4001 Mar, [facility] [place] [facility] [address] [id number] [place] [address]- 4731 Mar, [facility] [place] [facility] [address] [id number] [place] [address]- 1377 Mar, [facility] [place] [facility] [address] [id number] [place] [address]- 3098 Feb, [facility] [place] [facility] [address] [id number], [place] [address]- 0409 Feb, [facility] [place] [facility] [address] [id number], [place] [address]- 5758 Feb, [facility] [place] [facility] [address] [id number] [place] [address]- 9490 Feb, [facility] [place] [facility] [address] [id number] 9130 Feb, [facility] [place] [facility] [address] [id number], [place] [address]- 5997 Feb, [facility] [place] [facility] [address] [id number] [place] [address]- 7071 Feb, 2013 [facility] [place] [facility] [address] [id number] [place] [address]- 8698 Feb, 2013 [facility] [place] [facility] [address] [id number] [place] [address]- 2864 Feb, 2013 [facility] [place] [facility] [address] [id number] [place] [address]- 2436 Feb, 2013 [facility] [place] [facility] [address] [id number] [place] [address]- 8984 Feb, 2013 [facility] [place] [facility] [address] [id number] [place] [address]- 8509 Feb, 2013 [facility] [place] [facility] [address] [id number] [place] [address]- 2059 Feb, 2013 [facility] [place] [facility] [address] [id number] [place] [address]- 0884 Feb, 2013 [facility] [place] [facility] [address] [id number] [place] [address]- 5655 Feb, 2013 [facility] [place] [facility] [address] [id number] [place] [address]- 4414 Feb, 2013 [facility] [place] [facility] [address] [id number] [place] [address]- 9533 Jan, 2013 [facility] [place] [facility] [address] [id number] [place] [address]- 6972 23 Sep, 2013 [facility] [place] [facility] [address] [id number] [place] [address]- 4464 20 Sep, 2013 [facility] [place] [facility] [address] [id number] [place] [address]- 0660 19 Sep, 2013 [facility] [place] [facility] [address] [id number] [place] [address]- 6275 11 Jan, 2013 [facility] [place] [facility] [address] [id number] [place] [address]- 0716 Jan, [facility] [place] [facility] [address] [id number] [place] [address]- 0290 Jan, [facility] [place] [facility] [address] [id number] [place] [address]- 1186 Jan, [facility] [place] [facility] [address] [id number] [place] [address]- 0789 Dec, [facility] [place] [facility] [address] [id number] [place] [address]- 3856 Dec, [facility] [place] [facility] [address] [id number] [place] [address]- 3037 Nov, [facility] [place] [facility] [address] [id number] [place] [address]- 4134 Nov, [facility] [place] [facility] [address] [id number] [place] [address]- 8039 Nov, [facility] [place] [facility] [address] [id number] [place] [address]- 5305 Nov, [facility] [place] [facility] [address] [id number] [place] [address]- 5732 Nov, [facility] [place] [facility] [address] [id number] [place] [address]- 3702 Nov, [facility] [place] [facility] [address] [id number] [place] [address]- 5358 Nov, [facility] [place] [facility] [address] [id number] [place] [address]- 2526 Nov, [facility] [place] [facility] [address] [id number] [place] [address]- 0870 Nov, [facility] [place] [facility] [address] [id number] [place] [address]- 8246 Oct, [facility] [place] [facility] [address] [id number] [place] [address]- 4016 Oct, [facility] [place] [facility] [address] [id number] [place] [address]- 8502 Oct, [facility] [place] [facility] [address] [id number] [place] [address]- 4662 Oct, [facility] [place] [facility] [address] [id number] [place] [address]- 5193 Oct, [facility] [place] [facility] [address] [id number] [place] [address]- 1296 Oct, [facility] [place] [facility] [address] [id number] [place] [address]- 1019 September, [facility] [place] [facility] [address] [id number] [place] [address]- 6991 September, [facility] [place] [facility] [address] [id number] [place] [address]- 6813 September, [facility] [place] [facility] [address] [id number] [place] [address]- 9577 September, [facility] [place] [facility] [address] [id number] [place] [address]- 7843 September, [facility] [place] [facility] [address] [id number] [place] [address]- 0154 September, [facility] [place] [facility] [address] [id number] [place] [address]- 5003 September, [facility] [place] [facility] [address] [id number] [place] [address]- 8046 September, [facility] [place] [facility] [address] [id number] [place] [address]- 6280 September, [facility] [place] [facility] [address] [id number] [place] [address]- 4853 September, [facility] [place] [facility] [address] [id number] [place] [address]- 1742 September, [facility] [place] [facility] [address] [id number] [place] [address]- 8201 September, [facility] [place] [facility] [address] [id number] [place] [address]- 2383 September, [facility] [place] [facility] [address] [id number] [place] [address]- 6444 September, [facility] [place] [facility] [address] [id number] [place] [address]- 1515 September, [facility] [place] [facility] [address] [id number] [place] [address]- 0000 September, [facility] [place] [facility] [address] [id number] [place] 4904 September, [facility] [place] [facility] [address] [id number] [place] [address]- 2333 September, [facility] [place] [facility] [address] [id number] [place] [address]- 8692 September, [facility] [place] [facility] [address] [id number] [place] [address]- 6750 September, [facility] [place] [facility] [address] [id number] [place] [address]- 9312 Aug, [facility] [place] [facility] [address] [id number] [place] [address]- 3260 Aug, [facility] [place] [facility] [address] [id number] [place] [address]- 9337 Aug, [facility] [place] [facility] [address] [id number] [place] [address]- 5016 Aug, [facility] [place] [facility] [address] [id number] [place] [address]- 8152 Aug, [facility] [place] [facility] [address] [id number] [place] [address]- 6560 Aug, [facility] [place] [facility] [address] [id number] [place] 2728 Aug, [facility] [place] [facility] [address] [id number] [place] [address]- 0110 16 Aug, 2013 [facility] [place] [facility] [address] [id number] [place] [address]- 6698 15 Aug, 2013 [facility] [place] [facility] [address] [id number] [place] [address]- 4911 15 Aug, 2013 [facility] [place] [facility] [address] [id number] [place] [address]- 7105 14 Aug, 2013 [facility] [place] [facility] [address] [id number] [place] [address]- 8098 Aug, [facility] [place] [facility] [address] [id number] [place] [address]- 4075 Aug, [facility] [place] [facility] [address] [id number] [place] [address]- 7816 Aug, [facility] [place] [facility] [address] [id number] [place] [address]- 6469 Aug, [facility] [place] [facility] [address] [id number] [place] [address]- 2939 31 Jul, 2013 [facility] [place] [facility] [address] [id number] [place] [address]- 6211 31 Jul, 2013 [facility] [place] [facility] [address] [id number] [place] [address]- 2529 27 Jul, 2013 [facility] [place] [facility] [address] [id number] [place] [address]- 9054 27 Jul, 2013 [facility] [place] [facility] [address] [id number] [place] [address]- 2509 20 Jul, 2013 [facility] [place] [facility] [address] [id number] [place] [address]- 2442 20 Jul, 2013 [facility] [place] [facility] [address] [id number] [place] [address]- 6871 18 Jul, 2013 [facility] [place] [facility] [address] [id number] [place] [address]- 7249 18 Jul, 2013 [facility] [place] [facility] [address] [id number] [place] [address]- 1791 06 Jul, 2013 [facility] [place] [facility] [address] [id number] [place] [address]- 8507 Jul, [facility] [place] [facility] [address] [id number] [place] [address]- 6656 Jul, [facility] [place] [facility] [address] [id number] [place] [address] Jul, [facility] [place] [facility] [address] [id number] [place] [address] Jul, [facility] [place] [facility] [address] [id number] [place] [address] Jul, [facility] [place] [facility] [address] [id number] [place] [address] Jul, [facility] [place] [facility] [address] [id number] [place] [address] Jun, [facility] [place] [facility] [address] [id number] [place] [address] Jun, [facility] [place] [facility] [address] [id number] [place] [address] Jun, [facility] [place] [facility] [address] [facility] [id number] [place] [address] Jun, [facility] [place] [facility] [address] [id number] [place] [address] Jun, [facility] [place] [facility] [address] [id number] [place] [address] Jun, [facility] [place] [facility] [address] [id number] [place] [address] May, [facility] [place] [facility] [address] [id number] [place] [address] May, [facility] [place] [facility] [address] [id number] [place] [address] May, [facility] [address] [id number] [place] [address] May, [facility] [place] [facility] [address] [id number] [place] [address] May, [facility] [place] [facility] [address] [id number] [place] [address] May, [facility] [place] [facility] [address] [id number] [place] [address] May, [facility] [place] [facility] [address] [id number] [place] [address] May, [facility] [place] [facility] [address] [id number] [place] [address] May, [facility] [place] [facility] [address] [id number] [place] [address] May, [facility] [place] [facility] [address] [id number] [place] [address] May, [facility] [place] [facility] [address] [id number] [place] [address] May, [facility] [place] [facility] [address] [id number] [place] [address] May, [facility] [place] [facility] [address] [id number] [place] [address] May, [facility] [place] [facility] [address] [id number] [place] [address] May, [facility] [place] [facility] [address] [id number] [place] [address] Apr, [facility] [place] [facility] [address] [id number] [place] [address] Apr, [facility] [place] [facility] [address] [id number] [place] [address] 119[address] Apr, [facility] [place] [facility] [address] [id number] [place] [address] Apr, [facility] [address] [id number] [place] [address] Apr, [facility] [address] [id number] [place] [address]- 245[address] Apr, [facility] [address] [id number] [place] [address] Apr, [facility] [place] [facility] [address] [id number] [place] [address]- 6[address] Apr, [facility] [address] [id number] [place] [address] 95[address] Apr, [facility] [address] [id number] [place] [address] 8084 Apr, [facility] [address] [id number], [place] [address] Mar, [facility] [address] [id number], [place] [address] Mar, [facility] [address] [id number] [place] [address]- 65[address] Mar, [facility] [address] [id number] [place] [address] 1431 Mar, [facility] [address] [id number] [place] [address] 385[address] Mar, [facility] [place] [facility] [address] [id number], [place] [address] Mar, [facility] [place] [facility] [address] [id number], [place] [address] Mar, [facility] [place] [facility] [address] [id number], [place] [address] Mar, [facility] [place] [facility] [address] [id number], [place] [address] Mar, [facility] [place] [facility] [address] [id number] [place] [address] Mar, [facility] [place] [facility] [address] [id number] [place] [address]- 1627 Mar, [facility] [place] [facility] [address] [id number] [place] [address] 407[address] Mar, [facility] [place] [facility] [address] [id number] [place] [address]- 1624 Mar, [facility] [place] [facility] [address] [id number] [place] [address]- 0636 Mar, [facility] [place] [facility] [address] [id number] [place] [address]21 Mar, [facility] [place] [facility] [address] [id number] [place] [address] 18 Mar, 2013 [facility] [place] [facility] [address] [id number] [place] [address]642 Mar, [facility] [place] [facility] [address] [id number] [place] [address] 2063 Mar, [facility] [place] [facility] [address] [id number] [place] [address] 8009 Mar, [facility] [place] [facility] [address] [id number] [place] [address]- 3838 Mar, [facility] [place] [facility] [address] [id number] [place] [address]- 6098 Mar, [facility] [place] [facility] [address] [id number] [place] [address]- 4[address] Mar, [facility] [place] [facility] [address] [id number] [place] [address] 9329 Mar, [facility] [place] [facility] [address] [id number] [place] [address] 18 Feb, 2013 [facility] [place] [facility] [address] [id number] [place] [address] 18 Feb, 2013 [facility] [place] [facility] [address] [id number] [place] [address]- 2009 16 Feb, 2013 [facility] [place] [facility] [address] [id number] [place] [address] 2973 16 Feb, 2013 [facility] [place] [facility] [address] [id number] [place] [address]- 65[address] 15 Feb, 2013 [facility] [place] [facility] [address] [id number] [place] [address] Feb, [facility] [place] [facility] [address] [id number] [place] [address] 8959 Feb, [facility] [place] [facility] [address] [id number] [place] [address] 1800 Feb, [facility] [place] [facility] [address] [id number] [place] [address] 2005 04 Feb, 2013 [facility] [place] [facility] [address] [id number], [place] [address] 03 Feb, 2013 [facility] [place] [facility] [address] [id number] [place] [address] 5301 30 Jan, 2013 [facility] [place] [facility] [address] [id number] [place] [address] 4848 26 Jan, 2013 [facility] [place] [facility] [address] [id number], [place] [address]406 24 Jan, 2013 [facility] [place] [facility] [address] [id number], [place] [address]48 23 Jan, 2013 [facility] [place] [facility] [address] [id number] [place] [address] 3999 17 Jan, 2013 [facility] [place] [facility] [address] [id number], [place] [address] 9289 28 Dec, 2012 [facility] [place] [facility] [address] [id number], [place] [address]234 Dec, [facility] [place] [facility] [address] [id number] [place] [address] 1009 Dec, [facility] [address] [id number] [place] [address] 4514 Dec, [facility] [place] [facility] [address] [id number] [place] [address] 9494 Dec, [facility] [address] [id number] [place] [address]- 0194 Dec, [facility] [place] [facility] [address] [id number] [place] [address] 6257 Dec, [facility] [address] [id number] [place] [address]- 2451 Nov, [facility] [address] [id number] [place] [address] 7926 Nov, [facility] [address] [id number] [place] [address] 4366 Nov, [facility] [address] [id number] [place] [address] 2782 Nov, [facility] [place] [facility] [address] [id number] [place] [address]- 7833 Nov, [facility] [address] [id number] [place] [address] 5699 Oct, [facility] [place] [facility] [address] [id number] [place] [address] 2297 Oct, [facility] [place] [facility] [address] [id number] [place] [address]- 0231 Oct, [facility] [place] [facility] [address] [id number] [place] [address]- 7626 September, [facility] [place] [facility] [address] [id number] [place] [address]- 3192 September, [facility] [place] [facility] [address] [id number] [place] [address]- 7503 September, [facility] [address] [id number] [place] [address] 7650 September, [facility] [address] [id number] [place] [address] September, [facility] [address] [id number] [place] [address]- 7957 September, [facility] [address] [id number] [place] [address]- 9082 September, [facility] [address] [id number] [place] [address] 3143 Aug, [facility] [address] [id number] [place] [address]- 8110 Aug, [facility] [address] [id number] [place] [address]- 3310 Aug, [facility] [address] [id number] [place] [address] 3836 29 Jul, 2012 [facility] [address] [id number] [place] [address]- 3568 Jul, [facility] [address] [id number] [place] [address]- 3925 26 Jul, 2012 [facility] [address] [id number] [place] [address]- 0485 Jul, [facility] [address] [id number] [place] [address]- 0877 18 Jul, 2012 [facility] [address] [id number] [place] [address]- 4758 18 Jul, 2012 [facility] [address] [id number] [place] [address]- 1485 13 Jul, 2012 [facility] [address] [id number] [place] [address]- 4876 28 Jun, 2012 [facility] [address] [id number] [place] [address]- 7262 Jun, [facility] [address] [id number] [place] [address] 2546 Jun, [facility] [place] [facility] [address] [id number] [place] [address]- 5006 Jun, [facility] [address] [id number] [place] [address]- 9836 Jun, [facility] [place] [facility] [address] [id number] [place] [address] 2546 Jun, [facility] [place] [facility] [address] [id number] [place] [address]- 2626 Jun, [facility] [place] [facility] [address] [id number] [place] [address]- 3396 Jun, [facility] [place] [facility] [address] [facility] [id number] [place] [address]- 6936 Jun, [facility] [address] [id number] [place] [address]- 7143 Jun, [facility] [place] [facility] [address] [id number] [place] [address]- 9448 May, [facility] [address] [id number] [place] [address]- 4421 May, [facility] [place] [facility] [address] [id number] [place] [address] 2546 May, [facility] [place] [facility] [address] [id number] [place] [address] 254 May, [facility] [place] [facility] [address] [id number] [place] [address]- 5706 May, [facility] [place] [facility] [address] [id number] [place] [address] 2546 May, [facility] [place] [facility] [address] [id number] [place] [address]- 5665 Apr, [facility] [place] [facility] [address] [id number] [place] [address]- 0799 31 Apr, 2012 [facility] [place] [facility] [address] [id number] [place] [address]- 8509 Apr, [facility] [place] [facility] [address] [id number] [place] [address]- 6382 Apr, [facility] [place] [facility] [address] [id number] [place] [address]- 0710 Apr, [facility] [place] [facility] [address] [id number] [place] [address]- 8650 Apr, [facility] [place] [facility] [address] [id number] [place] [address]- 3249 Apr, [facility] [place] [facility] [address] [id number] [place] [address]- 9785 Mar, [facility] [place] [facility] [address] [id number] [place] [address]- 9377 29 Mar, 2012 [facility] [place] [facility] [address] [id number] [place] [address]- 9447 Mar, [facility] [place] [facility] [address] [facility] [id number] [place] [address]- 4641 Mar, [facility] [place] [facility] [address] [id number] [place] [address]- 0911 Mar, [facility] [place] [facility] [address] [id number], [place] [address]- 7802 18 Mar, 2012 [facility] [place] [facility] [address] [id number] [place] [address]- 2043 18 Mar, 2012 [facility] [place] [facility] [address] [id number] [place] [address]- 1733 16 Mar, 2012 [facility] [place] [facility] [address] [facility] [id number], [place] [address]- 4351 16 Mar, 2012 [facility] [place] [facility] [address] [id number], [place] [address]- 0570 Mar, [facility] [place] [facility] [address] [id number] [place] [address]- 2036 Mar, [facility] [place] [facility] [address] [id number] [place] [address]- 9889 Mar, [facility] [place] [facility] [address] [facility] [id number] [place] [address]- 6992 Mar, [facility] [place] [facility] [address] [id number] [place] [address]- 1456 Mar, [facility] [place] [facility] [address] [id number] [place] [address]- 2263 Mar, [facility] [place] [facility] [address] [facility] [id number] [place] [address]- 0294 Mar, [facility] [place] [facility] [address] [facility] [id number] [place] [address]- 8242 Mar, [facility] [place] [facility] [address] [facility] [id number] [place] [address]- 7333 Feb, [facility] [place] [facility] [address] [facility] [id number] [place] [address]- 0079 Feb, [facility] [place] [facility] [address] [facility] [id number], [place] [address]- 8127 Feb, [facility] [place] [facility] [address] [facility] [id number], [place] [address]- 4287 Feb, [facility] [place] [facility] [address] [facility] [id number], [place] [address]- 7756 Feb, [facility] [place] [facility] [address] [id number], [place] [address]- 3379 Feb, [facility] [place] [facility] [address] [facility] [id number], [place] [address]- 2593 Feb, [facility] [place] [facility] [address] [facility] [id number], [place] [address]- 3219 Feb, [facility] [place] [facility] [address] [id number] [place] [address]- 2379 05 Feb, 2012 [facility] [place] [facility] [address] [id number] [place] [address]- 1089 04 Feb, 2012 [facility] [place] [facility] [address] [id number] [place] [address]- 3156 Feb, [facility] [place] [facility] [address] [id number] [place] [address]- 9576 27 Jan, 2012 [facility] [place] [facility] [address] [id number] [place] [address]- 9986 25 Jan, 2012 [facility] [place] [facility] [address] [id number] [place] [address]- 6596 13 Jan, 2012 [facility] [place] [facility] [address] [id number] [place] [address]- 8264 12 Jan, 2012 [facility] [place] [facility] [address] [id number] [place] [address]- 9166 07 Jan, 2012 [facility] [place] [facility] [address] [id number] [place] [address]- 4835 31 Dec, 2011 [facility] [place] [facility] [address] [id number] [place] [address]- 2712 24 Dec, 2011 [facility] [place] [facility] [address] [id number] [place] [address]- 6132 Dec, [facility] [place] [facility] [address] [id number] [place] [address]- 7086 18 Dec, 2011 [facility] [place] [facility] [address] [id number] [place] [address]- 0737 16 Dec, 2011 [facility] [place] [facility] [address] [id number] [place] [address]- 0405 Dec, [facility] [place] [facility] [address] [id number] [place] [address]- 9016 Dec, [facility] [place] [facility] [address] [id number] [place] [address]- 2347 Dec, [facility] [place] [facility] [address] [id number] [place] [address]- 1979 Nov, [facility] [place] [facility] [address] [id number] [place] [address]- 1269 Nov, [facility] [place] [facility] [address] [id number] [place] [address]- 0653 Nov, [facility] [place] [facility] [address] [id number] [place] [address]- 2725 Nov, [facility] [place] [facility] [address] [id number] [place] [address]- 6412 Nov, [facility] [place] [facility] [address] [id number] [place] [address]- 1378 Oct, [facility] [place] [facility] [address] [id number] [place] [address]- 7747 Oct, [facility] [place] [facility] [address] [id number] [place] [address]- 3990 September, [facility] [place] [facility] [address] [id number] [place] [address]- 8354 September, [facility] [place] [facility] [address] [id number] [place] [address]- 2556 September, [facility] [place] [facility] [address] [id number] [place] [address]- 1967 September, [facility] [place] [facility] [address] [id number] [place] [address]- 3158 September, [facility] [place] [facility] [address] [id number] [place] [address]- 0362 September, [facility] [place] [facility] [address] [id number] [place] [address]- 0893 September, [facility] [place] [facility] [address] [id number] [place] [address]- 8101 September, [facility] [place] [facility] [address] [id number] [place] [address]- 5060 September, [facility] [address] [id number] [place] [address]- 3980 September, [facility] [address] [id number] [place] [address]- 6872 September, [facility] [address] [id number] [place] [address]- 6713 September, [facility] [address] [id number] [place] [address]- 4899 September, [facility] [address] [id number] [place] [address]- 1237 September, [facility] [address] [id number] [place] [address]- 6337 24 Aug, 2011 [facility] [address] [id number] [place] [address]- 9761 Aug, [facility] [address] [id number] [place] [address]- 9025 13 Aug, 2011 [facility] [address] [id number] [place] [address]- 4794 Aug, [facility] [address] [id number] [place] [address]- 8577 23 Jul, 2011 [facility] [address] [id number] [place] [address]- 3835 13 Jul, 2011 [facility] [address] [id number] [place] [address]- 1305 13 Jul, 2011 [facility] [address] [id number] [place] [address]- 0775 28 Jun, [address] [facility] [address] [id number][place] [id number] 26 Jun, 2011 [facility] [address] [id number], [place] [address]- 4215 13 Jun, 2011 [facility] [address] [id number] [place] [address]- 7822 10 Jun, 2011 [facility] [place] [facility] [address] [id number] [place] [address]- 3340 07 Jun, 2011 [facility] [place] [facility] [address] [id number] [place] [address]- 9336 07 Jun, 2011 [facility] [place] [facility] [address] [id number] [place] [address]- 7746 Jun, [facility] [place] [facility] [address] [id number] [place] [address]- 9265 Jun, [facility] [place] [facility] [address] [id number] [place] [address]- 6565 May, [facility] [place] [facility] [address] [id number] [place] [address]- 9675 May, [facility] [address] [id number] [place] [address]- 9782 May, [facility] [place] [facility] [address] [id number] [place] [address]- 7721 May, [facility] [place] [facility] [address] [id number] [place] [address]- 5442 May, [facility] [place] [facility] [address] [id number] [place] [address]- 0498 May, [facility] [place] [facility] [address] [id number] [place] [address]- 5252 May, [facility] [place] [facility] [address] [id number] [place] [address]- 5739 May, [facility] [place] [facility] [address] [id number] [place] [address]- 2448 May, [facility] [place] [facility] [address] [id number] [place] [address]- 0927 May, [facility] [place] [facility] [address] [id number], [place] [address]- 0480 17 May, 2011 [facility] [place] [facility] [address] [id number] [place] [address]- 8356 May, [facility] [place] [facility] [address] [id number] [place] [address]- 2865 May, [facility] [place] [facility] [address] [id number] [place] [address]- 7489 May, [facility] [place] [facility] [address] [id number] [place] [address]- 6156 30 Apr, 2011 [facility] [place] [facility] [address] [id number] [place] [address]- 3122 16 Apr, 2011 [facility] [place] [facility] [address] [id number] [place] [address]- 9215 05 Apr, 2011 [facility] [place] [facility] [address] [id number] [place] [address]- 5582 Mar, [facility] [place] [facility] [address] [id number] [place] [address]- 3897 Mar, [facility] [place] [facility] [address] [id number] [place] [address]- 5321 31 Feb, 2011 [facility] [place] [facility] [address] [id number] [place] [address]- 7820 26 Feb, 2011 [facility] [place] [facility] [address] [id number], [place] [address]- 2932 Feb, [facility] [place] [facility] [address] [id number] [place] [address]- 3779 20 Feb, 2011 [facility] [place] [facility] [address] [id number] [place] [address]- 3251 13 Feb, 2011 [facility] [place] [facility] [address] [id number] [place] [address]- 6388 28 Apr, 2010 [facility] [place] [facility] [address] [id number] [place] [address]- 1041 22 Apr, 2010 [facility] [place] [facility] [address] [id number] [place] [address]- 3116 16 Apr, 2010 [facility] [place] [facility] [address] [id number] [place] [address]- 7975 15 Apr, 2010 [facility] [place] [facility] [address] [id number] [place] [address]- 0806 15 Apr, 2010 [facility] [place] [facility] [address] [id number] [place] [address]- 9856 Apr, [facility] [place] [facility] [address] [id number] [place] [address]- 2670 24 Mar, 2010 [facility] [place] [facility] [address] [id number] [place] [address]- 1680 Mar, [facility] [place] [facility] [address] [id number] [place] [address]- 4386 17 Mar, 2010 [facility] [place] [facility] [address] [id number] [place] [address]- 7612 Feb, [facility] [place] [facility] [address] [id number] [place] [address]- 3459 Feb, [facility] [place] [facility] [address] [id number] [place] [address]- 4898 Feb, [facility] [place] [facility] [address] [id number] [place] [address]- 1605 15 Feb, 2010 [facility] [place] [facility] [address] [id number] [place] [address]- 4920 Dec, [facility] [place] [facility] [address] [id number] [place] [address]- 9615 Dec, [facility] [place] [facility] [address] [id number] [place] [address] 15 Oct, 2009 [facility] [place] [facility] [address] [id number] [place] [address]- 2541 Mar, [facility] [place] [facility] [address] [id number] [place] [address]- 4946 Mar, [facility] [address] [facility] [id number] [place] [address]- 5464 September, IMMUNIZATIONS No Known Immunizations SOCIAL HISTORY Never Assessed REASON FOR VISIT CT of abd and pelvis PLAN OF CARE VITAL SIGNS MEDICATIONS Unknown Medications RESULTS Name Result Date Reference Range CT Scan : Abdomen & Pelvis w/o Contrast 2017-05-16 PROCEDURES No Known procedures INSTRUCTIONS MEDICATIONS ADMINISTERED [...]
--- OUTSIDE RECORDS SUMMARY | 2017-11-27 15:56 | XMS REPORT ---
Author Author VALERIE ZAVALA [facility] Address [address] [place] [address] Care Team Providers Care Transport Tech Name Role Phone VALERIE ZAVALA Unavailable PROBLEMS Type Condition ICD9-CM Code TLU79-BE Code Onset Dates Condition Status SNOMED Code Problem Generalized anxiety disorder F41.1 Active 33098331 Problem Hypokalemia E87.6 Active 089034128 Problem Right low back pain, with sciatica presence unspecified M54.5 Active 165606062 Problem Post-traumatic stress disorder, chronic F43.12 Active 29163746 Problem Pain in right knee M25.561 Active 07686197 Problem Gastroesophageal reflux disease without esophagitis K21.9 Active 571802002 Problem UTI symptoms R39.9 Active 19165608 Problem Essential hypertension I10 Active 22201108 Problem Anxiety F41.9 Active 75454770 Problem Neuropathy G62.9 Active 539313241 Problem Other chronic pain G89.29 Active 58022894 Problem Generalized abdominal pain R10.84 Active 779622682 Problem Chronic pain G89.29 Active 54486533 Problem Back pain M54.9 Active 661125000 Problem Right foot pain M79.671 Active 31603097 Problem Panic attacks F41.0 Active 831878207 Problem Other emphysema J43.8 Active 19380576 Problem Kidney stones N20.0 Active 94856833 Problem Renal calculus, right N20.0 Active 94979219 Problem Weight decrease R63.4 Active 748568450 Problem Tobacco abuse Z72.0 Active 84186747 Problem Bone pain M89.8X9 Active 65952768 Problem Depression, unspecified depression type F32.9 Active 67987699 Problem Insomnia, unspecified type G47.00 Active 174526854 Problem Pulmonary emphysema, unspecified emphysema type J43.9 Active 51898417 Problem Right upper quadrant abdominal pain R10.11 Active 207561326 Problem Weight loss R63.4 Active [id number] ALLERGIES No Information ENCOUNTERS Encounter Location Date Diagnosis [facility] [address] [place] [address] Nov, [facility] [id number] [place] [address] 73091- 7404 Oct, Medicare welcome exam Z00.00 [facility] [id number] [place] [address] 60010- 6608 September, Back pain M54.9 and Right anterior knee pain M25.561 [facility] [id number] [place] [address] 75831- 0417 September, [facility] [id number] [place] [address] 93576- 9985 September, [facility] [id number] [place] [address] 52491- 4720 September, Essential hypertension I10 [facility] [id number] [place] [address] 51529- 4846 September, [facility] [id number] [place] [address] 64406- 1522 September, RLQ abdominal pain R10.31 ; Low back pain M54.5 and Other chronic pain G89.29 [facility] [id number] [place] [address] 88024- 0695 Aug, Medicare welcome exam Z00.00 [facility] [id number] [place] [address] 43205- 0540 Aug, [facility] [id number] [place] [address] 52276- 0728 Aug, Acute pyelonephritis N10 and Medicare welcome exam Z00.00 [facility] [id number] [place] [address] Aug, Dysuria R30.0 and Acute pyelonephritis N10 [facility] [id number] [place] [address]- 2133 Aug, [facility] [id number] [place] [address] 23242- 3231 Aug, [facility] [id number] [place] [address] 99197- 2124 Aug, [facility] [id number] [place] [address] 89837- 5273 Aug, [facility] [id number] [place] [address] 69358- 4316 Jul, [facility] [id number] [place] [address] 14823- 8117 Jul, Renal calculus, right N20.0 and Medicare welcome exam Z00.00 [facility] [id number] [place] [address] 60284 -6215 Jul, Dysuria R30.0 and Renal calculus, right N20.0 [facility] [id number] [place] [address] 63484- 4595 Jul, Medicare welcome exam Z00.00 [facility] [id number] [place] [address] 35437- 0617 Jun, Gastroesophageal reflux disease without esophagitis K21.9 and Generalized abdominal pain R10.84 [facility] [id number] [place] [address] 07725- 4713 Jun, Medicare welcome exam Z00.00 [facility] [id number] [place] [address] 25652- 2273 Jun, [facility] [id number] [place] [address] 01994- 5326 Jun, Medicare welcome exam Z00.00 and Encounter for screening mammogram for malignant neoplasm of breast Z12.31 [facility] [id number] [place] [address] 12458- 3166 02 Jun, 2017 Chronic pain G89.29 [place] [id number] [place] [address] 70121- 1903 May, [place] [address] 82069- 6130 May, Pelvic pain R10.2 [place] [address] 27598- 7171 May, Pelvic pain R10.2 [facility] [address] 57928 -6126 May, Renal calculus, right N20.0 [place] [address] 99148- 2228 May, Hematuria, unspecified type R31.9 and Nephrolithiasis N20.0 [facility] [place] [address] 11656 -3070 May, Dysuria R30.0 and Nephrolithiasis N20.0 [place] [id number] [place] [address] 23978- 3886 May, [facility] [place] [id number] [place] [address] 90251 -8364 May, Abdominal pain R10.9 and Kidney stone N20.0 [place] [id number] [place] [address] 79210- 7931 May, [place] [id number] [place] [address] 97112- 5903 May, Chronic pain G89.29 and Panic attacks F41.0 [place] [address] 40953- 8367 May, Urinary tract infection without hematuria, site unspecified N39.0 [place] [id number] [place] [address] 99988- 9671 Apr, Right lower quadrant abdominal pain R10.31 and Abnormal serum lipase level R74.8 [facility] [address] [address]- 0681 Apr, Recurrent urinary tract infection N39.0 [facility] [id number] [place] [address] 89917- 7197 Apr, UTI symptoms R39.9 ; Recurrent urinary tract infection N39.0 and Pelvic pain R10.2 [facility] [address] [place] [address] 58827- 8339 Apr, Chronic pain G89.29 and Panic attacks F41.0 [facility] [address] [place] [address] 65500- 6077 Apr, Dysuria R30.0 [facility] [address] [place] [address] 16409- 2713 Apr, [facility] [address] [place] [address] 16566- 7444 Apr, Dysuria R30.0 and Urinary tract infection without hematuria , site unspecified N39.0 [facility] [address] [address]- 1000 Mar, UTI symptoms R39.9 [facility] [id number] [place] [address] 54169- 0817 Mar, [facility] [address] [place] [address]- 2713 Mar, Panic attacks F41.0 and Chronic pain G89.29 [facility] [address] [place] [address]- 4809 Mar, [facility] [id number] [place] [address] 52046- 6522 09 Mar, 2017 Dysuria R30.0 [facility] [address] [place] [address]- 3866 08 Mar, 2017 Dysuria R30.0 [facility] [id number] [place] [address] 63124- 3862 Feb, Chronic pain G89.29 ; Shortness of breath R06.02 ; Weight loss R63.4 ; Encounter for immunization Z23 ; Bone pain M89.8X9 ; Right anterior knee pain M25.561 and Cough R05 [place] [id number] [place] [address] 54083- 7482 Feb, Shortness of breath R06.02 [place] [address] 78506- 7836 Feb, [place] [address] 03773- 1309 Feb, Panic attacks F41.0 and Chronic pain G89.29 [place] [address] 14949- 0633 Feb, [place] [address] 06661- 8408 Feb, Panic attacks F41.0 ; Shortness of breath R06.02 and Encounter for immunization Z23 [place] [address] 09439- 6949 Jan, [place] [id number] [place] [address] 47449- 0811 Jan, Anxiety F41.9 and Chronic pain G89.29 [place] [address] 31908- 2237 Dec, Anxiety F41.9 and Chronic pain G89.29 [place] [address] 19570- 0627 Nov, Chronic pain G89.29 [place] [address] 43316- 5613 Nov, Anxiety F41.9 [place] [id number] [place] [address] 42818- 3043 Nov, Chronic pain G89.29 ; Essential hypertension I10 and Other emphysema J43.8 [facility] [id number] [place] [address] 01548- 1674 Oct, Anxiety F41.9 [facility] [id number] [place] [address] 55997- 4284 Oct, [facility] [id number] [place] [address] 81388- 6691 Oct, Chronic pain G89.29 [facility] [id number] [place] [address] 94211- 4056 September, Recurrent UTI N39.0 ; Neuropathy G62.9 and Anxiety F41.9 [facility] [id number] [place] [address] 44588- 8641 September, [facility] [id number] [place] [address] 31380- 2916 September, Chronic pain G89.29 [facility] [id number] [place] [address] 42566- 5864 September, [facility] [id number] [place] [address] 04501- 3122 Aug, Post-traumatic stress disorder, chronic F43.12 ; Chronic urinary tract infection N39.0 ; Gastroesophageal reflux disease without esophagitis K21.9 ; Chronic pain G89.29 ; Essential hypertension I10 and Tobacco abuse Z72.0 [facility] [id number] [place] [address] 39479 -2465 Aug, [facility] [id number] [place] [address] 73003- 3961 Aug, Chronic pain G89.29 [facility] [id number] [place] [address] 27187- 9767 Aug, Insomnia, unspecified type G47.00 [facility] [id number] [place] [address] 15931- 3498 Aug, [facility] [address] [facility] [id number] [place] [address]- 4138 Jul, Chronic pain G89.29 [facility] [address] [facility] [id number] [place] [address]- 4188 Jul, [facility] [address] [place] [address]- 9347 Jul, [facility] [address] [place] [address]- 4548 Jul, [facility] [address] [address]- 7901 Jul, Recurrent UTI (urinary tract infection) N39.0 [facility] [address] [address]- 5051 Jul, [facility] [id number] [place] [address] 86550- 6374 Jun, Chronic pain G89.29 [facility] [address] [place] [address]- 9383 17 Jun, 2016 [facility] [address] [place] [address]- 7117 Jun, [facility] [address] [place] [address]- 1955 May, Chronic pain G89.29 [facility] [address] [place] [address]- 8722 May, Weight loss R63.4 and Shortness of breath R06.02 [facility] [address] [address]- 0331 May, Chronic pain G89.29 ; Weight loss R63.4 and Tobacco abuse Z72.0 [facility] [address] [address]- 8244 May, [facility] [id number] [place] [address] 42177- 7750 May, Hypoxia R09.02 [facility] [id number] [place] [address] 78737- 2266 May, [facility] [id number] [place] [address] 31843- 1296 May, Pulmonary emphysema, unspecified emphysema type J43.9 [facility] [id number] [place] [address] 48650 -9470 May, [facility] [id number] [place] [address] 74919- 0403 May, [facility] [id number] [place] [address] 53746- 9596 May, [place] [id number] [place] [address] 78143- 2700 May, Chronic pain G89.29 ; Encounter for immunization Z23 ; Right anterior knee pain M25.561 and Cough R05 [place] [id number] [place] [address] 50009- 6237 Apr, Chronic pain G89.29 [place] [id number] [place] [address] 37848- 7021 Apr, [place] [id number] [place] [address] 74667- 0849 Apr, Generalized anxiety disorder F41.1 and Depression, unspecified depression type F32.9 [facility] [address] [place] [address] 38774- 0212 Apr, Chronic pain G89.29 ; Hypokalemia E87.6 and Insomnia, unspecified type G47.00 [place] [id number] [place] [address] 28158- 2158 Apr, [place] [id number] [place] [address] 28279- 3689 Apr, Chronic pain G89.29 [facility] [address] [id number] [place] [address]- 6463 Apr, [facility] [address] [facility] [id number] [place] [address]- 1930 Mar, [facility] [place] [facility] [address] [facility] [id number] [place] [address]- 9020 Mar, Insomnia, unspecified type G47.00 [facility] [address] [facility] [id number] [place] [address]- 7021 Mar, Chronic pain G89.29 [facility] [place] [facility] [address] [id number] [place] [address]- 7632 Mar, [facility] [place] [facility] [address] [facility] [id number] [place] [address]- 9838 Feb, [facility] [place] [facility] [address] [facility] [id number] [place] [address]- 4258 Feb, [facility] [place] [facility] [address] [facility] [id number] [place] [address]- 2845 Feb, [facility] [place] [facility] [address] [facility] [id number] [place] [address]- 0457 Feb, [facility] [place] [facility] [address] [facility] [id number] [place] [address]- 5493 Feb, [facility] [place] [facility] [address] [facility] [id number] [place] [address]- 3984 29 Jan, 2015 [facility] [place] [facility] [address] [facility] [id number] [place] [address]- 3375 26 Jan, 2015 [facility] [place] [facility] [address] [id number] [place] [address]- 9989 20 Sep, 2015 [facility] [place] [facility] [address] [facility] [id number] [place] [address]- 5611 13 Sep, 2015 [facility] [place] [facility] [address] [facility] [id number] [place] [address]- 8277 12 Jan, 2015 [facility] [place] [facility] [id number] [place] [address] 48278- 7357 07 Jan, 2016 Chronic pain G89.29 [facility] [id number] [place] [address] 68305- 1665 Jan, Chronic pain G89.29 and Fibromyalgia M79.7 [facility] [id number] [place] [address] 48909- 1523 Dec, Depression, unspecified depression type F32.9 and Generalized anxiety disorder 300.02 [facility] [id number] [place] [address] 55602- 7493 Dec, Dysthymia F34.1 ; Insomnia, unspecified type G47.00 and Chronic pain G89.29 [facility] [id number] [place] [address] 50505- 4764 Dec, Chronic pain G89.29 [facility] [id number] [place] [address] 61950- 0852 Dec, Insomnia, unspecified type G47.00 [facility] [id number] [place] [address] 26025- 1828 Dec, Fibromyalgia M79.7 and Chronic pain G89.29 [facility] [id number] [place] [address] 66943- 7433 Dec, [facility] [id number] [place] [address] 94028- 6595 Dec, [facility] [id number] [place] [address] 95719- 4821 Dec, [facility] [id number] [place] [address] 24810- 4612 Dec, [facility] [id number] [place] [address] 18974- 3612 Dec, Chronic pain G89.29 [facility] [id number] [place] [address] 53517- 2905 Dec, [place] [address] [place] [address]- 8804 Dec, [facility] [id number] [place] [address] 61794- 1184 Dec, [facility] [id number] [place] [address] 18987- 7359 Dec, Chronic pain G89.29 and Dysthymia F34.1 [facility] [id number] [place] [address] 64998- 3291 Nov, [facility] [id number] [place] [address] 56753- 6510 Nov, Hypokalemia E87.6 and Chronic pain G89.29 [place] [id number] [place] [address] 62683- 9501 Nov, Back pain M54.9 and Pain in right knee M25.561 [facility] [id number] [place] [address] 46715- 9594 Nov, [facility] [id number] [place] [address] 89063- 6169 Nov, Chronic pain G89.29 [facility] [id number] [place] [address] 85337- 4632 Nov, Chronic pain G89.29 ; Weight loss R63.4 ; Bone pain M89.8X9 and Insomnia, unspecified type G47.00 [facility] [id number] [place] [address] 44050- 6167 Nov, Chronic pain G89.29 [facility] [id number] [place] [address] 99517- 6280 Nov, Chronic pain G89.29 [facility] [id number] [place] [address] 14841- 5204 Oct, Chronic pain G89.29 [facility] [id number] [place] [address] 91351- 1133 Oct, UTI symptoms R39.9 [facility] [id number] [place] [address] 42545- 4324 Oct, Chronic pain G89.29 [facility] [address] [id number] [place] [address] 22041- 2544 Oct, Chronic pain G89.29 [facility] [id number] [place] [address] 60461- 8043 Oct, Chronic pain G89.29 [facility] [id number] [place] [address] 97533- 5892 Oct, Right upper quadrant abdominal pain R10.11 [facility] [id number] [place] [address] 70257- 3899 Oct, Chronic pain G89.29 [facility] [id number] [place] [address] 92971- 3659 Oct, [facility] [id number] [place] [address] 10109- 1072 September, Chronic pain G89.29 [facility] [id number] [place] [address] 46284- 6011 September, Dysuria R30.0 and Urinary tract infection without hematuria , site unspecified N39.0 [facility] [id number] [place] [address] 43077- 2498 September, [facility] [id number] [place] [address] 97551- 2549 September, Dysuria R30.0 [facility] [id number] [place] [address] 83267- 3306 September, Chronic pain G89.29 [facility] [id number] [place] [address] 93502- 4564 September, Chronic pain G89.29 and Essential hypertension I10 [facility] [id number] [address] September, [facility] [id number] [place] [address] 68153- 9069 September, [facility] [id number] [place] [address] 00902- 0225 September, [facility] [id number] [place] [address] 25646- 8522 Aug, UTI symptoms R39.9 [facility] [id number] [place] [address] 25116- 1504 Aug, Dysuria R30.0 [facility] [id number] [place] [address] 68070- 5354 Aug, [facility] [id number] [place] [address] 58091- 7257 Aug, [facility] [id number] [place] [address] 96188- 2138 Aug, [facility] [id number] [place] [address] 87204- 6397 Aug, Chronic pain G89.29 [facility] [id number] [place] [address] 36010- 6758 Aug, Dysthymia F34.1 [facility] [id number] [place] [address] 07732- 9112 Aug, Conjunctivitis, unspecified conjunctivitis type, unspecified laterality H10.9 [facility] [id number] [place] [address] 73490- 5990 Jul, Chronic pain G89.29 ; Back pain M54.9 ; Tobacco abuse Z72.0 and Weight decrease R63.4 [facility] [id number] [place] [address] 86296- 6467 Jul, [facility] [id number] [place] [address] 31976- 0463 Jul, [facility] [address] [facility] [id number] [address] 24 Jul, 2015 Chronic pain G89.29 [facility] [address] [facility] [id number] [place] [address] 22 Jul, 2015 [facility] [id number] [place] [address]- 1797 21 Jul, 2015 [facility] [id number] [address] 395[address] 18 Jul, 2015 [facility] [id number] [place] [address]- [address] 17 Jul, 2015 [facility] [id number] [place] [address], [place] [address] 17 Jul, 2015 Chronic pain G89.29 [facility] [id number] [place] [address] 3[address] 16 Jul, 2015 Chronic pain G89.29 [facility] [id number] [place] [address]- 8597 15 Jul, 2015 [facility] [id number] [address]- 8898 10 Jul, 2015 [facility] [id number] [address]- 5945 07 Jul, 2015 [facility] [id number] [address] 7293 Jul, [facility] [id number] [address] 5394 Jun, [facility] [id number] [address] 2456 29 Jun, 2015 Depression, unspecified depression type F32.9 [facility] [id number] [address]- 1719 26 Jun, 2015 Pain in right knee M25.561 [facility] [id number] [place] [address]- 0192 Jun, Chronic pain G89.29 ; Back pain M54.9 ; Bone pain M89.8X9 and Weight loss R63.4 [facility] [id number] [place] [address]- 7796 Jun, [facility] [address] [address] May, [facility] [address] [address]- [address]65 May, UTI symptoms R39.9 ; Pain in right knee M25.561 ; Right low back pain, with sciatica presence unspecified M54.5 ; Right foot pain M79.671 ; Hypokalemia E87.6 and Screening, lipid Z13.220 [facility] [id number] [place] [address]- 2018 May, [facility] [address] [address]- 1871 May, [facility] [address] [address]- 0736 Mar, [facility] [id number] [place] [address]- 6993 Mar, [facility] [id number] [place] [address]- 5043 Mar, Hypokalemia E87.6 [facility] [id number] [place] [address] 6[address]- 0590 16 Mar, 2015 Pain in right leg M79.604 ; Encounter for immunization Z23 ; Pain in right knee M25.561 and Hypokalemia E87.6 [facility] [id number] [place] [address]- 3872 Jan, [facility] [address] [address]- 2461 Jan, [facility] [address] [id number] [address]- 2960 Jan, Abdominal pain, generalized 789.07 [facility] [id number] [address]- 9436 Jan, Abdominal pain, generalized 789.07 [facility] [id number] [address]- 0516 Dec, [facility] [id number] [address]- 4276 Dec, [facility] [id number] [place] [address]- 3203 Dec, [facility] [id number] [address]- 3796 Nov, Hallux valgus 735.0 and Hammertoe 735.4 [facility] [id number] [address]- 0540 Nov, [facility] [id number] [address]- 9648 Nov, Hallux valgus 735.0 and Hammer toe 735.4 [facility] [address] [id number] [address]- 9636 Oct, [facility] [id number] [address]- 4326 Oct, [facility] [address] [id number] [address]- 0686 Oct, Pre-op evaluation V72.84 [facility] [id number] [address]- 3256 Oct, [facility] [id number] [address]- 2546 Oct, [facility] [address] [id number] [address]- 7360 September, [facility] [address] [id number] [address]- 5229 September, [facility] [id number] [place] [address]- 2736 September, Hallux valgus (acquired) 735.0 and Other hammer toe ( acquired) 735.4 [facility] [address] [facility] [id number] [place] [address], [place] [address]- 6832 Aug, [facility] [address] [facility] [id number] [place] [address]- 1625 Aug, [facility] [id number] [place] [address], [place] [address]- 5757 Jul, [facility] [id number] [address]- 2671 Jul, [facility] [id number] [place] [address]- 1291 Jul, [facility] [id number] [place] [address]- 2534 Jul, [facility] [id number] [address]- 4558 Jul, [facility] [id number] [address]- 3985 Jul, [facility] [id number] [address]- 7683 Jul, [facility] [place] [facility] [address] [id number] [address]- 8989 Jul, [facility] [place] [facility] [id number] [address]- 5302 Jun, [facility] [place] [facility] [address] [facility] [id number] [place] [address]- 5494 Jun, [facility] [place] [facility] [id number] [address]- 2130 Jun, [facility] [place] [facility] [address] [id number] [place] [address]- 1582 Jun, [facility] [place] [facility] [address] [id number] [place] [address]- 4931 Jun, [facility] [place] [facility] [address] [id number] [place] [address]- 5606 Jun, 2014 [facility] [place] [facility] [address] [id number] [place] [address]- 0375 Jun, 2014 [facility] [place] [facility] [address] [id number] [place] [address]- 3643 Jun, [facility] [place] [facility] [address] [id number] [place] [address]- 7534 Jun, [facility] [place] [facility] [address] [id number] [place] [address]- 6887 Jun, [facility] [place] [facility] [address] [id number] [place] [address]- 3789 May, [facility] [place] [facility] [address] [id number] [place] [address]- 4465 May, [facility] [place] [facility] [address] [facility] [id number] [place] [address]- 0356 May, [facility] [place] [facility] [address] [id number] [place] [address]- 1331 May, [facility] [place] [facility] [address] [id number] [place] [address]- 4736 May, [facility] [place] [facility] [address] [id number] [place] [address]- 7736 May, [facility] [place] [facility] [address] [id number] [place] [address]- 1236 May, [facility] [place] [facility] [address] [id number] [place] [address]- 0043 May, [facility] [place] [facility] [address] [id number] [place] [address]- 6151 May, [facility] [place] [facility] [address] [id number] [place] [address]- 1573 May, [facility] [place] [facility] [address] [id number] [place] [address]- 7363 May, [facility] [place] [facility] [address] [id number] [place] [address]- 7759 May, [facility] [place] [facility] [address] [id number] [place] [address]- 9100 May, [facility] [place] [facility] [address] [id number] [place] [address]- 8016 May, [facility] [place] [facility] [address] [id number] [place] [address]- 4039 May, [facility] [place] [facility] [address] [id number] [place] [address]- 5317 May, [facility] [place] [facility] [address] [id number] [place] [address]- 7867 May, [facility] [place] [facility] [address] [id number] [place] [address]- 5763 May, [facility] [place] [facility] [address] [id number] [place] [address]- 9220 Apr, [facility] [place] [facility] [address] [id number] [place] [address]- 6852 Apr, [facility] [place] [facility] [address] [id number] [place] [address]- 0287 Apr, [facility] [place] [facility] [address] [id number] [place] [address]- 4149 Apr, [facility] [place] [facility] [address] [id number] [place] [address]- 6196 Apr, [facility] [place] [facility] [address] [id number] [place] [address]- 6356 Apr, [facility] [place] [facility] [address] [id number] [place]23 Apr, [facility] [place] [facility] [address] [id number] [place] [address]- 3418 Apr, [facility] [place] [facility] [address] [id number] [place] [address]- 4932 Apr, [facility] [place] [facility] [address] [id number] [place] [address]- 6658 Mar, [facility] [place] [facility] [address] [id number] [place] [address]- 7284 Mar, [facility] [place] [facility] [address] [id number] [place] [address]- 2818 Mar, [facility] [place] [facility] [address] [id number] [place] [address]- 8948 Mar, [facility] [place] [facility] [address] [id number] [place] [address]- 7051 Mar, [facility] [place] [facility] [address] [id number] [place] [address]- 6587 Feb, [facility] [place] [facility] [address] [id number] [place] [address]- 6665 Feb, [facility] [place] [facility] [address] [id number] [place] [address]- 7467 Feb, [facility] [place] [facility] [address] [id number] [place] [address]- 9218 Feb, [facility] [place] [facility] [address] [id number] [place] 0966 Feb, [facility] [place] [facility] [address] [id number] [place] 5282 Feb, [facility] [place] [facility] [address] [id number] [place]- 8500 Feb, [facility] [place] [facility] [address] [id number] [place] [address]- 2869 09 Feb, 2013 [facility] [place] [facility] [address] [id number] [place] [address]- 6610 Feb, 2013 [facility] [place] [facility] [address] [id number] [place] [address]- 1890 Feb, 2013 [facility] [place] [facility] [address] [id number] [place] [address]- 5249 Feb, 2013 [facility] [place] [facility] [address] [id number] [place] [address]- 9784 Feb, 2013 [facility] [place] [facility] [address] [id number] [place] [address]- 9912 Feb, 2013 [facility] [place] [facility] [address] [id number] [place] [address]- 0214 Feb, 2013 [facility] [place] [facility] [address] [id number] [place] [address]- 9751 Feb, 2013 [facility] [place] [facility] [address] [id number] [place] [address]- 4723 Feb, 2013 [facility] [place] [facility] [address] [id number] [place] [address]- 2008 23 Jan, 2013 [facility] [place] [facility] [address] [id number] [place] [address]- 9094 23 Sep, 2013 [facility] [place] [facility] [address] [id number] [place] [address]- 3074 20 Sep, 2013 [facility] [place] [facility] [address] [id number] [place] [address]- 3516 19 Sep, 2013 [facility] [place] [facility] [address] [id number] [place] [address]- 9838 11 Sep, 2013 [facility] [place] [facility] [address] [id number] [place] [address]- 5757 11 Sep, 2013 [facility] [place] [facility] [address] [id number] [place] [address]- 3712 Jan, [facility] [place] [facility] [address] [id number] [place] [address]- 3943 Jan, [facility] [place] [facility] [address] [id number] [place] [address]- 9896 Dec, [facility] [place] [facility] [address] [id number] [place] [address]- 5666 Dec, [facility] [place] [facility] [address] [id number] [place] [address]- 2882 Nov, [facility] [place] [facility] [address] [id number] [place] [address]- 1395 Nov, [facility] [place] [facility] [address] [id number] [place] [address]- 8564 Nov, [facility] [place] [facility] [address] [id number] [place] [address]- 1243 Nov, [facility] [place] [facility] [address] [id number] [place] [address]- 6554 Nov, [facility] [place] [facility] [address] [id number] [place] [address]- 7362 Nov, [facility] [place] [facility] [address] [id number] [place] [address]- 4746 Nov, [facility] [place] [facility] [address] [id number] [place] [address]- 4889 Nov, [facility] [place] [facility] [address] [id number] [place] [address]- 9449 Nov, [facility] [place] [facility] [address] [id number] [place] [address]- 5969 Oct, [facility] [place] [facility] [address] [id number] [place] [address]- 5226 Oct, [facility] [place] [facility] [address] [id number] [place] [address]- 1617 Oct, [facility] [place] [facility] [address] [id number] [place] [address]- 8898 Oct, [facility] [address] [id number] [place] [address]- 1342 Oct, [facility] [place] [facility] [address] [id number] [place] [address]- 7252 Oct, [facility] [place] [facility] [address] [id number] [place] [address]- 0669 September, [facility] [place] [facility] [address] [id number] [place] [address]- 7526 September, [facility] [place] [facility] [address] [id number] [place] [address]- 2488 September, [facility] [place] [facility] [address] [id number] [place] [address]- 3405 September, [facility] [place] [facility] [address] [id number] [place] [address]- 7395 September, [facility] [place] [facility] [address] [id number] [place] [address]- 3123 September, [facility] [place] [facility] [address] [id number] [place] [address]- 6951 September, [facility] [place] [facility] [address] [id number] [place] [address]- 6424 September, [facility] [place] [facility] [address] [id number] [place] [address]- 4158 September, [facility] [place] [facility] [address] [id number] [place] [address]- 7291 September, [facility] [place] [facility] [address] [id number] [place] [address]- 5590 September, [facility] [place] [facility] [address] [id number] [place] [address]- 8064 September, [facility] [place] [facility] [address] [id number] [place] [address]- 0525 September, [facility] [place] [facility] [address] [id number] [place] [address]- 9701 September, [facility] [place] [facility] [address] [id number] [place] [address]- 5905 September, [facility] [place] [facility] [address] [id number] [place] 4616 September, [facility] [place] [facility] [address] [id number] [place] [address]- 4930 September, [facility] [place] [facility] [address] [id number] [place] [address]- 2955 September, [facility] [place] [facility] [address] [id number] [place] [address]- 7019 September, [facility] [place] [facility] [address] [id number] [place] [address]- 3378 September, [facility] [place] [facility] [address] [id number] [place] [address]- 6242 Aug, [facility] [place] [facility] [address] [id number] [place] [address]- 6078 Aug, [facility] [place] [facility] [address] [id number] [place] [address]- 1892 Aug, [facility] [place] [facility] [address] [id number] [place] [address]- 0293 Aug, [facility] [place] [facility] [address] [id number] [place] [address]- 4924 Aug, [facility] [place] [facility] [address] [id number] [place] [address]- 8933 18 Aug, 2013 [facility] [place] [facility] [address] [id number] [place] [address]- 4307 16 Aug, 2013 [facility] [place] [facility] [address] [id number] [place] [address]- 2088 16 Aug, 2013 [facility] [place] [facility] [address] [id number] [place] [address]- 4147 15 Aug, 2013 [facility] [place] [facility] [address] [id number] [place] [address]- 2197 15 Aug, 2013 [facility] [place] [facility] [address] [id number] [place] [address]- 9614 14 Aug, 2013 [facility] [place] [facility] [address] [id number] [place] [address]- 8361 Aug, [facility] [place] [facility] [address] [id number] [place] [address]- 3754 Aug, [facility] [place] [facility] [address] [id number] [place] [address]- 5847 Aug, [facility] [place] [facility] [address] [id number] [place] [address]- 2872 Aug, [facility] [place] [facility] [address] [id number] [place] [address]- 1004 Jul, [facility] [place] [facility] [address] [id number] [place] [address]- 7208 31 Jul, 2013 [facility] [place] [facility] [address] [id number] [place] [address]- 2251 27 Jul, 2013 [facility] [place] [facility] [address] [id number] [place] [address]- 0592 27 Jul, 2013 [facility] [place] [facility] [address] [id number] [place] [address]- 3512 Jul, [facility] [place] [facility] [address] [id number] [place] [address]- 8773 20 Jul, 2013 [facility] [place] [facility] [address] [id number] [place] [address]- 8843 18 Jul, 2013 [facility] [place] [facility] [address] [id number] [place] [address]- 9248 18 Jul, 2013 [facility] [place] [facility] [address] [id number] [place] [address]- 6284 06 Jul, 2013 [facility] [place] [facility] [address] [id number] [place] [address]- 6937 06 Jul, 2013 [facility] [place] [facility] [address] [id number] [place] [address]- 1542 Jul, [facility] [place] [facility] [address] [id number] [place] [address]- 0352 Jul, [facility] [place] [facility] [address] [id number] [place] [address]- 3684 Jul, [facility] [place] [facility] [address] [id number] [place] [address]- 6775 Jul, [facility] [place] [facility] [address] [id number] [place] [address]- 7248 Jul, [facility] [place] [facility] [address] [id number] [place] [address]- 4607 Jun, [facility] [place] [facility] [address] [id number] [place] [address]- 8828 Jun, [facility] [place] [facility] [address] [id number] [place] [address] Jun, [facility] [place] [facility] [address] [id number] [place] [address] Jun, [facility] [place] [facility] [address] [id number] [place] [address] Jun, [facility] [place] [facility] [address] [id number] [place] [address] Jun, [facility] [place] [facility] [address] [id number] [place] [address]757 May, [facility] [place] [facility] [address] [id number] [place] [address]346 May, [facility] [place] [facility] [address] [id number] [place] [address] May, [facility] [place] [facility] [address] [id number] [place] [address] May, [facility] [address] [id number] [place] [address] May, [facility] [place] [facility] [address] [id number] [place] [address] May, [facility] [place] [facility] [address] [id number] [place] [address] May, [facility] [place] [facility] [address] [id number] [place] [address]- 1587 May, [facility] [place] [facility] [address] [id number] [place] [address] May, [facility] [place] [facility] [address] [id number] [place] [address]- 3946 May, [facility] [place] [facility] [address] [id number] [place] [address]- [address]20 May, [facility] [place] [facility] [address] [id number] [place] [address]- 8090 May, [facility] [place] [facility] [address] [id number] [place] [address] May, [facility] [place] [facility] [address] [id number] [place] [address]53 May, [facility] [place] [facility] [address] [id number] [place] [address] May, [facility] [place] [facility] [address] [id number] [place] [address]- [address] Apr, [facility] [place] [facility] [address] [id number] [place] [address] Apr, [facility] [place] [facility] [address] [id number] [place] [address] Apr, [facility] [place] [facility] [address] [id number] [place] [address] 3616 Apr, [facility] [place] [facility] [address] [id number] [place] [address]- 5820 Apr, [facility] [address] [id number] [place] [address]- [address]481 Apr, [facility] [address] [id number] [place] [address] Apr, [facility] [address] [id number] [place] [address] 18[address] Apr, [facility] [address] [id number] [place] [address]- 4[address] Apr, [facility] [address] [id number] [place] [address]170 Apr, [facility] [address] [id number] [place] [address]498 Mar, [facility] [address] [id number] [place] [address] Mar, [facility] [address] [id number] [place] [address] 9615 Mar, [facility] [address] [id number] [place] [address] 3315 Mar, [facility] [address] [id number] [place] [address] Mar, [facility] [address] [id number] [place] [address] Mar, [facility] [place] [facility] [address] [id number] [place] [address]60 Mar, [facility] [place] [facility] [address] [id number] [place] [address]- 9873 Mar, [facility] [place] [facility] [address] [id number] [place] [address]- [address] Mar, [facility] [place] [facility] [address] [id number] [place] [address]- [address] Mar, [facility] [place] [facility] [address] [id number] [place] [address]- [address] 20 Mar, 2013 [facility] [place] [facility] [address] [id number] [place] [address]- 9431 20 Mar, 2013 [facility] [place] [facility] [address] [id number] [place] [address]- [address]653 19 Mar, 2013 [facility] [place] [facility] [address] [id number] [place] [address]- 6384 19 Mar, 2013 [facility] [place] [facility] [address] [id number] [place] [address]- [address] 18 Mar, 2013 [facility] [place] [facility] [address] [id number] [place] [address]- [address]329 18 Mar, 2013 [facility] [place] [facility] [address] [id number] [place] [address]- [address]255 14 Mar, 2013 [facility] [place] [facility] [address] [id number] [place] [address]- 9[address] 14 Mar, 2013 [facility] [place] [facility] [address] [id number] [place] [address]- [address] Mar, [facility] [place] [facility] [address] [id number] [place] [address]- [address]21 Mar, [facility] [place] [facility] [address] [id number] [place] [address]- [address] Mar, [facility] [place] [facility] [address] [id number] [place] [address]- 1889 Mar, [facility] [place] [facility] [address] [id number] [place] [address]- 96[address] Mar, [facility] [place] [facility] [address] [id number] [place] [address]- 2692 Feb, [facility] [place] [facility] [address] [id number] [place] [address]- 2544 18 Feb, 2013 [facility] [place] [facility] [address] [id number] [place] [address]- 6984 16 Feb, 2013 [facility] [place] [facility] [address] [id number] [place] [address]- 6[address] 16 Feb, 2013 [facility] [place] [facility] [address] [id number] [place] [address]- 9975 15 Feb, 2013 [facility] [place] [facility] [address] [id number] [place] [address]- 3166 Feb, [facility] [place] [facility] [address] [id number] [place] [address]- 7863 Feb, [facility] [place] [facility] [address] [id number] [place] [address]- 6600 Feb, [facility] [place] [facility] [address] [id number] [place] [address]- 4199 04 Feb, 2013 [facility] [place] [facility] [address] [id number] [place] [address]- 0405 Feb, [facility] [place] [facility] [address] [id number] [place] [address]- [address]677 30 Jan, 2013 [facility] [place] [facility] [address] [id number] [place] [address]- [address]389 26 Jan, 2013 [facility] [place] [facility] [address] [id number] [place] [address]- 2792 24 Jan, 2013 [facility] [place] [facility] [address] [id number] [place] [address] 23 Jan, 2012 [facility] [place] [facility] [address] [id number] [place] [address] 7[address] 17 Jan, 2013 [facility] [place] [facility] [address] [id number] [place] [address] 8351 28 Dec, 2012 [facility] [place] [facility] [address] [id number] [place] [address] 87[address] Dec, [facility] [place] [facility] [address] [id number] [place] [address] 6193 Dec, [facility] [place] [facility] [address] [id number] [place] [address] 5185 Dec, [facility] [address] [id number] [place] [address]- 6219 Dec, [facility] [address] [id number] [place] [address]17 Dec, [facility] [address] [id number] [place] [address] 4804 Dec, [facility] [address] [id number] [place] [address] 5714 Nov, [facility] [address] [id number] [place] [address] 3871 Nov, [facility] [address] [id number] [place] [address] 2761 Nov, [facility] [address] [id number] [place] [address]- 7572 Nov, [facility] [address] [id number] [place] [address]- 9281 Nov, [facility] [address] [id number] [place] [address]- 5937 Oct, [facility] [address] [id number] [place] [address]- 9861 Oct, [facility] [address] [id number] [place] [address]- 5783 Oct, [facility] [address] [id number] [place] [address]- 1662 September, [facility] [place] [facility] [address] [id number] [place] [address]- 4069 September, [facility] [place] [facility] [address] [id number] [place] [address]- 2479 September, [facility] [address] [id number] [place] [address]- 8647 September, [facility] [address] [id number] [place] [address]- 2144 September, [facility] [address] [id number] [place] [address]- 4065 September, [facility] [address] [id number] [place] [address]- 9661 September, [facility] [address] [id number] [place] [address]- 1185 Aug, [facility] [address] [id number] [place] [address]- 4667 Aug, [facility] [address] [id number] [place] [address]- 2941 Aug, [facility] [address] [id number] [place] [address]- 1259 29 Jul, 2012 [facility] [address] [id number] [place] [address]- 0938 Jul, [facility] [address] [id number] [place] [address]- 6314 Jul, [facility] [address] [id number] [place] [address]- 1232 Jul, [facility] [address] [id number] [place] [address]- 3132 18 Jul, 2012 [facility] [address] [id number] [place] [address]- 4366 18 Jul, 2012 [facility] [address] [id number] [place] [address]- 8777 13 Jul, 2012 [facility] [place] [facility] [address] [id number] [place] [address]- 6747 28 Jun, 2012 [facility] [address] [id number] [place] [address]- 9949 27 Jun, 2012 [facility] [address] [id number] [place] [address]- 2453 Jun, [facility] [address] [id number] [place] [address] 2546 Jun, [facility] [address] [id number] [place] [address] 2546 Jun, [facility] [address] [id number] [place] [address] 2546 Jun, [facility] [place] [facility] [address] [id number] [place] [address] 2546 Jun, [facility] [address] [id number] [place] [address]- 0356 Jun, [facility] [address] [id number] [place] [address] 2546 Jun, [facility] [address] [id number] [place] [address]- 5741 Jun, [facility] [address] [id number] [place] [address]- 6877 May, [facility] [address] [id number] [place] [address]- 0590 May, [facility] [address] [facility] [id number] [place] [address]- 6487 May, [facility] [address] [id number] [place] [address] 2546 May, [facility] [address] [id number] [place] [address] 2549 May, [facility] [place] [facility] [address] [id number] [place] [address]- 6878 May, [facility] [place] [facility] [address] [id number] [place] [address] 2546 Apr, [facility] [address] [id number] [place] [address]- 3326 Apr, [facility] [place] [facility] [address] [id number] [place] [address]- 3371 Apr, [facility] [place] [facility] [address] [id number] [place] [address]- 8897 Apr, [facility] [place] [facility] [address] [id number] [place] [address]- 2493 Apr, [facility] [place] [facility] [address] [id number] [place] [address]- 9087 Apr, [facility] [place] [facility] [address] [id number] [place] [address]- 0103 Apr, [facility] [place] [facility] [address] [id number] [place] [address]- 8983 Mar, [facility] [place] [facility] [address] [id number] [place] [address]- 9387 Mar, [facility] [place] [facility] [address] [id number] [place] [address]- 9572 27 Mar, 2012 [facility] [place] [facility] [address] [id number] [place] [address]- 6833 Mar, [facility] [place] [facility] [address] [facility] [id number] [place] [address]- 1059 Mar, [facility] [place] [facility] [address] [facility] [id number] [place] [address]- 6157 18 Mar, 2012 [facility] [place] [facility] [address] [id number] [place] [address]- 4913 18 Mar, 2012 [facility] [place] [facility] [address] [id number] [place] [address]- 0413 16 Mar, 2012 [facility] [place] [facility] [address] [id number] [place] [address]- 5142 16 Mar, 2012 [facility] [place] [facility] [address] [facility] [id number] [place] [address]- 9694 16 Mar, 2012 [facility] [place] [facility] [address] [id number] [place] [address]- 8029 Mar, [facility] [place] [facility] [address] [id number] [place] [address]- 8224 Mar, [facility] [place] [facility] [address] [id number] [place] [address] Mar, [facility] [place] [facility] [address] [facility] [id number] [place] [address]- 5256 Mar, [facility] [place] [facility] [address] [id number] [place] [address]- 2329 Mar, [facility] [place] [facility] [address] [id number] [place] [address]- 1441 Mar, [facility] [place] [facility] [address] [facility] [id number] [place] [address]- 1588 Mar, [facility] [place] [facility] [address] [facility] [id number] [place] [address]- 2532 Feb, [facility] [place] [facility] [address] [facility] [id number] [place] [address]- 6722 Feb, [facility] [place] [facility] [address] [facility] [id number] [place] [address]- 9822 Feb, [facility] [place] [facility] [address] [facility] [id number] [place] [address]- 1788 Feb, [facility] [place] [facility] [address] [facility] [id number] [place] [address]- 3181 Feb, [facility] [place] [facility] [address] [facility] [id number] [place] [address]- 7752 Feb, [facility] [place] [facility] [address] [facility] [id number] [place] [address]- 9434 Feb, [facility] [place] [facility] [address] [facility] [id number] [place] [address]- 6821 Feb, [facility] [place] [facility] [address] [facility] [id number] [place] [address]- 7117 Feb, [facility] [place] [facility] [address] [id number] [place] [address]- 0310 04 Feb, 2012 [facility] [place] [facility] [address] [id number] [place] [address]- 6179 Feb, [facility] [place] [facility] [address] [id number] [place] [address] 2546 27 Jan, 2011 [facility] [place] [facility] [address] [id number] [place] [address] 2546 25 Jan, 2011 [facility] [place] [facility] [address] [id number] [place] [address]- 3682 13 Jan, 2012 [facility] [place] [facility] [address] [id number] [place] [address]- 9917 12 Jan, 2012 [facility] [place] [facility] [address] [id number] [place] [address]- 7883 07 Jan, 2012 [facility] [place] [facility] [address] [id number] [place] [address]- 8207 31 Dec, 2011 [facility] [place] [facility] [address] [id number] [place] [address]- 2467 24 Dec, 2011 [facility] [place] [facility] [address] [id number] [place] [address]- 8857 Dec, [facility] [place] [facility] [address] [id number] [place] [address]- 5746 Dec, [facility] [place] [facility] [address] [id number] [place] [address]- 0591 16 Dec, 2011 [facility] [place] [facility] [address] [id number] [place] [address]- 2544 Dec, [facility] [place] [facility] [address] [id number] [place] [address]- 3916 Dec, [facility] [place] [facility] [address] [id number] [place] [address] 2546 Dec, [facility] [place] [facility] [address] [id number] [place] [address]- 6608 Nov, [facility] [place] [facility] [address] [id number] [place] [address]- 8075 Nov, [facility] [place] [facility] [address] [id number] [place] [address]- 3539 Nov, [facility] [place] [facility] [address] [id number] [place] [address]- 6093 Nov, [facility] [place] [facility] [address] [id number] [place] [address]- 2883 Nov, [facility] [place] [facility] [address] [id number] [place] [address]- 0177 Oct, [facility] [place] [facility] [address] [id number] [place] [address]- 0859 Oct, [facility] [place] [facility] [address] [id number] [place] [address]- 7998 September, [facility] [place] [facility] [address] [id number] [place] [address]- 4840 September, [facility] [place] [facility] [address] [id number] [place] [address]- 0904 September, [facility] [place] [facility] [address] [id number] [place] [address]- 1937 September, [facility] [place] [facility] [address] [id number] [place] [address]- 2196 September, [facility] [place] [facility] [address] [id number] [place] [address]- 8969 September, [facility] [place] [facility] [address] [id number] [place] [address]- 2710 September, [facility] [place] [facility] [address] [id number] [place] [address]- 0169 September, [facility] [place] [facility] [address] [id number] [place] [address]- 1798 September, [facility] [place] [facility] [address] [id number] [place] [address]- 5046 September, [facility] [address] [id number] [place] [address]- 9822 September, [facility] [address] [facility] [id number] [place] [address]- 6196 September, [facility] [address] [facility] [id number] [place] [address]- 7166 September, [facility] [address] [id number] [place] [address]- 4599 September, [facility] [address] [id number] [place] [address]- 7599 24 Aug, 2011 [facility] [address] [facility] [id number] [place] [address]- 2140 Aug, [facility] [address] [id number] [place] [address]- 2930 13 Aug, 2011 [facility] [address] [facility] [id number] [place] [address]- 2276 Aug, [facility] [id number] [place] [address]- 6178 23 Jul, 2011 [facility] [address] [id number] [place] [address]- 7153 13 Jul, 2011 [facility] [address] [id number] [place] [address]- 2420 13 Jul, 2011 [facility] [address] [id number] [place] [address]- 6860 28 Jun, [address] [facility] [address] [id number] [id number] 26 Jun, 2011 [facility] [address] [id number] [place] [address]- 1916 13 Jun, 2011 [facility] [place] [facility] [address] [id number] [place] [address]- 0326 10 Jun, 2011 [facility] [place] [facility] [address] [id number] [place] [address]- 4790 07 Jun, 2011 [facility] [address] [id number] [place] [address]- 2676 Jun, [facility] [place] [facility] [address] [id number] [place] [address]46 Jun, [facility] [place] [facility] [address] [id number] [place] [address]- 1246 Jun, [facility] [address] [id number] [place] [address]- 9380 May, [facility] [address] [id number] [place] [address]- 8425 May, [facility] [address] [id number] [place] [address]- 7023 May, [facility] [address] [id number] [place] [address]- 4140 May, [facility] [address] [id number] [place] [address]- 4002 May, [facility] [address] [id number] [place] [address]- 1929 May, [facility] [place] [facility] [address] [id number] [place] [address]- 6369 May, [facility] [place] [facility] [address] [id number] [place] [address]- 5337 May, [facility] [place] [facility] [address] [id number] [place] [address]- 1099 May, [facility] [place] [facility] [address] [id number] [place] [address]- 6830 May, [facility] [place] [facility] [address] [id number] [place] [address]- 7855 17 May, 2011 [facility] [place] [facility] [address] [id number] [place] [address]- 4319 13 May, 2011 [facility] [place] [facility] [address] [id number] [place] [address]- 1290 May, [facility] [place] [facility] [address] [id number] [place] [address]- 0047 May, [facility] [place] [facility] [address] [id number] [place] [address]- 5133 30 Apr, 2011 [facility] [place] [facility] [address] [id number] [place] [address]- 4234 16 Apr, 2011 [facility] [place] [facility] [address] [id number] [place] [address]- 5899 Apr, [facility] [place] [facility] [address] [id number] [place] [address]- 9966 Mar, [facility] [place] [facility] [address] [id number] [place] [address]- 6429 Mar, [facility] [place] [facility] [address] [id number] [place] [address]- 5082 31 Feb, 2011 [facility] [place] [facility] [address] [id number] [place] [address]- 2322 Feb, [facility] [place] [facility] [address] [id number] [place] [address]- 0948 Feb, [facility] [place] [facility] [address] [id number] [place] [address]- 4537 Feb, [facility] [place] [facility] [address] [id number] [place] [address]- 8450 13 Feb, 2011 [facility] [place] [facility] [address] [id number] [place] [address]- 4674 28 Apr, 2010 [facility] [place] [facility] [address] [id number] [place] [address]64 22 Apr, 2010 [facility] [place] [facility] [address] [id number] [place] [address]- 2987 16 Apr, 2010 [facility] [place] [facility] [address] [id number] [place] [address]- 2152 15 Apr, 2010 [facility] [place] [facility] [address] [id number] [place] 9652 15 Apr, 2010 [facility] [place] [facility] [address] [id number] [place] [address] 2546 Apr, [facility] [place] [facility] [address] [id number] [place] [address]- 0613 Mar, [facility] [place] [facility] [address] [id number] [place] [address] 2547 Mar, [facility] [place] [facility] [address] [id number] [place] [address]- 0209 Mar, [facility] [place] [facility] [address] [id number] [place] [address]- 7415 Feb, [facility] [place] [facility] [address] [id number] [place] [address]- 1717 Feb, [facility] [place] [facility] [address] [id number] [place] [address]- 7545 Feb, [facility] [place] [facility] [address] [id number] [place] [address]- 5924 Feb, [facility] [place] [facility] [address] [id number] [place] [address]- 4759 Dec, [facility] [place] [facility] [address] [id number] [place] [address]- 5726 Dec, [facility] [place] [facility] [address] [id number] [place] [address]- 2096 Oct, [facility] [place] [facility] [address] [id number] [place] [address]- 7942 Mar, [facility] [place] [facility] [address] [id number] [place] [address]- 7895 Mar, [facility] [place] [facility] [address] [id number] [place] [address]- 9256 September, IMMUNIZATIONS No Known Immunizations SOCIAL HISTORY Never Assessed REASON FOR VISIT Lab (walk-in) PLAN OF CARE VITAL SIGNS MEDICATIONS Unknown Medications RESULTS No Results PROCEDURES Procedure Date Ordered Result Body Site URINALYSIS, AUTO, W/O SCOPE Apr 19, 2017 LAB NOT BILLED BY [facility] Apr 19, 2017 INSTRUCTIONS MEDICATIONS ADMINISTERED No Known [...]
--- OUTSIDE RECORDS SUMMARY | 2017-11-27 16:02 | XMS REPORT ---
Author Author VALERIE ZAVALA [facility] Address [address] [place] [address] Care Team Providers Care Airline Reservationist Name Role Phone VALERIE ZAVALA Unavailable PROBLEMS Type Condition ICD9-CM Code OVE93-TH Code Onset Dates Condition Status SNOMED Code Problem Generalized anxiety disorder F41.1 Active 62304318 Problem Hypokalemia E87.6 Active 162486898 Problem Right low back pain, with sciatica presence unspecified M54.5 Active 795674926 Problem Post-traumatic stress disorder, chronic F43.12 Active 47767432 Problem Pain in right knee M25.561 Active 89527531 Problem Gastroesophageal reflux disease without esophagitis K21.9 Active 504777664 Problem UTI symptoms R39.9 Active 25464575 Problem Essential hypertension I10 Active 50092296 Problem Anxiety F41.9 Active 21682603 Problem Neuropathy G62.9 Active 832565030 Problem Other chronic pain G89.29 Active 33724592 Problem Generalized abdominal pain R10.84 Active 388308501 Problem Chronic pain G89.29 Active 01673314 Problem Back pain M54.9 Active 441493309 Problem Right foot pain M79.671 Active 71255582 Problem Panic attacks F41.0 Active 289083900 Problem Other emphysema J43.8 Active 05575371 Problem Kidney stones N20.0 Active 12985482 Problem Renal calculus, right N20.0 Active 60325912 Problem Weight decrease R63.4 Active 004265087 Problem Tobacco abuse Z72.0 Active 30356964 Problem Bone pain M89.8X9 Active 65214812 Problem Depression, unspecified depression type F32.9 Active 82530570 Problem Insomnia, unspecified type G47.00 Active 880630909 Problem Pulmonary emphysema, unspecified emphysema type J43.9 Active 28582164 Problem Right upper quadrant abdominal pain R10.11 Active 303815503 Problem Weight loss R63.4 Active 700631468 ALLERGIES No Information ENCOUNTERS Encounter Location Date Diagnosis [facility] [address] [address] Nov, [facility] [id number] [place] [address] 13566- 7304 Oct, Medicare welcome exam Z00.00 [facility] [id number] [place] [address] 65114- 6110 September, Back pain M54.9 and Right anterior knee pain M25.561 [facility] [id number] [place] [address] 80712- 1935 September, [facility] [id number] [place] [address] 76820- 7092 September, [facility] [id number] [place] [address] 41470- 5916 September, Essential hypertension I10 [facility] [id number] [place] [address] 54395- 6913 September, [facility] [id number] [place] [address] 07578- 2854 September, RLQ abdominal pain R10.31 ; Low back pain M54.5 and Other chronic pain G89.29 [facility] [id number] [place] [address] 01147- 0282 Aug, Medicare welcome exam Z00.00 [facility] [address] [place] [address] 70068- 8530 Aug, [facility] [id number] [place] [address] 98108- 8026 Aug, Acute pyelonephritis N10 and Medicare welcome exam Z00.00 [facility] [address] [address] Aug, Dysuria R30.0 and Acute pyelonephritis N10 [facility] [id number] [address]- 0193 Aug, [facility] [id number] [place] [address] 93041- 8839 Aug, [facility] [id number] [place] [address] 52797- 9669 Aug, [facility] [id number] [place] [address] 87310- 0640 Aug, [facility] [id number] [place] [address] 69754- 1563 Jul, [facility] [id number] [place] [address] 45383- 0979 Jul, Renal calculus, right N20.0 and Medicare welcome exam Z00.00 [facility] [address] [place] [address] 53383 -1926 Jul, Dysuria R30.0 and Renal calculus, right N20.0 [facility] [address] [place] [address] 40297- 3976 Jul, Medicare welcome exam Z00.00 [facility] [id number] [place] [address] 44229- 2480 Jun, Gastroesophageal reflux disease without esophagitis K21.9 and Generalized abdominal pain R10.84 [facility] [address] [place] [address] 26981- 9985 Jun, Medicare welcome exam Z00.00 [facility] [address] [place] [address] 27825- 4419 Jun, [facility] [id number] [place] [address] 62541- 8622 Jun, Medicare welcome exam Z00.00 and Encounter for screening mammogram for malignant neoplasm of breast Z12.31 [facility] [address] [place] [address] 34759- 0462 02 Jun, 2017 Chronic pain G89.29 [place] [id number] [place] [address] 53578- 6732 May, [place] [address] 20235- 4140 May, Pelvic pain R10.2 [place] [address] 73566- 3253 May, Pelvic pain R10.2 [facility] [address] 06408 -6752 May, Renal calculus, right N20.0 [place] [address] 80062- 1592 May, Hematuria, unspecified type R31.9 and Nephrolithiasis N20.0 [facility] [place] [address] 74574 -8522 May, Dysuria R30.0 and Nephrolithiasis N20.0 [place] [id number] [place] [address] 92606- 7107 May, [facility] [place] [id number] [place] [address] 08026 -2369 May, Abdominal pain R10.9 and Kidney stone N20.0 [place] [id number] [place] [address] 91024- 5372 May, [place] [id number] [place] [address] 83117- 3631 May, Chronic pain G89.29 and Panic attacks F41.0 [place] [address] 03239- 7965 May, Urinary tract infection without hematuria, site unspecified N39.0 [place] [id number] [place] [address] 03690- 8752 Apr, Right lower quadrant abdominal pain R10.31 and Abnormal serum lipase level R74.8 [facility] [address] [address]- 8915 Apr, Recurrent urinary tract infection N39.0 [facility] [address] [place] [address] 05471- 4729 Apr, UTI symptoms R39.9 ; Recurrent urinary tract infection N39.0 and Pelvic pain R10.2 [facility] [address] [place] [address] 89461- 8240 Apr, Chronic pain G89.29 and Panic attacks F41.0 [facility] [address] [place] [address] 93477- 8249 Apr, Dysuria R30.0 [facility] [address] [place] [address] 13039- 4517 Apr, [facility] [address] [place] [address] 66320- 5338 Apr, Dysuria R30.0 and Urinary tract infection without hematuria , site unspecified N39.0 [facility] [address] [address]- 6392 Mar, UTI symptoms R39.9 [facility] [address] [place] [address] 63379- 6934 Mar, [facility] [address] [address]- 2065 Mar, Panic attacks F41.0 and Chronic pain G89.29 [facility] [address] [address]- 6795 Mar, [facility] [id number] [place] [address] 22121- 8920 09 Mar, 2017 Dysuria R30.0 [facility] [address] [address]- 0005 08 Mar, 2017 Dysuria R30.0 [facility] [id number] [place] [address] 71518- 1278 Feb, Chronic pain G89.29 ; Shortness of breath R06.02 ; Weight loss R63.4 ; Encounter for immunization Z23 ; Bone pain M89.8X9 ; Right anterior knee pain M25.561 and Cough R05 [place] [id number] [place] [address] 17543- 8747 Feb, Shortness of breath R06.02 [place] [address] 87947- 6749 Feb, [place] [address] 17717- 8427 Feb, Panic attacks F41.0 and Chronic pain G89.29 [place] [address] 85217- 9755 Feb, [place] [address] 83156- 7644 Feb, Panic attacks F41.0 ; Shortness of breath R06.02 and Encounter for immunization Z23 [place] [address] 57488- 1569 Jan, [place] [facility] [id number] [place] [address] 45217- 2897 Jan, Anxiety F41.9 and Chronic pain G89.29 [place] [address] 08896- 2831 Dec, Anxiety F41.9 and Chronic pain G89.29 [place] [address] 34890- 8383 Nov, Chronic pain G89.29 [place] [address] 51133- 1546 Nov, Anxiety F41.9 [place] [facility] [id number] [place] [address] 22805- 1244 Nov, Chronic pain G89.29 ; Essential hypertension I10 and Other emphysema J43.8 [facility] [id number] [place] [address] 36888- 5776 Oct, Anxiety F41.9 [facility] [id number] [place] [address] 94994- 2812 Oct, [facility] [id number] [place] [address] 90681- 5802 Oct, Chronic pain G89.29 [facility] [id number] [place] [address] 99639- 5109 September, Recurrent UTI N39.0 ; Neuropathy G62.9 and Anxiety F41.9 [facility] [id number] [place] [address] 88745- 5892 September, [facility] [id number] [place] [address] 33206- 8188 September, Chronic pain G89.29 [facility] [id number] [place] [address] 27155- 4359 September, [facility] [id number] [place] [address] 05262- 3491 Aug, Post-traumatic stress disorder, chronic F43.12 ; Chronic urinary tract infection N39.0 ; Gastroesophageal reflux disease without esophagitis K21.9 ; Chronic pain G89.29 ; Essential hypertension I10 and Tobacco abuse Z72.0 [facility] [address] [place] [address] 88573 -2668 Aug, [facility] [id number] [place] [address] 84966- 3910 Aug, Chronic pain G89.29 [facility] [id number] [place] [address] 75286- 5570 Aug, Insomnia, unspecified type G47.00 [facility] [id number] [place] [address] 43997- 0680 Aug, [facility] [address] [facility] [id number] [address]- 1687 Jul, Chronic pain G89.29 [facility] [address] [facility] [id number] [address]- 8515 Jul, [facility] [address] [address]- 2150 Jul, [facility] [address] [address]- 4029 Jul, [facility] [address] [address]- 3361 Jul, Recurrent UTI (urinary tract infection) N39.0 [facility] [address] [address]- 2052 Jul, [facility] [address] [place] [address] 21046- 9022 Jun, Chronic pain G89.29 [facility] [address] [address]- 0575 17 Jun, 2016 [facility] [address] [address]- 7156 Jun, [facility] [address] [address]- 1922 May, Chronic pain G89.29 [facility] [address] [address]- 8334 May, Weight loss R63.4 and Shortness of breath R06.02 [facility] [address] [address]- 0165 May, Chronic pain G89.29 ; Weight loss R63.4 and Tobacco abuse Z72.0 [facility] [address] [address]- 6470 May, [facility] [address] [place] [address] 23126- 5341 May, Hypoxia R09.02 [facility] [id number] [place] [address] 19747- 7009 May, [facility] [id number] [place] [address] 82240- 1224 May, Pulmonary emphysema, unspecified emphysema type J43.9 [facility] [id number] [place] [address] 67711 -6723 May, [facility] [id number] [place] [address] 58545- 6304 May, [facility] [id number] [place] [address] 31168- 9003 May, [place] [id number] [place] [address] 36469- 7402 May, Chronic pain G89.29 ; Encounter for immunization Z23 ; Right anterior knee pain M25.561 and Cough R05 [place] [id number] [place] [address] 79826- 0873 Apr, Chronic pain G89.29 [place] [id number] [place] [address] 02959- 5618 Apr, [place] [id number] [place] [address] 50829- 8021 Apr, Generalized anxiety disorder F41.1 and Depression, unspecified depression type F32.9 [facility] [address] [place] [address] 07856- 0613 Apr, Chronic pain G89.29 ; Hypokalemia E87.6 and Insomnia, unspecified type G47.00 [place] [id number] [place] [address] 52897- 5058 Apr, [place] [id number] [place] [address] 31709- 0890 Apr, Chronic pain G89.29 [facility] [address] [id number] [place] [address]- 2078 Apr, [facility] [address] [facility] [id number] [place] [address]- 7885 Mar, [facility] [place] [facility] [address] [facility] [id number] [place] [address]- 1372 Mar, Insomnia, unspecified type G47.00 [facility] [address] [facility] [id number] [place] [address]- 6965 Mar, Chronic pain G89.29 [facility] [place] [facility] [address] [id number] [place] [address]- 0821 Mar, [facility] [place] [facility] [address] [facility] [id number] [place] [address]- 1412 Feb, [facility] [place] [facility] [address] [facility] [id number] [place] [address]- 6575 Feb, [facility] [place] [facility] [address] [facility] [id number] [place] [address]- 0995 Feb, [facility] [place] [facility] [address] [facility] [id number] [place] [address]- 3731 Feb, [facility] [place] [facility] [address] [facility] [id number] [place] [address]- 1422 Feb, [facility] [place] [facility] [address] [facility] [id number] [place] [address]- 1292 29 Jan, 2015 [facility] [place] [facility] [address] [facility] [id number] [place] [address]- 8763 26 Jan, 2015 [facility] [place] [facility] [address] [id number] [place] [address]- 8755 20 Sep, 2015 [facility] [place] [facility] [address] [facility] [id number] [place] [address]- 7770 13 Sep, 2015 [facility] [place] [facility] [address] [facility] [id number] [place] [address]- 3489 12 Jan, 2015 [facility] [place] [facility] [id number] [place] [address] 12704- 9738 07 Jan, 2016 Chronic pain G89.29 [facility] [id number] [place] [address] 79974- 2490 Jan, Chronic pain G89.29 and Fibromyalgia M79.7 [facility] [id number] [place] [address] 46115- 6802 Dec, Depression, unspecified depression type F32.9 and Generalized anxiety disorder 300.02 [facility] [id number] [place] [address] 77077- 9951 Dec, Dysthymia F34.1 ; Insomnia, unspecified type G47.00 and Chronic pain G89.29 [facility] [id number] [place] [address] 01735- 4275 Dec, Chronic pain G89.29 [facility] [id number] [place] [address] 06486- 2155 Dec, Insomnia, unspecified type G47.00 [facility] [id number] [place] [address] 09698- 1102 Dec, Fibromyalgia M79.7 and Chronic pain G89.29 [facility] [id number] [place] [address] 22798- 6115 Dec, [facility] [id number] [place] [address] 83741- 9027 Dec, [facility] [id number] [place] [address] 88098- 4900 Dec, [facility] [id number] [place] [address] 04154- 3077 Dec, [facility] [id number] [place] [address] 51684- 4160 Dec, Chronic pain G89.29 [facility] [id number] [place] [address] 32205- 3734 Dec, [place] [address] [address]- 9798 Dec, [facility] [id number] [place] [address] 06494- 0743 Dec, [facility] [id number] [place] [address] 30919- 0322 Dec, Chronic pain G89.29 and Dysthymia F34.1 [facility] [id number] [place] [address] 35456- 0311 Nov, [facility] [id number] [place] [address] 08553- 4119 Nov, Hypokalemia E87.6 and Chronic pain G89.29 [place] [id number] [place] [address] 56557- 0431 Nov, Back pain M54.9 and Pain in right knee M25.561 [facility] [id number] [place] [address] 35320- 9017 Nov, [facility] [id number] [place] [address] 00930- 1712 Nov, Chronic pain G89.29 [facility] [id number] [place] [address] 44027- 6684 Nov, Chronic pain G89.29 ; Weight loss R63.4 ; Bone pain M89.8X9 and Insomnia, unspecified type G47.00 [facility] [address] [place] [address] 62096- 5643 Nov, Chronic pain G89.29 [facility] [id number] [place] [address] 17429- 5110 Nov, Chronic pain G89.29 [facility] [id number] [place] [address] 34860- 9381 Oct, Chronic pain G89.29 [facility] [id number] [place] [address] 52524- 8052 Oct, UTI symptoms R39.9 [facility] [address] [place] [address] 68573- 1812 Oct, Chronic pain G89.29 [facility] [id number] [place] [address] 37600- 2543 Oct, Chronic pain G89.29 [facility] [id number] [place] [address] 09235- 2994 Oct, Chronic pain G89.29 [facility] [id number] [place] [address] 49954- 8056 Oct, Right upper quadrant abdominal pain R10.11 [facility] [id number] [place] [address] 40787- 9384 Oct, Chronic pain G89.29 [facility] [id number] [place] [address] 44075- 0448 Oct, [facility] [id number] [place] [address] 24143- 6812 September, Chronic pain G89.29 [facility] [id number] [place] [address] 71620- 5203 September, Dysuria R30.0 and Urinary tract infection without hematuria , site unspecified N39.0 [facility] [id number] [place] [address] 66317- 4139 September, [facility] [address] [place] [address] 98115- 2540 September, Dysuria R30.0 [facility] [id number] [place] [address] 27464- 4436 September, Chronic pain G89.29 [facility] [address] [place] [address] 11636- 1112 September, Chronic pain G89.29 and Essential hypertension I10 [facility] [id number] [address]- 3898 September, [facility] [id number] [place] [address] 74777- 1141 September, [facility] [id number] [place] [address] 09731- 3394 September, [facility] [id number] [place] [address] 03787- 8783 Aug, UTI symptoms R39.9 [facility] [id number] [place] [address] 10538- 8640 Aug, Dysuria R30.0 [facility] [id number] [place] [address] 57667- 2509 Aug, [facility] [id number] [place] [address] 48579- 9465 Aug, [facility] [id number] [place] [address] 56132- 1626 Aug, [facility] [id number] [place] [address] 91932- 9200 Aug, Chronic pain G89.29 [facility] [id number] [place] [address] 47379- 5778 Aug, Dysthymia F34.1 [facility] [id number] [place] [address] 91484- 6706 Aug, Conjunctivitis, unspecified conjunctivitis type, unspecified laterality H10.9 [facility] [id number] [place] [address] 78879- 4036 Jul, Chronic pain G89.29 ; Back pain M54.9 ; Tobacco abuse Z72.0 and Weight decrease R63.4 [facility] [id number] [place] [address] 32847- 0358 Jul, [facility] [id number] [place] [address] 56499- 3916 Jul, [facility] [address] [facility] [id number] [address] 24 Jul, 2015 Chronic pain G89.29 [facility] [address] [facility] [id number] [place] [address]- 8363 22 Jul, 2015 [facility] [id number] [place] [address] 48[address] 21 Jul, 2015 [facility] [id number] [address] 18 Jul, 2015 [facility] [id number] [place] [address] 4864 17 Jul, 2015 [facility] [id number] [place] [address], [place] [address]- [address]40 17 Jul, 2015 Chronic pain G89.29 [facility] [id number] [place] [address]- 6185 16 Jul, 2015 Chronic pain G89.29 [facility] [id number] [place] [address]- 6692 15 Jul, 2015 [facility] [id number] [address] 10 Jul, 2015 [facility] [address] [address] 07 Jul, 2015 [facility] [address] [address] Jul, [facility] [address] [address] 3[address] Jun, [facility] [address] [address] 1706 29 Jun, 2015 Depression, unspecified depression type F32.9 [facility] [address] [address] 1270 26 Jun, 2015 Pain in right knee M25.561 [facility] [id number] [place] [address] 06779- 4295 Jun, Chronic pain G89.29 ; Back pain M54.9 ; Bone pain M89.8X9 and Weight loss R63.4 [facility] [id number] [place] [address] 89671- 6773 Jun, [address] [address] [address]- [address] May, [place] [facility] [address] [address]- 6875 May, UTI symptoms R39.9 ; Pain in right knee M25.561 ; Right low back pain, with sciatica presence unspecified M54.5 ; Right foot pain M79.671 ; Hypokalemia E87.6 and Screening, lipid Z13.220 [facility] [id number] [place] [address]23- 4412 May, [facility] [address] [address]- 4223 May, [facility] [address] [address]366- 3610 Mar, [facility] [id number] [place] [address] 38730- 5921 Mar, [facility] [id number] [place] [address] 93378- 3863 Mar, Hypokalemia E87.6 [facility] [id number] [place] [address] 57608- 3601 16 Mar, 2015 Pain in right leg M79.604 ; Encounter for immunization Z23 ; Pain in right knee M25.561 and Hypokalemia E87.6 [facility] [id number] [place] [address] 30171- 3593 Jan, [facility] [address] [address]489- 1715 Jan, [facility] [id number] [address] 18[address] Jan, Abdominal pain, generalized 789.07 [facility] [address] [address]- 0716 Jan, Abdominal pain, generalized 789.07 [facility] [address] [address]- 6[address] Dec, [facility] [address] [address]- 8806 Dec, [facility] [id number] [place] [address] 74762- 8429 Dec, [facility] [address] [address]- 2724 Nov, Hallux valgus 735.0 and Hammertoe 735.4 [facility] [address] [address]- 4471 Nov, [facility] [address] [address]- 0721 Nov, Hallux valgus 735.0 and Hammer toe 735.4 [facility] [id number] [address]- 9916 Oct, [facility] [address] [address]- 3986 Oct, [facility] [id number] [address] 9396 Oct, Pre-op evaluation V72.84 [facility] [address] [address]- 9346 Oct, [facility] [address] [address]- 2546 Oct, [facility] [address] [id number] [address]- 8896 September, [facility] [id number] [address]- 1019 September, [facility] [address] [id number] [place] [address]- 3508 September, Hallux valgus (acquired) 735.0 and Other hammer toe ( acquired) 735.4 [facility] [address] [facility] [id number] [place] [address], [place] [address]- 3400 Aug, [facility] [address] [facility] [id number] [place] [address]- 2463 Aug, [facility] [id number] [place] [address], [place] [address]- 0016 Jul, [facility] [id number] [address]- 6050 Jul, [facility] [address] [id number] [place] [address]- 4956 Jul, [facility] [id number] [place] [address]- 9834 Jul, [facility] [address] [address]- 9480 Jul, [facility] [address]005[address] [address]- 4544 Jul, [facility] [address] [address]- 6992 Jul, [facility] [place] [facility] [address] [id number] [address]- 4115 Jul, [facility] [place] [facility] [address]005[address] [address]- 8827 Jun, [facility] [place] [facility] [address] [facility] [id number] [address]- 4426 Jun, [facility] [place] [facility] [address]00565[address] [address]- 7440 Jun, [facility] [place] [facility] [address] [id number] [place] [address]- 2675 Jun, [facility] [place] [facility] [address] [id number] [place] [address]- 6700 Jun, [facility] [place] [facility] [address] [id number] [place] [address]- 6493 Jun, 2014 [facility] [place] [facility] [address] [id number] [place] [address]- 4182 Jun, 2014 [facility] [place] [facility] [address] [id number] [place] [address]- 4986 Jun, [facility] [place] [facility] [address] [id number] [place] [address]- 8658 Jun, [facility] [place] [facility] [address] [id number] [place] [address]- 8173 Jun, [facility] [place] [facility] [address] [id number] [place] [address]- 4939 May, [facility] [place] [facility] [address] [id number] [place] [address]- 0235 May, [facility] [place] [facility] [address] [facility] [id number] [place] [address]- 8471 May, [facility] [place] [facility] [address] [id number] [place] [address]- 4133 May, [facility] [place] [facility] [address] [id number] [address]- 0312 May, [facility] [place] [facility] [address] [id number] [place] [address]- 0736 May, [facility] [place] [facility] [address] [id number] [place] [address]- 6531 May, [facility] [place] [facility] [address] [id number] [address]- 7043 May, [facility] [place] [facility] [address] [id number] [place] [address]- 8707 May, [facility] [place] [facility] [address] [id number] [place] [address]- 8155 May, [facility] [place] [facility] [address] [id number] [place] [address]- 3025 May, [facility] [place] [facility] [address] [id number] [place] [address]- 2183 May, [facility] [place] [facility] [address] [id number] [place] [address]- 9391 May, [facility] [place] [facility] [address] [id number] [place] [address]- 3553 May, [facility] [place] [facility] [address] [id number] [place] [address]- 3027 May, [facility] [place] [facility] [address] [id number] [place] [address]- 0068 May, [facility] [place] [facility] [address] [id number] [place] [address]- 6259 May, [facility] [place] [facility] [address] [id number] [place] [address]- 9449 May, [facility] [place] [facility] [address] [id number] [place] [address]- 4566 Apr, [facility] [place] [facility] [address] [id number] [place] [address]- 6841 Apr, [facility] [place] [facility] [address] [id number] [place] [address]- 9735 Apr, [facility] [place] [facility] [address] [id number] [place] [address]- 1421 Apr, [facility] [place] [facility] [address] [id number] [place] [address]- 7215 Apr, [facility] [place] [facility] [address] [id number] [address]- 8686 Apr, [facility] [place] [facility] [address] [id number] [place] 6137 Apr, [facility] [place] [facility] [address] [id number] [place] [address]- 9893 Apr, [facility] [place] [facility] [address] [id number] [place] [address]- 7785 Apr, [facility] [place] [facility] [address] [id number] [place] [address]- 6285 Mar, [facility] [place] [facility] [address] [id number] [place] [address]- 6585 Mar, [facility] [place] [facility] [address] [id number] [place] [address]- 2860 Mar, [facility] [place] [facility] [address] [id number] [place] [address]- 2698 Mar, [facility] [place] [facility] [address] [id number] [place] [address]- 7906 Mar, [facility] [place] [facility] [address] [id number] [place] [address]- 1247 Feb, [facility] [place] [facility] [address] [id number] [place] [address]- 4649 Feb, [facility] [place] [facility] [address] [id number] [address]- 5139 Feb, [facility] [place] [facility] [address] [id number] [place] [address]- 5803 Feb, [facility] [place] [facility] [address] [id number] [place] 7410 Feb, [facility] [place] [facility] [address] [id number] [place] 0170 Feb, [facility] [place] [facility] [address] [id number] 4795 Feb, [facility] [place] [facility] [address] [id number] [place] [address]- 6319 09 Feb, 2013 [facility] [place] [facility] [address] [id number] [place] [address]- 4514 Feb, 2013 [facility] [place] [facility] [address] [id number] [place] [address]- 3925 Feb, 2013 [facility] [place] [facility] [address] [id number] [place] [address]- 9798 Feb, 2013 [facility] [place] [facility] [address] [id number] [place] [address]- 6540 Feb, 2013 [facility] [place] [facility] [address] [id number] [place] [address]- 7211 Feb, 2013 [facility] [place] [facility] [address] [id number] [place] [address]- 6306 Feb, 2013 [facility] [place] [facility] [address] [id number] [place] [address]- 7490 Feb, 2013 [facility] [place] [facility] [address] [id number] [place] [address]- 2733 Feb, 2013 [facility] [place] [facility] [address] [id number] [place] [address]- 0641 23 Jan, 2013 [facility] [place] [facility] [address] [id number] [place] [address]- 4928 23 Sep, 2013 [facility] [place] [facility] [address] [id number] [place] [address]- 3811 20 Sep, 2013 [facility] [place] [facility] [address] [id number] [place] [address]- 7351 19 Sep, 2013 [facility] [place] [facility] [address] [id number] [place] [address]- 1222 11 Sep, 2013 [facility] [place] [facility] [address] [id number] [place] [address]- 8639 11 Sep, 2013 [facility] [place] [facility] [address] [id number] [place] [address]- 3491 Jan, [facility] [place] [facility] [address] [id number] [place] [address]- 4330 Jan, [facility] [place] [facility] [address] [id number] [place] [address]- 5026 Dec, [facility] [place] [facility] [address] [id number] [place] [address]- 0577 Dec, [facility] [place] [facility] [address] [id number] [place] [address]- 7046 Nov, [facility] [place] [facility] [address] [id number] [place] [address]- 7855 Nov, [facility] [place] [facility] [address] [id number] [place] [address]- 9260 Nov, [facility] [place] [facility] [address] [id number] [place] [address]- 3823 Nov, [facility] [place] [facility] [address] [id number] [place] [address]- 8686 Nov, [facility] [place] [facility] [address] [id number] [place] [address]- 4347 Nov, [facility] [place] [facility] [address] [id number] [place] [address]- 9375 Nov, [facility] [place] [facility] [address] [id number] [place] [address]- 8085 Nov, [facility] [place] [facility] [address] [id number] [place] [address]- 4491 Nov, [facility] [place] [facility] [address] [id number] [place] [address]- 1543 Oct, [facility] [place] [facility] [address] [id number] [place] [address]- 5316 Oct, [facility] [place] [facility] [address] [id number] [place] [address]- 4342 Oct, [facility] [place] [facility] [address] [id number] [place] [address]- 0004 Oct, [facility] [address] [id number] [place] [address]- 6032 Oct, [facility] [place] [facility] [address] [id number] [place] [address]- 2576 Oct, [facility] [place] [facility] [address] [id number] [place] [address]- 5913 September, [facility] [place] [facility] [address] [id number] [place] [address]- 9526 September, [facility] [place] [facility] [address] [id number] [place] [address]- 4428 September, [facility] [place] [facility] [address] [id number] [place] [address]- 5947 September, [facility] [place] [facility] [address] [id number] [place] [address]- 2749 September, [facility] [place] [facility] [address] [id number] [place] [address]- 0028 September, [facility] [place] [facility] [address] [id number] [place] [address]- 1876 September, [facility] [place] [facility] [address] [id number] [place] [address]- 8418 September, [facility] [place] [facility] [address] [id number] [place] [address]- 7101 September, [facility] [place] [facility] [address] [id number] [place] [address]- 0262 September, [facility] [place] [facility] [address] [id number] [place] [address]- 8440 September, [facility] [place] [facility] [address] [id number] [place] [address]- 8898 September, [facility] [place] [facility] [address] [id number] [place] [address]- 1501 September, [facility] [place] [facility] [address] [id number] [place] [address]- 0400 September, [facility] [place] [facility] [address] [id number] [place] [address]- 4520 September, [facility] [place] [facility] [address] [id number] [place] 5366 September, [facility] [place] [facility] [address] [id number] [place] [address]- 3242 September, [facility] [place] [facility] [address] [id number] [place] [address]- 0930 September, [facility] [place] [facility] [address] [id number] [place] [address]- 5666 September, [facility] [place] [facility] [address] [id number] [place] [address]- 5649 September, [facility] [place] [facility] [address] [id number] [place] [address]- 9138 Aug, [facility] [place] [facility] [address] [id number] [place] [address]- 5802 Aug, [facility] [place] [facility] [address] [id number] [place] [address]- 0391 Aug, [facility] [place] [facility] [address] [id number] [place] [address]- 8348 Aug, [facility] [place] [facility] [address] [id number] [place] [address]- 5165 Aug, [facility] [place] [facility] [address] [id number] [place] [address]- 8987 18 Aug, 2013 [facility] [place] [facility] [address] [id number] [place] [address]- 8829 16 Aug, 2013 [facility] [place] [facility] [address] [id number] [place] [address]- 6405 16 Aug, 2013 [facility] [place] [facility] [address] [id number] [place] [address]- 6704 15 Aug, 2013 [facility] [place] [facility] [address] [id number] [place] [address]- 1268 15 Aug, 2013 [facility] [place] [facility] [address] [id number] [place] [address]- 0955 14 Aug, 2013 [facility] [place] [facility] [address] [id number] [place] [address]- 7447 Aug, [facility] [place] [facility] [address] [id number] [place] [address]- 2375 Aug, [facility] [place] [facility] [address] [id number] [place] [address]- 5141 Aug, [facility] [place] [facility] [address] [id number] [place] [address]- 5588 Aug, [facility] [place] [facility] [address] [id number] [place] [address]- 5878 Jul, [facility] [place] [facility] [address] [id number] [place] [address]- 2622 31 Jul, 2013 [facility] [place] [facility] [address] [id number] [place] [address]- 7315 27 Jul, 2013 [facility] [place] [facility] [address] [id number] [place] [address]- 6936 27 Jul, 2013 [facility] [place] [facility] [address] [id number] [place] [address]- 6275 Jul, [facility] [place] [facility] [address] [id number] [place] [address]- 5889 20 Jul, 2013 [facility] [place] [facility] [address] [id number] [place] [address]- 1946 18 Jul, 2013 [facility] [place] [facility] [address] [id number] [place] [address]- 3386 18 Jul, 2013 [facility] [place] [facility] [address] [id number] [place] [address]- 9359 06 Jul, 2013 [facility] [place] [facility] [address] [id number] [place] [address]- 7504 06 Jul, 2013 [facility] [place] [facility] [address] [id number] [place] [address]- 9092 Jul, [facility] [place] [facility] [address] [id number] [place] [address]- 2964 Jul, [facility] [place] [facility] [address] [id number] [place] [address]- 5669 Jul, [facility] [place] [facility] [address] [id number] [place] [address]- 5888 Jul, [facility] [place] [facility] [address] [id number] [place] [address]- 9141 Jul, [facility] [place] [facility] [address] [id number] [place] [address]- 8344 Jun, [facility] [place] [facility] [address] [id number] [place] [address]- 8747 Jun, [facility] [place] [facility] [address] [id number] [place] [address]- 3875 Jun, [facility] [place] [facility] [address] [id number] [place] [address]- 2408 Jun, [facility] [place] [facility] [address] [id number] [place] [address]- 2422 Jun, [facility] [place] [facility] [address] [id number] [place] [address]- 0854 Jun, [facility] [place] [facility] [address] [id number] [place] [address]- 8100 May, [facility] [place] [facility] [address] [id number] [place] [address]- 3176 May, [facility] [place] [facility] [address] [id number] [place] [address]- 9660 May, [facility] [place] [facility] [address] [id number] [place] 9423 May, [facility] [address] [id number] [place] [address]- 7182 May, [facility] [place] [facility] [address] [id number] [place] [address]- 9772 May, [facility] [place] [facility] [address] [id number] [place] [address]- 7499 May, [facility] [place] [facility] [address] [id number] [place] [address]- 9478 May, [facility] [place] [facility] [address] [id number] [place] [address]- 1599 May, [facility] [place] [facility] [address] [id number] [place] [address]- 0861 May, [facility] [place] [facility] [address] [id number] [place] [address]- 6646 May, [facility] [place] [facility] [address] [id number] [place] [address]- 6379 May, [facility] [place] [facility] [address] [id number] [place] [address]- 2571 May, [facility] [place] [facility] [address] [id number] [place] [address]- 1367 May, [facility] [place] [facility] [address] [id number] [place] [address] May, [facility] [place] [facility] [address] [id number] [place] [address] Apr, [facility] [place] [facility] [address] [id number] [place] [address] Apr, [facility] [place] [facility] [address] [id number] [place] [address] Apr, [facility] [place] [facility] [address] [id number] [place] [address] Apr, [facility] [place] [facility] [address] [id number] [place] [address] Apr, [facility] [address] [id number] [place] [address] Apr, [facility] [address] [id number] [place] [address] Apr, [facility] [address] [id number] [place] [address] Apr, [facility] [address] [id number] [place] [address] 8316 Apr, [facility] [address] [id number] [place] [address] 94[address] Apr, [facility] [address] [id number] [place] [address] Mar, [facility] [address] [id number] [place] [address] Mar, [facility] [address] [id number] [place] [address] 1182 Mar, [facility] [address] [id number] [place] [address] 2844 Mar, [facility] [address] [id number] [place] [address]- [address]476 Mar, [facility] [address] [id number] [place] [address] Mar, [facility] [place] [facility] [address] [id number] [place] [address]- [address] Mar, [facility] [place] [facility] [address] [id number] [place] [address]- [address] Mar, [facility] [place] [facility] [address] [id number] [place] [address]- 89[address] Mar, [facility] [place] [facility] [address] [id number] [place] [address] Mar, [facility] [place] [facility] [address] [id number] [place] [address]- [address] 20 Mar, 2013 [facility] [place] [facility] [address] [id number] [place] [address]- 2561 20 Mar, 2013 [facility] [place] [facility] [address] [id number] [place] [address]- 7794 19 Mar, 2013 [facility] [place] [facility] [address] [id number] [place] [address]- [address]291 19 Mar, 2013 [facility] [place] [facility] [address] [id number] [place] [address]- [address]297 18 Mar, 2013 [facility] [place] [facility] [address] [id number] [place] [address]- 5344 18 Mar, 2013 [facility] [place] [facility] [address] [id number] [place] [address]- 1340 14 Mar, 2013 [facility] [place] [facility] [address] [id number] [place] [address]- [address] 14 Mar, 2013 [facility] [place] [facility] [address] [id number] [place] [address]- 09[address] Mar, [facility] [place] [facility] [address] [id number] [place] [address]- 1703 Mar, [facility] [place] [facility] [address] [id number] [place] [address] 3930 Mar, [facility] [place] [facility] [address] [id number] [place] [address]- 2918 Mar, [facility] [place] [facility] [address] [id number] [place] [address]- 2474 Mar, [facility] [place] [facility] [address] [id number] [place] [address]- 5199 Feb, [facility] [place] [facility] [address] [id number] [place] [address]- 4612 18 Feb, 2013 [facility] [place] [facility] [address] [id number] [place] [address]- [address] 16 Feb, 2013 [facility] [place] [facility] [address] [id number] [place] [address]- 6363 16 Feb, 2013 [facility] [place] [facility] [address] [id number] [place] [address]- 9046 15 Feb, 2013 [facility] [place] [facility] [address] [id number] [place] [address]- [address]236 Feb, [facility] [place] [facility] [address] [id number] [place] [address]- 2188 Feb, [facility] [place] [facility] [address] [id number] [place] [address]- 1071 Feb, [facility] [place] [facility] [address] [id number] [place] [address]- 3165 04 Feb, 2013 [facility] [place] [facility] [address] [id number] [place] [address]- 8379 Feb, [facility] [place] [facility] [address] [id number] [place] [address]- [address]83 30 Jan, 2013 [facility] [place] [facility] [address] [id number] [place] [address]- 0971 26 Jan, 2013 [facility] [place] [facility] [address] [id number] [place] [address]- 0663 24 Jan, 2013 [facility] [place] [facility] [address] [id number] [place] [address]- [address] 23 Jan, 2012 [facility] [place] [facility] [address] [id number] [place] [address]- 120[address] 17 Jan, 2013 [facility] [place] [facility] [address] [id number] [place] [address]- 1168 28 Dec, 2012 [facility] [place] [facility] [address] [id number] [place] [address]- 3500 Dec, [facility] [place] [facility] [address] [id number] [place] [address]- 5647 Dec, [facility] [place] [facility] [address] [id number] [place] [address]- 9998 Dec, [facility] [address] [id number] [place] [address]- 2834 Dec, [facility] [address] [id number] [place] [address]- 5785 Dec, [facility] [address] [id number] [place] [address] 67[address] Dec, [facility] [address] [id number] [place] [address] 6[address] Nov, [facility] [address] [id number] [place] [address]- 4691 Nov, [facility] [address] [id number] [place] [address]- 3433 Nov, [facility] [address] [id number] [place] [address]- 4394 Nov, [facility] [address] [id number] [place] [address]- 2460 Nov, [facility] [address] [id number] [place] [address]- 2284 Oct, [facility] [address] [id number] [place] [address]- 9379 Oct, [facility] [address] [id number] [place] [address]- 5168 Oct, [facility] [address] [id number] [place] [address]- 5100 September, [facility] [place] [facility] [address] [id number] [place] [address]- 0190 September, [facility] [place] [facility] [address] [id number] [place] [address]- [address] September, [facility] [facility] [address] [id number] [place] [address] September, [facility] [address] [id number] [place] [address] September, [facility] [address] [id number] [place] [address] September, [facility] [address] [id number] [place] [address] September, [facility] [address] [id number] [place] [address] Aug, [facility] [address] [id number] [place] [address] Aug, [facility] [address] [id number] [place] [address] Aug, [facility] [address] [id number] [place] [address] 29 Jul, 2012 [facility] [address] [id number] [place] [address] Jul, [facility] [address] [id number] [place] [address] Jul, [facility] [address] [id number] [place] [address] 57[address] Jul, [facility] [address] [id number] [place] [address]- 77[address] 18 Jul, 2012 [facility] [address] [id number] [place] [address]- 5937 18 Jul, 2012 [facility] [address] [id number] [place] [address]- 3[address] 13 Jul, 2012 [facility] [place] [facility] [address] [id number] [place] [address]- [address] 28 Jun, 2012 [facility] [address] [id number] [place] [address]- [address] 27 Jun, 2012 [facility] [address] [id number] [place] [address] Jun, [facility] [address] [id number] [place] [address] 2546 Jun, [facility] [address] [id number] [place] [address] 2546 Jun, [facility] [address] [id number] [place] [address] 2546 Jun, [facility] [place] [facility] [address] [id number] [place] [address] 2546 Jun, [facility] [address] [id number] [place] [address]- [address] Jun, [facility] [address] [id number] [place] [address] 2546 Jun, [facility] [address] [id number] [place] [address] Jun, [facility] [address] [id number] [place] [address]- 8946 May, [facility] [address] [id number] [place] [address]- 2027 May, [facility] [address] [facility] [id number] [place] [address]- [address] May, [facility] [address] [id number] [place] [address] 2546 May, [facility] [address] [id number] [place] [address] 2544 May, [facility] [place] [facility] [address] [id number] [place] [address]- 0915 May, [facility] [place] [facility] [address] [id number] [place] [address] 2546 Apr, [facility] [address] [id number] [place] [address]- 9185 Apr, [facility] [place] [facility] [address] [id number] [place] [address]- 4066 Apr, [facility] [place] [facility] [address] [id number] [place] [address]- 5245 Apr, [facility] [place] [facility] [address] [id number] [place] [address]- 3978 Apr, [facility] [place] [facility] [address] [id number] [place] [address]- 0962 Apr, [facility] [place] [facility] [address] [id number] [place] [address]- 2414 Apr, [facility] [place] [facility] [address] [id number] [place] [address] 3939 Mar, [facility] [place] [facility] [address] [id number] [place] [address]- 3723 Mar, [facility] [place] [facility] [address] [id number] [place] [address]- 8151 27 Mar, 2012 [facility] [place] [facility] [address] [id number] [place] [address]- 3838 Mar, [facility] [place] [facility] [address] [facility] [id number] [place] [address]- 0600 Mar, [facility] [place] [facility] [address] [facility] [id number] [place] [address] 6660 18 Mar, 2012 [facility] [place] [facility] [address] [id number] [place] [address]- 0816 18 Mar, 2012 [facility] [place] [facility] [address] [id number] [place] [address]- 3896 16 Mar, 2012 [facility] [place] [facility] [address] [id number] [place] [address]- 4354 16 Mar, 2012 [facility] [place] [facility] [address] [facility] [id number] [place] [address]- 8803 16 Mar, 2012 [facility] [place] [facility] [address] [id number] [place] [address]- 6151 Mar, [facility] [place] [facility] [address] [id number] [place] [address]- 3908 Mar, [facility] [place] [facility] [address] [id number] [place] [address] Mar, [facility] [place] [facility] [address] [facility] [id number] [place] [address]- [address] Mar, [facility] [place] [facility] [address] [id number] [place] [address]- 7369 Mar, [facility] [place] [facility] [address] [id number] [place] [address]- 2234 Mar, [facility] [place] [facility] [address] [facility] [id number] [place] [address]- 4246 Mar, [facility] [place] [facility] [address] [facility] [id number] [place] [address]- 9703 Feb, [facility] [place] [facility] [address] [facility] [id number] [place] [address]- 5564 Feb, [facility] [place] [facility] [address] [facility] [id number] [place] [address]- 6658 Feb, [facility] [place] [facility] [address] [facility] [id number] [place] [address]- 0653 Feb, [facility] [place] [facility] [address] [facility] [id number] [place] [address]- 1549 Feb, [facility] [place] [facility] [address] [facility] [id number] [place] [address]- 7519 Feb, [facility] [place] [facility] [address] [facility] [id number] [place] [address]- 6014 Feb, [facility] [place] [facility] [address] [facility] [id number] [place] [address]- 3673 Feb, [facility] [place] [facility] [address] [facility] [id number] [place] [address]- 8953 Feb, [facility] [place] [facility] [address] [id number] [place] [address]- 1568 04 Feb, 2012 [facility] [place] [facility] [address] [id number] [place] [address]- 4884 Feb, [facility] [place] [facility] [address] [id number] [place] [address] 2546 27 Jan, 2011 [facility] [place] [facility] [address] [id number] [place] [address] 2546 25 Jan, 2011 [facility] [place] [facility] [address] [id number] [place] [address]- 9870 13 Jan, 2012 [facility] [place] [facility] [address] [id number] [place] [address]- 3346 12 Jan, 2012 [facility] [place] [facility] [address] [id number] [place] [address]- 4591 07 Jan, 2012 [facility] [place] [facility] [address] [id number] [place] [address]- 6656 31 Dec, 2011 [facility] [place] [facility] [address] [id number] [place] [address]- 5605 24 Dec, 2011 [facility] [place] [facility] [address] [id number] [place] [address]- 2007 Dec, [facility] [place] [facility] [address] [id number] [place] [address]- 3152 Dec, [facility] [place] [facility] [address] [id number] [place] [address]- 0623 16 Dec, 2011 [facility] [place] [facility] [address] [id number] [place] [address]- 2547 Dec, [facility] [place] [facility] [address] [id number] [place] [address]- 3966 Dec, [facility] [place] [facility] [address] [id number] [place] [address] 2546 Dec, [facility] [place] [facility] [address] [id number] [place] [address]- 7374 Nov, [facility] [place] [facility] [address] [id number] [place] [address]- 7308 Nov, [facility] [place] [facility] [address] [id number] [place] [address]- 8797 Nov, [facility] [place] [facility] [address] [id number] [place] [address]- 5460 Nov, [facility] [place] [facility] [address] [id number] [place] [address]- 6778 Nov, [facility] [place] [facility] [address] [id number] [place] [address]- 0590 Oct, [facility] [place] [facility] [address] [id number] [place] [address]- 2656 Oct, [facility] [place] [facility] [address] [id number] [place] [address]- 7019 September, [facility] [place] [facility] [address] [id number] [place] [address]- 4767 September, [facility] [place] [facility] [address] [id number] [place] [address]- 5582 September, [facility] [place] [facility] [address] [id number] [place] [address]- 3542 September, [facility] [place] [facility] [address] [id number] [place] [address]- 7957 September, [facility] [place] [facility] [address] [id number] [place] [address]- 9071 September, [facility] [place] [facility] [address] [id number] [place] [address]- 5463 September, [facility] [place] [facility] [address] [id number] [place] [address]- 9571 September, [facility] [place] [facility] [address] [id number] [place] [address]- 7413 September, [facility] [place] [facility] [address] [id number] [place] [address]- 0716 September, [facility] [address] [id number] [place] [address]- 8579 September, [facility] [address] [facility] [id number] [place] [address]- 7580 September, [facility] [address] [facility] [id number] [place] [address]- 4186 September, [facility] [address] [id number] [place] [address]- 6622 September, [facility] [address] [id number] [place] [address]- 0981 24 Aug, 2011 [facility] [address] [facility] [id number] [place] [address]- 9889 Aug, [facility] [address] [id number] [place] [address]- 6818 13 Aug, 2011 [facility] [address] [facility] [id number] [place] [address]- 8512 Aug, [facility] [id number] [place] [address]- 9206 23 Jul, 2011 [facility] [address] [id number] [place] [address]- 9459 13 Jul, 2011 [facility] [address] [id number] [place] [address]- 8437 13 Jul, 2011 [facility] [address] [id number] [address]- 8667 28 Jun, [address] [facility] [address] [id number] [id number] 26 Jun, 2011 [facility] [address] [id number] [place] [address]- 2616 13 Jun, 2011 [facility] [place] [facility] [address] [id number] [address]- 6826 10 Jun, 2011 [facility] [place] [facility] [address] [id number] [place] [address]- 1537 07 Jun, 2011 [facility] [address] [id number] [place] [address]- 2756 Jun, [facility] [place] [facility] [address] [id number] [place] [address] Jun, [facility] [place] [facility] [address] [id number] [place] [address]- 4886 Jun, [facility] [address] [id number] [place] [address]- 7537 May, [facility] [address] [id number] [place] [address]- 9349 May, [facility] [address] [id number] [place] [address]- 7231 May, [facility] [address] [id number] [place] [address]- 8830 May, [facility] [address] [id number] [place] [address]- 0285 May, [facility] [address] [id number] [place] [address]- 0231 May, [facility] [place] [facility] [address] [id number] [place] [address]- 4355 May, [facility] [place] [facility] [address] [id number] [place] [address]- 5199 May, [facility] [place] [facility] [address] [id number] [place] [address]- 5753 May, [facility] [place] [facility] [address] [id number] [place] [address]- 0177 May, [facility] [place] [facility] [address] [id number] [place] [address]- 3708 17 May, 2011 [facility] [place] [facility] [address] [id number] [place] [address]- 2495 13 May, 2011 [facility] [place] [facility] [address] [id number] [place] [address]- 8635 May, [facility] [place] [facility] [address] [id number] [place] [address]- 0499 May, [facility] [place] [facility] [address] [id number] [place] [address]- 6919 30 Apr, 2011 [facility] [place] [facility] [address] [id number] [place] [address]- 7527 16 Apr, 2011 [facility] [place] [facility] [address] [id number] [place] [address]- 5729 Apr, [facility] [place] [facility] [address] [id number] [place] [address]- 0204 Mar, [facility] [place] [facility] [address] [id number] [place] [address]- 4066 Mar, [facility] [place] [facility] [address] [id number] [place] [address]- 8795 31 Feb, 2011 [facility] [place] [facility] [address] [id number] [place] [address]- 2824 Feb, [facility] [place] [facility] [address] [id number] [place] [address]- 8733 Feb, [facility] [place] [facility] [address] [id number] [place] [address]- 4171 Feb, [facility] [place] [facility] [address] [id number] [place] [address]- 7220 13 Feb, 2011 [facility] [place] [facility] [address] [id number] [place] [address]- 6130 28 Apr, 2010 [facility] [place] [facility] [address] [id number] [place]36 22 Apr, 2010 [facility] [place] [facility] [address] [id number] [place] [address]- 8065 16 Apr, 2010 [facility] [place] [facility] [address] [id number] [place] [address]- 5318 15 Apr, 2010 [facility] [place] [facility] [address] [id number] [place] [address]169 15 Apr, 2010 [facility] [place] [facility] [address] [id number] [place] [address] 2546 Apr, [facility] [place] [facility] [address] [id number] [place] [address]- 9843 Mar, [facility] [place] [facility] [address] [id number] [place] [address] 2547 Mar, [facility] [place] [facility] [address] [id number] [place] [address]- 9424 Mar, [facility] [place] [facility] [address] [id number] [place] [address]- 8646 Feb, [facility] [place] [facility] [address] [id number] [place] [address]- 0689 Feb, [facility] [place] [facility] [address] [id number] [place] [address]- 1990 Feb, [facility] [place] [facility] [address] [id number] [place] [address]- 2571 Feb, [facility] [place] [facility] [address] [id number] [place] [address]- 3406 Dec, [facility] [place] [facility] [address] [id number] [place] [address]- 4498 Dec, [facility] [place] [facility] [address] [id number] [place] [address]- 9856 Oct, [facility] [place] [facility] [address] [id number] [place] [address]- 9458 Mar, [facility] [place] [facility] [address] [id number] [place] [address]- 7415 Mar, [facility] [place] [facility] [address] [id number] [place] [address]- 4821 September, IMMUNIZATIONS No Known Immunizations SOCIAL HISTORY Never Assessed REASON FOR VISIT Medication question PLAN OF CARE VITAL SIGNS MEDICATIONS Unknown [...]
--- OUTSIDE RECORDS SUMMARY | 2017-11-27 16:13 | XMS REPORT | Continuity of Care Document ---
Author Author [facility] Address Unknown Phone Unavailable Allergies Active Description Code Type Severity Reaction Onset Reported/Identified Relationship to Patient Clinical Status Yes fear of needles-will pass out OA N/A N/A 08/14/2008 Yes fear of needles-will pass out OA 08/14/2008 Yes hydrochlorothiazide Drug Allergy N/A N/A 01/27/2009 Yes hydrochlorothiazide Drug Allergy 01/27/2009 Yes sulfa drug Drug Allergy 06/23/2010 Yes acetaminophen [id number] Drug Allergy Unknown NAUSEA 10/29/2014 Yes hydrocodone [id number] Drug Allergy Unknown NAUSEA 10/29/2014 Yes fentanyl [id number] Drug Allergy Unknown N/A 01/01/2015 Yes acetaminophen [id number] Drug Allergy Unknown N/A 05/29/2016 Yes adhesive [id number] Drug Allergy Unknown N/A 05/29/2016 Yes hydrocodone [id number] Drug Allergy Unknown N/A 05/29/2016 Yes meperidine [id number] Drug Allergy Unknown HALLUCINATIONS 05/29/2016 Yes Sulfa (Sulfonamide Antibiotics) [id number] Drug Allergy Unknown N/A 2016 Yes pregabalin [id number] Drug Allergy Unknown N/A 07/10/2016 Medications There is no data. Problems Date Dx Coded Attending Type Code [...] Urine 08/14/2008 789.00 Abdominal Pain 08/14/2008 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 FILTER ASSEMBLY, VALERIE S 599.70 Blood In Urine 08/14/2008 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 FILTER [employer]SEMBLY, VALERIE S 789.00 Abdominal Pain 08/14/2008 YATES DO, KARO K 599.70 Blood In Urine 08/14/2008 YATES DO, KARO K 789.00 Abdominal Pain 08/14/2008 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 FILTER ASSEMBLY, VALERIE S 599.70 Blood In Urine 08/14/2008 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 FILTER ASSEMBLY, VALERIE S 789.00 Abdominal Pain 08/14/2008 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 FILTER ASSEMBLY, VALERIE S 599.70 Blood In Urine 08/14/2008 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 FILTER ASSEMBLY, VALERIE S 789.00 Abdominal Pain 08/14/2008 YATES DO, KARO K 599.70 Blood In Urine 08/14/2008 YATES DO, KARO K 789.00 Abdominal Pain 08/14/2008 599.70 Blood In Urine 08/14/2008 789.00 Abdominal Pain 08/14/2008 599.70 Blood In Urine 08/14/2008 789.00 Abdominal Pain 08/14/2008 599.70 Blood In Urine 08/14/2008 789.00 Abdominal Pain 08/14/2008 MICHELLE CAMRAGO MD 599.70 Blood In Urine 08/14/2008 MICHELLE CAMARGO MD 789.00 Abdominal Pain 08/14/2008 SALLY RIVERA, VALERIE S 599.70 Blood In Urine 08/14/2008 SALLY PERSAUDN, VALERIE S 789.00 Abdominal Pain 08/14/2008 SALLY RIVERA VALERIE S 599.70 Blood In Urine 08/14/2008 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 [employer]SEMBL[employer], VALERIE S 789.00 Abdominal Pain 08/14/2008 YATES DO, KARO K 599.70 Blood In Urine 08/14/2008 YATES DO, KARO K 789.00 Abdominal Pain 08/14/2008 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 FILTER [employer]SEMBLY, VALERIE S 599.70 Blood In Urine 08/14/2008 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 FILTER ASSEMBLY, VALERIE S 789.00 Abdominal Pain 08/14/2008 YATES DO, KARO K 599.70 Blood In Urine 08/14/2008 YATES DO, KARO K 789.00 Abdominal Pain 08/14/2008 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 FILTER ASSEMBLY, VALERIE S 599.70 Blood In Urine 08/14/2008 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 FILTER ASSEMBLY, VALERIE S 789.00 Abdominal Pain 08/14/2008 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 FILTER ASSEMBLY, VALERIE S 599.70 Blood In Urine 08/14/2008 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 FILTER ASSEMBLY, VALERIE S 789.00 Abdominal Pain 08/14/2008 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 FILTER ASSEMBLY, VALERIE S 599.70 Blood In Urine 08/14/2008 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 FILTER ASSEMBLY, VALERIE S 789.00 Abdominal Pain 08/14/2008 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 FILTER ASSEMBLY, VALERIE S 599.70 Blood In Urine 08/14/2008 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 FILTER ASSEMBLY, VALERIE S 789.00 Abdominal Pain 08/14/2008 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 FILTER ASSEMBLY, VALERIE S 599.70 Blood In Urine 08/14/2008 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 FILTER ASSEMBLY, VALERIE S 789.00 Abdominal Pain 08/14/2008 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 FILTER ASSEMBLY, VALERIE S 599.70 Blood In Urine 08/14/2008 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 FILTER ASSEMBLY, VALERIE S 789.00 Abdominal Pain 08/14/2008 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 FILTER ASSEMBLY, VALERIE S 599.70 Blood In Urine 08/14/2008 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 FILTER ASSEMBLY, VALERIE S 789.00 Abdominal Pain 08/14/2008 YATES DO, KARO K 599.70 Blood In Urine 08/14/2008 YATES DO, KARO K 789.00 Abdominal Pain 08/14/2008 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 FILTER ASSEMBLY, VALERIE S 599.70 Blood In Urine 08/14/2008 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 FILTER ASSEMBLY, VALERIE S 789.00 Abdominal Pain 08/14/2008 YATES DO, KARO K 599.70 Blood In Urine 08/14/2008 YATES DO, KARO K 789.00 Abdominal Pain 08/14/2008 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 FILTER ASSEMBLY, VALERIE S 599.70 Blood In Urine 08/14/2008 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 FILTER [employer]SEMBLY, VALEIRE S 789.00 Abdominal Pain 08/14/2008 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 FILTER ASSEMBLY, VALERIE S 599.70 Blood In Urine 08/14/2008 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 FILTER ASSEMBLY, VALERIE S 789.00 Abdominal Pain 08/14/2008 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 FILTER ASSEMBLY, VALERIE S 599.70 Blood In Urine 08/14/2008 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 FILTER ASSEMBLY, VALERIE S 789.00 Abdominal Pain 08/14/2008 YATES DO, KARO K 599.70 Blood In Urine 08/14/2008 YATES DO, KARO K 789.00 Abdominal Pain 08/14/2008 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 FILTER ASSEMBLY, VALERIE S 599.70 Blood In Urine 08/14/2008 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 FILTER [employer]SEMBLY, VALERIE S 789.00 Abdominal Pain 09/09/2008 YATES DO, KARO K 599.0 Urinary Tract Infection 09/09/2008 YATES DO, KARO K 599.0 Urinary Tract Infection 09/09/2008 TACO SUPERVISOR FILTER [employer]SEMBLY, ZORAIDA R 599.0 Urinary Tract Infection 09/09/2008 599.0 Urinary Tract Infection 09/09/2008 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 FILTER ASSEMBLY, VALERIE S 599.0 Urinary Tract Infection 09/09/2008 YATES DO, KARO K 599.0 Urinary Tract Infection 09/09/2008 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 FILTER ASSEMBLY, VALERIE S 599.0 Urinary Tract Infection 09/09/2008 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 FILTER ASSEMBLY, VALERIE S 599.0 Urinary Tract Infection 09/09/2008 YATES DO, KARO K 599.0 Urinary Tract Infection 09/09/2008 599.0 Urinary Tract Infection 09/09/2008 599.0 Urinary Tract Infection 09/09/2008 599.0 Urinary Tract Infection 09/09/2008 MICHELLE CAMARGO MD 599.0 Urinary Tract Infection 09/09/2008 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 FILTER ASSEMBLY, VALERIE S 599.0 Urinary Tract Infection 09/09/2008 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 FILTER ASSEMBLY, VALERIE S 599.0 Urinary Tract Infection 09/09/2008 YATES DO, KARO K 599.0 Urinary Tract Infection 09/09/2008 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 FILTER ASSEMBLY, VALERIE S 599.0 Urinary Tract Infection 09/09/2008 YATES DO, KARO K 599.0 Urinary Tract Infection 09/09/2008 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 FILTER ASSEMBLY, VALERIE S 599.0 Urinary Tract Infection 09/09/2008 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 FILTER ASSEMBLY, VALERIE S 599.0 Urinary Tract Infection 09/09/2008 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 FILTER ASSEMBLY, VALERIE S 599.0 Urinary Tract Infection 09/09/2008 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 FILTER ASSEMBLY, VALERIE S 599.0 Urinary Tract Infection 09/09/2008 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 FILTER ASSEMBLY, VALERIE S 599.0 Urinary Tract Infection 09/09/2008 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 FILTER ASSEMBLY, VALERIE S 599.0 Urinary Tract Infection 09/09/2008 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 FILTER ASSEMBLY, VALERIE S 599.0 Urinary Tract Infection 09/09/2008 YATES DO, KARO K 599.0 Urinary Tract Infection 09/09/2008 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 FILTER ASSEMBLY, VALERIE S 599.0 Urinary Tract Infection 09/09/2008 YATES DO, KARO K 599.0 Urinary Tract Infection 09/09/2008 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 FILTER ASSEMBLY, VALERIE S 599.0 Urinary Tract Infection 09/09/2008 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 FILTER ASSEMBLY, VALERIE S 599.0 Urinary Tract Infection 09/09/2008 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 FILTER ASSEMBLY, VALERIE S 599.0 Urinary Tract Infection 09/09/2008 YATES DO, KARO K 599.0 Urinary Tract Infection 09/09/2008 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 FILTER [employer]SEMBLY, VALERIE S 599.0 Urinary Tract Infection 09/30/2008 YATES DO, KARO K 564.1 IRRITABLE BOWEL SYNDROME 09/30/2008 YATES DO, KARO K 724.2 LUMBAGO 09/30/2008 YATES DO, KARO K 564.1 IRRITABLE BOWEL SYNDROME 09/30/2008 YATES DO, KARO K 724.2 LUMBAGO 09/30/2008 CHARLEEN ESPAÑA APRNRICIA R 564.1 IRRITABLE BOWEL SYNDROME 09/30/2008 TACO SUPERVISOR FILTER ASSEMBLY ZORAIDA R 724.2 LUMBAGO 09/30/2008 564.1 IRRITABLE BOWEL SYNDROME 09/30/2008 724.2 LUMBAGO 09/30/2008 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 FILTER ASSEMBLY, VALERIE S 564.1 IRRITABLE BOWEL SYNDROME 09/30/2008 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 FILTER ASSEMBLY, VALERIE S 724.2 LUMBAGO 09/30/2008 YATES DO, KARO K 564.1 IRRITABLE BOWEL SYNDROME 09/30/2008 YATES DO, KARO K 724.2 LUMBAGO 09/30/2008 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 FILTER ASSEMBLY, VALERIE S 564.1 IRRITABLE BOWEL SYNDROME 09/30/2008 SALLY RIVERA, VALERIE S 724.2 LUMBAGO 09/30/2008 SALLY RIVERA, VALERIE S 564.1 IRRITABLE BOWEL SYNDROME 09/30/2008 SALLY RIVERA, VALERIE S 724.2 LUMBAGO 09/30/2008 YATES DO, KARO K 564.1 IRRITABLE BOWEL SYNDROME 09/30/2008 YATES DO, KARO K 724.2 LUMBAGO 09/30/2008 564.1 IRRITABLE BOWEL SYNDROME 09/30/2008 724.2 LUMBAGO 09/30/2008 564.1 IRRITABLE BOWEL SYNDROME 09/30/2008 724.2 LUMBAGO 09/30/2008 564.1 IRRITABLE BOWEL SYNDROME 09/30/2008 724.2 LUMBAGO 09/30/2008 MICHELLE CAMARGO MD 564.1 IRRITABLE BOWEL SYNDROME 09/30/2008 MICHELLE CAMARGO MD 724.2 LUMBAGO 09/30/2008 SALLY RIVERA VALERIE S 564.1 IRRITABLE BOWEL SYNDROME 09/30/2008 SERINA [...] S 564.1 IRRITABLE BOWEL SYNDROME 09/30/2008 SALLY RIVERA, VALERIE S 724.2 LUMBAGO 09/30/2008 SALLY RIVERA VALERIE S 564.1 IRRITABLE BOWEL SYNDROME 09/30/2008 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 FILTER ASSEMBLY, VALERIE S 724.2 LUMBAGO 09/30/2008 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 FILTER ASSEMBLY, VALERIE S 564.1 IRRITABLE BOWEL SYNDROME 09/30/2008 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 FILTER ASSEMBLY, VALERIE S 724.2 LUMBAGO 09/30/2008 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 FILTER ASSEMBLY, VALERIE S 564.1 IRRITABLE BOWEL SYNDROME 09/30/2008 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 FILTER ASSEMBLY, VALERIE S 724.2 LUMBAGO 09/30/2008 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 FILTER ASSEMBLY, VALERIE S 564.1 IRRITABLE BOWEL SYNDROME 09/30/2008 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 FILTER ASSEMBLY, VALERIE S 724.2 LUMBAGO 09/30/2008 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 FILTER ASSEMBLY, VALERIE S 564.1 IRRITABLE BOWEL SYNDROME 09/30/2008 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 FILTER ASSEMBLY, VALERIE S 724.2 LUMBAGO 09/30/2008 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 FILTER ASSEMBLY, VALERIE S 564.1 IRRITABLE BOWEL SYNDROME 09/30/2008 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 FILTER ASSEMBLY, VALERIE S 724.2 LUMBAGO 09/30/2008 YATES DO, KARO K 564.1 IRRITABLE BOWEL SYNDROME 09/30/2008 YATES DO, KARO K 724.2 LUMBAGO 09/30/2008 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 FILTER ASSEMBLY, VALERIE S 564.1 IRRITABLE BOWEL SYNDROME 09/30/2008 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 FILTER ASSEMBLY, VALERIE S 724.2 LUMBAGO 09/30/2008 YATES DO, KARO K 564.1 IRRITABLE BOWEL SYNDROME 09/30/2008 YATES DO, KARO K 724.2 LUMBAGO 09/30/2008 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 FILTER ASSEMBLY, VALERIE S 564.1 IRRITABLE BOWEL SYNDROME 09/30/2008 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 FILTER ASSEMBLY, VALERIE S 724.2 LUMBAGO 09/30/2008 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 FILTER ASSEMBLY, VALERIE S 564.1 IRRITABLE BOWEL SYNDROME 09/30/2008 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 FILTER ASSEMBLY, VALERIE S 724.2 LUMBAGO 09/30/2008 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 FILTER ASSEMBLY, VALERIE S 564.1 IRRITABLE BOWEL SYNDROME 09/30/2008 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 FILTER ASSEMBLY, VALERIE S 724.2 LUMBAGO 09/30/2008 YATES DO, KARO K 564.1 IRRITABLE BOWEL SYNDROME 09/30/2008 YATES DO, KARO K 724.2 LUMBAGO 09/30/2008 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 FILTER ASSEMBLY, VALERIE S 564.1 IRRITABLE BOWEL SYNDROME 09/30/2008 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 FILTER ASSEMBLY, VALERIE S 724.2 LUMBAGO 10/21/2008 YATES DO, KARO K 788.1 Dysuria 10/21/2008 YATES DO, KARO K 788.1 Dysuria 10/21/2008 TACO SUPERVISOR [employer]TER [employer]SEMBLY, ZORAIDA R 788.1 Dysuria 10/21/2008 788.1 Dysuria 10/21/2008 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 FILTER ASSEMBLY, VALERIE S 788.1 Dysuria 10/21/2008 YATES DO, KARO K 788.1 Dysuria 10/21/2008 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 FILTER ASSEMBLY, VALERIE S 788.1 Dysuria 10/21/2008 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 FILTER ASSEMBLY, VALERIE S 788.1 Dysuria 10/21/2008 YATES DO, KARO K 788.1 Dysuria 10/21/2008 788.1 Dysuria 10/21/2008 788.1 Dysuria 10/21/2008 788.1 Dysuria 10/21/2008 MARY JO ABRAMS, MICHELLE 788.1 Dysuria 10/21/2008 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 [employer]TER ASSEMBLY, VALERIE S 788.1 Dysuria 10/21/2008 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 FILTER ASSEMBLY, VALERIE S 788.1 Dysuria 10/21/2008 YATES DO, KARO K 788.1 Dysuria 10/21/2008 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 FILTER ASSEMBLY, VALERIE S 788.1 Dysuria 10/21/2008 YATES DO, KARO K 788.1 Dysuria 10/21/2008 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 FILTER ASSEMBLY, VALERIE S 788.1 Dysuria 10/21/2008 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 FILTER ASSEMBLY, VALERIE S 788.1 Dysuria 10/21/2008 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 FILTER ASSEMBLY, VALERIE S 788.1 Dysuria 10/21/2008 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 FILTER ASSEMBLY, VALERIE S 788.1 Dysuria 10/21/2008 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 FILTER ASSEMBLY, VALERIE S 788.1 Dysuria 10/21/2008 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 FILTER ASSEMBLY, VALERIE S 788.1 Dysuria 10/21/2008 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 FILTER ASSEMBLY, VALERIE S 788.1 Dysuria 10/21/2008 YATES DO, KARO K 788.1 Dysuria 10/21/2008 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 FILTER ASSEMBLY, VALERIE S 788.1 Dysuria 10/21/2008 YATES DO, KARO K 788.1 Dysuria 10/21/2008 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 FILTER ASSEMBLY, VALERIE S 788.1 Dysuria 10/21/2008 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 FILTER ASSEMBLY, VALERIE S 788.1 Dysuria 10/21/2008 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 FILTER ASSEMBLY, VALERIE S 788.1 Dysuria 10/21/2008 YATES DO, KARO K 788.1 Dysuria 10/21/2008 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 FILTER ASSEMBLY, VALERIE S 788.1 Dysuria 01/13/2009 YATES DO, KARO K 300.00 Anxiety State Unspecified 01/13/2009 YATES DO, KARO K 401.9 UNSPECIFIED ESSENTIAL HYPERTENSION 01/13/2009 YATSE DO, KARO K 300.00 Anxiety State Unspecified 01/13/2009 YATES DO, KARO K 401.9 UNSPECIFIED ESSENTIAL HYPERTENSION 01/13/2009 ESPAÑA SUPERVISOR FILTER ASSEMBLY, ZORAIDA R 300.00 Anxiety State Unspecified 01/13/2009 ESPAÑA SUPERVISOR FILTER ASSEMBLY, ZORAIDA R 401.9 UNSPECIFIED ESSENTIAL HYPERTENSION 01/13/2009 300.00 Anxiety State Unspecified 01/13/2009 401.9 UNSPECIFIED ESSENTIAL HYPERTENSION 01/13/2009 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 FILTER ASSEMBLY, VALERIE S 300.00 Anxiety State Unspecified 01/13/2009 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 FILTER ASSEMBLY, VALERIE S 401.9 UNSPECIFIED ESSENTIAL HYPERTENSION 01/13/2009 YATES DO, KARO K 300.00 Anxiety State Unspecified 01/13/2009 YATES DO, KARO K 401.9 UNSPECIFIED ESSENTIAL HYPERTENSION 01/13/2009 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 FILTER ASSEMBLY, VALERIE S 300.00 Anxiety State Unspecified 01/13/2009 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 FILTER ASSEMBLY, VALERIE S 401.9 UNSPECIFIED ESSENTIAL HYPERTENSION 01/13/2009 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 FILTER ASSEMBLY, VALERIE S 300.00 Anxiety State Unspecified 01/13/2009 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 FILTER ASSEMBLY, VALERIE S 401.9 UNSPECIFIED ESSENTIAL HYPERTENSION 01/13/2009 [...] MD 401.9 UNSPECIFIED ESSENTIAL HYPERTENSION 01/13/2009 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 FILTER ASSEMBLY VALERIE S 300.00 Anxiety State Unspecified 01/13/2009 SALLY RIVERA VALERIE S 401.9 UNSPECIFIED ESSENTIAL HYPERTENSION 01/13/2009 SALLY PERSAUDN VALERIE S 300.00 Anxiety State Unspecified 01/13/2009 SERINA ZAVALA APRNNDA S 401.9 UNSPECIFIED ESSENTIAL HYPERTENSION 01/13/2009 YATES DO, KARO K 300.00 Anxiety State Unspecified 01/13/2009 YATES DO, KARO K 401.9 UNSPECIFIED ESSENTIAL HYPERTENSION 01/13/2009 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 FILTER ASSEMBLY VALERIE S 300.00 Anxiety State Unspecified 01/13/2009 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 FILTER ASSEMBLY VALERIE S 401.9 UNSPECIFIED ESSENTIAL HYPERTENSION 01/13/2009 YATES DO, KARO K 300.00 Anxiety State Unspecified 01/13/2009 YATES DO, KARO K 401.9 UNSPECIFIED ESSENTIAL HYPERTENSION 01/13/2009 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 FILTER ASSEMBLY, VALERIE S 300.00 Anxiety State Unspecified 01/13/2009 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 FILTER ASSEMBLY, VALERIE S 401.9 UNSPECIFIED ESSENTIAL HYPERTENSION 01/13/2009 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 FILTER ASSEMBLY, VALERIE S 300.00 Anxiety State Unspecified 01/13/2009 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 FILTER ASSEMBLY VALERIE S 401.9 UNSPECIFIED ESSENTIAL HYPERTENSION 01/13/2009 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 FILTER ASSEMBLY, VALERIE S 300.00 Anxiety State Unspecified 01/13/2009 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 FILTER ASSEMBLY, VALERIE S 401.9 UNSPECIFIED ESSENTIAL HYPERTENSION 01/13/2009 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 FILTER ASSEMBLY, VALERIE S 300.00 Anxiety State Unspecified 01/13/2009 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 FILTER ASSEMBLY, VALERIE S 401.9 UNSPECIFIED ESSENTIAL HYPERTENSION 01/13/2009 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 FILTER ASSEMBLY, VALERIE S 300.00 Anxiety State Unspecified 01/13/2009 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 FILTER ASSEMBLY, VALERIE S 401.9 UNSPECIFIED ESSENTIAL HYPERTENSION 01/13/2009 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 FILTER ASSEMBLY, VALERIE S 300.00 Anxiety State Unspecified 01/13/2009 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 FILTER ASSEMBLY, VALERIE S 401.9 UNSPECIFIED ESSENTIAL HYPERTENSION 01/13/2009 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 FILTER ASSEMBLY, VALERIE S 300.00 Anxiety State Unspecified 01/13/2009 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 FILTER ASSEMBLY, VALERIE S 401.9 UNSPECIFIED ESSENTIAL HYPERTENSION 01/13/2009 YATES DO, KARO K 300.00 Anxiety State Unspecified 01/13/2009 YATES DO, KARO K 401.9 UNSPECIFIED ESSENTIAL HYPERTENSION 01/13/2009 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 FILTER ASSEMBLY, VALERIE S 300.00 Anxiety State Unspecified 01/13/2009 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 FILTER ASSEMBLY, VALERIE S 401.9 UNSPECIFIED ESSENTIAL HYPERTENSION 01/13/2009 YATES DO, KARO K 300.00 Anxiety State Unspecified 01/13/2009 YATES DO, KARO K 401.9 UNSPECIFIED ESSENTIAL HYPERTENSION 01/13/2009 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 FILTER ASSEMBLY, VALERIE S 300.00 Anxiety State Unspecified 01/13/2009 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 FILTER ASSEMBLY, VALERIE S 401.9 UNSPECIFIED ESSENTIAL HYPERTENSION 01/13/2009 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 FILTER ASSEMBLY, VALERIE S 300.00 Anxiety State Unspecified 01/13/2009 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 FILTER ASSEMBLY, VALERIE S 401.9 UNSPECIFIED ESSENTIAL HYPERTENSION 01/13/2009 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 FILTER ASSEMBLY, VALERIE S 300.00 Anxiety State Unspecified 01/13/2009 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 FILTER ASSEMBLY, VALERIE S 401.9 UNSPECIFIED ESSENTIAL HYPERTENSION 01/13/2009 YATES DO, KARO K 300.00 Anxiety State Unspecified 01/13/2009 YATES DO, KARO K 401.9 UNSPECIFIED ESSENTIAL HYPERTENSION 01/13/2009 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 FILTER ASSEMBLY, VALERIE S 300.00 Anxiety State Unspecified 01/13/2009 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 FILTER ASSEMBLY, VALERIE S 401.9 UNSPECIFIED ESSENTIAL HYPERTENSION 03/25/2009 YATES DO, KARO K 296.90 Episodic Mood Disorders 03/25/2009 YATES DO, KARO K 780.79 Feelings Of Weakness 03/25/2009 YATES DO, KARO K 787.91 Diarrhea 03/25/2009 YATES DO, KARO K 296.90 Episodic Mood Disorders 03/25/2009 YATES DO, KARO K 780.79 Feelings Of Weakness 03/25/2009 YATES DO, KARO K 787.91 Diarrhea 03/25/2009 ESPAÑA SUPERVIS[employer]SEMBLY, ZORAIDA R 296.90 Episodic Mood Disorders 03/25/2009 ESPAÑA SUPERVISOR FILTER ASSEMBLY, ZORAIDA R 780.79 Feelings Of Weakness 03/25/2009 ESPAÑA SUPERVISOR FILTER ASSEMBLY, ZORAIDA R 787.91 Diarrhea 03/25/2009 296.90 Episodic [...] VALERIE S 780.79 Feelings Of Weakness 03/25/2009 SERINA ZAVALA APRNNDA S 787.91 Diarrhea 03/25/2009 SERINA ZAVALA APRNNDA S 296.90 Episodic Mood Disorders 03/25/2009 SALLY RIVERA VALERIE S 780.79 Feelings Of Weakness 03/25/2009 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 FILTER ASSEMBLY, VALERIE S 787.91 Diarrhea 03/25/2009 YATES DO, [...] S 296.90 Episodic Mood Disorders 03/25/2009 SALLY PERSAUDN VALERIE S 780.79 Feelings Of Weakness 03/25/2009 [...] DO, KARO K 787.91 Diarrhea 03/25/2009 SALLY RIVERA, VALERIE S 296.90 Episodic Mood Disorders 03/25/2009 SALLY RIVERA VALERIE S 780.79 Feelings Of Weakness 03/25/2009 SALLY RIVERA, VALERIE S 787.91 Diarrhea 03/25/2009 YATES DO, KARO K 296.90 Episodic Mood Disorders 03/25/2009 YATES DO, KARO K 780.79 Feelings Of Weakness 03/25/2009 YATES DO, KARO K 787.91 Diarrhea 03/25/2009 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 FILTER ASSEMBLY, VALERIE S 296.90 Episodic Mood Disorders 03/25/2009 SALLY RIVERA VALERIE S 780.79 Feelings Of Weakness 03/25/2009 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 FILTER ASSEMBLY VALERIE S 787.91 Diarrhea 03/25/2009 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 FILTER ASSEMBLY VALERIE S 296.90 Episodic Mood Disorders 03/25/2009 [...] SERINA ZAVALA APRNNDA S 787.91 Diarrhea 03/25/2009 SALLY RIVERA VALERIE [...] S 296.90 Episodic Mood Disorders 03/25/2009 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 FILTER ASSEMBLY, VALERIE S 780.79 Feelings Of Weakness 03/25/2009 SALLY RIVERA VALERIE S 787.91 Diarrhea 03/25/2009 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 FILTER ASSEMBLY, VALERIE S 296.90 Episodic Mood Disorders 03/25/2009 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 FILTER ASSEMBLY, VALERIE S 780.79 Feelings Of Weakness 03/25/2009 [...] APRNNDA S 599.71 Gross Hematuria 10/20/2009 SERINA ZAAVLA APRNNDA S 599.71 Gross Hematuria 10/20/2009 YATES DO, KARO K 599.71 Gross Hematuria 10/20/2009 599.71 Gross Hematuria 10/20/2009 599.71 Gross Hematuria 10/20/2009 599.71 Gross Hematuria 10/20/2009 MARY JO ABRAMS, MICHELLE 599.71 Gross Hematuria 10/20/2009 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 FILTER ASSEMBLY, VALERIE S 599.71 Gross Hematuria 10/20/2009 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 FILTER ASSEMBLY, VALERIE S 599.71 Gross Hematuria 10/20/2009 YATES DO, KARO K 599.71 Gross Hematuria 10/20/2009 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 FILTER ASSEMBLY, VALERIE S 599.71 Gross Hematuria 10/20/2009 YATES DO, KARO K 599.71 Gross Hematuria 10/20/2009 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 FILTER ASSEMBLY, VALERIE S 599.71 Gross Hematuria 10/20/2009 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 FILTER ASSEMBLY, VALERIE S 599.71 Gross Hematuria 10/20/2009 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 FILTER ASSEMBLY, VALERIE S 599.71 Gross Hematuria 10/20/2009 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 FILTER ASSEMBLY, VALERIE S 599.71 Gross Hematuria 10/20/2009 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 FILTER ASSEMBLY, VALERIE S 599.71 Gross Hematuria 10/20/2009 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 FILTER ASSEMBLY, VALERIE S 599.71 Gross Hematuria 10/20/2009 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 FILTER ASSEMBLY, VALERIE S 599.71 Gross Hematuria 10/20/2009 YATES DO, KARO K 599.71 Gross Hematuria 10/20/2009 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 FILTER ASSEMBLY, VALERIE S 599.71 Gross Hematuria 10/20/2009 YATES DO, KARO K 599.71 Gross Hematuria 10/20/2009 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 [employer]SEM[employer], VALERIE S 599.71 Gross Hematuria 10/20/2009 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 [employer], VALERIE S 599.71 Gross Hematuria 10/20/2009 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 [employer], VALERIE S 599.71 Gross Hematuria 10/20/2009 YATES DO, KARO K 599.71 Gross Hematuria 10/20/2009 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, VALERIE S 599.71 Gross Hematuria 10/27/2009 YATES [...] KARO K 788.41 Urinary Frequency 10/27/2009 ESPAÑA [employer], ZORAIDA R 305.1 NICOTINE DEPENDENCE 10/27/2009 [employer], ZORAIDA R 307.40 Insomnia 10/27/2009 [employer], ZORAIDA R 536.8 Dyspepsia And Other Specified Disorders Of Function Of Stomach 10/27/2009 ESPAÑ[employer], ZORAIDA R 788.41 Urinary Frequency 10/27/2009 305.1 NICOTINE DEPENDENCE 10/27/2009 307.40 Insomnia 10/27/2009 536.8 Dyspepsia And Other Specified Disorders Of Function Of Stomach 10/27/2009 788.41 Urinary Frequency 10/27/2009 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, VALERIE S 305.1 NICOTINE DEPENDENCE 10/27/2009 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 [employer], VALERIE S 307.40 Insomnia 10/27/2009 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 [employer], VALERIE S 536.8 Dyspepsia And Other Specified Disorders Of Function Of Stomach 10/27/2009 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 [employer], VALERIE S 788.41 Urinary Frequency 10/27/2009 YATES DO, KARO K 305.1 NICOTINE DEPENDENCE 10/27/2009 YATES DO, KARO K 307.40 Insomnia 10/27/2009 YATES DO, KARO K 536.8 Dyspepsia And Other Specified Disorders Of Function Of Stomach 10/27/2009 YATES DO, KARO K 788.41 Urinary Frequency 10/27/2009 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 [employer], VALERIE S 305.1 NICOTINE DEPENDENCE 10/27/2009 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 [employer], VALERIE S 307.40 Insomnia 10/27/2009 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 [employer], VALERIE S 536.8 Dyspepsia And Other Specified Disorders Of Function Of Stomach 10/27/2009 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, VALERIE S 788.41 Urinary Frequency 10/27/2009 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 [employer], VALERIE S 305.1 NICOTINE DEPENDENCE 10/27/2009 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 [employer], VALERIE S 307.40 Insomnia 10/27/2009 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 [employer], VALERIE S 536.8 Dyspepsia And Other Specified Disorders Of Function Of Stomach 10/27/2009 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, VALERIE S 788.41 Urinary Frequency 10/27/2009 YATES DO, KARO K 305.1 NICOTINE DEPENDENCE 10/27/2009 YATES DO KARO K 307.40 Insomnia 10/27/2009 YATES DO, [...] CAMARGO MD 788.41 Urinary Frequency 10/27/2009 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, VALERIE S 305.1 NICOTINE DEPENDENCE 10/27/2009 SALLY PERSAUDN, VALERIE S 307.40 Insomnia 10/27/2009 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, VALERIE S 536.8 Dyspepsia And Other Specified Disorders Of Function Of Stomach 10/27/2009 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 [employer], VALERIE S 788.41 Urinary Frequency 10/27/2009 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 [employer], VALERIE S 305.1 NICOTINE DEPENDENCE 10/27/2009 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 [employer], VALERIE S 307.40 Insomnia 10/27/2009 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 [employer], VALERIE S 536.8 Dyspepsia And Other Specified Disorders Of Function Of Stomach 10/27/2009 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, VALERIE S 788.41 Urinary Frequency 10/27/2009 YATES DO, KARO K 305.1 NICOTINE DEPENDENCE 10/27/2009 YATES DO, KARO K 307.40 Insomnia 10/27/2009 YATES DO, KARO K 536.8 Dyspepsia And Other Specified Disorders Of Function Of Stomach 10/27/2009 YATES DO, KARO K 788.41 Urinary Frequency 10/27/2009 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 FILTER ASSEMBLY, VALERIE S 305.1 NICOTINE DEPENDENCE 10/27/2009 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 FILTER ASSEMBLY, VALERIE S 307.40 Insomnia 10/27/2009 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 FILTER ASSEMBLY, VALERIE S 536.8 Dyspepsia And Other Specified Disorders Of Function Of Stomach 10/27/2009 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 FILTER ASSEMBLY, VALERIE S 788.41 Urinary Frequency 10/27/2009 YATES DO, KARO K 305.1 NICOTINE DEPENDENCE 10/27/2009 YATES DO, KARO K 307.40 Insomnia 10/27/2009 YATES DO, KARO K 536.8 Dyspepsia And Other Specified Disorders Of Function Of Stomach 10/27/2009 YATES DO, KARO K 788.41 Urinary Frequency 10/27/2009 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 FILTER ASSEMBLY, VALERIE S 305.1 NICOTINE DEPENDENCE 10/27/2009 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 FILTER ASSEMBLY, VALERIE S 307.40 Insomnia 10/27/2009 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 FILTER ASSEMBLY, VALERIE S 536.8 Dyspepsia And Other Specified Disorders Of Function Of Stomach 10/27/2009 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 FILTER ASSEMBLY, VALERIE S 788.41 Urinary Frequency 10/27/2009 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 FILTER ASSEMBLY, VALERIE S 305.1 NICOTINE DEPENDENCE 10/27/2009 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 FILTER ASSEMBLY, VALERIE S 307.40 Insomnia 10/27/2009 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 FILTER ASSEMBLY, VALERIE S 536.8 Dyspepsia And Other Specified Disorders Of Function Of Stomach 10/27/2009 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 FILTER ASSEMBLY, VALERIE S 788.41 Urinary Frequency 10/27/2009 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 FILTER ASSEMBLY, VALERIE S 305.1 NICOTINE DEPENDENCE 10/27/2009 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 FILTER ASSEMBLY, VALERIE S 307.40 Insomnia 10/27/2009 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 FILTER ASSEMBLY, VALERIE S 536.8 Dyspepsia And Other Specified Disorders Of Function Of Stomach 10/27/2009 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 FILTER ASSEMBLY, VALERIE S 788.41 Urinary Frequency 10/27/2009 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 FILTER ASSEMBLY, VALERIE S 305.1 NICOTINE DEPENDENCE 10/27/2009 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 FILTER ASSEMBLY, VALERIE S 307.40 Insomnia 10/27/2009 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 FILTER ASSEMBLY, VALERIE S 536.8 Dyspepsia And Other Specified Disorders Of Function Of Stomach 10/27/2009 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 FILTER ASSEMBLY, VALERIE S 788.41 Urinary Frequency 10/27/2009 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 FILTER ASSEMBLY, VALERIE S 305.1 NICOTINE DEPENDENCE 10/27/2009 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 FILTER ASSEMBLY, VALERIE S 307.40 Insomnia 10/27/2009 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 FILTER ASSEMBLY, VALERIE S 536.8 Dyspepsia And Other Specified Disorders Of Function Of Stomach 10/27/2009 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 FILTER ASSEMBLY, VALERIE S 788.41 Urinary Frequency 10/27/2009 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 FILTER ASSEMBLY, VALERIE S 305.1 NICOTINE DEPENDENCE 10/27/2009 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 FILTER ASSEMBLY, VALERIE S 307.40 Insomnia 10/27/2009 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 FILTER ASSEMBLY, VALERIE S 536.8 Dyspepsia And Other Specified Disorders Of Function Of Stomach 10/27/2009 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 FILTER ASSEMBLY, VALERIE S 788.41 Urinary Frequency 10/27/2009 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 FILTER ASSEMBLY, VALERIE S 305.1 NICOTINE DEPENDENCE 10/27/2009 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 FILTER ASSEMBLY, VALERIE S 307.40 Insomnia 10/27/2009 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 FILTER ASSEMBLY, VALERIE S 536.8 Dyspepsia And Other Specified Disorders Of Function Of Stomach 10/27/2009 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 FILTER ASSEMBLY, VALERIE S 788.41 Urinary Frequency 10/27/2009 YATES DO, KARO K 305.1 NICOTINE DEPENDENCE 10/27/2009 YATES DO, KARO K 307.40 Insomnia 10/27/2009 YATES DO, KARO K 536.8 Dyspepsia And Other Specified Disorders Of Function Of Stomach 10/27/2009 YATES DO, KARO K 788.41 Urinary Frequency 10/27/2009 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 FILTER ASSEMBLY, VALERIE S 305.1 NICOTINE DEPENDENCE 10/27/2009 SALLY SUPERVISOR FILTER ASSEMBLY, VALERIE S 307.40 Insomnia 10/27/2009 SALLY SUPERVISOR FILTER ASSEMBLY, VALERIE S 536.8 Dyspepsia And Other Specified Disorders Of Function Of Stomach 10/27/2009 SALLY SUPERVISOR FILTER ASSEMBLY, VALERIE S 788.41 Urinary Frequency 10/27/2009 YATES DO, KARO K 305.1 NICOTINE DEPENDENCE 10/27/2009 YATES DO, KARO K 307.40 Insomnia 10/27/2009 YATES DO, KARO K 536.8 Dyspepsia And Other Specified Disorders Of Function Of Stomach 10/27/2009 YATES DO, KARO K 788.41 Urinary Frequency 10/27/2009 SALLY SUPERVISOR FILTER ASSEMBLY, VALERIE S 305.1 NICOTINE DEPENDENCE 10/27/2009 SALLY SUPERVISOR FILTER ASSEMBLY, VALERIE S 307.40 Insomnia 10/27/2009 SALLY SUPERVISOR FILTER ASSEMBLY, VALERIE S 536.8 Dyspepsia And Other Specified Disorders Of Function Of Stomach 10/27/2009 SALLY SUPERVISOR FILTER ASSEMBLY, VALERIE S 788.41 Urinary Frequency 10/27/2009 SALLY SUPERVISOR FILTER ASSEMBLY, VALERIE S 305.1 NICOTINE DEPENDENCE 10/27/2009 SALLY SUPERVISOR FILTER ASSEMBLY, VALERIE S 307.40 Insomnia 10/27/2009 SALLY SUPERVISOR FILTER ASSEMBLY, VALERIE S 536.8 Dyspepsia And Other Specified Disorders Of Function Of Stomach 10/27/2009 SALLY SUPERVISOR FILTER ASSEMBLY, VALERIE S 788.41 Urinary Frequency 10/27/2009 SALLY SUPERVISOR FILTER ASSEMBLY, VALERIE S 305.1 NICOTINE DEPENDENCE 10/27/2009 SALLY SUPERVISOR FILTER ASSEMBLY, VALERIE S 307.40 Insomnia 10/27/2009 SALLY SUPERVISOR FILTER ASSEMBLY, VALERIE S 536.8 Dyspepsia And Other Specified Disorders Of Function Of Stomach 10/27/2009 SALLY SUPERVISOR FILTER ASSEMBLY, VALERIE S 788.41 Urinary Frequency 10/27/2009 YATES DO, KARO K 305.1 NICOTINE DEPENDENCE 10/27/2009 YATES DO, KARO K 307.40 Insomnia 10/27/2009 YATES DO, KARO K 536.8 Dyspepsia And Other Specified Disorders Of Function Of Stomach 10/27/2009 YATES DO, KARO K 788.41 Urinary Frequency 10/27/2009 SALLY SUPERVISOR FILTER ASSEMBLY, VALERIE S 305.1 NICOTINE DEPENDENCE 10/27/2009 SALLY SUPERVISOR FILTER ASSEMBLY, VALERIE S 307.40 Insomnia 10/27/2009 SALLY SUPERVISOR FILTER ASSEMBLY, VALERIE S 536.8 Dyspepsia And Other Specified Disorders Of Function Of Stomach 10/27/2009 SALLY SUPERVISOR FILTER ASSEMBLY, VALERIE S 788.41 Urinary Frequency 12/03/2009 YATES DO, KARO K 564.00 Constipation 12/03/2009 YATES DO, KARO K 564.00 Constipation 12/03/2009 ZORAIDA ESPAÑA APRN R 564.00 Constipation 12/03/2009 564.00 Constipation 12/03/2009 SALLY SUPERVISOR FILTER ASSEMBLY, VALERIE S 564.00 Constipation 12/03/2009 YATES DO, KARO K 564.00 Constipation 12/03/2009 SALLY SUPERVISOR FILTER ASSEMBLY, VALERIE S 564.00 Constipation 12/03/2009 SALLY SUPERVISOR FILTER ASSEMBLY, VALERIE S 564.00 Constipation 12/03/2009 YATES DO KARO K 564.00 Constipation 12/03/2009 564.00 Constipation 12/03/2009 564.00 Constipation 12/03/2009 564.00 Constipation 12/03/2009 MICHELLE CAMARGO MD 564.00 Constipation 12/03/2009 SALLY SUPERVISOR FILTER ASSEMBLY, VALERIE S 564.00 Constipation 12/03/2009 SALLY SUPERVISOR FILTER ASSEMBLY, VALERIE S 564.00 Constipation 12/03/2009 YATES DO, KARO K 564.00 Constipation 12/03/2009 SALLY SUPERVISOR FILTER ASSEMBLY, VALERIE S 564.00 Constipation 12/03/2009 YATES DO, KARO K 564.00 Constipation 12/03/2009 SALLY SUPERVISOR FILTER ASSEMBLY, VALERIE S 564.00 Constipation 12/03/2009 SALLY SUPERVISOR FILTER ASSEMBLY, VALERIE S 564.00 Constipation 12/03/2009 SALLY SUPERVISOR FILTER ASSEMBLY, VALERIE S 564.00 Constipation 12/03/2009 SALLY SUPERVISOR FILTER ASSEMBLY, VALERIE S 564.00 Constipation 12/03/2009 SALLY SUPERVISOR FILTER ASSEMBLY, VALERIE S 564.00 Constipation 12/03/2009 SALLY SUPERVISOR FILTER ASSEMBLY, VALERIE S 564.00 Constipation 12/03/2009 SALLY SUPERVISOR FILTER ASSEMBLY, VALERIE S 564.00 Constipation 12/03/2009 YATES DO KARO K 564.00 Constipation 12/03/2009 SALLY SUPERVISOR FILTER ASSEMBLY, VALERIE S 564.00 Constipation 12/03/2009 YATES DO, KARO K 564.00 Constipation 12/03/2009 SALLY SUPERVISOR FILTER ASSEMBLY, VALERIE S 564.00 Constipation 12/03/2009 SALLY SUPERVISOR FILTER ASSEMBLY, VALERIE S 564.00 Constipation 12/03/2009 SALLY SUPERVISOR FILTER ASSEMBLY, VALERIE S 564.00 Constipation 12/03/2009 YATES DO, KARO K 564.00 Constipation 12/03/2009 SALLY SUPERVISOR FILTER ASSEMBLY, VALERIE S 564.00 Constipation 02/22/2010 Ot 530.81 02/22/2010 Ot 789.09 02/22/2010 Ot V12.72 05/11/2010 YATES DO, KARO K 724.5 Back Pain, General 05/11/2010 YATES DO KARO K 724.5 Back Pain, General 05/11/2010 ZORAIDA ESPAÑA APRN 724.5 Back Pain, General 05/11/2010 724.5 Back Pain, General 05/11/2010 SALLY SUPERVISOR FILTER ASSEMBLY VALERIE S 724.5 Back Pain, General 05/11/2010 YATES DO KARO K 724.5 Back Pain, General 05/11/2010 SALLY SUPERVISOR FILTER ASSEMBLY, VALERIE S 724.5 Back Pain, General 05/11/2010 SALLY SUPERVISOR FILTER ASSEMBLY, VALERIE S 724.5 Back Pain, General 05/11/2010 YATES DO KARO K 724.5 Back Pain, General 05/11/2010 724.5 Back Pain, General 05/11/2010 724.5 Back Pain, General 05/11/2010 724.5 Back Pain, General 05/11/2010 MARY JO ABRAMS, MICHELLE 724.5 Back Pain, General 05/11/2010 SALLY SUPERVISOR FILTER ASSEMBLY, VALERIE S 724.5 Back Pain, General 05/11/2010 SALLY SUPERVISOR FILTER ASSEMBLY, VALERIE S 724.5 Back Pain, General 05/11/2010 YATES DO KARO K 724.5 Back Pain, General 05/11/2010 SALLY SUPERVISOR FILTER ASSEMBLY, VALERIE S 724.5 Back Pain, General 05/11/2010 YATES DO KARO K 724.5 Back Pain, General 05/11/2010 SALLY SUPERVISOR FILTER ASSEMBLY, VALERIE S 724.5 Back Pain, General 05/11/2010 SALLY SUPERVISOR FILTER ASSEMBLY, VALERIE S 724.5 Back Pain, General 05/11/2010 SALLY SUPERVISOR FILTER ASSEMBLY, VALERIE S 724.5 Back Pain, General 05/11/2010 SALLY SUPERVISOR FILTER ASSEMBLY, VALERIE S 724.5 Back Pain, General 05/11/2010 SALLY SUPERVISOR FILTER ASSEMBLY, VALERIE S 724.5 Back Pain, General 05/11/2010 SALLY SUPERVISOR FILTER ASSEMBLY, VALERIE S 724.5 Back Pain, General 05/11/2010 SALLY SUPERVISOR FILTER ASSEMBLY, VALERIE S 724.5 Back Pain, General 05/11/2010 YATES DO, KARO K 724.5 Back Pain, General 05/11/2010 SALLY SUPERVISOR FILTER ASSEMBLY, VALERIE S 724.5 Back Pain, General 05/11/2010 YATES DO, KARO K 724.5 Back Pain, General 05/11/2010 SALLY SUPERVISOR FILTER ASSEMBLY, VALERIE S 724.5 Back Pain, General 05/11/2010 SALLY SUPERVISOR FILTER ASSEMBLY, VALERIE S 724.5 Back Pain, General 05/11/2010 SALLY SUPERVISOR FILTER ASSEMBLY, VALERIE S 724.5 Back Pain, General 05/11/2010 YATES DO, KARO K 724.5 Back Pain, General 05/11/2010 SALLY SUPERVISOR FILTER ASSEMBLY, VALERIE S 724.5 Back Pain, General 05/21/2010 YATES DO KARO K 627.9 Menopausal And Postmenopausal Disorder Unspecified 05/21/2010 YATES DO KARO K 722.10 Displacement Of Lumbar Intervertebral Disc Without Myelopathy 05/21/2010 YATES DO KARO K V72.31 Charging Operator Exam, Routine 05/21/2010 YATES DO KARO K 627.9 Menopausal And Postmenopausal Disorder Unspecified 05/21/2010 YATES DO KARO K 722.10 Displacement Of Lumbar Intervertebral Disc Without Myelopathy 05/21/2010 YATES DO KARO K V72.31 Charging Operator Exam, Routine 05/21/2010 ZORAIDA ESPAÑA APRN R 627.9 Menopausal And Postmenopausal Disorder Unspecified 05/21/2010 ZORAIDA ESPAÑA APRN R 722.10 Displacement Of Lumbar Intervertebral Disc Without Myelopathy 05/21/2010 ZORAIDA ESPAÑA APRN V72.31 Charging Operator Exam, Routine 05/21/2010 627.9 Menopausal And Postmenopausal Disorder Unspecified 05/21/2010 722.10 Displacement Of Lumbar Intervertebral Disc Without Myelopathy 05/21/2010 V72.31 Charging Operator Exam, Routine 05/21/2010 SALLY SUPERVISOR FILTER ASSEMBLY VALERIE S 627.9 Menopausal And Postmenopausal Disorder Unspecified 05/21/2010 SALLY SUPERVISOR FILTER ASSEMBLY VALERIE S 722.10 Displacement Of Lumbar Intervertebral Disc Without Myelopathy 05/21/2010 SALLY SUPERVISOR FILTER ASSEMBLY VALERIE S V72.31 Charging Operator Exam, Routine 05/21/2010 YATES DO KARO K 627.9 Menopausal And Postmenopausal Disorder Unspecified 05/21/2010 YATES DO KARO K 722.10 Displacement Of Lumbar Intervertebral Disc Without Myelopathy 05/21/2010 YATES DO KARO K V72.31 Charging Operator Exam, Routine 05/21/2010 SALLY SUPERVISOR FILTER ASSEMBLY VALERIE S 627.9 Menopausal And Postmenopausal Disorder Unspecified 05/21/2010 SALLY SUPERVISOR FILTER ASSEMBLY VALERIE S 722.10 Displacement Of Lumbar Intervertebral Disc Without Myelopathy 05/21/2010 SALLY SUPERVISOR FILTER ASSEMBLY VALERIE S V72.31 Charging Operator Exam, Routine 05/21/2010 SALLY SUPERVISOR FILTER ASSEMBLY VALERIE S 627.9 Menopausal And Postmenopausal Disorder Unspecified 05/21/2010 SALLY SUPERVISOR FILTER ASSEMBLY, VALERIE S 722.10 Displacement Of Lumbar Intervertebral Disc Without Myelopathy 05/21/2010 SALLY SUPERVISOR FILTER ASSEMBLY VALERIE S V72.31 Charging Operator Exam, Routine 05/21/2010 MILAN DO KARO K 627.9 Menopausal And Postmenopausal Disorder Unspecified 05/21/2010 YATES DO KARO K 722.10 Displacement Of Lumbar Intervertebral Disc Without Myelopathy 05/21/2010 YATES DO KARO K V72.31 Charging Operator Exam, Routine 05/21/2010 627.9 Menopausal And Postmenopausal Disorder Unspecified 05/21/2010 722.10 Displacement Of Lumbar Intervertebral Disc Without Myelopathy 05/21/2010 V72.31 Charging Operator Exam, Routine 05/21/2010 627.9 Menopausal And Postmenopausal Disorder Unspecified 05/21/2010 722.10 Displacement Of Lumbar Intervertebral Disc Without Myelopathy 05/21/2010 V72.31 Charging Operator Exam, Routine 05/21/2010 627.9 Menopausal And Postmenopausal Disorder Unspecified 05/21/2010 722.10 Displacement Of Lumbar Intervertebral Disc Without Myelopathy 05/21/2010 V72.31 Charging Operator Exam, Routine 05/21/2010 MICHELLE CAMARGO MD 627.9 Menopausal And Postmenopausal Disorder Unspecified 05/21/2010 MICHELLE CAMARGO MD 722.10 Displacement Of Lumbar Intervertebral Disc Without Myelopathy 05/21/2010 MICHELLE CAMARGO MD V72.31 Charging Operator Exam, Routine 05/21/2010 SALLY SUPERVISOR FILTER ASSEMBLY, VALERIE S 627.9 Menopausal And Postmenopausal Disorder Unspecified 05/21/2010 SALLY SUPERVISOR FILTER ASSEMBLY, VALERIE S 722.10 Displacement Of Lumbar Intervertebral Disc Without Myelopathy 05/21/2010 SALLY SUPERVISOR FILTER ASSEMBLY, VALERIE S V72.31 Charging Operator Exam, Routine 05/21/2010 SALLY SUPERVISOR FILTER ASSEMBLY, VALERIE S 627.9 Menopausal And Postmenopausal Disorder Unspecified 05/21/2010 SLALY SUPERVISOR FILTER ASSEMBLY, VALERIE S 722.10 Displacement Of Lumbar Intervertebral Disc Without Myelopathy 05/21/2010 SALLY SUPERVISOR FILTER ASSEMBLY, VALERIE S V72.31 Charging Operator Exam, Routine 05/21/2010 YATES DO, KARO K 627.9 Menopausal And Postmenopausal Disorder Unspecified 05/21/2010 YATES DO, KARO K 722.10 Displacement Of Lumbar Intervertebral Disc Without Myelopathy 05/21/2010 YATES DO, KARO K V72.31 Charging Operator Exam, Routine 05/21/2010 SALLY SUPERVISOR FILTER ASSEMBLY, VALERIE S 627.9 Menopausal And Postmenopausal Disorder Unspecified 05/21/2010 SALLY SUPERVISOR FILTER ASSEMBLY, VALERIE S 722.10 Displacement Of Lumbar Intervertebral Disc Without Myelopathy 05/21/2010 SALLY SUPERVISOR FILTER ASSEMBLY, VALERIE S V72.31 Charging Operator Exam, Routine 05/21/2010 YATES DO, KARO K 627.9 Menopausal And Postmenopausal Disorder Unspecified 05/21/2010 YATES DO, KARO K 722.10 Displacement Of Lumbar Intervertebral Disc Without Myelopathy 05/21/2010 YATES DO, KARO K V72.31 Charging Operator Exam, Routine 05/21/2010 SALLY SUPERVISOR FILTER ASSEMBLY, VALERIE S 627.9 Menopausal And Postmenopausal Disorder Unspecified 05/21/2010 SALLY SUPERVISOR FILTER ASSEMBLY, VALERIE S 722.10 Displacement Of Lumbar Intervertebral Disc Without Myelopathy 05/21/2010 SALLY SUPERVISOR FILTER ASSEMBLY, VALERIE S V72.31 Charging Operator Exam, Routine 05/21/2010 SALLY SUPERVISOR FILTER ASSEMBLY, VALERIE S 627.9 Menopausal And Postmenopausal Disorder Unspecified 05/21/2010 SALLY SUPERVISOR FILTER ASSEMBLY, VALERIE S 722.10 Displacement Of Lumbar Intervertebral Disc Without Myelopathy 05/21/2010 SALLY SUPERVISOR FILTER ASSEMBLY, VALERIE S V72.31 Charging Operator Exam, Routine 05/21/2010 SALLY SUPERVISOR FILTER ASSEMBLY, VALERIE S 627.9 Menopausal And Postmenopausal Disorder Unspecified 05/21/2010 SALLY SUPERVISOR FILTER ASSEMBLY, VALERIE S 722.10 Displacement Of Lumbar Intervertebral Disc Without Myelopathy 05/21/2010 SALLY SUPERVISOR FILTER ASSEMBLY, VALERIE S V72.31 Charging Operator Exam, Routine 05/21/2010 SALLY SUPERVISOR FILTER ASSEMBLY, VALERIE S 627.9 Menopausal And Postmenopausal Disorder Unspecified 05/21/2010 SALLY SUPERVISOR FILTER ASSEMBLY, VALERIE S 722.10 Displacement Of Lumbar Intervertebral Disc Without Myelopathy 05/21/2010 SALLY SUPERVISOR FILTER ASSEMBLY, VALERIE S V72.31 Charging Operator Exam, Routine 05/21/2010 SALLY SUPERVISOR FILTER ASSEMBLY, VALERIE S 627.9 Menopausal And Postmenopausal Disorder Unspecified 05/21/2010 SALLY SUPERVISOR FILTER ASSEMBLY, VALERIE S 722.10 Displacement Of Lumbar Intervertebral Disc Without Myelopathy 05/21/2010 SALLY SUPERVISOR FILTER ASSEMBLY, VALERIE S V72.31 Charging Operator Exam, Routine 05/21/2010 SALLY SUPERVISOR FILTER ASSEMBLY, VALERIE S 627.9 Menopausal And Postmenopausal Disorder Unspecified 05/21/2010 SALLY SUPERVISOR FILTER ASSEMBLY, VALERIE S 722.10 Displacement Of Lumbar Intervertebral Disc Without Myelopathy 05/21/2010 SALLY SUPERVISOR FILTER ASSEMBLY, VALERIE S V72.31 Charging Operator Exam, Routine 05/21/2010 SALLY SUPERVISOR FILTER ASSEMBLY, VALERIE S 627.9 Menopausal And Postmenopausal Disorder Unspecified 05/21/2010 SALLY SUPERVISOR FILTER ASSEMBLY, VALERIE S 722.10 Displacement Of Lumbar Intervertebral Disc Without Myelopathy 05/21/2010 SALLY SUPERVISOR FILTER ASSEMBLY, VALERIE S V72.31 Charging Operator Exam, Routine 05/21/2010 KARO YATES DO K 627.9 Menopausal And Postmenopausal Disorder Unspecified 05/21/2010 YATES DO, KARO K 722.10 Displacement Of Lumbar Intervertebral Disc Without Myelopathy 05/21/2010 YATES DO, KARO K V72.31 Charging Operator Exam, Routine 05/21/2010 SALLY SUPERVISOR FILTER ASSEMBLY, VALERIE S 627.9 Menopausal And Postmenopausal Disorder Unspecified 05/21/2010 SALLY SUPERVISOR FILTER ASSEMBLY, VALERIE S 722.10 Displacement Of Lumbar Intervertebral Disc Without Myelopathy 05/21/2010 SALLY SUPERVISOR FILTER ASSEMBLY, VALERIE S V72.31 Charging Operator Exam, Routine 05/21/2010 YATES DO, KARO K 627.9 Menopausal And Postmenopausal Disorder Unspecified 05/21/2010 YATES DO, KARO K 722.10 Displacement Of Lumbar Intervertebral Disc Without Myelopathy 05/21/2010 YATES DO, KARO K V72.31 Charging Operator Exam, Routine 05/21/2010 SALLY SUPERVISOR FILTER ASSEMBLY, VALERIE S 627.9 Menopausal And Postmenopausal Disorder Unspecified 05/21/2010 SALLY SUPERVISOR FILTER ASSEMBLY, VALERIE S 722.10 Displacement Of Lumbar Intervertebral Disc Without Myelopathy 05/21/2010 SALLY SUPERVISOR FILTER ASSEMBLY, VALERIE S V72.31 Charging Operator Exam, Routine 05/21/2010 SALLY SUPERVISOR FILTER ASSEMBLY, VALERIE S 627.9 Menopausal And Postmenopausal Disorder Unspecified 05/21/2010 SALLY SUPERVISOR FILTER ASSEMBLY, VALERIE S 722.10 Displacement Of Lumbar Intervertebral Disc Without Myelopathy 05/21/2010 SALLY SUPERVISOR FILTER ASSEMBLY, VALERIE S V72.31 Charging Operator Exam, Routine 05/21/2010 SALLY SUPERVISOR FILTER ASSEMBLY, VALERIE S 627.9 Menopausal And Postmenopausal Disorder Unspecified 05/21/2010 SALLY SUPERVISOR FILTER ASSEMBLY, VALERIE S 722.10 Displacement Of Lumbar Intervertebral Disc Without Myelopathy 05/21/2010 SALLY SUPERVISOR FILTER ASSEMBLY, VALERIE S V72.31 Charging Operator Exam, Routine 05/21/2010 YATES DO, KARO K 627.9 Menopausal And Postmenopausal Disorder Unspecified 05/21/2010 YATES DO, KARO K 722.10 Displacement Of Lumbar Intervertebral Disc Without Myelopathy 05/21/2010 YATES DO, KARO K V72.31 Charging Operator Exam, Routine 05/21/2010 SALLY SUPERVISOR FILTER ASSEMBLY, VALERIE S 627.9 Menopausal And Postmenopausal Disorder Unspecified 05/21/2010 VALERIE ZAVALA APRN S 722.10 Displacement Of Lumbar Intervertebral Disc Without Myelopathy 05/21/2010 ADRIAN ZAVALA APRNA S V72.31 Charging Operator Exam, Routine 06/23/2010 MILAN RAMIREZ KARO K V68.1 Issue Of Repeat Prescriptions 06/23/2010 YATES DO KARO K V68.1 Issue Of Repeat Prescriptions 06/23/2010 ZORAIDA ESPAÑA APRN V68.1 Issue Of Repeat Prescriptions 06/23/2010 V68.1 Issue Of Repeat Prescriptions 06/23/2010 ADRIAN ZAVALA APRNA S V68.1 Issue Of Repeat Prescriptions 06/23/2010 MILAN DO KARO K V68.1 Issue Of Repeat Prescriptions 06/23/2010 ADRIAN ZAVALA APRNA S V68.1 Issue Of Repeat Prescriptions 06/23/2010 ADRIAN ZAVALA APRNA S V68.1 Issue Of Repeat Prescriptions 06/23/2010 HALEY YATES DOA K V68.1 Issue Of Repeat Prescriptions 06/23/2010 V68.1 Issue Of Repeat Prescriptions 06/23/2010 V68.1 Issue Of Repeat Prescriptions 06/23/2010 V68.1 Issue Of Repeat Prescriptions 06/23/2010 MICHELLE CAMARGO MD V68.1 Issue Of Repeat Prescriptions 06/23/2010 ADRIAN ZAVALA APRNA S V68.1 Issue Of Repeat Prescriptions 06/23/2010 ADRIAN ZAVALA APRNA S V68.1 Issue Of Repeat Prescriptions 06/23/2010 HALEY YATES DOA K V68.1 Issue Of Repeat Prescriptions 06/23/2010 ADRIAN ZAVALA APRNA S V68.1 Issue Of Repeat Prescriptions 06/23/2010 HALEY YATES DOA K V68.1 Issue Of Repeat Prescriptions 06/23/2010 SERINA ZAVALA APRNNDA S V68.1 Issue Of Repeat Prescriptions 06/23/2010 SERINA ZAVALA APRNNDA S V68.1 Issue Of Repeat Prescriptions 06/23/2010 SERINA ZAVALA APRNNDA S V68.1 Issue Of Repeat Prescriptions 06/23/2010 SERINA ZAVALA APRNNDA S V68.1 Issue Of Repeat Prescriptions 06/23/2010 SERINA ZAVALA APRNNDA S V68.1 Issue Of Repeat Prescriptions 06/23/2010 VALERIE ZAVALA APRN S V68.1 Issue Of Repeat Prescriptions 06/23/2010 VALERIE ZAVALA APRN S V68.1 Issue Of Repeat Prescriptions 06/23/2010 KARO YATES DO V68.1 Issue Of Repeat Prescriptions 06/23/2010 VALERIE ZAVALA APRN S V68.1 Issue Of Repeat Prescriptions 06/23/2010 KAOR YATES DO V68.1 Issue Of Repeat Prescriptions [...] Other Slipping Tripping Or Stumbling 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, VALERIE S 719.46 Knee Pain 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SERINAVLAERIE S E885.9 Accidental Fall From Other Slipping Tripping Or Stumbling 10/13/2010 YATES DOHALEYA K 719.46 Knee Pain 10/13/2010 YATES DO KARO K E885.9 Accidental Fall From Other Slipping Tripping Or Stumbling 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 VALERIE S 719.46 Knee Pain 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SERINAVALERIE S E885.9 Accidental Fall From Other Slipping Tripping Or Stumbling 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, VALERIE S 719.46 Knee Pain 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, VALERIE S E885.9 Accidental Fall From Other Slipping Tripping Or Stumbling 10/13/2010 KARO YATES DO K 719.46 Knee Pain 10/13/2010 KARO YATES DO K E885.9 Accidental Fall From Other Slipping [...] Other Slipping Tripping Or Stumbling 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, VALERIE S 719.46 Knee Pain 10/13/2010 SERINA ZAVALA APRNNDA S E885.9 Accidental Fall From Other Slipping Tripping Or Stumbling 10/13/2010 YATES DO, KARO K 719.46 Knee Pain 10/13/2010 YATES DO, KARO K E885.9 Accidental Fall From Other Slipping Tripping Or Stumbling 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, VALERIE S 719.46 Knee Pain 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, VALERIE S E885.9 Accidental Fall From Other Slipping Tripping Or Stumbling 10/13/2010 YATES DO, KARO K 719.46 Knee Pain 10/13/2010 YATES DO, KARO K E885.9 Accidental Fall From Other Slipping Tripping Or Stumbling 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, VALERIE S 719.46 Knee Pain 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, VALERIE S E885.9 Accidental Fall From Other Slipping Tripping Or Stumbling 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, VALERIE S 719.46 Knee Pain 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, VALERIE S E885.9 Accidental Fall From Other Slipping Tripping Or Stumbling 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, VALERIE S 719.46 Knee Pain 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, VALERIE S E885.9 Accidental Fall From Other Slipping Tripping Or Stumbling 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, VALERIE S 719.46 Knee Pain 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, VALERIE S E885.9 Accidental Fall From Other Slipping Tripping Or Stumbling 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, VALERIE S 719.46 Knee Pain 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, VALERIE S E885.9 Accidental Fall From Other Slipping Tripping Or Stumbling 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, VALERIE S 719.46 Knee Pain 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, VALERIE S E885.9 Accidental Fall From Other Slipping Tripping Or Stumbling 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, 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 S 719.46 Knee Pain 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, 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 S E885.9 Accidental Fall From Other Slipping Tripping Or Stumbling 10/13/2010 YATES DO, KARO K 719.46 Knee Pain 10/13/2010 YATES DO, KARO K E885.9 Accidental Fall From Other Slipping Tripping Or Stumbling 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 VALERIE S 719.46 Knee Pain 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 VALERIE S E885.9 Accidental Fall From Other Slipping Tripping Or Stumbling 10/13/2010 YATES DO KARO K 719.46 Knee Pain 10/13/2010 YATES DO KARO K E885.9 Accidental Fall From Other Slipping Tripping Or Stumbling 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 VALERIE S 719.46 Knee Pain 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 VALERIE S E885.9 Accidental Fall From Other Slipping Tripping Or Stumbling 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 VALERIE S 719.46 Knee Pain 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 VALERIE S E885.9 Accidental Fall From Other Slipping Tripping Or Stumbling 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 VALERIE S 719.46 Knee Pain 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 VALERIE S E885.9 Accidental Fall From Other Slipping Tripping Or Stumbling 10/13/2010 YATES DO KARO K 719.46 Knee Pain 10/13/2010 YATES DO KARO K E885.9 Accidental Fall From Other Slipping Tripping Or Stumbling 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 VALERIE S 719.46 Knee Pain 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 VALERIE S E885.9 Accidental Fall From Other Slipping Tripping Or Stumbling 11/07/2010 Ot 722.52 LUMB/ LUMBOSAC DISC DEGEN 11/07/2010 Ot 724.2 LUMBAGO 11/11/2010 YATES DO KARO K 401.1 HYPERTENSION, BENIGN ESSENTIAL 11/11/2010 YATES DO KARO K 401.1 HYPERTENSION, BENIGN ESSENTIAL 11/11/2010 ZORAIDA ESPAÑA APRN 401.1 HYPERTENSION, BENIGN ESSENTIAL 11/11/2010 401.1 HYPERTENSION, BENIGN ESSENTIAL 11/11/2010 SALLY SUPERVISOR FILTER ASSEMBLY, VALERIE S 401.1 HYPERTENSION, BENIGN ESSENTIAL 11/11/2010 YATES DO, KARO K 401.1 HYPERTENSION, BENIGN ESSENTIAL 11/11/2010 SALLY SUPERVISOR FILTER ASSEMBLY, VALERIE S 401.1 HYPERTENSION, BENIGN ESSENTIAL 11/11/2010 SALLY SUPERVISOR FILTER ASSEMBLY, VALERIE S 401.1 HYPERTENSION, BENIGN ESSENTIAL 11/11/2010 YATES DO, KARO K 401.1 HYPERTENSION, BENIGN ESSENTIAL 11/11/2010 401.1 HYPERTENSION, BENIGN ESSENTIAL 11/11/2010 401.1 HYPERTENSION, BENIGN ESSENTIAL 11/11/2010 401.1 HYPERTENSION, BENIGN ESSENTIAL 11/11/2010 MARY JO ABRAMS, MICHELLE 401.1 HYPERTENSION, BENIGN ESSENTIAL 11/11/2010 SALLY SUPERVISOR FILTER ASSEMBLY, VALERIE S 401.1 HYPERTENSION, BENIGN ESSENTIAL 11/11/2010 SALLY SUPERVISOR FILTER ASSEMBLY, VALERIE S 401.1 HYPERTENSION, BENIGN ESSENTIAL 11/11/2010 YATES DO, KARO K 401.1 HYPERTENSION, BENIGN ESSENTIAL 11/11/2010 SALLY SUPERVISOR FILTER ASSEMBLY, VALERIE S 401.1 HYPERTENSION, BENIGN ESSENTIAL 11/11/2010 YATES DO, KARO K 401.1 HYPERTENSION, BENIGN ESSENTIAL 11/11/2010 SALLY SUPERVISOR FILTER ASSEMBLY, VALERIE S 401.1 HYPERTENSION, BENIGN ESSENTIAL 11/11/2010 SALLY SUPERVISOR FILTER ASSEMBLY, VALERIE S 401.1 HYPERTENSION, BENIGN ESSENTIAL 11/11/2010 SALLY SUPERVISOR FILTER ASSEMBLY, VALERIE S 401.1 HYPERTENSION, BENIGN ESSENTIAL 11/11/2010 SALLY SUPERVISOR FILTER ASSEMBLY, VALERIE S 401.1 HYPERTENSION, BENIGN ESSENTIAL 11/11/2010 SALLY SUPERVISOR FILTER ASSEMBLY, VALERIE S 401.1 HYPERTENSION, BENIGN ESSENTIAL 11/11/2010 SALLY SUPERVISOR FILTER ASSEMBLY, VALERIE S 401.1 HYPERTENSION, BENIGN ESSENTIAL 11/11/2010 SALLY SUPERVISOR FILTER ASSEMBLY, VALERIE S 401.1 HYPERTENSION, BENIGN ESSENTIAL 11/11/2010 YATES DO, KARO K 401.1 HYPERTENSION, BENIGN ESSENTIAL 11/11/2010 SALLY SUPERVISOR FILTER ASSEMBLY, VALERIE S 401.1 HYPERTENSION, BENIGN ESSENTIAL 11/11/2010 YATES DO, KARO K 401.1 HYPERTENSION, BENIGN ESSENTIAL 11/11/2010 SLALY SUPERVISOR FILTER ASSEMBLY, VALERIE S 401.1 HYPERTENSION, BENIGN ESSENTIAL 11/11/2010 SALLY SUPERVISOR FILTER ASSEMBLY, VALERIE S 401.1 HYPERTENSION, BENIGN ESSENTIAL 11/11/2010 [...] OTHER SPECIFIED SITE 03/01/2011 Ot V58.69 OTH MED,LT, CURRENT USE 03/09/2011 KARO YATES DO V04.81 Flu [...] And Above, Im) 03/09/2011 VALERIE ZAVALA APRN V04.81 Flu Dx (3 Yrs And [...] And Above, Im) 03/09/2011 VALERIE ZAVALA APRN V04.81 Flu Dx (3 Yrs And Above, Im) 03/09/2011 SALLY SUPERVISOR FILTER ASSEMBLY, VALERIE S V04.81 Flu Dx (3 Yrs And Above, Im) 03/09/2011 YATES DO, KARO K V04.81 Flu Dx (3 Yrs And Above, Im) 03/09/2011 SALLY SUPERVISOR FILTER ASSEMBLY, VALERIE S V04.81 Flu Dx (3 Yrs And Above, Im) 03/09/2011 YATES DO, KARO K V04.81 Flu Dx (3 Yrs And Above, Im) 03/09/2011 SALLY SUPERVISOR FILTER ASSEMBLY, VALERIE S V04.81 Flu Dx (3 Yrs And Above, Im) 03/09/2011 SALLY SUPERVISOR FILTER ASSEMBLY, VALERIE S V04.81 Flu Dx (3 Yrs And Above, Im) 03/09/2011 SALLY SUPERVISOR FILTER ASSEMBLY, VALERIE S V04.81 Flu Dx (3 Yrs And Above, Im) 03/09/2011 SALLY SUPERVISOR FILTER ASSEMBLY, VALERIE S V04.81 Flu Dx (3 Yrs And Above, Im) 03/09/2011 SALLY SUPERVISOR FILTER ASSEMBLY, VALERIE S V04.81 Flu Dx (3 Yrs And Above, Im) 03/09/2011 SALLY SUPERVISOR FILTER ASSEMBLY, VALERIE S V04.81 Flu Dx (3 Yrs And Above, Im) 03/09/2011 SALLY SUPERVISOR FILTER ASSEMBLY, VALERIE S V04.81 Flu Dx (3 Yrs And Above, Im) 03/09/2011 YATES DO, KARO K V04.81 Flu Dx (3 Yrs And Above, Im) 03/09/2011 SALLY SUPERVISOR FILTER ASSEMBLY, VALERIE S V04.81 Flu Dx (3 Yrs And Above, Im) 03/09/2011 YATES DO, KARO K V04.81 Flu Dx (3 Yrs And Above, Im) 03/09/2011 SALLY SUPERVISOR FILTER ASSEMBLY, VALERIE S V04.81 Flu Dx (3 Yrs And Above, Im) 03/09/2011 SALLY SUPERVISOR FILTER ASSEMBLY, VALERIE S V04.81 Flu Dx (3 Yrs And Above, Im) 03/09/2011 SALLY SUPERVISOR FILTER ASSEMBLY, VALERIE S V04.81 Flu Dx (3 Yrs And Above, Im) 03/09/2011 YATES DO, KARO K V04.81 Flu Dx (3 Yrs And Above, Im) 03/09/2011 SALLY SUPERVISOR FILTER ASSEMBLY, VALERIE S V04.81 Flu Dx (3 Yrs And Above, Im) 03/14/2011 YATES DO, KARO K 625.9 Pelvic Pain 03/14/2011 YATES DO, KARO K 791.0 Proteinuria 03/14/2011 YATES DO, KARO K 625.9 Pelvic Pain 03/14/2011 YATES DO, KARO K 791.0 Proteinuria 03/14/2011 ESPAÑA SUPERVISOR FILTER ASSEMBLY, ZORAIDA R 625.9 Pelvic Pain 03/14/2011 ESPAÑA SUPERVISOR FILTER ASSEMBLY, ZORAIDA R 791.0 Proteinuria 03/14/2011 625.9 Pelvic Pain 03/14/2011 791.0 Proteinuria 03/14/2011 SALLY SUPERVISOR FILTER ASSEMBLY, VALERIE S 625.9 Pelvic Pain 03/14/2011 SALLY SUPERVISOR FILTER ASSEMBLY, VALERIE S 791.0 Proteinuria 03/14/2011 YATES DO, KARO K 625.9 Pelvic Pain 03/14/2011 YATES DO, KARO K 791.0 Proteinuria 03/14/2011 SALLY SUPERVISOR FILTER ASSEMBLY, VALERIE S 625.9 Pelvic Pain 03/14/2011 SALLY SUPERVISOR FILTER ASSEMBLY, VALERIE S 791.0 Proteinuria 03/14/2011 SALLY SUPERVISOR FILTER ASSEMBLY, VALERIE S 625.9 Pelvic Pain 03/14/2011 SALLY SUPERVISOR FILTER ASSEMBLY, VALERIE S 791.0 Proteinuria 03/14/2011 YATES DO, KARO K 625.9 Pelvic Pain 03/14/2011 YATES DO, KARO K 791.0 Proteinuria 03/14/2011 625.9 Pelvic Pain 03/14/2011 791.0 Proteinuria 03/14/2011 625.9 Pelvic Pain 03/14/2011 791.0 Proteinuria 03/14/2011 625.9 Pelvic Pain 03/14/2011 791.0 Proteinuria 03/14/2011 MICHELLE CAMARGO MD 625.9 Pelvic Pain 03/14/2011 MICHELLE CAMARGO MD 791.0 Proteinuria 03/14/2011 SALLY SUPERVISOR FILTER ASSEMBLY, VALERIE S 625.9 Pelvic Pain 03/14/2011 SALLY SUPERVISOR FILTER ASSEMBLY, VALERIE S 791.0 Proteinuria 03/14/2011 SALLY SUPERVISOR FILTER ASSEMBLY, VALERIE S 625.9 Pelvic Pain 03/14/2011 SALLY SUPERVISOR FILTER ASSEMBLY, VALERIE S 791.0 Proteinuria 03/14/2011 YATES DO, KARO K 625.9 Pelvic Pain 03/14/2011 YATES DO, KARO K 791.0 Proteinuria 03/14/2011 SALLY SUPERVISOR FILTER ASSEMBLY, VALERIE S 625.9 Pelvic Pain 03/14/2011 SALLY SUPERVISOR FILTER ASSEMBLY, VALERIE S 791.0 Proteinuria 03/14/2011 YATES DO, KARO K 625.9 Pelvic Pain 03/14/2011 YATES DO, KARO K 791.0 Proteinuria 03/14/2011 SALLY SUPERVISOR FILTER ASSEMBLY, VALERIE S 625.9 Pelvic Pain 03/14/2011 SALLY SUPERVISOR FILTER ASSEMBLY, VALERIE S 791.0 Proteinuria 03/14/2011 SALLY SUPERVISOR FILTER ASSEMBLY, VALERIE S 625.9 Pelvic Pain 03/14/2011 SALLY SUPERVISOR FILTER ASSEMBLY, VALERIE S 791.0 Proteinuria 03/14/2011 SALLY SUPERVISOR FILTER ASSEMBLY, VALERIE S 625.9 Pelvic Pain 03/14/2011 SALLY SUPERVISOR FILTER ASSEMBLY, VALERIE S 791.0 Proteinuria 03/14/2011 SALLY SUPERVISOR FILTER ASSEMBLY, VALERIE S 625.9 Pelvic Pain 03/14/2011 SALLY SUPERVISOR FILTER ASSEMBLY, VALERIE S 791.0 Proteinuria 03/14/2011 SALLY SUPERVISOR FILTER ASSEMBLY, VALERIE S 625.9 Pelvic Pain 03/14/2011 SALLY SUPERVISOR FILTER ASSEMBLY, VALERIE S 791.0 Proteinuria 03/14/2011 SALLY SUPERVISOR FILTER ASSEMBLY, VALERIE S 625.9 Pelvic Pain 03/14/2011 SALLY SUPERVISOR FILTER ASSEMBLY, VALERIE S 791.0 Proteinuria 03/14/2011 SALLY SUPERVISOR FILTER ASSEMBLY, VALERIE S 625.9 Pelvic Pain 03/14/2011 SALLY SUPERVISOR FILTER ASSEMBLY, VALERIE S 791.0 Proteinuria 03/14/2011 YATES DO, KARO K 625.9 Pelvic Pain 03/14/2011 YATES DO, KARO K 791.0 Proteinuria 03/14/2011 SALLY SUPERVISOR FILTER ASSEMBLY, VALERIE S 625.9 Pelvic Pain 03/14/2011 SALLY SUPERVISOR FILTER ASSEMBLY, VALERIE S 791.0 Proteinuria 03/14/2011 YATES DO, KARO K 625.9 Pelvic Pain 03/14/2011 YATES DO, KARO K 791.0 Proteinuria 03/14/2011 SALLY SUPERVISOR FILTER ASSEMBLY, VALERIE S 625.9 Pelvic Pain 03/14/2011 SALLY SUPERVISOR FILTER ASSEMBLY, VALERIE S 791.0 Proteinuria 03/14/2011 SALLY SUPERVISOR FILTER ASSEMBLY, VALERIE S 625.9 Pelvic Pain 03/14/2011 SALLY SUPERVISOR FILTER ASSEMBLY, VALERIE S 791.0 Proteinuria 03/14/2011 SALLY SUPERVISOR FILTER ASSEMBLY, VALERIE S 625.9 Pelvic Pain 03/14/2011 SALLY SUPERVISOR FILTER ASSEMBLY, VALERIE S 791.0 Proteinuria 03/14/2011 YATES DO, KARO K 625.9 Pelvic Pain 03/14/2011 YATES DO, KARO K 791.0 Proteinuria 03/14/2011 SALLY SUPERVISOR FILTER ASSEMBLY, VALERIE S 625.9 Pelvic Pain 03/14/2011 SALLY SUPERVISOR FILTER ASSEMBLY, VALERIE S 791.0 Proteinuria 04/26/2011 Ot 614.6 FEM PELVIC PERITON ADH-POST-OP/INF 05/20/2011 MILAN RAMIREZ KARO K 300.02 AN GEN ANXIETY 05/20/2011 HALEY YATES DOA K 789.07 ABDOMINAL PAIN GENERALIZED 05/20/2011 MILAN RAMIREZ KARO K 300.02 AN GEN ANXIETY 05/20/2011 YATES DO KARO K 789.07 ABDOMINAL PAIN GENERALIZED 05/20/2011 ALEXY ESPAÑA APRNIA R 300.02 AN GEN ANXIETY 05/20/2011 ALEXY ESPAÑA APRNIA R 789.07 ABDOMINAL PAIN GENERALIZED 05/20/2011 300.02 AN GEN ANXIETY 05/20/2011 789.07 ABDOMINAL PAIN GENERALIZED 05/20/2011 ADRIAN ZAVALA APRNA S 300.02 AN GEN ANXIETY 05/20/2011 SERINA ZAVALA APRNNDA S 789.07 ABDOMINAL PAIN GENERALIZED 05/20/2011 MILAN RAMIREZ KARO K 300.02 AN GEN ANXIETY 05/20/2011 YATES DO KARO K 789.07 ABDOMINAL PAIN GENERALIZED 05/20/2011 SERINA ZAVALA APRNNDA S 300.02 AN GEN ANXIETY 05/20/2011 SALLY RIVERA VALERIE S 789.07 ABDOMINAL PAIN GENERALIZED 05/20/2011 SALLY SUPERVISOR FILTER ASSEMBLY, VALERIE S 300.02 AN GEN ANXIETY 05/20/2011 SERINA [...] APRNA S 789.07 ABDOMINAL PAIN GENERALIZED 05/20/2011 YATES [...] S 300.02 AN GEN ANXIETY 05/20/2011 SALLY SUPERVISOR FILTER ASSEMBLY, VALERIE S 789.07 ABDOMINAL PAIN GENERALIZED 05/20/2011 SALLY SUPERVISOR FILTER ASSEMBLY, VALERIE S 300.02 AN GEN ANXIETY 05/20/2011 SALLY SUPERVISOR FILTER ASSEMBLY, VALERIE S 789.07 ABDOMINAL PAIN GENERALIZED 05/20/2011 SALLY SUPERVISOR FILTER ASSEMBLY, VALERIE S 300.02 AN GEN ANXIETY 05/20/2011 SALLY SUPERVISOR FILTER ASSEMBLY, VALERIE S 789.07 ABDOMINAL PAIN GENERALIZED 05/20/2011 SALLY PERSAUDN VALERIE S 300.02 AN GEN ANXIETY 05/20/2011 SALLY SUPERVISOR FILTER ASSEMBLY, VALERIE S 789.07 ABDOMINAL PAIN GENERALIZED 05/20/2011 YATES DO, KARO K 300.02 AN GEN ANXIETY 05/20/2011 YATES DO, KARO K 789.07 ABDOMINAL PAIN GENERALIZED 05/20/2011 SALLY PERSAUDN VALERIE S 300.02 AN GEN ANXIETY 05/20/2011 SALLY SUPERVISOR FILTER ASSEMBLY VALERIE S 789.07 ABDOMINAL PAIN GENERALIZED 05/20/2011 YATES DO, AKRO K 300.02 AN GEN ANXIETY 05/20/2011 YATES DO, KARO K 789.07 ABDOMINAL PAIN GENERALIZED 05/20/2011 SALLY PERSAUDN, VALERIE S 300.02 AN GEN ANXIETY 05/20/2011 SALLYMARTY PERSAUDN, VALERIE S 789.07 ABDOMINAL PAIN GENERALIZED 05/20/2011 SALLYMARTY PERSAUDN VALERIE S 300.02 AN GEN ANXIETY 05/20/2011 SALLY SUPERVISOR FILTER ASSEMBLY VALERIE S 789.07 ABDOMINAL PAIN GENERALIZED 05/20/2011 SALLY SUPERVISOR FILTER ASSEMBLY VALERIE S 300.02 AN GEN ANXIETY 05/20/2011 SALLY PERSAUDN VALERIE S 789.07 ABDOMINAL PAIN GENERALIZED 05/20/2011 YATES DO, KARO K 300.02 AN GEN ANXIETY 05/20/2011 YATES DO, KARO K 789.07 ABDOMINAL PAIN GENERALIZED 05/20/2011 SALLY PERSAUDN VALERIE S 300.02 AN GEN ANXIETY 05/20/2011 SALLY SUPERVISOR FILTER ASSEMBLY, VALERIE S 789.07 ABDOMINAL PAIN GENERALIZED 06/09/2011 YATES DO, KARO K 796.2 Elevated Blood Pressure Reading Without Diagnosis Of Hypertension 06/09/2011 YATES DO, KARO K 796.2 Elevated Blood Pressure Reading Without Diagnosis Of Hypertension 06/09/2011 TACO RIVERA ZORAIAD R 796.2 Elevated Blood Pressure Reading Without Diagnosis Of Hypertension 06/09/2011 796.2 Elevated Blood Pressure Reading Without Diagnosis Of Hypertension 06/09/2011 SALLY SUPERVISOR FILTER ASSEMBLY, VALERIE S 796.2 Elevated Blood Pressure Reading Without Diagnosis Of Hypertension 06/09/2011 YATES DO KARO K 796.2 Elevated Blood Pressure Reading Without Diagnosis Of Hypertension 06/09/2011 SALLY SUPERVISOR FILTER ASSEMBLY, VALERIE S 796.2 Elevated Blood Pressure Reading Without Diagnosis Of Hypertension 06/09/2011 SALLY SUPERVISOR FILTER ASSEMBLY, VALERIE S 796.2 Elevated Blood Pressure Reading [...] Reading Without Diagnosis Of Hypertension 06/09/2011 SALLY SUPERVISOR FILTER ASSEMBLY, VALERIE S 796.2 Elevated Blood Pressure Reading Without Diagnosis Of Hypertension 06/09/2011 SALLY SUPERVISOR FILTER ASSEMBLY, VALERIE S 796.2 Elevated Blood Pressure Reading Without Diagnosis Of Hypertension 06/09/2011 YATES DO KARO K 796.2 Elevated Blood Pressure Reading Without Diagnosis Of Hypertension 06/09/2011 SALLY SUPERVISOR FILTER ASSEMBLY, VALERIE S 796.2 Elevated Blood Pressure Reading Without Diagnosis Of Hypertension 06/09/2011 MILAN RAMIREZ KARO K 796.2 Elevated Blood Pressure Reading Without Diagnosis Of Hypertension 06/09/2011 SALLY SUPERVISOR FILTER ASSEMBLY, VALERIE S 796.2 Elevated Blood Pressure Reading Without Diagnosis Of Hypertension 06/09/2011 SALLY SUPERVISOR FILTER ASSEMBLY, VALERIE S 796.2 Elevated Blood Pressure Reading Without Diagnosis Of Hypertension 06/09/2011 SALLY SUPERVISOR FILTER ASSEMBLY, VALERIE S 796.2 Elevated Blood Pressure Reading Without Diagnosis Of Hypertension 06/09/2011 SALLY SUPERVISOR FILTER ASSEMBLY, VALERIE S 796.2 Elevated Blood Pressure Reading Without Diagnosis Of Hypertension 06/09/2011 SALLY SUPERVISOR FILTER ASSEMBLY, VALERIE S 796.2 Elevated Blood Pressure Reading Without Diagnosis Of Hypertension 06/09/2011 VALERIE ZAVALA APRN S 796.2 Elevated Blood Pressure Reading Without Diagnosis Of Hypertension 06/09/2011 SERINA ZAVALA APRNNDA S 796.2 Elevated Blood Pressure Reading Without [...] 07/12/2011 338.4 CHRONIC PAIN SYNDROME 07/12/2011 SALLY SUPERVISOR FILTER ASSEMBLY, VALERIE S 338.4 CHRONIC PAIN SYNDROME 07/12/2011 YATES DO, KARO K 338.4 CHRONIC PAIN SYNDROME 07/12/2011 SALLY SUPERVISOR FILTER ASSEMBLY, VALERIE S 338.4 CHRONIC PAIN SYNDROME 07/12/2011 SALLY SUPERVISOR FILTER ASSEMBLY, VALERIE S 338.4 CHRONIC PAIN SYNDROME 07/12/2011 YATES DO, KARO K 338.4 CHRONIC PAIN SYNDROME 07/12/2011 338.4 CHRONIC PAIN SYNDROME 07/12/2011 338.4 CHRONIC PAIN SYNDROME 07/12/2011 338.4 CHRONIC PAIN SYNDROME 07/12/2011 MARY JO ABRAMS, MICHELLE 338.4 CHRONIC PAIN SYNDROME 07/12/2011 SALLY SUPERVISOR FILTER ASSEMBLY, VALERIE S 338.4 CHRONIC PAIN SYNDROME 07/12/2011 SALLY SUPERVISOR FILTER ASSEMBLY, VALERIE S 338.4 CHRONIC PAIN SYNDROME 07/12/2011 YATES DO, KARO K 338.4 CHRONIC PAIN SYNDROME 07/12/2011 SALLY SUPERVISOR FILTER ASSEMBLY, VALERIE S 338.4 CHRONIC PAIN SYNDROME 07/12/2011 YATES DO, KARO K 338.4 CHRONIC PAIN SYNDROME 07/12/2011 SALLY SUPERVISOR FILTER ASSEMBLY, VALERIE S 338.4 CHRONIC PAIN SYNDROME 07/12/2011 SALLY SUPERVISOR FILTER ASSEMBLY, VALERIE S 338.4 CHRONIC PAIN SYNDROME 07/12/2011 SALLY SUPERVISOR FILTER ASSEMBLY, VALERIE S 338.4 CHRONIC PAIN SYNDROME 07/12/2011 SALLY SUPERVISOR FILTER ASSEMBLY, VALERIE S 338.4 CHRONIC PAIN SYNDROME 07/12/2011 SALLY SUPERVISOR FILTER ASSEMBLY, VALERIE S 338.4 CHRONIC PAIN SYNDROME 07/12/2011 SALLY SUPERVISOR FILTER ASSEMBLY, VALERIE S 338.4 CHRONIC PAIN SYNDROME 07/12/2011 SALLY SUPERVISOR FILTER ASSEMBLY, VALERIE S 338.4 CHRONIC PAIN SYNDROME 07/12/2011 YATES DO, KARO K 338.4 CHRONIC PAIN SYNDROME 07/12/2011 SALLY SUPERVISOR FILTER ASSEMBLY, VALERIE S 338.4 CHRONIC PAIN SYNDROME 07/12/2011 YATES DO, KARO K 338.4 CHRONIC PAIN SYNDROME 07/12/2011 SALLY SUPERVISOR FILTER ASSEMBLY, VALERIE S 338.4 CHRONIC PAIN SYNDROME 07/12/2011 SALLY SUPERVISOR FILTER ASSEMBLY, VALERIE S 338.4 CHRONIC PAIN SYNDROME 07/12/2011 SALLY SUPERVISOR FILTER ASSEMBLY, VALERIE S 338.4 CHRONIC PAIN SYNDROME 07/12/2011 KARO YATES DO K 338.4 CHRONIC PAIN SYNDROME 07/12/2011 VALERIE ZAVALA APRN S 338.4 CHRONIC PAIN SYNDROME 09/20/2011 Ot 276.1 [...] K 735.4 HAMMER TOE (ACQUIRED) 09/23/2011 KARO YAETS DO K 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 09/23/2011 KARO YATES DO K 735.0 HALLUX VALGUS (ACQUIRED) 09/23/2011 KARO YATES DO K 735.4 HAMMER TOE (ACQUIRED) 09/23/2011 KARO YATES DO K 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 09/23/2011 TACO RIVERA ZORAIDA R 735.0 HALLUX VALGUS (ACQUIRED) 09/23/2011 CHARLEEN ESPAÑA APRNRICIA R 735.4 HAMMER TOE (ACQUIRED) 09/23/2011 TACO RIVERA ZORAIDA R 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 09/23/2011 735.0 HALLUX VALGUS (ACQUIRED) 09/23/2011 735.4 HAMMER TOE ( ACQUIRED) 09/23/2011 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 09/23/2011 VALERIE ZAVALA APRN S 735.0 HALLUX VALGUS (ACQUIRED) 09/23/2011 VALERIE ZAVALA APRN S 735.4 HAMMER TOE (ACQUIRED) 09/23/2011 VALERIE ZAVALA APRN S 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 09/23/2011 YATES DO, KARO K 735.0 HALLUX VALGUS (ACQUIRED) 09/23/2011 YATES DO, KARO K 735.4 HAMMER TOE (ACQUIRED) 09/23/2011 MILAN RAMIREZ KARO K 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 09/23/2011 SALLY SUPERVISOR FILTER ASSEMBLY, VALERIE S 735.0 HALLUX VALGUS (ACQUIRED) 09/23/2011 SALLY SUPERVISOR FILTER ASSEMBLY, VALERIE S 735.4 HAMMER TOE (ACQUIRED) 09/23/2011 SALLY SUPERVISOR FILTER ASSEMBLY, VALERIE S 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 09/23/2011 SALLY SUPERVISOR FILTER ASSEMBLY, VALERIE S 735.0 HALLUX VALGUS (ACQUIRED) 09/23/2011 SALLY RIVERA, VALERIE S 735.4 HAMMER TOE (ACQUIRED) 09/23/2011 SALLY RIVERA, VALERIE S 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 09/23/2011 HALEY YATES DOA K 735.0 HALLUX VALGUS (ACQUIRED) 09/23/2011 HALEY YATES DOA K 735.4 HAMMER TOE (ACQUIRED) 09/23/2011 HALEY YATES DOA K 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 09/23/2011 735.0 HALLUX VALGUS (ACQUIRED) 09/23/2011 735.4 HAMMER TOE ( ACQUIRED) 09/23/2011 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 09/23/2011 735.0 HALLUX VALGUS (ACQUIRED) 09/23/2011 735.4 HAMMER TOE ( ACQUIRED) 09/23/2011 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 09/23/2011 735.0 HALLUX VALGUS (ACQUIRED) 09/23/2011 735.4 HAMMER TOE ( ACQUIRED) 09/23/2011 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 09/23/2011 MICHELLE CAMARGO MD 735.0 HALLUX VALGUS (ACQUIRED) 09/23/2011 MICHELLE CAMARGO MD 735.4 HAMMER TOE (ACQUIRED) 09/23/2011 MICHELLE CAMARGO MD 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 09/23/2011 SALLY RIVREA, VALERIE S 735.0 HALLUX VALGUS (ACQUIRED) 09/23/2011 SALLY SUPERVISOR FILTER ASSEMBLY, VALERIE S 735.4 HAMMER TOE (ACQUIRED) 09/23/2011 SALLY SUPERVISOR FILTER ASSEMBLY, VALERIE S 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 09/23/2011 SALLY SUPERVISOR FILTER ASSEMBLY, VALERIE S 735.0 HALLUX VALGUS (ACQUIRED) 09/23/2011 SALLY SUPERVISOR FILTER ASSEMBLY, VALERIE S 735.4 HAMMER TOE (ACQUIRED) 09/23/2011 SALLY SUPERVISOR FILTER ASSEMBLY, VALERIE S 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 09/23/2011 YATES DO, KARO K 735.0 HALLUX VALGUS (ACQUIRED) 09/23/2011 YATES DO, KARO K 735.4 HAMMER TOE (ACQUIRED) 09/23/2011 YATES DO, KARO K 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 09/23/2011 SALLY SUPERVISOR FILTER ASSEMBLY, VALERIE S 735.0 HALLUX VALGUS (ACQUIRED) 09/23/2011 SALLY SUPERVISOR FILTER ASSEMBLY, VALERIE S 735.4 HAMMER TOE (ACQUIRED) 09/23/2011 SALLY SUPERVISOR FILTER ASSEMBLY, VALERIE S 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 09/23/2011 YATES DO, KARO K 735.0 HALLUX VALGUS (ACQUIRED) 09/23/2011 YATES DO, KARO K 735.4 HAMMER TOE (ACQUIRED) 09/23/2011 YATES DO, KARO K 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 09/23/2011 SALLY SUPERVISOR FILTER ASSEMBLY, VALERIE S 735.0 HALLUX VALGUS (ACQUIRED) 09/23/2011 SALLY SUPERVISOR FILTER ASSEMBLY, VALERIE S 735.4 HAMMER TOE (ACQUIRED) 09/23/2011 SALLY SUPERVISOR FILTER ASSEMBLY, VALERIE S 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 09/23/2011 SALLY SUPERVISOR FILTER ASSEMBLY, VALERIE S 735.0 HALLUX VALGUS (ACQUIRED) 09/23/2011 SALLY SUPERVISOR FILTER ASSEMBLY, VALERIE S 735.4 HAMMER TOE (ACQUIRED) 09/23/2011 SALLY SUPERVISOR FILTER ASSEMBLY, VALERIE S 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 09/23/2011 SALLY SUPERVISOR FILTER ASSEMBLY, VALERIE S 735.0 HALLUX VALGUS (ACQUIRED) 09/23/2011 SALLY SUPERVISOR FILTER ASSEMBLY, VALERIE S 735.4 HAMMER TOE (ACQUIRED) 09/23/2011 SALLY SUPERVISOR FILTER ASSEMBLY, VALERIE S 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 09/23/2011 SALLY SUPERVISOR FILTER ASSEMBLY, VALERIE S 735.0 HALLUX VALGUS (ACQUIRED) 09/23/2011 SALLY SUPERVISOR FILTER ASSEMBLY, VALERIE S 735.4 HAMMER TOE (ACQUIRED) 09/23/2011 SALLY SUPERVISOR FILTER ASSEMBLY, VALERIE S 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 09/23/2011 SALLY SUPERVISOR FILTER ASSEMBLY, VALERIE S 735.0 HALLUX VALGUS (ACQUIRED) 09/23/2011 SALLY SUPERVISOR FILTER ASSEMBLY, VALERIE S 735.4 HAMMER TOE (ACQUIRED) 09/23/2011 SALLY SUPERVISOR FILTER ASSEMBLY, VALERIE S 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 09/23/2011 SALLY SUPERVISOR FILTER ASSEMBLY, VALERIE S 735.0 HALLUX VALGUS (ACQUIRED) 09/23/2011 SALLY SUPERVISOR FILTER ASSEMBLY, VALERIE S 735.4 HAMMER TOE (ACQUIRED) 09/23/2011 SALLY SUPERVISOR FILTER ASSEMBLY, VALERIE S 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 09/23/2011 SALLY SUPERVISOR FILTER ASSEMBLY, VALERIE S 735.0 HALLUX VALGUS (ACQUIRED) 09/23/2011 SALLY SUPERVISOR FILTER ASSEMBLY, VALERIE S 735.4 HAMMER TOE (ACQUIRED) 09/23/2011 SALLY SUPERVISOR FILTER ASSEMBLY, VALERIE S 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 09/23/2011 YATES DO, KARO K 735.0 HALLUX VALGUS (ACQUIRED) 09/23/2011 YATES DO, KARO K 735.4 HAMMER TOE (ACQUIRED) 09/23/2011 YATES DO, KARO K 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 09/23/2011 SALLY SUPERVISOR FILTER ASSEMBLY, VALERIE S 735.0 HALLUX VALGUS (ACQUIRED) 09/23/2011 SALLY SUPERVISOR FILTER ASSEMBLY, VALERIE S 735.4 HAMMER TOE (ACQUIRED) 09/23/2011 SALLY SUPERVISOR FILTER ASSEMBLY, VALERIE S 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 09/23/2011 YATES DO, KARO K 735.0 HALLUX VALGUS (ACQUIRED) 09/23/2011 YATES DO, KARO K 735.4 HAMMER TOE (ACQUIRED) 09/23/2011 YATES DO, KARO K 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 09/23/2011 SALLY SUPERVISOR FILTER ASSEMBLY, VALERIE S 735.0 HALLUX VALGUS (ACQUIRED) 09/23/2011 SALLY SUPERVISOR FILTER ASSEMBLY, VALERIE S 735.4 HAMMER TOE (ACQUIRED) 09/23/2011 SALLY SUPERVISOR FILTER ASSEMBLY, VALERIE S 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 09/23/2011 SALLY SUPERVISOR FILTER ASSEMBLY, VALERIE S 735.0 HALLUX VALGUS (ACQUIRED) 09/23/2011 SALLY SUPERVISOR FILTER ASSEMBLY, VALERIE S 735.4 HAMMER TOE (ACQUIRED) 09/23/2011 SALLY SUPERVISOR FILTER ASSEMBLY, VALERIE S 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 09/23/2011 SALLY SUPERVISOR FILTER ASSEMBLY, VALERIE S 735.0 HALLUX VALGUS (ACQUIRED) 09/23/2011 SALLY SUPERVISOR FILTER ASSEMBLY, VALERIE S 735.4 HAMMER TOE (ACQUIRED) 09/23/2011 SALLY SUPERVISOR FILTER ASSEMBLY, VALERIE S 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 09/23/2011 YATES DO, KARO K 735.0 HALLUX VALGUS (ACQUIRED) 09/23/2011 YATES DO, KARO K 735.4 HAMMER TOE (ACQUIRED) 09/23/2011 YATES DO, KARO K 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 09/23/2011 SALLY SUPERVISOR FILTER ASSEMBLY, VALERIE S 735.0 HALLUX VALGUS (ACQUIRED) 09/23/2011 SALLY SUPERVISOR FILTER ASSEMBLY, VALERIE S 735.4 HAMMER TOE (ACQUIRED) 09/23/2011 SALLY SUPERVISOR FILTER ASSEMBLY, VALERIE S 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 11/18/2011 YATES DO, KARO K 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 11/18/2011 YATES DO, KARO K 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 11/18/2011 ZORAIDA ESPAÑA APRN R 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 11/18/2011 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 11/18/2011 SALLY SUPERVISOR FILTER ASSEMBLY, VALERIE S 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 11/18/2011 YATES DO, KARO K 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 11/18/2011 SALLY SUPERVISOR FILTER ASSEMBLY, VALERIE S 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 11/18/2011 SALLY SUPERVISOR FILTER ASSEMBLY, VALERIE S 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 11/18/2011 YATES DO, KARO K 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 11/18/2011 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 11/18/2011 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 11/18/2011 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 11/18/2011 MICHELLE CAMARGO MD 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 11/18/2011 SALLY SUPERVISOR FILTER ASSEMBLY, VALERIE S 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 11/18/2011 SALLY SUPERVISOR FILTER ASSEMBLY, VALERIE S 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 11/18/2011 YATES DO, KARO K 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 11/18/2011 SALLY SUPERVISOR FILTER ASSEMBLY, VALERIE S 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 11/18/2011 YATES DO, KARO K 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 11/18/2011 SALLY SUPERVISOR FILTER ASSEMBLY, VALERIE S 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 11/18/2011 SALLY SUPERVISOR FILTER ASSEMBLY, VALERIE S 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 11/18/2011 SALLY SUPERVISOR FILTER ASSEMBLY, VALERIE S 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 11/18/2011 SALLY SUPERVISOR FILTER ASSEMBLY, VALERIE S 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 11/18/2011 SALLY SUPERVISOR FILTER ASSEMBLY, VALERIE S 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 11/18/2011 SALLY SUPERVISOR FILTER ASSEMBLY, VALERIE S 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 11/18/2011 SALLY SUPERVISOR FILTER ASSEMBLY, VALERIE S 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 11/18/2011 YATES DO, KARO K 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 11/18/2011 SALLY SUPERVISOR FILTER ASSEMBLY, VALERIE S 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 11/18/2011 YATES DO, KARO K 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 11/18/2011 SALLY SUPERVISOR FILTER ASSEMBLY, VALERIE S 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 11/18/2011 SALLY SUPERVISOR FILTER ASSEMBLY, VALERIE S 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 11/18/2011 SALLY SUPERVISOR FILTER ASSEMBLY, VALERIE S 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 11/18/2011 YATES DO, KARO K 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 11/18/2011 SALLY SUPERVISOR FILTER ASSEMBLY, VALERIE S 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 12/05/2011 Ot 789.00 ABDOMINAL PAIN, UNSPECIFIED SITE 01/20/2012 YATES DO, KARO K 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 01/20/2012 YATES DO, KARO K 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 01/20/2012 ZORAIDA ESPAÑA APRN 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 01/20/2012 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 01/20/2012 SALLY RIVERA [...] S 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 01/20/2012 SALLY SUPERVISOR FILTER ASSEMBLY, VALERIE S 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 01/20/2012 YATES DO, KARO K 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 01/20/2012 SALLY SUPERVISOR FILTER ASSEMBLY, VALERIE S 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 01/20/2012 YATES DO, KARO K 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 01/20/2012 SALLY SUPERVISOR FILTER ASSEMBLY, VALERIE S 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 01/20/2012 SALLY SUPERVISOR FILTER ASSEMBLY, VALERIE S 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 01/20/2012 SALLY SUPERVISOR FILTER ASSEMBLY, VALERIE S 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 01/20/2012 YATES DO, KARO K 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 01/20/2012 SALLY SUPERVISOR FILTER ASSEMBLY, VALERIE S 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 02/09/2012 YATES DOKARO K V03.82 PPV23 (PNEUMOVAX) DX 02/09/2012 YATES DOKARO K V03.82 PPV23 (PNEUMOVAX) DX 02/09/2012 ZORAIDA ESPAÑA APRN V03.82 PPV23 (PNEUMOVAX) DX 02/09/2012 V03.82 PPV23 ( PNEUMOVAX) DX 02/09/2012 VALERIE ZAVALA APRN S V03.82 PPV23 (PNEUMOVAX) DX 02/09/2012 KARO YATES DO K V03.82 PPV23 (PNEUMOVAX) DX 02/09/2012 VALERIE ZAVALA APRN S V03.82 PPV23 (PNEUMOVAX) DX 02/09/2012 VALERIE ZAVALA APRN S V03.82 PPV23 (PNEUMOVAX) DX 02/09/2012 KARO YATES DO V03.82 PPV23 (PNEUMOVAX) DX 02/09/2012 V03.82 PPV23 ( PNEUMOVAX) DX 02/09/2012 V03.82 PPV23 ( PNEUMOVAX) DX 02/09/2012 V03.82 PPV23 ( PNEUMOVAX) DX 02/09/2012 MICHELLE CAMARGO MD V03.82 PPV23 (PNEUMOVAX) DX 02/09/2012 ADRIAN ZAVALA [...] APRNA S V03.82 PPV23 (PNEUMOVAX) DX 02/09/2012 KARO YATES DO K V03.82 PPV23 (PNEUMOVAX) DX 02/09/2012 VALERIE ZAVALA APRN S V03.82 PPV23 (PNEUMOVAX) DX 02/14/2012 KARO YATES DO K V70.0 ROUTINE [...] AT A HEALTH CARE FACILITY 02/14/2012 SALLY SUPERVISOR FILTER ASSEMBLYADRIAN TalleyA S V70.0 ROUTINE GENERAL MEDICAL EXAMINATION AT A HEALTH CARE FACILITY 02/14/2012 SALLY SUPERVISOR FILTER ASSEMBLYSERINA TalleyNDA S V70.0 ROUTINE GENERAL MEDICAL EXAMINATION AT A HEALTH CARE FACILITY 02/14/2012 SERINA ZAVALA APRNNDA S V70.0 ROUTINE GENERAL MEDICAL EXAMINATION AT A HEALTH CARE FACILITY 02/14/2012 SERINA ZAVALA APRNNDA S V70.0 ROUTINE GENERAL MEDICAL EXAMINATION AT A HEALTH CARE FACILITY 02/14/2012 SALLY SUPERVISOR FILTER ASSEMBLYSERINA TalleyNDA S V70.0 ROUTINE GENERAL MEDICAL EXAMINATION [...] EXAMINATION AT A HEALTH CARE FACILITY 02/14/2012 HALEY YATES DOA K V70.0 ROUTINE GENERAL MEDICAL EXAMINATION AT A HEALTH CARE FACILITY 02/14/2012 SERINA ZAVALA APRNNDA S V70.0 ROUTINE GENERAL MEDICAL EXAMINATION AT A HEALTH CARE FACILITY 02/14/2012 ADRIAN ZAVALA APRNA S V70.0 ROUTINE GENERAL MEDICAL EXAMINATION AT A HEALTH CARE FACILITY 02/14/2012 ADRIAN ZAVALA APRNA S V70.0 ROUTINE GENERAL MEDICAL EXAMINATION AT A HEALTH CARE FACILITY 02/14/2012 HALEY YATES DOA K V70.0 ROUTINE GENERAL MEDICAL EXAMINATION AT A HEALTH CARE FACILITY 02/14/2012 ADRIAN ZAVALA APRNA S V70.0 ROUTINE GENERAL MEDICAL EXAMINATION AT A HEALTH CARE FACILITY 02/20/2012 Ot 401.9 HYPERTENSION NOS 02/20/2012 Ot 733.99 BONE CARTILAGE DIS NEC 02/20/2012 Ot 735.0 HALLUX VALGUS 02/20/2012 Ot 735.4 OTHER HAMMER TOE 02/20/2012 Ot V58.69 OTH MED,LT, CURRENT USE 03/16/2012 YATES DO, KARO K 719.07 EDEMA FOOT 03/16/2012 YATES DO, KARO K 726.90 CAPSULITIS 03/16/2012 YATES DO, KARO K 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 03/16/2012 YATES DO, KARO K 719.07 EDEMA FOOT 03/16/2012 YATES DO, KARO K 726.90 CAPSULITIS 03/16/2012 YATES DO, KARO K 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07 EDEMA FOOT 03/16/2012 YATES DO, KARO K 726.90 CAPSULITIS 03/16/2012 YATES DO, KARO K 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 03/16/2012 SALLY SUPERVISOR FILTER ASSEMBLY, VALERIE S 719.07 EDEMA FOOT 03/16/2012 SALLY SUPERVISOR FILTER ASSEMBLY, VALERIE S 726.90 CAPSULITIS 03/16/2012 SALLY SUPERVISOR FILTER ASSEMBLY, VALERIE S 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 03/16/2012 SALLY SUPERVISOR FILTER ASSEMBLY, VALERIE S 719.07 EDEMA FOOT 03/16/2012 SALLY SUPERVISOR FILTER ASSEMBLY, VALERIE S 726.90 CAPSULITIS 03/16/2012 SALLY SUPERVISOR FILTER ASSEMBLY, VALERIE S 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 03/16/2012 [...] CAPSULITIS 03/16/2012 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 03/16/2012 MARY JO ABRAMS, MICHELLE 719.07 EDEMA FOOT 03/16/2012 MARY JO ABRAMS, MICHELLE 726.90 CAPSULITIS 03/16/2012 MICHELLE CAMARGO MD 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 03/16/2012 SALLY RIVERA VALERIE S 719.07 EDEMA FOOT 03/16/2012 SALLY RIVERA VALERIE S 726.90 CAPSULITIS 03/16/2012 SALLY SUPERVISOR FILTER ASSEMBLY, VALERIE S 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 03/16/2012 SALLY SUPERVISOR FILTER ASSEMBLY, VALERIE S 719.07 EDEMA FOOT 03/16/2012 SALLY RIVERA, VALERIE S 726.90 CAPSULITIS 03/16/2012 SALLY SUPERVISOR FILTER ASSEMBLY, VALERIE S 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 03/16/2012 YATES DOHALEYA K 719.07 EDEMA FOOT 03/16/2012 YATES DOHALEYA K 726.90 CAPSULITIS 03/16/2012 YATES DO KARO K 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 03/16/2012 SALLY RIVERA, VALERIE S 719.07 EDEMA FOOT 03/16/2012 SALLY RIVERA, VALERIE S 726.90 CAPSULITIS 03/16/2012 SALLY RIVERA, VALERIE S 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 03/16/2012 YATES DO KARO K 719.07 EDEMA FOOT 03/16/2012 YATES DO KARO K 726.90 CAPSULITIS 03/16/2012 YATES DO KARO K 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 03/16/2012 SALLY SUPERVISOR FILTER ASSEMBLY, VALERIE S 719.07 EDEMA FOOT 03/16/2012 SALLY SUPERVISOR FILTER ASSEMBLY, VALERIE S 726.90 CAPSULITIS 03/16/2012 SALLY SUPERVISOR FILTER ASSEMBLY, VALERIE S 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 03/16/2012 SALLY SUPERVISOR FILTER ASSEMBLY, VALERIE S 719.07 EDEMA FOOT 03/16/2012 SALLY SUPERVISOR FILTER ASSEMBLY, VALERIE S 726.90 CAPSULITIS 03/16/2012 SALLY SUPERVISOR FILTER ASSEMBLY, VALERIE S 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 03/16/2012 SALLY SUPERVISOR FILTER ASSEMBLY, VALERIE S 719.07 EDEMA FOOT 03/16/2012 SALLY SUPERVISOR FILTER ASSEMBLY, VALERIE S 726.90 CAPSULITIS 03/16/2012 SALLY SUPERVISOR FILTER ASSEMBLY, VALERIE S 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 03/16/2012 SALLY SUPERVISOR FILTER ASSEMBLY, VALERIE S 719.07 EDEMA FOOT 03/16/2012 SALLY SUPERVISOR FILTER ASSEMBLY, VALERIE S 726.90 CAPSULITIS 03/16/2012 SALLY SUPERVISOR FILTER ASSEMBLY, VALERIE S 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 03/16/2012 SALLY SUPERVISOR FILTER ASSEMBLY, VALERIE S 719.07 EDEMA FOOT 03/16/2012 SALLY SUPERVISOR FILTER ASSEMBLY, VALERIE S 726.90 CAPSULITIS 03/16/2012 SALLY SUPERVISOR FILTER ASSEMBLY, VALERIE S 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 03/16/2012 SALLY SUPERVISOR FILTER ASSEMBLY, VALERIE S 719.07 EDEMA FOOT 03/16/2012 SALLY SUPERVISOR FILTER ASSEMBLY, VALERIE S 726.90 CAPSULITIS 03/16/2012 SALLY SUPERVISOR FILTER ASSEMBLY, VALERIE S 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 03/16/2012 SALLY SUPERVISOR FILTER ASSEMBLY, VALERIE S 719.07 EDEMA FOOT 03/16/2012 SALLY SUPERVISOR FILTER ASSEMBLY, VALERIE S 726.90 CAPSULITIS 03/16/2012 SALLY SUPERVISOR FILTER ASSEMBLY, VALERIE S 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 03/16/2012 YATES DO, KARO K 719.07 EDEMA FOOT 03/16/2012 AYTES DO, KARO K 726.90 CAPSULITIS 03/16/2012 YATES DO, KARO K 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 03/16/2012 SALLY SUPERVISOR FILTER ASSEMBLY, VALERIE S 719.07 EDEMA FOOT 03/16/2012 SALLY SUPERVISOR FILTER ASSEMBLY, VALERIE S 726.90 CAPSULITIS 03/16/2012 SALLY SUPERVISOR FILTER ASSEMBLY, VALERIE S 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 03/16/2012 YATES DO, KARO K 719.07 EDEMA FOOT 03/16/2012 YTAES DO, KARO K 726.90 CAPSULITIS 03/16/2012 YATES DO, KARO K 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 03/16/2012 SALLY SUPERVISOR FILTER ASSEMBLY, VALERIE S 719.07 EDEMA FOOT 03/16/2012 SALLY SUPERVISOR FILTER ASSEMBLY, VALERIE S 726.90 CAPSULITIS 03/16/2012 SALLY SUPERVISOR FILTER ASSEMBLY, VALERIE S 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 03/16/2012 SALLY SUPERVISOR FILTER ASSEMBLY, VALERIE S 719.07 EDEMA FOOT 03/16/2012 SALLY SUPERVISOR FILTER ASSEMBLY, VALERIE S 726.90 CAPSULITIS 03/16/2012 SALLY SUPERVISOR FILTER ASSEMBLY, VALERIE S 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 03/16/2012 SALLY SUPERVISOR FILTER ASSEMBLY, VALERIE S 719.07 EDEMA FOOT 03/16/2012 SALLY SUPERVISOR FILTER ASSEMBLY, VALERIE S 726.90 CAPSULITIS 03/16/2012 SALLY SUPERVISOR FILTER ASSEMBLY, VALERIE S 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 03/16/2012 YATES DO, KARO K 719.07 EDEMA FOOT 03/16/2012 YATES DO, KARO K 726.90 CAPSULITIS 03/16/2012 YATES DO, KARO K 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 03/16/2012 SALLY SUPERVISOR FILTER ASSEMBLY, VALERIE S 719.07 EDEMA FOOT 03/16/2012 SALLY SUPERVISOR FILTER ASSEMBLY, VALERIE S 726.90 CAPSULITIS 03/16/2012 SALLY SUPERVISOR FILTER ASSEMBLY, VALERIE S 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 03/30/2012 YATES DO KARO K V45.89 POSTSURGICAL STATUS 03/30/2012 YATES DO KARO K V45.89 POSTSURGICAL STATUS 03/30/2012 ESPAÑA SUPERVISOR FILTER ASSEMBLY, ZORAIDA R V45.89 POSTSURGICAL STATUS 03/30/2012 V45.89 POSTSURGICAL STATUS 03/30/2012 SALLY SUPERVISOR FILTER ASSEMBLY, VALERIE S V45.89 POSTSURGICAL STATUS 03/30/2012 YATES DO KARO K V45.89 POSTSURGICAL STATUS 03/30/2012 SALLY SUPERVISOR FILTER ASSEMBLY, VALERIE S V45.89 POSTSURGICAL STATUS 03/30/2012 SALLY SUPERVISOR FILTER ASSEMBLY, VALERIE S V45.89 POSTSURGICAL STATUS 03/30/2012 YATES DO KARO K V45.89 POSTSURGICAL STATUS 03/30/2012 V45.89 POSTSURGICAL STATUS 03/30/2012 V45.89 POSTSURGICAL STATUS 03/30/2012 V45.89 POSTSURGICAL STATUS 03/30/2012 MICHELLE CAMARGO MD V45.89 POSTSURGICAL STATUS 03/30/2012 SALLY SUPERVISOR FILTER ASSEMBLY, VALERIE S V45.89 POSTSURGICAL STATUS 03/30/2012 SALLY SUPERVISOR FILTER ASSEMBLY, VALERIE S V45.89 POSTSURGICAL STATUS 03/30/2012 YATES DO KARO K V45.89 POSTSURGICAL STATUS 03/30/2012 SALLY SUPERVISOR FILTER ASSEMBLY, VALERIE S V45.89 POSTSURGICAL STATUS 03/30/2012 YATES DO KARO K V45.89 POSTSURGICAL STATUS 03/30/2012 SALLY SUPERVISOR FILTER ASSEMBLY, VALERIE S V45.89 POSTSURGICAL STATUS 03/30/2012 SALLY SUPERVISOR FILTER ASSEMBLY, VALERIE S V45.89 POSTSURGICAL STATUS 03/30/2012 SALLY SUPERVISOR FILTER ASSEMBLY, VALERIE S V45.89 POSTSURGICAL STATUS 03/30/2012 SALLY SUPERVISOR FILTER ASSEMBLY, VALERIE S V45.89 POSTSURGICAL STATUS 03/30/2012 SALLY SUPERVISOR FILTER ASSEMBLY, VALERIE S V45.89 POSTSURGICAL STATUS 03/30/2012 SALLY SUPERVISOR FILTER ASSEMBLY, VALERIE S V45.89 POSTSURGICAL STATUS 03/30/2012 SALLY SUPERVISOR FILTER ASSEMBLY, VALERIE S V45.89 POSTSURGICAL STATUS 03/30/2012 YATES DO KARO K V45.89 POSTSURGICAL STATUS 03/30/2012 SALLY SUPERVISOR FILTER ASSEMBLY, VALERIE S V45.89 POSTSURGICAL STATUS 03/30/2012 YATES DO, KARO K V45.89 POSTSURGICAL STATUS 03/30/2012 SALLY SUPERVISOR FILTER ASSEMBLY, VALERIE S V45.89 POSTSURGICAL STATUS 03/30/2012 SALLY SUPERVISOR FILTER ASSEMBLY, VALERIE S V45.89 POSTSURGICAL STATUS 03/30/2012 SALLY SUPERVISOR FILTER ASSEMBLY, VALERIE S V45.89 POSTSURGICAL STATUS 03/30/2012 YATES DO, KARO K V45.89 POSTSURGICAL STATUS 03/30/2012 SALLY SUPERVISOR FILTER ASSEMBLY, VALERIE S V45.89 POSTSURGICAL STATUS 05/29/2012 TACO SUPERVISOR FILTER ASSEMBLY, ZORAIDA R 786.2 cough 05/29/2012 786.2 cough 05/29/2012 SALLY SUPERVISOR FILTER ASSEMBLY, VALERIE S 786.2 cough 05/29/2012 YATES DO, KARO K 786.2 cough 05/29/2012 SALLY SUPERVISOR FILTER ASSEMBLY, VALERIE S 786.2 cough 05/29/2012 SALLY SUPERVISOR FILTER ASSEMBLY, VALERIE S 786.2 cough 05/29/2012 YATES DO KARO K 786.2 cough 05/29/2012 786.2 cough 05/29/2012 786.2 COUGH 05/29/2012 786.2 COUGH 05/29/2012 MICHELLE CAMARGO MD 786.2 COUGH 05/29/2012 SALLY SUPERVISOR FILTER ASSEMBLY, VALERIE S 786.2 COUGH 05/29/2012 SALLY SUPERVISOR FILTER ASSEMBLY, VALERIE S 786.2 COUGH 05/29/2012 YATES DO, KARO K 786.2 COUGH 05/29/2012 SALLY SUPERVISOR FILTER ASSEMBLY, VALERIE S 786.2 COUGH 05/29/2012 YATES DO, KARO K 786.2 COUGH 05/29/2012 SALLY SUPERVISOR FILTER ASSEMBLY, VALERIE S 786.2 COUGH 05/29/2012 SALLY SUPERVISOR FILTER ASSEMBLY, VALERIE S 786.2 COUGH 05/29/2012 SALLY SUPERVISOR FILTER ASSEMBLY, VALERIE S 786.2 COUGH 05/29/2012 SALLY SUPERVISOR FILTER ASSEMBLY, VALERIE S 786.2 COUGH 05/29/2012 SALLY SUPERVISOR FILTER ASSEMBLY, VALERIE S 786.2 COUGH 05/29/2012 SALLY SUPERVISOR FILTER ASSEMBLY, VALERIE S 786.2 COUGH 05/29/2012 SALLY SUPERVISOR FILTER ASSEMBLY, VALERIE S 786.2 COUGH 05/29/2012 YATES DO, KARO K 786.2 COUGH 05/29/2012 SALLY SUPERVISOR FILTER ASSEMBLY, VALERIE S 786.2 COUGH 05/29/2012 YATES DO, KARO K 786.2 COUGH 05/29/2012 SALLY SUPERVISOR FILTER ASSEMBLY, VALERIE S 786.2 COUGH 05/29/2012 SALLY SUPERVISOR FILTER ASSEMBLY, VALERIE S 786.2 COUGH 05/29/2012 SALLY SUPERVISOR FILTER ASSEMBLY, VALERIE S 786.2 COUGH 05/29/2012 YATES DO, KARO K 786.2 COUGH 05/29/2012 SALLY SUPERVISOR FILTER ASSEMBLY, VALERIE S 786.2 COUGH 06/05/2012 461.9 SINUSITIS ACUTE 06/05/2012 SALLY SUPERVISOR FILTER ASSEMBLY, VALERIE S 461.9 SINUSITIS ACUTE 06/05/2012 YATES DO, KARO K 461.9 SINUSITIS ACUTE 06/05/2012 SALLY SUPERVISOR FILTER ASSEMBLY, VALERIE S 461.9 SINUSITIS ACUTE 06/05/2012 SALLY SUPERVISOR FILTER ASSEMBLY, VALERIE S 461.9 SINUSITIS ACUTE 06/05/2012 YATES DO KARO K 461.9 SINUSITIS ACUTE 06/05/2012 461.9 SINUSITIS ACUTE 06/05/2012 461.9 SINUSITIS ACUTE 06/05/2012 461.9 SINUSITIS ACUTE 06/05/2012 MICHELLE CAMARGO MD 461.9 SINUSITIS ACUTE 06/05/2012 SALLY SUPERVISOR FILTER ASSEMBLY, VALERIE S 461.9 SINUSITIS ACUTE 06/05/2012 SALLY SUPERVISOR FILTER ASSEMBLY, VALERIE S 461.9 SINUSITIS ACUTE 06/05/2012 YATES DO KARO K 461.9 SINUSITIS ACUTE 06/05/2012 SALLY SUPERVISOR FILTER ASSEMBLY, VALERIE S 461.9 SINUSITIS ACUTE 06/05/2012 YATES DO, KARO K 461.9 SINUSITIS ACUTE 06/05/2012 SALLY SUPERVISOR FILTER ASSEMBLY, VALERIE S 461.9 SINUSITIS ACUTE 06/05/2012 SALLY SUPERVISOR FILTER ASSEMBLY, VALERIE S 461.9 SINUSITIS ACUTE 06/05/2012 SALLY SUPERVISOR FILTER ASSEMBLY, VALERIE S 461.9 SINUSITIS ACUTE 06/05/2012 SALLY SUPERVISOR FILTER ASSEMBLY, VALERIE S 461.9 SINUSITIS ACUTE 06/05/2012 SALLY SUPERVISOR FILTER ASSEMBLY, VALERIE S 461.9 SINUSITIS ACUTE 06/05/2012 SALLY SUPERVISOR FILTER ASSEMBLY, VALERIE S 461.9 SINUSITIS ACUTE 06/05/2012 SALLY SUPERVISOR FILTER ASSEMBLY, VALERIE S 461.9 SINUSITIS ACUTE 06/05/2012 HALEY YATES DOA K 461.9 SINUSITIS ACUTE 06/05/2012 SALLY SUPERVISOR FILTER ASSEMBLY, VALERIE S 461.9 SINUSITIS ACUTE 06/05/2012 HALEY YATES DOA K 461.9 SINUSITIS ACUTE 06/05/2012 SALLY SUPERVISOR FILTER ASSEMBLY, VALERIE S 461.9 SINUSITIS ACUTE 06/05/2012 SALLY SUPERVISOR FILTER ASSEMBLY, VALERIE S 461.9 SINUSITIS ACUTE 06/05/2012 SALLY SUPERVISOR FILTER ASSEMBLY, VALERIE S 461.9 SINUSITIS ACUTE 06/05/2012 HALEY YATES DOA K 461.9 SINUSITIS ACUTE 06/05/2012 SALLY SUPERVISOR FILTER ASSEMBLY, VALERIE S 461.9 SINUSITIS ACUTE 07/04/2012 SALLY SUPERVISOR FILTER ASSEMBLY, VALERIE S 535.50 UNSPECIFIED GASTRITIS AND GASTRODUODENITIS (WITHOUT HEMORRHAGE) 07/04/2012 SALLY SUPERVISOR FILTER ASSEMBLY, VALERIE S 535.50 UNSPECIFIED GASTRITIS AND GASTRODUODENITIS (WITHOUT HEMORRHAGE) 07/04/2012 KARO YATES DO 535.50 UNSPECIFIED GASTRITIS AND GASTRODUODENITIS (WITHOUT HEMORRHAGE) 07/04/2012 535.50 UNSPECIFIED GASTRITIS AND GASTRODUODENITIS (WITHOUT HEMORRHAGE) 07/04/2012 535.50 UNSPECIFIED GASTRITIS AND GASTRODUODENITIS (WITHOUT HEMORRHAGE) 07/04/2012 535.50 UNSPECIFIED GASTRITIS AND GASTRODUODENITIS (WITHOUT HEMORRHAGE) 07/04/2012 MICHELLE CAMARGO MD 535.50 UNSPECIFIED GASTRITIS AND GASTRODUODENITIS (WITHOUT HEMORRHAGE) 07/04/2012 SALLY SUPERVISOR FILTER ASSEMBLY, VALERIE S 535.50 UNSPECIFIED GASTRITIS AND GASTRODUODENITIS (WITHOUT HEMORRHAGE) 07/04/2012 SALLY SUPERVISOR FILTER ASSEMBLY, VALERIE S 535.50 UNSPECIFIED GASTRITIS AND GASTRODUODENITIS (WITHOUT HEMORRHAGE) 07/04/2012 KARO YATES DO 535.50 UNSPECIFIED GASTRITIS AND GASTRODUODENITIS (WITHOUT HEMORRHAGE) 07/04/2012 SALLY SUPERVISOR FILTER ASSEMBLY, VALERIE S 535.50 UNSPECIFIED GASTRITIS AND GASTRODUODENITIS (WITHOUT HEMORRHAGE) 07/04/2012 YATES DO KARO K 535.50 UNSPECIFIED GASTRITIS AND GASTRODUODENITIS (WITHOUT HEMORRHAGE) 07/04/2012 SALLY SUPERVISOR FILTER ASSEMBLY, VALERIE S 535.50 UNSPECIFIED GASTRITIS AND GASTRODUODENITIS (WITHOUT HEMORRHAGE) 07/04/2012 SALLY SUPERVISOR FILTER ASSEMBLY, VALERIE S 535.50 UNSPECIFIED GASTRITIS AND GASTRODUODENITIS (WITHOUT HEMORRHAGE) 07/04/2012 SALLY SUPERVISOR FILTER ASSEMBLY, VALERIE S 535.50 UNSPECIFIED GASTRITIS AND GASTRODUODENITIS (WITHOUT HEMORRHAGE) 07/04/2012 SALLY SUPERVISOR FILTER ASSEMBLY, VALERIE S 535.50 UNSPECIFIED GASTRITIS AND GASTRODUODENITIS (WITHOUT HEMORRHAGE) 07/04/2012 SALLY SUPERVISOR FILTER ASSEMBLY, VALERIE S 535.50 UNSPECIFIED GASTRITIS AND GASTRODUODENITIS (WITHOUT HEMORRHAGE) 07/04/2012 SALLY SUPERVISOR FILTER ASSEMBLY, VALERIE S 535.50 UNSPECIFIED GASTRITIS AND GASTRODUODENITIS (WITHOUT HEMORRHAGE) 07/04/2012 SALLY SUPERVISOR FILTER ASSEMBLY, VALERIE S 535.50 UNSPECIFIED GASTRITIS AND GASTRODUODENITIS (WITHOUT HEMORRHAGE) 07/04/2012 YATES DO KARO K 535.50 UNSPECIFIED GASTRITIS AND GASTRODUODENITIS (WITHOUT HEMORRHAGE) 07/04/2012 SALLY SUPERVISOR FILTER ASSEMBLY, VALERIE S 535.50 UNSPECIFIED GASTRITIS AND GASTRODUODENITIS (WITHOUT HEMORRHAGE) 07/04/2012 YATES DO KARO K 535.50 UNSPECIFIED GASTRITIS AND GASTRODUODENITIS (WITHOUT HEMORRHAGE) 07/04/2012 SALLY SUPERVISOR FILTER ASSEMBLY, VALERIE S 535.50 UNSPECIFIED GASTRITIS AND GASTRODUODENITIS (WITHOUT HEMORRHAGE) 07/04/2012 SALLY SUPERVISOR FILTER ASSEMBLY, VALERIE S 535.50 UNSPECIFIED GASTRITIS AND GASTRODUODENITIS (WITHOUT HEMORRHAGE) 07/04/2012 SALLY SUPERVISOR FILTER ASSEMBLY, VALERIE S 535.50 UNSPECIFIED GASTRITIS AND GASTRODUODENITIS (WITHOUT HEMORRHAGE) 07/04/2012 YATES DO KARO K 535.50 UNSPECIFIED GASTRITIS AND GASTRODUODENITIS (WITHOUT HEMORRHAGE) 07/04/2012 SALLY SUPERVISOR FILTER ASSEMBLY, VALERIE S 535.50 UNSPECIFIED GASTRITIS AND GASTRODUODENITIS (WITHOUT HEMORRHAGE) 07/30/2012 SALLY SUPERVISOR FILTER ASSEMBLY, VALERIE S 788.1 DYSURIA 07/30/2012 YATES DO, KARO K 788.1 DYSURIA 07/30/2012 788.1 DYSURIA 07/30/2012 788.1 DYSURIA 07/30/2012 788.1 DYSURIA 07/30/2012 MICHELLE CAMARGO MD 788.1 DYSURIA 07/30/2012 SALLY SUPERVISOR FILTER ASSEMBLY, VALERIE S 788.1 DYSURIA 07/30/2012 SALLY SUPERVISOR FILTER ASSEMBLY, VALERIE S 788.1 DYSURIA 07/30/2012 YATES DO, KARO K 788.1 DYSURIA 07/30/2012 SALLY SUPERVISOR FILTER ASSEMBLY, VALERIE S 788.1 DYSURIA 07/30/2012 YATES DO, KARO K 788.1 DYSURIA 07/30/2012 SALLY SUPERVISOR FILTER ASSEMBLY, VALERIE S 788.1 DYSURIA 07/30/2012 SALLY SUPERVISOR FILTER ASSEMBLY, VALERIE S 788.1 DYSURIA 07/30/2012 SALLY SUPERVISOR FILTER ASSEMBLY, VALERIE S 788.1 DYSURIA 07/30/2012 SALLY SUPERVISOR FILTER ASSEMBLY, VALERIE S 788.1 DYSURIA 07/30/2012 SALLY SUPERVISOR FILTER ASSEMBLY, VALERIE S 788.1 DYSURIA 07/30/2012 SALLY SUPERVISOR FILTER ASSEMBLY, VALERIE S 788.1 DYSURIA 07/30/2012 SALLY SUPERVISOR FILTER ASSEMBLY, VALERIE S 788.1 DYSURIA 07/30/2012 YATES DO, KARO K 788.1 DYSURIA 07/30/2012 SALLY SUPERVISOR FILTER ASSEMBLY, VALERIE S 788.1 DYSURIA 07/30/2012 YATES DO, KARO K 788.1 DYSURIA 07/30/2012 SALLY SUPERVISOR FILTER ASSEMBLY, VALERIE S 788.1 DYSURIA 07/30/2012 SALLY SUPERVISOR FILTER ASSEMBLY, VALERIE S 788.1 DYSURIA 07/30/2012 SALLY SUPERVISOR FILTER ASSEMBLY, VALERIE S 788.1 DYSURIA 07/30/2012 YATES DO, KARO K 788.1 DYSURIA 07/30/2012 SALLY SUPERVISOR FILTER ASSEMBLY, VALERIE S 788.1 DYSURIA 02/04/2013 MARY JO ABRAMS, MICHELLE 719.40 ARTHRAIGIA UNSPEC 02/04/2013 SALLY SUPERVISOR FILTER ASSEMBLY, VALERIE S 719.40 ARTHRAIGIA UNSPEC 02/04/2013 SALLY SUPERVISOR FILTER ASSEMBLY, VALERIE S 719.40 ARTHRAIGIA UNSPEC 02/04/2013 YATES DO, KARO K 719.40 ARTHRAIGIA UNSPEC 02/04/2013 SALLY SUPERVISOR FILTER ASSEMBLY, VALERIE S 719.40 ARTHRAIGIA UNSPEC 02/04/2013 YATES DO, KARO K 719.40 ARTHRAIGIA UNSPEC 02/04/2013 SALLY SUPERVISOR FILTER ASSEMBLY, VALERIE S 719.40 ARTHRAIGIA UNSPEC 02/04/2013 SALLY SUPERVISOR FILTER ASSEMBLY, VALERIE S 719.40 ARTHRAIGIA UNSPEC 02/04/2013 SALLY SUPERVISOR FILTER ASSEMBLY, VALERIE S 719.40 ARTHRAIGIA UNSPEC 02/04/2013 SALLY SUPERVISOR FILTER ASSEMBLY, VALERIE S 719.40 ARTHRAIGIA UNSPEC 02/04/2013 SALLY SUPERVISOR FILTER ASSEMBLY, VALERIE S 719.40 ARTHRAIGIA UNSPEC 02/04/2013 SALLY SUPERVISOR FILTER ASSEMBLY, VALERIE S 719.40 ARTHRAIGIA UNSPEC 02/04/2013 SALLY SUPERVISOR FILTER ASSEMBLY, VALERIE S 719.40 ARTHRAIGIA UNSPEC 02/04/2013 YATES DO, KARO K 719.40 ARTHRAIGIA UNSPEC 02/04/2013 SALLY SUPERVISOR FILTER ASSEMBLY, VALERIE S 719.40 ARTHRAIGIA UNSPEC 02/04/2013 YATES DO, KARO K 719.40 ARTHRAIGIA UNSPEC 02/04/2013 SALLY SUPERVISOR FILTER ASSEMBLY, VALERIE S 719.40 ARTHRAIGIA UNSPEC 02/04/2013 SALLY SUPERVISOR FILTER ASSEMBLY, VALERIE S 719.40 ARTHRAIGIA UNSPEC 02/04/2013 SALLY SUPERVISOR FILTER ASSEMBLY, VALERIE S 719.40 ARTHRAIGIA UNSPEC 02/04/2013 YATES DO, KARO K 719.40 ARTHRAIGIA UNSPEC 02/04/2013 SALLY SUPERVISOR FILTER ASSEMBLY, VALERIE S 719.40 ARTHRAIGIA UNSPEC 04/02/2013 SALLY SUPERVISOR FILTER ASSEMBLY, VALERIE S 786.52 CHEST WALL PAIN 04/02/2013 YATES DO, KARO K 786.52 CHEST WALL PAIN 04/02/2013 SALLY SUPERVISOR FILTER ASSEMBLY, VALERIE S 786.52 CHEST WALL PAIN 04/02/2013 YATES DO, KARO K 786.52 CHEST WALL PAIN 04/02/2013 SALLY SUPERVISOR FILTER ASSEMBLY, VALERIE S 786.52 CHEST WALL PAIN 04/02/2013 SALLY SUPERVISOR FILTER ASSEMBLY, VALERIE S 786.52 CHEST WALL PAIN 04/02/2013 SALLY SUPERVISOR FILTER ASSEMBLY, VALERIE S 786.52 CHEST WALL PAIN 04/02/2013 SALLY SUPERVISOR FILTER ASSEMBLY, VALERIE S 786.52 CHEST WALL PAIN 04/02/2013 SALLY SUPERVISOR FILTER ASSEMBLY, VALERIE S 786.52 CHEST WALL PAIN 04/02/2013 SALLY SUPERVISOR FILTER ASSEMBLY, VALERIE S 786.52 CHEST WALL PAIN 04/02/2013 SALLY SUPERVISOR FILTER ASSEMBLY, VALERIE S 786.52 CHEST WALL PAIN 04/02/2013 YATES DO KARO K 786.52 CHEST WALL PAIN 04/02/2013 SALLY SUPERVISOR FILTER ASSEMBLY, VALERIE S 786.52 CHEST WALL PAIN 04/02/2013 YATES DO, KARO K 786.52 CHEST WALL PAIN 04/02/2013 SALLY SUPERVISOR FILTER ASSEMBLY, VALERIE S 786.52 CHEST WALL PAIN 04/02/2013 SALLY SUPERVISOR FILTER ASSEMBLY, VALERIE S 786.52 CHEST WALL PAIN 04/02/2013 SALLY SUPERVISOR FILTER ASSEMBLY, VALERIE S 786.52 CHEST WALL PAIN 04/02/2013 YATES DO, KARO K 786.52 CHEST WALL PAIN 04/02/2013 SALLY SUPERVISOR FILTER ASSEMBLY, VALERIE S 786.52 CHEST WALL PAIN 04/06/2013 MILAN RAMIREZ KARO K 053.9 HERPES ZOSTER (SHINGLES) 04/06/2013 YATES DO, KARO K 382.00 ACUTE OTITIS MEDIA (LEFT) 04/06/2013 SALLY SUPERVISOR FILTER ASSEMBLY, VALERIE S 053.9 HERPES ZOSTER (SHINGLES) 04/06/2013 SALLY SUPERVISOR FILTER ASSEMBLY, VALERIE S 382.00 ACUTE OTITIS MEDIA (LEFT) 04/06/2013 YATES DO, KARO K 053.9 HERPES ZOSTER (SHINGLES) 04/06/2013 YATES DO, KARO K 382.00 ACUTE OTITIS MEDIA (LEFT) 04/06/2013 SALLY SUPERVISOR FILTER ASSEMBLY, VALERIE S 053.9 HERPES ZOSTER (SHINGLES) 04/06/2013 SALLY SUPERVISOR FILTER ASSEMBLY, VALERIE S 382.00 ACUTE OTITIS MEDIA (LEFT) 04/06/2013 SALLY SUPERVISOR FILTER ASSEMBLY, VALERIE S 053.9 HERPES ZOSTER (SHINGLES) 04/06/2013 SALLY SUPERVISOR FILTER ASSEMBLY, VALERIE S 382.00 ACUTE OTITIS MEDIA (LEFT) 04/06/2013 SALLY SUPERVISOR FILTER ASSEMBLY, VALERIE S 053.9 HERPES ZOSTER (SHINGLES) 04/06/2013 SALLY SUPERVISOR FILTER ASSEMBLY, VALERIE S 382.00 ACUTE OTITIS MEDIA (LEFT) 04/06/2013 SALLY SUPERVISOR FILTER ASSEMBLY, VALERIE S 053.9 HERPES ZOSTER (SHINGLES) 04/06/2013 SALLY SUPERVISOR FILTER ASSEMBLY, VALERIE S 382.00 ACUTE OTITIS MEDIA (LEFT) 04/06/2013 SALLY SUPERVISOR FILTER ASSEMBLY, VALERIE S 053.9 HERPES ZOSTER (SHINGLES) 04/06/2013 SALLY SUPERVISOR FILTER ASSEMBLY, VALERIE S 382.00 ACUTE OTITIS MEDIA (LEFT) 04/06/2013 SALLY SUPERVISOR FILTER ASSEMBLY, VALERIE S 053.9 HERPES ZOSTER (SHINGLES) 04/06/2013 SALLY SUPERVISOR FILTER ASSEMBLY, VALERIE S 382.00 ACUTE OTITIS MEDIA (LEFT) 04/06/2013 SALLY SUPERVISOR FILTER ASSEMBLY, VALERIE S 053.9 HERPES ZOSTER (SHINGLES) 04/06/2013 SALLY SUPERVISOR FILTER ASSEMBLY, VALERIE S 382.00 ACUTE OTITIS MEDIA (LEFT) 04/06/2013 YATES DO, KARO K 053.9 HERPES ZOSTER (SHINGLES) 04/06/2013 YATES DO, KARO K 382.00 ACUTE OTITIS MEDIA (LEFT) 04/06/2013 SALLY SUPERVISOR FILTER ASSEMBLY, VALERIE S 053.9 HERPES ZOSTER (SHINGLES) 04/06/2013 SALLY SUPERVISOR FILTER ASSEMBLY, VALERIE S 382.00 ACUTE OTITIS MEDIA (LEFT) 04/06/2013 YATES DO, KARO K 053.9 HERPES ZOSTER (SHINGLES) 04/06/2013 YATES DO, KARO K 382.00 ACUTE OTITIS MEDIA (LEFT) 04/06/2013 SALLY SUPERVISOR FILTER ASSEMBLY, VALERIE S 053.9 HERPES ZOSTER (SHINGLES) 04/06/2013 SALLY SUPERVISOR FILTER ASSEMBLY, VALERIE S 382.00 ACUTE OTITIS MEDIA (LEFT) 04/06/2013 SALLY SUPERVISOR FILTER ASSEMBLY, VALERIE S 053.9 HERPES ZOSTER (SHINGLES) 04/06/2013 SALLY SUPERVISOR FILTER ASSEMBLY, VALERIE S 382.00 ACUTE OTITIS MEDIA (LEFT) 04/06/2013 SALLY SUPERVISOR FILTER ASSEMBLY, VALERIE S 053.9 HERPES ZOSTER (SHINGLES) 04/06/2013 SALLY SUPERVISOR FILTER ASSEMBLY, VALERIE S 382.00 ACUTE OTITIS MEDIA (LEFT) 04/06/2013 YATES DO, KARO K 053.9 HERPES ZOSTER (SHINGLES) 04/06/2013 YATES DO, KARO K 382.00 ACUTE OTITIS MEDIA (LEFT) 04/06/2013 SALLY SUPERVISOR FILTER ASSEMBLY, VALERIE S 053.9 HERPES ZOSTER (SHINGLES) 04/06/2013 SALLY SUPERVISOR FILTER ASSEMBLY, VALERIE S 382.00 ACUTE OTITIS MEDIA (LEFT) 04/10/2013 SALLY SUPERVISOR FILTER ASSEMBLY, VALERIE S 380.4 CERUMEN IMPACTION 04/10/2013 SALLY SUPERVISOR FILTER ASSEMBLY, VALERIE S V76.12 MAMMOGRAM SCREENING 04/10/2013 YATES DO, KARO K 380.4 CERUMEN IMPACTION 04/10/2013 YATES DO, KARO K V76.12 MAMMOGRAM SCREENING 04/10/2013 SALLY SUPERVISOR FILTER ASSEMBLY, VALERIE S 380.4 CERUMEN IMPACTION 04/10/2013 SALLY SUPERVISOR FILTER ASSEMBLY, VALERIE S V76.12 MAMMOGRAM SCREENING 04/10/2013 SALLY SUPERVISOR FILTER ASSEMBLY, VALERIE S 380.4 CERUMEN IMPACTION 04/10/2013 SALLY SUPERVISOR FILTER ASSEMBLY, VALERIE S V76.12 MAMMOGRAM SCREENING 04/10/2013 SALLY SUPERVISOR FILTER ASSEMBLY, VALERIE S 380.4 CERUMEN IMPACTION 04/10/2013 SALLY SUPERVISOR FILTER ASSEMBLY, VALERIE S V76.12 MAMMOGRAM SCREENING 04/10/2013 SALLY SUPERVISOR FILTER ASSEMBLY, VALERIE S 380.4 CERUMEN IMPACTION 04/10/2013 SALLY SUPERVISOR FILTER ASSEMBLY, VALERIE S V76.12 MAMMOGRAM SCREENING 04/10/2013 SALLY SUPERVISOR FILTER ASSEMBLY, VALERIE S 380.4 CERUMEN IMPACTION 04/10/2013 SALLY SUPERVISOR FILTER ASSEMBLY, VALERIE S V76.12 MAMMOGRAM SCREENING 04/10/2013 SALLY SUPERVISOR FILTER ASSEMBLY, VALERIE S 380.4 CERUMEN IMPACTION 04/10/2013 SALLY SUPERVISOR FILTER ASSEMBLY, VALERIE S V76.12 MAMMOGRAM SCREENING 04/10/2013 SALLY SUPERVISOR FILTER ASSEMBLY, VALERIE S 380.4 CERUMEN IMPACTION 04/10/2013 SALLY SUPERVISOR FILTER ASSEMBLY, VALERIE S V76.12 MAMMOGRAM SCREENING 04/10/2013 YATES DO, KARO K 380.4 CERUMEN IMPACTION 04/10/2013 YATES DO, KARO K V76.12 MAMMOGRAM SCREENING 04/10/2013 SALLY SUPERVISOR FILTER ASSEMBLY, VALERIE S 380.4 CERUMEN IMPACTION 04/10/2013 SALLY SUPERVISOR FILTER ASSEMBLY, VALERIE S V76.12 MAMMOGRAM SCREENING 04/10/2013 YATES DO, KARO K 380.4 CERUMEN IMPACTION 04/10/2013 YATES DO, KARO K V76.12 MAMMOGRAM SCREENING 04/10/2013 SALLY SUPERVISOR FILTER ASSEMBLY, VALERIE S 380.4 CERUMEN IMPACTION 04/10/2013 SALLY SUPERVISOR FILTER ASSEMBLY, VALERIE S V76.12 MAMMOGRAM SCREENING 04/10/2013 SALLY SUPERVISOR FILTER ASSEMBLY, VALERIE S 380.4 CERUMEN IMPACTION 04/10/2013 SALLY SUPERVISOR FILTER ASSEMBLY, VALERIE S V76.12 MAMMOGRAM SCREENING 04/10/2013 SALLY SUPERVISOR FILTER ASSEMBLY, VALERIE S 380.4 CERUMEN IMPACTION 04/10/2013 SALLY SUPERVISOR FILTER ASSEMBLY, VALERIE S V76.12 MAMMOGRAM SCREENING 04/10/2013 YATES DO, KARO K 380.4 CERUMEN IMPACTION 04/10/2013 YATES DO, KARO K V76.12 MAMMOGRAM SCREENING 04/10/2013 SALLY SUPERVISOR FILTER ASSEMBLY, VALERIE S 380.4 CERUMEN IMPACTION 04/10/2013 SALLY SUPERVISOR FILTER ASSEMBLY, VALERIE S V76.12 MAMMOGRAM SCREENING 09/09/2013 SALLY SUPERVISOR FILTER ASSEMBLY, VALERIE S 272.4 HYPERLIPIDEMIA 09/09/2013 SALLY SUPERVISOR FILTER ASSEMBLY, VALERIE S 272.4 HYPERLIPIDEMIA 09/09/2013 SALLY SUPERVISOR FILTER ASSEMBLY, VALERIE S 272.4 HYPERLIPIDEMIA 09/09/2013 SALLY SUPERVISOR FILTER ASSEMBLY, VALERIE S 272.4 HYPERLIPIDEMIA 09/09/2013 YATES DO, KARO K 272.4 HYPERLIPIDEMIA 09/09/2013 SALLY SUPERVISOR FILTER ASSEMBLY, VALERIE S 272.4 HYPERLIPIDEMIA 09/09/2013 YATES DO, KARO K 272.4 HYPERLIPIDEMIA 09/09/2013 SALLY SUPERVISOR FILTER ASSEMBLY, VALERIE S 272.4 HYPERLIPIDEMIA 09/09/2013 SALLY SUPERVISOR FILTER ASSEMBLY, VALERIE S 272.4 HYPERLIPIDEMIA 09/09/2013 SALLY SUPERVISOR FILTER ASSEMBLY, VALERIE S 272.4 HYPERLIPIDEMIA 09/09/2013 YATES DO, KARO K 272.4 HYPERLIPIDEMIA 09/09/2013 SALLY SUPERVISOR FILTER ASSEMBLY, VALERIE S 272.4 HYPERLIPIDEMIA 10/17/2013 SALLY SUPERVISOR FILTER ASSEMBLY, VALERIE S 724.5 BACK PAIN, GENERAL 10/17/2013 SALLY SUPERVISOR FILTER ASSEMBLY, VALERIE S 724.5 BACK PAIN, GENERAL 10/17/2013 SALLY SUPERVISOR FILTER ASSEMBLY, VALERIE S 724.5 BACK PAIN, GENERAL 10/17/2013 YATES DO, KARO K 724.5 BACK PAIN, GENERAL 10/17/2013 SALLY SUPERVISOR FILTER ASSEMBLY, VALERIE S 724.5 BACK PAIN, GENERAL 10/17/2013 YATES DO, KARO K 724.5 BACK PAIN, GENERAL 10/17/2013 SALLY SUPERVISOR FILTER ASSEMBLY, VALERIE S 724.5 BACK PAIN, GENERAL 10/17/2013 SALLY SUPERVISOR FILTER ASSEMBLY, VALERIE S 724.5 BACK PAIN, GENERAL 10/17/2013 SALLY SUPERVISOR FILTER ASSEMBLY, VALERIE S 724.5 BACK PAIN, GENERAL 10/17/2013 YATES DO, KARO K 724.5 BACK PAIN, GENERAL 10/17/2013 SALLY SUPERVISOR FILTER ASSEMBLY, VALERIE S 724.5 BACK PAIN, GENERAL 12/03/2013 SALLY SUPERVISOR FILTER ASSEMBLY, VALERIE S 496 COPD 12/03/2013 SALLY SUPERVISOR FILTER ASSEMBLY, VALERIE S 599.0 URINARY TRACT INFECTION 12/03/2013 SALLY SUPERVISOR FILTER ASSEMBLY, VALERIE S 788.41 URINARY FREQUENCY 12/03/2013 SALLY SUPERVISOR FILTER ASSEMBLY, VALERIE S 496 COPD 12/03/2013 SALLY SUPERVISOR FILTER ASSEMBLY, VALERIE S 599.0 URINARY TRACT INFECTION 12/03/2013 SALLY SUPERVISOR FILTER ASSEMBLY, VALERIE S 788.41 URINARY FREQUENCY 12/03/2013 YATES DO, KARO K 496 COPD 12/03/2013 YATES DO, KARO K 599.0 URINARY TRACT INFECTION 12/03/2013 YATES DO, KARO K 788.41 URINARY FREQUENCY 12/03/2013 SALLY SUPERVISOR FILTER ASSEMBLY, VALERIE S 496 COPD 12/03/2013 SALLY SUPERVISOR FILTER ASSEMBLY, VALERIE S 599.0 URINARY TRACT INFECTION 12/03/2013 SALLY SUPERVISOR FILTER ASSEMBLY, VALERIE S 788.41 URINARY FREQUENCY 12/03/2013 YATES DO, KARO K 496 COPD 12/03/2013 YATES DO, KARO K 599.0 URINARY TRACT INFECTION 12/03/2013 YATES DO, KARO K 788.41 URINARY FREQUENCY 12/03/2013 SALLY SUPERVISOR FILTER ASSEMBLY, VALERIE S 496 COPD 12/03/2013 SALLY SUPERVISOR FILTER ASSEMBLY, VALERIE S 599.0 URINARY TRACT INFECTION 12/03/2013 SALYL SUPERVISOR FILTER ASSEMBLY, VALERIE S 788.41 URINARY FREQUENCY 12/03/2013 SLALY SUPERVISOR FILTER ASSEMBLY, VALERIE S 496 COPD 12/03/2013 SALLY SUPERVISOR FILTER ASSEMBLY, VALERIE S 599.0 URINARY TRACT INFECTION 12/03/2013 SALLY SUPERVISOR FILTER ASSEMBLY, VALERIE S 788.41 URINARY FREQUENCY 12/03/2013 SALLY SUPERVISOR FILTER ASSEMBLY, VALERIE S 496 COPD 12/03/2013 SALLY SUPERVISOR FILTER ASSEMBLY, VALERIE S 599.0 URINARY TRACT INFECTION 12/03/2013 SALLY SUPERVISOR FILTER ASSEMBLY, VALERIE S 788.41 URINARY FREQUENCY 12/03/2013 YATES DO, KARO K 496 COPD 12/03/2013 YATES DO, KARO K 599.0 URINARY TRACT INFECTION 12/03/2013 YATES DO, KARO K 788.41 URINARY FREQUENCY 12/03/2013 SALLY SUPERVISOR FILTER ASSEMBLY, VALERIE S 496 COPD 12/03/2013 SALLY SUPERVISOR FILTER ASSEMBLY, VALERIE S 599.0 URINARY TRACT INFECTION 12/03/2013 SALLY SUPERVISOR FILTER ASSEMBLY, VALERIE S 788.41 URINARY FREQUENCY 01/23/2014 YATES DO, KARO K 477.0 ALLERGIC RHINITIS DUE TO POLLEN 01/23/2014 SALLY SUPERVISOR FILTER ASSEMBLY, VALERIE S 477.0 ALLERGIC RHINITIS DUE TO POLLEN 01/23/2014 YATES DO, KARO K 477.0 ALLERGIC RHINITIS DUE TO POLLEN 01/23/2014 SALLY SUPERVISOR FILTER ASSEMBLY, VALERIE S 477.0 ALLERGIC RHINITIS DUE TO POLLEN 01/23/2014 SALLY SUPERVISOR FILTER ASSEMBLY, VALERIE S 477.0 ALLERGIC RHINITIS DUE TO POLLEN 01/23/2014 SALLY SUPERVISOR FILTER ASSEMBLY, VALERIE S 477.0 ALLERGIC RHINITIS DUE TO POLLEN 01/23/2014 YATES DO, KARO K 477.0 ALLERGIC RHINITIS DUE TO POLLEN 01/23/2014 SALLY SUPERVISOR FILTER ASSEMBLY, VALERIE S 477.0 ALLERGIC RHINITIS DUE TO POLLEN 02/26/2014 MIKE NICHOLSON L Ot 564.00 UNSPEC CONSTIPATION 02/26/2014 MIKE NICHOLSON Ot 788.0 RENAL COLIC 02/26/2014 MIKE NICHOLSON L Ot 789.09 ABDOMINAL PAIN, OTHER SPECIFIED SITE 03/03/2014 SALLY SUPERVISOR FILTER ASSEMBLY, VALERIE S 592.0 CALCULUS OF KIDNEY 03/03/2014 YATES DO, KARO K 592.0 CALCULUS OF KIDNEY 03/03/2014 SALLY SUPERVISOR FILTER ASSEMBLY, VALERIE S 592.0 CALCULUS OF KIDNEY 03/03/2014 SALLY SUPERVISOR FILTER ASSEMBLY, VALERIE S 592.0 CALCULUS OF KIDNEY 03/03/2014 SALLY SUPERVISOR FILTER ASSEMBLY, VALERIE S 592.0 CALCULUS OF KIDNEY 03/03/2014 YATES DO, KARO K 592.0 CALCULUS OF KIDNEY 03/03/2014 SALLY SUPERVISOR FILTER ASSEMBLY, VALERIE S 592.0 CALCULUS OF KIDNEY 04/07/2014 YATES DO, KARO K 789.01 ABDOMINAL PAIN RIGHT UPPER QUADRANT 04/07/2014 SALLY SUPERVISOR FILTER ASSEMBLY, VALERIE S 789.01 ABDOMINAL PAIN RIGHT UPPER QUADRANT 04/07/2014 SALLY SUPERVISOR FILTER ASSEMBLY, VALERIE S 789.01 ABDOMINAL PAIN RIGHT UPPER QUADRANT 04/07/2014 SALLY SUPERVISOR FILTER ASSEMBLY, VALERIE S 789.01 ABDOMINAL PAIN RIGHT UPPER QUADRANT 04/07/2014 YATES DO, KARO K 789.01 ABDOMINAL PAIN RIGHT UPPER QUADRANT 04/07/2014 SALLY SUPERVISOR FILTER ASSEMBLY, VALERIE S 789.01 ABDOMINAL PAIN RIGHT UPPER QUADRANT 05/12/2014 VALERIE ZAVALA Ot 789.01 06/06/2014 VALERIE ZAVALA APRN S 789.09 ABDOMINAL PAIN OTHER SPECIFIED SITE 06/06/2014 YATES KARO RAMIREZ Sunshine 789.09 ABDOMINAL PAIN OTHER SPECIFIED SITE 06/06/2014 VALERIE ZAVALA APRN S 789.09 ABDOMINAL PAIN OTHER SPECIFIED SITE 06/26/2014 VALERIE ZAVALA Ot 789.09 06/27/2014 VAHE RAMIREZBALTAZAR Delia Ot 789.01 08/25/2014 VALERIE ZAVALA APRN [...] 10/29/2014 VALERIE ZAVALA Ot 382.00 10/29/2014 VALERIE ZAVALA JEWEL BEARING MAKER Ot 401.1 10/29/2014 VALERIE ZAVALAP Ot 564.1 10/29/2014 VALERIE ZAVALA JEWEL BEARING MAKER Ot 719.40 10/29/2014 VALERIE ZAVALA JEWEL BEARING MAKER Ot 786.52 10/29/2014 VALERIE ZAVALA JEWEL BEARING MAKER Ot V76.12 10/29/2014 SEDRICK DOBSON R SUPERVISOR FILTER ASSEMBLY Ot 338.4 10/29/2014 BRONSON SEDRICK R SUPERVISOR FILTER ASSEMBLY Ot 401.1 10/29/2014 SEDRICK DOBSON R SUPERVISOR FILTER ASSEMBLY Ot 564.1 10/29/2014 SEDRICK DOBSON R SUPERVISOR FILTER ASSEMBLY Ot 719.40 10/29/2014 VALERIE ZAVALA JEWEL BEARING MAKER Ot 789.01 10/29/2014 BALTAZAR COTTER DO Ot 789.01 10/29/2014 VALERIE ZAVALA JEWEL BEARING MAKER Ot 789.09 11/03/2014 DOLORES DPM, SHERI Q [...] Ot 346.90 MIGRAINE UNSPECIFIED W/O INTRACT MGRN W/ 01/10/2015 TAL ABRAMS, ALBARO P Ot 401.9 [...] TAL ABRAMS, ALBARO P Ot V57.1 01/21/2015 TAL ABRMAS, ALBARO P Ot V57.21 01/21/2015 TAL ABRAMS, [...] P Ot V72.83 02/12/2015 TAL ABRAMS, ALBARO rTaore Ot V74.8 03/31/2015 Ot 599.0 03/31/2015 Ot [...] Ot 724.2 03/31/2015 Ot 722.52 03/31/2015 VALERIE ZAVALAP Ot 053.9 03/31/2015 VALERIE ZAVALAP Ot 338.4 03/31/2015 VALERIE ZAVALAP Ot 380.4 03/31/2015 VALERIE ZAVALA JEWEL BEARING MAKER Ot 382.00 03/31/2015 VALERIE ZAVALA JEWEL BEARING MAKER Ot 401.1 03/31/2015 VALERIE ZAVALA JEWEL BEARING MAKER Ot 564.1 03/31/2015 VALERIE ZAVALA JEWEL BEARING MAKER Ot 719.40 03/31/2015 VALERIE ZAVALA JEWEL BEARING MAKER Ot 786.52 03/31/2015 VALERIE ZAVALA JEWEL BEARING MAKER Ot V76.12 03/31/2015 BRONSON SEDRICK R SUPERVISOR FILTER ASSEMBLY Ot 338.4 03/31/2015 BRONSON SEDRICK R SUPERVISOR FILTER ASSEMBLY Ot 401.1 03/31/2015 BRONSON SEDRICK R SUPERVISOR FILTER ASSEMBLY Ot 564.1 03/31/2015 BRONSON SEDRICK R SUPERVISOR FILTER ASSEMBLY Ot 719.40 03/31/2015 VALERIE ZAVALA JEWEL BEARING MAKER Ot 789.01 03/31/2015 COTTER BALTAZAR RAMIREZ Ot 789.01 03/31/2015 VALERIE ZAVALA JEWEL BEARING MAKER Ot 789.09 03/31/2015 DOLORES DPM, SHERI Q Ot 735.0 03/31/2015 DOLORES DPM, SHERI Q Ot 735.4 03/31/2015 DOLORES DPM, SHERI Q Ot V72.81 03/31/2015 DOLORES DPM, SHERI Q Ot V74.8 03/31/2015 TAL ABRAMS, ALBARO P Ot 715.36 03/31/2015 TAL ABRAMS, ALBARO P Ot 780.79 03/31/2015 TAL ABRAMS, ALBARO P Ot V57.1 03/31/2015 TAL ABRAMS, ALBARO P Ot V57.21 03/31/2015 TAL ABRAMS, ALBARO P Ot V72.63 03/31/2015 TAL ABRAMS, ALBARO P Ot V72.83 03/31/2015 TAL ABRAMS, ALBARO P Ot V74.8 04/22/2015 TAL ABRAMS, ALBARO P Ot M54.16 05/27/2015 TAL ABRAMS, ALBARO Traore Ot M54.16 10/23/2015 Ot 599.70 HEMATURIA, UNSPECIFIED 10/23/2015 Ot 722.52 LUMB/ LUMBOSAC DISC DEGEN 10/23/2015 Ot 787.91 DIARRHEA 10/23/2015 [...] FEM GENITAL SYMPTOMS NOS 10/23/2015 Ot V72.63 PRE- PROCEDURAL LABORATORY EXAMINATION 10/23/2015 Ot V72.81 EXAM-PRE- OPERATIVE CARDIOVASCULAR 10/23/2015 Ot V74.8 SCREEN- BACTERIAL DIS NEC 10/23/2015 Ot 403.90 HYPTNSV CHR KID DIS, UNSPEC, W CHR KD ST 10/23/2015 Ot 585.1 CHRONIC KIDNEY DISEASE, STAGE I 10/23/2015 Ot 729.5 PAIN IN LIMB 10/23/2015 Ot 735.0 HALLUX VALGUS 10/23/2015 Ot 735.4 OTHER HAMMER TOE 10/23/2015 Ot V72.83 EXAM PRE- OPERATIVE NEC 10/23/2015 Ot V74.8 SCREEN- BACTERIAL DIS NEC 10/23/2015 Ot 724.2 LUMBAGO 10/23/2015 Ot 722.52 LUMB/ LUMBOSAC DISC DEGEN 10/23/2015 VALERIE ZAVALAP Ot 053.9 HERPES ZOSTER NOS 10/23/2015 VALERIE ZAVALAP Ot 338.4 CHRONIC PAIN SYNDROME 10/23/2015 VALERIE ZAVALAP Ot 380.4 IMPACTED CERUMEN 10/23/2015 VALERIE ZAVLAAP Ot 382.00 AC SUPP OTITIS MEDIA NOS 10/23/2015 VALERIE ZAVALAP Ot 401.1 BENIGN HYPERTENSION 10/23/2015 VALERIE ZAVALAP Ot 564.1 IRRITABLE BOWEL SYNDROME 10/23/2015 VALERIE ZAVALAP Ot 719.40 JOINT PAIN-UNSPEC 10/23/2015 VALERIE ZAVALAP Ot 786.52 PAINFUL RESPIRATION 10/23/2015 SALLY, VALERIE JEWEL BEARING MAKER Ot V76.12 OTH SCREEN MAMMO-MALIGN NEOPLASM OF JOSIAH 10/23/2015 SEDRICK DOBSON SUPERVISOR FILTER ASSEMBLY Ot 338.4 CHRONIC PAIN SYNDROME 10/23/2015 SEDRICK DOBSON SUPERVISOR FILTER ASSEMBLY Ot 401.1 BENIGN HYPERTENSION 10/23/2015 SEDRICK DOBSON SUPERVISOR FILTER ASSEMBLY Ot 564.1 IRRITABLE BOWEL SYNDROME 10/23/2015 SEDRICK DOBSON SUPERVISOR FILTER ASSEMBLY Ot 719.40 JOINT PAIN-UNSPEC 10/23/2015 VALERIE ZAVALA JEWEL BEARING MAKER Ot 789.01 ABDOMINAL PAIN, RIGHT UPPER QUADRANT 10/23/2015 COTTER BALTAZAR RAMIREZ Delia Ot 789.01 ABDOMINAL PAIN, RIGHT UPPER QUADRANT 10/23/2015 VALERIE ZAVALA JEWEL BEARING MAKER Ot 789.09 ABDOMINAL PAIN, OTHER SPECIFIED SITE 10/23/2015 DOLORES DPM, SHERI Q Ot 735.0 HALLUX VALGUS 10/23/2015 DOLORES DPM, SHERI Q Ot 735.4 OTHER HAMMER TOE 10/23/2015 DOLORES DPM, SHERI Q Ot V72.81 [id number] CARDIOVASCULAR 10/23/2015 DOLORES DPM, SHERI Q Ot V74.8 SCREEN-BACTERIAL DIS NEC 10/23/2015 TAL ABRAMS, ALBARO Traore Ot 715.36 LOC OSTEOARTH NOS-L/LEG 10/23/2015 TAL ABRAMS, ALBARO Traore Ot 780.79 OTH MALAISE FATIGUE 10/23/2015 ALBARO PARADA MD Ot V57.1 PHYSICAL THERAPY NEC 10/23/2015 TAL ABRAMS, ALBARO Traore Ot V57.21 ENCOUNTER FOR OCCUPATIONAL THERAPY 10/23/2015 ALBARO PARADA MD Ot V72.63 PRE-PROCEDURAL LABORATORY EXAMINATION 10/23/2015 ALBARO PARADA MD Ot V72.83 EXAM PRE-OPERATIVE NEC 10/23/2015 ALBARO PARADA MD Ot V74.8 SCREEN-BACTERIAL DIS NEC 10/23/2015 ALBARO PARADA MD Ot M54.16 RADICULOPATHY, LUMBAR REGION 10/23/2015 MECHELLE ABRAMS, MIKAELA Gonsalez Ot F17.210 NICOTINE DEPENDENCE, CIGARETTES, UNCOMPL 10/23/2015 MECHELLE ABRAMS, MIKAELA Gonsalez Ot K58.9 IRRITABLE BOWEL SYNDROME WITHOUT DIARRHE 10/23/2015 MIKAELA MIN MD Ot R10.30 LOWER ABDOMINAL PAIN, UNSPECIFIED 2015 MIKAELA MIN MD Ot F17.210 NICOTINE DEPENDENCE, CIGARETTES, UNCOMPL 2015 MIKAELA MIN MD Ot K58.9 IRRITABLE BOWEL SYNDROME WITHOUT DIARRHE 2015 MIKAELA MIN MD Ot R10.30 LOWER ABDOMINAL PAIN, UNSPECIFIED 2015 SALLYVALERIE FERGUSON JEWEL BEARING MAKER Ot R10.11 RIGHT UPPER QUADRANT PAIN 11/12/2015 VALERIE ZAVALA JEWEL BEARING MAKER Ot R10.11 RIGHT UPPER QUADRANT PAIN 11/19/2015 VALERIE ZAVALA JEWEL BEARING MAKER Ot R10.11 RIGHT UPPER QUADRANT PAIN 05/29/2016 [...] FEM GENITAL SYMPTOMS NOS 06/02/2016 Ot V72.63 PRE- PROCEDURAL LABORATORY EXAMINATION 06/02/2016 Ot V72.81 EXAM-PRE- OPERATIVE CARDIOVASCULAR 06/02/2016 Ot V74.8 SCREEN- BACTERIAL DIS NEC 06/02/2016 Ot 403.90 HYPTNSV CHR KID DIS, UNSPEC, W CHR KD ST 06/02/2016 Ot 585.1 CHRONIC KIDNEY DISEASE, STAGE I 06/02/2016 Ot 729.5 PAIN IN LIMB 06/02/2016 Ot 735.0 HALLUX VALGUS 06/02/2016 Ot 735.4 OTHER HAMMER TOE 06/02/2016 Ot V72.83 EXAM PRE- OPERATIVE NEC 06/02/2016 Ot V74.8 SCREEN- BACTERIAL DIS NEC 06/02/2016 Ot 724.2 LUMBAGO 06/02/2016 Ot 722.52 LUMB/ LUMBOSAC DISC DEGEN 06/02/2016 VALERIE ZAVALA JEWEL BEARING MAKER Ot 053.9 HERPES ZOSTER NOS 06/02/2016 VALERIE ZAVALA JEWEL BEARING MAKER Ot 338.4 CHRONIC PAIN SYNDROME 06/02/2016 VALERIE ZAVALA JEWEL BEARING MAKER Ot 380.4 IMPACTED CERUMEN 06/02/2016 VALERIE ZAVALA JEWEL BEARING MAKER Ot 382.00 AC SUPP OTITIS MEDIA NOS 06/02/2016 VALERIE ZAVALA JEWEL BEARING MAKER Ot 401.1 BENIGN HYPERTENSION 06/02/2016 VALERIE ZAVALAP Ot 564.1 IRRITABLE BOWEL SYNDROME 06/02/2016 VALERIE ZAVALAP Ot 719.40 JOINT PAIN-UNSPEC 06/02/2016 VALERIE ZAVALAP Ot 786.52 PAINFUL RESPIRATION 06/02/2016 VALERIE ZAVALAP Ot V76.12 OTH SCREEN MAMMO-MALIGN NEOPLASM OF [place] 06/02/2016 SEDRICK DOBSON SUPERVISOR FILTER ASSEMBLY Ot 338.4 CHRONIC PAIN SYNDROME 06/02/2016 SEDRICK DOBSON SUPERVISOR FILTER [employer]SEMBLY Ot 401.1 BENIGN HYPERTENSION 06/02/2016 ESDRICK DOBSON SUPERVISOR FILTER ASSEMBLY Ot 564.1 IRRITABLE BOWEL SYNDROME 06/02/2016 SEDRICK DOBSON SUPERVISOR FILTER ASSEMBLY Ot 719.40 JOINT PAIN-UNSPEC 06/02/2016 VALERIE ZAVALA Ot 789.01 ABDOMINAL PAIN, RIGHT UPPER QUADRANT 06/02/2016 BALTAZAR COTTER DO Ot 789.01 ABDOMINAL PAIN, RIGHT UPPER QUADRANT 06/02/2016 VALERIE ZAVALA Ot 789.09 ABDOMINAL PAIN, OTHER SPECIFIED SITE 06/02/2016 DOLORES DPM, SHERI Q Ot 735.0 HALLUX VALGUS 06/02/2016 DOLORES DPM, SHERI Q Ot 735.4 OTHER HAMMER TOE 06/02/2016 DOLORES DPM, SHERI Q Ot V72.81 [id number] CARDIOVASCULAR 06/02/2016 DOLORES DPM, SHERI Q Ot V74.8 SCREEN-BACTERIAL DIS NEC 06/02/2016 ALBARO PARADA MD Ot 715.36 LOC OSTEOARTH NOS-L/LEG 06/02/2016 ALBARO PARADA MD Ot 780.79 OTH MALAISE FATIGUE 06/02/2016 ALBARO PARADA MD Ot V57.1 PHYSICAL THERAPY NEC 06/02/2016 ALBARO PARADA MD Ot V57.21 ENCOUNTER FOR OCCUPATIONAL THERAPY 06/02/2016 ALBARO PARADA MD Ot V72.63 PRE-PROCEDURAL LABORATORY EXAMINATION 06/02/2016 ALBARO PARADA MD Ot V72.83 EXAM PRE-OPERATIVE NEC 06/02/2016 ALBARO PARADA MD Ot V74.8 SCREEN-BACTERIAL DIS NEC 06/02/2016 ALBARO PARADA MD Ot M54.16 RADICULOPATHY, LUMBAR REGION 06/02/2016 VALERIE ZAVALA Ot R10.11 RIGHT UPPER QUADRANT PAIN 06/03/2016 RASISA FUENTES MD Ot D72.829 ELEVATED WHITE BLOOD [...] URINARY TRACT INFECTION, SITE NOT SPECIF 06/06/2016 RAISSA FUENTES MD Ot R09.02 HYPOXEMIA 06/06/2016 RAISSA FUENTES MD Ot R63.4 ABNORMAL WEIGHT LOSS 06/06/2016 RAISSA FUENTES MD Ot Z96.651 PRESENCE OF RIGHT ARTIFICIAL KNEE JOINT 06/25/2016 ANDREW KANG JEWEL BEARING MAKER Ot I10 ESSENTIAL (PRIMARY) HYPERTENSION 06/25/2016 ANDREW KANGP Ot J44.9 CHRONIC OBSTRUCTIVE PULMONARY DISEASE, U 06/25/2016 PEARL, ANDREW JEWEL BEARING MAKER Ot N39.0 URINARY TRACT INFECTION, SITE NOT SPECIF 06/25/2016 PEARL, ANDREW JEWEL BEARING MAKER Ot R30.0 DYSURIA 06/28/2016 PEARL ANDREW JEWEL BEARING MAKER Ot I10 ESSENTIAL (PRIMARY) HYPERTENSION 06/28/2016 PEARL ANDREW JEWEL BEARING MAKER Ot J44.9 CHRONIC OBSTRUCTIVE PULMONARY DISEASE, U 06/28/2016 PEARL, ANDREW JEWEL BEARING MAKER Ot N39.0 URINARY TRACT INFECTION, SITE NOT SPECIF 06/28/2016 PEARL ANDREW JEWEL BEARING MAKER Ot R30.0 DYSURIA 07/08/2016 BINU JAVIER MD Ot I10 ESSENTIAL (PRIMARY) HYPERTENSION 07/08/2016 BINU JAVIER MD T Ot J44.9 CHRONIC OBSTRUCTIVE PULMONARY DISEASE, U 07/08/2016 BINU JAVIER MD T Ot N32.89 OTHER SPECIFIED DISORDERS OF BLADDER 07/08/2016 BINU JAVIER MD Ot N39.0 URINARY TRACT INFECTION, SITE NOT SPECIF 07/08/2016 BINU JAVIER MD Ot R30.0 DYSURIA 07/08/2016 BINU JAVIER MD Ot Z79.899 OTHER SENIOR SALESFORCE DEVELOPER (CURRENT) DRUG THERAPY 07/11/2016 BINU JAVIER MD Ot I10 ESSENTIAL (PRIMARY) HYPERTENSION 07/11/2016 BINU JAVIER MD Ot J44.9 CHRONIC OBSTRUCTIVE PULMONARY DISEASE, U 07/11/2016 BINU JAVIER MD Ot N32.89 OTHER SPECIFIED DISORDERS OF BLADDER 07/11/2016 BINU JAVIER MD Ot N39.0 URINARY TRACT INFECTION, SITE NOT SPECIF 07/11/2016 BINU JAVIER MD Ot R30.0 DYSURIA 07/11/2016 BINU JAVIER MD T Ot Z79.899 OTHER SENIOR SALESFORCE DEVELOPER (CURRENT) DRUG THERAPY 07/13/2016 BINU JAVIER MD Ot I10 ESSENTIAL (PRIMARY) HYPERTENSION 07/13/2016 BINU JAVIER MD Ot J44.9 CHRONIC OBSTRUCTIVE PULMONARY DISEASE, U 07/13/2016 BINU JAVIER MD T Ot N32.89 OTHER SPECIFIED DISORDERS OF BLADDER 07/13/2016 BINU JAVIER MD Ot N39.0 URINARY TRACT INFECTION, SITE NOT SPECIF 07/13/2016 BINU JAVIER MD Ot R30.0 DYSURIA 07/13/2016 BINU JAVIER MD T Ot Z79.899 OTHER SENIOR SALESFORCE DEVELOPER (CURRENT) DRUG THERAPY 08/21/2016 LORETO TIPTON DO [...] SAEED DO, LORETO K Ot Z79.899 OTHER LONG-TERM (CURRENT) DRUG THERAPY 08/23/2016 SAEED DO, LORETO [...] SAEED DO, LORETO K Ot Z79.899 OTHER LONG-TERM (CURRENT) DRUG THERAPY 09/18/2016 THANH MAO MD J Ot F17.210 NICOTINE DEPENDENCE, CIGARETTES, UNCOMPL 09/18/2016 THANH MAO MD J Ot I10 ESSENTIAL (PRIMARY) HYPERTENSION 09/18/2016 THANH MAO MD Ot J44.9 CHRONIC OBSTRUCTIVE PULMONARY DISEASE, U 09/18/2016 THANH MAO MD J Ot R10.31 RIGHT LOWER QUADRANT PAIN 09/18/2016 THANH MAO MD J Ot R11.2 NAUSEA WITH VOMITING, UNSPECIFIED 09/21/2016 THANH MAO MD J Ot F17.210 NICOTINE DEPENDENCE, CIGARETTES, UNCOMPL 09/21/2016 THANH MAO MD J Ot I10 ESSENTIAL (PRIMARY) HYPERTENSION 09/21/2016 THANH MAO MD Ot J44.9 CHRONIC OBSTRUCTIVE PULMONARY DISEASE, U 09/21/2016 THANH MAO MD J Ot R10.31 RIGHT LOWER QUADRANT PAIN 09/21/2016 THANH MAO MD J Ot R11.2 NAUSEA WITH VOMITING, UNSPECIFIED 10/20/2016 THANH MAO MD J Ot F17.210 NICOTINE DEPENDENCE, CIGARETTES, UNCOMPL 10/20/2016 MAYCO MD, THANH J Ot I10 ESSENTIAL (PRIMARY) HYPERTENSION 10/20/2016 MAYCO ABRAMS, THANH June Ot J44.9 CHRONIC OBSTRUCTIVE PULMONARY DISEASE, U 10/20/2016 MAYCO ABRAMS, THANH June Ot R10.31 RIGHT LOWER QUADRANT PAIN 10/20/2016 MAYCO ABRAMS, THANH J Ot R11.2 NAUSEA WITH VOMITING, UNSPECIFIED 02/09/2017 SEDRICK DOBSON R SUPERVISOR FILTER ASSEMBLY Ot R10.31 RIGHT LOWER QUADRANT PAIN 02/28/2017 BRONSON SEDRICK R SUPERVISOR FILTER ASSEMBLY Ot R10.31 RIGHT LOWER QUADRANT PAIN 03/10/2017 BRONSON SEDRICK R SUPERVISOR FILTER ASSEMBLY Ot R10.31 RIGHT LOWER QUADRANT PAIN 05/17/2017 ADRIAN ZAVALAA JEWEL BEARING MAKER Ot N20.0 CALCULUS OF KIDNEY 05/17/2017 ADRIAN ZAVALAA JEWEL BEARING MAKER Ot R91.8 OTHER NONSPECIFIC ABNORMAL FINDING OF DAVID 06/02/2017 ADRIAN ZAVALAA JEWEL BEARING MAKER Ot R31.9 HEMATURIA, UNSPECIFIED 06/02/2017 ADRIAN ZAVALAA JEWEL BEARING MAKER Ot Z87.442 PERSONAL HISTORY OF URINARY CALCULI 06/07/2017 ADRIAN ZAVALAA JEWEL BEARING MAKER Ot R31.9 HEMATURIA, UNSPECIFIED 06/07/2017 SALLY, VALERIE JEWEL BEARING MAKER Ot Z87.442 PERSONAL HISTORY OF URINARY CALCULI 06/13/2017 ADRIAN ZAVALAA JEWEL BEARING MAKER Ot N20.0 CALCULUS OF KIDNEY 06/13/2017 SALLYADRIAN FERGUSONA JEWEL BEARING MAKER Ot R91.8 OTHER NONSPECIFIC ABNORMAL FINDING OF DAVID 06/16/2017 ADRIAN ZAVALAA JEWEL BEARING MAKER Ot N20.0 CALCULUS OF KIDNEY 06/16/2017 ADRIAN ZAVALAA JEWEL BEARING MAKER Ot R91.8 OTHER NONSPECIFIC ABNORMAL FINDING OF DAVID 06/23/2017 ADRIAN ZAVALAA JEWEL BEARING MAKER Ot R31.9 HEMATURIA, UNSPECIFIED 06/23/2017 ADRIAN ZAVALAA JEWEL BEARING MAKER Ot Z87.442 PERSONAL HISTORY OF URINARY CALCULI 07/21/2017 ADRIAN ZAVALAA JEWEL BEARING MAKER Ot R31.9 HEMATURIA, UNSPECIFIED 07/21/2017 ADRIAN ZAVALAA JEWEL BEARING MAKER Ot Z87.442 PERSONAL HISTORY OF URINARY CALCULI 08/28/2017 ENRIQUETA ABRAMS, AUDIE Johnson Ot K21.9 GASTRO-ESOPHAGEAL REFLUX DISEASE WITHOUT 08/28/2017 ENRIQUETA ABRAMS, AUDIE Johnson Ot R63.4 ABNORMAL WEIGHT LOSS 08/28/2017 ENRIQUETA ABRAMS, AUDIE Johnson Ot Z01.818 ENCOUNTER FOR OTHER PREPROCEDURAL EXAMIN 08/30/2017 ENRIQUETA ABRAMS, AUDIE Johnson Ot K21.9 GASTRO-ESOPHAGEAL REFLUX DISEASE WITHOUT 08/30/2017 ENRIQUETA ABRAMS, AUDIE Johnson Ot R63.4 ABNORMAL WEIGHT LOSS 08/30/2017 ENRIQUETA ABRAMS, AUDIE Johnson Ot Z01.818 ENCOUNTER FOR OTHER PREPROCEDURAL EXAMIN 09/01/2017 Ot 724.2 LUMBAGO 09/01/2017 Ot 722.52 LUMB/ LUMBOSAC DISC DEGEN 09/01/2017 VALERIE ZAVALA JEWEL BEARING MAKER Ot 053.9 HERPES ZOSTER NOS 09/01/2017 VALERIE ZAVALA JEWEL BEARING MAKER Ot 338.4 CHRONIC PAIN SYNDROME 09/01/2017 VALERIE ZAVALA JEWEL BEARING MAKER Ot 380.4 IMPACTED CERUMEN 09/01/2017 VALERIE ZAVALA JEWEL BEARING MAKER Ot 382.00 AC SUPP OTITIS MEDIA NOS 09/01/2017 VALERIE ZAVALA JEWEL BEARING MAKER Ot 401.1 BENIGN HYPERTENSION 09/01/2017 VALERIE ZAVALA JEWEL BEARING MAKER Ot 564.1 IRRITABLE BOWEL SYNDROME 09/01/2017 VALERIE ZAVALA JEWEL BEARING MAKER Ot 719.40 JOINT PAIN-UNSPEC 09/01/2017 VALERIE ZAVALA JEWEL BEARING MAKER Ot 786.52 PAINFUL RESPIRATION 09/01/2017 VALERIE ZAVALA JEWEL BEARING MAKER Ot V76.12 OTH SCREEN MAMMO-MALIGN NEOPLASM OF JOSIAH 09/01/2017 SEDRICK DOBSON SUPERVISOR FILTER ASSEMBLY Ot 338.4 CHRONIC PAIN SYNDROME 09/01/2017 SEDRICK DOBSON SUPERVISOR FILTER ASSEMBLY Ot 401.1 BENIGN HYPERTENSION 09/01/2017 SEDRICK DOBSON SUPERVISOR FILTER ASSEMBLY Ot 564.1 IRRITABLE BOWEL SYNDROME 09/01/2017 SEDRICK DOBSON SUPERVISOR FILTER ASSEMBLY Ot 719.40 JOINT PAIN-UNSPEC 09/01/2017 VALERIE ZAVALA JEWEL BEARING MAKER Ot 789.01 ABDOMINAL PAIN, RIGHT UPPER QUADRANT 09/01/2017 BALTAZAR COTTER DO Ot 789.01 ABDOMINAL PAIN, RIGHT UPPER QUADRANT 09/01/2017 VALERIE ZVAALAP Ot 789.09 ABDOMINAL PAIN, OTHER SPECIFIED SITE 09/01/2017 DOLORES DPM, SHERI Q Ot 735.0 HALLUX VALGUS 09/01/2017 DOLORES DPM, SHERI Q Ot 735.4 OTHER HAMMER TOE 09/01/2017 DOLORES DPM, SHERI Q Ot V72.81 [id number] CARDIOVASCULAR 09/01/2017 DOLORES DPM, SHERI Q Ot V74.8 SCREEN-BACTERIAL DIS NEC 09/01/2017 TAL ABRAMS, ALBARO Traore Ot 715.36 LOC OSTEOARTH NOS-L/LEG 09/01/2017 TAL ABRAMS, ALBARO Traore Ot 780.79 OTH MALAISE FATIGUE 09/01/2017 ALBARO PARADA MD Ot V57.1 PHYSICAL THERAPY NEC 09/01/2017 ALBARO PARADA MD Ot V57.21 ENCOUNTER FOR OCCUPATIONAL THERAPY 09/01/2017 ALBARO PARADA MD Ot V72.63 PRE-PROCEDURAL LABORATORY EXAMINATION 09/01/2017 ALBARO PARADA MD Ot V72.83 EXAM PRE-OPERATIVE NEC 09/01/2017 ALBARO PARADA MD Ot V74.8 SCREEN-BACTERIAL DIS NEC 09/01/2017 TAL ABRAMS, ALBARO Traore Ot M54.16 RADICULOPATHY, LUMBAR REGION 09/01/2017 VALERIE ZAVALA Ot R10.11 RIGHT UPPER QUADRANT PAIN 09/01/2017 ENRIQUETA ABRAMS, AUDIE Johnson Ot K21.9 GASTRO-ESOPHAGEAL REFLUX DISEASE WITHOUT 09/01/2017 ENRIQUETA ABRAMS, AUDIE Johnson Ot R63.4 ABNORMAL WEIGHT LOSS 09/01/2017 ENRIQUETA ABRAMS, AUDIE Johnson Ot Z01.818 ENCOUNTER FOR OTHER PREPROCEDURAL EXAMIN 09/01/2017 SEDRICK DOBSON SUPERVISOR FILTER ASSEMBLY Ot R10.31 RIGHT LOWER QUADRANT PAIN 09/01/2017 VALERIE ZAVALAP Ot N20.0 CALCULUS OF KIDNEY 09/01/2017 VALERIE ZAVALA Ot R91.8 OTHER NONSPECIFIC ABNORMAL FINDING OF DAVID 09/01/2017 VALERIE ZAVALAP Ot R31.9 HEMATURIA, UNSPECIFIED 09/01/2017 VALERIE ZAVALAP Ot Z87.442 PERSONAL HISTORY OF URINARY CALCULI 09/21/2017 SALLY, VALERIE JEWEL BEARING MAKER Ot Z12.31 ENCNTR SCREEN MAMMOGRAM FOR MALIGNANT NE 09/22/2017 SALLYSERINAVALERIE JEWEL BEARING MAKER Ot Z12.31 ENCNTR SCREEN MAMMOGRAM FOR MALIGNANT NE 09/27/2017 VALERIE ZAVALA Ot Z12.31 ENCNTR SCREEN MAMMOGRAM FOR MALIGNANT NE 10/05/2017 CYDNEY ANDERSON APRN Ot F32.9 MAJOR DEPRESSIVE DISORDER, SINGLE EPISOD 10/05/2017 CYDNEY ANDERSON APRN Ot F41.9 ANXIETY DISORDER, UNSPECIFIED 10/05/2017 CYDNEY ANDERSON APRN Ot F43.10 POST-TRAUMATIC STRESS DISORDER, UNSPECIF 10/05/2017 CYDNEY ANDERSON APRN Ot G43.909 MIGRAINE, UNSP, NOT INTRACTABLE, WITHOUT 10/05/2017 CYDNEY ANDERSON APRN Ot I10 ESSENTIAL (PRIMARY) HYPERTENSION 10/05/2017 CYDNEY ANDERSON APRN, Ot J44.9 CHRONIC OBSTRUCTIVE PULMONARY DISEASE, U 10/05/2017 CYDNEY ANDERSON APRN Ot K21.9 GASTRO-ESOPHAGEAL REFLUX DISEASE WITHOUT 10/05/2017 CYDNEY ANDERSON APRN Ot M25.561 PAIN IN RIGHT KNEE 10/05/2017 CYDNEY ANDERSON APRN Ot M81.0 AGE-RELATED OSTEOPOROSIS W/O CURRENT PAT 10/05/2017 CYDNEY ANDERSON APRN Ot S80.01XA CONTUSION OF RIGHT KNEE, INITIAL ENCOUNT 10/05/2017 CYDNEY ANDERSON APRN Ot W18.31XA FALL ON SAME LEVEL DUE TO STEPPING ON AN 10/05/2017 CYDNEY ANDERSON APRN Ot Z79.51 LONG-TERM (CURRENT) USE OF INHALED STERO 10/05/2017 CYDNEY ANDERSON APRN Ot Z82.49 FAMILY HX OF ISCHEM HEART DIS AND OTH DI 10/05/2017 CYDNEY ANDERSON APRN Ot Z87.19 PERSONAL HISTORY OF OTHER DISEASES OF TH 10/05/2017 CYDNEY ANDERSON APRN Ot Z87.440 PERSONAL HISTORY OF URINARY (TRACT) INFE 10/05/2017 CYDNEY ANDERSON APRN Ot Z87.59 PERSONAL HISTORY OF COMP OF PREG, CHLDBR 10/05/2017 CYDNEY ANDERSON APRN Ot Z88.2 ALLERGY STATUS TO SULFONAMIDES STATUS 10/05/2017 CYDNEY ANDERSON APRN Ot Z88.8 ALLERGY STATUS TO OTH DRUG/MEDS/BIOL SUB 10/05/2017 CYDNEY ANDERSON APRN Ot Z90.710 ACQUIRED ABSENCE OF BOTH CERVIX AND UTER 10/05/2017 CYDNEY ANDERSON APRN Ot Z90.89 ACQUIRED ABSENCE OF OTHER ORGANS 10/11/2017 SALLYSERINAVALERIE ALINA Ot Z12.31 ENCNTR SCREEN MAMMOGRAM FOR MALIGNANT NE Procedures Code [place] [address] XRAY FOOT LEFT 2 VIEWS 03/16/2012 32109 INJ TENDON SHEATH/LIGAMENT 06/29/2012 75254 XRAY FOOT RIGHT 2 VIEWS 06/29/2012 90986 XRAY FOOT LEFT 2 VIEWS 06/29/2012 90817 MRI SPINE (LUMBAR) W/O CONTRAST 07/05/2012 12376 CULTURE URINE 08/01/2012 21601 ROUTINE VENIPUNCTURE 02/04/2013 58264 URINE DRUG SCREEN (IN-HOUSE ) 02/04/2013 96489 CBC 02/04/2013 97048 CMP 02/04/2013 26407 URIC ACID 02/04/2013 00453 LIPID PANEL 02/04/2013 8293551 GFR CALC (RESULT ONLY) 02/04/2013 85978 CRP 02/04/2013 29544 ESR/SED RATE 02/04/2013 94409 ASO 02/05/2013 59210 RA FACTOR 02/05/2013 ANAANA PEMA ANALYZER (SCREEN) 02/05/2013 G0008 FLU ADMINISTRATION ( MEDICARE ONLY) 02/17/2013 18286 XRAY CHEST 2 VIEW 04/10/2013 27842 MAMMOGRAM, SCREENING 05/07/2013 99371 URINE DRUG SCREEN (IN-HOUSE ) 06/04/2013 84882 US RENAL ARTERY DOPPLER 09/12/2013 16029 XRAY S-C JOINTS 2 OR MORE VIEWS 10/17/2013 12432 XRAY PELVIS 1 OR 2 VIEWS 10/17/2013 Physical Physical Therapy, [address] 10/17/2013 36091 ROUTINE VENIPUNCTURE 02/18/2014 2930063 GFR CALC (RESULT ONLY) 02/18/2014 62750 CMP 02/18/2014 43438 LIPID PANEL 02/18/2014 Urology Frank Cole 03/03/2014 30366 UA W/ CULTURE IF INDICATED 04/07/2014 73872 US GALLBLADDER ULTRASOUND 04/07/2014 62937 HIDA SCAN 04/07/2014 General S Baltazar Cotter 04/29/2014 20959 UA LONG DIP 05/31/2014 45315 ROUTINE VENIPUNCTURE 06/04/2014 7550314 GFR CALC (RESULT ONLY) 06/04/2014 05422 CMP 06/04/2014 36855 CBC 06/04/2014 58462 CELIAC DISEASE ANALYZER 06/06/2014 61384 N-METHYLHISTAMINE, 24HR URINE 06/19/2014 70930 XRAY KNEE RIGHT 3 VIEWS 08/25/2014 Albaro Dominguez 08/30/2014 81.54 TOTAL KNEE REPLACEMENT 01/07/2015 Results Test Result Range Basic Metabolic Panel (8) - 05/02/16 14:57 Glucose, Serum 99 mg/dL 65-99 BUN 7 mg/dL 8-27 Creatinine, Serum 0.89 mg/dL 0.57-1.00 eGFR If NonAfricn Am 68 mL/min/1.73 >59 eGFR If Africn Am 78 mL/min/1.73 >59 BUN/Creatinine Ratio 8 11-26 Sodium, Serum 140 mmol/L 134-144 Potassium, Serum 3.3 mmol/L 3.5-5.2 Chloride, Serum 99 mmol/L 96-106 Carbon Dioxide, Total 28 mmol/L 18-29 Calcium, Serum 9.2 mg/dL 8.7-10.3 Complete blood count (CBC) with automated white blood cell (WBC) differential - 05/29/16 16:50 Blood leukocytes automated count (number/volume) 6.7 10*3/uL 4.3-11.0 Blood erythrocytes automated count (number/volume) 3.94 10*6/uL 4.35-5.85 Venous blood hemoglobin measurement (mass/volume) 12.6 [...] Automated blood platelet mean volume measurement 8.4 [foz_us] 7.4-10.4 Automated blood neutrophils/100 leukocytes 74 % [...] Serum or plasma sodium measurement (moles/volume) 127 mmol/L 135-145 Serum or plasma potassium measurement (moles/volume) 4.4 mmol/L 3.6-5.0 Serum or plasma chloride measurement (moles/volume) 99 mmol/L 98-107 Carbon dioxide 16 mmol/L 21-32 Serum or plasma anion gap determination (moles/volume) 12 mmol/L 5-14 Serum or plasma urea nitrogen measurement (mass/volume) 13 mg/dL 7-18 Serum or plasma creatinine measurement (mass/volume) 1.11 mg/dL 0.60-1.30 Serum or plasma urea nitrogen/creatinine mass [...] - 05/29/16 17:02 Bacterial blood culture NG NRG Complete blood count (CBC) with automated white blood cell (WBC) differential - 06/02/16 13:36 Blood leukocytes automated count (number/volume) 13.3 10*3/uL 4.3-11.0 Blood erythrocytes automated count (number/volume) 4.39 10*6/uL 4.35-5.85 Venous blood hemoglobin measurement (mass/volume) 13.9 [...] Automated blood platelet mean volume measurement 8.2 [foz_us] 7.4-10.4 Automated blood neutrophils/100 leukocytes 87 % [...] Serum or plasma sodium measurement (moles/volume) 128 mmol/L 135-145 Serum or plasma potassium measurement (moles/volume) 4.7 mmol/L 3.6-5.0 Serum or plasma chloride measurement (moles/volume) 98 mmol/L 98-107 Carbon dioxide 17 mmol/L 21-32 Serum or plasma anion gap determination (moles/volume) 13 mmol/L 5-14 Serum or plasma urea nitrogen measurement (mass/volume) 28 mg/dL 7-18 Serum or plasma creatinine measurement (mass/volume) 1.18 mg/dL 0.60-1.30 Serum or plasma urea nitrogen/creatinine mass [...] Urine pH measurement by test strip 6.5 5-9 Specific gravity of urine by test strip 1.015 1.016- 1.022 Urine protein assay by test strip, semi-quantitative [...] 17:06 Urine chloride measurement (moles/volume) 47 mmol/L 110- 250 Bacterial urine culture - 06/02/16 17:06 Bacterial urine culture [id number] NRG COLONY COUNT >100,000/ML NRG FTX;REPORTABLE SENSITIVITY REPORTED 06/03 16:25 NR Bacterial susceptibility panel - 06/02/16 17:06 Gentamicin susceptibility test by minimum inhibitory concentration < = NRG Trimethoprim/sulfamethoxazole susceptibility test by minimum inhibitoryconcentration >= NRG Ampicillin susceptibility test by minimum inhibitory concentration > = NRG Tobramycin susceptibility test by minimum inhibitory concentration < = NRG Cefazolin susceptibility test by minimum inhibitory concentration < = NRG Ceftriaxone susceptibility test by minimum inhibitory concentration <= NRG Ampicillin/sulbactam susceptibility test by minimum inhibitory concentration 4 NRG Piperacillin/tazobactam susceptibility test by minimum inhibitory concentration <= NRG Ciprofloxacin susceptibility test by minimum inhibitory concentration 1 NRG Meropenem susceptibility test by minimum inhibitory concentration < = NRG Nitrofurantoin susceptibility test by minimum inhibitory concentration <= NRG Aztreonam susceptibility test by minimum inhibitory concentration < = NRG Extended spectrum beta lactamase (ESBL) producing bacteria susceptibility test by minimum inhibitory concentration - NR Urine osmolality - 06/02/16 17:06 Urine osmolality 400 % 250-1200 Complete blood count (CBC) with automated white blood cell (WBC) differential - 06/03/16 10:04 Blood leukocytes automated count (number/volume) 8.5 10*3/uL 4.3-11.0 Blood erythrocytes automated count (number/volume) 3.43 10*6/uL 4.35-5.85 Venous blood hemoglobin measurement (mass/volume) 10.9 [...] Automated blood platelet mean volume measurement 8.4 [foz_us] 7.4-10.4 Automated blood neutrophils/100 leukocytes 89 % [...] Serum or plasma sodium measurement (moles/volume) 128 mmol/L 135-145 Serum or plasma potassium measurement (moles/volume) 4.3 mmol/L 3.6-5.0 Serum or plasma chloride measurement (moles/volume) 103 mmol/L 98-107 Carbon dioxide 17 mmol/L 21-32 Serum or plasma anion gap determination (moles/volume) 8 mmol/L 5-14 Serum or plasma urea nitrogen measurement (mass/volume) 19 mg/dL 7-18 Serum or plasma creatinine measurement (mass/volume) 0.98 mg/dL 0.60-1.30 Serum or plasma urea nitrogen/creatinine mass [...] Urine pH measurement by test strip 6.5 5-9 Specific gravity of urine by test strip 1.010 1.016- 1.022 Urine protein assay by test strip, semi-quantitative [...] Complete urinalysis with reflex to culture YES NR Bacterial urine culture - 06/25/16 13:40 Bacterial urine culture [id number] NRG COLONY COUNT 10,000/ML - 100,000/ML NRG FTX;REPORTABLE SENSITIVITIES REPORTED AT 0849, 2- NR URINE CULTURE RESULTS PLUS NR Bacterial susceptibility panel - 06/25/16 13:40 Gentamicin susceptibility test by minimum inhibitory concentration < = NRG Trimethoprim/sulfamethoxazole susceptibility test by minimum inhibitoryconcentration >= NRG Ampicillin susceptibility test by minimum inhibitory concentration > = NRG Tobramycin susceptibility test by minimum inhibitory concentration < = NRG Cefazolin susceptibility test by minimum inhibitory concentration < = NRG Ceftriaxone susceptibility test by minimum inhibitory concentration <= NRG Ampicillin/sulbactam susceptibility test by minimum inhibitory concentration 4 NRG Piperacillin/tazobactam susceptibility test by minimum inhibitory concentration <= NRG Ciprofloxacin susceptibility test by minimum inhibitory concentration 1 NRG Meropenem susceptibility test by minimum inhibitory concentration < = NRG Nitrofurantoin susceptibility test by minimum inhibitory concentration <= NRG Aztreonam susceptibility test by minimum inhibitory concentration < = NRG Extended spectrum beta lactamase (ESBL) producing bacteria susceptibility test by minimum inhibitory concentration - [facility] Bacterial susceptibility panel - 06/25/16 13:40 Gentamicin susceptibility test by minimum inhibitory concentration < = NRG Trimethoprim/sulfamethoxazole susceptibility test by minimum inhibitoryconcentration <= NRG Ampicillin susceptibility test by minimum inhibitory concentration < = NRG Tobramycin susceptibility test by minimum inhibitory concentration < = NRG Cefazolin susceptibility test by minimum inhibitory concentration < = NRG Ceftriaxone susceptibility test by minimum inhibitory concentration <= NRG Ampicillin/sulbactam susceptibility test by minimum inhibitory concentration <= NRG Piperacillin/tazobactam susceptibility test by minimum inhibitory concentration <= NRG Ciprofloxacin susceptibility test by minimum inhibitory concentration <= NRG Meropenem susceptibility test by minimum inhibitory concentration < = NRG Nitrofurantoin susceptibility test by minimum inhibitory concentration 128 NRG Aztreonam susceptibility test by minimum inhibitory concentration < = NRG Complete urinalysis with reflex to culture - 07/08/16 16:35 Urine color determination YELLOW NRG Urine clarity determination CLEAR NRG Urine pH measurement by test strip 6 5-9 Specific gravity of urine by test strip 1.010 1.016- 1.022 Urine protein assay by test strip, semi-quantitative [...] culture - 07/08/16 16:35 Bacterial urine culture [id number] NRG COLONY COUNT >100,000/ML NRG FTX;REPORTABLE SENSITIVITY REPORTED 07/10 07:55 [facility] Bacterial susceptibility panel - 07/08/16 16:35 Gentamicin susceptibility test by minimum inhibitory concentration < = NRG Trimethoprim/sulfamethoxazole susceptibility test by minimum inhibitoryconcentration >= NRG Ampicillin susceptibility test by minimum inhibitory concentration > = NRG Tobramycin susceptibility test by minimum inhibitory concentration < = NRG Cefazolin susceptibility test by minimum inhibitory concentration < = NRG Ceftriaxone susceptibility test by minimum inhibitory concentration <= NRG Ampicillin/sulbactam susceptibility test by minimum inhibitory concentration 4 NRG Piperacillin/tazobactam susceptibility test by minimum inhibitory concentration <= NRG Ciprofloxacin susceptibility test by minimum inhibitory concentration 1 NRG Meropenem susceptibility test by minimum inhibitory concentration < = NRG Nitrofurantoin susceptibility test by minimum inhibitory concentration <= NRG Aztreonam susceptibility test by minimum inhibitory concentration < = NRG Extended spectrum beta lactamase (ESBL) producing bacteria susceptibility test by minimum inhibitory concentration - [facility] Blood lactic acid measurement (moles/volume) - 08/21/16 18:30 Blood lactic acid measurement (moles/volume) 1.03 mmol/L 0.50-2.00 Comprehensive metabolic panel - 08/21/16 18:30 Serum or plasma sodium measurement (moles/volume) 136 mmol/L 135-145 Serum or plasma potassium measurement (moles/volume) 3.2 mmol/L 3.6-5.0 Serum or plasma chloride measurement (moles/volume) 102 mmol/L 98-107 Carbon dioxide 20 mmol/L 21-32 Serum or plasma anion gap determination (moles/volume) 14 mmol/L 5-14 Serum or plasma urea nitrogen measurement (mass/volume) 10 mg/dL 7-18 Serum or plasma creatinine measurement (mass/volume) 0.80 mg/dL 0.60-1.30 Serum or plasma urea nitrogen/creatinine mass [...] Urine pH measurement by test strip 7 5-9 Specific gravity of urine by test strip 1.010 1.016- 1.022 Urine protein assay by test strip, semi-quantitative [...] culture - 08/21/16 18:45 Bacterial urine culture [id number] NRG COLONY COUNT >100,000/ML NRG FTX;REPORTABLE SENSITIVITY REPORTED AT 1651, 4-17 NR Bacterial susceptibility panel - 08/21/16 18:45 Gentamicin susceptibility test by minimum inhibitory concentration < = NRG Trimethoprim/sulfamethoxazole susceptibility test by minimum inhibitoryconcentration >= NRG Ampicillin susceptibility test by minimum inhibitory concentration > = NRG Tobramycin susceptibility test by minimum inhibitory concentration < = NRG Cefazolin susceptibility test by minimum inhibitory concentration < = NRG Ceftriaxone susceptibility test by minimum inhibitory concentration <= NRG Ampicillin/sulbactam susceptibility test by minimum inhibitory concentration 4 NRG Piperacillin/tazobactam susceptibility test by minimum inhibitory concentration <= NRG Ciprofloxacin susceptibility test by minimum inhibitory concentration 1 NRG Meropenem susceptibility test by minimum inhibitory concentration < = NRG Nitrofurantoin susceptibility test by minimum inhibitory concentration 32 NRG Aztreonam susceptibility test by minimum inhibitory concentration < = NRG Extended spectrum beta lactamase (ESBL) producing bacteria susceptibility test by minimum inhibitory concentration - NRG Complete blood count (CBC) with automated white blood cell (WBC) differential - 08/21/16 19:28 Blood leukocytes automated count (number/volume) 6.7 10*3/uL 4.3-11.0 Blood erythrocytes automated count (number/volume) 3.99 10*6/uL 4.35-5.85 Venous blood hemoglobin measurement (mass/volume) 12.3 [...] Automated blood platelet mean volume measurement 9.9 [foz_us] 7.4-10.4 Automated blood neutrophils/100 leukocytes 57 % [...] Urine pH measurement by test strip 5 5-9 Specific gravity of urine by test strip 1.020 1.016- 1.022 Urine protein assay by test strip, semi-quantitative [...] 13:00 Blood leukocytes automated count (number/volume) 6.8 10*3/uL 4.3-11.0 Blood erythrocytes automated count (number/volume) 4.86 10*6/uL 4.35-5.85 Venous blood hemoglobin measurement (mass/volume) 14.8 [...] Automated blood platelet mean volume measurement 10.2 [foz_us] 7.4-10.4 Automated blood neutrophils/100 leukocytes 54 % [...] Serum or plasma sodium measurement (moles/volume) 138 mmol/L 135-145 Serum or plasma potassium measurement (moles/volume) 3.0 mmol/L 3.6-5.0 Serum or plasma chloride measurement (moles/volume) 103 mmol/L 98-107 Carbon dioxide 20 mmol/L 21-32 Serum or plasma anion gap determination (moles/volume) 15 mmol/L 5-14 Serum or plasma urea nitrogen measurement (mass/volume) 10 mg/dL 7-18 Serum or plasma creatinine measurement (mass/volume) 0.94 mg/dL 0.60-1.30 Serum or plasma urea nitrogen/creatinine mass ratio 11 NRG Serum or plasma creatinine measurement with calculation of estimated glomerular filtration rate 60 NRG Serum or plasma glucose measurement (mass/volume) 108 mg/dL 70-105 Serum or plasma calcium measurement (mass/volume) 10.2 mg/dL 8.5-10.1 Serum or plasma total bilirubin [...] or plasma amylase measurement (enzymatic activity/volume) 60 U /L 25-125 Complete blood count (CBC) with automated white blood cell (WBC) differential - 02/08/17 14:30 Blood leukocytes automated count (number/volume) 6.6 10*3/uL 4.3-11.0 Blood erythrocytes automated count (number/volume) 4.04 10*6/uL 4.35-5.85 Venous blood hemoglobin measurement (mass/volume) 13.2 g/dL 11.5-16.0 Blood hematocrit (volume fraction) 41 % 35-52 Automated erythrocyte mean corpuscular volume 101 [foz_us] 80-99 Automated erythrocyte mean corpuscular hemoglobin (mass per erythrocyte) 33 pg 25-34 Automated erythrocyte mean corpuscular hemoglobin concentration measurement ( mass/volume) 32 g/dL 32-36 Automated erythrocyte distribution width ratio 13.5 % 10.0-14.5 Automated blood platelet count (count/volume) 245 10*3/uL 130-400 Automated blood platelet mean volume measurement 9.4 [foz_us] 7.4-10.4 Automated blood neutrophils/100 leukocytes 58 % 42-75 Automated blood lymphocytes/100 leukocytes 28 % 12-44 Blood monocytes/100 leukocytes 11 % 0-12 Automated blood eosinophils/100 leukocytes 2 % 0-10 Automated blood basophils/100 leukocytes 1 % 0-10 Blood neutrophils automated count (number/volume) 3.8 10*3 1.8-7.8 Blood lymphocytes automated count (number/volume) 1.9 10*3 1.0-4.0 Blood monocytes automated count (number/volume) 0.7 10*3 0.0-1.0 Automated eosinophil count 0.1 10*3/uL 0.0-0.3 Automated blood basophil count (count/volume) 0.1 10*3/uL 0.0-0.1 Comprehensive metabolic panel - 02/08/17 14:30 Serum or plasma sodium measurement (moles/volume) 136 mmol/L 135-145 Serum or plasma potassium measurement (moles/volume) 3.9 mmol/L 3.6-5.0 Serum or plasma chloride measurement (moles/volume) 104 mmol/L 98-107 Carbon dioxide 22 mmol/L 21-32 Serum or plasma anion gap determination (moles/volume) 10 mmol/L 5-14 Serum or plasma urea nitrogen measurement (mass/volume) 9 mg/dL 7-18 Serum or plasma creatinine measurement (mass/volume) 0.83 mg/dL 0.60-1.30 Serum or plasma urea nitrogen/creatinine mass ratio 11 NRG Serum or plasma creatinine measurement with calculation of estimated glomerular filtration rate > NRG Serum or plasma glucose measurement (mass/volume) 107 mg/dL 70-105 Serum or plasma calcium measurement (mass/volume) 9.0 mg/dL 8.5-10.1 Serum or plasma total bilirubin measurement (mass/volume) 0.2 mg/dL 0.1-1.0 Serum or plasma alkaline phosphatase measurement (enzymatic activity/volume) 64 U/L 40-136 Serum or plasma aspartate aminotransferase measurement (enzymatic activity/ volume) 16 U/L 5-34 Serum or plasma alanine aminotransferase measurement (enzymatic activity/volume ) 9 U/L 0-55 Serum or plasma protein measurement (mass/volume) 7.4 g/dL 6.4-8.2 Serum or plasma albumin measurement (mass/volume) 4.2 g/dL 3.2-4.5 CULTURE, URINE - 03/23/17 12:47 CULTURE, URINE, ROUTINE SEE NOTE NRG CULTURE, URINE - 04/19/17 11:02 CULTURE, URINE, ROUTINE SEE NOTE NRG LIPASE - 05/03/17 11:49 LIPASE 80 U/L 7-60 PDM - 09 PANEL (PROFILE 1) - 09/20/17 14:31 Prescribed Drug 1 Librium(TM) NRG Creatinine 21.9 mg/dL > or=20.0 pH 7.14 4.5 - 9.0 Oxidant NEGATIVE mcg/mL <200 Amphetamines NEGATIVE ng/mL <500 medMATCH Amphetamines CONSISTENT NRG Benzodiazepines POSITIVE ng/mL <100 Marijuana Metabolite NEGATIVE ng/mL <20 medMATCH Marijuana Metab CONSISTENT NRG Cocaine Metabolite NEGATIVE ng/mL <150 medMATCH Cocaine Metab CONSISTENT NRG Opiates NEGATIVE CONFIRMED ng/mL <100 Oxycodone NEGATIVE ng/mL <100 medMATCH Oxycodone CONSISTENT NRG COMMENT NRG Alphahydroxyalprazolam NEGATIVE ng/mL <25 medMATCH aOH alprazolam CONSISTENT NRG Alphahydroxymidazolam NEGATIVE ng/mL <50 medMATCH aOH midazolam CONSISTENT NRG Alphahydroxytriazolam NEGATIVE ng/mL <50 medMATCH aOH triazolam CONSISTENT NRG Aminoclonazepam NEGATIVE ng/mL <25 medMATCH Aminoclonazepam CONSISTENT NRG Hydroxyethylflurazepam NEGATIVE ng/mL <50 medMATCH OH,Et flurazepam CONSISTENT NRG Lorazepam NEGATIVE ng/mL <50 medMATCH Lorazepam CONSISTENT NRG Nordiazepam NEGATIVE ng/mL <50 medMATCH Nordiazepam CONSISTENT NRG Oxazepam 1150 ng/mL <50 medMATCH Oxazepam CONSISTENT NRG Temazepam NEGATIVE ng/mL <50 medMATCH Temazepam CONSISTENT NRG Codeine NEGATIVE ng/mL <50 medMATCH Codeine CONSISTENT NRG Hydrocodone NEGATIVE ng/mL <50 medMATCH Hydrocodone CONSISTENT NRG Hydromorphone NEGATIVE ng/mL <50 medMATCH Hydromorphone CONSISTENT NRG Morphine NEGATIVE ng/mL <50 medMATCH Morphine CONSISTENT NRG Norhydrocodone NEGATIVE ng/mL <50 medMATCH Norhydrocodone CONSISTENT NRG Barbiturates NEGATIVE ng/mL <300 medMATCH Barbiturates CONSISTENT NRG Methadone Metabolite NEGATIVE ng/mL <100 medMATCH Methadone Metab CONSISTENT NRG Phencyclidine NEGATIVE ng/mL <25 medMATCH Phencyclidine CONSISTENT NRG UA W/ MICROSCOPY - 10/30/17 17:47 COLOR TNP NRG COMMENTS NRG Encounters ACCT No. Visit Date/Time Discharge Status Pt. Type Provider Facility Loc./Unit Complaint [id number] 08/25/2014 15:28:00 08/25/2014 23:59:59 CLS Outpatient SALLY [employer], VALERIE S [id number] 07/14/2014 09:55:00 07/14/2014 23:59:59 CLS Outpatient KARO YATES DO [id number] 05/31/2014 09:29:00 05/31/2014 23:59:59 CLS Outpatient SALLY [employer], VALERIE S [id number] 05/31/2014 09:29:00 05/31/2014 23:59:59 CLS Outpatient SALLY [employer], VALERIE S [id number] 04/07/2014 12:21:00 04/07/2014 23:59:59 CLS Outpatient SALLY [employer], VALERIE S [id number] 04/07/2014 12:21:00 04/07/2014 23:59:59 CLS Outpatient KARO YATES DO [id number] 02/18/2014 13:43:00 02/18/2014 23:59:59 CLS Outpatient SALLY [employer], VALERIE S [id number] 01/23/2014 17:27:00 01/23/2014 23:59:59 CLS Outpatient KARO YATES DO [id number] 12/03/2013 09:16:00 12/03/2013 23:59:59 CLS Outpatient SALLY [employer], VALEIRE S [id number] 12/03/2013 09:16:00 12/03/2013 23:59:59 CLS Outpatient SALLY [employer], VALERIE S [id number] 10/17/2013 13:45:00 10/17/2013 23:59:59 CLS Outpatient SALLY [employer], VALERIE S [id number] 09/09/2013 10:47:00 09/09/2013 23:59:59 CLS Outpatient SALLY [employer], VALERIE S [id number] 06/04/2013 10:50:00 06/04/2013 23:59:59 CLS Outpatient SALLY [employer], VALERIE S [id number] 06/04/2013 10:50:00 06/04/2013 23:59:59 CLS Outpatient SALLY [employer], VALERIE S [id number] 05/07/2013 11:28:00 05/07/2013 23:59:59 CLS Outpatient SALLY [employer], VALERIE S [id number] 04/10/2013 16:12:00 04/10/2013 23:59:59 CLS Outpatient VALERIE ZAVALA APRN [id number] 04/10/2013 16:12:00 04/10/2013 23:59:59 CLS Outpatient MILAN RAMIREZKARO [id number] 04/06/2013 11:17:00 04/06/2013 23:59:59 CLS Outpatient YATES DOKARO [id number] 04/02/2013 10:20:00 04/02/2013 23:59:59 CLS Outpatient VALERIE ZAVALA APRN [id number] 02/04/2013 11:19:00 02/04/2013 23:59:59 CLS Outpatient MICHELLE CAMARGO MD [id number] 02/04/2013 11:19:00 02/04/2013 23:59:59 CLS Outpatient VALERIE ZAVALA APRN [id number] 08/10/2012 09:19:00 08/10/2012 23:59:59 CLS Outpatient YATES DOKARO [id number] 07/30/2012 08:25:00 07/30/2012 23:59:59 CLS Outpatient VALERIE ZAVALA APRN [id number] 07/04/2012 13:20:00 07/04/2012 23:59:59 CLS Outpatient VALERIE ZAVALA APRN [id number] 06/29/2012 08:10:00 06/29/2012 23:59:59 CLS Outpatient MILAN RAMIREZKARO [id number] 06/13/2012 14:07:00 06/13/2012 23:59:59 CLS Outpatient VALERIE ZAVALA APRN S [id number] 06/05/2012 11:37:00 06/05/2012 23:59:59 CLS Outpatient [id number] 05/29/2012 16:36:00 05/29/2012 23:59:59 CLS Outpatient ZORAIDA ESPAÑA APRN [id number] 03/30/2012 09:50:00 03/30/2012 23:59:59 CLS Outpatient YATES DOKARO [id number] 02/14/2012 13:28:00 02/14/2012 23:59:59 CLS Outpatient YATES DOKARO [id number] 11/13/2012 14:22:00 Document Registration [id number] 11/13/2012 14:22:00 Document Registration [id number] 09/21/2012 09:46:00 Document Registration [id number] 01/02/2015 04:06:53 ACT Document Registration [id number] 10/05/2017 15:40:00 10/05/2017 16:50:00 DIS Emergency CYDNEY ANDERSON APRN [facility] ER FALL;R KNEE [id number] 09/21/2017 13:41:00 09/21/2017 23:59:59 CLS Outpatient SALLYSERINAVALERIE JEWEL [employer]ARING [employer]KER [facility] RAD Z12.31 SCREENING MAMMO [id number] 09/04/2017 08:30:00 09/04/2017 23:59:59 CLS Preadmit AUDIE ROBISON MD [facility] ENDO GERD/WT LOSS [id number] 08/28/2017 05:38:00 08/28/2017 09:34:00 DIS Outpatient AUDIE ROBISON MD [facility] PREOP EGD [id number] 06/01/2017 14:47:00 06/01/2017 23:59:59 CLS Outpatient SERINA ZAVALANDA [employer] [facility] RAD R31.9 HEMATURIA [id number] 05/16/2017 11:28:00 05/16/2017 23:59:59 CLS Outpatient SALLY, VALERIE J[employer] [facility] RAD R10.31 RIGHT LOWER QUADRANT ABDOMINAL PAIN [id number] 02/08/2017 14:15:00 02/08/2017 23:59:59 CLS Outpatient SEDRICK DOBSON [employer] [facility] LAB R10.31 [id number] 09/18/2016 11:44:00 09/18/2016 15:05:00 DIS Emergency THANH MAO MD [facility] ER ABD PAIN [id number] 08/21/2016 17:56:00 08/21/2016 20:28:00 DIS Emergency LORETO TIPTON DO [facility] ER UTI SYMPTOMS [id number] 07/08/2016 15:53:00 07/08/2016 17:45:00 DIS Emergency CONCEPCION ABRAMS, BINU Thomas [facility] ER UTI SX [id number] 06/25/2016 13:23:00 06/25/2016 14:34:00 DIS Emergency ANDREW KANG [facility] ER UTI SYMPTOMS [id number] 06/23/2016 05:59:00 06/23/2016 23:59:59 CLS Outpatient ENRIQUETA ABRAMS, AUDIE Johnson [facility] PREOP GERD [id number] 06/02/2016 01:23:00 06/03/2016 12:15:00 DIS Inpatient RAISSA FUENTES MD [facility] ICU COPD EXACERBATION [id number] 05/29/2016 15:59:00 05/29/2016 18:15:00 DIS Emergency CYDNEY ANDERSON APRN [facility] ER COUGH/DIFF BREATHING/ WEAKNESS [id number] 10/23/2015 08:47:00 10/23/2015 23:59:59 CLS Outpatient VALERIE ZAVALA [facility] RAD RUQ ABD PAIN [id number] 10/23/2015 13:52:00 10/23/2015 16:58:00 DIS Emergency MIKAELA MIN MD [facility] ER ABD PAIN [id number] 08/12/2015 13:46:00 08/12/2015 23:59:59 CLS Preadmit VALERIE ZAVALA [facility] REHAB [id number] 03/31/2015 12:24:00 03/31/2015 23:59:59 CLS Outpatient ALBARO PARADA MD [facility] RAD LUMBAR RADICULOPATHY [id number] 01/07/2015 06:00:00 01/10/2015 11:06:00 DIS Inpatient ALBARO PARADA MD [facility] SURGICAL RIGHT KNEE SEVERE OSTEOARTHRITIS [id number] 01/01/2015 09:52:00 01/01/2015 23:59:59 CLS Outpatient ALBARO PARADA MD [facility] PREOP RIGHT KNEE SEVERE OSTEOARTHRITIS [id number] 11/03/2014 07:51:00 11/03/2014 16:15:00 DIS Outpatient DOLORES DPM, SHERI Q [facility] SDC HAMMER TOE LT GREAT TOE [id number] 10/29/2014 10:29:00 10/29/2014 23:59:59 CLS Outpatient DOLORES DPM, SHERI Q [facility] PREOP HAMMERTOE LEFT FOOT [id number] 06/11/2014 09:17:00 06/11/2014 23:59:59 CLS Outpatient VALERIE ZAVALA [facility] RAD RIGHT FLANK PAIN FOR 3 MONTHS [id number] 05/23/2014 08:31:00 05/23/2014 23:59:59 CLS Outpatient BALTAZAR COTTER DO [facility] CARD RUQ PAIN [id number] 04/22/2014 09:15:00 04/22/2014 23:59:59 CLS Outpatient VALERIE ZAVALAP [facility] RAD MID EPIGASTRIC PAIN, RADIATING TO RT [id number] 02/26/2014 14:09:00 02/26/2014 16:55:00 DIS Emergency MIKE NICHOLSON [facility] ER RIGHT FLANK PAIN [id number] 10/23/2013 08:33:00 10/23/2013 23:59:59 CLS Outpatient SEDRICK DOBSON APRN [facility] RAD UNCONTROLLED BP [id number] 09/20/2013 13:33:00 09/20/2013 23:59:59 CLS Outpatient VALERIE ZAVALA [facility] RAD UNCONTROLLED BLOOD PRESSURE [id number] 10/29/2014 10:48:00 Document Registration [id number] 10/29/2014 10:48:00 Document Registration [id number] 10/29/2014 10:48:00 Document Registration [id number] 10/29/2014 10:42:00 Document Registration [id number] 06/28/2012 15:25:00 Document Registration [id number] 06/25/2012 10:52:00 Document Registration [id number] 02/20/2012 05:51:00 Document Registration [id number] 02/14/2012 11:58:00 Document Registration [id number] 12/05/2011 11:16:00 Document Registration [id number] 10/03/2011 13:46:00 Document Registration [id number] 09/18/2011 15:35:00 Document Registration [id number] 07/10/2011 13:03:00 Document Registration [id number] 07/06/2011 18:15:00 Document Registration [id number] 06/16/2011 08:58:00 Document Registration [id number] 04/26/2011 05:37:00 Document Registration [id number] 04/20/2011 09:35:00 Document Registration [id number] 02/27/2011 19:11:00 Document Registration [id number] 01/31/2011 14:13:00 Document Registration [id number] 11/07/2010 19:22:00 Document Registration [id number] 10/11/2010 14:04:00 Document Registration [id number] 09/06/2010 17:52:00 Document Registration [id number] 08/23/2010 11:02:00 Document Registration [id number] 08/18/2010 06:59:00 Document Registration [id number] 05/20/2010 10:20:00 Document Registration [id number] 10/30/2009 09:41:00 Document Registration [id number] 05/03/2016 08:06:00 Document Registration [id number] 10/30/2017 16:40:00 10/30/2017 23:59:59 [facility] Outpatient VALERIE ZAVALA APRN [facility] [id number] 10/30/2017 16:40:00 Document Registration [id number] 09/20/2017 13:40:00 Document Registration [id number] 05/03/2017 11:20:00 Document Registration [id number] 04/19/2017 10:40:00 Document Registration [id number] 03/23/2017 12:20:00 Document Registration
[2017-11-27] MEDS ORDERED: NS IV 1000 ML 1,000 ML IV SCH (16:30)
[2017-11-27] MEDS ORDERED: fentaNYL INJECTION 100 MCG/2 ML AMP IVP ONE (16:30)
[2017-11-27] MEDS ORDERED: ONDANSETRON 4 MG/2 ML (SDV) Z0FRAN IVP ONE (16:30)
[2017-11-27 16:31] LABS: BASOPHILS % (AUTO) 1 % (0-10); EOSINOPHILS # (AUTO) 0.1 10^3/uL (0.0-0.3); EOSINOPHILS % (AUTO) 1 % (0-10); HEMATOCRIT 41 % (35-52); HEMOGLOBIN 13.8 G/DL (11.5-16.0); LYMPHOCYTES # (AUTO) 1.6 X 10^3 (1.0-4.0); LYMPHOCYTES % (AUTO) 31 % (12-44); MEAN CORPUSCULAR HEMOGLOBIN 35 PG (25-34); MEAN CORPUSCULAR HGB CONC 34 G/DL (32-36); MEAN CORPUSCULAR VOLUME 105 FL (80-99); MEAN PLATELET VOLUME 9.7 FL (7.4-10.4); MONOCYTES # (AUTO) 0.6 X 10^3 (0.0-1.0); MONOCYTES % (AUTO) 11 % (0-12); NEUTROPHILS # (AUTO) 2.9 X 10^3 (1.8-7.8); NEUTROPHILS % (AUTO) 56 % (42-75); PLATELET COUNT 264 10^3/uL (130-400); RED BLOOD COUNT 3.91 10^6/uL (4.35-5.85); RED CELL DISTRIBUTION WIDTH 13.5 % (10.0-14.5); WHITE BLOOD COUNT 5.2 10^3/uL (4.3-11.0)
--- NOTE | 2017-11-27 16:31 | ED GU-Female ---
General Chief Complaint: General Problems/Pain Stated Complaint: HIGH BP;UTI Nursing Triage Note: PT BROUGHT TO ED IN WHEELCHAIR BY . PT STATES SHE WAS SEEN AT CLINIC TODAY BY VALERIE AND WAS TOLD TO COME TO ED. PT STATES SHE HAS BEEN HAVING HIGH BP ACCOMPANIED BY GREEN. PT ALSO C/O FLANK PAIN THAT STARTS ON THE RIGHT AND LEFT SIDES AND RADIATES TO THE SUPRAPUBIC AREA. PT STATES SHE WAS DX WITH A UTI AND HAS BEEN TAKING MACROBID AND CIPRO. PT ALSO C/O NUMBNESS IN HAND AND FEET. SYMPTOMS BEGAN AT 399. PT STATES SHE HAS A HX OF KIDNEY STONES. Nursing Sepsis Screen: No Definite Risk Source: patient, family Exam Limitations: no limitations History of Present Illness Date Seen by Provider: Nov 27, 2017 Time Seen by Provider: 16:27 Initial Comments This 67-year-old white female presents with a persistent and resistant urinary tract infection. Patient has had multiple similar episodes over the last half decade. She is currently on Macrobid and was seen at [facility] today where Cipro was added to her regimen. Because the patient was having such significant suprapubic discomfort she was referred to the emergency department. Patient denies associated fever, chills, flank pain, or urinary clots. Allergies and Home Medications Allergies Coded Allergies: Sulfa (Sulfonamide Antibiotics) (Verified Allergy, Unknown, 05/29/16) adhesive (Verified Allergy, Unknown, 05/29/16) fentanyl adhesive meperidine (Verified Allergy, Unknown, HALLUCINATIONS, 05/29/16) pregabalin (Verified Allergy, Unknown, 07/10/16) Home Medications Albuterol Sulfate 1 Puff Puff, 1 PUFF IH DAILY, (Reported) 1 PUFF = 90 MCG Chlordiazepoxide HCl 10 Mg Capsule, 20 MG PO TID, (Reported) Diclofenac Sodium 100 Gm Gel..gram., 100 GM TP QID Prescribed by: CYDNEY ANDERSON on 10/05/17 1619 Dicyclomine HCl 20 Mg Tablet, 20 MG PO TID, (Reported) Metoprolol Succinate 50 Mg Tab.er.24h, 50 MG PO DAILY, (Reported) Naproxen 250 Mg Tablet, 250 MG PO BID Prescribed by: CYDNEY ANDERSON on 10/05/17 161 Pantoprazole Sodium 40 Mg Tablet.dr, 40 MG PO DAILY, (Reported) Patient Home Medication List Home Medication List Reviewed: Yes Review of Systems Constitutional: No chills, No fever EENTM: No ear pain, No vision loss Respiratory: No cough Cardiovascular: No chest pain Gastrointestinal: No abdominal pain, No diarrhea; nausea; No vomiting Genitourinary: frequency, other (suprapubic discomfort.) Musculoskeletal: no symptoms reported Skin: no symptoms reported Psychiatric/Neurological: No Symptoms Reported Endocrine: No Symptoms Reported Hematologic/Lymphatic: No Symptoms Reported Past Xueibcn-Jpdoco-Uzolne Hx Past Med/Social Hx: Reviewed Nursing Past Med/Soc Hx Patient Social History Alcohol Use: Denies Use Recreational Drug Use: No Type Used: Cigarettes 2nd Hand Smoke Exposure: Yes Recent Foreign Travel: No Contact w/Someone Who Travel: No Recent Infectious Disease Expo: No Recent Hopitalizations: No (Emphysema, UTI admit 05/2016) Physical Abuse: No Sexual Abuse: No Immunizations Up To Date Tetanus Booster (TDap): Less than 5yrs Date of Pneumonia Vaccine: Feb 27, 2017 Date of Influenza Vaccine: Feb 27, 2017 Seasonal Allergies Seasonal Allergies: Yes Past Medical History Surgeries: Yes (ADHESIOLYSIS X3, LEFT FOOT X2, C/S X2, HYSTERECTOMY, RIGHT KNEE ) Abdominal, Section, Hysterectomy, Joint Replacement, Orthopedic, Tonsillectomy Respiratory: Yes COPD Currently Using CPAP: No Cardiac: Yes Hypertension Neurological: No Headaches /Migraines 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 Disorders: No Sexually Transmitted Disease: No HIV/AIDS: No Genitourinary: Yes Kidney Stones, UTI-Chronic Gastrointestinal: Yes Gastroesophageal Reflux, Chronic Constipation, Irritable Bowel Musculoskeletal: Yes ("KNEE AND BACK PROBLEMS" "BULGING DISCS" ) Degenerate Disk Disease, Osteoporosis, Arthritis, Fibromyalgia, Chronic Back Pain Endocrine: No Loss of Vision: Bilateral Hearing Impairment: Denies Cancer: No Psychosocial: Yes (Pt states she had Bulemia years ago and lowest weight was 94 lbs ) Anxiety, PTSD, Depression Nursing Suicide Risk Score: 0 Integumentary: No Blood Disorders: Yes (HX OF ANEMIA) Adverse Reaction/Blood Tranf: No (HAS FLUSHING BUT NO REACTION) Family Medical History Reviewed Nursing Family Hx Abdominal aortic aneurysm Alzheimer's disease 19 MOTHER Cardiovascular disease 19 FATHER ( AT 46 FROM HEART ATTACK) G8 SISTER Hypercholesterolemia 19 FATHER Hypertension 19 FATHER 19 MOTHER Myocardial infarction 19 FATHER Thyroid disease 19 MOTHER G8 SISTER Physical Exam Vital Signs Vital Signs - First Documented 11/27/17 16:01 Temp 98.0 Pulse 88 Resp 14 B/P (MAP) 194/122 (146) O2 Delivery Room Air Capillary Refill : Less Than 3 Seconds Height, Weight, BMI Height: 5'4.00" Weight: 126lbs. 0.0oz. 57.038717ii; 21.5 BMI Method:Stated General Appearance: WD/WN, mild distress HEENT: normal ENT inspection Neck: non-tender, full range of motion, supple Cardiovascular: regular rate, rhythm Respiratory: lungs clear Gastrointestinal: non tender, soft Back: normal inspection Extremities: normal range of motion, non-tender 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: no motor/sensory deficits, alert, normal mood/affect, oriented x 3 Skin: normal color, warm/dry Progress/Results/Core Measures Suspected Sepsis Recent Fever Within 48 Hours: No Infection Criteria Present: None New/Unexplained Altered Menta: No Sepsis Screen: No Definite Risk SIRS Temperature:98.0 Pulse: 88 Respiratory Rate: 14 Laboratory Tests 11/27/17 15:54: White Blood Count 5.2 Blood Pressure 194 /122 Mean: 146 Laboratory Tests 11/27/17 15:54: Creatinine 0.96, Platelet Count 264, Total Bilirubin 0.4 Results/Orders Lab Results Laboratory Tests Test 11/27/17 15:37 11/27/17 15:54 Range/Units Urine Color YELLOW Urine Clarity CLEAR Urine pH 5 5-9 Urine Specific [place] 1.015 L 1.016-1.022 Urine Protein 2+ H NEGATIVE Urine Glucose (UA) NEGATIVE NEGATIVE Urine Ketones 1+ H NEGATIVE Urine Nitrite NEGATIVE NEGATIVE Urine Bilirubin NEGATIVE NEGATIVE Urine Urobilinogen NORMAL NORMAL MG/DL Urine Leukocyte Esterase 1+ H NEGATIVE Urine RBC (Auto) 1+ H NEGATIVE Urine RBC RARE /HPF Urine WBC 2-5 /HPF Urine Squamous Epithelial Cells NONE /HPF Urine Crystals NONE /LPF Urine Bacteria NEGATIVE /HPF Urine Casts NONE /LPF Urine Mucus NEGATIVE /LPF Urine Culture Indicated NO White Blood Count 5.2 4.3-11.0 10^3/uL Red Blood Count 3.91 L 4.35-5.85 10^6/uL Hemoglobin 13.8 11.5-16.0 G/DL Hematocrit 41 35-52 % Mean Corpuscular Volume 105 H 80-99 FL Mean Corpuscular Hemoglobin 35 H 25-34 PG Mean Corpuscular Hemoglobin Concent 34 32-36 G/DL Red Cell Distribution Width 13.5 10.0-14.5 % Platelet Count 264 130-400 10^3/uL Mean Platelet Volume 9.7 7.4-10.4 FL Neutrophils (%) (Auto) 56 42-75 % Lymphocytes (%) (Auto) 31 12-44 % Monocytes (%) (Auto) 11 0-12 % Eosinophils (%) (Auto) 1 0-10 % Basophils (%) (Auto) 1 0-10 % Neutrophils # (Auto) 2.9 1.8-7.8 X 10^3 Lymphocytes # (Auto) 1.6 1.0-4.0 X 10^3 Monocytes # (Auto) 0.6 0.0-1.0 X 10^3 Eosinophils # (Auto) 0.1 0.0-0.3 10^3/uL Basophils # (Auto) 0.0 0.0-0.1 10^3/uL Sodium Level 131 L 135-145 MMOL/L Potassium Level 3.6 3.6-5.0 MMOL/L Chloride Level 97 L 98-107 MMOL/L Carbon Dioxide Level 23 21-32 MMOL/L Anion Gap 11 5-14 MMOL/L Blood Urea Nitrogen 13 7-18 MG/DL Creatinine 0.96 0.60-1.30 MG/DL Estimat Glomerular Filtration Rate 58 BUN/Creatinine Ratio 14 Glucose Level 105 70-105 MG/DL Calcium Level 9.8 8.5-10.1 MG/DL Total Bilirubin 0.4 0.1-1.0 MG/DL Aspartate Amino Transf (AST/SGOT) 37 H 5-34 U/L Alanine Aminotransferase (ALT/SGPT) 33 0-55 U/L Alkaline Phosphatase 85 40-136 U/L Total Protein 7.7 6.4-8.2 GM/DL Albumin 4.3 3.2-4.5 GM/DL My Orders Orders - DEB TERESA MD Ua Culture If Indicated (11/27/17 16:23) Cbc With Automated Diff (11/27/17 16:23) Comprehensive Metabolic Panel (11/27/17 16:23) Ns Iv 1000 Ml (Sodium Chloride 0.9%) (11/27/17 16:30) Ondansetron Injection (Zofran Injectio (11/27/17 16:30) Fentanyl Injection (Sublimaze Injection (11/27/17 16:30) Ketorolac Injection (Toradol Injection) (11/27/17 17:15) Medications Given in ED Current Medications Medications Dose Ordered Sig/Lisa Route Start Time Stop Time Status Last Admin Dose Admin Fentanyl Citrate 50 mcg ONCE ONCE IVP 11/27/17 16:30 11/27/17 16:31 DC 11/27/17 16:37 50 MCG Ketorolac Tromethamine 30 mg ONCE ONCE IVP 11/27/17 17:15 11/27/17 17:16 DC 11/27/17 17:12 30 MG Ondansetron HCl 4 mg ONCE ONCE IVP 11/27/17 16:30 11/27/17 16:31 DC 11/27/17 16:39 4 MG Vital Signs/I&O 11/27/17 16:01 Temp 98.0 Pulse 88 Resp 14 B/P (MAP) 194/122 (146) O2 Delivery Room Air Capillary Refill : Less Than 3 Seconds Blood Pressure Mean: 146 Progress Note : Time: 17:41 Progress Note Patient's urinalysis did not demonstrate a definite urinary tract infection. I am gave the patient 50 g of fentanyl with moderate relief. I gave the patient 30 mg Toradol with essentially no relief. I discussed findings with the patient and her . They're going to follow up with her doctor tomorrow for further evaluation. I gave the patient prescription Percocet for pain for tonight. Departure Impression Primary Impression: Pelvic pain Disposition: 01 HOME, SELF-CARE Condition: Improved Departure-Patient Inst. Decision time for Depature: 17:43 Referrals: [facility] (PCP) Primary Care Physician VALERIE ZAVALA (Family) Primary Care Physician Patient Instructions: Acute Pelvic Pain Add. Discharge Instructions: Continue with her medications as prescribed. Percocet for pain. Follow-up with your doctor tomorrow as scheduled. Return if any problems or questions. All discharge instructions reviewed with patient and/or family. Voiced understanding. DEB TERESA MD Nov 27, 2017 16:30
[2017-11-27 16:42] LABS: BILIRUBIN,URINE NEGATIVE (NEGATIVE); CLARITY,URINE CLEAR; COLOR,URINE YELLOW; GLUCOSE, URINE (UA) NEGATIVE (NEGATIVE); KETONES,URINE 1+ (NEGATIVE); LEUKOCYTE ESTERASE ,URINE 1+ (NEGATIVE); NITRITE,URINE NEGATIVE (NEGATIVE); PH,URINE 5 (5-9); PROTEIN,URINE 2+ (NEGATIVE); UROBILINOGEN,URINE NORMAL (NORMAL)
[2017-11-27 16:42] LABS: CREATININE SERUM 0.96 MG/DL (0.60-1.30); POTASSIUM 3.6 MMOL/L (3.6-5.0)
[2017-11-27 16:43] LABS: ALBUMIN 4.3 GM/DL (3.2-4.5); BILIRUBIN,TOTAL 0.4 MG/DL (0.1-1.0); CALCIUM 9.8 MG/DL (8.5-10.1); TOTAL PROTEIN 7.7 GM/DL (6.4-8.2)
[2017-11-27 16:50] LABS: BACTERIA,URINE NEGATIVE /HPF; RBC,URINE RARE /HPF
[2017-11-27] MEDS ORDERED: KETOROLAC 30 MG/ML VIAL IVP ONE (17:15)
[2017-11-27 17:52] VITALS: BP 177/98
[2017-12-22] MEDS ORDERED: TIZA4TAB3 PO (20:17)
[2017-12-22] MEDS ORDERED: MELA3TAB PO (20:17)
[2017-12-22] MEDS ORDERED: OXYC-471 PO (20:17)
[2017-12-22] MEDS ORDERED: METO-370 PO (20:17)
[2017-12-22] MEDS ORDERED: PRD20T PO (20:17)
== END 2017-11-27 17:52 | disposition home or self-care (01) ==
LOC: EDUNIT# 15:11 → ER 15:12
DX: R10.2 Pelvic and perineal pain (principal); I10 Essential (primary) hypertension; G43.909 Migraine, unspecified, not intractable, without status migrainosus; K21.9 Gastro-esophageal reflux disease without esophagitis; M81.0 Age-related osteoporosis without current pathological fracture; F32.9 Major depressive disorder, single episode, unspecified; F41.9 Anxiety disorder, unspecified; F43.10 Post-traumatic stress disorder, unspecified; Z87.442 Personal history of urinary calculi; Z87.19 Personal history of other diseases of the digestive system; Z88.2 Allergy status to sulfonamides; Z88.6 Allergy status to analgesic agent; Z88.8 Allergy status to other drugs, medicaments and biological substances; Z77.22 Contact with and (suspected) exposure to environmental tobacco smoke (acute) (chronic); Z90.710 Acquired absence of both cervix and uterus; Z87.59 Personal history of other complications of pregnancy, childbirth and the puerperium; Z90.89 Acquired absence of other organs
CPT/HCPCS: 36415; 80053; 81000; 85025; 96374; 96375

== ENCOUNTER 2017-12-20 12:35 | Inpatient (IN) | payer MEDICARE, MEDICAID ==
[~2017-12-20] VITALS: Ht 162.6 cm; Wt 61.0 kg
--- OUTSIDE RECORDS SUMMARY | 2017-12-20 12:57 | XMS REPORT ---
Author Author VALERIE ZAVALA [facility] Address [address] [place] [address] Care Team Providers Care Credit Collections Clerk Name Role Phone VALERIE ZAVALA Unavailable PROBLEMS Type Condition ICD9-CM Code NLI95-CK Code Onset Dates Condition Status SNOMED Code Problem Generalized anxiety disorder F41.1 Active 00532276 Problem Hypokalemia E87.6 Active 801946800 Problem Right low back pain, with sciatica presence unspecified M54.5 Active 757066902 Problem Post-traumatic stress disorder, chronic F43.12 Active 79855689 Problem Pain in right knee M25.561 Active 15527149 Problem Gastroesophageal reflux disease without esophagitis K21.9 Active 803674388 Problem UTI symptoms R39.9 Active 86758060 Problem Essential hypertension I10 Active 81501420 Problem Anxiety F41.9 Active 87372248 Problem Neuropathy G62.9 Active 521266144 Problem Other chronic pain G89.29 Active 02533067 Problem Generalized abdominal pain R10.84 Active 747647827 Problem Chronic pain G89.29 Active 03933454 Problem Back pain M54.9 Active 153625024 Problem Right foot pain M79.671 Active 52286551 Problem Panic attacks F41.0 Active 238350102 Problem Other emphysema J43.8 Active 24725843 Problem Kidney stones N20.0 Active 64662412 Problem Renal calculus, right N20.0 Active 11334050 Problem Weight decrease R63.4 Active 076482923 Problem Tobacco abuse Z72.0 Active 02697639 Problem Bone pain M89.8X9 Active 17747968 Problem Depression, unspecified depression type F32.9 Active 21756666 Problem Insomnia, unspecified type G47.00 Active 572126813 Problem Pulmonary emphysema, unspecified emphysema type J43.9 Active 20009441 Problem Right upper quadrant abdominal pain R10.11 Active 211674705 Problem Weight loss R63.4 Active 366449163 ALLERGIES No Information ENCOUNTERS Encounter Location Date Diagnosis [facility] [address] [address] Dec, [facility] [address] [address] Nov, [facility] [id number] [address] Nov, Pelvic pain R10.2 ; Acute pyelonephritis N10 and Essential hypertension I10 [facility] [address] [address] Oct, Medicare welcome exam Z00.00 [facility] [id number] [place] [address] 65566- 1698 Oct, Gross hematuria R31.0 ; Urinary tract infection without hematuria, site unspecified N39.0 and Weakness R53.1 [facility] [address] [address] 0[address] Oct, [facility] [address] [address] 7[address] Oct, [facility] [address] [address] 4926 Oct, Medicare welcome exam Z00.00 [facility] [address] [address] 3[address] September, Back pain M54.9 and Right anterior knee pain M25.561 [facility] [address] [address] 4[address] September, [facility] [id number] [address] 8459 September, [facility] [address] [address] 5256 September, Essential hypertension I10 [facility] [id number] [place] [address] 62970- 1676 September, [facility] [address] [address] 3014 September, RLQ abdominal pain R10.31 ; Low back pain M54.5 and Other chronic pain G89.29 [facility] [address] [address] 2865 Aug, Medicare welcome exam Z00.00 [facility] [id number] [place] [address] 17878- 2546 27 Aug, 2017 [facility] [id number] [place] [address] 89551- 9654 Aug, Acute pyelonephritis N10 and Medicare welcome exam Z00.00 [facility] [address] [address] Aug, Dysuria R30.0 and Acute pyelonephritis N10 [facility] [id number] [place] [address] 70138- 0122 Aug, [facility] [id number] [place] [address] 86792- 8541 Aug, [facility] [id number] [place] [address] 29933- 2602 Aug, [facility] [address] [address]- 9677 Aug, [facility] [id number] [place] [address] 07032- 1059 Jul, [facility] [id number] [place] [address] 82174- 5522 Jul, Renal calculus, right N20.0 and Medicare welcome exam Z00.00 [facility] [address] [address] Jul, Dysuria R30.0 and Renal calculus, right N20.0 [facility] [id number] [place] [address] 17208- 5638 Jul, Medicare welcome exam Z00.00 [facility] [id number] [place] [address] 63483- 3396 13 Jun, 2017 Gastroesophageal reflux disease without esophagitis K21.9 and Generalized abdominal pain R10.84 [facility] [id number] [place] [address] 97521- 1236 09 Jun, 2017 Medicare welcome exam Z00.00 [facility] [id number] [place] [address] 77080- 2578 Jun, [facility] [id number] [place] [address] 79283- 8556 Jun, Medicare welcome exam Z00.00 and Encounter for screening mammogram for malignant neoplasm of breast Z12.31 [facility] [id number] [place] [address] 18778- 4437 Jun, Chronic pain G89.29 [facility] [id number] [place] [address] 34212- 5545 May, [facility] [id number] [place] [address] 62704- 1388 May, Pelvic pain R10.2 [facility] [id number] [place] [address] 27850- 4424 May, Pelvic pain R10.2 [facility] [id number] [place] [address] 19324 -9328 May, Renal calculus, right N20.0 [facility] [id number] [place] [address] 00748- 8930 May, Hematuria, unspecified type R31.9 and Nephrolithiasis N20.0 [facility] [id number] [place] [address] 94497 -8889 May, Dysuria R30.0 and Nephrolithiasis N20.0 [facility] [address] [address]- 9276 May, [facility] [id number] [place] [address] 69538 -8727 May, Abdominal pain R10.9 and Kidney stone N20.0 [facility] [address] [place] [address] 69344- 7730 May, [facility] [id number] [place] [address] 17144- 1676 May, Chronic pain G89.29 and Panic attacks F41.0 [facility] [id number] [place] [address] 28599- 3593 May, Urinary tract infection without hematuria, site unspecified N39.0 [facility] [address] [place] [address] 37437- 4946 Apr, Right lower quadrant abdominal pain R10.31 and Abnormal serum lipase level R74.8 [facility] [id number] [place] [address] 95289- 2919 Apr, Recurrent urinary tract infection N39.0 [facility] [address] [place] [address] 62158- 1244 Apr, UTI symptoms R39.9 ; Recurrent urinary tract infection N39.0 and Pelvic pain R10.2 [facility] [address] [place] [address] 50625- 9805 Apr, Chronic pain G89.29 and Panic attacks F41.0 [facility] [id number] [place] [address] 69257- 6201 Apr, Dysuria R30.0 [facility] [id number] [place] [address] 70594- 6389 Apr, [facility] [address] [place] [address] 07239- 3610 Apr, Dysuria R30.0 and Urinary tract infection without hematuria , site unspecified N39.0 [facility] [address] [address]- 4195 Mar, UTI symptoms R39.9 [facility] [id number] [place] [address] 91085- 6781 Mar, [facility] [id number] [place] [address] 56992- 2009 Mar, Panic attacks F41.0 and Chronic pain G89.29 [facility] [id number] [place] [address] 82235- 0883 Mar, [facility] [address] 66981- 4403 Mar, Dysuria R30.0 [facility] [id number] [place] [address] 61097- 7493 Mar, Dysuria R30.0 [facility] [id number] [place] [address] 11927- 5131 Feb, Chronic pain G89.29 ; Shortness of breath R06.02 ; Weight loss R63.4 ; Encounter for immunization Z23 ; Bone pain M89.8X9 ; Right anterior knee pain M25.561 and Cough R05 [facility] [id number] [place] [address] 07022- 8240 Feb, Shortness of breath R06.02 [facility] [id number] [place] [address] 11099- 9705 Feb, [facility] [id number] [place] [address] 29813- 4251 Feb, Panic attacks F41.0 and Chronic pain G89.29 [facility] [id number] [place] [address] 14683- 1292 Feb, [facility] [id number] [place] [address] 07471- 1474 Feb, Panic attacks F41.0 ; Shortness of breath R06.02 and Encounter for immunization Z23 [facility] [id number] [place] [address] 20689- 1062 Jan, [facility] [address] 17378- 8722 15 Jan, 2017 Anxiety F41.9 and Chronic pain G89.29 [facility] [address] 77095- 7316 Dec, Anxiety F41.9 and Chronic pain G89.29 [facility] [address] 29878- 8001 Nov, Chronic pain G89.29 [facility] [address] 47877- 2047 Nov, Anxiety F41.9 [facility] [address] 75109- 6845 Nov, Chronic pain G89.29 ; Essential hypertension I10 and Other emphysema J43.8 [facility] [address] 29406- 4505 Oct, Anxiety F41.9 [facility] [address] 42423- 8455 Oct, [facility] [address] 06584- 0876 Oct, Chronic pain G89.29 [facility] [address] 79215- 0852 September, Recurrent UTI N39.0 ; Neuropathy G62.9 and Anxiety F41.9 [facility] [address] 42267- 8386 September, [facility] [address] 34820- 9934 September, Chronic pain G89.29 [facility] [address] [place] [address]- 2942 September, [facility] [address] [address]- 2156 Aug, Post-traumatic stress disorder, chronic F43.12 ; Chronic urinary tract infection N39.0 ; Gastroesophageal reflux disease without esophagitis K21.9 ; Chronic pain G89.29 ; Essential hypertension I10 and Tobacco abuse Z72.0 [facility] [address] [address] Aug, [facility] [id number] [place] [address] 40502- 2418 Aug, Chronic pain G89.29 [facility] [id number] [place] [address] 42646- 9897 Aug, Insomnia, unspecified type G47.00 [facility] [address] [address]- 3565 Aug, [facility] [id number] [place] [address] 53274- 3946 24 Jul, 2016 Chronic pain G89.29 [facility] [address] [address]- 6552 Jul, [facility] [address] [address]- 1832 Jul, [facility] [address] [address]- 8868 Jul, [facility] [address] [address]- 9558 15 Jul, 2016 Recurrent UTI (urinary tract infection) N39.0 [facility] [address] [address]- 7273 14 Jul, 2016 [facility] [address] [address]- 7629 Jun, Chronic pain G89.29 [facility] [id number] [place] [address] 99424- 7231 17 Jun, 2016 [facility] [id number] [place] [address] 28625- 9548 Jun, [facility] [id number] [place] [address] 49421- 0009 May, Chronic pain G89.29 [facility] [address] 06262- 2803 May, Weight loss R63.4 and Shortness of breath R06.02 [facility] [id number] [place] [address] 89718- 8387 May, Chronic pain G89.29 ; Weight loss R63.4 and Tobacco abuse Z72.0 [facility] [id number] [place] [address] 66948- 9178 May, [facility] [id number] [place] [address] 65868- 5562 May, Hypoxia R09.02 [facility] [id number] [place] [address] 57936- 1171 May, [facility] [id number] [place] [address] 03798- 8162 May, Pulmonary emphysema, unspecified emphysema type J43.9 [facility] [id number] [place] [address] 20179 -7950 May, [facility] [id number] [place] [address] 44085- 3056 May, [facility] [id number] [place] [address] 05433- 1211 May, [facility] [id number] [place] [address] 96835- 5114 May, Chronic pain G89.29 ; Encounter for immunization Z23 ; Right anterior knee pain M25.561 and Cough R05 [facility] [id number] [place] [address] 90856- 7126 Apr, Chronic pain G89.29 [facility] [id number] [place] [address], [place] [address]- 9846 Apr, [facility] [id number] [place] [address] 88748- 2568 Apr, Generalized anxiety disorder F41.1 and Depression, unspecified depression type F32.9 [facility] [id number] [place] [address] 87011- 7084 Apr, Chronic pain G89.29 ; Hypokalemia E87.6 and Insomnia, unspecified type G47.00 [facility] [id number] [place] [address] 94617- 9040 Apr, [facility] [id number] [place] [address] 65217- 0895 Apr, Chronic pain G89.29 [facility] [id number] [place] [address], [place] [address]- 2249 Apr, [facility] [id number] [place] [address] 95653- 3388 Mar, [facility] [id number] [place] [address] 28502- 7483 Mar, Insomnia, unspecified type G47.00 [facility] [id number] [place] [address] 20418- 2958 Mar, Chronic pain G89.29 [facility] [id number] [place] [address] 86231- 1835 Mar, [facility] [id number] [place] [address] 05180- 5550 Feb, [facility] [id number] [place] [address] 22902- 9159 Feb, [facility] [id number] [place] [address] 55356- 1125 10 Feb, 2016 [facility] [address] [address]- 5237 Feb, [facility] [id number] [place] [address] 23569- 4653 Feb, [facility] [address] [address]- 4802 29 Jan, 2016 [facility] [id number] [place] [address] 33645- 3397 Jan, [facility] [address] [place] [address] 82455- 9877 20 Jan, 2016 [facility] [address] [place] [address] 81017- 9561 13 Jan, 2016 [facility] [address] [place] [address] 62112- 9184 12 Jan, 2016 [facility] [address] [place] [address] 08613- 6461 07 Jan, 2016 Chronic pain G89.29 [facility] [id number] [place] [address] 44195- 4613 Jan, Chronic pain G89.29 and Fibromyalgia M79.7 [facility] [address] [address]- 3688 Dec, Depression, unspecified depression type F32.9 and Generalized anxiety disorder 300.02 [facility] [address] [place] [address] 20852- 2062 Dec, Dysthymia F34.1 ; Insomnia, unspecified type G47.00 and Chronic pain G89.29 [facility] [address] [place] [address] 83100- 8696 Dec, Chronic pain G89.29 [facility] [address] [address]- 5838 Dec, Insomnia, unspecified type G47.00 [facility] [address] [address]- 2382 Dec, Fibromyalgia M79.7 and Chronic pain G89.29 [facility] [id number] [place] [address] 40805- 3776 Dec, [facility] [id number] [place] [address] 32736- 8575 Dec, [facility] [id number] [place] [address] 73742- 7986 Dec, [facility] [id number] [place] [address] 54203- 4619 Dec, [facility] [id number] [place] [address] 74157- 1105 Dec, Chronic pain G89.29 [facility] [id number] [place] [address] 21783- 1799 Dec, [facility] [id number] [place] [address] 25579- 9129 Dec, [facility] [id number] [place] [address] 47262- 4841 Dec, [facility] [address] [place] [address] 92809- 2291 Dec, Chronic pain G89.29 and Dysthymia F34.1 [facility] [id number] [place] [address] 14104- 8773 Nov, [facility] [address] [place] [address] 60760- 9532 Nov, Hypokalemia E87.6 and Chronic pain G89.29 [facility] [address] [place] [address] 98876- 8826 Nov, Back pain M54.9 and Pain in right knee M25.561 [facility] [id number] [place] [address] 07983- 9692 Nov, [facility] [address] [place] [address] 77319- 6474 Nov, Chronic pain G89.29 [facility] [id number] [place] [address] 69991- 3229 Nov, Chronic pain G89.29 ; Weight loss R63.4 ; Bone pain M89.8X9 and Insomnia, unspecified type G47.00 [facility] [id number] [place] [address] 57498- 0010 Nov, Chronic pain G89.29 [facility] [id number] [place] [address] 46925- 5659 Nov, Chronic pain G89.29 [facility] [id number] [place] [address] 37592- 1685 30 Oct, 2015 Chronic pain G89.29 [facility] [id number] [place] [address] 30199- 6445 Oct, UTI symptoms R39.9 [facility] [id number] [place] [address] 39647- 4539 Oct, Chronic pain G89.29 [facility] [id number] [place] [address] 31234- 2907 Oct, Chronic pain G89.29 [facility] [address] [place] [address] 88891- 7091 Oct, Chronic pain G89.29 [facility] [id number] [place] [address] 60188- 1063 Oct, Right upper quadrant abdominal pain R10.11 [facility] [id number] [place] [address] 32558- 5737 Oct, Chronic pain G89.29 [facility] [id number] [place] [address] 23369- 9666 Oct, [facility] [address] [address] [address]- 8617 September, Chronic pain G89.29 [facility] [id number] [place] [address] 10697- 4594 September, Dysuria R30.0 and Urinary tract infection without hematuria , site unspecified N39.0 [facility] [address] [address]- 4679 September, [facility] [id number] [place] [address] 74729- 1887 September, Dysuria R30.0 [facility] [id number] [place] [address] 46912- 4076 September, Chronic pain G89.29 [facility] [id number] [place] [address] 92729- 1339 September, Chronic pain G89.29 and Essential hypertension I10 [facility] [id number] [place] [address] 43524- 4706 September, [facility] [address] [place] [address] 08200- 3661 September, [facility] [address] [place] [address] 51503- 7854 September, [facility] [address] [address]- 7097 Aug, UTI symptoms R39.9 [facility] [address] [address]- 2722 Aug, Dysuria R30.0 [facility] [address] [place] [address] 26777- 7588 Aug, [facility] [address] [place] [address] 87825- 8588 Aug, [facility] [address] [address]- 3425 Aug, [facility] [address] [address]- 0585 11 Aug, 2015 Chronic pain G89.29 [facility] [address] [address] 07 Aug, 2015 Dysthymia F34.1 [facility] [address] [address] Aug, Conjunctivitis, unspecified conjunctivitis type, unspecified laterality H10.9 [facility] [address] [address] 31 Jul, 2015 Chronic pain G89.29 ; Back pain M54.9 ; Tobacco abuse Z72.0 and Weight decrease R63.4 [facility] [id number] [address] 30 Jul, 2015 [facility] [id number] [place] [address]58- [address] 30 Jul, 2015 [facility] [address] [address] 24 Jul, 2015 Chronic pain G89.29 [facility] [id number] [address] 22 Jul, 2015 [facility] [id number] [address] Jul, [facility] [id number] [address] 18 Jul, 2015 [facility] [address] [address] 17 Jul, 2015 [facility] [address] [address] 17 Jul, 2015 Chronic pain G89.29 [facility] [id number] [address] 16 Jul, 2015 Chronic pain G89.29 [facility] [id number] [place] [address] 70493- 65[address] Jul, [facility] [id number] [place] [address] 26032- 8930 Jul, [facility] [id number] [place] [address]- 8379 Jul, [facility] [id number] [place] [address]- [address] Jul, [facility] [facility] [id number] [place] [address] 92147- 0264 Jun, [facility] [address] 7[address]61- 9205 Jun, Depression, unspecified depression type F32.9 [id number] [place] [address] 81442- 4046 Jun, Pain in right knee M25.561 [place] [id number] [place] [address] 66300- 0852 Jun, Chronic pain G89.29 ; Back pain M54.9 ; Bone pain M89.8X9 and Weight loss R63.4 [address] [id number] [place] [address] 05339- 0676 Jun, [facility] [id number] [place] [address] 60697- 4590 May, [facility] [id number] [place] [address] 21127- 7111 May, UTI symptoms R39.9 ; Pain in right knee M25.561 ; Right low back pain, with sciatica presence unspecified M54.5 ; Right foot pain M79.671 ; Hypokalemia E87.6 and Screening, lipid Z13.220 [facility] [id number] [place] [address] 26760- 3147 May, [facility] [id number] [place] [address] 25263- 1268 May, [facility] [address] [address] 1326 Mar, [facility] [id number] [place] [address] 62719 2546 Mar, [facility] [id number] [place] [address] 16882- 7896 Mar, Hypokalemia E87.6 [facility] [id number] [place] [address] 02527 2548 Mar, Encounter for immunization Z23 ; Pain in right leg M79.604 ; Pain in right knee M25.561 and Hypokalemia E87.6 [facility] [id number] [place] [address] 96435- 6276 Jan, [facility] [id number] [place] [address] 34137- 3296 Jan, [facility] [id number] [place] [address] 92233 2542 Jan, Abdominal pain, generalized 789.07 [facility] [id number] [place] [address] 58831- 1056 Jan, Abdominal pain, generalized 789.07 [facility] [id number] [place] [address] 02877- 1926 Dec, [facility] [id number] [place] [address] 42533 2544 Dec, [facility] [id number] [place] [address] 98657- 4746 Dec, [facility] [id number] [place] [address] 21412- 2518 Nov, Hallux valgus 735.0 and Hammertoe 735.4 [facility] [address] [place] [address] 93573- 6091 Nov, [facility] [address] [address]- 3050 Nov, Hallux valgus 735.0 and Hammer toe 735.4 [facility] [address] [address]- 5763 Oct, [facility] [address] [address]- 1832 Oct, [facility] [address] 6825 Oct, Pre-op evaluation V72.84 [facility] [id number] [place] [address] 769568- 6907 Oct, [facility] [address] 0502 Oct, [facility] [address] [address]- 5643 September, [facility] [address] [address]- 6279 September, [facility] [address] [address]- 4683 September, Hallux valgus (acquired) 735.0 and Other hammer toe ( acquired) 735.4 [facility] [address] [address]- 0920 Aug, [facility] [address] [address]- 9858 Aug, [facility] [address] [address]- 0181 Jul, [facility] [address] [address]- 7690 Jul, [facility] [address] [address]- 3487 Jul, [facility] [place] [facility] [address] [id number] [place] [address]- 3851 05 Jul, 2014 [facility] [place] [facility] [address] [id number] [place] [address]- 6294 Jul, 2014 [facility] [place] [facility] [address] [id number] [place] [address]- 5290 Jul, 2014 [facility] [place] [facility] [address] [id number] [place] [address]- 4934 Jul, 2014 [facility] [place] [facility] [address] [id number] [place] [address]- 4578 Jul, [facility] [place] [facility] [address] [id number] [place] [address]- 3930 Jun, 2014 [facility] [place] [facility] [address] [facility] [id number] [place] [address]- 4358 Jun, 2014 [facility] [place] [facility] [address] [id number] [place] [address]- 2320 Jun, 2014 [facility] [place] [facility] [address] [id number] [place] [address]- 5918 Jun, 2014 [facility] [place] [facility] [address] [facility] [id number] [place] [address]- 8497 Jun, 2014 [facility] [place] [facility] [address] [facility] [id number] [place] [address]- 8224 Jun, 2014 [facility] [place] [facility] [address] [id number] [place] [address]- 1868 Jun, 2014 [facility] [place] [facility] [address] [id number] [place] [address]- 5865 Jun, 2014 [facility] [place] [facility] [address] [id number] [place] [address]- 7163 Jun, 2014 [facility] [place] [facility] [address] [facility] [id number] [place] [address]- 8187 Jun, 2014 [facility] [place] [facility] [address] [facility] [id number] [place] [address]- 0222 May, [facility] [address] [id number] [place] [address]- 0911 May, [facility] [place] [facility] [address] [id number] [place] [address]- 0439 May, [facility] [place] [facility] [address] [id number] [place] [address]- 8080 May, [facility] [place] [facility] [address] [id number] [place] [address]- 5177 May, [facility] [place] [facility] [address] [id number] [place] [address]- 6750 May, [facility] [place] [facility] [address] [id number] [place] [address]- 6682 May, [facility] [place] [facility] [address] [id number] [place] [address]- 7506 May, [facility] [place] [facility] [address] [id number] [place] [address]- 2966 May, [facility] [place] [facility] [address] [id number] [place] [address]- 8433 May, [facility] [place] [facility] [address] [id number] [place] [address]- 9518 May, [facility] [place] [facility] [address] [id number] [place] [address]- 6107 May, [facility] [place] [facility] [address] [id number] [place] [address]- 6213 May, [facility] [place] [facility] [address] [id number] [place] [address]- 3332 May, [facility] [place] [facility] [address] [id number] [place] [address]- 4641 May, [facility] [place] [facility] [address] [id number] [place] [address]- 2931 May, [facility] [place] [facility] [address] [id number] [place] [address]- 4948 May, [facility] [place] [facility] [address] [id number] [place] [address]- 2457 May, [facility] [place] [facility] [address] [id number] [place] [address]- 7249 Apr, [facility] [place] [facility] [address] [id number] [place] [address]- 1319 Apr, [facility] [place] [facility] [address] [id number] [place] [address]- 4147 Apr, [facility] [place] [facility] [address] [id number] [place] [address]- 5585 Apr, [facility] [place] [facility] [address] [id number] [place] [address]- 0200 Apr, [facility] [place] [facility] [address] [id number] [place] [address]- 8790 Apr, [facility] [place] [facility] [address] [id number] [place] [address]- 8147 Apr, [facility] [place] [facility] [address] [id number] [place] [address]- 4441 Apr, [facility] [place] [facility] [address] [id number] [place] [address]- 7910 Apr, [facility] [place] [facility] [address] [id number] [place] [address]- 7151 Mar, [facility] [place] [facility] [address] [id number] [place] [address]- 3456 Mar, [facility] [place] [facility] [address] [id number] [place] [address]- 5498 Mar, [facility] [place] [facility] [address] [id number] [place] [address]- 6462 Mar, [facility] [place] [facility] [address] [id number] [address]- 4686 Mar, [facility] [place] [facility] [address] [id number] [place] [address]- 1482 Feb, [facility] [place] [facility] [address] [id number] [place] [address]- 9560 Feb, [facility] [place] [facility] [address] [id number] [place] [address]- 1667 Feb, [facility] [place] [facility] [address] [id number] [place] 8126 Feb, [facility] [place] [facility] [address] [id number] [place] [address]- 4649 Feb, [facility] [place] [facility] [address] [id number] [place] [address]- 8141 Feb, [facility] [place] [facility] [address] [id number] [place] [address]- 8920 Feb, [facility] [place] [facility] [address] [id number] [address]- 3310 Feb, [facility] [place] [facility] [address] [id number] [address]- 9304 Feb, [facility] [place] [facility] [address] [id number] [address]- 1852 Feb, [facility] [place] [facility] [address] [id number] [address]- 7439 Feb, [facility] [place] [facility] [address] [id number] [address]- 7637 Feb, [facility] [place] [facility] [address] [id number] [address]- 2157 Feb, [facility] [place] [facility] [address] [id number] [address]- 2567 Feb, [facility] [place] [facility] [address] [id number] [address]- 0226 Feb, [facility] [place] [facility] [address] [id number] [place] [address]- 4184 07 Feb, 2014 [facility] [place] [facility] [address] [id number] [place] [address]- 6807 23 Jan, 2014 [facility] [place] [facility] [address] [id number] [place] [address]- 7296 23 Jan, 2014 [facility] [place] [facility] [address] [id number] [place] [address]- 7066 20 Jan, 2014 [facility] [place] [facility] [address] [id number] [place] [address]- 2330 19 Jan, 2013 [facility] [place] [facility] [address] [id number] [place] [address]- 5674 Jan, [facility] [place] [facility] [address] [id number] [place] [address]- 9802 Jan, [facility] [place] [facility] [address] [id number] [place] [address]- 8331 Jan, [facility] [place] [facility] [address] [id number] [place] [address]- 9608 Jan, [facility] [place] [facility] [address] [id number] [place] [address]- 5918 Dec, [facility] [place] [facility] [address] [id number] [place] [address]- 1884 Dec, [facility] [place] [facility] [address] [id number] [place] [address]- 9496 Nov, [facility] [place] [facility] [address] [id number] [place] [address]- 2170 Nov, [facility] [place] [facility] [address] [id number] [place] [address]- 7061 Nov, [facility] [place] [facility] [address] [id number] [place] [address]- 9543 Nov, [facility] [place] [facility] [address] [id number] [place] [address]- 9578 Nov, [facility] [place] [facility] [address] [id number] [place] [address]- 1374 Nov, [facility] [place] [facility] [address] [id number] [place] [address]- 2993 Nov, [facility] [place] [facility] [address] [id number] [place] [address]- 3221 Nov, [facility] [place] [facility] [address] [id number] [place] [address]- 7553 Nov, [facility] [place] [facility] [address] [id number] [place] [address]- 6963 Oct, [facility] [place] [facility] [address] [id number] [place] [address]- 3187 Oct, [facility] [place] [facility] [address] [id number] [place] [address]- 3218 Oct, [facility] [place] [facility] [address] [id number] [place] [address]- 4168 Oct, [facility] [place] [facility] [address] [id number] [place] [address]- 6154 Oct, [facility] [place] [facility] [address] [id number] [place] [address]- 3418 Oct, [facility] [place] [facility] [address] [id number] [place] [address]- 6904 September, [facility] [place] [facility] [address] [id number] [place] [address]- 0578 September, [facility] [place] [facility] [address] [id number] [place] [address]- 5530 September, [facility] [place] [facility] [address] [id number] [place] [address]- 9339 September, [facility] [place] [facility] [address] [id number] [place] [address]- 7868 September, [facility] [place] [facility] [address] [id number] [place] [address]- 1927 September, [facility] [address] [id number] [place] [address]- 9044 September, [facility] [place] [facility] [address] [id number] [place]239 September, [facility] [place] [facility] [address] [id number] [place] [address]- 5614 September, [facility] [place] [facility] [address] [id number] [place] [address]- 0033 September, [facility] [place] [facility] [address] [id number] [place] [address]- 3964 September, [facility] [place] [facility] [address] [id number] [place] [address]- 6362 September, [facility] [address] [id number] [place] [address]- 2341 September, [facility] [place] [facility] [address] [id number] [place] [address]- 0544 September, [facility] [place] [facility] [address] [id number] [place] [address]- 1987 September, [facility] [place] [facility] [address] [id number] [place] [address]- 8541 September, [facility] [place] [facility] [address] [id number] [place] [address]- 6706 September, [facility] [place] [facility] [address] [id number] [place] [address]- 7829 September, [facility] [place] [facility] [address] [id number] [place] [address]- 4025 September, [facility] [place] [facility] [address] [id number] [place] [address]- 5184 September, [facility] [place] [facility] [address] [id number] [place] [address]- 4183 Aug, [facility] [place] [facility] [address] [id number] [place] [address]- 9290 29 Aug, 2013 [facility] [place] [facility] [address] [id number] [place] [address]- 4321 28 Aug, 2013 [facility] [place] [facility] [address] [id number] [place] [address]- 9832 28 Aug, 2013 [facility] [place] [facility] [address] [id number] [place] [address]- 1918 Aug, [facility] [place] [facility] [address] [id number] [place] [address]- 8941 18 Aug, 2013 [facility] [place] [facility] [address] [id number] [place] [address]- 4668 16 Aug, 2013 [facility] [place] [facility] [address] [id number] [place] [address]- 3523 16 Aug, 2013 [facility] [place] [facility] [address] [id number] [place] [address]- 5611 15 Aug, 2013 [facility] [place] [facility] [address] [id number] [place] [address]- 7230 15 Aug, 2013 [facility] [place] [facility] [address] [id number] [place] [address]- 9907 14 Aug, 2013 [facility] [place] [facility] [address] [id number] [place] [address]- 0793 05 Aug, 2013 [facility] [place] [facility] [address] [id number] [place] [address]- 5004 Aug, [facility] [place] [facility] [address] [id number] [place] [address]- 4918 Aug, [facility] [place] [facility] [address] [id number] [place] [address]- 9794 Aug, [facility] [place] [facility] [address] [id number] [place] [address]- 9354 Jul, [facility] [place] [facility] [address] [id number] [place] [address]- 1871 31 Jul, 2013 [facility] [place] [facility] [address] [id number] [place] [address]- 3451 Jul, [facility] [place] [facility] [address] [id number] [place] [address]- 6799 Jul, [facility] [place] [facility] [address] [id number] [place] [address]- 0307 Jul, [facility] [place] [facility] [address] [id number] [place] [address]- 0964 Jul, [facility] [place] [facility] [address] [id number] [place] [address]- 3707 Jul, [facility] [place] [facility] [address] [id number] [place] [address]- 0282 Jul, [facility] [place] [facility] [address] [id number] [place] [address]- 6073 Jul, [facility] [place] [facility] [address] [id number] [place] [address]- 9251 Jul, [facility] [place] [facility] [address] [id number] [place] [address]- 1753 Jul, [facility] [place] [facility] [address] [id number] [place] [address]- 8985 Jul, [facility] [place] [facility] [address] [id number] [place] [address]- 6700 Jul, [facility] [place] [facility] [address] [id number] [place] [address]- 2292 Jul, [facility] [place] [facility] [address] [id number] [place] [address]- 0675 Jul, [facility] [place] [facility] [address] [id number] [place] [address]- 3267 Jun, [facility] [place] [facility] [address] [id number] [place] [address]- 4244 Jun, [facility] [place] [facility] [address] [id number] [place] [address]- 8396 Jun, [facility] [address] [id number] [place] [address]- 5976 Jun, [facility] [place] [facility] [address] [id number] [place] [address]- 2686 Jun, [facility] [place] [facility] [address] [id number] [place] [address]- 9556 Jun, [facility] [place] [facility] [address] [id number] [place] [address]- 2051 May, [facility] [place] [facility] [address] [id number] [place] [address]- 9532 May, [facility] [place] [facility] [address] [id number] [place] [address]- 6141 May, [facility] [place] [facility] [address] [id number] [place] [address]- 8467 May, [facility] [address] [id number] [place] [address]- 7588 May, [facility] [place] [facility] [address] [id number] [place] [address]- 2957 May, [facility] [place] [facility] [address] [id number] [place] [address]- 7050 May, [facility] [place] [facility] [address] [id number] [place] [address]- 8803 May, [facility] [place] [facility] [address] [id number] [place] [address]- 6396 May, [facility] [place] [facility] [address] [id number] [place] [address]- 8916 May, [facility] [place] [facility] [address] [id number] [place] [address] May, [facility] [place] [facility] [address] [id number] [place] [address] May, [facility] [address] [id number] [place] [address] May, [facility] [place] [facility] [address] [id number] [place] [address] May, [facility] [place] [facility] [address] [id number] [place] [address] May, [facility] [place] [facility] [address] [id number] [place] [address] Apr, [facility] [place] [facility] [address] [id number] [place] [address] Apr, [facility] [place] [facility] [address] [id number] [place] [address] Apr, [facility] [place] [facility] [address] [id number] [place] [address] Apr, [facility] [place] [facility] [address] [id number] [place] [address] Apr, [facility] [place] [facility] [address] [id number] [place] [address]658 Apr, [facility] [place] [facility] [address] [id number] [place] [address] Apr, [facility] [place] [facility] [address] [id number] [place] [address] Apr, [facility] [place] [facility] [address] [id number] [place] [address]99 Apr, [facility] [place] [facility] [address] [id number] [place] [address] Apr, [facility] [place] [facility] [address] [id number] [place] [address] Mar, [facility] [place] [facility] [address] [id number] [place] [address] Mar, [facility] [place] [facility] [address] [id number] [address] Mar, [facility] [address] [id number] [place] [address] Mar, [facility] [place] [facility] [address] [id number] [address] Mar, [facility] [address] [id number] [address] Mar, [facility] [place] [facility] [address] [id number] [address] Mar, [facility] [address] [id number] [place] [address] 1027 Mar, [facility] [address] [id number] [address] Mar, [facility] [address] [id number] [address] Mar, [facility] [address] [id number] [address] Mar, [facility] [address] [id number] [address] Mar, [facility] [address] [id number] [address] Mar, [facility] [address] [id number] [address] Mar, [facility] [place] [facility] [address] [id number] [address] 18 Mar, 2013 [facility] [place] [facility] [address] [id number] [address] 18 Mar, 2013 [facility] [place] [facility] [address] [id number] [address] 14 Mar, 2013 [facility] [place] [facility] [address] [id number] [address] 14 Mar, 2013 [facility] [place] [facility] [address] [id number] [place] [address] Mar, [facility] [place] [facility] [address] [id number] [place] [address] 2599 Mar, [facility] [place] [facility] [address] [id number] [place] [address] Mar, [facility] [place] [facility] [address] [id number] [place] [address] 2527 Mar, [facility] [place] [facility] [address] [id number] [place] [address] Mar, [facility] [place] [facility] [address] [id number] [place] [address] Feb, [facility] [place] [facility] [address] [id number] [place] [address] Feb, [facility] [place] [facility] [address] [id number] [place] [address]484 Feb, [facility] [place] [facility] [address] [id number] [place] [address] 7813 Feb, [facility] [place] [facility] [address] [id number] [place] [address]150 15 Feb, 2013 [facility] [place] [facility] [address] [id number] [place] [address]134 Feb, [facility] [place] [facility] [address] [id number] [place] [address]702 Feb, [facility] [place] [facility] [address] [id number] [place] [address] Feb, [facility] [place] [facility] [address] [id number] [place] [address] Feb, [facility] [place] [facility] [address] [id number] [place] [address] Feb, [facility] [place] [facility] [address] [id number] [place] [address]- [address] 30 Jan, 2013 [facility] [place] [facility] [address] [id number] [place] [address] 26 Jan, 2013 [facility] [place] [facility] [address] [id number] [place] [address] 24 Jan, 2013 [facility] [place] [facility] [address] [id number] [place] [address]- [address] 23 Jan, 2013 [facility] [place] [facility] [address] [id number] [place] [address]- [address] 17 Jan, 2013 [facility] [place] [facility] [address] [id number] [place] [address] 48[address] Dec, [facility] [place] [facility] [address] [id number] [place] [address]453 Dec, [facility] [place] [facility] [address] [id number] [place] [address] 7895 Dec, [facility] [place] [facility] [address] [id number] [place] [address]687 Dec, [facility] [place] [facility] [address] [id number] [place] [address]289 Dec, [facility] [place] [facility] [address] [id number] [place] [address] Dec, [facility] [place] [facility] [address] [id number] [place] [address] 4847 Dec, [facility] [place] [facility] [address] [id number] [address] Nov, [facility] [place] [facility] [address] [id number] [place] [address] Nov, [facility] [place] [facility] [address] [id number] [place] [address] Nov, [facility] [place] [facility] [address] [id number] [place] [address] Nov, [facility] [place] [facility] [address] [id number] [place] [address] 6[address] Nov, [facility] [address] [id number] [place] [address] 6[address] Oct, [facility] [address] [id number] [place] [address] Oct, [facility] [address] [id number] [place] [address]- 18[address] Oct, [facility] [address] [id number] [place] [address] 77[address] September, [facility] [address] [id number] [place] [address] 8869 September, [facility] [address] [id number] [place] [address] September, [facility] [address] [id number] [place] [address] 40[address] September, [facility] [address] [id number] [place] [address]- 2873 September, [facility] [address] [id number] [place] [address]- 69[address] September, [facility] [address] [id number] [place] [address]- [address]146 September, [facility] [address] [id number] [place] [address]- 8850 30 Aug, 2012 [facility] [address] [id number] [place] [address]- 5264 Aug, [facility] [place] [facility] [address] [id number] [place] [address]- 5[address] Aug, [facility] [place] [facility] [address] [id number] [place] [address]- 8[address] 29 Jul, 2012 [facility] [address] [id number] [place] [address]- 4424 Jul, [facility] [place] [facility] [address] [id number] [place] [address]- 1267 26 Jul, 2012 [facility] [place] [facility] [address] [id number] [place] [address]- 6993 20 Jul, 2012 [facility] [place] [facility] [address] [id number] [place] [address]- 7976 18 Jul, 2012 [facility] [place] [facility] [address] [id number] [place] [address]- 5539 18 Jul, 2012 [facility] [place] [facility] [address] [id number] [place] [address]- 7128 13 Jul, 2012 [facility] [place] [facility] [address] [id number] [place] [address]- 8396 28 Jun, 2012 [facility] [place] [facility] [address] [id number] [place] [address]- 4268 Jun, [facility] [place] [facility] [address] [id number] [place] [address]- 2731 Jun, [facility] [place] [facility] [address] [id number] [place] [address]- 3135 Jun, [facility] [place] [facility] [address] [id number] [place] [address]- 0024 Jun, [facility] [place] [facility] [address] [id number] [place] [address]- 1332 15 Jun, 2012 [facility] [place] [facility] [address] [id number] [address] 134[address] Jun, [facility] [place] [facility] [address] [id number] [place] [address]- 0126 Jun, [facility] [place] [facility] [address] [id number] [place] [address]- 8106 Jun, [facility] [place] [facility] [address] [facility] [id number] [place] [address] Jun, [facility] [place] [facility] [address] [id number] [place] [address]- 8538 30 May, 2012 [facility] [address] [id number] [place] [address]- 9119 22 May, 2012 [facility] [address] [id number] [place] [address]- 1166 17 May, 2012 [facility] [address] [id number] [place] [address]- 7056 17 May, 2012 [facility] [address] [id number] [place] [address]- 6956 15 May, 2012 [facility] [address] [id number] [place] [address]- 8044 May, [facility] [address] [id number] [place] [address]- 4852 31 Apr, 2012 [facility] [address] [id number] [place] [address]- 3603 31 Apr, 2012 [facility] [address] [id number] [place] [address]- 3689 Apr, [facility] [address] [id number] [place] [address]- 8095 28 Apr, 2012 [facility] [address] [facility] [id number] [place] [address]- 5491 26 Apr, 2012 [facility] [address] [id number] [place] [address] 2546 Apr, [facility] [address] [id number] [place] [address] 2544 Apr, [facility] [address] [id number] [place] [address]- 0313 29 Mar, 2012 [facility] [address] [id number] [place] [address]- 4060 29 Mar, 2012 [facility] [address] [id number] [place] [address]- 1270 Mar, [facility] [place] [facility] [address] [id number] [place] [address]- 7606 Mar, [facility] [place] [facility] [address] [id number] [place] [address]- 7986 Mar, [facility] [place] [facility] [address] [id number] [place] [address]- 5976 Mar, [facility] [place] [facility] [address] [id number] [place] [address]- 8419 Mar, [facility] [place] [facility] [address] [id number] [place] [address]- 3293 Mar, [facility] [place] [facility] [address] [id number] [place] [address]- 3516 Mar, [facility] [place] [facility] [address] [facility] [id number] [place] [address]- 7923 Mar, [facility] [place] [facility] [address] [id number] [address]- 0267 Mar, [facility] [place] [facility] [address] [facility] [id number] [place] [address]- 0921 Mar, [facility] [place] [facility] [address] [facility] [id number] [address]- 2953 Mar, [facility] [place] [facility] [address] [facility] [id number] [address]- 5360 Mar, [facility] [place] [facility] [address] [id number] [place] [address]- 6483 Mar, [facility] [place] [facility] [address] [id number] [address]- 4277 Mar, [facility] [place] [facility] [address] [id number] [address]- 8192 Mar, [facility] [place] [facility] [address] [facility] [id number] [address]- 3575 Feb, [facility] [place] [facility] [address] [id number] [address]- 3818 Feb, [facility] [place] [facility] [address] [id number] [place] [address]- 6081 Feb, [facility] [place] [facility] [address] [id number] [place] [address]- 9936 17 Feb, 2012 [facility] [place] [facility] [address] [id number] [place] [address]- 5166 16 Feb, 2012 [facility] [place] [facility] [address] [id number] [place] [address]- 2907 16 Feb, 2012 [facility] [place] [facility] [address] [id number] [place] [address]- 2407 Feb, [facility] [place] [facility] [address] [id number] [place] [address]- 5948 Feb, [facility] [place] [facility] [address] [facility] [id number] [place] [address]- 6466 05 Feb, 2012 [facility] [place] [facility] [address] [facility] [id number] [place] [address]- 3001 04 Feb, 2012 [facility] [place] [facility] [address] [facility] [id number] [place] [address]- 5765 02 Feb, 2012 [facility] [place] [facility] [address] [facility] [id number] [place] [address]- 2470 27 Jan, 2012 [facility] [place] [facility] [address] [id number] [address]- 1729 25 Jan, 2012 [facility] [place] [facility] [address] [id number] [address]- 1987 13 Jan, 2012 [facility] [place] [facility] [address] [id number] [place] [address]- 4977 12 Jan, 2012 [facility] [place] [facility] [address] [facility] [id number] [place] [address]- 1226 07 Jan, 2012 [facility] [place] [facility] [address] [facility] [id number] [place] [address]- 2563 31 Dec, 2011 [facility] [place] [facility] [address] [id number] [place] [address]- 5596 Dec, [facility] [place] [facility] [address] [id number] [place] [address]- 8014 Dec, [facility] [place] [facility] [address] [id number] [place] [address]- 5736 Dec, [facility] [place] [facility] [address] [id number] [place] [address]- 3806 Dec, [facility] [place] [facility] [address] [id number] [place] [address]- 6025 Dec, [facility] [place] [facility] [address] [id number] [place] [address]- 9199 Dec, [facility] [place] [facility] [address] [id number] [place] [address]- 1174 Dec, [facility] [place] [facility] [address] [id number] [place] [address]- 2353 Nov, [facility] [place] [facility] [address] [id number] [place] [address]- 7607 Nov, [facility] [place] [facility] [address] [id number] [place] [address]- 2192 Nov, [facility] [place] [facility] [address] [id number] [place] [address]- 4538 Nov, [facility] [place] [facility] [address] [id number] [place] [address]- 7716 Nov, [facility] [place] [facility] [address] [id number] [place] [address]- 1348 Oct, [facility] [place] [facility] [address] [id number] [place] [address]- 4855 Oct, [facility] [place] [facility] [address] [id number] [place] [address]- 6785 September, [facility] [place] [facility] [address] [id number] [place] [address]- 0103 September, [facility] [address] [id number] [place] [address]- 2646 September, [facility] [place] [facility] [address] [id number] [place] [address]- 6628 September, [facility] [place] [facility] [address] [id number] [place] [address]- 9872 September, [facility] [place] [facility] [address] [id number] [place] [address]- 3398 September, [facility] [address] [id number] [place] [address]- 5947 September, [facility] [place] [facility] [address] [id number] [place] [address]- 7784 September, [facility] [place] [facility] [address] [id number] [place] [address]- 5265 September, [facility] [place] [facility] [address] [id number] [place] [address]- 8175 September, [facility] [place] [facility] [address] [id number] [place] [address]- 0691 September, [facility] [place] [facility] [address] [id number] [place] [address]- 8065 September, [facility] [place] [facility] [address] [id number] [place] [address]- 0742 September, [facility] [place] [facility] [address] [id number] [place] [address]- 0859 September, [facility] [place] [facility] [address] [id number] [place] [address]- 1992 Aug, [facility] [place] [facility] [address] [id number] [place] [address]- 0198 Aug, [facility] [place] [facility] [address] [id number] [place] [address]- 1715 Aug, [facility] [place] [facility] [address] [id number] [place] [address]- 9664 11 Aug, 2011 [facility] [address] [id number] [place] [address]- 5986 23 Jul, 2011 [facility] [address] [facility] [id number] [place] [address]- 9776 13 Jul, 2011 [facility] [address] [facility] [id number] [place] [address] 2546 13 Jul, 2011 [facility] [place] [facility] [address] [facility] [id number] [place] [address] 2542 28 Jun, 2011 [facility] [address] [facility] [id number] [id number] 26 Jun, 2011 [facility] [address] [id number] [address]- 3926 13 Jun, 2011 [facility] [address] [id number] [address]- 0936 10 Jun, 2011 [facility] [address] [id number] [address]- 7869 07 Jun, 2011 [facility] [place] [facility] [address] [id number] [address]- 5334 07 Jun, 2011 [facility] [address] [id number] [address]- 7305 03 Jun, 2011 [facility] [place] [facility] [address] [id number] [address] 2546 Jun, [facility] [place] [facility] [address] [facility] [id number] [place] [address]- 6578 May, [facility] [place] [facility] [address] [facility] [id number] [place] [address]- 8844 May, [facility] [place] [facility] [address] [facility] [id number] [place] [address] 2546 May, [facility] [place] [facility] [address] [facility] [id number] [place] [address]- 0577 May, [facility] [place] [facility] [address] [id number] [place] [address]- 3508 May, [facility] [address] [id number] [place] [address]- 1815 May, [facility] [address] [id number] [place] [address]- 9291 May, [facility] [address] [id number] [place] [address]- 5527 May, [facility] [address] [id number] [place] [address]- 8033 May, [facility] [address] [id number] [place] [address]- 6711 May, [facility] [address] [id number] [place] [address]- 5893 May, [facility] [address] [id number] [place] [address]- 4685 May, [facility] [address] [id number] [place] [address]- 4398 May, [facility] [address] [id number] [place] [address]- 0879 May, [facility] [address] [id number] [place] [address]- 9076 Apr, [facility] [address] [id number] [address]- 9216 Apr, [facility] [place] [facility] [address] [id number] [place] [address]- 5232 Apr, [facility] [place] [facility] [address] [id number] [place] [address]- 7316 Mar, [facility] [place] [facility] [address] [id number] [place] [address]- 2546 Mar, [facility] [address] [id number] [address]- 8136 31 Feb, 2011 [facility] [place] [facility] [address] [id number] [place] [address] 2546 26 Feb, 2011 [facility] [place] [facility] [address] [id number] [place] [address] 2546 21 Feb, 2011 [facility] [place] [facility] [address] [id number] [place] [address] 2546 20 Feb, 2011 [facility] [place] [facility] [address] [id number] [place] [address] 2546 13 Feb, 2011 [facility] [place] [facility] [address] [id number] [place] [address]- 3257 28 Apr, 2010 [facility] [place] [facility] [address] [id number] [place] [address]- 9566 22 Apr, 2010 [facility] [place] [facility] [address] [id number] [place] [address]- 9553 16 Apr, 2010 [facility] [place] [facility] [address] [id number] [place] [address]- 8980 15 Apr, 2010 [facility] [place] [facility] [address] [id number] [place] [address]- 7253 15 Apr, 2010 [facility] [place] [facility] [address] [id number] [place] [address] 2543 Apr, [facility] [place] [facility] [address] [id number] [address] 2549 24 Mar, 2010 [facility] [place] [facility] [address] [id number] [place] [address] 2546 17 Mar, 2010 [facility] [place] [facility] [address] [id number] [place] [address] 2546 17 Mar, 2010 [facility] [place] [facility] [address] [id number] [place] [address] 2549 28 Feb, 2010 [facility] [place] [facility] [address] [id number] [place] [address]- 4702 22 Feb, 2010 [facility] [place] [facility] [address] [id number] [address]- 1599 Feb, [facility] [address] [id number] [address]387 Feb, [facility] [address]00565100[place] [address]- 4963 Dec, [facility] [address]00565100[place] [address]- 2839 Dec, [facility] [address]00565100[place] [address]- 5047 Oct, [facility] [address]00565100[place] [address]- 2001 Mar, [facility] [address]00565100[place] [address]- 7752 Mar, [facility] [address]00565100[place] [address] [address] September, IMMUNIZATIONS No Known Immunizations SOCIAL HISTORY Never Assessed REASON FOR VISIT Prior Authorization Request/Duplicate PLAN OF CARE VITAL SIGNS MEDICATIONS Unknown [...]
--- OUTSIDE RECORDS SUMMARY | 2017-12-20 12:59 | XMS REPORT ---
Author Author VALERIE ZAVALA [facility] Address [address] [place] [address] Care Team Providers Care Handbag Operator Name Role Phone VALERIE ZAVALA Unavailable PROBLEMS Type Condition ICD9-CM Code [id number] Code Onset Dates Condition Status SNOMED Code Problem Generalized anxiety disorder F41.1 Active 26333919 Problem Hypokalemia E87.6 Active 354165814 Problem Right low back pain, with sciatica presence unspecified M54.5 Active 125339813 Problem Post-traumatic stress disorder, chronic F43.12 Active 91764462 Problem Pain in right knee M25.561 Active 61619842 Problem Gastroesophageal reflux disease without esophagitis K21.9 Active 937575839 Problem UTI symptoms R39.9 Active 70862770 Problem Essential hypertension I10 Active 49756973 Problem Anxiety F41.9 Active 54465568 Problem Neuropathy G62.9 Active 974087313 Problem Other chronic pain G89.29 Active 00245588 Problem Generalized abdominal pain R10.84 Active 745268696 Problem Chronic pain G89.29 Active 91497438 Problem Back pain M54.9 Active 598138550 Problem Right foot pain M79.671 Active 49537815 Problem Panic attacks F41.0 Active 092621096 Problem Other emphysema J43.8 Active 36742674 Problem Kidney stones N20.0 Active 26345176 Problem Renal calculus, right N20.0 Active 56381658 Problem Weight decrease R63.4 Active 909804871 Problem Tobacco abuse Z72.0 Active 19957170 Problem Bone pain M89.8X9 Active 97729946 Problem Depression, unspecified depression type F32.9 Active 49709335 Problem Insomnia, unspecified type G47.00 Active 018085495 Problem Pulmonary emphysema, unspecified emphysema type J43.9 Active 02672958 Problem Right upper quadrant abdominal pain R10.11 Active 766428810 Problem Weight loss R63.4 Active [id number] ALLERGIES No Information ENCOUNTERS Encounter Location Date Diagnosis [facility] [address], [place] [address] Nov, [facility] [id number] [place] [address] 09234- 1847 16 Nov, 2017 Pelvic pain R10.2 ; Acute pyelonephritis N10 and Essential hypertension I10 [facility] [id number] [place] [address] 52347- 0595 28 Oct, 2017 Medicare welcome exam Z00.00 [facility] [id number] [place] [address] 93650- 4211 18 Oct, 2017 Gross hematuria R31.0 ; Urinary tract infection without hematuria, site unspecified N39.0 and Weakness R53.1 [facility] [id number] [address] 4080 13 Oct, 2017 [facility] [id number] [place] [address] 15569- 2322 Oct, [facility] [id number] [place] [address] 56018- 0195 Oct, Medicare welcome exam Z00.00 [facility] [id number] [address] 6236 September, Back pain M54.9 and Right anterior knee pain M25.561 [facility] [id number] [address] 7019 September, [facility] [address], [place] [address] 5159 September, [facility] [id number] [address] 9912 September, Essential hypertension I10 [facility] [address], [place] [address] 5566 September, [facility] [id number] [place] [address] 11349- 9794 September, RLQ abdominal pain R10.31 ; Low back pain M54.5 and Other chronic pain G89.29 [facility] [id number] [place] [address] 79868- 0846 Aug, Medicare welcome exam Z00.00 [facility] [id number] [place] [address] 98811- 9279 Aug, [facility] [address] 48472- 6089 Aug, Acute pyelonephritis N10 and Medicare welcome exam Z00.00 [facility] [id number] [place] [address] 67950 -4113 Aug, Dysuria R30.0 and Acute pyelonephritis N10 [facility] [id number] [place] [address] 26921- 1267 Aug, [facility] [address] 15229- 0836 Aug, [facility] [id number] [place] [address] 60492- 9048 Aug, [facility] [id number] [place] [address] 99383- 8295 Aug, [facility] [id number] [place] [address] 91517- 4684 Jul, [facility] [id number] [place] [address] 84027- 7077 Jul, Renal calculus, right N20.0 and Medicare welcome exam Z00.00 [facility] [id number] [place] [address] 06557 -6721 Jul, Dysuria R30.0 and Renal calculus, right N20.0 [facility] [id number] [place] [address] 50340- 4064 Jul, Medicare welcome exam Z00.00 [place] [address], [place] [address] 6342 13 Jun, 2017 Gastroesophageal reflux disease without esophagitis K21.9 and Generalized abdominal pain R10.84 [place] [id number] [place] [address] 02833- 1381 09 Jun, 2017 Medicare welcome exam Z00.00 [place] [id number] [place] [address] 99992- 5157 05 Jun, 2017 [place] [id number] [place] [address] 06736- 2092 05 Jun, 2017 Medicare welcome exam Z00.00 and Encounter for screening mammogram for malignant neoplasm of breast Z12.31 [place] [id number] [place] [address] 77418- 1780 02 Jun, 2017 Chronic pain G89.29 [place] [id number] [place] [address] 32380- 0580 24 May, 2017 [place] [id number] [place] [address] 55286- 6496 May, Pelvic pain R10.2 [place] [id number] [place] [address] 79788- 6889 May, Pelvic pain R10.2 [facility] [place] [id number] [place] [address] 99344 -0831 May, Renal calculus, right N20.0 [place] [id number] [place] [address] 06620- 6277 May, Hematuria, unspecified type R31.9 and Nephrolithiasis N20.0 [facility] [place] [id number] [place] [address] 12293 -5083 May, Dysuria R30.0 and Nephrolithiasis N20.0 [place] [id number] [place] [address] 06234- 7930 May, [facility] [address], [place] [address] May, Abdominal pain R10.9 and Kidney stone N20.0 [facility] [id number] [place] [address] 28595- 3660 May, [facility] [id number] [place] [address] 13441- 2022 May, Chronic pain G89.29 and Panic attacks F41.0 [facility] [id number] [place] [address] 76772- 7550 May, Urinary tract infection without hematuria, site unspecified N39.0 [facility] [id number] [place] [address] 47923- 9530 Apr, Right lower quadrant abdominal pain R10.31 and Abnormal serum lipase level R74.8 [place] [id number] [place] [address] 52746- 9067 Apr, Recurrent urinary tract infection N39.0 [facility] [id number] [place] [address] 84699- 1910 Apr, UTI symptoms R39.9 ; Recurrent urinary tract infection N39.0 and Pelvic pain R10.2 [facility] [id number] [place] [address] 16312- 3072 Apr, Chronic pain G89.29 and Panic attacks F41.0 [facility] [id number] [place] [address] 90078- 3561 Apr, Dysuria R30.0 [facility] [id number] [place] [address] 05763- 9035 Apr, [place] [id number] [place] [address] 87347- 5159 Apr, Dysuria R30.0 and Urinary tract infection without hematuria , site unspecified N39.0 [facility] [id number] [place] [address] 02633- 8762 Mar, UTI symptoms R39.9 [facility] [id number] [place] [address] 27221- 8352 Mar, [place] [id number] [place] [address] 52639- 4167 Mar, Panic attacks F41.0 and Chronic pain G89.29 [place] [address] 62299- 9620 Mar, [place] [id number] [place] [address] 80332- 7784 Mar, Dysuria R30.0 [place] [address] 66277- 7073 Mar, Dysuria R30.0 [place] [address] 25353- 0930 Feb, Chronic pain G89.29 ; Shortness of breath R06.02 ; Weight loss R63.4 ; Encounter for immunization Z23 ; Bone pain M89.8X9 ; Right anterior knee pain M25.561 and Cough R05 [place] [address] 04988- 2782 Feb, Shortness of breath R06.02 [place] [id number] [place] [address] 40949- 1982 Feb, [place] [id number] [place] [address] 21955- 9192 Feb, Panic attacks F41.0 and Chronic pain G89.29 [place] [id number] [place] [address] 09666- 0234 Feb, [place] [address] 66585- 9412 Feb, Panic attacks F41.0 ; Shortness of breath R06.02 and Encounter for immunization Z23 [place] [address] 59775- 8386 Jan, [facility] [id number] [place] [address] 34351- 7129 Jan, Anxiety F41.9 and Chronic pain G89.29 [facility] [id number] [place] [address] 06884- 7403 Dec, Anxiety F41.9 and Chronic pain G89.29 [facility] [address] 11915- 8649 Nov, Chronic pain G89.29 [facility] [id number] [place] [address] 45149- 5136 Nov, Anxiety F41.9 [place] [id number] [place] [address] 17234- 4028 Nov, Chronic pain G89.29 ; Essential hypertension I10 and Other emphysema J43.8 [place] [id number] [place] [address] 00416- 6179 Oct, Anxiety F41.9 [facility] [id number] [place] [address] 30656- 0656 Oct, [place] [id number] [place] [address] 63930- 5858 Oct, Chronic pain G89.29 [facility] [id number] [place] [address] 28990- 3339 September, Recurrent UTI N39.0 ; Neuropathy G62.9 and Anxiety F41.9 [facility] [id number] [place] [address] 99924- 9720 September, [facility] [id number] [place] [address] 69150- 1029 September, Chronic pain G89.29 [facility] [id number] [place] [address] 00309- 5696 September, [facility] [id number] [address]- 1224 Aug, Post-traumatic stress disorder, chronic F43.12 ; Chronic urinary tract infection N39.0 ; Gastroesophageal reflux disease without esophagitis K21.9 ; Chronic pain G89.29 ; Essential hypertension I10 and Tobacco abuse Z72.0 [facility] [address], [place] [address] -4346 Aug, [facility] [id number] [place] [address] 94484 2546 Aug, Chronic pain G89.29 [facility] [id number] [place] [address] 18468- 5676 Aug, Insomnia, unspecified type G47.00 [facility] [address], [place] [address]- 1646 Aug, [facility] [id number] [place] [address] 52388- 5889 Jul, Chronic pain G89.29 [facility] [address], [place] [address]- 6601 Jul, [facility] [id number] [address]- 6694 Jul, [facility] [address], [place] [address]- 8268 Jul, [facility] [address], [place] [address]- 2547 15 Jul, 2016 Recurrent UTI (urinary tract infection) N39.0 [facility] [address], [place] [address]- 2546 14 Jul, 2016 [facility] [address], [place] [address]- 2546 Jun, Chronic pain G89.29 [facility] [address], [place] [address]- 2546 Jun, [facility] [id number] [place] [address] 56881- 5615 Jun, [facility] [address] 09933- 2511 May, Chronic pain G89.29 [place] [id number] [place] [address] 66439- 2087 May, Weight loss R63.4 and Shortness of breath R06.02 [facility] [address] 48253- 5231 May, Chronic pain G89.29 ; Weight loss R63.4 and Tobacco abuse Z72.0 [place] [address] 63349- 6367 May, [place] [id number] [place] [address] 96469- 9323 May, Hypoxia R09.02 [facility] [address] 49210- 8513 May, [facility] [id number] [place] [address] 30059- 2079 May, Pulmonary emphysema, unspecified emphysema type J43.9 [facility] [id number] [place] [address] 62714 -1552 May, [facility] [id number] [place] [address] 02987- 5724 May, [facility] [id number] [place] [address] 53425- 0096 May, [facility] [id number] [place] [address] 80607- 7846 May, Chronic pain G89.29 ; Encounter for immunization Z23 ; Right anterior knee pain M25.561 and Cough R05 [facility] [id number] [place] [address] 95189- 3936 Apr, Chronic pain G89.29 [place] [id number] [place] [address] 05714- 6857 Apr, [facility] [id number] [place] [address] 08929- 8659 Apr, Generalized anxiety disorder F41.1 and Depression, unspecified depression type F32.9 [facility] [id number] [place] [address] 37371- 5936 Apr, Chronic pain G89.29 ; Hypokalemia E87.6 and Insomnia, unspecified type G47.00 [facility] [id number] [place] [address] 93050- 2264 Apr, [facility] [id number] [place] [address] 63464- 4425 Apr, Chronic pain G89.29 [facility] [id number] [place] [address] 17613- 3108 Apr, [facility] [id number] [place] [address] 26068- 5657 Mar, [facility] [id number] [place] [address] 18929- 0472 Mar, Insomnia, unspecified type G47.00 [facility] [id number] [place] [address] 61927- 4929 Mar, Chronic pain G89.29 [facility] [id number] [place] [address] 58394- 4031 Mar, [facility] [id number] [place] [address] 57272- 7619 Feb, [facility] [id number] [place] [address] 61749- 5420 Feb, [facility] [id number] [place] [address] 88578- 5360 Feb, [facility] [id number] [place] [address] 23382- 2539 Feb, [facility] [address], [place] [address]- 4130 Feb, [facility] [id number] [place] [address] 94281- 6330 Jan, [facility] [id number] [place] [address] 74194- 4385 Jan, [facility] [id number] [place] [address] 15163- 6548 Jan, [facility] [id number] [place] [address] 96718- 6203 13 Jan, 2016 [facility] [id number] [place] [address] 29846- 8308 Jan, [facility] [id number] [place] [address] 37192- 9541 Jan, Chronic pain G89.29 [facility] [id number] [place] [address] 42591- 8603 Jan, Chronic pain G89.29 and Fibromyalgia M79.7 [facility] [id number] [place] [address] 74153- 9333 Dec, Depression, unspecified depression type F32.9 and Generalized anxiety disorder 300.02 [facility] [id number] [place] [address] 38210- 3036 Dec, Dysthymia F34.1 ; Insomnia, unspecified type G47.00 and Chronic pain G89.29 [facility] [address], [place] [address]- 0764 Dec, Chronic pain G89.29 [facility] [id number] [place] [address] 66934- 0224 Dec, Insomnia, unspecified type G47.00 [facility] [id number] [place] [address] 50301- 6872 Dec, Fibromyalgia M79.7 and Chronic pain G89.29 [facility] [address] [facility] [id number] [address]- 4282 Dec, [facility] [address] [facility] [id number] [place] [address] 84023- 0381 Dec, [facility] [address] [facility] [id number] [place] [address] 29890- 6702 Dec, [facility] [address] [facility] [id number] [place] [address] 47236- 1122 Dec, [facility] [address] [facility] [id number] [place] [address] 90090- 5913 Dec, Chronic pain G89.29 [facility] [address] [id number] [place] [address] 26313- 1623 Dec, [facility] [id number] [place] [address] 20140- 5675 Dec, [facility] [address] [facility] [id number] [place] [address] 28763- 6257 Dec, [facility] [id number] [place] [address] 62981- 2030 Dec, Chronic pain G89.29 and Dysthymia F34.1 [facility] [id number] [place] [address] 96400- 7322 Nov, [facility] [id number] [place] [address] 08996- 9619 Nov, Hypokalemia E87.6 and Chronic pain G89.29 [facility] [address] [facility] [id number] [place] [address] 90869- 0892 Nov, Back pain M54.9 and Pain in right knee M25.561 [facility] [address] [facility] [id number] [address]- 3659 Nov, [facility] [id number] [place] [address] 82983- 3510 Nov, Chronic pain G89.29 [facility] [id number] [place] [address] 83730 2546 Nov, Chronic pain G89.29 ; Weight loss R63.4 ; Bone pain M89.8X9 and Insomnia, unspecified type G47.00 [facility] [id number] [place] [address] [phone] Nov, Chronic pain G89.29 [facility] [id number] [place] [address] [id number] 2546 Nov, Chronic pain G89.29 [facility] [id number] [place] [address] [id number] 2546 Oct, Chronic pain G89.29 [facility] [id number] [place] [address] [phone] Oct, UTI symptoms R39.9 [facility] [id number] [place] [address] [id number] 2542 Oct, Chronic pain G89.29 [facility] [id number] [place] [address] [phone]- [phone] Oct, Chronic pain G89.29 [facility] [id number] [place] [address] [id number] 2546 Oct, Chronic pain G89.29 [facility] [id number] [place] [address] [id number] 2546 Oct, Right upper quadrant abdominal pain R10.11 [facility] [id number] [place] [address] [id number] 2546 Oct, Chronic pain G89.29 [facility] [id number] [place] [address] [id number] 2546 Oct, [facility] [id number] [place] [address] [phone]- [phone] September, Chronic pain G89.29 [facility] [id number] [address] September, Dysuria R30.0 and Urinary tract infection without hematuria , site unspecified N39.0 [facility] [address] [address] September, [facility] [address] [address] [address] September, Dysuria R30.0 [facility] [id number] [place] [address] 12585- 3305 September, Chronic pain G89.29 [facility] [id number] [place] [address] 10203- 8702 September, Chronic pain G89.29 and Essential hypertension I10 [facility] [id number] [place] [address] 92384- 8151 September, [facility] [id number] [place] [address] 59079- 4617 September, [facility] [id number] [place] [address] 24763- 8364 September, [facility] [id number] [place] [address] 89195- 3484 Aug, UTI symptoms R39.9 [facility] [address], [place] [address] Aug, Dysuria R30.0 [facility] [address], [place] [address] 8469 Aug, [facility] [address], [place] [address] 0555 Aug, [facility] [address] [address] 1071 Aug, [facility] [address], [place] [address] 2373 Aug, Chronic pain G89.29 [facility] [address], [place] [address] 2344 Aug, Dysthymia F34.1 [facility] [id number] [place] [address] 74912- 0116 Aug, Conjunctivitis, unspecified conjunctivitis type, unspecified laterality H10.9 [facility] [id number] [place] [address] 96584- 0753 31 Jul, 2015 Chronic pain G89.29 ; Back pain M54.9 ; Tobacco abuse Z72.0 and Weight decrease R63.4 [facility] [id number] [place] [address] 65496- 9096 30 Jul, 2015 [facility] [id number] [place] [address] 62789- 7766 30 Jul, 2015 [facility] [id number] [place] [address] 20027- 0767 24 Jul, 2015 Chronic pain G89.29 [facility] [id number] [place] [address] 57830- 8252 22 Jul, 2015 [facility] [id number] [place] [address] 92286 254 21 Jul, 2015 [facility] [id number] [place] [address] 71721- 8989 18 Jul, 2015 [facility] [id number] [place] [address] 82820 2549 17 Jul, 2015 [facility] [id number] [place] [address] 40634 2542 17 Jul, 2015 Chronic pain G89.29 [facility] [id number] [place] [address] 74537 2546 16 Jul, 2015 Chronic pain G89.29 [facility] [id number] [place] [address] 22880- 1725 15 Jul, 2015 [facility] [id number] [place] [address] 53022- 4105 Jul, [facility] [id number] [place] [address] 29195- 6169 Jul, [facility] [id number] [place] [address] 16035- 9031 Jul, [facility] [address] 75499- 8391 Jun, [facility] [address] 74662- 1317 Jun, Depression, unspecified depression type F32.9 [place] [address] 02238- 4356 Jun, Pain in right knee M25.561 [place] [address] 19460- 8149 Jun, Chronic pain G89.29 ; Back pain M54.9 ; Bone pain M89.8X9 and Weight loss R63.4 [facility] [id number] [place] [address] 97352- 5493 Jun, [facility] [id number] [place] [address] 90797- 8391 May, [facility] [id number] [place] [address] 67144- 5056 May, UTI symptoms R39.9 ; Pain in right knee M25.561 ; Right low back pain, with sciatica presence unspecified M54.5 ; Right foot pain M79.671 ; Hypokalemia E87.6 and Screening, lipid Z13.220 [facility] [id number] [place] [address] 92155- 2812 May, [facility] [id number] [place] [address] 56515- 4316 May, [facility] [address] 77036- 5265 Mar, [facility] [id number] [place] [address] 71745- 3466 Mar, [facility] [id number] [place] [address] 61476- 0316 Mar, Hypokalemia E87.6 [facility] [id number] [place] [address] 23313- 7826 Mar, Pain in right leg M79.604 ; Encounter for immunization Z23 ; Pain in right knee M25.561 and Hypokalemia E87.6 [facility] [id number] [place] [address] 87375- 6136 Jan, [facility] [id number] [place] [address] 64700- 3356 Jan, [facility] [id number] [place] [address] 19923- 0093 Jan, Abdominal pain, generalized 789.07 [facility] [id number] [place] [address] 25965- 7184 Jan, Abdominal pain, generalized 789.07 [facility] [id number] [place] [address] 26539- 1586 Dec, [facility] [id number] [place] [address] 71030- 7148 Dec, [facility] [id number] [place] [address] 73432- 1072 Dec, [facility] [id number] [place] [address] 52237- 3050 Nov, Hallux valgus 735.0 and Hammertoe 735.4 [facility] [id number] [place] [address] 62764- 5786 Nov, [facility] [id number] [place] [address] 47714- 1789 Nov, Hallux valgus 735.0 and Hammer toe 735.4 [facility] [address], [place] [address]- 2447 Oct, [facility] [address] [address] 3957 Oct, [facility] [address], [place] [address]- 3653 Oct, Pre-op evaluation V72.84 [facility] [address], [place] [address]- 7590 Oct, [facility] [id number] [place] [address] 884493- 6206 Oct, [facility] [address], [place] [address]- 3949 September, [facility] [id number] [place] [address] 13617- 4066 September, [facility] [address], [place] [address]- 5361 September, Hallux valgus (acquired) 735.0 and Other hammer toe ( acquired) 735.4 [facility] [address] [address]- 5289 Aug, [facility] [address], [place] [address]- 2997 Aug, [facility] [address], [place] [address]- 2253 Jul, [facility] [address], [place] [address]- 1062 Jul, [facility] [address] 2237 Jul, [facility] [address] 5050 Jul, [facility] [place] [facility] [address] [id number] [place] [address]- 2244 Jul, [facility] [place] [facility] [address] [id number] [place] [address]- 8693 Jul, [facility] [place] [facility] [address] [id number] [place] [address]- 2428 Jul, [facility] [place] [facility] [address] [id number] [place] [address]- 7523 Jul, [facility] [place] [facility] [address] [id number] [place] [address]- 1172 Jun, 2014 [facility] [place] [facility] [address] [id number] [place] [address]- 9994 Jun, 2014 [facility] [place] [facility] [address] [id number] [place] [address]- 0698 Jun, 2014 [facility] [place] [facility] [address] [id number] [place] [address]- 1313 Jun, 2014 [facility] [place] [facility] [address] [id number] [place] [address]- 9801 Jun, [facility] [place] [facility] [address] [id number] [place] [address]- 3721 Jun, [facility] [place] [facility] [address] [id number] [place] [address]- 5577 Jun, 2014 [facility] [place] [facility] [address] [id number] [place] [address]- 7502 Jun, 2014 [facility] [place] [facility] [address] [id number] [place] [address]- 7149 Jun, [facility] [place] [facility] [address] [id number] [place] [address]- 0453 Jun, [facility] [place] [facility] [address] [id number] [place] [address]- 5849 May, [facility] [place] [facility] [address] [id number] [place] [address]- 6441 May, [facility] [address] [id number] [place] [address]- 5400 May, [facility] [place] [facility] [address] [id number] [place] [address]- 3438 May, [facility] [place] [facility] [address] [id number] [place] [address]- 0846 May, [facility] [place] [facility] [address] [id number] [place] [address]- 3792 May, [facility] [place] [facility] [address] [id number] [place] [address]- 1639 May, [facility] [place] [facility] [address] [id number] [place] [address]- 6888 May, [facility] [place] [facility] [address] [id number] [place] [address]- 8362 May, [facility] [place] [facility] [address] [id number] [place] [address]- 5801 May, [facility] [place] [facility] [address] [id number] [place] [address]- 8589 May, [facility] [place] [facility] [address] [id number] [place] [address]- 5030 May, [facility] [place] [facility] [address] [id number] [place] [address]- 2408 May, [facility] [place] [facility] [address] [id number] [place] [address]- 4012 May, [facility] [place] [facility] [address] [id number] [place] [address]- 6450 May, [facility] [place] [facility] [address] [id number] [place] [address]- 8485 May, [facility] [place] [facility] [address] [id number] [place] [address]- 3981 May, [facility] [place] [facility] [address] [id number] [place] [address]- 1714 May, [facility] [place] [facility] [address] [id number] [place] [address]- 5328 Apr, [facility] [place] [facility] [address] [id number] [place] 4162 Apr, [facility] [place] [facility] [address] [id number] [place] [address]- 0605 Apr, [facility] [place] [facility] [address] [id number] [place] [address]- 5937 Apr, [facility] [place] [facility] [address] [id number] [place] [address]- 5223 Apr, [facility] [place] [facility] [address] [id number] [place] [address]- 0910 Apr, [facility] [place] [facility] [address] [id number] [place] [address]- 1506 Apr, [facility] [place] [facility] [address] [id number] [place] [address]- 6213 Apr, [facility] [place] [facility] [address] [id number] [place] [address]- 1741 Apr, [facility] [place] [facility] [address] [id number] [place] [address]- 3617 Mar, [facility] [place] [facility] [address] [id number] [place] [address]- 1850 Mar, [facility] [place] [facility] [address] [id number] [place] [address]- 9642 Mar, [facility] [place] [facility] [address] [id number] [place] [address]- 2608 Mar, [facility] [place] [facility] [address] [id number] [place] [address]- 8956 Mar, [facility] [place] [facility] [address] [id number], [place] [address]- 5327 Feb, 2013 [facility] [place] [facility] [address] [id number] [place] [address]- 4362 Feb, 2013 [facility] [place] [facility] [address] [id number] [place] 9235 Feb, 2013 [facility] [place] [facility] [address] [id number] [place] [address]- 3791 Feb, 2013 [facility] [place] [facility] [address] [id number] [place] [address]- 3354 Feb, 2013 [facility] [place] [facility] [address] [id number] [place] [address]- 1909 Feb, 2013 [facility] [place] [facility] [address] [id number] [place] [address]- 1620 Feb, 2013 [facility] [place] [facility] [address] [id number], [place] [address]- 0190 Feb, 2013 [facility] [place] [facility] [address] [id number], [place] [address]- 0647 Feb, 2013 [facility] [place] [facility] [address] [id number], [place] [address]- 0661 Feb, 2013 [facility] [place] [facility] [address] [id number], [place] [address]- 6846 Feb, 2013 [facility] [place] [facility] [address] [id number], [place] [address]- 0468 Feb, 2013 [facility] [place] [facility] [address] [id number], [place] [address]- 1587 Feb, 2013 [facility] [place] [facility] [address] [id number], [place] [address]- 7610 Feb, 2013 [facility] [place] [facility] [address] [id number], [place] [address]- 3026 Feb, 2013 [facility] [place] [facility] [address] [id number], [place] [address]- 4463 Feb, 2013 [facility] [place] [facility] [address] [id number] [place] [address]- 5132 23 Jan, 2013 [facility] [place] [facility] [address] [id number] [place] [address]- 4726 23 Jan, 2013 [facility] [place] [facility] [address] [id number] [place] [address]- 3956 20 Jan, 2013 [facility] [place] [facility] [address] [id number] [place] [address]- 4386 19 Jan, 2013 [facility] [place] [facility] [address] [id number] [place] [address]- 2548 11 Jan, 2013 [facility] [place] [facility] [address] [id number] [place] [address]- 4684 11 Jan, 2013 [facility] [place] [facility] [address] [id number] [place] [address]- 7172 Jan, [facility] [place] [facility] [address] [id number] [place] [address]- 4334 Jan, 2013 [facility] [place] [facility] [address] [id number] [place] [address]- 2987 Dec, [facility] [place] [facility] [address] [id number] [place] [address]- 2794 Dec, [facility] [place] [facility] [address] [id number] [place] [address]- 7711 Nov, [facility] [place] [facility] [address] [id number] [place] [address]- 5338 Nov, [facility] [place] [facility] [address] [id number] [place] [address]- 4194 Nov, [facility] [place] [facility] [address] [id number] [place] [address]- 9677 Nov, [facility] [place] [facility] [address] [id number] [place] [address]- 2798 Nov, [facility] [place] [facility] [address] [id number] [place] [address]- 8271 Nov, [facility] [place] [facility] [address] [id number] [place] [address]- 1009 Nov, [facility] [place] [facility] [address] [id number] [place] [address]- 8573 Nov, [facility] [place] [facility] [address] [id number] [place] [address]- 2373 Nov, [facility] [place] [facility] [address] [id number] [place] [address]- 8483 Oct, [facility] [place] [facility] [address] [id number] [place] [address]- 4872 Oct, [facility] [place] [facility] [address] [id number] [place] [address]- 4860 Oct, [facility] [place] [facility] [address] [id number] [place] [address]- 2082 Oct, [facility] [place] [facility] [address] [id number] [place] [address]- 9468 Oct, [facility] [place] [facility] [address] [id number] [place] [address]- 2798 Oct, [facility] [place] [facility] [address] [id number] [place] [address]- 6147 September, [facility] [place] [facility] [address] [id number] [place] [address]- 1082 September, [facility] [place] [facility] [address] [id number] [place] [address]- 7157 September, [facility] [place] [facility] [address] [id number] [place] [address]- 5921 September, [facility] [place] [facility] [address] [id number] [place] [address]- 0766 September, [facility] [place] [facility] [address] [id number] [place] [address]- 9117 September, [facility] [place] [facility] [address] [id number] [place] [address]- 9250 September, [facility] [address] [id number] [place] [address]- 6086 September, [facility] [place] [facility] [address] [id number] [place] [address]- 5747 September, [facility] [place] [facility] [address] [id number] [place] [address]- 3172 September, [facility] [place] [facility] [address] [id number] [place] [address]- 4952 September, [facility] [place] [facility] [address] [id number] [place] [address]- 8453 September, [facility] [place] [facility] [address] [id number] [place] [address]- 7127 September, [facility] [place] [facility] [address] [id number] [place] [address]- 1487 September, [facility] [place] [facility] [address] [id number] [place] [address]- 1724 September, [facility] [place] [facility] [address] [id number] [place] [address]- 3750 September, [facility] [place] [facility] [address] [id number] [place] [address]- 5780 September, [facility] [place] [facility] [address] [id number] [place] [address]- 6768 September, [facility] [place] [facility] [address] [id number] [place] [address]- 6350 September, [facility] [place] [facility] [address] [id number] [place]24 September[facility] [place] [facility] [address] [id number] [place] [address]- 2957 Aug, [facility] [place] [facility] [address] [id number] [place] [address]- 8848 Aug, [facility] [place] [facility] [address] [id number] [place] [address]- 6554 28 Aug, 2013 [facility] [place] [facility] [address] [id number] [place] [address]- 3722 28 Aug, 2013 [facility] [place] [facility] [address] [id number] [place] [address]- 8209 18 Aug, 2013 [facility] [place] [facility] [address] [id number] [place] [address]- 1325 18 Aug, 2013 [facility] [place] [facility] [address] [id number] [place] [address] 16 Aug, 2013 [facility] [place] [facility] [address] [id number] [place] [address] 16 Aug, 2013 [facility] [place] [facility] [address] [id number] [place] [address] 15 Aug, 2013 [facility] [place] [facility] [address] [id number] [place] [address] 15 Aug, 2013 [facility] [place] [facility] [address] [id number] [place] [address] 14 Aug, 2013 [facility] [place] [facility] [address] [id number] [place] [address] 05 Aug, 2013 [facility] [place] [facility] [address] [id number] [place] [address]66 Aug, [facility] [place] [facility] [address] [id number] [place] [address] 48[address] Aug, [facility] [place] [facility] [address] [id number] [place] [address] Aug, [facility] [place] [facility] [address] [id number] [place] [address] Jul, [facility] [place] [facility] [address] [id number] [place] [address] Jul, [facility] [place] [facility] [address] [id number] [place] [address] Jul, [facility] [place] [facility] [address] [id number] [place] [address] 1164 Jul, [facility] [place] [facility] [address] [id number] [place] [address]61 Jul, [facility] [place] [facility] [address] [id number] [place] [address]- 3727 Jul, [facility] [place] [facility] [address] [id number] [place] [address] 9700 Jul, [facility] [place] [facility] [address] [id number] [place] [address] 4008 Jul, [facility] [place] [facility] [address] [id number] [place] [address]- 81[address] Jul, [facility] [place] [facility] [address] [id number] [place] [address] 4227 Jul, [facility] [place] [facility] [address] [id number] [place] [address] Jul, [facility] [place] [facility] [address] [id number] [place] [address] 6763 Jul, [facility] [place] [facility] [address] [id number] [place] [address] Jul, [facility] [place] [facility] [address] [id number] [place] [address] 1487 Jul, [facility] [place] [facility] [address] [id number] [place] [address] 4434 Jul, [facility] [place] [facility] [address] [id number] [place] [address]653 Jun, [facility] [place] [facility] [address] [id number] [place] [address]32 Jun, [facility] [place] [facility] [address] [id number] [place] [address]- 0185 Jun, [facility] [place] [facility] [address] [id number] [place] [address]- 7415 Jun, [facility] [address] [id number] [place] [address]- 4946 Jun, [facility] [place] [facility] [address] [id number] [place] [address]- 9506 Jun, [facility] [address] [id number] [place] [address] 4706 May, [facility] [place] [facility] [address] [id number] [place] [address]005 May, [facility] [address] [id number] [place] [address] 8112 May, [facility] [place] [facility] [address] [id number] [place] [address] May, [facility] [address] [id number] [place] [address] 9913 May, [facility] [address] [id number] [place] [address] 6029 May, [facility] [place] [facility] [address] [id number] [place] [address] 5547 May, [facility] [address] [id number] [place] [address]- 1605 May, [facility] [place] [facility] [address] [id number] [place] [address] 2429 May, [facility] [place] [facility] [address] [id number] [place] [address] 350[address] May, [facility] [place] [facility] [address] [id number] [place] [address]- 8265 May, [facility] [place] [facility] [address] [id number] [place] [address]- 7846 May, [facility] [place] [facility] [address] [id number] [place] [address]- 0248 May, [facility] [address] [id number] [place] [address]- 1003 May, [facility] [place] [facility] [address] [id number] [place] [address]- [address] May, [facility] [place] [facility] [address] [id number] [place] [address]- 3350 Apr, [facility] [place] [facility] [address] [id number] [place] [address]- 1487 Apr, [facility] [place] [facility] [address] [id number] [place] [address]- 4451 Apr, [facility] [place] [facility] [address] [id number] [place] [address]- 6419 Apr, [facility] [place] [facility] [address] [id number] [place] [address]- 3437 Apr, [facility] [place] [facility] [address] [id number] [place] [address]- 2795 Apr, [facility] [place] [facility] [address] [id number] [place] [address]- 0323 Apr, [facility] [place] [facility] [address] [id number] [place] [address]- 3775 Apr, [facility] [place] [facility] [address] [id number] [place] [address]- 2266 Apr, [facility] [place] [facility] [address] [id number] [place] [address]- 4379 Apr, [facility] [place] [facility] [address] [id number] [place] [address] 8630 Mar, [facility] [place] [facility] [address] [id number] [place] [address] 6696 Mar, [facility] [place] [facility] [address] [id number] [place] [address]- 2635 Mar, [facility] [place] [facility] [address] [address] [id number], [place] [address] Mar, [facility] [address] [id number] [place] [address] Mar, [facility] [place] [facility] [address] [id number], [place] [address] Mar, [facility] [address] [id number] [place] [address] 2023 Mar, [facility] [place] [facility] [address] [id number] [place] [address] 4299 Mar, [facility] [address] [id number] [place] [address] 2157 Mar, [facility] [place] [facility] [address] [id number] [place] [address]- 2081 Mar, [facility] [address] [id number], [place] [address] 64[address] Mar, [facility] [place] [facility] [address] [id number], [place] [address] 5[address] Mar, [facility] [address] [id number] [place] [address]- 7410 Mar, [facility] [address] [id number], [place] [address] Mar, [facility] [address] [id number], [place] [address] 268[address] 18 Mar, 2013 [facility] [place] [facility] [address] [id number], [place] [address] 1989 18 Mar, 2013 [facility] [place] [facility] [address] [id number], [place] [address] 2457 14 Mar, 2013 [facility] [place] [facility] [address] [id number], [place] [address] 7189 14 Mar, 2013 [facility] [place] [facility] [address] [id number], [place] [address] 12 Mar, 2013 [facility] [place] [facility] [address] [id number] [place] [address] 9820 Mar, [facility] [place] [facility] [address] [id number] [place] [address]- 9767 Mar, [facility] [place] [facility] [address] [id number] [place] [address]- 7529 Mar, [facility] [place] [facility] [address] [id number] [place] [address]- 0918 Mar, [facility] [place] [facility] [address] [id number] [place] [address] Feb, [facility] [place] [facility] [address] [id number] [place] [address]- 7236 Feb, [facility] [place] [facility] [address] [id number] [place] [address] Feb, [facility] [place] [facility] [address] [id number] [place] [address]- 6380 Feb, [facility] [place] [facility] [address] [id number] [place] [address]- 3821 Feb, [facility] [place] [facility] [address] [id number] [place] [address]- 8460 Feb, [facility] [place] [facility] [address] [id number] [place] [address]- 3677 Feb, [facility] [place] [facility] [address] [id number] [place] [address]- 3682 Feb, [facility] [place] [facility] [address] [id number] [place] [address]- 1363 Feb, [facility] [place] [facility] [address] [id number] [place] [address]- 9742 Feb, [facility] [place] [facility] [address] [id number] [place] [address]- 2994 30 Jan, 2013 [facility] [place] [facility] [address] [id number] [place] [address]- 7990 26 Jan, 2013 [facility] [place] [facility] [address] [id number] [place] [address]- 8497 24 Jan, 2013 [facility] [place] [facility] [address] [id number] [place] [address]- 4365 23 Jan, 2013 [facility] [place] [facility] [address] [id number] [place] [address] Jan, [facility] [place] [facility] [address] [id number] [place] [address]- 7831 Dec, [facility] [place] [facility] [address] [id number] [place] [address]- 2322 Dec, [facility] [place] [facility] [address] [id number] [place] [address]- 3674 Dec, [facility] [place] [facility] [address] [id number] [place] [address]- 0407 Dec, [facility] [place] [facility] [address] [id number] [place] [address]- 9323 Dec, [facility] [place] [facility] [address] [id number] [place] [address]- 2497 Dec, [facility] [place] [facility] [address] [id number] [place] [address]- 3789 Dec, [facility] [place] [facility] [address] [id number] [place] [address]- 7920 Nov, [facility] [place] [facility] [address] [id number], [place] [address] 9024 Nov, [facility] [place] [facility] [address] [id number] [place] [address]- 2138 Nov, [facility] [place] [facility] [address] [id number] [place] [address]- 7256 Nov, [facility] [place] [facility] [address] [id number] [place] [address]- 0440 Nov, [facility] [place] [facility] [address] [id number] [place] [address]- 1908 18 Oct, 2012 [facility] [address] [id number] [place] [address]- 2896 14 Oct, 2012 [facility] [address] [id number] [place] [address]- 0075 06 Oct, 2012 [facility] [address] [id number] [place] [address]- 3398 September, [facility] [address] [id number] [place] [address]- 8572 September, [facility] [address] [id number] [place] [address]- 5750 September, [facility] [address] [id number] [place] [address]- 3114 September, [facility] [address] [id number] [place] [address]- 4349 September, [facility] [address] [id number] [place] [address]- 7764 September, [facility] [address] [id number] [place] [address]- 2904 September, [facility] [address] [id number] [place] [address]- 6878 Aug, [facility] [address] [id number] [place] [address]- 5622 Aug, [facility] [address] [id number] [place] [address]- 9225 Aug, [facility] [place] [facility] [address] [id number] [place] [address]- 0562 29 Jul, 2012 [facility] [place] [facility] [address] [id number] [place] [address]- 2398 Jul, [facility] [address] [id number] [place] [address]- 2370 Jul, [facility] [place] [facility] [address] [id number] [place] [address]- 6091 20 Jul, 2012 [facility] [place] [facility] [address] [id number] [place] [address]- 7246 18 Jul, 2012 [facility] [place] [facility] [address] [id number] [place] [address]- 7573 18 Jul, 2012 [facility] [place] [facility] [address] [id number] [place] [address]- 3621 Jul, [facility] [address] [id number] [place] [address]- 2741 28 Jun, 2012 [facility] [place] [facility] [address] [id number] [place] [address]- 0214 Jun, [facility] [address] [id number] [place] [address]- 4887 Jun, [facility] [place] [facility] [address] [id number] [place] [address]- 7854 Jun, [facility] [place] [facility] [address] [id number] [place] [address]- 8653 15 Jun, 2012 [facility] [place] [facility] [address] [id number] [place] [address]- 6918 Jun, [facility] [place] [facility] [address] [id number] [place] [address]- 2922 Jun, [facility] [place] [facility] [address] [id number] [place] [address]- 2541 Jun, [facility] [place] [facility] [address] [id number] [place] [address]- 5520 Jun, [facility] [place] [facility] [address] [id number] [place] [address]- 4733 Jun, [facility] [place] [facility] [address] [id number] [place] [address]- 8808 May, [facility] [place] [facility] [address] [id number] [place] [address]- 0714 22 May, 2012 [facility] [address] [id number] [place] [address]- 9846 17 May, 2012 [facility] [address] [id number] [place] [address]- 3886 17 May, 2012 [facility] [address] [id number] [place] [address]- 5526 15 May, 2012 [facility] [address] [id number] [place] [address]- 5050 07 May, 2012 [facility] [address] [id number] [place] [address] 31 Apr, 2012 [facility] [address] [id number] [place] [address]- 5697 31 Apr, 2012 [facility] [address] [id number] [place] [address]- 8288 Apr, [facility] [address] [id number] [place] [address]- 3646 28 Apr, 2012 [facility] [address] [id number] [place] [address]- 9726 26 Apr, 2012 [facility] [address] [id number] [place] [address]- 0924 20 Apr, 2012 [facility] [address] [id number] [place] [address] 2546 Apr, [facility] [address] [id number] [place] [address]- 2549 29 Mar, 2012 [facility] [address] [id number] [place] [address]- 2012 29 Mar, 2012 [facility] [address] [id number] [place] [address]- 7287 27 Mar, 2012 [facility] [address] [id number] [place] [address]- 7722 Mar, [facility] [place] [facility] [address] [id number] [place] [address]- 1386 Mar, [facility] [place] [facility] [address] [id number] [place] [address]- 7609 Mar, [facility] [place] [facility] [address] [id number] [place] [address]- 9471 Mar, [facility] [place] [facility] [address] [id number] [place] [address]- 0358 Mar, [facility] [place] [facility] [address] [id number] [place] [address]- 7003 Mar, [facility] [place] [facility] [address] [id number] [place] [address]- 9864 Mar, [facility] [place] [facility] [address] [facility] [id number] [place] [address]- 2782 Mar, [facility] [place] [facility] [address] [id number], [place] [address]- 3089 Mar, [facility] [place] [facility] [address] [facility] [id number], [place] [address]- 2257 Mar, [facility] [place] [facility] [address] [facility] [id number], [place] [address]- 8862 Mar, [facility] [place] [facility] [address] [facility] [id number], [place] [address]- 1924 Mar, [facility] [place] [facility] [address] [id number], [place] [address]- 7628 Mar, [facility] [place] [facility] [address] [id number], [place] [address]- 2124 Mar, [facility] [place] [facility] [address] [id number], [place] [address]- 3359 Feb, [facility] [place] [facility] [address] [facility] [id number], [place] [address]- 7009 Feb, [facility] [place] [facility] [address] [id number], [place] [address]- 5647 17 Feb, 2012 [facility] [place] [facility] [address] [id number] [place] [address]- 9101 17 Feb, 2012 [facility] [place] [facility] [address] [id number] [place] [address]- 8476 16 Feb, 2012 [facility] [place] [facility] [address] [id number] [place] [address]- 8646 16 Feb, 2012 [facility] [place] [facility] [address] [id number] [place] [address]- 3459 Feb, [facility] [place] [facility] [address] [id number] [place] [address]- 9875 Feb, [facility] [place] [facility] [address] [id number] [place] [address]- 4721 05 Feb, 2012 [facility] [place] [facility] [address] [facility] [id number] [place] [address]- 3550 04 Feb, 2012 [facility] [place] [facility] [address] [id number] [place] [address]- 1696 02 Feb, 2012 [facility] [place] [facility] [address] [facility] [id number] [place] [address]- 6648 27 Jan, 2012 [facility] [place] [facility] [address] [facility] [id number] [place] [address]- 2671 25 Jan, 2012 [facility] [place] [facility] [address] [id number] [place] [address]- 7797 13 Jan, 2012 [facility] [place] [facility] [address] [id number] [place] [address]- 5147 12 Jan, 2012 [facility] [place] [facility] [address] [id number] [place] [address]- 3891 07 Jan, 2012 [facility] [place] [facility] [address] [facility] [id number] [place] [address]- 1871 31 Dec, 2011 [facility] [place] [facility] [address] [facility] [id number] [place] [address]- 2646 24 Dec, 2011 [facility] [place] [facility] [address] [id number] [place] [address]- 2975 Dec, [facility] [place] [facility] [address] [id number] [place] [address]- 8160 Dec, [facility] [place] [facility] [address] [id number] [place] [address] 2546 Dec, [facility] [place] [facility] [address] [id number] [place] [address]- 7408 Dec, [facility] [place] [facility] [address] [id number] [place] [address]- 1330 Dec, [facility] [place] [facility] [address] [id number] [place] [address]- 9435 Dec, [facility] [place] [facility] [address] [id number] [place] [address]- 7615 Nov, [facility] [place] [facility] [address] [id number] [place] [address]- 8321 Nov, [facility] [place] [facility] [address] [id number] [place] [address]- 6475 Nov, [facility] [place] [facility] [address] [id number] [place] [address]- 5605 Nov, [facility] [place] [facility] [address] [id number] [place] [address]- 7777 Nov, [facility] [place] [facility] [address] [id number] [place] [address]- 7432 Oct, [facility] [place] [facility] [address] [id number] [place] [address]- 4204 Oct, [facility] [place] [facility] [address] [id number] [place] [address]- 8500 September, [facility] [place] [facility] [address] [id number] [place] [address]- 9926 September, [facility] [place] [facility] [address] [id number] [place] [address]- 0699 September, [facility] [address] [id number] [place] [address]- 9411 September, [facility] [place] [facility] [address] [id number] [place] [address]- 8684 September, [facility] [place] [facility] [address] [id number] [place] [address]- 6593 September, [facility] [place] [facility] [address] [id number] [place] [address]- 5931 September, [facility] [place] [facility] [address] [id number] [place] [address]- 5171 September, [facility] [place] [facility] [address] [id number] [place] [address]- 1339 September, [facility] [place] [facility] [address] [id number] [place] [address]- 6207 September, [facility] [place] [facility] [address] [id number] [place] [address]- 7460 September, [facility] [place] [facility] [address] [id number] [place] [address]- 2764 September, [facility] [place] [facility] [address] [id number] [place] [address]- 7257 September, [facility] [place] [facility] [address] [id number] [place] [address]- 9398 September, [facility] [place] [facility] [address] [id number] [place] [address]- 6909 24 Aug, 2011 [facility] [place] [facility] [address] [id number] [place] [address]- 5752 Aug, [facility] [place] [facility] [address] [id number] [place] [address]- 6410 13 Aug, 2011 [facility] [place] [facility] [address] [id number] [place] [address]- 8286 Aug, [facility] [place] [facility] [address] [id number] [place] [address]- 3324 23 Jul, 2011 [facility] [address] [id number] [place] [address]- 2436 13 Jul, 2011 [facility] [address] [id number] [place] [address] 2546 13 Jul, 2011 [facility] [place] [address] [facility] [id number] [place] [address] 2546 28 Jun, [address] [facility] [address] [id number] [id number] 26 Jun, 2011 [facility] [address] [id number] [place] [address]- 9836 13 Jun, 2011 [facility] [address] [id number] [place] [address]- 2826 10 Jun, 2011 [facility] [address] [id number] [address] 2546 07 Jun, 2011 [facility] [address] [id number] [place] [address] 2544 07 Jun, 2011 [facility] [address] [id number] [place] [address]- 3855 03 Jun, 2011 [facility] [address] [id number] [place] [address]- 0630 02 Jun, 2011 [facility] [address] [id number] [place] [address] 2546 May, [facility] [address] [id number] [place] [address] 2547 May, [facility] [place] [facility] [address] [id number] [place] [address] 2543 May, [facility] [place] [facility] [address] [id number] [place] [address] 2546 May, [facility] [place] [facility] [address] [id number] [place] [address]- 0452 May, [facility] [place] [facility] [address] [id number] [place] [address]- 6236 May, [facility] [address] [id number] [place] [address]- 7246 May, [facility] [place] [facility] [address] [id number] [place] [address] 2546 May, [facility] [place] [facility] [address] [id number] [place] [address] 2543 May, [facility] [address] [id number] [place] [address]- 2990 May, [facility] [address] [id number] [place] [address]- 5416 May, [facility] [address] [id number] [place] [address]- 1458 May, [facility] [address] [id number] [place] [address]- 6742 May, [facility] [address] [id number] [place] [address]- 3108 May, [facility] [address] [id number] [place] [address]- 7321 Apr, [facility] [place] [facility] [address] [id number] [place] [address]- 2546 16 Apr, 2011 [facility] [place] [facility] [address] [id number], [place] [address]- 2546 05 Apr, 2011 [facility] [place] [facility] [address] [id number] [place] [address]- 4086 Mar, [facility] [place] [facility] [address] [id number] [place] [address]- 2546 Mar, [facility] [place] [facility] [address] [id number] [place] [address]- 2546 Feb, [facility] [place] [facility] [address] [id number], [place] [address]- 9119 26 Feb, 2011 [facility] [place] [facility] [address] [id number] [place] [address]- 96[address] 21 Feb, 2011 [facility] [place] [facility] [address] [id number] [place] [address]46 20 Feb, 2011 [facility] [place] [facility] [address] [id number] [place] [address] 13 Feb, 2011 [facility] [place] [facility] [address] [id number] [place] [address] 28 Apr, 2010 [facility] [place] [facility] [address] [id number] [place] [address] 22 Apr, 2010 [facility] [place] [facility] [address] [id number] [place] [address] 16 Apr, 2010 [facility] [place] [facility] [address] [id number] [place] [address] 15 Apr, 2010 [facility] [place] [facility] [address] [id number] [place] [address] 15 Apr, 2010 [facility] [place] [facility] [address] [id number] [place] [address] Apr, [facility] [place] [facility] [address] [id number] [place] [address] 24 Mar, 2010 [facility] [place] [facility] [address] [id number] [place] [address]46 17 Mar, 2010 [facility] [place] [facility] [address] [id number] [place] [address] 17 Mar, 2010 [facility] [place] [facility] [address] [id number] [place] [address] 28 Feb, 2010 [facility] [place] [facility] [address] [id number] [place] [address] 22 Feb, 2010 [facility] [place] [facility] [address] [id number] [place] [address] Feb, [facility] [place] [facility] [address] [id number] [place] [address] 15 Feb, 2010 [facility] [address] [id number] [address] Dec, [facility] [address] [id number] [address] Dec, [facility] [address] [id number] [address] Oct, [facility] [id number] [address] Mar, [facility] [id number], [place] [address] Mar, [facility] [address] [id number] [address] September, IMMUNIZATIONS No Known Immunizations SOCIAL HISTORY Never Assessed REASON FOR VISIT Controlled Med Refill/Librium PLAN OF CARE VITAL SIGNS MEDICATIONS Medication Instructions Dosage Frequency Start Date End Date Duration Status Chlordiazepoxide HCl 10 MG Orally Three times [...]
--- OUTSIDE RECORDS SUMMARY | 2017-12-20 13:00 | XMS REPORT ---
Author Author VALERIE ZAVALA [facility] Address [address] [place] [address] Care Team Providers Care Supervisor Cloth Winding Name Role Phone VALERIE ZAVALA Unavailable PROBLEMS Type Condition ICD9-CM Code SPI54-PH Code Onset Dates Condition Status SNOMED Code Problem Generalized anxiety disorder F41.1 Active 79511298 Problem Hypokalemia E87.6 Active 724181474 Problem Right low back pain, with sciatica presence unspecified M54.5 Active 689134581 Problem Post-traumatic stress disorder, chronic F43.12 Active 81335330 Problem Pain in right knee M25.561 Active 79982413 Problem Gastroesophageal reflux disease without esophagitis K21.9 Active 289906363 Problem UTI symptoms R39.9 Active 48941241 Problem Essential hypertension I10 Active 28856454 Problem Anxiety F41.9 Active 09300128 Problem Neuropathy G62.9 Active 868707140 Problem Other chronic pain G89.29 Active 58024764 Problem Generalized abdominal pain R10.84 Active 013736350 Problem Chronic pain G89.29 Active 89331730 Problem Back pain M54.9 Active 681840040 Problem Right foot pain M79.671 Active 97943022 Problem Panic attacks F41.0 Active 699781514 Problem Other emphysema J43.8 Active 65591391 Problem Kidney stones N20.0 Active 96876514 Problem Renal calculus, right N20.0 Active 16518593 Problem Weight decrease R63.4 Active 460973052 Problem Tobacco abuse Z72.0 Active 97099906 Problem Bone pain M89.8X9 Active 91791454 Problem Depression, unspecified depression type F32.9 Active 99085571 Problem Insomnia, unspecified type G47.00 Active 058249478 Problem Pulmonary emphysema, unspecified emphysema type J43.9 Active 53922003 Problem Right upper quadrant abdominal pain R10.11 Active 700861024 Problem Weight loss R63.4 Active 449911179 ALLERGIES No Information ENCOUNTERS Encounter Location Date Diagnosis [facility] [id number] [address] Nov, [facility] [id number] [place] [address] 08339- 0393 16 Nov, 2017 Pelvic pain R10.2 ; Acute pyelonephritis N10 and Essential hypertension I10 [facility] [id number] [place] [address] 27256- 6539 28 Oct, 2017 Medicare welcome exam Z00.00 [facility] [id number] [place] [address] 72076- 6384 18 Oct, 2017 Gross hematuria R31.0 ; Urinary tract infection without hematuria, site unspecified N39.0 and Weakness R53.1 [facility] [id number] [address] 1457 13 Oct, 2017 [facility] [id number] [place] [address] 08387- 0214 Oct, [facility] [id number] [place] [address] 16667- 0496 Oct, Medicare welcome exam Z00.00 [facility] [id number] [address] 8226 September, Back pain M54.9 and Right anterior knee pain M25.561 [facility] [id number] [address] 3653 September, [facility] [id number] [address] 6131 September, [facility] [id number] [address] 4822 September, Essential hypertension I10 [facility] [id number] [address] 5498 September, [facility] [id number] [place] [address] 63099- 5594 September, RLQ abdominal pain R10.31 ; Low back pain M54.5 and Other chronic pain G89.29 [facility] [id number] [place] [address] 68462- 3922 Aug, Medicare welcome exam Z00.00 [facility] [id number] [place] [address] 84570- 2111 Aug, [facility] [address] 7[address]30- 4782 Aug, Acute pyelonephritis N10 and Medicare welcome exam Z00.00 [facility] [id number] [place] [address] 86673 -4345 Aug, Dysuria R30.0 and Acute pyelonephritis N10 [facility] [id number] [place] [address] 51183- 3191 Aug, [facility] [address] 92538- 1117 Aug, [facility] [id number] [place] [address] 78059- 8634 Aug, [facility] [id number] [place] [address] 99877- 9504 Aug, [facility] [id number] [place] [address] 58775- 3449 Jul, [facility] [id number] [place] [address] 83178- 1175 Jul, Renal calculus, right N20.0 and Medicare welcome exam Z00.00 [facility] [id number] [place] [address] 04083 -3140 Jul, Dysuria R30.0 and Renal calculus, right N20.0 [facility] [id number] [place] [address] 79638- 5005 Jul, Medicare welcome exam Z00.00 [place] [id number] [address]- 1302 13 Jun, 2017 Gastroesophageal reflux disease without esophagitis K21.9 and Generalized abdominal pain R10.84 [place] [id number] [place] [address] 29830- 5713 09 Jun, 2017 Medicare welcome exam Z00.00 [place] [id number] [place] [address] 89672- 8709 05 Jun, 2017 [place] [id number] [place] [address] 57945- 8074 05 Jun, 2017 Medicare welcome exam Z00.00 and Encounter for screening mammogram for malignant neoplasm of breast Z12.31 [facility] [id number] [place] [address] 66383- 6727 02 Jun, 2017 Chronic pain G89.29 [facility] [id number] [place] [address] 86123- 3930 24 May, 2017 [facility] [id number] [place] [address] 60931- 8844 May, Pelvic pain R10.2 [place] [id number] [place] [address] 86844- 1082 May, Pelvic pain R10.2 [facility] [place] [id number] [place] [address] 61262 -8328 May, Renal calculus, right N20.0 [place] [id number] [place] [address] 19621- 8868 May, Hematuria, unspecified type R31.9 and Nephrolithiasis N20.0 [facility] [place] [id number] [place] [address] 32245 -1404 May, Dysuria R30.0 and Nephrolithiasis N20.0 [place] [id number] [place] [address] 20232- 8922 May, [facility] [address] [address] May, Abdominal pain R10.9 and Kidney stone N20.0 [facility] [id number] [place] [address] 63182- 1022 May, [facility] [id number] [place] [address] 04848- 3428 May, Chronic pain G89.29 and Panic attacks F41.0 [facility] [id number] [place] [address] 50626- 3092 May, Urinary tract infection without hematuria, site unspecified N39.0 [facility] [id number] [place] [address] 84280- 6602 Apr, Right lower quadrant abdominal pain R10.31 and Abnormal serum lipase level R74.8 [place] [id number] [place] [address] 71568- 7957 Apr, Recurrent urinary tract infection N39.0 [facility] [id number] [place] [address] 24384- 4747 Apr, UTI symptoms R39.9 ; Recurrent urinary tract infection N39.0 and Pelvic pain R10.2 [facility] [id number] [place] [address] 56019- 1267 Apr, Chronic pain G89.29 and Panic attacks F41.0 [facility] [id number] [place] [address] 03303- 7530 Apr, Dysuria R30.0 [facility] [id number] [place] [address] 22447- 2563 Apr, [place] [id number] [place] [address] 85141- 6640 Apr, Dysuria R30.0 and Urinary tract infection without hematuria , site unspecified N39.0 [facility] [id number] [place] [address] 63444- 8084 Mar, UTI symptoms R39.9 [facility] [id number] [place] [address] 24407- 1481 Mar, [place] [id number] [place] [address] 06982- 9182 Mar, Panic attacks F41.0 and Chronic pain G89.29 [place] [address] 79338- 1764 Mar, [place] [id number] [place] [address] 36322- 3565 Mar, Dysuria R30.0 [place] [address] 86219- 6619 Mar, Dysuria R30.0 [place] [address] 69802- 8016 Feb, Chronic pain G89.29 ; Shortness of breath R06.02 ; Weight loss R63.4 ; Encounter for immunization Z23 ; Bone pain M89.8X9 ; Right anterior knee pain M25.561 and Cough R05 [place] [address] 94033- 6506 Feb, Shortness of breath R06.02 [place] [id number] [place] [address] 75470- 0474 Feb, [place] [id number] [place] [address] 09724- 5385 Feb, Panic attacks F41.0 and Chronic pain G89.29 [place] [id number] [place] [address] 40946- 1732 Feb, [place] [address] 59411- 5763 Feb, Panic attacks F41.0 ; Shortness of breath R06.02 and Encounter for immunization Z23 [place] [address] 17254- 6187 Jan, [facility] [id number] [place] [address] 00734- 9318 Jan, Anxiety F41.9 and Chronic pain G89.29 [facility] [id number] [place] [address] 69933- 0495 Dec, Anxiety F41.9 and Chronic pain G89.29 [facility] [address] 12011- 4736 Nov, Chronic pain G89.29 [facility] [id number] [place] [address] 55379- 8686 Nov, Anxiety F41.9 [place] [id number] [place] [address] 33644- 4890 Nov, Chronic pain G89.29 ; Essential hypertension I10 and Other emphysema J43.8 [place] [id number] [place] [address] 53533- 4885 Oct, Anxiety F41.9 [facility] [id number] [place] [address] 97136- 1031 Oct, [place] [id number] [place] [address] 83356- 4748 Oct, Chronic pain G89.29 [facility] [id number] [place] [address] 69598- 6011 September, Recurrent UTI N39.0 ; Neuropathy G62.9 and Anxiety F41.9 [facility] [id number] [place] [address] 79506- 3015 September, [facility] [id number] [place] [address] 39409- 5856 September, Chronic pain G89.29 [facility] [id number] [place] [address] 57770- 9203 September, [facility] [id number] [address]- 5396 Aug, Post-traumatic stress disorder, chronic F43.12 ; Chronic urinary tract infection N39.0 ; Gastroesophageal reflux disease without esophagitis K21.9 ; Chronic pain G89.29 ; Essential hypertension I10 and Tobacco abuse Z72.0 [facility] [address] [address]36 Aug, [facility] [id number] [place] [address] 99967 2546 Aug, Chronic pain G89.29 [facility] [id number] [place] [address] 87928- 0046 Aug, Insomnia, unspecified type G47.00 [facility] [address] [address]- 5266 Aug, [facility] [id number] [place] [address] 97142- 0979 Jul, Chronic pain G89.29 [facility] [address] [address]- 3111 Jul, [facility] [id number] [address]- 9395 Jul, [facility] [address] [address]- 9717 Jul, [facility] [address] [address]- 2547 15 Jul, 2016 Recurrent UTI (urinary tract infection) N39.0 [facility] [address] [address]- 2546 14 Jul, 2016 [facility] [address] [address]- 2546 Jun, Chronic pain G89.29 [facility] [address] [address]- 2546 Jun, [facility] [id number] [place] [address] 63946- 9128 Jun, [facility] [address] 75082- 4114 May, Chronic pain G89.29 [place] [id number] [place] [address] 08426- 4537 May, Weight loss R63.4 and Shortness of breath R06.02 [facility] [address] 23985- 5638 May, Chronic pain G89.29 ; Weight loss R63.4 and Tobacco abuse Z72.0 [place] [address] 41930- 8898 May, [place] [id number] [place] [address] 62394- 2322 May, Hypoxia R09.02 [facility] [address] 21563- 5596 May, [facility] [id number] [place] [address] 36388- 5701 May, Pulmonary emphysema, unspecified emphysema type J43.9 [facility] [id number] [place] [address] 28251 -3977 May, [facility] [id number] [place] [address] 12899- 0116 May, [facility] [id number] [place] [address] 18921- 0498 May, [facility] [id number] [place] [address] 87371- 7939 May, Chronic pain G89.29 ; Encounter for immunization Z23 ; Right anterior knee pain M25.561 and Cough R05 [facility] [id number] [place] [address] 59433- 0906 Apr, Chronic pain G89.29 [place] [id number] [place] [address] 97587- 3090 Apr, [facility] [id number] [place] [address] 11563- 3413 Apr, Generalized anxiety disorder F41.1 and Depression, unspecified depression type F32.9 [facility] [id number] [place] [address] 44589- 5415 Apr, Chronic pain G89.29 ; Hypokalemia E87.6 and Insomnia, unspecified type G47.00 [facility] [id number] [place] [address] 82593- 1616 Apr, [facility] [id number] [place] [address] 88691- 3059 Apr, Chronic pain G89.29 [facility] [id number] [place] [address] 05244- 1261 Apr, [facility] [id number] [place] [address] 73292- 9277 Mar, [facility] [id number] [place] [address] 25243- 3554 Mar, Insomnia, unspecified type G47.00 [facility] [id number] [place] [address] 09988- 7412 Mar, Chronic pain G89.29 [facility] [id number] [place] [address] 16653- 0110 Mar, [facility] [id number] [place] [address] 83583- 2065 Feb, [facility] [id number] [place] [address] 77524- 5194 Feb, [facility] [id number] [place] [address] 96237- 6432 Feb, [facility] [id number] [place] [address] 97350- 9848 Feb, [facility] [address] [address]- 2208 Feb, [facility] [id number] [place] [address] 96088- 8975 Jan, [facility] [id number] [place] [address] 16955- 1176 Jan, [facility] [id number] [place] [address] 90750- 0678 Jan, [facility] [id number] [place] [address] 63005- 1901 13 Jan, 2016 [facility] [id number] [place] [address] 95900- 4377 Jan, [facility] [id number] [place] [address] 08477- 0461 Jan, Chronic pain G89.29 [facility] [id number] [place] [address] 27638- 6242 Jan, Chronic pain G89.29 and Fibromyalgia M79.7 [facility] [id number] [place] [address] 82311- 3002 Dec, Depression, unspecified depression type F32.9 and Generalized anxiety disorder 300.02 [facility] [id number] [place] [address] 28084- 3400 Dec, Dysthymia F34.1 ; Insomnia, unspecified type G47.00 and Chronic pain G89.29 [facility] [address] [address]- 7663 Dec, Chronic pain G89.29 [facility] [id number] [place] [address] 83032- 5918 Dec, Insomnia, unspecified type G47.00 [facility] [id number] [place] [address] 30103- 5775 Dec, Fibromyalgia M79.7 and Chronic pain G89.29 [facility] [address] [facility] [id number] [address]- 4594 Dec, [facility] [address] [facility] [id number] [place] [address] 99558- 3882 Dec, [facility] [address] [facility] [id number] [place] [address] 87006- 5075 Dec, [facility] [address] [facility] [id number] [place] [address] 57063- 6228 Dec, [facility] [address] [facility] [id number] [place] [address] 99850- 5591 Dec, Chronic pain G89.29 [facility] [address] [place] [id number] [place] [address] 92021- 6060 Dec, [facility] [address] [id number] [place] [address] 94196- 9885 Dec, [facility] [address] [facility] [id number] [place] [address] 57332- 7506 Dec, [facility] [id number] [place] [address] 52321- 4331 Dec, Chronic pain G89.29 and Dysthymia F34.1 [facility] [id number] [place] [address] 97038- 5183 Nov, [facility] [address] [id number] [place] [address] 80353- 3535 Nov, Hypokalemia E87.6 and Chronic pain G89.29 [facility] [address] [facility] [id number] [place] [address] 25078- 1909 Nov, Back pain M54.9 and Pain in right knee M25.561 [facility] [address] [facility] [id number] [address]- 6410 Nov, [facility] [id number] [place] [address] 31257- 5188 Nov, Chronic pain G89.29 [facility] [address] [place] [address] 00366 2546 Nov, Chronic pain G89.29 ; Weight loss R63.4 ; Bone pain M89.8X9 and Insomnia, unspecified type G47.00 [facility] [id number] [place] [address] 39514- 5686 Nov, Chronic pain G89.29 [facility] [id number] [place] [address] 52951 2546 Nov, Chronic pain G89.29 [facility] [id number] [place] [address] 07353 2546 Oct, Chronic pain G89.29 [facility] [id number] [place] [address] [phone]- [phone] Oct, UTI symptoms R39.9 [facility] [id number] [place] [address] [id number] 2549 Oct, Chronic pain G89.29 [facility] [id number] [place] [address] [phone]- [phone] Oct, Chronic pain G89.29 [facility] [id number] [place] [address] [id number] 2546 Oct, Chronic pain G89.29 [facility] [id number] [place] [address] [id number] 2546 Oct, Right upper quadrant abdominal pain R10.11 [facility] [id number] [place] [address] [id number] 2546 Oct, Chronic pain G89.29 [facility] [id number] [place] [address] [id number] 2546 Oct, [facility] [id number] [place] [address] 25244- 7554 September, Chronic pain G89.29 [facility] [id number] [address] September, Dysuria R30.0 and Urinary tract infection without hematuria , site unspecified N39.0 [facility] [id number] [address] September, [facility] [id number] [address] September, Dysuria R30.0 [facility] [id number] [place] [address] [phone]- 6070 September, Chronic pain G89.29 [facility] [id number] [place] [address] [phone]- [phone] September, Chronic pain G89.29 and Essential hypertension I10 [facility] [id number] [place] [address] [phone]- [phone] September, [facility] [id number] [place] [address] [phone] September, [facility] [id number] [place] [address] [phone]- [phone] September, [facility] [id number] [place] [address] [phone]- [phone] Aug, UTI symptoms R39.9 [facility] [id number] [address] Aug, Dysuria R30.0 [facility] [id number] [address] 6088 Aug, [facility] [id number] [address] 9281 Aug, [facility] [id number] [address] 7753 Aug, [facility] [id number] [address] 8379 Aug, Chronic pain G89.29 [facility] [address] [id number] [address] Aug, Dysthymia F34.1 [facility] [id number] [place] [address] 83453- 1906 Aug, Conjunctivitis, unspecified conjunctivitis type, unspecified laterality H10.9 [facility] [id number] [place] [address] 74392- 1389 31 Jul, 2015 Chronic pain G89.29 ; Back pain M54.9 ; Tobacco abuse Z72.0 and Weight decrease R63.4 [facility] [id number] [place] [address] 63847- 4176 30 Jul, 2015 [facility] [id number] [place] [address] 50371- 5416 30 Jul, 2015 [facility] [id number] [place] [address] 12328- 4883 24 Jul, 2015 Chronic pain G89.29 [facility] [id number] [place] [address] 07419- 0119 22 Jul, 2015 [facility] [id number] [place] [address] 83789 2544 21 Jul, 2015 [facility] [id number] [place] [address] 31084- 1073 18 Jul, 2015 [facility] [id number] [place] [address] 08181 2544 17 Jul, 2015 [facility] [id number] [place] [address] 87693 2547 17 Jul, 2015 Chronic pain G89.29 [facility] [id number] [place] [address] 92183 2546 16 Jul, 2015 Chronic pain G89.29 [facility] [id number] [place] [address] 62809- 2056 15 Jul, 2015 [facility] [id number] [place] [address] 50478- 8721 Jul, [facility] [id number] [place] [address] 22211- 8724 Jul, [facility] [id number] [place] [address] 28308- 5660 Jul, [facility] [address] 02165- 5998 Jun, [facility] [address] 61289- 3484 Jun, Depression, unspecified depression type F32.9 [place] [address] 80018- 1866 Jun, Pain in right knee M25.561 [place] [address] 11595- 0043 Jun, Chronic pain G89.29 ; Back pain M54.9 ; Bone pain M89.8X9 and Weight loss R63.4 [facility] [id number] [place] [address] 72683- 3074 Jun, [facility] [id number] [place] [address] 24629- 9881 May, [facility] [id number] [place] [address] 09639- 5404 May, UTI symptoms R39.9 ; Pain in right knee M25.561 ; Right low back pain, with sciatica presence unspecified M54.5 ; Right foot pain M79.671 ; Hypokalemia E87.6 and Screening, lipid Z13.220 [facility] [id number] [place] [address] 84013- 3704 May, [facility] [id number] [place] [address] 06023- 8782 May, [facility] [address] 22514- 2909 Mar, [facility] [id number] [place] [address] 46200- 9866 Mar, [facility] [id number] [place] [address] 68231- 0526 Mar, Hypokalemia E87.6 [facility] [id number] [place] [address] 20735- 0916 Mar, Pain in right leg M79.604 ; Encounter for immunization Z23 ; Pain in right knee M25.561 and Hypokalemia E87.6 [facility] [id number] [place] [address] 16073- 0596 Jan, [facility] [id number] [place] [address] 97737- 0576 Jan, [facility] [id number] [place] [address] 93486- 5367 Jan, Abdominal pain, generalized 789.07 [facility] [id number] [place] [address] 61246- 9705 Jan, Abdominal pain, generalized 789.07 [facility] [id number] [place] [address] 24113- 7484 Dec, [facility] [id number] [place] [address] 58575- 4816 Dec, [facility] [id number] [place] [address] 33733- 7799 Dec, [facility] [id number] [place] [address] 71654- 9528 Nov, Hallux valgus 735.0 and Hammertoe 735.4 [facility] [id number] [place] [address] 57052- 0996 Nov, [facility] [id number] [place] [address] 34126- 6244 Nov, Hallux valgus 735.0 and Hammer toe 735.4 [facility] [id number] [address]- 7851 Oct, [facility] [id number] 3471 Oct, [facility] [id number] [address]- 2229 Oct, Pre-op evaluation V72.84 [facility] [id number] [address]- 3647 Oct, [facility] [id number] [place] [address] [id number]- 6249 Oct, [facility] [id number] [address]- 8999 September, [facility] [id number] [place] [address] 37748- 3045 September, [facility] [id number] [address]- 0572 September, Hallux valgus (acquired) 735.0 and Other hammer toe ( acquired) 735.4 [facility] [id number] [address]- 6213 Aug, [facility] [id number] [address]- 8994 Aug, [facility] [id number] [address]- 9437 Jul, [facility] [id number] [address]- 4760 Jul, [facility] [id number] 0358 Jul, [facility] [id number] 1753 Jul, [facility] [place] [facility] [address] [id number] [place] [address]- 9092 Jul, [facility] [place] [facility] [address] [id number] [place] [address]- 1885 Jul, [facility] [place] [facility] [address] [id number] [place] [address]- 8014 Jul, [facility] [place] [facility] [address] [id number] [place] [address]- 3632 Jul, [facility] [place] [facility] [address] [id number] [place] [address]- 2127 Jun, 2014 [facility] [place] [facility] [address] [id number] [place] [address]- 1870 Jun, 2014 [facility] [place] [facility] [address] [id number] [place] [address]- 0514 Jun, 2014 [facility] [place] [facility] [address] [id number] [place] [address]- 1337 Jun, 2014 [facility] [place] [facility] [address] [id number] [place] [address]- 6866 Jun, [facility] [place] [facility] [address] [id number] [place] [address]- 4063 Jun, [facility] [place] [facility] [address] [id number] [place] [address]- 5198 Jun, 2014 [facility] [place] [facility] [address] [id number] [place] [address]- 1405 Jun, 2014 [facility] [place] [facility] [address] [id number] [place] [address]- 1840 Jun, [facility] [place] [facility] [address] [id number] [place] [address]- 9123 Jun, [facility] [place] [facility] [address] [id number] [place] [address]- 3464 May, [facility] [place] [facility] [address] [id number] [place] [address]- 5822 May, [facility] [address] [id number] [place] [address]- 6694 May, [facility] [place] [facility] [address] [id number] [place] [address]- 0286 May, [facility] [place] [facility] [address] [id number] [place] [address]- 4124 May, [facility] [place] [facility] [address] [id number] [place] [address]- 8004 May, [facility] [place] [facility] [address] [id number] [place] [address]- 4080 May, [facility] [place] [facility] [address] [id number] [place] [address]- 0862 May, [facility] [place] [facility] [address] [id number] [place] [address]- 3210 May, [facility] [place] [facility] [address] [id number] [place] [address]- 9502 May, [facility] [place] [facility] [address] [id number] [place] [address]- 4808 May, [facility] [place] [facility] [address] [id number] [place] [address]- 6946 May, [facility] [place] [facility] [address] [id number] [place] [address]- 0109 May, [facility] [place] [facility] [address] [id number] [place] [address]- 8338 May, [facility] [place] [facility] [address] [id number] [place] [address]- 2443 May, [facility] [place] [facility] [address] [id number] [place] [address]- 5661 May, [facility] [place] [facility] [address] [id number] [place] [address]- 0976 May, [facility] [place] [facility] [address] [id number] [place] [address]- 3256 May, [facility] [place] [facility] [address] [id number] [place] [address]- 6776 Apr, [facility] [place] [facility] [address] [id number] [place] 0063 Apr, [facility] [place] [facility] [address] [id number] [place] [address]- 8669 Apr, [facility] [place] [facility] [address] [id number] [place] [address]- 6028 Apr, [facility] [place] [facility] [address] [id number] [place] [address]- 6272 Apr, [facility] [place] [facility] [address] [id number] [place] [address]- 2138 Apr, [facility] [place] [facility] [address] [id number] [place] [address]- 6425 Apr, [facility] [place] [facility] [address] [id number] [place] [address]- 1075 Apr, [facility] [place] [facility] [address] [id number] [place] [address]- 7870 Apr, [facility] [place] [facility] [address] [id number] [place] [address]- 5359 Mar, [facility] [place] [facility] [address] [id number] [place] [address]- 5930 Mar, [facility] [place] [facility] [address] [id number] [place] [address]- 7024 Mar, [facility] [place] [facility] [address] [id number] [place] [address]- 8380 Mar, [facility] [place] [facility] [address] [id number] [place] [address]- 1269 Mar, [facility] [place] [facility] [address] [id number] [address]- 9957 Feb, 2013 [facility] [place] [facility] [address] [id number] [place] [address]- 4325 Feb, 2013 [facility] [place] [facility] [address] [id number] [place] 5055 Feb, 2013 [facility] [place] [facility] [address] [id number] [place] [address]- 8011 Feb, 2013 [facility] [place] [facility] [address] [id number] [place] [address]- 9836 Feb, 2013 [facility] [place] [facility] [address] [id number] [place] [address]- 6181 Feb, 2013 [facility] [place] [facility] [address] [id number] [place] [address]- 5713 Feb, 2013 [facility] [place] [facility] [address] [id number] [address]- 5865 Feb, 2013 [facility] [place] [facility] [address] [id number] [address]- 9908 Feb, 2013 [facility] [place] [facility] [address] [id number] [address]- 3795 Feb, 2013 [facility] [place] [facility] [address] [id number] [address]- 2288 Feb, 2013 [facility] [place] [facility] [address] [id number] [address]- 1184 Feb, 2013 [facility] [place] [facility] [address] [id number] [address]- 3091 Feb, 2013 [facility] [place] [facility] [address] [id number] [address]- 2261 Feb, 2013 [facility] [place] [facility] [address] [id number] [address]- 0053 Feb, 2013 [facility] [place] [facility] [address] [id number] [address]- 9295 Feb, 2013 [facility] [place] [facility] [address] [id number] [place] [address]- 8146 23 Jan, 2013 [facility] [place] [facility] [address] [id number] [place] [address]- 9346 23 Jan, 2013 [facility] [place] [facility] [address] [id number] [place] [address]- 5796 20 Jan, 2013 [facility] [place] [facility] [address] [id number] [place] [address]- 7906 19 Jan, 2013 [facility] [place] [facility] [address] [id number] [place] [address]- 2542 11 Jan, 2013 [facility] [place] [facility] [address] [id number] [place] [address]- 8021 11 Jan, 2013 [facility] [place] [facility] [address] [id number] [place] [address]- 4420 Jan, [facility] [place] [facility] [address] [id number] [place] [address]- 4762 Jan, 2013 [facility] [place] [facility] [address] [id number] [place] [address]- 3959 Dec, [facility] [place] [facility] [address] [id number] [place] [address]- 8639 Dec, [facility] [place] [facility] [address] [id number] [place] [address]- 0773 Nov, [facility] [place] [facility] [address] [id number] [place] [address]- 8861 Nov, [facility] [place] [facility] [address] [id number] [place] [address]- 5856 Nov, [facility] [place] [facility] [address] [id number] [place] [address]- 9554 Nov, [facility] [place] [facility] [address] [id number] [place] [address]- 1662 Nov, [facility] [place] [facility] [address] [id number] [place] [address]- 6270 Nov, [facility] [place] [facility] [address] [id number] [place] [address]- 5178 Nov, [facility] [place] [facility] [address] [id number] [place] [address]- 6072 Nov, [facility] [place] [facility] [address] [id number] [place] [address]- 4353 Nov, [facility] [place] [facility] [address] [id number] [place] [address]- 6523 Oct, [facility] [place] [facility] [address] [id number] [place] [address]- 5569 Oct, [facility] [place] [facility] [address] [id number] [place] [address]- 1267 Oct, [facility] [place] [facility] [address] [id number] [place] [address]- 8100 Oct, [facility] [place] [facility] [address] [id number] [place] [address]- 7147 Oct, [facility] [place] [facility] [address] [id number] [place] [address]- 5842 Oct, [facility] [place] [facility] [address] [id number] [place] [address]- 5729 September, [facility] [place] [facility] [address] [id number] [place] [address]- 9577 September, [facility] [place] [facility] [address] [id number] [place] [address]- 1997 September, [facility] [place] [facility] [address] [id number] [place] [address]- 3539 September, [facility] [place] [facility] [address] [id number] [place] [address]- 6246 September, [facility] [place] [facility] [address] [id number] [place] [address]- 5258 September, [facility] [place] [facility] [address] [id number] [place] [address]- 8631 September, [facility] [address] [id number] [place] [address]- 8011 September, [facility] [place] [facility] [address] [id number] [place] [address]- 2519 September, [facility] [place] [facility] [address] [id number] [place] [address]- 3637 September, [facility] [place] [facility] [address] [id number] [place] [address]- 0726 September, [facility] [place] [facility] [address] [id number] [place] [address]- 7456 September, [facility] [place] [facility] [address] [id number] [place] [address]- 9570 September, [facility] [place] [facility] [address] [id number] [place] [address]- 3986 September, [facility] [place] [facility] [address] [id number] [place] [address]- 3136 September, [facility] [place] [facility] [address] [id number] [place] [address]- 7023 September, [facility] [place] [facility] [address] [id number] [place] [address]- 1557 September, [facility] [place] [facility] [address] [id number] [place] [address]- 0803 September, [facility] [place] [facility] [address] [id number] [place] [address]- 0616 September, [facility] [place] [facility] [address] [id number] [place] 4927 September, [facility] [place] [facility] [address] [id number] [place] [address]- 5220 Aug, [facility] [place] [facility] [address] [id number] [place] [address]- 0286 Aug, [facility] [place] [facility] [address] [id number] [place] [address]- 0551 28 Aug, 2013 [facility] [place] [facility] [address] [id number] [place] [address]- 2667 28 Aug, 2013 [facility] [place] [facility] [address] [id number] [place] [address]- 7547 18 Aug, 2013 [facility] [place] [facility] [address] [id number] [place] [address]- 0409 18 Aug, 2013 [facility] [place] [facility] [address] [id number] [place] [address]- 8465 16 Aug, 2013 [facility] [place] [facility] [address] [id number] [place] [address]- 3412 16 Aug, 2013 [facility] [place] [facility] [address] [id number] [place] [address]- 3777 15 Aug, 2013 [facility] [place] [facility] [address] [id number] [place] [address]- 8115 15 Aug, 2013 [facility] [place] [facility] [address] [id number] [place] [address]- 8467 14 Aug, 2013 [facility] [place] [facility] [address] [id number] [place] [address]- 6378 05 Aug, 2013 [facility] [place] [facility] [address] [id number] [place] [address]- 1635 Aug, [facility] [place] [facility] [address] [id number] [place] [address]- 7220 Aug, [facility] [place] [facility] [address] [id number] [place] [address]- 8786 Aug, [facility] [place] [facility] [address] [id number] [place] 6671 Jul, [facility] [place] [facility] [address] [id number] [place] 5236 Jul, [facility] [place] [facility] [address] [id number] [place] [address]- 1925 Jul, [facility] [place] [facility] [address] [id number] [place] [address]- 7525 Jul, [facility] [place] [facility] [address] [id number] [place] [address]- 9473 Jul, [facility] [place] [facility] [address] [id number] [place] [address]- 8978 Jul, [facility] [place] [facility] [address] [id number] [place] [address]- 3463 Jul, [facility] [place] [facility] [address] [id number] [place] [address]- 0729 Jul, [facility] [place] [facility] [address] [id number] [place] [address]- 8910 Jul, [facility] [place] [facility] [address] [id number] [place] [address]- 3297 Jul, [facility] [place] [facility] [address] [id number] [place] [address]- 3930 Jul, [facility] [place] [facility] [address] [id number] [place] [address]- 8468 Jul, [facility] [place] [facility] [address] [id number] [place] [address]- 6955 Jul, [facility] [place] [facility] [address] [id number] [place] [address] Jul, [facility] [place] [facility] [address] [id number] [place] [address] Jul, [facility] [place] [facility] [address] [id number] [place] [address] Jun, [facility] [place] [facility] [address] [id number] [place] [address] Jun, [facility] [place] [facility] [address] [id number] [place] [address] Jun, [facility] [place] [facility] [address] [id number] [place] [address] Jun, [facility] [address] [id number] [place] [address] Jun, [facility] [place] [facility] [address] [id number] [place] [address] Jun, [facility] [address] [id number] [place] [address] May, [facility] [place] [facility] [address] [id number] [place] [address] May, [facility] [address] [id number] [place] [address] May, [facility] [place] [facility] [address] [id number] [place] [address] May, [facility] [address] [id number] [place] [address]- [address] May, [facility] [address] [id number] [place] [address] May, [facility] [place] [facility] [address] [id number] [place] [address]- [address] May, [facility] [address] [id number] [place] [address] May, [facility] [place] [facility] [address] [id number] [place] [address]- [address] May, [facility] [place] [facility] [address] [id number] [place] [address]- [address] May, [facility] [place] [facility] [address] [id number] [place] [address]- [address]648 May, [facility] [place] [facility] [address] [id number] [place] [address]- [address] May, [facility] [place] [facility] [address] [id number] [place] [address] May, [facility] [address] [id number] [place] [address]- 58[address] May, [facility] [place] [facility] [address] [id number] [place] [address] May, [facility] [place] [facility] [address] [id number] [place] [address]- [address] Apr, [facility] [place] [facility] [address] [id number] [place] [address]- 9629 Apr, [facility] [place] [facility] [address] [id number] [place] [address]- [address] Apr, [facility] [place] [facility] [address] [id number] [place] [address]- [address] Apr, [facility] [place] [facility] [address] [id number] [place] [address] Apr, [facility] [place] [facility] [address] [id number] [place] [address]- 1700 Apr, [facility] [place] [facility] [address] [id number] [place] [address] 1455 Apr, [facility] [place] [facility] [address] [id number] [place] [address]- [address] Apr, [facility] [place] [facility] [address] [id number] [place] [address]- [address] Apr, [facility] [place] [facility] [address] [id number] [place] [address]- 39[address] Apr, [facility] [place] [facility] [address] [id number] [place] [address] 1296 Mar, [facility] [place] [facility] [address] [id number] [place] [address]- [address]51 Mar, [facility] [place] [facility] [address] [id number] [place] [address]68 Mar, [facility] [place] [facility] [address] [id number] [address] Mar, [facility] [address] [id number] [place] [address]- [address]80 Mar, [facility] [place] [facility] [address] [id number] [address]- [address] Mar, [facility] [address] [id number] [place] [address]- 1445 Mar, [facility] [place] [facility] [address] [id number] [place] [address]- 9039 Mar, [facility] [address] [id number] [place] [address]- 4079 Mar, [facility] [place] [facility] [address] [id number] [place] [address]- 279[address] Mar, [facility] [address] [id number] [place] [address] Mar, [facility] [place] [facility] [address] [id number] [place] [address] Mar, [facility] [address] [id number] [place] [address]- 6[address] Mar, [facility] [address] [id number] [address] Mar, [facility] [address] [id number] [address] 18 Mar, 2013 [facility] [place] [facility] [address] [id number] [place] [address] 18 Mar, 2013 [facility] [place] [facility] [address] [id number] [place] [address] 14 Mar, 2013 [facility] [place] [facility] [address] [id number] [place] [address] 14 Mar, 2013 [facility] [place] [facility] [address] [id number] [address] 12 Mar, 2013 [facility] [place] [facility] [address] [id number] [place] [address]- [address] Mar, [facility] [place] [facility] [address] [id number] [place] [address]- [address]879 Mar, [facility] [place] [facility] [address] [id number] [place] [address]- 4989 Mar, [facility] [place] [facility] [address] [id number] [place] [address]- 1144 Mar, [facility] [place] [facility] [address] [id number] [place] [address] Feb, [facility] [place] [facility] [address] [address] [id number] [place] [address] Feb, [facility] [place] [facility] [address] [id number] [place] [address] Feb, [facility] [place] [facility] [address] [id number] [place] [address] 9810 Feb, [facility] [place] [facility] [address] [id number] [place] [address] 1666 Feb, [facility] [place] [facility] [address] [id number] [place] [address]77 Feb, [facility] [place] [facility] [address] [id number] [place] [address] 5557 Feb, [facility] [place] [facility] [address] [id number] [place] [address] 5957 Feb, [facility] [place] [facility] [address] [id number] [place] [address]- 9977 Feb, [facility] [place] [facility] [address] [id number] [place] [address] 7026 Feb, [facility] [place] [facility] [address] [id number] [place] [address]- 2677 30 Jan, 2013 [facility] [place] [facility] [address] [id number] [place] [address]- 6220 26 Jan, 2013 [facility] [place] [facility] [address] [id number] [place] [address]- 1282 24 Jan, 2013 [facility] [place] [facility] [address] [id number] [place] [address]- 9826 23 Jan, 2013 [facility] [place] [facility] [address] [id number] [place] [address] Jan, [facility] [place] [facility] [address] [id number] [place] [address]- 2996 Dec, [facility] [place] [facility] [address] [id number] [place] [address]- [address]249 Dec, [facility] [place] [facility] [address] [id number] [place] [address]- 9473 Dec, [facility] [place] [facility] [address] [id number] [place] [address]- 6086 Dec, [facility] [place] [facility] [address] [id number] [place] [address]- 5148 Dec, [facility] [place] [facility] [address] [id number] [place] [address]- 2676 Dec, [facility] [place] [facility] [address] [id number] [place] [address]- 0023 Dec, [facility] [place] [facility] [address] [id number] [place] [address]- 3698 Nov, [facility] [place] [facility] [address] [id number] [address]- [address]70 Nov, [facility] [place] [facility] [address] [id number] [place] [address]- 7338 Nov, [facility] [place] [facility] [address] [id number] [place] [address]- 7261 Nov, [facility] [place] [facility] [address] [id number] [place] [address]- 1317 Nov, [facility] [place] [facility] [address] [id number] [place] [address]- 6925 18 Oct, 2012 [facility] [address] [id number] [place] [address]- 9988 14 Oct, 2012 [facility] [address] [id number] [place] [address]- 6183 06 Oct, 2012 [facility] [address] [id number] [place] [address]- 5674 September, [facility] [address] [id number] [place] [address]- 7577 September, [facility] [address] [id number] [place] [address]- 2298 September, [facility] [address] [id number] [place] [address] 5[address] September, [facility] [address] [id number] [place] [address] 8018 September, [facility] [address] [id number] [place] [address]- 3596 September, [facility] [address] [id number] [place] [address]- 4966 September, [facility] [address] [id number] [place] [address] 7465 Aug, [facility] [address] [id number] [place] [address]- 3580 Aug, [facility] [address] [id number] [place] [address]- 4699 Aug, [facility] [place] [facility] [address] [id number] [place] [address]- 7471 29 Jul, 2012 [facility] [place] [facility] [address] [id number] [place] [address]- 0412 Jul, [facility] [address] [id number] [place] [address]- 0631 Jul, [facility] [place] [facility] [address] [id number] [place] [address]- 7004 20 Jul, 2012 [facility] [place] [facility] [address] [id number] [place] [address]- 8892 18 Jul, 2012 [facility] [place] [facility] [address] [id number] [place] [address]- 7309 18 Jul, 2012 [facility] [place] [facility] [address] [id number] [place] [address]- 9669 Jul, [facility] [address] [id number] [place] [address]- 2288 28 Jun, 2012 [facility] [place] [facility] [address] [id number] [place] [address]- 7942 Jun, [facility] [address] [id number] [place] [address]- 8117 Jun, [facility] [place] [facility] [address] [id number] [place] [address]- 3410 Jun, [facility] [place] [facility] [address] [id number] [place] [address]- 4087 15 Jun, 2012 [facility] [place] [facility] [address] [id number] [place] [address]- 3686 Jun, [facility] [place] [facility] [address] [id number] [place] [address]- 8392 Jun, [facility] [place] [facility] [address] [id number] [place] [address]- 254 Jun, [facility] [place] [facility] [address] [id number] [place] [address]- 0327 Jun, [facility] [place] [facility] [address] [id number] [place] [address]- 3737 Jun, [facility] [place] [facility] [address] [id number] [place] [address]- 6976 May, [facility] [place] [facility] [address] [id number] [place] [address]- 4331 22 May, 2012 [facility] [address] [id number] [place] [address]- 2356 17 May, 2012 [facility] [address] [id number] [place] [address]- 9476 17 May, 2012 [facility] [address] [id number] [place] [address]- 8900 15 May, 2012 [facility] [address] [id number] [place] [address]- 7466 07 May, 2012 [facility] [address] [id number] [place] [address] 31 Apr, 2012 [facility] [address] [id number] [place] [address]- 2368 31 Apr, 2012 [facility] [address] [id number] [place] [address]- 6561 Apr, [facility] [address] [id number] [place] [address]- 0197 28 Apr, 2012 [facility] [address] [id number] [place] [address]- 3181 26 Apr, 2012 [facility] [address] [id number] [place] [address]- 1820 20 Apr, 2012 [facility] [address] [id number] [place] [address] 2546 Apr, [facility] [address] [id number] [place] [address]- 2542 29 Mar, 2012 [facility] [address] [id number] [place] [address]- 7358 29 Mar, 2012 [facility] [address] [id number] [place] [address]- 8291 27 Mar, 2012 [facility] [address] [id number] [place] [address]- 9704 Mar, [facility] [place] [facility] [address] [id number] [place] [address]- 2898 Mar, [facility] [place] [facility] [address] [id number] [place] [address]- 6290 Mar, [facility] [place] [facility] [address] [id number] [place] [address]- 3479 Mar, [facility] [place] [facility] [address] [id number] [place] [address]- 2196 Mar, [facility] [place] [facility] [address] [id number] [place] [address]- 3569 Mar, [facility] [place] [facility] [address] [id number] [place] [address]- 3597 Mar, [facility] [place] [facility] [address] [facility] [id number] [place] [address]- 7316 Mar, [facility] [place] [facility] [address] [id number] [address]- 7590 Mar, [facility] [place] [facility] [address] [facility] [id number] [address]- 9328 Mar, [facility] [place] [facility] [address] [facility] [id number] [address]- 3657 Mar, [facility] [place] [facility] [address] [facility] [id number] [address]- 9594 Mar, [facility] [place] [facility] [address] [id number] [place] [address]- 3787 Mar, [facility] [place] [facility] [address] [id number] [place] [address]- 7684 Mar, [facility] [place] [facility] [address] [id number] [place] [address]- 8028 Feb, [facility] [place] [facility] [address] [facility] [id number] [place] [address]- 0186 Feb, [facility] [place] [facility] [address] [id number] [place] [address]- 6552 17 Feb, 2012 [facility] [place] [facility] [address] [id number] [place] [address]- 3227 17 Feb, 2012 [facility] [place] [facility] [address] [id number] [place] [address]- 6966 16 Feb, 2012 [facility] [place] [facility] [address] [id number] [place] [address]- 9206 16 Feb, 2012 [facility] [place] [facility] [address] [id number] [place] [address]- 9000 Feb, [facility] [place] [facility] [address] [id number] [place] [address]- 3011 Feb, [facility] [place] [facility] [address] [id number] [place] [address]- 9751 05 Feb, 2012 [facility] [place] [facility] [address] [facility] [id number] [place] [address]- 5011 04 Feb, 2012 [facility] [place] [facility] [address] [id number] [place] [address]- 3664 02 Feb, 2012 [facility] [place] [facility] [address] [facility] [id number] [place] [address]- 8787 27 Jan, 2012 [facility] [place] [facility] [address] [facility] [id number] [place] [address]- 0638 25 Jan, 2012 [facility] [place] [facility] [address] [id number] [place] [address]- 5657 13 Jan, 2012 [facility] [place] [facility] [address] [id number] [place] [address]- 8764 12 Jan, 2012 [facility] [place] [facility] [address] [id number] [place] [address]- 1341 07 Jan, 2012 [facility] [place] [facility] [address] [facility] [id number] [place] [address]- 1705 31 Dec, 2011 [facility] [place] [facility] [address] [facility] [id number] [place] [address]- 8166 24 Dec, 2011 [facility] [place] [facility] [address] [id number] [place] [address]- 0328 Dec, [facility] [place] [facility] [address] [id number] [place] [address]- 0810 Dec, [facility] [place] [facility] [address] [id number] [place] [address] 2546 Dec, [facility] [place] [facility] [address] [id number] [place] [address]- 9154 Dec, [facility] [place] [facility] [address] [id number] [place] [address]- 6537 Dec, [facility] [place] [facility] [address] [id number] [place] [address]- 6016 Dec, [facility] [place] [facility] [address] [id number] [place] [address]- 7805 Nov, [facility] [place] [facility] [address] [id number] [place] [address]- 1667 Nov, [facility] [place] [facility] [address] [id number] [place] [address]- 6970 Nov, [facility] [place] [facility] [address] [id number] [place] [address]- 4296 Nov, [facility] [place] [facility] [address] [id number] [place] [address]- 1568 Nov, [facility] [place] [facility] [address] [id number] [place] [address]- 7914 Oct, [facility] [place] [facility] [address] [id number] [place] [address]- 4781 Oct, [facility] [place] [facility] [address] [id number] [place] [address]- 5469 September, [facility] [place] [facility] [address] [id number] [place] [address]- 9886 September, [facility] [place] [facility] [address] [id number] [place] [address]- 9091 September, [facility] [address] [id number] [place] [address]- 7437 September, [facility] [place] [facility] [address] [id number] [place] [address]- 2647 September, [facility] [place] [facility] [address] [id number] [place] [address]- 8000 September, [facility] [place] [facility] [address] [id number] [place] [address]- 1888 September, [facility] [place] [facility] [address] [id number] [place] [address]- 4751 September, [facility] [place] [facility] [address] [id number] [place] [address]- 9715 September, [facility] [place] [facility] [address] [id number] [place] [address]- 4964 September, [facility] [place] [facility] [address] [id number] [place] [address]- 9444 September, [facility] [place] [facility] [address] [id number] [place] [address]- 9385 September, [facility] [place] [facility] [address] [id number] [place] [address]- 5708 September, [facility] [place] [facility] [address] [id number] [place] [address]- 9794 September, [facility] [place] [facility] [address] [id number] [place] [address]- 8838 24 Aug, 2011 [facility] [place] [facility] [address] [id number] [place] [address]- 5879 Aug, [facility] [place] [facility] [address] [id number] [place] [address]- 9893 13 Aug, 2011 [facility] [place] [facility] [address] [id number] [place] [address]- 1609 Aug, [facility] [place] [facility] [address] [id number] [place] [address]- 9079 23 Jul, 2011 [facility] [address] [id number] [place] [address]- 8466 13 Jul, 2011 [facility] [address] [id number] [place] [address] 2546 13 Jul, 2011 [facility] [place] [facility] [address] [facility] [id number] [place] [address] 2546 28 Jun, [address] [facility] [address] [id number] 26 Jun, 2011 [facility] [address] [id number] [place] [address]- 3566 13 Jun, 2011 [facility] [address] [id number] [place] [address]- 8526 10 Jun, 2011 [facility] [address] [id number] [place] [address] 2546 07 Jun, 2011 [facility] [address] [id number] [place] [address] 2548 07 Jun, 2011 [facility] [address] [id number] [place] [address]- 9109 03 Jun, 2011 [facility] [address] [id number] [place] [address]- 8282 02 Jun, 2011 [facility] [address] [id number] [place] [address] 2546 May, [facility] [address] [id number] [place] [address] 2540 May, [facility] [place] [facility] [address] [id number] [place] [address] 2549 May, [facility] [place] [facility] [address] [id number] [place] [address] 2546 May, [facility] [place] [facility] [address] [id number] [place] [address]- 4214 May, [facility] [place] [facility] [address] [id number] [place] [address]- 5278 May, [facility] [address] [id number] [place] [address]- 7876 May, [facility] [place] [facility] [address] [id number] [place] [address] 2546 May, [facility] [place] [facility] [address] [id number] [place] [address] 2548 May, [facility] [address] [id number] [place] [address]- 0619 May, [facility] [address] [id number] [place] [address]- 1156 May, [facility] [address] [id number] [place] [address]- 4747 May, [facility] [address] [id number] [place] [address]- 2710 May, [facility] [address] [id number] [place] [address]- 9137 May, [facility] [address] [id number] [place] [address]- 6319 Apr, [facility] [place] [facility] [address] [id number] [place] [address]- 2546 16 Apr, 2011 [facility] [place] [facility] [address] [id number] [address]- 2546 05 Apr, 2011 [facility] [place] [facility] [address] [id number] [place] [address]- 1749 Mar, [facility] [place] [facility] [address] [id number] [place] [address]- 2546 Mar, [facility] [place] [facility] [address] [id number] [place] [address]- 2546 Feb, [facility] [place] [facility] [address] [id number] [address]- 2850 26 Feb, 2011 [facility] [place] [facility] [address] [id number] [place] [address]- 3416 21 Feb, 2011 [facility] [place] [facility] [address] [id number] [place] [address] 2546 20 Feb, 2011 [facility] [place] [facility] [address] [id number] [place] [address]- 1776 13 Feb, 2011 [facility] [place] [facility] [address] [id number] [place] [address]- 7086 28 Apr, 2010 [facility] [place] [facility] [address] [id number] [place] [address]- 7176 22 Apr, 2010 [facility] [place] [facility] [address] [id number] [place] [address]- 9406 16 Apr, 2010 [facility] [place] [facility] [address] [id number] [place] [address]- 5836 15 Apr, 2010 [facility] [place] [facility] [address] [id number] [place] [address]- 0653 15 Apr, 2010 [facility] [place] [facility] [address] [id number] [place] [address]- 3528 Apr, [facility] [place] [facility] [address] [id number] [place] [address]- 8969 24 Mar, 2010 [facility] [place] [facility] [address] [id number] [place] [address] 2546 17 Mar, 2010 [facility] [place] [facility] [address] [id number] [place] [address] 254 17 Mar, 2010 [facility] [place] [facility] [address] [id number] [place] [address]- 3133 28 Feb, 2010 [facility] [place] [facility] [address] [id number] [place] [address]- 7867 22 Feb, 2010 [facility] [place] [facility] [address] [id number] [place] [address]- 9921 Feb, [facility] [place] [facility] [address] [id number] [place] [address]- 0990 15 Feb, 2010 [facility] [address] [id number] [address]- 7593 18 Dec, 2009 [facility] [address] [id number] [address]- 0171 Dec, [facility] [address] [id number] [address]- 3442 Oct, [facility] [id number] [address]- 8451 Mar, [facility] [id number] [address]- 1059 Mar, [facility] [address] [id number] [address]- 5608 September, IMMUNIZATIONS No Known Immunizations SOCIAL HISTORY Never Assessed REASON FOR VISIT Question PLAN OF CARE VITAL SIGNS MEDICATIONS No [...]
--- OUTSIDE RECORDS SUMMARY | 2017-12-20 13:01 | XMS REPORT ---
Author Author VALERIE ZAVALA [facility] Address [address] [place] [address] Care Team Providers [facility] Director Name Role Phone VALERIE ZAVALA Unavailable PROBLEMS Type Condition ICD9-CM Code [id number] Code Onset Dates Condition Status SNOMED Code Problem Generalized anxiety disorder F41.1 Active 76644014 Problem Hypokalemia E87.6 Active 751680435 Problem Right low back pain, with sciatica presence unspecified M54.5 Active 828614071 Problem Post-traumatic stress disorder, chronic F43.12 Active 27284560 Problem Pain in right knee M25.561 Active 87867278 Problem Gastroesophageal reflux disease without esophagitis K21.9 Active 457743342 Problem UTI symptoms R39.9 Active 58706837 Problem Essential hypertension I10 Active 09524510 Problem Anxiety F41.9 Active 14320909 Problem Neuropathy G62.9 Active 750650081 Problem Other chronic pain G89.29 Active 51646669 Problem Generalized abdominal pain R10.84 Active 932679516 Problem Chronic pain G89.29 Active 35099676 Problem Back pain M54.9 Active 716112156 Problem Right foot pain M79.671 Active 87509069 Problem Panic attacks F41.0 Active 057169259 Problem Other emphysema J43.8 Active 27851953 Problem Kidney stones N20.0 Active 28869066 Problem Renal calculus, right N20.0 Active 75128216 Problem Weight decrease R63.4 Active 198269298 Problem Tobacco abuse Z72.0 Active 28776085 Problem Bone pain M89.8X9 Active 03519518 Problem Depression, unspecified depression type F32.9 Active 23695889 Problem Insomnia, unspecified type G47.00 Active 090026148 Problem Pulmonary emphysema, unspecified emphysema type J43.9 Active 34077527 Problem Right upper quadrant abdominal pain R10.11 Active 086739835 Problem Weight loss R63.4 Active 074021177 ALLERGIES No Information ENCOUNTERS Encounter Location Date Diagnosis [facility] [address], [place] [address] Nov, [facility] [id number] [place] [address] 46155- 1108 16 Nov, 2017 Pelvic pain R10.2 ; Acute pyelonephritis N10 and Essential hypertension I10 [facility] [id number] [place] [address] 86705- 8982 28 Oct, 2017 Medicare welcome exam Z00.00 [facility] [id number] [place] [address] 82005- 3945 18 Oct, 2017 Gross hematuria R31.0 ; Urinary tract infection without hematuria, site unspecified N39.0 and Weakness R53.1 [facility] [id number], [place] [address] 1245 13 Oct, 2017 [facility] [id number] [place] [address] 29253- 0040 Oct, [facility] [id number] [place] [address] 63300- 1351 Oct, Medicare welcome exam Z00.00 [facility] [id number] [address] 4272 September, Back pain M54.9 and Right anterior knee pain M25.561 [facility] [id number] [address] September, [facility] [address], [place] [address] September, [facility] [id number] [address] 6792 September, Essential hypertension I10 [facility] [address], [place] [address] 1589 September, [facility] [id number] [place] [address] 20667- 1474 September, RLQ abdominal pain R10.31 ; Low back pain M54.5 and Other chronic pain G89.29 [facility] [id number] [place] [address] 54982- 5173 Aug, Medicare welcome exam Z00.00 [facility] [id number] [place] [address] 97459- 3824 Aug, [facility] [address] 77713- 4055 Aug, Acute pyelonephritis N10 and Medicare welcome exam Z00.00 [facility] [id number] [place] [address] 97759 -0438 Aug, Dysuria R30.0 and Acute pyelonephritis N10 [facility] [id number] [place] [address] 02265- 8695 Aug, [facility] [address] 91422- 9532 Aug, [facility] [id number] [place] [address] 36544- 3344 Aug, [facility] [id number] [place] [address] 99417- 0075 Aug, [facility] [id number] [place] [address] 22648- 9127 Jul, [facility] [id number] [place] [address] 19009- 5636 Jul, Renal calculus, right N20.0 and Medicare welcome exam Z00.00 [facility] [id number] [place] [address] 60372 -4961 Jul, Dysuria R30.0 and Renal calculus, right N20.0 [facility] [id number] [place] [address] 51572- 1775 Jul, Medicare welcome exam Z00.00 [place] [address], [place] [address] 4337 13 Jun, 2017 Gastroesophageal reflux disease without esophagitis K21.9 and Generalized abdominal pain R10.84 [place] [id number] [place] [address] 67026- 9661 09 Jun, 2017 Medicare welcome exam Z00.00 [place] [id number] [place] [address] 65387- 0436 05 Jun, 2017 [place] [id number] [place] [address] 51228- 4586 05 Jun, 2017 Medicare welcome exam Z00.00 and Encounter for screening mammogram for malignant neoplasm of breast Z12.31 [place] [id number] [place] [address] 94159- 6880 02 Jun, 2017 Chronic pain G89.29 [place] [id number] [place] [address] 05246- 6314 24 May, 2017 [place] [id number] [place] [address] 45990- 7900 May, Pelvic pain R10.2 [place] [id number] [place] [address] 29727- 1195 May, Pelvic pain R10.2 [facility] [place] [id number] [place] [address] 67357 -8260 May, Renal calculus, right N20.0 [place] [id number] [place] [address] 68652- 5614 May, Hematuria, unspecified type R31.9 and Nephrolithiasis N20.0 [facility] [place] [id number] [place] [address] 88912 -8740 May, Dysuria R30.0 and Nephrolithiasis N20.0 [place] [id number] [place] [address] 23678- 6641 May, [facility] [address], [place] [address] May, Abdominal pain R10.9 and Kidney stone N20.0 [facility] [id number] [place] [address] 52157- 3906 May, [facility] [id number] [place] [address] 57877- 6398 May, Chronic pain G89.29 and Panic attacks F41.0 [facility] [address] [place] [address] 32696- 3498 May, Urinary tract infection without hematuria, site unspecified N39.0 [facility] [id number] [place] [address] 39414- 8745 Apr, Right lower quadrant abdominal pain R10.31 and Abnormal serum lipase level R74.8 [place] [id number] [place] [address] 86420- 4785 Apr, Recurrent urinary tract infection N39.0 [facility] [id number] [place] [address] 35230- 9830 Apr, UTI symptoms R39.9 ; Recurrent urinary tract infection N39.0 and Pelvic pain R10.2 [facility] [address] [place] [address] 24535- 8958 Apr, Chronic pain G89.29 and Panic attacks F41.0 [facility] [address] [place] [address] 34544- 6518 Apr, Dysuria R30.0 [facility] [id number] [place] [address] 49451- 4694 Apr, [place] [id number] [place] [address] 42151- 6060 Apr, Dysuria R30.0 and Urinary tract infection without hematuria , site unspecified N39.0 [facility] [address] [place] [address] 52103- 7686 Mar, UTI symptoms R39.9 [facility] [id number] [place] [address] 86554- 4896 Mar, [place] [id number] [place] [address] 72046- 9514 Mar, Panic attacks F41.0 and Chronic pain G89.29 [place] [address] 57927- 1879 Mar, [place] [id number] [place] [address] 77548- 6135 Mar, Dysuria R30.0 [place] [address] 13315- 9207 Mar, Dysuria R30.0 [place] [address] 94102- 3411 Feb, Chronic pain G89.29 ; Shortness of breath R06.02 ; Weight loss R63.4 ; Encounter for immunization Z23 ; Bone pain M89.8X9 ; Right anterior knee pain M25.561 and Cough R05 [place] [address] 99689- 4919 Feb, Shortness of breath R06.02 [place] [id number] [place] [address] 12873- 3106 Feb, [place] [id number] [place] [address] 39285- 5272 Feb, Panic attacks F41.0 and Chronic pain G89.29 [place] [id number] [place] [address] 15548- 5313 Feb, [place] [address] 54290- 9383 Feb, Panic attacks F41.0 ; Shortness of breath R06.02 and Encounter for immunization Z23 [place] [address] 34999- 9084 Jan, [facility] [id number] [place] [address] 87937- 5913 Jan, Anxiety F41.9 and Chronic pain G89.29 [facility] [id number] [place] [address] 03863- 3400 Dec, Anxiety F41.9 and Chronic pain G89.29 [facility] [address] 10898- 2422 Nov, Chronic pain G89.29 [facility] [id number] [place] [address] 26059- 7075 Nov, Anxiety F41.9 [place] [id number] [place] [address] 37424- 7908 Nov, Chronic pain G89.29 ; Essential hypertension I10 and Other emphysema J43.8 [place] [id number] [place] [address] 75273- 0274 Oct, Anxiety F41.9 [facility] [id number] [place] [address] 23497- 0171 Oct, [place] [id number] [place] [address] 97416- 4363 Oct, Chronic pain G89.29 [facility] [id number] [place] [address] 07185- 0758 September, Recurrent UTI N39.0 ; Neuropathy G62.9 and Anxiety F41.9 [facility] [id number] [place] [address] 28925- 6730 September, [facility] [id number] [place] [address] 25253- 2311 September, Chronic pain G89.29 [facility] [id number] [place] [address] 51193- 0717 September, [facility] [id number], [place] [address]- 9867 Aug, Post-traumatic stress disorder, chronic F43.12 ; Chronic urinary tract infection N39.0 ; Gastroesophageal reflux disease without esophagitis K21.9 ; Chronic pain G89.29 ; Essential hypertension I10 and Tobacco abuse Z72.0 [facility] [address], [place] [address]76 Aug, [facility] [id number] [place] [address] 71122 2546 Aug, Chronic pain G89.29 [facility] [id number] [place] [address] 97875- 3986 Aug, Insomnia, unspecified type G47.00 [facility] [address], [place] [address]- 6026 Aug, [facility] [id number] [place] [address] 36121- 3486 Jul, Chronic pain G89.29 [facility] [address], [place] [address]- 5337 Jul, [facility] [id number], [place] [address]- 7895 Jul, [facility] [address], [place] [address]- 6101 Jul, [facility] [address], [place] [address]- 2547 15 Jul, 2016 Recurrent UTI (urinary tract infection) N39.0 [facility] [address], [place] [address]- 2546 14 Jul, 2016 [facility] [address], [place] [address]- 2546 Jun, Chronic pain G89.29 [facility] [address], [place] [address]- 2546 Jun, [facility] [id number] [place] [address] 69899- 7325 Jun, [facility] [address] 75902- 9847 May, Chronic pain G89.29 [place] [id number] [place] [address] 25820- 2094 May, Weight loss R63.4 and Shortness of breath R06.02 [facility] [address] 59163- 8574 May, Chronic pain G89.29 ; Weight loss R63.4 and Tobacco abuse Z72.0 [place] [address] 15290- 7291 May, [place] [id number] [place] [address] 62357- 1155 May, Hypoxia R09.02 [facility] [address] 81496- 6459 May, [facility] [id number] [place] [address] 36954- 0535 May, Pulmonary emphysema, unspecified emphysema type J43.9 [facility] [id number] [place] [address] 32519 -1260 May, [facility] [id number] [place] [address] 50723- 2323 May, [facility] [id number] [place] [address] 20786- 5683 May, [facility] [id number] [place] [address] 80217- 0786 May, Chronic pain G89.29 ; Encounter for immunization Z23 ; Right anterior knee pain M25.561 and Cough R05 [facility] [id number] [place] [address] 60908- 3105 Apr, Chronic pain G89.29 [place] [id number] [place] [address] 78416- 8096 Apr, [facility] [id number] [place] [address] 51594- 8476 Apr, Generalized anxiety disorder F41.1 and Depression, unspecified depression type F32.9 [facility] [id number] [place] [address] 32833- 3383 Apr, Chronic pain G89.29 ; Hypokalemia E87.6 and Insomnia, unspecified type G47.00 [facility] [id number] [place] [address] 32501- 4486 Apr, [facility] [id number] [place] [address] 31469- 6585 Apr, Chronic pain G89.29 [facility] [id number] [place] [address] 89318- 6011 Apr, [facility] [id number] [place] [address] 23042- 5506 Mar, [facility] [id number] [place] [address] 12004- 0700 Mar, Insomnia, unspecified type G47.00 [facility] [id number] [place] [address] 37843- 1785 Mar, Chronic pain G89.29 [facility] [id number] [place] [address] 26650- 2312 Mar, [facility] [id number] [place] [address] 05947- 8160 Feb, [facility] [id number] [place] [address] 17790- 7024 Feb, [facility] [id number] [place] [address] 50784- 7241 Feb, [facility] [id number] [place] [address] 45279- 4587 Feb, [facility] [address], [place] [address]- 5872 Feb, [facility] [id number] [place] [address] 10931- 8743 Jan, [facility] [address] [place] [address] 33806- 0048 Jan, [facility] [id number] [place] [address] 16575- 9287 Jan, [facility] [address] [place] [address] 42446- 6928 13 Jan, 2016 [facility] [id number] [place] [address] 63228- 8612 Jan, [facility] [id number] [place] [address] 44659- 2833 Jan, Chronic pain G89.29 [facility] [id number] [place] [address] 60897- 8472 Jan, Chronic pain G89.29 and Fibromyalgia M79.7 [facility] [id number] [place] [address] 27647- 6237 Dec, Depression, unspecified depression type F32.9 and Generalized anxiety disorder 300.02 [facility] [address] [place] [address] 80017- 6777 Dec, Dysthymia F34.1 ; Insomnia, unspecified type G47.00 and Chronic pain G89.29 [facility] [address], [place] [address]- 8911 Dec, Chronic pain G89.29 [facility] [address] [place] [address] 47410- 8501 Dec, Insomnia, unspecified type G47.00 [facility] [address] [place] [address] 91530- 0129 Dec, Fibromyalgia M79.7 and Chronic pain G89.29 [facility] [address] [facility] [id number] [address]- 5105 Dec, [facility] [address] [facility] [id number] [place] [address] 82582- 2810 Dec, [facility] [address] [facility] [id number] [place] [address] 70926- 7242 Dec, [facility] [address] [facility] [id number] [place] [address] 57628- 5518 Dec, [facility] [address] [facility] [id number] [place] [address] 72649- 5747 Dec, Chronic pain G89.29 [facility] [id number] [place] [address] 00664- 9696 Dec, [facility] [id number] [place] [address] 76298- 0546 Dec, [facility] [address] [facility] [id number] [place] [address] 84335- 1179 Dec, [facility] [id number] [place] [address] 90976- 9293 Dec, Chronic pain G89.29 and Dysthymia F34.1 [facility] [address] [place] [address] 99376- 9517 Nov, [facility] [id number] [place] [address] 36747- 1814 Nov, Hypokalemia E87.6 and Chronic pain G89.29 [facility] [address] [facility] [id number] [place] [address] 56578- 0984 Nov, Back pain M54.9 and Pain in right knee M25.561 [facility] [address] [facility] [id number], [place] [address]- 2354 Nov, [facility] [id number] [place] [address] 42872- 1933 Nov, Chronic pain G89.29 [facility] [address] [place] [address] 38384 2546 Nov, Chronic pain G89.29 ; Weight loss R63.4 ; Bone pain M89.8X9 and Insomnia, unspecified type G47.00 [facility] [id number] [place] [address] 84537- 1746 Nov, Chronic pain G89.29 [facility] [id number] [place] [address] 31640 2546 Nov, Chronic pain G89.29 [facility] [id number] [place] [address] 89495 2546 Oct, Chronic pain G89.29 [facility] [id number] [place] [address] 52491- 2156 Oct, UTI symptoms R39.9 [facility] [id number] [place] [address] 73919 2540 Oct, Chronic pain G89.29 [facility] [id number] [place] [address] 17285- 3750 Oct, Chronic pain G89.29 [facility] [id number] [place] [address] 29959 2546 Oct, Chronic pain G89.29 [facility] [id number] [place] [address] 84541 2546 Oct, Right upper quadrant abdominal pain R10.11 [facility] [id number] [place] [address] 66481 2546 Oct, Chronic pain G89.29 [facility] [id number] [place] [address] 79026 2546 Oct, [facility] [id number] [place] [address] 94453- 3177 September, Chronic pain G89.29 [facility] [address], [place] [address]- 6021 September, Dysuria R30.0 and Urinary tract infection without hematuria , site unspecified N39.0 [facility] [address], [place] [address]- 9161 September, [facility] [id number] [address] September, Dysuria R30.0 [facility] [id number] [place] [address]- [address]27 September, Chronic pain G89.29 [facility] [id number] [place] [address] September, Chronic pain G89.29 and Essential hypertension I10 [facility] [id number] [place] [address]- [address] September, [facility] [id number] [place] [address]- [address] September, [facility] [id number] [place] [address]- [address] September, [facility] [id number] [place] [address] Aug, UTI symptoms R39.9 [facility] [id number] [address] Aug, Dysuria R30.0 [facility] [id number] [address] Aug, [facility] [id number] [address] Aug, [facility] [id number] [address] Aug, [facility] [id number] [address] Aug, Chronic pain G89.29 [facility] [id number] [address] Aug, Dysthymia F34.1 [facility] [id number] [place] [address] 70800- 0116 Aug, Conjunctivitis, unspecified conjunctivitis type, unspecified laterality H10.9 [facility] [id number] [place] [address] 10097- 7073 31 Jul, 2015 Chronic pain G89.29 ; Back pain M54.9 ; Tobacco abuse Z72.0 and Weight decrease R63.4 [facility] [id number] [place] [address] 92137- 3186 30 Jul, 2015 [facility] [id number] [place] [address] 00427- 3836 30 Jul, 2015 [facility] [id number] [place] [address] 63356- 3988 24 Jul, 2015 Chronic pain G89.29 [facility] [id number] [place] [address] 94011- 4458 22 Jul, 2015 [facility] [id number] [place] [address] 36823 2548 21 Jul, 2015 [facility] [id number] [place] [address] 00946- 7354 18 Jul, 2015 [facility] [id number] [place] [address] 52983 2547 17 Jul, 2015 [facility] [id number] [place] [address] 76363 2542 17 Jul, 2015 Chronic pain G89.29 [facility] [id number] [place] [address] 10339 2546 16 Jul, 2015 Chronic pain G89.29 [facility] [id number] [place] [address] 10346- 1368 15 Jul, 2015 [facility] [id number] [place] [address] 58725- 8439 Jul, [facility] [id number] [place] [address] 88193- 5151 Jul, [facility] [id number] [place] [address] 96624- 6576 Jul, [facility] [address] 91015- 2133 Jun, [facility] [address] 29277- 7977 Jun, Depression, unspecified depression type F32.9 [address] [place] [address] 78686- 6685 Jun, Pain in right knee M25.561 [address] [address] 08909- 3868 Jun, Chronic pain G89.29 ; Back pain M54.9 ; Bone pain M89.8X9 and Weight loss R63.4 [facility] [id number] [place] [address] 10392- 2366 Jun, [facility] [id number] [place] [address] 24309- 8911 May, [facility] [id number] [place] [address] 27306- 8867 May, UTI symptoms R39.9 ; Pain in right knee M25.561 ; Right low back pain, with sciatica presence unspecified M54.5 ; Right foot pain M79.671 ; Hypokalemia E87.6 and Screening, lipid Z13.220 [facility] [id number] [place] [address] 54786- 7665 May, [facility] [id number] [place] [address] 75896- 8415 May, [facility] [address] 43011- 4873 Mar, [facility] [id number] [place] [address] 89218- 4840 Mar, [facility] [id number] [place] [address] 33920- 9626 Mar, Hypokalemia E87.6 [facility] [id number] [place] [address] 79287- 0141 Mar, Encounter for immunization Z23 ; Pain in right leg M79.604 ; Pain in right knee M25.561 and Hypokalemia E87.6 [facility] [id number] [place] [address] 59707- 6781 Jan, [facility] [id number] [place] [address] 76047- 0786 Jan, [facility] [id number] [place] [address] 25466- 7390 Jan, Abdominal pain, generalized 789.07 [facility] [id number] [place] [address] 62325- 0096 Jan, Abdominal pain, generalized 789.07 [facility] [id number] [place] [address] 79799- 1754 Dec, [facility] [id number] [place] [address] 34076- 0441 Dec, [facility] [id number] [place] [address] 70945- 3946 Dec, [facility] [id number] [place] [address] 54045- 0385 Nov, Hallux valgus 735.0 and Hammertoe 735.4 [facility] [id number] [place] [address] 53436- 7266 Nov, [facility] [id number] [place] [address] 56397- 0964 Nov, Hallux valgus 735.0 and Hammer toe 735.4 [facility] [address] [address]- 8213 Oct, [facility] [address] 0129 Oct, [facility] [address] [address]- 5590 Oct, Pre-op evaluation V72.84 [facility] [address] [address]- 1381 Oct, [facility] [id number] [place] [address] 729685- 5157 Oct, [facility] [address] [address]- 5625 September, [facility] [id number] [place] [address] 09998- 2634 September, [facility] [address] [address]- 5715 September, Hallux valgus (acquired) 735.0 and Other hammer toe ( acquired) 735.4 [facility] [address] [address]- 7101 Aug, [facility] [address] [address]- 8421 Aug, [facility] [address] [address]- 2232 Jul, [facility] [address] [place] [address]- 1584 Jul, [facility] [address] 8792 Jul, [facility] [address] 9269 Jul, [facility] [place] [facility] [address] [id number] [place] [address]- 4550 Jul, [facility] [place] [facility] [address] [id number] [place] [address]- 7762 Jul, [facility] [place] [facility] [address] [id number] [place] [address]- 3277 Jul, [facility] [place] [facility] [address] [id number] [place] [address]- 0828 Jul, [facility] [place] [facility] [address] [id number] [place] [address]- 8298 Jun, 2014 [facility] [place] [facility] [address] [id number] [place] [address]- 9330 Jun, 2014 [facility] [place] [facility] [address] [id number] [place] [address]- 2140 Jun, 2014 [facility] [place] [facility] [address] [id number] [place] [address]- 0073 Jun, 2014 [facility] [place] [facility] [address] [id number] [place] [address]- 4327 Jun, [facility] [place] [facility] [address] [id number] [place] [address]- 9427 Jun, [facility] [place] [facility] [address] [id number] [place] [address]- 7415 Jun, 2014 [facility] [place] [facility] [address] [id number] [place] [address]- 0003 Jun, 2014 [facility] [place] [facility] [address] [id number] [place] [address]- 9468 Jun, [facility] [place] [facility] [address] [id number] [place] [address]- 6162 Jun, [facility] [place] [facility] [address] [id number] [place] [address]- 3692 May, [facility] [place] [facility] [address] [id number] [place] [address]- 6761 May, [facility] [address] [id number] [place] [address]- 1021 May, [facility] [place] [facility] [address] [id number] [place] [address]- 9214 May, [facility] [place] [facility] [address] [id number] [place] [address]- 0965 May, [facility] [place] [facility] [address] [id number] [place] [address]- 1417 May, [facility] [place] [facility] [address] [id number] [place] [address]- 4783 May, [facility] [place] [facility] [address] [id number] [place] [address]- 4289 May, [facility] [place] [facility] [address] [id number] [place] [address]- 1898 May, [facility] [place] [facility] [address] [id number] [place] [address]- 0850 May, [facility] [place] [facility] [address] [id number] [place] [address]- 1920 May, [facility] [place] [facility] [address] [id number] [place] [address]- 5370 May, [facility] [place] [facility] [address] [id number] [place] [address]- 0447 May, [facility] [place] [facility] [address] [id number] [place] [address]- 0601 May, [facility] [place] [facility] [address] [id number] [place] [address]- 4642 May, [facility] [place] [facility] [address] [id number] [place] [address]- 0566 May, [facility] [place] [facility] [address] [id number] [place] [address]- 6349 May, [facility] [place] [facility] [address] [id number] [place] [address]- 3459 May, [facility] [place] [facility] [address] [id number] [place] [address]- 6585 Apr, [facility] [place] [facility] [address] [id number] [place] 1201 Apr, [facility] [place] [facility] [address] [id number] [place] [address]- 7838 Apr, [facility] [place] [facility] [address] [id number] [place] [address]- 8974 Apr, [facility] [place] [facility] [address] [id number] [place] [address]- 8093 Apr, [facility] [place] [facility] [address] [id number] [place] [address]- 9895 Apr, [facility] [place] [facility] [address] [id number] [place] [address]- 5330 Apr, [facility] [place] [facility] [address] [id number] [place] [address]- 1849 Apr, [facility] [place] [facility] [address] [id number] [place] [address]- 3836 Apr, [facility] [place] [facility] [address] [id number] [place] [address]- 4036 Mar, [facility] [place] [facility] [address] [id number] [place] [address]- 1808 Mar, [facility] [place] [facility] [address] [id number] [place] [address]- 4739 Mar, [facility] [place] [facility] [address] [id number] [place] [address]- 3947 Mar, [facility] [place] [facility] [address] [id number] [place] [address]- 5337 Mar, [facility] [place] [facility] [address] [id number], [place] [address]- 9532 Feb, 2013 [facility] [place] [facility] [address] [id number] [place] [address]- 3110 Feb, 2013 [facility] [place] [facility] [address] [id number] [place] 8153 Feb, 2013 [facility] [place] [facility] [address] [id number] [place] [address]- 5065 Feb, 2013 [facility] [place] [facility] [address] [id number] [place] [address]- 5654 Feb, 2013 [facility] [place] [facility] [address] [id number] [place] [address]- 3072 Feb, 2013 [facility] [place] [facility] [address] [id number] [place] [address]- 0855 Feb, 2013 [facility] [place] [facility] [address] [id number], [place] [address]- 9473 Feb, 2013 [facility] [place] [facility] [address] [id number], [place] [address]- 6265 Feb, 2013 [facility] [place] [facility] [address] [id number], [place] [address]- 6075 Feb, 2013 [facility] [place] [facility] [address] [id number], [place] [address]- 0594 Feb, 2013 [facility] [place] [facility] [address] [id number], [place] [address]- 5377 Feb, 2013 [facility] [place] [facility] [address] [id number], [place] [address]- 5027 Feb, 2013 [facility] [place] [facility] [address] [id number], [place] [address]- 2801 Feb, 2013 [facility] [place] [facility] [address] [id number], [place] [address]- 0064 Feb, 2013 [facility] [place] [facility] [address] [id number], [place] [address]- 9402 Feb, 2013 [facility] [place] [facility] [address] [id number] [place] [address]- 0012 23 Jan, 2013 [facility] [place] [facility] [address] [id number] [place] [address]- 2696 23 Jan, 2013 [facility] [place] [facility] [address] [id number] [place] [address]- 7566 20 Jan, 2013 [facility] [place] [facility] [address] [id number] [place] [address]- 2766 19 Jan, 2013 [facility] [place] [facility] [address] [id number] [place] [address]- 254 11 Jan, 2013 [facility] [place] [facility] [address] [id number] [place] [address]- 8180 11 Jan, 2013 [facility] [place] [facility] [address] [id number] [place] [address]- 3609 Jan, [facility] [place] [facility] [address] [id number] [place] [address]- 3025 Jan, 2013 [facility] [place] [facility] [address] [id number] [place] [address]- 1245 Dec, [facility] [place] [facility] [address] [id number] [place] [address]- 6621 Dec, [facility] [place] [facility] [address] [id number] [place] [address]- 3456 Nov, [facility] [place] [facility] [address] [id number] [place] [address]- 5589 Nov, [facility] [place] [facility] [address] [id number] [place] [address]- 6335 Nov, [facility] [place] [facility] [address] [id number] [place] [address]- 4904 Nov, [facility] [place] [facility] [address] [id number] [place] [address]- 1199 Nov, [facility] [place] [facility] [address] [id number] [place] [address]- 0743 Nov, [facility] [place] [facility] [address] [id number] [place] [address]- 5178 Nov, [facility] [place] [facility] [address] [id number] [place] [address]- 1697 Nov, [facility] [place] [facility] [address] [id number] [place] [address]- 8897 Nov, [facility] [place] [facility] [address] [id number] [place] [address]- 3777 Oct, [facility] [place] [facility] [address] [id number] [place] [address]- 9769 Oct, [facility] [place] [facility] [address] [id number] [place] [address]- 6114 Oct, [facility] [place] [facility] [address] [id number] [place] [address]- 5333 Oct, [facility] [place] [facility] [address] [id number] [place] [address]- 3356 Oct, [facility] [place] [facility] [address] [id number] [place] [address]- 3685 Oct, [facility] [place] [facility] [address] [id number] [place] [address]- 5311 September, [facility] [place] [facility] [address] [id number] [place] [address]- 3758 September, [facility] [place] [facility] [address] [id number] [place] [address]- 6600 September, [facility] [place] [facility] [address] [id number] [place] [address]- 0405 September, [facility] [place] [facility] [address] [id number] [place] [address]- 5086 September, [facility] [place] [facility] [address] [id number] [place] [address]- 9685 September, [facility] [place] [facility] [address] [id number] [place] [address]- 0273 September, [facility] [address] [id number] [place] [address]- 7745 September, [facility] [place] [facility] [address] [id number] [place] [address]- 4581 September, [facility] [place] [facility] [address] [id number] [place] [address]- 7337 September, [facility] [place] [facility] [address] [id number] [place] [address]- 9690 September, [facility] [place] [facility] [address] [id number] [place] [address]- 6091 September, [facility] [place] [facility] [address] [id number] [place] [address]- 9459 September, [facility] [place] [facility] [address] [id number] [place] [address]- 5015 September, [facility] [place] [facility] [address] [id number] [place] [address]- 6074 September, [facility] [place] [facility] [address] [id number] [place] [address]- 3897 September, [facility] [place] [facility] [address] [id number] [place] [address]- 1035 September, [facility] [place] [facility] [address] [id number] [place] [address]- 9266 September, [facility] [place] [facility] [address] [id number] [place] [address]- 6798 September, [facility] [place] [facility] [address] [id number] [place] 8041 September, [facility] [place] [facility] [address] [id number] [place] [address]- 3734 Aug, [facility] [place] [facility] [address] [id number] [place] [address]- 3383 Aug, [facility] [place] [facility] [address] [id number] [place] [address]- 6444 28 Aug, 2013 [facility] [place] [facility] [address] [id number] [place] [address]- 6063 28 Aug, 2013 [facility] [place] [facility] [address] [id number] [place] [address]- 9617 18 Aug, 2013 [facility] [place] [facility] [address] [id number] [place] [address]- 3011 18 Aug, 2013 [facility] [place] [facility] [address] [id number] [place] [address]- 9742 16 Aug, 2013 [facility] [place] [facility] [address] [id number] [place] [address]- 8038 16 Aug, 2013 [facility] [place] [facility] [address] [id number] [place] [address]- 8482 15 Aug, 2013 [facility] [place] [facility] [address] [id number] [place] [address]- 8319 15 Aug, 2013 [facility] [place] [facility] [address] [id number] [place] [address]- 5501 14 Aug, 2013 [facility] [place] [facility] [address] [id number] [place] [address]- 8751 05 Aug, 2013 [facility] [place] [facility] [address] [id number] [place] [address]- 9260 Aug, [facility] [place] [facility] [address] [id number] [place] [address]- 6149 Aug, [facility] [place] [facility] [address] [id number] [place] [address]- 6899 Aug, [facility] [place] [facility] [address] [id number] [place] 6311 Jul, [facility] [place] [facility] [address] [id number] [place] 7480 Jul, [facility] [place] [facility] [address] [id number] [place] [address]- 7398 Jul, [facility] [place] [facility] [address] [id number] [place] [address]- 3855 Jul, [facility] [place] [facility] [address] [id number] [place] [address]- 1954 Jul, [facility] [place] [facility] [address] [id number] [place] [address]- 8344 Jul, [facility] [place] [facility] [address] [id number] [place] [address]- 6192 Jul, [facility] [place] [facility] [address] [id number] [place] [address]- 2184 Jul, [facility] [place] [facility] [address] [id number] [place] [address]- 4889 Jul, [facility] [place] [facility] [address] [id number] [place] [address]- 2343 Jul, [facility] [place] [facility] [address] [id number] [place] [address]- 9508 Jul, [facility] [place] [facility] [address] [id number] [place] [address]- 5907 Jul, [facility] [place] [facility] [address] [id number] [place] [address] Jul, [facility] [place] [facility] [address] [id number] [place] [address] Jul, [facility] [place] [facility] [address] [id number] [place] [address] Jul, [facility] [place] [facility] [address] [id number] [place] [address] Jun, [facility] [place] [facility] [address] [id number] [place] [address] Jun, [facility] [place] [facility] [address] [id number] [place] [address] Jun, [facility] [place] [facility] [address] [id number] [place] [address] Jun, [facility] [address] [id number] [place] [address] Jun, [facility] [place] [facility] [address] [id number] [place] [address] Jun, [facility] [address] [id number] [place] [address] May, [facility] [place] [facility] [address] [id number] [place] [address] May, [facility] [address] [id number] [place] [address] May, [facility] [place] [facility] [address] [id number] [place] [address] May, [facility] [address] [id number] [place] [address] May, [facility] [address] [id number] [place] [address] May, [facility] [place] [facility] [address] [id number] [place] [address] May, [facility] [address] [id number] [place] [address] May, [facility] [place] [facility] [address] [id number] [place] [address] May, [facility] [place] [facility] [address] [id number] [place] [address] May, [facility] [place] [facility] [address] [id number] [place] [address]- [address] May, [facility] [place] [facility] [address] [id number] [place] [address] May, [facility] [place] [facility] [address] [id number] [place] [address] May, [facility] [address] [id number] [place] [address]- [address] May, [facility] [place] [facility] [address] [id number] [place] [address] May, [facility] [place] [facility] [address] [id number] [place] [address] Apr, [facility] [place] [facility] [address] [id number] [place] [address] Apr, [facility] [place] [facility] [address] [id number] [place] [address] Apr, [facility] [place] [facility] [address] [id number] [place] [address] Apr, [facility] [place] [facility] [address] [id number] [place] [address]- [address] Apr, [facility] [place] [facility] [address] [id number] [place] [address] Apr, [facility] [place] [facility] [address] [id number] [place] [address] Apr, [facility] [place] [facility] [address] [id number] [place] [address] Apr, [facility] [place] [facility] [address] [id number] [place] [address] Apr, [facility] [place] [facility] [address] [id number] [place] [address] Apr, [facility] [place] [facility] [address] [id number] [place] [address] Mar, [facility] [place] [facility] [address] [id number] [place] [address] Mar, [facility] [place] [facility] [address] [id number] [place] [address] Mar, [facility] [place] [facility] [address] [id number], [place] [address] Mar, [facility] [address] [id number] [place] [address] Mar, [facility] [place] [facility] [address] [id number], [place] [address] Mar, [facility] [address] [id number] [place] [address] Mar, [facility] [place] [facility] [address] [id number] [place] [address] Mar, [facility] [address] [id number] [place] [address] Mar, [facility] [place] [facility] [address] [id number] [place] [address]- [address]98 Mar, [facility] [address] [id number], [place] [address] Mar, [facility] [place] [facility] [address] [id number], [place] [address] Mar, [facility] [address] [id number] [place] [address]- [address] Mar, [facility] [address] [id number], [place] [address] Mar, [facility] [address] [id number], [place] [address] 18 Mar, 2013 [facility] [place] [facility] [address] [id number], [place] [address] 18 Mar, 2013 [facility] [place] [facility] [address] [id number], [place] [address]- [address] 14 Mar, 2013 [facility] [place] [facility] [address] [id number], [place] [address] 14 Mar, 2013 [facility] [place] [facility] [address] [id number], [place] [address] 12 Mar, 2013 [facility] [place] [facility] [address] [id number] [place] [address]- [address] Mar, [facility] [place] [facility] [address] [id number] [place] [address]- 9068 Mar, [facility] [place] [facility] [address] [id number] [place] [address] Mar, [facility] [place] [facility] [address] [id number] [place] [address] Mar, [facility] [place] [facility] [address] [id number] [place] [address] Feb, [facility] [place] [facility] [address] [id number] [place] [address] Feb, [facility] [place] [facility] [address] [id number] [place] [address] Feb, [facility] [place] [facility] [address] [id number] [place] [address] 8431 Feb, [facility] [place] [facility] [address] [id number] [place] [address] 9013 Feb, [facility] [place] [facility] [address] [id number] [place] [address] 9535 Feb, [facility] [place] [facility] [address] [id number] [place] [address] 8783 Feb, [facility] [place] [facility] [address] [id number] [place] [address] 9232 Feb, [facility] [place] [facility] [address] [id number] [place] [address] 8614 Feb, [facility] [place] [facility] [address] [id number] [place] [address] 9100 Feb, [facility] [place] [facility] [address] [id number] [place] [address] 30 Jan, 2013 [facility] [place] [facility] [address] [id number] [place] [address] 0810 26 Jan, 2013 [facility] [place] [facility] [address] [id number] [place] [address]- 0071 24 Jan, 2013 [facility] [place] [facility] [address] [id number] [place] [address]- 3562 23 Jan, 2013 [facility] [place] [facility] [address] [id number] [place] [address] Jan, [facility] [place] [facility] [address] [id number] [place] [address] 8960 Dec, [facility] [place] [facility] [address] [id number] [place] [address]- 5124 Dec, [facility] [place] [facility] [address] [id number] [place] [address]336 Dec, [facility] [place] [facility] [address] [id number] [place] [address] 6772 Dec, [facility] [place] [facility] [address] [id number] [place] [address]- 7110 Dec, [facility] [place] [facility] [address] [id number] [place] [address] 3212 Dec, [facility] [place] [facility] [address] [id number] [place] [address]- 1104 Dec, [facility] [place] [facility] [address] [id number] [place] [address] 8780 Nov, [facility] [place] [facility] [address] [id number], [place] [address] Nov, [facility] [place] [facility] [address] [id number] [place] [address]- 5126 Nov, [facility] [place] [facility] [address] [id number] [place] [address] Nov, [facility] [place] [facility] [address] [id number] [place] [address]- 6613 Nov, [facility] [place] [facility] [address] [id number] [place] [address]- 1458 18 Oct, 2012 [facility] [address] [id number] [place] [address] 6223 14 Oct, 2012 [facility] [address] [id number] [place] [address]- 6084 06 Oct, 2012 [facility] [address] [id number] [place] [address]- 8043 September, [facility] [address] [id number] [place] [address] 5158 September, [facility] [address] [id number] [place] [address]- 5482 September, [facility] [address] [id number] [place] [address]707 September, [facility] [address] [id number] [place] [address] 4135 September, [facility] [address] [id number] [place] [address]- 6850 September, [facility] [address] [id number] [place] [address]- 0554 September, [facility] [address] [id number] [place] [address] 4488 Aug, [facility] [address] [id number] [place] [address]- 0961 Aug, [facility] [address] [id number] [place] [address] 8980 Aug, [facility] [place] [facility] [address] [id number] [place] [address]- 2365 29 Jul, 2012 [facility] [place] [facility] [address] [id number] [place] [address]- 5455 Jul, [facility] [address] [id number] [place] [address]- 2421 Jul, [facility] [place] [facility] [address] [id number] [place] [address] 8886 20 Jul, 2012 [facility] [place] [facility] [address] [id number] [place] [address]- 8069 18 Jul, 2012 [facility] [place] [facility] [address] [id number] [place] [address]- 1072 18 Jul, 2012 [facility] [place] [facility] [address] [id number] [place] [address]- 4172 Jul, [facility] [address] [id number] [place] [address]- 5924 28 Jun, 2012 [facility] [place] [facility] [address] [id number] [place] [address]- 5489 Jun, [facility] [address] [id number] [place] [address]- 0730 Jun, [facility] [place] [facility] [address] [id number] [place] [address]- 5323 Jun, [facility] [place] [facility] [address] [id number] [place] [address]- 7856 15 Jun, 2012 [facility] [place] [facility] [address] [id number] [place] [address]- 6926 Jun, [facility] [place] [facility] [address] [id number] [place] [address]- 3383 Jun, [facility] [place] [facility] [address] [id number] [place] [address]- 2541 Jun, [facility] [place] [facility] [address] [id number] [place] [address]- 9824 Jun, [facility] [place] [facility] [address] [id number] [place] [address]- 2160 Jun, [facility] [place] [facility] [address] [id number] [place] [address]- 5824 May, [facility] [place] [facility] [address] [id number] [place] [address]- 6311 22 May, 2012 [facility] [address] [id number] [place] [address]- 6896 17 May, 2012 [facility] [address] [id number] [place] [address]- 6176 17 May, 2012 [facility] [address] [id number] [place] [address]- 4744 15 May, 2012 [facility] [address] [id number] [place] [address]- 9450 07 May, 2012 [facility] [address] [id number] [place] [address] 31 Apr, 2012 [facility] [address] [id number] [place] [address]- 2615 31 Apr, 2012 [facility] [address] [id number] [place] [address]- 7196 Apr, [facility] [address] [id number] [place] [address]- 5313 28 Apr, 2012 [facility] [address] [id number] [place] [address]- 3049 26 Apr, 2012 [facility] [address] [id number] [place] [address]- 5416 20 Apr, 2012 [facility] [address] [id number] [place] [address] 2546 Apr, [facility] [address] [id number] [place] [address]- 2545 29 Mar, 2012 [facility] [address] [id number] [place] [address]- 6076 29 Mar, 2012 [facility] [address] [id number] [place] [address]- 0183 27 Mar, 2012 [facility] [address] [id number] [place] [address]- 0122 Mar, [facility] [place] [facility] [address] [id number] [place] [address]- 1352 Mar, [facility] [place] [facility] [address] [id number] [place] [address]- 3729 Mar, [facility] [place] [facility] [address] [id number] [place] [address]- 0489 Mar, [facility] [place] [facility] [address] [id number] [place] [address]- 5992 Mar, [facility] [place] [facility] [address] [id number] [place] [address]- 7545 Mar, [facility] [place] [facility] [address] [id number] [place] [address]- 6714 Mar, [facility] [place] [facility] [address] [facility] [id number] [place] [address]- 7126 Mar, [facility] [place] [facility] [address] [id number], [place] [address]- 7939 Mar, [facility] [place] [facility] [address] [facility] [id number], [place] [address]- 6832 Mar, [facility] [place] [facility] [address] [facility] [id number], [place] [address]- 1435 Mar, [facility] [place] [facility] [address] [facility] [id number], [place] [address]- 2996 Mar, [facility] [place] [facility] [address] [id number], [place] [address]- 2865 Mar, [facility] [place] [facility] [address] [id number], [place] [address]- 2059 Mar, [facility] [place] [facility] [address] [id number], [place] [address]- 5824 Feb, [facility] [place] [facility] [address] [facility] [id number], [place] [address]- 2946 Feb, [facility] [place] [facility] [address] [id number], [place] [address]- 0197 17 Feb, 2012 [facility] [place] [facility] [address] [id number] [place] [address]- 8394 17 Feb, 2012 [facility] [place] [facility] [address] [id number] [place] [address]- 0806 16 Feb, 2012 [facility] [place] [facility] [address] [id number] [place] [address]- 6456 16 Feb, 2012 [facility] [place] [facility] [address] [id number] [place] [address]- 5789 Feb, [facility] [place] [facility] [address] [id number] [place] [address]- 0269 Feb, [facility] [place] [facility] [address] [id number] [place] [address]- 3596 05 Feb, 2012 [facility] [place] [facility] [address] [facility] [id number] [place] [address]- 1946 04 Feb, 2012 [facility] [place] [facility] [address] [id number] [place] [address]- 9820 02 Feb, 2012 [facility] [place] [facility] [address] [facility] [id number] [place] [address]- 6376 27 Jan, 2012 [facility] [place] [facility] [address] [facility] [id number] [place] [address]- 8373 25 Jan, 2012 [facility] [place] [facility] [address] [id number] [place] [address]- 0489 13 Jan, 2012 [facility] [place] [facility] [address] [id number] [place] [address]- 6112 12 Jan, 2012 [facility] [place] [facility] [address] [id number] [place] [address]- 6219 07 Jan, 2012 [facility] [place] [facility] [address] [facility] [id number] [place] [address]- 6719 31 Dec, 2011 [facility] [place] [facility] [address] [facility] [id number] [place] [address]- 0695 24 Dec, 2011 [facility] [place] [facility] [address] [id number] [place] [address]- 8781 Dec, [facility] [place] [facility] [address] [id number] [place] [address]- 2134 Dec, [facility] [place] [facility] [address] [id number] [place] [address] 2546 Dec, [facility] [place] [facility] [address] [id number] [place] [address]- 4726 Dec, [facility] [place] [facility] [address] [id number] [place] [address]- 1610 Dec, [facility] [place] [facility] [address] [id number] [place] [address]- 7423 Dec, [facility] [place] [facility] [address] [id number] [place] [address]- 7354 Nov, [facility] [place] [facility] [address] [id number] [place] [address]- 2349 Nov, [facility] [place] [facility] [address] [id number] [place] [address]- 3027 Nov, [facility] [place] [facility] [address] [id number] [place] [address]- 4766 Nov, [facility] [place] [facility] [address] [id number] [place] [address]- 9333 Nov, [facility] [place] [facility] [address] [id number] [place] [address]- 2230 Oct, [facility] [place] [facility] [address] [id number] [place] [address]- 6684 Oct, [facility] [place] [facility] [address] [id number] [place] [address]- 3197 September, [facility] [place] [facility] [address] [id number] [place] [address]- 8096 September, [facility] [place] [facility] [address] [id number] [place] [address]- 0530 September, [facility] [address] [id number] [place] [address]- 3376 September, [facility] [place] [facility] [address] [id number] [place] [address]- 9404 September, [facility] [place] [facility] [address] [id number] [place] [address]- 5941 September, [facility] [place] [facility] [address] [id number] [place] [address]- 1058 September, [facility] [place] [facility] [address] [id number] [place] [address]- 6289 September, [facility] [place] [facility] [address] [id number] [place] [address]- 7712 September, [facility] [place] [facility] [address] [id number] [place] [address]- 9968 September, [facility] [place] [facility] [address] [id number] [place] [address]- 0392 September, [facility] [place] [facility] [address] [id number] [place] [address]- 6586 September, [facility] [place] [facility] [address] [id number] [place] [address]- 6546 September, [facility] [place] [facility] [address] [id number] [place] [address]- 0654 September, [facility] [place] [facility] [address] [id number] [place] [address]- 7361 24 Aug, 2011 [facility] [place] [facility] [address] [id number] [place] [address]- 9068 Aug, [facility] [place] [facility] [address] [id number] [place] [address]- 5459 13 Aug, 2011 [facility] [place] [facility] [address] [id number] [place] [address]- 3898 Aug, [facility] [place] [facility] [address] [id number] [place] [address]- 5093 23 Jul, 2011 [facility] [address] [id number] [place] [address]- 9216 13 Jul, 2011 [facility] [address] [id number] [place] [address] 2546 13 Jul, 2011 [facility] [place] [facility] [address] [facility] [id number] [place] [address] 2546 28 Jun, [address] [facility] [address] [id number] [id number] 26 Jun, 2011 [facility] [address] [id number] [place] [address]- 0036 13 Jun, 2011 [facility] [address] [id number] [place] [address]- 1126 10 Jun, 2011 [facility] [address] [id number] [place] [address] 2546 07 Jun, 2011 [facility] [address] [id number] [place] [address] 2549 07 Jun, 2011 [facility] [address] [id number] [place] [address]- 1056 03 Jun, 2011 [facility] [address] [id number] [place] [address]- 6951 02 Jun, 2011 [facility] [address] [id number] [place] [address] 2546 May, [facility] [address] [id number] [place] [address] 2541 May, [facility] [place] [facility] [address] [id number] [place] [address] 2547 May, [facility] [place] [facility] [address] [id number] [place] [address] 2546 May, [facility] [place] [facility] [address] [id number] [place] [address]- 7683 May, [facility] [place] [facility] [address] [id number] [place] [address]- 9794 May, [facility] [address] [id number] [place] [address]- 2116 May, [facility] [place] [facility] [address] [id number] [place] [address] 2546 May, [facility] [place] [facility] [address] [id number] [place] [address] 2540 May, [facility] [address] [id number] [place] [address]- 7528 May, [facility] [address] [id number] [place] [address]- 7836 May, [facility] [address] [id number] [place] [address]- 8316 May, [facility] [address] [id number] [place] [address]- 7601 May, [facility] [address] [id number] [place] [address]- 2895 May, [facility] [address] [id number] [place] [address]- 1746 Apr, [facility] [place] [facility] [address] [id number] [place] [address]- 2546 16 Apr, 2011 [facility] [place] [facility] [address] [id number], [place] [address]- 2546 05 Apr, 2011 [facility] [place] [facility] [address] [id number] [place] [address]- 0221 Mar, [facility] [place] [facility] [address] [id number] [place] [address]- 2546 Mar, [facility] [place] [facility] [address] [id number] [place] [address]- 2546 Feb, [facility] [place] [facility] [address] [id number], [place] [address]- 0570 26 Feb, 2011 [facility] [place] [facility] [address] [id number] [place] [address]- 8016 21 Feb, 2011 [facility] [place] [facility] [address] [id number] [place] [address] 2546 20 Feb, 2011 [facility] [place] [facility] [address] [id number] [place] [address]- 7536 13 Feb, 2011 [facility] [place] [facility] [address] [id number] [place] [address]- 5569 28 Apr, 2010 [facility] [place] [facility] [address] [id number] [place] [address]- 3036 22 Apr, 2010 [facility] [place] [facility] [address] [id number] [place] [address]- 2846 16 Apr, 2010 [facility] [place] [facility] [address] [id number] [place] [address]- 0877 15 Apr, 2010 [facility] [place] [facility] [address] [id number] [place] [address]- 4377 15 Apr, 2010 [facility] [place] [facility] [address] [id number] [place] [address]- 7577 Apr, [facility] [place] [facility] [address] [id number] [place] [address]- 1334 24 Mar, 2010 [facility] [place] [facility] [address] [id number] [place] [address] 2546 17 Mar, 2010 [facility] [place] [facility] [address] [id number] [place] [address] 2540 17 Mar, 2010 [facility] [place] [facility] [address] [id number] [place] [address]- 1407 28 Feb, 2010 [facility] [place] [facility] [address] [id number] [place] [address]- 9897 22 Feb, 2010 [facility] [place] [facility] [address] [id number] [place] [address]- 8921 Feb, [facility] [place] [facility] [address] [id number] [place] [address] 4623 15 Feb, 2010 [facility] [address] [id number], [place] [address]- 1597 18 Dec, 2009 [facility] [address] [id number], [place] [address]- 6284 Dec, [facility] [address] [id number], [place] [address]- 4248 Oct, [facility] [address] [id number] [address] Mar, [facility] [address] [id number] [address] Mar, [facility] [address] [id number], [place] [address] September, IMMUNIZATIONS No Known Immunizations SOCIAL HISTORY Never Assessed REASON FOR VISIT Controlled Substance Violation PLAN OF CARE VITAL SIGNS MEDICATIONS No [...]
--- OUTSIDE RECORDS SUMMARY | 2017-12-20 13:02 | XMS REPORT ---
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 [employer] Name Role Phone VALERIE ZAVALA Unavailable PROBLEMS Type Condition ICD9-CM Code ICP67-FY Code Onset Dates Condition Status SNOMED Code Problem Generalized anxiety disorder F41.1 Active 75379100 Problem Hypokalemia E87.6 Active 028881942 Problem Right low back pain, with sciatica presence unspecified M54.5 Active 420967487 Problem Post-traumatic stress disorder, chronic F43.12 Active 21088752 Problem Pain in right knee M25.561 Active 24326590 Problem Gastroesophageal reflux disease without esophagitis K21.9 Active 519784256 Problem UTI symptoms R39.9 Active 34378391 Problem Essential hypertension I10 Active 34072863 Problem Anxiety F41.9 Active 13821796 Problem Neuropathy G62.9 Active 711715825 Problem Other chronic pain G89.29 Active 53109461 Problem Generalized abdominal pain R10.84 Active 041710977 Problem Chronic pain G89.29 Active 94688090 Problem Back pain M54.9 Active 137472245 Problem Right foot pain M79.671 Active 60426102 Problem Panic attacks F41.0 Active 966443647 Problem Other emphysema J43.8 Active 53483717 Problem Kidney stones N20.0 Active 81422934 Problem Renal calculus, right N20.0 Active 06133999 Problem Weight decrease R63.4 Active 382825190 Problem Tobacco abuse Z72.0 Active 17807907 Problem Bone pain M89.8X9 Active 84919284 Problem Depression, unspecified depression type F32.9 Active 52819816 Problem Insomnia, unspecified type G47.00 Active 199425848 Problem Pulmonary emphysema, unspecified emphysema type J43.9 Active 17466107 Problem Right upper quadrant abdominal pain R10.11 Active 617936197 Problem Weight loss R63.4 Active [id number] ALLERGIES No Information ENCOUNTERS Encounter Location Date Diagnosis [facility] [id number] [address] Nov, [facility] [id number] [place] [address] 13578- 6776 16 Nov, 2017 Pelvic pain R10.2 ; Acute pyelonephritis N10 and Essential hypertension I10 [facility] [id number] [place] [address] 12808- 7999 28 Oct, 2017 Medicare welcome exam Z00.00 [facility] [id number] [place] [address] 26823- 5983 18 Oct, 2017 Gross hematuria R31.0 ; Urinary tract infection without hematuria, site unspecified N39.0 and Weakness R53.1 [facility] [id number] [address] 2285 13 Oct, 2017 [facility] [id number] [place] [address] 84248- 5428 Oct, [facility] [id number] [place] [address] 36165- 1986 Oct, Medicare welcome exam Z00.00 [facility] [id number] [address] 8134 September, Back pain M54.9 and Right anterior knee pain M25.561 [facility] [id number] [address] 6009 September, [facility] [id number] [address] 0097 September, [facility] [id number] [address] 0673 September, Essential hypertension I10 [facility] [address] [address] 0564 September, [facility] [id number] [place] [address] 84820- 7320 September, RLQ abdominal pain R10.31 ; Low back pain M54.5 and Other chronic pain G89.29 [facility] [id number] [place] [address] 19610- 0730 Aug, Medicare welcome exam Z00.00 [facility] [id number] [place] [address] 12797- 8179 Aug, [facility] [address] 03282- 0385 Aug, Acute pyelonephritis N10 and Medicare welcome exam Z00.00 [facility] [id number] [place] [address] 26762 -9614 Aug, Dysuria R30.0 and Acute pyelonephritis N10 [facility] [id number] [place] [address] 02671- 8283 Aug, [facility] [address] 70538- 5960 Aug, [facility] [id number] [place] [address] 42951- 6346 Aug, [facility] [id number] [place] [address] 88754- 0961 Aug, [facility] [id number] [place] [address] 89660- 7043 Jul, [facility] [id number] [place] [address] 12556- 5311 Jul, Renal calculus, right N20.0 and Medicare welcome exam Z00.00 [facility] [id number] [place] [address] 09006 -1816 Jul, Dysuria R30.0 and Renal calculus, right N20.0 [facility] [id number] [place] [address] 81538- 9811 Jul, Medicare welcome exam Z00.00 [place] [id number] [address] 2990 13 Jun, 2017 Gastroesophageal reflux disease without esophagitis K21.9 and Generalized abdominal pain R10.84 [place] [id number] [place] [address] 59490- 9783 09 Jun, 2017 Medicare welcome exam Z00.00 [place] [id number] [place] [address] 62356- 6931 05 Jun, 2017 [place] [id number] [place] [address] 31676- 1889 05 Jun, 2017 Medicare welcome exam Z00.00 and Encounter for screening mammogram for malignant neoplasm of breast Z12.31 [place] [id number] [place] [address] 46297- 7930 02 Jun, 2017 Chronic pain G89.29 [place] [id number] [place] [address] 76551- 2734 24 May, 2017 [place] [id number] [place] [address] 84980- 8901 May, Pelvic pain R10.2 [place] [id number] [place] [address] 34123- 0924 May, Pelvic pain R10.2 [facility] [place] [id number] [place] [address] 25902 -7261 May, Renal calculus, right N20.0 [place] [id number] [place] [address] 37244- 4875 May, Hematuria, unspecified type R31.9 and Nephrolithiasis N20.0 [facility] [place] [id number] [place] [address] 05681 -6728 May, Dysuria R30.0 and Nephrolithiasis N20.0 [place] [id number] [place] [address] 18380- 8327 May, [facility] [address], [place] [address] May, Abdominal pain R10.9 and Kidney stone N20.0 [facility] [id number] [place] [address] 93858- 7727 May, [facility] [id number] [place] [address] 93267- 5032 May, Chronic pain G89.29 and Panic attacks F41.0 [facility] [id number] [place] [address] 07964- 9181 May, Urinary tract infection without hematuria, site unspecified N39.0 [facility] [id number] [place] [address] 72879- 8967 Apr, Right lower quadrant abdominal pain R10.31 and Abnormal serum lipase level R74.8 [place] [id number] [place] [address] 67568- 2719 Apr, Recurrent urinary tract infection N39.0 [facility] [id number] [place] [address] 21002- 3687 Apr, UTI symptoms R39.9 ; Recurrent urinary tract infection N39.0 and Pelvic pain R10.2 [facility] [id number] [place] [address] 52516- 2391 Apr, Chronic pain G89.29 and Panic attacks F41.0 [facility] [id number] [place] [address] 96865- 1072 Apr, Dysuria R30.0 [facility] [id number] [place] [address] 55855- 2731 Apr, [place] [id number] [place] [address] 65718- 8249 Apr, Dysuria R30.0 and Urinary tract infection without hematuria , site unspecified N39.0 [facility] [id number] [place] [address] 97874- 6172 Mar, UTI symptoms R39.9 [facility] [id number] [place] [address] 08174- 2123 Mar, [place] [id number] [place] [address] 56490- 6904 Mar, Panic attacks F41.0 and Chronic pain G89.29 [place] [address] 58774- 7413 Mar, [place] [id number] [place] [address] 10424- 2197 Mar, Dysuria R30.0 [place] [address] 64126- 8116 Mar, Dysuria R30.0 [place] [address] 54815- 5060 Feb, Chronic pain G89.29 ; Shortness of breath R06.02 ; Weight loss R63.4 ; Encounter for immunization Z23 ; Bone pain M89.8X9 ; Right anterior knee pain M25.561 and Cough R05 [place] [address] 84191- 3431 Feb, Shortness of breath R06.02 [place] [id number] [place] [address] 00310- 5307 Feb, [place] [id number] [place] [address] 24694- 5294 Feb, Panic attacks F41.0 and Chronic pain G89.29 [place] [id number] [place] [address] 52147- 8484 Feb, [place] [address] 35133- 5224 Feb, Panic attacks F41.0 ; Shortness of breath R06.02 and Encounter for immunization Z23 [place] [address] 83291- 3650 Jan, [facility] [id number] [place] [address] 28722- 5132 Jan, Anxiety F41.9 and Chronic pain G89.29 [facility] [id number] [place] [address] 90998- 2878 Dec, Anxiety F41.9 and Chronic pain G89.29 [facility] [address] 51949- 4027 Nov, Chronic pain G89.29 [facility] [id number] [place] [address] 25679- 5215 Nov, Anxiety F41.9 [place] [id number] [place] [address] 48442- 6480 Nov, Chronic pain G89.29 ; Essential hypertension I10 and Other emphysema J43.8 [place] [id number] [place] [address] 87361- 3065 Oct, Anxiety F41.9 [facility] [id number] [place] [address] 68834- 0136 Oct, [place] [id number] [place] [address] 65960- 5048 Oct, Chronic pain G89.29 [facility] [id number] [place] [address] 33947- 4015 September, Recurrent UTI N39.0 ; Neuropathy G62.9 and Anxiety F41.9 [facility] [id number] [place] [address] 42983- 9773 September, [facility] [id number] [place] [address] 67286- 9594 September, Chronic pain G89.29 [facility] [id number] [place] [address] 65756- 3626 September, [facility] [id number] [address]- 8102 Aug, Post-traumatic stress disorder, chronic F43.12 ; Chronic urinary tract infection N39.0 ; Gastroesophageal reflux disease without esophagitis K21.9 ; Chronic pain G89.29 ; Essential hypertension I10 and Tobacco abuse Z72.0 [facility] [address], [place] [address] Aug, [facility] [id number] [place] [address] 44601 2546 Aug, Chronic pain G89.29 [facility] [id number] [place] [address] 38100- 9796 Aug, Insomnia, unspecified type G47.00 [facility] [address], [place] [address]- 0996 Aug, [facility] [id number] [place] [address] 46036- 8540 Jul, Chronic pain G89.29 [facility] [address], [place] [address]- 2443 Jul, [facility] [id number] [address]- 5302 Jul, [facility] [address], [place] [address]- 8753 Jul, [facility] [address], [place] [address]- 2542 15 Jul, 2016 Recurrent UTI (urinary tract infection) N39.0 [facility] [address], [place] [address]- 2546 14 Jul, 2016 [facility] [address], [place] [address]- 2546 Jun, Chronic pain G89.29 [facility] [address] [address]- 2546 Jun, [facility] [id number] [place] [address] 38439- 2698 Jun, [facility] [address] 31265- 5493 May, Chronic pain G89.29 [place] [id number] [place] [address] 29396- 0595 May, Weight loss R63.4 and Shortness of breath R06.02 [facility] [address] 59324- 3440 May, Chronic pain G89.29 ; Weight loss R63.4 and Tobacco abuse Z72.0 [place] [address] 51927- 6124 May, [place] [id number] [place] [address] 49346- 1083 May, Hypoxia R09.02 [facility] [address] 61618- 4056 May, [facility] [id number] [place] [address] 93583- 1867 May, Pulmonary emphysema, unspecified emphysema type J43.9 [facility] [id number] [place] [address] 93119 -8964 May, [facility] [id number] [place] [address] 89156- 2889 May, [facility] [id number] [place] [address] 05180- 8195 May, [facility] [id number] [place] [address] 07513- 2184 May, Chronic pain G89.29 ; Encounter for immunization Z23 ; Right anterior knee pain M25.561 and Cough R05 [facility] [id number] [place] [address] 33000- 5288 Apr, Chronic pain G89.29 [place] [id number] [place] [address] 31594- 0214 Apr, [facility] [id number] [place] [address] 93462- 6575 Apr, Generalized anxiety disorder F41.1 and Depression, unspecified depression type F32.9 [facility] [id number] [place] [address] 97158- 9720 Apr, Chronic pain G89.29 ; Hypokalemia E87.6 and Insomnia, unspecified type G47.00 [facility] [id number] [place] [address] 68693- 9427 Apr, [facility] [id number] [place] [address] 24267- 7438 Apr, Chronic pain G89.29 [facility] [id number] [place] [address] 92883- 7350 Apr, [facility] [id number] [place] [address] 75552- 9063 Mar, [facility] [id number] [place] [address] 25599- 4262 Mar, Insomnia, unspecified type G47.00 [facility] [id number] [place] [address] 07365- 0802 Mar, Chronic pain G89.29 [facility] [id number] [place] [address] 44718- 9556 Mar, [facility] [id number] [place] [address] 29318- 5078 Feb, [facility] [id number] [place] [address] 71875- 0195 Feb, [facility] [id number] [place] [address] 53150- 0633 Feb, [facility] [id number] [place] [address] 36994- 5662 Feb, [facility] [address], [place] [address]- 5151 Feb, [facility] [id number] [place] [address] 54113- 2862 Jan, [facility] [id number] [place] [address] 38513- 0303 Jan, [facility] [id number] [place] [address] 94500- 4726 Jan, [facility] [id number] [place] [address] 83378- 4928 13 Jan, 2016 [facility] [id number] [place] [address] 43072- 1570 Jan, [facility] [id number] [place] [address] 81872- 9082 Jan, Chronic pain G89.29 [facility] [id number] [place] [address] 81147- 8185 Jan, Chronic pain G89.29 and Fibromyalgia M79.7 [facility] [id number] [place] [address] 01934- 8497 Dec, Depression, unspecified depression type F32.9 and Generalized anxiety disorder 300.02 [facility] [id number] [place] [address] 58195- 5462 Dec, Dysthymia F34.1 ; Insomnia, unspecified type G47.00 and Chronic pain G89.29 [facility] [address] [address]- 1975 Dec, Chronic pain G89.29 [facility] [id number] [place] [address] 01706- 9556 Dec, Insomnia, unspecified type G47.00 [facility] [id number] [place] [address] 06215- 5904 Dec, Fibromyalgia M79.7 and Chronic pain G89.29 [facility] [address] [facility] [id number] [address]- 9927 Dec, [facility] [address] [facility] [id number] [place] [address] 13123- 4350 Dec, [facility] [address] [facility] [id number] [place] [address] 87660- 5458 Dec, [facility] [address] [facility] [id number] [place] [address] 68819- 5778 Dec, [facility] [address] [facility] [id number] [place] [address] 95433- 7269 Dec, Chronic pain G89.29 [facility] [id number] [place] [address] 77917- 1371 Dec, [facility] [id number] [place] [address] 01431- 2181 Dec, [facility] [address] [facility] [id number] [place] [address] 30624- 6122 Dec, [facility] [id number] [place] [address] 89138- 4073 Dec, Chronic pain G89.29 and Dysthymia F34.1 [facility] [id number] [place] [address] 21400- 8102 Nov, [facility] [address] [id number] [place] [address] 16874- 5337 Nov, Hypokalemia E87.6 and Chronic pain G89.29 [facility] [address] [facility] [id number] [place] [address] 89159- 7896 Nov, Back pain M54.9 and Pain in right knee M25.561 [facility] [address] [facility] [id number] [address]- 5120 Nov, [facility] [id number] [place] [address] 08590- 2625 Nov, Chronic pain G89.29 [facility] [id number] [place] [address] 87700 2546 Nov, Chronic pain G89.29 ; Weight loss R63.4 ; Bone pain M89.8X9 and Insomnia, unspecified type G47.00 [facility] [id number] [place] [address] 83792- 2886 Nov, Chronic pain G89.29 [facility] [id number] [place] [address] 53430 2546 Nov, Chronic pain G89.29 [facility] [id number] [place] [address] 83366 2546 Oct, Chronic pain G89.29 [facility] [id number] [place] [address] 50298- 7556 Oct, UTI symptoms R39.9 [facility] [id number] [place] [address] 86388 2543 Oct, Chronic pain G89.29 [facility] [id number] [place] [address] 12950- 7067 Oct, Chronic pain G89.29 [facility] [id number] [place] [address] 30812 2546 Oct, Chronic pain G89.29 [facility] [id number] [place] [address] [id number] 2546 Oct, Right upper quadrant abdominal pain R10.11 [facility] [id number] [place] [address] [id number] 2546 Oct, Chronic pain G89.29 [facility] [id number] [place] [address] [id number] 2546 Oct, [facility] [id number] [place] [address] 14904- 5313 September, Chronic pain G89.29 [facility] [id number] [address] September, Dysuria R30.0 and Urinary tract infection without hematuria , site unspecified N39.0 [facility] [id number] [address] September, [facility] [id number] [address] September, Dysuria R30.0 [facility] [id number] [place] [address]25- 1994 September, Chronic pain G89.29 [facility] [id number] [place] [address] 09081- 4609 September, Chronic pain G89.29 and Essential hypertension I10 [facility] [id number] [place] [address] 00126- 2137 September, [facility] [id number] [place] [address] 77699- 6741 September, [facility] [id number] [place] [address] 56662- 9298 September, [facility] [id number] [place] [address] 27764- 2446 Aug, UTI symptoms R39.9 [facility] [id number] [address] Aug, Dysuria R30.0 [facility] [id number] [address] Aug, [facility] [id number] [address] Aug, [facility] [id number] [address] Aug, [facility] [id number] [address] Aug, Chronic pain G89.29 [facility] [id number] [address] Aug, Dysthymia F34.1 [facility] [id number] [place] [address] 45226- 5736 Aug, Conjunctivitis, unspecified conjunctivitis type, unspecified laterality H10.9 [facility] [id number] [place] [address] 99713- 9877 31 Jul, 2015 Chronic pain G89.29 ; Back pain M54.9 ; Tobacco abuse Z72.0 and Weight decrease R63.4 [facility] [id number] [place] [address] 78807- 3056 30 Jul, 2015 [facility] [id number] [place] [address] 17658- 4056 30 Jul, 2015 [facility] [id number] [place] [address] 61119- 6726 24 Jul, 2015 Chronic pain G89.29 [facility] [id number] [place] [address] 89696- 5894 22 Jul, 2015 [facility] [id number] [place] [address] 55154 254 21 Jul, 2015 [facility] [id number] [place] [address] 91921- 5806 18 Jul, 2015 [facility] [id number] [place] [address] 19875 2541 17 Jul, 2015 [facility] [id number] [place] [address] 33056 2541 17 Jul, 2015 Chronic pain G89.29 [facility] [id number] [place] [address] 23912 2546 16 Jul, 2015 Chronic pain G89.29 [facility] [id number] [place] [address] 03628- 4151 15 Jul, 2015 [facility] [id number] [place] [address] 55818- 0353 Jul, [facility] [id number] [place] [address] 82294- 5694 Jul, [facility] [id number] [place] [address] 53129- 9380 Jul, [facility] [address] 35342- 0779 Jun, [facility] [address] 15910- 4240 Jun, Depression, unspecified depression type F32.9 [place] [address] 19841- 7354 Jun, Pain in right knee M25.561 [place] [address] 43897- 4376 Jun, Chronic pain G89.29 ; Back pain M54.9 ; Bone pain M89.8X9 and Weight loss R63.4 [facility] [id number] [place] [address] 14832- 6701 Jun, [facility] [id number] [place] [address] 93970- 7400 May, [facility] [id number] [place] [address] 75082- 5269 May, UTI symptoms R39.9 ; Pain in right knee M25.561 ; Right low back pain, with sciatica presence unspecified M54.5 ; Right foot pain M79.671 ; Hypokalemia E87.6 and Screening, lipid Z13.220 [facility] [id number] [place] [address] 64906- 7121 May, [facility] [id number] [place] [address] 95024- 0939 May, [facility] [address] 26970- 7268 Mar, [facility] [id number] [place] [address] 46128- 0796 Mar, [facility] [id number] [place] [address] 42367- 2566 Mar, Hypokalemia E87.6 [facility] [id number] [place] [address] 61741- 8856 Mar, Pain in right leg M79.604 ; Encounter for immunization Z23 ; Pain in right knee M25.561 and Hypokalemia E87.6 [facility] [id number] [place] [address] 21769- 5216 Jan, [facility] [id number] [place] [address] 56787- 1016 Jan, [facility] [id number] [place] [address] 70160- 0324 Jan, Abdominal pain, generalized 789.07 [facility] [id number] [place] [address] 25338- 7211 Jan, Abdominal pain, generalized 789.07 [facility] [id number] [place] [address] 17783- 4384 Dec, [facility] [id number] [place] [address] 29510- 4842 Dec, [facility] [id number] [place] [address] 56287- 9306 Dec, [facility] [id number] [place] [address] 87378- 0061 Nov, Hallux valgus 735.0 and Hammertoe 735.4 [facility] [id number] [place] [address] 55338- 5646 Nov, [facility] [id number] [place] [address] 10695- 6511 Nov, Hallux valgus 735.0 and Hammer toe 735.4 [facility] [id number] [address]- 0965 Oct, [facility] [id number] 5986 Oct, [facility] [id number] [address]- 6322 Oct, Pre-op evaluation V72.84 [facility] [id number] [address]- 0714 Oct, [facility] [id number] [place] [address] 755808- 8708 Oct, [facility] [id number] [address]- 6170 September, [facility] [id number] [place] [address] 02369- 4085 September, [facility] [id number] [address]- 1602 September, Hallux valgus (acquired) 735.0 and Other hammer toe ( acquired) 735.4 [facility] [id number] [address]- 3605 Aug, [facility] [id number] [address]- 8955 Aug, [facility] [id number] [address]- 0104 Jul, [facility] [id number] [address]- 9331 Jul, [facility] [id number] 7926 Jul, [facility] [id number] 7389 Jul, [facility] [place] [facility] [address] [id number] [place] [address]- 3893 Jul, [facility] [place] [facility] [address] [id number] [place] [address]- 4493 Jul, [facility] [place] [facility] [address] [id number] [place] [address]- 1948 Jul, [facility] [place] [facility] [address] [id number] [place] [address]- 9477 Jul, [facility] [place] [facility] [address] [id number] [place] [address]- 7223 Jun, 2014 [facility] [place] [facility] [address] [id number] [place] [address]- 5225 Jun, 2014 [facility] [place] [facility] [address] [id number] [place] [address]- 6738 Jun, 2014 [facility] [place] [facility] [address] [id number] [place] [address]- 7284 Jun, 2014 [facility] [place] [facility] [address] [id number] [place] [address]- 1512 Jun, [facility] [place] [facility] [address] [id number] [place] [address]- 8394 Jun, [facility] [place] [facility] [address] [id number] [place] [address]- 7801 Jun, 2014 [facility] [place] [facility] [address] [id number] [place] [address]- 2227 Jun, 2014 [facility] [place] [facility] [address] [id number] [place] [address]- 9284 Jun, [facility] [place] [facility] [address] [id number] [place] [address]- 1175 Jun, [facility] [place] [facility] [address] [id number] [place] [address]- 5380 May, [facility] [place] [facility] [address] [id number] [place] [address]- 4344 May, [facility] [place] [facility] [address] [id number] [place] [address]- 1384 May, [facility] [place] [facility] [address] [id number] [place] [address]- 4086 May, [facility] [place] [facility] [address] [id number] [place] [address]- 0636 May, [facility] [place] [facility] [address] [id number] [place] [address]- 1958 May, [facility] [place] [facility] [address] [id number] [place] [address]- 9136 May, [facility] [place] [facility] [address] [id number] [place] [address]- 6427 May, [facility] [place] [facility] [address] [id number] [place] [address]- 3554 May, [facility] [place] [facility] [address] [id number] [place] [address]- 4630 May, [facility] [place] [facility] [address] [id number] [place] [address]- 3046 May, [facility] [place] [facility] [address] [id number] [place] [address]- 7845 May, [facility] [place] [facility] [address] [id number] [place] [address]- 5169 May, [facility] [place] [facility] [address] [id number] [place] [address]- 7521 May, [facility] [place] [facility] [address] [id number] [place] [address]- 0309 May, [facility] [place] [facility] [address] [id number] [place] [address]- 0466 May, [facility] [place] [facility] [address] [id number] [place] [address]- 0977 May, [facility] [place] [facility] [address] [id number] [place] [address]- 6230 May, [facility] [place] [facility] [address] [id number] [place] [address]- 7658 Apr, [facility] [place] [facility] [address] [id number] [place] 0953 Apr, [facility] [place] [facility] [address] [id number] [place] [address]- 7122 Apr, [facility] [place] [facility] [address] [id number] [place] [address]- 1636 Apr, [facility] [place] [facility] [address] [id number] [place] [address]- 3930 Apr, [facility] [place] [facility] [address] [id number] [place] [address]- 1438 Apr, [facility] [place] [facility] [address] [id number] [place] [address]- 2668 Apr, [facility] [place] [facility] [address] [id number] [place] [address]- 8645 Apr, [facility] [place] [facility] [address] [id number] [place] [address]- 8562 Apr, [facility] [place] [facility] [address] [id number] [place] [address]- 4358 Mar, [facility] [place] [facility] [address] [id number] [place] [address]- 5120 Mar, [facility] [place] [facility] [address] [id number] [place] [address]- 2927 Mar, [facility] [place] [facility] [address] [id number] [place] [address]- 9013 Mar, [facility] [place] [facility] [address] [id number] [place] [address]- 3893 Mar, [facility] [place] [facility] [address] [id number] [address]- 4076 Feb, 2013 [facility] [place] [facility] [address] [id number] [place] [address]- 1793 Feb, 2013 [facility] [place] [facility] [address] [id number] [place] 2644 Feb, 2013 [facility] [place] [facility] [address] [id number] [place] [address]- 6629 Feb, 2013 [facility] [place] [facility] [address] [id number] [place] [address]- 8443 Feb, 2013 [facility] [place] [facility] [address] [id number] [place] [address]- 3709 Feb, 2013 [facility] [place] [facility] [address] [id number] [place] [address]- 0712 Feb, 2013 [facility] [place] [facility] [address] [id number], [place] [address]- 0600 Feb, 2013 [facility] [place] [facility] [address] [id number], [place] [address]- 6701 Feb, 2013 [facility] [place] [facility] [address] [id number], [place] [address]- 7134 Feb, 2013 [facility] [place] [facility] [address] [id number], [place] [address]- 2324 Feb, 2013 [facility] [place] [facility] [address] [id number], [place] [address]- 2160 Feb, 2013 [facility] [place] [facility] [address] [id number], [place] [address]- 9493 Feb, 2013 [facility] [place] [facility] [address] [id number], [place] [address]- 2917 Feb, 2013 [facility] [place] [facility] [address] [id number], [place] [address]- 6235 Feb, 2013 [facility] [place] [facility] [address] [id number], [place] [address]- 9675 Feb, 2013 [facility] [place] [facility] [address] [id number] [place] [address]- 7093 23 Jan, 2013 [facility] [place] [facility] [address] [id number] [place] [address]- 7216 23 Jan, 2013 [facility] [place] [facility] [address] [id number] [place] [address]- 1196 20 Jan, 2013 [facility] [place] [facility] [address] [id number] [place] [address]- 6396 19 Jan, 2013 [facility] [place] [facility] [address] [id number] [place] [address]- 2544 11 Jan, 2013 [facility] [place] [facility] [address] [id number] [place] [address]- 7669 11 Jan, 2013 [facility] [place] [facility] [address] [id number] [place] [address]- 7004 Jan, [facility] [place] [facility] [address] [id number] [place] [address]- 1890 Jan, 2013 [facility] [place] [facility] [address] [id number] [place] [address]- 8124 Dec, [facility] [place] [facility] [address] [id number] [place] [address]- 8373 Dec, [facility] [place] [facility] [address] [id number] [place] [address]- 5744 Nov, [facility] [place] [facility] [address] [id number] [place] [address]- 3569 Nov, [facility] [place] [facility] [address] [id number] [place] [address]- 2754 Nov, [facility] [place] [facility] [address] [id number] [place] [address]- 3312 Nov, [facility] [place] [facility] [address] [id number] [place] [address]- 8831 Nov, [facility] [place] [facility] [address] [id number] [place] [address]- 7413 Nov, [facility] [place] [facility] [address] [id number] [place] [address]- 5128 Nov, [facility] [place] [facility] [address] [id number] [place] [address]- 3826 Nov, [facility] [place] [facility] [address] [id number] [place] [address]- 7018 Nov, [facility] [place] [facility] [address] [id number] [place] [address]- 7908 Oct, [facility] [place] [facility] [address] [id number] [place] [address]- 9639 Oct, [facility] [place] [facility] [address] [id number] [place] [address]- 0673 Oct, [facility] [place] [facility] [address] [id number] [place] [address]- 4889 Oct, [facility] [place] [facility] [address] [id number] [place] [address]- 8608 Oct, [facility] [place] [facility] [address] [id number] [place] [address]- 5759 Oct, [facility] [place] [facility] [address] [id number] [place] [address]- 7713 September, [facility] [place] [facility] [address] [id number] [place] [address]- 1103 September, [facility] [place] [facility] [address] [id number] [place] [address]- 3990 September, [facility] [place] [facility] [address] [id number] [place] [address]- 5927 September, [facility] [place] [facility] [address] [id number] [place] [address]- 8126 September, [facility] [place] [facility] [address] [id number] [place] [address]- 1690 September, [facility] [place] [facility] [address] [id number] [place] [address]- 9079 September, [facility] [address] [id number] [place] [address]- 5350 September, [facility] [place] [facility] [address] [id number] [place] [address]- 1069 September, [facility] [place] [facility] [address] [id number] [place] [address]- 9090 September, [facility] [place] [facility] [address] [id number] [place] [address]- 9614 September, [facility] [place] [facility] [address] [id number] [place] [address]- 1491 September, [facility] [place] [facility] [address] [id number] [place] [address]- 2095 September, [facility] [place] [facility] [address] [id number] [place] [address]- 4103 September, [facility] [place] [facility] [address] [id number] [place] [address]- 2715 September, [facility] [place] [facility] [address] [id number] [place] [address]- 7737 September, [facility] [place] [facility] [address] [id number] [place] [address]- 7576 September, [facility] [place] [facility] [address] [id number] [place] [address]- 3378 September, [facility] [place] [facility] [address] [id number] [place] [address]- 6006 September, [facility] [place] [facility] [address] [id number] [place] 8949 September, [facility] [place] [facility] [address] [id number] [place] [address]- 9363 Aug, [facility] [place] [facility] [address] [id number] [place] [address]- 3666 Aug, [facility] [place] [facility] [address] [id number] [place] [address]- 9352 28 Aug, 2013 [facility] [place] [facility] [address] [id number] [place] [address]- 3233 28 Aug, 2013 [facility] [place] [facility] [address] [id number] [place] [address]- 7207 18 Aug, 2013 [facility] [place] [facility] [address] [id number] [place] [address]- 2353 18 Aug, 2013 [facility] [place] [facility] [address] [id number] [place] [address]- 2642 16 Aug, 2013 [facility] [place] [facility] [address] [id number] [place] [address]- 6478 16 Aug, 2013 [facility] [place] [facility] [address] [id number] [place] [address]- 4579 15 Aug, 2013 [facility] [place] [facility] [address] [id number] [place] [address]- 1537 15 Aug, 2013 [facility] [place] [facility] [address] [id number] [place] [address]- 3209 14 Aug, 2013 [facility] [place] [facility] [address] [id number] [place] [address]- 4196 05 Aug, 2013 [facility] [place] [facility] [address] [id number] [place] [address]- 0115 Aug, [facility] [place] [facility] [address] [id number] [place] [address]- 2191 Aug, [facility] [place] [facility] [address] [id number] [place] [address]- 4542 Aug, [facility] [place] [facility] [address] [id number] [place] 5105 Jul, [facility] [place] [facility] [address] [id number] [place] 9200 Jul, [facility] [place] [facility] [address] [id number] [place] [address]- 3290 Jul, [facility] [place] [facility] [address] [id number] [place] [address]- 2922 Jul, [facility] [place] [facility] [address] [id number] [place] [address]- 7163 Jul, [facility] [place] [facility] [address] [id number] [place] [address]- 3920 Jul, [facility] [place] [facility] [address] [id number] [place] [address]- 5551 Jul, [facility] [place] [facility] [address] [id number] [place] [address]- 8842 Jul, [facility] [place] [facility] [address] [id number] [place] [address]- 4729 Jul, [facility] [place] [facility] [address] [id number] [place] [address]- 9746 Jul, [facility] [place] [facility] [address] [id number] [place] [address]- 8763 Jul, [facility] [place] [facility] [address] [id number] [place] [address]- 3326 Jul, [facility] [place] [facility] [address] [id number] [place] [address] Jul, [facility] [place] [facility] [address] [id number] [place] [address] Jul, [facility] [place] [facility] [address] [id number] [place] [address] Jul, [facility] [place] [facility] [address] [id number] [place] [address] Jun, [facility] [place] [address] [id number] [place] [address] Jun, [facility] [place] [facility] [address] [id number] [place] [address] Jun, [facility] [address] [id number] [place] [address] Jun, [facility] [address] [id number] [place] [address] Jun, [facility] [address] [id number] [place] [address] Jun, [facility] [address] [id number] [place] [address] May, [facility] [address] [id number] [place] [address] May, [facility] [address] [id number] [place] [address] May, [facility] [address] [id number] [place] [address] May, [facility] [address] [id number] [place] [address] May, [facility] [address] [id number] [place] [address] May, [facility] [address] [id number] [place] [address] May, [facility] [address] [id number] [place] [address] May, [facility] [address] [id number] [place] [address] May, [facility] [address] [id number] [place] [address] May, [facility] [address] [id number] [place] [address] May, [facility] [address] [id number] [place] [address] May, [facility] [address] [id number] [place] [address] May, [facility] [address] [id number] [place] [address] May, [facility] [address] [id number] [place] [address]- [address] May, [facility] [address] [id number] [place] [address]- [address] Apr, [facility] [address] [id number] [place] [address]- [address] Apr, [facility] [place] [facility] [address] [id number] [place] [address] Apr, [facility] [address] [id number] [place] [address] Apr, [facility] [address] [id number] [place] [address] Apr, [facility] [address] [id number] [place] [address] Apr, [facility] [address] [id number] [place] [address] Apr, [facility] [address] [id number] [place] [address] Apr, [facility] [address] [id number] [place] [address] Apr, [facility] [address] [id number] [place] [address] Apr, [facility] [address] [id number] [place] [address] Mar, [facility] [address] [id number] [place] [address] Mar, [facility] [address] [id number] [place] [address] Mar, [facility] [address] [id number], [place] [address] Mar, [facility] [address] [id number] [place] [address] Mar, [facility] [address] [id number], [place] [address] Mar, [facility] [address] [id number] [place] [address]- [address] Mar, [facility] [address] [id number] [place] [address] Mar, [facility] [address] [id number] [place] [address]- [address] Mar, [facility] [address] [id number] [place] [address]- [address] Mar, [facility] [address] [id number], [place] [address] Mar, [facility] [address] [id number], [place] [address] Mar, [facility] [address] [id number] [place] [address]- [address] Mar, [facility] [address] [id number], [place] [address] Mar, [facility] [address] [id number], [place] [address]- [address] 18 Mar, 2013 [facility] [address] [id number], [place] [address] 18 Mar, 2013 [facility] [address] [id number], [place] [address]- [address] 14 Mar, 2013 [facility] [address] [id number], [place] [address] 14 Mar, 2013 [facility] [address] [id number], [place] [address]- [address] 12 Mar, 2013 [facility] [address] [id number] [place] [address] Mar, [facility] [address] [id number] [place] [address] Mar, [facility] [address] [id number] [place] [address] Mar, [facility] [address] [id number] [place] [address] 65[address] Mar, [facility] [address] [id number] [place] [address] Feb, [facility] [address] [id number] [place] [address] Feb, [facility] [address] [id number] [place] [address] Feb, [facility] [address] [id number] [place] [address]- [address]97 Feb, [facility] [address] [id number] [place] [address]- [address] Feb, [facility] [address] [id number] [place] [address]- 16[address] Feb, [facility] [facility] [address] [id number] [place] [address] Feb, [facility] [place] [facility] [address] [id number] [place] [address] 8470 Feb, [facility] [place] [facility] [address] [id number] [place] [address] 4380 Feb, [facility] [place] [facility] [address] [id number] [place] [address] 1426 Feb, [facility] [place] [facility] [address] [id number] [place] [address] 3968 30 Jan, 2013 [facility] [place] [facility] [address] [id number] [place] [address]- 8085 26 Jan, 2013 [facility] [place] [facility] [address] [id number] [place] [address] 5835 24 Jan, 2013 [facility] [place] [facility] [address] [id number] [place] [address]- 0093 23 Jan, 2013 [facility] [place] [facility] [address] [id number] [place] [address] Jan, [facility] [place] [facility] [address] [id number] [place] [address] 2210 Dec, [facility] [place] [facility] [address] [id number] [place] [address] 7001 Dec, [facility] [place] [facility] [address] [id number] [place] [address] 1916 Dec, [facility] [place] [facility] [address] [id number] [place] [address]- 5863 Dec, [facility] [place] [facility] [address] [id number] [place] [address] 6903 Dec, [facility] [place] [facility] [address] [id number] [place] [address]- 4914 Dec, [facility] [place] [facility] [address] [id number] [place] [address] 4458 Dec, [facility] [place] [facility] [address] [id number] [place] [address]- 4049 Nov, [facility] [place] [facility] [address] [id number], [place] [address] Nov, [facility] [place] [facility] [address] [id number] [place] [address]- 3842 Nov, [facility] [place] [facility] [address] [id number] [place] [address] 1699 Nov, [facility] [place] [facility] [address] [id number] [place] [address]- 3462 Nov, [facility] [place] [facility] [address] [id number] [place] [address] 2939 18 Oct, 2012 [facility] [address] [id number] [place] [address]- 5935 14 Oct, 2012 [facility] [place] [address] [id number] [place] [address]- 0701 06 Oct, 2012 [facility] [address] [id number] [place] [address]- 3346 September, [facility] [place] [address] [id number] [place] [address]- 1213 September, [facility] [place] [address] [id number] [place] [address]- 4462 September, [facility] [address] [id number] [place] [address] 2970 September, [facility] [address] [id number] [place] [address] 8856 September, [facility] [address] [id number] [place] [address]- 9358 September, [facility] [place] [address] [id number] [place] [address]- 1323 September, [facility] [address] [id number] [place] [address]- 2875 Aug, [facility] [address] [id number] [place] [address]- 5346 Aug, [facility] [place] [facility] [address] [id number] [place] [address]- 7558 Aug, [facility] [place] [facility] [address] [id number] [place] [address]- 7667 29 Jul, 2012 [facility] [place] [facility] [address] [id number] [place] [address]- 5515 Jul, [facility] [address] [id number] [place] [address]- 3265 Jul, [facility] [place] [facility] [address] [id number] [place] [address]- 0175 20 Jul, 2012 [facility] [place] [facility] [address] [id number] [place] [address]- 4328 18 Jul, 2012 [facility] [place] [facility] [address] [id number] [place] [address]- 7790 18 Jul, 2012 [facility] [place] [facility] [address] [id number] [place] [address]- 2929 Jul, [facility] [place] [address] [id number] [place] [address]- 6594 28 Jun, 2012 [facility] [place] [facility] [address] [id number] [place] [address] 1915 Jun, [facility] [place] [address] [id number] [place] [address]- 6857 Jun, [facility] [place] [facility] [address] [id number] [place] [address]- 9368 Jun, [facility] [place] [facility] [address] [id number] [place] [address]- 9027 15 Jun, 2012 [facility] [place] [facility] [address] [id number] [place] [address]- 7372 Jun, [facility] [place] [facility] [address] [id number] [place] [address]- 2803 Jun, [facility] [place] [facility] [address] [id number] [place] [address]- 2540 Jun, [facility] [place] [facility] [address] [id number] [place] [address]- 5462 Jun, [facility] [place] [facility] [address] [id number] [place] [address]- 4571 Jun, [facility] [place] [facility] [address] [id number] [place] [address]- 7633 May, [facility] [place] [facility] [address] [id number] [place] [address]- 5479 22 May, 2012 [facility] [address] [id number] [place] [address]- 5526 17 May, 2012 [facility] [address] [id number] [place] [address]- 8566 17 May, 2012 [facility] [address] [id number] [place] [address]- 1714 15 May, 2012 [facility] [address] [id number] [place] [address]- 7261 07 May, 2012 [facility] [address] [id number] [place] [address] 31 Apr, 2012 [facility] [address] [id number] [place] [address]- 6963 31 Apr, 2012 [facility] [address] [id number] [place] [address]- 0185 Apr, [facility] [address] [id number] [place] [address]- 5375 28 Apr, 2012 [facility] [address] [id number] [place] [address]- 3660 26 Apr, 2012 [facility] [address] [id number] [place] [address]- 5861 20 Apr, 2012 [facility] [address] [id number] [place] [address] 2546 Apr, [facility] [address] [id number] [place] [address]- 2541 29 Mar, 2012 [facility] [address] [id number] [place] [address]- 7159 29 Mar, 2012 [facility] [address] [id number] [place] [address]- 0925 27 Mar, 2012 [facility] [address] [id number] [place] [address]- 8473 Mar, [facility] [place] [facility] [address] [id number] [place] [address]- 9474 Mar, [facility] [place] [facility] [address] [id number] [place] [address]- 2141 Mar, [facility] [place] [facility] [address] [id number] [place] [address]- 1988 Mar, [facility] [place] [facility] [address] [id number] [place] [address]- 9498 Mar, [facility] [place] [facility] [address] [id number] [place] [address]- 9543 Mar, [facility] [place] [facility] [address] [id number] [place] [address]- 2714 Mar, [facility] [place] [facility] [address] [facility] [id number] [place] [address]- 3599 Mar, [facility] [place] [facility] [address] [id number], [place] [address]- 8994 Mar, [facility] [place] [facility] [address] [facility] [id number], [place] [address]- 6597 Mar, [facility] [place] [facility] [address] [facility] [id number], [place] [address]- 5106 Mar, [facility] [place] [facility] [address] [facility] [id number], [place] [address]- 2531 Mar, [facility] [place] [facility] [address] [id number], [place] [address]- 9883 Mar, [facility] [place] [facility] [address] [id number], [place] [address]- 3503 Mar, [facility] [place] [facility] [address] [id number], [place] [address]- 2088 Feb, [facility] [place] [facility] [address] [facility] [id number], [place] [address]- 4119 Feb, [facility] [place] [facility] [address] [id number], [place] [address]- 2111 17 Feb, 2012 [facility] [place] [facility] [address] [id number] [place] [address]- 4935 17 Feb, 2012 [facility] [place] [facility] [address] [id number] [place] [address]- 3276 16 Feb, 2012 [facility] [place] [facility] [address] [id number] [place] [address]- 6286 16 Feb, 2012 [facility] [place] [facility] [address] [id number] [place] [address]- 3430 Feb, [facility] [place] [facility] [address] [id number] [place] [address]- 7952 Feb, [facility] [place] [facility] [address] [id number] [place] [address]- 1843 05 Feb, 2012 [facility] [place] [facility] [address] [facility] [id number] [place] [address]- 9769 04 Feb, 2012 [facility] [place] [facility] [address] [id number] [place] [address]- 7022 02 Feb, 2012 [facility] [place] [facility] [address] [facility] [id number] [place] [address]- 5371 27 Jan, 2012 [facility] [place] [facility] [address] [facility] [id number] [place] [address]- 5582 25 Jan, 2012 [facility] [place] [facility] [address] [id number] [place] [address]- 8547 13 Jan, 2012 [facility] [place] [facility] [address] [id number] [place] [address]- 0980 12 Jan, 2012 [facility] [place] [facility] [address] [id number] [place] [address]- 1424 07 Jan, 2012 [facility] [place] [facility] [address] [facility] [id number] [place] [address]- 1641 31 Dec, 2011 [facility] [place] [facility] [address] [facility] [id number] [place] [address]- 1647 24 Dec, 2011 [facility] [place] [facility] [address] [id number] [place] [address]- 8068 Dec, [facility] [place] [facility] [address] [id number] [place] [address]- 6706 Dec, [facility] [place] [facility] [address] [id number] [place] [address] 2546 Dec, [facility] [place] [facility] [address] [id number] [place] [address]- 0893 Dec, [facility] [place] [facility] [address] [id number] [place] [address]- 3531 Dec, [facility] [place] [facility] [address] [id number] [place] [address]- 2377 Dec, [facility] [place] [facility] [address] [id number] [place] [address]- 5534 Nov, [facility] [place] [facility] [address] [id number] [place] [address]- 9729 Nov, [facility] [place] [facility] [address] [id number] [place] [address]- 9027 Nov, [facility] [place] [facility] [address] [id number] [place] [address]- 9915 Nov, [facility] [place] [facility] [address] [id number] [place] [address]- 0321 Nov, [facility] [place] [facility] [address] [id number] [place] [address]- 7764 Oct, [facility] [place] [facility] [address] [id number] [place] [address]- 4789 Oct, [facility] [place] [facility] [address] [id number] [place] [address]- 5148 September, [facility] [place] [facility] [address] [id number] [place] [address]- 1186 September, [facility] [place] [facility] [address] [id number] [place] [address]- 1654 September, [facility] [address] [id number] [place] [address]- 2769 September, [facility] [place] [facility] [address] [id number] [place] [address]- 9304 September, [facility] [place] [facility] [address] [id number] [place] [address]- 6343 September, [facility] [place] [facility] [address] [id number] [place] [address]- 8864 September, [facility] [place] [facility] [address] [id number] [place] [address]- 9671 September, [facility] [place] [facility] [address] [id number] [place] [address]- 6975 September, [facility] [place] [facility] [address] [id number] [place] [address]- 8220 September, [facility] [place] [facility] [address] [id number] [place] [address]- 4535 September, [facility] [place] [facility] [address] [id number] [place] [address]- 5472 September, [facility] [place] [facility] [address] [id number] [place] [address]- 3693 September, [facility] [place] [facility] [address] [id number] [place] [address]- 6120 September, [facility] [place] [facility] [address] [id number] [place] [address]- 8250 24 Aug, 2011 [facility] [place] [facility] [address] [id number] [place] [address]- 6391 Aug, [facility] [place] [facility] [address] [id number] [place] [address]- 4819 13 Aug, 2011 [facility] [place] [facility] [address] [id number] [place] [address]- 7141 Aug, [facility] [place] [facility] [address] [id number] [place] [address]- 3475 23 Jul, 2011 [facility] [address] [id number] [place] [address]- 7056 13 Jul, 2011 [facility] [address] [id number] [place] [address] 2546 13 Jul, 2011 [facility] [place] [facility] [address] [facility] [id number] [place] [address] 2546 28 Jun, [address] [facility] [address] [id number] [id number] 26 Jun, 2011 [facility] [address] [id number] [place] [address]- 2496 13 Jun, 2011 [facility] [address] [id number] [place] [address]- 3806 10 Jun, 2011 [facility] [address] [id number] [place] [address] 2546 07 Jun, 2011 [facility] [address] [id number] [place] [address] 2542 07 Jun, 2011 [facility] [address] [id number] [place] [address]- 0606 03 Jun, 2011 [facility] [address] [id number] [place] [address]- 9056 02 Jun, 2011 [facility] [address] [id number] [place] [address] 2546 May, [facility] [address] [id number] [place] [address] 2549 May, [facility] [place] [facility] [address] [id number] [place] [address] 2540 May, [facility] [place] [facility] [address] [id number] [place] [address] 2546 May, [facility] [place] [facility] [address] [id number] [place] [address]- 4472 May, [facility] [place] [facility] [address] [id number] [place] [address]- 8815 May, [facility] [address] [id number] [place] [address]- 0596 May, [facility] [place] [facility] [address] [id number] [place] [address] 2546 May, [facility] [place] [facility] [address] [id number] [place] [address] 254 May, [facility] [address] [id number] [place] [address]- 7240 May, [facility] [address] [id number] [place] [address]- 9316 May, [facility] [address] [id number] [place] [address]- 7230 May, [facility] [address] [id number] [place] [address]- 0018 May, [facility] [address] [id number] [place] [address]- 0741 May, [facility] [address] [id number] [place] [address]- 9869 Apr, [facility] [place] [facility] [address] [id number] [place] [address]- 2546 16 Apr, 2011 [facility] [place] [facility] [address] [id number], [place] [address]- 2546 05 Apr, 2011 [facility] [place] [facility] [address] [id number] [place] [address]- 8071 Mar, [facility] [place] [facility] [address] [id number] [place] [address]- 2546 Mar, [facility] [place] [facility] [address] [id number] [place] [address]- 2546 Feb, [facility] [place] [facility] [address] [id number], [place] [address]- 7004 26 Feb, 2011 [facility] [place] [facility] [address] [id number] [place] [address]- 4106 21 Feb, 2011 [facility] [place] [facility] [address] [id number] [place] [address] 2546 20 Feb, 2011 [facility] [place] [facility] [address] [id number] [place] [address]- 7846 13 Feb, 2011 [facility] [place] [facility] [address] [id number] [place] [address]- 5994 28 Apr, 2010 [facility] [place] [facility] [address] [id number] [place] [address]- 1546 22 Apr, 2010 [facility] [place] [facility] [address] [id number] [place] [address]- 4016 16 Apr, 2010 [facility] [place] [facility] [address] [id number] [place] [address]- 0704 15 Apr, 2010 [facility] [place] [facility] [address] [id number] [place] [address]- 8349 15 Apr, 2010 [facility] [place] [facility] [address] [id number] [place] [address]- 0903 Apr, [facility] [place] [facility] [address] [id number] [place] [address]- 6111 24 Mar, 2010 [facility] [place] [facility] [address] [id number] [place] [address] 2546 17 Mar, 2010 [facility] [place] [facility] [address] [id number] [place] [address] 2545 17 Mar, 2010 [facility] [place] [facility] [address] [id number] [place] [address]- 4872 28 Feb, 2010 [facility] [place] [facility] [address] [id number] [place] [address]- 0528 22 Feb, 2010 [facility] [place] [facility] [address] [id number] [place] [address]- 6629 Feb, [facility] [place] [facility] [address] [id number] [place] [address] 6866 15 Feb, 2010 [facility] [address] [id number] [address] 8045 Dec, [facility] [address] [id number], [place] [address] 7706 Dec, [facility] [address] [id number] [address] Oct, [facility] [id number] [address] Mar, [facility] [id number] [address] Mar, [facility] [id number] [address] September, IMMUNIZATIONS No Known Immunizations SOCIAL HISTORY Never Assessed REASON FOR VISIT Requests return call PLAN OF CARE VITAL SIGNS MEDICATIONS Medication Instructions Dosage Frequency Start Date End Date Duration Status Fluticasone Propionate 50 MCG/ACT Nasally twice a day 1 spray in each nostril 12h Feb, 30 day(s) Active RESULTS No Results PROCEDURES No Known [...]
--- OUTSIDE RECORDS SUMMARY | 2017-12-20 13:03 | XMS REPORT ---
Author Author VALERIE ZAVALA [facility] Address [address] [place] [address] Care Team Providers Care Chief Nursing Executive Name Role Phone VALERIE ZAVALA Unavailable PROBLEMS Type Condition ICD9-CM Code JJM88-FD Code Onset Dates Condition Status SNOMED Code Problem Generalized anxiety disorder F41.1 Active 04979696 Problem Hypokalemia E87.6 Active 794364295 Problem Right low back pain, with sciatica presence unspecified M54.5 Active 465523241 Problem Post-traumatic stress disorder, chronic F43.12 Active 16358578 Problem Pain in right knee M25.561 Active 79323328 Problem Gastroesophageal reflux disease without esophagitis K21.9 Active 816267174 Problem UTI symptoms R39.9 Active 43240810 Problem Essential hypertension I10 Active 45868970 Problem Anxiety F41.9 Active 67659283 Problem Neuropathy G62.9 Active 308606144 Problem Other chronic pain G89.29 Active 46057673 Problem Generalized abdominal pain R10.84 Active 869190580 Problem Chronic pain G89.29 Active 04421057 Problem Back pain M54.9 Active 301254282 Problem Right foot pain M79.671 Active 07354893 Problem Panic attacks F41.0 Active 441141903 Problem Other emphysema J43.8 Active 26458141 Problem Kidney stones N20.0 Active 39640117 Problem Renal calculus, right N20.0 Active 02260621 Problem Weight decrease R63.4 Active 405645065 Problem Tobacco abuse Z72.0 Active 33287209 Problem Bone pain M89.8X9 Active 96941520 Problem Depression, unspecified depression type F32.9 Active 76513269 Problem Insomnia, unspecified type G47.00 Active 784219260 Problem Pulmonary emphysema, unspecified emphysema type J43.9 Active 38958022 Problem Right upper quadrant abdominal pain R10.11 Active 288031822 Problem Weight loss R63.4 Active 951275583 ALLERGIES No Information ENCOUNTERS Encounter Location Date Diagnosis [facility] [place] [address] [address] Nov, [facility] [place] [id number] [place] [address] 24810- 7475 16 Nov, 2017 Pelvic pain R10.2 ; Acute pyelonephritis N10 and Essential hypertension I10 [facility] [place] [id number] [place] [address] 87987- 8732 28 Oct, 2017 Medicare welcome exam Z00.00 [facility] [place] [id number] [place] [address] 32291- 5218 18 Oct, 2017 Gross hematuria R31.0 ; Urinary tract infection without hematuria, site unspecified N39.0 and Weakness R53.1 [facility] [place] [id number] [address] 13 Oct, 2017 [facility] [place] [id number] [place] [address] 10701- 1193 Oct, [facility] [place] [id number] [place] [address] 11540- 6312 Oct, Medicare welcome exam Z00.00 [facility] [place] [id number] [address] September, Back pain M54.9 and Right anterior knee pain M25.561 [facility] [place] [id number] [address] 0603 September, [facility] [place] [address] [address]24 September, [facility] [place] [id number] [address] 9533 September, Essential hypertension I10 [facility] [place] [address] [address] September, [facility] [place] [id number] [place] [address] 97155- 1279 September, RLQ abdominal pain R10.31 ; Low back pain M54.5 and Other chronic pain G89.29 [facility] [place] [id number] [place] [address] 56450- 3744 Aug, Medicare welcome exam Z00.00 [facility] [place] [id number] [place] [address] 78464- 2760 Aug, [facility] [place] [address] 35726- 9093 Aug, Acute pyelonephritis N10 and Medicare welcome exam Z00.00 [facility] [id number] [place] [address] 13792 -1050 Aug, Dysuria R30.0 and Acute pyelonephritis N10 [facility] [place] [id number] [place] [address] 84965- 2397 Aug, [facility] [place] [address] 25086- 8303 Aug, [facility] [place] [id number] [place] [address] 34128- 4522 Aug, [facility] [place] [id number] [place] [address] 86855- 9390 Aug, [facility] [place] [id number] [place] [address] 35943- 3518 Jul, [facility] [place] [id number] [place] [address] 95235- 8397 Jul, Renal calculus, right N20.0 and Medicare welcome exam Z00.00 [facility] [id number] [place] [address] 24734 -2417 Jul, Dysuria R30.0 and Renal calculus, right N20.0 [facility] [place] [id number] [place] [address] 63258- 7790 Jul, Medicare welcome exam Z00.00 [place] [address] [address] 3901 13 Jun, 2017 Gastroesophageal reflux disease without esophagitis K21.9 and Generalized abdominal pain R10.84 [place] [id number] [place] [address] 45707- 8454 09 Jun, 2017 Medicare welcome exam Z00.00 [place] [id number] [place] [address] 23435- 1269 05 Jun, 2017 [place] [id number] [place] [address] 35529- 6206 05 Jun, 2017 Medicare welcome exam Z00.00 and Encounter for screening mammogram for malignant neoplasm of breast Z12.31 [place] [id number] [place] [address] 75690- 4448 02 Jun, 2017 Chronic pain G89.29 [place] [id number] [place] [address] 86945- 7144 24 May, 2017 [place] [id number] [place] [address] 42481- 8937 May, Pelvic pain R10.2 [place] [id number] [place] [address] 42227- 4710 May, Pelvic pain R10.2 [facility] [place] [id number] [place] [address] 35559 -7451 May, Renal calculus, right N20.0 [place] [id number] [place] [address] 24621- 1673 May, Hematuria, unspecified type R31.9 and Nephrolithiasis N20.0 [facility] [place] [id number] [place] [address] 73599 -7838 May, Dysuria R30.0 and Nephrolithiasis N20.0 [place] [id number] [place] [address] 75463- 4070 May, [facility] [address] [address] May, Abdominal pain R10.9 and Kidney stone N20.0 [facility] [place] [id number] [place] [address] 14300- 9202 May, [facility] [place] [id number] [place] [address] 04308- 3934 May, Chronic pain G89.29 and Panic attacks F41.0 [facility] [place] [id number] [place] [address] 08240- 7965 May, Urinary tract infection without hematuria, site unspecified N39.0 [facility] [place] [id number] [place] [address] 63469- 5789 Apr, Right lower quadrant abdominal pain R10.31 and Abnormal serum lipase level R74.8 [place] [id number] [place] [address] 90977- 5649 Apr, Recurrent urinary tract infection N39.0 [facility] [place] [id number] [place] [address] 20870- 8817 Apr, UTI symptoms R39.9 ; Recurrent urinary tract infection N39.0 and Pelvic pain R10.2 [facility] [place] [id number] [place] [address] 79748- 8631 Apr, Chronic pain G89.29 and Panic attacks F41.0 [facility] [place] [id number] [place] [address] 56921- 6727 Apr, Dysuria R30.0 [facility] [place] [id number] [place] [address] 33104- 9244 Apr, [place] [id number] [place] [address] 74911- 0309 Apr, Dysuria R30.0 and Urinary tract infection without hematuria , site unspecified N39.0 [facility] [place] [id number] [place] [address] 68616- 3356 Mar, UTI symptoms R39.9 [facility] [place] [id number] [place] [address] 69008- 2437 Mar, [place] [id number] [place] [address] 01236- 2956 Mar, Panic attacks F41.0 and Chronic pain G89.29 [place] [address] 20644- 0270 Mar, [place] [id number] [place] [address] 18432- 0873 Mar, Dysuria R30.0 [place] [address] 83468- 3740 Mar, Dysuria R30.0 [place] [address] 94347- 1005 Feb, Chronic pain G89.29 ; Shortness of breath R06.02 ; Weight loss R63.4 ; Encounter for immunization Z23 ; Bone pain M89.8X9 ; Right anterior knee pain M25.561 and Cough R05 [place] [address] 90084- 2768 Feb, Shortness of breath R06.02 [place] [id number] [place] [address] 57726- 5632 Feb, [place] [id number] [place] [address] 50893- 6992 Feb, Panic attacks F41.0 and Chronic pain G89.29 [place] [id number] [place] [address] 05694- 5423 Feb, [place] [address] 52010- 2917 Feb, Panic attacks F41.0 ; Shortness of breath R06.02 and Encounter for immunization Z23 [place] [address] 76840- 8565 Jan, [facility] [place] [id number] [place] [address] 88466- 9295 Jan, Anxiety F41.9 and Chronic pain G89.29 [facility] [place] [id number] [place] [address] 24119- 0043 Dec, Anxiety F41.9 and Chronic pain G89.29 [facility] [place] [address] 55497- 9017 Nov, Chronic pain G89.29 [facility] [place] [id number] [place] [address] 71394- 7182 Nov, Anxiety F41.9 [place] [id number] [place] [address] 68856- 4464 Nov, Chronic pain G89.29 ; Essential hypertension I10 and Other emphysema J43.8 [place] [id number] [place] [address] 40263- 8199 Oct, Anxiety F41.9 [facility] [place] [id number] [place] [address] 82832- 3116 Oct, [place] [id number] [place] [address] 21586- 2372 Oct, Chronic pain G89.29 [facility] [place] [id number] [place] [address] 68659- 2741 September, Recurrent UTI N39.0 ; Neuropathy G62.9 and Anxiety F41.9 [facility] [place] [id number] [place] [address] 02173- 6065 September, [facility] [place] [id number] [place] [address] 39065- 0505 September, Chronic pain G89.29 [facility] [place] [id number] [place] [address] 07955- 1373 September, [facility] [place] [id number] [address]- 0846 Aug, Post-traumatic stress disorder, chronic F43.12 ; Chronic urinary tract infection N39.0 ; Gastroesophageal reflux disease without esophagitis K21.9 ; Chronic pain G89.29 ; Essential hypertension I10 and Tobacco abuse Z72.0 [facility] [address] [address]6 Aug, [facility] [place] [id number] [place] [address] 79230 2546 Aug, Chronic pain G89.29 [facility] [place] [id number] [place] [address] 86359- 5456 Aug, Insomnia, unspecified type G47.00 [facility] [place] [address] [address]- 9956 Aug, [facility] [place] [id number] [place] [address] 59024- 1575 Jul, Chronic pain G89.29 [facility] [place] [address] [address]- 1801 Jul, [facility] [place] [id number] [address]- 4699 Jul, [facility] [place] [address] [address]- 3172 Jul, [facility] [place] [address] [address]- 254 15 Jul, 2016 Recurrent UTI (urinary tract infection) N39.0 [facility] [place] [address] [address]- 2546 14 Jul, 2016 [facility] [place] [address] [address]- 2546 Jun, Chronic pain G89.29 [facility] [place] [address] [address]- 2546 Jun, [facility] [place] [id number] [place] [address] 67087- 2688 Jun, [facility] [place] [address] 31637- 6726 May, Chronic pain G89.29 [place] [id number] [place] [address] 99159- 8362 May, Weight loss R63.4 and Shortness of breath R06.02 [facility] [place] [address] 41340- 5186 May, Chronic pain G89.29 ; Weight loss R63.4 and Tobacco abuse Z72.0 [place] [address] 35230- 6879 May, [place] [id number] [place] [address] 30672- 4066 May, Hypoxia R09.02 [facility] [place] [address] 40305- 1405 May, [facility] [place] [id number] [place] [address] 95984- 4048 May, Pulmonary emphysema, unspecified emphysema type J43.9 [facility] [id number] [place] [address] 98408 -7632 May, [facility] [place] [id number] [place] [address] 66024- 4690 May, [facility] [place] [id number] [place] [address] 41072- 1308 May, [facility] [place] [id number] [place] [address] 41961- 5796 May, Chronic pain G89.29 ; Encounter for immunization Z23 ; Right anterior knee pain M25.561 and Cough R05 [facility] [place] [id number] [place] [address] 40878- 3178 Apr, Chronic pain G89.29 [place] [id number] [place] [address] 98715- 1175 Apr, [facility] [place] [id number] [place] [address] 30948- 9094 Apr, Generalized anxiety disorder F41.1 and Depression, unspecified depression type F32.9 [facility] [place] [id number] [place] [address] 51167- 4069 Apr, Chronic pain G89.29 ; Hypokalemia E87.6 and Insomnia, unspecified type G47.00 [facility] [place] [id number] [place] [address] 90606- 9211 Apr, [facility] [place] [id number] [place] [address] 58944- 6420 Apr, Chronic pain G89.29 [facility] [place] [id number] [place] [address] 61937- 5774 Apr, [facility] [place] [id number] [place] [address] 17173- 6037 Mar, [facility] [place] [id number] [place] [address] 67549- 7586 Mar, Insomnia, unspecified type G47.00 [facility] [place] [id number] [place] [address] 32124- 6815 Mar, Chronic pain G89.29 [facility] [place] [id number] [place] [address] 71675- 2287 Mar, [facility] [place] [id number] [place] [address] 26969- 0625 Feb, [facility] [place] [id number] [place] [address] 08159- 2186 Feb, [facility] [place] [id number] [place] [address] 34308- 8610 Feb, [facility] [place] [id number] [place] [address] 87032- 0325 Feb, [facility] [place] [address] [address]- 7318 Feb, [facility] [place] [id number] [place] [address] 43073- 6704 Jan, [facility] [place] [id number] [place] [address] 82424- 5316 Jan, [facility] [place] [id number] [place] [address] 68389- 6829 Jan, [facility] [place] [id number] [place] [address] 73068- 7904 13 Jan, 2016 [facility] [place] [id number] [place] [address] 94538- 8440 Jan, [facility] [place], [facility] [id number] [place] [address] [phone] Jan, Chronic pain G89.29 [facility] [place], [facility] [id number] [place] [address] [phone] Jan, Chronic pain G89.29 and Fibromyalgia M79.7 [facility] [place], [facility] [id number] [place] [address] [phone] Dec, Depression, unspecified depression type F32.9 and Generalized anxiety disorder 300.02 [facility] [place], [facility] [id number] [place] [address] [phone] Dec, Dysthymia F34.1 ; Insomnia, unspecified type G47.00 and Chronic pain G89.29 [facility] [place], [facility] [id number] [address] Dec, Chronic pain G89.29 [facility] [place], [facility] [id number] [place] [address] [phone] Dec, Insomnia, unspecified type G47.00 [facility] [place], [facility] [id number] [place] [address] [phone] Dec, Fibromyalgia M79.7 and Chronic pain G89.29 [facility] [place], [facility] [address] [facility] [id number] [address] Dec, [facility] [place], [facility] [address] [facility] [id number] [place] [address] [phone] Dec, [facility] [place], [facility] [address] [facility] [id number] [place] [address] [phone] Dec, [facility] [place], [facility] [address] [facility] [id number] [place] [address] [phone] Dec, [facility] [place], [facility] [address] [facility] [id number] [place] [address] [phone] Dec, Chronic pain G89.29 [facility] [place], [facility] [id number] [place] [address] 74469- 7309 Dec, [facility] [place] [id number] [place] [address] 27026- 4761 Dec, [facility] [place] [address] [facility] [id number] [place] [address] 15676- 4380 Dec, [facility] [place] [id number] [place] [address] 63402- 0916 Dec, Chronic pain G89.29 and Dysthymia F34.1 [facility] [place] [id number] [place] [address] 52780- 0439 Nov, [facility] [place] [id number] [place] [address] 65224- 5562 Nov, Hypokalemia E87.6 and Chronic pain G89.29 [facility] [place] [address] [facility] [id number] [place] [address] 80499- 8355 Nov, Back pain M54.9 and Pain in right knee M25.561 [facility] [place] [address] [facility] [id number] [place] [address] 8859 Nov, [facility] [place] [id number] [place] [address] 48823- 2629 Nov, Chronic pain G89.29 [facility] [place] [id number] [place] [address] 30181 2546 Nov, Chronic pain G89.29 ; Weight loss R63.4 ; Bone pain M89.8X9 and Insomnia, unspecified type G47.00 [facility] [place] [id number] [place] [address] 11364- 7346 Nov, Chronic pain G89.29 [facility] [place] [id number] [place] [address] 96238 2546 Nov, Chronic pain G89.29 [facility] [place] [id number] [place] [address] 14127 2546 Oct, Chronic pain G89.29 [facility] [place] [id number] [place] [address] 82804- 3266 Oct, UTI symptoms R39.9 [facility] [place] [id number] [place] [address] 12227 2544 Oct, Chronic pain G89.29 [facility] [place] [id number] [place] [address] 46970- 7915 Oct, Chronic pain G89.29 [facility] [place] [id number] [place] [address] 03288 2546 Oct, Chronic pain G89.29 [facility] [place] [id number] [place] [address] 61191 2546 Oct, Right upper quadrant abdominal pain R10.11 [facility] [place] [id number] [place] [address] 15774 2546 Oct, Chronic pain G89.29 [facility] [place] [id number] [place] [address] 56909 2546 Oct, [facility] [place] [id number] [place] [address] 91053- 6493 September, Chronic pain G89.29 [facility] [place] [address] [address] 1443 September, Dysuria R30.0 and Urinary tract infection without hematuria , site unspecified N39.0 [facility] [place] [address] [address]- 4367 September, [facility] [place] [address] [address]- 8632 September, Dysuria R30.0 [facility] [place] [id number] [place] [address] 34155- 2862 September, Chronic pain G89.29 [facility] [place] [id number] [place] [address] 20323- 4094 September, Chronic pain G89.29 and Essential hypertension I10 [facility] [place] [id number] [place] [address] 98210- 0279 September, [facility] [place] [id number] [place] [address] 60662- 3034 September, [facility] [place] [id number] [place] [address] 65473- 1047 September, [facility] [place] [id number] [place] [address] 21640- 1220 Aug, UTI symptoms R39.9 [facility] [place] [address] [address]- 1173 Aug, Dysuria R30.0 [facility] [place] [address] [address]- 5433 Aug, [facility] [place] [address] [address]- 5617 Aug, [facility] [place] [address] [address]- 1568 Aug, [facility] [place] [address] [address]- 0911 Aug, Chronic pain G89.29 [facility] [place] [address] [address]- 2110 Aug, Dysthymia F34.1 [facility] [place] [id number] [place] [address] 91369- 9996 Aug, Conjunctivitis, unspecified conjunctivitis type, unspecified laterality H10.9 [facility] [place] [id number] [place] [address] 87170- 3445 31 Jul, 2015 Chronic pain G89.29 ; Back pain M54.9 ; Tobacco abuse Z72.0 and Weight decrease R63.4 [facility] [place] [id number] [place] [address] 01242- 8936 30 Jul, 2015 [facility] [place] [id number] [place] [address] 86739- 6236 30 Jul, 2015 [facility] [place] [id number] [place] [address] 09784- 4650 24 Jul, 2015 Chronic pain G89.29 [facility] [place] [id number] [place] [address] 61006- 7836 22 Jul, 2015 [facility] [place] [id number] [place] [address] 54518 2547 21 Jul, 2015 [facility] [place] [id number] [place] [address] 21922- 6847 18 Jul, 2015 [facility] [place] [id number] [place] [address] 89673 2544 17 Jul, 2015 [facility] [place] [id number] [place] [address] 71000 2540 17 Jul, 2015 Chronic pain G89.29 [facility] [place] [id number] [place] [address] 58968 2546 16 Jul, 2015 Chronic pain G89.29 [facility] [place] [id number] [place] [address] 01419- 9345 15 Jul, 2015 [facility] [place] [id number] [place] [address] 17555- 7836 Jul, [facility] [place] [id number] [place] [address] 17036- 6489 Jul, [facility] [place] [id number] [place] [address] 69121- 3135 Jul, [facility] [place] [address] 37612- 6047 Jun, [facility] [place] [address] 73250- 0265 Jun, Depression, unspecified depression type F32.9 [address] 96338- 8162 Jun, Pain in right knee M25.561 [address] 49949- 1213 Jun, Chronic pain G89.29 ; Back pain M54.9 ; Bone pain M89.8X9 and Weight loss R63.4 [facility] [place] [id number] [place] [address] 90841- 8740 Jun, [facility] [place] [id number] [place] [address] 81557- 8574 May, [facility] [place] [id number] [place] [address] 25743- 3710 May, UTI symptoms R39.9 ; Pain in right knee M25.561 ; Right low back pain, with sciatica presence unspecified M54.5 ; Right foot pain M79.671 ; Hypokalemia E87.6 and Screening, lipid Z13.220 [facility] [place] [id number] [place] [address] 74032- 1016 May, [facility] [place] [id number] [place] [address] 23447- 1671 May, [facility] [place] [address] 80909- 3315 Mar, [facility] [place] [id number] [place] [address] 70542- 0696 Mar, [facility] [place] [id number] [place] [address] 94488- 2126 Mar, Hypokalemia E87.6 [facility] [place] [id number] [place] [address] 33011- 8436 Mar, Pain in right leg M79.604 ; Encounter for immunization Z23 ; Pain in right knee M25.561 and Hypokalemia E87.6 [facility] [place] [id number] [place] [address] 16316- 4806 Jan, [facility] [place] [id number] [place] [address] 54243- 0486 Jan, [facility] [place] [id number] [place] [address] 87685- 0296 Jan, Abdominal pain, generalized 789.07 [facility] [place] [id number] [place] [address] 00753- 2262 Jan, Abdominal pain, generalized 789.07 [facility] [place] [id number] [place] [address] 38620- 7660 Dec, [facility] [place] [id number] [place] [address] 09415- 3098 Dec, [facility] [place] [id number] [place] [address] 54677- 5147 Dec, [facility] [place] [id number] [place] [address] 78847- 8130 Nov, Hallux valgus 735.0 and Hammertoe 735.4 [facility] [place] [id number] [place] [address] 99706- 5026 Nov, [facility] [place] [id number] [place] [address] 51388- 1123 Nov, Hallux valgus 735.0 and Hammer toe 735.4 [facility] [place] [address] [address]- 2316 Oct, [facility] [place] [address] 5115 Oct, [facility] [place] [address] [address]- 7419 Oct, Pre-op evaluation V72.84 [facility] [place] [address] [address]- 6619 Oct, [facility] [place] [id number] [place] [address] 559490- 8055 Oct, [facility] [place] [address] [address]- 8684 September, [facility] [place] [id number] [place] [address] 61708- 9571 September, [facility] [place] [address] [address]- 8820 September, Hallux valgus (acquired) 735.0 and Other hammer toe ( acquired) 735.4 [facility] [place] [address] [address]- 4020 Aug, [facility] [place] [address] [address]- 0031 Aug, [facility] [place] [address] [address]- 7130 Jul, [facility] [place] [address] [address]- 4853 Jul, [facility] [place] [address] 1155 Jul, [facility] [place] [address] 2717 Jul, [facility] [place] [facility] [address] [id number] [place] [address]- 5822 Jul, [facility] [place] [facility] [address] [id number] [place] [address]- 6478 Jul, [facility] [place] [facility] [address] [id number] [place] [address]- 2916 Jul, [facility] [place] [facility] [address] [id number] [place] [address]- 5669 Jul, [facility] [place] [facility] [address] [id number] [place] [address]- 6649 Jun, 2014 [facility] [place] [facility] [address] [id number] [place] [address]- 6759 Jun, 2014 [facility] [place] [facility] [address] [id number] [place] [address]- 0848 Jun, 2014 [facility] [place] [facility] [address] [id number] [place] [address]- 3087 Jun, 2014 [facility] [place] [facility] [address] [id number] [place] [address]- 7116 Jun, [facility] [place] [facility] [address] [id number] [place] [address]- 7168 Jun, [facility] [place] [facility] [address] [id number] [place] [address]- 2071 Jun, 2014 [facility] [place] [facility] [address] [id number] [place] [address]- 5336 Jun, 2014 [facility] [place] [facility] [address] [id number] [place] [address]- 4442 Jun, [facility] [place] [facility] [address] [id number] [place] [address]- 7503 Jun, [facility] [place] [facility] [address] [id number] [place] [address]- 1338 May, [facility] [place] [facility] [address] [id number] [place] [address]- 8974 May, [facility] [address] [id number] [place] [address]- 2206 May, [facility] [place] [facility] [address] [id number] [place] [address]- 8837 May, [facility] [place] [facility] [address] [id number] [place] [address]- 1502 May, [facility] [place] [facility] [address] [id number] [place] [address]- 5313 May, [facility] [place] [facility] [address] [id number] [place] [address]- 5312 May, [facility] [place] [facility] [address] [id number] [place] [address]- 2049 May, [facility] [place] [facility] [address] [id number] [place] [address]- 7368 May, [facility] [place] [facility] [address] [id number] [place] [address]- 2554 May, [facility] [place] [facility] [address] [id number] [place] [address]- 4998 May, [facility] [place] [facility] [address] [id number] [place] [address]- 3851 May, [facility] [place] [facility] [address] [id number] [place] [address]- 6343 May, [facility] [place] [facility] [address] [id number] [place] [address]- 7500 May, [facility] [place] [facility] [address] [id number] [place] [address]- 7174 May, [facility] [place] [facility] [address] [id number] [place] [address]- 5202 May, [facility] [place] [facility] [address] [id number] [place] [address]- 4516 May, [facility] [place] [facility] [address] [id number] [place] [address]- 5036 May, [facility] [place] [facility] [address] [id number] [place] [address]- 6045 Apr, [facility] [place] [facility] [address] [id number] [place] 2544 Apr, [facility] [place] [facility] [address] [id number] [place] [address]- 5753 Apr, [facility] [place] [facility] [address] [id number] [place] [address]- 0393 Apr, [facility] [place] [facility] [address] [id number] [place] [address]- 7413 Apr, [facility] [place] [facility] [address] [id number] [place] [address]- 4042 Apr, [facility] [place] [facility] [address] [id number] [place] [address]- 2381 Apr, [facility] [place] [facility] [address] [id number] [place] [address]- 9070 Apr, [facility] [place] [facility] [address] [id number] [place] [address]- 3763 Apr, [facility] [place] [facility] [address] [id number] [place] [address]- 2996 Mar, [facility] [place] [facility] [address] [id number] [place] [address]- 0048 Mar, [facility] [place] [facility] [address] [id number] [place] [address]- 9165 Mar, [facility] [place] [facility] [address] [id number] [place] [address]- 2036 Mar, [facility] [place] [facility] [address] [id number] [place] [address]- 6458 Mar, [facility] [place] [facility] [address] [id number] [place] [address]- 4902 Feb, 2013 [facility] [place] [facility] [address] [id number] [place] [address]- 2207 Feb, 2013 [facility] [place] [facility] [address] [id number] [place] 4762 Feb, 2013 [facility] [place] [facility] [address] [id number] [place] [address]- 3077 Feb, 2013 [facility] [place] [facility] [address] [id number] [place] [address]- 2243 Feb, 2013 [facility] [place] [facility] [address] [id number] [place] [address]- 6901 Feb, 2013 [facility] [place] [facility] [address] [id number] [place] [address] Feb, 2013 [facility] [place] [facility] [address] [id number] [place] [address] Feb, 2013 [facility] [place] [facility] [address] [id number] [place] [address] Feb, 2013 [facility] [place] [facility] [address] [id number] [place] [address] Feb, 2013 [facility] [place] [facility] [address] [id number] [place] [address] Feb, 2013 [facility] [place] [facility] [address] [id number] [place] [address] Feb, 2013 [facility] [place] [facility] [address] [id number] [place] [address] Feb, 2013 [facility] [place] [facility] [address] [id number] [place] [address] Feb, 2013 [facility] [place] [facility] [address] [id number] [place] [address] Feb, 2013 [facility] [place] [facility] [address] [id number] [place] [address] Feb, 2013 [facility] [place] [facility] [address] [id number] [place] [address] 23 Jan, 2013 [facility] [place] [facility] [address] [id number] [place] [address] 23 Jan, 2013 [facility] [place] [facility] [address] [id number] [place] [address] 20 Jan, 2013 [facility] [place] [facility] [address] [id number] [place] [address] 19 Jan, 2013 [facility] [place] [facility] [address] [id number] [place] [address] 11 Jan, 2013 [facility] [place] [facility] [address] [id number] [place] [address] 11 Jan, 2013 [facility] [place] [facility] [address] [id number] [place] [address] 79[address] Jan, [facility] [place] [facility] [address] [id number] [place] [address] Jan, 2013 [facility] [place] [facility] [address] [id number] [place] [address] Dec, [facility] [place] [facility] [address] [id number] [place] [address] Dec, [facility] [place] [facility] [address] [id number] [place] [address] Nov, [facility] [place] [facility] [address] [id number] [place] [address] Nov, [facility] [place] [facility] [address] [id number] [place] [address] Nov, [facility] [place] [facility] [address] [id number] [place] [address] Nov, [facility] [place] [facility] [address] [id number] [place] [address] Nov, [facility] [place] [facility] [address] [id number] [place] [address] Nov, [facility] [place] [facility] [address] [id number] [place] [address] Nov, [facility] [place] [facility] [address] [id number] [place] [address] Nov, [facility] [place] [facility] [address] [id number] [place] [address] 79[address] Nov, [facility] [place] [facility] [address] [id number] [place] [address] Oct, [facility] [place] [facility] [address] [id number] [place] [address] Oct, [facility] [place] [facility] [address] [id number] [place] [address] Oct, [facility] [place] [facility] [address] [id number] [place] [address] Oct, [facility] [place] [facility] [address] [id number] [place] [address] Oct, [facility] [place] [facility] [address] [id number] [place] [address] Oct, [facility] [place] [facility] [address] [id number] [place] [address] September, [facility] [place] [facility] [address] [id number] [place] [address] September, [facility] [place] [facility] [address] [id number] [place] [address] September, [facility] [place] [facility] [address] [id number] [place] [address] September, [facility] [place] [facility] [address] [id number] [place] [address] September, [facility] [place] [facility] [address] [id number] [place] [address] September, [facility] [place] [facility] [address] [id number] [place] [address] September, [facility] [address] [id number] [place] [address] September, [facility] [place] [facility] [address] [id number] [place] [address] September, [facility] [place] [facility] [address] [id number] [place] [address] September, [facility] [place] [facility] [address] [id number] [place] [address] September, [facility] [place] [facility] [address] [id number] [place] [address] 39[address] September, [facility] [place] [facility] [address] [id number] [place] [address]- [address] September, [facility] [place] [facility] [address] [id number] [place] [address] September, [facility] [place] [facility] [address] [id number] [place] [address] 52[address] September, [facility] [place] [facility] [address] [id number] [place] [address] 8568 September, [facility] [place] [facility] [address] [id number] [place] [address] 3091 September, [facility] [place] [facility] [address] [id number] [place] [address] 3173 September, [facility] [place] [facility] [address] [id number] [place] [address] 8932 September, [facility] [place] [facility] [address] [id number] [place] [address] September, [facility] [place] [facility] [address] [id number] [place] [address]- 0136 Aug, [facility] [place] [facility] [address] [id number] [place] [address] 8441 Aug, [facility] [place] [facility] [address] [id number] [place] [address] 28 Aug, 2013 [facility] [place] [facility] [address] [id number] [place] [address]- 8962 28 Aug, 2013 [facility] [place] [facility] [address] [id number] [place] [address]- 6768 18 Aug, 2013 [facility] [place] [facility] [address] [id number] [place] [address]- 0079 18 Aug, 2013 [facility] [place] [facility] [address] [id number] [place] [address]- 7496 16 Aug, 2013 [facility] [place] [facility] [address] [id number] [place] [address]- 3982 16 Aug, 2013 [facility] [place] [facility] [address] [id number] [place] [address]- 7432 15 Aug, 2013 [facility] [place] [facility] [address] [id number] [place] [address]- 8007 15 Aug, 2013 [facility] [place] [facility] [address] [id number] [place] [address]- 6234 14 Aug, 2013 [facility] [place] [facility] [address] [id number] [place] [address]- 2129 05 Aug, 2013 [facility] [place] [facility] [address] [id number] [place] [address]- 8491 Aug, [facility] [place] [facility] [address] [id number] [place] [address]- 3574 Aug, [facility] [place] [facility] [address] [id number] [place] [address]- 9386 Aug, [facility] [place] [facility] [address] [id number] [place] [address] Jul, [facility] [place] [facility] [address] [id number] [place] [address] Jul, [facility] [place] [facility] [address] [id number] [place] [address]- 9845 Jul, [facility] [place] [facility] [address] [id number] [place] [address]- 7635 Jul, [facility] [place] [facility] [address] [id number] [place] [address]- 4183 Jul, [facility] [place] [facility] [address] [id number] [place] [address]- 8281 Jul, [facility] [place] [facility] [address] [id number] [place] [address]- 0348 Jul, [facility] [place] [facility] [address] [id number] [place] [address]- 5398 Jul, [facility] [place] [facility] [address] [id number] [place] [address]- 6587 Jul, [facility] [place] [facility] [address] [id number] [place] [address]- 0684 Jul, [facility] [place] [facility] [address] [id number] [place] [address]- 8339 Jul, [facility] [place] [facility] [address] [id number] [place] [address]- 9487 Jul, [facility] [place] [facility] [address] [id number] [place] [address]- 5650 Jul, [facility] [place] [facility] [address] [id number] [place] [address]- 2173 Jul, [facility] [place] [facility] [address] [id number] [place] [address]- 9510 Jul, [facility] [place] [facility] [address] [id number] [place] [address]- 5406 Jun, [facility] [place] [facility] [address] [id number] [place] [address]- 5169 Jun, [facility] [place] [facility] [address] [id number] [place] [address]- 7635 Jun, [facility] [place] [facility] [address] [id number] [place] [address]- 5544 Jun, [facility] [address] [id number] [place] [address]- 5406 Jun, [facility] [place] [facility] [address] [id number] [place] [address]- 2686 Jun, [facility] [address] [id number] [place] [address]- 1186 May, [facility] [place] [facility] [address] [id number] [place] [address]- 5808 May, [facility] [address] [id number] [place] [address]- 2022 May, [facility] [place] [facility] [address] [id number] [place] [address]- 9741 May, [facility] [address] [id number] [place] [address]- 3739 May, [facility] [address] [id number] [place] [address]- 4868 May, [facility] [place] [facility] [address] [id number] [place] [address]- 1204 May, [facility] [address] [id number] [place] [address]- 3727 May, [facility] [place] [facility] [address] [id number] [place] [address]- 9806 May, [facility] [place] [facility] [address] [id number] [place] [address]- 5837 May, [facility] [place] [facility] [address] [id number] [place] [address]- 1906 May, [facility] [place] [facility] [address] [id number] [place] [address]- 0416 May, [facility] [place] [facility] [address] [id number] [place] [address]- 6137 May, [facility] [address] [id number] [place] [address]- 9142 May, [facility] [place] [facility] [address] [id number] [place] [address]- 6721 May, [facility] [place] [facility] [address] [id number] [place] [address]- 6067 Apr, [facility] [place] [facility] [address] [id number] [place] [address]- 8281 Apr, [facility] [place] [facility] [address] [id number] [place] [address]- 0444 Apr, [facility] [place] [facility] [address] [id number] [place] [address]- 4754 Apr, [facility] [place] [facility] [address] [id number] [place] [address]- 6710 Apr, [facility] [place] [facility] [address] [id number] [place] [address]- 9963 Apr, [facility] [place] [facility] [address] [id number] [place] [address]- 3474 Apr, [facility] [place] [facility] [address] [id number] [place] [address]- 3633 Apr, [facility] [place] [facility] [address] [id number] [place] [address]- 2242 Apr, [facility] [place] [facility] [address] [id number] [place] [address]- 0891 Apr, [facility] [place] [facility] [address] [id number] [place] [address]- 3249 Mar, [facility] [place] [facility] [address] [id number] [place] [address]- 6960 Mar, [facility] [place] [facility] [address] [id number] [place] [address]- 1336 Mar, [facility] [place] [facility] [address] [id number] [place] [address]- 4270 Mar, [facility] [address] [id number] [place] [address]- 6785 Mar, [facility] [place] [facility] [address] [id number] [place] [address]- 6419 Mar, [facility] [address] [id number] [place] [address]- 7896 Mar, [facility] [place] [facility] [address] [id number] [place] [address]- 9299 Mar, [facility] [address] [id number] [place] [address]- 2872 Mar, [facility] [place] [facility] [address] [id number] [place] [address]- 6091 Mar, [facility] [address] [id number] [place] [address]- 5661 Mar, [facility] [place] [facility] [address] [id number] [place] [address]- 1314 Mar, [facility] [address] [id number] [place] [address]- 5341 Mar, [facility] [address] [id number] [place] [address]- 1091 Mar, [facility] [address] [id number] [place] [address]- 7474 18 Mar, 2013 [facility] [place] [facility] [address] [id number] [place] [address]- 7375 18 Mar, 2013 [facility] [place] [facility] [address] [id number] [place] [address]- 3008 14 Mar, 2013 [facility] [place] [facility] [address] [id number] [place] [address]- 2516 14 Mar, 2013 [facility] [place] [facility] [address] [id number] [place] [address]- 3419 12 Mar, 2013 [facility] [place] [facility] [address] [id number] [place] [address]- 3286 Mar, [facility] [place] [facility] [address] [id number] [place] [address]- 9871 Mar, [facility] [place] [facility] [address] [id number] [place] [address]- 9184 Mar, [facility] [place] [facility] [address] [id number] [place] [address]- 8512 Mar, [facility] [place] [facility] [address] [id number] [place] Feb, [facility] [place] [facility] [address] [id number] [place] [address]- 3579 Feb, [facility] [place] [facility] [address] [id number] [place] Feb, [facility] [place] [facility] [address] [id number] [place] [address]- 6024 Feb, [facility] [place] [facility] [address] [id number] [place] [address]- 4317 Feb, [facility] [place] [facility] [address] [id number] [place] [address]- 6456 Feb, [facility] [place] [facility] [address] [id number] [place] [address]- 9388 Feb, [facility] [place] [facility] [address] [id number] [place] [address]- 4305 Feb, [facility] [place] [facility] [address] [id number] [place] [address]- 3295 Feb, [facility] [place] [facility] [address] [id number] [place] [address]- 4291 Feb, [facility] [place] [facility] [address] [id number] [place] [address]- 8646 30 Jan, 2013 [facility] [place] [facility] [address] [id number] [place] [address]- 3729 26 Jan, 2013 [facility] [place] [facility] [address] [id number] [place] [address]- 5357 24 Jan, 2013 [facility] [place] [facility] [address] [id number] [place] [address]- 3047 23 Jan, 2013 [facility] [place] [facility] [address] [id number] [place] [address]896 Jan, [facility] [place] [facility] [address] [id number] [place] [address]- 0864 Dec, [facility] [place] [facility] [address] [id number] [place] [address]- 0977 Dec, [facility] [place] [facility] [address] [id number] [place] [address]- 7935 Dec, [facility] [place] [facility] [address] [id number] [place] [address]- 9811 Dec, [facility] [place] [facility] [address] [id number] [place] [address]- 5239 Dec, [facility] [place] [facility] [address] [id number] [place] [address]- 3530 Dec, [facility] [place] [facility] [address] [id number] [place] [address]- 6054 Dec, [facility] [place] [facility] [address] [id number] [place] [address]- 2032 Nov, [facility] [place] [facility] [address] [id number] [place] [address]- 1616 Nov, [facility] [place] [facility] [address] [id number] [place] [address]- 6039 Nov, [facility] [place] [facility] [address] [id number] [place] [address]- 5744 Nov, [facility] [place] [facility] [address] [id number] [place] [address]- 5402 Nov, [facility] [place] [facility] [address] [id number] [place] [address]- 8787 18 Oct, 2012 [facility] [address] [id number] [place] [address]- 8730 14 Oct, 2012 [facility] [address] [id number] [place] [address]- 8418 06 Oct, 2012 [facility] [address] [id number] [place] [address]- 6775 September, [facility] [address] [id number] [place] [address]- 4056 September, [facility] [address] [id number] [place] [address]- 5344 September, [facility] [address] [id number] [place] [address]- 4471 September, [facility] [address] [id number] [place] [address]- 9068 September, [facility] [address] [id number] [place] [address]- 1194 September, [facility] [address] [id number] [place] [address]- 6922 September, [facility] [address] [id number] [place] [address]- 9558 Aug, [facility] [address] [id number] [place] [address]- 3876 Aug, [facility] [address] [id number] [place] [address]- 4703 Aug, [facility] [place] [facility] [address] [id number] [place] [address]- 3269 29 Jul, 2012 [facility] [place] [facility] [address] [id number] [place] [address]- 7445 Jul, [facility] [address] [id number] [place] [address]- 0466 Jul, [facility] [place] [facility] [address] [id number] [place] [address]- 0704 20 Jul, 2012 [facility] [place] [facility] [address] [id number] [place] [address]- 6134 18 Jul, 2012 [facility] [place] [facility] [address] [id number] [place] [address]- 4273 18 Jul, 2012 [facility] [place] [facility] [address] [id number] [place] [address]- 5813 Jul, [facility] [address] [id number] [place] [address]- 6811 28 Jun, 2012 [facility] [place] [facility] [address] [id number] [place] [address]- 7012 Jun, [facility] [address] [id number] [place] [address]- 1813 Jun, [facility] [place] [facility] [address] [id number] [place] [address]- 1656 Jun, [facility] [place] [facility] [address] [id number] [place] [address]- 8094 15 Jun, 2012 [facility] [place] [facility] [address] [id number] [place] [address]- 1779 Jun, [facility] [place] [facility] [address] [id number] [place] [address]- 8678 Jun, [facility] [place] [facility] [address] [id number] [place] [address]- 2545 Jun, [facility] [place] [facility] [address] [id number] [place] [address]- 6153 Jun, [facility] [place] [facility] [address] [id number] [place] [address]- 3062 Jun, [facility] [place] [facility] [address] [id number] [place] [address]- 7485 May, [facility] [place] [facility] [address] [id number] [place] [address]- 4982 22 May, 2012 [facility] [address] [id number] [place] [address]- 0886 17 May, 2012 [facility] [address] [id number] [place] [address]- 6966 17 May, 2012 [facility] [address] [id number] [place] [address]- 7786 15 May, 2012 [facility] [address] [id number] [place] [address]- 7961 07 May, 2012 [facility] [address] [id number] [place] 1727 31 Apr, 2012 [facility] [address] [id number] [place] [address]- 9540 31 Apr, 2012 [facility] [address] [id number] [place] [address]- 9526 Apr, [facility] [address] [id number] [place] [address]- 0467 28 Apr, 2012 [facility] [address] [id number] [place] [address]- 1471 26 Apr, 2012 [facility] [address] [id number] [place] [address]- 8732 20 Apr, 2012 [facility] [address] [id number] [place] [address] 2546 Apr, [facility] [address] [id number] [place] [address]- 2549 29 Mar, 2012 [facility] [address] [id number] [place] [address]- 0168 29 Mar, 2012 [facility] [address] [id number] [place] [address]- 7203 27 Mar, 2012 [facility] [address] [id number] [place] [address]- 5204 Mar, [facility] [place] [facility] [address] [id number] [place] [address]- 5006 Mar, [facility] [place] [facility] [address] [id number] [place] [address]- 6813 Mar, [facility] [place] [facility] [address] [id number] [place] [address]- 9613 Mar, [facility] [place] [facility] [address] [id number] [place] [address]- 2726 Mar, [facility] [place] [facility] [address] [id number] [place] [address]- 5922 Mar, [facility] [place] [facility] [address] [id number] [place] [address]- 6640 Mar, [facility] [place] [facility] [address] [facility] [id number] [place] [address]- 5288 Mar, [facility] [place] [facility] [address] [id number] [place] [address]- 3464 Mar, [facility] [place] [facility] [address] [facility] [id number] [place] [address]- 8035 Mar, [facility] [place] [facility] [address] [facility] [id number] [place] [address]- 2328 Mar, [facility] [place] [facility] [address] [facility] [id number] [place] [address]- 3092 Mar, [facility] [place] [facility] [address] [id number] [place] [address]- 5438 Mar, [facility] [place] [facility] [address] [id number] [place] [address]- 5118 Mar, [facility] [place] [facility] [address] [id number] [place] [address]- 9663 Feb, [facility] [place] [facility] [address] [facility] [id number] [place] [address]- 4173 Feb, [facility] [place] [facility] [address] [id number] [place] [address]- 3274 17 Feb, 2012 [facility] [place] [facility] [address] [id number] [place] [address]- 7659 17 Feb, 2012 [facility] [place] [facility] [address] [id number] [place] [address]- 7186 16 Feb, 2012 [facility] [place] [facility] [address] [id number] [place] [address]- 7036 16 Feb, 2012 [facility] [place] [facility] [address] [id number] [place] [address]- 2184 Feb, [facility] [place] [facility] [address] [id number] [place] [address]- 9612 Feb, [facility] [place] [facility] [address] [id number] [place] [address]- 7228 05 Feb, 2012 [facility] [place] [facility] [address] [facility] [id number] [place] [address]- 9155 04 Feb, 2012 [facility] [place] [facility] [address] [id number] [place] [address]- 9720 02 Feb, 2012 [facility] [place] [facility] [address] [facility] [id number] [place] [address]- 3078 27 Jan, 2012 [facility] [place] [facility] [address] [facility] [id number] [place] [address]- 7324 25 Jan, 2012 [facility] [place] [facility] [address] [id number] [place] [address] 13 Jan, 2012 [facility] [place] [facility] [address] [id number] [place] [address] 12 Jan, 2012 [facility] [place] [facility] [address] [id number] [place] [address] 07 Jan, 2012 [facility] [place] [facility] [address] [id number] [place] [address] 31 Dec, 2011 [facility] [place] [facility] [address] [id number] [place] [address] 24 Dec, 2011 [facility] [place] [facility] [address] [id number] [place] [address] Dec, [facility] [place] [facility] [address] [id number] [place] [address] Dec, [facility] [place] [facility] [address] [id number] [place] [address] Dec, [facility] [place] [facility] [address] [id number] [place] [address] Dec, [facility] [place] [facility] [address] [id number] [place] [address] Dec, [facility] [place] [facility] [address] [id number] [place] [address] Dec, [facility] [place] [facility] [address] [id number] [place] [address] Nov, [facility] [place] [facility] [address] [id number] [place] [address] Nov, [facility] [place] [facility] [address] [id number] [place] [address] Nov, [facility] [place] [facility] [address] [id number] [place] [address] Nov, [facility] [place] [facility] [address] [id number] [place] [address] Nov, [facility] [place] [facility] [address] [id number] [place] [address] Oct, [facility] [place] [facility] [address] [id number] [place] [address] Oct, [facility] [place] [facility] [address] [id number] [place] [address] September, [facility] [place] [facility] [address] [id number] [place] [address] September, [facility] [place] [facility] [address] [id number] [place] [address]- [address] September, [facility] [address] [id number] [place] [address] September, [facility] [place] [facility] [address] [id number] [place] [address] September, [facility] [place] [facility] [address] [id number] [place] [address]- [address] September, [facility] [place] [facility] [address] [id number] [place] [address] 9[address] September, [facility] [place] [facility] [address] [id number] [place] [address]- [address] September, [facility] [place] [facility] [address] [id number] [place] [address]- 9542 September, [facility] [place] [facility] [address] [id number] [place] [address]- 2582 September, [facility] [place] [facility] [address] [id number] [place] [address]- 9678 September, [facility] [place] [facility] [address] [id number] [place] [address]- 2660 September, [facility] [place] [facility] [address] [id number] [place] [address] September, [facility] [place] [facility] [address] [id number] [place] [address] September, [facility] [place] [facility] [address] [id number] [place] [address] 2806 24 Aug, 2011 [facility] [place] [facility] [address] [id number] [place] [address] Aug, [facility] [place] [facility] [address] [id number] [place] [address]- 1334 13 Aug, 2011 [facility] [place] [facility] [address] [id number] [place] [address]- 70[address] Aug, [facility] [place] [facility] [address] [id number] [place] [address] 23 Jul, 2011 [facility] [address] [id number] [place] [address] 13 Jul, 2011 [facility] [address] [id number] [place] [address] 2546 13 Jul, 2011 [facility] [address] [id number] [place] [address] 2546 28 Jun, [address] [facility] [address] [id number] [id number] 26 Jun, 2011 [facility] [address] [id number] [place] [address]- 77[address] 13 Jun, 2011 [facility] [address] [id number] [place] [address]- 1136 10 Jun, 2011 [facility] [id number] [place] [address] 07 Jun, 2011 [facility] [address] [id number] [place] [address] 2541 07 Jun, 2011 [facility] [address] [id number] [place] [address]- 7546 03 Jun, 2011 [facility] [address] [id number] [place] [address]- 1096 02 Jun, 2011 [facility] [address] [id number] [place] [address] 2546 May, [facility] [address] [id number] [place] [address] 2548 May, [facility] [place] [facility] [address] [id number] [place] [address] 2548 May, [facility] [place] [facility] [address] [id number] [place] [address] 2546 May, [facility] [place] [facility] [address] [id number] [place] [address]- 30[address] May, [facility] [place] [facility] [address] [id number] [place] [address]- 5960 May, [facility] [address] [id number] [place] [address]- 1406 May, [facility] [place] [facility] [address] [id number] [place] [address] 2546 May, [facility] [place] [facility] [address] [id number] [place] [address] 2544 May, [facility] [address] [id number] [place] [address]- [address] May, [facility] [address] [id number] [place] [address] May, [facility] [address] [id number] [place] [address]- 555[address] May, [facility] [address] [id number] [place] [address]- 9216 May, [facility] [address] [id number] [place] [address]- 9411 May, [facility] [address] [id number] [place] [address]- 5818 Apr, [facility] [place] [facility] [address] [id number] [place] [address]- [address]46 16 Apr, 2011 [facility] [place] [facility] [address] [id number] [place] [address] 05 Apr, 2011 [facility] [place] [facility] [address] [id number] [place] [address] Mar, [facility] [place] [facility] [address] [id number] [place] [address]- 2546 Mar, [facility] [place] [facility] [address] [id number] [place] [address]- 2546 Feb, [facility] [place] [facility] [address] [id number] [place] [address]- [address] 26 Feb, 2011 [facility] [place] [facility] [address] [id number] [place] [address]- 7666 21 Feb, 2011 [facility] [place] [facility] [address] [id number] [place] [address] 20 Feb, 2011 [facility] [place] [facility] [address] [id number] [place] [address] 13 Feb, 2011 [facility] [place] [facility] [address] [id number] [place] [address] 28 Apr, 2010 [facility] [place] [facility] [address] [id number] [place] [address] 22 Apr, 2010 [facility] [place] [facility] [address] [id number] [place] [address] 16 Apr, 2010 [facility] [place] [facility] [address] [id number] [place] [address] 15 Apr, 2010 [facility] [place] [facility] [address] [id number] [place] [address] 15 Apr, 2010 [facility] [place] [facility] [address] [id number] [place] [address] Apr, [facility] [place] [facility] [address] [id number] [place] [address] 24 Mar, 2010 [facility] [place] [facility] [address] [id number] [place] [id number]46 17 Mar, 2010 [facility] [place] [facility] [address] [id number] [place] [address] 17 Mar, 2010 [facility] [place] [facility] [address] [id number] [place] [address] 28 Feb, 2010 [facility] [place] [facility] [address] [id number] [place] [address] 22 Feb, 2010 [facility] [place] [facility] [address] [id number] [place] [address] Feb, [facility] [place] [facility] [address] [id number] [place] [address] 15 Feb, 2010 [facility] [place] [address] [id number] [address] 18 Dec, 2009 [facility] [place] [address] [id number] [address] Dec, [facility] [place] [address] [id number] [address] Oct, [facility] [place] [id number] [address] Mar, [facility] [place] [address] [id number] [address] Mar, [facility] [place] [address] [id number] [address] September, IMMUNIZATIONS No Known Immunizations SOCIAL HISTORY Never Assessed REASON FOR VISIT Prior Authorization Request PLAN OF CARE VITAL SIGNS MEDICATIONS No [...]
--- OUTSIDE RECORDS SUMMARY | 2017-12-20 13:05 | XMS REPORT ---
Author Author VALERIE ZAVALA [facility] Address [address] [place] [address] Care Team Providers Care Nursing Home Administrator Name Role Phone VALERIE ZAVALA Unavailable PROBLEMS Type Condition ICD9-CM Code CEP37-JS Code Onset Dates Condition Status SNOMED Code Problem Generalized anxiety disorder F41.1 Active 04776506 Problem Hypokalemia E87.6 Active 050277220 Problem Right low back pain, with sciatica presence unspecified M54.5 Active 462412546 Problem Post-traumatic stress disorder, chronic F43.12 Active 40580291 Problem Pain in right knee M25.561 Active 01307666 Problem Gastroesophageal reflux disease without esophagitis K21.9 Active 433175777 Problem UTI symptoms R39.9 Active 86951398 Problem Essential hypertension I10 Active 61155749 Problem Anxiety F41.9 Active 07777350 Problem Neuropathy G62.9 Active 769565388 Problem Other chronic pain G89.29 Active 39272963 Problem Generalized abdominal pain R10.84 Active 565340159 Problem Chronic pain G89.29 Active 97552095 Problem Back pain M54.9 Active 027932571 Problem Right foot pain M79.671 Active 42007380 Problem Panic attacks F41.0 Active 769836802 Problem Other emphysema J43.8 Active 93404017 Problem Kidney stones N20.0 Active 90737685 Problem Renal calculus, right N20.0 Active 46628796 Problem Weight decrease R63.4 Active 060827513 Problem Tobacco abuse Z72.0 Active 98343841 Problem Bone pain M89.8X9 Active 98364005 Problem Depression, unspecified depression type F32.9 Active 54551644 Problem Insomnia, unspecified type G47.00 Active 226473404 Problem Pulmonary emphysema, unspecified emphysema type J43.9 Active 16513290 Problem Right upper quadrant abdominal pain R10.11 Active 774111230 Problem Weight loss R63.4 Active 359150162 ALLERGIES No Information ENCOUNTERS Encounter Location Date Diagnosis [facility] [address] [address] Nov, [facility] [id number] [place] [address] 45950- 4996 16 Nov, 2017 Pelvic pain R10.2 ; Acute pyelonephritis N10 and Essential hypertension I10 [facility] [id number] [place] [address] 24904- 5300 28 Oct, 2017 Medicare welcome exam Z00.00 [facility] [id number] [place] [address] 84734- 2555 18 Oct, 2017 Gross hematuria R31.0 ; Urinary tract infection without hematuria, site unspecified N39.0 and Weakness R53.1 [facility] [id number] [address] 8716 13 Oct, 2017 [facility] [id number] [place] [address] 46019- 1796 Oct, [facility] [id number] [place] [address] 44229- 2132 Oct, Medicare welcome exam Z00.00 [facility] [id number] [address] September, Back pain M54.9 and Right anterior knee pain M25.561 [facility] [id number] [address] 8[address] September, [facility] [address] [address] September, [facility] [id number] [address] 2570 September, Essential hypertension I10 [facility] [address] [address] 8980 September, [facility] [id number] [place] [address] 05718- 0173 September, RLQ abdominal pain R10.31 ; Low back pain M54.5 and Other chronic pain G89.29 [facility] [id number] [place] [address] 54165- 0770 Aug, Medicare welcome exam Z00.00 [facility] [id number] [place] [address] 81676- 6025 Aug, [facility] [address] 30231- 0141 Aug, Acute pyelonephritis N10 and Medicare welcome exam Z00.00 [facility] [id number] [place] [address] 22922 -4975 Aug, Dysuria R30.0 and Acute pyelonephritis N10 [facility] [id number] [place] [address] 81503- 0069 Aug, [facility] [address] 97220- 3025 Aug, [facility] [id number] [place] [address] 66646- 5335 Aug, [facility] [id number] [place] [address] 34139- 0175 Aug, [facility] [id number] [place] [address] 00565- 6005 Jul, [facility] [id number] [place] [address] 82573- 0571 Jul, Renal calculus, right N20.0 and Medicare welcome exam Z00.00 [facility] [id number] [place] [address] 59742 -5112 Jul, Dysuria R30.0 and Renal calculus, right N20.0 [facility] [id number] [place] [address] 36948- 1083 Jul, Medicare welcome exam Z00.00 [place] [address], [place] [address] 1645 13 Jun, 2017 Gastroesophageal reflux disease without esophagitis K21.9 and Generalized abdominal pain R10.84 [place] [id number] [place] [address] 78560- 4856 09 Jun, 2017 Medicare welcome exam Z00.00 [place] [id number] [place] [address] 90412- 7516 05 Jun, 2017 [place] [id number] [place] [address] 27044- 7652 05 Jun, 2017 Medicare welcome exam Z00.00 and Encounter for screening mammogram for malignant neoplasm of breast Z12.31 [place] [id number] [place] [address] 46017- 1436 02 Jun, 2017 Chronic pain G89.29 [place] [id number] [place] [address] 07476- 7772 24 May, 2017 [place] [id number] [place] [address] 91832- 3734 May, Pelvic pain R10.2 [place] [id number] [place] [address] 24813- 3335 May, Pelvic pain R10.2 [facility] [place] [id number] [place] [address] 36439 -8881 May, Renal calculus, right N20.0 [place] [id number] [place] [address] 60520- 8797 May, Hematuria, unspecified type R31.9 and Nephrolithiasis N20.0 [facility] [place] [id number] [place] [address] 15301 -0579 May, Dysuria R30.0 and Nephrolithiasis N20.0 [place] [id number] [place] [address] 21493- 1335 May, [facility] [address], [place] [address] May, Abdominal pain R10.9 and Kidney stone N20.0 [facility] [id number] [place] [address] 29663- 1343 May, [facility] [id number] [place] [address] 92089- 9086 May, Chronic pain G89.29 and Panic attacks F41.0 [facility] [id number] [place] [address] 80790- 9913 May, Urinary tract infection without hematuria, site unspecified N39.0 [facility] [id number] [place] [address] 99067- 4807 Apr, Right lower quadrant abdominal pain R10.31 and Abnormal serum lipase level R74.8 [place] [id number] [place] [address] 58657- 5917 Apr, Recurrent urinary tract infection N39.0 [facility] [id number] [place] [address] 13486- 4178 Apr, UTI symptoms R39.9 ; Recurrent urinary tract infection N39.0 and Pelvic pain R10.2 [facility] [address] [place] [address] 62514- 8836 Apr, Chronic pain G89.29 and Panic attacks F41.0 [facility] [id number] [place] [address] 36322- 3125 Apr, Dysuria R30.0 [facility] [id number] [place] [address] 99265- 1734 Apr, [place] [address] [place] [address] 13861- 4562 Apr, Dysuria R30.0 and Urinary tract infection without hematuria , site unspecified N39.0 [facility] [address] [place] [address] 08883- 0729 Mar, UTI symptoms R39.9 [facility] [id number] [place] [address] 86621- 2476 Mar, [place] [id number] [place] [address] 76748- 6666 Mar, Panic attacks F41.0 and Chronic pain G89.29 [place] [address] 41435- 7828 Mar, [place] [id number] [place] [address] 95439- 5835 Mar, Dysuria R30.0 [place] [address] 20379- 9123 Mar, Dysuria R30.0 [place] [address] 47677- 1728 Feb, Chronic pain G89.29 ; Shortness of breath R06.02 ; Weight loss R63.4 ; Encounter for immunization Z23 ; Bone pain M89.8X9 ; Right anterior knee pain M25.561 and Cough R05 [place] [address] 09023- 7946 Feb, Shortness of breath R06.02 [place] [id number] [place] [address] 79847- 6839 Feb, [place] [id number] [place] [address] 42068- 8963 Feb, Panic attacks F41.0 and Chronic pain G89.29 [place] [id number] [place] [address] 40841- 6939 Feb, [place] [address] 51099- 1000 Feb, Panic attacks F41.0 ; Shortness of breath R06.02 and Encounter for immunization Z23 [place] [address] 75183- 9343 Jan, [facility] [id number] [place] [address] 61165- 4149 Jan, Anxiety F41.9 and Chronic pain G89.29 [facility] [id number] [place] [address] 15929- 6404 Dec, Anxiety F41.9 and Chronic pain G89.29 [facility] [address] 85371- 8028 Nov, Chronic pain G89.29 [facility] [id number] [place] [address] 19471- 1154 Nov, Anxiety F41.9 [place] [id number] [place] [address] 89362- 7015 Nov, Chronic pain G89.29 ; Essential hypertension I10 and Other emphysema J43.8 [place] [id number] [place] [address] 68117- 9444 Oct, Anxiety F41.9 [facility] [id number] [place] [address] 20930- 0823 Oct, [place] [id number] [place] [address] 68160- 6831 Oct, Chronic pain G89.29 [facility] [id number] [place] [address] 32684- 6400 September, Recurrent UTI N39.0 ; Neuropathy G62.9 and Anxiety F41.9 [facility] [id number] [place] [address] 02334- 1676 September, [facility] [id number] [place] [address] 46642- 0159 September, Chronic pain G89.29 [facility] [id number] [place] [address] 43493- 4320 September, [facility] [address], [place] [address]- 4702 Aug, Post-traumatic stress disorder, chronic F43.12 ; Chronic urinary tract infection N39.0 ; Gastroesophageal reflux disease without esophagitis K21.9 ; Chronic pain G89.29 ; Essential hypertension I10 and Tobacco abuse Z72.0 [facility] [address], [place] [address]16 Aug, [facility] [id number] [place] [address] 63396 2546 Aug, Chronic pain G89.29 [facility] [id number] [place] [address] 11687- 3236 Aug, Insomnia, unspecified type G47.00 [facility] [address], [place] [address]- 1276 Aug, [facility] [id number] [place] [address] 78516- 8926 Jul, Chronic pain G89.29 [facility] [address], [place] [address]- 6290 Jul, [facility] [address], [place] [address]- 9809 Jul, [facility] [address], [place] [address]- 7394 Jul, [facility] [address], [place] [address]- 2540 15 Jul, 2016 Recurrent UTI (urinary tract infection) N39.0 [facility] [address], [place] [address]- 2546 14 Jul, 2016 [facility] [address], [place] [address]- 2546 Jun, Chronic pain G89.29 [facility] [address], [place] [address]- 2546 Jun, [facility] [id number] [place] [address] 44873- 3690 Jun, [facility] [address] 19975- 3788 May, Chronic pain G89.29 [place] [id number] [place] [address] 29989- 3311 May, Weight loss R63.4 and Shortness of breath R06.02 [facility] [address] 37596- 8500 May, Chronic pain G89.29 ; Weight loss R63.4 and Tobacco abuse Z72.0 [place] [address] 82352- 0466 May, [place] [id number] [place] [address] 65426- 3108 May, Hypoxia R09.02 [facility] [address] 82329- 0743 May, [facility] [id number] [place] [address] 82390- 7678 May, Pulmonary emphysema, unspecified emphysema type J43.9 [facility] [id number] [place] [address] 94788 -5320 May, [facility] [id number] [place] [address] 56811- 5122 May, [facility] [id number] [place] [address] 49733- 6988 May, [facility] [id number] [place] [address] 61209- 3019 May, Chronic pain G89.29 ; Encounter for immunization Z23 ; Right anterior knee pain M25.561 and Cough R05 [facility] [id number] [place] [address] 82397- 8222 Apr, Chronic pain G89.29 [place] [id number] [place] [address] 04060- 7037 Apr, [facility] [id number] [place] [address] 91091- 1260 Apr, Generalized anxiety disorder F41.1 and Depression, unspecified depression type F32.9 [facility] [id number] [place] [address] 50168- 9000 Apr, Chronic pain G89.29 ; Hypokalemia E87.6 and Insomnia, unspecified type G47.00 [facility] [id number] [place] [address] 42857- 4578 Apr, [facility] [id number] [place] [address] 94939- 5327 Apr, Chronic pain G89.29 [facility] [id number] [place] [address] 74844- 0751 Apr, [facility] [id number] [place] [address] 92690- 9890 Mar, [facility] [id number] [place] [address] 08187- 8441 Mar, Insomnia, unspecified type G47.00 [facility] [id number] [place] [address] 91968- 3048 Mar, Chronic pain G89.29 [facility] [id number] [place] [address] 06536- 9189 Mar, [facility] [id number] [place] [address] 92814- 7660 Feb, [facility] [id number] [place] [address] 93593- 5700 Feb, [facility] [id number] [place] [address] 50509- 1005 Feb, [facility] [id number] [place] [address] 98348- 3166 Feb, [facility] [address], [place] [address]- 3181 Feb, [facility] [id number] [place] [address] 41808- 3384 Jan, [facility] [address] [place] [address] 88486- 2503 Jan, [facility] [id number] [place] [address] 26435- 0303 Jan, [facility] [address] [place] [address] 40166- 3089 13 Jan, 2016 [facility] [id number] [place] [address] 35620- 8603 Jan, [facility] [id number] [place] [address] 66379- 9534 Jan, Chronic pain G89.29 [facility] [id number] [place] [address] 26675- 6419 Jan, Chronic pain G89.29 and Fibromyalgia M79.7 [facility] [id number] [place] [address] 64537- 2543 Dec, Depression, unspecified depression type F32.9 and Generalized anxiety disorder 300.02 [facility] [address] [place] [address] 69424- 5330 Dec, Dysthymia F34.1 ; Insomnia, unspecified type G47.00 and Chronic pain G89.29 [facility] [address], [place] [address]- 7843 Dec, Chronic pain G89.29 [facility] [address] [place] [address] 15664- 5426 Dec, Insomnia, unspecified type G47.00 [facility] [address] [place] [address] 06226- 4114 Dec, Fibromyalgia M79.7 and Chronic pain G89.29 [facility] [address] [facility] [id number] [address]- 1053 Dec, [facility] [address] [facility] [id number] [place] [address] 67046- 1555 Dec, [facility] [address] [facility] [id number] [place] [address] 50563- 9907 Dec, [facility] [address] [facility] [id number] [place] [address] 30199- 2518 Dec, [facility] [address] [facility] [id number] [place] [address] 53168- 6010 Dec, Chronic pain G89.29 [facility] [address] [place] [id number] [place] [address] 42898- 5298 Dec, [facility] [address] [place] [address] [id number] [place] [address] 04815- 4556 Dec, [facility] [address] [facility] [id number] [place] [address] 45602- 7937 Dec, [facility] [address] [place] [address] [id number] [place] [address] 87358- 4272 Dec, Chronic pain G89.29 and Dysthymia F34.1 [facility] [id number] [place] [address] 47258- 1235 Nov, [facility] [address] [place] [id number] [place] [address] 70802- 3306 Nov, Hypokalemia E87.6 and Chronic pain G89.29 [facility] [address] [facility] [id number] [place] [address] 88049- 3343 Nov, Back pain M54.9 and Pain in right knee M25.561 [facility] [address] [facility] [id number] [address]- 5032 Nov, [facility] [address] [place] [id number] [place] [address] 99175- 7211 Nov, Chronic pain G89.29 [facility] [address] [place] [address] 47136 2546 Nov, Chronic pain G89.29 ; Weight loss R63.4 ; Bone pain M89.8X9 and Insomnia, unspecified type G47.00 [facility] [id number] [place] [address] 60801- 0096 Nov, Chronic pain G89.29 [facility] [id number] [place] [address] 65623 2546 Nov, Chronic pain G89.29 [facility] [id number] [place] [address] 45158 2546 Oct, Chronic pain G89.29 [facility] [id number] [place] [address] 82316- 9036 Oct, UTI symptoms R39.9 [facility] [id number] [place] [address] 57676 2545 Oct, Chronic pain G89.29 [facility] [id number] [place] [address] 30825- 7192 Oct, Chronic pain G89.29 [facility] [id number] [place] [address] 11900 2546 Oct, Chronic pain G89.29 [facility] [id number] [place] [address] 30484 2546 Oct, Right upper quadrant abdominal pain R10.11 [facility] [id number] [place] [address] [id number] 2546 Oct, Chronic pain G89.29 [facility] [id number] [place] [address] 28532 2546 Oct, [facility] [id number] [place] [address] 63643- 5180 September, Chronic pain G89.29 [facility] [address] [address] September, Dysuria R30.0 and Urinary tract infection without hematuria , site unspecified N39.0 [facility] [address] [address] September, [facility] [address] [address] September, Dysuria R30.0 [facility] [id number] [place] [address] 73576- 9478 September, Chronic pain G89.29 [facility] [id number] [place] [address] 30167- 6738 September, Chronic pain G89.29 and Essential hypertension I10 [facility] [id number] [place] [address] 56566- 2826 September, [facility] [id number] [place] [address] 15544- 3141 September, [facility] [id number] [place] [address] 84485- 4193 September, [facility] [id number] [place] [address] 57766- 6825 Aug, UTI symptoms R39.9 [facility] [address] [address] Aug, Dysuria R30.0 [facility] [address] [address] 2682 Aug, [facility] [address] [address] 27[address] Aug, [facility] [address] [address] 7068 Aug, [facility] [address] [address] 7[address] Aug, Chronic pain G89.29 [facility] [address] [place] [address] 9[address] Aug, Dysthymia F34.1 [facility] [id number] [place] [address] 20526- 5006 Aug, Conjunctivitis, unspecified conjunctivitis type, unspecified laterality H10.9 [facility] [id number] [place] [address] 86745- 2593 31 Jul, 2015 Chronic pain G89.29 ; Back pain M54.9 ; Tobacco abuse Z72.0 and Weight decrease R63.4 [facility] [id number] [place] [address] 28462- 8926 30 Jul, 2015 [facility] [id number] [place] [address] 28469- 5716 30 Jul, 2015 [facility] [id number] [place] [address] 99341- 8868 24 Jul, 2015 Chronic pain G89.29 [facility] [id number] [place] [address] 87726- 1987 22 Jul, 2015 [facility] [id number] [place] [address] 45985 2543 21 Jul, 2015 [facility] [id number] [place] [address] 86662- 2639 18 Jul, 2015 [facility] [id number] [place] [address] 49973 2540 17 Jul, 2015 [facility] [id number] [place] [address] 45752 2541 17 Jul, 2015 Chronic pain G89.29 [facility] [id number] [place] [address] 42690 2546 16 Jul, 2015 Chronic pain G89.29 [facility] [id number] [place] [address] 95636- 1946 15 Jul, 2015 [facility] [id number] [place] [address] 39565- 8449 Jul, [facility] [id number] [place] [address] 10752- 3823 Jul, [facility] [id number] [place] [address] 84696- 8417 Jul, [facility] [address] 64220- 2056 Jun, [facility] [address] 60014- 8218 Jun, Depression, unspecified depression type F32.9 [place] [address] 60510- 2933 Jun, Pain in right knee M25.561 [place] [address] 38810- 3231 Jun, Chronic pain G89.29 ; Back pain M54.9 ; Bone pain M89.8X9 and Weight loss R63.4 [facility] [id number] [place] [address] 74205- 6710 Jun, [facility] [id number] [place] [address] 10216- 0061 May, [facility] [id number] [place] [address] 23363- 8067 May, UTI symptoms R39.9 ; Pain in right knee M25.561 ; Right low back pain, with sciatica presence unspecified M54.5 ; Right foot pain M79.671 ; Hypokalemia E87.6 and Screening, lipid Z13.220 [facility] [id number] [place] [address] 71300- 6463 May, [facility] [id number] [place] [address] 62470- 5415 May, [facility] [address] 51472- 9305 Mar, [facility] [id number] [place] [address] 13396- 1766 Mar, [facility] [id number] [place] [address] 18822- 1916 Mar, Hypokalemia E87.6 [facility] [id number] [place] [address] 18153- 2436 Mar, Pain in right leg M79.604 ; Encounter for immunization Z23 ; Pain in right knee M25.561 and Hypokalemia E87.6 [facility] [id number] [place] [address] 44102- 3756 Jan, [facility] [id number] [place] [address] 92500- 9736 Jan, [facility] [id number] [place] [address] 86665- 4792 Jan, Abdominal pain, generalized 789.07 [facility] [id number] [place] [address] 99362- 0172 Jan, Abdominal pain, generalized 789.07 [facility] [id number] [place] [address] 15647- 5854 Dec, [facility] [id number] [place] [address] 90540- 1682 Dec, [facility] [id number] [place] [address] 35390- 3816 Dec, [facility] [id number] [place] [address] 22884- 2395 Nov, Hallux valgus 735.0 and Hammertoe 735.4 [facility] [id number] [place] [address] 35563- 8036 Nov, [facility] [id number] [place] [address] 29563- 4949 Nov, Hallux valgus 735.0 and Hammer toe 735.4 [facility] [address] [address]- 4865 Oct, [facility] [address] 2366 Oct, [facility] [address] [address]- 3809 Oct, Pre-op evaluation V72.84 [facility] [address] [address]- 9644 Oct, [facility] [id number] [place] [address] 639013- 9303 Oct, [facility] [address] [address]- 4688 September, [facility] [id number] [place] [address] 03128- 5863 September, [facility] [address] [address]- 5983 September, Hallux valgus (acquired) 735.0 and Other hammer toe ( acquired) 735.4 [facility] [address] [address]- 0214 Aug, [facility] [address] [address]- 2589 Aug, [facility] [address] [address]- 1062 Jul, [facility] [address] [address]- 5540 Jul, [facility] [address] 8300 Jul, [facility] [address] 0093 Jul, [facility] [place] [facility] [address] [id number] [place] [address]- 3722 Jul, [facility] [place] [facility] [address] [id number] [place] [address]- 2452 Jul, [facility] [place] [facility] [address] [id number] [place] [address]- 1487 Jul, [facility] [place] [facility] [address] [id number] [place] [address]- 4802 Jul, [facility] [place] [facility] [address] [id number] [place] [address]- 0168 Jun, 2014 [facility] [place] [facility] [address] [id number] [place] [address]- 6225 Jun, 2014 [facility] [place] [facility] [address] [id number] [place] [address]- 6894 Jun, 2014 [facility] [place] [facility] [address] [id number] [place] [address]- 4325 Jun, 2014 [facility] [place] [facility] [address] [id number] [place] [address]- 7859 Jun, [facility] [place] [facility] [address] [id number] [place] [address]- 2286 Jun, [facility] [place] [facility] [address] [id number] [place] [address]- 8880 Jun, 2014 [facility] [place] [facility] [address] [id number] [place] [address]- 1986 Jun, 2014 [facility] [place] [facility] [address] [id number] [place] [address]- 4212 Jun, [facility] [place] [facility] [address] [id number] [place] [address]- 2382 Jun, [facility] [place] [facility] [address] [id number] [place] [address]- 2055 May, [facility] [place] [facility] [address] [id number] [place] [address]- 5146 May, [facility] [address] [id number] [place] [address]- 3615 May, [facility] [place] [facility] [address] [id number] [place] [address]- 9537 May, [facility] [place] [facility] [address] [id number] [place] [address]- 5955 May, [facility] [place] [facility] [address] [id number] [place] [address]- 6018 May, [facility] [place] [facility] [address] [id number] [place] [address]- 6435 May, [facility] [place] [facility] [address] [id number] [place] [address]- 1298 May, [facility] [place] [facility] [address] [id number] [place] [address]- 1703 May, [facility] [place] [facility] [address] [id number] [place] [address]- 1516 May, [facility] [place] [facility] [address] [id number] [place] [address]- 5396 May, [facility] [place] [facility] [address] [id number] [place] [address]- 4629 May, [facility] [place] [facility] [address] [id number] [place] [address]- 3858 May, [facility] [place] [facility] [address] [id number] [place] [address]- 3178 May, [facility] [place] [facility] [address] [id number] [place] [address]- 0493 May, [facility] [place] [facility] [address] [id number] [place] [address]- 8007 May, [facility] [place] [facility] [address] [id number] [place] [address]- 6619 May, [facility] [place] [facility] [address] [id number] [place] [address]- 6356 May, [facility] [place] [facility] [address] [id number] [place] [address]- 3115 Apr, [facility] [place] [facility] [address] [id number] [place] 1262 Apr, [facility] [place] [facility] [address] [id number] [place] [address]- 3104 Apr, [facility] [place] [facility] [address] [id number] [place] [address]- 4238 Apr, [facility] [place] [facility] [address] [id number] [place] [address]- 8533 Apr, [facility] [place] [facility] [address] [id number] [place] [address]- 2340 Apr, [facility] [place] [facility] [address] [id number] [place] [address]- 3763 Apr, [facility] [place] [facility] [address] [id number] [place] [address]- 2625 Apr, [facility] [place] [facility] [address] [id number] [place] [address]- 2702 Apr, [facility] [place] [facility] [address] [id number] [place] [address]- 4623 Mar, [facility] [place] [facility] [address] [id number] [place] [address]- 6800 Mar, [facility] [place] [facility] [address] [id number] [place] [address]- 2939 Mar, [facility] [place] [facility] [address] [id number] [place] [address]- 2285 Mar, [facility] [place] [facility] [address] [id number] [place] [address]- 6170 Mar, [facility] [place] [facility] [address] [id number] [address]- 2376 Feb, 2013 [facility] [place] [facility] [address] [id number] [place] [address]- 1436 Feb, 2013 [facility] [place] [facility] [address] [id number] [place] 5311 Feb, 2013 [facility] [place] [facility] [address] [id number] [place] [address]- 8673 Feb, 2013 [facility] [place] [facility] [address] [id number] [place] [address]- 7493 Feb, 2013 [facility] [place] [facility] [address] [id number] [place] [address]- 2897 Feb, 2013 [facility] [place] [facility] [address] [id number] [place] [address]- 6117 Feb, 2013 [facility] [place] [facility] [address] [id number], [place] [address]- 2608 Feb, 2013 [facility] [place] [facility] [address] [id number], [place] [address]- 3812 Feb, 2013 [facility] [place] [facility] [address] [id number], [place] [address]- 4677 Feb, 2013 [facility] [place] [facility] [address] [id number], [place] [address]- 4924 Feb, 2013 [facility] [place] [facility] [address] [id number], [place] [address]- 6937 Feb, 2013 [facility] [place] [facility] [address] [id number], [place] [address]- 4421 Feb, 2013 [facility] [place] [facility] [address] [id number], [place] [address]- 0841 Feb, 2013 [facility] [place] [facility] [address] [id number], [place] [address]- 0959 Feb, 2013 [facility] [place] [facility] [address] [id number], [place] [address]- 1748 Feb, 2013 [facility] [place] [facility] [address] [id number] [place] [address]- 7447 23 Jan, 2013 [facility] [place] [facility] [address] [id number] [place] [address]- 1986 23 Jan, 2013 [facility] [place] [facility] [address] [id number] [place] [address]- 8186 20 Jan, 2013 [facility] [place] [facility] [address] [id number] [place] [address]- 0816 19 Jan, 2013 [facility] [place] [facility] [address] [id number] [place] [address]- 2544 11 Jan, 2013 [facility] [place] [facility] [address] [id number] [place] [address]- 4559 11 Jan, 2013 [facility] [place] [facility] [address] [id number] [place] [address]- 1843 Jan, [facility] [place] [facility] [address] [id number] [place] [address]- 4312 Jan, 2013 [facility] [place] [facility] [address] [id number] [place] [address]- 6739 Dec, [facility] [place] [facility] [address] [id number] [place] [address]- 9976 Dec, [facility] [place] [facility] [address] [id number] [place] [address]- 4309 Nov, [facility] [place] [facility] [address] [id number] [place] [address]- 2496 Nov, [facility] [place] [facility] [address] [id number] [place] [address]- 5409 Nov, [facility] [place] [facility] [address] [id number] [place] [address]- 6976 Nov, [facility] [place] [facility] [address] [id number] [place] [address]- 4911 Nov, [facility] [place] [facility] [address] [id number] [place] [address]- 6975 Nov, [facility] [place] [facility] [address] [id number] [place] [address]- 9614 Nov, [facility] [place] [facility] [address] [id number] [place] [address]- 1623 Nov, [facility] [place] [facility] [address] [id number] [place] [address]- 4283 Nov, [facility] [place] [facility] [address] [id number] [place] [address]- 9157 Oct, [facility] [place] [facility] [address] [id number] [place] [address]- 5965 Oct, [facility] [place] [facility] [address] [id number] [place] [address]- 4396 Oct, [facility] [place] [facility] [address] [id number] [place] [address]- 2186 Oct, [facility] [place] [facility] [address] [id number] [place] [address]- 1000 Oct, [facility] [place] [facility] [address] [id number] [place] [address]- 1306 Oct, [facility] [place] [facility] [address] [id number] [place] [address]- 4527 September, [facility] [place] [facility] [address] [id number] [place] [address]- 4566 September, [facility] [place] [facility] [address] [id number] [place] [address]- 6734 September, [facility] [place] [facility] [address] [id number] [place] [address]- 3358 September, [facility] [place] [facility] [address] [id number] [place] [address]- 4536 September, [facility] [place] [facility] [address] [id number] [place] [address]- 5298 September, [facility] [place] [facility] [address] [id number] [place] [address]- 3062 September, [facility] [address] [id number] [place] [address]- 6612 September, [facility] [place] [facility] [address] [id number] [place] [address]- 8888 September, [facility] [place] [facility] [address] [id number] [place] [address]- 3405 September, [facility] [place] [facility] [address] [id number] [place] [address]- 1972 September, [facility] [place] [facility] [address] [id number] [place] [address]- 1878 September, [facility] [place] [facility] [address] [id number] [place] [address]- 1228 September, [facility] [place] [facility] [address] [id number] [place] [address]- 5959 September, [facility] [place] [facility] [address] [id number] [place] [address]- 4341 September, [facility] [place] [facility] [address] [id number] [place] [address]- 8477 September, [facility] [place] [facility] [address] [id number] [place] [address]- 1505 September, [facility] [place] [facility] [address] [id number] [place] [address]- 8541 September, [facility] [place] [facility] [address] [id number] [place] [address]- 5431 September, [facility] [place] [facility] [address] [id number] [place] 8554 September, [facility] [place] [facility] [address] [id number] [place] [address]- 7837 Aug, [facility] [place] [facility] [address] [id number] [place] [address]- 7454 Aug, [facility] [place] [facility] [address] [id number] [place] [address]- 9971 28 Aug, 2013 [facility] [place] [facility] [address] [id number] [place] [address]- 9290 28 Aug, 2013 [facility] [place] [facility] [address] [id number] [place] [address]- 3405 18 Aug, 2013 [facility] [place] [facility] [address] [id number] [place] [address]- 3697 18 Aug, 2013 [facility] [place] [facility] [address] [id number] [place] [address]- 0819 16 Aug, 2013 [facility] [place] [facility] [address] [id number] [place] [address]- 1244 16 Aug, 2013 [facility] [place] [facility] [address] [id number] [place] [address]- 7640 15 Aug, 2013 [facility] [place] [facility] [address] [id number] [place] [address]- 0542 15 Aug, 2013 [facility] [place] [facility] [address] [id number] [place] [address]- 5229 14 Aug, 2013 [facility] [place] [facility] [address] [id number] [place] [address]- 5576 05 Aug, 2013 [facility] [place] [facility] [address] [id number] [place] [address]- 4768 Aug, [facility] [place] [facility] [address] [id number] [place] [address]- 2707 Aug, [facility] [place] [facility] [address] [id number] [place] [address]- 2597 Aug, [facility] [place] [facility] [address] [id number] [place] 3651 Jul, [facility] [place] [facility] [address] [id number] [place] 0760 Jul, [facility] [place] [facility] [address] [id number] [place] [address]- 8541 Jul, [facility] [place] [facility] [address] [id number] [place] [address]- 4129 Jul, [facility] [place] [facility] [address] [id number] [place] [address]- 5846 Jul, [facility] [place] [facility] [address] [id number] [place] [address]- 9655 Jul, [facility] [place] [facility] [address] [id number] [place] [address]- 5652 Jul, [facility] [place] [facility] [address] [id number] [place] [address]- 8267 Jul, [facility] [place] [facility] [address] [id number] [place] [address]- 3408 Jul, [facility] [place] [facility] [address] [id number] [place] [address]- 0409 Jul, [facility] [place] [facility] [address] [id number] [place] [address]- 5145 Jul, [facility] [place] [facility] [address] [id number] [place] [address]- 9493 Jul, [facility] [place] [facility] [address] [id number] [place] [address]- 0279 Jul, [facility] [place] [facility] [address] [id number] [place] [address]- 3878 Jul, [facility] [place] [facility] [address] [id number] [place] [address]- 2887 Jul, [facility] [place] [facility] [address] [id number] [place] [address]- 2898 Jun, [facility] [place] [facility] [address] [id number] [place] [address]- 3944 Jun, [facility] [place] [facility] [address] [id number] [place] [address]- 1016 Jun, [facility] [place] [facility] [address] [id number] [place] [address]- 7159 Jun, [facility] [address] [id number] [place] [address]- 9266 Jun, [facility] [place] [facility] [address] [id number] [place] [address] Jun, [facility] [address] [id number] [place] [address] May, [facility] [place] [facility] [address] [id number] [place] [address] May, [facility] [address] [id number] [place] [address] May, [facility] [place] [facility] [address] [id number] [place] [address] May, [facility] [address] [id number] [place] [address] May, [facility] [address] [id number] [place] [address] May, [facility] [place] [facility] [address] [id number] [place] [address] May, [facility] [address] [id number] [place] [address] May, [facility] [place] [facility] [address] [id number] [place] [address] May, [facility] [place] [facility] [address] [id number] [place] [address] May, [facility] [place] [facility] [address] [id number] [place] [address] May, [facility] [place] [facility] [address] [id number] [place] [address] May, [facility] [place] [facility] [address] [id number] [place] [address] May, [facility] [address] [id number] [place] [address]- [address] May, [facility] [place] [facility] [address] [id number] [place] [address]- [address] May, [facility] [place] [facility] [address] [id number] [place] [address] Apr, [facility] [place] [facility] [address] [id number] [place] [address] Apr, [facility] [place] [facility] [address] [id number] [place] [address] Apr, [facility] [place] [facility] [address] [id number] [place] [address] Apr, [facility] [place] [facility] [address] [id number] [place] [address]- [address] Apr, [facility] [place] [facility] [address] [id number] [place] [address]- [address] Apr, [facility] [place] [facility] [address] [id number] [place] [address]- [address] Apr, [facility] [place] [facility] [address] [id number] [place] [address]- [address] Apr, [facility] [place] [facility] [address] [id number] [place] [address]- [address] Apr, [facility] [place] [facility] [address] [id number] [place] [address] Apr, [facility] [place] [facility] [address] [id number] [place] [address] Mar, [facility] [place] [facility] [address] [id number] [place] [address] Mar, [facility] [place] [facility] [address] [id number] [place] [address] Mar, [facility] [place] [facility] [address] [id number], [place] [address] Mar, [facility] [address] [id number] [place] [address] Mar, [facility] [place] [facility] [address] [id number], [place] [address] Mar, [facility] [address] [id number] [place] [address] Mar, [facility] [place] [facility] [address] [id number] [place] [address] Mar, [facility] [address] [id number] [place] [address] Mar, [facility] [place] [facility] [address] [id number] [place] [address] Mar, [facility] [address] [id number], [place] [address] Mar, [facility] [place] [facility] [address] [id number], [place] [address] Mar, [facility] [address] [id number] [place] [address]- [address] Mar, [facility] [address] [id number], [place] [address] Mar, [facility] [address] [id number], [place] [address]- [address] 18 Mar, 2013 [facility] [place] [facility] [address] [id number], [place] [address]- [address] 18 Mar, 2013 [facility] [place] [facility] [address] [id number], [place] [address]- [address] 14 Mar, 2013 [facility] [place] [facility] [address] [id number], [place] [address] 14 Mar, 2013 [facility] [place] [facility] [address] [id number], [place] [address] 12 Mar, 2013 [facility] [place] [facility] [address] [id number] [place] [address] Mar, [facility] [place] [facility] [address] [id number] [place] [address]- [address] Mar, [facility] [place] [facility] [address] [id number] [place] [address]- [address] Mar, [facility] [place] [facility] [address] [id number] [place] [address]- [address]40 Mar, [facility] [place] [facility] [address] [id number] [place] [address] Feb, [facility] [place] [facility] [address] [id number] [place] [address]- [address] Feb, [facility] [place] [facility] [address] [id number] [place] [address] Feb, [facility] [place] [facility] [address] [id number] [place] [address]- [address] Feb, [facility] [place] [facility] [address] [id number] [place] [address] 279[address] Feb, [facility] [place] [facility] [address] [id number] [place] [address]- [address] Feb, [facility] [place] [facility] [address] [id number] [place] [address]- [address] Feb, [facility] [place] [facility] [address] [id number] [place] [address]- 46[address] Feb, [facility] [place] [facility] [address] [id number] [place] [address]- [address] Feb, [facility] [facility] [address] [id number] [place] [address] Feb, [facility] [address] [id number] [place] [address] 1392 30 Jan, 2013 [facility] [place] [facility] [address] [id number] [place] [address] 4326 26 Jan, 2013 [facility] [place] [facility] [address] [id number] [place] [address]- 0945 24 Jan, 2013 [facility] [place] [facility] [address] [id number] [place] [address]- [address]235 23 Jan, 2013 [facility] [place] [facility] [address] [id number] [place] [address] Jan, [facility] [place] [facility] [address] [id number] [place] [address]159 Dec, [facility] [place] [facility] [address] [id number] [place] [address]- 8517 Dec, [facility] [address] [id number] [place] [address] 0759 Dec, [facility] [place] [facility] [address] [id number] [place] [address] 6449 Dec, [facility] [place] [facility] [address] [id number] [place] [address] 7[address] Dec, [facility] [place] [facility] [address] [id number] [place] [address]- 3983 Dec, [facility] [place] [facility] [address] [id number] [place] [address]- 2250 Dec, [facility] [place] [facility] [address] [id number] [place] [address]- 0963 Nov, [facility] [address] [id number], [place] [address] 379[address] Nov, [facility] [address] [id number] [place] [address]- 8685 Nov, [facility] [address] [id number] [place] [address]- 1647 Nov, [facility] [address] [id number] [place] [address]- 4147 Nov, [facility] [address] [id number] [place] [address]- 9581 18 Oct, 2012 [facility] [address] [id number] [place] [address]- 5068 14 Oct, 2012 [facility] [address] [id number] [place] [address]- 9315 06 Oct, 2012 [facility] [address] [id number] [place] [address] 2500 September, [facility] [address] [id number] [place] [address]- 7943 September, [facility] [address] [id number] [place] [address]- 6959 September, [facility] [address] [id number] [place] [address] 9728 September, [facility] [address] [id number] [place] [address]- 4433 September, [facility] [address] [id number] [place] [address]- 4863 September, [facility] [address] [id number] [place] [address]- 1130 September, [facility] [address] [id number] [place] [address]- 8096 Aug, [facility] [address] [id number] [place] [address]- 7854 Aug, [facility] [address] [id number] [place] [address]- 7063 Aug, [facility] [address] [id number] [place] [address]- 0522 29 Jul, 2012 [facility] [address] [id number] [place] [address]- 3284 Jul, [facility] [address] [id number] [place] [address]- 6340 Jul, [facility] [address] [id number] [place] [address]- 2264 20 Jul, 2012 [facility] [address] [id number] [place] [address]- 4028 18 Jul, 2012 [facility] [address] [id number] [place] [address]- 8089 18 Jul, 2012 [facility] [address] [id number] [place] [address]- 6642 Jul, [facility] [address] [id number] [place] [address]- 5098 28 Jun, 2012 [facility] [address] [id number] [place] [address]- 1224 Jun, [facility] [address] [id number] [place] [address]- 8862 Jun, [facility] [address] [id number] [place] [address]- 2440 Jun, [facility] [address] [id number] [place] [address]- 4427 15 Jun, 2012 [facility] [address] [id number] [place] [address]- 1138 Jun, [facility] [address] [id number] [place] [address]- 2197 Jun, [facility] [address] [id number] [place] [address]- 2548 Jun, [facility] [address] [id number] [place] [address]- 9854 Jun, [facility] [address] [id number] [place] [address]- 2449 Jun, [facility] [address] [id number] [place] [address]- 3279 May, [facility] [address] [id number] [place] [address]- 1028 22 May, 2012 [facility] [address] [id number] [place] [address]- 6316 17 May, 2012 [facility] [address] [id number] [place] [address]- 3466 17 May, 2012 [facility] [address] [id number] [place] [address]- 2883 15 May, 2012 [facility] [address] [id number] [place] [address]- 5135 07 May, 2012 [facility] [address] [id number] [place] [address] 31 Apr, 2012 [facility] [address] [id number] [place] [address]- 6077 31 Apr, 2012 [facility] [address] [id number] [place] [address]- 5797 Apr, [facility] [address] [id number] [place] [address]- 6210 28 Apr, 2012 [facility] [address] [id number] [place] [address]- 0184 26 Apr, 2012 [facility] [address] [id number] [place] [address]- 7694 20 Apr, 2012 [facility] [address] [id number] [place] [address] 2546 Apr, [facility] [address] [id number] [place] [address]- 2544 29 Mar, 2012 [facility] [address] [id number] [place] [address]- 9558 29 Mar, 2012 [facility] [address] [id number] [place] [address]- 2057 27 Mar, 2012 [facility] [address] [id number] [place] [address]- 8482 Mar, [facility] [address] [id number] [place] [address]- 1802 Mar, [facility] [address] [id number] [place] [address]- 5963 Mar, [facility] [address] [id number] [place] [address]- 6926 Mar, [facility] [address] [id number] [place] [address]- 4070 Mar, [facility] [address] [id number] [place] [address]- 5822 Mar, [facility] [address] [id number] [place] [address]- 3517 Mar, [facility] [address] [facility] [id number] [place] [address]- 8108 Mar, [facility] [address] [id number], [place] [address]- 3573 Mar, [facility] [address] [facility] [id number], [place] [address]- 8943 Mar, [facility] [address] [facility] [id number], [place] [address]- 2654 Mar, [facility] [address] [facility] [id number], [place] [address]- 2543 Mar, [facility] [address] [id number], [place] [address]- 1834 Mar, [facility] [address] [id number], [place] [address]- 3317 Mar, [facility] [address] [id number], [place] [address]- 7690 Feb, [facility] [address] [facility] [id number], [place] [address]- 7566 Feb, [facility] [address] [id number], [place] [address]- 9643 17 Feb, 2012 [facility] [address] [id number] [place] [address]- 2318 17 Feb, 2012 [facility] [address] [id number] [place] [address]- 2126 16 Feb, 2012 [facility] [address] [id number] [place] [address]- 8486 16 Feb, 2012 [facility] [address] [id number] [place] [address]- 4505 Feb, [facility] [address] [id number] [place] [address]- 4847 Feb, [facility] [address] [id number] [place] [address]- 9942 05 Feb, 2012 [facility] [address] [facility] [id number] [place] [address]- 7751 04 Feb, 2012 [facility] [address] [id number] [place] [address]- 4036 02 Feb, 2012 [facility] [address] [facility] [id number] [place] [address]- 5277 27 Jan, 2012 [facility] [address] [facility] [id number] [place] [address]- 9197 25 Jan, 2012 [facility] [address] [id number] [place] [address]- 4926 13 Jan, 2012 [facility] [address] [id number] [place] [address]- 6006 12 Jan, 2012 [facility] [address] [id number] [place] [address]- 1779 07 Jan, 2012 [facility] [address] [facility] [id number] [place] [address]- 1421 31 Dec, 2011 [facility] [address] [facility] [id number] [place] [address]- 1663 24 Dec, 2011 [facility] [address] [id number] [place] [address]- 2257 Dec, [facility] [address] [id number] [place] [address]- 5766 Dec, [facility] [address] [id number] [place] [address] 2546 Dec, [facility] [address] [id number] [place] [address]- 6419 Dec, [facility] [address] [id number] [place] [address]- 6556 Dec, [facility] [address] [id number] [place] [address]- 6153 Dec, [facility] [address] [id number] [place] [address]- 0468 Nov, [facility] [address] [id number] [place] [address]- 6419 Nov, [facility] [address] [id number] [place] [address]- 2311 Nov, [facility] [address] [id number] [place] [address]- 6129 Nov, [facility] [address] [id number] [place] [address]- 9319 Nov, [facility] [address] [id number] [place] [address]- 3364 Oct, [facility] [address] [id number] [place] [address]- 0327 Oct, [facility] [address] [id number] [place] [address]- 9387 September, [facility] [address] [id number] [place] [address]- 6896 September, [facility] [address] [id number] [place] [address]- 5884 September, [facility] [address] [id number] [place] [address]- 0514 September, [facility] [place] [facility] [address] [id number] [place] [address]- 1364 September, [facility] [address] [id number] [place] [address]- 5872 September, [facility] [address] [id number] [place] [address]- 5855 September, [facility] [address] [id number] [place] [address]- 4753 September, [facility] [address] [id number] [place] [address]- 7470 September, [facility] [address] [id number] [place] [address]- 0559 September, [facility] [address] [id number] [place] [address]- 7560 September, [facility] [address] [id number] [place] [address]- 5800 September, [facility] [address] [id number] [place] [address]- 6838 September, [facility] [address] [id number] [place] [address]- 1111 September, [facility] [address] [id number] [place] [address]- 1702 24 Aug, 2011 [facility] [address] [id number] [place] [address]- 7768 Aug, [facility] [address] [id number] [place] [address]- 3726 13 Aug, 2011 [facility] [address] [id number] [place] [address]- 7786 Aug, [facility] [address] [id number] [place] [address]- 1432 23 Jul, 2011 [facility] [address] [id number] [place] [address]- 1036 13 Jul, 2011 [facility] [address] [id number] [place] [address] 2546 13 Jul, 2011 [facility] [facility] [address] [facility] [id number] [place] [address] 2546 28 Jun, [address] [facility] [address] [id number] [id number] 26 Jun, 2011 [facility] [address] [id number] [place] [address]- 6016 13 Jun, 2011 [facility] [address] [id number] [place] [address]- 9366 10 Jun, 2011 [facility] [address] [id number] [place] [address] 2546 07 Jun, 2011 [facility] [address] [id number] [place] [address] 2542 07 Jun, 2011 [facility] [address] [id number] [place] [address]- 0043 03 Jun, 2011 [facility] [address] [id number] [place] [address]- 4384 02 Jun, 2011 [facility] [address] [id number] [place] [address] 2546 May, [facility] [address] [id number] [place] [address] 2543 May, [facility] [address] [id number] [place] [address] 254 May, [facility] [place] [facility] [address] [id number] [place] [address] 2546 May, [facility] [place] [facility] [address] [id number] [place] [address]- 9237 May, [facility] [place] [facility] [address] [id number] [place] [address]- 4331 May, [facility] [address] [id number] [place] [address]- 3876 May, [facility] [place] [facility] [address] [id number] [place] [address] 2546 May, [facility] [place] [facility] [address] [id number] [place] [address] 2540 May, [facility] [address] [id number] [place] [address]- 0243 May, [facility] [address] [id number] [place] [address]- 9126 May, [facility] [address] [id number] [place] [address]- 2598 May, [facility] [address] [id number] [place] [address]- 0063 May, [facility] [address] [id number] [place] [address]- 3912 May, [facility] [address] [id number] [place] [address]- 8949 Apr, [facility] [place] [facility] [address] [id number] [place] [address]- 2546 16 Apr, 2011 [facility] [place] [facility] [address] [id number], [place] [address]- 2546 05 Apr, 2011 [facility] [place] [facility] [address] [id number] [place] [address]- 8466 Mar, [facility] [place] [facility] [address] [id number] [place] [address]- 2546 Mar, [facility] [place] [facility] [address] [id number] [place] [address]- 2546 Feb, [facility] [place] [facility] [address] [id number], [place] [address]- 2280 26 Feb, 2011 [facility] [place] [facility] [address] [id number] [place] [address]- 6586 21 Feb, 2011 [facility] [place] [facility] [address] [id number] [place] [address] 2546 20 Feb, 2011 [facility] [place] [facility] [address] [id number] [place] [address]- 6056 13 Feb, 2011 [facility] [place] [facility] [address] [id number] [place] [address]- 3738 28 Apr, 2010 [facility] [place] [facility] [address] [id number] [place] [address]- 5616 22 Apr, 2010 [facility] [place] [facility] [address] [id number] [place] [address]- 5186 16 Apr, 2010 [facility] [place] [facility] [address] [id number] [place] [address]- 1161 15 Apr, 2010 [facility] [place] [facility] [address] [id number] [place] [address]- 9982 15 Apr, 2010 [facility] [place] [facility] [address] [id number] [place] [address]- 1049 Apr, [facility] [place] [facility] [address] [id number] [place] [address]- 1556 24 Mar, 2010 [facility] [place] [facility] [address] [id number] [place] [address] 2546 17 Mar, 2010 [facility] [place] [facility] [address] [id number] [place] [address] 254 17 Mar, 2010 [facility] [place] [facility] [address] [id number] [place] [address]- 5744 28 Feb, 2010 [facility] [place] [facility] [address] [id number] [place] [address]- 0071 22 Feb, 2010 [facility] [place] [facility] [address] [id number] [place] [address]- 6888 Feb, [facility] [place] [facility] [address] [facility] [id number] [place] [address]- 9936 15 Feb, 2010 [facility] [address] [id number], [place] [address]- 8481 Dec, [facility] [address] [id number], [place] [address]- 3366 Dec, [facility] [address] [id number], [place] [address]- [address] Oct, [facility] [address] [id number], [place] [address]- 3066 Mar, [facility] [address] [id number], [place] [address]- 4185 Mar, [facility] [address] [facility] [id number], [place] [address]- 2509 September, IMMUNIZATIONS No Known Immunizations SOCIAL HISTORY Never Assessed REASON FOR VISIT Controlled Med Refill 08/14/2017 PLAN OF CARE VITAL SIGNS MEDICATIONS Medication Instructions Dosage Frequency Start Date End Date Duration Status Hydrocodone-Acetaminophen 7.5-325 MG Orally every 6 hrs 1 tablet as needed 6h Jul, Aug, Active Chlordiazepoxide HCl 10 MG Orally Three times a day 2 capsules 8h Aug, 28 days Active Acetaminophen-Codeine #3 300-30 MG Orally every [...]
--- OUTSIDE RECORDS SUMMARY | 2017-12-20 13:06 | XMS REPORT ---
Author Author VALERIE ZAVALA 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 Role Phone VALERIE ZAVALA Unavailable PROBLEMS Type Condition ICD9-CM Code USV52-XG Code Onset Dates Condition Status SNOMED Code Problem Generalized anxiety disorder F41.1 Active 34630326 Problem Hypokalemia E87.6 Active 346325362 Problem Right low back pain, with sciatica presence unspecified M54.5 Active 460487299 Problem Post-traumatic stress disorder, chronic F43.12 Active 21057493 Problem Pain in right knee M25.561 Active 60760157 Problem Gastroesophageal reflux disease without esophagitis K21.9 Active 566389140 Problem UTI symptoms R39.9 Active 68174577 Problem Essential hypertension I10 Active 71749916 Problem Anxiety F41.9 Active 50651498 Problem Neuropathy G62.9 Active 193082423 Problem Other chronic pain G89.29 Active 42094540 Problem Generalized abdominal pain R10.84 Active 639218525 Problem Chronic pain G89.29 Active 86761887 Problem Back pain M54.9 Active 367469122 Problem Right foot pain M79.671 Active 21023125 Problem Panic attacks F41.0 Active 058226263 Problem Other emphysema J43.8 Active 29277855 Problem Kidney stones N20.0 Active 88926742 Problem Renal calculus, right N20.0 Active 93381502 Problem Weight decrease R63.4 Active 723404780 Problem Tobacco abuse Z72.0 Active 74587497 Problem Bone pain M89.8X9 Active 21548669 Problem Depression, unspecified depression type F32.9 Active 56233557 Problem Insomnia, unspecified type G47.00 Active 066183542 Problem Pulmonary emphysema, unspecified emphysema type J43.9 Active 46685891 Problem Right upper quadrant abdominal pain R10.11 Active 173631519 Problem Weight loss R63.4 Active 845423806 ALLERGIES No Information ENCOUNTERS Encounter Location Date Diagnosis [facility] [address], [place] [address] Nov, [facility] [id number] [place] [address] 58502- 9370 16 Nov, 2017 Pelvic pain R10.2 ; Acute pyelonephritis N10 and Essential hypertension I10 [facility] [id number] [place] [address] 41868- 9199 28 Oct, 2017 Medicare welcome exam Z00.00 [facility] [id number] [place] [address] 58044- 5987 18 Oct, 2017 Gross hematuria R31.0 ; Urinary tract infection without hematuria, site unspecified N39.0 and Weakness R53.1 [facility] [id number] [address] 3129 13 Oct, 2017 [facility] [id number] [place] [address] 09160- 2288 Oct, [facility] [id number] [place] [address] 52724- 6912 Oct, Medicare welcome exam Z00.00 [facility] [id number] [address] 0100 September, Back pain M54.9 and Right anterior knee pain M25.561 [facility] [id number] [address] 9055 September, [facility] [address], [place] [address] 7527 September, [facility] [id number] [address] 2855 September, Essential hypertension I10 [facility] [address], [place] [address] 2737 September, [facility] [id number] [place] [address] 88447- 7507 September, RLQ abdominal pain R10.31 ; Low back pain M54.5 and Other chronic pain G89.29 [facility] [id number] [place] [address] 28883- 7329 Aug, Medicare welcome exam Z00.00 [facility] [id number] [place] [address] 93105- 1073 Aug, [facility] [address] 09646- 6120 Aug, Acute pyelonephritis N10 and Medicare welcome exam Z00.00 [facility] [id number] [place] [address] 39335 -7314 Aug, Dysuria R30.0 and Acute pyelonephritis N10 [facility] [id number] [place] [address] 65027- 7737 Aug, [facility] [address] [address]- 1955 Aug, [facility] [id number] [place] [address] 84686- 6213 Aug, [facility] [id number] [place] [address] 84504- 4911 Aug, [facility] [id number] [place] [address] 65839- 4804 Jul, [facility] [id number] [place] [address] 68368- 3025 Jul, Renal calculus, right N20.0 and Medicare welcome exam Z00.00 [facility] [id number] [place] [address] 18357 -2481 Jul, Dysuria R30.0 and Renal calculus, right N20.0 [facility] [id number] [place] [address] 29091- 9567 Jul, Medicare welcome exam Z00.00 [place] [address], [place] [address] 3770 13 Jun, 2017 Gastroesophageal reflux disease without esophagitis K21.9 and Generalized abdominal pain R10.84 [place] [facility] [id number] [place] [address] 76497- 4437 09 Jun, 2017 Medicare welcome exam Z00.00 [place] [id number] [place] [address] 97755- 7246 05 Jun, 2017 [place] [id number] [place] [address] 50270- 4747 05 Jun, 2017 Medicare welcome exam Z00.00 and Encounter for screening mammogram for malignant neoplasm of breast Z12.31 [place] [facility] [id number] [place] [address] 84837- 4162 02 Jun, 2017 Chronic pain G89.29 [place] [id number] [place] [address] 51274- 6660 24 May, 2017 [place] [id number] [place] [address] 81790- 9860 May, Pelvic pain R10.2 [place] [id number] [place] [address] 07569- 2863 May, Pelvic pain R10.2 [facility] [place] [id number] [place] [address] 42466 -0740 May, Renal calculus, right N20.0 [place] [id number] [place] [address] 26444- 0211 May, Hematuria, unspecified type R31.9 and Nephrolithiasis N20.0 [facility] [place] [id number] [place] [address] 73387 -2294 May, Dysuria R30.0 and Nephrolithiasis N20.0 [place] [id number] [place] [address] 42389- 3204 May, [facility] [address], [place] [address] May, Abdominal pain R10.9 and Kidney stone N20.0 [facility] [id number] [place] [address] 18663- 9710 May, [facility] [address] [place] [address] 06494- 0358 May, Chronic pain G89.29 and Panic attacks F41.0 [facility] [address] [place] [address] 99394- 5550 May, Urinary tract infection without hematuria, site unspecified N39.0 [facility] [address] [place] [address] 62875- 0225 Apr, Right lower quadrant abdominal pain R10.31 and Abnormal serum lipase level R74.8 [place] [id number] [place] [address] 70495- 0703 Apr, Recurrent urinary tract infection N39.0 [facility] [address] [place] [address] 06589- 7845 Apr, UTI symptoms R39.9 ; Recurrent urinary tract infection N39.0 and Pelvic pain R10.2 [facility] [address] [place] [address] 17211- 5726 Apr, Chronic pain G89.29 and Panic attacks F41.0 [facility] [address] [place] [address] 07099- 1168 Apr, Dysuria R30.0 [facility] [address] [place] [address] 59561- 4066 Apr, [place] [address] [place] [address] 74720- 3896 Apr, Dysuria R30.0 and Urinary tract infection without hematuria , site unspecified N39.0 [facility] [address] [place] [address] 50799- 7905 Mar, UTI symptoms R39.9 [facility] [id number] [place] [address] 03753- 7556 Mar, [place] [id number] [place] [address] 00041- 2012 Mar, Panic attacks F41.0 and Chronic pain G89.29 [place] [address] 57105- 9314 Mar, [place] [id number] [place] [address] 98092- 5121 Mar, Dysuria R30.0 [place] [address] 36528- 4809 Mar, Dysuria R30.0 [place] [address] 63561- 0368 Feb, Chronic pain G89.29 ; Shortness of breath R06.02 ; Weight loss R63.4 ; Encounter for immunization Z23 ; Bone pain M89.8X9 ; Right anterior knee pain M25.561 and Cough R05 [place] [address] 88770- 4220 Feb, Shortness of breath R06.02 [place] [id number] [place] [address] 03773- 5768 Feb, [place] [id number] [place] [address] 59971- 7212 Feb, Panic attacks F41.0 and Chronic pain G89.29 [place] [id number] [place] [address] 68284- 5089 Feb, [place] [address] 58925- 0562 Feb, Panic attacks F41.0 ; Shortness of breath R06.02 and Encounter for immunization Z23 [place] [address] 21214- 5578 Jan, [facility] [id number] [place] [address] 73247- 0468 Jan, Anxiety F41.9 and Chronic pain G89.29 [facility] [id number] [place] [address] 09697- 3833 Dec, Anxiety F41.9 and Chronic pain G89.29 [facility] [address] 95979- 8598 Nov, Chronic pain G89.29 [facility] [id number] [place] [address] 52753- 4382 Nov, Anxiety F41.9 [place] [id number] [place] [address] 97402- 8158 Nov, Chronic pain G89.29 ; Essential hypertension I10 and Other emphysema J43.8 [place] [id number] [place] [address] 44003- 7769 Oct, Anxiety F41.9 [facility] [id number] [place] [address] 34332- 2904 Oct, [place] [id number] [place] [address] 17784- 5883 Oct, Chronic pain G89.29 [facility] [id number] [place] [address] 01423- 4189 September, Recurrent UTI N39.0 ; Neuropathy G62.9 and Anxiety F41.9 [facility] [id number] [place] [address] 69214- 6478 September, [facility] [id number] [place] [address] 00541- 8171 September, Chronic pain G89.29 [facility] [id number] [place] [address] 47723- 0695 September, [facility] [address], [place] [address]- 5885 Aug, Post-traumatic stress disorder, chronic F43.12 ; Chronic urinary tract infection N39.0 ; Gastroesophageal reflux disease without esophagitis K21.9 ; Chronic pain G89.29 ; Essential hypertension I10 and Tobacco abuse Z72.0 [facility] [address], [place] [address] Aug, [facility] [id number] [place] [address] 06707 2546 Aug, Chronic pain G89.29 [facility] [id number] [place] [address] 85859- 1376 Aug, Insomnia, unspecified type G47.00 [facility] [address], [place] [address]- 5296 Aug, [facility] [id number] [place] [address] 15415- 0688 Jul, Chronic pain G89.29 [facility] [address], [place] [address]- 1308 Jul, [facility] [address], [place] [address]- 4931 Jul, [facility] [address], [place] [address]- 7251 Jul, [facility] [address], [place] [address]- 2542 15 Jul, 2016 Recurrent UTI (urinary tract infection) N39.0 [facility] [address], [place] [address]- 2546 14 Jul, 2016 [facility] [address], [place] [address]- 2546 Jun, Chronic pain G89.29 [facility] [address], [place] [address]- 2546 Jun, [facility] [id number] [place] [address] 01209- 6734 Jun, [facility] [address] 68327- 0874 May, Chronic pain G89.29 [place] [id number] [place] [address] 28488- 8757 May, Weight loss R63.4 and Shortness of breath R06.02 [facility] [address] 41992- 6067 May, Chronic pain G89.29 ; Weight loss R63.4 and Tobacco abuse Z72.0 [place] [address] 82942- 1327 May, [place] [id number] [place] [address] 98784- 8806 May, Hypoxia R09.02 [facility] [address] 92908- 9699 May, [facility] [id number] [place] [address] 42821- 4621 May, Pulmonary emphysema, unspecified emphysema type J43.9 [facility] [id number] [place] [address] 37382 -4268 May, [facility] [id number] [place] [address] 15597- 2107 May, [facility] [id number] [place] [address] 34836- 2381 May, [facility] [id number] [place] [address] 69766- 6857 May, Chronic pain G89.29 ; Encounter for immunization Z23 ; Right anterior knee pain M25.561 and Cough R05 [facility] [id number] [place] [address] 51584- 4175 Apr, Chronic pain G89.29 [place] [id number] [place] [address] 85716- 8549 Apr, [facility] [id number] [place] [address] 90946- 5755 Apr, Generalized anxiety disorder F41.1 and Depression, unspecified depression type F32.9 [facility] [id number] [place] [address] 63166- 3200 Apr, Chronic pain G89.29 ; Hypokalemia E87.6 and Insomnia, unspecified type G47.00 [facility] [id number] [place] [address] 68572- 7616 Apr, [facility] [id number] [place] [address] 58316- 7622 Apr, Chronic pain G89.29 [facility] [id number] [place] [address] 83902- 6045 Apr, [facility] [id number] [place] [address] 13252- 1647 Mar, [facility] [id number] [place] [address] 22103- 1574 Mar, Insomnia, unspecified type G47.00 [facility] [id number] [place] [address] 99901- 9022 Mar, Chronic pain G89.29 [facility] [id number] [place] [address] 54155- 0241 Mar, [facility] [id number] [place] [address] 13116- 8327 Feb, [facility] [id number] [place] [address] 74137- 8076 Feb, [facility] [id number] [place] [address] 32621- 6900 Feb, [facility] [id number] [place] [address] 78604- 9692 Feb, [facility] [address], [place] [address]- 3352 Feb, [facility] [id number] [place] [address] 66212- 9319 Jan, [facility] [address] [place] [address] 60869- 8672 Jan, [facility] [id number] [place] [address] 34338- 5679 Jan, [facility] [address] [place] [address] 58783- 3377 13 Jan, 2016 [facility] [id number] [place] [address] 00173- 7993 Jan, [facility] [id number] [place] [address] 09815- 7002 Jan, Chronic pain G89.29 [facility] [id number] [place] [address] 22481- 8096 Jan, Chronic pain G89.29 and Fibromyalgia M79.7 [facility] [id number] [place] [address] 51965- 0829 Dec, Depression, unspecified depression type F32.9 and Generalized anxiety disorder 300.02 [facility] [address] [place] [address] 96925- 6724 Dec, Dysthymia F34.1 ; Insomnia, unspecified type G47.00 and Chronic pain G89.29 [facility] [address], [place] [address]- 8017 Dec, Chronic pain G89.29 [facility] [address] [place] [address] 56532- 3766 Dec, Insomnia, unspecified type G47.00 [facility] [address] [place] [address] 83328- 3422 Dec, Fibromyalgia M79.7 and Chronic pain G89.29 [facility] [address] [facility] [id number] [address]- 5447 Dec, [facility] [address] [facility] [id number] [place] [address] 84280- 3568 Dec, [facility] [address] [facility] [id number] [place] [address] 46391- 6546 Dec, [facility] [address] [facility] [id number] [place] [address] 86224- 0159 Dec, [facility] [address] [facility] [id number] [place] [address] 60380- 6613 Dec, Chronic pain G89.29 [facility] [address] [place] [id number] [place] [address] 79898- 5388 Dec, [facility] [address] [place] [id number] [place] [address] 50383- 8955 Dec, [facility] [address] [facility] [id number] [place] [address] 71312- 2204 Dec, [facility] [address] [id number] [place] [address] 29312- 5350 Dec, Chronic pain G89.29 and Dysthymia F34.1 [facility] [address] [place] [address] 01644- 6864 Nov, [facility] [address] [place] [address] [id number] [place] [address] 16388- 1888 Nov, Hypokalemia E87.6 and Chronic pain G89.29 [facility] [address] [facility] [id number] [place] [address] 89329- 9132 Nov, Back pain M54.9 and Pain in right knee M25.561 [facility] [address] [facility] [id number] [address]- 5866 Nov, [facility] [address] [place] [id number] [place] [address] 31031- 7184 Nov, Chronic pain G89.29 [facility] [address] [place] [address] 06575 2546 Nov, Chronic pain G89.29 ; Weight loss R63.4 ; Bone pain M89.8X9 and Insomnia, unspecified type G47.00 [facility] [id number] [place] [address] 10516- 2006 Nov, Chronic pain G89.29 [facility] [id number] [place] [address] 27153 2546 Nov, Chronic pain G89.29 [facility] [id number] [place] [address] 93769 2546 Oct, Chronic pain G89.29 [facility] [id number] [place] [address] 23151- 4496 Oct, UTI symptoms R39.9 [facility] [id number] [place] [address] 02935 254 Oct, Chronic pain G89.29 [facility] [id number] [place] [address] 98231- 4785 Oct, Chronic pain G89.29 [facility] [id number] [place] [address] 44386 2546 Oct, Chronic pain G89.29 [facility] [id number] [place] [address] 34152 2546 Oct, Right upper quadrant abdominal pain R10.11 [facility] [id number] [place] [address] 89388 2546 Oct, Chronic pain G89.29 [facility] [id number] [place] [address] 81356 2546 Oct, [facility] [id number] [place] [address] 54471- 3671 September, Chronic pain G89.29 [facility] [address], [place] [address]- 0004 September, Dysuria R30.0 and Urinary tract infection without hematuria , site unspecified N39.0 [facility] [address], [place] [address]- 7835 September, [facility] [address], [place] [address]- 5399 September, Dysuria R30.0 [facility] [id number] [place] [address] 23332- 0132 September, Chronic pain G89.29 [facility] [id number] [place] [address] 55115- 5562 September, Chronic pain G89.29 and Essential hypertension I10 [facility] [id number] [place] [address] 98938- 3672 September, [facility] [id number] [place] [address] 68991- 2752 September, [facility] [id number] [place] [address] 45179- 9425 September, [facility] [id number] [place] [address] [id number]- 0175 Aug, UTI symptoms R39.9 [facility] [id number] [address] Aug, Dysuria R30.0 [facility] [id number] [place] [address] Aug, [facility] [id number] [place] [address] Aug, [facility] [id number] [place] [address] Aug, [facility] [id number] [place] [address] Aug, Chronic pain G89.29 [facility] [id number] [place] [address] Aug, Dysthymia F34.1 [facility] [id number] [place] [address] 78577- 8736 Aug, Conjunctivitis, unspecified conjunctivitis type, unspecified laterality H10.9 [facility] [id number] [place] [address] 42469- 3350 31 Jul, 2015 Chronic pain G89.29 ; Back pain M54.9 ; Tobacco abuse Z72.0 and Weight decrease R63.4 [facility] [id number] [place] [address] [id number]- 9726 30 Jul, 2015 [facility] [facility] [id number] [place] [address] 52822- 9306 30 Jul, 2015 [facility] [id number] [place] [address] 62083- 5341 24 Jul, 2015 Chronic pain G89.29 [facility] [id number] [place] [address] 23328- 6680 22 Jul, 2015 [facility] [id number] [place] [address] 11256 2544 21 Jul, 2015 [facility] [id number] [place] [address] 60001- 4534 18 Jul, 2015 [facility] [id number] [place] [address] 39645 2549 17 Jul, 2015 [facility] [id number] [place] [address] 81199 2542 17 Jul, 2015 Chronic pain G89.29 [facility] [id number] [place] [address] 65727 2546 16 Jul, 2015 Chronic pain G89.29 [facility] [id number] [place] [address] 07093- 2823 15 Jul, 2015 [facility] [id number] [place] [address] 53516- 2011 Jul, [facility] [id number] [place] [address] 37431- 0070 Jul, [facility] [id number] [place] [address] 73118- 4859 Jul, [facility] [address] 33869- 0819 Jun, [facility] [address] 79092- 1844 Jun, Depression, unspecified depression type F32.9 [place] [address] 09654- 4269 Jun, Pain in right knee M25.561 [place] [address] 92380- 7214 Jun, Chronic pain G89.29 ; Back pain M54.9 ; Bone pain M89.8X9 and Weight loss R63.4 [facility] [id number] [place] [address] 34683- 5612 Jun, [facility] [id number] [place] [address] 35389- 3774 May, [facility] [id number] [place] [address] 53099- 1448 May, UTI symptoms R39.9 ; Pain in right knee M25.561 ; Right low back pain, with sciatica presence unspecified M54.5 ; Right foot pain M79.671 ; Hypokalemia E87.6 and Screening, lipid Z13.220 [facility] [id number] [place] [address] 43561- 1842 May, [facility] [id number] [place] [address] 47308- 4802 May, [facility] [address] 93205- 3793 Mar, [facility] [id number] [place] [address] 67084- 9146 Mar, [facility] [id number] [place] [address] 39797- 8886 Mar, Hypokalemia E87.6 [facility] [id number] [place] [address] 29840- 6276 Mar, Pain in right leg M79.604 ; Encounter for immunization Z23 ; Pain in right knee M25.561 and Hypokalemia E87.6 [facility] [id number] [place] [address] 75494- 5806 Jan, [facility] [id number] [place] [address] 67765- 3006 Jan, [facility] [id number] [place] [address] 80457- 9841 Jan, Abdominal pain, generalized 789.07 [facility] [id number] [place] [address] 09121- 1424 Jan, Abdominal pain, generalized 789.07 [facility] [id number] [place] [address] 79069- 0681 Dec, [facility] [id number] [place] [address] 33378- 8032 Dec, [facility] [id number] [place] [address] 48523- 1329 Dec, [facility] [id number] [place] [address] 50752- 5714 Nov, Hallux valgus 735.0 and Hammertoe 735.4 [facility] [id number] [place] [address] 06790- 0716 Nov, [facility] [id number] [place] [address] 29611- 1139 Nov, Hallux valgus 735.0 and Hammer toe 735.4 [facility] [address] [address]- 8337 Oct, [facility] [address] 5401 Oct, [facility] [address] [address]- 3637 Oct, Pre-op evaluation V72.84 [facility] [address] [address]- 4121 Oct, [facility] [id number] [place] [address] 324584- 6805 Oct, [facility] [address] [address]- 1077 September, [facility] [id number] [place] [address] 97705- 1668 September, [facility] [address] [address]- 7484 September, Hallux valgus (acquired) 735.0 and Other hammer toe ( acquired) 735.4 [facility] [address] [address]- 6156 Aug, [facility] [address] [place] [address]- 1705 Aug, [facility] [address] [place] [address]- 1249 Jul, [facility] [address] [address]- 3042 Jul, [facility] [address] 3138 Jul, [facility] [address] 3110 Jul, [facility] [place] [facility] [address] [id number] [place] [address]- 8308 Jul, [facility] [place] [facility] [address] [id number] [place] [address]- 8329 Jul, [facility] [place] [facility] [address] [id number] [place] [address]- 9937 Jul, [facility] [place] [facility] [address] [id number] [place] [address]- 9417 Jul, [facility] [place] [facility] [address] [id number] [place] [address]- 2471 Jun, 2014 [facility] [place] [facility] [address] [id number] [place] [address]- 6235 Jun, 2014 [facility] [place] [facility] [address] [id number] [place] [address]- 4393 Jun, 2014 [facility] [place] [facility] [address] [id number] [place] [address]- 9956 Jun, 2014 [facility] [place] [facility] [address] [id number] [place] [address]- 1219 Jun, [facility] [place] [facility] [address] [id number] [place] [address]- 7046 Jun, [facility] [place] [facility] [address] [id number] [place] [address]- 1554 Jun, 2014 [facility] [place] [facility] [address] [id number] [place] [address]- 5361 Jun, 2014 [facility] [place] [facility] [address] [id number] [place] [address]- 5424 Jun, [facility] [place] [facility] [address] [id number] [place] [address]- 6799 Jun, [facility] [place] [facility] [address] [id number] [place] [address]- 2526 May, [facility] [place] [facility] [address] [id number] [place] [address]- 1000 May, [facility] [address] [id number] [place] [address]- 0415 May, [facility] [place] [facility] [address] [id number] [place] [address]- 5229 May, [facility] [place] [facility] [address] [id number] [place] [address]- 2105 May, [facility] [place] [facility] [address] [id number] [place] [address]- 6211 May, [facility] [place] [facility] [address] [id number] [place] [address]- 9429 May, [facility] [place] [facility] [address] [id number] [place] [address]- 3951 May, [facility] [place] [facility] [address] [id number] [place] [address]- 6168 May, [facility] [place] [facility] [address] [id number] [place] [address]- 2106 May, [facility] [place] [facility] [address] [id number] [place] [address]- 7797 May, [facility] [place] [facility] [address] [id number] [place] [address]- 5303 May, [facility] [place] [facility] [address] [id number] [place] [address]- 5180 May, [facility] [place] [facility] [address] [id number] [place] [address]- 5327 May, [facility] [place] [facility] [address] [id number] [place] [address]- 1829 May, [facility] [place] [facility] [address] [id number] [place] [address]- 8163 May, [facility] [place] [facility] [address] [id number] [place] [address]- 5114 May, [facility] [place] [facility] [address] [id number] [place] [address]- 1714 May, [facility] [place] [facility] [address] [id number] [place] [address]- 1734 Apr, [facility] [place] [facility] [address] [id number] [place] 6944 Apr, [facility] [place] [facility] [address] [id number] [place] [address]- 6026 Apr, [facility] [place] [facility] [address] [id number] [place] [address]- 3857 Apr, [facility] [place] [facility] [address] [id number] [place] [address]- 2346 Apr, [facility] [place] [facility] [address] [id number] [place] [address]- 0499 Apr, [facility] [place] [facility] [address] [id number] [place] [address]- 0955 Apr, [facility] [place] [facility] [address] [id number] [place] [address]- 9189 Apr, [facility] [place] [facility] [address] [id number] [place] [address]- 5395 Apr, [facility] [place] [facility] [address] [id number] [place] [address]- 1294 Mar, [facility] [place] [facility] [address] [id number] [place] [address]- 1816 Mar, [facility] [place] [facility] [address] [id number] [place] [address]- 0442 Mar, [facility] [place] [facility] [address] [id number] [place] [address]- 9661 Mar, [facility] [place] [facility] [address] [id number] [place] [address]- 5571 Mar, [facility] [place] [facility] [address] [id number], [place] [address]- 0376 Feb, 2013 [facility] [place] [facility] [address] [id number] [place] [address]- 9647 Feb, 2013 [facility] [place] [facility] [address] [id number] [place] 3671 Feb, 2013 [facility] [place] [facility] [address] [id number] [place] [address]- 4593 Feb, 2013 [facility] [place] [facility] [address] [id number] [place] [address]- 0409 Feb, 2013 [facility] [place] [facility] [address] [id number] [place] [address]- 7918 Feb, 2013 [facility] [place] [facility] [address] [id number] [place] [address]- 3306 Feb, 2013 [facility] [place] [facility] [address] [id number], [place] [address]- 6277 Feb, 2013 [facility] [place] [facility] [address] [id number], [place] [address]- 3900 Feb, 2013 [facility] [place] [facility] [address] [id number], [place] [address]- 0534 Feb, 2013 [facility] [place] [facility] [address] [id number], [place] [address]- 3345 Feb, 2013 [facility] [place] [facility] [address] [id number], [place] [address]- 4978 Feb, 2013 [facility] [place] [facility] [address] [id number], [place] [address]- 0760 Feb, 2013 [facility] [place] [facility] [address] [id number], [place] [address]- 1551 Feb, 2013 [facility] [place] [facility] [address] [id number], [place] [address]- 7780 Feb, 2013 [facility] [place] [facility] [address] [id number], [place] [address]- 9956 Feb, 2013 [facility] [place] [facility] [address] [id number] [place] [address]- 9619 23 Jan, 2013 [facility] [place] [facility] [address] [id number] [place] [address]- 1046 23 Jan, 2013 [facility] [place] [facility] [address] [id number] [place] [address]- 5456 20 Jan, 2013 [facility] [place] [facility] [address] [id number] [place] [address]- 7956 19 Jan, 2013 [facility] [place] [facility] [address] [id number] [place] [address]- 2548 11 Jan, 2013 [facility] [place] [facility] [address] [id number] [place] [address]- 6674 11 Jan, 2013 [facility] [place] [facility] [address] [id number] [place] [address]- 9100 Jan, [facility] [place] [facility] [address] [id number] [place] [address]- 6372 Jan, 2013 [facility] [place] [facility] [address] [id number] [place] [address]- 2539 Dec, [facility] [place] [facility] [address] [id number] [place] [address]- 0140 Dec, [facility] [place] [facility] [address] [id number] [place] [address]- 6739 Nov, [facility] [place] [facility] [address] [id number] [place] [address]- 5255 Nov, [facility] [place] [facility] [address] [id number] [place] [address]- 5361 Nov, [facility] [place] [facility] [address] [id number] [place] [address]- 1720 Nov, [facility] [place] [facility] [address] [id number] [place] [address]- 0742 Nov, [facility] [place] [facility] [address] [id number] [place] [address]- 5983 Nov, [facility] [place] [facility] [address] [id number] [place] [address]- 7739 Nov, [facility] [place] [facility] [address] [id number] [place] [address]- 7069 Nov, [facility] [place] [facility] [address] [id number] [place] [address]- 6849 Nov, [facility] [place] [facility] [address] [id number] [place] [address]- 5588 Oct, [facility] [place] [facility] [address] [id number] [place] [address]- 3981 Oct, [facility] [place] [facility] [address] [id number] [place] [address]- 8098 Oct, [facility] [place] [facility] [address] [id number] [place] [address]- 7947 Oct, [facility] [place] [facility] [address] [id number] [place] [address]- 5388 Oct, [facility] [place] [facility] [address] [id number] [place] [address]- 1722 Oct, [facility] [place] [facility] [address] [id number] [place] [address]- 0020 September, [facility] [place] [facility] [address] [id number] [place] [address]- 3069 September, [facility] [place] [facility] [address] [id number] [place] [address]- 5988 September, [facility] [place] [facility] [address] [id number] [place] [address]- 8228 September, [facility] [place] [facility] [address] [id number] [place] [address]- 8266 September, [facility] [place] [facility] [address] [id number] [place] [address]- 4740 September, [facility] [place] [facility] [address] [id number] [place] [address]- 3106 September, [facility] [address] [id number] [place] [address]- 6107 September, [facility] [place] [facility] [address] [id number] [place] [address]- 9177 September, [facility] [place] [facility] [address] [id number] [place] [address]- 0470 September, [facility] [place] [facility] [address] [id number] [place] [address]- 3784 September, [facility] [place] [facility] [address] [id number] [place] [address]- 2787 September, [facility] [place] [facility] [address] [id number] [place] [address]- 2044 September, [facility] [place] [facility] [address] [id number] [place] [address]- 2919 September, [facility] [place] [facility] [address] [id number] [place] [address]- 9044 September, [facility] [place] [facility] [address] [id number] [place] [address]- 0991 September, [facility] [place] [facility] [address] [id number] [place] [address]- 7391 September, [facility] [place] [facility] [address] [id number] [place] [address]- 4850 September, [facility] [place] [facility] [address] [id number] [place] [address]- 7813 September, [facility] [place] [facility] [address] [id number] [place] 4308 September, [facility] [place] [facility] [address] [id number] [place] [address]- 2024 Aug, [facility] [place] [facility] [address] [id number] [place] [address]- 5283 Aug, [facility] [place] [facility] [address] [id number] [place] [address]- 5465 28 Aug, 2013 [facility] [place] [facility] [address] [id number] [place] [address]- 3325 28 Aug, 2013 [facility] [place] [facility] [address] [id number] [place] [address]- 1258 18 Aug, 2013 [facility] [place] [facility] [address] [id number] [place] [address]- 3107 18 Aug, 2013 [facility] [place] [facility] [address] [id number] [place] [address]- 9212 16 Aug, 2013 [facility] [place] [facility] [address] [id number] [place] [address]- 2629 16 Aug, 2013 [facility] [place] [facility] [address] [id number] [place] [address]- 7580 15 Aug, 2013 [facility] [place] [facility] [address] [id number] [place] [address]- 0471 15 Aug, 2013 [facility] [place] [facility] [address] [id number] [place] [address]- 9910 14 Aug, 2013 [facility] [place] [facility] [address] [id number] [place] [address]- 4708 05 Aug, 2013 [facility] [place] [facility] [address] [id number] [place] [address]- 0165 Aug, [facility] [place] [facility] [address] [id number] [place] [address]- 2254 Aug, [facility] [place] [facility] [address] [id number] [place] [address]- 1504 Aug, [facility] [place] [facility] [address] [id number] [place] 5133 Jul, [facility] [place] [facility] [address] [id number] [place] 9614 Jul, [facility] [place] [facility] [address] [id number] [place] [address]- 7967 Jul, [facility] [place] [facility] [address] [id number] [place] [address]- 5056 Jul, [facility] [place] [facility] [address] [id number] [place] [address]- 8152 Jul, [facility] [place] [facility] [address] [id number] [place] [address]- 4968 Jul, [facility] [place] [facility] [address] [id number] [place] [address]- 9975 Jul, [facility] [place] [facility] [address] [id number] [place] [address]- 8689 Jul, [facility] [place] [facility] [address] [id number] [place] [address]- 1283 Jul, [facility] [place] [facility] [address] [id number] [place] [address]- 5970 Jul, [facility] [place] [facility] [address] [id number] [place] [address]- 8857 Jul, [facility] [place] [facility] [address] [id number] [place] [address]- 7203 Jul, [facility] [place] [facility] [address] [id number] [place] [address]- 4929 Jul, [facility] [place] [facility] [address] [id number] [place] [address]- 3741 Jul, [facility] [place] [facility] [address] [id number] [place] [address]- 0365 Jul, [facility] [place] [facility] [address] [id number] [place] [address]- 0357 Jun, [facility] [place] [facility] [address] [id number] [place] [address]- 9622 Jun, [facility] [place] [facility] [address] [id number] [place] [address]- 2754 Jun, [facility] [place] [facility] [address] [id number] [place] [address]- 8173 Jun, [facility] [address] [id number] [place] [address]- 8786 Jun, [facility] [place] [facility] [address] [id number] [place] [address]- 5336 Jun, [facility] [address] [id number] [place] [address]- 3156 May, [facility] [place] [facility] [address] [id number] [place] [address]- 6080 May, [facility] [address] [id number] [place] [address]- 5564 May, [facility] [place] [facility] [address] [id number] [place] [address]- 8132 May, [facility] [address] [id number] [place] [address]- 9877 May, [facility] [address] [id number] [place] [address]- 1908 May, [facility] [place] [facility] [address] [id number] [place] [address] May, [facility] [address] [id number] [place] [address] May, [facility] [place] [facility] [address] [id number] [place] [address] May, [facility] [place] [facility] [address] [id number] [place] [address] May, [facility] [place] [facility] [address] [id number] [place] [address] May, [facility] [place] [facility] [address] [id number] [place] [address] May, [facility] [place] [facility] [address] [id number] [place] [address] May, [facility] [address] [id number] [place] [address] May, [facility] [place] [facility] [address] [id number] [place] [address] May, [facility] [place] [facility] [address] [id number] [place] [address] Apr, [facility] [place] [facility] [address] [id number] [place] [address] Apr, [facility] [place] [facility] [address] [id number] [place] [address] Apr, [facility] [place] [facility] [address] [id number] [place] [address] Apr, [facility] [place] [facility] [address] [id number] [place] [address] Apr, [facility] [place] [facility] [address] [id number] [place] [address] Apr, [facility] [place] [facility] [address] [id number] [place] [address] Apr, [facility] [place] [facility] [address] [id number] [place] [address] Apr, [facility] [place] [facility] [address] [id number] [place] [address] Apr, [facility] [place] [facility] [address] [id number] [place] [address] Apr, [facility] [place] [facility] [address] [id number] [place] [address] Mar, [facility] [place] [facility] [address] [id number] [place] [address] Mar, [facility] [place] [facility] [address] [id number] [place] [address] Mar, [facility] [place] [facility] [address] [id number], [place] [address] Mar, [facility] [address] [id number] [place] [address] Mar, [facility] [place] [facility] [address] [id number], [place] [address] Mar, [facility] [address] [id number] [place] [address] Mar, [facility] [place] [facility] [address] [id number] [place] [address] Mar, [facility] [address] [id number] [place] [address] Mar, [facility] [place] [facility] [address] [id number] [place] [address]- [address] Mar, [facility] [address] [id number], [place] [address] Mar, [facility] [place] [facility] [address] [id number], [place] [address] Mar, [facility] [address] [id number] [place] [address] Mar, [facility] [address] [id number], [place] [address] Mar, [facility] [address] [id number], [place] [address] 18 Mar, 2013 [facility] [place] [facility] [address] [id number], [place] [address]- [address] 18 Mar, 2013 [facility] [place] [facility] [address] [id number], [place] [address]- [address] 14 Mar, 2013 [facility] [place] [facility] [address] [id number], [place] [address] 14 Mar, 2013 [facility] [place] [facility] [address] [id number], [place] [address] 12 Mar, 2013 [facility] [place] [facility] [address] [id number] [place] [address] Mar, [facility] [place] [facility] [address] [id number] [place] [address] Mar, [facility] [place] [facility] [address] [id number] [place] [address] Mar, [facility] [place] [facility] [address] [id number] [place] [address] Mar, [facility] [place] [facility] [address] [id number] [place] [address] Feb, [facility] [place] [facility] [address] [id number] [place] [address] Feb, [facility] [place] [facility] [address] [id number] [place] [address] Feb, [facility] [place] [facility] [address] [id number] [place] [address] Feb, [facility] [place] [facility] [address] [id number] [place] [address]- [address] Feb, [facility] [place] [facility] [address] [id number] [place] [address]- [address] Feb, [facility] [place] [facility] [address] [id number] [place] [address] Feb, [facility] [place] [facility] [address] [id number] [place] [address] Feb, [facility] [place] [facility] [address] [id number] [place] [address]- [address] Feb, [facility] [place] [facility] [address] [id number] [place] [address]- 8612 Feb, [facility] [place] [facility] [address] [id number] [place] [address]- 8468 30 Jan, 2013 [facility] [place] [facility] [address] [id number] [place] [address]- [address] 26 Jan, 2013 [facility] [place] [facility] [address] [id number] [place] [address] 24 Jan, 2013 [facility] [place] [facility] [address] [id number] [place] [address]- [address] 23 Jan, 2013 [facility] [place] [facility] [address] [id number] [place] [address] Jan, [facility] [place] [facility] [address] [id number] [place] [address] Dec, [facility] [place] [facility] [address] [id number] [place] [address] Dec, [facility] [place] [facility] [address] [id number] [place] [address]- [address] Dec, [facility] [place] [facility] [address] [id number] [place] [address]- [address] Dec, [facility] [place] [facility] [address] [id number] [place] [address] Dec, [facility] [place] [facility] [address] [id number] [place] [address] Dec, [facility] [place] [facility] [address] [id number] [place] [address] Dec, [facility] [place] [facility] [address] [id number] [place] [address] Nov, [facility] [place] [facility] [address] [id number], [place] [address] Nov, [facility] [place] [facility] [address] [id number] [place] [address] Nov, [facility] [place] [facility] [address] [id number] [place] [address] 2851 Nov, [facility] [place] [facility] [address] [id number] [place] [address] 4583 Nov, [facility] [place] [facility] [address] [id number] [place] [address] 8627 18 Oct, 2012 [facility] [address] [id number] [place] [address]77 14 Oct, 2012 [facility] [address] [id number] [place] [address]- 6936 06 Oct, 2012 [facility] [address] [id number] [place] [address] 1447 September, [facility] [address] [id number] [place] [address] 2368 September, [facility] [address] [id number] [place] [address] 8527 September, [facility] [address] [id number] [place] [address] 96[address] September, [facility] [address] [id number] [place] [address]- 9730 September, [facility] [address] [id number] [place] [address] 6970 September, [facility] [address] [id number] [place] [address] 8951 September, [facility] [address] [id number] [place] [address]- 9064 Aug, [facility] [address] [id number] [place] [address] 7804 Aug, [facility] [address] [id number] [place] [address] 1819 Aug, [facility] [place] [facility] [address] [id number] [place] [address]- 6584 29 Jul, 2012 [facility] [place] [facility] [address] [id number] [place] [address]- 5684 Jul, [facility] [address] [id number] [place] [address]- 7193 Jul, [facility] [place] [facility] [address] [id number] [place] [address]- 2492 20 Jul, 2012 [facility] [place] [facility] [address] [id number] [place] [address]- 3982 18 Jul, 2012 [facility] [place] [facility] [address] [id number] [place] [address]- 2985 18 Jul, 2012 [facility] [place] [facility] [address] [id number] [place] [address]- 5177 Jul, [facility] [address] [id number] [place] [address]- 5132 28 Jun, 2012 [facility] [place] [facility] [address] [id number] [place] [address]- 5118 Jun, [facility] [address] [id number] [place] [address]- 3154 Jun, [facility] [place] [facility] [address] [id number] [place] [address]- 8688 Jun, [facility] [place] [facility] [address] [id number] [place] [address]- 1150 15 Jun, 2012 [facility] [place] [facility] [address] [id number] [place] [address]- 2010 Jun, [facility] [place] [facility] [address] [id number] [place] [address]- 5029 Jun, [facility] [place] [facility] [address] [id number] [place] [address]- 2540 Jun, [facility] [place] [facility] [address] [id number] [place] [address]- 2104 Jun, [facility] [place] [facility] [address] [id number] [place] [address]- 2891 Jun, [facility] [place] [facility] [address] [id number] [place] [address]- 7752 May, [facility] [place] [facility] [address] [id number] [place] [address]- 0369 22 May, 2012 [facility] [address] [id number] [place] [address]- 7446 17 May, 2012 [facility] [address] [id number] [place] [address]- 1566 17 May, 2012 [facility] [address] [id number] [place] [address]- 4376 15 May, 2012 [facility] [address] [id number] [place] [address]- 4494 07 May, 2012 [facility] [address] [id number] [place] [address] 31 Apr, 2012 [facility] [address] [id number] [place] [address]- 2889 31 Apr, 2012 [facility] [address] [id number] [place] [address]- 3533 Apr, [facility] [address] [id number] [place] [address]- 7111 28 Apr, 2012 [facility] [address] [id number] [place] [address]- 8811 26 Apr, 2012 [facility] [address] [id number] [place] [address]- 2200 20 Apr, 2012 [facility] [address] [id number] [place] [address] 2546 Apr, [facility] [address] [id number] [place] [address]- 2545 29 Mar, 2012 [facility] [address] [id number] [place] [address]- 2387 29 Mar, 2012 [facility] [address] [id number] [place] [address]- 6909 27 Mar, 2012 [facility] [address] [id number] [place] [address]- 1800 Mar, [facility] [place] [facility] [address] [id number] [place] [address]- 0040 Mar, [facility] [place] [facility] [address] [id number] [place] [address]- 6727 Mar, [facility] [place] [facility] [address] [id number] [place] [address]- 9095 Mar, [facility] [place] [facility] [address] [id number] [place] [address]- 7639 Mar, [facility] [place] [facility] [address] [id number] [place] [address]- 5066 Mar, [facility] [place] [facility] [address] [id number] [place] [address]- 0142 Mar, [facility] [place] [facility] [address] [facility] [id number] [place] [address]- 9318 Mar, [facility] [place] [facility] [address] [id number], [place] [address]- 6471 Mar, [facility] [place] [facility] [address] [facility] [id number], [place] [address]- 8834 Mar, [facility] [place] [facility] [address] [facility] [id number], [place] [address]- 6437 Mar, [facility] [place] [facility] [address] [facility] [id number], [place] [address]- 2136 Mar, [facility] [place] [facility] [address] [id number], [place] [address]- 1115 Mar, [facility] [place] [facility] [address] [id number], [place] [address]- 7559 Mar, [facility] [place] [facility] [address] [id number], [place] [address]- 3721 Feb, [facility] [place] [facility] [address] [facility] [id number], [place] [address]- 7821 Feb, [facility] [place] [facility] [address] [id number], [place] [address]- 8359 17 Feb, 2012 [facility] [place] [facility] [address] [id number] [place] [address]- 6132 17 Feb, 2012 [facility] [place] [facility] [address] [id number] [place] [address]- 5396 16 Feb, 2012 [facility] [place] [facility] [address] [id number] [place] [address]- 9086 16 Feb, 2012 [facility] [place] [facility] [address] [id number] [place] [address]- 0276 Feb, [facility] [place] [facility] [address] [id number] [place] [address]- 8098 Feb, [facility] [place] [facility] [address] [id number] [place] [address]- 2545 05 Feb, 2012 [facility] [place] [facility] [address] [facility] [id number] [place] [address]- 7339 04 Feb, 2012 [facility] [place] [facility] [address] [id number] [place] [address]- 5804 02 Feb, 2012 [facility] [place] [facility] [address] [facility] [id number] [place] [address]- 8733 27 Jan, 2012 [facility] [place] [facility] [address] [facility] [id number] [place] [address]- 6500 25 Jan, 2012 [facility] [place] [facility] [address] [id number] [place] [address]- 0286 13 Jan, 2012 [facility] [place] [facility] [address] [id number] [place] [address]- 3011 12 Jan, 2012 [facility] [place] [facility] [address] [id number] [place] [address]- 6177 07 Jan, 2012 [facility] [place] [facility] [address] [facility] [id number] [place] [address]- 0992 31 Dec, 2011 [facility] [place] [facility] [address] [facility] [id number] [place] [address]- 5607 24 Dec, 2011 [facility] [place] [facility] [address] [id number] [place] [address]- 3535 Dec, [facility] [place] [facility] [address] [id number] [place] [address]- 9699 Dec, [facility] [place] [facility] [address] [id number] [place] [address] 2546 Dec, [facility] [place] [facility] [address] [id number] [place] [address]- 8939 Dec, [facility] [place] [facility] [address] [id number] [place] [address]- 5067 Dec, [facility] [place] [facility] [address] [id number] [place] [address]- 6953 Dec, [facility] [place] [facility] [address] [id number] [place] [address]- 9279 Nov, [facility] [place] [facility] [address] [id number] [place] [address]- 8942 Nov, [facility] [place] [facility] [address] [id number] [place] [address]- 8093 Nov, [facility] [place] [facility] [address] [id number] [place] [address]- 6304 Nov, [facility] [place] [facility] [address] [id number] [place] [address]- 0300 Nov, [facility] [place] [facility] [address] [id number] [place] [address]- 7719 Oct, [facility] [place] [facility] [address] [id number] [place] [address]- 3482 Oct, [facility] [place] [facility] [address] [id number] [place] [address]- 2067 September, [facility] [place] [facility] [address] [id number] [place] [address]- 6956 September, [facility] [place] [facility] [address] [id number] [place] [address]- 1723 September, [facility] [address] [id number] [place] [address]- 7638 September, [facility] [place] [facility] [address] [id number] [place] [address]- 2158 September, [facility] [place] [facility] [address] [id number] [place] [address]- 0275 September, [facility] [place] [facility] [address] [id number] [place] [address]- 3994 September, [facility] [place] [facility] [address] [id number] [place] [address]- 8818 September, [facility] [place] [facility] [address] [id number] [place] [address]- 3523 September, [facility] [place] [facility] [address] [id number] [place] [address]- 9040 September, [facility] [place] [facility] [address] [id number] [place] [address]- 3468 September, [facility] [place] [facility] [address] [id number] [place] [address]- 7175 September, [facility] [place] [facility] [address] [id number] [place] [address]- 1758 September, [facility] [place] [facility] [address] [id number] [place] [address]- 5495 September, [facility] [place] [facility] [address] [id number] [place] [address]- 9564 24 Aug, 2011 [facility] [place] [facility] [address] [id number] [place] [address]- 9699 Aug, [facility] [place] [facility] [address] [id number] [place] [address]- 9422 13 Aug, 2011 [facility] [place] [facility] [address] [id number] [place] [address]- 5443 Aug, [facility] [place] [facility] [address] [id number] [place] [address]- 6049 23 Jul, 2011 [facility] [address] [id number] [place] [address]- 1706 13 Jul, 2011 [facility] [address] [id number] [place] [address] 2546 13 Jul, 2011 [facility] [place] [facility] [address] [facility] [id number] [place] [address] 2546 28 Jun, [address] [facility] [address] [id number] [id number] 26 Jun, 2011 [facility] [address] [id number] [place] [address]- 9026 13 Jun, 2011 [facility] [address] [id number] [place] [address]- 4976 10 Jun, 2011 [facility] [address] [id number] [place] [address] 2546 07 Jun, 2011 [facility] [address] [id number] [place] [address] 2548 07 Jun, 2011 [facility] [address] [id number] [place] [address]- 0161 03 Jun, 2011 [facility] [address] [id number] [place] [address]- 9644 02 Jun, 2011 [facility] [address] [id number] [place] [address] 2546 May, [facility] [address] [id number] [place] [address] 254 May, [facility] [place] [facility] [address] [id number] [place] [address] 2547 May, [facility] [place] [facility] [address] [id number] [place] [address] 2546 May, [facility] [place] [facility] [address] [id number] [place] [address]- 0980 May, [facility] [place] [facility] [address] [id number] [place] [address]- 7768 May, [facility] [address] [id number] [place] [address]- 4626 May, [facility] [place] [facility] [address] [id number] [place] [address] 2546 May, [facility] [place] [facility] [address] [id number] [place] [address] 2541 May, [facility] [address] [id number] [place] [address]- 8127 May, [facility] [address] [id number] [place] [address]- 7096 May, [facility] [address] [id number] [place] [address]- 6396 May, [facility] [address] [id number] [place] [address]- 5826 May, [facility] [address] [id number] [place] [address]- 0043 May, [facility] [address] [id number] [place] [address]- 1305 Apr, [facility] [place] [facility] [address] [id number] [place] [address]- 2546 16 Apr, 2011 [facility] [place] [facility] [address] [id number], [place] [address]- 2546 05 Apr, 2011 [facility] [place] [facility] [address] [id number] [place] [address]- 6318 Mar, [facility] [place] [facility] [address] [id number] [place] [address]- 2546 Mar, [facility] [place] [facility] [address] [id number] [place] [address]- 2546 Feb, [facility] [place] [facility] [address] [id number], [place] [address]- 4610 26 Feb, 2011 [facility] [place] [facility] [address] [id number] [place] [address]- 4236 21 Feb, 2011 [facility] [place] [facility] [address] [id number] [place] [address] 2546 20 Feb, 2011 [facility] [place] [facility] [address] [id number] [place] [address]- 3946 13 Feb, 2011 [facility] [place] [facility] [address] [id number] [place] [address]- 1865 28 Apr, 2010 [facility] [place] [facility] [address] [id number] [place] [address]- 2596 22 Apr, 2010 [facility] [place] [facility] [address] [id number] [place] [address]- 9286 16 Apr, 2010 [facility] [place] [facility] [address] [id number] [place] [address]- 4637 15 Apr, 2010 [facility] [place] [facility] [address] [id number] [place] [address]- 2702 15 Apr, 2010 [facility] [place] [facility] [address] [id number] [place] [address]- 8195 Apr, [facility] [place] [facility] [address] [id number] [place] [address]- 0244 24 Mar, 2010 [facility] [place] [facility] [address] [id number] [place] [address] 2546 17 Mar, 2010 [facility] [place] [facility] [address] [id number] [place] [address] 2541 17 Mar, 2010 [facility] [place] [facility] [address] [id number] [place] [address]- 7613 28 Feb, 2010 [facility] [place] [facility] [address] [id number] [place] [address]- 9958 22 Feb, 2010 [facility] [place] [facility] [address] [id number] [place] [address]- 6729 Feb, [facility] [place] [facility] [address] [id number] [place] [address]- 4089 15 Feb, 2010 [facility] [address] [id number], [place] [address]- 2211 18 Dec, 2009 [facility] [address] [id number], [place] [address]- 1495 Dec, [facility] [address] [id number], [place] [address]- 4363 Oct, [facility] [id number], [place] [address]- 7533 Mar, [facility] [id number], [place] [address]- 8688 Mar, [facility] [address] [id number], [place] [address]- 4026 September, IMMUNIZATIONS No Known Immunizations SOCIAL HISTORY Never Assessed REASON FOR VISIT BP Concerns PLAN OF CARE VITAL SIGNS MEDICATIONS No [...]
[2017-12-20] MEDS ORDERED: NS IV 1000 ML 1,000 ML IV ONE (13:07)
--- OUTSIDE RECORDS SUMMARY | 2017-12-20 13:07 | XMS REPORT ---
Author Author VALERIE ZAVALA [facility] Address [address] [place] [address] Care Team Providers Care Exercise Equipment Repair Technician Name Role Phone VALERIE ZAVALA Unavailable PROBLEMS Type Condition ICD9-CM Code MYH02-LJ Code Onset Dates Condition Status SNOMED Code Problem Generalized anxiety disorder F41.1 Active 05105535 Problem Hypokalemia E87.6 Active 818681426 Problem Right low back pain, with sciatica presence unspecified M54.5 Active 765179520 Problem Post-traumatic stress disorder, chronic F43.12 Active 95647093 Problem Pain in right knee M25.561 Active 78723303 Problem Gastroesophageal reflux disease without esophagitis K21.9 Active 654030487 Problem UTI symptoms R39.9 Active 29377185 Problem Essential hypertension I10 Active 85892490 Problem Anxiety F41.9 Active 45385041 Problem Neuropathy G62.9 Active 868230777 Problem Other chronic pain G89.29 Active 06520039 Problem Generalized abdominal pain R10.84 Active 966970856 Problem Chronic pain G89.29 Active 85561117 Problem Back pain M54.9 Active 582189048 Problem Right foot pain M79.671 Active 96814533 Problem Panic attacks F41.0 Active 486029645 Problem Other emphysema J43.8 Active 29375347 Problem Kidney stones N20.0 Active 36094417 Problem Renal calculus, right N20.0 Active 46565827 Problem Weight decrease R63.4 Active 854462498 Problem Tobacco abuse Z72.0 Active 19033513 Problem Bone pain M89.8X9 Active 75135936 Problem Depression, unspecified depression type F32.9 Active 67683519 Problem Insomnia, unspecified type G47.00 Active 946133008 Problem Pulmonary emphysema, unspecified emphysema type J43.9 Active 15724332 Problem Right upper quadrant abdominal pain R10.11 Active 359161548 Problem Weight loss R63.4 Active 175381603 ALLERGIES No Information ENCOUNTERS Encounter Location Date Diagnosis [facility] [address] [address] Nov, [facility] [id number] [place] [address] 80449- 5488 16 Nov, 2017 Pelvic pain R10.2 ; Acute pyelonephritis N10 and Essential hypertension I10 [facility] [id number] [place] [address] 02489- 7308 28 Oct, 2017 Medicare welcome exam Z00.00 [facility] [id number] [place] [address] 71487- 9942 18 Oct, 2017 Gross hematuria R31.0 ; Urinary tract infection without hematuria, site unspecified N39.0 and Weakness R53.1 [facility] [id number] [address] 6979 13 Oct, 2017 [facility] [id number] [place] [address] 48183- 3431 Oct, [facility] [id number] [place] [address] 07162- 3264 Oct, Medicare welcome exam Z00.00 [facility] [id number] [address] 1355 September, Back pain M54.9 and Right anterior knee pain M25.561 [facility] [id number] [address] 7871 September, [facility] [address] [address] 0557 September, [facility] [id number] [address] 0780 September, Essential hypertension I10 [facility] [address], [place] [address] 7798 September, [facility] [id number] [place] [address] 38861- 0106 September, RLQ abdominal pain R10.31 ; Low back pain M54.5 and Other chronic pain G89.29 [facility] [id number] [place] [address] 70253- 6634 Aug, Medicare welcome exam Z00.00 [facility] [id number] [place] [address] 63030- 4320 Aug, [facility] [address] 19884- 6438 Aug, Acute pyelonephritis N10 and Medicare welcome exam Z00.00 [facility] [id number] [place] [address] 48420 -6910 Aug, Dysuria R30.0 and Acute pyelonephritis N10 [facility] [id number] [place] [address] 66620- 5584 Aug, [facility] [address] 91304- 1086 Aug, [facility] [id number] [place] [address] 75731- 0074 Aug, [facility] [id number] [place] [address] 24989- 1357 Aug, [facility] [id number] [place] [address] 85968- 6381 Jul, [facility] [id number] [place] [address] 81883- 8297 Jul, Renal calculus, right N20.0 and Medicare welcome exam Z00.00 [facility] [id number] [place] [address] 95136 -3258 Jul, Dysuria R30.0 and Renal calculus, right N20.0 [facility] [id number] [place] [address] 33578- 8565 Jul, Medicare welcome exam Z00.00 [place] [address], [place] [address] 0904 13 Jun, 2017 Gastroesophageal reflux disease without esophagitis K21.9 and Generalized abdominal pain R10.84 [facility] [id number] [place] [address] 92665- 1085 09 Jun, 2017 Medicare welcome exam Z00.00 [facility] [id number] [place] [address] 95289- 8478 05 Jun, 2017 [facility] [id number] [place] [address] 75558- 2441 05 Jun, 2017 Medicare welcome exam Z00.00 and Encounter for screening mammogram for malignant neoplasm of breast Z12.31 [facility] [id number] [place] [address] 25546- 1140 02 Jun, 2017 Chronic pain G89.29 [facility] [id number] [place] [address] 74256- 1379 24 May, 2017 [facility] [id number] [place] [address] 18756- 5405 May, Pelvic pain R10.2 [facility] [id number] [place] [address] 97213- 8280 May, Pelvic pain R10.[address] [facility] [place] [id number] [place] [address] 02814 -7884 May, Renal calculus, right N20.0 [facility] [id number] [place] [address] 96240- 1589 May, Hematuria, unspecified type R31.9 and Nephrolithiasis N20.0 [facility] [place] [id number] [place] [address] 56991 -7918 May, Dysuria R30.0 and Nephrolithiasis N20.0 [facility] [id number] [place] [address] 24388- 9284 May, [facility] [address], [place] [address] May, Abdominal pain R10.9 and Kidney stone N20.0 [facility] [id number] [place] [address] 42573- 9890 May, [facility] [id number] [place] [address] 15016- 4287 May, Chronic pain G89.29 and Panic attacks F41.0 [facility] [id number] [place] [address] 04210- 6461 May, Urinary tract infection without hematuria, site unspecified N39.0 [facility] [id number] [place] [address] 63169- 5696 Apr, Right lower quadrant abdominal pain R10.31 and Abnormal serum lipase level R74.8 [facility] [id number] [place] [address] 22020- 2301 Apr, Recurrent urinary tract infection N39.0 [facility] [id number] [place] [address] 98131- 0127 Apr, UTI symptoms R39.9 ; Recurrent urinary tract infection N39.0 and Pelvic pain R10.2 [facility] [id number] [place] [address] 07613- 7283 Apr, Chronic pain G89.29 and Panic attacks F41.0 [facility] [id number] [place] [address] 71967- 0032 Apr, Dysuria R30.0 [facility] [id number] [place] [address] 69746- 8815 Apr, [facility] [id number] [place] [address] 91540- 5337 Apr, Dysuria R30.0 and Urinary tract infection without hematuria , site unspecified N39.0 [facility] [id number] [place] [address] 04432- 0443 Mar, UTI symptoms R39.9 [facility] [id number] [place] [address] 21458- 9121 Mar, [facility] [id number] [place] [address] 69249- 9213 Mar, Panic attacks F41.0 and Chronic pain G89.29 [place] [place] [address] 13926- 1919 Mar, [facility] [id number] [place] [address] 21878- 8441 Mar, Dysuria R30.0 [facility] [address] 13905- 3304 Mar, Dysuria R30.0 [facility] [address] 95827- 6711 Feb, Chronic pain G89.29 ; Shortness of breath R06.02 ; Weight loss R63.4 ; Encounter for immunization Z23 ; Bone pain M89.8X9 ; Right anterior knee pain M25.561 and Cough R05 [facility] [address] 26571- 1076 Feb, Shortness of breath R06.02 [facility] [id number] [place] [address] 67086- 0389 Feb, [facility] [id number] [place] [address] 56310- 7118 Feb, Panic attacks F41.0 and Chronic pain G89.29 [facility] [id number] [place] [address] 68161- 3423 Feb, [facility] [address] 35467- 1649 Feb, Panic attacks F41.0 ; Shortness of breath R06.02 and Encounter for immunization Z23 [place] [address] 03162- 7942 Jan, [facility] [id number] [place] [address] 21211- 0843 Jan, Anxiety F41.9 and Chronic pain G89.29 [facility] [id number] [place] [address] 96764- 2077 Dec, Anxiety F41.9 and Chronic pain G89.29 [facility] [address] 79313- 3142 Nov, Chronic pain G89.29 [facility] [id number] [place] [address] 25767- 0308 Nov, Anxiety F41.9 [facility] [id number] [place] [address] 64181- 4630 Nov, Chronic pain G89.29 ; Essential hypertension I10 and Other emphysema J43.8 [facility] [id number] [place] [address] 13908- 3565 Oct, Anxiety F41.9 [facility] [id number] [place] [address] 55146- 7282 Oct, [facility] [id number] [place] [address] 30157- 4168 Oct, Chronic pain G89.29 [facility] [id number] [place] [address] 34816- 8767 September, Recurrent UTI N39.0 ; Neuropathy G62.9 and Anxiety F41.9 [facility] [id number] [place] [address] 95608- 1501 September, [facility] [id number] [place] [address] 11276- 7598 September, Chronic pain G89.29 [facility] [id number] [place] [address] 85530- 0978 September, [facility] [id number] [address]- 9274 Aug, Post-traumatic stress disorder, chronic F43.12 ; Chronic urinary tract infection N39.0 ; Gastroesophageal reflux disease without esophagitis K21.9 ; Chronic pain G89.29 ; Essential hypertension I10 and Tobacco abuse Z72.0 [facility] [address], [place] [address] -[address] Aug, [facility] [id number] [place] [address] 63031 2546 Aug, Chronic pain G89.29 [facility] [id number] [place] [address] 12465- 8296 Aug, Insomnia, unspecified type G47.00 [facility] [address], [place] [address]- 2246 Aug, [facility] [id number] [place] [address] 27188- 3930 Jul, Chronic pain G89.29 [facility] [address], [place] [address]- 5824 Jul, [facility] [id number] [address]- 6844 Jul, [facility] [address], [place] [address]- 8368 Jul, [facility] [address], [place] [address]- 2542 15 Jul, 2016 Recurrent UTI (urinary tract infection) N39.0 [facility] [address], [place] [address]- 2546 14 Jul, 2016 [facility] [address], [place] [address]- 2546 Jun, Chronic pain G89.29 [facility] [address], [place] [address]- 2546 Jun, [facility] [id number] [place] [address] 71812- 0693 Jun, [facility] [address] 33054- 5954 May, Chronic pain G89.29 [place] [id number] [place] [address] 85533- 6037 May, Weight loss R63.4 and Shortness of breath R06.02 [facility] [address] 73666- 2527 May, Chronic pain G89.29 ; Weight loss R63.4 and Tobacco abuse Z72.0 [place] [address] 72336- 8294 May, [facility] [id number] [place] [address] 03633- 9149 May, Hypoxia R09.02 [facility] [address] 80668- 4067 May, [facility] [id number] [place] [address] 26765- 6367 May, Pulmonary emphysema, unspecified emphysema type J43.9 [facility] [id number] [place] [address] 66738 -1002 May, [facility] [id number] [place] [address] 90583- 3084 May, [facility] [id number] [place] [address] 09476- 8933 May, [facility] [id number] [place] [address] 34359- 0033 May, Chronic pain G89.29 ; Encounter for immunization Z23 ; Right anterior knee pain M25.561 and Cough R05 [facility] [id number] [place] [address] 46255- 1653 Apr, Chronic pain G89.29 [facility] [id number] [place] [address] 04821- 8350 Apr, [facility] [id number] [place] [address] 57585- 5201 Apr, Generalized anxiety disorder F41.1 and Depression, unspecified depression type F32.9 [facility] [id number] [place] [address] 54881- 9555 Apr, Chronic pain G89.29 ; Hypokalemia E87.6 and Insomnia, unspecified type G47.00 [facility] [id number] [place] [address] 60181- 3434 Apr, [facility] [id number] [place] [address] 83025- 8317 Apr, Chronic pain G89.29 [facility] [id number] [place] [address] 46366- 8903 Apr, [facility] [id number] [place] [address] 41667- 2375 Mar, [facility] [id number] [place] [address] 48384- 5781 Mar, Insomnia, unspecified type G47.00 [facility] [id number] [place] [address] 24168- 0716 Mar, Chronic pain G89.29 [facility] [id number] [place] [address] 75438- 6540 Mar, [facility] [id number] [place] [address] 10760- 7019 Feb, [facility] [id number] [place] [address] 12716- 1588 Feb, [facility] [id number] [place] [address] 89216- 6735 Feb, [facility] [id number] [place] [address] 40143- 6190 Feb, [facility] [address], [place] [address]- 7051 Feb, [facility] [id number] [place] [address] 31558- 1062 Jan, [facility] [id number] [place] [address] 10364- 1815 Jan, [facility] [id number] [place] [address] 11521- 5904 Jan, [facility] [id number] [place] [address] 82745- 1192 13 Jan, 2016 [facility] [id number] [place] [address] 55917- 9909 Jan, [facility] [id number] [place] [address] 67528- 4973 Jan, Chronic pain G89.29 [facility] [id number] [place] [address] 44443- 0994 Jan, Chronic pain G89.29 and Fibromyalgia M79.7 [facility] [id number] [place] [address] 34097- 9660 Dec, Depression, unspecified depression type F32.9 and Generalized anxiety disorder 300.02 [facility] [id number] [place] [address] 96010- 6711 Dec, Dysthymia F34.1 ; Insomnia, unspecified type G47.00 and Chronic pain G89.29 [facility] [address] [address]- 0316 Dec, Chronic pain G89.29 [facility] [id number] [place] [address] 88828- 2077 Dec, Insomnia, unspecified type G47.00 [facility] [id number] [place] [address] 07593- 3418 Dec, Fibromyalgia M79.7 and Chronic pain G89.29 [facility] [address] [facility] [id number] [address]- 9319 Dec, [facility] [address] [facility] [id number] [place] [address] 97999- 3257 Dec, [facility] [address] [facility] [id number] [place] [address] 77837- 2088 Dec, [facility] [address] [facility] [id number] [place] [address] 88540- 2964 Dec, [facility] [address] [facility] [id number] [place] [address] 08958- 9072 Dec, Chronic pain G89.29 [facility] [address] [place] [id number] [place] [address] 11218- 1129 Dec, [facility] [id number] [place] [address] 63884- 9884 Dec, [facility] [address] [facility] [id number] [place] [address] 38004- 8319 Dec, [facility] [id number] [place] [address] 90493- 4562 Dec, Chronic pain G89.29 and Dysthymia F34.1 [facility] [id number] [place] [address] 10888- 6247 Nov, [facility] [id number] [place] [address] 82638- 3819 Nov, Hypokalemia E87.6 and Chronic pain G89.29 [facility] [address] [facility] [id number] [place] [address] 08838- 1866 Nov, Back pain M54.9 and Pain in right knee M25.561 [facility] [address] [facility] [id number] [address]- 1161 Nov, [facility] [address] [id number] [place] [address] 14883- 6657 Nov, Chronic pain G89.29 [facility] [id number] [place] [address] 13605 2546 Nov, Chronic pain G89.29 ; Weight loss R63.4 ; Bone pain M89.8X9 and Insomnia, unspecified type G47.00 [facility] [id number] [place] [address] 28068- 1046 Nov, Chronic pain G89.29 [facility] [id number] [place] [address] 35738 2546 Nov, Chronic pain G89.29 [facility] [id number] [place] [address] 78656 2546 Oct, Chronic pain G89.29 [facility] [id number] [place] [address] 31545- 8956 Oct, UTI symptoms R39.9 [facility] [id number] [place] [address] 40439 2548 Oct, Chronic pain G89.29 [facility] [id number] [place] [address] 63036- 8147 Oct, Chronic pain G89.29 [facility] [id number] [place] [address] 00464 2546 Oct, Chronic pain G89.29 [facility] [id number] [place] [address] 46547 2546 Oct, Right upper quadrant abdominal pain R10.11 [facility] [id number] [place] [address] 80613 2546 Oct, Chronic pain G89.29 [facility] [id number] [place] [address] 59665 2546 Oct, [facility] [id number] [place] [address] 12946- 1546 September, Chronic pain G89.29 [facility] [address] [address]- 2936 September, Dysuria R30.0 and Urinary tract infection without hematuria , site unspecified N39.0 [facility] [address] [address]- 4274 September, [facility] [address] [address]- 9615 September, Dysuria R30.0 [facility] [id number] [place] [address] 73527- 9050 September, Chronic pain G89.29 [facility] [id number] [place] [address] 69712- 2070 September, Chronic pain G89.29 and Essential hypertension I10 [facility] [id number] [place] [address] 61954- 7856 September, [facility] [id number] [place] [address] 22233- 2483 September, [facility] [id number] [place] [address] 48849- 9104 September, [facility] [id number] [place] [address] [phone]- [phone] Aug, UTI symptoms R39.9 [facility] [id number] [address] Aug, Dysuria R30.0 [facility] [id number] [address] Aug, [facility] [id number] [address] Aug, [facility] [id number] [address] Aug, [facility] [id number] [address] Aug, Chronic pain G89.29 [facility] [id number] [address] Aug, Dysthymia F34.1 [facility] [id number] [place] [address] [phone]- 2026 Aug, Conjunctivitis, unspecified conjunctivitis type, unspecified laterality H10.9 [facility] [id number] [place] [address] 26557- 9034 31 Jul, 2015 Chronic pain G89.29 ; Back pain M54.9 ; Tobacco abuse Z72.0 and Weight decrease R63.4 [facility] [id number] [place] [address] 38966- [phone] 30 Jul, 2015 [facility] [id number] [place] [address] [id number]- 3186 30 Jul, 2015 [facility] [id number] [place] [address] 47110- 3706 24 Jul, 2015 Chronic pain G89.29 [facility] [id number] [place] [address] 42592- 2884 22 Jul, 2015 [facility] [id number] [place] [address] 53413 2548 21 Jul, 2015 [facility] [id number] [place] [address] [id number]- 1586 18 Jul, 2015 [facility] [id number] [place] [address] 00614 254 17 Jul, 2015 [facility] [id number] [place] [address] [id number] 2545 17 Jul, 2015 Chronic pain G89.29 [facility] [id number] [place] [address] 90442 2546 16 Jul, 2015 Chronic pain G89.29 [facility] [id number] [place] [address] 51700- 4471 15 Jul, 2015 [facility] [id number] [place] [address] 53732- 8074 Jul, [facility] [id number] [place] [address] 98893- 3013 Jul, [facility] [id number] [place] [address] 39812- 7936 Jul, [facility] [address] 06171- 7135 Jun, [facility] [address] 09356- 5347 Jun, Depression, unspecified depression type F32.9 [address] [address] 43484- 3460 Jun, Pain in right knee M25.561 [facility] [address] 83432- 3316 Jun, Chronic pain G89.29 ; Back pain M54.9 ; Bone pain M89.8X9 and Weight loss R63.4 [facility] [id number] [place] [address] 13138- 8651 Jun, [facility] [id number] [place] [address] 06629- 2522 May, [facility] [id number] [place] [address] 08376- 2691 May, UTI symptoms R39.9 ; Pain in right knee M25.561 ; Right low back pain, with sciatica presence unspecified M54.5 ; Right foot pain M79.671 ; Hypokalemia E87.6 and Screening, lipid Z13.220 [facility] [id number] [place] [address] 40897- 2103 May, [facility] [id number] [place] [address] 54240- 8004 May, [facility] [address] 13254- 8554 Mar, [facility] [id number] [place] [address] 25147- 6346 Mar, [facility] [id number] [place] [address] 99312- 8906 Mar, Hypokalemia E87.6 [facility] [id number] [place] [address] 51480- 3936 Mar, Pain in right leg M79.604 ; Encounter for immunization Z23 ; Pain in right knee M25.561 and Hypokalemia E87.6 [facility] [id number] [place] [address] 54502- 7076 Jan, [facility] [id number] [place] [address] 32027- 5346 Jan, [facility] [id number] [place] [address] 08130- 6278 Jan, Abdominal pain, generalized 789.07 [facility] [id number] [place] [address] 09825- 2419 Jan, Abdominal pain, generalized 789.07 [facility] [id number] [place] [address] 23935- 2134 Dec, [facility] [id number] [place] [address] 97279- 6609 Dec, [facility] [id number] [place] [address] 20506- 9164 Dec, [facility] [id number] [place] [address] 68960- 4552 Nov, Hallux valgus 735.0 and Hammertoe 735.4 [facility] [id number] [place] [address] 02044- 2696 Nov, [facility] [id number] [place] [address] 19620- 6333 Nov, Hallux valgus 735.0 and Hammer toe 735.4 [facility] [address] [address]- 9967 Oct, [facility] [address] 1369 Oct, [facility] [address] [address]- 6997 Oct, Pre-op evaluation V72.84 [facility] [address] [address]- 9747 Oct, [facility] [id number] [place] [address] 325417- 8247 Oct, [facility] [address] [address]- 5029 September, [facility] [id number] [place] [address] 47751- 0018 September, [facility] [address] [address]- 1542 September, Hallux valgus (acquired) 735.0 and Other hammer toe ( acquired) 735.4 [facility] [address] [address]- 9400 Aug, [facility] [address] [address]- 1079 Aug, [facility] [address] [address]- 5490 Jul, [facility] [address] [address]- 9238 Jul, [facility] [address] 3180 Jul, [facility] [address] 5430 Jul, [facility] [place] [facility] [address] [id number] [place] [address]- 2127 Jul, [facility] [place] [facility] [address] [id number] [place] [address]- 4550 Jul, [facility] [place] [facility] [address] [id number] [place] [address]- 7881 Jul, [facility] [place] [facility] [address] [id number] [place] [address]- 3553 Jul, [facility] [place] [facility] [address] [id number] [place] [address]- 0278 Jun, 2014 [facility] [place] [facility] [address] [id number] [place] [address]- 9584 Jun, 2014 [facility] [place] [facility] [address] [id number] [place] [address]- 6917 Jun, 2014 [facility] [place] [facility] [address] [id number] [place] [address]- 0028 Jun, 2014 [facility] [place] [facility] [address] [id number] [place] [address]- 4565 Jun, [facility] [place] [facility] [address] [id number] [place] [address]- 6379 Jun, [facility] [place] [facility] [address] [id number] [place] [address]- 8158 Jun, 2014 [facility] [place] [facility] [address] [id number] [place] [address]- 3265 Jun, 2014 [facility] [place] [facility] [address] [id number] [place] [address]- 7546 Jun, [facility] [place] [facility] [address] [id number] [place] [address]- 4060 Jun, [facility] [place] [facility] [address] [id number] [place] [address]- 9135 May, [facility] [place] [facility] [address] [id number] [place] [address]- 2919 May, [facility] [address] [id number] [place] [address]- 9627 May, [facility] [place] [facility] [address] [id number] [place] [address]- 4070 May, [facility] [place] [facility] [address] [id number] [place] [address]- 3324 May, [facility] [place] [facility] [address] [id number] [place] [address]- 8907 May, [facility] [place] [facility] [address] [id number] [place] [address]- 1285 May, [facility] [place] [facility] [address] [id number] [place] [address]- 6772 May, [facility] [place] [facility] [address] [id number] [place] [address]- 1545 May, [facility] [place] [facility] [address] [id number] [place] [address]- 7512 May, [facility] [place] [facility] [address] [id number] [place] [address]- 0134 May, [facility] [place] [facility] [address] [id number] [place] [address]- 0901 May, [facility] [place] [facility] [address] [id number] [place] [address]- 8870 May, [facility] [place] [facility] [address] [id number] [place] [address]- 3163 May, [facility] [place] [facility] [address] [id number] [place] [address]- 6032 May, [facility] [place] [facility] [address] [id number] [place] [address]- 0415 May, [facility] [place] [facility] [address] [id number] [place] [address]- 1327 May, [facility] [place] [facility] [address] [id number] [place] [address]- 3105 May, [facility] [place] [facility] [address] [id number] [place] [address]- 1025 Apr, [facility] [place] [facility] [address] [id number] [place] 3049 Apr, [facility] [place] [facility] [address] [id number] [place] [address]- 5793 Apr, [facility] [place] [facility] [address] [id number] [place] [address]- 6623 Apr, [facility] [place] [facility] [address] [id number] [place] [address]- 1685 Apr, [facility] [place] [facility] [address] [id number] [place] [address]- 7290 Apr, [facility] [place] [facility] [address] [id number] [place] [address]- 3917 Apr, [facility] [place] [facility] [address] [id number] [place] [address]- 2836 Apr, [facility] [place] [facility] [address] [id number] [place] [address]- 1118 Apr, [facility] [place] [facility] [address] [id number] [place] [address]- 3163 Mar, [facility] [place] [facility] [address] [id number] [place] [address]- 1222 Mar, [facility] [place] [facility] [address] [id number] [place] [address]- 3467 Mar, [facility] [place] [facility] [address] [id number] [place] [address]- 1851 Mar, [facility] [place] [facility] [address] [id number] [place] [address]- 0077 Mar, [facility] [place] [facility] [address] [id number] [address]- 2689 Feb, 2013 [facility] [place] [facility] [address] [id number] [place] [address]- 9682 Feb, 2013 [facility] [place] [facility] [address] [id number] [place] 8279 Feb, 2013 [facility] [place] [facility] [address] [id number] [place] [address]- 8639 Feb, 2013 [facility] [place] [facility] [address] [id number] [place] [address]- 8387 Feb, 2013 [facility] [place] [facility] [address] [id number] [place] [address]- 5046 Feb, 2013 [facility] [place] [facility] [address] [id number] [place] [address]- 9621 Feb, 2013 [facility] [place] [facility] [address] [id number], [place] [address]- 7429 Feb, 2013 [facility] [place] [facility] [address] [id number], [place] [address]- 0162 Feb, 2013 [facility] [place] [facility] [address] [id number], [place] [address]- 0958 Feb, 2013 [facility] [place] [facility] [address] [id number], [place] [address]- 0181 Feb, 2013 [facility] [place] [facility] [address] [id number], [place] [address]- 6118 Feb, 2013 [facility] [place] [facility] [address] [id number], [place] [address]- 2809 Feb, 2013 [facility] [place] [facility] [address] [id number], [place] [address]- 7552 Feb, 2013 [facility] [place] [facility] [address] [id number], [place] [address]- 4688 Feb, 2013 [facility] [place] [facility] [address] [id number], [place] [address]- 5828 Feb, 2013 [facility] [place] [facility] [address] [id number] [place] [address]- 2862 23 Jan, 2013 [facility] [place] [facility] [address] [id number] [place] [address]- 8186 23 Jan, 2013 [facility] [place] [facility] [address] [id number] [place] [address]- 2036 20 Jan, 2013 [facility] [place] [facility] [address] [id number] [place] [address]- 0886 19 Jan, 2013 [facility] [place] [facility] [address] [id number] [place] [address]- 2549 11 Jan, 2013 [facility] [place] [facility] [address] [id number] [place] [address]- 9780 11 Jan, 2013 [facility] [place] [facility] [address] [id number] [place] [address]- 4461 Jan, [facility] [place] [facility] [address] [id number] [place] [address]- 8561 Jan, 2013 [facility] [place] [facility] [address] [id number] [place] [address]- 4961 Dec, [facility] [place] [facility] [address] [id number] [place] [address]- 5186 Dec, [facility] [place] [facility] [address] [id number] [place] [address]- 1892 Nov, [facility] [place] [facility] [address] [id number] [place] [address]- 3345 Nov, [facility] [place] [facility] [address] [id number] [place] [address]- 1481 Nov, [facility] [place] [facility] [address] [id number] [place] [address]- 6095 Nov, [facility] [place] [facility] [address] [id number] [place] [address]- 2462 Nov, [facility] [place] [facility] [address] [id number] [place] [address]- 2258 Nov, [facility] [place] [facility] [address] [id number] [place] [address]- 6953 Nov, [facility] [place] [facility] [address] [id number] [place] [address]- 8268 Nov, [facility] [place] [facility] [address] [id number] [place] [address]- 9234 Nov, [facility] [place] [facility] [address] [id number] [place] [address]- 5538 Oct, [facility] [place] [facility] [address] [id number] [place] [address]- 4202 Oct, [facility] [place] [facility] [address] [id number] [place] [address]- 2134 Oct, [facility] [place] [facility] [address] [id number] [place] [address]- 8580 Oct, [facility] [place] [facility] [address] [id number] [place] [address]- 9922 Oct, [facility] [place] [facility] [address] [id number] [place] [address]- 1527 Oct, [facility] [place] [facility] [address] [id number] [place] [address]- 7640 September, [facility] [place] [facility] [address] [id number] [place] [address]- 8593 September, [facility] [place] [facility] [address] [id number] [place] [address]- 8992 September, [facility] [place] [facility] [address] [id number] [place] [address]- 8862 September, [facility] [place] [facility] [address] [id number] [place] [address]- 2176 September, [facility] [place] [facility] [address] [id number] [place] [address]- 0087 September, [facility] [place] [facility] [address] [id number] [place] [address]- 8234 September, [facility] [address] [id number] [place] [address]- 8985 September, [facility] [place] [facility] [address] [id number] [place] [address]- 4941 September, [facility] [place] [facility] [address] [id number] [place] [address]- 9430 September, [facility] [place] [facility] [address] [id number] [place] [address]- 2065 September, [facility] [place] [facility] [address] [id number] [place] [address]- 3774 September, [facility] [place] [facility] [address] [id number] [place] [address]- 2187 September, [facility] [place] [facility] [address] [id number] [place] [address]- 9744 September, [facility] [place] [facility] [address] [id number] [place] [address]- 3918 September, [facility] [place] [facility] [address] [id number] [place] [address]- 5289 September, [facility] [place] [facility] [address] [id number] [place] [address]- 3937 September, [facility] [place] [facility] [address] [id number] [place] [address]- 9284 September, [facility] [place] [facility] [address] [id number] [place] [address]- 9222 September, [facility] [place] [facility] [address] [id number] [place] 0470 September, [facility] [place] [facility] [address] [id number] [place] [address]- 6594 Aug, [facility] [place] [facility] [address] [id number] [place] [address]- 8127 Aug, [facility] [place] [facility] [address] [id number] [place] [address]- 9383 28 Aug, 2013 [facility] [place] [facility] [address] [id number] [place] [address]- 8678 28 Aug, 2013 [facility] [place] [facility] [address] [id number] [place] [address]- 8889 18 Aug, 2013 [facility] [place] [facility] [address] [id number] [place] [address]- 7067 18 Aug, 2013 [facility] [place] [facility] [address] [id number] [place] [address]- 7191 16 Aug, 2013 [facility] [place] [facility] [address] [id number] [place] [address]- 2359 16 Aug, 2013 [facility] [place] [facility] [address] [id number] [place] [address]- 3529 15 Aug, 2013 [facility] [place] [facility] [address] [id number] [place] [address]- 9510 15 Aug, 2013 [facility] [place] [facility] [address] [id number] [place] [address]- 8938 14 Aug, 2013 [facility] [place] [facility] [address] [id number] [place] [address]- 9896 05 Aug, 2013 [facility] [place] [facility] [address] [id number] [place] [address]- 9916 Aug, [facility] [place] [facility] [address] [id number] [place] [address]- 6738 Aug, [facility] [place] [facility] [address] [id number] [place] [address]- 7658 Aug, [facility] [place] [facility] [address] [id number] [place] 6410 Jul, [facility] [place] [facility] [address] [id number] [place]500 Jul, [facility] [place] [facility] [address] [id number] [place] [address]- 9643 Jul, [facility] [place] [facility] [address] [id number] [place] [address]- 7123 Jul, [facility] [place] [facility] [address] [id number] [place] [address]- 0053 Jul, [facility] [place] [facility] [address] [id number] [place] [address]- 2852 Jul, [facility] [place] [facility] [address] [id number] [place] [address]- 8906 Jul, [facility] [place] [facility] [address] [id number] [place] [address]- 5249 Jul, [facility] [place] [facility] [address] [id number] [place] [address]- 4673 Jul, [facility] [place] [facility] [address] [id number] [place] [address]- 1373 Jul, [facility] [place] [facility] [address] [id number] [place] [address]- 2267 Jul, [facility] [place] [facility] [address] [id number] [place] [address]- 3653 Jul, [facility] [place] [facility] [address] [id number] [place] [address]- 1485 Jul, [facility] [place] [facility] [address] [id number] [place] [address]- 6892 Jul, [facility] [place] [facility] [address] [id number] [place] [address]- 2768 Jul, [facility] [place] [facility] [address] [id number] [place] [address]- 5284 Jun, [facility] [place] [facility] [address] [id number] [place] [address]- 4635 Jun, [facility] [place] [facility] [address] [id number] [place] [address]- 2604 Jun, [facility] [place] [facility] [address] [id number] [place] [address]- 1963 Jun, [facility] [address] [id number] [place] [address]- 4766 Jun, [facility] [place] [facility] [address] [id number] [place] [address]- 8206 Jun, [facility] [address] [id number] [place] [address]- 6236 May, [facility] [place] [facility] [address] [id number] [place] [address]- 4906 May, [facility] [address] [id number] [place] [address]- 2698 May, [facility] [place] [facility] [address] [id number] [place] [address] May, [facility] [address] [id number] [place] [address] May, [facility] [address] [id number] [place] [address] 1498 May, [facility] [place] [facility] [address] [id number] [place] [address] May, [facility] [address] [id number] [place] [address] May, [facility] [place] [facility] [address] [id number] [place] [address] May, [facility] [place] [facility] [address] [id number] [place] [address] May, [facility] [place] [facility] [address] [id number] [place] [address] May, [facility] [place] [facility] [address] [id number] [place] [address]26 May, [facility] [place] [facility] [address] [id number] [place] [address] May, [facility] [address] [id number] [place] [address] May, [facility] [place] [facility] [address] [id number] [place] [address] May, [facility] [place] [facility] [address] [id number] [place] [address]- [address] Apr, [facility] [place] [facility] [address] [id number] [place] [address]- [address] Apr, [facility] [place] [facility] [address] [id number] [place] [address]27 Apr, [facility] [place] [facility] [address] [id number] [place] [address]136 Apr, [facility] [place] [facility] [address] [id number] [place] [address]- [address]44 Apr, [facility] [place] [facility] [address] [id number] [place] [address]- [address] Apr, [facility] [place] [facility] [address] [id number] [place] [address]- [address]60 Apr, [facility] [place] [facility] [address] [id number] [place] [address] 40[address] Apr, [facility] [place] [facility] [address] [id number] [place] [address]- [address] Apr, [facility] [place] [facility] [address] [id number] [place] [address]16 Apr, [facility] [place] [facility] [address] [id number] [place] [address] 7945 Mar, [facility] [place] [facility] [address] [id number] [place] [address]- 9310 Mar, [facility] [place] [facility] [address] [id number] [place] [address]- [address]274 Mar, [facility] [place] [facility] [address] [id number], [place] [address]- 113[address] Mar, [facility] [address] [id number] [place] [address]- 1142 Mar, [facility] [place] [facility] [address] [id number], [place] [address] Mar, [facility] [address] [id number] [place] [address]- [address]67 Mar, [facility] [place] [facility] [address] [id number] [place] [address] 4319 Mar, [facility] [address] [id number] [place] [address] 2814 Mar, [facility] [place] [facility] [address] [id number] [place] [address]144 Mar, [facility] [address] [id number], [place] [address] 8538 Mar, [facility] [place] [facility] [address] [id number], [place] [address]643 Mar, [facility] [address] [id number] [place] [address]- [address] Mar, [facility] [address] [id number], [place] [address]- 1644 Mar, [facility] [address] [id number], [place] [address]- [address] 18 Mar, 2013 [facility] [place] [facility] [address] [id number], [place] [address]- [address] 18 Mar, 2013 [facility] [place] [facility] [address] [id number], [place] [address] 14 Mar, 2013 [facility] [place] [facility] [address] [id number], [place] [address]- [address] 14 Mar, 2013 [facility] [place] [facility] [address] [id number], [place] [address]- [address] 12 Mar, 2013 [facility] [place] [facility] [address] [id number] [place] [address]- [address]651 Mar, [facility] [place] [facility] [address] [id number] [place] [address]- 9690 Mar, [facility] [place] [facility] [address] [id number] [place] [address]- 7967 Mar, [facility] [place] [facility] [address] [id number] [place] [address]- [address]88 Mar, [facility] [place] [facility] [address] [id number] [place] [address] Feb, [facility] [place] [facility] [address] [id number] [place] [address]- 7560 Feb, [facility] [place] [facility] [address] [id number] [place] [address] Feb, [facility] [place] [facility] [address] [id number] [place] [address]- 5935 Feb, [facility] [place] [facility] [address] [id number] [place] [address]- 8191 Feb, [facility] [place] [facility] [address] [id number] [place] [address]- 6164 Feb, [facility] [place] [facility] [address] [id number] [place] [address]- 0160 Feb, [facility] [place] [facility] [address] [id number] [place] [address]- [address]197 Feb, [facility] [place] [facility] [address] [id number] [place] [address]- 6847 Feb, [facility] [place] [facility] [address] [id number] [place] [address]100 Feb, [facility] [place] [facility] [address] [id number] [place] [address]- [address]31 30 Jan, 2013 [facility] [place] [facility] [address] [id number] [place] [address]- 9428 26 Jan, 2013 [facility] [place] [facility] [address] [id number] [place] [address]- 3940 24 Jan, 2013 [facility] [place] [facility] [address] [id number] [place] [address]- [address]41 23 Jan, 2013 [facility] [place] [facility] [address] [id number] [place] [address] Jan, [facility] [place] [facility] [address] [id number] [place] [address]- 3644 Dec, [facility] [place] [facility] [address] [id number] [place] [address]- 1206 Dec, [facility] [place] [facility] [address] [id number] [place] [address]- [address]108 Dec, [facility] [place] [facility] [address] [id number] [place] [address]- 3833 Dec, [facility] [place] [facility] [address] [id number] [place] [address]- [address]377 Dec, [facility] [place] [facility] [address] [id number] [place] [address] Dec, [facility] [place] [facility] [address] [id number] [place] [address] Dec, [facility] [place] [facility] [address] [id number] [place] [address] Nov, [facility] [place] [facility] [address] [id number] [address] Nov, [facility] [place] [facility] [address] [id number] [place] [address] 3314 Nov, [facility] [place] [facility] [address] [id number] [place] [address] 96[address] Nov, [facility] [place] [facility] [address] [id number] [place] [address] 97[address] Nov, [facility] [place] [facility] [address] [id number] [place] [address] 2[address] 18 Oct, 2012 [facility] [address] [id number] [place] [address] 9180 14 Oct, 2012 [facility] [address] [id number] [place] [address] 3440 06 Oct, 2012 [facility] [address] [id number] [place] [address] September, [facility] [address] [id number] [place] [address] September, [facility] [address] [id number] [place] [address] 9724 September, [facility] [address] [id number] [place] [address] September, [facility] [address] [id number] [place] [address] 2620 September, [facility] [address] [id number] [place] [address] 58[address] September, [facility] [address] [id number] [place] [address] 1502 September, [facility] [address] [id number] [place] [address] 8227 Aug, [facility] [address] [id number] [place] [address] 0766 Aug, [facility] [address] [id number] [place] [address] 5703 Aug, [facility] [place] [facility] [address] [id number] [place] [address]- 8099 29 Jul, 2012 [facility] [place] [facility] [address] [id number] [place] [address] 7643 Jul, [facility] [address] [id number] [place] [address] 9344 Jul, [facility] [place] [facility] [address] [id number] [place] [address]- 4164 20 Jul, 2012 [facility] [place] [facility] [address] [id number] [place] [address]- 6854 18 Jul, 2012 [facility] [place] [facility] [address] [id number] [place] [address]- 8015 18 Jul, 2012 [facility] [place] [facility] [address] [id number] [place] [address] 5[address] Jul, [facility] [address] [id number] [place] [address] 3132 28 Jun, 2012 [facility] [place] [facility] [address] [id number] [place] [address]- 6885 Jun, [facility] [address] [id number] [place] [address] 9419 Jun, [facility] [place] [facility] [address] [id number] [place] [address] 3535 Jun, [facility] [place] [facility] [address] [id number] [place] [address]- 1433 15 Jun, 2012 [facility] [place] [facility] [address] [id number] [place] [address]- 8654 Jun, [facility] [place] [facility] [address] [id number] [place] [address]- 9370 Jun, [facility] [place] [facility] [address] [id number] [place] [address]- 254 Jun, [facility] [place] [facility] [address] [id number] [place] [address]- 1781 Jun, [facility] [place] [facility] [address] [id number] [place] [address] 8057 Jun, [facility] [place] [facility] [address] [id number] [place] [address]- 5984 May, [facility] [place] [facility] [address] [id number] [place] [address]- 1420 22 May, 2012 [facility] [address] [id number] [place] [address] 9916 17 May, 2012 [facility] [address] [id number] [place] [address]- 4556 17 May, 2012 [facility] [address] [id number] [place] [address]- 3804 15 May, 2012 [facility] [address] [id number] [place] [address]- 5619 07 May, 2012 [facility] [address] [id number] [place] [address] 31 Apr, 2012 [facility] [address] [id number] [place] [address]- 6483 31 Apr, 2012 [facility] [address] [id number] [place] [address]- 8582 Apr, [facility] [address] [id number] [place] [address]- 0114 28 Apr, 2012 [facility] [address] [id number] [place] [address]- 6006 26 Apr, 2012 [facility] [place] [facility] [address] [id number] [place] [address]- 0145 20 Apr, 2012 [facility] [address] [id number] [place] [address] 2546 Apr, [facility] [address] [id number] [place] [address]- 2544 29 Mar, 2012 [facility] [address] [id number] [place] [address]- 0851 29 Mar, 2012 [facility] [address] [id number] [place] [address]- 0547 27 Mar, 2012 [facility] [address] [id number] [place] [address]- 9420 Mar, [facility] [place] [facility] [address] [id number] [place] [address]- 0077 Mar, [facility] [place] [facility] [address] [id number] [place] [address]- 2549 Mar, [facility] [place] [facility] [address] [id number] [place] [address]- 6526 Mar, [facility] [place] [facility] [address] [id number] [place] [address]- 8279 Mar, [facility] [place] [facility] [address] [id number] [place] [address]- 0152 Mar, [facility] [place] [facility] [address] [id number] [place] [address]- 8076 Mar, [facility] [place] [facility] [address] [facility] [id number] [place] [address]- 4378 Mar, [facility] [place] [facility] [address] [id number], [place] [address]- 1094 Mar, [facility] [place] [facility] [address] [facility] [id number], [place] [address]- 6216 Mar, [facility] [place] [facility] [address] [facility] [id number], [place] [address]- 6144 Mar, [facility] [place] [facility] [address] [facility] [id number], [place] [address]- 3680 Mar, [facility] [place] [facility] [address] [id number], [place] [address]- 3071 Mar, [facility] [place] [facility] [address] [id number], [place] [address]- 8143 Mar, [facility] [place] [facility] [address] [id number], [place] [address]- 4759 Feb, [facility] [place] [facility] [address] [facility] [id number], [place] [address]- 4152 Feb, [facility] [place] [facility] [address] [id number], [place] [address]- 3514 17 Feb, 2012 [facility] [place] [facility] [address] [id number] [place] [address]- 3775 17 Feb, 2012 [facility] [place] [facility] [address] [id number] [place] [address]- 2266 16 Feb, 2012 [facility] [place] [facility] [address] [id number] [place] [address]- 8466 16 Feb, 2012 [facility] [place] [facility] [address] [id number] [place] [address]- 3457 Feb, [facility] [place] [facility] [address] [id number] [place] [address]- 7660 Feb, [facility] [place] [facility] [address] [id number] [place] [address]- 3789 05 Feb, 2012 [facility] [place] [facility] [address] [facility] [id number] [place] [address]- 2208 04 Feb, 2012 [facility] [place] [facility] [address] [id number] [place] [address]- 5884 02 Feb, 2012 [facility] [place] [facility] [address] [facility] [id number] [place] [address]- 4338 27 Jan, 2012 [facility] [place] [facility] [address] [facility] [id number] [place] [address]- 5730 25 Jan, 2012 [facility] [place] [facility] [address] [id number] [place] [address]- 3280 13 Jan, 2012 [facility] [place] [facility] [address] [id number] [place] [address]- 3143 12 Jan, 2012 [facility] [place] [facility] [address] [id number] [place] [address]- 9202 07 Jan, 2012 [facility] [place] [facility] [address] [facility] [id number] [place] [address]- 6507 31 Dec, 2011 [facility] [place] [facility] [address] [facility] [id number] [place] [address]- 4469 24 Dec, 2011 [facility] [place] [facility] [address] [id number] [place] [address]- 7849 Dec, [facility] [place] [facility] [address] [id number] [place] [address]- 0746 Dec, [facility] [place] [facility] [address] [id number] [place] [address] 2546 Dec, [facility] [place] [facility] [address] [id number] [place] [address]- 4328 Dec, [facility] [place] [facility] [address] [id number] [place] [address]- 0139 Dec, [facility] [place] [facility] [address] [id number] [place] [address]- 5653 Dec, [facility] [place] [facility] [address] [id number] [place] [address]- 5807 Nov, [facility] [place] [facility] [address] [id number] [place] [address]- 2963 Nov, [facility] [place] [facility] [address] [id number] [place] [address]- 8633 Nov, [facility] [place] [facility] [address] [id number] [place] [address]- 7038 Nov, [facility] [place] [facility] [address] [id number] [place] [address]- 3864 Nov, [facility] [place] [facility] [address] [id number] [place] [address]- 1904 Oct, [facility] [place] [facility] [address] [id number] [place] [address]- 5230 Oct, [facility] [place] [facility] [address] [id number] [place] [address] September, [facility] [place] [facility] [address] [id number] [place] [address]- 6246 September, [facility] [place] [facility] [address] [id number] [place] [address]- 7942 September, [facility] [address] [id number] [place] [address]- 4533 September, [facility] [place] [facility] [address] [id number] [place] [address]- 1315 September, [facility] [place] [facility] [address] [id number] [place] [address]- 8414 September, [facility] [place] [facility] [address] [id number] [place] [address]- 2880 September, [facility] [place] [facility] [address] [id number] [place] [address]- 5569 September, [facility] [place] [facility] [address] [id number] [place] [address]- 3729 September, [facility] [place] [facility] [address] [id number] [place] [address]- 8026 September, [facility] [place] [facility] [address] [id number] [place] [address]- 0135 September, [facility] [place] [facility] [address] [id number] [place] [address]- 5220 September, [facility] [place] [facility] [address] [id number] [place] [address]- 9699 September, [facility] [place] [facility] [address] [id number] [place] [address]- 8510 September, [facility] [place] [facility] [address] [id number] [place] [address]- 9583 24 Aug, 2011 [facility] [place] [facility] [address] [id number] [place] [address]- 6613 Aug, [facility] [place] [facility] [address] [id number] [place] [address]- 0750 13 Aug, 2011 [facility] [place] [facility] [address] [id number] [place] [address]- 4884 Aug, [facility] [place] [facility] [address] [id number] [place] [address]- 0255 23 Jul, 2011 [facility] [address] [id number] [place] [address]- 9316 13 Jul, 2011 [facility] [address] [id number] [place] [address] 2546 13 Jul, 2011 [facility] [place] [facility] [address] [facility] [id number] [place] [address] 2546 28 Jun, [address] [facility] [address] [id number] [id number] 26 Jun, 2011 [facility] [address] [id number] [place] [address]- 6676 13 Jun, 2011 [facility] [address] [id number] [place] [address]- 0586 10 Jun, 2011 [facility] [id number] [address] 2546 07 Jun, 2011 [facility] [address] [id number] [place] [address] 2541 07 Jun, 2011 [facility] [address] [id number] [place] [address]- 2517 03 Jun, 2011 [facility] [address] [id number] [place] [address]- 3118 02 Jun, 2011 [facility] [address] [id number] [place] [address] 2546 May, [facility] [address] [id number] [place] [address] 2541 May, [facility] [place] [facility] [address] [id number] [place] [address] 2549 May, [facility] [place] [facility] [address] [id number] [place] [address] 2546 May, [facility] [place] [facility] [address] [id number] [place] [address]- 5605 May, [facility] [place] [facility] [address] [id number] [place] [address]- 5944 May, [facility] [address] [id number] [place] [address]- 1006 May, [facility] [place] [facility] [address] [id number] [place] [address] 2546 May, [facility] [place] [facility] [address] [id number] [place] [address] 2548 May, [facility] [address] [id number] [place] [address]- 5613 May, [facility] [address] [id number] [place] [address]- 5946 May, [facility] [address] [id number] [place] [address]- 6736 May, [facility] [address] [id number] [place] [address]- 9252 May, [facility] [address] [id number] [place] [address]- 4745 May, [facility] [address] [id number] [place] [address]- 0311 Apr, [facility] [place] [facility] [address] [id number] [place] [address]- 2546 16 Apr, 2011 [facility] [place] [facility] [address] [id number], [place] [address]- 2546 05 Apr, 2011 [facility] [place] [facility] [address] [id number] [place] [address]- 8774 Mar, [facility] [place] [facility] [address] [id number] [place] [address]- 2546 Mar, [facility] [place] [facility] [address] [id number] [place] [address]- 2546 Feb, [facility] [place] [facility] [address] [id number], [place] [address]- 3677 26 Feb, 2011 [facility] [place] [facility] [address] [id number] [place] [address]- 6546 21 Feb, 2011 [facility] [place] [facility] [address] [id number] [place] [address] 2546 20 Feb, 2011 [facility] [place] [facility] [address] [id number] [place] [address]- 7426 13 Feb, 2011 [facility] [place] [facility] [address] [id number] [place] [address]- 0877 28 Apr, 2010 [facility] [place] [facility] [address] [id number] [place] [address]- 3216 22 Apr, 2010 [facility] [place] [facility] [address] [id number] [place] [address]- 1066 16 Apr, 2010 [facility] [place] [facility] [address] [id number] [place] [address]- 5160 15 Apr, 2010 [facility] [place] [facility] [address] [id number] [place] [address]- 3097 15 Apr, 2010 [facility] [place] [facility] [address] [id number] [place] [address]- 1711 Apr, [facility] [place] [facility] [address] [id number] [place] [address]- 5873 24 Mar, 2010 [facility] [place] [facility] [address] [id number] [place] [address] 2546 17 Mar, 2010 [facility] [place] [facility] [address] [id number] [place] [address] 2541 17 Mar, 2010 [facility] [place] [facility] [address] [id number] [place] [address]- 7499 28 Feb, 2010 [facility] [place] [facility] [address] [id number] [place] [address]- 2621 22 Feb, 2010 [facility] [place] [facility] [address] [id number] [place] [address]- 1515 Feb, [facility] [place] [facility] [address] [id number] [place] [address]- 2946 15 Feb, 2010 [facility] [address] [id number] [address]- 8763 18 Dec, 2009 [facility] [address] [id number], [place] [address]- 1257 Dec, [facility] [address] [id number], [place] [address]- 1310 Oct, [facility] [id number] [address] Mar, [facility] [address] [id number] [address] Mar, [facility] [address] [id number] [address]- 6624 September, IMMUNIZATIONS No Known Immunizations SOCIAL HISTORY Never Assessed REASON FOR VISIT Refill request PLAN OF CARE VITAL SIGNS MEDICATIONS No [...]
--- OUTSIDE RECORDS SUMMARY | 2017-12-20 13:08 | XMS REPORT ---
Author Author CIRILO PERAZA Organization [facility] Address [address] [place] [address] Care Team Providers Care Acid Maker Name Role Phone STU CIRILO Unavailable PROBLEMS Type Condition ICD9-CM Code NZB02-FA Code Onset Dates Condition Status SNOMED Code Problem Generalized anxiety disorder F41.1 Active 92167415 Problem Hypokalemia E87.6 Active 400275144 Problem Right low back pain, with sciatica presence unspecified M54.5 Active 857441904 Problem Post-traumatic stress disorder, chronic F43.12 Active 36776460 Problem Pain in right knee M25.561 Active 00381202 Problem Gastroesophageal reflux disease without esophagitis K21.9 Active 554725749 Problem UTI symptoms R39.9 Active 12743374 Problem Essential hypertension I10 Active 09962627 Problem Anxiety F41.9 Active 42037557 Problem Neuropathy G62.9 Active 372913641 Problem Other chronic pain G89.29 Active 58090174 Problem Generalized abdominal pain R10.84 Active 929056635 Problem Chronic pain G89.29 Active 81867261 Problem Back pain M54.9 Active 717679224 Problem Right foot pain M79.671 Active 49473622 Problem Panic attacks F41.0 Active 253266210 Problem Other emphysema J43.8 Active 49901204 Problem Kidney stones N20.0 Active 38951378 Problem Renal calculus, right N20.0 Active 42196683 Problem Weight decrease R63.4 Active 718780180 Problem Tobacco abuse Z72.0 Active 73390686 Problem Bone pain M89.8X9 Active 61336284 Problem Depression, unspecified depression type F32.9 Active 11294642 Problem Insomnia, unspecified type G47.00 Active 369212991 Problem Pulmonary emphysema, unspecified emphysema type J43.9 Active 95446168 Problem Right upper quadrant abdominal pain R10.11 Active 173062418 Problem Weight loss R63.4 Active 892648221 ALLERGIES Substance Reaction Event Type Date Status Sulfur rash Drug Allergy Jul, Active Remeron itching Drug Allergy Jul, Active Morphine Sulfate nausea Drug Allergy Jul, Active Fentanyl 25 Mcg/hr Patch 72 Hr Unknown Non Drug Allergy Jul, Active ENCOUNTERS Encounter Location Date Diagnosis [facility] [address], [place] [address] Nov, [facility] [id number] [place] [address] 90235- 8755 Nov, Pelvic pain R10.2 ; Acute pyelonephritis N10 and Essential hypertension I10 [facility] [id number] [place] [address] 82818- 6628 Oct, Medicare welcome exam Z00.00 [facility] [id number] [place] [address] 27022- 3110 18 Oct, 2017 Gross hematuria R31.0 ; Urinary tract infection without hematuria, site unspecified N39.0 and Weakness R53.1 [facility] [address], [place] [address] 13 Oct, 2017 [facility] [id number] [place] [address] 92576- 0418 Oct, [facility] [id number] [place] [address] 94992- 5990 Oct, Medicare welcome exam Z00.00 [facility] [id number] [place] [address] 18023- 1819 September, Back pain M54.9 and Right anterior knee pain M25.561 [facility] [id number] [place] [address] 41104- 6210 September, [facility] [id number] [place] [address] 17319- 3655 September, [facility] [address] [address] 1670 September, Essential hypertension I10 [facility] [address], [place] [address] 4[address] September, [facility] [id number] [place] [address] 44264- 2543 September, RLQ abdominal pain R10.31 ; Low back pain M54.5 and Other chronic pain G89.29 [facility] [id number] [place] [address] 08123- 8785 Aug, Medicare welcome exam Z00.00 [facility] [id number] [place] [address] 24661- 6238 Aug, [facility] [id number] [place] [address] 09371- 5670 Aug, Acute pyelonephritis N10 and Medicare welcome exam Z00.00 [facility] [id number] [place] [address] 84746 -4496 Aug, Dysuria R30.0 and Acute pyelonephritis N10 [facility] [id number] [place] [address] 24728- 3959 Aug, [facility] [id number] [place] [address] 06985- 6520 Aug, [facility] [id number] [place] [address] 36110- 4717 Aug, [facility] [id number] [place] [address] 98463- 2621 Aug, [facility] [address], [place] [address] 1773 Jul, [facility] [id number] [place] [address] 01643- 1499 Jul, Renal calculus, right N20.0 and Medicare welcome exam Z00.00 [facility] [address], [place] [address] Jul, Dysuria R30.0 and Renal calculus, right N20.0 [facility] [id number] [place] [address] 06921- 8901 Jul, Medicare welcome exam Z00.00 [facility] [id number] [place] [address] 50534- 9186 13 Jun, 2017 Gastroesophageal reflux disease without esophagitis K21.9 and Generalized abdominal pain R10.84 [facility] [id number] [place] [address] 03755- 1044 09 Jun, 2017 Medicare welcome exam Z00.00 [facility] [id number] [place] [address] 19784- 6211 Jun, [facility] [id number] [place] [address] 11452- 7053 Jun, Medicare welcome exam Z00.00 and Encounter for screening mammogram for malignant neoplasm of breast Z12.31 [facility] [id number] [place] [address] 62703- 0945 Jun, Chronic pain G89.29 [facility] [id number] [place] [address] 42102- 1856 May, [facility] [id number] [place] [address] 54163- 3057 May, Pelvic pain R10.2 [facility] [id number] [place] [address] 10130- 0272 May, Pelvic pain R10.2 [facility] [id number] [place] [address] 11335 -9589 May, Renal calculus, right N20.0 [facility] [id number] [place] [address] 76757- 4318 May, Hematuria, unspecified type R31.9 and Nephrolithiasis N20.0 [facility] [id number] [place] [address] 53887 -0821 May, Dysuria R30.0 and Nephrolithiasis N20.0 [facility] [id number] [place] [address] 67953- 7260 May, [facility] [id number] [place] [address] 58246 -8375 May, Abdominal pain R10.9 and Kidney stone N20.0 [facility] [id number] [place] [address] 41398- 9332 May, [facility] [id number] [place] [address] 87388- 8507 May, Chronic pain G89.29 and Panic attacks F41.0 [facility] [id number] [place] [address] 37237- 3562 May, Urinary tract infection without hematuria, site unspecified N39.0 [facility] [id number] [place] [address] 28780- 2927 Apr, Right lower quadrant abdominal pain R10.31 and Abnormal serum lipase level R74.8 [facility] [id number] [place] [address] 10655- 0551 Apr, Recurrent urinary tract infection N39.0 [facility] [id number] [place] [address] 12295- 8313 Apr, UTI symptoms R39.9 ; Recurrent urinary tract infection N39.0 and Pelvic pain R10.2 [facility] [id number] [place] [address] 31890- 0078 Apr, Chronic pain G89.29 and Panic attacks F41.0 [facility] [id number] [place] [address] 27324- 6222 Apr, Dysuria R30.0 [facility] [id number] [place] [address] 04992- 2755 Apr, [facility] [id number] [place] [address] 08312- 2247 Apr, Dysuria R30.0 and Urinary tract infection without hematuria , site unspecified N39.0 [facility] [id number] [place] [address] 71284- 6425 Mar, UTI symptoms R39.9 [facility] [id number] [place] [address] 46190- 7023 Mar, [facility] [id number] [place] [address] 47602- 6852 Mar, Panic attacks F41.0 and Chronic pain G89.29 [facility] [id number] [place] [address] 47507- 4281 Mar, [facility] [id number] [place] [address] 16714- 4514 Mar, Dysuria R30.0 [facility] [id number] [place] [address] 11879- 3445 Mar, Dysuria R30.0 [facility] [id number] [place] [address] 02483- 3885 Feb, Chronic pain G89.29 ; Shortness of breath R06.02 ; Weight loss R63.4 ; Encounter for immunization Z23 ; Bone pain M89.8X9 ; Right anterior knee pain M25.561 and Cough R05 [facility] [id number] [place] [address] 42983- 8881 Feb, Shortness of breath R06.02 [facility] [id number] [place] [address] 90082- 0954 Feb, [facility] [id number] [place] [address] 83763- 5347 Feb, Panic attacks F41.0 and Chronic pain G89.29 [facility] [id number] [place] [address] 63873- 4990 Feb, [facility] [id number] [place] [address] 49983- 9344 Feb, Panic attacks F41.0 ; Shortness of breath R06.02 and Encounter for immunization Z23 [facility] [address] 78004- 2808 Jan, [facility] [address] 51114- 6517 15 Jan, 2017 Anxiety F41.9 and Chronic pain G89.29 [facility] [address] 92565- 3317 Dec, Anxiety F41.9 and Chronic pain G89.29 [facility] [address] 39570- 5381 Nov, Chronic pain G89.29 [facility] [address] 66100- 6257 Nov, Anxiety F41.9 [facility] [address] 09367- 7119 Nov, Chronic pain G89.29 ; Essential hypertension I10 and Other emphysema J43.8 [facility] [address] 25103- 4649 Oct, Anxiety F41.9 [facility] [address] 04126- 0754 Oct, [facility] [address] 89096- 2055 Oct, Chronic pain G89.29 [facility] [address] 95351- 7311 September, Recurrent UTI N39.0 ; Neuropathy G62.9 and Anxiety F41.9 [facility] [address] 42365- 4129 September, [facility] [address] 44958- 5894 September, Chronic pain G89.29 [facility] [address], [place] [address]- 5727 September, [facility] [id number] [address]- 3529 Aug, Post-traumatic stress disorder, chronic F43.12 ; Chronic urinary tract infection N39.0 ; Gastroesophageal reflux disease without esophagitis K21.9 ; Chronic pain G89.29 ; Essential hypertension I10 and Tobacco abuse Z72.0 [facility] [address] [address] Aug, [facility] [id number] [place] [address] 37887- 2499 Aug, Chronic pain G89.29 [facility] [address] [address]- 4550 Aug, Insomnia, unspecified type G47.00 [facility] [address], [place] [address]- 2745 Aug, [facility] [id number] [place] [address] 42855- 6415 24 Jul, 2016 Chronic pain G89.29 [facility] [address] [address]- 2542 Jul, [facility] [address] [address]- 7504 Jul, [facility] [address], [place] [address]- 2347 Jul, [facility] [address], [place] [address]- 4993 15 Jul, 2016 Recurrent UTI (urinary tract infection) N39.0 [facility] [address], [place] [address]- 8162 14 Jul, 2016 [facility] [address], [place] [address]- 1144 Jun, Chronic pain G89.29 [facility] [id number] [place] [address] 60189- 0749 Jun, [facility] [id number] [place] [address] 12561- 5996 Jun, [facility] [id number] [place] [address] 62958- 8356 May, Chronic pain G89.29 [facility] [id number] [place] [address] 83636- 1494 May, Weight loss R63.4 and Shortness of breath R06.02 [facility] [id number] [place] [address] 74146- 2081 May, Chronic pain G89.29 ; Weight loss R63.4 and Tobacco abuse Z72.0 [facility] [id number] [place] [address] 67500- 2583 May, [facility] [id number] [place] [address] 99730- 4540 May, Hypoxia R09.02 [facility] [id number] [place] [address] 01738- 8433 May, [facility] [id number] [place] [address] 02414- 8707 May, Pulmonary emphysema, unspecified emphysema type J43.9 [facility] [id number] [place] [address] 59873 -8560 May, [facility] [id number] [place] [address] 61427- 5812 May, [facility] [id number] [place] [address] 81864- 6561 May, [facility] [id number] [place] [address] 96182- 2686 May, Chronic pain G89.29 ; Encounter for immunization Z23 ; Right anterior knee pain M25.561 and Cough R05 [facility] [id number] [place] [address] 58880- 4836 Apr, Chronic pain G89.29 [facility] [id number] [place] [address] 62039- 1956 Apr, [facility] [id number] [place] [address] 36344- 9696 Apr, Generalized anxiety disorder F41.1 and Depression, unspecified depression type F32.9 [facility] [id number] [place] [address] 53988- 3568 Apr, Chronic pain G89.29 ; Hypokalemia E87.6 and Insomnia, unspecified type G47.00 [facility] [id number] [place] [address] 23751- 3286 Apr, [facility] [address] 18613- 9193 Apr, Chronic pain G89.29 [facility] [id number] [place] [address] 04926- 4638 Apr, [facility] [address] 14022- 4077 Mar, [facility] [id number] [place] [address] 24251- 2230 Mar, Insomnia, unspecified type G47.00 [facility] [id number] [place] [address] 87498- 7725 Mar, Chronic pain G89.29 [facility] [id number] [place] [address] 62890- 0856 Mar, [facility] [id number] [place] [address] 00818- 9691 Feb, [facility] [id number] [place] [address] 27290- 6531 Feb, [facility] [address], [place] [address]- 6240 10 Feb, 2016 [facility] [address], [place] [address]- 3564 10 Feb, 2016 [facility] [address] [address]- 9855 06 Feb, 2016 [facility] [id number] [place] [address] 82126- 8429 29 Jan, 2016 [facility] [address] [address]- 8362 26 Jan, 2016 [facility] [id number] [place] [address], [place] [address]- 7003 20 Jan, 2016 [facility] [id number] [place] [address] 33001- 8752 13 Jan, 2016 [facility] [id number] [place] [address] 44615- 5685 12 Jan, 2016 [facility] [id number] [place] [address] 75092- 8858 07 Jan, 2016 Chronic pain G89.29 [facility] [id number] [place] [address] 24307- 1381 Jan, Chronic pain G89.29 and Fibromyalgia M79.7 [facility] [address] [address]- 3417 Dec, Depression, unspecified depression type F32.9 and Generalized anxiety disorder 300.02 [facility] [address], [place] [address]- 3894 Dec, Dysthymia F34.1 ; Insomnia, unspecified type G47.00 and Chronic pain G89.29 [facility] [address], [place] [address]- 1791 Dec, Chronic pain G89.29 [facility] [id number] [place] [address] 99230- 9743 Dec, Insomnia, unspecified type G47.00 [facility] [id number] [place] [address] 40199- 4539 Dec, Fibromyalgia M79.7 and Chronic pain G89.29 [facility] [id number] [place] [address] 68468- 1130 Dec, [facility] [address] 54506- 8532 Dec, [facility] [id number] [place] [address] 24420- 8918 Dec, [facility] [id number] [place] [address] 95747- 2227 Dec, [facility] [id number] [place] [address] 86326- 3137 Dec, Chronic pain G89.29 [facility] [id number] [place] [address] 15569- 8311 Dec, [facility] [id number] [place] [address] 56566- 6959 Dec, [facility] [id number] [place] [address] 25405- 2237 Dec, [facility] [id number] [place] [address] 51152- 5776 Dec, Chronic pain G89.29 and Dysthymia F34.1 [facility] [id number] [place] [address] 17365- 4693 Nov, [facility] [id number] [place] [address] 44947- 8499 Nov, Hypokalemia E87.6 and Chronic pain G89.29 [facility] [id number] [place] [address] 87881- 4287 Nov, Back pain M54.9 and Pain in right knee M25.561 [facility] [id number] [address] Nov, [facility] [id number] [place] [address] 22055- 9946 Nov, Chronic pain G89.29 [facility] [id number] [place] [address] 16139 2546 Nov, Chronic pain G89.29 ; Weight loss R63.4 ; Bone pain M89.8X9 and Insomnia, unspecified type G47.00 [facility] [id number] [place] [address] 08624- 8678 Nov, Chronic pain G89.29 [facility] [id number] [place] [address] 05532 2546 Nov, Chronic pain G89.29 [facility] [id number] [place] [address] 37710- 6046 Oct, Chronic pain G89.29 [facility] [id number] [place] [address] 35215 254 Oct, UTI symptoms R39.9 [facility] [id number] [place] [address] 62600 2546 Oct, Chronic pain G89.29 [facility] [id number] [place] [address] 43766 2546 Oct, Chronic pain G89.29 [facility] [id number] [place] [address] 86814 2546 Oct, Chronic pain G89.29 [facility] [id number] [place] [address] 58518 2546 Oct, Right upper quadrant abdominal pain R10.11 [facility] [id number] [place] [address] 94881 2546 Oct, Chronic pain G89.29 [facility] [id number] [place] [address] 94117- 4090 Oct, [facility] [address] [address] September, Chronic pain G89.29 [facility] [id number] [place] [address] 26178- 8914 September, Dysuria R30.0 and Urinary tract infection without hematuria , site unspecified N39.0 [facility] [id number] [place] [address] 56734- 4132 September, [facility] [id number] [place] [address] 98738- 0157 September, Dysuria R30.0 [facility] [id number] [place] [address] 84505- 7876 September, Chronic pain G89.29 [facility] [id number] [place] [address] 66146- 2905 September, Chronic pain G89.29 and Essential hypertension I10 [facility] [id number] [place] [address] 03983- 8379 September, [facility] [id number] [place] [address] 33854- 1582 September, [facility] [id number] [place] [address] 92387- 0156 September, [facility] [id number] [place] [address] 30163- 6576 Aug, UTI symptoms R39.9 [facility] [id number] [place] [address] 42749- 2218 Aug, Dysuria R30.0 [facility] [id number] [place] [address] 93533- 6316 Aug, [facility] [id number] [place] [address] 23632- 1080 Aug, [facility] [id number] [place] [address] 16048- 7498 Aug, [facility] [id number] [place] [address] 92617- 6620 Aug, Chronic pain G89.29 [facility] [id number] [place] [address] 18007- 1692 Aug, Dysthymia F34.1 [facility] [id number] [place] [address] 69711- 2160 Aug, Conjunctivitis, unspecified conjunctivitis type, unspecified laterality H10.9 [facility] [id number] [place] [address] 41105- 2570 31 Jul, 2015 Chronic pain G89.29 ; Back pain M54.9 ; Tobacco abuse Z72.0 and Weight decrease R63.4 [facility] [id number] [place] [address] 11741- 1187 30 Jul, 2015 [facility] [id number] [place] [address] 75739- 9114 30 Jul, 2015 [facility] [id number] [place] [address] 38763- 2603 24 Jul, 2015 Chronic pain G89.29 [facility] [id number] [place] [address] 82925- 9712 22 Jul, 2015 [facility] [address] [address]- 6882 Jul, [facility] [address] [address]- 5093 18 Jul, 2015 [facility] [id number] [place] [address] 07423- 3739 17 Jul, 2015 [facility] [id number] [place] [address] 24957- 8664 17 Jul, 2015 Chronic pain G89.29 [facility] [address] [address]- 2506 16 Jul, 2015 Chronic pain G89.29 [facility] [address] [address]- 1773 Jul, [facility] [id number] [place] [address] 20271- 1705 Jul, [facility] [id number] [place] [address] 38643- 3910 Jul, [facility] [id number] [place] [address] 83837- 8922 Jul, [facility] [id number] [place] [address] 59015- 8676 Jun, [facility] [id number] [place] [address] 72680- 1402 Jun, Depression, unspecified depression type F32.9 [facility] [id number] [place] [address] 25779- 7694 Jun, Pain in right knee M25.561 [facility] [id number] [place] [address] 87289- 0837 Jun, Chronic pain G89.29 ; Back pain M54.9 ; Bone pain M89.8X9 and Weight loss R63.4 [facility] [id number] [place] [address] 32551- 1427 Jun, [facility] [id number] [place] [address] 40812- 4624 May, [facility] [id number] [place] [address] 34825- 0146 May, UTI symptoms R39.9 ; Pain in right knee M25.561 ; Right low back pain, with sciatica presence unspecified M54.5 ; Right foot pain M79.671 ; Hypokalemia E87.6 and Screening, lipid Z13.220 [facility] [id number] [place] [address] 70314- 4213 May, [facility] [address] [address]- 8167 May, [facility] [id number] [place] [address] 44758- 4666 Mar, [facility] [id number] [place] [address] 67370 2546 Mar, [facility] [id number] [place] [address] 82176- 4754 Mar, Hypokalemia E87.6 [facility] [id number] [place] [address] 34783- 8753 Mar, Encounter for immunization Z23 ; Pain in right leg M79.604 ; Pain in right knee M25.561 and Hypokalemia E87.6 [facility] [id number] [place] [address] 66737- 5566 Jan, [facility] [id number] [place] [address] 98670 2546 Jan, [facility] [id number] [place] [address] 73496- 5505 Jan, Abdominal pain, generalized 789.07 [facility] [id number] [place] [address] 80286 2543 Jan, Abdominal pain, generalized 789.07 [facility] [id number] [place] [address] 83948 2546 Dec, [facility] [id number] [place] [address] 63819 2542 Dec, [facility] [id number] [place] [address] 00403- 1506 Dec, [facility] [id number] [place] [address] 66647- 2549 Nov, Hallux valgus 735.0 and Hammertoe 735.4 [facility] [id number] [address]- 8617 Nov, [facility] [address] [address]- 1836 Nov, Hallux valgus 735.0 and Hammer toe 735.4 [facility] [id number] [address]- 1633 Oct, [facility] [address] [address]- 3118 Oct, [facility] [id number] [address]- 9937 Oct, Pre-op evaluation V72.84 [facility] [address] [address]- 1358 Oct, [facility] [address] [address]- 0826 Oct, [facility] [address] [address]- 8345 September, [facility] [address] [address]- 2656 September, [facility] [address] [address]- 9103 September, Hallux valgus (acquired) 735.0 and Other hammer toe ( acquired) 735.4 [facility] [id number] [address]- 4453 Aug, [facility] [id number] [address]- 6959 Aug, [facility] [id number] [address]- 5043 Jul, [facility] [id number] [address]- 1325 Jul, [facility] [address] [address]- 6476 Jul, 2014 [facility] [place] [facility] [address] [id number] [place] [address]- 3415 Jul, 2014 [facility] [place] [facility] [address] [facility] [id number] [place] [address]- 5738 Jul, 2014 [facility] [place] [facility] [address] [facility] [id number] [place] [address]- 1419 Jul, 2014 [facility] [place] [facility] [address] [facility] [id number] [place] [address]- 7567 Jul, 2014 [facility] [place] [facility] [address] [facility] [id number] [place] [address]- 9953 Jul, [facility] [place] [facility] [address] [facility] [id number] [place] [address]- 2058 Jun, 2014 [facility] [place] [facility] [address] [facility] [id number] [place] [address]- 7273 Jun, 2014 [facility] [place] [facility] [address] [facility] [id number] [place] [address]- 5303 Jun, 2014 [facility] [place] [facility] [address] [facility] [id number] [place] [address]- 5732 Jun, 2014 [facility] [place] [facility] [address] [facility] [id number] [place] [address]- 3101 Jun, 2014 [facility] [place] [facility] [address] [facility] [id number] [place] [address]- 5910 Jun, 2014 [facility] [place] [facility] [address] [facility] [id number] [place] [address]- 0537 Jun, 2014 [facility] [place] [facility] [address] [facility] [id number] [place] [address]- 3727 Jun, 2014 [facility] [place] [facility] [address] [facility] [id number] [place] [address]- 0091 Jun, 2014 [facility] [place] [facility] [address] [facility] [id number] [place] [address]- 0635 Jun, [facility] [place] [facility] [address] [id number] [place] [address]- 4496 May, [facility] [place] [facility] [address] [id number] [place] [address]- 0644 May, [facility] [place] [facility] [address] [id number] [place] [address]- 5443 May, [facility] [place] [facility] [address] [id number] [place] [address]- 7829 May, [facility] [place] [facility] [address] [id number] [place] [address]- 2871 May, [facility] [place] [facility] [address] [id number] [place] [address]- 5231 May, [facility] [place] [facility] [address] [id number] [place] [address]- 4656 May, [facility] [place] [facility] [address] [id number] [place] [address]- 3252 May, [facility] [place] [facility] [address] [id number] [place] [address]- 3096 May, [facility] [place] [facility] [address] [id number] [place] [address]- 6821 May, [facility] [place] [facility] [address] [id number] [place] [address]- 8249 May, [facility] [place] [facility] [address] [id number] [place] [address]- 7505 May, [facility] [place] [facility] [address] [id number] [place] [address]- 6705 May, [facility] [place] [facility] [address] [id number] [place] [address]- 8866 May, [facility] [place] [facility] [address] [id number] [place] [address]- 0753 May, [facility] [place] [facility] [address] [id number] [place] [address]- 2005 May, [facility] [place] [facility] [address] [id number] [place] [address]- 2389 May, [facility] [place] [facility] [address] [id number] [place] [address]- 5714 May, [facility] [place] [facility] [address] [id number] [place] [address]- 1999 Apr, [facility] [place] [facility] [address] [id number] [place] [address]- 2185 Apr, [facility] [place] [facility] [address] [id number] [place] [address]- 4805 Apr, [facility] [place] [facility] [address] [id number] [place] [address]- 1422 Apr, [facility] [place] [facility] [address] [id number] [place] [address]- 5934 Apr, [facility] [place] [facility] [address] [id number] [place] [address]- 0680 Apr, [facility] [place] [facility] [address] [id number] [place] [address]- 9613 Apr, [facility] [place] [facility] [address] [id number] [place] [address]- 4650 Apr, [facility] [place] [facility] [address] [id number] [place] [address]- 6927 Apr, [facility] [place] [facility] [address] [id number] [place] [address]- 8060 Mar, [facility] [place] [facility] [address] [id number] [place] [address]- 6918 Mar, [facility] [place] [facility] [address] [id number] [place] [address]- 9399 Mar, [facility] [place] [facility] [address] [id number] [place] [address]- 0297 Mar, [facility] [place] [facility] [address] [id number] [place] [address]- 5239 Mar, [facility] [place] [facility] [address] [id number] [place] [address]- 7615 Feb, 2013 [facility] [place] [facility] [address] [id number] [place] [address]- 0318 Feb, 2013 [facility] [place] [facility] [address] [id number] [place] [address]- 4615 Feb, [facility] [place] [facility] [address] [id number] [place] [address]- 1924 Feb, 2013 [facility] [place] [facility] [address] [id number] [place] 9831 Feb, [facility] [place] [facility] [address] [id number] [place] 6848 Feb, 2013 [facility] [place] [facility] [address] [id number] [place] [address]- 6529 Feb, [facility] [place] [facility] [address] [id number] [place] [address]- 7003 Feb, [facility] [place] [facility] [address] [id number] [place] [address]- 8228 Feb, [facility] [place] [facility] [address] [id number] [place] [address]- 1570 Feb, [facility] [place] [facility] [address] [id number] [place] [address]- 5664 Feb, [facility] [place] [facility] [address] [id number] [place] [address]- 9726 Feb, [facility] [place] [facility] [address] [id number] [place] [address]- 6562 Feb, [facility] [place] [facility] [address] [id number] [place] [address]- 8811 Feb, 2013 [facility] [place] [facility] [address] [id number] [place] 6575 Feb, [facility] [place] [facility] [address] [id number] [place] 1134 07 Feb, 2014 [facility] [place] [facility] [address] [id number] [place] [address]- 6306 Jan, [facility] [place] [facility] [address] [id number] [place] [address]- 5146 Jan, [facility] [place] [facility] [address] [id number] [place] [address]- 1679 20 Jan, 2013 [facility] [place] [facility] [address] [id number] [place] [address]- 3766 19 Jan, 2014 [facility] [place] [facility] [address] [id number] [place] [address]- 5434 Jan, [facility] [place] [facility] [address] [id number] [place] [address]- 4148 Jan, [facility] [place] [facility] [address] [id number] [place] [address]- 8499 Jan, [facility] [place] [facility] [address] [id number] [place] [address]- 0953 Jan, [facility] [place] [facility] [address] [id number] [place] [address]- 8329 Dec, [facility] [place] [facility] [address] [id number] [address]- 0498 Dec, [facility] [place] [facility] [address] [id number] [address]- 6999 Nov, [facility] [place] [facility] [address] [id number] [place] [address]- 9468 Nov, [facility] [place] [facility] [address] [id number] [place] [address]- 3967 Nov, [facility] [place] [facility] [address] [id number] [place] [address]- 7501 Nov, [facility] [place] [facility] [address] [id number] [place] 3425 Nov, [facility] [place] [facility] [address] [id number] [place] 9786 Nov, [facility] [place] [facility] [address] [id number] [place] 2838 Nov, [facility] [place] [facility] [address] [id number] [place] [address]- 3909 Nov, [facility] [place] [facility] [address] [id number] [place] [address]- 1104 Nov, [facility] [place] [facility] [address] [id number] [place] [address]- 7364 Oct, [facility] [place] [facility] [address] [id number] [place] [address]- 0714 Oct, [facility] [place] [facility] [address] [id number] [place] [address]- 8131 Oct, [facility] [place] [facility] [address] [id number] [place] [address]- 7588 Oct, [facility] [place] [facility] [address] [id number] [place] [address]- 8031 Oct, [facility] [place] [facility] [address] [id number] [place] [address]- 0266 Oct, [facility] [place] [facility] [address] [id number] [place] [address]- 0632 September, [facility] [place] [facility] [address] [id number] [place] [address]- 9221 September, [facility] [place] [facility] [address] [id number] [place] [address]- 8908 September, [facility] [place] [facility] [address] [id number] [place] [address]- 6871 September, [facility] [place] [facility] [address] [id number] [place] [address]- 7858 September, [facility] [place] [facility] [address] [id number] [place] [address]- 7933 September, [facility] [address] [id number] [place] [address]- 3278 September, [facility] [address] [id number] [place] [address]- 2146 September, [facility] [address] [id number] [place] [address]- 7030 September, [facility] [address] [id number] [place] [address]- 6325 September, [facility] [address] [id number] [place] [address]- 3134 September, [facility] [address] [id number] [place] [address]- 0304 September, [facility] [address] [id number] [place] [address]- 1267 September, [facility] [address] [id number] [place] [address]- 6555 September, [facility] [address] [id number] [place] [address]- 0477 September, [facility] [address] [id number] [place] [address]- 2154 September, [facility] [place] [facility] [address] [id number] [place] [address]- 5813 September, [facility] [place] [facility] [address] [id number] [place] [address]- 9161 September, [facility] [place] [facility] [address] [id number] [place] [address]- 3263 September, [facility] [place] [facility] [address] [id number] [place] [address]- 4618 September, [facility] [place] [facility] [address] [id number] [place] [address]- 0282 Aug, [facility] [place] [facility] [address] [id number] [place] [address]- 8995 29 Aug, 2013 [facility] [place] [facility] [address] [id number] [place] [address]- 8092 Aug, [facility] [place] [facility] [address] [id number] [place] [address]- 9886 Aug, [facility] [place] [facility] [address] [id number] [place] [address]- 9063 Aug, [facility] [place] [facility] [address] [id number] [place] [address]- 3312 18 Aug, 2013 [facility] [place] [facility] [address] [id number] [place] [address]- 4165 16 Aug, 2013 [facility] [place] [facility] [address] [id number] [place] [address] 16 Aug, 2013 [facility] [place] [facility] [address] [id number] [place] [address] 15 Aug, 2013 [facility] [place] [facility] [address] [id number] [place] [address] 15 Aug, 2013 [facility] [place] [facility] [address] [id number] [place] [address] 14 Aug, 2013 [facility] [place] [facility] [address] [id number] [place] [address] 05 Aug, 2013 [facility] [place] [facility] [address] [id number] [place] [address] Aug, [facility] [place] [facility] [address] [id number] [place] [address] Aug, [facility] [place] [facility] [address] [id number] [place] [address] Aug, [facility] [place] [facility] [address] [id number] [place] [address] Jul, [facility] [place] [facility] [address] [id number] [place] [address] 31 Jul, 2013 [facility] [place] [facility] [address] [id number] [place] [address]396 27 Jul, 2013 [facility] [place] [facility] [address] [id number] [place] [address] 27 Jul, 2013 [facility] [place] [facility] [address] [id number] [place] [address] Jul, [facility] [place] [facility] [address] [id number] [place] [address] Jul, [facility] [place] [facility] [address] [id number] [place] [address] 18 Jul, 2013 [facility] [place] [facility] [address] [id number] [place] [address] 8029 Jul, [facility] [place] [facility] [address] [id number] [place] [address]- [address] Jul, [facility] [place] [facility] [address] [id number] [place] [address] 06 Jul, 2013 [facility] [place] [facility] [address] [id number] [place] [address] Jul, [facility] [place] [facility] [address] [id number] [place] [address] Jul, [facility] [place] [facility] [address] [id number] [place] [address] Jul, [facility] [place] [facility] [address] [id number] [place] [address] 79[address] Jul, [facility] [place] [facility] [address] [id number] [place] [address] 68[address] Jul, [facility] [place] [facility] [address] [id number] [place] [address]- 2026 18 Jun, 2013 [facility] [place] [facility] [address] [id number] [place] [address] Jun, [facility] [place] [facility] [address] [id number] [place] [address] Jun, [facility] [place] [facility] [address] [id number] [place] [address]26 Jun, [facility] [place] [facility] [address] [id number] [place] [address] 1138 Jun, [facility] [place] [facility] [address] [id number] [place] [address]- 1580 Jun, [facility] [place] [facility] [address] [id number] [place] [address] 0719 May, [facility] [place] [facility] [address] [id number] [place] [address] 89[address] May, [facility] [place] [facility] [address] [id number] [place] [address] May, [facility] [place] [facility] [address] [id number] [place] [address] May, [facility] [place] [facility] [address] [id number] [place] [address]- 1804 May, [facility] [place] [facility] [address] [id number] [place] [address]- 3081 May, [facility] [place] [facility] [address] [id number] [place] [address]- 2726 May, [facility] [place] [facility] [address] [id number] [place] [address]- [address]952 May, [facility] [place] [facility] [address] [id number] [place] [address] May, [facility] [place] [facility] [address] [id number] [place] [address] May, [facility] [place] [facility] [address] [id number] [place] [address] 28[address] May, [facility] [place] [facility] [address] [id number] [place] [address] 39[address] May, [facility] [address] [id number] [place] [address] May, [facility] [address] [id number] [place] [address] May, [facility] [address] [id number] [place] [address]- 9777 May, [facility] [address] [id number] [place] [address] Apr, [facility] [address] [id number] [place] [address] Apr, [facility] [address] [id number] [place] [address] Apr, [facility] [address] [id number] [place] [address]- 6269 Apr, [facility] [address] [id number] [place] [address]156 Apr, [facility] [address] [id number] [place] [address] 1899 Apr, [facility] [address] [id number] [place] [address] 4995 Apr, [facility] [address] [id number] [place] [address]- 2543 Apr, [facility] [address] [id number] [place] [address]- 74[address] Apr, [facility] [address] [id number] [place] [address] Apr, [facility] [address] [id number] [place] [address]268 Mar, [facility] [address] [id number] [place] [address]- 8252 Mar, [facility] [place] [facility] [address] [id number] [place] [address]- [address]287 Mar, [facility] [place] [facility] [address] [id number] [place] [address] 3960 Mar, [facility] [place] [facility] [address] [address] [id number] [place] [address] Mar, [facility] [place] [facility] [address] [id number] [place] [address] Mar, [facility] [place] [facility] [address] [id number] [place] [address] 99[address] Mar, [facility] [place] [facility] [address] [id number] [place] [address] 75[address] Mar, [facility] [place] [facility] [address] [id number] [place] [address] 4557 Mar, [facility] [place] [facility] [address] [id number] [address] 99[address] Mar, [facility] [place] [facility] [address] [id number], [place] [address] 5[address] Mar, [facility] [place] [facility] [address] [id number] [address] 0[address] Mar, [facility] [place] [facility] [address] [id number] [address] 34[address] Mar, [facility] [place] [facility] [address] [id number] [address]- [address] 19 Mar, 2013 [facility] [place] [facility] [address] [id number] [address] 0445 18 Mar, 2013 [facility] [place] [facility] [address] [id number] [address] 7701 18 Mar, 2013 [facility] [place] [facility] [address] [id number] [address] 0212 14 Mar, 2013 [facility] [place] [facility] [address] [id number] [address]- 9338 14 Mar, 2013 [facility] [place] [facility] [address] [id number] [place] [address] 2525 Mar, [facility] [place] [facility] [address] [id number] [place] [address] 8920 Mar, [facility] [place] [facility] [address] [facility] [id number] [place] [address]- 8779 Mar, [facility] [place] [facility] [address] [id number] [place] [address]- 7272 Mar, [facility] [place] [facility] [address] [id number] [place] [address]- 3807 Mar, [facility] [place] [facility] [address] [id number] [place] [address] 6274 Feb, [facility] [place] [facility] [address] [facility] [id number] [place] [address] 9906 Feb, [facility] [place] [facility] [address] [id number] [place] [address]- 3055 Feb, [facility] [place] [facility] [address] [facility] [id number] [address] 7216 16 Feb, 2013 [facility] [place] [facility] [address] [facility] [id number] [address]- 4501 15 Feb, 2013 [facility] [place] [facility] [address] [facility] [id number][place] [address]- 0108 Feb, [facility] [place] [facility] [address] [facility] [id number], [place] [address]- 8890 Feb, [facility] [place] [facility] [address] [id number] [address] 6977 Feb, [facility] [place] [facility] [address] [facility] [id number], [place] [address]- 7732 04 Feb, 2013 [facility] [place] [facility] [address] [facility] [id number], [place] [address]- 0148 Feb, [facility] [place] [facility] [address] [id number] [place] [address]- 0306 30 Jan, 2012 [facility] [place] [facility] [address] [id number] [place] [address]- 4076 26 Jan, 2013 [facility] [place] [facility] [address] [id number] [place] [address]- 2546 24 Jan, 2013 [facility] [place] [facility] [address] [id number] [place] [address] 2546 23 Jan, 2013 [facility] [place] [facility] [address] [id number] [place] [address]- 4877 17 Jan, 2013 [facility] [place] [facility] [address] [id number] [place] [address]- [address]249 Dec, [facility] [place] [facility] [address] [id number] [place] [address]- 5097 Dec, [facility] [place] [facility] [address] [id number] [place] [address]- 1418 Dec, [facility] [place] [facility] [address] [id number] [place] [address]- 4210 Dec, [facility] [place] [facility] [address] [id number] [place] [address]- 4344 Dec, [facility] [place] [facility] [address] [id number] [place] [address]- 9404 Dec, [facility] [place] [facility] [address] [id number] [place] [address]- 1739 Dec, [facility] [place] [facility] [address] [id number] [place] [address]- 9445 Nov, [facility] [place] [facility] [address] [id number] [place] [address]- 4394 Nov, [facility] [place] [facility] [address] [id number] [place] [address]- 6270 Nov, [facility] [place] [facility] [address] [id number] [place] [address]- 2946 Nov, [facility] [address] [id number] [place] [address]- 3737 Nov, [facility] [place] [facility] [address] [id number] [place] [address]- 9060 Oct, [facility] [place] [facility] [address] [id number] [place] [address]- 8751 Oct, [facility] [place] [facility] [address] [id number] [place] [address]- 3501 Oct, [facility] [place] [facility] [address] [id number] [place] [address]- 3213 September, [facility] [place] [facility] [address] [id number] [place] [address]- 2824 September, [facility] [place] [facility] [address] [id number] [place] [address]- 9090 September, [facility] [place] [facility] [address] [id number] [place] [address]- 2203 September, [facility] [place] [facility] [address] [id number] [place] [address]- 5284 September, [facility] [place] [facility] [address] [id number] [place] [address]- 9071 September, [facility] [place] [facility] [address] [id number] [place] [address]- 5066 September, [facility] [place] [facility] [address] [id number] [place] [address]- 0271 30 Aug, 2012 [facility] [place] [facility] [address] [id number] [place] [address]- 9866 Aug, [facility] [place] [facility] [address] [id number] [place] [address]- 8460 Aug, [facility] [place] [facility] [address] [id number] [place] [address]- 9939 Jul, [facility] [place] [facility] [address] [id number] [place] [address]- 6552 27 Jul, 2012 [facility] [address] [id number] [place] [address]- 5747 26 Jul, 2012 [facility] [place] [facility] [address] [id number] [place] [address]- 3698 20 Jul, 2012 [facility] [place] [facility] [address] [id number] [place] [address] 2546 18 Jul, 2012 [facility] [place] [facility] [address] [id number] [place] [address] 2542 18 Jul, 2012 [facility] [place] [facility] [address] [id number] [place] [address]- 1442 13 Jul, 2012 [facility] [place] [facility] [address] [id number] [place] [address]- 3381 28 Jun, 2012 [facility] [place] [facility] [address] [id number] [place] [address]- 0609 27 Jun, 2012 [facility] [place] [facility] [address] [id number] [place] [address]- 6115 22 Jun, 2012 [facility] [place] [facility] [address] [id number] [place] [address]- 0605 20 Jun, 2012 [facility] [place] [facility] [address] [facility] [id number] [place] [address]- 0925 15 Jun, 2012 [facility] [place] [facility] [address] [facility] [id number] [place] [address] 2546 15 Jun, 2012 [facility] [place] [facility] [address] [id number] [place] [address] 2546 13 Jun, 2012 [facility] [place] [facility] [address] [id number] [place] [address] 2546 12 Jun, 2012 [facility] [place] [facility] [address] [facility] [id number] [place] [address] 2546 Jun, [facility] [place] [facility] [address] [facility] [id number] [place] [address]- 7616 Jun, [facility] [address] [id number] [place] [address]- 0707 May, [facility] [place] [facility] [address] [id number] [place] [address]- 6936 May, [facility] [place] [facility] [address] [facility] [id number] [place] [address] 2546 May, [facility] [place] [facility] [address] [id number] [place] [address]- 2546 May, [facility] [address] [id number] [place] [address]- 0670 May, [facility] [place] [facility] [address] [id number] [place] [address]- 4576 May, [facility] [place] [facility] [address] [id number] [place] [address]- 3461 Apr, [facility] [place] [facility] [address] [id number] [place] [address]- 6765 31 Apr, 2012 [facility] [place] [facility] [address] [id number] [place] [address]- 9440 Apr, [facility] [place] [facility] [address] [facility] [id number] [place] [address]- 9270 Apr, [facility] [place] [facility] [address] [id number] [place] [address]- 9134 Apr, [facility] [place] [facility] [address] [id number] [place] [address]- 7729 Apr, [facility] [place] [facility] [address] [id number] [place] [address]- 0016 Apr, [facility] [place] [facility] [address] [facility] [id number] [place] [address]- 3161 Mar, [facility] [place] [facility] [address] [facility] [id number] [place] [address]- 2546 Mar, [facility] [place] [facility] [address] [id number] [place] [address]- 3694 27 Mar, 2012 [facility] [place] [facility] [address] [id number] [place] [address]- 4326 Mar, [facility] [place] [facility] [address] [id number] [place] [address]- 4636 Mar, [facility] [place] [facility] [address] [id number] [place] [address]- 6452 Mar, [facility] [place] [facility] [address] [id number] [place] [address] 2544 Mar, [facility] [place] [facility] [address] [id number] [place] [address]- 6347 16 Mar, 2012 [facility] [place] [facility] [address] [id number] [place] [address]- 3250 16 Mar, 2012 [facility] [place] [facility] [address] [id number] [place] [address]- 2832 Mar, [facility] [place] [facility] [address] [id number] [place] [address]- 2399 Mar, [facility] [place] [facility] [address] [id number] [place] [address]- 8009 Mar, [facility] [place] [facility] [address] [facility] [id number] [place] [address]- 2731 Mar, [facility] [place] [facility] [address] [id number] [place] [address] 2549 Mar, [facility] [place] [facility] [address] [id number] [place] [address]- 2571 Mar, [facility] [place] [facility] [address] [id number] [place] [address]- 7978 Mar, [facility] [place] [facility] [address] [id number] [place] [address]- 4609 Mar, [facility] [place] [facility] [address] [id number] [place] [address]- 4615 Feb, [facility] [place] [facility] [address] [id number] [place] [address]- 2037 Feb, [facility] [place] [facility] [address] [id number] [place] 6913 Feb, [facility] [place] [facility] [address] [id number] [place] [address]- 6752 Feb, [facility] [place] [facility] [address] [id number] [place] [address]- 0636 Feb, [facility] [place] [facility] [address] [id number] [place] [address]- 8969 Feb, [facility] [place] [facility] [address] [id number] [place] [address]- 6553 Feb, [facility] [place] [facility] [address] [id number] [place] [address]- 8229 Feb, [facility] [place] [facility] [address] [id number] [place] [address]- 7165 05 Feb, 2012 [facility] [place] [facility] [address] [id number] [place] [address]- 5516 Feb, [facility] [place] [facility] [address] [id number] [place] [address]- 8060 02 Feb, 2012 [facility] [place] [facility] [address] [id number] [place] [address]- 8728 27 Jan, 2011 [facility] [place] [facility] [address] [id number] [address]- 2741 25 Sep, 2011 [facility] [place] [facility] [address] [id number] [place] [address]- 4122 13 Sep, 2011 [facility] [place] [facility] [address] [id number] [place] [address]- 1135 12 Sep, 2011 [facility] [place] [facility] [address] [id number] [place] 3710 07 Sep, 2011 [facility] [place] [facility] [address] [id number], [place] [address]- 8833 Dec, [facility] [place] [facility] [address] [id number] [place] [address]- 6482 Dec, [facility] [place] [facility] [address] [id number] [place] [address]- 3382 Dec, [facility] [place] [facility] [address] [id number] [place] [address]- 8720 Dec, [facility] [place] [facility] [address] [id number] [place] [address]- 3486 Dec, [facility] [place] [facility] [address] [id number] [place] [address]- 9393 Dec, [facility] [place] [facility] [address] [id number] [place] [address]- 2823 Dec, [facility] [place] [facility] [address] [id number] [place] [address]- 3472 Dec, [facility] [place] [facility] [address] [id number] [place] [address]- 5917 Nov, [facility] [place] [facility] [address] [id number] [place] [address]- 3921 Nov, [facility] [place] [facility] [address] [id number] [place] [address]- 8239 Nov, [facility] [place] [facility] [address] [id number] [place] [address]- 7412 Nov, [facility] [place] [facility] [address] [id number] [place] [address]- 5505 Nov, [facility] [place] [facility] [address] [id number] [place] [address]- 5555 Oct, [facility] [place] [facility] [address] [id number] [place] [address]- 1155 Oct, [facility] [place] [facility] [address] [id number] [place] [address]- 3927 September, [facility] [place] [facility] [address] [id number] [place] [address]- 4006 September, [facility] [address] [id number] [place] [address]- 7926 September, [facility] [address] [id number] [place] [address]- 3796 September, [facility] [address] [id number] [place] [address]- 9036 September, [facility] [address] [id number] [place] [address]- 1996 September, [facility] [address] [id number] [place] [address]- 0743 September, [facility] [address] [id number] [place] [address]- 2046 September, [facility] [address] [id number] [place] [address]- 4043 September, [facility] [address] [id number] [place] [address]- 7358 September, [facility] [address] [id number] [place] [address]- 3766 September, [facility] [address] [id number] [place] [address]- 8124 September, [facility] [address] [id number] [place] [address]- 4416 September, [facility] [address] [id number] [place] [address]- 3456 September, [facility] [address] [id number] [place] [address]- 4735 Aug, [facility] [address] [id number] [place] [address]- 3136 Aug, [facility] [address] [id number] [place] [address]- 5301 Aug, [facility] [address] [id number] [place] [address]- 3524 11 Aug, 2011 [facility] [place] [facility] [address] [id number] [place] [address]- 9666 23 Jul, 2011 [facility] [address] [id number] [place] [address]- 2182 13 Jul, 2011 [facility] [place] [facility] [address] [id number] [place] [address]- 6526 13 Jul, 2011 [facility] [address] [id number] [place] [address]- 0462 28 Jun, 2011 [facility] [id number] [id number] 26 Jun, 2011 [facility] [address] [id number] [address]- 2935 13 Jun, 2011 [facility] [address] [id number], [place] [address]- 3589 10 Jun, 2011 [facility] [address] [id number] [place] [address]- 3026 07 Jun, 2011 [facility] [place] [facility] [address] [id number] [place] [address]- 8242 07 Jun, 2011 [facility] [place] [facility] [address] [id number], [place] [address]- 6389 Jun, [facility] [place] [facility] [address] [id number][place] [address]- 7239 Jun, [facility] [place] [facility] [address] [id number] [place] [address]- 7840 May, [facility] [place] [facility] [address] [id number] [place] [address]- 0036 May, [facility] [place] [facility] [address] [id number] [place] [address]- 0152 May, [facility] [place] [facility] [address] [id number] [place] [address]- 4592 May, [facility] [address] [id number] [place] [address]- 4412 May, [facility] [place] [facility] [address] [id number] [place] [address]- 5123 May, [facility] [address] [id number] [place] [address]- 3830 May, [facility] [place] [facility] [address] [id number] [place] [address]- 9134 May, [facility] [address] [id number] [place] [address]- 1841 May, [facility] [address] [id number] [place] [address]- 6418 May, [facility] [address] [id number] [place] [address]- 4643 17 May, 2011 [facility] [address] [id number] [place] [address]- 5680 May, [facility] [address] [id number] [place] [address]- 3586 May, [facility] [address] [id number] [place] [address]- 6934 May, [facility] [address] [id number] [place] [address]- 5819 Apr, [facility] [place] [facility] [address] [id number] [place] [address]- 5947 Apr, [facility] [place] [facility] [address] [id number] [place] [address]- 5444 Apr, [facility] [place] [facility] [address] [id number] [place] [address]- 8826 Mar, [facility] [address] [id number] [place] [address]- 0656 Mar, [facility] [place] [facility] [address] [id number] [place] [address]- 5888 31 Feb, 2011 [facility] [place] [facility] [address] [id number] [place] [address]- 1376 26 Feb, 2011 [facility] [place] [facility] [address] [id number] [place] 5236 21 Feb, 2011 [facility] [place] [facility] [address] [id number] [place] [address]- 5596 20 Feb, 2011 [facility] [place] [facility] [address] [id number] [place] [address]- 4360 13 Feb, 2011 [facility] [place] [facility] [address] [id number] [place] [address]- 8056 28 Apr, 2010 [facility] [place] [facility] [address] [id number] [place] [address]- 4719 22 Apr, 2010 [facility] [place] [facility] [address] [id number] [place] [address]- 8084 16 Apr, 2010 [facility] [place] [facility] [address] [id number] [place] [address]- 9855 15 Apr, 2010 [facility] [place] [facility] [address] [id number] [place] [address]- 8104 15 Apr, 2010 [facility] [place] [facility] [address] [id number] [place] [address]- 3038 Apr, [facility] [place] [facility] [address] [id number] [place] [address]- 4588 24 Mar, 2010 [facility] [place] [facility] [address] [id number] [place] [address]- 3306 17 Mar, 2010 [facility] [place] [facility] [address] [id number] [place] [address] 17 Mar, 2010 [facility] [place] [facility] [address] [id number] [place] [address] 28 Feb, 2010 [facility] [place] [facility] [address] [id number] [address] Feb, [facility] [address] [facility] [id number] [address] Feb, [facility] [address] [facility] [id number] [address] Feb, [facility] [address] [id number] [address] Dec, [facility] [address] [facility] [id number], [place] [address] Dec, [facility] [address] [id number], [place] [address] Oct, [facility] [address] [id number], [place] [address] Mar, [facility] [address] [id number], [place] [address] Mar, [facility] [address] [facility] [id number], [place] [address] September, IMMUNIZATIONS No Known Immunizations SOCIAL HISTORY Never Assessed REASON FOR VISIT uti symptoms- does not think that it completly went away from the last uti a few weeks ago JStrasserRN PLAN OF CARE Activity Details Follow Up prn Reason: VITAL SIGNS Height 64 in 2017-08-03 Weight 132.4 lbs 2017-08-03 Temperature 98.3 degrees Fahrenheit 2017-08-03 Heart Rate 90 bpm 2017-08-03 Respiratory Rate 2017-08-03 BMI 22.72 kg/m2 2017-08-03 Blood pressure systolic 148 mmHg 2017-08-03 Blood pressure diastolic 100 mmHg 2017-08-03 MEDICATIONS Medication Instructions Dosage Frequency Start Date End Date Duration Status Hydrocodone-Acetaminophen 7.5-325 MG Orally every 6 hrs 1 tablet as needed 6h Jul, Active Toprol XL 50 MG Orally once daily 1 tablet 24h 24 Aug, 2016 90 Active Dicyclomine HCl 20 mg Orally 3 times a day 1 tablet 8h 20 Apr, 2017Oct 30 days Active Fluticasone Propionate 50 MCG/ACT Nasally twice a day 1 spray in each nostril 12h 09 Feb, 2017 30 day(s) Active Robaxin 500 mg Orally 4 times a day 1 tablet 6h 30 Active Ventolin HFA 108 (90 Base) MCG/ACT Inhalation every 4 hrs 2 puffs as needed 4h Nov, Active Lansoprazole 30 MG Orally Once a day 1 capsule 24h 30 days Active Bentyl 20 mg Orally Four times a day 1 tablet 6h Active Pantoprazole Sodium 40 MG Orally Once a day 1 tablet 24h Jun, 30 days Active Neurontin 100 mg Orally 3 times a day 1 capsule 8h September, 30 days Active Chlordiazepoxide HCl 10 MG Orally Three times a day 2 capsules 8h Aug, 28 days Active Acetaminophen-Codeine #3 300-30 MG Orally every 6 hrs 1 tablet as needed 6h Oct, 28 days Active RESULTS Name Result Date Reference Range UA LONG DIP (IN HOUSE) 2017-08-03 Lot # [id number] Exp date 2018-03-14 Clarity clear Color yellow Odor none GLU negative ANURAG negative KET negative SG 1.010 BLO trace-lysed pH 6.5 Protein negative URO 0.2 NIT negative LOUIE negative Lot # [id number] Exp date August 2017 PROCEDURES Procedure Date Ordered Result Body Site URINALYSIS, AUTO, W/O SCOPE August 03, 2017 [facility] VISIT ESTABLISHED PATIENT August 03, 2017 INSTRUCTIONS MEDICATIONS ADMINISTERED No Known [...]
--- NOTE | 2017-12-20 13:24 | ED General ---
General Chief Complaint: -Female Stated Complaint: SOB,UTI Source of Information: Patient, Family Exam Limitations: No Limitations History of Present Illness Date Seen by Provider: Dec 20, 2017 Time Seen by Provider: 13:00 Initial Comments Here with report of shortness of air as well as urinary tract symptoms. Complains of suprapubic abdominal pain and states this feels like her typical urinary tract infection. Onset of symptoms last night. Denies nausea or vomiting. Is reportedly weak. reports that she had blood pressure 60s systolic today and first blood pressure on arrival here was in the mid 70s systolic. This has improved but she has had blood pressures at home a few times that were low. Does have a little bit of shortness of breath and states it's typically her COPD. She reports that a little better now. Timing/Duration: 24 Hours Severity: Moderate Associated Systoms: No Chest Pain, No Fever/Chills, No Headaches; Nausea/ Vomiting, Shortness of Air; No Weakness Allergies and Home Medications Allergies Coded Allergies: Sulfa (Sulfonamide Antibiotics) (Verified Allergy, Unknown, 05/29/16) adhesive (Verified Allergy, Unknown, 05/29/16) fentanyl adhesive meperidine (Verified Allergy, Unknown, HALLUCINATIONS, 05/29/16) pregabalin (Verified Allergy, Unknown, 07/10/16) Home Medications Acetaminophen with Codeine 1 Each Tablet, 1 TAB PO Q6H PRN for PAIN-MODERATE, ( Reported) Albuterol Sulfate 1 Puff Puff, 2 PUFF IH Q4H PRN for SHORTNESS OF BREATH, ( Reported) 1 PUFF = 90 MCG Amlodipine Besylate 5 Mg Tablet, 5 MG PO DAILY, (Reported) Chlordiazepoxide HCl 10 Mg Capsule, 20 MG PO TID, (Reported) TAKES 2 (10MG) CAPSULES Dicyclomine HCl 20 Mg Tablet, 20 MG PO TID PRN for IBS, (Reported) Lansoprazole 15 Mg Capsule.dr, 15 MG PO DAILY, (Reported) Metoprolol Succinate 50 Mg Tab.er.24h, 50 MG PO DAILY PRN for BP>150, (Reported) Nitrofurantoin Monohyd/M-Cryst 100 Mg Capsule, 1 CAP PO DAILY, (Reported) Pantoprazole Sodium 40 Mg Tablet.dr, 40 MG PO DAILY, (Reported) Sodium Chloride 30 Ml [place], 1-2 SPRAYS NS DAILY PRN for CONGESTION, (Reported) Patient Home Medication List Home Medication List Reviewed: Yes Review of Systems Constitutional: see HPI; No chills, No fever EENTM: no symptoms reported Respiratory: short of breath; No wheezing Cardiovascular: No chest pain, No edema Gastrointestinal: abdominal pain; No nausea, No vomiting Genitourinary: dysuria, pain Musculoskeletal: no symptoms reported All Other Systems Reviewed Negative Unless Noted: Yes Past Xvsnylr-Moftpq-Lbylln Hx Past Med/Social Hx: Reviewed Nursing Past Med/Soc Hx Patient Social History Alcohol Use: Denies Use Recreational Drug Use: No Smoking Status: Current Everyday Smoker Type Used: Cigarettes 2nd Hand Smoke Exposure: Yes Recent Foreign Travel: No Contact w/Someone Who Travel: No Recent Hopitalizations: No (Emphysema, UTI admit 05/2016) Immunizations Up To Date Tetanus Booster (TDap): Less than 5yrs Date of Pneumonia Vaccine: Feb 27, 2017 Date of Influenza Vaccine: Feb 27, 2017 Seasonal Allergies Seasonal Allergies: Yes Past Medical History Surgeries: Yes (ADHESIOLYSIS X3, LEFT FOOT X2, C/S X2, HYSTERECTOMY, RIGHT KNEE ) Abdominal, Section, Hysterectomy, Joint Replacement, Orthopedic, Tonsillectomy Respiratory: Yes COPD Currently Using CPAP: No Cardiac: Yes Hypertension Neurological: No Headaches /Migraines 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 Disorders: No Sexually Transmitted Disease: No HIV/AIDS: No Genitourinary: Yes Kidney Stones, UTI-Chronic Gastrointestinal: Yes Gastroesophageal Reflux, Chronic Constipation, Irritable Bowel Musculoskeletal: Yes ("KNEE AND BACK PROBLEMS" "BULGING DISCS" ) Degenerate Disk Disease, Osteoporosis, Arthritis, Fibromyalgia, Chronic Back Pain Endocrine: No Loss of Vision: Bilateral Hearing Impairment: Denies Cancer: No Psychosocial: Yes (Pt states she had Bulemia years ago and lowest weight was 94 lbs ) Anxiety, PTSD, Depression Integumentary: No Blood Disorders: Yes (HX OF ANEMIA) Adverse Reaction/Blood Tranf: No (HAS FLUSHING BUT NO REACTION) Family Medical History Reviewed Nursing Family Hx Abdominal aortic aneurysm Alzheimer's disease 19 MOTHER Cardiovascular disease 19 FATHER ( AT 46 FROM HEART ATTACK) G8 SISTER Hypercholesterolemia 19 FATHER Hypertension 19 FATHER 19 MOTHER Myocardial infarction 19 FATHER Thyroid disease 19 MOTHER G8 SISTER Physical Exam-Suspected Sepsis Physical Exam Vital Signs Vital Signs - First Documented 12/20/17 13:28 Temp 95.9 Pulse 98 Resp 16 B/P (MAP) 73/43 (53) Pulse Ox 98 O2 Delivery Room Air Capillary Refill : Height, Weight, BMI Height: 5'4.00" Weight: 126lbs. 0.0oz. [id number]; 21.5 BMI Method:Stated General Appearance: WD/WN, Mild Distress HEENT: PERRL/EOMI, Pharynx Normal Neck: Non Tender, Supple Respiratory: Lungs Clear, Normal Breath Sounds Cardiovascular: Regular Rate, Rhythm, No Murmur Gastrointestinal: Non Tender, Soft Back: Normal Inspection, No CVA Tenderness, No Vertebral Tenderness Extremity: Normal Range of Motion, Non Tender 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: Alert, Oriented x3, Motor Weakness (global) Skin: normal color, warm/dry Focused Exam Lactate Level 12/20/17 13:14: Lactic Acid Level 3.50*H 12/20/17 15:21: Lactic Acid Level Laboratory Tests Test 12/20/17 13:14 12/20/17 15:21 Lactic Acid Level 3.50 MMOL/L (0.50-2.00) *H Progress/Results/Core Measures Suspected Sepsis SIRS Temperature: Pulse: Respiratory Rate: Laboratory Tests 12/20/17 13:14: White Blood Count 7.6 Blood Pressure / Mean: 12/20/17 13:14: Lactic Acid Level 3.50*H 12/20/17 15:21: Laboratory Tests 12/20/17 13:14: Creatinine 0.84, Platelet Count 199, Total Bilirubin 0.3 12/20/17 14:08: INR Comment 1.0 Results/Orders Lab Results Laboratory Tests Test 12/20/17 12:45 12/20/17 13:14 12/20/17 14:08 12/20/17 15:21 Range/Units Urine Color YELLOW Urine Clarity CLEAR Urine pH 5 5-9 Urine Specific [place] 1.015 L 1.016-1.022 Urine Protein 3+ H NEGATIVE Urine Glucose (UA) NEGATIVE NEGATIVE Urine Ketones NEGATIVE NEGATIVE Urine Nitrite POSITIVE H NEGATIVE Urine Bilirubin 2+ H NEGATIVE Urine Urobilinogen 1 NORMAL MG/DL Urine Leukocyte Esterase 3+ H NEGATIVE Urine RBC (Auto) 4+ H NEGATIVE Urine RBC 2-5 H /HPF Urine WBC TNTC H /HPF Urine Squamous Epithelial Cells NONE /HPF Urine Renal Epithelial Cells NONE /HPF Urine Crystals NONE /LPF Urine Bacteria TRACE /HPF Urine Casts NONE /LPF Urine Mucus NEGATIVE /LPF Urine Culture Indicated YES Urine Opiates Screen POSITIVE H NEGATIVE Urine Oxycodone Screen NEGATIVE NEGATIVE Urine Methadone Screen NEGATIVE NEGATIVE Urine Propoxyphene Screen NEGATIVE NEGATIVE Urine Barbiturates Screen NEGATIVE NEGATIVE Ur Tricyclic Antidepressants Screen NEGATIVE NEGATIVE Urine Phencyclidine Screen NEGATIVE NEGATIVE Urine Amphetamines Screen NEGATIVE NEGATIVE Urine Methamphetamines Screen POSITIVE H NEGATIVE Urine Benzodiazepines Screen POSITIVE H NEGATIVE Urine Cocaine Screen NEGATIVE NEGATIVE Urine Cannabinoids Screen NEGATIVE NEGATIVE White Blood Count 7.6 4.3-11.0 10^3/uL Red Blood Count 3.68 L 4.35-5.85 10^6/uL Hemoglobin 13.0 11.5-16.0 G/DL Hematocrit 39 35-52 % Mean Corpuscular Volume 105 H 80-99 FL Mean Corpuscular Hemoglobin 35 H 25-34 PG Mean Corpuscular Hemoglobin Concent 34 32-36 G/DL Red Cell Distribution Width 13.1 10.0-14.5 % Platelet Count 199 130-400 10^3/uL Mean Platelet Volume 10.0 7.4-10.4 FL Neutrophils (%) (Auto) 69 42-75 % Lymphocytes (%) (Auto) 22 12-44 % Monocytes (%) (Auto) 8 0-12 % Eosinophils (%) (Auto) 0 0-10 % Basophils (%) (Auto) 1 0-10 % Neutrophils # (Auto) 5.2 1.8-7.8 X 10^3 Lymphocytes # (Auto) 1.7 1.0-4.0 X 10^3 Monocytes # (Auto) 0.6 0.0-1.0 X 10^3 Eosinophils # (Auto) 0.0 0.0-0.3 10^3/uL Basophils # (Auto) 0.0 0.0-0.1 10^3/uL Sodium Level 132 L 135-145 MMOL/L Potassium Level 3.8 3.6-5.0 MMOL/L Chloride Level 104 98-107 MMOL/L Carbon Dioxide Level 17 L 21-32 MMOL/L Anion Gap 11 5-14 MMOL/L Blood Urea Nitrogen 8 7-18 MG/DL Creatinine 0.84 0.60-1.30 MG/DL Estimat Glomerular Filtration Rate > 60 BUN/Creatinine Ratio 10 Glucose Level 138 H 70-105 MG/DL Lactic Acid Level 3.50 *H 0.50-2.00 MMOL/L Calcium Level 9.3 8.5-10.1 MG/DL Corrected Calcium 9.5 8.5-10.1 MG/DL Total Bilirubin 0.3 0.1-1.0 MG/DL Aspartate Amino Transf (AST/SGOT) 43 H 5-34 U/L Alanine Aminotransferase (ALT/SGPT) 51 0-55 U/L Alkaline Phosphatase 72 40-136 U/L B-Type Natriuretic Peptide 54.3 <100.0 PG/ML Total Protein 6.6 6.4-8.2 GM/DL Albumin 3.7 3.2-4.5 GM/DL Prothrombin Time 13.2 12.2-14.7 SEC INR Comment 1.0 0.8-1.4 Activated Partial Thromboplast Time 26 24-35 SEC My Orders Orders - SONAM MCCABE MD Blood Culture (12/20/17 13:07) Sputum Culture (12/20/17 13:07) Urinalysis (12/20/17 13:07) Urine Culture (12/20/17 13:07) Chest 1 View, Ap/Pa Only (12/20/17 13:07) Vital Signs Adult Sepsis Patie Q15M (12/20/17 13:07) O2 (12/20/17 13:07) Remove Rings In Anticipation O (12/20/17 13:07) Lactic Acid Analyzer (12/20/17 13:07) Saline Lock/Iv-Start (12/20/17 13:07) Ns Iv 1000 Ml (Sodium Chloride 0.9%) (12/20/17 13:07) Protime With Inr (12/20/17 13:56) Partial Thromboplastin Time (12/20/17 13:56) Ketorolac Injection (Toradol Injection) (12/20/17 14:01) Drug Screen Stat (Urine) (12/20/17 14:13) Ceftriaxone Injection (Rocephin Injectio (12/20/17 15:30) Medications Given in ED Current Medications Medications Dose Ordered Sig/Lisa Route Start Time Stop Time Status Last Admin Dose Admin Sodium Chloride 1,000 ml @ 0 mls/hr Q0M ONCE IV 12/20/17 13:07 12/20/17 13:10 DC 12/20/17 13:17 1,000 MLS/HR Vital Signs/I&O 12/20/17 13:28 Temp 95.9 Pulse 98 Resp 16 B/P (MAP) 73/43 (53) Pulse Ox 98 O2 Delivery Room Air Capillary Refill : Progress Note : Progress Note Seen and evaluated. IV, labs, UA, chest x-ray, normal saline 1 L bolus ordered. Blood cultures and lactic acid ordered. Monitor patient. Patient is pain. Toradol 30 mg IV ordered due to concerns about blood pressure. Patient has remained normotensive throughout stay except for initial one blood pressure that was low. I discussed the case with Dr. Mayers at 1520 and she patient for admission, inpatient status to sepsis and urinary tract infection. She does not meet high-volume fluid resuscitation at this time and does not meet severe sepsis at this time. I do test the post exam at this time though. Rocephin 1 g IV. Patient to be admitted to the ICU due to the elevated lactic acid and her history. This is discussed with patient and family who agree with plan. Dr. Mayers see patient in the ER and write orders. Diagnostic Imaging Diagonstic Imaging: Xray Plain Films/CT/US/NM/MRI: chest Comments NAME: MANJINDER HUMPHRIES [facility] REC#: [id number] PT STATUS: REG ER : 1950 PHYSICIAN: SONAM MCCABE MD ADMIT DATE: 12/20/17/ER Signed Date of Exam: 12/20/17 CHEST 1 VIEW, AP/PA ONLY INDICATION: Weakness. TIME OF EXAM: 1:25 PM Comparison is made with prior chest from 06/02/2016. FINDINGS: The heart size is normal. The pulmonary vascularity is unremarkable. The lungs are clear. No infiltrate, effusion or pneumothorax is detected. IMPRESSION: No acute cardiopulmonary process is detected. Dictated by: Dictated on workstation # [id number] Dict: 12/20/17 1332 Trans: 12/20/17 133 Interpreted by: CHENCHO ECHEVARRIA MD Electronically signed by: CHENCHO ECHEVARRIA MD 12/20/17 1339 Departure Communication (Admissions) Time/Spoke to Admitting Phy: 15:20 Impression Primary Impression: Urinary tract infection Qualified Codes: N30.00 - Acute cystitis without hematuria Additional Impression: Sepsis Qualified Codes: A41.9 - Sepsis, unspecified organism Disposition: ADMITTED INPATIENT Condition: Stable Admissions Decision to Admit Reason: Admit from ER (General) Decision to Admit/Date: Dec 20, 2017 Time/Decision to Admit Time: 15:20 Departure-Patient Inst. Referrals: [facility] [place] (PCP) Primary Care Physician VALERIE ZAVALA (Family) Primary Care Physician SONAM MCCABE MD Dec 20, 2017 13:24
[2017-12-20 13:25] LABS: BASOPHILS % (AUTO) 1 % (0-10); EOSINOPHILS % (AUTO) 0 % (0-10); HEMATOCRIT 39 % (35-52); LYMPHOCYTES # (AUTO) 1.7 X 10^3 (1.0-4.0); LYMPHOCYTES % (AUTO) 22 % (12-44); MEAN CORPUSCULAR HEMOGLOBIN 35 PG (25-34); MEAN CORPUSCULAR HGB CONC 34 G/DL (32-36); MEAN CORPUSCULAR VOLUME 105 FL (80-99); MONOCYTES # (AUTO) 0.6 X 10^3 (0.0-1.0); MONOCYTES % (AUTO) 8 % (0-12); NEUTROPHILS # (AUTO) 5.2 X 10^3 (1.8-7.8); NEUTROPHILS % (AUTO) 69 % (42-75); PLATELET COUNT 199 10^3/uL (130-400); RED BLOOD COUNT 3.68 10^6/uL (4.35-5.85); RED CELL DISTRIBUTION WIDTH 13.1 % (10.0-14.5); WHITE BLOOD COUNT 7.6 10^3/uL (4.3-11.0)
--- NOTE | 2017-12-20 13:34 | Diagnostic Imaging Report ---
INDICATION: Weakness. TIME OF EXAM: 1:25 PM Comparison is made with prior chest from 06/02/2016. FINDINGS: The heart size is normal. The pulmonary vascularity is unremarkable. The lungs are clear. No infiltrate, effusion or pneumothorax is detected. IMPRESSION: No acute cardiopulmonary process is detected. Dictated by: Dictated on workstation # [id number]
[2017-12-20 13:37] LABS: CLARITY,URINE CLEAR; COLOR,URINE YELLOW; GLUCOSE, URINE (UA) NEGATIVE (NEGATIVE); KETONES,URINE NEGATIVE (NEGATIVE); LEUKOCYTE ESTERASE ,URINE 3+ (NEGATIVE); NITRITE,URINE POSITIVE (NEGATIVE); PH,URINE 5 (5-9); PROTEIN,URINE 3+ (NEGATIVE); UROBILINOGEN,URINE 1 MG/DL (NORMAL)
[2017-12-20 13:44] LABS: ALANINE AMINOTRANSFERASE 51 U/L (0-55); ALBUMIN 3.7 GM/DL (3.2-4.5); ALKALINE PHOSPHATASE 72 U/L (40-136); BILIRUBIN,TOTAL 0.3 MG/DL (0.1-1.0); BUN/CREATININE RATIO 10; CALCIUM 9.3 MG/DL (8.5-10.1); CARBON DIOXIDE 17 MMOL/L (21-32); CHLORIDE 104 MMOL/L (98-107); CREATININE SERUM 0.84 MG/DL (0.60-1.30); GFR ESTIMATED > 60; GLUCOSE 138 MG/DL (70-105); POTASSIUM 3.8 MMOL/L (3.6-5.0); SODIUM 132 MMOL/L (135-145); TOTAL PROTEIN 6.6 GM/DL (6.4-8.2)
--- OUTSIDE RECORDS SUMMARY | 2017-12-20 14:00 | XMS REPORT | Continuity of Care Document ---
Author Author [facility] Address Unknown Phone Unavailable Allergies Active Description Code Type Severity Reaction Onset Reported/Identified Relationship to Patient Clinical Status Yes fear of needles-will pass out OA N/A N/A 08/14/2008 Yes fear of needles-will pass out OA 08/14/2008 Yes hydrochlorothiazide Drug Allergy N/A N/A 01/27/2009 Yes hydrochlorothiazide Drug Allergy 01/27/2009 Yes sulfa drug Drug Allergy 06/23/2010 Yes acetaminophen [id number] Drug Allergy Unknown NAUSEA 10/29/2014 Yes hydrocodone [id number] Drug Allergy Unknown NAUSEA 10/29/2014 Yes fentanyl [id number] Drug Allergy Unknown N/A 01/01/2015 Yes acetaminophen [id number] Drug Allergy Unknown N/A 05/29/2016 Yes adhesive [id number] Drug Allergy Unknown N/A 05/29/2016 Yes hydrocodone [id number] Drug Allergy Unknown N/A 05/29/2016 Yes meperidine [id number] Drug Allergy Unknown HALLUCINATIONS 05/29/2016 Yes Sulfa (Sulfonamide Antibiotics) [id number] Drug Allergy Unknown N/A 2016 Yes pregabalin [id number] Drug Allergy Unknown N/A 07/10/2016 Medications There [...] Urine 08/14/2008 789.00 Abdominal Pain 08/14/2008 SALLY BEEF TRIMMER, VALERIE S 599.70 Blood In Urine 08/14/2008 SALLY BEEF TRIMMER, VALERIE S 789.00 Abdominal Pain 08/14/2008 YATES DO, KARO K 599.70 Blood In Urine 08/14/2008 YATES DO, KARO K 789.00 Abdominal Pain 08/14/2008 SALLY BEEF TRIMMER, VALERIE S 599.70 Blood In Urine 08/14/2008 SALLY BEEF TRIMMER, VALERIE S 789.00 Abdominal Pain 08/14/2008 SALLY BEEF TRIMMER, VALERIE S 599.70 Blood In Urine 08/14/2008 SALLY BEEF TRIMMER, VALERIE S 789.00 Abdominal Pain 08/14/2008 YATES [...] S 599.70 Blood In Urine 08/14/2008 SALLY BEEF TRIMMER, VALERIE S 789.00 Abdominal Pain 08/14/2008 YATES DO, KARO K 599.70 Blood In Urine 08/14/2008 YATES DO, KARO K 789.00 Abdominal Pain 08/14/2008 SALLY BEEF TRIMMER, VALERIE S 599.70 Blood In Urine 08/14/2008 SALLY BEEF TRIMMER, VALERIE S 789.00 Abdominal Pain 08/14/2008 YATES DO, KARO K 599.70 Blood In Urine 08/14/2008 YATES DO, KARO K 789.00 Abdominal Pain 08/14/2008 SALLY BEEF TRIMMER, VALERIE S 599.70 Blood In Urine 08/14/2008 SALLY BEEF TRIMMER, VALERIE S 789.00 Abdominal Pain 08/14/2008 SALLY BEEF TRIMMER, VALERIE S 599.70 Blood In Urine 08/14/2008 SALLY BEEF TRIMMER, VALERIE S 789.00 Abdominal Pain 08/14/2008 SALLY BEEF TRIMMER, VALERIE S 599.70 Blood In Urine 08/14/2008 SALLY BEEF TRIMMER, VALERIE S 789.00 Abdominal Pain 08/14/2008 SALLY BEEF TRIMMER, VALERIE S 599.70 Blood In Urine 08/14/2008 SALLY BEEF TRIMMER, VALERIE S 789.00 Abdominal Pain 08/14/2008 SALLY BEEF TRIMMER, VALERIE S 599.70 Blood In Urine 08/14/2008 SALLY BEEF TRIMMER, VALERIE S 789.00 Abdominal Pain 08/14/2008 SALLY BEEF TRIMMER, VALERIE S 599.70 Blood In Urine 08/14/2008 SALLY BEEF TRIMMER, VALERIE S 789.00 Abdominal Pain 08/14/2008 SALLY BEEF TRIMMER, VALERIE S 599.70 Blood In Urine 08/14/2008 SALLY BEEF TRIMMER, VALERIE S 789.00 Abdominal Pain 08/14/2008 YATES DO, KARO K 599.70 Blood In Urine 08/14/2008 YATES DO, KARO K 789.00 Abdominal Pain 08/14/2008 SALLY BEEF TRIMMER, VALERIE S 599.70 Blood In Urine 08/14/2008 SALLY BEEF TRIMMER, VALERIE S 789.00 Abdominal Pain 08/14/2008 YATES DO, KARO K 599.70 Blood In Urine 08/14/2008 YATES DO, KARO K 789.00 Abdominal Pain 08/14/2008 SALLY BEEF TRIMMER, VALERIE S 599.70 Blood In Urine 08/14/2008 SALLY BEEF TRIMMER, VALERIE S 789.00 Abdominal Pain 08/14/2008 SALLY BEEF TRIMMER, VALERIE S 599.70 Blood In Urine 08/14/2008 SALLY BEEF TRIMMER, VALERIE S 789.00 Abdominal Pain 08/14/2008 SALLY BEEF TRIMMER, VALERIE S 599.70 Blood In Urine 08/14/2008 SALLY BEEF TRIMMER, VALERIE S 789.00 Abdominal Pain 08/14/2008 YATES DO, KARO K 599.70 Blood In Urine 08/14/2008 YATES DO, KARO K 789.00 Abdominal Pain 08/14/2008 SALLY BEEF TRIMMER, VALERIE S 599.70 Blood In Urine 08/14/2008 SALLY BEEF TRIMMER, VALERIE S 789.00 Abdominal Pain 09/09/2008 YATES DO, KARO K 599.0 Urinary Tract Infection 09/09/2008 YATES DO, KARO K 599.0 Urinary Tract Infection 09/09/2008 TACO BEEF TRIMMER, ZORAIDA R 599.0 Urinary Tract Infection 09/09/2008 599.0 Urinary Tract Infection 09/09/2008 SALLY BEEF TRIMMER, VALERIE S 599.0 Urinary Tract Infection 09/09/2008 YATES DO, KARO K 599.0 Urinary Tract Infection 09/09/2008 SALLY BEEF TRIMMER, VALERIE S 599.0 Urinary Tract Infection 09/09/2008 SALLY BEEF TRIMMER, VALERIE S 599.0 Urinary Tract Infection 09/09/2008 YATES DO, KARO K 599.0 Urinary Tract Infection 09/09/2008 599.0 Urinary Tract Infection 09/09/2008 599.0 Urinary Tract Infection 09/09/2008 599.0 Urinary Tract Infection 09/09/2008 MICHELLE CAMARGO MD 599.0 Urinary Tract Infection 09/09/2008 SALLY BEEF TRIMMER, VALERIE S 599.0 Urinary Tract Infection 09/09/2008 SALLY BEEF TRIMMER, VALERIE S 599.0 Urinary Tract Infection 09/09/2008 YATES DO, KARO K 599.0 Urinary Tract Infection 09/09/2008 SALLY BEEF TRIMMER, VALERIE S 599.0 Urinary Tract Infection 09/09/2008 YATES DO, KARO K 599.0 Urinary Tract Infection 09/09/2008 SALLY BEEF TRIMMER, VALERIE S 599.0 Urinary Tract Infection 09/09/2008 SALLY BEEF TRIMMER, VALERIE S 599.0 Urinary Tract Infection 09/09/2008 SALLY BEEF TRIMMER, VALERIE S 599.0 Urinary Tract Infection 09/09/2008 SALLY BEEF TRIMMER, VALERIE S 599.0 Urinary Tract Infection 09/09/2008 SALLY BEEF TRIMMER, VALERIE S 599.0 Urinary Tract Infection 09/09/2008 SALLY BEEF TRIMMER, VALERIE S 599.0 Urinary Tract Infection 09/09/2008 SALLY BEEF TRIMMER, VALERIE S 599.0 Urinary Tract Infection 09/09/2008 YATES DO, KARO K 599.0 Urinary Tract Infection 09/09/2008 SALLY BEEF TRIMMER, VALERIE S 599.0 Urinary Tract Infection 09/09/2008 YATES DO, KARO K 599.0 Urinary Tract Infection 09/09/2008 SALLY BEEF TRIMMER, VALERIE S 599.0 Urinary Tract Infection 09/09/2008 SALLY BEEF TRIMMER, VALERIE S 599.0 Urinary Tract Infection 09/09/2008 SALLY BEEF TRIMMER, VALERIE S 599.0 Urinary Tract Infection 09/09/2008 YATES DO, KARO K 599.0 Urinary Tract Infection 09/09/2008 SALLY BEEF TRIMMER, VALERIE S 599.0 Urinary Tract Infection 09/30/2008 YATES DO, KARO K 564.1 IRRITABLE BOWEL SYNDROME 09/30/2008 YATES DO, KARO K 724.2 LUMBAGO 09/30/2008 YATES DO, KARO K 564.1 IRRITABLE BOWEL SYNDROME 09/30/2008 YATES DO, KARO K 724.2 LUMBAGO 09/30/2008 CHARLEEN ESPAÑA APRNRICIA R 564.1 IRRITABLE BOWEL SYNDROME 09/30/2008 TACO BEEF TRIMMER ZORAIDA R 724.2 LUMBAGO 09/30/2008 564.1 IRRITABLE BOWEL SYNDROME 09/30/2008 724.2 LUMBAGO 09/30/2008 SALLY BEEF TRIMMER, VALERIE S 564.1 IRRITABLE BOWEL SYNDROME 09/30/2008 SALLY BEEF TRIMMER, VALERIE S 724.2 LUMBAGO 09/30/2008 YATES DO, KARO K 564.1 IRRITABLE BOWEL SYNDROME 09/30/2008 YATES DO, KARO K 724.2 LUMBAGO 09/30/2008 SALLY BEEF TRIMMER, VALERIE S 564.1 IRRITABLE BOWEL SYNDROME 09/30/2008 [...] S 564.1 IRRITABLE BOWEL SYNDROME 09/30/2008 SALLY BEEF TRIMMER, VALERIE S 724.2 LUMBAGO 09/30/2008 SALLY BEEF TRIMMER, VALERIE S 564.1 IRRITABLE BOWEL SYNDROME 09/30/2008 SALLY BEEF TRIMMER, VALERIE S 724.2 LUMBAGO 09/30/2008 SALLY BEEF TRIMMER, VALERIE S 564.1 IRRITABLE BOWEL SYNDROME 09/30/2008 SALLY BEEF TRIMMER, VALERIE S 724.2 LUMBAGO 09/30/2008 SALLY BEEF TRIMMER, VALERIE S 564.1 IRRITABLE BOWEL SYNDROME 09/30/2008 SALLY BEEF TRIMMER, VALERIE S 724.2 LUMBAGO 09/30/2008 SALLY BEEF TRIMMER, VALERIE S 564.1 IRRITABLE BOWEL SYNDROME 09/30/2008 SALLY BEEF TRIMMER, VALERIE S 724.2 LUMBAGO 09/30/2008 SALLY BEEF TRIMMER, VALERIE S 564.1 IRRITABLE BOWEL SYNDROME 09/30/2008 SALLY BEEF TRIMMER, VAELRIE S 724.2 LUMBAGO 09/30/2008 YATES DO, KARO K 564.1 IRRITABLE BOWEL SYNDROME 09/30/2008 YATES DO, KARO K 724.2 LUMBAGO 09/30/2008 SALLY BEEF TRIMMER, VALERIE S 564.1 IRRITABLE BOWEL SYNDROME 09/30/2008 SALLY BEEF TRIMMER, VALERIE S 724.2 LUMBAGO 09/30/2008 YATES DO, KARO K 564.1 IRRITABLE BOWEL SYNDROME 09/30/2008 YATES DO, KARO K 724.2 LUMBAGO 09/30/2008 SALLY BEEF TRIMMER, VALERIE S 564.1 IRRITABLE BOWEL SYNDROME 09/30/2008 SALLY BEEF TRIMMER, VALERIE S 724.2 LUMBAGO 09/30/2008 SALLY BEEF TRIMMER, VALERIE S 564.1 IRRITABLE BOWEL SYNDROME 09/30/2008 SALLY BEEF TRIMMER, VALERIE S 724.2 LUMBAGO 09/30/2008 SALLY BEEF TRIMMER, VALERIE S 564.1 IRRITABLE BOWEL SYNDROME 09/30/2008 SALLY BEEF TRIMMER, VALERIE S 724.2 LUMBAGO 09/30/2008 YATES DO, KARO K 564.1 IRRITABLE BOWEL SYNDROME 09/30/2008 YATES DO, KARO K 724.2 LUMBAGO 09/30/2008 SALLY BEEF TRIMMER, VALERIE S 564.1 IRRITABLE BOWEL SYNDROME 09/30/2008 SALLY BEEF TRIMMER, VALERIE S 724.2 LUMBAGO 10/21/2008 YATES DO, KARO K 788.1 Dysuria 10/21/2008 YATES DO, KARO K 788.1 Dysuria 10/21/2008 TACO BEEF TRIMMER, ZORAIDA R 788.1 Dysuria 10/21/2008 788.1 Dysuria 10/21/2008 SALLY BEEF TRIMMER, VALERIE S 788.1 Dysuria 10/21/2008 YATES DO, KARO K 788.1 Dysuria 10/21/2008 SALLY BEEF TRIMMER, VALERIE S 788.1 Dysuria 10/21/2008 SALLY BEEF TRIMMER, VALERIE S 788.1 Dysuria 10/21/2008 YATES DO, KARO K 788.1 Dysuria 10/21/2008 788.1 Dysuria 10/21/2008 788.1 Dysuria 10/21/2008 788.1 Dysuria 10/21/2008 MARY JO ABRAMS, MICHELLE 788.1 Dysuria 10/21/2008 SALLY BEEF TRIMMER, VALERIE S 788.1 Dysuria 10/21/2008 SALLY BEEF TRIMMER, VALERIE S 788.1 Dysuria 10/21/2008 YATES DO, KARO K 788.1 Dysuria 10/21/2008 SALLY BEEF TRIMMER, VALERIE S 788.1 Dysuria 10/21/2008 YATES DO, KARO K 788.1 Dysuria 10/21/2008 SALLY BEEF TRIMMER, VALERIE S 788.1 Dysuria 10/21/2008 SALLY BEEF TRIMMER, VALERIE S 788.1 Dysuria 10/21/2008 SALLY BEEF TRIMMER, VALERIE S 788.1 Dysuria 10/21/2008 SALLY BEEF TRIMMER, VALERIE S 788.1 Dysuria 10/21/2008 SALLY BEEF TRIMMER, VALERIE S 788.1 Dysuria 10/21/2008 SALLY BEEF TRIMMER, VALERIE S 788.1 Dysuria 10/21/2008 SALLY BEEF TRIMMER, VALERIE S 788.1 Dysuria 10/21/2008 YATES DO, KARO K 788.1 Dysuria 10/21/2008 SALLY BEEF TRIMMER, VALERIE S 788.1 Dysuria 10/21/2008 YATES DO, KARO K 788.1 Dysuria 10/21/2008 SALLY BEEF TRIMMER, VALERIE S 788.1 Dysuria 10/21/2008 SALLY BEEF TRIMMER, VALERIE S 788.1 Dysuria 10/21/2008 SALLY BEEF TRIMMER, VALERIE S 788.1 Dysuria 10/21/2008 YATES DO, KARO K 788.1 Dysuria 10/21/2008 SALLY BEEF TRIMMER, VALERIE S 788.1 Dysuria 01/13/2009 YATES DO, KARO K 300.00 Anxiety State Unspecified 01/13/2009 YATES DO, KARO K 401.9 UNSPECIFIED ESSENTIAL HYPERTENSION 01/13/2009 YATES DO, KARO K 300.00 Anxiety State Unspecified 01/13/2009 YATES DO, KARO K 401.9 UNSPECIFIED ESSENTIAL HYPERTENSION 01/13/2009 ESPAÑA BEEF TRIMMER, ZORAIDA R 300.00 Anxiety State Unspecified 01/13/2009 ESPAÑA BEEF TRIMMER, ZORAIDA R 401.9 UNSPECIFIED ESSENTIAL HYPERTENSION 01/13/2009 300.00 Anxiety State Unspecified 01/13/2009 401.9 UNSPECIFIED ESSENTIAL HYPERTENSION 01/13/2009 SALLY BEEF TRIMMER, VALERIE S 300.00 Anxiety State Unspecified 01/13/2009 SALLY BEEF TRIMMER, VALERIE S 401.9 UNSPECIFIED ESSENTIAL HYPERTENSION 01/13/2009 YATES DO, KARO K 300.00 Anxiety State Unspecified 01/13/2009 YATES DO, KARO K 401.9 UNSPECIFIED ESSENTIAL HYPERTENSION 01/13/2009 SALLY BEEF TRIMMER, VALERIE S 300.00 Anxiety State Unspecified 01/13/2009 SALLY BEEF TRIMMER, VALERIE S 401.9 UNSPECIFIED ESSENTIAL HYPERTENSION 01/13/2009 SALLY BEEF TRIMMER, VALERIE S 300.00 Anxiety State Unspecified 01/13/2009 SALLY BEEF TRIMMER, VALERIE S 401.9 UNSPECIFIED ESSENTIAL HYPERTENSION 01/13/2009 [...] MD 401.9 UNSPECIFIED ESSENTIAL HYPERTENSION 01/13/2009 SALLY BEEF TRIMMER VALERIE S 300.00 Anxiety State Unspecified 01/13/2009 SALLY RIVERA VALERIE S 401.9 UNSPECIFIED ESSENTIAL HYPERTENSION 01/13/2009 SALLY PERSAUDN VALERIE S 300.00 Anxiety State Unspecified 01/13/2009 SERINA ZAVALA APRNNDA S 401.9 UNSPECIFIED ESSENTIAL HYPERTENSION 01/13/2009 YATES DO, KARO K 300.00 Anxiety State Unspecified 01/13/2009 YATES DO, KARO K 401.9 UNSPECIFIED ESSENTIAL HYPERTENSION 01/13/2009 SALLY BEEF TRIMMER VALERIE S 300.00 Anxiety State Unspecified 01/13/2009 SALLY BEEF TRIMMER VALERIE S 401.9 UNSPECIFIED ESSENTIAL HYPERTENSION 01/13/2009 YATES DO, KARO K 300.00 Anxiety State Unspecified 01/13/2009 YATES DO, KARO K 401.9 UNSPECIFIED ESSENTIAL HYPERTENSION 01/13/2009 SALLY BEEF TRIMMER, VALERIE S 300.00 Anxiety State Unspecified 01/13/2009 SALLY BEEF TRIMMER, VALERIE S 401.9 UNSPECIFIED ESSENTIAL HYPERTENSION 01/13/2009 SALLY BEEF TRIMMER, VALERIE S 300.00 Anxiety State Unspecified 01/13/2009 SALLY BEEF TRIMMER VALERIE S 401.9 UNSPECIFIED ESSENTIAL HYPERTENSION 01/13/2009 SALLY BEEF TRIMMER, VALERIE S 300.00 Anxiety State Unspecified 01/13/2009 SALLY BEEF TRIMMER, VALERIE S 401.9 UNSPECIFIED ESSENTIAL HYPERTENSION 01/13/2009 SALLY BEEF TRIMMER, VALERIE S 300.00 Anxiety State Unspecified 01/13/2009 SALLY BEEF TRIMMER, VALERIE S 401.9 UNSPECIFIED ESSENTIAL HYPERTENSION 01/13/2009 SALLY BEEF TRIMMER, VALERIE S 300.00 Anxiety State Unspecified 01/13/2009 SALLY BEEF TRIMMER, VALERIE S 401.9 UNSPECIFIED ESSENTIAL HYPERTENSION 01/13/2009 SALLY BEEF TRIMMER, VALERIE S 300.00 Anxiety State Unspecified 01/13/2009 SALLY BEEF TRIMMER, VALERIE S 401.9 UNSPECIFIED ESSENTIAL HYPERTENSION 01/13/2009 SALLY BEEF TRIMMER, VALERIE S 300.00 Anxiety State Unspecified 01/13/2009 SALLY BEEF TRIMMER, VALERIE S 401.9 UNSPECIFIED ESSENTIAL HYPERTENSION 01/13/2009 YATES DO, KARO K 300.00 Anxiety State Unspecified 01/13/2009 YATES DO, KARO K 401.9 UNSPECIFIED ESSENTIAL HYPERTENSION 01/13/2009 SALLY BEEF TRIMMER, VALERIE S 300.00 Anxiety State Unspecified 01/13/2009 SALLY BEEF TRIMMER, VALERIE S 401.9 UNSPECIFIED ESSENTIAL HYPERTENSION 01/13/2009 YATES DO, KARO K 300.00 Anxiety State Unspecified 01/13/2009 YATES DO, KARO K 401.9 UNSPECIFIED ESSENTIAL HYPERTENSION 01/13/2009 SALLY BEEF TRIMMER, VALERIE S 300.00 Anxiety State Unspecified 01/13/2009 SALLY BEEF TRIMMER, VALERIE S 401.9 UNSPECIFIED ESSENTIAL HYPERTENSION 01/13/2009 SALLY BEEF TRIMMER, VALERIE S 300.00 Anxiety State Unspecified 01/13/2009 SALLY BEEF TRIMMER, VALERIE S 401.9 UNSPECIFIED ESSENTIAL HYPERTENSION 01/13/2009 SALLY BEEF TRIMMER, VALERIE S 300.00 Anxiety State Unspecified 01/13/2009 SALLY BEEF TRIMMER, VALERIE S 401.9 UNSPECIFIED ESSENTIAL HYPERTENSION 01/13/2009 YATES DO, KARO K 300.00 Anxiety State Unspecified 01/13/2009 YATES DO, KARO K 401.9 UNSPECIFIED ESSENTIAL HYPERTENSION 01/13/2009 SALLY BEEF TRIMMER, VALERIE S 300.00 Anxiety State Unspecified 01/13/2009 SALLY BEEF TRIMMER, VALERIE S 401.9 UNSPECIFIED ESSENTIAL HYPERTENSION 03/25/2009 YATES DO, KARO K 296.90 Episodic Mood Disorders 03/25/2009 YATES DO, KARO K 780.79 Feelings Of Weakness 03/25/2009 YATES DO, KARO K 787.91 Diarrhea 03/25/2009 YATES DO, KARO K 296.90 Episodic Mood Disorders 03/25/2009 YATES DO, KARO K 780.79 Feelings Of Weakness 03/25/2009 YATES DO, KARO K 787.91 Diarrhea 03/25/2009 ESPAÑA BEEF TRIMMER, ZORAIDA R 296.90 Episodic Mood Disorders 03/25/2009 ESPAÑA BEEF TRIMMER, ZORAIDA R 780.79 Feelings Of Weakness 03/25/2009 ESPAÑA BEEF TRIMMER, ZORAIDA R 787.91 Diarrhea 03/25/2009 296.90 Episodic [...] S 780.79 Feelings Of Weakness 03/25/2009 SALLY BEEF TRIMMER, VALERIE S 787.91 Diarrhea 03/25/2009 YATES DO, [...] DO, KARO K 787.91 Diarrhea 03/25/2009 SALLY BEEF TRIMMER, VALERIE S 296.90 Episodic Mood Disorders 03/25/2009 SALLY RIVERA VALERIE S 780.79 Feelings Of Weakness 03/25/2009 SALLY BEEF TRIMMER VALERIE S 787.91 Diarrhea 03/25/2009 SALLY BEEF TRIMMER VALERIE S 296.90 Episodic Mood Disorders 03/25/2009 [...] S 296.90 Episodic Mood Disorders 03/25/2009 SALLY BEEF TRIMMER, VALERIE S 780.79 Feelings Of Weakness 03/25/2009 SALLY RIVERA VALERIE S 787.91 Diarrhea 03/25/2009 SALLY BEEF TRIMMER, VALERIE S 296.90 Episodic Mood Disorders 03/25/2009 SALLY BEEF TRIMMER, VALERIE S 780.79 Feelings Of Weakness 03/25/2009 [...] ABRAMS, MICHELLE 599.71 Gross Hematuria 10/20/2009 SALLY BEEF TRIMMER, VALERIE S 599.71 Gross Hematuria 10/20/2009 SALLY BEEF TRIMMER, VALERIE S 599.71 Gross Hematuria 10/20/2009 YATES DO, KARO K 599.71 Gross Hematuria 10/20/2009 SALLY BEEF TRIMMER, VALERIE S 599.71 Gross Hematuria 10/20/2009 YATES DO, KARO K 599.71 Gross Hematuria 10/20/2009 SALLY BEEF TRIMMER, VALERIE S 599.71 Gross Hematuria 10/20/2009 SALLY BEEF TRIMMER, VALERIE S 599.71 Gross Hematuria 10/20/2009 SALLY BEEF TRIMMER, VALERIE S 599.71 Gross Hematuria 10/20/2009 SALLY BEEF TRIMMER, VALERIE S 599.71 Gross Hematuria 10/20/2009 SALLY BEEF TRIMMER, VALERIE S 599.71 Gross Hematuria 10/20/2009 SALLY BEEF TRIMMER, VALERIE S 599.71 Gross Hematuria 10/20/2009 SALLY BEEF TRIMMER, VALERIE S 599.71 Gross Hematuria 10/20/2009 YATES DO, KARO K 599.71 Gross Hematuria 10/20/2009 SALLY BEEF TRIMMER, VALERIE S 599.71 Gross Hematuria 10/20/2009 YATES DO, KARO K 599.71 Gross Hematuria 10/20/2009 SALLY BEEF TRIMMER, VALERIE S 599.71 Gross Hematuria 10/20/2009 SALLY BEEF TRIMMER, VALERIE S 599.71 Gross Hematuria 10/20/2009 SALLY BEEF TRIMMER, VALERIE S 599.71 Gross Hematuria 10/20/2009 YATES DO, KARO K 599.71 Gross Hematuria 10/20/2009 SALLY BEEF TRIMMER, VALERIE S 599.71 Gross Hematuria 10/27/2009 YATES [...] KARO K 788.41 Urinary Frequency 10/27/2009 ESPAÑA BEEF TRIMMER, ZORAIDA R 305.1 NICOTINE DEPENDENCE 10/27/2009 ESPAÑA BEEF TRIMMER, ZORAIDA R 307.40 Insomnia 10/27/2009 ESPAÑA BEEF TRIMMER, ZORAIDA R 536.8 Dyspepsia And Other Specified Disorders Of Function Of Stomach 10/27/2009 ESPAÑA BEEF TRIMMER, ZORAIDA R 788.41 Urinary Frequency 10/27/2009 305.1 NICOTINE DEPENDENCE 10/27/2009 307.40 Insomnia 10/27/2009 536.8 Dyspepsia And Other Specified Disorders Of Function Of Stomach 10/27/2009 788.41 Urinary Frequency 10/27/2009 SALLY BEEF TRIMMER, VALERIE S 305.1 NICOTINE DEPENDENCE 10/27/2009 SALLY BEEF TRIMMER, VALERIE S 307.40 Insomnia 10/27/2009 SALLY BEEF TRIMMER, VALERIE S 536.8 Dyspepsia And Other Specified Disorders Of Function Of Stomach 10/27/2009 SALLY BEEF TRIMMER, VALERIE S 788.41 Urinary Frequency 10/27/2009 YATES DO, KARO K 305.1 NICOTINE DEPENDENCE 10/27/2009 YATES DO, KARO K 307.40 Insomnia 10/27/2009 YATES DO, KARO K 536.8 Dyspepsia And Other Specified Disorders Of Function Of Stomach 10/27/2009 YATES DO, KARO K 788.41 Urinary Frequency 10/27/2009 SALLY BEEF TRIMMER, VALERIE S 305.1 NICOTINE DEPENDENCE 10/27/2009 SALLY BEEF TRIMMER, VALERIE S 307.40 Insomnia 10/27/2009 SALLY BEEF TRIMMER, VALERIE S 536.8 Dyspepsia And Other Specified Disorders Of Function Of Stomach 10/27/2009 SALLY BEEF TRIMMER, VALERIE S 788.41 Urinary Frequency 10/27/2009 SALLY BEEF TRIMMER, VALERIE S 305.1 NICOTINE DEPENDENCE 10/27/2009 SALLY BEEF TRIMMER, VALERIE S 307.40 Insomnia 10/27/2009 SALLY BEEF TRIMMER, VALERIE S 536.8 Dyspepsia And Other Specified Disorders Of Function Of Stomach 10/27/2009 SALLY BEEF TRIMMER, VALERIE S 788.41 Urinary Frequency 10/27/2009 YATES [...] CAMARGO MD 788.41 Urinary Frequency 10/27/2009 SALLY BEEF TRIMMER, VALERIE S 305.1 NICOTINE DEPENDENCE 10/27/2009 SALLY PERSAUDN, VALERIE S 307.40 Insomnia 10/27/2009 SALLY BEEF TRIMMER, VALERIE S 536.8 Dyspepsia And Other Specified Disorders Of Function Of Stomach 10/27/2009 SALLY BEEF TRIMMER, VALERIE S 788.41 Urinary Frequency 10/27/2009 SALLY BEEF TRIMMER, VALERIE S 305.1 NICOTINE DEPENDENCE 10/27/2009 SALLY BEEF TRIMMER, VALERIE S 307.40 Insomnia 10/27/2009 SALLY BEEF TRIMMER, VALERIE S 536.8 Dyspepsia And Other Specified Disorders Of Function Of Stomach 10/27/2009 SALLY BEEF TRIMMER, VALERIE S 788.41 Urinary Frequency 10/27/2009 YATES DO, KARO K 305.1 NICOTINE DEPENDENCE 10/27/2009 YATES DO, KARO K 307.40 Insomnia 10/27/2009 YATES DO, KARO K 536.8 Dyspepsia And Other Specified Disorders Of Function Of Stomach 10/27/2009 YATES DO, KARO K 788.41 Urinary Frequency 10/27/2009 SALLY BEEF TRIMMER, VALERIE S 305.1 NICOTINE DEPENDENCE 10/27/2009 SALLY BEEF TRIMMER, VALERIE S 307.40 Insomnia 10/27/2009 SALLY BEEF TRIMMER, VALERIE S 536.8 Dyspepsia And Other Specified Disorders Of Function Of Stomach 10/27/2009 SALLY BEEF TRIMMER, VALERIE S 788.41 Urinary Frequency 10/27/2009 YATES DO, KARO K 305.1 NICOTINE DEPENDENCE 10/27/2009 YATES DO, KARO K 307.40 Insomnia 10/27/2009 YATES DO, KARO K 536.8 Dyspepsia And Other Specified Disorders Of Function Of Stomach 10/27/2009 YATES DO, KARO K 788.41 Urinary Frequency 10/27/2009 SALLY BEEF TRIMMER, VALERIE S 305.1 NICOTINE DEPENDENCE 10/27/2009 SALLY BEEF TRIMMER, VALERIE S 307.40 Insomnia 10/27/2009 SALLY BEEF TRIMMER, VALERIE S 536.8 Dyspepsia And Other Specified Disorders Of Function Of Stomach 10/27/2009 SALLY BEEF TRIMMER, VALERIE S 788.41 Urinary Frequency 10/27/2009 SALLY BEEF TRIMMER, VALERIE S 305.1 NICOTINE DEPENDENCE 10/27/2009 SALLY BEEF TRIMMER, VALERIE S 307.40 Insomnia 10/27/2009 SALLY BEEF TRIMMER, VALERIE S 536.8 Dyspepsia And Other Specified Disorders Of Function Of Stomach 10/27/2009 SALLY BEEF TRIMMER, VALERIE S 788.41 Urinary Frequency 10/27/2009 SALLY BEEF TRIMMER, VALERIE S 305.1 NICOTINE DEPENDENCE 10/27/2009 SALLY BEEF TRIMMER, VALERIE S 307.40 Insomnia 10/27/2009 SALLY BEEF TRIMMER, VALERIE S 536.8 Dyspepsia And Other Specified Disorders Of Function Of Stomach 10/27/2009 SALLY BEEF TRIMMER, VALERIE S 788.41 Urinary Frequency 10/27/2009 SALLY BEEF TRIMMER, VALERIE S 305.1 NICOTINE DEPENDENCE 10/27/2009 SALLY BEEF TRIMMER, VALERIE S 307.40 Insomnia 10/27/2009 SALLY BEEF TRIMMER, VALERIE S 536.8 Dyspepsia And Other Specified Disorders Of Function Of Stomach 10/27/2009 SALLY BEEF TRIMMER, VALERIE S 788.41 Urinary Frequency 10/27/2009 SALLY BEEF TRIMMER, VALERIE S 305.1 NICOTINE DEPENDENCE 10/27/2009 SALLY BEEF TRIMMER, VALERIE S 307.40 Insomnia 10/27/2009 SALLY BEEF TRIMMER, VALERIE S 536.8 Dyspepsia And Other Specified Disorders Of Function Of Stomach 10/27/2009 SALLY BEEF TRIMMER, VALERIE S 788.41 Urinary Frequency 10/27/2009 SALLY BEEF TRIMMER, VALERIE S 305.1 NICOTINE DEPENDENCE 10/27/2009 SALLY BEEF TRIMMER, VALERIE S 307.40 Insomnia 10/27/2009 SALLY BEEF TRIMMER, VALERIE S 536.8 Dyspepsia And Other Specified Disorders Of Function Of Stomach 10/27/2009 SALLY BEEF TRIMMER, VALERIE S 788.41 Urinary Frequency 10/27/2009 SALLY BEEF TRIMMER, VALERIE S 305.1 NICOTINE DEPENDENCE 10/27/2009 SALLY BEEF TRIMMER, VALERIE S 307.40 Insomnia 10/27/2009 SALLY BEEF TRIMMER, VALERIE S 536.8 Dyspepsia And Other Specified Disorders Of Function Of Stomach 10/27/2009 SALLY BEEF TRIMMER, VALERIE S 788.41 Urinary Frequency 10/27/2009 YATES DO, KARO K 305.1 NICOTINE DEPENDENCE 10/27/2009 YATES DO, KARO K 307.40 Insomnia 10/27/2009 YATES DO, KARO K 536.8 Dyspepsia And Other Specified Disorders Of Function Of Stomach 10/27/2009 YATES DO, KARO K 788.41 Urinary Frequency 10/27/2009 SALLY BEEF TRIMMER, VALERIE S 305.1 NICOTINE DEPENDENCE 10/27/2009 SALLY BEEF TRIMMER, VALERIE S 307.40 Insomnia 10/27/2009 SALLY BEEF TRIMMER, VALERIE S 536.8 Dyspepsia And Other Specified Disorders Of Function Of Stomach 10/27/2009 SALLY BEEF TRIMMER, VALERIE S 788.41 Urinary Frequency 10/27/2009 YATES DO, KARO K 305.1 NICOTINE DEPENDENCE 10/27/2009 YATES DO, KARO K 307.40 Insomnia 10/27/2009 YATES DO, KARO K 536.8 Dyspepsia And Other Specified Disorders Of Function Of Stomach 10/27/2009 YAETS DO, KARO K 788.41 Urinary Frequency 10/27/2009 SALLY BEEF TRIMMER, VALERIE S 305.1 NICOTINE DEPENDENCE 10/27/2009 SALLY BEEF TRIMMER, VALERIE S 307.40 Insomnia 10/27/2009 SALLY BEEF TRIMMER, VALERIE S 536.8 Dyspepsia And Other Specified Disorders Of Function Of Stomach 10/27/2009 SALLY BEEF TRIMMER, VALERIE S 788.41 Urinary Frequency 10/27/2009 SALLY BEEF TRIMMER, VALERIE S 305.1 NICOTINE DEPENDENCE 10/27/2009 SALLY BEEF TRIMMER, VALERIE S 307.40 Insomnia 10/27/2009 SALLY BEEF TRIMMER, VALERIE S 536.8 Dyspepsia And Other Specified Disorders Of Function Of Stomach 10/27/2009 SALLY BEEF TRIMMER, VALERIE S 788.41 Urinary Frequency 10/27/2009 SALLY BEEF TRIMMER, VALERIE S 305.1 NICOTINE DEPENDENCE 10/27/2009 SALLY BEEF TRIMMER, VALERIE S 307.40 Insomnia 10/27/2009 SALLY BEEF TRIMMER, VALERIE S 536.8 Dyspepsia And Other Specified Disorders Of Function Of Stomach 10/27/2009 SALLY BEEF TRIMMER, VALERIE S 788.41 Urinary Frequency 10/27/2009 YATES DO, KARO K 305.1 NICOTINE DEPENDENCE 10/27/2009 YATES DO, KARO K 307.40 Insomnia 10/27/2009 YATES DO, KARO K 536.8 Dyspepsia And Other Specified Disorders Of Function Of Stomach 10/27/2009 YATES DO, KARO K 788.41 Urinary Frequency 10/27/2009 SALLY BEEF TRIMMER, VALERIE S 305.1 NICOTINE DEPENDENCE 10/27/2009 SALLY BEEF TRIMMER, VALERIE S 307.40 Insomnia 10/27/2009 SALLY BEEF TRIMMER, VALERIE S 536.8 Dyspepsia And Other Specified Disorders Of Function Of Stomach 10/27/2009 SALLY BEEF TRIMMER, VALERIE S 788.41 Urinary Frequency 12/03/2009 YATES DO, KARO K 564.00 Constipation 12/03/2009 YATES DO, KARO K 564.00 Constipation 12/03/2009 ZORAIDA ESPAÑA APRN R 564.00 Constipation 12/03/2009 564.00 Constipation 12/03/2009 SALLY BEEF TRIMMER, VALERIE S 564.00 Constipation 12/03/2009 YATES DO, KARO K 564.00 Constipation 12/03/2009 SALLY BEEF TRIMMER, VALERIE S 564.00 Constipation 12/03/2009 SALLY BEEF TRIMMER, VALERIE S 564.00 Constipation 12/03/2009 YATES DO KARO K 564.00 Constipation 12/03/2009 564.00 Constipation 12/03/2009 564.00 Constipation 12/03/2009 564.00 Constipation 12/03/2009 MICHELLE CAMARGO MD 564.00 Constipation 12/03/2009 SALLY BEEF TRIMMER, VALERIE S 564.00 Constipation 12/03/2009 SALLY BEEF TRIMMER, VALERIE S 564.00 Constipation 12/03/2009 YATES DO, KARO K 564.00 Constipation 12/03/2009 SALLY BEEF TRIMMER, VALERIE S 564.00 Constipation 12/03/2009 YATES DO, KARO K 564.00 Constipation 12/03/2009 SALLY BEEF TRIMMER, VALERIE S 564.00 Constipation 12/03/2009 SALLY BEEF TRIMMER, VALERIE S 564.00 Constipation 12/03/2009 SALLY BEEF TRIMMER, VALERIE S 564.00 Constipation 12/03/2009 SALLY BEEF TRIMMER, VALERIE S 564.00 Constipation 12/03/2009 SALLY BEEF TRIMMER, VALERIE S 564.00 Constipation 12/03/2009 SALLY BEEF TRIMMER, VALERIE S 564.00 Constipation 12/03/2009 SALLY BEEF TRIMMER, VALERIE S 564.00 Constipation 12/03/2009 YATES DO KARO K 564.00 Constipation 12/03/2009 SALLY BEEF TRIMMER, VALERIE S 564.00 Constipation 12/03/2009 YATES DO, KARO K 564.00 Constipation 12/03/2009 SALLY BEEF TRIMMER, VALERIE S 564.00 Constipation 12/03/2009 SALLY BEEF TRIMMER, VALERIE S 564.00 Constipation 12/03/2009 SALLY BEEF TRIMMER, VALERIE S 564.00 Constipation 12/03/2009 YATES DO, KARO K 564.00 Constipation 12/03/2009 SALLY BEEF TRIMMER, VALERIE S 564.00 Constipation 02/22/2010 Ot 530.81 02/22/2010 Ot 789.09 02/22/2010 Ot V12.72 05/11/2010 YATES DO, KARO K 724.5 Back Pain, General 05/11/2010 YATES DO KARO K 724.5 Back Pain, General 05/11/2010 ZORAIDA ESPAÑA APRN 724.5 Back Pain, General 05/11/2010 724.5 Back Pain, General 05/11/2010 SALLY BEEF TRIMMER VALERIE S 724.5 Back Pain, General 05/11/2010 YATES DO KARO K 724.5 Back Pain, General 05/11/2010 SALLY BEEF TRIMMER, VALERIE S 724.5 Back Pain, General 05/11/2010 SALLY BEEF TRIMMER, VALERIE S 724.5 Back Pain, General 05/11/2010 YATES DO KARO K 724.5 Back Pain, General 05/11/2010 724.5 Back Pain, General 05/11/2010 724.5 Back Pain, General 05/11/2010 724.5 Back Pain, General 05/11/2010 MARY JO ABRAMS, MICHELLE 724.5 Back Pain, General 05/11/2010 SALLY BEEF TRIMMER, VALERIE S 724.5 Back Pain, General 05/11/2010 SALLY BEEF TRIMMER, VALERIE S 724.5 Back Pain, General 05/11/2010 YATES DO KARO K 724.5 Back Pain, General 05/11/2010 SALLY BEEF TRIMMER, VALERIE S 724.5 Back Pain, General 05/11/2010 YATES DO KARO K 724.5 Back Pain, General 05/11/2010 SALLY BEEF TRIMMER, VALERIE S 724.5 Back Pain, General 05/11/2010 SALLY BEEF TRIMMER, VALERIE S 724.5 Back Pain, General 05/11/2010 SALLY BEEF TRIMMER, VALERIE S 724.5 Back Pain, General 05/11/2010 SALLY BEEF TRIMMER, VALERIE S 724.5 Back Pain, General 05/11/2010 SALLY BEEF TRIMMER, VALERIE S 724.5 Back Pain, General 05/11/2010 SALLY BEEF TRIMMER, VALERIE S 724.5 Back Pain, General 05/11/2010 SALLY BEEF TRIMMER, VALERIE S 724.5 Back Pain, General 05/11/2010 YATES DO, KARO K 724.5 Back Pain, General 05/11/2010 SALLY BEEF TRIMMER, VALERIE S 724.5 Back Pain, General 05/11/2010 YATES DO, KARO K 724.5 Back Pain, General 05/11/2010 SALLY BEEF TRIMMER, VALERIE S 724.5 Back Pain, General 05/11/2010 SALLY BEEF TRIMMER, VALERIE S 724.5 Back Pain, General 05/11/2010 SALLY BEEF TRIMMER, VALERIE S 724.5 Back Pain, General 05/11/2010 YATES DO, KARO K 724.5 Back Pain, General 05/11/2010 SALLY BEEF TRIMMER, VALERIE S 724.5 Back Pain, General 05/21/2010 YATES DO KARO K 627.9 Menopausal And Postmenopausal Disorder Unspecified 05/21/2010 YATES DO KARO K 722.10 Displacement Of Lumbar Intervertebral Disc Without Myelopathy 05/21/2010 YATES DO KARO K V72.31 Filtration Operator Exam, Routine 05/21/2010 YATES DO KARO K 627.9 Menopausal And Postmenopausal Disorder Unspecified 05/21/2010 YATES DO KARO K 722.10 Displacement Of Lumbar Intervertebral Disc Without Myelopathy 05/21/2010 YATES DO KARO K V72.31 Filtration Operator Exam, Routine 05/21/2010 ZORAIDA ESPAÑA APRN R 627.9 Menopausal And Postmenopausal Disorder Unspecified 05/21/2010 ZORAIDA ESPAÑA APRN R 722.10 Displacement Of Lumbar Intervertebral Disc Without Myelopathy 05/21/2010 ZORAIDA ESPAÑA APRN V72.31 Filtration Operator Exam, Routine 05/21/2010 627.9 Menopausal And Postmenopausal Disorder Unspecified 05/21/2010 722.10 Displacement Of Lumbar Intervertebral Disc Without Myelopathy 05/21/2010 V72.31 Filtration Operator Exam, Routine 05/21/2010 SALLY BEEF TRIMMER VALERIE S 627.9 Menopausal And Postmenopausal Disorder Unspecified 05/21/2010 SALLY BEEF TRIMMER VALERIE S 722.10 Displacement Of Lumbar Intervertebral Disc Without Myelopathy 05/21/2010 SALLY BEEF TRIMMER VALERIE S V72.31 Filtration Operator Exam, Routine 05/21/2010 YATES DO KARO K 627.9 Menopausal And Postmenopausal Disorder Unspecified 05/21/2010 YATES DO KARO K 722.10 Displacement Of Lumbar Intervertebral Disc Without Myelopathy 05/21/2010 YATES DO KARO K V72.31 Filtration Operator Exam, Routine 05/21/2010 SALLY BEEF TRIMMER VALERIE S 627.9 Menopausal And Postmenopausal Disorder Unspecified 05/21/2010 SALLY BEEF TRIMMER VALERIE S 722.10 Displacement Of Lumbar Intervertebral Disc Without Myelopathy 05/21/2010 SALLY BEEF TRIMMER VALERIE S V72.31 Filtration Operator Exam, Routine 05/21/2010 SALLY BEEF TRIMMER VALERIE S 627.9 Menopausal And Postmenopausal Disorder Unspecified 05/21/2010 SALLY BEEF TRIMMER, VALERIE S 722.10 Displacement Of Lumbar Intervertebral Disc Without Myelopathy 05/21/2010 SALLY BEEF TRIMMER VALERIE S V72.31 Filtration Operator Exam, Routine 05/21/2010 MILAN DO KARO K 627.9 Menopausal And Postmenopausal Disorder Unspecified 05/21/2010 YATES DO KARO K 722.10 Displacement Of Lumbar Intervertebral Disc Without Myelopathy 05/21/2010 YATES DO KARO K V72.31 Filtration Operator Exam, Routine 05/21/2010 627.9 Menopausal And Postmenopausal Disorder Unspecified 05/21/2010 722.10 Displacement Of Lumbar Intervertebral Disc Without Myelopathy 05/21/2010 V72.31 Filtration Operator Exam, Routine 05/21/2010 627.9 Menopausal And Postmenopausal Disorder Unspecified 05/21/2010 722.10 Displacement Of Lumbar Intervertebral Disc Without Myelopathy 05/21/2010 V72.31 Filtration Operator Exam, Routine 05/21/2010 627.9 Menopausal And Postmenopausal Disorder Unspecified 05/21/2010 722.10 Displacement Of Lumbar Intervertebral Disc Without Myelopathy 05/21/2010 V72.31 Filtration Operator Exam, Routine 05/21/2010 MICHELLE CAMARGO MD 627.9 Menopausal And Postmenopausal Disorder Unspecified 05/21/2010 MICHELLE CAMARGO MD 722.10 Displacement Of Lumbar Intervertebral Disc Without Myelopathy 05/21/2010 MICHELLE CAMARGO MD V72.31 Filtration Operator Exam, Routine 05/21/2010 SALLY BEEF TRIMMER, VALERIE S 627.9 Menopausal And Postmenopausal Disorder Unspecified 05/21/2010 SALLY BEEF TRIMMER, VALERIE S 722.10 Displacement Of Lumbar Intervertebral Disc Without Myelopathy 05/21/2010 SALLY BEEF TRIMMER, VALERIE S V72.31 Filtration Operator Exam, Routine 05/21/2010 SALLY BEEF TRIMMER, VALERIE S 627.9 Menopausal And Postmenopausal Disorder Unspecified 05/21/2010 SALLY BEEF TRIMMER, VALERIE S 722.10 Displacement Of Lumbar Intervertebral Disc Without Myelopathy 05/21/2010 SALLY BEEF TRIMMER, VALERIE S V72.31 Filtration Operator Exam, Routine 05/21/2010 YATES DO, KARO K 627.9 Menopausal And Postmenopausal Disorder Unspecified 05/21/2010 YATES DO, KARO K 722.10 Displacement Of Lumbar Intervertebral Disc Without Myelopathy 05/21/2010 YATES DO, KARO K V72.31 Filtration Operator Exam, Routine 05/21/2010 SALLY BEEF TRIMMER, VALERIE S 627.9 Menopausal And Postmenopausal Disorder Unspecified 05/21/2010 SALLY BEEF TRIMMER, VALERIE S 722.10 Displacement Of Lumbar Intervertebral Disc Without Myelopathy 05/21/2010 SALLY BEEF TRIMMER, VALERIE S V72.31 Filtration Operator Exam, Routine 05/21/2010 YATES DO, KARO K 627.9 Menopausal And Postmenopausal Disorder Unspecified 05/21/2010 YATES DO, KARO K 722.10 Displacement Of Lumbar Intervertebral Disc Without Myelopathy 05/21/2010 YATES DO, KARO K V72.31 Filtration Operator Exam, Routine 05/21/2010 SALLY BEEF TRIMMER, VALERIE S 627.9 Menopausal And Postmenopausal Disorder Unspecified 05/21/2010 SALLY BEEF TRIMMER, VALERIE S 722.10 Displacement Of Lumbar Intervertebral Disc Without Myelopathy 05/21/2010 SALLY BEEF TRIMMER, VALERIE S V72.31 Filtration Operator Exam, Routine 05/21/2010 SALLY BEEF TRIMMER, VALERIE S 627.9 Menopausal And Postmenopausal Disorder Unspecified 05/21/2010 SALLY BEEF TRIMMER, VALERIE S 722.10 Displacement Of Lumbar Intervertebral Disc Without Myelopathy 05/21/2010 SALLY BEEF TRIMMER, VALERIE S V72.31 Filtration Operator Exam, Routine 05/21/2010 SALLY BEEF TRIMMER, VALERIE S 627.9 Menopausal And Postmenopausal Disorder Unspecified 05/21/2010 SALLY BEEF TRIMMER, VALERIE S 722.10 Displacement Of Lumbar Intervertebral Disc Without Myelopathy 05/21/2010 SALLY BEEF TRIMMER, VALERIE S V72.31 Filtration Operator Exam, Routine 05/21/2010 SALLY BEEF TRIMMER, VALERIE S 627.9 Menopausal And Postmenopausal Disorder Unspecified 05/21/2010 SALLY BEEF TRIMMER, VALERIE S 722.10 Displacement Of Lumbar Intervertebral Disc Without Myelopathy 05/21/2010 SALLY BEEF TRIMMER, VALERIE S V72.31 Filtration Operator Exam, Routine 05/21/2010 SALLY BEEF TRIMMER, VALERIE S 627.9 Menopausal And Postmenopausal Disorder Unspecified 05/21/2010 SALLY BEEF TRIMMER, VALERIE S 722.10 Displacement Of Lumbar Intervertebral Disc Without Myelopathy 05/21/2010 SALLY BEEF TRIMMER, VALERIE S V72.31 Filtration Operator Exam, Routine 05/21/2010 SALLY BEEF TRIMMER, VALERIE S 627.9 Menopausal And Postmenopausal Disorder Unspecified 05/21/2010 SALLY BEEF TRIMMER, VALERIE S 722.10 Displacement Of Lumbar Intervertebral Disc Without Myelopathy 05/21/2010 SALLY BEEF TRIMMER, VALERIE S V72.31 Filtration Operator Exam, Routine 05/21/2010 SALLY BEEF TRIMMER, VALERIE S 627.9 Menopausal And Postmenopausal Disorder Unspecified 05/21/2010 SALLY BEEF TRIMMER, VALERIE S 722.10 Displacement Of Lumbar Intervertebral Disc Without Myelopathy 05/21/2010 SALLY BEEF TRIMMER, VALERIE S V72.31 Filtration Operator Exam, Routine 05/21/2010 KARO YATES DO K 627.9 Menopausal And Postmenopausal Disorder Unspecified 05/21/2010 YATES DO, KARO K 722.10 Displacement Of Lumbar Intervertebral Disc Without Myelopathy 05/21/2010 YATES DO, KARO K V72.31 Filtration Operator Exam, Routine 05/21/2010 SALLY BEEF TRIMMER, VALERIE S 627.9 Menopausal And Postmenopausal Disorder Unspecified 05/21/2010 SALLY BEEF TRIMMER, VALERIE S 722.10 Displacement Of Lumbar Intervertebral Disc Without Myelopathy 05/21/2010 SALLY BEEF TRIMMER, VALERIE S V72.31 Filtration Operator Exam, Routine 05/21/2010 YATES DO, KARO K 627.9 Menopausal And Postmenopausal Disorder Unspecified 05/21/2010 YATES DO, KARO K 722.10 Displacement Of Lumbar Intervertebral Disc Without Myelopathy 05/21/2010 YATES DO, KARO K V72.31 Filtration Operator Exam, Routine 05/21/2010 SALLY BEEF TRIMMER, VALERIE S 627.9 Menopausal And Postmenopausal Disorder Unspecified 05/21/2010 SALLY BEEF TRIMMER, VALERIE S 722.10 Displacement Of Lumbar Intervertebral Disc Without Myelopathy 05/21/2010 SALLY BEEF TRIMMER, VALERIE S V72.31 Filtration Operator Exam, Routine 05/21/2010 SALLY BEEF TRIMMER, VALERIE S 627.9 Menopausal And Postmenopausal Disorder Unspecified 05/21/2010 SALLY BEEF TRIMMER, VALERIE S 722.10 Displacement Of Lumbar Intervertebral Disc Without Myelopathy 05/21/2010 SALLY BEEF TRIMMER, VALERIE S V72.31 Filtration Operator Exam, Routine 05/21/2010 SALLY BEEF TRIMMER, VALERIE S 627.9 Menopausal And Postmenopausal Disorder Unspecified 05/21/2010 SALLY BEEF TRIMMER, VALERIE S 722.10 Displacement Of Lumbar Intervertebral Disc Without Myelopathy 05/21/2010 SALLY BEEF TRIMMER, VALERIE S V72.31 Filtration Operator Exam, Routine 05/21/2010 YATES DO, KARO K 627.9 Menopausal And Postmenopausal Disorder Unspecified 05/21/2010 YATES DO, KARO K 722.10 Displacement Of Lumbar Intervertebral Disc Without Myelopathy 05/21/2010 YATES DO, KARO K V72.31 Filtration Operator Exam, Routine 05/21/2010 SALLY BEEF TRIMMER, VALERIE S 627.9 Menopausal And Postmenopausal Disorder Unspecified 05/21/2010 VALERIE ZAVALA APRN S 722.10 Displacement Of Lumbar Intervertebral Disc Without Myelopathy 05/21/2010 ADRIAN ZAVALA APRNA S V72.31 Filtration Operator Exam, Routine 06/23/2010 MILAN RAMIREZ KARO [...] S V68.1 Issue Of Repeat Prescriptions 06/23/2010 KRAO YATES DO V68.1 Issue Of Repeat Prescriptions [...] Other Slipping Tripping Or Stumbling 10/13/2010 SALLY BEEF TRIMMER, VALERIE S 719.46 Knee Pain 10/13/2010 SALLY BEEF TRIMMERSERINAVALERIE S E885.9 Accidental Fall From Other Slipping Tripping Or Stumbling 10/13/2010 YATES DOHALEYA K 719.46 Knee Pain 10/13/2010 YATES DO KARO K E885.9 Accidental Fall From Other Slipping Tripping Or Stumbling 10/13/2010 SALLY BEEF TRIMMER VALERIE S 719.46 Knee Pain 10/13/2010 SALLY BEEF TRIMMERSERINAVALERIE S E885.9 Accidental Fall From Other Slipping Tripping Or Stumbling 10/13/2010 SALLY BEEF TRIMMER, VALERIE S 719.46 Knee Pain 10/13/2010 SALLY BEEF TRIMMER, VALERIE S E885.9 Accidental Fall From Other [...] MICHELLE CAMARGO MD 719.46 Knee Pain 10/13/2010 MICHELEL CAMARGO MD E885.9 Accidental Fall From Other Slipping Tripping Or Stumbling 10/13/2010 SERINA ZAVALA APRNNDA S 719.46 Knee Pain 10/13/2010 SERINA ZAVALA APRNNDA S E885.9 Accidental Fall From Other Slipping Tripping Or Stumbling 10/13/2010 SALLY BEEF TRIMMER, VALERIE S 719.46 Knee Pain 10/13/2010 SERINA ZAVALA APRNNDA S E885.9 Accidental Fall From Other Slipping Tripping Or Stumbling 10/13/2010 YATES DO, KARO K 719.46 Knee Pain 10/13/2010 YATES DO, KARO K E885.9 Accidental Fall From Other Slipping Tripping Or Stumbling 10/13/2010 SALLY BEEF TRIMMER, VALERIE S 719.46 Knee Pain 10/13/2010 SALLY BEEF TRIMMER, VALERIE S E885.9 Accidental Fall From Other Slipping Tripping Or Stumbling 10/13/2010 YATES DO, KARO K 719.46 Knee Pain 10/13/2010 YATES DO, KARO K E885.9 Accidental Fall From Other Slipping Tripping Or Stumbling 10/13/2010 SALLY BEEF TRIMMER, VALERIE S 719.46 Knee Pain 10/13/2010 SALLY BEEF TRIMMER, VALERIE S E885.9 Accidental Fall From Other Slipping Tripping Or Stumbling 10/13/2010 SALLY BEEF TRIMMER, VALERIE S 719.46 Knee Pain 10/13/2010 SALLY BEEF TRIMMER, VALERIE S E885.9 Accidental Fall From Other Slipping Tripping Or Stumbling 10/13/2010 SALLY BEEF TRIMMER, VALERIE S 719.46 Knee Pain 10/13/2010 SALLY BEEF TRIMMER, VALERIE S E885.9 Accidental Fall From Other Slipping Tripping Or Stumbling 10/13/2010 SALLY BEEF TRIMMER, VALERIE S 719.46 Knee Pain 10/13/2010 SALLY BEEF TRIMMER, VALERIE S E885.9 Accidental Fall From Other Slipping Tripping Or Stumbling 10/13/2010 SALLY BEEF TRIMMER, VALERIE S 719.46 Knee Pain 10/13/2010 SALLY BEEF TRIMMER, VALERIE S E885.9 Accidental Fall From Other Slipping Tripping Or Stumbling 10/13/2010 SALLY BEEF TRIMMER, VALERIE S 719.46 Knee Pain 10/13/2010 SALLY BEEF TRIMMER, VALERIE S E885.9 Accidental Fall From Other Slipping Tripping Or Stumbling 10/13/2010 SALLY BEEF TRIMMER, VALERIE S 719.46 Knee Pain 10/13/2010 SALLY BEEF TRIMMER, VALERIE S E885.9 Accidental Fall From Other Slipping Tripping Or Stumbling 10/13/2010 YATES DO, KARO K 719.46 Knee Pain 10/13/2010 YATES DO, KARO K E885.9 Accidental Fall From Other Slipping Tripping Or Stumbling 10/13/2010 SALLY BEEF TRIMMER VALERIE S 719.46 Knee Pain 10/13/2010 SALLY BEEF TRIMMER VALERIE S E885.9 Accidental Fall From Other Slipping Tripping Or Stumbling 10/13/2010 YATES DO KARO K 719.46 Knee Pain 10/13/2010 YATES DO KARO K E885.9 Accidental Fall From Other Slipping Tripping Or Stumbling 10/13/2010 SALLY BEEF TRIMMER VALERIE S 719.46 Knee Pain 10/13/2010 SALLY BEEF TRIMMER VALERIE S E885.9 Accidental Fall From Other Slipping Tripping Or Stumbling 10/13/2010 SALLY BEEF TRIMMER VALERIE S 719.46 Knee Pain 10/13/2010 SALLY BEEF TRIMMER VALERIE S E885.9 Accidental Fall From Other Slipping Tripping Or Stumbling 10/13/2010 SALLY BEEF TRIMMER VALERIE S 719.46 Knee Pain 10/13/2010 SALLY BEEF TRIMMER VALERIE S E885.9 Accidental Fall From Other Slipping Tripping Or Stumbling 10/13/2010 YATES DO KARO K 719.46 Knee Pain 10/13/2010 YATES DO KARO K E885.9 Accidental Fall From Other Slipping Tripping Or Stumbling 10/13/2010 SALLY BEEF TRIMMER VALERIE S 719.46 Knee Pain 10/13/2010 SALLY BEEF TRIMMER VALERIE S E885.9 Accidental Fall From Other Slipping Tripping Or Stumbling 11/07/2010 Ot 722.52 LUMB/ LUMBOSAC DISC DEGEN 11/07/2010 Ot 724.2 LUMBAGO 11/11/2010 YATES DO KARO K 401.1 HYPERTENSION, BENIGN ESSENTIAL 11/11/2010 YATES DO KARO K 401.1 HYPERTENSION, BENIGN ESSENTIAL 11/11/2010 ZORAIDA ESPAÑA APRN 401.1 HYPERTENSION, BENIGN ESSENTIAL 11/11/2010 401.1 HYPERTENSION, BENIGN ESSENTIAL 11/11/2010 SALLY BEEF TRIMMER, VAELRIE S 401.1 HYPERTENSION, BENIGN ESSENTIAL 11/11/2010 YATES DO, KARO K 401.1 HYPERTENSION, BENIGN ESSENTIAL 11/11/2010 SALLY BEEF TRIMMER, VALERIE S 401.1 HYPERTENSION, BENIGN ESSENTIAL 11/11/2010 SALLY BEEF TRIMMER, VALERIE S 401.1 HYPERTENSION, BENIGN ESSENTIAL 11/11/2010 YATES DO, KARO K 401.1 HYPERTENSION, BENIGN ESSENTIAL 11/11/2010 401.1 HYPERTENSION, BENIGN ESSENTIAL 11/11/2010 401.1 HYPERTENSION, BENIGN ESSENTIAL 11/11/2010 401.1 HYPERTENSION, BENIGN ESSENTIAL 11/11/2010 MARY JO ABRAMS, MICHELLE 401.1 HYPERTENSION, BENIGN ESSENTIAL 11/11/2010 SALLY BEEF TRIMMER, VALERIE S 401.1 HYPERTENSION, BENIGN ESSENTIAL 11/11/2010 SALLY BEEF TRIMMER, VALERIE S 401.1 HYPERTENSION, BENIGN ESSENTIAL 11/11/2010 YATES DO, KARO K 401.1 HYPERTENSION, BENIGN ESSENTIAL 11/11/2010 SALLY BEEF TRIMMER, VALERIE S 401.1 HYPERTENSION, BENIGN ESSENTIAL 11/11/2010 YATES DO, KARO K 401.1 HYPERTENSION, BENIGN ESSENTIAL 11/11/2010 SALLY BEEF TRIMMER, VALERIE S 401.1 HYPERTENSION, BENIGN ESSENTIAL 11/11/2010 SALLY BEEF TRIMMER, VALERIE S 401.1 HYPERTENSION, BENIGN ESSENTIAL 11/11/2010 SALLY BEEF TRIMMER, VALERIE S 401.1 HYPERTENSION, BENIGN ESSENTIAL 11/11/2010 SALLY BEEF TRIMMER, VALERIE S 401.1 HYPERTENSION, BENIGN ESSENTIAL 11/11/2010 SALLY BEEF TRIMMER, VALERIE S 401.1 HYPERTENSION, BENIGN ESSENTIAL 11/11/2010 SALLY BEEF TRIMMER, VALERIE S 401.1 HYPERTENSION, BENIGN ESSENTIAL 11/11/2010 SALLY BEEF TRIMMER, VALERIE S 401.1 HYPERTENSION, BENIGN ESSENTIAL 11/11/2010 YATES DO, KARO K 401.1 HYPERTENSION, BENIGN ESSENTIAL 11/11/2010 SALLY BEEF TRIMMER, VALERIE S 401.1 HYPERTENSION, BENIGN ESSENTIAL 11/11/2010 YATES DO, KARO K 401.1 HYPERTENSION, BENIGN ESSENTIAL 11/11/2010 SALLY BEEF TRIMMER, VALERIE S 401.1 HYPERTENSION, BENIGN ESSENTIAL 11/11/2010 SALLY BEEF TRIMMER, VALERIE S 401.1 HYPERTENSION, BENIGN ESSENTIAL 11/11/2010 [...] (3 Yrs And Above, Im) 03/09/2011 SALLY BEEF TRIMMER, VALERIE S V04.81 Flu Dx (3 Yrs And Above, Im) 03/09/2011 YATES DO, KARO K V04.81 Flu Dx (3 Yrs And Above, Im) 03/09/2011 SALLY BEEF TRIMMER, VALERIE S V04.81 Flu Dx (3 Yrs And Above, Im) 03/09/2011 YATES DO, KARO K V04.81 Flu Dx (3 Yrs And Above, Im) 03/09/2011 SALLY BEEF TRIMMER, VAELRIE S V04.81 Flu Dx (3 Yrs And Above, Im) 03/09/2011 SALLY BEEF TRIMMER, VALERIE S V04.81 Flu Dx (3 Yrs And Above, Im) 03/09/2011 SALLY BEEF TRIMMER, VALERIE S V04.81 Flu Dx (3 Yrs And Above, Im) 03/09/2011 SALLY BEEF TRIMMER, VALERIE S V04.81 Flu Dx (3 Yrs And Above, Im) 03/09/2011 SALLY BEEF TRIMMER, VALERIE S V04.81 Flu Dx (3 Yrs And Above, Im) 03/09/2011 SALLY BEEF TRIMMER, VALERIE S V04.81 Flu Dx (3 Yrs And Above, Im) 03/09/2011 SALLY BEEF TRIMMER, VALERIE S V04.81 Flu Dx (3 Yrs And Above, Im) 03/09/2011 YATES DO, KARO K V04.81 Flu Dx (3 Yrs And Above, Im) 03/09/2011 SALLY BEEF TRIMMER, VALERIE S V04.81 Flu Dx (3 Yrs And Above, Im) 03/09/2011 YATES DO, KARO K V04.81 Flu Dx (3 Yrs And Above, Im) 03/09/2011 SALLY BEEF TRIMMER, VALERIE S V04.81 Flu Dx (3 Yrs And Above, Im) 03/09/2011 SALLY BEEF TRIMMER, VALERIE S V04.81 Flu Dx (3 Yrs And Above, Im) 03/09/2011 SALLY BEEF TRIMMER, VALERIE S V04.81 Flu Dx (3 Yrs And Above, Im) 03/09/2011 YATES DO, KARO K V04.81 Flu Dx (3 Yrs And Above, Im) 03/09/2011 SALLY BEEF TRIMMER, VALERIE S V04.81 Flu Dx (3 Yrs And Above, Im) 03/14/2011 YATES DO, KARO K 625.9 Pelvic Pain 03/14/2011 YATES DO, KARO K 791.0 Proteinuria 03/14/2011 YATES DO, KARO K 625.9 Pelvic Pain 03/14/2011 YATES DO, KARO K 791.0 Proteinuria 03/14/2011 ESPAÑA BEEF TRIMMER, ZORAIDA R 625.9 Pelvic Pain 03/14/2011 ESPAÑA BEEF TRIMMER, ZORAIDA R 791.0 Proteinuria 03/14/2011 625.9 Pelvic Pain 03/14/2011 791.0 Proteinuria 03/14/2011 SALLY BEEF TRIMMER, VALERIE S 625.9 Pelvic Pain 03/14/2011 SALLY BEEF TRIMMER, VALERIE S 791.0 Proteinuria 03/14/2011 YATES DO, KARO K 625.9 Pelvic Pain 03/14/2011 YATES DO, KARO K 791.0 Proteinuria 03/14/2011 SALLY BEEF TRIMMER, VALERIE S 625.9 Pelvic Pain 03/14/2011 SALLY BEEF TRIMMER, VALERIE S 791.0 Proteinuria 03/14/2011 SALLY BEEF TRIMMER, VALERIE S 625.9 Pelvic Pain 03/14/2011 SALLY BEEF TRIMMER, VALERIE S 791.0 Proteinuria 03/14/2011 YATES DO, KARO K 625.9 Pelvic Pain 03/14/2011 YATES DO, KARO K 791.0 Proteinuria 03/14/2011 625.9 Pelvic Pain 03/14/2011 791.0 Proteinuria 03/14/2011 625.9 Pelvic Pain 03/14/2011 791.0 Proteinuria 03/14/2011 625.9 Pelvic Pain 03/14/2011 791.0 Proteinuria 03/14/2011 MICHELLE CAMARGO MD 625.9 Pelvic Pain 03/14/2011 MICHELLE CAMARGO MD 791.0 Proteinuria 03/14/2011 SALLY BEEF TRIMMER, VALERIE S 625.9 Pelvic Pain 03/14/2011 SALLY BEEF TRIMMER, VALERIE S 791.0 Proteinuria 03/14/2011 SALLY BEEF TRIMMER, VALERIE S 625.9 Pelvic Pain 03/14/2011 SALLY BEEF TRIMMER, VALERIE S 791.0 Proteinuria 03/14/2011 YATES DO, KARO K 625.9 Pelvic Pain 03/14/2011 YATES DO, KARO K 791.0 Proteinuria 03/14/2011 SALLY BEEF TRIMMER, VALERIE S 625.9 Pelvic Pain 03/14/2011 SALLY BEEF TRIMMER, VALERIE S 791.0 Proteinuria 03/14/2011 YATES DO, KARO K 625.9 Pelvic Pain 03/14/2011 YATES DO, KARO K 791.0 Proteinuria 03/14/2011 SALLY BEEF TRIMMER, VALERIE S 625.9 Pelvic Pain 03/14/2011 SALLY BEEF TRIMMER, VALERIE S 791.0 Proteinuria 03/14/2011 SALLY BEEF TRIMMER, VALERIE S 625.9 Pelvic Pain 03/14/2011 SALLY BEEF TRIMMER, VALERIE S 791.0 Proteinuria 03/14/2011 SALLY BEEF TRIMMER, VALERIE S 625.9 Pelvic Pain 03/14/2011 SALLY BEEF TRIMMER, VALERIE S 791.0 Proteinuria 03/14/2011 SALLY BEEF TRIMMER, VALERIE S 625.9 Pelvic Pain 03/14/2011 SALLY BEEF TRIMMER, VALERIE S 791.0 Proteinuria 03/14/2011 SALLY BEEF TRIMMER, VALERIE S 625.9 Pelvic Pain 03/14/2011 SALLY BEEF TRIMMER, VALERIE S 791.0 Proteinuria 03/14/2011 SALLY BEEF TRIMMER, VALERIE S 625.9 Pelvic Pain 03/14/2011 SALLY BEEF TRIMMER, VALERIE S 791.0 Proteinuria 03/14/2011 SALLY BEEF TRIMMER, VALERIE S 625.9 Pelvic Pain 03/14/2011 SALLY BEEF TRIMMER, VALERIE S 791.0 Proteinuria 03/14/2011 YATES DO, KARO K 625.9 Pelvic Pain 03/14/2011 YATES DO, KARO K 791.0 Proteinuria 03/14/2011 SALLY BEEF TRIMMER, VALERIE S 625.9 Pelvic Pain 03/14/2011 SALLY BEEF TRIMMER, VALERIE S 791.0 Proteinuria 03/14/2011 YATES DO, KARO K 625.9 Pelvic Pain 03/14/2011 YATES DO, KARO K 791.0 Proteinuria 03/14/2011 SALLY BEEF TRIMMER, VALERIE S 625.9 Pelvic Pain 03/14/2011 SALLY BEEF TRIMMER, VALERIE S 791.0 Proteinuria 03/14/2011 SALLY BEEF TRIMMER, VALERIE S 625.9 Pelvic Pain 03/14/2011 SALLY BEEF TRIMMER, VALERIE S 791.0 Proteinuria 03/14/2011 SALLY BEEF TRIMMER, VALERIE S 625.9 Pelvic Pain 03/14/2011 SALLY BEEF TRIMMER, VALERIE S 791.0 Proteinuria 03/14/2011 YATES DO, KARO K 625.9 Pelvic Pain 03/14/2011 YATES DO, KARO K 791.0 Proteinuria 03/14/2011 SALLY BEEF TRIMMER, VALERIE S 625.9 Pelvic Pain 03/14/2011 SALLY BEEF TRIMMER, VALERIE S 791.0 Proteinuria 04/26/2011 Ot 614.6 [...] S 789.07 ABDOMINAL PAIN GENERALIZED 05/20/2011 SALLY BEEF TRIMMER, VALERIE S 300.02 AN GEN ANXIETY 05/20/2011 [...] S 300.02 AN GEN ANXIETY 05/20/2011 SALLY BEEF TRIMMER, VALERIE S 789.07 ABDOMINAL PAIN GENERALIZED 05/20/2011 SALLY BEEF TRIMMER, VALERIE S 300.02 AN GEN ANXIETY 05/20/2011 SALLY BEEF TRIMMER, VALERIE S 789.07 ABDOMINAL PAIN GENERALIZED 05/20/2011 SALLY BEEF TRIMMER, VALERIE S 300.02 AN GEN ANXIETY 05/20/2011 SALLY BEEF TRIMMER, VALERIE S 789.07 ABDOMINAL PAIN GENERALIZED 05/20/2011 SALLY PERSAUDN VALERIE S 300.02 AN GEN ANXIETY 05/20/2011 SALLY BEEF TRIMMER, VALERIE S 789.07 ABDOMINAL PAIN GENERALIZED 05/20/2011 YATES DO, KARO K 300.02 AN GEN ANXIETY 05/20/2011 YATES DO, KARO K 789.07 ABDOMINAL PAIN GENERALIZED 05/20/2011 SALLY PERSAUDN VALERIE S 300.02 AN GEN ANXIETY 05/20/2011 SALLY BEEF TRIMMER VALERIE S 789.07 ABDOMINAL PAIN GENERALIZED 05/20/2011 YATES DO, KARO K 300.02 AN GEN ANXIETY 05/20/2011 YATES DO, KARO K 789.07 ABDOMINAL PAIN GENERALIZED 05/20/2011 SALLY PERSAUDN, VALERIE S 300.02 AN GEN ANXIETY 05/20/2011 SALLYMARTY PERSAUDN, VALERIE S 789.07 ABDOMINAL PAIN GENERALIZED 05/20/2011 SALLYMARTY PERSAUDN VALERIE S 300.02 AN GEN ANXIETY 05/20/2011 SALLY BEEF TRIMMER VALERIE S 789.07 ABDOMINAL PAIN GENERALIZED 05/20/2011 SALLY BEEF TRIMMER VALERIE S 300.02 AN GEN ANXIETY 05/20/2011 SALLY PERSAUDN VALERIE S 789.07 ABDOMINAL PAIN GENERALIZED 05/20/2011 YATES DO, KARO K 300.02 AN GEN ANXIETY 05/20/2011 YATES DO, KARO K 789.07 ABDOMINAL PAIN GENERALIZED 05/20/2011 SALLY PERSAUDN VALERIE S 300.02 AN GEN ANXIETY 05/20/2011 SALLY BEEF TRIMMER, VALERIE S 789.07 ABDOMINAL PAIN GENERALIZED 06/09/2011 YATES DO, KARO K 796.2 Elevated Blood Pressure Reading Without Diagnosis Of Hypertension 06/09/2011 YATES DO, KARO K 796.2 Elevated Blood Pressure Reading Without Diagnosis Of Hypertension 06/09/2011 TACO RIVERA ZORAIDA R 796.2 Elevated Blood Pressure Reading Without Diagnosis Of Hypertension 06/09/2011 796.2 Elevated Blood Pressure Reading Without Diagnosis Of Hypertension 06/09/2011 SALLY BEEF TRIMMER, VALERIE S 796.2 Elevated Blood Pressure Reading Without Diagnosis Of Hypertension 06/09/2011 YATES DO KARO K 796.2 Elevated Blood Pressure Reading Without Diagnosis Of Hypertension 06/09/2011 SALLY BEEF TRIMMER, VALERIE S 796.2 Elevated Blood Pressure Reading Without Diagnosis Of Hypertension 06/09/2011 SALLY BEEF TRIMMER, VALERIE S 796.2 Elevated Blood Pressure Reading [...] Reading Without Diagnosis Of Hypertension 06/09/2011 SALLY BEEF TRIMMER, VALERIE S 796.2 Elevated Blood Pressure Reading Without Diagnosis Of Hypertension 06/09/2011 SALLY BEEF TRIMMER, VALERIE S 796.2 Elevated Blood Pressure Reading Without Diagnosis Of Hypertension 06/09/2011 YATES DO KARO K 796.2 Elevated Blood Pressure Reading Without Diagnosis Of Hypertension 06/09/2011 SALLY BEEF TRIMMER, VALERIE S 796.2 Elevated Blood Pressure Reading Without Diagnosis Of Hypertension 06/09/2011 MILAN RAMIREZ KARO K 796.2 Elevated Blood Pressure Reading Without Diagnosis Of Hypertension 06/09/2011 SALLY BEEF TRIMMER, VALERIE S 796.2 Elevated Blood Pressure Reading Without Diagnosis Of Hypertension 06/09/2011 SALLY BEEF TRIMMER, VALERIE S 796.2 Elevated Blood Pressure Reading Without Diagnosis Of Hypertension 06/09/2011 SALLY BEEF TRIMMER, VALERIE S 796.2 Elevated Blood Pressure Reading Without Diagnosis Of Hypertension 06/09/2011 SALLY BEEF TRIMMER, VALERIE S 796.2 Elevated Blood Pressure Reading Without Diagnosis Of Hypertension 06/09/2011 SALLY BEEF TRIMMER, VALERIE S 796.2 Elevated Blood Pressure Reading [...] 07/12/2011 338.4 CHRONIC PAIN SYNDROME 07/12/2011 SALLY BEEF TRIMMER, VALERIE S 338.4 CHRONIC PAIN SYNDROME 07/12/2011 YATES DO, KARO K 338.4 CHRONIC PAIN SYNDROME 07/12/2011 SALLY BEEF TRIMMER, VALERIE S 338.4 CHRONIC PAIN SYNDROME 07/12/2011 SALLY BEEF TRIMMER, VALERIE S 338.4 CHRONIC PAIN SYNDROME 07/12/2011 YATES DO, KARO K 338.4 CHRONIC PAIN SYNDROME 07/12/2011 338.4 CHRONIC PAIN SYNDROME 07/12/2011 338.4 CHRONIC PAIN SYNDROME 07/12/2011 338.4 CHRONIC PAIN SYNDROME 07/12/2011 MARY JO ABRAMS, MICHELLE 338.4 CHRONIC PAIN SYNDROME 07/12/2011 SALLY BEEF TRIMMER, VALERIE S 338.4 CHRONIC PAIN SYNDROME 07/12/2011 SALLY BEEF TRIMMER, VALERIE S 338.4 CHRONIC PAIN SYNDROME 07/12/2011 YATES DO, KARO K 338.4 CHRONIC PAIN SYNDROME 07/12/2011 SALLY BEEF TRIMMER, VALERIE S 338.4 CHRONIC PAIN SYNDROME 07/12/2011 YATES DO, KARO K 338.4 CHRONIC PAIN SYNDROME 07/12/2011 SALLY BEEF TRIMMER, VALERIE S 338.4 CHRONIC PAIN SYNDROME 07/12/2011 SALLY BEEF TRIMMER, VALERIE S 338.4 CHRONIC PAIN SYNDROME 07/12/2011 SALLY BEEF TRIMMER, VALERIE S 338.4 CHRONIC PAIN SYNDROME 07/12/2011 SALLY BEEF TRIMMER, VALERIE S 338.4 CHRONIC PAIN SYNDROME 07/12/2011 SALLY BEEF TRIMMER, VALERIE S 338.4 CHRONIC PAIN SYNDROME 07/12/2011 SALLY BEEF TRIMMER, VALERIE S 338.4 CHRONIC PAIN SYNDROME 07/12/2011 SALLY BEEF TRIMMER, VALERIE S 338.4 CHRONIC PAIN SYNDROME 07/12/2011 YATES DO, KARO K 338.4 CHRONIC PAIN SYNDROME 07/12/2011 SALLY BEEF TRIMMER, VALERIE S 338.4 CHRONIC PAIN SYNDROME 07/12/2011 YATES DO, KARO K 338.4 CHRONIC PAIN SYNDROME 07/12/2011 SALLY BEEF TRIMMER, VALERIE S 338.4 CHRONIC PAIN SYNDROME 07/12/2011 SALLY BEEF TRIMMER, VALERIE S 338.4 CHRONIC PAIN SYNDROME 07/12/2011 SALLY BEEF TRIMMER, VALERIE S 338.4 CHRONIC PAIN SYNDROME 07/12/2011 [...] RAMIREZ KARO K 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 09/23/2011 SALLY BEEF TRIMMER, VALERIE S 735.0 HALLUX VALGUS (ACQUIRED) 09/23/2011 SALLY BEEF TRIMMER, VALERIE S 735.4 HAMMER TOE (ACQUIRED) 09/23/2011 SALLY BEEF TRIMMER, VALERIE S 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 09/23/2011 SALLY BEEF TRIMMER, VALERIE S 735.0 HALLUX VALGUS (ACQUIRED) 09/23/2011 [...] MICHELLE CAMARGO MD 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 09/23/2011 SALLY RIVERA, VALERIE S 735.0 HALLUX VALGUS (ACQUIRED) 09/23/2011 SALLY BEEF TRIMMER, VALERIE S 735.4 HAMMER TOE (ACQUIRED) 09/23/2011 SALLY BEEF TRIMMER, VALERIE S 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 09/23/2011 SALLY BEEF TRIMMER, VALERIE S 735.0 HALLUX VALGUS (ACQUIRED) 09/23/2011 SALLY BEEF TRIMMER, VALERIE S 735.4 HAMMER TOE (ACQUIRED) 09/23/2011 SALLY BEEF TRIMMER, VALERIE S 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 09/23/2011 YATES DO, KARO K 735.0 HALLUX VALGUS (ACQUIRED) 09/23/2011 YATES DO, KARO K 735.4 HAMMER TOE (ACQUIRED) 09/23/2011 YATES DO, KARO K 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 09/23/2011 SALLY BEEF TRIMMER, VALERIE S 735.0 HALLUX VALGUS (ACQUIRED) 09/23/2011 SALLY BEEF TRIMMER, VALERIE S 735.4 HAMMER TOE (ACQUIRED) 09/23/2011 SALLY BEEF TRIMMER, VALERIE S 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 09/23/2011 YATES DO, KARO K 735.0 HALLUX VALGUS (ACQUIRED) 09/23/2011 YATES DO, KARO K 735.4 HAMMER TOE (ACQUIRED) 09/23/2011 YATES DO, KARO K 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 09/23/2011 SALLY BEEF TRIMMER, VALERIE S 735.0 HALLUX VALGUS (ACQUIRED) 09/23/2011 SALLY BEEF TRIMMER, VALERIE S 735.4 HAMMER TOE (ACQUIRED) 09/23/2011 SALLY BEEF TRIMMER, VALERIE S 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 09/23/2011 SALLY BEEF TRIMMER, VALERIE S 735.0 HALLUX VALGUS (ACQUIRED) 09/23/2011 SALLY BEEF TRIMMER, VALERIE S 735.4 HAMMER TOE (ACQUIRED) 09/23/2011 SALLY BEEF TRIMMER, VALERIE S 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 09/23/2011 SALLY BEEF TRIMMER, VALERIE S 735.0 HALLUX VALGUS (ACQUIRED) 09/23/2011 SALLY BEEF TRIMMER, VALERIE S 735.4 HAMMER TOE (ACQUIRED) 09/23/2011 SALLY BEEF TRIMMER, VALERIE S 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 09/23/2011 SALLY BEEF TRIMMER, VALERIE S 735.0 HALLUX VALGUS (ACQUIRED) 09/23/2011 SALLY BEEF TRIMMER, VALERIE S 735.4 HAMMER TOE (ACQUIRED) 09/23/2011 SALLY BEEF TRIMMER, VALERIE S 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 09/23/2011 SALLY BEEF TRIMMER, VALERIE S 735.0 HALLUX VALGUS (ACQUIRED) 09/23/2011 SALLY BEEF TRIMMER, VALERIE S 735.4 HAMMER TOE (ACQUIRED) 09/23/2011 SALLY BEEF TRIMMER, VALERIE S 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 09/23/2011 SALLY BEEF TRIMMER, VALERIE S 735.0 HALLUX VALGUS (ACQUIRED) 09/23/2011 SALLY BEEF TRIMMER, VALERIE S 735.4 HAMMER TOE (ACQUIRED) 09/23/2011 SALLY BEEF TRIMMER, VALERIE S 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 09/23/2011 SALLY BEEF TRIMMER, VALERIE S 735.0 HALLUX VALGUS (ACQUIRED) 09/23/2011 SALLY BEEF TRIMMER, VALERIE S 735.4 HAMMER TOE (ACQUIRED) 09/23/2011 SALLY BEEF TRIMMER, VALERIE S 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 09/23/2011 YATES DO, KARO K 735.0 HALLUX VALGUS (ACQUIRED) 09/23/2011 YATES DO, KARO K 735.4 HAMMER TOE (ACQUIRED) 09/23/2011 YATES DO, KARO K 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 09/23/2011 SALLY BEEF TRIMMER, VALERIE S 735.0 HALLUX VALGUS (ACQUIRED) 09/23/2011 SALLY BEEF TRIMMER, VALERIE S 735.4 HAMMER TOE (ACQUIRED) 09/23/2011 SALLY BEEF TRIMMER, VALERIE S 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 09/23/2011 YATES DO, KARO K 735.0 HALLUX VALGUS (ACQUIRED) 09/23/2011 YATES DO, KARO K 735.4 HAMMER TOE (ACQUIRED) 09/23/2011 YATES DO, KARO K 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 09/23/2011 SALLY BEEF TRIMMER, VALERIE S 735.0 HALLUX VALGUS (ACQUIRED) 09/23/2011 SALLY BEEF TRIMMER, VALERIE S 735.4 HAMMER TOE (ACQUIRED) 09/23/2011 SALLY BEEF TRIMMER, VALERIE S 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 09/23/2011 SALLY BEEF TRIMMER, VALERIE S 735.0 HALLUX VALGUS (ACQUIRED) 09/23/2011 SALLY BEEF TRIMMER, VALERIE S 735.4 HAMMER TOE (ACQUIRED) 09/23/2011 SALLY BEEF TRIMMER, VALERIE S 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 09/23/2011 SALLY BEEF TRIMMER, VALERIE S 735.0 HALLUX VALGUS (ACQUIRED) 09/23/2011 SALLY BEEF TRIMMER, VALERIE S 735.4 HAMMER TOE (ACQUIRED) 09/23/2011 SALLY BEEF TRIMMER, VALERIE S 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 09/23/2011 YATES DO, KARO K 735.0 HALLUX VALGUS (ACQUIRED) 09/23/2011 YATES DO, KARO K 735.4 HAMMER TOE (ACQUIRED) 09/23/2011 YATES DO, KARO K 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 09/23/2011 SALLY BEEF TRIMMER, VALERIE S 735.0 HALLUX VALGUS (ACQUIRED) 09/23/2011 SALLY BEEF TRIMMER, VALERIE S 735.4 HAMMER TOE (ACQUIRED) 09/23/2011 SALLY BEEF TRIMMER, VALERIE S 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 11/18/2011 YATES DO, KARO K 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 11/18/2011 YATES DO, KARO K 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 11/18/2011 ZORAIDA ESPAÑA APRN R 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 11/18/2011 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 11/18/2011 SALLY BEEF TRIMMER, VALERIE S 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 11/18/2011 YATES DO, KARO K 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 11/18/2011 SALLY BEEF TRIMMER, VALERIE S 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 11/18/2011 SALLY BEEF TRIMMER, VALERIE S 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 11/18/2011 YATES DO, KARO K 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 11/18/2011 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 11/18/2011 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 11/18/2011 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 11/18/2011 MICHELLE CAMARGO MD 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 11/18/2011 SALLY BEEF TRIMMER, VALERIE S 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 11/18/2011 SALLY BEEF TRIMMER, VALERIE S 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 11/18/2011 YATES DO, KARO K 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 11/18/2011 SALLY BEEF TRIMMER, VALERIE S 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 11/18/2011 YATES DO, KARO K 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 11/18/2011 SALLY BEEF TRIMMER, VALERIE S 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 11/18/2011 SALLY BEEF TRIMMER, VALERIE S 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 11/18/2011 SALLY BEEF TRIMMER, VALERIE S 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 11/18/2011 SALLY BEEF TRIMMER, VALERIE S 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 11/18/2011 SALLY BEEF TRIMMER, VALERIE S 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 11/18/2011 SALLY BEEF TRIMMER, VALERIE S 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 11/18/2011 SALLY BEEF TRIMMER, VALERIE S 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 11/18/2011 YATES DO, KARO K 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 11/18/2011 SALLY BEEF TRIMMER, VALERIE S 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 11/18/2011 YATES DO, KARO K 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 11/18/2011 SALLY BEEF TRIMMER, VALERIE S 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 11/18/2011 SALLY BEEF TRIMMER, VALERIE S 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 11/18/2011 SALLY BEEF TRIMMER, VALERIE S 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 11/18/2011 YATES DO, KARO K 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 11/18/2011 SALLY BEEF TRIMMER, VALERIE S 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 12/05/2011 Ot 789.00 ABDOMINAL PAIN, UNSPECIFIED SITE 01/20/2012 YATES DO, KARO K 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 01/20/2012 YATES DO, KARO K 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 01/20/2012 ZORAIDA EPSAÑA APRN 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 01/20/2012 733.99 [...] S 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 01/20/2012 SALLY BEEF TRIMMER, VALERIE S 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 01/20/2012 YATES DO, KARO K 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 01/20/2012 SALLY BEEF TRIMMER, VALERIE S 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 01/20/2012 YATES DO, KARO K 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 01/20/2012 SALLY RIVERA VALERIE S 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 01/20/2012 SALLY BEEF TRIMMER, VALERIE S 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 01/20/2012 SALLY BEEF TRIMMER, VALERIE S 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 01/20/2012 SALLY BEEF TRIMMER, VALERIE S 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 01/20/2012 SALLY BEEF TRIMMER, VALERIE S 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 01/20/2012 SALLY BEEF TRIMMER, VALERIE S 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 01/20/2012 SALLY BEEF TRIMMER, VALERIE S 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 01/20/2012 YATES DO, KARO K 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 01/20/2012 SALLY BEEF TRIMMER, VALERIE S 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 01/20/2012 YATES DO, KARO K 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 01/20/2012 SALLY BEEF TRIMMER, VALEIRE S 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 01/20/2012 SALLY BEEF TRIMMER, VALERIE S 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 01/20/2012 SALLY BEEF TRIMMER, VALERIE S 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 01/20/2012 YATES DO, KARO K 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 01/20/2012 SALLY BEEF TRIMMER, VALERIE S 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 02/09/2012 [...] AT A HEALTH CARE FACILITY 02/14/2012 SALLY BEEF TRIMMERADRIAN TalleyA S V70.0 ROUTINE GENERAL MEDICAL EXAMINATION AT A HEALTH CARE FACILITY 02/14/2012 SALLY BEEF TRIMMERSERINA TalleyNDA S V70.0 ROUTINE GENERAL MEDICAL EXAMINATION AT A HEALTH CARE FACILITY 02/14/2012 SERINA ZAVALA APRNNDA S V70.0 ROUTINE GENERAL MEDICAL EXAMINATION AT A HEALTH CARE FACILITY 02/14/2012 SERINA ZAVALA APRNNDA S V70.0 ROUTINE GENERAL MEDICAL EXAMINATION AT A HEALTH CARE FACILITY 02/14/2012 SALLY BEEF TRIMMERSERINA TalleyNDA S V70.0 ROUTINE GENERAL MEDICAL EXAMINATION [...] K 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 03/16/2012 ESPAÑA BEEF TRIMMER, ZORAIDA R 719.07 EDEMA FOOT 03/16/2012 ESPAÑA BEEF TRIMMER, ZORAIDA R 726.90 CAPSULITIS 03/16/2012 ESPAÑA BEEF TRIMMER, ZORAIDA R 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 03/16/2012 719.07 EDEMA FOOT 03/16/2012 726.90 CAPSULITIS 03/16/2012 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 03/16/2012 SALLY BEEF TRIMMER, VALERIE S 719.07 EDEMA FOOT 03/16/2012 SALLY BEEF TRIMMER, VALERIE S 726.90 CAPSULITIS 03/16/2012 SALLY BEEF TRIMMER, VALERIE S 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 03/16/2012 YATES DO, KARO K 719.07 EDEMA FOOT 03/16/2012 YATES DO, KARO K 726.90 CAPSULITIS 03/16/2012 YATES DO, KARO K 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 03/16/2012 SALLY BEEF TRIMMER, VALERIE S 719.07 EDEMA FOOT 03/16/2012 SALLY BEEF TRIMMER, VALERIE S 726.90 CAPSULITIS 03/16/2012 SALLY BEEF TRIMMER, VALERIE S 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 03/16/2012 SALLY BEEF TRIMMER, VALERIE S 719.07 EDEMA FOOT 03/16/2012 SALLY BEEF TRIMMER, VALERIE S 726.90 CAPSULITIS 03/16/2012 SALLY BEEF TRIMMER, VALERIE S 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 03/16/2012 [...] RIVERA VALERIE S 726.90 CAPSULITIS 03/16/2012 SALLY BEEF TRIMMER, VALERIE S 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 03/16/2012 SALLY BEEF TRIMMER, VALERIE S 719.07 EDEMA FOOT 03/16/2012 SALLY RIVERA, VALERIE S 726.90 CAPSULITIS 03/16/2012 SALLY BEEF TRIMMER, VALERIE S 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 03/16/2012 [...] K 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 03/16/2012 SALLY BEEF TRIMMER, VALERIE S 719.07 EDEMA FOOT 03/16/2012 SALLY BEEF TRIMMER, VALERIE S 726.90 CAPSULITIS 03/16/2012 SALLY BEEF TRIMMER, VALERIE S 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 03/16/2012 SALLY BEEF TRIMMER, VALERIE S 719.07 EDEMA FOOT 03/16/2012 SALLY BEEF TRIMMER, VALERIE S 726.90 CAPSULITIS 03/16/2012 SALLY BEEF TRIMMER, VALERIE S 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 03/16/2012 SALLY BEEF TRIMMER, VALERIE S 719.07 EDEMA FOOT 03/16/2012 SALLY BEEF TRIMMER, VALERIE S 726.90 CAPSULITIS 03/16/2012 SALLY BEEF TRIMMER, VALERIE S 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 03/16/2012 SALLY BEEF TRIMMER, VALERIE S 719.07 EDEMA FOOT 03/16/2012 SALLY BEEF TRIMMER, VALERIE S 726.90 CAPSULITIS 03/16/2012 SALLY BEEF TRIMMER, VALERIE S 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 03/16/2012 SALLY BEEF TRIMMER, VALERIE S 719.07 EDEMA FOOT 03/16/2012 SALLY BEEF TRIMMER, VALERIE S 726.90 CAPSULITIS 03/16/2012 SALLY BEEF TRIMMER, VALERIE S 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 03/16/2012 SALLY BEEF TRIMMER, VALERIE S 719.07 EDEMA FOOT 03/16/2012 SALLY BEEF TRIMMER, VALERIE S 726.90 CAPSULITIS 03/16/2012 SALLY BEEF TRIMMER, VALERIE S 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 03/16/2012 SALLY BEEF TRIMMER, VALERIE S 719.07 EDEMA FOOT 03/16/2012 SALLY BEEF TRIMMER, VALERIE S 726.90 CAPSULITIS 03/16/2012 SALLY BEEF TRIMMER, VALERIE S 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 03/16/2012 YATES DO, KARO K 719.07 EDEMA FOOT 03/16/2012 YATES DO, KARO K 726.90 CAPSULITIS 03/16/2012 YATES DO, KARO K 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 03/16/2012 SALLY BEEF TRIMMER, VALERIE S 719.07 EDEMA FOOT 03/16/2012 SALLY BEEF TRIMMER, VALERIE S 726.90 CAPSULITIS 03/16/2012 SALLY BEEF TRIMMER, VALERIE S 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 03/16/2012 YATES DO, KARO K 719.07 EDEMA FOOT 03/16/2012 YATES DO, KARO K 726.90 CAPSULITIS 03/16/2012 YATES DO, KARO K 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 03/16/2012 SALLY BEEF TRIMMER, VALERIE S 719.07 EDEMA FOOT 03/16/2012 SALLY BEEF TRIMMER, VALERIE S 726.90 CAPSULITIS 03/16/2012 SALLY BEEF TRIMMER, VALERIE S 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 03/16/2012 SALLY BEEF TRIMMER, VALERIE S 719.07 EDEMA FOOT 03/16/2012 SALLY BEEF TRIMMER, VALERIE S 726.90 CAPSULITIS 03/16/2012 SALLY BEEF TRIMMER, VALERIE S 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 03/16/2012 SALLY BEEF TRIMMER, VALERIE S 719.07 EDEMA FOOT 03/16/2012 SALLY BEEF TRIMMER, VALERIE S 726.90 CAPSULITIS 03/16/2012 SALLY BEEF TRIMMER, VALERIE S 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 03/16/2012 YATES DO, KARO K 719.07 EDEMA FOOT 03/16/2012 YATES DO, KARO K 726.90 CAPSULITIS 03/16/2012 YATES DO, KARO K 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 03/16/2012 SALLY BEEF TRIMMER, VALERIE S 719.07 EDEMA FOOT 03/16/2012 SALLY BEEF TRIMMER, VALERIE S 726.90 CAPSULITIS 03/16/2012 SALLY BEEF TRIMMER, VALERIE S 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 03/30/2012 YATES DO KARO K V45.89 POSTSURGICAL STATUS 03/30/2012 YATES DO KARO K V45.89 POSTSURGICAL STATUS 03/30/2012 ESPAÑA BEEF TRIMMER, ZORAIDA R V45.89 POSTSURGICAL STATUS 03/30/2012 V45.89 POSTSURGICAL STATUS 03/30/2012 SALLY BEEF TRIMMER, VALERIE S V45.89 POSTSURGICAL STATUS 03/30/2012 YATES DO KARO K V45.89 POSTSURGICAL STATUS 03/30/2012 SALLY BEEF TRIMMER, VALERIE S V45.89 POSTSURGICAL STATUS 03/30/2012 SALLY BEEF TRIMMER, VALERIE S V45.89 POSTSURGICAL STATUS 03/30/2012 YATES DO KARO K V45.89 POSTSURGICAL STATUS 03/30/2012 V45.89 POSTSURGICAL STATUS 03/30/2012 V45.89 POSTSURGICAL STATUS 03/30/2012 V45.89 POSTSURGICAL STATUS 03/30/2012 MICHELLE CAMARGO MD V45.89 POSTSURGICAL STATUS 03/30/2012 SALLY BEEF TRIMMER, VALERIE S V45.89 POSTSURGICAL STATUS 03/30/2012 SALLY BEEF TRIMMER, VALERIE S V45.89 POSTSURGICAL STATUS 03/30/2012 YATES DO KARO K V45.89 POSTSURGICAL STATUS 03/30/2012 SALLY BEEF TRIMMER, VALERIE S V45.89 POSTSURGICAL STATUS 03/30/2012 YATES DO KARO K V45.89 POSTSURGICAL STATUS 03/30/2012 SALLY BEEF TRIMMER, VALERIE S V45.89 POSTSURGICAL STATUS 03/30/2012 SALLY BEEF TRIMMER, VALERIE S V45.89 POSTSURGICAL STATUS 03/30/2012 SALLY BEEF TRIMMER, VALERIE S V45.89 POSTSURGICAL STATUS 03/30/2012 SALLY BEEF TRIMMER, VALERIE S V45.89 POSTSURGICAL STATUS 03/30/2012 SALLY BEEF TRIMMER, VALERIE S V45.89 POSTSURGICAL STATUS 03/30/2012 SALLY BEEF TRIMMER, VALERIE S V45.89 POSTSURGICAL STATUS 03/30/2012 SALLY BEEF TRIMMER, VALERIE S V45.89 POSTSURGICAL STATUS 03/30/2012 YATES DO KARO K V45.89 POSTSURGICAL STATUS 03/30/2012 SALLY BEEF TRIMMER, VALERIE S V45.89 POSTSURGICAL STATUS 03/30/2012 YATES DO, KARO K V45.89 POSTSURGICAL STATUS 03/30/2012 SALLY BEEF TRIMMER, VALERIE S V45.89 POSTSURGICAL STATUS 03/30/2012 SALLY BEEF TRIMMER, VALERIE S V45.89 POSTSURGICAL STATUS 03/30/2012 SALLY BEEF TRIMMER, VALERIE S V45.89 POSTSURGICAL STATUS 03/30/2012 YTAES DO, KARO K V45.89 POSTSURGICAL STATUS 03/30/2012 SALLY BEEF TRIMMER, VALERIE S V45.89 POSTSURGICAL STATUS 05/29/2012 TACO BEEF TRIMMER, ZORAIDA R 786.2 cough 05/29/2012 786.2 cough 05/29/2012 SALLY BEEF TRIMMER, VALERIE S 786.2 cough 05/29/2012 YATES DO, KARO K 786.2 cough 05/29/2012 SALLY BEEF TRIMMER, VALERIE S 786.2 cough 05/29/2012 SALLY BEEF TRIMMER, VALERIE S 786.2 cough 05/29/2012 YATES DO KARO K 786.2 cough 05/29/2012 786.2 cough 05/29/2012 786.2 COUGH 05/29/2012 786.2 COUGH 05/29/2012 MICHELLE CAMARGO MD 786.2 COUGH 05/29/2012 SALLY BEEF TRIMMER, VALERIE S 786.2 COUGH 05/29/2012 SALLY BEEF TRIMMER, VALERIE S 786.2 COUGH 05/29/2012 YATES DO, KARO K 786.2 COUGH 05/29/2012 SALLY BEEF TRIMMER, VALERIE S 786.2 COUGH 05/29/2012 YATES DO, KARO K 786.2 COUGH 05/29/2012 SALLY BEEF TRIMMER, VALERIE S 786.2 COUGH 05/29/2012 SALLY BEEF TRIMMER, VALERIE S 786.2 COUGH 05/29/2012 SALLY BEEF TRIMMER, VALERIE S 786.2 COUGH 05/29/2012 SALLY BEEF TRIMMER, VALERIE S 786.2 COUGH 05/29/2012 SALLY BEEF TRIMMER, VALERIE S 786.2 COUGH 05/29/2012 SALLY BEEF TRIMMER, VALERIE S 786.2 COUGH 05/29/2012 SALLY BEEF TRIMMER, VALERIE S 786.2 COUGH 05/29/2012 YATES DO, KARO K 786.2 COUGH 05/29/2012 SALLY BEEF TRIMMER, VALERIE S 786.2 COUGH 05/29/2012 YATES DO, KARO K 786.2 COUGH 05/29/2012 SALLY BEEF TRIMMER, VALERIE S 786.2 COUGH 05/29/2012 SALLY BEEF TRIMMER, VALERIE S 786.2 COUGH 05/29/2012 SALLY BEEF TRIMMER, VALERIE S 786.2 COUGH 05/29/2012 YATES DO, KARO K 786.2 COUGH 05/29/2012 SALLY BEEF TRIMMER, VALERIE S 786.2 COUGH 06/05/2012 461.9 SINUSITIS ACUTE 06/05/2012 SALLY BEEF TRIMMER, VALERIE S 461.9 SINUSITIS ACUTE 06/05/2012 YATES DO, KARO K 461.9 SINUSITIS ACUTE 06/05/2012 SALLY BEEF TRIMMER, VALERIE S 461.9 SINUSITIS ACUTE 06/05/2012 SALLY BEEF TRIMMER, VALERIE S 461.9 SINUSITIS ACUTE 06/05/2012 YATES DO KARO K 461.9 SINUSITIS ACUTE 06/05/2012 461.9 SINUSITIS ACUTE 06/05/2012 461.9 SINUSITIS ACUTE 06/05/2012 461.9 SINUSITIS ACUTE 06/05/2012 MICHELLE CAMARGO MD 461.9 SINUSITIS ACUTE 06/05/2012 SALLY BEEF TRIMMER, VALERIE S 461.9 SINUSITIS ACUTE 06/05/2012 SALLY BEEF TRIMMER, VALERIE S 461.9 SINUSITIS ACUTE 06/05/2012 YATES DO KARO K 461.9 SINUSITIS ACUTE 06/05/2012 SALLY BEEF TRIMMER, VALERIE S 461.9 SINUSITIS ACUTE 06/05/2012 YATES DO, KARO K 461.9 SINUSITIS ACUTE 06/05/2012 SALLY BEEF TRIMMER, VALERIE S 461.9 SINUSITIS ACUTE 06/05/2012 SALLY BEEF TRIMMER, VALERIE S 461.9 SINUSITIS ACUTE 06/05/2012 SALLY BEEF TRIMMER, VALERIE S 461.9 SINUSITIS ACUTE 06/05/2012 SALLY BEEF TRIMMER, VALERIE S 461.9 SINUSITIS ACUTE 06/05/2012 SALLY BEEF TRIMMER, VALERIE S 461.9 SINUSITIS ACUTE 06/05/2012 SALLY BEEF TRIMMER, VALERIE S 461.9 SINUSITIS ACUTE 06/05/2012 SALLY BEEF TRIMMER, VALERIE S 461.9 SINUSITIS ACUTE 06/05/2012 HALEY YATES DOA K 461.9 SINUSITIS ACUTE 06/05/2012 SALLY BEEF TRIMMER, VALERIE S 461.9 SINUSITIS ACUTE 06/05/2012 HALEY YATES DOA K 461.9 SINUSITIS ACUTE 06/05/2012 SALLY BEEF TRIMMER, VALERIE S 461.9 SINUSITIS ACUTE 06/05/2012 SALLY BEEF TRIMMER, VALERIE S 461.9 SINUSITIS ACUTE 06/05/2012 SALLY BEEF TRIMMER, VALERIE S 461.9 SINUSITIS ACUTE 06/05/2012 HALEY YATES DOA K 461.9 SINUSITIS ACUTE 06/05/2012 SALLY BEEF TRIMMER, VALERIE S 461.9 SINUSITIS ACUTE 07/04/2012 SALLY BEEF TRIMMER, VALERIE S 535.50 UNSPECIFIED GASTRITIS AND GASTRODUODENITIS (WITHOUT HEMORRHAGE) 07/04/2012 SALLY BEEF TRIMMER, VALERIE S 535.50 UNSPECIFIED GASTRITIS AND GASTRODUODENITIS (WITHOUT HEMORRHAGE) 07/04/2012 KARO YATES DO 535.50 UNSPECIFIED GASTRITIS AND GASTRODUODENITIS (WITHOUT HEMORRHAGE) 07/04/2012 535.50 UNSPECIFIED GASTRITIS AND GASTRODUODENITIS (WITHOUT HEMORRHAGE) 07/04/2012 535.50 UNSPECIFIED GASTRITIS AND GASTRODUODENITIS (WITHOUT HEMORRHAGE) 07/04/2012 535.50 UNSPECIFIED GASTRITIS AND GASTRODUODENITIS (WITHOUT HEMORRHAGE) 07/04/2012 MICHELLE CAMARGO MD 535.50 UNSPECIFIED GASTRITIS AND GASTRODUODENITIS (WITHOUT HEMORRHAGE) 07/04/2012 SALLY BEEF TRIMMER, VALERIE S 535.50 UNSPECIFIED GASTRITIS AND GASTRODUODENITIS (WITHOUT HEMORRHAGE) 07/04/2012 SALLY BEEF TRIMMER, VALERIE S 535.50 UNSPECIFIED GASTRITIS AND GASTRODUODENITIS (WITHOUT HEMORRHAGE) 07/04/2012 KARO YATES DO 535.50 UNSPECIFIED GASTRITIS AND GASTRODUODENITIS (WITHOUT HEMORRHAGE) 07/04/2012 SALLY BEEF TRIMMER, VALERIE S 535.50 UNSPECIFIED GASTRITIS AND GASTRODUODENITIS (WITHOUT HEMORRHAGE) 07/04/2012 YATES DO KARO K 535.50 UNSPECIFIED GASTRITIS AND GASTRODUODENITIS (WITHOUT HEMORRHAGE) 07/04/2012 SALLY BEEF TRIMMER, VALERIE S 535.50 UNSPECIFIED GASTRITIS AND GASTRODUODENITIS (WITHOUT HEMORRHAGE) 07/04/2012 SALLY BEEF TRIMMER, VALERIE S 535.50 UNSPECIFIED GASTRITIS AND GASTRODUODENITIS (WITHOUT HEMORRHAGE) 07/04/2012 SALLY BEEF TRIMMER, VALERIE S 535.50 UNSPECIFIED GASTRITIS AND GASTRODUODENITIS (WITHOUT HEMORRHAGE) 07/04/2012 SALLY BEEF TRIMMER, VALERIE S 535.50 UNSPECIFIED GASTRITIS AND GASTRODUODENITIS (WITHOUT HEMORRHAGE) 07/04/2012 SALLY BEEF TRIMMER, VALERIE S 535.50 UNSPECIFIED GASTRITIS AND GASTRODUODENITIS (WITHOUT HEMORRHAGE) 07/04/2012 SALLY BEEF TRIMMER, VALERIE S 535.50 UNSPECIFIED GASTRITIS AND GASTRODUODENITIS (WITHOUT HEMORRHAGE) 07/04/2012 SALLY BEEF TRIMMER, VALERIE S 535.50 UNSPECIFIED GASTRITIS AND GASTRODUODENITIS (WITHOUT HEMORRHAGE) 07/04/2012 YATES DO KARO K 535.50 UNSPECIFIED GASTRITIS AND GASTRODUODENITIS (WITHOUT HEMORRHAGE) 07/04/2012 SALLY BEEF TRIMMER, VALERIE S 535.50 UNSPECIFIED GASTRITIS AND GASTRODUODENITIS (WITHOUT HEMORRHAGE) 07/04/2012 YATES DO KARO K 535.50 UNSPECIFIED GASTRITIS AND GASTRODUODENITIS (WITHOUT HEMORRHAGE) 07/04/2012 SALLY BEEF TRIMMER, VALERIE S 535.50 UNSPECIFIED GASTRITIS AND GASTRODUODENITIS (WITHOUT HEMORRHAGE) 07/04/2012 SALLY BEEF TRIMMER, VALERIE S 535.50 UNSPECIFIED GASTRITIS AND GASTRODUODENITIS (WITHOUT HEMORRHAGE) 07/04/2012 SALLY BEEF TRIMMER, VALERIE S 535.50 UNSPECIFIED GASTRITIS AND GASTRODUODENITIS (WITHOUT HEMORRHAGE) 07/04/2012 YATES DO KARO K 535.50 UNSPECIFIED GASTRITIS AND GASTRODUODENITIS (WITHOUT HEMORRHAGE) 07/04/2012 SALLY BEEF TRIMMER, VALERIE S 535.50 UNSPECIFIED GASTRITIS AND GASTRODUODENITIS (WITHOUT HEMORRHAGE) 07/30/2012 SALLY BEEF TRIMMER, VALERIE S 788.1 DYSURIA 07/30/2012 YATES DO, KARO K 788.1 DYSURIA 07/30/2012 788.1 DYSURIA 07/30/2012 788.1 DYSURIA 07/30/2012 788.1 DYSURIA 07/30/2012 MICHELLE CAMARGO MD 788.1 DYSURIA 07/30/2012 SALLY BEEF TRIMMER, VALERIE S 788.1 DYSURIA 07/30/2012 SALLY BEEF TRIMMER, VALERIE S 788.1 DYSURIA 07/30/2012 YATES DO, KARO K 788.1 DYSURIA 07/30/2012 SALLY BEEF TRIMMER, VALERIE S 788.1 DYSURIA 07/30/2012 YATES DO, KARO K 788.1 DYSURIA 07/30/2012 SALLY BEEF TRIMMER, VALERIE S 788.1 DYSURIA 07/30/2012 SALLY BEEF TRIMMER, VALERIE S 788.1 DYSURIA 07/30/2012 SALLY BEEF TRIMMER, VALERIE S 788.1 DYSURIA 07/30/2012 SALLY BEEF TRIMMER, VALERIE S 788.1 DYSURIA 07/30/2012 SALLY BEEF TRIMMER, VALERIE S 788.1 DYSURIA 07/30/2012 SALLY BEEF TRIMMER, VALERIE S 788.1 DYSURIA 07/30/2012 SALLY BEEF TRIMMER, VALERIE S 788.1 DYSURIA 07/30/2012 YATES DO, KARO K 788.1 DYSURIA 07/30/2012 SALLY BEEF TRIMMER, VALERIE S 788.1 DYSURIA 07/30/2012 YATES DO, KARO K 788.1 DYSURIA 07/30/2012 SALLY BEEF TRIMMER, VALERIE S 788.1 DYSURIA 07/30/2012 SALLY BEEF TRIMMER, VALERIE S 788.1 DYSURIA 07/30/2012 SALLY BEEF TRIMMER, VALERIE S 788.1 DYSURIA 07/30/2012 YATES DO, KARO K 788.1 DYSURIA 07/30/2012 SALLY BEEF TRIMMER, VALERIE S 788.1 DYSURIA 02/04/2013 MARY JO ABRAMS, MICHELLE 719.40 ARTHRAIGIA UNSPEC 02/04/2013 SALLY BEEF TRIMMER, VALERIE S 719.40 ARTHRAIGIA UNSPEC 02/04/2013 SALLY BEEF TRIMMER, VALERIE S 719.40 ARTHRAIGIA UNSPEC 02/04/2013 YATES DO, KARO K 719.40 ARTHRAIGIA UNSPEC 02/04/2013 SALLY BEEF TRIMMER, VALERIE S 719.40 ARTHRAIGIA UNSPEC 02/04/2013 YATES DO, KARO K 719.40 ARTHRAIGIA UNSPEC 02/04/2013 SALLY BEEF TRIMMER, VALERIE S 719.40 ARTHRAIGIA UNSPEC 02/04/2013 SALLY BEEF TRIMMER, VALERIE S 719.40 ARTHRAIGIA UNSPEC 02/04/2013 SALLY BEEF TRIMMER, VALERIE S 719.40 ARTHRAIGIA UNSPEC 02/04/2013 SALLY BEEF TRIMMER, VALERIE S 719.40 ARTHRAIGIA UNSPEC 02/04/2013 SALLY BEEF TRIMMER, VALERIE S 719.40 ARTHRAIGIA UNSPEC 02/04/2013 SALLY BEEF TRIMMER, VALERIE S 719.40 ARTHRAIGIA UNSPEC 02/04/2013 SALLY BEEF TRIMMER, VALERIE S 719.40 ARTHRAIGIA UNSPEC 02/04/2013 YATES DO, KARO K 719.40 ARTHRAIGIA UNSPEC 02/04/2013 SALLY BEEF TRIMMER, VALERIE S 719.40 ARTHRAIGIA UNSPEC 02/04/2013 YATES DO, KARO K 719.40 ARTHRAIGIA UNSPEC 02/04/2013 SALLY BEEF TRIMMER, VALERIE S 719.40 ARTHRAIGIA UNSPEC 02/04/2013 SALLY BEEF TRIMMER, VALERIE S 719.40 ARTHRAIGIA UNSPEC 02/04/2013 SALLY BEEF TRIMMER, VALERIE S 719.40 ARTHRAIGIA UNSPEC 02/04/2013 YATES DO, KARO K 719.40 ARTHRAIGIA UNSPEC 02/04/2013 SALLY BEEF TRIMMER, VALERIE S 719.40 ARTHRAIGIA UNSPEC 04/02/2013 SALLY BEEF TRIMMER, VALERIE S 786.52 CHEST WALL PAIN 04/02/2013 YATES DO, KARO K 786.52 CHEST WALL PAIN 04/02/2013 SALLY BEEF TRIMMER, VALERIE S 786.52 CHEST WALL PAIN 04/02/2013 YATES DO, KARO K 786.52 CHEST WALL PAIN 04/02/2013 SALLY BEEF TRIMMER, VALERIE S 786.52 CHEST WALL PAIN 04/02/2013 SALLY BEEF TRIMMER, VALERIE S 786.52 CHEST WALL PAIN 04/02/2013 SALLY BEEF TRIMMER, VALERIE S 786.52 CHEST WALL PAIN 04/02/2013 SALLY BEEF TRIMMER, VALERIE S 786.52 CHEST WALL PAIN 04/02/2013 SALLY BEEF TRIMMER, VALERIE S 786.52 CHEST WALL PAIN 04/02/2013 SALLY BEEF TRIMMER, VALERIE S 786.52 CHEST WALL PAIN 04/02/2013 SALLY BEEF TRIMMER, VALERIE S 786.52 CHEST WALL PAIN 04/02/2013 YATES DO KARO K 786.52 CHEST WALL PAIN 04/02/2013 SALLY BEEF TRIMMER, VALERIE S 786.52 CHEST WALL PAIN 04/02/2013 YATES DO, KARO K 786.52 CHEST WALL PAIN 04/02/2013 SALLY BEEF TRIMMER, VALERIE S 786.52 CHEST WALL PAIN 04/02/2013 SALLY BEEF TRIMMER, VALERIE S 786.52 CHEST WALL PAIN 04/02/2013 SALLY BEEF TRIMMER, VALERIE S 786.52 CHEST WALL PAIN 04/02/2013 YATES DO, KARO K 786.52 CHEST WALL PAIN 04/02/2013 SALLY BEEF TRIMMER, VALERIE S 786.52 CHEST WALL PAIN 04/06/2013 MILAN RAMIREZ KARO K 053.9 HERPES ZOSTER (SHINGLES) 04/06/2013 YATES DO, KARO K 382.00 ACUTE OTITIS MEDIA (LEFT) 04/06/2013 SALLY BEEF TRIMMER, VALERIE S 053.9 HERPES ZOSTER (SHINGLES) 04/06/2013 SALLY BEEF TRIMMER, VALERIE S 382.00 ACUTE OTITIS MEDIA (LEFT) 04/06/2013 AYTES DO, KARO K 053.9 HERPES ZOSTER (SHINGLES) 04/06/2013 YATES DO, KARO K 382.00 ACUTE OTITIS MEDIA (LEFT) 04/06/2013 SALLY BEEF TRIMMER, VALERIE S 053.9 HERPES ZOSTER (SHINGLES) 04/06/2013 SALLY BEEF TRIMMER, VALERIE S 382.00 ACUTE OTITIS MEDIA (LEFT) 04/06/2013 SALLY BEEF TRIMMER, VALERIE S 053.9 HERPES ZOSTER (SHINGLES) 04/06/2013 SALLY BEEF TRIMMER, VALERIE S 382.00 ACUTE OTITIS MEDIA (LEFT) 04/06/2013 SALLY BEEF TRIMMER, VALERIE S 053.9 HERPES ZOSTER (SHINGLES) 04/06/2013 SALLY BEEF TRIMMER, VALERIE S 382.00 ACUTE OTITIS MEDIA (LEFT) 04/06/2013 SALLY BEEF TRIMMER, VALERIE S 053.9 HERPES ZOSTER (SHINGLES) 04/06/2013 SALLY BEEF TRIMMER, VALERIE S 382.00 ACUTE OTITIS MEDIA (LEFT) 04/06/2013 SALLY BEEF TRIMMER, VALERIE S 053.9 HERPES ZOSTER (SHINGLES) 04/06/2013 SALLY BEEF TRIMMER, VALERIE S 382.00 ACUTE OTITIS MEDIA (LEFT) 04/06/2013 SALLY BEEF TRIMMER, VALERIE S 053.9 HERPES ZOSTER (SHINGLES) 04/06/2013 SALLY BEEF TRIMMER, VALERIE S 382.00 ACUTE OTITIS MEDIA (LEFT) 04/06/2013 SALLY BEEF TRIMMER, VALERIE S 053.9 HERPES ZOSTER (SHINGLES) 04/06/2013 SALLY BEEF TRIMMER, VALERIE S 382.00 ACUTE OTITIS MEDIA (LEFT) 04/06/2013 YATES DO, KARO K 053.9 HERPES ZOSTER (SHINGLES) 04/06/2013 YATES DO, KARO K 382.00 ACUTE OTITIS MEDIA (LEFT) 04/06/2013 SALLY BEEF TRIMMER, VALERIE S 053.9 HERPES ZOSTER (SHINGLES) 04/06/2013 SALLY BEEF TRIMMER, VALERIE S 382.00 ACUTE OTITIS MEDIA (LEFT) 04/06/2013 YATES DO, KARO K 053.9 HERPES ZOSTER (SHINGLES) 04/06/2013 YATES DO, KARO K 382.00 ACUTE OTITIS MEDIA (LEFT) 04/06/2013 SALLY BEEF TRIMMER, VALERIE S 053.9 HERPES ZOSTER (SHINGLES) 04/06/2013 SALLY BEEF TRIMMER, VALERIE S 382.00 ACUTE OTITIS MEDIA (LEFT) 04/06/2013 SALLY BEEF TRIMMER, VALERIE S 053.9 HERPES ZOSTER (SHINGLES) 04/06/2013 SALLY BEEF TRIMMER, VALERIE S 382.00 ACUTE OTITIS MEDIA (LEFT) 04/06/2013 SALLY BEEF TRIMMER, VALERIE S 053.9 HERPES ZOSTER (SHINGLES) 04/06/2013 SALLY BEEF TRIMMER, VALERIE S 382.00 ACUTE OTITIS MEDIA (LEFT) 04/06/2013 YATES DO, KARO K 053.9 HERPES ZOSTER (SHINGLES) 04/06/2013 YATES DO, KARO K 382.00 ACUTE OTITIS MEDIA (LEFT) 04/06/2013 SALLY BEEF TRIMMER, VALERIE S 053.9 HERPES ZOSTER (SHINGLES) 04/06/2013 SALLY BEEF TRIMMER, VALERIE S 382.00 ACUTE OTITIS MEDIA (LEFT) 04/10/2013 SALLY BEEF TRIMMER, VALERIE S 380.4 CERUMEN IMPACTION 04/10/2013 SALLY BEEF TRIMMER, VALERIE S V76.12 MAMMOGRAM SCREENING 04/10/2013 YATES DO, KARO K 380.4 CERUMEN IMPACTION 04/10/2013 YATES DO, KARO K V76.12 MAMMOGRAM SCREENING 04/10/2013 SALLY BEEF TRIMMER, VALERIE S 380.4 CERUMEN IMPACTION 04/10/2013 SALLY BEEF TRIMMER, VALERIE S V76.12 MAMMOGRAM SCREENING 04/10/2013 SALLY BEEF TRIMMER, VALERIE S 380.4 CERUMEN IMPACTION 04/10/2013 SALLY BEEF TRIMMER, VALERIE S V76.12 MAMMOGRAM SCREENING 04/10/2013 SALLY BEEF TRIMMER, VALERIE S 380.4 CERUMEN IMPACTION 04/10/2013 SALLY BEEF TRIMMER, VALERIE S V76.12 MAMMOGRAM SCREENING 04/10/2013 SALLY BEEF TRIMMER, VALERIE S 380.4 CERUMEN IMPACTION 04/10/2013 SALLY BEEF TRIMMER, VALERIE S V76.12 MAMMOGRAM SCREENING 04/10/2013 SALLY BEEF TRIMMER, VALERIE S 380.4 CERUMEN IMPACTION 04/10/2013 SALLY BEEF TRIMMER, VALERIE S V76.12 MAMMOGRAM SCREENING 04/10/2013 SALLY BEEF TRIMMER, VALERIE S 380.4 CERUMEN IMPACTION 04/10/2013 SALLY BEEF TRIMMER, VALERIE S V76.12 MAMMOGRAM SCREENING 04/10/2013 SALLY BEEF TRIMMER, VALERIE S 380.4 CERUMEN IMPACTION 04/10/2013 SALLY BEEF TRIMMER, VALERIE S V76.12 MAMMOGRAM SCREENING 04/10/2013 YATES DO, KARO K 380.4 CERUMEN IMPACTION 04/10/2013 YATES DO, KARO K V76.12 MAMMOGRAM SCREENING 04/10/2013 SALLY BEEF TRIMMER, VALERIE S 380.4 CERUMEN IMPACTION 04/10/2013 SALLY BEEF TRIMMER, VALERIE S V76.12 MAMMOGRAM SCREENING 04/10/2013 YATES DO, KARO K 380.4 CERUMEN IMPACTION 04/10/2013 YATES DO, KARO K V76.12 MAMMOGRAM SCREENING 04/10/2013 SALLY BEEF TRIMMER, VALERIE S 380.4 CERUMEN IMPACTION 04/10/2013 SALLY BEEF TRIMMER, VALERIE S V76.12 MAMMOGRAM SCREENING 04/10/2013 SALLY BEEF TRIMMER, VALERIE S 380.4 CERUMEN IMPACTION 04/10/2013 SALLY BEEF TRIMMER, VALERIE S V76.12 MAMMOGRAM SCREENING 04/10/2013 SALLY BEEF TRIMMER, VALERIE S 380.4 CERUMEN IMPACTION 04/10/2013 SALLY BEEF TRIMMER, VALERIE S V76.12 MAMMOGRAM SCREENING 04/10/2013 YATES DO, KARO K 380.4 CERUMEN IMPACTION 04/10/2013 YATES DO, KARO K V76.12 MAMMOGRAM SCREENING 04/10/2013 SALLY BEEF TRIMMER, VALERIE S 380.4 CERUMEN IMPACTION 04/10/2013 SALLY BEEF TRIMMER, VALERIE S V76.12 MAMMOGRAM SCREENING 09/09/2013 SALLY BEEF TRIMMER, VALERIE S 272.4 HYPERLIPIDEMIA 09/09/2013 SALLY BEEF TRIMMER, VALERIE S 272.4 HYPERLIPIDEMIA 09/09/2013 SALLY BEEF TRIMMER, VALERIE S 272.4 HYPERLIPIDEMIA 09/09/2013 SALLY BEEF TRIMMER, VALERIE S 272.4 HYPERLIPIDEMIA 09/09/2013 YATES DO, KARO K 272.4 HYPERLIPIDEMIA 09/09/2013 SALLY BEEF TRIMMER, VALERIE S 272.4 HYPERLIPIDEMIA 09/09/2013 YATES DO, KARO K 272.4 HYPERLIPIDEMIA 09/09/2013 SALLY BEEF TRIMMER, VALERIE S 272.4 HYPERLIPIDEMIA 09/09/2013 SALLY BEEF TRIMMER, VALERIE S 272.4 HYPERLIPIDEMIA 09/09/2013 SALLY BEEF TRIMMER, VALERIE S 272.4 HYPERLIPIDEMIA 09/09/2013 YATES DO, KARO K 272.4 HYPERLIPIDEMIA 09/09/2013 SALLY BEEF TRIMMER, VALERIE S 272.4 HYPERLIPIDEMIA 10/17/2013 SALLY BEEF TRIMMER, VALERIE S 724.5 BACK PAIN, GENERAL 10/17/2013 SALLY BEEF TRIMMER, VALERIE S 724.5 BACK PAIN, GENERAL 10/17/2013 SALLY BEEF TRIMMER, VALERIE S 724.5 BACK PAIN, GENERAL 10/17/2013 YATES DO, KARO K 724.5 BACK PAIN, GENERAL 10/17/2013 SALLY BEEF TRIMMER, VALERIE S 724.5 BACK PAIN, GENERAL 10/17/2013 YATES DO, KARO K 724.5 BACK PAIN, GENERAL 10/17/2013 SALLY BEEF TRIMMER, VALERIE S 724.5 BACK PAIN, GENERAL 10/17/2013 SALLY BEEF TRIMMER, VALERIE S 724.5 BACK PAIN, GENERAL 10/17/2013 SALLY BEEF TRIMMER, VALERIE S 724.5 BACK PAIN, GENERAL 10/17/2013 YATES DO, KARO K 724.5 BACK PAIN, GENERAL 10/17/2013 SALLY BEEF TRIMMER, VALERIE S 724.5 BACK PAIN, GENERAL 12/03/2013 SALLY BEEF TRIMMER, VALERIE S 496 COPD 12/03/2013 SALLY BEEF TRIMMER, VALERIE S 599.0 URINARY TRACT INFECTION 12/03/2013 SALLY BEEF TRIMMER, VALERIE S 788.41 URINARY FREQUENCY 12/03/2013 SALLY BEEF TRIMMER, VALERIE S 496 COPD 12/03/2013 SALLY BEEF TRIMMER, VALERIE S 599.0 URINARY TRACT INFECTION 12/03/2013 SALLY BEEF TRIMMER, VALERIE S 788.41 URINARY FREQUENCY 12/03/2013 YATES DO, KARO K 496 COPD 12/03/2013 YATES DO, KARO K 599.0 URINARY TRACT INFECTION 12/03/2013 YATES DO, KARO K 788.41 URINARY FREQUENCY 12/03/2013 SALLY BEEF TRIMMER, VALERIE S 496 COPD 12/03/2013 SALLY BEEF TRIMMER, VALERIE S 599.0 URINARY TRACT INFECTION 12/03/2013 SALLY BEEF TRIMMER, VALERIE S 788.41 URINARY FREQUENCY 12/03/2013 YATES DO, KARO K 496 COPD 12/03/2013 YATES DO, KARO K 599.0 URINARY TRACT INFECTION 12/03/2013 YATES DO, KARO K 788.41 URINARY FREQUENCY 12/03/2013 SALLY BEEF TRIMMER, VALERIE S 496 COPD 12/03/2013 SALLY BEEF TRIMMER, VALERIE S 599.0 URINARY TRACT INFECTION 12/03/2013 SALLY BEEF TRIMMER, VALERIE S 788.41 URINARY FREQUENCY 12/03/2013 SALLY BEEF TRIMMER, VALERIE S 496 COPD 12/03/2013 SALLY BEEF TRIMMER, VALERIE S 599.0 URINARY TRACT INFECTION 12/03/2013 SALLY BEEF TRIMMER, VALERIE S 788.41 URINARY FREQUENCY 12/03/2013 SALLY BEEF TRIMMER, VALERIE S 496 COPD 12/03/2013 SALLY BEEF TRIMMER, VALERIE S 599.0 URINARY TRACT INFECTION 12/03/2013 SALLY BEEF TRIMMER, VALERIE S 788.41 URINARY FREQUENCY 12/03/2013 YATES DO, KARO K 496 COPD 12/03/2013 YATES DO, KARO K 599.0 URINARY TRACT INFECTION 12/03/2013 YATES DO, KARO K 788.41 URINARY FREQUENCY 12/03/2013 SALLY BEEF TRIMMER, VALERIE S 496 COPD 12/03/2013 SALLY BEEF TRIMMER, VALERIE S 599.0 URINARY TRACT INFECTION 12/03/2013 SALLY BEEF TRIMMER, VALERIE S 788.41 URINARY FREQUENCY 01/23/2014 YATES DO, KARO K 477.0 ALLERGIC RHINITIS DUE TO POLLEN 01/23/2014 SALLY BEEF TRIMMER, VALERIE S 477.0 ALLERGIC RHINITIS DUE TO POLLEN 01/23/2014 YATES DO, KARO K 477.0 ALLERGIC RHINITIS DUE TO POLLEN 01/23/2014 SALLY BEEF TRIMMER, VALERIE S 477.0 ALLERGIC RHINITIS DUE TO POLLEN 01/23/2014 SALLY BEEF TRIMMER, VALERIE S 477.0 ALLERGIC RHINITIS DUE TO POLLEN 01/23/2014 SALLY BEEF TRIMMER, VALERIE S 477.0 ALLERGIC RHINITIS DUE TO POLLEN 01/23/2014 YATES DO, KARO K 477.0 ALLERGIC RHINITIS DUE TO POLLEN 01/23/2014 SALLY BEEF TRIMMER, VALERIE S 477.0 ALLERGIC RHINITIS DUE TO POLLEN 02/26/2014 MIKE NICHOLSON L Ot 564.00 UNSPEC CONSTIPATION 02/26/2014 MIKE NICHOLSON Ot 788.0 RENAL COLIC 02/26/2014 MIKE NICHOLSON L Ot 789.09 ABDOMINAL PAIN, OTHER SPECIFIED SITE 03/03/2014 SALLY BEEF TRIMMER, VALERIE S 592.0 CALCULUS OF KIDNEY 03/03/2014 YATES DO, KARO K 592.0 CALCULUS OF KIDNEY 03/03/2014 SALLY BEEF TRIMMER, VALERIE S 592.0 CALCULUS OF KIDNEY 03/03/2014 SALLY BEEF TRIMMER, VALERIE S 592.0 CALCULUS OF KIDNEY 03/03/2014 SALLY BEEF TRIMMER, VALERIE S 592.0 CALCULUS OF KIDNEY 03/03/2014 YATES DO, KARO K 592.0 CALCULUS OF KIDNEY 03/03/2014 SALLY BEEF TRIMMER, VALERIE S 592.0 CALCULUS OF KIDNEY 04/07/2014 YATES DO, KARO K 789.01 ABDOMINAL PAIN RIGHT UPPER QUADRANT 04/07/2014 SALLY BEEF TRIMMER, VALERIE S 789.01 ABDOMINAL PAIN RIGHT UPPER QUADRANT 04/07/2014 SALLY BEEF TRIMMER, VALERIE S 789.01 ABDOMINAL PAIN RIGHT UPPER QUADRANT 04/07/2014 SALLY BEEF TRIMMER, VALERIE S 789.01 ABDOMINAL PAIN RIGHT UPPER QUADRANT 04/07/2014 YATES DO, KARO K 789.01 ABDOMINAL PAIN RIGHT UPPER QUADRANT 04/07/2014 SALLY BEEF TRIMMER, VALERIE S 789.01 ABDOMINAL PAIN RIGHT UPPER [...] VALERIE ZAVALA Ot 382.00 10/29/2014 VALERIE ZAVALA CEO Ot 401.1 10/29/2014 VALERIE ZAVALAP Ot 564.1 10/29/2014 VALERIE ZAVALA CEO Ot 719.40 10/29/2014 VALERIE ZAVALA CEO Ot 786.52 10/29/2014 VALERIE ZAVALA CEO Ot V76.12 10/29/2014 SEDRICK DOBSON R BEEF TRIMMER Ot 338.4 10/29/2014 BRONSON SEDRICK R BEEF TRIMMER Ot 401.1 10/29/2014 SEDRICK DOBSON R BEEF TRIMMER Ot 564.1 10/29/2014 SEDRICK DOBSON R BEEF TRIMMER Ot 719.40 10/29/2014 VALERIE ZAVALA CEO Ot 789.01 10/29/2014 BALTAZAR COTTER DO Ot 789.01 10/29/2014 VALERIE ZAVALA CEO Ot 789.09 11/03/2014 DOLORES DPM, SHERI Q [...] DOLORES DPM, SHERI Q Ot V72.81 11/21/2014 DLOORES DPM, SHERI Q Ot V74.8 01/10/2015 TAL [...] ABRAMS, ALBARO P Ot V57.1 01/21/2015 TAL ABRAMS, ALBARO P Ot V57.21 01/21/2015 TAL [...] VALERIE ZAVALAP Ot 380.4 03/31/2015 VALERIE ZAVALA CEO Ot 382.00 03/31/2015 VALERIE ZAVALA CEO Ot 401.1 03/31/2015 VALERIE ZAVALA CEO Ot 564.1 03/31/2015 VALERIE ZAVALA CEO Ot 719.40 03/31/2015 VALERIE ZAVALA CEO Ot 786.52 03/31/2015 VALERIE ZAVALA CEO Ot V76.12 03/31/2015 BRONSON SEDRICK R BEEF TRIMMER Ot 338.4 03/31/2015 BRONSON SEDRICK R BEEF TRIMMER Ot 401.1 03/31/2015 BRONSON SEDRICK R BEEF TRIMMER Ot 564.1 03/31/2015 BRONSON SEDRICK R BEEF TRIMMER Ot 719.40 03/31/2015 VALERIE ZAVALA CEO Ot 789.01 03/31/2015 COTTER BALTAZAR RAMIREZ Ot 789.01 03/31/2015 VALERIE ZAVALA CEO Ot 789.09 03/31/2015 DOLORES DPM, SHERI Q [...] Ot 786.52 PAINFUL RESPIRATION 10/23/2015 SALLY, VALERIE CEO Ot V76.12 OTH SCREEN MAMMO-MALIGN NEOPLASM OF JOSIAH 10/23/2015 SEDRICK DOBSON BEEF TRIMMER Ot 338.4 CHRONIC PAIN SYNDROME 10/23/2015 SEDRICK DOBSON BEEF TRIMMER Ot 401.1 BENIGN HYPERTENSION 10/23/2015 SEDRICK DOBSON BEEF TRIMMER Ot 564.1 IRRITABLE BOWEL SYNDROME 10/23/2015 SEDRICK DOBSON BEEF TRIMMER Ot 719.40 JOINT PAIN-UNSPEC 10/23/2015 VALERIE ZAVALA CEO Ot 789.01 ABDOMINAL PAIN, RIGHT UPPER QUADRANT 10/23/2015 COTTER BALTAZAR RAMIREZ Delia Ot 789.01 ABDOMINAL PAIN, RIGHT UPPER QUADRANT 10/23/2015 VALERIE ZAVALA CEO Ot 789.09 ABDOMINAL PAIN, OTHER SPECIFIED SITE 10/23/2015 DOLORES DPM, SHERI Q Ot 735.0 HALLUX VALGUS 10/23/2015 DOLORES DPM, SHERI Q Ot 735.4 OTHER HAMMER TOE 10/23/2015 DOLORES DPM, SHERI Q Ot V72.81 [id number] CARDIOVASCULAR 10/23/2015 DOLORES DPM, SHERI Q Ot V74.8 SCREEN-BACTERIAL DIS NEC 10/23/2015 TAL ABRAMS, ALBARO Traore Ot 715.36 LOC OSTEOARTH NOS-L/LEG 10/23/2015 TAL ABRAMS, ALBARO Traore Ot 780.79 OTH MALAISE FATIGUE 10/23/2015 ALBARO PARADA MD Ot V57.1 PHYSICAL THERAPY NEC 10/23/2015 TAL ABRAMS, ALBARO Traore Ot V57.21 ENCOUNTER FOR OCCUPATIONAL THERAPY 10/23/2015 ALBARO PARADA MD Ot V72.63 PRE-PROCEDURAL LABORATORY EXAMINATION 10/23/2015 ALBRAO PARADA MD Ot V72.83 EXAM PRE-OPERATIVE NEC [...] LOWER ABDOMINAL PAIN, UNSPECIFIED 2015 SALLYVALERIE FERGUSON CEO Ot R10.11 RIGHT UPPER QUADRANT PAIN 11/12/2015 VALERIE ZAVALA CEO Ot R10.11 RIGHT UPPER QUADRANT PAIN 11/19/2015 VALERIE ZAVALA CEO Ot R10.11 RIGHT UPPER QUADRANT PAIN 05/29/2016 [...] LUMB/ LUMBOSAC DISC DEGEN 06/02/2016 VALERIE ZAVALA CEO Ot 053.9 HERPES ZOSTER NOS 06/02/2016 VALERIE ZAVALA CEO Ot 338.4 CHRONIC PAIN SYNDROME 06/02/2016 VALERIE ZAVALA CEO Ot 380.4 IMPACTED CERUMEN 06/02/2016 VALERIE ZAVALA CEO Ot 382.00 AC SUPP OTITIS MEDIA NOS 06/02/2016 VALERIE ZAVALA CEO Ot 401.1 BENIGN HYPERTENSION 06/02/2016 VALERIE ZAVALAP Ot 564.1 IRRITABLE BOWEL SYNDROME 06/02/2016 VALERIE ZAVALAP Ot 719.40 JOINT PAIN-UNSPEC 06/02/2016 VALERIE ZAVALAP Ot 786.52 PAINFUL RESPIRATION 06/02/2016 VALERIE ZAVALAP Ot V76.12 OTH SCREEN MAMMO-MALIGN NEOPLASM OF JOSIAH 06/02/2016 SEDRICK DOBSON BEEF TRIMMER Ot 338.4 CHRONIC PAIN SYNDROME 06/02/2016 SEDRICK DOBSON BEEF TRIMMER Ot 401.1 BENIGN HYPERTENSION 06/02/2016 SEDRICK DOBSON BEEF TRIMMER Ot 564.1 IRRITABLE BOWEL SYNDROME 06/02/2016 SEDRICK DOBSON BEEF TRIMMER Ot 719.40 JOINT PAIN-UNSPEC 06/02/2016 VALERIE ZAVALA Ot 789.01 ABDOMINAL PAIN, RIGHT UPPER QUADRANT 06/02/2016 BALTAZAR COTTER DO Ot 789.01 ABDOMINAL PAIN, RIGHT UPPER QUADRANT 06/02/2016 VALERIE ZAVALA Ot 789.09 ABDOMINAL PAIN, OTHER SPECIFIED SITE 06/02/2016 DOLORES DPM, SHERI Q Ot 735.0 HALLUX VALGUS 06/02/2016 DOLORES DPM, SHERI Q Ot 735.4 OTHER HAMMER TOE 06/02/2016 DOLORES DPM, SHERI Q Ot V72.81 [id number] CARDIOVASCULAR 06/02/2016 DOLORES DPM, SHERI Q Ot [...] CHRONIC OBSTRUCTIVE PULMONARY DISEASE W 06/03/2016 RAISSA UFENTES MD Ot K29.70 GASTRITIS, UNSPECIFIED, WITHOUT BLEEDING [...] RIGHT ARTIFICIAL KNEE JOINT 06/25/2016 ANDREW KANG CEO Ot I10 ESSENTIAL (PRIMARY) HYPERTENSION 06/25/2016 ANDREW KANGP Ot J44.9 CHRONIC OBSTRUCTIVE PULMONARY DISEASE, U 06/25/2016 PEARL, ANDREW CEO Ot N39.0 URINARY TRACT INFECTION, SITE NOT SPECIF 06/25/2016 PEARL, ANDREW CEO Ot R30.0 DYSURIA 06/28/2016 PEARL ANDREW CEO Ot I10 ESSENTIAL (PRIMARY) HYPERTENSION 06/28/2016 PEARL ANDREW CEO Ot J44.9 CHRONIC OBSTRUCTIVE PULMONARY DISEASE, U 06/28/2016 PEARL, ANDREW CEO Ot N39.0 URINARY TRACT INFECTION, SITE NOT SPECIF 06/28/2016 PEARL ANDREW CEO Ot R30.0 DYSURIA 07/08/2016 BINU JAVIER MD Ot I10 ESSENTIAL (PRIMARY) HYPERTENSION 07/08/2016 BINU JAVIER MD T Ot J44.9 CHRONIC OBSTRUCTIVE PULMONARY DISEASE, U 07/08/2016 BINU JAVIER MD T Ot N32.89 OTHER SPECIFIED DISORDERS OF BLADDER 07/08/2016 BINU JAVIER MD Ot N39.0 URINARY TRACT INFECTION, SITE NOT SPECIF 07/08/2016 BINU JAVIER MD Ot R30.0 DYSURIA 07/08/2016 BINU JAVIER MD Ot Z79.899 OTHER CLINICAL QUALITY ANALYST (CURRENT) DRUG THERAPY 07/11/2016 BINU JAVIER MD Ot I10 ESSENTIAL (PRIMARY) HYPERTENSION 07/11/2016 BINU JAVIER MD Ot J44.9 CHRONIC OBSTRUCTIVE PULMONARY DISEASE, U 07/11/2016 BINU JAVIER MD Ot N32.89 OTHER SPECIFIED DISORDERS OF BLADDER 07/11/2016 BINU JAVIER MD Ot N39.0 URINARY TRACT INFECTION, SITE NOT SPECIF 07/11/2016 BINU JAVIER MD Ot R30.0 DYSURIA 07/11/2016 BINU JAVIER MD T Ot Z79.899 OTHER CLINICAL QUALITY ANALYST (CURRENT) DRUG THERAPY 07/13/2016 BINU JAVIER MD Ot I10 ESSENTIAL (PRIMARY) HYPERTENSION 07/13/2016 IBNU JAVIER MD Ot J44.9 CHRONIC OBSTRUCTIVE PULMONARY DISEASE, U 07/13/2016 BINU JAVIER MD T Ot N32.89 OTHER SPECIFIED DISORDERS OF BLADDER 07/13/2016 BINU JAVIER MD Ot N39.0 URINARY TRACT INFECTION, SITE NOT SPECIF 07/13/2016 BINU JAVIER MD Ot R30.0 DYSURIA 07/13/2016 BINU JAVIER MD T Ot Z79.899 OTHER CLINICAL QUALITY ANALYST (CURRENT) DRUG THERAPY 08/21/2016 LORETO TIPTON DO [...] SAEED DO, LORETO K Ot Z79.899 OTHER SENIOR CARE (CURRENT) DRUG THERAPY 08/23/2016 SAEED DO, LORETO [...] SAEED DO, LORETO K Ot Z79.899 OTHER SENIOR CARE (CURRENT) DRUG THERAPY 09/18/2016 THANH MAO MD [...] WITH VOMITING, UNSPECIFIED 02/09/2017 SEDRICK DOBSON R BEEF TRIMMER Ot R10.31 RIGHT LOWER QUADRANT PAIN 02/28/2017 BRONSON SEDRICK R BEEF TRIMMER Ot R10.31 RIGHT LOWER QUADRANT PAIN 03/10/2017 BRONSON SEDRICK R BEEF TRIMMER Ot R10.31 RIGHT LOWER QUADRANT PAIN 05/17/2017 ADRIAN ZAVALAA CEO Ot N20.0 CALCULUS OF KIDNEY 05/17/2017 ADRIAN ZAVALAA CEO Ot R91.8 OTHER NONSPECIFIC ABNORMAL FINDING OF DAVID 06/02/2017 ADRIAN ZAVALAA CEO Ot R31.9 HEMATURIA, UNSPECIFIED 06/02/2017 ADRIAN ZAVALAA CEO Ot Z87.442 PERSONAL HISTORY OF URINARY CALCULI 06/07/2017 ADRIAN ZAVALAA CEO Ot R31.9 HEMATURIA, UNSPECIFIED 06/07/2017 SALLY, VALERIE CEO Ot Z87.442 PERSONAL HISTORY OF URINARY CALCULI 06/13/2017 ADRIAN ZAVALAA CEO Ot N20.0 CALCULUS OF KIDNEY 06/13/2017 SALLYADRIAN FERGUSONA CEO Ot R91.8 OTHER NONSPECIFIC ABNORMAL FINDING OF DAVID 06/16/2017 ADRIAN ZAVALAA CEO Ot N20.0 CALCULUS OF KIDNEY 06/16/2017 ADRIAN ZAVALAA CEO Ot R91.8 OTHER NONSPECIFIC ABNORMAL FINDING OF DAVID 06/23/2017 ADRIAN ZAVALAA CEO Ot R31.9 HEMATURIA, UNSPECIFIED 06/23/2017 ADRIAN ZAVALAA CEO Ot Z87.442 PERSONAL HISTORY OF URINARY CALCULI 07/21/2017 ADRIAN ZAVALAA CEO Ot R31.9 HEMATURIA, UNSPECIFIED 07/21/2017 ADRIAN ZAVALAA CEO Ot Z87.442 PERSONAL HISTORY OF URINARY CALCULI 08/28/2017 ENRIQUETA ABRAMS, AUDIE Johnson Ot K21.9 GASTRO-ESOPHAGEAL REFLUX DISEASE WITHOUT 08/28/2017 ENRIQUETA BARAMS, AUDIE Johnson Ot R63.4 ABNORMAL WEIGHT LOSS [...] LUMB/ LUMBOSAC DISC DEGEN 09/01/2017 VALERIE ZAVALA CEO Ot 053.9 HERPES ZOSTER NOS 09/01/2017 VALERIE ZAVALA CEO Ot 338.4 CHRONIC PAIN SYNDROME 09/01/2017 VALERIE ZAVALA CEO Ot 380.4 IMPACTED CERUMEN 09/01/2017 VALERIE ZAVALA CEO Ot 382.00 AC SUPP OTITIS MEDIA NOS 09/01/2017 VALERIE ZAVALA CEO Ot 401.1 BENIGN HYPERTENSION 09/01/2017 VALERIE ZAVALA CEO Ot 564.1 IRRITABLE BOWEL SYNDROME 09/01/2017 VALERIE ZAVALA CEO Ot 719.40 JOINT PAIN-UNSPEC 09/01/2017 VALERIE ZAVALA CEO Ot 786.52 PAINFUL RESPIRATION 09/01/2017 VALERIE ZAVALA CEO Ot V76.12 OTH SCREEN MAMMO-MALIGN NEOPLASM OF J[place]IAH 09/01/2017 SEDRICK DOBSON BEEF TRIMMER Ot 338.4 CHRONIC PAIN SYNDROME 09/01/2017 SEDRICK DOBSON BEEF TRIMMER Ot 401.1 BENIGN HYPERTENSION 09/01/2017 SEDRICK DOBSON BEEF TRIMMER Ot 564.1 IRRITABLE BOWEL SYNDROME 09/01/2017 SEDRICK DOBSON BEEF TRIMMER Ot 719.40 JOINT PAIN-UNSPEC 09/01/2017 VALERIE ZAVALA CEO Ot 789.01 ABDOMINAL PAIN, RIGHT UPPER QUADRANT 09/01/2017 BALTAZAR COTTER DO Ot 789.01 ABDOMINAL PAIN, RIGHT UPPER QUADRANT 09/01/2017 VALERIE ZAVALAP Ot 789.09 ABDOMINAL PAIN, OTHER SPECIFIED SITE 09/01/2017 DOLORES DPM, SHERI Q Ot 735.0 HALLUX VALGUS 09/01/2017 DOLORES DPM, SHERI Q Ot 735.4 OTHER HAMMER TOE 09/01/2017 DOLORES DPM, SHERI Q Ot V72.81 [id number] CARDIOVASCULAR 09/01/2017 DOLORES DPM, SHERI Q Ot [...] Ot R10.11 RIGHT UPPER QUADRANT PAIN 09/01/2017 ENRIUQETA ABRAMS, AUDIE Johnson Ot K21.9 GASTRO-ESOPHAGEAL REFLUX DISEASE WITHOUT 09/01/2017 ENRIQUETA ABRAMS, AUDIE Johnson Ot R63.4 ABNORMAL WEIGHT LOSS 09/01/2017 ENRIQUETA ABRAMS, AUDIE Johnson Ot Z01.818 ENCOUNTER FOR OTHER PREPROCEDURAL EXAMIN 09/01/2017 SEDRICK DOBSON BEEF TRIMMER Ot R10.31 RIGHT LOWER QUADRANT PAIN 09/01/2017 VALERIE ZAVALAP Ot N20.0 CALCULUS OF KIDNEY 09/01/2017 VALERIE ZAVALA Ot R91.8 OTHER NONSPECIFIC ABNORMAL FINDING OF DAVID 09/01/2017 VALERIE ZAVALAP Ot R31.9 HEMATURIA, UNSPECIFIED 09/01/2017 VALERIE ZAVALAP Ot Z87.442 PERSONAL HISTORY OF URINARY CALCULI 09/21/2017 SALLY, VALERIE CEO Ot Z12.31 ENCNTR SCREEN MAMMOGRAM FOR MALIGNANT NE 09/22/2017 SALLYSERINAVALERIE CEO Ot Z12.31 ENCNTR SCREEN MAMMOGRAM FOR MALIGNANT [...] AN 10/05/2017 CYDNEY ANDERSON APRN Ot Z79.51 SENIOR CARE (CURRENT) USE OF INHALED STERO 10/05/2017 CYDNEY ANDERSON APRN Ot Z82.49 FAMILY HX OF ISCHEM HEART DIS AND OTH DI 10/05/2017 CYDNYE ANDERSON APRN Ot Z87.19 PERSONAL HISTORY OF [...] Z90.89 ACQUIRED ABSENCE OF OTHER ORGANS 10/11/2017 VALERIE ZAVALAP Ot Z12.31 ENCNTR SCREEN MAMMOGRAM FOR MALIGNANT NE 11/27/2017 BRII ABRAMS, DEB Fuller Ot F32.9 MAJOR DEPRESSIVE DISORDER, SINGLE EPISOD 11/27/2017 BRII ABRAMS, DEB Fuller Ot F41.9 ANXIETY DISORDER, UNSPECIFIED 11/27/2017 BRII ABRAMS, DEB Fuller Ot F43.10 POST-TRAUMATIC STRESS DISORDER, UNSPECIF 11/27/2017 BRII ABRAMS, DEB Fuller Ot G43.909 MIGRAINE, UNSP, NOT INTRACTABLE, WITHOUT 11/27/2017 BRII ABRAMS, DEB Fuller Ot I10 ESSENTIAL (PRIMARY) HYPERTENSION 11/27/2017 BRII ABRAMS, DEB Fuller Ot K21.9 GASTRO-ESOPHAGEAL REFLUX DISEASE WITHOUT 11/27/2017 BRII ABRAMS, DEB Fuller Ot M81.0 AGE-RELATED OSTEOPOROSIS W/O CURRENT PAT 11/27/2017 BRII ABRAMS, DEB Fuller Ot R10.2 PELVIC AND PERINEAL PAIN 11/27/2017 BRII ABRAMS, DEB Fuller Ot R10.9 UNSPECIFIED ABDOMINAL PAIN 11/27/2017 BRII ABRAMS, DEB Fuller Ot Z77.22 CNTCT W AND EXPSR TO ENVIRON TOBACCO SMO 11/27/2017 BRII ABRAMS, DEB Fuller Ot Z87.19 PERSONAL HISTORY OF OTHER DISEASES OF TH 11/27/2017 BRII ABRAMS, DEB Fuller Ot Z87.442 PERSONAL HISTORY OF URINARY CALCULI 11/27/2017 BRII ABRAMS, DEB Fuller Ot Z87.59 PERSONAL HISTORY OF COMP OF PREG, CHLDBR 11/27/2017 BRII ABRAMS, DEB Fuller Ot Z88.2 ALLERGY STATUS TO SULFONAMIDES STATUS 11/27/2017 BRII ABRAMS, DEB Fuller Ot Z88.6 ALLERGY STATUS TO ANALGESIC AGENT STATUS 11/27/2017 BRII ABRAMS, DEB Fuller Ot Z88.8 ALLERGY STATUS TO OTH DRUG/MEDS/BIOL SUB 11/27/2017 BRII ABRAMS, DEB Fuller Ot Z90.710 ACQUIRED ABSENCE OF BOTH CERVIX AND UTER 11/27/2017 BRII ABRAMS, DEB Fuller Ot Z90.89 ACQUIRED ABSENCE OF OTHER ORGANS 11/29/2017 BRII ABRAMS, DEB Fuller Ot F32.9 MAJOR DEPRESSIVE DISORDER, SINGLE EPISOD 11/29/2017 BRII ABRAMS, DEB Fuller Ot F41.9 ANXIETY DISORDER, UNSPECIFIED 11/29/2017 BRII ABRAMS, DEB Fuller Ot F43.10 POST-TRAUMATIC STRESS DISORDER, UNSPECIF 11/29/2017 BRII ABRAMS, DEB Fuller Ot G43.909 MIGRAINE, UNSP, NOT INTRACTABLE, WITHOUT 11/29/2017 BRII ABRAMS, DEB Fuller Ot I10 ESSENTIAL (PRIMARY) HYPERTENSION 11/29/2017 BRII ABRAMS, DEB Fuller Ot K21.9 GASTRO-ESOPHAGEAL REFLUX DISEASE WITHOUT 11/29/2017 BRII ABRAMS, DEB Fuller Ot M81.0 AGE-RELATED OSTEOPOROSIS W/O CURRENT PAT 11/29/2017 BRII ABRAMS, DEB Fuller Ot R10.2 PELVIC AND PERINEAL PAIN 11/29/2017 BRII ABRAMS, DEB Fuller Ot R10.9 UNSPECIFIED ABDOMINAL PAIN 11/29/2017 BRII ABRAMS, DEB Fuller Ot Z77.22 CNTCT W AND EXPSR TO ENVIRON TOBACCO SMO 11/29/2017 BRII ABRAMS, DEB Fuller Ot Z87.19 PERSONAL HISTORY OF OTHER DISEASES OF TH 11/29/2017 BRII ABRAMS, DEB Fuller Ot Z87.442 PERSONAL HISTORY OF URINARY CALCULI 11/29/2017 BRII ABRAMS, DEB Fuller Ot Z87.59 PERSONAL HISTORY OF COMP OF PREG, CHLDBR 11/29/2017 BRII ABRAMS, DEB Fuller Ot Z88.2 ALLERGY STATUS TO SULFONAMIDES STATUS 11/29/2017 BRII ABRAMS, DEB Fuller Ot Z88.6 ALLERGY STATUS TO ANALGESIC AGENT STATUS 11/29/2017 BRII ABRAMS, DEB Fuller Ot Z88.8 ALLERGY STATUS TO OTH DRUG/MEDS/BIOL SUB 11/29/2017 BRII ABRAMS, DEB Fuller Ot Z90.710 ACQUIRED ABSENCE OF BOTH CERVIX AND UTER 11/29/2017 BRII ABRAMS, DEB Fuller Ot Z90.89 ACQUIRED ABSENCE OF OTHER ORGANS 11/29/2017 BRII ABRAMS, DEB Fuller Ot F32.9 MAJOR DEPRESSIVE DISORDER, SINGLE EPISOD 11/29/2017 BRII ABRAMS, DEB Fuller Ot F41.9 ANXIETY DISORDER, UNSPECIFIED 11/29/2017 BRII ABRAMS, DEB Fuller Ot F43.10 POST-TRAUMATIC STRESS DISORDER, UNSPECIF 11/29/2017 BRII ABRAMS, DEB Fuller Ot G43.909 MIGRAINE, UNSP, NOT INTRACTABLE, WITHOUT 11/29/2017 DEB TERESA MD Ot I10 ESSENTIAL (PRIMARY) HYPERTENSION 11/29/2017 DEB TERESA MD Ot K21.9 GASTRO-ESOPHAGEAL REFLUX DISEASE WITHOUT 11/29/2017 BRII ABRAMS, DEB Fuller Ot M81.0 AGE-RELATED OSTEOPOROSIS W/O CURRENT PAT 11/29/2017 DEB TERESA MD Ot R10.2 PELVIC AND PERINEAL PAIN 11/29/2017 DEB TERESA MD Ot R10.9 UNSPECIFIED ABDOMINAL PAIN 11/29/2017 DEB TERESA MD Ot Z77.22 CNTCT W AND EXPSR TO ENVIRON TOBACCO SMO 11/29/2017 DEB TERESA MD Ot Z87.19 PERSONAL HISTORY OF OTHER DISEASES OF TH 11/29/2017 DEB TERESA MD Ot Z87.442 PERSONAL HISTORY OF URINARY CALCULI 11/29/2017 DEB TERESA MD Ot Z87.59 PERSONAL HISTORY OF COMP OF PREG, CHLDBR 11/29/2017 BRII ABRAMS, DEB Fuller Ot Z88.2 ALLERGY STATUS TO SULFONAMIDES STATUS 11/29/2017 DEB TERESA MD Ot Z88.6 ALLERGY STATUS TO ANALGESIC AGENT STATUS 11/29/2017 DEB TERESA MD Ot Z88.8 ALLERGY STATUS TO OTH DRUG/MEDS/BIOL SUB 11/29/2017 DEB TERESA MD Ot Z90.710 ACQUIRED ABSENCE OF BOTH CERVIX AND UTER 11/29/2017 DEB TERESA MD Ot Z90.89 ACQUIRED ABSENCE OF OTHER ORGANS Procedures Code Description [place] [address] XRAY FOOT LEFT 2 VIEWS 03/16/201284614 INJ TENDON SHEATH/LIGAMENT 06/29/2012 33598 XRAY FOOT RIGHT 2 VIEWS 06/29/2012 75170 XRAY FOOT LEFT 2 VIEWS 06/29/2012 15588 MRI SPINE (LUMBAR) W/O CONTRAST 07/05/2012 13319 CULTURE URINE 08/01/2012 10913 ROUTINE VENIPUNCTURE 02/04/2013 24372 URINE DRUG SCREEN (IN-HOUSE ) 02/04/2013 58610 CBC 02/04/2013 17020 CMP 02/04/2013 66489 URIC ACID 02/04/2013 32104 LIPID PANEL 02/04/2013 8254519 GFR CALC (RESULT ONLY) 02/04/2013 98767 CRP 02/04/2013 11686 ESR/SED RATE 02/04/2013 11966 ASO 02/05/2013 72690 RA FACTOR 02/05/2013 ANAANA PEMA ANALYZER (SCREEN) 02/05/2013 G0008 FLU ADMINISTRATION ( MEDICARE ONLY) 02/17/2013 04874 XRAY CHEST 2 VIEW 04/10/2013 13601 MAMMOGRAM, SCREENING 05/07/2013 63246 URINE DRUG SCREEN (IN-HOUSE ) 06/04/2013 81540 US RENAL ARTERY DOPPLER 09/12/2013 83296 XRAY S-C JOINTS 2 OR MORE VIEWS 10/17/2013 40483 XRAY PELVIS 1 OR 2 VIEWS 10/17/2013 Physical Physical Therapy, [facility] 10/17/2013 98861 ROUTINE VENIPUNCTURE 02/18/2014 9376184 GFR CALC (RESULT ONLY) 02/18/2014 15573 CMP 02/18/2014 81020 LIPID PANEL 02/18/2014 Urology Frank Cole 03/03/2014 23428 UA W/ CULTURE IF INDICATED 04/07/2014 64934 US GALLBLADDER ULTRASOUND 04/07/2014 83411 HIDA SCAN 04/07/2014 General S Baltazar Cotter 04/29/2014 18620 UA LONG DIP 05/31/2014 08064 ROUTINE VENIPUNCTURE 06/04/2014 9529499 GFR CALC (RESULT ONLY) 06/04/2014 20477 CMP 06/04/2014 23316 CBC 06/04/2014 59835 CELIAC DISEASE ANALYZER 06/06/2014 54827 N-METHYLHISTAMINE, 24HR URINE 06/19/2014 39905 XRAY KNEE RIGHT 3 VIEWS 08/25/2014 Albaro [...] culture - 05/29/16 16:50 Bacterial blood culture [facility] Bacterial blood culture - 05/29/16 17:02 Bacterial blood culture [facility] Complete blood count (CBC) with automated white [...] culture - 06/02/16 17:06 Bacterial urine culture [id number] NRG COLONY COUNT >100,000/ML NR FTX;REPORTABLE SENSITIVITY REPORTED 06/03 16:25 [facility] Bacterial susceptibility panel - 06/02/16 17:06 Gentamicin [...] susceptibility test by minimum inhibitory concentration - [facility] Urine osmolality - 06/02/16 17:06 Urine osmolality [...] culture - 06/25/16 13:40 Bacterial urine culture [id number] NRG COLONY COUNT 10,000/ML - 100,000/ML NRG FTX;REPORTABLE SENSITIVITIES REPORTED AT 0849, 06-27-16 NR URINE CULTURE RESULTS PLUS [facility] Bacterial susceptibility panel - 06/25/16 13:40 Gentamicin [...] susceptibility test by minimum inhibitory concentration - [facility] Bacterial susceptibility panel - 06/25/16 13:40 Gentamicin [...] culture - 07/08/16 16:35 Bacterial urine culture [id number] NRG COLONY COUNT >100,000/ML NRG FTX;REPORTABLE SENSITIVITY REPORTED 07/10 07:55 NR Bacterial susceptibility panel - 07/08/16 16:35 Gentamicin [...] test by minimum inhibitory concentration - NRG Blood lactic acid measurement (moles/volume) - 08/21/16 [...] culture - 08/21/16 18:45 Bacterial urine culture [id number] NRG COLONY COUNT >100,000/ML NRG FTX;REPORTABLE SENSITIVITY REPORTED AT 1651, 08-22-16 NRG Bacterial susceptibility panel - 08/21/16 18:45 Gentamicin [...] 10/30/17 17:47 COLOR TNP NRG COMMENTS NRG CRP - 11/27/17 13:16 C-REACTIVE PROTEIN 1.2 mg/L <8.0 CULTURE, URINE - 11/27/17 13:16 CULTURE, URINE, ROUTINE SEE NOTE NRG Complete urinalysis with reflex to culture - 11/27/17 15:37 Urine color determination YELLOW NRG Urine clarity determination CLEAR NRG Urine pH measurement by test strip 5 5-9 Specific gravity of urine by test strip 1.015 1.016- 1.022 Urine protein assay by test strip, semi-quantitative 2+ NEGATIVE Urine glucose detection by automated test strip NEGATIVE NEGATIVE Erythrocytes detection in urine sediment by light microscopy 1+ NEGATIVE Urine ketones detection by automated test strip 1+ NEGATIVE Urine nitrite detection by test strip NEGATIVE NEGATIVE Urine total bilirubin detection by test strip NEGATIVE NEGATIVE Urine urobilinogen measurement by automated test strip (mass/volume) NORMAL NORMAL Urine leukocyte esterase detection by dipstick 1+ NEGATIVE Automated urine sediment erythrocyte count by microscopy (number/high power field) RARE NRG Automated urine sediment leukocyte count by microscopy (number/high power field ) [HPF] NRG Bacteria detection in urine sediment by light microscopy NEGATIVE NRG Squamous epithelial cells detection in urine sediment by light microscopy NONE NRG Crystals detection in urine sediment by light microscopy NONE NRG Casts detection in urine sediment by light microscopy NONE NRG Mucus detection in urine sediment by light microscopy NEGATIVE NRG Complete urinalysis with reflex to culture NO NRG Complete blood count (CBC) with automated white blood cell (WBC) differential - 11/27/17 15:54 Blood leukocytes automated count (number/volume) 5.2 10*3/uL 4.3-11.0 Blood erythrocytes automated count (number/volume) 3.91 10*6/uL 4.35-5.85 Venous blood hemoglobin measurement (mass/volume) 13.8 g/dL 11.5-16.0 Blood hematocrit (volume fraction) 41 % 35-52 Automated erythrocyte mean corpuscular volume 105 [foz_us] 80-99 Automated erythrocyte mean corpuscular hemoglobin (mass per erythrocyte) 35 pg 25-34 Automated erythrocyte mean corpuscular hemoglobin concentration measurement ( mass/volume) 34 g/dL 32-36 Automated erythrocyte distribution width ratio 13.5 % 10.0-14.5 Automated blood platelet count (count/volume) 264 10*3/uL 130-400 Automated blood platelet mean volume measurement 9.7 [foz_us] 7.4-10.4 Automated blood neutrophils/100 leukocytes 56 % 42-75 Automated blood lymphocytes/100 leukocytes 31 % 12-44 Blood monocytes/100 leukocytes 11 % 0-12 Automated blood eosinophils/100 leukocytes 1 % 0-10 Automated blood basophils/100 leukocytes 1 % 0-10 Blood neutrophils automated count (number/volume) 2.9 10*3 1.8-7.8 Blood lymphocytes automated count (number/volume) 1.6 10*3 1.0-4.0 Blood monocytes automated count (number/volume) 0.6 10*3 0.0-1.0 Automated eosinophil count 0.1 10*3/uL 0.0-0.3 Automated blood basophil count (count/volume) 0.0 10*3/uL 0.0-0.1 Comprehensive metabolic panel - 11/27/17 15:54 Serum or plasma sodium measurement (moles/volume) 131 mmol/L 135-145 Serum or plasma potassium measurement (moles/volume) 3.6 mmol/L 3.6-5.0 Serum or plasma chloride measurement (moles/volume) 97 mmol/L 98-107 Carbon dioxide 23 mmol/L 21-32 Serum or plasma anion gap determination (moles/volume) 11 mmol/L 5-14 Serum or plasma urea nitrogen measurement (mass/volume) 13 mg/dL 7-18 Serum or plasma creatinine measurement (mass/volume) 0.96 mg/dL 0.60-1.30 Serum or plasma urea nitrogen/creatinine mass ratio 14 NRG Serum or plasma creatinine measurement with calculation of estimated glomerular filtration rate 58 NRG Serum or plasma glucose measurement (mass/volume) 105 mg/dL 70-105 Serum or plasma calcium measurement (mass/volume) 9.8 mg/dL 8.5-10.1 Serum or plasma total bilirubin measurement (mass/volume) 0.4 mg/dL 0.1-1.0 Serum or plasma alkaline phosphatase measurement (enzymatic activity/volume) 85 U/L 40-136 Serum or plasma aspartate aminotransferase measurement (enzymatic activity/ volume) 37 U/L 5-34 Serum or plasma alanine aminotransferase measurement (enzymatic activity/volume ) 33 U/L 0-55 Serum or plasma protein measurement (mass/volume) 7.7 g/dL 6.4-8.2 Serum or plasma albumin measurement (mass/volume) 4.3 g/dL 3.2-4.5 Encounters ACCT No. Visit Date/Time Discharge Status Pt. Type Provider Facility Loc./Unit Complaint [id number] 08/25/2014 15:28:00 08/25/2014 23:59:59 [facility] Outpatient VALERIE ZAVALA APRN [id number] 07/14/2014 09:55:00 07/14/2014 23:59:59 [facility] Outpatient KARO YATES DO [id number] 05/31/2014 09:29:00 05/31/2014 23:59:59 [facility] Outpatient VALERIE ZAVALA APRN [id number] 05/31/2014 09:29:00 05/31/2014 23:59:59 [facility] Outpatient VALERIE ZAVALA APRN [id number] 04/07/2014 12:21:00 04/07/2014 23:59:59 [facility] Outpatient VALERIE ZAVALA APRN [id number] 04/07/2014 12:21:00 04/07/2014 23:59:59 [facility] Outpatient KARO YATES DO [id number] 02/18/2014 13:43:00 02/18/2014 23:59:59 CLS Outpatient SALLY BEEF TRIMMERSERINAVALERIE S [id number] 01/23/2014 17:27:00 01/23/2014 23:59:59 [facility] Outpatient MILAN RAMIREZ KARO Gonsalez [id number] 12/03/2013 09:16:00 12/03/2013 23:59:59 [facility] Outpatient SALLY BEEF TRIMMERSERINAVALERIE S [id number] 12/03/2013 09:16:00 12/03/2013 23:59:59 C[facility] Outpatient SALLY BEEF TRIMMER, VALERIE S [id number] 10/17/2013 13:45:00 10/17/2013 23:59:59 C[facility] Outpatient SALLY BEEF TRIMMERSERINAVALERIE S [id number] 09/09/2013 10:47:00 09/09/2013 23:59:59 [facility] Outpatient SALLY BEEF TRIMMERSERINAVALERIE S [id number] 06/04/2013 10:50:00 06/04/2013 23:59:59 CLS Outpatient SALLY BEEF TRIMMERSERINAVALERIE S [id number] 06/04/2013 10:50:00 06/04/2013 23:59:59 CLS Outpatient SALLY BEEF TRIMMERSERINAVALERIE S [id number] 05/07/2013 11:28:00 05/07/2013 23:59:59 [facility] Outpatient SALLY BEEF TRIMMERSERINAVALERIE S [id number] 04/10/2013 16:12:00 04/10/2013 23:59:59 [facility] Outpatient SALLY BEEF TRIMMERSERINAVALERIE S [id number] 04/10/2013 16:12:00 04/10/2013 23:59:59 [facility] Outpatient YATES KARO [id number] 04/06/2013 11:17:00 04/06/2013 23:59:59 C[facility] Outpatient MILAN DOKARO [id number] 04/02/2013 10:20:00 04/02/2013 23:59:59 CLS Outpatient SALLY BEEF TRIMMERSERINAVALERIE S [id number] 02/04/2013 11:19:00 02/04/2013 23:59:59 CLS Outpatient MICHELLE CAMARGO MD [id number] 02/04/2013 11:19:00 02/04/2013 23:59:59 CLS Outpatient SALLY BEEF TRIMMERADRIANAudra Fuller [id number] 08/10/2012 09:19:00 08/10/2012 23:59:59 [facility] Outpatient KARO YATES DO [place] [id number] 07/30/2012 08:25:00 07/30/2012 23:59:59 [facility] Outpatient SALLY BEEF TRIMMERVALERIE Jonny [id number] 07/04/2012 13:20:00 07/04/2012 23:59:59 CLS Outpatient SALLY BEEF TRIMMERSERINAVALERIE Jonny [id number] 06/29/2012 08:10:00 06/29/2012 23:59:59 CLS Outpatient HALEY YATES DOAudra Gonsalez [id number] 06/13/2012 14:07:00 06/13/2012 23:59:59 CLS Outpatient SALLY BEEF TRIMMERSERINAVALERIE S [id number] 06/05/2012 11:37:00 06/05/2012 23:59:59 CLS Outpatient [id number] 05/29/2012 16:36:00 05/29/2012 23:59:59 CLS Outpatient ESPAÑA BEEF TRIMMER ZORAIDA Kelley [id number] 03/30/2012 09:50:00 03/30/2012 23:59:59 CLS Outpatient AKRO YATES DO [place] [id number] 02/14/2012 13:28:00 02/14/2012 23:59:59 C[facility] Outpatient KARO YATES DO [place] [id number] 11/13/2012 14:22:00 Document Registration [id number] 11/13/2012 14:22:00 Document Registration [id number] 09/21/2012 09:46:00 Document Registration [id number] 01/02/2015 04:06:53 ACT Document Registration [id number] 11/27/2017 15:12:00 11/27/2017 17:52:00 DIS Emergency DEB TERESA MD [facility] ER HIGH BP;UTI [id number] 10/05/2017 15:40:00 10/05/2017 16:50:00 DIS Emergency CYDNEY ANDERSON APRN [facility] ER FALL;R KNEE [id number] 09/21/2017 13:41:00 09/21/2017 23:59:59 [facility] Outpatient VALERIE ZAVALA [facility] RAD Z12.31 SCREENING MAMMO [id number] 09/04/2017 08:30:00 09/04/2017 23:59:59 CLS Preadmit ENRIQUETA ABRAMS, AUDIE Johnson [facility] ENDO GERD/WT LOSS [id number] 08/28/2017 05:38:00 08/28/2017 09:34:00 DIS Outpatient AUDIE ROBISON MD [facility] PREOP EGD [id number] 06/01/2017 14:47:00 06/01/2017 23:59:59 CLS Outpatient VALERIE ZAVAALP [facility] RAD R31.9 HEMATURIA [id number] 05/16/2017 11:28:00 05/16/2017 23:59:59 CLS Outpatient VALERIE ZAVALA CEO [facility] RAD R10.31 RIGHT LOWER QUADRANT ABDOMINAL PAIN [id number] 02/08/2017 14:15:00 02/08/2017 23:59:59 CLS Outpatient SEDRICK DOBSON APRN [facility] LAB R10.31 [id number] 09/18/2016 11:44:00 09/18/2016 15:05:00 DIS Emergency MAYCO ABRAMS, THANH June [facility] ER ABD PAIN [id number] 08/21/2016 17:56:00 08/21/2016 20:28:00 DIS Emergency LORETO TIPTON DO [facility] ER UTI SYMPTOMS [id number] 07/08/2016 15:53:00 07/08/2016 17:45:00 DIS Emergency BINU JAVIER MD [facility] ER UTI SX [id number] 06/25/2016 13:23:00 06/25/2016 14:34:00 DIS Emergency ANDREW KANG [facility] ER UTI SYMPTOMS [id number] 06/23/2016 05:59:00 06/23/2016 23:59:59 CLS Outpatient AUDIE ROBISON MD [facility] PREOP GERD [id number] 06/02/2016 01:23:00 06/03/2016 12:15:00 DIS Inpatient RAISSA FUENTES MD [facility] ICU COPD EXACERBATION [id number] 05/29/2016 15:59:00 05/29/2016 18:15:00 DIS Emergency CYDENY ANDERSON APRN [facility] ER COUGH/DIFF BREATHING/ WEAKNESS [id number] 10/23/2015 08:47:00 10/23/2015 23:59:59 CLS Outpatient VALERIE ZAVALA [facility] RAD RUQ ABD PAIN [id number] 10/23/2015 13:52:00 10/23/2015 16:58:00 DIS Emergency MIKAELA MIN MD [facility] ER ABD PAIN [id number] 08/12/2015 13:46:00 08/12/2015 23:59:59 CLS Preadmit VALERIE ZAVALA [facility] REHAB [id number] 03/31/2015 12:24:00 03/31/2015 23:59:59 CLS Outpatient ALBARO PARADA MD [facility] RAD LUMBAR RADICULOPATHY [id number] 01/07/2015 06:00:00 01/10/2015 11:06:00 DIS Inpatient ALBARO PARADA MD [facility] SURGICAL RIGHT KNEE SEVERE OSTEOARTHRITIS [id number] 01/01/2015 09:52:00 01/01/2015 23:59:59 CLS Outpatient ALBARO PARADA MD [facility] PREOP RIGHT KNEE SEVERE OSTEOARTHRITIS [id number] 11/03/2014 07:51:00 11/03/2014 16:15:00 DIS Outpatient DOLORES DPM, SHERI Q [facility] SDC HAMMER TOE LT GREAT TOE [id number] 10/29/2014 10:29:00 10/29/2014 23:59:59 CLS Outpatient DOLORES DPM, SHERI Q [facility] PREOP HAMMERTOE LEFT FOOT [id number] 06/11/2014 09:17:00 06/11/2014 23:59:59 CLS Outpatient VALERIE ZAVALA [facility] RAD RIGHT FLANK PAIN FOR 3 MONTHS [id number] 05/23/2014 08:31:00 05/23/2014 23:59:59 CLS Outpatient BALTAZAR COTTER DO D [facility] CARD RUQ PAIN [id number] 04/22/2014 09:15:00 04/22/2014 23:59:59 CLS Outpatient SALLY VALERIE FULLER [facility] RAD MID EPIGASTRIC PAIN, RADIATING TO RT [id number] 02/26/2014 14:09:00 02/26/2014 16:55:00 DIS Emergency MIKE NICHOLSON [facility] ER RIGHT FLANK PAIN [id number] 10/23/2013 08:33:00 10/23/2013 23:59:59 CLS Outpatient SEDRICK DOBSON APRN [facility] RAD UNCONTROLLED BP [id number] 09/20/2013 13:33:00 09/20/2013 23:59:59 CLS Outpatient VALERIE ZAVALA [facility] RAD UNCONTROLLED BLOOD PRESSURE [id number] 10/29/2014 10:48:00 Document Registration [id number] 10/29/2014 10:48:00 Document Registration [id number] 10/29/2014 10:48:00 Document Registration [id number] 10/29/2014 10:42:00 Document Registration [id number] 06/28/2012 15:25:00 Document Registration [id number] 06/25/2012 10:52:00 Document Registration [id number] 02/20/2012 05:51:00 Document Registration [id number] 02/14/2012 11:58:00 Document Registration [id number] 12/05/2011 11:16:00 Document Registration [id number] 10/03/2011 13:46:00 Document Registration [id number] 09/18/2011 15:35:00 Document Registration [id number] 07/10/2011 13:03:00 Document Registration [id number] 07/06/2011 18:15:00 Document Registration [id number] 06/16/2011 08:58:00 Document Registration [id number] 04/26/2011 05:37:00 Document Registration [id number] 04/20/2011 09:35:00 Document Registration [id number] 02/27/2011 19:11:00 Document Registration [id number] 01/31/2011 14:13:00 Document Registration [id number] 11/07/2010 19:22:00 Document Registration [id number] 10/11/2010 14:04:00 Document Registration [id number] 09/06/2010 17:52:00 Document Registration [id number] 08/23/2010 11:02:00 Document Registration [id number] 08/18/2010 06:59:00 Document Registration [id number] 05/20/2010 10:20:00 Document Registration [id number] 10/30/2009 09:41:00 Document Registration [id number] 05/03/2016 08:06:00 Document Registration [id number] 11/28/2017 15:00:00 11/28/2017 23:59:59 CLS Outpatient VALERIE ZAVALA APRN [facility] [id number] 11/27/2017 11:40:00 Document Registration [id number] 10/30/2017 16:40:00 Document Registration [id number] 09/20/2017 13:40:00 Document Registration [id number] 05/03/2017 11:20:00 Document Registration [id number] 04/19/2017 10:40:00 Document Registration [id number] 03/23/2017 12:20:00 Document Registration
[2017-12-20] MEDS ORDERED: KETOROLAC 30 MG/ML VIAL IVP STA (14:01)
[2017-12-20 14:27] LABS: PROTHROMBIN TIME PATIENT 13.2 SEC (12.2-14.7)
[2017-12-20] MEDS ORDERED: PANT40TA3 PO (14:38)
[2017-12-20 14:39] LABS: BACTERIA,URINE TRACE /HPF; BILIRUBIN,URINE 2+ (NEGATIVE); WBC,URINE TNTC /HPF
[2017-12-20] MEDS ORDERED: SODI30SP2 NS (14:48)
[2017-12-20] MEDS ORDERED: LANS15CA PO (14:48)
[2017-12-20] MEDS ORDERED: ACET1TAB43 PO (14:48)
[2017-12-20] MEDS ORDERED: METO-370 PO (14:48)
[2017-12-20] MEDS ORDERED: AMLO5TAB2 PO (14:48)
[2017-12-20] MEDS ORDERED: NITR100C10 PO (14:48)
[2017-12-20 15:09] LABS: AMPHETAMINE SCREEN, URINE NEGATIVE (NEGATIVE); BARBITURATE SCREEN URINE NEGATIVE (NEGATIVE); BENZODIAZEPINES SCREEN URINE POSITIVE (NEGATIVE); CANNABINOID SCREEN, URINE NEGATIVE (NEGATIVE); COCAINE SCREEN URINE NEGATIVE (NEGATIVE); METHADONE STAT NEGATIVE (NEGATIVE); METHAMPHETAMINE SCREEN URINE S POSITIVE (NEGATIVE); OPIATE SCREEN URINE POSITIVE (NEGATIVE); OXYCODONE STAT NEGATIVE (NEGATIVE); PROPOXYPHENE STAT NEGATIVE (NEGATIVE); TRICYCLIC ANTIDEPRESSANTS SCRE NEGATIVE (NEGATIVE)
[2017-12-20] MEDS ORDERED: cefTRIAXone INJECTION 1,000 MG in NS (IVPB) 50 ML IV ONE (15:30)
--- OUTSIDE RECORDS SUMMARY | 2017-12-20 17:06 | XMS REPORT | Continuity of Care Document ---
Author Author [facility] Address Unknown Phone Unavailable Allergies Active Description Code Type Severity Reaction Onset Reported/Identified Relationship to Patient Clinical Status Yes fear of needles-will pass out OA N/A N/A 08/14/2008 Yes fear of needles-will pass out OA 08/14/2008 Yes hydrochlorothiazide Drug Allergy N/A N/A 01/27/2009 Yes hydrochlorothiazide Drug Allergy 01/27/2009 Yes sulfa drug Drug Allergy 06/23/2010 Yes acetaminophen [id number] Drug Allergy Unknown NAUSEA 10/29/2014 Yes hydrocodone [id number] Drug Allergy Unknown NAUSEA 10/29/2014 Yes fentanyl [id number] Drug Allergy Unknown N/A 01/01/2015 Yes acetaminophen [id number] Drug Allergy Unknown N/A 05/29/2016 Yes adhesive [id number] Drug Allergy Unknown N/A 05/29/2016 Yes hydrocodone [id number] Drug Allergy Unknown N/A 05/29/2016 Yes meperidine [id number] Drug Allergy Unknown HALLUCINATIONS 05/29/2016 Yes Sulfa (Sulfonamide Antibiotics) [id number] Drug Allergy Unknown N/A 2016 Yes pregabalin [id number] Drug Allergy Unknown N/A 07/10/2016 Medications There [...] Urine 08/14/2008 789.00 Abdominal Pain 08/14/2008 SALLY FLANGER, VALERIE S 599.70 Blood In Urine 08/14/2008 SALLY FLANGER, VALERIE S 789.00 Abdominal Pain 08/14/2008 YATES DO, KARO K 599.70 Blood In Urine 08/14/2008 YATES DO, KARO K 789.00 Abdominal Pain 08/14/2008 SALLY FLANGER, VALERIE S 599.70 Blood In Urine 08/14/2008 SALLY FLANGER, VALERIE S 789.00 Abdominal Pain 08/14/2008 SALLY FLANGER, VALERIE S 599.70 Blood In Urine 08/14/2008 SALLY FLANGER, VALERIE S 789.00 Abdominal Pain 08/14/2008 YATES [...] S 599.70 Blood In Urine 08/14/2008 SALLY FLANGER, VALERIE S 789.00 Abdominal Pain 08/14/2008 YATES DO, KARO K 599.70 Blood In Urine 08/14/2008 YATES DO, KARO K 789.00 Abdominal Pain 08/14/2008 SALLY FLANGER, VALERIE S 599.70 Blood In Urine 08/14/2008 SALLY FLANGER, VALERIE S 789.00 Abdominal Pain 08/14/2008 YATES DO, KARO K 599.70 Blood In Urine 08/14/2008 YATES DO, KARO K 789.00 Abdominal Pain 08/14/2008 SALLY FLANGER, VALERIE S 599.70 Blood In Urine 08/14/2008 SALLY FLANGER, VALERIE S 789.00 Abdominal Pain 08/14/2008 SALLY FLANGER, VALERIE S 599.70 Blood In Urine 08/14/2008 SALLY FLANGER, VALERIE S 789.00 Abdominal Pain 08/14/2008 SALLY FLANGER, VALERIE S 599.70 Blood In Urine 08/14/2008 SALLY FLANGER, VALERIE S 789.00 Abdominal Pain 08/14/2008 SALLY FLANGER, VALERIE S 599.70 Blood In Urine 08/14/2008 SALLY FLANGER, VALERIE S 789.00 Abdominal Pain 08/14/2008 SALLY FLANGER, VALERIE S 599.70 Blood In Urine 08/14/2008 SALLY FLANGER, VALERIE S 789.00 Abdominal Pain 08/14/2008 SALLY FLANGER, VALERIE S 599.70 Blood In Urine 08/14/2008 SALLY FLANGER, VALERIE S 789.00 Abdominal Pain 08/14/2008 SALLY FLANGER, VALERIE S 599.70 Blood In Urine 08/14/2008 SALLY FLANGER, VALERIE S 789.00 Abdominal Pain 08/14/2008 YATES DO, KARO K 599.70 Blood In Urine 08/14/2008 YATES DO, KARO K 789.00 Abdominal Pain 08/14/2008 SALLY FLANGER, VALERIE S 599.70 Blood In Urine 08/14/2008 SALLY FLANGER, VALERIE S 789.00 Abdominal Pain 08/14/2008 YATES DO, KARO K 599.70 Blood In Urine 08/14/2008 YATES DO, KARO K 789.00 Abdominal Pain 08/14/2008 SALLY FLANGER, VALERIE S 599.70 Blood In Urine 08/14/2008 SALLY FLANGER, VALERIE S 789.00 Abdominal Pain 08/14/2008 SALLY FLANGER, VALERIE S 599.70 Blood In Urine 08/14/2008 SALLY FLANGER, VALERIE S 789.00 Abdominal Pain 08/14/2008 SALLY FLANGER, VALERIE S 599.70 Blood In Urine 08/14/2008 SALLY FLANGER, VALERIE S 789.00 Abdominal Pain 08/14/2008 YATES DO, KARO K 599.70 Blood In Urine 08/14/2008 YATES DO, KARO K 789.00 Abdominal Pain 08/14/2008 SALLY FLANGER, VALERIE S 599.70 Blood In Urine 08/14/2008 SALLY FLANGER, VALERIE S 789.00 Abdominal Pain 09/09/2008 YATES DO, KARO K 599.0 Urinary Tract Infection 09/09/2008 YATES DO, KARO K 599.0 Urinary Tract Infection 09/09/2008 TACO FLANGER, ZORAIDA R 599.0 Urinary Tract Infection 09/09/2008 599.0 Urinary Tract Infection 09/09/2008 SALLY FLANGER, VALERIE S 599.0 Urinary Tract Infection 09/09/2008 YATES DO, KARO K 599.0 Urinary Tract Infection 09/09/2008 SALLY FLANGER, VALERIE S 599.0 Urinary Tract Infection 09/09/2008 SALLY FLANGER, VALERIE S 599.0 Urinary Tract Infection 09/09/2008 YATES DO, KARO K 599.0 Urinary Tract Infection 09/09/2008 599.0 Urinary Tract Infection 09/09/2008 599.0 Urinary Tract Infection 09/09/2008 599.0 Urinary Tract Infection 09/09/2008 MICHELLE CAMARGO MD 599.0 Urinary Tract Infection 09/09/2008 SALLY FLANGER, VALERIE S 599.0 Urinary Tract Infection 09/09/2008 SALLY FLANGER, VALERIE S 599.0 Urinary Tract Infection 09/09/2008 YATES DO, KARO K 599.0 Urinary Tract Infection 09/09/2008 SALLY FLANGER, VALERIE S 599.0 Urinary Tract Infection 09/09/2008 YATES DO, KARO K 599.0 Urinary Tract Infection 09/09/2008 SALLY FLANGER, VALERIE S 599.0 Urinary Tract Infection 09/09/2008 SALLY FLANGER, VALERIE S 599.0 Urinary Tract Infection 09/09/2008 SALLY FLANGER, VALERIE S 599.0 Urinary Tract Infection 09/09/2008 SALLY FLANGER, VALERIE S 599.0 Urinary Tract Infection 09/09/2008 SALLY FLANGER, VALERIE S 599.0 Urinary Tract Infection 09/09/2008 SALLY FLANGER, VALERIE S 599.0 Urinary Tract Infection 09/09/2008 SALLY FLANGER, VALERIE S 599.0 Urinary Tract Infection 09/09/2008 YATES DO, KARO K 599.0 Urinary Tract Infection 09/09/2008 SALLY FLANGER, VALERIE S 599.0 Urinary Tract Infection 09/09/2008 YATES DO, KARO K 599.0 Urinary Tract Infection 09/09/2008 SALLY FLANGER, VALERIE S 599.0 Urinary Tract Infection 09/09/2008 SALLY FLANGER, VALERIE S 599.0 Urinary Tract Infection 09/09/2008 SALLY FLANGER, VALERIE S 599.0 Urinary Tract Infection 09/09/2008 YATES DO, KARO K 599.0 Urinary Tract Infection 09/09/2008 SALLY FLANGER, VALERIE S 599.0 Urinary Tract Infection 09/30/2008 YATES DO, KARO K 564.1 IRRITABLE BOWEL SYNDROME 09/30/2008 YATES DO, KARO K 724.2 LUMBAGO 09/30/2008 YATES DO, KARO K 564.1 IRRITABLE BOWEL SYNDROME 09/30/2008 YATES DO, KARO K 724.2 LUMBAGO 09/30/2008 CHARLEEN ESPAÑA APRNRICIA R 564.1 IRRITABLE BOWEL SYNDROME 09/30/2008 TACO FLANGER ZORAIDA R 724.2 LUMBAGO 09/30/2008 564.1 IRRITABLE BOWEL SYNDROME 09/30/2008 724.2 LUMBAGO 09/30/2008 SALLY FLANGER, VALERIE S 564.1 IRRITABLE BOWEL SYNDROME 09/30/2008 SALLY FLANGER, VALERIE S 724.2 LUMBAGO 09/30/2008 YATES DO, KARO K 564.1 IRRITABLE BOWEL SYNDROME 09/30/2008 YATES DO, KARO K 724.2 LUMBAGO 09/30/2008 SALLY FLANGER, VALERIE S 564.1 IRRITABLE BOWEL SYNDROME 09/30/2008 [...] S 564.1 IRRITABLE BOWEL SYNDROME 09/30/2008 SALLY FLANGER, VALERIE S 724.2 LUMBAGO 09/30/2008 SALLY FLANGER, VALERIE S 564.1 IRRITABLE BOWEL SYNDROME 09/30/2008 SALLY FLANGER, VALERIE S 724.2 LUMBAGO 09/30/2008 SALLY FLANGER, VALERIE S 564.1 IRRITABLE BOWEL SYNDROME 09/30/2008 SALLY FLANGER, VALERIE S 724.2 LUMBAGO 09/30/2008 SALLY FLANGER, VALERIE S 564.1 IRRITABLE BOWEL SYNDROME 09/30/2008 SALLY FLANGER, VALERIE S 724.2 LUMBAGO 09/30/2008 SALLY FLANGER, VALERIE S 564.1 IRRITABLE BOWEL SYNDROME 09/30/2008 SALLY FLANGER, VALERIE S 724.2 LUMBAGO 09/30/2008 SALLY FLANGER, VALERIE S 564.1 IRRITABLE BOWEL SYNDROME 09/30/2008 SALLY FLANGER, VALERIE S 724.2 LUMBAGO 09/30/2008 YATES DO, KARO K 564.1 IRRITABLE BOWEL SYNDROME 09/30/2008 YATES DO, KARO K 724.2 LUMBAGO 09/30/2008 SALLY FLANGER, VALERIE S 564.1 IRRITABLE BOWEL SYNDROME 09/30/2008 SALLY FLANGER, VALERIE S 724.2 LUMBAGO 09/30/2008 YATES DO, KARO K 564.1 IRRITABLE BOWEL SYNDROME 09/30/2008 YATES DO, KARO K 724.2 LUMBAGO 09/30/2008 SALLY FLANGER, VALERIE S 564.1 IRRITABLE BOWEL SYNDROME 09/30/2008 SALLY FLANGER, VALERIE S 724.2 LUMBAGO 09/30/2008 SALLY FLANGER, VALERIE S 564.1 IRRITABLE BOWEL SYNDROME 09/30/2008 SALLY FLANGER, VALERIE S 724.2 LUMBAGO 09/30/2008 SALLY FLANGER, VALERIE S 564.1 IRRITABLE BOWEL SYNDROME 09/30/2008 SALLY FLANGER, VALERIE S 724.2 LUMBAGO 09/30/2008 YATES DO, KARO K 564.1 IRRITABLE BOWEL SYNDROME 09/30/2008 YATES DO, KARO K 724.2 LUMBAGO 09/30/2008 SALLY FLANGER, VALERIE S 564.1 IRRITABLE BOWEL SYNDROME 09/30/2008 SALLY FLANGER, VALERIE S 724.2 LUMBAGO 10/21/2008 YATES DO, KARO K 788.1 Dysuria 10/21/2008 YATES DO, KARO K 788.1 Dysuria 10/21/2008 TACO FLANGER, ZORAIDA R 788.1 Dysuria 10/21/2008 788.1 Dysuria 10/21/2008 SALLY FLANGER, VALERIE S 788.1 Dysuria 10/21/2008 YATES DO, KARO K 788.1 Dysuria 10/21/2008 SALLY FLANGER, VALERIE S 788.1 Dysuria 10/21/2008 SALLY FLANGER, VALERIE S 788.1 Dysuria 10/21/2008 YATES DO, KARO K 788.1 Dysuria 10/21/2008 788.1 Dysuria 10/21/2008 788.1 Dysuria 10/21/2008 788.1 Dysuria 10/21/2008 MARY JO ABRAMS, MICHELLE 788.1 Dysuria 10/21/2008 SALLY FLANGER, VALERIE S 788.1 Dysuria 10/21/2008 SALLY FLANGER, VALERIE S 788.1 Dysuria 10/21/2008 YATES DO, KARO K 788.1 Dysuria 10/21/2008 SALLY FLANGER, VALERIE S 788.1 Dysuria 10/21/2008 YATES DO, KARO K 788.1 Dysuria 10/21/2008 SALLY FLANGER, VALERIE S 788.1 Dysuria 10/21/2008 SALLY FLANGER, VALERIE S 788.1 Dysuria 10/21/2008 SALLY FLANGER, VALERIE S 788.1 Dysuria 10/21/2008 SALLY FLANGER, VALERIE S 788.1 Dysuria 10/21/2008 SALLY FLANGER, VALERIE S 788.1 Dysuria 10/21/2008 SALLY FLANGER, VALERIE S 788.1 Dysuria 10/21/2008 SALLY FLANGER, VALERIE S 788.1 Dysuria 10/21/2008 YATES DO, KARO K 788.1 Dysuria 10/21/2008 SALLY FLANGER, VALERIE S 788.1 Dysuria 10/21/2008 YATES DO, KARO K 788.1 Dysuria 10/21/2008 SALLY FLANGER, VALERIE S 788.1 Dysuria 10/21/2008 SALLY FLANGER, VALERIE S 788.1 Dysuria 10/21/2008 SALLY FLANGER, VALERIE S 788.1 Dysuria 10/21/2008 YATES DO, KARO K 788.1 Dysuria 10/21/2008 SALLY FLANGER, VALERIE S 788.1 Dysuria 01/13/2009 YATES DO, KARO K 300.00 Anxiety State Unspecified 01/13/2009 YATES DO, KARO K 401.9 UNSPECIFIED ESSENTIAL HYPERTENSION 01/13/2009 YATES DO, KARO K 300.00 Anxiety State Unspecified 01/13/2009 YATES DO, KARO K 401.9 UNSPECIFIED ESSENTIAL HYPERTENSION 01/13/2009 ESPAÑA FLANGER, ZORAIDA R 300.00 Anxiety State Unspecified 01/13/2009 ESPAÑA FLANGER, ZORAIDA R 401.9 UNSPECIFIED ESSENTIAL HYPERTENSION 01/13/2009 300.00 Anxiety State Unspecified 01/13/2009 401.9 UNSPECIFIED ESSENTIAL HYPERTENSION 01/13/2009 SALLY FLANGER, VALERIE S 300.00 Anxiety State Unspecified 01/13/2009 SALLY FLANGER, VALERIE S 401.9 UNSPECIFIED ESSENTIAL HYPERTENSION 01/13/2009 YATES DO, KARO K 300.00 Anxiety State Unspecified 01/13/2009 YATES DO, KARO K 401.9 UNSPECIFIED ESSENTIAL HYPERTENSION 01/13/2009 SALLY FLANGER, VALERIE S 300.00 Anxiety State Unspecified 01/13/2009 SALLY FLANGER, VALERIE S 401.9 UNSPECIFIED ESSENTIAL HYPERTENSION 01/13/2009 SALLY FLANGER, VALERIE S 300.00 Anxiety State Unspecified 01/13/2009 SALLY FLANGER, VALERIE S 401.9 UNSPECIFIED ESSENTIAL HYPERTENSION 01/13/2009 [...] MD 401.9 UNSPECIFIED ESSENTIAL HYPERTENSION 01/13/2009 SALLY FLANGER VALERIE S 300.00 Anxiety State Unspecified 01/13/2009 SALLY RIVERA VALERIE S 401.9 UNSPECIFIED ESSENTIAL HYPERTENSION 01/13/2009 SALLY PERSAUDN VALERIE S 300.00 Anxiety State Unspecified 01/13/2009 SERINA ZAVALA APRNNDA S 401.9 UNSPECIFIED ESSENTIAL HYPERTENSION 01/13/2009 YATES DO, KARO K 300.00 Anxiety State Unspecified 01/13/2009 YATES DO, KARO K 401.9 UNSPECIFIED ESSENTIAL HYPERTENSION 01/13/2009 SALLY FLANGER VALERIE S 300.00 Anxiety State Unspecified 01/13/2009 SALLY FLANGER VALERIE S 401.9 UNSPECIFIED ESSENTIAL HYPERTENSION 01/13/2009 YATES DO, KARO K 300.00 Anxiety State Unspecified 01/13/2009 YATES DO, KARO K 401.9 UNSPECIFIED ESSENTIAL HYPERTENSION 01/13/2009 SALLY FLANGER, VALERIE S 300.00 Anxiety State Unspecified 01/13/2009 SALLY FLANGER, VALERIE S 401.9 UNSPECIFIED ESSENTIAL HYPERTENSION 01/13/2009 SALLY FLANGER, VALERIE S 300.00 Anxiety State Unspecified 01/13/2009 SALLY FLANGER VALERIE S 401.9 UNSPECIFIED ESSENTIAL HYPERTENSION 01/13/2009 SALLY FLANGER, VALERIE S 300.00 Anxiety State Unspecified 01/13/2009 SALLY FLANGER, VALERIE S 401.9 UNSPECIFIED ESSENTIAL HYPERTENSION 01/13/2009 SALLY FLANGER, VALERIE S 300.00 Anxiety State Unspecified 01/13/2009 SALLY FLANGER, VALERIE S 401.9 UNSPECIFIED ESSENTIAL HYPERTENSION 01/13/2009 SALLY FLANGER, VALERIE S 300.00 Anxiety State Unspecified 01/13/2009 SALLY FLANGER, VALERIE S 401.9 UNSPECIFIED ESSENTIAL HYPERTENSION 01/13/2009 SALLY FLANGER, VALERIE S 300.00 Anxiety State Unspecified 01/13/2009 SALLY FLANGER, VALERIE S 401.9 UNSPECIFIED ESSENTIAL HYPERTENSION 01/13/2009 SALLY FLANGER, VALERIE S 300.00 Anxiety State Unspecified 01/13/2009 SALLY FLANGER, VALERIE S 401.9 UNSPECIFIED ESSENTIAL HYPERTENSION 01/13/2009 YATES DO, KARO K 300.00 Anxiety State Unspecified 01/13/2009 YATES DO, KARO K 401.9 UNSPECIFIED ESSENTIAL HYPERTENSION 01/13/2009 SALLY FLANGER, VALERIE S 300.00 Anxiety State Unspecified 01/13/2009 SALLY FLANGER, VALERIE S 401.9 UNSPECIFIED ESSENTIAL HYPERTENSION 01/13/2009 YATES DO, KARO K 300.00 Anxiety State Unspecified 01/13/2009 YATES DO, KARO K 401.9 UNSPECIFIED ESSENTIAL HYPERTENSION 01/13/2009 SALLY FLANGER, VALERIE S 300.00 Anxiety State Unspecified 01/13/2009 SALLY FLANGER, VALERIE S 401.9 UNSPECIFIED ESSENTIAL HYPERTENSION 01/13/2009 SALLY FLANGER, VALERIE S 300.00 Anxiety State Unspecified 01/13/2009 SALLY FLANGER, VALERIE S 401.9 UNSPECIFIED ESSENTIAL HYPERTENSION 01/13/2009 SALLY FLANGER, VALERIE S 300.00 Anxiety State Unspecified 01/13/2009 SALLY FLANGER, VALERIE S 401.9 UNSPECIFIED ESSENTIAL HYPERTENSION 01/13/2009 YATES DO, KARO K 300.00 Anxiety State Unspecified 01/13/2009 YATES DO, KARO K 401.9 UNSPECIFIED ESSENTIAL HYPERTENSION 01/13/2009 SALLY FLANGER, VALERIE S 300.00 Anxiety State Unspecified 01/13/2009 SALLY FLANGER, VALERIE S 401.9 UNSPECIFIED ESSENTIAL HYPERTENSION 03/25/2009 YATES DO, KARO K 296.90 Episodic Mood Disorders 03/25/2009 YATES DO, KARO K 780.79 Feelings Of Weakness 03/25/2009 YATES DO, KARO K 787.91 Diarrhea 03/25/2009 YATES DO, KARO K 296.90 Episodic Mood Disorders 03/25/2009 YATES DO, KARO K 780.79 Feelings Of Weakness 03/25/2009 YATES DO, KARO K 787.91 Diarrhea 03/25/2009 ESPAÑA FLANGER, ZORAIDA R 296.90 Episodic Mood Disorders 03/25/2009 ESPAÑA FLANGER, ZORAIDA R 780.79 Feelings Of Weakness 03/25/2009 ESPAÑA FLANGER, ZORAIDA R 787.91 Diarrhea 03/25/2009 296.90 Episodic [...] S 780.79 Feelings Of Weakness 03/25/2009 SALLY FLANGER, VALERIE S 787.91 Diarrhea 03/25/2009 YATES DO, [...] MICHELLE CAMARGO MD 787.91 Diarrhea 03/25/2009 SALLY IRVERA VALERIE S 296.90 Episodic Mood Disorders 03/25/2009 [...] DO, KARO K 787.91 Diarrhea 03/25/2009 SALLY FLANGER, VALERIE S 296.90 Episodic Mood Disorders 03/25/2009 SALLY RIVERA VALERIE S 780.79 Feelings Of Weakness 03/25/2009 SALLY FLANGER VALERIE S 787.91 Diarrhea 03/25/2009 SALLY FLANGER VALERIE S 296.90 Episodic Mood Disorders 03/25/2009 [...] S 296.90 Episodic Mood Disorders 03/25/2009 SALLY FLANGER, VALERIE S 780.79 Feelings Of Weakness 03/25/2009 SALLY RIVERA VALERIE S 787.91 Diarrhea 03/25/2009 SALLY FLANGER, VALERIE S 296.90 Episodic Mood Disorders 03/25/2009 SALLY FLANGER, VALERIE S 780.79 Feelings Of Weakness 03/25/2009 [...] ABRAMS, MICHELLE 599.71 Gross Hematuria 10/20/2009 SALLY FLANGER, VALERIE S 599.71 Gross Hematuria 10/20/2009 SALLY FLANGER, VALERIE S 599.71 Gross Hematuria 10/20/2009 YATES DO, KARO K 599.71 Gross Hematuria 10/20/2009 SALLY FLANGER, VALERIE S 599.71 Gross Hematuria 10/20/2009 YATES DO, KARO K 599.71 Gross Hematuria 10/20/2009 SALLY FLANGER, VALERIE S 599.71 Gross Hematuria 10/20/2009 SALLY FLANGER, VALERIE S 599.71 Gross Hematuria 10/20/2009 SALLY FLANGER, VALERIE S 599.71 Gross Hematuria 10/20/2009 SALLY FLANGER, VALERIE S 599.71 Gross Hematuria 10/20/2009 SALLY FLANGER, VALERIE S 599.71 Gross Hematuria 10/20/2009 SALLY FLANGER, VALERIE S 599.71 Gross Hematuria 10/20/2009 SALLY FLANGER, VALERIE S 599.71 Gross Hematuria 10/20/2009 YATES DO, KARO K 599.71 Gross Hematuria 10/20/2009 SALLY FLANGER, VALERIE S 599.71 Gross Hematuria 10/20/2009 YATES DO, KARO K 599.71 Gross Hematuria 10/20/2009 SALLY FLANGER, VALERIE S 599.71 Gross Hematuria 10/20/2009 SALLY FLANGER, VALERIE S 599.71 Gross Hematuria 10/20/2009 SALLY FLANGER, VALERIE S 599.71 Gross Hematuria 10/20/2009 YATES DO, KARO K 599.71 Gross Hematuria 10/20/2009 SALLY FLANGER, VALERIE S 599.71 Gross Hematuria 10/27/2009 YATES [...] KARO K 788.41 Urinary Frequency 10/27/2009 ESPAÑA FLANGER, ZORAIDA R 305.1 NICOTINE DEPENDENCE 10/27/2009 ESPAÑA FLANGER, ZORAIDA R 307.40 Insomnia 10/27/2009 ESPAÑA FLANGER, ZORAIDA R 536.8 Dyspepsia And Other Specified Disorders Of Function Of Stomach 10/27/2009 ESPAÑA FLANGER, ZORAIDA R 788.41 Urinary Frequency 10/27/2009 305.1 NICOTINE DEPENDENCE 10/27/2009 307.40 Insomnia 10/27/2009 536.8 Dyspepsia And Other Specified Disorders Of Function Of Stomach 10/27/2009 788.41 Urinary Frequency 10/27/2009 SALLY FLANGER, VALERIE S 305.1 NICOTINE DEPENDENCE 10/27/2009 SALLY FLANGER, VALERIE S 307.40 Insomnia 10/27/2009 SALLY FLANGER, VALERIE S 536.8 Dyspepsia And Other Specified Disorders Of Function Of Stomach 10/27/2009 SALLY FLANGER, VALERIE S 788.41 Urinary Frequency 10/27/2009 YATES DO, KARO K 305.1 NICOTINE DEPENDENCE 10/27/2009 YATES DO, KARO K 307.40 Insomnia 10/27/2009 YATES DO, KARO K 536.8 Dyspepsia And Other Specified Disorders Of Function Of Stomach 10/27/2009 YATES DO, KARO K 788.41 Urinary Frequency 10/27/2009 SALLY FLANGER, VALERIE S 305.1 NICOTINE DEPENDENCE 10/27/2009 SALLY FLANGER, VALERIE S 307.40 Insomnia 10/27/2009 SALLY FLANGER, VALERIE S 536.8 Dyspepsia And Other Specified Disorders Of Function Of Stomach 10/27/2009 SALLY FLANGER, VALERIE S 788.41 Urinary Frequency 10/27/2009 SALLY FLANGER, VALERIE S 305.1 NICOTINE DEPENDENCE 10/27/2009 SALLY FLANGER, VALERIE S 307.40 Insomnia 10/27/2009 SALLY FLANGER, VALERIE S 536.8 Dyspepsia And Other Specified Disorders Of Function Of Stomach 10/27/2009 SALLY FLANGER, VALERIE S 788.41 Urinary Frequency 10/27/2009 YATES [...] CAMARGO MD 788.41 Urinary Frequency 10/27/2009 SALLY FLANGER, VALERIE S 305.1 NICOTINE DEPENDENCE 10/27/2009 SALLY PERSAUDN, VALERIE S 307.40 Insomnia 10/27/2009 SALLY FLANGER, VALERIE S 536.8 Dyspepsia And Other Specified Disorders Of Function Of Stomach 10/27/2009 SALLY FLANGER, VALERIE S 788.41 Urinary Frequency 10/27/2009 SALLY FLANGER, VALERIE S 305.1 NICOTINE DEPENDENCE 10/27/2009 SALLY FLANGER, VALERIE S 307.40 Insomnia 10/27/2009 SALLY FLANGER, VALERIE S 536.8 Dyspepsia And Other Specified Disorders Of Function Of Stomach 10/27/2009 SALLY FLANGER, VALERIE S 788.41 Urinary Frequency 10/27/2009 YATES DO, KARO K 305.1 NICOTINE DEPENDENCE 10/27/2009 YATES DO, KAOR K 307.40 Insomnia 10/27/2009 YATES DO, KARO K 536.8 Dyspepsia And Other Specified Disorders Of Function Of Stomach 10/27/2009 YATES DO, KARO K 788.41 Urinary Frequency 10/27/2009 SALLY FLANGER, VALERIE S 305.1 NICOTINE DEPENDENCE 10/27/2009 SALLY FLANGER, VALERIE S 307.40 Insomnia 10/27/2009 SALLY FLANGER, VALERIE S 536.8 Dyspepsia And Other Specified Disorders Of Function Of Stomach 10/27/2009 SALLY FLANGER, VALERIE S 788.41 Urinary Frequency 10/27/2009 YATES DO, KARO K 305.1 NICOTINE DEPENDENCE 10/27/2009 YATES DO, KARO K 307.40 Insomnia 10/27/2009 YATES DO, KARO K 536.8 Dyspepsia And Other Specified Disorders Of Function Of Stomach 10/27/2009 YATES DO, KARO K 788.41 Urinary Frequency 10/27/2009 SALLY FLANGER, VALERIE S 305.1 NICOTINE DEPENDENCE 10/27/2009 SALLY FLANGER, VALERIE S 307.40 Insomnia 10/27/2009 SALLY FLANGER, VALERIE S 536.8 Dyspepsia And Other Specified Disorders Of Function Of Stomach 10/27/2009 SALLY FLANGER, VALERIE S 788.41 Urinary Frequency 10/27/2009 SALLY FLANGER, VALERIE S 305.1 NICOTINE DEPENDENCE 10/27/2009 SALLY FLANGER, VALERIE S 307.40 Insomnia 10/27/2009 SALLY FLANGER, VALERIE S 536.8 Dyspepsia And Other Specified Disorders Of Function Of Stomach 10/27/2009 SALLY FLANGER, VALERIE S 788.41 Urinary Frequency 10/27/2009 SALLY FLANGER, VALERIE S 305.1 NICOTINE DEPENDENCE 10/27/2009 SALLY FLANGER, VALERIE S 307.40 Insomnia 10/27/2009 SALLY FLANGER, VALERIE S 536.8 Dyspepsia And Other Specified Disorders Of Function Of Stomach 10/27/2009 SALLY FLANGER, VALERIE S 788.41 Urinary Frequency 10/27/2009 SALLY FLANGER, VALERIE S 305.1 NICOTINE DEPENDENCE 10/27/2009 SALLY FLANGER, VALERIE S 307.40 Insomnia 10/27/2009 SALLY FLANGER, VALERIE S 536.8 Dyspepsia And Other Specified Disorders Of Function Of Stomach 10/27/2009 SALLY FLANGER, VALERIE S 788.41 Urinary Frequency 10/27/2009 SALLY FLANGER, VALERIE S 305.1 NICOTINE DEPENDENCE 10/27/2009 SALLY FLANGER, VALERIE S 307.40 Insomnia 10/27/2009 SALLY FLANGER, VALERIE S 536.8 Dyspepsia And Other Specified Disorders Of Function Of Stomach 10/27/2009 SALLY FLANGER, VALERIE S 788.41 Urinary Frequency 10/27/2009 SALLY FLANGER, VALERIE S 305.1 NICOTINE DEPENDENCE 10/27/2009 SALLY FLANGER, VALERIE S 307.40 Insomnia 10/27/2009 SALLY FLANGER, VALERIE S 536.8 Dyspepsia And Other Specified Disorders Of Function Of Stomach 10/27/2009 SALLY FLANGER, VALERIE S 788.41 Urinary Frequency 10/27/2009 SALLY FLANGER, VALERIE S 305.1 NICOTINE DEPENDENCE 10/27/2009 SALLY FLANGER, VALERIE S 307.40 Insomnia 10/27/2009 SALLY FLANGER, VALERIE S 536.8 Dyspepsia And Other Specified Disorders Of Function Of Stomach 10/27/2009 SALLY FLANGER, VALERIE S 788.41 Urinary Frequency 10/27/2009 YATES DO, KARO K 305.1 NICOTINE DEPENDENCE 10/27/2009 YATES DO, KARO K 307.40 Insomnia 10/27/2009 YATES DO, KARO K 536.8 Dyspepsia And Other Specified Disorders Of Function Of Stomach 10/27/2009 YATES DO, KARO K 788.41 Urinary Frequency 10/27/2009 SALLY FLANGER, VALERIE S 305.1 NICOTINE DEPENDENCE 10/27/2009 SALLY FLANGER, VALERIE S 307.40 Insomnia 10/27/2009 SALLY FLANGER, VALERIE S 536.8 Dyspepsia And Other Specified Disorders Of Function Of Stomach 10/27/2009 SALLY FLANGER, VALERIE S 788.41 Urinary Frequency 10/27/2009 YATES DO, KARO K 305.1 NICOTINE DEPENDENCE 10/27/2009 YATES DO, KARO K 307.40 Insomnia 10/27/2009 YATES DO, KARO K 536.8 Dyspepsia And Other Specified Disorders Of Function Of Stomach 10/27/2009 YATES DO, KARO K 788.41 Urinary Frequency 10/27/2009 SALLY FLANGER, VALERIE S 305.1 NICOTINE DEPENDENCE 10/27/2009 SALLY FLANGER, VALERIE S 307.40 Insomnia 10/27/2009 SALLY FLANGER, VALERIE S 536.8 Dyspepsia And Other Specified Disorders Of Function Of Stomach 10/27/2009 SALLY FLANGER, VALERIE S 788.41 Urinary Frequency 10/27/2009 SALLY FLANGER, VALERIE S 305.1 NICOTINE DEPENDENCE 10/27/2009 SALLY FLANGER, VALERIE S 307.40 Insomnia 10/27/2009 SALLY FLANGER, VALERIE S 536.8 Dyspepsia And Other Specified Disorders Of Function Of Stomach 10/27/2009 SALLY FLANGER, VALERIE S 788.41 Urinary Frequency 10/27/2009 SALLY FLANGER, VALERIE S 305.1 NICOTINE DEPENDENCE 10/27/2009 SALLY FLANGER, VALERIE S 307.40 Insomnia 10/27/2009 SALLY FLANGER, VALERIE S 536.8 Dyspepsia And Other Specified Disorders Of Function Of Stomach 10/27/2009 SALLY FLANGER, VALERIE S 788.41 Urinary Frequency 10/27/2009 YATES DO, KARO K 305.1 NICOTINE DEPENDENCE 10/27/2009 YATES DO, KARO K 307.40 Insomnia 10/27/2009 YATES DO, KARO K 536.8 Dyspepsia And Other Specified Disorders Of Function Of Stomach 10/27/2009 YATES DO, KARO K 788.41 Urinary Frequency 10/27/2009 SALLY FLANGER, VALERIE S 305.1 NICOTINE DEPENDENCE 10/27/2009 SALLY FLANGER, VALERIE S 307.40 Insomnia 10/27/2009 SALLY FLANGER, VALERIE S 536.8 Dyspepsia And Other Specified Disorders Of Function Of Stomach 10/27/2009 SALLY FLANGER, VALERIE S 788.41 Urinary Frequency 12/03/2009 YATES DO, KARO K 564.00 Constipation 12/03/2009 YATES DO, KARO K 564.00 Constipation 12/03/2009 ZORAIDA ESPAÑA APRN R 564.00 Constipation 12/03/2009 564.00 Constipation 12/03/2009 SALLY FLANGER, VALERIE S 564.00 Constipation 12/03/2009 YATES DO, KARO K 564.00 Constipation 12/03/2009 SALLY FLANGER, VALERIE S 564.00 Constipation 12/03/2009 SALLY FLANGER, VALERIE S 564.00 Constipation 12/03/2009 YATES DO KARO K 564.00 Constipation 12/03/2009 564.00 Constipation 12/03/2009 564.00 Constipation 12/03/2009 564.00 Constipation 12/03/2009 MICHELLE CAMARGO MD 564.00 Constipation 12/03/2009 SALLY FLANGER, VALERIE S 564.00 Constipation 12/03/2009 SALLY FLANGER, VALERIE S 564.00 Constipation 12/03/2009 YATES DO, KARO K 564.00 Constipation 12/03/2009 SALLY FLANGER, VALERIE S 564.00 Constipation 12/03/2009 YATES DO, KARO K 564.00 Constipation 12/03/2009 SALLY FLANGER, VALERIE S 564.00 Constipation 12/03/2009 SALLY FLANGER, VALERIE S 564.00 Constipation 12/03/2009 SALLY FLANGER, VALERIE S 564.00 Constipation 12/03/2009 SALLY FLANGER, VALERIE S 564.00 Constipation 12/03/2009 SALLY FLANGER, VALERIE S 564.00 Constipation 12/03/2009 SALLY FLANGER, VALERIE S 564.00 Constipation 12/03/2009 SALLY FLANGER, VALERIE S 564.00 Constipation 12/03/2009 YATES DO KARO K 564.00 Constipation 12/03/2009 SALLY FLANGER, VALERIE S 564.00 Constipation 12/03/2009 YATES DO, KARO K 564.00 Constipation 12/03/2009 SALLY FLANGER, VALERIE S 564.00 Constipation 12/03/2009 SALLY FLANGER, VALERIE S 564.00 Constipation 12/03/2009 SALLY FLANGER, VALERIE S 564.00 Constipation 12/03/2009 YATES DO, KARO K 564.00 Constipation 12/03/2009 SALLY FLANGER, VALERIE S 564.00 Constipation 02/22/2010 Ot 530.81 02/22/2010 Ot 789.09 02/22/2010 Ot V12.72 05/11/2010 YATES DO, KARO K 724.5 Back Pain, General 05/11/2010 YATES DO KARO K 724.5 Back Pain, General 05/11/2010 ZORAIDA ESPAÑA APRN 724.5 Back Pain, General 05/11/2010 724.5 Back Pain, General 05/11/2010 SALLY FLANGER VALERIE S 724.5 Back Pain, General 05/11/2010 YATES DO KARO K 724.5 Back Pain, General 05/11/2010 SALLY FLANGER, VALERIE S 724.5 Back Pain, General 05/11/2010 SALLY FLANGER, VALERIE S 724.5 Back Pain, General 05/11/2010 YATES DO KARO K 724.5 Back Pain, General 05/11/2010 724.5 Back Pain, General 05/11/2010 724.5 Back Pain, General 05/11/2010 724.5 Back Pain, General 05/11/2010 MARY JO ABRAMS, MICHELLE 724.5 Back Pain, General 05/11/2010 SALLY FLANGER, VALERIE S 724.5 Back Pain, General 05/11/2010 SALLY FLANGER, VALERIE S 724.5 Back Pain, General 05/11/2010 YATES DO KARO K 724.5 Back Pain, General 05/11/2010 SALLY FLANGER, VALERIE S 724.5 Back Pain, General 05/11/2010 YATES DO KARO K 724.5 Back Pain, General 05/11/2010 SALLY FLANGER, VALERIE S 724.5 Back Pain, General 05/11/2010 SALLY FLANGER, VALERIE S 724.5 Back Pain, General 05/11/2010 SALLY FLANGER, VALERIE S 724.5 Back Pain, General 05/11/2010 SALLY FLANGER, VALERIE S 724.5 Back Pain, General 05/11/2010 SALLY FLANGER, VALERIE S 724.5 Back Pain, General 05/11/2010 SALLY FLANGER, VALERIE S 724.5 Back Pain, General 05/11/2010 SALLY FLANGER, VALERIE S 724.5 Back Pain, General 05/11/2010 YATES DO, KARO K 724.5 Back Pain, General 05/11/2010 SALLY FLANGER, VALERIE S 724.5 Back Pain, General 05/11/2010 YATES DO, KARO K 724.5 Back Pain, General 05/11/2010 SALLY FLANGER, VALERIE S 724.5 Back Pain, General 05/11/2010 SALLY FLANGER, VALERIE S 724.5 Back Pain, General 05/11/2010 SALLY FLANGER, VALERIE S 724.5 Back Pain, General 05/11/2010 YATES DO, KARO K 724.5 Back Pain, General 05/11/2010 SALLY FLANGER, VALERIE S 724.5 Back Pain, General 05/21/2010 YATES DO KARO K 627.9 Menopausal And Postmenopausal Disorder Unspecified 05/21/2010 YATES DO KARO K 722.10 Displacement Of Lumbar Intervertebral Disc Without Myelopathy 05/21/2010 YATES DO KARO K V72.31 Special Delivery Messenger Exam, Routine 05/21/2010 YATES DO KARO K 627.9 Menopausal And Postmenopausal Disorder Unspecified 05/21/2010 YATES DO KARO K 722.10 Displacement Of Lumbar Intervertebral Disc Without Myelopathy 05/21/2010 YATES DO KARO K V72.31 Special Delivery Messenger Exam, Routine 05/21/2010 ZORAIDA ESPAÑA APRN R 627.9 Menopausal And Postmenopausal Disorder Unspecified 05/21/2010 ZORAIDA ESPAÑA APRN R 722.10 Displacement Of Lumbar Intervertebral Disc Without Myelopathy 05/21/2010 ZORAIDA ESPAÑA APRN V72.31 Special Delivery Messenger Exam, Routine 05/21/2010 627.9 Menopausal And Postmenopausal Disorder Unspecified 05/21/2010 722.10 Displacement Of Lumbar Intervertebral Disc Without Myelopathy 05/21/2010 V72.31 Special Delivery Messenger Exam, Routine 05/21/2010 SALLY FLANGER VALERIE S 627.9 Menopausal And Postmenopausal Disorder Unspecified 05/21/2010 SALLY FLANGER VALERIE S 722.10 Displacement Of Lumbar Intervertebral Disc Without Myelopathy 05/21/2010 SALLY FLANGER VALERIE S V72.31 Special Delivery Messenger Exam, Routine 05/21/2010 YATES DO KARO K 627.9 Menopausal And Postmenopausal Disorder Unspecified 05/21/2010 YATES DO KARO K 722.10 Displacement Of Lumbar Intervertebral Disc Without Myelopathy 05/21/2010 YATES DO KARO K V72.31 Special Delivery Messenger Exam, Routine 05/21/2010 SALLY FLANGER VALERIE S 627.9 Menopausal And Postmenopausal Disorder Unspecified 05/21/2010 SALLY FLANGER VALERIE S 722.10 Displacement Of Lumbar Intervertebral Disc Without Myelopathy 05/21/2010 SALLY FLANGER VALERIE S V72.31 Special Delivery Messenger Exam, Routine 05/21/2010 SALLY FLANGER VALERIE S 627.9 Menopausal And Postmenopausal Disorder Unspecified 05/21/2010 SALLY FLANGER, VALERIE S 722.10 Displacement Of Lumbar Intervertebral Disc Without Myelopathy 05/21/2010 SALLY FLANGER VALERIE S V72.31 Special Delivery Messenger Exam, Routine 05/21/2010 MILAN DO KARO K 627.9 Menopausal And Postmenopausal Disorder Unspecified 05/21/2010 YATES DO KARO K 722.10 Displacement Of Lumbar Intervertebral Disc Without Myelopathy 05/21/2010 YATES DO KARO K V72.31 Special Delivery Messenger Exam, Routine 05/21/2010 627.9 Menopausal And Postmenopausal Disorder Unspecified 05/21/2010 722.10 Displacement Of Lumbar Intervertebral Disc Without Myelopathy 05/21/2010 V72.31 Special Delivery Messenger Exam, Routine 05/21/2010 627.9 Menopausal And Postmenopausal Disorder Unspecified 05/21/2010 722.10 Displacement Of Lumbar Intervertebral Disc Without Myelopathy 05/21/2010 V72.31 Special Delivery Messenger Exam, Routine 05/21/2010 627.9 Menopausal And Postmenopausal Disorder Unspecified 05/21/2010 722.10 Displacement Of Lumbar Intervertebral Disc Without Myelopathy 05/21/2010 V72.31 Special Delivery Messenger Exam, Routine 05/21/2010 MICHELLE CAMARGO MD 627.9 Menopausal And Postmenopausal Disorder Unspecified 05/21/2010 MICHELLE CAMARGO MD 722.10 Displacement Of Lumbar Intervertebral Disc Without Myelopathy 05/21/2010 MICHELLE CAMARGO MD V72.31 Special Delivery Messenger Exam, Routine 05/21/2010 SALLY FLANGER, VALERIE S 627.9 Menopausal And Postmenopausal Disorder Unspecified 05/21/2010 SALLY FLANGER, VALERIE S 722.10 Displacement Of Lumbar Intervertebral Disc Without Myelopathy 05/21/2010 SALLY FLANGER, VALERIE S V72.31 Special Delivery Messenger Exam, Routine 05/21/2010 SALLY FLANGER, VALERIE S 627.9 Menopausal And Postmenopausal Disorder Unspecified 05/21/2010 SALLY FLANGER, VALERIE S 722.10 Displacement Of Lumbar Intervertebral Disc Without Myelopathy 05/21/2010 SALLY FLANGER, VALERIE S V72.31 Special Delivery Messenger Exam, Routine 05/21/2010 YATES DO, KARO K 627.9 Menopausal And Postmenopausal Disorder Unspecified 05/21/2010 YATES DO, KARO K 722.10 Displacement Of Lumbar Intervertebral Disc Without Myelopathy 05/21/2010 YATES DO, KARO K V72.31 Special Delivery Messenger Exam, Routine 05/21/2010 SALLY FLANGER, VALERIE S 627.9 Menopausal And Postmenopausal Disorder Unspecified 05/21/2010 SALLY FLANGER, VALERIE S 722.10 Displacement Of Lumbar Intervertebral Disc Without Myelopathy 05/21/2010 SALLY FLANGER, VALERIE S V72.31 Special Delivery Messenger Exam, Routine 05/21/2010 YATES DO, KARO K 627.9 Menopausal And Postmenopausal Disorder Unspecified 05/21/2010 YATES DO, KARO K 722.10 Displacement Of Lumbar Intervertebral Disc Without Myelopathy 05/21/2010 YATES DO, KARO K V72.31 Special Delivery Messenger Exam, Routine 05/21/2010 SALLY FLANGER, VALERIE S 627.9 Menopausal And Postmenopausal Disorder Unspecified 05/21/2010 SALLY FLANGER, VALERIE S 722.10 Displacement Of Lumbar Intervertebral Disc Without Myelopathy 05/21/2010 SALLY FLANGER, VALERIE S V72.31 Special Delivery Messenger Exam, Routine 05/21/2010 SALLY FLANGER, VALERIE S 627.9 Menopausal And Postmenopausal Disorder Unspecified 05/21/2010 SALLY FLANGER, VALERIE S 722.10 Displacement Of Lumbar Intervertebral Disc Without Myelopathy 05/21/2010 SALLY FLANGER, VALERIE S V72.31 Special Delivery Messenger Exam, Routine 05/21/2010 SALLY FLANGER, VALERIE S 627.9 Menopausal And Postmenopausal Disorder Unspecified 05/21/2010 SALLY FLANGER, VALERIE S 722.10 Displacement Of Lumbar Intervertebral Disc Without Myelopathy 05/21/2010 SALLY FLANGER, VALERIE S V72.31 Special Delivery Messenger Exam, Routine 05/21/2010 SALLY FLANGER, VALERIE S 627.9 Menopausal And Postmenopausal Disorder Unspecified 05/21/2010 SALLY FLANGER, VALERIE S 722.10 Displacement Of Lumbar Intervertebral Disc Without Myelopathy 05/21/2010 SALLY FLANGER, VALERIE S V72.31 Special Delivery Messenger Exam, Routine 05/21/2010 SALLY FLANGER, VALERIE S 627.9 Menopausal And Postmenopausal Disorder Unspecified 05/21/2010 SALLY FLANGER, VALERIE S 722.10 Displacement Of Lumbar Intervertebral Disc Without Myelopathy 05/21/2010 SALLY FLANGER, VALERIE S V72.31 Special Delivery Messenger Exam, Routine 05/21/2010 SALLY FLANGER, VALERIE S 627.9 Menopausal And Postmenopausal Disorder Unspecified 05/21/2010 SALLY FLANGER, VALERIE S 722.10 Displacement Of Lumbar Intervertebral Disc Without Myelopathy 05/21/2010 SALLY FLANGER, VALERIE S V72.31 Special Delivery Messenger Exam, Routine 05/21/2010 SALLY FLANGER, VALERIE S 627.9 Menopausal And Postmenopausal Disorder Unspecified 05/21/2010 SALLY FLANGER, VALERIE S 722.10 Displacement Of Lumbar Intervertebral Disc Without Myelopathy 05/21/2010 SALLY FLANGER, VALERIE S V72.31 Special Delivery Messenger Exam, Routine 05/21/2010 KARO YATES DO K 627.9 Menopausal And Postmenopausal Disorder Unspecified 05/21/2010 YATES DO, KARO K 722.10 Displacement Of Lumbar Intervertebral Disc Without Myelopathy 05/21/2010 YATES DO, KARO K V72.31 Special Delivery Messenger Exam, Routine 05/21/2010 SALLY FLANGER, VALERIE S 627.9 Menopausal And Postmenopausal Disorder Unspecified 05/21/2010 SALLY FLANGER, VALERIE S 722.10 Displacement Of Lumbar Intervertebral Disc Without Myelopathy 05/21/2010 SALLY FLANGER, VALERIE S V72.31 Special Delivery Messenger Exam, Routine 05/21/2010 YATES DO, KARO K 627.9 Menopausal And Postmenopausal Disorder Unspecified 05/21/2010 YATES DO, KARO K 722.10 Displacement Of Lumbar Intervertebral Disc Without Myelopathy 05/21/2010 YATES DO, KARO K V72.31 Special Delivery Messenger Exam, Routine 05/21/2010 SALLY FLANGER, VALERIE S 627.9 Menopausal And Postmenopausal Disorder Unspecified 05/21/2010 SALLY FLANGER, VALERIE S 722.10 Displacement Of Lumbar Intervertebral Disc Without Myelopathy 05/21/2010 SALLY FLANGER, VALERIE S V72.31 Special Delivery Messenger Exam, Routine 05/21/2010 SALLY FLANGER, VALERIE S 627.9 Menopausal And Postmenopausal Disorder Unspecified 05/21/2010 SALLY FLANGER, VALERIE S 722.10 Displacement Of Lumbar Intervertebral Disc Without Myelopathy 05/21/2010 SALLY FLANGER, VALERIE S V72.31 Special Delivery Messenger Exam, Routine 05/21/2010 SALLY FLANGER, VALERIE S 627.9 Menopausal And Postmenopausal Disorder Unspecified 05/21/2010 SALLY FLANGER, VALERIE S 722.10 Displacement Of Lumbar Intervertebral Disc Without Myelopathy 05/21/2010 SALLY FLANGER, VALERIE S V72.31 Special Delivery Messenger Exam, Routine 05/21/2010 YATES DO, KARO K 627.9 Menopausal And Postmenopausal Disorder Unspecified 05/21/2010 YATES DO, KARO K 722.10 Displacement Of Lumbar Intervertebral Disc Without Myelopathy 05/21/2010 YATES DO, KARO K V72.31 Special Delivery Messenger Exam, Routine 05/21/2010 SALLY FLANGER, VALERIE S 627.9 Menopausal And Postmenopausal Disorder Unspecified 05/21/2010 VALERIE ZAVALA APRN S 722.10 Displacement Of Lumbar Intervertebral Disc Without Myelopathy 05/21/2010 ADRIAN ZAVALA APRNA S V72.31 Special Delivery Messenger Exam, Routine 06/23/2010 MILAN RAMIREZ KARO K [...] Other Slipping Tripping Or Stumbling 10/13/2010 SALLY FLANGER, VALERIE S 719.46 Knee Pain 10/13/2010 SALLY FLANGERSERINAVALERIE S E885.9 Accidental Fall From Other Slipping Tripping Or Stumbling 10/13/2010 YATES DOHALEYA K 719.46 Knee Pain 10/13/2010 YATES DO KARO K E885.9 Accidental Fall From Other Slipping Tripping Or Stumbling 10/13/2010 SALLY FLANGER VALERIE S 719.46 Knee Pain 10/13/2010 SALLY FLANGERSERINAVALERIE S E885.9 Accidental Fall From Other Slipping Tripping Or Stumbling 10/13/2010 SALLY FLANGER, VALERIE S 719.46 Knee Pain 10/13/2010 SALLY FLANGER, VALERIE S E885.9 Accidental Fall From Other [...] From Other Slipping Tripping Or Stumbling 10/13/2010 SERNIA ZAVALA APRNNDA S 719.46 Knee Pain 10/13/2010 SERINA ZAVALA APRNNDA S E885.9 Accidental Fall From Other Slipping Tripping Or Stumbling 10/13/2010 SALLY FLANGER, VALERIE S 719.46 Knee Pain 10/13/2010 SERINA ZAVALA APRNNDA S E885.9 Accidental Fall From Other Slipping Tripping Or Stumbling 10/13/2010 YATES DO, KARO K 719.46 Knee Pain 10/13/2010 YATES DO, KARO K E885.9 Accidental Fall From Other Slipping Tripping Or Stumbling 10/13/2010 SALLY FLANGER, VALERIE S 719.46 Knee Pain 10/13/2010 SALLY FLANGER, VALERIE S E885.9 Accidental Fall From Other Slipping Tripping Or Stumbling 10/13/2010 YATES DO, KARO K 719.46 Knee Pain 10/13/2010 YATES DO, KARO K E885.9 Accidental Fall From Other Slipping Tripping Or Stumbling 10/13/2010 SALLY FLANGER, VALERIE S 719.46 Knee Pain 10/13/2010 SALLY FLANGER, VALERIE S E885.9 Accidental Fall From Other Slipping Tripping Or Stumbling 10/13/2010 SALLY FLANGER, VALERIE S 719.46 Knee Pain 10/13/2010 SALLY FLANGER, VLAERIE S E885.9 Accidental Fall From Other Slipping Tripping Or Stumbling 10/13/2010 SALLY FLANGER, VALERIE S 719.46 Knee Pain 10/13/2010 SALLY FLANGER, VALERIE S E885.9 Accidental Fall From Other Slipping Tripping Or Stumbling 10/13/2010 SALLY FLANGER, VALERIE S 719.46 Knee Pain 10/13/2010 SALLY FLANGER, VALERIE S E885.9 Accidental Fall From Other Slipping Tripping Or Stumbling 10/13/2010 SALLY FLANGER, VALERIE S 719.46 Knee Pain 10/13/2010 SALLY FLANGER, VALERIE S E885.9 Accidental Fall From Other Slipping Tripping Or Stumbling 10/13/2010 SALLY FLANGER, VALERIE S 719.46 Knee Pain 10/13/2010 SALLY FLANGER, VALERIE S E885.9 Accidental Fall From Other Slipping Tripping Or Stumbling 10/13/2010 SALLY FLANGER, VALERIE S 719.46 Knee Pain 10/13/2010 SALLY FLANGER, VALERIE S E885.9 Accidental Fall From Other Slipping Tripping Or Stumbling 10/13/2010 YATES DO, KARO K 719.46 Knee Pain 10/13/2010 YATES DO, KARO K E885.9 Accidental Fall From Other Slipping Tripping Or Stumbling 10/13/2010 SALLY FLANGER VALERIE S 719.46 Knee Pain 10/13/2010 SALLY FLANGER VALERIE S E885.9 Accidental Fall From Other Slipping Tripping Or Stumbling 10/13/2010 YATES DO KARO K 719.46 Knee Pain 10/13/2010 YATES DO KARO K E885.9 Accidental Fall From Other Slipping Tripping Or Stumbling 10/13/2010 SALLY FLANGER VALERIE S 719.46 Knee Pain 10/13/2010 SALLY FLANGER VALERIE S E885.9 Accidental Fall From Other Slipping Tripping Or Stumbling 10/13/2010 SALLY FLANGER VALERIE S 719.46 Knee Pain 10/13/2010 SALLY FLANGER VALERIE S E885.9 Accidental Fall From Other Slipping Tripping Or Stumbling 10/13/2010 SALLY FLANGER VALERIE S 719.46 Knee Pain 10/13/2010 SALLY FLANGER VALERIE S E885.9 Accidental Fall From Other Slipping Tripping Or Stumbling 10/13/2010 YATES DO KARO K 719.46 Knee Pain 10/13/2010 YATES DO KARO K E885.9 Accidental Fall From Other Slipping Tripping Or Stumbling 10/13/2010 SALLY FLANGER VALERIE S 719.46 Knee Pain 10/13/2010 SALLY FLANGER VALERIE S E885.9 Accidental Fall From Other Slipping Tripping Or Stumbling 11/07/2010 Ot 722.52 LUMB/ LUMBOSAC DISC DEGEN 11/07/2010 Ot 724.2 LUMBAGO 11/11/2010 YATES DO KARO K 401.1 HYPERTENSION, BENIGN ESSENTIAL 11/11/2010 YATES DO KARO K 401.1 HYPERTENSION, BENIGN ESSENTIAL 11/11/2010 ZORAIDA ESPAÑA APRN 401.1 HYPERTENSION, BENIGN ESSENTIAL 11/11/2010 401.1 HYPERTENSION, BENIGN ESSENTIAL 11/11/2010 SALLY FLANGER, VALERIE S 401.1 HYPERTENSION, BENIGN ESSENTIAL 11/11/2010 YATES DO, KARO K 401.1 HYPERTENSION, BENIGN ESSENTIAL 11/11/2010 SALLY FLANGER, VALERIE S 401.1 HYPERTENSION, BENIGN ESSENTIAL 11/11/2010 SALLY FLANGER, VALERIE S 401.1 HYPERTENSION, BENIGN ESSENTIAL 11/11/2010 YATES DO, KARO K 401.1 HYPERTENSION, BENIGN ESSENTIAL 11/11/2010 401.1 HYPERTENSION, BENIGN ESSENTIAL 11/11/2010 401.1 HYPERTENSION, BENIGN ESSENTIAL 11/11/2010 401.1 HYPERTENSION, BENIGN ESSENTIAL 11/11/2010 MARY JO ABRAMS, MICHELLE 401.1 HYPERTENSION, BENIGN ESSENTIAL 11/11/2010 SALLY FLANGER, VALERIE S 401.1 HYPERTENSION, BENIGN ESSENTIAL 11/11/2010 SALLY FLANGER, VALERIE S 401.1 HYPERTENSION, BENIGN ESSENTIAL 11/11/2010 YATES DO, KARO K 401.1 HYPERTENSION, BENIGN ESSENTIAL 11/11/2010 SALLY FLANGER, VALERIE S 401.1 HYPERTENSION, BENIGN ESSENTIAL 11/11/2010 YATES DO, KARO K 401.1 HYPERTENSION, BENIGN ESSENTIAL 11/11/2010 SALLY FLANGER, VALERIE S 401.1 HYPERTENSION, BENIGN ESSENTIAL 11/11/2010 SALLY FLANGER, VALERIE S 401.1 HYPERTENSION, BENIGN ESSENTIAL 11/11/2010 SALLY FLANGER, VALERIE S 401.1 HYPERTENSION, BENIGN ESSENTIAL 11/11/2010 SALLY FLANGER, VALERIE S 401.1 HYPERTENSION, BENIGN ESSENTIAL 11/11/2010 SALLY FLANGER, VALERIE S 401.1 HYPERTENSION, BENIGN ESSENTIAL 11/11/2010 SALLY FLANGER, VALERIE S 401.1 HYPERTENSION, BENIGN ESSENTIAL 11/11/2010 SALLY FLANGER, VALERIE S 401.1 HYPERTENSION, BENIGN ESSENTIAL 11/11/2010 YATES DO, KARO K 401.1 HYPERTENSION, BENIGN ESSENTIAL 11/11/2010 SALLY FLANGER, VALERIE S 401.1 HYPERTENSION, BENIGN ESSENTIAL 11/11/2010 YATES DO, KARO K 401.1 HYPERTENSION, BENIGN ESSENTIAL 11/11/2010 SALLY FLANGER, VALERIE S 401.1 HYPERTENSION, BENIGN ESSENTIAL 11/11/2010 SALLY FLANGER, VALERIE S 401.1 HYPERTENSION, BENIGN ESSENTIAL 11/11/2010 [...] (3 Yrs And Above, Im) 03/09/2011 SALLY FLANGER, VALERIE S V04.81 Flu Dx (3 Yrs And Above, Im) 03/09/2011 YATES DO, KARO K V04.81 Flu Dx (3 Yrs And Above, Im) 03/09/2011 SALLY FLANGER, VALERIE S V04.81 Flu Dx (3 Yrs And Above, Im) 03/09/2011 YATES DO, KARO K V04.81 Flu Dx (3 Yrs And Above, Im) 03/09/2011 SALLY FLANGER, VALERIE S V04.81 Flu Dx (3 Yrs And Above, Im) 03/09/2011 SALLY FLANGER, VALERIE S V04.81 Flu Dx (3 Yrs And Above, Im) 03/09/2011 SALLY FLANGER, VALERIE S V04.81 Flu Dx (3 Yrs And Above, Im) 03/09/2011 SALLY FLANGER, VALERIE S V04.81 Flu Dx (3 Yrs And Above, Im) 03/09/2011 SALLY FLANGER, VALERIE S V04.81 Flu Dx (3 Yrs And Above, Im) 03/09/2011 SALLY FLANGER, VALERIE S V04.81 Flu Dx (3 Yrs And Above, Im) 03/09/2011 SALLY FLANGER, VALERIE S V04.81 Flu Dx (3 Yrs And Above, Im) 03/09/2011 YATES DO, KARO K V04.81 Flu Dx (3 Yrs And Above, Im) 03/09/2011 SALLY FLANGER, VALERIE S V04.81 Flu Dx (3 Yrs And Above, Im) 03/09/2011 YATES DO, KARO K V04.81 Flu Dx (3 Yrs And Above, Im) 03/09/2011 SALLY FLANGER, VALERIE S V04.81 Flu Dx (3 Yrs And Above, Im) 03/09/2011 SALLY FLANGER, VALERIE S V04.81 Flu Dx (3 Yrs And Above, Im) 03/09/2011 SALLY FLANGER, VALERIE S V04.81 Flu Dx (3 Yrs And Above, Im) 03/09/2011 YATES DO, KARO K V04.81 Flu Dx (3 Yrs And Above, Im) 03/09/2011 SALLY FLANGER, VALERIE S V04.81 Flu Dx (3 Yrs And Above, Im) 03/14/2011 YATES DO, KARO K 625.9 Pelvic Pain 03/14/2011 YATES DO, KARO K 791.0 Proteinuria 03/14/2011 YATES DO, KARO K 625.9 Pelvic Pain 03/14/2011 YATES DO, KARO K 791.0 Proteinuria 03/14/2011 ESPAÑA FLANGER, ZORAIDA R 625.9 Pelvic Pain 03/14/2011 ESPAÑA FLANGER, ZORAIDA R 791.0 Proteinuria 03/14/2011 625.9 Pelvic Pain 03/14/2011 791.0 Proteinuria 03/14/2011 SALLY FLANGER, VALERIE S 625.9 Pelvic Pain 03/14/2011 SALLY FLANGER, VALERIE S 791.0 Proteinuria 03/14/2011 YATES DO, KARO K 625.9 Pelvic Pain 03/14/2011 YATES DO, KARO K 791.0 Proteinuria 03/14/2011 SALLY FLANGER, VALERIE S 625.9 Pelvic Pain 03/14/2011 SALLY FLANGER, VALERIE S 791.0 Proteinuria 03/14/2011 SALLY FLANGER, VALERIE S 625.9 Pelvic Pain 03/14/2011 SALLY FLANGER, VALERIE S 791.0 Proteinuria 03/14/2011 YATES DO, KARO K 625.9 Pelvic Pain 03/14/2011 YATES DO, KARO K 791.0 Proteinuria 03/14/2011 625.9 Pelvic Pain 03/14/2011 791.0 Proteinuria 03/14/2011 625.9 Pelvic Pain 03/14/2011 791.0 Proteinuria 03/14/2011 625.9 Pelvic Pain 03/14/2011 791.0 Proteinuria 03/14/2011 MICHELLE CAMARGO MD 625.9 Pelvic Pain 03/14/2011 MICHELLE CAMARGO MD 791.0 Proteinuria 03/14/2011 SALLY FLANGER, VALERIE S 625.9 Pelvic Pain 03/14/2011 SALLY FLANGER, VALERIE S 791.0 Proteinuria 03/14/2011 SALLY FLANGER, VALERIE S 625.9 Pelvic Pain 03/14/2011 SALLY FLANGER, VALERIE S 791.0 Proteinuria 03/14/2011 YATES DO, KARO K 625.9 Pelvic Pain 03/14/2011 YATES DO, KAOR K 791.0 Proteinuria 03/14/2011 SALLY FLANGER, VALERIE S 625.9 Pelvic Pain 03/14/2011 SALLY FLANGER, VALERIE S 791.0 Proteinuria 03/14/2011 YATES DO, KARO K 625.9 Pelvic Pain 03/14/2011 YATES DO, KARO K 791.0 Proteinuria 03/14/2011 SALLY FLANGER, VALERIE S 625.9 Pelvic Pain 03/14/2011 SALLY FLANGER, VALERIE S 791.0 Proteinuria 03/14/2011 SALLY FLANGER, VALERIE S 625.9 Pelvic Pain 03/14/2011 SALLY FLANGER, VALERIE S 791.0 Proteinuria 03/14/2011 SALLY FLANGER, VALERIE S 625.9 Pelvic Pain 03/14/2011 SALLY FLANGER, VALERIE S 791.0 Proteinuria 03/14/2011 SALLY FLANGER, VALERIE S 625.9 Pelvic Pain 03/14/2011 SALLY FLANGER, VALERIE S 791.0 Proteinuria 03/14/2011 SALLY FLANGER, VALERIE S 625.9 Pelvic Pain 03/14/2011 SALLY FLANGER, VALERIE S 791.0 Proteinuria 03/14/2011 SALLY FLANGER, VALERIE S 625.9 Pelvic Pain 03/14/2011 SALLY FLANGER, VALERIE S 791.0 Proteinuria 03/14/2011 SALLY FLANGER, VALERIE S 625.9 Pelvic Pain 03/14/2011 SALLY FLANGER, VALERIE S 791.0 Proteinuria 03/14/2011 YATES DO, KARO K 625.9 Pelvic Pain 03/14/2011 YATES DO, KARO K 791.0 Proteinuria 03/14/2011 SALLY FLANGER, VALERIE S 625.9 Pelvic Pain 03/14/2011 SALLY FLANGER, VALERIE S 791.0 Proteinuria 03/14/2011 YATES DO, KARO K 625.9 Pelvic Pain 03/14/2011 YATES DO, KARO K 791.0 Proteinuria 03/14/2011 SALLY FLANGER, VALERIE S 625.9 Pelvic Pain 03/14/2011 SALLY FLANGER, VALERIE S 791.0 Proteinuria 03/14/2011 SALLY FLANGER, VALERIE S 625.9 Pelvic Pain 03/14/2011 SALLY FLANGER, AVLERIE S 791.0 Proteinuria 03/14/2011 SALLY FLANGER, VALERIE S 625.9 Pelvic Pain 03/14/2011 SALLY FLANGER, VALERIE S 791.0 Proteinuria 03/14/2011 YATES DO, KARO K 625.9 Pelvic Pain 03/14/2011 YATES DO, KARO K 791.0 Proteinuria 03/14/2011 SALLY FLANGER, VALERIE S 625.9 Pelvic Pain 03/14/2011 SALLY FLANGER, VALERIE S 791.0 Proteinuria 04/26/2011 Ot 614.6 [...] S 789.07 ABDOMINAL PAIN GENERALIZED 05/20/2011 SALLY FLANGER, VALERIE S 300.02 AN GEN ANXIETY 05/20/2011 [...] S 300.02 AN GEN ANXIETY 05/20/2011 SALLY FLANGER, VALERIE S 789.07 ABDOMINAL PAIN GENERALIZED 05/20/2011 SALLY FLANGER, VALERIE S 300.02 AN GEN ANXIETY 05/20/2011 SALLY FLANGER, VALERIE S 789.07 ABDOMINAL PAIN GENERALIZED 05/20/2011 SALLY FLANGER, VALERIE S 300.02 AN GEN ANXIETY 05/20/2011 SALLY FLANGER, VALERIE S 789.07 ABDOMINAL PAIN GENERALIZED 05/20/2011 SALLY PERSAUDN VALERIE S 300.02 AN GEN ANXIETY 05/20/2011 SALLY FLANGER, VALERIE S 789.07 ABDOMINAL PAIN GENERALIZED 05/20/2011 YATES DO, KARO K 300.02 AN GEN ANXIETY 05/20/2011 YATES DO, KARO K 789.07 ABDOMINAL PAIN GENERALIZED 05/20/2011 SALLY PERSAUDN VALERIE S 300.02 AN GEN ANXIETY 05/20/2011 SALLY FLANGER VALERIE S 789.07 ABDOMINAL PAIN GENERALIZED 05/20/2011 YATES DO, KARO K 300.02 AN GEN ANXIETY 05/20/2011 YATES DO, KARO K 789.07 ABDOMINAL PAIN GENERALIZED 05/20/2011 SALLY PERSAUDN, VALERIE S 300.02 AN GEN ANXIETY 05/20/2011 SALLYMARTY PERSAUDN, VALERIE S 789.07 ABDOMINAL PAIN GENERALIZED 05/20/2011 SALLYMARTY PERSAUDN VALERIE S 300.02 AN GEN ANXIETY 05/20/2011 SALLY FLANGER VALERIE S 789.07 ABDOMINAL PAIN GENERALIZED 05/20/2011 SALLY FLANGER VALERIE S 300.02 AN GEN ANXIETY 05/20/2011 SALLY PERSAUDN VALERIE S 789.07 ABDOMINAL PAIN GENERALIZED 05/20/2011 YATES DO, KARO K 300.02 AN GEN ANXIETY 05/20/2011 YATES DO, KARO K 789.07 ABDOMINAL PAIN GENERALIZED 05/20/2011 SALLY PERSAUDN VALERIE S 300.02 AN GEN ANXIETY 05/20/2011 SALLY FLANGER, VALERIE S 789.07 ABDOMINAL PAIN GENERALIZED 06/09/2011 YATES DO, KARO K 796.2 Elevated Blood Pressure Reading Without Diagnosis Of Hypertension 06/09/2011 YATES DO, KARO K 796.2 Elevated Blood Pressure Reading Without Diagnosis Of Hypertension 06/09/2011 TACO RIVERA ZORAIDA R 796.2 Elevated Blood Pressure Reading Without Diagnosis Of Hypertension 06/09/2011 796.2 Elevated Blood Pressure Reading Without Diagnosis Of Hypertension 06/09/2011 SALLY FLANGER, VALERIE S 796.2 Elevated Blood Pressure Reading Without Diagnosis Of Hypertension 06/09/2011 YATES DO KARO K 796.2 Elevated Blood Pressure Reading Without Diagnosis Of Hypertension 06/09/2011 SALLY FLANGER, VALERIE S 796.2 Elevated Blood Pressure Reading Without Diagnosis Of Hypertension 06/09/2011 SALLY FLANGER, VALERIE S 796.2 Elevated Blood Pressure Reading [...] Reading Without Diagnosis Of Hypertension 06/09/2011 SALLY FLANGER, VALERIE S 796.2 Elevated Blood Pressure Reading Without Diagnosis Of Hypertension 06/09/2011 SALLY FLANGER, VALERIE S 796.2 Elevated Blood Pressure Reading Without Diagnosis Of Hypertension 06/09/2011 YATES DO KARO K 796.2 Elevated Blood Pressure Reading Without Diagnosis Of Hypertension 06/09/2011 SALLY FLANGER, VALERIE S 796.2 Elevated Blood Pressure Reading Without Diagnosis Of Hypertension 06/09/2011 MILAN RAMIREZ KARO K 796.2 Elevated Blood Pressure Reading Without Diagnosis Of Hypertension 06/09/2011 SALLY FLANGER, VALERIE S 796.2 Elevated Blood Pressure Reading Without Diagnosis Of Hypertension 06/09/2011 SALLY FLANGER, VALERIE S 796.2 Elevated Blood Pressure Reading Without Diagnosis Of Hypertension 06/09/2011 SALLY FLANGER, VALERIE S 796.2 Elevated Blood Pressure Reading Without Diagnosis Of Hypertension 06/09/2011 SALLY FLANGER, VALERIE S 796.2 Elevated Blood Pressure Reading Without Diagnosis Of Hypertension 06/09/2011 SALLY FLANGER, VALERIE S 796.2 Elevated Blood Pressure Reading [...] 07/12/2011 338.4 CHRONIC PAIN SYNDROME 07/12/2011 SALLY FLANGER, VALERIE S 338.4 CHRONIC PAIN SYNDROME 07/12/2011 YATES DO, KARO K 338.4 CHRONIC PAIN SYNDROME 07/12/2011 SALLY FLANGER, VALERIE S 338.4 CHRONIC PAIN SYNDROME 07/12/2011 SALLY FLANGER, VALERIE S 338.4 CHRONIC PAIN SYNDROME 07/12/2011 YATES DO, KARO K 338.4 CHRONIC PAIN SYNDROME 07/12/2011 338.4 CHRONIC PAIN SYNDROME 07/12/2011 338.4 CHRONIC PAIN SYNDROME 07/12/2011 338.4 CHRONIC PAIN SYNDROME 07/12/2011 MARY JO ABRAMS, MICHELLE 338.4 CHRONIC PAIN SYNDROME 07/12/2011 SALLY FLANGER, VALERIE S 338.4 CHRONIC PAIN SYNDROME 07/12/2011 SALLY FLANGER, VALERIE S 338.4 CHRONIC PAIN SYNDROME 07/12/2011 YATES DO, KARO K 338.4 CHRONIC PAIN SYNDROME 07/12/2011 SALLY FLANGER, VALERIE S 338.4 CHRONIC PAIN SYNDROME 07/12/2011 YATES DO, KARO K 338.4 CHRONIC PAIN SYNDROME 07/12/2011 SALLY FLANGER, VALERIE S 338.4 CHRONIC PAIN SYNDROME 07/12/2011 SALLY FLANGER, VALERIE S 338.4 CHRONIC PAIN SYNDROME 07/12/2011 SALLY FLANGER, VALERIE S 338.4 CHRONIC PAIN SYNDROME 07/12/2011 SALLY FLANGER, VALERIE S 338.4 CHRONIC PAIN SYNDROME 07/12/2011 SALLY FLANGER, VALERIE S 338.4 CHRONIC PAIN SYNDROME 07/12/2011 SALLY FLANGER, VALERIE S 338.4 CHRONIC PAIN SYNDROME 07/12/2011 SALLY FLANGER, VALERIE S 338.4 CHRONIC PAIN SYNDROME 07/12/2011 YATES DO, KARO K 338.4 CHRONIC PAIN SYNDROME 07/12/2011 SALLY FLANGER, VALERIE S 338.4 CHRONIC PAIN SYNDROME 07/12/2011 YATES DO, KARO K 338.4 CHRONIC PAIN SYNDROME 07/12/2011 SALLY FLANGER, VALERIE S 338.4 CHRONIC PAIN SYNDROME 07/12/2011 SALLY FLANGER, VALERIE S 338.4 CHRONIC PAIN SYNDROME 07/12/2011 SALLY FLANGER, VALERIE S 338.4 CHRONIC PAIN SYNDROME 07/12/2011 [...] RAMIREZ KARO K 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 09/23/2011 SALLY FLANGER, VALERIE S 735.0 HALLUX VALGUS (ACQUIRED) 09/23/2011 SALLY FLANGER, VALERIE S 735.4 HAMMER TOE (ACQUIRED) 09/23/2011 SALLY FLANGER, VALERIE S 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 09/23/2011 SALLY FLANGER, VALERIE S 735.0 HALLUX VALGUS (ACQUIRED) 09/23/2011 [...] S 735.0 HALLUX VALGUS (ACQUIRED) 09/23/2011 SALLY FLANGER, VALERIE S 735.4 HAMMER TOE (ACQUIRED) 09/23/2011 SALLY FLANGER, VALERIE S 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 09/23/2011 SALLY FLANGER, VALERIE S 735.0 HALLUX VALGUS (ACQUIRED) 09/23/2011 SALLY FLANGER, VALERIE S 735.4 HAMMER TOE (ACQUIRED) 09/23/2011 SALLY FLANGER, VALERIE S 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 09/23/2011 YATES DO, KARO K 735.0 HALLUX VALGUS (ACQUIRED) 09/23/2011 YATES DO, KARO K 735.4 HAMMER TOE (ACQUIRED) 09/23/2011 YATES DO, KARO K 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 09/23/2011 SALLY FLANGER, VALERIE S 735.0 HALLUX VALGUS (ACQUIRED) 09/23/2011 SALLY FLANGER, VALERIE S 735.4 HAMMER TOE (ACQUIRED) 09/23/2011 SALLY FLANGER, VALERIE S 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 09/23/2011 YATES DO, KARO K 735.0 HALLUX VALGUS (ACQUIRED) 09/23/2011 YATES DO, KARO K 735.4 HAMMER TOE (ACQUIRED) 09/23/2011 YATES DO, KARO K 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 09/23/2011 SALLY FLANGER, VALERIE S 735.0 HALLUX VALGUS (ACQUIRED) 09/23/2011 SLALY FLANGER, VALERIE S 735.4 HAMMER TOE (ACQUIRED) 09/23/2011 SALLY FLANGER, VALERIE S 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 09/23/2011 SALLY FLANGER, VALERIE S 735.0 HALLUX VALGUS (ACQUIRED) 09/23/2011 SALLY FLANGER, VALERIE S 735.4 HAMMER TOE (ACQUIRED) 09/23/2011 SALLY FLANGER, VALERIE S 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 09/23/2011 SALLY FLANGER, VALERIE S 735.0 HALLUX VALGUS (ACQUIRED) 09/23/2011 SALLY FLANGER, VALERIE S 735.4 HAMMER TOE (ACQUIRED) 09/23/2011 SALLY FLANGER, VALERIE S 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 09/23/2011 SALLY FLANGER, VALERIE S 735.0 HALLUX VALGUS (ACQUIRED) 09/23/2011 SALLY FLANGER, VALERIE S 735.4 HAMMER TOE (ACQUIRED) 09/23/2011 SALLY FLANGER, VALERIE S 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 09/23/2011 SALLY FLANGER, VALERIE S 735.0 HALLUX VALGUS (ACQUIRED) 09/23/2011 SALLY FLANGER, VALERIE S 735.4 HAMMER TOE (ACQUIRED) 09/23/2011 SALLY FLANGER, VALERIE S 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 09/23/2011 SALLY FLANGER, VALERIE S 735.0 HALLUX VALGUS (ACQUIRED) 09/23/2011 SALLY FLANGER, VALERIE S 735.4 HAMMER TOE (ACQUIRED) 09/23/2011 SALLY FLANGER, VALERIE S 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 09/23/2011 SALLY FLANGER, VALERIE S 735.0 HALLUX VALGUS (ACQUIRED) 09/23/2011 SALLY FLANGER, VALERIE S 735.4 HAMMER TOE (ACQUIRED) 09/23/2011 SALLY FLANGER, VALERIE S 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 09/23/2011 YATES DO, KARO K 735.0 HALLUX VALGUS (ACQUIRED) 09/23/2011 YATES DO, KARO K 735.4 HAMMER TOE (ACQUIRED) 09/23/2011 YATES DO, KARO K 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 09/23/2011 SALLY FLANGER, VALERIE S 735.0 HALLUX VALGUS (ACQUIRED) 09/23/2011 SALLY FLANGER, VALERIE S 735.4 HAMMER TOE (ACQUIRED) 09/23/2011 SALLY FLANGER, VALERIE S 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 09/23/2011 YATES DO, KARO K 735.0 HALLUX VALGUS (ACQUIRED) 09/23/2011 YATES DO, KARO K 735.4 HAMMER TOE (ACQUIRED) 09/23/2011 YATES DO, KARO K 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 09/23/2011 SALLY FLANGER, VALERIE S 735.0 HALLUX VALGUS (ACQUIRED) 09/23/2011 SALLY FLANGER, VALERIE S 735.4 HAMMER TOE (ACQUIRED) 09/23/2011 SALLY FLANGER, VALERIE S 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 09/23/2011 SALLY FLANGER, VALERIE S 735.0 HALLUX VALGUS (ACQUIRED) 09/23/2011 SALLY FLANGER, VALERIE S 735.4 HAMMER TOE (ACQUIRED) 09/23/2011 SALLY FLANGER, VALERIE S 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 09/23/2011 SALLY FLANGER, VALERIE S 735.0 HALLUX VALGUS (ACQUIRED) 09/23/2011 SALLY FLANGER, VALERIE S 735.4 HAMMER TOE (ACQUIRED) 09/23/2011 SALLY FLANGER, VALERIE S 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 09/23/2011 YATES DO, KARO K 735.0 HALLUX VALGUS (ACQUIRED) 09/23/2011 YATES DO, KARO K 735.4 HAMMER TOE (ACQUIRED) 09/23/2011 YATES DO, KARO K 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 09/23/2011 SALLY FLANGER, VALERIE S 735.0 HALLUX VALGUS (ACQUIRED) 09/23/2011 SALLY FLANGER, VALERIE S 735.4 HAMMER TOE (ACQUIRED) 09/23/2011 SALLY FLANGER, VALERIE S 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 11/18/2011 YATES DO, KARO K 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 11/18/2011 YATES DO, KARO K 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 11/18/2011 ZORAIDA ESPAÑA APRN R 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 11/18/2011 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 11/18/2011 SALLY FLANGER, VALERIE S 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 11/18/2011 YATES DO, KARO K 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 11/18/2011 SALLY FLANGER, VALERIE S 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 11/18/2011 SALLY FLANGER, VALERIE S 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 11/18/2011 YATES DO, KARO K 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 11/18/2011 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 11/18/2011 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 11/18/2011 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 11/18/2011 MICHELLE CAMARGO MD 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 11/18/2011 SALLY FLANGER, VALERIE S 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 11/18/2011 SALLY FLANGER, VALERIE S 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 11/18/2011 YATES DO, KARO K 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 11/18/2011 SALLY FLANGER, VALERIE S 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 11/18/2011 YATES DO, KARO K 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 11/18/2011 SALLY FLANGER, VALERIE S 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 11/18/2011 SALLY FLANGER, VALREIE S 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 11/18/2011 SALLY FLANGER, VALERIE S 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 11/18/2011 SALLY FLANGER, VALERIE S 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 11/18/2011 SALLY FLANGER, VALERIE S 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 11/18/2011 SALLY FLANGER, VALERIE S 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 11/18/2011 SALLY FLANGER, VALERIE S 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 11/18/2011 YATES DO, KARO K 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 11/18/2011 SALLY FLANGER, VALERIE S 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 11/18/2011 YATES DO, KARO K 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 11/18/2011 SALLY FLANGER, VALERIE S 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 11/18/2011 SALLY FLANGER, VALERIE S 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 11/18/2011 SALLY FLANGER, VALERIE S 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 11/18/2011 YATES DO, KARO K 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 11/18/2011 SALLY FLANGER, VALERIE S 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 12/05/2011 Ot 789.00 ABDOMINAL PAIN, UNSPECIFIED SITE 01/20/2012 YATES DO, KARO K 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 01/20/2012 YATES DO, KARO K 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 01/20/2012 ZORAIDA ESPAÑA APRN 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 01/20/2012 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 01/20/2012 SALLY RIVERA VLAERIE S 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 01/20/2012 YATES [...] S 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 01/20/2012 SALLY FLANGER, VALERIE S 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 01/20/2012 YATES DO, KARO K 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 01/20/2012 SALLY FLANGER, VALERIE S 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 01/20/2012 YATES DO, KARO K 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 01/20/2012 SALLY RIVERA VALERIE S 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 01/20/2012 SALLY FLANGER, VALERIE S 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 01/20/2012 SALLY FLANGER, VALERIE S 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 01/20/2012 SALLY FLANGER, VALERIE S 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 01/20/2012 SALLY FLANGER, VALERIE S 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 01/20/2012 SALLY FLANGER, VALERIE S 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 01/20/2012 SALLY FLANGER, VALERIE S 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 01/20/2012 YATES DO, KARO K 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 01/20/2012 SALLY FLANGER, VALERIE S 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 01/20/2012 YATES DO, KARO K 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 01/20/2012 SALLY FLANGER, VALERIE S 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 01/20/2012 SALLY FLANGER, VALERIE S 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 01/20/2012 SALLY FLANGER, VALERIE S 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 01/20/2012 YATES DO, KARO K 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 01/20/2012 SALLY FLANGER, VALERIE S 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 02/09/2012 [...] APRNA S V03.82 PPV23 (PNEUMOVAX) DX 02/09/2012 ESRINA ZAVALA APRNNDA S V03.82 PPV23 (PNEUMOVAX) DX [...] AT A HEALTH CARE FACILITY 02/14/2012 SALLY FLANGERADRIAN TalleyA S V70.0 ROUTINE GENERAL MEDICAL EXAMINATION AT A HEALTH CARE FACILITY 02/14/2012 SALLY FLANGERSERINA TalleyNDA S V70.0 ROUTINE GENERAL MEDICAL EXAMINATION AT A HEALTH CARE FACILITY 02/14/2012 SERINA ZAVALA APRNNDA S V70.0 ROUTINE GENERAL MEDICAL EXAMINATION AT A HEALTH CARE FACILITY 02/14/2012 SERINA ZAVALA APRNNDA S V70.0 ROUTINE GENERAL MEDICAL EXAMINATION AT A HEALTH CARE FACILITY 02/14/2012 SALLY FLANGERSERINA TalleyNDA S V70.0 ROUTINE GENERAL MEDICAL EXAMINATION [...] K 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 03/16/2012 ESPAÑA FLANGER, ZORAIDA R 719.07 EDEMA FOOT 03/16/2012 ESPAÑA FLANGER, ZORAIDA R 726.90 CAPSULITIS 03/16/2012 ESPAÑA FLANGER, ZORAIDA R 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 03/16/2012 719.07 EDEMA FOOT 03/16/2012 726.90 CAPSULITIS 03/16/2012 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 03/16/2012 SALLY FLANGER, VALERIE S 719.07 EDEMA FOOT 03/16/2012 SALLY FLANGER, VALERIE S 726.90 CAPSULITIS 03/16/2012 SALLY FLANGER, VALERIE S 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 03/16/2012 YATES DO, KARO K 719.07 EDEMA FOOT 03/16/2012 YATES DO, KARO K 726.90 CAPSULITIS 03/16/2012 YATES DO, KARO K 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 03/16/2012 SALLY FLANGER, VALERIE S 719.07 EDEMA FOOT 03/16/2012 SALLY FLANGER, VALERIE S 726.90 CAPSULITIS 03/16/2012 SALLY FLANGER, VALERIE S 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 03/16/2012 SALLY FLANGER, VALERIE S 719.07 EDEMA FOOT 03/16/2012 SALLY FLANGER, VALERIE S 726.90 CAPSULITIS 03/16/2012 SALLY FLANGER, VALERIE S 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 03/16/2012 [...] RIVERA VALERIE S 726.90 CAPSULITIS 03/16/2012 SALLY FLANGER, VALERIE S 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 03/16/2012 SALLY FLANGER, VALERIE S 719.07 EDEMA FOOT 03/16/2012 SALLY RIVERA, VALERIE S 726.90 CAPSULITIS 03/16/2012 SALLY FLANGER, VALERIE S 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 03/16/2012 [...] K 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 03/16/2012 SALLY FLANGER, VALERIE S 719.07 EDEMA FOOT 03/16/2012 SALLY FLANGER, VALERIE S 726.90 CAPSULITIS 03/16/2012 SALLY FLANGER, VALERIE S 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 03/16/2012 SALLY FLANGER, VALERIE S 719.07 EDEMA FOOT 03/16/2012 SALLY FLANGER, VALERIE S 726.90 CAPSULITIS 03/16/2012 SALLY FLANGER, VALERIE S 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 03/16/2012 SALLY FLANGER, VALERIE S 719.07 EDEMA FOOT 03/16/2012 SALLY FLANGER, VALERIE S 726.90 CAPSULITIS 03/16/2012 SALLY FLANGER, VALERIE S 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 03/16/2012 SALLY FLANGER, VALERIE S 719.07 EDEMA FOOT 03/16/2012 SALLY FLANGER, VALERIE S 726.90 CAPSULITIS 03/16/2012 SALLY FLANGER, VALERIE S 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 03/16/2012 SALLY FLANGER, VALERIE S 719.07 EDEMA FOOT 03/16/2012 SALLY FLANGER, VALERIE S 726.90 CAPSULITIS 03/16/2012 SALLY FLANGER, VALERIE S 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 03/16/2012 SALLY FLANGER, VALERIE S 719.07 EDEMA FOOT 03/16/2012 SALLY FLANGER, VALERIE S 726.90 CAPSULITIS 03/16/2012 SALLY FLANGER, VALERIE S 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 03/16/2012 SALLY FLANGER, VALERIE S 719.07 EDEMA FOOT 03/16/2012 SALLY FLANGER, VALERIE S 726.90 CAPSULITIS 03/16/2012 SALLY FLANGER, VALERIE S 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 03/16/2012 YATES DO, KARO K 719.07 EDEMA FOOT 03/16/2012 YATES DO, KARO K 726.90 CAPSULITIS 03/16/2012 YATES DO, KARO K 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 03/16/2012 SALLY FLANGER, VALERIE S 719.07 EDEMA FOOT 03/16/2012 SALLY FLANGER, VALERIE S 726.90 CAPSULITIS 03/16/2012 SALLY FLANGER, VALERIE S 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 03/16/2012 YATES DO, KARO K 719.07 EDEMA FOOT 03/16/2012 YATES DO, KARO K 726.90 CAPSULITIS 03/16/2012 YATES DO, KARO K 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 03/16/2012 SALLY FLANGER, VALERIE S 719.07 EDEMA FOOT 03/16/2012 SALLY FLANGER, VALERIE S 726.90 CAPSULITIS 03/16/2012 SALLY FLANGER, VALERIE S 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 03/16/2012 SALLY FLANGER, VALERIE S 719.07 EDEMA FOOT 03/16/2012 SALLY FLANGER, VALERIE S 726.90 CAPSULITIS 03/16/2012 SALLY FLANGER, VALERIE S 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 03/16/2012 SALLY FLANGER, VALERIE S 719.07 EDEMA FOOT 03/16/2012 SALLY FLANGER, VALERIE S 726.90 CAPSULITIS 03/16/2012 SALLY FLANGER, VALERIE S 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 03/16/2012 YATES DO, KARO K 719.07 EDEMA FOOT 03/16/2012 YATES DO, KARO K 726.90 CAPSULITIS 03/16/2012 YATES DO, KARO K 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 03/16/2012 SALLY FLANGER, VALERIE S 719.07 EDEMA FOOT 03/16/2012 SALLY FLANGER, VALERIE S 726.90 CAPSULITIS 03/16/2012 SALLY FLANGER, VALERIE S 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 03/30/2012 YATES DO KARO K V45.89 POSTSURGICAL STATUS 03/30/2012 YATES DO KARO K V45.89 POSTSURGICAL STATUS 03/30/2012 ESPAÑA FLANGER, ZORAIDA R V45.89 POSTSURGICAL STATUS 03/30/2012 V45.89 POSTSURGICAL STATUS 03/30/2012 SALLY FLANGER, VALERIE S V45.89 POSTSURGICAL STATUS 03/30/2012 YATES DO KARO K V45.89 POSTSURGICAL STATUS 03/30/2012 SALLY FLANGER, VALERIE S V45.89 POSTSURGICAL STATUS 03/30/2012 SALLY FLANGER, VALERIE S V45.89 POSTSURGICAL STATUS 03/30/2012 YATES DO KAOR K V45.89 POSTSURGICAL STATUS 03/30/2012 V45.89 POSTSURGICAL STATUS 03/30/2012 V45.89 POSTSURGICAL STATUS 03/30/2012 V45.89 POSTSURGICAL STATUS 03/30/2012 MICHELLE CAMARGO MD V45.89 POSTSURGICAL STATUS 03/30/2012 SALLY FLANGER, VALERIE S V45.89 POSTSURGICAL STATUS 03/30/2012 SALLY FLANGER, VALERIE S V45.89 POSTSURGICAL STATUS 03/30/2012 YATES DO KARO K V45.89 POSTSURGICAL STATUS 03/30/2012 SALLY FLANGER, VALERIE S V45.89 POSTSURGICAL STATUS 03/30/2012 YATES DO KARO K V45.89 POSTSURGICAL STATUS 03/30/2012 SALLY FLANGER, VALERIE S V45.89 POSTSURGICAL STATUS 03/30/2012 SALLY FLANGER, VALERIE S V45.89 POSTSURGICAL STATUS 03/30/2012 SALLY FLANGER, VALERIE S V45.89 POSTSURGICAL STATUS 03/30/2012 SALLY FLANGER, VALERIE S V45.89 POSTSURGICAL STATUS 03/30/2012 SALLY FLANGER, VALERIE S V45.89 POSTSURGICAL STATUS 03/30/2012 SALLY FLANGER, VALERIE S V45.89 POSTSURGICAL STATUS 03/30/2012 SALLY FLANGER, VALERIE S V45.89 POSTSURGICAL STATUS 03/30/2012 YATES DO KARO K V45.89 POSTSURGICAL STATUS 03/30/2012 SALLY FLANGER, VALERIE S V45.89 POSTSURGICAL STATUS 03/30/2012 YATES DO, KARO K V45.89 POSTSURGICAL STATUS 03/30/2012 SALLY FLANGER, VALERIE S V45.89 POSTSURGICAL STATUS 03/30/2012 SALLY FLANGER, VALERIE S V45.89 POSTSURGICAL STATUS 03/30/2012 SALLY FLANGER, VALERIE S V45.89 POSTSURGICAL STATUS 03/30/2012 YATES DO, KARO K V45.89 POSTSURGICAL STATUS 03/30/2012 SALLY FLANGER, VALERIE S V45.89 POSTSURGICAL STATUS 05/29/2012 TACO FLANGER, ZORAIDA R 786.2 cough 05/29/2012 786.2 cough 05/29/2012 SALLY FLANGER, VALERIE S 786.2 cough 05/29/2012 YATES DO, KARO K 786.2 cough 05/29/2012 SALLY FLANGER, VALERIE S 786.2 cough 05/29/2012 SALLY FLANGER, VALERIE S 786.2 cough 05/29/2012 YATES DO KARO K 786.2 cough 05/29/2012 786.2 cough 05/29/2012 786.2 COUGH 05/29/2012 786.2 COUGH 05/29/2012 MICHELLE CAMARGO MD 786.2 COUGH 05/29/2012 SALLY FLANGER, VALERIE S 786.2 COUGH 05/29/2012 SALLY FLANGER, VALERIE S 786.2 COUGH 05/29/2012 YATES DO, KARO K 786.2 COUGH 05/29/2012 SALLY FLANGER, VALERIE S 786.2 COUGH 05/29/2012 YATES DO, KARO K 786.2 COUGH 05/29/2012 SALLY FLANGER, VALERIE S 786.2 COUGH 05/29/2012 SALLY FLANGER, VALERIE S 786.2 COUGH 05/29/2012 SALLY FLANGER, VALERIE S 786.2 COUGH 05/29/2012 SALLY FLANGER, VALERIE S 786.2 COUGH 05/29/2012 SALLY FLANGER, VALERIE S 786.2 COUGH 05/29/2012 SALLY FLANGER, VALERIE S 786.2 COUGH 05/29/2012 SALLY FLANGER, VALERIE S 786.2 COUGH 05/29/2012 YATES DO, KARO K 786.2 COUGH 05/29/2012 SALLY FLANGER, VALERIE S 786.2 COUGH 05/29/2012 YATES DO, KARO K 786.2 COUGH 05/29/2012 SALLY FLANGER, VALERIE S 786.2 COUGH 05/29/2012 SALYL FLANGER, VALERIE S 786.2 COUGH 05/29/2012 SALLY FLANGER, VALERIE S 786.2 COUGH 05/29/2012 YATES DO, KARO K 786.2 COUGH 05/29/2012 SALLY FLANGER, VALERIE S 786.2 COUGH 06/05/2012 461.9 SINUSITIS ACUTE 06/05/2012 SALLY FLANGER, VALERIE S 461.9 SINUSITIS ACUTE 06/05/2012 YATES DO, KARO K 461.9 SINUSITIS ACUTE 06/05/2012 SALLY FLANGER, VALERIE S 461.9 SINUSITIS ACUTE 06/05/2012 SALLY FLANGER, VALERIE S 461.9 SINUSITIS ACUTE 06/05/2012 YATES DO KARO K 461.9 SINUSITIS ACUTE 06/05/2012 461.9 SINUSITIS ACUTE 06/05/2012 461.9 SINUSITIS ACUTE 06/05/2012 461.9 SINUSITIS ACUTE 06/05/2012 MICHELLE CAMARGO MD 461.9 SINUSITIS ACUTE 06/05/2012 SALLY FLANGER, VALERIE S 461.9 SINUSITIS ACUTE 06/05/2012 SALLY FLANGER, VALERIE S 461.9 SINUSITIS ACUTE 06/05/2012 YATES DO KARO K 461.9 SINUSITIS ACUTE 06/05/2012 SALLY FLANGER, VALERIE S 461.9 SINUSITIS ACUTE 06/05/2012 YATES DO, KARO K 461.9 SINUSITIS ACUTE 06/05/2012 SALLY FLANGER, VALERIE S 461.9 SINUSITIS ACUTE 06/05/2012 SALLY FLANGER, VALERIE S 461.9 SINUSITIS ACUTE 06/05/2012 SALLY FLANGER, VALERIE S 461.9 SINUSITIS ACUTE 06/05/2012 SALLY FLANGER, VALERIE S 461.9 SINUSITIS ACUTE 06/05/2012 SALLY FLANGER, VALERIE S 461.9 SINUSITIS ACUTE 06/05/2012 SALLY FLANGER, VALERIE S 461.9 SINUSITIS ACUTE 06/05/2012 ASLLY FLANGER, VALERIE S 461.9 SINUSITIS ACUTE 06/05/2012 HALEY YATES DOA K 461.9 SINUSITIS ACUTE 06/05/2012 SALLY FLANGER, VALERIE S 461.9 SINUSITIS ACUTE 06/05/2012 HALEY YATES DOA K 461.9 SINUSITIS ACUTE 06/05/2012 SALLY FLANGER, VALERIE S 461.9 SINUSITIS ACUTE 06/05/2012 SALLY FLANGER, VALERIE S 461.9 SINUSITIS ACUTE 06/05/2012 SALLY FLANGER, VALERIE S 461.9 SINUSITIS ACUTE 06/05/2012 HALEY YATES DOA K 461.9 SINUSITIS ACUTE 06/05/2012 SALLY FLANGER, VALERIE S 461.9 SINUSITIS ACUTE 07/04/2012 SALLY FLANGER, VALERIE S 535.50 UNSPECIFIED GASTRITIS AND GASTRODUODENITIS (WITHOUT HEMORRHAGE) 07/04/2012 SALLY FLANGER, VALERIE S 535.50 UNSPECIFIED GASTRITIS AND GASTRODUODENITIS (WITHOUT HEMORRHAGE) 07/04/2012 KARO YATES DO 535.50 UNSPECIFIED GASTRITIS AND GASTRODUODENITIS (WITHOUT HEMORRHAGE) 07/04/2012 535.50 UNSPECIFIED GASTRITIS AND GASTRODUODENITIS (WITHOUT HEMORRHAGE) 07/04/2012 535.50 UNSPECIFIED GASTRITIS AND GASTRODUODENITIS (WITHOUT HEMORRHAGE) 07/04/2012 535.50 UNSPECIFIED GASTRITIS AND GASTRODUODENITIS (WITHOUT HEMORRHAGE) 07/04/2012 MICHELLE CAMARGO MD 535.50 UNSPECIFIED GASTRITIS AND GASTRODUODENITIS (WITHOUT HEMORRHAGE) 07/04/2012 SALLY FLANGER, VALERIE S 535.50 UNSPECIFIED GASTRITIS AND GASTRODUODENITIS (WITHOUT HEMORRHAGE) 07/04/2012 SALLY FLANGER, VALERIE S 535.50 UNSPECIFIED GASTRITIS AND GASTRODUODENITIS (WITHOUT HEMORRHAGE) 07/04/2012 KARO YATES DO 535.50 UNSPECIFIED GASTRITIS AND GASTRODUODENITIS (WITHOUT HEMORRHAGE) 07/04/2012 SALLY FLANGER, VALERIE S 535.50 UNSPECIFIED GASTRITIS AND GASTRODUODENITIS (WITHOUT HEMORRHAGE) 07/04/2012 YATES DO KARO K 535.50 UNSPECIFIED GASTRITIS AND GASTRODUODENITIS (WITHOUT HEMORRHAGE) 07/04/2012 SALLY FLANGER, VALERIE S 535.50 UNSPECIFIED GASTRITIS AND GASTRODUODENITIS (WITHOUT HEMORRHAGE) 07/04/2012 SALLY FLANGER, VALERIE S 535.50 UNSPECIFIED GASTRITIS AND GASTRODUODENITIS (WITHOUT HEMORRHAGE) 07/04/2012 SALLY FLANGER, VALERIE S 535.50 UNSPECIFIED GASTRITIS AND GASTRODUODENITIS (WITHOUT HEMORRHAGE) 07/04/2012 SALLY FLANGER, VALERIE S 535.50 UNSPECIFIED GASTRITIS AND GASTRODUODENITIS (WITHOUT HEMORRHAGE) 07/04/2012 SALLY FLANGER, VALERIE S 535.50 UNSPECIFIED GASTRITIS AND GASTRODUODENITIS (WITHOUT HEMORRHAGE) 07/04/2012 SALLY FLANGER, VALERIE S 535.50 UNSPECIFIED GASTRITIS AND GASTRODUODENITIS (WITHOUT HEMORRHAGE) 07/04/2012 SALLY FLANGER, VALERIE S 535.50 UNSPECIFIED GASTRITIS AND GASTRODUODENITIS (WITHOUT HEMORRHAGE) 07/04/2012 YATES DO KARO K 535.50 UNSPECIFIED GASTRITIS AND GASTRODUODENITIS (WITHOUT HEMORRHAGE) 07/04/2012 SALLY FLANGER, VALERIE S 535.50 UNSPECIFIED GASTRITIS AND GASTRODUODENITIS (WITHOUT HEMORRHAGE) 07/04/2012 YATES DO KARO K 535.50 UNSPECIFIED GASTRITIS AND GASTRODUODENITIS (WITHOUT HEMORRHAGE) 07/04/2012 SALLY FLANGER, VALERIE S 535.50 UNSPECIFIED GASTRITIS AND GASTRODUODENITIS (WITHOUT HEMORRHAGE) 07/04/2012 SALLY FLANGER, VALERIE S 535.50 UNSPECIFIED GASTRITIS AND GASTRODUODENITIS (WITHOUT HEMORRHAGE) 07/04/2012 SALLY FLANGER, VALERIE S 535.50 UNSPECIFIED GASTRITIS AND GASTRODUODENITIS (WITHOUT HEMORRHAGE) 07/04/2012 YATES DO KARO K 535.50 UNSPECIFIED GASTRITIS AND GASTRODUODENITIS (WITHOUT HEMORRHAGE) 07/04/2012 SALLY FLANGER, VALERIE S 535.50 UNSPECIFIED GASTRITIS AND GASTRODUODENITIS (WITHOUT HEMORRHAGE) 07/30/2012 SALLY FLANGER, VALERIE S 788.1 DYSURIA 07/30/2012 YATES DO, KARO K 788.1 DYSURIA 07/30/2012 788.1 DYSURIA 07/30/2012 788.1 DYSURIA 07/30/2012 788.1 DYSURIA 07/30/2012 MICHELLE CAMARGO MD 788.1 DYSURIA 07/30/2012 SALLY FLANGER, VALERIE S 788.1 DYSURIA 07/30/2012 SALLY FLANGER, VALERIE S 788.1 DYSURIA 07/30/2012 YATES DO, KARO K 788.1 DYSURIA 07/30/2012 SALLY FLANGER, VALERIE S 788.1 DYSURIA 07/30/2012 YATES DO, KARO K 788.1 DYSURIA 07/30/2012 SALLY FLANGER, VALERIE S 788.1 DYSURIA 07/30/2012 SALLY FLANGER, VALERIE S 788.1 DYSURIA 07/30/2012 SALLY FLANGER, VALERIE S 788.1 DYSURIA 07/30/2012 SALLY FLANGER, VALERIE S 788.1 DYSURIA 07/30/2012 SALLY FLANGER, VALERIE S 788.1 DYSURIA 07/30/2012 SALLY FLANGER, VALERIE S 788.1 DYSURIA 07/30/2012 SALLY FLANGER, VALERIE S 788.1 DYSURIA 07/30/2012 YATES DO, KARO K 788.1 DYSURIA 07/30/2012 SALLY FLANGER, VALERIE S 788.1 DYSURIA 07/30/2012 YATES DO, KARO K 788.1 DYSURIA 07/30/2012 SALLY FLANGER, VALERIE S 788.1 DYSURIA 07/30/2012 SALLY FLANGER, VALERIE S 788.1 DYSURIA 07/30/2012 SALLY FLANGER, VALERIE S 788.1 DYSURIA 07/30/2012 YATES DO, KARO K 788.1 DYSURIA 07/30/2012 SALLY FLANGER, VALERIE S 788.1 DYSURIA 02/04/2013 MARY JO ABRAMS, MICHELLE 719.40 ARTHRAIGIA UNSPEC 02/04/2013 SALLY FLANGER, VALERIE S 719.40 ARTHRAIGIA UNSPEC 02/04/2013 SALLY FLANGER, VALERIE S 719.40 ARTHRAIGIA UNSPEC 02/04/2013 YTAES DO, KARO K 719.40 ARTHRAIGIA UNSPEC 02/04/2013 SALLY FLANGER, VALERIE S 719.40 ARTHRAIGIA UNSPEC 02/04/2013 YATES DO, KARO K 719.40 ARTHRAIGIA UNSPEC 02/04/2013 SALLY FLANGER, VALERIE S 719.40 ARTHRAIGIA UNSPEC 02/04/2013 SALLY FLANGER, VALERIE S 719.40 ARTHRAIGIA UNSPEC 02/04/2013 SALLY FLANGER, VALERIE S 719.40 ARTHRAIGIA UNSPEC 02/04/2013 SALLY FLANGER, VALERIE S 719.40 ARTHRAIGIA UNSPEC 02/04/2013 SALLY FLANGER, VALERIE S 719.40 ARTHRAIGIA UNSPEC 02/04/2013 SALLY FLANGER, VALERIE S 719.40 ARTHRAIGIA UNSPEC 02/04/2013 SALLY FLANGER, VALERIE S 719.40 ARTHRAIGIA UNSPEC 02/04/2013 YATES DO, KARO K 719.40 ARTHRAIGIA UNSPEC 02/04/2013 SALLY FLANGER, VALERIE S 719.40 ARTHRAIGIA UNSPEC 02/04/2013 YATES DO, KARO K 719.40 ARTHRAIGIA UNSPEC 02/04/2013 SALLY FLANGER, VALERIE S 719.40 ARTHRAIGIA UNSPEC 02/04/2013 SALLY FLANGER, VALERIE S 719.40 ARTHRAIGIA UNSPEC 02/04/2013 SALLY FLANGER, VALERIE S 719.40 ARTHRAIGIA UNSPEC 02/04/2013 YATES DO, KARO K 719.40 ARTHRAIGIA UNSPEC 02/04/2013 SALLY FLANGER, VALERIE S 719.40 ARTHRAIGIA UNSPEC 04/02/2013 SALLY FLANGER, VALERIE S 786.52 CHEST WALL PAIN 04/02/2013 YATES DO, KARO K 786.52 CHEST WALL PAIN 04/02/2013 SALLY FLANGER, VALERIE S 786.52 CHEST WALL PAIN 04/02/2013 YATES DO, KARO K 786.52 CHEST WALL PAIN 04/02/2013 SALLY FLANGER, VALERIE S 786.52 CHEST WALL PAIN 04/02/2013 SALLY FLANGER, VALERIE S 786.52 CHEST WALL PAIN 04/02/2013 SALLY FLANGER, VALERIE S 786.52 CHEST WALL PAIN 04/02/2013 SALLY FLANGER, VALERIE S 786.52 CHEST WALL PAIN 04/02/2013 SALLY FLANGER, VALERIE S 786.52 CHEST WALL PAIN 04/02/2013 SALLY FLANGER, VALERIE S 786.52 CHEST WALL PAIN 04/02/2013 SALLY FLANGER, VALERIE S 786.52 CHEST WALL PAIN 04/02/2013 YATES DO KARO K 786.52 CHEST WALL PAIN 04/02/2013 SALLY FLANGER, VALERIE S 786.52 CHEST WALL PAIN 04/02/2013 YATES DO, KARO K 786.52 CHEST WALL PAIN 04/02/2013 SALLY FLANGER, VALERIE S 786.52 CHEST WALL PAIN 04/02/2013 SALLY FLANGER, VALERIE S 786.52 CHEST WALL PAIN 04/02/2013 SALLY FLANGER, VALERIE S 786.52 CHEST WALL PAIN 04/02/2013 YATES DO, KARO K 786.52 CHEST WALL PAIN 04/02/2013 SALLY FLANGER, VALERIE S 786.52 CHEST WALL PAIN 04/06/2013 MILAN RAMIREZ KARO K 053.9 HERPES ZOSTER (SHINGLES) 04/06/2013 YATES DO, KARO K 382.00 ACUTE OTITIS MEDIA (LEFT) 04/06/2013 SALLY FLANGER, VALERIE S 053.9 HERPES ZOSTER (SHINGLES) 04/06/2013 SALLY FLANGER, VALERIE S 382.00 ACUTE OTITIS MEDIA (LEFT) 04/06/2013 YATES DO, KARO K 053.9 HERPES ZOSTER (SHINGLES) 04/06/2013 YATES DO, KARO K 382.00 ACUTE OTITIS MEDIA (LEFT) 04/06/2013 SALLY FLANGER, VALERIE S 053.9 HERPES ZOSTER (SHINGLES) 04/06/2013 SALLY FLANGER, VALERIE S 382.00 ACUTE OTITIS MEDIA (LEFT) 04/06/2013 SALLY FLANGER, VALERIE S 053.9 HERPES ZOSTER (SHINGLES) 04/06/2013 SALLY FLANGER, VALERIE S 382.00 ACUTE OTITIS MEDIA (LEFT) 04/06/2013 SALLY FLANGER, VALERIE S 053.9 HERPES ZOSTER (SHINGLES) 04/06/2013 SALLY FLANGER, VALERIE S 382.00 ACUTE OTITIS MEDIA (LEFT) 04/06/2013 SALLY FLANGER, VALERIE S 053.9 HERPES ZOSTER (SHINGLES) 04/06/2013 SALLY FLANGER, VALERIE S 382.00 ACUTE OTITIS MEDIA (LEFT) 04/06/2013 SALLY FLANGER, VALERIE S 053.9 HERPES ZOSTER (SHINGLES) 04/06/2013 SALLY FLANGER, VALERIE S 382.00 ACUTE OTITIS MEDIA (LEFT) 04/06/2013 SALLY FLANGER, VALERIE S 053.9 HERPES ZOSTER (SHINGLES) 04/06/2013 SALLY FLANGER, VALERIE S 382.00 ACUTE OTITIS MEDIA (LEFT) 04/06/2013 SALLY FLANGER, VALERIE S 053.9 HERPES ZOSTER (SHINGLES) 04/06/2013 SALLY FLANGER, VALERIE S 382.00 ACUTE OTITIS MEDIA (LEFT) 04/06/2013 YATES DO, KARO K 053.9 HERPES ZOSTER (SHINGLES) 04/06/2013 YATES DO, KARO K 382.00 ACUTE OTITIS MEDIA (LEFT) 04/06/2013 SLALY FLANGER, VALERIE S 053.9 HERPES ZOSTER (SHINGLES) 04/06/2013 SALLY FLANGER, VALERIE S 382.00 ACUTE OTITIS MEDIA (LEFT) 04/06/2013 YATES DO, KARO K 053.9 HERPES ZOSTER (SHINGLES) 04/06/2013 YATES DO, KARO K 382.00 ACUTE OTITIS MEDIA (LEFT) 04/06/2013 SALLY FLANGER, VALERIE S 053.9 HERPES ZOSTER (SHINGLES) 04/06/2013 SALLY FLANGER, VALERIE S 382.00 ACUTE OTITIS MEDIA (LEFT) 04/06/2013 SALLY FLANGER, VALERIE S 053.9 HERPES ZOSTER (SHINGLES) 04/06/2013 SALLY FLANGER, VALERIE S 382.00 ACUTE OTITIS MEDIA (LEFT) 04/06/2013 SALLY FLANGER, VALERIE S 053.9 HERPES ZOSTER (SHINGLES) 04/06/2013 SALLY FLANGER, VALERIE S 382.00 ACUTE OTITIS MEDIA (LEFT) 04/06/2013 YATES DO, KARO K 053.9 HERPES ZOSTER (SHINGLES) 04/06/2013 YATES DO, KARO K 382.00 ACUTE OTITIS MEDIA (LEFT) 04/06/2013 SALLY FLANGER, VALERIE S 053.9 HERPES ZOSTER (SHINGLES) 04/06/2013 SALLY FLANGER, VALERIE S 382.00 ACUTE OTITIS MEDIA (LEFT) 04/10/2013 SALLY FLANGER, VALERIE S 380.4 CERUMEN IMPACTION 04/10/2013 SALLY FLANGER, VALERIE S V76.12 MAMMOGRAM SCREENING 04/10/2013 YATES DO, KARO K 380.4 CERUMEN IMPACTION 04/10/2013 YATES DO, KARO K V76.12 MAMMOGRAM SCREENING 04/10/2013 SALLY FLANGER, VALERIE S 380.4 CERUMEN IMPACTION 04/10/2013 SALLY FLANGER, VALERIE S V76.12 MAMMOGRAM SCREENING 04/10/2013 SALLY FLANGER, VALERIE S 380.4 CERUMEN IMPACTION 04/10/2013 SALLY FLANGER, VALERIE S V76.12 MAMMOGRAM SCREENING 04/10/2013 SALLY FLANGER, VALERIE S 380.4 CERUMEN IMPACTION 04/10/2013 SALLY FLANGER, VALERIE S V76.12 MAMMOGRAM SCREENING 04/10/2013 SALLY FLANGER, VALERIE S 380.4 CERUMEN IMPACTION 04/10/2013 SALLY FLANGER, VALERIE S V76.12 MAMMOGRAM SCREENING 04/10/2013 SALLY FLANGER, VALERIE S 380.4 CERUMEN IMPACTION 04/10/2013 SALLY FLANGER, VALERIE S V76.12 MAMMOGRAM SCREENING 04/10/2013 SALLY FLANGER, VALERIE S 380.4 CERUMEN IMPACTION 04/10/2013 SALLY FLANGER, VALERIE S V76.12 MAMMOGRAM SCREENING 04/10/2013 SALLY FLANGER, VALERIE S 380.4 CERUMEN IMPACTION 04/10/2013 SALLY FLANGER, VALERIE S V76.12 MAMMOGRAM SCREENING 04/10/2013 YATES DO, KARO K 380.4 CERUMEN IMPACTION 04/10/2013 YATES DO, KARO K V76.12 MAMMOGRAM SCREENING 04/10/2013 SALLY FLANGER, VALERIE S 380.4 CERUMEN IMPACTION 04/10/2013 SALLY FLANGER, VALERIE S V76.12 MAMMOGRAM SCREENING 04/10/2013 YATES DO, KARO K 380.4 CERUMEN IMPACTION 04/10/2013 YATES DO, KARO K V76.12 MAMMOGRAM SCREENING 04/10/2013 SALLY FLANGER, VALERIE S 380.4 CERUMEN IMPACTION 04/10/2013 SALLY FLANGER, VALERIE S V76.12 MAMMOGRAM SCREENING 04/10/2013 SALLY FLANGER, VALERIE S 380.4 CERUMEN IMPACTION 04/10/2013 SALLY FLANGER, VALERIE S V76.12 MAMMOGRAM SCREENING 04/10/2013 SALLY FLANGER, VALERIE S 380.4 CERUMEN IMPACTION 04/10/2013 SALLY FLANGER, VALERIE S V76.12 MAMMOGRAM SCREENING 04/10/2013 YATES DO, KARO K 380.4 CERUMEN IMPACTION 04/10/2013 YATES DO, KARO K V76.12 MAMMOGRAM SCREENING 04/10/2013 SALLY FLANGER, VALERIE S 380.4 CERUMEN IMPACTION 04/10/2013 SALLY FLANGER, VALERIE S V76.12 MAMMOGRAM SCREENING 09/09/2013 SALLY FLANGER, VALERIE S 272.4 HYPERLIPIDEMIA 09/09/2013 SALLY FLANGER, VALERIE S 272.4 HYPERLIPIDEMIA 09/09/2013 SALLY FLANGER, VALERIE S 272.4 HYPERLIPIDEMIA 09/09/2013 SALLY FLANGER, VALERIE S 272.4 HYPERLIPIDEMIA 09/09/2013 YATES DO, KARO K 272.4 HYPERLIPIDEMIA 09/09/2013 SALLY FLANGER, VALERIE S 272.4 HYPERLIPIDEMIA 09/09/2013 YATES DO, KARO K 272.4 HYPERLIPIDEMIA 09/09/2013 SALLY FLANGER, VALERIE S 272.4 HYPERLIPIDEMIA 09/09/2013 SALLY FLANGER, VALERIE S 272.4 HYPERLIPIDEMIA 09/09/2013 SALLY FLANGER, VALERIE S 272.4 HYPERLIPIDEMIA 09/09/2013 YATES DO, KARO K 272.4 HYPERLIPIDEMIA 09/09/2013 SALLY FLANGER, VALERIE S 272.4 HYPERLIPIDEMIA 10/17/2013 SALLY FLANGER, VALERIE S 724.5 BACK PAIN, GENERAL 10/17/2013 SALLY FLANGER, VALERIE S 724.5 BACK PAIN, GENERAL 10/17/2013 SALLY FLANGER, VALERIE S 724.5 BACK PAIN, GENERAL 10/17/2013 YATES DO, KARO K 724.5 BACK PAIN, GENERAL 10/17/2013 SALLY FLANGER, VALERIE S 724.5 BACK PAIN, GENERAL 10/17/2013 YATES DO, KARO K 724.5 BACK PAIN, GENERAL 10/17/2013 SALLY FLANGER, VALERIE S 724.5 BACK PAIN, GENERAL 10/17/2013 SALLY FLANGER, VALERIE S 724.5 BACK PAIN, GENERAL 10/17/2013 SALLY FLANGER, VALERIE S 724.5 BACK PAIN, GENERAL 10/17/2013 YATES DO, KARO K 724.5 BACK PAIN, GENERAL 10/17/2013 SALLY FLANGER, VALERIE S 724.5 BACK PAIN, GENERAL 12/03/2013 SALLY FLANGER, VALERIE S 496 COPD 12/03/2013 SALLY FLANGER, VALERIE S 599.0 URINARY TRACT INFECTION 12/03/2013 SALLY FLANGER, VALERIE S 788.41 URINARY FREQUENCY 12/03/2013 SALLY FLANGER, VALERIE S 496 COPD 12/03/2013 SALLY FLANGER, VALERIE S 599.0 URINARY TRACT INFECTION 12/03/2013 SALLY FLANGER, VALERIE S 788.41 URINARY FREQUENCY 12/03/2013 YATES DO, KARO K 496 COPD 12/03/2013 YATES DO, KARO K 599.0 URINARY TRACT INFECTION 12/03/2013 YATES DO, KARO K 788.41 URINARY FREQUENCY 12/03/2013 SALLY FLANGER, VALERIE S 496 COPD 12/03/2013 SALLY FLANGER, VALERIE S 599.0 URINARY TRACT INFECTION 12/03/2013 SALLY FLANGER, VALERIE S 788.41 URINARY FREQUENCY 12/03/2013 YATES DO, KARO K 496 COPD 12/03/2013 YATES DO, KARO K 599.0 URINARY TRACT INFECTION 12/03/2013 YATES DO, KARO K 788.41 URINARY FREQUENCY 12/03/2013 SALLY FLANGER, VALERIE S 496 COPD 12/03/2013 SALLY FLANGER, VALERIE S 599.0 URINARY TRACT INFECTION 12/03/2013 SALLY FLANGER, VALERIE S 788.41 URINARY FREQUENCY 12/03/2013 SALLY FLANGER, VALERIE S 496 COPD 12/03/2013 SALLY FLANGER, VALERIE S 599.0 URINARY TRACT INFECTION 12/03/2013 SALLY FLANGER, VALERIE S 788.41 URINARY FREQUENCY 12/03/2013 SALLY FLANGER, VALERIE S 496 COPD 12/03/2013 SALLY FLANGER, VALERIE S 599.0 URINARY TRACT INFECTION 12/03/2013 SALLY FLANGER, VALERIE S 788.41 URINARY FREQUENCY 12/03/2013 YATES DO, KARO K 496 COPD 12/03/2013 YATES DO, KARO K 599.0 URINARY TRACT INFECTION 12/03/2013 YATES DO, KARO K 788.41 URINARY FREQUENCY 12/03/2013 SALLY FLANGER, VALERIE S 496 COPD 12/03/2013 SALLY FLANGER, VALERIE S 599.0 URINARY TRACT INFECTION 12/03/2013 SALLY FLANGER, VALERIE S 788.41 URINARY FREQUENCY 01/23/2014 YATES DO, KARO K 477.0 ALLERGIC RHINITIS DUE TO POLLEN 01/23/2014 SALLY FLANGER, VALERIE S 477.0 ALLERGIC RHINITIS DUE TO POLLEN 01/23/2014 YATES DO, KARO K 477.0 ALLERGIC RHINITIS DUE TO POLLEN 01/23/2014 SALLY FLANGER, VALERIE S 477.0 ALLERGIC RHINITIS DUE TO POLLEN 01/23/2014 SALLY FLANGER, VALERIE S 477.0 ALLERGIC RHINITIS DUE TO POLLEN 01/23/2014 SALLY FLANGER, VALERIE S 477.0 ALLERGIC RHINITIS DUE TO POLLEN 01/23/2014 YATES DO, KARO K 477.0 ALLERGIC RHINITIS DUE TO POLLEN 01/23/2014 SALLY FLANGER, VALERIE S 477.0 ALLERGIC RHINITIS DUE TO POLLEN 02/26/2014 MIKE NICHOLSON L Ot 564.00 UNSPEC CONSTIPATION 02/26/2014 MIKE NICHOLSON Ot 788.0 RENAL COLIC 02/26/2014 MIKE NICHOLSON L Ot 789.09 ABDOMINAL PAIN, OTHER SPECIFIED SITE 03/03/2014 SALLY FLANGER, VALERIE S 592.0 CALCULUS OF KIDNEY 03/03/2014 YATES DO, KARO K 592.0 CALCULUS OF KIDNEY 03/03/2014 SALLY FLANGER, VALERIE S 592.0 CALCULUS OF KIDNEY 03/03/2014 SALLY FLANGER, VALERIE S 592.0 CALCULUS OF KIDNEY 03/03/2014 SALYL FLANGER, VALERIE S 592.0 CALCULUS OF KIDNEY 03/03/2014 YATES DO, KARO K 592.0 CALCULUS OF KIDNEY 03/03/2014 SALLY FLANGER, VALERIE S 592.0 CALCULUS OF KIDNEY 04/07/2014 YATES DO, KARO K 789.01 ABDOMINAL PAIN RIGHT UPPER QUADRANT 04/07/2014 SALLY FLANGER, VALERIE S 789.01 ABDOMINAL PAIN RIGHT UPPER QUADRANT 04/07/2014 SALLY FLANGER, VALERIE S 789.01 ABDOMINAL PAIN RIGHT UPPER QUADRANT 04/07/2014 SALLY FLANGER, VALERIE S 789.01 ABDOMINAL PAIN RIGHT UPPER QUADRANT 04/07/2014 YATES DO, KARO K 789.01 ABDOMINAL PAIN RIGHT UPPER QUADRANT 04/07/2014 SALLY FLANGER, VALERIE S 789.01 ABDOMINAL PAIN RIGHT UPPER [...] VALERIE ZAVALA Ot 382.00 10/29/2014 VALERIE ZAVALA [employer]ARMWORK[employer] Ot 401.1 10/29/2014 VALERIE ZAVALAP Ot 564.1 10/29/2014 VALERIE ZAVALA [employer]ARMWORK[employer] Ot 719.40 10/29/2014 VALERIE ZAVALA [employer]ARMWORK[employer] Ot 786.52 10/29/2014 VALERIE ZAVALA [employer]ARMWORK[employer] Ot V76.12 10/29/2014 SEDRICK DOBSON R FLANGER Ot 338.4 10/29/2014 BRONSON SEDRICK R FLANGER Ot 401.1 10/29/2014 SEDRICK DOBSON R FLANGER Ot 564.1 10/29/2014 SEDRICK DOBSON R FLANGER Ot 719.40 10/29/2014 VALERIE ZAVALA [employer]ARMWORK[employer] Ot 789.01 10/29/2014 BALTAZAR COTTER DO Ot 789.01 10/29/2014 VALERIE ZAVALA [employer]WORK[employer] Ot 789.09 11/03/2014 DOLORES DPM, SHERI Q Ot 305.1 TOBACCO USE DISORDER 11/03/2014 DOLORES DPM, SHERI Q Ot 311 DEPRESSIVE DISORDER NEC 11/03/2014 DOLORES DPM, SHERI Q Ot 401.9 HYPERTENSION NOS 11/03/2014 DOLORES DPM, SHERI Q Ot 496 CHR AIRWAY OBSTRUCT NEC 11/03/2014 DOLORES DPM, SHEIR Q Ot 735.0 HALLUX VALGUS 11/03/2014 DOLORES [...] VALERIE ZAVALAP Ot 380.4 03/31/2015 VALERIE ZAVALA [employer] Ot 382.00 03/31/2015 VALERIE ZAVALA [employer] FARMWORK[employer] Ot 401.1 03/31/2015 VALERIE ZAVALA [employer] FARMWORKER Ot 564.1 03/31/2015 VALERIE ZAVALA [employer] FARMWORKER Ot 719.40 03/31/2015 VALERIE ZAVALA [employer] FARMWORKER Ot 786.52 03/31/2015 VALERIE ZAVALA [employer] FARMWORKER Ot V76.12 03/31/2015 BRONSON SEDRICK R FLANGER Ot 338.4 03/31/2015 BRONSON SEDRICK R FLANGER Ot 401.1 03/31/2015 BRONSON SEDRICK R FLANGER Ot 564.1 03/31/2015 BRONSON SEDRICK R FLANGER Ot 719.40 03/31/2015 VALERIE ZAVALA [employer] FARMWORK[employer] Ot 789.01 03/31/2015 COTTER BALTAZAR RAMIREZ Ot 789.01 03/31/2015 VALERIE ZAVALA [employer]WORK[employer] Ot 789.09 03/31/2015 DOLORES DPM, SHERI Q [...] Ot 786.52 PAINFUL RESPIRATION 10/23/2015 SALLY, VALERIE [employer]WORK[employer] Ot V76.12 OTH SCREEN MAMMO-MALIGN NEOPLASM OF JOSIAH 10/23/2015 SEDRICK DOBSON FLANGER Ot 338.4 CHRONIC PAIN SYNDROME 10/23/2015 SEDRICK DOSBON FLANGER Ot 401.1 BENIGN HYPERTENSION 10/23/2015 SEDRICK DOBSON FLANGER Ot 564.1 IRRITABLE BOWEL SYNDROME 10/23/2015 SEDRICK DOBSON FLANGER Ot 719.40 JOINT PAIN-UNSPEC 10/23/2015 VALERIE ZAVALA [employer] Ot 789.01 ABDOMINAL PAIN, RIGHT UPPER QUADRANT 10/23/2015 COTTER BALTAZAR RAMIREZ Delia Ot 789.01 ABDOMINAL PAIN, RIGHT UPPER QUADRANT 10/23/2015 VALERIE ZAVALA [employer]WORK[employer] Ot 789.09 ABDOMINAL PAIN, OTHER SPECIFIED SITE 10/23/2015 DOLORES DPM, SHERI Q Ot 735.0 HALLUX VALGUS 10/23/2015 DOLORES DPM, SHERI Q Ot 735.4 OTHER HAMMER TOE 10/23/2015 DOLORES DPM, SHERI Q Ot V72.81 [id number] CARDIOVASCULAR 10/23/2015 DOLORES DPM, SHERI Q Ot [...] LOWER ABDOMINAL PAIN, UNSPECIFIED 2015 SALLYVALERIE FERGUSON FI[employer] FARMWORKER Ot R10.11 RIGHT UPPER QUADRANT PAIN 11/12/2015 VALERIE ZAVALA [employer] FARMWORKER Ot R10.11 RIGHT UPPER QUADRANT PAIN 11/19/2015 VALERIE ZAVALA [employer] FARMWORK[employer] Ot R10.11 RIGHT UPPER QUADRANT PAIN 05/29/2016 [...] LUMB/ LUMBOSAC DISC DEGEN 06/02/2016 VALERIE ZAVALA [employer] Ot 053.9 HERPES ZOSTER NOS 06/02/2016 VALERIE ZAVALA [employer]WORK[employer] Ot 338.4 CHRONIC PAIN SYNDROME 06/02/2016 VALERIE ZAVALA [employer] Ot 380.4 IMPACTED CERUMEN 06/02/2016 VALERIE ZAVALA [employer] Ot 382.00 AC SUPP OTITIS MEDIA NOS 06/02/2016 VALERIE ZAVALA [employer] Ot 401.1 BENIGN HYPERTENSION 06/02/2016 VALERIE ZAVALAP Ot 564.1 IRRITABLE BOWEL SYNDROME 06/02/2016 VALERIE ZAVALAP Ot 719.40 JOINT PAIN-UNSPEC 06/02/2016 VALERIE ZAVALAP Ot 786.52 PAINFUL RESPIRATION 06/02/2016 VALERIE ZAVALAP Ot V76.12 OTH SCREEN MAMMO-MALIGN NEOPLASM OF JOSIAH 06/02/2016 SEDRICK DOBSON FLANGER Ot 338.4 CHRONIC PAIN SYNDROME 06/02/2016 SEDRICK DOBSON FLANGER Ot 401.1 BENIGN HYPERTENSION 06/02/2016 SEDRICK DOBSON FLANGER Ot 564.1 IRRITABLE BOWEL SYNDROME 06/02/2016 SEDRICK DOBSON FLANGER Ot 719.40 JOINT PAIN-UNSPEC 06/02/2016 VALERIE ZAVALA Ot 789.01 ABDOMINAL PAIN, RIGHT UPPER QUADRANT 06/02/2016 BALTAZAR COTTER DO Ot 789.01 ABDOMINAL PAIN, RIGHT UPPER QUADRANT 06/02/2016 VALERIE ZAVALA Ot 789.09 ABDOMINAL PAIN, OTHER SPECIFIED SITE 06/02/2016 DOLORES DPM, SHERI Q Ot 735.0 HALLUX VALGUS 06/02/2016 DOLORES DPM, SHERI Q Ot 735.4 OTHER HAMMER TOE 06/02/2016 DOLORES DPM, SHERI Q Ot V72.81 [id number] CARDIOVASCULAR 06/02/2016 DOLORES DPM, SHERI Q Ot [...] RIGHT ARTIFICIAL KNEE JOINT 06/25/2016 ANDREW KANG [employer] F[employer]WORK[employer] Ot I10 ESSENTIAL (PRIMARY) HYPERTENSION 06/25/2016 ANDREW KANGP Ot J44.9 CHRONIC OBSTRUCTIVE PULMONARY DISEASE, U 06/25/2016 PEARL, ANDREW [employer]WORK[employer] Ot N39.0 URINARY TRACT INFECTION, SITE NOT SPECIF 06/25/2016 PEARL, ANDREW [employer]WORK[employer] Ot R30.0 DYSURIA 06/28/2016 PEARL ANDREW [employer] FARMWORKER Ot I10 ESSENTIAL (PRIMARY) HYPERTENSION 06/28/2016 PEARL ANDREW [employer] FARMWORKER Ot J44.9 CHRONIC OBSTRUCTIVE PULMONARY DISEASE, U 06/28/2016 PEARL, ANDREW [employer] FARMWORKER Ot N39.0 URINARY TRACT INFECTION, SITE NOT SPECIF 06/28/2016 PEARL ANDREW [employer] FARMWORKER Ot R30.0 DYSURIA 07/08/2016 BINU JAVIER MD Ot I10 ESSENTIAL (PRIMARY) HYPERTENSION 07/08/2016 BINU JAVIER MD T Ot J44.9 CHRONIC OBSTRUCTIVE PULMONARY DISEASE, U 07/08/2016 BINU JAVIER MD T Ot N32.89 OTHER SPECIFIED DISORDERS OF BLADDER 07/08/2016 BINU JAVIER MD Ot N39.0 URINARY TRACT INFECTION, SITE NOT SPECIF 07/08/2016 BINU JAVIER MD Ot R30.0 DYSURIA 07/08/2016 BINU JAVIER MD Ot Z79.899 OTHER CUSTOMER EXPERIENCE 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) DRUG THERAPY 07/11/2016 BINU JAVIER MD Ot I10 ESSENTIAL (PRIMARY) HYPERTENSION 07/11/2016 BINU JAVIER MD Ot J44.9 CHRONIC OBSTRUCTIVE PULMONARY DISEASE, U 07/11/2016 BINU JAVIER MD Ot N32.89 OTHER SPECIFIED DISORDERS OF BLADDER 07/11/2016 BINU JAVIER MD Ot N39.0 URINARY TRACT INFECTION, SITE NOT SPECIF 07/11/2016 BINU JAVIER MD Ot R30.0 DYSURIA 07/11/2016 BINU JAVIER MD T Ot Z79.899 OTHER CUSTOMER EXPERIENCE RETAIL 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) DRUG THERAPY 07/13/2016 BINU JAVIER MD Ot I10 ESSENTIAL (PRIMARY) HYPERTENSION 07/13/2016 BINU JAVIER MD Ot J44.9 CHRONIC OBSTRUCTIVE PULMONARY DISEASE, U 07/13/2016 BINU JAVIER MD T Ot N32.89 OTHER SPECIFIED DISORDERS OF BLADDER 07/13/2016 BINU JAVIER MD Ot N39.0 URINARY TRACT INFECTION, SITE NOT SPECIF 07/13/2016 BINU JAVIER MD Ot R30.0 DYSURIA 07/13/2016 BINU JAVIER MD T Ot Z79.899 OTHER CUSTOMER EXPERIENCE RETAIL 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) DRUG THERAPY 08/21/2016 LORETO TIPTON DO [...] SAEED DO, LORETO K Ot Z79.899 OTHER [facility] (CURRENT) DRUG THERAPY 08/23/2016 SAEED DO, LORETO [...] SAEED DO, LORETO K Ot Z79.899 OTHER [facility] (CURRENT) DRUG THERAPY 09/18/2016 THANH MAO MD [...] WITH VOMITING, UNSPECIFIED 02/09/2017 SEDRICK DOBSON R FLANGER Ot R10.31 RIGHT LOWER QUADRANT PAIN 02/28/2017 BRONSON SEDRICK R FLANGER Ot R10.31 RIGHT LOWER QUADRANT PAIN 03/10/2017 BRONSON SEDRICK R FLANGER Ot R10.31 RIGHT LOWER QUADRANT PAIN 05/17/2017 ADRIAN ZAVALAA [employer]WORK[employer] Ot N20.0 CALCULUS OF KIDNEY 05/17/2017 ADRIAN ZAVALAA [employer] FARMWORK[employer] Ot R91.8 OTHER NONSPECIFIC ABNORMAL FINDING OF DAVID 06/02/2017 ADRIAN ZAVALAA [employer] FARMWORKER Ot R31.9 HEMATURIA, UNSPECIFIED 06/02/2017 ADRIAN ZAVALAA [employer] FARMWORKER Ot Z87.442 PERSONAL HISTORY OF URINARY CALCULI 06/07/2017 ADRIAN ZAVALAA [employer] FARMWORKER Ot R31.9 HEMATURIA, UNSPECIFIED 06/07/2017 SALLY, VALERIE [employer] FARMWORKER Ot Z87.442 PERSONAL HISTORY OF URINARY CALCULI 06/13/2017 ADRIAN ZAVALAA FI[employer] FARMWORKER Ot N20.0 CALCULUS OF KIDNEY 06/13/2017 SALLYADRIAN FERGUSONA FIELD [employer] FARMWORKER Ot R91.8 OTHER NONSPECIFIC ABNORMAL FINDING OF DAVID 06/16/2017 ADRIAN ZAVALAA FI[employer] FARMWORKER Ot N20.0 CALCULUS OF KIDNEY 06/16/2017 ADRIAN ZAVALAA FI[employer] FARMWORKER Ot R91.8 OTHER NONSPECIFIC ABNORMAL FINDING OF DAVID 06/23/2017 ADRIAN ZAVALAA FI[employer] FARMWORKER Ot R31.9 HEMATURIA, UNSPECIFIED 06/23/2017 ADRIAN ZAVALAA FI[employer] FARMWORKER Ot Z87.442 PERSONAL HISTORY OF URINARY CALCULI 07/21/2017 ADRIAN ZAVALAA FI[employer] FARMWORKER Ot R31.9 HEMATURIA, UNSPECIFIED 07/21/2017 ADRIAN ZAVALAA FIELD CROP FARMWORKER Ot Z87.442 PERSONAL HISTORY OF URINARY CALCULI [...] R63.4 ABNORMAL WEIGHT LOSS 08/30/2017 ENRIQUETA ABRAMS, UADIE Johnson Ot Z01.818 ENCOUNTER FOR OTHER PREPROCEDURAL EXAMIN 09/01/2017 Ot 724.2 LUMBAGO 09/01/2017 Ot 722.52 LUMB/ LUMBOSAC DISC DEGEN 09/01/2017 VALERIE ZAVALA FIELD [employer] FARMWORKER Ot 053.9 HERPES ZOSTER NOS 09/01/2017 VALERIE ZAVALA FIELD [employer] FARMWORKER Ot 338.4 CHRONIC PAIN SYNDROME 09/01/2017 VALERIE ZAVALA FIELD [employer] FARMWORKER Ot 380.4 IMPACTED CERUMEN 09/01/2017 VALERIE ZAVALA FIELD [employer] FARMWORKER Ot 382.00 AC SUPP OTITIS MEDIA NOS 09/01/2017 VALERIE ZAVALA FIELD [employer] FARMWORKER Ot 401.1 BENIGN HYPERTENSION 09/01/2017 VALERIE ZAVALA FIELD [employer] FARMWORKER Ot 564.1 IRRITABLE BOWEL SYNDROME 09/01/2017 VALERIE ZAVALA FIELD CR[employer] FARMWORKER Ot 719.40 JOINT PAIN-UNSPEC 09/01/2017 VALERIE ZAVALA FIELD [employer] FARMWORKER Ot 786.52 PAINFUL RESPIRATION 09/01/2017 VALERIE ZAVALA FIELD CR[employer] FARMWORKER Ot V76.12 OTH SCREEN MAMMO-MALIGN NEOPLASM OF JOSIAH 09/01/2017 SEDRICK DOBSON FLANGER Ot 338.4 CHRONIC PAIN SYNDROME 09/01/2017 SEDRICK DOBSON FLANGER Ot 401.1 BENIGN HYPERTENSION 09/01/2017 SEDRICK DOBSON FLANGER Ot 564.1 IRRITABLE BOWEL SYNDROME 09/01/2017 SEDRICK DOBSON FLANGER Ot 719.40 JOINT PAIN-UNSPEC 09/01/2017 VALERIE ZAVALA FIELD [employer] FARMWORKER Ot 789.01 ABDOMINAL PAIN, RIGHT UPPER QUADRANT 09/01/2017 BALTAZAR COTTER DO Ot 789.01 ABDOMINAL PAIN, RIGHT UPPER QUADRANT 09/01/2017 VALERIE ZAVALAP Ot 789.09 ABDOMINAL PAIN, OTHER SPECIFIED SITE 09/01/2017 DOLORES DPM, SHERI Q Ot 735.0 HALLUX VALGUS 09/01/2017 DOLORES DPM, SHERI Q Ot 735.4 OTHER HAMMER TOE 09/01/2017 DOLORES DPM, SHERI Q Ot V72.81 [id number] CARDIOVASCULAR 09/01/2017 DOLORES DPM, SHERI Q Ot [...] FOR OTHER PREPROCEDURAL EXAMIN 09/01/2017 SEDRICK DOBSON FLANGER Ot R10.31 RIGHT LOWER QUADRANT PAIN 09/01/2017 VALERIE ZAVALAP Ot N20.0 CALCULUS OF KIDNEY 09/01/2017 VALERIE ZAVALA Ot R91.8 OTHER NONSPECIFIC ABNORMAL FINDING OF DAVID 09/01/2017 VALERIE ZAVALAP Ot R31.9 HEMATURIA, UNSPECIFIED 09/01/2017 VALERIE ZAVALAP Ot Z87.442 PERSONAL HISTORY OF URINARY CALCULI 09/21/2017 SALLY, VALEREI FIELD [employer] FARMWORKER Ot Z12.31 ENCNTR SCREEN MAMMOGRAM FOR MALIGNANT NE 09/22/2017 SALLYSERINAVALERIE FIELD CROP FARMWORKER Ot Z12.31 ENCNTR SCREEN MAMMOGRAM FOR MALIGNANT [...] AN 10/05/2017 CYDNEY ANDERSON APRN Ot Z79.51 [facility] (CURRENT) USE OF INHALED STERO 10/05/2017 CYDNEY [...] TO ENVIRON TOBACCO SMO 11/27/2017 BRII ABRAMS, DBE Fuller Ot Z87.19 PERSONAL HISTORY OF OTHER [...] Procedures Code [place] [address] XRAY FOOT LEFT 2 VIEWS 03/16/201257135 INJ TENDON SHEATH/LIGAMENT 06/29/2012 27859 XRAY FOOT RIGHT 2 VIEWS 06/29/2012 03201 XRAY FOOT LEFT 2 VIEWS 06/29/2012 87422 MRI SPINE (LUMBAR) W/O CONTRAST 07/05/2012 30132 CULTURE URINE 08/01/2012 52940 ROUTINE VENIPUNCTURE 02/04/2013 53424 URINE DRUG SCREEN (IN-HOUSE ) 02/04/2013 58613 CBC 02/04/2013 02881 CMP 02/04/2013 75493 URIC ACID 02/04/2013 91494 LIPID PANEL 02/04/2013 3609638 GFR CALC (RESULT ONLY) 02/04/2013 74226 CRP 02/04/2013 91894 ESR/SED RATE 02/04/2013 41442 ASO 02/05/2013 15001 RA FACTOR 02/05/2013 ANAANA PEMA ANALYZER (SCREEN) 02/05/2013 G0008 FLU ADMINISTRATION ( MEDICARE ONLY) 02/17/2013 36410 XRAY CHEST 2 VIEW 04/10/2013 92838 MAMMOGRAM, SCREENING 05/07/2013 17815 URINE DRUG SCREEN (IN-HOUSE ) 06/04/2013 76387 US RENAL ARTERY DOPPLER 09/12/2013 29171 XRAY S-C JOINTS 2 OR MORE VIEWS 10/17/2013 58384 XRAY PELVIS 1 OR 2 VIEWS 10/17/2013 Physical Physical Therapy, [facility] 10/17/2013 96109 ROUTINE VENIPUNCTURE 02/18/2014 3571948 GFR CALC (RESULT ONLY) 02/18/2014 96361 CMP 02/18/2014 76110 LIPID PANEL 02/18/2014 Urology Frank Cole 03/03/2014 19669 UA W/ CULTURE IF INDICATED 04/07/2014 84941 US GALLBLADDER ULTRASOUND 04/07/2014 11312 HIDA SCAN 04/07/2014 General S Baltazar Cotter 04/29/2014 42503 UA LONG DIP 05/31/2014 01958 ROUTINE VENIPUNCTURE 06/04/2014 8313314 GFR CALC (RESULT ONLY) 06/04/2014 66608 CMP 06/04/2014 75378 CBC 06/04/2014 53025 CELIAC DISEASE ANALYZER 06/06/2014 61769 N-METHYLHISTAMINE, 24HR URINE 06/19/2014 75761 XRAY KNEE RIGHT 3 VIEWS 08/25/2014 Albaro [...] culture - 05/29/16 16:50 Bacterial blood culture [facility] Bacterial blood culture - 05/29/16 17:02 Bacterial blood culture [facility] Complete blood count (CBC) with automated white [...] culture - 06/02/16 17:06 Bacterial urine culture [id number] NRG COLONY COUNT >100,000/ML NR FTX;REPORTABLE SENSITIVITY REPORTED 06/03 16:25 [facility] Bacterial susceptibility panel - 06/02/16 17:06 Gentamicin [...] susceptibility test by minimum inhibitory concentration - [facility] Urine osmolality - 06/02/16 17:06 Urine osmolality [...] culture - 06/25/16 13:40 Bacterial urine culture [id number] NRG COLONY COUNT 10,000/ML - 100,000/ML NRG FTX;REPORTABLE SENSITIVITIES REPORTED AT 0849, 06-27-16 NR URINE CULTURE RESULTS PLUS [facility] Bacterial susceptibility panel - 06/25/16 13:40 Gentamicin [...] susceptibility test by minimum inhibitory concentration - [facility] Bacterial susceptibility panel - 06/25/16 13:40 Gentamicin [...] culture - 07/08/16 16:35 Bacterial urine culture [id number] NRG COLONY COUNT >100,000/ML NRG FTX;REPORTABLE SENSITIVITY [...] culture - 08/21/16 18:45 Bacterial urine culture [id number] NRG COLONY COUNT >100,000/ML NRG FTX;REPORTABLE SENSITIVITY [...] Status Pt. Type Provider Facility Loc./Unit Complaint [id number] 08/25/2014 15:28:00 08/25/2014 23:59:59 [facility] Outpatient VALERIE ZAVALA APRN [id number] 07/14/2014 09:55:00 07/14/2014 23:59:59 [facility] Outpatient KARO YATES DO [id number] 05/31/2014 09:29:00 05/31/2014 23:59:59 [facility] Outpatient VALERIE ZAVALA APRN [id number] 05/31/2014 09:29:00 05/31/2014 23:59:59 [facility] Outpatient VALERIE ZAVALA APRN [id number] 04/07/2014 12:21:00 04/07/2014 23:59:59 [facility] Outpatient VALERIE ZAVALA APRN [id number] 04/07/2014 12:21:00 04/07/2014 23:59:59 [facility] Outpatient KARO YATES DO [id number] 02/18/2014 13:43:00 02/18/2014 23:59:59 [facility] Outpatient SALLY FLANGERSERINAVALERIE S [id number] 01/23/2014 17:27:00 01/23/2014 23:59:59 [facility] Outpatient MILAN RAMIREZ KARO Gonsalez [id number] 12/03/2013 09:16:00 12/03/2013 23:59:59 [facility] Outpatient SALLY FLANGERSERINAVALERIE S [id number] 12/03/2013 09:16:00 12/03/2013 23:59:59 [facility] Outpatient SALLY FLANGER, VALERIE S [id number] 10/17/2013 13:45:00 10/17/2013 23:59:59 [facility] Outpatient SALLY FLANGERSERINAVALERIE S [id number] 09/09/2013 10:47:00 09/09/2013 23:59:59 [facility] Outpatient SALLY FLANGERSERINAVALERIE S [id number] 06/04/2013 10:50:00 06/04/2013 23:59:59 [facility] Outpatient SALLY FLANGERSERINAVALERIE S [id number] 06/04/2013 10:50:00 06/04/2013 23:59:59 [facility] Outpatient SALLY FLANGERSERINAVALERIE S [id number] 05/07/2013 11:28:00 05/07/2013 23:59:59 [facility] Outpatient SALLY FLANGERSERINAVALERIE S [id number] 04/10/2013 16:12:00 04/10/2013 23:59:59 [facility] Outpatient SALLY FLANGERSERINAVALERIE S [id number] 04/10/2013 16:12:00 04/10/2013 23:59:59 [facility] Outpatient YATES KARO [id number] 04/06/2013 11:17:00 04/06/2013 23:59:59 [facility] Outpatient MILAN DOKARO [id number] 04/02/2013 10:20:00 04/02/2013 23:59:59 [facility] Outpatient SALLY FLANGERSERINAVALERIE S [id number] 02/04/2013 11:19:00 02/04/2013 23:59:59 CLS Outpatient MICHELLE CAMARGO MD [id number] 02/04/2013 11:19:00 02/04/2013 23:59:59 [facility] Outpatient SALLY FLANGERADRIANAudra Fuller [id number] 08/10/2012 09:19:00 08/10/2012 23:59:59 [facility] Outpatient KARO YATES DO [place] [id number] 07/30/2012 08:25:00 07/30/2012 23:59:59 [facility] Outpatient SALLY FLANGERVALERIE Jonny [id number] 07/04/2012 13:20:00 07/04/2012 23:59:59 [facility] Outpatient SALLY FLANGERSERINAVALERIE Jonny [id number] 06/29/2012 08:10:00 06/29/2012 23:59:59 [facility] Outpatient HALEY YATES DOAudra Gonsalez [id number] 06/13/2012 14:07:00 06/13/2012 23:59:59 [facility] Outpatient SALLY FLANGERSERINAVALERIE S [id number] 06/05/2012 11:37:00 06/05/2012 23:59:59 [facility] Outpatient [id number] 05/29/2012 16:36:00 05/29/2012 23:59:59 CLS Outpatient ESPAÑA FLANGER ZORAIDA Kelley [id number] 03/30/2012 09:50:00 03/30/2012 23:59:59 [facility] Outpatient KARO YATES DO [place] [id number] 02/14/2012 13:28:00 02/14/2012 23:59:59 [facility] Outpatient KARO YATES DO [place] [id number] 11/13/2012 14:22:00 Document Registration [id number] 11/13/2012 14:22:00 Document Registration [id number] 09/21/2012 09:46:00 Document Registration [id number] 01/02/2015 04:06:53 ACT Document Registration [id number] 11/27/2017 15:12:00 11/27/2017 17:52:00 DIS Emergency DEB TERESA MD [facility] ER HIGH BP;UTI [id number] 10/05/2017 15:40:00 10/05/2017 16:50:00 DIS Emergency CDYNEY ANDERSON APRN [facility] ER FALL;R KNEE [id number] 09/21/2017 13:41:00 09/21/2017 23:59:59 [facility] Outpatient VALERIE ZAVALA [facility] RAD Z12.31 SCREENING MAMMO [id number] 09/04/2017 08:30:00 09/04/2017 23:59:59 CLS Preadmit ENRIQUETA ABRAMS, AUDIE Johnson [facility] ENDO GERD/WT LOSS [id number] 08/28/2017 05:38:00 08/28/2017 09:34:00 DIS Outpatient AUDIE ROBISON MD [facility] PREOP EGD [id number] 06/01/2017 14:47:00 06/01/2017 23:59:59 CLS Outpatient VALERIE ZAVALAP [facility] RAD R31.9 HEMATURIA [id number] 05/16/2017 11:28:00 05/16/2017 23:59:59 CLS Outpatient VALERIE ZAVALA [employer] [facility] RAD R10.31 RIGHT LOWER QUADRANT ABDOMINAL PAIN [id number] 02/08/2017 14:15:00 02/08/2017 23:59:59 CLS Outpatient SEDRICK DOBSON APRN [facility] LAB R10.31 [id number] 09/18/2016 11:44:00 09/18/2016 15:05:00 DIS Emergency MAYCO ABRAMS, THANH June [facility] ER ABD PAIN [id number] 08/21/2016 17:56:00 08/21/2016 20:28:00 DIS Emergency LORETO TIPTON DO [facility] ER UTI SYMPTOMS [id number] 07/08/2016 15:53:00 07/08/2016 17:45:00 DIS Emergency BINU JAVIER MD [facility] ER UTI SX [id number] 06/25/2016 13:23:00 06/25/2016 14:34:00 DIS Emergency ANDREW KANG [facility] ER UTI SYMPTOMS [id number] 06/23/2016 05:59:00 06/23/2016 23:59:59 CLS Outpatient AUDIE ROBISON MD [facility] PREOP GERD [id number] 06/02/2016 01:23:00 06/03/2016 12:15:00 DIS Inpatient RAISSA FUENTES MD [facility] ICU COPD EXACERBATION [id number] 05/29/2016 15:59:00 05/29/2016 18:15:00 DIS Emergency CYDNEY ANDERSON APRN [facility] ER COUGH/DIFF BREATHING/ WEAKNESS [id number] 10/23/2015 08:47:00 10/23/2015 23:59:59 CLS Outpatient VALERIE ZAVALA [facility] RAD RUQ ABD PAIN [id number] 10/23/2015 13:52:00 10/23/2015 16:58:00 DIS Emergency MIKAELA MIN MD [facility] ER ABD PAIN [id number] 08/12/2015 13:46:00 08/12/2015 23:59:59 CLS Preadmit VALERIE ZAVALA [facility] REHAB [id number] 03/31/2015 12:24:00 03/31/2015 23:59:59 CLS Outpatient ALBARO PARADA MD [facility] RAD LUMBAR RADICULOPATHY [id number] 01/07/2015 06:00:00 01/10/2015 11:06:00 DIS Inpatient ALBARO PARADA MD [facility] SURGICAL RIGHT KNEE SEVERE OSTEOARTHRITIS [id number] 01/01/2015 09:52:00 01/01/2015 23:59:59 CLS Outpatient ALBARO PARADA MD [facility] PREOP RIGHT KNEE SEVERE OSTEOARTHRITIS [id number] 11/03/2014 07:51:00 11/03/2014 16:15:00 DIS Outpatient DOLORES DPM, SHERI Q [facility] SDC HAMMER TOE LT GREAT TOE [id number] 10/29/2014 10:29:00 10/29/2014 23:59:59 CLS Outpatient DOLORES DPM, SHERI Q [facility] PREOP HAMMERTOE LEFT FOOT [id number] 06/11/2014 09:17:00 06/11/2014 23:59:59 CLS Outpatient VALERIE ZAVALA [facility] RAD RIGHT FLANK PAIN FOR 3 MONTHS [id number] 05/23/2014 08:31:00 05/23/2014 23:59:59 CLS Outpatient BALTAZAR COTTER DO D [facility] CARD RUQ PAIN [id number] 04/22/2014 09:15:00 04/22/2014 23:59:59 CLS Outpatient SALLY VALERIE FULLER [facility] RAD MID EPIGASTRIC PAIN, RADIATING TO RT [id number] 02/26/2014 14:09:00 02/26/2014 16:55:00 DIS Emergency MIKE NICHOLSON [facility] ER RIGHT FLANK PAIN [id number] 10/23/2013 08:33:00 10/23/2013 23:59:59 CLS Outpatient SEDRICK DOBSON APRN [facility] RAD UNCONTROLLED BP [id number] 09/20/2013 13:33:00 09/20/2013 23:59:59 CLS Outpatient VALERIE ZAVALA [facility] RAD UNCONTROLLED BLOOD PRESSURE [id number] 10/29/2014 10:48:00 Document Registration [id number] 10/29/2014 10:48:00 Document Registration [id number] 10/29/2014 10:48:00 Document Registration [id number] 10/29/2014 10:42:00 Document Registration [id number] 06/28/2012 15:25:00 Document Registration [id number] 06/25/2012 10:52:00 Document Registration [id number] 02/20/2012 05:51:00 Document Registration [id number] 02/14/2012 11:58:00 Document Registration [id number] 12/05/2011 11:16:00 Document Registration [id number] 10/03/2011 13:46:00 Document Registration [id number] 09/18/2011 15:35:00 Document Registration [id number] 07/10/2011 13:03:00 Document Registration [id number] 07/06/2011 18:15:00 Document Registration [id number] 06/16/2011 08:58:00 Document Registration [id number] 04/26/2011 05:37:00 Document Registration [id number] 04/20/2011 09:35:00 Document Registration [id number] 02/27/2011 19:11:00 Document Registration [id number] 01/31/2011 14:13:00 Document Registration [id number] 11/07/2010 19:22:00 Document Registration [id number] 10/11/2010 14:04:00 Document Registration [id number] 09/06/2010 17:52:00 Document Registration [id number] 08/23/2010 11:02:00 Document Registration [id number] 08/18/2010 06:59:00 Document Registration [id number] 05/20/2010 10:20:00 Document Registration [id number] 10/30/2009 09:41:00 Document Registration [id number] 05/03/2016 08:06:00 Document Registration [id number] 11/28/2017 15:00:00 11/28/2017 23:59:59 CLS Outpatient VALERIE ZAVALA APRN [facility] [id number] 11/27/2017 11:40:00 Document Registration [id number] 10/30/2017 16:40:00 Document Registration [id number] 09/20/2017 13:40:00 Document Registration [id number] 05/03/2017 11:20:00 Document Registration [id number] 04/19/2017 10:40:00 Document Registration [id number] 03/23/2017 12:20:00 Document Registration
[2017-12-20] MEDS ORDERED: CATHETER FLUSH 10 ML SYR IV PRN (17:45)
--- NOTE | 2017-12-20 17:50 | History & Physical-Hospitalist ---
History of Present Illness HPI/Chief Complaint Pts is a 67yoCF with a PMH of recurrent UTIs and HTN who presented to the ER due to bladder pain and low blood pressure. She states her symptoms started last night with bladder pain. She checked her blood pressure then and it was elevated. She woke up this morning with pain again and still didn't feel well. She took her normal medications and then checked her blood pressure and found it to be very low (70/50s). She continued to have pain and checked her blood pressure again and found it to still be low so her brought her to the ER for evaluation. She was found to be hypotensive with hypothermia and tachycardia and admitted for severe sepsis from UTI. Source: patient Date Seen 12/20/17 Time Seen by Provider: 17:49 Attending Physician Abida Juan No,Local Physician Referring Physician Date of Admission Dec 20, 2017 at 15:59 Home Medications & Allergies Home Medications Reviewed patient Home Medication Reconciliation performed by pharmacy medication reconciliations structural technician and/or nursing. Patients Allergies have been reviewed. Allergies Allergies Coded Allergies Sulfa (Sulfonamide Antibiotics) (Verified Allergy, Unknown, 05/29/16) adhesive (Verified Allergy, Unknown, 05/29/16) fentanyl adhesive meperidine (Verified Allergy, Unknown, HALLUCINATIONS, 05/29/16) pregabalin (Verified Allergy, Unknown, 07/10/16) Past Hyncvdq-Ulhnbg-Buvipw Hx Past Med/Social Hx: Reviewed Nursing Past Med/Soc Hx Patient Social History Marrital Status: Alcohol Use: Denies Use Recreational Drug Use: No Smoking Status: Current Everyday Smoker Type Used: Cigarettes 2nd Hand Smoke Exposure: Yes Recent Foreign Travel: No Contact w/other who traveled: No Recent Hopitalizations: No (Emphysema, UTI admit 05/2016) Recent Infectious Disease Expo: No Immunizations Up To Date Tetanus Booster (TDap): Less than 5yrs Date of Pneumonia Vaccine: Feb 27, 2017 Date of Influenza Vaccine: Feb 27, 2017 Seasonal Allergies Seasonal Allergies: Yes Past Medical History Surgeries: Abdominal, Section, Hysterectomy, Joint Replacement, Orthopedic, Tonsillectomy Currently Using CPAP: No Cardiac: Hypertension Neurological: Headaches /Migraines 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: No Sexually Transmitted Disease: No HIV/AIDS: No Genitourinary: Kidney Infection, Kidney Stones, UTI-Chronic Gastrointestinal: Gastroesophageal Reflux, Chronic Constipation, Irritable Bowel Musculoskeletal: Degenerate Disk Disease, Osteoporosis, Arthritis, Fibromyalgia , Chronic Back Pain Loss of Vision: Bilateral Hearing Impairment: Denies Psychosocial: Anxiety, PTSD, Depression History of Blood Disorders: Yes (HX OF ANEMIA) Adverse Reaction to Blood [place]: No (HAS FLUSHING BUT NO REACTION) Family History Reviewed Nursing Family Hx Abdominal aortic aneurysm Alzheimer's disease 19 MOTHER Cardiovascular disease 19 FATHER ( AT 46 FROM HEART ATTACK) G8 SISTER Hypercholesterolemia 19 FATHER Hypertension 19 FATHER 19 MOTHER Myocardial infarction 19 FATHER Thyroid disease 19 MOTHER G8 SISTER Review of Systems Constitutional: weakness EENTM: no symptoms reported Respiratory: no symptoms reported Cardiovascular: no symptoms reported Gastrointestinal: no symptoms reported Genitourinary: dysuria, pain Musculoskeletal: no symptoms reported Skin: no symptoms reported Psychiatric/Neurological: No Symptoms Reported Physical Exam Physical Exam Vital Signs Vital Signs - First Documented 12/20/17 12/20/17 13:28 20:07 Temp 95.9 Pulse 98 Resp 16 B/P (MAP) 73/43 (53) Pulse Ox 98 O2 Delivery Room Air FiO2 21 Capillary Refill : Less Than 3 Seconds Height, Weight, BMI Height: 5'4.00" Weight: 128lbs. 0.0oz. 58.330323hj; 21.5 BMI Method:Stated General Appearance: No Apparent Distress, WD/WN HEENT: PERRL/EOMI, Moist Mucous Membranes Neck: Non Tender, Supple Respiratory: Lungs Clear, No Respiratory Distress Cardiovascular: Regular Rate, Rhythm, No Murmur Gastrointestinal: Normal Bowel Sounds, Non Tender, Soft, Other (suprpubic tenderness) Back: No CVA Tenderness Extremity: Normal Capillary Refill, No Calf Tenderness 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: Alert, Oriented x3, Normal Mood/Affect Skin: Normal Color, Warm/Dry Results Results/Procedures Labs Laboratory Tests 12/21/17 08:38 12/22/17 06:27 12/22/17 07:02 Patient resulted labs reviewed. Assessment/Plan Admission Diagnosis Severe Sepsis Admission Status: Inpatient Order (span 2 midnights) Reason for Inpatient Admission: IV abx, IV fluids Diagnosis/Problems Diagnosis/Problems (1) Severe sepsis Assessment & Plan: Hypotensive on arrival (but not persistent- only 1 low BP reading) 2/4 SIRS positive and UA consistent with UTI Lactic 3.5 on arrival No shock criteria met so no need for 30cc/kg bolus Continue on Rocephin per previous urine cultures and sensitivities Cultures sent in ER (2) Urinary tract infection Status: Acute Assessment & Plan: abx as above Qualifiers: Urinary tract infection type: acute cystitis Hematuria presence: without hematuria Qualified Codes: N30.00 - Acute cystitis without hematuria EFRAÍN FERRER MD Dec 20, 2017 17:50
[2017-12-20 17:55] VITALS: BP 136/63
[2017-12-20] MEDS ORDERED: MILK OF MAGNESIA 400 MG/5 ML 30 ML UDC PO PRN (18:00)
[2017-12-20] MEDS ORDERED: ANTACID SUSP 30 ML UDC (MYLANTA) PO PRN (18:00)
[2017-12-20] MEDS ORDERED: ACETAMINOPHEN 500 MG TAB (TYLENOL) PO PRN (18:00)
[2017-12-20] MEDS ORDERED: ONDANSETRON 4 MG/2 ML (SDV) Z0FRAN IV PRN (18:00)
[2017-12-20] MEDS: fentaNYL INJECTION 100 MCG/2 ML AMP IVP PRN ×5 (18:05→23:27)
[2017-12-20] MEDS ORDERED: ACETAMINOPHEN 325 MG TABLET PO PRN (18:15)
[2017-12-20] MEDS ORDERED: NS IV 1000 ML 1,000 ML ONE (18:30)
[2017-12-20] MEDS: NS IV 1000 ML 1,000 ML IV SCH (19:01)
[2017-12-20] MEDS: PHENAZOPYRIDINE 100 MG (PYRIDIUM) TABLET PO SCH (19:11)
[2017-12-20] MEDS ORDERED: NON-FORMULARY MEDICATION 1 EA EA (Dicyclomine HCl 20 MG) PO PRN (19:15)
[2017-12-20] MEDS ORDERED: DICYCLOMINE 10 MG (BENTYL) CAP PO PRN (19:15)
[2017-12-20 20:00] VITALS: BP 139/67
[2017-12-20 20:07] VITALS: BP 127/74
[2017-12-20] MEDS ORDERED: RT-ALBUTEROL/IPRATROPIUM 3 ML (DUONEB) VIAL INH PRN (20:30)
[2017-12-20] MEDS: CATHETER FLUSH 10 ML SYR IV SCH (22:00)
[2017-12-20] MEDS: RT-ALBUTEROL/IPRATROPIUM 3 ML (DUONEB) VIAL INH SCH (22:44)
[2017-12-20] MEDS: MELATONIN 3 MG TABLET PO PRN (23:27)
[2017-12-21] VITALS: BP 155/74
[2017-12-21] MEDS: fentaNYL INJECTION 100 MCG/2 ML AMP IVP PRN ×6 (02:45→16:48)
[2017-12-21] MEDS: hydrOXYzine (ATARAX) 10 MG TAB PO PRN (03:24)
[2017-12-21 03:44] VITALS: BP 169/69
[2017-12-21] MEDS: NS IV 1000 ML 1,000 ML IV SCH ×2 (05:13→16:48)
[2017-12-21] MEDS: CATHETER FLUSH 10 ML SYR IV SCH ×3 (05:26→20:50)
[2017-12-21 08:00] VITALS: BP 138/62
--- NOTE | 2017-12-21 08:14 | Progress Note (SOAP) ---
Subjective Subjective/Events-last exam No acute events overnight. VSS, afebrile. Contacted by nursing staff this morning, pt is having pain uncontrolled by fentanyl and she has had it every hour on the hour. Pt states she has taken tramadol in the past and she would like to try oral medications for pain. Oral medications ordered with improved pain control. At the time of exam pt has an extremely extensive list of complaints, essentially boiling down to chronic abdominal pain that has no known cause. Pt also states she has "out of control blood pressure that no one can figure out". Pt complaining that Yoni FULLER called her a liar and tricked her into seeing Dr. Oleary, who then called her a drug seeker because she has filled prescriptions at both [facility] and [facility], and she has never done anything like that, and she doesn't understand why she was treated like that. Pt extremely hard to redirect, but other than her chronic pain, she does not seem to have any acute complaints. Review of Systems Date Seen by Provider: Dec 21, 2017 Time Seen by Provider: 15:39 Focused Exam Lactate Level 12/20/17 13:14: Lactic Acid Level 3.50*H 12/20/17 15:21: Lactic Acid Level 1.54 Objective Exam Last Set of Vital Signs Vital Signs Date Time Temp Pulse Resp B/P (MAP) Pulse Ox O2 Delivery O2 Flow Rate FiO2 12/21/17 03:44 98.2 85 18 169/69 (102) 95 Room Air 12/20/17 20:07 21 Capillary Refill : Less Than 3 Seconds I&O Intake and Output 12/21/17 00:00 Intake Total 1440 ml Output Total 300 ml Balance 1140 ml Intake Oral 440 ml IV Total 1000 ml Output Urine Total 300 ml Daily Weight Change No General: Alert, Oriented X3, Cooperative, No Acute Distress HEENT: Atraumatic, EOMI, Mucous Memb Moist/[place] Neck: Supple, No Thyromegaly Lungs: Other (diminished with scattered wheezing) Heart: Normal S1, Normal S2, Other (irregular) Abdomen: Normal Bowel Sounds, Soft, Other (mild tenderness to palpation in lower quadrants) Extremities: No Cyanosis, No Edema, Other (pulses irregular) Skin: No Rashes, No Significant Lesion Neuro: Normal Speech, Normal Tone, Cranial Nerves 3-12 NL Psych/Mental Status: Mental Status NL, Mood NL Results/Procedures Lab Laboratory Tests 12/20/17 12:45: Urine Color YELLOW, Urine Clarity CLEAR, Urine pH 5, Urine Specific [place] 1.015L, Urine Protein 3+H, Urine Glucose (UA) NEGATIVE, Urine Ketones NEGATIVE, Urine Nitrite POSITIVEH, Urine Bilirubin 2+H, Urine Urobilinogen 1, Urine Leukocyte Esterase 3+H, Urine RBC (Auto) 4+H, Urine RBC 2-5H, Urine WBC TNTCH, Urine Squamous Epithelial Cells NONE, Urine Renal Epithelial Cells NONE, Urine Crystals NONE, Urine Bacteria TRACE, Urine Casts NONE, Urine Mucus NEGATIVE, Urine Culture Indicated YES, Urine Opiates Screen POSITIVEH, Urine Oxycodone Screen NEGATIVE, Urine Methadone Screen NEGATIVE, Urine Propoxyphene Screen NEGATIVE, Urine Barbiturates Screen NEGATIVE, Ur Tricyclic Antidepressants Screen NEGATIVE, Urine Phencyclidine Screen NEGATIVE, Urine Amphetamines Screen NEGATIVE, Urine Methamphetamines Screen POSITIVEH, Urine Benzodiazepines Screen POSITIVEH, Urine Cocaine Screen NEGATIVE, Urine Cannabinoids Screen NEGATIVE 12/20/17 13:14: White Blood Count 7.6, Red Blood Count 3.68L, Hemoglobin 13.0, Hematocrit 39, Mean Corpuscular Volume 105H, Mean Corpuscular Hemoglobin 35H, Mean Corpuscular Hemoglobin Concent 34, Red Cell Distribution Width 13.1, Platelet Count 199, Mean Platelet Volume 10.0, Neutrophils (%) (Auto) 69, Lymphocytes (%) (Auto) 22 , Monocytes (%) (Auto) 8, Eosinophils (%) (Auto) 0, Basophils (%) (Auto) 1, Neutrophils # (Auto) 5.2, Lymphocytes # (Auto) 1.7, Monocytes # (Auto) 0.6, Eosinophils # (Auto) 0.0, Basophils # (Auto) 0.0, Sodium Level 132L, Potassium Level 3.8, Chloride Level 104, Carbon Dioxide Level 17L, Anion Gap 11, Blood Urea Nitrogen 8, Creatinine 0.84, Estimat Glomerular Filtration Rate > 60, BUN/ Creatinine Ratio 10, Glucose Level 138H, Lactic Acid Level 3.50*H, Calcium Level 9.3, Corrected Calcium 9.5, Total Bilirubin 0.3, Aspartate Amino Transf ( AST/SGOT) 43H, Alanine Aminotransferase (ALT/SGPT) 51, Alkaline Phosphatase 72, B-Type Natriuretic Peptide 54.3, Total Protein 6.6, Albumin 3.7, Serum Alcohol < 10 12/20/17 14:08: Prothrombin Time 13.2, INR Comment 1.0, Activated Partial Thromboplast Time 26 12/20/17 15:21: Lactic Acid Level 1.54 Microbiology 12/20/17 Urine Culture - Preliminary, Resulted Sent To [facility] Assessment/Plan Assessment/Plan (1) Severe sepsis (2) Urinary tract infection Status: Acute Qualifiers: Qualified Codes: N30.00 - Acute cystitis without hematuria (3) Hypertension Status: Chronic Assessment & Plan: 12/21 -strong family history of early CAD -pt states "no one can figure out why her blood pressure is out of control" -arrhythmia noted on exam, pt asked if history, states that she saw Dr. King once and she noted the arrhythmia, but denies any diagnosis or workup -on home med list, patient has blood pressure medication listed as PRN, however the clinic records that her dose was supposed to be increased to BID due to her uncontrolled HTN --> strongly suspect that pt's reported wild changes in her blood pressure are due to her irregular pulse and the automatic cuff's inability to obtain an accurate pressure. Pt confirms that the majority of the time she has these changes, she is asymptomatic. -earlier today, pt had significantly elevated blood pressure with automatic cuff , but manual pressure reveals normotensive -resume home blood pressure medication -confirm abnormal pressures with manual pressure Qualifiers: Qualified Codes: I10 - Essential (primary) hypertension (4) Chronic abdominal pain Status: Chronic (5) PTSD (post-traumatic stress disorder) Status: Chronic (6) IBS (irritable bowel syndrome) Status: Chronic Qualifiers: Qualified Codes: K58.1 - Irritable bowel syndrome with constipation (7) Arrhythmia Assessment & Plan: 12/21 -EKG -Telemetry Clinical Quality Measures DVT/VTE Risk/Contraindication: Risk Factor Score Per Nursin RFS Level Per Nursing on Admit: 4+=Very High Copy Copies To 1: [facility]/RAVINDRA CALDERON DO Dec 21, 2017 08:14
[2017-12-21] MEDS: PHENAZOPYRIDINE 100 MG (PYRIDIUM) TABLET PO SCH ×3 (08:24→18:43)
[2017-12-21] MEDS: RT-ALBUTEROL/IPRATROPIUM 3 ML (DUONEB) VIAL INH SCH ×2 (08:49→20:07)
[2017-12-21 08:50] LABS: BASOPHILS % (AUTO) 1 % (0-10); EOSINOPHILS # (AUTO) 0.1 10^3/uL (0.0-0.3); EOSINOPHILS % (AUTO) 2 % (0-10); HEMATOCRIT 36 % (35-52); HEMOGLOBIN 11.8 G/DL (11.5-16.0); LYMPHOCYTES # (AUTO) 2.2 X 10^3 (1.0-4.0); LYMPHOCYTES % (AUTO) 49 % (12-44); MEAN CORPUSCULAR HEMOGLOBIN 34 PG (25-34); MEAN CORPUSCULAR HGB CONC 33 G/DL (32-36); MEAN CORPUSCULAR VOLUME 106 FL (80-99); MEAN PLATELET VOLUME 9.9 FL (7.4-10.4); MONOCYTES # (AUTO) 0.5 X 10^3 (0.0-1.0); MONOCYTES % (AUTO) 12 % (0-12); NEUTROPHILS # (AUTO) 1.7 X 10^3 (1.8-7.8); NEUTROPHILS % (AUTO) 37 % (42-75); PLATELET COUNT 187 10^3/uL (130-400); RED BLOOD COUNT 3.43 10^6/uL (4.35-5.85); RED CELL DISTRIBUTION WIDTH 13.5 % (10.0-14.5); WHITE BLOOD COUNT 4.6 10^3/uL (4.3-11.0)
[2017-12-21 09:20] LABS: ALANINE AMINOTRANSFERASE 42 U/L (0-55); ALBUMIN 3.5 GM/DL (3.2-4.5); ALKALINE PHOSPHATASE 63 U/L (40-136); BILIRUBIN,TOTAL 0.3 MG/DL (0.1-1.0); BUN/CREATININE RATIO 8; CALCIUM 8.6 MG/DL (8.5-10.1); CARBON DIOXIDE 19 MMOL/L (21-32); CHLORIDE 113 MMOL/L (98-107); CREATININE SERUM 0.74 MG/DL (0.60-1.30); GFR ESTIMATED > 60; GLUCOSE 85 MG/DL (70-105); MAGNESIUM 1.8 MG/DL (1.8-2.4); POTASSIUM 3.5 MMOL/L (3.6-5.0); SODIUM 139 MMOL/L (135-145); TOTAL PROTEIN 5.7 GM/DL (6.4-8.2)
[2017-12-21] MEDS: cefTRIAXone INJECTION 1,000 MG in NS (IVPB) 50 ML IV SCH (09:45)
[2017-12-21] MEDS ORDERED: oxyCODONE/APAP 5/325MG (PERCOCET 5) TABLET PO PRN (11:30)
[2017-12-21 12:00] VITALS: BP 136/61
[2017-12-21] MEDS ORDERED: KCL 20 MEQ TAB (K-DUR) PO NR (15:30)
[2017-12-21 16:59] VITALS: BP 178/80
[2017-12-21] MEDS ORDERED: SALINE NASAL SPRAY (OCEAN) 45 ML BTL PRN (17:30)
[2017-12-21] MEDS ORDERED: [UNRECOGNIZED DRUG - OTHER] NS PRN (17:30)
[2017-12-21] MEDS ORDERED: hydrALAZINE (APESOLINE) 20 MG/ML VIAL IV NR (17:30)
[2017-12-21] MEDS ORDERED: SODIUM CHLORIDE NS PRN (17:30)
[2017-12-21] MEDS ORDERED: meTOproloL SUCCINATE 50 MG (TOPROL XL) TAB PO PRN (17:30)
[2017-12-21 20:34] VITALS: BP 124/60
[2017-12-21] MEDS: oxyCODONE/APAP 5/325MG (PERCOCET 5) TABLET PO PRN ×2 (20:49→22:42)
[2017-12-21] MEDS ORDERED: CHLORDIAZEPOXIDE PO SCH (21:00)
[2017-12-21] MEDS: MELATONIN 3 MG TABLET PO PRN (22:41)
[2017-12-22 00:05] VITALS: BP 118/58
[2017-12-22] MEDS: hydrOXYzine (ATARAX) 10 MG TAB PO PRN ×3 (01:23→21:31)
[2017-12-22] MEDS: NS IV 1000 ML 1,000 ML IV SCH ×4 (01:26→23:26)
[2017-12-22 04:11] VITALS: BP 121/65
[2017-12-22] MEDS: CATHETER FLUSH 10 ML SYR IV SCH ×3 (06:34→21:37)
[2017-12-22] MEDS: PANTOPRAZOLE 40 MG (PROTONIX) TAB PO SCH (06:35)
[2017-12-22] MEDS: predniSONE 20 MG TAB PO SCH (06:35)
[2017-12-22] MEDS: oxyCODONE/APAP 5/325MG (PERCOCET 5) TABLET PO PRN ×3 (06:36→20:06)
[2017-12-22 07:05] LABS: ALANINE AMINOTRANSFERASE 41 U/L (0-55); ALBUMIN 3.1 GM/DL (3.2-4.5); ALKALINE PHOSPHATASE 60 U/L (40-136); BILIRUBIN,TOTAL 0.2 MG/DL (0.1-1.0); BUN/CREATININE RATIO 6; CALCIUM 8.5 MG/DL (8.5-10.1); CARBON DIOXIDE 19 MMOL/L (21-32); CHLORIDE 113 MMOL/L (98-107); CREATININE SERUM 0.66 MG/DL (0.60-1.30); GFR ESTIMATED > 60; GLUCOSE 84 MG/DL (70-105); MAGNESIUM 1.9 MG/DL (1.8-2.4); POTASSIUM 3.7 MMOL/L (3.6-5.0); SODIUM 140 MMOL/L (135-145); TOTAL PROTEIN 5.6 GM/DL (6.4-8.2)
[2017-12-22 07:10] LABS: BASOPHILS # (AUTO) 0.1 10^3/uL (0.0-0.1); BASOPHILS % (AUTO) 1 % (0-10); EOSINOPHILS # (AUTO) 0.1 10^3/uL (0.0-0.3); EOSINOPHILS % (AUTO) 2 % (0-10); HEMATOCRIT 35 % (35-52); HEMOGLOBIN 11.5 G/DL (11.5-16.0); LYMPHOCYTES # (AUTO) 2.4 X 10^3 (1.0-4.0); LYMPHOCYTES % (AUTO) 51 % (12-44); MEAN CORPUSCULAR HEMOGLOBIN 35 PG (25-34); MEAN CORPUSCULAR HGB CONC 33 G/DL (32-36); MEAN CORPUSCULAR VOLUME 105 FL (80-99); MEAN PLATELET VOLUME 9.8 FL (7.4-10.4); MONOCYTES # (AUTO) 0.6 X 10^3 (0.0-1.0); MONOCYTES % (AUTO) 13 % (0-12); NEUTROPHILS # (AUTO) 1.5 X 10^3 (1.8-7.8); NEUTROPHILS % (AUTO) 32 % (42-75); PLATELET COUNT 175 10^3/uL (130-400); RED BLOOD COUNT 3.29 10^6/uL (4.35-5.85); RED CELL DISTRIBUTION WIDTH 13.2 % (10.0-14.5); WHITE BLOOD COUNT 4.7 10^3/uL (4.3-11.0)
[2017-12-22 08:00] VITALS: BP 159/72
[2017-12-22] MEDS: RT-ALBUTEROL/IPRATROPIUM 3 ML (DUONEB) VIAL INH SCH ×2 (08:20→20:02)
[2017-12-22] MEDS ORDERED: NON-FORMULARY MEDICATION 1 EA EA (Amlodipine Besylate 5 MG) PO SCH (09:00)
[2017-12-22] MEDS ORDERED: LANSOPRAZOLE 15 MG PO SCH (09:00)
[2017-12-22] MEDS: cefTRIAXone INJECTION 1,000 MG in NS (IVPB) 50 ML IV SCH (09:14)
[2017-12-22] MEDS: amLODIPine 5 MG (NORVASC) TAB PO SCH (09:15)
[2017-12-22] MEDS: meTOproloL SUCCINATE 50 MG (TOPROL XL) TAB PO SCH (09:15)
[2017-12-22] MEDS: PHENAZOPYRIDINE 100 MG (PYRIDIUM) TABLET PO SCH ×3 (09:16→18:04)
[2017-12-22 12:00] VITALS: BP 141/67
[2017-12-22 16:00] VITALS: BP 134/71
--- NOTE | 2017-12-22 20:11 | Discharge Summary ---
Diagnosis/Chief Complaint Date of Admission Dec 20, 2017 at 15:59 Date of Discharge Discharge Summary-Simple/Stand Consultations Discharge Physical Examination Allergies: Coded Allergies: Sulfa (Sulfonamide Antibiotics) (Verified Allergy, Unknown, 05/29/16) adhesive (Verified Allergy, Unknown, 05/29/16) fentanyl adhesive meperidine (Verified Allergy, Unknown, HALLUCINATIONS, 05/29/16) pregabalin (Verified Allergy, Unknown, 07/10/16) Vitals & I&Os Vital Sign - Last 12Hours Date Time Temp Pulse Resp B/P (MAP) Pulse Ox O2 Delivery O2 Flow Rate FiO2 12/22/17 20:02 96 Room Air 12/22/17 16:00 96.2 75 24 134/71 (92) 12/20/17 20:07 21 Intake and Output 12/22/17 00:00 Intake Total 1660 ml Output Total 2200 ml Balance -540 ml Hospital Course See final discharge diagnosis. Discharge Instructions to patient/family Please see electronic discharge instructions given to patient. Discharge Medications Reviewed and agree with Discharge Medication list on patient's Discharge Instruction sheet Clinical Quality Measures DVT/VTE Risk/Contraindication: Risk Factor Score Per Nursin RFS Level Per Nursing on Admit: 3=High RAVINDRA ROB DO Dec 22, 2017 20:11
[2017-12-22 20:15] VITALS: BP 177/78
[2017-12-22] MEDS ORDERED: MELA3TAB PO (20:17)
[2017-12-22] MEDS ORDERED: PRD20T PO (20:17)
[2017-12-22] MEDS ORDERED: TIZA4TAB3 PO (20:17)
[2017-12-22] MEDS ORDERED: OXYC-471 PO (20:17)
[2017-12-22] MEDS ORDERED: METO-370 PO (20:17)
--- NOTE | 2017-12-22 20:28 | Discharge Instructions ---
Discharge [facility] [place] Discharge Medications New, Converted or Re-Newed RX: Other (transmitted to pharmacy - [facility] per patient request, controlled medication printed and in chart) New Medications: Melatonin (Melatonin) 3 Mg Tablet 3 MG PO HS PRN for INSOMNIA for 30 Days, #30 TAB Oxycodone HCl/Acetaminophen (Oxycodone-Acetaminophen 5-325) 1 Each Tablet 1-2 TAB PO Q6HR PRN for PAIN-SEVERE for 5 Days, #30 TAB Prednisone (Prednisone) 20 Mg Tab 40 MG PO DAILY@0700 for 3 Days, #6 TAB Tizanidine HCl (Tizanidine HCl) 4 Mg Tablet 4 MG PO TID for 7 Days, #21 TAB Changed Medications: Metoprolol Succinate (Metoprolol Succinate) 50 Mg Tab.er.24h 50 MG PO DAILY for 30 Days, TAB (Changed from: Removed Reason) Continued Medications: Acetaminophen with Codeine (Acetaminophen-Cod #3 Tablet) 1 Each Tablet 1 TAB PO Q6H PRN for PAIN-MODERATE, TAB Albuterol Sulfate (Ventolin Hfa) 1 Puff Puff 2 PUFF IH Q4H PRN for SHORTNESS OF BREATH, PUFF 1 PUFF = 90 MCG Amlodipine Besylate (Amlodipine Besylate) 5 Mg Tablet 5 MG PO DAILY, TAB Chlordiazepoxide HCl (Chlordiazepoxide HCl) 10 Mg Capsule 20 MG PO TID, CAP TAKES 2 (10MG) CAPSULES Dicyclomine HCl (Dicyclomine HCl) 20 Mg Tablet 20 MG PO TID PRN for IBS, TAB Lansoprazole (Prevacid 24Hr) 15 Mg Capsule.dr 15 MG PO DAILY, CAP Pantoprazole Sodium (Pantoprazole Sodium) 40 Mg Tablet.dr 40 MG PO DAILY, TAB Sodium Chloride (Saline Nasal [place]) 30 Ml [place] 1-2 SPRAYS NS DAILY PRN for CONGESTION, SPRAY Patient Instructions Patient Instructions -medications as directed -cardiology follow up as outpatient -clinic follow up next week -keep appointment with Dr. Schultz for endoscopy Goal/Follow Up Appt: -clinic follow up next week, pt does not want to continue to see Yoni FULLER, so will have scheduled with another provider; discussed that there is a process for changing your PCP at the clinic that she can complete if she decides that she would like to change her PCP -Cardiology 1-2 weeks -keep appt as scheduled with Dr. Schultz Return to The [facility] For: chest pain or pressure, shortness of breath out of normal for you and not relieved by rest, nausea or vomiting that lasts more than 24 hours and keeps you from taking medications and keeping down clear liquids, temp >101 that lasts more than 2-3 days and is not relieved by tylenol, severe pain uncontrolled by medications, if directed by supervisor television chassis repair provider, or any emergent complaints or concerns Activity & Diet Discharge Diet: Cardiac Diet Activity as Tolerated: Yes Orders-Post D/C & Referrals Cardiology -- arrhythmia on exam, EKG and tele show sinus rhythum with multiple PAC RAVINDRA ROB DO Dec 22, 2017 20:25
[2017-12-23] VITALS: BP 149/67
[2017-12-23 01:01] VITALS: BP 149/67
[2017-12-23] MEDS: oxyCODONE/APAP 5/325MG (PERCOCET 5) TABLET PO PRN ×2 (02:03→08:13)
[2017-12-23] MEDS: MELATONIN 3 MG TABLET PO PRN (03:29)
[2017-12-23 04:00] VITALS: BP 148/70
[2017-12-23] MEDS: PANTOPRAZOLE 40 MG (PROTONIX) TAB PO SCH (06:21)
[2017-12-23] MEDS: predniSONE 20 MG TAB PO SCH (06:21)
[2017-12-23] MEDS: CATHETER FLUSH 10 ML SYR IV SCH (06:21)
[2017-12-23 08:00] VITALS: BP 175/79
[2017-12-23] MEDS: amLODIPine 5 MG (NORVASC) TAB PO SCH (08:13)
[2017-12-23] MEDS: PHENAZOPYRIDINE 100 MG (PYRIDIUM) TABLET PO SCH (08:13)
[2017-12-23] MEDS: meTOproloL SUCCINATE 50 MG (TOPROL XL) TAB PO SCH (08:13)
[2017-12-23] MEDS: hydrOXYzine (ATARAX) 10 MG TAB PO PRN (08:13)
[2017-12-23] MEDS: cefTRIAXone INJECTION 1,000 MG in NS (IVPB) 50 ML IV SCH (08:14)
[2017-12-23 09:25] VITALS: BP 175/79
[2017-12-23 09:38] VITALS: BP 130/78
== END 2017-12-23 09:25 | disposition home or self-care (01) | DRG 872 ==
LOC: EDUNIT# 12:35 → ER 12:37 → ICU 15:59 → 4TH 17:28
PROVIDERS: ADMIT Family Medicine; ATTEND Family Medicine
DX: A41.9 Sepsis, unspecified organism (principal); N30.00 Acute cystitis without hematuria; I49.1 Atrial premature depolarization; J43.9 Emphysema, unspecified; F17.210 Nicotine dependence, cigarettes, uncomplicated; J30.2 Other seasonal allergic rhinitis; I10 Essential (primary) hypertension; G43.909 Migraine, unspecified, not intractable, without status migrainosus; K21.9 Gastro-esophageal reflux disease without esophagitis; K59.09 Other constipation; K58.9 Irritable bowel syndrome, unspecified; M81.0 Age-related osteoporosis without current pathological fracture; M19.91 Primary osteoarthritis, unspecified site; M79.7 Fibromyalgia; F41.9 Anxiety disorder, unspecified; F43.10 Post-traumatic stress disorder, unspecified; F32.9 Major depressive disorder, single episode, unspecified; Z87.442 Personal history of urinary calculi; Z86.59 Personal history of other mental and behavioral disorders
CPT/HCPCS: 36415; 71045; 80053; 80306; 80320; 81000; 83605; 83735; 83880; 85025; 85610; 85730; 86141; 87040; 87088; 93005; 94640; 94760; 96361; 96374; 96375

== ENCOUNTER 2017-12-28 14:02 | Outpatient (CLI) | payer MEDICARE, MEDICAID ==
[~2017-12-28] VITALS: Ht 162.6 cm; Wt 61.0 kg
[~2017-12-28 14:02] MED LIST changes: +ACET1TAB43 PO; +AMLO5TAB2 PO; +LANS15CA PO; +MELA3TAB PO; +METO-370 PO; +PANT40TA3 PO; +SODI30SP2 NS; +TIZA4TAB3 PO
== END 2017-12-28 14:57 | disposition home or self-care (01) ==
LOC: PREOP 14:02
PROVIDERS: ATTEND Surgery
DX: Z01.818 Encounter for other preprocedural examination (principal)

== ENCOUNTER 2017-12-30 17:50 | Day surgery (SDC) | payer MEDICARE, MEDICAID ==
[~2017-12-30] VITALS: Ht 162.6 cm; Wt 60.3 kg
[~2017-12-30 17:50] MED LIST changes: -AMLO10TA2 PO; +AMLO10TA6 PO; -AMLO5TAB2 PO; +AMLO5TAB7 PO; -LOSA100T28 PO; +LOSA100T8 PO; -OXYC-197 PO; -OXYC-202 PO; +OXYC1TAB12 PO; +OXYC1TAB87 PO
[2017-12-30] MEDS ORDERED: NS IV 1000 ML 1,000 ML ONE (18:00)
[2017-12-30] MEDS ORDERED: cefTRIAXone FOR IV USE 1,000 MG in NS (IVPB) 50 ML IV ONE (18:15)
[2017-12-30] MEDS ORDERED: KETOROLAC 30 MG/ML VIAL IVP ONE (18:15)
[2017-12-30] MEDS ORDERED: ONDANSETRON 4 MG/2 ML (SDV) Z0FRAN IV PRN ×2 (18:15→22:00)
[2017-12-30] MEDS ORDERED: NS IV 1000 ML 2,000 ML IV ONE (18:15)
[2017-12-30] MEDS ORDERED: ACETAMINOPHEN 500 MG TAB (TYLENOL) PO PRN ×2 (18:15→22:00)
[2017-12-30 18:21] LABS: BASOPHILS % (AUTO) 1 % (0-10); EOSINOPHILS # (AUTO) 0.1 10^3/uL (0.0-0.3); EOSINOPHILS % (AUTO) 1 % (0-10); HEMATOCRIT 35 % (35-52); HEMOGLOBIN 11.5 G/DL (11.5-16.0); LYMPHOCYTES # (AUTO) 2.2 X 10^3 (1.0-4.0); LYMPHOCYTES % (AUTO) 26 % (12-44); MEAN CORPUSCULAR HEMOGLOBIN 35 PG (25-34); MEAN CORPUSCULAR HGB CONC 33 G/DL (32-36); MEAN CORPUSCULAR VOLUME 105 FL (80-99); MEAN PLATELET VOLUME 9.6 FL (7.4-10.4); MONOCYTES # (AUTO) 1.4 X 10^3 (0.0-1.0); MONOCYTES % (AUTO) 17 % (0-12); NEUTROPHILS # (AUTO) 4.8 X 10^3 (1.8-7.8); NEUTROPHILS % (AUTO) 56 % (42-75); PLATELET COUNT 211 10^3/uL (130-400); RED BLOOD COUNT 3.32 10^6/uL (4.35-5.85); WHITE BLOOD COUNT 8.4 10^3/uL (4.3-11.0)
[2017-12-30 18:25] LABS: INR 0.9 (0.8-1.4); PROTHROMBIN TIME PATIENT 12.5 SEC (12.2-14.7)
--- NOTE | 2017-12-30 18:33 | ED General ---
General Chief Complaint: Cardiac/General Problems Stated Complaint: LOW BLOOD PRESSURE Source of Information: Patient, Family Exam Limitations: No Limitations History of Present Illness Date Seen by Provider: Dec 30, 2017 Time Seen by Provider: 18:01 Initial Comments Patient presents to ER by private conveyance with her and a chief complaint that she woke up this morning stating that her urine looked like soup and she had some pain in her lower right quadrant. She has a little bit of nausea. She says she has had kidney stones before. 19 days ago she says she just got over a urinary tract infection with Macrobid. She says she has a history of COPD and other significant medical problems. She is not having any chest pain shortness of breath fevers chills but she does feel very weak and tired and says that she measured her blood pressure almost very low. She has a history of hysterectomy and adhesiolysis surgeries on her abdomen. Allergies and Home Medications Allergies Coded Allergies: Sulfa (Sulfonamide Antibiotics) (Verified Allergy, Unknown, 05/29/16) adhesive (Verified Allergy, Unknown, 05/29/16) fentanyl adhesive meperidine (Verified Allergy, Unknown, HALLUCINATIONS, 05/29/16) pregabalin (Verified Allergy, Unknown, 07/10/16) Home Medications Acetaminophen with Codeine 1 Each Tablet, 1 TAB PO Q6H PRN for PAIN-MODERATE, ( Reported) Albuterol Sulfate 1 Puff Puff, 2 PUFF IH Q4H PRN for SHORTNESS OF BREATH, ( Reported) 1 PUFF = 90 MCG Amlodipine Besylate 5 Mg Tablet, 5 MG PO DAILY, (Reported) Chlordiazepoxide HCl 10 Mg Capsule, 20 MG PO TID, (Reported) TAKES 2 (10MG) CAPSULES Dicyclomine HCl 20 Mg Tablet, 20 MG PO TID PRN for IBS, (Reported) Lansoprazole 15 Mg Capsule.dr, 15 MG PO DAILY, (Reported) Melatonin 3 Mg Tablet, 3 MG PO HS PRN for INSOMNIA Prescribed by: RAVINDRA ROB on 12/22/172016 Metoprolol Succinate 50 Mg Tab.er.24h, 50 MG PO DAILY Prescribed by: RAVINDRA ROB on 12/22/172016 Oxycodone HCl/Acetaminophen 1 Each Tablet, 1-2 TAB PO Q6HR PRN for PAIN-SEVERE Prescribed by: RAVINDRA ROB on 12/22/172016 Pantoprazole Sodium 40 Mg Tablet.dr, 40 MG PO DAILY, (Reported) Prednisone 20 Mg Tab, 40 MG PO DAILY@0700 Prescribed by: RAVINDRA ROB on 12/22/172016 Sodium Chloride 30 Ml [place], 1-2 SPRAYS NS DAILY PRN for CONGESTION, (Reported) Tizanidine HCl 4 Mg Tablet, 4 MG PO TID Prescribed by: RAVINDRA ROB on 12/22/172016 Patient Home Medication List Home Medication List Reviewed: Yes Review of Systems Constitutional: chills; No fever; malaise, weakness EENTM: No hearing loss, No ear pain Respiratory: No cough, No phlegm, No short of breath Cardiovascular: No chest pain, No edema Gastrointestinal: No abdominal pain, No constipation, No diarrhea, No nausea Genitourinary: No discharge; dysuria; No hematuria : No Psychiatric/Neurological: Denies Anxiety, Denies Depressed Past Wowxcmj-Szdgzu-Szqffl Hx Patient Social History Alcohol Use: Denies Use Recreational Drug Use: No Smoking Status: Current Everyday Smoker Type Used: Cigarettes 2nd Hand Smoke Exposure: Yes Recent Foreign Travel: No Contact w/Someone Who Travel: No Recent Hopitalizations: No Immunizations Up To Date Tetanus Booster (TDap): Less than 5yrs Date of Pneumonia Vaccine: Feb 27, 2017 Date of Influenza Vaccine: Feb 27, 2017 Seasonal Allergies Seasonal Allergies: Yes Past Medical History Surgeries: Yes (ADHESIOLYSIS X3, LEFT FOOT X2, C/S X2, HYSTERECTOMY, RIGHT KNEE ) Abdominal, Section, Hysterectomy, Joint Replacement, Orthopedic, Tonsillectomy Respiratory: Yes Pneumonia, COPD, Emphysema Currently Using CPAP: No Currently Using BIPAP: No Cardiac: Yes Hypertension Neurological: No Headaches /Migraines 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 Disorders: No Sexually Transmitted Disease: No HIV/AIDS: No Genitourinary: Yes Kidney Infection, Kidney Stones, UTI-Chronic Gastrointestinal: Yes Gastroesophageal Reflux, Chronic Constipation, Irritable Bowel Musculoskeletal: Yes ("KNEE AND BACK PROBLEMS" "BULGING DISCS" ) Degenerate Disk Disease, Osteoporosis, Arthritis, Fibromyalgia, Chronic Back Pain Endocrine: No HEENT: No Loss of Vision: Bilateral Hearing Impairment: Denies Cancer: No Psychosocial: Yes (Pt states she had Bulemia years ago and lowest weight was 94 lbs ) Anxiety, PTSD, Depression Integumentary: No Blood Disorders: Yes (HX OF ANEMIA) Adverse Reaction/Blood Tranf: No (HAS FLUSHING BUT NO REACTION) Family Medical History Abdominal aortic aneurysm Alzheimer's disease 19 MOTHER Cardiovascular disease 19 FATHER ( AT 46 FROM HEART ATTACK) G8 SISTER Hypercholesterolemia 19 FATHER Hypertension 19 FATHER 19 MOTHER Myocardial infarction 19 FATHER Thyroid disease 19 MOTHER G8 SISTER Physical Exam-Suspected Sepsis Physical Exam Vital Signs Vital Signs - First Documented 12/30/17 18:33 Temp 96.5 Pulse 54 Resp 16 B/P (MAP) 86/30 (48) Pulse Ox 99 Capillary Refill : Height, Weight, BMI Height: 5'4.00" Weight: 134lbs. 7.0oz. 60.885221ek; 23.1 BMI Method:Stated General Appearance: No Apparent Distress, WD/WN Eyes: Bilateral Eye Normal Inspection, Bilateral Eye PERRL, Bilateral Eye EOMI HEENT: PERRL/EOMI, Pharynx Normal; No Moist Mucous Membranes Neck: Full Range of Motion, Normal Inspection Respiratory: Chest Non Tender, Lungs Clear, Normal Breath Sounds, No Accessory Muscle Use, No Respiratory Distress Cardiovascular: Regular Rate, Rhythm, Normal Peripheral Pulses Gastrointestinal: Normal Bowel Sounds, Guarding; No Rebound; Tenderness (right sided) Extremity: Normal Capillary Refill, Non Tender, No Calf Tenderness 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: Alert, Oriented x3, director of 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 II-XII Norm as Tested Skin: normal color, warm/dry; No rash Focused Exam Lactate Level 12/30/17 17:58: Lactic Acid Level 1.85 Lactic Acid Level Laboratory Tests Test 12/30/17 17:58 Lactic Acid Level 1.85 MMOL/L (0.50-2.00) Progress/Results/Core Measures Suspected Sepsis SIRS Temperature: Pulse: Respiratory Rate: Laboratory Tests 12/30/17 17:58: White Blood Count 8.4 Blood Pressure / Mean: 12/30/17 17:58: Lactic Acid Level 1.85 Laboratory Tests 12/30/17 17:58: Creatinine 0.85, INR Comment 0.9, Platelet Count 211, Total Bilirubin 0.4 Results/Orders Lab Results Laboratory Tests Test 12/30/17 17:58 12/30/17 18:50 Range/Units White Blood Count 8.4 4.3-11.0 10^3/uL Red Blood Count 3.32 L 4.35-5.85 10^6/uL Hemoglobin 11.5 11.5-16.0 G/DL Hematocrit 35 35-52 % Mean Corpuscular Volume 105 H 80-99 FL Mean Corpuscular Hemoglobin 35 H 25-34 PG Mean Corpuscular Hemoglobin Concent 33 32-36 G/DL Red Cell Distribution Width 13.0 10.0-14.5 % Platelet Count 211 130-400 10^3/uL Mean Platelet Volume 9.6 7.4-10.4 FL Neutrophils (%) (Auto) 56 42-75 % Lymphocytes (%) (Auto) 26 12-44 % Monocytes (%) (Auto) 17 H 0-12 % Eosinophils (%) (Auto) 1 0-10 % Basophils (%) (Auto) 1 0-10 % Neutrophils # (Auto) 4.8 1.8-7.8 X 10^3 Lymphocytes # (Auto) 2.2 1.0-4.0 X 10^3 Monocytes # (Auto) 1.4 H 0.0-1.0 X 10^3 Eosinophils # (Auto) 0.1 0.0-0.3 10^3/uL Basophils # (Auto) 0.0 0.0-0.1 10^3/uL Prothrombin Time 12.5 12.2-14.7 SEC INR Comment 0.9 0.8-1.4 Activated Partial Thromboplast Time 29 24-35 SEC Sodium Level 132 L 135-145 MMOL/L Potassium Level 3.3 L 3.6-5.0 MMOL/L Chloride Level 98 98-107 MMOL/L Carbon Dioxide Level 25 21-32 MMOL/L Anion Gap 9 5-14 MMOL/L Blood Urea Nitrogen 9 7-18 MG/DL Creatinine 0.85 0.60-1.30 MG/DL Estimat Glomerular Filtration Rate > 60 BUN/Creatinine Ratio 11 Glucose Level 155 H 70-105 MG/DL Lactic Acid Level 1.85 0.50-2.00 MMOL/L Calcium Level 8.8 8.5-10.1 MG/DL Corrected Calcium 9.4 8.5-10.1 MG/DL Total Bilirubin 0.4 0.1-1.0 MG/DL Aspartate Amino Transf (AST/SGOT) 31 5-34 U/L Alanine Aminotransferase (ALT/SGPT) 39 0-55 U/L Alkaline Phosphatase 76 40-136 U/L Troponin I < 0.30 <0.30 NG/ML Total Protein 6.1 L 6.4-8.2 GM/DL Albumin 3.3 3.2-4.5 GM/DL Urine Color YANET H Urine Clarity CLEAR Urine pH 7 5-9 Urine Specific [place] 1.010 L 1.016-1.022 Urine Protein 1+ H NEGATIVE Urine Glucose (UA) NEGATIVE NEGATIVE Urine Ketones NEGATIVE NEGATIVE Urine Nitrite NEGATIVE NEGATIVE Urine Bilirubin NEGATIVE NEGATIVE Urine Urobilinogen NORMAL NORMAL MG/DL Urine Leukocyte Esterase 1+ H NEGATIVE Urine RBC (Auto) 2+ H NEGATIVE Urine RBC 10-25 H /HPF Urine WBC 0-2 /HPF Urine Squamous Epithelial Cells 2-5 /HPF Urine Crystals NONE /LPF Urine Bacteria TRACE /HPF Urine Casts PRESENT /LPF Urine Hyaline Casts 10-25 H /LPF Urine Mucus NEGATIVE /LPF Urine Culture Indicated NO Urine Opiates Screen POSITIVE H NEGATIVE Urine Oxycodone Screen NEGATIVE NEGATIVE Urine Methadone Screen NEGATIVE NEGATIVE Urine Propoxyphene Screen NEGATIVE NEGATIVE Urine Barbiturates Screen NEGATIVE NEGATIVE Ur Tricyclic Antidepressants Screen NEGATIVE NEGATIVE Urine Phencyclidine Screen NEGATIVE NEGATIVE Urine Amphetamines Screen NEGATIVE NEGATIVE Urine Methamphetamines Screen NEGATIVE NEGATIVE Urine Benzodiazepines Screen POSITIVE H NEGATIVE Urine Cocaine Screen NEGATIVE NEGATIVE Urine Cannabinoids Screen NEGATIVE NEGATIVE My Orders Orders - THANH MAO Cbc With Automated Diff (12/30/17 18:07) Comprehensive Metabolic Panel (12/30/17 18:07) Blood Culture (12/30/17 18:07) Sputum Culture (12/30/17 18:07) Urinalysis (12/30/17 18:07) Urine Culture (12/30/17 18:07) Protime With Inr (12/30/17 18:07) Partial Thromboplastin Time (12/30/17 18:07) Chest 1 View, Ap/Pa Only (12/30/17 18:07) Acetaminophen Tablet (Tylenol Tablet) (12/30/17 18:15) Saline Lock/Iv-Start (12/30/17 18:07) Saline Lock/Iv-Start (12/30/17 18:07) Ekg Tracing (12/30/17 18:07) Troponin I (12/30/17 18:07) Vital Signs Adult Sepsis Patie Q15M (12/30/17 18:07) Ondansetron Injection (Zofran Injectio (12/30/17 18:15) O2 (12/30/17 18:07) Remove Rings In Anticipation O (12/30/17 18:07) Lactic Acid Analyzer (12/30/17 18:07) Ns Iv 1000 Ml (Sodium Chloride 0.9%) (12/30/17 18:15) Ceftriaxone Injection (Rocephin Injectio (12/30/17 18:15) Ketorolac Injection (Toradol Injection) (12/30/17 18:15) Drug Screen Stat (Urine) (12/30/17 18:16) Ct Abd/Pelvis Wo(Kidney Stone) (12/30/17 18:33) Potassium Cl 10meq/50ml Ivpb (Kcl 10 Meq (12/30/17 19:00) Lidocaine 2% Bolus Syringe (Xylocaine Eleuterio (12/30/17 20:00) Ns (Ivpb) (Sodium Chloride 0.9% Ivpb Bag (12/30/17 20:15) Medications Given in ED Current Medications Medications Dose Ordered Sig/Lisa Route Start Time Stop Time Status Last Admin Dose Admin Acetaminophen 1,000 mg ONCE PRN PO 12/30/17 18:15 12/30/17 18:22 DC 12/30/17 18:22 1,000 MG Ceftriaxone Sodium 1000 mg/ Sodium Chloride 50 ml @ 100 mls/hr ONCE ONCE IV 12/30/17 18:15 12/30/17 18:44 DC 12/30/17 18:21 100 MLS/HR Ketorolac Tromethamine 10 mg ONCE ONCE IVP 12/30/17 18:15 12/30/17 18:17 DC 12/30/17 18:28 10 MG Lidocaine HCl 90 mg ONCE ONCE IV 12/30/17 20:00 12/30/17 20:01 DC 12/30/17 20:23 90 MG Ondansetron HCl 4 mg PRN PRN IV 12/30/17 18:15 12/30/17 18:22 DC 12/30/17 18:22 4 MG Potassium Chloride 50 ml @ 50 mls/hr ONCE ONCE IV 12/30/17 19:00 12/30/17 19:59 DC 12/30/17 19:15 50 MLS/HR Sodium Chloride 100 ml @ ud STK-MED ONCE .ROUTE 12/30/17 20:15 12/30/17 20:19 DC 12/30/17 20:24 300 MLS/HR Sodium Chloride 2,000 ml @ 2,000 mls/hr ONCE ONCE IV 12/30/17 18:15 12/30/17 19:14 DC 12/30/17 18:22 2,000 MLS/HR Vital Signs/I&O 12/30/17 18:33 Temp 96.5 Pulse 54 Resp 16 B/P (MAP) 86/30 (48) Pulse Ox 99 Capillary Refill : Progress Note #1: Time: 18:36 Progress Note Urosepsis Shock. We have given her 30 mL/kg bolus which is going to be rounding up to 2 L. We will also start her on Rocephin. Patient is mentating okay so or not to put her in Trendelenburg's. After giving her some fluid bolus her blood pressure has already improved up to move 101 systolic. She is very fluid responsive. Curiously the patient demonstrates basia indifference. Also her heart rate has been very slow in the 40s and 50s which is the opposite of what she expected for somebody with sepsis. Could indicate at least a partial cardiogenic source of her hypotension. Throughout her stay she has continued to be heart rate in the low 50s. Not sure of metoprolol 50 mg daily would explain this. Progress Note #2: Time: 19:53 Progress Note Patient is asking for something for pain but she is very somnolent and has a blood pressure still sitting around 99 systolic the entire time she's been here so very cautiously give her opiate pain medicine. Since she's on the monitor however we can try lidocaine 1.5 mg/kg. With the 8000 white count and on convincing urinalysis for infection we'll go ahead and cover her with Rocephin for now however this does not appear to be septic and her low blood pressure may be more cardiogenic given the bradycardia. We will discuss with cardiology and her primary care about bringing her in the hospital on IV fluids monitoring and ultrasound and the gallbladder in the morning. If we don't find a reason for infection then hopefully cardiology will help guide us on her inappropriate bradycardia and hypotension. At this time this does not appear to be septic shock. Cardiogenic shock. ECG Initial ECG Impression Date: Dec 30, 2017 Initial ECG Impression Time: 17:57 Initial ECG Rate: 60 Initial ECG Rhythm: Normal Sinus Initial ECG Intervals: QT (473) Initial ECG Impression: Normal Initial ECG Comparisson: No Previous ECG Available Comment No ST elevation or depression. Diagnostic Imaging Diagonstic Imaging: Xray Plain Films/CT/US/NM/MRI: chest (1v) Comments [place]IA [place], [place] NAME: MANJINDER HUMPHRIES [facility] REC#: [id number] PT STATUS: REG ER : 1950 PHYSICIAN: THANH MAO MD ADMIT DATE: 12/30/17/ER Draft Date of Exam:12/30/17 CHEST 1 VIEW, AP/PA ONLY INDICATION: Hypotension. TECHNIQUE: Single view chest 6:17 p.m. CORRELATION STUDY: 12/20/2017 FINDINGS: The heart size, mediastinal configuration and pulmonary vascularity are within normal limits. Calcification of the aortic arch. Lung reis slightly hyperinflated but overall clear. No infiltrate. IMPRESSION: 1. Generally stable chest demonstrates no acute cardiopulmonary abnormality. Dictated on workstation # [id number] Dict: 12/30/17 1827 Trans: 12/30/17 1835 KB [id number] Interpreted by: LINA GARCÍA DO Electronically signed by: Reviewed: Reviewed by Me Diagonstic Imaging: CT (kidney stone protocol) Plain Films/CT/US/NM/MRI: abdomen, pelvis Comments [facility] [place] [place] NAME: MANJINDER HUMPHRIES [facility] REC#: [id number] PT STATUS: REG ER : 1950 PHYSICIAN: THANH MAO MD ADMIT DATE: 12/30/17/ER Draft Date of Exam:12/30/17 CT ABD/PELVIS WO(KIDNEY STONE) PROCEDURE: CT urinary tract, rule out kidney stone. TECHNIQUE: Multiple contiguous axial images were obtained through the abdomen and pelvis without the use of intravenous contrast. INDICATION: Urinary tract infection, history of stones. CORRELATION STUDY: 06/01/2017. FINDINGS: Examination is compromised by patient motion artifact on multiple images. The lung bases appear generally clear, apart from minimal atelectasis or less likely scarring. Heart size is borderline. Trace pericardial effusion. Small hiatal hernia is present. The unenhanced liver, spleen, pancreas and adrenal glands appear unremarkable. Gallbladder is present and appears somewhat contracted, there is suggestion of some gallbladder wall thickening and perhaps pericholecystic fluid. This appears changed from prior study. Kidneys have a relatively normal configuration. There is calcification of the renal bebeto, likely largely vasculature. However, there do appear to be a few small nonobstructing renal stones. The ureters overall do appear to be slightly prominent, bilaterally, right greater than left. Definitive calcification along the expected course of the ureter, however, is not suggested. Gastrointestinal tract with moderate severity fecal retention. No definitive evidence for underlying bowel obstruction. Urinary bladder is mildly distended. This may be accounting for slight prominent appearance about the ureters. Osseous structures demonstrate advanced degenerative changes at the L5-S1 level. Diffuse bony demineralization is present. IMPRESSION: 1. Small nonobstructing bilateral renal stones. Both ureters are slightly prominent likely owing to mildly distended ureter. No definitive evidence for ureteral calcification. 2. Mild severity fecal retention. No evidence for bowel obstruction. 3. Gallbladder is contracted with suggestion of gallbladder wall thickening and pericholecystic fluid. Underlying cholecystitis not excluded. Clinical correlation recommended. Dictated on workstation # [id number] Dict: 12/30/172014 Trans: 12/30/172026 [facility] [id number] Interpreted by: LINA GARCÍA DO Electronically signed by: Reviewed: Reviewed by Sc Departure Communication (Admissions) Time/Spoke to Admitting Phy: 21:[address] King and she agrees to take the patient she agrees with ultrasound in THE MORNING. SHE AGREES WITH IV FLUIDS AND A CONSULT WITH CARDIOLOGY. WE DISCUSSED PAIN MEDS. MPI AT MIDNIGHT. Time/Spoke to Consulting Phy: 21:[address] Best and the concern of hypotension and bradycardia and he agrees see the patient in the morning. Impression Primary Impression: Bradycardia Additional Impressions: Acute abdominal pain in right upper quadrant Hypokalemia UTI (urinary tract infection) Qualified Codes: N30.01 - Acute cystitis with hematuria Hypotension Qualified Codes: I95.9 - Hypotension, unspecified Disposition: ADMITTED INPATIENT Condition: Improved Admissions Decision to Admit Reason: Admit from ER (General) Decision to Admit/Date: Dec 30, 2017 Time/Decision to Admit Time: 21:21 Departure-Patient Inst. Referrals: NO,LOCAL PHYSICIAN (PCP/Family) Primary Care Physician Copy Copies To 1: KARO YATES TITUS J Dec 30, 2017 18:33
[2017-12-30 18:34] LABS: ALANINE AMINOTRANSFERASE 39 U/L (0-55); ALBUMIN 3.3 GM/DL (3.2-4.5); ALKALINE PHOSPHATASE 76 U/L (40-136); BILIRUBIN,TOTAL 0.4 MG/DL (0.1-1.0); BUN/CREATININE RATIO 11; CALCIUM 8.8 MG/DL (8.5-10.1); CARBON DIOXIDE 25 MMOL/L (21-32); CHLORIDE 98 MMOL/L (98-107); CREATININE SERUM 0.85 MG/DL (0.60-1.30); GFR ESTIMATED > 60; GLUCOSE 155 MG/DL (70-105); POTASSIUM 3.3 MMOL/L (3.6-5.0); SODIUM 132 MMOL/L (135-145); TOTAL PROTEIN 6.1 GM/DL (6.4-8.2)
--- NOTE | 2017-12-30 18:36 | Diagnostic Imaging Report ---
INDICATION: Hypotension. TECHNIQUE: Single view chest 6:17 p.m. CORRELATION STUDY: 12/20/2017 FINDINGS: The heart size, mediastinal configuration and pulmonary vascularity are within normal limits. Calcification of the aortic arch. Lung reis slightly hyperinflated but overall clear. No infiltrate. IMPRESSION: 1. Generally stable chest demonstrates no acute cardiopulmonary abnormality. Dictated by: Dictated on workstation # [id number]
[2017-12-30 18:59] LABS: BILIRUBIN,URINE NEGATIVE (NEGATIVE); CLARITY,URINE CLEAR; COLOR,URINE AMBER; GLUCOSE, URINE (UA) NEGATIVE (NEGATIVE); KETONES,URINE NEGATIVE (NEGATIVE); LEUKOCYTE ESTERASE ,URINE 1+ (NEGATIVE); NITRITE,URINE NEGATIVE (NEGATIVE); PH,URINE 7 (5-9); PROTEIN,URINE 1+ (NEGATIVE); UROBILINOGEN,URINE NORMAL (NORMAL)
[2017-12-30] MEDS ORDERED: POTASSIUM CL 10MEQ/50ML IVPB 50 ML IV ONE (19:00)
[2017-12-30 19:12] LABS: BACTERIA,URINE TRACE /HPF; WBC,URINE 0-2 /HPF
[2017-12-30 19:18] LABS: AMPHETAMINE SCREEN, URINE NEGATIVE (NEGATIVE); BARBITURATE SCREEN URINE NEGATIVE (NEGATIVE); BENZODIAZEPINES SCREEN URINE POSITIVE (NEGATIVE); CANNABINOID SCREEN, URINE NEGATIVE (NEGATIVE); COCAINE SCREEN URINE NEGATIVE (NEGATIVE); METHADONE STAT NEGATIVE (NEGATIVE); METHAMPHETAMINE SCREEN URINE S NEGATIVE (NEGATIVE); OPIATE SCREEN URINE POSITIVE (NEGATIVE); OXYCODONE STAT NEGATIVE (NEGATIVE); PROPOXYPHENE STAT NEGATIVE (NEGATIVE); TRICYCLIC ANTIDEPRESSANTS SCRE NEGATIVE (NEGATIVE)
[2017-12-30] MEDS ORDERED: LIDOCAINE BOLUS 100 MG/5 ML (IMS) SYR IV ONE (20:00)
[2017-12-30] MEDS ORDERED: NS (IVPB) 100 ML ONE (20:15)
--- NOTE | 2017-12-30 20:28 | Diagnostic Imaging Report ---
PROCEDURE: CT urinary tract, rule out kidney stone. TECHNIQUE: Multiple contiguous axial images were obtained through the abdomen and pelvis without the use of intravenous contrast. INDICATION: Urinary tract infection, history of stones. CORRELATION STUDY: 06/01/2017. FINDINGS: Examination is compromised by patient motion artifact on multiple images. The lung bases appear generally clear, apart from minimal atelectasis or less likely scarring. Heart size is borderline. Trace pericardial effusion. Small hiatal hernia is present. The unenhanced liver, spleen, pancreas and adrenal glands appear unremarkable. Gallbladder is present and appears somewhat contracted, there is suggestion of some gallbladder wall thickening and perhaps pericholecystic fluid. This appears changed from prior study. Kidneys have a relatively normal configuration. There is calcification of the renal bebeto, likely largely vasculature. However, there do appear to be a few small nonobstructing renal stones. The ureters overall do appear to be slightly prominent, bilaterally, right greater than left. Definitive calcification along the expected course of the ureter, however, is not suggested. Gastrointestinal tract with moderate severity fecal retention. No definitive evidence for underlying bowel obstruction. Urinary bladder is mildly distended. This may be accounting for slight prominent appearance about the ureters. Osseous structures demonstrate advanced degenerative changes at the L5-S1 level. Diffuse bony demineralization is present. IMPRESSION: 1. Small nonobstructing bilateral renal stones. Both ureters are slightly prominent likely owing to mildly distended ureter. No definitive evidence for ureteral calcification. 2. Mild severity fecal retention. No evidence for bowel obstruction. 3. Gallbladder is contracted with suggestion of gallbladder wall thickening and pericholecystic fluid. Underlying cholecystitis not excluded. Clinical correlation recommended. Dictated by: Dictated on workstation # [id number]
[2017-12-30 21:40] VITALS: BP 139/70
[2017-12-30 21:50] VITALS: BP 131/84
[2017-12-30] MEDS ORDERED: CATHETER FLUSH 10 ML SYR IV PRN (22:00)
[2017-12-30] MEDS: CATHETER FLUSH 10 ML SYR IV SCH (22:15)
[2017-12-30] MEDS: NS W/KCL 40 MEQ/L 1,000 ML IV SCH (22:15)
[2017-12-30] MEDS: oxyCODONE/APAP 5/325MG (PERCOCET 5) TABLET PO PRN (22:23)
[2017-12-30 22:56] VITALS: BP 139/70
[2017-12-30 23:00] VITALS: BP 152/83
[2017-12-30] MEDS ORDERED: RT-ALBUTEROL/IPRATROPIUM 3 ML (DUONEB) VIAL INH PRN (23:45)
[2017-12-31] VITALS (12 sets, daily range): BP systolic 131–183; BP diastolic 68–86
[2017-12-31] MEDS: NS W/KCL 40 MEQ/L 1,000 ML IV SCH (04:51)
[2017-12-31] MEDS: oxyCODONE/APAP 5/325MG (PERCOCET 5) TABLET PO PRN ×3 (05:27→18:27)
[2017-12-31 06:14] LABS: WHITE BLOOD COUNT 5.2 10^3/uL (4.3-11.0)
[2017-12-31 06:15] LABS: BASOPHILS % (AUTO) 0 % (0-10); EOSINOPHILS # (AUTO) 0.1 10^3/uL (0.0-0.3); EOSINOPHILS % (AUTO) 2 % (0-10); HEMATOCRIT 33 % (35-52); HEMOGLOBIN 10.5 G/DL (11.5-16.0); LYMPHOCYTES # (AUTO) 2.1 X 10^3 (1.0-4.0); LYMPHOCYTES % (AUTO) 41 % (12-44); MEAN CORPUSCULAR HEMOGLOBIN 34 PG (25-34); MEAN CORPUSCULAR HGB CONC 32 G/DL (32-36); MEAN CORPUSCULAR VOLUME 106 FL (80-99); MEAN PLATELET VOLUME 10.1 FL (7.4-10.4); MONOCYTES # (AUTO) 0.7 X 10^3 (0.0-1.0); MONOCYTES % (AUTO) 14 % (0-12); NEUTROPHILS # (AUTO) 2.3 X 10^3 (1.8-7.8); NEUTROPHILS % (AUTO) 44 % (42-75); PLATELET COUNT 178 10^3/uL (130-400); RED BLOOD COUNT 3.11 10^6/uL (4.35-5.85); RED CELL DISTRIBUTION WIDTH 13.2 % (10.0-14.5)
[2017-12-31] MEDS: KETOROLAC 15 MG/ML VIAL IV PRN ×3 (06:21→22:28)
[2017-12-31] MEDS: CATHETER FLUSH 10 ML SYR IV SCH ×3 (06:21→19:59)
[2017-12-31 07:02] LABS: CHLORIDE 111 MMOL/L (98-107); SODIUM 139 MMOL/L (135-145)
[2017-12-31 07:03] LABS: CALCIUM 8.3 MG/DL (8.5-10.1); CARBON DIOXIDE 22 MMOL/L (21-32); CREATININE SERUM 0.63 MG/DL (0.60-1.30); GFR ESTIMATED > 60; GLUCOSE 81 MG/DL (70-105)
[2017-12-31] MEDS ORDERED: MELA3TAB PO ×2 (09:57)
[2017-12-31] MEDS ORDERED: LISI-552 PO ×2 (09:58)
[2017-12-31] MEDS ORDERED: LANS30CA PO ×2 (09:58)
[2017-12-31] MEDS ORDERED: METH500T7 PO ×2 (09:59)
[2017-12-31] MEDS ORDERED: NITR100C PO ×2 (10:00)
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
--- NOTE | 2017-12-31 10:51 | Diagnostic Imaging Report ---
PROCEDURE: US carotid duplex, bilateral. TECHNIQUE: Multiple real-time grayscale images were obtained over the carotid arteries in various projections, bilaterally. Additional duplex Doppler and color Doppler images were also obtained. INDICATION: Carotid bruit. High blood pressure. History of smoking. COMPARISON: None FINDINGS: LEFT CAROTID: There is moderate atherosclerosis in the left ICA which causes 50-69% stenosis at the proximal ICA, both visually and by flow velocity criteria. Mild atherosclerosis is seen in the distal ICA. The left vertebral artery is antegrade. RIGHT CAROTID: The right internal carotid artery demonstrates mild atherosclerosis without significant stenosis. The vertebral artery is antegrade. There is irregular rhythm on the waveforms. Carotid upstrokes are brisk bilaterally. Parameters based on the consensus panel Sosa-Scale and Doppler ultrasound criteria published March 2003, Radiology, Volume 229. DOPPLER (peak systolic velocity M/S Right Left CCA .87 .85 ICA Proximal .95 2.24 ICA Mid 1.2 .65 ICA Distal 1.2 2.1 RATIO 1.4 2.62 ECA 1.15 1.8 VERT .57 1.16 IMPRESSION: 1. Moderate atherosclerosis in the proximal left internal carotid artery resulting in 50-69% stenosis. 2. Mild atherosclerosis in the left internal carotid artery without hemodynamically significant stenosis. 3. Cardiac arrhythmia, please correlate with EKG. Dictated by: Dictated on workstation # [id number]
--- NOTE | 2017-12-31 10:57 | Diagnostic Imaging Report ---
REASON FOR EXAM: Abdominal pain. COMPARISON: Ultrasound from 10/23/2015. TECHNIQUE: Grayscale and Doppler ultrasound performed in the right upper quadrant of the abdomen to evaluate the liver and gallbladder. FINDINGS: The liver is normal in size and shape. The liver echogenicity is within normal limits. There are no focal lesions. No intrahepatic biliary dilatation is present. The common bile duct is upper normal and measures 6 mm. The main portal vein is hepatopedal. There is no evidence of cholelithiasis, gallbladder wall thickening or pericholecystic fluid. Sonographic Bales's sign is negative. The visualized portion of the head of the pancreas are within normal limits. The body and tail of the pancreas are not well visualized due to overlying bowel gas. The right kidney measures approximately 11.1 cm in length and has a normal appearance. No significant ascites is seen. IMPRESSION: 1. No cholelithiasis or acute cholecystitis. No liver or gallbladder abnormality detected. Dictated by: Dictated on workstation # [id number]
[2017-12-31] MEDS: chlordiazePOXIDE 10 MG (LIBRIUM) NON-FORMULARY PO SCH ×2 (13:00→19:59)
--- NOTE | 2017-12-31 13:04 | Progress Note-Pre Operative ---
Pre-Operative Progress Note H&P Reviewed The H&P was reviewed, patient examined and no changes noted. Date Seen by Provider: Dec 31, 2017 Time Seen by Provider: 12:40 Date H&P Reviewed: Dec 31, 2017 Time H&P Reviewed: 13:03 Pre-Operative Diagnosis: Epigastric pain AUDIE ROBISON MD Dec 31, 2017 13:04
--- NOTE | 2017-12-31 13:05 | Progress Note-Standard ---
Standard Progress Note Progress Notes/Assess & Plan Date Seen by Provider: Dec 31, 2017 Time Seen by Provider: 12:40 Progress/Assessment & Plan Seen at the request of the nursing staff. She has been scheduled to undergo an outpatient upper endoscopy tomorrow. Currently, she is admitted due to hypertension, that has been managed appropriately. She reports symptoms suggestive of gastroesophageal reflux and therefore endoscopy would be reasonable. On examination, there is minimal epigastric tenderness. I have reviewed the procedure details including conscious sedation and she seems to be in agreement. The procedure will be completed Final Diagnosis Epigastric pain. GERD Focused Exam Lactate Level 12/30/17 17:58: Lactic Acid Level 1.85 AUDIE ROBISON MD Dec 31, 2017 13:05
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
[2017-12-31] MEDS ORDERED: PATIENT MAY USE OWN MEDS, ALL MC SCH (14:45)
[2017-12-31] MEDS ORDERED: METHOCARBAMOL 500 MG (ROBAXIN) TABLET PO PRN (15:00)
[2017-12-31] MEDS ORDERED: MELATONIN 3 MG TABLET PO PRN (15:00)
[2017-12-31] MEDS ORDERED: cefTRIAXone 1 GM/NS 50 ML IVPB IV SCH ×2 (18:00)
[2018-01-01 00:14] VITALS: BP 162/74
[2018-01-01 04:19] VITALS: BP 168/75
[2018-01-01] MEDS: CATHETER FLUSH 10 ML SYR IV SCH ×2 (06:09→08:54)
[2018-01-01 06:58] LABS: HEMOGLOBIN 11.2 G/DL (11.5-16.0); MEAN PLATELET VOLUME 10.1 FL (7.4-10.4); RED BLOOD COUNT 3.24 10^6/uL (4.35-5.85); WHITE BLOOD COUNT 5.2 10^3/uL (4.3-11.0)
[2018-01-01 07:27] LABS: BUN/CREATININE RATIO 10; CALCIUM 9.2 MG/DL (8.5-10.1); CARBON DIOXIDE 24 MMOL/L (21-32); CHLORIDE 104 MMOL/L (98-107); CREATININE SERUM 0.72 MG/DL (0.60-1.30); GFR ESTIMATED > 60; GLUCOSE 89 MG/DL (70-105); POTASSIUM 3.7 MMOL/L (3.6-5.0); SODIUM 138 MMOL/L (135-145)
[2018-01-01] MEDS ORDERED: NS IV 500 ML 500 ML ONE (07:29)
[2018-01-01] MEDS ORDERED: fentaNYL INJECTION 100 MCG/2 ML AMP ONE (07:39)
[2018-01-01] MEDS ORDERED: HURRICAINE EXT TUBE (BENZOCAINE) ONE (07:39)
[2018-01-01] MEDS ORDERED: MIDAZOLAM 2 MG/2 ML (VERSED) VIAL ONE ×4 (07:39→07:46)
[2018-01-01] MEDS: fentaNYL INJECTION 100 MCG/2 ML AMP IVP PRN ×2 (07:42→07:50)
[2018-01-01] MEDS: MIDAZOLAM 2 MG/2 ML (VERSED) VIAL IVP PRN ×3 (07:43→07:52)
[2018-01-01] MEDS ORDERED: SUCR1TAB36 PO ×4 (08:05→10:53)
[2018-01-01] MEDS ORDERED: NS IV 500 ML 500 ML IV PRN ×2 (08:09→08:18)
[2018-01-01] MEDS ORDERED: HURRICAINE EXT TUBE (BENZOCAINE) XX PRN (08:15)
[2018-01-01] MEDS ORDERED: fentaNYL INJECTION 100 MCG/2 ML AMP IVP PRN (08:15)
[2018-01-01] MEDS ORDERED: MIDAZOLAM 2 MG/2 ML (VERSED) VIAL IVP PRN (08:15)
[2018-01-01 08:35] VITALS: BP 185/81
[2018-01-01] MEDS: oxyCODONE/APAP 5/325MG (PERCOCET 5) TABLET PO PRN (08:46)
[2018-01-01] MEDS: KETOROLAC 15 MG/ML VIAL IV PRN (08:54)
[2018-01-01] MEDS: chlordiazePOXIDE 10 MG (LIBRIUM) NON-FORMULARY PO SCH (08:54)
[2018-01-01] MEDS ORDERED: meTOproloL SUCCINATE 50 MG (TOPROL XL) TAB PO SCH (09:00)
[2018-01-01] MEDS ORDERED: NITROFURANTOIN 100 MG (MACROBID) CAPSULE PO SCH (09:00)
[2018-01-01] MEDS ORDERED: PANTOPRAZOLE 40 MG (PROTONIX) TAB PO SCH (09:00)
[2018-01-01] MEDS ORDERED: PANT40TA2 PO ×2 (09:44)
--- NOTE | 2018-01-01 09:45 | Discharge Summary-Hospitalist ---
Diagnosis/Chief Complaint Date of Admission Dec 30, 2017 at 21:24 Date of Discharge Discharge Date: Jan 01, 2018 Discharge Diagnosis (1) Bradycardia Status: Resolved Assessment & Plan: Unclear etiology, suspect related to beta calin. Cardiology consulted, appreciate recommendations. (2) Hypotension Status: Resolved Assessment & Plan: Multifactorial, initially thought to be infection related, however unclear if any true infection exists. BP markedly improved with IVF. Possibly combination of poor intake, opiate and benzo medications and anti- hypertensives. This am is hypertensive. (3) Hypokalemia Status: Resolved (4) Chronic abdominal pain Status: Chronic Assessment & Plan: Opiate pain meds being discontinued outpatient, minimize use. (5) PTSD (post-traumatic stress disorder) Status: Chronic Assessment & Plan: On high dose benzodiazepine chronically, taper being done outpatient. (6) IBS (irritable bowel syndrome) Status: Chronic (7) Hypertension Status: Chronic (8) Urinary tract infection Status: Acute Assessment & Plan: Possible, UA with only trace bacteria. Hematuria may be secondary to renal stones, possibly passed stone. (9) Constipation Status: Chronic Assessment & Plan: CT showed significant stool, may be contributing to pain, consider laxatives (10) DVT prophylaxis Status: Acute Assessment & Plan: Enoxaparin (11) Stomach ulcer Status: Acute (12) GERD with esophagitis Status: Acute Discharge Summary Discharge Physical Exam Allergies: Coded Allergies: Sulfa (Sulfonamide Antibiotics) (Verified Allergy, Unknown, 12/31/17) adhesive (Verified Allergy, Unknown, 12/31/17) fentanyl adhesive meperidine (Verified Allergy, Unknown, HALLUCINATIONS, 12/31/17) pregabalin (Verified Allergy, Unknown, 12/31/17) Vitals & I&Os Vital Signs Date Time Temp Pulse Resp B/P (MAP) Pulse Ox O2 Delivery O2 Flow Rate FiO2 01/01/18 12:00 97.0 66 18 158/88 (111) 97 Room Air 12/30/17 22:56 21 General Appearance: Alert, Oriented X3, Cooperative Respiratory: Clear to Auscultation, Normal Air Movement Cardiovascular: Regular Rate Psych/Mental Status: Mental Status NL, Mood NL Hospital Course Hospital course: patient was admitted for chest and abdominal pain and bradycardia and cardiology was consulted. Pt was monitored closely and hypotension and bradycardia resolved. EGD was performed per Dr Schultz which revealed ulceration and esophagitis. 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 Pt will have close f/u and all meds were deemed correct at [place]. Labs (last 24 hrs) Laboratory Tests 01/01/18 05:26: White Blood Count 5.2, Red Blood Count 3.24L, Hemoglobin 11.2L, Hematocrit 35, Mean Corpuscular Volume 107H, Mean Corpuscular Hemoglobin 35H, Mean Corpuscular Hemoglobin Concent 32, Red Cell Distribution Width 13.0, Platelet Count 206, Mean Platelet Volume 10.1, Sodium Level 138, Potassium Level 3.7, Chloride Level 104, Carbon Dioxide Level 24, Anion Gap 10, Blood Urea Nitrogen 7, Creatinine 0.72, Estimat Glomerular Filtration Rate > 60, BUN/Creatinine Ratio 10, Glucose Level 89, Calcium Level 9.2 Microbiology 12/30/17 Blood Culture - Preliminary, Resulted No growth 12/30/17 Urine Culture - Final, Complete See Comments Patient resulted labs reviewed. Pending Labs Discussion & Recommendations Discharge Planning: <30 minutes discharge planning Discharge Home Medications: Active Scripts Active Prilosec Otc (Omeprazole Magnesium) 20 Mg Tablet.dr 40 Mg PO BID 40 MG TWICE A DAY Carafate (Sucralfate) 1 Gm Tablet 1 Gm PO TID Carafate (Sucralfate) 1 Gm Tablet 1 Gm PO TID 10 Days Metoprolol Succinate 50 Mg Tab.er.24h 50 Mg PO DAILY 30 Days Reported Nitrofurantoin (Nitrofurantoin Macrocrystal) 100 Mg Capsule 100 Mg PO DAILY Methocarbamol 500 Mg Tablet 500 Mg PO QID PRN Lansoprazole 30 Mg Capsule.dr 30 Mg PO DAILY Lisinopril 20 Mg Tablet 20 Mg PO DAILY Melatonin 3 Mg Tablet 3 Mg PO HS PRN Saline Nasal [place] (Sodium Chloride) 30 Ml [place] 1-2 Sprays NS DAILY PRN Acetaminophen-Cod #3 Tablet (Acetaminophen with Codeine) 1 Each Tablet 1 Tab PO Q6H PRN Amlodipine Besylate 5 Mg Tablet 5 Mg PO DAILY Ventolin Hfa (Albuterol Sulfate) 1 Puff Puff 2 Puff IH Q4H PRN 1 PUFF = 90 MCG Dicyclomine HCl 20 Mg Tablet 20 Mg PO TID PRN Chlordiazepoxide HCl 10 Mg Capsule 20 Mg PO TID TAKES 2 (10MG) CAPSULES Instructions to patient/family Please see electronic discharge instructions given to patient. Clinical Quality Measures DVT/VTE Risk/Contraindication: Risk Factor Score Per Nursin RFS Level Per Nursing on Admit: 4+=Very High Problem Qualifiers (1) Hypotension: Hypotension type: unspecified hypotension type Qualified Codes: I95.9 - Hypotension, unspecified (2) IBS (irritable bowel syndrome): Irritable bowel syndrome type: with both diarrhea and constipation Qualified Codes: K58.2 - Mixed irritable bowel syndrome (3) Hypertension: Hypertension type: essential hypertension Qualified Codes: I10 - Essential ( primary) hypertension (4) Urinary tract infection: Hematuria presence: with hematuria (5) Stomach ulcer: Gastric ulcer chronicity: acute Gastric ulcer complication status: without hemorrhage or perforation Qualified Codes: K25.3 - Acute gastric ulcer without hemorrhage or perforation SIVAKUMAR ANDRADE DO Jan 01, 2018 09:45
--- NOTE | 2018-01-01 09:59 | Cardiology Progress Note ---
Subjective Date Seen by Provider: Jan 01, 2018 Time Seen by Provider: 09:57 Subjective/Events-last exam Patient had a scope done earlier, reporting PUD, feeling better and asking to go home Review of Systems General: No Chills, No Night Sweats, No Fatigue, No Malaise, No Appetite, No Other HEENT: No Head Aches, No Visual Changes, No Eye Pain, No Ear Pain, No Dysphasia , No Sinus Congestion, No Post Nasal Drip, No Sore Throat, No Other Pulmonary: Dyspnea; No Cough, No Pleuritic Chest Pain, No Other Cardiovascular: No: Chest Pain, Palpitations, Orthopnea, Paroxysmal Noc. Dyspnea, Edema, Lt Headedness, Other Focused Exam Lactate Level 12/30/17 17:58: Lactic Acid Level 1.85 Objective-Cardiology Exam Last Set of Vital Signs Vital Signs 12/30/17 01/01/18 22:56 08:35 Temp 96.0 Pulse 65 Resp 18 B/P (MAP) 185/81 (115) Pulse Ox 98 O2 Delivery Room Air FiO2 21 Capillary Refill : Less Than 3 Seconds I&O Intake and Output 01/01/18 00:00 Intake Total 3088 ml Output Total 550 ml Balance 2538 ml Intake Oral 1098 ml IV Total 1990 ml Output Urine Total 550 ml # Voids 8 # Bowel Movements 1 General: Alert, Oriented X3, Cooperative HEENT: Atraumatic, PERRLA Neck: Supple, No JVD, No Thyromegaly Lungs: Clear to Auscultation, Normal Air Movement Heart: Regular Rate, Normal S1, Normal S2, No Murmurs Abdomen: Normal Bowel Sounds, Soft, No Tenderness, No Hepatosplenomegaly, No Masses Extremities: No Clubbing, No Cyanosis, No Edema, Normal Pulses, No Tenderness/ Swelling Skin: No Rashes, No Breakdown, No Significant Lesion Neuro: Normal Gait, Normal Speech, Strength at 5/5 X4 Ext, Normal Tone, Sensation Intact Psych/Mental Status: Mental Status NL, Mood NL Results Lab Laboratory Tests 01/01/18 05:26 A/P-Cardiology Admission Diagnosis Hypotension Bradycardia Carotid bruit COPD Assessment/Plan Transient hypotension responded to IV fluid, could be a combination of dehydration and beta blockers. Has improved since received IV fluid, Okay for discharge and follow up as an outpatient Bradycardia noted initially on arrival to the emergency room, heart rate has improved at this time. Was on beta blockers which could be the cause of her bradycardia. Patient has been asymptomatic and tolerating the medication well. Left sided carotid bruit noted incidentally. I am planning to evaluate carotid ultrasound. Dysuria and change in the color of the urine. Workup so far has been negative except for small kidney stones. COPD, dyspnea on exertion, heavy smoking. Educated on smoking cessation. History of pain, for which she was taking pain medication. Could be the cause of her hypotension PUD status post endoscopy, managed by Dr Schultz Clinical Quality Measures DVT/VTE Risk/Contraindication: Risk Factor Score Per Nursin RFS Level Per Nursing on Admit: 4+=Very High JOYCE TURNER MD Jan 01, 2018 09:59
[2018-01-01] MEDS ORDERED: OMEP20TA33 PO ×2 (11:09)
[2018-01-01 12:00] VITALS: BP 158/88
--- OUTSIDE RECORDS SUMMARY | 2018-01-08 15:17 | XMS REPORT ---
Author Author VALERIE ZAVALA [facility] Address [address] [place] [address] Care Team Providers Care Enforcement Officer Name Role Phone VALERIE ZAVALA Unavailable PROBLEMS Type Condition ICD9-CM Code IAW53-UK Code Onset Dates Condition Status SNOMED Code Problem Generalized anxiety disorder F41.1 Active 37433434 Problem Hypokalemia E87.6 Active 165966163 Problem Right low back pain, with sciatica presence unspecified M54.5 Active 432539270 Problem Post-traumatic stress disorder, chronic F43.12 Active 33630245 Problem Pain in right knee M25.561 Active 35636938 Problem Gastroesophageal reflux disease without esophagitis K21.9 Active 290440082 Problem UTI symptoms R39.9 Active 96334477 Problem Essential hypertension I10 Active 38171529 Problem Anxiety F41.9 Active 15373020 Problem Neuropathy G62.9 Active 721790135 Problem Other chronic pain G89.29 Active 29258414 Problem Generalized abdominal pain R10.84 Active 032251046 Problem Chronic pain G89.29 Active 54828224 Problem Back pain M54.9 Active 717186395 Problem Right foot pain M79.671 Active 42362107 Problem Panic attacks F41.0 Active 007056891 Problem Other emphysema J43.8 Active 64075711 Problem Kidney stones N20.0 Active 67001933 Problem Renal calculus, right N20.0 Active 06088497 Problem Weight decrease R63.4 Active 821056183 Problem Tobacco abuse Z72.0 Active 98624040 Problem Bone pain M89.8X9 Active 47763160 Problem Depression, unspecified depression type F32.9 Active 04922778 Problem Insomnia, unspecified type G47.00 Active 317878286 Problem Pulmonary emphysema, unspecified emphysema type J43.9 Active 17423035 Problem Right upper quadrant abdominal pain R10.11 Active 742602613 Problem Weight loss R63.4 Active 456346008 ALLERGIES No Information ENCOUNTERS Encounter Location Date Diagnosis [facility] [address], [place] [address] Dec, [facility] [id number] [place] [address] 91663- 9002 Dec, [facility] [address] [address] 1655 Dec, Medicare welcome exam Z00.00 [facility] [id number] [place] [address] 52164- 4030 17 Nov, 2017 [facility] [id number] [place] [address] 00436- 3528 Nov, Pelvic pain R10.2 ; Acute pyelonephritis N10 and Essential hypertension I10 [facility] [address], [place] [address] 9857 Oct, Medicare welcome exam Z00.00 [facility] [id number] [place] [address] 82060- 8669 Oct, Gross hematuria R31.0 ; Urinary tract infection without hematuria, site unspecified N39.0 and Weakness R53.1 [facility] [address], [place] [address] 9143 Oct, [facility] [address], [place] [address] 7086 Oct, [facility] [id number] [place] [address] 82985- 3983 Oct, Medicare welcome exam Z00.00 [facility] [id number] [place] [address] 93093- 8751 September, Back pain M54.9 and Right anterior knee pain M25.561 [facility] [address], [place] [address] 7048 September, [facility] [id number] [place] [address] 23462- 5910 September, [facility] [address], [place] [address] 7515 September, Essential hypertension I10 [facility] [id number] [place] [address] 21474- 1817 September, [facility] [id number] [place] [address] 02408- 5314 September, RLQ abdominal pain R10.31 ; Low back pain M54.5 and Other chronic pain G89.29 [facility] [id number] [place] [address] 34970- 6809 Aug, Medicare welcome exam Z00.00 [facility] [id number] [place] [address] 70344- 7086 Aug, [facility] [id number] [place] [address] 25640- 1232 Aug, Acute pyelonephritis N10 and Medicare welcome exam Z00.00 [facility] [id number] [place] [address] 80051 -7770 Aug, Dysuria R30.0 and Acute pyelonephritis N10 [facility] [id number] [place] [address] 19913- 8459 Aug, [facility] [id number] [place] [address] 03153- 9729 Aug, [facility] [id number] [place] [address] 31303- 4914 Aug, [facility] [id number] [place] [address] 93447- 6138 Aug, [facility] [id number] [place] [address] 01876- 0285 Jul, [facility] [id number] [place] [address] 61142- 9063 Jul, Renal calculus, right N20.0 and Medicare welcome exam Z00.00 [facility] [id number] [place] [address] 87674 -9252 Jul, Dysuria R30.0 and Renal calculus, right N20.0 [facility] [id number] [place] [address] 35587- 4145 Jul, Medicare welcome exam Z00.00 [facility] [address] 47214- 7070 Jun, Gastroesophageal reflux disease without esophagitis K21.9 and Generalized abdominal pain R10.84 [facility] [address] 482802- 1556 Jun, Medicare welcome exam Z00.00 [facility] [address] 57725- 9046 Jun, [facility] [address] 25643- 4509 Jun, Medicare welcome exam Z00.00 and Encounter for screening mammogram for malignant neoplasm of breast Z12.31 [facility] [address] 14194- 9014 Jun, Chronic pain G89.29 [facility] [id number] [place] [address] 76707- 5587 May, [facility] [address] 53538- 5335 May, Pelvic pain R10.2 [facility] [id number] [place] [address] 43389- 6076 May, Pelvic pain R10.2 [facility] [id number] [place] [address] 70719 -2223 May, Renal calculus, right N20.0 [facility] [address] 05885- 6149 May, Hematuria, unspecified type R31.9 and Nephrolithiasis N20.0 [facility] [id number] [place] [address] 22376 -1048 May, Dysuria R30.0 and Nephrolithiasis N20.0 [facility] [id number] [place] [address] 56551- 3310 May, [facility] [id number] [place] [address] 33057 -8790 May, Abdominal pain R10.9 and Kidney stone N20.0 [facility] [id number] [place] [address] 53798- 9443 May, [facility] [id number] [place] [address] 81441- 5433 May, Chronic pain G89.29 and Panic attacks F41.0 [facility] [id number] [place] [address] 69939- 9486 May, Urinary tract infection without hematuria, site unspecified N39.0 [facility] [id number] [place] [address] 97509- 8778 Apr, Right lower quadrant abdominal pain R10.31 and Abnormal serum lipase level R74.8 [facility] [id number] [place] [address] 62595- 5707 Apr, Recurrent urinary tract infection N39.0 [facility] [id number] [place] [address] 32389- 0895 Apr, UTI symptoms R39.9 ; Recurrent urinary tract infection N39.0 and Pelvic pain R10.2 [facility] [id number] [place] [address] 16083- 1208 Apr, Chronic pain G89.29 and Panic attacks F41.0 [facility] [id number] [place] [address] 93274- 6322 Apr, Dysuria R30.0 [facility] [address], [place] [address] Apr, [facility] [id number] [place] [address] 90729- 9461 Apr, Dysuria R30.0 and Urinary tract infection without hematuria , site unspecified N39.0 [facility] [id number] [place] [address] 95286- 5812 Mar, UTI symptoms R39.9 [facility] [id number] [place] [address] 04034- 3494 Mar, [facility] [id number] [place] [address] 55993- 9078 Mar, Panic attacks F41.0 and Chronic pain G89.29 [facility] [id number] [place] [address] 98767- 1218 Mar, [facility] [id number] [place] [address] 69536- 7283 Mar, Dysuria R30.0 [facility] [id number] [place] [address] 73105- 1778 Mar, Dysuria R30.0 [facility] [id number] [place] [address] 64112- 2297 Feb, Chronic pain G89.29 ; Shortness of breath R06.02 ; Weight loss R63.4 ; Encounter for immunization Z23 ; Bone pain M89.8X9 ; Right anterior knee pain M25.561 and Cough R05 [facility] [id number] [place] [address] 66970- 6148 Feb, Shortness of breath R06.02 [facility] [id number] [place] [address] 76829- 5588 Feb, [facility] [id number] [place] [address] 30776- 5317 Feb, Panic attacks F41.0 and Chronic pain G89.29 [facility] [id number] [place] [address] 41412- 3459 Feb, [facility] [address] 56903- 1423 Feb, Panic attacks F41.0 ; Shortness of breath R06.02 and Encounter for immunization Z23 [facility] [address] 50891- 0935 Jan, [facility] [address] 58547- 5247 Jan, Anxiety F41.9 and Chronic pain G89.29 [facility] [address] 21420- 2430 Dec, Anxiety F41.9 and Chronic pain G89.29 [facility] [address] 07870- 1152 Nov, Chronic pain G89.29 [facility] [address] 52243- 9164 Nov, Anxiety F41.9 [facility] [address] 57509- 4967 Nov, Chronic pain G89.29 ; Essential hypertension I10 and Other emphysema J43.[address] 01069- 8072 Oct, Anxiety F41.9 [facility] [address] 05094- 3912 Oct, [facility] [address] 73885- 3846 Oct, Chronic pain G89.29 [facility] [id number] [place] [address] 50703- 5559 September, Recurrent UTI N39.0 ; Neuropathy G62.9 and Anxiety F41.9 [facility] [address] [place] [address]- 7473 September, [facility] [id number] [place] [address] 45192- 2549 September, Chronic pain G89.29 [facility] [address], [place] [address]- 3834 September, [facility] [id number] [place] [address] 84464- 5484 Aug, Post-traumatic stress disorder, chronic F43.12 ; Chronic urinary tract infection N39.0 ; Gastroesophageal reflux disease without esophagitis K21.9 ; Chronic pain G89.29 ; Essential hypertension I10 and Tobacco abuse Z72.0 [facility] [address], [place] [address] -6947 Aug, [facility] [id number] [place] [address] 04321- 2424 Aug, Chronic pain G89.29 [facility] [id number] [place] [address] 34834- 6863 Aug, Insomnia, unspecified type G47.00 [facility] [id number] [place] [address] 84294- 2975 Aug, [facility] [id number] [place] [address] 42600- 6914 Jul, Chronic pain G89.29 [facility] [id number] [place] [address] 34422- 9086 Jul, [facility] [address], [place] [address]- 5514 Jul, [facility] [id number] [place] [address] 04630- 2724 Jul, [facility] [address], [place] [address]- 9233 15 Jul, 2016 Recurrent UTI (urinary tract infection) N39.0 [facility] [id number] [place] [address] 32671- 5223 Jul, [facility] [id number] [place] [address] 13589- 3856 Jun, Chronic pain G89.29 [facility] [id number] [place] [address] 92186- 3852 Jun, [facility] [address] 45084- 9139 Jun, [facility] [id number] [place] [address] 76065- 0599 May, Chronic pain G89.29 [facility] [id number] [place] [address] 22108- 7158 May, Weight loss R63.4 and Shortness of breath R06.02 [facility] [id number] [place] [address] 16681- 8838 May, Chronic pain G89.29 ; Weight loss R63.4 and Tobacco abuse Z72.0 [facility] [id number] [place] [address] 17603- 3606 May, [facility] [id number] [place] [address] 79485- 1749 May, Hypoxia R09.02 [facility] [id number] [place] [address] 86428- 2491 May, [facility] [id number] [place] [address] 41091- 3838 May, Pulmonary emphysema, unspecified emphysema type J43.9 [facility] [id number] [place] [address] 02165 -9628 May, [facility] [id number] [place] [address] 77396- 6198 May, [facility] [id number] [place] [address] 45380- 2259 May, [facility] [id number] [place] [address] 72478- 8140 May, Chronic pain G89.29 ; Encounter for immunization Z23 ; Right anterior knee pain M25.561 and Cough R05 [facility] [id number] [place] [address] 28329- 8519 Apr, Chronic pain G89.29 [facility] [address] 58446- 5741 Apr, [facility] [address] 59133- 6281 Apr, Generalized anxiety disorder F41.1 and Depression, unspecified depression type F32.9 [facility] [id number] [place] [address] 61895- 2775 Apr, Chronic pain G89.29 ; Hypokalemia E87.6 and Insomnia, unspecified type G47.00 [facility] [id number] [place] [address] 00755- 4077 Apr, [facility] [address] 68183- 5585 Apr, Chronic pain G89.29 [facility] [id number] [place] [address] 48680- 0617 Apr, [facility] [id number] [place] [address] 08039- 7202 Mar, [facility] [id number] [place] [address] 79209- 0807 Mar, Insomnia, unspecified type G47.00 [facility] [address] 14983- 9897 Mar, Chronic pain G89.29 [facility] [id number] [place] [address] 11459- 4468 Mar, [facility] [address] [place] [address]- 8075 19 Feb, 2016 [facility] [address], [place] [address]- 8397 Feb, [facility] [address], [place] [address]- 7092 Feb, [facility] [id number] [place] [address] 12358- 0305 Feb, [facility] [id number] [place] [address] 24165- 3731 Feb, [facility] [id number] [place] [address] 01581- 2953 29 Jan, 2016 [facility] [id number] [place] [address] 09190- 1657 26 Jan, 2016 [facility] [id number] [place] [address] 21532- 2473 20 Jan, 2016 [facility] [id number] [place] [address] 60422- 9826 13 Jan, 2016 [facility] [id number] [place] [address] 85417- 4202 12 Jan, 2016 [facility] [address], [place] [address]- 1298 07 Jan, 2016 Chronic pain G89.29 [facility] [id number] [place] [address] 10157- 9249 Jan, Chronic pain G89.29 and Fibromyalgia M79.7 [facility] [id number] [place] [address] 60221- 8571 Dec, Depression, unspecified depression type F32.9 and Generalized anxiety disorder 300.02 [facility] [address], [place] [address]- 7475 Dec, Dysthymia F34.1 ; Insomnia, unspecified type G47.00 and Chronic pain G89.29 [facility] [id number] [place] [address] 99476- 6537 Dec, Chronic pain G89.29 [facility] [id number] [place] [address], [place] [address]- 0545 Dec, Insomnia, unspecified type G47.00 [facility] [id number] [place] [address], [place] [address]- 0525 Dec, Fibromyalgia M79.7 and Chronic pain G89.29 [facility] [id number] [place] [address] 63514 2547 Dec, [facility] [id number] [place] [address] 93946- 1361 Dec, [facility] [id number] [place] [address] 16499- 8050 Dec, [facility] [id number] [place] [address] 54150- 0907 Dec, [facility] [id number] [place] [address] 46676- 2543 Dec, Chronic pain G89.29 [facility] [id number] [place] [address] 39906- 7303 Dec, [facility] [id number] [place] [address] 63587- 9814 Dec, [facility] [id number] [place] [address] 43918- 4379 Dec, [facility] [id number] [place] [address] 69564- 2543 Dec, Chronic pain G89.29 and Dysthymia F34.1 [facility] [id number] [place] [address] 39830- 6965 Nov, [facility] [id number] [place] [address] 36166- 1904 Nov, Hypokalemia E87.6 and Chronic pain G89.29 [facility] [id number] [place] [address] 73386- 6948 Nov, Back pain M54.9 and Pain in right knee M25.561 [facility] [id number] [place] [address] 05074- 8186 Nov, [facility] [id number] [place] [address] 86738- 3246 Nov, Chronic pain G89.29 [facility] [id number] [place] [address] 10274 2545 Nov, Chronic pain G89.29 ; Weight loss R63.4 ; Bone pain M89.8X9 and Insomnia, unspecified type G47.00 [facility] [id number] [place] [address] 21791- 0942 Nov, Chronic pain G89.29 [facility] [id number] [place] [address] 76996- 4817 Nov, Chronic pain G89.29 [facility] [id number] [place] [address] 79318 2544 30 Oct, 2015 Chronic pain G89.29 [facility] [id number] [place] [address] 41484 2549 Oct, UTI symptoms R39.9 [facility] [id number] [place] [address] 48001 2547 Oct, Chronic pain G89.29 [facility] [id number] [place] [address] 39254 254 20 Oct, 2015 Chronic pain G89.29 [facility] [id number] [place] [address] 89472 2546 13 Oct, 2015 Chronic pain G89.29 [facility] [id number] [place] [address] 95718- 7183 06 Oct, 2015 Right upper quadrant abdominal pain R10.11 [facility] [id number] [address]- 0162 Oct, Chronic pain G89.29 [facility] [address], [place] [address]- 4396 Oct, [facility] [address], [place] [address]- 4661 September, Chronic pain G89.29 [facility] [address], [place] [address]- 4138 September, Dysuria R30.0 and Urinary tract infection without hematuria , site unspecified N39.0 [facility] [id number] [place] [address] 85410- 3974 September, [facility] [address], [place] [address]- 8137 September, Dysuria R30.0 [facility] [id number] [place] [address] 86309- 8032 September, Chronic pain G89.29 [facility] [address], [place] [address]- 8775 September, Chronic pain G89.29 and Essential hypertension I10 [facility] [address], [place] [address]- 1336 September, [facility] [address], [place] [address]- 9398 September, [facility] [address], [place] [address]- 3482 September, [facility] [address], [place] [address]- 6454 Aug, UTI symptoms R39.9 [facility] [address], [place] [address]- 8780 Aug, Dysuria R30.0 [facility] [address], [place] [address]- 5395 Aug, [facility] [address], [place] [address]- 6742 Aug, [facility] [id number] [place] [address] 99544- 6505 Aug, [facility] [id number] [place] [address] 18263- 3119 Aug, Chronic pain G89.29 [facility] [id number] [place] [address] 85282- 2787 Aug, Dysthymia F34.1 [facility] [id number] [place] [address] 37993- 4192 Aug, Conjunctivitis, unspecified conjunctivitis type, unspecified laterality H10.9 [facility] [id number] [place] [address] 45554- 7307 Jul, Chronic pain G89.29 ; Back pain M54.9 ; Tobacco abuse Z72.0 and Weight decrease R63.4 [facility] [id number] [place] [address] 73571- 7188 30 Jul, 2015 [facility] [id number] [place] [address] 73275- 9969 30 Jul, 2015 [facility] [id number] [place] [address] 62026- 2131 24 Jul, 2015 Chronic pain G89.29 [facility] [id number] [place] [address] 97740- 7700 Jul, [facility] [id number] [address] Jul, [facility] [id number] [place] [address] 00520- 5064 18 Jul, 2015 [facility] [id number] [address] 3292 17 Jul, 2015 [facility] [id number] [place] [address] 42433- 2517 17 Jul, 2015 Chronic pain G89.29 [facility] [id number] [address] 8638 16 Jul, 2015 Chronic pain G89.29 [facility] [id number] [place] [address] 4052 15 Jul, 2015 [facility] [id number] [place] [address] 85533- 0749 Jul, [facility] [id number] [place] [address] 118[address] Jul, [facility] [id number] [place] [address] 88983- 7814 Jul, [facility] [id number] [place] [address] 64352- 8971 Jun, [facility] [id number] [address] Jun, Depression, unspecified depression type F32.9 [facility] [id number], [place] [address] Jun, Pain in right knee M25.561 [facility] [address], [place] [address] Jun, Chronic pain G89.29 ; Back pain M54.9 ; Bone pain M89.8X9 and Weight loss R63.4 [facility] [address], [place] [address] Jun, [facility] [address], [place] [address] 7[address] May, [facility] [address], [place] [address] 24[address] May, UTI symptoms R39.9 ; Pain in right knee M25.561 ; Right low back pain, with sciatica presence unspecified M54.5 ; Right foot pain M79.671 ; Hypokalemia E87.6 and Screening, lipid Z13.220 [facility] [id number] [place] [address] 73655- 4156 May, [facility] [id number] [place] [address] 55195 2546 May, [facility] [id number] [place] [address] 70690 2548 Mar, [facility] [id number] [place] [address] 57047 2546 Mar, [facility] [id number] [place] [address] 32477- 4665 Mar, Hypokalemia E87.6 [facility] [id number] [place] [address] 71338- 7642 Mar, Encounter for immunization Z23 ; Pain in right leg M79.604 ; Pain in right knee M25.561 and Hypokalemia E87.6 [facility] [id number] [place] [address] 74223- 5562 Jan, [facility] [id number] [place] [address] 79138 2540 Jan, [facility] [id number] [place] [address] 46863 2541 Jan, Abdominal pain, generalized 789.07 [facility] [id number] [place] [address] 29707 2546 Jan, Abdominal pain, generalized 789.07 [facility] [id number] [place] [address] 06922 2546 Dec, [facility] [id number] [place] [address] 17096 2543 Dec, [facility] [id number] [place] [address] 89979 254 Dec, [facility] [address], [place] [address] 6[address] Nov, Hallux valgus 735.0 and Hammertoe 735.4 [facility] [address], [place] [address]- 8236 Nov, [facility] [address], [place] [address] 5[address] Nov, Hallux valgus 735.0 and Hammer toe 735.4 [facility] [address], [place] [address] 9680 Oct, [facility] [id number] [place] [address] 79381- 1064 Oct, [facility] [id number] [place] [address] 61088- 1741 Oct, Pre-op evaluation V72.84 [facility] [id number] [place] [address] 60264- 9676 Oct, [facility] [id number] [place] [address] 03439- 3269 Oct, [facility] [id number] [place] [address] 92051- 0617 September, [facility] [address], [place] [address] 0[address] September, [facility] [address], [place] [address]- 5235 September, Hallux valgus (acquired) 735.0 and Other hammer toe ( acquired) 735.4 [facility] [address] 8[address] Aug, [facility] [address], [place] [address]- 7577 Aug, [facility] [address], [place] [address]- 2174 Jul, [facility] [place] [facility] [address] [id number] [place] [address]- 7286 Jul, [facility] [place] [facility] [address] [id number] [place] [address]- 1192 Jul, 2014 [facility] [place] [facility] [address] [id number] [place] [address]- 0709 Jul, 2014 [facility] [place] [facility] [address] [id number] [place] [address]- 3425 Jul, 2014 [facility] [place] [facility] [address] [id number] [place] [address]- 4629 Jul, [facility] [place] [facility] [address] [id number] [place] [address]- 5437 Jul, [facility] [place] [facility] [address] [facility] [id number] [place] [address]- 2434 Jul, [facility] [place] [facility] [address] [id number] [place] [address]- 1857 Jun, 2014 [facility] [place] [facility] [address] [id number] [place] [address]- 0291 Jun, 2014 [facility] [place] [facility] [address] [facility] [id number] [place] [address]- 8605 Jun, 2014 [facility] [place] [facility] [address] [id number] [place] [address]- 5854 Jun, 2014 [facility] [place] [facility] [address] [id number] [place] [address]- 1273 Jun, 2014 [facility] [place] [facility] [address] [id number] [place] [address]- 3138 Jun, 2014 [facility] [place] [facility] [address] [id number] [place] [address]- 4878 Jun, 2014 [facility] [place] [facility] [address] [facility] [id number] [place] [address]- 4427 Jun, 2014 [facility] [place] [facility] [address] [id number] [place] [address]- 0254 Jun, [facility] [place] [facility] [address] [id number] [place] [address]- 9907 Jun, [facility] [place] [facility] [address] [id number] [place] [address]- 9896 May, [facility] [place] [facility] [address] [id number] [place] [address]- 9880 May, [facility] [place] [facility] [address] [id number] [place] [address]- 3070 May, [facility] [place] [facility] [address] [id number] [place] [address]- 0874 May, [facility] [place] [facility] [address] [id number] [place] [address]- 6616 May, [facility] [place] [facility] [address] [id number] [place] [address]- 5403 May, [facility] [place] [facility] [address] [id number] [place] [address]- 0029 May, [facility] [place] [facility] [address] [id number] [place] [address]- 9533 May, [facility] [place] [facility] [address] [id number] [place] [address]- 4701 May, [facility] [place] [facility] [address] [id number] [place] [address]- 9581 May, [facility] [place] [facility] [address] [id number] [place] [address]- 7919 May, [facility] [place] [facility] [address] [id number] [place] [address]- 1424 May, [facility] [place] [facility] [address] [id number] [place] [address]- 1906 May, [facility] [place] [facility] [address] [id number] [place] [address]- 3471 May, [facility] [place] [facility] [address] [id number] [place] [address]- 1425 May, [facility] [place] [facility] [address] [id number] [place] [address]- 4370 May, [facility] [place] [facility] [address] [id number] [place] [address]- 4300 May, [facility] [place] [facility] [address] [id number] [place] [address]- 0441 May, [facility] [place] [facility] [address] [id number] [place] [address]- 6701 Apr, [facility] [place] [facility] [address] [id number] [place] [address]- 9587 Apr, [facility] [place] [facility] [address] [id number] [place] [address]- 8972 Apr, [facility] [place] [facility] [address] [id number] [place] [address]- 0192 Apr, [facility] [place] [facility] [address] [id number] [place] [address]- 8091 Apr, [facility] [place] [facility] [address] [id number] [place] [address]- 9478 Apr, [facility] [place] [facility] [address] [id number] [place] [address]- 5416 Apr, [facility] [place] [facility] [address] [id number], [place] [address]- 5179 Apr, [facility] [place] [facility] [address] [id number] [place] [address]- 9281 Apr, [facility] [place] [facility] [address] [id number] [place] [address]- 0155 Mar, [facility] [place] [facility] [address] [id number] [place] [address]- 2248 Mar, [facility] [place] [facility] [address] [id number] [place] [address]- 5293 Mar, [facility] [place] [facility] [address] [id number] [place] [address]- 0921 Mar, [facility] [place] [facility] [address] [id number] [place] 3688 Mar, [facility] [place] [facility] [address] [id number] [place] [address]- 4310 Feb, [facility] [place] [facility] [address] [id number] [place] [address]- 8540 Feb, [facility] [place] [facility] [address] [id number] [place] [address]- 3488 Feb, [facility] [place] [facility] [address] [id number] [place] [address]- 8815 Feb, [facility] [place] [facility] [address] [id number] [place] [address]- 5531 Feb, [facility] [place] [facility] [address] [id number] [place] [address]- 3528 Feb, [facility] [place] [facility] [address] [id number] [place] [address]- 9840 Feb, [facility] [place] [facility] [address] [id number] [place] [address]- 6698 Feb, [facility] [place] [facility] [address] [id number] [place] [address]- 1552 Feb, [facility] [place] [facility] [address] [id number], [place] [address]- 4755 Feb, [facility] [place] [facility] [address] [id number] [place] [address]- 1643 Feb, [facility] [place] [facility] [address] [id number] [place] [address]- 0530 Feb, [facility] [place] [facility] [address] [id number] 3331 Feb, [facility] [place] [facility] [address] [id number] [place] [address]- 5220 Feb, [facility] [place] [facility] [address] [id number] [place] [address]- 1203 Feb, [facility] [place] [facility] [address] [id number] [place] [address]- 2753 Feb, [facility] [place] [facility] [address] [id number] [place] [address]- 2379 Jan, [facility] [place] [facility] [address] [id number] [place] [address]- 6210 23 Jan, 2014 [facility] [place] [facility] [address] [id number] [place] [address]- 9109 20 Jan, 2014 [facility] [place] [facility] [address] [id number] [place] [address]- 1220 Jan, [facility] [place] [facility] [address] [id number] [place] [address]- 6025 Jan, [facility] [place] [facility] [address] [id number] [place] [address]- 5340 Jan, [facility] [place] [facility] [address] [id number] [place] [address]- 3613 Jan, [facility] [place] [facility] [address] [id number] [place] [address]- 2702 Jan, [facility] [place] [facility] [address] [id number] [place] [address]- 4854 Dec, [facility] [place] [facility] [address] [id number] [place] [address]- 4788 Dec, [facility] [place] [facility] [address] [id number] [place] [address]- 6531 Nov, [facility] [place] [facility] [address] [id number] [place] [address]- 2813 Nov, [facility] [place] [facility] [address] [id number] [place] [address]- 1246 Nov, [facility] [place] [facility] [address] [id number] [place] [address]- 0244 Nov, [facility] [place] [facility] [address] [id number] [place] [address]- 5121 Nov, [facility] [place] [facility] [address] [id number] [place] [address]- 2192 Nov, [facility] [place] [facility] [address] [id number] [place] [address]- 9776 Nov, [facility] [place] [facility] [address] [id number] [place] 3606 Nov, [facility] [place] [facility] [address] [id number] [place] [address]- 1391 Nov, [facility] [place] [facility] [address] [id number] [place] [address]- 7751 Oct, [facility] [place] [facility] [address] [id number] [place] [address]- 7251 Oct, [facility] [place] [facility] [address] [id number] [place] [address]- 8331 Oct, [facility] [place] [facility] [address] [id number] [place] [address]- 0137 Oct, [facility] [place] [facility] [address] [id number] [place] [address]- 2202 Oct, [facility] [place] [facility] [address] [id number] [place] [address]- 3676 Oct, [facility] [place] [facility] [address] [id number] [place] [address]- 4384 September, [facility] [place] [facility] [address] [id number] [place] [address]- 6414 September, [facility] [place] [facility] [address] [id number] [place] [address]- 5421 September, [facility] [place] [facility] [address] [id number] [place] [address]- 8424 September, [facility] [address] [id number] [place] 8684 September, [facility] [address] [id number] [place] [address]- 0473 September, [facility] [address] [id number] [place] [address]- 9145 September, [facility] [address] [id number] [place] [address]- 4827 September, [facility] [address] [id number] [place] [address]- 6285 September, [facility] [address] [id number] [place] [address]- 1557 September, [facility] [address] [id number] [place] [address]- 5324 September, [facility] [address] [id number] [place] [address]- 9643 September, [facility] [address] [id number] [place] [address]- 7391 September, [facility] [address] [id number] [place] [address]- 7087 September, [facility] [address] [id number] [place] [address]- 6153 September, [facility] [address] [id number] [place] [address]- 5980 September, [facility] [address] [id number] [place] [address]- 6425 September, [facility] [address] [id number] [place] [address]- 6256 September, [facility] [address] [id number] [place] [address]- 1161 September, [facility] [place] [facility] [address] [id number] [place] [address]- 1477 September, [facility] [place] [facility] [address] [id number] [place] [address]- 8515 Aug, [facility] [place] [facility] [address] [id number] [place] [address]- 9199 Aug, [facility] [place] [facility] [address] [id number] [place] [address]- 0608 Aug, [facility] [place] [facility] [address] [id number] [place] [address]- 5481 Aug, [facility] [place] [facility] [address] [id number] [place] [address]- 0629 Aug, [facility] [place] [facility] [address] [id number] [place] [address]- 0919 Aug, [facility] [place] [facility] [address] [id number] [place] [address]- 0343 Aug, [facility] [place] [facility] [address] [id number] [place] [address]- 9791 Aug, [facility] [place] [facility] [address] [id number] [place] [address]- 8109 Aug, [facility] [place] [facility] [address] [id number] [place] [address]- 3597 Aug, [facility] [place] [facility] [address] [id number] [place] [address]- 8898 Aug, [facility] [place] [facility] [address] [id number] [place] [address]- 5396 Aug, [facility] [place] [facility] [address] [id number] [place] [address]- 7289 Aug, [facility] [place] [facility] [address] [id number] [place] [address]- 8441 Aug, [facility] [place] [facility] [address] [id number] [place] [address]- 0991 03 Aug, 2013 [facility] [place] [facility] [address] [id number] [place] [address]- 8036 31 Jul, 2013 [facility] [place] [facility] [address] [id number] [place] [address]- 0480 31 Jul, 2013 [facility] [place] [facility] [address] [id number] [place] [address]- 6774 27 Jul, 2013 [facility] [place] [facility] [address] [id number] [place] [address]- 0771 27 Jul, 2013 [facility] [place] [facility] [address] [id number] [place] [address]- 7663 20 Jul, 2013 [facility] [place] [facility] [address] [id number] [place] [address]- 6753 20 Jul, 2013 [facility] [place] [facility] [address] [id number] [place] [address]- 5377 18 Jul, 2013 [facility] [place] [facility] [address] [id number] [place] [address]- 6303 18 Jul, 2013 [facility] [place] [facility] [address] [id number] [place] [address]- 5446 06 Jul, 2013 [facility] [place] [facility] [address] [id number] [place] [address]- 3143 06 Jul, 2013 [facility] [place] [facility] [address] [id number] [place] [address]- 6559 04 Jul, 2013 [facility] [place] [facility] [address] [id number] [place] [address]- 7131 04 Jul, 2013 [facility] [place] [facility] [address] [id number] [place] [address]- 2873 03 Jul, 2013 [facility] [place] [facility] [address] [id number] [place] [address]- 1222 03 Jul, 2013 [facility] [place] [facility] [address] [id number] [place] [address]- 7474 Jul, [facility] [place] [facility] [address] [id number] [place] [address]- 3561 Jun, [facility] [place] [facility] [address] [id number] [place] [address]- 9718 Jun, [facility] [place] [facility] [address] [id number] [place] [address]- 3126 Jun, [facility] [place] [facility] [address] [id number] [place] [address]- 0696 Jun, [facility] [place] [facility] [address] [id number] [place] [address]- 4016 Jun, [facility] [place] [facility] [address] [id number] [place] [address]- 7167 Jun, [facility] [place] [facility] [address] [id number] [place] [address]- 9373 May, [facility] [place] [facility] [address] [id number] [place] [address]- 0838 May, [facility] [place] [facility] [address] [id number] [place] [address]- 6795 May, [facility] [place] [facility] [address] [id number] [place] [address]- 0673 May, [facility] [place] [facility] [address] [id number] [place] [address]- 5213 May, [facility] [place] [facility] [address] [id number] [place] [address]- 6213 May, [facility] [place] [facility] [address] [id number] [place] [address]- 1460 May, [facility] [place] [facility] [address] [id number] [place] [address]- 2928 May, [facility] [place] [facility] [address] [id number] [place] [address]- 6560 May, [facility] [place] [facility] [address] [id number] [place] [address]- 2994 May, [facility] [address] [id number] [place] [address]- 3752 May, [facility] [place] [facility] [address] [id number] [place] 5194 May, [facility] [place] [facility] [address] [id number] [place] [address]- 3993 May, [facility] [place] [facility] [address] [id number] [place] [address] May, [facility] [place] [facility] [address] [id number] [place] [address] May, [facility] [place] [facility] [address] [id number] [place] [address] Apr, [facility] [place] [facility] [address] [id number] [place] [address] Apr, [facility] [place] [facility] [address] [id number] [place] [address] Apr, [facility] [place] [facility] [address] [id number] [place] [address] Apr, [facility] [place] [facility] [address] [id number] [place] [address] Apr, [facility] [place] [facility] [address] [id number] [place] [address] Apr, [facility] [place] [facility] [address] [id number] [place] [address] Apr, [facility] [place] [facility] [address] [id number] [place] [address] Apr, [facility] [place] [facility] [address] [id number] [place] [address] Apr, [facility] [place] [facility] [address] [id number] [place] [address] Apr, [facility] [place] [facility] [address] [id number] [place] [address] Mar, [facility] [address] [id number] [place] [address] Mar, [facility] [address] [id number] [place] [address] Mar, [facility] [address] [id number] [place] [address] Mar, [facility] [address] [id number] [place] [address] Mar, [facility] [address] [id number] [place] [address] Mar, [facility] [address] [id number] [place] [address] Mar, [facility] [address] [id number] [place] [address] Mar, [facility] [address] [id number] [place] [address] Mar, [facility] [address] [id number] [place] [address]- [address] Mar, [facility] [address] [id number] [place] [address] 39[address] Mar, [facility] [address] [id number] [place] [address] Mar, [facility] [address] [id number], [place] [address] Mar, [facility] [place] [facility] [address] [id number] [place] [address] Mar, [facility] [address] [id number] [place] [address] Mar, [facility] [address] [id number] [place] [address] 24[address] Mar, [facility] [place] [facility] [address] [id number] [place] [address]- [address] 14 Mar, 2013 [facility] [place] [facility] [address] [id number] [place] [address] 14 Mar, 2013 [facility] [place] [facility] [address] [id number] [place] [address] Mar, [facility] [place] [facility] [address] [id number] [place] [address] Mar, [facility] [place] [facility] [address] [id number] [place] [address] Mar, [facility] [place] [facility] [address] [id number] [place] [address] Mar, [facility] [place] [facility] [address] [id number] [place] [address] Mar, [facility] [place] [facility] [address] [id number] [place] [address] Feb, [facility] [place] [facility] [address] [id number] [place] [address] Feb, [facility] [place] [facility] [address] [id number], [place] [address] Feb, [facility] [place] [facility] [address] [id number], [place] [address] 16 Feb, 2013 [facility] [place] [facility] [address] [id number], [place] [address] 15 Feb, 2013 [facility] [place] [facility] [address] [id number] [place] [address]676 Feb, [facility] [place] [facility] [address] [id number], [place] [address] Feb, [facility] [place] [facility] [address] [id number] [address] Feb, [facility] [place] [facility] [address] [id number] [place] [address] Feb, [facility] [address] [id number] [place] [address]- [address] Feb, [facility] [place] [facility] [address] [id number] [place] [address] 30 Jan, 2013 [facility] [place] [facility] [address] [id number] [place] [address] 26 Jan, 2013 [facility] [place] [facility] [address] [id number] [place] [address]- [address] 24 Jan, 2013 [facility] [place] [facility] [address] [id number] [place] [address] 23 Jan, 2013 [facility] [place] [facility] [address] [id number] [place] [address] Jan, [facility] [address] [id number] [place] [address] Dec, [facility] [place] [facility] [address] [id number] [place] [address]- 17[address] Dec, [facility] [place] [facility] [address] [id number] [place] [address]- [address] Dec, [facility] [place] [facility] [address] [id number] [place] [address]- [address]93 Dec, [facility] [place] [facility] [address] [id number] [place] [address]44 Dec, [facility] [place] [facility] [address] [id number] [place] [address] Dec, [facility] [place] [facility] [address] [id number] [place] [address]- 240[address] Dec, [facility] [place] [facility] [address] [id number] [place] [address] Nov, [facility] [place] [facility] [address] [id number] [place] [address]- 0416 Nov, [facility] [place] [facility] [address] [id number] [place] [address]- [address] 15 Nov, 2012 [facility] [address] [id number] [place] [address]- [address] 05 Nov, 2012 [facility] [place] [facility] [address] [id number] [place] [address]- 25[address] Nov, [facility] [place] [facility] [address] [id number] [place] [address] Oct, [facility] [place] [facility] [address] [id number] [place] [address]- [address] Oct, [facility] [place] [facility] [address] [id number] [place] [address] Oct, [facility] [address] [id number] [place] [address]- [address] September, [facility] [address] [id number] [place] [address] September, [facility] [address] [id number] [place] [address] September, [facility] [address] [id number] [place] [address] September, [facility] [address] [id number] [place] [address] September, [facility] [place] [facility] [address] [id number] [place] [address] September, [facility] [place] [facility] [address] [id number] [place] [address] September, [facility] [place] [facility] [address] [id number] [place] [address] 1016 30 Aug, 2012 [facility] [place] [facility] [address] [id number] [place] [address]46 Aug, [facility] [place] [facility] [address] [id number] [place] [address] 4261 11 Aug, 2012 [facility] [address] [id number] [place] [address] 6[address] 29 Jul, 2012 [facility] [address] [id number] [place] [address] 27 Jul, 2012 [facility] [address] [facility] [id number] [place] [address]- 8496 26 Jul, 2012 [facility] [place] [facility] [address] [facility] [id number] [place] [address]- 7252 20 Jul, 2012 [facility] [address] [facility] [id number] [place] [address]- 3641 18 Jul, 2012 [facility] [address] [facility] [id number] [place] [address]- 6944 18 Jul, 2012 [facility] [address] [facility] [id number] [place] [address]- 3445 Jul, [facility] [place] [facility] [address] [facility] [id number], [place] [address] 28 Jun, 2012 [facility] [address] [facility] [id number] [place] [address]- 2182 27 Jun, 2012 [facility] [place] [facility] [address] [facility] [id number] [place] [address]- 7917 22 Jun, 2012 [facility] [address] [id number], [place] [address] 20 Jun, 2012 [facility] [place] [facility] [address] [facility] [id number], [place] [address] 15 Jun, 2012 [facility] [place] [facility] [address] [facility] [id number] [place] [address]- 6[address] 15 Jun, 2012 [facility] [place] [facility] [address] [facility] [id number] [address]45 13 Jun, 2012 [facility] [place] [facility] [id number], [place] [address] 12 Jun, 2012 [facility] [place] [facility] [address] [id number] [place] [address]- 3416 Jun, [facility] [address] [id number] [place] [address]- 2606 Jun, [facility] [place] [facility] [address] [id number] [place] [address]- 6596 May, [facility] [address] [id number] [place] [address]- 7149 May, [facility] [address] [id number] [place] [address]- 3427 May, [facility] [address] [id number] [place] [address]- 0176 May, [facility] [address] [id number] [place] [address]- 1609 May, [facility] [address] [id number] [place] [address]- 4019 May, [facility] [address] [id number] [place] [address]- 8795 Apr, [facility] [address] [id number] [place] [address]- 1383 Apr, [facility] [address] [id number] [place] [address] Apr, [facility] [address] [id number] [place] [address]- 4223 Apr, [facility] [place] [facility] [address] [id number] [place] [address]- 1451 Apr, [facility] [place] [facility] [address] [id number] [place] [address]- 1577 Apr, [facility] [place] [facility] [address] [id number] [place] [address]- 6179 Apr, [facility] [place] [facility] [address] [id number], [place] [address] Mar, [facility] [place] [facility] [address] [id number] [place] [address]- 5868 29 Mar, 2012 [facility] [place] [facility] [address] [id number] [place] [address]- 5148 Mar, [facility] [place] [facility] [address] [id number] [place] [address]- 7895 Mar, [facility] [place] [facility] [address] [id number] [place] [address]- 3112 Mar, [facility] [place] [facility] [address] [id number] [place] [address]- 0588 Mar, [facility] [place] [facility] [address] [id number] [place] [address]- 0682 Mar, [facility] [place] [facility] [address] [id number] [place] [address]- 0198 Mar, [facility] [place] [facility] [address] [id number] [place] [address]- 7098 Mar, [facility] [place] [facility] [address] [id number] [place] [address]- 3687 Mar, [facility] [place] [facility] [address] [id number] [place] [address]- 1743 Mar, [facility] [place] [facility] [address] [id number], [place] [address] 1672 Mar, [facility] [place] [facility] [address] [id number], [place] [address]- 4177 Mar, [facility] [place] [facility] [address] [id number] [place] [address]- 8323 Mar, [facility] [place] [facility] [address] [id number] [place] [address]- 7971 Mar, [facility] [place] [facility] [address] [facility] [id number], [place] [address]- 4861 Mar, [facility] [place] [facility] [address] [id number] [place] [address]- 5163 Mar, [facility] [address] [id number] [place] [address]- 0632 Feb, [facility] [place] [facility] [address] [id number] [place] [address] Feb, [facility] [address] [id number] [place] [address]- 6165 Feb, [facility] [place] [facility] [address] [id number] [place] [address]- 8887 Feb, [facility] [address] [id number] [place] [address]- 7512 Feb, [facility] [place] [facility] [address] [id number] [place] [address]- 7910 Feb, [facility] [place] [facility] [address] [id number] [place] [address]- 7985 Feb, [facility] [place] [facility] [address] [id number] [place] [address]- 9776 Feb, [facility] [place] [facility] [address] [id number] [place] [address]- 1139 Feb, [facility] [address] [facility] [id number] [place] [address]- 5363 Feb, [facility] [place] [facility] [address] [id number] [place] [address]- 2664 Feb, [facility] [place] [facility] [address] [id number] [place] [address]- 1195 27 Jan, 2012 [facility] [place] [facility] [address] [id number] [place] [address]- 4666 25 Sep2011 [facility] [place] [facility] [address] [id number] [place] [address]- 6720 13 Jan, 2012 [facility] [place] [facility] [address] [id number] [place] [address]- 2349 Jan, [facility] [place] [facility] [address] [id number] [place] [address]- 8361 Jan, [facility] [place] [facility] [address] [id number] [place] [address]- 3498 Dec, [facility] [place] [facility] [address] [id number] [place] [address]- 3941 Dec, [facility] [place] [facility] [address] [id number] [place] [address]- 6768 Dec, [facility] [place] [facility] [address] [id number] [place] [address]- 3234 Dec, [facility] [place] [facility] [address] [id number] [place] [address]- 4643 Dec, [facility] [place] [facility] [address] [id number] [place] [address]- 5453 Dec, [facility] [place] [facility] [address] [id number] [place] [address]- 6495 Dec, [facility] [place] [facility] [address] [id number] [place] [address]- 1711 Dec, [facility] [place] [facility] [address] [id number] [place] [address]- 4965 Nov, [facility] [place] [facility] [address] [id number] [place] [address]- 8807 Nov, [facility] [place] [facility] [address] [id number] [place] [address]- 9041 Nov, [facility] [place] [facility] [address] [id number] [place] [address]- 6859 Nov, [facility] [place] [facility] [address] [id number] [place] [address]- 3357 Nov, [facility] [place] [facility] [address] [id number] [place] [address]- 0544 Oct, [facility] [place] [facility] [address] [id number] [place] [address]- 5459 Oct, [facility] [address] [id number] [place] [address]- 7334 September, [facility] [address] [id number] [place] [address]- 5531 September, [facility] [address] [id number] [place] [address]- 3201 September, [facility] [address] [id number] [place] [address]- 4731 September, [facility] [address] [id number] [place] [address]- 2653 September, [facility] [address] [id number] [place] [address]- 3202 September, [facility] [address] [id number] [place] [address]- 7186 September, [facility] [address] [id number] [place] [address]- 1998 September, [facility] [address] [id number] [place] [address]- 2866 September, [facility] [address] [id number] [place] [address]- 0912 September, [facility] [address] [id number] [place] [address]- 5580 September, [facility] [place] [facility] [address] [id number] [place] [address]- 5840 September, [facility] [place] [facility] [address] [id number] [place] [address]- 2704 September, [facility] [place] [facility] [address] [id number] [place] [address]- 3862 September, [facility] [address] [id number] [place] [address]- 4503 Aug, [facility] [place] [facility] [address] [id number] [place] [address]- 7236 20 Aug, 2011 [facility] [place] [facility] [address] [id number] [place] [address]- 1736 13 Aug, 2011 [facility] [place] [facility] [address] [id number] [place] [address]- 2546 11 Aug, 2011 [facility] [place] [facility] [address] [id number] [place] [address]- 8486 23 Jul, 2011 [facility] [place] [facility] [address] [id number] [place] [address]- 3416 13 Jul, 2011 [facility] [place] [facility] [address] [id number] [place] [address]- 5956 13 Jul, 2011 [facility] [address] [facility] [id number] [place] [address]- 7837 28 Jun, [address] [facility] [address] [id number] [id number] 26 Jun, 2011 [facility] [address] [id number] [place] [address]- 3313 13 Jun, 2011 [facility] [address] [id number] [place] [address]- 5036 10 Jun, 2011 [facility] [address] [id number] [place] [address]- 5716 07 Jun, 2011 [facility] [place] [facility] [address] [id number] [place] [address]- 3996 07 Jun, 2011 [facility] [place] [facility] [address] [id number] [place] [address]- 6946 03 Jun, 2011 [facility] [place] [facility] [address] [id number] [place] [address]- 7916 02 Jun, 2011 [facility] [place] [facility] [address] [id number] [place] [address]- 2236 May, [facility] [place] [facility] [address] [id number] [place] [address]- 4429 30 May, 2011 [facility] [address] [id number] [place] [address]- 6821 May, [facility] [place] [facility] [address] [id number] [place] [address]- 7786 May, [facility] [address] [id number] [place] [address]- 8085 May, [facility] [place] [facility] [address] [id number] [place] [address]- 6649 May, [facility] [address] [id number] [place] [address]- 7022 May, [facility] [place] [facility] [address] [id number] [place] [address]- 4595 May, [facility] [address] [id number] [place] [address]- 8724 May, [facility] [place] [facility] [address] [id number] [place] [address]- 4114 May, [facility] [address] [id number] [place] [address]- 0356 May, [facility] [place] [facility] [address] [id number] [place] [address]- 4304 May, [facility] [address] [id number] [place] [address]- 2219 May, [facility] [place] [facility] [address] [id number], [place] [address]- 7108 May, [facility] [place] [facility] [address] [id number] [place] [address]- 4246 Apr, [facility] [place] [facility] [address] [id number] [place] [address]- 5896 Apr, [facility] [place] [facility] [address] [id number] [place] [address]- 2916 Apr, [facility] [place] [facility] [address] [id number] [place] [address]- 4821 17 Mar, 2011 [facility] [address] [id number] [place] [address]- 3231 Mar, [facility] [place] [facility] [address] [id number] [place] [address]- 3816 31 Feb, 2011 [facility] [address] [id number] [place] [address]- 5606 26 Feb, 2011 [facility] [place] [facility] [address] [id number] [place] [address] 2546 21 Feb, 2011 [facility] [address] [id number] [place] [address]- 3941 20 Feb, 2011 [facility] [address] [id number] [place] [address]- 7364 13 Feb, 2011 [facility] [address] [id number] [place] [address]- 1716 28 Apr, 2010 [facility] [address] [id number] [place] [address]- 1481 22 Apr, 2010 [facility] [place] [facility] [address] [id number] [place] [address] 2547 16 Apr, 2010 [facility] [address] [id number] [place] [address] 2549 15 Apr, 2010 [facility] [place] [facility] [address] [id number] [place] [address] 2546 15 Apr, 2010 [facility] [place] [facility] [address] [id number] [place] [address] 2542 Apr, [facility] [place] [facility] [address] [id number] [place] [address] 2549 24 Mar, 2010 [facility] [place] [facility] [address] [id number] [place] [address]- 2546 17 Mar, 2010 [facility] [place] [facility] [address] [id number] [place] [address] 2540 17 Mar, 2010 [facility] [address] [id number], [place] [address]- 7679 28 Feb, 2010 [facility] [id number], [place] [address]- 9522 Feb, [facility] [id number], [place] [address]- 9813 Feb, [facility] [id number], [place] [address]- 5299 15 Feb, 2010 [facility] [id number], [place] [address]- 2706 Dec, [facility] [id number], [place] [address]- 0154 Dec, [facility] [id number], [place] [address]- 9138 Oct, [facility] [id number], [place] [address]- 3036 Mar, [facility] [id number], [place] [address]- 0954 Mar, [facility] [address] [id number], [place] [address]- 4559 September, IMMUNIZATIONS No Known Immunizations SOCIAL HISTORY Never Assessed REASON FOR VISIT Question PLAN OF CARE VITAL SIGNS MEDICATIONS Unknown [...]
--- OUTSIDE RECORDS SUMMARY | 2018-01-08 15:19 | XMS REPORT ---
Author Author VALERIE ZAVALA [facility] Address [address] [place] [address] Care Team Providers Care Batch Unit Treater Name Role Phone VALERIE ZAVALA Unavailable PROBLEMS Type Condition ICD9-CM Code UQC56-BD Code Onset Dates Condition Status SNOMED Code Problem Generalized anxiety disorder F41.1 Active 41962803 Problem Hypokalemia E87.6 Active 072124152 Problem Right low back pain, with sciatica presence unspecified M54.5 Active 032184423 Problem Post-traumatic stress disorder, chronic F43.12 Active 94508419 Problem Pain in right knee M25.561 Active 47588610 Problem Gastroesophageal reflux disease without esophagitis K21.9 Active 788397374 Problem UTI symptoms R39.9 Active 93237031 Problem Essential hypertension I10 Active 86637418 Problem Anxiety F41.9 Active 46458061 Problem Neuropathy G62.9 Active 479272342 Problem Other chronic pain G89.29 Active 30408772 Problem Generalized abdominal pain R10.84 Active 914409584 Problem Chronic pain G89.29 Active 20038740 Problem Back pain M54.9 Active 506195175 Problem Right foot pain M79.671 Active 16890924 Problem Panic attacks F41.0 Active 373888621 Problem Other emphysema J43.8 Active 48981011 Problem Kidney stones N20.0 Active 83134095 Problem Renal calculus, right N20.0 Active 61643062 Problem Weight decrease R63.4 Active 464282593 Problem Tobacco abuse Z72.0 Active 64616229 Problem Bone pain M89.8X9 Active 34602686 Problem Depression, unspecified depression type F32.9 Active 82071866 Problem Insomnia, unspecified type G47.00 Active 266237535 Problem Pulmonary emphysema, unspecified emphysema type J43.9 Active 76753127 Problem Right upper quadrant abdominal pain R10.11 Active 121046855 Problem Weight loss R63.4 Active 365278523 ALLERGIES No Information ENCOUNTERS Encounter Location Date Diagnosis [facility] [place] [address], [place] [address] Dec, [facility] [place] [id number] [place] [address] 67905- 1108 Dec, [facility] [place] [id number] [place] [address] 05453- 4335 Dec, [facility] [place] [id number] [place] [address] 50679- 5337 Dec, Medicare welcome exam Z00.00 [facility] [place] [id number] [place] [address] 26582- 1733 Nov, [facility] [place] [id number] [place] [address] 20233- 2888 Nov, Pelvic pain R10.2 ; Acute pyelonephritis N10 and Essential hypertension I10 [facility] [place] [id number] [place] [address] 12774- 6429 Oct, Medicare welcome exam Z00.00 [facility] [place] [id number] [place] [address] 49806- 2632 Oct, Gross hematuria R31.0 ; Urinary tract infection without hematuria, site unspecified N39.0 and Weakness R53.1 [facility] [place] [address], [place] [address] 1155 Oct, [facility] [place] [id number] [place] [address] 76089- 3598 Oct, [facility] [place] [id number] [place] [address] 10812- 7810 Oct, Medicare welcome exam Z00.00 [facility] [place] [id number] [place] [address] 07346- 9477 September, Back pain M54.9 and Right anterior knee pain M25.561 [facility] [place] [id number] [place] [address] 14023- 1616 September, [facility] [place] [address], [place] [address] 6412 September, [facility] [place] [id number] [place] [address] 23001- 1597 September, Essential hypertension I10 [facility] [place] [id number] [place] [address] 55588- 3447 September, [facility] [place] [id number] [place] [address] 67100- 8995 September, RLQ abdominal pain R10.31 ; Low back pain M54.5 and Other chronic pain G89.29 [facility] [place] [id number] [place] [address] 07615- 8305 Aug, Medicare welcome exam Z00.00 [facility] [place] [id number] [place] [address] 48366- 4421 Aug, [facility] [place] [id number] [place] [address] 92904- 9233 Aug, Acute pyelonephritis N10 and Medicare welcome exam Z00.00 [facility] [id number] [place] [address] 27149 -4325 Aug, Dysuria R30.0 and Acute pyelonephritis N10 [facility] [place] [address], [place] [address]- 2479 Aug, [facility] [place] [address], [place] [address]- 7719 Aug, [facility] [place] [id number] [place] [address] 54666- 8109 Aug, [facility] [place] [address], [place] [address] 5732 Aug, [facility] [place] [address], [place] [address]- 5178 Jul, [facility] [place] [id number] [place] [address] 65613- 9660 Jul, Renal calculus, right N20.0 and Medicare welcome exam Z00.00 [facility] [id number] [place] [address] 19310 -1840 Jul, Dysuria R30.0 and Renal calculus, right N20.0 [facility] [id number] [place] [address] 01246- 5010 Jul, Medicare welcome exam Z00.00 [facility] [id number] [place] [address] 59391- 2264 Jun, Gastroesophageal reflux disease without esophagitis K21.9 and Generalized abdominal pain R10.84 [facility] [id number] [place] [address] 00230- 1589 Jun, Medicare welcome exam Z00.00 [facility] [id number] [place] [address] 69540- 9025 Jun, [facility] [id number] [place] [address] 25693- 5825 Jun, Medicare welcome exam Z00.00 and Encounter for screening mammogram for malignant neoplasm of breast Z12.31 [facility] [id number] [place] [address] 26052- 6533 Jun, Chronic pain G89.29 [facility] [id number] [place] [address] 90221- 1798 May, [facility] [id number] [place] [address] 77522- 9018 May, Pelvic pain R10.2 [facility] [id number] [place] [address] 68571- 1681 May, Pelvic pain R10.2 [facility] [id number] [place] [address] 21550 -3466 May, Renal calculus, right N20.0 [facility] [place] [id number] [place] [address] 45322- 6951 May, Hematuria, unspecified type R31.9 and Nephrolithiasis N20.0 [facility] [id number] [place] [address] 76989 -8710 May, Dysuria R30.0 and Nephrolithiasis N20.0 [facility] [place] [id number] [place] [address] 86374- 9764 May, [facility] [id number] [place] [address] 42528 -9469 May, Abdominal pain R10.9 and Kidney stone N20.0 [facility] [id number] [place] [address] 07468- 1768 May, [facility] [id number] [place] [address] 82591- 1613 May, Chronic pain G89.29 and Panic attacks F41.0 [facility] [id number] [place] [address] 38996- 6324 May, Urinary tract infection without hematuria, site unspecified N39.0 [facility] [id number] [place] [address] 54849- 1145 Apr, Right lower quadrant abdominal pain R10.31 and Abnormal serum lipase level R74.8 [facility] [id number] [place] [address] 17841- 9467 Apr, Recurrent urinary tract infection N39.0 [facility] [id number] [place] [address] 69914- 9886 Apr, UTI symptoms R39.9 ; Recurrent urinary tract infection N39.0 and Pelvic pain R10.2 [facility] [id number] [place] [address] 16315- 0113 Apr, Chronic pain G89.29 and Panic attacks F41.0 [facility] [id number] [place] [address] 44078- 5463 Apr, Dysuria R30.0 [facility] [address] 30913- 4514 Apr, [facility] [place] [address] 60452- 4488 Apr, Dysuria R30.0 and Urinary tract infection without hematuria , site unspecified N39.0 [facility] [facility] [address] 49259- 4401 Mar, UTI symptoms R39.9 [facility] [address] 46017- 6481 Mar, [facility] [address] 27082- 1049 Mar, Panic attacks F41.0 and Chronic pain G89.29 [facility] [address] 95771- 6818 Mar, [facility] [id number] [place] [address] 53573- 2201 Mar, Dysuria R30.0 [facility] [address] 75850- 1218 Mar, Dysuria R30.0 [facility] [id number] [place] [address] 82028- 9518 Feb, Chronic pain G89.29 ; Shortness of breath R06.02 ; Weight loss R63.4 ; Encounter for immunization Z23 ; Bone pain M89.8X9 ; Right anterior knee pain M25.561 and Cough R05 [facility] [address] 45107- 7159 Feb, Shortness of breath R06.02 [facility] [address] 91066- 6489 Feb, [facility] [address] 87717- 5717 Feb, Panic attacks F41.0 and Chronic pain G89.29 [facility] [address] 49933- 1120 Feb, [facility] [address] 50869- 8526 Feb, Panic attacks F41.0 ; Shortness of breath R06.02 and Encounter for immunization Z23 [facility] [address] 86395- 1741 Jan, [facility] [address] 35215- 3289 Jan, Anxiety F41.9 and Chronic pain G89.29 [facility] [address] 28970- 7600 Dec, Anxiety F41.9 and Chronic pain G89.29 [facility] [facility] [address] 90951- 1056 Nov, Chronic pain G89.29 [facility] [address] 20092- 9131 Nov, Anxiety F41.9 [facility] [facility] [address] 01454- 9491 Nov, Chronic pain G89.29 ; Essential hypertension I10 and Other emphysema J43.8 [facility] [address] 33698- 3030 Oct, Anxiety F41.9 [facility] [address] 38058- 9333 Oct, [facility] [address] 51967- 5588 Oct, Chronic pain G89.29 [facility] [facility] [address] 35293- 0972 September, Recurrent UTI N39.0 ; Neuropathy G62.9 and Anxiety F41.9 [facility] [place] [id number] [place] [address] 80166- 8074 September, [facility] [place] [id number] [place] [address] 21162- 1069 September, Chronic pain G89.29 [facility] [place] [id number] [place] [address] 01550- 7215 September, [facility] [place] [id number] [place] [address] 19542- 8880 Aug, Post-traumatic stress disorder, chronic F43.12 ; Chronic urinary tract infection N39.0 ; Gastroesophageal reflux disease without esophagitis K21.9 ; Chronic pain G89.29 ; Essential hypertension I10 and Tobacco abuse Z72.0 [facility] [id number] [place] [address] 70247 -5461 Aug, [facility] [place] [id number] [place] [address] 50301- 6727 Aug, Chronic pain G89.29 [facility] [place] [id number] [place] [address] 52543- 8641 Aug, Insomnia, unspecified type G47.00 [facility] [place] [id number] [place] [address] 31563- 6011 Aug, [facility] [place] [id number] [place] [address] 75641- 5143 Jul, Chronic pain G89.29 [facility] [place] [id number] [place] [address] 78153- 7376 Jul, [facility] [place] [id number] [place] [address] 95921- 9087 Jul, [facility] [place] [id number] [place] [address] 82438- 2308 Jul, [facility] [place] [id number] [place] [address] 66890- 1397 15 Jul, 2016 Recurrent UTI (urinary tract infection) N39.0 [facility] [place] [id number] [place] [address] 61729- 4116 14 Jul, 2016 [facility] [place] [id number] [place] [address] 30999- 8078 27 Jun, 2016 Chronic pain G89.29 [facility] [place] [id number] [place] [address] 25652- 0888 17 Jun, 2016 [facility] [place] [id number] [place] [address] 59365- 1152 Jun, [facility] [place] [id number] [place] [address] 17397- 9011 May, Chronic pain G89.29 [facility] [place] [id number] [place] [address] 14144- 0602 May, Weight loss R63.4 and Shortness of breath R06.02 [facility] [place] [id number] [place] [address] 73007- 5676 May, Chronic pain G89.29 ; Weight loss R63.4 and Tobacco abuse Z72.0 [facility] [place] [address], [place] [address]- 6040 May, [facility] [place] [id number] [place] [address] 47418- 8715 May, Hypoxia R09.02 [facility] [place] [address], [place] [address]- 7169 May, [facility] [place] [id number] [place] [address] 32080- 6412 May, Pulmonary emphysema, unspecified emphysema type J43.9 [facility] [address], [place] [address] -3019 May, [facility] [place] [id number] [place] [address] 69898- 3815 May, [facility] [place] [id number] [place] [address] 73209- 4031 May, [facility] [place] [id number] [place] [address] 42709- 7271 May, Chronic pain G89.29 ; Encounter for immunization Z23 ; Right anterior knee pain M25.561 and Cough R05 [facility] [place] [address] 51911- 9762 Apr, Chronic pain G89.29 [facility] [place] [address] 66495- 5050 Apr, [facility] [place] [address] 91737- 2559 Apr, Generalized anxiety disorder F41.1 and Depression, unspecified depression type F32.9 [facility] [place] [id number] [place] [address] 73019- 0784 Apr, Chronic pain G89.29 ; Hypokalemia E87.6 and Insomnia, unspecified type G47.00 [facility] [place] [id number] [place] [address] 58684- 8399 Apr, [facility] [place] [id number] [place] [address] 46031- 5997 Apr, Chronic pain G89.29 [facility] [place] [id number] [place] [address] 18713- 9332 Apr, [facility] [place] [id number] [place] [address] 18658- 9985 Mar, [facility] [place] [id number] [place] [address] 86296- 0531 Mar, Insomnia, unspecified type G47.00 [facility] [place] [id number] [place] [address] 76706- 2017 Mar, Chronic pain G89.29 [facility] [place] [address] [place] [address]- 1082 Mar, [facility] [place] [address], [place] [address]- 8175 Feb, [facility] [place] [address], [place] [address]- 3417 Feb, [facility] [place] [address], [place] [address]- 3006 Feb, [facility] [place] [id number] [place] [address]- 6738 Feb, [facility] [place] [id number] [place] [address] 31713- 4199 Feb, [facility] [place] [address], [place] [address]- 7374 29 Jan, 2015 [facility] [place] [id number] [place] [address] 64662- 2343 26 Jan, 2015 [facility] [place] [address], [place] [address]- 6151 20 Jan, 2015 [facility] [place] [address], [place] [address]- 3769 13 Jan, 2015 [facility] [place] [address], [place] [address]- 4945 12 Jan, 2015 [facility] [place] [address], [place] [address]- 5458 07 Jan, 2015 Chronic pain G89.29 [facility] [place] [address], [place] [address]- 1352 Jan, 2016 Chronic pain G89.29 and Fibromyalgia M79.7 [facility] [place] [address], [place] [address]- 8111 Dec, Depression, unspecified depression type F32.9 and Generalized anxiety disorder 300.02 [facility] [place] [address], [place] [address]- 6960 Dec, Dysthymia F34.1 ; Insomnia, unspecified type G47.00 and Chronic pain G89.29 [facility] [place] [id number] [place] [address] 20361- 4224 Dec, Chronic pain G89.29 [facility] [place] [id number] [place] [address] 10974- 5492 Dec, Insomnia, unspecified type G47.00 [facility] [place] [id number] [place] [address] 26373- 1137 Dec, Fibromyalgia M79.7 and Chronic pain G89.29 [facility] [place] [id number] [place] [address] 41110- 7935 Dec, [facility] [place] [id number] [place] [address] 68768- 2783 Dec, [facility] [place] [id number] [place] [address] 01384- 4111 Dec, [facility] [place] [id number] [place] [address] [id number] 2547 Dec, [facility], [place], [facility] [id number] [place] [address] 42153- 0736 Dec, Chronic pain G89.29 [facility], [place], [facility] [id number] [place] [address] 33876- 0591 Dec, [facility], [place], [facility] [id number] [place] [address] [id number] 2543 Dec, [facility], [place], [facility] [id number] [place] [address] [id number] 2540 Dec, [facility], [place], [facility] [id number] [place] [address] 44538- 9122 Dec, Chronic pain G89.29 and Dysthymia F34.1 [facility], [place], [facility] [id number] [place] [address] 73924- 0676 Nov, [facility], [place], [facility] [address] [place] [address] Nov, Hypokalemia E87.6 and Chronic pain G89.29 [facility], [place], [facility] [address] [address]- 0973 Nov, Back pain M54.9 and Pain in right knee M25.561 [facility], [place], [facility] [address] [address]- 1802 Nov, [facility], [place], [facility] [address] [address]- 7509 Nov, Chronic pain G89.29 [place] [address] 18387- 5939 Nov, Chronic pain G89.29 ; Weight loss R63.4 ; Bone pain M89.8X9 and Insomnia, unspecified type G47.00 [place] [address] 68364- 3092 Nov, Chronic pain G89.29 [place] [id number] [place] [address] 27227- 9321 Nov, Chronic pain G89.29 [place] [id number] [place] [address] 35792- 2979 Oct, Chronic pain G89.29 [place] [id number] [place] [address] 79995- 5716 Oct, UTI symptoms R39.9 [facility], [place], [facility] [id number] [place] [address] 06280- 9221 Oct, Chronic pain G89.29 [place] [address] 6[address]99- 1491 20 Oct, 2015 Chronic pain G89.29 [place] [id number] [place] [address] 31738- 5033 13 Oct, 2015 Chronic pain G89.29 [place] [id number] [place] [address] 92352- 4132 Oct, Right upper quadrant abdominal pain R10.11 [facility] [place] [address], [place] [address] 1434 Oct, Chronic pain G89.29 [facility] [place] [address], [place] [address] 5753 Oct, [facility] [place] [id number] [place] [address] 14924- 5858 September, Chronic pain G89.29 [facility] [place] [id number] [place] [address] 85952- 8653 September, Dysuria R30.0 and Urinary tract infection without hematuria , site unspecified N39.0 [facility] [place] [address], [place] [address] 8310 September, [facility] [place] [id number] [place] [address] 50291- 6577 September, Dysuria R30.0 [facility] [place] [id number] [place] [address] 74466- 2845 September, Chronic pain G89.29 [facility] [place] [id number] [place] [address] 09925- 5072 September, Chronic pain G89.29 and Essential hypertension I10 [facility] [place] [address], [place] [address] 6471 September, [facility] [place] [address], [place] [address] 1888 September, [facility] [place] [id number] [place] [address] 78274- 3301 September, [facility] [place] [id number] [place] [address] 30729- 7061 Aug, UTI symptoms R39.9 [facility] [place] [address], [place] [address] 1184 Aug, Dysuria R30.0 [facility] [place] [address], [place] [address]- 1409 Aug, [facility] [place] [id number] [place] [address] 66867- 9831 Aug, [facility] [place] [id number] [place] [address] 20589- 4418 Aug, [facility] [place] [id number] [place] [address] 73561- 1804 Aug, Chronic pain G89.29 [facility] [place] [id number] [place] [address] 26861- 0652 Aug, Dysthymia F34.1 [facility] [place] [id number] [place] [address] 83986- 6261 Aug, Conjunctivitis, unspecified conjunctivitis type, unspecified laterality H10.9 [facility] [place] [id number] [place] [address] 57074- 9297 Jul, Chronic pain G89.29 ; Back pain M54.9 ; Tobacco abuse Z72.0 and Weight decrease R63.4 [facility] [place] [id number] [place] [address] 10391- 1443 Jul, [facility] [place] [id number] [place] [address] 06628- 9958 Jul, [facility] [place] [id number] [place] [address] 01867- 8931 24 Jul, 2015 Chronic pain G89.29 [facility] [place] [id number] [place] [address] 38350- 7032 Jul, [facility] [place] [id number] [place] [address] 36443- 5066 Jul, [facility] [place] [id number] [place] [address] 81087- 6095 Jul, [facility] [place] [id number] [place] [address] 94662- 3593 17 Jul, 2015 [facility] [place] [id number] [place] [address] 43661- 1618 17 Jul, 2015 Chronic pain G89.29 [facility] [place] [id number] [place] [address] 10884- 1696 16 Jul, 2015 Chronic pain G89.29 [facility] [place] [id number] [place] [address] 02635- 0437 15 Jul, 2015 [facility] [place] [id number] [place] [address] 39049- 2096 Jul, [facility] [place] [id number] [place] [address] 47724- 7938 Jul, [facility] [place] [id number] [place] [address] 44758- 8488 Jul, [facility] [place] [id number] [place] [address] 29316- 5625 Jun, [facility] [place] [id number] [place] [address] 98203- 5847 Jun, Depression, unspecified depression type F32.9 [facility] [place] [id number] [place] [address] 77934- 6781 Jun, Pain in right knee M25.561 [facility] [place] [id number] [place] [address] 51477- 7086 24 Jun, 2015 Chronic pain G89.29 ; Back pain M54.9 ; Bone pain M89.8X9 and Weight loss R63.4 [facility] [place] [id number] [place] [address] 17462- 1778 Jun, [facility] [place] [id number] [place] [address] 92328- 5891 May, [facility] [place] [address], [place] [address]- 1088 May, UTI symptoms R39.9 ; Pain in right knee M25.561 ; Right low back pain, with sciatica presence unspecified M54.5 ; Right foot pain M79.671 ; Hypokalemia E87.6 and Screening, lipid Z13.220 [facility] [place] [id number] [place] [address] 96220- 6087 May, [facility] [place] [address] 38280- 6341 May, [facility] [place] [address] 84474- 6461 Mar, [facility] [place] [address] 36549- 6987 Mar, [facility] [place] [address] 71465- 5196 Mar, Hypokalemia E87.6 [facility] [place] [address] 40176- 5148 Mar, Pain in right leg M79.604 ; Encounter for immunization Z23 ; Pain in right knee M25.561 and Hypokalemia E87.6 [facility] [place] [id number] [place] [address] 62137- 7087 Jan, [facility] [place] [id number] [place] [address] 29616- 4539 Jan, [facility] [place] [id number] [place] [address] 82318 2545 Jan, Abdominal pain, generalized 789.07 [facility] [place] [id number] [place] [address] 43996- 9734 Jan, Abdominal pain, generalized 789.07 [facility] [place] [id number] [place] [address] 96070- 2136 Dec, [facility] [place] [id number] [place] [address] 81812- 8800 Dec, [facility] [place] [address], [place] [address]- 8235 Dec, [facility] [place] [address], [place] [address]- 2854 Nov, Hallux valgus 735.0 and Hammertoe 735.4 [facility] [place] [address], [place] [address]- 7916 Nov, [facility] [place] [id number] [place] [address] 88228- 7619 Nov, Hallux valgus 735.0 and Hammer toe 735.4 [facility] [place] [id number] [place] [address] 07070- 5366 Oct, [facility] [place] [address], [place] [address]- 1731 Oct, [facility] [place] [id number] [place] [address] 34101- 6542 Oct, Pre-op evaluation V72.84 [facility] [place] [address], [place] [address]- 4228 Oct, [facility] [place] [address], [place] [address]- 8212 Oct, [facility] [place] [address], [place] [address]- 2615 September, [facility] [place] [address], [place] [address]- 1308 September, [facility] [place] [id number], [place] [address]- 8480 September, Hallux valgus (acquired) 735.0 and Other hammer toe ( acquired) 735.4 [facility] [place] [id number], [place] [address]- 1778 Aug, [facility] [place] [address], [place] [address]- 1891 Aug, [facility] [place] [facility] [address] [id number] [place] [address]- 8724 Jul, [facility] [place] [facility] [address] [id number] [place] [address]- 6197 Jul, [facility] [place] [facility] [address] [id number] [place] [address]- 5315 Jul, [facility] [place] [facility] [address] [id number] [place] [address]- 7852 Jul, 2014 [facility] [place] [facility] [address] [id number] [place] [address]- 5791 Jul, [facility] [place] [facility] [address] [id number] [place] [address]- 3495 Jul, [facility] [place] [facility] [address] [facility] [id number] [place] [address]- 7551 Jul, [facility] [place] [facility] [address] [id number] [place] [address]- 7459 Jul, [facility] [place] [facility] [address] [id number] [place] [address]- 0392 Jun, [facility] [place] [facility] [address] [id number] [place] [address]- 7859 Jun, [facility] [place] [facility] [address] [id number] [place] [address]- 6000 Jun, 2014 [facility] [place] [facility] [address] [id number] [place] [address]- 5633 Jun, 2014 [facility] [place] [facility] [address] [id number] [place] [address]- 6273 Jun, 2014 [facility] [place] [facility] [address] [id number] [place] [address]- 3725 Jun, 2014 [facility] [place] [facility] [address] [facility] [id number] [place] [address]- 3743 Jun, [facility] [place] [facility] [address] [id number] [place] [address]- 2699 Jun, [facility] [place] [facility] [address] [id number] [place] [address]- 5399 Jun, [facility] [place] [facility] [address] [id number] [place] [address]- 1606 Jun, [facility] [place] [facility] [address] [id number] [place] [address]- 3907 May, [facility] [place] [facility] [address] [id number] [place] [address]- 5887 May, [facility] [place] [facility] [address] [id number] [place] [address]- 8125 May, [facility] [place] [facility] [address] [id number] [place] [address]- 8766 May, [facility] [place] [facility] [address] [id number] [place] [address]- 4589 May, [facility] [place] [facility] [address] [id number] [place] [address]- 0923 May, [facility] [place] [facility] [address] [id number] [place] [address]- 8120 May, [facility] [place] [facility] [address] [id number] [place] [address]- 8823 May, [facility] [place] [facility] [address] [id number] [place] [address]- 1900 May, [facility] [place] [facility] [address] [id number] [place] [address]- 2065 May, [facility] [place] [facility] [address] [id number] [place] [address]- 1532 May, [facility] [place] [facility] [address] [id number] [place] [address]- 5396 May, [facility] [place] [facility] [address] [id number] [place] [address]- 3760 May, [facility] [place] [facility] [address] [id number] [place] [address]- 5867 May, [facility] [place] [facility] [address] [id number] [place] [address]- 3039 May, [facility] [place] [facility] [address] [id number] [place] [address]- 6507 May, [facility] [place] [facility] [address] [id number] [place] [address]- 2688 May, [facility] [place] [facility] [address] [id number] [place] [address]- 5362 May, [facility] [place] [facility] [address] [id number] [place] [address]- 3302 Apr, [facility] [place] [facility] [address] [id number] [place] [address]- 6203 Apr, [facility] [place] [facility] [address] [id number] [place] [address]- 7838 Apr, [facility] [place] [facility] [address] [id number] [place] [address]- 2211 Apr, [facility] [place] [facility] [address] [id number] [place] [address]- 3406 Apr, [facility] [place] [facility] [address] [id number] [place] [address]- 9347 Apr, [facility] [place] [facility] [address] [id number], [place] [address]- 1214 Apr, [facility] [place] [facility] [address] [id number] [place] 3307 Apr, [facility] [place] [facility] [address] [id number] [place] [address]- 4884 Apr, [facility] [place] [facility] [address] [id number] [place] [address]- 8101 Mar, [facility] [place] [facility] [address] [id number] [place] [address]- 1479 Mar, [facility] [place] [facility] [address] [id number] [place] [address]- 5803 Mar, [facility] [place] [facility] [address] [id number] [place] [address]- 7883 Mar, [facility] [place] [facility] [address] [id number] [place] [address]- 8536 Mar, [facility] [place] [facility] [address] [id number] [place] [address]- 1408 Feb, [facility] [place] [facility] [address] [id number] [place] [address]- 7380 Feb, [facility] [place] [facility] [address] [id number] [place] [address]- 5390 Feb, [facility] [place] [facility] [address] [id number] [place] [address]- 6034 Feb, [facility] [place] [facility] [address] [id number] [place] [address]- 4215 Feb, [facility] [place] [facility] [address] [id number] [place] [address]- 4503 Feb, [facility] [place] [facility] [address] [id number] [place] [address]- 6005 Feb, [facility] [place] [facility] [address] [id number] [place] [address]- 4973 Feb, [facility] [place] [facility] [address] [id number], [place] [address]- 6089 Feb, [facility] [place] [facility] [address] [id number] [place] [address]- 7462 Feb, [facility] [place] [facility] [address] [id number] [place] [address]- 5926 Feb, [facility] [place] [facility] [address] [id number] 5759 Feb, [facility] [place] [facility] [address] [id number] [place] [address]- 5961 Feb, 2013 [facility] [place] [facility] [address] [id number] [place] [address]- 1405 Feb, [facility] [place] [facility] [address] [id number] [place] [address]- 1102 Feb, [facility] [place] [facility] [address] [id number] [place] [address]- 3288 Feb, [facility] [place] [facility] [address] [id number] [place] [address]- 3774 Jan, [facility] [place] [facility] [address] [id number] [place] [address]- 7891 23 Jan, 2014 [facility] [place] [facility] [address] [id number] [place] [address]- 6878 20 Jan, 2014 [facility] [place] [facility] [address] [id number] [place] [address]- 2234 19 Jan, 2014 [facility] [place] [facility] [address] [id number] [place] [address]- 2439 Jan, [facility] [place] [facility] [address] [id number] [place] [address]- 1824 Jan, [facility] [place] [facility] [address] [id number] [place] [address]- 1074 Jan, [facility] [place] [facility] [address] [id number] [place] [address]- 6917 Jan, [facility] [place] [facility] [address] [id number] [place] [address]- 1877 Dec, [facility] [place] [facility] [address] [id number] [place] [address]- 7590 Dec, [facility] [place] [facility] [address] [id number] [place] [address]- 5226 Nov, [facility] [place] [facility] [address] [id number] [place] [address]- 0976 Nov, [facility] [place] [facility] [address] [id number] [place] [address]- 3462 Nov, [facility] [place] [facility] [address] [id number] [place] [address]- 2663 Nov, [facility] [place] [facility] [address] [id number] [place] [address]- 6289 Nov, [facility] [place] [facility] [address] [id number] [place] [address]- 1028 Nov, [facility] [place] [facility] [address] [id number] [place] [address]- 3341 Nov, [facility] [place] [facility] [address] [id number] [place] [address]- 9025 Nov, [facility] [place] [facility] [address] [id number] [place] [address]- 3351 Nov, [facility] [place] [facility] [address] [id number] [place] [address]- 6782 Oct, [facility] [place] [facility] [address] [id number] [place] [address]- 5518 Oct, [facility] [place] [facility] [address] [id number] [place] [address]- 7293 Oct, [facility] [place] [facility] [address] [id number] [place] [address]- 2942 Oct, [facility] [place] [facility] [address] [id number] [place] [address]- 2726 Oct, [facility] [place] [facility] [address] [id number] [place] [address]- 3294 Oct, [facility] [place] [facility] [address] [id number] [place] [address]- 2687 September, [facility] [place] [facility] [address] [id number] [place] [address]- 8099 September, [facility] [place] [facility] [address] [id number] [place] [address]- 8308 September, [facility] [address] [id number] [place] [address]- 7641 September, [facility] [address] [id number] [place] [address]- 2296 September, [facility] [address] [id number] [place] [address]- 4[address] September, [facility] [address] [id number] [place] [address] September, [facility] [address] [id number] [place] [address] September, [facility] [address] [id number] [place] [address] September, [facility] [address] [id number] [place] [address] September, [facility] [address] [id number] [place] [address] September, [facility] [address] [id number] [place] [address] September, [facility] [address] [id number] [place] [address] September, [facility] [address] [id number] [place] [address] September, [facility] [address] [id number] [place] [address] September, [facility] [address] [id number] [place] [address] September, [facility] [address] [id number] [place] [address] September, [facility] [address] [id number] [place] [address] 70[address] September, [facility] [place] [facility] [address] [id number] [place] [address] September, [facility] [place] [facility] [address] [id number] [place] [address] September, [facility] [place] [facility] [address] [id number] [place] [address]69 Aug, [facility] [place] [facility] [address] [id number] [place] [address]- [address]472 Aug, [facility] [place] [facility] [address] [id number] [place] [address] Aug, [facility] [place] [facility] [address] [id number] [place] [address] Aug, [facility] [place] [facility] [address] [id number] [place] [address]- [address] Aug, [facility] [place] [facility] [address] [id number] [place] [address]- [address]32 Aug, [facility] [place] [facility] [address] [id number] [place] [address]265 Aug, [facility] [place] [facility] [address] [id number] [place] [address]- [address]86 Aug, [facility] [place] [facility] [address] [id number] [place] [address]32 Aug, [facility] [place] [facility] [address] [id number] [place] [address]377 Aug, [facility] [place] [facility] [address] [id number] [place] [address]- [address]34 Aug, [facility] [place] [facility] [address] [id number] [place] [address] Aug, [facility] [place] [facility] [address] [id number] [place] [address]- [address]146 Aug, [facility] [place] [facility] [address] [id number] [place] [address]- [address] Aug, [facility] [place] [facility] [address] [id number] [place] [address] 9339 Aug, [facility] [place] [facility] [address] [id number] [place] [address] Jul, [facility] [place] [facility] [address] [id number] [place] [address] 31 Jul, 2013 [facility] [place] [facility] [address] [id number] [place] [address]- [address]68 27 Jul, 2013 [facility] [place] [facility] [address] [id number] [place] [address] 27 Jul, 2013 [facility] [place] [facility] [address] [id number] [place] [address] 68[address] Jul, [facility] [place] [facility] [address] [id number] [place] [address]- [address] Jul, [facility] [place] [facility] [address] [id number] [place] [address]- [address]64 18 Jul, 2013 [facility] [place] [facility] [address] [id number] [place] [address] 18 Jul, 2013 [facility] [place] [facility] [address] [id number] [place] [address]- [address] Jul, [facility] [place] [facility] [address] [id number] [place] [address] 06 Jul, 2013 [facility] [place] [facility] [address] [id number] [place] [address]- [address] Jul, [facility] [place] [facility] [address] [id number] [place] [address]- [address]666 04 Jul, 2013 [facility] [place] [facility] [address] [id number] [place] [address]- [address]37 Jul, [facility] [place] [facility] [address] [id number] [place] [address] Jul, [facility] [place] [facility] [address] [id number] [place] [address]- [address] Jul, [facility] [place] [facility] [address] [id number] [place] [address] 48[address] Jun, [facility] [place] [facility] [address] [id number] [place] [address]- [address] Jun, [facility] [place] [facility] [address] [id number] [place] [address]- [address] Jun, [facility] [place] [facility] [address] [id number] [place] [address]- 2668 Jun, [facility] [place] [facility] [address] [id number] [place] [address]- 83[address] Jun, [facility] [place] [facility] [address] [id number] [place] [address] Jun, [facility] [place] [facility] [address] [id number] [place] [address]- [address] May, [facility] [place] [facility] [address] [id number] [place] [address]- [address]18 May, [facility] [place] [facility] [address] [id number] [place] [address]- [address] May, [facility] [place] [facility] [address] [id number] [place] [address] May, [facility] [place] [facility] [address] [id number] [place] [address] May, [facility] [place] [facility] [address] [id number] [place] [address] 2337 May, [facility] [place] [facility] [address] [id number] [place] [address]- 0291 May, [facility] [place] [facility] [address] [id number] [place] [address]- 9520 May, [facility] [place] [facility] [address] [id number] [place] [address]- 4197 May, [facility] [address] [id number] [place] [address]- 1682 May, [facility] [place] [facility] [address] [id number] [place] [address]- 9913 May, [facility] [place] [facility] [address] [id number] [place] [address]- 2431 May, [facility] [place] [facility] [address] [id number] [place] [address]- 3213 May, [facility] [place] [facility] [address] [id number] [place] [address]- 2787 May, [facility] [place] [facility] [address] [id number] [place] [address]- 0161 May, [facility] [place] [facility] [address] [id number] [place] [address]- 3200 Apr, [facility] [place] [facility] [address] [id number] [place] [address]- 4644 Apr, [facility] [place] [facility] [address] [id number] [place] [address]- 1325 Apr, [facility] [place] [facility] [address] [id number] [place] [address]- 6792 Apr, [facility] [place] [facility] [address] [id number] [place] [address]- 7713 Apr, [facility] [place] [facility] [address] [id number] [place] [address]- 3078 Apr, [facility] [place] [facility] [address] [id number] [place] [address]- 3936 Apr, [facility] [place] [facility] [address] [id number] [place] [address]- 2004 Apr, [facility] [place] [facility] [address] [id number] [place] [address]- 4238 Apr, [facility] [place] [facility] [address] [id number] [place] [address]- 5934 Apr, [facility] [address] [id number] [place] [address]- 9165 Mar, [facility] [address] [id number] [place] [address]- 3585 Mar, [facility] [address] [id number] [place] [address]- 6154 Mar, [facility] [address] [id number] [place] [address]- 7115 Mar, [facility] [address] [id number] [place] [address]- 9749 Mar, [facility] [address] [id number] [place] [address]- 9205 Mar, [facility] [address] [id number] [place] [address]- 9731 Mar, [facility] [address] [id number] [place] [address]- 1839 Mar, [facility] [address] [id number] [place] [address]- 5974 Mar, [facility] [address] [id number] [place] [address]- 2846 Mar, [facility] [address] [id number] [place] [address]- 9250 Mar, [facility] [address] [id number], [place] [address] 1403 Mar, [facility] [place] [facility] [address] [id number] [place] [address]- 8219 Mar, [facility] [address] [id number] [place] [address]- 6195 Mar, [facility] [address] [id number] [place] [address]- 8548 Mar, [facility] [place] [facility] [address] [id number] [place] [address]- 7283 18 Mar, 2013 [facility] [place] [facility] [address] [id number] [place] [address]- 8716 Mar, [facility] [place] [facility] [address] [id number] [place] [address]- 7918 Mar, [facility] [place] [facility] [address] [id number] [place] [address]- 8522 Mar, [facility] [place] [facility] [address] [id number] [place] [address]- 7276 Mar, [facility] [place] [facility] [address] [id number] [place] [address]- 7231 Mar, [facility] [place] [facility] [address] [id number] [place] [address]- 4874 Mar, [facility] [place] [facility] [address] [id number] [place] [address]- 2426 Mar, [facility] [place] [facility] [address] [id number] [place] [address]- 4579 Feb, [facility] [place] [facility] [address] [id number], [place] [address]- 5391 Feb, [facility] [place] [facility] [address] [id number], [place] [address]- 8895 Feb, [facility] [place] [facility] [address] [id number], [place] [address]- 0623 16 Feb, 2013 [facility] [place] [facility] [address] [id number] [place] [address]- 4834 15 Feb, 2013 [facility] [place] [facility] [address] [id number], [place] [address]- 7462 Feb, [facility] [place] [facility] [address] [id number] [address] Feb, [facility] [place] [facility] [address] [id number] [place] [address]- 2682 07 Feb, 2013 [facility] [address] [id number] [place] [address]- 9163 04 Feb, 2013 [facility] [place] [facility] [address] [id number] [place] [address]- 5959 03 Feb, 2013 [facility] [place] [facility] [address] [id number] [place] [address]- 2646 30 Jan, 2013 [facility] [place] [facility] [address] [id number] [place] [address]- 7662 26 Jan, 2013 [facility] [place] [facility] [address] [id number] [place] [address]- 7017 24 Jan, 2013 [facility] [place] [facility] [address] [id number] [place] [address]- 2163 23 Jan, 2013 [facility] [address] [id number] [place] [address]- 7472 17 Jan, 2013 [facility] [place] [facility] [address] [id number] [place] [address]- 2339 Dec, [facility] [place] [facility] [address] [id number] [place] [address]- 8524 Dec, [facility] [place] [facility] [address] [id number] [place] [address]- 6571 16 Dec, 2012 [facility] [place] [facility] [address] [id number] [place] [address]- 7080 15 Dec, 2012 [facility] [place] [facility] [address] [id number] [place] [address]- 7353 14 Dec, 2012 [facility] [place] [facility] [address] [id number] [place] [address]- 8523 Dec, [facility] [place] [facility] [address] [id number] [place] [address]- 2702 Dec, [facility] [place] [facility] [address] [id number] [place] [address]- 2681 Nov, [facility] [place] [facility] [address] [id number] [place] [address]- 2540 16 Nov, 2012 [facility] [address] [id number] [place] [address]- 4179 15 Nov, 2012 [facility] [place] [facility] [address] [id number] [place] [address]- 2546 05 Nov, 2012 [facility] [place] [facility] [address] [id number] [place] [address]- 3110 Nov, [facility] [place] [facility] [address] [id number] [place] [address]- 2470 Oct, [facility] [place] [facility] [address] [id number] [place] [address]- 8834 Oct, [facility] [address] [id number] [place] [address]- 0056 Oct, [facility] [address] [id number] [place] [address]- 1497 September, [facility] [address] [id number] [place] [address]- 8075 September, [facility] [address] [id number] [place] [address]- 2831 September, [facility] [address] [id number] [place] [address]- 2920 September, [facility] [address] [id number] [place] [address]- 6986 September, [facility] [place] [facility] [address] [id number] [place] [address]- 5868 September, [facility] [place] [facility] [address] [id number] [place] [address]- 0636 September, [facility] [place] [facility] [address] [id number] [place] [address]- 1936 Aug, [facility] [place] [facility] [address] [id number] [place] [address]- 4189 23 Aug, 2012 [facility] [address] [id number] [place] [address]- 4578 11 Aug, 2012 [facility] [place] [facility] [address] [id number] [place] [address]- 5089 29 Jul, 2012 [facility] [address] [facility] [id number] [place] [address]- 0778 27 Jul, 2012 [facility] [place] [facility] [address] [facility] [id number] [place] [address]- 7046 26 Jul, 2012 [facility] [address] [facility] [id number] [place] [address]- 1187 20 Jul, 2012 [facility] [place] [facility] [address] [facility] [id number] [place] [address]- 7254 18 Jul, 2012 [facility] [address] [facility] [id number] [place] [address]- 9478 18 Jul, 2012 [facility] [place] [facility] [address] [facility] [id number], [place] [address]- 0899 13 Jul, 2012 [facility] [place] [facility] [address] [facility] [id number] [place] [address]- 2430 28 Jun, 2012 [facility] [place] [facility] [address] [facility] [id number] [place] [address]- 7300 27 Jun, 2012 [facility] [place] [facility] [address] [facility] [id number], [place] [address]- 7125 22 Jun, 2012 [facility] [place] [facility] [address] [facility] [id number], [place] [address]- 2513 20 Jun, 2012 [facility] [place] [facility] [address] [facility] [id number] [place] [address]- 6599 15 Jun, 2012 [facility] [place] [facility] [address] [facility] [id number], [place] [address]- 8852 15 Jun, 2012 [facility] [place] [facility] [address] [facility] [id number] [place] [address]- 0054 13 Jun, 2012 [facility] [place] [facility] [address] [id number] [place] [address]- 1325 Jun, [facility] [address] [id number] [place] [address]- 0846 Jun, [facility] [place] [facility] [address] [id number] [place] [address]- 2546 Jun, [facility] [place] [facility] [address] [id number] [place] [address]- 9323 May, [facility] [place] [facility] [address] [id number] [place] [address]- 1750 May, [facility] [place] [facility] [address] [id number] [place] [address]- 7286 May, [facility] [address] [id number] [place] [address]- 5263 May, [facility] [address] [id number] [place] [address]- 6163 May, [facility] [address] [id number] [place] [address]- 7682 May, [facility] [address] [id number] [place] [address]- 4668 Apr, [facility] [address] [id number] [place] [address]- 3283 31 Apr, 2012 [facility] [place] [facility] [address] [id number] [place] [address]- 8702 Apr, [facility] [place] [facility] [address] [id number] [place] [address]- 7288 28 Apr, 2012 [facility] [place] [facility] [address] [id number] [place] [address]- 8198 26 Apr, 2012 [facility] [place] [facility] [address] [id number] [place] [address]- 3174 20 Apr, 2012 [facility] [place] [facility] [address] [id number], [place] [address]- 0511 Apr, [facility] [place] [facility] [address] [id number] [place] [address]- 1245 Mar, [facility] [place] [facility] [address] [id number] [place] [address]- 9559 29 Mar, 2012 [facility] [place] [facility] [address] [facility] [id number] [place] [address]- 5946 Mar, [facility] [place] [facility] [address] [id number], [place] [address]- 8651 Mar, [facility] [place] [facility] [address] [id number] [place] [address]- 6496 Mar, [facility] [place] [facility] [address] [id number] [place] [address]- 8924 Mar, [facility] [place] [facility] [address] [id number] [place] [address]- 2143 Mar, [facility] [place] [facility] [address] [id number], [place] [address]- 1827 Mar, [facility] [place] [facility] [address] [id number] [place] [address]- 3948 Mar, [facility] [place] [facility] [address] [id number] [place] [address]- 4227 Mar, [facility] [place] [facility] [address] [id number], [place] [address]- 8082 Mar, [facility] [place] [facility] [address] [id number], [place] [address]- 3481 Mar, [facility] [place] [facility] [address] [id number] [place] [address]- 0864 Mar, [facility] [place] [facility] [address] [facility] [id number], [place] [address]- 4363 Mar, [facility] [place] [facility] [address] [facility] [id number], [place] [address]- 9941 Mar, [facility] [place] [facility] [address] [id number] [place] [address] 254 Mar, [facility] [place] [facility] [address] [id number] [place] [address]- 6112 Mar, [facility] [place] [facility] [address] [id number] [place] [address]- 3949 Feb, [facility] [place] [facility] [address] [id number] [place] [address]- 8801 Feb, [facility] [place] [facility] [address] [id number] [place] [address]- 6076 Feb, [facility] [place] [facility] [address] [id number] [place] [address]- 0399 Feb, [facility] [place] [facility] [address] [id number] [place] [address]- 5198 Feb, [facility] [place] [facility] [address] [id number] [place] [address]- 4526 Feb, [facility] [place] [facility] [address] [id number] [place] 5740 Feb, [facility] [place] [facility] [address] [facility] [id number] [place] [address]- 2657 Feb, [facility] [place] [facility] [address] [facility] [id number] [place] 1121 Feb, [facility] [place] [facility] [address] [id number] [place] [address]- 4483 Feb, [facility] [place] [facility] [address] [id number] [place] [address]- 1897 Feb, [facility] [place] [facility] [address] [id number] [place] [address]- 1675 27 Jan, 2012 [facility] [place] [facility] [address] [id number] [place] [address]- 1496 Jan, [facility] [place] [facility] [address] [id number] [place] [address]- 1877 13 Jan, 2012 [facility] [place] [facility] [address] [id number] [place] [address]- 1937 12 Jan, 2012 [facility] [place] [facility] [address] [id number] [place] [address]- 1342 Jan, [facility] [place] [facility] [address] [id number] [place] [address]- 2602 Dec, [facility] [place] [facility] [address] [id number] [place] [address]- 7385 Dec, [facility] [place] [facility] [address] [id number] [place] [address]- 5966 Dec, [facility] [place] [facility] [address] [id number] [place] [address]- 9056 Dec, [facility] [place] [facility] [address] [id number] [place] [address]- 0946 Dec, [facility] [place] [facility] [address] [id number] [place] [address]- 5781 Dec, [facility] [place] [facility] [address] [id number] [place] [address]- 1618 Dec, [facility] [place] [facility] [address] [id number] [place] [address]- 3134 Dec, [facility] [place] [facility] [address] [id number] [place] [address]- 9052 Nov, [facility] [place] [facility] [address] [id number] [place] [address]- 4401 Nov, [facility] [place] [facility] [address] [id number] [place] [address]- 4446 Nov, [facility] [place] [facility] [address] [id number] [place] [address]- 2718 Nov, [facility] [place] [facility] [address] [id number] [place] [address]- 8884 Nov, [facility] [place] [facility] [address] [id number] [place] [address]- 9690 Oct, [facility] [address] [id number] [place] [address]- 1157 Oct, [facility] [place] [facility] [address] [id number] [place] [address]- 2603 September, [facility] [address] [id number] [place] [address]- 5736 September, [facility] [address] [id number] [place] [address]- 4936 September, [facility] [address] [id number] [place] [address]- 7101 September, [facility] [address] [id number] [place] 9052 September, [facility] [address] [id number] [place] [address]- 3875 September, [facility] [address] [id number] [place] [address]- 8624 September, [facility] [address] [id number] [place] [address]- 6590 September, [facility] [address] [id number] [place] [address]- 5341 September, [facility] [address] [id number] [place] [address]- 3999 September, [facility] [place] [facility] [address] [id number] [place] [address]- 4586 September, [facility] [place] [facility] [address] [id number] [place] [address]- 3046 September, [facility] [place] [facility] [address] [id number] [place] [address]- 0666 September, [facility] [place] [facility] [address] [id number] [place] [address]- 7262 September, [facility] [place] [facility] [address] [id number] [place] [address]- 8224 24 Aug, 2011 [facility] [address] [id number] [place] [address]- 6113 20 Aug, 2011 [facility] [place] [facility] [address] [id number] [place] [address]- 6743 13 Aug, 2011 [facility] [address] [id number] [place] [address]- 1150 11 Aug, 2011 [facility] [place] [facility] [address] [id number] [place] [address]- 6273 23 Jul, 2011 [facility] [place] [facility] [address] [id number] [place] [address]- 2286 13 Jul, 2011 [facility] [place] [facility] [address] [facility] [id number] [place] [address]- 2893 13 Jul, 2011 [facility] [address] [id number] [place] [address]- 9742 28 Jun, [address] [facility] [address] [id number] [id number] 26 Jun, 2011 [facility] [address] [id number] [place] [address]- 8136 13 Jun, 2011 [facility] [address] [id number] [place] [address]- 9711 10 Jun, 2011 [facility] [place] [facility] [address] [id number] [place] [address] 07 Jun, 2011 [facility] [place] [facility] [address] [id number] [place] [address] 07 Jun, 2011 [facility] [place] [facility] [address] [id number] [place] [address] 03 Jun, 2011 [facility] [place] [facility] [address] [id number] [place] [address] 02 Jun, 2011 [facility] [place] [facility] [address] [id number] [place] [address] 31 May, 2011 [facility] [address] [id number] [place] [address] 30 May, 2011 [facility] [place] [facility] [address] [id number] [place] [address] May, [facility] [place] [facility] [address] [id number] [place] [address] May, [facility] [place] [facility] [address] [id number] [place] [address] May, [facility] [place] [facility] [address] [id number] [place] [address] May, [facility] [place] [facility] [address] [id number] [place] [address] May, [facility] [place] [facility] [address] [id number] [place] [address] May, [facility] [place] [facility] [address] [id number] [place] [address] May, [facility] [place] [facility] [address] [id number] [place] [address] May, [facility] [place] [facility] [address] [id number] [place] [address] May, [facility] [place] [facility] [address] [id number] [place] [address] May, [facility] [place] [facility] [address] [id number] [place] [address] May, [facility] [place] [facility] [address] [id number] [place] [address] May, [facility] [place] [facility] [address] [id number] [place] [address] Apr, [facility] [place] [facility] [address] [id number] [place] [address] 14[address] Apr, [facility] [place] [facility] [address] [id number] [place] [address] 05 Apr, 2011 [facility] [address] [id number] [place] [address] 2426 17 Mar, 2011 [facility] [place] [facility] [address] [id number] [place] [address] 2546 Mar, [facility] [address] [id number] [place] [address] 31 Feb, 2011 [facility] [place] [facility] [address] [id number] [place] [address] 2546 26 Feb, 2011 [facility] [address] [id number] [place] [address]- 14[address] Feb, [facility] [address] [id number] [place] [address] 78[address] 20 Feb, 2011 [facility] [address] [id number] [place] [address] 13 Feb, 2011 [facility] [address] [id number] [place] [address] 28 Apr, 2010 [facility] [place] [facility] [address] [id number] [place] [address] 2546 22 Apr, 2010 [facility] [address] [id number] [place] [address] 2544 16 Apr, 2010 [facility] [place] [facility] [address] [id number] [place] [address] 2546 15 Apr, 2010 [facility] [place] [facility] [address] [id number] [place] [address] 2546 15 Apr, 2010 [facility] [place] [facility] [address] [id number] [place] [address] 25[address] Apr, [facility] [place] [facility] [address] [id number] [place] [address] 24 Mar, 2010 [facility] [place] [facility] [address] [id number] [place] [address] 2545 17 Mar, 2010 [facility] [place] [address] [id number] [address] 17 Mar, 2010 [facility] [place] [address] [facility] [id number], [place] [address] Feb, [facility] [place] [address] [facility] [id number], [place] [address] Feb, [facility] [place] [address] [facility] [id number], [place] [address] Feb, [facility] [place] [address] [facility] [id number], [place] [address] Feb, [facility] [place] [address] [facility] [id number], [place] [address] Dec, [facility] [place] [id number], [place] [address] Dec, [facility] [place] [id number], [place] [address] Oct, [facility] [place] [id number], [place] [address] Mar, [facility] [place] [address] [id number], [place] [address] Mar, [facility] [place] [address] [id number], [place] [address] September, IMMUNIZATIONS No Known Immunizations SOCIAL HISTORY Never Assessed REASON FOR VISIT Controlled Med Refill 10/18/17 PLAN OF CARE VITAL SIGNS MEDICATIONS Medication [...]
--- OUTSIDE RECORDS SUMMARY | 2018-01-08 15:20 | XMS REPORT ---
Author Author VALERIE ZAVALA [facility] Address [address] [place] [address] Care Team Providers Care Stonecutter Name Role Phone VALERIE ZAVALA Unavailable PROBLEMS Type Condition ICD9-CM Code BCT80-ZE Code Onset Dates Condition Status SNOMED Code Problem Generalized anxiety disorder F41.1 Active 76231528 Problem Hypokalemia E87.6 Active 285538522 Problem Right low back pain, with sciatica presence unspecified M54.5 Active 069788682 Problem Post-traumatic stress disorder, chronic F43.12 Active 13980222 Problem Pain in right knee M25.561 Active 42795109 Problem Gastroesophageal reflux disease without esophagitis K21.9 Active 595280007 Problem UTI symptoms R39.9 Active 73905635 Problem Essential hypertension I10 Active 53003328 Problem Anxiety F41.9 Active 78736694 Problem Neuropathy G62.9 Active 731210438 Problem Other chronic pain G89.29 Active 89657737 Problem Generalized abdominal pain R10.84 Active 053630305 Problem Chronic pain G89.29 Active 78859822 Problem Back pain M54.9 Active 426389330 Problem Right foot pain M79.671 Active 07982182 Problem Panic attacks F41.0 Active 069991571 Problem Other emphysema J43.8 Active 25582562 Problem Kidney stones N20.0 Active 77107725 Problem Renal calculus, right N20.0 Active 45287790 Problem Weight decrease R63.4 Active 023692199 Problem Tobacco abuse Z72.0 Active 48394226 Problem Bone pain M89.8X9 Active 70475688 Problem Depression, unspecified depression type F32.9 Active 29960749 Problem Insomnia, unspecified type G47.00 Active 619160419 Problem Pulmonary emphysema, unspecified emphysema type J43.9 Active 93004618 Problem Right upper quadrant abdominal pain R10.11 Active 074001176 Problem Weight loss R63.4 Active 321461400 ALLERGIES No Information ENCOUNTERS Encounter Location Date Diagnosis [facility] [id number] [address] Dec, [facility] [id number] [place] [address] 58002- 8054 Dec, [facility] [id number] [place] [address] 62501- 8262 Dec, [facility] [id number] [place] [address] 31208- 2956 Dec, Medicare welcome exam Z00.00 [facility] [id number] [place] [address] 85070- 7809 Nov, [facility] [id number] [place] [address] 23025- 4243 Nov, Pelvic pain R10.2 ; Acute pyelonephritis N10 and Essential hypertension I10 [facility] [id number] [place] [address] 51967- 3384 Oct, Medicare welcome exam Z00.00 [facility] [id number] [place] [address] 01849- 5599 Oct, Gross hematuria R31.0 ; Urinary tract infection without hematuria, site unspecified N39.0 and Weakness R53.1 [facility] [id number], [place] [address] 3021 Oct, [facility] [id number] [place] [address] 21763- 0603 Oct, [facility] [id number] [place] [address] 20098- 7475 Oct, Medicare welcome exam Z00.00 [facility] [id number] [place] [address] 98483- 4573 September, Back pain M54.9 and Right anterior knee pain M25.561 [facility] [id number] [place] [address] 13128- 6641 September, [facility] [id number], [place] [address] 8692 September, [facility] [id number] [place] [address] 91904- 1444 September, Essential hypertension I10 [facility] [id number] [place] [address] 35104- 2935 September, [facility] [id number] [place] [address] 42446- 9880 September, RLQ abdominal pain R10.31 ; Low back pain M54.5 and Other chronic pain G89.29 [facility] [id number] [place] [address] 91066- 5683 Aug, Medicare welcome exam Z00.00 [facility] [id number] [place] [address] 48588- 9201 Aug, [facility] [id number] [place] [address] 00231- 1834 Aug, Acute pyelonephritis N10 and Medicare welcome exam Z00.00 [facility] [id number] [place] [address] 00834 -5733 Aug, Dysuria R30.0 and Acute pyelonephritis N10 [facility] [id number], [place] [address] 8809 Aug, [facility] [id number] [address] 2764 Aug, [facility] [id number] [place] [address] 87831- 7398 Aug, [facility] [id number], [place] [address] 4077 Aug, [facility] [id number], [place] [address]- 0152 Jul, [facility] [id number] [place] [address] 30473- 9587 Jul, Renal calculus, right N20.0 and Medicare welcome exam Z00.00 [facility] [id number] [place] [address] 40674 -4197 Jul, Dysuria R30.0 and Renal calculus, right N20.0 [facility] [id number] [place] [address] 13924- 1084 Jul, Medicare welcome exam Z00.00 [facility] [id number] [place] [address] 90684- 8602 Jun, Gastroesophageal reflux disease without esophagitis K21.9 and Generalized abdominal pain R10.84 [facility] [id number] [place] [address] 34958- 7344 Jun, Medicare welcome exam Z00.00 [facility] [id number] [place] [address] 33742- 0294 Jun, [facility] [id number] [place] [address] 85327- 9313 Jun, Medicare welcome exam Z00.00 and Encounter for screening mammogram for malignant neoplasm of breast Z12.31 [facility] [id number] [place] [address] 35015- 5651 Jun, Chronic pain G89.29 [facility] [id number] [place] [address] 66590- 4876 May, [facility] [id number] [place] [address] 56278- 6115 May, Pelvic pain R10.2 [facility] [id number] [place] [address] 45050- 4601 May, Pelvic pain R10.2 [facility] [id number] [place] [address] 45238 -9221 May, Renal calculus, right N20.0 [facility] [id number] [place] [address] 01446- 2217 May, Hematuria, unspecified type R31.9 and Nephrolithiasis N20.0 [facility] [id number] [place] [address] 43439 -2345 May, Dysuria R30.0 and Nephrolithiasis N20.0 [facility] [id number] [place] [address] 55774- 6017 May, [facility] [id number] [place] [address] 22506 -9825 May, Abdominal pain R10.9 and Kidney stone N20.0 [facility] [id number] [place] [address] 53749- 2729 May, [facility] [id number] [place] [address] 63559- 8622 May, Chronic pain G89.29 and Panic attacks F41.0 [facility] [id number] [place] [address] 82976- 1913 May, Urinary tract infection without hematuria, site unspecified N39.0 [facility] [id number] [place] [address] 81984- 2338 Apr, Right lower quadrant abdominal pain R10.31 and Abnormal serum lipase level R74.8 [facility] [id number] [place] [address] 09661- 3909 Apr, Recurrent urinary tract infection N39.0 [facility] [id number] [place] [address] 59813- 8764 Apr, UTI symptoms R39.9 ; Recurrent urinary tract infection N39.0 and Pelvic pain R10.2 [facility] [id number] [place] [address] 68056- 1320 Apr, Chronic pain G89.29 and Panic attacks F41.0 [facility] [id number] [place] [address] 85368- 1988 Apr, Dysuria R30.0 [facility] [address] 97940- 5098 Apr, [facility] [address] 67150- 2911 Apr, Dysuria R30.0 and Urinary tract infection without hematuria , site unspecified N39.0 [facility] [address] 19323- 6835 Mar, UTI symptoms R39.9 [facility] [address] 56032- 6456 Mar, [facility] [address] 03291- 3703 Mar, Panic attacks F41.0 and Chronic pain G89.29 [facility] [address] 28023- 2698 Mar, [facility] [id number] [place] [address] 30325- 7547 Mar, Dysuria R30.0 [facility] [address] 88156- 5172 Mar, Dysuria R30.0 [facility] [id number] [place] [address] 97004- 4324 Feb, Chronic pain G89.29 ; Shortness of breath R06.02 ; Weight loss R63.4 ; Encounter for immunization Z23 ; Bone pain M89.8X9 ; Right anterior knee pain M25.561 and Cough R05 [facility] [address] 15530- 1330 Feb, Shortness of breath R06.02 [facility] [address] 98341- 9867 Feb, [facility] [address] 72834- 3155 Feb, Panic attacks F41.0 and Chronic pain G89.29 [facility] [address] 70723- 9787 Feb, [facility] [address] 79438- 0559 Feb, Panic attacks F41.0 ; Shortness of breath R06.02 and Encounter for immunization Z23 [facility] [address] 35676- 7956 Jan, [facility] [address] 61390- 0114 Jan, Anxiety F41.9 and Chronic pain G89.29 [facility] [address] 14958- 2622 Dec, Anxiety F41.9 and Chronic pain G89.29 [facility] [address] 49809- 3268 Nov, Chronic pain G89.29 [facility] [address] 51042- 7024 Nov, Anxiety F41.9 [facility] [address] 60777- 8199 Nov, Chronic pain G89.29 ; Essential hypertension I10 and Other emphysema J43.8 [facility] [address] 04387- 7641 Oct, Anxiety F41.9 [facility] [address] 01775- 7259 Oct, [facility] [address] 05750- 6835 Oct, Chronic pain G89.29 [facility] [address] 17580- 0554 September, Recurrent UTI N39.0 ; Neuropathy G62.9 and Anxiety F41.9 [facility] [id number] [place] [address] 75490- 1011 September, [facility] [id number] [place] [address] 98954- 6162 September, Chronic pain G89.29 [facility] [id number] [place] [address] 70503- 8901 September, [facility] [id number] [place] [address] 02549- 4219 Aug, Post-traumatic stress disorder, chronic F43.12 ; Chronic urinary tract infection N39.0 ; Gastroesophageal reflux disease without esophagitis K21.9 ; Chronic pain G89.29 ; Essential hypertension I10 and Tobacco abuse Z72.0 [facility] [id number] [place] [address] 54038 -8439 Aug, [facility] [id number] [place] [address] 01219- 6081 Aug, Chronic pain G89.29 [facility] [id number] [place] [address] 53108- 7272 Aug, Insomnia, unspecified type G47.00 [facility] [id number] [place] [address] 75706- 1830 Aug, [facility] [id number] [place] [address] 17090- 2854 Jul, Chronic pain G89.29 [facility] [id number] [place] [address] 04797- 0812 Jul, [facility] [id number] [place] [address] 49561- 6842 Jul, [facility] [id number] [place] [address] 53075- 0298 Jul, [facility] [id number] [place] [address] 95360- 4992 15 Jul, 2016 Recurrent UTI (urinary tract infection) N39.0 [facility] [id number] [place] [address] 59807- 6052 14 Jul, 2016 [facility] [id number] [place] [address] 63843- 3650 27 Jun, 2016 Chronic pain G89.29 [facility] [id number] [place] [address] 77448- 0929 17 Jun, 2016 [facility] [id number] [place] [address] 13090- 9035 Jun, [facility] [id number] [place] [address] 82432- 9216 May, Chronic pain G89.29 [facility] [id number] [place] [address] 54649- 9742 May, Weight loss R63.4 and Shortness of breath R06.02 [facility] [id number] [place] [address] 18064- 6170 May, Chronic pain G89.29 ; Weight loss R63.4 and Tobacco abuse Z72.0 [facility] [id number], [place] [address]- 5158 May, [facility] [id number] [place] [address] 11580- 7086 May, Hypoxia R09.02 [facility] [id number], [place] [address]- 6359 May, [facility] [id number] [place] [address] 46701- 6636 May, Pulmonary emphysema, unspecified emphysema type J43.9 [facility] [id number], [place] [address] -9127 May, [facility] [id number] [place] [address] 36236- 5575 May, [facility] [id number] [place] [address] 32656- 0008 May, [facility] [id number] [place] [address] 13547- 9115 May, Chronic pain G89.29 ; Encounter for immunization Z23 ; Right anterior knee pain M25.561 and Cough R05 [facility] [address] 36133- 2012 Apr, Chronic pain G89.29 [facility] [address] 24953- 8145 Apr, [facility] [address] 70084- 5018 Apr, Generalized anxiety disorder F41.1 and Depression, unspecified depression type F32.9 [facility] [id number] [place] [address] 47459- 6735 Apr, Chronic pain G89.29 ; Hypokalemia E87.6 and Insomnia, unspecified type G47.00 [facility] [id number] [place] [address] 51712- 3282 Apr, [facility] [id number] [place] [address] 94213- 4109 Apr, Chronic pain G89.29 [facility] [id number] [place] [address] 14508- 0368 Apr, [facility] [id number] [place] [address] 38348- 2238 Mar, [facility] [id number] [place] [address] 88934- 0726 Mar, Insomnia, unspecified type G47.00 [facility] [id number] [place] [address] 68091- 7354 Mar, Chronic pain G89.29 [facility] [address] [place] [address]- 5094 Mar, [facility] [id number] [address]- 2264 Feb, [facility] [id number], [place] [address]- 8177 Feb, [facility] [id number], [place] [address]- 5983 Feb, [facility] [id number] [address]- 9053 Feb, [facility] [id number] [place] [address] 54912- 5517 Feb, [facility] [id number], [place] [address]- 8914 29 Jan, 2015 [facility] [id number] [place] [address] 06662- 9136 26 Jan, 2015 [facility] [id number], [place] [address]- 7709 20 Jan, 2015 [facility] [id number], [place] [address]- 6936 13 Jan, 2015 [facility] [id number] [address]- 9269 12 Jan, 2015 [facility] [id number], [place] [address]- 6457 07 Jan, 2015 Chronic pain G89.29 [facility] [id number], [place] [address]- 0888 Jan, 2016 Chronic pain G89.29 and Fibromyalgia M79.7 [facility] [id number], [place] [address]- 9387 Dec, Depression, unspecified depression type F32.9 and Generalized anxiety disorder 300.02 [facility] [id number], [place] [address]- 1587 Dec, Dysthymia F34.1 ; Insomnia, unspecified type G47.00 and Chronic pain G89.29 [facility] [id number] [place] [address] 90862- 4091 Dec, Chronic pain G89.29 [facility] [id number] [place] [address] 12830- 8899 Dec, Insomnia, unspecified type G47.00 [facility] [id number] [place] [address] 66618- 9286 Dec, Fibromyalgia M79.7 and Chronic pain G89.29 [facility] [id number] [place] [address] 60353- 3585 Dec, [facility] [id number] [place] [address] 20841- 1051 Dec, [facility] [id number] [place] [address] 59673- 8021 Dec, [facility] [id number] [place] [address] 43190 2542 Dec, [facility] [id number] [place] [address] 07440- 2087 Dec, Chronic pain G89.29 [facility] [id number] [place] [address] 05950- 5203 Dec, [facility] [id number] [place] [address] 39913 2545 Dec, [facility] [id number] [place] [address] 31921 2543 Dec, [facility] [id number] [place] [address] 79172- 8186 Dec, Chronic pain G89.29 and Dysthymia F34.1 [facility] [id number] [place] [address] 26671- 9013 Nov, [facility] [address] [place] [address]- 1714 Nov, Hypokalemia E87.6 and Chronic pain G89.29 [facility] [address] 08121- 8525 Nov, Back pain M54.9 and Pain in right knee M25.561 [facility] [address] 52448- 4420 Nov, [facility] [address] 33561- 4262 Nov, Chronic pain G89.29 [facility] [address] 75224- 0594 Nov, Chronic pain G89.29 ; Weight loss R63.4 ; Bone pain M89.8X9 and Insomnia, unspecified type G47.00 [facility] [address] 71867- 3913 Nov, Chronic pain G89.29 [facility] [id number] [place] [address] 39786- 9588 Nov, Chronic pain G89.29 [facility] [id number] [place] [address] 48984- 7354 Oct, Chronic pain G89.29 [facility] [id number] [place] [address] 97595- 9915 Oct, UTI symptoms R39.9 [facility] [id number] [place] [address] 05375- 8898 Oct, Chronic pain G89.29 [facility] [address] 36396- 7624 20 Oct, 2015 Chronic pain G89.29 [facility] [id number] [place] [address] 71052- 7528 13 Oct, 2015 Chronic pain G89.29 [facility] [id number] [place] [address] 33949- 1463 Oct, Right upper quadrant abdominal pain R10.11 [facility] [address], [place] [address]- 6367 Oct, Chronic pain G89.29 [facility] [id number] [place] [address]- 2265 Oct, [facility] [id number] [place] [address] 60658- 3543 September, Chronic pain G89.29 [facility] [id number] [place] [address] 21963- 2348 September, Dysuria R30.0 and Urinary tract infection without hematuria , site unspecified N39.0 [facility] [id number], [place] [address]- 0399 September, [facility] [id number] [place] [address] 61098- 5752 September, Dysuria R30.0 [facility] [id number] [place] [address] 73808- 6369 September, Chronic pain G89.29 [facility] [id number] [place] [address] 20335- 5048 September, Chronic pain G89.29 and Essential hypertension I10 [facility] [id number] [address] September, [facility] [id number] [address] September, [facility] [id number] [place] [address] 36423- 4232 September, [facility] [id number] [place] [address] 28627- 5165 Aug, UTI symptoms R39.9 [facility] [id number] [address] Aug, Dysuria R30.0 [facility] [id number] [address] Aug, [facility] [id number] [place] [address] [id number]- [phone] Aug, [facility] [id number] [place] [address] 90997- 5830 Aug, [facility] [id number] [place] [address] 98906- 3627 Aug, Chronic pain G89.29 [facility] [id number] [place] [address] 58725- 4213 Aug, Dysthymia F34.1 [facility] [id number] [place] [address] 69104- 7188 Aug, Conjunctivitis, unspecified conjunctivitis type, unspecified laterality H10.9 [facility] [id number] [place] [address] 87183- 0198 Jul, Chronic pain G89.29 ; Back pain M54.9 ; Tobacco abuse Z72.0 and Weight decrease R63.4 [facility] [id number] [place] [address] 86335- 0568 Jul, [facility] [id number] [place] [address] 80930- 1731 Jul, [facility] [id number] [place], [place] [address] 12733- 8707 24 Jul, 2015 Chronic pain G89.29 [facility] [id number] [place] [address] 48390- 2241 Jul, [facility] [id number] [place] [address] 87914- 8640 Jul, [facility] [id number] [place] [address] 43406- 4982 Jul, [facility] [id number] [place] [address] 46247- 1108 17 Jul, 2015 [facility] [id number] [place] [address] 59039- 8501 17 Jul, 2015 Chronic pain G89.29 [facility] [id number] [place] [address] 53574- 0609 16 Jul, 2015 Chronic pain G89.29 [facility] [id number] [place] [address] 79791- 4614 15 Jul, 2015 [facility] [id number] [place] [address] 46215- 4559 Jul, [facility] [id number] [place] [address] 68847- 5778 Jul, [facility] [id number] [place] [address] 61160- 3706 Jul, [facility] [id number] [place] [address] 75148- 5416 Jun, [facility] [id number] [place] [address] 64773- 5893 Jun, Depression, unspecified depression type F32.9 [facility] [id number] [place] [address] 21450- 7195 Jun, Pain in right knee M25.561 [facility] [id number] [place] [address] 44354- 9400 24 Jun, 2015 Chronic pain G89.29 ; Back pain M54.9 ; Bone pain M89.8X9 and Weight loss R63.4 [facility] [id number] [place] [address] 14881- 7000 Jun, [facility] [id number] [place] [address] 98961- 4133 May, [facility] [address] [address] 9339 May, UTI symptoms R39.9 ; Pain in right knee M25.561 ; Right low back pain, with sciatica presence unspecified M54.5 ; Right foot pain M79.671 ; Hypokalemia E87.6 and Screening, lipid Z13.220 [facility] [id number] [place] [address] 89583- 4211 May, [facility] [address] 88885- 2422 May, [facility] [address] 21175- 1326 Mar, [facility] [address] 51892- 2686 Mar, [facility] [address] 40534- 2551 Mar, Hypokalemia E87.6 [facility] [address] 60159- 0750 Mar, Pain in right leg M79.604 ; Encounter for immunization Z23 ; Pain in right knee M25.561 and Hypokalemia E87.6 [facility] [id number] [place] [address] 41202- 0015 Jan, [facility] [id number] [place] [address] 99838- 2600 Jan, [facility] [id number] [place] [address] 83301 2541 Jan, Abdominal pain, generalized 789.07 [facility] [id number] [place] [address] 32952- 9058 Jan, Abdominal pain, generalized 789.07 [facility] [id number] [place] [address] 20622- 0209 Dec, [facility] [id number] [place] [address] 65288- 6174 Dec, [facility] [address] [address]- 1083 Dec, [facility] [address] [address] 9744 Nov, Hallux valgus 735.0 and Hammertoe 735.4 [facility] [address] [address]- 2436 Nov, [facility] [id number] [place] [address] 02015- 4984 Nov, Hallux valgus 735.0 and Hammer toe 735.4 [facility] [id number] [place] [address] 30374- 6566 Oct, [facility] [address] [address]- 2789 Oct, [facility] [id number] [place] [address] 77401- 2043 Oct, Pre-op evaluation V72.84 [facility] [address] [address]- 0555 Oct, [facility] [id number] [address]- 6340 Oct, [facility] [address] [address]- 1917 September, [facility] [address] [address]- 4399 September, [facility] [id number] [address]- 0047 September, Hallux valgus (acquired) 735.0 and Other hammer toe ( acquired) 735.4 [facility] [id number] [address]- 3864 Aug, [facility] [address] [address]- 0617 Aug, [facility] [place] [facility] [address] [id number] [place] [address]- 3466 Jul, [facility] [place] [facility] [address] [id number] [place] [address]- 6537 Jul, [facility] [place] [facility] [address] [id number] [place] [address]- 2480 Jul, [facility] [place] [facility] [address] [id number] [place] [address]- 9005 Jul, 2014 [facility] [place] [facility] [address] [id number] [place] [address]- 9664 Jul, [facility] [place] [facility] [address] [id number] [place] [address]- 3616 Jul, [facility] [place] [facility] [address] [facility] [id number] [place] [address]- 0630 Jul, [facility] [place] [facility] [address] [id number] [place] [address]- 1012 Jul, [facility] [place] [facility] [address] [id number] [place] [address]- 2083 Jun, [facility] [place] [facility] [address] [id number] [place] [address]- 4509 Jun, [facility] [place] [facility] [address] [id number] [place] [address]- 0779 Jun, 2014 [facility] [place] [facility] [address] [id number] [place] [address]- 1436 Jun, 2014 [facility] [place] [facility] [address] [id number] [place] [address]- 2139 Jun, 2014 [facility] [place] [facility] [address] [id number] [place] [address]- 8386 Jun, 2014 [facility] [place] [facility] [address] [facility] [id number] [place] [address]- 4554 Jun, [facility] [place] [facility] [address] [id number] [place] [address]- 0801 Jun, [facility] [place] [facility] [address] [id number] [place] [address]- 9159 Jun, [facility] [place] [facility] [address] [id number] [place] [address]- 6546 Jun, [facility] [place] [facility] [address] [id number] [place] [address]- 4697 May, [facility] [place] [facility] [address] [id number] [place] [address]- 2287 May, [facility] [place] [facility] [address] [id number] [place] [address]- 0443 May, [facility] [place] [facility] [address] [id number] [place] [address]- 8362 May, [facility] [place] [facility] [address] [id number] [place] [address]- 3488 May, [facility] [place] [facility] [address] [id number] [place] [address]- 0730 May, [facility] [place] [facility] [address] [id number] [place] [address]- 6357 May, [facility] [place] [facility] [address] [id number] [place] [address]- 2630 May, [facility] [place] [facility] [address] [id number] [place] [address]- 0904 May, [facility] [place] [facility] [address] [id number] [place] [address]- 3937 May, [facility] [place] [facility] [address] [id number] [place] [address]- 3082 May, [facility] [place] [facility] [address] [id number] [place] [address]- 8896 May, [facility] [place] [facility] [address] [id number] [place] [address]- 3987 May, [facility] [place] [facility] [address] [id number] [place] [address]- 9720 May, [facility] [place] [facility] [address] [id number] [place] [address]- 8389 May, [facility] [place] [facility] [address] [id number] [place] [address]- 8768 May, [facility] [place] [facility] [address] [id number] [place] [address]- 0543 May, [facility] [place] [facility] [address] [id number] [place] [address]- 6476 May, [facility] [place] [facility] [address] [id number] [place] [address]- 2094 Apr, [facility] [place] [facility] [address] [id number] [place] [address]- 7320 Apr, [facility] [place] [facility] [address] [id number] [place] [address]- 7869 Apr, [facility] [place] [facility] [address] [id number] [place] [address]- 1342 Apr, [facility] [place] [facility] [address] [id number] [place] [address]- 6632 Apr, [facility] [place] [facility] [address] [id number] [place] [address]- 1296 Apr, [facility] [place] [facility] [address] [id number], [place] [address]- 6899 Apr, [facility] [place] [facility] [address] [id number] [place] 9629 Apr, [facility] [place] [facility] [address] [id number] [place] [address]- 0827 Apr, [facility] [place] [facility] [address] [id number] [place] [address]- 8284 Mar, [facility] [place] [facility] [address] [id number] [place] [address]- 7701 Mar, [facility] [place] [facility] [address] [id number] [place] [address]- 0173 Mar, [facility] [place] [facility] [address] [id number] [place] [address]- 4267 Mar, [facility] [place] [facility] [address] [id number] [place] [address]- 3476 Mar, [facility] [place] [facility] [address] [id number] [place] [address]- 6876 Feb, [facility] [place] [facility] [address] [id number] [place] [address]- 4014 Feb, [facility] [place] [facility] [address] [id number] [place] [address]- 3692 Feb, [facility] [place] [facility] [address] [id number] [place] [address]- 2367 Feb, [facility] [place] [facility] [address] [id number] [place] [address]- 1165 Feb, [facility] [place] [facility] [address] [id number] [place] [address]- 6468 Feb, [facility] [place] [facility] [address] [id number] [place] [address]- 9242 Feb, [facility] [place] [facility] [address] [id number] [place] [address]- 2638 Feb, [facility] [place] [facility] [address] [id number], [place] [address]- 5915 Feb, [facility] [place] [facility] [address] [id number] [place] [address]- 6712 Feb, [facility] [place] [facility] [address] [id number] [place] [address]- 1949 Feb, [facility] [place] [facility] [address] [id number] 7748 Feb, [facility] [place] [facility] [address] [id number] [place] [address]- 4404 Feb, 2013 [facility] [place] [facility] [address] [id number] [place] [address]- 5228 Feb, [facility] [place] [facility] [address] [id number] [place] [address]- 2757 Feb, [facility] [place] [facility] [address] [id number] [place] [address]- 7792 Feb, [facility] [place] [facility] [address] [id number] [place] [address]- 8031 Jan, [facility] [place] [facility] [address] [id number] [place] [address]- 8162 23 Jan, 2014 [facility] [place] [facility] [address] [id number] [place] [address]- 5117 20 Jan, 2014 [facility] [place] [facility] [address] [id number] [place] [address]- 8091 19 Jan, 2014 [facility] [place] [facility] [address] [id number] [place] [address]- 0666 Jan, [facility] [place] [facility] [address] [id number] [place] [address]- 8165 Jan, [facility] [place] [facility] [address] [id number] [place] [address]- 4483 Jan, [facility] [place] [facility] [address] [id number] [place] [address]- 9372 Jan, [facility] [place] [facility] [address] [id number] [place] [address]- 1063 Dec, [facility] [place] [facility] [address] [id number] [place] [address]- 7884 Dec, [facility] [place] [facility] [address] [id number] [place] [address]- 9469 Nov, [facility] [place] [facility] [address] [id number] [place] [address]- 8026 Nov, [facility] [place] [facility] [address] [id number] [address]- 7624 Nov, [facility] [place] [facility] [address] [id number] [place] [address]- 1141 Nov, [facility] [place] [facility] [address] [id number] [place] [address]- 5895 Nov, [facility] [place] [facility] [address] [id number] [place] [address]- 1668 Nov, [facility] [place] [facility] [address] [id number] [place] [address]- 2655 Nov, [facility] [place] [facility] [address] [id number] [place] [address]- 1739 Nov, [facility] [place] [facility] [address] [id number] [place] [address]- 3607 Nov, [facility] [place] [facility] [address] [id number] [place] [address]- 7269 Oct, [facility] [place] [facility] [address] [id number] [place] [address]- 9543 Oct, [facility] [place] [facility] [address] [id number] [place] [address]- 5216 Oct, [facility] [place] [facility] [address] [id number] [place] [address]- 9430 Oct, [facility] [place] [facility] [address] [id number] [place] [address]- 0491 Oct, [facility] [place] [facility] [address] [id number] [place] [address]- 4239 Oct, [facility] [place] [facility] [address] [id number] [place] [address]- 6985 September, [facility] [place] [facility] [address] [id number] [place] [address]- 8500 September, [facility] [place] [facility] [address] [id number] [place] [address]- 9557 September, [facility] [address] [id number] [place] [address]- 9723 September, [facility] [address] [id number] [place] [address]- 1371 September, [facility] [address] [id number] [place] [address]- 3798 September, [facility] [address] [id number] [place] [address]- 7591 September, [facility] [address] [id number] [place] [address]- 8029 September, [facility] [address] [id number] [place] [address]- 6684 September, [facility] [address] [id number] [place] [address]- 3961 September, [facility] [address] [id number] [place] [address]- 6467 September, [facility] [address] [id number] [place] [address]- 0686 September, [facility] [address] [id number] [place] [address]- 6592 September, [facility] [address] [id number] [place] [address]- 9738 September, [facility] [address] [id number] [place] [address]- 4802 September, [facility] [address] [id number] [place] [address]- 9352 September, [facility] [address] [id number] [place] [address]- 3425 September, [facility] [address] [id number] [place] [address]- 5586 September, [facility] [place] [facility] [address] [id number] [place] [address]- 9061 September, [facility] [place] [facility] [address] [id number] [place] [address]- 3338 September, [facility] [place] [facility] [address] [id number] [place] [address]- 8973 Aug, [facility] [place] [facility] [address] [id number] [place] [address]- 5127 Aug, [facility] [place] [facility] [address] [id number] [place] [address]- 1670 Aug, [facility] [place] [facility] [address] [id number] [place] [address]- 7756 Aug, [facility] [place] [facility] [address] [id number] [place] [address]- 8807 Aug, [facility] [place] [facility] [address] [id number] [place] [address]- 0482 Aug, [facility] [place] [facility] [address] [id number] [place] [address]- 1703 Aug, [facility] [place] [facility] [address] [id number] [place] [address]- 4188 Aug, [facility] [place] [facility] [address] [id number] [place] [address]- 9991 Aug, [facility] [place] [facility] [address] [id number] [place] [address]- 0085 Aug, [facility] [place] [facility] [address] [id number] [place] [address]- 6671 Aug, [facility] [place] [facility] [address] [id number] [place] [address]- 9272 Aug, [facility] [place] [facility] [address] [id number] [place] [address]- 6819 Aug, [facility] [place] [facility] [address] [id number] [place] [address]- 2415 Aug, [facility] [place] [facility] [address] [id number] [place] [address]- 8080 Aug, [facility] [place] [facility] [address] [id number] [place] [address]- 3601 Jul, [facility] [place] [facility] [address] [id number] [place] 5799 31 Jul, 2013 [facility] [place] [facility] [address] [id number] [place] [address]- 8040 27 Jul, 2013 [facility] [place] [facility] [address] [id number] [place] [address]- 9141 27 Jul, 2013 [facility] [place] [facility] [address] [id number] [place] [address]- 4520 Jul, [facility] [place] [facility] [address] [id number] [place] [address]- 5368 Jul, [facility] [place] [facility] [address] [id number] [place] [address]- 4226 18 Jul, 2013 [facility] [place] [facility] [address] [id number] [place] [address]- 0041 18 Jul, 2013 [facility] [place] [facility] [address] [id number] [place] [address]- 1182 Jul, [facility] [place] [facility] [address] [id number] [place] [address]- 4431 06 Jul, 2013 [facility] [place] [facility] [address] [id number] [place] [address]- 0456 Jul, [facility] [place] [facility] [address] [id number] [place] [address]- 7066 04 Jul, 2013 [facility] [place] [facility] [address] [id number] [place] [address]- 4075 Jul, [facility] [place] [facility] [address] [id number] [place] [address]- 5985 Jul, [facility] [place] [facility] [address] [id number] [place] [address]- 2676 Jul, [facility] [place] [facility] [address] [id number] [place] [address] Jun, [facility] [place] [facility] [address] [id number] [place] [address] Jun, [facility] [place] [facility] [address] [id number] [place] [address] Jun, [facility] [place] [facility] [address] [id number] [place] [address] Jun, [facility] [place] [facility] [address] [id number] [place] [address] Jun, [facility] [place] [facility] [address] [id number] [place] [address] Jun, [facility] [place] [facility] [address] [id number] [place] [address] May, [facility] [place] [facility] [address] [id number] [place] [address] May, [facility] [place] [facility] [address] [id number] [place] [address] May, [facility] [place] [facility] [address] [id number] [place] [address] May, [facility] [place] [facility] [address] [id number] [place] [address] May, [facility] [place] [facility] [address] [id number] [place] [address] May, [facility] [place] [facility] [address] [id number] [place] [address] May, [facility] [place] [facility] [address] [id number] [place] [address] May, [facility] [place] [facility] [address] [id number] [place] [address] May, [facility] [address] [id number] [place] [address] May, [facility] [place] [facility] [address] [id number] [place] [address] May, [facility] [place] [facility] [address] [id number] [place] [address] May, [facility] [place] [facility] [address] [id number] [place] [address] May, [facility] [place] [facility] [address] [id number] [place] [address] May, [facility] [place] [facility] [address] [id number] [place] [address] May, [facility] [place] [facility] [address] [id number] [place] [address] Apr, [facility] [place] [facility] [address] [id number] [place] [address] Apr, [facility] [place] [facility] [address] [id number] [place] [address] Apr, [facility] [place] [facility] [address] [id number] [place] [address] Apr, [facility] [place] [facility] [address] [id number] [place] [address] Apr, [facility] [place] [facility] [address] [id number] [place] [address] Apr, [facility] [place] [facility] [address] [id number] [place] [address] Apr, [facility] [place] [facility] [address] [id number] [place] [address] Apr, [facility] [place] [facility] [address] [id number] [place] [address]67 Apr, [facility] [place] [facility] [address] [id number] [place] [address]- [address] Apr, [facility] [address] [id number] [place] [address] Mar, [facility] [address] [id number] [place] [address] Mar, [facility] [address] [id number] [place] [address] Mar, [facility] [address] [id number] [place] [address] Mar, [facility] [address] [id number] [place] [address] Mar, [facility] [address] [id number] [place] [address] Mar, [facility] [address] [id number] [place] [address] Mar, [facility] [address] [id number] [place] [address] Mar, [facility] [address] [id number] [place] [address] Mar, [facility] [address] [id number] [place] [address] Mar, [facility] [address] [id number] [place] [address] Mar, [facility] [address] [id number], [place] [address] Mar, [facility] [place] [facility] [address] [id number] [place] [address] Mar, [facility] [address] [id number] [place] [address]- [address] Mar, [facility] [address] [id number] [place] [address]- [address] Mar, [facility] [place] [facility] [address] [id number] [place] [address] 18 Mar, 2013 [facility] [place] [facility] [address] [id number] [place] [address] Mar, [facility] [place] [facility] [address] [id number] [place] [address]- [address] Mar, [facility] [place] [facility] [address] [id number] [place] [address]- [address] Mar, [facility] [place] [facility] [address] [id number] [place] [address]- [address] Mar, [facility] [place] [facility] [address] [id number] [place] [address]- [address] Mar, [facility] [place] [facility] [address] [id number] [place] [address] Mar, [facility] [place] [facility] [address] [id number] [place] [address] Mar, [facility] [place] [facility] [address] [id number] [place] [address] Feb, [facility] [facility] [address] [id number], [place] [address] Feb, [facility] [place] [facility] [address] [id number], [place] [address] Feb, [facility] [place] [facility] [address] [id number], [place] [address] 16 Feb, 2013 [facility] [place] [facility] [address] [id number] [place] [address] 15 Feb, 2013 [facility] [place] [facility] [address] [id number], [place] [address] Feb, [facility] [place] [facility] [address] [id number] [address] Feb, [facility] [place] [facility] [address] [id number] [place] [address]- [address] 07 Feb, 2013 [facility] [address] [id number] [place] [address] 04 Feb, 2013 [facility] [place] [facility] [address] [id number] [place] [address] 32[address] 03 Feb, 2013 [facility] [place] [facility] [address] [id number] [place] [address] 4591 30 Jan, 2013 [facility] [place] [facility] [address] [id number] [place] [address] 2103 26 Jan, 2013 [facility] [place] [facility] [address] [id number] [place] [address] 3426 24 Jan, 2013 [facility] [place] [facility] [address] [id number] [place] [address] 0098 23 Jan, 2013 [facility] [address] [id number] [place] [address] 5466 17 Jan, 2013 [facility] [place] [facility] [address] [id number] [place] [address] 7875 Dec, [facility] [place] [facility] [address] [id number] [place] [address] 4607 Dec, [facility] [place] [facility] [address] [id number] [place] [address] 9572 16 Dec, 2012 [facility] [place] [facility] [address] [id number] [place] [address] 3726 15 Dec, 2012 [facility] [place] [facility] [address] [id number] [place] [address] 0271 14 Dec, 2012 [facility] [place] [facility] [address] [id number] [place] [address]- 6576 Dec, [facility] [place] [facility] [address] [id number] [place] [address] 0023 Dec, [facility] [place] [facility] [address] [id number] [place] [address]- 6551 Nov, [facility] [place] [facility] [address] [id number] [place] [address] 2540 16 Nov, 2012 [facility] [address] [id number] [place] [address]- 5492 15 Nov, 2012 [facility] [place] [facility] [address] [id number] [place] [address]- 2546 05 Nov, 2012 [facility] [place] [facility] [address] [id number] [place] [address]- 9533 Nov, [facility] [place] [facility] [address] [id number] [place] [address] 8551 Oct, [facility] [place] [facility] [address] [id number] [place] [address]- 1101 Oct, [facility] [address] [id number] [place] [address] 8806 Oct, [facility] [address] [id number] [place] [address]- 0338 September, [facility] [address] [id number] [place] [address]- 6988 September, [facility] [address] [id number] [place] [address] 9515 September, [facility] [address] [id number] [place] [address]- 9360 September, [facility] [address] [id number] [place] [address] 2183 September, [facility] [place] [facility] [address] [id number] [place] [address] 3062 September, [facility] [place] [facility] [address] [id number] [place] [address]- 7926 September, [facility] [place] [facility] [address] [id number] [place] [address]- 8273 Aug, [facility] [place] [facility] [address] [id number] [place] [address]- 7906 23 Aug, 2012 [facility] [address] [id number] [place] [address]- 7136 11 Aug, 2012 [facility] [place] [facility] [address] [id number] [place] [address]- 1829 29 Jul, 2012 [facility] [address] [facility] [id number] [place] [address]- 4428 27 Jul, 2012 [facility] [place] [facility] [address] [facility] [id number] [place] [address]- 4695 26 Jul, 2012 [facility] [address] [facility] [id number] [place] [address]- 9054 20 Jul, 2012 [facility] [place] [facility] [address] [facility] [id number] [place] [address]- 8369 18 Jul, 2012 [facility] [address] [facility] [id number] [place] [address]- 0805 18 Jul, 2012 [facility] [place] [facility] [address] [facility] [id number], [place] [address] 6[address] 13 Jul, 2012 [facility] [place] [facility] [address] [facility] [id number] [place] [address]- 0930 28 Jun, 2012 [facility] [place] [facility] [address] [facility] [id number] [place] [address]- 9001 27 Jun, 2012 [facility] [place] [facility] [address] [facility] [id number], [place] [address]- 0090 22 Jun, 2012 [facility] [place] [facility] [address] [facility] [id number], [place] [address]- 9517 20 Jun, 2012 [facility] [place] [facility] [address] [facility] [id number] [place] [address]- 5722 15 Jun, 2012 [facility] [place] [facility] [address] [facility] [id number], [place] [address]- 7270 15 Jun, 2012 [facility] [place] [facility] [address] [facility] [id number] [place] [address]- 9508 13 Jun, 2012 [facility] [place] [facility] [address] [id number] [place] [address]- 8730 Jun, [facility] [address] [id number] [place] [address]- 3336 Jun, [facility] [place] [facility] [address] [id number] [place] [address]- 2546 Jun, [facility] [place] [facility] [address] [id number] [place] [address]- 0263 May, [facility] [place] [facility] [address] [id number] [place] [address]- 5319 May, [facility] [place] [facility] [address] [id number] [place] [address]- 1598 May, [facility] [address] [id number] [place] [address]- 6699 May, [facility] [address] [id number] [place] [address]- 1011 May, [facility] [address] [id number] [place] [address] 1602 May, [facility] [address] [id number] [place] [address]- 9452 Apr, [facility] [address] [id number] [place] [address]- 6372 31 Apr, 2012 [facility] [place] [facility] [address] [id number] [place] [address]- 7689 Apr, [facility] [place] [facility] [address] [id number] [place] [address]- 9324 28 Apr, 2012 [facility] [place] [facility] [address] [id number] [place] [address]- 4880 26 Apr, 2012 [facility] [place] [facility] [address] [id number] [place] [address]- 6144 20 Apr, 2012 [facility] [place] [facility] [address] [id number], [place] [address]- 6699 Apr, [facility] [place] [facility] [address] [id number] [place] [address]- 0497 Mar, [facility] [place] [facility] [address] [id number] [place] [address]- 5054 29 Mar, 2012 [facility] [place] [facility] [address] [facility] [id number] [place] [address]- 9239 Mar, [facility] [place] [facility] [address] [id number], [place] [address]- 3504 Mar, [facility] [place] [facility] [address] [id number] [place] [address]- 3042 Mar, [facility] [place] [facility] [address] [id number] [place] [address]- 8893 Mar, [facility] [place] [facility] [address] [id number] [place] [address]- 6637 Mar, [facility] [place] [facility] [address] [id number], [place] [address]- 0793 Mar, [facility] [place] [facility] [address] [id number] [place] [address]- 2042 Mar, [facility] [place] [facility] [address] [id number] [place] [address]- 5294 Mar, [facility] [place] [facility] [address] [id number], [place] [address]- 8179 Mar, [facility] [place] [facility] [address] [id number], [place] [address]- 4526 Mar, [facility] [place] [facility] [address] [id number] [place] [address]- 3904 Mar, [facility] [place] [facility] [address] [facility] [id number], [place] [address]- 3520 Mar, [facility] [place] [facility] [address] [facility] [id number], [place] [address]- 4085 Mar, [facility] [place] [facility] [address] [id number] [place] [address] 2548 Mar, [facility] [place] [facility] [address] [id number] [place] [address]- 3261 Mar, [facility] [place] [facility] [address] [id number] [place] [address]- 0046 Feb, [facility] [place] [facility] [address] [id number] [place] [address]- 4378 Feb, [facility] [place] [facility] [address] [id number] [place] [address]- 1594 Feb, [facility] [place] [facility] [address] [id number] [place] [address]- 1034 Feb, [facility] [place] [facility] [address] [id number] [place] [address]- 0524 Feb, [facility] [place] [facility] [address] [id number] [place] [address]- 1213 Feb, [facility] [place] [facility] [address] [id number] [place] [address] Feb, [facility] [place] [facility] [address] [facility] [id number] [place] [address]- 3232 Feb, [facility] [place] [facility] [address] [facility] [id number] [place] [address] Feb, [facility] [place] [facility] [address] [id number] [place] [address]- 1067 Feb, [facility] [place] [facility] [address] [id number] [place] [address]- 3522 Feb, [facility] [place] [facility] [address] [id number] [place] [address]- 0357 27 Jan, 2012 [facility] [place] [facility] [address] [id number] [place] [address]- 0876 Jan, [facility] [place] [facility] [address] [id number] [place] [address]- 7406 13 Jan, 2012 [facility] [place] [facility] [address] [id number] [place] [address]- 3418 12 Jan, 2012 [facility] [place] [facility] [address] [id number] [place] [address]- 8413 Jan, [facility] [place] [facility] [address] [id number] [place] [address]- 1497 Dec, [facility] [place] [facility] [address] [id number] [place] [address]- 5966 Dec, [facility] [place] [facility] [address] [id number] [place] [address]- 5401 Dec, [facility] [place] [facility] [address] [id number] [place] [address]- 3869 Dec, [facility] [place] [facility] [address] [id number] [place] [address]- 0723 Dec, [facility] [place] [facility] [address] [id number] [place] [address]- 8380 Dec, [facility] [place] [facility] [address] [id number] [place] [address]- 2100 Dec, [facility] [place] [facility] [address] [id number] [place] [address]- 2968 Dec, [facility] [place] [facility] [address] [id number] [place] [address]- 5353 Nov, [facility] [place] [facility] [address] [id number] [place] [address]- 0302 Nov, [facility] [place] [facility] [address] [id number] [place] [address]- 7801 Nov, [facility] [place] [facility] [address] [id number] [place] [address]- 1231 Nov, [facility] [place] [facility] [address] [id number] [place] [address]- 4977 Nov, [facility] [place] [facility] [address] [id number] [place] [address]- 9932 Oct, [facility] [address] [id number] [place] [address]- 7200 Oct, [facility] [place] [facility] [address] [id number] [place] [address]- 7167 September, [facility] [address] [id number] [place] [address]- 7826 September, [facility] [address] [id number] [place] [address]- 3619 September, [facility] [address] [id number] [place] [address]- 9238 September, [facility] [address] [id number] [place]25 September, [facility] [address] [id number] [place] [address]- 4815 September, [facility] [address] [id number] [place] [address]- 8788 September, [facility] [address] [id number] [place] [address]- 3557 September, [facility] [address] [id number] [place] [address]- 5061 September, [facility] [address] [id number] [place] [address]- 8407 September, [facility] [place] [facility] [address] [id number] [place] [address]- 9265 September, [facility] [place] [facility] [address] [id number] [place] [address]- 4049 September, [facility] [place] [facility] [address] [id number] [place] [address]- 8517 September, [facility] [place] [facility] [address] [id number] [place] [address]- 5573 September, [facility] [place] [facility] [address] [id number] [place] [address]- 7939 24 Aug, 2011 [facility] [address] [id number] [place] [address]- 4959 20 Aug, 2011 [facility] [place] [facility] [address] [id number] [place] [address]- 1976 13 Aug, 2011 [facility] [address] [id number] [place] [address]- 9100 11 Aug, 2011 [facility] [place] [facility] [address] [id number] [place] [address]- 2369 23 Jul, 2011 [facility] [place] [facility] [address] [id number] [place] [address]- 6290 13 Jul, 2011 [facility] [place] [facility] [address] [facility] [id number] [place] [address]- 9023 13 Jul, 2011 [facility] [address] [id number] [place] [address]- 6434 28 Jun, [address] [facility] [address] [id number] [id number] 26 Jun, 2011 [facility] [address] [id number] [address]- 9341 13 Jun, 2011 [facility] [address] [id number] [address]- 3468 10 Jun, 2011 [facility] [place] [facility] [address] [id number] [place] [address]- 4963 07 Jun, 2011 [facility] [place] [facility] [address] [id number] [place] [address]- 1629 07 Jun, 2011 [facility] [place] [facility] [address] [id number] [place] [address]- 6573 03 Jun, 2011 [facility] [place] [facility] [address] [id number] [place] [address]- 5271 02 Jun, 2011 [facility] [place] [facility] [address] [id number] [place] [address]- 7564 31 May, 2011 [facility] [address] [id number] [place] [address]- 5813 30 May, 2011 [facility] [place] [facility] [address] [id number] [place] [address]- 4975 May, [facility] [place] [facility] [address] [id number] [place] [address]- 1318 May, [facility] [place] [facility] [address] [id number] [place] [address]- 3583 May, [facility] [place] [facility] [address] [id number] [place] [address]- 3263 May, [facility] [place] [facility] [address] [id number] [place] [address]- 9380 May, [facility] [place] [facility] [address] [id number] [place] [address]- 7239 May, [facility] [place] [facility] [address] [id number] [place] [address]- 5942 May, [facility] [place] [facility] [address] [id number] [place] [address]- 5131 May, [facility] [place] [facility] [address] [id number] [place] [address]- 6046 May, [facility] [place] [facility] [address] [id number] [place] [address]- 2782 May, [facility] [place] [facility] [address] [id number] [place] [address]- 8165 May, [facility] [place] [facility] [address] [id number] [place] [address]- 9103 May, [facility] [place] [facility] [address] [id number] [place] [address]- 4064 Apr, [facility] [place] [facility] [address] [id number] [place] [address]- 2296 Apr, [facility] [place] [facility] [address] [id number] [place] [address]- 0074 05 Apr, 2011 [facility] [address] [id number] [place] [address]- 6676 17 Mar, 2011 [facility] [place] [facility] [address] [id number] [place] [address] 2546 Mar, [facility] [address] [id number] [place] [address]- 3246 31 Feb, 2011 [facility] [place] [facility] [address] [id number] [place] [address] 2546 26 Feb, 2011 [facility] [address] [id number] [place] [address]- 0317 Feb, [facility] [address] [id number] [place] [address]- 1127 20 Feb, 2011 [facility] [address] [id number] [place] [address]- 4547 13 Feb, 2011 [facility] [address] [id number] [place] [address]- 3300 28 Apr, 2010 [facility] [place] [facility] [address] [id number] [place] [address] 2546 22 Apr, 2010 [facility] [address] [id number] [place] [address] 2543 16 Apr, 2010 [facility] [place] [facility] [address] [id number] [place] [address] 2546 15 Apr, 2010 [facility] [place] [facility] [address] [id number] [place] [address] 2546 15 Apr, 2010 [facility] [place] [facility] [address] [id number] [place] [address] 2546 Apr, [facility] [place] [facility] [address] [id number] [place] [address]- 2546 24 Mar, 2010 [facility] [place] [facility] [address] [id number] [place] [address] 2549 17 Mar, 2010 [facility] [address] [id number], [place] [address]- 4843 17 Mar, 2010 [facility] [id number], [place] [address]- 3094 28 Feb, 2010 [facility] [id number], [place] [address]- 0131 Feb, [facility] [id number], [place] [address]- 8797 Feb, [facility] [id number], [place] [address]- 6703 Feb, [facility] [id number], [place] [address]- 3836 Dec, [facility] [id number], [place] [address]- 5062 Dec, [facility] [id number] [place] [address]- 0898 Oct, [facility] [id number], [place] [address]- 8577 Mar, [facility] [address] [id number], [place] [address]- 3982 Mar, [facility] [address] [id number], [place] [address]- 3781 September, IMMUNIZATIONS No Known Immunizations SOCIAL HISTORY Never Assessed REASON FOR VISIT Appointment Needed PLAN OF CARE VITAL SIGNS MEDICATIONS Unknown [...]
--- OUTSIDE RECORDS SUMMARY | 2018-01-08 15:21 | XMS REPORT ---
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 Name Role Phone VALERIE ZAVALA Unavailable PROBLEMS Type Condition ICD9-CM Code BKN70-LL Code Onset Dates Condition Status SNOMED Code Problem Generalized anxiety disorder F41.1 Active 14952461 Problem Hypokalemia E87.6 Active 942219336 Problem Right low back pain, with sciatica presence unspecified M54.5 Active 033860046 Problem Post-traumatic stress disorder, chronic F43.12 Active 82008331 Problem Pain in right knee M25.561 Active 07563299 Problem Gastroesophageal reflux disease without esophagitis K21.9 Active 521171543 Problem UTI symptoms R39.9 Active 39778152 Problem Essential hypertension I10 Active 80890008 Problem Anxiety F41.9 Active 15460099 Problem Neuropathy G62.9 Active 692086130 Problem Other chronic pain G89.29 Active 02081180 Problem Generalized abdominal pain R10.84 Active 430235816 Problem Chronic pain G89.29 Active 59044706 Problem Back pain M54.9 Active 290431569 Problem Right foot pain M79.671 Active 23607906 Problem Panic attacks F41.0 Active 236256285 Problem Other emphysema J43.8 Active 97982190 Problem Kidney stones N20.0 Active 61308457 Problem Renal calculus, right N20.0 Active 26588403 Problem Weight decrease R63.4 Active 300771083 Problem Tobacco abuse Z72.0 Active 22595510 Problem Bone pain M89.8X9 Active 08484964 Problem Depression, unspecified depression type F32.9 Active 30611221 Problem Insomnia, unspecified type G47.00 Active 214968944 Problem Pulmonary emphysema, unspecified emphysema type J43.9 Active 92569773 Problem Right upper quadrant abdominal pain R10.11 Active 166299436 Problem Weight loss R63.4 Active 315440713 ALLERGIES Substance Reaction Event Type Date Status Sulfur rash Drug Allergy September, Active Remeron itching Drug Allergy September, Active Morphine Sulfate nausea Drug Allergy September, Active Demerol Unknown Drug Allergy September, Active Fentanyl 25 Mcg/hr Patch 72 Hr Unknown Non Drug Allergy September, Active ENCOUNTERS Encounter Location Date Diagnosis [facility] [id number] [address] Dec, [facility] [id number] [place] [address] 68369- 2910 Dec, [facility] [id number] [place] [address] 90017- 4291 Dec, [facility] [id number] [place] [address] 54245- 8793 Dec, Medicare welcome exam Z00.00 [facility] [id number] [place] [address] 31012- 5196 Nov, [facility] [id number] [place] [address] 80124- 1763 Nov, Pelvic pain R10.2 ; Acute pyelonephritis N10 and Essential hypertension I10 [facility] [id number] [place] [address] 03882- 3822 Oct, Medicare welcome exam Z00.00 [facility] [id number] [place] [address] 87789- 4589 Oct, Gross hematuria R31.0 ; Urinary tract infection without hematuria, site unspecified N39.0 and Weakness R53.1 [facility] [id number] [place] [address] 71650- 2992 Oct, [facility] [id number] [place] [address] 01210- 9447 Oct, [facility] [id number] [place] [address] 18080- 5656 Oct, Medicare welcome exam Z00.00 [facility] [address] [address] 3224 September, Back pain M54.9 and Right anterior knee pain M25.561 [facility] [id number] [place] [address] 50769- 1517 September, [facility] [id number] [place] [address] 93683- 7873 September, [facility] [id number] [place] [address] 81924- 0073 September, Essential hypertension I10 [facility] [id number] [place] [address] 13772- 5533 September, [facility] [id number] [place] [address] 46199- 8428 September, RLQ abdominal pain R10.31 ; Low back pain M54.5 and Other chronic pain G89.29 [facility] [id number] [place] [address] 72847- 4276 Aug, Medicare welcome exam Z00.00 [facility] [id number] [place] [address] 43133- 2199 Aug, [facility] [id number] [place] [address] 98555- 9961 Aug, Acute pyelonephritis N10 and Medicare welcome exam Z00.00 [facility] [id number] [place] [address] 64221 -4883 Aug, Dysuria R30.0 and Acute pyelonephritis N10 [facility] [id number] [place] [address] 95633- 6976 Aug, [facility] [id number] [place] [address] 28318- 6203 Aug, [facility] [id number] [place] [address] 89647- 4158 Aug, [facility] [address] [address] 3702 Aug, [facility] [id number] [place] [address] 36991- 6156 Jul, [facility] [id number] [place] [address] 59488- 9660 Jul, Renal calculus, right N20.0 and Medicare welcome exam Z00.00 [facility] [id number] [place] [address] 61431 -1093 Jul, Dysuria R30.0 and Renal calculus, right N20.0 [facility] [id number] [place] [address] 41648- 6097 Jul, Medicare welcome exam Z00.00 [facility] [id number] [place] [address] 88941- 4234 Jun, Gastroesophageal reflux disease without esophagitis K21.9 and Generalized abdominal pain R10.84 [facility] [id number] [place] [address] 89541- 4819 Jun, Medicare welcome exam Z00.00 [facility] [id number] [place] [address] 31552- 7776 Jun, [facility] [id number] [place] [address] 31919- 2760 Jun, Medicare welcome exam Z00.00 and Encounter for screening mammogram for malignant neoplasm of breast Z12.31 [facility] [id number] [place] [address] 54956- 3221 Jun, Chronic pain G89.29 [facility] [id number] [place] [address] 29166- 9332 May, [facility] [id number] [place] [address] 49814- 4770 May, Pelvic pain R10.2 [facility] [address] [place] [address]- 1275 May, Pelvic pain R10.2 [facility] [id number] [place] [address] 70566 -7919 May, Renal calculus, right N20.0 [facility] [id number] [place] [address] 78589- 1513 May, Hematuria, unspecified type R31.9 and Nephrolithiasis N20.0 [facility] [id number] [place] [address] 06613 -0333 May, Dysuria R30.0 and Nephrolithiasis N20.0 [facility] [id number] [place] [address] 33997- 4123 May, [facility] [id number] [place] [address] 03566 -1011 May, Abdominal pain R10.9 and Kidney stone N20.0 [facility] [id number] [place] [address] 86418- 9729 May, [facility] [address] 19243- 6848 May, Chronic pain G89.29 and Panic attacks F41.0 [facility] [id number] [place] [address] 33507- 3203 May, Urinary tract infection without hematuria, site unspecified N39.0 [facility] [id number] [place] [address] 23435- 9256 Apr, Right lower quadrant abdominal pain R10.31 and Abnormal serum lipase level R74.8 [facility] [id number] [place] [address] 94894- 0550 Apr, Recurrent urinary tract infection N39.0 [facility] [id number] [place] [address] 12349- 5072 Apr, UTI symptoms R39.9 ; Recurrent urinary tract infection N39.0 and Pelvic pain R10.2 [facility] [id number] [place] [address] 09646- 3582 08 Apr, 2017 Chronic pain G89.29 and Panic attacks F41.0 [facility] [id number] [place] [address] 91796- 6396 Apr, Dysuria R30.0 [facility] [address] 60532- 5143 Apr, [facility] [id number] [place] [address] 12420- 9249 Apr, Dysuria R30.0 and Urinary tract infection without hematuria , site unspecified N39.0 [facility] [id number] [place] [address] 76650- 9035 Mar, UTI symptoms R39.9 [facility] [address] 48933- 3198 Mar, [facility] [id number] [place] [address] 19864- 0917 Mar, Panic attacks F41.0 and Chronic pain G89.29 [facility] [id number] [place] [address] 75105- 6707 Mar, [facility] [id number] [place] [address] 68773- 4103 Mar, Dysuria R30.0 [facility] [id number] [place] [address] 96708- 3021 Mar, Dysuria R30.0 [facility] [id number] [place] [address] 64557- 8236 Feb, Chronic pain G89.29 ; Shortness of breath R06.02 ; Weight loss R63.4 ; Encounter for immunization Z23 ; Bone pain M89.8X9 ; Right anterior knee pain M25.561 and Cough R05 [facility] [address] 24376- 0252 Feb, Shortness of breath R06.02 [facility] [address] 75526- 7125 Feb, [facility] [address] 39150- 2901 Feb, Panic attacks F41.0 and Chronic pain G89.29 [facility] [address] 33332- 0051 Feb, [facility] [address] 19816- 5687 Feb, Panic attacks F41.0 ; Shortness of breath R06.02 and Encounter for immunization Z23 [facility] [address] 03574- 6100 Jan, [facility] [address] 96510- 2579 Jan, Anxiety F41.9 and Chronic pain G89.29 [facility] [address] 92215- 9449 Dec, Anxiety F41.9 and Chronic pain G89.29 [facility] [address] 89557- 5874 Nov, Chronic pain G89.29 [facility] [address] 45179- 7510 Nov, Anxiety F41.9 [facility] [address] 11987- 5719 Nov, Chronic pain G89.29 ; Essential hypertension I10 and Other emphysema J43.8 [facility] [address] 43347- 4575 Oct, Anxiety F41.9 [facility] [address] 14067- 3608 Oct, [facility] [id number] [place] [address] 92813- 1159 Oct, Chronic pain G89.29 [facility] [id number] [place] [address] 50760- 7084 September, Recurrent UTI N39.0 ; Neuropathy G62.9 and Anxiety F41.9 [facility] [id number] [place] [address] 66230- 1581 September, [facility] [id number] [place] [address] 46494- 7025 September, Chronic pain G89.29 [facility] [id number] [place] [address] 93478- 0681 September, [facility] [id number] [place] [address] 80613- 2381 Aug, Post-traumatic stress disorder, chronic F43.12 ; Chronic urinary tract infection N39.0 ; Gastroesophageal reflux disease without esophagitis K21.9 ; Chronic pain G89.29 ; Essential hypertension I10 and Tobacco abuse Z72.0 [facility] [id number] [place] [address] 88306 -4673 Aug, [facility] [id number] [place] [address] 34053- 7504 Aug, Chronic pain G89.29 [facility] [id number] [place] [address] 39453- 1687 Aug, Insomnia, unspecified type G47.00 [facility] [id number] [place] [address] 60929- 8712 Aug, [facility] [id number] [place] [address] 35543- 6151 Jul, Chronic pain G89.29 [facility] [id number] [place] [address] 91834- 9804 Jul, [facility] [id number] [place] [address] 84625- 2779 Jul, [facility] [address] [address]- 4473 Jul, [facility] [id number] [place] [address] 38373- 9169 Jul, Recurrent UTI (urinary tract infection) N39.0 [facility] [id number] [place] [address] 01607- 0872 Jul, [facility] [id number] [place] [address] 15891- 7010 Jun, Chronic pain G89.29 [facility] [id number] [place] [address] 44008- 5579 Jun, [facility] [id number] [place] [address] 82153- 2382 Jun, [facility] [id number] [place] [address] 22190- 6296 May, Chronic pain G89.29 [facility] [id number] [place] [address] 75351- 3901 May, Weight loss R63.4 and Shortness of breath R06.02 [facility] [id number] [place] [address] 95454- 7217 May, Chronic pain G89.29 ; Weight loss R63.4 and Tobacco abuse Z72.0 [facility] [id number] [place] [address] 47759- 5954 May, [facility] [id number] [place] [address] 63305- 1411 May, Hypoxia R09.02 [facility] [id number] [place] [address] 74858- 6030 May, [facility] [id number] [place] [address] 14899- 6919 May, Pulmonary emphysema, unspecified emphysema type J43.9 [facility] [id number] [place] [address] 22169 -0616 May, [facility] [id number] [place] [address] 22279- 3971 May, [facility] [id number] [place] [address] 15845- 3221 May, [facility] [address] 98719- 5829 May, Chronic pain G89.29 ; Encounter for immunization Z23 ; Right anterior knee pain M25.561 and Cough R05 [facility] [address] 22047- 2477 Apr, Chronic pain G89.29 [facility] [address] 44955- 1972 Apr, [facility] [address] 28171- 6116 Apr, Generalized anxiety disorder F41.1 and Depression, unspecified depression type F32.9 [facility] [address] 76771- 0222 Apr, Chronic pain G89.29 ; Hypokalemia E87.6 and Insomnia, unspecified type G47.00 [facility] [id number] [place] [address] 82032- 0548 Apr, [facility] [id number] [place] [address] 37250- 7584 Apr, Chronic pain G89.29 [facility] [address] 39534- 1125 Apr, [facility] [id number] [place] [address] 99236- 3254 Mar, [place] [address] 37427- 0560 Mar, Insomnia, unspecified type G47.00 [facility] [address] [address]- 6358 Mar, Chronic pain G89.29 [facility] [address] [address]- 4685 Mar, [facility] [address] [address]- 1027 Feb, [facility] [id number] [place] [address] 74079- 8952 Feb, [facility] [id number] [place] [address] 17966- 0989 Feb, [facility] [id number] [place] [address] 38445- 7077 Feb, [facility] [id number] [place] [address] 61385- 5387 Feb, [facility] [address] [address]- 2191 29 Jan, 2015 [facility] [id number] [place] [address] 30720- 0318 26 Jan, 2015 [facility] [address] [address]- 9376 20 Jan, 2015 [facility] [id number] [place] [address] 85059- 3381 13 Sep, 2015 [facility] [address] [address]- 2545 12 Jan, 2016 [facility] [id number] [place] [address] 54506- 7502 07 Sep, 2016 Chronic pain G89.29 [facility] [address] [address]- 9100 01 Sep, 2016 Chronic pain G89.29 and Fibromyalgia M79.7 [facility] [id number] [place] [address] 16952- 5649 Dec, Depression, unspecified depression type F32.9 and Generalized anxiety disorder 300.02 [facility] [id number] [place] [address] 86102- 5272 Dec, Dysthymia F34.1 ; Insomnia, unspecified type G47.00 and Chronic pain G89.29 [facility] [id number] [place] [address] 85282- 5874 Dec, Chronic pain G89.29 [facility] [id number] [place] [address] 26039- 3804 Dec, Insomnia, unspecified type G47.00 [facility] [id number] [place] [address] 10864- 9180 Dec, Fibromyalgia M79.7 and Chronic pain G89.29 [facility] [id number] [place] [address] 30561- 6765 Dec, [facility] [id number] [place] [address] 23388- 0301 Dec, [facility] [id number] [place] [address] 77852- 1147 Dec, [facility] [id number] [place] [address] 16350- 9059 Dec, [facility] [id number] [place] [address] 49319- 7695 Dec, Chronic pain G89.29 [facility] [id number] [place] [address] 72024- 5158 Dec, [facility] [id number] [place] [address] 90914- 1920 Dec, [facility] [id number] [place] [address] 53429- 5988 Dec, [facility] [id number] [place] [address] 01233- 0446 Dec, Chronic pain G89.29 and Dysthymia F34.1 [facility] [id number] [place] [address] 44422- 0513 Nov, [facility] [address] 24445- 6958 Nov, Hypokalemia E87.6 and Chronic pain G89.29 [place] [address] 63786- 6804 Nov, Back pain M54.9 and Pain in right knee M25.561 [place] [address] 83038- 0783 Nov, [place] [address] 03244- 4522 Nov, Chronic pain G89.29 [place] [address] 43454- 1555 Nov, Chronic pain G89.29 ; Weight loss R63.4 ; Bone pain M89.8X9 and Insomnia, unspecified type G47.00 [place] [address] 41986- 6228 Nov, Chronic pain G89.29 [facility] [id number] [place] [address] 87483- 8773 Nov, Chronic pain G89.29 [facility] [address] 34410- 7937 Oct, Chronic pain G89.29 [facility] [id number] [place] [address] 20271- 7877 Oct, UTI symptoms R39.9 [facility] [facility] [address] 84489- 9485 Oct, Chronic pain G89.29 [place] [address] 85649- 5532 Oct, Chronic pain G89.29 [facility] [address] [address]- 2125 Oct, Chronic pain G89.29 [facility] [id number] [place] [address] 76773- 1986 Oct, Right upper quadrant abdominal pain R10.11 [facility] [id number] [place] [address] 63475- 6429 Oct, Chronic pain G89.29 [facility] [id number] [place] [address] 28038- 8991 Oct, [facility] [id number] [place] [address] 18007- 8180 September, Chronic pain G89.29 [facility] [id number] [place] [address] 09129- 4345 September, Dysuria R30.0 and Urinary tract infection without hematuria , site unspecified N39.0 [facility] [address] [address]- 0936 September, [facility] [id number] [place] [address] 59699- 4933 September, Dysuria R30.0 [facility] [address] [address] September, Chronic pain G89.29 [facility] [id number] [place] [address]- [address] September, Chronic pain G89.29 and Essential hypertension I10 [facility] [address] [address] September, [facility] [id number] [place] [address]- [address] September, [facility] [address] [address] September, [facility] [address] [address] Aug, UTI symptoms R39.9 [facility] [id number] [place] [address]- 9253 Aug, Dysuria R30.0 [facility] [id number] [place] [address]900- 5887 Aug, [facility] [id number] [place] [address] 57685- 1689 Aug, [facility] [id number] [place] [address] 53259- 37[address] Aug, [facility] [id number] [place] [address] 07293- 6708 Aug, Chronic pain G89.29 [facility] [id number] [place] [address] 20[address]- 2793 Aug, Dysthymia F34.1 [facility] [id number] [place] [address]- 9434 Aug, Conjunctivitis, unspecified conjunctivitis type, unspecified laterality H10.9 [facility] [id number] [place] [address] 7[address]31- 2846 Jul, Chronic pain G89.29 ; Back pain M54.9 ; Tobacco abuse Z72.0 and Weight decrease R63.4 [facility] [id number] [place] [address] 21248- 9305 Jul, [facility] [id number] [place] [address] 9[address]- 3448 Jul, [facility] [id number] [place] [address] 17515- 4744 24 Jul, 2015 Chronic pain G89.29 [facility] [id number] [place] [address] 28812- 8765 Jul, [facility] [id number] [place] [address] 95258- 8815 Jul, [facility] [address] [address] 18 Jul, 2015 [facility] [address] [address] Jul, [facility] [address] [address] Jul, Chronic pain G89.29 [facility] [address] [address] 16 Jul, 2015 Chronic pain G89.29 [facility] [id number] [place] [address] [address] 15 Jul, 2015 [facility] [address] [address] 9[address] Jul, [facility] [id number] [place] [address] 00449- 8243 Jul, [facility] [address] [address] 6424 Jul, [facility] [address] [address] 3[address] Jun, [facility] [address] [address] 44[address] Jun, Depression, unspecified depression type F32.9 [facility] [address] [address] 4289 Jun, Pain in right knee M25.561 [facility] [address] [address] 8163 24 Jun, 2015 Chronic pain G89.29 ; Back pain M54.9 ; Bone pain M89.8X9 and Weight loss R63.4 [facility] [address] [address] 0517 Jun, [facility] [id number] [place] [address] 79216- 5615 May, [facility] [id number] [place] [address] 12010- 8733 May, UTI symptoms R39.9 ; Pain in right knee M25.561 ; Right low back pain, with sciatica presence unspecified M54.5 ; Right foot pain M79.671 ; Hypokalemia E87.6 and Screening, lipid Z13.220 [facility] [id number] [place] [address] 98741- 7115 May, [place] [address] [address] 3504 May, [facility] [id number] [place] [address] 63604- 8610 Mar, [place] [id number] [place] [address] 65640- 8966 Mar, [facility] [id number] [place] [address] 42295- 7434 Mar, Hypokalemia E87.6 [place] [id number] [place] [address] 51287- 9065 Mar, Pain in right leg M79.604 ; Encounter for immunization Z23 ; Pain in right knee M25.561 and Hypokalemia E87.6 [place] [id number] [place] [address] 79503- 7819 Jan, [place] [id number] [place] [address] 35898 2549 Jan, [facility] [id number] [place] [address] 01085- 254 Jan, Abdominal pain, generalized 789.07 [facility] [id number] [place] [address] 00617- 2542 Jan, Abdominal pain, generalized 789.07 [facility] [address] [address]- 0735 Dec, [facility] [id number] [place] [address] 42437- 2887 Dec, [facility] [address] [address]- 7106 Dec, [facility] [id number] [place] [address] 22448- 1458 Nov, Hallux valgus 735.0 and Hammertoe 735.4 [facility] [id number] [place] [address] 56373- 5250 Nov, [facility] [id number] [place] [address] 09451- 3033 Nov, Hallux valgus 735.0 and Hammer toe 735.4 [facility] [id number] [place] [address] 34502- 5915 Oct, [facility] [address] [address]- 1087 Oct, [facility] [id number] [place] [address] 95228- 2290 Oct, Pre-op evaluation V72.84 [facility] [address] [address]- 2807 Oct, [facility] [address] [address]- 8432 Oct, [facility] [address] [address]- 8226 September, [facility] [address] [address]- 4796 September, [facility] [id number] [address]- 4296 September, Hallux valgus (acquired) 735.0 and Other hammer toe ( acquired) 735.4 [facility] [place] [facility] [address] [id number] [place] [address]- 1535 14 Aug, 2014 [facility] [place] [facility] [address] [id number] [place] [address]- 3737 Aug, [facility] [place] [facility] [address] [id number] [place] [address]- 5121 Jul, [facility] [place] [facility] [address] [id number] [place] [address]- 0083 Jul, [facility] [place] [facility] [address] [id number] [place] [address]- 3693 Jul, [facility] [place] [facility] [address] [id number] [place] [address]- 8374 Jul, [facility] [place] [facility] [address] [facility] [id number] [place] [address]- 0990 Jul, [facility] [place] [facility] [address] [facility] [id number] [place] [address]- 6678 Jul, [facility] [place] [facility] [address] [facility] [id number] [place] [address]- 3909 Jul, [facility] [place] [facility] [address] [facility] [id number] [place] [address]- 5555 Jul, [facility] [place] [facility] [address] [facility] [id number] [place] [address]- 8242 Jun, [facility] [place] [facility] [address] [facility] [id number] [place] [address]- 2853 Jun, [facility] [place] [facility] [address] [facility] [id number] [place] [address]- 5243 Jun, [facility] [place] [facility] [address] [id number] [place] [address]- 3854 Jun, [facility] [place] [facility] [address] [facility] [id number] [place] [address]- 2779 Jun, [facility] [place] [facility] [address] [facility] [id number] [place] [address]- 8394 Jun, [facility] [place] [facility] [address] [id number] [place] [address]- 9396 Jun, [facility] [place] [facility] [address] [id number] [place] [address]- 1106 Jun, [facility] [place] [facility] [address] [id number] [place] [address]- 1166 Jun, [facility] [place] [facility] [address] [id number] [place] [address]- 0887 Jun, [facility] [place] [facility] [address] [id number] [place] [address]- 3751 May, [facility] [place] [facility] [address] [id number] [place] [address]- 4821 May, [facility] [place] [facility] [address] [id number] [place] [address]- 7237 May, [facility] [place] [facility] [address] [id number] [place] [address]- 5899 May, [facility] [place] [facility] [address] [id number] [place] [address]- 9912 May, [facility] [place] [facility] [address] [id number] [place] [address]- 5666 May, [facility] [place] [facility] [address] [id number] [place] [address]- 1106 May, [facility] [place] [facility] [address] [id number] [place] [address]- 9316 May, [facility] [place] [facility] [address] [id number] [place] [address]- 8834 May, [facility] [place] [facility] [address] [id number] [place] [address]- 1611 May, [facility] [place] [facility] [address] [id number] [place] [address]- 8379 May, [facility] [place] [facility] [address] [id number] [place] [address]- 5639 May, [facility] [place] [facility] [address] [id number] [place] [address]- 8029 May, [facility] [place] [facility] [address] [id number] [place] [address]- 8878 May, [facility] [place] [facility] [address] [id number] [place] [address]- 0954 May, [facility] [place] [facility] [address] [id number] [place] [address]- 0779 May, [facility] [place] [facility] [address] [id number] [place] [address]- 1984 May, [facility] [place] [facility] [address] [id number] [place] [address]- 3353 May, [facility] [place] [facility] [address] [id number] [place] [address]- 3541 Apr, [facility] [place] [facility] [address] [id number] [place] [address]- 0988 Apr, [facility] [place] [facility] [address] [id number] [place] [address]- 1282 Apr, [facility] [place] [facility] [address] [id number] [place] [address]- 6093 Apr, [facility] [place] [facility] [address] [id number] [place] [address]- 8694 Apr, [facility] [place] [facility] [address] [id number] [place] [address]- 0254 Apr, [facility] [place] [facility] [address] [id number] [place] [address]- 3600 Apr, [facility] [place] [facility] [address] [id number] [place] [address]- 4255 Apr, [facility] [place] [facility] [address] [id number] [place] [address]- 8079 Apr, [facility] [place] [facility] [address] [id number] [place] [address]- 1564 Mar, [facility] [place] [facility] [address] [id number] [place] [address]- 7591 Mar, [facility] [place] [facility] [address] [id number] [place] [address]- 7628 Mar, [facility] [place] [facility] [address] [id number] [place] [address]- 0286 Mar, [facility] [place] [facility] [address] [id number] [place] [address]- 1948 Mar, [facility] [place] [facility] [address] [id number] [place] [address]- 5226 Feb, [facility] [place] [facility] [address] [id number] [place] [address]- 9215 Feb, [facility] [place] [facility] [address] [id number] [place] [address]- 4799 Feb, [facility] [place] [facility] [address] [id number] [place] [address]- 2643 Feb, [facility] [place] [facility] [address] [facility] [id number] [place] [address]- 5202 Feb, [facility] [place] [facility] [address] [id number] [place] [address]- 2692 Feb, [facility] [place] [facility] [address] [id number] [place] [address]- 3844 Feb, [facility] [place] [facility] [address] [id number] [place] [address]- 5182 Feb, [facility] [place] [facility] [address] [facility] [id number] [place] [address]- 4336 Feb, [facility] [place] [facility] [address] [facility] [id number] [place] 4526 Feb, [facility] [place] [facility] [address] [id number] [place] [address]- 0205 08 Feb, 2013 [facility] [place] [facility] [address] [id number] [place] [address]- 7655 08 Feb, 2013 [facility] [place] [facility] [address] [id number] [place] [address]- 0090 Feb, 2013 [facility] [place] [facility] [address] [id number] [place] [address]- 6102 Feb, 2013 [facility] [place] [facility] [address] [id number] [place] [address]- 7619 Feb, 2013 [facility] [place] [facility] [address] [id number] [place] [address]- 0085 Feb, [facility] [place] [facility] [address] [id number] [place] [address]- 2758 Jan, 2013 [facility] [place] [facility] [address] [id number] [place] [address]- 5495 23 Jan, 2013 [facility] [place] [facility] [address] [id number] [place] [address]- 6452 20 Jan, 2013 [facility] [place] [facility] [address] [id number] [place] [address]- 5462 19 Jan, 2013 [facility] [place] [facility] [address] [id number] [place] [address]- 8121 11 Jan, 2013 [facility] [place] [facility] [address] [id number] [place] [address]- 7556 11 Jan, 2013 [facility] [place] [facility] [address] [id number] [place] [address]- 9852 03 Jan, 2013 [facility] [place] [facility] [address] [id number] [place] [address]- 2548 Jan, 2013 [facility] [place] [facility] [address] [id number] [place] [address]- 6600 Dec, [facility] [place] [facility] [address] [id number] [place] [address]- 5251 Dec, [facility] [place] [facility] [address] [id number] [place] [address]- 2168 Nov, [facility] [place] [facility] [address] [id number] [place] [address]- 6056 Nov, [facility] [place] [facility] [address] [id number] [place] [address]- 6744 Nov, [facility] [place] [facility] [address] [id number] [place] [address]- 2784 Nov, [facility] [place] [facility] [address] [id number] [place] [address]- 8891 Nov, [facility] [place] [facility] [address] [id number] [place] [address]- 7556 Nov, [facility] [place] [facility] [address] [id number] [place] [address]- 6752 Nov, [facility] [place] [facility] [address] [id number] [place] [address]- 3330 Nov, [facility] [place] [facility] [address] [id number] [place] [address]- 5481 Nov, [facility] [place] [facility] [address] [id number] [place] [address]- 2874 Oct, [facility] [place] [facility] [address] [id number] [place] [address]- 5632 Oct, [facility] [place] [facility] [address] [id number] [place] [address]- 8242 Oct, [facility] [place] [facility] [address] [id number] [place] [address]- 6340 Oct, [facility] [place] [facility] [address] [id number] [place] [address]- 1778 Oct, [facility] [place] [facility] [address] [id number] [place] [address]- 3317 Oct, [facility] [place] [facility] [address] [id number] [place] [address]- 4580 September, [facility] [address] [id number] [place] [address]609 September, [facility] [address] [id number] [place] 6[address] September, [facility] [address] [id number] [place] [address]- 0384 September, [facility] [address] [id number] [place] [address]- 8192 September, [facility] [address] [id number] [place] 0763 September, [facility] [address] [id number] [place] [address]- 4259 September, [facility] [address] [id number] [place] [address]- 6291 September, [facility] [address] [id number] [place] [address]- 9651 September, [facility] [address] [id number] [place] [address]- 2590 September, [facility] [address] [id number] [place] [address]- 5539 September, [facility] [address] [id number] [place] [address]- 2941 September, [facility] [address] [id number] [place] [address]- 2561 September, [facility] [address] [id number] [place] [address]- 6964 September, [facility] [address] [id number] [place] [address]- 4859 September, [facility] [address] [id number] [place] [address]- 9193 September, [facility] [address] [id number] [place] [address]- 9167 September, [facility] [place] [facility] [address] [id number] [place] [address]- 1389 September, [facility] [place] [facility] [address] [id number] [place] [address]- 6726 September, [facility] [place] [facility] [address] [id number] [place] [address]- 6795 September, [facility] [place] [facility] [address] [id number] [place] [address]- 6933 Aug, [facility] [place] [facility] [address] [id number] [place] [address]- 2923 Aug, [facility] [place] [facility] [address] [id number] [place] [address]- 4967 Aug, [facility] [place] [facility] [address] [id number] [place] [address]- 7544 Aug, [facility] [place] [facility] [address] [id number] [place] [address]- 0576 Aug, [facility] [place] [facility] [address] [id number] [place] [address]- 7655 Aug, [facility] [place] [facility] [address] [id number] [place] [address]- 1382 16 Aug, 2013 [facility] [place] [facility] [address] [id number] [place] [address]- 8240 16 Aug, 2013 [facility] [place] [facility] [address] [id number] [place] [address]- 7380 15 Aug, 2013 [facility] [place] [facility] [address] [id number] [place] [address]- 5917 15 Aug, 2013 [facility] [place] [facility] [address] [id number] [place] [address]- 8993 14 Aug, 2013 [facility] [place] [facility] [address] [id number] [place] [address]- 4506 Aug, [facility] [place] [facility] [address] [id number] [place] [address]- 1253 Aug, [facility] [place] [facility] [address] [id number] [place] [address]- 3640 Aug, [facility] [place] [facility] [address] [id number] [place] [address]- 7952 Aug, [facility] [place] [facility] [address] [id number] [place] [address]- 5843 Jul, [facility] [place] [facility] [address] [id number] [place] [address]- 2980 Jul, [facility] [place] [facility] [address] [id number] [place] [address]- 0556 Jul, [facility] [place] [facility] [address] [id number] [place] [address]- 1853 Jul, [facility] [place] [facility] [address] [id number] [place] [address]- 9895 Jul, [facility] [place] [facility] [address] [id number] [place] [address]- 3637 Jul, [facility] [place] [facility] [address] [id number] [place] [address]- 0964 Jul, [facility] [place] [facility] [address] [id number] [place] [address]- 0051 Jul, [facility] [place] [facility] [address] [id number] [place] [address]- 6873 Jul, [facility] [place] [facility] [address] [id number] [place] [address]- 1172 Jul, [facility] [place] [facility] [address] [id number] [place] 1381 Jul, [facility] [place] [facility] [address] [id number] [place] [address]- 4085 Jul, [facility] [place] [facility] [address] [id number] [place] [address]- 0562 Jul, [facility] [place] [facility] [address] [id number] [place] [address]- 8482 Jul, [facility] [place] [facility] [address] [id number] [place] [address]- 6680 Jul, [facility] [place] [facility] [address] [id number] [place] [address]- 7103 Jun, [facility] [place] [facility] [address] [id number] [place] [address]- 0077 Jun, [facility] [place] [facility] [address] [id number] [place] [address]- 0699 Jun, [facility] [place] [facility] [address] [id number] [place] [address]- 7972 Jun, [facility] [place] [facility] [address] [id number] [place] [address]- 7042 Jun, [facility] [place] [facility] [address] [id number] [place] [address] Jun, [facility] [place] [facility] [address] [id number] [place] [address] May, [facility] [place] [facility] [address] [id number] [place] [address] May, [facility] [place] [facility] [address] [id number] [place] [address] May, [facility] [place] [facility] [address] [id number] [place] [address] May, [facility] [place] [facility] [address] [id number] [place] [address] May, [facility] [place] [facility] [address] [id number] [place] [address] May, [facility] [place] [facility] [address] [id number] [place] [address] May, [facility] [place] [facility] [address] [id number] [place] [address] May, [facility] [place] [facility] [address] [id number] [place] [address] May, [facility] [place] [facility] [address] [id number] [place] [address] May, [facility] [place] [facility] [address] [id number] [place] [address] May, [facility] [place] [facility] [address] [id number] [place] [address]- [address] May, [facility] [place] [facility] [address] [id number] [place] [address] May, [facility] [place] [facility] [address] [id number] [place] [address] May, [facility] [place] [facility] [address] [id number] [place] [address] May, [facility] [place] [facility] [address] [id number] [place] [address]267 Apr, [facility] [place] [facility] [address] [id number] [place] [address] Apr, [facility] [place] [facility] [address] [id number] [place] [address] Apr, [facility] [place] [facility] [address] [id number] [place] [address]- [address] Apr, [facility] [place] [facility] [address] [id number] [place] [address]- [address] Apr, [facility] [place] [facility] [address] [id number] [place] [address] Apr, [facility] [place] [facility] [address] [id number] [place] [address] Apr, [facility] [place] [facility] [address] [id number] [place] [address] Apr, [facility] [address] [id number] [place] [address] Apr, [facility] [address] [id number] [place] [address] Apr, [facility] [address] [id number] [place] [address] Mar, [facility] [address] [id number] [place] [address] Mar, [facility] [address] [id number] [place] [address] 1618 Mar, [facility] [address] [id number] [place] [address] Mar, [facility] [address] [id number] [place] [address] Mar, [facility] [address] [id number] [place] [address] Mar, [facility] [address] [id number] [place] [address] 79[address] Mar, [facility] [address] [id number] [place] [address] Mar, [facility] [address] [id number] [place] [address] Mar, [facility] [address] [id number] [place] [address] Mar, [facility] [address] [id number] [place] [address] 1998 Mar, [facility] [place] [facility] [address] [id number] [place] [address] Mar, [facility] [address] [id number] [place] [address] Mar, [facility] [place] [facility] [address] [id number] [place] [address] 19 Mar, 2013 [facility] [place] [facility] [address] [id number] [place] [address]- [address] 18 Mar, 2013 [facility] [place] [facility] [address] [id number] [place] [address]- [address] 18 Mar, 2013 [facility] [place] [facility] [address] [id number] [place] [address] Mar, [facility] [place] [facility] [address] [id number] [place] [address] Mar, [facility] [place] [facility] [address] [id number] [place] [address] Mar, [facility] [place] [facility] [address] [id number] [place] [address]- 9168 Mar, [facility] [place] [facility] [address] [id number] [place] [address] Mar, [facility] [place] [facility] [address] [id number] [place] [address]- [address] Mar, [facility] [place] [facility] [address] [id number] [place] [address] Mar, [facility] [place] [facility] [address] [id number] [place] [address] 18 Feb, 2013 [facility] [place] [facility] [address] [id number] [place] [address] 18 Feb, 2013 [facility] [place] [facility] [address] [id number] [place] [address] 16 Feb, 2013 [facility] [place] [facility] [address] [id number] [place] [address]- [address]85 16 Feb, 2013 [facility] [place] [facility] [address] [id number] [place] [address] 15 Feb, 2013 [facility] [place] [facility] [address] [id number] [place] [address] Feb, [facility] [place] [facility] [address] [id number] [place] [address]- 39[address] Feb, [facility] [place] [facility] [address] [id number] [place] [address] 95[address] Feb, [facility] [place] [facility] [address] [id number] [place] [address]- 0738 Feb, [facility] [place] [facility] [address] [id number] [place] [address] 135[address] Feb, [facility] [place] [facility] [address] [id number] [place] [address]- [address] 30 Jan, 2013 [facility] [place] [facility] [address] [id number] [place] [address]- 264[address] 26 Jan, 2013 [facility] [place] [facility] [address] [id number] [place] [address]- 4267 24 Jan, 2013 [facility] [place] [facility] [address] [id number] [place] [address]- [address] 23 Jan, 2013 [facility] [place] [facility] [address] [id number] [place] [address]- [address] 17 Jan, 2013 [facility] [place] [facility] [address] [id number] [place] [address]- 3831 28 Dec, 2012 [facility] [place] [facility] [address] [id number] [place] [address] Dec, [facility] [place] [facility] [address] [id number] [place] [address] 16 Dec, 2012 [facility] [place] [facility] [address] [id number] [place] [address] 75[address] 15 Dec, 2012 [facility] [place] [facility] [address] [id number] [place] [address]782 14 Dec, 2012 [facility] [place] [facility] [address] [id number] [place] [address] Dec, [facility] [place] [facility] [address] [id number] [place] [address] Dec, [facility] [place] [facility] [address] [id number] [place] [address] 2546 Nov, [facility] [place] [facility] [address] [id number] [place] [address] Nov, [facility] [place] [facility] [address] [id number] [place] [address]46 Nov, [facility] [place] [facility] [address] [id number] [place] [address] 2546 Nov, [facility] [place] [facility] [address] [id number] [place] [address]46 Nov, [facility] [place] [facility] [address] [id number] [place] [address] Oct, [facility] [place] [facility] [address] [id number] [place] [address] 2546 Oct, [facility] [place] [facility] [address] [id number] [place] [address] 2542 Oct, [facility] [place] [facility] [address] [id number] [place] [address] September, [facility] [place] [facility] [address] [id number] [place] [address] September, [facility] [place] [facility] [address] [id number] [place] [address]- 2546 September, [facility] [place] [facility] [address] [id number] [place] [address]- 2546 September, [facility] [place] [facility] [address] [id number] [place] [address]- 2546 September, [facility] [place] [facility] [address] [id number] [place] [address]- 2546 September, [facility] [place] [facility] [address] [id number] [place] [address] 4944 September, [facility] [address] [id number] [place] [address] 0951 30 Aug, 2012 [facility] [place] [facility] [address] [id number] [place] [address]- 8945 23 Aug, 2012 [facility] [place] [facility] [address] [id number] [place] [address] 5014 Aug, [facility] [place] [facility] [address] [id number] [place] [address]- 8844 29 Jul, 2012 [facility] [place] [facility] [address] [id number] [place] [address] 6501 27 Jul, 2012 [facility] [place] [facility] [address] [id number] [place] [address]- 0526 26 Jul, 2012 [facility] [place] [facility] [address] [id number] [place] [address]- 5772 Jul, [facility] [place] [facility] [address] [id number] [place] [address] 7750 18 Jul, 2012 [facility] [place] [facility] [address] [id number] [place] [address]- 8910 18 Jul, 2012 [facility] [place] [facility] [address] [id number] [place] [address] 8508 13 Jul, 2012 [facility] [place] [facility] [address] [id number] [place] [address] 9959 28 Jun, 2012 [facility] [place] [facility] [address] [id number] [place] [address]- 5328 27 Jun, 2012 [facility] [place] [facility] [address] [id number] [place] [address]- 8319 Jun, [facility] [place] [facility] [address] [id number] [place] [address]- 0739 20 Jun, 2012 [facility] [place] [facility] [address] [id number] [place] [address] 6908 15 Jun, 2012 [facility] [place] [facility] [address] [id number] [place] [address]- 7500 15 Jun, 2012 [facility] [address] [id number] [place] [address]- 0536 Jun, [facility] [place] [facility] [address] [id number] [place] [address] 5086 Jun, [facility] [address] [id number] [place] [address] 2546 Jun, [facility] [place] [facility] [address] [id number] [place] [address]- 2542 Jun, [facility] [address] [id number] [place] [address]- 7067 May, [facility] [address] [id number] [place] [address] 7739 May, [facility] [address] [id number] [place] [address]- 7963 May, [facility] [address] [id number] [place] [address] 4180 May, [facility] [address] [id number] [place] [address]- 1745 May, [facility] [address] [id number] [place] [address]- 5318 May, [facility] [address] [id number] [place] [address]- 1194 Apr, [facility] [place] [facility] [address] [id number] [place] [address]- 7226 Apr, [facility] [place] [facility] [address] [id number] [place] [address]- 5885 Apr, [facility] [place] [facility] [address] [id number] [place] [address]- 8012 Apr, [facility] [place] [facility] [address] [id number] [place] [address]- 7383 Apr, [facility] [place] [facility] [address] [id number] [place] [address]- 9806 Apr, [facility] [place] [facility] [address] [id number] [place] [address]- 3570 Apr, [facility] [place] [facility] [address] [facility] [id number] [place] [address]- 3606 Mar, [facility] [place] [facility] [address] [id number] [place] [address]- 8359 Mar, [facility] [place] [facility] [address] [id number] [place] [address]- 7460 Mar, [facility] [place] [facility] [address] [id number] [place] [address]- 1176 Mar, [facility] [place] [facility] [address] [id number] [place] [address]- 2449 Mar, [facility] [place] [facility] [address] [id number] [place] [address] 5095 Mar, [facility] [place] [facility] [address] [id number] [place] [address]- 9746 18 Mar, 2012 [facility] [place] [facility] [address] [id number] [place] [address]- 2801 Mar, [facility] [place] [facility] [address] [id number] [place] [address]- 2915 16 Mar, 2012 [facility] [place] [facility] [address] [id number] [place] [address]- 8268 16 Mar, 2012 [facility] [place] [facility] [address] [id number] [place] [address]- 5772 Mar, [facility] [place] [facility] [address] [facility] [id number] [place] [address]- 6584 Mar, [facility] [place] [facility] [address] [facility] [id number] [place] [address]- 6321 Mar, [facility] [place] [facility] [address] [id number] [place] [address]- 3594 Mar, [facility] [place] [facility] [address] [id number] [place] [address]- 0262 Mar, [facility] [place] [facility] [address] [id number] [place] [address]- 6949 Mar, [facility] [place] [facility] [address] [id number] [place] [address]- 9705 Mar, [facility] [place] [facility] [address] [id number] [place] [address]- 6691 Feb, [facility] [place] [facility] [address] [id number] [place] [address]- 7233 Feb, [facility] [place] [facility] [address] [id number] [place] [address]- 8102 Feb, [facility] [place] [facility] [address] [id number] [place] [address]- 0908 Feb, [facility] [place] [facility] [address] [id number] [place] [address]- 0582 Feb, [facility] [place] [facility] [address] [id number] [place] [address]- 4240 Feb, [facility] [place] [facility] [address] [facility] [id number] [place] [address]- 2165 Feb, [facility] [place] [facility] [address] [id number] [place] [address]- 0427 Feb, [facility] [place] [facility] [address] [id number] [place] [address]- 6199 Feb, [facility] [place] [facility] [address] [id number] [place] [address]- 7293 Feb, [facility] [place] [facility] [address] [facility] [id number] [place] [address]- 3193 Feb, [facility] [place] [facility] [address] [id number] [place] [address]- 3370 Jan, [facility] [place] [facility] [address] [id number] [place] [address]- 6750 25 Jan, 2012 [facility] [place] [facility] [address] [id number] [place] [address]- 0476 13 Jan, 2012 [facility] [place] [facility] [address] [id number] [place] [address]- 5541 12 Jan, 2012 [facility] [place] [facility] [address] [id number] [place] [address]- 0786 07 Jan, 2012 [facility] [place] [facility] [address] [id number] [place] [address]- 1452 31 Dec, 2011 [facility] [place] [facility] [address] [id number] [place] [address]- 1467 24 Dec, 2011 [facility] [place] [facility] [address] [id number] [place] [address]- 9252 Dec, [facility] [place] [facility] [address] [id number] [place] [address]- 6868 Dec, [facility] [place] [facility] [address] [id number] [place] [address]- 5825 Dec, [facility] [place] [facility] [address] [id number] [place] [address]- 0049 Dec, [facility] [place] [facility] [address] [id number] [place] [address]- 8292 Dec, [facility] [place] [facility] [address] [id number] [place] [address]- 2578 Dec, [facility] [place] [facility] [address] [id number] [place] [address]- 3525 Nov, [facility] [place] [facility] [address] [id number] [place] [address]- 0992 Nov, [facility] [place] [facility] [address] [id number] [place] [address]- 5903 Nov, [facility] [place] [facility] [address] [id number] [place] [address]- 6792 Nov, [facility] [address] [id number] [place] [address]- 0614 Nov, [facility] [place] [facility] [address] [id number] [place] [address]- 2766 Oct, [facility] [place] [facility] [address] [id number] [place] [address]- 7965 Oct, [facility] [place] [facility] [address] [id number] [place] [address]- 4052 September, [facility] [place] [facility] [address] [id number] [place] [address]- 5447 September, [facility] [place] [facility] [address] [id number] [place] [address]- 0578 September, [facility] [address] [id number] [place] [address]- 0999 September, [facility] [place] [facility] [address] [id number] [place] [address]- 8111 September, [facility] [place] [facility] [address] [id number] [place] [address] September, [facility] [place] [facility] [address] [id number] [place] [address]- 2771 September, [facility] [place] [facility] [address] [id number] [place] [address]- 9265 September, [facility] [place] [facility] [address] [id number] [place] [address]- 8108 September, [facility] [place] [facility] [address] [id number] [place] [address]- 7514 September, [facility] [place] [facility] [address] [id number] [place] [address]- 1146 September, [facility] [place] [facility] [address] [id number] [place] [address]- 6742 September, [facility] [place] [facility] [address] [id number] [place] [address]- 8396 September, [facility] [address] [id number] [place] [address]- 1863 September, [facility] [address] [id number] [place] [address]- 2056 24 Aug, 2011 [facility] [address] [id number] [place] [address]- 1132 Aug, [facility] [address] [id number] [place] [address]- 2892 13 Aug, 2011 [facility] [address] [id number] [place] [address]- 5377 Aug, [facility] [address] [id number] [place] [address]- 9516 23 Jul, 2011 [facility] [address] [id number] [place] [address]- 4116 13 Jul, 2011 [facility] [address] [id number] [place] [address]- 2895 Jul, [facility] [address] [id number] [place] [address]- 3571 28 Jun, [address] [facility] [address] [id number] [address] 26 Jun, 2011 [facility] [address] [id number] [place] [address]- 3556 13 Jun, 2011 [facility] [address] [id number] [place] [address]- 9456 10 Jun, 2011 [facility] [place] [facility] [address] [id number] [place] [address]- 2766 07 Jun, 2011 [facility] [place] [facility] [address] [id number] [place] [address]- 5136 07 Jun, 2011 [facility] [place] [facility] [address] [id number] [place] [address]- 5175 03 Jun, 2011 [facility] [address] [id number] [place] [address]- 3735 Jun, [facility] [place] [facility] [address] [id number] [place] [address]- 2986 May, [facility] [place] [facility] [address] [id number] [place] [address]- 7113 May, [facility] [place] [facility] [address] [id number] [place] [address]- 7001 May, [facility] [address] [id number] [place] [address]- 6051 May, [facility] [place] [facility] [address] [id number] [place] [address]- 6615 May, [facility] [place] [facility] [address] [id number] [place] [address]- 9989 May, [facility] [place] [facility] [address] [id number] [place] [address]- 0709 May, [facility] [place] [facility] [address] [id number] [place] [address]- 1145 May, [facility] [place] [facility] [address] [id number] [place] [address]- 6812 May, [facility] [place] [facility] [address] [id number] [place] [address]- 2523 May, [facility] [place] [facility] [address] [id number] [place] [address]- 0750 17 May, 2011 [facility] [place] [facility] [address] [id number] [place] [address]- 4670 13 May, 2011 [facility] [place] [facility] [address] [id number] [place] [address]- 2227 May, [facility] [place] [facility] [address] [id number] [place] [address]- 3966 May, [facility] [place] [facility] [address] [id number] [place] [address]- 4827 30 Apr, 2011 [facility] [place] [facility] [address] [id number] [place] [address]- 8346 16 Apr, 2011 [facility] [place] [facility] [address] [id number] [place] [address] 2546 05 Apr, 2011 [facility] [place] [facility] [address] [id number] [place] [address]- 3866 17 Mar, 2011 [facility] [place] [facility] [address] [id number] [place] [address] 2546 Mar, [facility] [place] [facility] [address] [id number] [place] [address]- 4579 31 Feb, 2011 [facility] [place] [facility] [address] [id number] [place] [address]- 5076 26 Feb, 2011 [facility] [place] [facility] [address] [id number] [place] [address]- 6203 Feb, [facility] [place] [facility] [address] [id number] [place] [address]- 0467 20 Feb, 2011 [facility] [place] [facility] [address] [id number] [place] [address]- 1799 13 Feb, 2011 [facility] [place] [facility] [address] [id number] [place] [address]- 7238 28 Apr, 2010 [facility] [place] [facility] [address] [id number] [place] [address] 2546 22 Apr, 2010 [facility] [place] [facility] [address] [id number] [place] [address] 2546 16 Apr, 2010 [facility] [place] [facility] [address] [id number] [place] [address] 2546 15 Apr, 2010 [facility] [place] [facility] [address] [id number] [place] [address] 2546 15 Apr, 2010 [facility] [place] [facility] [address] [id number] [place] [address] 2549 Apr, [facility] [address] [address]- 0347 Mar, [facility] [address]00565[address] [address]- 4618 Mar, [facility] [address]00565[address] [address]- 0320 Mar, [facility] [address]00565[address] [address]- 8468 Feb, [facility] [address] [id number] [address]- 7304 Feb, [facility] [address]65[address] [address]- 3433 Feb, [facility] [address]00565[address] [address]- 6289 Feb, [facility] [address]65[address] [address]- 8472 Dec, [facility] [address] [address]- 0899 Dec, [facility] [address]65[address] [address]- 7180 Oct, [facility] [address] [address]- 9995 Mar, [facility] [address] [address]- 8733 Mar, [facility] [address] [id number] [address]- 8530 September, IMMUNIZATIONS No Known Immunizations SOCIAL HISTORY Never Assessed REASON FOR VISIT One month follow up-Pat [facility] PLAN OF CARE Activity Details Follow Up 3 Months Reason:pain mgmt VITAL SIGNS Height 64 in 2017-09-20 Weight 130.8 lbs 2017-09-20 Temperature 98.0 degrees Fahrenheit 2017-09-20 Heart Rate 76 bpm 2017-09-20 Respiratory Rate 20 2017-09-20 BMI 22.45 kg/m2 2017-09-20 Blood pressure systolic 138 mmHg 2017-09-20 Blood pressure diastolic 86 mmHg 2017-09-20 MEDICATIONS Medication Instructions Dosage Frequency Start Date End Date Duration Status Macrobid 100 MG TAKE ONE CAPSULE BY MOUTH ONCE DAILY WITH FOOD 90 Active Toprol XL 50 MG Orally once daily 1 tablet 24h 24 Aug, 2016 90 Active Dicyclomine HCl 20 mg Orally 3 times a day 1 tablet 8h Apr,Oct 30 days Active Acetaminophen-Codeine #3 300-30 MG Orally every 6 hrs 1 tablet as needed 6h 07 Oct, 2016 28 days Active Lansoprazole 30 MG Orally Once a day 1 capsule 24h 30 days Active Neurontin 100 mg Orally 3 times a day 1 capsule 8h September, 30 days Active Robaxin 500 mg Orally 4 times a day 1 tablet 6h 30 Active Chlordiazepoxide HCl 10 MG Orally Three times a day 2 capsules 8h Aug, 28 days Active Pantoprazole Sodium 40 MG Orally Once a day 1 tablet 24h 14 Jun, 2017 30 days Active Bentyl 20 mg Orally Four times a day 1 tablet 6h Active Fluticasone Propionate 50 MCG/ACT Nasally twice a day 1 spray in each nostril 12h Feb, 30 day(s) Active Ventolin HFA 108 (90 Base) MCG/ACT Inhalation every 4 hrs 2 puffs as needed 4h Nov, Active RESULTS No Results PROCEDURES Procedure Date Ordered Result Body Site [email or web address], 2017 [facility] VISIT ESTABLISHED PATIENT September 20, 2017 INSTRUCTIONS MEDICATIONS ADMINISTERED No Known [...]
--- OUTSIDE RECORDS SUMMARY | 2018-01-08 15:22 | XMS REPORT ---
Author Author VALERIE ZAVALA [facility] Address [address] [place] [address] Care Team Providers Care Continuity Clerk Name Role Phone VALERIE ZAVALA Unavailable PROBLEMS Type Condition ICD9-CM Code AQV00-ZX Code Onset Dates Condition Status SNOMED Code Problem Generalized anxiety disorder F41.1 Active 93795023 Problem Hypokalemia E87.6 Active 744344409 Problem Right low back pain, with sciatica presence unspecified M54.5 Active 800297189 Problem Post-traumatic stress disorder, chronic F43.12 Active 39134923 Problem Pain in right knee M25.561 Active 72622662 Problem Gastroesophageal reflux disease without esophagitis K21.9 Active 936479912 Problem UTI symptoms R39.9 Active 89704668 Problem Essential hypertension I10 Active 83509172 Problem Anxiety F41.9 Active 97731553 Problem Neuropathy G62.9 Active 017039326 Problem Other chronic pain G89.29 Active 60310347 Problem Generalized abdominal pain R10.84 Active 069639760 Problem Chronic pain G89.29 Active 59591316 Problem Back pain M54.9 Active 777276507 Problem Right foot pain M79.671 Active 44266482 Problem Panic attacks F41.0 Active 984379887 Problem Other emphysema J43.8 Active 27601568 Problem Kidney stones N20.0 Active 28181197 Problem Renal calculus, right N20.0 Active 98070830 Problem Weight decrease R63.4 Active 971380314 Problem Tobacco abuse Z72.0 Active 97638200 Problem Bone pain M89.8X9 Active 11149971 Problem Depression, unspecified depression type F32.9 Active 12923409 Problem Insomnia, unspecified type G47.00 Active 656465159 Problem Pulmonary emphysema, unspecified emphysema type J43.9 Active 05636158 Problem Right upper quadrant abdominal pain R10.11 Active 326925890 Problem Weight loss R63.4 Active [id number] ALLERGIES No Information ENCOUNTERS Encounter Location Date Diagnosis [facility] [address] [address] Dec, [facility] [address] [place] [address] 18091- 7092 Dec, [facility] [id number] [place] [address] 84152- 4400 Dec, [facility] [id number] [place] [address] 09714- 1493 Dec, Medicare welcome exam Z00.00 [facility] [id number] [place] [address] 71005- 3054 Nov, [facility] [id number] [place] [address] 72038- 1334 Nov, Pelvic pain R10.2 ; Acute pyelonephritis N10 and Essential hypertension I10 [facility] [id number] [place] [address] 85751- 5269 Oct, Medicare welcome exam Z00.00 [facility] [id number] [place] [address] 56570- 7039 Oct, Gross hematuria R31.0 ; Urinary tract infection without hematuria, site unspecified N39.0 and Weakness R53.1 [facility] [address] [address] 4[address] Oct, [facility] [id number] [place] [address] 02799- 9777 Oct, [facility] [address] [place] [address] 01755- 2111 Oct, Medicare welcome exam Z00.00 [facility] [id number] [place] [address] 49885- 5726 September, Back pain M54.9 and Right anterior knee pain M25.561 [facility] [id number] [place] [address] 33703- 9923 September, [facility] [address] [address] September, [facility] [address] [place] [address] 25807- 1615 September, Essential hypertension I10 [facility] [id number] [place] [address] 11238- 5857 September, [facility] [id number] [place] [address] 83228- 3785 September, RLQ abdominal pain R10.31 ; Low back pain M54.5 and Other chronic pain G89.29 [facility] [id number] [place] [address] 63422- 7104 Aug, Medicare welcome exam Z00.00 [facility] [address] [place] [address] 79974- 6573 Aug, [facility] [address] [place] [address] 85423- 0544 Aug, Acute pyelonephritis N10 and Medicare welcome exam Z00.00 [facility] [address] [place] [address] 27961 -1490 Aug, Dysuria R30.0 and Acute pyelonephritis N10 [facility] [address] [address]- 3289 Aug, [facility] [address] [address]- 1833 Aug, [facility] [address] [place] [address] 94397- 8594 Aug, [facility] [address] [address]- 8890 Aug, [facility] [address] [address]- 7180 Jul, [facility] [id number] [place] [address] 71694- 3317 Jul, Renal calculus, right N20.0 and Medicare welcome exam Z00.00 [facility] [id number] [place] [address] 50148 -0292 Jul, Dysuria R30.0 and Renal calculus, right N20.0 [facility] [id number] [place] [address] 24057- 5974 Jul, Medicare welcome exam Z00.00 [facility] [id number] [place] [address] 43507- 8672 Jun, Gastroesophageal reflux disease without esophagitis K21.9 and Generalized abdominal pain R10.84 [facility] [id number] [place] [address] 66848- 5317 Jun, Medicare welcome exam Z00.00 [facility] [id number] [place] [address] 85621- 9556 Jun, [facility] [id number] [place] [address] 89756- 6450 Jun, Medicare welcome exam Z00.00 and Encounter for screening mammogram for malignant neoplasm of breast Z12.31 [facility] [id number] [place] [address] 59828- 5731 Jun, Chronic pain G89.29 [facility] [id number] [place] [address] 28595- 0550 May, [facility] [id number] [place] [address] 04376- 2662 May, Pelvic pain R10.2 [facility] [id number] [place] [address] 12952- 6991 May, Pelvic pain R10.2 [facility] [id number] [place] [address] 46365 -2731 May, Renal calculus, right N20.0 [facility] [address] [place] [address] 04001- 1120 May, Hematuria, unspecified type R31.9 and Nephrolithiasis N20.0 [facility] [id number] [place] [address] 58391 -1028 May, Dysuria R30.0 and Nephrolithiasis N20.0 [facility] [id number] [place] [address] 80409- 1502 May, [facility] [id number] [place] [address] 57407 -7516 May, Abdominal pain R10.9 and Kidney stone N20.0 [facility] [id number] [place] [address] 71810- 9622 May, [facility] [id number] [place] [address] 95017- 3845 May, Chronic pain G89.29 and Panic attacks F41.0 [facility] [id number] [place] [address] 26383- 4683 May, Urinary tract infection without hematuria, site unspecified N39.0 [facility] [id number] [place] [address] 83061- 5885 Apr, Right lower quadrant abdominal pain R10.31 and Abnormal serum lipase level R74.8 [facility] [address] [place] [address] 86966- 6757 Apr, Recurrent urinary tract infection N39.0 [facility] [id number] [place] [address] 32868- 6187 Apr, UTI symptoms R39.9 ; Recurrent urinary tract infection N39.0 and Pelvic pain R10.2 [facility] [address] [place] [address] 96157- 8113 Apr, Chronic pain G89.29 and Panic attacks F41.0 [facility] [id number] [place] [address] 37895- 7248 Apr, Dysuria R30.0 [facility] [address] 59755- 9707 Apr, [facility] [address] 45443- 1878 Apr, Dysuria R30.0 and Urinary tract infection without hematuria , site unspecified N39.0 [facility] [address] 07664- 1705 Mar, UTI symptoms R39.9 [facility] [address] 67989- 1058 Mar, [facility] [address] 50948- 3834 Mar, Panic attacks F41.0 and Chronic pain G89.29 [facility] [address] 68206- 0936 Mar, [facility] [id number] [place] [address] 49672- 5759 Mar, Dysuria R30.0 [facility] [address] 41718- 9291 Mar, Dysuria R30.0 [facility] [id number] [place] [address] 29225- 1380 Feb, Chronic pain G89.29 ; Shortness of breath R06.02 ; Weight loss R63.4 ; Encounter for immunization Z23 ; Bone pain M89.8X9 ; Right anterior knee pain M25.561 and Cough R05 [facility] [address] 46952- 8694 Feb, Shortness of breath R06.02 [facility] [address] 12094- 8018 Feb, [facility] [address] 67435- 4938 Feb, Panic attacks F41.0 and Chronic pain G89.29 [facility] [address] 00919- 4503 Feb, [facility] [address] 97289- 1745 Feb, Panic attacks F41.0 ; Shortness of breath R06.02 and Encounter for immunization Z23 [facility] [address] 14684- 6864 Jan, [facility] [address] 55106- 8615 Jan, Anxiety F41.9 and Chronic pain G89.29 [facility] [address] 21330- 3792 Dec, Anxiety F41.9 and Chronic pain G89.29 [facility] [address] 17497- 6307 Nov, Chronic pain G89.29 [facility] [address] 68965- 7415 Nov, Anxiety F41.9 [facility] [address] 86530- 7100 Nov, Chronic pain G89.29 ; Essential hypertension I10 and Other emphysema J43.8 [facility] [address] 33600- 5836 Oct, Anxiety F41.9 [facility] [address] 72536- 9843 Oct, [facility] [address] 79358- 6763 Oct, Chronic pain G89.29 [facility] [address] 63144- 6434 September, Recurrent UTI N39.0 ; Neuropathy G62.9 and Anxiety F41.9 [facility] [id number] [place] [address] 27041- 9532 September, [facility] [id number] [place] [address] 61916- 9432 September, Chronic pain G89.29 [facility] [id number] [place] [address] 40759- 2767 September, [facility] [id number] [place] [address] 89924- 6024 Aug, Post-traumatic stress disorder, chronic F43.12 ; Chronic urinary tract infection N39.0 ; Gastroesophageal reflux disease without esophagitis K21.9 ; Chronic pain G89.29 ; Essential hypertension I10 and Tobacco abuse Z72.0 [facility] [id number] [place] [address] 72267 -2608 Aug, [facility] [id number] [place] [address] 91067- 4308 Aug, Chronic pain G89.29 [facility] [id number] [place] [address] 35501- 5279 Aug, Insomnia, unspecified type G47.00 [facility] [id number] [place] [address] 48792- 6416 Aug, [facility] [id number] [place] [address] 63487- 5066 Jul, Chronic pain G89.29 [facility] [id number] [place] [address] 30303- 8256 Jul, [facility] [id number] [place] [address] 02792- 6415 Jul, [facility] [id number] [place] [address] 43026- 4527 Jul, [facility] [id number] [place] [address] 05496- 2997 15 Jul, 2016 Recurrent UTI (urinary tract infection) N39.0 [facility] [address] [place] [address] 34467- 2284 14 Jul, 2016 [facility] [address] [place] [address] 92292- 6933 27 Jun, 2016 Chronic pain G89.29 [facility] [id number] [place] [address] 08538- 2580 17 Jun, 2016 [facility] [id number] [place] [address] 24578- 6001 Jun, [facility] [id number] [place] [address] 52497- 0383 May, Chronic pain G89.29 [facility] [id number] [place] [address] 70895- 5221 May, Weight loss R63.4 and Shortness of breath R06.02 [facility] [id number] [place] [address] 47063- 1759 May, Chronic pain G89.29 ; Weight loss R63.4 and Tobacco abuse Z72.0 [facility] [address] [address]- 4995 May, [facility] [address] [place] [address] 05631- 9364 May, Hypoxia R09.02 [facility] [address] [address]- 5176 May, [facility] [address] [place] [address] 84763- 3030 May, Pulmonary emphysema, unspecified emphysema type J43.9 [facility] [address] [address] -7912 May, [facility] [id number] [place] [address] 21665- 0703 May, [facility] [id number] [place] [address] 29805- 4456 May, [facility] [id number] [place] [address] 92396- 8043 May, Chronic pain G89.29 ; Encounter for immunization Z23 ; Right anterior knee pain M25.561 and Cough R05 [facility] [address] 78420- 4672 Apr, Chronic pain G89.29 [facility] [address] 52790- 6480 Apr, [facility] [address] 67824- 5700 Apr, Generalized anxiety disorder F41.1 and Depression, unspecified depression type F32.9 [facility] [id number] [place] [address] 51299- 3613 Apr, Chronic pain G89.29 ; Hypokalemia E87.6 and Insomnia, unspecified type G47.00 [facility] [id number] [place] [address] 18414- 2208 Apr, [facility] [id number] [place] [address] 81051- 4264 Apr, Chronic pain G89.29 [facility] [id number] [place] [address] 65369- 7360 Apr, [facility] [id number] [place] [address] 90773- 4993 Mar, [facility] [id number] [place] [address] 56444- 5240 Mar, Insomnia, unspecified type G47.00 [facility] [id number] [place] [address] 12536- 8366 Mar, Chronic pain G89.29 [facility] [address] [place] [address]- 1446 Mar, [facility] [address] [address]- 6838 Feb, [facility] [address] [address]- 8693 Feb, [facility] [address] [address]- 3239 Feb, [facility] [id number] [address]- 0763 Feb, [facility] [address] [place] [address] 43373- 8256 Feb, [facility] [address] [address]- 6987 29 Jan, 2015 [facility] [id number] [place] [address] 94447- 9876 26 Jan, 2015 [facility] [address] [address]- 1450 20 Jan, 2015 [facility] [address] [address]- 0066 13 Jan, 2015 [facility] [address] [address]- 9462 12 Jan, 2015 [facility] [address] [address]- 5326 07 Jan, 2015 Chronic pain G89.29 [facility] [address] [address]- 1436 Jan, 2016 Chronic pain G89.29 and Fibromyalgia M79.7 [facility] [address] [address]- 0282 Dec, Depression, unspecified depression type F32.9 and Generalized anxiety disorder 300.02 [facility] [address] [address]- 5519 Dec, Dysthymia F34.1 ; Insomnia, unspecified type G47.00 and Chronic pain G89.29 [facility] [id number] [place] [address] 19072- 0709 Dec, Chronic pain G89.29 [facility] [id number] [place] [address] 76578- 0865 Dec, Insomnia, unspecified type G47.00 [facility] [id number] [place] [address] 24152- 7163 Dec, Fibromyalgia M79.7 and Chronic pain G89.29 [facility] [id number] [place] [address] 92350- 9826 Dec, [facility] [id number] [place] [address] 27584- 5809 Dec, [facility] [id number] [place] [address] 26468- 2786 Dec, [facility] [id number] [place] [address] 04046 2540 Dec, [facility] [id number] [place] [address] 40572- 1082 Dec, Chronic pain G89.29 [facility] [id number] [place] [address] 76868- 8234 Dec, [facility] [id number] [place] [address] 43915 2547 Dec, [facility] [id number] [place] [address] 46945 2549 Dec, [facility] [id number] [place] [address] 08499- 4433 Dec, Chronic pain G89.29 and Dysthymia F34.1 [facility] [id number] [place] [address] 13789- 3232 Nov, [facility] [address] [place] [address]- 7022 Nov, Hypokalemia E87.6 and Chronic pain G89.29 [facility] [address] 01924- 0146 Nov, Back pain M54.9 and Pain in right knee M25.561 [facility] [address] 58724- 9029 Nov, [facility] [address] 81170- 1632 Nov, Chronic pain G89.29 [facility] [facility] [address] 30923- 9451 Nov, Chronic pain G89.29 ; Weight loss R63.4 ; Bone pain M89.8X9 and Insomnia, unspecified type G47.00 [facility] [address] 79383- 6856 Nov, Chronic pain G89.29 [facility] [id number] [place] [address] 58589- 6785 Nov, Chronic pain G89.29 [facility] [id number] [place] [address] 90586- 0900 Oct, Chronic pain G89.29 [facility] [id number] [place] [address] 14348- 2599 Oct, UTI symptoms R39.9 [facility] [id number] [place] [address] 49660- 7407 Oct, Chronic pain G89.29 [facility] [address] 86445- 8537 20 Oct, 2015 Chronic pain G89.29 [facility] [id number] [place] [address] 36751- 2759 13 Oct, 2015 Chronic pain G89.29 [facility] [id number] [place] [address] 58328- 9761 Oct, Right upper quadrant abdominal pain R10.11 [facility] [address] [address]- 6435 Oct, Chronic pain G89.29 [facility] [address] [address]- 4918 Oct, [facility] [address] [place] [address] 77901- 0621 September, Chronic pain G89.29 [facility] [address] [place] [address] 94491- 8084 September, Dysuria R30.0 and Urinary tract infection without hematuria , site unspecified N39.0 [facility] [address] [address]- 2393 September, [facility] [address] [place] [address] 13553- 9011 September, Dysuria R30.0 [facility] [address] [place] [address] 72743- 9011 September, Chronic pain G89.29 [facility] [address] [place] [address] 01320- 7199 September, Chronic pain G89.29 and Essential hypertension I10 [facility] [address] [address]- 2794 September, [facility] [address] [address]- 6824 September, [facility] [address] [place] [address] 30318- [address] September, [facility] [id number] [place] [address] 57150- 2616 Aug, UTI symptoms R39.9 [facility] [id number] [address] Aug, Dysuria R30.0 [facility] [id number] [address] Aug, [facility] [id number] [place] [address] 80538- 5390 Aug, [facility] [id number] [place] [address] 99267- 5868 Aug, [facility] [id number] [place] [address] 00879- 7180 Aug, Chronic pain G89.29 [facility] [id number] [place] [address] 67209- 8464 Aug, Dysthymia F34.1 [facility] [id number] [place] [address] 67542- 5442 Aug, Conjunctivitis, unspecified conjunctivitis type, unspecified laterality H10.9 [facility] [id number] [place] [address] 68159- 8132 Jul, Chronic pain G89.29 ; Back pain M54.9 ; Tobacco abuse Z72.0 and Weight decrease R63.4 [facility] [id number] [place] [address] 65232- 9713 Jul, [facility] [id number] [place] [address] 59615- 3265 Jul, [facility] [id number] [place] [address] 11812- 6334 24 Jul, 2015 Chronic pain G89.29 [facility] [id number] [place] [address] 65210- 7496 Jul, [facility] [id number] [place] [address] 73069- 4490 Jul, [facility] [address] [id number] [place] [address] 50987- 7833 Jul, [facility] [id number] [place] [address] 66948- 8432 17 Jul, 2015 [facility] [id number] [place] [address] 74055- 1950 17 Jul, 2015 Chronic pain G89.29 [facility] [id number] [place] [address] 42083- 2168 16 Jul, 2015 Chronic pain G89.29 [facility] [id number] [place] [address] 06905- 4322 15 Jul, 2015 [facility] [id number] [place] [address] 29381- 2940 Jul, [facility] [id number] [place] [address] 62675- 4690 Jul, [facility] [id number] [place] [address] 28172- 2324 Jul, [facility] [id number] [place] [address] 65270- 0016 Jun, [facility] [id number] [place] [address] 66313- 4802 Jun, Depression, unspecified depression type F32.9 [facility] [id number] [place] [address] 62989- 4662 Jun, Pain in right knee M25.561 [facility] [id number] [place] [address] 35196- 1323 24 Jun, 2015 Chronic pain G89.29 ; Back pain M54.9 ; Bone pain M89.8X9 and Weight loss R63.4 [facility] [id number] [place] [address] 52657- 9421 Jun, [facility] [id number] [place] [address] 62834- 1125 May, [facility] [id number] [address] 3844 May, UTI symptoms R39.9 ; Pain in right knee M25.561 ; Right low back pain, with sciatica presence unspecified M54.5 ; Right foot pain M79.671 ; Hypokalemia E87.6 and Screening, lipid Z13.220 [facility] [id number] [place] [address] 85579- 1843 May, [facility] [address] 11535- 9595 May, [facility] [address] 08417- 6302 Mar, [facility] [address] 76240- 2605 Mar, [facility] [address] 85623- 0039 Mar, Hypokalemia E87.6 [facility] [address] 23700- 0528 Mar, Pain in right leg M79.604 ; Encounter for immunization Z23 ; Pain in right knee M25.561 and Hypokalemia E87.6 [facility] [id number] [place] [address] 38509- 2590 Jan, [facility] [id number] [place] [address] 09784- 3428 Jan, [facility] [id number] [place] [address] 82421 2540 Jan, Abdominal pain, generalized 789.07 [facility] [id number] [place] [address] 89110- 3569 Jan, Abdominal pain, generalized 789.07 [facility] [id number] [place] [address] 43678- 3523 Dec, [facility] [id number] [place] [address] 90285- 1084 Dec, [facility] [id number] [address]- 9027 Dec, [facility] [id number] [address]- 2249 Nov, Hallux valgus 735.0 and Hammertoe 735.4 [facility] [id number] [address]- 3886 Nov, [facility] [id number] [place] [address] 61262- 8859 Nov, Hallux valgus 735.0 and Hammer toe 735.4 [facility] [id number] [place] [address] 42616- 9686 Oct, [facility] [id number] [address]- 4594 Oct, [facility] [id number] [place] [address] 92063- 3796 Oct, Pre-op evaluation V72.84 [facility] [id number] [address]- 3123 Oct, [facility] [id number] [address]- 2948 Oct, [facility] [id number] [address]- 8347 September, [facility] [id number] [address]- 2520 September, [facility] [id number] [address]- 8382 September, Hallux valgus (acquired) 735.0 and Other hammer toe ( acquired) 735.4 [facility] [id number] [address]- 0454 Aug, [facility] [id number] [address]- 0806 Aug, [facility] [place] [facility] [address] [id number] [place] [address]- 5043 Jul, [facility] [place] [facility] [address] [id number] [place] [address]- 5142 Jul, [facility] [place] [facility] [address] [id number] [place] [address]- 5388 Jul, [facility] [place] [facility] [address] [id number] [place] [address]- 0224 Jul, 2014 [facility] [place] [facility] [address] [id number] [place] [address]- 2055 Jul, [facility] [place] [facility] [address] [id number] [place] [address]- 2685 Jul, [facility] [place] [facility] [address] [facility] [id number] [place] [address]- 8458 Jul, [facility] [place] [facility] [address] [id number] [place] [address]- 0786 Jul, [facility] [place] [facility] [address] [id number] [place] [address]- 0074 Jun, [facility] [place] [facility] [address] [id number] [place] [address]- 9787 Jun, [facility] [place] [facility] [address] [id number] [place] [address]- 2424 Jun, 2014 [facility] [place] [facility] [address] [id number] [place] [address]- 7785 Jun, 2014 [facility] [place] [facility] [address] [id number] [place] [address]- 1201 Jun, 2014 [facility] [place] [facility] [address] [id number] [place] [address]- 8908 Jun, 2014 [facility] [place] [facility] [address] [facility] [id number] [place] [address]- 9171 Jun, [facility] [place] [facility] [address] [id number] [place] [address]- 7189 Jun, [facility] [place] [facility] [address] [id number] [place] [address]- 2979 Jun, [facility] [place] [facility] [address] [id number] [place] [address]- 0896 Jun, [facility] [place] [facility] [address] [id number] [place] [address]- 2153 May, [facility] [place] [facility] [address] [id number] [place] [address]- 3877 May, [facility] [place] [facility] [address] [id number] [place] [address]- 9209 May, [facility] [place] [facility] [address] [id number] [place] [address]- 0977 May, [facility] [place] [facility] [address] [id number] [place] [address]- 1994 May, [facility] [place] [facility] [address] [id number] [place] [address]- 8020 May, [facility] [place] [facility] [address] [id number] [place] [address]- 7990 May, [facility] [place] [facility] [address] [id number] [place] [address]- 0822 May, [facility] [place] [facility] [address] [id number] [place] [address]- 3539 May, [facility] [place] [facility] [address] [id number] [place] [address]- 7016 May, [facility] [place] [facility] [address] [id number] [place] [address]- 8960 May, [facility] [place] [facility] [address] [id number] [place] [address]- 0616 May, [facility] [place] [facility] [address] [id number] [place] [address]- 5204 May, [facility] [place] [facility] [address] [id number] [place] [address]- 0783 May, [facility] [place] [facility] [address] [id number] [place] [address]- 1796 May, [facility] [place] [facility] [address] [id number] [place] [address]- 3616 May, [facility] [place] [facility] [address] [id number] [place] [address]- 5301 May, [facility] [place] [facility] [address] [id number] [place] [address]- 9172 May, [facility] [place] [facility] [address] [id number] [place] [address]- 8353 Apr, [facility] [place] [facility] [address] [id number] [place] [address]- 4831 Apr, [facility] [place] [facility] [address] [id number] [place] [address]- 4679 Apr, [facility] [place] [facility] [address] [id number] [place] [address]- 0712 Apr, [facility] [place] [facility] [address] [id number] [place] [address]- 3444 Apr, [facility] [place] [facility] [address] [id number] [place] [address]- 3798 Apr, [facility] [place] [facility] [address] [id number] [address]- 5122 Apr, [facility] [place] [facility] [address] [id number] [place]- 9509 Apr, [facility] [place] [facility] [address] [id number] [place] [address]- 6890 Apr, [facility] [place] [facility] [address] [id number] [place] [address]- 6243 Mar, [facility] [place] [facility] [address] [id number] [place] [address]- 0047 Mar, [facility] [place] [facility] [address] [id number] [place] [address]- 9114 Mar, [facility] [place] [facility] [address] [id number] [place] [address]- 5788 Mar, [facility] [place] [facility] [address] [id number] [place] [address]- 8901 Mar, [facility] [place] [facility] [address] [id number] [place] [address]- 4050 Feb, [facility] [place] [facility] [address] [id number] [place] [address]- 4836 Feb, [facility] [place] [facility] [address] [id number] [place] [address]- 5913 Feb, [facility] [place] [facility] [address] [id number] [place] [address]- 4357 Feb, [facility] [place] [facility] [address] [id number] [place] [address]- 4610 Feb, [facility] [place] [facility] [address] [id number] [place] [address]- 1890 Feb, [facility] [place] [facility] [address] [id number] [place] [address]- 8643 Feb, [facility] [place] [facility] [address] [id number] [place] [address]- 9232 Feb, [facility] [place] [facility] [address] [id number] [address]- 4053 Feb, [facility] [place] [facility] [address] [id number] [place] [address]- 5788 Feb, [facility] [place] [facility] [address] [id number] [place] [address]- 2142 Feb, [facility] [place] [facility] [address] [id number] [place] 1867 Feb, [facility] [place] [facility] [address] [id number] [place] [address]- 5998 Feb, 2013 [facility] [place] [facility] [address] [id number] [place] [address]- 2454 Feb, [facility] [place] [facility] [address] [id number] [place] [address]- 1469 Feb, [facility] [place] [facility] [address] [id number] [place] [address]- 6287 Feb, [facility] [place] [facility] [address] [id number] [place] [address]- 8532 Jan, [facility] [place] [facility] [address] [id number] [place] [address]- 8708 23 Jan, 2014 [facility] [place] [facility] [address] [id number] [place] [address]- 5928 20 Jan, 2014 [facility] [place] [facility] [address] [id number] [place] [address]- 4083 19 Jan, 2014 [facility] [place] [facility] [address] [id number] [place] [address]- 6157 Jan, [facility] [place] [facility] [address] [id number] [place] [address]- 2883 Jan, [facility] [place] [facility] [address] [id number] [place] [address]- 2467 Jan, [facility] [place] [facility] [address] [id number] [place] [address]- 9909 Jan, [facility] [place] [facility] [address] [id number] [place] [address]- 2217 Dec, [facility] [place] [facility] [address] [id number] [place] [address]- 7340 Dec, [facility] [place] [facility] [address] [id number] [place] [address]- 9700 Nov, [facility] [place] [facility] [address] [id number] [place] [address]- 6726 Nov, [facility] [place] [facility] [address] [id number] [place] [address]- 6913 Nov, [facility] [place] [facility] [address] [id number] [place] [address]- 5401 Nov, [facility] [place] [facility] [address] [id number] [place] [address]- 2683 Nov, [facility] [place] [facility] [address] [id number] [place] [address]- 9796 Nov, [facility] [place] [facility] [address] [id number] [place] [address]- 7026 Nov, [facility] [place] [facility] [address] [id number] [place] [address]- 2786 Nov, [facility] [place] [facility] [address] [id number] [place] [address]- 8485 Nov, [facility] [place] [facility] [address] [id number] [place] [address]- 4943 Oct, [facility] [place] [facility] [address] [id number] [place] [address]- 5653 Oct, [facility] [place] [facility] [address] [id number] [place] [address]- 9016 Oct, [facility] [place] [facility] [address] [id number] [place] [address]- 6194 Oct, [facility] [place] [facility] [address] [id number] [place] [address]- 0559 Oct, [facility] [place] [facility] [address] [id number] [place] [address]- 9985 Oct, [facility] [place] [facility] [address] [id number] [place] [address]- 3265 September, [facility] [place] [facility] [address] [id number] [place] [address]- 8534 September, [facility] [place] [facility] [address] [id number] [place] [address]- 5523 September, [facility] [address] [id number] [place] [address]- 8873 September, [facility] [address] [id number] [place] [address]- 7222 September, [facility] [address] [id number] [place] [address]- 3896 September, [facility] [address] [id number] [place] [address]- 6178 September, [facility] [address] [id number] [place] [address]- 6114 September, [facility] [address] [id number] [place] [address]- 7972 September, [facility] [address] [id number] [place] [address]- 6092 September, [facility] [address] [id number] [place] [address]- 2003 September, [facility] [address] [id number] [place] [address]- 6208 September, [facility] [address] [id number] [place] [address]- 2826 September, [facility] [address] [id number] [place] [address]- 1399 September, [facility] [address] [id number] [place] [address]- 2698 September, [facility] [address] [id number] [place] [address]- 3012 September, [facility] [address] [id number] [place] [address]- 3322 September, [facility] [address] [id number] [place] [address]- 0285 September, [facility] [place] [facility] [address] [id number] [place] [address]- 6574 September, [facility] [place] [facility] [address] [id number] [place] [address]- 4792 September, [facility] [place] [facility] [address] [id number] [place] [address]- 5629 Aug, [facility] [place] [facility] [address] [id number] [place] [address]- 1470 Aug, [facility] [place] [facility] [address] [id number] [place] [address]- 0596 Aug, [facility] [place] [facility] [address] [id number] [place] [address]- 7044 Aug, [facility] [place] [facility] [address] [id number] [place] [address]- 7397 Aug, [facility] [place] [facility] [address] [id number] [place] [address]- 7281 Aug, [facility] [place] [facility] [address] [id number] [place] [address]- 3297 Aug, [facility] [place] [facility] [address] [id number] [place] [address]- 3963 Aug, [facility] [place] [facility] [address] [id number] [place] [address]- 6534 Aug, [facility] [place] [facility] [address] [id number] [place] [address]- 2426 Aug, [facility] [place] [facility] [address] [id number] [place] [address]- 1274 Aug, [facility] [place] [facility] [address] [id number] [place] [address]- 0222 Aug, [facility] [place] [facility] [address] [id number] [place] [address]- 8154 Aug, [facility] [place] [facility] [address] [id number] [place] [address]- 4165 Aug, [facility] [place] [facility] [address] [id number] [place] [address]- 9262 Aug, [facility] [place] [facility] [address] [id number] [place] [address]- 5235 Jul, [facility] [place] [facility] [address] [id number] [place] 2546 31 Jul, 2013 [facility] [place] [facility] [address] [id number] [place] [address]- 4213 27 Jul, 2013 [facility] [place] [facility] [address] [id number] [place] [address]- 0408 27 Jul, 2013 [facility] [place] [facility] [address] [id number] [place] [address]- 5931 Jul, [facility] [place] [facility] [address] [id number] [place] [address]- 3846 Jul, [facility] [place] [facility] [address] [id number] [place] [address]- 7675 18 Jul, 2013 [facility] [place] [facility] [address] [id number] [place] [address]- 7937 18 Jul, 2013 [facility] [place] [facility] [address] [id number] [place] [address]- 9240 Jul, [facility] [place] [facility] [address] [id number] [place] [address]- 8403 06 Jul, 2013 [facility] [place] [facility] [address] [id number] [place] [address]- 0688 Jul, [facility] [place] [facility] [address] [id number] [place] [address]- 5455 04 Jul, 2013 [facility] [place] [facility] [address] [id number] [place] [address]- 4962 Jul, [facility] [place] [facility] [address] [id number] [place] [address]- 8046 Jul, [facility] [place] [facility] [address] [id number] [place] [address]- 3199 Jul, [facility] [place] [facility] [address] [id number] [place] [address]- 1408 Jun, [facility] [place] [facility] [address] [id number] [place] [address]- 3186 Jun, [facility] [place] [facility] [address] [id number] [place] [address]- 9790 Jun, [facility] [place] [facility] [address] [id number] [place] [address] Jun, [facility] [place] [facility] [address] [id number] [place] [address] Jun, [facility] [place] [facility] [address] [id number] [place] [address] Jun, [facility] [place] [facility] [address] [id number] [place] [address] May, [facility] [place] [facility] [address] [id number] [place] [address] May, [facility] [place] [facility] [address] [id number] [place] [address] May, [facility] [place] [facility] [address] [id number] [place] [address] May, [facility] [place] [facility] [address] [id number] [place] [address]- [address] May, [facility] [place] [facility] [address] [id number] [place] [address] May, [facility] [place] [facility] [address] [id number] [place] [address]- [address] May, [facility] [place] [facility] [address] [id number] [place] [address]- [address] May, [facility] [place] [facility] [address] [id number] [place] [address] May, [facility] [address] [id number] [place] [address] May, [facility] [place] [facility] [address] [id number] [place] [address] May, [facility] [place] [facility] [address] [id number] [place] [address]- [address] May, [facility] [place] [facility] [address] [id number] [place] [address]- [address] May, [facility] [place] [facility] [address] [id number] [place] [address] May, [facility] [place] [facility] [address] [id number] [place] [address]- [address]68 May, [facility] [place] [facility] [address] [id number] [place] [address]- [address] Apr, [facility] [place] [facility] [address] [id number] [place] [address] 47[address] Apr, [facility] [place] [facility] [address] [id number] [place] [address]- [address] Apr, [facility] [place] [facility] [address] [id number] [place] [address]- 7945 Apr, [facility] [place] [facility] [address] [id number] [place] [address]- [address] Apr, [facility] [place] [facility] [address] [id number] [place] [address]- [address] Apr, [facility] [place] [facility] [address] [id number] [place] [address]- 7468 Apr, [facility] [place] [facility] [address] [id number] [place] [address]- 79[address] Apr, [facility] [place] [facility] [address] [id number] [place] [address] Apr, [facility] [place] [facility] [address] [id number] [place] [address]- 9020 Apr, [facility] [address] [id number] [place] [address]69 Mar, [facility] [address] [id number] [place] [address] Mar, [facility] [address] [id number] [place] [address]- [address] Mar, [facility] [address] [id number] [place] [address]- 9[address] Mar, [facility] [address] [id number] [place] [address]643 Mar, [facility] [address] [id number] [place] [address] Mar, [facility] [address] [id number] [place] [address] Mar, [facility] [address] [id number] [place] [address] Mar, [facility] [address] [id number] [place] [address] 164[address] Mar, [facility] [address] [id number] [place] [address] Mar, [facility] [address] [id number] [place] [address]- [address]162 Mar, [facility] [address] [id number] [place] [address] Mar, [facility] [place] [facility] [address] [id number] [place] [address]- [address]876 Mar, [facility] [address] [id number] [place] [address]- [address] Mar, [facility] [address] [id number] [place] [address]- [address] Mar, [facility] [place] [facility] [address] [id number] [place] [address]- [address] 18 Mar, 2013 [facility] [place] [facility] [address] [id number] [place] [address]- [address]45 Mar, [facility] [place] [facility] [address] [id number] [place] [address]- [address] Mar, [facility] [place] [facility] [address] [id number] [place] [address]- 6727 Mar, [facility] [place] [facility] [address] [id number] [place] [address]- 4[address] Mar, [facility] [place] [facility] [address] [id number] [place] [address]- 5817 Mar, [facility] [place] [facility] [address] [id number] [place] [address]- [address]207 Mar, [facility] [place] [facility] [address] [id number] [place] [address]- 3315 Mar, [facility] [place] [facility] [address] [id number] [place] [address]- [address] Feb, [facility] [place] [facility] [address] [id number] [place] [address] Feb, [facility] [place] [facility] [address] [id number] [place] [address] 78[address] Feb, [facility] [place] [facility] [address] [id number] [place] [address]- [address] 16 Feb, 2013 [facility] [place] [facility] [address] [id number] [place] [address]- [address]676 15 Feb, 2013 [facility] [place] [facility] [address] [id number] [place] [address] 1471 Feb, [facility] [place] [facility] [address] [id number] [place] [address] Feb, [facility] [place] [facility] [address] [id number] [place] [address]- [address] 07 Feb, 2013 [facility] [address] [id number] [place] [address]- 4[address] 04 Feb, 2013 [facility] [place] [facility] [address] [id number] [place] [address]- 1468 03 Feb, 2013 [facility] [place] [facility] [address] [id number] [place] [address] 30 Jan, 2013 [facility] [place] [facility] [address] [id number] [place] [address] 0000 26 Jan, 2013 [facility] [place] [facility] [address] [id number] [place] [address]- 1139 24 Jan, 2013 [facility] [place] [facility] [address] [id number] [place] [address]- 2174 23 Jan, 2013 [facility] [address] [id number] [place] [address] 2574 17 Jan, 2013 [facility] [place] [facility] [address] [id number] [place] [address] 2305 Dec, [facility] [place] [facility] [address] [id number] [place] [address]- 9287 Dec, [facility] [place] [facility] [address] [id number] [place] [address]- 9684 16 Dec, 2012 [facility] [place] [facility] [address] [id number] [place] [address]- 9702 15 Dec, 2012 [facility] [place] [facility] [address] [id number] [place] [address]- 2706 14 Dec, 2012 [facility] [place] [facility] [address] [id number] [place] [address]- 0524 Dec, [facility] [place] [facility] [address] [id number] [place] [address]- 5405 Dec, [facility] [place] [facility] [address] [id number] [place] [address]- 6416 Nov, [facility] [place] [facility] [address] [id number] [place] [address] 2545 16 Nov, 2012 [facility] [address] [id number] [place] [address]- 0215 15 Nov, 2012 [facility] [place] [facility] [address] [id number] [place] [address]- 2546 05 Nov, 2012 [facility] [place] [facility] [address] [id number] [place] [address]- 8974 Nov, [facility] [place] [facility] [address] [id number] [place] [address] 5150 Oct, [facility] [place] [facility] [address] [id number] [place] [address]- 3034 Oct, [facility] [address] [id number] [place] [address]- 4336 Oct, [facility] [address] [id number] [place] [address] 0143 September, [facility] [address] [id number] [place] [address] 3698 September, [facility] [address] [id number] [place] [address]- 3029 September, [facility] [address] [id number] [place] [address]- 5439 September, [facility] [address] [id number] [place] [address]- 0460 September, [facility] [place] [facility] [address] [id number] [place] [address]- 3557 September, [facility] [place] [facility] [address] [id number] [place] [address]- 4686 September, [facility] [place] [facility] [address] [id number] [place] [address]- 8610 Aug, [facility] [place] [facility] [address] [id number] [place] [address]- 7030 23 Aug, 2012 [facility] [address] [id number] [place] [address]- 1479 11 Aug, 2012 [facility] [place] [facility] [address] [id number] [place] [address]- 4698 29 Jul, 2012 [facility] [address] [facility] [id number] [place] [address]- 5798 27 Jul, 2012 [facility] [place] [facility] [address] [facility] [id number] [place] [address]- 3612 26 Jul, 2012 [facility] [address] [facility] [id number] [place] [address]- 7059 20 Jul, 2012 [facility] [place] [facility] [address] [facility] [id number] [place] [address]- 9774 18 Jul, 2012 [facility] [address] [facility] [id number] [place] [address]- 9787 18 Jul, 2012 [facility] [place] [facility] [address] [facility] [id number] [address] 0487 13 Jul, 2012 [facility] [place] [facility] [address] [facility] [id number] [place] [address]- 9364 28 Jun, 2012 [facility] [place] [facility] [address] [facility] [id number] [place] [address]- 9246 27 Jun, 2012 [facility] [place] [facility] [address] [facility] [id number] [place] [address] 2840 22 Jun, 2012 [facility] [place] [facility] [address] [facility] [id number] [place] [address] 6559 20 Jun, 2012 [facility] [place] [facility] [address] [facility] [id number] [place] [address]- 8838 15 Jun, 2012 [facility] [place] [facility] [address] [facility] [id number] [place] [address]- 5752 15 Jun, 2012 [facility] [place] [facility] [address] [facility] [id number] [place] [address]- 6280 13 Jun, 2012 [facility] [place] [facility] [address] [id number] [place] [address]- 4902 Jun, [facility] [address] [id number] [place] [address]- 1366 Jun, [facility] [place] [facility] [address] [id number] [place] [address]- 2546 Jun, [facility] [place] [facility] [address] [id number] [place] [address]- 3567 May, [facility] [place] [facility] [address] [id number] [place] [address]- 7202 May, [facility] [place] [facility] [address] [id number] [place] [address]- 0741 May, [facility] [address] [id number] [place] [address]- 7688 May, [facility] [address] [id number] [place] [address]- 6873 May, [facility] [address] [id number] [place] [address]- 3119 May, [facility] [address] [id number] [place] [address]- 2337 Apr, [facility] [address] [id number] [place] [address]- 8470 31 Apr, 2012 [facility] [place] [facility] [address] [id number] [place] [address]- 9303 Apr, [facility] [place] [facility] [address] [id number] [place] [address]- 6489 28 Apr, 2012 [facility] [place] [facility] [address] [id number] [place] [address]- 8070 26 Apr, 2012 [facility] [place] [facility] [address] [id number] [place] [address]- 0665 20 Apr, 2012 [facility] [place] [facility] [address] [id number] [place] [address]- 6644 Apr, [facility] [place] [facility] [address] [id number] [place] [address]- 5377 Mar, [facility] [place] [facility] [address] [id number] [place] [address]- 8795 29 Mar, 2012 [facility] [place] [facility] [address] [facility] [id number] [place] [address]- 4314 Mar, [facility] [place] [facility] [address] [id number] [place] [address]- 8512 Mar, [facility] [place] [facility] [address] [id number] [place] [address]- 8143 Mar, [facility] [place] [facility] [address] [id number] [place] [address]- 8832 Mar, [facility] [place] [facility] [address] [id number] [place] [address]- 1747 Mar, [facility] [place] [facility] [address] [id number] [place] [address]- 5549 Mar, [facility] [place] [facility] [address] [id number] [place] [address]- 5534 Mar, [facility] [place] [facility] [address] [id number] [place] [address]- 9218 Mar, [facility] [place] [facility] [address] [id number] [place] [address]- 9443 Mar, [facility] [place] [facility] [address] [id number] [place] [address]- 5986 Mar, [facility] [place] [facility] [address] [id number] [place] [address]- 6660 Mar, [facility] [place] [facility] [address] [facility] [id number] [place] [address]- 1426 Mar, [facility] [place] [facility] [address] [facility] [id number] [place] [address]- 9417 Mar, [facility] [place] [facility] [address] [id number] [place] [address] 2543 Mar, [facility] [place] [facility] [address] [id number] [place] [address]- 9017 Mar, [facility] [place] [facility] [address] [id number] [place] [address]- 3603 Feb, [facility] [place] [facility] [address] [id number] [place] [address]- 3868 Feb, [facility] [place] [facility] [address] [id number] [place] [address]- 9264 Feb, [facility] [place] [facility] [address] [id number] [place] [address]- 7688 Feb, [facility] [place] [facility] [address] [id number] [place] [address]- 8440 Feb, [facility] [place] [facility] [address] [id number] [place] [address]- 5330 Feb, [facility] [place] [facility] [address] [id number] [place] Feb, [facility] [place] [facility] [address] [facility] [id number] [place] [address]- 3204 Feb, [facility] [place] [facility] [address] [facility] [id number] [place] [address]31 Feb, [facility] [place] [facility] [address] [id number] [place] [address]- 2988 Feb, [facility] [place] [facility] [address] [id number] [place] [address]- 2515 Feb, [facility] [place] [facility] [address] [id number] [place] [address]- 5671 27 Jan, 2012 [facility] [place] [facility] [address] [id number] [place] [address]- 7806 Jan, [facility] [place] [facility] [address] [id number] [place] [address]- 6602 13 Jan, 2012 [facility] [place] [facility] [address] [id number] [place] [address]- 0811 12 Jan, 2012 [facility] [place] [facility] [address] [id number] [place] [address]- 0843 Jan, [facility] [place] [facility] [address] [id number] [place] [address]- 4329 Dec, [facility] [place] [facility] [address] [id number] [place] [address]- 9011 Dec, [facility] [place] [facility] [address] [id number] [place] [address]- 6150 Dec, [facility] [place] [facility] [address] [id number] [place] [address]- 7760 Dec, [facility] [place] [facility] [address] [id number] [place] [address]- 7302 Dec, [facility] [place] [facility] [address] [id number] [place] [address]- 1818 Dec, [facility] [place] [facility] [address] [id number] [place] [address]- 8252 Dec, [facility] [place] [facility] [address] [id number] [place] [address]- 9646 Dec, [facility] [place] [facility] [address] [id number] [place] [address]- 3096 Nov, [facility] [place] [facility] [address] [id number] [place] [address]- 3882 Nov, [facility] [place] [facility] [address] [id number] [place] [address]- 0055 Nov, [facility] [place] [facility] [address] [id number] [place] [address]- 2742 Nov, [facility] [place] [facility] [address] [id number] [place] [address]- 4640 Nov, [facility] [place] [facility] [address] [id number] [place] [address]- 3444 Oct, [facility] [address] [id number] [place] [address]- 1371 Oct, [facility] [place] [facility] [address] [id number] [place] [address]- 0212 September, [facility] [address] [id number] [place] [address]- 1566 September, [facility] [address] [id number] [place] [address]- 6741 September, [facility] [address] [id number] [place] [address]- 3775 September, [facility] [address] [id number] [place] 1684 September, [facility] [address] [id number] [place] [address]- 0065 September, [facility] [address] [id number] [place] [address]- 5979 September, [facility] [address] [id number] [place] [address]- 5551 September, [facility] [address] [id number] [place] [address]- 4114 September, [facility] [address] [id number] [place] [address]- 5683 September, [facility] [place] [facility] [address] [id number] [place] [address]- 5646 September, [facility] [place] [facility] [address] [id number] [place] [address]- 5405 September, [facility] [place] [facility] [address] [id number] [place] [address]- 7890 September, [facility] [place] [facility] [address] [id number] [place] [address]- 9529 September, [facility] [place] [facility] [address] [id number] [place] [address]- 5945 24 Aug, 2011 [facility] [address] [id number] [place] [address]- 2935 20 Aug, 2011 [facility] [place] [facility] [address] [id number] [place] [address]- 8241 13 Aug, 2011 [facility] [address] [id number] [place] [address]- 3047 11 Aug, 2011 [facility] [place] [facility] [address] [id number] [place] [address]- 4498 23 Jul, 2011 [facility] [place] [facility] [address] [id number] [place] [address]- 2154 13 Jul, 2011 [facility] [place] [facility] [address] [facility] [id number] [place] [address]- 3378 13 Jul, 2011 [facility] [address] [id number] [place] [address]- 4584 28 Jun, [address] [facility] [address] [id number] 26 Jun, 2011 [facility] [address] [id number] [place] [address]- 1956 13 Jun, 2011 [facility] [address] [id number] [place] [place] [address]- 5010 10 Jun, 2011 [facility] [place] [facility] [address] [id number] [place] [address]- 7576 07 Jun, 2011 [facility] [place] [facility] [address] [id number] [place] [address]- 9890 07 Jun, 2011 [facility] [place] [facility] [address] [id number] [place] [address]- 2957 03 Jun, 2011 [facility] [place] [facility] [address] [id number] [place] [address]- 2999 02 Jun, 2011 [facility] [place] [facility] [address] [id number] [place] [address]- 0013 31 May, 2011 [facility] [address] [id number] [place] [address]- 0848 30 May, 2011 [facility] [place] [facility] [address] [id number] [place] [address]- 6928 May, [facility] [place] [facility] [address] [id number] [place] [address]- 0407 May, [facility] [place] [facility] [address] [id number] [place] [address]- 0695 May, [facility] [place] [facility] [address] [id number] [place] [address]- 1646 May, [facility] [place] [facility] [address] [id number] [place] [address]- 6981 May, [facility] [place] [facility] [address] [id number] [place] [address]- 9871 May, [facility] [place] [facility] [address] [id number] [place] [address]- 7517 May, [facility] [place] [facility] [address] [id number] [place] [address]- 6907 May, [facility] [place] [facility] [address] [id number] [place] [address]- 3179 May, [facility] [place] [facility] [address] [id number] [place] [address]- 5352 May, [facility] [place] [facility] [address] [id number] [place] [address]- 3516 May, [facility] [place] [facility] [address] [id number] [place] [address]- 4976 May, [facility] [place] [facility] [address] [id number] [place] [address]- 9581 Apr, [facility] [place] [facility] [address] [id number] [place] [address]- 0106 Apr, [facility] [place] [facility] [address] [id number] [place] [address]- 7059 05 Apr, 2011 [facility] [address] [id number] [place] [address]- 4516 17 Mar, 2011 [facility] [place] [facility] [address] [id number] [place] [address] 2546 Mar, [facility] [address] [id number] [place] [address]- 6076 31 Feb, 2011 [facility] [place] [facility] [address] [id number] [place] [address] 2546 26 Feb, 2011 [facility] [address] [id number] [place] [address]- 7930 Feb, [facility] [address] [id number] [place] [address]- 0336 20 Feb, 2011 [facility] [address] [id number] [place] [address]- 7142 13 Feb, 2011 [facility] [address] [id number] [place] [address]- 5342 28 Apr, 2010 [facility] [place] [facility] [address] [id number] [place] [address] 2546 22 Apr, 2010 [facility] [address] [id number] [place] [address] 2549 16 Apr, 2010 [facility] [place] [facility] [address] [id number] [place] [address] 2546 15 Apr, 2010 [facility] [place] [facility] [address] [id number] [place] [address] 2546 15 Apr, 2010 [facility] [place] [facility] [address] [id number] [place] [address] 2546 Apr, [facility] [place] [facility] [address] [id number] [place] [address]- 2546 24 Mar, 2010 [facility] [place] [facility] [address] [id number] [place] [address] 2544 17 Mar, 2010 [facility] [address] [id number] [address]- 2771 17 Mar, 2010 [facility] [id number] [address]- 2021 28 Feb, 2010 [facility] [id number] [address]- 8431 Feb, [facility] [id number] [address]- 6451 Feb, [facility] [id number] [address]- 9708 Feb, [facility] [id number] [address]- 3634 Dec, [facility] [id number] [address]- 4599 Dec, [facility] [id number] [address]- 2215 Oct, [facility] [id number] [address]- 2402 Mar, [facility] [address] [id number] [address]- 0956 Mar, [facility] [address] [id number] [address]- 6565 September, IMMUNIZATIONS No Known Immunizations SOCIAL HISTORY Never Assessed REASON FOR VISIT Knee Pain PLAN OF CARE VITAL SIGNS MEDICATIONS [...]
--- OUTSIDE RECORDS SUMMARY | 2018-01-08 15:24 | XMS REPORT ---
Author Author VALERIE ZAVALA [facility] Address [address] [place] [address] Care Team Providers Care Substation Operator Transforming Name Role Phone VALERIE ZAVALA Unavailable PROBLEMS Type Condition ICD9-CM Code MPC50-ZA Code Onset Dates Condition Status SNOMED Code Problem Generalized anxiety disorder F41.1 Active 72849070 Problem Hypokalemia E87.6 Active 617224302 Problem Right low back pain, with sciatica presence unspecified M54.5 Active 977577689 Problem Post-traumatic stress disorder, chronic F43.12 Active 74203774 Problem Pain in right knee M25.561 Active 18559937 Problem Gastroesophageal reflux disease without esophagitis K21.9 Active 222798333 Problem UTI symptoms R39.9 Active 52296216 Problem Essential hypertension I10 Active 49595177 Problem Anxiety F41.9 Active 16470376 Problem Neuropathy G62.9 Active 867416835 Problem Other chronic pain G89.29 Active 76349240 Problem Generalized abdominal pain R10.84 Active 608789931 Problem Chronic pain G89.29 Active 40627288 Problem Back pain M54.9 Active 538914317 Problem Right foot pain M79.671 Active 18599296 Problem Panic attacks F41.0 Active 853848563 Problem Other emphysema J43.8 Active 26802588 Problem Kidney stones N20.0 Active 68213941 Problem Renal calculus, right N20.0 Active 84188735 Problem Weight decrease R63.4 Active 395450793 Problem Tobacco abuse Z72.0 Active 17139260 Problem Bone pain M89.8X9 Active 62682390 Problem Depression, unspecified depression type F32.9 Active 02851483 Problem Insomnia, unspecified type G47.00 Active 640991248 Problem Pulmonary emphysema, unspecified emphysema type J43.9 Active 46255261 Problem Right upper quadrant abdominal pain R10.11 Active 788998873 Problem Weight loss R63.4 Active 137951863 ALLERGIES No Information ENCOUNTERS Encounter Location Date Diagnosis [facility] [address], [place] [address] Dec, [facility] [id number] [place] [address] 88169- 3713 Dec, [facility] [id number] [place] [address] 85926- 1791 Dec, [facility] [id number] [place] [address] 44912- 4736 Dec, Medicare welcome exam Z00.00 [facility] [id number] [place] [address] 11878- 3672 Nov, [facility] [id number] [place] [address] 00098- 3210 Nov, Pelvic pain R10.2 ; Acute pyelonephritis N10 and Essential hypertension I10 [facility] [id number] [place] [address] 23935- 7001 Oct, Medicare welcome exam Z00.00 [facility] [id number] [place] [address] 07203- 9077 Oct, Gross hematuria R31.0 ; Urinary tract infection without hematuria, site unspecified N39.0 and Weakness R53.1 [facility] [address], [place] [address] 2398 Oct, [facility] [id number] [place] [address] 74871- 0799 Oct, [facility] [id number] [place] [address] 15074- 4483 Oct, Medicare welcome exam Z00.00 [facility] [id number] [place] [address] 14963- 6669 September, Back pain M54.9 and Right anterior knee pain M25.561 [facility] [id number] [place] [address] 63080- 8336 September, [facility] [address], [place] [address] 6782 September, [facility] [id number] [place] [address] 84256- 9119 September, Essential hypertension I10 [facility] [id number] [place] [address] 77011- 1299 September, [facility] [id number] [place] [address] 35523- 3711 September, RLQ abdominal pain R10.31 ; Low back pain M54.5 and Other chronic pain G89.29 [facility] [id number] [place] [address] 79437- 3990 Aug, Medicare welcome exam Z00.00 [facility] [id number] [place] [address] 02349- 1883 Aug, [facility] [id number] [place] [address] 00310- 5812 Aug, Acute pyelonephritis N10 and Medicare welcome exam Z00.00 [facility] [id number] [place] [address] 17574 -1240 Aug, Dysuria R30.0 and Acute pyelonephritis N10 [facility] [address], [place] [address] 6445 Aug, [facility] [address], [place] [address]- 0425 Aug, [facility] [id number] [place] [address] 19218- 4980 Aug, [facility] [address], [place] [address]- 0837 Aug, [facility] [address], [place] [address]- 8711 Jul, [facility] [id number] [place] [address] 83854- 8074 Jul, Renal calculus, right N20.0 and Medicare welcome exam Z00.00 [facility] [id number] [place] [address] 92468 -0818 Jul, Dysuria R30.0 and Renal calculus, right N20.0 [facility] [id number] [place] [address] 14279- 2522 Jul, Medicare welcome exam Z00.00 [facility] [id number] [place] [address] 43160- 1468 Jun, Gastroesophageal reflux disease without esophagitis K21.9 and Generalized abdominal pain R10.84 [facility] [id number] [place] [address] 01720- 7546 Jun, Medicare welcome exam Z00.00 [facility] [id number] [place] [address] 42330- 3034 Jun, [facility] [id number] [place] [address] 30351- 0744 Jun, Medicare welcome exam Z00.00 and Encounter for screening mammogram for malignant neoplasm of breast Z12.31 [facility] [id number] [place] [address] 46380- 1278 Jun, Chronic pain G89.29 [facility] [id number] [place] [address] 94888- 2670 May, [facility] [id number] [place] [address] 90188- 7683 May, Pelvic pain R10.2 [facility] [id number] [place] [address] 81424- 7632 May, Pelvic pain R10.2 [facility] [id number] [place] [address] 62281 -4510 May, Renal calculus, right N20.0 [facility] [id number] [place] [address] 48756- 7252 May, Hematuria, unspecified type R31.9 and Nephrolithiasis N20.0 [facility] [id number] [place] [address] 45422 -2512 May, Dysuria R30.0 and Nephrolithiasis N20.0 [facility] [id number] [place] [address] 46297- 4638 May, [facility] [id number] [place] [address] 43335 -5527 May, Abdominal pain R10.9 and Kidney stone N20.0 [facility] [id number] [place] [address] 22816- 5794 May, [facility] [id number] [place] [address] 90491- 4305 May, Chronic pain G89.29 and Panic attacks F41.0 [facility] [id number] [place] [address] 36805- 5105 May, Urinary tract infection without hematuria, site unspecified N39.0 [facility] [id number] [place] [address] 69372- 3105 Apr, Right lower quadrant abdominal pain R10.31 and Abnormal serum lipase level R74.8 [facility] [id number] [place] [address] 87080- 7721 Apr, Recurrent urinary tract infection N39.0 [facility] [id number] [place] [address] 52087- 6779 Apr, UTI symptoms R39.9 ; Recurrent urinary tract infection N39.0 and Pelvic pain R10.2 [facility] [id number] [place] [address] 39235- 0056 Apr, Chronic pain G89.29 and Panic attacks F41.0 [facility] [id number] [place] [address] 93312- 3681 Apr, Dysuria R30.0 [facility] [address] 67392- 4400 Apr, [facility] [address] 70962- 6669 Apr, Dysuria R30.0 and Urinary tract infection without hematuria , site unspecified N39.0 [facility] [address] 65840- 2871 Mar, UTI symptoms R39.9 [facility] [address] 54356- 1005 Mar, [facility] [address] 27803- 9421 Mar, Panic attacks F41.0 and Chronic pain G89.29 [facility] [address] 08166- 7912 Mar, [facility] [id number] [place] [address] 60915- 5158 Mar, Dysuria R30.0 [facility] [address] 47997- 7619 Mar, Dysuria R30.0 [facility] [id number] [place] [address] 45429- 8175 Feb, Chronic pain G89.29 ; Shortness of breath R06.02 ; Weight loss R63.4 ; Encounter for immunization Z23 ; Bone pain M89.8X9 ; Right anterior knee pain M25.561 and Cough R05 [facility] [address] 36434- 3039 Feb, Shortness of breath R06.02 [facility] [address] 32998- 1687 Feb, [facility] [address] 19039- 5347 Feb, Panic attacks F41.0 and Chronic pain G89.29 [facility] [address] 00648- 1645 Feb, [facility] [address] 34262- 1637 Feb, Panic attacks F41.0 ; Shortness of breath R06.02 and Encounter for immunization Z23 [facility] [address] 67569- 2142 Jan, [facility] [address] 88470- 9516 Jan, Anxiety F41.9 and Chronic pain G89.29 [facility] [address] 36679- 2785 Dec, Anxiety F41.9 and Chronic pain G89.29 [facility] [address] 00608- 5161 Nov, Chronic pain G89.29 [facility] [address] 53306- 2088 Nov, Anxiety F41.9 [facility] [address] 18342- 5046 Nov, Chronic pain G89.29 ; Essential hypertension I10 and Other emphysema J43.8 [facility] [address] 09395- 2380 Oct, Anxiety F41.9 [facility] [address] 41099- 0156 Oct, [facility] [address] 76325- 2672 Oct, Chronic pain G89.29 [facility] [address] 88111- 0292 September, Recurrent UTI N39.0 ; Neuropathy G62.9 and Anxiety F41.9 [facility] [id number] [place] [address] 42036- 5634 September, [facility] [id number] [place] [address] 52850- 4354 September, Chronic pain G89.29 [facility] [id number] [place] [address] 04959- 5864 September, [facility] [id number] [place] [address] 21877- 7417 Aug, Post-traumatic stress disorder, chronic F43.12 ; Chronic urinary tract infection N39.0 ; Gastroesophageal reflux disease without esophagitis K21.9 ; Chronic pain G89.29 ; Essential hypertension I10 and Tobacco abuse Z72.0 [facility] [id number] [place] [address] 46573 -0682 Aug, [facility] [id number] [place] [address] 30598- 7133 Aug, Chronic pain G89.29 [facility] [id number] [place] [address] 75936- 5079 Aug, Insomnia, unspecified type G47.00 [facility] [id number] [place] [address] 08988- 3622 Aug, [facility] [id number] [place] [address] 12462- 9347 Jul, Chronic pain G89.29 [facility] [id number] [place] [address] 55049- 0904 Jul, [facility] [id number] [place] [address] 42123- 2565 Jul, [facility] [id number] [place] [address] 12860- 7783 Jul, [facility] [id number] [place] [address] 92412- 9952 15 Jul, 2016 Recurrent UTI (urinary tract infection) N39.0 [facility] [id number] [place] [address] 47583- 9010 14 Jul, 2016 [facility] [id number] [place] [address] 82372- 9020 27 Jun, 2016 Chronic pain G89.29 [facility] [id number] [place] [address] 85275- 7120 17 Jun, 2016 [facility] [id number] [place] [address] 35909- 6286 Jun, [facility] [id number] [place] [address] 22301- 9125 May, Chronic pain G89.29 [facility] [id number] [place] [address] 89242- 3238 May, Weight loss R63.4 and Shortness of breath R06.02 [facility] [id number] [place] [address] 04018- 2019 May, Chronic pain G89.29 ; Weight loss R63.4 and Tobacco abuse Z72.0 [facility] [address], [place] [address]- 8250 May, [facility] [id number] [place] [address] 76298- 0711 May, Hypoxia R09.02 [facility] [address], [place] [address]- 0368 May, [facility] [id number] [place] [address] 91603- 6062 May, Pulmonary emphysema, unspecified emphysema type J43.9 [facility] [address], [place] [address] -3909 May, [facility] [id number] [place] [address] 12006- 8378 May, [facility] [id number] [place] [address] 72030- 1925 May, [facility] [id number] [place] [address] 53509- 5909 May, Chronic pain G89.29 ; Encounter for immunization Z23 ; Right anterior knee pain M25.561 and Cough R05 [facility] [address] 43936- 7201 Apr, Chronic pain G89.29 [facility] [address] 05754- 5444 Apr, [facility] [address] 92764- 5775 Apr, Generalized anxiety disorder F41.1 and Depression, unspecified depression type F32.9 [facility] [id number] [place] [address] 44630- 0454 Apr, Chronic pain G89.29 ; Hypokalemia E87.6 and Insomnia, unspecified type G47.00 [facility] [id number] [place] [address] 54031- 4463 Apr, [facility] [id number] [place] [address] 10348- 1007 Apr, Chronic pain G89.29 [facility] [id number] [place] [address] 70718- 7384 Apr, [facility] [id number] [place] [address] 60541- 9511 Mar, [facility] [id number] [place] [address] 70242- 3183 Mar, Insomnia, unspecified type G47.00 [facility] [id number] [place] [address] 84592- 1750 Mar, Chronic pain G89.29 [facility] [address] [place] [address]- 8774 Mar, [facility] [address], [place] [address]- 1620 Feb, [facility] [address], [place] [address]- 1917 Feb, [facility] [address], [place] [address]- 7668 Feb, [facility] [id number] [address]- 3610 Feb, [facility] [id number] [place] [address] 56595- 8396 Feb, [facility] [address], [place] [address]- 4480 29 Jan, 2015 [facility] [id number] [place] [address] 89998- 7806 26 Jan, 2015 [facility] [address], [place] [address]- 6009 20 Jan, 2015 [facility] [address], [place] [address]- 1976 13 Jan, 2015 [facility] [address], [place] [address]- 7527 12 Jan, 2015 [facility] [address], [place] [address]- 7527 07 Jan, 2015 Chronic pain G89.29 [facility] [address], [place] [address]- 4307 Jan, 2016 Chronic pain G89.29 and Fibromyalgia M79.7 [facility] [address], [place] [address]- 2590 Dec, Depression, unspecified depression type F32.9 and Generalized anxiety disorder 300.02 [facility] [address], [place] [address]- 1295 Dec, Dysthymia F34.1 ; Insomnia, unspecified type G47.00 and Chronic pain G89.29 [facility] [id number] [place] [address] 09755- 5313 Dec, Chronic pain G89.29 [facility] [id number] [place] [address] 37929- 6292 Dec, Insomnia, unspecified type G47.00 [facility] [id number] [place] [address] 81933- 5495 Dec, Fibromyalgia M79.7 and Chronic pain G89.29 [facility] [id number] [place] [address] 35476- 0792 Dec, [facility] [id number] [place] [address] 95044- 7294 Dec, [facility] [id number] [place] [address] 35585- 8045 Dec, [facility] [id number] [place] [address] 35848 2548 Dec, [facility] [id number] [place] [address] 39474- 3264 Dec, Chronic pain G89.29 [facility] [id number] [place] [address] 72574- 4509 Dec, [facility] [id number] [place] [address] 04479 2549 Dec, [facility] [id number] [place] [address] 55047 2548 Dec, [facility] [id number] [place] [address] 79322- 4156 Dec, Chronic pain G89.29 and Dysthymia F34.1 [facility] [id number] [place] [address] 90906- 2816 Nov, [facility] [address] [place] [address]- 2845 Nov, Hypokalemia E87.6 and Chronic pain G89.29 [facility] [address] 58058- 1543 Nov, Back pain M54.9 and Pain in right knee M25.561 [facility] [address] 64478- 4914 Nov, [facility] [address] 11034- 9452 Nov, Chronic pain G89.29 [facility] [address] 66142- 8964 Nov, Chronic pain G89.29 ; Weight loss R63.4 ; Bone pain M89.8X9 and Insomnia, unspecified type G47.00 [facility] [address] 60389- 1818 Nov, Chronic pain G89.29 [facility] [id number] [place] [address] 71442- 8603 Nov, Chronic pain G89.29 [facility] [id number] [place] [address] 83209- 2325 Oct, Chronic pain G89.29 [facility] [id number] [place] [address] 98170- 5368 Oct, UTI symptoms R39.9 [facility] [id number] [place] [address] 71654- 9823 Oct, Chronic pain G89.29 [facility] [address] 04360- 7785 20 Oct, 2015 Chronic pain G89.29 [facility] [id number] [place] [address] 11140- 1806 13 Oct, 2015 Chronic pain G89.29 [facility] [id number] [place] [address] 73184- 5367 Oct, Right upper quadrant abdominal pain R10.11 [facility] [address], [place] [address]- 3131 Oct, Chronic pain G89.29 [facility] [address], [place] [address]- 3193 Oct, [facility] [id number] [place] [address] 77414- 0408 September, Chronic pain G89.29 [facility] [id number] [place] [address] 41587- 4197 September, Dysuria R30.0 and Urinary tract infection without hematuria , site unspecified N39.0 [facility] [address] [address]- 2724 September, [facility] [id number] [place] [address] 70052- 7266 September, Dysuria R30.0 [facility] [id number] [place] [address] 07113- 4686 September, Chronic pain G89.29 [facility] [id number] [place] [address] 42331- 1167 September, Chronic pain G89.29 and Essential hypertension I10 [facility] [address] [address]- 0727 September, [facility] [address] [address]- 1961 September, [facility] [id number] [place] [address] 17364- 8830 September, [facility] [id number] [place] [address] 42389- 8204 Aug, UTI symptoms R39.9 [facility] [address], [place] [address]- 1694 Aug, Dysuria R30.0 [facility] [address], [place] [address]- 0847 Aug, [facility] [id number] [place] [address] 07684- 6386 Aug, [facility] [id number] [place] [address] 18045- 2500 Aug, [facility] [id number] [place] [address] 25787- 3047 Aug, Chronic pain G89.29 [facility] [id number] [place] [address] 03102- 4364 Aug, Dysthymia F34.1 [facility] [id number] [place] [address] 30342- 3808 Aug, Conjunctivitis, unspecified conjunctivitis type, unspecified laterality H10.9 [facility] [id number] [place] [address] 15884- 4519 Jul, Chronic pain G89.29 ; Back pain M54.9 ; Tobacco abuse Z72.0 and Weight decrease R63.4 [facility] [id number] [place] [address] 80359- 4611 Jul, [facility] [id number] [place] [address] 30254- 6698 Jul, [facility] [id number] [place] [address] 59237- 9840 24 Jul, 2015 Chronic pain G89.29 [facility] [id number] [place] [address] 73510- 1027 Jul, [facility] [id number] [place] [address] 96996- 5788 Jul, [facility] [id number] [place] [address] 98442- 9733 Jul, [facility] [id number] [place] [address] 69148- 7126 17 Jul, 2015 [facility] [id number] [place] [address] 82835- 5608 17 Jul, 2015 Chronic pain G89.29 [facility] [id number] [place] [address] 63651- 9406 16 Jul, 2015 Chronic pain G89.29 [facility] [id number] [place] [address] 31479- 6390 15 Jul, 2015 [facility] [id number] [place] [address] 30181- 4639 Jul, [facility] [id number] [place] [address] 56793- 5572 Jul, [facility] [facility] [id number] [place] [address] 24768- 0804 Jul, [facility] [id number] [place] [address] 98788- 9390 Jun, [facility] [id number] [place] [address] 56202- 8926 Jun, Depression, unspecified depression type F32.9 [facility] [id number] [place] [address] 30871- 4006 Jun, Pain in right knee M25.561 [facility] [id number] [place] [address] 22211- 2249 24 Jun, 2015 Chronic pain G89.29 ; Back pain M54.9 ; Bone pain M89.8X9 and Weight loss R63.4 [facility] [id number] [place] [address] 01428- 0475 Jun, [facility] [id number] [place] [address] 29234- 1030 May, [facility] [address] [address] 67[address] May, UTI symptoms R39.9 ; Pain in right knee M25.561 ; Right low back pain, with sciatica presence unspecified M54.5 ; Right foot pain M79.671 ; Hypokalemia E87.6 and Screening, lipid Z13.220 [facility] [id number] [place] [address] 11028- 4081 May, [facility] [address] 17275- 0834 May, [facility] [address] 92130- 5528 Mar, [facility] [address] 98849- 0311 Mar, [facility] [address] 08394- 9565 Mar, Hypokalemia E87.6 [facility] [address] 73484- 0198 Mar, Pain in right leg M79.604 ; Encounter for immunization Z23 ; Pain in right knee M25.561 and Hypokalemia E87.6 [facility] [id number] [place] [address] 87158- 3344 Jan, [facility] [id number] [place] [address] 84003- 1367 Jan, [facility] [id number] [place] [address] 23232 2545 Jan, Abdominal pain, generalized 789.07 [facility] [id number] [place] [address] 12698- 3237 Jan, Abdominal pain, generalized 789.07 [facility] [id number] [place] [address] 64421- 1466 Dec, [facility] [id number] [place] [address] 96160- 7365 Dec, [facility] [address] [address]- 4568 Dec, [facility] [address] [address]- 3137 Nov, Hallux valgus 735.0 and Hammertoe 735.4 [facility] [address] [address]- 0486 Nov, [facility] [id number] [place] [address] 77337- 5582 Nov, Hallux valgus 735.0 and Hammer toe 735.4 [facility] [id number] [place] [address] 56684- 2456 Oct, [facility] [address] [address]- 3223 Oct, [facility] [id number] [place] [address] 15360- 4696 Oct, Pre-op evaluation V72.84 [facility] [address] [address]- 9517 Oct, [facility] [address] [address]- 4709 Oct, [facility] [address] [address]- 3113 September, [facility] [address] [address]- 1734 September, [facility] [id number] [address]- 0106 September, Hallux valgus (acquired) 735.0 and Other hammer toe ( acquired) 735.4 [facility] [id number] [address]- 4828 Aug, [facility] [address] [address]- 4603 Aug, [facility] [place] [facility] [address] [id number] [place] [address]- 1488 Jul, [facility] [place] [facility] [address] [id number] [place] [address]- 5422 Jul, [facility] [place] [facility] [address] [id number] [place] [address]- 5635 Jul, [facility] [place] [facility] [address] [id number] [place] [address]- 3817 Jul, 2014 [facility] [place] [facility] [address] [id number] [place] [address]- 1264 Jul, [facility] [place] [facility] [address] [id number] [place] [address]- 9950 Jul, [facility] [place] [facility] [address] [facility] [id number] [place] [address]- 9657 Jul, [facility] [place] [facility] [address] [id number] [place] [address]- 5461 Jul, [facility] [place] [facility] [address] [id number] [place] [address]- 9565 Jun, [facility] [place] [facility] [address] [id number] [place] [address]- 2025 Jun, [facility] [place] [facility] [address] [id number] [place] [address]- 9448 Jun, 2014 [facility] [place] [facility] [address] [id number] [place] [address]- 7538 Jun, 2014 [facility] [place] [facility] [address] [id number] [place] [address]- 3229 Jun, 2014 [facility] [place] [facility] [address] [id number] [place] [address]- 5527 Jun, 2014 [facility] [place] [facility] [address] [facility] [id number] [place] [address]- 4741 Jun, [facility] [place] [facility] [address] [id number] [place] [address]- 7012 Jun, [facility] [place] [facility] [address] [id number] [place] [address]- 1564 Jun, [facility] [place] [facility] [address] [id number] [place] [address]- 4256 Jun, [facility] [place] [facility] [address] [id number] [place] [address]- 3598 May, [facility] [place] [facility] [address] [id number] [place] [address]- 0733 May, [facility] [place] [facility] [address] [id number] [place] [address]- 0411 May, [facility] [place] [facility] [address] [id number] [place] [address]- 2599 May, [facility] [place] [facility] [address] [id number] [place] [address]- 4832 May, [facility] [place] [facility] [address] [id number] [place] [address]- 4299 May, [facility] [place] [facility] [address] [id number] [place] [address]- 7509 May, [facility] [place] [facility] [address] [id number] [place] [address]- 8989 May, [facility] [place] [facility] [address] [id number] [place] [address]- 1249 May, [facility] [place] [facility] [address] [id number] [place] [address]- 7853 May, [facility] [place] [facility] [address] [id number] [place] [address]- 9053 May, [facility] [place] [facility] [address] [id number] [place] [address]- 6976 May, [facility] [place] [facility] [address] [id number] [place] [address]- 3909 May, [facility] [place] [facility] [address] [id number] [place] [address]- 3022 May, [facility] [place] [facility] [address] [id number] [place] [address]- 4619 May, [facility] [place] [facility] [address] [id number] [place] [address]- 2350 May, [facility] [place] [facility] [address] [id number] [place] [address]- 6073 May, [facility] [place] [facility] [address] [id number] [place] [address]- 0983 May, [facility] [place] [facility] [address] [id number] [place] [address]- 7019 Apr, [facility] [place] [facility] [address] [id number] [place] [address]- 6534 Apr, [facility] [place] [facility] [address] [id number] [place] [address]- 1066 Apr, [facility] [place] [facility] [address] [id number] [place] [address]- 7347 Apr, [facility] [place] [facility] [address] [id number] [place] [address]- 6469 Apr, [facility] [place] [facility] [address] [id number] [place] [address]- 1410 Apr, [facility] [place] [facility] [address] [id number] [address]- 0597 Apr, [facility] [place] [facility] [address] [id number] [place] 6833 Apr, [facility] [place] [facility] [address] [id number] [place] [address]- 5821 Apr, [facility] [place] [facility] [address] [id number] [place] [address]- 5153 Mar, [facility] [place] [facility] [address] [id number] [place] [address]- 4923 Mar, [facility] [place] [facility] [address] [id number] [place] [address]- 9521 Mar, [facility] [place] [facility] [address] [id number] [place] [address]- 0502 Mar, [facility] [place] [facility] [address] [id number] [place] [address]- 2345 Mar, [facility] [place] [facility] [address] [id number] [place] [address]- 7802 Feb, [facility] [place] [facility] [address] [id number] [place] [address]- 3681 Feb, [facility] [place] [facility] [address] [id number] [place] [address]- 0038 Feb, [facility] [place] [facility] [address] [id number] [place] [address]- 3689 Feb, [facility] [place] [facility] [address] [id number] [place] [address]- 0520 Feb, [facility] [place] [facility] [address] [id number] [place] [address]- 7743 Feb, [facility] [place] [facility] [address] [id number] [place] [address]- 8746 Feb, [facility] [place] [facility] [address] [id number] [place] [address]- 3540 Feb, [facility] [place] [facility] [address] [id number], [place] [address]- 4522 Feb, [facility] [place] [facility] [address] [id number] [place] [address]- 6938 Feb, [facility] [place] [facility] [address] [id number] [place] [address]- 0690 Feb, [facility] [place] [facility] [address] [id number] 3462 Feb, [facility] [place] [facility] [address] [id number] [place] [address]- 2338 Feb, 2013 [facility] [place] [facility] [address] [id number] [place] [address]- 4986 Feb, [facility] [place] [facility] [address] [id number] [place] [address]- 1311 Feb, [facility] [place] [facility] [address] [id number] [place] [address]- 5919 Feb, [facility] [place] [facility] [address] [id number] [place] [address]- 0804 Jan, [facility] [place] [facility] [address] [id number] [place] [address]- 4048 23 Jan, 2014 [facility] [place] [facility] [address] [id number] [place] [address]- 0849 20 Jan, 2014 [facility] [place] [facility] [address] [id number] [place] [address]- 3727 19 Jan, 2014 [facility] [place] [facility] [address] [id number] [place] [address]- 1987 Jan, [facility] [place] [facility] [address] [id number] [place] [address]- 6835 Jan, [facility] [place] [facility] [address] [id number] [place] [address]- 9817 Jan, [facility] [place] [facility] [address] [id number] [place] [address]- 1579 Jan, [facility] [place] [facility] [address] [id number] [place] [address]- 1927 Dec, [facility] [place] [facility] [address] [id number] [place] [address]- 3766 Dec, [facility] [place] [facility] [address] [id number] [place] [address]- 4565 Nov, [facility] [place] [facility] [address] [id number] [place] [address]- 1166 Nov, [facility] [place] [facility] [address] [id number] [place] [address]- 9323 Nov, [facility] [place] [facility] [address] [id number] [place] [address]- 7220 Nov, [facility] [place] [facility] [address] [id number] [place] [address]- 4405 Nov, [facility] [place] [facility] [address] [id number] [place] [address]- 7527 Nov, [facility] [place] [facility] [address] [id number] [place] [address]- 2661 Nov, [facility] [place] [facility] [address] [id number] [place] [address]- 5314 Nov, [facility] [place] [facility] [address] [id number] [place] [address]- 8013 Nov, [facility] [place] [facility] [address] [id number] [place] [address]- 3881 Oct, [facility] [place] [facility] [address] [id number] [place] [address]- 5086 Oct, [facility] [place] [facility] [address] [id number] [place] [address]- 5774 Oct, [facility] [place] [facility] [address] [id number] [place] [address]- 7225 Oct, [facility] [place] [facility] [address] [id number] [place] [address]- 1602 Oct, [facility] [place] [facility] [address] [id number] [place] [address]- 6841 Oct, [facility] [place] [facility] [address] [id number] [place] [address]- 2609 September, [facility] [place] [facility] [address] [id number] [place] [address]- 6238 September, [facility] [place] [facility] [address] [id number] [place] [address]- 9531 September, [facility] [address] [id number] [place] [address]- 7899 September, [facility] [address] [id number] [place] [address]- 6582 September, [facility] [address] [id number] [place] [address]- 2403 September, [facility] [address] [id number] [place] [address]- 2060 September, [facility] [address] [id number] [place] [address]- 3556 September, [facility] [address] [id number] [place] [address]- 5169 September, [facility] [address] [id number] [place] [address]- 1785 September, [facility] [address] [id number] [place] [address]- 6154 September, [facility] [address] [id number] [place] [address]- 8407 September, [facility] [address] [id number] [place] [address]- 4294 September, [facility] [address] [id number] [place] [address]- 2151 September, [facility] [address] [id number] [place] [address]- 8833 September, [facility] [address] [id number] [place] [address]- 1086 September, [facility] [address] [id number] [place] [address]- 5371 September, [facility] [address] [id number] [place] [address]- 9423 September, [facility] [place] [facility] [address] [id number] [place] [address]- 4164 September, [facility] [place] [facility] [address] [id number] [place] [address]- 8101 September, [facility] [place] [facility] [address] [id number] [place] [address]- 5194 Aug, [facility] [place] [facility] [address] [id number] [place] [address]- 7096 Aug, [facility] [place] [facility] [address] [id number] [place] [address]- 2789 Aug, [facility] [place] [facility] [address] [id number] [place] [address]- 5072 Aug, [facility] [place] [facility] [address] [id number] [place] [address]- 0752 Aug, [facility] [place] [facility] [address] [id number] [place] [address]- 0526 Aug, [facility] [place] [facility] [address] [id number] [place] [address]- 6892 Aug, [facility] [place] [facility] [address] [id number] [place] [address]- 3240 Aug, [facility] [place] [facility] [address] [id number] [place] [address]- 8695 Aug, [facility] [place] [facility] [address] [id number] [place] [address]- 5148 Aug, [facility] [place] [facility] [address] [id number] [place] [address]- 5890 Aug, [facility] [place] [facility] [address] [id number] [place] [address]- 4847 Aug, [facility] [place] [facility] [address] [id number] [place] [address]- 3543 Aug, [facility] [place] [facility] [address] [id number] [place] [address]- 2286 Aug, [facility] [place] [facility] [address] [id number] [place] [address]- 3606 Aug, [facility] [place] [facility] [address] [id number] [place] [address]- 8212 Jul, [facility] [place] [facility] [address] [id number] [place] 0564 31 Jul, 2013 [facility] [place] [facility] [address] [id number] [place] [address]- 2959 27 Jul, 2013 [facility] [place] [facility] [address] [id number] [place] [address]- 2940 27 Jul, 2013 [facility] [place] [facility] [address] [id number] [place] [address]- 1768 Jul, [facility] [place] [facility] [address] [id number] [place] [address]- 4236 Jul, [facility] [place] [facility] [address] [id number] [place] [address]- 7858 18 Jul, 2013 [facility] [place] [facility] [address] [id number] [place] [address]- 5801 18 Jul, 2013 [facility] [place] [facility] [address] [id number] [place] [address]- 0874 Jul, [facility] [place] [facility] [address] [id number] [place] [address]- 6252 06 Jul, 2013 [facility] [place] [facility] [address] [id number] [place] [address]- 5615 Jul, [facility] [place] [facility] [address] [id number] [place] [address]- 1961 04 Jul, 2013 [facility] [place] [facility] [address] [id number] [place] [address]- 8160 Jul, [facility] [place] [facility] [address] [id number] [place] [address]- 5334 Jul, [facility] [place] [facility] [address] [id number] [place] [address]- 5107 Jul, [facility] [place] [facility] [address] [id number] [place] [address]- 3043 Jun, [facility] [place] [facility] [address] [id number] [place] [address]- 0226 Jun, [facility] [place] [facility] [address] [id number] [place] [address]- 9996 Jun, [facility] [place] [facility] [address] [id number] [place] [address]- 3813 Jun, [facility] [place] [facility] [address] [id number] [place] [address]- 7411 Jun, [facility] [place] [facility] [address] [id number] [place] [address]- 4924 Jun, [facility] [place] [facility] [address] [id number] [place] [address] May, [facility] [place] [facility] [address] [id number] [place] [address] May, [facility] [place] [facility] [address] [id number] [place] [address] May, [facility] [place] [facility] [address] [id number] [place] [address] May, [facility] [place] [facility] [address] [id number] [place] [address] May, [facility] [place] [facility] [address] [id number] [place] [address] May, [facility] [place] [facility] [address] [id number] [place] [address] May, [facility] [place] [facility] [address] [id number] [place] [address] May, [facility] [place] [facility] [address] [id number] [place] [address] May, [facility] [address] [id number] [place] [address] May, [facility] [place] [facility] [address] [id number] [place] [address] May, [facility] [place] [facility] [address] [id number] [place] [address] May, [facility] [place] [facility] [address] [id number] [place] [address]69 May, [facility] [place] [facility] [address] [id number] [place] [address] May, [facility] [place] [facility] [address] [id number] [place] [address] May, [facility] [place] [facility] [address] [id number] [place] [address] Apr, [facility] [place] [facility] [address] [id number] [place] [address]69 Apr, [facility] [place] [facility] [address] [id number] [place] [address] 9668 Apr, [facility] [place] [facility] [address] [id number] [place] [address]267 Apr, [facility] [place] [facility] [address] [id number] [place] [address] Apr, [facility] [place] [facility] [address] [id number] [place] [address] 46[address] Apr, [facility] [place] [facility] [address] [id number] [place] [address] Apr, [facility] [place] [facility] [address] [id number] [place] [address] 37[address] Apr, [facility] [place] [facility] [address] [id number] [place] [address]472 Apr, [facility] [place] [facility] [address] [id number] [place] [address] 48[address] Apr, [facility] [address] [id number] [place] [address] Mar, [facility] [address] [id number] [place] [address]65 Mar, [facility] [address] [id number] [place] [address] Mar, [facility] [address] [id number] [place] [address] 29[address] Mar, [facility] [address] [id number] [place] [address]- 0747 Mar, [facility] [address] [id number] [place] [address] 98[address] Mar, [facility] [address] [id number] [place] [address] 2548 Mar, [facility] [address] [id number] [place] [address] 1245 Mar, [facility] [address] [id number] [place] [address] 45[address] Mar, [facility] [address] [id number] [place] [address] Mar, [facility] [address] [id number] [place] [address] Mar, [facility] [address] [id number], [place] [address] Mar, [facility] [place] [facility] [address] [id number] [place] [address] 6120 Mar, [facility] [address] [id number] [place] [address]45 Mar, [facility] [address] [id number] [place] [address]- [address] Mar, [facility] [place] [facility] [address] [id number] [place] [address]- [address] 18 Mar, 2013 [facility] [place] [facility] [address] [id number] [place] [address]- [address] Mar, [facility] [place] [facility] [address] [id number] [place] [address]- 7968 Mar, [facility] [place] [facility] [address] [id number] [place] [address] 2217 Mar, [facility] [place] [facility] [address] [id number] [place] [address]- 9072 Mar, [facility] [place] [facility] [address] [id number] [place] [address]- 5056 Mar, [facility] [place] [facility] [address] [id number] [place] [address]- 8934 Mar, [facility] [place] [facility] [address] [id number] [place] [address]- [address]300 Mar, [facility] [place] [facility] [address] [id number] [place] [address]- 8220 Feb, [facility] [place] [facility] [address] [id number], [place] [address] Feb, [facility] [place] [facility] [address] [id number], [place] [address] Feb, [facility] [place] [facility] [address] [id number], [place] [address] 16 Feb, 2013 [facility] [place] [facility] [address] [id number] [place] [address] 15 Feb, 2013 [facility] [place] [facility] [address] [id number], [place] [address]- [address] Feb, [facility] [place] [facility] [address] [id number] [address] Feb, [facility] [place] [facility] [address] [id number] [place] [address]- [address] 07 Feb, 2013 [facility] [address] [id number] [place] [address]- [address] 04 Feb, 2013 [facility] [place] [facility] [address] [id number] [place] [address]- [address] 03 Feb, 2013 [facility] [place] [facility] [address] [id number] [place] [address]- 8[address] 30 Jan, 2013 [facility] [place] [facility] [address] [id number] [place] [address]- 2692 26 Jan, 2013 [facility] [place] [facility] [address] [id number] [place] [address]- 1501 24 Jan, 2013 [facility] [place] [facility] [address] [id number] [place] [address]- 8864 23 Jan, 2013 [facility] [address] [id number] [place] [address]- [address]341 17 Jan, 2013 [facility] [place] [facility] [address] [id number] [place] [address]- 1166 Dec, [facility] [place] [facility] [address] [address] [id number] [place] [address] Dec, [facility] [place] [facility] [address] [id number] [place] [address] 16 Dec, 2012 [facility] [place] [facility] [address] [id number] [place] [address] 7964 15 Dec, 2012 [facility] [place] [facility] [address] [id number] [place] [address] 0[address] 14 Dec, 2012 [facility] [place] [facility] [address] [id number] [place] [address] 0556 Dec, [facility] [place] [facility] [address] [id number] [place] [address] 3529 Dec, [facility] [place] [facility] [address] [id number] [place] [address] Nov, [facility] [place] [facility] [address] [id number] [place] [address] 16 Nov, 2012 [facility] [address] [id number] [place] [address] 3942 15 Nov, 2012 [facility] [place] [facility] [address] [id number] [place] [address]- 2546 05 Nov, 2012 [facility] [place] [facility] [address] [id number] [place] [address]- 0546 Nov, [facility] [place] [facility] [address] [id number] [place] [address] 119[address] Oct, [facility] [place] [facility] [address] [id number] [place] [address] 3134 Oct, [facility] [address] [id number] [place] [address] 4206 Oct, [facility] [address] [id number] [place] [address]- 0161 September, [facility] [address] [id number] [place] [address] 1794 September, [facility] [address] [id number] [place] [address] 9452 September, [facility] [address] [id number] [place] [address]- 4562 September, [facility] [address] [id number] [place] [address] September, [facility] [place] [facility] [address] [id number] [place] [address] September, [facility] [place] [facility] [address] [id number] [place] [address]- 7666 September, [facility] [place] [facility] [address] [id number] [place] [address] 6132 Aug, [facility] [place] [facility] [address] [id number] [place] [address]- 9984 23 Aug, 2012 [facility] [address] [id number] [place] [address]- 2686 11 Aug, 2012 [facility] [place] [facility] [address] [id number] [place] [address]- 6924 29 Jul, 2012 [facility] [address] [facility] [id number] [place] [address]- 0522 27 Jul, 2012 [facility] [place] [facility] [address] [facility] [id number] [place] [address]- 1618 26 Jul, 2012 [facility] [address] [facility] [id number] [place] [address]- 5701 20 Jul, 2012 [facility] [place] [facility] [address] [facility] [id number] [place] [address]- 5548 18 Jul, 2012 [facility] [address] [facility] [id number] [place] [address]- 2342 18 Jul, 2012 [facility] [place] [facility] [address] [facility] [id number], [place] [address]- 7976 13 Jul, 2012 [facility] [place] [facility] [address] [facility] [id number] [place] [address]- 1898 28 Jun, 2012 [facility] [place] [facility] [address] [facility] [id number] [place] [address]- 0209 27 Jun, 2012 [facility] [place] [facility] [address] [facility] [id number], [place] [address]26 22 Jun, 2012 [facility] [place] [facility] [address] [facility] [id number], [place] [address]- 6[address] 20 Jun, 2012 [facility] [place] [facility] [address] [facility] [id number] [place] [address]- 5055 15 Jun, 2012 [facility] [place] [facility] [address] [facility] [id number], [place] [address]- 2056 15 Jun, 2012 [facility] [place] [facility] [address] [facility] [id number] [place] [address]- 9223 13 Jun, 2012 [facility] [place] [facility] [address] [id number] [place] [address]- 6186 Jun, [facility] [address] [id number] [place] [address]- 2696 Jun, [facility] [place] [facility] [address] [id number] [place] [address]- 2546 Jun, [facility] [place] [facility] [address] [id number] [place] [address]- 4816 May, [facility] [place] [facility] [address] [id number] [place] [address]- 9859 May, [facility] [place] [facility] [address] [id number] [place] [address]- 6143 May, [facility] [address] [id number] [place] [address]- 4364 May, [facility] [address] [id number] [place] [address]- 9322 May, [facility] [address] [id number] [place] [address]- 5398 May, [facility] [address] [id number] [place] [address]- 8562 Apr, [facility] [address] [id number] [place] [address]- 7819 31 Apr, 2012 [facility] [place] [facility] [address] [id number] [place] [address]- 8316 Apr, [facility] [place] [facility] [address] [id number] [place] [address]- 1731 28 Apr, 2012 [facility] [place] [facility] [address] [id number] [place] [address]- 6355 26 Apr, 2012 [facility] [place] [facility] [address] [id number] [place] [address]- 0639 20 Apr, 2012 [facility] [place] [facility] [address] [id number] [address]- 5795 Apr, [facility] [place] [facility] [address] [id number] [place] [address]- 8153 Mar, [facility] [place] [facility] [address] [id number] [place] [address]- 7731 29 Mar, 2012 [facility] [place] [facility] [address] [facility] [id number] [place] [address]- 9645 Mar, [facility] [place] [facility] [address] [id number], [place] [address]- 8357 Mar, [facility] [place] [facility] [address] [id number] [place] [address]- 5586 Mar, [facility] [place] [facility] [address] [id number] [place] [address]- 9260 Mar, [facility] [place] [facility] [address] [id number] [place] [address]- 2047 Mar, [facility] [place] [facility] [address] [id number], [place] [address]- 4923 Mar, [facility] [place] [facility] [address] [id number] [place] [address]- 8561 Mar, [facility] [place] [facility] [address] [id number] [place] [address]- 0961 Mar, [facility] [place] [facility] [address] [id number], [place] [address]- 0066 Mar, [facility] [place] [facility] [address] [id number], [place] [address]- 8115 Mar, [facility] [place] [facility] [address] [id number] [place] [address]- 7424 Mar, [facility] [place] [facility] [address] [facility] [id number], [place] [address]- 1856 Mar, [facility] [place] [facility] [address] [facility] [id number], [place] [address]- 1094 Mar, [facility] [place] [facility] [address] [id number] [place] [address] 2544 Mar, [facility] [place] [facility] [address] [id number] [place] [address]- 1254 Mar, [facility] [place] [facility] [address] [id number] [place] [address]- 4905 Feb, [facility] [place] [facility] [address] [id number] [place] [address]- 0024 Feb, [facility] [place] [facility] [address] [id number] [place] [address]- 8558 Feb, [facility] [place] [facility] [address] [id number] [place] [address]- 2762 Feb, [facility] [place] [facility] [address] [id number] [place] [address]- 3974 Feb, [facility] [place] [facility] [address] [id number] [place] [address]- 4122 Feb, [facility] [place] [facility] [address] [id number] [place] Feb, [facility] [place] [facility] [address] [facility] [id number] [place] [address]- 5409 Feb, [facility] [place] [facility] [address] [facility] [id number] [place] [address]39 Feb, [facility] [place] [facility] [address] [id number] [place] [address]- 5438 Feb, [facility] [place] [facility] [address] [id number] [place] [address]- 8293 Feb, [facility] [place] [facility] [address] [id number] [place] [address]- 2926 27 Jan, 2012 [facility] [place] [facility] [address] [id number] [place] [address]- 9146 Jan, [facility] [place] [facility] [address] [id number] [place] [address]- 7724 13 Jan, 2012 [facility] [place] [facility] [address] [id number] [place] [address]- 0053 12 Jan, 2012 [facility] [place] [facility] [address] [id number] [place] [address]- 3183 Jan, [facility] [place] [facility] [address] [id number] [place] [address]- 6179 Dec, [facility] [place] [facility] [address] [id number] [place] [address]- 3709 Dec, [facility] [place] [facility] [address] [id number] [place] [address]- 3866 Dec, [facility] [place] [facility] [address] [id number] [place] [address]- 2864 Dec, [facility] [place] [facility] [address] [id number] [place] [address]- 5175 Dec, [facility] [place] [facility] [address] [id number] [place] [address]- 2728 Dec, [facility] [place] [facility] [address] [id number] [place] [address]- 1120 Dec, [facility] [place] [facility] [address] [id number] [place] [address]- 5228 Dec, [facility] [place] [facility] [address] [id number] [place] [address]- 6054 Nov, [facility] [place] [facility] [address] [id number] [place] [address]- 9523 Nov, [facility] [place] [facility] [address] [id number] [place] [address]- 3689 Nov, [facility] [place] [facility] [address] [id number] [place] [address]- 6426 Nov, [facility] [place] [facility] [address] [id number] [place] [address]- 4459 Nov, [facility] [place] [facility] [address] [id number] [place] [address]- 3356 Oct, [facility] [address] [id number] [place] [address]- 0080 Oct, [facility] [place] [facility] [address] [id number] [place] [address]- 9804 September, [facility] [address] [id number] [place] [address]- 3646 September, [facility] [address] [id number] [place] [address]- 8054 September, [facility] [address] [id number] [place] [address]- 8779 September, [facility] [address] [id number] [place] [address]14 September, [facility] [address] [id number] [place] [address]- 6133 September, [facility] [address] [id number] [place] [address]- 1098 September, [facility] [address] [id number] [place] [address]- 0892 September, [facility] [address] [id number] [place] [address]- 9336 September, [facility] [address] [id number] [place] [address]- 9295 September, [facility] [place] [facility] [address] [id number] [place] [address]- 1554 September, [facility] [place] [facility] [address] [id number] [place] [address]- 1418 September, [facility] [place] [facility] [address] [id number] [place] [address]- 1381 September, [facility] [place] [facility] [address] [id number] [place] [address]- 9664 September, [facility] [place] [facility] [address] [id number] [place] [address]- 7920 24 Aug, 2011 [facility] [address] [id number] [place] [address]- 6253 20 Aug, 2011 [facility] [place] [facility] [address] [id number] [place] [address]- 9486 13 Aug, 2011 [facility] [address] [id number] [place] [address]- 0300 11 Aug, 2011 [facility] [place] [facility] [address] [id number] [place] [address]- 0022 23 Jul, 2011 [facility] [place] [facility] [address] [id number] [place] [address]- 0102 13 Jul, 2011 [facility] [place] [facility] [address] [facility] [id number] [place] [address]- 3434 13 Jul, 2011 [facility] [address] [id number] [place] [address]- 1514 28 Jun, [address] [facility] [address] [id number] [id number] 26 Jun, 2011 [facility] [address] [id number] [address]- 3088 13 Jun, 2011 [facility] [address] [id number] [place] [address]- 0793 10 Jun, 2011 [facility] [place] [facility] [address] [id number] [place] [address]- 8614 07 Jun, 2011 [facility] [place] [facility] [address] [id number] [place] [address]- 0826 07 Jun, 2011 [facility] [place] [facility] [address] [id number] [place] [address]- 4426 03 Jun, 2011 [facility] [place] [facility] [address] [id number] [place] [address]- 3957 02 Jun, 2011 [facility] [place] [facility] [address] [id number] [place] [address]- 8691 31 May, 2011 [facility] [address] [id number] [place] [address]- 0743 30 May, 2011 [facility] [place] [facility] [address] [id number] [place] [address]- 0203 May, [facility] [place] [facility] [address] [id number] [place] [address]- 6699 May, [facility] [place] [facility] [address] [id number] [place] [address]- 1459 May, [facility] [place] [facility] [address] [id number] [place] [address]- 9237 May, [facility] [place] [facility] [address] [id number] [place] [address]- 6318 May, [facility] [place] [facility] [address] [id number] [place] [address]- 9672 May, [facility] [place] [facility] [address] [id number] [place] [address]- 6998 May, [facility] [place] [facility] [address] [id number] [place] [address]- 5564 May, [facility] [place] [facility] [address] [id number] [place] [address]- 1191 May, [facility] [place] [facility] [address] [id number] [place] [address]- 5290 May, [facility] [place] [facility] [address] [id number] [place] [address]- 6570 May, [facility] [place] [facility] [address] [id number] [place] [address]- 7725 May, [facility] [place] [facility] [address] [id number] [place] [address]- 1413 Apr, [facility] [place] [facility] [address] [id number] [place] [address]- 0326 Apr, [facility] [place] [facility] [address] [id number] [place] [address]- 7594 05 Apr, 2011 [facility] [address] [id number] [place] [address]- 2076 17 Mar, 2011 [facility] [place] [facility] [address] [id number] [place] [address] 2546 Mar, [facility] [address] [id number] [place] [address]- 3396 31 Feb, 2011 [facility] [place] [facility] [address] [id number] [place] [address] 2546 26 Feb, 2011 [facility] [address] [id number] [place] [address]- 7997 Feb, [facility] [address] [id number] [place] [address]- 1724 20 Feb, 2011 [facility] [address] [id number] [place] [address]- 3987 13 Feb, 2011 [facility] [address] [id number] [place] [address]- 8741 28 Apr, 2010 [facility] [place] [facility] [address] [id number] [place] [address] 2546 22 Apr, 2010 [facility] [address] [id number] [place] [address] 2540 16 Apr, 2010 [facility] [place] [facility] [address] [id number] [place] [address] 2546 15 Apr, 2010 [facility] [place] [facility] [address] [id number] [place] [address] 2546 15 Apr, 2010 [facility] [place] [facility] [address] [id number] [place] [address] 2546 Apr, [facility] [place] [facility] [address] [id number] [place] [address]- 2546 24 Mar, 2010 [facility] [place] [facility] [address] [id number] [place] [address] 2548 17 Mar, 2010 [facility] [address] [id number], [place] [address]- 4410 17 Mar, 2010 [facility] [id number], [place] [address]- 2855 Feb, [facility] [address] [facility] [id number], [place] [address]- 2729 Feb, [facility] [address] [facility] [id number], [place] [address]- 1589 Feb, [facility] [address] [facility] [id number], [place] [address]- 8864 Feb, [facility] [id number], [place] [address]- 8695 Dec, [facility] [id number], [place] [address]- 9865 Dec, [facility] [id number], [place] [address]- 2747 Oct, [facility] [id number], [place] [address]- 9688 Mar, [facility] [address] [id number] [address]- 1529 Mar, [facility] [id number], [place] [address] September, IMMUNIZATIONS No Known Immunizations SOCIAL HISTORY Never Assessed REASON FOR VISIT Appointment Details PLAN OF CARE VITAL SIGNS MEDICATIONS Medication Instructions Dosage Frequency Start Date End Date Duration Status Lisinopril 20 MG Orally Once a day 1 tablet 24h September, 30 days Active Toprol XL 50 MG Orally once daily 1 tablet 24h Aug, Active RESULTS No Results PROCEDURES No Known [...]
--- OUTSIDE RECORDS SUMMARY | 2018-01-08 15:25 | XMS REPORT ---
Author Author VALERIE ZAVALA [facility] Address [address] [place] [address] Care Team Providers Care Multiple Resaw Operator Name Role Phone VALERIE ZAVALA Unavailable PROBLEMS Type Condition ICD9-CM Code [id number] Code Onset Dates Condition Status SNOMED Code Problem Generalized anxiety disorder F41.1 Active 41071484 Problem Hypokalemia E87.6 Active 601773869 Problem Right low back pain, with sciatica presence unspecified M54.5 Active 766202934 Problem Post-traumatic stress disorder, chronic F43.12 Active 53813438 Problem Pain in right knee M25.561 Active 02517265 Problem Gastroesophageal reflux disease without esophagitis K21.9 Active 292100454 Problem UTI symptoms R39.9 Active 49369805 Problem Essential hypertension I10 Active 73764561 Problem Anxiety F41.9 Active 79804150 Problem Neuropathy G62.9 Active 500055162 Problem Other chronic pain G89.29 Active 68803351 Problem Generalized abdominal pain R10.84 Active 867445509 Problem Chronic pain G89.29 Active 45273226 Problem Back pain M54.9 Active 616839047 Problem Right foot pain M79.671 Active 26560515 Problem Panic attacks F41.0 Active 684560790 Problem Other emphysema J43.8 Active 43598555 Problem Kidney stones N20.0 Active 76281993 Problem Renal calculus, right N20.0 Active 99451607 Problem Weight decrease R63.4 Active 743655406 Problem Tobacco abuse Z72.0 Active 31386217 Problem Bone pain M89.8X9 Active 45223846 Problem Depression, unspecified depression type F32.9 Active 48694555 Problem Insomnia, unspecified type G47.00 Active 945524084 Problem Pulmonary emphysema, unspecified emphysema type J43.9 Active 03665476 Problem Right upper quadrant abdominal pain R10.11 Active 995892821 Problem Weight loss R63.4 Active 472548305 ALLERGIES No Information ENCOUNTERS Encounter Location Date Diagnosis [facility] [address] [address] Dec, [facility] [address] [place] [address] 97474- 2779 Dec, [facility] [id number], [place] [address] Dec, Medicare welcome exam Z00.00 [facility] [id number] [place] [address] 15593- 5284 17 Nov, 2017 [facility] [id number] [place] [address] 69052- 7092 Nov, Pelvic pain R10.2 ; Acute pyelonephritis N10 and Essential hypertension I10 [facility] [id number], [place] [address] Oct, Medicare welcome exam Z00.00 [facility] [id number] [place] [address] 65026- 0386 Oct, Gross hematuria R31.0 ; Urinary tract infection without hematuria, site unspecified N39.0 and Weakness R53.1 [facility] [address], [place] [address] 9[address] Oct, [facility] [address] [address] 5[address] Oct, [facility] [address] [place] [address] 58178- 8459 Oct, Medicare welcome exam Z00.00 [facility] [address] [place] [address] 16003- 0447 September, Back pain M54.9 and Right anterior knee pain M25.561 [facility] [address], [place] [address] 3[address] September, [facility] [id number] [place] [address] 27062- 4879 September, [facility] [address], [place] [address] 8832 September, Essential hypertension I10 [facility] [id number] [place] [address] 94456- 2212 September, [facility] [id number] [place] [address] 91208- 3129 September, RLQ abdominal pain R10.31 ; Low back pain M54.5 and Other chronic pain G89.29 [facility] [id number] [place] [address] 28338- 1398 Aug, Medicare welcome exam Z00.00 [facility] [id number] [place] [address] 97371- 5046 Aug, [facility] [id number] [place] [address] 00281- 4105 Aug, Acute pyelonephritis N10 and Medicare welcome exam Z00.00 [facility] [id number] [place] [address] 61462 -0544 Aug, Dysuria R30.0 and Acute pyelonephritis N10 [facility] [id number] [place] [address] 01981- 3130 Aug, [facility] [id number] [place] [address] 32312- 7202 Aug, [facility] [id number] [place] [address] 04454- 6040 Aug, [facility] [id number] [place] [address] 32086- 7577 Aug, [facility] [id number] [place] [address] 04701- 5761 Jul, [facility] [id number] [place] [address] 50400- 3289 Jul, Renal calculus, right N20.0 and Medicare welcome exam Z00.00 [facility] [id number] [place] [address] 49675 -5018 Jul, Dysuria R30.0 and Renal calculus, right N20.0 [facility] [id number] [place] [address] 75424- 1305 Jul, Medicare welcome exam Z00.00 [facility] [address] 37080- 7817 Jun, Gastroesophageal reflux disease without esophagitis K21.9 and Generalized abdominal pain R10.84 [place] [address] 196619- 0037 Jun, Medicare welcome exam Z00.00 [place] [address] 99737- 0418 Jun, [place] [address] 97944- 6187 Jun, Medicare welcome exam Z00.00 and Encounter for screening mammogram for malignant neoplasm of breast Z12.31 [place] [facility] [address] 88432- 1564 Jun, Chronic pain G89.29 [facility] [id number] [place] [address] 34658- 2365 May, [facility] [address] 77065- 5387 May, Pelvic pain R10.2 [facility] [id number] [place] [address] 51190- 6600 May, Pelvic pain R10.2 [facility] [id number] [place] [address] 57734 -5845 May, Renal calculus, right N20.0 [facility] [address] 14523- 0964 May, Hematuria, unspecified type R31.9 and Nephrolithiasis N20.0 [facility] [address] [place] [address] 69737 -0938 May, Dysuria R30.0 and Nephrolithiasis N20.0 [facility] [address] [place] [address] 31217- 7930 May, [facility] [id number] [place] [address] 19342 -1015 May, Abdominal pain R10.9 and Kidney stone N20.0 [place] [facility] [id number] [place] [address] 55044- 6348 May, [place] [facility] [id number] [place] [address] 06035- 3638 May, Chronic pain G89.29 and Panic attacks F41.0 [facility] [facility] [id number] [place] [address] 42200- 8068 May, Urinary tract infection without hematuria, site unspecified N39.0 [place] [facility] [id number] [place] [address] 75086- 5933 Apr, Right lower quadrant abdominal pain R10.31 and Abnormal serum lipase level R74.8 [place] [facility] [address] [place] [address] 20130- 8548 Apr, Recurrent urinary tract infection N39.0 [facility] [facility] [id number] [place] [address] 63750- 3852 Apr, UTI symptoms R39.9 ; Recurrent urinary tract infection N39.0 and Pelvic pain R10.2 [facility] [facility] [id number] [place] [address] 78144- 7131 Apr, Chronic pain G89.29 and Panic attacks F41.0 [place] [address] [place] [address] 75483- 9466 Apr, Dysuria R30.0 [place] [facility] [address], [place] [address]- 9350 Apr, [facility] [id number] [place] [address] 01904- 4115 Apr, Dysuria R30.0 and Urinary tract infection without hematuria , site unspecified N39.0 [facility] [id number] [place] [address] 56904- 0639 Mar, UTI symptoms R39.9 [facility] [id number] [place] [address] 31977- 7862 Mar, [place] [facility] [id number] [place] [address] 38254- 4493 Mar, Panic attacks F41.0 and Chronic pain G89.29 [facility] [facility] [id number] [place] [address] 61416- 7257 Mar, [facility] [id number] [place] [address] 44054- 0243 Mar, Dysuria R30.0 [facility] [id number] [place] [address] 87857- 7680 Mar, Dysuria R30.0 [facility] [id number] [place] [address] 68589- 4241 Feb, Chronic pain G89.29 ; Shortness of breath R06.02 ; Weight loss R63.4 ; Encounter for immunization Z23 ; Bone pain M89.8X9 ; Right anterior knee pain M25.561 and Cough R05 [facility] [address] [place] [address] 05605- 5456 Feb, Shortness of breath R06.02 [place] [facility] [id number] [place] [address] 21862- 0114 Feb, [facility] [address] [place] [address] 85075- 0185 Feb, Panic attacks F41.0 and Chronic pain G89.29 [place] [facility] [id number] [place] [address] 53697- 9909 Feb, [place] [address] 13547- 0391 Feb, Panic attacks F41.0 ; Shortness of breath R06.02 and Encounter for immunization Z23 [place] [address] 99602- 8098 Jan, [place] [address] 93294- 2805 Jan, Anxiety F41.9 and Chronic pain G89.29 [place] [address] 73794- 7565 Dec, Anxiety F41.9 and Chronic pain G89.29 [place] [address] 61981- 8756 Nov, Chronic pain G89.29 [place] [address] 01418- 1588 Nov, Anxiety F41.9 [place] [address] 19344- 6053 Nov, Chronic pain G89.29 ; Essential hypertension I10 and Other emphysema J43.[address] 82587- 9702 Oct, Anxiety F41.9 [place] [address] 58749- 8947 Oct, [place] [address] 38840- 8843 Oct, Chronic pain G89.29 [place] [facility] [id number] [place] [address] 95381- 8094 September, Recurrent UTI N39.0 ; Neuropathy G62.9 and Anxiety F41.9 [place] [address] [place] [address]- 3751 September, [facility] [id number] [place] [address] 56414- 0143 September, Chronic pain G89.29 [facility] [id number] [address]- 6740 September, [facility] [id number] [place] [address] 08429- 6680 Aug, Post-traumatic stress disorder, chronic F43.12 ; Chronic urinary tract infection N39.0 ; Gastroesophageal reflux disease without esophagitis K21.9 ; Chronic pain G89.29 ; Essential hypertension I10 and Tobacco abuse Z72.0 [facility] [address], [place] [address]6340 Aug, [facility] [id number] [place] [address] 54634- 8340 Aug, Chronic pain G89.29 [facility] [id number] [place] [address] 42873- 9582 Aug, Insomnia, unspecified type G47.00 [facility] [id number] [place] [address] 46894- 3546 Aug, [facility] [address] [place] [address] 42175- 7971 Jul, Chronic pain G89.29 [facility] [address] [place] [address] 90122- 6839 Jul, [facility] [address], [place] [address]- 5603 Jul, [facility] [id number] [place] [address] 16845- 1342 Jul, [facility] [address], [place] [address]- 3051 15 Jul, 2016 Recurrent UTI (urinary tract infection) N39.0 [facility] [address] [place] [address] 31352- 7647 Jul, [facility] [id number] [place] [address] 47277- 1397 Jun, Chronic pain G89.29 [facility] [id number] [place] [address] 08818- 7381 Jun, [facility] [address] 92220- 4753 Jun, [facility] [id number] [place] [address] 28205- 9413 May, Chronic pain G89.29 [place] [id number] [place] [address] 00159- 0341 May, Weight loss R63.4 and Shortness of breath R06.02 [place] [id number] [place] [address] 01728- 6793 May, Chronic pain G89.29 ; Weight loss R63.4 and Tobacco abuse Z72.0 [place] [id number] [place] [address] 82523- 5415 May, [facility] [id number] [place] [address] 91858- 0728 May, Hypoxia R09.02 [facility] [id number] [place] [address] 88990- 5070 May, [facility] [id number] [place] [address] 73824- 5208 May, Pulmonary emphysema, unspecified emphysema type J43.9 [facility] [id number] [place] [address] 84180 -4685 May, [facility] [id number] [place] [address] 05224- 9594 May, [facility] [id number] [place] [address] 02112- 2097 May, [facility] [id number] [place] [address] 09721- 2743 May, Chronic pain G89.29 ; Encounter for immunization Z23 ; Right anterior knee pain M25.561 and Cough R05 [facility] [id number] [place] [address] 36964- 7621 Apr, Chronic pain G89.29 [facility] [address] 05751- 2194 Apr, [facility] [address] 15115- 2990 Apr, Generalized anxiety disorder F41.1 and Depression, unspecified depression type F32.9 [facility] [address] [place] [address] 61480- 8840 Apr, Chronic pain G89.29 ; Hypokalemia E87.6 and Insomnia, unspecified type G47.00 [facility] [address] [place] [address] 30676- 8664 Apr, [facility] [address] 01486- 6097 Apr, Chronic pain G89.29 [facility] [address] [place] [address] 88596- 9902 Apr, [facility] [id number] [place] [address] 18006- 5921 Mar, [facility] [address] [place] [address] 39390- 7159 Mar, Insomnia, unspecified type G47.00 [facility] [address] 00917- 1028 Mar, Chronic pain G89.29 [facility] [address] [place] [address] 83460- 4539 Mar, [facility] [address] [place] [address]- 1628 19 Feb, 2016 [facility] [address], [place] [address]- 1615 Feb, [facility] [address], [place] [address]- 6042 Feb, [facility] [id number] [place] [address] 12478- 2493 Feb, [facility] [id number] [place] [address] 80648- 9502 Feb, [facility] [id number] [place] [address] 68726- 3323 29 Jan, 2016 [facility] [address] [place] [address] 91311- 2237 26 Jan, 2016 [facility] [address] [place] [address] 39692- 0762 20 Jan, 2016 [facility] [address] [place] [address] 20809- 1058 13 Jan, 2016 [facility] [id number] [place] [address] 67899- 9174 12 Jan, 2016 [facility] [address], [place] [address]- 4344 07 Jan, 2016 Chronic pain G89.29 [facility] [id number] [place] [address] 67364- 7578 Jan, Chronic pain G89.29 and Fibromyalgia M79.7 [facility] [address] [place] [address] 16821- 8773 Dec, Depression, unspecified depression type F32.9 and Generalized anxiety disorder 300.02 [facility] [address], [place] [address]- 6936 Dec, Dysthymia F34.1 ; Insomnia, unspecified type G47.00 and Chronic pain G89.29 [facility] [id number] [place] [address] 49039- 5319 Dec, Chronic pain G89.29 [facility] [id number] [place] [address], [place] [address]- 4087 Dec, Insomnia, unspecified type G47.00 [facility] [address] [place] [address], [place] [address]- 8711 Dec, Fibromyalgia M79.7 and Chronic pain G89.29 [facility] [id number] [place] [address] 56006 254 Dec, [facility] [id number] [place] [address] 48011- 0016 Dec, [facility] [id number] [place] [address] 46537- 1302 Dec, [facility] [id number] [place] [address] 44076- 0607 Dec, [facility] [id number] [place] [address] 40664- 2547 Dec, Chronic pain G89.29 [facility] [id number] [place] [address] 48705- 3340 Dec, [facility] [id number] [place] [address] 90987- 3167 Dec, [facility] [id number] [place] [address] 82936- 3684 Dec, [facility] [id number] [place] [address] 18666- 2547 Dec, Chronic pain G89.29 and Dysthymia F34.1 [facility] [id number] [place] [address] 85601- 1217 Nov, [facility] [address] [place] [address] 65056- 1403 Nov, Hypokalemia E87.6 and Chronic pain G89.29 [facility] [address] [place] [address] 09661- 3476 Nov, Back pain M54.9 and Pain in right knee M25.561 [facility] [id number] [place] [address] 24505- 0396 Nov, [facility] [id number] [place] [address] 04763- 0746 Nov, Chronic pain G89.29 [facility] [id number] [place] [address] 49850 2542 Nov, Chronic pain G89.29 ; Weight loss R63.4 ; Bone pain M89.8X9 and Insomnia, unspecified type G47.00 [facility] [id number] [place] [address] 04271- 8020 Nov, Chronic pain G89.29 [facility] [id number] [place] [address] 23661- 3650 Nov, Chronic pain G89.29 [facility] [id number] [place] [address] 69324 2541 30 Oct, 2015 Chronic pain G89.29 [facility] [id number] [place] [address] 61259 2542 Oct, UTI symptoms R39.9 [facility] [address] [place] [address] 85499 2547 Oct, Chronic pain G89.29 [facility] [id number] [place] [address] 06842 254 20 Oct, 2015 Chronic pain G89.29 [facility] [id number] [place] [address] 34880 2546 13 Oct, 2015 Chronic pain G89.29 [facility] [address] [place] [address] 72954- 5265 06 Oct, 2015 Right upper quadrant abdominal pain R10.11 [facility] [address] [place] [address]- 3329 Oct, Chronic pain G89.29 [facility] [address] [place] [address]- 4928 Oct, [facility] [address] [place] [address]- 2296 September, Chronic pain G89.29 [facility] [address] [place] [address]- 6873 September, Dysuria R30.0 and Urinary tract infection without hematuria , site unspecified N39.0 [facility] [address] [place] [address] 56047- 6534 September, [facility] [address] [place] [address]- 2280 September, Dysuria R30.0 [facility] [id number] [place] [address] 00357- 2396 September, Chronic pain G89.29 [facility] [id number] [address] September, Chronic pain G89.29 and Essential hypertension I10 [facility] [id number] [address] September, [facility] [id number] [address] September, [facility] [id number] [address] September, [facility] [id number] [address] Aug, UTI symptoms R39.9 [facility] [id number] [address] Aug, Dysuria R30.0 [facility] [id number] [address] Aug, [facility] [id number] [address] Aug, [facility] [id number] [place] [address] 40807- 6133 Aug, [facility] [id number] [place] [address] 62678- 7175 Aug, Chronic pain G89.29 [facility] [id number] [place] [address] 59186- 4980 Aug, Dysthymia F34.1 [facility] [id number] [place] [address] 36830- 3747 Aug, Conjunctivitis, unspecified conjunctivitis type, unspecified laterality H10.9 [facility] [id number] [place] [address] 65840- 7162 Jul, Chronic pain G89.29 ; Back pain M54.9 ; Tobacco abuse Z72.0 and Weight decrease R63.4 [facility] [id number] [place] [address] 03331- 0568 30 Jul, 2015 [facility] [id number] [place] [address] 09985- 0558 30 Jul, 2015 [facility] [id number] [place] [address] 59733- 5406 24 Jul, 2015 Chronic pain G89.29 [facility] [id number] [place] [address] 89388- 4637 Jul, [facility] [id number] [address] Jul, [facility] [id number] [place] [address] 74826- 6363 18 Jul, 2015 [facility] [id number] [address] 17 Jul, 2015 [facility] [id number] [place] [address] 50887- 2768 17 Jul, 2015 Chronic pain G89.29 [facility] [id number] [address] 16 Jul, 2015 Chronic pain G89.29 [facility] [id number] [address] 15 Jul, 2015 [facility] [id number] [place] [address] 12394- 1681 Jul, [facility] [id number] [place] [address] Jul, [facility] [id number] [place] [address] 33972- 3505 Jul, [facility] [id number] [place] [address] 84171- 8344 Jun, [facility] [id number] [address] Jun, Depression, unspecified depression type F32.9 [facility] [id number] [address] Jun, Pain in right knee M25.561 [facility] [address], [place] [address] Jun, Chronic pain G89.29 ; Back pain M54.9 ; Bone pain M89.8X9 and Weight loss R63.4 [facility] [address], [place] [address] Jun, [facility] [address], [place] [address] May, [facility] [address], [place] [address] May, UTI symptoms R39.9 ; Pain in right knee M25.561 ; Right low back pain, with sciatica presence unspecified M54.5 ; Right foot pain M79.671 ; Hypokalemia E87.6 and Screening, lipid Z13.220 [facility] [id number] [place] [address] 7[address]- 8836 May, [facility] [id number] [place] [address] 97533 2546 May, [facility] [id number] [place] [address] 98946 2549 Mar, [facility] [id number] [place] [address] 56326 2546 Mar, [facility] [id number] [place] [address] 11034- 6405 Mar, Hypokalemia E87.6 [facility] [id number] [place] [address] 42783- 9991 Mar, Encounter for immunization Z23 ; Pain in right leg M79.604 ; Pain in right knee M25.561 and Hypokalemia E87.6 [facility] [id number] [place] [address] 88411- 5613 Jan, [facility] [id number] [place] [address] 68048 2545 Jan, [facility] [id number] [place] [address] 52196 2543 Jan, Abdominal pain, generalized 789.07 [facility] [id number] [place] [address] 17530 2546 Jan, Abdominal pain, generalized 789.07 [facility] [id number] [place] [address] 44795 2546 Dec, [facility] [id number] [place] [address] 23017 2543 Dec, [facility] [id number] [place] [address] 05217 2543 Dec, [facility] [address], [place] [address] Nov, Hallux valgus 735.0 and Hammertoe 735.4 [facility] [address], [place] [address] 4066 Nov, [facility] [address], [place] [address]- 0656 Nov, Hallux valgus 735.0 and Hammer toe 735.4 [facility] [address], [place] [address]- 4610 Oct, [facility] [id number] [place] [address] 33612- 9502 Oct, [facility] [id number] [place] [address] 55632- 5236 Oct, Pre-op evaluation V72.84 [facility] [id number] [place] [address] 42959- 4817 Oct, [facility] [id number] [place] [address] 81429- 2638 Oct, [facility] [id number] [place] [address] 78373- 9176 September, [facility] [address], [place] [address]- 2776 September, [facility] [address], [place] [address]- 2922 September, Hallux valgus (acquired) 735.0 and Other hammer toe ( acquired) 735.4 [facility] [address] 6[address] Aug, [facility] [address], [place] [address]- 2189 Aug, [facility] [address], [place] [address]- 0973 Jul, [facility] [place] [facility] [address] [id number] [place] [address]- 9312 Jul, [facility] [place] [facility] [address] [id number] [place] [address]- 5509 Jul, 2014 [facility] [place] [facility] [address] [id number] [place] [address]- 5690 Jul, 2014 [facility] [place] [facility] [address] [id number] [place] [address]- 1136 Jul, 2014 [facility] [place] [facility] [address] [id number] [place] [address]- 7857 Jul, [facility] [place] [facility] [address] [id number] [place] [address]- 2716 Jul, [facility] [place] [facility] [address] [facility] [id number] [place] [address]- 2904 Jul, [facility] [place] [facility] [address] [id number] [place] [address]- 1315 Jun, 2014 [facility] [place] [facility] [address] [id number] [place] [address]- 1614 Jun, 2014 [facility] [place] [facility] [address] [facility] [id number] [place] [address]- 1317 Jun, 2014 [facility] [place] [facility] [address] [id number] [place] [address]- 6229 Jun, 2014 [facility] [place] [facility] [address] [id number] [place] [address]- 9730 Jun, 2014 [facility] [place] [facility] [address] [id number] [place] [address]- 8514 Jun, 2014 [facility] [place] [facility] [address] [id number] [place] [address]- 2622 Jun, 2014 [facility] [place] [facility] [address] [facility] [id number] [place] [address]- 6753 Jun, 2014 [facility] [place] [facility] [address] [id number] [place] [address]- 7801 Jun, [facility] [place] [facility] [address] [id number] [place] [address]- 1276 Jun, [facility] [place] [facility] [address] [id number] [place] [address]- 0266 May, [facility] [place] [facility] [address] [id number] [place] [address]- 1780 May, [facility] [place] [facility] [address] [id number] [place] [address]- 4332 May, [facility] [place] [facility] [address] [id number] [place] [address]- 3561 May, [facility] [place] [facility] [address] [id number] [place] [address]- 9599 May, [facility] [place] [facility] [address] [id number] [place] [address]- 6483 May, [facility] [place] [facility] [address] [id number] [place] [address]- 6088 May, [facility] [place] [facility] [address] [id number] [place] [address]- 5803 May, [facility] [place] [facility] [address] [id number] [place] [address]- 4603 May, [facility] [place] [facility] [address] [id number] [place] [address]- 8743 May, [facility] [place] [facility] [address] [id number] [place] [address]- 3089 May, [facility] [place] [facility] [address] [id number] [place] [address]- 8249 May, [facility] [place] [facility] [address] [id number] [place] [address]- 7446 May, [facility] [place] [facility] [address] [id number] [place] [address]- 5799 May, [facility] [place] [facility] [address] [id number] [place] [address]- 0107 May, [facility] [place] [facility] [address] [id number] [place] [address]- 5628 May, [facility] [place] [facility] [address] [id number] [place] [address]- 5386 May, [facility] [place] [facility] [address] [id number] [place] [address]- 1323 May, [facility] [place] [facility] [address] [id number] [place] [address]- 2932 Apr, [facility] [place] [facility] [address] [id number] [place] [address]- 9930 Apr, [facility] [place] [facility] [address] [id number] [place] [address]- 2997 Apr, [facility] [place] [facility] [address] [id number] [place] [address]- 1217 Apr, [facility] [place] [facility] [address] [id number] [place] [address]- 1676 Apr, [facility] [place] [facility] [address] [id number] [place] [address]- 6037 Apr, [facility] [place] [facility] [address] [id number] [place] [address]- 6287 Apr, [facility] [place] [facility] [address] [id number], [place] [address]- 4670 Apr, [facility] [place] [facility] [address] [id number] [place] [address]- 7759 Apr, [facility] [place] [facility] [address] [id number] [place] [address]- 0878 Mar, [facility] [place] [facility] [address] [id number] [place] [address]- 1058 Mar, [facility] [place] [facility] [address] [id number] [place] [address]- 7827 Mar, [facility] [place] [facility] [address] [id number] [place] [address]- 3715 Mar, [facility] [place] [facility] [address] [id number] [place] 5947 Mar, [facility] [place] [facility] [address] [id number] [place] [address]- 9245 Feb, [facility] [place] [facility] [address] [id number] [place] [address]- 6000 Feb, [facility] [place] [facility] [address] [id number] [place] [address]- 3505 Feb, [facility] [place] [facility] [address] [id number] [place] [address]- 0066 Feb, [facility] [place] [facility] [address] [id number] [place] [address]- 4558 Feb, [facility] [place] [facility] [address] [id number] [place] [address]- 4014 Feb, [facility] [place] [facility] [address] [id number] [place] [address]- 0336 Feb, [facility] [place] [facility] [address] [id number] [place] [address]- 9591 Feb, [facility] [place] [facility] [address] [id number] [place] [address]- 4131 Feb, [facility] [place] [facility] [address] [id number], [place] [address]- 0091 Feb, [facility] [place] [facility] [address] [id number] [place] [address]- 1903 Feb, [facility] [place] [facility] [address] [id number] [place] [address]- 9665 Feb, [facility] [place] [facility] [address] [id number] 4811 Feb, [facility] [place] [facility] [address] [id number] [place] [address]- 3533 Feb, [facility] [place] [facility] [address] [id number] [place] [address]- 9505 Feb, [facility] [place] [facility] [address] [id number] [place] [address]- 8445 Feb, [facility] [place] [facility] [address] [id number] [place] [address]- 2563 Jan, [facility] [place] [facility] [address] [id number] [place] [address]- 5199 23 Jan, 2014 [facility] [place] [facility] [address] [id number] [place] [address]- 1951 20 Jan, 2014 [facility] [place] [facility] [address] [id number] [place] [address]- 7415 Jan, [facility] [place] [facility] [address] [id number] [place] [address]- 9545 Jan, [facility] [place] [facility] [address] [id number] [place] [address]- 9867 Jan, [facility] [place] [facility] [address] [id number] [place] [address]- 3894 Jan, [facility] [place] [facility] [address] [id number] [place] [address]- 6239 Jan, [facility] [place] [facility] [address] [id number] [place] [address]- 7931 Dec, [facility] [place] [facility] [address] [id number] [place] [address]- 0971 Dec, [facility] [place] [facility] [address] [id number] [place] [address]- 5209 Nov, [facility] [place] [facility] [address] [id number] [place] [address]- 0785 Nov, [facility] [place] [facility] [address] [id number] [place] [address]- 7276 Nov, [facility] [place] [facility] [address] [id number] [place] [address]- 7890 Nov, [facility] [place] [facility] [address] [id number] [place] [address]- 7575 Nov, [facility] [place] [facility] [address] [id number] [place] [address]- 9201 Nov, [facility] [place] [facility] [address] [id number] [place] [address]- 4771 Nov, [facility] [place] [facility] [address] [id number] [place] 2467 Nov, [facility] [place] [facility] [address] [id number] [place] [address]- 5612 Nov, [facility] [place] [facility] [address] [id number] [place] [address]- 3331 Oct, [facility] [place] [facility] [address] [id number] [place] [address]- 4862 Oct, [facility] [place] [facility] [address] [id number] [place] [address]- 8836 Oct, [facility] [place] [facility] [address] [id number] [place] [address]- 1163 Oct, [facility] [place] [facility] [address] [id number] [place] [address]- 5209 Oct, [facility] [place] [facility] [address] [id number] [place] [address]- 6779 Oct, [facility] [place] [facility] [address] [id number] [place] [address]- 4884 September, [facility] [place] [facility] [address] [id number] [place] [address]- 7614 September, [facility] [place] [facility] [address] [id number] [place] [address]- 7977 September, [facility] [place] [facility] [address] [id number] [place] [address]- 4055 September, [facility] [address] [id number] [place] 4690 September, [facility] [address] [id number] [place] [address]- 1936 September, [facility] [address] [id number] [place] [address]- 7922 September, [facility] [address] [id number] [place] [address]- 2259 September, [facility] [address] [id number] [place] [address]- 2263 September, [facility] [address] [id number] [place] [address]- 6408 September, [facility] [address] [id number] [place] [address]- 9764 September, [facility] [address] [id number] [place] [address]- 7058 September, [facility] [address] [id number] [place] [address]- 1662 September, [facility] [address] [id number] [place] [address]- 6967 September, [facility] [address] [id number] [place] [address]- 8115 September, [facility] [address] [id number] [place] [address]- 6284 September, [facility] [address] [id number] [place] [address]- 5178 September, [facility] [address] [id number] [place] [address]- 0746 September, [facility] [address] [id number] [place] [address]- 3869 September, [facility] [place] [facility] [address] [id number] [place] [address]- 0988 September, [facility] [place] [facility] [address] [id number] [place] [address]- 7739 Aug, [facility] [place] [facility] [address] [id number] [place] [address]- 5464 Aug, [facility] [place] [facility] [address] [id number] [place] [address]- 8216 Aug, [facility] [place] [facility] [address] [id number] [place] [address]- 0632 Aug, [facility] [place] [facility] [address] [id number] [place] [address]- 5201 Aug, [facility] [place] [facility] [address] [id number] [place] [address]- 9460 Aug, [facility] [place] [facility] [address] [id number] [place] [address]- 5174 Aug, [facility] [place] [facility] [address] [id number] [place] [address]- 4435 Aug, [facility] [place] [facility] [address] [id number] [place] [address]- 3003 Aug, [facility] [place] [facility] [address] [id number] [place] [address]- 7858 Aug, [facility] [place] [facility] [address] [id number] [place] [address]- 7890 Aug, [facility] [place] [facility] [address] [id number] [place] [address]- 4129 Aug, [facility] [place] [facility] [address] [id number] [place] [address]- 8502 Aug, [facility] [place] [facility] [address] [id number] [place] [address]- 4001 Aug, [facility] [place] [facility] [address] [id number] [place] [address]- 9057 03 Aug, 2013 [facility] [place] [facility] [address] [id number] [place] [address]- 3895 31 Jul, 2013 [facility] [place] [facility] [address] [id number] [place] [address]- 1126 31 Jul, 2013 [facility] [place] [facility] [address] [id number] [place] [address]- 0914 27 Jul, 2013 [facility] [place] [facility] [address] [id number] [place] [address]- 9913 27 Jul, 2013 [facility] [place] [facility] [address] [id number] [place] [address]- 8518 20 Jul, 2013 [facility] [place] [facility] [address] [id number] [place] [address]- 3884 20 Jul, 2013 [facility] [place] [facility] [address] [id number] [place] [address]- 0329 18 Jul, 2013 [facility] [place] [facility] [address] [id number] [place] [address]- 0395 18 Jul, 2013 [facility] [place] [facility] [address] [id number] [place] [address]- 5030 06 Jul, 2013 [facility] [place] [facility] [address] [id number] [place] [address]- 2559 06 Jul, 2013 [facility] [place] [facility] [address] [id number] [place] [address]- 7660 04 Jul, 2013 [facility] [place] [facility] [address] [id number] [place] [address]- 5731 04 Jul, 2013 [facility] [place] [facility] [address] [id number] [place] [address]- 6939 03 Jul, 2013 [facility] [place] [facility] [address] [id number] [place] [address]- 3086 03 Jul, 2013 [facility] [place] [facility] [address] [id number] [place] [address]- 9622 Jul, [facility] [place] [facility] [address] [id number] [place] [address]- 2219 Jun, [facility] [place] [facility] [address] [id number] [place] [address]- 2946 Jun, [facility] [place] [facility] [address] [id number] [place] [address]- 5956 Jun, [facility] [place] [facility] [address] [id number] [place] [address]- 7036 Jun, [facility] [place] [facility] [address] [id number] [place] [address]- 7319 Jun, [facility] [place] [facility] [address] [id number] [place] [address]- 5858 Jun, [facility] [place] [facility] [address] [id number] [place] [address]- 1328 May, [facility] [place] [facility] [address] [id number] [place] [address]- 9527 May, [facility] [place] [facility] [address] [id number] [place] [address]- 8682 May, [facility] [place] [facility] [address] [id number] [place] [address]- 5655 May, [facility] [place] [facility] [address] [id number] [place] [address]- 9004 May, [facility] [place] [facility] [address] [id number] [place] [address]- 5761 May, [facility] [place] [facility] [address] [id number] [place] [address] May, [facility] [place] [facility] [address] [id number] [place] [address] May, [facility] [place] [facility] [address] [id number] [place] [address] May, [facility] [place] [facility] [address] [id number] [place] [address] May, [facility] [address] [id number] [place] [address] May, [facility] [place] [facility] [address] [id number] [place] [address] May, [facility] [place] [facility] [address] [id number] [place] [address] May, [facility] [place] [facility] [address] [id number] [place] [address] May, [facility] [place] [facility] [address] [id number] [place] [address] May, [facility] [place] [facility] [address] [id number] [place] [address] Apr, [facility] [place] [facility] [address] [id number] [place] [address] Apr, [facility] [place] [facility] [address] [id number] [place] [address] Apr, [facility] [place] [facility] [address] [id number] [place] [address] Apr, [facility] [place] [facility] [address] [id number] [place] [address] Apr, [facility] [place] [facility] [address] [id number] [place] [address] Apr, [facility] [place] [facility] [address] [id number] [place] [address] Apr, [facility] [place] [facility] [address] [id number] [place] [address] Apr, [facility] [place] [facility] [address] [id number] [place] [address] Apr, [facility] [place] [facility] [address] [id number] [place] [address] Apr, [facility] [place] [facility] [address] [id number] [place] [address] Mar, [facility] [address] [id number] [place] [address] Mar, [facility] [address] [id number] [place] [address] Mar, [facility] [address] [id number] [place] [address] Mar, [facility] [address] [id number] [place] [address] Mar, [facility] [address] [id number] [place] [address] Mar, [facility] [address] [id number] [place] [address] Mar, [facility] [address] [id number] [place] [address] Mar, [facility] [address] [id number] [place] [address] Mar, [facility] [address] [id number] [place] [address] 120[address] Mar, [facility] [address] [id number] [place] [address] Mar, [facility] [address] [id number] [place] [address] Mar, [facility] [address] [id number], [place] [address] Mar, [facility] [place] [facility] [address] [id number] [place] [address] 9383 Mar, [facility] [address] [id number] [place] [address] Mar, [facility] [address] [id number] [place] [address] Mar, [facility] [place] [facility] [address] [id number] [place] [address] 14 Mar, 2013 [facility] [place] [facility] [address] [id number] [place] [address] 14 Mar, 2013 [facility] [place] [facility] [address] [id number] [place] [address] 39[address] Mar, [facility] [place] [facility] [address] [id number] [place] [address] Mar, [facility] [place] [facility] [address] [id number] [place] [address]- 2536 Mar, [facility] [place] [facility] [address] [id number] [place] [address] Mar, [facility] [place] [facility] [address] [id number] [place] [address]14 Mar, [facility] [place] [facility] [address] [id number] [place] [address] Feb, [facility] [place] [facility] [address] [id number] [place] [address]- 9680 Feb, [facility] [place] [facility] [address] [id number], [place] [address] Feb, [facility] [place] [facility] [address] [id number], [place] [address] 16 Feb, 2013 [facility] [place] [facility] [address] [id number], [place] [address] 15 Feb, 2013 [facility] [place] [facility] [address] [id number] [place] [address]- 4775 Feb, [facility] [place] [facility] [address] [id number], [place] [address]99 Feb, [facility] [place] [facility] [address] [id number] [address] Feb, [facility] [place] [facility] [address] [id number] [place] [address]- 8527 Feb, [facility] [address] [id number] [place] [address]- 8716 Feb, [facility] [place] [facility] [address] [id number] [place] [address]- [address] 30 Jan, 2013 [facility] [place] [facility] [address] [id number] [place] [address]- [address] 26 Jan, 2013 [facility] [place] [facility] [address] [id number] [place] [address]- [address]142 24 Jan, 2013 [facility] [place] [facility] [address] [id number] [place] [address]- [address] 23 Jan, 2013 [facility] [place] [facility] [address] [id number] [place] [address]- [address] Jan, [facility] [address] [id number] [place] [address]8 Dec, [facility] [place] [facility] [address] [id number] [place] [address] 4840 Dec, [facility] [place] [facility] [address] [id number] [place] [address]- 4546 Dec, [facility] [place] [facility] [address] [id number] [place] [address]- 6935 Dec, [facility] [place] [facility] [address] [id number] [place] [address]- 8767 Dec, [facility] [place] [facility] [address] [id number] [place] [address]- 8337 Dec, [facility] [place] [facility] [address] [id number] [place] [address]- 36[address] Dec, [facility] [place] [facility] [address] [id number] [place] [address] Nov, [facility] [place] [facility] [address] [id number] [place] [address]- 9418 Nov, [facility] [place] [facility] [address] [id number] [place] [address]- [address]42 15 Nov, 2012 [facility] [address] [id number] [place] [address]- [address]41 05 Nov, 2012 [facility] [place] [facility] [address] [id number] [place] [address]- [address]46 Nov, [facility] [place] [facility] [address] [address] [id number] [place] [address] Oct, [facility] [place] [facility] [address] [id number] [place] [address] Oct, [facility] [place] [facility] [address] [id number] [place] [address] Oct, [facility] [address] [id number] [place] [address] September, [facility] [address] [id number] [place] [address] September, [facility] [address] [id number] [place] [address] 74[address] September, [facility] [address] [id number] [place] [address] 4[address] September, [facility] [address] [id number] [place] [address] September, [facility] [place] [facility] [address] [id number] [place] [address] September, [facility] [place] [facility] [address] [id number] [place] [address] 254 September, [facility] [place] [facility] [address] [id number] [place] [address] 30 Aug, 2012 [facility] [place] [facility] [address] [id number] [place] [address] 4716 Aug, [facility] [place] [facility] [address] [id number] [place] [address] 0734 11 Aug, 2012 [facility] [address] [id number] [place] [address]- 3469 29 Jul, 2012 [facility] [address] [id number] [place] [address] 27 Jul, 2012 [facility] [address] [facility] [id number] [place] [address]- 7176 26 Jul, 2012 [facility] [place] [facility] [address] [facility] [id number] [place] [address]- 5097 20 Jul, 2012 [facility] [address] [facility] [id number] [place] [address]- 0761 18 Jul, 2012 [facility] [address] [facility] [id number] [place] [address]- 3351 18 Jul, 2012 [facility] [address] [facility] [id number] [place] [address] 1984 Jul, [facility] [place] [facility] [address] [facility] [id number], [place] [address] 28 Jun, 2012 [facility] [address] [facility] [id number] [place] [address]- 9399 27 Jun, 2012 [facility] [place] [facility] [address] [facility] [id number] [place] [address]- 7195 22 Jun, 2012 [facility] [address] [id number] [address] 2021 20 Jun, 2012 [facility] [place] [facility] [address] [facility] [id number], [place] [address]7 15 Jun, 2012 [facility] [place] [facility] [address] [facility] [id number] [place] [address]- 4076 15 Jun, 2012 [facility] [place] [facility] [address] [facility] [id number] [address] 13 Jun, 2012 [facility] [place] [facility] [id number], [place] [address] 12 Jun, 2012 [facility] [place] [facility] [address] [id number] [place] [address]- 9138 Jun, [facility] [address] [id number] [place] [address]- 6086 Jun, [facility] [place] [facility] [address] [id number] [place] [address]- 0116 May, [facility] [address] [id number] [place] [address]- 7486 May, [facility] [address] [id number] [place] [address]- 8414 May, [facility] [address] [id number] [place] [address]- 6026 May, [facility] [address] [id number] [place] [address]- 8677 May, [facility] [address] [id number] [place] [address]- 2265 May, [facility] [address] [id number] [place] [address]- 8231 Apr, [facility] [address] [id number] [place] [address]- 1226 Apr, [facility] [address] [id number] [place] [address]- 0699 Apr, [facility] [address] [id number] [place] [address]- 7997 Apr, [facility] [place] [facility] [address] [id number] [place] [address]- 4640 Apr, [facility] [place] [facility] [address] [id number] [place] [address]- 4591 Apr, [facility] [place] [facility] [address] [id number] [place] [address]- 4542 Apr, [facility] [place] [facility] [address] [id number], [place] [address]- 132[address] Mar, [facility] [place] [facility] [address] [id number] [place] [address]- 3019 29 Mar, 2012 [facility] [place] [facility] [address] [id number] [place] [address]- 6566 Mar, [facility] [place] [facility] [address] [id number] [place] [address]- 6049 Mar, [facility] [place] [facility] [address] [id number] [place] [address]- 8049 Mar, [facility] [place] [facility] [address] [id number] [place] [address]- 5363 Mar, [facility] [place] [facility] [address] [id number] [place] [address]- 4660 Mar, [facility] [place] [facility] [address] [id number] [place] [address]- 1118 Mar, [facility] [place] [facility] [address] [id number] [place] [address]- 9796 Mar, [facility] [place] [facility] [address] [id number] [place] [address]- 0593 Mar, [facility] [place] [facility] [address] [id number] [place] [address]- 4174 Mar, [facility] [place] [facility] [address] [id number], [place] [address]- 0982 Mar, [facility] [place] [facility] [address] [id number], [place] [address]- 6766 Mar, [facility] [place] [facility] [address] [id number] [place] [address]- 3226 Mar, [facility] [place] [facility] [address] [id number] [place] [address]- 9342 Mar, [facility] [place] [facility] [address] [facility] [id number], [place] [address]- 6682 Mar, [facility] [place] [facility] [address] [id number] [place] [address]- 1536 Mar, [facility] [address] [id number] [place] [address]- 8220 Feb, [facility] [place] [facility] [address] [id number] [place] [address] Feb, [facility] [address] [id number] [place] [address]- 1772 Feb, [facility] [place] [facility] [address] [id number] [place] [address]- 7806 Feb, [facility] [address] [id number] [place] [address]- 7914 Feb, [facility] [place] [facility] [address] [id number] [place] [address]- 7276 Feb, [facility] [place] [facility] [address] [id number] [place] [address]- 4648 Feb, [facility] [place] [facility] [address] [id number] [place] [address]- 1458 Feb, [facility] [place] [facility] [address] [id number] [place] [address]- 8390 Feb, [facility] [address] [facility] [id number] [place] [address]- 1795 Feb, [facility] [place] [facility] [address] [id number] [place] [address]- 3636 Feb, [facility] [place] [facility] [address] [id number] [place] [address]- 0195 27 Jan, 2012 [facility] [place] [facility] [address] [id number] [place] [address]- 2043 25 Sep2011 [facility] [place] [facility] [address] [id number] [place] [address]- 4097 13 Jan, 2012 [facility] [place] [facility] [address] [id number] [place] [address]- 3019 Jan, [facility] [place] [facility] [address] [id number] [place] [address]- 6734 Jan, [facility] [place] [facility] [address] [id number] [place] [address]- 3711 Dec, [facility] [place] [facility] [address] [id number] [place] [address]- 8090 Dec, [facility] [place] [facility] [address] [id number] [place] [address]- 2612 Dec, [facility] [place] [facility] [address] [id number] [place] [address]- 7078 Dec, [facility] [place] [facility] [address] [id number] [place] [address]- 5157 Dec, [facility] [place] [facility] [address] [id number] [place] [address]- 8049 Dec, [facility] [place] [facility] [address] [id number] [place] [address]- 5414 Dec, [facility] [place] [facility] [address] [id number] [place] [address]- 6657 Dec, [facility] [place] [facility] [address] [id number] [place] [address]- 3943 Nov, [facility] [place] [facility] [address] [id number] [place] [address]- 2738 Nov, [facility] [place] [facility] [address] [id number] [place] [address]- 8972 Nov, [facility] [place] [facility] [address] [id number] [place] [address]- 3288 Nov, [facility] [place] [facility] [address] [id number] [place] [address]- 8984 Nov, [facility] [place] [facility] [address] [id number] [place] [address]- 0606 Oct, [facility] [place] [facility] [address] [id number] [place] [address]- 6322 Oct, [facility] [address] [id number] [place] [address]- 4761 September, [facility] [address] [id number] [place] [address]- 8121 September, [facility] [address] [id number] [place] [address]- 6579 September, [facility] [address] [id number] [place] [address]- 8856 September, [facility] [address] [id number] [place] [address]- 9958 September, [facility] [address] [id number] [place] [address]- 6047 September, [facility] [address] [id number] [place] [address]- 5768 September, [facility] [address] [id number] [place] [address]- 8500 September, [facility] [address] [id number] [place] [address]- 1610 September, [facility] [address] [id number] [place] [address]- 3067 September, [facility] [address] [id number] [place] [address]- 9756 September, [facility] [place] [facility] [address] [id number] [place] [address]- 2592 September, [facility] [place] [facility] [address] [id number] [place] [address]- 7025 September, [facility] [place] [facility] [address] [id number] [place] [address]- 0049 September, [facility] [address] [id number] [place] [address]- 4253 Aug, [facility] [place] [facility] [address] [id number] [place] [address]- 7976 20 Aug, 2011 [facility] [place] [facility] [address] [id number] [place] [address]- 9266 13 Aug, 2011 [facility] [place] [facility] [address] [id number] [place] [address]- 2546 11 Aug, 2011 [facility] [place] [facility] [address] [id number] [place] [address]- 2926 23 Jul, 2011 [facility] [place] [facility] [address] [id number] [place] [address]- 3626 13 Jul, 2011 [facility] [place] [facility] [address] [id number] [place] [address]- 7056 13 Jul, 2011 [facility] [address] [facility] [id number] [place] [address]- 0208 28 Jun, [address] [facility] [address] [id number] [id number] 26 Jun, 2011 [facility] [address] [id number] [place] [address]- 2092 13 Jun, 2011 [facility] [address] [id number] [place] [address]- 1216 10 Jun, 2011 [facility] [address] [id number] [place] [address]- 5336 07 Jun, 2011 [facility] [place] [facility] [address] [id number] [place] [address]- 1136 07 Jun, 2011 [facility] [place] [facility] [address] [id number] [place] [address]- 5796 03 Jun, 2011 [facility] [place] [facility] [address] [id number] [place] [address]- 4526 02 Jun, 2011 [facility] [place] [facility] [address] [id number] [place] [address]- 7976 May, [facility] [place] [facility] [address] [id number] [place] [address]- 9689 30 May, 2011 [facility] [address] [id number] [place] [address]- 7407 May, [facility] [place] [facility] [address] [id number] [place] [address]- 9436 May, [facility] [address] [id number] [place] [address]- 2492 May, [facility] [place] [facility] [address] [id number] [place] [address]- 1662 May, [facility] [address] [id number] [place] [address]- 4177 May, [facility] [place] [facility] [address] [id number] [place] [address]- 7491 May, [facility] [address] [id number] [place] [address]- 4430 May, [facility] [place] [facility] [address] [id number] [place] [address]- 9820 May, [facility] [address] [id number] [place] [address]- 1000 May, [facility] [place] [facility] [address] [id number] [place] [address]- 0178 May, [facility] [address] [id number] [place] [address]- 8509 May, [facility] [place] [facility] [address] [id number], [place] [address]- 6278 May, [facility] [place] [facility] [address] [id number] [place] [address]- 6586 Apr, [facility] [place] [facility] [address] [id number] [place] [address]- 2436 Apr, [facility] [place] [facility] [address] [id number] [place] [address]- 4646 Apr, [facility] [place] [facility] [address] [id number] [place] [address]- 1214 17 Mar, 2011 [facility] [address] [id number] [place] [address]- 9253 Mar, [facility] [place] [facility] [address] [id number] [place] [address]- 0616 31 Feb, 2011 [facility] [address] [id number] [place] [address]- 2726 26 Feb, 2011 [facility] [place] [facility] [address] [id number] [place] [address] 2546 21 Feb, 2011 [facility] [address] [id number] [place] [address]- 0397 20 Feb, 2011 [facility] [address] [id number] [place] [address]- 3417 13 Feb, 2011 [facility] [address] [id number] [place] [address]- 9996 28 Apr, 2010 [facility] [address] [id number] [place] [address]- 5309 22 Apr, 2010 [facility] [place] [facility] [address] [id number] [place] [address] 2545 16 Apr, 2010 [facility] [address] [id number] [place] [address] 2541 15 Apr, 2010 [facility] [place] [facility] [address] [id number] [place] [address] 2546 15 Apr, 2010 [facility] [place] [facility] [address] [id number] [place] [address] 2544 Apr, [facility] [place] [facility] [address] [id number] [place] [address] 2545 24 Mar, 2010 [facility] [place] [facility] [address] [id number] [place] [address]- 2546 17 Mar, 2010 [facility] [place] [facility] [address] [id number] [place] [address] 2549 17 Mar, 2010 [facility] [address] [id number] [address]- 0245 28 Feb, 2010 [facility] [id number] [address] Feb, [facility] [id number], [place] [address]- 5330 Feb, [facility] [id number], [place] [address]- 0897 15 Feb, 2010 [facility] [id number], [place] [address]- 4399 Dec, [facility] [id number], [place] [address]- 9552 Dec, [facility] [id number] [place] [address]- 2898 Oct, [facility] [id number], [place] [address]- 6750 Mar, [facility] [id number], [place] [address]- 5379 Mar, [facility] [address] [id number] [address] 4179 September, IMMUNIZATIONS No Known Immunizations SOCIAL HISTORY Never Assessed REASON FOR VISIT Referral Update PLAN OF CARE VITAL SIGNS MEDICATIONS Unknown [...]
--- OUTSIDE RECORDS SUMMARY | 2018-01-08 16:18 | XMS REPORT ---
Author Author VALERIE ZAVALA [facility] Address [address] [place] [address] Care Team Providers Care Glaze Maker Name Role Phone VALERIE ZAVALA Unavailable PROBLEMS Type Condition ICD9-CM Code [id number] Code Onset Dates Condition Status SNOMED Code Problem Generalized anxiety disorder F41.1 Active 51765467 Problem Hypokalemia E87.6 Active 102576545 Problem Right low back pain, with sciatica presence unspecified M54.5 Active 878995639 Problem Post-traumatic stress disorder, chronic F43.12 Active 97133738 Problem Pain in right knee M25.561 Active 09206665 Problem Gastroesophageal reflux disease without esophagitis K21.9 Active 391599242 Problem UTI symptoms R39.9 Active 07626712 Problem Essential hypertension I10 Active 20678555 Problem Anxiety F41.9 Active 07999573 Problem Neuropathy G62.9 Active 308166617 Problem Other chronic pain G89.29 Active 97357210 Problem Generalized abdominal pain R10.84 Active 419490615 Problem Chronic pain G89.29 Active 66839330 Problem Back pain M54.9 Active 147315796 Problem Right foot pain M79.671 Active 23091003 Problem Panic attacks F41.0 Active 783771392 Problem Other emphysema J43.8 Active 50129050 Problem Kidney stones N20.0 Active 45223700 Problem Renal calculus, right N20.0 Active 64606888 Problem Weight decrease R63.4 Active 657463372 Problem Tobacco abuse Z72.0 Active 67997923 Problem Bone pain M89.8X9 Active 44302627 Problem Depression, unspecified depression type F32.9 Active 17660502 Problem Insomnia, unspecified type G47.00 Active 204632704 Problem Pulmonary emphysema, unspecified emphysema type J43.9 Active 06954878 Problem Right upper quadrant abdominal pain R10.11 Active 318723891 Problem Weight loss R63.4 Active 454716811 ALLERGIES No Information ENCOUNTERS Encounter Location Date Diagnosis [facility] [address] [address] Dec, [facility] [id number] [place] [address] 97745- 4174 Dec, [facility] [id number] [address]474 Dec, Medicare welcome exam Z00.00 [facility] [id number] [place] [address] 71737- 4048 17 Nov, 2017 [facility] [id number] [place] [address] 64964- 9780 Nov, Pelvic pain R10.2 ; Acute pyelonephritis N10 and Essential hypertension I10 [facility] [id number] [address] 3143 Oct, Medicare welcome exam Z00.00 [facility] [id number] [place] [address] 29971- 1862 Oct, Gross hematuria R31.0 ; Urinary tract infection without hematuria, site unspecified N39.0 and Weakness R53.1 [facility] [address] [address] 6881 Oct, [facility] [address] [address] 5520 Oct, [facility] [id number] [place] [address] 70084- 5625 Oct, Medicare welcome exam Z00.00 [facility] [id number] [place] [address] 94929- 1749 September, Back pain M54.9 and Right anterior knee pain M25.561 [facility] [address] [address] 1474 September, [facility] [id number] [place] [address] 50556- 6224 September, [facility] [address] [address] 0218 September, Essential hypertension I10 [facility] [id number] [place] [address] 10701- 7762 September, [facility] [id number] [place] [address] 56158- 9664 September, RLQ abdominal pain R10.31 ; Low back pain M54.5 and Other chronic pain G89.29 [facility] [id number] [place] [address] 23029- 6111 Aug, Medicare welcome exam Z00.00 [facility] [id number] [place] [address] 88384- 2602 Aug, [facility] [id number] [place] [address] 60265- 5855 Aug, Acute pyelonephritis N10 and Medicare welcome exam Z00.00 [facility] [id number] [place] [address] 30721 -3332 Aug, Dysuria R30.0 and Acute pyelonephritis N10 [facility] [id number] [place] [address] 44431- 0135 Aug, [facility] [id number] [place] [address] 95865- 2824 Aug, [facility] [id number] [place] [address] 89807- 3799 Aug, [facility] [id number] [place] [address] 75355- 3881 Aug, [facility] [id number] [place] [address] 41220- 1931 Jul, [facility] [id number] [place] [address] 38498- 5900 Jul, Renal calculus, right N20.0 and Medicare welcome exam Z00.00 [facility] [id number] [place] [address] 79509 -5149 Jul, Dysuria R30.0 and Renal calculus, right N20.0 [facility] [id number] [place] [address] 44238- 4601 Jul, Medicare welcome exam Z00.00 [facility] [address] 80763- 7939 Jun, Gastroesophageal reflux disease without esophagitis K21.9 and Generalized abdominal pain R10.84 [facility] [address] 928663- 5359 Jun, Medicare welcome exam Z00.00 [place] [facility] [address] 23141- 5034 Jun, [facility] [address] 65900- 7420 Jun, Medicare welcome exam Z00.00 and Encounter for screening mammogram for malignant neoplasm of breast Z12.31 [facility] [address] 25321- 5904 Jun, Chronic pain G89.29 [facility] [id number] [place] [address] 18546- 0389 May, [facility] [address] 20273- 2759 May, Pelvic pain R10.2 [facility] [id number] [place] [address] 89652- 7690 May, Pelvic pain R10.2 [facility] [id number] [place] [address] 24461 -1578 May, Renal calculus, right N20.0 [facility] [address] 72676- 9999 May, Hematuria, unspecified type R31.9 and Nephrolithiasis N20.0 [facility] [id number] [place] [address] 04375 -3271 May, Dysuria R30.0 and Nephrolithiasis N20.0 [facility] [id number] [place] [address] 13464- 5961 May, [facility] [id number] [place] [address] 75220 -2024 May, Abdominal pain R10.9 and Kidney stone N20.0 [facility] [id number] [place] [address] 97107- 8379 May, [facility] [id number] [place] [address] 88812- 9454 May, Chronic pain G89.29 and Panic attacks F41.0 [facility] [id number] [place] [address] 13261- 9688 May, Urinary tract infection without hematuria, site unspecified N39.0 [facility] [id number] [place] [address] 75513- 6034 Apr, Right lower quadrant abdominal pain R10.31 and Abnormal serum lipase level R74.8 [facility] [id number] [place] [address] 26867- 5149 Apr, Recurrent urinary tract infection N39.0 [facility] [id number] [place] [address] 57580- 0157 Apr, UTI symptoms R39.9 ; Recurrent urinary tract infection N39.0 and Pelvic pain R10.2 [facility] [id number] [place] [address] 63705- 5896 Apr, Chronic pain G89.29 and Panic attacks F41.0 [facility] [id number] [place] [address] 89987- 3059 Apr, Dysuria R30.0 [facility] [address] [address]- 7731 Apr, [facility] [id number] [place] [address] 09293- 2526 Apr, Dysuria R30.0 and Urinary tract infection without hematuria , site unspecified N39.0 [facility] [id number] [place] [address] 50031- 5907 Mar, UTI symptoms R39.9 [facility] [id number] [place] [address] 20524- 5573 Mar, [facility] [id number] [place] [address] 19117- 6147 Mar, Panic attacks F41.0 and Chronic pain G89.29 [facility] [id number] [place] [address] 74176- 6048 Mar, [facility] [id number] [place] [address] 07543- 8047 Mar, Dysuria R30.0 [facility] [id number] [place] [address] 47172- 5182 Mar, Dysuria R30.0 [facility] [id number] [place] [address] 83684- 8134 Feb, Chronic pain G89.29 ; Shortness of breath R06.02 ; Weight loss R63.4 ; Encounter for immunization Z23 ; Bone pain M89.8X9 ; Right anterior knee pain M25.561 and Cough R05 [facility] [address] [place] [address] 13433- 4988 Feb, Shortness of breath R06.02 [facility] [id number] [place] [address] 59200- 8832 Feb, [facility] [id number] [place] [address] 21348- 6464 Feb, Panic attacks F41.0 and Chronic pain G89.29 [facility] [id number] [place] [address] 85337- 2832 Feb, [facility] [address] 76791- 0975 Feb, Panic attacks F41.0 ; Shortness of breath R06.02 and Encounter for immunization Z23 [facility] [facility] [address] 31648- 7158 Jan, [place] [address] 16444- 5599 Jan, Anxiety F41.9 and Chronic pain G89.29 [facility] [address] 45535- 6450 Dec, Anxiety F41.9 and Chronic pain G89.29 [facility] [address] 25439- 0642 Nov, Chronic pain G89.29 [facility] [address] 21608- 5442 Nov, Anxiety F41.9 [facility] [address] 07384- 2596 Nov, Chronic pain G89.29 ; Essential hypertension I10 and Other emphysema J43.[address] 46708- 2029 Oct, Anxiety F41.9 [place] [address] 29065- 5045 Oct, [facility] [address] 16264- 8239 Oct, Chronic pain G89.29 [facility] [id number] [place] [address] 15783- 8541 September, Recurrent UTI N39.0 ; Neuropathy G62.9 and Anxiety F41.9 [facility] [address] [place] [address]- 4681 September, [facility] [id number] [place] [address] 12843- 7227 September, Chronic pain G89.29 [facility] [id number] [address]- 3928 September, [facility] [id number] [place] [address] 34766- 9167 Aug, Post-traumatic stress disorder, chronic F43.12 ; Chronic urinary tract infection N39.0 ; Gastroesophageal reflux disease without esophagitis K21.9 ; Chronic pain G89.29 ; Essential hypertension I10 and Tobacco abuse Z72.0 [facility] [address] [address]30 Aug, [facility] [id number] [place] [address] 32778- 3508 Aug, Chronic pain G89.29 [facility] [id number] [place] [address] 19310- 1959 Aug, Insomnia, unspecified type G47.00 [facility] [id number] [place] [address] 08101- 4373 Aug, [facility] [id number] [place] [address] 90552- 9636 Jul, Chronic pain G89.29 [facility] [id number] [place] [address] 82484- 5907 Jul, [facility] [address] [address]- 5754 Jul, [facility] [id number] [place] [address] 55890- 2525 Jul, [facility] [address] [address]- 5967 15 Jul, 2016 Recurrent UTI (urinary tract infection) N39.0 [facility] [id number] [place] [address] 48834- 5566 Jul, [facility] [id number] [place] [address] 77369- 6707 Jun, Chronic pain G89.29 [facility] [id number] [place] [address] 99147- 2908 Jun, [facility] [address] 01660- 1439 Jun, [facility] [id number] [place] [address] 78480- 2919 May, Chronic pain G89.29 [facility] [facility] [id number] [place] [address] 50335- 4341 May, Weight loss R63.4 and Shortness of breath R06.02 [facility] [facility] [id number] [place] [address] 30771- 4400 May, Chronic pain G89.29 ; Weight loss R63.4 and Tobacco abuse Z72.0 [facility] [id number] [place] [address] 34144- 6292 May, [facility] [id number] [place] [address] 00121- 1554 May, Hypoxia R09.02 [facility] [id number] [place] [address] 42634- 2757 May, [facility] [id number] [place] [address] 70603- 1984 May, Pulmonary emphysema, unspecified emphysema type J43.9 [facility] [id number] [place] [address] 90118 -4128 May, [facility] [id number] [place] [address] 45709- 0337 May, [facility] [id number] [place] [address] 43748- 2421 May, [facility] [id number] [place] [address] 50433- 3690 May, Chronic pain G89.29 ; Encounter for immunization Z23 ; Right anterior knee pain M25.561 and Cough R05 [facility] [id number] [place] [address] 12974- 0569 Apr, Chronic pain G89.29 [facility] [address] 20300- 6610 Apr, [facility] [address] 21558- 4103 Apr, Generalized anxiety disorder F41.1 and Depression, unspecified depression type F32.9 [facility] [id number] [place] [address] 18526- 2692 Apr, Chronic pain G89.29 ; Hypokalemia E87.6 and Insomnia, unspecified type G47.00 [facility] [id number] [place] [address] 62064- 0147 Apr, [facility] [address] 19395- 9995 Apr, Chronic pain G89.29 [facility] [id number] [place] [address] 20568- 4754 Apr, [facility] [id number] [place] [address] 41433- 3190 Mar, [facility] [id number] [place] [address] 60977- 6086 Mar, Insomnia, unspecified type G47.00 [facility] [address] 32106- 5909 Mar, Chronic pain G89.29 [facility] [id number] [place] [address] 65875- 5176 Mar, [facility] [address] [place] [address]- 9696 19 Feb, 2016 [facility] [address] [address]- 1028 Feb, [facility] [address] [address]- 1582 Feb, [facility] [id number] [place] [address] 78326- 3719 Feb, [facility] [id number] [place] [address] 46483- 9032 Feb, [facility] [id number] [place] [address] 04174- 1194 29 Jan, 2016 [facility] [id number] [place] [address] 50786- 4565 26 Jan, 2016 [facility] [id number] [place] [address] 77639- 1901 20 Jan, 2016 [facility] [id number] [place] [address] 13183- 2100 13 Jan, 2016 [facility] [id number] [place] [address] 64124- 0894 12 Jan, 2016 [facility] [address] [address]- 2459 07 Jan, 2016 Chronic pain G89.29 [facility] [id number] [place] [address] 26244- 1650 Jan, Chronic pain G89.29 and Fibromyalgia M79.7 [facility] [address] [place] [address] 80258- 5138 Dec, Depression, unspecified depression type F32.9 and Generalized anxiety disorder 300.02 [facility] [address] [address]- 8242 Dec, Dysthymia F34.1 ; Insomnia, unspecified type G47.00 and Chronic pain G89.29 [facility] [id number] [place] [address] 65943- 1777 Dec, Chronic pain G89.29 [facility] [id number] [place] [address], [place] [address]- 4038 Dec, Insomnia, unspecified type G47.00 [facility] [id number] [place] [address], [place] [address]- 7232 Dec, Fibromyalgia M79.7 and Chronic pain G89.29 [facility] [id number] [place] [address] 14760 2542 Dec, [facility] [id number] [place] [address] 24776- 9481 Dec, [facility] [id number] [place] [address] 72831- 0972 Dec, [facility] [id number] [place] [address] 93171- 4195 Dec, [facility] [id number] [place] [address] 22064- 2545 Dec, Chronic pain G89.29 [facility] [id number] [place] [address] 26652- 5200 Dec, [facility] [id number] [place] [address] 00229- 7839 Dec, [facility] [id number] [place] [address] 60804- 4457 Dec, [facility] [id number] [place] [address] 23528- 2547 Dec, Chronic pain G89.29 and Dysthymia F34.1 [facility] [id number] [place] [address] 27978- 5219 Nov, [facility] [id number] [place] [address] 68386- 5779 Nov, Hypokalemia E87.6 and Chronic pain G89.29 [facility] [address] [place] [address] 68173- 7291 Nov, Back pain M54.9 and Pain in right knee M25.561 [facility] [id number] [place] [address] 55373- 0366 Nov, [facility] [id number] [place] [address] 41885- 4576 Nov, Chronic pain G89.29 [facility] [id number] [place] [address] 45458 2544 Nov, Chronic pain G89.29 ; Weight loss R63.4 ; Bone pain M89.8X9 and Insomnia, unspecified type G47.00 [facility] [id number] [place] [address] 95804- 4254 Nov, Chronic pain G89.29 [facility] [id number] [place] [address] 89142- 4313 Nov, Chronic pain G89.29 [facility] [id number] [place] [address] 01201 2545 30 Oct, 2015 Chronic pain G89.29 [facility] [id number] [place] [address] 67561 2545 Oct, UTI symptoms R39.9 [facility] [id number] [place] [address] 80600 2541 Oct, Chronic pain G89.29 [facility] [id number] [place] [address] 11139 2543 20 Oct, 2015 Chronic pain G89.29 [facility] [id number] [place] [address] 26487 2546 13 Oct, 2015 Chronic pain G89.29 [facility] [id number] [place] [address] 37553- 2099 06 Oct, 2015 Right upper quadrant abdominal pain R10.11 [facility] [id number] [address]- 1141 Oct, Chronic pain G89.29 [facility] [address] [address]- 7970 Oct, [facility] [address] [address]- 1118 September, Chronic pain G89.29 [facility] [address] [address]- 9612 September, Dysuria R30.0 and Urinary tract infection without hematuria , site unspecified N39.0 [facility] [id number] [place] [address] 26971- 8372 September, [facility] [address] [address]- 6307 September, Dysuria R30.0 [facility] [id number] [place] [address] 25607- 0039 September, Chronic pain G89.29 [facility] [address] [address]- 3197 September, Chronic pain G89.29 and Essential hypertension I10 [facility] [address] [address]- 1208 September, [facility] [address] [address]- 1456 September, [facility] [address] [address]- 4[address] September, [facility] [address] [address] Aug, UTI symptoms R39.9 [facility] [address] [address] Aug, Dysuria R30.0 [facility] [address] [address] Aug, [facility] [address] [address] Aug, [facility] [id number] [place] [address] Aug, [facility] [id number] [place] [address] Aug, Chronic pain G89.29 [facility] [id number] [place] [address] Aug, Dysthymia F34.1 [facility] [id number] [place] [address] Aug, Conjunctivitis, unspecified conjunctivitis type, unspecified laterality H10.9 [facility] [id number] [place] [address] Jul, Chronic pain G89.29 ; Back pain M54.9 ; Tobacco abuse Z72.0 and Weight decrease R63.4 [facility] [id number] [place] [address]- [address] 30 Jul, 2015 [facility] [id number] [place] [address]- [address] 30 Jul, 2015 [facility] [id number] [place] [address]69- [address]676 24 Jul, 2015 Chronic pain G89.29 [facility] [id number] [place] [address]- [address] Jul, [facility] [address] [address] Jul, [facility] [id number] [place] [address]- [address] 18 Jul, 2015 [facility] [address] [address] 17 Jul, 2015 [facility] [id number] [place] [address]- [address] 17 Jul, 2015 Chronic pain G89.29 [facility] [address] [address] 16 Jul, 2015 Chronic pain G89.29 [facility] [address] [address] 15 Jul, 2015 [facility] [id number] [place] [address] 8[address]67- [address] Jul, [facility] [address] [address] Jul, [facility] [id number] [place] [address]- [address] Jul, [facility] [id number] [place] [address]- [address] Jun, [facility] [id number] [address] Jun, Depression, unspecified depression type F32.9 [facility] [facility] [id number] [address] Jun, Pain in right knee M25.561 [facility] [address] [address] Jun, Chronic pain G89.29 ; Back pain M54.9 ; Bone pain M89.8X9 and Weight loss R63.4 [facility] [address] [address] Jun, [facility] [address] [address] May, [facility] [address] [address] May, UTI symptoms R39.9 ; Pain in right knee M25.561 ; Right low back pain, with sciatica presence unspecified M54.5 ; Right foot pain M79.671 ; Hypokalemia E87.6 and Screening, lipid Z13.220 [facility] [id number] [place] [address] 69976- 0986 May, [facility] [id number] [place] [address] 33049 2546 May, [facility] [id number] [place] [address] 16260 2541 Mar, [facility] [id number] [place] [address] 84242 2546 Mar, [facility] [id number] [place] [address] 56586- 6768 Mar, Hypokalemia E87.6 [facility] [id number] [place] [address] 99693- 3479 Mar, Encounter for immunization Z23 ; Pain in right leg M79.604 ; Pain in right knee M25.561 and Hypokalemia E87.6 [facility] [id number] [place] [address] 25742- 8013 Jan, [facility] [id number] [place] [address] 08988 2541 Jan, [facility] [id number] [place] [address] 42962 2549 Jan, Abdominal pain, generalized 789.07 [facility] [id number] [place] [address] 30649 2546 Jan, Abdominal pain, generalized 789.07 [facility] [id number] [place] [address] 07082 2546 Dec, [facility] [id number] [place] [address] 85641 2549 Dec, [facility] [id number] [place] [address] 12069 2541 Dec, [facility] [id number] [address] 9673 Nov, Hallux valgus 735.0 and Hammertoe 735.4 [facility] [id number] [address]- 7376 Nov, [facility] [address] [address]- 9735 Nov, Hallux valgus 735.0 and Hammer toe 735.4 [facility] [address] [address]- 5447 Oct, [facility] [id number] [place] [address] 08700- 2151 Oct, [facility] [id number] [place] [address] 73813- 6407 Oct, Pre-op evaluation V72.84 [facility] [id number] [place] [address] 73137- 3799 Oct, [facility] [id number] [place] [address] 82323- 3616 Oct, [facility] [id number] [place] [address] 21480- 6906 September, [facility] [address] [address]- 6933 September, [facility] [id number] [address]- 5771 September, Hallux valgus (acquired) 735.0 and Other hammer toe ( acquired) 735.4 [facility] [address] [address] Aug, [facility] [address] [address]- 1556 Aug, [facility] [address] [address]- 7627 Jul, [facility] [place] [facility] [address] [id number] [place] [address]- 4540 Jul, [facility] [place] [facility] [address] [id number] [place] [address]- 8058 Jul, 2014 [facility] [place] [facility] [address] [id number] [place] [address]- 0804 Jul, 2014 [facility] [place] [facility] [address] [id number] [place] [address]- 9670 Jul, 2014 [facility] [place] [facility] [address] [id number] [place] [address]- 6515 Jul, [facility] [place] [facility] [address] [id number] [place] [address]- 2620 Jul, [facility] [place] [facility] [address] [facility] [id number] [place] [address]- 2965 Jul, [facility] [place] [facility] [address] [id number] [place] [address]- 2400 Jun, 2014 [facility] [place] [facility] [address] [id number] [place] [address]- 3189 Jun, 2014 [facility] [place] [facility] [address] [facility] [id number] [place] [address]- 2859 Jun, 2014 [facility] [place] [facility] [address] [id number] [place] [address]- 0062 Jun, 2014 [facility] [place] [facility] [address] [id number] [place] [address]- 5369 Jun, 2014 [facility] [place] [facility] [address] [id number] [place] [address]- 9707 Jun, 2014 [facility] [place] [facility] [address] [id number] [place] [address]- 7512 Jun, 2014 [facility] [place] [facility] [address] [facility] [id number] [place] [address]- 6627 Jun, 2014 [facility] [place] [facility] [address] [id number] [place] [address]- 9600 Jun, [facility] [place] [facility] [address] [id number] [place] [address]- 0219 Jun, [facility] [place] [facility] [address] [id number] [place] [address]- 6706 May, [facility] [place] [facility] [address] [id number] [place] [address]- 9388 May, [facility] [place] [facility] [address] [id number] [place] [address]- 2119 May, [facility] [place] [facility] [address] [id number] [place] [address]- 7307 May, [facility] [place] [facility] [address] [id number] [place] [address]- 4497 May, [facility] [place] [facility] [address] [id number] [place] [address]- 4836 May, [facility] [place] [facility] [address] [id number] [place] [address]- 4216 May, [facility] [place] [facility] [address] [id number] [place] [address]- 8326 May, [facility] [place] [facility] [address] [id number] [place] [address]- 1417 May, [facility] [place] [facility] [address] [id number] [place] [address]- 8107 May, [facility] [place] [facility] [address] [id number] [place] [address]- 0140 May, [facility] [place] [facility] [address] [id number] [place] [address]- 6412 May, [facility] [place] [facility] [address] [id number] [place] [address]- 6116 May, [facility] [place] [facility] [address] [id number] [place] [address]- 0694 May, [facility] [place] [facility] [address] [id number] [place] [address]- 3235 May, [facility] [place] [facility] [address] [id number] [place] [address]- 8446 May, [facility] [place] [facility] [address] [id number] [place] [address]- 3936 May, [facility] [place] [facility] [address] [id number] [place] [address]- 1177 May, [facility] [place] [facility] [address] [id number] [place] [address]- 7272 Apr, [facility] [place] [facility] [address] [id number] [place] [address]- 7518 Apr, [facility] [place] [facility] [address] [id number] [place] [address]- 3297 Apr, [facility] [place] [facility] [address] [id number] [place] [address]- 8772 Apr, [facility] [place] [facility] [address] [id number] [place] [address]- 8398 Apr, [facility] [place] [facility] [address] [id number] [place] [address]- 4379 Apr, [facility] [place] [facility] [address] [id number] [place] [address]- 9834 Apr, [facility] [place] [facility] [address] [id number] [address]- 1955 Apr, [facility] [place] [facility] [address] [id number] [place] [address]- 1928 Apr, [facility] [place] [facility] [address] [id number] [place] [address]- 8246 Mar, [facility] [place] [facility] [address] [id number] [place] [address]- 6930 Mar, [facility] [place] [facility] [address] [id number] [place] [address]- 1175 Mar, [facility] [place] [facility] [address] [id number] [place] [address]- 3040 Mar, [facility] [place] [facility] [address] [id number] [place] [address] Mar, [facility] [place] [facility] [address] [id number] [place] [address]- 8341 Feb, [facility] [place] [facility] [address] [id number] [place] [address]- 8961 Feb, [facility] [place] [facility] [address] [id number] [place] [address]- 2906 Feb, [facility] [place] [facility] [address] [id number] [place] [address]- 7940 Feb, [facility] [place] [facility] [address] [id number] [place] [address]- 9388 Feb, [facility] [place] [facility] [address] [id number] [place] [address]- 7784 Feb, [facility] [place] [facility] [address] [id number] [place] [address]- 8434 Feb, [facility] [place] [facility] [address] [id number] [place] [address]- 5902 Feb, [facility] [place] [facility] [address] [id number] [place] [address]- 5449 Feb, [facility] [place] [facility] [address] [id number] [address]- 2155 Feb, [facility] [place] [facility] [address] [id number] [place] [address]- 5829 Feb, [facility] [place] [facility] [address] [id number] [place] [address]- 3774 Feb, [facility] [place] [facility] [address] [id number] 3657 Feb, [facility] [place] [facility] [address] [id number] [place] [address]- 9806 Feb, [facility] [place] [facility] [address] [id number] [place] [address]- 2917 Feb, [facility] [place] [facility] [address] [id number] [place] [address]- 9190 Feb, [facility] [place] [facility] [address] [id number] [place] [address]- 4168 Jan, [facility] [place] [facility] [address] [id number] [place] [address]- 8953 23 Jan, 2014 [facility] [place] [facility] [address] [id number] [place] [address]- 9839 20 Jan, 2014 [facility] [place] [facility] [address] [id number] [place] [address]- 8016 Jan, [facility] [place] [facility] [address] [id number] [place] [address]- 5568 Jan, [facility] [place] [facility] [address] [id number] [place] [address]- 4479 Jan, [facility] [place] [facility] [address] [id number] [place] [address]- 0311 Jan, [facility] [place] [facility] [address] [id number] [place] [address]- 4160 Jan, [facility] [place] [facility] [address] [id number] [place] [address]- 5598 Dec, [facility] [place] [facility] [address] [id number] [place] [address]- 3983 Dec, [facility] [place] [facility] [address] [id number] [place] [address]- 0989 Nov, [facility] [place] [facility] [address] [id number] [place] [address]- 9371 Nov, [facility] [place] [facility] [address] [id number] [place] [address]- 4766 Nov, [facility] [place] [facility] [address] [id number] [place] [address]- 6902 Nov, [facility] [place] [facility] [address] [id number] [place] [address]- 1405 Nov, [facility] [place] [facility] [address] [id number] [place] [address]- 6688 Nov, [facility] [place] [facility] [address] [id number] [place] [address]- 7600 Nov, [facility] [place] [facility] [address] [id number] [place] 3690 Nov, [facility] [place] [facility] [address] [id number] [place] [address]- 1738 Nov, [facility] [place] [facility] [address] [id number] [place] [address]- 5392 Oct, [facility] [place] [facility] [address] [id number] [place] [address]- 7817 Oct, [facility] [place] [facility] [address] [id number] [place] [address]- 0521 Oct, [facility] [place] [facility] [address] [id number] [place] [address]- 6908 Oct, [facility] [place] [facility] [address] [id number] [place] [address]- 9240 Oct, [facility] [place] [facility] [address] [id number] [place] [address]- 5302 Oct, [facility] [place] [facility] [address] [id number] [place] [address]- 9071 September, [facility] [place] [facility] [address] [id number] [place] [address]- 4601 September, [facility] [place] [facility] [address] [id number] [place] [address]- 8312 September, [facility] [place] [facility] [address] [id number] [place] [address]- 9392 September, [facility] [address] [id number] [place] 4895 September, [facility] [address] [id number] [place] [address]- 4998 September, [facility] [address] [id number] [place] [address]- 9501 September, [facility] [address] [id number] [place] [address]- 4470 September, [facility] [address] [id number] [place] [address]- 3907 September, [facility] [address] [id number] [place] [address]- 8632 September, [facility] [address] [id number] [place] [address]- 8378 September, [facility] [address] [id number] [place] [address]- 1881 September, [facility] [address] [id number] [place] [address]- 5502 September, [facility] [address] [id number] [place] [address]- 1387 September, [facility] [address] [id number] [place] [address]- 5029 September, [facility] [address] [id number] [place] [address]- 0747 September, [facility] [address] [id number] [place] [address]- 9136 September, [facility] [address] [id number] [place] [address]- 8196 September, [facility] [address] [id number] [place] [address]- 4838 September, [facility] [place] [facility] [address] [id number] [place] [address]- 7113 September, [facility] [place] [facility] [address] [id number] [place] [address]- 6478 Aug, [facility] [place] [facility] [address] [id number] [place] [address]- 2618 Aug, [facility] [place] [facility] [address] [id number] [place] [address]- 7658 Aug, [facility] [place] [facility] [address] [id number] [place] [address]- 0143 Aug, [facility] [place] [facility] [address] [id number] [place] [address]- 9129 Aug, [facility] [place] [facility] [address] [id number] [place] [address]- 3480 Aug, [facility] [place] [facility] [address] [id number] [place] [address]- 4885 Aug, [facility] [place] [facility] [address] [id number] [place] [address]- 2673 Aug, [facility] [place] [facility] [address] [id number] [place] [address]- 9164 Aug, [facility] [place] [facility] [address] [id number] [place] [address]- 5198 Aug, [facility] [place] [facility] [address] [id number] [place] [address]- 9861 Aug, [facility] [place] [facility] [address] [id number] [place] [address]- 8519 Aug, [facility] [place] [facility] [address] [id number] [place] [address]- 4663 Aug, [facility] [place] [facility] [address] [id number] [place] [address]- 3131 Aug, [facility] [place] [facility] [address] [id number] [place] [address]- 6527 03 Aug, 2013 [facility] [place] [facility] [address] [id number] [place] [address]- 1907 31 Jul, 2013 [facility] [place] [facility] [address] [id number] [place] [address]- 3153 31 Jul, 2013 [facility] [place] [facility] [address] [id number] [place] [address]- 6309 27 Jul, 2013 [facility] [place] [facility] [address] [id number] [place] [address]- 9850 27 Jul, 2013 [facility] [place] [facility] [address] [id number] [place] [address]- 0306 20 Jul, 2013 [facility] [place] [facility] [address] [id number] [place] [address]- 1635 20 Jul, 2013 [facility] [place] [facility] [address] [id number] [place] [address]- 1631 18 Jul, 2013 [facility] [place] [facility] [address] [id number] [place] [address]- 7701 18 Jul, 2013 [facility] [place] [facility] [address] [id number] [place] [address]- 7747 06 Jul, 2013 [facility] [place] [facility] [address] [id number] [place] [address]- 5036 06 Jul, 2013 [facility] [place] [facility] [address] [id number] [place] [address]- 0567 04 Jul, 2013 [facility] [place] [facility] [address] [id number] [place] [address]- 9898 04 Jul, 2013 [facility] [place] [facility] [address] [id number] [place] [address]- 0992 03 Jul, 2013 [facility] [place] [facility] [address] [id number] [place] [address]- 9565 03 Jul, 2013 [facility] [place] [facility] [address] [id number] [place] [address]- 9780 Jul, [facility] [place] [facility] [address] [id number] [place] [address]- 1020 Jun, [facility] [place] [facility] [address] [id number] [place] [address]- 4818 Jun, [facility] [place] [facility] [address] [id number] [place] [address]- 9296 Jun, [facility] [place] [facility] [address] [id number] [place] [address]- 0486 Jun, [facility] [place] [facility] [address] [id number] [place] [address]- 5794 Jun, [facility] [place] [facility] [address] [id number] [place] [address]- 0061 Jun, [facility] [place] [facility] [address] [id number] [place] [address]- 9682 May, [facility] [place] [facility] [address] [id number] [place] [address]- 8704 May, [facility] [place] [facility] [address] [id number] [place] [address]- 2484 May, [facility] [place] [facility] [address] [id number] [place] [address]- 9140 May, [facility] [place] [facility] [address] [id number] [place] [address]- 3251 May, [facility] [place] [facility] [address] [id number] [place] [address]- 2045 May, [facility] [place] [facility] [address] [id number] [place] [address]- 7583 May, [facility] [place] [facility] [address] [id number] [place] [address]- 3958 May, [facility] [place] [facility] [address] [id number] [place] [address]- 3888 May, [facility] [place] [facility] [address] [id number] [place] [address]- 3658 May, [facility] [address] [id number] [place] [address]- 0611 May, [facility] [place] [facility] [address] [id number] [place] 0402 May, [facility] [place] [facility] [address] [id number] [place] [address] May, [facility] [place] [facility] [address] [id number] [place] [address] May, [facility] [place] [facility] [address] [id number] [place] [address] May, [facility] [place] [facility] [address] [id number] [place] [address] Apr, [facility] [place] [facility] [address] [id number] [place] [address] Apr, [facility] [place] [facility] [address] [id number] [place] [address] Apr, [facility] [place] [facility] [address] [id number] [place] [address] Apr, [facility] [place] [facility] [address] [id number] [place] [address] Apr, [facility] [place] [facility] [address] [id number] [place] [address] Apr, [facility] [place] [facility] [address] [id number] [place] [address] Apr, [facility] [place] [facility] [address] [id number] [place] [address] Apr, [facility] [place] [facility] [address] [id number] [place] [address] Apr, [facility] [place] [facility] [address] [id number] [place] [address] Apr, [facility] [place] [facility] [address] [id number] [place] [address] Mar, [facility] [address] [id number] [place] [address] Mar, [facility] [address] [id number] [place] [address] Mar, [facility] [address] [id number] [place] [address] Mar, [facility] [address] [id number] [place] [address] Mar, [facility] [address] [id number] [place] [address] Mar, [facility] [address] [id number] [place] [address] Mar, [facility] [address] [id number] [place] [address]- [address]67 Mar, [facility] [address] [id number] [place] [address] Mar, [facility] [address] [id number] [place] [address] Mar, [facility] [address] [id number] [place] [address] Mar, [facility] [address] [id number] [place] [address] Mar, [facility] [address] [id number] [place] [address] Mar, [facility] [place] [facility] [address] [id number] [place] [address] Mar, [facility] [address] [id number] [place] [address]- [address]843 Mar, [facility] [address] [id number] [place] [address]- [address] Mar, [facility] [place] [facility] [address] [id number] [place] [address]- [address] 14 Mar, 2013 [facility] [place] [facility] [address] [id number] [place] [address]- [address] 14 Mar, 2013 [facility] [place] [facility] [address] [id number] [place] [address]- [address] Mar, [facility] [place] [facility] [address] [id number] [place] [address]- [address] Mar, [facility] [place] [facility] [address] [id number] [place] [address]- [address]294 Mar, [facility] [place] [facility] [address] [id number] [place] [address] Mar, [facility] [place] [facility] [address] [id number] [place] [address]- [address] Mar, [facility] [place] [facility] [address] [id number] [place] [address] Feb, [facility] [place] [facility] [address] [id number] [place] [address] 28[address] Feb, [facility] [place] [facility] [address] [id number] [place] [address] Feb, [facility] [place] [facility] [address] [id number] [place] [address]- [address] 16 Feb, 2013 [facility] [place] [facility] [address] [id number] [place] [address]- [address] 15 Feb, 2013 [facility] [place] [facility] [address] [id number] [place] [address] Feb, [facility] [place] [facility] [address] [id number] [place] [address] Feb, [facility] [place] [facility] [address] [id number] [place] [address] Feb, [facility] [place] [facility] [address] [id number] [place] [address]- 164[address] Feb, [facility] [address] [id number] [place] [address] Feb, [facility] [place] [facility] [address] [id number] [place] [address]- [address] 30 Jan, 2013 [facility] [place] [facility] [address] [id number] [place] [address] 26 Jan, 2013 [facility] [place] [facility] [address] [id number] [place] [address]- [address]69 24 Jan, 2013 [facility] [place] [facility] [address] [id number] [place] [address]- [address] 23 Jan, 2013 [facility] [place] [facility] [address] [id number] [place] [address]- [address] Jan, [facility] [address] [id number] [place] [address]- [address]37 Dec, [facility] [place] [facility] [address] [id number] [place] [address]- 3068 Dec, [facility] [place] [facility] [address] [id number] [place] [address]- [address]192 Dec, [facility] [place] [facility] [address] [id number] [place] [address]- 49[address] Dec, [facility] [place] [facility] [address] [id number] [place] [address]- 75[address] Dec, [facility] [place] [facility] [address] [id number] [place] [address]- 267[address] Dec, [facility] [place] [facility] [address] [id number] [place] [address] Dec, [facility] [place] [facility] [address] [id number] [place] [address] Nov, [facility] [place] [facility] [address] [id number] [place] [address]- 264[address] Nov, [facility] [place] [facility] [address] [id number] [place] [address]- [address] 15 Nov, 2012 [facility] [address] [id number] [place] [address]- [address] 05 Nov, 2012 [facility] [place] [facility] [address] [id number] [place] [address]- 2546 Nov, [facility] [place] [facility] [address] [id number] [place] [address]- [address] Oct, [facility] [place] [facility] [address] [id number] [place] [address] Oct, [facility] [place] [facility] [address] [id number] [place] [address]- [address]226 Oct, [facility] [address] [id number] [place] [address] 96[address] September, [facility] [address] [id number] [place] [address]- [address] September, [facility] [facility] [address] [id number] [place] [address] September, [facility] [address] [id number] [place] [address] September, [facility] [address] [id number] [place] [address] September, [facility] [place] [facility] [address] [id number] [place] [address] September, [facility] [place] [facility] [address] [id number] [place] [address] September, [facility] [place] [facility] [address] [id number] [place] [address]46 30 Aug, 2012 [facility] [place] [facility] [address] [id number] [place] [address]66 Aug, [facility] [place] [facility] [address] [id number] [place] [address] 4727 11 Aug, 2012 [facility] [address] [id number] [place] [address]- 8428 29 Jul, 2012 [facility] [address] [id number] [place] [address] 27 Jul, 2012 [facility] [address] [facility] [id number] [place] [address] 7076 26 Jul, 2012 [facility] [place] [facility] [address] [facility] [id number] [place] [address]- 1031 20 Jul, 2012 [facility] [address] [facility] [id number] [place] [address]- 7935 18 Jul, 2012 [facility] [address] [facility] [id number] [place] [address]- 9145 18 Jul, 2012 [facility] [address] [facility] [id number] [place] [address] 0801 Jul, [facility] [place] [facility] [address] [facility] [id number] [place] [address] 28 Jun, 2012 [facility] [address] [facility] [id number] [place] [address]- 5994 27 Jun, 2012 [facility] [place] [facility] [address] [facility] [id number] [place] [address]- 5851 22 Jun, 2012 [facility] [address] [id number] [address] 5543 20 Jun, 2012 [facility] [place] [facility] [address] [facility] [id number] [place] [address]- 6167 15 Jun, 2012 [facility] [place] [facility] [address] [facility] [id number] [place] [address]- 3863 15 Jun, 2012 [facility] [place] [facility] [address] [facility] [id number] [place] [address] 13 Jun, 2012 [facility] [place] [facility] [id number] [address] 12 Jun, 2012 [facility] [place] [facility] [address] [id number] [place] [address]- 2820 Jun, [facility] [address] [id number] [place] [address]- 5296 Jun, [facility] [place] [facility] [address] [id number] [place] [address]- 0826 May, [facility] [address] [id number] [place] [address]- 4613 May, [facility] [address] [id number] [place] [address]- 5537 May, [facility] [address] [id number] [place] [address]- 0306 May, [facility] [address] [id number] [place] [address]- 9523 May, [facility] [address] [id number] [place] [address]- 1659 May, [facility] [address] [id number] [place] [address]- 2554 Apr, [facility] [address] [id number] [place] [address]- 4029 Apr, [facility] [address] [id number] [place] [address]- 3652 Apr, [facility] [address] [id number] [place] [address]- 9264 Apr, [facility] [place] [facility] [address] [id number] [place] [address]- 2856 Apr, [facility] [place] [facility] [address] [id number] [place] [address]- [address] Apr, [facility] [place] [facility] [address] [id number] [place] [address]- 7585 Apr, [facility] [place] [facility] [address] [id number] [place] [address] Mar, [facility] [place] [facility] [address] [id number] [place] [address]- 7691 29 Mar, 2012 [facility] [place] [facility] [address] [id number] [place] [address]- 7973 Mar, [facility] [place] [facility] [address] [id number] [place] [address]- 7928 Mar, [facility] [place] [facility] [address] [id number] [place] [address]- 1856 Mar, [facility] [place] [facility] [address] [id number] [place] [address]- 1424 Mar, [facility] [place] [facility] [address] [id number] [place] [address]- 9775 Mar, [facility] [place] [facility] [address] [id number] [place] [address]- 5810 Mar, [facility] [place] [facility] [address] [id number] [place] [address]- 7384 Mar, [facility] [place] [facility] [address] [id number] [place] [address]- 7488 Mar, [facility] [place] [facility] [address] [id number] [place] [address]- 1061 Mar, [facility] [place] [facility] [address] [id number] [place] [address]- 5520 Mar, [facility] [place] [facility] [address] [id number] [place] [address]- 5463 Mar, [facility] [place] [facility] [address] [id number] [place] [address] 0004 Mar, [facility] [place] [facility] [address] [id number] [place] [address]- 2565 Mar, [facility] [place] [facility] [address] [facility] [id number] [place] [address]- 5105 Mar, [facility] [place] [facility] [address] [id number] [place] [address]- 8544 Mar, [facility] [address] [id number] [place] [address]- 9620 Feb, [facility] [place] [facility] [address] [id number] [place] [address] Feb, [facility] [address] [id number] [place] [address]- 2608 Feb, [facility] [place] [facility] [address] [id number] [place] [address]- 0411 Feb, [facility] [address] [id number] [place] [address]- 9809 Feb, [facility] [place] [facility] [address] [id number] [place] [address]- 1564 Feb, [facility] [place] [facility] [address] [id number] [place] [address]- 0839 Feb, [facility] [place] [facility] [address] [id number] [place] [address]- 8040 Feb, [facility] [place] [facility] [address] [id number] [place] [address]- 4133 Feb, [facility] [address] [facility] [id number] [place] [address]- 2442 Feb, [facility] [place] [facility] [address] [id number] [place] [address]- 0016 Feb, [facility] [place] [facility] [address] [id number] [place] [address]- 8975 27 Jan, 2012 [facility] [place] [facility] [address] [id number] [place] [address]- 2181 25 Sep2011 [facility] [place] [facility] [address] [id number] [place] [address]- 5351 13 Jan, 2012 [facility] [place] [facility] [address] [id number] [place] [address]- 3113 Jan, [facility] [place] [facility] [address] [id number] [place] [address]- 2742 Jan, [facility] [place] [facility] [address] [id number] [place] [address]- 6119 Dec, [facility] [place] [facility] [address] [id number] [place] [address]- 8890 Dec, [facility] [place] [facility] [address] [id number] [place] [address]- 9252 Dec, [facility] [place] [facility] [address] [id number] [place] [address]- 9099 Dec, [facility] [place] [facility] [address] [id number] [place] [address]- 9652 Dec, [facility] [place] [facility] [address] [id number] [place] [address]- 5192 Dec, [facility] [place] [facility] [address] [id number] [place] [address]- 2164 Dec, [facility] [place] [facility] [address] [id number] [place] [address]- 3871 Dec, [facility] [place] [facility] [address] [id number] [place] [address]- 5526 Nov, [facility] [place] [facility] [address] [id number] [place] [address]- 4084 Nov, [facility] [place] [facility] [address] [id number] [place] [address]- 6006 Nov, [facility] [place] [facility] [address] [id number] [place] [address]- 2693 Nov, [facility] [place] [facility] [address] [id number] [place] [address]- 3186 Nov, [facility] [place] [facility] [address] [id number] [place] [address]- 5252 Oct, [facility] [place] [facility] [address] [id number] [place] [address]- 9959 Oct, [facility] [address] [id number] [place] [address]- 7327 September, [facility] [address] [id number] [place] [address]- 2826 September, [facility] [address] [id number] [place] [address]- 0706 September, [facility] [address] [id number] [place] [address]- 0103 September, [facility] [address] [id number] [place] [address]- 2624 September, [facility] [address] [id number] [place] [address]- 2196 September, [facility] [address] [id number] [place] [address]- 7536 September, [facility] [address] [id number] [place] [address]- 9742 September, [facility] [address] [id number] [place] [address]- 9705 September, [facility] [address] [id number] [place] [address]- 2238 September, [facility] [address] [id number] [place] [address]- [address], [facility] [place] [facility] [address] [id number] [place] [address]- 8504 September, [facility] [place] [facility] [address] [id number] [place] [address]- 8157 September, [facility] [place] [facility] [address] [id number] [place] [address]- 9167 September, [facility] [address] [id number] [place] [address]- 6522 Aug, [facility] [place] [facility] [address] [id number] [place] [address]- 6156 20 Aug, 2011 [facility] [place] [facility] [address] [id number] [place] [address]- 9976 13 Aug, 2011 [facility] [place] [facility] [address] [id number] [place] [address]- 2546 11 Aug, 2011 [facility] [place] [facility] [address] [id number] [place] [address]- 0276 23 Jul, 2011 [facility] [place] [facility] [address] [id number] [place] [address]- 8286 13 Jul, 2011 [facility] [place] [facility] [address] [id number] [place] [address]- 7966 13 Jul, 2011 [facility] [address] [facility] [id number] [place] [address]- 4429 28 Jun, [address] [facility] [address] [id number] [id number] 26 Jun, 2011 [facility] [address] [id number] [place] [address]- 7259 13 Jun, 2011 [facility] [address] [id number] [address]- 6066 10 Jun, 2011 [facility] [address] [id number] [address]- 7396 07 Jun, 2011 [facility] [place] [facility] [address] [id number] [place] [address]- 9336 07 Jun, 2011 [facility] [place] [facility] [address] [id number] [place] [address]- 2696 03 Jun, 2011 [facility] [place] [facility] [address] [id number] [place] [address]- 2316 02 Jun, 2011 [facility] [place] [facility] [address] [id number] [place] [address]- 3896 May, [facility] [place] [facility] [address] [id number] [place] [address]- 8034 30 May, 2011 [facility] [address] [id number] [place] [address]- 4403 May, [facility] [place] [facility] [address] [id number] [place] [address]- 4706 May, [facility] [address] [id number] [place] [address]- 7200 May, [facility] [place] [facility] [address] [id number] [place] [address]- 3224 May, [facility] [address] [id number] [place] [address]- 2846 May, [facility] [place] [facility] [address] [id number] [place] [address]- 6736 May, [facility] [address] [id number] [place] [address]- 9352 May, [facility] [place] [facility] [address] [id number] [place] [address]- 9714 May, [facility] [address] [id number] [place] [address]- 4056 May, [facility] [place] [facility] [address] [id number] [place] [address]- 8889 May, [facility] [address] [id number] [place] [address]- 2067 May, [facility] [place] [facility] [address] [id number] [address]- 1849 May, [facility] [place] [facility] [address] [id number] [place] [address]- 8526 Apr, [facility] [place] [facility] [address] [id number] [place] [address]- 9736 Apr, [facility] [place] [facility] [address] [id number] [place] [address]- 7536 Apr, [facility] [place] [facility] [address] [id number] [place] [address]- 0718 17 Mar, 2011 [facility] [address] [id number] [place] [address]- 9290 Mar, [facility] [place] [facility] [address] [id number] [place] [address]- 3456 31 Feb, 2011 [facility] [address] [id number] [place] [address]- 6596 26 Feb, 2011 [facility] [place] [facility] [address] [id number] [place] [address] 2546 21 Feb, 2011 [facility] [address] [id number] [place] [address]- 6985 20 Feb, 2011 [facility] [address] [id number] [place] [address]- 6249 13 Feb, 2011 [facility] [address] [id number] [place] [address]- 3506 28 Apr, 2010 [facility] [address] [id number] [place] [address]- 7451 22 Apr, 2010 [facility] [place] [facility] [address] [id number] [place] [address] 2541 [address], [address] [facility] [address] [id number] [place] [address] 2547 15 Apr, 2010 [facility] [place] [facility] [address] [id number] [place] [address] 2546 15 Apr, 2010 [facility] [place] [facility] [address] [id number] [place] [address] 2543 Apr, [facility] [place] [facility] [address] [id number] [place] [address] 2547 24 Mar, 2010 [facility] [place] [facility] [address] [id number] [place] [address]- 2546 17 Mar, 2010 [facility] [place] [facility] [address] [id number] [place] [address] 2540 17 Mar, 2010 [facility] [address] [id number] [address]- 9654 28 Feb, 2010 [facility] [id number] [address]- 0595 Feb, [facility] [id number] [address]- 0378 Feb, [facility] [id number] [address]- 5251 15 Feb, 2010 [facility] [id number] [address]- 5321 Dec, [facility] [id number] [address]- 2769 Dec, [facility] [id number] [address]- 5530 Oct, [facility] [id number] [address]- 6519 Mar, [facility] [id number] [address]- 8847 Mar, [facility] [address] [id number] [address]- 3175 September, IMMUNIZATIONS No Known Immunizations SOCIAL HISTORY Never Assessed REASON FOR VISIT Leg Pain PLAN OF CARE VITAL SIGNS MEDICATIONS [...]
--- OUTSIDE RECORDS SUMMARY | 2018-01-08 16:20 | XMS REPORT ---
Author Author VALERIE ZAVALA [facility] Address [address] [place] [address] Care Team Providers Care Sociology Instructor Name Role Phone VALERIE ZAVALA Unavailable PROBLEMS Type Condition ICD9-CM Code SLJ40-UP Code Onset Dates Condition Status SNOMED Code Problem Generalized anxiety disorder F41.1 Active 55639330 Problem Hypokalemia E87.6 Active 296337331 Problem Right low back pain, with sciatica presence unspecified M54.5 Active 012479074 Problem Post-traumatic stress disorder, chronic F43.12 Active 55963401 Problem Pain in right knee M25.561 Active 14696992 Problem Gastroesophageal reflux disease without esophagitis K21.9 Active 977910381 Problem UTI symptoms R39.9 Active 37048824 Problem Essential hypertension I10 Active 86049930 Problem Anxiety F41.9 Active 26405038 Problem Neuropathy G62.9 Active 589571540 Problem Other chronic pain G89.29 Active 01083244 Problem Generalized abdominal pain R10.84 Active 807309901 Problem Chronic pain G89.29 Active 93944960 Problem Back pain M54.9 Active 346715073 Problem Right foot pain M79.671 Active 66862461 Problem Panic attacks F41.0 Active 020696081 Problem Other emphysema J43.8 Active 39078280 Problem Kidney stones N20.0 Active 93581996 Problem Renal calculus, right N20.0 Active 45955920 Problem Weight decrease R63.4 Active 617082350 Problem Tobacco abuse Z72.0 Active 72791019 Problem Bone pain M89.8X9 Active 45047095 Problem Depression, unspecified depression type F32.9 Active 33321615 Problem Insomnia, unspecified type G47.00 Active 054354443 Problem Pulmonary emphysema, unspecified emphysema type J43.9 Active 34108625 Problem Right upper quadrant abdominal pain R10.11 Active 922860066 Problem Weight loss R63.4 Active 758877109 ALLERGIES Substance Reaction Event Type Date Status Sulfur rash Drug Allergy September, Active Remeron itching Drug Allergy September, Active Morphine Sulfate nausea Drug Allergy September, Active Demerol Unknown Drug Allergy September, Active Fentanyl 25 Mcg/hr Patch 72 Hr Unknown Non Drug Allergy September, Active ENCOUNTERS Encounter Location Date Diagnosis [place] [id number] [address] 14 Dec, 2017 [facility] [id number] [place] [address] 74760- 8371 13 Dec, 2017 [place] [id number] [place] [address] 90851- 4802 06 Dec, 2017 Medicare welcome exam Z00.00 [place] [id number] [place] [address] 69521- 8553 17 Nov, 2017 [place] [id number] [place] [address] 00607- 7298 16 Nov, 2017 Pelvic pain R10.2 ; Acute pyelonephritis N10 and Essential hypertension I10 [place] [id number] [place] [address] 67324- 9523 28 Oct, 2017 Medicare welcome exam Z00.00 [place] [id number] [place] [address] 68344- 1816 18 Oct, 2017 Gross hematuria R31.0 ; Urinary tract infection without hematuria, site unspecified N39.0 and Weakness R53.1 [place] [address] [place] [address] 50969- 0913 13 Oct, 2017 [place] [id number] [place] [address] 23530- 4332 Oct, [place] [id number] [place] [address] 16260- 5253 Oct, Medicare welcome exam Z00.00 [place] [id number] [place] [address] 91202- 4194 September, Back pain M54.9 and Right anterior knee pain M25.561 [facility] [address] [address] 9572 September, [facility] [id number] [place] [address] 51526- 5229 September, [facility] [id number] [place] [address] 54732- 4273 September, Essential hypertension I10 [facility] [id number] [place] [address] 01791- 9139 September, [facility] [id number] [place] [address] 76889- 8054 September, RLQ abdominal pain R10.31 ; Low back pain M54.5 and Other chronic pain G89.29 [facility] [id number] [address] 7843 Aug, Medicare welcome exam Z00.00 [facility] [address] [address]- 3566 Aug, [facility] [id number] [place] [address] 45993- 6487 Aug, Acute pyelonephritis N10 and Medicare welcome exam Z00.00 [facility] [address] [address] Aug, Dysuria R30.0 and Acute pyelonephritis N10 [facility] [address] [address]- 7326 Aug, [facility] [id number] [place] [address] 75654- 9062 Aug, [facility] [id number] [place] [address] 33139- 0481 Aug, [facility] [address] [address]- 3827 Aug, [facility] [address] [address]- 3036 Jul, [facility] [id number] [place] [address] 43945- 1707 Jul, Renal calculus, right N20.0 and Medicare welcome exam Z00.00 [facility] [id number] [place] [address] 90692 -6947 Jul, Dysuria R30.0 and Renal calculus, right N20.0 [facility] [id number] [place] [address] 58743- 8994 Jul, Medicare welcome exam Z00.00 [place] [id number] [place] [address] 13302- 1746 Jun, Gastroesophageal reflux disease without esophagitis K21.9 and Generalized abdominal pain R10.84 [place] [id number] [place] [address] 04534- 7728 Jun, Medicare welcome exam Z00.00 [place] [id number] [place] [address] 98148- 1267 Jun, [place] [id number] [place] [address] 69649- 8373 Jun, Medicare welcome exam Z00.00 and Encounter for screening mammogram for malignant neoplasm of breast Z12.31 [place] [address] [place] [address] 20942- 8188 Jun, Chronic pain G89.29 [place] [address] [address]- 7407 May, [place] [id number] [place] [address] 93242- 9893 May, Pelvic pain R10.2 [place] [id number] [place] [address] 77467- 5049 May, Pelvic pain R10.2 [facility] [address] [place] [address] 00977 -9234 May, Renal calculus, right N20.0 [place] [id number] [place] [address] 64957- 1947 May, Hematuria, unspecified type R31.9 and Nephrolithiasis N20.0 [facility] [place] [id number] [place] [address] 93332 -0417 May, Dysuria R30.0 and Nephrolithiasis N20.0 [place] [id number] [place] [address] 32504- 1009 May, [facility] [place] [id number] [place] [address] 96753 -6274 May, Abdominal pain R10.9 and Kidney stone N20.0 [place] [id number] [place] [address] 33468- 7908 May, [place] [id number] [place] [address] 56948- 2933 May, Chronic pain G89.29 and Panic attacks F41.0 [place] [id number] [place] [address] 56890- 6376 May, Urinary tract infection without hematuria, site unspecified N39.0 [place] [id number] [place] [address] 41868- 3028 Apr, Right lower quadrant abdominal pain R10.31 and Abnormal serum lipase level R74.8 [place] [id number] [place] [address] 86537- 5969 Apr, Recurrent urinary tract infection N39.0 [place] [id number] [place] [address] 93570- 5793 Apr, UTI symptoms R39.9 ; Recurrent urinary tract infection N39.0 and Pelvic pain R10.2 [place] [id number] [place] [address] 79393- 4466 Apr, Chronic pain G89.29 and Panic attacks F41.0 [facility] [id number] [place] [address] 98372- 9164 Apr, Dysuria R30.0 [facility] [id number] [place] [address] 17824- 6975 Apr, [facility] [id number] [place] [address] 81224- 7386 Apr, Dysuria R30.0 and Urinary tract infection without hematuria , site unspecified N39.0 [facility] [id number] [place] [address] 51794- 9802 Mar, UTI symptoms R39.9 [facility] [id number] [place] [address] 72332- 1904 Mar, [facility] [id number] [place] [address] 24902- 4626 Mar, Panic attacks F41.0 and Chronic pain G89.29 [facility] [id number] [place] [address] 61381- 4623 Mar, [facility] [id number] [place] [address] 08296- 1398 Mar, Dysuria R30.0 [facility] [id number] [place] [address] 51868- 1190 Mar, Dysuria R30.0 [facility] [id number] [place] [address] 02970- 9712 Feb, Chronic pain G89.29 ; Shortness of breath R06.02 ; Weight loss R63.4 ; Encounter for immunization Z23 ; Bone pain M89.8X9 ; Right anterior knee pain M25.561 and Cough R05 [facility] [address] [place] [address] 99867- 9352 Feb, Shortness of breath R06.02 [facility] [address] 04714- 0441 Feb, [facility] [address] 47343- 0763 Feb, Panic attacks F41.0 and Chronic pain G89.29 [facility] [address] 74020- 8874 Feb, [facility] [address] 06025- 0827 Feb, Panic attacks F41.0 ; Shortness of breath R06.02 and Encounter for immunization Z23 [place] [address] 13919- 3367 Jan, [facility] [address] 68925- 1794 Jan, Anxiety F41.9 and Chronic pain G89.29 [place] [address] 27670- 7079 Dec, Anxiety F41.9 and Chronic pain G89.29 [place] [address] 55363- 2156 Nov, Chronic pain G89.29 [facility] [address] 59048- 9907 Nov, Anxiety F41.9 [facility] [address] 81226- 5437 Nov, Chronic pain G89.29 ; Essential hypertension I10 and Other emphysema J43.8 [facility] [id number] [place] [address] 78575- 6916 Oct, Anxiety F41.9 [facility] [address] 44203- 6665 Oct, [facility] [address] 41138- 2413 Oct, Chronic pain G89.29 [facility] [id number] [place] [address] 94454- 2513 September, Recurrent UTI N39.0 ; Neuropathy G62.9 and Anxiety F41.9 [facility] [id number] [place] [address] 62405- 4280 September, [facility] [id number] [place] [address] 81428- 8765 September, Chronic pain G89.29 [facility] [id number] [place] [address] 47986- 4491 September, [facility] [address] 75582- 7290 Aug, Post-traumatic stress disorder, chronic F43.12 ; Chronic urinary tract infection N39.0 ; Gastroesophageal reflux disease without esophagitis K21.9 ; Chronic pain G89.29 ; Essential hypertension I10 and Tobacco abuse Z72.0 [facility] [id number] [place] [address] 57321 -3826 Aug, [facility] [id number] [place] [address] 60365- 6539 Aug, Chronic pain G89.29 [facility] [id number] [place] [address] 42474- 1056 Aug, Insomnia, unspecified type G47.00 [facility] [id number] [place] [address] 86154- 6156 Aug, [facility] [id number] [place] [address] 46158- 4189 Jul, Chronic pain G89.29 [facility] [address] 76734- 7468 Jul, [facility] [id number] [place] [address] 90029- 6391 Jul, [facility] [address] 83026- 8633 20 Jul, 2016 [facility] [address] [address]- 2193 15 Jul, 2016 Recurrent UTI (urinary tract infection) N39.0 [facility] [address] [place] [address] 23736- 4830 14 Jul, 2016 [facility] [address] [place] [address] 81625- 2224 Jun, Chronic pain G89.29 [facility] [address] [place] [address] 27804- 9781 Jun, [facility] [id number] [place] [address] 91099- 7492 Jun, [facility] [address] [place] [address] 31309- 3150 May, Chronic pain G89.29 [facility] [id number] [place] [address] 36863- 2225 May, Weight loss R63.4 and Shortness of breath R06.02 [facility] [id number] [place] [address] 62974- 2402 May, Chronic pain G89.29 ; Weight loss R63.4 and Tobacco abuse Z72.0 [place] [address] [place] [address] 57098- 8290 May, [facility] [address] [place] [address] 42360- 3666 May, Hypoxia R09.02 [facility] [address] [place] [address] 12184- 8553 May, [facility] [address] [place] [address] 91274- 6942 May, Pulmonary emphysema, unspecified emphysema type J43.9 [facility] [address] [place] [address] 87478 -1280 May, [facility] [id number] [place] [address] 64113- 0431 May, [facility] [id number] [place] [address] 39522- 2967 May, [facility] [id number] [place] [address] 84956- 6381 May, Chronic pain G89.29 ; Encounter for immunization Z23 ; Right anterior knee pain M25.561 and Cough R05 [facility] [id number] [place] [address] 53908- 8938 Apr, Chronic pain G89.29 [facility] [id number] [place] [address] 32903- 2427 Apr, [facility] [id number] [place] [address] 40068- 4178 Apr, Generalized anxiety disorder F41.1 and Depression, unspecified depression type F32.9 [facility] [id number] [place] [address] 27993- 8166 Apr, Chronic pain G89.29 ; Hypokalemia E87.6 and Insomnia, unspecified type G47.00 [facility] [id number] [place] [address] 82386- 3602 Apr, [facility] [id number] [place] [address] 46670- 7150 Apr, Chronic pain G89.29 [facility] [address] [place] [address] 06379- 8936 Apr, [facility] [id number] [place] [address] 52510- 0610 Mar, [facility] [id number] [place] [address] 34883- 1519 Mar, Insomnia, unspecified type G47.00 [facility] [id number] [place] [address] 88894- 5727 Mar, Chronic pain G89.29 [facility] [address] [facility] [id number] [address]- 1314 Mar, [facility] [id number] [place] [address] 69455- 0295 Feb, [facility] [address] [place] [address] 06314- 8435 Feb, [facility] [address] [facility] [id number] [place] [address] 71524- 9275 Feb, [facility] [address] [facility] [id number] [place] [address] 79615- 7243 Feb, [facility] [id number] [place] [address] 72462- 7093 Feb, [facility] [address] [place] [address] 69119- 7539 29 Jan, 2016 [facility] [address] [place] [address] 79032- 5006 26 Jan, 2015 [facility] [id number] [place] [address] 91324- 4845 20 Jan, 2015 [facility] [id number] [address]- 5934 13 Jan, 2015 [facility] [address] [place] [address] 97866- 9271 12 Jan, 2015 [facility] [id number] [address]- 8652 07 Jan, 2015 Chronic pain G89.29 [facility] [address] [place] [address] 81137- 1647 01 Jan, 2016 Chronic pain G89.29 and Fibromyalgia M79.7 [facility] [id number] [address]- 6902 Dec, Depression, unspecified depression type F32.9 and Generalized anxiety disorder 300.02 [facility] [address] [facility] [id number] [place] [address] 68819- 3892 Dec, Dysthymia F34.1 ; Insomnia, unspecified type G47.00 and Chronic pain G89.29 [facility] [id number] [place] [address] 54268 2543 Dec, Chronic pain G89.29 [facility] [id number] [place] [address] 82213 254 Dec, Insomnia, unspecified type G47.00 [facility] [id number] [place] [address] 65828- 1633 Dec, Fibromyalgia M79.7 and Chronic pain G89.29 [facility] [id number] [place] [address] 65945 2546 Dec, [facility] [id number] [place] [address] 89097- 5296 Dec, [facility] [id number] [place] [address] 69557 2547 Dec, [facility] [id number] [place] [address] 20475- 0617 Dec, [facility] [id number] [place] [address] 84984 2542 Dec, Chronic pain G89.29 [facility] [id number] [place] [address] 34915 2549 Dec, [facility] [id number] [place] [address] 44958 2540 Dec, [facility] [id number] [place] [address] 08415- 3234 Dec, [facility] [id number] [place] [address] 62069 2546 Dec, Chronic pain G89.29 and Dysthymia F34.1 [facility] [id number] [place] [address] 36243- 3010 Nov, [facility] [id number] [place] [address] 81956- 7126 Nov, Hypokalemia E87.6 and Chronic pain G89.29 [facility] [id number] [place] [address] 24812 2548 Nov, Back pain M54.9 and Pain in right knee M25.561 [facility] [id number] [place] [address] 10819- 7778 Nov, [facility] [id number] [place] [address] 93135- 4385 Nov, Chronic pain G89.29 [place] [id number] [place] [address] 95237- 8331 Nov, Chronic pain G89.29 ; Weight loss R63.4 ; Bone pain M89.8X9 and Insomnia, unspecified type G47.00 [place] [id number] [place] [address] [phone]- 9673 Nov, Chronic pain G89.29 [place] [id number] [place] [address] 36529 2546 Nov, Chronic pain G89.29 [place] [id number] [place] [address] 02675 2546 Oct, Chronic pain G89.29 [facility] [id number] [place] [address] [id number] 2542 Oct, UTI symptoms R39.9 [facility] [id number] [place] [address] 61675 2546 Oct, Chronic pain G89.29 [facility] [id number] [place] [address] [id number] 2546 20 Oct, 2015 Chronic pain G89.29 [facility] [id number] [place] [address] 58848- 3566 Oct, Chronic pain G89.29 [facility] [id number] [address] Oct, Right upper quadrant abdominal pain R10.11 [facility] [id number] [address] Oct, Chronic pain G89.29 [facility] [id number] [place] [address] [phone]- [phone] Oct, [facility] [address] [facility] [id number] [place] [address] [phone]- 2964 September, Chronic pain G89.29 [facility] [id number] [place] [address] 39261- 8042 September, Dysuria R30.0 and Urinary tract infection without hematuria , site unspecified N39.0 [facility] [id number] [address] September, [facility] [id number], [place] [address]72 September, Dysuria R30.0 [facility] [id number] [place] [address] 94183- 3781 September, Chronic pain G89.29 [facility] [id number] [address] 38[address] September, Chronic pain G89.29 and Essential hypertension I10 [facility] [address] [address] September, [facility] [id number] [place] [address] 48445- 5965 September, [facility] [id number] [address] 44[address] September, [facility] [address] [address] [address] Aug, UTI symptoms R39.9 [facility] [id number] [place] [address] 82357- 2360 Aug, Dysuria R30.0 [facility] [id number] [place] [address] 35482- 8729 Aug, [facility] [id number] [place] [address] 17650- 7166 Aug, [facility] [id number] [place] [address] 00445- 9700 Aug, [facility] [id number] [place] [address] 82037- 3662 Aug, Chronic pain G89.29 [facility] [id number] [place] [address] 24599- 9978 Aug, Dysthymia F34.1 [facility] [id number] [place] [address] 56765- 8334 Aug, Conjunctivitis, unspecified conjunctivitis type, unspecified laterality H10.9 [facility] [id number] [place] [address] 82206- 5464 Jul, Chronic pain G89.29 ; Back pain M54.9 ; Tobacco abuse Z72.0 and Weight decrease R63.4 [facility] [id number] [place] [address] 46871- 2211 Jul, [facility] [id number] [place] [address] 43676- 2515 30 Jul, 2015 [facility] [id number] [place] [address] 53279- 9910 24 Jul, 2015 Chronic pain G89.29 [facility] [id number] [place] [address] 62369- 4094 Jul, [facility] [id number] [place] [address] 21433- 1642 Jul, [facility] [id number] [place] [address] 45144- 5335 18 Jul, 2015 [facility] [address] [address] 6222 Jul, [facility] [address] [address] 6275 Jul, Chronic pain G89.29 [facility] [id number] [place] [address] 76332- 0136 16 Jul, 2015 Chronic pain G89.29 [facility] [id number] [place] [address] 50647- 7558 15 Jul, 2015 [facility] [id number] [place] [address] 23206- 7070 Jul, [facility] [id number] [place] [address] 47255- 6247 Jul, [facility] [id number] [place] [address] 68263- 4078 Jul, [facility] [address] [address]- 5074 Jun, [facility] [id number] [place] [address] 32393- 6405 Jun, Depression, unspecified depression type F32.9 [facility] [address] [address] 8729 Jun, Pain in right knee M25.561 [facility] [address] [address]- 5139 24 Jun, 2015 Chronic pain G89.29 ; Back pain M54.9 ; Bone pain M89.8X9 and Weight loss R63.4 [facility] [address] [address]- 6969 Jun, [facility] [address] [address]- 0786 May, [facility] [id number] [place] [address] 16868- 1749 May, UTI symptoms R39.9 ; Pain in right knee M25.561 ; Right low back pain, with sciatica presence unspecified M54.5 ; Right foot pain M79.671 ; Hypokalemia E87.6 and Screening, lipid Z13.220 [facility] [id number] [place] [address] 58074- 3222 May, [facility] [id number] [place] [address] 23041- 3307 May, [facility] [address] 98402- 9631 Mar, [facility] [id number] [place] [address] 06845- 8999 Mar, [facility] [id number] [place] [address] 35048- 8131 Mar, Hypokalemia E87.6 [facility] [id number] [place] [address] 90161- 3522 Mar, Encounter for immunization Z23 ; Pain in right leg M79.604 ; Pain in right knee M25.561 and Hypokalemia E87.6 [facility] [id number] [place] [address] 62369- 6892 Jan, [facility] [id number] [place] [address] 30645- 0534 Jan, [facility] [id number] [place] [address] 19484- 5574 Jan, Abdominal pain, generalized 789.07 [facility] [id number] [place] [address] 29643- 7286 Jan, Abdominal pain, generalized 789.07 [facility] [id number] [place] [address] 98750- 3341 Dec, [facility] [address] [address]- 2289 Dec, [facility] [id number] [place] [address] 14732- 3481 Dec, [facility] [address] [address]- 7443 Nov, Hallux valgus 735.0 and Hammertoe 735.4 [facility] [id number] [place] [address] 32032- 5086 Nov, [facility] [id number] [place] [address] 53874- 9150 Nov, Hallux valgus 735.0 and Hammer toe 735.4 [facility] [address] [address]- 8405 Oct, [facility] [id number] [place] [address] 01588- 5165 Oct, [facility] [id number] [place] [address] 74776- 9441 Oct, Pre-op evaluation V72.84 [facility] [id number] [place] [address] 61339- 9079 Oct, [facility] [address], [place] [address]- 1505 Oct, [facility] [address], [place] [address]- 3392 September, [facility] [address] 5236 September, [facility] [id number] [place] [address] [id number]- 9192 September, Hallux valgus (acquired) 735.0 and Other hammer toe ( acquired) 735.4 [facility] [address] [address]573 Aug, [facility] [place] [facility] [address] [id number] [place] [address]- 2127 13 Aug, 2014 [facility] [place] [facility] [address] [id number] [place] [address]- 2220 Jul, [facility] [place] [facility] [address] [id number] [place] [address]- 3341 Jul, [facility] [place] [facility] [address] [id number] [place] [address]- 7507 Jul, [facility] [place] [facility] [address] [id number] [place] [address]- 6000 Jul, [facility] [place] [facility] [address] [id number] [place] [address]- 4799 Jul, [facility] [place] [facility] [address] [id number] [place] [address]- 1698 Jul, [facility] [place] [facility] [address] [id number] [place] [address]- 0275 Jul, [facility] [place] [facility] [address] [id number] [place] [address]- 8272 Jul, [facility] [place] [facility] [address] [id number] [place] [address]- 7325 Jun, [facility] [place] [facility] [address] [id number] [place] [address]- 6688 Jun, [facility] [place] [facility] [address] [id number] [place] [address]- 9112 Jun, [facility] [place] [facility] [address] [id number] [place] [address]- 1651 Jun, [facility] [place] [facility] [address] [id number] [place] [address]- 6716 Jun, [facility] [place] [facility] [address] [id number] [place] [address]- 6421 Jun, [facility] [place] [facility] [address] [id number] [place] [address]- 2484 Jun, [facility] [place] [facility] [address] [id number] [place] [address]- 9805 Jun, [facility] [place] [facility] [address] [id number] [place] [address]- 9366 Jun, [facility] [place] [facility] [address] [id number] [place] [address]- 5096 Jun, [facility] [place] [facility] [address] [id number] [place] [address]- 1516 May, [facility] [place] [facility] [address] [id number] [place] [address]- 7500 May, [facility] [place] [facility] [address] [id number] [place] [address]- 7257 May, [facility] [place] [facility] [address] [id number] [place] [address]- 3899 May, [facility] [place] [facility] [address] [id number] [place] [address]- 6133 May, [facility] [place] [facility] [address] [id number] [place] [address]- 0749 May, [facility] [place] [facility] [address] [id number] [place] [address]- 0349 May, [facility] [place] [facility] [address] [id number] [place] [address]- 7774 May, [facility] [place] [facility] [address] [id number] [place] [address]- 2209 May, [facility] [place] [facility] [address] [id number] [place] [address]- 7175 May, [facility] [place] [facility] [address] [id number] [place] [address]- 3453 May, [facility] [place] [facility] [address] [id number] [place] [address]- 7520 May, [facility] [place] [facility] [address] [id number] [place] [address]- 2453 May, [facility] [place] [facility] [address] [id number] [place] [address]- 5586 May, [facility] [place] [facility] [address] [id number] [place] [address]- 9892 May, [facility] [place] [facility] [address] [id number] [place] [address]- 5953 May, [facility] [place] [facility] [address] [id number] [place] [address]- 2106 May, [facility] [place] [facility] [address] [id number] [place] [address]- 3674 May, [facility] [place] [facility] [address] [id number] [place] [address]- 0304 Apr, [facility] [place] [facility] [address] [id number] [place] [address]- 4948 Apr, [facility] [place] [facility] [address] [id number] [place] [address]- 5453 Apr, [facility] [place] [facility] [address] [id number] [place] [address]- 1787 Apr, [facility] [place] [facility] [address] [id number] [place] [address]- 4725 Apr, [facility] [place] [facility] [address] [id number] [address]- 9110 Apr, [facility] [place] [facility] [address] [id number] [place] [address]- 2636 Apr, [facility] [place] [facility] [address] [id number] [place] [address]- 6349 Apr, [facility] [place] [facility] [address] [id number] [place] [address]- 1515 Apr, [facility] [place] [facility] [address] [id number] [place] [address]- 9246 Mar, [facility] [place] [facility] [address] [id number] [place] [address]- 5724 Mar, [facility] [place] [facility] [address] [id number] [place] [address]- 0903 Mar, [facility] [place] [facility] [address] [id number] [place] [address]- 5624 Mar, [facility] [place] [facility] [address] [id number] [place] [address]- 1421 Mar, [facility] [place] [facility] [address] [id number] [place] [address]- 0391 Feb, [facility] [place] [facility] [address] [id number] [place] [address]- 1771 Feb, [facility] [place] [facility] [address] [id number] [place] [address]- 1191 Feb, [facility] [place] [facility] [address] [id number] [place] [address]- 5060 Feb, [facility] [place] [facility] [address] [id number] [place] [address]- 5793 Feb, [facility] [place] [facility] [address] [facility] [id number] [place] [address]- 7124 Feb, [facility] [place] [facility] [address] [id number] [place] [address]- 5075 Feb, [facility] [place] [facility] [address] [id number] [address]- 4526 Feb, [facility] [place] [facility] [address] [id number] [place] [address]- 1611 Feb, [facility] [place] [facility] [address] [id number] [place] [address]- 6154 Feb, [facility] [place] [facility] [address] [facility] [id number] 6011 Feb, [facility] [place] [facility] [address] [id number] [place] [address]- 7058 08 Feb, 2013 [facility] [place] [facility] [address] [id number] [place] [address]- 1353 Feb, [facility] [place] [facility] [address] [id number] [place] [address]- 5750 Feb, 2013 [facility] [place] [facility] [address] [id number] [place] [address]- 9333 Feb, [facility] [place] [facility] [address] [id number] [place] [address]- 2108 Feb, [facility] [place] [facility] [address] [id number] [place] [address]- 2865 Jan, 2013 [facility] [place] [facility] [address] [id number] [place] [address]- 6222 Jan, 2013 [facility] [place] [facility] [address] [id number] [place] [address]- 6447 20 Jan, 2013 [facility] [place] [facility] [address] [id number] [place] [address]- 0134 19 Jan, 2014 [facility] [place] [facility] [address] [id number] [place] [address]- 5515 Jan, 2013 [facility] [place] [facility] [address] [id number] [place] [address]- 3055 Jan, [facility] [place] [facility] [address] [id number] [place] [address]- 3200 Jan, 2013 [facility] [place] [facility] [address] [id number] [place] [address]- 4034 Jan, [facility] [place] [facility] [address] [id number] [place] [address]- 4699 Dec, [facility] [place] [facility] [address] [id number] [place] [address]- 1728 Dec, [facility] [place] [facility] [address] [id number] [place] [address]- 9788 Nov, [facility] [place] [facility] [address] [id number] [place] [address]- 1806 Nov, [facility] [place] [facility] [address] [id number] [place] [address]- 9855 Nov, [facility] [place] [facility] [address] [id number] [place] [address]- 9612 Nov, [facility] [place] [facility] [address] [id number] [place] [address]- 9213 Nov, [facility] [place] [facility] [address] [id number] [place] [address]- 4014 Nov, [facility] [place] [facility] [address] [id number] [place] [address]- 6045 Nov, [facility] [place] [facility] [address] [id number] [place] [address]- 2469 Nov, [facility] [place] [facility] [address] [id number] [place] [address]- 9101 Nov, [facility] [place] [facility] [address] [id number] [place] [address]- 6155 Oct, [facility] [place] [facility] [address] [id number] [place] [address]- 7455 Oct, [facility] [place] [facility] [address] [id number] [place] [address]- 1518 Oct, [facility] [place] [facility] [address] [id number] [place] [address]- 1446 Oct, [facility] [place] [facility] [address] [id number] [place] [address]- 4013 Oct, [facility] [place] [facility] [address] [id number] [place] [address]- 6983 Oct, [facility] [place] [facility] [address] [id number] [place] [address]- 4013 September, [facility] [place] [facility] [address] [id number] [place] [address]- 0302 September, [facility] [address] [id number] [place] [address]- 2758 September, [facility] [address] [id number] [place] 1371 September, [facility] [address] [id number] [place] [address]- 2010 September, [facility] [address] [id number] [place] [address]- 3324 September, [facility] [address] [id number] [place] [address]- 5841 September, [facility] [address] [id number] [place] [address]- 3208 September, [facility] [address] [id number] [place] [address]- 8957 September, [facility] [address] [id number] [place] [address]- 5753 September, [facility] [address] [id number] [place] [address]- 3018 September, [facility] [address] [id number] [place] [address]- 5181 September, [facility] [address] [id number] [place] [address]- 4601 September, [facility] [address] [id number] [place] [address]- 0399 September, [facility] [address] [id number] [place] [address]- 9031 September, [facility] [address] [id number] [place] [address]- 2234 September, [facility] [address] [id number] [place] [address]- 4353 September, [facility] [address] [id number] [place] [address]- 3113 September, [facility] [place] [facility] [address] [id number] [place] [address]- 2079 September, [facility] [place] [facility] [address] [id number] [place] [address]- 4295 September, [facility] [place] [facility] [address] [id number] [place] [address]- 2670 Aug, [facility] [place] [facility] [address] [id number] [place] [address]- 7694 Aug, [facility] [place] [facility] [address] [id number] [place] [address]- 4543 Aug, [facility] [place] [facility] [address] [id number] [place] [address]- 3620 Aug, [facility] [place] [facility] [address] [id number] [place] [address]- 1479 Aug, [facility] [place] [facility] [address] [id number] [place] [address]- 8663 Aug, [facility] [place] [facility] [address] [id number] [place] [address]- 6765 Aug, [facility] [place] [facility] [address] [id number] [place] [address]- 7620 16 Aug, 2013 [facility] [place] [facility] [address] [id number] [place] [address]- 6720 15 Aug, 2013 [facility] [place] [facility] [address] [id number] [place] [address] 15 Aug, 2013 [facility] [place] [facility] [address] [id number] [place] [address] 14 Aug, 2013 [facility] [place] [facility] [address] [id number] [place] [address] 05 Aug, 2013 [facility] [place] [facility] [address] [id number] [place] [address] 05 Aug, 2013 [facility] [place] [facility] [address] [id number] [place] [address] Aug, [facility] [place] [facility] [address] [id number] [place] [address] Aug, [facility] [place] [facility] [address] [id number] [place] [address] Jul, [facility] [place] [facility] [address] [id number] [place] [address] 31 Jul, 2013 [facility] [place] [facility] [address] [id number] [place] [address] Jul, [facility] [place] [facility] [address] [id number] [place] [address] Jul, [facility] [place] [facility] [address] [id number] [place] [address] Jul, [facility] [place] [facility] [address] [id number] [place] [address] Jul, [facility] [place] [facility] [address] [id number] [place] [address] Jul, [facility] [place] [facility] [address] [id number] [place] [address] 18 Jul, 2013 [facility] [place] [facility] [address] [id number] [place] [address] Jul, [facility] [place] [facility] [address] [id number] [place] [address] 06 Jul, 2013 [facility] [place] [facility] [address] [id number] [place] [address] 04 Jul, 2013 [facility] [place] [facility] [address] [id number] [place] [address] 04 Jul, 2013 [facility] [place] [facility] [address] [id number] [place] [address] Jul, [facility] [place] [facility] [address] [id number] [place] [address] Jul, [facility] [place] [facility] [address] [id number] [place] [address] Jul, [facility] [place] [facility] [address] [id number] [place] [address] Jun, [facility] [place] [facility] [address] [id number] [place] [address] Jun, [facility] [place] [facility] [address] [id number] [place] [address] Jun, [facility] [place] [facility] [address] [id number] [place] [address] Jun, [facility] [place] [facility] [address] [id number] [place] [address] Jun, [facility] [place] [facility] [address] [id number] [place] [address] Jun, [facility] [place] [facility] [address] [id number] [place] [address] May, [facility] [place] [facility] [address] [id number] [place] [address] May, [facility] [place] [facility] [address] [id number] [place] [address] May, [facility] [place] [facility] [address] [id number] [place] [address] May, [facility] [place] [facility] [address] [id number] [place] [address] 98[address] May, [facility] [place] [facility] [address] [id number] [place] [address]- [address] May, [facility] [place] [facility] [address] [id number] [place] [address]40 May, [facility] [place] [facility] [address] [id number] [place] [address]58 May, [facility] [place] [facility] [address] [id number] [place] [address] May, [facility] [place] [facility] [address] [id number] [place] [address] May, [facility] [place] [facility] [address] [id number] [place] [address] May, [facility] [place] [facility] [address] [id number] [place] [address] May, [facility] [place] [facility] [address] [id number] [place] [address] May, [facility] [place] [facility] [address] [id number] [place] [address] May, [facility] [place] [facility] [address] [id number] [place] [address] May, [facility] [place] [facility] [address] [id number] [place] [address] Apr, [facility] [place] [facility] [address] [id number] [place] [address]- [address] Apr, [facility] [place] [facility] [address] [id number] [place] [address]- [address] Apr, [facility] [place] [facility] [address] [id number] [place] [address] Apr, [facility] [place] [facility] [address] [id number] [place] [address]- [address] Apr, [facility] [place] [facility] [address] [id number] [place] [address]- [address] Apr, [facility] [place] [facility] [address] [id number] [place] [address] Apr, [facility] [place] [facility] [address] [id number] [place] [address] Apr, [facility] [place] [facility] [address] [id number] [place] [address] Apr, [facility] [address] [id number] [place] [address] 1714 Apr, [facility] [address] [id number] [place] [address] Mar, [facility] [address] [id number] [place] [address] 5265 Mar, [facility] [address] [id number] [place] [address] Mar, [facility] [address] [id number] [place] [address]47 Mar, [facility] [address] [id number] [place] [address] Mar, [facility] [address] [id number] [place] [address] Mar, [facility] [address] [id number] [place] [address] Mar, [facility] [address] [id number] [place] [address] 3545 Mar, [facility] [address] [id number] [place] [address] 2184 Mar, [facility] [address] [id number] [place] [address]- 3597 Mar, [facility] [address] [id number], [place] [address] Mar, [facility] [place] [facility] [address] [id number] [place] [address] 7057 Mar, [facility] [address] [id number] [place] [address]- 8423 Mar, [facility] [address] [id number] [place] [address]- 4443 Mar, [facility] [place] [facility] [address] [id number] [place] [address]- 4[address] 18 Mar, 2013 [facility] [place] [facility] [address] [id number] [place] [address]- 7449 Mar, [facility] [place] [facility] [address] [id number] [place] [address]- 6020 Mar, [facility] [place] [facility] [address] [id number] [place] [address]- 3494 Mar, [facility] [place] [facility] [address] [id number] [place] [address]- 8807 Mar, [facility] [place] [facility] [address] [id number] [place] [address]- 3729 Mar, [facility] [place] [facility] [address] [id number] [place] [address]- 2870 Mar, [facility] [place] [facility] [address] [id number][place] [address] 8491 Mar, [facility] [place] [facility] [address] [id number] [place] [address]- 8411 Mar, [facility] [place] [facility] [address] [id number] [address]- 0589 Feb, [facility] [place] [facility] [address] [id number], [place] [address] 4313 18 Feb, 2013 [facility] [place] [facility] [address] [id number][place] [address]- 5148 16 Feb, 2013 [facility] [place] [facility] [address] [id number], [place] [address] 8138 16 Feb, 2013 [facility] [place] [facility] [address] [id number] [address]- 7859 15 Feb, 2013 [facility] [place] [facility] [address] [id number], [place] [address]- 9150 09 Feb, 2013 [facility] [place] [facility] [address] [id number][place] [address]- 2449 09 Feb, 2013 [facility] [place] [facility] [address] [id number] [place] [address]- 4157 Feb, [facility] [place] [facility] [address] [id number] [place] [address]- 0332 Feb, [facility] [place] [facility] [address] [id number] [place] [address]- 1483 Feb, [facility] [place] [facility] [address] [id number] [place] [address]- 4188 30 Jan, 2013 [facility] [place] [facility] [address] [id number] [place] [address]- 2438 26 Jan, 2013 [facility] [place] [facility] [address] [id number] [place] [address]- 5393 24 Jan, 2013 [facility] [place] [facility] [address] [id number] [place] [address]- 2249 23 Jan, 2013 [facility] [place] [facility] [address] [id number] [place] [address]- 8800 17 Jan, 2013 [facility] [place] [facility] [address] [id number] [place] [address]- 6553 Dec, [facility] [place] [facility] [address] [id number] [place] [address]- 5540 Dec, [facility] [place] [facility] [address] [id number] [place] [address]- 2424 16 Dec, 2012 [facility] [place] [facility] [address] [id number] [place] [address]- 6047 15 Dec, 2012 [facility] [place] [facility] [address] [id number] [place] [address]- 8558 14 Dec, 2012 [facility] [place] [facility] [address] [id number] [place] [address]- 6152 Dec, [facility] [place] [facility] [address] [id number] [place] [address]- 3094 Dec, [facility] [place] [facility] [address] [id number] [place] [address]- 2546 17 Nov, 2012 [facility] [address] [id number] [place] [address]- 7245 16 Nov, 2012 [facility] [place] [facility] [address] [id number] [place] [address]- 2546 15 Nov, 2012 [facility] [place] [facility] [address] [id number] [place] [address]- 2546 05 Nov, 2012 [facility] [place] [facility] [address] [id number] [place] [address]- 2546 Nov, [facility] [place] [facility] [address] [id number] [place] [address]- 6832 Oct, [facility] [place] [facility] [address] [id number] [place] [address]- 9041 Oct, [facility] [place] [facility] [address] [id number] [place] [address]- 4676 Oct, [facility] [address] [id number] [place] [address]- 7408 September, [facility] [place] [facility] [address] [id number] [place] [address]- 6336 September, [facility] [place] [facility] [address] [id number] [place] [address]- 8316 September, [facility] [place] [facility] [address] [id number] [place] [address]- 2546 September, [facility] [place] [facility] [address] [id number] [place] [address]- 2547 September, [facility] [place] [facility] [address] [id number] [place] [address]- 1236 September, [facility] [place] [facility] [address] [id number] [place] [address]- 2546 September, [facility] [place] [facility] [address] [id number] [place] [address]- 6234 30 Aug, 2012 [facility] [place] [facility] [address] [id number] [place] [address]- 4719 23 Aug, 2012 [facility] [place] [facility] [address] [id number] [place] [address]- 1416 11 Aug, 2012 [facility] [place] [facility] [address] [id number] [place] [address]- 1877 29 Jul, 2012 [facility] [place] [facility] [address] [id number] [place] [address]- 9344 27 Jul, 2012 [facility] [place] [facility] [address] [id number] [place] [address]- 3306 26 Jul, 2012 [facility] [place] [facility] [address] [id number] [place] [address]- 1747 20 Jul, 2012 [facility] [place] [facility] [address] [id number] [place] [address]- 7451 18 Jul, 2012 [facility] [place] [facility] [address] [id number] [place] [address]- 4185 18 Jul, 2012 [facility] [place] [facility] [address] [id number] [place] [address]- 2572 13 Jul, 2012 [facility] [place] [facility] [address] [id number] [place] [address]- 1791 28 Jun, 2012 [facility] [place] [facility] [address] [id number] [place] [address]- 7224 27 Jun, 2012 [facility] [place] [facility] [address] [id number] [place] [address]- 0656 Jun, [facility] [place] [facility] [address] [id number] [place] [address]- 0517 20 Jun, 2012 [facility] [place] [facility] [address] [id number] [place] [address]- 6506 15 Jun, 2012 [facility] [place] [facility] [address] [id number] [place] [address]- 9183 15 Jun, 2012 [facility] [place] [facility] [address] [id number] [place] [address]- 4061 13 Jun, 2012 [facility] [address] [id number] [place] [address]- 3116 Jun, [facility] [place] [facility] [address] [id number] [place] [address]- 6876 Jun, [facility] [place] [facility] [address] [id number] [place] [address]- 4786 Jun, [facility] [place] [facility] [address] [id number] [place] [address]- 8776 May, [facility] [address] [id number] [place] [address]- 2926 May, [facility] [address] [id number] [place] [address]- 4165 May, [facility] [address] [id number] [place] [address]- 7676 May, [facility] [address] [id number] [place] [address]- 1709 May, [facility] [address] [id number] [place] [address]- 3668 May, [facility] [address] [id number] [place] [address]- 9903 Apr, [facility] [address] [id number] [place] [address]- 4056 Apr, [facility] [place] [facility] [address] [id number] [place] [address]- 8097 Apr, [facility] [place] [facility] [address] [id number] [place] [address]- 5057 Apr, [facility] [place] [facility] [address] [id number] [place] [address]- 4205 Apr, [facility] [place] [facility] [address] [id number] [place] [address]- 7090 Apr, [facility] [place] [facility] [address] [id number] [place] [address]- 9659 Apr, [facility] [place] [facility] [address] [id number] [place] [address]- 3401 Mar, [facility] [place] [facility] [address] [facility] [id number] [place] [address]- 6862 Mar, [facility] [place] [facility] [address] [id number] [place] [address]- 3379 Mar, [facility] [place] [facility] [address] [id number] [place] [address]- 9706 Mar, [facility] [place] [facility] [address] [id number] [place] [address]- 6611 Mar, [facility] [place] [facility] [address] [id number] [place] [address]- 2534 Mar, [facility] [place] [facility] [address] [id number], [place] [address]- 7138 Mar, [facility] [place] [facility] [address] [id number] [place] [address]- 5638 Mar, [facility] [place] [facility] [address] [id number] [place] [address]- 5846 16 Mar, 2012 [facility] [place] [facility] [address] [id number][place] [address]- 9843 16 Mar, 2012 [facility] [place] [facility] [address] [id number], [place] [address]- 0114 16 Mar, 2012 [facility] [place] [facility] [address] [id number] [place] [address]- 9241 Mar, [facility] [place] [facility] [address] [facility] [id number][place] [address]- 5377 Mar, [facility] [place] [facility] [address] [facility] [id number], [place] [address]- 0544 Mar, [facility] [place] [facility] [address] [id number] [place] [address]- 8149 Mar, [facility] [place] [facility] [address] [id number] [place] [address]- 4394 Mar, [facility] [place] [facility] [address] [id number] [place] [address]- 2172 Mar, [facility] [place] [facility] [address] [id number] [place] [address]- 8840 Feb, [facility] [place] [facility] [address] [id number] [place] [address]- 8298 Feb, [facility] [place] [facility] [address] [id number] [place] [address]- 5178 Feb, [facility] [place] [facility] [address] [id number] [place]85 Feb, [facility] [place] [facility] [address] [id number] [place] [address]- 2111 Feb, [facility] [place] [facility] [address] [id number] [place] [address]- 7989 Feb, [facility] [place] [facility] [address] [id number] [place] [address]- 6689 Feb, [facility] [place] [facility] [address] [id number] [place] [address]- 3003 Feb, [facility] [place] [facility] [address] [id number] [place] [address]- 9849 Feb, [facility] [place] [facility] [address] [id number] [place] [address]- 5914 Feb, [facility] [place] [facility] [address] [id number] [place] [address]- 2037 Feb, [facility] [place] [facility] [address] [id number] [place] [address]- 0558 Jan, [facility] [place] [facility] [address] [id number] [place] [address]- 9440 Jan, [facility] [place] [facility] [address] [id number] [place] [address]- 9753 13 Jan, 2012 [facility] [place] [facility] [address] [id number] [place] [address]- 9078 12 Jan, 2012 [facility] [place] [facility] [address] [id number] [place] [address]- 0803 07 Jan, 2012 [facility] [place] [facility] [address] [id number] [place] [address]- 5966 Dec, [facility] [place] [facility] [address] [id number] [place] [address]- 0980 24 Dec, 2011 [facility] [place] [facility] [address] [id number] [place] [address]- 5286 Dec, [facility] [place] [facility] [address] [id number] [place] [address]- 1979 Dec, [facility] [place] [facility] [address] [id number] [place] [address]- 2736 16 Dec, 2011 [facility] [place] [facility] [address] [id number] [place] [address]- 3988 Dec, [facility] [place] [facility] [address] [id number] [place] [address]- 1430 Dec, [facility] [place] [facility] [address] [id number] [place] [address]- 1447 Dec, [facility] [place] [facility] [address] [id number] [place] [address]- 2929 Nov, [facility] [place] [facility] [address] [id number] [place] [address]- 3958 Nov, [facility] [place] [facility] [address] [id number] [place] [address]- 4157 Nov, [facility] [place] [facility] [address] [id number] [place] [address]- 0490 Nov, [facility] [place] [facility] [address] [id number] [place] [address]- 0646 Nov, [facility] [address] [id number] [place] [address]- 1314 Oct, [facility] [place] [facility] [address] [id number] [place] [address]- 0737 Oct, [facility] [address] [id number] [place] [address]- 2361 September, [facility] [place] [facility] [address] [id number] [place] [address]- 3419 September, [facility] [address] [id number] [place] [address]- 5172 September, [facility] [address] [id number] [place] 3212 September, [facility] [address] [id number] [place] [address]- 0621 September, [facility] [address] [id number] [place] [address]- 1555 September, [facility] [address] [id number] [place] [address]- 7860 September, [facility] [place] [facility] [address] [id number] [place] [address]- 5830 September, [facility] [address] [id number] [place] [address]- 9211 September, [facility] [place] [facility] [address] [id number] [place] [address]- 0916 September, [facility] [place] [facility] [address] [id number] [place] [address]- 9232 September, [facility] [place] [facility] [address] [id number] [place] [address]- 6246 September, [facility] [place] [facility] [address] [id number] [place] [address]- 1769 September, [facility] [place] [facility] [address] [id number] [place] [address]- 6406 September, [facility] [address] [id number] [place] [address]- 6566 24 Aug, 2011 [facility] [place] [facility] [address] [id number] [place] [address]- 6506 20 Aug, 2011 [facility] [address] [id number] [place] [address]- 8466 13 Aug, 2011 [facility] [place] [facility] [address] [id number] [place] [address]- 1106 11 Aug, 2011 [facility] [address] [id number] [place] [address]- 9466 23 Jul, 2011 [facility] [address] [id number] [place] [address]- 1066 13 Jul, 2011 [facility] [address] [id number] [place] [address]- 2334 13 Jul, 2011 [facility] [address] [id number] [place] [address]- 4010 28 Jun, 2011 [facility] [address] [facility] [id number] [place] [id number] 26 Jun, 2011 [facility] [address] [id number] [place] [address]- 4046 13 Jun, 2011 [facility] [place] [facility] [address] [id number] [place] [address]- 8306 10 Jun, 2011 [facility] [address] [id number] [address]- 9496 07 Jun, 2011 [facility] [place] [facility] [address] [id number] [place] [address]- 6396 07 Jun, 2011 [facility] [place] [facility] [address] [id number] [place] [address]- 2546 03 Jun, 2011 [facility] [place] [facility] [address] [id number] [place] [address]- 7216 Jun, [facility] [address] [id number] [place] [address]- 3300 May, [facility] [address] [id number] [place] [address]- 0126 May, [facility] [address] [id number] [place] [address]- 8098 May, [facility] [address] [id number] [place] [address]- 0263 May, [facility] [address] [id number] [place] [address]- 4096 May, [facility] [address] [id number] [place] [address]- 8364 May, [facility] [address] [id number] [place] [address]- 2132 May, [facility] [place] [facility] [address] [id number] [place] [address]- 8486 May, [facility] [address] [id number] [place] [address]- 9444 May, [facility] [place] [facility] [address] [id number] [place] [address]- 6725 May, [facility] [address] [id number][place] [address]- 2366 May, [facility] [place] [facility] [address] [id number], [place] [address]- 9582 May, [facility] [place] [facility] [address] [id number] [place] [address]- 1230 May, [facility] [place] [facility] [address] [id number] [address]- 5246 May, [facility] [place] [facility] [address] [id number] [place] [address]- 8277 Apr, [facility] [place] [facility] [address] [id number] [place] [address] 16 Apr, 2011 [facility] [place] [facility] [address] [id number] [place] [address] 05 Apr, 2011 [facility] [place] [facility] [address] [id number] [place] [address] 17 Mar, 2011 [facility] [place] [facility] [address] [id number] [place] [address] Mar, [facility] [place] [facility] [address] [id number] [place] [address] 31 Feb, 2011 [facility] [place] [facility] [address] [id number] [place] [address] 26 Feb, 2011 [facility] [place] [facility] [address] [id number] [place] [address] Feb, [facility] [place] [facility] [address] [id number] [place] [address] 20 Feb, 2011 [facility] [place] [facility] [address] [id number] [place] [address] Feb, [facility] [place] [facility] [address] [id number] [place] [address] 28 Apr, 2010 [facility] [place] [facility] [address] [id number] [place] [address] 22 Apr, 2010 [facility] [place] [facility] [address] [id number] [place] [address]46 16 Apr, 2010 [facility] [place] [facility] [address] [id number] [place] [address]46 15 Apr, 2010 [facility] [place] [facility] [address] [id number] [place] [address] 2546 15 Apr, 2010 [facility] [place] [facility] [address] [id number] [place] [address] 25[address] Apr, [facility] [place] [facility] [address] [id number] [place] [address] Mar, [facility] [id number] [address] Mar, [facility] [id number] [address] Mar, [facility] [id number] [address] Feb, [facility] [id number] [place] [id number] Feb, [facility] [id number] [address] Feb, [facility] [id number] [place] [address] Feb, [facility] [id number] [address] Dec, [facility] [id number] [place] [address] Dec, [facility] [id number] [address] Oct, [facility] [id number] [address] Mar, [facility] [address] [address] Mar, [facility] [address] [address] September, IMMUNIZATIONS No Known Immunizations SOCIAL HISTORY Never Assessed REASON FOR VISIT [facility] f/u [facility], PT received steroid shots yesterday 10/11/17, [facility] 10/02/17 after falling on her right knee replacement PLAN OF CARE Activity Details Follow Up prn Reason: VITAL SIGNS Height 64 in 2017-10-12 Weight 131.6 lbs 2017-10-12 Temperature 98.5 degrees Fahrenheit 2017-10-12 Heart Rate 60 bpm 2017-10-12 Respiratory Rate 20 2017-10-12 Oximetry on room air:98 % 2017-10-12 BMI 22.59 kg/m2 2017-10-12 Blood pressure systolic 138 mmHg 2017-10-12 Blood pressure diastolic 88 mmHg 2017-10-12 MEDICATIONS Medication Instructions Dosage Frequency Start Date End Date Duration Status Chlordiazepoxide HCl 10 MG Orally Three times a day 2 capsules 8h Aug, 28 days Active Robaxin 500 mg Orally 4 times a day 1 tablet 6h 30 Active Bentyl 20 mg Orally Four times a day 1 tablet 6h Active Acetaminophen-Codeine #3 300-30 MG Orally every 6 hrs 1 tablet as needed 6h 07 Oct, 2016 28 days Active Ventolin HFA 108 (90 Base) MCG/ACT Inhalation every 4 hrs 2 puffs as needed 4h Nov, Active Lisinopril 20 MG Orally Once a day 1 tablet 24h September, 30 days Active Toprol XL 50 MG Orally once daily 1 tablet 24h 24 Aug, 2016 Active Fluticasone Propionate 50 MCG/ACT Nasally twice a day 1 spray in each nostril 12h Feb, 30 day(s) Active Pantoprazole Sodium 40 MG Orally Once a day 1 tablet 24h 14 Jun, 2017 30 days Active Neurontin 100 mg Orally 3 times a day 1 capsule 8h September, 30 days Active Macrobid 100 MG TAKE ONE CAPSULE BY MOUTH ONCE DAILY WITH FOOD 90 Active Lansoprazole 30 MG Orally Once a day 1 capsule 24h 30 days Active Dicyclomine HCl 20 mg Orally 3 times a day 1 tablet 8h 20 Apr, 2017Oct 30 days Active RESULTS No Results PROCEDURES Procedure Date Ordered Result Body Site [facility] VISIT ESTABLISHED PATIENT October 12, 2017 INSTRUCTIONS MEDICATIONS ADMINISTERED No Known Medications [...]
--- OUTSIDE RECORDS SUMMARY | 2018-01-08 16:34 | XMS REPORT | Continuity of Care Document ---
Author Author [facility] Address Unknown Phone Unavailable Allergies Active Description Code Type Severity Reaction Onset Reported/Identified Relationship to Patient Clinical Status Yes fear of needles-will pass out OA N/A N/A 08/14/2008 Yes fear of needles-will pass out OA 08/14/2008 Yes hydrochlorothiazide Drug Allergy N/A N/A 01/27/2009 Yes hydrochlorothiazide Drug Allergy 01/27/2009 Yes sulfa drug Drug Allergy 06/23/2010 Yes acetaminophen [id number] Drug Allergy Unknown NAUSEA 10/29/2014 Yes hydrocodone [id number] Drug Allergy Unknown NAUSEA 10/29/2014 Yes fentanyl [id number] Drug Allergy Unknown N/A 01/01/2015 Yes acetaminophen [id number] Drug Allergy Unknown N/A 05/29/2016 Yes hydrocodone [id number] Drug Allergy Unknown N/A 05/29/2016 Yes adhesive [id number] Drug Allergy Unknown N/A 12/31/2017 Yes meperidine [id number] Drug Allergy Unknown HALLUCINATIONS 12/31/2017 Yes pregabalin [id number] Drug Allergy Unknown N/A 12/31/2017 Yes Sulfa (Sulfonamide Antibiotics) [id number] Drug Allergy Unknown N/A 2017 Medications There is no data. Problems Date [...] 08/14/2008 789.00 Abdominal Pain 08/14/2008 SALLY SUPERVISOR WINTER, VALERIE S 599.70 Blood In Urine 08/14/2008 SALLY SUPERVISOR WINTER, VALERIE S 789.00 Abdominal Pain 08/14/2008 YATES DO, KARO K 599.70 Blood In Urine 08/14/2008 YATES DO, KARO K 789.00 Abdominal Pain 08/14/2008 SALLY SUPERVISOR WINTER, VALERIE S 599.70 Blood In Urine 08/14/2008 SALLY SUPERVISOR WINTER, VALERIE S 789.00 Abdominal Pain 08/14/2008 SALLY SUPERVISOR WINTER, VALERIE S 599.70 Blood In Urine 08/14/2008 SALLY SUPERVISOR WINTER, VALERIE S 789.00 Abdominal Pain 08/14/2008 YATES [...] 599.70 Blood In Urine 08/14/2008 SALLY SUPERVISOR WINTER, VALERIE S 789.00 Abdominal Pain 08/14/2008 YATES DO, KARO K 599.70 Blood In Urine 08/14/2008 YATES DO, KARO K 789.00 Abdominal Pain 08/14/2008 SALLY SUPERVISOR WINTER, VALERIE S 599.70 Blood In Urine 08/14/2008 SALLY SUPERVISOR WINTER, VALERIE S 789.00 Abdominal Pain 08/14/2008 YATES DO, KARO K 599.70 Blood In Urine 08/14/2008 YATES DO, KARO K 789.00 Abdominal Pain 08/14/2008 SALLY SUPERVISOR WINTER, VALERIE S 599.70 Blood In Urine 08/14/2008 SALLY SUPERVISOR WINTER, VALERIE S 789.00 Abdominal Pain 08/14/2008 SALLY SUPERVISOR WINTER, VALERIE S 599.70 Blood In Urine 08/14/2008 SALLY SUPERVISOR WINTER, VALERIE S 789.00 Abdominal Pain 08/14/2008 SALLY SUPERVISOR WINTER, VALERIE S 599.70 Blood In Urine 08/14/2008 SALLY SUPERVISOR WINTER, VALERIE S 789.00 Abdominal Pain 08/14/2008 SALLY SUPERVISOR WINTER, VALERIE S 599.70 Blood In Urine 08/14/2008 SALLY SUPERVISOR WINTER, VALERIE S 789.00 Abdominal Pain 08/14/2008 SALLY SUPERVISOR WINTER, VALERIE S 599.70 Blood In Urine 08/14/2008 SALLY SUPERVISOR WINTER, VALERIE S 789.00 Abdominal Pain 08/14/2008 SALLY SUPERVISOR WINTER, VALERIE S 599.70 Blood In Urine 08/14/2008 SALLY SUPERVISOR WINTER, VALERIE S 789.00 Abdominal Pain 08/14/2008 SALLY SUPERVISOR WINTER, VALERIE S 599.70 Blood In Urine 08/14/2008 SALLY SUPERVISOR WINTER, VALERIE S 789.00 Abdominal Pain 08/14/2008 YATES DO, KARO K 599.70 Blood In Urine 08/14/2008 YATES DO, KARO K 789.00 Abdominal Pain 08/14/2008 SALLY SUPERVISOR WINTER, VALERIE S 599.70 Blood In Urine 08/14/2008 SALLY SUPERVISOR WINTER, VALERIE S 789.00 Abdominal Pain 08/14/2008 YATES DO, KARO K 599.70 Blood In Urine 08/14/2008 YATES DO, KARO K 789.00 Abdominal Pain 08/14/2008 SALLY SUPERVISOR WINTER, VALERIE S 599.70 Blood In Urine 08/14/2008 SALLY SUPERVISOR WINTER, VALERIE S 789.00 Abdominal Pain 08/14/2008 SALLY SUPERVISOR WINTER, VALERIE S 599.70 Blood In Urine 08/14/2008 SALLY SUPERVISOR WINTER, VALERIE S 789.00 Abdominal Pain 08/14/2008 SALLY SUPERVISOR WINTER, VALERIE S 599.70 Blood In Urine 08/14/2008 SALLY SUPERVISOR WINTER, VALERIE S 789.00 Abdominal Pain 08/14/2008 YATES DO, KARO K 599.70 Blood In Urine 08/14/2008 YATES DO, KARO K 789.00 Abdominal Pain 08/14/2008 SALLY SUPERVISOR WINTER, VALERIE S 599.70 Blood In Urine 08/14/2008 SALLY SUPERVISOR WINTER, VALERIE S 789.00 Abdominal Pain 09/09/2008 YATES DO, KARO K 599.0 Urinary Tract Infection 09/09/2008 YATES DO, KARO K 599.0 Urinary Tract Infection 09/09/2008 TACO SUPERVISOR WINTER, ZORAIDA R 599.0 Urinary Tract Infection 09/09/2008 599.0 Urinary Tract Infection 09/09/2008 SALLY SUPERVISOR WINTER, VALERIE S 599.0 Urinary Tract Infection 09/09/2008 YATES DO, KARO K 599.0 Urinary Tract Infection 09/09/2008 SALLY SUPERVISOR WINTER, VALERIE S 599.0 Urinary Tract Infection 09/09/2008 SALLY SUPERVISOR WINTER, VALERIE S 599.0 Urinary Tract Infection 09/09/2008 YATES DO, KARO K 599.0 Urinary Tract Infection 09/09/2008 599.0 Urinary Tract Infection 09/09/2008 599.0 Urinary Tract Infection 09/09/2008 599.0 Urinary Tract Infection 09/09/2008 MICHELLE CAMARGO MD 599.0 Urinary Tract Infection 09/09/2008 SALLY SUPERVISOR WINTER, VALERIE S 599.0 Urinary Tract Infection 09/09/2008 SALLY SUPERVISOR WINTER, VALERIE S 599.0 Urinary Tract Infection 09/09/2008 YATES DO, KARO K 599.0 Urinary Tract Infection 09/09/2008 SALLY SUPERVISOR WINTER, VALERIE S 599.0 Urinary Tract Infection 09/09/2008 YATES DO, KARO K 599.0 Urinary Tract Infection 09/09/2008 SALLY SUPERVISOR WINTER, VALERIE S 599.0 Urinary Tract Infection 09/09/2008 SALLY SUPERVISOR WINTER, VALERIE S 599.0 Urinary Tract Infection 09/09/2008 SALLY SUPERVISOR WINTER, VALERIE S 599.0 Urinary Tract Infection 09/09/2008 SALLY SUPERVISOR WINTER, VALERIE S 599.0 Urinary Tract Infection 09/09/2008 SALLY SUPERVISOR WINTER, VALERIE S 599.0 Urinary Tract Infection 09/09/2008 SALLY SUPERVISOR WINTER, VALERIE S 599.0 Urinary Tract Infection 09/09/2008 SALLY SUPERVISOR WINTER, VALERIE S 599.0 Urinary Tract Infection 09/09/2008 YATES DO, KARO K 599.0 Urinary Tract Infection 09/09/2008 SALLY SUPERVISOR WINTER, VALERIE S 599.0 Urinary Tract Infection 09/09/2008 YATES DO, KARO K 599.0 Urinary Tract Infection 09/09/2008 SALLY SUPERVISOR WINTER, VALERIE S 599.0 Urinary Tract Infection 09/09/2008 SALLY SUPERVISOR WINTER, VALERIE S 599.0 Urinary Tract Infection 09/09/2008 SALLY SUPERVISOR WINTER, VALERIE S 599.0 Urinary Tract Infection 09/09/2008 YATES DO, KARO K 599.0 Urinary Tract Infection 09/09/2008 SALLY SUPERVISOR WINTER, VALERIE S 599.0 Urinary Tract Infection 09/30/2008 YATES DO, KARO K 564.1 IRRITABLE BOWEL SYNDROME 09/30/2008 YATES DO, KARO K 724.2 LUMBAGO 09/30/2008 YATES DO, KARO K 564.1 IRRITABLE BOWEL SYNDROME 09/30/2008 YATES DO, KARO K 724.2 LUMBAGO 09/30/2008 CHARLEEN ESPAÑA APRNRICIA R 564.1 IRRITABLE BOWEL SYNDROME 09/30/2008 TACO SUPERVISOR WINTER ZORAIDA R 724.2 LUMBAGO 09/30/2008 564.1 IRRITABLE BOWEL SYNDROME 09/30/2008 724.2 LUMBAGO 09/30/2008 SALLY SUPERVISOR WINTER, VALERIE S 564.1 IRRITABLE BOWEL SYNDROME 09/30/2008 SALLY SUPERVISOR WINTER, VALERIE S 724.2 LUMBAGO 09/30/2008 YATES DO, KARO K 564.1 IRRITABLE BOWEL SYNDROME 09/30/2008 YATES DO, KARO K 724.2 LUMBAGO 09/30/2008 SALLY SUPERVISOR WINTER, VALERIE S 564.1 IRRITABLE BOWEL SYNDROME 09/30/2008 [...] 564.1 IRRITABLE BOWEL SYNDROME 09/30/2008 SALLY SUPERVISOR WINTER, VALERIE S 724.2 LUMBAGO 09/30/2008 SALLY SUPERVISOR WINTER, VALERIE S 564.1 IRRITABLE BOWEL SYNDROME 09/30/2008 SALLY SUPERVISOR WINTER, VALERIE S 724.2 LUMBAGO 09/30/2008 SALLY SUPERVISOR WINTER, VALERIE S 564.1 IRRITABLE BOWEL SYNDROME 09/30/2008 SALLY SUPERVISOR WINTER, VALERIE S 724.2 LUMBAGO 09/30/2008 SALLY SUPERVISOR WINTER, VALERIE S 564.1 IRRITABLE BOWEL SYNDROME 09/30/2008 SALLY SUPERVISOR WINTER, VALERIE S 724.2 LUMBAGO 09/30/2008 SALLY SUPERVISOR WINTER, VALERIE S 564.1 IRRITABLE BOWEL SYNDROME 09/30/2008 SALLY SUPERVISOR WINTER, VALERIE S 724.2 LUMBAGO 09/30/2008 SALLY SUPERVISOR WINTER, VALERIE S 564.1 IRRITABLE BOWEL SYNDROME 09/30/2008 SALLY SUPERVISOR WINTER, VALERIE S 724.2 LUMBAGO 09/30/2008 YATES DO, KARO K 564.1 IRRITABLE BOWEL SYNDROME 09/30/2008 YATES DO, KARO K 724.2 LUMBAGO 09/30/2008 SALLY SUPERVISOR WINTER, VALERIE S 564.1 IRRITABLE BOWEL SYNDROME 09/30/2008 SALLY SUPERVISOR WINTER, VALERIE S 724.2 LUMBAGO 09/30/2008 YATES DO, KARO K 564.1 IRRITABLE BOWEL SYNDROME 09/30/2008 YATES DO, KARO K 724.2 LUMBAGO 09/30/2008 SALLY SUPERVISOR WINTER, VALERIE S 564.1 IRRITABLE BOWEL SYNDROME 09/30/2008 SALLY SUPERVISOR WINTER, VALERIE S 724.2 LUMBAGO 09/30/2008 SALLY SUPERVISOR WINTER, VALERIE S 564.1 IRRITABLE BOWEL SYNDROME 09/30/2008 SALLY SUPERVISOR WINTER, VALERIE S 724.2 LUMBAGO 09/30/2008 SALLY SUPERVISOR WINTER, VALERIE S 564.1 IRRITABLE BOWEL SYNDROME 09/30/2008 SALLY SUPERVISOR WINTER, VALERIE S 724.2 LUMBAGO 09/30/2008 YATES DO, KARO K 564.1 IRRITABLE BOWEL SYNDROME 09/30/2008 YATES DO, KARO K 724.2 LUMBAGO 09/30/2008 SALLY SUPERVISOR WINTER, VALERIE S 564.1 IRRITABLE BOWEL SYNDROME 09/30/2008 SALLY SUPERVISOR WINTER, VALERIE S 724.2 LUMBAGO 10/21/2008 YATES DO, KARO K 788.1 Dysuria 10/21/2008 YATES DO, KARO K 788.1 Dysuria 10/21/2008 TACO SUPERVISOR WINTER, ZORAIDA R 788.1 Dysuria 10/21/2008 788.1 Dysuria 10/21/2008 SALLY SUPERVISOR WINTER, VALERIE S 788.1 Dysuria 10/21/2008 YATES DO, KARO K 788.1 Dysuria 10/21/2008 SALLY SUPERVISOR WINTER, VALERIE S 788.1 Dysuria 10/21/2008 SALLY SUPERVISOR WINTER, VALERIE S 788.1 Dysuria 10/21/2008 YATES DO, KARO K 788.1 Dysuria 10/21/2008 788.1 Dysuria 10/21/2008 788.1 Dysuria 10/21/2008 788.1 Dysuria 10/21/2008 MARY JO ABRAMS, MICHELLE 788.1 Dysuria 10/21/2008 SALLY SUPERVISOR WINTER, VALERIE S 788.1 Dysuria 10/21/2008 SALLY SUPERVISOR WINTER, VALERIE S 788.1 Dysuria 10/21/2008 YATES DO, KARO K 788.1 Dysuria 10/21/2008 SALLY SUPERVISOR WINTER, VALERIE S 788.1 Dysuria 10/21/2008 YATES DO, KARO K 788.1 Dysuria 10/21/2008 SALLY SUPERVISOR WINTER, VALERIE S 788.1 Dysuria 10/21/2008 SALLY SUPERVISOR WINTER, VALERIE S 788.1 Dysuria 10/21/2008 SALLY SUPERVISOR WINTER, VALERIE S 788.1 Dysuria 10/21/2008 SALLY SUPERVISOR WINTER, VALREIE S 788.1 Dysuria 10/21/2008 SALLY SUPERVISOR WINTER, VALERIE S 788.1 Dysuria 10/21/2008 SALLY SUPERVISOR WINTER, VALERIE S 788.1 Dysuria 10/21/2008 SALLY SUPERVISOR WINTER, VALERIE S 788.1 Dysuria 10/21/2008 YATES DO, KARO K 788.1 Dysuria 10/21/2008 SALLY SUPERVISOR WINTER, VALERIE S 788.1 Dysuria 10/21/2008 YATES DO, KARO K 788.1 Dysuria 10/21/2008 SALLY SUPERVISOR WINTER, VALERIE S 788.1 Dysuria 10/21/2008 SALLY SUPERVISOR WINTER, VALERIE S 788.1 Dysuria 10/21/2008 SALLY SUPERVISOR WINTER, VALERIE S 788.1 Dysuria 10/21/2008 YATES DO, KARO K 788.1 Dysuria 10/21/2008 SALLY SUPERVISOR WINTER, VALERIE S 788.1 Dysuria 01/13/2009 YATES DO, KARO K 300.00 Anxiety State Unspecified 01/13/2009 YATES DO, KARO K 401.9 UNSPECIFIED ESSENTIAL HYPERTENSION 01/13/2009 YATES DO, KARO K 300.00 Anxiety State Unspecified 01/13/2009 YATES DO, KARO K 401.9 UNSPECIFIED ESSENTIAL HYPERTENSION 01/13/2009 ESPAÑA SUPERVISOR WINTER, ZORAIDA R 300.00 Anxiety State Unspecified 01/13/2009 ESPAÑA SUPERVISOR WINTER, ZORAIDA R 401.9 UNSPECIFIED ESSENTIAL HYPERTENSION 01/13/2009 300.00 Anxiety State Unspecified 01/13/2009 401.9 UNSPECIFIED ESSENTIAL HYPERTENSION 01/13/2009 SALLY SUPERVISOR WINTER, VALERIE S 300.00 Anxiety State Unspecified 01/13/2009 SALLY SUPERVISOR WINTER, VALERIE S 401.9 UNSPECIFIED ESSENTIAL HYPERTENSION 01/13/2009 YATES DO, KARO K 300.00 Anxiety State Unspecified 01/13/2009 YATES DO, KARO K 401.9 UNSPECIFIED ESSENTIAL HYPERTENSION 01/13/2009 SALLY SUPERVISOR WINTER, VALERIE S 300.00 Anxiety State Unspecified 01/13/2009 SALLY SUPERVISOR WINTER, VALERIE S 401.9 UNSPECIFIED ESSENTIAL HYPERTENSION 01/13/2009 SALLY SUPERVISOR WINTER, VALERIE S 300.00 Anxiety State Unspecified 01/13/2009 SALLY SUPERVISOR WINTER, VALERIE S 401.9 UNSPECIFIED ESSENTIAL HYPERTENSION 01/13/2009 [...] 401.9 UNSPECIFIED ESSENTIAL HYPERTENSION 01/13/2009 SALLY SUPERVISOR WINTER VALERIE S 300.00 Anxiety State Unspecified 01/13/2009 SALLY RIVERA VALERIE S 401.9 UNSPECIFIED ESSENTIAL HYPERTENSION 01/13/2009 SALLY PERSAUDN VALERIE S 300.00 Anxiety State Unspecified 01/13/2009 SERINA ZAVALA APRNNDA S 401.9 UNSPECIFIED ESSENTIAL HYPERTENSION 01/13/2009 YATES DO, KARO K 300.00 Anxiety State Unspecified 01/13/2009 YATES DO, KARO K 401.9 UNSPECIFIED ESSENTIAL HYPERTENSION 01/13/2009 SALLY SUPERVISOR WINTER VALERIE S 300.00 Anxiety State Unspecified 01/13/2009 SALLY SUPERVISOR WINTER VALERIE S 401.9 UNSPECIFIED ESSENTIAL HYPERTENSION 01/13/2009 YATES DO, KARO K 300.00 Anxiety State Unspecified 01/13/2009 YATES DO, KARO K 401.9 UNSPECIFIED ESSENTIAL HYPERTENSION 01/13/2009 SALLY SUPERVISOR WINTER, VALERIE S 300.00 Anxiety State Unspecified 01/13/2009 SALLY SUPERVISOR WINTER, VALERIE S 401.9 UNSPECIFIED ESSENTIAL HYPERTENSION 01/13/2009 SALLY SUPERVISOR WINTER, VALERIE S 300.00 Anxiety State Unspecified 01/13/2009 SALLY SUPERVISOR WINTER VALERIE S 401.9 UNSPECIFIED ESSENTIAL HYPERTENSION 01/13/2009 SALLY SUPERVISOR WINTER, VALERIE S 300.00 Anxiety State Unspecified 01/13/2009 SALLY SUPERVISOR WINTER, VALERIE S 401.9 UNSPECIFIED ESSENTIAL HYPERTENSION 01/13/2009 SALLY SUPERVISOR WINTER, VALERIE S 300.00 Anxiety State Unspecified 01/13/2009 SALLY SUPERVISOR WINTER, VALERIE S 401.9 UNSPECIFIED ESSENTIAL HYPERTENSION 01/13/2009 SALLY SUPERVISOR WINTER, VALERIE S 300.00 Anxiety State Unspecified 01/13/2009 SALLY SUPERVISOR WINTER, VALERIE S 401.9 UNSPECIFIED ESSENTIAL HYPERTENSION 01/13/2009 SALLY SUPERVISOR WINTER, VALERIE S 300.00 Anxiety State Unspecified 01/13/2009 SALLY SUPERVISOR WINTER, VALERIE S 401.9 UNSPECIFIED ESSENTIAL HYPERTENSION 01/13/2009 SALLY SUPERVISOR WINTER, VALERIE S 300.00 Anxiety State Unspecified 01/13/2009 SALLY SUPERVISOR WINTER, VALERIE S 401.9 UNSPECIFIED ESSENTIAL HYPERTENSION 01/13/2009 YATES DO, KARO K 300.00 Anxiety State Unspecified 01/13/2009 YATES DO, KARO K 401.9 UNSPECIFIED ESSENTIAL HYPERTENSION 01/13/2009 SALLY SUPERVISOR WINTER, VALERIE S 300.00 Anxiety State Unspecified 01/13/2009 SALLY SUPERVISOR WINTER, VALERIE S 401.9 UNSPECIFIED ESSENTIAL HYPERTENSION 01/13/2009 YATES DO, KARO K 300.00 Anxiety State Unspecified 01/13/2009 YATES DO, KARO K 401.9 UNSPECIFIED ESSENTIAL HYPERTENSION 01/13/2009 SALLY SUPERVISOR WINTER, VALERIE S 300.00 Anxiety State Unspecified 01/13/2009 SALLY SUPERVISOR WINTER, VALERIE S 401.9 UNSPECIFIED ESSENTIAL HYPERTENSION 01/13/2009 SALLY SUPERVISOR WINTER, VALERIE S 300.00 Anxiety State Unspecified 01/13/2009 SALLY SUPERVISOR WINTER, VALERIE S 401.9 UNSPECIFIED ESSENTIAL HYPERTENSION 01/13/2009 SALLY SUPERVISOR WINTER, VALERIE S 300.00 Anxiety State Unspecified 01/13/2009 SALLY SUPERVISOR WINTER, VALERIE S 401.9 UNSPECIFIED ESSENTIAL HYPERTENSION 01/13/2009 YATES DO, KARO K 300.00 Anxiety State Unspecified 01/13/2009 YATES DO, KARO K 401.9 UNSPECIFIED ESSENTIAL HYPERTENSION 01/13/2009 SALLY SUPERVISOR WINTER, VALERIE S 300.00 Anxiety State Unspecified 01/13/2009 SALLY SUPERVISOR WINTER, VALERIE S 401.9 UNSPECIFIED ESSENTIAL HYPERTENSION 03/25/2009 YATES DO, KARO K 296.90 Episodic Mood Disorders 03/25/2009 YATES DO, KARO K 780.79 Feelings Of Weakness 03/25/2009 YATES DO, KARO K 787.91 Diarrhea 03/25/2009 YATES DO, KARO K 296.90 Episodic Mood Disorders 03/25/2009 YATES DO, KARO K 780.79 Feelings Of Weakness 03/25/2009 YATES DO, KARO K 787.91 Diarrhea 03/25/2009 ESPAÑA SUPERVISOR WINTER, ZORAIDA R 296.90 Episodic Mood Disorders 03/25/2009 ESPAÑA SUPERVISOR WINTER, ZORAIDA R 780.79 Feelings Of Weakness 03/25/2009 ESPAÑA SUPERVISOR WINTER, ZORAIDA R 787.91 Diarrhea 03/25/2009 296.90 Episodic Mood Disorders 03/25/2009 780.79 Feelings Of Weakness 03/25/2009 787.91 Diarrhea 03/25/2009 SALLY RIVERA VALERIE S 296.90 Episodic Mood Disorders 03/25/2009 SERINA ZAVALA APRNNDA S 780.79 Feelings Of Weakness 03/25/2009 SERINA ZAVALA APRNNDA S 787.91 Diarrhea 03/25/2009 YATES DO, KARO K 296.90 Episodic Mood Disorders 03/25/2009 YATES DO, KARO K 780.79 Feelings Of Weakness 03/25/2009 YATES DO, KRAO K 787.91 Diarrhea 03/25/2009 SALLY RIVERA VALERIE S 296.90 Episodic Mood Disorders 03/25/2009 SALLY RIVERA VALERIE S 780.79 Feelings Of Weakness 03/25/2009 SERINA ZAVALA APRNNDA S 787.91 Diarrhea 03/25/2009 SERINA ZAVALA APRNNDA S 296.90 Episodic Mood Disorders 03/25/2009 SALLY RIVERA VALERIE S 780.79 Feelings Of Weakness 03/25/2009 SALLY SUPERVISOR WINTER, VALERIE S 787.91 Diarrhea 03/25/2009 YATES DO, [...] RIVERA VALERIE S 787.91 Diarrhea 03/25/2009 SALLY RIVEAR VALERIE S 296.90 Episodic Mood Disorders 03/25/2009 [...] KARO K 787.91 Diarrhea 03/25/2009 SALLY SUPERVISOR WINTER, VALERIE S 296.90 Episodic Mood Disorders 03/25/2009 SALLY RIVERA VALEREI S 780.79 Feelings Of Weakness 03/25/2009 SALLY SUPERVISOR WINTER VALERIE S 787.91 Diarrhea 03/25/2009 SALLY SUPERVISOR WINTER VALERIE S 296.90 Episodic Mood Disorders 03/25/2009 [...] 296.90 Episodic Mood Disorders 03/25/2009 SALLY SUPERVISOR WINTER, VALERIE S 780.79 Feelings Of Weakness 03/25/2009 SALLY RIVERA VALERIE S 787.91 Diarrhea 03/25/2009 SALLY SUPERVISOR WINTER, VALERIE S 296.90 Episodic Mood Disorders 03/25/2009 SALLY SUPERVISOR WINTER, VALERIE S 780.79 Feelings Of Weakness 03/25/2009 [...] MICHELLE 599.71 Gross Hematuria 10/20/2009 SALLY SUPERVISOR WINTER, VALERIE S 599.71 Gross Hematuria 10/20/2009 SALLY SUPERVISOR WINTER, VALERIE S 599.71 Gross Hematuria 10/20/2009 YATES DO, KARO K 599.71 Gross Hematuria 10/20/2009 SALLY SUPERVISOR WINTER, VALERIE S 599.71 Gross Hematuria 10/20/2009 YATES DO, KARO K 599.71 Gross Hematuria 10/20/2009 SALLY SUPERVISOR WINTER, VALERIE S 599.71 Gross Hematuria 10/20/2009 SALLY SUPERVISOR WINTER, VALERIE S 599.71 Gross Hematuria 10/20/2009 SALLY SUPERVISOR WINTER, VALERIE S 599.71 Gross Hematuria 10/20/2009 SALLY SUPERVISOR WINTER, VALERIE S 599.71 Gross Hematuria 10/20/2009 SALLY SUPERVISOR WINTER, VALERIE S 599.71 Gross Hematuria 10/20/2009 SALLY SUPERVISOR WINTER, VALERIE S 599.71 Gross Hematuria 10/20/2009 SALLY SUPERVISOR WINTER, VALERIE S 599.71 Gross Hematuria 10/20/2009 YATES DO, KARO K 599.71 Gross Hematuria 10/20/2009 SALLY SUPERVISOR WINTER, VALERIE S 599.71 Gross Hematuria 10/20/2009 YATES DO, KARO K 599.71 Gross Hematuria 10/20/2009 SALLY SUPERVISOR WINTER, VALERIE S 599.71 Gross Hematuria 10/20/2009 SALLY SUPERVISOR WINTER, VALERIE S 599.71 Gross Hematuria 10/20/2009 SALLY SUPERVISOR WINTER, VALERIE S 599.71 Gross Hematuria 10/20/2009 YATES DO, KARO K 599.71 Gross Hematuria 10/20/2009 SALLY SUPERVISOR WINTER, VALERIE S 599.71 Gross Hematuria 10/27/2009 YATES [...] K 788.41 Urinary Frequency 10/27/2009 ESPAÑA SUPERVISOR WINTER, ZORAIDA R 305.1 NICOTINE DEPENDENCE 10/27/2009 ESPAÑA SUPERVISOR WINTER, ZORAIDA R 307.40 Insomnia 10/27/2009 ESPAÑA SUPERVISOR WINTER, ZORAIDA R 536.8 Dyspepsia And Other Specified Disorders Of Function Of Stomach 10/27/2009 ESPAÑA SUPERVISOR WINTER, ZORAIDA R 788.41 Urinary Frequency 10/27/2009 305.1 NICOTINE DEPENDENCE 10/27/2009 307.40 Insomnia 10/27/2009 536.8 Dyspepsia And Other Specified Disorders Of Function Of Stomach 10/27/2009 788.41 Urinary Frequency 10/27/2009 SALLY SUPERVISOR WINTER, VALERIE S 305.1 NICOTINE DEPENDENCE 10/27/2009 SALLY SUPERVISOR WINTER, VALERIE S 307.40 Insomnia 10/27/2009 SALLY SUPERVISOR WINTER, VALERIE S 536.8 Dyspepsia And Other Specified Disorders Of Function Of Stomach 10/27/2009 SALLY SUPERVISOR WINTER, VALERIE S 788.41 Urinary Frequency 10/27/2009 YATES DO, KARO K 305.1 NICOTINE DEPENDENCE 10/27/2009 YATES DO, KARO K 307.40 Insomnia 10/27/2009 YATES DO, KARO K 536.8 Dyspepsia And Other Specified Disorders Of Function Of Stomach 10/27/2009 YATES DO, KARO K 788.41 Urinary Frequency 10/27/2009 SALLY SUPERVISOR WINTER, VALERIE S 305.1 NICOTINE DEPENDENCE 10/27/2009 SALLY SUPERVISOR WINTER, VALERIE S 307.40 Insomnia 10/27/2009 SALLY SUPERVISOR WINTER, VALERIE S 536.8 Dyspepsia And Other Specified Disorders Of Function Of Stomach 10/27/2009 SALLY SUPERVISOR WINTER, VALERIE S 788.41 Urinary Frequency 10/27/2009 SALLY SUPERVISOR WINTER, VALERIE S 305.1 NICOTINE DEPENDENCE 10/27/2009 SALLY SUPERVISOR WINTER, VALERIE S 307.40 Insomnia 10/27/2009 SALLY SUPERVISOR WINTER, VALERIE S 536.8 Dyspepsia And Other Specified Disorders Of Function Of Stomach 10/27/2009 SALLY SUPERVISOR WINTER, VALERIE S 788.41 Urinary Frequency 10/27/2009 YATES [...] MD 788.41 Urinary Frequency 10/27/2009 SALLY SUPERVISOR WINTER, VALERIE S 305.1 NICOTINE DEPENDENCE 10/27/2009 SLALY PERSAUDN, VALERIE S 307.40 Insomnia 10/27/2009 SALLY SUPERVISOR WINTER, VALERIE S 536.8 Dyspepsia And Other Specified Disorders Of Function Of Stomach 10/27/2009 SALLY SUPERVISOR WINTER, VALERIE S 788.41 Urinary Frequency 10/27/2009 SALLY SUPERVISOR WINTER, VALERIE S 305.1 NICOTINE DEPENDENCE 10/27/2009 SALLY SUPERVISOR WINTER, VALERIE S 307.40 Insomnia 10/27/2009 SALLY SUPERVISOR WINTER, VALERIE S 536.8 Dyspepsia And Other Specified Disorders Of Function Of Stomach 10/27/2009 SALLY SUPERVISOR WINTER, VALERIE S 788.41 Urinary Frequency 10/27/2009 YATES DO, KARO K 305.1 NICOTINE DEPENDENCE 10/27/2009 YATES DO, KARO K 307.40 Insomnia 10/27/2009 YATES DO, KARO K 536.8 Dyspepsia And Other Specified Disorders Of Function Of Stomach 10/27/2009 YATES DO, KARO K 788.41 Urinary Frequency 10/27/2009 SALLY SUPERVISOR WINTER, VALERIE S 305.1 NICOTINE DEPENDENCE 10/27/2009 SALLY SUPERVISOR WINTER, VALERIE S 307.40 Insomnia 10/27/2009 SALLY SUPERVISOR WINTER, VALERIE S 536.8 Dyspepsia And Other Specified Disorders Of Function Of Stomach 10/27/2009 SALLY SUPERVISOR WINTER, VALERIE S 788.41 Urinary Frequency 10/27/2009 YATES DO, KARO K 305.1 NICOTINE DEPENDENCE 10/27/2009 YATES DO, KARO K 307.40 Insomnia 10/27/2009 YATES DO, KARO K 536.8 Dyspepsia And Other Specified Disorders Of Function Of Stomach 10/27/2009 YATES DO, KARO K 788.41 Urinary Frequency 10/27/2009 SALLY SUPERVISOR WINTER, VALERIE S 305.1 NICOTINE DEPENDENCE 10/27/2009 SALLY SUPERVISOR WINTER, VALERIE S 307.40 Insomnia 10/27/2009 SALLY SUPERVISOR WINTER, VALERIE S 536.8 Dyspepsia And Other Specified Disorders Of Function Of Stomach 10/27/2009 SALLY SUPERVISOR WINTER, VALERIE S 788.41 Urinary Frequency 10/27/2009 SALLY SUPERVISOR WINTER, VALERIE S 305.1 NICOTINE DEPENDENCE 10/27/2009 SALLY SUPERVISOR WINTER, VALERIE S 307.40 Insomnia 10/27/2009 SALLY SUPERVISOR WINTER, VALERIE S 536.8 Dyspepsia And Other Specified Disorders Of Function Of Stomach 10/27/2009 SALLY SUPERVISOR WINTER, VALERIE S 788.41 Urinary Frequency 10/27/2009 SALLY SUPERVISOR WINTER, VALERIE S 305.1 NICOTINE DEPENDENCE 10/27/2009 SALLY SUPERVISOR WINTER, VALERIE S 307.40 Insomnia 10/27/2009 SALLY SUPERVISOR WINTER, VALERIE S 536.8 Dyspepsia And Other Specified Disorders Of Function Of Stomach 10/27/2009 SALLY SUPERVISOR WINTER, VALERIE S 788.41 Urinary Frequency 10/27/2009 SALLY SUPERVISOR WINTER, VALERIE S 305.1 NICOTINE DEPENDENCE 10/27/2009 SALLY SUPERVISOR WINTER, VALERIE S 307.40 Insomnia 10/27/2009 SALLY SUPERVISOR WINTER, VALERIE S 536.8 Dyspepsia And Other Specified Disorders Of Function Of Stomach 10/27/2009 SALLY SUPERVISOR WINTER, VALERIE S 788.41 Urinary Frequency 10/27/2009 SALLY SUPERVISOR WINTER, VALERIE S 305.1 NICOTINE DEPENDENCE 10/27/2009 SALLY SUPERVISOR WINTER, VALERIE S 307.40 Insomnia 10/27/2009 SALLY SUPERVISOR WINTER, VALERIE S 536.8 Dyspepsia And Other Specified Disorders Of Function Of Stomach 10/27/2009 SALLY SUPERVISOR WINTER, VALERIE S 788.41 Urinary Frequency 10/27/2009 SALLY SUPERVISOR WINTER, VALERIE S 305.1 NICOTINE DEPENDENCE 10/27/2009 SALLY SUPERVISOR WINTER, VALERIE S 307.40 Insomnia 10/27/2009 SALLY SUPERVISOR WINTER, VALERIE S 536.8 Dyspepsia And Other Specified Disorders Of Function Of Stomach 10/27/2009 SALLY SUPERVISOR WINTER, VALERIE S 788.41 Urinary Frequency 10/27/2009 ASLLY SUPERVISOR WINTER, VALERIE S 305.1 NICOTINE DEPENDENCE 10/27/2009 SALLY SUPERVISOR WINTER, VALERIE S 307.40 Insomnia 10/27/2009 SALLY SUPERVISOR WINTER, VALERIE S 536.8 Dyspepsia And Other Specified Disorders Of Function Of Stomach 10/27/2009 SALLY SUPERVISOR WINTER, VALERIE S 788.41 Urinary Frequency 10/27/2009 YATES DO, KARO K 305.1 NICOTINE DEPENDENCE 10/27/2009 YATES DO, KARO K 307.40 Insomnia 10/27/2009 YATES DO, KARO K 536.8 Dyspepsia And Other Specified Disorders Of Function Of Stomach 10/27/2009 YATES DO, KARO K 788.41 Urinary Frequency 10/27/2009 SALLY SUPERVISOR WINTER, VALERIE S 305.1 NICOTINE DEPENDENCE 10/27/2009 SALLY SUPERVISOR WINTER, VALERIE S 307.40 Insomnia 10/27/2009 SALLY SUPERVISOR WINTER, VALERIE S 536.8 Dyspepsia And Other Specified Disorders Of Function Of Stomach 10/27/2009 SALLY SUPERVISOR WINTER, VALERIE S 788.41 Urinary Frequency 10/27/2009 YATES DO, KARO K 305.1 NICOTINE DEPENDENCE 10/27/2009 YATES DO, KARO K 307.40 Insomnia 10/27/2009 YATES DO, KARO K 536.8 Dyspepsia And Other Specified Disorders Of Function Of Stomach 10/27/2009 YATES DO, KARO K 788.41 Urinary Frequency 10/27/2009 SALLY SUPERVISOR WINTER, VALERIE S 305.1 NICOTINE DEPENDENCE 10/27/2009 SALLY SUPERVISOR WINTER, VALERIE S 307.40 Insomnia 10/27/2009 SALLY SUPERVISOR WINTER, VALERIE S 536.8 Dyspepsia And Other Specified Disorders Of Function Of Stomach 10/27/2009 SALLY SUPERVISOR WINTER, VALERIE S 788.41 Urinary Frequency 10/27/2009 SALLY SUPERVISOR WINTER, VALERIE S 305.1 NICOTINE DEPENDENCE 10/27/2009 SALLY SUPERVISOR WINTER, VALERIE S 307.40 Insomnia 10/27/2009 SALLY SUPERVISOR WINTER, VALERIE S 536.8 Dyspepsia And Other Specified Disorders Of Function Of Stomach 10/27/2009 SALLY SUPERVISOR WINTER, VALERIE S 788.41 Urinary Frequency 10/27/2009 SALLY SUPERVISOR WINTER, VALERIE S 305.1 NICOTINE DEPENDENCE 10/27/2009 SALLY SUPERVISOR WINTER, VALERIE S 307.40 Insomnia 10/27/2009 SALLY SUPERVISOR WINTER, VALERIE S 536.8 Dyspepsia And Other Specified Disorders Of Function Of Stomach 10/27/2009 SALLY SUPERVISOR WINTER, VALERIE S 788.41 Urinary Frequency 10/27/2009 YATES DO, KARO K 305.1 NICOTINE DEPENDENCE 10/27/2009 YATES DO, KARO K 307.40 Insomnia 10/27/2009 YATES DO, KARO K 536.8 Dyspepsia And Other Specified Disorders Of Function Of Stomach 10/27/2009 YATES DO, KARO K 788.41 Urinary Frequency 10/27/2009 SALLY SUPERVISOR WINTER, VALERIE S 305.1 NICOTINE DEPENDENCE 10/27/2009 SALLY SUPERVISOR WINTER, VALERIE S 307.40 Insomnia 10/27/2009 SALLY SUPERVISOR WINTER, VALERIE S 536.8 Dyspepsia And Other Specified Disorders Of Function Of Stomach 10/27/2009 SALLY SUPERVISOR WINTER, VALERIE S 788.41 Urinary Frequency 12/03/2009 YATES DO, KARO K 564.00 Constipation 12/03/2009 YATES DO, KARO K 564.00 Constipation 12/03/2009 ZORAIDA ESPAÑA APRN R 564.00 Constipation 12/03/2009 564.00 Constipation 12/03/2009 SALLY SUPERVISOR WINTER, VALERIE S 564.00 Constipation 12/03/2009 YATES DO, KARO K 564.00 Constipation 12/03/2009 SALLY SUPERVISOR WINTER, VALERIE S 564.00 Constipation 12/03/2009 SALLY SUPERVISOR WINTER, VALERIE S 564.00 Constipation 12/03/2009 YATES DO KARO K 564.00 Constipation 12/03/2009 564.00 Constipation 12/03/2009 564.00 Constipation 12/03/2009 564.00 Constipation 12/03/2009 MICHELLE CAMARGO MD 564.00 Constipation 12/03/2009 SALLY SUPERVISOR WINTER, VALERIE S 564.00 Constipation 12/03/2009 SALLY SUPERVISOR WINTER, VALERIE S 564.00 Constipation 12/03/2009 YATES DO, KARO K 564.00 Constipation 12/03/2009 SALLY SUPERVISOR WINTER, VALERIE S 564.00 Constipation 12/03/2009 YATES DO, KARO K 564.00 Constipation 12/03/2009 SALLY SUPERVISOR WINTER, VALERIE S 564.00 Constipation 12/03/2009 SALLY SUPERVISOR WINTER, VALERIE S 564.00 Constipation 12/03/2009 SALLY SUPERVISOR WINTER, VALERIE S 564.00 Constipation 12/03/2009 SALLY SUPERVISOR WINTER, VALERIE S 564.00 Constipation 12/03/2009 SALLY SUPERVISOR WINTER, VALERIE S 564.00 Constipation 12/03/2009 SALLY SUPERVISOR WINTER, VALERIE S 564.00 Constipation 12/03/2009 SALLY SUPERVISOR WINTER, VALERIE S 564.00 Constipation 12/03/2009 YATES DO KARO K 564.00 Constipation 12/03/2009 SALLY SUPERVISOR WINTER, VALERIE S 564.00 Constipation 12/03/2009 YATES DO, KARO K 564.00 Constipation 12/03/2009 SALLY SUPERVISOR WINTER, VALERIE S 564.00 Constipation 12/03/2009 SALLY SUPERVISOR WINTER, VALERIE S 564.00 Constipation 12/03/2009 SALLY SUPERVISOR WINTER, VALERIE S 564.00 Constipation 12/03/2009 YATES DO, KARO K 564.00 Constipation 12/03/2009 SALLY SUPERVISOR WINTER, VALERIE S 564.00 Constipation 02/22/2010 Ot 530.81 02/22/2010 Ot 789.09 02/22/2010 Ot V12.72 05/11/2010 YATES DO, KARO K 724.5 Back Pain, General 05/11/2010 YATES DO KARO K 724.5 Back Pain, General 05/11/2010 ZORAIDA ESPAÑA APRN 724.5 Back Pain, General 05/11/2010 724.5 Back Pain, General 05/11/2010 SALLY SUPERVISOR WINTER VALERIE S 724.5 Back Pain, General 05/11/2010 YATES DO KARO K 724.5 Back Pain, General 05/11/2010 SALLY SUPERVISOR WINTER, VALERIE S 724.5 Back Pain, General 05/11/2010 SALLY SUPERVISOR WINTER, VALERIE S 724.5 Back Pain, General 05/11/2010 YATES DO KARO K 724.5 Back Pain, General 05/11/2010 724.5 Back Pain, General 05/11/2010 724.5 Back Pain, General 05/11/2010 724.5 Back Pain, General 05/11/2010 MARY JO ABRAMS, MICHELLE 724.5 Back Pain, General 05/11/2010 SALLY SUPERVISOR WINTER, VALERIE S 724.5 Back Pain, General 05/11/2010 SALLY SUPERVISOR WINTER, VALERIE S 724.5 Back Pain, General 05/11/2010 YATES DO KARO K 724.5 Back Pain, General 05/11/2010 SALLY SUPERVISOR WINTER, VALERIE S 724.5 Back Pain, General 05/11/2010 YATES DO KARO K 724.5 Back Pain, General 05/11/2010 SALLY SUPERVISOR WINTER, VALERIE S 724.5 Back Pain, General 05/11/2010 SALLY SUPERVISOR WINTER, VALERIE S 724.5 Back Pain, General 05/11/2010 SALLY SUPERVISOR WINTER, VALERIE S 724.5 Back Pain, General 05/11/2010 SALLY SUPERVISOR WINTER, VALERIE S 724.5 Back Pain, General 05/11/2010 SALLY SUPERVISOR WINTER, VALERIE S 724.5 Back Pain, General 05/11/2010 SALLY SUPERVISOR WINTER, VALERIE S 724.5 Back Pain, General 05/11/2010 SALLY SUPERVISOR WINTER, VALERIE S 724.5 Back Pain, General 05/11/2010 YATES DO, KARO K 724.5 Back Pain, General 05/11/2010 SALLY SUPERVISOR WINTER, VALEREI S 724.5 Back Pain, General 05/11/2010 YATES DO, KARO K 724.5 Back Pain, General 05/11/2010 SALLY SUPERVISOR WINTER, VALERIE S 724.5 Back Pain, General 05/11/2010 SALLY SUPERVISOR WINTER, VALERIE S 724.5 Back Pain, General 05/11/2010 SALLY SUPERVISOR WINTER, VALERIE S 724.5 Back Pain, General 05/11/2010 YATES DO, KARO K 724.5 Back Pain, General 05/11/2010 SALLY SUPERVISOR WINTER, VALERIE S 724.5 Back Pain, General 05/21/2010 YATES DO KARO K 627.9 Menopausal And Postmenopausal Disorder Unspecified 05/21/2010 YATES DO KARO K 722.10 Displacement Of Lumbar Intervertebral Disc Without Myelopathy 05/21/2010 YATES DO KARO K V72.31 Stock Sheets Cleaner Inspector Exam, Routine 05/21/2010 YATES DO KARO K 627.9 Menopausal And Postmenopausal Disorder Unspecified 05/21/2010 YATES DO KARO K 722.10 Displacement Of Lumbar Intervertebral Disc Without Myelopathy 05/21/2010 YATES DO KARO K V72.31 Stock Sheets Cleaner Inspector Exam, Routine 05/21/2010 ZORAIDA ESPAÑA APRN R 627.9 Menopausal And Postmenopausal Disorder Unspecified 05/21/2010 ZORAIDA ESPAÑA APRN R 722.10 Displacement Of Lumbar Intervertebral Disc Without Myelopathy 05/21/2010 ZORAIDA ESPAÑA APRN V72.31 Stock Sheets Cleaner Inspector Exam, Routine 05/21/2010 627.9 Menopausal And Postmenopausal Disorder Unspecified 05/21/2010 722.10 Displacement Of Lumbar Intervertebral Disc Without Myelopathy 05/21/2010 V72.31 Stock Sheets Cleaner Inspector Exam, Routine 05/21/2010 SALLY SUPERVISOR WINTER VALERIE S 627.9 Menopausal And Postmenopausal Disorder Unspecified 05/21/2010 SALLY SUPERVISOR WINTER VALERIE S 722.10 Displacement Of Lumbar Intervertebral Disc Without Myelopathy 05/21/2010 SALLY SUPERVISOR WINTER VALERIE S V72.31 Stock Sheets Cleaner Inspector Exam, Routine 05/21/2010 YATES DO KARO K 627.9 Menopausal And Postmenopausal Disorder Unspecified 05/21/2010 YATES DO KARO K 722.10 Displacement Of Lumbar Intervertebral Disc Without Myelopathy 05/21/2010 YATES DO KARO K V72.31 Stock Sheets Cleaner Inspector Exam, Routine 05/21/2010 SALLY SUPERVISOR WINTER VALERIE S 627.9 Menopausal And Postmenopausal Disorder Unspecified 05/21/2010 SALLY SUPERVISOR WINTER VALERIE S 722.10 Displacement Of Lumbar Intervertebral Disc Without Myelopathy 05/21/2010 SALLY SUPERVISOR WINTER VALERIE S V72.31 Stock Sheets Cleaner Inspector Exam, Routine 05/21/2010 SALLY SUPERVISOR WINTER VALERIE S 627.9 Menopausal And Postmenopausal Disorder Unspecified 05/21/2010 SALLY SUPERVISOR WINTER, VALERIE S 722.10 Displacement Of Lumbar Intervertebral Disc Without Myelopathy 05/21/2010 SALLY SUPERVISOR WINTER VALERIE S V72.31 Stock Sheets Cleaner Inspector Exam, Routine 05/21/2010 MILAN DO KARO K 627.9 Menopausal And Postmenopausal Disorder Unspecified 05/21/2010 YATES DO KARO K 722.10 Displacement Of Lumbar Intervertebral Disc Without Myelopathy 05/21/2010 YATES DO KARO K V72.31 Stock Sheets Cleaner Inspector Exam, Routine 05/21/2010 627.9 Menopausal And Postmenopausal Disorder Unspecified 05/21/2010 722.10 Displacement Of Lumbar Intervertebral Disc Without Myelopathy 05/21/2010 V72.31 Stock Sheets Cleaner Inspector Exam, Routine 05/21/2010 627.9 Menopausal And Postmenopausal Disorder Unspecified 05/21/2010 722.10 Displacement Of Lumbar Intervertebral Disc Without Myelopathy 05/21/2010 V72.31 Stock Sheets Cleaner Inspector Exam, Routine 05/21/2010 627.9 Menopausal And Postmenopausal Disorder Unspecified 05/21/2010 722.10 Displacement Of Lumbar Intervertebral Disc Without Myelopathy 05/21/2010 V72.31 Stock Sheets Cleaner Inspector Exam, Routine 05/21/2010 MICHELLE CAMARGO MD 627.9 Menopausal And Postmenopausal Disorder Unspecified 05/21/2010 MICHELLE CAMARGO MD 722.10 Displacement Of Lumbar Intervertebral Disc Without Myelopathy 05/21/2010 MICHELLE CAMARGO MD V72.31 Stock Sheets Cleaner Inspector Exam, Routine 05/21/2010 SALLY SUPERVISOR WINTER, VALERIE S 627.9 Menopausal And Postmenopausal Disorder Unspecified 05/21/2010 SALLY SUPERVISOR WINTER, VALERIE S 722.10 Displacement Of Lumbar Intervertebral Disc Without Myelopathy 05/21/2010 SALLY SUPERVISOR WINTER, VALERIE S V72.31 Stock Sheets Cleaner Inspector Exam, Routine 05/21/2010 SALLY SUPERVISOR WINTER, VALERIE S 627.9 Menopausal And Postmenopausal Disorder Unspecified 05/21/2010 SALLY SUPERVISOR WINTER, VALERIE S 722.10 Displacement Of Lumbar Intervertebral Disc Without Myelopathy 05/21/2010 SALLY SUPERVISOR WINTER, VALERIE S V72.31 Stock Sheets Cleaner Inspector Exam, Routine 05/21/2010 YATES DO, KARO K 627.9 Menopausal And Postmenopausal Disorder Unspecified 05/21/2010 YATES DO, KARO K 722.10 Displacement Of Lumbar Intervertebral Disc Without Myelopathy 05/21/2010 YATES DO, KARO K V72.31 Stock Sheets Cleaner Inspector Exam, Routine 05/21/2010 SALLY SUPERVISOR WINTER, VALERIE S 627.9 Menopausal And Postmenopausal Disorder Unspecified 05/21/2010 SALLY SUPERVISOR WINTER, VALERIE S 722.10 Displacement Of Lumbar Intervertebral Disc Without Myelopathy 05/21/2010 SALLY SUPERVISOR WINTER, VALERIE S V72.31 Stock Sheets Cleaner Inspector Exam, Routine 05/21/2010 YATES DO, KARO K 627.9 Menopausal And Postmenopausal Disorder Unspecified 05/21/2010 YATES DO, KARO K 722.10 Displacement Of Lumbar Intervertebral Disc Without Myelopathy 05/21/2010 YATES DO, KARO K V72.31 Stock Sheets Cleaner Inspector Exam, Routine 05/21/2010 SALLY SUPERVISOR WINTER, VALERIE S 627.9 Menopausal And Postmenopausal Disorder Unspecified 05/21/2010 SALLY SUPERVISOR WINTER, VALERIE S 722.10 Displacement Of Lumbar Intervertebral Disc Without Myelopathy 05/21/2010 SALLY SUPERVISOR WINTER, VALERIE S V72.31 Stock Sheets Cleaner Inspector Exam, Routine 05/21/2010 SALLY SUPERVISOR WINTER, VALERIE S 627.9 Menopausal And Postmenopausal Disorder Unspecified 05/21/2010 SALLY SUPERVISOR WINTER, VALERIE S 722.10 Displacement Of Lumbar Intervertebral Disc Without Myelopathy 05/21/2010 SALLY SUPERVISOR WINTER, VALERIE S V72.31 Stock Sheets Cleaner Inspector Exam, Routine 05/21/2010 SALLY SUPERVISOR WINTER, VALERIE S 627.9 Menopausal And Postmenopausal Disorder Unspecified 05/21/2010 SALLY SUPERVISOR WINTER, VALERIE S 722.10 Displacement Of Lumbar Intervertebral Disc Without Myelopathy 05/21/2010 SALLY SUPERVISOR WINTER, VALERIE S V72.31 Stock Sheets Cleaner Inspector Exam, Routine 05/21/2010 SALLY SUPERVISOR WINTER, VALERIE S 627.9 Menopausal And Postmenopausal Disorder Unspecified 05/21/2010 SALLY SUPERVISOR WINTER, VALERIE S 722.10 Displacement Of Lumbar Intervertebral Disc Without Myelopathy 05/21/2010 SALLY SUPERVISOR WINTER, VALERIE S V72.31 Stock Sheets Cleaner Inspector Exam, Routine 05/21/2010 SALLY SUPERVISOR WINTER, VALERIE S 627.9 Menopausal And Postmenopausal Disorder Unspecified 05/21/2010 SALLY SUPERVISOR WINTER, VALERIE S 722.10 Displacement Of Lumbar Intervertebral Disc Without Myelopathy 05/21/2010 SALLY SUPERVISOR WINTER, VALERIE S V72.31 Stock Sheets Cleaner Inspector Exam, Routine 05/21/2010 SALLY SUPERVISOR WINTER, VALERIE S 627.9 Menopausal And Postmenopausal Disorder Unspecified 05/21/2010 SALLY SUPERVISOR WINTER, VALERIE S 722.10 Displacement Of Lumbar Intervertebral Disc Without Myelopathy 05/21/2010 SALLY SUPERVISOR WINTER, VALERIE S V72.31 Stock Sheets Cleaner Inspector Exam, Routine 05/21/2010 SALLY SUPERVISOR WINTER, VALERIE S 627.9 Menopausal And Postmenopausal Disorder Unspecified 05/21/2010 SALLY SUPERVISOR WINTER, VALERIE S 722.10 Displacement Of Lumbar Intervertebral Disc Without Myelopathy 05/21/2010 SALLY SUPERVISOR WINTER, VALERIE S V72.31 Stock Sheets Cleaner Inspector Exam, Routine 05/21/2010 KARO YATES DO K 627.9 Menopausal And Postmenopausal Disorder Unspecified 05/21/2010 YATES DO, KARO K 722.10 Displacement Of Lumbar Intervertebral Disc Without Myelopathy 05/21/2010 YATES DO, KARO K V72.31 Stock Sheets Cleaner Inspector Exam, Routine 05/21/2010 SALLY SUPERVISOR WINTER, VALERIE S 627.9 Menopausal And Postmenopausal Disorder Unspecified 05/21/2010 SALLY SUPERVISOR WINTER, VALERIE S 722.10 Displacement Of Lumbar Intervertebral Disc Without Myelopathy 05/21/2010 SALLY SUPERVISOR WINTER, VALERIE S V72.31 Stock Sheets Cleaner Inspector Exam, Routine 05/21/2010 YATES DO, KARO K 627.9 Menopausal And Postmenopausal Disorder Unspecified 05/21/2010 YATES DO, KARO K 722.10 Displacement Of Lumbar Intervertebral Disc Without Myelopathy 05/21/2010 YATES DO, KARO K V72.31 Stock Sheets Cleaner Inspector Exam, Routine 05/21/2010 SALLY SUPERVISOR WINTER, VALERIE S 627.9 Menopausal And Postmenopausal Disorder Unspecified 05/21/2010 SALLY SUPERVISOR WINTER, VALERIE S 722.10 Displacement Of Lumbar Intervertebral Disc Without Myelopathy 05/21/2010 SALLY SUPERVISOR WINTER, VALERIE S V72.31 Stock Sheets Cleaner Inspector Exam, Routine 05/21/2010 SALLY SUPERVISOR WINTER, VALERIE S 627.9 Menopausal And Postmenopausal Disorder Unspecified 05/21/2010 SALLY SUPERVISOR WINTER, VALERIE S 722.10 Displacement Of Lumbar Intervertebral Disc Without Myelopathy 05/21/2010 SALLY SUPERVISOR WINTER, VALERIE S V72.31 Stock Sheets Cleaner Inspector Exam, Routine 05/21/2010 SALLY SUPERVISOR WINTER, VALERIE S 627.9 Menopausal And Postmenopausal Disorder Unspecified 05/21/2010 SALLY SUPERVISOR WINTER, VALERIE S 722.10 Displacement Of Lumbar Intervertebral Disc Without Myelopathy 05/21/2010 SALLY SUPERVISOR WINTER, VALERIE S V72.31 Stock Sheets Cleaner Inspector Exam, Routine 05/21/2010 YATES DO, KARO K 627.9 Menopausal And Postmenopausal Disorder Unspecified 05/21/2010 YATES DO, KARO K 722.10 Displacement Of Lumbar Intervertebral Disc Without Myelopathy 05/21/2010 YATES DO, KARO K V72.31 Stock Sheets Cleaner Inspector Exam, Routine 05/21/2010 SALLY SUPERVISOR WINTER, VALERIE S 627.9 Menopausal And Postmenopausal Disorder Unspecified 05/21/2010 VALERIE ZAVALA APRN S 722.10 Displacement Of Lumbar Intervertebral Disc Without Myelopathy 05/21/2010 ADRIAN ZAVALA APRNA S V72.31 Stock Sheets Cleaner Inspector Exam, Routine 06/23/2010 MILAN RAMIREZ KARO K [...] Other Slipping Tripping Or Stumbling 10/13/2010 ZORAIDA SEPAÑA APRN 719.46 Knee Pain 10/13/2010 ZORAIDA ESPAÑA APRN E885.9 Accidental Fall From Other Slipping Tripping Or Stumbling 10/13/2010 719.46 Knee Pain 10/13/2010 E885.9 Accidental Fall From Other Slipping Tripping Or Stumbling 10/13/2010 SALLY SUPERVISOR WINTER, VALERIE S 719.46 Knee Pain 10/13/2010 SALLY SUPERVISOR WINTERSERINAVALERIE S E885.9 Accidental Fall From Other Slipping Tripping Or Stumbling 10/13/2010 YATES DOHALEYA K 719.46 Knee Pain 10/13/2010 YATES DO KARO K E885.9 Accidental Fall From Other Slipping Tripping Or Stumbling 10/13/2010 SALLY SUPERVISOR WINTER VALERIE S 719.46 Knee Pain 10/13/2010 SALLY SUPERVISOR WINTERSERINAVALERIE S E885.9 Accidental Fall From Other Slipping Tripping Or Stumbling 10/13/2010 SALLY SUPERVISOR WINTER, VALERIE S 719.46 Knee Pain 10/13/2010 SALLY SUPERVISOR WINTER, VALERIE S E885.9 Accidental Fall From Other [...] Slipping Tripping Or Stumbling 10/13/2010 SALLY SUPERVISOR WINTER, VALERIE S 719.46 Knee Pain 10/13/2010 SERINA ZAVALA APRNNDA S E885.9 Accidental Fall From Other Slipping Tripping Or Stumbling 10/13/2010 YATES DO, KARO K 719.46 Knee Pain 10/13/2010 YATES DO, KARO K E885.9 Accidental Fall From Other Slipping Tripping Or Stumbling 10/13/2010 SALLY SUPERVISOR WINTER, VALERIE S 719.46 Knee Pain 10/13/2010 SALLY SUPERVISOR WINTER, VALERIE S E885.9 Accidental Fall From Other Slipping Tripping Or Stumbling 10/13/2010 YATES DO, KARO K 719.46 Knee Pain 10/13/2010 YATES DO, KARO K E885.9 Accidental Fall From Other Slipping Tripping Or Stumbling 10/13/2010 SALLY SUPERVISOR WINTER, VALERIE S 719.46 Knee Pain 10/13/2010 SALLY SUPERVISOR WINTER, VALERIE S E885.9 Accidental Fall From Other Slipping Tripping Or Stumbling 10/13/2010 SALLY SUPERVISOR WINTER, VALERIE S 719.46 Knee Pain 10/13/2010 SALLY SUPERVISOR WINTER, VALERIE S E885.9 Accidental Fall From Other Slipping Tripping Or Stumbling 10/13/2010 SALLY SUPERVISOR WINTER, VALERIE S 719.46 Knee Pain 10/13/2010 SALLY SUPERVISOR WINTER, VALERIE S E885.9 Accidental Fall From Other Slipping Tripping Or Stumbling 10/13/2010 SALLY SUPERVISOR WINTER, VALERIE S 719.46 Knee Pain 10/13/2010 SALLY SUPERVISOR WINTER, VALERIE S E885.9 Accidental Fall From Other Slipping Tripping Or Stumbling 10/13/2010 SALLY SUPERVISOR WINTER, VALERIE S 719.46 Knee Pain 10/13/2010 SALLY SUPERVISOR WINTER, VALERIE S E885.9 Accidental Fall From Other Slipping Tripping Or Stumbling 10/13/2010 SALLY SUPERVISOR WINTER, VALERIE S 719.46 Knee Pain 10/13/2010 SALLY SUPERVISOR WINTER, VALERIE S E885.9 Accidental Fall From Other Slipping Tripping Or Stumbling 10/13/2010 SALLY SUPERVISOR WINTER, VALERIE S 719.46 Knee Pain 10/13/2010 SALLY SUPERVISOR WINTER, VALERIE S E885.9 Accidental Fall From Other Slipping Tripping Or Stumbling 10/13/2010 YATES DO, KARO K 719.46 Knee Pain 10/13/2010 YATES DO, KARO K E885.9 Accidental Fall From Other Slipping Tripping Or Stumbling 10/13/2010 SALLY SUPERVISOR WINTER VALERIE S 719.46 Knee Pain 10/13/2010 SALLY SUPERVISOR WINTER VALERIE S E885.9 Accidental Fall From Other Slipping Tripping Or Stumbling 10/13/2010 YATES DO KARO K 719.46 Knee Pain 10/13/2010 YATES DO KARO K E885.9 Accidental Fall From Other Slipping Tripping Or Stumbling 10/13/2010 SALLY SUPERVISOR WINTER VALERIE S 719.46 Knee Pain 10/13/2010 SALLY SUPERVISOR WINTER VALERIE S E885.9 Accidental Fall From Other Slipping Tripping Or Stumbling 10/13/2010 SALLY SUPERVISOR WINTER VALERIE S 719.46 Knee Pain 10/13/2010 SALLY SUPERVISOR WINTER VALERIE S E885.9 Accidental Fall From Other Slipping Tripping Or Stumbling 10/13/2010 SALLY SUPERVISOR WINTER VALERIE S 719.46 Knee Pain 10/13/2010 SALLY SUPERVISOR WINTER VALERIE S E885.9 Accidental Fall From Other Slipping Tripping Or Stumbling 10/13/2010 YATES DO KARO K 719.46 Knee Pain 10/13/2010 YATES DO KARO K E885.9 Accidental Fall From Other Slipping Tripping Or Stumbling 10/13/2010 SALLY SUPERVISOR WINTER VALERIE S 719.46 Knee Pain 10/13/2010 SALLY SUPERVISOR WINTER VALERIE S E885.9 Accidental Fall From Other Slipping Tripping Or Stumbling 11/07/2010 Ot 722.52 LUMB/ LUMBOSAC DISC DEGEN 11/07/2010 Ot 724.2 LUMBAGO 11/11/2010 YATES DO KARO K 401.1 HYPERTENSION, BENIGN ESSENTIAL 11/11/2010 YATES DO KARO K 401.1 HYPERTENSION, BENIGN ESSENTIAL 11/11/2010 ZORAIDA ESPAÑA APRN 401.1 HYPERTENSION, BENIGN ESSENTIAL 11/11/2010 401.1 HYPERTENSION, BENIGN ESSENTIAL 11/11/2010 SALLY SUPERVISOR WINTER, VALERIE S 401.1 HYPERTENSION, BENIGN ESSENTIAL 11/11/2010 YATES DO, KARO K 401.1 HYPERTENSION, BENIGN ESSENTIAL 11/11/2010 SALLY SUPERVISOR WINTER, VALERIE S 401.1 HYPERTENSION, BENIGN ESSENTIAL 11/11/2010 SALLY SUPERVISOR WINTER, VALERIE S 401.1 HYPERTENSION, BENIGN ESSENTIAL 11/11/2010 YATES DO, KARO K 401.1 HYPERTENSION, BENIGN ESSENTIAL 11/11/2010 401.1 HYPERTENSION, BENIGN ESSENTIAL 11/11/2010 401.1 HYPERTENSION, BENIGN ESSENTIAL 11/11/2010 401.1 HYPERTENSION, BENIGN ESSENTIAL 11/11/2010 MARY JO ABRAMS, MICHELLE 401.1 HYPERTENSION, BENIGN ESSENTIAL 11/11/2010 SALLY SUPERVISOR WINTER, VALERIE S 401.1 HYPERTENSION, BENIGN ESSENTIAL 11/11/2010 SALLY SUPERVISOR WINTER, VALERIE S 401.1 HYPERTENSION, BENIGN ESSENTIAL 11/11/2010 YATES DO, KARO K 401.1 HYPERTENSION, BENIGN ESSENTIAL 11/11/2010 SALLY SUPERVISOR WINTER, VALERIE S 401.1 HYPERTENSION, BENIGN ESSENTIAL 11/11/2010 YATES DO, KARO K 401.1 HYPERTENSION, BENIGN ESSENTIAL 11/11/2010 SALLY SUPERVISOR WINTER, VALERIE S 401.1 HYPERTENSION, BENIGN ESSENTIAL 11/11/2010 SALLY SUPERVISOR WINTER, VALERIE S 401.1 HYPERTENSION, BENIGN ESSENTIAL 11/11/2010 SALLY SUPERVISOR WINTER, VALERIE S 401.1 HYPERTENSION, BENIGN ESSENTIAL 11/11/2010 SALLY SUPERVISOR WINTER, VALERIE S 401.1 HYPERTENSION, BENIGN ESSENTIAL 11/11/2010 SALLY SUPERVISOR WINTER, VALERIE S 401.1 HYPERTENSION, BENIGN ESSENTIAL 11/11/2010 SALLY SUPERVISOR WINTER, VALERIE S 401.1 HYPERTENSION, BENIGN ESSENTIAL 11/11/2010 SALLY SUPERVISOR WINTER, VALERIE S 401.1 HYPERTENSION, BENIGN ESSENTIAL 11/11/2010 YATES DO, KARO K 401.1 HYPERTENSION, BENIGN ESSENTIAL 11/11/2010 SALLY SUPERVISOR WINTER, VALERIE S 401.1 HYPERTENSION, BENIGN ESSENTIAL 11/11/2010 YATES DO, KARO K 401.1 HYPERTENSION, BENIGN ESSENTIAL 11/11/2010 SALLY SUPERVISOR WINTER, VALERIE S 401.1 HYPERTENSION, BENIGN ESSENTIAL 11/11/2010 SALLY SUPERVISOR WINTER, VALERIE S 401.1 HYPERTENSION, BENIGN ESSENTIAL 11/11/2010 [...] Yrs And Above, Im) 03/09/2011 SALLY SUPERVISOR WINTER, VALERIE S V04.81 Flu Dx (3 Yrs And Above, Im) 03/09/2011 YATES DO, KARO K V04.81 Flu Dx (3 Yrs And Above, Im) 03/09/2011 SALLY SUPERVISOR WINTER, VALERIE S V04.81 Flu Dx (3 Yrs And Above, Im) 03/09/2011 YATES DO, KARO K V04.81 Flu Dx (3 Yrs And Above, Im) 03/09/2011 SALLY SUPERVISOR WINTER, VALERIE S V04.81 Flu Dx (3 Yrs And Above, Im) 03/09/2011 SALLY SUPERVISOR WINTER, VALERIE S V04.81 Flu Dx (3 Yrs And Above, Im) 03/09/2011 SALLY SUPERVISOR WINTER, VALERIE S V04.81 Flu Dx (3 Yrs And Above, Im) 03/09/2011 SALLY SUPERVISOR WINTER, VALERIE S V04.81 Flu Dx (3 Yrs And Above, Im) 03/09/2011 SALLY SUPERVISOR WINTER, VALERIE S V04.81 Flu Dx (3 Yrs And Above, Im) 03/09/2011 SALLY SUPERVISOR WINTER, VALERIE S V04.81 Flu Dx (3 Yrs And Above, Im) 03/09/2011 SALLY SUPERVISOR WINTER, VALERIE S V04.81 Flu Dx (3 Yrs And Above, Im) 03/09/2011 YATES DO, KARO K V04.81 Flu Dx (3 Yrs And Above, Im) 03/09/2011 SALLY SUPERVISOR WINTER, VALERIE S V04.81 Flu Dx (3 Yrs And Above, Im) 03/09/2011 YATES DO, KARO K V04.81 Flu Dx (3 Yrs And Above, Im) 03/09/2011 SALLY SUPERVISOR WINTER, VALERIE S V04.81 Flu Dx (3 Yrs And Above, Im) 03/09/2011 SALLY SUPERVISOR WINTER, VALERIE S V04.81 Flu Dx (3 Yrs And Above, Im) 03/09/2011 SALLY SUPERVISOR WINTER, VALERIE S V04.81 Flu Dx (3 Yrs And Above, Im) 03/09/2011 YATES DO, KARO K V04.81 Flu Dx (3 Yrs And Above, Im) 03/09/2011 SALLY SUPERVISOR WINTER, VALERIE S V04.81 Flu Dx (3 Yrs And Above, Im) 03/14/2011 YATES DO, KARO K 625.9 Pelvic Pain 03/14/2011 YATES DO, KARO K 791.0 Proteinuria 03/14/2011 YATES DO, KARO K 625.9 Pelvic Pain 03/14/2011 YATES DO, KARO K 791.0 Proteinuria 03/14/2011 ESPAÑA SUPERVISOR WINTER, ZORAIDA R 625.9 Pelvic Pain 03/14/2011 ESPAÑA SUPERVISOR WINTER, ZORAIDA R 791.0 Proteinuria 03/14/2011 625.9 Pelvic Pain 03/14/2011 791.0 Proteinuria 03/14/2011 SALLY SUPERVISOR WINTER, VALERIE S 625.9 Pelvic Pain 03/14/2011 SALYL SUPERVISOR WINTER, VALERIE S 791.0 Proteinuria 03/14/2011 YATES DO, KARO K 625.9 Pelvic Pain 03/14/2011 YATES DO, KARO K 791.0 Proteinuria 03/14/2011 SALLY SUPERVISOR WINTER, VALERIE S 625.9 Pelvic Pain 03/14/2011 SALLY SUPERVISOR WINTER, VALERIE S 791.0 Proteinuria 03/14/2011 SALLY SUPERVISOR WINTER, VALERIE S 625.9 Pelvic Pain 03/14/2011 SALLY SUPERVISOR WINTER, VALERIE S 791.0 Proteinuria 03/14/2011 YATES DO, KARO K 625.9 Pelvic Pain 03/14/2011 YATES DO, KARO K 791.0 Proteinuria 03/14/2011 625.9 Pelvic Pain 03/14/2011 791.0 Proteinuria 03/14/2011 625.9 Pelvic Pain 03/14/2011 791.0 Proteinuria 03/14/2011 625.9 Pelvic Pain 03/14/2011 791.0 Proteinuria 03/14/2011 MICHELLE CAMARGO MD 625.9 Pelvic Pain 03/14/2011 MICHELLE CAMARGO MD 791.0 Proteinuria 03/14/2011 SALLY SUPERVISOR WINTER, VALERIE S 625.9 Pelvic Pain 03/14/2011 SALLY SUPERVISOR WINTER, VALERIE S 791.0 Proteinuria 03/14/2011 SALLY SUPERVISOR WINTER, VALERIE S 625.9 Pelvic Pain 03/14/2011 SALLY SUPERVISOR WINTER, VALERIE S 791.0 Proteinuria 03/14/2011 YATES DO, KARO K 625.9 Pelvic Pain 03/14/2011 YATES DO, KARO K 791.0 Proteinuria 03/14/2011 SALLY SUPERVISOR WINTER, VALERIE S 625.9 Pelvic Pain 03/14/2011 SALLY SUPERVISOR WINTER, VALERIE S 791.0 Proteinuria 03/14/2011 YATES DO, KARO K 625.9 Pelvic Pain 03/14/2011 YATES DO, KARO K 791.0 Proteinuria 03/14/2011 SALLY SUPERVISOR WINTER, VALERIE S 625.9 Pelvic Pain 03/14/2011 SALLY SUPERVISOR WINTER, VALERIE S 791.0 Proteinuria 03/14/2011 SALLY SUPERVISOR WINTER, VALERIE S 625.9 Pelvic Pain 03/14/2011 SALLY SUPERVISOR WINTER, VALERIE S 791.0 Proteinuria 03/14/2011 SALLY SUPERVISOR WINTER, VALERIE S 625.9 Pelvic Pain 03/14/2011 SALLY SUPERVISOR WINTER, VALERIE S 791.0 Proteinuria 03/14/2011 SALLY SUPERVISOR WINTER, VALERIE S 625.9 Pelvic Pain 03/14/2011 SALLY SUPERVISOR WINTER, VALERIE S 791.0 Proteinuria 03/14/2011 SALLY SUPERVISOR WINTER, VALERIE S 625.9 Pelvic Pain 03/14/2011 SALLY SUPERVISOR WINTER, VALERIE S 791.0 Proteinuria 03/14/2011 SALLY SUPERVISOR WINTER, VALERIE S 625.9 Pelvic Pain 03/14/2011 SALLY SUPERVISOR WINTER, VALERIE S 791.0 Proteinuria 03/14/2011 SALLY SUPERVISOR WINTER, VALERIE S 625.9 Pelvic Pain 03/14/2011 SALLY SUPERVISOR WINTER, VALERIE S 791.0 Proteinuria 03/14/2011 YATES DO, KARO K 625.9 Pelvic Pain 03/14/2011 YATES DO, KARO K 791.0 Proteinuria 03/14/2011 SALLY SUPERVISOR WINTER, VALERIE S 625.9 Pelvic Pain 03/14/2011 SALLY SUPERVISOR WINTER, VALERIE S 791.0 Proteinuria 03/14/2011 YATES DO, KARO K 625.9 Pelvic Pain 03/14/2011 YATES DO, KARO K 791.0 Proteinuria 03/14/2011 SALLY SUPERVISOR WINTER, VALERIE S 625.9 Pelvic Pain 03/14/2011 SALLY SUPERVISOR WINTER, VALERIE S 791.0 Proteinuria 03/14/2011 SALLY SUPERVISOR WINTER, VALERIE S 625.9 Pelvic Pain 03/14/2011 SALLY SUPERVISOR WINTER, VALERIE S 791.0 Proteinuria 03/14/2011 SALLY SUPERVISOR WINTER, VALERIE S 625.9 Pelvic Pain 03/14/2011 SALLY SUPERVISOR WINTER, VALERIE S 791.0 Proteinuria 03/14/2011 YATES DO, KARO K 625.9 Pelvic Pain 03/14/2011 YATES DO, KARO K 791.0 Proteinuria 03/14/2011 SALLY SUPERVISOR WINTER, VALERIE S 625.9 Pelvic Pain 03/14/2011 SALLY SUPERVISOR WINTER, VALERIE S 791.0 Proteinuria 04/26/2011 Ot 614.6 [...] 789.07 ABDOMINAL PAIN GENERALIZED 05/20/2011 SALLY SUPERVISOR WINTER, VALERIE S 300.02 AN GEN ANXIETY 05/20/2011 [...] 300.02 AN GEN ANXIETY 05/20/2011 YATES DO, KRAO K 789.07 ABDOMINAL PAIN GENERALIZED 05/20/2011 SERINA [...] 300.02 AN GEN ANXIETY 05/20/2011 SALLY SUPERVISOR WINTER, VALERIE S 789.07 ABDOMINAL PAIN GENERALIZED 05/20/2011 SALLY SUPERVISOR WINTER, VALERIE S 300.02 AN GEN ANXIETY 05/20/2011 SALLY SUPERVISOR WINTER, VALERIE S 789.07 ABDOMINAL PAIN GENERALIZED 05/20/2011 SALLY SUPERVISOR WINTER, VALERIE S 300.02 AN GEN ANXIETY 05/20/2011 SALLY SUPERVISOR WINTER, VALERIE S 789.07 ABDOMINAL PAIN GENERALIZED 05/20/2011 SALLY PERSAUDN VALERIE S 300.02 AN GEN ANXIETY 05/20/2011 SALLY SUPERVISOR WINTER, VALERIE S 789.07 ABDOMINAL PAIN GENERALIZED 05/20/2011 YATES DO, KARO K 300.02 AN GEN ANXIETY 05/20/2011 YATES DO, KARO K 789.07 ABDOMINAL PAIN GENERALIZED 05/20/2011 SALLY PERSAUDN VALERIE S 300.02 AN GEN ANXIETY 05/20/2011 SALLY SUPERVISOR WINTER VALERIE S 789.07 ABDOMINAL PAIN GENERALIZED 05/20/2011 YATES DO, KARO K 300.02 AN GEN ANXIETY 05/20/2011 YATES DO, KARO K 789.07 ABDOMINAL PAIN GENERALIZED 05/20/2011 SALLY PERSAUDN, VALERIE S 300.02 AN GEN ANXIETY 05/20/2011 SALLYMARTY PERSAUDN, VALERIE S 789.07 ABDOMINAL PAIN GENERALIZED 05/20/2011 SALLYMARTY PERSAUDN VALERIE S 300.02 AN GEN ANXIETY 05/20/2011 SALLY SUPERVISOR WINTER VALERIE S 789.07 ABDOMINAL PAIN GENERALIZED 05/20/2011 SALLY SUPERVISOR WINTER VALERIE S 300.02 AN GEN ANXIETY 05/20/2011 SALLY PERSAUDN VALERIE S 789.07 ABDOMINAL PAIN GENERALIZED 05/20/2011 YATES DO, KARO K 300.02 AN GEN ANXIETY 05/20/2011 YATES DO, KARO K 789.07 ABDOMINAL PAIN GENERALIZED 05/20/2011 SALLY PERSAUDN VALERIE S 300.02 AN GEN ANXIETY 05/20/2011 SALLY SUPERVISOR WINTER, VALERIE S 789.07 ABDOMINAL PAIN GENERALIZED 06/09/2011 YATES DO, KARO K 796.2 Elevated Blood Pressure Reading Without Diagnosis Of Hypertension 06/09/2011 YATES DO, KARO K 796.2 Elevated Blood Pressure Reading Without Diagnosis Of Hypertension 06/09/2011 TACO RIVERA ZORAIDA R 796.2 Elevated Blood Pressure Reading Without Diagnosis Of Hypertension 06/09/2011 796.2 Elevated Blood Pressure Reading Without Diagnosis Of Hypertension 06/09/2011 SALLY SUPERVISOR WINTER, VALERIE S 796.2 Elevated Blood Pressure Reading Without Diagnosis Of Hypertension 06/09/2011 YATES DO KARO K 796.2 Elevated Blood Pressure Reading Without Diagnosis Of Hypertension 06/09/2011 SALLY SUPERVISOR WINTER, VALERIE S 796.2 Elevated Blood Pressure Reading Without Diagnosis Of Hypertension 06/09/2011 SALLY SUPERVISOR WINTER, VALERIE S 796.2 Elevated Blood Pressure Reading [...] Without Diagnosis Of Hypertension 06/09/2011 SALLY SUPERVISOR WINTER, VALERIE S 796.2 Elevated Blood Pressure Reading Without Diagnosis Of Hypertension 06/09/2011 SALLY SUPERVISOR WINTER, VALERIE S 796.2 Elevated Blood Pressure Reading Without Diagnosis Of Hypertension 06/09/2011 YATES DO KARO K 796.2 Elevated Blood Pressure Reading Without Diagnosis Of Hypertension 06/09/2011 SALLY SUPERVISOR WINTER, VALERIE S 796.2 Elevated Blood Pressure Reading Without Diagnosis Of Hypertension 06/09/2011 MILAN RAMIREZ KARO K 796.2 Elevated Blood Pressure Reading Without Diagnosis Of Hypertension 06/09/2011 SALLY SUPERVISOR WINTER, VALERIE S 796.2 Elevated Blood Pressure Reading Without Diagnosis Of Hypertension 06/09/2011 SALLY SUPERVISOR WINTER, VALERIE S 796.2 Elevated Blood Pressure Reading Without Diagnosis Of Hypertension 06/09/2011 SALLY SUPERVISOR WINTER, VALERIE S 796.2 Elevated Blood Pressure Reading Without Diagnosis Of Hypertension 06/09/2011 SALLY SUPERVISOR WINTER, VALERIE S 796.2 Elevated Blood Pressure Reading Without Diagnosis Of Hypertension 06/09/2011 SALLY SUPERVISOR WINTER, VALERIE S 796.2 Elevated Blood Pressure Reading [...] 338.4 CHRONIC PAIN SYNDROME 07/12/2011 SALLY SUPERVISOR WINTER, VALERIE S 338.4 CHRONIC PAIN SYNDROME 07/12/2011 YATES DO, KARO K 338.4 CHRONIC PAIN SYNDROME 07/12/2011 SALLY SUPERVISOR WINTER, VALERIE S 338.4 CHRONIC PAIN SYNDROME 07/12/2011 SALLY SUPERVISOR WINTER, VALERIE S 338.4 CHRONIC PAIN SYNDROME 07/12/2011 YATES DO, KARO K 338.4 CHRONIC PAIN SYNDROME 07/12/2011 338.4 CHRONIC PAIN SYNDROME 07/12/2011 338.4 CHRONIC PAIN SYNDROME 07/12/2011 338.4 CHRONIC PAIN SYNDROME 07/12/2011 MARY JO ABRAMS, MICHELLE 338.4 CHRONIC PAIN SYNDROME 07/12/2011 SALLY SUPERVISOR WINTER, VALERIE S 338.4 CHRONIC PAIN SYNDROME 07/12/2011 SALLY SUPERVISOR WINTER, VALERIE S 338.4 CHRONIC PAIN SYNDROME 07/12/2011 YATES DO, KARO K 338.4 CHRONIC PAIN SYNDROME 07/12/2011 SALLY SUPERVISOR WINTER, VALERIE S 338.4 CHRONIC PAIN SYNDROME 07/12/2011 YATES DO, KARO K 338.4 CHRONIC PAIN SYNDROME 07/12/2011 SALLY SUPERVISOR WINTER, VALERIE S 338.4 CHRONIC PAIN SYNDROME 07/12/2011 SALLY SUPERVISOR WINTER, VALERIE S 338.4 CHRONIC PAIN SYNDROME 07/12/2011 SALLY SUPERVISOR WINTER, VALERIE S 338.4 CHRONIC PAIN SYNDROME 07/12/2011 SALLY SUPERVISOR WINTER, VALERIE S 338.4 CHRONIC PAIN SYNDROME 07/12/2011 SALLY SUPERVISOR WINTER, VALERIE S 338.4 CHRONIC PAIN SYNDROME 07/12/2011 SALLY SUPERVISOR WINTER, VALERIE S 338.4 CHRONIC PAIN SYNDROME 07/12/2011 SALLY SUPERVISOR WINTER, VALERIE S 338.4 CHRONIC PAIN SYNDROME 07/12/2011 YATES DO, KARO K 338.4 CHRONIC PAIN SYNDROME 07/12/2011 SALLY SUPERVISOR WINTER, VALERIE S 338.4 CHRONIC PAIN SYNDROME 07/12/2011 YATES DO, KARO K 338.4 CHRONIC PAIN SYNDROME 07/12/2011 SALLY SUPERVISOR WINTER, VALERIE S 338.4 CHRONIC PAIN SYNDROME 07/12/2011 SALLY SUPERVISOR WINTER, VALERIE S 338.4 CHRONIC PAIN SYNDROME 07/12/2011 SALLY SUPERVISOR WINTER, VALERIE S 338.4 CHRONIC PAIN SYNDROME 07/12/2011 [...] KARO K 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 09/23/2011 SALLY SUPERVISOR WINTER, VALERIE S 735.0 HALLUX VALGUS (ACQUIRED) 09/23/2011 SALLY SUPERVISOR WINTER, VALERIE S 735.4 HAMMER TOE (ACQUIRED) 09/23/2011 SALLY SUPERVISOR WINTER, VALERIE S 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 09/23/2011 SALLY SUPERVISOR WINTER, VALERIE S 735.0 HALLUX VALGUS (ACQUIRED) 09/23/2011 [...] 735.0 HALLUX VALGUS (ACQUIRED) 09/23/2011 SALLY SUPERVISOR WINTER, VALERIE S 735.4 HAMMER TOE (ACQUIRED) 09/23/2011 SALLY SUPERVISOR WINTER, VALERIE S 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 09/23/2011 SALLY SUPERVISOR WINTER, VALERIE S 735.0 HALLUX VALGUS (ACQUIRED) 09/23/2011 SALLY SUPERVISOR WINTER, VALERIE S 735.4 HAMMER TOE (ACQUIRED) 09/23/2011 SALLY SUPERVISOR WINTER, VALERIE S 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 09/23/2011 YATES DO, KARO K 735.0 HALLUX VALGUS (ACQUIRED) 09/23/2011 YATES DO, KARO K 735.4 HAMMER TOE (ACQUIRED) 09/23/2011 YATES DO, KARO K 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 09/23/2011 SALLY SUPERVISOR WINTER, VALERIE S 735.0 HALLUX VALGUS (ACQUIRED) 09/23/2011 SALLY SUPERVISOR WINTER, VALERIE S 735.4 HAMMER TOE (ACQUIRED) 09/23/2011 SALLY SUPERVISOR WINTER, VALERIE S 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 09/23/2011 YATES DO, KARO K 735.0 HALLUX VALGUS (ACQUIRED) 09/23/2011 YATES DO, KARO K 735.4 HAMMER TOE (ACQUIRED) 09/23/2011 YATES DO, KARO K 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 09/23/2011 SALLY SUPERVISOR WINTER, VALERIE S 735.0 HALLUX VALGUS (ACQUIRED) 09/23/2011 SALLY SUPERVISOR WINTER, VALERIE S 735.4 HAMMER TOE (ACQUIRED) 09/23/2011 SALLY SUPERVISOR WINTER, VALERIE S 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 09/23/2011 SALLY SUPERVISOR WINTER, VALERIE S 735.0 HALLUX VALGUS (ACQUIRED) 09/23/2011 SALLY SUPERVISOR WINTER, VALERIE S 735.4 HAMMER TOE (ACQUIRED) 09/23/2011 SALLY SUPERVISOR WINTER, VALERIE S 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 09/23/2011 SALLY SUPERVISOR WINTER, VALERIE S 735.0 HALLUX VALGUS (ACQUIRED) 09/23/2011 SALLY SUPERVISOR WINTER, VALERIE S 735.4 HAMMER TOE (ACQUIRED) 09/23/2011 SALLY SUPERVISOR WINTER, VALERIE S 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 09/23/2011 SALLY SUPERVISOR WINTER, VALERIE S 735.0 HALLUX VALGUS (ACQUIRED) 09/23/2011 SALLY SUPERVISOR WINTER, VALERIE S 735.4 HAMMER TOE (ACQUIRED) 09/23/2011 SALLY SUPERVISOR WINTER, VALERIE S 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 09/23/2011 SALLY SUPERVISOR WINTER, VALERIE S 735.0 HALLUX VALGUS (ACQUIRED) 09/23/2011 SALLY SUPERVISOR WINTER, VALERIE S 735.4 HAMMER TOE (ACQUIRED) 09/23/2011 SALLY SUPERVISOR WINTER, VALERIE S 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 09/23/2011 SALLY SUPERVISOR WINTER, VALERIE S 735.0 HALLUX VALGUS (ACQUIRED) 09/23/2011 SALLY SUPERVISOR WINTER, VALERIE S 735.4 HAMMER TOE (ACQUIRED) 09/23/2011 SALLY SUPERVISOR WINTER, VALERIE S 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 09/23/2011 SALLY SUPERVISOR WINTER, VALERIE S 735.0 HALLUX VALGUS (ACQUIRED) 09/23/2011 SALLY SUPERVISOR WINTER, VALERIE S 735.4 HAMMER TOE (ACQUIRED) 09/23/2011 SALLY SUPERVISOR WINTER, VALERIE S 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 09/23/2011 YATES DO, KARO K 735.0 HALLUX VALGUS (ACQUIRED) 09/23/2011 YATES DO, KARO K 735.4 HAMMER TOE (ACQUIRED) 09/23/2011 YATES DO, KARO K 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 09/23/2011 SALLY SUPERVISOR WINTER, VALERIE S 735.0 HALLUX VALGUS (ACQUIRED) 09/23/2011 SALLY SUPERVISOR WINTER, VALERIE S 735.4 HAMMER TOE (ACQUIRED) 09/23/2011 SALLY SUPERVISOR WINTER, VALERIE S 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 09/23/2011 YATES DO, KARO K 735.0 HALLUX VALGUS (ACQUIRED) 09/23/2011 YATES DO, KARO K 735.4 HAMMER TOE (ACQUIRED) 09/23/2011 YATES DO, KARO K 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 09/23/2011 SALLY SUPERVISOR WINTER, VALERIE S 735.0 HALLUX VALGUS (ACQUIRED) 09/23/2011 SALLY SUPERVISOR WINTER, VALERIE S 735.4 HAMMER TOE (ACQUIRED) 09/23/2011 SALLY SUPERVISOR WINTER, VALERIE S 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 09/23/2011 SALLY SUPERVISOR WINTER, VALERIE S 735.0 HALLUX VALGUS (ACQUIRED) 09/23/2011 SALLY SUPERVISOR WINTER, VALERIE S 735.4 HAMMER TOE (ACQUIRED) 09/23/2011 SALLY SUPERVISOR WINTER, VALERIE S 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 09/23/2011 SALLY SUPERVISOR WINTER, VALERIE S 735.0 HALLUX VALGUS (ACQUIRED) 09/23/2011 SALLY SUPERVISOR WINTER, VALERIE S 735.4 HAMMER TOE (ACQUIRED) 09/23/2011 SALLY SUPERVISOR WINTER, VALERIE S 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 09/23/2011 YATES DO, KARO K 735.0 HALLUX VALGUS (ACQUIRED) 09/23/2011 YATES DO, KARO K 735.4 HAMMER TOE (ACQUIRED) 09/23/2011 YATES DO, KARO K 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 09/23/2011 SALLY SUPERVISOR WINTER, VALERIE S 735.0 HALLUX VALGUS (ACQUIRED) 09/23/2011 SALLY SUPERVISOR WINTER, VALERIE S 735.4 HAMMER TOE (ACQUIRED) 09/23/2011 SALLY SUPERVISOR WINTER, VALERIE S 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 11/18/2011 YATES DO, KARO K 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 11/18/2011 YATES DO, KARO K 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 11/18/2011 ZORAIDA ESPAÑA APRN R 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 11/18/2011 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 11/18/2011 SALLY SUPERVISOR WINTER, VALERIE S 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 11/18/2011 YATES DO, KARO K 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 11/18/2011 SALLY SUPERVISOR WINTER, VALERIE S 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 11/18/2011 SALLY SUPERVISOR WINTER, VALERIE S 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 11/18/2011 YATES DO, KARO K 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 11/18/2011 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 11/18/2011 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 11/18/2011 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 11/18/2011 MICHELLE CAMARGO MD 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 11/18/2011 SALLY SUPERVISOR WINTER, VALERIE S 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 11/18/2011 SALLY SUPERVISOR WINTER, VALERIE S 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 11/18/2011 YATES DO, KARO K 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 11/18/2011 SALLY SUPERVISOR WINTER, VALERIE S 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 11/18/2011 YATES DO, KARO K 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 11/18/2011 SALLY SUPERVISOR WINTER, VALERIE S 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 11/18/2011 SALLY SUPERVISOR WINTER, VALERIE S 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 11/18/2011 SALLY SUPERVISOR WINTER, VALERIE S 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 11/18/2011 SALLY SUPERVISOR WINTER, VALERIE S 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 11/18/2011 SALLY SUPERVISOR WINTER, VALERIE S 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 11/18/2011 SALLY SUPERVISOR WINTER, VALERIE S 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 11/18/2011 SALLY SUPERVISOR WINTER, VALERIE S 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 11/18/2011 YATES DO, KARO K 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 01/20/2012 YATES DO, KARO K 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 01/20/2012 SALLY SUPERVISOR WINTER, VALERIE S 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 01/20/2012 YATES DO, KARO K 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 01/20/2012 SALLY RIVERA VALERIE S 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 01/20/2012 SALLY SUPERVISOR WINTER, VALERIE S 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 01/20/2012 SALLY SUPERVISOR WINTER, VALERIE S 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 01/20/2012 SALLY SUPERVISOR WINTER, VALERIE S 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 01/20/2012 SALLY SUPERVISOR WINTER, VALERIE S 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 01/20/2012 SALLY SUPERVISOR WINTER, VALERIE S 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 01/20/2012 SALLY SUPERVISOR WINTER, VALERIE S 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 01/20/2012 YATES DO, KARO K 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 01/20/2012 SALLY SUPERVISOR WINTER, VALERIE S 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 01/20/2012 YATES DO, KARO K 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 01/20/2012 SALLY SUPERVISOR WINTER, VALERIE S 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 01/20/2012 SALLY SUPERVISOR WINTER, VALERIE S 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 01/20/2012 SALLY SUPERVISOR WINTER, VALERIE S 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 01/20/2012 YATES DO, KARO K 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 01/20/2012 SALLY SUPERVISOR WINTER, VALERIE S 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 02/09/2012 [...] A HEALTH CARE FACILITY 02/14/2012 SALLY SUPERVISOR WINTERADRIAN TalleyA S V70.0 ROUTINE GENERAL MEDICAL EXAMINATION AT A HEALTH CARE FACILITY 02/14/2012 SALLY SUPERVISOR WINTERSERINA TalleyNDA S V70.0 ROUTINE GENERAL MEDICAL EXAMINATION AT A HEALTH CARE FACILITY 02/14/2012 SERINA ZAVALA APRNNDA S V70.0 ROUTINE GENERAL MEDICAL EXAMINATION AT A HEALTH CARE FACILITY 02/14/2012 SERINA ZAVALA APRNNDA S V70.0 ROUTINE GENERAL MEDICAL EXAMINATION AT A HEALTH CARE FACILITY 02/14/2012 SALLY SUPERVISOR WINTERSERINA TalleyNDA S V70.0 ROUTINE GENERAL MEDICAL EXAMINATION AT A HEALTH CARE FACILITY 02/14/2012 ADRIAN ZAVALA APRNA S V70.0 ROUTINE GENERAL MEDICAL EXAMINATION AT A HEALTH CARE FACILITY 02/14/2012 SERINA ZAVLAA APRNNDA S V70.0 ROUTINE GENERAL MEDICAL EXAMINATION [...] 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 03/16/2012 ESPAÑA SUPERVISOR WINTER, ZORAIDA R 719.07 EDEMA FOOT 03/16/2012 ESPAÑA SUPERVISOR WINTER, ZORAIDA R 726.90 CAPSULITIS 03/16/2012 ESPAÑA SUPERVISOR WINTER, ZORAIDA R 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 03/16/2012 719.07 EDEMA FOOT 03/16/2012 726.90 CAPSULITIS 03/16/2012 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 03/16/2012 SALLY SUPERVISOR WINTER, VALERIE S 719.07 EDEMA FOOT 03/16/2012 SALLY SUPERVISOR WINTER, VALERIE S 726.90 CAPSULITIS 03/16/2012 SALLY SUPERVISOR WINTER, VALERIE S 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 03/16/2012 YATES DO, KARO K 719.07 EDEMA FOOT 03/16/2012 YATES DO, KARO K 726.90 CAPSULITIS 03/16/2012 YATES DO, KARO K 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 03/16/2012 SALLY SUPERVISOR WINTER, VALERIE S 719.07 EDEMA FOOT 03/16/2012 SALLY SUPERVISOR WINTER, VALERIE S 726.90 CAPSULITIS 03/16/2012 SALLY SUPERVISOR WINTER, VALERIE S 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 03/16/2012 SALLY SUPERVISOR WINTER, VALERIE S 719.07 EDEMA FOOT 03/16/2012 SALLY SUPERVISOR WINTER, VALERIE S 726.90 CAPSULITIS 03/16/2012 SALLY SUPERVISOR WINTER, VALERIE S 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 03/16/2012 [...] VALERIE S 726.90 CAPSULITIS 03/16/2012 SALLY SUPERVISOR WINTER, VALERIE S 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 03/16/2012 SALLY SUPERVISOR WINTER, VALERIE S 719.07 EDEMA FOOT 03/16/2012 SALLY RIVERA, VALERIE S 726.90 CAPSULITIS 03/16/2012 SALLY SUPERVISOR WINTER, VALERIE S 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 03/16/2012 [...] 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 03/16/2012 SALLY SUPERVISOR WINTER, VALERIE S 719.07 EDEMA FOOT 03/16/2012 SALLY SUPERVISOR WINTER, VALERIE S 726.90 CAPSULITIS 03/16/2012 SALLY SUPERVISOR WINTER, VALERIE S 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 03/16/2012 SALLY SUPERVISOR WINTER, VALERIE S 719.07 EDEMA FOOT 03/16/2012 SALLY SUPERVISOR WINTER, VALERIE S 726.90 CAPSULITIS 03/16/2012 SALLY SUPERVISOR WINTER, VALERIE S 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 03/16/2012 SALLY SUPERVISOR WINTER, VALERIE S 719.07 EDEMA FOOT 03/16/2012 SALLY SUPERVISOR WINTER, VALERIE S 726.90 CAPSULITIS 03/16/2012 SALLY SUPERVISOR WINTER, VALERIE S 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 03/16/2012 SALLY SUPERVISOR WINTER, VALERIE S 719.07 EDEMA FOOT 03/16/2012 SALLY SUPERVISOR WINTER, VALERIE S 726.90 CAPSULITIS 03/16/2012 SALLY SUPERVISOR WINTER, VALERIE S 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 03/16/2012 SALLY SUPERVISOR WINTER, VALERIE S 719.07 EDEMA FOOT 03/16/2012 SALLY SUPERVISOR WINTER, VALERIE S 726.90 CAPSULITIS 03/16/2012 SALLY SUPERVISOR WINTER, VALERIE S 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 03/16/2012 SALLY SUPERVISOR WINTER, VALERIE S 719.07 EDEMA FOOT 03/16/2012 SALLY SUPERVISOR WINTER, VALERIE S 726.90 CAPSULITIS 03/16/2012 SALLY SUPERVISOR WINTER, VALERIE S 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 03/16/2012 SALLY SUPERVISOR WINTER, VALERIE S 719.07 EDEMA FOOT 03/16/2012 SALLY SUPERVISOR WINTER, VALERIE S 726.90 CAPSULITIS 03/16/2012 SALLY SUPERVISOR WINTER, VALERIE S 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 03/16/2012 YATES DO, KARO K 719.07 EDEMA FOOT 03/16/2012 YATES DO, KARO K 726.90 CAPSULITIS 03/16/2012 YATES DO, KARO K 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 03/16/2012 SALLY SUPERVISOR WINTER, VALERIE S 719.07 EDEMA FOOT 03/16/2012 SALLY SUPERVISOR WINTER, VALERIE S 726.90 CAPSULITIS 03/16/2012 SALLY SUPERVISOR WINTER, VALERIE S 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 03/16/2012 YATES DO, KARO K 719.07 EDEMA FOOT 03/16/2012 YATES DO, KARO K 726.90 CAPSULITIS 03/16/2012 YATES DO, KARO K 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 03/16/2012 SALLY SUPERVISOR WINTER, VALERIE S 719.07 EDEMA FOOT 03/16/2012 SALLY SUPERVISOR WINTER, VALERIE S 726.90 CAPSULITIS 03/16/2012 SALLY SUPERVISOR WINTER, VALERIE S 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 03/16/2012 SALLY SUPERVISOR WINTER, VALERIE S 719.07 EDEMA FOOT 03/16/2012 SALLY SUPERVISOR WINTER, VALERIE S 726.90 CAPSULITIS 03/16/2012 SALLY SUPERVISOR WINTER, VALERIE S 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 03/16/2012 SALLY SUPERVISOR WINTER, VALERIE S 719.07 EDEMA FOOT 03/16/2012 SALLY SUPERVISOR WINTER, VALERIE S 726.90 CAPSULITIS 03/16/2012 SALLY SUPERVISOR WINTER, VALERIE S 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 03/16/2012 YATES DO, KARO K 719.07 EDEMA FOOT 03/16/2012 YATES DO, KARO K 726.90 CAPSULITIS 03/16/2012 YATES DO, KARO K 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 03/16/2012 SALLY SUPERVISOR WINTER, VALERIE S 719.07 EDEMA FOOT 03/16/2012 SALLY SUPERVISOR WINTER, VALERIE S 726.90 CAPSULITIS 03/16/2012 SALLY SUPERVISOR WINTER, VALERIE S 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 03/30/2012 YATES DO KARO K V45.89 POSTSURGICAL STATUS 03/30/2012 YATES DO KARO K V45.89 POSTSURGICAL STATUS 03/30/2012 ESPAÑA SUPERVISOR WINTER, ZORAIDA R V45.89 POSTSURGICAL STATUS 03/30/2012 V45.89 POSTSURGICAL STATUS 03/30/2012 SALLY SUPERVISOR WINTER, VALERIE S V45.89 POSTSURGICAL STATUS 03/30/2012 YATES DO KARO K V45.89 POSTSURGICAL STATUS 03/30/2012 SALLY SUPERVISOR WINTER, VALERIE S V45.89 POSTSURGICAL STATUS 03/30/2012 SALLY SUPERVISOR WINTER, VALERIE S V45.89 POSTSURGICAL STATUS 03/30/2012 YATES DO KARO K V45.89 POSTSURGICAL STATUS 03/30/2012 V45.89 POSTSURGICAL STATUS 03/30/2012 V45.89 POSTSURGICAL STATUS 03/30/2012 V45.89 POSTSURGICAL STATUS 03/30/2012 MICHELLE CAMARGO MD V45.89 POSTSURGICAL STATUS 03/30/2012 SALLY SUPERVISOR WINTER, VALERIE S V45.89 POSTSURGICAL STATUS 03/30/2012 SALLY SUPERVISOR WINTER, VALERIE S V45.89 POSTSURGICAL STATUS 03/30/2012 YATES DO KARO K V45.89 POSTSURGICAL STATUS 03/30/2012 SALLY SUPERVISOR WINTER, VALERIE S V45.89 POSTSURGICAL STATUS 03/30/2012 YATES DO AKRO K V45.89 POSTSURGICAL STATUS 03/30/2012 SALLY SUPERVISOR WINTER, VALERIE S V45.89 POSTSURGICAL STATUS 03/30/2012 SALLY SUPERVISOR WINTER, VALERIE S V45.89 POSTSURGICAL STATUS 03/30/2012 SALLY SUPERVISOR WINTER, VALERIE S V45.89 POSTSURGICAL STATUS 03/30/2012 SALLY SUPERVISOR WINTER, VALERIE S V45.89 POSTSURGICAL STATUS 03/30/2012 SALLY SUPERVISOR WINTER, VALERIE S V45.89 POSTSURGICAL STATUS 03/30/2012 SALLY SUPERVISOR WINTER, VALERIE S V45.89 POSTSURGICAL STATUS 03/30/2012 SALLY SUPERVISOR WINTER, VALERIE S V45.89 POSTSURGICAL STATUS 03/30/2012 YATES DO KARO K V45.89 POSTSURGICAL STATUS 03/30/2012 SALLY SUPERVISOR WINTER, VALERIE S V45.89 POSTSURGICAL STATUS 03/30/2012 YATES DO, KARO K V45.89 POSTSURGICAL STATUS 03/30/2012 SALLY SUPERVISOR WINTER, VALERIE S V45.89 POSTSURGICAL STATUS 03/30/2012 SALLY SUPERVISOR WINTER, VALERIE S V45.89 POSTSURGICAL STATUS 03/30/2012 SALLY SUPERVISOR WINTER, VALERIE S V45.89 POSTSURGICAL STATUS 03/30/2012 YATES DO, KARO K V45.89 POSTSURGICAL STATUS 03/30/2012 SALLY SUPERVISOR WINTER, VALERIE S V45.89 POSTSURGICAL STATUS 05/29/2012 TACO SUPERVISOR WINTER, ZORAIDA R 786.2 cough 05/29/2012 786.2 cough 05/29/2012 SALLY SUPERVISOR WINTER, VALERIE S 786.2 cough 05/29/2012 YATES DO, AKRO K 786.2 cough 05/29/2012 SALLY SUPERVISOR WINTER, VALERIE S 786.2 cough 05/29/2012 SALLY SUPERVISOR WINTER, VALERIE S 786.2 cough 05/29/2012 YATES DO KARO K 786.2 cough 05/29/2012 786.2 cough 05/29/2012 786.2 COUGH 05/29/2012 786.2 COUGH 05/29/2012 MICHELLE CAMARGO MD 786.2 COUGH 05/29/2012 SALLY SUPERVISOR WINTER, VALERIE S 786.2 COUGH 05/29/2012 SALLY SUPERVISOR WINTER, VALERIE S 786.2 COUGH 05/29/2012 YATES DO, KARO K 786.2 COUGH 05/29/2012 SALLY SUPERVISOR WINTER, VALERIE S 786.2 COUGH 05/29/2012 YATES DO, KARO K 786.2 COUGH 05/29/2012 SALLY SUPERVISOR WINTER, VALERIE S 786.2 COUGH 05/29/2012 SALLY SUPERVISOR WINTER, VALERIE S 786.2 COUGH 05/29/2012 SALLY SUPERVISOR WINTER, VALERIE S 786.2 COUGH 05/29/2012 SALLY SUPERVISOR WINTER, VALERIE S 786.2 COUGH 05/29/2012 SALLY SUPERVISOR WINTER, VALERIE S 786.2 COUGH 05/29/2012 SALLY SUPERVISOR WINTER, VALERIE S 786.2 COUGH 05/29/2012 SALLY SUPERVISOR WINTER, VALERIE S 786.2 COUGH 05/29/2012 YATES DO, KARO K 786.2 COUGH 05/29/2012 SALLY SUPERVISOR WINTER, VALERIE S 786.2 COUGH 05/29/2012 YATES DO, KARO K 786.2 COUGH 05/29/2012 SALLY SUPERVISOR WINTER, VALERIE S 786.2 COUGH 05/29/2012 SALLY SUPERVISOR WINTER, VALERIE S 786.2 COUGH 05/29/2012 SALLY SUPERVISOR WINTER, VALERIE S 786.2 COUGH 05/29/2012 YATES DO, KARO K 786.2 COUGH 05/29/2012 SALLY SUPERVISOR WINTER, VALERIE S 786.2 COUGH 06/05/2012 461.9 SINUSITIS ACUTE 06/05/2012 SALLY SUPERVISOR WINTER, AVLERIE S 461.9 SINUSITIS ACUTE 06/05/2012 YATES DO, KARO K 461.9 SINUSITIS ACUTE 06/05/2012 SALLY SUPERVISOR WINTER, VALERIE S 461.9 SINUSITIS ACUTE 06/05/2012 SALLY SUPERVISOR WINTER, VALERIE S 461.9 SINUSITIS ACUTE 06/05/2012 YATES DO KARO K 461.9 SINUSITIS ACUTE 06/05/2012 461.9 SINUSITIS ACUTE 06/05/2012 461.9 SINUSITIS ACUTE 06/05/2012 461.9 SINUSITIS ACUTE 06/05/2012 MICHELLE CAMARGO MD 461.9 SINUSITIS ACUTE 06/05/2012 SALLY SUPERVISOR WINTER, VALERIE S 461.9 SINUSITIS ACUTE 06/05/2012 SALLY SUPERVISOR WINTER, VALERIE S 461.9 SINUSITIS ACUTE 06/05/2012 YATES DO KARO K 461.9 SINUSITIS ACUTE 06/05/2012 SALLY SUPERVISOR WINTER, VALERIE S 461.9 SINUSITIS ACUTE 06/05/2012 YATES DO, KARO K 461.9 SINUSITIS ACUTE 06/05/2012 SALLY SUPERVISOR WINTER, VALERIE S 461.9 SINUSITIS ACUTE 06/05/2012 SALLY SUPERVISOR WINTER, VALERIE S 461.9 SINUSITIS ACUTE 06/05/2012 SALLY SUPERVISOR WINTER, VALERIE S 461.9 SINUSITIS ACUTE 06/05/2012 SALLY SUPERVISOR WINTER, VALERIE S 461.9 SINUSITIS ACUTE 06/05/2012 SALLY SUPERVISOR WINTER, VALERIE S 461.9 SINUSITIS ACUTE 06/05/2012 SALLY SUPERVISOR WINTER, VALERIE S 461.9 SINUSITIS ACUTE 06/05/2012 SALLY SUPERVISOR WINTER, VALERIE S 461.9 SINUSITIS ACUTE 06/05/2012 HALEY YATES DOA K 461.9 SINUSITIS ACUTE 06/05/2012 SALLY SUPERVISOR WINTER, VALERIE S 461.9 SINUSITIS ACUTE 06/05/2012 HALEY YATES DOA K 461.9 SINUSITIS ACUTE 06/05/2012 SALLY SUPERVISOR WINTER, VALERIE S 461.9 SINUSITIS ACUTE 06/05/2012 SALLY SUPERVISOR WINTER, VALERIE S 461.9 SINUSITIS ACUTE 06/05/2012 SALLY SUPERVISOR WINTER, VALERIE S 461.9 SINUSITIS ACUTE 06/05/2012 HALEY YATES DOA K 461.9 SINUSITIS ACUTE 06/05/2012 SALLY SUPERVISOR WINTER, VALERIE S 461.9 SINUSITIS ACUTE 07/04/2012 SALLY SUPERVISOR WINTER, VALERIE S 535.50 UNSPECIFIED GASTRITIS AND GASTRODUODENITIS (WITHOUT HEMORRHAGE) 07/04/2012 SALLY SUPERVISOR WINTER, VALERIE S 535.50 UNSPECIFIED GASTRITIS AND GASTRODUODENITIS (WITHOUT HEMORRHAGE) 07/04/2012 KARO YATES DO 535.50 UNSPECIFIED GASTRITIS AND GASTRODUODENITIS (WITHOUT HEMORRHAGE) 07/04/2012 535.50 UNSPECIFIED GASTRITIS AND GASTRODUODENITIS (WITHOUT HEMORRHAGE) 07/04/2012 535.50 UNSPECIFIED GASTRITIS AND GASTRODUODENITIS (WITHOUT HEMORRHAGE) 07/04/2012 535.50 UNSPECIFIED GASTRITIS AND GASTRODUODENITIS (WITHOUT HEMORRHAGE) 07/04/2012 MICHELLE CAMARGO MD 535.50 UNSPECIFIED GASTRITIS AND GASTRODUODENITIS (WITHOUT HEMORRHAGE) 07/04/2012 SALLY SUPERVISOR WINTER, VALERIE S 535.50 UNSPECIFIED GASTRITIS AND GASTRODUODENITIS (WITHOUT HEMORRHAGE) 07/04/2012 SALLY SUPERVISOR WINTER, VALERIE S 535.50 UNSPECIFIED GASTRITIS AND GASTRODUODENITIS (WITHOUT HEMORRHAGE) 07/04/2012 KARO YATES DO 535.50 UNSPECIFIED GASTRITIS AND GASTRODUODENITIS (WITHOUT HEMORRHAGE) 07/04/2012 SALLY SUPERVISOR WINTER, VALERIE S 535.50 UNSPECIFIED GASTRITIS AND GASTRODUODENITIS (WITHOUT HEMORRHAGE) 07/04/2012 YATES DO KARO K 535.50 UNSPECIFIED GASTRITIS AND GASTRODUODENITIS (WITHOUT HEMORRHAGE) 07/04/2012 SALLY SUPERVISOR WINTER, VALERIE S 535.50 UNSPECIFIED GASTRITIS AND GASTRODUODENITIS (WITHOUT HEMORRHAGE) 07/04/2012 SALLY SUPERVISOR WINTER, VALERIE S 535.50 UNSPECIFIED GASTRITIS AND GASTRODUODENITIS (WITHOUT HEMORRHAGE) 07/04/2012 SALLY SUPERVISOR WINTER, VALERIE S 535.50 UNSPECIFIED GASTRITIS AND GASTRODUODENITIS (WITHOUT HEMORRHAGE) 07/04/2012 SALLY SUPERVISOR WINTER, VALERIE S 535.50 UNSPECIFIED GASTRITIS AND GASTRODUODENITIS (WITHOUT HEMORRHAGE) 07/04/2012 SALLY SUPERVISOR WINTER, VALERIE S 535.50 UNSPECIFIED GASTRITIS AND GASTRODUODENITIS (WITHOUT HEMORRHAGE) 07/04/2012 SALLY SUPERVISOR WINTER, VALERIE S 535.50 UNSPECIFIED GASTRITIS AND GASTRODUODENITIS (WITHOUT HEMORRHAGE) 07/04/2012 SALLY SUPERVISOR WINTER, VALERIE S 535.50 UNSPECIFIED GASTRITIS AND GASTRODUODENITIS (WITHOUT HEMORRHAGE) 07/04/2012 YATES DO KARO K 535.50 UNSPECIFIED GASTRITIS AND GASTRODUODENITIS (WITHOUT HEMORRHAGE) 07/04/2012 SALLY SUPERVISOR WINTER, VALERIE S 535.50 UNSPECIFIED GASTRITIS AND GASTRODUODENITIS (WITHOUT HEMORRHAGE) 07/04/2012 YATES DO KARO K 535.50 UNSPECIFIED GASTRITIS AND GASTRODUODENITIS (WITHOUT HEMORRHAGE) 07/04/2012 SALLY SUPERVISOR WINTER, VALERIE S 535.50 UNSPECIFIED GASTRITIS AND GASTRODUODENITIS (WITHOUT HEMORRHAGE) 07/04/2012 SALLY SUPERVISOR WINTER, VALERIE S 535.50 UNSPECIFIED GASTRITIS AND GASTRODUODENITIS (WITHOUT HEMORRHAGE) 07/04/2012 SALLY SUPERVISOR WINTER, VALERIE S 535.50 UNSPECIFIED GASTRITIS AND GASTRODUODENITIS (WITHOUT HEMORRHAGE) 07/04/2012 YATES DO KARO K 535.50 UNSPECIFIED GASTRITIS AND GASTRODUODENITIS (WITHOUT HEMORRHAGE) 07/04/2012 SALLY SUPERVISOR WINTER, VALERIE S 535.50 UNSPECIFIED GASTRITIS AND GASTRODUODENITIS (WITHOUT HEMORRHAGE) 07/30/2012 SALLY SUPERVISOR WINTER, VALERIE S 788.1 DYSURIA 07/30/2012 YATES DO, KARO K 788.1 DYSURIA 07/30/2012 788.1 DYSURIA 07/30/2012 788.1 DYSURIA 07/30/2012 788.1 DYSURIA 07/30/2012 MICHELLE CAMARGO MD 788.1 DYSURIA 07/30/2012 SALLY SUPERVISOR WINTER, VALERIE S 788.1 DYSURIA 07/30/2012 SALLY SUPERVISOR WINTER, VALERIE S 788.1 DYSURIA 07/30/2012 YATES DO, KARO K 788.1 DYSURIA 07/30/2012 SALLY SUPERVISOR WINTER, VALERIE S 788.1 DYSURIA 07/30/2012 YATES DO, KARO K 788.1 DYSURIA 07/30/2012 SALLY SUPERVISOR WINTER, VALERIE S 788.1 DYSURIA 07/30/2012 SALLY SUPERVISOR WINTER, VALERIE S 788.1 DYSURIA 07/30/2012 SALLY SUPERVISOR WINTER, VALERIE S 788.1 DYSURIA 07/30/2012 SALLY SUPERVISOR WINTER, VALERIE S 788.1 DYSURIA 07/30/2012 SALLY SUPERVISOR WINTER, VALERIE S 788.1 DYSURIA 07/30/2012 SALLY SUPERVISOR WINTER, VALERIE S 788.1 DYSURIA 07/30/2012 SALLY SUPERVISOR WINTER, VALERIE S 788.1 DYSURIA 07/30/2012 YATES DO, KARO K 788.1 DYSURIA 07/30/2012 SALLY SUPERVISOR WINTER, VALERIE S 788.1 DYSURIA 07/30/2012 YATES DO, KARO K 788.1 DYSURIA 07/30/2012 SALLY SUPERVISOR WINTER, VALERIE S 788.1 DYSURIA 07/30/2012 SALLY SUPERVISOR WINTER, VALERIE S 788.1 DYSURIA 07/30/2012 SALLY SUPERVISOR WINTER, VALERIE S 788.1 DYSURIA 07/30/2012 YATES DO, KARO K 788.1 DYSURIA 07/30/2012 SALLY SUPERVISOR WINTER, VALERIE S 788.1 DYSURIA 02/04/2013 MARY JO ABRAMS, MICHELLE 719.40 ARTHRAIGIA UNSPEC 02/04/2013 SALLY SUPERVISOR WINTER, VALERIE S 719.40 ARTHRAIGIA UNSPEC 02/04/2013 SALLY SUPERVISOR WINTER, VALERIE S 719.40 ARTHRAIGIA UNSPEC 02/04/2013 YATES DO, KARO K 719.40 ARTHRAIGIA UNSPEC 02/04/2013 SALLY SUPERVISOR WINTER, VALERIE S 719.40 ARTHRAIGIA UNSPEC 02/04/2013 YATES DO, KARO K 719.40 ARTHRAIGIA UNSPEC 02/04/2013 SALLY SUPERVISOR WINTER, VALERIE S 719.40 ARTHRAIGIA UNSPEC 02/04/2013 SALLY SUPERVISOR WINTER, VALERIE S 719.40 ARTHRAIGIA UNSPEC 02/04/2013 SALLY SUPERVISOR WINTER, VALERIE S 719.40 ARTHRAIGIA UNSPEC 02/04/2013 SALLY SUPERVISOR WINTER, VALERIE S 719.40 ARTHRAIGIA UNSPEC 02/04/2013 SALLY SUPERVISOR WINTER, VALERIE S 719.40 ARTHRAIGIA UNSPEC 02/04/2013 SALLY SUPERVISOR WINTER, VALERIE S 719.40 ARTHRAIGIA UNSPEC 02/04/2013 SALLY SUPERVISOR WINTER, VALERIE S 719.40 ARTHRAIGIA UNSPEC 02/04/2013 YATES DO, KARO K 719.40 ARTHRAIGIA UNSPEC 02/04/2013 SALLY SUPERVISOR WINTER, VALERIE S 719.40 ARTHRAIGIA UNSPEC 02/04/2013 YATES DO, KARO K 719.40 ARTHRAIGIA UNSPEC 02/04/2013 SALLY SUPERVISOR WINTER, VALERIE S 719.40 ARTHRAIGIA UNSPEC 02/04/2013 SALLY SUPERVISOR WINTER, VALERIE S 719.40 ARTHRAIGIA UNSPEC 02/04/2013 SALLY SUPERVISOR WINTER, VALERIE S 719.40 ARTHRAIGIA UNSPEC 02/04/2013 YATES DO, KARO K 719.40 ARTHRAIGIA UNSPEC 02/04/2013 SALLY SUPERVISOR WINTER, VALERIE S 719.40 ARTHRAIGIA UNSPEC 04/02/2013 SALLY SUPERVISOR WINTER, VALERIE S 786.52 CHEST WALL PAIN 04/02/2013 YATES DO, KARO K 786.52 CHEST WALL PAIN 04/02/2013 SALLY SUPERVISOR WINTER, VALERIE S 786.52 CHEST WALL PAIN 04/02/2013 YATES DO, KARO K 786.52 CHEST WALL PAIN 04/02/2013 SALLY SUPERVISOR WINTER, VALERIE S 786.52 CHEST WALL PAIN 04/02/2013 SALLY SUPERVISOR WINTER, VALERIE S 786.52 CHEST WALL PAIN 04/02/2013 SALLY SUPERVISOR WINTER, VALERIE S 786.52 CHEST WALL PAIN 04/02/2013 SALLY SUPERVISOR WINTER, VALERIE S 786.52 CHEST WALL PAIN 04/02/2013 SALLY SUPERVISOR WINTER, VALERIE S 786.52 CHEST WALL PAIN 04/02/2013 SALLY SUPERVISOR WINTER, VALERIE S 786.52 CHEST WALL PAIN 04/02/2013 SALLY SUPERVISOR WINTER, VALERIE S 786.52 CHEST WALL PAIN 04/02/2013 YATES DO KARO K 786.52 CHEST WALL PAIN 04/02/2013 SALLY SUPERVISOR WINTER, VALERIE S 786.52 CHEST WALL PAIN 04/02/2013 YATES DO, KARO K 786.52 CHEST WALL PAIN 04/02/2013 SALLY SUPERVISOR WINTER, VALERIE S 786.52 CHEST WALL PAIN 04/02/2013 SALLY SUPERVISOR WINTER, VALERIE S 786.52 CHEST WALL PAIN 04/02/2013 SALLY SUPERVISOR WINTER, VALERIE S 786.52 CHEST WALL PAIN 04/02/2013 YATES DO, KARO K 786.52 CHEST WALL PAIN 04/02/2013 SALLY SUPERVISOR WINTER, VALERIE S 786.52 CHEST WALL PAIN 04/06/2013 MILAN RAMIREZ KARO K 053.9 HERPES ZOSTER (SHINGLES) 04/06/2013 YATES DO, KARO K 382.00 ACUTE OTITIS MEDIA (LEFT) 04/06/2013 SALLY SUPERVISOR WINTER, VALERIE S 053.9 HERPES ZOSTER (SHINGLES) 04/06/2013 SALLY SUPERVISOR WINTER, VALERIE S 382.00 ACUTE OTITIS MEDIA (LEFT) 04/06/2013 YATES DO, KARO K 053.9 HERPES ZOSTER (SHINGLES) 04/06/2013 YATES DO, KARO K 382.00 ACUTE OTITIS MEDIA (LEFT) 04/06/2013 SALLY SUPERVISOR WINTER, VALERIE S 053.9 HERPES ZOSTER (SHINGLES) 04/06/2013 SALLY SUPERVISOR WINTER, VALERIE S 382.00 ACUTE OTITIS MEDIA (LEFT) 04/06/2013 SALLY SUPERVISOR WINTER, VALERIE S 053.9 HERPES ZOSTER (SHINGLES) 04/06/2013 SALLY SUPERVISOR WINTER, VALERIE S 382.00 ACUTE OTITIS MEDIA (LEFT) 04/06/2013 SALLY SUPERVISOR WINTER, VALERIE S 053.9 HERPES ZOSTER (SHINGLES) 04/06/2013 SALLY SUPERVISOR WINTER, VALERIE S 382.00 ACUTE OTITIS MEDIA (LEFT) 04/06/2013 SALLY SUPERVISOR WINTER, VALERIE S 053.9 HERPES ZOSTER (SHINGLES) 04/06/2013 SALLY SUPERVISOR WINTER, VALERIE S 382.00 ACUTE OTITIS MEDIA (LEFT) 04/06/2013 SALLY SUPERVISOR WINTER, VALERIE S 053.9 HERPES ZOSTER (SHINGLES) 04/06/2013 SALLY SUPERVISOR WINTER, VALERIE S 382.00 ACUTE OTITIS MEDIA (LEFT) 04/06/2013 SALLY SUPERVISOR WINTER, VALERIE S 053.9 HERPES ZOSTER (SHINGLES) 04/06/2013 SALLY SUPERVISOR WINTER, VALERIE S 382.00 ACUTE OTITIS MEDIA (LEFT) 04/06/2013 SALLY SUPERVISOR WINTER, VALERIE S 053.9 HERPES ZOSTER (SHINGLES) 04/06/2013 SALLY SUPERVISOR WINTER, VALERIE S 382.00 ACUTE OTITIS MEDIA (LEFT) 04/06/2013 YATES DO, KARO K 053.9 HERPES ZOSTER (SHINGLES) 04/06/2013 YATES DO, KARO K 382.00 ACUTE OTITIS MEDIA (LEFT) 04/06/2013 SALLY SUPERVISOR WINTER, VALERIE S 053.9 HERPES ZOSTER (SHINGLES) 04/06/2013 SALLY SUPERVISOR WINTER, VALERIE S 382.00 ACUTE OTITIS MEDIA (LEFT) 04/06/2013 YATES DO, KARO K 053.9 HERPES ZOSTER (SHINGLES) 04/06/2013 YATES DO, KARO K 382.00 ACUTE OTITIS MEDIA (LEFT) 04/06/2013 SALLY SUPERVISOR WINTER, VALERIE S 053.9 HERPES ZOSTER (SHINGLES) 04/06/2013 SALLY SUPERVISOR WINTER, VALERIE S 382.00 ACUTE OTITIS MEDIA (LEFT) 04/06/2013 SALLY SUPERVISOR WINTER, VALERIE S 053.9 HERPES ZOSTER (SHINGLES) 04/06/2013 SALLY SUPERVISOR WINTER, VALERIE S 382.00 ACUTE OTITIS MEDIA (LEFT) 04/06/2013 SALLY SUPERVISOR WINTER, VALERIE S 053.9 HERPES ZOSTER (SHINGLES) 04/06/2013 SALLY SUPERVISOR WINTER, VALERIE S 382.00 ACUTE OTITIS MEDIA (LEFT) 04/06/2013 YATES DO, KARO K 053.9 HERPES ZOSTER (SHINGLES) 04/06/2013 YATES DO, KARO K 382.00 ACUTE OTITIS MEDIA (LEFT) 04/06/2013 SALLY SUPERVISOR WINTER, VALERIE S 053.9 HERPES ZOSTER (SHINGLES) 04/06/2013 SALLY SUPERVISOR WINTER, VALERIE S 382.00 ACUTE OTITIS MEDIA (LEFT) 04/10/2013 SALLY SUPERVISOR WINTER, VALERIE S 380.4 CERUMEN IMPACTION 04/10/2013 SALLY SUPERVISOR WINTER, VALERIE S V76.12 MAMMOGRAM SCREENING 04/10/2013 YATES DO, KARO K 380.4 CERUMEN IMPACTION 04/10/2013 YATES DO, KARO K V76.12 MAMMOGRAM SCREENING 04/10/2013 SALLY SUPERVISOR WINTER, VALERIE S 380.4 CERUMEN IMPACTION 04/10/2013 SALLY SUPERVISOR WINTER, VALERIE S V76.12 MAMMOGRAM SCREENING 04/10/2013 SALLY SUPERVISOR WINTER, VALERIE S 380.4 CERUMEN IMPACTION 04/10/2013 SALLY SUPERVISOR WINTER, VALERIE S V76.12 MAMMOGRAM SCREENING 04/10/2013 SALLY SUPERVISOR WINTER, VALERIE S 380.4 CERUMEN IMPACTION 04/10/2013 SALLY SUPERVISOR WINTER, VALERIE S V76.12 MAMMOGRAM SCREENING 04/10/2013 SALLY SUPERVISOR WINTER, VALERIE S 380.4 CERUMEN IMPACTION 04/10/2013 SALLY SUPERVISOR WINTER, VALERIE S V76.12 MAMMOGRAM SCREENING 04/10/2013 SALLY SUPERVISOR WINTER, VALERIE S 380.4 CERUMEN IMPACTION 04/10/2013 SALLY SUPERVISOR WINTER, VALERIE S V76.12 MAMMOGRAM SCREENING 04/10/2013 SALLY SUPERVISOR WINTER, VALERIE S 380.4 CERUMEN IMPACTION 04/10/2013 SALLY SUPERVISOR WINTER, VALERIE S V76.12 MAMMOGRAM SCREENING 04/10/2013 SALLY SUPERVISOR WINTER, VALERIE S 380.4 CERUMEN IMPACTION 04/10/2013 SALLY SUPERVISOR WINTER, VALERIE S V76.12 MAMMOGRAM SCREENING 04/10/2013 YATES DO, KARO K 380.4 CERUMEN IMPACTION 04/10/2013 YATES DO, KARO K V76.12 MAMMOGRAM SCREENING 04/10/2013 SALLY SUPERVISOR WINTER, VALERIE S 380.4 CERUMEN IMPACTION 04/10/2013 SALLY SUPERVISOR WINTER, VALERIE S V76.12 MAMMOGRAM SCREENING 04/10/2013 YATES DO, KARO K 380.4 CERUMEN IMPACTION 04/10/2013 YATES DO, KARO K V76.12 MAMMOGRAM SCREENING 04/10/2013 SALLY SUPERVISOR WINTER, VALERIE S 380.4 CERUMEN IMPACTION 04/10/2013 SALLY SUPERVISOR WINTER, VALERIE S V76.12 MAMMOGRAM SCREENING 04/10/2013 SALLY SUPERVISOR WINTER, VALERIE S 380.4 CERUMEN IMPACTION 04/10/2013 SALLY SUPERVISOR WINTER, VALERIE S V76.12 MAMMOGRAM SCREENING 04/10/2013 SALLY SUPERVISOR WINTER, VALERIE S 380.4 CERUMEN IMPACTION 04/10/2013 SALLY SUPERVISOR WINTER, VALERIE S V76.12 MAMMOGRAM SCREENING 04/10/2013 YATES DO, KARO K 380.4 CERUMEN IMPACTION 04/10/2013 YATES DO, KARO K V76.12 MAMMOGRAM SCREENING 04/10/2013 SALLY SUPERVISOR WINTER, VALERIE S 380.4 CERUMEN IMPACTION 04/10/2013 SALLY SUPERVISOR WINTER, VALERIE S V76.12 MAMMOGRAM SCREENING 09/09/2013 SALLY SUPERVISOR WINTER, VALERIE S 272.4 HYPERLIPIDEMIA 09/09/2013 SALLY SUPERVISOR WINTER, VALERIE S 272.4 HYPERLIPIDEMIA 09/09/2013 SALLY SUPERVISOR WINTER, VALERIE S 272.4 HYPERLIPIDEMIA 09/09/2013 SALLY SUPERVISOR WINTER, VALERIE S 272.4 HYPERLIPIDEMIA 09/09/2013 YATES DO, KARO K 272.4 HYPERLIPIDEMIA 09/09/2013 SALLY SUPERVISOR WINTER, VALERIE S 272.4 HYPERLIPIDEMIA 09/09/2013 YATES DO, KARO K 272.4 HYPERLIPIDEMIA 09/09/2013 SALLY SUPERVISOR WINTER, VALERIE S 272.4 HYPERLIPIDEMIA 09/09/2013 SALLY SUPERVISOR WINTER, VALERIE S 272.4 HYPERLIPIDEMIA 09/09/2013 SALLY SUPERVISOR WINTER, VALERIE S 272.4 HYPERLIPIDEMIA 09/09/2013 YATES DO, KARO K 272.4 HYPERLIPIDEMIA 09/09/2013 SALLY SUPERVISOR WINTER, VALERIE S 272.4 HYPERLIPIDEMIA 10/17/2013 SALLY SUPERVISOR WINTER, VALERIE S 724.5 BACK PAIN, GENERAL 10/17/2013 SALLY SUPERVISOR WINTER, VALERIE S 724.5 BACK PAIN, GENERAL 10/17/2013 SALLY SUPERVISOR WINTER, VALERIE S 724.5 BACK PAIN, GENERAL 10/17/2013 YATES DO, KARO K 724.5 BACK PAIN, GENERAL 10/17/2013 SALLY SUPERVISOR WINTER, VALERIE S 724.5 BACK PAIN, GENERAL 10/17/2013 YATES DO, KARO K 724.5 BACK PAIN, GENERAL 10/17/2013 SALLY SUPERVISOR WINTER, VALERIE S 724.5 BACK PAIN, GENERAL 10/17/2013 SALLY SUPERVISOR WINTER, VALERIE S 724.5 BACK PAIN, GENERAL 10/17/2013 SALLY SUPERVISOR WINTER, VALERIE S 724.5 BACK PAIN, GENERAL 10/17/2013 YATES DO, KARO K 724.5 BACK PAIN, GENERAL 10/17/2013 SALLY SUPERVISOR WINTER, VALERIE S 724.5 BACK PAIN, GENERAL 12/03/2013 SALLY SUPERVISOR WINTER, VALERIE S 496 COPD 12/03/2013 SALLY SUPERVISOR WINTER, VALERIE S 599.0 URINARY TRACT INFECTION 12/03/2013 SALLY SUPERVISOR WINTER, VALERIE S 788.41 URINARY FREQUENCY 12/03/2013 SALLY SUPERVISOR WINTER, VALERIE S 496 COPD 12/03/2013 SALLY SUPERVISOR WINTER, VALERIE S 599.0 URINARY TRACT INFECTION 12/03/2013 SALLY SUPERVISOR WINTER, VALERIE S 788.41 URINARY FREQUENCY 12/03/2013 YATES DO, KARO K 496 COPD 12/03/2013 YATES DO, KARO K 599.0 URINARY TRACT INFECTION 12/03/2013 YATES DO, KARO K 788.41 URINARY FREQUENCY 12/03/2013 SALLY SUPERVISOR WINTER, VALERIE S 496 COPD 12/03/2013 SALLY SUPERVISOR WINTER, VALERIE S 599.0 URINARY TRACT INFECTION 12/03/2013 SALLY SUPERVISOR WINTER, VALERIE S 788.41 URINARY FREQUENCY 12/03/2013 YATES DO, KARO K 496 COPD 12/03/2013 YATES DO, KARO K 599.0 URINARY TRACT INFECTION 12/03/2013 YATES DO, KARO K 788.41 URINARY FREQUENCY 12/03/2013 SALLY SUPERVISOR WINTER, VALERIE S 496 COPD 12/03/2013 SALLY SUPERVISOR WINTER, VALERIE S 599.0 URINARY TRACT INFECTION 12/03/2013 SALLY SUPERVISOR WINTER, VALERIE S 788.41 URINARY FREQUENCY 12/03/2013 SALLY SUPERVISOR WINTER, VALERIE S 496 COPD 12/03/2013 SALLY SUPERVISOR WINTER, VALERIE S 599.0 URINARY TRACT INFECTION 12/03/2013 SALLY SUPERVISOR WINTER, VALERIE S 788.41 URINARY FREQUENCY 12/03/2013 SALLY SUPERVISOR WINTER, VALERIE S 496 COPD 12/03/2013 SALLY SUPERVISOR WINTER, VALERIE S 599.0 URINARY TRACT INFECTION 12/03/2013 SALLY SUPERVISOR WINTER, VALERIE S 788.41 URINARY FREQUENCY 12/03/2013 YATES DO, KARO K 496 COPD 12/03/2013 YATES DO, KARO K 599.0 URINARY TRACT INFECTION 12/03/2013 YATES DO, KARO K 788.41 URINARY FREQUENCY 12/03/2013 SALLY SUPERVISOR WINTER, VALERIE S 496 COPD 12/03/2013 SALLY SUPERVISOR WINTER, VALERIE S 599.0 URINARY TRACT INFECTION 12/03/2013 SALLY SUPERVISOR WINTER, VALERIE S 788.41 URINARY FREQUENCY 01/23/2014 YATES DO, KARO K 477.0 ALLERGIC RHINITIS DUE TO POLLEN 01/23/2014 SALLY SUPERVISOR WINTER, VALERIE S 477.0 ALLERGIC RHINITIS DUE TO POLLEN 01/23/2014 YATES DO, KARO K 477.0 ALLERGIC RHINITIS DUE TO POLLEN 01/23/2014 SALLY SUPERVISOR WINTER, VALERIE S 477.0 ALLERGIC RHINITIS DUE TO POLLEN 01/23/2014 SALLY SUPERVISOR WINTER, VALERIE S 477.0 ALLERGIC RHINITIS DUE TO POLLEN 01/23/2014 SALLY SUPERVISOR WINTER, VALERIE S 477.0 ALLERGIC RHINITIS DUE TO POLLEN 01/23/2014 YATES DO, KARO K 477.0 ALLERGIC RHINITIS DUE TO POLLEN 01/23/2014 SALLY SUPERVISOR WINTER, VALERIE S 477.0 ALLERGIC RHINITIS DUE TO POLLEN 02/26/2014 MIKE NICHOLSON L Ot 564.00 UNSPEC CONSTIPATION 02/26/2014 MIKE NICHOLSON Ot 788.0 RENAL COLIC 02/26/2014 MIKE NICHOLSON L Ot 789.09 ABDOMINAL PAIN, OTHER SPECIFIED SITE 03/03/2014 SALLY SUPERVISOR WINTER, VALERIE S 592.0 CALCULUS OF KIDNEY 03/03/2014 YATES DO, KARO K 592.0 CALCULUS OF KIDNEY 03/03/2014 SALLY SUPERVISOR WINTER, VALERIE S 592.0 CALCULUS OF KIDNEY 03/03/2014 SALLY SUPERVISOR WINTER, VALERIE S 592.0 CALCULUS OF KIDNEY 03/03/2014 SALLY SUPERVISOR WINTER, VALERIE S 592.0 CALCULUS OF KIDNEY 03/03/2014 YATES DO, KARO K 592.0 CALCULUS OF KIDNEY 03/03/2014 SALLY SUPERVISOR WINTER, VALERIE S 592.0 CALCULUS OF KIDNEY 04/07/2014 YATES DO, KARO K 789.01 ABDOMINAL PAIN RIGHT UPPER QUADRANT 04/07/2014 SALLY SUPERVISOR WINTER, AVLERIE S 789.01 ABDOMINAL PAIN RIGHT UPPER QUADRANT 04/07/2014 SALLY SUPERVISOR WINTER, VALERIE S 789.01 ABDOMINAL PAIN RIGHT UPPER QUADRANT 04/07/2014 SALLY SUPERVISOR WINTER, VALERIE S 789.01 ABDOMINAL PAIN RIGHT UPPER QUADRANT 04/07/2014 YATES DO, KARO K 789.01 ABDOMINAL PAIN RIGHT UPPER QUADRANT 04/07/2014 SALLY SUPERVISOR WINTER, VALERIE S 789.01 ABDOMINAL PAIN RIGHT UPPER [...] VALERIE ZAVALA Ot 382.00 10/29/2014 VALERIE ZAVALA KIER HAND Ot 401.1 10/29/2014 VALERIE ZAVALAP Ot 564.1 10/29/2014 VALERIE ZAVALA KIER HAND Ot 719.40 10/29/2014 VALERIE ZAVALA KIER HAND Ot 786.52 10/29/2014 VALERIE ZAVALA KIER HAND Ot V76.12 10/29/2014 SEDRICK DOBSON R SUPERVISOR WINTER Ot 338.4 10/29/2014 BRONSON SEDRICK R SUPERVISOR WINTER Ot 401.1 10/29/2014 SEDRICK DOBSON R SUPERVISOR WINTER Ot 564.1 10/29/2014 SEDRICK DOBSON R SUPERVISOR WINTER Ot 719.40 10/29/2014 VALERIE ZAVALA KIER HAND Ot 789.01 10/29/2014 BALTAZAR COTTER DO Ot 789.01 10/29/2014 VALERIE ZAVALA KIER HAND Ot 789.09 11/03/2014 DOLORES DPM, SHERI Q [...] SHERI Q Ot V74.8 01/10/2015 TAL ABRAMS, ALBRAO P Ot 305.1 TOBACCO USE DISORDER 01/10/2015 [...] ABRAMS, ALBARO P Ot V57.1 02/12/2015 TAL ABRMAS, ALBARO P Ot V57.21 02/12/2015 TAL ABRAMS, [...] VALERIE ZAVALAP Ot 380.4 03/31/2015 VALERIE ZAVALA KIER HAND Ot 382.00 03/31/2015 VALERIE ZAVALA KIER HAND Ot 401.1 03/31/2015 VALERIE ZAVALA KIER HAND Ot 564.1 03/31/2015 VALERIE ZAVALA KIER HAND Ot 719.40 03/31/2015 VALERIE ZAVALA KIER HAND Ot 786.52 03/31/2015 VALERIE ZAVALA KIER HAND Ot V76.12 03/31/2015 BRONSON SEDRICK R SUPERVISOR WINTER Ot 338.4 03/31/2015 BRONSON SEDRICK R SUPERVISOR WINTER Ot 401.1 03/31/2015 BRONSON SEDRICK R SUPERVISOR WINTER Ot 564.1 03/31/2015 BRONSON SEDRICK R SUPERVISOR WINTER Ot 719.40 03/31/2015 VALERIE ZAVALA KIER HAND Ot 789.01 03/31/2015 COTTER BALTAZAR RAMIREZ Ot 789.01 03/31/2015 VALERIE ZAVALA KIER HAND Ot 789.09 03/31/2015 DOLORES DPM, SHERI Q [...] Ot 786.52 PAINFUL RESPIRATION 10/23/2015 SALLY, VALERIE KIER HAND Ot V76.12 OTH SCREEN MAMMO-MALIGN NEOPLASM OF [place] 10/23/2015 SEDRICK DOBSON SUPERVISOR WINTER Ot 338.4 CHRONIC PAIN SYNDROME 10/23/2015 SEDRICK DOBSON SUPERVISOR WINTER Ot 401.1 BENIGN HYPERTENSION 10/23/2015 SEDRICK DOBSON SUPERVISOR WINTER Ot 564.1 IRRITABLE BOWEL SYNDROME 10/23/2015 SEDRICK DOBSON SUPERVISOR WINTER Ot 719.40 JOINT PAIN-UNSPEC 10/23/2015 VALERIE ZAVALA KIER HAND Ot 789.01 ABDOMINAL PAIN, RIGHT UPPER QUADRANT 10/23/2015 COTTER BALTAZAR RAMIREZ Delia Ot 789.01 ABDOMINAL PAIN, RIGHT UPPER QUADRANT 10/23/2015 VALERIE ZAVALA KIER HAND Ot 789.09 ABDOMINAL PAIN, OTHER SPECIFIED SITE 10/23/2015 DOLORES DPM, SHERI Q Ot 735.0 HALLUX VALGUS 10/23/2015 DOLORES DPM, SHERI Q Ot 735.4 OTHER HAMMER TOE 10/23/2015 DOLORES DPM, SHERI Q Ot V72.81 [id number] CARDIOVASCULAR 10/23/2015 DOLORES DPM, SHERI Q Ot [...] LOWER ABDOMINAL PAIN, UNSPECIFIED 2015 SALLYVALERIE FERGUSON KIER HAND Ot R10.11 RIGHT UPPER QUADRANT PAIN 11/12/2015 VALERIE ZAVALA KIER HAND Ot R10.11 RIGHT UPPER QUADRANT PAIN 11/19/2015 VALERIE ZAVALA KIER HAND Ot R10.11 RIGHT UPPER QUADRANT PAIN 05/29/2016 [...] LUMB/ LUMBOSAC DISC DEGEN 06/02/2016 VALERIE ZAVALA KIER HAND Ot 053.9 HERPES ZOSTER NOS 06/02/2016 VALERIE ZAVALA KIER HAND Ot 338.4 CHRONIC PAIN SYNDROME 06/02/2016 VALERIE ZAVALA KIER HAND Ot 380.4 IMPACTED CERUMEN 06/02/2016 VALERIE ZAVALA KIER HAND Ot 382.00 AC SUPP OTITIS MEDIA NOS 06/02/2016 VALERIE ZAVALA KIER HAND Ot 401.1 BENIGN HYPERTENSION 06/02/2016 VALERIE ZAVALAP Ot 564.1 IRRITABLE BOWEL SYNDROME 06/02/2016 VALERIE ZAVALAP Ot 719.40 JOINT PAIN-UNSPEC 06/02/2016 VALERIE ZAVALAP Ot 786.52 PAINFUL RESPIRATION 06/02/2016 VALERIE ZAVALAP Ot V76.12 OTH SCREEN MAMMO-MALIGN NEOPLASM OF [place] 06/02/2016 SEDRICK DOBSON SUPERVISOR WINTER Ot 338.4 CHRONIC PAIN SYNDROME 06/02/2016 SEDRICK DOBSON SUPERVISOR WINTER Ot 401.1 BENIGN HYPERTENSION 06/02/2016 SEDRICK DOBSON SUPERVISOR WINTER Ot 564.1 IRRITABLE BOWEL SYNDROME 06/02/2016 SEDRICK DOBSON SUPERVISOR WINTER Ot 719.40 JOINT PAIN-UNSPEC 06/02/2016 VALERIE ZAVALA Ot 789.01 ABDOMINAL PAIN, RIGHT UPPER QUADRANT 06/02/2016 BALTAZAR COTTER DO Ot 789.01 ABDOMINAL PAIN, RIGHT UPPER QUADRANT 06/02/2016 VALERIE ZAVALA Ot 789.09 ABDOMINAL PAIN, OTHER SPECIFIED SITE 06/02/2016 DOLORES DPM, SHERI Q Ot 735.0 HALLUX VALGUS 06/02/2016 DOLORES DPM, SHERI Q Ot 735.4 OTHER HAMMER TOE 06/02/2016 DOLORES DPM, SHERI Q Ot V72.81 [id number] CARDIOVASCULAR 06/02/2016 DOLORES DPM, SHERI Q Ot [...] RIGHT ARTIFICIAL KNEE JOINT 06/25/2016 ANDREW KANG KIER HAND Ot I10 ESSENTIAL (PRIMARY) HYPERTENSION 06/25/2016 ANDREW KANGP Ot J44.9 CHRONIC OBSTRUCTIVE PULMONARY DISEASE, U 06/25/2016 PEARL, ANDREW KIER HAND Ot N39.0 URINARY TRACT INFECTION, SITE NOT SPECIF 06/25/2016 PEARL, ANDREW KIER HAND Ot R30.0 DYSURIA 06/28/2016 PEARL ANDREW KIER HAND Ot I10 ESSENTIAL (PRIMARY) HYPERTENSION 06/28/2016 PEARL ANDREW KIER HAND Ot J44.9 CHRONIC OBSTRUCTIVE PULMONARY DISEASE, U 06/28/2016 PEARL, ANDREW KIER HAND Ot N39.0 URINARY TRACT INFECTION, SITE NOT SPECIF 06/28/2016 PEARL ANDREW KIER HAND Ot R30.0 DYSURIA 07/08/2016 BINU JAVIER MD Ot I10 ESSENTIAL (PRIMARY) HYPERTENSION 07/08/2016 BINU JAVIER MD T Ot J44.9 CHRONIC OBSTRUCTIVE PULMONARY DISEASE, U 07/08/2016 BINU JAVIER MD T Ot N32.89 OTHER SPECIFIED DISORDERS OF BLADDER 07/08/2016 BINU JAVIER MD Ot N39.0 URINARY TRACT INFECTION, SITE NOT SPECIF 07/08/2016 BINU JAVIER MD Ot R30.0 DYSURIA 07/08/2016 BINU JAVIER MD Ot Z79.899 OTHER HANDY MAN (CURRENT) DRUG THERAPY 07/11/2016 BINU JAVIER MD Ot I10 ESSENTIAL (PRIMARY) HYPERTENSION 07/11/2016 BINU JAVIER MD Ot J44.9 CHRONIC OBSTRUCTIVE PULMONARY DISEASE, U 07/11/2016 BINU JAVIER MD Ot N32.89 OTHER SPECIFIED DISORDERS OF BLADDER 07/11/2016 BINU JAVIER MD Ot N39.0 URINARY TRACT INFECTION, SITE NOT SPECIF 07/11/2016 BINU JAVIER MD Ot R30.0 DYSURIA 07/11/2016 BINU JAVIER MD T Ot Z79.899 OTHER HANDY MAN (CURRENT) DRUG THERAPY 07/13/2016 BINU JAVIER MD Ot I10 ESSENTIAL (PRIMARY) HYPERTENSION 07/13/2016 BINU JAVIER MD Ot J44.9 CHRONIC OBSTRUCTIVE PULMONARY DISEASE, U 07/13/2016 BINU JAVIER MD T Ot N32.89 OTHER SPECIFIED DISORDERS OF BLADDER 07/13/2016 BINU JAVIER MD Ot N39.0 URINARY TRACT INFECTION, SITE NOT SPECIF 07/13/2016 BINU JAVIER MD Ot R30.0 DYSURIA 07/13/2016 BINU JAVIER MD T Ot Z79.899 OTHER HANDY MAN (CURRENT) DRUG THERAPY 08/21/2016 LORETO TIPTON DO [...] SAEED DO, LORETO K Ot Z79.899 OTHER [facility] (CURRENT) DRUG THERAPY 08/23/2016 SAEED DO, LORETO [...] SAEED DO, LORETO K Ot Z79.899 OTHER [facility] (CURRENT) DRUG THERAPY 09/18/2016 THANH MAO MD [...] VOMITING, UNSPECIFIED 02/09/2017 SEDRICK DOBSON R SUPERVISOR WINTER Ot R10.31 RIGHT LOWER QUADRANT PAIN 02/28/2017 BRONSON SEDRICK R SUPERVISOR WINTER Ot R10.31 RIGHT LOWER QUADRANT PAIN 03/10/2017 BRONSON SEDRICK R SUPERVISOR WINTER Ot R10.31 RIGHT LOWER QUADRANT PAIN 05/17/2017 ADRIAN ZAVALAA KIER HAND Ot N20.0 CALCULUS OF KIDNEY 05/17/2017 ADRIAN ZAVALAA KIER HAND Ot R91.8 OTHER NONSPECIFIC ABNORMAL FINDING OF DAVID 06/02/2017 ADRIAN ZAVALAA KIER HAND Ot R31.9 HEMATURIA, UNSPECIFIED 06/02/2017 ADRIAN ZAVALAA KIER HAND Ot Z87.442 PERSONAL HISTORY OF URINARY CALCULI 06/07/2017 ADRIAN ZAVALAA KIER HAND Ot R31.9 HEMATURIA, UNSPECIFIED 06/07/2017 SALLY, VALERIE KIER HAND Ot Z87.442 PERSONAL HISTORY OF URINARY CALCULI 06/13/2017 ADRIAN ZAVALAA KIER HAND Ot N20.0 CALCULUS OF KIDNEY 06/13/2017 SALLYADRIAN FERGUSONA KIER HAND Ot R91.8 OTHER NONSPECIFIC ABNORMAL FINDING OF DAVID 06/16/2017 ADRIAN ZAVALAA KIER HAND Ot N20.0 CALCULUS OF KIDNEY 06/16/2017 ADRIAN ZAVALAA KIER HAND Ot R91.8 OTHER NONSPECIFIC ABNORMAL FINDING OF DAVID 06/23/2017 ADRIAN ZAVALAA KIER HAND Ot R31.9 HEMATURIA, UNSPECIFIED 06/23/2017 ADRIAN ZAVALAA KIER HAND Ot Z87.442 PERSONAL HISTORY OF URINARY CALCULI 07/21/2017 ADRIAN ZAVALAA KIER HAND Ot R31.9 HEMATURIA, UNSPECIFIED 07/21/2017 ADRIAN ZAVALAA KIER HAND Ot Z87.442 PERSONAL HISTORY OF URINARY CALCULI [...] LUMB/ LUMBOSAC DISC DEGEN 09/01/2017 VALERIE ZAVALA KIER HAND Ot 053.9 HERPES ZOSTER NOS 09/01/2017 VALERIE ZAVALA KIER HAND Ot 338.4 CHRONIC PAIN SYNDROME 09/01/2017 VALERIE ZAVALA KIER HAND Ot 380.4 IMPACTED CERUMEN 09/01/2017 VALERIE ZAVALA KIER HAND Ot 382.00 AC SUPP OTITIS MEDIA NOS 09/01/2017 VALERIE ZAVALA KIER HAND Ot 401.1 BENIGN HYPERTENSION 09/01/2017 VALERIE ZAVALA KIER HAND Ot 564.1 IRRITABLE BOWEL SYNDROME 09/01/2017 VALERIE ZAVALA KIER HAND Ot 719.40 JOINT PAIN-UNSPEC 09/01/2017 VALERIE ZAVALA KIER HAND Ot 786.52 PAINFUL RESPIRATION 09/01/2017 VALERIE ZAVALA KIER HAND Ot V76.12 OTH SCREEN MAMMO-MALIGN NEOPLASM OF JOSIAH 09/01/2017 SEDRICK DOBSON SUPERVISOR WINTER Ot 338.4 CHRONIC PAIN SYNDROME 09/01/2017 SEDRICK DOBSON SUPERVISOR WINTER Ot 401.1 BENIGN HYPERTENSION 09/01/2017 SEDRICK DOBSON SUPERVISOR WINTER Ot 564.1 IRRITABLE BOWEL SYNDROME 09/01/2017 SEDRICK DOBSON SUPERVISOR WINTER Ot 719.40 JOINT PAIN-UNSPEC 09/01/2017 VALERIE ZAVALA KIER HAND Ot 789.01 ABDOMINAL PAIN, RIGHT UPPER QUADRANT 09/01/2017 BALTAZAR COTTER DO Ot 789.01 ABDOMINAL PAIN, RIGHT UPPER QUADRANT 09/01/2017 VALERIE ZAVALAP Ot 789.09 ABDOMINAL PAIN, OTHER SPECIFIED SITE 09/01/2017 DOLORES DPM, SHERI Q Ot 735.0 HALLUX VALGUS 09/01/2017 DOLORES DPM, SHERI Q Ot 735.4 OTHER HAMMER TOE 09/01/2017 DOLORES DPM, SHERI Q Ot V72.81 [id number] CARDIOVASCULAR 09/01/2017 DOLORES DPM, SHERI Q Ot [...] OTHER PREPROCEDURAL EXAMIN 09/01/2017 SEDRICK DOBSON SUPERVISOR WINTER Ot R10.31 RIGHT LOWER QUADRANT PAIN 09/01/2017 VALERIE ZAVALAP Ot N20.0 CALCULUS OF KIDNEY 09/01/2017 VALERIE ZAVALA Ot R91.8 OTHER NONSPECIFIC ABNORMAL FINDING OF DAVID 09/01/2017 VALERIE ZAVALAP Ot R31.9 HEMATURIA, UNSPECIFIED 09/01/2017 VALERIE ZAVALAP Ot Z87.442 PERSONAL HISTORY OF URINARY CALCULI 09/21/2017 SALLY, VALERIE KIER HAND Ot Z12.31 ENCNTR SCREEN MAMMOGRAM FOR MALIGNANT NE 09/22/2017 SALLYSERINAVALERIE KIER HAND Ot Z12.31 ENCNTR SCREEN MAMMOGRAM FOR MALIGNANT [...] AN 10/05/2017 CYDNEY ANDERSON APRN Ot Z79.51 [facility] (CURRENT) USE OF INHALED STERO 10/05/2017 CYDNEY [...] MD Ot R10.9 UNSPECIFIED ABDOMINAL PAIN 11/29/2017 BRII [...] Ot Z90.89 ACQUIRED ABSENCE OF OTHER ORGANS 12/29/2017 Ot Z01.818 ENCOUNTER FOR OTHER PREPROCEDURAL EXAMIN Procedures Code Description [place] [address] XRAY FOOT LEFT 2 VIEWS 03/16/2012 INJ TENDON SHEATH/LIGAMENT 06/29/2012 23601 XRAY FOOT RIGHT 2 VIEWS 06/29/2012 48210 XRAY FOOT LEFT 2 VIEWS 06/29/2012 66680 MRI SPINE (LUMBAR) W/O CONTRAST 07/05/2012 66874 CULTURE URINE 08/01/2012 01203 ROUTINE VENIPUNCTURE 02/04/2013 58846 URINE DRUG SCREEN (IN-HOUSE ) 02/04/2013 33296 CBC 02/04/2013 19655 CMP 02/04/2013 96619 URIC ACID 02/04/2013 08182 LIPID PANEL 02/04/2013 6578293 GFR CALC (RESULT ONLY) 02/04/2013 38100 CRP 02/04/2013 37944 ESR/SED RATE 02/04/2013 45465 ASO 02/05/2013 42471 RA FACTOR 02/05/2013 ANAANA PEMA ANALYZER (SCREEN) 02/05/2013 G0008 FLU ADMINISTRATION ( MEDICARE ONLY) 02/17/2013 24885 XRAY CHEST 2 VIEW 04/10/2013 71731 MAMMOGRAM, SCREENING 05/07/2013 61541 URINE DRUG SCREEN (IN-HOUSE ) 06/04/2013 13140 US RENAL ARTERY DOPPLER 09/12/2013 45752 XRAY S-C JOINTS 2 OR MORE VIEWS 10/17/2013 86259 XRAY PELVIS 1 OR 2 VIEWS 10/17/2013 Physical Physical Therapy, [facility] 10/17/2013 47052 ROUTINE VENIPUNCTURE 02/18/2014 7812066 GFR CALC (RESULT ONLY) 02/18/2014 12299 CMP 02/18/2014 55080 LIPID PANEL 02/18/2014 Urology Frank Cole 03/03/2014 29040 UA W/ CULTURE IF INDICATED 04/07/2014 77458 US GALLBLADDER ULTRASOUND 04/07/2014 50041 HIDA SCAN 04/07/2014 General S Baltazar Cotter 04/29/2014 23600 UA LONG DIP 05/31/2014 83752 ROUTINE VENIPUNCTURE 06/04/2014 3363286 GFR CALC (RESULT ONLY) 06/04/2014 68686 CMP 06/04/2014 71962 CBC 06/04/2014 19532 CELIAC DISEASE ANALYZER 06/06/2014 69947 N-METHYLHISTAMINE, 24HR URINE 06/19/2014 28336 XRAY KNEE RIGHT 3 VIEWS 08/25/2014 Albaro [...] - 05/29/16 16:50 Bacterial blood culture NG [facility] Bacterial blood culture - 05/29/16 17:02 Bacterial blood culture NG [facility] Complete blood count (CBC) with automated white [...] culture - 06/02/16 17:06 Bacterial urine culture [id number] NRG COLONY COUNT >100,000/ML NR FTX;REPORTABLE SENSITIVITY REPORTED 06/03 16:25 [facility] Bacterial susceptibility panel - 06/02/16 17:06 Gentamicin [...] susceptibility test by minimum inhibitory concentration - [facility] Urine osmolality - 06/02/16 17:06 Urine osmolality [...] culture - 06/25/16 13:40 Bacterial urine culture [id number] NRG COLONY COUNT 10,000/ML - 100,000/ML NRG FTX;REPORTABLE SENSITIVITIES REPORTED AT 0849, 06-27-16 NR URINE CULTURE RESULTS PLUS [facility] Bacterial susceptibility panel - 06/25/16 13:40 Gentamicin susceptibility test by minimum inhibitory concentration < = NRG Trimethoprim/sulfamethoxazole susceptibility test by minimum inhibitoryconcentration >= NR Ampicillin susceptibility test by minimum inhibitory concentration [...] susceptibility test by minimum inhibitory concentration - [facility] Bacterial susceptibility panel - 06/25/16 [...] culture - 07/08/16 16:35 Bacterial urine culture [id number] NRG COLONY COUNT >100,000/ML NRG FTX;REPORTABLE SENSITIVITY [...] culture - 08/21/16 18:45 Bacterial urine culture [id number] NRG COLONY COUNT >100,000/ML NRG FTX;REPORTABLE SENSITIVITY REPORTED AT 1651, 4-10-17 NRG Bacterial susceptibility panel - 08/21/16 18:45 [...] 11:49 LIPASE 80 U/L 7-60 PDM - PANEL (PROFILE 1) - 09/20/17 14:31 Prescribed [...] plasma albumin measurement (mass/volume) 4.3 g/dL 3.2-4.5 Complete urinalysis with reflex to culture - 12/20/17 12:45 Urine color determination YELLOW NRG Urine clarity determination CLEAR NRG Urine pH measurement by test strip 5 5-9 Specific gravity of urine by test strip 1.015 1.016- 1.022 Urine protein assay by test strip, semi-quantitative 3+ NEGATIVE Urine glucose detection by automated test strip NEGATIVE NEGATIVE Erythrocytes detection in urine sediment by light microscopy 4+ NEGATIVE Urine ketones detection by automated test strip NEGATIVE NEGATIVE Urine nitrite detection by test strip POSITIVE NEGATIVE Urine total bilirubin detection by test strip 2+ NEGATIVE Urine urobilinogen measurement by automated test strip (mass/volume) 1 mg/dL NORMAL Urine leukocyte esterase detection by dipstick 3+ NEGATIVE Automated urine sediment erythrocyte count by microscopy (number/high power field) [HPF] NRG Automated urine sediment leukocyte count by microscopy (number/high power field ) TNTC NRG Bacteria detection in urine sediment by light microscopy TRACE NRG Squamous epithelial cells detection in urine sediment by light microscopy NONE NRG Crystals detection in urine sediment by light microscopy NONE NRG Casts detection in urine sediment by light microscopy NONE NRG Mucus detection in urine sediment by light microscopy NEGATIVE NRG Complete urinalysis with reflex to culture YES NRG Renal epithelial cells detection in urine sediment by light microscopy NONE NRG Urine drug screening test - 12/20/17 12:45 Urine phencyclidine detection by screening method NEGATIVE NEGATIVE Urine benzodiazepines detection by screening method POSITIVE NEGATIVE Urine cocaine detection NEGATIVE NEGATIVE Urine amphetamines detection by screening method NEGATIVE NEGATIVE Urine methamphetamine detection by screening method POSITIVE NEGATIVE Urine cannabinoids detection by screening method NEGATIVE NEGATIVE Urine opiates detection by screening method POSITIVE NEGATIVE Urine barbiturates detection NEGATIVE NEGATIVE Screening urine tricyclic antidepressants detection NEGATIVE NEGATIVE Urine methadone detection by screening method NEGATIVE NEGATIVE Urine oxycodone detection NEGATIVE NEGATIVE Urine propoxyphene detection NEGATIVE NEGATIVE Bacterial urine culture - 12/20/17 12:45 Bacterial urine culture RML NRG COLONY COUNT . NRG FTX;REPORTABLE FINAL PRINTED 12-21-2017 0805 NRG FREE TEXT ENTRY 2 NO GROWTH NRG Complete blood count (CBC) with automated white blood cell (WBC) differential - 12/20/17 13:14 Blood leukocytes automated count (number/volume) 7.6 10*3/uL 4.3-11.0 Blood erythrocytes automated count (number/volume) 3.68 10*6/uL 4.35-5.85 Venous blood hemoglobin measurement (mass/volume) 13.0 g/dL 11.5-16.0 Blood hematocrit (volume fraction) 39 % 35-52 Automated erythrocyte mean corpuscular volume 105 [foz_us] 80-99 Automated erythrocyte mean corpuscular hemoglobin (mass per erythrocyte) 35 pg 25-34 Automated erythrocyte mean corpuscular hemoglobin concentration measurement ( mass/volume) 34 g/dL 32-36 Automated erythrocyte distribution width ratio 13.1 % 10.0-14.5 Automated blood platelet count (count/volume) 199 10*3/uL 130-400 Automated blood platelet mean volume measurement 10.0 [foz_us] 7.4-10.4 Automated blood neutrophils/100 leukocytes 69 % 42-75 Automated blood lymphocytes/100 leukocytes 22 % 12-44 Blood monocytes/100 leukocytes 8 % 0-12 Automated blood eosinophils/100 leukocytes 0 % 0-10 Automated blood basophils/100 leukocytes 1 % 0-10 Blood neutrophils automated count (number/volume) 5.2 10*3 1.8-7.8 Blood lymphocytes automated count (number/volume) 1.7 10*3 1.0-4.0 Blood monocytes automated count (number/volume) 0.6 10*3 0.0-1.0 Automated eosinophil count 0.0 10*3/uL 0.0-0.3 Automated blood basophil count (count/volume) 0.0 10*3/uL 0.0-0.1 Blood lactic acid measurement (moles/volume) - 12/20/17 13:14 Blood lactic acid measurement (moles/volume) 3.50 mmol/L 0.50-2.00 Comprehensive metabolic panel - 12/20/17 13:14 Serum or plasma sodium measurement (moles/volume) 132 mmol/L 135-145 Serum or plasma potassium measurement (moles/volume) 3.8 mmol/L 3.6-5.0 Serum or plasma chloride measurement (moles/volume) 104 mmol/L 98-107 Carbon dioxide 17 mmol/L 21-32 Serum or plasma anion gap determination (moles/volume) 11 mmol/L 5-14 Serum or plasma urea nitrogen measurement (mass/volume) 8 mg/dL 7-18 Serum or plasma creatinine measurement (mass/volume) 0.84 mg/dL 0.60-1.30 Serum or plasma urea nitrogen/creatinine mass ratio 10 NRG Serum or plasma creatinine measurement with calculation of estimated glomerular filtration rate > NRG Serum or plasma glucose measurement (mass/volume) 138 mg/dL 70-105 Serum or plasma calcium measurement (mass/volume) 9.3 mg/dL 8.5-10.1 Serum or plasma total bilirubin measurement (mass/volume) 0.3 mg/dL 0.1-1.0 Serum or plasma alkaline phosphatase measurement (enzymatic activity/volume) 72 U/L 40-136 Serum or plasma aspartate aminotransferase measurement (enzymatic activity/ volume) 43 U/L 5-34 Serum or plasma alanine aminotransferase measurement (enzymatic activity/volume ) 51 U/L 0-55 Serum or plasma protein measurement (mass/volume) 6.6 g/dL 6.4-8.2 Serum or plasma albumin measurement (mass/volume) 3.7 g/dL 3.2-4.5 CALCIUM CORRECTED 9.5 mg/dL 8.5-10.1 PT panel in platelet poor plasma by coagulation assay - 12/20/17 13:14 Prothrombin time (PT) in platelet poor plasma by coagulation assay 12.8 s 12.2-14.7 INR in platelet poor plasma or blood by coagulation assay 1.0 0.8-1.4 Serum or plasma ethanol measurement (mass/volume) - 12/20/17 13:14 Serum or plasma ethanol measurement (mass/volume) < mg/dL <10 Bacterial blood culture - 12/20/17 13:14 Bacterial blood culture NG NRG Bacterial blood culture - 12/20/17 13:36 Bacterial blood culture NG NRG Serum or plasma lactate measurement (moles/volume) - 12/20/17 15:21 Serum or plasma lactate measurement (moles/volume) 1.54 mmol/L 0.50-2.00 Complete blood count (CBC) with automated white blood cell (WBC) differential - 12/21/17 08:38 Blood leukocytes automated count (number/volume) 4.6 10*3/uL 4.3-11.0 Blood erythrocytes automated count (number/volume) 3.43 10*6/uL 4.35-5.85 Venous blood hemoglobin measurement (mass/volume) 11.8 g/dL 11.5-16.0 Blood hematocrit (volume fraction) 36 % 35-52 Automated erythrocyte mean corpuscular volume 106 [foz_us] 80-99 Automated erythrocyte mean corpuscular hemoglobin (mass per erythrocyte) 34 pg 25-34 Automated erythrocyte mean corpuscular hemoglobin concentration measurement ( mass/volume) 33 g/dL 32-36 Automated erythrocyte distribution width ratio 13.5 % 10.0-14.5 Automated blood platelet count (count/volume) 187 10*3/uL 130-400 Automated blood platelet mean volume measurement 9.9 [foz_us] 7.4-10.4 Automated blood neutrophils/100 leukocytes 37 % 42-75 Automated blood lymphocytes/100 leukocytes 49 % 12-44 Blood monocytes/100 leukocytes 12 % 0-12 Automated blood eosinophils/100 leukocytes 2 % 0-10 Automated blood basophils/100 leukocytes 1 % 0-10 Blood neutrophils automated count (number/volume) 1.7 10*3 1.8-7.8 Blood lymphocytes automated count (number/volume) 2.2 10*3 1.0-4.0 Blood monocytes automated count (number/volume) 0.5 10*3 0.0-1.0 Automated eosinophil count 0.1 10*3/uL 0.0-0.3 Automated blood basophil count (count/volume) 0.0 10*3/uL 0.0-0.1 Comprehensive metabolic panel - 12/21/17 08:38 Serum or plasma sodium measurement (moles/volume) 139 mmol/L 135-145 Serum or plasma potassium measurement (moles/volume) 3.5 mmol/L 3.6-5.0 Serum or plasma chloride measurement (moles/volume) 113 mmol/L 98-107 Carbon dioxide 19 mmol/L 21-32 Serum or plasma anion gap determination (moles/volume) 7 mmol/L 5-14 Serum or plasma urea nitrogen measurement (mass/volume) 6 mg/dL 7-18 Serum or plasma creatinine measurement (mass/volume) 0.74 mg/dL 0.60-1.30 Serum or plasma urea nitrogen/creatinine mass ratio 8 NRG Serum or plasma creatinine measurement with calculation of estimated glomerular filtration rate > NRG Serum or plasma glucose measurement (mass/volume) 85 mg/dL 70-105 Serum or plasma calcium measurement (mass/volume) 8.6 mg/dL 8.5-10.1 Serum or plasma total bilirubin measurement (mass/volume) 0.3 mg/dL 0.1-1.0 Serum or plasma alkaline phosphatase measurement (enzymatic activity/volume) 63 U/L 40-136 Serum or plasma aspartate aminotransferase measurement (enzymatic activity/ volume) 34 U/L 5-34 Serum or plasma alanine aminotransferase measurement (enzymatic activity/volume ) 42 U/L 0-55 Serum or plasma protein measurement (mass/volume) 5.7 g/dL 6.4-8.2 Serum or plasma albumin measurement (mass/volume) 3.5 g/dL 3.2-4.5 CALCIUM CORRECTED 9.0 mg/dL 8.5-10.1 Magnesium - 12/21/17 08:38 Magnesium 1.8 mg/dL 1.8-2.4 Serum or plasma C reactive protein measurement (mass/volume) - 12/21/17 08:38 Serum or plasma C reactive protein measurement (mass/volume) 0.14 mg /dL 0.00-0.50 Comprehensive metabolic panel - 12/22/17 06:27 Serum or plasma sodium measurement (moles/volume) 140 mmol/L 135-145 Serum or plasma potassium measurement (moles/volume) 3.7 mmol/L 3.6-5.0 Serum or plasma chloride measurement (moles/volume) 113 mmol/L 98-107 Carbon dioxide 19 mmol/L 21-32 Serum or plasma anion gap determination (moles/volume) 8 mmol/L 5-14 Serum or plasma urea nitrogen measurement (mass/volume) 4 mg/dL 7-18 Serum or plasma creatinine measurement (mass/volume) 0.66 mg/dL 0.60-1.30 Serum or plasma urea nitrogen/creatinine mass ratio 6 NRG Serum or plasma creatinine measurement with calculation of estimated glomerular filtration rate > NRG Serum or plasma glucose measurement (mass/volume) 84 mg/dL 70-105 Serum or plasma calcium measurement (mass/volume) 8.5 mg/dL 8.5-10.1 Serum or plasma total bilirubin measurement (mass/volume) 0.2 mg/dL 0.1-1.0 Serum or plasma alkaline phosphatase measurement (enzymatic activity/volume) 60 U/L 40-136 Serum or plasma aspartate aminotransferase measurement (enzymatic activity/ volume) 41 U/L 5-34 Serum or plasma alanine aminotransferase measurement (enzymatic activity/volume ) 41 U/L 0-55 Serum or plasma protein measurement (mass/volume) 5.6 g/dL 6.4-8.2 Serum or plasma albumin measurement (mass/volume) 3.1 g/dL 3.2-4.5 CALCIUM CORRECTED 9.2 mg/dL 8.5-10.1 Magnesium - 12/22/17 06:27 Magnesium 1.9 mg/dL 1.8-2.4 Serum or plasma C reactive protein measurement (mass/volume) - 12/22/17 06:27 Serum or plasma C reactive protein measurement (mass/volume) 0.17 mg /dL 0.00-0.50 Complete blood count (CBC) with automated white blood cell (WBC) differential - 12/22/17 07:02 Blood leukocytes automated count (number/volume) 4.7 10*3/uL 4.3-11.0 Blood erythrocytes automated count (number/volume) 3.29 10*6/uL 4.35-5.85 Venous blood hemoglobin measurement (mass/volume) 11.5 g/dL 11.5-16.0 Blood hematocrit (volume fraction) 35 % 35-52 Automated erythrocyte mean corpuscular volume 105 [foz_us] 80-99 Automated erythrocyte mean corpuscular hemoglobin (mass per erythrocyte) 35 pg 25-34 Automated erythrocyte mean corpuscular hemoglobin concentration measurement ( mass/volume) 33 g/dL 32-36 Automated erythrocyte distribution width ratio 13.2 % 10.0-14.5 Automated blood platelet count (count/volume) 175 10*3/uL 130-400 Automated blood platelet mean volume measurement 9.8 [foz_us] 7.4-10.4 Automated blood neutrophils/100 leukocytes 32 % 42-75 Automated blood lymphocytes/100 leukocytes 51 % 12-44 Blood monocytes/100 leukocytes 13 % 0-12 Automated blood eosinophils/100 leukocytes 2 % 0-10 Automated blood basophils/100 leukocytes 1 % 0-10 Blood neutrophils automated count (number/volume) 1.5 10*3 1.8-7.8 Blood lymphocytes automated count (number/volume) 2.4 10*3 1.0-4.0 Blood monocytes automated count (number/volume) 0.6 10*3 0.0-1.0 Automated eosinophil count 0.1 10*3/uL 0.0-0.3 Automated blood basophil count (count/volume) 0.1 10*3/uL 0.0-0.1 Bacterial blood culture - 12/30/17 17:58 Bacterial blood culture NG NRG Bacterial blood culture - 12/30/17 18:20 Bacterial blood culture NG NRG Encounters ACCT No. Visit Date/Time Discharge Status Pt. Type Provider Facility Loc./Unit Complaint [id number] 08/25/2014 15:28:00 08/25/2014 23:59:59 CLS Outpatient VALERIE ZAVALA APRN [id number] 07/14/2014 09:55:00 07/14/2014 23:59:59 CLS Outpatient MILAN RAMIREZKARO [facility] [id number] 05/31/2014 09:29:00 05/31/2014 23:59:59 CLS Outpatient VALERIE ZAVALA APRN [id number] 05/31/2014 09:29:00 05/31/2014 23:59:59 CLS Outpatient VALERIE ZAVALA APRN [id number] 04/07/2014 12:21:00 04/07/2014 23:59:59 CLS Outpatient VALERIE ZAVALA APRN [id number] 04/07/2014 12:21:00 04/07/2014 23:59:59 CLS Outpatient MILAN DO KARO Gonsalez [id number] 02/18/2014 13:43:00 02/18/2014 23:59:59 CLS Outpatient SALLY SUPERVISOR WINTERADRIANA S [id number] 01/23/2014 17:27:00 01/23/2014 23:59:59 CLS Outpatient MILAN RAMIREZ KARO Gonsalez [id number] 12/03/2013 09:16:00 12/03/2013 23:59:59 CLS Outpatient SALLY SUPERVISOR WINTERSERINAVALERIE S [id number] 12/03/2013 09:16:00 12/03/2013 23:59:59 CLS Outpatient SALLY SUPERVISOR WINTERSERINAVALERIE S [id number] 10/17/2013 13:45:00 10/17/2013 23:59:59 CLS Outpatient SALLY SUPERVISOR WINTERSERINAVALERIE S [id number] 09/09/2013 10:47:00 09/09/2013 23:59:59 CLS Outpatient SALLY SUPERVISOR WINTERSERINAVALERIE S [id number] 06/04/2013 10:50:00 06/04/2013 23:59:59 CLS Outpatient SALLY SUPERVISOR WINTERSERINAVALERIE S [id number] 06/04/2013 10:50:00 06/04/2013 23:59:59 CLS Outpatient SALLY SUPERVISOR WINTERSERINAVALERIE S [id number] 05/07/2013 11:28:00 05/07/2013 23:59:59 CLS Outpatient SALLY SUPERVISOR WINTERSERINAVALERIE S [id number] 04/10/2013 16:12:00 04/10/2013 23:59:59 CLS Outpatient SALLY SUPERVISOR WINTERSERINAVALERIE S [id number] 04/10/2013 16:12:00 04/10/2013 23:59:59 CLS Outpatient YATES DOKARO [id number] 04/06/2013 11:17:00 04/06/2013 23:59:59 CLS Outpatient MILAN KARO [id number] 04/02/2013 10:20:00 04/02/2013 23:59:59 CLS Outpatient SALLY SUPERVISOR WINTERSERINAVALERIE S [id number] 02/04/2013 11:19:00 02/04/2013 23:59:59 CLS Outpatient MICHELLE CAMARGO MD [id number] 02/04/2013 11:19:00 02/04/2013 23:59:59 CLS Outpatient VALERIE ZAVALA APRN [id number] 08/10/2012 09:19:00 08/10/2012 23:59:59 CLS Outpatient KARO YATES DO [id number] 07/30/2012 08:25:00 07/30/2012 23:59:59 CLS Outpatient SALLY PERSAUDNVALERIE S [id number] 07/04/2012 13:20:00 07/04/2012 23:59:59 CLS Outpatient SALLY PERSAUDNVALERIE S [id number] 06/29/2012 08:10:00 06/29/2012 23:59:59 CLS Outpatient KARO YATES DO [facility] [id number] 06/13/2012 14:07:00 06/13/2012 23:59:59 CLS Outpatient VALERIE ZAVALA APRN [id number] 06/05/2012 11:37:00 06/05/2012 23:59:59 CLS Outpatient [id number] 05/29/2012 16:36:00 05/29/2012 23:59:59 CLS Outpatient ZORAIDA ESPAÑA APRN [id number] 03/30/2012 09:50:00 03/30/2012 23:59:59 CLS Outpatient KARO YATES DO [place] [id number] 02/14/2012 13:28:00 02/14/2012 23:59:59 CLS Outpatient KARO YATES DO [place] [id number] 11/13/2012 14:22:00 Document Registration [id number] 11/13/2012 14:22:00 Document Registration [id number] 09/21/2012 09:46:00 Document Registration [id number] 01/02/2015 04:06:53 ACT Document Registration [id number] 12/30/2017 21:24:00 01/01/2018 12:20:00 DIS Inpatient GINA ABRAMS, RAISSA Talley [facility] 4TH CARDIOGENIC HYPOTENSION, ABD PAIN,UTI [id number] 11/27/2017 15:12:00 11/27/2017 17:52:00 DIS Emergency BRII ABRAMS, DEB Fuller [facility] ER HIGH BP;UTI [id number] 10/05/2017 15:40:00 10/05/2017 16:50:00 DIS Emergency CYDNEY ANDERSON SUPERVISOR WINTER [facility] ER FALL;R KNEE [id number] 09/21/2017 13:41:00 09/21/2017 23:59:59 CLS Outpatient VALERIE ZAVALA [facility] RAD Z12.31 SCREENING MAMMO [id number] 09/04/2017 08:30:00 09/04/2017 23:59:59 CLS Preadmit AUDIE ROBISON MD [facility] ENDO GERD/WT LOSS [id number] 08/28/2017 05:38:00 08/28/2017 09:34:00 DIS Outpatient AUDIE ROBISON MD [facility] PREOP EGD [id number] 06/01/2017 14:47:00 06/01/2017 23:59:59 CLS Outpatient VALERIE ZAVALA [facility] RAD R31.9 HEMATURIA [id number] 05/16/2017 11:28:00 05/16/2017 23:59:59 CLS Outpatient VALERIE ZAVALA [facility] RAD R10.31 RIGHT LOWER QUADRANT ABDOMINAL PAIN [id number] 02/08/2017 14:15:00 02/08/2017 23:59:59 CLS Outpatient SEDRICK DOBSON SUPERVISOR WINTER [facility] LAB R10.31 [id number] 09/18/2016 11:44:00 09/18/2016 15:05:00 DIS Emergency MAYCO ABRAMS, THANH June [facility] ER ABD PAIN [id number] 08/21/2016 17:56:00 08/21/2016 20:28:00 DIS Emergency LORETO TIPTON DO [facility] ER UTI SYMPTOMS [id number] 07/08/2016 15:53:00 07/08/2016 17:45:00 DIS Emergency BINU JAVIER MD [facility] ER UTI SX [id number] 06/25/2016 13:23:00 06/25/2016 14:34:00 DIS Emergency ANDREW KANG [facility] ER UTI SYMPTOMS [id number] 06/23/2016 05:59:00 06/23/2016 23:59:59 CLS Outpatient AUDIE ROBISON MD [facility] PREOP GERD [id number] 06/02/2016 01:23:00 06/03/2016 12:15:00 DIS Inpatient RAISSA FUENTES MD [facility] ICU COPD EXACERBATION [id number] 05/29/2016 15:59:00 05/29/2016 18:15:00 DIS Emergency CYDNEY ANDERSON APRN [facility] ER COUGH/DIFF BREATHING/ WEAKNESS [id number] 10/23/2015 08:47:00 10/23/2015 23:59:59 CLS Outpatient VALERIE ZAVALA [facility] RAD RUQ ABD PAIN [id number] 10/23/2015 13:52:00 10/23/2015 16:58:00 DIS Emergency MIKAELA MIN MD [facility] ER ABD PAIN [id number] 08/12/2015 13:46:00 08/12/2015 23:59:59 CLS Preadmit VALERIE ZAVALA [facility] REHAB [id number] 03/31/2015 12:24:00 03/31/2015 23:59:59 CLS Outpatient ALBARO PARADA MD [facility] RAD LUMBAR RADICULOPATHY [id number] 01/07/2015 06:00:00 01/10/2015 11:06:00 DIS Inpatient ALBARO PARADA MD [facility] SURGICAL RIGHT KNEE SEVERE OSTEOARTHRITIS [id number] 01/01/2015 09:52:00 01/01/2015 23:59:59 CLS Outpatient ALBARO PARADA MD [facility] PREOP RIGHT KNEE SEVERE OSTEOARTHRITIS [id number] 11/03/2014 07:51:00 11/03/2014 16:15:00 DIS Outpatient DOLORES DPM, SHERI Q [facility] SDC HAMMER TOE LT GREAT TOE [id number] 10/29/2014 10:29:00 10/29/2014 23:59:59 CLS Outpatient DOLORES DPM, SHERI Q [facility] PREOP HAMMERTOE LEFT FOOT [id number] 06/11/2014 09:17:00 06/11/2014 23:59:59 CLS Outpatient VALERIE ZAVALA [facility] RAD RIGHT FLANK PAIN FOR 3 MONTHS [id number] 05/23/2014 08:31:00 05/23/2014 23:59:59 CLS Outpatient BALTAZAR COTTER DO D [facility] CARD RUQ PAIN [id number] 04/22/2014 09:15:00 04/22/2014 23:59:59 CLS Outpatient VALERIE ZAVALA [facility] RAD MID EPIGASTRIC PAIN, RADIATING TO RT [id number] 02/26/2014 14:09:00 02/26/2014 16:55:00 DIS Emergency MIKE NICHOLSON [facility] ER RIGHT FLANK PAIN [id number] 10/23/2013 08:33:00 10/23/2013 23:59:59 CLS Outpatient SEDRICK DOBOSN APRN [facility] RAD UNCONTROLLED BP [id number] 09/20/2013 13:33:00 09/20/2013 23:59:59 CLS Outpatient VALERIE ZAVALA [facility] RAD UNCONTROLLED BLOOD PRESSURE [id number] 12/28/2017 14:02:00 Document Registration [id number] 12/20/2017 13:25:00 Document Registration [id number] 10/29/2014 10:48:00 Document Registration [id number] 10/29/2014 10:48:00 Document Registration [id number] 10/29/2014 10:48:00 Document Registration [id number] 10/29/2014 10:42:00 Document Registration [id number] 06/28/2012 15:25:00 Document Registration [id number] 06/25/2012 10:52:00 Document Registration [id number] 02/20/2012 05:51:00 Document Registration [id number] 02/14/2012 11:58:00 Document Registration [id number] 12/05/2011 11:16:00 Document Registration [id number] 10/03/2011 13:46:00 Document Registration [id number] 09/18/2011 15:35:00 Document Registration [id number] 07/10/2011 13:03:00 Document Registration [id number] 07/06/2011 18:15:00 Document Registration [id number] 06/16/2011 08:58:00 Document Registration [id number] 04/26/2011 05:37:00 Document Registration [id number] 04/20/2011 09:35:00 Document Registration [id number] 02/27/2011 19:11:00 Document Registration [id number] 01/31/2011 14:13:00 Document Registration [id number] 11/07/2010 19:22:00 Document Registration [id number] 10/11/2010 14:04:00 Document Registration [id number] 09/06/2010 17:52:00 Document Registration [id number] 08/23/2010 11:02:00 Document Registration [id number] 08/18/2010 06:59:00 Document Registration [id number] 05/20/2010 10:20:00 Document Registration [id number] 10/30/2009 09:41:00 Document Registration [id number] 05/03/2016 08:06:00 Document Registration [id number] 11/28/2017 15:00:00 11/28/2017 23:59:59 [facility] Outpatient VALERIE ZAVALA APRN [facility] [id number] 11/27/2017 11:40:00 Document Registration [id number] 10/30/2017 16:40:00 Document Registration [id number] 09/20/2017 13:40:00 Document Registration [id number] 05/03/2017 11:20:00 Document Registration [id number] 04/19/2017 10:40:00 Document Registration [id number] 03/23/2017 12:20:00 Document Registration
== END 2018-01-01 12:20 | disposition home or self-care (01) ==
LOC: EDUNIT# 17:50 → ER 17:52 → UNDOADMOB 21:24 → 4TH 21:24 → SDC 21:50 → 4TH 21:50 → SDC 01-01 12:20 → UNDODISOB 01-01 12:20
PROVIDERS: ATTEND Family Medicine
DX: I95.9 Hypotension, unspecified (principal); R00.1 Bradycardia, unspecified; E87.6 Hypokalemia; R10.9 Unspecified abdominal pain; F43.10 Post-traumatic stress disorder, unspecified; K58.9 Irritable bowel syndrome, unspecified; I10 Essential (primary) hypertension; N39.0 Urinary tract infection, site not specified; R31.9 Hematuria, unspecified; K59.00 Constipation, unspecified; K21.0 Gastro-esophageal reflux disease with esophagitis; K25.3 Acute gastric ulcer without hemorrhage or perforation; K31.89 Other diseases of stomach and duodenum; J44.9 Chronic obstructive pulmonary disease, unspecified; F17.210 Nicotine dependence, cigarettes, uncomplicated; Z96.651 Presence of right artificial knee joint; I65.23 Occlusion and stenosis of bilateral carotid arteries; Z79.899 Other long term (current) drug therapy
CPT/HCPCS: 36415; 71045; 74176; 76705; 80048; 80053; 80306; 81000; 83605; 84484; 85025; 85027; 85610; 85730; 87040; 87088; 88305; 93005; 93306; 93880; 94760; 96361; 96365; 96367; 96375; G0378

== ENCOUNTER 2018-01-13 13:13 | Emergency (ER) | payer MEDICARE, MEDICAID ==
[~2018-01-13] VITALS: Ht 162.6 cm; Wt 60.3 kg
[~2018-01-13 13:13] MED LIST changes: +LANS30CA PO; +LISI-552 PO; +METH500T7 PO; +NITR100C PO; +OMEP20TA33 PO; +SUCR1TAB36 PO
--- OUTSIDE RECORDS SUMMARY | 2018-01-13 13:20 | XMS REPORT ---
Author Author VALERIE ZAVALA [facility] Address [address] [place] [address] Care Team Providers Care Manager Systems Name Role Phone VALERIE ZAVALA Unavailable PROBLEMS Type Condition ICD9-CM Code RMY01-QP Code Onset Dates Condition Status SNOMED Code Problem Generalized anxiety disorder F41.1 Active 44992085 Problem Hypokalemia E87.6 Active 657400334 Problem Right low back pain, with sciatica presence unspecified M54.5 Active 368090901 Problem Pain in right knee M25.561 Active 71097758 Problem Gastroesophageal reflux disease without esophagitis K21.9 Active 611268801 Problem UTI symptoms R39.9 Active 23466837 Problem Essential hypertension I10 Active 37114449 Problem Right foot pain M79.671 Active 92201363 Problem Neuropathy G62.9 Active 352051045 Problem Other emphysema J43.8 Active 07351007 Problem Anxiety F41.9 Active 12462170 Problem Opioid use disorder, moderate, dependence F11.20 Active 06579186 Problem Other chronic pain G89.29 Active 05632264 Problem Bone pain M89.8X9 Active 37936697 Problem Chronic pain G89.29 Active 63527538 Problem Back pain M54.9 Active 079396517 Problem Kidney stones N20.0 Active 87418687 Problem Panic attacks F41.0 Active 768824134 Problem Generalized abdominal pain R10.84 Active 952113019 Problem Renal calculus, right N20.0 Active 54989717 Problem Tobacco abuse Z72.0 Active 67033004 Problem Right upper quadrant abdominal pain R10.11 Active 509705071 Problem Depression, unspecified depression type F32.9 Active 99301072 Problem Weight decrease R63.4 Active 493089216 Problem Pulmonary emphysema, unspecified emphysema type J43.9 Active 41713647 Problem Post-traumatic stress disorder, chronic F43.12 Active 51698219 Problem Weight loss R63.4 Active 098880781 Problem Insomnia, unspecified type G47.00 Active 300151550 ALLERGIES Substance Reaction Event Type Date Status Sulfur rash Drug Allergy Oct, Active Remeron itching Drug Allergy Oct, Active Morphine Sulfate nausea Drug Allergy Oct, Active Demerol Unknown Drug Allergy Oct, Active Fentanyl 25 Mcg/hr Patch 72 Hr Unknown Non Drug Allergy Oct, Active ENCOUNTERS Encounter Location Date Diagnosis [place] [id number] [place] [address] 12112- 5268 14 Dec, 2017 [place] [id number] [place] [address] 94093- 9218 13 Dec, 2017 [place] [address] 25451- 7340 Dec, Medicare welcome exam Z00.00 [place] [id number] [place] [address] 08936- 1133 17 Nov, 2017 Opioid use disorder, moderate, dependence F11.20 [place] [id number] [place] [address] 29706- 2457 16 Nov, 2017 Pelvic pain R10.2 ; Acute pyelonephritis N10 and Essential hypertension I10 [place] [id number] [place] [address] 64277- 9304 28 Oct, 2017 Medicare welcome exam Z00.00 [place] [id number] [place] [address] 67780- 7827 Oct, Gross hematuria R31.0 ; Urinary tract infection without hematuria, site unspecified N39.0 and Weakness R53.1 [place] [id number] [place] [address] 49804- 2317 13 Oct, 2017 [place] [id number] [place] [address] 05035- 2743 Oct, [place] [id number] [place] [address] 15627- 8212 Oct, Medicare welcome exam Z00.00 [place] [id number] [place] [address] 70341- 6060 September, Back pain M54.9 and Right anterior knee pain M25.561 [facility] [id number] [place] [address] 20701- 4982 September, [facility] [id number] [place] [address] 78007- 0341 September, [facility] [id number] [place] [address] 42385- 9188 September, Essential hypertension I10 [facility] [id number] [place] [address] 68744- 3613 September, [facility] [id number] [place] [address] 31018- 8990 September, RLQ abdominal pain R10.31 ; Low back pain M54.5 and Other chronic pain G89.29 [facility] [id number] [place] [address] 84101- 4371 Aug, Medicare welcome exam Z00.00 [facility] [id number] [place] [address] 57881- 8992 Aug, [facility] [id number] [place] [address] 70871- 2717 Aug, Acute pyelonephritis N10 and Medicare welcome exam Z00.00 [facility] [address] [place] [address] 41012 -5670 Aug, Dysuria R30.0 and Acute pyelonephritis N10 [facility] [id number] [place] [address] 89395- 8930 Aug, [facility] [id number] [place] [address] 23250- 5421 Aug, [facility] [id number] [place] [address] 13390- 9039 Aug, [facility] [address] [place] [address] 1614 Aug, [facility] [id number] [place] [address] 17735- 2605 Jul, [facility] [id number] [place] [address] 77542- 7892 Jul, Renal calculus, right N20.0 and Medicare welcome exam Z00.00 [facility] [id number] [place] [address] 23037 -7052 Jul, Dysuria R30.0 and Renal calculus, right N20.0 [facility] [id number] [place] [address] 61657- 2496 Jul, Medicare welcome exam Z00.00 [facility] [id number] [place] [address] 38797- 0193 Jun, Gastroesophageal reflux disease without esophagitis K21.9 and Generalized abdominal pain R10.84 [facility] [address] [place] [address] 41667- 9164 Jun, Medicare welcome exam Z00.00 [facility] [id number] [place] [address] 41175- 3816 Jun, [facility] [address] [place] [address] 97352- 4392 Jun, Medicare welcome exam Z00.00 and Encounter for screening mammogram for malignant neoplasm of breast Z12.31 [facility] [address] [address]- 8997 Jun, Chronic pain G89.29 [facility] [id number] [place] [address] 37934- 5723 May, [facility] [id number] [place] [address] 67436- 2841 May, Pelvic pain R10.2 [facility] [id number] [place] [address] 59158- 6223 May, Pelvic pain R10.2 [facility] [id number] [place] [address] 43635 -5357 May, Renal calculus, right N20.0 [facility] [id number] [place] [address] 89078- 8153 May, Hematuria, unspecified type R31.9 and Nephrolithiasis N20.0 [facility] [place] [id number] [place] [address] 95218 -0644 May, Dysuria R30.0 and Nephrolithiasis N20.0 [place] [id number] [place] [address] 38881- 3214 May, [facility] [id number] [place] [address] 16466 -1269 May, Abdominal pain R10.9 and Kidney stone N20.0 [place] [id number] [place] [address] 80770- 5885 May, [place] [id number] [place] [address] 76567- 4164 May, Chronic pain G89.29 and Panic attacks F41.0 [place] [id number] [place] [address] 96761- 1674 May, Urinary tract infection without hematuria, site unspecified N39.0 [place] [id number] [place] [address] 48150- 5558 Apr, Right lower quadrant abdominal pain R10.31 and Abnormal serum lipase level R74.8 [place] [id number] [place] [address] 97297- 6000 Apr, Recurrent urinary tract infection N39.0 [place] [id number] [place] [address] 26589- 8541 Apr, UTI symptoms R39.9 ; Recurrent urinary tract infection N39.0 and Pelvic pain R10.2 [place] [address] [place] [address] 03183- 5676 08 Apr, 2017 Chronic pain G89.29 and Panic attacks F41.0 [place] [id number] [place] [address] 17330- 7680 Apr, Dysuria R30.0 [place] [id number] [place] [address] 54145- 9402 Apr, [facility] [id number] [place] [address] 14423- 6803 Apr, Dysuria R30.0 and Urinary tract infection without hematuria , site unspecified N39.0 [place] [id number] [place] [address] 16971- 6090 Mar, UTI symptoms R39.9 [place] [id number] [place] [address] 38659- 4857 Mar, [place] [id number] [place] [address] 46448- 9621 Mar, Panic attacks F41.0 and Chronic pain G89.29 [place] [id number] [place] [address] 12769- 7764 Mar, [place] [id number] [place] [address] 61342- 5609 Mar, Dysuria R30.0 [place] [id number] [place] [address] 54954- 6618 Mar, Dysuria R30.0 [place] [id number] [place] [address] 43569- 8465 Feb, Chronic pain G89.29 ; Shortness of breath R06.02 ; Weight loss R63.4 ; Encounter for immunization Z23 ; Bone pain M89.8X9 ; Right anterior knee pain M25.561 and Cough R05 [place] [id number] [place] [address] 55308- 8305 Feb, Shortness of breath R06.02 [facility] [id number] [place] [address] 57599- 0928 Feb, [place] [id number] [place] [address] 36182- 9894 Feb, Panic attacks F41.0 and Chronic pain G89.29 [place] [address] 18104- 4745 Feb, [place] [address] 19044- 0235 Feb, Panic attacks F41.0 ; Shortness of breath R06.02 and Encounter for immunization Z23 [place] [id number] [place] [address] 47009- 1095 Jan, [place] [address] 20218- 6752 Jan, Anxiety F41.9 and Chronic pain G89.29 [place] [address] 39969- 3720 Dec, Anxiety F41.9 and Chronic pain G89.29 [place] [id number] [place] [address] 45733- 4465 Nov, Chronic pain G89.29 [place] [id number] [place] [address] 68891- 9926 Nov, Anxiety F41.9 [place] [address] 88165- 9094 Nov, Chronic pain G89.29 ; Essential hypertension I10 and Other emphysema J43.8 [place] [id number] [place] [address] 33095- 4673 Oct, Anxiety F41.9 [place] [id number] [place] [address] 29588- 4532 Oct, [place] [id number] [place] [address] 15067- 6158 Oct, Chronic pain G89.29 [facility] [id number] [place] [address] 85644- 7525 September, Recurrent UTI N39.0 ; Neuropathy G62.9 and Anxiety F41.9 [facility] [id number] [place] [address] 26127- 6560 September, [facility] [id number] [place] [address] 81953- 7087 September, Chronic pain G89.29 [facility] [id number] [place] [address] 91360- 1895 September, [facility] [id number] [place] [address] 77494- 1660 Aug, Post-traumatic stress disorder, chronic F43.12 ; Chronic urinary tract infection N39.0 ; Gastroesophageal reflux disease without esophagitis K21.9 ; Chronic pain G89.29 ; Essential hypertension I10 and Tobacco abuse Z72.0 [facility] [id number] [place] [address] 84468 -5167 Aug, [facility] [id number] [place] [address] 56709- 3101 Aug, Chronic pain G89.29 [facility] [id number] [place] [address] 49029- 1343 Aug, Insomnia, unspecified type G47.00 [facility] [id number] [place] [address] 76003- 8918 Aug, [facility] [id number] [place] [address] 59381- 9968 Jul, Chronic pain G89.29 [facility] [id number] [place] [address] 11910- 0092 Jul, [facility] [id number] [place] [address] 13508- 0858 Jul, [facility] [address] [address]- 9873 Jul, [facility] [address] [place] [address] 89939- 6272 15 Jul, 2016 Recurrent UTI (urinary tract infection) N39.0 [facility] [address] [place] [address] 23699- 1085 Jul, [facility] [address] [place] [address] 61728- 2319 Jun, Chronic pain G89.29 [facility] [id number] [place] [address] 55050- 2794 Jun, [facility] [address] [place] [address] 53496- 5376 Jun, [facility] [id number] [place] [address] 54482- 6841 May, Chronic pain G89.29 [facility] [address] [place] [address] 00122- 9611 May, Weight loss R63.4 and Shortness of breath R06.02 [facility] [address] [address]- 1409 May, Chronic pain G89.29 ; Weight loss R63.4 and Tobacco abuse Z72.0 [facility] [address] [address]- 2117 May, [facility] [address] [place] [address] 80396- 3742 May, Hypoxia R09.02 [facility] [address] [address]- 5020 May, [facility] [address] [address]- 3080 May, Pulmonary emphysema, unspecified emphysema type J43.9 [facility] [address] [place] [address] 46907 -4595 May, [facility] [id number] [place] [address] 14379- 7101 May, [facility] [id number] [place] [address] 81631- 7742 May, [facility] [address] 33505- 7506 May, Chronic pain G89.29 ; Encounter for immunization Z23 ; Right anterior knee pain M25.561 and Cough R05 [place] [address] 48677- 5878 Apr, Chronic pain G89.29 [facility] [id number] [place] [address] 17402- 5631 Apr, [facility] [id number] [place] [address] 99529- 0382 Apr, Generalized anxiety disorder F41.1 and Depression, unspecified depression type F32.9 [facility] [id number] [place] [address] 10994- 3149 Apr, Chronic pain G89.29 ; Hypokalemia E87.6 and Insomnia, unspecified type G47.00 [facility] [id number] [place] [address] 46159- 5257 Apr, [facility] [id number] [place] [address] 44231- 9344 Apr, Chronic pain G89.29 [facility] [id number] [place] [address] 79683- 2359 Apr, [facility] [id number] [place] [address] 82136- 1841 Mar, [facility] [id number] [place] [address] 80164- 5333 08 Nov, 2016 Insomnia, unspecified type G47.00 [facility] [id number] [address]- 4294 Mar, Chronic pain G89.29 [facility] [address] [address]- 2289 Mar, [facility] [address] [address]- 5351 Feb, [facility] [address] [facility] [id number] [place] [address] 97051- 2103 Feb, [facility] [id number] [address]- 3399 Feb, [facility] [id number] [place] [address] 42685- 9242 Feb, [facility] [address] [place] [address] 59447- 2481 Feb, [facility] [address] [address]- 1482 29 Jan, 2016 [facility] [address] [place] [address] 76886- 5872 26 Jan, 2015 [facility] [address] [address]- 254 20 Jan, 2015 [facility] [address] [address] 2548 13 Sep, 2015 [facility] [id number] [address]- 2545 12 Jan, 2015 [facility] [id number] [address]- 2545 07 Sep, 2016 Chronic pain G89.29 [facility] [id number] [address]- 2542 01 Sep, 2016 Chronic pain G89.29 and Fibromyalgia M79.7 [facility] [address] [place] [address] 30779- 3923 Dec, Depression, unspecified depression type F32.9 and Generalized anxiety disorder 300.02 [facility] [id number] [place] [address] 78363- 3377 Dec, Dysthymia F34.1 ; Insomnia, unspecified type G47.00 and Chronic pain G89.29 [facility] [id number] [place] [address] 86522- 6553 Dec, Chronic pain G89.29 [facility] [id number] [place] [address] 71887- 2208 Dec, Insomnia, unspecified type G47.00 [facility] [id number] [place] [address] 97606- 7804 Dec, Fibromyalgia M79.7 and Chronic pain G89.29 [facility] [place] [id number] [place] [address] 05705- 0745 Dec, [facility] [place] [id number] [place] [address] 32570- 6468 Dec, [facility] [place] [id number] [place] [address] 01284- 3429 Dec, [facility] [place] [id number] [place] [address] 70278- 0736 Dec, [facility] [place] [id number] [place] [address] 51690- 4084 Dec, Chronic pain G89.29 [facility] [place] [id number] [place] [address] 89312- 0783 Dec, [facility] [place] [id number] [place] [address] 61757- 6390 Dec, [facility] [place] [id number] [place] [address] 55247- 3005 Dec, [facility] [place] [id number] [place] [address] 57913- 7050 Dec, Chronic pain G89.29 and Dysthymia F34.1 [facility] [id number] [place] [address] 48694- 1595 Nov, [place] [address] 16365- 3872 Nov, Hypokalemia E87.6 and Chronic pain G89.29 [place] [address] 56969- 0380 Nov, Back pain M54.9 and Pain in right knee M25.561 [facility] [id number] [place] [address] 29897- 7587 Nov, [place] [address] 51503- 7793 Nov, Chronic pain G89.29 [place] [address] 43466- 8662 Nov, Chronic pain G89.29 ; Weight loss R63.4 ; Bone pain M89.8X9 and Insomnia, unspecified type G47.00 [facility] [id number] [place] [address] 30436- 6018 Nov, Chronic pain G89.29 [facility] [id number] [place] [address] 59797- 4388 Nov, Chronic pain G89.29 [facility] [id number] [place] [address] 91810- 6173 Oct, Chronic pain G89.29 [facility] [id number] [place] [address] 16254- 5876 Oct, UTI symptoms R39.9 [place] [facility] [id number] [place] [address] 39535- 6397 Oct, Chronic pain G89.29 [place] [place] [id number] [place] [address] 40380- 7254 Oct, Chronic pain G89.29 [facility] [place] [address] [address] 7084 Oct, Chronic pain G89.29 [facility] [place] [id number] [place] [address] 65295- 2101 Oct, Right upper quadrant abdominal pain R10.11 [facility] [place] [id number] [place] [address] 97870- 7860 Oct, Chronic pain G89.29 [facility] [place] [id number] [place] [address] 62535- 9087 Oct, [facility] [place] [id number] [place] [address] 37164- 1531 September, Chronic pain G89.29 [facility] [place] [id number] [place] [address] 72019- 2810 September, Dysuria R30.0 and Urinary tract infection without hematuria , site unspecified N39.0 [facility] [place] [id number] [place] [address] 41612- 4946 September, [facility] [place] [id number] [place] [address] 73517- 1193 September, Dysuria R30.0 [facility] [place] [id number] [place] [address] 91837- 9973 September, Chronic pain G89.29 [facility] [place] [id number] [place] [address] 48923- 9227 September, Chronic pain G89.29 and Essential hypertension I10 [facility] [place] [address] [address] 1357 September, [facility] [place] [id number] [place] [address] 61361- 9681 September, [facility] [place] [address] [address] 2427 September, [facility] [place] [id number] [place] [address] 67475- 8698 Aug, UTI symptoms R39.9 [facility] [place] [id number] [place] [address] 69397- 6206 Aug, Dysuria R30.0 [facility] [place] [id number] [place] [address] 86989- 5952 Aug, [facility] [place] [id number] [place] [address] 22449- 7638 Aug, [facility] [place] [id number] [place] [address] 11913- 8724 Aug, [facility] [place] [id number] [place] [address] 65455- 1416 Aug, Chronic pain G89.29 [facility] [place] [id number] [place] [address] 44788- 6835 Aug, Dysthymia F34.1 [facility] [place] [id number] [place] [address] 92776- 9346 Aug, Conjunctivitis, unspecified conjunctivitis type, unspecified laterality H10.9 [facility] [place] [id number] [place] [address] 51505- 0821 Jul, Chronic pain G89.29 ; Back pain M54.9 ; Tobacco abuse Z72.0 and Weight decrease R63.4 [facility] [place] [id number] [place] [address] 45780- 8549 Jul, [facility] [place] [id number] [place] [address] 61534- 9287 Jul, [facility] [place] [id number] [place] [address] 64110- 5392 24 Jul, 2015 Chronic pain G89.29 [facility] [place] [id number] [place] [address] 61842- 9545 Jul, [facility] [place] [id number] [place] [address] 34846- 2921 21 Jul, 2015 [facility] [place] [address] [address]- 1513 18 Jul, 2015 [facility] [place] [id number] [place] [address] 97577- 9830 Jul, [facility] [place] [id number] [place] [address] 78456- 3239 Jul, Chronic pain G89.29 [facility] [place] [id number] [place] [address] 74589- 1288 16 Jul, 2015 Chronic pain G89.29 [facility] [place] [id number] [place] [address] 31186- 5830 15 Jul, 2015 [facility] [place] [id number] [place] [address] 94657- 2729 Jul, [facility] [place] [id number] [place] [address] 95703- 9753 Jul, [facility] [place] [id number] [place] [address] 65840- 4152 Jul, [facility] [place] [id number] [place] [address] 05745- 9625 Jun, [facility] [place] [id number] [place] [address] 99965- 0784 Jun, Depression, unspecified depression type F32.9 [facility] [place] [id number] [place] [address] 04320- 6596 Jun, Pain in right knee M25.561 [facility] [place] [id number] [place] [address] 23268- 9281 24 Jun, 2015 Chronic pain G89.29 ; Back pain M54.9 ; Bone pain M89.8X9 and Weight loss R63.4 [facility] [place] [address] [address]- 7331 Jun, [facility] [place] [id number] [place] [address] 54956- 5375 May, [facility] [place] [id number] [place] [address] 18233- 0256 May, UTI symptoms R39.9 ; Pain in right knee M25.561 ; Right low back pain, with sciatica presence unspecified M54.5 ; Right foot pain M79.671 ; Hypokalemia E87.6 and Screening, lipid Z13.220 [facility] [place] [address] 02562- 1210 May, [facility] [place] [address] 31322- 2695 May, [facility] [place] [id number] [place] [address] 89389- 2752 Mar, [facility] [id number] [place] [address] 30724- 7304 Mar, [facility] [place] [id number] [place] [address] 89256- 5318 Mar, Hypokalemia E87.6 [facility] [id number] [place] [address] 14345- 8204 Mar, Pain in right leg M79.604 ; Encounter for immunization Z23 ; Pain in right knee M25.561 and Hypokalemia E87.6 [facility] [id number] [place] [address] 48529- 6003 Jan, [facility] [place] [id number] [place] [address] 84760- 2541 Jan, [facility] [id number] [place] [address] 83544- 7455 Jan, Abdominal pain, generalized 789.07 [facility] [id number] [place] [address] 85526- 7153 Jan, Abdominal pain, generalized 789.07 [facility] [address] [place] [address]- 4054 Dec, [facility] [place] [address] [address]- 2406 Dec, [facility] [place] [address] [address]- 9796 Dec, [facility] [place] [address] [address]- 9448 Nov, Hallux valgus 735.0 and Hammertoe 735.4 [facility] [place] [address] [facility] [id number] [address]- 6875 Nov, [facility] [place] [id number] [address]- 6210 Nov, Hallux valgus 735.0 and Hammer toe 735.4 [facility] [place] [address] [address]- 5905 Oct, [facility] [place] [address] [address]- 6712 Oct, [facility] [place] [id number] [place] [address] 79336- 1626 Oct, Pre-op evaluation V72.84 [facility] [place] [address] [address]- 1252 Oct, [facility] [place] [address] [address]- 7951 Oct, [facility] [place] [id number] [address]- 1769 September, [facility] [place] [address] [address]- 6206 September, [facility] [place] [id number] [address]- 4911 September, Hallux valgus (acquired) 735.0 and Other hammer toe ( acquired) 735.4 [facility] [place] [facility] [address] [id number] [place] [address]- 6601 14 Aug, 2014 [facility] [place] [facility] [address] [id number] [place] [address]- 2493 Aug, [facility] [place] [facility] [address] [id number] [place] [address]- 7849 Jul, [facility] [place] [facility] [address] [id number] [place] [address]- 6932 Jul, [facility] [place] [facility] [address] [id number] [place] [address]- 9592 Jul, [facility] [place] [facility] [address] [id number] [place] [address]- 3900 Jul, [facility] [place] [facility] [address] [id number] [place] [address]- 6373 Jul, [facility] [place] [facility] [address] [id number] [place] [address]- 2228 Jul, [facility] [place] [facility] [address] [id number] [place] [address]- 2104 Jul, [facility] [place] [facility] [address] [id number] [place] [address]- 7795 Jul, [facility] [place] [facility] [address] [id number] [place] [address]- 6093 Jun, [facility] [place] [facility] [address] [id number] [place] [address]- 4579 Jun, [facility] [place] [facility] [address] [id number] [place] [address]- 6413 Jun, [facility] [place] [facility] [address] [id number] [place] [address]- 2838 Jun, [facility] [place] [facility] [address] [id number] [place] [address]- 6256 Jun, [facility] [place] [facility] [address] [id number] [place] [address]- 3101 Jun, [facility] [place] [facility] [address] [id number] [place] [address]- 5350 Jun, [facility] [place] [facility] [address] [id number] [place] [address]- 8766 Jun, [facility] [place] [facility] [address] [id number] [place] [address]- 2996 Jun, [facility] [place] [facility] [address] [id number] [place] [address]- 4407 Jun, [facility] [place] [facility] [address] [id number] [place] [address]- 3101 May, [facility] [place] [facility] [address] [id number] [place] [address]- 3918 May, [facility] [place] [facility] [address] [id number] [place] [address]- 2033 May, [facility] [place] [facility] [address] [id number] [place] [address]- 7547 May, [facility] [place] [facility] [address] [id number] [place] [address]- 2726 May, [facility] [place] [facility] [address] [id number] [place] [address]- 7514 May, [facility] [place] [facility] [address] [id number] [place] [address]- 7150 May, [facility] [place] [facility] [address] [id number] [place] [address]- 5228 May, [facility] [place] [facility] [address] [id number] [place] [address]- 1707 May, [facility] [place] [facility] [address] [id number] [place] [address]- 3951 May, [facility] [place] [facility] [address] [id number] [place] [address]- 8112 May, [facility] [place] [facility] [address] [id number] [place] [address]- 0390 May, [facility] [place] [facility] [address] [id number] [place] [address]- 4475 May, [facility] [place] [facility] [address] [id number] [place] [address]- 4482 May, [facility] [place] [facility] [address] [id number] [place] [address]- 2333 May, [facility] [place] [facility] [address] [id number] [place] [address]- 7717 May, [facility] [place] [facility] [address] [id number] [place] [address]- 5480 May, [facility] [place] [facility] [address] [id number] [place] [address]- 7778 May, [facility] [place] [facility] [address] [id number] [place] [address]- 9011 Apr, [facility] [place] [facility] [address] [id number] [place] [address]- 5916 Apr, [facility] [place] [facility] [address] [id number] [place] [address]- 4076 Apr, [facility] [place] [facility] [address] [id number] [place] [address]- 4959 Apr, [facility] [place] [facility] [address] [id number] [place] [address]- 3163 Apr, [facility] [place] [facility] [address] [id number] [place] [address]- 3124 Apr, [facility] [place] [facility] [address] [id number] [place] [address]- 2630 Apr, [facility] [place] [facility] [address] [id number] [place] [address]- 3948 Apr, [facility] [place] [facility] [address] [id number] [address]- 1062 Apr, [facility] [place] [facility] [address] [id number] [place] [address]- 5228 Mar, [facility] [place] [facility] [address] [id number] [place] 7066 Mar, [facility] [place] [facility] [address] [id number] [place] [address]- 7600 Mar, [facility] [place] [facility] [address] [id number] [place] [address]- 0363 Mar, [facility] [place] [facility] [address] [id number] [place] [address]- 3667 Mar, [facility] [place] [facility] [address] [id number] [place] [address]- 3867 Feb, [facility] [place] [facility] [address] [id number] [place] [address]- 3743 Feb, [facility] [place] [facility] [address] [id number] [place] [address]- 3377 Feb, [facility] [place] [facility] [address] [id number] [place] [address]- 4611 Feb, [facility] [place] [facility] [address] [id number] [address]- 4104 Feb, [facility] [place] [facility] [address] [id number] [place] [address]- 2902 Feb, [facility] [place] [facility] [address] [id number] [place] [address]- 3482 Feb, [facility] [place] [facility] [address] [id number] [place] [address]- 4563 Feb, [facility] [place] [facility] [address] [id number] [place] [address]- 2113 Feb, [facility] [place] [facility] [address] [id number] [place] [address]- 6148 Feb, [facility] [place] [facility] [address] [id number] [place] [address]- 3773 08 Feb, 2013 [facility] [place] [facility] [address] [id number] [place] [address]- 7602 08 Feb, 2014 [facility] [place] [facility] [address] [id number] [place] [address]- 5908 Feb, 2013 [facility] [place] [facility] [address] [id number] [place] [address]- 1670 Feb, 2013 [facility] [place] [facility] [address] [id number] [place] [address]- 1847 Feb, 2013 [facility] [place] [facility] [address] [id number] [place] [address]- 4036 Feb, [facility] [place] [facility] [address] [id number] [place] [address]- 6082 23 Jan, 2013 [facility] [place] [facility] [address] [id number] [place] [address]- 5949 23 Jan, 2013 [facility] [place] [facility] [address] [id number] [place] [address]- 5889 20 Jan, 2013 [facility] [place] [facility] [address] [id number] [place] [address]- 3220 19 Jan, 2013 [facility] [place] [facility] [address] [id number] [place] [address]- 2893 11 Jan, 2013 [facility] [place] [facility] [address] [id number] [place] [address]- 4289 11 Jan, 2013 [facility] [place] [facility] [address] [id number] [place] [address]- 2651 03 Jan, 2013 [facility] [place] [facility] [address] [id number] [place] [address]- 8109 Jan, 2013 [facility] [place] [facility] [address] [id number] [place] [address]- 8955 Dec, [facility] [place] [facility] [address] [id number] [place] [address]- 8953 Dec, [facility] [place] [facility] [address] [id number] [place] [address]- 4493 Nov, [facility] [place] [facility] [address] [id number] [place] [address]- 6776 Nov, [facility] [place] [facility] [address] [id number] [place] [address]- 3108 Nov, [facility] [place] [facility] [address] [id number] [place] [address]- 2520 Nov, [facility] [place] [facility] [address] [id number] [place] [address]- 5075 Nov, [facility] [place] [facility] [address] [id number] [place] [address]- 6128 Nov, [facility] [place] [facility] [address] [id number] [place] [address]- 7244 Nov, [facility] [place] [facility] [address] [id number] [place] [address]- 7586 Nov, [facility] [place] [facility] [address] [id number] [place] [address]- 0161 Nov, [facility] [place] [facility] [address] [id number] [place] [address]- 4297 Oct, [facility] [place] [facility] [address] [id number] [place] [address]- 8378 Oct, [facility] [place] [facility] [address] [id number] [place] [address]- 4279 Oct, [facility] [place] [facility] [address] [id number] [place] [address]- 5094 Oct, [facility] [place] [facility] [address] [id number] [place] [address]- 6370 Oct, [facility] [place] [facility] [address] [id number] [place] [address]- 5327 Oct, [facility] [place] [facility] [address] [id number] [place] [address]- 1361 September, [facility] [address] [id number] [place] [address]- 8921 September, [facility] [place] [facility] [address] [id number] [place] [address]- 1174 September, [facility] [place] [facility] [address] [id number] [place] [address]- 1257 September, [facility] [place] [facility] [address] [id number] [place] [address]- 7547 September, [facility] [place] [facility] [address] [id number] [place] [address]- 3392 September, [facility] [place] [facility] [address] [id number] [place] [address]- 2354 September, [facility] [address] [id number] [place] [address] September, [facility] [place] [facility] [address] [id number] [place] [address] September, [facility] [place] [facility] [address] [id number] [place] [address] September, [facility] [place] [facility] [address] [id number] [place] [address] September, [facility] [place] [facility] [address] [id number] [place] [address] September, [facility] [place] [facility] [address] [id number] [place] [address] September, [facility] [place] [facility] [address] [id number] [place] [address] September, [facility] [place] [facility] [address] [id number] [place] [address] September, [facility] [place] [facility] [address] [id number] [place] [address] September, [facility] [place] [facility] [address] [id number] [place] [address] September, [facility] [place] [facility] [address] [id number] [place] [address] September, [facility] [place] [facility] [address] [id number] [place] [address] September, [facility] [place] [facility] [address] [id number] [place] [address] September, [facility] [place] [facility] [address] [id number] [place] [address] Aug, [facility] [place] [facility] [address] [id number] [place] [address] Aug, [facility] [place] [facility] [address] [id number] [place] [address] Aug, [facility] [place] [facility] [address] [id number] [place] [address] Aug, [facility] [place] [facility] [address] [id number] [place] [address] Aug, [facility] [place] [facility] [address] [id number] [place] [address]- [address] Aug, [facility] [place] [facility] [address] [id number] [place] [address] Aug, [facility] [place] [facility] [address] [id number] [place] [address]- [address] 16 Aug, 2013 [facility] [place] [facility] [address] [id number] [place] [address]- [address] 15 Aug, 2013 [facility] [place] [facility] [address] [id number] [place] [address]- [address] 15 Aug, 2013 [facility] [place] [facility] [address] [id number] [place] [address]- [address] 14 Aug, 2013 [facility] [place] [facility] [address] [id number] [place] [address]- [address] 05 Aug, 2013 [facility] [place] [facility] [address] [id number] [place] [address]- [address] 05 Aug, 2013 [facility] [place] [facility] [address] [id number] [place] [address]- [address] Aug, [facility] [place] [facility] [address] [id number] [place] [address]- [address]67 Aug, [facility] [place] [facility] [address] [id number] [place] [address] Jul, [facility] [place] [facility] [address] [id number] [place] [address] Jul, [facility] [place] [facility] [address] [id number] [place] [address]- [address] Jul, [facility] [place] [facility] [address] [id number] [place] [address] Jul, [facility] [place] [facility] [address] [id number] [place] [address] Jul, [facility] [place] [facility] [address] [id number] [place] [address]13 Jul, [facility] [place] [facility] [address] [id number] [place] [address]598 Jul, [facility] [place] [facility] [address] [id number] [place] [address]- [address] Jul, [facility] [place] [facility] [address] [id number] [place] [address] Jul, [facility] [place] [facility] [address] [id number] [place] [address] Jul, [facility] [place] [facility] [address] [id number] [place] [address]- 79[address] Jul, [facility] [place] [facility] [address] [id number] [place] [address] Jul, [facility] [place] [facility] [address] [id number] [place] [address]- 15[address] Jul, [facility] [place] [facility] [address] [id number] [place] [address]- 8839 Jul, [facility] [place] [facility] [address] [id number] [place] [address]- [address] Jul, [facility] [place] [facility] [address] [id number] [place] [address]- [address] Jun, [facility] [place] [facility] [address] [id number] [place] [address]- 99[address] Jun, [facility] [place] [facility] [address] [id number] [place] [address]- [address] Jun, [facility] [place] [facility] [address] [id number] [place] [address]- 9428 Jun, [facility] [place] [facility] [address] [id number] [place] [address]- 67[address] Jun, [facility] [place] [facility] [address] [id number] [place] [address]- [address] Jun, [facility] [place] [facility] [address] [id number] [place] [address]- [address]33 May, [facility] [place] [facility] [address] [id number] [place] [address] 134[address] May, [facility] [place] [facility] [address] [id number] [place] [address]- 1258 May, [facility] [place] [facility] [address] [id number] [place] [address]- 1426 May, [facility] [place] [facility] [address] [id number] [place] [address] May, [facility] [place] [facility] [address] [id number] [place] [address]- 0053 May, [facility] [place] [facility] [address] [id number] [place] [address] May, [facility] [address] [id number] [place] [address]- [address] May, [facility] [place] [facility] [address] [id number] [place] [address]- [address] May, [facility] [place] [facility] [address] [id number] [place] [address]- 6340 May, [facility] [place] [facility] [address] [id number] [place] [address]- [address] May, [facility] [place] [facility] [address] [id number] [place] [address] May, [facility] [place] [facility] [address] [id number] [place] [address] 3959 May, [facility] [place] [facility] [address] [id number] [place] [address] 5491 May, [facility] [place] [facility] [address] [id number] [place] [address] 0948 May, [facility] [place] [facility] [address] [id number] [place] [address] 6799 Apr, [facility] [place] [facility] [address] [id number] [place] [address] 3317 Apr, [facility] [place] [facility] [address] [id number] [place] [address]- 9133 Apr, [facility] [place] [facility] [address] [id number] [address] Apr, [facility] [place] [facility] [address] [id number] [place] [address] 2079 Apr, [facility] [place] [facility] [address] [id number] [place] [address] 3684 Apr, [facility] [place] [facility] [address] [id number] [place] [address] 3988 Apr, [facility] [place] [facility] [address] [id number] [place] [address] 5028 Apr, [facility] [address] [id number] [place] [address]- 9322 Apr, [facility] [place] [facility] [address] [id number] [place] [address]- 8078 Apr, [facility] [address] [id number] [place] [address]- 9185 Mar, [facility] [place] [facility] [address] [id number] [place] [address]- 1903 Mar, [facility] [address] [id number] [place] [address]- 6775 Mar, [facility] [place] [facility] [address] [id number] [place] [address]- 7880 Mar, [facility] [address] [id number] [place] [address]- 5341 Mar, [facility] [place] [facility] [address] [id number] [place] [address]- 9132 Mar, [facility] [place] [facility] [address] [id number] [place] [address]- 8404 Mar, [facility] [address] [facility] [id number] [place] [address]- 6898 Mar, [facility] [place] [facility] [address] [id number] [place] [address]- 6792 Mar, [facility] [place] [facility] [address] [id number] [place] [address] 2549 Mar, [facility] [place] [facility] [address] [id number] [place] [address]- 4487 Mar, [facility] [place] [facility] [address] [id number] [place] [address]- 1874 Mar, [facility] [place] [facility] [address] [id number] [place] [address]- 5916 Mar, [facility] [place] [facility] [address] [id number] [place] [address]- 8422 Mar, [facility] [place] [facility] [address] [id number] [place] [address]- 4337 Mar, [facility] [place] [facility] [address] [id number] [place] [address]- 2548 Mar, [facility] [place] [facility] [address] [id number] [place] [address]- 2285 Mar, [facility] [place] [facility] [address] [id number] [place] [address]- 2245 14 Mar, 2013 [facility] [place] [facility] [address] [id number] [place] [address]- 0336 Mar, [facility] [place] [facility] [address] [id number] [place] [address]- 3648 Mar, [facility] [place] [facility] [address] [id number] [place] [address]- 4382 Mar, [facility] [place] [facility] [address] [id number] [place] [address]- 3372 Mar, [facility] [place] [facility] [address] [id number] [place] [address]- 0748 Mar, [facility] [place] [facility] [address] [id number] [place] [address]- 0837 Feb, [facility] [place] [facility] [address] [id number] [place] [address] 7541 18 Feb, 2013 [facility] [place] [facility] [address] [id number] [place] [address]- 3053 16 Feb, 2013 [facility] [place] [facility] [address] [id number] [place] [address]- 8066 16 Feb, 2013 [facility] [place] [facility] [address] [id number] [place] [address]- 6677 15 Feb, 2013 [facility] [place] [facility] [address] [id number] [place] [address]- 8826 Feb, [facility] [place] [facility] [address] [id number] [place] [address]- 3893 Feb, [facility] [place] [facility] [address] [id number] [place] [address]- 3015 Feb, [facility] [place] [facility] [address] [id number] [place] [address]- 0321 Feb, [facility] [place] [facility] [address] [id number] [place] [address]- 8172 Feb, [facility] [place] [facility] [address] [id number] [place] [address]- 5082 30 Jan, 2013 [facility] [place] [facility] [address] [id number] [place] [address]- 3962 26 Jan, 2013 [facility] [place] [facility] [address] [id number] [place] [address]- 3869 24 Jan, 2013 [facility] [place] [facility] [address] [id number] [place] [address]- 9015 23 Jan, 2013 [facility] [place] [facility] [address] [id number] [place] [address]- 8863 17 Jan, 2013 [facility] [place] [facility] [address] [id number] [place] [address]- 3256 Dec, [facility] [place] [facility] [address] [id number] [place] [address]- 7592 Dec, [facility] [place] [facility] [address] [id number] [place] [address]- 3040 16 Dec, 2012 [facility] [place] [facility] [address] [id number] [place] [address]- 3288 15 Dec, 2012 [facility] [place] [facility] [address] [id number] [place] [address]- 7397 14 Dec, 2012 [facility] [place] [facility] [address] [id number] [place] [address]- 1523 Dec, [facility] [place] [facility] [address] [id number] [place] [address] 2546 Dec, [facility] [address] [id number] [place] [address] 2996 Nov, [facility] [address] [id number] [place] [address]- 2546 Nov, [facility] [address] [id number] [place] [address]- 2546 Nov, [facility] [address] [id number] [place] [address]- 2546 Nov, [facility] [address] [id number] [place] [address]- 2546 Nov, [facility] [address] [id number] [place] [address]- 2546 Oct, [facility] [address] [id number] [place] [address]- 2946 Oct, [facility] [address] [id number] [place] [address]- 2546 Oct, [facility] [address] [id number] [place] [address]- 5756 September, [facility] [address] [id number] [place] [address]- 2546 September, [facility] [address] [id number] [place] [address]- 2546 September, [facility] [address] [id number] [place] [address]- 2546 September, [facility] [address] [id number] [place] [address]- 2546 September, [facility] [address] [id number] [place] [address]- 2546 September, [facility] [address] [id number] [place] [address] September, [facility] [address] [id number] [place] [address]- 3427 30 Aug, 2012 [facility] [place] [facility] [address] [id number] [place] [address]- 2581 23 Aug, 2012 [facility] [place] [facility] [address] [id number] [place] [address]- 4156 Aug, [facility] [place] [facility] [address] [id number] [place] [address]- 4008 29 Jul, 2012 [facility] [address] [id number] [place] [address]- 1757 27 Jul, 2012 [facility] [place] [facility] [address] [id number] [place] [address]- 2312 26 Jul, 2012 [facility] [place] [facility] [address] [id number] [place] [address]- 3365 Jul, [facility] [place] [facility] [address] [id number] [place] [address]- 8454 18 Jul, 2012 [facility] [place] [facility] [address] [id number] [place] [address]- 7399 18 Jul, 2012 [facility] [place] [facility] [address] [id number] [place] [address]- 5449 Jul, [facility] [place] [facility] [address] [id number] [place] [address]- 5965 Jun, [facility] [place] [facility] [address] [id number] [place] [address]- 1407 Jun, [facility] [place] [facility] [address] [id number] [place] [address]- 5044 Jun, [facility] [place] [facility] [address] [id number] [place] [address]- 7125 20 Jun, 2012 [facility] [place] [facility] [address] [id number] [place] [address]- 3487 15 Jun, 2012 [facility] [place] [facility] [address] [id number] [place] [address]- 6366 15 Jun, 2012 [facility] [address] [id number] [place] [address]- 7086 Jun, [facility] [address] [id number] [place] [address] 2546 Jun, [facility] [address] [id number] [place] [address] 2546 Jun, [facility] [address] [id number] [place] [address]- 2546 Jun, [facility] [address] [id number] [place] [address]- 5417 May, [facility] [address] [id number] [place] [address]- 2632 May, [facility] [address] [id number] [place] [address]- 4552 May, [facility] [address] [id number] [place] [address]- 3834 May, [facility] [address] [id number] [place] [address]- 6072 May, [facility] [address] [id number] [place] [address]- 8839 May, [facility] [address] [id number] [place] [address]- 3076 Apr, [facility] [address] [id number] [place] [address]- 2547 Apr, [facility] [place] [facility] [address] [id number] [place] [address]- 2696 Apr, [facility] [place] [facility] [address] [id number] [place] [address]- 2546 Apr, [facility] [address] [id number] [place] [address]- 3198 Apr, [facility] [place] [facility] [address] [id number] [place] [address]- 8895 Apr, [facility] [place] [facility] [address] [id number] [place] [address]- 8142 Apr, [facility] [place] [facility] [address] [id number] [place] [address]- 0296 Mar, [facility] [place] [facility] [address] [id number] [place] [address]- 5809 Mar, [facility] [place] [facility] [address] [id number] [place] [address]- 2914 Mar, [facility] [place] [facility] [address] [id number] [place] [address]- 0520 Mar, [facility] [place] [facility] [address] [id number] [place] [address]- 6713 Mar, [facility] [place] [facility] [address] [id number] [place] [address]- 0703 Mar, [facility] [place] [facility] [address] [id number] [place] [address]- 6075 Mar, [facility] [place] [facility] [address] [id number] [address]- 9755 Mar, [facility] [place] [facility] [address] [id number] [place] [address]- 3318 Mar, [facility] [place] [facility] [address] [id number] [place] [address]- 9144 Mar, [facility] [place] [facility] [address] [id number] [place] [address]- 3184 Mar, [facility] [place] [facility] [address] [id number] [place] [address]- 4794 Mar, [facility] [place] [facility] [address] [id number] [place] [address]- 2836 Mar, [facility] [place] [facility] [address] [id number] [place] [address]- 8299 Mar, [facility] [place] [facility] [address] [id number] [place] [address]- 6857 Mar, [facility] [place] [facility] [address] [id number] [place] [address]- 5988 Mar, [facility] [place] [facility] [address] [facility] [id number] [place] [address]- 4934 Mar, [facility] [place] [facility] [address] [id number] [place] [address]- 8320 Feb, [facility] [place] [facility] [address] [id number] [place] [address] Feb, [facility] [place] [facility] [address] [id number] [place] [address]- 1118 Feb, [facility] [place] [facility] [address] [facility] [id number] [place] [address]- 0123 Feb, [facility] [place] [facility] [address] [id number] [place] [address]- 9407 Feb, [facility] [place] [facility] [address] [id number] [place] [address]- 2478 Feb, [facility] [place] [facility] [address] [facility] [id number] [place] [address]- 6312 Feb, [facility] [place] [facility] [address] [facility] [id number] [place] [address]- 7364 Feb, [facility] [place] [facility] [address] [facility] [id number] [place] [address]- 3283 Feb, [facility] [place] [facility] [address] [id number] [place] [address]- 7723 Feb, [facility] [place] [facility] [address] [facility] [id number] [place] [address]- 5096 Feb, [facility] [place] [facility] [address] [facility] [id number] [place] [address]- 7399 Jan, [facility] [place] [facility] [address] [id number] [place] [address]- 7807 25 Jan, 2011 [facility] [place] [facility] [address] [id number] [place] [address]- 5566 13 Jan, 2012 [facility] [place] [facility] [address] [id number] [place] [address] 2546 12 Jan, 2012 [facility] [place] [facility] [address] [id number] [place] [address]- 2756 07 Jan, 2012 [facility] [place] [facility] [address] [id number] [place] [address]- 9700 31 Dec, 2011 [facility] [place] [facility] [address] [id number] [place] [address]- 7371 24 Dec, 2011 [facility] [place] [facility] [address] [id number] [place] [address]- 9343 Dec, [facility] [place] [facility] [address] [id number] [place] [address]- 2954 Dec, [facility] [place] [facility] [address] [id number] [place] [address]- 3329 16 Dec, 2011 [facility] [place] [facility] [address] [id number] [place] [address]- 3795 Dec, [facility] [place] [facility] [address] [id number] [place] [address]- 7231 Dec, [facility] [place] [facility] [address] [id number] [place] [address]- 5605 Dec, [facility] [place] [facility] [address] [id number] [place] [address]- 8859 30 Nov, 2011 [facility] [place] [facility] [address] [id number] [place] [address]- 8644 Nov, [facility] [place] [facility] [address] [id number] [place] [address]- 9452 Nov, [facility] [place] [facility] [address] [id number] [place] [address]- 2135 Nov, [facility] [place] [facility] [address] [id number] [place] [address]- 6664 Nov, [facility] [place] [facility] [address] [id number] [place] [address]- 5026 Oct, [facility] [place] [facility] [address] [id number] [place] [address] 2546 Oct, [facility] [place] [facility] [address] [id number] [place] [address]- 9676 September, [facility] [place] [facility] [address] [id number] [place] [address]- 9441 September, [facility] [place] [facility] [address] [id number] [place] [address]- 4846 September, [facility] [place] [facility] [address] [id number] [place] [address]- 1346 September, [facility] [place] [facility] [address] [id number] [place] [address]- 4638 September, [facility] [place] [facility] [address] [id number] [place] [address]- 3895 September, [facility] [place] [facility] [address] [id number] [place] [address]- 0706 September, [facility] [place] [facility] [address] [id number] [place] [address]- 7156 September, [facility] [place] [facility] [address] [id number] [place] [address]- 3316 September, [facility] [place] [facility] [address] [id number] [place] [address]- 8606 September, [facility] [place] [facility] [address] [id number] [place] [address]- 8046 September, [facility] [place] [facility] [address] [id number] [place] [address]- 7476 September, [facility] [place] [facility] [address] [id number] [place] [address]- 5486 September, [facility] [address] [id number] [place] [address]- 2464 September, [facility] [address] [id number] [place] [address]- 7557 24 Aug, 2011 [facility] [address] [id number] [place] [address]- 6219 20 Aug, 2011 [facility] [address] [id number] [place] [address]- 4941 13 Aug, 2011 [facility] [address] [id number] [place] [address]- 4267 11 Aug, 2011 [facility] [address] [id number] [place] [address]- 8355 23 Jul, 2011 [facility] [id number] [address]- 2151 13 Jul, 2011 [facility] [address] [id number] [address]- 4225 13 Jul, 2011 [facility] [address] [id number] [place] [address]- 1370 28 Jun, [address] [facility] [address] [id number] [id number] Jun, 2011 [facility] [id number] [address]- 1051 13 Jun, 2011 [facility] [address] [id number] [address]- 4936 10 Jun, 2011 [facility] [address] [id number] [place] [address]- 9196 07 Jun, 2011 [facility] [address] [facility] [id number] [place] [address]- 5606 07 Jun, 2011 [facility] [address] [id number] [address]- 1326 03 Jun, 2011 [facility] [address] [id number] [place] [address]- 1995 02 Jun, 2011 [facility] [place] [facility] [address] [id number] [place] [address]- 0606 May, [facility] [place] [facility] [address] [id number] [place] [address]- 4016 May, [facility] [place] [facility] [address] [id number] [place] [address] May, [facility] [address] [id number] [place] [address] May, [facility] [place] [facility] [address] [id number] [place] [address] May, [facility] [place] [facility] [address] [id number] [place] [address] May, [facility] [place] [facility] [address] [id number] [place] [address] May, [facility] [place] [facility] [address] [id number] [place] [address] May, [facility] [place] [facility] [address] [id number] [place] [address] May, [facility] [place] [facility] [address] [id number] [place] [address] May, [facility] [place] [facility] [address] [id number] [place] [address] 17 May, 2011 [facility] [place] [facility] [address] [id number] [place] [address] 13 May, 2011 [facility] [place] [facility] [address] [id number] [place] [address] 12 May, 2011 [facility] [place] [facility] [address] [id number] [place] [address] 06 May, 2011 [facility] [place] [facility] [address] [id number] [place] [address] 30 Apr, 2011 [facility] [place] [facility] [address] [id number] [place] [address] 16 Apr, 2011 [facility] [place] [facility] [address] [id number] [place] [address] 05 Apr, 2011 [facility] [place] [facility] [address] [id number] [place] [address] 17 Mar, 2011 [facility] [place] [facility] [address] [id number] [place] [address] Mar, [facility] [place] [facility] [address] [id number] [place] [address], [place] 31 Feb, 2011 [facility] [place] [facility] [address] [id number] [place] [address] Feb, [facility] [place] [facility] [address] [id number] [place] [address] Feb, [facility] [place] [facility] [address] [id number] [place] [address] 20 Feb, 2011 [facility] [place] [facility] [address] [id number] [place] [address] 13 Feb, 2011 [facility] [place] [facility] [address] [id number] [place] [address] 28 Apr, 2010 [facility] [place] [facility] [address] [id number] [place] [address] 22 Apr, 2010 [facility] [place] [facility] [address] [id number] [place] [address] 16 Apr, 2010 [facility] [place] [facility] [address] [id number] [place] [address] 15 Apr, 2010 [facility] [place] [facility] [address] [id number] [place] [address] 15 Apr, 2010 [facility] [place] [facility] [address] [id number] [place] [address] Apr, [facility] [place] [facility] [address] [facility] [id number] [place] [address] Mar, [facility] [place] [address] [address] [address] Mar, [facility] [address] [facility] [id number] [place] [address] Mar, [facility] [address] [facility] [id number] [place] [address] Feb, [facility] [address] [facility] [id number] [place] [address] Feb, [facility] [place] [id number] [place] [address] Feb, [facility] [place] [id number] [address] Feb, [facility] [id number] [address] Dec, [facility] [address] [address] Dec, [facility] [place] [address] [address] Oct, [facility] [id number] [address] Mar, [facility] [address] [address] Mar, [facility] [address] [id number] [address] September, IMMUNIZATIONS No Known Immunizations SOCIAL HISTORY Never Assessed REASON FOR VISIT Blood in urine [facility] PT has had blood in her urine since yesterday 10/29/17, Light headed, dizzy, blurry vision the past week PLAN OF CARE Activity Details Follow Up prn Reason: VITAL SIGNS Height 64 in 2017-10-30 Weight 128 lbs 2017-10-30 Temperature 98.4 degrees Fahrenheit 2017-10-30 Heart Rate 70 bpm 2017-10-30 Respiratory Rate 18 2017-10-30 BMI 21.97 kg/m2 2017-10-30 Blood pressure systolic 122 mmHg 2017-10-30 Blood pressure diastolic 76 mmHg 2017-10-30 MEDICATIONS Medication Instructions Dosage Frequency Start Date End Date Duration Status Pantoprazole Sodium 40 MG Orally Once a day 1 tablet 24h 14 Jun, 2017 30 days Active Macrobid 100 MG TAKE ONE CAPSULE BY MOUTH ONCE DAILY WITH FOOD 90 Active Neurontin 100 mg Orally 3 times a day 1 capsule 8h September, 30 days Active Ventolin HFA 108 (90 Base) MCG/ACT Inhalation every 4 hrs 2 puffs as needed 4h Nov, Active Lisinopril 20 MG Orally Once a day 1 tablet 24h September, 30 days Active Lansoprazole 30 MG Orally Once a day 1 capsule 24h 30 days Active Fluticasone Propionate 50 MCG/ACT Nasally twice a day 1 spray in each nostril 12h Feb, 30 day(s) Active Robaxin 500 mg Orally 4 times a day 1 tablet 6h 30 Active Chlordiazepoxide HCl 10 MG Orally Three times a day 2 capsules 8h Aug, 28 days Active Bentyl 20 mg Orally Four times a day 1 tablet 6h Active Acetaminophen-Codeine #3 300-30 MG Orally every 6 hrs 1 tablet as needed 6h Oct, 28 days Active Toprol XL 50 MG Orally once daily 1 tablet 24h Aug, Active RESULTS No Results PROCEDURES Procedure Date Ordered Result Body Site LAB NOT BILLED [facility] October 30, 2017 [facility] VISIT ESTABLISHED PATIENT October 30, 2017 URINALYSIS, AUTO, W/O SCOPE October 30, 2017 INSTRUCTIONS MEDICATIONS ADMINISTERED No Known [...]
--- OUTSIDE RECORDS SUMMARY | 2018-01-13 13:21 | XMS REPORT ---
Author Author VALERIE ZAVALA [facility] Address [address] [place] [address] Care Team Providers Care Baker Name Role Phone VALERIE ZAVALA Unavailable PROBLEMS Type Condition ICD9-CM Code DXZ48-IQ Code Onset Dates Condition Status SNOMED Code Problem Generalized anxiety disorder F41.1 Active 13738398 Problem Hypokalemia E87.6 Active 698136465 Problem Right low back pain, with sciatica presence unspecified M54.5 Active 129890301 Problem Pain in right knee M25.561 Active 69321593 Problem Gastroesophageal reflux disease without esophagitis K21.9 Active 698569356 Problem UTI symptoms R39.9 Active 18094109 Problem Essential hypertension I10 Active 31397075 Problem Right foot pain M79.671 Active 10960162 Problem Neuropathy G62.9 Active 852357493 Problem Other emphysema J43.8 Active 35057332 Problem Anxiety F41.9 Active 00829628 Problem Opioid use disorder, moderate, dependence F11.20 Active 68472789 Problem Other chronic pain G89.29 Active 95946603 Problem Bone pain M89.8X9 Active 69336584 Problem Chronic pain G89.29 Active 80464962 Problem Back pain M54.9 Active 275653308 Problem Kidney stones N20.0 Active 48245868 Problem Panic attacks F41.0 Active 615103814 Problem Generalized abdominal pain R10.84 Active 043920415 Problem Renal calculus, right N20.0 Active 69323202 Problem Tobacco abuse Z72.0 Active 74626254 Problem Right upper quadrant abdominal pain R10.11 Active 241844098 Problem Depression, unspecified depression type F32.9 Active 91492670 Problem Weight decrease R63.4 Active 297687192 Problem Pulmonary emphysema, unspecified emphysema type J43.9 Active 58765938 Problem Post-traumatic stress disorder, chronic F43.12 Active 67014419 Problem Weight loss R63.4 Active 090727954 Problem Insomnia, unspecified type G47.00 Active 535453197 ALLERGIES No Information ENCOUNTERS Encounter Location Date Diagnosis [facility] [id number] [place] [address] 42984- 0082 14 Dec, 2017 [facility] [id number] [place] [address] 85950- 0761 13 Dec, 2017 [facility] [address] 52257- 6179 Dec, Medicare welcome exam Z00.00 [facility] [id number] [place] [address] 66682- 3325 17 Nov, 2017 Opioid use disorder, moderate, dependence F11.20 [facility] [id number] [place] [address] 83828- 8230 16 Nov, 2017 Pelvic pain R10.2 ; Acute pyelonephritis N10 and Essential hypertension I10 [facility] [id number] [place] [address] 31396- 1296 28 Oct, 2017 Medicare welcome exam Z00.00 [facility] [id number] [place] [address] 47895- 7649 18 Oct, 2017 Gross hematuria R31.0 ; Urinary tract infection without hematuria, site unspecified N39.0 and Weakness R53.1 [facility] [id number] [place] [address] 25618- 6260 Oct, [facility] [id number] [place] [address] 07244- 7709 Oct, [facility] [id number] [place] [address] 90587- 2059 Oct, Medicare welcome exam Z00.00 [facility] [id number] [place] [address] 80059- 5513 September, Back pain M54.9 and Right anterior knee pain M25.561 [facility] [id number] [place] [address] 60941- 6979 September, [facility] [address], [place] [address]- 7063 September, [facility] [id number] [place] [address] 60267- 1179 September, Essential hypertension I10 [facility] [id number] [place] [address] 89963- 9116 September, [facility] [id number] [place] [address] 21607- 7863 September, RLQ abdominal pain R10.31 ; Low back pain M54.5 and Other chronic pain G89.29 [facility] [id number] [place] [address] 54215- 1409 Aug, Medicare welcome exam Z00.00 [facility] [id number] [place] [address] 36722- 1399 Aug, [facility] [id number] [place] [address] 37272- 3152 Aug, Acute pyelonephritis N10 and Medicare welcome exam Z00.00 [facility] [id number] [place] [address] 84332 -0236 Aug, Dysuria R30.0 and Acute pyelonephritis N10 [facility] [address], [place] [address]- 4555 Aug, [facility] [id number] [place] [address] 78436- 4200 Aug, [facility] [address], [place] [address]- 3454 Aug, [facility] [id number] [place] [address] 49779- 7088 Aug, [facility] [address], [place] [address]- 9188 Jul, [facility] [id number] [place] [address] 57443- 5566 Jul, Renal calculus, right N20.0 and Medicare welcome exam Z00.[address] [facility] [id number] [place] [address] 45057 -2039 Jul, Dysuria R30.0 and Renal calculus, right N20.0 [facility] [id number] [place] [address] 94419- 9751 Jul, Medicare welcome exam Z00.00 [facility] [id number] [place] [address] 50171- 7228 Jun, Gastroesophageal reflux disease without esophagitis K21.9 and Generalized abdominal pain R10.84 [facility] [id number] [place] [address] 26153- 6579 Jun, Medicare welcome exam Z00.00 [facility] [id number] [place] [address] 26750- 2200 Jun, [facility] [id number] [place] [address] 69516- 0797 Jun, Medicare welcome exam Z00.00 and Encounter for screening mammogram for malignant neoplasm of breast Z12.31 [facility] [id number] [place] [address] 79787- 3009 Jun, Chronic pain G89.29 [facility] [id number] [place] [address] 88345- 5844 May, [facility] [id number] [place] [address] 01125- 9689 May, Pelvic pain R10.2 [facility] [id number] [place] [address] 88024- 8771 May, Pelvic pain R10.2 [facility] [id number] [place] [address] 17411 -7937 May, Renal calculus, right N20.0 [facility] [id number] [place] [address] 50114- 4688 May, Hematuria, unspecified type R31.9 and Nephrolithiasis N20.0 [facility] [id number] [place] [address] 98613 -3534 May, Dysuria R30.0 and Nephrolithiasis N20.0 [facility] [id number] [place] [address] 19331- 7744 May, [facility] [id number] [place] [address] 16041 -8593 May, Abdominal pain R10.9 and Kidney stone N20.0 [facility] [id number] [place] [address] 77364- 5624 May, [facility] [id number] [place] [address] 18676- 5670 May, Chronic pain G89.29 and Panic attacks F41.0 [facility] [id number] [place] [address] 92959- 9511 May, Urinary tract infection without hematuria, site unspecified N39.0 [facility] [id number] [place] [address] 90745- 8296 Apr, Right lower quadrant abdominal pain R10.31 and Abnormal serum lipase level R74.8 [facility] [id number] [place] [address] 64395- 8638 Apr, Recurrent urinary tract infection N39.0 [facility] [id number] [place] [address] 35567- 9294 Apr, UTI symptoms R39.9 ; Recurrent urinary tract infection N39.0 and Pelvic pain R10.2 [facility] [id number] [place] [address] 59219- 7761 Apr, Chronic pain G89.29 and Panic attacks F41.0 [facility] [id number] [place] [address] 42246- 5085 Apr, Dysuria R30.0 [facility] [id number] [place] [address] 23837- 6425 Apr, [facility] [id number] [place] [address] 7276 Apr, Dysuria R30.0 and Urinary tract infection without hematuria , site unspecified N39.0 [facility] [address] 99761- 6340 Mar, UTI symptoms R39.9 [facility] [address] 40991- 6540 Mar, [facility] [address] 57188- 5220 Mar, Panic attacks F41.0 and Chronic pain G89.29 [facility] [address] 50046- 9480 Mar, [facility] [id number] [place] [address] 00758- 6599 Mar, Dysuria R30.0 [facility] [address] 85049- 7745 Mar, Dysuria R30.0 [facility] [id number] [place] [address] 23625- 5061 Feb, Chronic pain G89.29 ; Shortness of breath R06.02 ; Weight loss R63.4 ; Encounter for immunization Z23 ; Bone pain M89.8X9 ; Right anterior knee pain M25.561 and Cough R05 [facility] [id number] [place] [address] 31243- 9959 Feb, Shortness of breath R06.02 [facility] [id number] [place] [address] 38858- 9947 Feb, [facility] [address] 25700- 0198 Feb, Panic attacks F41.0 and Chronic pain G89.29 [facility] [address] 99347- 2138 Feb, [facility] [id number] [place] [address] 67522- 1685 Feb, Panic attacks F41.0 ; Shortness of breath R06.02 and Encounter for immunization Z23 [facility] [address] 18186- 8295 Jan, [facility] [address] 55161- 9379 Jan, Anxiety F41.9 and Chronic pain G89.29 [facility] [address] 42561- 6417 Dec, Anxiety F41.9 and Chronic pain G89.29 [facility] [address] 26274- 5285 Nov, Chronic pain G89.29 [facility] [address] 38611- 4569 Nov, Anxiety F41.9 [facility] [address] 82850- 7170 Nov, Chronic pain G89.29 ; Essential hypertension I10 and Other emphysema J43.8 [facility] [id number] [place] [address] 17369- 9435 Oct, Anxiety F41.9 [facility] [id number] [place] [address] 70122- 8981 Oct, [facility] [address] 73412- 3204 Oct, Chronic pain G89.29 [facility] [id number] [place] [address] 58562- 8264 September, Recurrent UTI N39.0 ; Neuropathy G62.9 and Anxiety F41.9 [facility] [id number] [place] [address] 48050- 1197 September, [facility] [id number] [place] [address] 73149- 1275 September, Chronic pain G89.29 [facility] [id number] [place] [address] 34504- 7853 September, [facility] [id number] [place] [address] 28653- 7585 Aug, Post-traumatic stress disorder, chronic F43.12 ; Chronic urinary tract infection N39.0 ; Gastroesophageal reflux disease without esophagitis K21.9 ; Chronic pain G89.29 ; Essential hypertension I10 and Tobacco abuse Z72.0 [facility] [id number] [place] [address] 62293 -7631 Aug, [facility] [id number] [place] [address] 04571- 9171 Aug, Chronic pain G89.29 [facility] [id number] [place] [address] 09035- 9877 Aug, Insomnia, unspecified type G47.00 [facility] [id number] [place] [address] 20628- 9751 Aug, [facility] [id number] [place] [address] 22240- 1402 Jul, Chronic pain G89.29 [facility] [id number] [place] [address] 97204- 3117 Jul, [facility] [id number] [place] [address] 77366- 2420 Jul, [facility] [id number] [place] [address] 44734- 8785 Jul, [facility] [id number] [place] [address] 69378- 8091 15 Jul, 2016 Recurrent UTI (urinary tract infection) N39.0 [facility] [id number] [place] [address] 19598- 2904 14 Jul, 2016 [facility] [id number] [place] [address] 79166- 4245 Jun, Chronic pain G89.29 [facility] [id number] [place] [address] 30715- 3512 17 Jun, 2016 [facility] [id number] [place] [address] 86335- 8970 Jun, [facility] [id number] [place] [address] 78127- 5345 May, Chronic pain G89.29 [facility] [id number] [place] [address] 37555- 0127 May, Weight loss R63.4 and Shortness of breath R06.02 [facility] [id number] [place] [address] 24513- 2430 May, Chronic pain G89.29 ; Weight loss R63.4 and Tobacco abuse Z72.0 [facility] [id number] [place] [address] 04419- 7891 May, [facility] [id number] [place] [address] 64097- 8855 May, Hypoxia R09.02 [facility] [id number] [place] [address] 72616- 8959 May, [facility] [id number] [place] [address] 44812- 3443 May, Pulmonary emphysema, unspecified emphysema type J43.9 [facility] [id number] [place] [address] 29397 -2364 May, [facility] [id number] [place] [address] 63848- 2648 May, [facility] [id number] [place] [address] 22487- 0515 May, [facility] [address] 23493- 7506 May, Chronic pain G89.29 ; Encounter for immunization Z23 ; Right anterior knee pain M25.561 and Cough R05 [facility] [address] 05843- 9333 Apr, Chronic pain G89.29 [facility] [address] 23110- 0907 Apr, [facility] [address] 90850- 4781 Apr, Generalized anxiety disorder F41.1 and Depression, unspecified depression type F32.9 [facility] [address] 14397- 4191 Apr, Chronic pain G89.29 ; Hypokalemia E87.6 and Insomnia, unspecified type G47.00 [facility] [id number] [place] [address] 97081- 9209 Apr, [facility] [id number] [place] [address] 13954- 8202 Apr, Chronic pain G89.29 [facility] [id number] [place] [address] 88584- 0023 Apr, [facility] [id number] [place] [address] 65781- 9818 Mar, [facility] [id number] [place] [address] 68602- 3316 Mar, Insomnia, unspecified type G47.00 [facility] [id number] [place] [address] 82671- 4589 Mar, Chronic pain G89.29 [facility] [id number] [place] [address] 95296- 5716 Mar, [facility] [address], [place] [address]- 6846 Feb, [facility] [address], [place] [address]- 8818 Feb, [facility] [id number] [place] [address] 21005- 7897 Feb, [facility] [id number] [place] [address] 09008- 9726 Feb, [facility] [id number] [place] [address] 28594- 7104 Feb, [facility] [id number] [place] [address] 19130- 3055 29 Jan, 2016 [facility] [id number] [place] [address] 06320- 5951 26 Jan, 2016 [facility] [id number] [address]- 0139 20 Jan, 2016 [facility] [id number] [place] [address] 42377- 2618 13 Jan, 2016 [facility] [address] [address]- 9051 12 Jan, 2016 [facility] [address], [place] [address]- 7566 07 Jan, 2016 Chronic pain G89.29 [facility] [address], [place] [address]- 7861 Jan, Chronic pain G89.29 and Fibromyalgia M79.7 [facility] [id number] [place] [address] 51481- 3707 Dec, Depression, unspecified depression type F32.9 and Generalized anxiety disorder 300.02 [facility] [address], [place] [address]- 0812 Dec, Dysthymia F34.1 ; Insomnia, unspecified type G47.00 and Chronic pain G89.29 [facility] [address] [facility] [id number] [place] [address] 14432- 3053 Dec, Chronic pain G89.29 [facility] [id number] [place] [address] 85241 2543 Dec, Insomnia, unspecified type G47.00 [facility] [id number] [place] [address] 06202 2541 Dec, Fibromyalgia M79.7 and Chronic pain G89.29 [facility] [id number] [place] [address] 96935- 8255 Dec, [facility] [id number] [place] [address] 24189- 0305 Dec, [facility] [id number] [place] [address] 40926- 6662 Dec, [facility] [id number] [place] [address] 00411 2541 Dec, [facility] [id number] [place] [address] 92783- 7054 Dec, Chronic pain G89.29 [facility] [id number] [place] [address] 28128 254 Dec, [facility] [id number] [place] [address] 45652 2541 Dec, [facility] [id number] [place] [address] 78765 2545 Dec, [facility] [id number] [place] [address] [id number] 2548 Dec, Chronic pain G89.29 and Dysthymia F34.1 [facility] [id number] [place] [address] [id number] 2544 Nov, [facility] [id number] [place] [address] 30147- 4225 Nov, Hypokalemia E87.6 and Chronic pain G89.29 [place] [id number] [address]- 6249 Nov, Back pain M54.9 and Pain in right knee M25.561 [facility] [address] 8[address]- 4617 Nov, [place] [address] 34395- 9320 Nov, Chronic pain G89.29 [place] [address] 12593- 5173 Nov, Chronic pain G89.29 ; Weight loss R63.4 ; Bone pain M89.8X9 and Insomnia, unspecified type G47.00 [place] [address] 81066- 9633 Nov, Chronic pain G89.29 [place] [address] 78335- 6883 Nov, Chronic pain G89.29 [place] [address] 71833- 6960 Oct, Chronic pain G89.29 [place] [id number] [place] [address] 28489- 8016 Oct, UTI symptoms R39.9 [facility] [address] [address]- 9959 27 Oct, 2015 Chronic pain G89.29 [place] [address] 33566- 9030 20 Oct, 2015 Chronic pain G89.29 [place] [address] [id number] [place] [address] 29630- 6573 13 Oct, 2015 Chronic pain G89.29 [place] [address] 63192- 4983 Oct, Right upper quadrant abdominal pain R10.11 [facility] [id number] [address] 6792 Oct, Chronic pain G89.29 [facility] [id number] [place] [address] 86103- 7237 Oct, [facility] [id number] [place] [address] 62801- 9207 September, Chronic pain G89.29 [facility] [id number] [place] [address] 55651- 2510 September, Dysuria R30.0 and Urinary tract infection without hematuria , site unspecified N39.0 [facility] [id number] [place] [address] 01082- 5129 September, [facility] [id number] [place] [address] 66754- 1583 September, Dysuria R30.0 [facility] [id number] [place] [place] [address] 83550- 2118 September, Chronic pain G89.29 [facility] [id number] [place] [address] 65689- 2121 September, Chronic pain G89.29 and Essential hypertension I10 [facility] [address] [address] 2384 September, [facility] [id number] [place] [address] 74861- 1334 September, [facility] [address], [place] [address] 0596 September, [facility] [id number] [place] [address] 85089- 1826 Aug, UTI symptoms R39.9 [facility] [address], [place] [address] 2632 Aug, Dysuria R30.0 [facility] [id number] [place] [address] 41988- 1831 Aug, [facility] [id number] [place] [address] 10246- 9792 Aug, [facility] [id number] [place] [address] 38233- 4134 Aug, [facility] [address] 25729- 9985 Aug, Chronic pain G89.29 [facility] [id number] [place] [address] 18972- 6201 Aug, Dysthymia F34.1 [facility] [id number] [place] [address] 28302- 8554 Aug, Conjunctivitis, unspecified conjunctivitis type, unspecified laterality H10.9 [facility] [id number] [place] [address] 87497- 6335 Jul, Chronic pain G89.29 ; Back pain M54.9 ; Tobacco abuse Z72.0 and Weight decrease R63.4 [facility] [id number] [place] [address] 33757- 0499 Jul, [facility] [id number] [place] [address] 43594- 4234 Jul, [facility] [id number] [place] [address] 70417- 3362 24 Jul, 2015 Chronic pain G89.29 [facility] [id number] [place] [address] 13254- 8901 Jul, [facility] [id number] [place] [address] 99914- 0032 Jul, [facility] [id number] [place] [address] 81104- 2875 Jul, [facility] [id number] [place] [address] 70560- 7798 17 Jul, 2015 [facility] [address], [place] [address]- 8387 17 Jul, 2015 Chronic pain G89.29 [facility] [id number] [place] [address] 00534- 7377 16 Jul, 2015 Chronic pain G89.29 [facility] [id number] [place] [address] 74041- 7277 15 Jul, 2015 [facility] [id number] [place] [address] 08209- 3748 Jul, [facility] [id number] [place] [address] 44467- 5457 Jul, [facility] [id number] [place] [address] 80054- 4676 Jul, [facility] [id number] [place] [address] 64932- 4793 Jun, [facility] [id number] [place] [address] 78407- 4290 Jun, Depression, unspecified depression type F32.9 [facility] [id number] [place] [address] 17415- 5325 Jun, Pain in right knee M25.561 [facility] [id number] [place] [address] 66901- 6862 Jun, Chronic pain G89.29 ; Back pain M54.9 ; Bone pain M89.8X9 and Weight loss R63.4 [facility] [id number] [place] [address] 25885- 4722 Jun, [facility] [id number] [place] [address] 52467- 9525 May, [facility] [address], [place] [address]- 4706 May, UTI symptoms R39.9 ; Pain in right knee M25.561 ; Right low back pain, with sciatica presence unspecified M54.5 ; Right foot pain M79.671 ; Hypokalemia E87.6 and Screening, lipid Z13.220 [facility] [id number] [place] [address] 10187- 1425 May, [facility] [id number] [place] [address] 31597- 3095 May, [facility] [address] 42895- 9967 Mar, [facility] [address] 35178- 8196 Mar, [facility] [id number] [place] [address] 86858- 2168 Mar, Hypokalemia E87.6 [facility] [address] 45309- 9623 Mar, Pain in right leg M79.604 ; Encounter for immunization Z23 ; Pain in right knee M25.561 and Hypokalemia E87.6 [facility] [id number] [place] [address] 76487- 7602 Jan, [facility] [id number] [place] [address] 06144- 9057 Jan, [facility] [id number] [place] [address] 59990 2542 Jan, Abdominal pain, generalized 789.07 [facility] [id number] [place] [address] 92983 254 Jan, Abdominal pain, generalized 789.07 [facility] [id number] [place] [address] 88491- 6794 Dec, [facility] [id number] [place] [address] 67393- 0785 Dec, [facility] [id number] [address]- 5978 Dec, [facility] [id number] [place] [address] 00606- 7471 Nov, Hallux valgus 735.0 and Hammertoe 735.4 [facility] [address], [place] [address]- 4316 Nov, [facility] [id number] [place] [address] 37679- 9848 Nov, Hallux valgus 735.0 and Hammer toe 735.4 [facility] [id number] [place] [address] 04471- 1069 Oct, [facility] [id number] [place] [address] 45983- 5119 Oct, [facility] [id number] [place] [address] 64658- 5236 Oct, Pre-op evaluation V72.84 [facility] [id number] [place] [address] 12133- 4678 Oct, [facility] [id number] [place] [address] 89845- 1945 Oct, [facility] [address], [place] [address]- 2331 September, [facility] [address], [place] [address] 2543 September, [facility] [id number] [address]- 1374 September, Hallux valgus (acquired) 735.0 and Other hammer toe ( acquired) 735.4 [facility] [address], [place] [address]- 6976 Aug, [facility] [address], [place] [address]- 2548 Aug, [facility] [place] [facility] [address] [id number] [place] [address]- 6683 Jul, [facility] [place] [facility] [address] [id number] [place] [address]- 1024 Jul, [facility] [place] [facility] [address] [id number] [place] [address]- 2512 Jul, [facility] [place] [facility] [address] [id number] [place] [address]- 3721 Jul, [facility] [place] [facility] [address] [id number] [place] [address]- 0660 Jul, [facility] [place] [facility] [address] [id number] [place] [address]- 3690 Jul, [facility] [place] [facility] [address] [facility] [id number] [place] [address]- 3025 Jul, [facility] [place] [facility] [address] [id number] [place] [address]- 0231 Jul, [facility] [place] [facility] [address] [id number] [place] [address]- 9358 Jun, [facility] [place] [facility] [address] [id number] [place] [address]- 0775 Jun, [facility] [place] [facility] [address] [id number] [place] [address]- 1394 Jun, [facility] [place] [facility] [address] [id number] [place] [address]- 5473 Jun, [facility] [place] [facility] [address] [id number] [place] [address]- 9885 Jun, [facility] [place] [facility] [address] [id number] [place] [address]- 9741 Jun, [facility] [place] [facility] [address] [facility] [id number] [place] [address]- 0740 Jun, [facility] [place] [facility] [address] [id number] [place] [address]- 3680 Jun, [facility] [address] [id number] [place] [address]- 4603 Jun, [facility] [place] [facility] [address] [id number] [place] [address]- 0202 Jun, [facility] [address] [id number] [place] [address]- 9115 May, [facility] [place] [facility] [address] [id number] [place] [address]- 7315 May, [facility] [address] [id number] [place] [address]- 8625 May, [facility] [place] [facility] [address] [id number] [place] [address]- 0140 May, [facility] [address] [id number] [place] [address]- 8406 May, [facility] [address] [id number] [place] [address]- 0745 May, [facility] [place] [facility] [address] [id number] [place] [address]- 6428 May, [facility] [address] [id number] [place] [address]- 0804 May, [facility] [place] [facility] [address] [id number] [place] [address]- 6865 May, [facility] [place] [facility] [address] [id number] [place] [address]- 7430 May, [facility] [place] [facility] [address] [id number] [place] [address]- 3731 May, [facility] [place] [facility] [address] [id number] [place] [address]- 6996 May, [facility] [place] [facility] [address] [id number] [place] [address]- 2490 May, [facility] [place] [facility] [address] [id number] [place] [address]- 0349 May, [facility] [place] [facility] [address] [id number] [place] [address]- 7326 May, [facility] [place] [facility] [address] [id number] [place] [address]- 6778 May, [facility] [place] [facility] [address] [id number] [place] [address]- 4297 May, [facility] [place] [facility] [address] [id number] [place] [address]- 1413 May, [facility] [place] [facility] [address] [id number] [place] [address]- 7075 Apr, [facility] [place] [facility] [address] [id number] [place] [address]- 2715 Apr, [facility] [place] [facility] [address] [id number] [place] [address]- 9316 Apr, [facility] [place] [facility] [address] [id number] [place] [address]- 7333 Apr, [facility] [place] [facility] [address] [id number] [place] [address]- 8656 Apr, [facility] [place] [facility] [address] [id number] [place] [address]- 2855 Apr, [facility] [place] [facility] [address] [id number], [place] [address]- 1263 Apr, [facility] [place] [facility] [address] [id number] [place] [address]- 3638 Apr, [facility] [place] [facility] [address] [id number] [place] [address]- 3878 Apr, [facility] [place] [facility] [address] [id number] [place] [address]- 9409 Mar, [facility] [place] [facility] [address] [id number], [place] [address]- 5304 Mar, [facility] [place] [facility] [address] [id number] [place] [address]- 9690 Mar, [facility] [place] [facility] [address] [id number] [place] [address]- 3482 Mar, [facility] [place] [facility] [address] [id number] [place] 6480 Mar, [facility] [place] [facility] [address] [id number] [place] [address]- 8957 Feb, [facility] [place] [facility] [address] [id number] [place] [address]- 5154 Feb, [facility] [place] [facility] [address] [id number] [place] [address]- 8260 Feb, [facility] [place] [facility] [address] [id number] [place] [address]- 0772 Feb, [facility] [place] [facility] [address] [id number] [place] [address]- 0853 Feb, [facility] [place] [facility] [address] [facility] [id number] [place] [address]- 8878 Feb, [facility] [place] [facility] [address] [facility] [id number], [place] [address]- 3748 Feb, [facility] [place] [facility] [address] [id number], [place] [address]- 7342 Feb, [facility] [place] [facility] [address] [id number], [place] [address]- 3671 Feb, [facility] [place] [facility] [address] [id number], [place] [address]- 9677 Feb, [facility] [place] [facility] [address] [facility] [id number], [place] [address]- 8021 Feb, [facility] [place] [facility] [address] [facility] [id number], [place] [address]- 9493 Feb, [facility] [place] [facility] [address] [id number] [place] [address]- 3176 07 Feb, 2013 [facility] [place] [facility] [address] [id number] [place] [address]- 9930 Feb, 2013 [facility] [place] [facility] [address] [id number] [place] 4576 Feb, 2013 [facility] [place] [facility] [address] [id number] [place] [address]- 9879 Feb, 2013 [facility] [place] [facility] [address] [id number] [place] [address]- 2285 23 Jan, 2013 [facility] [place] [facility] [address] [id number] [place] [address]- 7786 23 Jan, 2013 [facility] [place] [facility] [address] [id number] [place] [address]- 5358 20 Jan, 2013 [facility] [place] [facility] [address] [id number] [place] [address]- 0515 19 Jan, 2013 [facility] [place] [facility] [address] [id number] [place] [address]- 3743 11 Jan, 2013 [facility] [place] [facility] [address] [id number] [place] [address]- 8839 11 Jan, 2013 [facility] [place] [facility] [address] [id number] [place] [address]- 4091 Jan, 2013 [facility] [place] [facility] [address] [id number] [place] [address]- 1819 Jan, 2013 [facility] [place] [facility] [address] [id number] [place] [address]- 0619 Dec, [facility] [place] [facility] [address] [id number] [place] 5836 Dec, [facility] [place] [facility] [address] [id number] [place] [address]- 5226 Nov, [facility] [place] [facility] [address] [id number] [place] [address]- 6858 Nov, [facility] [place] [facility] [address] [id number] [place] [address]- 0199 Nov, [facility] [place] [facility] [address] [id number] [place] [address]- 7908 Nov, [facility] [place] [facility] [address] [id number] [place] [address]- 9634 Nov, [facility] [place] [facility] [address] [id number] [place] [address]- 7910 Nov, [facility] [place] [facility] [address] [id number] [place] [address]- 2625 Nov, [facility] [place] [facility] [address] [id number] [place] [address]- 0642 Nov, [facility] [place] [facility] [address] [id number] [place] [address]- 3818 Nov, [facility] [place] [facility] [address] [id number] [place] [address]- 3104 Oct, [facility] [place] [facility] [address] [id number] [place] [address]- 6412 Oct, [facility] [place] [facility] [address] [id number] [place] [address]- 8614 Oct, [facility] [place] [facility] [address] [id number] [place] [address]- 2442 Oct, [facility] [place] [facility] [address] [id number] [place] [address]- 6357 Oct, [facility] [place] [facility] [address] [id number] [place] [address]- 9404 Oct, [facility] [place] [facility] [address] [id number] [place] [address]- 7527 September, [facility] [place] [facility] [address] [id number] [place] [address]- 4592 September, [facility] [place] [facility] [address] [id number] [place] [address]- 4618 September, [facility] [address] [id number] [place] [address]- 6247 September, [facility] [address] [id number] [place] 4546 September, [facility] [address] [id number] [place] [address]- 2988 September, [facility] [place] [facility] [address] [id number] [place] [address]- 5552 September, [facility] [address] [id number] [place] 7760 September, [facility] [address] [id number] [place] [address]- 9609 September, [facility] [address] [id number] [place] [address]- 2109 September, [facility] [address] [id number] [place] [address]- 5243 September, [facility] [address] [id number] [place] [address]- 0386 September, [facility] [address] [id number] [place] [address]- 3776 September, [facility] [address] [id number] [place] [address]- 8877 September, [facility] [place] [facility] [address] [id number] [place] [address]- 8666 September, [facility] [place] [facility] [address] [id number] [place] [address]- 3612 September, [facility] [place] [facility] [address] [id number] [place] 7417 September, [facility] [place] [facility] [address] [id number] [place] [address]- 7317 September, [facility] [place] [facility] [address] [id number] [place] [address]- 0798 September, [facility] [place] [facility] [address] [id number] [place] [address]- 8378 September, [facility] [place] [facility] [address] [id number] [place] [address]- 9714 Aug, [facility] [place] [facility] [address] [id number] [place] [address]- 9154 Aug, [facility] [place] [facility] [address] [id number] [place] [address]- 9640 Aug, [facility] [place] [facility] [address] [id number] [place] [address]- 8665 Aug, [facility] [place] [facility] [address] [id number] [place] [address]- 8025 Aug, [facility] [place] [facility] [address] [id number] [place] [address]- 7703 Aug, [facility] [place] [facility] [address] [id number] [place] [address] Aug, [facility] [place] [facility] [address] [id number] [place] [address] Aug, [facility] [place] [facility] [address] [id number] [place] [address] Aug, [facility] [place] [facility] [address] [id number] [place] [address] 15 Aug, 2013 [facility] [place] [facility] [address] [id number] [place] [address] 14 Aug, 2013 [facility] [place] [facility] [address] [id number] [place] [address] Aug, [facility] [place] [facility] [address] [id number] [place] [address] Aug, [facility] [place] [facility] [address] [id number] [place] [address] Aug, [facility] [place] [facility] [address] [id number] [place] [address] Aug, [facility] [place] [facility] [address] [id number] [place] [address] Jul, [facility] [place] [facility] [address] [id number] [place] [address]- [address] Jul, [facility] [place] [facility] [address] [id number] [place] [address] Jul, [facility] [place] [facility] [address] [id number] [place] [address] Jul, [facility] [place] [facility] [address] [id number] [place] [address]- [address] Jul, [facility] [place] [facility] [address] [id number] [place] [address]- [address] Jul, [facility] [place] [facility] [address] [id number] [place] [address]- [address] Jul, [facility] [place] [facility] [address] [id number] [place] [address] Jul, [facility] [place] [facility] [address] [id number] [place] [address]- [address] Jul, [facility] [place] [facility] [address] [id number] [place] [address] Jul, [facility] [place] [facility] [address] [id number] [place] [address] Jul, [facility] [place] [facility] [address] [id number] [place] [address] 3460 Jul, [facility] [place] [facility] [address] [id number] [place] [address]- [address] Jul, [facility] [place] [facility] [address] [id number] [place] [address] Jul, [facility] [place] [facility] [address] [id number] [place] [address]- [address] Jul, [facility] [place] [facility] [address] [id number] [place] [address]- [address] Jun, [facility] [place] [facility] [address] [id number] [place] [address]- [address] Jun, [facility] [place] [facility] [address] [id number] [place] [address]- [address] Jun, [facility] [place] [facility] [address] [id number] [place] [address] Jun, [facility] [place] [facility] [address] [id number] [place] [address]- [address] Jun, [facility] [place] [facility] [address] [id number] [place] [address]- [address] Jun, [facility] [place] [facility] [address] [id number] [place] [address]- [address] May, [facility] [place] [facility] [address] [id number] [place] [address]- [address] May, [facility] [place] [facility] [address] [id number] [place] [address]- [address]993 May, [facility] [place] [facility] [address] [id number] [place] [address]- [address] May, [facility] [place] [facility] [address] [id number] [place] [address]- [address] May, [facility] [place] [facility] [address] [id number] [place] [address]- [address] May, [facility] [place] [facility] [address] [id number] [place] [address]- [address]679 May, [facility] [place] [facility] [address] [id number] [place] [address]- [address] May, [facility] [place] [facility] [address] [id number] [place] [address] May, [facility] [address] [id number] [place] [address]36 May, [facility] [place] [facility] [address] [id number] [place] [address]- 86[address] May, [facility] [place] [facility] [address] [id number] [place] [address] May, [facility] [place] [facility] [address] [id number] [place] [address]- [address] May, [facility] [place] [facility] [address] [id number] [place] [address]- 8620 May, [facility] [place] [facility] [address] [id number] [place] [address] 9[address] May, [facility] [place] [facility] [address] [id number] [place] [address]- [address] Apr, [facility] [place] [facility] [address] [id number] [place] [address]- [address]186 Apr, [facility] [place] [facility] [address] [id number] [place] [address]- [address] Apr, [facility] [place] [facility] [address] [id number] [place] [address]- [address]88 Apr, [facility] [place] [facility] [address] [id number] [place] [address]- [address] Apr, [facility] [place] [facility] [address] [id number], [place] [address] Apr, [facility] [place] [facility] [address] [id number] [place] [address]- [address] Apr, [facility] [place] [facility] [address] [id number] [place] [address]- [address] Apr, [facility] [place] [facility] [address] [id number] [place] [address] Apr, [facility] [place] [facility] [address] [id number] [place] [address] Apr, [facility] [address] [id number] [place] [address] 7852 Mar, [facility] [place] [facility] [address] [id number] [place] [address] 9015 Mar, [facility] [address] [id number] [place] [address] 2597 Mar, [facility] [place] [facility] [address] [id number] [place] [address] 6150 Mar, [facility] [address] [id number] [place] [address] 3731 Mar, [facility] [place] [facility] [address] [id number] [place] [address] 2346 Mar, [facility] [address] [id number] [place] [address] Mar, [facility] [address] [id number] [place] [address] 7[address] Mar, [facility] [place] [facility] [address] [id number] [place] [address] 8847 Mar, [facility] [address] [id number] [place] [address] 5353 Mar, [facility] [place] [facility] [address] [id number] [place] [address]- 5278 Mar, [facility] [place] [facility] [address] [id number], [place] [address] 97[address] Mar, [facility] [place] [facility] [address] [id number] [place] [address]- 4917 Mar, [facility] [place] [facility] [address] [id number] [place] [address]- 9065 Mar, [facility] [place] [facility] [address] [id number] [place] [address]- 6285 Mar, [facility] [place] [facility] [address] [id number] [place] [address]- 2073 Mar, [facility] [place] [facility] [address] [id number] [place] [address]- 6427 Mar, [facility] [place] [facility] [address] [id number] [place] [address]- 0916 Mar, [facility] [place] [facility] [address] [id number] [place] [address]- 8860 Mar, [facility] [place] [facility] [address] [id number] [place] [address]- 7028 Mar, [facility] [place] [facility] [address] [id number] [place] [address]- 5975 Mar, [facility] [place] [facility] [address] [id number] [place] [address]- 3368 Mar, [facility] [place] [facility] [address] [id number] [place] [address]- 2171 Mar, [facility] [place] [facility] [address] [id number] [place] [address]- 3220 Feb, [facility] [place] [facility] [address] [id number] [place] [address]- 0084 Feb, [facility] [place] [facility] [address] [id number] [place] [address]- 6527 Feb, [facility] [place] [facility] [address] [id number], [place] [address]- 3907 Feb, [facility] [place] [facility] [address] [id number] [place] [address]- 2165 15 Feb, 2013 [facility] [place] [facility] [address] [id number] [place] [address]- 9253 Feb, [facility] [place] [facility] [address] [id number] [address]16 Feb, [facility] [place] [facility] [address] [id number], [place] [address]- [address]603 Feb, [facility] [place] [facility] [address] [id number] [place] [address]- 8394 Feb, [facility] [place] [facility] [address] [id number] [place] [address]- 6500 Feb, [facility] [place] [facility] [address] [id number] [place] [address]- 0724 30 Jan, 2013 [facility] [place] [facility] [address] [id number] [place] [address]- 2932 26 Jan, 2013 [facility] [place] [facility] [address] [id number] [place] [address]- 0231 24 Jan, 2013 [facility] [place] [facility] [address] [id number] [place] [address]- 9689 23 Jan, 2013 [facility] [place] [facility] [address] [id number] [place] [address]- 3749 17 Jan, 2013 [facility] [place] [facility] [address] [id number] [place] [address]- 2341 Dec, [facility] [place] [facility] [address] [id number] [place] [address]- 6720 Dec, [facility] [place] [facility] [address] [id number] [place] [address]- 9017 Dec, [facility] [place] [facility] [address] [id number] [place] [address] 1976 Dec, [facility] [place] [facility] [address] [id number] [place] [address]- 5428 14 Dec, 2012 [facility] [place] [facility] [address] [id number] [place] [address]- 6542 Dec, [facility] [place] [facility] [address] [id number] [place] [address]- 3633 Dec, [facility] [place] [facility] [address] [id number] [place] [address]- 8350 Nov, [facility] [place] [facility] [address] [id number] [place] [address]- 2546 16 Nov, 2012 [facility] [address] [id number] [place] [address]- 1176 15 Nov, 2012 [facility] [address] [id number] [place] [address]- 2546 05 Nov, 2012 [facility] [address] [id number] [place] [address]- 2546 Nov, [facility] [address] [id number] [place] [address]- 3425 Oct, [facility] [address] [id number] [place] [address]- 5200 Oct, [facility] [address] [id number] [place] [address]- 4096 Oct, [facility] [address] [id number] [place] [address]- 0696 September, [facility] [address] [id number] [place] [address]- 0447 September, [facility] [address] [id number] [place] [address]- 7086 September, [facility] [address] [id number] [place] [address]- 4986 September, [facility] [address] [id number] [place] [address]- 6466 September, [facility] [address] [id number] [place] [address]- 1452 September, [facility] [address] [id number] [place] [address]- 9506 September, [facility] [address] [id number] [place] [address]- 7086 Aug, [facility] [address] [id number] [place] [address]- 9173 Aug, [facility] [address] [id number] [place] [address]- 4484 11 Aug, 2012 [facility] [place] [facility] [address] [id number] [place] [address]- 5019 29 Jul, 2012 [facility] [place] [facility] [address] [id number] [place] [address]- 1328 27 Jul, 2012 [facility] [place] [facility] [address] [id number] [place] [address]- 1916 26 Jul, 2012 [facility] [place] [facility] [address] [id number] [place] [address]- 6407 20 Jul, 2012 [facility] [place] [facility] [address] [id number] [place] [address]- 5875 18 Jul, 2012 [facility] [place] [facility] [address] [id number] [place] [address]- 7523 18 Jul, 2012 [facility] [place] [facility] [address] [id number] [place] [address]- 7702 13 Jul, 2012 [facility] [place] [facility] [address] [id number] [place] [address]- 3755 28 Jun, 2012 [facility] [place] [facility] [address] [id number] [place] [address]- 8395 27 Jun, 2012 [facility] [place] [facility] [address] [id number] [place] [address]- 1473 22 Jun, 2012 [facility] [place] [facility] [address] [id number], [place] [address]- 5543 20 Jun, 2012 [facility] [place] [facility] [address] [id number] [place] [address]- 3124 15 Jun, 2012 [facility] [place] [facility] [address] [id number] [place]7 15 Jun, 2012 [facility] [place] [facility] [address] [id number] [place] [address]- 5046 13 Jun, 2012 [facility] [place] [facility] [address] [id number] [place] [address]- 2546 Jun, [facility] [address] [id number] [place] [address]- 3036 Jun, [facility] [address] [id number] [place] [address]- 2546 Jun, [facility] [address] [id number] [place] [address]- 8386 May, [facility] [address] [id number] [place] [address]- 2546 May, [facility] [address] [id number] [place] [address]- 8916 May, [facility] [address] [id number] [place] [address]- 2936 May, [facility] [address] [id number] [place] [address]- 6048 May, [facility] [address] [id number] [place] [address]- 3546 May, [facility] [address] [id number] [place] [address]- 8046 31 Apr, 2012 [facility] [address] [id number] [place] [address]- 1446 31 Apr, 2012 [facility] [address] [id number] [place] [address] 2546 28 Apr, 2012 [facility] [address] [id number] [place] [address]- 2546 28 Apr, 2012 [facility] [place] [facility] [address] [id number] [place] [address]- 2546 Apr, [facility] [place] [facility] [address] [id number] [place] [address]- 2546 Apr, [facility] [address] [id number] [place] [address]- 5512 Apr, [facility] [place] [facility] [address] [id number] [place] [address]- 0626 Mar, [facility] [place] [facility] [address] [id number] [place] [address]- 6445 29 Mar, 2012 [facility] [place] [facility] [address] [id number] [place] [address]- 4561 Mar, [facility] [place] [facility] [address] [id number] [place] [address]- 3242 Mar, [facility] [place] [facility] [address] [id number] [place] [address]- 2519 Mar, [facility] [place] [facility] [address] [id number] [place] [address]- 1404 Mar, [facility] [place] [facility] [address] [id number] [place] [address]- 0256 Mar, [facility] [place] [facility] [address] [id number] [place] [address]- 4239 Mar, [facility] [place] [facility] [address] [id number] [place] [address]- 1816 Mar, [facility] [place] [facility] [address] [id number] [place] [address]- 1368 Mar, [facility] [place] [facility] [address] [id number], [place] [address]- 3134 Mar, [facility] [place] [facility] [address] [id number], [place] [address]- 8880 Mar, [facility] [place] [facility] [address] [id number] [place] [address]- 3717 Mar, [facility] [place] [facility] [address] [id number], [place] [address]- 4528 Mar, [facility] [place] [facility] [address] [id number], [place] [address]- 0909 Mar, [facility] [place] [facility] [address] [id number] [place] [address]- 0509 Mar, [facility] [place] [facility] [address] [id number] [place] [address]- 8495 Mar, [facility] [place] [facility] [address] [id number] [place] [address]- 1836 Feb, [facility] [place] [facility] [address] [id number] [place] [address]- 7438 Feb, [facility] [place] [facility] [address] [id number] [place] [address]- 1170 Feb, [facility] [place] [facility] [address] [id number] [place] [address]- 2895 Feb, [facility] [place] [facility] [address] [id number] [place] [address]- 7509 Feb, [facility] [place] [facility] [address] [id number] [place] [address]- 1659 Feb, [facility] [place] [facility] [address] [id number] [place] [address]- 1148 Feb, [facility] [place] [facility] [address] [id number] [place] [address]- 6911 Feb, [facility] [place] [facility] [address] [facility] [id number] [place] [address]- 4228 Feb, [facility] [place] [facility] [address] [id number] [place] [address]- 7531 Feb, [facility] [place] [facility] [address] [id number] [place] [address]- 7076 Feb, [facility] [place] [facility] [address] [id number] [place] [address]- 1210 Jan, [facility] [place] [facility] [address] [id number] [place] [address]- 7446 Jan, [facility] [place] [facility] [address] [id number], [place] [address]- 9689 13 Jan, 2012 [facility] [place] [facility] [address] [id number] [place] [address]- 5186 Jan, [facility] [place] [facility] [address] [id number] [place] [address]- 4613 Jan, [facility] [place] [facility] [address] [id number] [place] [address]- 8085 Dec, [facility] [place] [facility] [address] [id number] [place] [address]- 0923 Dec, [facility] [place] [facility] [address] [id number] [place] [address]- 9412 Dec, [facility] [place] [facility] [address] [id number] [place] [address]- 4174 Dec, [facility] [place] [facility] [address] [id number] [place] [address]- 3067 Dec, [facility] [place] [facility] [address] [id number] [place] [address]- 6104 Dec, [facility] [place] [facility] [address] [id number] [place] [address]- 6029 Dec, [facility] [place] [facility] [address] [id number] [place] [address]- 5169 Dec, [facility] [place] [facility] [address] [id number] [place] [address]- 3096 Nov, [facility] [place] [facility] [address] [id number] [place] [address]- 6303 Nov, [facility] [place] [facility] [address] [id number] [place] [address]- 1547 Nov, [facility] [place] [facility] [address] [id number] [place] [address]- 9696 Nov, [facility] [place] [facility] [address] [id number] [place] [address]- 5726 Nov, [facility] [place] [facility] [address] [id number] [place] [address]- 1566 Oct, [facility] [address] [id number] [place] [address]- 5090 Oct, [facility] [place] [facility] [address] [id number] [place] [address]- 4286 September, [facility] [address] [id number] [place] [address]- 7196 September, [facility] [place] [facility] [address] [id number] [place] [address]- 5360 September, [facility] [address] [id number] [place] [address]- 7831 September, [facility] [address] [id number] [place] [address]- 1681 September, [facility] [address] [id number] [place] [address]- 9511 September, [facility] [place] [facility] [address] [id number] [place] [address]- 2890 September, [facility] [address] [id number] [place] [address]- 4802 September, [facility] [place] [facility] [address] [id number] [place] [address]- 8979 September, [facility] [place] [facility] [address] [id number] [place] [address]- 2679 September, [facility] [place] [facility] [address] [id number] [place] [address]- 5099 September, [facility] [place] [facility] [address] [id number] [place] [address]- 4208 September, [facility] [place] [facility] [address] [id number] [place] [address]- 2936 September, [facility] [place] [facility] [address] [id number] [place] [address]- 0946 September, [facility] [place] [facility] [address] [id number] [place] [address]- 0216 24 Aug, 2011 [facility] [address] [id number] [place] [address]- 3291 20 Aug, 2011 [facility] [address] [id number] [place] [address]- 1696 13 Aug, 2011 [facility] [address] [id number] [place] [address]- 3646 11 Aug, 2011 [facility] [address] [id number] [place] [address]- 5326 23 Jul, 2011 [facility] [address] [id number] [place] [address]- 1371 13 Jul, 2011 [facility] [address] [id number] [place] [address]- 9076 13 Jul, 2011 [facility] [address] [id number] [place] [address]- 5181 28 Jun, [address] [facility] [address] [id number] [id number] 26 Jun, 2011 [facility] [address] [id number] [place] [address]- 7633 13 Jun, 2011 [facility] [address] [facility] [id number] [place] [address]- 6776 10 Jun, 2011 [facility] [address] [id number] [place] [address]- 5866 07 Jun, 2011 [facility] [address] [id number] [place] [address]- 2546 07 Jun, 2011 [facility] [address] [id number] [place] [address]- 2116 03 Jun, 2011 [facility] [address] [id number] [place] [address]- 2546 02 Jun, 2011 [facility] [address] [id number] [place] [address]128 May, [facility] [address] [id number] [place] [address]- 1549 30 May, 2011 [facility] [place] [facility] [address] [id number] [place] [address]- 1977 May, [facility] [address] [id number] [place] [address]- 7257 May, [facility] [place] [facility] [address] [id number] [place] [address]- 3251 May, [facility] [address] [id number] [place] [address]- 2743 May, [facility] [place] [facility] [address] [id number] [place] [address]- 8430 May, [facility] [address] [id number] [place] [address]- 6208 May, [facility] [place] [facility] [address] [id number] [place] [address]- 6029 May, [facility] [place] [facility] [address] [id number] [place] [address]- 6973 May, [facility] [place] [facility] [address] [id number] [place] [address]- 1514 May, [facility] [place] [facility] [address] [id number] [place] [address]- 1518 May, [facility] [place] [facility] [address] [id number] [place] [address]- 7549 May, [facility] [place] [facility] [address] [id number] [place] [address]- 9761 May, [facility] [place] [facility] [address] [id number] [place] [address]- 5343 30 Apr, 2011 [facility] [place] [facility] [address] [id number] [place] [address]- 7382 16 Apr, 2011 [facility] [place] [facility] [address] [id number] [place] [address]- 2905 05 Apr, 2011 [facility] [place] [facility] [address] [id number] [place] [address]- 9016 17 Mar, 2011 [facility] [place] [facility] [address] [id number] [place] [address]- 1926 Mar, [facility] [place] [facility] [address] [id number] [place] [address]- 3196 31 Feb, 2011 [facility] [place] [facility] [address] [id number] [place] [address]- 5506 26 Feb, 2011 [facility] [place] [facility] [address] [id number] [place] [address] Feb, [facility] [place] [facility] [address] [id number] [place] [address] 20 Feb, 2011 [facility] [place] [facility] [address] [id number] [place] [address] 13 Feb, 2011 [facility] [place] [facility] [address] [id number] [place] [address] 28 Apr, 2010 [facility] [place] [facility] [address] [id number] [place] [address] 22 Apr, 2010 [facility] [place] [facility] [address] [facility] [id number] [place] [address] 16 Apr, 2010 [facility] [place] [facility] [address] [id number] [place] [address] 15 Apr, 2010 [facility] [place] [facility] [address] [id number] [place] [address] 15 Apr, 2010 [facility] [place] [facility] [address] [id number] [place] [address] Apr, [facility] [place] [facility] [address] [id number] [place] [address] 24 Mar, 2010 [facility] [place] [facility] [address] [facility] [id number] [place] [address] 17 Mar, 2010 [facility] [place] [facility] [id number] [address] Mar, [facility] [id number] [address] Feb, [facility] [address] [facility] [id number], [place] [address] Feb, [facility] [id number] [address] Feb, [facility] [address] [facility] [id number], [place] [address] Feb, [facility] [id number] [place] [address] Dec, [facility] [id number] [address] Dec, [facility] [id number] [place] [address] Oct, [facility] [id number] [address] Mar, [facility] [id number] [address] Mar, [facility] [id number], [place] [address] September, IMMUNIZATIONS No Known Immunizations SOCIAL HISTORY Never Assessed REASON FOR VISIT Controlled Med Refill 11/15/17 PLAN OF CARE VITAL SIGNS MEDICATIONS Medication [...]
--- NOTE | 2018-01-13 13:28 | ED Abdominal Pain ---
General Stated Complaint: UTI/BP ISSUES Source of Information: Patient Exam Limitations: No Limitations History of Present Illness Date Seen by Provider: Jan 13, 2018 Time Seen by Provider: 13:27 Initial Comments To ER accompanied by a male visitor with reports of high blood pressure at home. She has taken her 100 mg of Toprol already today. She reports chronic left lower quadrant abdominal pain that her Tylenol 3 is not helping. She has recently been weaned off of her other opiates at home. Was recently admitted for UTI. Has chronic pelvic pain and states no one can find a cause but states it is waxing and waning and she describes it as "labor pain". Timing/Duration: 1-2 Days Severity/Quality: Moderate Location: LLQ Radiation: No Radiation Activities at Onset: None Allergies and Home Medications Allergies Coded Allergies: Sulfa (Sulfonamide Antibiotics) (Verified Allergy, Unknown, 01/13/18) adhesive (Verified Allergy, Unknown, 12/31/17) fentanyl adhesive meperidine (Verified Allergy, Unknown, HALLUCINATIONS, 12/31/17) pregabalin (Verified Allergy, Unknown, 12/31/17) Home Medications Acetaminophen with Codeine 1 Each Tablet, 1 TAB PO Q6H PRN for PAIN-MODERATE, ( Reported) Albuterol Sulfate 1 Puff Puff, 2 PUFF IH Q4H PRN for SHORTNESS OF BREATH, ( Reported) 1 PUFF = 90 MCG Amlodipine Besylate 5 Mg Tablet, 5 MG PO DAILY, (Reported) Cefuroxime Axetil 500 Mg Tablet, 500 MG PO BID Prescribed by: CYDNEY ANDERSON on 01/13/18 1421 Chlordiazepoxide HCl 10 Mg Capsule, 20 MG PO TID, (Reported) TAKES 2 (10MG) CAPSULES Dicyclomine HCl 20 Mg Tablet, 20 MG PO TID PRN for IBS, (Reported) Lansoprazole 30 Mg Capsule.dr, 30 MG PO DAILY, (Reported) Lisinopril 20 Mg Tablet, 20 MG PO DAILY, (Reported) Melatonin 3 Mg Tablet, 3 MG PO HS PRN for SLEEP, (Reported) Methocarbamol 500 Mg Tablet, 500 MG PO QID PRN for MUSCLE SPASMS, (Reported) Metoprolol Succinate 50 Mg Tab.er.24h, 50 MG PO DAILY Prescribed by: RAVINDRA ROB on 12/22/172016 Nitrofurantoin Macrocrystal 100 Mg Capsule, 100 MG PO DAILY, (Reported) Omeprazole Magnesium 20 Mg Tablet.dr, 40 MG PO BID 40 MG TWICE A DAY Prescribed by: BRIGETTE MORENO on 01/01/18 1109 Phenazopyridine HCl 100 Mg Tablet, 100 MG PO TID Prescribed by: CYDNEY ANDERSON on 01/13/18 1421 Sodium Chloride 30 Ml [place], 1-2 SPRAYS NS DAILY PRN for CONGESTION, (Reported) Sucralfate 1 Gm Tablet, 1 GM PO TID Prescribed by: AUDIE ROBISON on 01/01/18 0805 Sucralfate 1 Gm Tablet, 1 GM PO TID Prescribed by: BRIGETTE MORENO on 01/01/18 1053 Patient Home Medication List Home Medication List Reviewed: Yes Review of Systems Review of Systems Constitutional: see HPI; No chills, No fever EENTM: No Symptoms Reported Respiratory: No Symptoms Reported Cardiovascular: No Symptoms Reported Gastrointestinal: See HPI, Abdominal Pain Genitourinary: No Symptoms Reported Musculoskeletal: no symptoms reported Skin: no symptoms reported Psychiatric/Neurological: No Symptoms Reported Endocrine: No Symptoms Reported Past [id number] Hx Patient Social History Type Used: Cigarettes 2nd Hand Smoke Exposure: Yes Recent Hopitalizations: No Immunizations Up To Date Tetanus Booster (TDap): Less than 5yrs Date of Pneumonia Vaccine: Feb 27, 2017 Date of Influenza Vaccine: Feb 27, 2017 Seasonal Allergies Seasonal Allergies: Yes Past Medical History Surgeries: Yes (ADHESIOLYSIS X3, LEFT FOOT X2, C/S X2, HYSTERECTOMY, RIGHT KNEE ) Abdominal, Section, Hysterectomy, Joint Replacement, Orthopedic, Tonsillectomy Respiratory: Yes Pneumonia, COPD, Emphysema Currently Using CPAP: No Currently Using BIPAP: No Cardiac: Yes Hypertension, Hypotension Neurological: No Headaches /Migraines 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 Disorders: No Sexually Transmitted Disease: No HIV/AIDS: No Genitourinary: Yes Kidney Infection, Kidney Stones, UTI-Chronic Gastrointestinal: Yes Gastroesophageal Reflux, Chronic Constipation, Irritable Bowel Musculoskeletal: Yes ("KNEE AND BACK PROBLEMS" "BULGING DISCS" ) Degenerate Disk Disease, Osteoporosis, Arthritis, Fibromyalgia, Chronic Back Pain Endocrine: No HEENT: No Loss of Vision: Bilateral Hearing Impairment: Denies Cancer: No Psychosocial: Yes (Pt states she had Bulemia years ago and lowest weight was 94 lbs ) Anxiety, PTSD, Depression Integumentary: No Blood Disorders: Yes (HX OF ANEMIA) Adverse Reaction/Blood Tranf: No (HAS FLUSHING BUT NO REACTION) Family Medical History Abdominal aortic aneurysm Alzheimer's disease 19 MOTHER Cardiovascular disease 19 FATHER ( AT 46 FROM HEART ATTACK) G8 SISTER Hypercholesterolemia 19 FATHER Hypertension 19 FATHER 19 MOTHER Myocardial infarction 19 FATHER Thyroid disease 19 MOTHER G8 SISTER CAD Under 55 Years Old, Hypertension Physical Exam Vital Signs Vital Signs - First Documented 01/13/18 13:17 Temp 97.7 Pulse 71 Resp 16 B/P (MAP) 177/117 (137) Pulse Ox 100 Capillary Refill : Height/Weight/BMI Height: 5'4.00" Weight: 133lbs. 0.0oz. [id number]; 22.8 BMI Method:Stated General Appearance: WD/WN, no apparent distress HEENT: PERRL/EOMI, normal ENT inspection Neck: non-tender, full range of motion Respiratory: no respiratory distress, no accessory muscle use Cardiovascular: regular rate, rhythm, no murmur Gastrointestinal: normal bowel sounds, soft, tenderness Extremities: normal range of motion, non-tender 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: alert, normal mood/affect, oriented x 3 Skin: normal color, warm/dry Progress/Results/Core Measures Results/Orders Lab Results Laboratory Tests Test 01/13/18 13:17 01/13/18 13:24 Range/Units Urine Color YELLOW Urine Clarity SLIGHTLY CLOUDY Urine pH 6 5-9 Urine Specific [place] 1.010 L 1.016-1.022 Urine Protein 1+ H NEGATIVE Urine Glucose (UA) NEGATIVE NEGATIVE Urine Ketones NEGATIVE NEGATIVE Urine Nitrite NEGATIVE NEGATIVE Urine Bilirubin NEGATIVE NEGATIVE Urine Urobilinogen NORMAL NORMAL MG/DL Urine Leukocyte Esterase 3+ H NEGATIVE Urine RBC (Auto) 3+ H NEGATIVE Urine RBC NONE /HPF Urine WBC TNTC H /HPF Urine Crystals NONE /LPF Urine Bacteria TRACE /HPF Urine Casts NONE /LPF Urine Mucus NEGATIVE /LPF Urine Culture Indicated YES Urine Opiates Screen POSITIVE H NEGATIVE Urine Oxycodone Screen NEGATIVE NEGATIVE Urine Methadone Screen NEGATIVE NEGATIVE Urine Propoxyphene Screen NEGATIVE NEGATIVE Urine Barbiturates Screen NEGATIVE NEGATIVE Ur Tricyclic Antidepressants Screen NEGATIVE NEGATIVE Urine Phencyclidine Screen NEGATIVE NEGATIVE Urine Amphetamines Screen NEGATIVE NEGATIVE Urine Methamphetamines Screen NEGATIVE NEGATIVE Urine Benzodiazepines Screen POSITIVE H NEGATIVE Urine Cocaine Screen NEGATIVE NEGATIVE Urine Cannabinoids Screen NEGATIVE NEGATIVE White Blood Count 9.0 4.3-11.0 10^3/uL Red Blood Count 3.74 L 4.35-5.85 10^6/uL Hemoglobin 13.2 11.5-16.0 G/DL Hematocrit 39 35-52 % Mean Corpuscular Volume 104 H 80-99 FL Mean Corpuscular Hemoglobin 35 H 25-34 PG Mean Corpuscular Hemoglobin Concent 34 32-36 G/DL Red Cell Distribution Width 13.0 10.0-14.5 % Platelet Count 262 130-400 10^3/uL Mean Platelet Volume 9.8 7.4-10.4 FL Neutrophils (%) (Auto) 65 42-75 % Lymphocytes (%) (Auto) 23 12-44 % Monocytes (%) (Auto) 10 0-12 % Eosinophils (%) (Auto) 1 0-10 % Basophils (%) (Auto) 1 0-10 % Neutrophils # (Auto) 5.9 1.8-7.8 X 10^3 Lymphocytes # (Auto) 2.0 1.0-4.0 X 10^3 Monocytes # (Auto) 0.9 0.0-1.0 X 10^3 Eosinophils # (Auto) 0.1 0.0-0.3 10^3/uL Basophils # (Auto) 0.1 0.0-0.1 10^3/uL Sodium Level 131 L 135-145 MMOL/L Potassium Level 3.5 L 3.6-5.0 MMOL/L Chloride Level 98 98-107 MMOL/L Carbon Dioxide Level 19 L 21-32 MMOL/L Anion Gap 14 5-14 MMOL/L Blood Urea Nitrogen 10 7-18 MG/DL Creatinine 0.91 0.60-1.30 MG/DL Estimat Glomerular Filtration Rate > 60 BUN/Creatinine Ratio 11 Glucose Level 83 70-105 MG/DL Calcium Level 9.1 8.5-10.1 MG/DL Corrected Calcium 9.1 8.5-10.1 MG/DL Total Bilirubin 0.3 0.1-1.0 MG/DL Aspartate Amino Transf (AST/SGOT) 51 H 5-34 U/L Alanine Aminotransferase (ALT/SGPT) 54 0-55 U/L Alkaline Phosphatase 78 40-136 U/L Total Protein 7.2 6.4-8.2 GM/DL Albumin 4.0 3.2-4.5 GM/DL My Orders Orders - CYDNEY ANDERSON APRN Iv He[place]ock-Insert (Order) (01/13/18 13:15) Cbc With Automated Diff (01/13/18 13:15) Comprehensive Metabolic Panel (01/13/18 13:15) Ua Culture If Indicated (01/13/18 13:15) Drug Screen Stat (Urine) (01/13/18 13:25) Clonidine Tablet (Catapres Tablet) (01/13/18 13:30) Hyoscyamine Sl Tablet (Levsin Sl Tablet) (01/13/18 13:30) Diphenhydramine Injection (Benadryl Inje (01/13/18 13:30) Ns Iv 500 Ml (Sodium Chloride 0.9%) (01/13/18 13:30) Ketorolac Injection (Toradol Injection) (01/13/18 14:15) Clonidine Tablet (Catapres Tablet) (01/13/18 14:30) Urine Culture (01/13/18 13:17) Ceftriaxone For Iv Use (Rocephin For I (01/13/18 14:30) Phenazopyridine Tablet (Pyridium Tablet) (01/13/18 14:30) Clonidine Tablet (Catapres Tablet) (01/13/18 14:45) Medications Given in ED Current Medications Medications Dose Ordered Sig/Lisa Route Start Time Stop Time Status Last Admin Dose Admin Ceftriaxone Sodium 1000 mg/ Sodium Chloride 50 ml @ 100 mls/hr ONCE ONCE IV 01/13/18 14:30 01/13/18 14:59 01/13/18 14:28 100 MLS/HR Clonidine HCl 0.1 mg ONCE ONCE PO 01/13/18 13:30 01/13/18 13:31 DC 01/13/18 13:35 0.1 MG Clonidine HCl 0.1 mg ONCE ONCE PO 01/13/18 14:45 01/13/18 14:46 DC 01/13/18 14:41 0.1 MG Diphenhydramine HCl 25 mg ONCE ONCE IVP 01/13/18 13:30 01/13/18 13:31 DC 01/13/18 13:35 25 MG Hyoscyamine Sulfate 0.25 mg ONCE ONCE PO 01/13/18 13:30 01/13/18 13:31 DC 01/13/18 13:35 0.25 MG Ketorolac Tromethamine 30 mg ONCE ONCE IVP 01/13/18 14:15 01/13/18 14:17 DC 01/13/18 14:28 30 MG Phenazopyridine HCl 100 mg ONCE ONCE PO 01/13/18 14:30 01/13/18 14:31 DC 01/13/18 14:29 100 MG Vital Signs/I&O 01/13/18 13:17 Temp 97.7 Pulse 71 Resp 16 B/P (MAP) 177/117 (137) Pulse Ox 100 Diagnostic Imaging Diagonstic Imaging: Xray, Ultrasound Comments CXR 12/30 no acute cardiopulmonary abnormality Abd/plevis 12/30 IMPRESSION: 1. Small nonobstructing bilateral renal stones. Both ureters are slightly prominent likely owing to mildly distended ureter. No definitive evidence for ureteral calcification. 2. Mild severity fecal retention. No evidence for bowel obstruction. 3. Gallbladder is contracted with suggestion of gallbladder wall thickening and pericholecystic fluid. Underlying cholecystitis not excluded. Clinical correlation recommended. GB US 12/31 IMPRESSION: 1. No cholelithiasis or acute cholecystitis. No liver or gallbladder abnormality detected. Departure Communication (Admissions) 1417-Blood pressure had been down to 173/89. She states that her pain is no better. Pyridium ordered, Toradol ordered. Discussed with her her history of opiate use which is excessive. We will avoid opiates. 1450-BP down to 159/81 Impression Primary Impression: Hypertension Additional Impressions: Chronic abdominal pain Urinary tract infection Disposition: 01 HOME, SELF-CARE Condition: Stable Departure-Patient Inst. Decision time for Depature: 13:55 Referrals: [facility] (PCP/Family) Primary Care Physician Patient Instructions: Urinary Tract Infection, Adult (DC) Add. Discharge Instructions: 1. Return to ER for any concerns. The phenazopyridine which we will prescribe you does turn the urine a very bright orange color so do not let this alarm you. 2. Follow up with your doctor next week 3. Antibiotics as directed Scripts Cefuroxime Axetil (Cefuroxime) 500 Mg Tablet 500 MG PO BID, #10 TAB Prov: CYDNEY ANDERSON [employer]RA[employer] SUPERINTENDENT 01/13/18 Phenazopyridine HCl (Pyridium) 100 Mg Tablet 100 MG PO TID, #9 TAB Prov: CYDNEY ANDERSON [employer]RA[employer] SUPERINTENDENT 01/13/18 CYDNEY ANDERSON APRN Jan 13, 2018 13:28
[2018-01-13] MEDS ORDERED: cloNIDine 0.1 MG (CATAPRES) TAB PO ONE ×3 (13:30→14:45)
[2018-01-13] MEDS ORDERED: NS IV 500 ML 500 ML IV SCH (13:30)
[2018-01-13] MEDS ORDERED: diphenhydrAMINE 50 MG/ML INJ (BENADRYL) IVP ONE (13:30)
[2018-01-13] MEDS ORDERED: HYOSCYAMINE 0.125 MG (LEVSIN) TAB PO ONE (13:30)
[2018-01-13 13:33] LABS: BILIRUBIN,URINE NEGATIVE (NEGATIVE); CLARITY,URINE SLIGHTLY CLOUDY; COLOR,URINE YELLOW; GLUCOSE, URINE (UA) NEGATIVE (NEGATIVE); KETONES,URINE NEGATIVE (NEGATIVE); LEUKOCYTE ESTERASE ,URINE 3+ (NEGATIVE); NITRITE,URINE NEGATIVE (NEGATIVE); PH,URINE 6 (5-9); PROTEIN,URINE 1+ (NEGATIVE); UROBILINOGEN,URINE NORMAL (NORMAL)
[2018-01-13 13:39] LABS: BASOPHILS # (AUTO) 0.1 10^3/uL (0.0-0.1); BASOPHILS % (AUTO) 1 % (0-10); EOSINOPHILS # (AUTO) 0.1 10^3/uL (0.0-0.3); EOSINOPHILS % (AUTO) 1 % (0-10); HEMATOCRIT 39 % (35-52); HEMOGLOBIN 13.2 G/DL (11.5-16.0); LYMPHOCYTES % (AUTO) 23 % (12-44); MEAN CORPUSCULAR HEMOGLOBIN 35 PG (25-34); MEAN CORPUSCULAR HGB CONC 34 G/DL (32-36); MEAN CORPUSCULAR VOLUME 104 FL (80-99); MEAN PLATELET VOLUME 9.8 FL (7.4-10.4); MONOCYTES # (AUTO) 0.9 X 10^3 (0.0-1.0); MONOCYTES % (AUTO) 10 % (0-12); NEUTROPHILS # (AUTO) 5.9 X 10^3 (1.8-7.8); NEUTROPHILS % (AUTO) 65 % (42-75); PLATELET COUNT 262 10^3/uL (130-400); RED BLOOD COUNT 3.74 10^6/uL (4.35-5.85)
[2018-01-13 13:53] LABS: ALANINE AMINOTRANSFERASE 54 U/L (0-55); ALKALINE PHOSPHATASE 78 U/L (40-136); BILIRUBIN,TOTAL 0.3 MG/DL (0.1-1.0); BUN/CREATININE RATIO 11; CALCIUM 9.1 MG/DL (8.5-10.1); CARBON DIOXIDE 19 MMOL/L (21-32); CHLORIDE 98 MMOL/L (98-107); CREATININE SERUM 0.91 MG/DL (0.60-1.30); GFR ESTIMATED > 60; GLUCOSE 83 MG/DL (70-105); POTASSIUM 3.5 MMOL/L (3.6-5.0); SODIUM 131 MMOL/L (135-145); TOTAL PROTEIN 7.2 GM/DL (6.4-8.2)
[2018-01-13 14:09] LABS: AMPHETAMINE SCREEN, URINE NEGATIVE (NEGATIVE); BARBITURATE SCREEN URINE NEGATIVE (NEGATIVE); BENZODIAZEPINES SCREEN URINE POSITIVE (NEGATIVE); CANNABINOID SCREEN, URINE NEGATIVE (NEGATIVE); COCAINE SCREEN URINE NEGATIVE (NEGATIVE); METHADONE STAT NEGATIVE (NEGATIVE); METHAMPHETAMINE SCREEN URINE S NEGATIVE (NEGATIVE); OPIATE SCREEN URINE POSITIVE (NEGATIVE); OXYCODONE STAT NEGATIVE (NEGATIVE); PROPOXYPHENE STAT NEGATIVE (NEGATIVE); TRICYCLIC ANTIDEPRESSANTS SCRE NEGATIVE (NEGATIVE)
[2018-01-13] MEDS ORDERED: KETOROLAC 30 MG/ML VIAL IVP ONE (14:15)
[2018-01-13 14:17] LABS: BACTERIA,URINE TRACE /HPF; WBC,URINE TNTC /HPF
[2018-01-13] MEDS ORDERED: CEFU500T63 PO (14:21)
[2018-01-13] MEDS ORDERED: PHEN-639 PO (14:21)
[2018-01-13] MEDS ORDERED: PHENAZOPYRIDINE 100 MG (PYRIDIUM) TABLET PO ONE (14:30)
[2018-01-13] MEDS ORDERED: cefTRIAXone FOR IV USE 1,000 MG in NS (IVPB) 50 ML IV ONE (14:30)
--- OUTSIDE RECORDS SUMMARY | 2018-01-13 14:37 | XMS REPORT | Continuity of Care Document ---
Author Author [facility] Address Unknown Phone Unavailable Allergies Active Description Code Type Severity Reaction Onset Reported/Identified Relationship to Patient Clinical Status Yes fear of needles-will pass out OA N/A N/A 08/14/2008 Yes fear of needles-will pass out OA 08/14/2008 Yes hydrochlorothiazide Drug Allergy N/A N/A 01/27/2009 Yes hydrochlorothiazide Drug Allergy 01/27/2009 Yes sulfa drug Drug Allergy 06/23/2010 Yes acetaminophen [id number] Drug Allergy Unknown NAUSEA 10/29/2014 Yes hydrocodone [id number] Drug Allergy Unknown NAUSEA 10/29/2014 Yes fentanyl [id number] Drug Allergy Unknown N/A 01/01/2015 Yes acetaminophen [id number] Drug Allergy Unknown N/A 05/29/2016 Yes hydrocodone [id number] Drug Allergy Unknown N/A 05/29/2016 Yes adhesive [id number] Drug Allergy Unknown N/A 12/31/2017 Yes meperidine [id number] Drug Allergy Unknown HALLUCINATIONS 12/31/2017 Yes pregabalin [id number] Drug Allergy Unknown N/A 12/31/2017 Yes Sulfa (Sulfonamide Antibiotics) [id number] Drug Allergy Unknown N/A 2017 Medications There [...] Urine 08/14/2008 789.00 Abdominal Pain 08/14/2008 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, VALERIE S 599.70 Blood In Urine 08/14/2008 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, VALERIE S 789.00 Abdominal Pain 08/14/2008 YATES DO, KARO K 599.70 Blood In Urine 08/14/2008 YATES DO, KARO K 789.00 Abdominal Pain 08/14/2008 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, VALERIE S 599.70 Blood In Urine 08/14/2008 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, VALERIE S 789.00 Abdominal Pain 08/14/2008 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, VALERIE S 599.70 Blood In Urine 08/14/2008 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, VALERIE S 789.00 Abdominal Pain 08/14/2008 YATES [...] S 599.70 Blood In Urine 08/14/2008 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, VALERIE S 789.00 Abdominal Pain 08/14/2008 YATES DO, KARO K 599.70 Blood In Urine 08/14/2008 YATES DO, KARO K 789.00 Abdominal Pain 08/14/2008 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, VALERIE S 599.70 Blood In Urine 08/14/2008 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, VALERIE S 789.00 Abdominal Pain 08/14/2008 YATES DO, KARO K 599.70 Blood In Urine 08/14/2008 YATES DO, KARO K 789.00 Abdominal Pain 08/14/2008 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, VALERIE S 599.70 Blood In Urine 08/14/2008 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, VALERIE S 789.00 Abdominal Pain 08/14/2008 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, VALERIE S 599.70 Blood In Urine 08/14/2008 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, VALERIE S 789.00 Abdominal Pain 08/14/2008 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, VALERIE S 599.70 Blood In Urine 08/14/2008 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, VALERIE S 789.00 Abdominal Pain 08/14/2008 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, VALERIE S 599.70 Blood In Urine 08/14/2008 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, VALERIE S 789.00 Abdominal Pain 08/14/2008 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, VALERIE S 599.70 Blood In Urine 08/14/2008 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, VALERIE S 789.00 Abdominal Pain 08/14/2008 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, VALERIE S 599.70 Blood In Urine 08/14/2008 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, VALERIE S 789.00 Abdominal Pain 08/14/2008 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, VALERIE S 599.70 Blood In Urine 08/14/2008 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, VALERIE S 789.00 Abdominal Pain 08/14/2008 YATES DO, KARO K 599.70 Blood In Urine 08/14/2008 YATES DO, KARO K 789.00 Abdominal Pain 08/14/2008 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, VALERIE S 599.70 Blood In Urine 08/14/2008 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, VALERIE S 789.00 Abdominal Pain 08/14/2008 YATES DO, KARO K 599.70 Blood In Urine 08/14/2008 YATES DO, KARO K 789.00 Abdominal Pain 08/14/2008 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, VALERIE S 599.70 Blood In Urine 08/14/2008 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, VALERIE S 789.00 Abdominal Pain 08/14/2008 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, VALERIE S 599.70 Blood In Urine 08/14/2008 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, VALERIE S 789.00 Abdominal Pain 08/14/2008 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, VALERIE S 599.70 Blood In Urine 08/14/2008 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, VALERIE S 789.00 Abdominal Pain 08/14/2008 YATES DO, KARO K 599.70 Blood In Urine 08/14/2008 YATES DO, KARO K 789.00 Abdominal Pain 08/14/2008 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, VALERIE S 599.70 Blood In Urine 08/14/2008 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, VALERIE S 789.00 Abdominal Pain 09/09/2008 YATES DO, KARO K 599.0 Urinary Tract Infection 09/09/2008 YATES DO, KARO K 599.0 Urinary Tract Infection 09/09/2008 TACO BLINDSTITCH LAPEL PADDER, ZORAIDA R 599.0 Urinary Tract Infection 09/09/2008 599.0 Urinary Tract Infection 09/09/2008 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, VALERIE S 599.0 Urinary Tract Infection 09/09/2008 YATES DO, KARO K 599.0 Urinary Tract Infection 09/09/2008 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, VALERIE S 599.0 Urinary Tract Infection 09/09/2008 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, VALERIE S 599.0 Urinary Tract Infection 09/09/2008 YATES DO, KARO K 599.0 Urinary Tract Infection 09/09/2008 599.0 Urinary Tract Infection 09/09/2008 599.0 Urinary Tract Infection 09/09/2008 599.0 Urinary Tract Infection 09/09/2008 MICHELLE CAMARGO MD 599.0 Urinary Tract Infection 09/09/2008 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, VALERIE S 599.0 Urinary Tract Infection 09/09/2008 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, VALERIE S 599.0 Urinary Tract Infection 09/09/2008 YATES DO, KARO K 599.0 Urinary Tract Infection 09/09/2008 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, VALERIE S 599.0 Urinary Tract Infection 09/09/2008 YATES DO, KARO K 599.0 Urinary Tract Infection 09/09/2008 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, VALERIE S 599.0 Urinary Tract Infection 09/09/2008 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, VALERIE S 599.0 Urinary Tract Infection 09/09/2008 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, VALERIE S 599.0 Urinary Tract Infection 09/09/2008 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, VALERIE S 599.0 Urinary Tract Infection 09/09/2008 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, VALERIE S 599.0 Urinary Tract Infection 09/09/2008 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, VALERIE S 599.0 Urinary Tract Infection 09/09/2008 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, VALERIE S 599.0 Urinary Tract Infection 09/09/2008 YATES DO, KARO K 599.0 Urinary Tract Infection 09/09/2008 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, VALERIE S 599.0 Urinary Tract Infection 09/09/2008 YATES DO, KARO K 599.0 Urinary Tract Infection 09/09/2008 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, VALERIE S 599.0 Urinary Tract Infection 09/09/2008 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, VALERIE S 599.0 Urinary Tract Infection 09/09/2008 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, VALERIE S 599.0 Urinary Tract Infection 09/09/2008 YATES DO, KARO K 599.0 Urinary Tract Infection 09/09/2008 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, VALERIE S 599.0 Urinary Tract Infection 09/30/2008 YATES DO, KARO K 564.1 IRRITABLE BOWEL SYNDROME 09/30/2008 YATES DO, KARO K 724.2 LUMBAGO 09/30/2008 YATES DO, KARO K 564.1 IRRITABLE BOWEL SYNDROME 09/30/2008 YATES DO, KARO K 724.2 LUMBAGO 09/30/2008 CHARLEEN ESPAÑA APRNRICIA R 564.1 IRRITABLE BOWEL SYNDROME 09/30/2008 TACO BLINDSTITCH LAPEL PADDER ZORAIDA R 724.2 LUMBAGO 09/30/2008 564.1 IRRITABLE BOWEL SYNDROME 09/30/2008 724.2 LUMBAGO 09/30/2008 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, VALERIE S 564.1 IRRITABLE BOWEL SYNDROME 09/30/2008 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, VALERIE S 724.2 LUMBAGO 09/30/2008 YATES DO, KARO K 564.1 IRRITABLE BOWEL SYNDROME 09/30/2008 YATES DO, KARO K 724.2 LUMBAGO 09/30/2008 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, VALERIE S 564.1 IRRITABLE BOWEL SYNDROME 09/30/2008 [...] KARO K 564.1 IRRITABLE BOWEL SYNDROME 09/30/2008 YATSE DO, KARO K 724.2 LUMBAGO 09/30/2008 SALLY [...] S 564.1 IRRITABLE BOWEL SYNDROME 09/30/2008 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, VALERIE S 724.2 LUMBAGO 09/30/2008 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, VALERIE S 564.1 IRRITABLE BOWEL SYNDROME 09/30/2008 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, VALERIE S 724.2 LUMBAGO 09/30/2008 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, VALERIE S 564.1 IRRITABLE BOWEL SYNDROME 09/30/2008 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, VALERIE S 724.2 LUMBAGO 09/30/2008 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, VALERIE S 564.1 IRRITABLE BOWEL SYNDROME 09/30/2008 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, VALERIE S 724.2 LUMBAGO 09/30/2008 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, VALERIE S 564.1 IRRITABLE BOWEL SYNDROME 09/30/2008 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, VALERIE S 724.2 LUMBAGO 09/30/2008 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, VALERIE S 564.1 IRRITABLE BOWEL SYNDROME 09/30/2008 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, VALERIE S 724.2 LUMBAGO 09/30/2008 YATES DO, KARO K 564.1 IRRITABLE BOWEL SYNDROME 09/30/2008 YATES DO, KARO K 724.2 LUMBAGO 09/30/2008 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, VALERIE S 564.1 IRRITABLE BOWEL SYNDROME 09/30/2008 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, VALERIE S 724.2 LUMBAGO 09/30/2008 YATES DO, KARO K 564.1 IRRITABLE BOWEL SYNDROME 09/30/2008 YATES DO, KARO K 724.2 LUMBAGO 09/30/2008 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, VALERIE S 564.1 IRRITABLE BOWEL SYNDROME 09/30/2008 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, VALERIE S 724.2 LUMBAGO 09/30/2008 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, VALERIE S 564.1 IRRITABLE BOWEL SYNDROME 09/30/2008 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, VALERIE S 724.2 LUMBAGO 09/30/2008 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, VALERIE S 564.1 IRRITABLE BOWEL SYNDROME 09/30/2008 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, VALERIE S 724.2 LUMBAGO 09/30/2008 YATES DO, KARO K 564.1 IRRITABLE BOWEL SYNDROME 09/30/2008 YATES DO, KARO K 724.2 LUMBAGO 09/30/2008 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, VALERIE S 564.1 IRRITABLE BOWEL SYNDROME 09/30/2008 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, VALERIE S 724.2 LUMBAGO 10/21/2008 YATES DO, KARO K 788.1 Dysuria 10/21/2008 YATES DO, KARO K 788.1 Dysuria 10/21/2008 TACO BLINDSTITCH LAPEL PADDER, ZORAIDA R 788.1 Dysuria 10/21/2008 788.1 Dysuria 10/21/2008 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, VALERIE S 788.1 Dysuria 10/21/2008 YATES DO, KARO K 788.1 Dysuria 10/21/2008 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, VALERIE S 788.1 Dysuria 10/21/2008 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, VALERIE S 788.1 Dysuria 10/21/2008 YATES DO, KARO K 788.1 Dysuria 10/21/2008 788.1 Dysuria 10/21/2008 788.1 Dysuria 10/21/2008 788.1 Dysuria 10/21/2008 MARY JO ABRAMS, MICHELLE 788.1 Dysuria 10/21/2008 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, VALERIE S 788.1 Dysuria 10/21/2008 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, VALERIE S 788.1 Dysuria 10/21/2008 YATES DO, KARO K 788.1 Dysuria 10/21/2008 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, VALERIE S 788.1 Dysuria 10/21/2008 YATES DO, KARO K 788.1 Dysuria 10/21/2008 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, VALERIE S 788.1 Dysuria 10/21/2008 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, VALERIE S 788.1 Dysuria 10/21/2008 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, VAELRIE S 788.1 Dysuria 10/21/2008 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, VALERIE S 788.1 Dysuria 10/21/2008 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, VALERIE S 788.1 Dysuria 10/21/2008 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, VALERIE S 788.1 Dysuria 10/21/2008 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, VALERIE S 788.1 Dysuria 10/21/2008 YATES DO, KARO K 788.1 Dysuria 10/21/2008 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, VALERIE S 788.1 Dysuria 10/21/2008 YATES DO, KARO K 788.1 Dysuria 10/21/2008 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, VALERIE S 788.1 Dysuria 10/21/2008 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, VALERIE S 788.1 Dysuria 10/21/2008 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, VALERIE S 788.1 Dysuria 10/21/2008 YATES DO, KARO K 788.1 Dysuria 10/21/2008 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, VALERIE S 788.1 Dysuria 01/13/2009 YATES DO, KARO K 300.00 Anxiety State Unspecified 01/13/2009 YATES DO, KARO K 401.9 UNSPECIFIED ESSENTIAL HYPERTENSION 01/13/2009 YATES DO, KARO K 300.00 Anxiety State Unspecified 01/13/2009 YATES DO, KARO K 401.9 UNSPECIFIED ESSENTIAL HYPERTENSION 01/13/2009 ESPAÑA BLINDSTITCH LAPEL PADDER, ZORAIDA R 300.00 Anxiety State Unspecified 01/13/2009 ESPAÑA BLINDSTITCH LAPEL PADDER, ZORAIDA R 401.9 UNSPECIFIED ESSENTIAL HYPERTENSION 01/13/2009 300.00 Anxiety State Unspecified 01/13/2009 401.9 UNSPECIFIED ESSENTIAL HYPERTENSION 01/13/2009 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, VALERIE S 300.00 Anxiety State Unspecified 01/13/2009 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, VALERIE S 401.9 UNSPECIFIED ESSENTIAL HYPERTENSION 01/13/2009 YATES DO, KARO K 300.00 Anxiety State Unspecified 01/13/2009 YATES DO, KARO K 401.9 UNSPECIFIED ESSENTIAL HYPERTENSION 01/13/2009 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, VALERIE S 300.00 Anxiety State Unspecified 01/13/2009 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, VALERIE S 401.9 UNSPECIFIED ESSENTIAL HYPERTENSION 01/13/2009 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, VALERIE S 300.00 Anxiety State Unspecified 01/13/2009 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, VALERIE S 401.9 UNSPECIFIED ESSENTIAL HYPERTENSION 01/13/2009 [...] MD 401.9 UNSPECIFIED ESSENTIAL HYPERTENSION 01/13/2009 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 VALERIE S 300.00 Anxiety State Unspecified 01/13/2009 SALLY RIVERA VALERIE S 401.9 UNSPECIFIED ESSENTIAL HYPERTENSION 01/13/2009 SALLY PERSAUDN VALERIE S 300.00 Anxiety State Unspecified 01/13/2009 SERINA ZAVALA APRNNDA S 401.9 UNSPECIFIED ESSENTIAL HYPERTENSION 01/13/2009 YATES DO, KARO K 300.00 Anxiety State Unspecified 01/13/2009 YATES DO, KARO K 401.9 UNSPECIFIED ESSENTIAL HYPERTENSION 01/13/2009 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 VALERIE S 300.00 Anxiety State Unspecified 01/13/2009 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 VALERIE S 401.9 UNSPECIFIED ESSENTIAL HYPERTENSION 01/13/2009 YATES DO, KARO K 300.00 Anxiety State Unspecified 01/13/2009 YATES DO, KARO K 401.9 UNSPECIFIED ESSENTIAL HYPERTENSION 01/13/2009 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, VALERIE S 300.00 Anxiety State Unspecified 01/13/2009 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, VALERIE S 401.9 UNSPECIFIED ESSENTIAL HYPERTENSION 01/13/2009 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, VALERIE S 300.00 Anxiety State Unspecified 01/13/2009 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 VALERIE S 401.9 UNSPECIFIED ESSENTIAL HYPERTENSION 01/13/2009 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, VALERIE S 300.00 Anxiety State Unspecified 01/13/2009 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, VALERIE S 401.9 UNSPECIFIED ESSENTIAL HYPERTENSION 01/13/2009 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, VALERIE S 300.00 Anxiety State Unspecified 01/13/2009 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, VALERIE S 401.9 UNSPECIFIED ESSENTIAL HYPERTENSION 01/13/2009 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, VALERIE S 300.00 Anxiety State Unspecified 01/13/2009 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, VALERIE S 401.9 UNSPECIFIED ESSENTIAL HYPERTENSION 01/13/2009 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, VALERIE S 300.00 Anxiety State Unspecified 01/13/2009 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, VALERIE S 401.9 UNSPECIFIED ESSENTIAL HYPERTENSION 01/13/2009 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, VALERIE S 300.00 Anxiety State Unspecified 01/13/2009 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, VALERIE S 401.9 UNSPECIFIED ESSENTIAL HYPERTENSION 01/13/2009 YATES DO, KARO K 300.00 Anxiety State Unspecified 01/13/2009 YATSE DO, KARO K 401.9 UNSPECIFIED ESSENTIAL HYPERTENSION 01/13/2009 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, VALERIE S 300.00 Anxiety State Unspecified 01/13/2009 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, VALERIE S 401.9 UNSPECIFIED ESSENTIAL HYPERTENSION 01/13/2009 YATES DO, KARO K 300.00 Anxiety State Unspecified 01/13/2009 YATES DO, KARO K 401.9 UNSPECIFIED ESSENTIAL HYPERTENSION 01/13/2009 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, VALERIE S 300.00 Anxiety State Unspecified 01/13/2009 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, VALERIE S 401.9 UNSPECIFIED ESSENTIAL HYPERTENSION 01/13/2009 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, VALERIE S 300.00 Anxiety State Unspecified 01/13/2009 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, VALERIE S 401.9 UNSPECIFIED ESSENTIAL HYPERTENSION 01/13/2009 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, VALERIE S 300.00 Anxiety State Unspecified 01/13/2009 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, VALERIE S 401.9 UNSPECIFIED ESSENTIAL HYPERTENSION 01/13/2009 YATES DO, KARO K 300.00 Anxiety State Unspecified 01/13/2009 YAETS DO, KARO K 401.9 UNSPECIFIED ESSENTIAL HYPERTENSION 01/13/2009 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, VALERIE S 300.00 Anxiety State Unspecified 01/13/2009 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, VALERIE S 401.9 UNSPECIFIED ESSENTIAL HYPERTENSION 03/25/2009 YATES DO, KARO K 296.90 Episodic Mood Disorders 03/25/2009 YATES DO, KARO K 780.79 Feelings Of Weakness 03/25/2009 YATES DO, KARO K 787.91 Diarrhea 03/25/2009 YATES DO, KARO K 296.90 Episodic Mood Disorders 03/25/2009 YATES DO, KARO K 780.79 Feelings Of Weakness 03/25/2009 YATES DO, KARO K 787.91 Diarrhea 03/25/2009 ESPAÑA BLINDSTITCH LAPEL PADDER, ZORAIDA R 296.90 Episodic Mood Disorders 03/25/2009 ESPAÑA BLINDSTITCH LAPEL PADDER, ZORAIDA R 780.79 Feelings Of Weakness 03/25/2009 ESPAÑA BLINDSTITCH LAPEL PADDER, ZORAIDA R 787.91 Diarrhea 03/25/2009 296.90 Episodic [...] S 780.79 Feelings Of Weakness 03/25/2009 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, VALERIE S 787.91 Diarrhea 03/25/2009 YATES DO, [...] DO, KARO K 787.91 Diarrhea 03/25/2009 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, VALERIE S 296.90 Episodic Mood Disorders 03/25/2009 SALLY RIVERA VALERIE S 780.79 Feelings Of Weakness 03/25/2009 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 VALERIE S 787.91 Diarrhea 03/25/2009 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 VALERIE S 296.90 Episodic Mood Disorders 03/25/2009 [...] S 780.79 Feelings Of Weakness 03/25/2009 SALLY RIVEAR VALERIE S 787.91 Diarrhea 03/25/2009 YATES DO, [...] S 296.90 Episodic Mood Disorders 03/25/2009 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, VALERIE S 780.79 Feelings Of Weakness 03/25/2009 SALLY RIVERA VALERIE S 787.91 Diarrhea 03/25/2009 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, VALERIE S 296.90 Episodic Mood Disorders 03/25/2009 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, VALERIE S 780.79 Feelings Of Weakness 03/25/2009 [...] DO, KARO K 787.91 Diarrhea 03/25/2009 SALLY RIEVRA VALERIE S 296.90 Episodic Mood Disorders 03/25/2009 [...] ABRAMS, MICHELLE 599.71 Gross Hematuria 10/20/2009 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, VALERIE S 599.71 Gross Hematuria 10/20/2009 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, VALERIE S 599.71 Gross Hematuria 10/20/2009 YATES DO, KARO K 599.71 Gross Hematuria 10/20/2009 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, VALERIE S 599.71 Gross Hematuria 10/20/2009 YATES DO, KARO K 599.71 Gross Hematuria 10/20/2009 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, VALERIE S 599.71 Gross Hematuria 10/20/2009 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, VALERIE S 599.71 Gross Hematuria 10/20/2009 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, VALERIE S 599.71 Gross Hematuria 10/20/2009 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, VALERIE S 599.71 Gross Hematuria 10/20/2009 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, VALERIE S 599.71 Gross Hematuria 10/20/2009 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, VALERIE S 599.71 Gross Hematuria 10/20/2009 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, VALERIE S 599.71 Gross Hematuria 10/20/2009 YATES DO, KARO K 599.71 Gross Hematuria 10/20/2009 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, VALERIE S 599.71 Gross Hematuria 10/20/2009 YATES DO, KARO K 599.71 Gross Hematuria 10/20/2009 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, VALERIE S 599.71 Gross Hematuria 10/20/2009 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, VALERIE S 599.71 Gross Hematuria 10/20/2009 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, VALERIE S 599.71 Gross Hematuria 10/20/2009 YATES DO, KARO K 599.71 Gross Hematuria 10/20/2009 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, VALERIE S 599.71 Gross Hematuria 10/27/2009 YATES [...] KARO K 788.41 Urinary Frequency 10/27/2009 ESPAÑA BLINDSTITCH LAPEL PADDER, ZORAIDA R 305.1 NICOTINE DEPENDENCE 10/27/2009 ESPAÑA BLINDSTITCH LAPEL PADDER, ZORAIDA R 307.40 Insomnia 10/27/2009 ESPAÑA BLINDSTITCH LAPEL PADDER, ZORAIDA R 536.8 Dyspepsia And Other Specified Disorders Of Function Of Stomach 10/27/2009 ESPAÑA BLINDSTITCH LAPEL PADDER, ZORAIDA R 788.41 Urinary Frequency 10/27/2009 305.1 NICOTINE DEPENDENCE 10/27/2009 307.40 Insomnia 10/27/2009 536.8 Dyspepsia And Other Specified Disorders Of Function Of Stomach 10/27/2009 788.41 Urinary Frequency 10/27/2009 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, VALERIE S 305.1 NICOTINE DEPENDENCE 10/27/2009 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, VALERIE S 307.40 Insomnia 10/27/2009 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, VALERIE S 536.8 Dyspepsia And Other Specified Disorders Of Function Of Stomach 10/27/2009 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, VALERIE S 788.41 Urinary Frequency 10/27/2009 YATES DO, KARO K 305.1 NICOTINE DEPENDENCE 10/27/2009 YATES DO, KARO K 307.40 Insomnia 10/27/2009 YATES DO, KARO K 536.8 Dyspepsia And Other Specified Disorders Of Function Of Stomach 10/27/2009 YATES DO, KARO K 788.41 Urinary Frequency 10/27/2009 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, VALERIE S 305.1 NICOTINE DEPENDENCE 10/27/2009 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, VALERIE S 307.40 Insomnia 10/27/2009 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, VALERIE S 536.8 Dyspepsia And Other Specified Disorders Of Function Of Stomach 10/27/2009 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, VALERIE S 788.41 Urinary Frequency 10/27/2009 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, VALERIE S 305.1 NICOTINE DEPENDENCE 10/27/2009 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, VALERIE S 307.40 Insomnia 10/27/2009 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, VALERIE S 536.8 Dyspepsia And Other Specified Disorders Of Function Of Stomach 10/27/2009 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, VALERIE S 788.41 Urinary Frequency 10/27/2009 YATES [...] CAMARGO MD 788.41 Urinary Frequency 10/27/2009 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, VALERIE S 305.1 NICOTINE DEPENDENCE 10/27/2009 SALLY PERSAUDN, VALERIE S 307.40 Insomnia 10/27/2009 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, VALERIE S 536.8 Dyspepsia And Other Specified Disorders Of Function Of Stomach 10/27/2009 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, VALERIE S 788.41 Urinary Frequency 10/27/2009 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, VALERIE S 305.1 NICOTINE DEPENDENCE 10/27/2009 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, VALERIE S 307.40 Insomnia 10/27/2009 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, VAELRIE S 536.8 Dyspepsia And Other Specified Disorders Of Function Of Stomach 10/27/2009 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, VALERIE S 788.41 Urinary Frequency 10/27/2009 YATES DO, KARO K 305.1 NICOTINE DEPENDENCE 10/27/2009 YATES DO, KARO K 307.40 Insomnia 10/27/2009 YATES DO, KARO K 536.8 Dyspepsia And Other Specified Disorders Of Function Of Stomach 10/27/2009 YATES DO, KARO K 788.41 Urinary Frequency 10/27/2009 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, VALERIE S 305.1 NICOTINE DEPENDENCE 10/27/2009 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, VALERIE S 307.40 Insomnia 10/27/2009 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, VALERIE S 536.8 Dyspepsia And Other Specified Disorders Of Function Of Stomach 10/27/2009 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, VALERIE S 788.41 Urinary Frequency 10/27/2009 YATES DO, KARO K 305.1 NICOTINE DEPENDENCE 10/27/2009 YATES DO, KARO K 307.40 Insomnia 10/27/2009 YATES DO, KARO K 536.8 Dyspepsia And Other Specified Disorders Of Function Of Stomach 10/27/2009 YATES DO, KARO K 788.41 Urinary Frequency 10/27/2009 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, VALERIE S 305.1 NICOTINE DEPENDENCE 10/27/2009 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, VALERIE S 307.40 Insomnia 10/27/2009 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, VALERIE S 536.8 Dyspepsia And Other Specified Disorders Of Function Of Stomach 10/27/2009 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, VALERIE S 788.41 Urinary Frequency 10/27/2009 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, VALERIE S 305.1 NICOTINE DEPENDENCE 10/27/2009 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, VALERIE S 307.40 Insomnia 10/27/2009 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, VALERIE S 536.8 Dyspepsia And Other Specified Disorders Of Function Of Stomach 10/27/2009 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, VALERIE S 788.41 Urinary Frequency 10/27/2009 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, VALERIE S 305.1 NICOTINE DEPENDENCE 10/27/2009 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, VALERIE S 307.40 Insomnia 10/27/2009 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, VALERIE S 536.8 Dyspepsia And Other Specified Disorders Of Function Of Stomach 10/27/2009 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, VALERIE S 788.41 Urinary Frequency 10/27/2009 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, VALERIE S 305.1 NICOTINE DEPENDENCE 10/27/2009 ASLLY BLINDSTITCH LAPEL PADDER, VALERIE S 307.40 Insomnia 10/27/2009 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, VALERIE S 536.8 Dyspepsia And Other Specified Disorders Of Function Of Stomach 10/27/2009 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, VALERIE S 788.41 Urinary Frequency 10/27/2009 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, VALERIE S 305.1 NICOTINE DEPENDENCE 10/27/2009 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, VALERIE S 307.40 Insomnia 10/27/2009 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, VALERIE S 536.8 Dyspepsia And Other Specified Disorders Of Function Of Stomach 10/27/2009 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, VALERIE S 788.41 Urinary Frequency 10/27/2009 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, VALERIE S 305.1 NICOTINE DEPENDENCE 10/27/2009 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, VALERIE S 307.40 Insomnia 10/27/2009 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, VALERIE S 536.8 Dyspepsia And Other Specified Disorders Of Function Of Stomach 10/27/2009 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, VALERIE S 788.41 Urinary Frequency 10/27/2009 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, VALERIE S 305.1 NICOTINE DEPENDENCE 10/27/2009 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, VALERIE S 307.40 Insomnia 10/27/2009 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, VALERIE S 536.8 Dyspepsia And Other Specified Disorders Of Function Of Stomach 10/27/2009 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, VALERIE S 788.41 Urinary Frequency 10/27/2009 YATES DO, KARO K 305.1 NICOTINE DEPENDENCE 10/27/2009 YATES DO, KARO K 307.40 Insomnia 10/27/2009 YATES DO, KARO K 536.8 Dyspepsia And Other Specified Disorders Of Function Of Stomach 10/27/2009 YATES DO, KARO K 788.41 Urinary Frequency 10/27/2009 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, VALERIE S 305.1 NICOTINE DEPENDENCE 10/27/2009 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, VALERIE S 307.40 Insomnia 10/27/2009 SALLY BLINDSTITCH LAPEL PADDER, VALERIE S 536.8 Dyspepsia And Other Specified Disorders Of Function Of Stomach 10/27/2009 SALLY BLINDSTITCH LAPEL PADDER, VALERIE S 788.41 Urinary Frequency 10/27/2009 YATES DO, KARO K 305.1 NICOTINE DEPENDENCE 10/27/2009 YATES DO, KARO K 307.40 Insomnia 10/27/2009 YATES DO, KARO K 536.8 Dyspepsia And Other Specified Disorders Of Function Of Stomach 10/27/2009 AYTES DO, KARO K 788.41 Urinary Frequency 10/27/2009 SALLY BLINDSTITCH LAPEL PADDER, VALERIE S 305.1 NICOTINE DEPENDENCE 10/27/2009 SALLY BLINDSTITCH LAPEL PADDER, VALERIE S 307.40 Insomnia 10/27/2009 SALLY BLINDSTITCH LAPEL PADDER, VALERIE S 536.8 Dyspepsia And Other Specified Disorders Of Function Of Stomach 10/27/2009 SALLY BLINDSTITCH LAPEL PADDER, VALERIE S 788.41 Urinary Frequency 10/27/2009 SALLY BLINDSTITCH LAPEL PADDER, VALERIE S 305.1 NICOTINE DEPENDENCE 10/27/2009 SALLY BLINDSTITCH LAPEL PADDER, VALERIE S 307.40 Insomnia 10/27/2009 SALLY BLINDSTITCH LAPEL PADDER, VALERIE S 536.8 Dyspepsia And Other Specified Disorders Of Function Of Stomach 10/27/2009 SALLY BLINDSTITCH LAPEL PADDER, VALERIE S 788.41 Urinary Frequency 10/27/2009 SALLY BLINDSTITCH LAPEL PADDER, VALERIE S 305.1 NICOTINE DEPENDENCE 10/27/2009 SALLY BLINDSTITCH LAPEL PADDER, VALERIE S 307.40 Insomnia 10/27/2009 SALLY BLINDSTITCH LAPEL PADDER, VALERIE S 536.8 Dyspepsia And Other Specified Disorders Of Function Of Stomach 10/27/2009 SALLY BLINDSTITCH LAPEL PADDER, VALERIE S 788.41 Urinary Frequency 10/27/2009 YATES DO, KARO K 305.1 NICOTINE DEPENDENCE 10/27/2009 YATES DO, KARO K 307.40 Insomnia 10/27/2009 YATES DO, KARO K 536.8 Dyspepsia And Other Specified Disorders Of Function Of Stomach 10/27/2009 YATES DO, KARO K 788.41 Urinary Frequency 10/27/2009 SALLY BLINDSTITCH LAPEL PADDER, VALERIE S 305.1 NICOTINE DEPENDENCE 10/27/2009 SALLY BLINDSTITCH LAPEL PADDER, VALERIE S 307.40 Insomnia 10/27/2009 SALLY BLINDSTITCH LAPEL PADDER, VALERIE S 536.8 Dyspepsia And Other Specified Disorders Of Function Of Stomach 10/27/2009 SALLY BLINDSTITCH LAPEL PADDER, VALERIE S 788.41 Urinary Frequency 12/03/2009 YATES DO, KARO K 564.00 Constipation 12/03/2009 YATES DO, KARO K 564.00 Constipation 12/03/2009 ZORAIDA ESPAÑA APRN R 564.00 Constipation 12/03/2009 564.00 Constipation 12/03/2009 SALLY BLINDSTITCH LAPEL PADDER, VALERIE S 564.00 Constipation 12/03/2009 YATES DO, KARO K 564.00 Constipation 12/03/2009 SALLY BLINDSTITCH LAPEL PADDER, VALERIE S 564.00 Constipation 12/03/2009 SALLY BLINDSTITCH LAPEL PADDER, VALERIE S 564.00 Constipation 12/03/2009 YATES DO KARO K 564.00 Constipation 12/03/2009 564.00 Constipation 12/03/2009 564.00 Constipation 12/03/2009 564.00 Constipation 12/03/2009 MICHELLE CAMARGO MD 564.00 Constipation 12/03/2009 SALLY BLINDSTITCH LAPEL PADDER, VALERIE S 564.00 Constipation 12/03/2009 SALLY BLINDSTITCH LAPEL PADDER, VALERIE S 564.00 Constipation 12/03/2009 YATES DO, KARO K 564.00 Constipation 12/03/2009 SALLY BLINDSTITCH LAPEL PADDER, VALERIE S 564.00 Constipation 12/03/2009 YATES DO, KARO K 564.00 Constipation 12/03/2009 SALLY BLINDSTITCH LAPEL PADDER, VALERIE S 564.00 Constipation 12/03/2009 SALLY BLINDSTITCH LAPEL PADDER, VALERIE S 564.00 Constipation 12/03/2009 SALLY BLINDSTITCH LAPEL PADDER, VALERIE S 564.00 Constipation 12/03/2009 SALLY BLINDSTITCH LAPEL PADDER, VALERIE S 564.00 Constipation 12/03/2009 SALLY BLINDSTITCH LAPEL PADDER, VALERIE S 564.00 Constipation 12/03/2009 SALLY BLINDSTITCH LAPEL PADDER, VALERIE S 564.00 Constipation 12/03/2009 SALLY BLINDSTITCH LAPEL PADDER, VALERIE S 564.00 Constipation 12/03/2009 YATES DO KARO K 564.00 Constipation 12/03/2009 SALLY BLINDSTITCH LAPEL PADDER, VALERIE S 564.00 Constipation 12/03/2009 YATES DO, KARO K 564.00 Constipation 12/03/2009 SALLY BLINDSTITCH LAPEL PADDER, AVLERIE S 564.00 Constipation 12/03/2009 SALLY BLINDSTITCH LAPEL PADDER, VALERIE S 564.00 Constipation 12/03/2009 SALLY BLINDSTITCH LAPEL PADDER, VALERIE S 564.00 Constipation 12/03/2009 YATES DO, KARO K 564.00 Constipation 12/03/2009 SALLY BLINDSTITCH LAPEL PADDER, VALERIE S 564.00 Constipation 02/22/2010 Ot 530.81 02/22/2010 Ot 789.09 02/22/2010 Ot V12.72 05/11/2010 YATES DO, KARO K 724.5 Back Pain, General 05/11/2010 YATES DO KARO K 724.5 Back Pain, General 05/11/2010 ZORAIDA ESPAÑA APRN 724.5 Back Pain, General 05/11/2010 724.5 Back Pain, General 05/11/2010 SALLY BLINDSTITCH LAPEL PADDER VALERIE S 724.5 Back Pain, General 05/11/2010 YATES DO KARO K 724.5 Back Pain, General 05/11/2010 SALLY BLINDSTITCH LAPEL PADDER, VALERIE S 724.5 Back Pain, General 05/11/2010 SALLY BLINDSTITCH LAPEL PADDER, VALERIE S 724.5 Back Pain, General 05/11/2010 YATES DO KARO K 724.5 Back Pain, General 05/11/2010 724.5 Back Pain, General 05/11/2010 724.5 Back Pain, General 05/11/2010 724.5 Back Pain, General 05/11/2010 MARY JO ABRAMS, MICHELLE 724.5 Back Pain, General 05/11/2010 SALLY BLINDSTITCH LAPEL PADDER, VALERIE S 724.5 Back Pain, General 05/11/2010 SALLY BLINDSTITCH LAPEL PADDER, VALERIE S 724.5 Back Pain, General 05/11/2010 YATES DO KARO K 724.5 Back Pain, General 05/11/2010 SALLY BLINDSTITCH LAPEL PADDER, VALERIE S 724.5 Back Pain, General 05/11/2010 YATES DO KARO K 724.5 Back Pain, General 05/11/2010 SALLY BLINDSTITCH LAPEL PADDER, VALERIE S 724.5 Back Pain, General 05/11/2010 SALLY BLINDSTITCH LAPEL PADDER, VALERIE S 724.5 Back Pain, General 05/11/2010 SALLY BLINDSTITCH LAPEL PADDER, VALERIE S 724.5 Back Pain, General 05/11/2010 SALLY BLINDSTITCH LAPEL PADDER, VALERIE S 724.5 Back Pain, General 05/11/2010 SALLY BLINDSTITCH LAPEL PADDER, VALERIE S 724.5 Back Pain, General 05/11/2010 SALLY BLINDSTITCH LAPEL PADDER, VALERIE S 724.5 Back Pain, General 05/11/2010 SALLY BLINDSTITCH LAPEL PADDER, VALERIE S 724.5 Back Pain, General 05/11/2010 YATES DO, KARO K 724.5 Back Pain, General 05/11/2010 SALLY BLINDSTITCH LAPEL PADDER, VALERIE S 724.5 Back Pain, General 05/11/2010 YATES DO, KARO K 724.5 Back Pain, General 05/11/2010 SALLY BLINDSTITCH LAPEL PADDER, VALERIE S 724.5 Back Pain, General 05/11/2010 SALLY BLINDSTITCH LAPEL PADDER, VALERIE S 724.5 Back Pain, General 05/11/2010 SALLY BLINDSTITCH LAPEL PADDER, VALERIE S 724.5 Back Pain, General 05/11/2010 YATES DO, KARO K 724.5 Back Pain, General 05/11/2010 SALLY BLINDSTITCH LAPEL PADDER, VALERIE S 724.5 Back Pain, General 05/21/2010 YATES DO KARO K 627.9 Menopausal And Postmenopausal Disorder Unspecified 05/21/2010 YATES DO KARO K 722.10 Displacement Of Lumbar Intervertebral Disc Without Myelopathy 05/21/2010 YATES DO KARO K V72.31 Duplicate Maker Exam, Routine 05/21/2010 YATES DO KARO K 627.9 Menopausal And Postmenopausal Disorder Unspecified 05/21/2010 YATES DO KARO K 722.10 Displacement Of Lumbar Intervertebral Disc Without Myelopathy 05/21/2010 YATES DO KARO K V72.31 Duplicate Maker Exam, Routine 05/21/2010 ZORAIDA ESPAÑA APRN R 627.9 Menopausal And Postmenopausal Disorder Unspecified 05/21/2010 ZORAIDA ESPAÑA APRN R 722.10 Displacement Of Lumbar Intervertebral Disc Without Myelopathy 05/21/2010 ZORAIDA ESPAÑA APRN V72.31 Duplicate Maker Exam, Routine 05/21/2010 627.9 Menopausal And Postmenopausal Disorder Unspecified 05/21/2010 722.10 Displacement Of Lumbar Intervertebral Disc Without Myelopathy 05/21/2010 V72.31 Duplicate Maker Exam, Routine 05/21/2010 SALLY BLINDSTITCH LAPEL PADDER VALERIE S 627.9 Menopausal And Postmenopausal Disorder Unspecified 05/21/2010 SALLY BLINDSTITCH LAPEL PADDER VALERIE S 722.10 Displacement Of Lumbar Intervertebral Disc Without Myelopathy 05/21/2010 SALLY BLINDSTITCH LAPEL PADDER VALERIE S V72.31 Duplicate Maker Exam, Routine 05/21/2010 YATES DO KARO K 627.9 Menopausal And Postmenopausal Disorder Unspecified 05/21/2010 YATES DO KARO K 722.10 Displacement Of Lumbar Intervertebral Disc Without Myelopathy 05/21/2010 YATES DO KARO K V72.31 Duplicate Maker Exam, Routine 05/21/2010 SALLY BLINDSTITCH LAPEL PADDER VALERIE S 627.9 Menopausal And Postmenopausal Disorder Unspecified 05/21/2010 SALLY BLINDSTITCH LAPEL PADDER VALERIE S 722.10 Displacement Of Lumbar Intervertebral Disc Without Myelopathy 05/21/2010 SALLY BLINDSTITCH LAPEL PADDER VALERIE S V72.31 Duplicate Maker Exam, Routine 05/21/2010 SALLY BLINDSTITCH LAPEL PADDER VALERIE S 627.9 Menopausal And Postmenopausal Disorder Unspecified 05/21/2010 SALLY BLINDSTITCH LAPEL PADDER, VALERIE S 722.10 Displacement Of Lumbar Intervertebral Disc Without Myelopathy 05/21/2010 SALLY BLINDSTITCH LAPEL PADDER VALERIE S V72.31 Duplicate Maker Exam, Routine 05/21/2010 MILAN DO KARO K 627.9 Menopausal And Postmenopausal Disorder Unspecified 05/21/2010 YATES DO KARO K 722.10 Displacement Of Lumbar Intervertebral Disc Without Myelopathy 05/21/2010 YATES DO KARO K V72.31 Duplicate Maker Exam, Routine 05/21/2010 627.9 Menopausal And Postmenopausal Disorder Unspecified 05/21/2010 722.10 Displacement Of Lumbar Intervertebral Disc Without Myelopathy 05/21/2010 V72.31 Duplicate Maker Exam, Routine 05/21/2010 627.9 Menopausal And Postmenopausal Disorder Unspecified 05/21/2010 722.10 Displacement Of Lumbar Intervertebral Disc Without Myelopathy 05/21/2010 V72.31 Duplicate Maker Exam, Routine 05/21/2010 627.9 Menopausal And Postmenopausal Disorder Unspecified 05/21/2010 722.10 Displacement Of Lumbar Intervertebral Disc Without Myelopathy 05/21/2010 V72.31 Duplicate Maker Exam, Routine 05/21/2010 MICHELLE CAMARGO MD 627.9 Menopausal And Postmenopausal Disorder Unspecified 05/21/2010 MICHELLE CAMARGO MD 722.10 Displacement Of Lumbar Intervertebral Disc Without Myelopathy 05/21/2010 MICHELLE CAMARGO MD V72.31 Duplicate Maker Exam, Routine 05/21/2010 SALLY BLINDSTITCH LAPEL PADDER, VALERIE S 627.9 Menopausal And Postmenopausal Disorder Unspecified 05/21/2010 SALLY BLINDSTITCH LAPEL PADDER, VALERIE S 722.10 Displacement Of Lumbar Intervertebral Disc Without Myelopathy 05/21/2010 SALLY BLINDSTITCH LAPEL PADDER, VALERIE S V72.31 Duplicate Maker Exam, Routine 05/21/2010 SALLY BLINDSTITCH LAPEL PADDER, VALERIE S 627.9 Menopausal And Postmenopausal Disorder Unspecified 05/21/2010 SALLY BLINDSTITCH LAPEL PADDER, VALERIE S 722.10 Displacement Of Lumbar Intervertebral Disc Without Myelopathy 05/21/2010 SALLY BLINDSTITCH LAPEL PADDER, VALERIE S V72.31 Duplicate Maker Exam, Routine 05/21/2010 YATES DO, KARO K 627.9 Menopausal And Postmenopausal Disorder Unspecified 05/21/2010 YATES DO, KARO K 722.10 Displacement Of Lumbar Intervertebral Disc Without Myelopathy 05/21/2010 YATES DO, KARO K V72.31 Duplicate Maker Exam, Routine 05/21/2010 SALLY BLINDSTITCH LAPEL PADDER, VALERIE S 627.9 Menopausal And Postmenopausal Disorder Unspecified 05/21/2010 SALLY BLINDSTITCH LAPEL PADDER, VALERIE S 722.10 Displacement Of Lumbar Intervertebral Disc Without Myelopathy 05/21/2010 SALLY BLINDSTITCH LAPEL PADDER, VALEIRE S V72.31 Duplicate Maker Exam, Routine 05/21/2010 YATES DO, KARO K 627.9 Menopausal And Postmenopausal Disorder Unspecified 05/21/2010 YATES DO, KARO K 722.10 Displacement Of Lumbar Intervertebral Disc Without Myelopathy 05/21/2010 YATES DO, KARO K V72.31 Duplicate Maker Exam, Routine 05/21/2010 SALLY BLINDSTITCH LAPEL PADDER, VALERIE S 627.9 Menopausal And Postmenopausal Disorder Unspecified 05/21/2010 SALLY BLINDSTITCH LAPEL PADDER, VALERIE S 722.10 Displacement Of Lumbar Intervertebral Disc Without Myelopathy 05/21/2010 SALLY BLINDSTITCH LAPEL PADDER, VALERIE S V72.31 Duplicate Maker Exam, Routine 05/21/2010 SALLY BLINDSTITCH LAPEL PADDER, VALERIE S 627.9 Menopausal And Postmenopausal Disorder Unspecified 05/21/2010 SALLY BLINDSTITCH LAPEL PADDER, VALERIE S 722.10 Displacement Of Lumbar Intervertebral Disc Without Myelopathy 05/21/2010 SALLY BLINDSTITCH LAPEL PADDER, VALERIE S V72.31 Duplicate Maker Exam, Routine 05/21/2010 SALLY BLINDSTITCH LAPEL PADDER, VALERIE S 627.9 Menopausal And Postmenopausal Disorder Unspecified 05/21/2010 SALLY BLINDSTITCH LAPEL PADDER, VALERIE S 722.10 Displacement Of Lumbar Intervertebral Disc Without Myelopathy 05/21/2010 SALLY BLINDSTITCH LAPEL PADDER, VALERIE S V72.31 Duplicate Maker Exam, Routine 05/21/2010 SALLY BLINDSTITCH LAPEL PADDER, VALERIE S 627.9 Menopausal And Postmenopausal Disorder Unspecified 05/21/2010 SALLY BLINDSTITCH LAPEL PADDER, VALERIE S 722.10 Displacement Of Lumbar Intervertebral Disc Without Myelopathy 05/21/2010 SALLY BLINDSTITCH LAPEL PADDER, VALERIE S V72.31 Duplicate Maker Exam, Routine 05/21/2010 SALLY BLINDSTITCH LAPEL PADDER, VALERIE S 627.9 Menopausal And Postmenopausal Disorder Unspecified 05/21/2010 SALLY BLINDSTITCH LAPEL PADDER, VALERIE S 722.10 Displacement Of Lumbar Intervertebral Disc Without Myelopathy 05/21/2010 SALLY BLINDSTITCH LAPEL PADDER, VALERIE S V72.31 Duplicate Maker Exam, Routine 05/21/2010 SALLY BLINDSTITCH LAPEL PADDER, VALERIE S 627.9 Menopausal And Postmenopausal Disorder Unspecified 05/21/2010 SALLY BLINDSTITCH LAPEL PADDER, VALERIE S 722.10 Displacement Of Lumbar Intervertebral Disc Without Myelopathy 05/21/2010 SALLY BLINDSTITCH LAPEL PADDER, VALERIE S V72.31 Duplicate Maker Exam, Routine 05/21/2010 SALLY BLINDSTITCH LAPEL PADDER, VALERIE S 627.9 Menopausal And Postmenopausal Disorder Unspecified 05/21/2010 SALLY BLINDSTITCH LAPEL PADDER, VALERIE S 722.10 Displacement Of Lumbar Intervertebral Disc Without Myelopathy 05/21/2010 SALLY BLINDSTITCH LAPEL PADDER, VALERIE S V72.31 Duplicate Maker Exam, Routine 05/21/2010 KARO YATES DO K 627.9 Menopausal And Postmenopausal Disorder Unspecified 05/21/2010 YATES DO, KARO K 722.10 Displacement Of Lumbar Intervertebral Disc Without Myelopathy 05/21/2010 YATES DO, KARO K V72.31 Duplicate Maker Exam, Routine 05/21/2010 SALLY BLINDSTITCH LAPEL PADDER, VALERIE S 627.9 Menopausal And Postmenopausal Disorder Unspecified 05/21/2010 SALLY BLINDSTITCH LAPEL PADDER, VALERIE S 722.10 Displacement Of Lumbar Intervertebral Disc Without Myelopathy 05/21/2010 SALLY BLINDSTITCH LAPEL PADDER, VALERIE S V72.31 Duplicate Maker Exam, Routine 05/21/2010 YATES DO, KARO K 627.9 Menopausal And Postmenopausal Disorder Unspecified 05/21/2010 YATES DO, KARO K 722.10 Displacement Of Lumbar Intervertebral Disc Without Myelopathy 05/21/2010 YATES DO, KARO K V72.31 Duplicate Maker Exam, Routine 05/21/2010 SALLY BLINDSTITCH LAPEL PADDER, VALERIE S 627.9 Menopausal And Postmenopausal Disorder Unspecified 05/21/2010 SALLY BLINDSTITCH LAPEL PADDER, VALERIE S 722.10 Displacement Of Lumbar Intervertebral Disc Without Myelopathy 05/21/2010 SALLY BLINDSTITCH LAPEL PADDER, VALERIE S V72.31 Duplicate Maker Exam, Routine 05/21/2010 SALLY BLINDSTITCH LAPEL PADDER, VALERIE S 627.9 Menopausal And Postmenopausal Disorder Unspecified 05/21/2010 SALLY BLINDSTITCH LAPEL PADDER, VALERIE S 722.10 Displacement Of Lumbar Intervertebral Disc Without Myelopathy 05/21/2010 SALLY BLINDSTITCH LAPEL PADDER, VALERIE S V72.31 Duplicate Maker Exam, Routine 05/21/2010 SALLY BLINDSTITCH LAPEL PADDER, VALERIE S 627.9 Menopausal And Postmenopausal Disorder Unspecified 05/21/2010 SALLY BLINDSTITCH LAPEL PADDER, VALERIE S 722.10 Displacement Of Lumbar Intervertebral Disc Without Myelopathy 05/21/2010 SALLY BLINDSTITCH LAPEL PADDER, VALERIE S V72.31 Duplicate Maker Exam, Routine 05/21/2010 YATES DO, KARO K 627.9 Menopausal And Postmenopausal Disorder Unspecified 05/21/2010 YATES DO, KARO K 722.10 Displacement Of Lumbar Intervertebral Disc Without Myelopathy 05/21/2010 YATES DO, KARO K V72.31 Duplicate Maker Exam, Routine 05/21/2010 SALLY BLINDSTITCH LAPEL PADDER, VALERIE S 627.9 Menopausal And Postmenopausal Disorder Unspecified 05/21/2010 VALERIE ZAVALA APRN S 722.10 Displacement Of Lumbar Intervertebral Disc Without Myelopathy 05/21/2010 ADRIAN ZAVALA APRNA S V72.31 Duplicate Maker Exam, Routine 06/23/2010 MILAN RAMIREZ KARO K [...] Other Slipping Tripping Or Stumbling 10/13/2010 SALLY BLINDSTITCH LAPEL PADDER, VALERIE S 719.46 Knee Pain 10/13/2010 SALLY BLINDSTITCH LAPEL PADDERSERINAVALERIE S E885.9 Accidental Fall From Other Slipping Tripping Or Stumbling 10/13/2010 YATES DOHALEYA K 719.46 Knee Pain 10/13/2010 YATES DO KARO K E885.9 Accidental Fall From Other Slipping Tripping Or Stumbling 10/13/2010 SALLY BLINDSTITCH LAPEL PADDER VALERIE S 719.46 Knee Pain 10/13/2010 SALLY BLINDSTITCH LAPEL PADDERSERINAVALERIE S E885.9 Accidental Fall From Other Slipping Tripping Or Stumbling 10/13/2010 SALLY BLINDSTITCH LAPEL PADDER, VALERIE S 719.46 Knee Pain 10/13/2010 SALLY BLINDSTITCH LAPEL PADDER, VALERIE S E885.9 Accidental Fall From Other [...] Other Slipping Tripping Or Stumbling 10/13/2010 SALLY BLINDSTITCH LAPEL PADDER, VALERIE S 719.46 Knee Pain 10/13/2010 SERINA ZAVALA APRNNDA S E885.9 Accidental Fall From Other Slipping Tripping Or Stumbling 10/13/2010 YATES DO, KARO K 719.46 Knee Pain 10/13/2010 YATES DO, KARO K E885.9 Accidental Fall From Other Slipping Tripping Or Stumbling 10/13/2010 SALLY BLINDSTITCH LAPEL PADDER, VALERIE S 719.46 Knee Pain 10/13/2010 SALLY BLINDSTITCH LAPEL PADDER, VALERIE S E885.9 Accidental Fall From Other Slipping Tripping Or Stumbling 10/13/2010 YATES DO, KARO K 719.46 Knee Pain 10/13/2010 YATES DO, KARO K E885.9 Accidental Fall From Other Slipping Tripping Or Stumbling 10/13/2010 SALLY BLINDSTITCH LAPEL PADDER, VALERIE S 719.46 Knee Pain 10/13/2010 SALLY BLINDSTITCH LAPEL PADDER, VALERIE S E885.9 Accidental Fall From Other Slipping Tripping Or Stumbling 10/13/2010 SALLY BLINDSTITCH LAPEL PADDER, VALERIE S 719.46 Knee Pain 10/13/2010 SALLY BLINDSTITCH LAPEL PADDER, VALERIE S E885.9 Accidental Fall From Other Slipping Tripping Or Stumbling 10/13/2010 SALLY BLINDSTITCH LAPEL PADDER, VALERIE S 719.46 Knee Pain 10/13/2010 SALLY BLINDSTITCH LAPEL PADDER, VALERIE S E885.9 Accidental Fall From Other Slipping Tripping Or Stumbling 10/13/2010 SALLY BLINDSTITCH LAPEL PADDER, VALERIE S 719.46 Knee Pain 10/13/2010 SALLY BLINDSTITCH LAPEL PADDER, VALERIE S E885.9 Accidental Fall From Other Slipping Tripping Or Stumbling 10/13/2010 SALLY BLINDSTITCH LAPEL PADDER, VALERIE S 719.46 Knee Pain 10/13/2010 SALLY BLINDSTITCH LAPEL PADDER, VALERIE S E885.9 Accidental Fall From Other Slipping Tripping Or Stumbling 10/13/2010 SALLY BLINDSTITCH LAPEL PADDER, VALERIE S 719.46 Knee Pain 10/13/2010 SALLY BLINDSTITCH LAPEL PADDER, VALERIE S E885.9 Accidental Fall From Other Slipping Tripping Or Stumbling 10/13/2010 SALLY BLINDSTITCH LAPEL PADDER, VALERIE S 719.46 Knee Pain 10/13/2010 SALLY BLINDSTITCH LAPEL PADDER, VALERIE S E885.9 Accidental Fall From Other Slipping Tripping Or Stumbling 10/13/2010 YATES DO, KARO K 719.46 Knee Pain 10/13/2010 YATES DO, KARO K E885.9 Accidental Fall From Other Slipping Tripping Or Stumbling 10/13/2010 SALLY BLINDSTITCH LAPEL PADDER VALERIE S 719.46 Knee Pain 10/13/2010 SALLY BLINDSTITCH LAPEL PADDER VALERIE S E885.9 Accidental Fall From Other Slipping Tripping Or Stumbling 10/13/2010 YATES DO KARO K 719.46 Knee Pain 10/13/2010 YATES DO KARO K E885.9 Accidental Fall From Other Slipping Tripping Or Stumbling 10/13/2010 SALLY BLINDSTITCH LAPEL PADDER VALERIE S 719.46 Knee Pain 10/13/2010 SALLY BLINDSTITCH LAPEL PADDER VALERIE S E885.9 Accidental Fall From Other Slipping Tripping Or Stumbling 10/13/2010 SALLY BLINDSTITCH LAPEL PADDER VALERIE S 719.46 Knee Pain 10/13/2010 SALLY BLINDSTITCH LAPEL PADDER VALERIE S E885.9 Accidental Fall From Other Slipping Tripping Or Stumbling 10/13/2010 SALLY BLINDSTITCH LAPEL PADDER VALERIE S 719.46 Knee Pain 10/13/2010 SALLY BLINDSTITCH LAPEL PADDER VALERIE S E885.9 Accidental Fall From Other Slipping Tripping Or Stumbling 10/13/2010 YATES DO KARO K 719.46 Knee Pain 10/13/2010 YATES DO KARO K E885.9 Accidental Fall From Other Slipping Tripping Or Stumbling 10/13/2010 SALLY BLINDSTITCH LAPEL PADDER VALERIE S 719.46 Knee Pain 10/13/2010 SALLY BLINDSTITCH LAPEL PADDER VALERIE S E885.9 Accidental Fall From Other Slipping Tripping Or Stumbling 11/07/2010 Ot 722.52 LUMB/ LUMBOSAC DISC DEGEN 11/07/2010 Ot 724.2 LUMBAGO 11/11/2010 AYTES DO KARO K 401.1 HYPERTENSION, BENIGN ESSENTIAL 11/11/2010 YATES DO KARO K 401.1 HYPERTENSION, BENIGN ESSENTIAL 11/11/2010 ZORAIDA ESPAÑA APRN 401.1 HYPERTENSION, BENIGN ESSENTIAL 11/11/2010 401.1 HYPERTENSION, BENIGN ESSENTIAL 11/11/2010 SALLY BLINDSTITCH LAPEL PADDER, VALERIE S 401.1 HYPERTENSION, BENIGN ESSENTIAL 11/11/2010 YATES DO, KARO K 401.1 HYPERTENSION, BENIGN ESSENTIAL 11/11/2010 SALLY BLINDSTITCH LAPEL PADDER, VALERIE S 401.1 HYPERTENSION, BENIGN ESSENTIAL 11/11/2010 SALLY BLINDSTITCH LAPEL PADDER, VALERIE S 401.1 HYPERTENSION, BENIGN ESSENTIAL 11/11/2010 YATES DO, KARO K 401.1 HYPERTENSION, BENIGN ESSENTIAL 11/11/2010 401.1 HYPERTENSION, BENIGN ESSENTIAL 11/11/2010 401.1 HYPERTENSION, BENIGN ESSENTIAL 11/11/2010 401.1 HYPERTENSION, BENIGN ESSENTIAL 11/11/2010 MARY JO ABRAMS, MICHELLE 401.1 HYPERTENSION, BENIGN ESSENTIAL 11/11/2010 SALLY BLINDSTITCH LAPEL PADDER, VALERIE S 401.1 HYPERTENSION, BENIGN ESSENTIAL 11/11/2010 SALLY BLINDSTITCH LAPEL PADDER, VALERIE S 401.1 HYPERTENSION, BENIGN ESSENTIAL 11/11/2010 YATES DO, KARO K 401.1 HYPERTENSION, BENIGN ESSENTIAL 11/11/2010 SALLY BLINDSTITCH LAPEL PADDER, VALERIE S 401.1 HYPERTENSION, BENIGN ESSENTIAL 11/11/2010 YATES DO, KARO K 401.1 HYPERTENSION, BENIGN ESSENTIAL 11/11/2010 SALLY BLINDSTITCH LAPEL PADDER, VALERIE S 401.1 HYPERTENSION, BENIGN ESSENTIAL 11/11/2010 SALLY BLINDSTITCH LAPEL PADDER, VALERIE S 401.1 HYPERTENSION, BENIGN ESSENTIAL 11/11/2010 SALLY BLINDSTITCH LAPEL PADDER, VALERIE S 401.1 HYPERTENSION, BENIGN ESSENTIAL 11/11/2010 SALLY BLINDSTITCH LAPEL PADDER, VALERIE S 401.1 HYPERTENSION, BENIGN ESSENTIAL 11/11/2010 SALLY BLINDSTITCH LAPEL PADDER, VALERIE S 401.1 HYPERTENSION, BENIGN ESSENTIAL 11/11/2010 SALLY BLINDSTITCH LAPEL PADDER, VALERIE S 401.1 HYPERTENSION, BENIGN ESSENTIAL 11/11/2010 SALLY BLINDSTITCH LAPEL PADDER, VALERIE S 401.1 HYPERTENSION, BENIGN ESSENTIAL 11/11/2010 YATES DO, KARO K 401.1 HYPERTENSION, BENIGN ESSENTIAL 11/11/2010 SALLY BLINDSTITCH LAPEL PADDER, VALERIE S 401.1 HYPERTENSION, BENIGN ESSENTIAL 11/11/2010 YATES DO, KARO K 401.1 HYPERTENSION, BENIGN ESSENTIAL 11/11/2010 SALLY BLINDSTITCH LAPEL PADDER, VALERIE S 401.1 HYPERTENSION, BENIGN ESSENTIAL 11/11/2010 SALLY BL[employer] P[employer], VALERIE S 401.1 HYPERTENSION, BENIGN ESSENTIAL 11/11/2010 [...] Dx (3 Yrs And Above, Im) 03/09/2011 VAELRIE ZAVALA APRN S V04.81 Flu Dx (3 [...] (3 Yrs And Above, Im) 03/09/2011 SALLY [employer], VALERIE S V04.81 Flu Dx (3 Yrs And Above, Im) 03/09/2011 YATES DO, KARO K V04.81 Flu Dx (3 Yrs And Above, Im) 03/09/2011 SALLY BL[employer] P[employer], VALERIE S V04.81 Flu Dx (3 Yrs And Above, Im) 03/09/2011 YATES DO, KARO K V04.81 Flu Dx (3 Yrs And Above, Im) 03/09/2011 SALLY BL[employer] P[employer], VALERIE S V04.81 Flu Dx (3 Yrs And Above, Im) 03/09/2011 SALLY BL[employer] P[employer], VALERIE S V04.81 Flu Dx (3 Yrs And Above, Im) 03/09/2011 SALLY BL[employer] P[employer]DER, VALERIE S V04.81 Flu Dx (3 Yrs And Above, Im) 03/09/2011 SALLY BL[employer] P[employer], VALERIE S V04.81 Flu Dx (3 Yrs And Above, Im) 03/09/2011 SALLY BL[employer] P[employer], VALREIE S V04.81 Flu Dx (3 Yrs And Above, Im) 03/09/2011 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, 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 V04.81 Flu Dx (3 Yrs And Above, Im) 03/09/2011 SALLY BLINDSTITCH LAPEL PADDER, VALERIE S V04.81 Flu Dx (3 Yrs And Above, Im) 03/09/2011 YATES DO, KARO K V04.81 Flu Dx (3 Yrs And Above, Im) 03/09/2011 SALLY BLINDSTITCH LAPEL PADDER, VALERIE S V04.81 Flu Dx (3 Yrs And Above, Im) 03/09/2011 YATES DO, KARO K V04.81 Flu Dx (3 Yrs And Above, Im) 03/09/2011 SALLY BLINDSTITCH LAPEL PADDER, VALERIE S V04.81 Flu Dx (3 Yrs And Above, Im) 03/09/2011 SALLY BLINDSTITCH LAPEL PADDER, VALERIE S V04.81 Flu Dx (3 Yrs And Above, Im) 03/09/2011 SALLY BLINDSTITCH LAPEL PADDER, VALERIE S V04.81 Flu Dx (3 Yrs And Above, Im) 03/09/2011 YATES DO, KARO K V04.81 Flu Dx (3 Yrs And Above, Im) 03/09/2011 SALLY BLINDSTITCH LAPEL PADDER, VALERIE S V04.81 Flu Dx (3 Yrs And Above, Im) 03/14/2011 YATES DO, KARO K 625.9 Pelvic Pain 03/14/2011 YATES DO, KARO K 791.0 Proteinuria 03/14/2011 YATES DO, KARO K 625.9 Pelvic Pain 03/14/2011 YATES DO, KARO K 791.0 Proteinuria 03/14/2011 ESPAÑA BLINDSTITCH LAPEL PADDER, ZORAIDA R 625.9 Pelvic Pain 03/14/2011 ESPAÑA BLINDSTITCH LAPEL PADDER, ZORAIDA R 791.0 Proteinuria 03/14/2011 625.9 Pelvic Pain 03/14/2011 791.0 Proteinuria 03/14/2011 SALLY BLINDSTITCH LAPEL PADDER, VALERIE S 625.9 Pelvic Pain 03/14/2011 SALLY BLINDSTITCH LAPEL PADDER, VALERIE S 791.0 Proteinuria 03/14/2011 YATES DO, KARO K 625.9 Pelvic Pain 03/14/2011 YATES DO, KARO K 791.0 Proteinuria 03/14/2011 SALLY BLINDSTITCH LAPEL PADDER, VALERIE S 625.9 Pelvic Pain 03/14/2011 SALLY BLINDSTITCH LAPEL PADDER, VALERIE S 791.0 Proteinuria 03/14/2011 SALLY BLINDSTITCH LAPEL PADDER, VALERIE S 625.9 Pelvic Pain 03/14/2011 SALLY BLINDSTITCH LAPEL PADDER, VALERIE S 791.0 Proteinuria 03/14/2011 YATES DO, KARO K 625.9 Pelvic Pain 03/14/2011 YATES DO, KARO K 791.0 Proteinuria 03/14/2011 625.9 Pelvic Pain 03/14/2011 791.0 Proteinuria 03/14/2011 625.9 Pelvic Pain 03/14/2011 791.0 Proteinuria 03/14/2011 625.9 Pelvic Pain 03/14/2011 791.0 Proteinuria 03/14/2011 MICHELLE CAMARGO MD 625.9 Pelvic Pain 03/14/2011 MICHELLE CAMARGO MD 791.0 Proteinuria 03/14/2011 SALLY BLINDSTITCH LAPEL PADDER, VALERIE S 625.9 Pelvic Pain 03/14/2011 SALLY BLINDSTITCH LAPEL PADDER, VALERIE S 791.0 Proteinuria 03/14/2011 SALLY BLINDSTITCH LAPEL PADDER, VALERIE S 625.9 Pelvic Pain 03/14/2011 SALLY BLINDSTITCH LAPEL PADDER, VALERIE S 791.0 Proteinuria 03/14/2011 YATES DO, KARO K 625.9 Pelvic Pain 03/14/2011 YATES DO, KARO K 791.0 Proteinuria 03/14/2011 SALLY BLINDSTITCH LAPEL PADDER, VALERIE S 625.9 Pelvic Pain 03/14/2011 SALLY BLINDSTITCH LAPEL PADDER, VALERIE S 791.0 Proteinuria 03/14/2011 YATES DO, KARO K 625.9 Pelvic Pain 03/14/2011 YATES DO, KARO K 791.0 Proteinuria 03/14/2011 SALLY BLINDSTITCH LAPEL PADDER, VALERIE S 625.9 Pelvic Pain 03/14/2011 SALLY BLINDSTITCH LAPEL PADDER, VALERIE S 791.0 Proteinuria 03/14/2011 SALLY BLINDSTITCH LAPEL PADDER, VALERIE S 625.9 Pelvic Pain 03/14/2011 SALLY BLINDSTITCH LAPEL PADDER, VALERIE S 791.0 Proteinuria 03/14/2011 SALLY BLINDSTITCH LAPEL PADDER, VALERIE S 625.9 Pelvic Pain 03/14/2011 SALLY BLINDSTITCH LAPEL PADDER, VALERIE S 791.0 Proteinuria 03/14/2011 SALLY BLINDSTITCH LAPEL PADDER, VALERIE S 625.9 Pelvic Pain 03/14/2011 SALLY BLINDSTITCH LAPEL PADDER, VALERIE S 791.0 Proteinuria 03/14/2011 SALLY BLINDSTITCH LAPEL PADDER, VALERIE S 625.9 Pelvic Pain 03/14/2011 SALLY BLINDSTITCH LAPEL PADDER, VALERIE S 791.0 Proteinuria 03/14/2011 SALLY BLINDSTITCH LAPEL PADDER, VALERIE S 625.9 Pelvic Pain 03/14/2011 SALLY BLINDSTITCH LAPEL PADDER, VALERIE S 791.0 Proteinuria 03/14/2011 SALLY BLINDSTITCH LAPEL PADDER, VALERIE S 625.9 Pelvic Pain 03/14/2011 SALLY BLINDSTITCH LAPEL PADDER, VALERIE S 791.0 Proteinuria 03/14/2011 YATES DO, KARO K 625.9 Pelvic Pain 03/14/2011 YATES DO, KARO K 791.0 Proteinuria 03/14/2011 SALLY BLINDSTITCH LAPEL PADDER, VALERIE S 625.9 Pelvic Pain 03/14/2011 SALLY BLINDSTITCH LAPEL PADDER, VALERIE S 791.0 Proteinuria 03/14/2011 YATES DO, KARO K 625.9 Pelvic Pain 03/14/2011 YATES DO, KARO K 791.0 Proteinuria 03/14/2011 SALLY BLINDSTITCH LAPEL PADDER, VALERIE S 625.9 Pelvic Pain 03/14/2011 SALLY BLINDSTITCH LAPEL PADDER, VALERIE S 791.0 Proteinuria 03/14/2011 SALLY BLINDSTITCH LAPEL PADDER, VALERIE S 625.9 Pelvic Pain 03/14/2011 SALLY BLINDSTITCH LAPEL PADDER, VALERIE S 791.0 Proteinuria 03/14/2011 SALLY BLINDSTITCH LAPEL PADDER, VALERIE S 625.9 Pelvic Pain 03/14/2011 SALLY BLINDSTITCH LAPEL PADDER, VALERIE S 791.0 Proteinuria 03/14/2011 YATES DO, KARO K 625.9 Pelvic Pain 03/14/2011 YATES DO, KARO K 791.0 Proteinuria 03/14/2011 SALLY BLINDSTITCH LAPEL PADDER, VALERIE S 625.9 Pelvic Pain 03/14/2011 SALLY BLINDSTITCH LAPEL PADDER, VALERIE S 791.0 Proteinuria 04/26/2011 Ot 614.6 [...] S 789.07 ABDOMINAL PAIN GENERALIZED 05/20/2011 SALLY BLINDSTITCH LAPEL PADDER, VALERIE S 300.02 AN GEN ANXIETY 05/20/2011 [...] S 300.02 AN GEN ANXIETY 05/20/2011 SALLY BLINDSTITCH LAPEL PADDER, VALERIE S 789.07 ABDOMINAL PAIN GENERALIZED 05/20/2011 SALLY BLINDSTITCH LAPEL PADDER, VALERIE S 300.02 AN GEN ANXIETY 05/20/2011 SALLY BLINDSTITCH LAPEL PADDER, VALERIE S 789.07 ABDOMINAL PAIN GENERALIZED 05/20/2011 SALLY BLINDSTITCH LAPEL PADDER, VALERIE S 300.02 AN GEN ANXIETY 05/20/2011 SALLY BLINDSTITCH LAPEL PADDER, VALERIE S 789.07 ABDOMINAL PAIN GENERALIZED 05/20/2011 SALLY PERSAUDN VALERIE S 300.02 AN GEN ANXIETY 05/20/2011 SALLY BLINDSTITCH LAPEL PADDER, VALERIE S 789.07 ABDOMINAL PAIN GENERALIZED 05/20/2011 YATES DO, KARO K 300.02 AN GEN ANXIETY 05/20/2011 YATES DO, KARO K 789.07 ABDOMINAL PAIN GENERALIZED 05/20/2011 SALLY PERSAUDN VALERIE S 300.02 AN GEN ANXIETY 05/20/2011 SALLY BLINDSTITCH LAPEL PADDER VALERIE S 789.07 ABDOMINAL PAIN GENERALIZED 05/20/2011 YATES DO, KARO K 300.02 AN GEN ANXIETY 05/20/2011 YATES DO, KARO K 789.07 ABDOMINAL PAIN GENERALIZED 05/20/2011 SALLY PERSAUDN, VALERIE S 300.02 AN GEN ANXIETY 05/20/2011 SALLYMARTY PERSAUDN, VALERIE S 789.07 ABDOMINAL PAIN GENERALIZED 05/20/2011 SALLYMARTY PERSAUDN VALERIE S 300.02 AN GEN ANXIETY 05/20/2011 SALLY BLINDSTITCH LAPEL PADDER VALERIE S 789.07 ABDOMINAL PAIN GENERALIZED 05/20/2011 SALLY BLINDSTITCH LAPEL PADDER VALERIE S 300.02 AN GEN ANXIETY 05/20/2011 SALLY PERSAUDN VALERIE S 789.07 ABDOMINAL PAIN GENERALIZED 05/20/2011 YATES DO, KARO K 300.02 AN GEN ANXIETY 05/20/2011 YATES DO, KARO K 789.07 ABDOMINAL PAIN GENERALIZED 05/20/2011 SALLY PERSAUDN VALERIE S 300.02 AN GEN ANXIETY 05/20/2011 SALLY BLINDSTITCH LAPEL PADDER, VALERIE S 789.07 ABDOMINAL PAIN GENERALIZED 06/09/2011 YATES DO, KARO K 796.2 Elevated Blood Pressure Reading Without Diagnosis Of Hypertension 06/09/2011 YAETS DO, KARO K 796.2 Elevated Blood Pressure Reading Without Diagnosis Of Hypertension 06/09/2011 TACO RIVERA ZORAIDA R 796.2 Elevated Blood Pressure Reading Without Diagnosis Of Hypertension 06/09/2011 796.2 Elevated Blood Pressure Reading Without Diagnosis Of Hypertension 06/09/2011 SALLY BLINDSTITCH LAPEL PADDER, VALERIE S 796.2 Elevated Blood Pressure Reading Without Diagnosis Of Hypertension 06/09/2011 YATES DO KARO K 796.2 Elevated Blood Pressure Reading Without Diagnosis Of Hypertension 06/09/2011 SALLY BLINDSTITCH LAPEL PADDER, VALERIE S 796.2 Elevated Blood Pressure Reading Without Diagnosis Of Hypertension 06/09/2011 SALLY BLINDSTITCH LAPEL PADDER, VALERIE S 796.2 Elevated Blood Pressure Reading [...] Reading Without Diagnosis Of Hypertension 06/09/2011 SALLY BLINDSTITCH LAPEL PADDER, VALERIE S 796.2 Elevated Blood Pressure Reading Without Diagnosis Of Hypertension 06/09/2011 SALLY BLINDSTITCH LAPEL PADDER, VALERIE S 796.2 Elevated Blood Pressure Reading Without Diagnosis Of Hypertension 06/09/2011 YATES DO KARO K 796.2 Elevated Blood Pressure Reading Without Diagnosis Of Hypertension 06/09/2011 SALLY BLINDSTITCH LAPEL PADDER, VALERIE S 796.2 Elevated Blood Pressure Reading Without Diagnosis Of Hypertension 06/09/2011 MILAN RAMIREZ KARO K 796.2 Elevated Blood Pressure Reading Without Diagnosis Of Hypertension 06/09/2011 SALLY BLINDSTITCH LAPEL PADDER, VALERIE S 796.2 Elevated Blood Pressure Reading Without Diagnosis Of Hypertension 06/09/2011 SALLY BLINDSTITCH LAPEL PADDER, VALERIE S 796.2 Elevated Blood Pressure Reading Without Diagnosis Of Hypertension 06/09/2011 SALLY BLINDSTITCH LAPEL PADDER, VALERIE S 796.2 Elevated Blood Pressure Reading Without Diagnosis Of Hypertension 06/09/2011 SALLY BLINDSTITCH LAPEL PADDER, VALERIE S 796.2 Elevated Blood Pressure Reading Without Diagnosis Of Hypertension 06/09/2011 SALLY BLINDSTITCH LAPEL PADDER, VALERIE S 796.2 Elevated Blood Pressure Reading [...] 07/12/2011 338.4 CHRONIC PAIN SYNDROME 07/12/2011 SALLY BLINDSTITCH LAPEL PADDER, VALERIE S 338.4 CHRONIC PAIN SYNDROME 07/12/2011 YATES DO, KARO K 338.4 CHRONIC PAIN SYNDROME 07/12/2011 SALLY BLINDSTITCH LAPEL PADDER, VALERIE S 338.4 CHRONIC PAIN SYNDROME 07/12/2011 SALLY BLINDSTITCH LAPEL PADDER, VALERIE S 338.4 CHRONIC PAIN SYNDROME 07/12/2011 YATES DO, KARO K 338.4 CHRONIC PAIN SYNDROME 07/12/2011 338.4 CHRONIC PAIN SYNDROME 07/12/2011 338.4 CHRONIC PAIN SYNDROME 07/12/2011 338.4 CHRONIC PAIN SYNDROME 07/12/2011 MARY JO ABRAMS, MICHELLE 338.4 CHRONIC PAIN SYNDROME 07/12/2011 SALLY BLINDSTITCH LAPEL PADDER, VALERIE S 338.4 CHRONIC PAIN SYNDROME 07/12/2011 SALLY BLINDSTITCH LAPEL PADDER, VALERIE S 338.4 CHRONIC PAIN SYNDROME 07/12/2011 YATES DO, KARO K 338.4 CHRONIC PAIN SYNDROME 07/12/2011 SALLY BLINDSTITCH LAPEL PADDER, VALERIE S 338.4 CHRONIC PAIN SYNDROME 07/12/2011 YATES DO, KARO K 338.4 CHRONIC PAIN SYNDROME 07/12/2011 SALLY BLINDSTITCH LAPEL PADDER, VALERIE S 338.4 CHRONIC PAIN SYNDROME 07/12/2011 SALLY BLINDSTITCH LAPEL PADDER, VALERIE S 338.4 CHRONIC PAIN SYNDROME 07/12/2011 SALLY BLINDSTITCH LAPEL PADDER, VALERIE S 338.4 CHRONIC PAIN SYNDROME 07/12/2011 SALLY BLINDSTITCH LAPEL PADDER, VALERIE S 338.4 CHRONIC PAIN SYNDROME 07/12/2011 SALLY BLINDSTITCH LAPEL PADDER, VALERIE S 338.4 CHRONIC PAIN SYNDROME 07/12/2011 SALLY BLINDSTITCH LAPEL PADDER, VALERIE S 338.4 CHRONIC PAIN SYNDROME 07/12/2011 SALLY BLINDSTITCH LAPEL PADDER, VALERIE S 338.4 CHRONIC PAIN SYNDROME 07/12/2011 YTAES DO, KARO K 338.4 CHRONIC PAIN SYNDROME 07/12/2011 SALLY BLINDSTITCH LAPEL PADDER, VALERIE S 338.4 CHRONIC PAIN SYNDROME 07/12/2011 YATES DO, KARO K 338.4 CHRONIC PAIN SYNDROME 07/12/2011 SALLY BLINDSTITCH LAPEL PADDER, VALERIE S 338.4 CHRONIC PAIN SYNDROME 07/12/2011 SALLY BLINDSTITCH LAPEL PADDER, VALERIE S 338.4 CHRONIC PAIN SYNDROME 07/12/2011 SALLY BLINDSTITCH LAPEL PADDER, VALERIE S 338.4 CHRONIC PAIN SYNDROME 07/12/2011 [...] RAMIREZ KARO K 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 09/23/2011 SALLY BLINDSTITCH LAPEL PADDER, VALERIE S 735.0 HALLUX VALGUS (ACQUIRED) 09/23/2011 SALLY BLINDSTITCH LAPEL PADDER, VALERIE S 735.4 HAMMER TOE (ACQUIRED) 09/23/2011 SALLY BLINDSTITCH LAPEL PADDER, VALERIE S 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 09/23/2011 SALLY BLINDSTITCH LAPEL PADDER, VALERIE S 735.0 HALLUX VALGUS (ACQUIRED) 09/23/2011 [...] S 735.0 HALLUX VALGUS (ACQUIRED) 09/23/2011 SALLY BLINDSTITCH LAPEL PADDER, VALERIE S 735.4 HAMMER TOE (ACQUIRED) 09/23/2011 SALLY BLINDSTITCH LAPEL PADDER, VALERIE S 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 09/23/2011 SALLY BLINDSTITCH LAPEL PADDER, VALERIE S 735.0 HALLUX VALGUS (ACQUIRED) 09/23/2011 SALLY BLINDSTITCH LAPEL PADDER, VALERIE S 735.4 HAMMER TOE (ACQUIRED) 09/23/2011 SALLY BLINDSTITCH LAPEL PADDER, VALERIE S 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 09/23/2011 YATES DO, KARO K 735.0 HALLUX VALGUS (ACQUIRED) 09/23/2011 YATES DO, KARO K 735.4 HAMMER TOE (ACQUIRED) 09/23/2011 YATES DO, KARO K 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 09/23/2011 SALLY BLINDSTITCH LAPEL PADDER, VALERIE S 735.0 HALLUX VALGUS (ACQUIRED) 09/23/2011 SALLY BLINDSTITCH LAPEL PADDER, VALERIE S 735.4 HAMMER TOE (ACQUIRED) 09/23/2011 SALLY BLINDSTITCH LAPEL PADDER, VALERIE S 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 09/23/2011 YATES DO, KARO K 735.0 HALLUX VALGUS (ACQUIRED) 09/23/2011 YAETS DO, KARO K 735.4 HAMMER TOE (ACQUIRED) 09/23/2011 YATES DO, KARO K 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 09/23/2011 SALLY BLINDSTITCH LAPEL PADDER, VALERIE S 735.0 HALLUX VALGUS (ACQUIRED) 09/23/2011 SALLY BLINDSTITCH LAPEL PADDER, VALERIE S 735.4 HAMMER TOE (ACQUIRED) 09/23/2011 SALLY BLINDSTITCH LAPEL PADDER, VALERIE S 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 09/23/2011 SALLY BLINDSTITCH LAPEL PADDER, VALERIE S 735.0 HALLUX VALGUS (ACQUIRED) 09/23/2011 SALLY BLINDSTITCH LAPEL PADDER, VALERIE S 735.4 HAMMER TOE (ACQUIRED) 09/23/2011 SALLY BLINDSTITCH LAPEL PADDER, VALERIE S 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 09/23/2011 SALLY BLINDSTITCH LAPEL PADDER, VALERIE S 735.0 HALLUX VALGUS (ACQUIRED) 09/23/2011 SALLY BLINDSTITCH LAPEL PADDER, VALERIE S 735.4 HAMMER TOE (ACQUIRED) 09/23/2011 SALLY BLINDSTITCH LAPEL PADDER, VALERIE S 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 09/23/2011 SALLY BLINDSTITCH LAPEL PADDER, VALERIE S 735.0 HALLUX VALGUS (ACQUIRED) 09/23/2011 SALLY BLINDSTITCH LAPEL PADDER, VALERIE S 735.4 HAMMER TOE (ACQUIRED) 09/23/2011 SALLY BLINDSTITCH LAPEL PADDER, VALERIE S 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 09/23/2011 SALLY BLINDSTITCH LAPEL PADDER, VALERIE S 735.0 HALLUX VALGUS (ACQUIRED) 09/23/2011 SALLY BLINDSTITCH LAPEL PADDER, VALERIE S 735.4 HAMMER TOE (ACQUIRED) 09/23/2011 SALLY BLINDSTITCH LAPEL PADDER, VALERIE S 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 09/23/2011 SALLY BLINDSTITCH LAPEL PADDER, VALERIE S 735.0 HALLUX VALGUS (ACQUIRED) 09/23/2011 SALLY BLINDSTITCH LAPEL PADDER, VALERIE S 735.4 HAMMER TOE (ACQUIRED) 09/23/2011 SALLY BLINDSTITCH LAPEL PADDER, VALERIE S 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 09/23/2011 SALLY BLINDSTITCH LAPEL PADDER, VALERIE S 735.0 HALLUX VALGUS (ACQUIRED) 09/23/2011 SALLY BLINDSTITCH LAPEL PADDER, VALERIE S 735.4 HAMMER TOE (ACQUIRED) 09/23/2011 SALLY BLINDSTITCH LAPEL PADDER, VALERIE S 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 09/23/2011 YATES DO, KARO K 735.0 HALLUX VALGUS (ACQUIRED) 09/23/2011 YATES DO, KARO K 735.4 HAMMER TOE (ACQUIRED) 09/23/2011 YATES DO, KARO K 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 09/23/2011 SALLY BLINDSTITCH LAPEL PADDER, VALERIE S 735.0 HALLUX VALGUS (ACQUIRED) 09/23/2011 SALLY BLINDSTITCH LAPEL PADDER, VALERIE S 735.4 HAMMER TOE (ACQUIRED) 09/23/2011 SALLY BLINDSTITCH LAPEL PADDER, VALERIE S 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 09/23/2011 YATES DO, KARO K 735.0 HALLUX VALGUS (ACQUIRED) 09/23/2011 YATES DO, KARO K 735.4 HAMMER TOE (ACQUIRED) 09/23/2011 YATES DO, KARO K 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 09/23/2011 SALLY BLINDSTITCH LAPEL PADDER, VALERIE S 735.0 HALLUX VALGUS (ACQUIRED) 09/23/2011 SALLY BLINDSTITCH LAPEL PADDER, VALERIE S 735.4 HAMMER TOE (ACQUIRED) 09/23/2011 SALLY BLINDSTITCH LAPEL PADDER, VALERIE S 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 09/23/2011 SALLY BLINDSTITCH LAPEL PADDER, VALERIE S 735.0 HALLUX VALGUS (ACQUIRED) 09/23/2011 SALLY BLINDSTITCH LAPEL PADDER, VALERIE S 735.4 HAMMER TOE (ACQUIRED) 09/23/2011 SALLY BLINDSTITCH LAPEL PADDER, VALERIE S 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 09/23/2011 SALLY BLINDSTITCH LAPEL PADDER, VALERIE S 735.0 HALLUX VALGUS (ACQUIRED) 09/23/2011 SALLY BLINDSTITCH LAPEL PADDER, VALERIE S 735.4 HAMMER TOE (ACQUIRED) 09/23/2011 SALLY BLINDSTITCH LAPEL PADDER, VALERIE S 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 09/23/2011 YATES DO, KARO K 735.0 HALLUX VALGUS (ACQUIRED) 09/23/2011 YATES DO, KARO K 735.4 HAMMER TOE (ACQUIRED) 09/23/2011 YATES DO, KARO K 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 09/23/2011 SALLY BLINDSTITCH LAPEL PADDER, VALERIE S 735.0 HALLUX VALGUS (ACQUIRED) 09/23/2011 SALLY BLINDSTITCH LAPEL PADDER, VALERIE S 735.4 HAMMER TOE (ACQUIRED) 09/23/2011 SALLY BLINDSTITCH LAPEL PADDER, VALERIE S 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 11/18/2011 YATES DO, KARO K 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 11/18/2011 YATES DO, KARO K 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 11/18/2011 ZORAIDA ESPAÑA APRN R 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 11/18/2011 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 11/18/2011 SALLY BLINDSTITCH LAPEL PADDER, VALERIE S 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 11/18/2011 YATES DO, KARO K 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 11/18/2011 SALLY BLINDSTITCH LAPEL PADDER, VALERIE S 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 11/18/2011 SALLY BLINDSTITCH LAPEL PADDER, VALERIE S 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 11/18/2011 YATES DO, KARO K 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 11/18/2011 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 11/18/2011 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 11/18/2011 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 11/18/2011 MICHELLE CAMARGO MD 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 11/18/2011 SALLY BLINDSTITCH LAPEL PADDER, VALERIE S 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 11/18/2011 SALLY BLINDSTITCH LAPEL PADDER, VALERIE S 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 11/18/2011 YATES DO, KARO K 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 11/18/2011 SALLY BLINDSTITCH LAPEL PADDER, VALERIE S 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 11/18/2011 YATES DO, KARO K 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 11/18/2011 SALLY BLINDSTITCH LAPEL PADDER, VALERIE S 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 11/18/2011 SALLY BLINDSTITCH LAPEL PADDER, VALERIE S 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 11/18/2011 SALLY BLINDSTITCH LAPEL PADDER, VALERIE S 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 11/18/2011 SALLY BLINDSTITCH LAPEL PADDER, VALERIE S 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 11/18/2011 SALLY BLINDSTITCH LAPEL PADDER, VALERIE S 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 11/18/2011 SALLY BLINDSTITCH LAPEL PADDER, VALERIE S 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 11/18/2011 SALLY BLINDSTITCH LAPEL PADDER, VALERIE S 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 11/18/2011 YATES DO, KARO K 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 11/18/2011 SALLY BLINDSTITCH LAPEL PADDER, VALERIE S 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 11/18/2011 YATES DO, KARO K 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 11/18/2011 SALLY BLINDSTITCH LAPEL PADDER, VALERIE S 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 11/18/2011 SALLY BLINDSTITCH LAPEL PADDER, VALERIE S 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 11/18/2011 SALLY BLINDSTITCH LAPEL PADDER, VALERIE S 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 11/18/2011 YATES DO, KARO K 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 11/18/2011 SALLY BLINDSTITCH LAPEL PADDER, VALERIE S 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 12/05/2011 [...] S 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 01/20/2012 SALLY BLINDSTITCH LAPEL PADDER, VALERIE S 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 01/20/2012 YATES DO, KARO K 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 01/20/2012 SALLY BLINDSTITCH LAPEL PADDER, VALERIE S 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 01/20/2012 YATES DO, KARO K 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 01/20/2012 SALLY RIVERA VALERIE S 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 01/20/2012 SALLY BLINDSTITCH LAPEL PADDER, VALERIE S 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 01/20/2012 SALLY BLINDSTITCH LAPEL PADDER, VALERIE S 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 01/20/2012 SLALY BLINDSTITCH LAPEL PADDER, VALERIE S 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 01/20/2012 SALLY BLINDSTITCH LAPEL PADDER, VALERIE S 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 01/20/2012 SALLY BLINDSTITCH LAPEL PADDER, VALERIE S 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 01/20/2012 SALLY BLINDSTITCH LAPEL PADDER, VALERIE S 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 01/20/2012 YATES DO, KARO K 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 01/20/2012 SALLY BLINDSTITCH LAPEL PADDER, VALERIE S 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 01/20/2012 YATES DO, KARO K 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 01/20/2012 SALLY BLINDSTITCH LAPEL PADDER, VALERIE S 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 01/20/2012 SALLY BLINDSTITCH LAPEL PADDER, VALERIE S 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 01/20/2012 SALLY BLINDSTITCH LAPEL PADDER, VALERIE S 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 01/20/2012 YATES DO, KARO K 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 01/20/2012 SALLY BLINDSTITCH LAPEL PADDER, VALERIE S 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 02/09/2012 [...] AT A HEALTH CARE FACILITY 02/14/2012 SALLY BLINDSTITCH LAPEL PADDERADRIAN TalleyA S V70.0 ROUTINE GENERAL MEDICAL EXAMINATION AT A HEALTH CARE FACILITY 02/14/2012 SALLY BLINDSTITCH LAPEL PADDERSERINA TalleyNDA S V70.0 ROUTINE GENERAL MEDICAL EXAMINATION AT A HEALTH CARE FACILITY 02/14/2012 SERINA ZAVALA APRNNDA S V70.0 ROUTINE GENERAL MEDICAL EXAMINATION AT A HEALTH CARE FACILITY 02/14/2012 SERINA ZAVALA APRNNDA S V70.0 ROUTINE GENERAL MEDICAL EXAMINATION AT A HEALTH CARE FACILITY 02/14/2012 SALLY BLINDSTITCH LAPEL PADDERSERINA TalleyNDA S V70.0 ROUTINE GENERAL MEDICAL EXAMINATION [...] K 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 03/16/2012 ESPAÑA BLINDSTITCH LAPEL PADDER, ZORAIDA R 719.07 EDEMA FOOT 03/16/2012 ESPAÑA BLINDSTITCH LAPEL PADDER, ZORAIDA R 726.90 CAPSULITIS 03/16/2012 ESPAÑA BLINDSTITCH LAPEL PADDER, ZORAIDA R 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 03/16/2012 719.07 EDEMA FOOT 03/16/2012 726.90 CAPSULITIS 03/16/2012 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 03/16/2012 SALLY BLINDSTITCH LAPEL PADDER, VALERIE S 719.07 EDEMA FOOT 03/16/2012 SALLY BLINDSTITCH LAPEL PADDER, VALERIE S 726.90 CAPSULITIS 03/16/2012 SALLY BLINDSTITCH LAPEL PADDER, VALERIE S 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 03/16/2012 YATES DO, KARO K 719.07 EDEMA FOOT 03/16/2012 YATES DO, KARO K 726.90 CAPSULITIS 03/16/2012 YATES DO, KARO K 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 03/16/2012 SALLY BLINDSTITCH LAPEL PADDER, VALERIE S 719.07 EDEMA FOOT 03/16/2012 SALLY BLINDSTITCH LAPEL PADDER, VALERIE S 726.90 CAPSULITIS 03/16/2012 SALLY BLINDSTITCH LAPEL PADDER, VALERIE S 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 03/16/2012 SALLY BLINDSTITCH LAPEL PADDER, VALERIE S 719.07 EDEMA FOOT 03/16/2012 SALLY BLINDSTITCH LAPEL PADDER, VALERIE S 726.90 CAPSULITIS 03/16/2012 SALLY BLINDSTITCH LAPEL PADDER, VALERIE S 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 03/16/2012 [...] RIVERA VALERIE S 726.90 CAPSULITIS 03/16/2012 SALLY BLINDSTITCH LAPEL PADDER, VALERIE S 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 03/16/2012 SALLY BLINDSTITCH LAPEL PADDER, VALERIE S 719.07 EDEMA FOOT 03/16/2012 SALLY RIVERA, VALERIE S 726.90 CAPSULITIS 03/16/2012 SALLY BLINDSTITCH LAPEL PADDER, VALERIE S 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 03/16/2012 [...] K 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 03/16/2012 SALLY BLINDSTITCH LAPEL PADDER, VALERIE S 719.07 EDEMA FOOT 03/16/2012 SALLY BLINDSTITCH LAPEL PADDER, VALERIE S 726.90 CAPSULITIS 03/16/2012 SALLY BLINDSTITCH LAPEL PADDER, VALERIE S 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 03/16/2012 SALLY BLINDSTITCH LAPEL PADDER, VALERIE S 719.07 EDEMA FOOT 03/16/2012 SALLY BLINDSTITCH LAPEL PADDER, VALERIE S 726.90 CAPSULITIS 03/16/2012 SALLY BLINDSTITCH LAPEL PADDER, VALERIE S 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 03/16/2012 SALLY BLINDSTITCH LAPEL PADDER, VALERIE S 719.07 EDEMA FOOT 03/16/2012 SALLY BLINDSTITCH LAPEL PADDER, VALERIE S 726.90 CAPSULITIS 03/16/2012 SALLY BLINDSTITCH LAPEL PADDER, VALERIE S 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 03/16/2012 SALLY BLINDSTITCH LAPEL PADDER, VALERIE S 719.07 EDEMA FOOT 03/16/2012 SALLY BLINDSTITCH LAPEL PADDER, VALERIE S 726.90 CAPSULITIS 03/16/2012 SALLY BLINDSTITCH LAPEL PADDER, VALERIE S 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 03/16/2012 SALLY BLINDSTITCH LAPEL PADDER, VALERIE S 719.07 EDEMA FOOT 03/16/2012 SALLY BLINDSTITCH LAPEL PADDER, VALERIE S 726.90 CAPSULITIS 03/16/2012 SALLY BLINDSTITCH LAPEL PADDER, VALERIE S 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 03/16/2012 SALLY BLINDSTITCH LAPEL PADDER, VALERIE S 719.07 EDEMA FOOT 03/16/2012 SALLY BLINDSTITCH LAPEL PADDER, VALERIE S 726.90 CAPSULITIS 03/16/2012 SALLY BLINDSTITCH LAPEL PADDER, VALERIE S 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 03/16/2012 SALLY BLINDSTITCH LAPEL PADDER, VALERIE S 719.07 EDEMA FOOT 03/16/2012 SALLY BLINDSTITCH LAPEL PADDER, VALERIE S 726.90 CAPSULITIS 03/16/2012 SALLY BLINDSTITCH LAPEL PADDER, VALERIE S 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 03/16/2012 YATES DO, KARO K 719.07 EDEMA FOOT 03/16/2012 YATES DO, KARO K 726.90 CAPSULITIS 03/16/2012 YATES DO, KARO K 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 03/16/2012 SALLY BLINDSTITCH LAPEL PADDER, VALERIE S 719.07 EDEMA FOOT 03/16/2012 SALLY BLINDSTITCH LAPEL PADDER, VALERIE S 726.90 CAPSULITIS 03/16/2012 SALLY BLINDSTITCH LAPEL PADDER, VALERIE S 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 03/16/2012 YATES DO, KARO K 719.07 EDEMA FOOT 03/16/2012 YATES DO, KARO K 726.90 CAPSULITIS 03/16/2012 YATES DO, KARO K 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 03/16/2012 SALLY BLINDSTITCH LAPEL PADDER, VALERIE S 719.07 EDEMA FOOT 03/16/2012 SALLY BLINDSTITCH LAPEL PADDER, VALERIE S 726.90 CAPSULITIS 03/16/2012 SALLY BLINDSTITCH LAPEL PADDER, VALERIE S 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 03/16/2012 SALLY BLINDSTITCH LAP[employer] PADDER, VALERIE S 719.07 EDEMA FOOT 03/16/2012 SALLY BLINDSTITCH LAPEL PADDER, VALERIE S 726.90 CAPSULITIS 03/16/2012 SALLY BLINDSTITCH LAP[employer] PADDER, VALERIE S 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 03/16/2012 SALLY BLINDSTITCH LAP[employer] PADDER, VALERIE S 719.07 EDEMA FOOT 03/16/2012 SALLY BLINDSTITCH LAP[employer] PADDER, VALERIE S 726.90 CAPSULITIS 03/16/2012 SALLY BLINDSTITCH LAP[employer] PADDER, VALERIE S 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 03/16/2012 YATES DO, KARO K 719.07 EDEMA FOOT 03/16/2012 YATES DO, KARO K 726.90 CAPSULITIS 03/16/2012 YATES DO, KARO K 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 03/16/2012 SALLY BLINDSTITCH LAPEL PADDER, VALERIE S 719.07 EDEMA FOOT 03/16/2012 SALLY BLINDSTITCH LAPEL PADDER, VALERIE S 726.90 CAPSULITIS 03/16/2012 SALLY BLINDSTITCH LAPEL PADDER, VALERIE S 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 03/30/2012 YATES DO KARO K V45.89 POSTSURGICAL STATUS 03/30/2012 YATES DO KARO K V45.89 POSTSURGICAL STATUS 03/30/2012 ESPAÑA BLINDSTITCH LAPEL PADDER, ZORAIDA R V45.89 POSTSURGICAL STATUS 03/30/2012 V45.89 POSTSURGICAL STATUS 03/30/2012 SALLY BLINDSTITCH LAPEL PADDER, VALERIE S V45.89 POSTSURGICAL STATUS 03/30/2012 YATES DO KARO K V45.89 POSTSURGICAL STATUS 03/30/2012 SALLY BLINDSTITCH LAPEL PADDER, VALERIE S V45.89 POSTSURGICAL STATUS 03/30/2012 SALLY BLINDSTITCH LAPEL PADDER, VALERIE S V45.89 POSTSURGICAL STATUS 03/30/2012 YATES DO KARO K V45.89 POSTSURGICAL STATUS 03/30/2012 V45.89 POSTSURGICAL STATUS 03/30/2012 V45.89 POSTSURGICAL STATUS 03/30/2012 V45.89 POSTSURGICAL STATUS 03/30/2012 MICHELLE CAMARGO MD V45.89 POSTSURGICAL STATUS 03/30/2012 SALLY BLINDSTITCH LAPEL PADDER, VALERIE S V45.89 POSTSURGICAL STATUS 03/30/2012 SALLY BLINDSTITCH LAPEL PADDER, VALERIE S V45.89 POSTSURGICAL STATUS 03/30/2012 YATES DO KARO K V45.89 POSTSURGICAL STATUS 03/30/2012 SALLY BLINDSTITCH LAPEL PADDER, VALERIE S V45.89 POSTSURGICAL STATUS 03/30/2012 YATES DO KARO K V45.89 POSTSURGICAL STATUS 03/30/2012 SALLY BLINDSTITCH LAPEL PADDER, VALERIE S V45.89 POSTSURGICAL STATUS 03/30/2012 SALLY BLINDSTITCH LAPEL PADDER, VALERIE S V45.89 POSTSURGICAL STATUS 03/30/2012 SALLY BLINDSTITCH LAPEL PADDER, VALERIE S V45.89 POSTSURGICAL STATUS 03/30/2012 SALLY BLINDSTITCH LAPEL PADDER, VALERIE S V45.89 POSTSURGICAL STATUS 03/30/2012 SALLY BLINDSTITCH LAPEL PADDER, VALERIE S V45.89 POSTSURGICAL STATUS 03/30/2012 SALLY BLINDSTITCH LAPEL PADDER, VALERIE S V45.89 POSTSURGICAL STATUS 03/30/2012 SALLY BLINDSTITCH LAPEL PADDER, VALERIE S V45.89 POSTSURGICAL STATUS 03/30/2012 YATES DO KARO K V45.89 POSTSURGICAL STATUS 03/30/2012 SALLY BLINDSTITCH LAPEL PADDER, VALERIE S V45.89 POSTSURGICAL STATUS 03/30/2012 YATES DO, KARO K V45.89 POSTSURGICAL STATUS 03/30/2012 SALLY BLINDSTITCH LAPEL PADDER, VALERIE S V45.89 POSTSURGICAL STATUS 03/30/2012 SALLY BLINDSTITCH LAPEL PADDER, VALERIE S V45.89 POSTSURGICAL STATUS 03/30/2012 SALLY BLINDSTITCH LAPEL PADDER, VALERIE S V45.89 POSTSURGICAL STATUS 03/30/2012 YATES DO, KARO K V45.89 POSTSURGICAL STATUS 03/30/2012 SALLY BLINDSTITCH LAPEL PADDER, VALERIE S V45.89 POSTSURGICAL STATUS 05/29/2012 TACO BLINDSTITCH LAPEL PADDER, ZORAIDA R 786.2 cough 05/29/2012 786.2 cough 05/29/2012 SALLY BLINDSTITCH LAPEL PADDER, VALERIE S 786.2 cough 05/29/2012 YATES DO, KARO K 786.2 cough 05/29/2012 SALLY BLINDSTITCH LAPEL PADDER, VALERIE S 786.2 cough 05/29/2012 SALLY BLINDSTITCH LAPEL PADDER, VALERIE S 786.2 cough 05/29/2012 YATES DO KARO K 786.2 cough 05/29/2012 786.2 cough 05/29/2012 786.2 COUGH 05/29/2012 786.2 COUGH 05/29/2012 MICHELLE CAMARGO MD 786.2 COUGH 05/29/2012 SALLY BLINDSTITCH LAPEL PADDER, VALERIE S 786.2 COUGH 05/29/2012 SALLY BLINDSTITCH LAPEL PADDER, VALERIE S 786.2 COUGH 05/29/2012 YATES DO, KARO K 786.2 COUGH 05/29/2012 SALLY BLINDSTITCH LAPEL PADDER, VALERIE S 786.2 COUGH 05/29/2012 YATES DO, KARO K 786.2 COUGH 05/29/2012 SALLY BLINDSTITCH LAPEL PADDER, VALERIE S 786.2 COUGH 05/29/2012 SALLY BLINDSTITCH LAPEL PADDER, VALERIE S 786.2 COUGH 05/29/2012 SALLY BLINDSTITCH LAPEL PADDER, VALERIE S 786.2 COUGH 05/29/2012 SALLY BLINDSTITCH LAPEL PADDER, VALERIE S 786.2 COUGH 05/29/2012 SALLY BLINDSTITCH LAPEL PADDER, VALERIE S 786.2 COUGH 05/29/2012 SALLY BLINDSTITCH LAPEL PADDER, VALERIE S 786.2 COUGH 05/29/2012 SALLY BLINDSTITCH LAPEL PADDER, VALERIE S 786.2 COUGH 05/29/2012 YATES DO, KARO K 786.2 COUGH 05/29/2012 SALLY BLINDSTITCH LAPEL PADDER, VALERIE S 786.2 COUGH 05/29/2012 YATES DO, KARO K 786.2 COUGH 05/29/2012 SALLY BLINDSTITCH LAPEL PADDER, VALERIE S 786.2 COUGH 05/29/2012 SALLY BLINDSTITCH LAPEL PADDER, VALERIE S 786.2 COUGH 05/29/2012 SALLY BLINDSTITCH LAPEL PADDER, VALERIE S 786.2 COUGH 05/29/2012 YATES DO, KARO K 786.2 COUGH 05/29/2012 SALLY BLINDSTITCH LAPEL PADDER, VALERIE S 786.2 COUGH 06/05/2012 461.9 SINUSITIS ACUTE 06/05/2012 SALLY BLINDSTITCH LAPEL PADDER, VALERIE S 461.9 SINUSITIS ACUTE 06/05/2012 YATES DO, KARO K 461.9 SINUSITIS ACUTE 06/05/2012 SALLY BLINDSTITCH LAPEL PADDER, VALERIE S 461.9 SINUSITIS ACUTE 06/05/2012 SALLY BLINDSTITCH LAPEL PADDER, VALERIE S 461.9 SINUSITIS ACUTE 06/05/2012 YATES DO KARO K 461.9 SINUSITIS ACUTE 06/05/2012 461.9 SINUSITIS ACUTE 06/05/2012 461.9 SINUSITIS ACUTE 06/05/2012 461.9 SINUSITIS ACUTE 06/05/2012 MICHELLE CAMARGO MD 461.9 SINUSITIS ACUTE 06/05/2012 SALLY BLINDSTITCH LAPEL PADDER, VALERIE S 461.9 SINUSITIS ACUTE 06/05/2012 SALLY BLINDSTITCH LAPEL PADDER, VALERIE S 461.9 SINUSITIS ACUTE 06/05/2012 YATES DO KARO K 461.9 SINUSITIS ACUTE 06/05/2012 SALLY BLINDSTITCH LAPEL PADDER, VALERIE S 461.9 SINUSITIS ACUTE 06/05/2012 YATES DO, KARO K 461.9 SINUSITIS ACUTE 06/05/2012 SALLY BLINDSTITCH LAPEL PADDER, VALERIE S 461.9 SINUSITIS ACUTE 06/05/2012 SALLY BLINDSTITCH LAPEL PADDER, VALERIE S 461.9 SINUSITIS ACUTE 06/05/2012 SALLY BLINDSTITCH LAPEL PADDER, VALERIE S 461.9 SINUSITIS ACUTE 06/05/2012 SALLY BLINDSTITCH LAPEL PADDER, VALERIE S 461.9 SINUSITIS ACUTE 06/05/2012 SALLY BLINDSTITCH LAPEL PADDER, VALERIE S 461.9 SINUSITIS ACUTE 06/05/2012 SALLY BLINDSTITCH LAPEL PADDER, VALERIE S 461.9 SINUSITIS ACUTE 06/05/2012 SALLY BLINDSTITCH LAPEL PADDER, VALERIE S 461.9 SINUSITIS ACUTE 06/05/2012 HALEY YATES DOA K 461.9 SINUSITIS ACUTE 06/05/2012 SALLY BLINDSTITCH LAPEL PADDER, VALERIE S 461.9 SINUSITIS ACUTE 06/05/2012 HALEY YATES DOA K 461.9 SINUSITIS ACUTE 06/05/2012 SALLY BLINDSTITCH LAPEL PADDER, VALERIE S 461.9 SINUSITIS ACUTE 06/05/2012 SALLY BLINDSTITCH LAPEL PADDER, VALERIE S 461.9 SINUSITIS ACUTE 06/05/2012 SALLY BLINDSTITCH LAPEL PADDER, VALERIE S 461.9 SINUSITIS ACUTE 06/05/2012 HALEY YATES DOA K 461.9 SINUSITIS ACUTE 06/05/2012 SALLY BLINDSTITCH LAPEL PADDER, VALERIE S 461.9 SINUSITIS ACUTE 07/04/2012 SALLY BLINDSTITCH LAPEL PADDER, VALERIE S 535.50 UNSPECIFIED GASTRITIS AND GASTRODUODENITIS (WITHOUT HEMORRHAGE) 07/04/2012 SALLY BLINDSTITCH LAPEL PADDER, VALERIE S 535.50 UNSPECIFIED GASTRITIS AND GASTRODUODENITIS (WITHOUT HEMORRHAGE) 07/04/2012 KARO YATES DO 535.50 UNSPECIFIED GASTRITIS AND GASTRODUODENITIS (WITHOUT HEMORRHAGE) 07/04/2012 535.50 UNSPECIFIED GASTRITIS AND GASTRODUODENITIS (WITHOUT HEMORRHAGE) 07/04/2012 535.50 UNSPECIFIED GASTRITIS AND GASTRODUODENITIS (WITHOUT HEMORRHAGE) 07/04/2012 535.50 UNSPECIFIED GASTRITIS AND GASTRODUODENITIS (WITHOUT HEMORRHAGE) 07/04/2012 MICHELLE CAMARGO MD 535.50 UNSPECIFIED GASTRITIS AND GASTRODUODENITIS (WITHOUT HEMORRHAGE) 07/04/2012 SALLY BLINDSTITCH LAPEL PADDER, VALERIE S 535.50 UNSPECIFIED GASTRITIS AND GASTRODUODENITIS (WITHOUT HEMORRHAGE) 07/04/2012 SALLY BLINDSTITCH LAPEL PADDER, VALERIE S 535.50 UNSPECIFIED GASTRITIS AND GASTRODUODENITIS (WITHOUT HEMORRHAGE) 07/04/2012 KARO YATES DO 535.50 UNSPECIFIED GASTRITIS AND GASTRODUODENITIS (WITHOUT HEMORRHAGE) 07/04/2012 SALLY BLINDSTITCH LAPEL PADDER, VALERIE S 535.50 UNSPECIFIED GASTRITIS AND GASTRODUODENITIS (WITHOUT HEMORRHAGE) 07/04/2012 YATES DO KARO K 535.50 UNSPECIFIED GASTRITIS AND GASTRODUODENITIS (WITHOUT HEMORRHAGE) 07/04/2012 SALLY BLINDSTITCH LAPEL PADDER, VALERIE S 535.50 UNSPECIFIED GASTRITIS AND GASTRODUODENITIS (WITHOUT HEMORRHAGE) 07/04/2012 SALLY BLINDSTITCH LAPEL PADDER, VALERIE S 535.50 UNSPECIFIED GASTRITIS AND GASTRODUODENITIS (WITHOUT HEMORRHAGE) 07/04/2012 SALLY BLINDSTITCH LAPEL PADDER, VALERIE S 535.50 UNSPECIFIED GASTRITIS AND GASTRODUODENITIS (WITHOUT HEMORRHAGE) 07/04/2012 SALLY BLINDSTITCH LAPEL PADDER, VALERIE S 535.50 UNSPECIFIED GASTRITIS AND GASTRODUODENITIS (WITHOUT HEMORRHAGE) 07/04/2012 SALLY BLINDSTITCH LAPEL PADDER, VALERIE S 535.50 UNSPECIFIED GASTRITIS AND GASTRODUODENITIS (WITHOUT HEMORRHAGE) 07/04/2012 SALLY BLINDSTITCH LAPEL PADDER, VALERIE S 535.50 UNSPECIFIED GASTRITIS AND GASTRODUODENITIS (WITHOUT HEMORRHAGE) 07/04/2012 SALLY BLINDSTITCH LAPEL PADDER, VALERIE S 535.50 UNSPECIFIED GASTRITIS AND GASTRODUODENITIS (WITHOUT HEMORRHAGE) 07/04/2012 YATES DO KARO K 535.50 UNSPECIFIED GASTRITIS AND GASTRODUODENITIS (WITHOUT HEMORRHAGE) 07/04/2012 SALLY BLINDSTITCH LAPEL PADDER, VALERIE S 535.50 UNSPECIFIED GASTRITIS AND GASTRODUODENITIS (WITHOUT HEMORRHAGE) 07/04/2012 YATES DO KARO K 535.50 UNSPECIFIED GASTRITIS AND GASTRODUODENITIS (WITHOUT HEMORRHAGE) 07/04/2012 SALLY BLINDSTITCH LAPEL PADDER, VALERIE S 535.50 UNSPECIFIED GASTRITIS AND GASTRODUODENITIS (WITHOUT HEMORRHAGE) 07/04/2012 SALLY BLINDSTITCH LAPEL PADDER, VALERIE S 535.50 UNSPECIFIED GASTRITIS AND GASTRODUODENITIS (WITHOUT HEMORRHAGE) 07/04/2012 SALLY BLINDSTITCH LAPEL PADDER, VALERIE S 535.50 UNSPECIFIED GASTRITIS AND GASTRODUODENITIS (WITHOUT HEMORRHAGE) 07/04/2012 YATES DO KARO K 535.50 UNSPECIFIED GASTRITIS AND GASTRODUODENITIS (WITHOUT HEMORRHAGE) 07/04/2012 SALLY BLINDSTITCH LAPEL PADDER, VALERIE S 535.50 UNSPECIFIED GASTRITIS AND GASTRODUODENITIS (WITHOUT HEMORRHAGE) 07/30/2012 SALLY BLINDSTITCH LAPEL PADDER, VALERIE S 788.1 DYSURIA 07/30/2012 YATES DO, KARO K 788.1 DYSURIA 07/30/2012 788.1 DYSURIA 07/30/2012 788.1 DYSURIA 07/30/2012 788.1 DYSURIA 07/30/2012 MICHELLE CAMARGO MD 788.1 DYSURIA 07/30/2012 SALLY BLINDSTITCH LAPEL PADDER, VALERIE S 788.1 DYSURIA 07/30/2012 SALLY BLINDSTITCH LAPEL PADDER, VALERIE S 788.1 DYSURIA 07/30/2012 YATES DO, KARO K 788.1 DYSURIA 07/30/2012 SALLY BLINDSTITCH LAPEL PADDER, VALERIE S 788.1 DYSURIA 07/30/2012 YATES DO, KARO K 788.1 DYSURIA 07/30/2012 SALLY BLINDSTITCH LAPEL PADDER, VALERIE S 788.1 DYSURIA 07/30/2012 SALLY BLINDSTITCH LAPEL PADDER, VALERIE S 788.1 DYSURIA 07/30/2012 SALLY BLINDSTITCH LAPEL PADDER, VALERIE S 788.1 DYSURIA 07/30/2012 SALLY BLINDSTITCH LAPEL PADDER, VALERIE S 788.1 DYSURIA 07/30/2012 SALLY BLINDSTITCH LAPEL PADDER, VALERIE S 788.1 DYSURIA 07/30/2012 SALLY BLINDSTITCH LAPEL PADDER, VALERIE S 788.1 DYSURIA 07/30/2012 SALLY BLINDSTITCH LAPEL PADDER, VALERIE S 788.1 DYSURIA 07/30/2012 YATES DO, KARO K 788.1 DYSURIA 07/30/2012 SALLY BLINDSTITCH LAPEL PADDER, VALERIE S 788.1 DYSURIA 07/30/2012 YATES DO, KARO K 788.1 DYSURIA 07/30/2012 SALLY BLINDSTITCH LAPEL PADDER, VALERIE S 788.1 DYSURIA 07/30/2012 SALLY BLINDSTITCH LAPEL PADDER, VALERIE S 788.1 DYSURIA 07/30/2012 SALLY BLINDSTITCH LAPEL PADDER, VALERIE S 788.1 DYSURIA 07/30/2012 YATES DO, KARO K 788.1 DYSURIA 07/30/2012 SALLY BLINDSTITCH LAPEL PADDER, VALERIE S 788.1 DYSURIA 02/04/2013 MARY JO ABRAMS, MICHELLE 719.40 ARTHRAIGIA UNSPEC 02/04/2013 SALLY BLINDSTITCH LAPEL PADDER, VALERIE S 719.40 ARTHRAIGIA UNSPEC 02/04/2013 SALLY BLINDSTITCH LAPEL PADDER, VALERIE S 719.40 ARTHRAIGIA UNSPEC 02/04/2013 YATES DO, KARO K 719.40 ARTHRAIGIA UNSPEC 02/04/2013 SALLY BLINDSTITCH LAPEL PADDER, VALERIE S 719.40 ARTHRAIGIA UNSPEC 02/04/2013 YATES DO, KARO K 719.40 ARTHRAIGIA UNSPEC 02/04/2013 SALLY BLINDSTITCH LAPEL PADDER, VALERIE S 719.40 ARTHRAIGIA UNSPEC 02/04/2013 SALLY BLINDSTITCH LAPEL PADDER, VALERIE S 719.40 ARTHRAIGIA UNSPEC 02/04/2013 SALLY BLINDSTITCH LAPEL PADDER, VALERIE S 719.40 ARTHRAIGIA UNSPEC 02/04/2013 SALLY BLINDSTITCH LAPEL PADDER, VALERIE S 719.40 ARTHRAIGIA UNSPEC 02/04/2013 SALLY BLINDSTITCH LAPEL PADDER, VALERIE S 719.40 ARTHRAIGIA UNSPEC 02/04/2013 SALLY BLINDSTITCH LAPEL PADDER, VALERIE S 719.40 ARTHRAIGIA UNSPEC 02/04/2013 SALLY BLINDSTITCH LAPEL PADDER, VALERIE S 719.40 ARTHRAIGIA UNSPEC 02/04/2013 YATES DO, KARO K 719.40 ARTHRAIGIA UNSPEC 02/04/2013 SALLY BLINDSTITCH LAPEL PADDER, VALERIE S 719.40 ARTHRAIGIA UNSPEC 02/04/2013 YATES DO, KARO K 719.40 ARTHRAIGIA UNSPEC 02/04/2013 SALLY BLINDSTITCH LAPEL PADDER, VALERIE S 719.40 ARTHRAIGIA UNSPEC 02/04/2013 SALLY BLINDSTITCH LAPEL PADDER, VALERIE S 719.40 ARTHRAIGIA UNSPEC 02/04/2013 SALLY BLINDSTITCH LAPEL PADDER, VALERIE S 719.40 ARTHRAIGIA UNSPEC 02/04/2013 YATES DO, KARO K 719.40 ARTHRAIGIA UNSPEC 02/04/2013 SALLY BLINDSTITCH LAPEL PADDER, VALERIE S 719.40 ARTHRAIGIA UNSPEC 04/02/2013 SALLY BLINDSTITCH LAPEL PADDER, VALERIE S 786.52 CHEST WALL PAIN 04/02/2013 YATES DO, KARO K 786.52 CHEST WALL PAIN 04/02/2013 SALLY BLINDSTITCH LAPEL PADDER, VALERIE S 786.52 CHEST WALL PAIN 04/02/2013 YATES DO, KARO K 786.52 CHEST WALL PAIN 04/02/2013 SALLY BLINDSTITCH LAPEL PADDER, VALERIE S 786.52 CHEST WALL PAIN 04/02/2013 SALLY BLINDSTITCH LAPEL PADDER, VALERIE S 786.52 CHEST WALL PAIN 04/02/2013 SALLY BLINDSTITCH LAPEL PADDER, VALERIE S 786.52 CHEST WALL PAIN 04/02/2013 SALLY BLINDSTITCH LAPEL PADDER, VALERIE S 786.52 CHEST WALL PAIN 04/02/2013 SALLY BLINDSTITCH LAPEL PADDER, VALERIE S 786.52 CHEST WALL PAIN 04/02/2013 SALLY BLINDSTITCH LAPEL PADDER, VALERIE S 786.52 CHEST WALL PAIN 04/02/2013 SALLY BLINDSTITCH LAPEL PADDER, VALERIE S 786.52 CHEST WALL PAIN 04/02/2013 YATES DO KARO K 786.52 CHEST WALL PAIN 04/02/2013 SALLY BLINDSTITCH LAPEL PADDER, VALERIE S 786.52 CHEST WALL PAIN 04/02/2013 YATES DO, KARO K 786.52 CHEST WALL PAIN 04/02/2013 SALLY BLINDSTITCH LAPEL PADDER, VALERIE S 786.52 CHEST WALL PAIN 04/02/2013 SALLY BLINDSTITCH LAPEL PADDER, VALERIE S 786.52 CHEST WALL PAIN 04/02/2013 SALLY BLINDSTITCH LAPEL PADDER, VALERIE S 786.52 CHEST WALL PAIN 04/02/2013 YATES DO, KARO K 786.52 CHEST WALL PAIN 04/02/2013 SALLY BLINDSTITCH LAPEL PADDER, VALERIE S 786.52 CHEST WALL PAIN 04/06/2013 MILAN RAMIREZ KARO K 053.9 HERPES ZOSTER (SHINGLES) 04/06/2013 YATES DO, KARO K 382.00 ACUTE OTITIS MEDIA (LEFT) 04/06/2013 SALLY BLINDSTITCH LAPEL PADDER, VALERIE S 053.9 HERPES ZOSTER (SHINGLES) 04/06/2013 SALLY BLINDSTITCH LAPEL PADDER, VALERIE S 382.00 ACUTE OTITIS MEDIA (LEFT) 04/06/2013 YATES DO, KARO K 053.9 HERPES ZOSTER (SHINGLES) 04/06/2013 YATES DO, KARO K 382.00 ACUTE OTITIS MEDIA (LEFT) 04/06/2013 SALLY BLINDSTITCH LAPEL PADDER, VALERIE S 053.9 HERPES ZOSTER (SHINGLES) 04/06/2013 SALLY BLINDSTITCH LAPEL PADDER, VALERIE S 382.00 ACUTE OTITIS MEDIA (LEFT) 04/06/2013 SALLY BLINDSTITCH LAPEL PADDER, VALERIE S 053.9 HERPES ZOSTER (SHINGLES) 04/06/2013 SALLY BLINDSTITCH LAPEL PADDER, VALERIE S 382.00 ACUTE OTITIS MEDIA (LEFT) 04/06/2013 SALLY BLINDSTITCH LAPEL PADDER, VALERIE S 053.9 HERPES ZOSTER (SHINGLES) 04/06/2013 SALLY BLINDSTITCH LAPEL PADDER, VALERIE S 382.00 ACUTE OTITIS MEDIA (LEFT) 04/06/2013 SALLY BLINDSTITCH LAPEL PADDER, VALERIE S 053.9 HERPES ZOSTER (SHINGLES) 04/06/2013 SALLY BLINDSTITCH LAPEL PADDER, VALERIE S 382.00 ACUTE OTITIS MEDIA (LEFT) 04/06/2013 SALLY BLINDSTITCH LAPEL PADDER, VALERIE S 053.9 HERPES ZOSTER (SHINGLES) 04/06/2013 SALLY BLINDSTITCH LAPEL PADDER, VALERIE S 382.00 ACUTE OTITIS MEDIA (LEFT) 04/06/2013 SALLY BLINDSTITCH LAPEL PADDER, VALERIE S 053.9 HERPES ZOSTER (SHINGLES) 04/06/2013 SALLY BLINDSTITCH LAPEL PADDER, VALERIE S 382.00 ACUTE OTITIS MEDIA (LEFT) 04/06/2013 SALLY BLINDSTITCH LAPEL PADDER, VALERIE S 053.9 HERPES ZOSTER (SHINGLES) 04/06/2013 SALLY BLINDSTITCH LAPEL PADDER, VALERIE S 382.00 ACUTE OTITIS MEDIA (LEFT) 04/06/2013 YATES DO, KARO K 053.9 HERPES ZOSTER (SHINGLES) 04/06/2013 YATES DO, KARO K 382.00 ACUTE OTITIS MEDIA (LEFT) 04/06/2013 SALLY BLINDSTITCH LAPEL PADDER, VALERIE S 053.9 HERPES ZOSTER (SHINGLES) 04/06/2013 SALLY BLINDSTITCH LAPEL PADDER, VALERIE S 382.00 ACUTE OTITIS MEDIA (LEFT) 04/06/2013 YATES DO, KARO K 053.9 HERPES ZOSTER (SHINGLES) 04/06/2013 YATES DO, KARO K 382.00 ACUTE OTITIS MEDIA (LEFT) 04/06/2013 SALLY BLINDSTITCH LAPEL PADDER, VALERIE S 053.9 HERPES ZOSTER (SHINGLES) 04/06/2013 SALLY BLINDSTITCH LAPEL PADDER, VALERIE S 382.00 ACUTE OTITIS MEDIA (LEFT) 04/06/2013 SALLY BLINDSTITCH LAPEL PADDER, VALERIE S 053.9 HERPES ZOSTER (SHINGLES) 04/06/2013 SALLY BLINDSTITCH LAPEL PADDER, VALERIE S 382.00 ACUTE OTITIS MEDIA (LEFT) 04/06/2013 SALLY BLINDSTITCH LAPEL PADDER, VALERIE S 053.9 HERPES ZOSTER (SHINGLES) 04/06/2013 SALLY BLINDSTITCH LAPEL PADDER, VALERIE S 382.00 ACUTE OTITIS MEDIA (LEFT) 04/06/2013 YATES DO, KARO K 053.9 HERPES ZOSTER (SHINGLES) 04/06/2013 YATES DO, KARO K 382.00 ACUTE OTITIS MEDIA (LEFT) 04/06/2013 SALLY BLINDSTITCH LAPEL PADDER, VALERIE S 053.9 HERPES ZOSTER (SHINGLES) 04/06/2013 SALLY BLINDSTITCH LAPEL PADDER, VALERIE S 382.00 ACUTE OTITIS MEDIA (LEFT) 04/10/2013 SALLY BLINDSTITCH LAPEL PADDER, VALERIE S 380.4 CERUMEN IMPACTION 04/10/2013 SALLY BLINDSTITCH LAPEL PADDER, VALERIE S V76.12 MAMMOGRAM SCREENING 04/10/2013 YATES DO, KARO K 380.4 CERUMEN IMPACTION 04/10/2013 YATES DO, KARO K V76.12 MAMMOGRAM SCREENING 04/10/2013 SALLY BLINDSTITCH LAPEL PADDER, VALERIE S 380.4 CERUMEN IMPACTION 04/10/2013 SALLY BLINDSTITCH LAPEL PADDER, VALERIE S V76.12 MAMMOGRAM SCREENING 04/10/2013 SALLY BLINDSTITCH LAPEL PADDER, VALERIE S 380.4 CERUMEN IMPACTION 04/10/2013 SALLY BLINDSTITCH LAPEL PADDER, VALERIE S V76.12 MAMMOGRAM SCREENING 04/10/2013 SALLY BLINDSTITCH LAPEL PADDER, VALERIE S 380.4 CERUMEN IMPACTION 04/10/2013 SALLY BLINDSTITCH LAPEL PADDER, VALERIE S V76.12 MAMMOGRAM SCREENING 04/10/2013 SALLY BLINDSTITCH LAPEL PADDER, VALERIE S 380.4 CERUMEN IMPACTION 04/10/2013 SALLY BLINDSTITCH LAPEL PADDER, VALERIE S V76.12 MAMMOGRAM SCREENING 04/10/2013 SALLY BLINDSTITCH LAPEL PADDER, VALERIE S 380.4 CERUMEN IMPACTION 04/10/2013 SALLY BLINDSTITCH LAPEL PADDER, VALERIE S V76.12 MAMMOGRAM SCREENING 04/10/2013 SALLY BLINDSTITCH LAPEL PADDER, VALERIE S 380.4 CERUMEN IMPACTION 04/10/2013 SALLY BLINDSTITCH LAPEL PADDER, VALERIE S V76.12 MAMMOGRAM SCREENING 04/10/2013 SALLY BLINDSTITCH LAPEL PADDER, VALERIE S 380.4 CERUMEN IMPACTION 04/10/2013 SALLY BLINDSTITCH LAPEL PADDER, VALERIE S V76.12 MAMMOGRAM SCREENING 04/10/2013 YATES DO, KARO K 380.4 CERUMEN IMPACTION 04/10/2013 YATES DO, KARO K V76.12 MAMMOGRAM SCREENING 04/10/2013 SALLY BLINDSTITCH LAPEL PADDER, VALERIE S 380.4 CERUMEN IMPACTION 04/10/2013 SALLY BLINDSTITCH LAPEL PADDER, VALERIE S V76.12 MAMMOGRAM SCREENING 04/10/2013 YATES DO, KARO K 380.4 CERUMEN IMPACTION 04/10/2013 YATES DO, KARO K V76.12 MAMMOGRAM SCREENING 04/10/2013 SALLY BLINDSTITCH LAPEL PADDER, VALERIE S 380.4 CERUMEN IMPACTION 04/10/2013 SALLY BLINDSTITCH LAPEL PADDER, VALERIE S V76.12 MAMMOGRAM SCREENING 04/10/2013 SALLY BLINDSTITCH LAPEL PADDER, VALERIE S 380.4 CERUMEN IMPACTION 04/10/2013 SALLY BLINDSTITCH LAPEL PADDER, VALERIE S V76.12 MAMMOGRAM SCREENING 04/10/2013 SALLY BLINDSTITCH LAPEL PADDER, VALERIE S 380.4 CERUMEN IMPACTION 04/10/2013 SALLY BLINDSTITCH LAPEL PADDER, VALERIE S V76.12 MAMMOGRAM SCREENING 04/10/2013 YATES DO, KARO K 380.4 CERUMEN IMPACTION 04/10/2013 YATES DO, KARO K V76.12 MAMMOGRAM SCREENING 04/10/2013 SALLY BLINDSTITCH LAPEL PADDER, VALERIE S 380.4 CERUMEN IMPACTION 04/10/2013 SALLY BLINDSTITCH LAPEL PADDER, VALERIE S V76.12 MAMMOGRAM SCREENING 09/09/2013 SALLY BLINDSTITCH LAPEL PADDER, VALERIE S 272.4 HYPERLIPIDEMIA 09/09/2013 SALLY BLINDSTITCH LAPEL PADDER, VALERIE S 272.4 HYPERLIPIDEMIA 09/09/2013 SALLY BLINDSTITCH LAPEL PADDER, VALERIE S 272.4 HYPERLIPIDEMIA 09/09/2013 SALLY BLINDSTITCH LAPEL PADDER, VALERIE S 272.4 HYPERLIPIDEMIA 09/09/2013 YATES DO, KARO K 272.4 HYPERLIPIDEMIA 09/09/2013 SALLY BLINDSTITCH LAPEL PADDER, VALERIE S 272.4 HYPERLIPIDEMIA 09/09/2013 YATES DO, KARO K 272.4 HYPERLIPIDEMIA 09/09/2013 SALLY BLINDSTITCH LAPEL PADDER, VALERIE S 272.4 HYPERLIPIDEMIA 09/09/2013 SALLY BL[employer]ITCH [employer] P[employer]DER, VALERIE S 272.4 HYPERLIPIDEMIA 09/09/2013 SALLY BL[employer]ITCH [employer] P[employer]DER, VALERIE S 272.4 HYPERLIPIDEMIA 09/09/2013 YATES DO, KARO K 272.4 HYPERLIPIDEMIA 09/09/2013 SALLY [employer] P[employer], VALERIE S 272.4 HYPERLIPIDEMIA 10/17/2013 SALLY BL[employer] P[employer], VALERIE S 724.5 BACK PAIN, GENERAL 10/17/2013 SALLY BL[employer]ITCH [employer] P[employer], VALERIE S 724.5 BACK PAIN, GENERAL 10/17/2013 SALLY BL[employer]ITCH [employer] P[employer]DER, VALERIE S 724.5 BACK PAIN, GENERAL 10/17/2013 YATES DO, KARO K 724.5 BACK PAIN, GENERAL 10/17/2013 SALLY BL[employer]ITCH [employer] P[employer]DER, VALERIE S 724.5 BACK PAIN, GENERAL 10/17/2013 YATES DO, KARO K 724.5 BACK PAIN, GENERAL 10/17/2013 SALLY BL[employer]ITCH [employer] P[employer]DER, VALERIE S 724.5 BACK PAIN, GENERAL 10/17/2013 SALLY BL[employer]ITCH [employer] P[employer]DER, VALERIE S 724.5 BACK PAIN, GENERAL 10/17/2013 SALLY BL[employer]ITCH [employer] P[employer], VALERIE S 724.5 BACK PAIN, GENERAL 10/17/2013 YATES DO, KARO K 724.5 BACK PAIN, GENERAL 10/17/2013 SALLY BL[employer] P[employer], VALERIE S 724.5 BACK PAIN, GENERAL 12/03/2013 SALLY [employer], VALERIE S 496 COPD 12/03/2013 SALLY BL[employer] P[employer], VALERIE S 599.0 URINARY TRACT INFECTION 12/03/2013 SALLY BL[employer] P[employer], VALERIE S 788.41 URINARY FREQUENCY 12/03/2013 SALLY BL[employer] P[employer], VALERIE S 496 COPD 12/03/2013 SALLY BL[employer]ITCH [employer] P[employer]DER, VALERIE S 599.0 URINARY TRACT INFECTION 12/03/2013 SALLY BL[employer]ITCH [employer] P[employer]DER, VALERIE S 788.41 URINARY FREQUENCY 12/03/2013 YATES DO, KARO K 496 COPD 12/03/2013 YATES DO, KARO K 599.0 URINARY TRACT INFECTION 12/03/2013 YATES DO, KARO K 788.41 URINARY FREQUENCY 12/03/2013 SALLY BL[employer]ITCH [employer] P[employer], VALERIE S 496 COPD 12/03/2013 SALLY BL[employer]ITCH [employer] P[employer]DER, VALERIE S 599.0 URINARY TRACT INFECTION 12/03/2013 SALLY BL[employer]ITCH [employer] P[employer]DER, VALERIE S 788.41 URINARY FREQUENCY 12/03/2013 YATES DO, KARO K 496 COPD 12/03/2013 YATES DO, KARO K 599.0 URINARY TRACT INFECTION 12/03/2013 YATES DO, KARO K 788.41 URINARY FREQUENCY 12/03/2013 SALLY BL[employer]ITCH [employer] P[employer], VALERIE S 496 COPD 12/03/2013 SALLY BL[employer]ITCH [employer] P[employer]DER, VALERIE S 599.0 URINARY TRACT INFECTION 12/03/2013 SALLY BL[employer] P[employer], VALERIE S 788.41 URINARY FREQUENCY 12/03/2013 SALLY BL[employer]ITCH [employer] P[employer]DER, VALERIE S 496 COPD 12/03/2013 SALLY BL[employer] P[employer]DER, VALERIE S 599.0 URINARY TRACT INFECTION 12/03/2013 SALLY BL[employer]ITCH [employer] P[employer]DER, VALERIE S 788.41 URINARY FREQUENCY 12/03/2013 SALLY BL[employer]ITCH [employer] P[employer]DER, VALERIE S 496 COPD 12/03/2013 SALLY BL[employer]ITCH [employer] P[employer]DER, VALERIE S 599.0 URINARY TRACT INFECTION 12/03/2013 SALLY BL[employer]ITCH [employer] P[employer]DER, VALERIE S 788.41 URINARY FREQUENCY 12/03/2013 YATES DO, KARO K 496 COPD 12/03/2013 YATES DO, KARO K 599.0 URINARY TRACT INFECTION 12/03/2013 YATES DO, KARO K 788.41 URINARY FREQUENCY 12/03/2013 SALLY BL[employer] P[employer], VALERIE S 496 COPD 12/03/2013 SALLY BL[employer] P[employer]DER, VALERIE S 599.0 URINARY TRACT INFECTION 12/03/2013 SALLY BL[employer], VALERIE S 788.41 URINARY FREQUENCY 01/23/2014 YATES DO, KARO K 477.0 ALLERGIC RHINITIS DUE TO POLLEN 01/23/2014 SALLY BL[employer], VALERIE S 477.0 ALLERGIC RHINITIS DUE TO POLLEN 01/23/2014 YATES DO, KARO K 477.0 ALLERGIC RHINITIS DUE TO POLLEN 01/23/2014 SALLY BL[employer] P[employer], VALERIE S 477.0 ALLERGIC RHINITIS DUE TO POLLEN 01/23/2014 SALLY BL[employer]ITCH [employer] P[employer]DER, VALERIE S 477.0 ALLERGIC RHINITIS DUE TO POLLEN 01/23/2014 SALLY BL[employer]ITCH [employer] P[employer]DER, VALERIE S 477.0 ALLERGIC RHINITIS DUE TO POLLEN 01/23/2014 YATES DO, KARO K 477.0 ALLERGIC RHINITIS DUE TO POLLEN 01/23/2014 SALLY [employer], VALERIE S 477.0 ALLERGIC RHINITIS DUE TO POLLEN 02/26/2014 MIKE NICHOLSON L Ot 564.00 UNSPEC CONSTIPATION 02/26/2014 MIKE NICHOLSON Ot 788.0 RENAL COLIC 02/26/2014 MIKE NICHOLSON L Ot 789.09 ABDOMINAL PAIN, OTHER SPECIFIED SITE 03/03/2014 SALLY BL[employer]ITCH [employer], VALERIE S 592.0 CALCULUS OF KIDNEY 03/03/2014 YATES DO, KARO K 592.0 CALCULUS OF KIDNEY 03/03/2014 SALLY BL[employer] P[employer], VALERIE S 592.0 CALCULUS OF KIDNEY 03/03/2014 SALLY BL[employer]ITCH [employer] P[employer]DER, VALERIE S 592.0 CALCULUS OF KIDNEY 03/03/2014 SALLY BL[employer]ITCH [employer] P[employer]DER, VALERIE S 592.0 CALCULUS OF KIDNEY 03/03/2014 YATES DO, KARO K 592.0 CALCULUS OF KIDNEY 03/03/2014 SALLY BL[employer] P[employer], VALERIE S 592.0 CALCULUS OF KIDNEY 04/07/2014 YATES DO, KARO K 789.01 ABDOMINAL PAIN RIGHT UPPER QUADRANT 04/07/2014 SALLY BL[employer]ITCH [employer], VALERIE S 789.01 ABDOMINAL PAIN RIGHT UPPER QUADRANT 04/07/2014 SALLY BL[employer] P[employer], VALERIE S 789.01 ABDOMINAL PAIN RIGHT UPPER QUADRANT 04/07/2014 SALLY BL[employer], VALERIE S 789.01 ABDOMINAL PAIN RIGHT UPPER QUADRANT 04/07/2014 YATES DO, KARO K 789.01 ABDOMINAL PAIN RIGHT UPPER QUADRANT 04/07/2014 SALLY BLINDSTITCH LAPEL PADDER, VALERIE S 789.01 ABDOMINAL PAIN RIGHT UPPER [...] 10/29/2014 VALERIE ZAVALA Ot 382.00 10/29/2014 VALERIE AZVALA INTEGRATION SOLUTION ARCHITECT Ot 401.1 10/29/2014 VALERIE ZAVALAP Ot 564.1 10/29/2014 VALERIE ZAVALA INTEGRATION SOLUTION ARCHITECT Ot 719.40 10/29/2014 VALERIE ZAVALA INTEGRATION SOLUTION ARCHITECT Ot 786.52 10/29/2014 VALERIE ZAVALA INTEGRATION SOLUTION ARCHITECT Ot V76.12 10/29/2014 SEDRICK DOBSON R BLINDSTITCH LAPEL PADDER Ot 338.4 10/29/2014 BRONSON SEDRICK R BLINDSTITCH LAPEL PADDER Ot 401.1 10/29/2014 SEDRICK DOBSON R BLINDSTITCH LAPEL PADDER Ot 564.1 10/29/2014 SEDRICK DOBSON R BLINDSTITCH LAPEL PADDER Ot 719.40 10/29/2014 VALERIE ZAVALA INTEGRATION SOLUTION ARCHITECT Ot 789.01 10/29/2014 BALTAZAR COTTER DO Ot 789.01 10/29/2014 VALERIE ZAVALA INTEGRATION SOLUTION ARCHITECT Ot 789.09 11/03/2014 DOLORES DPM, SHERI Q [...] VALERIE ZAVALAP Ot 380.4 03/31/2015 VALERIE ZAVALA INTEGRATION SOLUTION ARCHITECT Ot 382.00 03/31/2015 VALERIE ZAVALA INTEGRATION SOLUTION ARCHITECT Ot 401.1 03/31/2015 VALERIE ZAVALA INTEGRATION SOLUTION ARCHITECT Ot 564.1 03/31/2015 VALERIE ZAVALA INTEGRATION SOLUTION ARCHITECT Ot 719.40 03/31/2015 VALERIE ZAVALA INTEGRATION SOLUTION ARCHITECT Ot 786.52 03/31/2015 VALERIE ZAVALA INTEGRATION SOLUTION ARCHITECT Ot V76.12 03/31/2015 BRONSON SEDRICK R BLINDSTITCH LAPEL PADDER Ot 338.4 03/31/2015 BRONSON SEDRICK R BLINDSTITCH LAPEL PADDER Ot 401.1 03/31/2015 BRONSON SEDRICK R BLINDSTITCH LAPEL PADDER Ot 564.1 03/31/2015 BRONSON SEDRICK R BLINDSTITCH LAPEL PADDER Ot 719.40 03/31/2015 VALERIE ZAVALA INTEGRATION SOLUTION ARCHITECT Ot 789.01 03/31/2015 COTTER BALTAZAR RAMIREZ Ot 789.01 03/31/2015 VALERIE ZAVALA INTEGRATION SOLUTION ARCHITECT Ot 789.09 03/31/2015 DOLORES DPM, SHERI Q [...] Ot 786.52 PAINFUL RESPIRATION 10/23/2015 SALLY, VALERIE INTEGRATION SOLUTION ARCHITECT Ot V76.12 OTH SCREEN MAMMO-MALIGN NEOPLASM OF JOSIAH 10/23/2015 SEDRICK DOBSON BLINDSTITCH LAPEL PADDER Ot 338.4 CHRONIC PAIN SYNDROME 10/23/2015 SEDRICK DOBSON BLINDSTITCH LAPEL PADDER Ot 401.1 BENIGN HYPERTENSION 10/23/2015 SEDRICK DOBSON BLINDSTITCH LAPEL PADDER Ot 564.1 IRRITABLE BOWEL SYNDROME 10/23/2015 SEDRICK DOBSON BLINDSTITCH LAPEL PADDER Ot 719.40 JOINT PAIN-UNSPEC 10/23/2015 VALERIE ZAVALA INTEGRATION SOLUTION ARCHITECT Ot 789.01 ABDOMINAL PAIN, RIGHT UPPER QUADRANT 10/23/2015 COTTER BALTAZAR RAMIREZ Delia Ot 789.01 ABDOMINAL PAIN, RIGHT UPPER QUADRANT 10/23/2015 VALERIE ZAVALA INTEGRATION SOLUTION ARCHITECT Ot 789.09 ABDOMINAL PAIN, OTHER SPECIFIED SITE 10/23/2015 DOLORES DPM, SHERI Q Ot 735.0 HALLUX VALGUS 10/23/2015 DOLORES DPM, SHERI Q Ot 735.4 OTHER HAMMER TOE 10/23/2015 DOLORES DPM, SHERI Q Ot V72.81 [id number] CARDIOVASCULAR 10/23/2015 DOLORES DPM, SHERI Q Ot [...] LOWER ABDOMINAL PAIN, UNSPECIFIED 2015 SALLYVALERIE FERGUSON INTEGRATION SOLUTION ARCHITECT Ot R10.11 RIGHT UPPER QUADRANT PAIN 11/12/2015 VALERIE ZAVALA INTEGRATION SOLUTION ARCHITECT Ot R10.11 RIGHT UPPER QUADRANT PAIN 11/19/2015 VALERIE ZAVALA INTEGRATION SOLUTION ARCHITECT Ot R10.11 RIGHT UPPER QUADRANT PAIN 05/29/2016 [...] LUMB/ LUMBOSAC DISC DEGEN 06/02/2016 VALERIE ZAVALA INTEGRATION SOLUTION ARCHITECT Ot 053.9 HERPES ZOSTER NOS 06/02/2016 VALERIE ZAVALA INTEGRATION SOLUTION ARCHITECT Ot 338.4 CHRONIC PAIN SYNDROME 06/02/2016 VALERIE ZAVALA INTEGRATION SOLUTION ARCHITECT Ot 380.4 IMPACTED CERUMEN 06/02/2016 VALERIE ZAVALA INTEGRATION SOLUTION ARCHITECT Ot 382.00 AC SUPP OTITIS MEDIA NOS 06/02/2016 VALERIE ZAVALA INTEGRATION SOLUTION ARCHITECT Ot 401.1 BENIGN HYPERTENSION 06/02/2016 VALERIE ZAVALAP Ot 564.1 IRRITABLE BOWEL SYNDROME 06/02/2016 VALERIE ZAVALAP Ot 719.40 JOINT PAIN-UNSPEC 06/02/2016 VALERIE ZAVALAP Ot 786.52 PAINFUL RESPIRATION 06/02/2016 VALERIE ZAVALAP Ot V76.12 OTH SCREEN MAMMO-MALIGN NEOPLASM OF JOSIAH 06/02/2016 SEDRICK DOBSON BLINDSTITCH LAPEL PADDER Ot 338.4 CHRONIC PAIN SYNDROME 06/02/2016 SEDRICK DOBSON BLINDSTITCH LAPEL PADDER Ot 401.1 BENIGN HYPERTENSION 06/02/2016 SEDRICK DOBSON BLINDSTITCH LAPEL PADDER Ot 564.1 IRRITABLE BOWEL SYNDROME 06/02/2016 SEDRICK DOBSON BLINDSTITCH LAPEL PADDER Ot 719.40 JOINT PAIN-UNSPEC 06/02/2016 VALERIE ZAVALA Ot 789.01 ABDOMINAL PAIN, RIGHT UPPER QUADRANT 06/02/2016 BALTAZAR COTTER DO Ot 789.01 ABDOMINAL PAIN, RIGHT UPPER QUADRANT 06/02/2016 VALERIE ZAVALA Ot 789.09 ABDOMINAL PAIN, OTHER SPECIFIED SITE 06/02/2016 DOLORES DPM, SHERI Q Ot 735.0 HALLUX VALGUS 06/02/2016 DOLORES DPM, SHERI Q Ot 735.4 OTHER HAMMER TOE 06/02/2016 DOLORES DPM, SHERI Q Ot V72.81 [id number] CARDIOVASCULAR 06/02/2016 DOLORES DPM, SHERI Q Ot [...] RIGHT ARTIFICIAL KNEE JOINT 06/25/2016 ANDREW KANG INTEGRATION SOLUTION ARCHITECT Ot I10 ESSENTIAL (PRIMARY) HYPERTENSION 06/25/2016 ANDREW KANGP Ot J44.9 CHRONIC OBSTRUCTIVE PULMONARY DISEASE, U 06/25/2016 PEARL, ANDREW INTEGRATION SOLUTION ARCHITECT Ot N39.0 URINARY TRACT INFECTION, SITE NOT SPECIF 06/25/2016 PEARL, ANDREW INTEGRATION SOLUTION ARCHITECT Ot R30.0 DYSURIA 06/28/2016 PEARL ANDREW INTEGRATION SOLUTION ARCHITECT Ot I10 ESSENTIAL (PRIMARY) HYPERTENSION 06/28/2016 PEARL ANDREW INTEGRATION SOLUTION ARCHITECT Ot J44.9 CHRONIC OBSTRUCTIVE PULMONARY DISEASE, U 06/28/2016 PEARL, ANDREW INTEGRATION SOLUTION ARCHITECT Ot N39.0 URINARY TRACT INFECTION, SITE NOT SPECIF 06/28/2016 PEARL ANDREW INTEGRATION SOLUTION ARCHITECT Ot R30.0 DYSURIA 07/08/2016 BINU JAVIER MD Ot I10 ESSENTIAL (PRIMARY) HYPERTENSION 07/08/2016 BINU JAVIER MD T Ot J44.9 CHRONIC OBSTRUCTIVE PULMONARY DISEASE, U 07/08/2016 BINU JAVIER MD T Ot N32.89 OTHER SPECIFIED DISORDERS OF BLADDER 07/08/2016 BINU JAVIER MD Ot N39.0 URINARY TRACT INFECTION, SITE NOT SPECIF 07/08/2016 BINU JAVIER MD Ot R30.0 DYSURIA 07/08/2016 BINU JAVIER MD Ot Z79.899 OTHER ROLLER STAKER (CURRENT) DRUG THERAPY 07/11/2016 BINU JAVIER MD Ot I10 ESSENTIAL (PRIMARY) HYPERTENSION 07/11/2016 BINU JAVIER MD Ot J44.9 CHRONIC OBSTRUCTIVE PULMONARY DISEASE, U 07/11/2016 BINU JAVIER MD Ot N32.89 OTHER SPECIFIED DISORDERS OF BLADDER 07/11/2016 BINU JAVIER MD Ot N39.0 URINARY TRACT INFECTION, SITE NOT SPECIF 07/11/2016 BINU JAVIER MD Ot R30.0 DYSURIA 07/11/2016 BINU JAVIER MD T Ot Z79.899 OTHER ROLLER STAKER (CURRENT) DRUG THERAPY 07/13/2016 BINU JAVIER MD Ot I10 ESSENTIAL (PRIMARY) HYPERTENSION 07/13/2016 BINU JAVIER MD Ot J44.9 CHRONIC OBSTRUCTIVE PULMONARY DISEASE, U 07/13/2016 BINU JAVIER MD T Ot N32.89 OTHER SPECIFIED DISORDERS OF BLADDER 07/13/2016 BINU JAVIER MD Ot N39.0 URINARY TRACT INFECTION, SITE NOT SPECIF 07/13/2016 BINU JAVIER MD Ot R30.0 DYSURIA 07/13/2016 BINU JAVIER MD T Ot Z79.899 OTHER ROLLER STAKER (CURRENT) DRUG THERAPY 08/21/2016 LORETO TIPTON DO [...] SAEED DO, LORETO K Ot Z79.899 OTHER INTERMEDIATE (CURRENT) DRUG THERAPY 08/23/2016 SAEED DO, LORETO K Ot F17.210 NICOTINE DEPENDENCE, CIGARETTES, UNCOMPL 08/23/2016 SAEED DO, LORETO K Ot I10 ESSENTIAL (PRIMARY) HYPERTENSION 08/23/2016 SAEED DO, LOERTO K Ot J44.9 CHRONIC OBSTRUCTIVE PULMONARY DISEASE, U 08/23/2016 SAEED DO, LORETO K Ot N30.91 CYSTITIS, UNSPECIFIED WITH HEMATURIA 08/23/2016 SAEED DO, LORETO K Ot N39.0 URINARY TRACT INFECTION, SITE NOT SPECIF 08/23/2016 SAEED DO, LORETO K Ot Z79.899 OTHER INTERMEDIATE (CURRENT) DRUG THERAPY 09/18/2016 THANH MAO MD [...] WITH VOMITING, UNSPECIFIED 02/09/2017 SEDRICK DOBSON R BLINDSTITCH LAPEL PADDER Ot R10.31 RIGHT LOWER QUADRANT PAIN 02/28/2017 BRONSON SEDRICK R BLINDSTITCH LAPEL PADDER Ot R10.31 RIGHT LOWER QUADRANT PAIN 03/10/2017 BRONSON SEDRICK R BLINDSTITCH LAPEL PADDER Ot R10.31 RIGHT LOWER QUADRANT PAIN 05/17/2017 ADRIAN ZAVALAA INTEGRATION SOLUTION ARCHITECT Ot N20.0 CALCULUS OF KIDNEY 05/17/2017 ADRIAN ZAVALAA INTEGRATION SOLUTION ARCHITECT Ot R91.8 OTHER NONSPECIFIC ABNORMAL FINDING OF DAVID 06/02/2017 ADRIAN ZAVALAA INTEGRATION SOLUTION ARCHITECT Ot R31.9 HEMATURIA, UNSPECIFIED 06/02/2017 ADRIAN ZAVALAA INTEGRATION SOLUTION ARCHITECT Ot Z87.442 PERSONAL HISTORY OF URINARY CALCULI 06/07/2017 ADRIAN ZAVALAA INTEGRATION SOLUTION ARCHITECT Ot R31.9 HEMATURIA, UNSPECIFIED 06/07/2017 SALLY, VALERIE INTEGRATION SOLUTION ARCHITECT Ot Z87.442 PERSONAL HISTORY OF URINARY CALCULI 06/13/2017 ADRIAN ZAVALAA INTEGRATION SOLUTION ARCHITECT Ot N20.0 CALCULUS OF KIDNEY 06/13/2017 SALLYADRIAN FERGUSONA INTEGRATION SOLUTION ARCHITECT Ot R91.8 OTHER NONSPECIFIC ABNORMAL FINDING OF DAVID 06/16/2017 ADRIAN ZAVALAA INTEGRATION SOLUTION ARCHITECT Ot N20.0 CALCULUS OF KIDNEY 06/16/2017 ADRIAN ZAVALAA INTEGRATION SOLUTION ARCHITECT Ot R91.8 OTHER NONSPECIFIC ABNORMAL FINDING OF DAVID 06/23/2017 ADRIAN ZAVALAA INTEGRATION SOLUTION ARCHITECT Ot R31.9 HEMATURIA, UNSPECIFIED 06/23/2017 ADRIAN ZAVALAA INTEGRATION SOLUTION ARCHITECT Ot Z87.442 PERSONAL HISTORY OF URINARY CALCULI 07/21/2017 ADRIAN ZAVALAA INTEGRATION SOLUTION ARCHITECT Ot R31.9 HEMATURIA, UNSPECIFIED 07/21/2017 ADRIAN ZAVALAA INTEGRATION SOLUTION ARCHITECT Ot Z87.442 PERSONAL HISTORY OF URINARY CALCULI [...] LUMB/ LUMBOSAC DISC DEGEN 09/01/2017 VALERIE ZAVALA INTEGRATION SOLUTION ARCHITECT Ot 053.9 HERPES ZOSTER NOS 09/01/2017 VALERIE ZAVALA INTEGRATION SOLUTION ARCHITECT Ot 338.4 CHRONIC PAIN SYNDROME 09/01/2017 VALERIE ZAVALA INTEGRATION SOLUTION ARCHITECT Ot 380.4 IMPACTED CERUMEN 09/01/2017 VALERIE ZAVALA INTEGRATION SOLUTION ARCHITECT Ot 382.00 AC SUPP OTITIS MEDIA NOS 09/01/2017 VALERIE ZAVALA INTEGRATION SOLUTION ARCHITECT Ot 401.1 BENIGN HYPERTENSION 09/01/2017 VALERIE ZAVALA INTEGRATION SOLUTION ARCHITECT Ot 564.1 IRRITABLE BOWEL SYNDROME 09/01/2017 VALERIE ZAVALA INTEGRATION SOLUTION ARCHITECT Ot 719.40 JOINT PAIN-UNSPEC 09/01/2017 VALERIE ZAVALA INTEGRATION SOLUTION ARCHITECT Ot 786.52 PAINFUL RESPIRATION 09/01/2017 VALERIE ZAVALA INTEGRATION SOLUTION ARCHITECT Ot V76.12 OTH SCREEN MAMMO-MALIGN NEOPLASM OF JOSIAH 09/01/2017 SEDRICK DOBSON BLINDSTITCH LAPEL PADDER Ot 338.4 CHRONIC PAIN SYNDROME 09/01/2017 SEDRICK DOBSON BLINDSTITCH LAPEL PADDER Ot 401.1 BENIGN HYPERTENSION 09/01/2017 SEDRICK DOBSON BLINDSTITCH LAPEL PADDER Ot 564.1 IRRITABLE BOWEL SYNDROME 09/01/2017 SEDRICK DOBSON BLINDSTITCH LAPEL PADDER Ot 719.40 JOINT PAIN-UNSPEC 09/01/2017 VALERIE ZAVALA INTEGRATION SOLUTION ARCHITECT Ot 789.01 ABDOMINAL PAIN, RIGHT UPPER QUADRANT 09/01/2017 BALTAZAR COTTER DO Ot 789.01 ABDOMINAL PAIN, RIGHT UPPER QUADRANT 09/01/2017 VALERIE ZAVALAP Ot 789.09 ABDOMINAL PAIN, OTHER SPECIFIED SITE 09/01/2017 DOLORES DPM, SHERI Q Ot 735.0 HALLUX VALGUS 09/01/2017 DOLORES DPM, SHERI Q Ot 735.4 OTHER HAMMER TOE 09/01/2017 DOLORES DPM, SHERI Q Ot V72.81 [id number] CARDIOVASCULAR 09/01/2017 DOLORES DPM, SHERI Q Ot [...] FOR OTHER PREPROCEDURAL EXAMIN 09/01/2017 SEDRICK DOBSON BLINDSTITCH LAPEL PADDER Ot R10.31 RIGHT LOWER QUADRANT PAIN 09/01/2017 VALERIE ZAVALAP Ot N20.0 CALCULUS OF KIDNEY 09/01/2017 VALERIE ZAVALA Ot R91.8 OTHER NONSPECIFIC ABNORMAL FINDING OF DAVID 09/01/2017 VALERIE ZAVALAP Ot R31.9 HEMATURIA, UNSPECIFIED 09/01/2017 VALERIE ZAVALAP Ot Z87.442 PERSONAL HISTORY OF URINARY CALCULI 09/21/2017 SALLY, VALERIE INTEGRATION SOLUTION ARCHITECT Ot Z12.31 ENCNTR SCREEN MAMMOGRAM FOR MALIGNANT NE 09/22/2017 SALLYSERINAVALERIE INTEGRATION SOLUTION ARCHITECT Ot Z12.31 ENCNTR SCREEN MAMMOGRAM FOR MALIGNANT [...] AN 10/05/2017 CYDNEY ANDERSON APRN Ot Z79.51 INTERMEDIATE (CURRENT) USE OF INHALED STERO 10/05/2017 CYDNEY [...] F32.9 MAJOR DEPRESSIVE DISORDER, SINGLE EPISOD 11/29/2017 RBII ABRAMS, DEB Fuller Ot F41.9 ANXIETY DISORDER, [...] Procedures Code Description [place] [address] XRAY FOOT LEFT 2 VIEWS 03/16/2012 INJ TENDON SHEATH/LIGAMENT 06/29/2012 37274 XRAY FOOT RIGHT 2 VIEWS 06/29/2012 49013 XRAY FOOT LEFT 2 VIEWS 06/29/2012 81532 MRI SPINE (LUMBAR) W/O CONTRAST 07/05/2012 35685 CULTURE URINE 08/01/2012 95243 ROUTINE VENIPUNCTURE 02/04/2013 23989 URINE DRUG SCREEN (IN-HOUSE ) 02/04/2013 84071 CBC 02/04/2013 59444 CMP 02/04/2013 10752 URIC ACID 02/04/2013 83485 LIPID PANEL 02/04/2013 1047253 GFR CALC (RESULT ONLY) 02/04/2013 81209 CRP 02/04/2013 05133 ESR/SED RATE 02/04/2013 65666 ASO 02/05/2013 26121 RA FACTOR 02/05/2013 ANAANA PEMA ANALYZER (SCREEN) 02/05/2013 G0008 FLU ADMINISTRATION ( MEDICARE ONLY) 02/17/2013 86057 XRAY CHEST 2 VIEW 04/10/2013 75556 MAMMOGRAM, SCREENING 05/07/2013 91791 URINE DRUG SCREEN (IN-HOUSE ) 06/04/2013 07786 US RENAL ARTERY DOPPLER 09/12/2013 36497 XRAY S-C JOINTS 2 OR MORE VIEWS 10/17/2013 52109 XRAY PELVIS 1 OR 2 VIEWS 10/17/2013 Physical Physical Therapy, [facility] 10/17/2013 80865 ROUTINE VENIPUNCTURE 02/18/2014 8314705 GFR CALC (RESULT ONLY) 02/18/2014 49383 CMP 02/18/2014 46750 LIPID PANEL 02/18/2014 Urology Frank Cole 03/03/2014 69732 UA W/ CULTURE IF INDICATED 04/07/2014 47152 US GALLBLADDER ULTRASOUND 04/07/2014 66972 HIDA SCAN 04/07/2014 General S Baltazar Cotter 04/29/2014 24139 UA LONG DIP 05/31/2014 67883 ROUTINE VENIPUNCTURE 06/04/2014 7275039 GFR CALC (RESULT ONLY) 06/04/2014 64287 CMP 06/04/2014 47290 CBC 06/04/2014 02851 CELIAC DISEASE ANALYZER 06/06/2014 52288 N-METHYLHISTAMINE, 24HR URINE 06/19/2014 05834 XRAY KNEE RIGHT 3 VIEWS 08/25/2014 Albaro [...] 05/29/16 16:50 Bacterial blood culture NG [facility] Bacterial blood culture - 05/29/16 17:02 Bacterial blood culture NG [facility] Complete blood count (CBC) with automated white [...] culture - 06/02/16 17:06 Bacterial urine culture [id number] NRG COLONY COUNT >100,000/ML NR FTX;REPORTABLE SENSITIVITY REPORTED 06/03 16:25 [facility] Bacterial susceptibility panel - 06/02/16 17:06 Gentamicin [...] test by minimum inhibitory concentration - [facility] Urine osmolality - 06/02/16 17:06 Urine osmolality [...] culture - 06/25/16 13:40 Bacterial urine culture [id number] NRG COLONY COUNT 10,000/ML - 100,000/ML NRG FTX;REPORTABLE SENSITIVITIES REPORTED AT 0849, 06-27-16 NR URINE CULTURE RESULTS PLUS [facility] Bacterial susceptibility panel - 06/25/16 13:40 Gentamicin [...] test by minimum inhibitory concentration - [facility] Bacterial susceptibility panel - 06/25/16 13:40 Gentamicin [...] culture - 07/08/16 16:35 Bacterial urine culture [id number] NRG COLONY COUNT >100,000/ML NRG FTX;REPORTABLE SENSITIVITY [...] culture - 08/21/16 18:45 Bacterial urine culture [id number] NRG COLONY COUNT >100,000/ML NRG FTX;REPORTABLE SENSITIVITY [...] Status Pt. Type Provider Facility Loc./Unit Complaint [id number] 08/25/2014 15:28:00 08/25/2014 23:59:59 CLS Outpatient VALERIE ZAVALA APRN [id number] 07/14/2014 09:55:00 07/14/2014 23:59:59 CLS Outpatient MILAN RAMIREZKARO Sunshine [id number] 05/31/2014 09:29:00 05/31/2014 23:59:59 CLS Outpatient VALERIE ZAVALA APRN [id number] 05/31/2014 09:29:00 05/31/2014 23:59:59 CLS Outpatient VALERIE ZAVALA APRN [id number] 04/07/2014 12:21:00 04/07/2014 23:59:59 CLS Outpatient VALERIE ZAVALA APRN [id number] 04/07/2014 12:21:00 04/07/2014 23:59:59 CLS Outpatient MILAN DO KARO Gonsalez [id number] 02/18/2014 13:43:00 02/18/2014 23:59:59 CLS Outpatient SALLY BLINDSTITCH LAPEL PADDERADRIANA S [id number] 01/23/2014 17:27:00 01/23/2014 23:59:59 CLS Outpatient MILAN RAMIREZ KARO Gonsalez [id number] 12/03/2013 09:16:00 12/03/2013 23:59:59 CLS Outpatient SALLY BLINDSTITCH LAPEL PADDERSERINAVALERIE S [id number] 12/03/2013 09:16:00 12/03/2013 23:59:59 CLS Outpatient SALLY BLINDSTITCH LAPEL PADDERSERINAVALERIE S [id number] 10/17/2013 13:45:00 10/17/2013 23:59:59 CLS Outpatient SALLY BLINDSTITCH LAPEL PADDERSERINAVALERIE S [id number] 09/09/2013 10:47:00 09/09/2013 23:59:59 CLS Outpatient SALLY BLINDSTITCH LAPEL PADDERSERINAVALERIE S [id number] 06/04/2013 10:50:00 06/04/2013 23:59:59 CLS Outpatient SALLY BLINDSTITCH LAPEL PADDERSERINAVALERIE S [id number] 06/04/2013 10:50:00 06/04/2013 23:59:59 CLS Outpatient SALLY BLINDSTITCH LAPEL PADDERSERINAVALERIE S [id number] 05/07/2013 11:28:00 05/07/2013 23:59:59 CLS Outpatient SALLY BLINDSTITCH LAPEL PADDERSERINAVALERIE S [id number] 04/10/2013 16:12:00 04/10/2013 23:59:59 CLS Outpatient SALLY BLINDSTITCH LAPEL PADDERSERINAVALERIE S [id number] 04/10/2013 16:12:00 04/10/2013 23:59:59 CLS Outpatient YATES DOKARO [id number] 04/06/2013 11:17:00 04/06/2013 23:59:59 CLS Outpatient MILAN KARO [id number] 04/02/2013 10:20:00 04/02/2013 23:59:59 CLS Outpatient SALLY BLINDSTITCH LAPEL PADDERSERINAVALERIE S [id number] 02/04/2013 11:19:00 02/04/2013 23:59:59 CLS Outpatient MICHELLE CAMARGO MD [id number] 02/04/2013 11:19:00 02/04/2013 23:59:59 CLS Outpatient VALERIE ZAVALA APRN [id number] 08/10/2012 09:19:00 08/10/2012 23:59:59 CLS Outpatient KARO YATES DO [id number] 07/30/2012 08:25:00 07/30/2012 23:59:59 CLS Outpatient SALLY PERSAUDNVALERIE S [id number] 07/04/2012 13:20:00 07/04/2012 23:59:59 CLS Outpatient SALLY PERSAUDNVALERIE S [id number] 06/29/2012 08:10:00 06/29/2012 23:59:59 CLS Outpatient KARO YATES DO Sunshine [id number] 06/13/2012 14:07:00 06/13/2012 23:59:59 CLS Outpatient VALERIE ZAVALA APRN [id number] 06/05/2012 11:37:00 06/05/2012 23:59:59 CLS Outpatient [id number] 05/29/2012 16:36:00 05/29/2012 23:59:59 CLS Outpatient ZORAIDA ESPAÑA APRN [id number] 03/30/2012 09:50:00 03/30/2012 23:59:59 CLS Outpatient KARO YATES DO Sunshine [id number] 02/14/2012 13:28:00 02/14/2012 23:59:59 CLS Outpatient KARO YATES DO Sunshine [id number] 11/13/2012 14:22:00 Document Registration [id number] 11/13/2012 14:22:00 Document Registration [id number] 09/21/2012 09:46:00 Document Registration [id number] 01/02/2015 04:06:53 ACT Document Registration [id number] 12/30/2017 21:24:00 01/01/2018 12:20:00 DIS Inpatient GINA ABRAMS, RAISSA Talley [facility] 4TH CARDIOGENIC HYPOTENSION, ABD PAIN,UTI [id number] 11/27/2017 15:12:00 11/27/2017 17:52:00 DIS Emergency BRII ABRAMS, DEB Fuller [facility] ER HIGH BP;UTI [id number] 10/05/2017 15:40:00 10/05/2017 16:50:00 DIS Emergency CYDNEY ANDERSON BLINDSTITCH LAPEL PADDER [facility] ER FALL;R KNEE [id number] 09/21/2017 13:41:00 09/21/2017 23:59:59 CLS Outpatient VALERIE ZAVALA [facility] RAD Z12.31 SCREENING MAMMO [id number] 09/04/2017 08:30:00 09/04/2017 23:59:59 CLS Preadmit AUDIE ROBISON MD [facility] ENDO GERD/WT LOSS [id number] 08/28/2017 05:38:00 08/28/2017 09:34:00 DIS Outpatient AUDIE ROBISON MD [facility] PREOP EGD [id number] 06/01/2017 14:47:00 06/01/2017 23:59:59 CLS Outpatient VALERIE ZAVALA [facility] RAD R31.9 HEMATURIA [id number] 05/16/2017 11:28:00 05/16/2017 23:59:59 CLS Outpatient VALERIE ZAVALA [facility] RAD R10.31 RIGHT LOWER QUADRANT ABDOMINAL PAIN [id number] 02/08/2017 14:15:00 02/08/2017 23:59:59 CLS Outpatient SEDRICK DOBSON BLINDSTITCH LAPEL PADDER [facility] LAB R10.31 [id number] 09/18/2016 11:44:00 09/18/2016 15:05:00 DIS Emergency MAYCO ABRAMS, THANH June [facility] ER ABD PAIN [id number] 08/21/2016 17:56:00 08/21/2016 20:28:00 DIS Emergency LORETO TIPTON DO [facility] ER UTI SYMPTOMS [id number] 07/08/2016 15:53:00 07/08/2016 17:45:00 DIS Emergency BINU JAVIER MD [facility] ER UTI SX [id number] 06/25/2016 13:23:00 06/25/2016 14:34:00 DIS Emergency ANDREW KANG [facility] ER UTI SYMPTOMS [id number] 06/23/2016 05:59:00 06/23/2016 23:59:59 CLS Outpatient AUDIE ROBISON MD [facility] PREOP GERD [id number] 06/02/2016 01:23:00 06/03/2016 12:15:00 DIS Inpatient RAISSA FUENTES MD [facility] ICU COPD EXACERBATION [id number] 05/29/2016 15:59:00 05/29/2016 18:15:00 DIS Emergency CYDNEY ANDERSON APRN [facility] ER COUGH/DIFF BREATHING/ WEAKNESS [id number] 10/23/2015 08:47:00 10/23/2015 23:59:59 CLS Outpatient VALERIE ZAVALA [facility] RAD RUQ ABD PAIN [id number] 10/23/2015 13:52:00 10/23/2015 16:58:00 DIS Emergency MIKAELA MIN MD [facility] ER ABD PAIN [id number] 08/12/2015 13:46:00 08/12/2015 23:59:59 CLS Preadmit VALERIE ZAVALA [facility] REHAB [id number] 03/31/2015 12:24:00 03/31/2015 23:59:59 CLS Outpatient ALBARO PARADA MD [facility] RAD LUMBAR RADICULOPATHY [id number] 01/07/2015 06:00:00 01/10/2015 11:06:00 DIS Inpatient ALBARO PARADA MD [facility] SURGICAL RIGHT KNEE SEVERE OSTEOARTHRITIS [id number] 01/01/2015 09:52:00 01/01/2015 23:59:59 CLS Outpatient ALBARO PARADA MD [facility] PREOP RIGHT KNEE SEVERE OSTEOARTHRITIS [id number] 11/03/2014 07:51:00 11/03/2014 16:15:00 DIS Outpatient DOLORES DPM, SHERI Q [facility] SDC HAMMER TOE LT GREAT TOE [id number] 10/29/2014 10:29:00 10/29/2014 23:59:59 CLS Outpatient DOLORES DPM, SHERI Q [facility] PREOP HAMMERTOE LEFT FOOT [id number] 06/11/2014 09:17:00 06/11/2014 23:59:59 CLS Outpatient VALERIE ZAVALA [facility] RAD RIGHT FLANK PAIN FOR 3 MONTHS [id number] 05/23/2014 08:31:00 05/23/2014 23:59:59 CLS Outpatient BALTAZAR COTTER DO D [facility] CARD RUQ PAIN [id number] 04/22/2014 09:15:00 04/22/2014 23:59:59 CLS Outpatient VALERIE ZAVALA [facility] RAD MID EPIGASTRIC PAIN, RADIATING TO RT [id number] 02/26/2014 14:09:00 02/26/2014 16:55:00 DIS Emergency MIKE NICHOLSON [facility] ER RIGHT FLANK PAIN [id number] 10/23/2013 08:33:00 10/23/2013 23:59:59 CLS Outpatient SEDRICK DOBSON APRN [facility] RAD UNCONTROLLED BP [id number] 09/20/2013 13:33:00 09/20/2013 23:59:59 CLS Outpatient VALERIE ZAVALA [facility] RAD UNCONTROLLED BLOOD PRESSURE [id number] 12/28/2017 14:02:00 Document Registration [id number] 12/20/2017 13:25:00 Document Registration [id number] 10/29/2014 10:48:00 Document Registration [id number] 10/29/2014 10:48:00 Document Registration [id number] 10/29/2014 10:48:00 Document Registration [id number] 10/29/2014 10:42:00 Document Registration [id number] 06/28/2012 15:25:00 Document Registration [id number] 06/25/2012 10:52:00 Document Registration [id number] 02/20/2012 05:51:00 Document Registration [id number] 02/14/2012 11:58:00 Document Registration [id number] 12/05/2011 11:16:00 Document Registration [id number] 10/03/2011 13:46:00 Document Registration [id number] 09/18/2011 15:35:00 Document Registration [id number] 07/10/2011 13:03:00 Document Registration [id number] 07/06/2011 18:15:00 Document Registration [id number] 06/16/2011 08:58:00 Document Registration [id number] 04/26/2011 05:37:00 Document Registration [id number] 04/20/2011 09:35:00 Document Registration [id number] 02/27/2011 19:11:00 Document Registration [id number] 01/31/2011 14:13:00 Document Registration [id number] 11/07/2010 19:22:00 Document Registration [id number] 10/11/2010 14:04:00 Document Registration [id number] 09/06/2010 17:52:00 Document Registration [id number] 08/23/2010 11:02:00 Document Registration [id number] 08/18/2010 06:59:00 Document Registration [id number] 05/20/2010 10:20:00 Document Registration [id number] 10/30/2009 09:41:00 Document Registration [id number] 05/03/2016 08:06:00 Document Registration [id number] 11/28/2017 15:00:00 11/28/2017 23:59:59 [facility] Outpatient VALERIE ZAVALA APRN [facility] [id number] 11/27/2017 11:40:00 Document Registration [id number] 10/30/2017 16:40:00 Document Registration [id number] 09/20/2017 13:40:00 Document Registration [id number] 05/03/2017 11:20:00 Document Registration [id number] 04/19/2017 10:40:00 Document Registration [id number] 03/23/2017 12:20:00 Document Registration
[2018-01-13 15:00] VITALS: BP 159/81
== END 2018-01-13 15:00 | disposition home or self-care (01) ==
LOC: EDUNIT# 13:13 → ER 13:14
DX: N39.0 Urinary tract infection, site not specified (principal); I10 Essential (primary) hypertension; R10.32 Left lower quadrant pain; G89.29 Other chronic pain; J43.9 Emphysema, unspecified; K21.9 Gastro-esophageal reflux disease without esophagitis; M81.0 Age-related osteoporosis without current pathological fracture; F41.9 Anxiety disorder, unspecified; F43.10 Post-traumatic stress disorder, unspecified; F32.9 Major depressive disorder, single episode, unspecified; D64.9 Anemia, unspecified; G43.909 Migraine, unspecified, not intractable, without status migrainosus; Z87.448 Personal history of other diseases of urinary system; Z87.440 Personal history of urinary (tract) infections; Z87.19 Personal history of other diseases of the digestive system; Z82.49 Family history of ischemic heart disease and other diseases of the circulatory system; Z88.2 Allergy status to sulfonamides; Z91.048 Other nonmedicinal substance allergy status; Z88.8 Allergy status to other drugs, medicaments and biological substances; Z79.51 Long term (current) use of inhaled steroids; Z77.22 Contact with and (suspected) exposure to environmental tobacco smoke (acute) (chronic); Z87.59 Personal history of other complications of pregnancy, childbirth and the puerperium; Z90.710 Acquired absence of both cervix and uterus; Z90.89 Acquired absence of other organs; Z87.01 Personal history of pneumonia (recurrent)
CPT/HCPCS: 36415; 80053; 80306; 81000; 85025; 87077; 87088; 87186; 96361; 96365; 96375

== ENCOUNTER 2018-01-17 16:20 | Emergency (ER) | payer MEDICARE, MEDICAID ==
[~2018-01-17] VITALS: Ht 162.6 cm; Wt 58.1 kg
[~2018-01-17 16:20] MED LIST changes: +CEFU500T63 PO
--- OUTSIDE RECORDS SUMMARY | 2018-01-17 16:27 | XMS REPORT ---
Author Author [facility] Address [address] [place] [address] Care Team Providers Care Reproduction Specialist Name Role Phone NIALL SALEH Unavailable PROBLEMS Type Condition ICD9-CM Code BXQ62-DS Code Onset Dates Condition Status SNOMED Code Problem Generalized anxiety disorder F41.1 Active 27132478 Problem Hypokalemia E87.6 Active 681403905 Problem Right low back pain, with sciatica presence unspecified M54.5 Active 159220635 Problem Pain in right knee M25.561 Active 37709653 Problem Gastroesophageal reflux disease without esophagitis K21.9 Active 011787045 Problem UTI symptoms R39.9 Active 43598857 Problem Essential hypertension I10 Active 35597898 Problem Right foot pain M79.671 Active 95516857 Problem Neuropathy G62.9 Active 297696918 Problem Other emphysema J43.8 Active 45842244 Problem Anxiety F41.9 Active 30512035 Problem Opioid use disorder, moderate, dependence F11.20 Active 75301111 Problem Other chronic pain G89.29 Active 77626205 Problem Bone pain M89.8X9 Active 22201012 Problem Chronic pain G89.29 Active 62003600 Problem Back pain M54.9 Active 165380064 Problem Kidney stones N20.0 Active 30609045 Problem Panic attacks F41.0 Active 753965181 Problem Generalized abdominal pain R10.84 Active 001232448 Problem Renal calculus, right N20.0 Active 38774880 Problem Tobacco abuse Z72.0 Active 24475925 Problem Right upper quadrant abdominal pain R10.11 Active 271761664 Problem Depression, unspecified depression type F32.9 Active 83776689 Problem Weight decrease R63.4 Active 579484305 Problem Pulmonary emphysema, unspecified emphysema type J43.9 Active 17526912 Problem Post-traumatic stress disorder, chronic F43.12 Active 77771168 Problem Weight loss R63.4 Active 115996712 Problem Insomnia, unspecified type G47.00 Active 789801006 ALLERGIES Substance Reaction Event Type Date Status Sulfur rash Drug Allergy Aug, Active Remeron itching Drug Allergy Aug, Active Morphine Sulfate nausea Drug Allergy Aug, Active Demerol Unknown Drug Allergy Aug, Active Fentanyl 25 Mcg/hr Patch 72 Hr Unknown Non Drug Allergy Aug, Active ENCOUNTERS Encounter Location Date Diagnosis [place] [address] [address] 14 Dec, 2017 [place] [address] [place] [id number] [place] [address] 54943- 8979 13 Dec, 2017 [place] [address] 30043- 9441 Dec, Medicare welcome exam Z00.00 [place] [address] 34390- 7745 17 Nov, 2017 Opioid use disorder, moderate, dependence F11.20 [place] [address] [place] [id number] [place] [address] 65498- 6600 16 Nov, 2017 Pelvic pain R10.2 ; Acute pyelonephritis N10 and Essential hypertension I10 [place] [address] [place] [id number] [place] [address] 52084- 0368 28 Oct, 2017 Medicare welcome exam Z00.00 [place] [address] [place] [id number] [place] [address] 85351- 1063 18 Oct, 2017 Gross hematuria R31.0 ; Urinary tract infection without hematuria, site unspecified N39.0 and Weakness R53.1 [place] [address] [place] [id number] [place] [address] 69317- 1328 13 Oct, 2017 [place] [address] [place] [id number] [place] [address] 39593- 9907 Oct, [place] [address] [place] [id number] [place] [address] 17993- 0117 Oct, Medicare welcome exam Z00.00 [place] [address] [place] [id number] [place] [address] 38311- 3460 September, Back pain M54.9 and Right anterior knee pain M25.561 [facility] [address] [place] [id number] [place] [address] 33822- 1416 September, [facility] [address] [place] [id number] [place] [address] 17601- 0089 September, [facility] [address] [place] [id number] [place] [address] 03577- 0061 September, Essential hypertension I10 [facility] [address] [place] [id number] [place] [address] 80614- 9267 September, [facility] [address] [place] [id number] [place] [address] 58996- 0078 September, RLQ abdominal pain R10.31 ; Low back pain M54.5 and Other chronic pain G89.29 [facility] [address] [place] [id number] [place] [address] 24089- 8954 Aug, Medicare welcome exam Z00.00 [facility] [address] [place] [id number] [place] [address] 51625- 4099 Aug, [facility] [address] [place] [id number] [place] [address] 04179- 1249 Aug, Acute pyelonephritis N10 and Medicare welcome exam Z00.00 [facility] [id number] [place] [address] 71522 -2334 Aug, Dysuria R30.0 and Acute pyelonephritis N10 [facility] [id number] [place] [address] 33328- 7551 Aug, [facility] [address] [place] [id number] [place] [address] 90350- 2056 Aug, [facility] [address] [address] 0056 Aug, [facility] [address] [id number] [address]- 1096 Aug, [facility] [id number] [place] [address] 39626- 7985 Jul, [facility] [address] [place] [id number] [place] [address] 03873- 4353 Jul, Renal calculus, right N20.0 and Medicare welcome exam Z00.00 [facility] [id number] [place] [address] 04582 -6187 Jul, Dysuria R30.0 and Renal calculus, right N20.0 [facility] [address] [place] [id number] [place] [address] 98834- 7611 Jul, Medicare welcome exam Z00.00 [place] [address] [place] [id number] [place] [address] 55775- 6680 Jun, Gastroesophageal reflux disease without esophagitis K21.9 and Generalized abdominal pain R10.84 [facility] [id number] [place] [address] 76528- 6682 Jun, Medicare welcome exam Z00.00 [place] [address] [place] [id number] [place] [address] 92472- 9350 Jun, [facility] [address] [place] [id number] [place] [address] 06234- 7092 Jun, Medicare welcome exam Z00.00 and Encounter for screening mammogram for malignant neoplasm of breast Z12.31 [facility] [address] [address]- 3591 Jun, Chronic pain G89.29 [place] [address] [place] [id number] [place] [address] 15933- 2948 May, [facility] [address] [place] [id number] [place] [address] 93879- 4074 May, Pelvic pain R10.2 [place] [address] [place] [id number] [place] [address] 87639- 5671 May, Pelvic pain R10.2 [facility] [address] [place] [id number] [place] [address] 67034 -7505 May, Renal calculus, right N20.0 [place] [address] [place] [id number] [place] [address] 37460- 3912 May, Hematuria, unspecified type R31.9 and Nephrolithiasis N20.0 [facility] [place] [address] [place] [id number] [place] [address] 72403 -4652 May, Dysuria R30.0 and Nephrolithiasis N20.0 [place] [address] [place] [id number] [place] [address] 31151- 4642 May, [facility] [place] [address] [place] [id number] [place] [address] 65531 -0591 May, Abdominal pain R10.9 and Kidney stone N20.0 [place] [address] [place] [id number] [place] [address] 55090- 3063 May, [place] [address] [place] [id number] [place] [address] 76925- 8231 May, Chronic pain G89.29 and Panic attacks F41.0 [place] [address] [place] [id number] [place] [address] 74498- 7554 May, Urinary tract infection without hematuria, site unspecified N39.0 [place] [address] [place] [id number] [place] [address] 84284- 6086 Apr, Right lower quadrant abdominal pain R10.31 and Abnormal serum lipase level R74.8 [place] [address] [place] [id number] [place] [address] 03095- 2718 Apr, Recurrent urinary tract infection N39.0 [place] [address] [place] [id number] [place] [address] 59318- 9616 Apr, UTI symptoms R39.9 ; Recurrent urinary tract infection N39.0 and Pelvic pain R10.2 [place] [address] [place] [id number] [place] [address] 46857- 7961 08 Apr, 2017 Chronic pain G89.29 and Panic attacks F41.0 [place] [address] [place] [id number] [place] [address] 53521- 1486 Apr, Dysuria R30.0 [place] [address] [place] [id number] [place] [address] 29909- 3269 Apr, [place] [address] [place] [id number] [place] [address] 00609- 3936 Apr, Dysuria R30.0 and Urinary tract infection without hematuria , site unspecified N39.0 [place] [address] [place] [id number] [place] [address] 90471- 6916 Mar, UTI symptoms R39.9 [place] [address] [place] [id number] [place] [address] 35584- 2131 Mar, [place] [address] [place] [id number] [place] [address] 94976- 2425 Mar, Panic attacks F41.0 and Chronic pain G89.29 [place] [address] [place] [id number] [place] [address] 98150- 3060 Mar, [place] [address] [place] [id number] [place] [address] 26617- 0264 Mar, Dysuria R30.0 [place] [address] [place] [id number] [place] [address] 95147- 3768 Mar, Dysuria R30.0 [place] [address] [place] [id number] [place] [address] 41784- 7559 Feb, Chronic pain G89.29 ; Shortness of breath R06.02 ; Weight loss R63.4 ; Encounter for immunization Z23 ; Bone pain M89.8X9 ; Right anterior knee pain M25.561 and Cough R05 [place] [address] [place] [id number] [place] [address] 94943- 3254 Feb, Shortness of breath R06.02 [facility] [address] [place] [id number] [place] [address] 46153- 2599 Feb, [place] [address] [place] [id number] [place] [address] 25337- 6912 Feb, Panic attacks F41.0 and Chronic pain G89.29 [place] [address] 69190- 2759 Feb, [place] [address] 06267- 3178 Feb, Panic attacks F41.0 ; Shortness of breath R06.02 and Encounter for immunization Z23 [place] [address] [place] [id number] [place] [address] 26943- 8827 Jan, [place] [address] 06594- 7672 Jan, Anxiety F41.9 and Chronic pain G89.29 [place] [address] 48672- 3856 Dec, Anxiety F41.9 and Chronic pain G89.29 [place] [address] [place] [id number] [place] [address] 03556- 6364 Nov, Chronic pain G89.29 [place] [address] [place] [id number] [place] [address] 24316- 0275 Nov, Anxiety F41.9 [place] [address] 03841- 2819 Nov, Chronic pain G89.29 ; Essential hypertension I10 and Other emphysema J43.8 [place] [id number] [place] [address] 74661- 6396 Oct, Anxiety F41.9 [place] [address] [place] [id number] [place] [address] 20515- 8769 Oct, [place] [address] [place] [id number] [place] [address] 31203- 9276 Oct, Chronic pain G89.29 [facility] [address] [place] [id number] [place] [address] 52640- 2950 September, Recurrent UTI N39.0 ; Neuropathy G62.9 and Anxiety F41.9 [facility] [address] [place] [id number] [place] [address] 12699- 9981 September, [facility] [address] 55572- 7208 September, Chronic pain G89.29 [facility] [address] [place] [id number] [place] [address] 40129- 5386 September, [facility] [address] [place] [id number] [place] [address] 48792- 3215 Aug, Post-traumatic stress disorder, chronic F43.12 ; Chronic urinary tract infection N39.0 ; Gastroesophageal reflux disease without esophagitis K21.9 ; Chronic pain G89.29 ; Essential hypertension I10 and Tobacco abuse Z72.0 [facility] [address] [place] [id number] [place] [address] 31199 -1250 Aug, [facility] [address] [place] [id number] [place] [address] 60298- 6707 Aug, Chronic pain G89.29 [facility] [address] [place] [id number] [place] [address] 69410- 3305 Aug, Insomnia, unspecified type G47.00 [facility] [address] [place] [id number] [place] [address] 28265- 5227 Aug, [facility] [address] [place] [id number] [place] [address] 93366- 5745 Jul, Chronic pain G89.29 [facility] [address] [place] [id number] [place] [address] 75030- 7802 Jul, [facility] [address] 68702- 1856 Jul, [facility] [address] [address]- 4438 Jul, [facility] [id number] [place] [address] 85173- 6068 Jul, Recurrent UTI (urinary tract infection) N39.0 [facility] [id number] [place] [address] 27627- 7703 Jul, [facility] [id number] [place] [address] 68685- 3607 Jun, Chronic pain G89.29 [place] [address] [place] [id number] [place] [address] 95173- 1607 Jun, [facility] [address] [place] [id number] [place] [address] 43894- 9404 Jun, [facility] [address] [place] [id number] [place] [address] 64796- 8097 May, Chronic pain G89.29 [facility] [id number] [place] [address] 80711- 2556 May, Weight loss R63.4 and Shortness of breath R06.02 [facility] [address], [place] [address]- 1186 May, Chronic pain G89.29 ; Weight loss R63.4 and Tobacco abuse Z72.0 [place] [address], [place] [address]- 9881 May, [facility] [id number] [place] [address] 36248- 0861 May, Hypoxia R09.02 [facility] [id number] [place] [address] 94344- 6127 May, [facility] [address] [address]- 9412 May, Pulmonary emphysema, unspecified emphysema type J43.9 [facility] [address] [place] [id number] [place] [address] 11454 -4956 May, [facility] [address] [place] [id number] [place] [address] 74856- 7756 May, [facility] [address] [place] [id number] [place] [address] 29040- 1253 May, [facility] [address] [place] [id number] [place] [address] 39322- 5414 May, Chronic pain G89.29 ; Encounter for immunization Z23 ; Right anterior knee pain M25.561 and Cough R05 [place] [address] 91966- 0626 Apr, Chronic pain G89.29 [facility] [address] [place] [id number] [place] [address] 90056- 2348 Apr, [facility] [address] [place] [id number] [place] [address] 86684- 5527 Apr, Generalized anxiety disorder F41.1 and Depression, unspecified depression type F32.9 [place] [address] [place] [id number] [place] [address] 98007- 6700 Apr, Chronic pain G89.29 ; Hypokalemia E87.6 and Insomnia, unspecified type G47.00 [facility] [address] [place] [id number] [place] [address] 61800- 7978 Apr, [facility] [address] [place] [id number] [place] [address] 58485- 8820 Apr, Chronic pain G89.29 [facility] [address] [place] [id number] [place] [address] 44369- 0716 Apr, [facility] [address] [place] [id number] [place] [address] 60195- 1698 Mar, [facility] [address] [place] [id number] [place] [address] 76534- 2436 Mar, Insomnia, unspecified type G47.00 [facility] [address], [place] [address]- 1437 Mar, Chronic pain G89.29 [facility] [address], [place] [address]- 3127 Mar, [facility] [address], [place] [address]- 6258 Feb, [facility] [id number] [place] [address] 02120- 4553 Feb, [facility] [id number] [place] [address] 90552- 4471 Feb, [facility] [address] [place] [id number] [place] [address] 71634- 3571 Feb, [facility] [address] [place] [id number] [place] [address] 32518- 9056 Feb, [facility] [address], [place] [address]- 1802 29 Jan, 2016 [facility] [id number] [place] [address] 31934- 9248 26 Jan, 2016 [facility] [address] [address]- 6958 20 Jan, 2016 [facility] [address], [place] [address]- 4389 13 Jan, 2015 [facility] [address], [place] [address]- 3350 12 Jan, 2015 [facility] [id number] [place] [address] 02254- 1929 07 Sep, 2016 Chronic pain G89.29 [facility] [address], [place] [address]- 2540 01 Sep, 2016 Chronic pain G89.29 and Fibromyalgia M79.7 [facility] [address] [place] [id number] [place] [address] 63575- 8323 Dec, Depression, unspecified depression type F32.9 and Generalized anxiety disorder 300.02 [facility] [address] [place] [id number] [place] [address] 07245- 4751 Dec, Dysthymia F34.1 ; Insomnia, unspecified type G47.00 and Chronic pain G89.29 [facility] [address] [id number] [place] [address] 98498- 2039 Dec, Chronic pain G89.29 [facility] [address] [id number] [place] [address] 08765- 8248 Dec, Insomnia, unspecified type G47.00 [facility] [address] [id number] [place] [address] 90323- 3157 Dec, Fibromyalgia M79.7 and Chronic pain G89.29 [facility] [address] [id number] [place] [address] 50613- 9373 Dec, [facility] [address] [id number] [place] [address] 03423- 4622 Dec, [facility] [address] [id number] [place] [address] 14054- 6043 Dec, [facility] [address] [id number] [place] [address] 33629- 0499 Dec, [facility] [address] [id number] [place] [address] 29619- 3802 Dec, Chronic pain G89.29 [facility] [address] [id number] [place] [address] 12009- 3491 Dec, [facility] [address] [id number] [place] [address] 80025- 4954 Dec, [facility] [address] [id number] [place] [address] 76924- 5927 Dec, [facility] [id number] [place] [address] 64948- 9988 Dec, Chronic pain G89.29 and Dysthymia F34.1 [facility] [id number] [place] [address] 34854- 0929 Nov, [place] [address] [address]- [address] Nov, Hypokalemia E87.6 and Chronic pain G89.29 [place] [address] 58961- 9759 Nov, Back pain M54.9 and Pain in right knee M25.561 [place] [address] 57729- 0780 Nov, [place] [address] 87695- 4102 Nov, Chronic pain G89.29 [place] [address] 68181- 0935 Nov, Chronic pain G89.29 ; Weight loss R63.4 ; Bone pain M89.8X9 and Insomnia, unspecified type G47.00 [place] [address] 15204- 3735 Nov, Chronic pain G89.29 [facility] [id number] [place] [address] 51407- 6454 Nov, Chronic pain G89.29 [facility] [id number] [place] [address] 52425- 1563 Oct, Chronic pain G89.29 [facility] [id number] [place] [address] 37561- 6151 Oct, UTI symptoms R39.9 [place] [address] 00461- 9151 Oct, Chronic pain G89.29 [facility] [id number] [place] [address] 90672- 7765 Oct, Chronic pain G89.29 [facility] [address] [address] Oct, Chronic pain G89.29 [facility] [id number] [place] [address] 15008- 3625 Oct, Right upper quadrant abdominal pain R10.11 [facility] [id number] [place] [address] 54319- 8119 Oct, Chronic pain G89.29 [facility] [id number] [place] [address] 26765- 2433 Oct, [facility] [id number] [place] [address] 22213- 0369 September, Chronic pain G89.29 [facility] [id number] [address] September, Dysuria R30.0 and Urinary tract infection without hematuria , site unspecified N39.0 [facility] [id number] [place] [address] 97704- 5008 September, [facility] [id number] [place] [address] 41831- 4358 September, Dysuria R30.0 [facility] [id number] [address]98 September, Chronic pain G89.29 [facility] [id number] [place] [address] 61706- 6201 September, Chronic pain G89.29 and Essential hypertension I10 [facility] [id number] [address] September, [facility] [id number] [place] [address] 78315- 8879 September, [facility] [id number] [address]- 6487 September, [facility] [id number] [place] [address] 65533- 2944 Aug, UTI symptoms R39.9 [facility] [id number] [place] [address] 66377- 6180 Aug, Dysuria R30.0 [facility] [id number] [place] [address] 23030- 7458 Aug, [facility] [id number] [place] [address] 59125- 3221 Aug, [facility] [id number] [place] [address] 68282- 0223 Aug, [facility] [id number] [place] [address] 34120- 9550 Aug, Chronic pain G89.29 [facility] [id number] [place] [address] 73476- 4166 Aug, Dysthymia F34.1 [facility] [id number] [place] [address] 13933- 8047 Aug, Conjunctivitis, unspecified conjunctivitis type, unspecified laterality H10.9 [facility] [id number] [place] [address] 07511- 7606 Jul, Chronic pain G89.29 ; Back pain M54.9 ; Tobacco abuse Z72.0 and Weight decrease R63.4 [facility] [id number] [place] [address] 39234- 1678 Jul, [facility] [id number] [place] [address] 30404- 7978 Jul, [facility] [id number] [place] [address] 00282- 2843 24 Jul, 2015 Chronic pain G89.29 [facility] [id number] [place] [address] 99603- 5913 Jul, [facility] [id number] [place] [address] 43342- 6061 Jul, [facility] [address] [address] 6313 18 Jul, 2015 [facility] [address] 5866 Jul, [facility] [id number] [place] [address] 44651- 9601 Jul, Chronic pain G89.29 [facility] [id number] [place] [address] 245822- 4135 16 Jul, 2015 Chronic pain G89.29 [facility] [id number] [place] [address] 07276- 5958 15 Jul, 2015 [facility] [id number] [place] [address] 22617- 5395 Jul, [facility] [id number] [place] [address] 05473- 6725 Jul, [facility] [id number] [place] [address] 74765- 2068 Jul, [facility] [id number] [place] [address] 95908- 8708 Jun, [facility] [address] [address]- 3272 Jun, Depression, unspecified depression type F32.9 [facility] [id number] [place] [address] 58100- 3850 Jun, Pain in right knee M25.561 [facility] [id number] [place] [address] 21990- 0721 24 Jun, 2015 Chronic pain G89.29 ; Back pain M54.9 ; Bone pain M89.8X9 and Weight loss R63.4 [facility] [address] [address]- 3302 Jun, [facility] [id number] [place] [address] 80525- 1714 May, [facility] [id number] [place] [address] 27362- 4631 May, UTI symptoms R39.9 ; Pain in right knee M25.561 ; Right low back pain, with sciatica presence unspecified M54.5 ; Right foot pain M79.671 ; Hypokalemia E87.6 and Screening, lipid Z13.220 [facility] [id number] [place] [address] 23471- 4421 May, [facility] [id number] [place] [address] 82583- 1712 May, [facility] [id number] [place] [address] 72787- 7748 Mar, [address] [id number] [place] [address] 61061- 8860 Mar, [facility] [id number] [place] [address] 27246- 1697 Mar, Hypokalemia E87.6 [address] [id number] [place] [address] 13041- 1452 Mar, Pain in right leg M79.604 ; Encounter for immunization Z23 ; Pain in right knee M25.561 and Hypokalemia E87.6 [address] [id number] [place] [address] 69097- 7427 Jan, [address] [id number] [place] [address] 51178- 2545 Jan, [facility] [id number] [place] [address] 85130- 2305 Jan, Abdominal pain, generalized 789.07 [address] [id number] [place] [address] 60442- 7264 Jan, Abdominal pain, generalized 789.07 [facility] [id number] [address]- 8211 Dec, [facility] [address] [address]- 8713 Dec, [facility] [address], [place] [address]- 4616 Dec, [facility] [id number] [place] [address] 69429- 6511 Nov, Hallux valgus 735.0 and Hammertoe 735.4 [facility] [id number] [place] [address] 67667- 5954 Nov, [facility] [id number] [place] [address] 46878- 9085 Nov, Hallux valgus 735.0 and Hammer toe 735.4 [facility] [id number] [place] [address] 95375- 4036 Oct, [facility] [address], [place] [address]- 3793 Oct, [facility] [id number] [place] [address] 64086- 0785 Oct, Pre-op evaluation V72.84 [facility] [address] [address]- 8031 Oct, [facility] [address] [address]- 1765 Oct, [facility] [id number] [address]- 3497 September, [facility] [id number] [place] [address] 20970- 2002 September, [facility] [id number] [address]- 9130 September, Hallux valgus (acquired) 735.0 and Other hammer toe ( acquired) 735.4 [facility] [address] [id number] [place] [address]- 2921 14 Aug, 2014 [facility] [place] [facility] [address] [id number] [place] [address]- 6306 Aug, [facility] [place] [facility] [address] [id number] [place] [address]- 7044 Jul, [facility] [place] [facility] [address] [id number] [place] [address]- 7756 Jul, [facility] [place] [facility] [address] [id number] [place] [address]- 7868 Jul, [facility] [place] [facility] [address] [id number] [place] [address]- 3733 Jul, [facility] [place] [facility] [address] [id number] [place] [address]- 3076 Jul, [facility] [place] [facility] [address] [id number] [place] [address]- 1310 Jul, [facility] [place] [facility] [address] [id number] [place] [address]- 3303 Jul, [facility] [place] [facility] [address] [id number] [place] [address]- 4627 Jul, [facility] [place] [facility] [address] [id number] [place] [address]- 1945 Jun, [facility] [place] [facility] [address] [id number] [place] [address]- 7908 Jun, [facility] [place] [facility] [address] [id number] [place] [address]- 0644 Jun, [facility] [place] [facility] [address] [id number] [place] [address]- 4750 Jun, [facility] [place] [facility] [address] [id number] [place] [address]- 7871 Jun, [facility] [place] [facility] [address] [id number] [place] [address]- 8034 Jun, [facility] [place] [facility] [address] [id number] [place] [address]- 5660 Jun, [facility] [place] [facility] [address] [id number] [place] [address]- 8606 Jun, [facility] [place] [facility] [address] [id number] [place] [address]- 0233 Jun, [facility] [place] [facility] [address] [id number] [place] [address]- 1165 Jun, [facility] [place] [facility] [address] [id number] [place] [address]- 0690 May, [facility] [place] [facility] [address] [id number] [place] [address]- 9916 May, [facility] [place] [facility] [address] [id number] [place] [address]- 5338 May, [facility] [place] [facility] [address] [id number] [place] [address]- 9127 May, [facility] [place] [facility] [address] [id number] [place] [address]- 4746 May, [facility] [place] [facility] [address] [id number] [place] [address]- 7801 May, [facility] [place] [facility] [address] [id number] [place] [address]- 1105 May, [facility] [place] [facility] [address] [id number] [place] [address]- 1816 May, [facility] [place] [facility] [address] [id number] [place] [address]- 9197 May, [facility] [place] [facility] [address] [id number] [place] [address]- 0597 May, [facility] [place] [facility] [address] [id number] [place] [address]- 1580 May, [facility] [address] [id number] [place] [address]- 8937 May, [facility] [place] [facility] [address] [id number] [place] [address]- 9766 May, [facility] [place] [facility] [address] [id number] [place] [address]- 0438 May, [facility] [place] [facility] [address] [id number] [place] [address]- 6947 May, [facility] [place] [facility] [address] [id number] [place] [address]- 8726 May, [facility] [place] [facility] [address] [id number] [place] [address]- 9917 May, [facility] [place] [facility] [address] [id number] [place] [address]- 2459 May, [facility] [place] [facility] [address] [id number] [place] [address]- 9985 Apr, [facility] [place] [facility] [address] [id number] [place] [address]- 1460 Apr, [facility] [place] [facility] [address] [id number] [place] [address]- 3345 Apr, [facility] [place] [facility] [address] [id number] [place] [address]- 2593 Apr, [facility] [place] [facility] [address] [id number], [place] [address]- 1092 Apr, [facility] [place] [facility] [address] [id number] [place] [address]- 5522 Apr, [facility] [place] [facility] [address] [id number] [place] [address]- 5966 Apr, [facility] [place] [facility] [address] [id number], [place] [address]- 4008 Apr, [facility] [place] [facility] [address] [id number], [place] [address]- 2902 Apr, [facility] [place] [facility] [address] [id number] [place] [address]- 2117 Mar, [facility] [place] [facility] [address] [id number] [place] [address]- 7083 Mar, [facility] [place] [facility] [address] [id number] [place] [address]- 7349 Mar, [facility] [place] [facility] [address] [id number] [place] [address]- 5723 Mar, [facility] [place] [facility] [address] [id number] [place] [address]- 3504 Mar, [facility] [place] [facility] [address] [id number] [place] [address]- 9477 Feb, [facility] [place] [facility] [address] [facility] [id number] [place] [address]- 9948 Feb, [facility] [place] [facility] [address] [id number] [place] [address]- 1612 Feb, [facility] [place] [facility] [address] [facility] [id number] [place] [address]- 2172 Feb, [facility] [place] [facility] [address] [facility] [id number], [place] [address]- 1738 Feb, [facility] [place] [facility] [address] [facility] [id number], [place] [address]- 4753 Feb, [facility] [place] [facility] [address] [id number], [place] [address]- 8255 Feb, [facility] [place] [facility] [address] [id number], [place] [address]- 2943 Feb, [facility] [place] [facility] [address] [facility] [id number], [place] [address]- 1220 Feb, [facility] [place] [facility] [address] [facility] [id number], [place] [address]- 4151 Feb, [facility] [place] [facility] [address] [id number] [place] [address]- 4571 08 Feb, 2013 [facility] [place] [facility] [address] [id number] [place] [address]- 4810 08 Feb, 2014 [facility] [place] [facility] [address] [id number] [place] 4816 Feb, 2013 [facility] [place] [facility] [address] [id number] [place] [address]- 5360 Feb, 2013 [facility] [place] [facility] [address] [id number] [place] [address]- 2934 Feb, 2013 [facility] [place] [facility] [address] [id number] [place] [address]- 2077 Feb, [facility] [place] [facility] [address] [id number] [place] [address]- 7933 23 Jan, 2013 [facility] [place] [facility] [address] [id number] [place] [address]- 6992 23 Jan, 2013 [facility] [place] [facility] [address] [id number] [place] [address]- 6543 20 Jan, 2013 [facility] [place] [facility] [address] [id number] [place] [address]- 3956 19 Jan, 2013 [facility] [place] [facility] [address] [id number] [place] [address]- 9851 11 Jan, 2013 [facility] [place] [facility] [address] [id number] [place] [address]- 7334 11 Jan, 2013 [facility] [place] [facility] [address] [id number] [place] [address]- 8016 03 Jan, 2013 [facility] [place] [facility] [address] [id number] [place] [address]- 0286 Jan, 2013 [facility] [place] [facility] [address] [id number] [place] [address]- 2756 Dec, [facility] [place] [facility] [address] [id number] [place] [address]- 0368 Dec, [facility] [place] [facility] [address] [id number] [place] [address]- 8278 Nov, [facility] [place] [facility] [address] [id number] [place] [address]- 5415 Nov, [facility] [place] [facility] [address] [id number] [place] [address]- 9141 Nov, [facility] [place] [facility] [address] [id number] [place] [address]- 9603 Nov, [facility] [place] [facility] [address] [id number] [place] [address]- 3048 Nov, [facility] [place] [facility] [address] [id number] [place] [address]- 5292 Nov, [facility] [place] [facility] [address] [id number] [place] [address]- 5647 Nov, [facility] [place] [facility] [address] [id number] [place] [address]- 0235 Nov, [facility] [place] [facility] [address] [id number] [place] [address]- 7618 Nov, [facility] [place] [facility] [address] [id number] [place] [address]- 4964 Oct, [facility] [place] [facility] [address] [id number] [place] [address]- 4935 Oct, [facility] [place] [facility] [address] [id number] [place] [address]- 7464 Oct, [facility] [place] [facility] [address] [id number] [place] [address]- 5203 Oct, [facility] [place] [facility] [address] [id number] [place] [address]- 4399 Oct, [facility] [place] [facility] [address] [id number] [place] [address]- 1836 Oct, [facility] [place] [facility] [address] [id number] [place] [address]- 7386 September, [facility] [address] [id number] [place] 8423 September, [facility] [address] [id number] [place] 6044 September, [facility] [address] [id number] [place] [address]- 3157 September, [facility] [place] [facility] [address] [id number] [place] [address]- 7009 September, [facility] [address] [id number] [place] 1640 September, [facility] [address] [id number] [place] [address]- 9201 September, [facility] [address] [id number] [place] [address]- 0921 September, [facility] [address] [id number] [place] [address]- 1364 September, [facility] [address] [id number] [place] [address]- 8750 September, [facility] [address] [id number] [place] [address]- 5919 September, [facility] [address] [id number] [place] [address]- 1503 September, [facility] [place] [facility] [address] [id number] [place] [address]- 3076 September, [facility] [place] [facility] [address] [id number] [place] [address]- 9392 September, [facility] [place] [facility] [address] [id number] [place] [address]- 5138 September, [facility] [place] [facility] [address] [id number] [place] [address]- 8817 September, [facility] [place] [facility] [address] [id number] [place] [address]- 4527 September, [facility] [place] [facility] [address] [id number] [place] [address]- 7650 September, [facility] [place] [facility] [address] [id number] [place] [address]- 0852 September, [facility] [place] [facility] [address] [id number] [place] [address]- 9460 September, [facility] [place] [facility] [address] [id number] [place] [address]- 9282 Aug, [facility] [place] [facility] [address] [id number] [place] [address]- 5105 Aug, [facility] [place] [facility] [address] [id number] [place] [address]- 4593 Aug, [facility] [place] [facility] [address] [id number] [place] [address]- 3204 Aug, [facility] [place] [facility] [address] [id number] [place] [address]- 4910 Aug, [facility] [place] [facility] [address] [id number] [place] [address]- 5484 Aug, [facility] [place] [facility] [address] [id number] [place] [address]- 4361 Aug, [facility] [place] [facility] [address] [id number] [place] [address]- 7724 16 Aug, 2013 [facility] [place] [facility] [address] [id number] [place] [address]- [address] 15 Aug, 2013 [facility] [place] [facility] [address] [id number] [place] [address] 15 Aug, 2013 [facility] [place] [facility] [address] [id number] [place] [address] 14 Aug, 2013 [facility] [place] [facility] [address] [id number] [place] [address]6 Aug, [facility] [place] [facility] [address] [id number] [place] [address]145 Aug, [facility] [place] [facility] [address] [id number] [place] [address] Aug, [facility] [place] [facility] [address] [id number] [place] [address] Aug, [facility] [place] [facility] [address] [id number] [place] [address] Jul, [facility] [place] [facility] [address] [id number] [place] [address] Jul, [facility] [place] [facility] [address] [id number] [place] [address]100 Jul, [facility] [place] [facility] [address] [id number] [place] [address]- [address] Jul, [facility] [place] [facility] [address] [id number] [place] [address] 2604 Jul, [facility] [place] [facility] [address] [id number] [place] [address]- 94[address] Jul, [facility] [place] [facility] [address] [id number] [place] [address]- [address] Jul, [facility] [place] [facility] [address] [id number] [place] [address]- [address]484 Jul, [facility] [place] [facility] [address] [id number] [place] [address] Jul, [facility] [place] [facility] [address] [id number] [place] [address]- 35[address] Jul, [facility] [place] [facility] [address] [id number] [place] [address] Jul, [facility] [place] [facility] [address] [id number] [place] [address]- [address] Jul, [facility] [place] [facility] [address] [id number] [place] [address]- [address] Jul, [facility] [place] [facility] [address] [id number] [place] [address]- [address] Jul, [facility] [place] [facility] [address] [id number] [place] [address]- [address] Jul, [facility] [place] [facility] [address] [id number] [place] [address]- [address] Jun, [facility] [place] [facility] [address] [id number] [place] [address]- [address] Jun, [facility] [place] [facility] [address] [id number] [place] [address]136 Jun, [facility] [place] [facility] [address] [id number] [place] [address]- [address] Jun, [facility] [place] [facility] [address] [id number] [place] [address]- 4625 Jun, [facility] [place] [facility] [address] [id number] [place] [address]- [address]298 Jun, [facility] [place] [facility] [address] [id number] [place] [address]- 9248 May, [facility] [place] [facility] [address] [id number] [place] [address]- 89[address] May, [facility] [place] [facility] [address] [id number] [place] [address]- 2470 May, [facility] [place] [facility] [address] [id number] [place] [address]- 7874 May, [facility] [place] [facility] [address] [id number] [place] [address]- 4814 May, [facility] [place] [facility] [address] [id number] [place] [address]- 2634 May, [facility] [place] [facility] [address] [id number] [place] [address]- 365[address] May, [facility] [address] [id number] [place] [address]- 6718 May, [facility] [place] [facility] [address] [id number] [place] [address] May, [facility] [place] [facility] [address] [id number] [place] [address]- 7079 May, [facility] [place] [facility] [address] [id number] [place] [address]- 8899 May, [facility] [place] [facility] [address] [id number] [place] [address]- 1255 May, [facility] [place] [facility] [address] [id number] [place] [address]- 5[address] May, [facility] [place] [facility] [address] [id number] [place] [address]- [address]338 May, [facility] [place] [facility] [address] [id number] [place] [address]- 8985 May, [facility] [place] [facility] [address] [id number] [place] [address]- 4232 Apr, [facility] [place] [facility] [address] [id number] [place] [address]- 4158 Apr, [facility] [place] [facility] [address] [id number], [place] [address] Apr, [facility] [place] [facility] [address] [id number], [place] [address] Apr, [facility] [place] [facility] [address] [id number] [place] [address]- 9502 Apr, [facility] [place] [facility] [address] [id number] [place] [address]- 6600 Apr, [facility] [place] [facility] [address] [id number] [place] [address]- 2698 Apr, [facility] [place] [facility] [address] [id number] [place] [address]- 2668 Apr, [facility] [address] [id number] [place] [address]- [address]249 Apr, [facility] [place] [facility] [address] [id number] [place] [address]- [address]202 Apr, [facility] [address] [id number] [place] [address]- 5316 Mar, [facility] [place] [facility] [address] [id number] [place] [address]- 0548 Mar, [facility] [address] [id number] [place] [address]- 2969 Mar, [facility] [place] [facility] [address] [id number] [place] [address]- 7547 Mar, [facility] [address] [id number] [place] [address]- 8933 Mar, [facility] [address] [id number] [place] [address]- 1635 Mar, [facility] [place] [facility] [address] [id number] [place] [address]- 2412 Mar, [facility] [address] [id number] [place] [address]- 7916 Mar, [facility] [place] [facility] [address] [id number] [place] [address]- 9366 Mar, [facility] [place] [facility] [address] [id number] [place] [address]- 0900 Mar, [facility] [place] [facility] [address] [id number] [place] [address]- 4925 Mar, [facility] [place] [facility] [address] [id number] [place] [address]- 0221 Mar, [facility] [place] [facility] [address] [id number] [place] [address]- 1258 Mar, [facility] [place] [facility] [address] [id number] [place] [address]- 0447 Mar, [facility] [place] [facility] [address] [id number] [place] [address] Mar, [facility] [place] [facility] [address] [id number] [place] [address] 1184 Mar, [facility] [place] [facility] [address] [id number] [place] [address] 9269 Mar, [facility] [place] [facility] [address] [id number] [place] [address] 8[address] 14 Mar, 2013 [facility] [place] [facility] [address] [id number] [place] [address] 284[address] Mar, [facility] [place] [facility] [address] [id number] [place] [address] 0949 Mar, [facility] [place] [facility] [address] [id number] [place] [address]- 0546 Mar, [facility] [place] [facility] [address] [id number] [place] [address] 6037 Mar, [facility] [place] [facility] [address] [id number] [place] [address]143 Mar, [facility] [place] [facility] [address] [id number] [place] [address] 8616 18 Feb, 2013 [facility] [place] [facility] [address] [id number], [place] [address] 18 Feb, 2013 [facility] [place] [facility] [address] [id number] [place] [address]- 8179 16 Feb, 2013 [facility] [place] [facility] [address] [id number] [place] [address]- 1622 16 Feb, 2013 [facility] [place] [facility] [address] [id number], [place] [address] 4740 15 Feb, 2013 [facility] [place] [facility] [address] [id number], [place] [address] Feb, [facility] [place] [facility] [address] [id number] [place] [address] 2496 Feb, [facility] [place] [facility] [address] [id number] [place] [address]- 2155 Feb, [facility] [place] [facility] [address] [id number] [place] [address]- 0128 Feb, [facility] [place] [facility] [address] [id number] [place] [address]- 3362 Feb, [facility] [place] [facility] [address] [id number] [place] [address] 8656 30 Jan, 2013 [facility] [place] [facility] [address] [id number] [place] [address]- 1703 26 Jan, 2013 [facility] [place] [facility] [address] [id number] [place] [address]- 4312 24 Jan, 2013 [facility] [place] [facility] [address] [id number] [place] [address]- 2695 23 Jan, 2013 [facility] [place] [facility] [address] [id number] [place] [address]- 6121 17 Jan, 2013 [facility] [place] [facility] [address] [id number] [place] [address]- 8347 28 Dec, 2012 [facility] [place] [facility] [address] [id number] [place] [address]- 9431 Dec, [facility] [place] [facility] [address] [id number] [place] [address]- 3573 16 Dec, 2012 [facility] [place] [facility] [address] [id number] [place] [address]- 9272 15 Dec, 2012 [facility] [place] [facility] [address] [id number] [place] [address] 14 Dec, 2012 [facility] [place] [facility] [address] [id number] [place] [address]- 0031 Dec, [facility] [place] [facility] [address] [id number] [place] [address]- 2546 Dec, [facility] [address] [id number] [place] [address]- 2546 Nov, [facility] [address] [id number] [place] [address]- 2546 Nov, [facility] [address] [id number] [place] [address]- 2546 Nov, [facility] [address] [id number] [place] [address]- 2546 Nov, [facility] [address] [id number] [place] [address]- 2546 Nov, [facility] [address] [id number] [place] [address]- 2546 Oct, [facility] [address] [id number] [place] [address]- 2546 Oct, [facility] [address] [id number] [place] [address]- 2546 Oct, [facility] [address] [id number] [place] [address]- 2546 September, [facility] [address] [id number] [place] [address]- 2546 September, [facility] [address] [id number] [place] [address]- 2546 September, [facility] [address] [id number] [place] [address]- 2546 September, [facility] [address] [id number] [place] [address]- 2546 September, [facility] [address] [id number] [place] [address]- 2546 September, [facility] [address] [id number] [place] [address]- 5964 September, [facility] [address] [id number] [place] [address]- 8314 30 Aug, 2012 [facility] [place] [facility] [address] [id number] [place] [address]- 9307 23 Aug, 2012 [facility] [place] [facility] [address] [id number] [place] [address]- 7926 11 Aug, 2012 [facility] [place] [facility] [address] [id number] [place] [address]- 0791 29 Jul, 2012 [facility] [place] [facility] [address] [id number] [place] [address]- 7630 27 Jul, 2012 [facility] [place] [facility] [address] [id number] [place] [address]- 9673 26 Jul, 2012 [facility] [place] [facility] [address] [id number] [place] [address]- 2841 Jul, [facility] [place] [facility] [address] [id number] [place] [address]- 7405 18 Jul, 2012 [facility] [place] [facility] [address] [id number] [place] [address]- 6131 18 Jul, 2012 [facility] [place] [facility] [address] [id number] [place] [address]- 1988 13 Jul, 2012 [facility] [place] [facility] [address] [id number] [place] [address]- 0089 28 Jun, 2012 [facility] [place] [facility] [address] [id number] [place] [address]- 5150 Jun, [facility] [place] [facility] [address] [id number] [place] [address]- 2241 Jun, [facility] [place] [facility] [address] [id number] [place] [address]- 9156 20 Jun, 2012 [facility] [place] [facility] [address] [id number] [place] [address]- 4101 15 Jun, 2012 [facility] [place] [facility] [address] [id number] [place] [address]- 8506 15 Jun, 2012 [facility] [address] [id number] [place] [address]- 6906 13 Jun, 2012 [facility] [place] [facility] [address] [id number] [place] [address]- 2546 12 Jun, 2012 [facility] [address] [id number] [place] [address]- 2546 Jun, [facility] [place] [facility] [address] [id number] [place] [address]- 2546 Jun, [facility] [address] [id number] [place] [address]- 5516 May, [facility] [address] [id number] [place] [address]- 9523 May, [facility] [address] [id number] [place] [address]- 0489 May, [facility] [address] [id number] [place] [address]- 2313 May, [facility] [address] [id number] [place] [address]- 3883 May, [facility] [address] [facility] [id number] [place] [address]- 3925 May, [facility] [address] [id number] [place] [address]- 4343 Apr, [facility] [address] [id number] [place] [address]- 2546 Apr, [facility] [place] [facility] [address] [id number] [place] [address] 2546 Apr, [facility] [place] [facility] [address] [id number] [place] [address]- 2546 Apr, [facility] [address] [id number] [place] [address]- 0111 Apr, [facility] [place] [facility] [address] [id number] [place] [address]- 1444 Apr, [facility] [place] [facility] [address] [id number] [place] [address]- 9015 Apr, [facility] [place] [facility] [address] [id number] [place] [address]- 2991 Mar, [facility] [place] [facility] [address] [id number] [place] [address]- 0206 Mar, [facility] [place] [facility] [address] [id number] [place] [address]- 2833 Mar, [facility] [place] [facility] [address] [id number] [place] [address]- 2678 Mar, [facility] [place] [facility] [address] [id number] [place] [address]- 4375 Mar, [facility] [place] [facility] [address] [id number] [place] [address]- 7894 Mar, [facility] [place] [facility] [address] [id number] [place] [address]- 6119 Mar, [facility] [place] [facility] [address] [id number], [place] [address]- 8896 16 Mar, 2012 [facility] [place] [facility] [address] [id number], [place] [address]- 2365 16 Mar, 2012 [facility] [place] [facility] [address] [id number], [place] [address]- 8991 Mar, [facility] [place] [facility] [address] [id number] [place] [address]- 4837 16 Mar, 2012 [facility] [place] [facility] [address] [id number], [place] [address]- 3489 Mar, [facility] [place] [facility] [address] [id number], [place] [address]- 5938 Mar, [facility] [place] [facility] [address] [id number] [place] [address]- 4531 Mar, [facility] [place] [facility] [address] [id number] [place] [address]- 8074 Mar, [facility] [place] [facility] [address] [id number] [place] [address]- 7826 Mar, [facility] [place] [facility] [address] [id number] [place] [address]- 5806 Mar, [facility] [place] [facility] [address] [id number] [place] [address]- 5201 Feb, [facility] [place] [facility] [address] [id number] [place] [address]13 Feb, [facility] [place] [facility] [address] [id number] [place] [address]- 7470 Feb, [facility] [place] [facility] [address] [id number] [place] [address]- 6818 Feb, [facility] [place] [facility] [address] [id number] [place] [address]- 9419 Feb, [facility] [place] [facility] [address] [id number] [place] [address]- 4214 Feb, [facility] [place] [facility] [address] [facility] [id number] [place] [address]- 0632 Feb, [facility] [place] [facility] [address] [id number] [place] [address]- 3164 Feb, [facility] [place] [facility] [address] [id number], [place] [address]- 8894 Feb, [facility] [place] [facility] [address] [id number] [place] [address]- 5448 Feb, [facility] [place] [facility] [address] [facility] [id number] [place] [address]- 4447 Feb, [facility] [place] [facility] [address] [id number], [place] [address]- 3097 Jan, [facility] [place] [facility] [address] [id number] [place] [address]- 4296 25 Jan, 2012 [facility] [place] [facility] [address] [id number] [place] [address]- 7776 13 Jan, 2012 [facility] [place] [facility] [address] [id number] [place] [address]- 9213 12 Jan, 2012 [facility] [place] [facility] [address] [id number] [place] [address]- 6075 07 Jan, 2012 [facility] [place] [facility] [address] [id number] [place] [address]- 9655 31 Dec, 2011 [facility] [place] [facility] [address] [id number] [place] [address]- 2341 24 Dec, 2011 [facility] [place] [facility] [address] [id number] [place] [address]- 5463 Dec, [facility] [place] [facility] [address] [id number] [place] [address]- 2361 Dec, [facility] [place] [facility] [address] [id number] [place] [address]- 8929 16 Dec, 2011 [facility] [place] [facility] [address] [id number] [place] [address]- 0842 Dec, [facility] [place] [facility] [address] [id number] [place] [address]- 3489 Dec, [facility] [place] [facility] [address] [id number] [place] [address]- 8534 Dec, [facility] [place] [facility] [address] [id number] [place] [address]- 3877 30 Nov, 2011 [facility] [place] [facility] [address] [id number] [place] [address]- 1750 Nov, [facility] [place] [facility] [address] [id number] [place] [address]- 1204 Nov, [facility] [place] [facility] [address] [id number] [place] [address]- 7996 Nov, [facility] [address] [id number] [place] [address]- 9299 Nov, [facility] [place] [facility] [address] [id number] [place] [address]- 2186 Oct, [facility] [place] [facility] [address] [id number] [place] [address]- 7386 Oct, [facility] [place] [facility] [address] [id number] [place] [address]- 6825 September, [facility] [address] [id number] [place] [address]- 8608 September, [facility] [address] [id number] [place] [address]- 1856 September, [facility] [address] [id number] [place] [address]- 1216 September, [facility] [place] [facility] [address] [id number] [place] [address]- 9673 September, [facility] [address] [id number] [place] [address]- 8175 September, [facility] [place] [facility] [address] [id number] [place] [address]- 8976 September, [facility] [place] [facility] [address] [id number] [place] [address]- 3946 September, [facility] [place] [facility] [address] [id number] [place] [address]- 6436 September, [facility] [place] [facility] [address] [id number] [place] [address]- 2356 September, [facility] [place] [facility] [address] [id number] [place] [address]- 9566 September, [facility] [place] [facility] [address] [id number] [place] [address]- 2846 September, [facility] [place] [facility] [address] [id number] [place] [address]- 4256 September, [facility] [address] [id number] [place] [address]- 1696 September, [facility] [address] [id number] [place] [address]- 4976 24 Aug, 2011 [facility] [address] [id number] [place] [address]- 7134 20 Aug, 2011 [facility] [address] [id number] [place] [address]- 9908 13 Aug, 2011 [facility] [address] [id number] [place] [address]- 9549 11 Aug, 2011 [facility] [address] [id number] [place] [address]- 2706 23 Jul, 2011 [facility] [id number] [place] [address]- 8809 13 Jul, 2011 [facility] [address] [id number] [place] [place] [address]- 1127 13 Jul, 2011 [facility] [id number] [place] [place] [address]- 6152 28 Jun, [address] [facility] [address] [id number] [place] [id number] 26 Jun, 2011 [facility] [id number] [place] [place] [address]- 6986 13 Jun, 2011 [facility] [address] [id number], [place] [address]- 6856 10 Jun, 2011 [facility] [address] [id number] [place] [place] [address]- 4326 07 Jun, 2011 [facility] [address] [facility] [id number], [place] [address]- 7196 07 Jun, 2011 [facility] [address] [id number] [place] [place] [address]- 2666 03 Jun, 2011 [facility] [address] [id number] [place] [address]- 2469 02 Jun, 2011 [facility] [address] [id number] [place] [address]- 2959 May, [facility] [address] [id number] [place] [address]- 9817 May, [facility] [address] [id number] [place] [address]- 3752 May, [facility] [address] [id number] [place] [address]- 1238 May, [facility] [address] [id number] [place] [address]- 8784 May, [facility] [address] [id number] [place] [address]- 5225 May, [facility] [address] [id number] [place] [address]- 7363 May, [facility] [address] [id number] [place] [address]- 2434 May, [facility] [address] [id number] [place] [address]- 1618 May, [facility] [address] [id number] [place] [address]- 6302 May, [facility] [place] [facility] [address] [id number], [place] [address]- 7228 17 May, 2011 [facility] [place] [facility] [address] [id number] [place] [address]- 9543 13 May, 2011 [facility] [place] [facility] [address] [id number] [place] [address]- 7088 May, [facility] [place] [facility] [address] [id number] [place] [address]- 6449 06 May, 2011 [facility] [place] [facility] [address] [id number] [place] [address]- 2464 30 Apr, 2011 [facility] [place] [facility] [address] [id number] [place] [address]- 5646 16 Apr, 2011 [facility] [place] [facility] [address] [id number] [place] 1846 05 Apr, 2011 [facility] [place] [facility] [address] [id number] [place] [address]- 8276 17 Mar, 2011 [facility] [place] [facility] [address] [id number] [place] [address]- 1685 Mar, [facility] [place] [facility] [address] [id number] [place] [address]- 9760 31 Feb, 2011 [facility] [place] [facility] [address] [id number] [place] [address]- 4716 26 Feb, 2011 [facility] [place] [facility] [address] [id number] [place] [address]- 8869 Feb, [facility] [place] [facility] [address] [id number] [place] [address]- 9321 20 Feb, 2011 [facility] [place] [facility] [address] [id number] [place] [address]- 2823 13 Feb, 2011 [facility] [place] [facility] [address] [id number] [place] [address]- 4634 28 Apr, 2010 [facility] [place] [facility] [address] [id number] [place] [address]- 7176 22 Apr, 2010 [facility] [place] [facility] [address] [id number] [place] [address] 2544 16 Apr, 2010 [facility] [place] [facility] [address] [id number] [place] [address]- 1716 15 Apr, 2010 [facility] [place] [facility] [address] [id number] [place] [address]806 15 Apr, 2010 [facility] [place] [facility] [address] [facility] [id number] [place] [address]- 5824 Apr, [facility] [place] [facility] [id number] [address] Mar, [facility] [id number] [address] Mar, [facility] [address] [facility] [id number], [place] [address] Mar, [facility] [id number] [place] [id number] Feb, [facility] [address] [facility] [id number], [place] [address] Feb, [facility] [id number] [place] [address] Feb, [facility] [id number] [address] Feb, [facility] [id number] [address] Dec, [facility] [id number] [address] Dec, [facility] [id number] [address] Oct, [facility] [id number] [address] Mar, [facility] [id number] [address] Mar, [facility] [id number] [address] September, IMMUNIZATIONS No Known Immunizations SOCIAL HISTORY Never Assessed REASON FOR VISIT kidney stones- pain started yesterday JStrasserRN PLAN OF CARE Activity Details Follow Up prn Reason: VITAL SIGNS Height 64 in 2017-09-02 Weight 131.6 lbs 2017-09-02 Temperature 98.0 degrees Fahrenheit 2017-09-02 Heart Rate 70 bpm 2017-09-02 Respiratory Rate 2017-09-02 BMI 22.59 kg/m2 2017-09-02 Blood pressure systolic 120 mmHg 2017-09-02 Blood pressure diastolic 70 mmHg 2017-09-02 MEDICATIONS Medication Instructions Dosage Frequency Start Date End Date Duration Status Lansoprazole 30 MG Orally Once a day 1 capsule 24h 30 days Active Fluticasone Propionate 50 MCG/ACT Nasally twice a day 1 spray in each nostril 12h Feb, 30 day(s) Active Acetaminophen-Codeine #3 300-30 MG Orally every 6 hrs 1 tablet as needed 6h Oct, 28 days Active Neurontin 100 mg Orally 3 times a day 1 capsule 8h September, 30 days Active Macrobid 100 MG TAKE ONE CAPSULE BY MOUTH ONCE DAILY WITH FOOD 90 Active Chlordiazepoxide HCl 10 MG Orally Three times a day 2 capsules 8h Aug, 28 days Active Dicyclomine HCl 20 mg Orally 3 times a day 1 tablet 8h 20 Apr, 2017Oct 30 days Active Bentyl 20 mg Orally Four times a day 1 tablet 6h Active Toprol XL 50 MG Orally once daily 1 tablet 24h Aug, 90 Active Robaxin 500 mg Orally 4 times a day 1 tablet 6h 30 Active Ventolin HFA 108 (90 Base) MCG/ACT Inhalation every 4 hrs 2 puffs as needed 4h Nov, Active Hydrocodone-Acetaminophen 5-325 MG Orally every 6 hrs 1 tablet as needed 6h Aug, Aug, 5 days Active Pantoprazole Sodium 40 MG Orally Once a day 1 tablet 24h 14 Jun, 2017 30 days Active RESULTS No Results PROCEDURES Procedure Date Ordered Result Body Site URINALYSIS, AUTO, W/O SCOPE September 02, 2017 [facility] September 02, 2017 [facility] VISIT ESTABLISHED PATIENT September 02, 2017 INSTRUCTIONS MEDICATIONS ADMINISTERED No Known Medications [...]
[2018-01-17] MEDS ORDERED: NS IV 1000 ML 1,000 ML IV ONE (16:42)
[2018-01-17] MEDS ORDERED: KETOROLAC 30 MG/ML VIAL IVP STA (16:42)
[2018-01-17 17:13] LABS: BASOPHILS # (AUTO) 0.1 10^3/uL (0.0-0.1); BASOPHILS % (AUTO) 1 % (0-10); BILIRUBIN,URINE NEGATIVE (NEGATIVE); CLARITY,URINE CLEAR; COLOR,URINE YELLOW; EOSINOPHILS # (AUTO) 0.1 10^3/uL (0.0-0.3); EOSINOPHILS % (AUTO) 2 % (0-10); GLUCOSE, URINE (UA) NEGATIVE (NEGATIVE); HEMATOCRIT 36 % (35-52); HEMOGLOBIN 12.2 G/DL (11.5-16.0); KETONES,URINE NEGATIVE (NEGATIVE); LEUKOCYTE ESTERASE ,URINE NEGATIVE (NEGATIVE); LYMPHOCYTES % (AUTO) 36 % (12-44); MEAN CORPUSCULAR HEMOGLOBIN 35 PG (25-34); MEAN CORPUSCULAR HGB CONC 34 G/DL (32-36); MEAN CORPUSCULAR VOLUME 103 FL (80-99); MEAN PLATELET VOLUME 9.8 FL (7.4-10.4); MONOCYTES # (AUTO) 0.8 X 10^3 (0.0-1.0); MONOCYTES % (AUTO) 14 % (0-12); NEUTROPHILS # (AUTO) 2.6 X 10^3 (1.8-7.8); NEUTROPHILS % (AUTO) 47 % (42-75); NITRITE,URINE NEGATIVE (NEGATIVE); PH,URINE 6.5 (5-9); PLATELET COUNT 256 10^3/uL (130-400); PROTEIN,URINE NEGATIVE (NEGATIVE); RED BLOOD COUNT 3.48 10^6/uL (4.35-5.85); UROBILINOGEN,URINE NORMAL (NORMAL); WHITE BLOOD COUNT 5.6 10^3/uL (4.3-11.0)
[2018-01-17 17:20] LABS: BACTERIA,URINE NEGATIVE /HPF; RBC,URINE RARE /HPF; SQUAMOUS EPITHELIAL CELL,UR RARE /HPF
[2018-01-17 17:24] LABS: AMPHETAMINE SCREEN, URINE NEGATIVE (NEGATIVE); BARBITURATE SCREEN URINE NEGATIVE (NEGATIVE); BENZODIAZEPINES SCREEN URINE POSITIVE (NEGATIVE); CANNABINOID SCREEN, URINE NEGATIVE (NEGATIVE); COCAINE SCREEN URINE NEGATIVE (NEGATIVE); METHADONE STAT NEGATIVE (NEGATIVE); METHAMPHETAMINE SCREEN URINE S NEGATIVE (NEGATIVE); OPIATE SCREEN URINE POSITIVE (NEGATIVE); OXYCODONE STAT NEGATIVE (NEGATIVE); PROPOXYPHENE STAT NEGATIVE (NEGATIVE); TRICYCLIC ANTIDEPRESSANTS SCRE NEGATIVE (NEGATIVE)
[2018-01-17 17:28] LABS: ALANINE AMINOTRANSFERASE 76 U/L (0-55); ALBUMIN 4.1 GM/DL (3.2-4.5); ALKALINE PHOSPHATASE 82 U/L (40-136); BILIRUBIN,TOTAL 0.5 MG/DL (0.1-1.0); BUN/CREATININE RATIO 13; CALCIUM 9.2 MG/DL (8.5-10.1); CARBON DIOXIDE 20 MMOL/L (21-32); CHLORIDE 95 MMOL/L (98-107); CREATININE SERUM 0.77 MG/DL (0.60-1.30); GFR ESTIMATED > 60; GLUCOSE 81 MG/DL (70-105); POTASSIUM 4.6 MMOL/L (3.6-5.0); SODIUM 126 MMOL/L (135-145); TOTAL PROTEIN 7.5 GM/DL (6.4-8.2)
--- NOTE | 2018-01-17 17:34 | ED GU-Female ---
General Stated Complaint: ELEV BP Source: patient Exam Limitations: no limitations History of Present Illness Date Seen by Provider: Jan 17, 2018 Time Seen by Provider: 16:35 Initial Comments Here with report of elevated blood pressure and lower abdominal pain. She has typical complaint of lower abdominal pain. She is seen a few days ago and diagnosed with urinary tract infection. She was started on cefuroxime. Culture shows that she has Enterococcus faecalis that would not respond to this medication. She has taken Pyridium without much success. She is also using Tylenol. She states Tylenol and aspirin are not working for her pain and that' s all she has. Denies vomiting but does have some nausea. Denies fever but does have some chills. Timing/Duration: week, getting worse Severity/Quality: moderate, aching Location: suprapubic Radiation: none Activities at Onset: none Prior Genitourinary Problems: none Modifying Factors: Worsens With Urinating Associated Symptoms: abdominal pain, dysuria, lower back pain, urinary frequency Allergies and Home Medications Allergies Coded Allergies: Sulfa (Sulfonamide Antibiotics) (Verified Allergy, Unknown, 01/13/18) adhesive (Verified Allergy, Unknown, 12/31/17) fentanyl adhesive meperidine (Verified Allergy, Unknown, HALLUCINATIONS, 12/31/17) pregabalin (Verified Allergy, Unknown, 12/31/17) Home Medications Acetaminophen with Codeine 1 Each Tablet, 1 TAB PO Q6H PRN for PAIN-MODERATE, ( Reported) Albuterol Sulfate 1 Puff Puff, 2 PUFF IH Q4H PRN for SHORTNESS OF BREATH, ( Reported) 1 PUFF = 90 MCG Amlodipine Besylate 5 Mg Tablet, 5 MG PO DAILY, (Reported) Cefuroxime Axetil 500 Mg Tablet, 500 MG PO BID Prescribed by: CYDNEY ANDERSON on 01/13/18 1421 Chlordiazepoxide HCl 10 Mg Capsule, 20 MG PO TID, (Reported) TAKES 2 (10MG) CAPSULES Dicyclomine HCl 20 Mg Tablet, 20 MG PO TID PRN for IBS, (Reported) Lansoprazole 30 Mg Capsule.dr, 30 MG PO DAILY, (Reported) Lisinopril 20 Mg Tablet, 20 MG PO DAILY, (Reported) Melatonin 3 Mg Tablet, 3 MG PO HS PRN for SLEEP, (Reported) Methocarbamol 500 Mg Tablet, 500 MG PO QID PRN for MUSCLE SPASMS, (Reported) Metoprolol Succinate 50 Mg Tab.er.24h, 50 MG PO DAILY Prescribed by: RAVINDRA ROB on 12/22/172016 Nitrofurantoin Macrocrystal 100 Mg Capsule, 100 MG PO DAILY, (Reported) Omeprazole Magnesium 20 Mg Tablet.dr, 40 MG PO BID 40 MG TWICE A DAY Prescribed by: BRIGETTE MORENO on 01/01/18 1109 Phenazopyridine HCl 100 Mg Tablet, 100 MG PO TID Prescribed by: CYDNEY ANDERSON on 01/13/18 1421 Sodium Chloride 30 Ml Michael, 1-2 SPRAYS NS DAILY PRN for CONGESTION, (Reported) Sucralfate 1 Gm Tablet, 1 GM PO TID Prescribed by: AUDIE ROBISON on 01/01/18 0805 Sucralfate 1 Gm Tablet, 1 GM PO TID Prescribed by: BRIGETTE MORENO on 01/01/18 1053 Patient Home Medication List Home Medication List Reviewed: Yes Review of Systems Review of Systems Constitutional: see HPI, chills; No fever EENTM: no symptoms reported Respiratory: no symptoms reported Gastrointestinal: see HPI Genitourinary: see HPI Musculoskeletal: no symptoms reported All Other Systemes Reviewed Negative Unless Noted: Yes Past Cqutvjc-Tfwppc-Eolhjx Hx Past Med/Social Hx: Reviewed Nursing Past Med/Soc Hx Patient Social History Alcohol Use: Denies Use Recreational Drug Use: No Smoking Status: Current Everyday Smoker Type Used: Cigarettes 2nd Hand Smoke Exposure: Yes Recent Foreign Travel: No Contact w/Someone Who Travel: No Recent Hopitalizations: No Immunizations Up To Date Tetanus Booster (TDap): Less than 5yrs Date of Pneumonia Vaccine: Feb 27, 2017 Date of Influenza Vaccine: Feb 27, 2017 Seasonal Allergies Seasonal Allergies: Yes Past Medical History Surgeries: Yes (ADHESIOLYSIS X3, LEFT FOOT X2, C/S X2, HYSTERECTOMY, RIGHT KNEE ) Abdominal, Section, Hysterectomy, Joint Replacement, Orthopedic, Tonsillectomy Respiratory: Yes Pneumonia, COPD, Emphysema Currently Using CPAP: No Currently Using BIPAP: No Cardiac: Yes Hypertension, Hypotension Neurological: No Headaches /Migraines 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 Disorders: No Sexually Transmitted Disease: No HIV/AIDS: No Genitourinary: Yes Kidney Infection, Kidney Stones, UTI-Chronic Gastrointestinal: Yes Gastroesophageal Reflux, Chronic Constipation, Irritable Bowel Musculoskeletal: Yes ("KNEE AND BACK PROBLEMS" "BULGING DISCS" ) Degenerate Disk Disease, Osteoporosis, Arthritis, Fibromyalgia, Chronic Back Pain Endocrine: No HEENT: No Loss of Vision: Bilateral Hearing Impairment: Denies Cancer: No Psychosocial: Yes (Pt states she had Bulemia years ago and lowest weight was 94 lbs ) Anxiety, PTSD, Depression Integumentary: No Blood Disorders: Yes (HX OF ANEMIA) Adverse Reaction/Blood Tranf: No (HAS FLUSHING BUT NO REACTION) Family Medical History Reviewed Nursing Family Hx Abdominal aortic aneurysm Alzheimer's disease 19 MOTHER Cardiovascular disease 19 FATHER ( AT 46 FROM HEART ATTACK) G8 SISTER Hypercholesterolemia 19 FATHER Hypertension 19 FATHER 19 MOTHER Myocardial infarction 19 FATHER Thyroid disease 19 MOTHER G8 SISTER CAD Under 55 Years Old, Hypertension Physical Exam Vital Signs Vital Signs - First Documented 01/17/18 01/17/18 17:15 17:31 Temp 98.1 Pulse 76 Resp 16 B/P (MAP) 200/153 (169) Pulse Ox 94 O2 Delivery Room Air Capillary Refill : Height, Weight, BMI Height: 5'4.00" Weight: 133lbs. 0.0oz. [id number]; 22.8 BMI Method:Stated General Appearance: WD/WN, no apparent distress HEENT: PERRL/EOMI, pharynx normal Neck: full range of motion, supple Cardiovascular: regular rate, rhythm, no murmur Respiratory: lungs clear, normal breath sounds Gastrointestinal: soft; No guarding, No rebound; tenderness Back: normal inspection, no CVA tenderness, no vertebral tenderness Extremities: non-tender, normal inspection 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: alert, oriented x 3 Skin: normal color, warm/dry Progress/Results/Core Measures Suspected Sepsis SIRS Temperature: Pulse: Respiratory Rate: Laboratory Tests 01/17/18 16:56: White Blood Count 5.6 Blood Pressure / Mean: Laboratory Tests 01/17/18 16:56: Creatinine 0.77, Platelet Count 256, Total Bilirubin 0.5 Results/Orders Lab Results Laboratory Tests Test 01/17/18 16:56 Range/Units White Blood Count 5.6 4.3-11.0 10^3/uL Red Blood Count 3.48 L 4.35-5.85 10^6/uL Hemoglobin 12.2 11.5-16.0 G/DL Hematocrit 36 35-52 % Mean Corpuscular Volume 103 H 80-99 FL Mean Corpuscular Hemoglobin 35 H 25-34 PG Mean Corpuscular Hemoglobin Concent 34 32-36 G/DL Red Cell Distribution Width 13.0 10.0-14.5 % Platelet Count 256 130-400 10^3/uL Mean Platelet Volume 9.8 7.4-10.4 FL Neutrophils (%) (Auto) 47 42-75 % Lymphocytes (%) (Auto) 36 12-44 % Monocytes (%) (Auto) 14 H 0-12 % Eosinophils (%) (Auto) 2 0-10 % Basophils (%) (Auto) 1 0-10 % Neutrophils # (Auto) 2.6 1.8-7.8 X 10^3 Lymphocytes # (Auto) 2.0 1.0-4.0 X 10^3 Monocytes # (Auto) 0.8 0.0-1.0 X 10^3 Eosinophils # (Auto) 0.1 0.0-0.3 10^3/uL Basophils # (Auto) 0.1 0.0-0.1 10^3/uL Urine Color YELLOW Urine Clarity CLEAR Urine pH 6.5 5-9 Urine Specific Boyd 1.010 L 1.016-1.022 Urine Protein NEGATIVE NEGATIVE Urine Glucose (UA) NEGATIVE NEGATIVE Urine Ketones NEGATIVE NEGATIVE Urine Nitrite NEGATIVE NEGATIVE Urine Bilirubin NEGATIVE NEGATIVE Urine Urobilinogen NORMAL NORMAL MG/DL Urine Leukocyte Esterase NEGATIVE NEGATIVE Urine RBC (Auto) 1+ H NEGATIVE Urine RBC RARE /HPF Urine WBC NONE /HPF Urine Squamous Epithelial Cells RARE /HPF Urine Crystals NONE /LPF Urine Bacteria NEGATIVE /HPF Urine Casts NONE /LPF Urine Mucus NEGATIVE /LPF Urine Culture Indicated NO Sodium Level 126 L 135-145 MMOL/L Potassium Level 4.6 3.6-5.0 MMOL/L Chloride Level 95 L 98-107 MMOL/L Carbon Dioxide Level 20 L 21-32 MMOL/L Anion Gap 11 5-14 MMOL/L Blood Urea Nitrogen 10 7-18 MG/DL Creatinine 0.77 0.60-1.30 MG/DL Estimat Glomerular Filtration Rate > 60 BUN/Creatinine Ratio 13 Glucose Level 81 70-105 MG/DL Calcium Level 9.2 8.5-10.1 MG/DL Corrected Calcium 9.1 8.5-10.1 MG/DL Total Bilirubin 0.5 0.1-1.0 MG/DL Aspartate Amino Transf (AST/SGOT) 77 H 5-34 U/L Alanine Aminotransferase (ALT/SGPT) 76 H 0-55 U/L Alkaline Phosphatase 82 40-136 U/L C-Reactive Protein High Sensitivity 0.16 0.00-0.50 MG/DL Total Protein 7.5 6.4-8.2 GM/DL Albumin 4.1 3.2-4.5 GM/DL Urine Opiates Screen POSITIVE H NEGATIVE Urine Oxycodone Screen NEGATIVE NEGATIVE Urine Methadone Screen NEGATIVE NEGATIVE Urine Propoxyphene Screen NEGATIVE NEGATIVE Urine Barbiturates Screen NEGATIVE NEGATIVE Ur Tricyclic Antidepressants Screen NEGATIVE NEGATIVE Urine Phencyclidine Screen NEGATIVE NEGATIVE Urine Amphetamines Screen NEGATIVE NEGATIVE Urine Methamphetamines Screen NEGATIVE NEGATIVE Urine Benzodiazepines Screen POSITIVE H NEGATIVE Urine Cocaine Screen NEGATIVE NEGATIVE Urine Cannabinoids Screen NEGATIVE NEGATIVE My Orders Orders - SONAM MCCABE MD Saline Lock/Iv-Start (01/17/18 16:42) Ns Iv 1000 Ml (Sodium Chloride 0.9%) (01/17/18 16:42) Cbc With Automated Diff (01/17/18 16:42) Comprehensive Metabolic Panel (01/17/18 16:42) Hs C Reactive Protein (01/17/18 16:42) Ua Culture If Indicated (01/17/18 16:42) Ketorolac Injection (Toradol Injection) (01/17/18 16:42) Drug Screen Stat (Urine) (01/17/18 17:01) Hydrocodone/Apap 5/325 Tablet (Lortab 5 (01/17/18 17:52) Amlodipine Tablet (Norvasc Tablet) (01/17/18 18:00) Levofloxacin Tablet (Levaquin Tablet) (01/17/18 17:53) Medications Given in ED Current Medications Medications Dose Ordered Sig/Lisa Route Start Time Stop Time Status Last Admin Dose Admin Sodium Chloride 1,000 ml @ 0 mls/hr Q0M ONCE IV 01/17/18 16:42 01/17/18 16:45 DC 01/17/18 17:15 1,000 MLS/HR Vital Signs/I&O 01/17/18 01/17/18 17:15 17:31 Temp 98.1 98.1 Pulse 76 Resp 16 B/P (MAP) 200/153 (169) Pulse Ox 94 O2 Delivery Room Air Capillary Refill : Progress Note : Progress Note Seen and evaluated. IV, labs and UA ordered. Normal saline 1 L bolus. Toradol 30 mg IV. Monitor patient. 1754: I did discuss with the patient about her findings. She has received a liter of normal saline. We will initiate blood pressure control with amlodipine 5 mg by mouth now. She will get one tablet of hydrocodone 5/325 with prescription for tramadol. We will continue treatment of her urinary tract infection with Levaquin 500 mg by mouth now and outpatient at 250 daily for 4 more days. She has follow-up with Dr. Andrade on Monday. I will send a copy the chart that her. Her blood pressure problems and pelvic pain problems are chronic and ongoing. We will defer to continued outpatient therapy for these at this point. This was discussed with the patient and she agrees. Discharged home with return precautions. Patient verbalize understanding instructions and agreement with plan. Departure Impression Primary Impression: Suprapubic abdominal pain Additional Impressions: Hypertension, uncontrolled Urinary tract infection Qualified Codes: N30.00 - Acute cystitis without hematuria Disposition: HOME, SELF-CARE Condition: Improved Departure-Patient Inst. Decision time for Depature: 18:00 Referrals: [facility] – [place] (PCP/Family) Primary Care Physician Patient Instructions: Acute Abdomen (Belly Pain), Adult (DC), High Blood Pressure (DC), Urinary Tract Infection, Adult (DC) Add. Discharge Instructions: Continue home medications as directed. You may stop the cefuroxime. Start new antibiotic that was prescribed today. Your first dose of that antibiotic will be tomorrow since she had a dose here in the ER. You may take Tylenol/ acetaminophen and/or ibuprofen as needed for pain. You may take this with the prescribed pain medicine. Return for worse pain, fever, vomiting, weakness, breathing problems or other concerns as needed. Eat a normal diet and drink plenty of fluids. Scripts Tramadol HCl (Tramadol HCl) 50 Mg Tablet 50 MG PO Q6H PRN for PAIN, #15 TAB 0 Refills Prov: SONAM MCCABE MD 01/17/18 Levofloxacin (Levofloxacin) 250 Mg Tablet 250 MG PO DAILY, #4 TAB Prov: SONAM MCCABE MD 01/17/18 Copy Copies To 1: SIVAKUMAR ANDRADE TIMOTHY D MD Jan 17, 2018 17:34
--- OUTSIDE RECORDS SUMMARY | 2018-01-17 17:46 | XMS REPORT | Continuity of Care Document ---
Author Author [facility] Address Unknown Phone Unavailable Allergies Active Description Code Type Severity Reaction Onset Reported/Identified Relationship to Patient Clinical Status Yes fear of needles-will pass out OA N/A N/A 08/14/2008 Yes fear of needles-will pass out OA 08/14/2008 Yes hydrochlorothiazide Drug Allergy N/A N/A 01/27/2009 Yes hydrochlorothiazide Drug Allergy 01/27/2009 Yes sulfa drug Drug Allergy 06/23/2010 Yes acetaminophen [id number] Drug Allergy Unknown NAUSEA 10/29/2014 Yes hydrocodone [id number] Drug Allergy Unknown NAUSEA 10/29/2014 Yes fentanyl [id number] Drug Allergy Unknown N/A 01/01/2015 Yes acetaminophen [id number] Drug Allergy Unknown N/A 05/29/2016 Yes hydrocodone [id number] Drug Allergy Unknown N/A 05/29/2016 Yes adhesive [id number] Drug Allergy Unknown N/A 12/31/2017 Yes meperidine [id number] Drug Allergy Unknown HALLUCINATIONS 12/31/2017 Yes pregabalin [id number] Drug Allergy Unknown N/A 12/31/2017 Yes Sulfa (Sulfonamide Antibiotics) [id number] Drug Allergy Unknown N/A 2017 Medications There [...] Urine 08/14/2008 789.00 Abdominal Pain 08/14/2008 SALLY ACCOUNTS ADMINISTRATOR, VALERIE S 599.70 Blood In Urine 08/14/2008 SALLY ACCOUNTS ADMINISTRATOR, VALERIE S 789.00 Abdominal Pain 08/14/2008 YATES DO, KARO K 599.70 Blood In Urine 08/14/2008 YATES DO, KARO K 789.00 Abdominal Pain 08/14/2008 SALLY ACCOUNTS ADMINISTRATOR, VALERIE S 599.70 Blood In Urine 08/14/2008 SALLY ACCOUNTS ADMINISTRATOR, VALERIE S 789.00 Abdominal Pain 08/14/2008 SALLY ACCOUNTS ADMINISTRATOR, VALERIE S 599.70 Blood In Urine 08/14/2008 SALLY ACCOUNTS ADMINISTRATOR, VALERIE S 789.00 Abdominal Pain 08/14/2008 YATES [...] S 599.70 Blood In Urine 08/14/2008 SALLY ACCOUNTS ADMINISTRATOR, VALERIE S 789.00 Abdominal Pain 08/14/2008 YATES DO, KARO K 599.70 Blood In Urine 08/14/2008 YATES DO, KARO K 789.00 Abdominal Pain 08/14/2008 SALLY ACCOUNTS ADMINISTRATOR, VALERIE S 599.70 Blood In Urine 08/14/2008 SALLY ACCOUNTS ADMINISTRATOR, VALERIE S 789.00 Abdominal Pain 08/14/2008 YATES DO, KARO K 599.70 Blood In Urine 08/14/2008 YATES DO, KARO K 789.00 Abdominal Pain 08/14/2008 SALLY ACCOUNTS ADMINISTRATOR, VALERIE S 599.70 Blood In Urine 08/14/2008 SALLY ACCOUNTS ADMINISTRATOR, VALERIE S 789.00 Abdominal Pain 08/14/2008 SALLY ACCOUNTS ADMINISTRATOR, VALERIE S 599.70 Blood In Urine 08/14/2008 SALLY ACCOUNTS ADMINISTRATOR, VALERIE S 789.00 Abdominal Pain 08/14/2008 SALLY ACCOUNTS ADMINISTRATOR, VALERIE S 599.70 Blood In Urine 08/14/2008 SALLY ACCOUNTS ADMINISTRATOR, VALERIE S 789.00 Abdominal Pain 08/14/2008 SALLY ACCOUNTS ADMINISTRATOR, VALERIE S 599.70 Blood In Urine 08/14/2008 SALLY ACCOUNTS ADMINISTRATOR, VALERIE S 789.00 Abdominal Pain 08/14/2008 SALLY ACCOUNTS ADMINISTRATOR, VALERIE S 599.70 Blood In Urine 08/14/2008 SALLY ACCOUNTS ADMINISTRATOR, VALERIE S 789.00 Abdominal Pain 08/14/2008 SALLY ACCOUNTS ADMINISTRATOR, VALERIE S 599.70 Blood In Urine 08/14/2008 SALLY ACCOUNTS ADMINISTRATOR, VALERIE S 789.00 Abdominal Pain 08/14/2008 SALLY ACCOUNTS ADMINISTRATOR, VALERIE S 599.70 Blood In Urine 08/14/2008 SALLY ACCOUNTS ADMINISTRATOR, VALERIE S 789.00 Abdominal Pain 08/14/2008 YATES DO, KARO K 599.70 Blood In Urine 08/14/2008 YATES DO, KARO K 789.00 Abdominal Pain 08/14/2008 SALLY ACCOUNTS ADMINISTRATOR, VALERIE S 599.70 Blood In Urine 08/14/2008 SALLY ACCOUNTS ADMINISTRATOR, VALERIE S 789.00 Abdominal Pain 08/14/2008 YATES DO, KARO K 599.70 Blood In Urine 08/14/2008 YATES DO, KARO K 789.00 Abdominal Pain 08/14/2008 SALLY ACCOUNTS ADMINISTRATOR, VALERIE S 599.70 Blood In Urine 08/14/2008 SALLY ACCOUNTS ADMINISTRATOR, VALERIE S 789.00 Abdominal Pain 08/14/2008 SALLY ACCOUNTS ADMINISTRATOR, VAELRIE S 599.70 Blood In Urine 08/14/2008 SALLY ACCOUNTS ADMINISTRATOR, VALERIE S 789.00 Abdominal Pain 08/14/2008 SALLY ACCOUNTS ADMINISTRATOR, VALERIE S 599.70 Blood In Urine 08/14/2008 SALLY ACCOUNTS ADMINISTRATOR, VALERIE S 789.00 Abdominal Pain 08/14/2008 YATES DO, KARO K 599.70 Blood In Urine 08/14/2008 YATES DO, KARO K 789.00 Abdominal Pain 08/14/2008 SALLY ACCOUNTS ADMINISTRATOR, VALERIE S 599.70 Blood In Urine 08/14/2008 SALLY ACCOUNTS ADMINISTRATOR, VALERIE S 789.00 Abdominal Pain 09/09/2008 YATES DO, KARO K 599.0 Urinary Tract Infection 09/09/2008 YATES DO, KARO K 599.0 Urinary Tract Infection 09/09/2008 TACO ACCOUNTS ADMINISTRATOR, ZORAIDA R 599.0 Urinary Tract Infection 09/09/2008 599.0 Urinary Tract Infection 09/09/2008 SALLY ACCOUNTS ADMINISTRATOR, VALERIE S 599.0 Urinary Tract Infection 09/09/2008 YATES DO, KARO K 599.0 Urinary Tract Infection 09/09/2008 SALLY ACCOUNTS ADMINISTRATOR, VALERIE S 599.0 Urinary Tract Infection 09/09/2008 SALLY ACCOUNTS ADMINISTRATOR, VALERIE S 599.0 Urinary Tract Infection 09/09/2008 YATES DO, KARO K 599.0 Urinary Tract Infection 09/09/2008 599.0 Urinary Tract Infection 09/09/2008 599.0 Urinary Tract Infection 09/09/2008 599.0 Urinary Tract Infection 09/09/2008 MICHELLE CAMARGO MD 599.0 Urinary Tract Infection 09/09/2008 SALLY ACCOUNTS ADMINISTRATOR, VALERIE S 599.0 Urinary Tract Infection 09/09/2008 SALLY ACCOUNTS ADMINISTRATOR, VALERIE S 599.0 Urinary Tract Infection 09/09/2008 YATES DO, KARO K 599.0 Urinary Tract Infection 09/09/2008 SALLY ACCOUNTS ADMINISTRATOR, VALERIE S 599.0 Urinary Tract Infection 09/09/2008 YATES DO, KARO K 599.0 Urinary Tract Infection 09/09/2008 SALLY ACCOUNTS ADMINISTRATOR, VALERIE S 599.0 Urinary Tract Infection 09/09/2008 SALLY ACCOUNTS ADMINISTRATOR, VALERIE S 599.0 Urinary Tract Infection 09/09/2008 SALLY ACCOUNTS ADMINISTRATOR, VALERIE S 599.0 Urinary Tract Infection 09/09/2008 SALLY ACCOUNTS ADMINISTRATOR, VALERIE S 599.0 Urinary Tract Infection 09/09/2008 SALLY ACCOUNTS ADMINISTRATOR, VALERIE S 599.0 Urinary Tract Infection 09/09/2008 SALLY ACCOUNTS ADMINISTRATOR, VALERIE S 599.0 Urinary Tract Infection 09/09/2008 SALLY ACCOUNTS ADMINISTRATOR, VALERIE S 599.0 Urinary Tract Infection 09/09/2008 YATES DO, KARO K 599.0 Urinary Tract Infection 09/09/2008 SALLY ACCOUNTS ADMINISTRATOR, VALERIE S 599.0 Urinary Tract Infection 09/09/2008 YATES DO, KARO K 599.0 Urinary Tract Infection 09/09/2008 SALLY ACCOUNTS ADMINISTRATOR, VALERIE S 599.0 Urinary Tract Infection 09/09/2008 SALLY ACCOUNTS ADMINISTRATOR, VALERIE S 599.0 Urinary Tract Infection 09/09/2008 SALLY ACCOUNTS ADMINISTRATOR, VALERIE S 599.0 Urinary Tract Infection 09/09/2008 YATES DO, KARO K 599.0 Urinary Tract Infection 09/09/2008 SALLY ACCOUNTS ADMINISTRATOR, VALERIE S 599.0 Urinary Tract Infection 09/30/2008 YATES DO, KARO K 564.1 IRRITABLE BOWEL SYNDROME 09/30/2008 YATES DO, KARO K 724.2 LUMBAGO 09/30/2008 YATES DO, KARO K 564.1 IRRITABLE BOWEL SYNDROME 09/30/2008 YATES DO, KARO K 724.2 LUMBAGO 09/30/2008 CHARLEEN ESPAÑA APRNRICIA R 564.1 IRRITABLE BOWEL SYNDROME 09/30/2008 TACO ACCOUNTS ADMINISTRATOR ZORAIDA R 724.2 LUMBAGO 09/30/2008 564.1 IRRITABLE BOWEL SYNDROME 09/30/2008 724.2 LUMBAGO 09/30/2008 SALLY ACCOUNTS ADMINISTRATOR, VALERIE S 564.1 IRRITABLE BOWEL SYNDROME 09/30/2008 SALLY ACCOUNTS ADMINISTRATOR, VALERIE S 724.2 LUMBAGO 09/30/2008 YATES DO, KARO K 564.1 IRRITABLE BOWEL SYNDROME 09/30/2008 YATES DO, KARO K 724.2 LUMBAGO 09/30/2008 SALLY ACCOUNTS ADMINISTRATOR, VALERIE S 564.1 IRRITABLE BOWEL SYNDROME 09/30/2008 [...] VALERIE S 564.1 IRRITABLE BOWEL SYNDROME 09/30/2008 ASLLY RIVERA, VALERIE S 724.2 LUMBAGO 09/30/2008 SALLY RIVERA VALERIE S 564.1 IRRITABLE BOWEL SYNDROME 09/30/2008 SALLY ACCOUNTS ADMINISTRATOR, VALERIE S 724.2 LUMBAGO 09/30/2008 SALLY ACCOUNTS ADMINISTRATOR, VALERIE S 564.1 IRRITABLE BOWEL SYNDROME 09/30/2008 SALLY ACCOUNTS ADMINISTRATOR, VALERIE S 724.2 LUMBAGO 09/30/2008 SALLY ACCOUNTS ADMINISTRATOR, VALERIE S 564.1 IRRITABLE BOWEL SYNDROME 09/30/2008 SALLY ACCOUNTS ADMINISTRATOR, VALERIE S 724.2 LUMBAGO 09/30/2008 SALLY ACCOUNTS ADMINISTRATOR, VALERIE S 564.1 IRRITABLE BOWEL SYNDROME 09/30/2008 SALLY ACCOUNTS ADMINISTRATOR, VALERIE S 724.2 LUMBAGO 09/30/2008 SALLY ACCOUNTS ADMINISTRATOR, VALERIE S 564.1 IRRITABLE BOWEL SYNDROME 09/30/2008 SALLY ACCOUNTS ADMINISTRATOR, VALERIE S 724.2 LUMBAGO 09/30/2008 SALLY ACCOUNTS ADMINISTRATOR, VALERIE S 564.1 IRRITABLE BOWEL SYNDROME 09/30/2008 SALLY ACCOUNTS ADMINISTRATOR, VALERIE S 724.2 LUMBAGO 09/30/2008 YATES DO, KARO K 564.1 IRRITABLE BOWEL SYNDROME 09/30/2008 YATES DO, KARO K 724.2 LUMBAGO 09/30/2008 SALLY ACCOUNTS ADMINISTRATOR, VALERIE S 564.1 IRRITABLE BOWEL SYNDROME 09/30/2008 SALLY ACCOUNTS ADMINISTRATOR, VALERIE S 724.2 LUMBAGO 09/30/2008 YATES DO, KARO K 564.1 IRRITABLE BOWEL SYNDROME 09/30/2008 YATES DO, KARO K 724.2 LUMBAGO 09/30/2008 SALLY ACCOUNTS ADMINISTRATOR, VALERIE S 564.1 IRRITABLE BOWEL SYNDROME 09/30/2008 SALLY ACCOUNTS ADMINISTRATOR, VALERIE S 724.2 LUMBAGO 09/30/2008 SALLY ACCOUNTS ADMINISTRATOR, VALERIE S 564.1 IRRITABLE BOWEL SYNDROME 09/30/2008 SALLY ACCOUNTS ADMINISTRATOR, VALERIE S 724.2 LUMBAGO 09/30/2008 SALLY ACCOUNTS ADMINISTRATOR, VALERIE S 564.1 IRRITABLE BOWEL SYNDROME 09/30/2008 SALLY ACCOUNTS ADMINISTRATOR, VALERIE S 724.2 LUMBAGO 09/30/2008 YATES DO, KARO K 564.1 IRRITABLE BOWEL SYNDROME 09/30/2008 YATES DO, KARO K 724.2 LUMBAGO 09/30/2008 SALLY ACCOUNTS ADMINISTRATOR, VALERIE S 564.1 IRRITABLE BOWEL SYNDROME 09/30/2008 SALLY ACCOUNTS ADMINISTRATOR, VALERIE S 724.2 LUMBAGO 10/21/2008 YATES DO, KARO K 788.1 Dysuria 10/21/2008 YATES DO, KARO K 788.1 Dysuria 10/21/2008 TACO ACCOUNTS ADMINISTRATOR, ZORAIDA R 788.1 Dysuria 10/21/2008 788.1 Dysuria 10/21/2008 SALLY ACCOUNTS ADMINISTRATOR, VALERIE S 788.1 Dysuria 10/21/2008 YATES DO, KARO K 788.1 Dysuria 10/21/2008 SALLY ACCOUNTS ADMINISTRATOR, VALERIE S 788.1 Dysuria 10/21/2008 SALLY ACCOUNTS ADMINISTRATOR, VALERIE S 788.1 Dysuria 10/21/2008 YATES DO, KARO K 788.1 Dysuria 10/21/2008 788.1 Dysuria 10/21/2008 788.1 Dysuria 10/21/2008 788.1 Dysuria 10/21/2008 MARY JO ABRAMS, MICHELLE 788.1 Dysuria 10/21/2008 SALLY ACCOUNTS ADMINISTRATOR, VALERIE S 788.1 Dysuria 10/21/2008 SALLY ACCOUNTS ADMINISTRATOR, VALERIE S 788.1 Dysuria 10/21/2008 YATES DO, KARO K 788.1 Dysuria 10/21/2008 SALLY ACCOUNTS ADMINISTRATOR, VALERIE S 788.1 Dysuria 10/21/2008 YATES DO, KARO K 788.1 Dysuria 10/21/2008 SALLY ACCOUNTS ADMINISTRATOR, VALERIE S 788.1 Dysuria 10/21/2008 SALLY ACCOUNTS ADMINISTRATOR, VALERIE S 788.1 Dysuria 10/21/2008 SALLY ACCOUNTS ADMINISTRATOR, VALERIE S 788.1 Dysuria 10/21/2008 SALLY ACCOUNTS ADMINISTRATOR, VALERIE S 788.1 Dysuria 10/21/2008 SALLY ACCOUNTS ADMINISTRATOR, VALERIE S 788.1 Dysuria 10/21/2008 SALLY ACCOUNTS ADMINISTRATOR, VALERIE S 788.1 Dysuria 10/21/2008 SALLY ACCOUNTS ADMINISTRATOR, VALERIE S 788.1 Dysuria 10/21/2008 YATES DO, KARO K 788.1 Dysuria 10/21/2008 SALLY ACCOUNTS ADMINISTRATOR, VALERIE S 788.1 Dysuria 10/21/2008 YATES DO, KARO K 788.1 Dysuria 10/21/2008 SALLY ACCOUNTS ADMINISTRATOR, VALERIE S 788.1 Dysuria 10/21/2008 SALLY ACCOUNTS ADMINISTRATOR, VALERIE S 788.1 Dysuria 10/21/2008 SALLY ACCOUNTS ADMINISTRATOR, VALERIE S 788.1 Dysuria 10/21/2008 YATES DO, KARO K 788.1 Dysuria 10/21/2008 SALLY ACCOUNTS ADMINISTRATOR, VALERIE S 788.1 Dysuria 01/13/2009 YATES DO, KARO K 300.00 Anxiety State Unspecified 01/13/2009 YATES DO, KARO K 401.9 UNSPECIFIED ESSENTIAL HYPERTENSION 01/13/2009 YATES DO, KARO K 300.00 Anxiety State Unspecified 01/13/2009 YATES DO, KARO K 401.9 UNSPECIFIED ESSENTIAL HYPERTENSION 01/13/2009 ESPAÑA ACCOUNTS ADMINISTRATOR, ZORAIDA R 300.00 Anxiety State Unspecified 01/13/2009 ESPAÑA ACCOUNTS ADMINISTRATOR, ZORAIDA R 401.9 UNSPECIFIED ESSENTIAL HYPERTENSION 01/13/2009 300.00 Anxiety State Unspecified 01/13/2009 401.9 UNSPECIFIED ESSENTIAL HYPERTENSION 01/13/2009 SALLY ACCOUNTS ADMINISTRATOR, VALERIE S 300.00 Anxiety State Unspecified 01/13/2009 SALLY ACCOUNTS ADMINISTRATOR, VALERIE S 401.9 UNSPECIFIED ESSENTIAL HYPERTENSION 01/13/2009 YATES DO, KARO K 300.00 Anxiety State Unspecified 01/13/2009 YATES DO, KARO K 401.9 UNSPECIFIED ESSENTIAL HYPERTENSION 01/13/2009 SALLY ACCOUNTS ADMINISTRATOR, VALERIE S 300.00 Anxiety State Unspecified 01/13/2009 SALLY ACCOUNTS ADMINISTRATOR, VALERIE S 401.9 UNSPECIFIED ESSENTIAL HYPERTENSION 01/13/2009 SALLY ACCOUNTS ADMINISTRATOR, VALERIE S 300.00 Anxiety State Unspecified 01/13/2009 SALLY ACCOUNTS ADMINISTRATOR, VALERIE S 401.9 UNSPECIFIED ESSENTIAL HYPERTENSION 01/13/2009 [...] MD 401.9 UNSPECIFIED ESSENTIAL HYPERTENSION 01/13/2009 SALLY ACCOUNTS ADMINISTRATOR VALERIE S 300.00 Anxiety State Unspecified 01/13/2009 SALLY RIVERA VALERIE S 401.9 UNSPECIFIED ESSENTIAL HYPERTENSION 01/13/2009 SALLY PERSAUDN VALERIE S 300.00 Anxiety State Unspecified 01/13/2009 SERINA ZAVALA APRNNDA S 401.9 UNSPECIFIED ESSENTIAL HYPERTENSION 01/13/2009 YATES DO, KARO K 300.00 Anxiety State Unspecified 01/13/2009 YATES DO, KARO K 401.9 UNSPECIFIED ESSENTIAL HYPERTENSION 01/13/2009 SALLY ACCOUNTS ADMINISTRATOR VALERIE S 300.00 Anxiety State Unspecified 01/13/2009 SALLY ACCOUNTS ADMINISTRATOR VALERIE S 401.9 UNSPECIFIED ESSENTIAL HYPERTENSION 01/13/2009 YATES DO, KARO K 300.00 Anxiety State Unspecified 01/13/2009 YATES DO, KARO K 401.9 UNSPECIFIED ESSENTIAL HYPERTENSION 01/13/2009 SALLY ACCOUNTS ADMINISTRATOR, VALERIE S 300.00 Anxiety State Unspecified 01/13/2009 SALLY ACCOUNTS ADMINISTRATOR, VALERIE S 401.9 UNSPECIFIED ESSENTIAL HYPERTENSION 01/13/2009 SALLY ACCOUNTS ADMINISTRATOR, VALERIE S 300.00 Anxiety State Unspecified 01/13/2009 SALYL ACCOUNTS ADMINISTRATOR VALERIE S 401.9 UNSPECIFIED ESSENTIAL HYPERTENSION 01/13/2009 SALLY ACCOUNTS ADMINISTRATOR, VALERIE S 300.00 Anxiety State Unspecified 01/13/2009 SALLY ACCOUNTS ADMINISTRATOR, VALERIE S 401.9 UNSPECIFIED ESSENTIAL HYPERTENSION 01/13/2009 SALLY ACCOUNTS ADMINISTRATOR, VALERIE S 300.00 Anxiety State Unspecified 01/13/2009 SALLY ACCOUNTS ADMINISTRATOR, VALERIE S 401.9 UNSPECIFIED ESSENTIAL HYPERTENSION 01/13/2009 SALLY ACCOUNTS ADMINISTRATOR, VALERIE S 300.00 Anxiety State Unspecified 01/13/2009 SALLY ACCOUNTS ADMINISTRATOR, VALEREI S 401.9 UNSPECIFIED ESSENTIAL HYPERTENSION 01/13/2009 SALLY ACCOUNTS ADMINISTRATOR, VALERIE S 300.00 Anxiety State Unspecified 01/13/2009 SALLY ACCOUNTS ADMINISTRATOR, VALERIE S 401.9 UNSPECIFIED ESSENTIAL HYPERTENSION 01/13/2009 SALLY ACCOUNTS ADMINISTRATOR, VALERIE S 300.00 Anxiety State Unspecified 01/13/2009 SALLY ACCOUNTS ADMINISTRATOR, VALERIE S 401.9 UNSPECIFIED ESSENTIAL HYPERTENSION 01/13/2009 YATES DO, KARO K 300.00 Anxiety State Unspecified 01/13/2009 YATES DO, KARO K 401.9 UNSPECIFIED ESSENTIAL HYPERTENSION 01/13/2009 SALLY ACCOUNTS ADMINISTRATOR, VALERIE S 300.00 Anxiety State Unspecified 01/13/2009 SALLY ACCOUNTS ADMINISTRATOR, VALERIE S 401.9 UNSPECIFIED ESSENTIAL HYPERTENSION 01/13/2009 YATES DO, KARO K 300.00 Anxiety State Unspecified 01/13/2009 YATES DO, KARO K 401.9 UNSPECIFIED ESSENTIAL HYPERTENSION 01/13/2009 SALLY ACCOUNTS ADMINISTRATOR, VALERIE S 300.00 Anxiety State Unspecified 01/13/2009 SALLY ACCOUNTS ADMINISTRATOR, VALERIE S 401.9 UNSPECIFIED ESSENTIAL HYPERTENSION 01/13/2009 SALLY ACCOUNTS ADMINISTRATOR, VALERIE S 300.00 Anxiety State Unspecified 01/13/2009 SALLY ACCOUNTS ADMINISTRATOR, VALERIE S 401.9 UNSPECIFIED ESSENTIAL HYPERTENSION 01/13/2009 SALLY ACCOUNTS ADMINISTRATOR, VALERIE S 300.00 Anxiety State Unspecified 01/13/2009 SALLY ACCOUNTS ADMINISTRATOR, VALERIE S 401.9 UNSPECIFIED ESSENTIAL HYPERTENSION 01/13/2009 YATES DO, KARO K 300.00 Anxiety State Unspecified 01/13/2009 YATES DO, KARO K 401.9 UNSPECIFIED ESSENTIAL HYPERTENSION 01/13/2009 SALLY ACCOUNTS ADMINISTRATOR, VALERIE S 300.00 Anxiety State Unspecified 01/13/2009 SALLY ACCOUNTS ADMINISTRATOR, VALERIE S 401.9 UNSPECIFIED ESSENTIAL HYPERTENSION 03/25/2009 YATES DO, KARO K 296.90 Episodic Mood Disorders 03/25/2009 YATES DO, KARO K 780.79 Feelings Of Weakness 03/25/2009 YATES DO, KARO K 787.91 Diarrhea 03/25/2009 YATES DO, KARO K 296.90 Episodic Mood Disorders 03/25/2009 YATES DO, KARO K 780.79 Feelings Of Weakness 03/25/2009 YATES DO, KARO K 787.91 Diarrhea 03/25/2009 ESPAÑA ACCOUNTS ADMINISTRATOR, ZORAIDA R 296.90 Episodic Mood Disorders 03/25/2009 ESPAÑA ACCOUNTS ADMINISTRATOR, ZORAIDA R 780.79 Feelings Of Weakness 03/25/2009 ESPAÑA ACCOUNTS ADMINISTRATOR, ZORAIDA R 787.91 Diarrhea 03/25/2009 296.90 Episodic [...] S 780.79 Feelings Of Weakness 03/25/2009 SALLY ACCOUNTS ADMINISTRATOR, VALERIE S 787.91 Diarrhea 03/25/2009 YATES DO, [...] DO, KARO K 787.91 Diarrhea 03/25/2009 SALLY ACCOUNTS ADMINISTRATOR, VALERIE S 296.90 Episodic Mood Disorders 03/25/2009 SALLY RIVERA VALERIE S 780.79 Feelings Of Weakness 03/25/2009 SALLY ACCOUNTS ADMINISTRATOR VALERIE S 787.91 Diarrhea 03/25/2009 SALLY ACCOUNTS ADMINISTRATOR VALERIE S 296.90 Episodic Mood Disorders 03/25/2009 [...] S 296.90 Episodic Mood Disorders 03/25/2009 SALLY ACCOUNTS ADMINISTRATOR, VALERIE S 780.79 Feelings Of Weakness 03/25/2009 SALLY RIVERA VALERIE S 787.91 Diarrhea 03/25/2009 SALLY ACCOUNTS ADMINISTRATOR, VALERIE S 296.90 Episodic Mood Disorders 03/25/2009 SALLY ACCOUNTS ADMINISTRATOR, VALERIE S 780.79 Feelings Of Weakness 03/25/2009 [...] ABRAMS, MICHELLE 599.71 Gross Hematuria 10/20/2009 SALLY ACCOUNTS ADMINISTRATOR, VALERIE S 599.71 Gross Hematuria 10/20/2009 SALLY ACCOUNTS ADMINISTRATOR, VALERIE S 599.71 Gross Hematuria 10/20/2009 YATES DO, KARO K 599.71 Gross Hematuria 10/20/2009 SALLY ACCOUNTS ADMINISTRATOR, VALERIE S 599.71 Gross Hematuria 10/20/2009 YATES DO, KARO K 599.71 Gross Hematuria 10/20/2009 SALLY ACCOUNTS ADMINISTRATOR, VALERIE S 599.71 Gross Hematuria 10/20/2009 SALLY ACCOUNTS ADMINISTRATOR, VALERIE S 599.71 Gross Hematuria 10/20/2009 SALLY ACCOUNTS ADMINISTRATOR, VALERIE S 599.71 Gross Hematuria 10/20/2009 SALLY ACCOUNTS ADMINISTRATOR, VALERIE S 599.71 Gross Hematuria 10/20/2009 SALLY ACCOUNTS ADMINISTRATOR, VALERIE S 599.71 Gross Hematuria 10/20/2009 SALLY ACCOUNTS ADMINISTRATOR, VALERIE S 599.71 Gross Hematuria 10/20/2009 SALLY ACCOUNTS ADMINISTRATOR, VALERIE S 599.71 Gross Hematuria 10/20/2009 YATES DO, KARO K 599.71 Gross Hematuria 10/20/2009 SALLY ACCOUNTS ADMINISTRATOR, VALERIE S 599.71 Gross Hematuria 10/20/2009 YATES DO, KARO K 599.71 Gross Hematuria 10/20/2009 SALLY ACCOUNTS ADMINISTRATOR, VALERIE S 599.71 Gross Hematuria 10/20/2009 SALLY ACCOUNTS ADMINISTRATOR, VALERIE S 599.71 Gross Hematuria 10/20/2009 SALLY ACCOUNTS ADMINISTRATOR, VALERIE S 599.71 Gross Hematuria 10/20/2009 YATES DO, KARO K 599.71 Gross Hematuria 10/20/2009 SALLY ACCOUNTS ADMINISTRATOR, VALERIE S 599.71 Gross Hematuria 10/27/2009 YATES [...] KARO K 788.41 Urinary Frequency 10/27/2009 ESPAÑA ACCOUNTS ADMINISTRATOR, ZORAIDA R 305.1 NICOTINE DEPENDENCE 10/27/2009 ESPAÑA ACCOUNTS ADMINISTRATOR, ZORAIDA R 307.40 Insomnia 10/27/2009 ESPAÑA ACCOUNTS ADMINISTRATOR, ZORAIDA R 536.8 Dyspepsia And Other Specified Disorders Of Function Of Stomach 10/27/2009 ESPAÑA ACCOUNTS ADMINISTRATOR, ZORAIDA R 788.41 Urinary Frequency 10/27/2009 305.1 NICOTINE DEPENDENCE 10/27/2009 307.40 Insomnia 10/27/2009 536.8 Dyspepsia And Other Specified Disorders Of Function Of Stomach 10/27/2009 788.41 Urinary Frequency 10/27/2009 SALLY ACCOUNTS ADMINISTRATOR, VALERIE S 305.1 NICOTINE DEPENDENCE 10/27/2009 SALLY ACCOUNTS ADMINISTRATOR, VALERIE S 307.40 Insomnia 10/27/2009 SALLY ACCOUNTS ADMINISTRATOR, VALERIE S 536.8 Dyspepsia And Other Specified Disorders Of Function Of Stomach 10/27/2009 SALLY ACCOUNTS ADMINISTRATOR, VALERIE S 788.41 Urinary Frequency 10/27/2009 YATES DO, KARO K 305.1 NICOTINE DEPENDENCE 10/27/2009 YATES DO, KARO K 307.40 Insomnia 10/27/2009 YATES DO, KARO K 536.8 Dyspepsia And Other Specified Disorders Of Function Of Stomach 10/27/2009 YATES DO, KARO K 788.41 Urinary Frequency 10/27/2009 SALLY ACCOUNTS ADMINISTRATOR, VALERIE S 305.1 NICOTINE DEPENDENCE 10/27/2009 SALLY ACCOUNTS ADMINISTRATOR, VALERIE S 307.40 Insomnia 10/27/2009 SALLY ACCOUNTS ADMINISTRATOR, VALERIE S 536.8 Dyspepsia And Other Specified Disorders Of Function Of Stomach 10/27/2009 SALLY ACCOUNTS ADMINISTRATOR, VALERIE S 788.41 Urinary Frequency 10/27/2009 SALLY ACCOUNTS ADMINISTRATOR, VALERIE S 305.1 NICOTINE DEPENDENCE 10/27/2009 SALLY ACCOUNTS ADMINISTRATOR, VALERIE S 307.40 Insomnia 10/27/2009 SALLY ACCOUNTS ADMINISTRATOR, VALERIE S 536.8 Dyspepsia And Other Specified Disorders Of Function Of Stomach 10/27/2009 SALLY ACCOUNTS ADMINISTRATOR, VALERIE S 788.41 Urinary Frequency 10/27/2009 YATES [...] CAMARGO MD 788.41 Urinary Frequency 10/27/2009 SALLY ACCOUNTS ADMINISTRATOR, VALERIE S 305.1 NICOTINE DEPENDENCE 10/27/2009 SALLY PERSAUDN, VALERIE S 307.40 Insomnia 10/27/2009 SALLY ACCOUNTS ADMINISTRATOR, VALERIE S 536.8 Dyspepsia And Other Specified Disorders Of Function Of Stomach 10/27/2009 SALLY ACCOUNTS ADMINISTRATOR, VALERIE S 788.41 Urinary Frequency 10/27/2009 SALLY ACCOUNTS ADMINISTRATOR, VALERIE S 305.1 NICOTINE DEPENDENCE 10/27/2009 SALLY ACCOUNTS ADMINISTRATOR, VALERIE S 307.40 Insomnia 10/27/2009 SALLY ACCOUNTS ADMINISTRATOR, VALERIE S 536.8 Dyspepsia And Other Specified Disorders Of Function Of Stomach 10/27/2009 SALLY ACCOUNTS ADMINISTRATOR, VALERIE S 788.41 Urinary Frequency 10/27/2009 YATES DO, KARO K 305.1 NICOTINE DEPENDENCE 10/27/2009 YATES DO, KARO K 307.40 Insomnia 10/27/2009 YATES DO, KARO K 536.8 Dyspepsia And Other Specified Disorders Of Function Of Stomach 10/27/2009 YATES DO, KARO K 788.41 Urinary Frequency 10/27/2009 SALLY ACCOUNTS ADMINISTRATOR, VALERIE S 305.1 NICOTINE DEPENDENCE 10/27/2009 SALLY ACCOUNTS ADMINISTRATOR, VALERIE S 307.40 Insomnia 10/27/2009 SALLY ACCOUNTS ADMINISTRATOR, VALERIE S 536.8 Dyspepsia And Other Specified Disorders Of Function Of Stomach 10/27/2009 SALLY ACCOUNTS ADMINISTRATOR, VALERIE S 788.41 Urinary Frequency 10/27/2009 YATES DO, KARO K 305.1 NICOTINE DEPENDENCE 10/27/2009 YATES DO, KARO K 307.40 Insomnia 10/27/2009 YATES DO, KARO K 536.8 Dyspepsia And Other Specified Disorders Of Function Of Stomach 10/27/2009 YATES DO, KARO K 788.41 Urinary Frequency 10/27/2009 SALLY ACCOUNTS ADMINISTRATOR, VALERIE S 305.1 NICOTINE DEPENDENCE 10/27/2009 SALLY ACCOUNTS ADMINISTRATOR, VALERIE S 307.40 Insomnia 10/27/2009 SALLY ACCOUNTS ADMINISTRATOR, VALERIE S 536.8 Dyspepsia And Other Specified Disorders Of Function Of Stomach 10/27/2009 SALLY ACCOUNTS ADMINISTRATOR, VALERIE S 788.41 Urinary Frequency 10/27/2009 SALLY ACCOUNTS ADMINISTRATOR, VALERIE S 305.1 NICOTINE DEPENDENCE 10/27/2009 SALLY ACCOUNTS ADMINISTRATOR, VALERIE S 307.40 Insomnia 10/27/2009 SALLY ACCOUNTS ADMINISTRATOR, VALERIE S 536.8 Dyspepsia And Other Specified Disorders Of Function Of Stomach 10/27/2009 SALLY ACCOUNTS ADMINISTRATOR, VALERIE S 788.41 Urinary Frequency 10/27/2009 SALLY ACCOUNTS ADMINISTRATOR, VALERIE S 305.1 NICOTINE DEPENDENCE 10/27/2009 SALLY ACCOUNTS ADMINISTRATOR, VALERIE S 307.40 Insomnia 10/27/2009 SALLY ACCOUNTS ADMINISTRATOR, VALERIE S 536.8 Dyspepsia And Other Specified Disorders Of Function Of Stomach 10/27/2009 SALLY ACCOUNTS ADMINISTRATOR, VALERIE S 788.41 Urinary Frequency 10/27/2009 SALLY ACCOUNTS ADMINISTRATOR, VALERIE S 305.1 NICOTINE DEPENDENCE 10/27/2009 SALLY ACCOUNTS ADMINISTRATOR, VALERIE S 307.40 Insomnia 10/27/2009 SALLY ACCOUNTS ADMINISTRATOR, VALERIE S 536.8 Dyspepsia And Other Specified Disorders Of Function Of Stomach 10/27/2009 SALLY ACCOUNTS ADMINISTRATOR, VALERIE S 788.41 Urinary Frequency 10/27/2009 SALLY ACCOUNTS ADMINISTRATOR, VALERIE S 305.1 NICOTINE DEPENDENCE 10/27/2009 SALLY ACCOUNTS ADMINISTRATOR, VALERIE S 307.40 Insomnia 10/27/2009 SALLY ACCOUNTS ADMINISTRATOR, VALERIE S 536.8 Dyspepsia And Other Specified Disorders Of Function Of Stomach 10/27/2009 SALLY ACCOUNTS ADMINISTRATOR, VALERIE S 788.41 Urinary Frequency 10/27/2009 SALLY ACCOUNTS ADMINISTRATOR, VALERIE S 305.1 NICOTINE DEPENDENCE 10/27/2009 SALLY ACCOUNTS ADMINISTRATOR, VALERIE S 307.40 Insomnia 10/27/2009 SALLY ACCOUNTS ADMINISTRATOR, VALERIE S 536.8 Dyspepsia And Other Specified Disorders Of Function Of Stomach 10/27/2009 SALLY ACCOUNTS ADMINISTRATOR, VALERIE S 788.41 Urinary Frequency 10/27/2009 SALLY ACCOUNTS ADMINISTRATOR, VALERIE S 305.1 NICOTINE DEPENDENCE 10/27/2009 SALLY ACCOUNTS ADMINISTRATOR, VALERIE S 307.40 Insomnia 10/27/2009 SALLY ACCOUNTS ADMINISTRATOR, VALERIE S 536.8 Dyspepsia And Other Specified Disorders Of Function Of Stomach 10/27/2009 SALLY ACCOUNTS ADMINISTRATOR, VALERIE S 788.41 Urinary Frequency 10/27/2009 YATES DO, KARO K 305.1 NICOTINE DEPENDENCE 10/27/2009 YATES DO, KARO K 307.40 Insomnia 10/27/2009 YATES DO, KARO K 536.8 Dyspepsia And Other Specified Disorders Of Function Of Stomach 10/27/2009 YATES DO, KARO K 788.41 Urinary Frequency 10/27/2009 SALLY ACCOUNTS ADMINISTRATOR, VALERIE S 305.1 NICOTINE DEPENDENCE 10/27/2009 SALLY ACCOUNTS ADMINISTRATOR, VALERIE S 307.40 Insomnia 10/27/2009 SALLY ACCOUNTS ADMINISTRATOR, VALERIE S 536.8 Dyspepsia And Other Specified Disorders Of Function Of Stomach 10/27/2009 SALLY ACCOUNTS ADMINISTRATOR, VALERIE S 788.41 Urinary Frequency 10/27/2009 YATES DO, KARO K 305.1 NICOTINE DEPENDENCE 10/27/2009 YATES DO, KARO K 307.40 Insomnia 10/27/2009 YATES DO, KARO K 536.8 Dyspepsia And Other Specified Disorders Of Function Of Stomach 10/27/2009 YATES DO, KARO K 788.41 Urinary Frequency 10/27/2009 SALLY ACCOUNTS ADMINISTRATOR, VALERIE S 305.1 NICOTINE DEPENDENCE 10/27/2009 SALLY ACCOUNTS ADMINISTRATOR, VALERIE S 307.40 Insomnia 10/27/2009 SALLY ACCOUNTS ADMINISTRATOR, VALERIE S 536.8 Dyspepsia And Other Specified Disorders Of Function Of Stomach 10/27/2009 SALLY ACCOUNTS ADMINISTRATOR, VALERIE S 788.41 Urinary Frequency 10/27/2009 SALLY ACCOUNTS ADMINISTRATOR, VALERIE S 305.1 NICOTINE DEPENDENCE 10/27/2009 SALLY ACCOUNTS ADMINISTRATOR, VALERIE S 307.40 Insomnia 10/27/2009 SALLY ACCOUNTS ADMINISTRATOR, VALERIE S 536.8 Dyspepsia And Other Specified Disorders Of Function Of Stomach 10/27/2009 SALLY ACCOUNTS ADMINISTRATOR, VALERIE S 788.41 Urinary Frequency 10/27/2009 SALLY ACCOUNTS ADMINISTRATOR, VALERIE S 305.1 NICOTINE DEPENDENCE 10/27/2009 SALLY ACCOUNTS ADMINISTRATOR, VALERIE S 307.40 Insomnia 10/27/2009 SALLY ACCOUNTS ADMINISTRATOR, VALERIE S 536.8 Dyspepsia And Other Specified Disorders Of Function Of Stomach 10/27/2009 SALLY ACCOUNTS ADMINISTRATOR, VALERIE S 788.41 Urinary Frequency 10/27/2009 YATES DO, KARO K 305.1 NICOTINE DEPENDENCE 10/27/2009 YATES DO, KARO K 307.40 Insomnia 10/27/2009 YATES DO, KARO K 536.8 Dyspepsia And Other Specified Disorders Of Function Of Stomach 10/27/2009 YATES DO, KARO K 788.41 Urinary Frequency 10/27/2009 SALLY ACCOUNTS ADMINISTRATOR, VALERIE S 305.1 NICOTINE DEPENDENCE 10/27/2009 SALLY ACCOUNTS ADMINISTRATOR, VALERIE S 307.40 Insomnia 10/27/2009 SALLY ACCOUNTS ADMINISTRATOR, VALERIE S 536.8 Dyspepsia And Other Specified Disorders Of Function Of Stomach 10/27/2009 SALLY ACCOUNTS ADMINISTRATOR, VALERIE S 788.41 Urinary Frequency 12/03/2009 YATES DO, KARO K 564.00 Constipation 12/03/2009 YATES DO, KARO K 564.00 Constipation 12/03/2009 ZORAIDA ESPAÑA APRN R 564.00 Constipation 12/03/2009 564.00 Constipation 12/03/2009 SALLY ACCOUNTS ADMINISTRATOR, VALERIE S 564.00 Constipation 12/03/2009 YATES DO, KARO K 564.00 Constipation 12/03/2009 SALLY ACCOUNTS ADMINISTRATOR, VALERIE S 564.00 Constipation 12/03/2009 SALLY ACCOUNTS ADMINISTRATOR, VALERIE S 564.00 Constipation 12/03/2009 YATES DO KARO K 564.00 Constipation 12/03/2009 564.00 Constipation 12/03/2009 564.00 Constipation 12/03/2009 564.00 Constipation 12/03/2009 MICHELLE CAMARGO MD 564.00 Constipation 12/03/2009 SALLY ACCOUNTS ADMINISTRATOR, VALERIE S 564.00 Constipation 12/03/2009 SALLY ACCOUNTS ADMINISTRATOR, VALERIE S 564.00 Constipation 12/03/2009 YATES DO, KARO K 564.00 Constipation 12/03/2009 SALLY ACCOUNTS ADMINISTRATOR, VALERIE S 564.00 Constipation 12/03/2009 YATES DO, KARO K 564.00 Constipation 12/03/2009 SALLY ACCOUNTS ADMINISTRATOR, VALERIE S 564.00 Constipation 12/03/2009 SALLY ACCOUNTS ADMINISTRATOR, VALERIE S 564.00 Constipation 12/03/2009 SALLY ACCOUNTS ADMINISTRATOR, VALERIE S 564.00 Constipation 12/03/2009 SALLY ACCOUNTS ADMINISTRATOR, VALERIE S 564.00 Constipation 12/03/2009 SALLY ACCOUNTS ADMINISTRATOR, VALERIE S 564.00 Constipation 12/03/2009 SALLY ACCOUNTS ADMINISTRATOR, VALERIE S 564.00 Constipation 12/03/2009 SALLY ACCOUNTS ADMINISTRATOR, VALERIE S 564.00 Constipation 12/03/2009 YATES DO KARO K 564.00 Constipation 12/03/2009 SALLY ACCOUNTS ADMINISTRATOR, VALERIE S 564.00 Constipation 12/03/2009 YATES DO, KARO K 564.00 Constipation 12/03/2009 SALLY ACCOUNTS ADMINISTRATOR, VALERIE S 564.00 Constipation 12/03/2009 SALLY ACCOUNTS ADMINISTRATOR, VALERIE S 564.00 Constipation 12/03/2009 SALLY ACCOUNTS ADMINISTRATOR, VALERIE S 564.00 Constipation 12/03/2009 YATES DO, KARO K 564.00 Constipation 12/03/2009 SALLY ACCOUNTS ADMINISTRATOR, VALERIE S 564.00 Constipation 02/22/2010 Ot 530.81 02/22/2010 Ot 789.09 02/22/2010 Ot V12.72 05/11/2010 YATES DO, KARO K 724.5 Back Pain, General 05/11/2010 YATES DO KARO K 724.5 Back Pain, General 05/11/2010 ZORAIDA ESPAÑA APRN 724.5 Back Pain, General 05/11/2010 724.5 Back Pain, General 05/11/2010 SALLY ACCOUNTS ADMINISTRATOR VALERIE S 724.5 Back Pain, General 05/11/2010 YATES DO KARO K 724.5 Back Pain, General 05/11/2010 SALLY ACCOUNTS ADMINISTRATOR, VALERIE S 724.5 Back Pain, General 05/11/2010 SALLY ACCOUNTS ADMINISTRATOR, VALERIE S 724.5 Back Pain, General 05/11/2010 YATES DO KARO K 724.5 Back Pain, General 05/11/2010 724.5 Back Pain, General 05/11/2010 724.5 Back Pain, General 05/11/2010 724.5 Back Pain, General 05/11/2010 MARY JO ABRAMS, MICHELLE 724.5 Back Pain, General 05/11/2010 SALLY ACCOUNTS ADMINISTRATOR, VALERIE S 724.5 Back Pain, General 05/11/2010 SALLY ACCOUNTS ADMINISTRATOR, VALERIE S 724.5 Back Pain, General 05/11/2010 YATES DO KARO K 724.5 Back Pain, General 05/11/2010 SALLY ACCOUNTS ADMINISTRATOR, VALERIE S 724.5 Back Pain, General 05/11/2010 YATES DO KARO K 724.5 Back Pain, General 05/11/2010 SALLY ACCOUNTS ADMINISTRATOR, VALERIE S 724.5 Back Pain, General 05/11/2010 SALLY ACCOUNTS ADMINISTRATOR, VALERIE S 724.5 Back Pain, General 05/11/2010 SALLY ACCOUNTS ADMINISTRATOR, VALERIE S 724.5 Back Pain, General 05/11/2010 SALLY ACCOUNTS ADMINISTRATOR, VALERIE S 724.5 Back Pain, General 05/11/2010 SALLY ACCOUNTS ADMINISTRATOR, VALERIE S 724.5 Back Pain, General 05/11/2010 SALLY ACCOUNTS ADMINISTRATOR, VALERIE S 724.5 Back Pain, General 05/11/2010 SALLY ACCOUNTS ADMINISTRATOR, VALERIE S 724.5 Back Pain, General 05/11/2010 YATES DO, KARO K 724.5 Back Pain, General 05/11/2010 SALLY ACCOUNTS ADMINISTRATOR, VALERIE S 724.5 Back Pain, General 05/11/2010 YATES DO, KARO K 724.5 Back Pain, General 05/11/2010 SALLY ACCOUNTS ADMINISTRATOR, VALERIE S 724.5 Back Pain, General 05/11/2010 SALLY ACCOUNTS ADMINISTRATOR, VALERIE S 724.5 Back Pain, General 05/11/2010 SALLY ACCOUNTS ADMINISTRATOR, VALERIE S 724.5 Back Pain, General 05/11/2010 YATES DO, KARO K 724.5 Back Pain, General 05/11/2010 SALLY ACCOUNTS ADMINISTRATOR, VALERIE S 724.5 Back Pain, General 05/21/2010 YATES DO KARO K 627.9 Menopausal And Postmenopausal Disorder Unspecified 05/21/2010 YATES DO KARO K 722.10 Displacement Of Lumbar Intervertebral Disc Without Myelopathy 05/21/2010 YATES DO KARO K V72.31 Economic Development Coordinator Exam, Routine 05/21/2010 YATES DO KARO K 627.9 Menopausal And Postmenopausal Disorder Unspecified 05/21/2010 YATES DO KARO K 722.10 Displacement Of Lumbar Intervertebral Disc Without Myelopathy 05/21/2010 YATES DO KARO K V72.31 Economic Development Coordinator Exam, Routine 05/21/2010 ZORAIDA ESPAÑA APRN R 627.9 Menopausal And Postmenopausal Disorder Unspecified 05/21/2010 ZORAIDA ESPAÑA APRN R 722.10 Displacement Of Lumbar Intervertebral Disc Without Myelopathy 05/21/2010 ZORAIDA ESPAÑA APRN V72.31 Economic Development Coordinator Exam, Routine 05/21/2010 627.9 Menopausal And Postmenopausal Disorder Unspecified 05/21/2010 722.10 Displacement Of Lumbar Intervertebral Disc Without Myelopathy 05/21/2010 V72.31 Economic Development Coordinator Exam, Routine 05/21/2010 SALLY ACCOUNTS ADMINISTRATOR VALERIE S 627.9 Menopausal And Postmenopausal Disorder Unspecified 05/21/2010 SALLY ACCOUNTS ADMINISTRATOR VALERIE S 722.10 Displacement Of Lumbar Intervertebral Disc Without Myelopathy 05/21/2010 SALLY ACCOUNTS ADMINISTRATOR VALERIE S V72.31 Economic Development Coordinator Exam, Routine 05/21/2010 YATES DO KARO K 627.9 Menopausal And Postmenopausal Disorder Unspecified 05/21/2010 YATES DO KARO K 722.10 Displacement Of Lumbar Intervertebral Disc Without Myelopathy 05/21/2010 YATES DO KARO K V72.31 Economic Development Coordinator Exam, Routine 05/21/2010 SALLY ACCOUNTS ADMINISTRATOR VALERIE S 627.9 Menopausal And Postmenopausal Disorder Unspecified 05/21/2010 SALLY ACCOUNTS ADMINISTRATOR VALERIE S 722.10 Displacement Of Lumbar Intervertebral Disc Without Myelopathy 05/21/2010 SALLY ACCOUNTS ADMINISTRATOR VALERIE S V72.31 Economic Development Coordinator Exam, Routine 05/21/2010 SALLY ACCOUNTS ADMINISTRATOR VALERIE S 627.9 Menopausal And Postmenopausal Disorder Unspecified 05/21/2010 SALLY ACCOUNTS ADMINISTRATOR, VALERIE S 722.10 Displacement Of Lumbar Intervertebral Disc Without Myelopathy 05/21/2010 SALLY ACCOUNTS ADMINISTRATOR VALERIE S V72.31 Economic Development Coordinator Exam, Routine 05/21/2010 MILAN DO KARO K 627.9 Menopausal And Postmenopausal Disorder Unspecified 05/21/2010 YATES DO KARO K 722.10 Displacement Of Lumbar Intervertebral Disc Without Myelopathy 05/21/2010 YATES DO KARO K V72.31 Economic Development Coordinator Exam, Routine 05/21/2010 627.9 Menopausal And Postmenopausal Disorder Unspecified 05/21/2010 722.10 Displacement Of Lumbar Intervertebral Disc Without Myelopathy 05/21/2010 V72.31 Economic Development Coordinator Exam, Routine 05/21/2010 627.9 Menopausal And Postmenopausal Disorder Unspecified 05/21/2010 722.10 Displacement Of Lumbar Intervertebral Disc Without Myelopathy 05/21/2010 V72.31 Economic Development Coordinator Exam, Routine 05/21/2010 627.9 Menopausal And Postmenopausal Disorder Unspecified 05/21/2010 722.10 Displacement Of Lumbar Intervertebral Disc Without Myelopathy 05/21/2010 V72.31 Economic Development Coordinator Exam, Routine 05/21/2010 MICHELLE CAMARGO MD 627.9 Menopausal And Postmenopausal Disorder Unspecified 05/21/2010 MICHELLE CAMARGO MD 722.10 Displacement Of Lumbar Intervertebral Disc Without Myelopathy 05/21/2010 MICHELLE CAMARGO MD V72.31 Economic Development Coordinator Exam, Routine 05/21/2010 SALLY ACCOUNTS ADMINISTRATOR, VALERIE S 627.9 Menopausal And Postmenopausal Disorder Unspecified 05/21/2010 SALLY ACCOUNTS ADMINISTRATOR, VALERIE S 722.10 Displacement Of Lumbar Intervertebral Disc Without Myelopathy 05/21/2010 SALLY ACCOUNTS ADMINISTRATOR, VALERIE S V72.31 Economic Development Coordinator Exam, Routine 05/21/2010 SALLY ACCOUNTS ADMINISTRATOR, VALERIE S 627.9 Menopausal And Postmenopausal Disorder Unspecified 05/21/2010 SALLY ACCOUNTS ADMINISTRATOR, VALERIE S 722.10 Displacement Of Lumbar Intervertebral Disc Without Myelopathy 05/21/2010 SALLY ACCOUNTS ADMINISTRATOR, VALERIE S V72.31 Economic Development Coordinator Exam, Routine 05/21/2010 YATES DO, KARO K 627.9 Menopausal And Postmenopausal Disorder Unspecified 05/21/2010 YATES DO, KARO K 722.10 Displacement Of Lumbar Intervertebral Disc Without Myelopathy 05/21/2010 YATES DO, KARO K V72.31 Economic Development Coordinator Exam, Routine 05/21/2010 SALLY ACCOUNTS ADMINISTRATOR, VALERIE S 627.9 Menopausal And Postmenopausal Disorder Unspecified 05/21/2010 SALLY ACCOUNTS ADMINISTRATOR, VALERIE S 722.10 Displacement Of Lumbar Intervertebral Disc Without Myelopathy 05/21/2010 SALLY ACCOUNTS ADMINISTRATOR, VALERIE S V72.31 Economic Development Coordinator Exam, Routine 05/21/2010 YATES DO, KARO K 627.9 Menopausal And Postmenopausal Disorder Unspecified 05/21/2010 YATES DO, KARO K 722.10 Displacement Of Lumbar Intervertebral Disc Without Myelopathy 05/21/2010 YATES DO, KARO K V72.31 Economic Development Coordinator Exam, Routine 05/21/2010 SALLY ACCOUNTS ADMINISTRATOR, VALERIE S 627.9 Menopausal And Postmenopausal Disorder Unspecified 05/21/2010 SALLY ACCOUNTS ADMINISTRATOR, VALERIE S 722.10 Displacement Of Lumbar Intervertebral Disc Without Myelopathy 05/21/2010 SALLY ACCOUNTS ADMINISTRATOR, VALERIE S V72.31 Economic Development Coordinator Exam, Routine 05/21/2010 SALLY ACCOUNTS ADMINISTRATOR, VALERIE S 627.9 Menopausal And Postmenopausal Disorder Unspecified 05/21/2010 SALLY ACCOUNTS ADMINISTRATOR, VALERIE S 722.10 Displacement Of Lumbar Intervertebral Disc Without Myelopathy 05/21/2010 SALLY ACCOUNTS ADMINISTRATOR, VALERIE S V72.31 Economic Development Coordinator Exam, Routine 05/21/2010 SALLY ACCOUNTS ADMINISTRATOR, VALERIE S 627.9 Menopausal And Postmenopausal Disorder Unspecified 05/21/2010 SALLY ACCOUNTS ADMINISTRATOR, VALERIE S 722.10 Displacement Of Lumbar Intervertebral Disc Without Myelopathy 05/21/2010 SALLY ACCOUNTS ADMINISTRATOR, VALERIE S V72.31 Economic Development Coordinator Exam, Routine 05/21/2010 SALLY ACCOUNTS ADMINISTRATOR, VALERIE S 627.9 Menopausal And Postmenopausal Disorder Unspecified 05/21/2010 SALLY ACCOUNTS ADMINISTRATOR, VALERIE S 722.10 Displacement Of Lumbar Intervertebral Disc Without Myelopathy 05/21/2010 SALLY ACCOUNTS ADMINISTRATOR, VALERIE S V72.31 Economic Development Coordinator Exam, Routine 05/21/2010 SALLY ACCOUNTS ADMINISTRATOR, VALERIE S 627.9 Menopausal And Postmenopausal Disorder Unspecified 05/21/2010 SALLY ACCOUNTS ADMINISTRATOR, VALERIE S 722.10 Displacement Of Lumbar Intervertebral Disc Without Myelopathy 05/21/2010 SALLY ACCOUNTS ADMINISTRATOR, VALERIE S V72.31 Economic Development Coordinator Exam, Routine 05/21/2010 SALLY ACCOUNTS ADMINISTRATOR, VALERIE S 627.9 Menopausal And Postmenopausal Disorder Unspecified 05/21/2010 SALLY ACCOUNTS ADMINISTRATOR, VALERIE S 722.10 Displacement Of Lumbar Intervertebral Disc Without Myelopathy 05/21/2010 SALLY ACCOUNTS ADMINISTRATOR, VALERIE S V72.31 Economic Development Coordinator Exam, Routine 05/21/2010 SALLY ACCOUNTS ADMINISTRATOR, VALERIE S 627.9 Menopausal And Postmenopausal Disorder Unspecified 05/21/2010 SALLY ACCOUNTS ADMINISTRATOR, VALERIE S 722.10 Displacement Of Lumbar Intervertebral Disc Without Myelopathy 05/21/2010 SALLY ACCOUNTS ADMINISTRATOR, VALERIE S V72.31 Economic Development Coordinator Exam, Routine 05/21/2010 KARO YATES DO K 627.9 Menopausal And Postmenopausal Disorder Unspecified 05/21/2010 YATES DO, KARO K 722.10 Displacement Of Lumbar Intervertebral Disc Without Myelopathy 05/21/2010 YATES DO, KARO K V72.31 Economic Development Coordinator Exam, Routine 05/21/2010 SALLY ACCOUNTS ADMINISTRATOR, VALERIE S 627.9 Menopausal And Postmenopausal Disorder Unspecified 05/21/2010 SALLY ACCOUNTS ADMINISTRATOR, VALERIE S 722.10 Displacement Of Lumbar Intervertebral Disc Without Myelopathy 05/21/2010 SALLY ACCOUNTS ADMINISTRATOR, VALERIE S V72.31 Economic Development Coordinator Exam, Routine 05/21/2010 YATES DO, KARO K 627.9 Menopausal And Postmenopausal Disorder Unspecified 05/21/2010 YATES DO, KARO K 722.10 Displacement Of Lumbar Intervertebral Disc Without Myelopathy 05/21/2010 YATES DO, KARO K V72.31 Economic Development Coordinator Exam, Routine 05/21/2010 SALLY ACCOUNTS ADMINISTRATOR, VALERIE S 627.9 Menopausal And Postmenopausal Disorder Unspecified 05/21/2010 SALLY ACCOUNTS ADMINISTRATOR, VALERIE S 722.10 Displacement Of Lumbar Intervertebral Disc Without Myelopathy 05/21/2010 SALLY ACCOUNTS ADMINISTRATOR, VALERIE S V72.31 Economic Development Coordinator Exam, Routine 05/21/2010 SALLY ACCOUNTS ADMINISTRATOR, VALERIE S 627.9 Menopausal And Postmenopausal Disorder Unspecified 05/21/2010 SALLY ACCOUNTS ADMINISTRATOR, VALERIE S 722.10 Displacement Of Lumbar Intervertebral Disc Without Myelopathy 05/21/2010 SALLY ACCOUNTS ADMINISTRATOR, VALERIE S V72.31 Economic Development Coordinator Exam, Routine 05/21/2010 SALLY ACCOUNTS ADMINISTRATOR, VALERIE S 627.9 Menopausal And Postmenopausal Disorder Unspecified 05/21/2010 SALLY ACCOUNTS ADMINISTRATOR, VALERIE S 722.10 Displacement Of Lumbar Intervertebral Disc Without Myelopathy 05/21/2010 SALLY ACCOUNTS ADMINISTRATOR, VALERIE S V72.31 Economic Development Coordinator Exam, Routine 05/21/2010 YATES DO, KARO K 627.9 Menopausal And Postmenopausal Disorder Unspecified 05/21/2010 YATES DO, KARO K 722.10 Displacement Of Lumbar Intervertebral Disc Without Myelopathy 05/21/2010 YATES DO, KARO K V72.31 Economic Development Coordinator Exam, Routine 05/21/2010 SALLY ACCOUNTS ADMINISTRATOR, VALERIE S 627.9 Menopausal And Postmenopausal Disorder Unspecified 05/21/2010 VALERIE ZAVALA APRN S 722.10 Displacement Of Lumbar Intervertebral Disc Without Myelopathy 05/21/2010 ADRIAN ZAVALA APRNA S V72.31 Economic Development Coordinator Exam, Routine 06/23/2010 MILAN RAMIREZ KARO K [...] S V68.1 Issue Of Repeat Prescriptions 06/23/2010 VALEREI ZAVALA APRN S V68.1 Issue Of Repeat [...] Other Slipping Tripping Or Stumbling 10/13/2010 SALLY ACCOUNTS ADMINISTRATOR, VALERIE S 719.46 Knee Pain 10/13/2010 SALLY ACCOUNTS ADMINISTRATORSERINAVALERIE S E885.9 Accidental Fall From Other Slipping Tripping Or Stumbling 10/13/2010 YATES DOHALEYA K 719.46 Knee Pain 10/13/2010 YATES DO KARO K E885.9 Accidental Fall From Other Slipping Tripping Or Stumbling 10/13/2010 SALLY ACCOUNTS ADMINISTRATOR VALERIE S 719.46 Knee Pain 10/13/2010 SALLY ACCOUNTS ADMINISTRATORSERINAVALERIE S E885.9 Accidental Fall From Other Slipping Tripping Or Stumbling 10/13/2010 SALLY ACCOUNTS ADMINISTRATOR, VALERIE S 719.46 Knee Pain 10/13/2010 SALLY ACCOUNTS ADMINISTRATOR, VALERIE S E885.9 Accidental Fall From Other [...] Other Slipping Tripping Or Stumbling 10/13/2010 SALLY ACCOUNTS ADMINISTRATOR, VALERIE S 719.46 Knee Pain 10/13/2010 SERINA ZAVALA APRNNDA S E885.9 Accidental Fall From Other Slipping Tripping Or Stumbling 10/13/2010 YATES DO, KARO K 719.46 Knee Pain 10/13/2010 YATES DO, KARO K E885.9 Accidental Fall From Other Slipping Tripping Or Stumbling 10/13/2010 SALLY ACCOUNTS ADMINISTRATOR, VALERIE S 719.46 Knee Pain 10/13/2010 SALLY ACCOUNTS ADMINISTRATOR, VALERIE S E885.9 Accidental Fall From Other Slipping Tripping Or Stumbling 10/13/2010 YATES DO, KARO K 719.46 Knee Pain 10/13/2010 YATES DO, KARO K E885.9 Accidental Fall From Other Slipping Tripping Or Stumbling 10/13/2010 SALLY ACCOUNTS ADMINISTRATOR, VALERIE S 719.46 Knee Pain 10/13/2010 SALLY ACCOUNTS ADMINISTRATOR, VALERIE S E885.9 Accidental Fall From Other Slipping Tripping Or Stumbling 10/13/2010 SALLY ACCOUNTS ADMINISTRATOR, VALERIE S 719.46 Knee Pain 10/13/2010 SALLY ACCOUNTS ADMINISTRATOR, VALERIE S E885.9 Accidental Fall From Other Slipping Tripping Or Stumbling 10/13/2010 SALLY ACCOUNTS ADMINISTRATOR, VALERIE S 719.46 Knee Pain 10/13/2010 SALLY ACCOUNTS ADMINISTRATOR, VALERIE S E885.9 Accidental Fall From Other Slipping Tripping Or Stumbling 10/13/2010 SALLY ACCOUNTS ADMINISTRATOR, VALERIE S 719.46 Knee Pain 10/13/2010 SALLY ACCOUNTS ADMINISTRATOR, VALERIE S E885.9 Accidental Fall From Other Slipping Tripping Or Stumbling 10/13/2010 SALLY ACCOUNTS ADMINISTRATOR, VALERIE S 719.46 Knee Pain 10/13/2010 SALLY ACCOUNTS ADMINISTRATOR, VALERIE S E885.9 Accidental Fall From Other Slipping Tripping Or Stumbling 10/13/2010 SALLY ACCOUNTS ADMINISTRATOR, VALERIE S 719.46 Knee Pain 10/13/2010 SALLY ACCOUNTS ADMINISTRATOR, VALERIE S E885.9 Accidental Fall From Other Slipping Tripping Or Stumbling 10/13/2010 SALLY ACCOUNTS ADMINISTRATOR, VALERIE S 719.46 Knee Pain 10/13/2010 SALLY ACCOUNTS ADMINISTRATOR, VALERIE S E885.9 Accidental Fall From Other Slipping Tripping Or Stumbling 10/13/2010 YATES DO, KARO K 719.46 Knee Pain 10/13/2010 YATES DO, KARO K E885.9 Accidental Fall From Other Slipping Tripping Or Stumbling 10/13/2010 SALLY ACCOUNTS ADMINISTRATOR VALERIE S 719.46 Knee Pain 10/13/2010 SALLY ACCOUNTS ADMINISTRATOR VALERIE S E885.9 Accidental Fall From Other Slipping Tripping Or Stumbling 10/13/2010 YATES DO KARO K 719.46 Knee Pain 10/13/2010 YATES DO KARO K E885.9 Accidental Fall From Other Slipping Tripping Or Stumbling 10/13/2010 SALLY ACCOUNTS ADMINISTRATOR VALERIE S 719.46 Knee Pain 10/13/2010 SALLY ACCOUNTS ADMINISTRATOR VALERIE S E885.9 Accidental Fall From Other Slipping Tripping Or Stumbling 10/13/2010 SALLY ACCOUNTS ADMINISTRATOR VALERIE S 719.46 Knee Pain 10/13/2010 SALLY ACCOUNTS ADMINISTRATOR VALERIE S E885.9 Accidental Fall From Other Slipping Tripping Or Stumbling 10/13/2010 SALLY ACCOUNTS ADMINISTRATOR VALERIE S 719.46 Knee Pain 10/13/2010 SALLY ACCOUNTS ADMINISTRATOR VALERIE S E885.9 Accidental Fall From Other Slipping Tripping Or Stumbling 10/13/2010 YATES DO KARO K 719.46 Knee Pain 10/13/2010 YATES DO KARO K E885.9 Accidental Fall From Other Slipping Tripping Or Stumbling 10/13/2010 SALLY ACCOUNTS ADMINISTRATOR VALERIE S 719.46 Knee Pain 10/13/2010 SALLY ACCOUNTS ADMINISTRATOR VALERIE S E885.9 Accidental Fall From Other Slipping Tripping Or Stumbling 11/07/2010 Ot 722.52 LUMB/ LUMBOSAC DISC DEGEN 11/07/2010 Ot 724.2 LUMBAGO 11/11/2010 YATES DO KARO K 401.1 HYPERTENSION, BENIGN ESSENTIAL 11/11/2010 YATES DO KARO K 401.1 HYPERTENSION, BENIGN ESSENTIAL 11/11/2010 ZORAIDA ESPAÑA APRN 401.1 HYPERTENSION, BENIGN ESSENTIAL 11/11/2010 401.1 HYPERTENSION, BENIGN ESSENTIAL 11/11/2010 SALLY ACCOUNTS ADMINISTRATOR, VALERIE S 401.1 HYPERTENSION, BENIGN ESSENTIAL 11/11/2010 YATES DO, KARO K 401.1 HYPERTENSION, BENIGN ESSENTIAL 11/11/2010 SALLY ACCOUNTS ADMINISTRATOR, VALERIE S 401.1 HYPERTENSION, BENIGN ESSENTIAL 11/11/2010 SALLY ACCOUNTS ADMINISTRATOR, VALERIE S 401.1 HYPERTENSION, BENIGN ESSENTIAL 11/11/2010 YATES DO, KARO K 401.1 HYPERTENSION, BENIGN ESSENTIAL 11/11/2010 401.1 HYPERTENSION, BENIGN ESSENTIAL 11/11/2010 401.1 HYPERTENSION, BENIGN ESSENTIAL 11/11/2010 401.1 HYPERTENSION, BENIGN ESSENTIAL 11/11/2010 MARY JO ABRAMS, MICHELLE 401.1 HYPERTENSION, BENIGN ESSENTIAL 11/11/2010 SALLY ACCOUNTS ADMINISTRATOR, VALERIE S 401.1 HYPERTENSION, BENIGN ESSENTIAL 11/11/2010 SALLY ACCOUNTS ADMINISTRATOR, VALERIE S 401.1 HYPERTENSION, BENIGN ESSENTIAL 11/11/2010 YATES DO, KARO K 401.1 HYPERTENSION, BENIGN ESSENTIAL 11/11/2010 SALLY ACCOUNTS ADMINISTRATOR, VALERIE S 401.1 HYPERTENSION, BENIGN ESSENTIAL 11/11/2010 YATES DO, KARO K 401.1 HYPERTENSION, BENIGN ESSENTIAL 11/11/2010 SALLY ACCOUNTS ADMINISTRATOR, VALERIE S 401.1 HYPERTENSION, BENIGN ESSENTIAL 11/11/2010 SALLY ACCOUNTS ADMINISTRATOR, VALERIE S 401.1 HYPERTENSION, BENIGN ESSENTIAL 11/11/2010 SALLY ACCOUNTS ADMINISTRATOR, VALERIE S 401.1 HYPERTENSION, BENIGN ESSENTIAL 11/11/2010 SALLY ACCOUNTS ADMINISTRATOR, VALERIE S 401.1 HYPERTENSION, BENIGN ESSENTIAL 11/11/2010 SALLY ACCOUNTS ADMINISTRATOR, VALERIE S 401.1 HYPERTENSION, BENIGN ESSENTIAL 11/11/2010 SALLY ACCOUNTS ADMINISTRATOR, VALERIE S 401.1 HYPERTENSION, BENIGN ESSENTIAL 11/11/2010 SALLY ACCOUNTS ADMINISTRATOR, VALERIE S 401.1 HYPERTENSION, BENIGN ESSENTIAL 11/11/2010 YATES DO, KARO K 401.1 HYPERTENSION, BENIGN ESSENTIAL 11/11/2010 SALLY ACCOUNTS ADMINISTRATOR, VALERIE S 401.1 HYPERTENSION, BENIGN ESSENTIAL 11/11/2010 YATES DO, KARO K 401.1 HYPERTENSION, BENIGN ESSENTIAL 11/11/2010 SALLY ACCOUNTS ADMINISTRATOR, VALERIE S 401.1 HYPERTENSION, BENIGN ESSENTIAL 11/11/2010 SALLY ACCOUNTS ADMINISTRATOR, VALERIE S 401.1 HYPERTENSION, BENIGN ESSENTIAL 11/11/2010 [...] (3 Yrs And Above, Im) 03/09/2011 VALERIE ZAAVLA APRN V04.81 Flu Dx (3 Yrs And [...] (3 Yrs And Above, Im) 03/09/2011 SALLY ACCOUNTS ADMINISTRATOR, VALERIE S V04.81 Flu Dx (3 Yrs And Above, Im) 03/09/2011 YATES DO, KARO K V04.81 Flu Dx (3 Yrs And Above, Im) 03/09/2011 SALLY ACCOUNTS ADMINISTRATOR, VALERIE S V04.81 Flu Dx (3 Yrs And Above, Im) 03/09/2011 YATES DO, KARO K V04.81 Flu Dx (3 Yrs And Above, Im) 03/09/2011 SALLY ACCOUNTS ADMINISTRATOR, VALERIE S V04.81 Flu Dx (3 Yrs And Above, Im) 03/09/2011 SALLY ACCOUNTS ADMINISTRATOR, VALERIE S V04.81 Flu Dx (3 Yrs And Above, Im) 03/09/2011 SALLY ACCOUNTS ADMINISTRATOR, VALERIE S V04.81 Flu Dx (3 Yrs And Above, Im) 03/09/2011 SALLY ACCOUNTS ADMINISTRATOR, VALERIE S V04.81 Flu Dx (3 Yrs And Above, Im) 03/09/2011 SALLY ACCOUNTS ADMINISTRATOR, VALERIE S V04.81 Flu Dx (3 Yrs And Above, Im) 03/09/2011 SALLY ACCOUNTS ADMINISTRATOR, VALERIE S V04.81 Flu Dx (3 Yrs And Above, Im) 03/09/2011 SALLY ACCOUNTS ADMINISTRATOR, VALERIE S V04.81 Flu Dx (3 Yrs And Above, Im) 03/09/2011 YATES DO, KARO K V04.81 Flu Dx (3 Yrs And Above, Im) 03/09/2011 SALLY ACCOUNTS ADMINISTRATOR, VALERIE S V04.81 Flu Dx (3 Yrs And Above, Im) 03/09/2011 YATES DO, KARO K V04.81 Flu Dx (3 Yrs And Above, Im) 03/09/2011 SALLY ACCOUNTS ADMINISTRATOR, VALERIE S V04.81 Flu Dx (3 Yrs And Above, Im) 03/09/2011 SALLY ACCOUNTS ADMINISTRATOR, VALERIE S V04.81 Flu Dx (3 Yrs And Above, Im) 03/09/2011 SALLY ACCOUNTS ADMINISTRATOR, VALERIE S V04.81 Flu Dx (3 Yrs And Above, Im) 03/09/2011 YATES DO, KARO K V04.81 Flu Dx (3 Yrs And Above, Im) 03/09/2011 SALLY ACCOUNTS ADMINISTRATOR, VALERIE S V04.81 Flu Dx (3 Yrs And Above, Im) 03/14/2011 YATES DO, KARO K 625.9 Pelvic Pain 03/14/2011 YATES DO, KARO K 791.0 Proteinuria 03/14/2011 YATES DO, KARO K 625.9 Pelvic Pain 03/14/2011 YATES DO, KARO K 791.0 Proteinuria 03/14/2011 [place] ACCOUNTS ADMINISTRATOR, ZORAIDA R 625.9 Pelvic Pain 03/14/2011 [place] ACCOUNTS ADMINISTRATOR, ZORAIDA R 791.0 Proteinuria 03/14/2011 625.9 Pelvic Pain 03/14/2011 791.0 Proteinuria 03/14/2011 SALLY ACCOUNTS ADMINISTRATOR, VALERIE S 625.9 Pelvic Pain 03/14/2011 SALLY ACCOUNTS ADMINISTRATOR, VALERIE S 791.0 Proteinuria 03/14/2011 YATES DO, KARO K 625.9 Pelvic Pain 03/14/2011 YATES DO, KARO K 791.0 Proteinuria 03/14/2011 SALLY ACCOUNTS ADMINISTRATOR, VALERIE S 625.9 Pelvic Pain 03/14/2011 SALLY ACCOUNTS ADMINISTRATOR, VALERIE S 791.0 Proteinuria 03/14/2011 SALLY ACCOUNTS ADMINISTRATOR, VALERIE S 625.9 Pelvic Pain 03/14/2011 SALLY ACCOUNTS ADMINISTRATOR, VALERIE S 791.0 Proteinuria 03/14/2011 YATES DO, KARO K 625.9 Pelvic Pain 03/14/2011 YATES DO, KARO K 791.0 Proteinuria 03/14/2011 625.9 Pelvic Pain 03/14/2011 791.0 Proteinuria 03/14/2011 625.9 Pelvic Pain 03/14/2011 791.0 Proteinuria 03/14/2011 625.9 Pelvic Pain 03/14/2011 791.0 Proteinuria 03/14/2011 MICHELLE CAMARGO MD 625.9 Pelvic Pain 03/14/2011 MICHELLE CAMARGO MD 791.0 Proteinuria 03/14/2011 SALLY ACCOUNTS ADMINISTRATOR, VALERIE S 625.9 Pelvic Pain 03/14/2011 SALLY ACCOUNTS ADMINISTRATOR, VALERIE S 791.0 Proteinuria 03/14/2011 SALLY ACCOUNTS ADMINISTRATOR, VALERIE S 625.9 Pelvic Pain 03/14/2011 SALLY ACCOUNTS ADMINISTRATOR, VALERIE S 791.0 Proteinuria 03/14/2011 YATES DO, KARO K 625.9 Pelvic Pain 03/14/2011 YATES DO, KARO K 791.0 Proteinuria 03/14/2011 SALLY ACCOUNTS ADMINISTRATOR, VALERIE S 625.9 Pelvic Pain 03/14/2011 SALLY ACCOUNTS ADMINISTRATOR, VALERIE S 791.0 Proteinuria 03/14/2011 YATES DO, KARO K 625.9 Pelvic Pain 03/14/2011 YATES DO, KARO K 791.0 Proteinuria 03/14/2011 SALLY ACCOUNTS ADMINISTRATOR, VALERIE S 625.9 Pelvic Pain 03/14/2011 SALLY ACCOUNTS ADMINISTRATOR, VALERIE S 791.0 Proteinuria 03/14/2011 SALLY ACCOUNTS ADMINISTRATOR, VALERIE S 625.9 Pelvic Pain 03/14/2011 SALLY ACCOUNTS ADMINISTRATOR, VALERIE S 791.0 Proteinuria 03/14/2011 SALLY ACCOUNTS ADMINISTRATOR, VALERIE S 625.9 Pelvic Pain 03/14/2011 SALLY ACCOUNTS ADMINISTRATOR, VALERIE S 791.0 Proteinuria 03/14/2011 SALLY ACCOUNTS ADMINISTRATOR, VALERIE S 625.9 Pelvic Pain 03/14/2011 SALLY ACCOUNTS ADMINISTRATOR, VALERIE S 791.0 Proteinuria 03/14/2011 SALLY ACCOUNTS ADMINISTRATOR, VALERIE S 625.9 Pelvic Pain 03/14/2011 SALLY ACCOUNTS ADMINISTRATOR, VALERIE S 791.0 Proteinuria 03/14/2011 SALLY ACCOUNTS ADMINISTRATOR, VALERIE S 625.9 Pelvic Pain 03/14/2011 SALLY ACCOUNTS ADMINISTRATOR, VALERIE S 791.0 Proteinuria 03/14/2011 SALLY ACCOUNTS ADMINISTRATOR, VALERIE S 625.9 Pelvic Pain 03/14/2011 SALLY ACCOUNTS ADMINISTRATOR, VALERIE S 791.0 Proteinuria 03/14/2011 YATES DO, KARO K 625.9 Pelvic Pain 03/14/2011 YATES DO, KARO K 791.0 Proteinuria 03/14/2011 SALLY ACCOUNTS ADMINISTRATOR, VALERIE S 625.9 Pelvic Pain 03/14/2011 SALLY ACCOUNTS ADMINISTRATOR, VALERIE S 791.0 Proteinuria 03/14/2011 YATES DO, KARO K 625.9 Pelvic Pain 03/14/2011 YATES DO, KARO K 791.0 Proteinuria 03/14/2011 SALLY ACCOUNTS ADMINISTRATOR, VALERIE S 625.9 Pelvic Pain 03/14/2011 SALLY ACCOUNTS ADMINISTRATOR, VALERIE S 791.0 Proteinuria 03/14/2011 SALLY ACCOUNTS ADMINISTRATOR, VALERIE S 625.9 Pelvic Pain 03/14/2011 SALLY ACCOUNTS ADMINISTRATOR, VALERIE S 791.0 Proteinuria 03/14/2011 SALLY ACCOUNTS ADMINISTRATOR, VALERIE S 625.9 Pelvic Pain 03/14/2011 SALLY ACCOUNTS ADMINISTRATOR, VALERIE S 791.0 Proteinuria 03/14/2011 YATES DO, KARO K 625.9 Pelvic Pain 03/14/2011 YATES DO, KARO K 791.0 Proteinuria 03/14/2011 SALLY ACCOUNTS ADMINISTRATOR, VALERIE S 625.9 Pelvic Pain 03/14/2011 SALLY ACCOUNTS ADMINISTRATOR, VALERIE S 791.0 Proteinuria 04/26/2011 Ot 614.6 [...] S 789.07 ABDOMINAL PAIN GENERALIZED 05/20/2011 SALLY ACCOUNTS ADMINISTRATOR, VALERIE S 300.02 AN GEN ANXIETY 05/20/2011 [...] S 300.02 AN GEN ANXIETY 05/20/2011 SALLY ACCOUNTS ADMINISTRATOR, VALERIE S 789.07 ABDOMINAL PAIN GENERALIZED 05/20/2011 SALLY ACCOUNTS ADMINISTRATOR, VALERIE S 300.02 AN GEN ANXIETY 05/20/2011 SALLY ACCOUNTS ADMINISTRATOR, VALERIE S 789.07 ABDOMINAL PAIN GENERALIZED 05/20/2011 SALLY ACCOUNTS ADMINISTRATOR, VALERIE S 300.02 AN GEN ANXIETY 05/20/2011 SALLY ACCOUNTS ADMINISTRATOR, VALERIE S 789.07 ABDOMINAL PAIN GENERALIZED 05/20/2011 SALLY PERSAUDN VALERIE S 300.02 AN GEN ANXIETY 05/20/2011 SALLY ACCOUNTS ADMINISTRATOR, VALERIE S 789.07 ABDOMINAL PAIN GENERALIZED 05/20/2011 YATES DO, KARO K 300.02 AN GEN ANXIETY 05/20/2011 YATES DO, KARO K 789.07 ABDOMINAL PAIN GENERALIZED 05/20/2011 SALLY PERSAUDN VALERIE S 300.02 AN GEN ANXIETY 05/20/2011 SALLY ACCOUNTS ADMINISTRATOR VALERIE S 789.07 ABDOMINAL PAIN GENERALIZED 05/20/2011 YATES DO, KARO K 300.02 AN GEN ANXIETY 05/20/2011 YATES DO, KARO K 789.07 ABDOMINAL PAIN GENERALIZED 05/20/2011 SALLY PERSAUDN, VALERIE S 300.02 AN GEN ANXIETY 05/20/2011 SALLYMARTY PERSAUDN, VALERIE S 789.07 ABDOMINAL PAIN GENERALIZED 05/20/2011 SALLYMARTY PERSAUDN VALERIE S 300.02 AN GEN ANXIETY 05/20/2011 SALLY ACCOUNTS ADMINISTRATOR VALERIE S 789.07 ABDOMINAL PAIN GENERALIZED 05/20/2011 SALLY ACCOUNTS ADMINISTRATOR VALERIE S 300.02 AN GEN ANXIETY 05/20/2011 SALLY PERSAUDN VALERIE S 789.07 ABDOMINAL PAIN GENERALIZED 05/20/2011 YATES DO, KARO K 300.02 AN GEN ANXIETY 05/20/2011 YATES DO, KARO K 789.07 ABDOMINAL PAIN GENERALIZED 05/20/2011 SALLY PERSAUDN VALERIE S 300.02 AN GEN ANXIETY 05/20/2011 SALLY ACCOUNTS ADMINISTRATOR, VALERIE S 789.07 ABDOMINAL PAIN GENERALIZED 06/09/2011 YATES DO, KARO K 796.2 Elevated Blood Pressure Reading Without Diagnosis Of Hypertension 06/09/2011 YATES DO, KARO K 796.2 Elevated Blood Pressure Reading Without Diagnosis Of Hypertension 06/09/2011 TACO RIVERA ZORAIDA R 796.2 Elevated Blood Pressure Reading Without Diagnosis Of Hypertension 06/09/2011 796.2 Elevated Blood Pressure Reading Without Diagnosis Of Hypertension 06/09/2011 SALLY ACCOUNTS ADMINISTRATOR, VALERIE S 796.2 Elevated Blood Pressure Reading Without Diagnosis Of Hypertension 06/09/2011 YATES DO KARO K 796.2 Elevated Blood Pressure Reading Without Diagnosis Of Hypertension 06/09/2011 SALLY ACCOUNTS ADMINISTRATOR, VALERIE S 796.2 Elevated Blood Pressure Reading Without Diagnosis Of Hypertension 06/09/2011 SALLY ACCOUNTS ADMINISTRATOR, VALERIE S 796.2 Elevated Blood Pressure Reading [...] Reading Without Diagnosis Of Hypertension 06/09/2011 SALLY ACCOUNTS ADMINISTRATOR, VALERIE S 796.2 Elevated Blood Pressure Reading Without Diagnosis Of Hypertension 06/09/2011 SALLY ACCOUNTS ADMINISTRATOR, VALERIE S 796.2 Elevated Blood Pressure Reading Without Diagnosis Of Hypertension 06/09/2011 YATES DO KARO K 796.2 Elevated Blood Pressure Reading Without Diagnosis Of Hypertension 06/09/2011 SALLY ACCOUNTS ADMINISTRATOR, VALERIE S 796.2 Elevated Blood Pressure Reading Without Diagnosis Of Hypertension 06/09/2011 MILAN RAMIREZ KARO K 796.2 Elevated Blood Pressure Reading Without Diagnosis Of Hypertension 06/09/2011 SALLY ACCOUNTS ADMINISTRATOR, VALERIE S 796.2 Elevated Blood Pressure Reading Without Diagnosis Of Hypertension 06/09/2011 SALLY ACCOUNTS ADMINISTRATOR, VALERIE S 796.2 Elevated Blood Pressure Reading Without Diagnosis Of Hypertension 06/09/2011 SALLY ACCOUNTS ADMINISTRATOR, VALERIE S 796.2 Elevated Blood Pressure Reading Without Diagnosis Of Hypertension 06/09/2011 SALLY ACCOUNTS ADMINISTRATOR, VALERIE S 796.2 Elevated Blood Pressure Reading Without Diagnosis Of Hypertension 06/09/2011 SALLY ACCOUNTS ADMINISTRATOR, VALERIE S 796.2 Elevated Blood Pressure Reading [...] 07/12/2011 338.4 CHRONIC PAIN SYNDROME 07/12/2011 SALLY ACCOUNTS ADMINISTRATOR, VALERIE S 338.4 CHRONIC PAIN SYNDROME 07/12/2011 YATES DO, KARO K 338.4 CHRONIC PAIN SYNDROME 07/12/2011 SALLY ACCOUNTS ADMINISTRATOR, VALERIE S 338.4 CHRONIC PAIN SYNDROME 07/12/2011 SALLY ACCOUNTS ADMINISTRATOR, VALERIE S 338.4 CHRONIC PAIN SYNDROME 07/12/2011 YATES DO, KARO K 338.4 CHRONIC PAIN SYNDROME 07/12/2011 338.4 CHRONIC PAIN SYNDROME 07/12/2011 338.4 CHRONIC PAIN SYNDROME 07/12/2011 338.4 CHRONIC PAIN SYNDROME 07/12/2011 MARY JO ABRAMS, MICHELLE 338.4 CHRONIC PAIN SYNDROME 07/12/2011 SALLY ACCOUNTS ADMINISTRATOR, VALERIE S 338.4 CHRONIC PAIN SYNDROME 07/12/2011 SALLY ACCOUNTS ADMINISTRATOR, VALERIE S 338.4 CHRONIC PAIN SYNDROME 07/12/2011 YATES DO, KARO K 338.4 CHRONIC PAIN SYNDROME 07/12/2011 SALLY ACCOUNTS ADMINISTRATOR, VALERIE S 338.4 CHRONIC PAIN SYNDROME 07/12/2011 YATES DO, KARO K 338.4 CHRONIC PAIN SYNDROME 07/12/2011 SALLY ACCOUNTS ADMINISTRATOR, VALERIE S 338.4 CHRONIC PAIN SYNDROME 07/12/2011 SALLY ACCOUNTS ADMINISTRATOR, VALERIE S 338.4 CHRONIC PAIN SYNDROME 07/12/2011 SALLY ACCOUNTS ADMINISTRATOR, VALERIE S 338.4 CHRONIC PAIN SYNDROME 07/12/2011 SALLY ACCOUNTS ADMINISTRATOR, VALERIE S 338.4 CHRONIC PAIN SYNDROME 07/12/2011 SALLY ACCOUNTS ADMINISTRATOR, VALERIE S 338.4 CHRONIC PAIN SYNDROME 07/12/2011 SALLY ACCOUNTS ADMINISTRATOR, VALERIE S 338.4 CHRONIC PAIN SYNDROME 07/12/2011 SALLY ACCOUNTS ADMINISTRATOR, VALERIE S 338.4 CHRONIC PAIN SYNDROME 07/12/2011 YATES DO, KARO K 338.4 CHRONIC PAIN SYNDROME 07/12/2011 SALLY ACCOUNTS ADMINISTRATOR, VALERIE S 338.4 CHRONIC PAIN SYNDROME 07/12/2011 YATES DO, KARO K 338.4 CHRONIC PAIN SYNDROME 07/12/2011 SALLY ACCOUNTS ADMINISTRATOR, VALERIE S 338.4 CHRONIC PAIN SYNDROME 07/12/2011 SALLY ACCOUNTS ADMINISTRATOR, VALERIE S 338.4 CHRONIC PAIN SYNDROME 07/12/2011 SALLY ACCOUNTS ADMINISTRATOR, VALERIE S 338.4 CHRONIC PAIN SYNDROME 07/12/2011 [...] RAMIREZ KARO K 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 09/23/2011 SALLY ACCOUNTS ADMINISTRATOR, VALERIE S 735.0 HALLUX VALGUS (ACQUIRED) 09/23/2011 SALLY ACCOUNTS ADMINISTRATOR, VALERIE S 735.4 HAMMER TOE (ACQUIRED) 09/23/2011 SALLY ACCOUNTS ADMINISTRATOR, VALERIE S 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 09/23/2011 SALLY ACCOUNTS ADMINISTRATOR, VALERIE S 735.0 HALLUX VALGUS (ACQUIRED) 09/23/2011 [...] S 735.0 HALLUX VALGUS (ACQUIRED) 09/23/2011 SALLY ACCOUNTS ADMINISTRATOR, VALERIE S 735.4 HAMMER TOE (ACQUIRED) 09/23/2011 SALLY ACCOUNTS ADMINISTRATOR, VALERIE S 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 09/23/2011 SALLY ACCOUNTS ADMINISTRATOR, VALERIE S 735.0 HALLUX VALGUS (ACQUIRED) 09/23/2011 SALLY ACCOUNTS ADMINISTRATOR, VALERIE S 735.4 HAMMER TOE (ACQUIRED) 09/23/2011 SALLY ACCOUNTS ADMINISTRATOR, VALERIE S 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 09/23/2011 YATES DO, KARO K 735.0 HALLUX VALGUS (ACQUIRED) 09/23/2011 YATES DO, KARO K 735.4 HAMMER TOE (ACQUIRED) 09/23/2011 YATES DO, KARO K 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 09/23/2011 SALLY ACCOUNTS ADMINISTRATOR, VALERIE S 735.0 HALLUX VALGUS (ACQUIRED) 09/23/2011 SALLY ACCOUNTS ADMINISTRATOR, VALERIE S 735.4 HAMMER TOE (ACQUIRED) 09/23/2011 SALLY ACCOUNTS ADMINISTRATOR, VALERIE S 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 09/23/2011 YATES DO, KARO K 735.0 HALLUX VALGUS (ACQUIRED) 09/23/2011 YATES DO, KARO K 735.4 HAMMER TOE (ACQUIRED) 09/23/2011 YATES DO, KARO K 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 09/23/2011 SALLY ACCOUNTS ADMINISTRATOR, VALERIE S 735.0 HALLUX VALGUS (ACQUIRED) 09/23/2011 SALLY ACCOUNTS ADMINISTRATOR, VALERIE S 735.4 HAMMER TOE (ACQUIRED) 09/23/2011 SALLY ACCOUNTS ADMINISTRATOR, VALERIE S 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 09/23/2011 SALLY ACCOUNTS ADMINISTRATOR, VALERIE S 735.0 HALLUX VALGUS (ACQUIRED) 09/23/2011 SALLY ACCOUNTS ADMINISTRATOR, VALERIE S 735.4 HAMMER TOE (ACQUIRED) 09/23/2011 SALLY ACCOUNTS ADMINISTRATOR, VALERIE S 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 09/23/2011 SALLY ACCOUNTS ADMINISTRATOR, VALERIE S 735.0 HALLUX VALGUS (ACQUIRED) 09/23/2011 SALLY ACCOUNTS ADMINISTRATOR, VALERIE S 735.4 HAMMER TOE (ACQUIRED) 09/23/2011 SALLY ACCOUNTS ADMINISTRATOR, VALERIE S 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 09/23/2011 SALLY ACCOUNTS ADMINISTRATOR, VALERIE S 735.0 HALLUX VALGUS (ACQUIRED) 09/23/2011 SALLY ACCOUNTS ADMINISTRATOR, VALERIE S 735.4 HAMMER TOE (ACQUIRED) 09/23/2011 SALLY ACCOUNTS ADMINISTRATOR, VALERIE S 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 09/23/2011 SALLY ACCOUNTS ADMINISTRATOR, VALERIE S 735.0 HALLUX VALGUS (ACQUIRED) 09/23/2011 SALLY ACCOUNTS ADMINISTRATOR, VALERIE S 735.4 HAMMER TOE (ACQUIRED) 09/23/2011 SALLY ACCOUNTS ADMINISTRATOR, VALERIE S 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 09/23/2011 SALLY ACCOUNTS ADMINISTRATOR, VALERIE S 735.0 HALLUX VALGUS (ACQUIRED) 09/23/2011 SALLY ACCOUNTS ADMINISTRATOR, VALERIE S 735.4 HAMMER TOE (ACQUIRED) 09/23/2011 SALLY ACCOUNTS ADMINISTRATOR, VALERIE S 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 09/23/2011 SALLY ACCOUNTS ADMINISTRATOR, VALERIE S 735.0 HALLUX VALGUS (ACQUIRED) 09/23/2011 SALLY ACCOUNTS ADMINISTRATOR, VALERIE S 735.4 HAMMER TOE (ACQUIRED) 09/23/2011 SALLY ACCOUNTS ADMINISTRATOR, VALERIE S 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 09/23/2011 YATES DO, KARO K 735.0 HALLUX VALGUS (ACQUIRED) 09/23/2011 YATES DO, KARO K 735.4 HAMMER TOE (ACQUIRED) 09/23/2011 YATES DO, KARO K 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 09/23/2011 SALLY ACCOUNTS ADMINISTRATOR, VALERIE S 735.0 HALLUX VALGUS (ACQUIRED) 09/23/2011 SALLY ACCOUNTS ADMINISTRATOR, VALERIE S 735.4 HAMMER TOE (ACQUIRED) 09/23/2011 SALLY ACCOUNTS ADMINISTRATOR, VALERIE S 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 09/23/2011 YATES DO, KARO K 735.0 HALLUX VALGUS (ACQUIRED) 09/23/2011 YATES DO, KARO K 735.4 HAMMER TOE (ACQUIRED) 09/23/2011 YATES DO, KARO K 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 09/23/2011 SALLY ACCOUNTS ADMINISTRATOR, VALERIE S 735.0 HALLUX VALGUS (ACQUIRED) 09/23/2011 SALLY ACCOUNTS ADMINISTRATOR, VALERIE S 735.4 HAMMER TOE (ACQUIRED) 09/23/2011 SALLY ACCOUNTS ADMINISTRATOR, VALERIE S 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 09/23/2011 SALLY ACCOUNTS ADMINISTRATOR, VALERIE S 735.0 HALLUX VALGUS (ACQUIRED) 09/23/2011 SALLY ACCOUNTS ADMINISTRATOR, VALERIE S 735.4 HAMMER TOE (ACQUIRED) 09/23/2011 SALLY ACCOUNTS ADMINISTRATOR, VALERIE S 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 09/23/2011 SALLY ACCOUNTS ADMINISTRATOR, VALERIE S 735.0 HALLUX VALGUS (ACQUIRED) 09/23/2011 SALLY ACCOUNTS ADMINISTRATOR, VALERIE S 735.4 HAMMER TOE (ACQUIRED) 09/23/2011 SALLY ACCOUNTS ADMINISTRATOR, VALERIE S 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 09/23/2011 YATES DO, KARO K 735.0 HALLUX VALGUS (ACQUIRED) 09/23/2011 YATES DO, KARO K 735.4 HAMMER TOE (ACQUIRED) 09/23/2011 YATES DO, KARO K 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 09/23/2011 SALLY ACCOUNTS ADMINISTRATOR, VALERIE S 735.0 HALLUX VALGUS (ACQUIRED) 09/23/2011 SALLY ACCOUNTS ADMINISTRATOR, VALERIE S 735.4 HAMMER TOE (ACQUIRED) 09/23/2011 SALLY ACCOUNTS ADMINISTRATOR, VALERIE S 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 11/18/2011 YATES DO, KARO K 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 11/18/2011 YATES DO, KARO K 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 11/18/2011 ZORAIDA ESPAÑA APRN R 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 11/18/2011 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 11/18/2011 SALLY ACCOUNTS ADMINISTRATOR, VALERIE S 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 11/18/2011 YATES DO, KARO K 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 11/18/2011 SALLY ACCOUNTS ADMINISTRATOR, VALERIE S 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 11/18/2011 SALLY ACCOUNTS ADMINISTRATOR, VALERIE S 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 11/18/2011 YATES DO, KARO K 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 11/18/2011 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 11/18/2011 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 11/18/2011 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 11/18/2011 MICHELLE CAMARGO MD 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 11/18/2011 SALLY ACCOUNTS ADMINISTRATOR, VALERIE S 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 11/18/2011 SALLY ACCOUNTS ADMINISTRATOR, VALERIE S 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 11/18/2011 YATES DO, KARO K 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 11/18/2011 SALLY ACCOUNTS ADMINISTRATOR, VALERIE S 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 11/18/2011 YATES DO, KARO K 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 11/18/2011 SALLY ACCOUNTS ADMINISTRATOR, VALERIE S 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 11/18/2011 SALLY ACCOUNTS ADMINISTRATOR, VALERIE S 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 11/18/2011 SALLY ACCOUNTS ADMINISTRATOR, VALERIE S 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 11/18/2011 SALLY ACCOUNTS ADMINISTRATOR, VALERIE S 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 11/18/2011 SALLY ACCOUNTS ADMINISTRATOR, VALERIE S 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 11/18/2011 SALLY ACCOUNTS ADMINISTRATOR, VALERIE S 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 11/18/2011 SALLY ACCOUNTS ADMINISTRATOR, VALERIE S 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 11/18/2011 YATES DO, KARO K 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 11/18/2011 SALLY ACCOUNTS ADMINISTRATOR, VALERIE S 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 11/18/2011 YATES DO, KARO K 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 11/18/2011 SALLY ACCOUNTS ADMINISTRATOR, VALERIE S 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 11/18/2011 SALLY ACCOUNTS ADMINISTRATOR, VALERIE S 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 11/18/2011 SALLY ACCOUNTS ADMINISTRATOR, VALERIE S 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 11/18/2011 YATES DO, KARO K 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 11/18/2011 SALLY ACCOUNTS ADMINISTRATOR, VALERIE S 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 12/05/2011 [...] S 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 01/20/2012 SALLY ACCOUNTS ADMINISTRATOR, VALERIE S 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 01/20/2012 YATES DO, KARO K 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 01/20/2012 SALLY ACCOUNTS ADMINISTRATOR, VALERIE S 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 01/20/2012 YATES DO, KARO K 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 01/20/2012 SALLY RIVERA VALERIE S 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 01/20/2012 SALLY ACCOUNTS ADMINISTRATOR, VALERIE S 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 01/20/2012 SALLY ACCOUNTS ADMINISTRATOR, VALERIE S 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 01/20/2012 SALLY ACCOUNTS ADMINISTRATOR, VALERIE S 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 01/20/2012 SALLY ACCOUNTS ADMINISTRATOR, VALERIE S 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 01/20/2012 SALLY ACCOUNTS ADMINISTRATOR, VALERIE S 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 01/20/2012 SALLY ACCOUNTS ADMINISTRATOR, VALERIE S 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 01/20/2012 YATES DO, KARO K 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 01/20/2012 SALLY ACCOUNTS ADMINISTRATOR, VALERIE S 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 01/20/2012 YATES DO, KARO K 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 01/20/2012 SALLY ACCOUNTS ADMINISTRATOR, VALERIE S 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 01/20/2012 SALLY ACCOUNTS ADMINISTRATOR, VALERIE S 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 01/20/2012 SALLY ACCOUNTS ADMINISTRATOR, VALERIE S 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 01/20/2012 YATES DO, KARO K 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 01/20/2012 SALLY ACCOUNTS ADMINISTRATOR, VALERIE S 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 02/09/2012 [...] AT A HEALTH CARE FACILITY 02/14/2012 SALLY ACCOUNTS ADMINISTRATORADRIAN TalleyA S V70.0 ROUTINE GENERAL MEDICAL EXAMINATION AT A HEALTH CARE FACILITY 02/14/2012 SALLY ACCOUNTS ADMINISTRATORSERINA TalleyNDA S V70.0 ROUTINE GENERAL MEDICAL EXAMINATION AT A HEALTH CARE FACILITY 02/14/2012 SERINA ZAVALA APRNNDA S V70.0 ROUTINE GENERAL MEDICAL EXAMINATION AT A HEALTH CARE FACILITY 02/14/2012 SERINA ZAVALA APRNNDA S V70.0 ROUTINE GENERAL MEDICAL EXAMINATION AT A HEALTH CARE FACILITY 02/14/2012 SALLY ACCOUNTS ADMINISTRATORSERINA TalleyNDA S V70.0 ROUTINE GENERAL MEDICAL EXAMINATION [...] K 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 03/16/2012 ESPAÑA ACCOUNTS ADMINISTRATOR, ZORAIDA R 719.07 EDEMA FOOT 03/16/2012 ESPAÑA ACCOUNTS ADMINISTRATOR, ZORAIDA R 726.90 CAPSULITIS 03/16/2012 ESPAÑA ACCOUNTS ADMINISTRATOR, ZORAIDA R 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 03/16/2012 719.07 EDEMA FOOT 03/16/2012 726.90 CAPSULITIS 03/16/2012 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 03/16/2012 SALLY ACCOUNTS ADMINISTRATOR, VALERIE S 719.07 EDEMA FOOT 03/16/2012 SALLY ACCOUNTS ADMINISTRATOR, VALERIE S 726.90 CAPSULITIS 03/16/2012 SALLY ACCOUNTS ADMINISTRATOR, VALERIE S 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 03/16/2012 YATES DO, KARO K 719.07 EDEMA FOOT 03/16/2012 YATES DO, KARO K 726.90 CAPSULITIS 03/16/2012 YATES DO, KARO K 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 03/16/2012 SALLY ACCOUNTS ADMINISTRATOR, VALERIE S 719.07 EDEMA FOOT 03/16/2012 SALLY ACCOUNTS ADMINISTRATOR, VALERIE S 726.90 CAPSULITIS 03/16/2012 SALLY ACCOUNTS ADMINISTRATOR, VALERIE S 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 03/16/2012 SALLY ACCOUNTS ADMINISTRATOR, VALERIE S 719.07 EDEMA FOOT 03/16/2012 SALLY ACCOUNTS ADMINISTRATOR, VALERIE S 726.90 CAPSULITIS 03/16/2012 SALLY ACCOUNTS ADMINISTRATOR, VALERIE S 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 03/16/2012 [...] RIVERA VALERIE S 726.90 CAPSULITIS 03/16/2012 SALLY ACCOUNTS ADMINISTRATOR, VALERIE S 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 03/16/2012 SALLY ACCOUNTS ADMINISTRATOR, VALERIE S 719.07 EDEMA FOOT 03/16/2012 SALLY RIVERA, VALERIE S 726.90 CAPSULITIS 03/16/2012 SALLY ACCOUNTS ADMINISTRATOR, VALERIE S 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 03/16/2012 [...] K 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 03/16/2012 SALLY ACCOUNTS ADMINISTRATOR, VALERIE S 719.07 EDEMA FOOT 03/16/2012 SALLY ACCOUNTS ADMINISTRATOR, VALERIE S 726.90 CAPSULITIS 03/16/2012 SALLY ACCOUNTS ADMINISTRATOR, VALERIE S 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 03/16/2012 SALLY ACCOUNTS ADMINISTRATOR, VALERIE S 719.07 EDEMA FOOT 03/16/2012 SALLY ACCOUNTS ADMINISTRATOR, VALERIE S 726.90 CAPSULITIS 03/16/2012 SALLY ACCOUNTS ADMINISTRATOR, VALERIE S 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 03/16/2012 SALLY ACCOUNTS ADMINISTRATOR, VALERIE S 719.07 EDEMA FOOT 03/16/2012 SALLY ACCOUNTS ADMINISTRATOR, VALERIE S 726.90 CAPSULITIS 03/16/2012 SALLY ACCOUNTS ADMINISTRATOR, VALERIE S 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 03/16/2012 SALLY ACCOUNTS ADMINISTRATOR, VALERIE S 719.07 EDEMA FOOT 03/16/2012 SALLY ACCOUNTS ADMINISTRATOR, VALERIE S 726.90 CAPSULITIS 03/16/2012 SALLY ACCOUNTS ADMINISTRATOR, VALERIE S 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 03/16/2012 SALLY ACCOUNTS ADMINISTRATOR, VALERIE S 719.07 EDEMA FOOT 03/16/2012 SALLY ACCOUNTS ADMINISTRATOR, VALERIE S 726.90 CAPSULITIS 03/16/2012 SALLY ACCOUNTS ADMINISTRATOR, VALERIE S 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 03/16/2012 SALLY ACCOUNTS ADMINISTRATOR, VALERIE S 719.07 EDEMA FOOT 03/16/2012 SALLY ACCOUNTS ADMINISTRATOR, VALERIE S 726.90 CAPSULITIS 03/16/2012 SALLY ACCOUNTS ADMINISTRATOR, VALERIE S 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 03/16/2012 SALLY ACCOUNTS ADMINISTRATOR, VALERIE S 719.07 EDEMA FOOT 03/16/2012 SALLY ACCOUNTS ADMINISTRATOR, VALERIE S 726.90 CAPSULITIS 03/16/2012 SALLY ACCOUNTS ADMINISTRATOR, VALERIE S 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 03/16/2012 YATES DO, KARO K 719.07 EDEMA FOOT 03/16/2012 YATES DO, KARO K 726.90 CAPSULITIS 03/16/2012 YATES DO, KARO K 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 03/16/2012 SALLY ACCOUNTS ADMINISTRATOR, VALERIE S 719.07 EDEMA FOOT 03/16/2012 SALLY ACCOUNTS ADMINISTRATOR, VALERIE S 726.90 CAPSULITIS 03/16/2012 SALLY ACCOUNTS ADMINISTRATOR, VALERIE S 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 03/16/2012 YATES DO, KARO K 719.07 EDEMA FOOT 03/16/2012 YATES DO, KARO K 726.90 CAPSULITIS 03/16/2012 YATES DO, KARO K 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 03/16/2012 SALLY ACCOUNTS ADMINISTRATOR, VALERIE S 719.07 EDEMA FOOT 03/16/2012 SALLY ACCOUNTS ADMINISTRATOR, VALERIE S 726.90 CAPSULITIS 03/16/2012 SALLY ACCOUNTS ADMINISTRATOR, VALERIE S 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 03/16/2012 SALLY ACCOUNTS ADMINISTRATOR, VALERIE S 719.07 EDEMA FOOT 03/16/2012 SALLY ACCOUNTS ADMINISTRATOR, VALERIE S 726.90 CAPSULITIS 03/16/2012 SALLY ACCOUNTS ADMINISTRATOR, VALERIE S 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 03/16/2012 SALLY ACCOUNTS ADMINISTRATOR, VALERIE S 719.07 EDEMA FOOT 03/16/2012 SALLY ACCOUNTS ADMINISTRATOR, VALERIE S 726.90 CAPSULITIS 03/16/2012 SALLY ACCOUNTS ADMINISTRATOR, VALERIE S 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 03/16/2012 YATES DO, KARO K 719.07 EDEMA FOOT 03/16/2012 YATES DO, KARO K 726.90 CAPSULITIS 03/16/2012 YATES DO, KARO K 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 03/16/2012 SALLY ACCOUNTS ADMINISTRATOR, VALERIE S 719.07 EDEMA FOOT 03/16/2012 SALLY ACCOUNTS ADMINISTRATOR, VALERIE S 726.90 CAPSULITIS 03/16/2012 SALLY ACCOUNTS ADMINISTRATOR, VALERIE S 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 03/30/2012 YATES DO KARO K V45.89 POSTSURGICAL STATUS 03/30/2012 YATES DO KARO K V45.89 POSTSURGICAL STATUS 03/30/2012 ESPAÑA ACCOUNTS ADMINISTRATOR, ZORAIDA R V45.89 POSTSURGICAL STATUS 03/30/2012 V45.89 POSTSURGICAL STATUS 03/30/2012 SALLY ACCOUNTS ADMINISTRATOR, VALERIE S V45.89 POSTSURGICAL STATUS 03/30/2012 YATES DO KARO K V45.89 POSTSURGICAL STATUS 03/30/2012 SALLY ACCOUNTS ADMINISTRATOR, VALERIE S V45.89 POSTSURGICAL STATUS 03/30/2012 SALLY ACCOUNTS ADMINISTRATOR, VALERIE S V45.89 POSTSURGICAL STATUS 03/30/2012 YATES DO KARO K V45.89 POSTSURGICAL STATUS 03/30/2012 V45.89 POSTSURGICAL STATUS 03/30/2012 V45.89 POSTSURGICAL STATUS 03/30/2012 V45.89 POSTSURGICAL STATUS 03/30/2012 MICHELLE CAMARGO MD V45.89 POSTSURGICAL STATUS 03/30/2012 SALLY ACCOUNTS ADMINISTRATOR, VALERIE S V45.89 POSTSURGICAL STATUS 03/30/2012 SALLY ACCOUNTS ADMINISTRATOR, VALERIE S V45.89 POSTSURGICAL STATUS 03/30/2012 YATES DO KARO K V45.89 POSTSURGICAL STATUS 03/30/2012 SALLY ACCOUNTS ADMINISTRATOR, VALERIE S V45.89 POSTSURGICAL STATUS 03/30/2012 YATES DO KARO K V45.89 POSTSURGICAL STATUS 03/30/2012 SALLY ACCOUNTS ADMINISTRATOR, VALERIE S V45.89 POSTSURGICAL STATUS 03/30/2012 SALLY ACCOUNTS ADMINISTRATOR, VALERIE S V45.89 POSTSURGICAL STATUS 03/30/2012 SALLY ACCOUNTS ADMINISTRATOR, VALERIE S V45.89 POSTSURGICAL STATUS 03/30/2012 SALLY ACCOUNTS ADMINISTRATOR, VALERIE S V45.89 POSTSURGICAL STATUS 03/30/2012 SALLY ACCOUNTS ADMINISTRATOR, VALERIE S V45.89 POSTSURGICAL STATUS 03/30/2012 SALLY ACCOUNTS ADMINISTRATOR, VALERIE S V45.89 POSTSURGICAL STATUS 03/30/2012 SALLY ACCOUNTS ADMINISTRATOR, VALERIE S V45.89 POSTSURGICAL STATUS 03/30/2012 YATES DO KARO K V45.89 POSTSURGICAL STATUS 03/30/2012 SALLY ACCOUNTS ADMINISTRATOR, VALERIE S V45.89 POSTSURGICAL STATUS 03/30/2012 YATES DO, KARO K V45.89 POSTSURGICAL STATUS 03/30/2012 SALLY ACCOUNTS ADMINISTRATOR, VALERIE S V45.89 POSTSURGICAL STATUS 03/30/2012 SALLY ACCOUNTS ADMINISTRATOR, VALERIE S V45.89 POSTSURGICAL STATUS 03/30/2012 SALLY ACCOUNTS ADMINISTRATOR, VALERIE S V45.89 POSTSURGICAL STATUS 03/30/2012 YATES DO, KARO K V45.89 POSTSURGICAL STATUS 03/30/2012 SALLY ACCOUNTS ADMINISTRATOR, VALERIE S V45.89 POSTSURGICAL STATUS 05/29/2012 TACO ACCOUNTS ADMINISTRATOR, ZORAIDA R 786.2 cough 05/29/2012 786.2 cough 05/29/2012 SALLY ACCOUNTS ADMINISTRATOR, VALERIE S 786.2 cough 05/29/2012 YATES DO, KARO K 786.2 cough 05/29/2012 SALLY ACCOUNTS ADMINISTRATOR, VALERIE S 786.2 cough 05/29/2012 SALLY ACCOUNTS ADMINISTRATOR, VALERIE S 786.2 cough 05/29/2012 YATES DO KARO K 786.2 cough 05/29/2012 786.2 cough 05/29/2012 786.2 COUGH 05/29/2012 786.2 COUGH 05/29/2012 IMCHELLE CAMARGO MD 786.2 COUGH 05/29/2012 SALLY ACCOUNTS ADMINISTRATOR, VALERIE S 786.2 COUGH 05/29/2012 SALLY ACCOUNTS ADMINISTRATOR, VALERIE S 786.2 COUGH 05/29/2012 YATES DO, KARO K 786.2 COUGH 05/29/2012 SALLY ACCOUNTS ADMINISTRATOR, VALERIE S 786.2 COUGH 05/29/2012 YATES DO, KARO K 786.2 COUGH 05/29/2012 SALLY ACCOUNTS ADMINISTRATOR, VALERIE S 786.2 COUGH 05/29/2012 SALLY ACCOUNTS ADMINISTRATOR, VALERIE S 786.2 COUGH 05/29/2012 SALLY ACCOUNTS ADMINISTRATOR, VALERIE S 786.2 COUGH 05/29/2012 SALLY ACCOUNTS ADMINISTRATOR, VALERIE S 786.2 COUGH 05/29/2012 SALLY ACCOUNTS ADMINISTRATOR, VALERIE S 786.2 COUGH 05/29/2012 SALLY ACCOUNTS ADMINISTRATOR, VALERIE S 786.2 COUGH 05/29/2012 SALLY ACCOUNTS ADMINISTRATOR, VALERIE S 786.2 COUGH 05/29/2012 YATES DO, KARO K 786.2 COUGH 05/29/2012 SALLY ACCOUNTS ADMINISTRATOR, VALERIE S 786.2 COUGH 05/29/2012 YATES DO, KARO K 786.2 COUGH 05/29/2012 SALLY ACCOUNTS ADMINISTRATOR, VALERIE S 786.2 COUGH 05/29/2012 SALLY ACCOUNTS ADMINISTRATOR, VALERIE S 786.2 COUGH 05/29/2012 SALLY ACCOUNTS ADMINISTRATOR, VALERIE S 786.2 COUGH 05/29/2012 YATES DO, KARO K 786.2 COUGH 05/29/2012 SALLY ACCOUNTS ADMINISTRATOR, VALERIE S 786.2 COUGH 06/05/2012 461.9 SINUSITIS ACUTE 06/05/2012 SALLY ACCOUNTS ADMINISTRATOR, VALERIE S 461.9 SINUSITIS ACUTE 06/05/2012 YATES DO, KARO K 461.9 SINUSITIS ACUTE 06/05/2012 SALLY ACCOUNTS ADMINISTRATOR, VALERIE S 461.9 SINUSITIS ACUTE 06/05/2012 SALLY ACCOUNTS ADMINISTRATOR, VALERIE S 461.9 SINUSITIS ACUTE 06/05/2012 YATES DO KARO K 461.9 SINUSITIS ACUTE 06/05/2012 461.9 SINUSITIS ACUTE 06/05/2012 461.9 SINUSITIS ACUTE 06/05/2012 461.9 SINUSITIS ACUTE 06/05/2012 MICHELLE CAMARGO MD 461.9 SINUSITIS ACUTE 06/05/2012 SALLY ACCOUNTS ADMINISTRATOR, VALERIE S 461.9 SINUSITIS ACUTE 06/05/2012 SALLY ACCOUNTS ADMINISTRATOR, VALERIE S 461.9 SINUSITIS ACUTE 06/05/2012 YATES DO KARO K 461.9 SINUSITIS ACUTE 06/05/2012 SALLY ACCOUNTS ADMINISTRATOR, VALERIE S 461.9 SINUSITIS ACUTE 06/05/2012 YATES DO, KARO K 461.9 SINUSITIS ACUTE 06/05/2012 SALLY ACCOUNTS ADMINISTRATOR, VALERIE S 461.9 SINUSITIS ACUTE 06/05/2012 SALLY ACCOUNTS ADMINISTRATOR, VALERIE S 461.9 SINUSITIS ACUTE 06/05/2012 SALLY ACCOUNTS ADMINISTRATOR, VALERIE S 461.9 SINUSITIS ACUTE 06/05/2012 SALLY ACCOUNTS ADMINISTRATOR, VALERIE S 461.9 SINUSITIS ACUTE 06/05/2012 SALLY ACCOUNTS ADMINISTRATOR, VALERIE S 461.9 SINUSITIS ACUTE 06/05/2012 SALLY ACCOUNTS ADMINISTRATOR, VALERIE S 461.9 SINUSITIS ACUTE 06/05/2012 SALLY ACCOUNTS ADMINISTRATOR, VALERIE S 461.9 SINUSITIS ACUTE 06/05/2012 HALEY YATES DOA K 461.9 SINUSITIS ACUTE 06/05/2012 SALLY ACCOUNTS ADMINISTRATOR, VALERIE S 461.9 SINUSITIS ACUTE 06/05/2012 HALEY YATES DOA K 461.9 SINUSITIS ACUTE 06/05/2012 SALLY ACCOUNTS ADMINISTRATOR, VALERIE S 461.9 SINUSITIS ACUTE 06/05/2012 SALLY ACCOUNTS ADMINISTRATOR, VALERIE S 461.9 SINUSITIS ACUTE 06/05/2012 SALLY ACCOUNTS ADMINISTRATOR, VALERIE S 461.9 SINUSITIS ACUTE 06/05/2012 HALEY YATES DOA K 461.9 SINUSITIS ACUTE 06/05/2012 SALLY ACCOUNTS ADMINISTRATOR, VALERIE S 461.9 SINUSITIS ACUTE 07/04/2012 SALLY ACCOUNTS ADMINISTRATOR, VALERIE S 535.50 UNSPECIFIED GASTRITIS AND GASTRODUODENITIS (WITHOUT HEMORRHAGE) 07/04/2012 SALLY ACCOUNTS ADMINISTRATOR, VALERIE S 535.50 UNSPECIFIED GASTRITIS AND GASTRODUODENITIS (WITHOUT HEMORRHAGE) 07/04/2012 KARO YATES DO 535.50 UNSPECIFIED GASTRITIS AND GASTRODUODENITIS (WITHOUT HEMORRHAGE) 07/04/2012 535.50 UNSPECIFIED GASTRITIS AND GASTRODUODENITIS (WITHOUT HEMORRHAGE) 07/04/2012 535.50 UNSPECIFIED GASTRITIS AND GASTRODUODENITIS (WITHOUT HEMORRHAGE) 07/04/2012 535.50 UNSPECIFIED GASTRITIS AND GASTRODUODENITIS (WITHOUT HEMORRHAGE) 07/04/2012 MICHELLE CAMARGO MD 535.50 UNSPECIFIED GASTRITIS AND GASTRODUODENITIS (WITHOUT HEMORRHAGE) 07/04/2012 SALLY ACCOUNTS ADMINISTRATOR, VALERIE S 535.50 UNSPECIFIED GASTRITIS AND GASTRODUODENITIS (WITHOUT HEMORRHAGE) 07/04/2012 SALLY ACCOUNTS ADMINISTRATOR, VALERIE S 535.50 UNSPECIFIED GASTRITIS AND GASTRODUODENITIS (WITHOUT HEMORRHAGE) 07/04/2012 KARO YATES DO 535.50 UNSPECIFIED GASTRITIS AND GASTRODUODENITIS (WITHOUT HEMORRHAGE) 07/04/2012 SALLY ACCOUNTS ADMINISTRATOR, VALERIE S 535.50 UNSPECIFIED GASTRITIS AND GASTRODUODENITIS (WITHOUT HEMORRHAGE) 07/04/2012 YATES DO KARO K 535.50 UNSPECIFIED GASTRITIS AND GASTRODUODENITIS (WITHOUT HEMORRHAGE) 07/04/2012 SALLY ACCOUNTS ADMINISTRATOR, VALERIE S 535.50 UNSPECIFIED GASTRITIS AND GASTRODUODENITIS (WITHOUT HEMORRHAGE) 07/04/2012 SALLY ACCOUNTS ADMINISTRATOR, VALERIE S 535.50 UNSPECIFIED GASTRITIS AND GASTRODUODENITIS (WITHOUT HEMORRHAGE) 07/04/2012 SALLY ACCOUNTS ADMINISTRATOR, VALERIE S 535.50 UNSPECIFIED GASTRITIS AND GASTRODUODENITIS (WITHOUT HEMORRHAGE) 07/04/2012 SALLY ACCOUNTS ADMINISTRATOR, VALERIE S 535.50 UNSPECIFIED GASTRITIS AND GASTRODUODENITIS (WITHOUT HEMORRHAGE) 07/04/2012 SALLY ACCOUNTS ADMINISTRATOR, VALERIE S 535.50 UNSPECIFIED GASTRITIS AND GASTRODUODENITIS (WITHOUT HEMORRHAGE) 07/04/2012 SALLY ACCOUNTS ADMINISTRATOR, VALERIE S 535.50 UNSPECIFIED GASTRITIS AND GASTRODUODENITIS (WITHOUT HEMORRHAGE) 07/04/2012 SALLY ACCOUNTS ADMINISTRATOR, VALERIE S 535.50 UNSPECIFIED GASTRITIS AND GASTRODUODENITIS (WITHOUT HEMORRHAGE) 07/04/2012 YATES DO KARO K 535.50 UNSPECIFIED GASTRITIS AND GASTRODUODENITIS (WITHOUT HEMORRHAGE) 07/04/2012 SALLY ACCOUNTS ADMINISTRATOR, VALERIE S 535.50 UNSPECIFIED GASTRITIS AND GASTRODUODENITIS (WITHOUT HEMORRHAGE) 07/04/2012 YATES DO KARO K 535.50 UNSPECIFIED GASTRITIS AND GASTRODUODENITIS (WITHOUT HEMORRHAGE) 07/04/2012 SALLY ACCOUNTS ADMINISTRATOR, VALERIE S 535.50 UNSPECIFIED GASTRITIS AND GASTRODUODENITIS (WITHOUT HEMORRHAGE) 07/04/2012 SALLY ACCOUNTS ADMINISTRATOR, VALERIE S 535.50 UNSPECIFIED GASTRITIS AND GASTRODUODENITIS (WITHOUT HEMORRHAGE) 07/04/2012 SALLY ACCOUNTS ADMINISTRATOR, VALERIE S 535.50 UNSPECIFIED GASTRITIS AND GASTRODUODENITIS (WITHOUT HEMORRHAGE) 07/04/2012 YATES DO KARO K 535.50 UNSPECIFIED GASTRITIS AND GASTRODUODENITIS (WITHOUT HEMORRHAGE) 07/04/2012 SALLY ACCOUNTS ADMINISTRATOR, VALERIE S 535.50 UNSPECIFIED GASTRITIS AND GASTRODUODENITIS (WITHOUT HEMORRHAGE) 07/30/2012 SALLY ACCOUNTS ADMINISTRATOR, VALERIE S 788.1 DYSURIA 07/30/2012 YATES DO, KARO K 788.1 DYSURIA 07/30/2012 788.1 DYSURIA 07/30/2012 788.1 DYSURIA 07/30/2012 788.1 DYSURIA 07/30/2012 MICHELLE CAMARGO MD 788.1 DYSURIA 07/30/2012 SALLY ACCOUNTS ADMINISTRATOR, VALERIE S 788.1 DYSURIA 07/30/2012 SALLY ACCOUNTS ADMINISTRATOR, VALERIE S 788.1 DYSURIA 07/30/2012 YATES DO, KARO K 788.1 DYSURIA 07/30/2012 SALLY ACCOUNTS ADMINISTRATOR, VALERIE S 788.1 DYSURIA 07/30/2012 YATES DO, KARO K 788.1 DYSURIA 07/30/2012 SALLY ACCOUNTS ADMINISTRATOR, VALERIE S 788.1 DYSURIA 07/30/2012 SALLY ACCOUNTS ADMINISTRATOR, VALERIE S 788.1 DYSURIA 07/30/2012 SALLY ACCOUNTS ADMINISTRATOR, VALERIE S 788.1 DYSURIA 07/30/2012 SALLY ACCOUNTS ADMINISTRATOR, VALERIE S 788.1 DYSURIA 07/30/2012 SALLY ACCOUNTS ADMINISTRATOR, VALERIE S 788.1 DYSURIA 07/30/2012 SALLY ACCOUNTS ADMINISTRATOR, VALERIE S 788.1 DYSURIA 07/30/2012 SALLY ACCOUNTS ADMINISTRATOR, VALERIE S 788.1 DYSURIA 07/30/2012 YATES DO, KARO K 788.1 DYSURIA 07/30/2012 SALLY ACCOUNTS ADMINISTRATOR, VALERIE S 788.1 DYSURIA 07/30/2012 YATES DO, KARO K 788.1 DYSURIA 07/30/2012 SALLY ACCOUNTS ADMINISTRATOR, VALERIE S 788.1 DYSURIA 07/30/2012 SALLY ACCOUNTS ADMINISTRATOR, VALERIE S 788.1 DYSURIA 07/30/2012 SALLY ACCOUNTS ADMINISTRATOR, VALERIE S 788.1 DYSURIA 07/30/2012 YATES DO, KARO K 788.1 DYSURIA 07/30/2012 SALLY ACCOUNTS ADMINISTRATOR, VALERIE S 788.1 DYSURIA 02/04/2013 MARY JO ABRAMS, MICHELLE 719.40 ARTHRAIGIA UNSPEC 02/04/2013 SALLY ACCOUNTS ADMINISTRATOR, VALERIE S 719.40 ARTHRAIGIA UNSPEC 02/04/2013 SALLY ACCOUNTS ADMINISTRATOR, VALERIE S 719.40 ARTHRAIGIA UNSPEC 02/04/2013 YATES DO, KARO K 719.40 ARTHRAIGIA UNSPEC 02/04/2013 SALLY ACCOUNTS ADMINISTRATOR, VALERIE S 719.40 ARTHRAIGIA UNSPEC 02/04/2013 YATES DO, KARO K 719.40 ARTHRAIGIA UNSPEC 02/04/2013 SALLY ACCOUNTS ADMINISTRATOR, VALERIE S 719.40 ARTHRAIGIA UNSPEC 02/04/2013 SALLY ACCOUNTS ADMINISTRATOR, VALERIE S 719.40 ARTHRAIGIA UNSPEC 02/04/2013 SALLY ACCOUNTS ADMINISTRATOR, VALERIE S 719.40 ARTHRAIGIA UNSPEC 02/04/2013 SALLY ACCOUNTS ADMINISTRATOR, VALERIE S 719.40 ARTHRAIGIA UNSPEC 02/04/2013 SALLY ACCOUNTS ADMINISTRATOR, VALERIE S 719.40 ARTHRAIGIA UNSPEC 02/04/2013 SALLY ACCOUNTS ADMINISTRATOR, VALERIE S 719.40 ARTHRAIGIA UNSPEC 02/04/2013 SALLY ACCOUNTS ADMINISTRATOR, VALERIE S 719.40 ARTHRAIGIA UNSPEC 02/04/2013 YATES DO, KARO K 719.40 ARTHRAIGIA UNSPEC 02/04/2013 SALLY ACCOUNTS ADMINISTRATOR, VALERIE S 719.40 ARTHRAIGIA UNSPEC 02/04/2013 YATES DO, KARO K 719.40 ARTHRAIGIA UNSPEC 02/04/2013 SALLY ACCOUNTS ADMINISTRATOR, VALERIE S 719.40 ARTHRAIGIA UNSPEC 02/04/2013 SALLY ACCOUNTS ADMINISTRATOR, VALERIE S 719.40 ARTHRAIGIA UNSPEC 02/04/2013 SALLY ACCOUNTS ADMINISTRATOR, VALERIE S 719.40 ARTHRAIGIA UNSPEC 02/04/2013 YATES DO, KARO K 719.40 ARTHRAIGIA UNSPEC 02/04/2013 SALLY ACCOUNTS ADMINISTRATOR, VALERIE S 719.40 ARTHRAIGIA UNSPEC 04/02/2013 SALLY ACCOUNTS ADMINISTRATOR, VALERIE S 786.52 CHEST WALL PAIN 04/02/2013 YATES DO, KARO K 786.52 CHEST WALL PAIN 04/02/2013 SALLY ACCOUNTS ADMINISTRATOR, VALERIE S 786.52 CHEST WALL PAIN 04/02/2013 YATES DO, KARO K 786.52 CHEST WALL PAIN 04/02/2013 SALLY ACCOUNTS ADMINISTRATOR, VALERIE S 786.52 CHEST WALL PAIN 04/02/2013 SALLY ACCOUNTS ADMINISTRATOR, VALERIE S 786.52 CHEST WALL PAIN 04/02/2013 SALLY ACCOUNTS ADMINISTRATOR, VALERIE S 786.52 CHEST WALL PAIN 04/02/2013 SALLY ACCOUNTS ADMINISTRATOR, VALERIE S 786.52 CHEST WALL PAIN 04/02/2013 SALLY ACCOUNTS ADMINISTRATOR, VALERIE S 786.52 CHEST WALL PAIN 04/02/2013 SALLY ACCOUNTS ADMINISTRATOR, VALERIE S 786.52 CHEST WALL PAIN 04/02/2013 SALLY ACCOUNTS ADMINISTRATOR, VALERIE S 786.52 CHEST WALL PAIN 04/02/2013 YATES DO KARO K 786.52 CHEST WALL PAIN 04/02/2013 SALLY ACCOUNTS ADMINISTRATOR, VALERIE S 786.52 CHEST WALL PAIN 04/02/2013 YATES DO, KARO K 786.52 CHEST WALL PAIN 04/02/2013 SALLY ACCOUNTS ADMINISTRATOR, VALERIE S 786.52 CHEST WALL PAIN 04/02/2013 SALLY ACCOUNTS ADMINISTRATOR, VALERIE S 786.52 CHEST WALL PAIN 04/02/2013 SALLY ACCOUNTS ADMINISTRATOR, VALERIE S 786.52 CHEST WALL PAIN 04/02/2013 YATES DO, KARO K 786.52 CHEST WALL PAIN 04/02/2013 SALLY ACCOUNTS ADMINISTRATOR, VALERIE S 786.52 CHEST WALL PAIN 04/06/2013 MILAN RAMIREZ KARO K 053.9 HERPES ZOSTER (SHINGLES) 04/06/2013 YATES DO, KARO K 382.00 ACUTE OTITIS MEDIA (LEFT) 04/06/2013 SALLY ACCOUNTS ADMINISTRATOR, VALERIE S 053.9 HERPES ZOSTER (SHINGLES) 04/06/2013 SALLY ACCOUNTS ADMINISTRATOR, VALERIE S 382.00 ACUTE OTITIS MEDIA (LEFT) 04/06/2013 YATES DO, KARO K 053.9 HERPES ZOSTER (SHINGLES) 04/06/2013 YATES DO, KARO K 382.00 ACUTE OTITIS MEDIA (LEFT) 04/06/2013 SALLY ACCOUNTS ADMINISTRATOR, VALERIE S 053.9 HERPES ZOSTER (SHINGLES) 04/06/2013 SALLY ACCOUNTS ADMINISTRATOR, VALERIE S 382.00 ACUTE OTITIS MEDIA (LEFT) 04/06/2013 SALLY ACCOUNTS ADMINISTRATOR, VALERIE S 053.9 HERPES ZOSTER (SHINGLES) 04/06/2013 SALLY ACCOUNTS ADMINISTRATOR, VALERIE S 382.00 ACUTE OTITIS MEDIA (LEFT) 04/06/2013 SALLY ACCOUNTS ADMINISTRATOR, VALERIE S 053.9 HERPES ZOSTER (SHINGLES) 04/06/2013 SALLY ACCOUNTS ADMINISTRATOR, VALERIE S 382.00 ACUTE OTITIS MEDIA (LEFT) 04/06/2013 SALLY ACCOUNTS ADMINISTRATOR, VALERIE S 053.9 HERPES ZOSTER (SHINGLES) 04/06/2013 SALLY ACCOUNTS ADMINISTRATOR, VALERIE S 382.00 ACUTE OTITIS MEDIA (LEFT) 04/06/2013 SALLY ACCOUNTS ADMINISTRATOR, VALERIE S 053.9 HERPES ZOSTER (SHINGLES) 04/06/2013 SALLY ACCOUNTS ADMINISTRATOR, VALERIE S 382.00 ACUTE OTITIS MEDIA (LEFT) 04/06/2013 SALLY ACCOUNTS ADMINISTRATOR, VALERIE S 053.9 HERPES ZOSTER (SHINGLES) 04/06/2013 SALLY ACCOUNTS ADMINISTRATOR, VALERIE S 382.00 ACUTE OTITIS MEDIA (LEFT) 04/06/2013 SALLY ACCOUNTS ADMINISTRATOR, VALERIE S 053.9 HERPES ZOSTER (SHINGLES) 04/06/2013 SALLY ACCOUNTS ADMINISTRATOR, VALERIE S 382.00 ACUTE OTITIS MEDIA (LEFT) 04/06/2013 YATES DO, KARO K 053.9 HERPES ZOSTER (SHINGLES) 04/06/2013 YATES DO, KARO K 382.00 ACUTE OTITIS MEDIA (LEFT) 04/06/2013 SALLY ACCOUNTS ADMINISTRATOR, VALERIE S 053.9 HERPES ZOSTER (SHINGLES) 04/06/2013 SALLY ACCOUNTS ADMINISTRATOR, VALERIE S 382.00 ACUTE OTITIS MEDIA (LEFT) 04/06/2013 YATES DO, KARO K 053.9 HERPES ZOSTER (SHINGLES) 04/06/2013 YATES DO, KARO K 382.00 ACUTE OTITIS MEDIA (LEFT) 04/06/2013 SALLY ACCOUNTS ADMINISTRATOR, VALERIE S 053.9 HERPES ZOSTER (SHINGLES) 04/06/2013 SALLY ACCOUNTS ADMINISTRATOR, VALERIE S 382.00 ACUTE OTITIS MEDIA (LEFT) 04/06/2013 SALLY ACCOUNTS ADMINISTRATOR, VALERIE S 053.9 HERPES ZOSTER (SHINGLES) 04/06/2013 SALLY ACCOUNTS ADMINISTRATOR, VALERIE S 382.00 ACUTE OTITIS MEDIA (LEFT) 04/06/2013 SALLY ACCOUNTS ADMINISTRATOR, VALERIE S 053.9 HERPES ZOSTER (SHINGLES) 04/06/2013 SALLY ACCOUNTS ADMINISTRATOR, VALERIE S 382.00 ACUTE OTITIS MEDIA (LEFT) 04/06/2013 YATES DO, KARO K 053.9 HERPES ZOSTER (SHINGLES) 04/06/2013 YATES DO, KARO K 382.00 ACUTE OTITIS MEDIA (LEFT) 04/06/2013 SALLY ACCOUNTS ADMINISTRATOR, VALERIE S 053.9 HERPES ZOSTER (SHINGLES) 04/06/2013 SALLY ACCOUNTS ADMINISTRATOR, VALERIE S 382.00 ACUTE OTITIS MEDIA (LEFT) 04/10/2013 SALLY ACCOUNTS ADMINISTRATOR, VALERIE S 380.4 CERUMEN IMPACTION 04/10/2013 SALLY ACCOUNTS ADMINISTRATOR, VALERIE S V76.12 MAMMOGRAM SCREENING 04/10/2013 YATES DO, KARO K 380.4 CERUMEN IMPACTION 04/10/2013 YATES DO, KARO K V76.12 MAMMOGRAM SCREENING 04/10/2013 SALLY ACCOUNTS ADMINISTRATOR, VALERIE S 380.4 CERUMEN IMPACTION 04/10/2013 SALLY ACCOUNTS ADMINISTRATOR, VALERIE S V76.12 MAMMOGRAM SCREENING 04/10/2013 SALLY ACCOUNTS ADMINISTRATOR, VALERIE S 380.4 CERUMEN IMPACTION 04/10/2013 SALLY ACCOUNTS ADMINISTRATOR, VALERIE S V76.12 MAMMOGRAM SCREENING 04/10/2013 SALLY ACCOUNTS ADMINISTRATOR, VALERIE S 380.4 CERUMEN IMPACTION 04/10/2013 SALLY ACCOUNTS ADMINISTRATOR, VALERIE S V76.12 MAMMOGRAM SCREENING 04/10/2013 SALLY ACCOUNTS ADMINISTRATOR, VALERIE S 380.4 CERUMEN IMPACTION 04/10/2013 SALLY ACCOUNTS ADMINISTRATOR, VALERIE S V76.12 MAMMOGRAM SCREENING 04/10/2013 SALLY ACCOUNTS ADMINISTRATOR, VALERIE S 380.4 CERUMEN IMPACTION 04/10/2013 SALLY ACCOUNTS ADMINISTRATOR, VALERIE S V76.12 MAMMOGRAM SCREENING 04/10/2013 SALLY ACCOUNTS ADMINISTRATOR, VALERIE S 380.4 CERUMEN IMPACTION 04/10/2013 SALLY ACCOUNTS ADMINISTRATOR, VALERIE S V76.12 MAMMOGRAM SCREENING 04/10/2013 SALLY ACCOUNTS ADMINISTRATOR, VALERIE S 380.4 CERUMEN IMPACTION 04/10/2013 SALLY ACCOUNTS ADMINISTRATOR, VALERIE S V76.12 MAMMOGRAM SCREENING 04/10/2013 YATES DO, KARO K 380.4 CERUMEN IMPACTION 04/10/2013 YATES DO, KARO K V76.12 MAMMOGRAM SCREENING 04/10/2013 SALLY ACCOUNTS ADMINISTRATOR, VALERIE S 380.4 CERUMEN IMPACTION 04/10/2013 SALLY ACCOUNTS ADMINISTRATOR, VALERIE S V76.12 MAMMOGRAM SCREENING 04/10/2013 YATES DO, KARO K 380.4 CERUMEN IMPACTION 04/10/2013 YATES DO, KARO K V76.12 MAMMOGRAM SCREENING 04/10/2013 SALLY ACCOUNTS ADMINISTRATOR, VALERIE S 380.4 CERUMEN IMPACTION 04/10/2013 SALLY ACCOUNTS ADMINISTRATOR, VALERIE S V76.12 MAMMOGRAM SCREENING 04/10/2013 SALLY ACCOUNTS ADMINISTRATOR, VALERIE S 380.4 CERUMEN IMPACTION 04/10/2013 SALLY ACCOUNTS ADMINISTRATOR, VALERIE S V76.12 MAMMOGRAM SCREENING 04/10/2013 SALLY ACCOUNTS ADMINISTRATOR, VALERIE S 380.4 CERUMEN IMPACTION 04/10/2013 SALLY ACCOUNTS ADMINISTRATOR, VALERIE S V76.12 MAMMOGRAM SCREENING 04/10/2013 YATES DO, KARO K 380.4 CERUMEN IMPACTION 04/10/2013 YATES DO, KARO K V76.12 MAMMOGRAM SCREENING 04/10/2013 SALLY ACCOUNTS ADMINISTRATOR, VALERIE S 380.4 CERUMEN IMPACTION 04/10/2013 SALLY ACCOUNTS ADMINISTRATOR, VALERIE S V76.12 MAMMOGRAM SCREENING 09/09/2013 SALLY ACCOUNTS ADMINISTRATOR, VALERIE S 272.4 HYPERLIPIDEMIA 09/09/2013 SALLY ACCOUNTS ADMINISTRATOR, VALERIE S 272.4 HYPERLIPIDEMIA 09/09/2013 SALLY ACCOUNTS ADMINISTRATOR, VALERIE S 272.4 HYPERLIPIDEMIA 09/09/2013 SALLY ACCOUNTS ADMINISTRATOR, VALERIE S 272.4 HYPERLIPIDEMIA 09/09/2013 YATES DO, KARO K 272.4 HYPERLIPIDEMIA 09/09/2013 SALLY ACCOUNTS ADMINISTRATOR, VALERIE S 272.4 HYPERLIPIDEMIA 09/09/2013 YATES DO, KARO K 272.4 HYPERLIPIDEMIA 09/09/2013 SALLY ACCOUNTS ADMINISTRATOR, VALERIE S 272.4 HYPERLIPIDEMIA 09/09/2013 SALLY ACCOUNTS ADMINISTRATOR, VALERIE S 272.4 HYPERLIPIDEMIA 09/09/2013 SALLY ACCOUNTS ADMINISTRATOR, VALERIE S 272.4 HYPERLIPIDEMIA 09/09/2013 YATES DO, KARO K 272.4 HYPERLIPIDEMIA 09/09/2013 SALLY ACCOUNTS ADMINISTRATOR, VALERIE S 272.4 HYPERLIPIDEMIA 10/17/2013 SALLY ACCOUNTS ADMINISTRATOR, VALERIE S 724.5 BACK PAIN, GENERAL 10/17/2013 SALLY ACCOUNTS ADMINISTRATOR, VALERIE S 724.5 BACK PAIN, GENERAL 10/17/2013 SALLY ACCOUNTS ADMINISTRATOR, VALERIE S 724.5 BACK PAIN, GENERAL 10/17/2013 YATES DO, KARO K 724.5 BACK PAIN, GENERAL 10/17/2013 SALLY ACCOUNTS ADMINISTRATOR, VALERIE S 724.5 BACK PAIN, GENERAL 10/17/2013 YATES DO, KARO K 724.5 BACK PAIN, GENERAL 10/17/2013 SALLY ACCOUNTS ADMINISTRATOR, VALERIE S 724.5 BACK PAIN, GENERAL 10/17/2013 SALLY ACCOUNTS ADMINISTRATOR, VALERIE S 724.5 BACK PAIN, GENERAL 10/17/2013 SALLY ACCOUNTS ADMINISTRATOR, VALERIE S 724.5 BACK PAIN, GENERAL 10/17/2013 YATES DO, KARO K 724.5 BACK PAIN, GENERAL 10/17/2013 SALLY ACCOUNTS ADMINISTRATOR, VALERIE S 724.5 BACK PAIN, GENERAL 12/03/2013 SALLY ACCOUNTS ADMINISTRATOR, VALERIE S 496 COPD 12/03/2013 SALLY ACCOUNTS ADMINISTRATOR, VALERIE S 599.0 URINARY TRACT INFECTION 12/03/2013 SALLY ACCOUNTS ADMINISTRATOR, VALERIE S 788.41 URINARY FREQUENCY 12/03/2013 SALLY ACCOUNTS ADMINISTRATOR, VALERIE S 496 COPD 12/03/2013 SALLY ACCOUNTS ADMINISTRATOR, VALERIE S 599.0 URINARY TRACT INFECTION 12/03/2013 SALLY ACCOUNTS ADMINISTRATOR, VALERIE S 788.41 URINARY FREQUENCY 12/03/2013 YATES DO, KARO K 496 COPD 12/03/2013 YATES DO, KARO K 599.0 URINARY TRACT INFECTION 12/03/2013 YATES DO, KARO K 788.41 URINARY FREQUENCY 12/03/2013 SALLY ACCOUNTS ADMINISTRATOR, VALERIE S 496 COPD 12/03/2013 SALLY ACCOUNTS ADMINISTRATOR, VALERIE S 599.0 URINARY TRACT INFECTION 12/03/2013 SALLY ACCOUNTS ADMINISTRATOR, VALERIE S 788.41 URINARY FREQUENCY 12/03/2013 YATES DO, KARO K 496 COPD 12/03/2013 YATES DO, KARO K 599.0 URINARY TRACT INFECTION 12/03/2013 YATES DO, KARO K 788.41 URINARY FREQUENCY 12/03/2013 SALLY ACCOUNTS ADMINISTRATOR, VALERIE S 496 COPD 12/03/2013 SALLY ACCOUNTS ADMINISTRATOR, VALERIE S 599.0 URINARY TRACT INFECTION 12/03/2013 SALLY ACCOUNTS ADMINISTRATOR, VALERIE S 788.41 URINARY FREQUENCY 12/03/2013 SALLY ACCOUNTS ADMINISTRATOR, VALERIE S 496 COPD 12/03/2013 SALLY ACCOUNTS ADMINISTRATOR, VALERIE S 599.0 URINARY TRACT INFECTION 12/03/2013 SALLY ACCOUNTS ADMINISTRATOR, VALERIE S 788.41 URINARY FREQUENCY 12/03/2013 SALLY ACCOUNTS ADMINISTRATOR, VALERIE S 496 COPD 12/03/2013 SALLY ACCOUNTS ADMINISTRATOR, VALERIE S 599.0 URINARY TRACT INFECTION 12/03/2013 SALLY ACCOUNTS ADMINISTRATOR, VALERIE S 788.41 URINARY FREQUENCY 12/03/2013 YATES DO, KARO K 496 COPD 12/03/2013 YATES DO, KARO K 599.0 URINARY TRACT INFECTION 12/03/2013 YATES DO, KARO K 788.41 URINARY FREQUENCY 12/03/2013 SALLY ACCOUNTS ADMINISTRATOR, VALERIE S 496 COPD 12/03/2013 SALLY ACCOUNTS ADMINISTRATOR, VALERIE S 599.0 URINARY TRACT INFECTION 12/03/2013 SALLY ACCOUNTS ADMINISTRATOR, VALERIE S 788.41 URINARY FREQUENCY 01/23/2014 YATES DO, KARO K 477.0 ALLERGIC RHINITIS DUE TO POLLEN 01/23/2014 SALLY ACCOUNTS ADMINISTRATOR, VALERIE S 477.0 ALLERGIC RHINITIS DUE TO POLLEN 01/23/2014 YATES DO, KARO K 477.0 ALLERGIC RHINITIS DUE TO POLLEN 01/23/2014 SALLY ACCOUNTS ADMINISTRATOR, VALERIE S 477.0 ALLERGIC RHINITIS DUE TO POLLEN 01/23/2014 SALLY ACCOUNTS ADMINISTRATOR, VALERIE S 477.0 ALLERGIC RHINITIS DUE TO POLLEN 01/23/2014 SALLY ACCOUNTS ADMINISTRATOR, VALERIE S 477.0 ALLERGIC RHINITIS DUE TO POLLEN 01/23/2014 YATES DO, KARO K 477.0 ALLERGIC RHINITIS DUE TO POLLEN 01/23/2014 SALLY ACCOUNTS ADMINISTRATOR, VALERIE S 477.0 ALLERGIC RHINITIS DUE TO POLLEN 02/26/2014 MIKE NICHOLSON L Ot 564.00 UNSPEC CONSTIPATION 02/26/2014 MIKE NICHOLSON Ot 788.0 RENAL COLIC 02/26/2014 MIKE NICHOLSON L Ot 789.09 ABDOMINAL PAIN, OTHER SPECIFIED SITE 03/03/2014 SALLY ACCOUNTS ADMINISTRATOR, VALERIE S 592.0 CALCULUS OF KIDNEY 03/03/2014 YATES DO, KARO K 592.0 CALCULUS OF KIDNEY 03/03/2014 SALLY ACCOUNTS ADMINISTRATOR, VALERIE S 592.0 CALCULUS OF KIDNEY 03/03/2014 SALLY ACCOUNTS ADMINISTRATOR, VALERIE S 592.0 CALCULUS OF KIDNEY 03/03/2014 SALLY ACCOUNTS ADMINISTRATOR, VALERIE S 592.0 CALCULUS OF KIDNEY 03/03/2014 YATES DO, KARO K 592.0 CALCULUS OF KIDNEY 03/03/2014 SALLY ACCOUNTS ADMINISTRATOR, VALERIE S 592.0 CALCULUS OF KIDNEY 04/07/2014 YATES DO, KARO K 789.01 ABDOMINAL PAIN RIGHT UPPER QUADRANT 04/07/2014 SALLY ACCOUNTS ADMINISTRATOR, VALERIE S 789.01 ABDOMINAL PAIN RIGHT UPPER QUADRANT 04/07/2014 SALLY ACCOUNTS ADMINISTRATOR, VALERIE S 789.01 ABDOMINAL PAIN RIGHT UPPER QUADRANT 04/07/2014 SALLY ACCOUNTS ADMINISTRATOR, VALERIE S 789.01 ABDOMINAL PAIN RIGHT UPPER QUADRANT 04/07/2014 YATES DO, KARO K 789.01 ABDOMINAL PAIN RIGHT UPPER QUADRANT 04/07/2014 SALLY ACCOUNTS ADMINISTRATOR, VALERIE S 789.01 ABDOMINAL PAIN RIGHT UPPER [...] VALERIE ZAVALA Ot 382.00 10/29/2014 VALERIE ZAVALA PAPER MACHINE TENDER Ot 401.1 10/29/2014 VALERIE ZAVALAP Ot 564.1 10/29/2014 VALERIE ZAVALA PAPER MACHINE TENDER Ot 719.40 10/29/2014 VALERIE ZAVALA PAPER MACHINE TENDER Ot 786.52 10/29/2014 VALERIE ZAVALA PAPER MACHINE TENDER Ot V76.12 10/29/2014 SEDRICK DOBSON R ACCOUNTS ADMINISTRATOR Ot 338.4 10/29/2014 BRONSON SEDRICK R ACCOUNTS ADMINISTRATOR Ot 401.1 10/29/2014 SEDRICK DOBSON R ACCOUNTS ADMINISTRATOR Ot 564.1 10/29/2014 SEDRICK DOBSON R ACCOUNTS ADMINISTRATOR Ot 719.40 10/29/2014 VALERIE ZAVALA PAPER MACHINE TENDER Ot 789.01 10/29/2014 BALTAZAR COTTER DO Ot 789.01 10/29/2014 VALERIE ZAVALA PAPER MACHINE TENDER Ot 789.09 11/03/2014 DOLORES DPM, SHERI Q [...] VALERIE ZAVALAP Ot 380.4 03/31/2015 VALERIE ZAVALA PAPER MACHINE TENDER Ot 382.00 03/31/2015 VALERIE ZAVALA PAPER MACHINE TENDER Ot 401.1 03/31/2015 VALERIE ZAVALA PAPER MACHINE TENDER Ot 564.1 03/31/2015 VALERIE ZAVALA PAPER MACHINE TENDER Ot 719.40 03/31/2015 VALERIE ZAVALA PAPER MACHINE TENDER Ot 786.52 03/31/2015 VALERIE ZAVALA PAPER MACHINE TENDER Ot V76.12 03/31/2015 BRONSON SEDRICK R ACCOUNTS ADMINISTRATOR Ot 338.4 03/31/2015 BRONSON SEDRICK R ACCOUNTS ADMINISTRATOR Ot 401.1 03/31/2015 BRONSON SEDRICK R ACCOUNTS ADMINISTRATOR Ot 564.1 03/31/2015 BRONSON SEDRICK R ACCOUNTS ADMINISTRATOR Ot 719.40 03/31/2015 VALERIE ZAVALA PAPER MACHINE TENDER Ot 789.01 03/31/2015 COTTER BALTAZAR RAMIREZ Ot 789.01 03/31/2015 VALERIE ZAVALA PAPER MACHINE TENDER Ot 789.09 03/31/2015 DOLORES DPM, SHERI Q [...] Ot 786.52 PAINFUL RESPIRATION 10/23/2015 SALLY, VALERIE PAPER MACHINE TENDER Ot V76.12 OTH SCREEN MAMMO-MALIGN NEOPLASM OF JOSIAH 10/23/2015 SEDRICK DOBSON ACCOUNTS ADMINISTRATOR Ot 338.4 CHRONIC PAIN SYNDROME 10/23/2015 SEDRICK DOBSON ACCOUNTS ADMINISTRATOR Ot 401.1 BENIGN HYPERTENSION 10/23/2015 SEDRICK DOBSON ACCOUNTS ADMINISTRATOR Ot 564.1 IRRITABLE BOWEL SYNDROME 10/23/2015 SEDRICK DOBSON ACCOUNTS ADMINISTRATOR Ot 719.40 JOINT PAIN-UNSPEC 10/23/2015 VALERIE ZAVALA PAPER MACHINE TENDER Ot 789.01 ABDOMINAL PAIN, RIGHT UPPER QUADRANT 10/23/2015 COTTER BALTAZAR RAMIREZ Delia Ot 789.01 ABDOMINAL PAIN, RIGHT UPPER QUADRANT 10/23/2015 VALERIE ZAVALA PAPER MACHINE TENDER Ot 789.09 ABDOMINAL PAIN, OTHER SPECIFIED SITE 10/23/2015 DOLORES DPM, SHERI Q Ot 735.0 HALLUX VALGUS 10/23/2015 DOLORES DPM, SHERI Q Ot 735.4 OTHER HAMMER TOE 10/23/2015 DOLORES DPM, SHERI Q Ot V72.81 OIBI-CHX-AXEDZAMZW CARDIOVASCULAR 10/23/2015 DOLORES DPM, SHERI Q Ot [...] LOWER ABDOMINAL PAIN, UNSPECIFIED 2015 SALLYVALERIE FERGUSON PAPER MACHINE TENDER Ot R10.11 RIGHT UPPER QUADRANT PAIN 11/12/2015 VALERIE ZAVALA PAPER MACHINE TENDER Ot R10.11 RIGHT UPPER QUADRANT PAIN 11/19/2015 VALERIE ZAVALA PAPER MACHINE TENDER Ot R10.11 RIGHT UPPER QUADRANT PAIN 05/29/2016 [...] LUMB/ LUMBOSAC DISC DEGEN 06/02/2016 VALERIE ZAVALA PAPER MACHINE TENDER Ot 053.9 HERPES ZOSTER NOS 06/02/2016 VALERIE ZAVALA PAPER MACHINE TENDER Ot 338.4 CHRONIC PAIN SYNDROME 06/02/2016 VALERIE ZAVALA PAPER MACHINE TENDER Ot 380.4 IMPACTED CERUMEN 06/02/2016 VALERIE ZAVALA PAPER MACHINE TENDER Ot 382.00 AC SUPP OTITIS MEDIA NOS 06/02/2016 VALERIE ZAVALA PAPER MACHINE TENDER Ot 401.1 BENIGN HYPERTENSION 06/02/2016 VALERIE ZAVALAP Ot 564.1 IRRITABLE BOWEL SYNDROME 06/02/2016 VALERIE ZAVALAP Ot 719.40 JOINT PAIN-UNSPEC 06/02/2016 VALERIE ZAVALAP Ot 786.52 PAINFUL RESPIRATION 06/02/2016 VALERIE ZAVALAP Ot V76.12 OTH SCREEN MAMMO-MALIGN NEOPLASM OF JOSIAH 06/02/2016 SEDRICK DOBSON ACCOUNTS ADMINISTRATOR Ot 338.4 CHRONIC PAIN SYNDROME 06/02/2016 SEDRICK DOBSON ACCOUNTS ADMINISTRATOR Ot 401.1 BENIGN HYPERTENSION 06/02/2016 SEDRICK DOBSON ACCOUNTS ADMINISTRATOR Ot 564.1 IRRITABLE BOWEL SYNDROME 06/02/2016 SEDRICK DOBSON ACCOUNTS ADMINISTRATOR Ot 719.40 JOINT PAIN-UNSPEC 06/02/2016 VALERIE ZAVALA Ot 789.01 ABDOMINAL PAIN, RIGHT UPPER QUADRANT 06/02/2016 BALTAZAR COTTER DO Ot 789.01 ABDOMINAL PAIN, RIGHT UPPER QUADRANT 06/02/2016 VALERIE ZAVALA Ot 789.09 ABDOMINAL PAIN, OTHER SPECIFIED SITE 06/02/2016 DOLORES DPM, SHERI Q Ot 735.0 HALLUX VALGUS 06/02/2016 DOLORES DPM, SHERI Q Ot 735.4 OTHER HAMMER TOE 06/02/2016 DOLORES DPM, SHERI Q Ot V72.81 UNFH-YOE-CEJVQOQOM CARDIOVASCULAR 06/02/2016 DOLORES DPM, SHERI Q Ot [...] G43.909 MIGRAINE, UNSP, NOT INTRACTABLE, WITHOUT 06/03/2016 RAISAS FUENTES MD Ot I10 ESSENTIAL (PRIMARY) HYPERTENSION [...] Ot F17.210 NICOTINE DEPENDENCE, CIGARETTES, UNCOMPL 06/06/2016 RAISAS FUENTES MD Ot F43.10 POST-TRAUMATIC STRESS DISORDER, [...] RIGHT ARTIFICIAL KNEE JOINT 06/25/2016 ANDREW KANG PAPER MACHINE TENDER Ot I10 ESSENTIAL (PRIMARY) HYPERTENSION 06/25/2016 ANDREW KANGP Ot J44.9 CHRONIC OBSTRUCTIVE PULMONARY DISEASE, U 06/25/2016 PEARL, ANDREW PAPER MACHINE TENDER Ot N39.0 URINARY TRACT INFECTION, SITE NOT SPECIF 06/25/2016 PEARL, ANDREW PAPER MACHINE TENDER Ot R30.0 DYSURIA 06/28/2016 PEARL ANDREW PAPER MACHINE TENDER Ot I10 ESSENTIAL (PRIMARY) HYPERTENSION 06/28/2016 PEARL ANDREW PAPER MACHINE TENDER Ot J44.9 CHRONIC OBSTRUCTIVE PULMONARY DISEASE, U 06/28/2016 PEARL, ANDREW PAPER MACHINE TENDER Ot N39.0 URINARY TRACT INFECTION, SITE NOT SPECIF 06/28/2016 PEARL ANDREW PAPER MACHINE TENDER Ot R30.0 DYSURIA 07/08/2016 BINU JAVIER MD Ot I10 ESSENTIAL (PRIMARY) HYPERTENSION 07/08/2016 BINU JAVIER MD T Ot J44.9 CHRONIC OBSTRUCTIVE PULMONARY DISEASE, U 07/08/2016 BINU JAVIER MD T Ot N32.89 OTHER SPECIFIED DISORDERS OF BLADDER 07/08/2016 BINU JAVIER MD Ot N39.0 URINARY TRACT INFECTION, SITE NOT SPECIF 07/08/2016 BINU JAVIER MD Ot R30.0 DYSURIA 07/08/2016 BINU JAVIER MD Ot Z79.899 OTHER EXCAVATOR OPERATOR (CURRENT) DRUG THERAPY 07/11/2016 BINU JAVIER MD Ot I10 ESSENTIAL (PRIMARY) HYPERTENSION 07/11/2016 BINU JAVIER MD Ot J44.9 CHRONIC OBSTRUCTIVE PULMONARY DISEASE, U 07/11/2016 BINU JAVIER MD Ot N32.89 OTHER SPECIFIED DISORDERS OF BLADDER 07/11/2016 BINU JAVIER MD Ot N39.0 URINARY TRACT INFECTION, SITE NOT SPECIF 07/11/2016 BINU JAVIER MD Ot R30.0 DYSURIA 07/11/2016 BINU JAVIER MD T Ot Z79.899 OTHER EXCAVATOR OPERATOR (CURRENT) DRUG THERAPY 07/13/2016 BINU JAVIER MD Ot I10 ESSENTIAL (PRIMARY) HYPERTENSION 07/13/2016 BINU JAVIER MD Ot J44.9 CHRONIC OBSTRUCTIVE PULMONARY DISEASE, U 07/13/2016 BINU JAVIER MD T Ot N32.89 OTHER SPECIFIED DISORDERS OF BLADDER 07/13/2016 BINU JVAIER MD Ot N39.0 URINARY TRACT INFECTION, SITE NOT SPECIF 07/13/2016 BINU JAVIER MD Ot R30.0 DYSURIA 07/13/2016 BINU JAVIER MD T Ot Z79.899 OTHER EXCAVATOR OPERATOR (CURRENT) DRUG THERAPY 08/21/2016 LORETO TIPTON DO [...] SAEED DO, LORETO K Ot Z79.899 OTHER LONGTERM (CURRENT) DRUG THERAPY 08/23/2016 SAEED DO, LORETO [...] SAEED DO, LORETO K Ot Z79.899 OTHER LONGTERM (CURRENT) DRUG THERAPY 09/18/2016 THANH MAO MD [...] WITH VOMITING, UNSPECIFIED 02/09/2017 SEDRICK DOBSON R ACCOUNTS ADMINISTRATOR Ot R10.31 RIGHT LOWER QUADRANT PAIN 02/28/2017 BRONSON SEDRICK R ACCOUNTS ADMINISTRATOR Ot R10.31 RIGHT LOWER QUADRANT PAIN 03/10/2017 BRONSON SEDRICK R ACCOUNTS ADMINISTRATOR Ot R10.31 RIGHT LOWER QUADRANT PAIN 05/17/2017 ADRIAN ZAVALAA PAPER MACHINE TENDER Ot N20.0 CALCULUS OF KIDNEY 05/17/2017 ADRIAN ZAVALAA PAPER MACHINE TENDER Ot R91.8 OTHER NONSPECIFIC ABNORMAL FINDING OF DAVID 06/02/2017 ADRIAN ZAVALAA PAPER MACHINE TENDER Ot R31.9 HEMATURIA, UNSPECIFIED 06/02/2017 ADRIAN ZAVALAA PAPER MACHINE TENDER Ot Z87.442 PERSONAL HISTORY OF URINARY CALCULI 06/07/2017 ADRIAN ZAVALAA PAPER MACHINE TENDER Ot R31.9 HEMATURIA, UNSPECIFIED 06/07/2017 SALLY, VALERIE PAPER MACHINE TENDER Ot Z87.442 PERSONAL HISTORY OF URINARY CALCULI 06/13/2017 ADRIAN ZAVALAA PAPER MACHINE TENDER Ot N20.0 CALCULUS OF KIDNEY 06/13/2017 SALLYADRIAN FERGUSONA PAPER MACHINE TENDER Ot R91.8 OTHER NONSPECIFIC ABNORMAL FINDING OF DAVID 06/16/2017 ADRIAN ZAVALAA PAPER MACHINE TENDER Ot N20.0 CALCULUS OF KIDNEY 06/16/2017 ADRIAN ZAVALAA PAPER MACHINE TENDER Ot R91.8 OTHER NONSPECIFIC ABNORMAL FINDING OF DAVID 06/23/2017 ADRIAN ZAVALAA PAPER MACHINE TENDER Ot R31.9 HEMATURIA, UNSPECIFIED 06/23/2017 ADRIAN ZAVALAA PAPER MACHINE TENDER Ot Z87.442 PERSONAL HISTORY OF URINARY CALCULI 07/21/2017 ADRIAN ZAVALAA PAPER MACHINE TENDER Ot R31.9 HEMATURIA, UNSPECIFIED 07/21/2017 ADRIAN ZAVALAA PAPER MACHINE TENDER Ot Z87.442 PERSONAL HISTORY OF URINARY CALCULI [...] LUMB/ LUMBOSAC DISC DEGEN 09/01/2017 VALERIE ZAVALA PAPER MACHINE TENDER Ot 053.9 HERPES ZOSTER NOS 09/01/2017 VALERIE ZAVALA PAPER MACHINE TENDER Ot 338.4 CHRONIC PAIN SYNDROME 09/01/2017 VALERIE ZAVALA PAPER MACHINE TENDER Ot 380.4 IMPACTED CERUMEN 09/01/2017 VALERIE ZAVALA PAPER MACHINE TENDER Ot 382.00 AC SUPP OTITIS MEDIA NOS 09/01/2017 VALERIE ZAVALA PAPER MACHINE TENDER Ot 401.1 BENIGN HYPERTENSION 09/01/2017 VALERIE ZAVALA PAPER MACHINE TENDER Ot 564.1 IRRITABLE BOWEL SYNDROME 09/01/2017 VALERIE ZAVALA PAPER MACHINE TENDER Ot 719.40 JOINT PAIN-UNSPEC 09/01/2017 VALERIE ZAVALA PAPER MACHINE TENDER Ot 786.52 PAINFUL RESPIRATION 09/01/2017 VALERIE ZAVALA PAPER MACHINE TENDER Ot V76.12 OTH SCREEN MAMMO-MALIGN NEOPLASM OF JOSIAH 09/01/2017 SEDRICK DOBSON ACCOUNTS ADMINISTRATOR Ot 338.4 CHRONIC PAIN SYNDROME 09/01/2017 SEDRICK DOBSON ACCOUNTS ADMINISTRATOR Ot 401.1 BENIGN HYPERTENSION 09/01/2017 SEDRICK DOBSON ACCOUNTS ADMINISTRATOR Ot 564.1 IRRITABLE BOWEL SYNDROME 09/01/2017 SEDRICK DOBSON ACCOUNTS ADMINISTRATOR Ot 719.40 JOINT PAIN-UNSPEC 09/01/2017 VALERIE ZAVALA PAPER MACHINE TENDER Ot 789.01 ABDOMINAL PAIN, RIGHT UPPER QUADRANT 09/01/2017 BALTAZAR COTTER DO Ot 789.01 ABDOMINAL PAIN, RIGHT UPPER QUADRANT 09/01/2017 VALERIE ZAVALAP Ot 789.09 ABDOMINAL PAIN, OTHER SPECIFIED SITE 09/01/2017 DOLORES DPM, SHERI Q Ot 735.0 HALLUX VALGUS 09/01/2017 DOLORES DPM, SHERI Q Ot 735.4 OTHER HAMMER TOE 09/01/2017 DOLORES DPM, SHERI Q Ot V72.81 [id number] CARDIOVASCULAR 09/01/2017 DOLORES DPM, SHERI Q Ot [...] FOR OTHER PREPROCEDURAL EXAMIN 09/01/2017 SEDRICK DOBSON ACCOUNTS ADMINISTRATOR Ot R10.31 RIGHT LOWER QUADRANT PAIN 09/01/2017 VALERIE ZAVALAP Ot N20.0 CALCULUS OF KIDNEY 09/01/2017 VALERIE ZAVALA Ot R91.8 OTHER NONSPECIFIC ABNORMAL FINDING OF DAVID 09/01/2017 VALERIE ZAVALAP Ot R31.9 HEMATURIA, UNSPECIFIED 09/01/2017 VALERIE ZAVALAP Ot Z87.442 PERSONAL HISTORY OF URINARY CALCULI 09/21/2017 SALLY, VALERIE PAPER MACHINE TENDER Ot Z12.31 ENCNTR SCREEN MAMMOGRAM FOR MALIGNANT NE 09/22/2017 SALLYSERINAVALERIE PAPER MACHINE TENDER Ot Z12.31 ENCNTR SCREEN MAMMOGRAM FOR MALIGNANT [...] DUE TO STEPPING ON AN 10/05/2017 CYDNEY ANDESRON APRN Ot Z79.51 LONGTERM (CURRENT) USE OF INHALED STERO 10/05/2017 CYDNEY [...] HISTORY OF COMP OF PREG, CHLDBR 11/27/2017 BIRI ABRAMS, DEB Fuller Ot Z88.2 ALLERGY STATUS [...] Procedures Code Description [place] [address] XRAY FOOT LEFT 2 VIEWS 03/16/2012 INJ TENDON SHEATH/LIGAMENT 06/29/2012 18352 XRAY FOOT RIGHT 2 VIEWS 06/29/2012 77038 XRAY FOOT LEFT 2 VIEWS 06/29/2012 72252 MRI SPINE (LUMBAR) W/O CONTRAST 07/05/2012 52014 CULTURE URINE 08/01/2012 00658 ROUTINE VENIPUNCTURE 02/04/2013 58347 URINE DRUG SCREEN (IN-HOUSE ) 02/04/2013 21509 CBC 02/04/2013 93648 CMP 02/04/2013 73764 URIC ACID 02/04/2013 87637 LIPID PANEL 02/04/2013 8180462 GFR CALC (RESULT ONLY) 02/04/2013 38246 CRP 02/04/2013 08879 ESR/SED RATE 02/04/2013 50787 ASO 02/05/2013 79480 RA FACTOR 02/05/2013 ANAANA PEMA ANALYZER (SCREEN) 02/05/2013 G0008 FLU ADMINISTRATION ( MEDICARE ONLY) 02/17/2013 18327 XRAY CHEST 2 VIEW 04/10/2013 55111 MAMMOGRAM, SCREENING 05/07/2013 86081 URINE DRUG SCREEN (IN-HOUSE ) 06/04/2013 17607 US RENAL ARTERY DOPPLER 09/12/2013 09603 XRAY S-C JOINTS 2 OR MORE VIEWS 10/17/2013 29833 XRAY PELVIS 1 OR 2 VIEWS 10/17/2013 Physical Physical Therapy, [facility] 10/17/2013 72885 ROUTINE VENIPUNCTURE 02/18/2014 6954272 GFR CALC (RESULT ONLY) 02/18/2014 40925 CMP 02/18/2014 16421 LIPID PANEL 02/18/2014 Urology Frank Cole 03/03/2014 25411 UA W/ CULTURE IF INDICATED 04/07/2014 16458 US GALLBLADDER ULTRASOUND 04/07/2014 43863 HIDA SCAN 04/07/2014 General S Baltazar Cotter 04/29/2014 07294 UA LONG DIP 05/31/2014 35907 ROUTINE VENIPUNCTURE 06/04/2014 5880202 GFR CALC (RESULT ONLY) 06/04/2014 37272 CMP 06/04/2014 26329 CBC 06/04/2014 30927 CELIAC DISEASE ANALYZER 06/06/2014 23231 N-METHYLHISTAMINE, 24HR URINE 06/19/2014 31854 XRAY KNEE RIGHT 3 VIEWS 08/25/2014 Albaro [...] - 05/29/16 16:50 Bacterial blood culture NG [facility] Bacterial blood culture - 05/29/16 17:02 Bacterial blood culture NG [facility] Complete blood count (CBC) with automated white [...] culture - 06/02/16 17:06 Bacterial urine culture [id number] NRG COLONY COUNT >100,000/ML NR FTX;REPORTABLE SENSITIVITY REPORTED 06/03 16:25 [facility] Bacterial susceptibility panel - 06/02/16 17:06 Gentamicin [...] susceptibility test by minimum inhibitory concentration - [facility] Urine osmolality - 06/02/16 17:06 Urine osmolality [...] culture - 06/25/16 13:40 Bacterial urine culture [id number] NRG COLONY COUNT 10,000/ML - 100,000/ML NRG FTX;REPORTABLE SENSITIVITIES REPORTED AT 0849, 06-27-16 NR URINE CULTURE RESULTS PLUS [facility] Bacterial susceptibility panel - 06/25/16 13:40 Gentamicin [...] susceptibility test by minimum inhibitory concentration - [facility] Bacterial susceptibility panel - 06/25/16 13:40 Gentamicin [...] culture - 07/08/16 16:35 Bacterial urine culture [id number] NRG COLONY COUNT >100,000/ML NRG FTX;REPORTABLE SENSITIVITY [...] culture - 08/21/16 18:45 Bacterial urine culture [id number] NRG COLONY COUNT >100,000/ML NRG FTX;REPORTABLE SENSITIVITY [...] Status Pt. Type Provider Facility Loc./Unit Complaint [id number] 08/25/2014 15:28:00 08/25/2014 23:59:59 CLS Outpatient VALERIE ZAVALA APRN [id number] 07/14/2014 09:55:00 07/14/2014 23:59:59 CLS Outpatient MILAN RAMIREZKARO [place] [id number] 05/31/2014 09:29:00 05/31/2014 23:59:59 CLS Outpatient VALERIE ZAVALA APRN [id number] 05/31/2014 09:29:00 05/31/2014 23:59:59 CLS Outpatient VALERIE ZAVALA APRN [id number] 04/07/2014 12:21:00 04/07/2014 23:59:59 CLS Outpatient VALERIE ZAVALA APRN [id number] 04/07/2014 12:21:00 04/07/2014 23:59:59 CLS Outpatient MILAN DO KARO Gonsalez [id number] 02/18/2014 13:43:00 02/18/2014 23:59:59 CLS Outpatient SALLY ACCOUNTS ADMINISTRATORADRIANA S [id number] 01/23/2014 17:27:00 01/23/2014 23:59:59 CLS Outpatient MILAN RAMIREZ KARO Gonsalez [id number] 12/03/2013 09:16:00 12/03/2013 23:59:59 CLS Outpatient SALLY ACCOUNTS ADMINISTRATORSERINAVALERIE S [id number] 12/03/2013 09:16:00 12/03/2013 23:59:59 CLS Outpatient SALLY ACCOUNTS ADMINISTRATORSERINAVALERIE S [id number] 10/17/2013 13:45:00 10/17/2013 23:59:59 CLS Outpatient SALLY ACCOUNTS ADMINISTRATORSERINAVALERIE S [id number] 09/09/2013 10:47:00 09/09/2013 23:59:59 CLS Outpatient SALLY ACCOUNTS ADMINISTRATORSERINAVALERIE S [id number] 06/04/2013 10:50:00 06/04/2013 23:59:59 CLS Outpatient SALLY ACCOUNTS ADMINISTRATORSERINAVALERIE S [id number] 06/04/2013 10:50:00 06/04/2013 23:59:59 CLS Outpatient SALLY ACCOUNTS ADMINISTRATORSERINAVALERIE S [id number] 05/07/2013 11:28:00 05/07/2013 23:59:59 CLS Outpatient SALLY ACCOUNTS ADMINISTRATORSERINAVALERIE S [id number] 04/10/2013 16:12:00 04/10/2013 23:59:59 CLS Outpatient SALLY ACCOUNTS ADMINISTRATORSERINAVALERIE S [id number] 04/10/2013 16:12:00 04/10/2013 23:59:59 CLS Outpatient YATES DOKARO [id number] 04/06/2013 11:17:00 04/06/2013 23:59:59 CLS Outpatient MILAN KARO [id number] 04/02/2013 10:20:00 04/02/2013 23:59:59 CLS Outpatient SALLY ACCOUNTS ADMINISTRATORSERINAVALERIE S [id number] 02/04/2013 11:19:00 02/04/2013 23:59:59 CLS Outpatient MICHELLE CAMARGO MD [id number] 02/04/2013 11:19:00 02/04/2013 23:59:59 CLS Outpatient VALERIE ZAVALA APRN [id number] 08/10/2012 09:19:00 08/10/2012 23:59:59 CLS Outpatient KARO YATES DO [id number] 07/30/2012 08:25:00 07/30/2012 23:59:59 CLS Outpatient SALLY PERSAUDNVALERIE S [id number] 07/04/2012 13:20:00 07/04/2012 23:59:59 CLS Outpatient SALLY PERSAUDNVALERIE S [id number] 06/29/2012 08:10:00 06/29/2012 23:59:59 CLS Outpatient KARO YATES DO [place] [id number] 06/13/2012 14:07:00 06/13/2012 23:59:59 CLS Outpatient VALERIE ZAVALA APRN [id number] 06/05/2012 11:37:00 06/05/2012 23:59:59 CLS Outpatient [id number] 05/29/2012 16:36:00 05/29/2012 23:59:59 CLS Outpatient ZORAIDA ESPAÑA APRN [id number] 03/30/2012 09:50:00 03/30/2012 23:59:59 CLS Outpatient KARO YATES DO [place] [id number] 02/14/2012 13:28:00 02/14/2012 23:59:59 CLS Outpatient KARO YATES DO [place] [id number] 11/13/2012 14:22:00 Document Registration [id number] 11/13/2012 14:22:00 Document Registration [id number] 09/21/2012 09:46:00 Document Registration [id number] 01/02/2015 04:06:53 ACT Document Registration [id number] 12/30/2017 21:24:00 01/01/2018 12:20:00 DIS Inpatient GINA ABRAMS, RAISSA Talley [facility] 4TH CARDIOGENIC HYPOTENSION, ABD PAIN,UTI [id number] 11/27/2017 15:12:00 11/27/2017 17:52:00 DIS Emergency BRII ABRAMS, DEB Fuller [facility] ER HIGH BP;UTI [id number] 10/05/2017 15:40:00 10/05/2017 16:50:00 DIS Emergency CYDNEY ANDERSON ACCOUNTS ADMINISTRATOR [facility] ER FALL;R KNEE [id number] 09/21/2017 13:41:00 09/21/2017 23:59:59 CLS Outpatient VALERIE ZAVALA [facility] RAD Z12.31 SCREENING MAMMO [id number] 09/04/2017 08:30:00 09/04/2017 23:59:59 CLS Preadmit AUDIE ROBISON MD [facility] ENDO GERD/WT LOSS [id number] 08/28/2017 05:38:00 08/28/2017 09:34:00 DIS Outpatient AUDIE ROBISON MD [facility] PREOP EGD [id number] 06/01/2017 14:47:00 06/01/2017 23:59:59 CLS Outpatient VALERIE ZAVALA [facility] RAD R31.9 HEMATURIA [id number] 05/16/2017 11:28:00 05/16/2017 23:59:59 CLS Outpatient VALERIE ZAVALA [facility] RAD R10.31 RIGHT LOWER QUADRANT ABDOMINAL PAIN [id number] 02/08/2017 14:15:00 02/08/2017 23:59:59 CLS Outpatient SEDRICK DOBSON ACCOUNTS ADMINISTRATOR [facility] LAB R10.31 [id number] 09/18/2016 11:44:00 09/18/2016 15:05:00 DIS Emergency MAYCO ABRAMS, THANH June [facility] ER ABD PAIN [id number] 08/21/2016 17:56:00 08/21/2016 20:28:00 DIS Emergency LORETO TIPTON DO [facility] ER UTI SYMPTOMS [id number] 07/08/2016 15:53:00 07/08/2016 17:45:00 DIS Emergency BINU JAVIER MD [facility] ER UTI SX [id number] 06/25/2016 13:23:00 06/25/2016 14:34:00 DIS Emergency ANDREW KANG [facility] ER UTI SYMPTOMS [id number] 06/23/2016 05:59:00 06/23/2016 23:59:59 CLS Outpatient AUDIE ROBISON MD [facility] PREOP GERD [id number] 06/02/2016 01:23:00 06/03/2016 12:15:00 DIS Inpatient RAISSA FUENTES MD [facility] ICU COPD EXACERBATION [id number] 05/29/2016 15:59:00 05/29/2016 18:15:00 DIS Emergency CYDNEY ANDERSON APRN [facility] ER COUGH/DIFF BREATHING/ WEAKNESS [id number] 10/23/2015 08:47:00 10/23/2015 23:59:59 CLS Outpatient VALERIE ZAVALA [facility] RAD RUQ ABD PAIN [id number] 10/23/2015 13:52:00 10/23/2015 16:58:00 DIS Emergency MIKAELA MIN MD [facility] ER ABD PAIN [id number] 08/12/2015 13:46:00 08/12/2015 23:59:59 CLS Preadmit VALERIE ZAVALA [facility] REHAB [id number] 03/31/2015 12:24:00 03/31/2015 23:59:59 CLS Outpatient ALBARO PARADA MD [facility] RAD LUMBAR RADICULOPATHY [id number] 01/07/2015 06:00:00 01/10/2015 11:06:00 DIS Inpatient ALBARO PARADA MD [facility] SURGICAL RIGHT KNEE SEVERE OSTEOARTHRITIS [id number] 01/01/2015 09:52:00 01/01/2015 23:59:59 CLS Outpatient ALBARO PARADA MD [facility] PREOP RIGHT KNEE SEVERE OSTEOARTHRITIS [id number] 11/03/2014 07:51:00 11/03/2014 16:15:00 DIS Outpatient DOLORES DPM, SHERI Q [facility] SDC HAMMER TOE LT GREAT TOE [id number] 10/29/2014 10:29:00 10/29/2014 23:59:59 CLS Outpatient DOLORES DPM, SHERI Q [facility] PREOP HAMMERTOE LEFT FOOT [id number] 06/11/2014 09:17:00 06/11/2014 23:59:59 CLS Outpatient VALERIE ZAVALA [facility] RAD RIGHT FLANK PAIN FOR 3 MONTHS [id number] 05/23/2014 08:31:00 05/23/2014 23:59:59 CLS Outpatient BALTAZAR COTTER DO D [facility] CARD RUQ PAIN [id number] 04/22/2014 09:15:00 04/22/2014 23:59:59 CLS Outpatient VALERIE ZAVALA [facility] RAD MID EPIGASTRIC PAIN, RADIATING TO RT [id number] 02/26/2014 14:09:00 02/26/2014 16:55:00 DIS Emergency MIKE NICHOLSON [facility] ER RIGHT FLANK PAIN [id number] 10/23/2013 08:33:00 10/23/2013 23:59:59 CLS Outpatient SEDRICK DOBSON APRN [facility] RAD UNCONTROLLED BP [id number] 09/20/2013 13:33:00 09/20/2013 23:59:59 CLS Outpatient VALERIE ZAVALA [facility] RAD UNCONTROLLED BLOOD PRESSURE [id number] 12/28/2017 14:02:00 Document Registration [id number] 12/20/2017 13:25:00 Document Registration [id number] 10/29/2014 10:48:00 Document Registration [id number] 10/29/2014 10:48:00 Document Registration [id number] 10/29/2014 10:48:00 Document Registration [id number] 10/29/2014 10:42:00 Document Registration [id number] 06/28/2012 15:25:00 Document Registration [id number] 06/25/2012 10:52:00 Document Registration [id number] 02/20/2012 05:51:00 Document Registration [id number] 02/14/2012 11:58:00 Document Registration [id number] 12/05/2011 11:16:00 Document Registration [id number] 10/03/2011 13:46:00 Document Registration [id number] 09/18/2011 15:35:00 Document Registration [id number] 07/10/2011 13:03:00 Document Registration [id number] 07/06/2011 18:15:00 Document Registration [id number] 06/16/2011 08:58:00 Document Registration [id number] 04/26/2011 05:37:00 Document Registration [id number] 04/20/2011 09:35:00 Document Registration [id number] 02/27/2011 19:11:00 Document Registration [id number] 01/31/2011 14:13:00 Document Registration [id number] 11/07/2010 19:22:00 Document Registration [id number] 10/11/2010 14:04:00 Document Registration [id number] 09/06/2010 17:52:00 Document Registration [id number] 08/23/2010 11:02:00 Document Registration [id number] 08/18/2010 06:59:00 Document Registration [id number] 05/20/2010 10:20:00 Document Registration [id number] 10/30/2009 09:41:00 Document Registration [id number] 05/03/2016 08:06:00 Document Registration [id number] 11/28/2017 15:00:00 11/28/2017 23:59:59 [facility] Outpatient VALERIE ZAVALA APRN [facility] [id number] 11/27/2017 11:40:00 Document Registration [id number] 10/30/2017 16:40:00 Document Registration [id number] 09/20/2017 13:40:00 Document Registration [id number] 05/03/2017 11:20:00 Document Registration [id number] 04/19/2017 10:40:00 Document Registration [id number] 03/23/2017 12:20:00 Document Registration
[2018-01-17] MEDS ORDERED: HYDROcodone/APAP 5 MG/325 MG (LORTAB) TAB PO STA (17:52)
[2018-01-17] MEDS ORDERED: LEVOFLOXACIN 500 MG TAB (LEVAQUIN) PO STA (17:53)
[2018-01-17] MEDS ORDERED: amLODIPine 5 MG (NORVASC) TAB PO ONE (18:00)
[2018-01-17] MEDS ORDERED: TRAM50TA2 PO (18:03)
[2018-01-17] MEDS ORDERED: LEVO250T46 PO (18:03)
[2018-01-17] MEDS ORDERED: cloNIDine 0.1 MG (CATAPRES) TAB PO ONE (19:00)
[2018-01-17 19:50] VITALS: BP 176/106
== END 2018-01-17 19:51 | disposition home or self-care (01) ==
LOC: EDUNIT# 16:20 → ER 16:21
DX: I10 Essential (primary) hypertension (principal); N39.0 Urinary tract infection, site not specified; K21.9 Gastro-esophageal reflux disease without esophagitis; G43.909 Migraine, unspecified, not intractable, without status migrainosus; J43.9 Emphysema, unspecified; F41.9 Anxiety disorder, unspecified; F32.9 Major depressive disorder, single episode, unspecified; F43.10 Post-traumatic stress disorder, unspecified; M81.0 Age-related osteoporosis without current pathological fracture; F17.210 Nicotine dependence, cigarettes, uncomplicated; Z87.01 Personal history of pneumonia (recurrent); Z87.448 Personal history of other diseases of urinary system; Z82.49 Family history of ischemic heart disease and other diseases of the circulatory system; Z87.19 Personal history of other diseases of the digestive system; Z90.710 Acquired absence of both cervix and uterus; Z98.890 Other specified postprocedural states; Z90.89 Acquired absence of other organs; Z88.2 Allergy status to sulfonamides; Z91.048 Other nonmedicinal substance allergy status; Z88.8 Allergy status to other drugs, medicaments and biological substances; Z79.51 Long term (current) use of inhaled steroids
CPT/HCPCS: 36415; 80053; 80306; 81000; 85025; 86141; 96361; 96374

== ENCOUNTER → 2018-01-29 | Outpatient (CLI) | payer MEDICARE, MEDICAID ==
[~2018-01-29] MED LIST changes: +ASPI-983 PO; +ATOR80TA76 PO; +CLOP75TA28 PO; +LEVO250T46 PO; +OMG1KC PO
[2018-01-29 11:41] LABS: BASOPHILS # (AUTO) 0.1 10^3/uL (0.0-0.1); BASOPHILS % (AUTO) 1 % (0-10); EOSINOPHILS # (AUTO) 0.1 10^3/uL (0.0-0.3); EOSINOPHILS % (AUTO) 2 % (0-10); HEMATOCRIT 40 % (35-52); HEMOGLOBIN 13.2 G/DL (11.5-16.0); LYMPHOCYTES # (AUTO) 2.2 X 10^3 (1.0-4.0); LYMPHOCYTES % (AUTO) 35 % (12-44); MEAN CORPUSCULAR HEMOGLOBIN 34 PG (25-34); MEAN CORPUSCULAR HGB CONC 33 G/DL (32-36); MEAN CORPUSCULAR VOLUME 104 FL (80-99); MEAN PLATELET VOLUME 8.2 FL (7.4-10.4); MONOCYTES # (AUTO) 0.6 X 10^3 (0.0-1.0); MONOCYTES % (AUTO) 10 % (0-12); NEUTROPHILS # (AUTO) 3.4 X 10^3 (1.8-7.8); NEUTROPHILS % (AUTO) 53 % (42-75); PLATELET COUNT 353 10^3/uL (130-400); RED BLOOD COUNT 3.87 10^6/uL (4.35-5.85); RED CELL DISTRIBUTION WIDTH 12.9 % (10.0-14.5); WHITE BLOOD COUNT 6.4 10^3/uL (4.3-11.0)
[2018-01-29 11:42] LABS: CLARITY,URINE CLEAR; COLOR,URINE RED; GLUCOSE, URINE (UA) NEGATIVE (NEGATIVE); KETONES,URINE NEGATIVE (NEGATIVE); LEUKOCYTE ESTERASE ,URINE 1+ (NEGATIVE); NITRITE,URINE POSITIVE (NEGATIVE); PH,URINE 6 (5-9); PROTEIN,URINE 2+ (NEGATIVE); UROBILINOGEN,URINE 1 MG/DL (NORMAL)
[2018-01-29 11:52] LABS: BACTERIA,URINE NEGATIVE /HPF; BILIRUBIN,URINE 1+ (NEGATIVE); WBC,URINE 0-2 /HPF
[2018-01-29 12:11] LABS: ALANINE AMINOTRANSFERASE 58 U/L (0-55); ALBUMIN 4.1 GM/DL (3.2-4.5); ALKALINE PHOSPHATASE 92 U/L (40-136); BILIRUBIN,TOTAL 0.4 MG/DL (0.1-1.0); BUN/CREATININE RATIO 19; CALCIUM 9.5 MG/DL (8.5-10.1); CARBON DIOXIDE 22 MMOL/L (21-32); CHLORIDE 98 MMOL/L (98-107); GFR ESTIMATED > 60; GLUCOSE 85 MG/DL (70-105); POTASSIUM 4.1 MMOL/L (3.6-5.0); SODIUM 129 MMOL/L (135-145); TOTAL PROTEIN 7.6 GM/DL (6.4-8.2)
== END ==
LOC: LAB 11:09
PROVIDERS: ATTEND Internal Medicine
DX: N20.0 Calculus of kidney (principal); R82.99 Other abnormal findings in urine
CPT/HCPCS: 36415; 80053; 81000; 82043; 85025

== ENCOUNTER 2018-02-12 18:10 | Inpatient (IN) | payer MEDICARE, MEDICAID ==
[~2018-02-12] VITALS: Ht 162.6 cm; Wt 63.0 kg
[~2018-02-12 18:10] MED LIST changes: -ASPI-983 PO; -ATOR80TA76 PO; -CLOP75TA28 PO; -OMG1KC PO
[2018-02-12 18:40] LABS: BASOPHILS % (AUTO) 1 % (0-10); EOSINOPHILS # (AUTO) 0.1 10^3/uL (0.0-0.3); EOSINOPHILS % (AUTO) 2 % (0-10); HEMATOCRIT 38 % (35-52); HEMOGLOBIN 12.8 G/DL (11.5-16.0); LYMPHOCYTES # (AUTO) 2.3 X 10^3 (1.0-4.0); LYMPHOCYTES % (AUTO) 41 % (12-44); MEAN CORPUSCULAR HEMOGLOBIN 35 PG (25-34); MEAN CORPUSCULAR HGB CONC 33 G/DL (32-36); MEAN CORPUSCULAR VOLUME 104 FL (80-99); MEAN PLATELET VOLUME 9.4 FL (7.4-10.4); MONOCYTES # (AUTO) 0.6 X 10^3 (0.0-1.0); MONOCYTES % (AUTO) 12 % (0-12); NEUTROPHILS # (AUTO) 2.5 X 10^3 (1.8-7.8); NEUTROPHILS % (AUTO) 45 % (42-75); PLATELET COUNT 254 10^3/uL (130-400); RED CELL DISTRIBUTION WIDTH 13.3 % (10.0-14.5); WHITE BLOOD COUNT 5.6 10^3/uL (4.3-11.0)
[2018-02-12] MEDS ORDERED: ASPIRIN 81 MG CHEW (CHILDREN'S ASA) PO ONE (18:45)
[2018-02-12 18:52] LABS: INR 0.9 (0.8-1.4); PROTHROMBIN TIME PATIENT 12.2 SEC (12.2-14.7)
--- NOTE | 2018-02-12 18:55 | Diagnostic Imaging Report ---
EXAMINATION: Portable chest. INDICATION: Chest pressure and burning. COMPARISON: Comparison made with prior study from December 30, 2017. FINDINGS: Lungs demonstrate no focal alveolar consolidation or effusion. There is no pneumothorax. Heart size and mediastinal contours appear appropriate without evidence of interval change. Pulmonary vascularity appears normal. There is no acute osseous abnormality. IMPRESSION: 1. Stable radiographic appearance of the chest. No acute cardiopulmonary process demonstrated. Dictated by: Dictated on workstation # [id number]
[2018-02-12 18:56] LABS: ALANINE AMINOTRANSFERASE 72 U/L (0-55); ALKALINE PHOSPHATASE 77 U/L (40-136); BILIRUBIN,TOTAL 0.3 MG/DL (0.1-1.0); BUN/CREATININE RATIO 11; CALCIUM 9.2 MG/DL (8.5-10.1); CARBON DIOXIDE 23 MMOL/L (21-32); CHLORIDE 98 MMOL/L (98-107); CREATININE SERUM 0.85 MG/DL (0.60-1.30); GFR ESTIMATED > 60; GLUCOSE 115 MG/DL (70-105); LIPASE 25 U/L (8-78); POTASSIUM 3.6 MMOL/L (3.6-5.0); SODIUM 131 MMOL/L (135-145); TOTAL PROTEIN 7.2 GM/DL (6.4-8.2)
--- NOTE | 2018-02-12 18:58 | ED Chest Pain ---
General Chief Complaint: Chest Pain Stated Complaint: CHEST PRESSURE/BURNING/BILAT ARM WEAKNESS Nursing Triage Note: PT PRESENTS TO ER WITH COMPLAINT OF CHEST PAIN. PT STATES IT HAS BEEN GOING ON FOR A FEW DAYS BUT WORSENED AN HOUR AGO. STATES THE PAIN RADIATES DOWN HER ARMS AND THEY FEEL NUMB. STATES IT FEELS LIKE HER COPD AND/OR HEARTBURN. Nursing Sepsis Screen: No Definite Risk Source: patient Exam Limitations: no limitations History of Present Illness Date Seen by Provider: Feb 12, 2018 Time Seen by Provider: 18:40 Initial Comments Here with report of central chest burning and tightness as well as pressure. Onset about 2 hours ago and is still present. States that her arms felt heavy. Wonders if it may be her COPD but could be heartburn. She tried using her MDI albuterol at home and that did not change the symptoms. She does smoke but states today is her last day. Recently has had a evaluation by both Dr. Andrade and Dr. Best. Has had some nausea with the burning. States that she has tightness in her chest with breathing. Timing/Duration: getting worse, 1-2 days Severity/Quality: moderate, burning, pressure, tightness Location: central Radiation: arms Activities at Onset: none Prior CP/Workup: echocardiography ASA po PENSION AGENT: No NTG SL PENSION AGENT: No Associated Symptoms: No abdominal pain, No back pain, No diaphoresis, No dizziness; fatigue; No fever/chills; nausea/vomiting, shortness of breath, weakness Allergies and Home Medications Allergies Coded Allergies: Sulfa (Sulfonamide Antibiotics) (Verified Allergy, Unknown, 01/13/18) adhesive (Verified Allergy, Unknown, 12/31/17) fentanyl adhesive meperidine (Verified Allergy, Unknown, HALLUCINATIONS, 12/31/17) pregabalin (Verified Allergy, Unknown, 12/31/17) Home Medications Acetaminophen with Codeine 1 Each Tablet, 1 TAB PO Q6H PRN for PAIN-MODERATE, ( Reported) Albuterol Sulfate 1 Puff Puff, 2 PUFF IH Q4H PRN for SHORTNESS OF BREATH, ( Reported) 1 PUFF = 90 MCG Amlodipine Besylate 5 Mg Tablet, 5 MG PO DAILY, (Reported) Cefuroxime Axetil 500 Mg Tablet, 500 MG PO BID Prescribed by: CYDNEY ANDERSON on 01/13/18 1421 Chlordiazepoxide HCl 10 Mg Capsule, 20 MG PO TID, (Reported) TAKES 2 (10MG) CAPSULES Dicyclomine HCl 20 Mg Tablet, 20 MG PO TID PRN for IBS, (Reported) Lansoprazole 30 Mg Capsule.dr, 30 MG PO DAILY, (Reported) Levofloxacin 250 Mg Tablet, 250 MG PO DAILY Prescribed by: SONAM MCCABE on 01/17/181802 Lisinopril 20 Mg Tablet, 20 MG PO DAILY, (Reported) Melatonin 3 Mg Tablet, 3 MG PO HS PRN for SLEEP, (Reported) Methocarbamol 500 Mg Tablet, 500 MG PO QID PRN for MUSCLE SPASMS, (Reported) Metoprolol Succinate 50 Mg Tab.er.24h, 50 MG PO DAILY Prescribed by: RAVINDRA ROB on 12/22/172016 Nitrofurantoin Macrocrystal 100 Mg Capsule, 100 MG PO DAILY, (Reported) Omeprazole Magnesium 20 Mg Tablet.dr, 40 MG PO BID 40 MG TWICE A DAY Prescribed by: BRIGETTE MORENO on 01/01/18 1109 Phenazopyridine HCl 100 Mg Tablet, 100 MG PO TID Prescribed by: CYDNEY ANDERSON on 01/13/18 1421 Sodium Chloride 30 Ml [place], 1-2 SPRAYS NS DAILY PRN for CONGESTION, (Reported) Sucralfate 1 Gm Tablet, 1 GM PO TID Prescribed by: AUDIE ROBISON on 01/01/18 0805 Sucralfate 1 Gm Tablet, 1 GM PO TID Prescribed by: BRIGETTE MORENO on 01/01/18 1053 Tramadol HCl 50 Mg Tablet, 50 MG PO Q6H PRN for PAIN Prescribed by: SONAM MCCABE on 01/17/181802 Patient Home Medication List Home Medication List Reviewed: Yes Review of Systems Review of Systems Constitutional: see HPI; No chills, No fever EENTM: No Symptoms Reported Respiratory: See HPI; Denies Cough; Shortness of Air Cardiovascular: Chest Pain; Denies Edema Gastrointestinal: See HPI, Abdominal Pain, Nausea; Denies Vomiting Genitourinary: No Symptoms Reported Musculoskeletal: no symptoms reported Skin: no symptoms reported Psychiatric/Neurological: No Symptoms Reported All Other Systems Reviewed Negative Unless Noted: Yes Past Aybeovy-Pywahy-Ribvso Hx Past Med/Social Hx: Reviewed Nursing Past Med/Soc Hx Patient Social History Alcohol Use: Denies Use Recreational Drug Use: No Smoking Status: Current Everyday Smoker Type Used: Cigarettes 2nd Hand Smoke Exposure: Yes Recent Foreign Travel: No Contact w/Someone Who Travel: No Recent Infectious Disease Expo: No Recent Hopitalizations: No Immunizations Up To Date Tetanus Booster (TDap): Less than 5yrs Date of Pneumonia Vaccine: Feb 27, 2017 Date of Influenza Vaccine: Feb 27, 2017 Seasonal Allergies Seasonal Allergies: Yes Past Medical History Surgeries: Yes (ADHESIOLYSIS X3, LEFT FOOT X2, C/S X2, HYSTERECTOMY, RIGHT KNEE ) Abdominal, Section, Hysterectomy, Joint Replacement, Orthopedic, Tonsillectomy Respiratory: Yes Pneumonia, COPD, Emphysema Currently Using CPAP: No Currently Using BIPAP: No Cardiac: Yes Hypertension, Hypotension Neurological: No Headaches /Migraines 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 Disorders: No Sexually Transmitted Disease: No HIV/AIDS: No Genitourinary: Yes Kidney Infection, Kidney Stones, UTI-Chronic Gastrointestinal: Yes Gastroesophageal Reflux, Chronic Constipation, Irritable Bowel Musculoskeletal: Yes ("KNEE AND BACK PROBLEMS" "BULGING DISCS" ) Degenerate Disk Disease, Osteoporosis, Arthritis, Fibromyalgia, Chronic Back Pain Endocrine: No HEENT: No Loss of Vision: Bilateral Hearing Impairment: Denies Cancer: No Psychosocial: Yes (Pt states she had Bulemia years ago and lowest weight was 94 lbs ) Anxiety, PTSD, Depression Integumentary: No Blood Disorders: Yes (HX OF ANEMIA) Adverse Reaction/Blood Tranf: No (HAS FLUSHING BUT NO REACTION) Family Medical History Reviewed Nursing Family Hx Abdominal aortic aneurysm Alzheimer's disease 19 MOTHER Cardiovascular disease 19 FATHER ( AT 46 FROM HEART ATTACK) G8 SISTER Hypercholesterolemia 19 FATHER Hypertension 19 FATHER 19 MOTHER Myocardial infarction 19 FATHER Thyroid disease 19 MOTHER G8 SISTER CAD Under 55 Years Old, Hypertension Physical Exam Vital Signs Vital Signs - First Documented 02/12/18 18:20 Temp 96.2 Pulse 61 Resp 17 B/P (MAP) 124/91 (102) Pulse Ox 99 O2 Delivery Room Air Capillary Refill : Less Than 3 Seconds Height, Weight, BMI Height: 5'4.00" Weight: 128lbs. 0.0oz. 58.457347ow; 22.8 BMI Method:Stated General Appearance: No Apparent Distress, WD/WN HEENT: PERRL/EOMI, Pharynx Normal Neck: Non Tender, Supple Respiratory: Lungs Clear, Normal Breath Sounds Cardiovascular: Regular Rate, Rhythm, Normal Peripheral Pulses Gastrointestinal: Non Tender, Soft Extremity: Normal Range of Motion, Non Tender 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: Alert, Oriented x3 Skin: Normal Color, Warm/Dry Progress/Results/Core Measures Results/Orders Lab Results Laboratory Tests Test 02/12/18 18:30 02/12/18 20:43 Range/Units White Blood Count 5.6 4.3-11.0 10^3/uL Red Blood Count 3.70 L 4.35-5.85 10^6/uL Hemoglobin 12.8 11.5-16.0 G/DL Hematocrit 38 35-52 % Mean Corpuscular Volume 104 H 80-99 FL Mean Corpuscular Hemoglobin 35 H 25-34 PG Mean Corpuscular Hemoglobin Concent 33 32-36 G/DL Red Cell Distribution Width 13.3 10.0-14.5 % Platelet Count 254 130-400 10^3/uL Mean Platelet Volume 9.4 7.4-10.4 FL Neutrophils (%) (Auto) 45 42-75 % Lymphocytes (%) (Auto) 41 12-44 % Monocytes (%) (Auto) 12 0-12 % Eosinophils (%) (Auto) 2 0-10 % Basophils (%) (Auto) 1 0-10 % Neutrophils # (Auto) 2.5 1.8-7.8 X 10^3 Lymphocytes # (Auto) 2.3 1.0-4.0 X 10^3 Monocytes # (Auto) 0.6 0.0-1.0 X 10^3 Eosinophils # (Auto) 0.1 0.0-0.3 10^3/uL Basophils # (Auto) 0.0 0.0-0.1 10^3/uL Prothrombin Time 12.2 12.2-14.7 SEC INR Comment 0.9 0.8-1.4 Activated Partial Thromboplast Time 26 24-35 SEC D-Dimer 2.57 H 0.00-0.49 UG/ML Sodium Level 131 L 135-145 MMOL/L Potassium Level 3.6 3.6-5.0 MMOL/L Chloride Level 98 98-107 MMOL/L Carbon Dioxide Level 23 21-32 MMOL/L Anion Gap 10 5-14 MMOL/L Blood Urea Nitrogen 9 7-18 MG/DL Creatinine 0.85 0.60-1.30 MG/DL Estimat Glomerular Filtration Rate > 60 BUN/Creatinine Ratio 11 Glucose Level 115 H 70-105 MG/DL Calcium Level 9.2 8.5-10.1 MG/DL Corrected Calcium 9.2 8.5-10.1 MG/DL Magnesium Level 2.0 1.8-2.4 MG/DL Total Bilirubin 0.3 0.1-1.0 MG/DL Aspartate Amino Transf (AST/SGOT) 58 H 5-34 U/L Alanine Aminotransferase (ALT/SGPT) 72 H 0-55 U/L Alkaline Phosphatase 77 40-136 U/L Myoglobin 23.4 248.5 H 10.0-92.0 NG/ML Troponin I < 0.30 0.82 *H <0.30 NG/ML Total Protein 7.2 6.4-8.2 GM/DL Albumin 4.0 3.2-4.5 GM/DL Lipase 25 8-78 U/L My Orders Orders - SONAM MCCABE MD Cbc With Automated Diff (02/12/18:33) Magnesium (02/12/18:33) Chest 1 View, Ap/Pa Only (02/12/18:33) Ekg Tracing (02/12/18 18:33) Cardiac Profile 1 (02/12/18 18:33) Comprehensive Metabolic Panel (02/12/18:) Myoglobin Serum (02/12/18:) Protime With Inr (02/12/18:) Partial Thromboplastin Time (02/12/18 18:33) O2 (02/12/18 18:33) Monitor-Rhythm Ecg Trace Only (02/12/18:) Lipid Panel (02/13/18 06:00) Aspirin Chewable Tablet (Baby Aspirin Ch (02/12/18 18:45) Saline Lock/Iv-Start (02/12/18 18:33) Lipase (02/12/18 18:33) Fibrin Degradation Products (02/12/18:33) Albuterol/Ipra Inhalation Soln (Duoneb I (02/12/18 19:00) Lidocaine 2% Viscous 15 Ml (Xylocaine Vi (02/12/18 19:00) Antacid Suspension (Mylanta Suspension (02/12/18 19:00) Svn Small Volume Nebulizer (02/12/18 18:51) Ct Angio Chest W (02/12/18 19:07) Saline Lock/Iv-Start (02/12/18 19:07) Ns Iv 1000 Ml (Sodium Chloride 0.9%) (02/12/18 19:07) Iohexol Injection (Omnipaque 350 Mg/Ml 1 (02/12/18 19:15) Ns (Ivpb) (Sodium Chloride 0.9%) (02/12/18 19:15) Troponin I (02/12/18 20:07) Myoglobin Serum (02/12/18 20:07) Ekg Tracing (02/12/18 20:07) Pantoprazole Injection (Protonix Injecti (02/12/18 20:30) Sucralfate Tablet (Carafate Tablet) (02/12/18 20:45) Clopidogrel Tablet (Plavix Tablet) (02/12/18 21:30) Medications Given in ED Current Medications Medications Dose Ordered Sig/Lisa Route Start Time Stop Time Status Last Admin Dose Admin Al Hydrox/Mg Hydrox/Simethicone 30 ml ONCE ONCE PO 02/12/18 19:00 02/12/18 19:01 DC 02/12/18 18:57 30 ML Albuterol/ Ipratropium 3 ml ONCE ONCE INH 02/12/18 19:00 02/12/18 19:01 DC 02/12/18 18:59 3 ML Aspirin 324 mg ONCE ONCE PO 02/12/18 18:45 02/12/18 18:46 DC 02/12/18 18:46 324 MG Iohexol 150 ml ONCE ONCE IV 02/12/18 19:15 02/12/18 19:29 DC 02/12/18 19:28 140 ML Lidocaine HCl 15 ml ONCE ONCE PO 02/12/18 19:00 02/12/18 19:01 DC 02/12/18 18:57 15 ML Pantoprazole 40 mg ONCE ONCE IV 02/12/18 20:30 02/12/18 20:31 DC 02/12/18 20:55 40 MG Sodium Chloride 250 ml ONCE ONCE IV 02/12/18 19:15 02/12/18 19:29 DC 02/12/18 19:29 80 ML Sodium Chloride 1,000 ml @ 0 mls/hr Q0M ONCE IV 02/12/18 19:07 02/12/18 19:08 DC 02/12/18 20:03 1,000 MLS/HR Sucralfate 1 gm ONCE ONCE PO 02/12/18 20:45 02/12/18 20:46 DC 02/12/18 20:56 1 GM Vital Signs/I&O 02/12/18 02/12/18 18:20 18:59 Temp 96.2 Pulse 61 Resp 17 B/P (MAP) 124/91 (102) Pulse Ox 99 99 O2 Delivery Room Air Room Air Blood Pressure Mean: 102 Progress Progress Note : Progress Note Seen and evaluated. IV, labs, EKG and chest x-ray ordered. ASA 324 mg by mouth given. GI cocktail and duo neb ordered. Monitor patient. D-dimer positive. CT angiogram of the chest ordered as well as 1 L normal saline bolus. Monitor patient. 2020: We have ordered repeat troponin, myoglobin and EKG for recheck. Carafate 1 g by mouth when Protonix 40 mg IV ordered for stomach staff. CT results reviewed. Patient has nodules that will need further evaluation as well as esophagitis findings. Monitor patient. 2099: Repeat EKG concerning for worsening ST depression. We're pending troponin and myoglobin at this time. I did discuss the case with Dr. Best. patient will need admission due to the ST depression findings. Pending troponin and myoglobin. Patient updated on status and concerns. 2122: Troponin positive. Dr. Best notified. Assistant [employer]enger [employer] team called. Plavix 300 mg by mouth ordered. Patient updated on concerns. To go to Assistant [employer]enger [employer]. Initial ECG Impression Date: Feb 12, 2018 Initial ECG Impression Time: 18:24 Initial ECG Rate: 58 Initial ECG Rhythm: Normal Sinus Comment Sinus rhythm with normal axis. No evidence of ST elevation IN. Similar to previous of 12/30/17 although there is question of minimal ST depression in V4 and V5. Interpreted by me. Diagnostic Imaging Diagonstic Imaging: Xray Plain Films/CT/US/NM/MRI: chest Comments VIA [facility], [facility]. [place], [place] NAME: MANJINDER HUMPHRIES [facility] REC#: [id number] PT STATUS: REG ER : 1950 PHYSICIAN: SONAM MCCABE MD ADMIT DATE: 02/12/18/ER Draft Date of Exam:02/12/18 CHEST 1 VIEW, AP/PA ONLY EXAMINATION: Portable chest. INDICATION: Chest pressure and burning. COMPARISON: Comparison made with prior study from December 30, 2017. FINDINGS: Lungs demonstrate no focal alveolar consolidation or effusion. There is no pneumothorax. Heart size and mediastinal contours appear appropriate without evidence of interval change. Pulmonary vascularity appears normal. There is no acute osseous abnormality. IMPRESSION: 1. Stable radiographic appearance of the chest. No acute cardiopulmonary process demonstrated. Dictated on workstation # [id number] Dict: 02/12/18 1849 Trans: 02/12/18 1854 [id number] Interpreted by: TAPAN BOUDREAUX MD Electronically signed by: Diagonstic Imaging: CT Plain Films/CT/US/NM/MRI: chest Comments [facility] [place] NAME: MANJINDER HUMPHRIES [facility] REC#: [id number] PT STATUS: REG ER : 1950 PHYSICIAN: SONAM MCCABE MD ADMIT DATE: 02/12/18/ER Draft Date of Exam:02/12/18 CT ANGIO CHEST W PROCEDURE: CT angiography of the chest with contrast. TECHNIQUE: Multiple contiguous axial images were obtained through the chest after uneventful bolus administration of intravenous contrast. 2D reconstructed CTA MIP acquisitions were also performed. INDICATION: Chest pain. Nausea. Bilateral arm numbness x1 day. COMPARISON: 06/03/2016. FINDINGS: There is no evidence of acute pulmonary embolus to the first subsegmental division of the pulmonary arteries. There is mild scattered aortic and coronary atherosclerosis. Otherwise, thoracic aorta is normal in course and caliber. Heart size is within normal limits. There is no large pericardial effusion. No pathologically enlarged or morphologically abnormal adenopathy is seen within the mediastinum, bebeto, nor axillae. Note is made of somewhat thickened appearance of the esophageal wall. The esophagus is decompressed. Evaluation of the lung reis demonstrates moderate diffuse air trapping consistent with background of emphysematous disease. Small 4 mm subpleural micronodule is noted within the anterior left apex. Subjectively, this may be slightly increased in size compared to 2-3 mm on exam dated 06/03/2016 (image 18, series 2 compared to image 8, series 2). However, differences may also relate to differences in slice thickness and volume averaging. Micronodular density is also noted within the inferolateral margins of the lingula of the left upper lobe and measures approximately 6 mm. This too is slightly more conspicuous, but overall stable in size when compared to prior exam. Again, differences may relate to technique. Benign-appearing subpleural calcified granuloma is also present within the posteromedial margins of the right upper lobe (image 28, series 2). No other suspicious pulmonary nodules or masses are identified. There is no focal consolidation, pleural effusion, nor pneumothorax. Osseous structures show no acute abnormalities. No lytic or blastic bony lesions are seen. Included portions of the upper abdomen are unremarkable. IMPRESSION: 1. No acute pulmonary embolus. 2. Mildly thickened appearance to the esophagus. This may be artifactual and related to decompressed nature of the esophagus. Findings, however, can also be seen with underlying esophagitis. May want to consider further evaluation with followup upper GI exam. This could be performed on a nonemergent basis. 3. Bilateral pulmonary micronodules as described above. Please see below for followup recommendations. 4. Moderate emphysematous disease. Correlation with underlying risk factors is recommended. 5. Mild calcified aortic and coronary atherosclerosis. Again, correlation with risk factors is recommended. PULMONARY NODULE FOLLOW-UP Multiple nodules: <6 mm: * Low risk patient - no routine follow up * High risk patient - optional CT at 12 months 6-8 mm in size: * Low risk patient - Ct at 3-6 months, then consider CT at 18-24 months * High risk patient - CT at 3-6 months, then at 18-24 months >8 mm: * Low risk patient - CT at 3-6 months, then consider CT at 18-24 months * High risk patient - CT at 3-6 months, then at 18-24 months (Use most suspicious nodule as guide to management. Follow up interval may vary according to size and risk) Dictated on workstation # [id number] Dict: 02/12/181942 Trans: 02/12/181955 [id number] Interpreted by: GREG LOFTON MD Electronically signed by: Departure Communication (Admissions) Time/Spoke to Admitting Phy: 21:23 Impression Primary Impression: Non-ST elevation (NSTEMI) myocardial infarction Disposition: ADMITTED INPATIENT Condition: Stable Admissions Decision to Admit Reason: Admit from ER (General) Decision to Admit/Date: Feb 12, 2018 Time/Decision to Admit Time: 21:23 Departure-Patient Inst. Referrals: SIVAKUMAR ANDRADE DO (PCP/Family) Primary Care Physician SONAM MCCABE MD Feb 12, 2018 18:58
[2018-02-12] MEDS ORDERED: RT-ALBUTEROL/IPRATROPIUM 3 ML (DUONEB) VIAL INH ONE (19:00)
[2018-02-12] MEDS ORDERED: ANTACID SUSP 30 ML UDC (MYLANTA) PO ONE (19:00)
[2018-02-12] MEDS ORDERED: LIDOCAINE 2% VISCOUS 15 ML UDC PO ONE (19:00)
[2018-02-12 19:02] LABS: MYOGLOBIN SERUM 23.4 NG/ML (10.0-92.0)
[2018-02-12] MEDS ORDERED: NS IV 1000 ML 1,000 ML IV ONE (19:07)
[2018-02-12] MEDS ORDERED: NS 250 ML (IVPB) BAG IV ONE (19:15)
[2018-02-12] MEDS ORDERED: IOHEXOL 350 MG/ML 150 ML (OMNIPAQUE 350) VIAL IV ONE (19:15)
--- NOTE | 2018-02-12 19:56 | Diagnostic Imaging Report ---
PROCEDURE: CT angiography of the chest with contrast. TECHNIQUE: Multiple contiguous axial images were obtained through the chest after uneventful bolus administration of intravenous contrast. 2D reconstructed CTA MIP acquisitions were also performed. INDICATION: Chest pain. Nausea. Bilateral arm numbness x1 day. COMPARISON: 06/03/2016. FINDINGS: There is no evidence of acute pulmonary embolus to the first subsegmental division of the pulmonary arteries. There is mild scattered aortic and coronary atherosclerosis. Otherwise, thoracic aorta is normal in course and caliber. Heart size is within normal limits. There is no large pericardial effusion. No pathologically enlarged or morphologically abnormal adenopathy is seen within the mediastinum, bebeto, nor axillae. Note is made of somewhat thickened appearance of the esophageal wall. The esophagus is decompressed. Evaluation of the lung reis demonstrates moderate diffuse air trapping consistent with background of emphysematous disease. Small 4 mm subpleural micronodule is noted within the anterior left apex. Subjectively, this may be slightly increased in size compared to 2-3 mm on exam dated 06/03/2016 (image 18, series 2 compared to image 8, series 2). However, differences may also relate to differences in slice thickness and volume averaging. Micronodular density is also noted within the inferolateral margins of the lingula of the left upper lobe and measures approximately 6 mm. This too is slightly more conspicuous, but overall stable in size when compared to prior exam. Again, differences may relate to technique. Benign-appearing subpleural calcified granuloma is also present within the posteromedial margins of the right upper lobe (image 28, series 2). No other suspicious pulmonary nodules or masses are identified. There is no focal consolidation, pleural effusion, nor pneumothorax. Osseous structures show no acute abnormalities. No lytic or blastic bony lesions are seen. Included portions of the upper abdomen are unremarkable. IMPRESSION: 1. No acute pulmonary embolus. 2. Mildly thickened appearance to the esophagus. This may be artifactual and related to decompressed nature of the esophagus. Findings, however, can also be seen with underlying esophagitis. May want to consider further evaluation with followup upper GI exam. This could be performed on a nonemergent basis. 3. Bilateral pulmonary micronodules as described above. Please see below for followup recommendations. 4. Moderate emphysematous disease. Correlation with underlying risk factors is recommended. 5. Mild calcified aortic and coronary atherosclerosis. Again, correlation with risk factors is recommended. PULMONARY NODULE FOLLOW-UP Multiple nodules: <6 mm: * Low risk patient - no routine follow up * High risk patient - optional CT at 12 months 6-8 mm in size: * Low risk patient - Ct at 3-6 months, then consider CT at 18-24 months * High risk patient - CT at 3-6 months, then at 18-24 months >8 mm: * Low risk patient - CT at 3-6 months, then consider CT at 18-24 months * High risk patient - CT at 3-6 months, then at 18-24 months (Use most suspicious nodule as guide to management. Follow up interval may vary according to size and risk) Dictated by: Dictated on workstation # [id number]
[2018-02-12] MEDS ORDERED: PANTOPRAZOLE 40 MG (PROTONIX) VIAL IV ONE (20:30)
[2018-02-12] MEDS ORDERED: SUCRALFATE 1 GM (CARAFATE) TAB PO ONE (20:45)
[2018-02-12 21:17] LABS: MYOGLOBIN SERUM 248.5 NG/ML (10.0-92.0)
[2018-02-12] MEDS ORDERED: CLOPIDOGREL 300 MG (PLAVIX) TABLET PO ONE ×3 (21:19→22:58)
--- OUTSIDE RECORDS SUMMARY | 2018-02-12 21:28 | XMS REPORT ---
Author Author LACIE BANERJEE [facility] Address [address] [place] [address] Care Team Providers Care Laborer [facility] Name Role Phone LAVONNE LACIE Unavailable PROBLEMS Type Condition ICD9-CM Code NSY13-IR Code Onset Dates Condition Status SNOMED Code Problem Generalized anxiety disorder F41.1 Active 78182965 Problem Hypokalemia E87.6 Active 152182839 Problem Right low back pain, with sciatica presence unspecified M54.5 Active 922959136 Problem Pain in right knee M25.561 Active 20140989 Problem Gastroesophageal reflux disease without esophagitis K21.9 Active 071398614 Problem UTI symptoms R39.9 Active 56448695 Problem Essential hypertension I10 Active 69547436 Problem Right foot pain M79.671 Active 33839254 Problem Neuropathy G62.9 Active 771264397 Problem Other emphysema J43.8 Active 20419106 Problem Anxiety F41.9 Active 00232582 Problem Opioid use disorder, moderate, dependence F11.20 Active 02909122 Problem Other chronic pain G89.29 Active 94815738 Problem Bone pain M89.8X9 Active 76485974 Problem Chronic pain G89.29 Active 19937143 Problem Back pain M54.9 Active 285343240 Problem Kidney stones N20.0 Active 59257648 Problem Panic attacks F41.0 Active 665000372 Problem Generalized abdominal pain R10.84 Active 857740394 Problem Renal calculus, right N20.0 Active 30497977 Problem Tobacco abuse Z72.0 Active 54989174 Problem Right upper quadrant abdominal pain R10.11 Active 473420001 Problem Depression, unspecified depression type F32.9 Active 04427126 Problem Weight decrease R63.4 Active 943010369 Problem Pulmonary emphysema, unspecified emphysema type J43.9 Active 01050733 Problem Post-traumatic stress disorder, chronic F43.12 Active 33193944 Problem Weight loss R63.4 Active 689877467 Problem Insomnia, unspecified type G47.00 Active 782501763 ALLERGIES Substance Reaction Event Type Date Status Sulfur rash Drug Allergy Nov, Active Remeron itching Drug Allergy Nov, Active Morphine Sulfate nausea Drug Allergy Nov, Active Demerol Unknown Drug Allergy Nov, Active Fentanyl 25 Mcg/hr Patch 72 Hr Unknown Non Drug Allergy Nov, Active ENCOUNTERS Encounter Location Date Diagnosis [place] [id number] [place] [address] 32419- 1054 Dec, [facility] [id number] [place] [address] 76216- 9485 Dec, [place] [address] 51362- 9072 Dec, Medicare welcome exam Z00.00 [place] [address] 66745- 8445 Nov, Opioid use disorder, moderate, dependence F11.20 [place] [id number] [place] [address] 85358- 6475 16 Nov, 2017 Pelvic pain R10.2 ; Acute pyelonephritis N10 and Essential hypertension I10 [place] [id number] [place] [address] 69020- 4257 28 Oct, 2017 Medicare welcome exam Z00.00 [place] [id number] [place] [address] 36400- 5439 Oct, Gross hematuria R31.0 ; Urinary tract infection without hematuria, site unspecified N39.0 and Weakness R53.1 [facility] [id number] [place] [address] 23423- 3248 13 Oct, 2017 [facility] [id number] [place] [address] 11805- 9709 Oct, [facility] [id number] [place] [address] 55750- 8557 Oct, Medicare welcome exam Z00.00 [place] [address] [place] [address]- 0561 September, Back pain M54.9 and Right anterior knee pain M25.561 [facility] [id number] [place] [address] 58991- 3289 September, [facility] [id number] [place] [address] 67235- 2222 September, [facility] [address] 18237- 3587 September, Essential hypertension I10 [facility] [address] 25750- 6958 September, [facility] [address] 71363- 4017 September, RLQ abdominal pain R10.31 ; Low back pain M54.5 and Other chronic pain G89.29 [facility] [id number] [place] [address] 59223- 2781 Aug, Medicare welcome exam Z00.00 [facility] [id number] [place] [address] 23892- 4589 Aug, [facility] [id number] [place] [address] 00273- 8520 Aug, Acute pyelonephritis N10 and Medicare welcome exam Z00.00 [facility] [id number] [place] [address] 33260 -1365 Aug, Dysuria R30.0 and Acute pyelonephritis N10 [facility] [id number] [place] [address] 58335- 7522 Aug, [facility] [id number] [place] [address] 00446- 9513 Aug, [facility] [id number] [place] [address] 91296- 6740 Aug, [facility] [id number] [place] [address] 54164- 9909 Aug, [facility] [id number] [place] [address] 59607- 0504 Jul, [facility] [id number] [place] [address] 13806- 1780 Jul, Renal calculus, right N20.0 and Medicare welcome exam Z00.00 [facility] [id number] [place] [address] 38377 -0217 Jul, Dysuria R30.0 and Renal calculus, right N20.0 [facility] [id number] [place] [address] 85537- 3690 Jul, Medicare welcome exam Z00.00 [facility] [id number] [place] [address] 30501- 9009 13 Jun, 2017 Gastroesophageal reflux disease without esophagitis K21.9 and Generalized abdominal pain R10.84 [facility] [id number] [place] [address] 75424- 3757 Jun, Medicare welcome exam Z00.00 [facility] [id number] [place] [address] 04239- 7341 Jun, [facility] [id number] [place] [address] 46073- 2132 Jun, Medicare welcome exam Z00.00 and Encounter for screening mammogram for malignant neoplasm of breast Z12.31 [facility] [address] [address]- 1458 Jun, Chronic pain G89.29 [place] [id number] [place] [address] 05557- 8482 May, [facility] [id number] [place] [address] 30979- 1982 May, Pelvic pain R10.2 [place] [id number] [place] [address] 83225- 8662 May, Pelvic pain R10.2 [facility] [id number] [place] [address] 71979 -0585 May, Renal calculus, right N20.0 [facility] [id number] [place] [address] 45276- 7129 May, Hematuria, unspecified type R31.9 and Nephrolithiasis N20.0 [facility] [id number] [place] [address] 01714 -8731 May, Dysuria R30.0 and Nephrolithiasis N20.0 [place] [address] 02217- 0070 May, [facility] [place] [id number] [place] [address] 65941 -1467 May, Abdominal pain R10.9 and Kidney stone N20.0 [place] [id number] [place] [address] 93327- 2990 May, [place] [id number] [place] [address] 37523- 9793 May, Chronic pain G89.29 and Panic attacks F41.0 [place] [id number] [place] [address] 81477- 9465 May, Urinary tract infection without hematuria, site unspecified N39.0 [place] [id number] [place] [address] 80117- 2650 Apr, Right lower quadrant abdominal pain R10.31 and Abnormal serum lipase level R74.8 [place] [id number] [place] [address] 71840- 7136 Apr, Recurrent urinary tract infection N39.0 [place] [id number] [place] [address] 68139- 9683 Apr, UTI symptoms R39.9 ; Recurrent urinary tract infection N39.0 and Pelvic pain R10.2 [place] [id number] [place] [address] 68624- 6242 08 Apr, 2017 Chronic pain G89.29 and Panic attacks F41.0 [place] [id number] [place] [address] 27998- 6823 Apr, Dysuria R30.0 [place] [id number] [place] [address] 00699- 2906 Apr, [place] [id number] [place] [address] 53950- 4046 Apr, Dysuria R30.0 and Urinary tract infection without hematuria , site unspecified N39.0 [facility] [id number] [place] [address] 83815- 7524 Mar, UTI symptoms R39.9 [place] [id number] [place] [address] 71504- 0145 Mar, [place] [id number] [place] [address] 38746- 8013 Mar, Panic attacks F41.0 and Chronic pain G89.29 [place] [id number] [place] [address] 46428- 6718 Mar, [place] [id number] [place] [address] 33865- 1582 Mar, Dysuria R30.0 [place] [id number] [place] [address] 20803- 9283 Mar, Dysuria R30.0 [place] [id number] [place] [address] 20845- 2606 Feb, Chronic pain G89.29 ; Shortness of breath R06.02 ; Weight loss R63.4 ; Encounter for immunization Z23 ; Bone pain M89.8X9 ; Right anterior knee pain M25.561 and Cough R05 [place] [id number] [place] [address] 79433- 6671 Feb, Shortness of breath R06.02 [place] [id number] [place] [address] 91972- 7524 Feb, [place] [address] 48009- 6541 Feb, Panic attacks F41.0 and Chronic pain G89.29 [place] [address] 22414- 4400 Feb, [place] [address] 55741- 6238 Feb, Panic attacks F41.0 ; Shortness of breath R06.02 and Encounter for immunization Z23 [place] [address] 43378- 9515 Jan, [place] [address] 23414- 8059 Jan, Anxiety F41.9 and Chronic pain G89.29 [place] [address] 09407- 1588 Dec, Anxiety F41.9 and Chronic pain G89.29 [place] [address] 38819- 8544 Nov, Chronic pain G89.29 [place] [address] 66663- 4907 Nov, Anxiety F41.9 [place] [address] 91841- 2187 Nov, Chronic pain G89.29 ; Essential hypertension I10 and Other emphysema J43.8 [place] [address] 38738- 1563 Oct, Anxiety F41.9 [place] [address] 34475- 4707 Oct, [place] [address] [place] [address]- 9161 Oct, Chronic pain G89.29 [facility] [id number] [place] [address] 17185- 9635 September, Recurrent UTI N39.0 ; Neuropathy G62.9 and Anxiety F41.9 [facility] [id number] [place] [address] 19694- 8787 September, [facility] [address] 00663- 4229 September, Chronic pain G89.29 [facility] [id number] [place] [address] 72649- 3366 September, [facility] [id number] [place] [address] 87122- 9731 Aug, Post-traumatic stress disorder, chronic F43.12 ; Chronic urinary tract infection N39.0 ; Gastroesophageal reflux disease without esophagitis K21.9 ; Chronic pain G89.29 ; Essential hypertension I10 and Tobacco abuse Z72.0 [facility] [id number] [place] [address] 51612 -1406 Aug, [facility] [id number] [place] [address] 55125- 2439 Aug, Chronic pain G89.29 [facility] [id number] [place] [address] 83598- 5596 Aug, Insomnia, unspecified type G47.00 [facility] [id number] [place] [address] 70280- 6514 Aug, [facility] [id number] [place] [address] 69874- 1613 Jul, Chronic pain G89.29 [facility] [id number] [place] [address] 84101- 0606 Jul, [facility] [id number] [place] [address] 23469- 4882 Jul, [facility] [address] [address]- 3577 Jul, [facility] [id number] [place] [address] 83787- 6211 Jul, Recurrent UTI (urinary tract infection) N39.0 [facility] [address] [address]- 4748 Jul, [facility] [id number] [place] [address] 94200- 2879 Jun, Chronic pain G89.29 [place] [id number] [place] [address] 30229- 3359 Jun, [facility] [id number] [place] [address] 61743- 6175 Jun, [facility] [id number] [place] [address] 06291- 4400 May, Chronic pain G89.29 [facility] [id number] [place] [address] 24367- 0490 May, Weight loss R63.4 and Shortness of breath R06.02 [facility] [address] [address]- 2112 May, Chronic pain G89.29 ; Weight loss R63.4 and Tobacco abuse Z72.0 [place] [address] [address]- 3666 May, [facility] [address] [address]- 9195 May, Hypoxia R09.02 [place] [id number] [place] [address] 25067- 3915 May, [facility] [address] [address]- 2591 May, Pulmonary emphysema, unspecified emphysema type J43.9 [facility] [id number] [place] [address] 15679 -7521 May, [facility] [id number] [place] [address] 86005- 7514 May, [facility] [id number] [place] [address] 60699- 0721 May, [facility] [address] 11552- 2716 May, Chronic pain G89.29 ; Encounter for immunization Z23 ; Right anterior knee pain M25.561 and Cough R05 [facility] [address] 76054- 5046 Apr, Chronic pain G89.29 [facility] [id number] [place] [address] 32422- 5536 Apr, [facility] [address] 96248- 4974 Apr, Generalized anxiety disorder F41.1 and Depression, unspecified depression type F32.9 [facility] [id number] [place] [address] 59655- 2610 Apr, Chronic pain G89.29 ; Hypokalemia E87.6 and Insomnia, unspecified type G47.00 [facility] [id number] [place] [address] 93956- 7768 Apr, [facility] [id number] [place] [address] 38021- 4870 Apr, Chronic pain G89.29 [facility] [id number] [place] [address] 75794- 2416 Apr, [facility] [id number] [place] [address] 00368- 3857 Mar, [facility] [id number] [place] [address] 87807- 6249 Mar, Insomnia, unspecified type G47.00 [facility] [address] [facility] [id number] [address]- 3610 Mar, Chronic pain G89.29 [facility] [id number] [place] [address] 57275- 5636 Mar, [facility] [id number] [place] [address], [place] [address]- 6986 Feb, [facility] [address] [facility] [id number] [place] [address] 38730- 0034 Feb, [facility] [id number] [place] [address], [place] [address]- 2246 Feb, [facility] [id number] [place] [address] 74535- 7112 Feb, [facility] [id number] [place] [address] 65473- 3560 Feb, [facility] [id number] [place] [address] 10185- 1344 29 Jan, 2016 [facility] [id number] [place] [address] 55060- 7372 26 Jan, 2016 [facility] [id number] [place] [address] 44700- 1721 20 Jan, 2016 [facility] [address] [address] 2545 13 Jan, 2016 [facility] [id number] [address] 2549 12 Jan, 2016 [facility] [id number] [address] 2541 07 Jan, 2016 Chronic pain G89.29 [facility] [id number] [address] 2540 Jan, Chronic pain G89.29 and Fibromyalgia M79.7 [facility] [address] [address]- 2693 Dec, Depression, unspecified depression type F32.9 and Generalized anxiety disorder 300.02 [facility] [id number] [place] [address] 80715- 2681 Dec, Dysthymia F34.1 ; Insomnia, unspecified type G47.00 and Chronic pain G89.29 [facility] [id number] [place] [address] 12908- 3167 Dec, Chronic pain G89.29 [facility] [id number] [place] [address] 24590- 6575 Dec, Insomnia, unspecified type G47.00 [facility] [id number] [place] [address] 00534- 3960 Dec, Fibromyalgia M79.7 and Chronic pain G89.29 [facility] [id number] [place] [address] 75767- 4079 Dec, [facility] [id number] [place] [address] 16619- 7486 Dec, [facility] [id number] [place] [address] 33274- 0184 Dec, [facility] [id number] [place] [address] 53072- 3284 Dec, [facility] [id number] [place] [address] 40796- 2420 Dec, Chronic pain G89.29 [facility] [id number] [place] [address] 98947- 2186 Dec, [facility] [id number] [place] [address] 16661- 0057 Dec, [facility] [id number] [place] [address] 01835- 6928 Dec, [facility] [id number] [place] [address] 21410- 8580 Dec, Chronic pain G89.29 and Dysthymia F34.1 [facility] [id number] [place] [address] 18957- 9604 Nov, [facility] [address] 15437- 2356 Nov, Hypokalemia E87.6 and Chronic pain G89.29 [facility] [address] 15654- 4711 Nov, Back pain M54.9 and Pain in right knee M25.561 [facility] [address] 58884- 3925 Nov, [place] [address] 54723- 7589 Nov, Chronic pain G89.29 [place] [address] 20004- 4281 Nov, Chronic pain G89.29 ; Weight loss R63.4 ; Bone pain M89.8X9 and Insomnia, unspecified type G47.00 [place] [address] 39503- 5665 Nov, Chronic pain G89.29 [facility] [id number] [place] [address] 58788- 7379 Nov, Chronic pain G89.29 [facility] [id number] [place] [address] 57218- 1065 Oct, Chronic pain G89.29 [facility] [id number] [place] [address] 66833- 9169 Oct, UTI symptoms R39.9 [facility] [address] 62168- 3919 Oct, Chronic pain G89.29 [facility] [id number] [place] [address] 03161- 9906 Oct, Chronic pain G89.29 [place] [address] [address]- 1275 Oct, Chronic pain G89.29 [facility] [id number] [place] [address] 21195- 7016 Oct, Right upper quadrant abdominal pain R10.11 [facility] [id number] [place] [address] 78127- 6176 Oct, Chronic pain G89.29 [facility] [id number] [place] [address] 48365- 9611 Oct, [facility] [id number] [place] [address] 49530- 9280 September, Chronic pain G89.29 [facility] [id number] [place] [address] 51205- 6176 September, Dysuria R30.0 and Urinary tract infection without hematuria , site unspecified N39.0 [facility] [address] [address]- 1612 September, [facility] [id number] [place] [address] 94491- 9505 September, Dysuria R30.0 [facility] [id number] [place] [address] 51523- 2808 September, Chronic pain G89.29 [facility] [id number] [place] [address] 45502- 4252 September, Chronic pain G89.29 and Essential hypertension I10 [facility] [id number] [address] September, [facility] [id number] [place] [address] 82230- 3994 September, [facility] [id number] [address] September, [facility] [id number] [place] [address] 92423- 7886 Aug, UTI symptoms R39.9 [facility] [id number] [place] [address] 49846- 2315 Aug, Dysuria R30.0 [facility] [id number] [place] [address] 45329- 7515 Aug, [facility] [id number] [place] [address] 18422- 7677 Aug, [facility] [id number] [place] [address] 61842- 9600 Aug, [facility] [id number] [place] [address] 28699- 4234 Aug, Chronic pain G89.29 [facility] [id number] [place] [address] 24816- 8333 Aug, Dysthymia F34.1 [facility] [id number] [place] [address] 82505- 5883 Aug, Conjunctivitis, unspecified conjunctivitis type, unspecified laterality H10.9 [facility] [id number] [place] [address] 54467- 2049 Jul, Chronic pain G89.29 ; Back pain M54.9 ; Tobacco abuse Z72.0 and Weight decrease R63.4 [facility] [id number] [place] [address] 66235- 8556 Jul, [facility] [id number] [place] [address] 45542- 6547 Jul, [facility] [id number] [place] [address] 74891- 9062 Jul, Chronic pain G89.29 [facility] [id number] [place] [address] 39307- 9918 Jul, [facility] [id number] [place] [address] 84165- 0602 Jul, [facility] [address] [address] 18 Jul, 2015 [facility] [address] [address] 1728 17 Jul, 2015 [facility] [address] [address] 9059 17 Jul, 2015 Chronic pain G89.29 [facility] [id number] [place] [address] 6[address]00- 6978 16 Jul, 2015 Chronic pain G89.29 [facility] [id number] [place] [address] 11702- 3742 15 Jul, 2015 [facility] [address] [address] 3766 Jul, [facility] [id number] [place] [address] 69039- 5210 Jul, [facility] [address] [address] 8490 Jul, [facility] [address] [address] 9163 Jun, [facility] [address] [address]- 9281 Jun, Depression, unspecified depression type F32.9 [facility] [address] [address] 6[address] Jun, Pain in right knee M25.561 [facility] [address] [address] 1649 24 Jun, 2015 Chronic pain G89.29 ; Back pain M54.9 ; Bone pain M89.8X9 and Weight loss R63.4 [facility] [address] [address]- 9526 Jun, [facility] [id number] [place] [address] 33384- 8619 May, [facility] [id number] [place] [address] 80653- 1886 May, UTI symptoms R39.9 ; Pain in right knee M25.561 ; Right low back pain, with sciatica presence unspecified M54.5 ; Right foot pain M79.671 ; Hypokalemia E87.6 and Screening, lipid Z13.220 [facility] [address] [address]- [address] May, [facility] [address] [address]- 2596 May, [facility] [address] [address]- 4[address] Mar, [place] [address] [address]- 8960 Mar, [facility] [address] [address]- 4166 Mar, Hypokalemia E87.6 [place] [address] [address]- 9437 Mar, Pain in right leg M79.604 ; Encounter for immunization Z23 ; Pain in right knee M25.561 and Hypokalemia E87.6 [facility] [id number] [place] [address] 54325- 7026 Jan, [facility] [id number] [place] [address] 53858- 2532 Jan, [facility] [address] [address]- 8281 Jan, Abdominal pain, generalized 789.07 [facility] [id number] [place] [address] 14178- 5372 11 Jan, 2015 Abdominal pain, generalized 789.07 [facility] [address] 08[address]- 0718 Dec, [facility] [address] [address]- 6325 Dec, [facility] [address] [address]- 3950 Dec, [facility] [id number] [place] [address] 88486- 0727 Nov, Hallux valgus 735.0 and Hammertoe 735.4 [facility] [id number] [place] [address] 33473- 7624 Nov, [facility] [id number] [place] [address] 26682- 5130 Nov, Hallux valgus 735.0 and Hammer toe 735.4 [facility] [id number] [place] [address] 09576- 8775 Oct, [facility] [address] [address]- 7393 Oct, [facility] [id number] [place] [address] 10296- 9286 Oct, Pre-op evaluation V72.84 [facility] [address] [address]- 2612 Oct, [facility] [id number] [place] [address] 27971- 7811 Oct, [facility] [address] [address]- 7913 September, [facility] [id number] [place] [address] 85656- 5504 September, [facility] [address] [address]- 6331 September, Hallux valgus (acquired) 735.0 and Other hammer toe ( acquired) 735.4 [facility] [place] [facility] [address] [id number] [place] [address]- 6734 14 Aug, 2014 [facility] [place] [facility] [address] [id number] [place] [address]- 6310 13 Aug, 2014 [facility] [place] [facility] [address] [id number] [place] [address]- 8547 09 Jul, 2014 [facility] [place] [facility] [address] [id number] [place] [address]- 0230 Jul, [facility] [place] [facility] [address] [id number] [place] [address]- 8944 Jul, [facility] [place] [facility] [address] [id number] [place] [address]- 2800 Jul, [facility] [place] [facility] [address] [facility] [id number] [place] [address]- 9913 Jul, [facility] [place] [facility] [address] [id number] [place] [address]- 5820 Jul, [facility] [place] [facility] [address] [id number] [place] [address]- 9003 Jul, [facility] [place] [facility] [address] [id number] [place] [address]- 7138 Jul, [facility] [place] [facility] [address] [facility] [id number] [place] [address]- 8943 Jun, [facility] [place] [facility] [address] [id number] [place] [address]- 0460 Jun, [facility] [place] [facility] [address] [id number] [place] [address]- 9479 Jun, [facility] [place] [facility] [address] [id number] [place] [address]- 3098 Jun, [facility] [place] [facility] [address] [id number] [place] [address]- 6086 Jun, [facility] [place] [facility] [address] [id number] [place] [address]- 2392 Jun, [facility] [place] [facility] [address] [id number] [place] [address]- 3934 Jun, [facility] [place] [facility] [address] [id number] [place] [address]- 8232 Jun, [facility] [place] [facility] [address] [id number] [place] [address]- 3257 Jun, [facility] [place] [facility] [address] [id number] [place] [address]- 7161 Jun, [facility] [place] [facility] [address] [id number] [place] [address]- 6844 May, [facility] [place] [facility] [address] [id number] [place] [address]- 8177 May, [facility] [place] [facility] [address] [id number] [place] [address]- 4880 May, [facility] [place] [facility] [address] [id number] [place] [address]- 0901 May, [facility] [place] [facility] [address] [id number] [place] [address]- 0819 May, [facility] [place] [facility] [address] [id number] [place] [address]- 4632 May, [facility] [place] [facility] [address] [id number] [place] [address]- 7376 May, [facility] [place] [facility] [address] [id number] [address]- 6962 May, [facility] [place] [facility] [address] [id number] [place] [address]- 1339 May, [facility] [place] [facility] [address] [id number] [place] [address]- 1344 May, [facility] [place] [facility] [address] [id number] [place] [address]- 9093 May, [facility] [place] [facility] [address] [id number] [place] [address]- 4217 May, [facility] [place] [facility] [address] [id number] [place] [address]- 7869 May, [facility] [place] [facility] [address] [id number] [place] [address]- 5826 May, [facility] [place] [facility] [address] [id number] [place] [address]- 4944 May, [facility] [place] [facility] [address] [id number] [place] [address]- 5993 May, [facility] [place] [facility] [address] [id number] [place] [address]- 6190 May, [facility] [place] [facility] [address] [id number] [place] [address]- 3113 May, [facility] [place] [facility] [address] [id number] [place] [address]- 9954 Apr, [facility] [place] [facility] [address] [id number] [place] [address]- 3118 Apr, [facility] [place] [facility] [address] [id number] [place] [address]- 6788 Apr, [facility] [place] [facility] [address] [id number] [place] [address]- 8310 Apr, [facility] [place] [facility] [address] [id number] [place] [address]- 4400 Apr, [facility] [place] [facility] [address] [id number] [place] [address]- 9031 Apr, [facility] [place] [facility] [address] [id number] [place] [address]- 4823 Apr, [facility] [place] [facility] [address] [id number] [place] [address]- 1363 Apr, [facility] [place] [facility] [address] [id number] [place] [address]- 7579 Apr, [facility] [place] [facility] [address] [id number] [place] [address]- 5414 Mar, [facility] [place] [facility] [address] [id number] [place] [address]- 1747 Mar, [facility] [place] [facility] [address] [id number] [place] [address]- 1966 Mar, [facility] [place] [facility] [address] [id number] [place] [address]- 9465 Mar, [facility] [place] [facility] [address] [id number] [place] [address]- 9525 Mar, [facility] [place] [facility] [address] [id number] [place] 9923 Feb, [facility] [place] [facility] [address] [id number] [place] [address]- 5251 Feb, [facility] [place] [facility] [address] [id number] [address]- 5628 Feb, [facility] [place] [facility] [address] [id number] [address]- 5955 Feb, [facility] [place] [facility] [address] [id number] [address]- 6093 Feb, [facility] [place] [facility] [address] [id number] [address]- 0538 Feb, [facility] [place] [facility] [address] [id number] [address]- 0284 Feb, [facility] [place] [facility] [address] [id number] [address]- 9617 Feb, [facility] [place] [facility] [address] [id number] [address]- 7045 Feb, [facility] [place] [facility] [address] [id number] [address]- 6676 Feb, [facility] [place] [facility] [address] [id number] [place] [address]- 2586 08 Feb, 2013 [facility] [place] [facility] [address] [id number] [place] [address]- 9889 08 Feb, 2014 [facility] [place] [facility] [address] [id number] [place] [address]- 0474 Feb, [facility] [place] [facility] [address] [id number] [place] [address]- 9000 Feb, [facility] [place] [facility] [address] [id number] [place] [address]- 3822 Feb, [facility] [place] [facility] [address] [id number] [place] [address]- 7602 Feb, [facility] [place] [facility] [address] [id number] [place] [address]- 3366 Jan, 2013 [facility] [place] [facility] [address] [id number] [place] [address]- 1012 Jan, 2013 [facility] [place] [facility] [address] [id number] [place] [address]- 4537 20 Jan, 2013 [facility] [place] [facility] [address] [id number] [place] [address]- 4237 19 Jan, 2013 [facility] [place] [facility] [address] [id number] [place] [address]- 7755 11 Jan, 2013 [facility] [place] [facility] [address] [id number] [place] [address]- 2544 11 Jan, 2013 [facility] [place] [facility] [address] [id number] [place] [address]- 0052 Jan, 2013 [facility] [place] [facility] [address] [id number] [place] [address]- 6405 Jan, [facility] [place] [facility] [address] [id number] [place] [address]- 8768 Dec, [facility] [place] [facility] [address] [id number] [place] [address]- 8691 Dec, [facility] [place] [facility] [address] [id number] [place] [address]- 3061 Nov, [facility] [place] [facility] [address] [id number] [place] [address]- 3742 Nov, [facility] [place] [facility] [address] [id number] [place] [address]- 0008 Nov, [facility] [place] [facility] [address] [id number] [place] [address]- 1522 Nov, [facility] [place] [facility] [address] [id number] [place] [address]- 4582 Nov, [facility] [place] [facility] [address] [id number] [place] [address]- 7835 Nov, [facility] [place] [facility] [address] [id number] [place] [address]- 0992 Nov, [facility] [place] [facility] [address] [id number] [place] [address]- 1018 Nov, [facility] [place] [facility] [address] [id number] [place] [address]- 4265 Nov, [facility] [place] [facility] [address] [id number] [place] [address]- 1353 Oct, [facility] [place] [facility] [address] [id number] [place] [address]- 6471 Oct, [facility] [place] [facility] [address] [id number] [place] [address]- 1323 Oct, [facility] [place] [facility] [address] [id number] [place] [address]- 5016 Oct, [facility] [place] [facility] [address] [id number] [place] [address]- 3820 Oct, [facility] [place] [facility] [address] [id number] [place] [address]- 8204 Oct, [facility] [place] [facility] [address] [id number] [place] [address]- 8426 September, [facility] [address] [id number] [place] [address]- 6004 September, [facility] [place] [facility] [address] [id number] [place] 0543 September, [facility] [place] [facility] [address] [id number] [place] [address]- 1259 September, [facility] [place] [facility] [address] [id number] [place] [address]- 6503 September, [facility] [place] [facility] [address] [id number] [place] [address]- 0629 September, [facility] [place] [facility] [address] [id number] [place] [address]- 0037 September, [facility] [place] [facility] [address] [id number] [place] [address]- 5775 September, [facility] [place] [facility] [address] [id number] [place] [address]- 7195 September, [facility] [place] [facility] [address] [id number] [place] [address]- 0373 September, [facility] [place] [facility] [address] [id number] [place] [address]- 0864 September, [facility] [place] [facility] [address] [id number] [place] [address]- 0939 September, [facility] [place] [facility] [address] [id number] [place] [address]- 8829 September, [facility] [place] [facility] [address] [id number] [place] 5096 September, [facility] [place] [facility] [address] [id number] [place] 1552 September, [facility] [place] [facility] [address] [id number] [place] 6092 September, [facility] [place] [facility] [address] [id number] [place] [address]- 5926 September, [facility] [address] [id number] [place] [address]- 4735 September, [facility] [place] [facility] [address] [id number] [place] [address]- 1874 September, [facility] [address] [id number] [place] [address]- 5101 September, [facility] [place] [facility] [address] [id number] [place] [address]- 6730 Aug, [facility] [place] [facility] [address] [id number] [place] [address]- 0231 Aug, [facility] [place] [facility] [address] [id number] [place] [address]- 2532 Aug, [facility] [place] [facility] [address] [id number] [place] [address]- 3545 Aug, [facility] [address] [id number] [place] [address]- 4337 Aug, [facility] [place] [facility] [address] [id number] [place] [address]- 2980 Aug, [facility] [address] [id number] [place] [address]- 0193 16 Aug, 2013 [facility] [place] [facility] [address] [id number] [place] [address]- 1689 16 Aug, 2013 [facility] [place] [facility] [address] [id number] [place] [address]- 6090 15 Aug, 2013 [facility] [place] [facility] [address] [id number] [place] [address]- 6835 15 Aug, 2013 [facility] [place] [facility] [address] [id number] [place] [address]- 2110 14 Aug, 2013 [facility] [place] [facility] [address] [id number] [place] [address]- 9090 Aug, [facility] [place] [facility] [address] [id number] [place] [address]- 3241 05 Aug, 2013 [facility] [place] [facility] [address] [id number] [place] [address]- 3179 Aug, [facility] [place] [facility] [address] [id number] [place] [address]- 4458 Aug, [facility] [place] [facility] [address] [id number] [place] [address]- 4545 Jul, [facility] [place] [facility] [address] [id number] [place] [address]- 4494 Jul, [facility] [place] [facility] [address] [id number] [place] [address]- 8702 Jul, [facility] [place] [facility] [address] [id number] [place] [address]- 8847 Jul, [facility] [place] [facility] [address] [id number] [place] [address]- 7609 Jul, [facility] [place] [facility] [address] [id number] [place] [address]- 4049 Jul, [facility] [place] [facility] [address] [id number] [place] [address]- 7334 Jul, [facility] [place] [facility] [address] [id number] [place] [address]- 0559 Jul, [facility] [place] [facility] [address] [id number] [place] [address]- 5573 Jul, [facility] [place] [facility] [address] [id number] [place] [address]- 7005 Jul, [facility] [place] [facility] [address] [id number] [place] [address]- 7553 Jul, [facility] [place] [facility] [address] [id number] [place] [address]- 3881 Jul, [facility] [place] [facility] [address] [id number] [place] [address]- 2552 Jul, [facility] [place] [facility] [address] [id number] [place] [address]- 9201 Jul, [facility] [place] [facility] [address] [id number] [place] [address]- 4480 Jul, [facility] [place] [facility] [address] [id number] [place] [address]- 1751 Jun, [facility] [place] [facility] [address] [id number] [place] [address]- 6245 Jun, [facility] [place] [facility] [address] [id number] [place] [address]- 9837 Jun, [facility] [place] [facility] [address] [id number] [place] [address]- 5570 Jun, [facility] [place] [facility] [address] [id number] [place] [address]- 0849 Jun, [facility] [place] [facility] [address] [id number] [place] [address]- 4896 Jun, [facility] [place] [facility] [address] [id number] [place] [address]- 8639 May, [facility] [place] [facility] [address] [id number] [place] [address]- 6177 May, [facility] [place] [facility] [address] [id number] [place] [address]- 3301 May, [facility] [place] [facility] [address] [id number] [place] [address]- 3803 May, [facility] [place] [facility] [address] [id number] [place] [address]- 9102 May, [facility] [place] [facility] [address] [id number] [place] [address]- 0305 May, [facility] [place] [facility] [address] [id number] [place] [address]- 2631 May, [facility] [address] [id number] [place] [address]- 4590 May, [facility] [place] [facility] [address] [id number] [place] [address]- 2023 May, [facility] [place] [facility] [address] [id number] [place] [address]- 2484 May, [facility] [place] [facility] [address] [id number] [place] [address]- 3507 May, [facility] [place] [facility] [address] [id number] [place] [address] May, [facility] [place] [facility] [address] [id number] [place] [address] May, [facility] [place] [facility] [address] [id number] [place] [address] May, [facility] [place] [facility] [address] [id number] [place] [address] May, [facility] [place] [facility] [address] [id number] [place] [address] Apr, [facility] [place] [facility] [address] [id number] [place] [address] Apr, [facility] [place] [facility] [address] [id number] [place] [address] Apr, [facility] [place] [facility] [address] [id number] [place] [address] Apr, [facility] [place] [facility] [address] [id number] [place] [address] Apr, [facility] [place] [facility] [address] [id number] [place] [address] Apr, [facility] [place] [facility] [address] [id number] [place] [address] Apr, [facility] [place] [facility] [address] [id number] [place] [address] Apr, [facility] [address] [id number] [place] [address] Apr, [facility] [place] [facility] [address] [id number] [place] [address] Apr, [facility] [place] [facility] [address] [facility] [id number] [place] [address] Mar, [facility] [place] [facility] [address] [id number] [place] [address] Mar, [facility] [place] [facility] [address] [id number] [place] [address]- [address] Mar, [facility] [place] [facility] [address] [id number] [place] [address] Mar, [facility] [address] [facility] [id number] [place] [address] Mar, [facility] [place] [facility] [address] [id number] [place] [address]- [address] Mar, [facility] [place] [facility] [address] [id number] [place] [address] Mar, [facility] [place] [facility] [address] [facility] [id number] [place] [address]- [address] Mar, [facility] [place] [facility] [address] [id number] [place] [address] Mar, [facility] [place] [facility] [address] [id number] [place] [address] Mar, [facility] [place] [facility] [address] [id number] [place] [address] Mar, [facility] [place] [facility] [address] [facility] [id number] [place] [address] Mar, [facility] [place] [facility] [address] [facility] [id number] [place] [address] Mar, [facility] [place] [facility] [address] [id number] [place] [address]- [address] 19 Mar, 2013 [facility] [place] [facility] [address] [id number] [place] [address]- [address] 18 Mar, 2013 [facility] [place] [facility] [address] [id number] [place] [address]- [address] 18 Mar, 2013 [facility] [place] [facility] [address] [id number] [place] [address]- [address] 14 Mar, 2013 [facility] [place] [facility] [address] [id number] [place] [address] 14 Mar, 2013 [facility] [place] [facility] [address] [id number] [place] [address] Mar, [facility] [place] [facility] [address] [id number] [place] [address] Mar, [facility] [place] [facility] [address] [id number] [place] [address] Mar, [facility] [place] [facility] [address] [id number] [place] [address] Mar, [facility] [place] [facility] [address] [id number] [place] [address] Mar, [facility] [place] [facility] [address] [facility] [id number] [place] [address] Feb, [facility] [place] [facility] [address] [id number] [place] [address] 18 Feb, 2013 [facility] [place] [facility] [address] [id number] [place] [address] 16 Feb, 2013 [facility] [place] [facility] [address] [id number] [place] [address] 16 Feb, 2013 [facility] [place] [facility] [address] [id number] [place] [address] 15 Feb, 2013 [facility] [place] [facility] [address] [id number] [place] [address] Feb, [facility] [place] [facility] [address] [id number] [place] [address]- [address] Feb, [facility] [place] [facility] [address] [id number] [place] [address]- [address] Feb, [facility] [place] [facility] [address] [id number] [place] [address]- [address] Feb, [facility] [place] [facility] [address] [id number] [place] [address]- [address] Feb, [facility] [place] [facility] [address] [id number] [place] [address]- [address] 30 Jan, 2013 [facility] [place] [facility] [address] [id number] [place] [address]- [address] 26 Jan, 2013 [facility] [place] [facility] [address] [id number] [place] [address]- [address] 24 Jan, 2013 [facility] [place] [facility] [address] [id number] [place] [address]- [address] 23 Jan, 2013 [facility] [place] [facility] [address] [id number] [place] [address]- [address] 17 Jan, 2013 [facility] [place] [facility] [address] [id number] [place] [address] 28 Dec, 2012 [facility] [place] [facility] [address] [id number] [place] [address]- [address] Dec, [facility] [place] [facility] [address] [id number] [place] [address] 16 Dec, 2012 [facility] [place] [facility] [address] [id number] [place] [address]- [address] 15 Dec, 2012 [facility] [place] [facility] [address] [id number] [place] [address]- [address] 14 Dec, 2012 [facility] [place] [facility] [address] [id number] [place] [address]- [address] Dec, [facility] [place] [facility] [address] [id number] [place] [address] Dec, [facility] [facility] [address] [id number] [place] [address] Nov, [facility] [address] [id number] [place] [address] 2546 Nov, [facility] [address] [id number] [place] [address] 17[address] Nov, [facility] [address] [id number] [place] [address] Nov, [facility] [address] [id number] [place] [address] Nov, [facility] [address] [id number] [place] [address] Oct, [facility] [address] [id number] [place] [address] 9[address] Oct, [facility] [address] [id number] [place] [address] 254 Oct, [facility] [address] [id number] [place] [address] September, [facility] [address] [id number] [place] [address] 85[address] September, [facility] [address] [id number] [place] [address] 2816 September, [facility] [address] [id number] [place] [address] 2546 September, [facility] [place] [facility] [address] [id number] [place] [address] 1803 September, [facility] [place] [facility] [address] [id number] [place] [address]- 2546 September, [facility] [address] [id number] [place] [address] 3216 September, [facility] [address] [id number] [place] [address] 46[address] 30 Aug, 2012 [facility] [place] [facility] [address] [id number] [place] [address]- 1663 23 Aug, 2012 [facility] [place] [facility] [address] [id number] [place] [address]- 1236 11 Aug, 2012 [facility] [place] [facility] [address] [id number] [place] [address]- 4204 29 Jul, 2012 [facility] [place] [facility] [address] [id number] [place] [address]- 0383 27 Jul, 2012 [facility] [place] [facility] [address] [id number] [place] [address]- 2904 26 Jul, 2012 [facility] [place] [facility] [address] [id number] [place] [address]- 2106 Jul, [facility] [place] [facility] [address] [id number] [place] [address]- 4341 18 Jul, 2012 [facility] [place] [facility] [address] [id number] [place] [address]- 2657 18 Jul, 2012 [facility] [place] [facility] [address] [id number] [place] [address]- 3159 13 Jul, 2012 [facility] [place] [facility] [address] [id number] [place] [address]- 1338 28 Jun, 2012 [facility] [place] [facility] [address] [id number] [place] [address]- 0195 Jun, [facility] [place] [facility] [address] [id number] [place] [address]- 7853 Jun, [facility] [place] [facility] [address] [id number] [place] [address]- 4991 20 Jun, 2012 [facility] [place] [facility] [address] [id number] [place] [address]- 1966 15 Jun, 2012 [facility] [place] [facility] [address] [id number] [place] [address]- 4576 15 Jun, 2012 [facility] [address] [id number] [place] [address]- 2626 13 Jun, 2012 [facility] [address] [id number] [place] [address]- 5356 Jun, [facility] [address] [id number] [place] [address]- 3666 Jun, [facility] [address] [id number] [place] [address]- 2545 Jun, [facility] [address] [id number] [place] [address]- 5337 May, [facility] [address] [id number] [place] [address]- 9422 May, [facility] [address] [id number] [place] [address]- 9921 May, [facility] [address] [id number] [place] [address]- 2037 May, [facility] [address] [id number] [place] [address]- 2241 May, [facility] [address] [facility] [id number] [place] [address]- 3960 May, [facility] [address] [id number] [place] [address]- 9932 Apr, [facility] [address] [id number] [place] [address]- 6694 Apr, [facility] [place] [facility] [address] [id number] [place] [address]- 3705 Apr, [facility] [place] [facility] [address] [id number] [place] [address]- 2543 Apr, [facility] [address] [id number] [place] [address]- 7401 Apr, [facility] [place] [facility] [address] [id number] [place] [address]- 5397 Apr, [facility] [place] [facility] [address] [id number] [place] [address]- 0304 Apr, [facility] [place] [facility] [address] [id number] [place] [address]- 5710 Mar, [facility] [place] [facility] [address] [id number] [place] [address]- 1711 Mar, [facility] [place] [facility] [address] [id number] [place] [address]- 1052 Mar, [facility] [place] [facility] [address] [id number] [place] [address]- 9579 Mar, [facility] [place] [facility] [address] [id number] [place] [address]- 1601 Mar, [facility] [place] [facility] [address] [id number] [place] [address]- 9856 Mar, [facility] [place] [facility] [address] [id number] [place] [address]- 6292 Mar, [facility] [place] [facility] [address] [id number] [place] [address]- 5506 Mar, [facility] [place] [facility] [address] [id number] [place] [address]- 6350 16 Mar, 2012 [facility] [place] [facility] [address] [id number] [address]- 12[address] Mar, [facility] [place] [facility] [address] [id number] [place] [address]- 6398 Mar, [facility] [place] [facility] [address] [id number] [place] [address]- 0856 Mar, [facility] [place] [facility] [address] [id number] [place] [address]- 3845 Mar, [facility] [place] [facility] [address] [id number] [address] 4653 Mar, [facility] [place] [facility] [address] [id number] [place] [address]- 7624 Mar, [facility] [place] [facility] [address] [id number] [place] [address]- 1019 Mar, [facility] [place] [facility] [address] [id number] [place] [address]- 7701 Mar, [facility] [place] [facility] [address] [id number] [place] [address] Feb, [facility] [place] [facility] [address] [id number] [place] [address] Feb, [facility] [place] [facility] [address] [id number] [place] [address]- 7648 Feb, [facility] [place] [facility] [address] [id number] [place] [address]- 2908 Feb, [facility] [place] [facility] [address] [id number] [place] [address]- 5128 Feb, [facility] [place] [facility] [address] [id number] [address]- 1327 Feb, [facility] [place] [facility] [address] [id number] [address]- 9666 Feb, [facility] [place] [facility] [address] [id number] [address]- 5058 Feb, [facility] [place] [facility] [address] [id number] [place] [address]- 6556 Feb, [facility] [place] [facility] [address] [id number] [place] [address]- 5839 Feb, [facility] [place] [facility] [address] [id number] [place] [address] Feb, [facility] [place] [facility] [address] [id number] [place] [address] Jan, [facility] [place] [facility] [address] [id number] [place] [address]- 3180 25 Jan, 2011 [facility] [place] [facility] [address] [id number] [place] [address]- 9876 13 Jan, 2012 [facility] [place] [facility] [address] [id number] [place] [address]- 6086 12 Jan, 2012 [facility] [place] [facility] [address] [id number] [place] [address]- 4656 07 Jan, 2012 [facility] [place] [facility] [address] [id number] [place] [address]- 0099 31 Dec, 2011 [facility] [place] [facility] [address] [id number] [place] [address]- 1000 24 Dec, 2011 [facility] [place] [facility] [address] [id number] [place] [address]- 2886 Dec, [facility] [place] [facility] [address] [id number] [place] [address]- 1957 Dec, [facility] [place] [facility] [address] [id number] [place] [address]- 9504 16 Dec, 2011 [facility] [place] [facility] [address] [id number] [place] [address]- 2451 Dec, [facility] [place] [facility] [address] [id number] [place] [address]- 1798 Dec, [facility] [place] [facility] [address] [id number] [place] [address]- 5480 Dec, [facility] [place] [facility] [address] [id number] [place] [address]- 4012 Nov, [facility] [place] [facility] [address] [id number] [place] [address]- 4329 Nov, [facility] [place] [facility] [address] [id number] [place] [address]- 1875 Nov, [facility] [place] [facility] [address] [id number] [place] [address]- 4523 Nov, [facility] [address] [id number] [place] [address]- 0326 Nov, [facility] [place] [facility] [address] [id number] [place] [address]- 4696 Oct, [facility] [place] [facility] [address] [id number] [place] [address]- 3022 Oct, [facility] [place] [facility] [address] [id number] [place] [address]- 8306 September, [facility] [place] [facility] [address] [id number] [place] [address]- 5024 September, [facility] [place] [facility] [address] [id number] [place] [address]- 5786 September, [facility] [place] [facility] [address] [id number] [place] [address]- 6336 September, [facility] [place] [facility] [address] [id number] [place] [address]- 7529 September, [facility] [place] [facility] [address] [id number] [place] [address]- 4565 September, [facility] [place] [facility] [address] [id number] [place] [address]- 8301 September, [facility] [place] [facility] [address] [id number] [place] [address]- 9846 September, [facility] [place] [facility] [address] [id number] [place] [address]- 1850 September, [facility] [place] [facility] [address] [id number] [place] [address]- 3891 September, [facility] [place] [facility] [address] [id number] [place] [address]- 7606 September, [facility] [place] [facility] [address] [id number] [place] [address]- 9286 September, [facility] [place] [facility] [address] [id number] [address]- 5346 September, [facility] [address] [id number] [place] [address]- 3378 September, [facility] [address] [id number] [place] [address]- 3701 24 Aug, 2011 [facility] [address] [id number] [place] [address]- 1210 Aug, [facility] [address] [id number] [place] [address]- 8882 13 Aug, 2011 [facility] [address] [id number] [place] [address]- 7535 Aug, [facility] [address] [id number] [place] [address]- 3768 23 Jul, 2011 [facility] [address] [id number] [place] [address]- 4172 13 Jul, 2011 [facility] [address] [id number] [place] [address]- 0178 13 Jul, 2011 [facility] [address] [id number] [place] [address]- 5100 28 Jun, 2011 [facility] [id number] [id number] 26 Jun, 2011 [facility] [address] [id number] [place] [address]- 8256 13 Jun, 2011 [facility] [address] [id number] [place] [address]- 0259 10 Jun, 2011 [facility] [address] [id number] [place] [address]- 7254 07 Jun, 2011 [facility] [place] [facility] [address] [facility] [id number] [place] [address]- 2786 07 Jun, 2011 [facility] [address] [id number] [place] [address]- 5196 03 Jun, 2011 [facility] [address] [id number] [place] [address]- 7855 Jun, [facility] [address] [id number] [place] [address]- 6290 May, [facility] [address] [id number] [place] [address]- 8140 May, [facility] [address] [id number] [place] [address]- 5263 May, [facility] [address] [id number] [place] [address]- 3031 May, [facility] [address] [id number] [place] [address]- 7614 May, [facility] [address] [id number] [place] [address]- 2363 May, [facility] [address] [id number] [place] [address]- 7884 May, [facility] [address] [id number] [place] [address]- 4077 May, [facility] [address] [id number] [place] [address]- 9461 May, [facility] [address] [id number] [place] [address]- 6402 May, [facility] [address] [id number] [place] [address]- 6680 May, [facility] [address] [id number] [place] [address]- 3496 May, [facility] [place] [facility] [address] [id number] [place] [address]- 6571 May, [facility] [address] [id number] [place] [address]- 1986 May, [facility] [address] [id number] [place] [address]- 1000 30 Apr, 2011 [facility] [place] [facility] [address] [id number] [place] [address]- 2896 16 Apr, 2011 [facility] [place] [facility] [address] [id number] [place] [address]- 3956 05 Apr, 2011 [facility] [place] [facility] [address] [id number] [place] [address] 2546 Mar, [facility] [place] [facility] [address] [id number] [place] [address]- 2190 Mar, [facility] [place] [facility] [address] [id number] [place] [address]- 4514 31 Feb, 2011 [facility] [place] [facility] [address] [id number] [place] [address]35 26 Feb, 2011 [facility] [place] [facility] [address] [id number] [place] [address]- 2507 Feb, [facility] [place] [facility] [address] [id number] [place] [address]- 3262 20 Feb, 2011 [facility] [place] [facility] [address] [id number] [place] [address]- 0725 Feb, [facility] [place] [facility] [address] [id number] [place] [address]- 5594 Apr, [facility] [place] [facility] [address] [id number] [place] [address]- 8158 22 Apr, 2010 [facility] [place] [facility] [address] [id number] [place] [address]- 0772 16 Apr, 2010 [facility] [place] [facility] [address] [id number] [place] [address] 2546 15 Apr, 2010 [facility] [place] [facility] [address] [id number] [place] [address]- 2540 15 Apr, 2010 [facility] [place] [facility] [address] [id number] [place] [address] 2546 Apr, [facility] [place] [facility] [id number] [address]- 7453 Mar, [facility] [id number] 3673 Mar, [facility] [id number] [address]- 0418 Mar, [facility] [id number] 1228 Feb, [facility] [address]00565100[place] 2934 Feb, [facility] [id number] [place] [address]- 4489 Feb, [facility] [address]00565100[place] 2956 Feb, [facility] [address]00565100[place] [address]- 9001 Dec, [facility] [address]65100[place] 1911 Dec, [facility] [address]00565100[place] [address]- 3664 Oct, [facility] [address]00565100[place] [address]- 5524 Mar, [facility] [address]00565100[place] [address]- 2123 Mar, [facility] [address] [id number] [address] September, IMMUNIZATIONS No Known Immunizations SOCIAL HISTORY Never Assessed REASON FOR VISIT Pain management Consult-Pat MONTGOMERY, PT was seen last night in the ER PLAN OF CARE Activity Details Follow Up with PCP Reason: VITAL SIGNS Height 64 in 2017-11-28 Weight 126.1 lbs 2017-11-28 Temperature 98.3 degrees Fahrenheit 2017-11-28 Heart Rate 72 bpm 2017-11-28 Respiratory Rate 18 2017-11-28 BMI 21.64 kg/m2 2017-11-28 Blood pressure systolic 110 mmHg 2017-11-28 Blood pressure diastolic 72 mmHg 2017-11-28 MEDICATIONS Medication Instructions Dosage Frequency Start Date End Date Duration Status Lansoprazole 30 MG Orally Once a day 1 capsule 24h 30 days Active Macrobid 100 MG TAKE ONE CAPSULE BY MOUTH ONCE DAILY WITH FOOD 90 Active Bentyl 20 mg Orally Four times a day 1 tablet 6h Active Ventolin HFA 108 (90 Base) MCG/ACT Inhalation every 4 hrs 2 puffs as needed 4h Nov, Active Acetaminophen-Codeine #3 300-30 MG Orally every 6 hrs 1 tablet as needed 6h 07 Oct, 2016 28 days Active Pantoprazole Sodium 40 MG Orally Once a day 1 tablet 24h 14 Jun, 2017 30 days Not-Taking Percocet 5-325 MG Active Chlordiazepoxide HCl 10 MG Orally Three times a day 2 capsules 8h Aug, 28 days Active Lisinopril 20 MG Orally Once a day 1 tablet 24h September, 30 days Active Robaxin 500 mg Orally 4 times a day 1 tablet 6h 30 Active Amlodipine Besylate 5 mg Orally Once a day 1 tablet 24h Nov, 30 day(s) Active Neurontin 100 mg Orally 3 times a day 1 capsule 8h September, 30 days Active Fluticasone Propionate 50 MCG/ACT Nasally twice a day 1 spray in each nostril 12h Feb, 30 day(s) Active Ciprofloxacin HCl 500 mg Orally every 12 hrs 1 tablet 12h Nov, Nov, 10 day(s) Active Toprol XL 50 mg Orally 2 times a day 1 tablet 12h Aug, Active RESULTS No Results PROCEDURES Procedure Date Ordered Result Body Site [facility] VISIT ESTABLISHED PATIENT November 28, 2017 INSTRUCTIONS MEDICATIONS ADMINISTERED No Known Medications [...]
--- OUTSIDE RECORDS SUMMARY | 2018-02-12 21:30 | XMS REPORT ---
Author Author VALERIE ZAVALA [facility] Address [address] [place] [address] Care Team Providers Care District Associate Judge Name Role Phone VALERIE ZAVALA Unavailable PROBLEMS Type Condition ICD9-CM Code WEG55-DO Code Onset Dates Condition Status SNOMED Code Problem Generalized anxiety disorder F41.1 Active 73186181 Problem Hypokalemia E87.6 Active 060517274 Problem Right low back pain, with sciatica presence unspecified M54.5 Active 919290448 Problem Pain in right knee M25.561 Active 99990655 Problem Gastroesophageal reflux disease without esophagitis K21.9 Active 271559171 Problem UTI symptoms R39.9 Active 23148804 Problem Essential hypertension I10 Active 23579546 Problem Right foot pain M79.671 Active 86420385 Problem Neuropathy G62.9 Active 634235864 Problem Other emphysema J43.8 Active 90505691 Problem Anxiety F41.9 Active 90636633 Problem Opioid use disorder, moderate, dependence F11.20 Active 59047229 Problem Other chronic pain G89.29 Active 36061442 Problem Bone pain M89.8X9 Active 69848877 Problem Chronic pain G89.29 Active 71246610 Problem Back pain M54.9 Active 039448278 Problem Kidney stones N20.0 Active 98603046 Problem Panic attacks F41.0 Active 179200353 Problem Generalized abdominal pain R10.84 Active 634916200 Problem Renal calculus, right N20.0 Active 25552981 Problem Tobacco abuse Z72.0 Active 69067247 Problem Right upper quadrant abdominal pain R10.11 Active 776134173 Problem Depression, unspecified depression type F32.9 Active 81408738 Problem Weight decrease R63.4 Active 517079267 Problem Pulmonary emphysema, unspecified emphysema type J43.9 Active 13858556 Problem Post-traumatic stress disorder, chronic F43.12 Active 16087866 Problem Weight loss R63.4 Active 139394739 Problem Insomnia, unspecified type G47.00 Active 568794500 ALLERGIES No Information ENCOUNTERS Encounter Location Date Diagnosis [facility] [id number] [place] [address] 01651- 5208 14 Dec, 2017 [facility] [id number] [place] [address] 92096- 5276 13 Dec, 2017 [facility] [address] 97075- 7542 Dec, Medicare welcome exam Z00.00 [facility] [id number] [place] [address] 11405- 2644 17 Nov, 2017 Opioid use disorder, moderate, dependence F11.20 [facility] [id number] [place] [address] 04118- 8451 16 Nov, 2017 Pelvic pain R10.2 ; Acute pyelonephritis N10 and Essential hypertension I10 [facility] [id number] [place] [address] 58221- 1203 28 Oct, 2017 Medicare welcome exam Z00.00 [facility] [id number] [place] [address] 54141- 6192 18 Oct, 2017 Gross hematuria R31.0 ; Urinary tract infection without hematuria, site unspecified N39.0 and Weakness R53.1 [facility] [id number] [place] [address] 27249- 5862 Oct, [facility] [id number] [place] [address] 67001- 8558 Oct, [facility] [id number] [place] [address] 19041- 2798 Oct, Medicare welcome exam Z00.00 [facility] [id number] [place] [address] 32362- 5181 September, Back pain M54.9 and Right anterior knee pain M25.561 [facility] [id number] [place] [address] 74295- 3287 September, [facility] [address] [address] 7149 September, [facility] [id number] [place] [address] 83529- 6523 September, Essential hypertension I10 [facility] [id number] [place] [address] 07904- 3383 September, [facility] [id number] [place] [address] 39639- 9190 September, RLQ abdominal pain R10.31 ; Low back pain M54.5 and Other chronic pain G89.29 [facility] [id number] [place] [address] 50906- 2861 Aug, Medicare welcome exam Z00.00 [facility] [id number] [place] [address] 33292- 6946 Aug, [facility] [id number] [place] [address] 18859- 1272 Aug, Acute pyelonephritis N10 and Medicare welcome exam Z00.00 [facility] [id number] [place] [address] 89316 -5192 Aug, Dysuria R30.0 and Acute pyelonephritis N10 [facility] [id number] [address]- 9817 Aug, [facility] [id number] [place] [address] 71222- 0283 Aug, [facility] [address] [address]- 7812 Aug, [facility] [id number] [place] [address] 39713- 6714 Aug, [facility] [address], [place] [address]- 9588 Jul, [facility] [id number] [place] [address] 67034- 8039 Jul, Renal calculus, right N20.0 and Medicare welcome exam Z00.00 [facility] [id number] [place] [address] 33268 -8161 Jul, Dysuria R30.0 and Renal calculus, right N20.0 [facility] [id number] [place] [address] 55512- 2613 Jul, Medicare welcome exam Z00.00 [facility] [id number] [place] [address] 53408- 7634 Jun, Gastroesophageal reflux disease without esophagitis K21.9 and Generalized abdominal pain R10.84 [facility] [id number] [place] [address] 52139- 0819 Jun, Medicare welcome exam Z00.00 [facility] [id number] [place] [address] 21220- 0344 Jun, [facility] [id number] [place] [address] 81093- 7049 Jun, Medicare welcome exam Z00.00 and Encounter for screening mammogram for malignant neoplasm of breast Z12.31 [facility] [id number] [place] [address] 05658- 3252 Jun, Chronic pain G89.29 [facility] [id number] [place] [address] 91061- 3394 May, [facility] [id number] [place] [address] 50379- 6134 May, Pelvic pain R10.2 [facility] [id number] [place] [address] 51247- 5372 May, Pelvic pain R10.2 [facility] [id number] [place] [address] 67077 -9832 May, Renal calculus, right N20.0 [place] [id number] [place] [address] 30857- 4883 May, Hematuria, unspecified type R31.9 and Nephrolithiasis N20.0 [facility] [id number] [place] [address] 58872 -0949 May, Dysuria R30.0 and Nephrolithiasis N20.0 [facility] [place] [id number] [place] [address] 29692- 8370 May, [facility] [id number] [place] [address] 11231 -9602 May, Abdominal pain R10.9 and Kidney stone N20.0 [facility] [id number] [place] [address] 45753- 1186 May, [facility] [id number] [place] [address] 69512- 1760 May, Chronic pain G89.29 and Panic attacks F41.0 [facility] [id number] [place] [address] 04995- 9243 May, Urinary tract infection without hematuria, site unspecified N39.0 [facility] [id number] [place] [address] 23443- 3162 Apr, Right lower quadrant abdominal pain R10.31 and Abnormal serum lipase level R74.8 [facility] [id number] [place] [address] 28778- 0181 Apr, Recurrent urinary tract infection N39.0 [facility] [id number] [place] [address] 18877- 4778 Apr, UTI symptoms R39.9 ; Recurrent urinary tract infection N39.0 and Pelvic pain R10.2 [facility] [id number] [place] [address] 52811- 1427 Apr, Chronic pain G89.29 and Panic attacks F41.0 [facility] [id number] [place] [address] 79639- 4142 Apr, Dysuria R30.0 [facility] [id number] [place] [address] 08764- 7314 Apr, [facility] [id number] [place] [address] 7803 Apr, Dysuria R30.0 and Urinary tract infection without hematuria , site unspecified N39.0 [facility] [facility] [address] 55181- 6649 Mar, UTI symptoms R39.9 [facility] [address] 35303- 4673 Mar, [facility] [address] 20133- 5067 Mar, Panic attacks F41.0 and Chronic pain G89.29 [facility] [address] 60534- 0269 Mar, [facility] [id number] [place] [address] 09196- 2565 Mar, Dysuria R30.0 [facility] [address] 78260- 5876 Mar, Dysuria R30.0 [facility] [id number] [place] [address] 86313- 6988 Feb, Chronic pain G89.29 ; Shortness of breath R06.02 ; Weight loss R63.4 ; Encounter for immunization Z23 ; Bone pain M89.8X9 ; Right anterior knee pain M25.561 and Cough R05 [facility] [id number] [place] [address] 23942- 3522 Feb, Shortness of breath R06.02 [facility] [id number] [place] [address] 01957- 2562 Feb, [facility] [facility] [address] 49152- 1652 Feb, Panic attacks F41.0 and Chronic pain G89.29 [facility] [address] 33877- 4583 Feb, [facility] [id number] [place] [address] 55344- 9256 Feb, Panic attacks F41.0 ; Shortness of breath R06.02 and Encounter for immunization Z23 [facility] [address] 67136- 6432 Jan, [facility] [facility] [address] 21668- 1057 Jan, Anxiety F41.9 and Chronic pain G89.29 [facility] [address] 92892- 8395 Dec, Anxiety F41.9 and Chronic pain G89.29 [facility] [address] 12560- 3489 Nov, Chronic pain G89.29 [facility] [facility] [address] 02832- 2005 Nov, Anxiety F41.9 [facility] [address] 47215- 1227 Nov, Chronic pain G89.29 ; Essential hypertension I10 and Other emphysema J43.8 [facility] [id number] [place] [address] 69580- 5734 Oct, Anxiety F41.9 [facility] [id number] [place] [address] 50051- 7698 Oct, [facility] [facility] [address] 34383- 2834 Oct, Chronic pain G89.29 [facility] [id number] [place] [address] 59155- 5992 September, Recurrent UTI N39.0 ; Neuropathy G62.9 and Anxiety F41.9 [facility] [id number] [place] [address] 46727- 5589 September, [facility] [id number] [place] [address] 25392- 2325 September, Chronic pain G89.29 [facility] [id number] [place] [address] 84393- 1520 September, [facility] [id number] [place] [address] 90910- 3048 Aug, Post-traumatic stress disorder, chronic F43.12 ; Chronic urinary tract infection N39.0 ; Gastroesophageal reflux disease without esophagitis K21.9 ; Chronic pain G89.29 ; Essential hypertension I10 and Tobacco abuse Z72.0 [facility] [id number] [place] [address] 35272 -5887 Aug, [facility] [id number] [place] [address] 52074- 2848 Aug, Chronic pain G89.29 [facility] [id number] [place] [address] 14926- 9315 Aug, Insomnia, unspecified type G47.00 [facility] [id number] [place] [address] 20231- 9773 Aug, [facility] [id number] [place] [address] 45611- 0238 Jul, Chronic pain G89.29 [facility] [id number] [place] [address] 05079- 6005 Jul, [facility] [id number] [place] [address] 92409- 5995 Jul, [facility] [id number] [place] [address] 33448- 8098 Jul, [facility] [id number] [place] [address] 34105- 7997 15 Jul, 2016 Recurrent UTI (urinary tract infection) N39.0 [facility] [id number] [place] [address] 42915- 6612 14 Jul, 2016 [facility] [id number] [place] [address] 49441- 1538 Jun, Chronic pain G89.29 [facility] [id number] [place] [address] 88760- 0242 17 Jun, 2016 [facility] [id number] [place] [address] 86755- 9945 Jun, [facility] [facility] [id number] [place] [address] 61524- 0450 May, Chronic pain G89.29 [facility] [id number] [place] [address] 03056- 9363 May, Weight loss R63.4 and Shortness of breath R06.02 [facility] [id number] [place] [address] 94246- 7274 May, Chronic pain G89.29 ; Weight loss R63.4 and Tobacco abuse Z72.0 [facility] [id number] [place] [address] 01814- 7789 May, [facility] [id number] [place] [address] 83497- 6243 May, Hypoxia R09.02 [facility] [id number] [place] [address] 47815- 7232 May, [facility] [id number] [place] [address] 40699- 6169 May, Pulmonary emphysema, unspecified emphysema type J43.9 [facility] [id number] [place] [address] 96444 -1223 May, [facility] [id number] [place] [address] 32244- 3094 May, [facility] [id number] [place] [address] 57334- 0427 May, [facility] [address] 35257- 3264 May, Chronic pain G89.29 ; Encounter for immunization Z23 ; Right anterior knee pain M25.561 and Cough R05 [facility] [address] 04648- 0204 Apr, Chronic pain G89.29 [facility] [address] 63555- 5695 Apr, [facility] [address] 87217- 7324 Apr, Generalized anxiety disorder F41.1 and Depression, unspecified depression type F32.9 [facility] [address] 27027- 6681 Apr, Chronic pain G89.29 ; Hypokalemia E87.6 and Insomnia, unspecified type G47.00 [facility] [id number] [place] [address] 76746- 7214 Apr, [facility] [id number] [place] [address] 49841- 3017 Apr, Chronic pain G89.29 [facility] [id number] [place] [address] 12385- 6806 Apr, [facility] [id number] [place] [address] 92170- 7734 Mar, [facility] [id number] [place] [address] 57500- 9087 Mar, Insomnia, unspecified type G47.00 [facility] [id number] [place] [address] 35560- 0406 Mar, Chronic pain G89.29 [facility] [id number] [place] [address] 47253- 1990 Mar, [facility] [address], [place] [address]- 7562 Feb, [facility] [address], [place] [address]- 0231 Feb, [facility] [id number] [place] [address] 66210- 0403 Feb, [facility] [id number] [place] [address] 92728- 8013 Feb, [facility] [id number] [place] [address] 88083- 1578 Feb, [facility] [id number] [place] [address] 41740- 1900 29 Jan, 2016 [facility] [id number] [place] [address] 89203- 1287 26 Jan, 2016 [facility] [id number] [address]- 3270 20 Jan, 2016 [facility] [id number] [place] [address] 95160- 5443 13 Jan, 2016 [facility] [address] [address]- 5625 12 Jan, 2016 [facility] [address] [place] [address]- 6806 07 Jan, 2016 Chronic pain G89.29 [facility] [address] [address]- 9851 Jan, Chronic pain G89.29 and Fibromyalgia M79.7 [facility] [id number] [place] [address] 67042- 7664 Dec, Depression, unspecified depression type F32.9 and Generalized anxiety disorder 300.02 [facility] [address], [place] [address]- 1595 Dec, Dysthymia F34.1 ; Insomnia, unspecified type G47.00 and Chronic pain G89.29 [facility] [address] [facility] [id number] [place] [address] 55421- 1959 Dec, Chronic pain G89.29 [facility] [id number] [place] [address] 78526 2548 Dec, Insomnia, unspecified type G47.00 [facility] [id number] [place] [address] 24136 2548 Dec, Fibromyalgia M79.7 and Chronic pain G89.29 [facility] [id number] [place] [address] 17402- 4809 Dec, [facility] [id number] [place] [address] 43118- 1482 Dec, [facility] [id number] [place] [address] 29133- 4095 Dec, [facility] [id number] [place] [address] 59219 2547 Dec, [facility] [id number] [place] [address] 88066- 1184 Dec, Chronic pain G89.29 [facility] [id number] [place] [address] 61474 2543 Dec, [facility] [id number] [place] [address] 16844 254 Dec, [facility] [id number] [place] [address] 80582 2549 Dec, [facility] [id number] [place] [address] 52782 2548 Dec, Chronic pain G89.29 and Dysthymia F34.1 [facility] [id number] [place] [address] 75875 2548 Nov, [facility] [id number] [place] [address] 29740- 2592 Nov, Hypokalemia E87.6 and Chronic pain G89.29 [place] [id number] 13328- 6317 Nov, Back pain M54.9 and Pain in right knee M25.561 [facility] [address] 32726- 8859 Nov, [place] [address] 80710- 7243 Nov, Chronic pain G89.29 [place] [address] 69015- 8570 Nov, Chronic pain G89.29 ; Weight loss R63.4 ; Bone pain M89.8X9 and Insomnia, unspecified type G47.00 [place] [address] 17332- 5740 Nov, Chronic pain G89.29 [place] [address] 08213- 0967 Nov, Chronic pain G89.29 [place] [address] 84047- 9506 Oct, Chronic pain G89.29 [facility] [id number] [place] [address] 61874- 2834 Oct, UTI symptoms R39.9 [facility] [address] 06985- 0003 27 Oct, 2015 Chronic pain G89.29 [place] [address] 41360- 4300 20 Oct, 2015 Chronic pain G89.29 [facility] [id number] [place] [address] 66048- 5272 13 Oct, 2015 Chronic pain G89.29 [place] [address] 70470- 5259 Oct, Right upper quadrant abdominal pain R10.11 [facility] [address] [address]- 4250 Oct, Chronic pain G89.29 [facility] [id number] [place] [address] 30112- 5799 Oct, [facility] [id number] [place] [address] 61732- 4459 September, Chronic pain G89.29 [facility] [id number] [place] [address] 40104- 1181 September, Dysuria R30.0 and Urinary tract infection without hematuria , site unspecified N39.0 [facility] [id number] [place] [address] 71281- 3415 September, [facility] [id number] [place] [address] 02471- 0360 September, Dysuria R30.0 [facility] [id number] [place] [address] 43201- 9284 September, Chronic pain G89.29 [facility] [id number] [place] [address] 75535- 7501 September, Chronic pain G89.29 and Essential hypertension I10 [facility] [id number] [address] September, [facility] [id number] [place] [address] 64473- [phone] September, [facility] [id number] [address] September, [facility] [id number] [place] [address] 23632- 7639 Aug, UTI symptoms R39.9 [facility] [id number] [address] 7[address] Aug, Dysuria R30.0 [facility] [id number] [place] [address] [id number]- 4322 Aug, [facility] [id number] [place] [address] 42042- 6825 Aug, [facility] [id number] [place] [address] 70085- 4594 Aug, [facility] [address] 73406- 2487 Aug, Chronic pain G89.29 [facility] [id number] [place] [address] 47899- 8919 Aug, Dysthymia F34.1 [facility] [id number] [place] [address] 41079- 8849 Aug, Conjunctivitis, unspecified conjunctivitis type, unspecified laterality H10.9 [facility] [id number] [place] [address] 71728- 0545 Jul, Chronic pain G89.29 ; Back pain M54.9 ; Tobacco abuse Z72.0 and Weight decrease R63.4 [facility] [id number] [place] [address] 60964- [phone] Jul, [facility] [id number] [place] [address] [id number]- 6285 Jul, [facility] [id number] [place] [address] 66724- [phone] 24 Jul, 2015 Chronic pain G89.29 [facility] [id number] [place] [address] 64110- 6168 Jul, [facility] [id number] [place] [address] [id number]- 9270 Jul, [facility] [id number] [place] [address] [id number]- 6514 Jul, [facility] [id number] [place] [address] 23879- [phone] 17 Jul, 2015 [facility] [address], [place] [address] 17 Jul, 2015 Chronic pain G89.29 [facility] [id number] [place] [address] 95120- 6102 16 Jul, 2015 Chronic pain G89.29 [facility] [id number] [place] [address] 73402- 3033 15 Jul, 2015 [facility] [id number] [place] [address] 00188- 3861 Jul, [facility] [id number] [place] [address] 35381- 1110 Jul, [facility] [id number] [place] [address] 47574- 3996 Jul, [facility] [id number] [place] [address] 01453- 8973 Jun, [facility] [id number] [place] [address] 57642- 7802 Jun, Depression, unspecified depression type F32.9 [facility] [id number] [place] [address] 26509- 1867 Jun, Pain in right knee M25.561 [facility] [id number] [place] [address] 13033- 8401 Jun, Chronic pain G89.29 ; Back pain M54.9 ; Bone pain M89.8X9 and Weight loss R63.4 [facility] [id number] [place] [address] 37105- 8763 Jun, [facility] [id number] [place] [address] 49815- 4027 May, [facility] [address], [place] [address] 8207 May, UTI symptoms R39.9 ; Pain in right knee M25.561 ; Right low back pain, with sciatica presence unspecified M54.5 ; Right foot pain M79.671 ; Hypokalemia E87.6 and Screening, lipid Z13.220 [facility] [id number] [place] [address] 18218- 8133 May, [facility] [id number] [place] [address] 90754- 9086 May, [facility] [address] 37720- 5999 Mar, [facility] [address] 01400- 3076 Mar, [facility] [id number] [place] [address] 90305- 2045 Mar, Hypokalemia E87.6 [facility] [address] 0[address]85- 0887 Mar, Pain in right leg M79.604 ; Encounter for immunization Z23 ; Pain in right knee M25.561 and Hypokalemia E87.6 [facility] [id number] [place] [address] 87315- 5677 Jan, [facility] [id number] [place] [address] 62590- 7175 Jan, [facility] [id number] [place] [address] 20148 254 Jan, Abdominal pain, generalized 789.07 [facility] [id number] [place] [address] 53918 2542 Jan, Abdominal pain, generalized 789.07 [facility] [id number] [place] [address] 47578- 1531 Dec, [facility] [id number] [place] [address] 22375- 0146 Dec, [facility] [id number] [address]- 6786 Dec, [facility] [id number] [place] [address] 97593- 2039 Nov, Hallux valgus 735.0 and Hammertoe 735.4 [facility] [address], [place] [address]- 4516 Nov, [facility] [id number] [place] [address] 56753- 5919 Nov, Hallux valgus 735.0 and Hammer toe 735.4 [facility] [id number] [place] [address] 49779- 3339 Oct, [facility] [id number] [place] [address] 33262- 0659 Oct, [facility] [id number] [place] [address] 65629- 9033 Oct, Pre-op evaluation V72.84 [facility] [id number] [place] [address] 39614- 6406 Oct, [facility] [id number] [place] [address] 14434- 2354 Oct, [facility] [address], [place] [address]- 5492 September, [facility] [address], [place] [address] 2547 September, [facility] [id number] [address]- 7705 September, Hallux valgus (acquired) 735.0 and Other hammer toe ( acquired) 735.4 [facility] [address], [place] [address]- 6356 Aug, [facility] [address], [place] [address]- 2540 Aug, [facility] [place] [facility] [address] [id number] [place] [address]- 3606 Jul, [facility] [place] [facility] [address] [id number] [place] [address]- 9580 Jul, [facility] [place] [facility] [address] [id number] [place] [address]- 7982 Jul, [facility] [place] [facility] [address] [id number] [place] [address]- 0720 Jul, [facility] [place] [facility] [address] [id number] [place] [address]- 9603 Jul, [facility] [place] [facility] [address] [id number] [place] [address]- 7199 Jul, [facility] [place] [facility] [address] [facility] [id number] [place] [address]- 9501 Jul, [facility] [place] [facility] [address] [id number] [place] [address]- 7530 Jul, [facility] [place] [facility] [address] [id number] [place] [address]- 3576 Jun, [facility] [place] [facility] [address] [id number] [place] [address]- 0177 Jun, [facility] [place] [facility] [address] [id number] [place] [address]- 1626 Jun, [facility] [place] [facility] [address] [id number] [place] [address]- 4680 Jun, [facility] [place] [facility] [address] [id number] [place] [address]- 7677 Jun, [facility] [place] [facility] [address] [id number] [place] [address]- 4938 Jun, [facility] [place] [facility] [address] [facility] [id number] [place] [address]- 5108 Jun, [facility] [place] [facility] [address] [id number] [place] [address]- 9958 Jun, [facility] [address] [id number] [place] [address]- 4076 Jun, [facility] [place] [facility] [address] [id number] [place] [address]- 2574 Jun, [facility] [address] [id number] [place] [address]- 5556 May, [facility] [place] [facility] [address] [id number] [place] [address]- 0997 May, [facility] [address] [id number] [place] [address]- 4703 May, [facility] [place] [facility] [address] [id number] [place] [address]- 7167 May, [facility] [address] [id number] [place] [address]- 5519 May, [facility] [address] [id number] [place] [address]- 3306 May, [facility] [place] [facility] [address] [id number] [place] [address]- 4857 May, [facility] [address] [id number] [place] [address]- 9382 May, [facility] [place] [facility] [address] [id number] [place] [address]- 9603 May, [facility] [place] [facility] [address] [id number] [place] [address]- 8097 May, [facility] [place] [facility] [address] [id number] [place] [address]- 0376 May, [facility] [place] [facility] [address] [id number] [place] [address]- 7001 May, [facility] [place] [facility] [address] [id number] [place] [address]- 7571 May, [facility] [place] [facility] [address] [id number] [place] [address]- 1987 May, [facility] [place] [facility] [address] [id number] [place] [address]- 7276 May, [facility] [place] [facility] [address] [id number] [place] [address]- 6963 May, [facility] [place] [facility] [address] [id number] [place] [address]- 8876 May, [facility] [place] [facility] [address] [id number] [place] [address]- 8854 May, [facility] [place] [facility] [address] [id number] [place] [address]- 6886 Apr, [facility] [place] [facility] [address] [id number] [place] [address]- 2298 Apr, [facility] [place] [facility] [address] [id number] [place] [address]- 7816 Apr, [facility] [place] [facility] [address] [id number] [place] [address]- 9136 Apr, [facility] [place] [facility] [address] [id number] [place] [address]- 3259 Apr, [facility] [place] [facility] [address] [id number] [place] [address]- 9204 Apr, [facility] [place] [facility] [address] [id number] [address]- 0862 Apr, [facility] [place] [facility] [address] [id number] [place] [address]- 7086 Apr, [facility] [place] [facility] [address] [id number] [place] [address]- 3113 Apr, [facility] [place] [facility] [address] [id number] [place] [address]- 7725 Mar, [facility] [place] [facility] [address] [id number] [address]- 9807 Mar, [facility] [place] [facility] [address] [id number] [place] [address]- 7801 Mar, [facility] [place] [facility] [address] [id number] [place] [address]- 8094 Mar, [facility] [place] [facility] [address] [id number] [place]00 Mar, [facility] [place] [facility] [address] [id number] [place] [address]- 9812 Feb, [facility] [place] [facility] [address] [id number] [place] [address]- 3551 Feb, [facility] [place] [facility] [address] [id number] [place] [address]- 3663 Feb, [facility] [place] [facility] [address] [id number] [place] [address]- 7562 Feb, [facility] [place] [facility] [address] [id number] [place] [address]- 2000 Feb, [facility] [place] [facility] [address] [facility] [id number] [place] [address]- 0575 Feb, [facility] [place] [facility] [address] [facility] [id number] [address]- 0408 Feb, [facility] [place] [facility] [address] [id number], [place] [address]- 0183 Feb, [facility] [place] [facility] [address] [id number], [place] [address]- 1976 Feb, [facility] [place] [facility] [address] [id number], [place] [address]- 2817 Feb, [facility] [place] [facility] [address] [facility] [id number], [place] [address]- 0111 Feb, [facility] [place] [facility] [address] [facility] [id number], [place] [address]- 5254 Feb, [facility] [place] [facility] [address] [id number] [place] [address]- 3281 07 Feb, 2013 [facility] [place] [facility] [address] [id number] [place] [address]- 5054 Feb, 2013 [facility] [place] [facility] [address] [id number] [place] 8506 Feb, 2013 [facility] [place] [facility] [address] [id number] [place] [address]- 8482 Feb, 2013 [facility] [place] [facility] [address] [id number] [place] [address]- 2859 23 Jan, 2013 [facility] [place] [facility] [address] [id number] [place] [address]- 2062 23 Jan, 2013 [facility] [place] [facility] [address] [id number] [place] [address]- 3209 20 Jan, 2013 [facility] [place] [facility] [address] [id number] [place] [address]- 9464 19 Jan, 2013 [facility] [place] [facility] [address] [id number] [place] [address]- 2971 11 Jan, 2013 [facility] [place] [facility] [address] [id number] [place] [address]- 5391 11 Jan, 2013 [facility] [place] [facility] [address] [id number] [place] [address]- 2980 Jan, 2013 [facility] [place] [facility] [address] [id number] [place] [address]- 2921 Jan, 2013 [facility] [place] [facility] [address] [id number] [place] [address]- 6905 Dec, [facility] [place] [facility] [address] [id number] [place] 3266 Dec, [facility] [place] [facility] [address] [id number] [place] [address]- 8916 Nov, [facility] [place] [facility] [address] [id number] [place] [address]- 0820 Nov, [facility] [place] [facility] [address] [id number] [place] [address]- 6674 Nov, [facility] [place] [facility] [address] [id number] [place] [address]- 2022 Nov, [facility] [place] [facility] [address] [id number] [place] [address]- 7384 Nov, [facility] [place] [facility] [address] [id number] [place] [address]- 1830 Nov, [facility] [place] [facility] [address] [id number] [place] [address]- 8843 Nov, [facility] [place] [facility] [address] [id number] [place] [address]- 4203 Nov, [facility] [place] [facility] [address] [id number] [place] [address]- 3051 Nov, [facility] [place] [facility] [address] [id number] [place] [address]- 1873 Oct, [facility] [place] [facility] [address] [id number] [place] [address]- 0428 Oct, [facility] [place] [facility] [address] [id number] [place] [address]- 7103 Oct, [facility] [place] [facility] [address] [id number] [place] [address]- 7110 Oct, [facility] [place] [facility] [address] [id number] [place] [address]- 6091 Oct, [facility] [place] [facility] [address] [id number] [place] [address]- 7141 Oct, [facility] [place] [facility] [address] [id number] [place] [address]- 0486 September, [facility] [place] [facility] [address] [id number] [place] [address]- 1523 September, [facility] [place] [facility] [address] [id number] [place] [address]- 6572 September, [facility] [address] [id number] [place] [address]- 5761 September, [facility] [address] [id number] [place] 5452 September, [facility] [address] [id number] [place] [address]- 7463 September, [facility] [place] [facility] [address] [id number] [place] [address]- 9669 September, [facility] [address] [id number] [place] 7415 September, [facility] [address] [id number] [place] [address]- 9256 September, [facility] [address] [id number] [place] [address]- 3206 September, [facility] [address] [id number] [place] [address]- 7437 September, [facility] [address] [id number] [place] [address]- 8923 September, [facility] [address] [id number] [place] [address]- 4210 September, [facility] [address] [id number] [place] [address]- 6016 September, [facility] [place] [facility] [address] [id number] [place] [address]- 5858 September, [facility] [place] [facility] [address] [id number] [place] [address]- 7778 September, [facility] [place] [facility] [address] [id number] [place] 1589 September, [facility] [place] [facility] [address] [id number] [place] [address]- 4815 September, [facility] [place] [facility] [address] [id number] [place] [address]- 5631 September, [facility] [place] [facility] [address] [id number] [place] [address]- 9290 September, [facility] [place] [facility] [address] [id number] [place] [address]- 7894 Aug, [facility] [place] [facility] [address] [id number] [place] [address]- 5221 Aug, [facility] [place] [facility] [address] [id number] [place] [address]- 2726 Aug, [facility] [place] [facility] [address] [id number] [place] [address]- 8773 Aug, [facility] [place] [facility] [address] [id number] [place] [address]- 9501 Aug, [facility] [place] [facility] [address] [id number] [place] [address]- 5681 Aug, [facility] [place] [facility] [address] [id number] [place] [address]- 5747 Aug, [facility] [place] [facility] [address] [id number] [place] [address]- 7865 Aug, [facility] [place] [facility] [address] [id number] [place] [address]- 4770 Aug, [facility] [place] [facility] [address] [id number] [place] [address]- 3806 15 Aug, 2013 [facility] [place] [facility] [address] [id number] [place] [address]- 7083 14 Aug, 2013 [facility] [place] [facility] [address] [id number] [place] [address]- 3420 Aug, [facility] [place] [facility] [address] [id number] [place] [address]- 6632 Aug, [facility] [place] [facility] [address] [id number] [place] [address]- 9396 Aug, [facility] [place] [facility] [address] [id number] [place] [address]- 6646 Aug, [facility] [place] [facility] [address] [id number] [place] [address]- 9186 Jul, [facility] [place] [facility] [address] [id number] [place] [address]- 7954 Jul, [facility] [place] [facility] [address] [id number] [place] [address]- 5004 Jul, [facility] [place] [facility] [address] [id number] [place] [address]- 5645 Jul, [facility] [place] [facility] [address] [id number] [place] [address]- 2071 Jul, [facility] [place] [facility] [address] [id number] [place] [address]- 6808 Jul, [facility] [place] [facility] [address] [id number] [place] [address]- 3788 Jul, [facility] [place] [facility] [address] [id number] [place] [address]- 7023 Jul, [facility] [place] [facility] [address] [id number] [place] [address]- 3718 Jul, [facility] [place] [facility] [address] [id number] [place] [address]- 4397 Jul, [facility] [place] [facility] [address] [id number] [place] [address]- 2331 Jul, [facility] [place] [facility] [address] [id number] [place] [address]- 4003 Jul, [facility] [place] [facility] [address] [id number] [place] [address]- 4390 Jul, [facility] [place] [facility] [address] [id number] [place] [address]- 9234 Jul, [facility] [place] [facility] [address] [id number] [place] [address]- 1370 Jul, [facility] [place] [facility] [address] [id number] [place] [address]- 5646 Jun, [facility] [place] [facility] [address] [id number] [place] [address]- 2796 Jun, [facility] [place] [facility] [address] [id number] [place] [address]- 9416 Jun, [facility] [place] [facility] [address] [id number] [place] [address] Jun, [facility] [place] [facility] [address] [id number] [place] [address] Jun, [facility] [place] [facility] [address] [id number] [place] [address] Jun, [facility] [place] [facility] [address] [id number] [place] [address] May, [facility] [place] [facility] [address] [id number] [place] [address] May, [facility] [place] [facility] [address] [id number] [place] [address] May, [facility] [place] [facility] [address] [id number] [place] [address] May, [facility] [place] [facility] [address] [id number] [place] [address] May, [facility] [place] [facility] [address] [id number] [place] [address] May, [facility] [place] [facility] [address] [id number] [place] [address] May, [facility] [place] [facility] [address] [id number] [place] [address] May, [facility] [place] [facility] [address] [id number] [place] [address] May, [facility] [address] [id number] [place] [address] May, [facility] [place] [facility] [address] [id number] [place] [address]- [address] May, [facility] [place] [facility] [address] [id number] [place] [address] May, [facility] [place] [facility] [address] [id number] [place] [address] May, [facility] [place] [facility] [address] [id number] [place] [address] May, [facility] [place] [facility] [address] [id number] [place] [address]- [address] May, [facility] [place] [facility] [address] [id number] [place] [address] Apr, [facility] [place] [facility] [address] [id number] [place] [address] Apr, [facility] [place] [facility] [address] [id number] [place] [address]- [address] Apr, [facility] [place] [facility] [address] [id number] [place] [address]- [address] Apr, [facility] [place] [facility] [address] [id number] [place] [address]- [address] Apr, [facility] [place] [facility] [address] [id number], [place] [address] Apr, [facility] [place] [facility] [address] [id number] [place] [address] Apr, [facility] [place] [facility] [address] [id number] [place] [address] 79[address] Apr, [facility] [place] [facility] [address] [id number] [place] [address] Apr, [facility] [place] [facility] [address] [id number] [place] [address] Apr, [facility] [address] [id number] [place] [address]- [address]284 Mar, [facility] [place] [facility] [address] [id number] [place] [address] Mar, [facility] [address] [id number] [place] [address] Mar, [facility] [place] [facility] [address] [id number] [place] [address] 40[address] Mar, [facility] [address] [id number] [place] [address]- [address] Mar, [facility] [place] [facility] [address] [id number] [place] [address]- 68[address] Mar, [facility] [address] [id number] [place] [address]- [address] Mar, [facility] [address] [id number] [place] [address] 12[address] Mar, [facility] [place] [facility] [address] [id number] [place] [address] Mar, [facility] [address] [id number] [place] [address] Mar, [facility] [place] [facility] [address] [id number] [place] [address] Mar, [facility] [place] [facility] [address] [id number], [place] [address] Mar, [facility] [place] [facility] [address] [id number] [place] [address]- [address] Mar, [facility] [place] [facility] [address] [id number] [place] [address]- [address]200 Mar, [facility] [place] [facility] [address] [id number] [place] [address]- [address] Mar, [facility] [place] [facility] [address] [id number] [place] [address]- [address] Mar, [facility] [place] [facility] [address] [id number] [place] [address]- 7760 Mar, [facility] [place] [facility] [address] [id number] [place] [address]- 1412 Mar, [facility] [place] [facility] [address] [id number] [place] [address] 4038 Mar, [facility] [place] [facility] [address] [id number] [place] [address]- 7697 Mar, [facility] [place] [facility] [address] [id number] [place] [address]- [address]66 Mar, [facility] [place] [facility] [address] [id number] [place] [address]- [address]26 Mar, [facility] [place] [facility] [address] [id number] [place] [address]- [address] Mar, [facility] [place] [facility] [address] [id number] [place] [address]- 1688 Feb, [facility] [place] [facility] [address] [id number] [place] [address]- 3145 Feb, [facility] [place] [facility] [address] [id number] [place] [address]- 7912 Feb, [facility] [place] [facility] [address] [id number], [place] [address] 118[address] Feb, [facility] [place] [facility] [address] [id number] [place] [address] 15 Feb, 2013 [facility] [place] [facility] [address] [id number] [place] [address] Feb, [facility] [place] [facility] [address] [id number] [address] Feb, [facility] [place] [facility] [address] [id number], [place] [address]- [address] Feb, [facility] [place] [facility] [address] [id number] [place] [address]- 0943 Feb, [facility] [place] [facility] [address] [id number] [place] [address]- 2979 Feb, [facility] [place] [facility] [address] [id number] [place] [address]- [address] 30 Jan, 2013 [facility] [place] [facility] [address] [id number] [place] [address]- [address] 26 Jan, 2013 [facility] [place] [facility] [address] [id number] [place] [address]- [address] 24 Jan, 2013 [facility] [place] [facility] [address] [id number] [place] [address]- [address] 23 Jan, 2013 [facility] [place] [facility] [address] [id number] [place] [address]- [address]285 17 Jan, 2013 [facility] [place] [facility] [address] [id number] [place] [address]- [address] Dec, [facility] [facility] [address] [id number] [place] [address] Dec, [facility] [place] [facility] [address] [id number] [place] [address] Dec, [facility] [place] [facility] [address] [id number] [place] [address] 3385 Dec, [facility] [place] [facility] [address] [id number] [place] [address] 6539 14 Dec, 2012 [facility] [place] [facility] [address] [id number] [place] [address] Dec, [facility] [place] [facility] [address] [id number] [place] [address] 2906 Dec, [facility] [place] [facility] [address] [id number] [place] [address]101 Nov, [facility] [place] [facility] [address] [id number] [place] [address] 2546 16 Nov, 2012 [facility] [address] [id number] [place] [address] 3026 15 Nov, 2012 [facility] [address] [id number] [place] [address] 2546 05 Nov, 2012 [facility] [address] [id number] [place] [address] 2546 Nov, [facility] [address] [id number] [place] [address] 8188 Oct, [facility] [address] [id number] [place] [address] 5750 Oct, [facility] [address] [id number] [place] [address] 2146 Oct, [facility] [address] [id number] [place] [address] 6656 September, [facility] [address] [id number] [place] [address]- 6610 September, [facility] [address] [id number] [place] [address]- 6456 September, [facility] [address] [id number] [place] [address]- 2826 September, [facility] [address] [id number] [place] [address]- 9546 September, [facility] [address] [id number] [place] [address]- 5444 September, [facility] [address] [id number] [place] [address]- 1786 September, [facility] [address] [id number] [place] [address]- 5266 Aug, [facility] [address] [id number] [place] [address]- 4346 Aug, [facility] [address] [id number] [place] [address]- 5656 11 Aug, 2012 [facility] [facility] [address] [id number] [place] [address]- 1706 29 Jul, 2012 [facility] [address] [id number] [place] [address]- 6201 27 Jul, 2012 [facility] [address] [id number] [place] [address]- 9488 26 Jul, 2012 [facility] [place] [facility] [address] [id number] [place] [address]- 3993 20 Jul, 2012 [facility] [address] [id number] [place] [address]- 6838 18 Jul, 2012 [facility] [address] [id number] [place] [address]- 3543 18 Jul, 2012 [facility] [address] [id number] [place] [address]- 3072 13 Jul, 2012 [facility] [address] [id number] [place] [address]- 3044 28 Jun, 2012 [facility] [address] [id number] [place] [address]- 4062 27 Jun, 2012 [facility] [facility] [address] [id number] [place] [address]- 1425 22 Jun, 2012 [facility] [address] [id number], [place] [address] 9[address] 20 Jun, 2012 [facility] [facility] [address] [id number] [place] [address]- 9569 15 Jun, 2012 [facility] [facility] [address] [id number] [place] [address] 15 Jun, 2012 [facility] [address] [id number] [place] [address]- 1264 13 Jun, 2012 [facility] [address] [id number] [place] [address]- 2546 Jun, [facility] [address] [id number] [place] [address]- 7246 Jun, [facility] [address] [id number] [place] [address]- 2546 Jun, [facility] [address] [id number] [place] [address]- 6856 May, [facility] [address] [id number] [place] [address]- 2546 May, [facility] [address] [id number] [place] [address]- 2326 May, [facility] [address] [id number] [place] [address]- 1406 May, [facility] [address] [id number] [place] [address]- 2193 May, [facility] [address] [id number] [place] [address]- 6498 May, [facility] [address] [id number] [place] [address]- 6636 31 Apr, 2012 [facility] [address] [id number] [place] [address]- 4746 31 Apr, 2012 [facility] [address] [id number] [place] [address] 2546 28 Apr, 2012 [facility] [address] [id number] [place] [address]- 2546 28 Apr, 2012 [facility] [address] [id number] [place] [address]- 2546 Apr, [facility] [address] [id number] [place] [address]- 2546 Apr, [facility] [address] [id number] [place] [address]- 2614 Apr, [facility] [address] [id number] [place] [address]- 2222 Mar, [facility] [address] [id number] [place] [address]- 6535 29 Mar, 2012 [facility] [address] [id number] [place] [address]- 4772 Mar, [facility] [address] [id number] [place] [address]- 7807 Mar, [facility] [address] [id number] [place] [address]- 4693 Mar, [facility] [address] [id number] [place] [address]- 8757 Mar, [facility] [address] [id number] [place] [address]- 0840 Mar, [facility] [address] [id number] [place] [address]- 1245 Mar, [facility] [address] [id number] [place] [address]- 7638 Mar, [facility] [address] [id number] [place] [address]- 0976 Mar, [facility] [address] [id number], [place] [address]- 7191 Mar, [facility] [address] [id number], [place] [address]- 9810 Mar, [facility] [address] [id number] [place] [address]- 4550 Mar, [facility] [address] [id number], [place] [address]- 6774 Mar, [facility] [address] [id number], [place] [address]- 3233 Mar, [facility] [address] [id number] [place] [address]- 2480 Mar, [facility] [address] [id number] [place] [address]- 7645 Mar, [facility] [address] [id number] [place] [address]- 8868 Feb, [facility] [address] [id number] [place] [address]- 0255 Feb, [facility] [address] [id number] [place] [address]- 0327 Feb, [facility] [address] [id number] [place] [address]- 4853 Feb, [facility] [address] [id number] [place] [address]- 6707 Feb, [facility] [address] [id number] [place] [address]- 9088 Feb, [facility] [address] [id number] [place] [address]- 1712 Feb, [facility] [address] [id number] [place] [address]- 6465 Feb, [facility] [address] [facility] [id number] [place] [address]- 3457 Feb, [facility] [address] [id number] [place] [address]- 5426 Feb, [facility] [address] [id number] [place] [address]- 2903 Feb, [facility] [address] [id number] [place] [address]- 3781 Jan, [facility] [address] [id number] [place] [address]- 9526 Jan, [facility] [address] [id number], [place] [address]- 3167 13 Jan, 2012 [facility] [address] [id number] [place] [address]- 8079 Jan, [facility] [address] [id number] [place] [address]- 0701 Jan, [facility] [address] [id number] [place] [address]- 1760 Dec, [facility] [address] [id number] [place] [address]- 8943 Dec, [facility] [address] [id number] [place] [address]- 4631 Dec, [facility] [address] [id number] [place] [address]- 8909 Dec, [facility] [address] [id number] [place] [address]- 9851 Dec, [facility] [address] [id number] [place] [address]- 9787 Dec, [facility] [address] [id number] [place] [address]- 1307 Dec, [facility] [address] [id number] [place] [address]- 4675 Dec, [facility] [address] [id number] [place] [address]- 1268 Nov, [facility] [address] [id number] [place] [address]- 8007 Nov, [facility] [address] [id number] [place] [address]- 0536 Nov, [facility] [address] [id number] [place] [address]- 1211 Nov, [facility] [address] [id number] [place] [address]- 5014 Nov, [facility] [address] [id number] [place] [address]- 2586 Oct, [facility] [address] [id number] [place] [address]- 2683 Oct, [facility] [address] [id number] [place] [address]- 6266 September, [facility] [address] [id number] [place] [address]- 3446 September, [facility] [address] [id number] [place] [address]- 6320 September, [facility] [address] [id number] [place] [address]- 8192 September, [facility] [address] [id number] [place] [address]- 6370 September, [facility] [address] [id number] [place] [address]- 8749 September, [facility] [address] [id number] [place] [address]- 6697 September, [facility] [address] [id number] [place] [address]- 7734 September, [facility] [address] [id number] [place] [address]- 0953 September, [facility] [address] [id number] [place] [address]- 3376 September, [facility] [address] [id number] [place] [address]- 5481 September, [facility] [address] [id number] [place] [address]- 8863 September, [facility] [address] [id number] [place] [address]- 4286 September, [facility] [address] [id number] [place] [address]- 6656 September, [facility] [address] [id number] [place] [address]- 5346 24 Aug, 2011 [facility] [address] [id number] [place] [address]- 7188 20 Aug, 2011 [facility] [address] [id number] [place] [address]- 4326 13 Aug, 2011 [facility] [address] [id number] [place] [address]- 6086 11 Aug, 2011 [facility] [address] [id number] [place] [address]- 2316 23 Jul, 2011 [facility] [address] [id number] [place] [address]- 7505 13 Jul, 2011 [facility] [address] [id number] [place] [address]- 5956 13 Jul, 2011 [facility] [address] [id number] [place] [address]- 9033 28 Jun, [address] [address] [id number] [id number] 26 Jun, 2011 [facility] [address] [id number] [place] [address]- 1671 13 Jun, 2011 [facility] [address] [facility] [id number] [place] [address]- 6446 10 Jun, 2011 [facility] [address] [id number] [place] [address]- 9666 07 Jun, 2011 [facility] [address] [id number] [place] [address]- 2546 07 Jun, 2011 [facility] [address] [id number] [place] [address]- 5946 03 Jun, 2011 [facility] [address] [id number] [place] [address]- 2546 02 Jun, 2011 [facility] [address] [id number] [place] [address] May, [facility] [address] [id number] [place] [address]- 1812 30 May, 2011 [facility] [address] [id number] [place] [address]- 2015 May, [facility] [address] [id number] [place] [address]- 6544 May, [facility] [place] [facility] [address] [id number] [place] [address]- 8639 May, [facility] [address] [id number] [place] [address]- 9434 May, [facility] [place] [facility] [address] [id number] [place] [address]- 2814 May, [facility] [address] [id number] [place] [address]- 3397 May, [facility] [place] [facility] [address] [id number] [place] [address]- 7926 May, [facility] [place] [facility] [address] [id number] [place] [address]- 3813 May, [facility] [place] [facility] [address] [id number] [place] [address]- 1046 May, [facility] [place] [facility] [address] [id number] [place] [address]- 6936 May, [facility] [place] [facility] [address] [id number] [place] [address]- 2565 May, [facility] [place] [facility] [address] [id number] [place] [address]- 2766 May, [facility] [place] [facility] [address] [id number] [place] [address]- 1828 30 Apr, 2011 [facility] [place] [facility] [address] [id number] [place] [address]- 0972 16 Apr, 2011 [facility] [place] [facility] [address] [id number] [place] [address]- 9126 05 Apr, 2011 [facility] [place] [facility] [address] [id number] [place] [address]- 3086 17 Mar, 2011 [facility] [place] [facility] [address] [id number] [place] [address]- 9796 Mar, [facility] [place] [facility] [address] [id number] [place] [address]- 3606 31 Feb, 2011 [facility] [place] [facility] [address] [id number] [place] [address]- 8416 26 Feb, 2011 [facility] [place] [facility] [address] [id number] [place] [address]- 6058 Feb, [facility] [place] [facility] [address] [id number] [place] [address]- 1998 20 Feb, 2011 [facility] [place] [facility] [address] [id number] [place] [address]- 2877 13 Feb, 2011 [facility] [place] [facility] [address] [id number] [place] [address]- 0644 28 Apr, 2010 [facility] [place] [facility] [address] [id number] [place] [address]- 7450 22 Apr, 2010 [facility] [place] [facility] [address] [facility] [id number] [place] [address]- 0331 16 Apr, 2010 [facility] [place] [facility] [address] [id number] [place] [address]- 2646 15 Apr, 2010 [facility] [place] [facility] [address] [id number] [place] [address] 2546 15 Apr, 2010 [facility] [place] [facility] [address] [id number] [place] [address]- 4908 Apr, [facility] [place] [facility] [address] [id number] [place] [address]86 24 Mar, 2010 [facility] [place] [facility] [address] [facility] [id number] [place] [address]- 8135 17 Mar, 2010 [facility] [place] [facility] [id number], [place] [address]- 9728 17 Mar, 2010 [facility] [id number], [place] [address]- 4392 28 Feb, 2010 [facility] [id number], [place] [address]- 9445 Feb, [facility] [id number] [place] [address]- 3553 Feb, [facility] [id number], [place] [address]- 4422 Feb, [facility] [id number] [place] [address]- 9107 Dec, [facility] [id number] [place] [address]- 7984 Dec, [facility] [id number] [place] [address]- 4094 Oct, [facility] [id number], [place] [address]- 1356 Mar, [facility] [id number], [place] [address]- 5452 Mar, [facility] [id number], [place] [address]- 7808 September, IMMUNIZATIONS No Known Immunizations SOCIAL HISTORY Never Assessed REASON FOR VISIT triage PLAN OF CARE VITAL SIGNS MEDICATIONS Unknown [...]
--- OUTSIDE RECORDS SUMMARY | 2018-02-12 21:31 | XMS REPORT ---
Author Author RAVINDRA ROB [facility] Address [address] [place] [address] Care Team Providers Care Loan Secretary Name Role Phone RAVIERNIEHARLEEN RAVINDRA Unavailable PROBLEMS Type Condition ICD9-CM Code [id number] Code Onset Dates Condition Status SNOMED Code Problem Generalized anxiety disorder F41.1 Active 46524621 Problem Hypokalemia E87.6 Active 870933095 Problem Right low back pain, with sciatica presence unspecified M54.5 Active 813557857 Problem Pain in right knee M25.561 Active 31321372 Problem Gastroesophageal reflux disease without esophagitis K21.9 Active 273612180 Problem UTI symptoms R39.9 Active 88649443 Problem Essential hypertension I10 Active 60100204 Problem Right foot pain M79.671 Active 71225464 Problem Neuropathy G62.9 Active 590942232 Problem Other emphysema J43.8 Active 21582387 Problem Anxiety F41.9 Active 57662135 Problem Opioid use disorder, moderate, dependence F11.20 Active 99075812 Problem Other chronic pain G89.29 Active 73595592 Problem Bone pain M89.8X9 Active 81664118 Problem Chronic pain G89.29 Active 94385741 Problem Back pain M54.9 Active 996914184 Problem Kidney stones N20.0 Active 04379479 Problem Panic attacks F41.0 Active 476093447 Problem Generalized abdominal pain R10.84 Active 660503140 Problem Renal calculus, right N20.0 Active 60698492 Problem Tobacco abuse Z72.0 Active 34576055 Problem Right upper quadrant abdominal pain R10.11 Active 761432933 Problem Depression, unspecified depression type F32.9 Active 33852571 Problem Weight decrease R63.4 Active 094570830 Problem Pulmonary emphysema, unspecified emphysema type J43.9 Active 02857912 Problem Post-traumatic stress disorder, chronic F43.12 Active 60344948 Problem Weight loss R63.4 Active 721545500 Problem Insomnia, unspecified type G47.00 Active 450859226 ALLERGIES No Information ENCOUNTERS Encounter Location Date Diagnosis [facility] [id number] [place] [address] 41877- 9840 14 Dec, 2017 [facility] [id number] [place] [address] 15946- 8443 13 Dec, 2017 [place] [id number] [place] [address] 96334- 7811 Dec, Medicare welcome exam Z00.00 [facility] [facility] [id number] [place] [address] 65544- 4018 17 Nov, 2017 Opioid use disorder, moderate, dependence F11.20 [facility] [place] [id number] [place] [address] 87079- 7708 16 Nov, 2017 Pelvic pain R10.2 ; Acute pyelonephritis N10 and Essential hypertension I10 [place] [id number] [place] [address] 25842- 9263 28 Oct, 2017 Medicare welcome exam Z00.00 [place] [id number] [place] [address] 72351- 1845 18 Oct, 2017 Gross hematuria R31.0 ; Urinary tract infection without hematuria, site unspecified N39.0 and Weakness R53.1 [place] [id number] [place] [address] 99722- 1235 13 Oct, 2017 [place] [place] [id number] [place] [address] 28939- 6565 Oct, [facility] [place] [id number] [place] [address] 99309- 0577 Oct, Medicare welcome exam Z00.00 [place] [id number] [place] [address] 41579- 4493 September, Back pain M54.9 and Right anterior knee pain M25.561 [place] [id number] [place] [address] 94638- 3668 September, [facility] [address] [address] 0756 September, [facility] [id number] [place] [address] 39872- 9812 September, Essential hypertension I10 [facility] [id number] [place] [address] 15124- 3723 September, [facility] [id number] [place] [address] 81679- 6966 September, RLQ abdominal pain R10.31 ; Low back pain M54.5 and Other chronic pain G89.29 [facility] [id number] [place] [address] 82050- 9626 Aug, Medicare welcome exam Z00.00 [facility] [id number] [place] [address] 12275- 4972 Aug, [facility] [id number] [place] [address] 45841- 2779 Aug, Acute pyelonephritis N10 and Medicare welcome exam Z00.00 [facility] [id number] [place] [address] 22404 -0170 Aug, Dysuria R30.0 and Acute pyelonephritis N10 [facility] [address] [address] 0004 Aug, [facility] [address] [address] 2001 Aug, [facility] [id number] [place] [address] 79145- 3025 Aug, [facility] [id number] [place] [address] 04149- 4772 Aug, [facility] [address] [address]- 7632 Jul, [facility] [id number] [place] [address] 41201- 0274 Jul, Renal calculus, right N20.0 and Medicare welcome exam Z00.00 [facility] [id number] [place] [address] 05744 -3879 Jul, Dysuria R30.0 and Renal calculus, right N20.0 [place] [address] 12261- 3696 Jul, Medicare welcome exam Z00.00 [place] [id number] [place] [address] 12148- 6015 Jun, Gastroesophageal reflux disease without esophagitis K21.9 and Generalized abdominal pain R10.84 [place] [id number] [place] [address] 70404- 3629 Jun, Medicare welcome exam Z00.00 [place] [id number] [place] [address] 49181- 6969 Jun, [facility] [place] [id number] [place] [address] 58669- 4056 Jun, Medicare welcome exam Z00.00 and Encounter for screening mammogram for malignant neoplasm of breast Z12.31 [place] [id number] [place] [address] 83024- 1329 Jun, Chronic pain G89.29 [place] [id number] [place] [address] 93368- 7246 May, [facility] [id number] [place] [address] 16199- 5237 May, Pelvic pain R10.2 [place] [id number] [place] [address] 95864- 5854 May, Pelvic pain R10.2 [facility] [id number] [place] [address] 91665 -5952 May, Renal calculus, right N20.0 [facility] [id number] [place] [address] 52592- 6563 May, Hematuria, unspecified type R31.9 and Nephrolithiasis N20.0 [facility] [id number] [place] [address] 39328 -8588 May, Dysuria R30.0 and Nephrolithiasis N20.0 [place] [id number] [place] [address] 89227- 8854 May, [facility] [id number] [place] [address] 90997 -5995 May, Abdominal pain R10.9 and Kidney stone N20.0 [place] [id number] [place] [address] 34279- 2143 May, [place] [id number] [place] [address] 50714- 5591 May, Chronic pain G89.29 and Panic attacks F41.0 [place] [id number] [place] [address] 30950- 4114 May, Urinary tract infection without hematuria, site unspecified N39.0 [place] [id number] [place] [address] 84939- 2428 Apr, Right lower quadrant abdominal pain R10.31 and Abnormal serum lipase level R74.8 [place] [id number] [place] [address] 36314- 8670 Apr, Recurrent urinary tract infection N39.0 [place] [id number] [place] [address] 63745- 5802 Apr, UTI symptoms R39.9 ; Recurrent urinary tract infection N39.0 and Pelvic pain R10.2 [place] [address] [place] [address] 80790- 9059 Apr, Chronic pain G89.29 and Panic attacks F41.0 [place] [address] [place] [address]- 6152 Apr, Dysuria R30.0 [facility] [id number] [place] [address] 70929- 8534 Apr, [facility] [id number] [place] [address] 44775- 3668 Apr, Dysuria R30.0 and Urinary tract infection without hematuria , site unspecified N39.0 [facility] [id number] [place] [address] 57125- 7687 Mar, UTI symptoms R39.9 [place] [address] 15288- 4178 Mar, [place] [id number] [place] [address] 09388- 0699 Mar, Panic attacks F41.0 and Chronic pain G89.29 [place] [address] 87739- 2738 Mar, [place] [place] [id number] [place] [address] 19077- 0244 Mar, Dysuria R30.0 [place] [id number] [place] [address] 61390- 3399 Mar, Dysuria R30.0 [place] [id number] [place] [address] 31180- 3049 Feb, Chronic pain G89.29 ; Shortness of breath R06.02 ; Weight loss R63.4 ; Encounter for immunization Z23 ; Bone pain M89.8X9 ; Right anterior knee pain M25.561 and Cough R05 [place] [id number] [place] [address] 53846- 5118 Feb, Shortness of breath R06.02 [place] [id number] [place] [address] 34730- 7541 Feb, [facility] [address] 70136- 0054 Feb, Panic attacks F41.0 and Chronic pain G89.29 [place] [address] 68041- 3974 Feb, [place] [address] 22577- 3857 Feb, Panic attacks F41.0 ; Shortness of breath R06.02 and Encounter for immunization Z23 [place] [address] 69007- 1271 Jan, [place] [address] 35727- 4263 Jan, Anxiety F41.9 and Chronic pain G89.29 [place] [address] 74531- 1101 Dec, Anxiety F41.9 and Chronic pain G89.29 [place] [address] 86049- 8489 Nov, Chronic pain G89.29 [place] [address] 89570- 8085 Nov, Anxiety F41.9 [place] [address] 91141- 4279 Nov, Chronic pain G89.29 ; Essential hypertension I10 and Other emphysema J43.8 [place] [address] 17569- 3988 Oct, Anxiety F41.9 [place] [address] 12099- 2806 Oct, [place] [address] 67950- 3293 Oct, Chronic pain G89.29 [place] [address] 48939- 2224 September, Recurrent UTI N39.0 ; Neuropathy G62.9 and Anxiety F41.9 [facility] [id number] [place] [address] 13288- 5306 September, [facility] [id number] [place] [address] 89203- 9085 September, Chronic pain G89.29 [facility] [id number] [place] [address] 52593- 0559 September, [facility] [id number] [place] [address] 49771- 4290 Aug, Post-traumatic stress disorder, chronic F43.12 ; Chronic urinary tract infection N39.0 ; Gastroesophageal reflux disease without esophagitis K21.9 ; Chronic pain G89.29 ; Essential hypertension I10 and Tobacco abuse Z72.0 [facility] [id number] [place] [address] 41324 -3703 Aug, [facility] [id number] [place] [address] 98320- 0690 Aug, Chronic pain G89.29 [facility] [id number] [place] [address] 95011- 7684 Aug, Insomnia, unspecified type G47.00 [facility] [id number] [place] [address] 56582- 1478 Aug, [facility] [id number] [place] [address] 59354- 7619 Jul, Chronic pain G89.29 [facility] [id number] [place] [address] 06721- 4612 Jul, [facility] [id number] [place] [address] 74554- 7096 Jul, [facility] [id number] [place] [address] 54303- 1464 Jul, [facility] [id number] [place] [address] 09860- 8650 15 Jul, 2016 Recurrent UTI (urinary tract infection) N39.0 [facility] [id number] [place] [address] 32861- 7470 14 Jul, 2016 [facility] [id number] [place] [address] 30815- 5163 Jun, Chronic pain G89.29 [facility] [id number] [place] [address] 79271- 8634 17 Jun, 2016 [facility] [id number] [place] [address] 14759- 7947 Jun, [facility] [id number] [place] [address] 58082- 3507 May, Chronic pain G89.29 [facility] [id number] [place] [address] 00303- 0745 May, Weight loss R63.4 and Shortness of breath R06.02 [facility] [id number] [place] [address] 02771- 5289 May, Chronic pain G89.29 ; Weight loss R63.4 and Tobacco abuse Z72.0 [facility] [address] [address] 1979 May, [facility] [id number] [place] [address] 77483- 8946 May, Hypoxia R09.02 [facility] [address] [address]- 4146 May, [facility] [id number] [place] [address] 87485- 9799 May, Pulmonary emphysema, unspecified emphysema type J43.9 [facility] [address] [address] -8849 May, [facility] [id number] [place] [address] 14126- 7648 May, [facility] [id number] [place] [address] 37277- 2927 May, [facility] [id number] [place] [address] 64811- 6534 May, Chronic pain G89.29 ; Encounter for immunization Z23 ; Right anterior knee pain M25.561 and Cough R05 [facility] [address] 70866- 8470 Apr, Chronic pain G89.29 [facility] [address] 16476- 0959 Apr, [facility] [address] 35473- 3704 Apr, Generalized anxiety disorder F41.1 and Depression, unspecified depression type F32.9 [facility] [id number] [place] [address] 41615- 4580 Apr, Chronic pain G89.29 ; Hypokalemia E87.6 and Insomnia, unspecified type G47.00 [facility] [id number] [place] [address] 62115- 6468 Apr, [facility] [id number] [place] [address] 56324- 0959 Apr, Chronic pain G89.29 [facility] [id number] [place] [address] 21935- 9153 Apr, [facility] [id number] [place] [address] 77600- 9974 Mar, [facility] [id number] [place] [address] 33268- 4460 Mar, Insomnia, unspecified type G47.00 [facility] [id number] [place] [address] 94748- 2778 Mar, Chronic pain G89.29 [facility] [address] [place] [address]- 2157 Mar, [facility] [address] [address]- 6049 Feb, [facility] [address] [address]- 9647 Feb, [facility] [address] [address]- 4572 Feb, [facility] [address] [address]- 4909 Feb, [facility] [id number] [place] [address] 23696- 7085 Feb, [facility] [address] [address]- 7537 29 Jan, 2016 [facility] [address] [address]- 9167 26 Jan, 2015 [facility] [address] [address]- 6442 20 Jan, 2015 [facility] [address] [address]- 5338 13 Jan, 2015 [facility] [address] [address]- 6277 12 Jan, 2016 [facility] [address] [address]- 0280 07 Jan, 2015 Chronic pain G89.29 [facility] [address] [address]- 8498 Jan, 2015 Chronic pain G89.29 and Fibromyalgia M79.7 [facility] [address] [address]- 8303 Dec, Depression, unspecified depression type F32.9 and Generalized anxiety disorder 300.02 [facility] [address] [address]- 0146 Dec, Dysthymia F34.1 ; Insomnia, unspecified type G47.00 and Chronic pain G89.29 [facility] [id number] [place] [address] 80106- 9794 Dec, Chronic pain G89.29 [facility] [id number] [place] [address] 58194- 0822 Dec, Insomnia, unspecified type G47.00 [facility] [id number] [place] [address] 17933- 4591 Dec, Fibromyalgia M79.7 and Chronic pain G89.29 [facility] [id number] [place] [address] 84730- 6392 Dec, [facility] [id number] [place] [address] 18219- 1442 Dec, [facility] [id number] [place] [address] 29009- 7805 Dec, [facility] [id number] [place] [address] 91976- 1949 Dec, [facility] [id number] [place] [address] 96655- 6841 Dec, Chronic pain G89.29 [facility] [id number] [place] [address] 52685- 5702 Dec, [facility] [id number] [place] [address] 05448- 7979 Dec, [facility] [id number] [place] [address] 84404 2543 Dec, [facility] [id number] [place] [address] 44481- 7493 Dec, Chronic pain G89.29 and Dysthymia F34.1 [facility] [id number] [place] [address] 57762- 4619 Nov, [facility] [address] [place] [address]- 8221 Nov, Hypokalemia E87.6 and Chronic pain G89.29 [facility] [id number] [place] [address] 43311- 4192 Nov, Back pain M54.9 and Pain in right knee M25.561 [facility] [address] 38839- 2131 Nov, [facility] [id number] [place] [address] 34691- 6570 Nov, Chronic pain G89.29 [place] [address] 70418- 7994 Nov, Chronic pain G89.29 ; Weight loss R63.4 ; Bone pain M89.8X9 and Insomnia, unspecified type G47.00 [facility] [id number] [place] [address] 83081- 0269 Nov, Chronic pain G89.29 [facility] [id number] [place] [address] 55209- 0253 Nov, Chronic pain G89.29 [facility] [place] [id number] [place] [address] 71029- 8200 Oct, Chronic pain G89.29 [facility] [place] [id number] [place] [address] 41168- 5032 Oct, UTI symptoms R39.9 [facility] [id number] [place] [address] 95188- 4680 27 Oct, 2015 Chronic pain G89.29 [place] [address] 37925- 9708 20 Oct, 2015 Chronic pain G89.29 [facility] [id number] [place] [address] 68979- 0529 13 Oct, 2015 Chronic pain G89.29 [facility] [id number] [place] [address] 72226- 7336 Oct, Right upper quadrant abdominal pain R10.11 [facility] [id number] [place] [address] 22400- 9034 Oct, Chronic pain G89.29 [facility] [id number] [place] [address] 41816- 2371 Oct, [facility] [id number] [place] [address] 01765- 5718 September, Chronic pain G89.29 [facility] [id number] [place] [address] 82820- 9705 September, Dysuria R30.0 and Urinary tract infection without hematuria , site unspecified N39.0 [facility] [id number] [place] [address] 50201- 8496 September, [facility] [id number] [place] [address] 90250- 8933 September, Dysuria R30.0 [facility] [id number] [place] [address] 90103- 3411 September, Chronic pain G89.29 [facility] [id number] [place] [address] 46560- 5395 September, Chronic pain G89.29 and Essential hypertension I10 [facility] [id number] [address] September, [facility] [id number] [place] [address] 82127- 3979 September, [facility] [id number] [place] [address] 35652- 4362 September, [facility] [id number] [place] [address] 44716- 0750 Aug, UTI symptoms R39.9 [facility] [id number] [place] [address] 58034- 0175 Aug, Dysuria R30.0 [facility] [id number] [address] Aug, [facility] [id number] [place] [address] 25459- 0551 Aug, [facility] [id number] [place] [address] 35429- 8619 Aug, [facility] [id number] [place] [address] 05065- 7658 Aug, Chronic pain G89.29 [facility] [id number] [place] [address] [phone]- 1066 Aug, Dysthymia F34.1 [facility] [id number] [place] [address] 70137- 2029 Aug, Conjunctivitis, unspecified conjunctivitis type, unspecified laterality H10.9 [facility] [id number] [place] [address] 62529- 7294 Jul, Chronic pain G89.29 ; Back pain M54.9 ; Tobacco abuse Z72.0 and Weight decrease R63.4 [facility] [id number] [place] [address] 27399- 8137 Jul, [facility] [id number] [place] [address] 78686- 3036 Jul, [facility] [id number] [place] [address] 64457- 7382 24 Jul, 2015 Chronic pain G89.29 [facility] [id number] [place] [address] 56594- 3605 Jul, [facility] [id number] [place] [address] 16643- 3557 Jul, [facility] [id number] [place] [address] 46230- 6870 Jul, [facility] [id number] [address] 0732 17 Jul, 2015 [facility] [id number] [place] [address] 23753- 0647 17 Jul, 2015 Chronic pain G89.29 [facility] [id number] [place] [address] 92223- 5163 16 Jul, 2015 Chronic pain G89.29 [facility] [id number] [place] [address] 21958- 5918 15 Jul, 2015 [facility] [id number] [place] [address] 39977- 0937 Jul, [facility] [id number] [place] [address] 43191- 2963 Jul, [facility] [id number] [place] [address] 31181- 3798 Jul, [facility] [id number] [place] [address] 34939- 5502 Jun, [facility] [id number] [place] [address] 38628- 4771 Jun, Depression, unspecified depression type F32.9 [facility] [id number] [place] [address] 28670- 1305 Jun, Pain in right knee M25.561 [facility] [id number] [place] [address] 04286- 0374 24 Jun, 2015 Chronic pain G89.29 ; Back pain M54.9 ; Bone pain M89.8X9 and Weight loss R63.4 [facility] [id number] [place] [address] 42412- 0735 Jun, [facility] [id number] [place] [address] 58780- 4364 May, [facility] [id number] [place] [address] 64224- 4556 11 Jack, 2016 UTI symptoms R39.9 ; Pain in right knee M25.561 ; Right low back pain, with sciatica presence unspecified M54.5 ; Right foot pain M79.671 ; Hypokalemia E87.6 and Screening, lipid Z13.220 [facility] [id number] [place] [address] 31228- 6268 May, [facility] [address] 33132- 8777 May, [facility] [address] 88473- 1703 Mar, [facility] [address] 56162- 4933 Mar, [facility] [address] 41002- 7609 Mar, Hypokalemia E87.6 [facility] [address] 14679- 6120 Mar, Pain in right leg M79.604 ; Encounter for immunization Z23 ; Pain in right knee M25.561 and Hypokalemia E87.6 [facility] [address] 42854- 4035 Jan, [facility] [id number] [place] [address] 49251- 0747 Jan, [facility] [id number] [place] [address] 00328- 2549 Jan, Abdominal pain, generalized 789.07 [facility] [address] 95421- 0650 Jan, Abdominal pain, generalized 789.07 [facility] [id number] [place] [address] 75780- 0410 Dec, [facility] [id number] [place] [address] 45182- 5583 Dec, [facility] [address] [address]- 7530 Dec, [facility] [address] [address]- 8585 Nov, Hallux valgus 735.0 and Hammertoe 735.4 [facility] [address] [address]- 0296 Nov, [facility] [address] [address]- 4424 Nov, Hallux valgus 735.0 and Hammer toe 735.4 [facility] [id number] [place] [address] 74413- 2206 Oct, [facility] [address] [address]- 8891 Oct, [facility] [id number] [place] [address] 68801- 4777 Oct, Pre-op evaluation V72.84 [facility] [address] [address]- 3595 Oct, [facility] [address] [address]- 5838 Oct, [facility] [address] [address]- 0999 September, [facility] [address] [address]- 9782 September, [facility] [id number] [address] 1889 September, Hallux valgus (acquired) 735.0 and Other hammer toe ( acquired) 735.4 [facility] [id number] [address]- 2546 Aug, [facility] [address] [address]- 1908 Aug, [facility] [place] [facility] [address] [id number] [place] [address]- 0115 Jul, [facility] [place] [facility] [address] [id number] [place] [address]- 2401 Jul, [facility] [place] [facility] [address] [id number] [place] [address]- 0112 Jul, [facility] [place] [facility] [address] [id number] [place] [address]- 9936 Jul, [facility] [place] [facility] [address] [id number] [place] [address]- 1087 Jul, [facility] [place] [facility] [address] [id number] [place] [address]- 2130 Jul, [facility] [place] [facility] [address] [facility] [id number] [place] [address]- 5825 Jul, [facility] [place] [facility] [address] [id number] [place] [address]- 1692 Jul, [facility] [place] [facility] [address] [id number] [place] [address]- 4910 Jun, [facility] [place] [facility] [address] [id number] [place] [address]- 0237 Jun, [facility] [place] [facility] [address] [id number] [address]- 1624 Jun, 2014 [facility] [place] [facility] [address] [id number] [address]- 4147 Jun, 2014 [facility] [place] [facility] [address] [id number] [place] [address]- 8349 Jun, [facility] [place] [facility] [address] [id number] [place] [address]- 4783 Jun, [facility] [place] [facility] [address] [facility] [id number] [place] [address]- 5871 Jun, [facility] [place] [facility] [address] [id number] [place] [address]- 1415 Jun, [facility] [place] [facility] [address] [id number] [place] [address]- 9935 Jun, [facility] [place] [facility] [address] [id number] [place] [address]- 9846 Jun, [facility] [place] [facility] [address] [id number] [place] [address]- 2859 May, [facility] [place] [facility] [address] [id number] [place] [address]- 1898 May, [facility] [place] [facility] [address] [id number] [place] [address]- 7046 May, [facility] [place] [facility] [address] [id number] [place] [address]- 1586 May, [facility] [place] [facility] [address] [id number] [place] [address]- 6945 May, [facility] [place] [facility] [address] [id number] [place] [address]- 5359 May, [facility] [place] [facility] [address] [id number] [place] [address]- 0341 May, [facility] [place] [facility] [address] [id number] [place] [address]- 5146 May, [facility] [place] [facility] [address] [id number] [place] [address]- 1682 May, [facility] [place] [facility] [address] [id number] [place] [address]- 1435 May, [facility] [place] [facility] [address] [id number] [place] [address]- 2645 May, [facility] [place] [facility] [address] [id number] [place] [address]- 0176 May, [facility] [place] [facility] [address] [id number] [place] [address]- 1049 May, [facility] [place] [facility] [address] [id number] [place] [address]- 0489 May, [facility] [place] [facility] [address] [id number] [place] [address]- 8602 May, [facility] [place] [facility] [address] [id number] [place] [address]- 5508 May, [facility] [place] [facility] [address] [id number] [place] [address]- 6030 May, [facility] [place] [facility] [address] [id number] [place] [address]- 3262 May, [facility] [place] [facility] [address] [id number] [place] [address]- 4119 Apr, [facility] [place] [facility] [address] [id number] [place] [address]- 2334 Apr, [facility] [place] [facility] [address] [id number] [place] [address]- 5224 Apr, [facility] [place] [facility] [address] [id number] [place] [address]- 5384 Apr, [facility] [place] [facility] [address] [id number] [place] [address]- 5828 Apr, [facility] [place] [facility] [address] [id number] [address]- 6610 Apr, [facility] [place] [facility] [address] [id number] [address]- 2004 Apr, [facility] [place] [facility] [address] [id number] [place] [address]- 8431 Apr, [facility] [place] [facility] [address] [id number] [place] [address]- 6533 Apr, [facility] [place] [facility] [address] [id number] [place] [address]- 0714 Mar, [facility] [place] [facility] [address] [id number] [place] 4084 Mar, [facility] [place] [facility] [address] [id number] [place] [address]- 0110 Mar, [facility] [place] [facility] [address] [id number] [place] [address]- 6542 Mar, [facility] [place] [facility] [address] [id number] [place] [address]- 8449 Mar, [facility] [place] [facility] [address] [id number] [place] [address]- 4736 Feb, [facility] [place] [facility] [address] [id number] [place] [address]- 5591 Feb, [facility] [place] [facility] [address] [id number] [place] [address]- 7037 Feb, [facility] [place] [facility] [address] [id number] [place] [address]- 6298 Feb, [facility] [place] [facility] [address] [id number] [place] [address]- 1400 Feb, [facility] [place] [facility] [address] [id number] [place] [address]- 0442 Feb, [facility] [place] [facility] [address] [facility] [id number] [place] [address]- 6002 Feb, [facility] [place] [facility] [address] [id number] [place] [address]- 3788 Feb, [facility] [place] [facility] [address] [id number] [address]- 8150 Feb, [facility] [place] [facility] [address] [id number] [place] 3218 Feb, [facility] [place] [facility] [address] [id number] [place] [address]- 9776 Feb, [facility] [place] [facility] [address] [id number] [place] 1801 Feb, [facility] [place] [facility] [address] [id number] [place] [address]- 6281 Feb, [facility] [place] [facility] [address] [id number] [place] [address]- 3852 Feb, [facility] [place] [facility] [address] [id number] [place] [address]- 6388 Feb, [facility] [place] [facility] [address] [id number] [place] [address]- 8801 Feb, [facility] [place] [facility] [address] [id number] [place] [address]- 9450 Jan, [facility] [place] [facility] [address] [id number] [place] [address]- 0432 Jan, [facility] [place] [facility] [address] [id number] [place] [address]- 9881 20 Jan, 2014 [facility] [place] [facility] [address] [id number] [place] [address]- 8353 19 Jan, 2014 [facility] [place] [facility] [address] [id number] [place] [address]- 3612 Jan, [facility] [place] [facility] [address] [id number] [place] [address]- 0462 Jan, [facility] [place] [facility] [address] [id number] [place] [address]- 6975 Jan, [facility] [place] [facility] [address] [id number] [place] [address]- 2845 Jan, [facility] [place] [facility] [address] [id number] [place] [address]- 6158 Dec, [facility] [place] [facility] [address] [id number] [place] [address]- 3250 Dec, [facility] [place] [facility] [address] [id number] [place] [address]- 6559 Nov, [facility] [place] [facility] [address] [id number] [place] [address]- 2546 Nov, [facility] [place] [facility] [address] [id number] [place] [address]- 4368 Nov, [facility] [place] [facility] [address] [id number] [place] [address]- 5513 Nov, [facility] [place] [facility] [address] [id number] [place] [address]- 3188 Nov, [facility] [place] [facility] [address] [id number] [place] [address]- 6361 Nov, [facility] [place] [facility] [address] [id number] [place] [address]- 3020 Nov, [facility] [place] [facility] [address] [id number] [place] [address]- 1347 Nov, [facility] [place] [facility] [address] [id number] [place] [address]- 9422 Nov, [facility] [place] [facility] [address] [id number] [place] [address]- 5150 Oct, [facility] [place] [facility] [address] [id number] [place] [address]- 8632 Oct, [facility] [place] [facility] [address] [id number] [place] [address]- 3488 Oct, [facility] [place] [facility] [address] [id number] [place] [address]- 1230 Oct, [facility] [place] [facility] [address] [id number] [place] [address]- 1787 Oct, [facility] [place] [facility] [address] [id number] [place] [address]- 6534 Oct, [facility] [place] [facility] [address] [id number] [place] [address]- 2215 September, [facility] [place] [facility] [address] [id number] [place] [address]- 9214 September, [facility] [place] [facility] [address] [id number] [place] [address]- 4052 September, [facility] [address] [id number] [place] [address]- 6211 September, [facility] [address] [id number] [place] [address]- 2165 September, [facility] [address] [id number] [place] [address]- 9569 September, [facility] [address] [id number] [place] [address]- 7293 September, [facility] [address] [id number] [place] [address]- 2098 September, [facility] [address] [id number] [place] [address]- 0306 September, [facility] [address] [id number] [place] [address]- 2550 September, [facility] [address] [id number] [place] [address]- 2762 September, [facility] [address] [id number] [place] [address]- 0901 September, [facility] [address] [id number] [place] [address]- 4993 September, [facility] [address] [id number] [place] [address]- 3987 September, [facility] [address] [id number] [place] [address]- 9106 September, [facility] [address] [id number] [place] [address]- 2732 September, [facility] [address] [id number] [place] [address]- 9696 September, [facility] [address] [id number] [place] 8718 September, [facility] [place] [facility] [address] [id number] [place] [address]- 7641 September, [facility] [place] [facility] [address] [id number] [place] [address]- 3306 September, [facility] [place] [facility] [address] [id number] [place] [address]- 2432 Aug, [facility] [place] [facility] [address] [id number] [place] [address]- 2379 Aug, [facility] [place] [facility] [address] [id number] [place] [address]- 7206 Aug, [facility] [place] [facility] [address] [id number] [place] [address]- 1700 Aug, [facility] [place] [facility] [address] [id number] [place] [address]- 6168 Aug, [facility] [place] [facility] [address] [id number] [place] [address]- 7237 Aug, [facility] [place] [facility] [address] [id number] [place] [address]- 8700 Aug, [facility] [place] [facility] [address] [id number] [place] [address]- 0348 Aug, [facility] [place] [facility] [address] [id number] [place] [address]- 2603 Aug, [facility] [place] [facility] [address] [id number] [place] [address]- 8767 Aug, [facility] [place] [facility] [address] [id number] [place] [address]- 5680 Aug, [facility] [place] [facility] [address] [id number] [place] [address]- 0686 Aug, [facility] [place] [facility] [address] [id number] [place] [address]- 1666 Aug, [facility] [place] [facility] [address] [id number] [address]- 5319 Aug, [facility] [place] [facility] [address] [id number] [place] [address]- 0500 Aug, [facility] [place] [facility] [address] [id number] [place] [address]- 2966 Jul, [facility] [place] [facility] [address] [id number] [place] [address]- 3312 Jul, [facility] [place] [facility] [address] [id number] [place] [address]- 9164 Jul, [facility] [place] [facility] [address] [id number] [place] [address]- 2877 27 Jul, 2013 [facility] [place] [facility] [address] [id number] [place] [address]- 5789 Jul, [facility] [place] [facility] [address] [id number] [place] [address]- 0526 Jul, [facility] [place] [facility] [address] [id number] [place] [address]- 4304 Jul, [facility] [place] [facility] [address] [id number] [place] [address]- 1382 18 Jul, 2013 [facility] [place] [facility] [address] [facility] [id number] [place] [address]- 0684 Jul, [facility] [place] [facility] [address] [id number] [place] [address]- 3876 Jul, [facility] [place] [facility] [address] [id number] [place] [address]- 9578 Jul, [facility] [place] [facility] [address] [id number] [place] [address]- 8556 04 Jul, 2013 [facility] [place] [facility] [address] [id number] [place] [address]- 1024 Jul, [facility] [place] [facility] [address] [id number] [place] [address]- 0187 Jul, [facility] [place] [facility] [address] [id number] [place] [address] Jul, [facility] [place] [facility] [address] [id number] [place] [address] Jun, [facility] [place] [facility] [address] [id number] [place] [address] Jun, [facility] [place] [facility] [address] [id number] [place] [address] Jun, [facility] [place] [facility] [address] [id number] [place] [address] Jun, [facility] [place] [facility] [address] [id number] [place] [address] Jun, [facility] [place] [facility] [address] [id number] [place] [address] Jun, [facility] [place] [facility] [address] [id number] [place] [address] May, [facility] [place] [facility] [address] [id number] [place] [address] May, [facility] [place] [facility] [address] [id number] [place] [address] May, [facility] [place] [facility] [address] [id number] [place] [address] 97[address] May, [facility] [place] [facility] [address] [id number] [place] [address] May, [facility] [place] [facility] [address] [id number] [place] [address] May, [facility] [place] [facility] [address] [id number] [place] [address] May, [facility] [place] [facility] [address] [id number] [place] [address]- [address] May, [facility] [place] [facility] [address] [id number] [place] [address] 7964 May, [facility] [address] [id number] [place] [address] May, [facility] [place] [facility] [address] [id number] [place] [address]- [address] May, [facility] [place] [facility] [address] [id number] [place] [address]- 118[address] May, [facility] [place] [facility] [address] [id number] [place] [address] May, [facility] [place] [facility] [address] [id number] [place] [address] May, [facility] [place] [facility] [address] [id number] [place] [address]- 1473 May, [facility] [place] [facility] [address] [id number] [place] [address] Apr, [facility] [place] [facility] [address] [id number] [place] [address] Apr, [facility] [place] [facility] [address] [id number] [place] [address] 2510 Apr, [facility] [place] [facility] [address] [id number] [place] [address]- [address] Apr, [facility] [place] [facility] [address] [id number] [place] [address] Apr, [facility] [place] [facility] [address] [id number] [place] [address] Apr, [facility] [place] [facility] [address] [id number] [place] [address] Apr, [facility] [place] [facility] [address] [id number] [place] [address] Apr, [facility] [place] [facility] [address] [id number] [place] [address] 9[address] Apr, [facility] [place] [facility] [address] [id number] [place] [address]158 Apr, [facility] [address] [id number] [place] [address] Mar, [facility] [place] [facility] [address] [id number] [place] [address] 6414 Mar, [facility] [address] [id number] [place] [address] Mar, [facility] [place] [facility] [address] [id number] [place] [address]160 Mar, [facility] [address] [id number] [place] [address] Mar, [facility] [place] [facility] [address] [id number] [place] [address]- [address] Mar, [facility] [place] [facility] [address] [id number] [place] [address]84 Mar, [facility] [address] [id number] [place] [address] 2768 Mar, [facility] [place] [facility] [address] [id number] [place] [address]- [address] Mar, [facility] [address] [id number] [place] [address]- [address] Mar, [facility] [place] [facility] [address] [id number] [place] [address] Mar, [facility] [place] [facility] [address] [id number] [place] [address] Mar, [facility] [place] [facility] [address] [id number] [place] [address]- 9936 Mar, [facility] [place] [facility] [address] [id number] [place] [address] 39[address] Mar, [facility] [place] [facility] [address] [id number] [place] [address]- 6076 Mar, [facility] [place] [facility] [address] [id number] [place] [address]- [address]28 18 Mar, 2013 [facility] [place] [facility] [address] [id number] [place] [address]- [address]555 Mar, [facility] [place] [facility] [address] [id number] [place] [address]- 4626 Mar, [facility] [place] [facility] [address] [id number] [place] [address]- 9087 Mar, [facility] [place] [facility] [address] [id number] [place] [address]- 8150 Mar, [facility] [place] [facility] [address] [id number] [place] [address]- 1019 Mar, [facility] [place] [facility] [address] [id number] [place] [address]- 36[address] Mar, [facility] [place] [facility] [address] [id number] [address] Mar, [facility] [place] [facility] [address] [id number] [place] [address]- 4737 Feb, [facility] [place] [facility] [address] [id number] [address] Feb, [facility] [place] [facility] [address] [address] [id number] [address] Feb, [facility] [place] [facility] [address] [id number] [address] Feb, [facility] [place] [facility] [address] [id number] [address] 113[address] 15 Feb, 2013 [facility] [place] [facility] [address] [id number] [address] 269[address] Feb, [facility] [place] [facility] [address] [id number] [address] Feb, [facility] [place] [facility] [address] [id number] [place] [address] 5939 07 Feb, 2013 [facility] [place] [facility] [address] [id number] [place] [address]- 6720 04 Feb, 2013 [facility] [place] [facility] [address] [id number] [place] [address]- 4032 03 Feb, 2013 [facility] [place] [facility] [address] [id number] [place] [address]- 6293 30 Jan, 2013 [facility] [place] [facility] [address] [id number] [place] [address]- 5689 26 Jan, 2013 [facility] [place] [facility] [address] [id number] [place] [address]- 4071 24 Jan, 2013 [facility] [place] [facility] [address] [id number] [place] [address]- 7253 23 Jan, 2013 [facility] [place] [facility] [address] [id number] [place] [address]- 6888 17 Jan, 2013 [facility] [place] [facility] [address] [id number] [place] [address]- 7481 Dec, [facility] [place] [facility] [address] [id number] [place] [address]- 3332 Dec, [facility] [place] [facility] [address] [id number] [place] [address]- 2719 16 Dec, 2012 [facility] [place] [facility] [address] [id number] [place] [address]- 5635 15 Dec, 2012 [facility] [place] [facility] [address] [id number] [place] [address]- 7451 14 Dec, 2012 [facility] [place] [facility] [address] [id number] [place] [address]- 7438 Dec, [facility] [place] [facility] [address] [id number] [place] [address]- 3999 Dec, [facility] [place] [facility] [address] [id number] [place] [address]- 3052 Nov, [facility] [place] [facility] [address] [id number] [place] [address]- 7725 16 Nov, 2012 [facility] [address] [id number] [place] [address]- 9474 Nov, [facility] [address] [id number] [place] [address]- 2546 05 Nov, 2012 [facility] [address] [id number] [place] [address]- 5322 Nov, [facility] [address] [id number] [place] [address]- 4021 Oct, [facility] [address] [id number] [place] [address]- 4821 Oct, [facility] [address] [id number] [place] [address]- 6715 Oct, [facility] [address] [id number] [place] [address]- 5206 September, [facility] [address] [id number] [place] [address]- 4105 September, [facility] [address] [id number] [place] [address]- 4545 September, [facility] [address] [id number] [place] [address]- 2102 September, [facility] [address] [id number] [place] [address]- 0292 September, [facility] [address] [id number] [place] [address]- 8369 September, [facility] [place] [facility] [address] [id number] [place] [address]- 6666 September, [facility] [place] [facility] [address] [id number] [place] [address]- 6323 Aug, [facility] [place] [facility] [address] [id number] [place] [address]- 5899 23 Aug, 2012 [facility] [address] [id number] [place] [address]- 5425 11 Aug, 2012 [facility] [address] [id number] [place] [address]- 7947 29 Jul, 2012 [facility] [address] [facility] [id number] [place] [address]- 9486 27 Jul, 2012 [facility] [address] [id number] [place] [address]- 9197 26 Jul, 2012 [facility] [address] [id number] [place] [address]- 1272 20 Jul, 2012 [facility] [address] [facility] [id number] [place] [address]- 1852 18 Jul, 2012 [facility] [address] [facility] [id number] [place] [address]- 5179 18 Jul, 2012 [facility] [place] [facility] [address] [facility] [id number] [place] [address]- 8187 13 Jul, 2012 [facility] [address] [facility] [id number] [place] [address]- 0811 28 Jun, 2012 [facility] [place] [facility] [address] [facility] [id number] [place] [address]- 5266 27 Jun, 2012 [facility] [address] [facility] [id number] [place] [address]- 8267 22 Jun, 2012 [facility] [place] [facility] [address] [facility] [id number] [place] [address]- 2926 20 Jun, 2012 [facility] [place] [facility] [address] [facility] [id number] [place] [address]- 4390 15 Jun, 2012 [facility] [place] [facility] [address] [facility] [id number] [place] [address]- 4778 15 Jun, 2012 [facility] [place] [facility] [address] [facility] [id number] [place] [address]- 0463 13 Jun, 2012 [facility] [place] [facility] [address] [id number] [place] [address]- 2966 Jun, [facility] [address] [id number] [place] [address]- 6175 Jun, [facility] [place] [facility] [address] [id number] [place] [address]- 2546 Jun, [facility] [address] [id number] [place] [address]- 7876 May, [facility] [address] [id number] [place] [address]- 9881 May, [facility] [address] [id number] [place] [address]- 1944 May, [facility] [address] [id number] [place] [address]- 8265 May, [facility] [address] [id number] [place] [address]- 9223 May, [facility] [address] [id number] [place] [address]- 6334 May, [facility] [address] [id number] [place] [address]- 6244 Apr, [facility] [address] [id number] [place] [address]- 8614 31 Apr, 2012 [facility] [address] [id number] [place] [address]- 9378 Apr, [facility] [address] [id number] [place] [address]- 8724 Apr, [facility] [place] [facility] [address] [id number] [place] [address]- 8836 26 Apr, 2012 [facility] [place] [facility] [address] [id number] [place] [address]- 7174 20 Apr, 2012 [facility] [address] [id number] [place] [address]- 2783 Apr, [facility] [place] [facility] [address] [id number] [place] [address]- 0797 Mar, [facility] [place] [facility] [address] [id number] [place] [address]- 7636 29 Mar, 2012 [facility] [place] [facility] [address] [id number] [place] [address]- 6711 Mar, [facility] [place] [facility] [address] [id number] [place] [address]- 9247 Mar, [facility] [place] [facility] [address] [id number] [place] [address]- 6128 Mar, [facility] [place] [facility] [address] [id number] [place] [address]- 7949 Mar, [facility] [place] [facility] [address] [id number] [place] [address]- 5403 Mar, [facility] [place] [facility] [address] [id number] [place] [address]- 8820 Mar, [facility] [place] [facility] [address] [id number] [place] [address]- 1181 Mar, [facility] [place] [facility] [address] [id number] [place] [address]- 7266 Mar, [facility] [place] [facility] [address] [id number] [address]- 7182 Mar, [facility] [place] [facility] [address] [id number] [place] [address]- 2518 Mar, [facility] [place] [facility] [address] [id number] [place] [address]- 9291 Mar, [facility] [place] [facility] [address] [id number] [place] [address]- 8255 Mar, [facility] [place] [facility] [address] [id number] [place] [address]- 4745 Mar, [facility] [place] [facility] [address] [id number] [place] [address]- 2546 Mar, [facility] [place] [facility] [address] [id number] [place] [address]- 2478 Mar, [facility] [place] [facility] [address] [id number] [place] [address]- 1108 Feb, [facility] [place] [facility] [address] [id number] [place] [address]- 9825 Feb, [facility] [place] [facility] [address] [id number] [place] [address]- 1800 Feb, [facility] [place] [facility] [address] [id number] [place] [address]- 0762 Feb, [facility] [place] [facility] [address] [id number] [place] [address]- 7380 Feb, [facility] [place] [facility] [address] [id number] [place] [address]- 2522 Feb, [facility] [place] [facility] [address] [id number] [place] [address]- 7188 Feb, [facility] [place] [facility] [address] [id number] [place] [address]- 2670 Feb, [facility] [place] [facility] [address] [id number] [place] [address]- 7229 Feb, [facility] [place] [facility] [address] [id number] [place] [address]- 8933 Feb, [facility] [place] [facility] [address] [id number] [place] [address]- 8323 Feb, [facility] [place] [facility] [address] [id number] [place] [address]- 7366 27 Jan, 2012 [facility] [place] [facility] [address] [id number] [place] [address]- 4416 25 Jan, 2012 [facility] [place] [facility] [address] [id number] [place] [address]- 5829 13 Jan, 2012 [facility] [place] [facility] [address] [id number] [place] [address]- 6694 12 Jan, 2012 [facility] [place] [facility] [address] [id number] [place] [address]- 5251 Jan, [facility] [place] [facility] [address] [id number] [place] [address]- 7127 Dec, [facility] [place] [facility] [address] [id number] [place] [address]- 9950 Dec, [facility] [place] [facility] [address] [id number] [place] [address]- 9417 Dec, [facility] [place] [facility] [address] [id number] [place] [address]- 7567 Dec, [facility] [place] [facility] [address] [id number] [place] [address]- 2277 Dec, [facility] [place] [facility] [address] [id number] [place] [address]- 6104 Dec, [facility] [place] [facility] [address] [id number] [place] [address]- 1940 Dec, [facility] [place] [facility] [address] [id number] [place] [address]- 5031 Dec, [facility] [place] [facility] [address] [id number] [place] [address]- 1923 Nov, [facility] [place] [facility] [address] [id number] [place] [address]- 7160 Nov, [facility] [place] [facility] [address] [id number] [place] [address]- 9178 Nov, [facility] [place] [facility] [address] [id number] [place] [address]- 7499 Nov, [facility] [place] [facility] [address] [id number] [place] [address]- 9671 Nov, [facility] [place] [facility] [address] [id number] [place] [address]- 8903 Oct, [facility] [address] [id number] [place] [address]- 7516 Oct, [facility] [address] [id number] [place] [address]- 2332 September, [facility] [address] [id number] [place] [address]- 3526 September, [facility] [address] [id number] [place] [address]- 0077 September, [facility] [address] [id number] [place] [address]- 2929 September, [facility] [address] [id number] [place] [address]- 4279 September, [facility] [address] [id number] [place] [address]- 7151 September, [facility] [address] [id number] [place] [address]- 1844 September, [facility] [address] [id number] [place] [address]- 0322 September, [facility] [address] [id number] [place] [address]- 9588 September, [facility] [address] [id number] [place] [address]- 7022 September, [facility] [address] [id number] [place] [address]- 2716 September, [facility] [place] [facility] [address] [id number] [place] [address]- 9090 September, [facility] [address] [id number] [place] [address]- 1516 September, [facility] [address] [id number] [place] [address]- 8878 September, [facility] [place] [facility] [address] [id number] [place] [address]- 3388 24 Aug, 2011 [facility] [place] [facility] [address] [id number] [place] [address]- 0354 20 Aug, 2011 [facility] [place] [facility] [address] [id number] [place] [address]- 3956 13 Aug, 2011 [facility] [place] [facility] [address] [id number] [place] [address]- 8275 11 Aug, 2011 [facility] [place] [facility] [address] [id number] [place] [address]- 1425 23 Jul, 2011 [facility] [place] [facility] [address] [id number] [place] [address]- 1930 13 Jul, 2011 [facility] [place] [facility] [address] [id number] [place] [address]- 1007 13 Jul, 2011 [facility] [place] [facility] [address] [id number] [place] [address]- 0489 28 Jun, [address] [facility] [address] [id number] [id number] 26 Jun, 2011 [facility] [place] [facility] [id number] [place] [address]- 9694 13 Jun, 2011 [facility] [place] [facility] [address] [facility] [id number] [place] [address]- 1686 10 Jun, 2011 [facility] [place] [facility] [address] [id number] [place] [address]- 4135 07 Jun, 2011 [facility] [place] [facility] [address] [id number] [place] [address]- 1920 07 Jun, 2011 [facility] [place] [facility] [address] [id number] [place] [address]- 7526 03 Jun, 2011 [facility] [place] [facility] [address] [id number] [place] [address]- 5566 02 Jun, 2011 [facility] [place] [facility] [address] [id number] [place] [address]- 3046 31 May, 2011 [facility] [address] [id number] [place] [address]- 5171 30 May, 2011 [facility] [place] [facility] [address] [id number] [place] [address]- 9401 May, [facility] [address] [id number] [place] [address]- 8024 May, [facility] [place] [facility] [address] [id number] [place] [address]- 1581 May, [facility] [address] [id number] [place] [address]- 8408 May, [facility] [address] [id number] [place] [address]- 5397 May, [facility] [address] [id number] [place] [address]- 1803 May, [facility] [place] [facility] [address] [id number] [place] [address]- 4432 May, [facility] [address] [id number] [place] [address]- 3910 May, [facility] [place] [facility] [address] [id number] [place] [address]- 8714 May, [facility] [address] [id number] [place] [address]- 5391 May, [facility] [place] [facility] [address] [id number] [place] [address]- 3136 May, [facility] [place] [facility] [address] [id number] [place] [address]- 8398 May, [facility] [place] [facility] [address] [id number] [place] [address]- 8837 Apr, [facility] [place] [facility] [address] [id number] [place] [address]- 7546 Apr, [facility] [place] [facility] [address] [id number] [place] [address]- 1723 05 Apr, 2011 [facility] [address] [id number] [place] [address]- 0156 17 Mar, 2011 [facility] [place] [facility] [address] [id number] [place] [address] 2546 Mar, [facility] [address] [id number] [place] [address]- 6196 31 Feb, 2011 [facility] [place] [facility] [address] [id number] [place] [address] 2546 Feb, [facility] [address] [id number] [place] [address], [place] [address]- 5538 Feb, [facility] [address] [id number] [place] [address]- 5170 20 Feb, 2011 [facility] [address] [id number] [place] [address]- 0787 Feb, [facility] [address] [id number] [place] [address]- 6121 28 Apr, 2010 [facility] [place] [facility] [address] [id number] [place] [address]- 8958 22 Apr, 2010 [facility] [address] [facility] [id number] [place] [address]- 8100 16 Apr, 2010 [facility] [place] [facility] [address] [id number] [place] [address] 2546 15 Apr, 2010 [facility] [place] [facility] [address] [id number] [place] [address] 2546 15 Apr, 2010 [facility] [place] [facility] [address] [id number] [place] [address] 2546 Apr, [facility] [place] [facility] [address] [id number] [place] [address]- 2545 24 Mar, 2010 [facility] [place] [facility] [address] [id number] [place] [address]- 4033 Mar, [facility] [address] [id number] [address] 2415 Mar, [facility] [id number] [address]- 0971 Feb, [facility] [id number] [address]- 9381 Feb, [facility] [address] [facility] [id number] [address] Feb, [facility] [address] [address] Feb, [facility] [id number] [address] Dec, [facility] [address] [address] Dec, [facility] [address] [address] Oct, [facility] [address] [address] Mar, [facility] [address] [address] Mar, [facility] [id number] [address] September, IMMUNIZATIONS No Known Immunizations SOCIAL HISTORY Never Assessed REASON FOR VISIT TCM phone call/Med list update PLAN OF CARE VITAL SIGNS MEDICATIONS Medication Instructions Dosage Frequency Start Date End Date Duration Status Fluticasone Propionate 50 MCG/ACT Nasally twice a day 1 spray in each nostril 12h Feb, 30 day(s) Active Chlordiazepoxide HCl 10 MG 2 capsules in AM, 1 capsule in afternoon, 2 capsules at HS 22 Aug, 2016 14 days Active Macrobid 100 MG TAKE ONE CAPSULE BY MOUTH ONCE DAILY WITH FOOD 90 Not-Taking Lisinopril 20 MG Orally Once a day 1 tablet 24h September, 30 days Not-Taking Toprol XL 50 mg Orally Once a day 1 tablet 24h 24 Aug, 2016 Active Ventolin HFA 108 (90 Base) MCG/ACT Inhalation every 4 hrs 2 puffs as needed 4h Nov, Active Tizanidine HCl 4 MG Orally Three times a day 1 tablet 8h Dec, Dec, Active Pantoprazole Sodium 40 MG Orally Once a day 1 tablet 24h Jun, Dec, 30 days Not-Taking Amlodipine Besylate 5 mg Orally Once a day 1 tablet 24h Nov, 30 day(s) Active Robaxin 500 mg Orally 4 times a day 1 tablet 6h 30 Not-Taking Percocet 5-325 MG Not-Taking Lansoprazole 15 MG Orally Once a day 1 capsule 24h Active PredniSONE 20 mg Orally Once a day 2 tablets 24h Dec, Active Acetaminophen-Codeine #3 300-30 MG Orally every 6 hrs 1 tablet as needed 6h Oct, 28 days Active Bentyl 20 mg Orally three times a day as needed 1 tablet Active Oxycodone-Acetaminophen 5-325 MG Orally every 6 hrs 1 tablet as needed 6h Active Neurontin 100 mg Orally 3 times a day 1 capsule 8h September, 30 days Not-Taking Melatonin 3 MG Orally Once a day 1 tablet at bedtime as needed with food 24h Active RESULTS No Results PROCEDURES No Known [...]
--- OUTSIDE RECORDS SUMMARY | 2018-02-12 21:32 | XMS REPORT ---
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 Name Role Phone LAVONNE LACIE Unavailable PROBLEMS Type Condition ICD9-CM Code [id number] Code Onset Dates Condition Status SNOMED Code Problem Generalized anxiety disorder F41.1 Active 63436378 Problem Hypokalemia E87.6 Active 202268229 Problem Right low back pain, with sciatica presence unspecified M54.5 Active 407497231 Problem Pain in right knee M25.561 Active 70291241 Problem Gastroesophageal reflux disease without esophagitis K21.9 Active 195254640 Problem UTI symptoms R39.9 Active 75020557 Problem Essential hypertension I10 Active 18418607 Problem Right foot pain M79.671 Active 64766311 Problem Neuropathy G62.9 Active 072388558 Problem Other emphysema J43.8 Active 24111490 Problem Anxiety F41.9 Active 38422866 Problem Opioid use disorder, moderate, dependence F11.20 Active 21315319 Problem Other chronic pain G89.29 Active 34265784 Problem Bone pain M89.8X9 Active 75815890 Problem Chronic pain G89.29 Active 69018475 Problem Back pain M54.9 Active 065063110 Problem Kidney stones N20.0 Active 38476428 Problem Panic attacks F41.0 Active 839565216 Problem Generalized abdominal pain R10.84 Active 183026112 Problem Renal calculus, right N20.0 Active 79805355 Problem Tobacco abuse Z72.0 Active 31057662 Problem Right upper quadrant abdominal pain R10.11 Active 246935428 Problem Depression, unspecified depression type F32.9 Active 91168089 Problem Weight decrease R63.4 Active 785565848 Problem Pulmonary emphysema, unspecified emphysema type J43.9 Active 63368807 Problem Post-traumatic stress disorder, chronic F43.12 Active 31767752 Problem Weight loss R63.4 Active 412072598 Problem Insomnia, unspecified type G47.00 Active 943196304 ALLERGIES No Information ENCOUNTERS Encounter Location Date Diagnosis [facility] [id number] [place] [address] 82218- 9946 14 Dec, 2017 [facility] [id number] [place] [address] 44629- 7265 Dec, [facility] [id number] [place] [address] 97670- 5733 Dec, Medicare welcome exam Z00.00 [facility] [id number] [place] [address] 29889- 7071 17 Nov, 2017 Opioid use disorder, moderate, dependence F11.20 [facility] [id number] [place] [address] 46032- 5277 16 Nov, 2017 Pelvic pain R10.2 ; Acute pyelonephritis N10 and Essential hypertension I10 [facility] [id number] [place] [address] 07775- 1064 28 Oct, 2017 Medicare welcome exam Z00.00 [facility] [id number] [place] [address] 81355- 7518 18 Oct, 2017 Gross hematuria R31.0 ; Urinary tract infection without hematuria, site unspecified N39.0 and Weakness R53.1 [facility] [id number] [place] [address] 18329- 1493 13 Oct, 2017 [facility] [id number] [place] [address] 68652- 0496 Oct, [facility] [id number] [place] [address] 02461- 6865 Oct, Medicare welcome exam Z00.00 [facility] [id number] [place] [address] 08634- 7820 September, Back pain M54.9 and Right anterior knee pain M25.561 [facility] [id number] [place] [address] 33239- 2057 September, [facility] [address] [address]- 1178 September, [facility] [id number] [place] [address] 06553- 3262 September, Essential hypertension I10 [facility] [id number] [place] [address] 33435- 2279 September, [facility] [id number] [place] [address] 29943- 2033 September, RLQ abdominal pain R10.31 ; Low back pain M54.5 and Other chronic pain G89.29 [facility] [id number] [place] [address] 47253- 8043 Aug, Medicare welcome exam Z00.00 [facility] [id number] [place] [address] 10894- 7958 Aug, [facility] [id number] [place] [address] 78166- 6253 Aug, Acute pyelonephritis N10 and Medicare welcome exam Z00.00 [facility] [id number] [place] [address] 11830 -3789 Aug, Dysuria R30.0 and Acute pyelonephritis N10 [facility] [id number] [address]- 9215 Aug, [facility] [id number] [place] [address] 46113- 6456 Aug, [facility] [id number] [place] [address] 99570- 6437 Aug, [facility] [id number] [place] [address] 22045- 4957 Aug, [facility] [id number] [place] [address] 37380- 8083 Jul, [facility] [id number] [place] [address] 24684- 4697 Jul, Renal calculus, right N20.0 and Medicare welcome exam Z00.00 [facility] [id number] [place] [address] 40247 -2856 Jul, Dysuria R30.0 and Renal calculus, right N20.0 [facility] [id number] [place] [address] 43364- 3562 Jul, Medicare welcome exam Z00.00 [facility] [id number] [place] [address] 30399- 9867 Jun, Gastroesophageal reflux disease without esophagitis K21.9 and Generalized abdominal pain R10.84 [facility] [id number] [place] [address] 19756- 7506 09 Jun, 2017 Medicare welcome exam Z00.00 [facility] [id number] [place] [address] 54945- 8143 Jun, [facility] [id number] [place] [address] 00714- 6374 Jun, Medicare welcome exam Z00.00 and Encounter for screening mammogram for malignant neoplasm of breast Z12.31 [facility] [id number] [place] [address] 32839- 5595 Jun, Chronic pain G89.29 [facility] [id number] [place] [address] 43480- 8772 May, [facility] [id number] [place] [address] 91965- 9737 May, Pelvic pain R10.2 [facility] [id number] [place] [address] 29910- 7040 May, Pelvic pain R10.2 [facility] [id number] [place] [address] 78718 -6384 May, Renal calculus, right N20.0 [facility] [id number] [place] [address] 44415- 8685 May, Hematuria, unspecified type R31.9 and Nephrolithiasis N20.0 [facility] [id number] [place] [address] 83146 -0705 May, Dysuria R30.0 and Nephrolithiasis N20.0 [facility] [id number] [place] [address] 95206- 5423 May, [facility] [id number] [place] [address] 51007 -5743 May, Abdominal pain R10.9 and Kidney stone N20.0 [facility] [id number] [place] [address] 02111- 6075 May, [facility] [id number] [place] [address] 96141- 2935 May, Chronic pain G89.29 and Panic attacks F41.0 [facility] [id number] [place] [address] 69944- 0595 May, Urinary tract infection without hematuria, site unspecified N39.0 [facility] [id number] [place] [address] 85367- 8422 Apr, Right lower quadrant abdominal pain R10.31 and Abnormal serum lipase level R74.8 [facility] [id number] [place] [address] 88499- 4821 Apr, Recurrent urinary tract infection N39.0 [facility] [id number] [place] [address] 62887- 1805 Apr, UTI symptoms R39.9 ; Recurrent urinary tract infection N39.0 and Pelvic pain R10.2 [facility] [id number] [place] [address] 99183- 2747 Apr, Chronic pain G89.29 and Panic attacks F41.0 [facility] [id number] [place] [address] 53504- 3011 Apr, Dysuria R30.0 [facility] [id number] [place] [address] 38919- 0446 Apr, [facility] [id number] [place] [address] 59577- 2228 Apr, Dysuria R30.0 and Urinary tract infection without hematuria , site unspecified N39.0 [facility] [address] 86503- 6355 Mar, UTI symptoms R39.9 [facility] [address] 57423- 8806 Mar, [facility] [address] 73830- 7342 Mar, Panic attacks F41.0 and Chronic pain G89.29 [facility] [address] 20768- 5043 Mar, [facility] [id number] [place] [address] 73302- 0484 Mar, Dysuria R30.0 [facility] [address] 43941- 0581 Mar, Dysuria R30.0 [facility] [id number] [place] [address] 94162- 5207 Feb, Chronic pain G89.29 ; Shortness of breath R06.02 ; Weight loss R63.4 ; Encounter for immunization Z23 ; Bone pain M89.8X9 ; Right anterior knee pain M25.561 and Cough R05 [facility] [address] 13198- 6021 Feb, Shortness of breath R06.02 [facility] [id number] [place] [address] 74793- 7349 Feb, [facility] [address] 66065- 6359 Feb, Panic attacks F41.0 and Chronic pain G89.29 [facility] [address] 97223- 5803 Feb, [facility] [address] 34081- 5423 Feb, Panic attacks F41.0 ; Shortness of breath R06.02 and Encounter for immunization Z23 [facility] [address] 53794- 9852 Jan, [facility] [address] 02729- 5825 Jan, Anxiety F41.9 and Chronic pain G89.[address] 92448- 1627 Dec, Anxiety F41.9 and Chronic pain G89.[address] 31289- 2534 Nov, Chronic pain G89.[address] 81779- 2679 Nov, Anxiety F41.[address] 91071- 5239 Nov, Chronic pain G89.29 ; Essential hypertension I10 and Other emphysema J43.[address] 58910- 2955 Oct, Anxiety F41.9 [facility] [id number] [place] [address] 27559- 4383 Oct, [address] 88445- 9791 Oct, Chronic pain G89.29 [address] [id number] [place] [address] 53193- 4808 September, Recurrent UTI N39.0 ; Neuropathy G62.9 and Anxiety F41.9 [facility] [id number] [place] [address] 48359- 6936 September, [facility] [id number] [place] [address] 20143- 0218 September, Chronic pain G89.29 [facility] [id number] [place] [address] 65608- 3768 September, [facility] [id number] [place] [address] 03593- 3793 Aug, Post-traumatic stress disorder, chronic F43.12 ; Chronic urinary tract infection N39.0 ; Gastroesophageal reflux disease without esophagitis K21.9 ; Chronic pain G89.29 ; Essential hypertension I10 and Tobacco abuse Z72.0 [facility] [id number] [place] [address] 29328 -4828 Aug, [facility] [address] 72238- 7960 Aug, Chronic pain G89.29 [facility] [id number] [place] [address] 89976- 6603 Aug, Insomnia, unspecified type G47.00 [facility] [id number] [place] [address] 32867- 5872 Aug, [facility] [id number] [place] [address] 22768- 6480 Jul, Chronic pain G89.29 [facility] [id number] [place] [address] 46885- 9253 Jul, [facility] [address] 19409- 6064 Jul, [facility] [id number] [place] [address] 15580- 4813 Jul, [facility] [id number] [place] [address] 59373- 1762 15 Jul, 2016 Recurrent UTI (urinary tract infection) N39.0 [facility] [id number] [address]- 1085 Jul, [facility] [id number] [place] [address] 98508- 1872 Jun, Chronic pain G89.29 [facility] [id number] [place] [address] 30498- 8184 Jun, [facility] [id number] [place] [address] 14785- 2042 Jun, [facility] [id number] [place] [address] 51052- 7750 May, Chronic pain G89.29 [facility] [id number] [place] [address] 71356- 1323 May, Weight loss R63.4 and Shortness of breath R06.02 [facility] [id number] [place] [address] 83106- 4832 May, Chronic pain G89.29 ; Weight loss R63.4 and Tobacco abuse Z72.0 [facility] [id number] [place] [address] 69193- 4120 May, [facility] [id number] [place] [address] 00650- 7230 May, Hypoxia R09.02 [facility] [id number] [place] [address] 24908- 8874 May, [facility] [id number] [place] [address] 38303- 5727 May, Pulmonary emphysema, unspecified emphysema type J43.9 [facility] [id number] [place] [address] 73089 -7225 May, [facility] [id number] [place] [address] 20140- 3562 May, [facility] [id number] [place] [address] 84320- 9045 May, [facility] [address] 59151- 9399 May, Chronic pain G89.29 ; Encounter for immunization Z23 ; Right anterior knee pain M25.561 and Cough R05 [facility] [address] 16119- 6812 Apr, Chronic pain G89.29 [facility] [id number] [place] [address] 90115- 6582 Apr, [facility] [address] 76167- 1788 Apr, Generalized anxiety disorder F41.1 and Depression, unspecified depression type F32.9 [facility] [address] 65273- 8656 Apr, Chronic pain G89.29 ; Hypokalemia E87.6 and Insomnia, unspecified type G47.00 [facility] [id number] [place] [address] 49792- 8982 Apr, [facility] [id number] [place] [address] 88921- 2864 Apr, Chronic pain G89.29 [facility] [id number] [place] [address] 13200- 7557 Apr, [facility] [id number] [place] [address] 89835- 1394 Mar, [facility] [id number] [place] [address] 04260- 7315 Mar, Insomnia, unspecified type G47.00 [facility] [id number] [place] [address] 02573- 4059 Mar, Chronic pain G89.29 [facility] [id number] [place] [address] 42379- 5201 Mar, [facility] [address], [place] [address]- 9290 Feb, [facility] [id number] [place] [address]- 1048 Feb, [facility] [address], [place] [address]- 5879 Feb, [facility] [id number] [place] [address] 85919- 2251 Feb, [facility] [id number] [address]- 4568 Feb, [facility] [id number] [place] [address] 67011- 2076 29 Jan, 2016 [facility] [id number], [place] [address]- 1264 26 Jan, 2016 [facility] [id number], [place] [address]- 2088 20 Jan, 2016 [facility] [id number], [place] [address]- 7229 13 Jan, 2016 [facility] [address] [place] [address]- 6765 12 Jan, 2016 [facility] [id number] [place] [address]- 3230 07 Jan, 2016 Chronic pain G89.29 [facility] [address], [place] [address]- 0153 Jan, Chronic pain G89.29 and Fibromyalgia M79.7 [facility] [id number], [place] [address]- 5297 Dec, Depression, unspecified depression type F32.9 and Generalized anxiety disorder 300.02 [facility] [id number], [place] [address]- 0229 Dec, Dysthymia F34.1 ; Insomnia, unspecified type G47.00 and Chronic pain G89.29 [facility] [id number] [place] [address] 87813 2540 Dec, Chronic pain G89.29 [facility] [id number] [place] [address] 24436 2545 Dec, Insomnia, unspecified type G47.00 [facility] [address] 75175 2542 Dec, Fibromyalgia M79.7 and Chronic pain G89.29 [facility] [id number] [place] [address] 78630- 3645 Dec, [facility] [id number] [place] [address] 52829- 9051 Dec, [facility] [id number] [place] [address] 39433- 6303 Dec, [facility] [id number] [place] [address] 46913- 1993 Dec, [facility] [id number] [place] [address] 10121- 2095 Dec, Chronic pain G89.29 [facility] [id number] [place] [address] 88126 2544 Dec, [facility] [id number] [place] [address] 71504 2540 Dec, [facility] [id number] [place] [address] 43378 254 Dec, [facility] [id number] [place] [address] 96156- 0915 Dec, Chronic pain G89.29 and Dysthymia F34.1 [facility] [id number] [place] [address] 88350 2543 Nov, [facility] [id number] [place] [address] 53711- 3867 Nov, Hypokalemia E87.6 and Chronic pain G89.29 [facility] [id number] [place] [address] 53925- 7152 Nov, Back pain M54.9 and Pain in right knee M25.561 [facility] [id number] [place] [address] 34897- 3820 Nov, [facility] [address] 10043- 5300 Nov, Chronic pain G89.29 [facility] [address] 36236- 0023 Nov, Chronic pain G89.29 ; Weight loss R63.4 ; Bone pain M89.8X9 and Insomnia, unspecified type G47.00 [facility] [id number] [place] [address] 18449- 1867 Nov, Chronic pain G89.29 [facility] [address] 67140- 5335 Nov, Chronic pain G89.29 [facility] [address] 03653- 3415 Oct, Chronic pain G89.29 [facility] [id number] [place] [address] 86176- 5671 Oct, UTI symptoms R39.9 [facility] [id number] [place] [address] 56685- 9734 Oct, Chronic pain G89.29 [facility] [id number] [place] [address] 91332- 3883 20 Oct, 2015 Chronic pain G89.29 [facility] [id number] [place] [address] 73619- 4295 13 Oct, 2015 Chronic pain G89.29 [facility] [address] 51627- 5333 Oct, Right upper quadrant abdominal pain R10.11 [facility] [address] [place] [address]- 0531 Oct, Chronic pain G89.29 [facility] [address] [place] [address]- 3160 Oct, [facility] [id number] [place] [address] 28012- 6673 September, Chronic pain G89.29 [facility] [id number], [place] [address]- 8280 September, Dysuria R30.0 and Urinary tract infection without hematuria , site unspecified N39.0 [facility] [address] [place] [address]- 9399 September, [facility] [id number] [place] [address] 90043- 7728 September, Dysuria R30.0 [facility] [id number] [place] [address] 11755- 6232 September, Chronic pain G89.29 [facility] [address] [place] [address]- 4048 September, Chronic pain G89.29 and Essential hypertension I10 [facility] [id number] [place] [address]- 9664 September, [facility] [id number] [place] [address] September, [facility] [id number] [place] [address] September, [facility] [id number] [place] [address] Aug, UTI symptoms R39.9 [facility] [id number] [place] [address] Aug, Dysuria R30.0 [facility] [id number] [place] [address] Aug, [facility] [id number] [place] [address] Aug, [facility] [id number] [place] [address] Aug, [facility] [id number] [place] [address] Aug, Chronic pain G89.29 [facility] [id number] [place] [address]- [address] Aug, Dysthymia F34.1 [facility] [id number] [place] [address] Aug, Conjunctivitis, unspecified conjunctivitis type, unspecified laterality H10.9 [facility] [id number] [place] [address]- 0828 31 Jul, 2015 Chronic pain G89.29 ; Back pain M54.9 ; Tobacco abuse Z72.0 and Weight decrease R63.4 [facility] [id number] [place] [address]- 7978 30 Jul, 2015 [facility] [id number] [address] 30 Jul, 2015 [facility] [id number] [place] [address] 24 Jul, 2015 Chronic pain G89.29 [facility] [id number] [place] [address] Jul, [facility] [id number] [place] [address] Jul, [facility] [id number] [place] [address] 18 Jul, 2015 [facility] [id number] [place] [address]6770- 9786 17 Jul, 2015 [facility] [id number], [place] [address] 17 Jul, 2015 Chronic pain G89.29 [facility] [id number] [place] [address] 16 Jul, 2015 Chronic pain G89.29 [facility] [id number] [place] [address] 15 Jul, 2015 [facility] [id number] [place] [address]- 0886 Jul, [facility] [id number] [place] [address]36- 6864 Jul, [facility] [id number] [place] [address] 89[address]- 8799 Jul, [facility] [id number] [place] [address]- 9396 Jun, [facility] [id number] [place] [address] 27184- 5996 Jun, Depression, unspecified depression type F32.9 [facility] [id number] [place] [address] 33880- 4764 Jun, Pain in right knee M25.561 [facility] [id number], [place] [address] 9[address] Jun, Chronic pain G89.29 ; Back pain M54.9 ; Bone pain M89.8X9 and Weight loss R63.4 [facility] [id number] [address] 1533 Jun, [facility] [id number] [address] 3440 May, [facility] [id number], [place] [address] 9488 May, UTI symptoms R39.9 ; Pain in right knee M25.561 ; Right low back pain, with sciatica presence unspecified M54.5 ; Right foot pain M79.671 ; Hypokalemia E87.6 and Screening, lipid Z13.220 [facility] [id number] [place] [address] 62460- 8612 May, [facility] [id number] [place] [address] 10904 2546 May, [facility] [address] [address] 2543 Mar, [facility] [id number] [place] [address] 99714- 8126 Mar, [facility] [id number] [place] [address] 51148- 0639 Mar, Hypokalemia E87.6 [facility] [address] [address]- 9634 Mar, Pain in right leg M79.604 ; Encounter for immunization Z23 ; Pain in right knee M25.561 and Hypokalemia E87.6 [facility] [id number] [place] [address] 22051 2544 Jan, [facility] [id number] [place] [address] 19396 2547 Jan, [facility] [id number] [place] [address] 80929 2546 Jan, Abdominal pain, generalized 789.07 [facility] [id number] [place] [address] 86305 2543 Jan, Abdominal pain, generalized 789.07 [facility] [id number] [place] [address] 74226 2547 Dec, [facility] [id number] [place] [address] 09514 2544 Dec, [facility] [address] [place] [address]- 7442 Dec, [facility] [id number], [place] [address]- 5700 Nov, Hallux valgus 735.0 and Hammertoe 735.4 [facility] [id number], [place] [address]- 0306 Nov, [facility] [id number] [place] [address] 73310 2546 Nov, Hallux valgus 735.0 and Hammer toe 735.4 [facility] [id number] [place] [address] 35793- 5166 Oct, [facility] [id number] [place] [address] 63652- 3936 Oct, [facility] [id number] [place] [address] 16883- 9508 Oct, Pre-op evaluation V72.84 [facility] [id number] [place] [address] 67106- 8183 Oct, [facility] [id number] [place] [address] 23851- 1319 Oct, [facility] [id number], [place] [address]- 4360 September, [facility] [id number] [place] [address] 77537- 3106 September, [facility] [id number], [place] [address]- 5744 September, Hallux valgus (acquired) 735.0 and Other hammer toe ( acquired) 735.4 [facility] [id number], [place] [address]- 2646 Aug, [facility] [id number], [place] [address]- 5458 Aug, [facility] [place] [facility] [address] [id number] [place] [address]- 6824 09 Jul, 2014 [facility] [place] [facility] [address] [id number] [place] [address]- 7241 Jul, 2014 [facility] [place] [facility] [address] [id number] [place] [address]- 8408 Jul, 2014 [facility] [place] [facility] [address] [id number] [place] [address]- 2855 05 Jul, 2014 [facility] [place] [facility] [address] [id number] [place] [address]- 5542 Jul, 2014 [facility] [place] [facility] [address] [id number] [place] [address]- 9865 Jul, 2014 [facility] [place] [facility] [address] [facility] [id number] [place] [address]- 9062 Jul, 2014 [facility] [place] [facility] [address] [id number] [place] [address]- 7731 Jul, 2014 [facility] [place] [facility] [address] [id number] [place] [address]- 2485 Jun, 2014 [facility] [place] [facility] [address] [facility] [id number] [place] [address]- 5426 Jun, 2014 [facility] [place] [facility] [address] [facility] [id number] [place] [address]- 3981 Jun, 2014 [facility] [place] [facility] [address] [facility] [id number] [address]- 9410 Jun, 2014 [facility] [place] [facility] [address] [facility] [id number] [place] [address]- 6591 Jun, 2014 [facility] [place] [facility] [address] [id number] [place] [address]- 7635 Jun, 2014 [facility] [place] [facility] [address] [facility] [id number] [place] [address]- 8155 Jun, 2014 [facility] [place] [facility] [address] [facility] [id number] [place] [address]- 9900 Jun, [facility] [place] [facility] [address] [id number] [place] [address]- 0105 Jun, [facility] [place] [facility] [address] [id number] [place] 0016 Jun, [facility] [place] [facility] [address] [id number] [place] [address]- 1433 May, [facility] [place] [facility] [address] [id number] [place] [address]- 5116 May, [facility] [place] [facility] [address] [id number] [place] [address]- 2836 May, [facility] [place] [facility] [address] [id number] [place] [address]- 7673 May, [facility] [place] [facility] [address] [id number] [place] [address]- 8237 May, [facility] [place] [facility] [address] [id number] [place] [address]- 4836 May, [facility] [place] [facility] [address] [id number] [place] [address]- 0195 May, [facility] [place] [facility] [address] [id number] [place] [address]- 4386 May, [facility] [place] [facility] [address] [id number] [place] [address]- 1682 May, [facility] [place] [facility] [address] [id number] [place] [address]- 0304 May, [facility] [place] [facility] [address] [id number] [place] [address]- 9097 May, [facility] [place] [facility] [address] [id number] [place] [address]- 3719 May, [facility] [place] [facility] [address] [id number] [place] [address]- 4700 May, [facility] [place] [facility] [address] [id number] [place] [address]- 9012 May, [facility] [place] [facility] [address] [id number] [place] [address]- 1681 May, [facility] [place] [facility] [address] [id number] [place] [address]- 3791 May, [facility] [place] [facility] [address] [id number] [place] [address]- 1636 May, [facility] [place] [facility] [address] [id number] [place] [address]- 8302 May, [facility] [place] [facility] [address] [id number] [place] [address]- 3260 Apr, [facility] [place] [facility] [address] [id number] [place] [address]- 1842 Apr, [facility] [place] [facility] [address] [id number] [place] [address]- 7389 Apr, [facility] [place] [facility] [address] [id number] [place] [address]- 8919 Apr, [facility] [place] [facility] [address] [id number] [place] [address]- 4615 Apr, [facility] [place] [facility] [address] [id number] [place] [address]- 5006 Apr, [facility] [place] [facility] [address] [id number] [place] [address]- 5857 Apr, [facility] [place] [facility] [address] [id number] [place] 3488 Apr, [facility] [place] [facility] [address] [id number] [place] 6276 Apr, [facility] [place] [facility] [address] [id number] [place] [address]- 9206 Mar, [facility] [place] [facility] [address] [id number] [place] [address]- 0697 Mar, [facility] [place] [facility] [address] [id number] [place] [address]- 8180 Mar, [facility] [place] [facility] [address] [id number] [place] [address]- 5545 Mar, [facility] [place] [facility] [address] [id number] [place] [address]- 8312 Mar, [facility] [place] [facility] [address] [id number] [place] [address]- 7341 Feb, [facility] [place] [facility] [address] [id number] [place] 0891 Feb, [facility] [place] [facility] [address] [id number] [place] [address]- 1964 Feb, [facility] [place] [facility] [address] [id number] [place] [address]- 1076 Feb, [facility] [place] [facility] [address] [id number] [address]- 1067 Feb, [facility] [place] [facility] [address] [id number] [place] [address]- 0113 Feb, [facility] [place] [facility] [address] [id number], [place] [address]- 5277 Feb, [facility] [place] [facility] [address] [id number], [place] [address]- 1066 Feb, [facility] [place] [facility] [address] [id number], [place] [address]- 7930 Feb, [facility] [place] [facility] [address] [id number] [place] [address]- 2672 Feb, [facility] [place] [facility] [address] [id number], [place] [address]- 2456 Feb, [facility] [place] [facility] [address] [id number], [place] [address]- 3234 Feb, [facility] [place] [facility] [address] [id number] [place] [address]- 3604 07 Feb, 2013 [facility] [place] [facility] [address] [id number] [place] [address]- 4535 Feb, 2013 [facility] [place] [facility] [address] [id number] [place] [address]- 5628 Feb, 2013 [facility] [place] [facility] [address] [id number] [place] [address]- 4726 Feb, [facility] [place] [facility] [address] [id number] [place] [address]- 7786 Jan, 2013 [facility] [place] [facility] [address] [id number] [place] [address]- 2362 23 Jan, 2013 [facility] [place] [facility] [address] [id number] [place] [address]- 6344 20 Jan, 2014 [facility] [place] [facility] [address] [id number] [place] [address]- 1400 19 Jan, 2013 [facility] [place] [facility] [address] [id number] [place] [address]- 0592 11 Jan, 2014 [facility] [place] [facility] [address] [id number] [place] [address]- 0449 Jan, [facility] [place] [facility] [address] [id number] [place] [address]- 5194 Jan, [facility] [place] [facility] [address] [id number] [place] [address]- 8283 Jan, [facility] [place] [facility] [address] [id number] [place] [address]- 1454 Dec, [facility] [place] [facility] [address] [id number] [place] [address]- 9231 Dec, [facility] [place] [facility] [address] [id number] [place] [address]- 4783 Nov, [facility] [place] [facility] [address] [id number] [place] [address]- 4253 Nov, [facility] [place] [facility] [address] [id number] [place] [address]- 2344 Nov, [facility] [place] [facility] [address] [id number] [place] [address]- 6973 Nov, [facility] [place] [facility] [address] [id number] [place] [address]- 8323 Nov, [facility] [place] [facility] [address] [id number] [place] [address]- 8291 Nov, [facility] [place] [facility] [address] [id number] [place] [address]- 9320 Nov, [facility] [place] [facility] [address] [id number] [place] [address]- 2994 Nov, [facility] [place] [facility] [address] [id number] [place] [address]- 2490 Nov, [facility] [place] [facility] [address] [id number] [place] [address]- 3737 Oct, [facility] [place] [facility] [address] [id number] [place] [address]- 1681 Oct, [facility] [place] [facility] [address] [id number] [place] [address]- 2267 Oct, [facility] [place] [facility] [address] [id number] [place] [address]- 8930 Oct, [facility] [place] [facility] [address] [id number] [place] [address]- 8799 Oct, [facility] [place] [facility] [address] [id number] [place] [address]- 2590 Oct, [facility] [place] [facility] [address] [id number] [place] [address]- 9963 September, [facility] [place] [facility] [address] [id number] [place] [address]- 6732 September, [facility] [place] [facility] [address] [id number] [place] [address]- 1414 September, [facility] [address] [id number] [place] [address]- 7217 September, [facility] [place] [facility] [address] [id number] [place] 0808 September, [facility] [place] [facility] [address] [id number] [place] [address]- 7247 September, [facility] [place] [facility] [address] [id number] [place] [address]- 2017 September, [facility] [place] [facility] [address] [id number] [place] [address]- 1463 September, [facility] [place] [facility] [address] [id number] [place] [address]- 0635 September, [facility] [address] [id number] [place] [address]- 4114 September, [facility] [place] [facility] [address] [id number] [place] [address]- 2646 September, [facility] [place] [facility] [address] [id number] [place] [address]- 1496 September, [facility] [place] [facility] [address] [id number] [place] [address]- 7964 September, [facility] [place] [facility] [address] [id number] [place] [address]- 7588 September, [facility] [place] [facility] [address] [id number] [place] [address]- 3134 September, [facility] [place] [facility] [address] [id number] [place] [address]- 4415 September, [facility] [place] [facility] [address] [id number] [place] [address]- 7062 September, [facility] [place] [facility] [address] [id number] [place] [address]- 0333 September, [facility] [place] [facility] [address] [id number] [place] [address]- 0345 September, [facility] [place] [facility] [address] [id number] [place] [address]- 5111 September, [facility] [place] [facility] [address] [id number] [place] [address]- 4893 Aug, [facility] [place] [facility] [address] [id number] [place] [address]- 4176 Aug, [facility] [place] [facility] [address] [id number] [place] [address]- 8125 Aug, [facility] [place] [facility] [address] [id number] [place] [address]- 3740 Aug, [facility] [place] [facility] [address] [id number] [place] [address]- 3779 Aug, [facility] [place] [facility] [address] [id number] [place] [address]- 8923 Aug, [facility] [place] [facility] [address] [id number] [place] [address]- 3788 Aug, [facility] [place] [facility] [address] [id number] [place] [address]- 8896 Aug, [facility] [place] [facility] [address] [id number] [place] [address]- 1442 Aug, [facility] [place] [facility] [address] [id number] [place] [address]- 5846 15 Aug, 2013 [facility] [place] [facility] [address] [id number] [place] [address]- 5496 14 Aug, 2013 [facility] [place] [facility] [address] [id number] [place] [address]- 4901 Aug, [facility] [place] [facility] [address] [id number] [place] [address]- 1857 Aug, [facility] [place] [facility] [address] [id number] [place] [address]- 8704 Aug, [facility] [place] [facility] [address] [id number] [place] [address]- 6660 Aug, [facility] [place] [facility] [address] [id number] [place] [address]- 7545 Jul, [facility] [place] [facility] [address] [id number] [place] [address]- 6299 Jul, [facility] [place] [facility] [address] [id number] [place] [address]- 3815 Jul, [facility] [place] [facility] [address] [id number] [place] [address]- 9731 27 Jul, 2013 [facility] [place] [facility] [address] [id number] [place] [address]- 3803 Jul, [facility] [place] [facility] [address] [id number] [place] [address]- 6022 Jul, [facility] [place] [facility] [address] [id number] [place] [address]- 6287 18 Jul, 2013 [facility] [place] [facility] [address] [id number] [place] [address]- 7914 18 Jul, 2013 [facility] [place] [facility] [address] [id number] [place] [address]- 2936 Jul, [facility] [place] [facility] [address] [id number] [place] [address]- 0069 Jul, [facility] [place] [facility] [address] [id number], [place] [address]- 5923 Jul, [facility] [place] [facility] [address] [id number] [place] [address]- 3519 Jul, [facility] [place] [facility] [address] [id number] [place] [address]- 6112 Jul, [facility] [place] [facility] [address] [id number] [place] [address]- 6445 Jul, [facility] [place] [facility] [address] [id number] [place] [address]- 9883 Jul, [facility] [place] [facility] [address] [id number] [place] [address]- 3256 Jun, [facility] [place] [facility] [address] [id number] [place] 8536 Jun, [facility] [place] [facility] [address] [id number] [place] [address]- 3866 Jun, [facility] [place] [facility] [address] [id number] [place] [address]- 6872 Jun, [facility] [place] [facility] [address] [id number] [place] [address]- 9545 Jun, [facility] [place] [facility] [address] [id number] [place] [address]- 3878 Jun, [facility] [place] [facility] [address] [id number] [place] [address]- 9723 May, [facility] [place] [facility] [address] [id number] [place] [address]- 3558 May, [facility] [place] [facility] [address] [id number] [place] [address]- 7755 May, [facility] [place] [facility] [address] [id number] [place] [address]- 7658 May, [facility] [place] [facility] [address] [id number] [place] [address]- 0794 May, [facility] [place] [facility] [address] [id number] [place] [address]- 1793 May, [facility] [place] [facility] [address] [id number] [place] [address] May, [facility] [place] [facility] [address] [id number] [place] [address] May, [facility] [place] [facility] [address] [id number] [place] [address] May, [facility] [address] [id number] [place] [address] May, [facility] [place] [facility] [address] [id number] [place] [address] May, [facility] [place] [facility] [address] [id number] [place] [address] May, [facility] [place] [facility] [address] [id number] [place] [address] 84[address] May, [facility] [place] [facility] [address] [id number] [place] [address] May, [facility] [place] [facility] [address] [id number] [place] [address] May, [facility] [place] [facility] [address] [id number] [place] [address] Apr, [facility] [place] [facility] [address] [id number] [place] [address]- 84[address] Apr, [facility] [place] [facility] [address] [id number] [place] [address] Apr, [facility] [place] [facility] [address] [id number] [place] [address]- [address] Apr, [facility] [place] [facility] [address] [id number] [place] [address]- 67[address] Apr, [facility] [place] [facility] [address] [id number], [place] [address] Apr, [facility] [place] [facility] [address] [id number] [place] [address]149 Apr, [facility] [place] [facility] [address] [id number] [place] [address]- [address] Apr, [facility] [place] [facility] [address] [id number] [place] [address] Apr, [facility] [place] [facility] [address] [id number], [place] [address] Apr, [facility] [address] [id number] [place] [address]- 15[address] Mar, [facility] [place] [facility] [address] [id number], [place] [address] Mar, [facility] [address] [facility] [id number] [place] [address]- [address] Mar, [facility] [place] [facility] [address] [id number], [place] [address] Mar, [facility] [address] [id number] [place] [address] 277[address] Mar, [facility] [address] [id number] [place] [address]- 8183 Mar, [facility] [address] [facility] [id number], [place] [address] Mar, [facility] [address] [id number], [place] [address] Mar, [facility] [address] [id number], [place] [address] Mar, [facility] [address] [facility] [id number], [place] [address] Mar, [facility] [address] [id number], [place] [address] Mar, [facility] [place] [facility] [address] [id number], [place] [address] Mar, [facility] [place] [facility] [address] [id number], [place] [address] Mar, [facility] [place] [facility] [address] [facility] [id number], [place] [address] Mar, [facility] [place] [facility] [address] [facility] [id number], [place] [address] 18 Mar, 2013 [facility] [place] [facility] [address] [id number] [place] [address]- [address]106 18 Mar, 2013 [facility] [place] [facility] [address] [id number] [place] [address]- [address]686 14 Mar, 2013 [facility] [place] [facility] [address] [id number] [place] [address]- 8313 14 Mar, 2013 [facility] [place] [facility] [address] [id number] [place] [address]- [address] Mar, [facility] [place] [facility] [address] [id number] [place] [address]- [address]39 Mar, [facility] [place] [facility] [address] [id number] [place] [address]- 67[address] Mar, [facility] [place] [facility] [address] [id number] [place] [address]- 7479 Mar, [facility] [place] [facility] [address] [id number] [place] [address] 8[address] Mar, [facility] [place] [facility] [address] [id number] [place] [address]- 7694 Feb, [facility] [place] [facility] [address] [id number] [place] [address]- [address] 18 Feb, 2013 [facility] [place] [facility] [address] [id number] [place] [address]- 5935 16 Feb, 2013 [facility] [place] [facility] [address] [id number] [place] [address]- [address]82 16 Feb, 2013 [facility] [place] [facility] [address] [id number] [place] [address]- 9696 15 Feb, 2013 [facility] [place] [facility] [address] [id number] [place] [address]- 9488 Feb, [facility] [place] [facility] [address] [id number] [place] [address] 09 Feb, 2013 [facility] [place] [facility] [address] [id number] [place] [address]- 2037 Feb, [facility] [place] [facility] [address] [id number] [place] [address]- 5434 Feb, [facility] [place] [facility] [address] [id number] [place] [address]- 9716 Feb, [facility] [place] [facility] [address] [id number] [place] [address]- 5660 30 Jan, 2013 [facility] [place] [facility] [address] [id number] [place] [address]- 7636 26 Jan, 2013 [facility] [place] [facility] [address] [id number] [place] [address]- [address] 24 Jan, 2013 [facility] [place] [facility] [address] [id number] [place] [address]- [address] 23 Jan, 2013 [facility] [place] [facility] [address] [id number] [place] [address]- 4399 Jan, [facility] [place] [facility] [address] [id number] [place] [address]- 2814 Dec, [facility] [place] [facility] [address] [id number] [place] [address]- 9053 Dec, [facility] [place] [facility] [address] [id number] [place] [address]- 3554 Dec, [facility] [place] [facility] [address] [id number] [place] [address]- 2505 15 Dec, 2012 [facility] [place] [facility] [address] [id number], [place] [address]- [address]15 14 Dec, 2012 [facility] [place] [facility] [address] [id number] [place] [address]- 7400 Dec, [facility] [place] [facility] [address] [id number] [place] Dec, [facility] [place] [facility] [address] [id number] [place] [address]- 2991 Nov, [facility] [place] [facility] [address] [id number] [place] [address] 2548 16 Nov, 2012 [facility] [address] [id number] [place] [place] [address] 15 Nov, 2012 [facility] [address] [id number] [place] [address] 05 Nov, 2012 [facility] [address] [id number] [place] [address] Nov, [facility] [address] [id number] [place] [address] 2820 Oct, [facility] [address] [id number] [place] [address] 1827 Oct, [facility] [address] [id number] [place] [address]- 2546 Oct, [facility] [address] [id number] [place] [address]- 1751 September, [facility] [address] [id number] [place] [address]- 7850 September, [facility] [address] [id number] [place] [address]- 7319 September, [facility] [address] [id number] [place] [address] 0811 September, [facility] [address] [id number] [place] [address]- 5347 September, [facility] [place] [facility] [address] [id number] [place] [address]- 0040 September, [facility] [place] [facility] [address] [id number] [place] [address]- 4802 September, [facility] [place] [facility] [address] [id number] [place] [address]- 5713 30 Aug, 2012 [facility] [address] [id number] [place] [address] 8017 Aug, [facility] [place] [facility] [address] [id number] [place] [address]- 4349 Aug, [facility] [address] [id number] [place] [address]- 5256 29 Jul, 2012 [facility] [address] [id number] [place] [address]- 9495 27 Jul, 2012 [facility] [address] [id number] [place] [address]- 3620 26 Jul, 2012 [facility] [address] [id number] [place] [address]- 4118 20 Jul, 2012 [facility] [address] [id number] [place] [address]- 7989 18 Jul, 2012 [facility] [address] [id number] [place] [address]- 2383 18 Jul, 2012 [facility] [address] [id number] [place] [address]- 1700 Jul, [facility] [address] [id number] [place] [address]- 6713 28 Jun, 2012 [facility] [address] [id number] [place] [address]- 9657 27 Jun, 2012 [facility] [address] [id number] [place] [address]- 5622 Jun, [facility] [address] [id number] [address]- 1807 20 Jun, 2012 [facility] [place] [facility] [address] [id number] [place] [address]- 254 15 Jun, 2012 [facility] [place] [facility] [address] [id number] [place] [address]- 5267 15 Jun, 2012 [facility] [place] [facility] [address] [id number] [place] [address] 2546 13 Jun, 2012 [facility] [place] [facility] [address] [id number] [place] [address]- 7919 12 Jun, 2012 [facility] [address] [id number] [place] [address]- 2226 Jun, [facility] [address] [id number] [place] [address]- 2546 Jun, [facility] [address] [id number] [place] [address]- 9376 30 May, 2012 [facility] [address] [id number] [place] [address] 2543 May, [facility] [address] [id number] [place] [address]- 8206 May, [facility] [address] [id number] [place] [address]- 7806 May, [facility] [address] [id number] [place] [address]- 2901 May, [facility] [address] [id number] [place] [address]- 4978 May, [facility] [address] [id number] [place] [address]- 4223 31 Apr, 2012 [facility] [address] [id number] [place] [address]- 1904 31 Apr, 2012 [facility] [address] [id number] [place] [address] 2546 28 Apr, 2012 [facility] [address] [id number] [place] [address] 2541 28 Apr, 2012 [facility] [address] [id number] [place] [address]- 5866 26 Apr, 2012 [facility] [address] [id number] [place] [address] 2546 20 Apr, 2012 [facility] [address] [id number] [place] [address]- 8440 Apr, [facility] [place] [facility] [address] [id number] [place] [address]- 7026 Mar, [facility] [place] [facility] [address] [id number] [place] [address]- 7031 29 Mar, 2012 [facility] [place] [facility] [address] [id number] [place] [address]- 5466 Mar, [facility] [place] [facility] [address] [id number] [place] [address]- 1617 Mar, [facility] [place] [facility] [address] [id number] [place] [address]- 1175 Mar, [facility] [place] [facility] [address] [id number] [place] [address]- 2888 Mar, [facility] [place] [facility] [address] [id number] [place] [address]- 7590 Mar, [facility] [place] [facility] [address] [id number] [place] [address]- 8264 Mar, [facility] [place] [facility] [address] [id number] [place] [address]- 8874 Mar, [facility] [place] [facility] [address] [id number] [place] [address]- 1450 Mar, [facility] [place] [facility] [address] [id number] [place] [address]- 6707 Mar, [facility] [place] [facility] [address] [id number], [place] [address]- 1518 Mar, [facility] [place] [facility] [address] [id number] [place] [address]- 0608 Mar, [facility] [place] [facility] [address] [id number] [place] [address]- 3230 Mar, [facility] [place] [facility] [address] [id number], [place] [address]- 6177 Mar, [facility] [place] [facility] [address] [id number], [place] [address]- 8533 Mar, [facility] [place] [facility] [address] [id number] [place] [address]- 5705 Mar, [facility] [place] [facility] [address] [id number] [place] [address]- 6382 Feb, [facility] [place] [facility] [address] [id number] [place] [address]- 4506 Feb, [facility] [place] [facility] [address] [id number] [place] [address]- 5608 Feb, [facility] [place] [facility] [address] [id number] [place] [address]- 9488 Feb, [facility] [place] [facility] [address] [id number] [place] [address]47 Feb, [facility] [place] [facility] [address] [id number] [place] [address]135 Feb, [facility] [place] [facility] [address] [id number] [place] [address]- 7641 Feb, [facility] [place] [facility] [address] [id number] [place] [address]- 6099 Feb, [facility] [place] [facility] [address] [id number] [place] [address]- 8776 Feb, [facility] [place] [facility] [address] [id number], [place] [address]- 7785 Feb, [facility] [place] [facility] [address] [id number], [place] [address]- 0435 Feb, [facility] [place] [facility] [address] [id number] [place] [address]- 0122 27 Jan, 2012 [facility] [place] [facility] [address] [id number] [place] [address]- 7050 25 Jan, 2012 [facility] [place] [facility] [address] [id number] [place] [address]- 4267 13 Jan, 2012 [facility] [place] [facility] [address] [id number] [place] [address]- 3183 12 Jan, 2012 [facility] [place] [facility] [address] [id number] [place] [address]- 3358 Jan, [facility] [place] [facility] [address] [id number] [place] [address]- 1236 Dec, [facility] [place] [facility] [address] [id number] [place] [address]- 3450 Dec, [facility] [place] [facility] [address] [id number] [place] [address]- 9247 Dec, [facility] [place] [facility] [address] [id number] [place] [address]- 1926 Dec, [facility] [place] [facility] [address] [id number] [place] [address]- 7454 Dec, [facility] [place] [facility] [address] [id number] [place] [address]- 9367 Dec, [facility] [place] [facility] [address] [id number] [place] [address]- 8993 Dec, [facility] [place] [facility] [address] [id number] [place] [address]- 6128 Dec, [facility] [place] [facility] [address] [id number] [place] [address]- 2519 Nov, [facility] [place] [facility] [address] [id number] [place] [address]- 5828 Nov, [facility] [place] [facility] [address] [id number] [place] [address]- 1126 Nov, [facility] [place] [facility] [address] [id number] [place] [address]- 3759 Nov, [facility] [place] [facility] [address] [id number] [place] [address]- 0996 Nov, [facility] [place] [facility] [address] [id number] [place] [address]- 2014 Oct, [facility] [address] [id number] [place] [address]- 4832 Oct, [facility] [place] [facility] [address] [id number] [place] [address]- 5464 September, [facility] [place] [facility] [address] [id number] [place] [address]- 4689 September, [facility] [place] [facility] [address] [id number] [place] [address]- 0321 September, [facility] [address] [id number] [place] [address]- 8087 September, [facility] [place] [facility] [address] [id number] [place] [address]- 5804 September, [facility] [place] [facility] [address] [id number] [place] [address]- 1257 September, [facility] [place] [facility] [address] [id number] [place] [address]- 3305 September, [facility] [place] [facility] [address] [id number] [place] [address]- 3268 September, [facility] [place] [facility] [address] [id number] [place] [address]- 7683 September, [facility] [place] [facility] [address] [id number] [place] [address]- 1603 September, [facility] [place] [facility] [address] [id number] [place] [address]- 7185 September, [facility] [place] [facility] [address] [id number] [place] [address]- 2408 September, [facility] [place] [facility] [address] [id number] [place] [address]- 3782 September, [facility] [place] [facility] [address] [id number] [place] [address]- 9847 September, [facility] [place] [facility] [address] [id number] [place] [address]- 0047 24 Aug, 2011 [facility] [place] [facility] [address] [id number] [place] [address]- 9267 20 Aug, 2011 [facility] [place] [facility] [address] [id number] [place] [address]- 8857 13 Aug, 2011 [facility] [place] [facility] [address] [id number] [place] [address]- 2470 11 Aug, 2011 [facility] [place] [facility] [address] [id number] [place] [address]- 9049 23 Jul, 2011 [facility] [place] [facility] [address] [id number] [place] [address]- 1593 13 Jul, 2011 [facility] [place] [facility] [address] [facility] [id number] [place] [address]- 0195 13 Jul, 2011 [facility] [id number] [place] [address]- 8269 28 Jun, 2011 [facility] [address] [place] [address] [id number] 26 Jun, 2011 [facility] [id number] [place] [address]- 5449 13 Jun, 2011 [facility] [place] [facility] [address] [id number] [place] [address]- 3747 10 Jun, 2011 [facility] [place] [facility] [address] [id number] [place] [address]- 5366 07 Jun, 2011 [facility] [place] [facility] [address] [id number], [place] [address]- 9653 07 Jun, 2011 [facility] [place] [facility] [address] [id number] [place] [address]- 0966 03 Jun, 2011 [facility] [place] [facility] [address] [id number], [place] [address]- 7346 02 Jun, 2011 [facility] [place] [facility] [address] [id number], [place] [address]- 6392 May, [facility] [place] [facility] [address] [id number] [place] [address]- 1141 30 May, 2011 [facility] [address] [id number] [place] [address]- 1971 May, [facility] [address] [id number] [place] [address]- 9350 May, [facility] [address] [id number] [place] [address]- 5743 May, [facility] [address] [id number] [place] [address]- 0339 May, [facility] [address] [id number] [place] [address]- 9353 May, [facility] [address] [id number] [place] [address]- 4681 May, [facility] [address] [id number] [place] [address]- 8316 May, [facility] [address] [id number] [place] [address]- 0021 May, [facility] [address] [id number] [place] [address]- 1975 May, [facility] [address] [id number] [place] [address]- 1778 May, [facility] [address] [id number] [place] [address]- 8430 May, [facility] [address] [id number] [place] [address]- 2013 May, [facility] [address] [id number] [place] [address]- 2806 Apr, [facility] [address] [id number] [place] [address]- 1736 16 Apr, 2011 [facility] [address] [id number] [place] [address]- 8427 05 Apr, 2011 [facility] [place] [facility] [address] [id number] [place] [address]- 3526 17 Mar, 2011 [facility] [place] [facility] [address] [id number] [place] [address]- 3166 Mar, [facility] [place] [facility] [address] [id number] [place] [address]- 8796 31 Feb, 2011 [facility] [place] [facility] [address] [id number] [place] [address] 2546 Feb, [facility] [place] [facility] [address] [id number] [place] [address]- 0601 Feb, [facility] [place] [facility] [address] [id number] [place] [address]- 3032 20 Feb, 2011 [facility] [place] [facility] [address] [id number] [place] [address]- 7186 Feb, [facility] [place] [facility] [address] [id number] [place] [address]- 2829 28 Apr, 2010 [facility] [place] [facility] [address] [id number] [place] [address]- 2116 22 Apr, 2010 [facility] [place] [facility] [address] [id number] [place] [address] 2542 16 Apr, 2010 [facility] [place] [facility] [address] [id number] [place] [address] 2546 15 Apr, 2010 [facility] [place] [facility] [address] [id number] [place] [address] 2546 15 Apr, 2010 [facility] [place] [facility] [address] [id number] [place] [address] 2544 Apr, [facility] [place] [facility] [address] [id number] [place] [address] 254 24 Mar, 2010 [facility] [place] [facility] [address] [id number] [place] [address]- 6856 17 Mar, 2010 [facility] [place] [facility] [id number], [place] [address]- 8449 17 Mar, 2010 [facility] [id number], [place] [address]- 1190 Feb, [facility] [id number], [place] [address]- 0425 Feb, [facility] [id number], [place] [address]- 1595 Feb, [facility] [id number], [place] [address]- 7180 Feb, [facility] [id number] [place] [address]- 3148 Dec, [facility] [id number], [place] [address]- 6624 Dec, [facility] [id number] [place] [address]- 0027 Oct, [facility] [id number], [place] [address] 1951 Mar, [facility] [id number], [place] [address]- 4770 Mar, [facility] [address] [id number], [place] [address]- 6129 September, IMMUNIZATIONS No Known Immunizations SOCIAL HISTORY Never Assessed REASON FOR VISIT Chlordiazepoxide Taper PLAN OF CARE VITAL SIGNS MEDICATIONS Medication Instructions Dosage Frequency Start Date End Date Duration Status Chlordiazepoxide HCl 10 MG 2 capsules in AM, 1 capsule in afternoon, 2 capsules at HS 22 Aug, 2016 14 days Active RESULTS No Results PROCEDURES No [...] surgery-Dr. Avitia-left foot surgery bunionectomy, reduction of vik 02/2012 Surgical History Foot surgery. Removal of hardware 10/2014 Surgical History Left foot surgery 10/2014 Surgical History left knee arthroplasty 12/2014 Hospitalization History Hospitalization for surgery only Hospitalization History ICU-COPD,UTI 05/2015
--- OUTSIDE RECORDS SUMMARY | 2018-02-12 21:33 | XMS REPORT ---
Author Author VALERIE ZAVALA [facility] Address [address] [place] [address] Care Team Providers Care Exotic Dancer Name Role Phone VALERIE ZAVALA Unavailable PROBLEMS Type Condition ICD9-CM Code [id number] Code Onset Dates Condition Status SNOMED Code Problem Generalized anxiety disorder F41.1 Active 66882564 Problem Hypokalemia E87.6 Active 666687979 Problem Right low back pain, with sciatica presence unspecified M54.5 Active 869813757 Problem Pain in right knee M25.561 Active 13989299 Problem Gastroesophageal reflux disease without esophagitis K21.9 Active 597650847 Problem UTI symptoms R39.9 Active 02402840 Problem Essential hypertension I10 Active 08354269 Problem Right foot pain M79.671 Active 17212885 Problem Neuropathy G62.9 Active 674729400 Problem Other emphysema J43.8 Active 16768222 Problem Anxiety F41.9 Active 40969753 Problem Opioid use disorder, moderate, dependence F11.20 Active 83016661 Problem Other chronic pain G89.29 Active 37167585 Problem Bone pain M89.8X9 Active 23578062 Problem Chronic pain G89.29 Active 26842473 Problem Back pain M54.9 Active 793165131 Problem Kidney stones N20.0 Active 10018674 Problem Panic attacks F41.0 Active 014809483 Problem Generalized abdominal pain R10.84 Active 106024170 Problem Renal calculus, right N20.0 Active 32934664 Problem Tobacco abuse Z72.0 Active 21239638 Problem Right upper quadrant abdominal pain R10.11 Active 054137743 Problem Depression, unspecified depression type F32.9 Active 23623283 Problem Weight decrease R63.4 Active 351909927 Problem Pulmonary emphysema, unspecified emphysema type J43.9 Active 74899163 Problem Post-traumatic stress disorder, chronic F43.12 Active 80671228 Problem Weight loss R63.4 Active 563138216 Problem Insomnia, unspecified type G47.00 Active 047828063 ALLERGIES Substance Reaction Event Type Date Status Sulfur rash Drug Allergy Nov, Active Remeron itching Drug Allergy Nov, Active Morphine Sulfate nausea Drug Allergy Nov, Active Demerol Unknown Drug Allergy Nov, Active Fentanyl 25 Mcg/hr Patch 72 Hr Unknown Non Drug Allergy Nov, Active ENCOUNTERS Encounter Location Date Diagnosis [place] [id number] [place] [address] 21211- 2725 14 Dec, 2017 [place] [id number] [place] [address] 47795- 2062 13 Dec, 2017 [place] [id number] [place] [address] 78522- 9391 Dec, Medicare welcome exam Z00.00 [place] [id number] [place] [address] 00117- 1662 17 Nov, 2017 Opioid use disorder, moderate, dependence F11.20 [place] [id number] [place] [address] 34020- 0065 16 Nov, 2017 Pelvic pain R10.2 ; Acute pyelonephritis N10 and Essential hypertension I10 [place] [id number] [place] [address] 00115- 1983 28 Oct, 2017 Medicare welcome exam Z00.00 [place] [id number] [place] [address] 97096- 7652 18 Oct, 2017 Gross hematuria R31.0 ; Urinary tract infection without hematuria, site unspecified N39.0 and Weakness R53.1 [place] [id number] [address]- 9391 13 Oct, 2017 [place] [id number] [place] [address] 48419- 2388 Oct, [place] [id number] [place] [address] 03589- 0195 Oct, Medicare welcome exam Z00.00 [place] [id number] [place] [address] 45915- 8392 September, Back pain M54.9 and Right anterior knee pain M25.561 [facility] [id number] [place] [address] 14163- 9818 September, [facility] [id number] [place] [address] 44416- 5923 September, [facility] [id number] [place] [address] 89177- 6140 September, Essential hypertension I10 [facility] [id number] [place] [address] 17055- 9870 September, [facility] [id number] [place] [address] 83215- 3383 September, RLQ abdominal pain R10.31 ; Low back pain M54.5 and Other chronic pain G89.29 [facility] [id number] [place] [address] 65029- 3265 Aug, Medicare welcome exam Z00.00 [facility] [id number] [place] [address] 49263- 9495 Aug, [facility] [id number] [place] [address] 98689- 3391 Aug, Acute pyelonephritis N10 and Medicare welcome exam Z00.00 [facility] [id number] [place] [address] 51109 -4446 Aug, Dysuria R30.0 and Acute pyelonephritis N10 [facility] [id number] [place] [address] 61091- 5504 Aug, [facility] [id number] [place] [address] 08878- 1437 Aug, [facility] [id number] [place] [address] 67461- 9808 Aug, [facility] [address] [address]- 6399 Aug, [facility] [id number] [place] [address] 78806- 1112 Jul, [facility] [id number] [place] [address] 05045- 2848 Jul, Renal calculus, right N20.0 and Medicare welcome exam Z00.00 [facility] [id number] [place] [address] 80610 -6223 Jul, Dysuria R30.0 and Renal calculus, right N20.0 [facility] [id number] [place] [address] 17437- 9089 Jul, Medicare welcome exam Z00.00 [facility] [id number] [place] [address] 70214- 6985 Jun, Gastroesophageal reflux disease without esophagitis K21.9 and Generalized abdominal pain R10.84 [facility] [id number] [place] [address] 39995- 0611 Jun, Medicare welcome exam Z00.00 [facility] [id number] [place] [address] 43176- 3753 Jun, [facility] [id number] [place] [address] 53758- 1992 Jun, Medicare welcome exam Z00.00 and Encounter for screening mammogram for malignant neoplasm of breast Z12.31 [facility] [address] [address]- 1585 Jun, Chronic pain G89.29 [facility] [id number] [place] [address] 35103- 1881 May, [facility] [id number] [place] [address] 64954- 0643 May, Pelvic pain R10.2 [facility] [id number] [place] [address] 04171- 8819 May, Pelvic pain R10.2 [facility] [id number] [place] [address] 18429 -5077 May, Renal calculus, right N20.0 [facility] [id number] [place] [address] 61443- 9590 May, Hematuria, unspecified type R31.9 and Nephrolithiasis N20.0 [facility] [place] [id number] [place] [address] 43686 -1947 May, Dysuria R30.0 and Nephrolithiasis N20.0 [place] [id number] [place] [address] 98238- 0614 May, [facility] [id number] [place] [address] 07448 -7590 May, Abdominal pain R10.9 and Kidney stone N20.0 [place] [id number] [place] [address] 70572- 7192 May, [place] [id number] [place] [address] 96470- 1389 May, Chronic pain G89.29 and Panic attacks F41.0 [place] [id number] [place] [address] 11665- 3519 May, Urinary tract infection without hematuria, site unspecified N39.0 [place] [id number] [place] [address] 91634- 7985 Apr, Right lower quadrant abdominal pain R10.31 and Abnormal serum lipase level R74.8 [place] [id number] [place] [address] 86396- 0507 Apr, Recurrent urinary tract infection N39.0 [place] [id number] [place] [address] 96924- 7349 Apr, UTI symptoms R39.9 ; Recurrent urinary tract infection N39.0 and Pelvic pain R10.2 [place] [id number] [place] [address] 64207- 3194 08 Apr, 2017 Chronic pain G89.29 and Panic attacks F41.0 [place] [id number] [place] [address] 07377- 1598 Apr, Dysuria R30.0 [place] [id number] [place] [address] 47347- 7245 Apr, [facility] [id number] [place] [address] 28390- 3008 Apr, Dysuria R30.0 and Urinary tract infection without hematuria , site unspecified N39.0 [place] [id number] [place] [address] 30689- 7301 Mar, UTI symptoms R39.9 [place] [id number] [place] [address] 94215- 4756 Mar, [place] [id number] [place] [address] 89802- 7141 Mar, Panic attacks F41.0 and Chronic pain G89.29 [place] [id number] [place] [address] 77179- 5629 Mar, [place] [id number] [place] [address] 74055- 5213 Mar, Dysuria R30.0 [place] [id number] [place] [address] 51361- 3857 Mar, Dysuria R30.0 [place] [id number] [place] [address] 72442- 5677 Feb, Chronic pain G89.29 ; Shortness of breath R06.02 ; Weight loss R63.4 ; Encounter for immunization Z23 ; Bone pain M89.8X9 ; Right anterior knee pain M25.561 and Cough R05 [place] [id number] [place] [address] 43217- 9638 Feb, Shortness of breath R06.02 [facility] [id number] [place] [address] 11485- 2219 Feb, [place] [id number] [place] [address] 26590- 0034 Feb, Panic attacks F41.0 and Chronic pain G89.29 [place] [address] 44726- 5219 Feb, [place] [address] 61482- 0547 Feb, Panic attacks F41.0 ; Shortness of breath R06.02 and Encounter for immunization Z23 [place] [id number] [place] [address] 43487- 6062 Jan, [place] [address] 40854- 6916 Jan, Anxiety F41.9 and Chronic pain G89.29 [place] [address] 17277- 8813 Dec, Anxiety F41.9 and Chronic pain G89.29 [place] [id number] [place] [address] 92997- 6101 Nov, Chronic pain G89.29 [place] [id number] [place] [address] 53941- 5717 Nov, Anxiety F41.9 [place] [address] 65501- 1809 Nov, Chronic pain G89.29 ; Essential hypertension I10 and Other emphysema J43.8 [place] [id number] [place] [address] 60962- 1864 Oct, Anxiety F41.9 [place] [id number] [place] [address] 75027- 1471 Oct, [place] [address] [id number] [place] [address] 02895- 3138 Oct, Chronic pain G89.29 [facility] [id number] [place] [address] 95369- 1643 September, Recurrent UTI N39.0 ; Neuropathy G62.9 and Anxiety F41.9 [facility] [id number] [place] [address] 19760- 3799 September, [facility] [id number] [place] [address] 48788- 7322 September, Chronic pain G89.29 [facility] [id number] [place] [address] 45619- 4655 September, [facility] [id number] [place] [address] 45819- 8728 Aug, Post-traumatic stress disorder, chronic F43.12 ; Chronic urinary tract infection N39.0 ; Gastroesophageal reflux disease without esophagitis K21.9 ; Chronic pain G89.29 ; Essential hypertension I10 and Tobacco abuse Z72.0 [facility] [id number] [place] [address] 28283 -3611 Aug, [facility] [id number] [place] [address] 76132- 5563 Aug, Chronic pain G89.29 [facility] [id number] [place] [address] 18682- 8597 Aug, Insomnia, unspecified type G47.00 [facility] [id number] [place] [address] 23097- 2150 Aug, [facility] [id number] [place] [address] 10519- 4240 Jul, Chronic pain G89.29 [facility] [id number] [place] [address] 54262- 0338 Jul, [facility] [id number] [place] [address] 30813- 5549 Jul, [facility] [address] [address]- 8666 Jul, [facility] [id number] [place] [address] 74897- 9013 15 Jul, 2016 Recurrent UTI (urinary tract infection) N39.0 [facility] [id number] [place] [address] 74039- 9497 Jul, [facility] [id number] [place] [address] 10318- 0385 Jun, Chronic pain G89.29 [facility] [id number] [place] [address] 04405- 0454 Jun, [facility] [id number] [place] [address] 93229- 9453 Jun, [facility] [id number] [place] [address] 37453- 4644 May, Chronic pain G89.29 [facility] [address] [place] [address] 07420- 1202 May, Weight loss R63.4 and Shortness of breath R06.02 [facility] [address] [address]- 6930 May, Chronic pain G89.29 ; Weight loss R63.4 and Tobacco abuse Z72.0 [facility] [address] [address]- 9390 May, [facility] [address] [place] [address] 98359- 8887 May, Hypoxia R09.02 [facility] [address] [address]- 0425 May, [facility] [address] [place] [address]- 6468 May, Pulmonary emphysema, unspecified emphysema type J43.9 [facility] [id number] [place] [address] 16132 -4862 May, [facility] [id number] [place] [address] 45281- 2430 May, [facility] [id number] [place] [address] 85349- 1148 May, [facility] [address] 51715- 7435 May, Chronic pain G89.29 ; Encounter for immunization Z23 ; Right anterior knee pain M25.561 and Cough R05 [place] [address] 18441- 1927 Apr, Chronic pain G89.29 [facility] [id number] [place] [address] 47858- 8080 Apr, [facility] [id number] [place] [address] 04735- 4162 Apr, Generalized anxiety disorder F41.1 and Depression, unspecified depression type F32.9 [facility] [id number] [place] [address] 32692- 9183 Apr, Chronic pain G89.29 ; Hypokalemia E87.6 and Insomnia, unspecified type G47.00 [facility] [id number] [place] [address] 92595- 4193 Apr, [facility] [id number] [place] [address] 10791- 8923 Apr, Chronic pain G89.29 [facility] [id number] [place] [address] 95851- 5315 Apr, [facility] [id number] [place] [address] 65831- 3337 Mar, [facility] [id number] [place] [address] 65926- 3676 08 Nov, 2016 Insomnia, unspecified type G47.00 [facility] [id number] [address]- 5134 Mar, Chronic pain G89.29 [facility] [address], [place] [address]- 6923 Mar, [facility] [address] [address]- 3772 Feb, [facility] [address] [facility] [id number] [place] [address] 33682- 5322 Feb, [facility] [id number] [place] [address]- 6999 Feb, [facility] [id number] [place] [address] 96841- 2941 Feb, [facility] [id number] [place] [address] 45236- 2528 Feb, [facility] [id number], [place] [address]- 7602 29 Jan, 2016 [facility] [id number] [place] [address] 95356- 8745 26 Jan, 2015 [facility] [address] [address]- 2544 20 Jan, 2015 [facility] [address] [address] 2541 13 Sep, 2015 [facility] [id number] [address]- 2548 12 Jan, 2015 [facility] [id number] [address]- 2544 07 Sep, 2016 Chronic pain G89.29 [facility] [id number] [address]- 2542 01 Sep, 2016 Chronic pain G89.29 and Fibromyalgia M79.7 [facility] [id number] [place] [address] 76794- 5762 Dec, Depression, unspecified depression type F32.9 and Generalized anxiety disorder 300.02 [facility] [id number] [place] [address] 26312- 7011 Dec, Dysthymia F34.1 ; Insomnia, unspecified type G47.00 and Chronic pain G89.29 [facility] [id number] [place] [address] 37204- 7276 Dec, Chronic pain G89.29 [facility] [id number] [place] [address] 47696- 1332 Dec, Insomnia, unspecified type G47.00 [facility] [id number] [place] [address] 77668- 0045 Dec, Fibromyalgia M79.7 and Chronic pain G89.29 [facility] [id number] [place] [address] 51281- 6847 Dec, [facility] [id number] [place] [address] 70285- 6371 Dec, [facility] [id number] [place] [address] 09781- 9755 Dec, [facility] [id number] [place] [address] 67559- 6245 Dec, [facility] [id number] [place] [address] 91034- 6741 Dec, Chronic pain G89.29 [facility] [id number] [place] [address] 15184- 3060 Dec, [facility] [id number] [place] [address] 09458- 9999 Dec, [facility] [id number] [place] [address] 76571- 8676 Dec, [facility] [id number] [place] [address] 63465- 4617 Dec, Chronic pain G89.29 and Dysthymia F34.1 [place] [id number] [place] [address] 55574- 7750 Nov, [place] [address] 69837- 9765 Nov, Hypokalemia E87.6 and Chronic pain G89.29 [place] [address] 29683- 0746 Nov, Back pain M54.9 and Pain in right knee M25.561 [place] [id number] [place] [address] 16956- 8300 Nov, [place] [address] 55894- 9890 Nov, Chronic pain G89.29 [place] [address] 85409- 6851 Nov, Chronic pain G89.29 ; Weight loss R63.4 ; Bone pain M89.8X9 and Insomnia, unspecified type G47.00 [place] [address] [place] [id number] [place] [address] 92203- 6000 Nov, Chronic pain G89.29 [place] [address] [place] [id number] [place] [address] 90875- 7671 Nov, Chronic pain G89.29 [place] [address] [place] [id number] [place] [address] 22167- 6980 Oct, Chronic pain G89.29 [place] [address] [place] [id number] [place] [address] 23982- 9321 Oct, UTI symptoms R39.9 [place] [address] [place] [id number] [place] [address] 43445- 1861 Oct, Chronic pain G89.29 [place] [address] [place] [id number] [place] [address] 66014- 8544 Oct, Chronic pain G89.29 [facility] [id number] [address] Oct, Chronic pain G89.29 [facility] [address] [place] [id number] [place] [address] 12269- 5637 Oct, Right upper quadrant abdominal pain R10.11 [facility] [id number] [place] [address] 65585- 1691 Oct, Chronic pain G89.29 [facility] [address] [place] [id number] [place] [address] 32852- 7888 Oct, [facility] [address] [place] [id number] [place] [address] 12147- 1520 September, Chronic pain G89.29 [facility] [address] [place] [id number] [place] [address] 78766- 4700 September, Dysuria R30.0 and Urinary tract infection without hematuria , site unspecified N39.0 [facility] [id number] [place] [address] 10933- 0683 September, [facility] [address] [place] [id number] [place] [address] 64222- 6101 September, Dysuria R30.0 [facility] [id number] [place] [address] 05197- 9268 September, Chronic pain G89.29 [facility] [id number] [place] [address] 18659- 6898 September, Chronic pain G89.29 and Essential hypertension I10 [facility] [id number] [address] September, [facility] [address] [place] [id number] [place] [address] 20131- 6469 September, [facility] [id number] [place] [address] September, [facility] [address] [place] [id number] [place] [address] 16672- 1455 Aug, UTI symptoms R39.9 [facility] [address] [place] [id number] [place] [address] 79135- 5065 Aug, Dysuria R30.0 [facility] [address] [place] [id number] [place] [address] 08310- 9533 Aug, [facility] [id number] [place] [address] 28669- 5575 Aug, [facility] [id number] [place] [address] 90219- 9153 Aug, [facility] [id number] [place] [address] 97797- 5848 Aug, Chronic pain G89.29 [facility] [id number] [place] [address] 59766- 4412 Aug, Dysthymia F34.1 [facility] [id number] [place] [address] 71322- 6231 Aug, Conjunctivitis, unspecified conjunctivitis type, unspecified laterality H10.9 [facility] [id number] [place] [address] 88887- 4481 Jul, Chronic pain G89.29 ; Back pain M54.9 ; Tobacco abuse Z72.0 and Weight decrease R63.4 [facility] [id number] [place] [address] 53317- 9100 Jul, [facility] [id number] [place] [address] 19984- 2147 Jul, [facility] [id number] [place] [address] 71443- 4982 24 Jul, 2015 Chronic pain G89.29 [facility] [id number] [place] [address] 72104- 8028 Jul, [facility] [id number] [place] [address] 12857- 9025 21 Jul, 2015 [facility] [address] [address] 5479 18 Jul, 2015 [facility] [id number] [place] [address] 13945- 6254 Jul, [facility] [id number] [place] [address] 75490- 3514 Jul, Chronic pain G89.29 [facility] [id number] [place] [address] 20343- 1519 16 Jul, 2015 Chronic pain G89.29 [facility] [id number] [place] [address] 25631- 1935 15 Jul, 2015 [facility] [id number] [place] [address] 16538- 3363 Jul, [facility] [id number] [place] [address] 90495- 8572 Jul, [facility] [id number] [place] [address] 26939- 5808 Jul, [facility] [id number] [place] [address] 10436- 8318 Jun, [facility] [id number] [place] [address] 50993- 9005 Jun, Depression, unspecified depression type F32.9 [facility] [id number] [place] [address] 91282- 1799 Jun, Pain in right knee M25.561 [facility] [id number] [place] [address] 84294- 8964 24 Jun, 2015 Chronic pain G89.29 ; Back pain M54.9 ; Bone pain M89.8X9 and Weight loss R63.4 [facility] [address] [address]- 6737 Jun, [facility] [id number] [place] [address] 86120- 5791 May, [facility] [id number] [place] [address] 92779- 4017 May, UTI symptoms R39.9 ; Pain in right knee M25.561 ; Right low back pain, with sciatica presence unspecified M54.5 ; Right foot pain M79.671 ; Hypokalemia E87.6 and Screening, lipid Z13.220 [facility] [address] 75418- 4287 May, [facility] [address] 52154- 7888 May, [facility] [id number] [place] [address] 53789- 3113 Mar, [facility] [id number] [place] [address] 79298- 4131 Mar, [facility] [id number] [place] [address] 02784- 8766 Mar, Hypokalemia E87.6 [facility] [id number] [place] [address] 33176- 1755 Mar, Pain in right leg M79.604 ; Encounter for immunization Z23 ; Pain in right knee M25.561 and Hypokalemia E87.6 [facility] [id number] [place] [address] 31981- 4618 Jan, [facility] [id number] [place] [address] 44584- 254 Jan, [facility] [id number] [place] [address] 55047- 2304 Jan, Abdominal pain, generalized 789.07 [facility] [id number] [place] [address] 23477- 6840 Jan, Abdominal pain, generalized 789.07 [facility] [address] [place] [address]- 3477 Dec, [facility] [address] [address]- 9567 Dec, [facility] [address] [address]- 1266 Dec, [facility] [address] [address]- 5718 Nov, Hallux valgus 735.0 and Hammertoe 735.4 [facility] [address] [facility] [id number] [address]- 4233 Nov, [facility] [id number] [address]- 2507 Nov, Hallux valgus 735.0 and Hammer toe 735.4 [facility] [address], [place] [address]- 5004 Oct, [facility] [address] [address]- 2062 Oct, [facility] [id number] [place] [address] 94439- 3676 Oct, Pre-op evaluation V72.84 [facility] [address] [address]- 2955 Oct, [facility] [address] [address]- 2807 Oct, [facility] [id number] [address]- 9117 September, [facility] [address], [place] [address]- 6696 September, [facility] [id number] [address]- 6498 September, Hallux valgus (acquired) 735.0 and Other hammer toe ( acquired) 735.4 [facility] [place] [facility] [address] [id number] [place] [address]- 2446 14 Aug, 2014 [facility] [place] [facility] [address] [id number] [place] [address]- 6557 Aug, [facility] [place] [facility] [address] [id number] [place] [address]- 8117 Jul, [facility] [place] [facility] [address] [id number] [place] [address]- 5825 Jul, [facility] [place] [facility] [address] [id number] [place] [address]- 0543 Jul, [facility] [place] [facility] [address] [id number] [place] [address]- 2361 Jul, [facility] [place] [facility] [address] [id number] [place] [address]- 5884 Jul, [facility] [place] [facility] [address] [id number] [place] [address]- 7077 Jul, [facility] [place] [facility] [address] [id number] [place] [address]- 9914 Jul, [facility] [place] [facility] [address] [id number] [place] [address]- 4334 Jul, [facility] [place] [facility] [address] [id number] [place] [address]- 3675 Jun, [facility] [place] [facility] [address] [id number] [place] [address]- 4593 Jun, [facility] [place] [facility] [address] [id number] [place] [address]- 2524 Jun, [facility] [place] [facility] [address] [id number] [place] [address]- 5166 Jun, [facility] [place] [facility] [address] [id number] [place] [address]- 5296 Jun, [facility] [place] [facility] [address] [id number] [place] [address]- 0196 Jun, [facility] [place] [facility] [address] [id number] [place] [address]- 5313 Jun, [facility] [place] [facility] [address] [id number] [place] [address]- 6936 Jun, [facility] [place] [facility] [address] [id number] [place] [address]- 1151 Jun, [facility] [place] [facility] [address] [id number] [place] [address]- 2536 Jun, [facility] [place] [facility] [address] [id number] [place] [address]- 4371 May, [facility] [place] [facility] [address] [id number] [place] [address]- 0888 May, [facility] [place] [facility] [address] [id number] [place] [address]- 5345 May, [facility] [place] [facility] [address] [id number] [place] [address]- 9123 May, [facility] [place] [facility] [address] [id number] [place] [address]- 6527 May, [facility] [place] [facility] [address] [id number] [place] [address]- 3626 May, [facility] [place] [facility] [address] [id number] [place] [address]- 2935 May, [facility] [place] [facility] [address] [id number] [place] [address]- 6206 May, [facility] [place] [facility] [address] [id number] [place] [address]- 9162 May, [facility] [place] [facility] [address] [id number] [place] [address]- 4474 May, [facility] [place] [facility] [address] [id number] [place] [address]- 4585 May, [facility] [place] [facility] [address] [id number] [place] [address]- 2208 May, [facility] [place] [facility] [address] [id number] [place] [address]- 9134 May, [facility] [place] [facility] [address] [id number] [place] [address]- 9837 May, [facility] [place] [facility] [address] [id number] [place] [address]- 6109 May, [facility] [place] [facility] [address] [id number] [place] [address]- 4796 May, [facility] [place] [facility] [address] [id number] [place] [address]- 5846 May, [facility] [place] [facility] [address] [id number] [place] [address]- 7920 May, [facility] [place] [facility] [address] [id number] [place] [address]- 6909 Apr, [facility] [place] [facility] [address] [id number] [place] [address]- 3420 Apr, [facility] [place] [facility] [address] [id number] [place] [address]- 7795 Apr, [facility] [place] [facility] [address] [id number] [place] [address]- 9358 Apr, [facility] [place] [facility] [address] [id number] [place] [address]- 0629 Apr, [facility] [place] [facility] [address] [id number] [place] [address]- 2735 Apr, [facility] [place] [facility] [address] [id number] [place] [address]- 2935 Apr, [facility] [place] [facility] [address] [id number] [place] [address]- 4815 Apr, [facility] [place] [facility] [address] [id number], [place] [address]- 7597 Apr, [facility] [place] [facility] [address] [id number] [place] [address]- 9401 Mar, [facility] [place] [facility] [address] [id number] [place] 5465 Mar, [facility] [place] [facility] [address] [id number] [place] [address]- 3077 Mar, [facility] [place] [facility] [address] [id number] [place] [address]- 2796 Mar, [facility] [place] [facility] [address] [id number] [place] [address]- 5785 Mar, [facility] [place] [facility] [address] [id number] [place] [address]- 0864 Feb, [facility] [place] [facility] [address] [id number] [place] [address]- 7360 Feb, [facility] [place] [facility] [address] [id number] [place] [address]- 4196 Feb, [facility] [place] [facility] [address] [id number] [place] [address]- 8953 Feb, [facility] [place] [facility] [address] [id number], [place] [address]- 3573 Feb, [facility] [place] [facility] [address] [id number], [place] [address]- 2747 Feb, [facility] [place] [facility] [address] [id number], [place] [address]- 7083 Feb, [facility] [place] [facility] [address] [id number], [place] [address]- 7318 Feb, [facility] [place] [facility] [address] [id number], [place] [address]- 1365 Feb, [facility] [place] [facility] [address] [id number], [place] [address]- 7860 Feb, [facility] [place] [facility] [address] [id number] [place] [address]- 3014 08 Feb, 2013 [facility] [place] [facility] [address] [id number] [place] [address]- 9851 08 Feb, 2014 [facility] [place] [facility] [address] [id number] [place] [address]- 5793 Feb, 2013 [facility] [place] [facility] [address] [id number] [place] [address]- 6053 Feb, 2013 [facility] [place] [facility] [address] [id number] [place] [address]- 3603 Feb, 2013 [facility] [place] [facility] [address] [id number] [place] [address]- 4366 Feb, [facility] [place] [facility] [address] [id number] [place] [address]- 0418 23 Jan, 2013 [facility] [place] [facility] [address] [id number] [place] [address]- 9163 23 Jan, 2013 [facility] [place] [facility] [address] [id number] [place] [address]- 3096 20 Jan, 2013 [facility] [place] [facility] [address] [id number] [place] [address]- 1761 19 Jan, 2013 [facility] [place] [facility] [address] [id number] [place] [address]- 7293 11 Jan, 2013 [facility] [place] [facility] [address] [id number] [place] [address]- 0985 11 Jan, 2013 [facility] [place] [facility] [address] [id number] [place] [address]- 8283 03 Jan, 2013 [facility] [place] [facility] [address] [id number] [place] [address]- 2014 Jan, 2013 [facility] [place] [facility] [address] [id number] [place] [address]- 9725 Dec, [facility] [place] [facility] [address] [id number] [place] [address]- 8904 Dec, [facility] [place] [facility] [address] [id number] [place] [address]- 4114 Nov, [facility] [place] [facility] [address] [id number] [place] [address]- 2064 Nov, [facility] [place] [facility] [address] [id number] [place] [address]- 4274 Nov, [facility] [place] [facility] [address] [id number] [place] [address]- 9221 Nov, [facility] [place] [facility] [address] [id number] [place] [address]- 9532 Nov, [facility] [place] [facility] [address] [id number] [place] [address]- 1868 Nov, [facility] [place] [facility] [address] [id number] [place] [address]- 5400 Nov, [facility] [place] [facility] [address] [id number] [place] [address]- 7235 Nov, [facility] [place] [facility] [address] [id number] [place] [address]- 5309 Nov, [facility] [place] [facility] [address] [id number] [place] [address]- 3257 Oct, [facility] [place] [facility] [address] [id number] [place] [address]- 0387 Oct, [facility] [place] [facility] [address] [id number] [place] [address]- 1752 Oct, [facility] [place] [facility] [address] [id number] [place] [address]- 8805 Oct, [facility] [place] [facility] [address] [id number] [place] [address]- 2765 Oct, [facility] [place] [facility] [address] [id number] [place] [address]- 5176 Oct, [facility] [place] [facility] [address] [id number] [place] [address]- 0814 September, [facility] [address] [id number] [place] [address]- 2522 September, [facility] [place] [facility] [address] [id number] [place] [address]- 9485 September, [facility] [place] [facility] [address] [id number] [place] [address]- 4128 September, [facility] [place] [facility] [address] [id number] [place] [address]- 4117 September, [facility] [place] [facility] [address] [id number] [place] [address]- 2944 September, [facility] [place] [facility] [address] [id number] [place] [address]- 7865 September, [facility] [address] [id number] [place] [address]- 6976 September, [facility] [place] [facility] [address] [id number] [place] [address]- 6799 September, [facility] [place] [facility] [address] [id number] [place] [address]- 8025 September, [facility] [place] [facility] [address] [id number] [place] [address]- 6947 September, [facility] [place] [facility] [address] [id number] [place] [address]- 3449 September, [facility] [place] [facility] [address] [id number] [place] [address]- 9837 September, [facility] [place] [facility] [address] [id number] [place] [address]- 0194 September, [facility] [place] [facility] [address] [id number] [place] [address]- 9652 September, [facility] [place] [facility] [address] [id number] [place] [address]- 7257 September, [facility] [place] [facility] [address] [id number] [place] [address]- 0712 September, [facility] [place] [facility] [address] [id number] [place] [address]- 9717 September, [facility] [place] [facility] [address] [id number] [place] [address]- 0972 September, [facility] [place] [facility] [address] [id number] [place] [address]- 4681 September, [facility] [place] [facility] [address] [id number] [place] [address]- 8458 Aug, [facility] [place] [facility] [address] [id number] [place] [address]- 0855 Aug, [facility] [place] [facility] [address] [id number] [place] [address]- 2739 Aug, [facility] [place] [facility] [address] [id number] [place] [address]- 6023 Aug, [facility] [place] [facility] [address] [id number] [place] [address]- 3852 Aug, [facility] [place] [facility] [address] [id number] [place] [address]- 8949 Aug, [facility] [place] [facility] [address] [id number] [place] [address]- 0066 Aug, [facility] [place] [facility] [address] [id number] [place] [address]- 6268 16 Aug, 2013 [facility] [place] [facility] [address] [id number] [place] [address]- 4578 15 Aug, 2013 [facility] [place] [facility] [address] [id number] [place] [address]- 7170 15 Aug, 2013 [facility] [place] [facility] [address] [id number] [place] [address]- 2645 14 Aug, 2013 [facility] [place] [facility] [address] [id number] [place] [address]- 8332 05 Aug, 2013 [facility] [place] [facility] [address] [id number] [place] [address]- 3175 05 Aug, 2013 [facility] [place] [facility] [address] [id number] [place] [address] Aug, [facility] [place] [facility] [address] [id number] [place] [address] Aug, [facility] [place] [facility] [address] [id number] [place] [address] Jul, [facility] [place] [facility] [address] [id number] [place] [address] Jul, [facility] [place] [address] [id number] [place] [address] Jul, [facility] [place] [facility] [address] [id number] [place] [address] Jul, [facility] [place] [address] [id number] [place] [address] Jul, [facility] [place] [facility] [address] [id number] [place] [address] Jul, [facility] [place] [facility] [address] [id number] [place] [address] Jul, [facility] [place] [facility] [address] [id number] [place] [address] Jul, [facility] [place] [address] [id number] [place] [address] Jul, [facility] [place] [address] [id number] [place] [address] Jul, [facility] [place] [address] [id number] [place] [address] Jul, [facility] [place] [address] [id number] [place] [address]- [address] Jul, [facility] [place] [address] [id number] [place] [address] Jul, [facility] [place] [facility] [address] [id number] [place] [address]- [address] Jul, [facility] [address] [id number] [place] [address] Jul, [facility] [address] [id number] [place] [address]- [address] Jun, [facility] [place] [facility] [address] [id number] [place] [address]- [address] Jun, [facility] [place] [address] [id number] [place] [address]- [address] Jun, [facility] [address] [id number] [place] [address]- [address]676 Jun, [facility] [place] [address] [id number] [place] [address]- 1404 Jun, [facility] [address] [id number] [place] [address]- [address] Jun, [facility] [address] [id number] [place] [address]- [address] May, [facility] [address] [id number] [place] [address]- [address]874 May, [facility] [address] [id number] [place] [address]- [address] May, [facility] [address] [id number] [place] [address]- 1542 May, [facility] [place] [address] [id number] [place] [address]- [address]129 May, [facility] [address] [id number] [place] [address]- [address] May, [facility] [address] [id number] [place] [address] May, [facility] [address] [id number] [place] [address]- [address]87 May, [facility] [address] [id number] [place] [address]- 74[address] May, [facility] [address] [id number] [place] [address]- [address] May, [facility] [address] [id number] [place] [address]- 8146 May, [facility] [address] [id number] [place] [address]- 8537 May, [facility] [address] [id number] [place] [address]- [address] May, [facility] [address] [id number] [place] [address]- 3536 May, [facility] [address] [id number] [place] [address]- [address]190 May, [facility] [address] [id number] [place] [address]- 92[address] Apr, [facility] [address] [id number] [place] [address]- 9818 Apr, [facility] [address] [id number] [place] [address]- [address] Apr, [facility] [address] [id number], [place] [address] Apr, [facility] [address] [id number] [place] [address]- [address]37 Apr, [facility] [address] [id number] [place] [address]- 8741 Apr, [facility] [address] [id number] [place] [address]- [address]259 Apr, [facility] [address] [id number] [place] [address]- [address]300 Apr, [facility] [address] [id number] [place] [address]- 295[address] Apr, [facility] [address] [id number] [place] [address]- 9385 Apr, [facility] [address] [id number] [place] [address]- [address] Mar, [facility] [address] [id number] [place] [address]- [address]76 Mar, [facility] [address] [id number] [place] [address]- 1847 Mar, [facility] [address] [id number] [place] [address]- 4691 Mar, [facility] [address] [id number] [place] [address]- 0236 Mar, [facility] [address] [id number] [place] [address]- 8649 Mar, [facility] [address] [id number] [place] [address] Mar, [facility] [address] [facility] [id number] [place] [address]- [address]60 Mar, [facility] [address] [id number] [place] [address]- 8061 Mar, [facility] [address] [id number], [place] [address] Mar, [facility] [address] [id number] [place] [address]- [address] Mar, [facility] [facility] [address] [id number] [place] [address] Mar, [facility] [address] [id number], [place] [address] Mar, [facility] [place] [address] [id number] [place] [address]- 6804 Mar, [facility] [place] [address] [id number] [place] [address]- 2305 Mar, [facility] [place] [facility] [address] [id number] [place] [address]- 3553 Mar, [facility] [place] [address] [id number] [place] [address]- 7651 Mar, [facility] [place] [facility] [address] [id number] [place] [address] 3039 14 Mar, 2013 [facility] [address] [id number] [place] [address]- 2019 Mar, [facility] [address] [id number] [place] [address]- 0752 Mar, [facility] [address] [id number] [place] [address]- 8562 Mar, [facility] [address] [id number] [place] [address]- 2804 Mar, [facility] [place] [address] [id number] [place] [address]- 0752 Mar, [facility] [address] [id number] [place] [address]- 7253 Feb, [facility] [address] [id number], [place] [address]- 8964 18 Feb, 2013 [facility] [address] [id number] [place] [address]- 8136 16 Feb, 2013 [facility] [address] [id number] [place] [address]- 7531 16 Feb, 2013 [facility] [address] [id number] [place] [address]- 4563 15 Feb, 2013 [facility] [address] [id number], [place] [address]- 3558 Feb, [facility] [address] [id number] [place] [address]- 7797 Feb, [facility] [address] [id number] [place] [address]- 8835 Feb, [facility] [address] [id number] [place] [address]- 1078 Feb, [facility] [address] [id number] [place] [address]- 2342 Feb, [facility] [address] [id number] [place] [address]- 5083 30 Jan, 2013 [facility] [address] [id number] [place] [address]- 8726 26 Jan, 2013 [facility] [address] [id number] [place] [address]- 1555 24 Jan, 2013 [facility] [address] [id number] [place] [address]- 2920 23 Jan, 2013 [facility] [address] [id number] [place] [address]- 7990 17 Jan, 2013 [facility] [address] [id number] [place] [address]- 2236 Dec, [facility] [address] [id number] [place] [address]- 4747 Dec, [facility] [address] [id number] [place] [address]- 2986 16 Dec, 2012 [facility] [address] [id number] [place] [address]- 4919 15 Dec, 2012 [facility] [address] [id number] [place] [address]- 2188 14 Dec, 2012 [facility] [address] [id number] [place] [address]- 0064 Dec, [facility] [address] [id number] [place] [address]- 2546 Dec, [facility] [address] [id number] [place] [address]- 0276 Nov, [facility] [address] [id number] [place] [address]- 2546 Nov, [facility] [address] [id number] [place] [address]- 2546 Nov, [facility] [address] [id number] [place] [address]- 2546 Nov, [facility] [address] [id number] [place] [address]- 2546 Nov, [facility] [address] [id number] [place] [address]- 2546 Oct, [facility] [address] [id number] [place] [address]- 5426 Oct, [facility] [address] [id number] [place] [address]- 2546 Oct, [facility] [address] [id number] [place] [address]- 5036 September, [facility] [address] [id number] [place] [address]- 2546 September, [facility] [address] [id number] [place] [address]- 2546 September, [facility] [address] [id number] [place] [address]- 2546 September, [facility] [address] [id number] [place] [address]- 2546 September, [facility] [address] [id number] [place] [address]- 2546 September, [facility] [address] [id number] [place] [address] September, [facility] [address] [id number] [place] [address]- 9172 30 Aug, 2012 [facility] [address] [id number] [place] [address]- 3408 23 Aug, 2012 [facility] [address] [id number] [place] [address]- 7631 Aug, [facility] [address] [id number] [place] [address]- 4191 29 Jul, 2012 [facility] [address] [id number] [place] [address]- 2849 27 Jul, 2012 [facility] [address] [id number] [place] [address]- 4827 26 Jul, 2012 [facility] [address] [id number] [place] [address]- 6083 Jul, [facility] [address] [id number] [place] [address]- 1387 18 Jul, 2012 [facility] [address] [id number] [place] [address]- 6963 18 Jul, 2012 [facility] [address] [id number] [place] [address]- 8274 Jul, [facility] [address] [id number] [place] [address]- 2817 Jun, [facility] [address] [id number] [place] [address]- 0925 Jun, [facility] [address] [id number] [place] [address]- 0167 Jun, [facility] [address] [id number] [place] [address]- 1644 20 Jun, 2012 [facility] [address] [id number] [place] [address]- 3521 15 Jun, 2012 [facility] [address] [id number] [place] [address]- 4006 15 Jun, 2012 [facility] [address] [id number] [place] [address]- 6026 Jun, [facility] [address] [id number] [place] [address] 2546 Jun, [facility] [address] [id number] [place] [address] 2546 Jun, [facility] [address] [id number] [place] [address]- 2546 Jun, [facility] [address] [id number] [place] [address]- 9782 May, [facility] [address] [id number] [place] [address]- 1479 May, [facility] [address] [id number] [place] [address]- 9837 May, [facility] [address] [id number] [place] [address]- 9184 May, [facility] [address] [id number] [place] [address]- 7201 May, [facility] [address] [id number] [place] [address]- 7444 May, [facility] [address] [id number] [place] [address]- 9539 Apr, [facility] [address] [id number] [place] [address]- 2548 Apr, [facility] [address] [id number] [place] [address]- 9206 Apr, [facility] [address] [id number] [place] [address]- 2546 Apr, [facility] [address] [id number] [place] [address]- 8513 Apr, [facility] [address] [id number] [place] [address]- 8536 Apr, [facility] [address] [id number] [place] [address]- 4625 Apr, [facility] [address] [id number] [place] [address]- 0348 Mar, [facility] [address] [id number] [place] [address]- 7466 Mar, [facility] [address] [id number] [place] [address]- 2471 Mar, [facility] [address] [id number] [place] [address]- 1983 Mar, [facility] [address] [id number] [place] [address]- 8741 Mar, [facility] [address] [id number] [place] [address]- 5575 Mar, [facility] [address] [id number] [place] [address]- 5917 Mar, [facility] [address] [id number], [place] [address]- 0880 Mar, [facility] [address] [id number], [place] [address]- 7318 Mar, [facility] [address] [id number], [place] [address]- 1099 Mar, [facility] [address] [id number] [place] [address]- 9265 Mar, [facility] [address] [id number], [place] [address]- 2633 Mar, [facility] [address] [id number] [place] [address]- 0255 Mar, [facility] [address] [id number] [place] [address]- 1236 Mar, [facility] [address] [id number] [place] [address]- 0473 Mar, [facility] [address] [id number] [place] [address]- 4875 Mar, [facility] [address] [facility] [id number] [place] [address]- 4768 Mar, [facility] [address] [id number] [place] [address]- 0529 Feb, [facility] [address] [id number] [place] 1117 Feb, [facility] [address] [id number] [place] [address]- 4948 Feb, [facility] [address] [facility] [id number] [place] [address]- 1191 Feb, [facility] [address] [id number] [place] [address]- 6938 Feb, [facility] [address] [id number] [place] [address]- 3557 Feb, [facility] [address] [facility] [id number] [place] [address]- 8801 Feb, [facility] [address] [facility] [id number] [place] [address]- 5125 Feb, [facility] [address] [facility] [id number], [place] [address]- 7507 Feb, [facility] [address] [id number] [place] [address]- 4585 Feb, [facility] [address] [facility] [id number] [place] [address]- 6815 Feb, [facility] [address] [facility] [id number], [place] [address]- 2110 Jan, [facility] [address] [id number] [place] [address]- 9573 25 Jan, 2011 [facility] [address] [id number] [place] [address]- 2576 13 Jan, 2012 [facility] [address] [id number] [place] [address] 2546 12 Jan, 2012 [facility] [address] [id number] [place] [address]- 7116 07 Jan, 2012 [facility] [address] [id number] [place] [address]- 0433 31 Dec, 2011 [facility] [address] [id number] [place] [address]- 3551 24 Dec, 2011 [facility] [address] [id number] [place] [address]- 6091 Dec, [facility] [address] [id number] [place] [address]- 2553 Dec, [facility] [address] [id number] [place] [address]- 4895 16 Dec, 2011 [facility] [address] [id number] [place] [address]- 4248 Dec, [facility] [address] [id number] [place] [address]- 8068 Dec, [facility] [address] [id number] [place] [address]- 2995 Dec, [facility] [address] [id number] [place] [address]- 2059 30 Nov, 2011 [facility] [address] [id number] [place] [address]- 5839 Nov, [facility] [place] [facility] [address] [id number] [place] [address]- 9938 Nov, [facility] [place] [facility] [address] [id number] [place] [address]- 2569 Nov, [facility] [place] [facility] [address] [id number] [place] [address]- 0428 Nov, [facility] [place] [facility] [address] [id number] [place] [address]- 5486 Oct, [facility] [facility] [address] [id number] [place] [address] 2546 Oct, [facility] [address] [id number] [place] [address]- 6876 September, [facility] [place] [facility] [address] [id number] [place] [address]- 0941 September, [facility] [facility] [address] [id number] [place] [address]- 6526 September, [facility] [place] [facility] [address] [id number] [place] [address]- 3016 September, [facility] [place] [facility] [address] [id number] [place] [address]- 1059 September, [facility] [facility] [address] [id number] [place] [address]- 0723 September, [facility] [address] [id number] [place] [address]- 6996 September, [facility] [address] [id number] [place] [address]- 6796 September, [facility] [place] [facility] [address] [id number] [place] [address]- 9696 September, [facility] [place] [facility] [address] [id number] [place] [address]- 7156 September, [facility] [place] [facility] [address] [id number] [place] [address]- 8976 September, [facility] [place] [facility] [address] [id number] [place] [address]- 3596 September, [facility] [place] [facility] [address] [id number] [place] [address]- 4316 September, [facility] [address] [id number] [place] [address]- 8678 September, [facility] [address] [id number] [place] [address]- 5566 24 Aug, 2011 [facility] [address] [id number] [place] [address]- 9297 20 Aug, 2011 [facility] [address] [id number] [place] [address]- 6811 13 Aug, 2011 [facility] [address] [id number] [place] [address]- 9678 11 Aug, 2011 [facility] [address] [id number] [place] [address]- 2549 23 Jul, 2011 [facility] [id number] [place] [address]- 0359 13 Jul, 2011 [facility] [address] [id number] [address]- 5261 13 Jul, 2011 [facility] [address] [id number] [place] [address]- 1291 28 Jun, [address] [facility] [address] [id number] [id number] 26 Jun, 2011 [facility] [id number] [place] [address]- 4632 13 Jun, 2011 [facility] [address] [id number], [place] [address]- 9226 10 Jun, 2011 [facility] [address] [id number], [place] [address]- 8016 07 Jun, 2011 [facility] [address] [facility] [id number], [place] [address]- 3636 07 Jun, 2011 [facility] [address] [id number], [place] [address]- 7256 03 Jun, 2011 [facility] [address] [id number] [place] [address]- 3609 02 Jun, 2011 [facility] [place] [facility] [address] [id number] [place] [address]- 5016 May, [facility] [place] [facility] [address] [id number] [place] [address]- 3311 May, [facility] [place] [facility] [address] [id number] [place] [address]- 3886 May, [facility] [address] [id number] [place] [address]- 3283 May, [facility] [place] [facility] [address] [id number] [place] [address]- 0381 May, [facility] [place] [facility] [address] [id number] [place] [address]- 2241 May, [facility] [place] [facility] [address] [id number] [place] [address]- 5963 May, [facility] [place] [facility] [address] [id number] [place] [address]- 7684 May, [facility] [place] [facility] [address] [id number] [place] [address]- 3281 May, [facility] [place] [facility] [address] [id number] [place] [address]- 5446 May, [facility] [place] [facility] [address] [id number] [place] [address]- 8428 17 May, 2011 [facility] [place] [facility] [address] [id number] [place] [address]- 8384 13 May, 2011 [facility] [place] [facility] [address] [id number] [place] [address]- 9246 12 May, 2011 [facility] [place] [facility] [address] [id number] [place] [address]- 9416 06 May, 2011 [facility] [place] [facility] [address] [id number] [place] [address]- 4242 30 Apr, 2011 [facility] [place] [facility] [address] [id number] [place] [address]- 9156 16 Apr, 2011 [facility] [place] [facility] [address] [id number] [place] [address]- 6896 05 Apr, 2011 [facility] [place] [facility] [address] [id number] [place] [address]- 9806 17 Mar, 2011 [facility] [place] [facility] [address] [id number] [place] [address]- 9270 Mar, [facility] [place] [facility] [address] [id number] [place] [address], [place]- 1723 31 Feb, 2011 [facility] [place] [facility] [address] [id number] [place] [address]- 1738 Feb, [facility] [place] [facility] [address] [id number] [place] [address]- 2560 Feb, [facility] [place] [facility] [address] [id number] [place] [address]- 6842 20 Feb, 2011 [facility] [place] [facility] [address] [id number] [place] [address]- 6614 13 Feb, 2011 [facility] [place] [facility] [address] [id number] [place] [address]- 3444 28 Apr, 2010 [facility] [place] [facility] [address] [id number] [place] [address] 22 Apr, 2010 [facility] [place] [facility] [address] [id number] [place] [address] 16 Apr, 2010 [facility] [place] [facility] [address] [id number] [place] [address] 15 Apr, 2010 [facility] [place] [facility] [address] [id number] [place] 15 Apr, 2010 [facility] [place] [facility] [address] [id number] [place] [address] Apr, [facility] [place] [facility] [id number] [address] Mar, [facility] [id number] [address] Mar, [facility] [id number] [address] Mar, [facility] [id number] [place] [id number] 2548 Feb, [facility] [address] [facility] [id number] [address] [address] Feb, [facility] [id number] [place] [id number]- [address] Feb, [facility] [id number] [place] [address] [id number]- [address] Feb, [facility] [id number] [place] [address] Dec, [facility] [id number] [address] Dec, [facility] [id number] [place] [address] [id number]- [address] Oct, [facility] [id number] [address] Mar, [facility] [id number] [address] Mar, [facility] [id number], [place] [address] September, IMMUNIZATIONS No Known Immunizations SOCIAL HISTORY Never Assessed REASON FOR VISIT High blood pressure, PT has been in sever pain around the abdominal area with diarrhiaFlorinda MONTGOMERY PLAN OF CARE Activity Details Follow Up prn Reason: Pending Test UA W/CULTURE IF INDICATED (IN HOUSE) VITAL SIGNS Height 64 in 2017-11-27 Weight 126.2 lbs 2017-11-27 Temperature 97.5 degrees Fahrenheit 2017-11-27 Heart Rate 66 bpm 2017-11-27 Respiratory Rate 18 2017-11-27 Oximetry 98 % 2017-11-27 BMI 21.66 kg/m2 2017-11-27 Blood pressure systolic 149 mmHg 2017-11-27 Blood pressure diastolic 98 mmHg 2017-11-27 MEDICATIONS Medication Instructions Dosage Frequency Start Date End Date Duration Status Bentyl 20 mg Orally Four times a day 1 tablet 6h Active Lisinopril 20 MG Orally Once a day 1 tablet 24h September, 30 days Active Ventolin HFA 108 (90 Base) MCG/ACT Inhalation every 4 hrs 2 puffs as needed 4h Nov, Active Neurontin 100 mg Orally 3 times a day 1 capsule 8h September, 30 days Active Fluticasone Propionate 50 MCG/ACT Nasally twice a day 1 spray in each nostril 12h Feb, 30 day(s) Active Toprol XL 50 mg Orally 2 times a day 1 tablet 12h Aug, Active Ciprofloxacin HCl 500 mg Orally every 12 hrs 1 tablet 12h Nov, Nov, 10 day(s) Active Pantoprazole Sodium 40 MG Orally Once a day 1 tablet 24h 14 Jun, 2017 30 days Active Amlodipine Besylate 5 mg Orally Once a day 1 tablet 24h Nov, 30 day(s) Active Robaxin 500 mg Orally 4 times a day 1 tablet 6h 30 Active Acetaminophen-Codeine #3 300-30 MG Orally every 6 hrs 1 tablet as needed 6h Oct, 28 days Active Lansoprazole 30 MG Orally Once a day 1 capsule 24h 30 days Active Macrobid 100 MG TAKE ONE CAPSULE BY MOUTH ONCE DAILY WITH FOOD 90 Active Chlordiazepoxide HCl 10 MG Orally Three times a day 2 capsules 8h Aug, 28 days Active RESULTS No Results PROCEDURES Procedure Date Ordered Result Body Site URINALYSIS, AUTO, W/O SCOPE November 27, 2017 [facility] November 27, 2017 [facility] VISIT ESTABLISHED PATIENT November 27, 2017 [place]* November 27, 2017 INSTRUCTIONS MEDICATIONS ADMINISTERED No Known Medications [...]
--- NOTE | 2018-02-12 21:45 | Cardiology History & Physical ---
HPI-Cardiology Cardiology Consultation Date of Consultation 02/12/18 Date of Admission Time Seen by Provider: 21:43 Indication: Chest pain HPI 67 years old lady with history of hypertension, hyperlipidemia and carotid stenosis. 7 having chest pain, described it as burning sensation in the retrosternal area with bilateral arm pain, came into the emergency room. Given nitroglycerin, pain has improved slightly but still having some active chest discomfort, second set of troponin was elevated, had minimal EKG changes. She denied any palpitation, no syncope or near syncopal episode. Patient is a heavy smoker, smoked until the day of admission. She has history of COPD and dyspnea on exertion. Gastritis and esophagitis. PMH-Cardiology Immunizations Up To Date Tetanus Booster (DTap): Less than 5yrs Date of Pneumonia Vaccine: Feb 27, 2017 Date of Influenza Vaccine: Feb 27, 2017 Seasonal Allergies Seasonal Allergies: Yes Surgeries Yes (ADHESIOLYSIS X3, LEFT FOOT X2, C/S X2, HYSTERECTOMY, RIGHT KNEE) Hysterectomy, Appendectomy, Tonsillectomy, Section Respiratory Yes Cardiovascular Yes Palpitations, Hypertension Neurological No Headaches /Migraines 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 System Hx 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 Disorders: No Sexually Transmitted Disease: No HIV/AIDS: No Genitourinary Yes Kidney Infection, Kidney Stones, UTI-Chronic Gastrointestinal Yes Gastroesophageal Reflux, Chronic Constipation, Irritable Bowel Musculoskeletal Yes ("KNEE AND BACK PROBLEMS" "BULGING DISCS" ) Degenerate Disk Disease, Osteoporosis, Arthritis, Fibromyalgia, Chronic Back Pain Endocrine No HEENT No Loss of Vision: Bilateral Hearing Impairment: Denies Cancer No Psychosocial Yes (Pt states she had Bulemia years ago and lowest weight was 94 lbs ) Anxiety, PTSD, Depression Integumentary No Blood Transfusions Yes (HX OF ANEMIA) Adverse Rxn to Transfusion: No (HAS FLUSHING BUT NO REACTION) Social History Patient Social History Marrital Status: Employed/Student: retired Alcohol Use: Denies Use Recreational Drug Use: No Smoking: Current every day smoker Dip or chew tobacco?: No Recent Foreign Travel: No Contact w/other who traveled: No Recent Infectious Disease Expo: No Family Hx Significant Family History: CAD Under 55 Years Old, Hypertension Family History: Abdominal aortic aneurysm Alzheimer's disease 19 MOTHER Cardiovascular disease 19 FATHER ( AT 46 FROM HEART ATTACK) G8 SISTER Hypercholesterolemia 19 FATHER Hypertension 19 FATHER 19 MOTHER Myocardial infarction 19 FATHER Thyroid disease 19 MOTHER G8 SISTER ROS-Cardiology Review of Systems General: No Chills, No Night Sweats; Fatigue; No Malaise, No Appetite HEENT: No Head Aches, No Visual Changes, No Eye Pain, No Ear Pain, No Dysphasia , No Sinus Congestion, No Post Nasal Drip, No Sore Throat Pulmonary: Dyspnea; No Cough, No Pleuritic Chest Pain Cardiovascular: Chest Pain; No: Palpitations, Orthopnea, Paroxysmal Noc. Dyspnea, Edema, Lt Headedness Gastrointestinal: No: Nausea, Vomiting, Abdominal Pain, Diarrhea, Constipation , Melena, Hematochezia Genitourinary: No Dysuria, No Frequency, No Incontinence, No Hematuria, No Retention Musculoskeletal: neck pain, back pain; No: shoulder pain, arm pain, hand pain, leg pain, foot pain Neurological: No: Weakness, Numbness, Incoordination, Change in speech, Confusion, Seizures Home Medications & Allergies Allergies: Coded Allergies: Sulfa (Sulfonamide Antibiotics) (Verified Allergy, Unknown, 01/13/18) adhesive (Verified Allergy, Unknown, 12/31/17) fentanyl adhesive meperidine (Verified Allergy, Unknown, HALLUCINATIONS, 12/31/17) pregabalin (Verified Allergy, Unknown, 12/31/17) Home Medication List Reviewed: Yes Exam-Cardiology Vital Signs Vital Signs Date Time Temp Pulse Resp B/P (MAP) Pulse Ox O2 Delivery O2 Flow Rate FiO2 02/12/18 18:59 99 Room Air 02/12/18 18:20 96.2 61 17 124/91 (102) Exam General Appearance: Alert, Oriented X3, Cooperative, No Acute Distress HEENT: Atraumatic, PERRLA Respiratory: Clear to Auscultation, Normal Air Movement Cardiovascular: Regular Rate, Normal S1, Normal S2, No Murmurs Abdominal: Normal Bowel Sounds, Soft, No Tenderness, No Hepatosplenomegaly, No Masses Extremities: No Clubbing, No Cyanosis, No Edema, Normal Pulses, No Tenderness/ Swelling Skin: No Rashes, No Breakdown, No Significant Lesion Neuro: Normal Gait, Normal Speech, Strength at 5/5 X4 Ext, Normal Tone, Sensation Intact Psych/Mental Status: Mental Status NL, Mood NL Results Labs Labs Laboratory Tests 02/12/18 18:30: White Blood Count 5.6, Red Blood Count 3.70L, Hemoglobin 12.8, Hematocrit 38, Mean Corpuscular Volume 104H, Mean Corpuscular Hemoglobin 35H, Mean Corpuscular Hemoglobin Concent 33, Red Cell Distribution Width 13.3, Platelet Count 254, Mean Platelet Volume 9.4, Neutrophils (%) (Auto) 45, Lymphocytes (%) (Auto) 41, Monocytes (%) (Auto) 12, Eosinophils (%) (Auto) 2, Basophils (%) (Auto) 1, Neutrophils # (Auto) 2.5, Lymphocytes # (Auto) 2.3, Monocytes # (Auto) 0.6, Eosinophils # (Auto) 0.1, Basophils # (Auto) 0.0, Prothrombin Time 12.2, INR Comment 0.9, Activated Partial Thromboplast Time 26, D-Dimer 2.57H, Sodium Level 131L, Potassium Level 3.6, Chloride Level 98, Carbon Dioxide Level 23, Anion Gap 10, Blood Urea Nitrogen 9, Creatinine 0.85, Estimat Glomerular Filtration Rate > 60, BUN/Creatinine Ratio 11, Glucose Level 115H, Calcium Level 9.2, Corrected Calcium 9.2, Magnesium Level 2.0, Total Bilirubin 0.3, Aspartate Amino Transf (AST/SGOT) 58H, Alanine Aminotransferase (ALT/SGPT) 72H, Alkaline Phosphatase 77, Myoglobin 23.4, Troponin I < 0.30, Total Protein 7.2, Albumin 4.0, Lipase 25 02/12/18 20:43: Myoglobin 248.5H, Troponin I 0.82*H A/P-Cardiology Admission Diagnosis Non-ST elevation myocardial infarction Coronary artery disease Hypertension Hyperlipidemia Admission Status: Inpatient Order (span 2 midnights) Reason for Inpatient Admission: Acute myocardial infarction Assessment/Plan Non-ST elevation myocardial infarction, acute chest pain, still having mild chest discomfort. Minimal EKG changes. Planning to proceed with cardiac catheterization possible PTCA Hypertension, history of labile blood pressure. Continue to monitor blood pressure and restart home medication Status post admission for bradycardia in December 2017. Currently heart rate is better. Continue to monitor Moderate carotid stenosis. Continue to monitor Hyperlipidemia, monitor lipids History of back pain with herniated disc. COPD, dyspnea on exertion, heavy smoking, educated on smoking cessation Esophagitis, gastritis, had endoscopy, followed by Dr. Schultz. Clinical Quality Measures AMI/AHF: ASA po Prior to arrival: JOYCE Toussaint MD Feb 12, 2018 21:45
--- NOTE | 2018-02-12 21:45 | Cardiac Procedure Note-CS/ASA ---
Pre-Procedure Note Pre-Op Procedure Note H&P Reviewed The H&P was reviewed, patient examined and no changes noted. Date H&P Reviewed: Feb 12, 2018 Time H&P Reviewed: 21:45 Conscious Sedation Pre-Proced Time 21:45 ASA Score 3 For ASA 3 and 4: Consider anesthesia and medical clearance. Also, for patients with a history of failed moderate sedation consider anesthesia. Airway Lungs Heart ASA score ASA 1: a normal healthy patient ASA 2: a patient with a mild systemic disease (mid diabetes, controlled hypertension, obesity x ASA 3: a patient with a severe systemic disease that limits activity (angina , COPD, prior Myocardial infarction) ASA 4: a patient with an incapacitating disease that is a constant threat to life (CHF, renal failure) ASA 5: a moribund patient not expected to survive 24 hrs. (ruptured aneurysm) ASA 6: a declared brain patient whose organs are being harvested. For emergent operations, add the letter E after the classification Mallampati Classification Grade 3 Sedation Plan Analgesia, Amnesia, Plan communicated to team members, Discussed options with patient/fam, Discussed risks with patient/fam The patient is an appropriate candidate to undergo the planned procedure, sedation, and anesthesia. The patient immediately re-assessed prior to indication. JOYCE TURNER MD Feb 12, 2018 21:45
[2018-02-12] MEDS ORDERED: MIDAZOLAM 5 MG/5 ML (VERSED) VIAL ONE (21:49)
[2018-02-12] MEDS ORDERED: fentaNYL INJECTION 100 MCG/2 ML AMP ONE ×2 (21:49→22:32)
[2018-02-12] MEDS ORDERED: NS IV 1000 ML 1,000 ML ONE (21:49)
[2018-02-12] MEDS ORDERED: HEParin (CATH LAB) 2,000 ML IV ONE (21:49)
[2018-02-12] MEDS ORDERED: LIDOCAINE 1% INJ 20 ML 20 ML VIAL ONE (21:49)
[2018-02-12] MEDS ORDERED: HEParin 1000 UNIT/ML (10ML VIAL) FOR BOLUS ONE (22:22)
[2018-02-12] MEDS ORDERED: EPTIFIBATIDE BOLUS 10 ML IV ONE (22:25)
[2018-02-12] MEDS ORDERED: NITRO DRIP 25000 MCG/D5W 250 ML IV ONE (22:31)
[2018-02-12] MEDS ORDERED: MIDAZOLAM 2 MG/2 ML (VERSED) VIAL ONE (22:32)
[2018-02-12] MEDS: NS IV 1000 ML 1,000 ML IV SCH (22:52)
[2018-02-12] MEDS ORDERED: PATIENT MAY USE OWN MEDS, ALL PO SCH (23:00)
--- NOTE | 2018-02-12 23:04 | Cardiac Cath Report ---
Cardiac Cath Report Physician (s)/Private Chef (s) Physician JOYCE TURNER MD Pre-Procedure Diagnosis Pre-Procedure Diagnosis: Non-ST elevation myocardial infarct Post-Procedure Note Procedure Start Date: Feb 12, 2018 Name of Procedure: Left heart catheterization Stent to the circumflex artery Findings/Procedure Note PROCEDURE NOTE: 67 years old lady admitted with acute chest pain and elevated troponin, emergency cardiac catheterization was carried out for non-ST elevation myocardial infarction, Left ear or cold. After explaining the procedure to the patient, all pros and cons were explained , all questions were answered. The patient signed the consent and then she was placed on the cardiac catheterization laboratory. Groin was prepped SL fashion local anesthesia was used. Sheath placed in the right femoral artery. Bernard right and left catheter were used to access the coronary system. Pigtail was used to access the left ventricular cavity. Left ventriculogram was not done, pressure was measured. Patient was given 5000 units of heparin, double bolus Integrilin. An FL guide was used to advance to the left corner system, has subtotal occlusion in the mid circumflex artery is a long lesion. BMW wire was advanced and parked in the distal circumflex artery, predilatation with 2.015 mm balloon then I used 2 overlapping Xience Марина 2.518 mm at the midportion followed by 2.25x18 mm overlapping stent expanded proximally to 2.7 mm and distally to 2.51 mm with excellent results. The first obtuse marginal branch has ostial stenosis that persisted without change. At the end of the procedure the sheath was removed. Closure device was used FINDINGS: Hemodynamics LV 161/16, end-diastolic pressure of 16 Aorta 166/81 mean of 114 ANATOMY: Left Main has mild disease nonobstructive disease Left Anterior Descending has mild diffuse disease proximally, moderate to severe stenosis at the mid to distal portion, mild disease distally Left Circumflex has severe stenosis at the midportion subtotal occlusion with severe disease at the long segment, complex intervention with 2 overlapping stent using Xience Марина 2.518 mm followed by 2.2518 mm overlapping stent expanded proximally to 2.7 mm and distally to 2.51 mm with excellent results. The first obtuse marginal branch is a small artery with severe ostial stenosis that persisted did not change after the procedure. Right Coronory Artery is dominant artery tortuous artery with mild disease nonobstructive disease LV Gram was not done, pressure was measured CONCLUSION: 1. Acute non-ST elevation myocardial infarction with emergency cardiac catheterization and stenting to the circumflex artery 2. Subtotal occlusion at the mid circumflex artery at the complex lesion with complex intervention using 2 drug-eluting stent Xience Марина 2.518 mm and 2.25 18 mm expanded proximally to 2.7 mm and distally 2.51 mm overlapping stent with excellent results. The first obtuse marginal branch is a small artery with severe ostial stenosis that did not change after the procedure 3. Moderate to severe stenosis at the mid LAD that will be assessed at the later point with repeating stress test and possible intervention on that lesion 4. Mild disease at the proximal LAD and mid right coronary artery nonobstructive disease 5. Incidental finding total occlusion of the right SFA noted during evaluating the sheath position DISCUSSION AND RECOMMENDATION: Continue to maximize medical therapy, planning for stress test as an outpatient and possible stenting of the LAD Anesthesia Type: Conscious Sedation Estimated blood loss (mL): 20 ml Contrast Amount: 115 ml Total Radiation Dose: 507 mGy Post-Procedure Diagnosis Post-operative diagnosis: NSTMI CAD HTN Nyperlipidemia JOYCE TURNER MD Feb 12, 2018 23:04
[2018-02-12 23:15] VITALS: BP 128/85
[2018-02-12 23:30] VITALS: BP 134/81
[2018-02-12 23:45] VITALS: BP 142/84
[2018-02-13] VITALS (20 sets, daily range): BP systolic 115–149; BP diastolic 59–96
[2018-02-13] MEDS: oxyCODONE/APAP 5/325MG (PERCOCET 5) TABLET PO PRN ×6 (01:37→21:38)
[2018-02-13 03:48] LABS: BASOPHILS % (AUTO) 1 % (0-10); EOSINOPHILS # (AUTO) 0.1 10^3/uL (0.0-0.3); EOSINOPHILS % (AUTO) 1 % (0-10); HEMATOCRIT 34 % (35-52); HEMOGLOBIN 11.5 G/DL (11.5-16.0); LYMPHOCYTES % (AUTO) 37 % (12-44); MEAN CORPUSCULAR HEMOGLOBIN 35 PG (25-34); MEAN CORPUSCULAR HGB CONC 34 G/DL (32-36); MEAN CORPUSCULAR VOLUME 103 FL (80-99); MONOCYTES # (AUTO) 0.6 X 10^3 (0.0-1.0); MONOCYTES % (AUTO) 11 % (0-12); NEUTROPHILS # (AUTO) 2.7 X 10^3 (1.8-7.8); NEUTROPHILS % (AUTO) 51 % (42-75); PLATELET COUNT 204 10^3/uL (130-400); RED BLOOD COUNT 3.29 10^6/uL (4.35-5.85); RED CELL DISTRIBUTION WIDTH 13.1 % (10.0-14.5); WHITE BLOOD COUNT 5.4 10^3/uL (4.3-11.0)
[2018-02-13 04:04] LABS: BUN/CREATININE RATIO 9; CALCIUM 8.5 MG/DL (8.5-10.1); CARBON DIOXIDE 22 MMOL/L (21-32); CHLORIDE 104 MMOL/L (98-107); CHOLESTEROL 212 MG/DL (< 200); CREATININE SERUM 0.69 MG/DL (0.60-1.30); GFR ESTIMATED > 60; GLUCOSE 105 MG/DL (70-105); HDL CHOLESTEROL 50 MG/DL (40-60); MAGNESIUM 2.2 MG/DL (1.8-2.4); PHOSPHORUS 2.8 MG/DL (2.3-4.7); POTASSIUM 3.7 MMOL/L (3.6-5.0); SODIUM 134 MMOL/L (135-145); TRIGLYCERIDES 124 MG/DL (<150); VLDL CHOLESTEROL 25 MG/DL (5-40)
[2018-02-13] MEDS: NS IV 1000 ML 1,000 ML IV SCH (05:43)
[2018-02-13] MEDS ORDERED: POTASSIUM CL 10MEQ/50ML IVPB 50 ML IV SCH (06:00)
[2018-02-13] MEDS ORDERED: MAGNESIUM 1 GM/100 ML IVPB 100 ML IV SCH (06:00)
[2018-02-13] MEDS ORDERED: KCL 20 MEQ TAB (K-DUR) PO SCH (06:00)
[2018-02-13] MEDS ORDERED: FLU QUADRIvalent (5+ YOA) 2018-2019 (AFLURIA) 0.5 ML IM ONE (07:15)
[2018-02-13] MEDS: SUCRALFATE 1 GM (CARAFATE) TAB PO SCH ×3 (07:16→16:53)
--- NOTE | 2018-02-13 07:32 | Diagnostic Imaging Report ---
EXAM: CHEST 1 VIEW, AP/PA ONLY INDICATION: POST CATH/NSTEMI COMPARISON: CTA chest 02/12/2018. FINDINGS: Normal heart size and central pulmonary vascularity. Calcified aorta. Hyperinflation and scattered scarring. No focal pulmonary opacity, pleural effusion or pneumothorax. No acute osseous findings. IMPRESSION: 1. COPD. 2. No acute cardiopulmonary findings. Dictated by: Dictated on workstation # [id number]
--- NOTE | 2018-02-13 07:53 | Cardiology Progress Note ---
Subjective Date Seen by Provider: Feb 13, 2018 Time Seen by Provider: 07:50 Subjective/Events-last exam Patient is laying down in bed, feeling better, still having pain in her groin. Denied any chest pain. Complaining of back pain. Review of Systems General: No Chills, No Night Sweats, No Fatigue, No Malaise, No Appetite, No Other HEENT: No Head Aches, No Visual Changes, No Eye Pain, No Ear Pain, No Dysphasia , No Sinus Congestion, No Post Nasal Drip, No Sore Throat, No Other Pulmonary: No Dyspnea, No Cough, No Pleuritic Chest Pain, No Other Cardiovascular: No: Chest Pain, Palpitations, Orthopnea, Paroxysmal Noc. Dyspnea, Edema, Lt Headedness, Other Objective-Cardiology Exam Last Set of Vital Signs Vital Signs 02/13/18 02/13/18 06:00 07:24 Temp 96.8 Pulse 66 Resp 10 B/P (MAP) 119/93 (102) Pulse Ox 99 O2 Delivery Room Air Capillary Refill : Less Than 3 Seconds I&O Intake and Output 02/13/18 00:00 Intake Total 1000 ml Balance 1000 ml IV Total 1000 ml Daily Weight Change No General: Alert, Oriented X3, Cooperative, No Acute Distress HEENT: Atraumatic, PERRLA Neck: Supple, No JVD Lungs: Clear to Auscultation, Normal Air Movement Heart: Regular Rate, Normal S1, Normal S2, No Murmurs Abdomen: Normal Bowel Sounds, Soft, No Tenderness, No Hepatosplenomegaly, No Masses Extremities: No Clubbing, No Cyanosis, No Edema, Normal Pulses, No Tenderness/ Swelling Skin: No Rashes, No Breakdown, No Significant Lesion Neuro: Normal Gait, Normal Speech, Strength at 5/5 X4 Ext, Normal Tone, Sensation Intact Psych/Mental Status: Mental Status NL, Mood NL Results Lab Laboratory Tests 02/12/18 18:30 02/13/18 03:20 A/P-Cardiology Admission Diagnosis Non-ST elevation myocardial infarction Coronary artery disease Hypertension Hyperlipidemia Assessment/Plan Non-ST elevation myocardial infarction, status post cardiac catheterization with 2 stents to the circumflex artery. Coronary artery disease status post cardiac catheterization done on February 12, 2018 showing subtotal occlusion of the circumflex artery status post 2 stent deployment using Марина 2.518 and 2.2518 overlapping stent expanded proximally to 2.7 and distally 2.51 with excellent results. Has moderate to severe stenosis at the mid to distal LAD which will be treated medically and considering stress test as an outpatient. Educated in length about compliance with medication Hypertension, history of labile blood pressure, restarted medication and will monitor. Hyperlipidemia, I started her on Lipitor and Fish oil. Continue to monitor Frequent atrial premature contractions, history of bradycardia, tolerating beta blockers well, continue to monitor on telemetry Status post admission for bradycardia in December 2017. Currently heart rate is better. Continue to monitor Moderate carotid stenosis. Continue to monitor Hyperlipidemia, monitor lipids History of back pain with herniated disc. COPD, dyspnea on exertion, heavy smoking, educated on smoking cessation Esophagitis, gastritis, had endoscopy, followed by Dr. Schultz. Clinical Quality Measures AMI/AHF: ASA po Prior to arrival: No DVT/VTE Risk/Contraindication: Risk Factor Score Per Nursin RFS Level Per Nursing on Admit: 4+=Very High JOYCE TURNER MD Feb 13, 2018 07:53
[2018-02-13] MEDS: ASPIRIN E.C. 81 MG (ECOTRIN) TAB PO SCH (08:39)
[2018-02-13] MEDS: PANTOPRAZOLE 40 MG (PROTONIX) TAB PO SCH ×2 (08:39→20:12)
[2018-02-13] MEDS: CLOPIDOGREL 75 MG (PLAVIX) TABLET PO SCH (08:39)
[2018-02-13] MEDS: lisINopril 20 MG (PRINIVIL) TABLET PO SCH (08:39)
[2018-02-13] MEDS: amLODIPine 5 MG (NORVASC) TAB PO SCH (08:39)
[2018-02-13] MEDS: meTOproloL SUCCINATE 50 MG (TOPROL XL) TAB PO SCH (08:39)
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
[2018-02-13] MEDS: OMEGA 3 (FISH OIL) 1000 MG CAP PO SCH (16:57)
[2018-02-13] MEDS ORDERED: ATORVASTATIN 80 MG (LIPITOR) TABLET PO SCH (21:00)
[2018-02-14] VITALS: BP 125/58
[2018-02-14] MEDS: oxyCODONE/APAP 5/325MG (PERCOCET 5) TABLET PO PRN ×2 (01:33→06:23)
[2018-02-14 04:00] VITALS: BP 148/65
[2018-02-14] MEDS: SUCRALFATE 1 GM (CARAFATE) TAB PO SCH ×2 (06:20→12:00)
[2018-02-14] MEDS: OMEGA 3 (FISH OIL) 1000 MG CAP PO SCH (06:20)
[2018-02-14 08:29] VITALS: BP 119/63
[2018-02-14] MEDS: lisINopril 20 MG (PRINIVIL) TABLET PO SCH (08:50)
[2018-02-14] MEDS: amLODIPine 5 MG (NORVASC) TAB PO SCH (08:50)
[2018-02-14] MEDS: meTOproloL SUCCINATE 50 MG (TOPROL XL) TAB PO SCH (08:50)
[2018-02-14] MEDS: CLOPIDOGREL 75 MG (PLAVIX) TABLET PO SCH (08:51)
[2018-02-14] MEDS: PANTOPRAZOLE 40 MG (PROTONIX) TAB PO SCH (08:51)
[2018-02-14] MEDS: ASPIRIN E.C. 81 MG (ECOTRIN) TAB PO SCH (08:51)
[2018-02-14] MEDS ORDERED: OMG1KC PO (10:03)
[2018-02-14] MEDS ORDERED: CLOP75TA28 PO (10:03)
[2018-02-14] MEDS ORDERED: ATOR80TA76 PO (10:03)
[2018-02-14] MEDS ORDERED: ASPI-983 PO (10:03)
--- NOTE | 2018-02-14 10:04 | Discharge Inst-Post CATH ---
Discharge Inst-CATH Post Cardiac Cath D/C Inst Follow Up/Plan Appointment with Dr Best's office in 2 weeks CARDIAC CATH DISCHARGE INSTRUCTIONS *Hold Metformin for 48 hours post heart cath. ACTIVITY * Go Home directly and rest. * Limit activity of the leg (or wrist if it was used) for 7 days including aerobics, swimming, jogging, bicycling, etc. * Restrict stair-climbing for 7 days if possible, if not, climb up with your non -cath leg, then bring together on the same step. * Avoid lifting, pushing, pulling or excessive movement of the affected extremity for 7 days. * Customary sexual activity may be resumed after 2 days-use caution not to use a position that strains or causes pain to the affected extremity. * No driving for 24 hours. * NO SMOKING. * Avoid straining for bowel movements for 7 days. * Gentle walking on level ground is allowed. * Returning to work will depend on the type of procedure and the results. Your doctor will discuss this with you. CALL YOUR DOCTOR FOR ANY OF THE FOLLOWING: *If bleeding from the puncture site occurs- Apply gentle pressure to site with clean cloth and call your doctor or EMS. * If a knot or lump forms under the skin, increases in size, or causes pain. * If bruising appears to be worsening or moving further down your leg instead of disappearing. * Temperature above 101 F. CARE OF YOUR GROIN INCISION; * Bruising or purple discoloration of the skin near the puncture site is common. * You may shower only, no bathtub bathing for 5 days. Be careful to avoid slipping as your leg may feel stiff. * If a closure device was used on your femoral artery, please see the attached guide regarding care of the device and your leg. * Leave the dressing on, until removed by office staff. CARE OF YOUR WRIST INCISION; * Bruising or purple discoloration of the skin near the puncture site is common. * You may shower. * DO NOT submerge wrist. * Leave dressing on, until removed by office staff.. JOYCE BEST MD Feb 14, 2018 10:04 am
--- NOTE | 2018-02-14 10:07 | Cardiology Discharge Summary ---
Diagnosis/Chief Complaint Date of Admission Feb 12, 2018 at 11:12 pm Date of Discharge February 14, 2018 Admission Diagnosis Non-ST elevation myocardial infarction Coronary artery disease Hypertension Hyperlipidemia Discharge Diagnosis Non-ST elevation myocardial infarction Coronary artery disease Hypertension Hyperlipidemia Chief Complaint/HPI Chief Complaint/HPI 67 years old lady with history of hypertension, hyperlipidemia and carotid stenosis. 7 having chest pain, described it as burning sensation in the retrosternal area with bilateral arm pain, came into the emergency room. Given nitroglycerin, pain has improved slightly but still having some active chest discomfort, second set of troponin was elevated, had minimal EKG changes. She denied any palpitation, no syncope or near syncopal episode. Patient is a heavy smoker, smoked until the day of admission. She has history of COPD and dyspnea on exertion. Gastritis and esophagitis. Discharge Summary Hospital Course Hospital Course Non-ST elevation myocardial infarction, status post cardiac catheterization with 2 stents to the circumflex artery. Coronary artery disease status post cardiac catheterization done on February 12, 2018 showing subtotal occlusion of the circumflex artery status post 2 stent deployment using Марина 2.518 and 2.2518 overlapping stent expanded proximally to 2.7 and distally 2.51 with excellent results. Has moderate to severe stenosis at the mid to distal LAD which will be treated medically and considering stress test as an outpatient. Educated in length about compliance with medication Hypertension, or aching current medication, continue to monitor Hyperlipidemia, started on Lipitor 80 mg daily and fish oil. Continue to monitor Frequent atrial premature contractions, history of bradycardia, tolerating beta blockers well, continue to monitor on telemetry Status post admission for bradycardia in December 2017. Currently heart rate is better. Continue to monitor Moderate carotid stenosis. Continue to monitor Hyperlipidemia, monitor lipids History of back pain with herniated disc. COPD, dyspnea on exertion, heavy smoking, educated on smoking cessation Esophagitis, gastritis, had endoscopy, followed by Dr. Schultz. Tobaccoism, educated on smoking cessation. Labs Laboratory Tests 02/12/18 18:30: Red Blood Count 3.70L, Mean Corpuscular Volume 104H, Mean Corpuscular Hemoglobin 35H, D-Dimer 2.57H, Sodium Level 131L, Glucose Level 115H, Aspartate Amino Transf (AST/SGOT) 58H, Alanine Aminotransferase (ALT/SGPT) 72H 02/12/18 20:43: Myoglobin 248.5H, Troponin I 0.82*H 02/13/18 03:20: Red Blood Count 3.29L, Mean Corpuscular Volume 103H, Mean Corpuscular Hemoglobin 35H, Sodium Level 134L, Hematocrit 34L, Blood Urea Nitrogen 6L, Cholesterol Level 212H, LDL Cholesterol Direct 145H Procedures None. Discharge Physical Examination Allergies: Coded Allergies: Sulfa (Sulfonamide Antibiotics) (Verified Allergy, Unknown, 01/13/18) adhesive (Verified Allergy, Unknown, 12/31/17) fentanyl adhesive meperidine (Verified Allergy, Unknown, HALLUCINATIONS, 12/31/17) pregabalin (Verified Allergy, Unknown, 12/31/17) Vitals & I&Os Vital Signs Date Time Temp Pulse Resp B/P (MAP) Pulse Ox O2 Delivery O2 Flow Rate FiO2 02/14/18 08:29 97.6 75 16 119/63 (81) 100 Room Air General Appearance: Alert, Oriented X3, Cooperative, No Acute Distress HEENT: Atraumatic, PERRLA Respiratory: Clear to Auscultation, Normal Air Movement Cardiovascular: Regular Rate, Normal S1, Normal S2, No Murmurs Abdominal: Normal Bowel Sounds, Soft, No Tenderness, No Hepatosplenomegaly, No Masses Extremities: No Clubbing, No Cyanosis, No Edema, Normal Pulses, No Tenderness/ Swelling Skin: No Rashes, No Breakdown, No Significant Lesion Neuro: Normal Gait, Normal Speech, Strength at 5/5 X4 Ext, Normal Tone, Sensation Intact, Cranial Nerves 3-12 NL, Reflexes 2+ Psych/Mental Status: Mental Status NL, Mood NL Discharge Home Medications Reviewed and agree with Discharge Medication list on patient's Discharge Instruction sheet Instructions to Patient/Family Please see electronic discharge instructions given to patient. Clinical Quality Measures Admission Status Admission Status: Inpatient Order (span 2 midnights) Reason for Inpatient Admission: Acute myocardial infarction AMI/AHF: Ejection Fraction: Normal LVSF ASA Given prior to admit: Yes ASA po Prior to arrival: No DVT/VTE Risk/Contraindication: Risk Factor Score Per Nursin RFS Level Per Nursing on Admit: 4+=Very High JOYCE TURNER MD Feb 14, 2018 10:07 am
[2018-02-14] MEDS ORDERED: FLU QUADRIvalent (5+ YOA) 2018-2019 (AFLURIA) 0.5 ML IM ONE (10:28)
[2018-02-14] MEDS ORDERED: METH500T7 PO (11:24)
[2018-02-14 12:15] VITALS: BP 119/63
== END 2018-02-14 12:15 | disposition home or self-care (01) | DRG 247 ==
LOC: EDUNIT# 18:10 → ER 18:12 → CATH 21:23 → ICU 23:12 → 4TH 02-13 10:30
PROVIDERS: ADMIT Internal Medicine Cardiovascular Disease; ATTEND Internal Medicine Cardiovascular Disease
PROC: 027035Z Dilation of Coronary Artery, One Artery with Two Drug-eluting Intraluminal Devices, Percutaneous Approach (ICD-10-PCS; principal; 2018-02-12)
PROC: 4A023N7 Measurement of Cardiac Sampling and Pressure, Left Heart, Percutaneous Approach (ICD-10-PCS; 2018-02-12)
PROC: B2151ZZ Fluoroscopy of Left Heart using Low Osmolar Contrast (ICD-10-PCS; 2018-02-12)
PROC: B2111ZZ Fluoroscopy of Multiple Coronary Arteries using Low Osmolar Contrast (ICD-10-PCS; 2018-02-12)
DX: I21.4 Non-ST elevation (NSTEMI) myocardial infarction (principal); I25.10 Atherosclerotic heart disease of native coronary artery without angina pectoris; I10 Essential (primary) hypertension; E78.5 Hyperlipidemia, unspecified; I49.1 Atrial premature depolarization; I65.9 Occlusion and stenosis of unspecified precerebral artery; J43.9 Emphysema, unspecified; M54.9 Dorsalgia, unspecified; K20.9 Esophagitis, unspecified; K29.70 Gastritis, unspecified, without bleeding; F17.210 Nicotine dependence, cigarettes, uncomplicated; K21.9 Gastro-esophageal reflux disease without esophagitis; K59.09 Other constipation; K58.9 Irritable bowel syndrome, unspecified; I95.9 Hypotension, unspecified; M81.0 Age-related osteoporosis without current pathological fracture; M19.91 Primary osteoarthritis, unspecified site; M79.7 Fibromyalgia; F41.9 Anxiety disorder, unspecified; F43.10 Post-traumatic stress disorder, unspecified; F32.9 Major depressive disorder, single episode, unspecified; G43.909 Migraine, unspecified, not intractable, without status migrainosus; R91.8 Other nonspecific abnormal finding of lung field; Z87.442 Personal history of urinary calculi; Z23 Encounter for immunization
CPT/HCPCS: 36415; 71045; 71275; 80048; 80053; 80061; 83690; 83735; 83874; 84100; 84484; 85025; 85379; 85610; 85730; 87081; 90686; 93005; 93041; 93458; 94640

== ENCOUNTER 2018-02-23 14:55 | Emergency (ER) | payer MEDICARE, MEDICAID ==
[~2018-02-23] VITALS: Ht 162.6 cm; Wt 59.0 kg
[~2018-02-23 14:55] MED LIST changes: +ASPI-983 PO; +ATOR80TA76 PO; +CLOP75TA28 PO; +OMG1KC PO
[2018-02-23 16:41] LABS: BILIRUBIN,URINE NEGATIVE (NEGATIVE); CLARITY,URINE CLEAR; COLOR,URINE YELLOW; GLUCOSE, URINE (UA) NEGATIVE (NEGATIVE); KETONES,URINE NEGATIVE (NEGATIVE); LEUKOCYTE ESTERASE ,URINE NEGATIVE (NEGATIVE); NITRITE,URINE NEGATIVE (NEGATIVE); PH,URINE 6.5 (5-9); PROTEIN,URINE NEGATIVE (NEGATIVE); UROBILINOGEN,URINE NORMAL (NORMAL)
[2018-02-23 16:51] LABS: BACTERIA,URINE NEGATIVE /HPF; RBC,URINE RARE /HPF; SQUAMOUS EPITHELIAL CELL,UR 0-2 /HPF
--- NOTE | 2018-02-23 17:06 | ED GI ---
General Chief Complaint: Abdominal/GI Problems Stated Complaint: KIDNEY STONE Nursing Triage Note: PT TO TRIAGE VIA WC BY ED STAFF. A&OX4. REPORTS SHE WENT TO VIA CLINIC FOR POSSIBLE UTI. UTI CAME BACK CLEAN AND PROVIDER SENT PT TO ED FOR POSSIBLE KIDNEY STONE RULE OUT. PT REPORTS BACK THAT RADIATES TO RT LOWER ABD. PT REPORTS PAIN BEGAN THIS AM AND DESCRIBES PAIN STABBING PAIN. REPORTS HX OF KIDNEY STONES AND PAIN RESEMBLES. REPORTS NAUSEA AND HEADACHE. Sepsis Screen: No Definite Risk Source of Information: Patient Exam Limitations: No Limitations (MIKAELA MIN MD) History of Present Illness Date Seen by Provider: Feb 23, 2018 Time Seen by Provider: 17:02 Initial Comments The patient is a 67-year-old white female known to me for many years. She recently had a myocardial infarction. She has a past history of kidney stones. She went to the [facility] clinic this afternoon with complaints of flank pain. UA was said to be negative. She was referred here for consideration of CT of the abdomen. Timing/Duration: 12 Hours Severity/Quality: Moderate Location: Flank, Suprapubic Radiation: No Radiation Activities at Onset: None Associated Symptoms: Other (IBS and chronic constipation.) (MIKAELA MIN MD) Allergies and Home Medications Allergies Coded Allergies: Sulfa (Sulfonamide Antibiotics) (Verified Allergy, Unknown, 01/13/18) adhesive (Verified Allergy, Unknown, 12/31/17) fentanyl adhesive meperidine (Verified Allergy, Unknown, HALLUCINATIONS, 12/31/17) pregabalin (Verified Allergy, Unknown, 12/31/17) Home Medications Albuterol Sulfate 1 Puff Puff, 2 PUFF IH Q4H PRN for SHORTNESS OF BREATH, ( Reported) 1 PUFF = 90 MCG Amlodipine Besylate 5 Mg Tablet, 5 MG PO DAILY, (Reported) Aspirin 81 Mg Tablet.dr, 81 MG PO DAILY Prescribed by: JOYCE TURNER on 02/14/181002 Atorvastatin Calcium 80 Mg Tablet, 80 MG PO HS Prescribed by: JOYCE TURNER on 02/14/181002 Chlordiazepoxide HCl 10 Mg Capsule, 20 MG PO TID, (Reported) TAKES 2 (10MG) CAPSULES Clopidogrel Bisulfate 75 Mg Tablet, 75 MG PO DAILY Prescribed by: JOYCE TURNER on 02/14/18 100 Dicyclomine HCl 20 Mg Tablet, 20 MG PO TID PRN for IBS, (Reported) Lisinopril 20 Mg Tablet, 20 MG PO DAILY, (Reported) Melatonin 3 Mg Tablet, 3 MG PO HS PRN for SLEEP, (Reported) Methocarbamol 500 Mg Tablet, 500 MG PO QID PRN for MUSCLE SPASMS Prescribed by: SIVAKUMAR ANDRADE on 02/14/18 1124 Metoprolol Succinate 50 Mg Tab.er.24h, 50 MG PO DAILY Prescribed by: RAVINDRA ROB on 12/22/172016 [place] 3 Polyunsat Fatty Acids 1,000 Mg Cap, 1,000 MG PO BID WITH MEALS Prescribed by: JOYCE TURNER on 02/14/18 1003 Omeprazole Magnesium 20 Mg Tablet.dr, 40 MG PO BID 40 MG TWICE A DAY Prescribed by: BRIGETTE MORENO on 01/01/18 1109 Sodium Chloride 30 Ml [place], 1-2 SPRAYS NS DAILY PRN for CONGESTION, (Reported) Sucralfate 1 Gm Tablet, 1 GM PO TID Prescribed by: AUDIE ROBISON on 01/01/18 0805 Patient Home Medication List Home Medication List Reviewed: Yes (SONAM MCCABE MD) Review of Systems Review of Systems Constitutional: No chills, No fever Respiratory: No Symptoms Reported Cardiovascular: No Symptoms Reported Gastrointestinal: See HPI, Abdominal Pain, Constipated; Denies Vomiting Genitourinary: No Symptoms Reported Musculoskeletal: no symptoms reported (SONAM MCCABE MD) Past Sfgwaqj-Frvbbt-Hvzoua Hx Past Med/Social Hx: Reviewed Nursing Past Med/Soc Hx (MIKAELA MIN MD) Patient Social History Alcohol Use: Denies Use Recreational Drug Use: No Smoking Status: Light Tobacco Smoker Type Used: Cigarettes 2nd Hand Smoke Exposure: Yes Recent Foreign Travel: No Contact w/Someone Who Travel: No Recent Infectious Disease Expo: No Recent Hopitalizations: No (MIKAELA MIN MD) Immunizations Up To Date Tetanus Booster (TDap): Less than 5yrs Date of Pneumonia Vaccine: Feb 27, 2017 Date of Influenza Vaccine: Feb 27, 2017 (MIKAELA MIN MD) Seasonal Allergies Seasonal Allergies: Yes (MIKAELA MIN MD) Past Medical History Surgeries: Yes (ADHESIOLYSIS X3, LEFT FOOT X2, C/S X2, HYSTERECTOMY, RIGHT KNEE ) Abdominal, Appendectomy, Section, Hysterectomy, Orthopedic, Tonsillectomy Respiratory: Yes Pneumonia, COPD, Emphysema Currently Using CPAP: No Currently Using BIPAP: No Cardiac: Yes Hypertension, Palpitations Neurological: No Headaches /Migraines 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 Disorders: No Sexually Transmitted Disease: No HIV/AIDS: No Genitourinary: Yes Kidney Infection, Kidney Stones, UTI-Chronic Gastrointestinal: Yes Gastroesophageal Reflux Musculoskeletal: Yes ("KNEE AND BACK PROBLEMS" "BULGING DISCS" ) Degenerate Disk Disease, Osteoporosis, Arthritis, Chronic Back Pain Endocrine: No HEENT: No Loss of Vision: Bilateral Hearing Impairment: Denies Cancer: No Psychosocial: Yes (Pt states she had Bulemia years ago and lowest weight was 94 lbs ) Eating Disorder Integumentary: No Blood Disorders: Yes (HX OF ANEMIA) Adverse Reaction/Blood Tranf: No (MIKAELA MIN MD) Family Medical History Abdominal aortic aneurysm Alzheimer's disease 19 MOTHER Cardiovascular disease 19 FATHER ( AT 46 FROM HEART ATTACK) G8 SISTER Hypercholesterolemia 19 FATHER Hypertension 19 FATHER 19 MOTHER Myocardial infarction 19 FATHER Thyroid disease 19 MOTHER G8 SISTER Heart Disease (MIKAELA MIN MD) Physical Exam Vital Signs Vital Signs - First Documented 02/23/18 16:21 Temp 97.8 Pulse 68 Resp 16 B/P (MAP) 161/70 (100) Pulse Ox 98 O2 Delivery Room Air (SONAM MCCABE MD) Vital Signs Capillary Refill : Less Than 3 Seconds (MIKAELA MIN MD) Height/Weight/BMI Height: 5'4.00" Weight: 130lbs. 8.0oz. 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, no motor/sensory deficits, alert, normal mood/affect, oriented x 3 Skin: normal color, warm/dry Lymphatic: no adenopathy (ODGERS,MIKAELA K MD) Progress/Results/Core Measures Results/Orders Lab Results Laboratory Tests Test 02/23/18 16:37 02/23/18 17:00 Range/Units Urine Color YELLOW Urine Clarity CLEAR Urine pH 6.5 5-9 Urine Specific [place] 1.005 L 1.016-1.022 Urine Protein NEGATIVE NEGATIVE Urine Glucose (UA) NEGATIVE NEGATIVE Urine Ketones NEGATIVE NEGATIVE Urine Nitrite NEGATIVE NEGATIVE Urine Bilirubin NEGATIVE NEGATIVE Urine Urobilinogen NORMAL NORMAL MG/DL Urine Leukocyte Esterase NEGATIVE NEGATIVE Urine RBC (Auto) NEGATIVE NEGATIVE Urine RBC RARE /HPF Urine WBC NONE /HPF Urine Squamous Epithelial Cells 0-2 /HPF Urine Crystals NONE /LPF Urine Bacteria NEGATIVE /HPF Urine Casts NONE /LPF Urine Mucus NEGATIVE /LPF Urine Culture Indicated NO White Blood Count 5.9 4.3-11.0 10^3/uL Red Blood Count 3.63 L 4.35-5.85 10^6/uL Hemoglobin 12.5 11.5-16.0 G/DL Hematocrit 37 35-52 % Mean Corpuscular Volume 102 H 80-99 FL Mean Corpuscular Hemoglobin 34 25-34 PG Mean Corpuscular Hemoglobin Concent 34 32-36 G/DL Red Cell Distribution Width 13.2 10.0-14.5 % Platelet Count 293 130-400 10^3/uL Mean Platelet Volume 9.6 7.4-10.4 FL Neutrophils (%) (Auto) 50 42-75 % Lymphocytes (%) (Auto) 38 12-44 % Monocytes (%) (Auto) 10 0-12 % Eosinophils (%) (Auto) 2 0-10 % Basophils (%) (Auto) 1 0-10 % Neutrophils # (Auto) 3.0 1.8-7.8 X 10^3 Lymphocytes # (Auto) 2.3 1.0-4.0 X 10^3 Monocytes # (Auto) 0.6 0.0-1.0 X 10^3 Eosinophils # (Auto) 0.1 0.0-0.3 10^3/uL Basophils # (Auto) 0.1 0.0-0.1 10^3/uL Sodium Level 133 L 135-145 MMOL/L Potassium Level 3.5 L 3.6-5.0 MMOL/L Chloride Level 99 98-107 MMOL/L Carbon Dioxide Level 21 21-32 MMOL/L Anion Gap 13 5-14 MMOL/L Blood Urea Nitrogen 7 7-18 MG/DL Creatinine 0.83 0.60-1.30 MG/DL Estimat Glomerular Filtration Rate > 60 BUN/Creatinine Ratio 8 Glucose Level 92 70-105 MG/DL Calcium Level 9.5 8.5-10.1 MG/DL Corrected Calcium 9.3 8.5-10.1 MG/DL Total Bilirubin 0.4 0.1-1.0 MG/DL Aspartate Amino Transf (AST/SGOT) 66 H 5-34 U/L Alanine Aminotransferase (ALT/SGPT) 76 H 0-55 U/L Alkaline Phosphatase 96 40-136 U/L Total Protein 8.4 H 6.4-8.2 GM/DL Albumin 4.3 3.2-4.5 GM/DL (SONAM MCCABE MD) Medications Given in ED Current Medications Medications Dose Ordered Sig/Lisa Route Start Time Stop Time Status Last Admin Dose Admin Fentanyl Citrate 50 mcg ONCE ONCE IVP 02/23/18 17:30 02/23/18 17:31 DC 02/23/18 17:36 50 MCG Ondansetron HCl 8 mg ONCE ONCE IVP 02/23/18 17:30 02/23/18 17:31 DC 02/23/18 17:34 8 MG (SONAM MCCABE MD) Vital Signs/I&O 02/23/18 16:21 Temp 97.8 Pulse 68 Resp 16 B/P (MAP) 161/70 (100) Pulse Ox 98 O2 Delivery Room Air (SONAM MCCABE MD) Blood Pressure Mean: 100 Progress Progress Note : Progress Note 1800: Assumed care from Dr. MIN with CT results now noted. Patient does not have kidney stones and does appear to have constipation. She does has a history of this. Overall she is not in any acute distress currently. We did discuss the CT results. She will do outpatient therapy for constipation. Discharged home with return precautions. Patient verbalize understanding instructions and agreement with plan. (SONAM MCCABE MD) Diagnostic Imaging Diagonstic Imaging: CT Plain Films/CT/US/NM/MRI: abdomen, pelvis Comments NAME: MANJINDER HUMPHRIES [facility] REC#: [id number] PT STATUS: REG ER : 1950 PHYSICIAN: MIKAELA MIN MD ADMIT DATE: 02/23/18/ER Draft Date of Exam:02/23/18 CT ABD/PELVIS WO(KIDNEY STONE) PROCEDURE: CT urinary tract, rule out kidney stone. TECHNIQUE: Multiple contiguous axial images were obtained through the abdomen and pelvis without the use of intravenous contrast. INDICATION: Back pain that radiates to the right lower abdomen. FINDINGS: The liver, gallbladder and bile ducts are normal. The spleen, pancreas and adrenals are normal. There is a small nonobstructing calculus in the left kidney. There are bilateral calcifications present which I believe are vascular. There is no hydronephrosis on either side. No ureteral calculus is seen. The bladder is normal. There is fecal material seen throughout the colon consistent with moderate constipation. No abnormally dilated loops of large or small bowel are seen. There is no evidence of acute appendicitis. There is no free intraperitoneal air or fluid. There is no acute bony abnormality. IMPRESSION: No acute abnormality is seen. The gallbladder appears normal on today's study; otherwise, there is no change from the prior exam from 12/30/2017. Dictated on workstation # [id number] Dict: 02/23/181749 Trans: 02/23/181756 [facility] [id number] Interpreted by: ROCK HARRELL MD Electronically signed by: (SONAM MCCABE MD) Departure Impression Primary Impression: Left sided abdominal pain Additional Impression: Constipation Qualified Codes: K59.00 - Constipation, unspecified Disposition: 01 HOME, SELF-CARE Condition: Stable Departure-Patient Inst. Decision time for Depature: 18:06 (SONAM MCCABE MD) Referrals: SIVAKUMAR ANDRADE DO (PCP/Family) Primary Care Physician Patient Instructions: Acute Abdomen (Belly Pain), Adult (DC), Constipation, Adult (DC) Add. Discharge Instructions: All discharge instructions reviewed with patient and/or family. Voiced understanding. Drink plenty of fluid. You may use a fleets enema tonight. You may start MiraLAX 1 capful twice daily for 3 days and then change to one half capful twice daily thereafter to keep stools soft. You may increase or decrease the dose to keep stools in normal range. Follow-up with your doctor to discuss the irritable bowel constipation-type syndrome that you appear to be experiencing. Return for worse pain, fever, vomiting, weakness, breathing problems or other concerns as needed. MIKAELA MIN MD Feb 23, 2018 17:06 SONAM MCCABE MD Feb 23, 2018 18:10
[2018-02-23 17:16] LABS: BASOPHILS # (AUTO) 0.1 10^3/uL (0.0-0.1); BASOPHILS % (AUTO) 1 % (0-10); EOSINOPHILS # (AUTO) 0.1 10^3/uL (0.0-0.3); EOSINOPHILS % (AUTO) 2 % (0-10); HEMATOCRIT 37 % (35-52); HEMOGLOBIN 12.5 G/DL (11.5-16.0); LYMPHOCYTES # (AUTO) 2.3 X 10^3 (1.0-4.0); LYMPHOCYTES % (AUTO) 38 % (12-44); MEAN CORPUSCULAR HEMOGLOBIN 34 PG (25-34); MEAN CORPUSCULAR HGB CONC 34 G/DL (32-36); MEAN CORPUSCULAR VOLUME 102 FL (80-99); MEAN PLATELET VOLUME 9.6 FL (7.4-10.4); MONOCYTES # (AUTO) 0.6 X 10^3 (0.0-1.0); MONOCYTES % (AUTO) 10 % (0-12); NEUTROPHILS % (AUTO) 50 % (42-75); PLATELET COUNT 293 10^3/uL (130-400); RED BLOOD COUNT 3.63 10^6/uL (4.35-5.85); RED CELL DISTRIBUTION WIDTH 13.2 % (10.0-14.5); WHITE BLOOD COUNT 5.9 10^3/uL (4.3-11.0)
[2018-02-23] MEDS ORDERED: ONDANSETRON 4 MG/2 ML (SDV) Z0FRAN ONE (17:25)
[2018-02-23] MEDS ORDERED: ONDANSETRON 4 MG/2 ML (SDV) Z0FRAN IVP ONE (17:30)
[2018-02-23] MEDS ORDERED: fentaNYL INJECTION 100 MCG/2 ML AMP IVP ONE (17:30)
[2018-02-23 17:35] LABS: ALANINE AMINOTRANSFERASE 76 U/L (0-55); ALBUMIN 4.3 GM/DL (3.2-4.5); ALKALINE PHOSPHATASE 96 U/L (40-136); BILIRUBIN,TOTAL 0.4 MG/DL (0.1-1.0); BUN/CREATININE RATIO 8; CALCIUM 9.5 MG/DL (8.5-10.1); CARBON DIOXIDE 21 MMOL/L (21-32); CHLORIDE 99 MMOL/L (98-107); CREATININE SERUM 0.83 MG/DL (0.60-1.30); GFR ESTIMATED > 60; GLUCOSE 92 MG/DL (70-105); POTASSIUM 3.5 MMOL/L (3.6-5.0); SODIUM 133 MMOL/L (135-145); TOTAL PROTEIN 8.4 GM/DL (6.4-8.2)
--- NOTE | 2018-02-23 17:58 | Diagnostic Imaging Report ---
PROCEDURE: CT urinary tract, rule out kidney stone. TECHNIQUE: Multiple contiguous axial images were obtained through the abdomen and pelvis without the use of intravenous contrast. INDICATION: Back pain that radiates to the right lower abdomen. FINDINGS: The liver, gallbladder and bile ducts are normal. The spleen, pancreas and adrenals are normal. There is a small nonobstructing calculus in the left kidney. There are bilateral calcifications present which I believe are vascular. There is no hydronephrosis on either side. No ureteral calculus is seen. The bladder is normal. There is fecal material seen throughout the colon consistent with moderate constipation. No abnormally dilated loops of large or small bowel are seen. There is no evidence of acute appendicitis. There is no free intraperitoneal air or fluid. There is no acute bony abnormality. IMPRESSION: No acute abnormality is seen. The gallbladder appears normal on today's study; otherwise, there is no change from the prior exam from 12/30/2017. Dictated by: Dictated on workstation # [id number]
[2018-02-23 18:19] VITALS: BP 136/79
== END 2018-02-23 18:21 | disposition home or self-care (01) ==
LOC: ER 14:55 → EDUNIT# 14:55 → ER 18:21
DX: K59.00 Constipation, unspecified (principal); I25.2 Old myocardial infarction; J43.9 Emphysema, unspecified; I10 Essential (primary) hypertension; G43.909 Migraine, unspecified, not intractable, without status migrainosus; K21.9 Gastro-esophageal reflux disease without esophagitis; M81.0 Age-related osteoporosis without current pathological fracture; D64.9 Anemia, unspecified; Z82.49 Family history of ischemic heart disease and other diseases of the circulatory system; Z87.440 Personal history of urinary (tract) infections; Z79.51 Long term (current) use of inhaled steroids; Z79.82 Long term (current) use of aspirin; Z79.02 Long term (current) use of antithrombotics/antiplatelets; Z77.22 Contact with and (suspected) exposure to environmental tobacco smoke (acute) (chronic); Z90.710 Acquired absence of both cervix and uterus; Z90.89 Acquired absence of other organs; Z98.890 Other specified postprocedural states; Z87.01 Personal history of pneumonia (recurrent); Z88.2 Allergy status to sulfonamides; Z91.048 Other nonmedicinal substance allergy status; Z88.8 Allergy status to other drugs, medicaments and biological substances; Z87.19 Personal history of other diseases of the digestive system
CPT/HCPCS: 36415; 74176; 80053; 81000; 85025

== ENCOUNTER → 2018-03-19 | Outpatient (CLI) | payer MEDICARE, MEDICAID ==
[~2018-03-19] VITALS: Ht 162.6 cm; Wt 60.3 kg
[~2018-03-19] MED LIST changes: +CATHETER FLUSH 10 ML SYR IV PRN; +REGADENOSON 0.4 MG/5 ML SYR (LEXISCAN) IV ONE
--- NOTE | 2018-03-19 12:57 | STRESS TEST ---
DATE OF SERVICE: 03/19/2018 LEXISCAN MYOVIEW STRESS TEST REPORT REFERRING PHYSICIAN: Brittany Cho DO. Baseline heart rate is 70. Baseline blood pressure is 182/88. Baseline EKG is sinus rhythm with occasional APCs. In summary, the patient was injected with 9.07 mCi of technetium-99 Myoview and the resting images were obtained. Then, the patient received 0.4 mg of Lexiscan followed by 27.2 mCi of technetium-99 Myoview. Throughout the test, there were no EKG changes. The resting and stress images were reviewed and compared in the short axis, horizontal long axis, and vertical long axis views. Review of the images showed breast attenuation with no significant ischemia or infarction. SSS is 4, SDS is 4, TID value 1.09. On the gated images, the left ventricle appeared to be in normal size with normal contractility. Calculated ejection fraction is 70%. CONCLUSION: 1. The patient tolerated Lexiscan well. 2. Typical female pattern with breast attenuation with no significant ischemia or infarction on SPECT images. 3. Normal left ventricular size with normal contractility. Calculated ejection fraction is 70%. Job ID: [id number] DocumentID: [id number] Dictated Date: 03/19/2018 11:30:55 Research Electrician Date: 03/19/2018 12:56:13 Dictated By: JOYCE TURNER MD
== END ==
LOC: CARD 07:13
PROVIDERS: ATTEND Internal Medicine Cardiovascular Disease
DX: I10 Essential (primary) hypertension (principal); I25.10 Atherosclerotic heart disease of native coronary artery without angina pectoris; E78.2 Mixed hyperlipidemia; J44.9 Chronic obstructive pulmonary disease, unspecified; M54.5 Low back pain
CPT/HCPCS: 78452; 93017

== ENCOUNTER → 2018-04-11 | Outpatient (CLI) | payer MEDICARE, MEDICAID ==
[~2018-04-11] MED LIST changes: -CATHETER FLUSH 10 ML SYR IV PRN; -REGADENOSON 0.4 MG/5 ML SYR (LEXISCAN) IV ONE; +RT-ALBUTEROL SULF 2.5 MG/3 ML PRE-MIX VIAL INH ONE; +RT-ALBUTEROL SULF 2.5 MG/3 ML PRE-MIX VIAL ONE
== END ==
LOC: RT 12:49
PROVIDERS: ATTEND Internal Medicine
DX: R06.2 Wheezing (principal)
CPT/HCPCS: 94060; 94726; 94729

== ENCOUNTER 2018-04-18 07:35 | Day surgery (SDC) | payer MEDICARE, MEDICAID ==
[~2018-04-18] VITALS: Ht 162.6 cm; Wt 60.3 kg
[2018-04-18] VITALS (7 sets, daily range): BP systolic 101–169; BP diastolic 54–89
[~2018-04-18 07:35] MED LIST changes: -RT-ALBUTEROL SULF 2.5 MG/3 ML PRE-MIX VIAL INH ONE; -RT-ALBUTEROL SULF 2.5 MG/3 ML PRE-MIX VIAL ONE
--- OUTSIDE RECORDS SUMMARY | 2018-04-18 07:41 | XMS REPORT ---
Author Author VALERIE ZAVALA [facility] Address [address] [place] [address] Care Team Providers Care Distance Education Faculty Liaison Name Role Phone VALERIE ZAVALA Unavailable PROBLEMS Type Condition ICD9-CM Code [id number] Code Onset Dates Condition Status SNOMED Code Problem Generalized anxiety disorder F41.1 Active 34520448 Problem Hypokalemia E87.6 Active 636187049 Problem Right low back pain, with sciatica presence unspecified M54.5 Active 694450613 Problem Pain in right knee M25.561 Active 20416348 Problem Gastroesophageal reflux disease without esophagitis K21.9 Active 430321396 Problem UTI symptoms R39.9 Active 77732483 Problem Essential hypertension I10 Active 43912011 Problem Right foot pain M79.671 Active 76316653 Problem Neuropathy G62.9 Active 716099714 Problem Other emphysema J43.8 Active 12055593 Problem Anxiety F41.9 Active 54026299 Problem Opioid use disorder, moderate, dependence F11.20 Active 52075148 Problem Other chronic pain G89.29 Active 54763522 Problem Bone pain M89.8X9 Active 26656214 Problem Chronic pain G89.29 Active 79707591 Problem Back pain M54.9 Active 071719054 Problem Kidney stones N20.0 Active 57611687 Problem Panic attacks F41.0 Active 757172787 Problem Generalized abdominal pain R10.84 Active 666888746 Problem Renal calculus, right N20.0 Active 60088515 Problem Tobacco abuse Z72.0 Active 21832354 Problem Right upper quadrant abdominal pain R10.11 Active 480892188 Problem Depression, unspecified depression type F32.9 Active 86817644 Problem Weight decrease R63.4 Active 423689698 Problem Pulmonary emphysema, unspecified emphysema type J43.9 Active 52977046 Problem Post-traumatic stress disorder, chronic F43.12 Active 21402357 Problem Weight loss R63.4 Active 643383044 Problem Insomnia, unspecified type G47.00 Active [id number] ALLERGIES No Information ENCOUNTERS Encounter Location Date Diagnosis [facility] [place] [id number] [place] [address] 45324- 9877 04 Feb, 2018 [facility] [place] [id number] [place] [address] 66696- 1159 14 Dec, 2017 [facility] [place] [address] 60[address]- 1286 Dec, [facility] [place] [id number] [place] [address] 74250- 0557 Dec, Medicare welcome exam Z00.00 [facility] [id number] [place] [address] 08615- 3462 17 Nov, 2017 Opioid use disorder, moderate, dependence F11.20 [facility] [id number] [place] [address] 70283- 7131 16 Nov, 2017 Pelvic pain R10.2 ; Acute pyelonephritis N10 and Essential hypertension I10 [facility] [place] [id number] [place] [address] 47177- 9131 28 Oct, 2017 Medicare welcome exam Z00.00 [facility] [place] [id number] [place] [address] 21953- 3459 18 Oct, 2017 Gross hematuria R31.0 ; Urinary tract infection without hematuria, site unspecified N39.0 and Weakness R53.1 [facility] [place] [id number] [place] [address] 05870- 2940 13 Oct, 2017 [facility] [place] [id number] [place] [address] 15374- 4229 Oct, [facility] [place] [id number] [place] [address] 64791- 9989 Oct, Medicare welcome exam Z00.00 [facility] [place] [id number] [place] [address] 83278- 1509 September, Back pain M54.9 and Right anterior knee pain M25.561 [facility] [place] [address] [address] September, [facility] [place] [id number] [place] [address] 53430- 7159 September, [facility] [place] [id number] [place] [address] 97360- 2599 September, Essential hypertension I10 [facility] [place] [id number] [place] [address] 01617- 3403 September, [facility] [place] [id number] [place] [address] 75856- 4890 September, RLQ abdominal pain R10.31 ; Low back pain M54.5 and Other chronic pain G89.29 [facility] [place] [id number] [address] 8356 Aug, Medicare welcome exam Z00.00 [facility] [place] [id number] [place] [address] 27579- 3234 Aug, [facility] [place] [id number] [place] [address] 74923- 6869 Aug, Acute pyelonephritis N10 and Medicare welcome exam Z00.00 [facility] [address] [address] Aug, Dysuria R30.0 and Acute pyelonephritis N10 [facility] [place] [address] [address]- 0267 Aug, [facility] [place] [address] [address]- 5333 Aug, [facility] [place] [id number] [place] [address] 32750- 9624 Aug, [facility] [place] [address] [address]- 5518 Aug, [facility] [place] [id number] [address]- 4782 Jul, [facility] [place] [id number] [place] [address] 71599- 7288 Jul, Renal calculus, right N20.0 and Medicare welcome exam Z00.00 [facility] [id number] [place] [address] 60755 -5760 Jul, Dysuria R30.0 and Renal calculus, right N20.0 [facility] [place] [id number] [place] [address] 90287- 0282 Jul, Medicare welcome exam Z00.00 [facility] [id number] [place] [address] 16158- 0176 13 Jun, 2017 Gastroesophageal reflux disease without esophagitis K21.9 and Generalized abdominal pain R10.84 [facility] [id number] [place] [address] 78715- 9812 09 Jun, 2017 Medicare welcome exam Z00.00 [facility] [id number] [place] [address] 04365- 1312 Jun, [facility] [id number] [place] [address] 83418- 4320 Jun, Medicare welcome exam Z00.00 and Encounter for screening mammogram for malignant neoplasm of breast Z12.31 [facility] [place] [id number] [place] [address] 49223- 8823 Jun, Chronic pain G89.29 [facility] [id number] [place] [address] 35781- 8529 May, [facility] [id number] [place] [address] 06554- 6758 May, Pelvic pain R10.2 [facility] [place] [id number] [place] [address] 24641- 9472 May, Pelvic pain R10.2 [facility] [id number] [place] [address] 32276 -2356 May, Renal calculus, right N20.0 [facility] [address] 00726- 3801 May, Hematuria, unspecified type R31.9 and Nephrolithiasis N20.0 [facility] [id number] [place] [address] 25251 -1099 May, Dysuria R30.0 and Nephrolithiasis N20.0 [place] [address] 27931- 2001 May, [facility] [place] [address] 90634 -4218 May, Abdominal pain R10.9 and Kidney stone N20.0 [facility] [address] 55133- 2288 May, [facility] [address] 38915- 7627 May, Chronic pain G89.29 and Panic attacks F41.0 [facility] [id number] [place] [address] 16710- 2669 May, Urinary tract infection without hematuria, site unspecified N39.0 [facility] [id number] [place] [address] 22935- 8783 Apr, Right lower quadrant abdominal pain R10.31 and Abnormal serum lipase level R74.8 [facility] [id number] [place] [address] 37398- 4319 Apr, Recurrent urinary tract infection N39.0 [facility] [id number] [place] [address] 11663- 1706 Apr, UTI symptoms R39.9 ; Recurrent urinary tract infection N39.0 and Pelvic pain R10.2 [place] [address] 38628- 1169 Apr, Chronic pain G89.29 and Panic attacks F41.0 [facility] [place] [id number] [place] [address] 59939- 4022 Apr, Dysuria R30.0 [facility] [place] [id number] [place] [address] 01847- 3063 Apr, [facility] [place] [id number] [place] [address] 85980- 5062 Apr, Dysuria R30.0 and Urinary tract infection without hematuria , site unspecified N39.0 [facility] [place] [id number] [place] [address] 57756- 5038 Mar, UTI symptoms R39.9 [facility] [place] [id number] [place] [address] 05445- 2004 Mar, [facility] [place] [id number] [place] [address] 37963- 3169 Mar, Panic attacks F41.0 and Chronic pain G89.29 [facility] [place] [id number] [place] [address] 60368- 1243 Mar, [facility] [place] [id number] [place] [address] 19461- 1859 Mar, Dysuria R30.0 [facility] [place] [id number] [place] [address] 81086- 2614 Mar, Dysuria R30.0 [facility] [place] [id number] [place] [address] 24633- 6021 Feb, Chronic pain G89.29 ; Shortness of breath R06.02 ; Weight loss R63.4 ; Encounter for immunization Z23 ; Bone pain M89.8X9 ; Right anterior knee pain M25.561 and Cough R05 [facility] [place] [address] [address]- 0521 Feb, Shortness of breath R06.02 [facility] [place] [id number] [place] [address] 01494- 8495 Feb, [facility] [place] [id number] [place] [address] 61145- 1306 Feb, Panic attacks F41.0 and Chronic pain G89.29 [facility] [place] [id number] [place] [address] 22082- 4252 Feb, [facility] [place] [address] 02030- 4973 Feb, Panic attacks F41.0 ; Shortness of breath R06.02 and Encounter for immunization Z23 [place] [address] 84683- 5133 Jan, [place] [address] 93647- 2861 Jan, Anxiety F41.9 and Chronic pain G89.29 [place] [address] 61108- 7097 Dec, Anxiety F41.9 and Chronic pain G89.29 [facility] [id number] [place] [address] 96622- 8279 Nov, Chronic pain G89.29 [facility] [id number] [place] [address] 03316- 2609 Nov, Anxiety F41.9 [facility] [place] [id number] [place] [address] 26622- 5386 Nov, Chronic pain G89.29 ; Essential hypertension I10 and Other emphysema J43.8 [facility] [place] [id number] [place] [address] 44167- 0285 Oct, Anxiety F41.9 [facility] [place] [id number] [place] [address] 55321- 7571 Oct, [facility] [place] [id number] [place] [address] 77887- 9206 Oct, Chronic pain G89.29 [facility] [address] [address]- 4795 September, Recurrent UTI N39.0 ; Neuropathy G62.9 and Anxiety F41.9 [facility] [place] [id number] [place] [address] 68802- 4192 September, [facility] [place] [id number] [place] [address] 60657- 6693 September, Chronic pain G89.29 [facility] [place] [id number] [place] [address] 74735- 3344 September, [facility] [place] [id number] [place] [address] 62783- 2169 Aug, Post-traumatic stress disorder, chronic F43.12 ; Chronic urinary tract infection N39.0 ; Gastroesophageal reflux disease without esophagitis K21.9 ; Chronic pain G89.29 ; Essential hypertension I10 and Tobacco abuse Z72.0 [facility] [id number] [place] [address] 24805 -4180 Aug, [facility] [place] [id number] [place] [address] 63613- 8453 Aug, Chronic pain G89.29 [facility] [place] [id number] [place] [address] 45833- 7572 Aug, Insomnia, unspecified type G47.00 [facility] [place] [id number] [place] [address] 09391- 0219 Aug, [facility] [place] [id number] [place] [address] 12659- 1576 Jul, Chronic pain G89.29 [facility] [place] [id number] [place] [address] 45687- 1361 Jul, [facility] [place] [id number] [place] [address] 86081- 1526 Jul, [facility] [place] [id number] [place] [address] 53671- 0136 Jul, [facility] [place] [address] [address]- 8506 15 Jul, 2016 Recurrent UTI (urinary tract infection) N39.0 [facility] [place] [address] [address]- 6333 Jul, [facility] [place] [id number] [place] [address] 73586- 4173 Jun, Chronic pain G89.29 [facility] [place] [id number] [place] [address] 82506- 9388 Jun, [facility] [place] [id number] [place] [address] 58073- 5847 Jun, [facility] [place] [id number] [place] [address] 19987- 2083 May, Chronic pain G89.29 [facility] [place] [id number] [place] [address] 06663- 2456 May, Weight loss R63.4 and Shortness of breath R06.02 [facility] [place] [id number] [place] [address] 24531- 9893 May, Chronic pain G89.29 ; Weight loss R63.4 and Tobacco abuse Z72.0 [facility] [place] [id number] [place] [address] 83304- 5612 May, [facility] [place] [id number] [place] [address] 85321- 9617 May, Hypoxia R09.02 [facility] [place] [id number] [place] [address] 48314- 4344 May, [facility] [place] [id number] [place] [address] 23921- 4941 May, Pulmonary emphysema, unspecified emphysema type J43.9 [facility] [id number] [place] [address] 41182 -8494 May, [facility] [place] [id number] [place] [address] 94812- 6289 May, [facility] [place] [id number] [place] [address] 69310- 1739 May, [facility] [place] [id number] [place] [address] 47740- 7621 May, Chronic pain G89.29 ; Encounter for immunization Z23 ; Right anterior knee pain M25.561 and Cough R05 [facility] [place] [id number] [place] [address] 09626- 1905 Apr, Chronic pain G89.29 [facility] [place] [id number] [place] [address] 74555- 7355 Apr, [facility] [place] [id number] [place] [address] 08372- 9106 Apr, Generalized anxiety disorder F41.1 and Depression, unspecified depression type F32.9 [facility] [place] [id number] [place] [address] 97822- 4640 Apr, Chronic pain G89.29 ; Hypokalemia E87.6 and Insomnia, unspecified type G47.00 [facility] [place] [id number] [place] [address] 71887- 1692 Apr, [facility] [place] [id number] [place] [address] 68862- 9028 Apr, Chronic pain G89.29 [facility] [place] [id number] [place] [address] 26540- 4475 Apr, [facility] [place] [id number] [place] [address] 95382- 3123 Mar, [facility] [place] [id number] [place] [address] 54744- 3036 Mar, Insomnia, unspecified type G47.00 [facility] [place] [id number] [place] [address] 84724- 0405 Mar, Chronic pain G89.29 [facility] [place] [id number] [address]- 0523 Mar, [facility] [place] [id number] [place] [address] 49067- 2996 Feb, [facility] [place] [address] [address]- 9618 Feb, [facility] [place] [id number] [place] [address] 76917- 8282 Feb, [facility] [place] [id number] [place] [address] 57421- 1077 Feb, [facility] [place] [id number] [place] [address] 65526- 0238 Feb, [facility] [place] [id number] [place] [address] [id number]- [phone] 29 Jan, 2016 [facility] [place] [id number] [place] [address] 51232- [phone] 26 Jan, 2016 [facility] [place] [id number] [place] [address] 21410- [phone] 20 Jan, 2016 [facility] [place] [id number] [address] 13 Jan, 2016 [facility] [place] [id number] [address] 7983 12 Jan, 2016 [facility] [place] [id number] [address]170 07 Jan, 2016 Chronic pain G89.29 [facility] [place] [id number] [place] [address] 52216- 8783 Jan, 2016 Chronic pain G89.29 and Fibromyalgia M79.7 [facility] [place] [address] [address] 18[address] Dec, 2016 Depression, unspecified depression type F32.9 and Generalized anxiety disorder 300.02 [facility] [place] [id number] [place] [address] 09175- 2351 Dec, Dysthymia F34.1 ; Insomnia, unspecified type G47.00 and Chronic pain G89.29 [facility] [place] [id number] [place] [address] [id number]- 9056 Dec, Chronic pain G89.29 [facility] [place] [id number] [place] [address] 72474- 9533 Dec, Insomnia, unspecified type G47.00 [facility] [place] [id number] [place] [address] 97146- 3904 Dec, Fibromyalgia M79.7 and Chronic pain G89.29 [facility] [place] [id number] [place] [address] 24744- 1390 Dec, [facility] [place] [id number] [place] [address] 22626- 3068 Dec, [facility] [place] [id number] [place] [address] 69146- 2081 Dec, [facility] [place] [id number] [place] [address] 89072- 9860 Dec, [facility] [place] [id number] [place] [address] 36466- 1002 Dec, Chronic pain G89.29 [facility] [place] [id number] [place] [address] [id number] 254 Dec, [facility] [place] [id number] [place] [address] 67581- [phone] Dec, [facility] [place] [id number] [place] [address] [id number]- [phone] Dec, [facility] [place], [facility] [id number] [place] [address] 99607- 7688 Dec, Chronic pain G89.29 and Dysthymia F34.1 [facility] [place] [id number] [place] [address] 57497- 9689 Nov, [place] [id number] [place] [address] 85091- 8859 Nov, Hypokalemia E87.6 and Chronic pain G89.29 [facility] [id number] [place] [address] 77119- 4672 Nov, Back pain M54.9 and Pain in right knee M25.561 [place] [id number] [place] [address] 37666- 2079 Nov, [address] [address] 85799- 2595 Nov, Chronic pain G89.29 [place] [id number] [place] [address] 87809- 9758 Nov, Chronic pain G89.29 ; Weight loss R63.4 ; Bone pain M89.8X9 and Insomnia, unspecified type G47.00 [facility] [id number] [place] [address] 79537- 3559 Nov, Chronic pain G89.29 [facility] [id number] [place] [address] 73481- 1850 Nov, Chronic pain G89.29 [place] [id number] [place] [address] 40863- 4377 30 Oct, 2015 Chronic pain G89.29 [facility] [id number] [place] [address] 57501- 6969 Oct, UTI symptoms R39.9 [facility] [id number] [place] [address] 98699- 2764 27 Oct, 2015 Chronic pain G89.29 [place] [id number] [place] [address] 20296- 5881 20 Oct, 2015 Chronic pain G89.29 [facility] [id number] [place] [address] 36936- 8556 Oct, Chronic pain G89.29 [facility] [place] [address] [address] 1073 Oct, Right upper quadrant abdominal pain R10.11 [facility] [place] [id number] [place] [address] 11652- 1591 Oct, Chronic pain G89.29 [facility] [place] [id number] [place] [address] 87496- 1248 Oct, [facility] [place] [id number] [place] [address] 63822- 6779 September, Chronic pain G89.29 [facility] [place] [id number] [place] [address] 15918- 0885 September, Dysuria R30.0 and Urinary tract infection without hematuria , site unspecified N39.0 [facility] [place] [id number] [place] [address] 33673- 7408 September, [facility] [place] [id number] [place] [address] 13723- 2681 September, Dysuria R30.0 [facility] [place] [id number] [place] [address] 18349- 0675 September, Chronic pain G89.29 [facility] [place] [id number] [place] [address] 12453- 6917 September, Chronic pain G89.29 and Essential hypertension I10 [facility] [place] [id number] [place] [address] 71857- 7219 September, [facility] [place] [id number] [place] [address] 81003- 8160 September, [facility] [place] [id number] [place] [address] 52901- 2744 September, [facility] [place] [id number] [place] [address] 18918- 2800 Aug, UTI symptoms R39.9 [facility] [place] [id number] [place] [address] 11558- 0105 Aug, Dysuria R30.0 [facility] [place] [id number] [place] [address] 44925- 3011 Aug, [facility] [place] [id number] [place] [address] 77012- 9551 Aug, [facility] [place] [id number] [place] [address] 70894- 3226 Aug, [facility] [place] [id number] [place] [address] 49176- 8672 Aug, Chronic pain G89.29 [facility] [place] [id number] [place] [address] 41418- 5764 Aug, Dysthymia F34.1 [facility] [place] [id number] [place] [address] 74331- 9006 Aug, Conjunctivitis, unspecified conjunctivitis type, unspecified laterality H10.9 [facility] [place] [id number] [place] [address] 77608- 9482 31 Jul, 2015 Chronic pain G89.29 ; Back pain M54.9 ; Tobacco abuse Z72.0 and Weight decrease R63.4 [facility] [place] [id number] [place] [address] 78744- 5021 Jul, [facility] [place] [id number] [place] [address] 56181- 0864 30 Jul, 2015 [facility] [place] [id number] [place] [address] 50461- 6542 24 Jul, 2015 Chronic pain G89.29 [facility] [place] [id number] [place] [address] 04654- 0625 22 Jul, 2015 [facility] [place] [id number] [place] [address] 39074- 2025 Jul, [facility] [place] [id number] [place] [address] 85050- 1920 18 Jul, 2015 [facility] [place] [address] [address]- 8787 17 Jul, 2015 [facility] [place] [address] [address]- 9586 17 Jul, 2015 Chronic pain G89.29 [facility] [place] [address] [address]- 3604 16 Jul, 2015 Chronic pain G89.29 [facility] [place] [id number] [place] [address] 51461- 9341 15 Jul, 2015 [facility] [place] [id number] [place] [address] 11306- 8775 10 Jul, 2015 [facility] [place] [id number] [place] [address] 95174- 6039 Jul, [facility] [place] [id number] [place] [address] 43957- 1860 Jul, [facility] [place] [address] [address]- 1130 Jun, [facility] [place] [id number] [place] [address] 53582- 8541 Jun, Depression, unspecified depression type F32.9 [facility] [place] [address] [address]- 6933 Jun, Pain in right knee M25.561 [facility] [place] [address] [address]- 6516 24 Jun, 2015 Chronic pain G89.29 ; Back pain M54.9 ; Bone pain M89.8X9 and Weight loss R63.4 [facility] [place] [address] [address]- 1908 Jun, [facility] [place] [address] [address]- 5259 May, [facility] [place] [id number] [place] [address] 83338- 2741 May, UTI symptoms R39.9 ; Pain in right knee M25.561 ; Right low back pain, with sciatica presence unspecified M54.5 ; Right foot pain M79.671 ; Hypokalemia E87.6 and Screening, lipid Z13.220 [facility] [place] [id number] [place] [address] 83843- 2213 May, [facility] [place] [id number] [place] [address] 06612- 6370 May, [facility] [place] [id number] [place] [address] 89285- 9403 Mar, [facility] [place] [id number] [place] [address] 55992- 8722 Mar, [facility] [place] [id number] [place] [address] 58329- 6808 Mar, Hypokalemia E87.6 [facility] [place] [id number] [place] [address] 75954- 3144 Mar, Pain in right leg M79.604 ; Encounter for immunization Z23 ; Pain in right knee M25.561 and Hypokalemia E87.6 [facility] [place] [address] [address]- 9719 Jan, [facility] [place] [id number] [place] [address] 76900 2540 Jan, [facility] [place] [id number] [place] [address] 09877 2540 Jan, Abdominal pain, generalized 789.07 [facility] [place] [id number] [place] [address] 78078- 5177 Jan, Abdominal pain, generalized 789.07 [facility] [place] [address] [address]- 2547 Dec, [facility] [place] [id number] [address]- 3416 Dec, [facility] [place] [address] [address]- 1416 Dec, [facility] [place] [address] [address]- 5846 Nov, Hallux valgus 735.0 and Hammertoe 735.4 [facility] [place] [id number] [place] [address] 87983- 5176 Nov, [facility] [place] [id number] [place] [address] 26003- 1935 Nov, Hallux valgus 735.0 and Hammer toe 735.4 [facility] [place] [address] [address]- 4426 Oct, [facility] [place] [id number] [place] [address] 13771- 0886 Oct, [facility] [place] [address] [address]- 0301 Oct, Pre-op evaluation V72.84 [facility] [place] [id number] [place] [address] 52158- 5584 Oct, [facility] [place] [address] [address]- 5496 Oct, [facility] [place] [address] [address]- 7906 September, [facility] [place] [address] [address]- 7676 September, [facility] [place] [id number] [place] [address] [id number]- 3216 September, Hallux valgus (acquired) 735.0 and Other hammer toe ( acquired) 735.4 [facility] [place] [address] 9476 Aug, [facility] [place] [facility] [address] [id number] [place] [address]- 3190 13 Aug, 2014 [facility] [place] [facility] [address] [id number] [place] [address]- 1800 Jul, [facility] [place] [facility] [address] [id number] [place] 0665 Jul, [facility] [place] [facility] [address] [id number] [place] [address]- 6693 Jul, [facility] [place] [facility] [address] [id number] [place] [address]- 3561 Jul, [facility] [place] [facility] [address] [id number] [place] [address]- 9430 Jul, [facility] [place] [facility] [address] [id number] [place] [address]- 2557 Jul, [facility] [place] [facility] [address] [id number] [place] [address]- 7549 Jul, [facility] [place] [facility] [address] [id number] [place] [address]- 3582 Jul, [facility] [place] [facility] [address] [id number] [place] [address]- 3656 Jun, [facility] [place] [facility] [address] [id number] [place] [address]- 2211 Jun, [facility] [place] [facility] [address] [id number] [address]- 2582 Jun, [facility] [place] [facility] [address] [id number] [place] [address]- 7732 Jun, [facility] [place] [facility] [address] [id number] [place] [address]- 5402 Jun, [facility] [place] [facility] [address] [id number] [place] [address]- 8988 Jun, [facility] [place] [facility] [address] [id number] [place] [address]- 9769 Jun, [facility] [address] [id number] [place] [address]- 0042 Jun, [facility] [place] [facility] [address] [id number] [place] [address]- 9249 Jun, [facility] [place] [facility] [address] [id number] [place] [address]- 6211 Jun, [facility] [place] [facility] [address] [id number] [place] [address]- 0565 May, [facility] [place] [facility] [address] [id number] [place] [address]- 5736 May, [facility] [place] [facility] [address] [id number] [place] [address]- 4869 May, [facility] [place] [facility] [address] [id number] [place] [address]- 9629 May, [facility] [place] [facility] [address] [id number] [place] [address]- 8647 May, [facility] [place] [facility] [address] [id number] [place] [address]- 7767 May, [facility] [place] [facility] [address] [id number] [place] [address]- 6381 May, [facility] [place] [facility] [address] [id number] [place] [address]- 6168 May, [facility] [place] [facility] [address] [id number] [place] [address]- 9350 May, [facility] [place] [facility] [address] [id number] [place] [address]- 8919 May, [facility] [place] [facility] [address] [id number] [place] [address]- 8605 May, [facility] [place] [facility] [address] [id number] [place] [address]- 0870 May, [facility] [place] [facility] [address] [id number] [place] [address]- 5945 May, [facility] [place] [facility] [address] [id number] [place] [address]- 7120 May, [facility] [place] [facility] [address] [id number] [place] [address]- 3355 May, [facility] [place] [facility] [address] [id number] [place] [address]- 1417 May, [facility] [place] [facility] [address] [id number] [place] [address]- 8919 May, [facility] [place] [facility] [address] [id number] [place] [address]- 1892 May, [facility] [place] [facility] [address] [id number] [place] [address]- 8918 Apr, [facility] [place] [facility] [address] [id number] [place] [address]- 0137 Apr, [facility] [place] [facility] [address] [id number] [place] [address]- 1700 Apr, [facility] [place] [facility] [address] [id number] [place] [address]- 7865 Apr, [facility] [place] [facility] [address] [id number] [place] [address]- 0192 Apr, [facility] [place] [facility] [address] [id number] [place] [address]- 7476 Apr, [facility] [place] [facility] [address] [id number] [place] [address]- 2484 Apr, [facility] [place] [facility] [address] [id number] [place] [address]- 6321 Apr, [facility] [place] [facility] [address] [id number] [place] [address]- 6540 Apr, [facility] [place] [facility] [address] [id number] [address]- 0414 Mar, [facility] [place] [facility] [address] [id number] [place] [address]- 9713 Mar, [facility] [place] [facility] [address] [id number] [place] [address]- 0428 Mar, [facility] [place] [facility] [address] [id number] [place] [address]- 0725 Mar, [facility] [place] [facility] [address] [id number] [place] [address]- 4857 Mar, [facility] [place] [facility] [address] [id number] [place] [address]- 9405 Feb, [facility] [place] [facility] [address] [id number] [place] [address]- 3461 Feb, [facility] [place] [facility] [address] [facility] [id number] [place] [address]- 9573 Feb, [facility] [place] [facility] [address] [id number] [place] [address]- 2183 Feb, [facility] [place] [facility] [address] [facility] [id number] [place] [address]- 7918 Feb, [facility] [place] [facility] [address] [facility] [id number] [place] [address]- 2571 Feb, [facility] [place] [facility] [address] [id number] [place] [address]- 5471 Feb, [facility] [place] [facility] [address] [id number] [place] [address]- 4081 Feb, [facility] [place] [facility] [address] [id number] [place] [address]- 7648 Feb, [facility] [place] [facility] [address] [facility] [id number] [place] [address]- 5446 Feb, [facility] [place] [facility] [address] [facility] [id number] [place] [address]- 8448 Feb, [facility] [place] [facility] [address] [id number] [place] [address]- 8909 08 Feb, 2013 [facility] [place] [facility] [address] [id number] [place] [address]- 6237 07 Feb, 2013 [facility] [place] [facility] [address] [id number] [place] 8716 Feb, 2013 [facility] [place] [facility] [address] [id number] [place] [address]- 3575 Feb, 2013 [facility] [place] [facility] [address] [id number] [place] [address]- 8245 Feb, [facility] [place] [facility] [address] [id number] [place] [address]- 2870 Jan, 2013 [facility] [place] [facility] [address] [id number] [place] [address]- 0826 23 Jan, 2013 [facility] [place] [facility] [address] [id number] [place] [address] 20 Jan, 2013 [facility] [place] [facility] [address] [id number] [place] [address] 19 Jan, 2013 [facility] [place] [facility] [address] [id number] [place] [address]76 11 Jan, 2013 [facility] [place] [facility] [address] [id number] [place] [address]- 6580 11 Jan, 2013 [facility] [place] [facility] [address] [id number] [place] [address] Jan, 2013 [facility] [place] [facility] [address] [id number] [place] [address] Jan, 2013 [facility] [place] [facility] [address] [id number] [place] [address] Dec, [facility] [place] [facility] [address] [id number] [place] [address] 8946 Dec, [facility] [place] [facility] [address] [id number] [place] [address] Nov, [facility] [place] [facility] [address] [id number] [place] [address] 8035 Nov, [facility] [place] [facility] [address] [id number] [place] [address]- 0974 Nov, [facility] [place] [facility] [address] [id number] [place] [address] Nov, [facility] [place] [facility] [address] [id number] [place] [address]491 Nov, [facility] [place] [facility] [address] [id number] [place] [address] Nov, [facility] [place] [facility] [address] [id number] [place] [address] 8218 Nov, [facility] [place] [facility] [address] [id number] [place] [address]- 115[address] Nov, [facility] [place] [facility] [address] [id number] [place] [address]- [address]456 Nov, [facility] [place] [facility] [address] [id number] [place] [address] Oct, [facility] [place] [facility] [address] [id number] [place] [address]- 8905 Oct, [facility] [place] [facility] [address] [id number] [place] [address]- 0974 Oct, [facility] [place] [facility] [address] [id number] [place] [address] 3598 Oct, [facility] [place] [facility] [address] [id number] [place] [address] 2709 Oct, [facility] [place] [facility] [address] [id number] [place] [address]- 4126 Oct, [facility] [place] [facility] [address] [id number] [place] [address] 8565 September, [facility] [place] [facility] [address] [id number] [place] [address]- [address] September, [facility] [address] [id number] [place] [address] September, [facility] [address] [id number] [place] [address] September, [facility] [address] [id number] [place] [address]- 1034 September, [facility] [place] [facility] [address] [id number] [place] [address]- 3065 September, [facility] [address] [id number] [place] [address] 47[address] September, [facility] [address] [id number] [place] [address] 9815 September, [facility] [address] [id number] [place] [address]- 7670 September, [facility] [address] [id number] [place] [address]- 7868 September, [facility] [address] [id number] [place] [address] 7[address] September, [facility] [address] [id number] [place] [address]- 9843 September, [facility] [place] [facility] [address] [id number] [place] [address]698 September, [facility] [place] [facility] [address] [id number] [place] [address]- 2404 September, [facility] [place] [facility] [address] [id number] [place] [address] 1362 September, [facility] [place] [facility] [address] [id number] [place] [address]- [address] September, [facility] [place] [facility] [address] [id number] [place] [address]- [address] September, [facility] [place] [facility] [address] [id number] [place] [address]- 4297 September, [facility] [place] [facility] [address] [id number] [place] [address]- 2577 September, [facility] [place] [facility] [address] [id number] [place] [address]- 8387 September, [facility] [place] [facility] [address] [id number] [place] [address]- 0509 Aug, [facility] [place] [facility] [address] [id number] [place] [address]- [address]6 29 Aug, 2013 [facility] [place] [facility] [address] [id number] [place] [address]- 0859 Aug, [facility] [place] [facility] [address] [id number] [place] [address]- [address]247 Aug, [facility] [place] [facility] [address] [id number] [place] [address]- 4105 Aug, [facility] [place] [facility] [address] [id number] [place] [address]- 6[address] Aug, [facility] [place] [facility] [address] [id number] [place] [address]- 1447 16 Aug, 2013 [facility] [place] [facility] [address] [id number] [place] [address]- 7292 16 Aug, 2013 [facility] [place] [facility] [address] [id number] [place] [address]- [address]157 15 Aug, 2013 [facility] [place] [facility] [address] [id number] [place] [address]- 4[address] 15 Aug, 2013 [facility] [place] [facility] [address] [id number] [place] [address]- 0881 14 Aug, 2013 [facility] [place] [facility] [address] [id number] [place] [address]- [address] 05 Aug, 2013 [facility] [place] [facility] [address] [id number] [place] [address] 05 Aug, 2013 [facility] [place] [facility] [address] [id number] [place] [address] Aug, [facility] [place] [facility] [address] [id number] [place] [address]39 Aug, [facility] [place] [facility] [address] [id number] [place] [address] Jul, [facility] [place] [facility] [address] [id number] [place] [address] 4112 Jul, [facility] [place] [facility] [address] [id number] [place] [address] 8711 Jul, [facility] [place] [facility] [address] [id number] [place] [address] 1692 Jul, [facility] [place] [facility] [address] [id number] [place] [address]- 2554 Jul, [facility] [place] [facility] [address] [id number] [place] [address]- 3357 Jul, [facility] [place] [facility] [address] [id number] [place] [address]- 7934 Jul, [facility] [place] [facility] [address] [id number] [place] [address] 9477 Jul, [facility] [place] [facility] [address] [id number] [place] [address] 8[address] 06 Jul, 2013 [facility] [place] [facility] [address] [id number] [place] [address]- 2508 06 Jul, 2013 [facility] [place] [facility] [address] [id number] [place] [address]- 5415 04 Jul, 2013 [facility] [place] [facility] [address] [id number] [place] [address]- 5593 04 Jul, 2013 [facility] [place] [facility] [address] [id number] [place] [address]- 5018 Jul, [facility] [place] [facility] [address] [id number] [place] [address]- 8772 Jul, [facility] [place] [facility] [address] [id number] [place] [address]- 4632 Jul, [facility] [place] [facility] [address] [id number] [place] [address]- 7136 Jun, [facility] [place] [facility] [address] [id number] [place] [address]- 0686 Jun, [facility] [place] [facility] [address] [id number] [place] [address]- 0345 Jun, [facility] [place] [facility] [address] [id number] [place] [address]- 4136 Jun, [facility] [place] [facility] [address] [id number] [place] [address]- 1762 Jun, [facility] [place] [facility] [address] [id number] [place] [address]- 1234 Jun, [facility] [place] [facility] [address] [id number] [place] [address]- 6347 May, [facility] [place] [facility] [address] [id number] [place] [address]- 7291 May, [facility] [place] [facility] [address] [id number] [place] [address]- 7360 May, [facility] [place] [facility] [address] [id number] [place] [address]- 4137 May, [facility] [place] [facility] [address] [id number] [place] [address]- 3730 May, [facility] [place] [facility] [address] [id number] [place] [address]- 2546 May, [facility] [place] [facility] [address] [id number] [place] [address]- 0203 May, [facility] [place] [facility] [address] [id number] [place] [address]- 8342 May, [facility] [address] [id number] [place] [address]- 1628 May, [facility] [place] [facility] [address] [id number] [place] [address]- 4520 May, [facility] [place] [facility] [address] [id number] [place] [address]- 5234 May, [facility] [place] [facility] [address] [id number] [place] [address]- 5992 May, [facility] [place] [facility] [address] [id number] [place] [address]- 8960 May, [facility] [place] [facility] [address] [id number] [place] [address]- 4101 May, [facility] [place] [facility] [address] [id number] [place] [address]- 7325 May, [facility] [place] [facility] [address] [id number] [place] [address]- 8186 Apr, [facility] [place] [facility] [address] [id number] [place] [address]- 4871 Apr, [facility] [place] [facility] [address] [id number] [place] [address]- 9806 Apr, [facility] [place] [facility] [address] [id number] [place] [address] 1969 Apr, [facility] [place] [facility] [address] [id number] [address]- 5314 Apr, [facility] [place] [facility] [address] [id number] [place] [address]- 7882 Apr, [facility] [place] [facility] [address] [id number] [place] [address]- 6445 Apr, [facility] [place] [facility] [address] [id number] [place] [address]- 5664 Apr, [facility] [place] [facility] [address] [id number] [place] [address]- 5238 Apr, [facility] [address] [id number] [place] [address]- 7840 Apr, [facility] [place] [facility] [address] [id number] [place] [address]- 1409 Mar, [facility] [address] [id number] [place] [address]- 7226 Mar, [facility] [place] [facility] [address] [id number] [place] [address]- 0552 Mar, [facility] [address] [id number] [place] [address]- 8512 Mar, [facility] [place] [facility] [address] [id number] [place] [address]- 5837 Mar, [facility] [address] [id number] [place] [address]- 6990 Mar, [facility] [address] [id number] [place] [address]- 2292 Mar, [facility] [place] [facility] [address] [id number] [place] [address]- 0265 Mar, [facility] [address] [id number] [place] [address]- 9189 Mar, [facility] [address] [id number] [place] [address]- 6974 Mar, [facility] [place] [facility] [address] [id number] [place] [address]- 9160 Mar, [facility] [place] [facility] [address] [id number] [place] [address]- 6962 Mar, [facility] [place] [facility] [address] [id number] [place] [address]- 7996 Mar, [facility] [place] [facility] [address] [id number] [place] [address]- 9385 Mar, [facility] [place] [facility] [address] [id number] [place] [address]- 2010 18 Mar, 2013 [facility] [place] [facility] [address] [id number] [place] [address]- 5914 18 Mar, 2013 [facility] [place] [facility] [address] [id number] [place] [address]- 0154 Mar, [facility] [place] [facility] [address] [id number] [place] [address]- 0144 14 Mar, 2013 [facility] [place] [facility] [address] [id number] [place] [address]- 6309 Mar, [facility] [place] [facility] [address] [id number] [place] [address]- 6944 Mar, [facility] [place] [facility] [address] [id number] [place] [address]- 0411 Mar, [facility] [place] [facility] [address] [id number] [place] [address]- 0438 Mar, [facility] [place] [facility] [address] [id number] [place] [address]- 1917 Mar, [facility] [place] [facility] [address] [id number] [place] [address]- 1711 Feb, [facility] [place] [facility] [address] [id number] [place] [address]- 4065 18 Feb, 2013 [facility] [place] [facility] [address] [id number] [place] [address]- 7522 16 Feb, 2013 [facility] [place] [facility] [address] [id number] [place] [address]- 5659 16 Feb, 2013 [facility] [place] [facility] [address] [id number] [place] [address]- 6362 15 Feb, 2013 [facility] [place] [facility] [address] [id number] [place] [address]- 1418 09 Feb, 2013 [facility] [place] [facility] [address] [id number] [place] [address]- 2738 Feb, [facility] [place] [facility] [address] [id number] [place] [address]- 3449 Feb, [facility] [place] [facility] [address] [id number] [place] [address]- 0053 Feb, [facility] [place] [facility] [address] [id number] [place] [address]- 0375 Feb, [facility] [place] [facility] [address] [id number] [place] [address]- 4030 30 Jan, 2013 [facility] [place] [facility] [address] [id number] [place] [address]- 7595 26 Jan, 2013 [facility] [place] [facility] [address] [id number] [place] [address]- 2207 24 Jan, 2013 [facility] [place] [facility] [address] [id number] [place] [address]- 1650 23 Jan, 2013 [facility] [place] [facility] [address] [id number] [place] [address]- 0180 17 Jan, 2013 [facility] [place] [facility] [address] [id number] [place] [address]- 6793 Dec, [facility] [place] [facility] [address] [id number] [place] [address]- 1254 Dec, [facility] [place] [facility] [address] [id number] [place] [address]- 0234 16 Dec, 2012 [facility] [place] [facility] [address] [id number] [place] [address]- 6456 15 Dec, 2012 [facility] [place] [facility] [address] [id number] [place] [address]- 5311 14 Dec, 2012 [facility] [place] [facility] [address] [id number] [place] [address]- 6071 Dec, [facility] [place] [facility] [address] [id number] [place] [address]- 2861 Dec, [facility] [place] [facility] [address] [id number] [place] [address]- 2546 17 Nov, 2012 [facility] [address] [id number] [place] [address]- 2546 16 Nov, 2012 [facility] [address] [id number] [place] [address]- 2546 15 Nov, 2012 [facility] [address] [id number] [place] [address]- 2546 05 Nov, 2012 [facility] [address] [id number] [place] [address]- 2546 Nov, [facility] [address] [id number] [place] [address]- 0906 Oct, [facility] [address] [id number] [place] [address]- 8116 Oct, [facility] [address] [id number] [place] [address]- 2546 Oct, [facility] [address] [id number] [place] [address]- 6781 September, [facility] [address] [id number] [place] [address]- 4796 September, [facility] [address] [id number] [place] [address]- 9766 September, [facility] [address] [id number] [place] [address]- 2546 September, [facility] [address] [id number] [place] [address]- 2546 September, [facility] [address] [id number] [place] [address]- 2546 September, [facility] [address] [id number] [place] [address]- 2546 September, [facility] [address] [id number] [place] [address]- 0755 Aug, [facility] [address] [id number] [place] [address]- 9139 23 Aug, 2012 [facility] [place] [facility] [address] [id number] [place] [address]- 8902 11 Aug, 2012 [facility] [place] [facility] [address] [id number] [place] [address]- 9262 29 Jul, 2012 [facility] [place] [facility] [address] [id number] [place] [address]- 1362 27 Jul, 2012 [facility] [place] [facility] [address] [id number] [place] [address]- 4421 26 Jul, 2012 [facility] [place] [facility] [address] [id number] [place] [address]- 1048 20 Jul, 2012 [facility] [place] [facility] [address] [id number] [place] [address]- 9152 18 Jul, 2012 [facility] [place] [facility] [address] [id number] [place] [address]- 2767 18 Jul, 2012 [facility] [place] [facility] [address] [id number] [place] [address]- 3883 Jul, [facility] [place] [facility] [address] [id number] [place] [address]- 1326 28 Jun, 2012 [facility] [place] [facility] [address] [id number] [place] [address]- 9117 Jun, [facility] [place] [facility] [address] [id number] [place] [address]- 6243 Jun, [facility] [place] [facility] [address] [id number] [place] [address]- 2281 20 Jun, 2012 [facility] [place] [facility] [address] [id number] [place] [address]- 8453 15 Jun, 2012 [facility] [place] [facility] [address] [id number] [place] [address]- 4537 15 Jun, 2012 [facility] [place] [facility] [address] [id number] [place] [address]- 9126 13 Jun, 2012 [facility] [address] [id number] [place] [address]- 0116 Jun, [facility] [address] [id number] [place] [address]- 2546 Jun, [facility] [address] [id number] [place] [address]- 2546 Jun, [facility] [address] [id number] [place] [address] 2546 May, [facility] [address] [id number] [place] [address]- 8086 May, [facility] [address] [id number] [place] [address]- 5695 May, [facility] [address] [id number] [place] [address]- 9938 May, [facility] [address] [id number] [place] [address]- 6106 May, [facility] [address] [id number] [place] [address]- 1766 May, [facility] [address] [id number] [place] [address]- 5282 Apr, [facility] [address] [id number] [place] [address] 2546 31 Apr, 2012 [facility] [address] [id number] [place] [address] 2546 Apr, [facility] [place] [facility] [address] [id number] [place] [address] 2546 Apr, [facility] [place] [facility] [address] [id number] [place] [address]- 2546 Apr, [facility] [address] [id number] [place] [address]- 0856 Apr, [facility] [place] [facility] [address] [id number] [place] [address]- 6152 Apr, [facility] [place] [facility] [address] [id number] [place] [address]- 6827 Mar, [facility] [place] [facility] [address] [id number] [place] [address]- 8935 Mar, [facility] [place] [facility] [address] [id number] [place] [address]- 1435 Mar, [facility] [place] [facility] [address] [id number] [place] [address]- 5565 Mar, [facility] [place] [facility] [address] [id number] [place] [address]- 4690 Mar, [facility] [place] [facility] [address] [facility] [id number] [place] [address]- 9289 Mar, [facility] [place] [facility] [address] [id number] [place] [address]- 7263 Mar, [facility] [place] [facility] [address] [id number] [place] [address]- 5357 Mar, [facility] [place] [facility] [address] [id number] [place] [address]- 3844 16 Mar, 2012 [facility] [place] [facility] [address] [id number] [place] [address]- 3580 16 Mar, 2012 [facility] [place] [facility] [address] [id number] [place] [address]- 7960 16 Mar, 2012 [facility] [place] [facility] [address] [id number] [place] [address]- 2095 Mar, [facility] [place] [facility] [address] [id number] [place] [address]- 2124 Mar, [facility] [place] [facility] [address] [facility] [id number] [place] [address]- 8034 Mar, [facility] [place] [facility] [address] [id number] [place] [address]- 5249 Mar, [facility] [place] [facility] [address] [id number] [place] [address]- 9029 Mar, [facility] [place] [facility] [address] [id number] [place] [address]- 4442 Mar, [facility] [place] [facility] [address] [id number] [place] [address]- 8651 Feb, [facility] [place] [facility] [address] [id number] [place] 1787 Feb, [facility] [place] [facility] [address] [id number] [place] [address]- 9189 Feb, [facility] [place] [facility] [address] [id number] [place] [address]- 4797 Feb, [facility] [place] [facility] [address] [id number] [place] [address]- 5890 Feb, [facility] [place] [facility] [address] [id number] [place] [address]- 4981 Feb, [facility] [place] [facility] [address] [id number] [place] [address]- 4472 Feb, [facility] [place] [facility] [address] [facility] [id number] [place] [address]- 4232 Feb, [facility] [place] [facility] [address] [id number] [place] [address]- 7045 Feb, [facility] [place] [facility] [address] [id number] [place] [address]- 4731 Feb, [facility] [place] [facility] [address] [id number] [place] [address]- 0913 Feb, [facility] [place] [facility] [address] [facility] [id number] [place] [address]- 2854 Jan, [facility] [place] [facility] [address] [id number] [place] [address]- 1524 Jan, [facility] [place] [facility] [address] [id number] [place] [address]- 8683 13 Jan, 2012 [facility] [place] [facility] [address] [id number] [place] [address]- 7609 12 Jan, 2012 [facility] [place] [facility] [address] [id number] [place] [address]- 7286 07 Jan, 2012 [facility] [place] [facility] [address] [id number] [place] [address]- 6813 Dec, [facility] [place] [facility] [address] [id number] [place] [address]- 5125 24 Dec, 2011 [facility] [place] [facility] [address] [id number] [place] [address]- 4129 Dec, [facility] [place] [facility] [address] [id number] [place] [address]- 0812 Dec, [facility] [place] [facility] [address] [id number] [place] [address]- 6598 Dec, [facility] [place] [facility] [address] [id number] [place] [address]- 6867 Dec, [facility] [place] [facility] [address] [id number] [place] [address]- 9340 Dec, [facility] [place] [facility] [address] [id number] [place] [address]- 9762 Dec, [facility] [place] [facility] [address] [id number] [place] [address]- 0324 Nov, [facility] [place] [facility] [address] [id number] [place] [address] Nov, [facility] [place] [facility] [address] [id number] [place] [address] Nov, [facility] [place] [facility] [address] [id number] [place] [address] Nov, [facility] [place] [facility] [address] [id number] [place] [address] Nov, [facility] [address] [id number] [place] [address] Oct, [facility] [address] [id number] [place] [address] Oct, [facility] [address] [id number] [place] [address] September[facility] [place] [facility] [address] [id number] [place] [address] September, [facility] [address] [id number] [place] [address] September, [facility] [address] [id number] [place] [address] September, [facility] [address] [id number] [place] [address] September, [facility] [address] [id number] [place] [address] September, [facility] [address] [id number] [place] [address] September, [facility] [address] [id number] [place] [address] September, [facility] [place] [facility] [address] [id number] [place] [address] September, [facility] [place] [facility] [address] [id number] [place] [address] September, [facility] [place] [facility] [address] [id number] [place] [address] September, [facility] [place] [facility] [address] [id number] [place] [address] September, [facility] [place] [facility] [address] [id number] [place] [address] September, [facility] [place] [facility] [address] [id number] [place] [address] September, [facility] [address] [id number] [place] [address] 24 Aug, 2011 [facility] [address] [id number] [place] [address] 20 Aug, 2011 [facility] [address] [id number] [place] [address]- [address]26 13 Aug, 2011 [facility] [address] [id number] [place] [address]- [address]6 11 Aug, 2011 [facility] [address] [id number] [place] [address]- [address] 23 Jul, 2011 [facility] [address] [id number] [place] [address] 13 Jul, 2011 [facility] [address] [id number] [address] 13 Jul, 2011 [facility] [address] [facility] [id number] [place] [address] 28 Jun, [address] [facility] [address] [id number] [id number] Jun, 2011 [facility] [address] [id number] [place] [address] 13 Jun, 2011 [facility] [place] [facility] [address] [id number] [address] 10 Jun, 2011 [facility] [address] [id number] [address] 07 Jun, 2011 [facility] [place] [facility] [address] [facility] [id number] [place] [address]- [address] 07 Jun, 2011 [facility] [address] [facility] [id number] [place] [address]- [address]46 03 Jun, 2011 [facility] [address] [id number] [address] Jun, [facility] [address] [id number] [place] [address] May, [facility] [place] [facility] [address] [id number] [place] [address]- [address]206 May, [facility] [address] [id number] [place] [address]- 8074 May, [facility] [place] [facility] [address] [id number] [place] [address]- [address] May, [facility] [address] [id number] [place] [address]- [address] May, [facility] [place] [facility] [address] [id number] [place] [address]- [address]053 May, [facility] [address] [id number] [place] [address]- 8936 May, [facility] [place] [facility] [address] [id number] [place] [address]- 1345 May, [facility] [place] [facility] [address] [id number] [place] [address]- 3773 May, [facility] [place] [facility] [address] [id number] [place] [address]- 1610 May, [facility] [place] [facility] [address] [id number] [place] [address]- 99[address] May, [facility] [place] [facility] [address] [id number] [place] [address] May, [facility] [place] [facility] [address] [id number] [place] [address]- 5273 May, [facility] [place] [facility] [address] [id number] [place] [address]- 8716 May, [facility] [place] [facility] [address] [id number] [place] [address]- 0626 Apr, [facility] [place] [facility] [address] [id number] [place] [address]- 9273 16 Apr, 2011 [facility] [place] [facility] [address] [id number] [place] [address]- [address]854 05 Apr, 2011 [facility] [place] [facility] [address] [id number] [place] [address] 17 Mar, 2011 [facility] [place] [facility] [address] [id number] [place] [address]- 8566 Mar, [facility] [place] [facility] [address] [id number] [place] [address]- 8748 31 Feb, 2011 [facility] [place] [facility] [address] [id number] [place] [address]- 1240 Feb, [facility] [place] [facility] [address] [id number] [place] [address]- 4198 Feb, [facility] [place] [facility] [address] [id number] [place] [address]- 2361 Feb, [facility] [place] [facility] [address] [id number] [place] [address]- [address]22 Feb, [facility] [place] [facility] [address] [id number] [place] [address]- 9846 28 Apr, 2010 [facility] [place] [facility] [address] [id number] [place] [address]- 1164 22 Apr, 2010 [facility] [place] [facility] [address] [id number] [place] [address]- 7946 16 Apr, 2010 [facility] [place] [facility] [address] [id number] [place] [address] 2544 15 Apr, 2010 [facility] [place] [facility] [address] [id number] [place] [address]- 8666 15 Apr, 2010 [facility] [place] [facility] [address] [id number] [place] [address]- 8096 Apr, [facility] [place] [facility] [address] [facility] [id number] [place] [address] 24 Mar, 2010 [facility] [place] [facility] [id number] [address]- [address] 17 Mar, 2010 [facility] [facility] [place] [id number], [place] [address] Mar, [facility] [place] [address] [address] 28 Feb, 2010 [facility] [place] [id number] [place] [phone] Feb, [facility] [place] [address] [address] Feb, [facility] [place] [id number] [place] [address] Feb, [facility] [place] [address] [address] Dec, [facility] [place] [id number] [place] [address] Dec, [facility] [place] [id number] [place] [address] Oct, [facility] [place] [address] [address] Mar, [facility] [place] [address] [address] Mar, [facility] [place] [address] [address] September, IMMUNIZATIONS No Known Immunizations SOCIAL HISTORY Never Assessed REASON FOR VISIT change in provider PLAN OF CARE VITAL SIGNS MEDICATIONS Unknown [...] surgery-Dr. Avitia-left foot surgery bunionectomy, reduction of pedroe 02/2012 Surgical History Foot surgery. Removal of hardware 10/2014 Surgical History Left foot surgery 10/2014 Surgical History left knee arthroplasty 12/2014 Hospitalization History Hospitalization for surgery only Hospitalization History ICU-COPD,UTI 05/2015
[2018-04-18] MEDS ORDERED: HEParin (CATH LAB) 2,000 ML IV ONE (07:55)
[2018-04-18] MEDS ORDERED: LIDOCAINE 1% INJ 20 ML 20 ML VIAL ONE (07:55)
[2018-04-18] MEDS ORDERED: NS IV 1000 ML 1,000 ML ONE (07:55)
[2018-04-18] MEDS ORDERED: NS IV 1000 ML 1,000 ML IV SCH ×2 (08:15→12:08)
[2018-04-18 08:25] LABS: HEMOGLOBIN 13.1 G/DL (11.5-16.0); MEAN PLATELET VOLUME 9.8 FL (7.4-10.4); RED BLOOD COUNT 3.84 10^6/uL (4.35-5.85); WHITE BLOOD COUNT 9.4 10^3/uL (4.3-11.0)
[2018-04-18 08:29] LABS: CLARITY,URINE SLIGHTLY CLOUDY; COLOR,URINE BROWN; GLUCOSE, URINE (UA) NEGATIVE (NEGATIVE); KETONES,URINE NEGATIVE (NEGATIVE); LEUKOCYTE ESTERASE ,URINE 3+ (NEGATIVE); NITRITE,URINE POSITIVE (NEGATIVE); PH,URINE 8 (5-9); PROTEIN,URINE 3+ (NEGATIVE); UROBILINOGEN,URINE 4 MG/DL (NORMAL)
--- NOTE | 2018-04-18 08:38 | Diagnostic Imaging Report ---
PATIENT HISTORY: Chest pain. Cad htn hlp. TECHNIQUE: Single frontal view of the chest. COMPARISON: 02/13/2018. FINDINGS: The lung volumes are normal. No focal consolidation is seen. No large pleural effusion or pneumothorax is seen. The cardiomediastinal silhouette is normal in size and contour. No acute osseous abnormality is seen. IMPRESSION: No acute pulmonary abnormality seen. Dictated by: Dictated on workstation # [id number]
[2018-04-18 08:39] LABS: INR 0.9 (0.8-1.4); PROTHROMBIN TIME PATIENT 12.5 SEC (12.2-14.7)
[2018-04-18 08:42] LABS: BACTERIA,URINE LARGE /HPF; BILIRUBIN,URINE 2+ (NEGATIVE); RBC,URINE 0-2 /HPF; TRIPLE PHOSPHATE CRYSTAL,UR RARE /LPF; WBC,URINE TNTC /HPF
[2018-04-18 08:47] LABS: ALANINE AMINOTRANSFERASE 30 U/L (0-55); ALBUMIN 4.1 GM/DL (3.2-4.5); ALKALINE PHOSPHATASE 74 U/L (40-136); BILIRUBIN,TOTAL 0.4 MG/DL (0.1-1.0); BUN/CREATININE RATIO 11; CALCIUM 9.2 MG/DL (8.5-10.1); CARBON DIOXIDE 22 MMOL/L (21-32); CHLORIDE 107 MMOL/L (98-107); CHOLESTEROL 149 MG/DL (< 200); CREATININE SERUM 0.82 MG/DL (0.60-1.30); GFR ESTIMATED > 60; GLUCOSE 97 MG/DL (70-105); HDL CHOLESTEROL 60 MG/DL (40-60); POTASSIUM 2.9 MMOL/L (3.6-5.0); SODIUM 139 MMOL/L (135-145); TOTAL PROTEIN 7.3 GM/DL (6.4-8.2); TRIGLYCERIDES 97 MG/DL (<150); VLDL CHOLESTEROL 19 MG/DL (5-40)
[2018-04-18] MEDS ORDERED: POTASSIUM CL 10MEQ/50ML IVPB 100 ML IV ONE ×2 (09:44→11:51)
[2018-04-18] MEDS: POTASSIUM CL 10MEQ/50ML IVPB 50 ML IV SCH ×4 (09:48→13:47)
[2018-04-18] MEDS ORDERED: fentaNYL INJECTION 100 MCG/2 ML AMP ONE (11:15)
[2018-04-18] MEDS ORDERED: MIDAZOLAM 5 MG/5 ML (VERSED) VIAL ONE ×2 (11:15→11:58)
--- NOTE | 2018-04-18 11:19 | Cardiac Procedure Note-CS/ASA ---
Pre-Procedure Note Pre-Op Procedure Note H&P Reviewed The H&P was reviewed, patient examined and no changes noted. Date H&P Reviewed: Apr 18, 2018 Time H&P Reviewed: 11:19 Conscious Sedation Pre-Proced Time 11:19 ASA Score 3 For ASA 3 and 4: Consider anesthesia and medical clearance. Also, for patients with a history of failed moderate sedation consider anesthesia. Airway Lungs Heart ASA score ASA 1: a normal healthy patient ASA 2: a patient with a mild systemic disease (mid diabetes, controlled hypertension, obesity x ASA 3: a patient with a severe systemic disease that limits activity (angina , COPD, prior Myocardial infarction) ASA 4: a patient with an incapacitating disease that is a constant threat to life (CHF, renal failure) ASA 5: a moribund patient not expected to survive 24 hrs. (ruptured aneurysm) ASA 6: a declared brain patient whose organs are being harvested. For emergent operations, add the letter E after the classification Mallampati Classification Grade 3 Sedation Plan Analgesia, Amnesia, Plan communicated to team members, Discussed options with patient/fam, Discussed risks with patient/fam The patient is an appropriate candidate to undergo the planned procedure, sedation, and anesthesia. The patient immediately re-assessed prior to indication. JOYCE TURNER MD Apr 18, 2018 11:19
--- NOTE | 2018-04-18 12:12 | Discharge Inst-Post CATH ---
Discharge Inst-CATH Post Cardiac Cath D/C Inst Follow Up/Plan Appointment with Dr. Best's office in 2-4 weeks CARDIAC CATH DISCHARGE INSTRUCTIONS *Hold Metformin for 48 hours post heart cath. ACTIVITY * Go Home directly and rest. * Limit activity of the leg (or wrist if it was used) for 7 days including aerobics, swimming, jogging, bicycling, etc. * Restrict stair-climbing for 7 days if possible, if not, climb up with your non -cath leg, then bring together on the same step. * Avoid lifting, pushing, pulling or excessive movement of the affected extremity for 7 days. * Customary sexual activity may be resumed after 2 days-use caution not to use a position that strains or causes pain to the affected extremity. * No driving for 24 hours. * NO SMOKING. * Avoid straining for bowel movements for 7 days. * Gentle walking on level ground is allowed. * Returning to work will depend on the type of procedure and the results. Your doctor will discuss this with you. CALL YOUR DOCTOR FOR ANY OF THE FOLLOWING: *If bleeding from the puncture site occurs- Apply gentle pressure to site with clean cloth and call your doctor or EMS. * If a knot or lump forms under the skin, increases in size, or causes pain. * If bruising appears to be worsening or moving further down your leg instead of disappearing. * Temperature above 101 F. CARE OF YOUR GROIN INCISION; * Bruising or purple discoloration of the skin near the puncture site is common. * You may shower only, no bathtub bathing for 5 days. Be careful to avoid slipping as your leg may feel stiff. * If a closure device was used on your femoral artery, please see the attached guide regarding care of the device and your leg. * Leave the dressing on, until removed by office staff. CARE OF YOUR WRIST INCISION; * Bruising or purple discoloration of the skin near the puncture site is common. * You may shower. * DO NOT submerge wrist. * Leave dressing on, until removed by office staff.. JOYCE BEST MD Apr 18, 2018 12:12
[2018-04-18] MEDS ORDERED: CIPR-225 PO (12:14)
[2018-04-18] MEDS ORDERED: PATIENT MAY USE OWN MEDS, ALL PO SCH (12:15)
--- NOTE | 2018-04-18 12:19 | Cardiac Cath Report ---
Cardiac Cath Report Physician (s)/It Web Development Consultant (s) Physician JOYCE TURNER MD Pre-Procedure Diagnosis Pre-Procedure Diagnosis: chest pain, coronary artery disease Post-Procedure Note Procedure Start Date: Apr 18, 2018 Name of Procedure: left heart catheterization Findings/Procedure Note PROCEDURE NOTE: 67-year-old lady with history of coronary artery disease had myocardial infarction and stent to the circumflex artery had a lesion in the LAD, had a stress test which was showing female pattern with breast attenuation affecting the anterior wall, no other ischemia was noted, continue to be symptomatic, I decided to proceed with diagnostic cardiac catheterization. After explaining the procedure to the patient, all pros and cons were explained , all questions were answered. The patient signed the consent and then she was placed on the cardiac catheterization laboratory. Groin was prepped SL fashion local anesthesia was used. Sheath placed in the right femoral artery. Bernard right and left catheter were used to access the coronary system. Pigtail was used to access the left ventricular cavity. Left ventriculogram was not done, pressure was measured At the end of the procedure the sheath was removed. Closure device FINDINGS: Hemodynamics LV 161/9, end-diastolic pressure of 9 Aorta 152/66 mean of 103 ANATOMY: Left Main his free of obstructive disease Left Anterior Descending is tortuous with 60 percent stenosis at the mid to distal portion, the artery is less than 1.5 mm in diameter. Left Circumflex has multiple patent stents with mild to moderate disease distally Right Coronory Artery is tortuous with mild disease nonobstructive disease CONCLUSION: 1. Patent stent in the circumflex artery 2. Tortuous LAD with 60-70 percent stenosis at the mid to distal portion, the artery is fairly small less than 1.5 mm in diameter 3. Tortuous right coronary artery with mild disease nonobstructive disease 4. Normal left ventricular end-diastolic pressure DISCUSSION AND RECOMMENDATION: Medical therapy is recommended, the LAD is fairly small artery, not amendable to intervention Anesthesia Type: Conscious Sedation Estimated blood loss (mL): 15 ml Contrast Amount: 35 ml Total Radiation Dose: 105 mGy Post-Procedure Diagnosis Post-operative diagnosis: chest pain nonspecific etiology Coronary artery disease Urinary tract infection Hypertension Hyperlipidemia JOYCE TURNER MD Apr 18, 2018 12:19
[2018-04-18] MEDS ORDERED: oxyCODONE/APAP 5/325MG (PERCOCET 5) TABLET PO NR (13:45)
== END 2018-04-18 17:16 | disposition home or self-care (01) ==
LOC: CATH 07:35 → ICU 12:30 → CATH 17:16
PROVIDERS: ATTEND Internal Medicine Cardiovascular Disease
DX: R07.9 Chest pain, unspecified (principal); I25.10 Atherosclerotic heart disease of native coronary artery without angina pectoris; N39.0 Urinary tract infection, site not specified; I10 Essential (primary) hypertension; E78.2 Mixed hyperlipidemia; J44.9 Chronic obstructive pulmonary disease, unspecified; F17.210 Nicotine dependence, cigarettes, uncomplicated; I25.2 Old myocardial infarction; Z95.5 Presence of coronary angioplasty implant and graft; Z79.82 Long term (current) use of aspirin; Z79.899 Other long term (current) drug therapy
CPT/HCPCS: 36415; 71045; 80053; 80061; 81000; 85027; 85610; 85730; 87077; 87081; 87088; 87186; 93458

== ENCOUNTER 2018-09-17 14:50 | Outpatient (CLI) | payer MEDICARE, MEDICAID ==
[~2018-09-17] VITALS: Ht 162.6 cm; Wt 64.9 kg
[~2018-09-17 14:50] MED LIST changes: -AMLO10TA6 PO; +AMLO10TA7 PO; -AMLO5TAB7 PO; +AMLO5TAB9 PO; +LOSA100T57 PO; -LOSA100T8 PO
[2018-09-17 15:02] VITALS: BP 136/74
[2018-09-17] MEDS ORDERED: DICY20TA10 PO (15:24)
[2018-09-17] MEDS ORDERED: ATOR40TA70 PO (15:24)
[2018-09-17] MEDS ORDERED: CHLO10CA6 PO (15:24)
[2018-09-17] MEDS ORDERED: NITR-68 PO (15:24)
[2018-09-17] MEDS ORDERED: AMLO5TAB4 PO (15:24)
[2018-09-17] MEDS ORDERED: CLOP75TA28 PO (15:24)
[2018-09-17] MEDS ORDERED: METO-370 PO (15:24)
[2018-09-17] MEDS ORDERED: GABA-488 PO (15:24)
[2018-09-17] MEDS ORDERED: ASPI-586 PO (15:25)
== END 2018-09-17 15:20 | disposition home or self-care (01) ==
LOC: PREOP 14:50
PROVIDERS: ATTEND Orthopaedic Surgery
DX: Z01.818 Encounter for other preprocedural examination (principal)
CPT/HCPCS: 87081

== ENCOUNTER 2018-09-19 07:24 | Day surgery (SDC) | payer MEDICARE, MEDICAID ==
--- NOTE | 2018-09-14 05:16 | HISTORY AND PHYSICAL ---
DATE OF SERVICE: ADMISSION HISTORY AND PHYSICAL DATE OF ADMISSION: 09/19/2018. This will be for outpatient surgery on 09/19/2018 for left knee arthroscopy. HISTORY OF PRESENT ILLNESS: The patient is a 67-year-old female with progressively worsening left knee pain. She injured her left knee four weeks ago when she was squatting. When she arose, she felt a pop and has had pain and swelling in her knee since that point. She reports no antecedent pain, but does report activity limitations since the time of her injury. Due to functional impairment, the patient has elected to proceed with surgical intervention. REVIEW OF SYSTEMS: No chest pain, no shortness of breath and no dysuria. PAST MEDICAL HISTORY: Constipation, hypertension, irritable bowel syndrome, kidney stones, UTI, migraine headache, chronic pain, back pain, allergies, depression and myocardial infarction. PAST SURGICAL HISTORY: Hysterectomy, , right total knee arthroplasty, tonsillectomy, abdominal adhesion, left foot bunionectomy and coronary stent placement. FAMILY HISTORY: Significant for coronary atherosclerosis, thyroid disorder and cardiovascular disease. PRIMARY CARE PROVIDER: Dr. Cho. MEDICATIONS: 1. Linzess. 2. Norvasc. 3. Chlordiazepoxide. 4. Ibuprofen. 5. Losartan. 6. Lisinopril. 7. Atorvastatin. 8. Spiriva. 9. Delzicol. 10. Hydrocodone. 11. Percocet. 12. Levaquin. 13. . 14. Effexor. 15. Dicyclomine. 16. Cymbalta. 17. Potassium. 18. Zantac. 19. Lyrica. 20. Macrodantin. ALLERGIES: FENTANYL, SULFA and DEMEROL. SOCIAL HISTORY: The patient denies alcohol and tobacco use. RADIOGRAPHS: Reveal posterior loose body with minimal medial and patellofemoral joint space narrowing. PHYSICAL EXAMINATION: GENERAL: The patient is well developed, well-nourished, in no acute distress. HEENT: Normocephalic and atraumatic. Pupils are equal, round and reactive to light. Oropharynx is clear. NECK: Supple, no lymphadenopathy. LUNGS: Clear to auscultation bilaterally. HEART: Regular rate and rhythm. ABDOMEN: Soft, nontender and nondistended. EXTREMITIES: The left knee demonstrates moderate effusion. She is tender along the medial joint line and has pain medially with click noted with Zack's maneuver. She has mild patellofemoral crepitus. Range of motion is 0/2/140. She is ligamentously stable in all planes. She ambulates with antalgic gait. IMPRESSION: Left knee medial meniscus tear with loose body. PLAN: Left knee arthroscopy, partial medial meniscectomy, chondroplasty and loose body removal. We discussed the risks, benefits, options, ramifications and recovery at length. She understands and wishes to proceed. Job ID: [id number] DocumentID: [id number] Dictated Date: 09/13/2018 12:22:17 Director Of Safety And Security Date: 09/13/2018 12:59:46 Dictated By: ALBARO PARADA MD
[~2018-09-19] VITALS: Ht 162.6 cm; Wt 64.9 kg
[2018-09-19] VITALS (12 sets, daily range): BP systolic 91–176; BP diastolic 42–95
[~2018-09-19 07:24] MED LIST changes: +AMLO5TAB4 PO; +ASPI-586 PO; +GABA-488 PO; +NITR-68 PO
--- NOTE | 2018-09-19 07:34 | Progress Note-Pre Operative ---
Pre-Operative Progress Note H&P Reviewed The H&P was reviewed, patient examined and no changes noted. Date Seen by Provider: September 19, 2018 Time Seen by Provider: 07:34 Date H&P Reviewed: September 19, 2018 Time H&P Reviewed: 07:34 Pre-Operative Diagnosis: left knee medial meniscus tear and chondromalacia ALBARO PARADA MD September 19, 2018 07:34
--- NOTE | 2018-09-19 07:35 | Progress Note-Post Operative ---
Post-Operative Progess Note Surgeon (s)/Manufacturers Representative (s) Surgeon ALBARO PARADA MD Manufacturers Representative: Fredrick Mathews Pre-Operative Diagnosis left knee medial meniscus tear and chondromalacia Post-Operative Diagnosis left knee medial and lateral meniscus tears and chondromalacia of the medial femoral condyle, medial tibial plateau and lateral femoral condyle Procedure & Operative Findings Date of Procedure 09/19/18 Procedure Performed/Findings left knee arthroscopic partial medial and lateral meniscectomies and chondroplasty of the medial femoral condyle, medial tibial plateau and lateral femoral condyle Anesthesia Type GETA Estimated Blood Loss Estimated blood loss (mL): minimal Specimens/Packing Specimens Removed none Packing: none ALBARO PARADA MD September 19, 2018 07:35
[2018-09-19] MEDS: LACTATED RINGERS 1,000 ML IV PRN ×2 (07:40→12:20)
[2018-09-19] MEDS ORDERED: ceFAZolin INJECTION 1,000 MG in WATER (STERILE) FOR INJECTION 10 ML IV ONE (07:45)
[2018-09-19] MEDS ORDERED: morphine PF (DURAMORPH) 10 MG/10 ML AMP ONE (08:04)
[2018-09-19] MEDS ORDERED: BUPIVACAINE 0.25% 30 ML (SENSORCAINE) VIAL ONE (08:05)
[2018-09-19] MEDS ORDERED: HYDROcodone/APAP 7.5 MG/325 MG (LORTAB, LORCET PLUS) TABLET PO PRN (08:15)
--- OUTSIDE RECORDS SUMMARY | 2018-09-19 08:53 | XMS REPORT ---
Author Author Migration, Doctor Organization [facility] Address Unknown Phone Unavailable Care Team Providers Care Silk Conditioner Name Role Phone Migration, Doctor Unavailable Unavailable PROBLEMS Type Condition ICD9-CM Code SRF12-QF Code Onset Dates Condition Status SNOMED Code Problem Hypokalemia E87.6 Active 457994872 Problem Generalized anxiety disorder F41.1 Active 47466636 Problem Pain in right knee M25.561 Active 34750747 Problem Right low back pain, with sciatica presence unspecified M54.5 Active 003347880 Problem Right foot pain M79.671 Active 99921902 Problem UTI symptoms R39.9 Active 50544021 Problem Essential hypertension I10 Active 05104678 Problem Gastroesophageal reflux disease without esophagitis K21.9 Active 773302261 Problem Weight decrease R63.4 Active 650316650 Problem Depression, unspecified depression type F32.9 Active 37387436 Problem Right upper quadrant abdominal pain R10.11 Active 463788350 Problem Tobacco abuse Z72.0 Active 44380121 Problem Insomnia, unspecified type G47.00 Active 904555718 Problem Weight loss R63.4 Active 206454549 Problem Post-traumatic stress disorder, chronic F43.12 Active 36621994 Problem Pulmonary emphysema, unspecified emphysema type J43.9 Active 01234564 Problem Neuropathy G62.9 Active 091878850 Problem Anxiety F41.9 Active 38917487 Problem Other emphysema J43.8 Active 90463693 Problem Other chronic pain G89.29 Active 60566725 Problem Chronic pain G89.29 Active 59433642 Problem Opioid use disorder, moderate, dependence F11.20 Active 86047786 Problem Back pain M54.9 Active 924012309 Problem Bone pain M89.8X9 Active 52099381 Problem Panic attacks F41.0 Active 104952455 Problem Kidney stones N20.0 Active 27482762 Problem Renal calculus, right N20.0 Active 10017999 Problem Generalized abdominal pain R10.84 Active 396250051 ALLERGIES No Information ENCOUNTERS Encounter Location Date Diagnosis [facility] [address], [place] [address] Feb, [facility] [id number] [place] [address] 83788- 0728 Dec, [facility] [id number] [place] [address] 17085- 2018 Dec, [facility] [id number] [place] [address] 61865- 0500 Dec, Medicare welcome exam Z00.00 [facility] [id number] [place] [address] 80419- 5158 17 Nov, 2017 Opioid use disorder, moderate, dependence F11.20 [facility] [id number] [place] [address] 23429- 2072 16 Nov, 2017 Pelvic pain R10.2 ; Acute pyelonephritis N10 and Essential hypertension I10 [facility] [id number] [place] [address] 26972- 6780 28 Oct, 2017 Medicare welcome exam Z00.00 [facility] [id number] [place] [address] 52767- 8609 Oct, Gross hematuria R31.0 ; Urinary tract infection without hematuria, site unspecified N39.0 and Weakness R53.1 [facility] [id number] [place] [address] 66380- 5234 Oct, [facility] [id number] [place] [address] 77984- 7834 Oct, [facility] [id number] [place] [address] 48096- 8846 Oct, Medicare welcome exam Z00.00 [facility] [id number] [place] [address] 68835- 8596 September, Back pain M54.9 and Right anterior knee pain M25.561 [facility] [id number] [place] [address] 53246- 4386 September, [facility] [address], [place] [address] 5510 September, [facility] [id number] [place] [address] 81681- 5842 September, Essential hypertension I10 [facility] [id number] [place] [address] 41215- 9229 September, [facility] [id number] [place] [address] 37925- 5487 September, RLQ abdominal pain R10.31 ; Low back pain M54.5 and Other chronic pain G89.29 [facility] [id number] [place] [address] 52030- 9623 Aug, Medicare welcome exam Z00.00 [facility] [id number] [place] [address] 57670- 3581 Aug, [facility] [id number] [place] [address] 66717- 6216 Aug, Acute pyelonephritis N10 and Medicare welcome exam Z00.00 [facility] [id number] [place] [address] 85241 -1577 Aug, Dysuria R30.0 and Acute pyelonephritis N10 [facility] [address], [place] [address] 2970 Aug, [facility] [id number] [place] [address] 57472- 3561 Aug, [facility] [id number] [place] [address] 77090- 1101 Aug, [facility] [id number] [place] [address] 99156- 4605 Aug, [facility] [address], [place] [address]- 2898 Jul, [facility] [id number] [place] [address] 91916- 8694 Jul, Renal calculus, right N20.0 and Medicare welcome exam Z00.00 [facility] [id number] [place] [address] 79190 -9115 Jul, Dysuria R30.0 and Renal calculus, right N20.0 [facility] [id number] [place] [address] 02561- 0734 Jul, Medicare welcome exam Z00.00 [facility] [id number] [place] [address] 79831- 0281 Jun, Gastroesophageal reflux disease without esophagitis K21.9 and Generalized abdominal pain R10.84 [facility] [id number] [place] [address] 63057- 3713 Jun, Medicare welcome exam Z00.00 [facility] [id number] [place] [address] 36331- 1833 Jun, [facility] [id number] [place] [address] 07949- 8636 Jun, Medicare welcome exam Z00.00 and Encounter for screening mammogram for malignant neoplasm of breast Z12.31 [facility] [id number] [place] [address] 26990- 5942 Jun, Chronic pain G89.29 [facility] [id number] [place] [address] 04969- 3684 May, [facility] [id number] [place] [address] 83148- 3189 May, Pelvic pain R10.2 [facility] [id number] [place] [address] 08587- 0051 May, Pelvic pain R10.2 [facility] [id number] [place] [address] 65111 -5184 May, Renal calculus, right N20.0 [facility] [id number] [place] [address] 35572- 4450 May, Hematuria, unspecified type R31.9 and Nephrolithiasis N20.0 [facility] [id number] [place] [address] 31018 -9908 May, Dysuria R30.0 and Nephrolithiasis N20.0 [facility] [id number] [place] [address] 78281- 5573 May, [facility] [id number] [place] [address] 33803 -0470 May, Abdominal pain R10.9 and Kidney stone N20.0 [facility] [id number] [place] [address] 26019- 8244 May, [facility] [id number] [place] [address] 50074- 4660 May, Chronic pain G89.29 and Panic attacks F41.0 [facility] [id number] [place] [address] 40535- 9037 May, Urinary tract infection without hematuria, site unspecified N39.0 [facility] [id number] [place] [address] 53883- 5611 Apr, Right lower quadrant abdominal pain R10.31 and Abnormal serum lipase level R74.8 [facility] [id number] [place] [address] 88282- 7448 Apr, Recurrent urinary tract infection N39.0 [facility] [id number] [place] [address] 35326- 3172 Apr, UTI symptoms R39.9 ; Recurrent urinary tract infection N39.0 and Pelvic pain R10.2 [facility] [id number] [place] [address] 87531- 2322 Apr, Chronic pain G89.29 and Panic attacks F41.0 [facility] [id number] [place] [address] 22090- 7728 Apr, Dysuria R30.0 [facility] [id number] [place] [address] 49206- 0617 Apr, [facility] [id number] [place] [address] 25001- 9136 Apr, Dysuria R30.0 and Urinary tract infection without hematuria , site unspecified N39.0 [facility] [id number] [place] [address] 37134- 7829 Mar, UTI symptoms R39.9 [facility] [id number] [place] [address] 14811- 8639 Mar, [facility] [id number] [place] [address] 48266- 0167 Mar, Panic attacks F41.0 and Chronic pain G89.29 [facility] [address] 50668- 3398 Mar, [facility] [id number] [place] [address] 44856- 0207 Mar, Dysuria R30.0 [facility] [id number] [place] [address] 67654- 3124 Mar, Dysuria R30.0 [facility] [id number] [place] [address] 41171- 8751 Feb, Chronic pain G89.29 ; Shortness of breath R06.02 ; Weight loss R63.4 ; Encounter for immunization Z23 ; Bone pain M89.8X9 ; Right anterior knee pain M25.561 and Cough R05 [facility] [id number] [place] [address] 00915- 2976 Feb, Shortness of breath R06.02 [facility] [id number] [place] [address] 68447- 4977 Feb, [facility] [id number] [place] [address] 14549- 2205 Feb, Panic attacks F41.0 and Chronic pain G89.29 [facility] [address] 07133- 8406 Feb, [facility] [address] 25002- 1061 04 Feb, 2017 Panic attacks F41.0 ; Shortness of breath R06.02 and Encounter for immunization Z23 [facility] [address] 87853- 4506 Jan, [facility] [address] 92120- 5137 15 Jan, 2017 Anxiety F41.9 and Chronic pain G89.29 [facility] [address] 63210- 3400 Dec, Anxiety F41.9 and Chronic pain G89.29 [facility] [address] 13407- 3310 Nov, Chronic pain G89.29 [facility] [address] 15865- 9144 Nov, Anxiety F41.9 [facility] [address] 60180- 4335 Nov, Chronic pain G89.29 ; Essential hypertension I10 and Other emphysema J43.8 [facility] [id number] [place] [address] 96835- 9075 Oct, Anxiety F41.9 [facility] [address] 30142- 3690 Oct, [facility] [address] 67316- 2775 Oct, Chronic pain G89.29 [facility] [address] 70609- 8830 September, Recurrent UTI N39.0 ; Neuropathy G62.9 and Anxiety F41.9 [facility] [id number] [place] [address] 32380- 8432 September, [facility] [id number] [place] [address] 75942- 9222 September, Chronic pain G89.29 [facility] [id number] [place] [address] 07299- 1058 September, [facility] [address] 53867- 7286 Aug, Post-traumatic stress disorder, chronic F43.12 ; Chronic urinary tract infection N39.0 ; Gastroesophageal reflux disease without esophagitis K21.9 ; Chronic pain G89.29 ; Essential hypertension I10 and Tobacco abuse Z72.0 [facility] [id number] [place] [address] 35394 -4586 Aug, [facility] [address] 71623- 1643 Aug, Chronic pain G89.29 [facility] [address] 57744- 0096 Aug, Insomnia, unspecified type G47.00 [facility] [id number] [place] [address] 52523- 0611 Aug, [facility] [id number] [place] [address] 68194- 0809 Jul, Chronic pain G89.29 [facility] [id number] [place] [address] 04028- 9101 Jul, [facility] [address] 52839- 0179 Jul, [facility] [id number] [place] [address] 85481- 3745 Jul, [facility] [address] 55587- 7695 15 Jul, 2016 Recurrent UTI (urinary tract infection) N39.0 [facility] [id number] [place] [address] 56104- 9330 14 Jul, 2016 [facility] [id number] [place] [address] 89021- 9201 27 Jun, 2016 Chronic pain G89.29 [facility] [id number] [place] [address] 91101- 7641 17 Jun, 2016 [facility] [id number] [place] [address] 32509- 6225 Jun, [facility] [id number] [place] [address] 20599- 3608 May, Chronic pain G89.29 [facility] [id number] [place] [address] 02972- 8501 May, Weight loss R63.4 and Shortness of breath R06.02 [facility] [id number] [place] [address] 41426- 2484 May, Chronic pain G89.29 ; Weight loss R63.4 and Tobacco abuse Z72.0 [facility] [id number] [place] [address] 11745- 5571 May, [facility] [id number] [place] [address] 42616- 5754 May, Hypoxia R09.02 [facility] [id number] [place] [address] 07795- 7964 May, [facility] [id number] [place] [address] 53870- 8452 May, Pulmonary emphysema, unspecified emphysema type J43.9 [facility] [id number] [place] [address] 84218 -8712 May, [facility] [id number] [place] [address] 97811- 1895 May, [facility] [id number] [place] [address] 75420- 1241 May, [facility] [address] 28890- 3624 May, Chronic pain G89.29 ; Encounter for immunization Z23 ; Right anterior knee pain M25.561 and Cough R05 [facility] [address] 39408- 5971 Apr, Chronic pain G89.29 [facility] [id number] [place] [address] 14555- 7110 Apr, [facility] [address] 80545- 1624 Apr, Generalized anxiety disorder F41.1 and Depression, unspecified depression type F32.9 [facility] [address] 99624- 8471 Apr, Chronic pain G89.29 ; Hypokalemia E87.6 and Insomnia, unspecified type G47.00 [facility] [id number] [place] [address] 53299- 5167 Apr, [facility] [id number] [place] [address] 92644- 6815 Apr, Chronic pain G89.29 [facility] [id number] [place] [address] 28226- 7605 Apr, [facility] [id number] [place] [address] 42305- 2362 Mar, [facility] [id number] [place] [address] 96812- 1409 Mar, Insomnia, unspecified type G47.00 [facility] [id number] [place] [address] 93033- 1860 Mar, Chronic pain G89.29 [facility] [id number] [place] [address] 09513- 1408 Mar, [facility] [address], [place] [address]- 7074 Feb, [facility] [address], [place] [address]- 3103 Feb, [facility] [id number] [place] [address] 11364- 6108 Feb, [facility] [id number] [place] [address] 06108- 1854 Feb, [facility] [id number] [place] [address] 19110- 2936 Feb, [facility] [id number] [place] [address] 61325- 9836 29 Jan, 2016 [facility] [id number] [place] [address] 81900- 5600 26 Jan, 2015 [facility] [address], [place] [address]- 3240 20 Jan, 2015 [facility] [id number] [place] [address] 98641- 2885 13 Jan, 2015 [facility] [address], [place] [address]- 8034 12 Jan, 2016 [facility] [id number] [place] [address] 76739- 2492 07 Jan, 2015 Chronic pain G89.29 [facility] [address], [place] [address]- 5644 Jan, 2015 Chronic pain G89.29 and Fibromyalgia M79.7 [facility] [address], [place] [address]- 2190 Dec, Depression, unspecified depression type F32.9 and Generalized anxiety disorder 300.02 [facility] [address], [place] [address]- 5306 Dec, Dysthymia F34.1 ; Insomnia, unspecified type G47.00 and Chronic pain G89.29 [facility] [address] [facility] [id number] [place] [address] 25064- 8636 Dec, Chronic pain G89.29 [facility] [id number] [place] [address] 64131 2546 Dec, Insomnia, unspecified type G47.00 [facility] [address] [facility] [id number] [place] [address] 57770 2543 Dec, Fibromyalgia M79.7 and Chronic pain G89.29 [facility] [id number] [place] [address] 95890- 5936 Dec, [facility] [id number] [place] [address] 29441 2546 Dec, [facility] [id number] [place] [address] 84384- 2741 Dec, [facility] [id number] [place] [address] 67015 2546 Dec, [facility] [id number] [place] [address] 91089- 1637 Dec, Chronic pain G89.29 [facility] [id number] [place] [address] 22054 2548 Dec, [facility] [id number] [place] [address] 90025 2548 Dec, [facility] [id number] [place] [address] 42722 2546 Dec, [facility] [id number] [place] [address] 14272 2543 Dec, Chronic pain G89.29 and Dysthymia F34.1 [facility] [id number] [place] [address] 54184 2544 Nov, [facility] [id number] [place] [address] 91066- 9401 Nov, Hypokalemia E87.6 and Chronic pain G89.29 [facility] [address] 02573- 1074 Nov, Back pain M54.9 and Pain in right knee M25.561 [facility] [address] 50530- 6500 Nov, [facility] [address] 72492- 2023 Nov, Chronic pain G89.29 [place] [address] 77883- 2501 Nov, Chronic pain G89.29 ; Weight loss R63.4 ; Bone pain M89.8X9 and Insomnia, unspecified type G47.00 [facility] [address] 53408- 4776 Nov, Chronic pain G89.29 [facility] [place] [address] 34621- 0269 Nov, Chronic pain G89.29 [facility] [place] [address] 94051- 1742 30 Oct, 2015 Chronic pain G89.29 [facility] [id number] [place] [address] 16446- 0547 Oct, UTI symptoms R39.9 [facility] [id number] [place] [address] 97989- 8924 27 Oct, 2015 Chronic pain G89.29 [facility] [address] 49191- 8689 20 Oct, 2015 Chronic pain G89.29 [facility] [place] [id number] [place] [address] 49033- 1112 13 Oct, 2015 Chronic pain G89.29 [place] [address] 27136- 2655 Oct, Right upper quadrant abdominal pain R10.11 [facility] [address] [place] [address]- 6301 Oct, Chronic pain G89.29 [facility] [address], [place] [address]- 2875 Oct, [facility] [id number] [place] [address] 94066- 7720 September, Chronic pain G89.29 [facility] [id number] [place] [address] 27324- 8593 September, Dysuria R30.0 and Urinary tract infection without hematuria , site unspecified N39.0 [facility] [id number] [place] [address] 65247- 2660 September, [facility] [id number] [place] [address] 19254- 2341 September, Dysuria R30.0 [facility] [id number] [place] [address] 74481- 5145 September, Chronic pain G89.29 [facility] [id number] [place] [address] 85412- 4641 September, Chronic pain G89.29 and Essential hypertension I10 [facility] [address] [address] September, [facility] [id number] [place] [address] 41794- 4622 September, [facility] [id number] [place] [address] 02120- 0801 September, [facility] [id number] [place] [address] 97951- 2965 Aug, UTI symptoms R39.9 [facility] [address] [address] Aug, Dysuria R30.0 [facility] [address] [address] Aug, [facility] [id number] [place] [address] 22991- 9301 Aug, [facility] [id number] [place] [address] 61971- 8512 Aug, [facility] [id number] [place] [address] 33612- 7275 Aug, Chronic pain G89.29 [facility] [id number] [place] [address] 54674- 1390 Aug, Dysthymia F34.1 [facility] [id number] [place] [address] 82245- 1689 Aug, Conjunctivitis, unspecified conjunctivitis type, unspecified laterality H10.9 [facility] [id number] [place] [address] 84757- 1342 Jul, Chronic pain G89.29 ; Back pain M54.9 ; Tobacco abuse Z72.0 and Weight decrease R63.4 [facility] [id number] [place] [address] 82941- 0619 Jul, [facility] [id number] [place] [address] 51902- 6916 Jul, [facility] [id number] [place] [address] 39182- 4810 24 Jul, 2015 Chronic pain G89.29 [facility] [address] [address] Jul, [facility] [id number] [place] [address] 19698- 7259 Jul, [facility] [id number] [place] [address] 55641- 8485 Jul, [facility] [id number] [place] [address] 10147- 0972 17 Jul, 2015 [facility] [address] [place] [address] 17 Jul, 2015 Chronic pain G89.29 [facility] [address] [address], [place] [address] 16 Jul, 2015 Chronic pain G89.29 [facility] [id number] [place] [address] 25123- 1227 15 Jul, 2015 [facility] [id number] [place] [address] 18456- 4193 Jul, [facility] [id number] [place] [address] 17615- 1111 Jul, [facility] [id number] [place] [address] 16911- 1079 Jul, [facility] [id number] [place] [address] 41246- 1808 Jun, [facility] [id number] [place] [address] 27410- 0298 Jun, Depression, unspecified depression type F32.9 [facility] [id number] [place] [address] 24793- 7854 Jun, Pain in right knee M25.561 [facility] [id number] [place] [address] 09340- 5819 24 Jun, 2015 Chronic pain G89.29 ; Back pain M54.9 ; Bone pain M89.8X9 and Weight loss R63.4 [facility] [id number] [place] [address] 58422- 1146 Jun, [facility] [id number] [place] [address] 40469- 4260 May, [facility] [address], [place] [address] 2071 May, UTI symptoms R39.9 ; Pain in right knee M25.561 ; Right low back pain, with sciatica presence unspecified M54.5 ; Right foot pain M79.671 ; Hypokalemia E87.6 and Screening, lipid Z13.220 [facility] [id number] [place] [address] 77892- 3094 May, [facility] [id number] [place] [address] 57423- 1052 May, [facility] [id number] [place] [address] 55652- 0178 Mar, [facility] [id number] [place] [address] 31192- 6458 Mar, [facility] [id number] [place] [address] 11649- 0979 Mar, Hypokalemia E87.6 [facility] [address] [address]- 5561 Mar, Pain in right leg M79.604 ; Encounter for immunization Z23 ; Pain in right knee M25.561 and Hypokalemia E87.6 [facility] [id number] [place] [address] 25880- 5168 Jan, [facility] [id number] [place] [address] 96539- 7076 Jan, [facility] [id number] [place] [address] 53214 2542 Jan, Abdominal pain, generalized 789.07 [facility] [id number] [place] [address] 72485 2548 Jan, Abdominal pain, generalized 789.07 [facility] [id number] [place] [address] 10835- 9167 Dec, [facility] [id number] [place] [address] 48365- 4316 Dec, [facility] [address], [place] [address] 6596 Dec, [facility] [id number] [place] [address] 79770- 0214 Nov, Hallux valgus 735.0 and Hammertoe 735.4 [facility] [address], [place] [address]- 7076 Nov, [facility] [id number] [place] [address] 27878- 4113 Nov, Hallux valgus 735.0 and Hammer toe 735.4 [facility] [id number] [place] [address] 98358- 0066 Oct, [facility] [id number] [place] [address] 42908- 3306 Oct, [facility] [id number] [place] [address] 88714- 0078 Oct, Pre-op evaluation V72.84 [facility] [address], [place] [address]- 2885 Oct, [facility] [id number] [place] [address] 35425- 6922 Oct, [facility] [address], [place] [address]- 1452 September, [facility] [address], [place] [address] 2546 September, [facility] [id number], [place] [address]- 7863 September, Hallux valgus (acquired) 735.0 and Other hammer toe ( acquired) 735.4 [facility] [address], [place] [address]- 2546 Aug, [facility] [id number] [place] [address] 96441- 8422 Aug, [facility] [place] [facility] [address] [id number] [place] [address]- 5251 Jul, [facility] [place] [facility] [address] [id number] [place] [address]- 8006 Jul, [facility] [place] [facility] [address] [id number] [place] [address]- 9519 Jul, [facility] [place] [facility] [address] [id number] [place] [address]- 3520 Jul, [facility] [place] [facility] [address] [id number] [place] [address]- 8415 Jul, [facility] [place] [facility] [address] [id number] [place] [address]- 0487 Jul, [facility] [place] [facility] [address] [facility] [id number] [place] [address]- 3408 Jul, [facility] [place] [facility] [address] [id number] [place] [address]- 2815 Jul, [facility] [place] [facility] [address] [id number] [place] [address]- 4326 Jun, [facility] [place] [facility] [address] [facility] [id number] [place] [address]- 0893 Jun, [facility] [place] [facility] [address] [id number] [place] [address]- 0807 Jun, 2014 [facility] [place] [facility] [address] [id number] [place] [address]- 2240 Jun, [facility] [place] [facility] [address] [id number] [place] [address]- 4553 Jun, [facility] [place] [facility] [address] [id number] [place] [address]- 3382 Jun, [facility] [place] [facility] [address] [facility] [id number] [place] [address]- 5750 Jun, [facility] [place] [facility] [address] [id number] [place] [address]- 6840 Jun, [facility] [address] [id number] [place] [address]- 4834 Jun, [facility] [place] [facility] [address] [id number] [place] [address]- 3806 Jun, [facility] [place] [facility] [address] [id number] [place] [address]- 1050 May, [facility] [place] [facility] [address] [id number] [place] [address]- 0895 May, [facility] [place] [facility] [address] [id number] [place] [address]- 5320 May, [facility] [place] [facility] [address] [id number] [place] [address]- 2708 May, [facility] [place] [facility] [address] [id number] [place] [address]- 8867 May, [facility] [address] [id number] [place] [address]- 6139 May, [facility] [place] [facility] [address] [id number] [place] [address]- 3589 May, [facility] [place] [facility] [address] [id number] [place] [address]- 0593 May, [facility] [place] [facility] [address] [id number] [place] [address]- 7397 May, [facility] [place] [facility] [address] [id number] [place] [address]- 7166 May, [facility] [place] [facility] [address] [id number] [place] [address]- 8277 May, [facility] [place] [facility] [address] [id number] [place] [address]- 2566 May, [facility] [place] [facility] [address] [id number] [place] [address]- 6733 May, [facility] [place] [facility] [address] [id number] [place] [address]- 0980 May, [facility] [place] [facility] [address] [id number] [place] [address]- 4964 May, [facility] [place] [facility] [address] [id number] [place] [address]- 2814 May, [facility] [place] [facility] [address] [id number] [place] [address]- 3493 May, [facility] [place] [facility] [address] [id number] [place] [address]- 8107 May, [facility] [place] [facility] [address] [id number] [place] [address]- 1483 Apr, [facility] [place] [facility] [address] [id number] [place] [address]- 3816 Apr, [facility] [place] [facility] [address] [id number] [place] [address]- 9857 Apr, [facility] [place] [facility] [address] [id number] [place] [address]- 1507 Apr, [facility] [place] [facility] [address] [id number] [place] [address]- 4034 Apr, [facility] [place] [facility] [address] [id number] [place] [address]- 8959 Apr, [facility] [place] [facility] [address] [id number] [place] [address]- 0140 Apr, [facility] [place] [facility] [address] [id number] [place] [address]- 7811 Apr, [facility] [place] [facility] [address] [id number] [place] [address]- 5604 Apr, [facility] [place] [facility] [address] [id number] [place] [address]- 1212 Mar, [facility] [place] [facility] [address] [id number] [place] [address]- 9547 Mar, [facility] [place] [facility] [address] [id number] [place] [address]- 2060 Mar, [facility] [place] [facility] [address] [id number] [place] [address]- 6825 Mar, [facility] [place] [facility] [address] [id number] [place] [address]- 5891 Mar, [facility] [place] [facility] [address] [id number] [place] [address]- 2779 Feb, [facility] [place] [facility] [address] [id number] [place] [address]- 0275 Feb, [facility] [place] [facility] [address] [id number] [place] [address]- 6141 Feb, [facility] [place] [facility] [address] [id number] [place] [address]- 7757 Feb, [facility] [place] [facility] [address] [id number] [place] [address]- 5082 Feb, [facility] [place] [facility] [address] [id number] [place] [address]- 0821 Feb, [facility] [place] [facility] [address] [id number] [place] [address]- 4864 Feb, [facility] [place] [facility] [address] [id number] [place] [address]- 4194 Feb, [facility] [place] [facility] [address] [id number], [place] [address]- 9112 Feb, [facility] [place] [facility] [address] [id number] 1086 Feb, [facility] [place] [facility] [address] [id number], [place] [address]- 8832 Feb, [facility] [place] [facility] [address] [id number] 4424 Feb, [facility] [place] [facility] [address] [id number] [place] [address]- 5279 07 Feb, 2013 [facility] [place] [facility] [address] [id number] [place] [address]- 3837 Feb, [facility] [place] [facility] [address] [id number] [place] [address]- 2237 Feb, 2013 [facility] [place] [facility] [address] [id number] [place] [address]- 4521 Feb, [facility] [place] [facility] [address] [id number] [place] [address]- 5730 Jan, 2013 [facility] [place] [facility] [address] [id number] [place] [address]- 5078 23 Jan, 2013 [facility] [place] [facility] [address] [id number] [place] [address]- 0898 20 Jan, 2014 [facility] [place] [facility] [address] [id number] [place] [address]- 6329 19 Jan, 2013 [facility] [place] [facility] [address] [id number] [place] [address]- 5526 11 Jan, 2014 [facility] [place] [facility] [address] [id number] [place] [address]- 2446 Jan, [facility] [place] [facility] [address] [id number] [place] [address]- 5057 Jan, [facility] [place] [facility] [address] [id number] [place] [address]- 5276 Jan, 2013 [facility] [place] [facility] [address] [id number] [place] [address]- 7712 Dec, [facility] [place] [facility] [address] [id number] [place] [address]- 2216 Dec, [facility] [place] [facility] [address] [id number] [place] [address]- 9128 Nov, [facility] [place] [facility] [address] [id number] [place] [address]- 2498 Nov, [facility] [place] [facility] [address] [id number] [place] [address]- 1389 Nov, [facility] [place] [facility] [address] [id number] [place] [address]- 8657 Nov, [facility] [place] [facility] [address] [id number] [place] [address]- 7683 Nov, [facility] [place] [facility] [address] [id number] [place] [address]- 0439 Nov, [facility] [place] [facility] [address] [id number] [place] [address]- 2747 Nov, [facility] [place] [facility] [address] [id number] [place] [address]- 4469 Nov, [facility] [place] [facility] [address] [id number] [place] [address]- 1363 Nov, [facility] [place] [facility] [address] [id number] [place] [address]- 8237 Oct, [facility] [place] [facility] [address] [id number] [place] [address]- 6695 Oct, [facility] [place] [facility] [address] [id number] [place] [address]- 1896 Oct, [facility] [place] [facility] [address] [id number] [place] [address]- 8092 Oct, [facility] [place] [facility] [address] [id number] [place] [address]- 3894 Oct, [facility] [place] [facility] [address] [id number] [place] [address]- 9783 Oct, [facility] [place] [facility] [address] [id number] [place] [address]- 6953 September, [facility] [place] [facility] [address] [id number] [place] [address]- 3775 September, [facility] [place] [facility] [address] [id number] [place] [address]- 6102 September, [facility] [address] [id number] [place] 1275 September, [facility] [address] [id number] [place] [address]- 5699 September, [facility] [address] [id number] [place] [address]- 0165 September, [facility] [address] [id number] [place] [address]- 0436 September, [facility] [address] [id number] [place] 4769 September, [facility] [address] [id number] [place] [address]- 3425 September, [facility] [address] [id number] [place] [address]- 3591 September, [facility] [address] [id number] [place] [address]- 2975 September, [facility] [address] [id number] [place] [address]- 3410 September, [facility] [address] [id number] [place] [address]- 8790 September, [facility] [address] [id number] [place] [address]- 5633 September, [facility] [address] [id number] [place] [address]- 7582 September, [facility] [place] [facility] [address] [id number] [place] 4888 September, [facility] [place] [facility] [address] [id number] [place] 3524 September, [facility] [address] [id number] [place] [address]- 9279 September, [facility] [place] [facility] [address] [id number] [place] [address]- 5264 September, [facility] [place] [facility] [address] [id number] [place] [address]- 0816 September, [facility] [place] [facility] [address] [id number] [place] [address]- 1591 Aug, [facility] [place] [facility] [address] [id number] [place] [address]- 1054 Aug, [facility] [place] [facility] [address] [id number] [place] [address]- 1597 Aug, [facility] [place] [facility] [address] [id number] [place] [address]- 6394 Aug, [facility] [place] [facility] [address] [id number] [place] [address]- 6991 Aug, [facility] [place] [facility] [address] [id number] [place] [address]- 6172 Aug, [facility] [place] [facility] [address] [id number] [place] [address]- 0350 Aug, [facility] [place] [facility] [address] [id number] [place] [address]- 9495 Aug, [facility] [place] [facility] [address] [id number] [place] [address]- 1270 Aug, [facility] [place] [facility] [address] [id number] [place] [address]- 5437 Aug, [facility] [place] [facility] [address] [id number] [place] [address]- 1028 Aug, [facility] [place] [facility] [address] [id number] [place] [address]- 1657 Aug, [facility] [place] [facility] [address] [id number] [place] [address]- 4128 Aug, [facility] [place] [facility] [address] [id number] [place] [address]- 1644 Aug, [facility] [place] [facility] [address] [id number] [place] [address]- 9450 Aug, [facility] [place] [facility] [address] [id number] [place] [address]- 7376 Jul, [facility] [place] [facility] [address] [id number] [place] [address]- 5976 Jul, [facility] [place] [facility] [address] [id number] [place] [address]- 9632 Jul, [facility] [place] [facility] [address] [id number] [place] [address]- 3549 Jul, [facility] [place] [facility] [address] [id number] [place] [address]- 0233 Jul, [facility] [place] [facility] [address] [id number] [place] [address]- 9286 Jul, [facility] [place] [facility] [address] [id number] [place] [address]- 4305 Jul, [facility] [place] [facility] [address] [id number] [place] [address]- 0715 Jul, [facility] [place] [facility] [address] [id number] [place] [address]- 1338 Jul, [facility] [place] [facility] [address] [id number] [place] [address]- 9654 Jul, [facility] [place] [facility] [address] [id number] [place] [address]- 2884 Jul, [facility] [place] [facility] [address] [id number] [place] [address]- 7821 Jul, [facility] [place] [facility] [address] [id number] [place] [address]- 2452 Jul, [facility] [place] [facility] [address] [id number] [place] [address]- 6941 Jul, [facility] [place] [facility] [address] [id number] [place] [address]- 1468 Jul, [facility] [place] [facility] [address] [id number] [place] [address]- 8645 Jun, [facility] [place] [facility] [address] [id number] [place] [address]- 9596 Jun, [facility] [place] [facility] [address] [id number] [place] [address]- 5616 Jun, [facility] [place] [facility] [address] [id number] [place] [address]- 8871 Jun, [facility] [place] [facility] [address] [id number] [place] [address]- 1015 Jun, [facility] [place] [facility] [address] [id number] [place] [address]- 2503 Jun, [facility] [place] [facility] [address] [id number] [place] [address]- 8003 May, [facility] [place] [facility] [address] [id number] [place] [address]- 2949 May, [facility] [place] [facility] [address] [id number] [place] [address] May, [facility] [place] [facility] [address] [id number] [place] [address] May, [facility] [place] [facility] [address] [id number] [place] [address] May, [facility] [place] [facility] [address] [id number] [place] [address] May, [facility] [place] [facility] [address] [id number] [place] [address] May, [facility] [place] [facility] [address] [id number] [place] [address] May, [facility] [place] [facility] [address] [id number] [place] [address] May, [facility] [address] [id number] [place] [address] May, [facility] [place] [facility] [address] [id number] [place] [address] May, [facility] [place] [facility] [address] [id number] [place] [address] May, [facility] [place] [facility] [address] [id number] [place] [address] May, [facility] [place] [facility] [address] [id number] [place] [address] May, [facility] [place] [facility] [address] [id number] [place] [address]- [address] May, [facility] [place] [facility] [address] [id number] [place] [address] Apr, [facility] [place] [facility] [address] [id number] [place] [address] Apr, [facility] [place] [facility] [address] [id number] [place] [address] Apr, [facility] [place] [facility] [address] [id number] [place] [address] Apr, [facility] [place] [facility] [address] [id number] [place] [address] Apr, [facility] [place] [facility] [address] [id number] [place] [address] Apr, [facility] [place] [facility] [address] [id number] [place] [address]- [address] Apr, [facility] [place] [facility] [address] [id number] [place] [address] Apr, [facility] [place] [facility] [address] [id number] [place] [address] Apr, [facility] [place] [facility] [address] [id number] [place] [address]78 Apr, [facility] [address] [id number] [place] [address] Mar, [facility] [address] [id number] [place] [address] Mar, [facility] [address] [id number] [place] [address] Mar, [facility] [address] [id number] [place] [address]- [address] Mar, [facility] [address] [id number] [place] [address] Mar, [facility] [address] [id number] [place] [address] Mar, [facility] [address] [id number] [place] [address] Mar, [facility] [address] [id number] [place] [address] Mar, [facility] [address] [id number] [place] [address] 98[address] Mar, [facility] [address] [id number] [place] [address] Mar, [facility] [address] [id number] [place] [address] Mar, [facility] [address] [id number] [place] [address] Mar, [facility] [place] [facility] [address] [id number] [place] [address] Mar, [facility] [place] [facility] [address] [id number] [place] [address] Mar, [facility] [address] [id number] [place] [address] Mar, [facility] [place] [facility] [address] [id number] [place] [address]- [address] 18 Mar, 2013 [facility] [place] [facility] [address] [id number] [place] [address] Mar, [facility] [place] [facility] [address] [id number] [place] [address]- [address] Mar, [facility] [place] [facility] [address] [id number] [place] [address]- [address] Mar, [facility] [place] [facility] [address] [id number] [place] [address]- [address] Mar, [facility] [place] [facility] [address] [id number] [place] [address] Mar, [facility] [place] [facility] [address] [id number] [place] [address]- [address] Mar, [facility] [place] [facility] [address] [id number], [place] [address] Mar, [facility] [place] [facility] [address] [id number], [place] [address] Feb, [facility] [place] [facility] [address] [id number], [place] [address] Feb, [facility] [place] [facility] [address] [id number], [place] [address] Feb, [facility] [place] [facility] [address] [id number], [place] [address]- [address] 16 Feb, 2013 [facility] [place] [facility] [address] [id number], [place] [address]- [address] 15 Feb, 2013 [facility] [place] [facility] [address] [id number], [place] [address]- [address] Feb, [facility] [place] [facility] [address] [facility] [id number], [place] [address] Feb, [facility] [place] [facility] [address] [id number], [place] [address] Feb, [facility] [address] [id number] [place] [address]- [address] Feb, [facility] [place] [facility] [address] [id number] [place] [address]- [address] Feb, [facility] [place] [facility] [address] [id number] [place] [address]- [address] 30 Jan, 2013 [facility] [place] [facility] [address] [id number] [place] [address]- [address] 26 Jan, 2013 [facility] [place] [facility] [address] [id number] [place] [address]- [address] 24 Jan, 2013 [facility] [place] [facility] [address] [id number] [place] [address]- [address] 23 Jan, 2013 [facility] [place] [facility] [address] [id number] [place] [address]- [address] 17 Jan, 2013 [facility] [place] [facility] [address] [id number] [place] [address]- 98[address] Dec, [facility] [place] [facility] [address] [id number] [place] [address]- [address]798 Dec, [facility] [place] [facility] [address] [id number] [place] [address]- [address] Dec, [facility] [place] [facility] [address] [id number] [place] [address]- [address] 15 Dec, 2012 [facility] [place] [facility] [address] [id number] [place] [address] 14 Dec, 2012 [facility] [place] [facility] [address] [id number] [place] [address] Dec, [facility] [place] [facility] [address] [id number] [place] [address] Dec, [facility] [place] [facility] [address] [id number] [place] [address] 44[address] Nov, [facility] [place] [facility] [address] [id number] [place] [address] 16 Nov, 2012 [facility] [address] [id number] [place] [address] 4716 15 Nov, 2012 [facility] [place] [facility] [address] [id number] [place] [address]46 05 Nov, 2012 [facility] [address] [id number] [place] [address] 2546 Nov, [facility] [place] [facility] [address] [id number] [place] [address] 27[address] Oct, [facility] [address] [id number] [place] [address] Oct, [facility] [place] [facility] [address] [id number] [place] [address] 2546 Oct, [facility] [address] [id number] [place] [address] 2906 September, [facility] [address] [id number] [place] [address] 6143 September, [facility] [address] [id number] [place] [address]- 4386 September, [facility] [address] [id number] [place] [address]- 1746 September, [facility] [place] [facility] [address] [id number] [place] [address] 0416 September, [facility] [address] [id number] [place] [address]- 2546 September, [facility] [place] [facility] [address] [id number] [place] [address]- 2546 September, [facility] [place] [facility] [address] [id number] [place] [address] 2546 Aug, [facility] [place] [facility] [address] [id number] [place] [address]- 9830 23 Aug, 2012 [facility] [place] [facility] [address] [id number] [place] [address]- 5276 11 Aug, 2012 [facility] [place] [facility] [address] [id number] [place] [address]- 8495 29 Jul, 2012 [facility] [place] [facility] [address] [id number] [place] [address]- 1513 27 Jul, 2012 [facility] [place] [facility] [address] [id number] [place] [address] 1920 26 Jul, 2012 [facility] [place] [facility] [address] [id number] [place] [address]- 6298 20 Jul, 2012 [facility] [place] [facility] [address] [id number] [place] [address]- 0681 18 Jul, 2012 [facility] [place] [facility] [address] [facility] [id number] [place] [address]- 4700 18 Jul, 2012 [facility] [place] [facility] [address] [id number] [place] [address]- 5488 13 Jul, 2012 [facility] [place] [facility] [address] [id number] [place] [address]- 4830 28 Jun, 2012 [facility] [place] [facility] [address] [facility] [id number] [place] [address]- 0966 27 Jun, 2012 [facility] [place] [facility] [address] [facility] [id number] [place] [address]- 2858 22 Jun, 2012 [facility] [place] [facility] [address] [id number] [place] [address]- 6401 20 Jun, 2012 [facility] [place] [facility] [address] [id number] [place] [address]- 5300 15 Jun, 2012 [facility] [place] [facility] [address] [id number] [place] [address]- 1015 15 Jun, 2012 [facility] [place] [facility] [address] [facility] [id number] [place] [address]- 2133 13 Jun, 2012 [facility] [place] [facility] [address] [id number] [place] [address]- 4326 Jun, [facility] [address] [id number] [place] [address]- 3486 Jun, [facility] [place] [facility] [address] [id number] [place] [address]- 2546 Jun, [facility] [address] [id number] [place] [address]- 9046 May, [facility] [place] [facility] [address] [id number] [place] [address] 2541 May, [facility] [address] [id number] [place] [address]- 1456 May, [facility] [address] [id number] [place] [address]- 3731 May, [facility] [address] [id number] [place] [address]- 5203 May, [facility] [address] [id number] [place] [address]- 1634 May, [facility] [address] [id number] [place] [address]- 6535 31 Apr, 2012 [facility] [address] [id number] [place] [address] 2546 31 Apr, 2012 [facility] [address] [id number] [place] [address] 2546 Apr, [facility] [place] [facility] [address] [id number] [place] [address] 2547 28 Apr, 2012 [facility] [place] [facility] [address] [id number] [place] [address] 2546 26 Apr, 2012 [facility] [place] [facility] [address] [id number] [place] [address]- 2546 20 Apr, 2012 [facility] [place] [facility] [address] [id number] [place] [address]- 8074 Apr, [facility] [place] [facility] [address] [id number] [place] [address]- 2178 Mar, [facility] [place] [facility] [address] [id number] [place] [address]- 6294 Mar, [facility] [place] [facility] [address] [facility] [id number] [place] [address]- 3445 Mar, [facility] [place] [facility] [address] [id number] [place] [address]- 0525 Mar, [facility] [place] [facility] [address] [id number] [place] [address]- 5421 Mar, [facility] [place] [facility] [address] [id number], [place] [address]- 5881 Mar, [facility] [place] [facility] [address] [id number] [place] [address]- 6748 Mar, [facility] [place] [facility] [address] [id number], [place] [address]- 4338 Mar, [facility] [place] [facility] [address] [id number], [place] [address]- 3179 Mar, [facility] [place] [facility] [address] [id number], [place] [address]- 3112 Mar, [facility] [place] [facility] [address] [id number], [place] [address]- 2785 Mar, [facility] [place] [facility] [address] [id number], [place] [address]- 5733 Mar, [facility] [place] [facility] [address] [id number], [place] [address]- 3628 Mar, [facility] [place] [facility] [address] [facility] [id number], [place] [address]- 1273 Mar, [facility] [place] [facility] [address] [facility] [id number], [place] [address]- 1310 Mar, [facility] [place] [facility] [address] [id number] [place] [address]- 6745 Mar, [facility] [place] [facility] [address] [id number] [place] [address]- 4573 Mar, [facility] [place] [facility] [address] [id number] [place] [address]- 3125 Feb, [facility] [place] [facility] [address] [id number] [place] [address]- 2684 Feb, 2011 [facility] [place] [facility] [address] [id number] [place] [address]- 4728 Feb, [facility] [place] [facility] [address] [id number] [place] [address]- 8406 Feb, [facility] [place] [facility] [address] [id number] [place] [address]- 8907 Feb, [facility] [place] [facility] [address] [id number] [place] [address]- 8249 Feb, [facility] [place] [facility] [address] [id number] [place] [address]- 3601 Feb, [facility] [place] [facility] [address] [id number] [place] [address]- 5521 Feb, [facility] [place] [facility] [address] [facility] [id number] [place] [address]- 6695 Feb, [facility] [place] [facility] [address] [id number] [place] [address]- 3759 Feb, [facility] [place] [facility] [address] [id number] [place] [address]- 9002 Feb, [facility] [place] [facility] [address] [id number] [place] [address]- 0197 27 Jan, 2011 [facility] [place] [facility] [address] [id number] [place] [address]- 0768 25 Jan, 2012 [facility] [place] [facility] [address] [id number] [place] [address]- 4085 13 Jan, 2012 [facility] [place] [facility] [address] [id number] [place] [address]- 8152 12 Jan, 2012 [facility] [place] [facility] [address] [id number] [place] [address]- 9568 Jan, [facility] [place] [facility] [address] [id number] [place] [address]- 1554 Dec, [facility] [place] [facility] [address] [id number] [place] [address]- 7268 Dec, [facility] [place] [facility] [address] [id number] [place] [address]- 3445 Dec, [facility] [place] [facility] [address] [id number] [place] [address]- 7114 Dec, [facility] [place] [facility] [address] [id number] [place] [address]- 7523 Dec, [facility] [place] [facility] [address] [id number] [place] [address]- 6356 Dec, [facility] [place] [facility] [address] [id number] [place] [address]- 7905 Dec, [facility] [place] [facility] [address] [id number] [place] [address]- 6794 Dec, [facility] [place] [facility] [address] [id number] [place] [address]- 8051 Nov, [facility] [place] [facility] [address] [id number] [place] [address]- 5754 Nov, [facility] [place] [facility] [address] [id number] [place] [address]- 4643 Nov, [facility] [place] [facility] [address] [id number] [place] [address]- 5552 Nov, [facility] [place] [facility] [address] [id number] [place] [address]- 1255 Nov, [facility] [place] [facility] [address] [id number] [place] [address]- 0729 Oct, [facility] [address] [id number] [place] 4760 Oct, [facility] [place] [facility] [address] [id number] [place] [address]- 4048 September, [facility] [address] [id number] [place] [address]- 2216 September, [facility] [place] [facility] [address] [id number] [place] [address]- 8985 September, [facility] [address] [id number] [place] [address]- 4273 September, [facility] [place] [facility] [address] [id number] [place] [address]- 0359 September, [facility] [address] [id number] [place] [address]- 4153 September, [facility] [place] [facility] [address] [id number] [place] [address]- 3422 September, [facility] [place] [facility] [address] [id number] [place] [address]- 3205 September, [facility] [place] [facility] [address] [id number] [place] [address]- 7623 September, [facility] [place] [facility] [address] [id number] [place] [address]- 2851 September, [facility] [place] [facility] [address] [id number] [place] [address]- 8485 September, [facility] [place] [facility] [address] [id number] [place] [address]- 3430 September, [facility] [place] [facility] [address] [id number] [place] [address]- 2241 September, [facility] [place] [facility] [address] [id number] [place] [address]- 1156 September, [facility] [place] [facility] [address] [id number] [place] [address]- 8484 24 Aug, 2011 [facility] [address] [id number] [place] [address]- 9510 20 Aug, 2011 [facility] [address] [id number] [place] [address]- 4036 13 Aug, 2011 [facility] [address] [id number] [place] [address]- 6314 11 Aug, 2011 [facility] [address] [id number] [place] [address]- 5763 23 Jul, 2011 [facility] [address] [id number] [place] [address]- 1006 13 Jul, 2011 [facility] [address] [id number] [place] [address]- 1748 13 Jul, 2011 [facility] [address] [id number] [place] [address]- 5263 28 Jun, [address] [facility] [address] [id number] [id number] 26 Jun, 2011 [facility] [address] [id number] [place] [address]- 1328 13 Jun, 2011 [facility] [address] [id number] [place] [address]- 9784 10 Jun, 2011 [facility] [address] [id number] [place] [address]- 7866 07 Jun, 2011 [facility] [address] [id number] [place] [address]- 9346 07 Jun, 2011 [facility] [place] [facility] [address] [id number] [place] [address]- 3546 03 Jun, 2011 [facility] [place] [facility] [address] [id number] [place] [address]- 8556 02 Jun, 2011 [facility] [place] [facility] [address] [id number] [place] [address]- 8744 31 May, 2011 [facility] [address] [id number] [place] [address]- 8446 30 May, 2011 [facility] [address] [id number] [place] [address]- 2091 May, [facility] [address] [id number] [place] [address]- 8721 May, [facility] [address] [id number] [place] [address]- 5347 May, [facility] [address] [id number] [place] [address]- 8689 May, [facility] [address] [id number] [place] [address]- 7123 May, [facility] [address] [id number] [place] [address]- 1919 May, [facility] [place] [facility] [address] [id number] [place] [address]- 2032 May, [facility] [address] [id number] [place] [address]- 3539 May, [facility] [place] [facility] [address] [id number] [place] [address]- 9722 May, [facility] [address] [id number], [place] [address]- 9898 May, [facility] [place] [facility] [address] [id number], [place] [address]- 5399 May, [facility] [place] [facility] [address] [id number] [place] [address]- 5333 May, [facility] [place] [facility] [address] [id number] [place] [address]- 6014 30 Apr, 2011 [facility] [place] [facility] [address] [id number] [place] [address]- 4427 16 Apr, 2011 [facility] [place] [facility] [address] [id number] [place] [address]- 9217 05 Apr, 2011 [facility] [place] [facility] [address] [id number] [place] [address]- 3666 17 Mar, 2011 [facility] [place] [facility] [address] [id number] [place] [address] 2546 Mar, [facility] [place] [facility] [address] [id number] [place] [address]- 3286 31 Feb, 2011 [facility] [place] [facility] [address] [id number] [place] [address] 2546 26 Feb, 2011 [facility] [place] [facility] [address] [id number] [place] [address]- 6114 Feb, [facility] [place] [facility] [address] [id number] [place] [address]- 0341 20 Feb, 2011 [facility] [place] [facility] [address] [id number] [place] [address]- 0446 13 Feb, 2011 [facility] [place] [facility] [address] [id number] [place] [address]- 7523 28 Apr, 2010 [facility] [place] [facility] [address] [id number] [place] [address] 2546 22 Apr, 2010 [facility] [place] [facility] [address] [facility] [id number] [place] [address] 2545 16 Apr, 2010 [facility] [place] [facility] [address] [id number] [place] [address] 2546 15 Apr, 2010 [facility] [place] [facility] [address] [id number] [place] [address] 2546 15 Apr, 2010 [facility] [place] [facility] [address] [id number] [place] [address] 2546 Apr, [facility] [place] [facility] [address] [id number] [place] [address] 2546 24 Mar, 2010 [facility] [place] [facility] [address] [id number] [place] [address] 2543 17 Mar, 2010 [facility] [id number], [place] [address]- 5737 17 Mar, 2010 [facility] [id number], [place] [address]- 3717 28 Feb, 2010 [facility] [id number], [place] [address]- 3575 Feb, [facility] [id number] [place] [address]- 2478 Feb, [facility] [id number], [place] [address]- 2781 Feb, [facility] [id number] [place] [address]- 2904 Dec, [facility] [id number], [place] [address]- 2392 Dec, [facility] [id number] [place] [address] 024[address]- 8021 Oct, [facility] [id number], [place] [address]- 0914 Mar, [facility] [id number], [place] [address]- 2388 Mar, [facility] [id number], [place] [address]- 9125 September, IMMUNIZATIONS No Known Immunizations SOCIAL HISTORY Never Assessed REASON FOR VISIT EMR[place] [place] CARE VITAL SIGNS MEDICATIONS Unknown [...] Surgical History Lysis of adhesion by Dr. aFustin 04/26/2011 Surgical History hysterectomy Surgical History section Surgical History orthopedic surgery-Dr. Avitia-left foot surgery bunionectomy, reduction of hammertoe 02/2012 Surgical History Foot surgery. Removal of hardware 10/2014 Surgical History Left foot surgery 10/2014 Surgical History left knee arthroplasty 12/2014 Hospitalization History Hospitalization for surgery only Hospitalization History ICU-COPD,UTI 05/2015
--- OUTSIDE RECORDS SUMMARY | 2018-09-19 08:54 | XMS REPORT ---
Author Author Migration, Doctor Organization [facility] Address Unknown Phone Unavailable Care Team Providers Care Foreclosure Specialist Name Role Phone Migration, Doctor Unavailable Unavailable PROBLEMS Type Condition ICD9-CM Code QDA39-QX Code Onset Dates Condition Status SNOMED Code Problem Hypokalemia E87.6 Active 807085025 Problem Generalized anxiety disorder F41.1 Active 67128432 Problem Pain in right knee M25.561 Active 28574438 Problem Right low back pain, with sciatica presence unspecified M54.5 Active 945714448 Problem Right foot pain M79.671 Active 19702627 Problem UTI symptoms R39.9 Active 33660935 Problem Essential hypertension I10 Active 12906162 Problem Gastroesophageal reflux disease without esophagitis K21.9 Active 607031485 Problem Weight decrease R63.4 Active 417054252 Problem Depression, unspecified depression type F32.9 Active 07109594 Problem Right upper quadrant abdominal pain R10.11 Active 219506487 Problem Tobacco abuse Z72.0 Active 37468842 Problem Insomnia, unspecified type G47.00 Active 304912486 Problem Weight loss R63.4 Active 663451540 Problem Post-traumatic stress disorder, chronic F43.12 Active 57805764 Problem Pulmonary emphysema, unspecified emphysema type J43.9 Active 97404162 Problem Neuropathy G62.9 Active 349721305 Problem Anxiety F41.9 Active 66700368 Problem Other emphysema J43.8 Active 78749890 Problem Other chronic pain G89.29 Active 95308269 Problem Chronic pain G89.29 Active 74550979 Problem Opioid use disorder, moderate, dependence F11.20 Active 31162536 Problem Back pain M54.9 Active 081473617 Problem Bone pain M89.8X9 Active 96054758 Problem Panic attacks F41.0 Active 568955992 Problem Kidney stones N20.0 Active 17374569 Problem Renal calculus, right N20.0 Active 88964189 Problem Generalized abdominal pain R10.84 Active 283425250 ALLERGIES No Information ENCOUNTERS Encounter Location Date Diagnosis [facility] [address] [address] Feb, [facility] [id number] [place] [address] 18203- 6084 Dec, [facility] [id number] [place] [address] 00953- 3259 Dec, [facility] [id number] [place] [address] 43222- 0022 Dec, Medicare welcome exam Z00.00 [facility] [id number] [place] [address] 79424- 2179 17 Nov, 2017 Opioid use disorder, moderate, dependence F11.20 [facility] [id number] [place] [address] 72476- 6047 16 Nov, 2017 Pelvic pain R10.2 ; Acute pyelonephritis N10 and Essential hypertension I10 [facility] [id number] [place] [address] 87278- 8952 28 Oct, 2017 Medicare welcome exam Z00.00 [facility] [id number] [place] [address] 44936- 5289 Oct, Gross hematuria R31.0 ; Urinary tract infection without hematuria, site unspecified N39.0 and Weakness R53.1 [facility] [id number] [place] [address] 21287- 1074 Oct, [facility] [id number] [place] [address] 89801- 7972 Oct, [facility] [id number] [place] [address] 74632- 2278 Oct, Medicare welcome exam Z00.00 [facility] [id number] [place] [address] 97058- 9942 September, Back pain M54.9 and Right anterior knee pain M25.561 [facility] [id number] [place] [address] 15751- 7615 September, [facility] [address] [address] 6579 September, [facility] [id number] [place] [address] 44641- 9308 September, Essential hypertension I10 [facility] [id number] [place] [address] 46452- 8166 September, [facility] [id number] [place] [address] 91188- 5106 September, RLQ abdominal pain R10.31 ; Low back pain M54.5 and Other chronic pain G89.29 [facility] [id number] [place] [address] 59583- 3888 Aug, Medicare welcome exam Z00.00 [facility] [id number] [place] [address] 96107- 7036 Aug, [facility] [id number] [place] [address] 00247- 6090 Aug, Acute pyelonephritis N10 and Medicare welcome exam Z00.00 [facility] [id number] [place] [address] 70752 -4366 Aug, Dysuria R30.0 and Acute pyelonephritis N10 [facility] [address], [place] [address] 0809 Aug, [facility] [id number] [place] [address] 04444- 5475 Aug, [facility] [id number] [place] [address] 95200- 4116 Aug, [facility] [id number] [place] [address] 70739- 1614 Aug, [facility] [address], [place] [address]- 5641 Jul, [facility] [id number] [place] [address] 32192- 4299 Jul, Renal calculus, right N20.0 and Medicare welcome exam Z00.00 [facility] [id number] [place] [address] 09293 -3671 Jul, Dysuria R30.0 and Renal calculus, right N20.0 [facility] [id number] [place] [address] 61263- 3436 Jul, Medicare welcome exam Z00.00 [facility] [id number] [place] [address] 93544- 9176 Jun, Gastroesophageal reflux disease without esophagitis K21.9 and Generalized abdominal pain R10.84 [facility] [id number] [place] [address] 49123- 4612 Jun, Medicare welcome exam Z00.00 [facility] [id number] [place] [address] 92292- 2587 Jun, [facility] [id number] [place] [address] 01411- 8293 Jun, Medicare welcome exam Z00.00 and Encounter for screening mammogram for malignant neoplasm of breast Z12.31 [facility] [id number] [place] [address] 29737- 0645 Jun, Chronic pain G89.29 [facility] [id number] [place] [address] 34550- 5799 May, [facility] [id number] [place] [address] 66738- 0568 May, Pelvic pain R10.2 [facility] [id number] [place] [address] 03614- 0378 May, Pelvic pain R10.2 [facility] [id number] [place] [address] 22136 -8819 May, Renal calculus, right N20.0 [facility] [id number] [place] [address] 48167- 5279 May, Hematuria, unspecified type R31.9 and Nephrolithiasis N20.0 [facility] [id number] [place] [address] 13454 -0324 May, Dysuria R30.0 and Nephrolithiasis N20.0 [facility] [id number] [place] [address] 66833- 7029 May, [facility] [id number] [place] [address] 38411 -9566 May, Abdominal pain R10.9 and Kidney stone N20.0 [facility] [id number] [place] [address] 32557- 2385 May, [facility] [id number] [place] [address] 98646- 0431 May, Chronic pain G89.29 and Panic attacks F41.0 [facility] [id number] [place] [address] 36885- 2819 May, Urinary tract infection without hematuria, site unspecified N39.0 [facility] [id number] [place] [address] 87033- 0572 Apr, Right lower quadrant abdominal pain R10.31 and Abnormal serum lipase level R74.8 [facility] [id number] [place] [address] 70829- 8281 Apr, Recurrent urinary tract infection N39.0 [facility] [id number] [place] [address] 10069- 4761 Apr, UTI symptoms R39.9 ; Recurrent urinary tract infection N39.0 and Pelvic pain R10.2 [facility] [id number] [place] [address] 06962- 5737 Apr, Chronic pain G89.29 and Panic attacks F41.0 [facility] [id number] [place] [address] 99243- 5505 Apr, Dysuria R30.0 [facility] [id number] [place] [address] 41817- 6947 Apr, [facility] [id number] [place] [address] 51344- 3211 Apr, Dysuria R30.0 and Urinary tract infection without hematuria , site unspecified N39.0 [facility] [id number] [place] [address] 41938- 1341 Mar, UTI symptoms R39.9 [facility] [id number] [place] [address] 72513- 6659 Mar, [facility] [id number] [place] [address] 29844- 9685 Mar, Panic attacks F41.0 and Chronic pain G89.29 [facility] [address] 61904- 9415 Mar, [facility] [id number] [place] [address] 16154- 9942 Mar, Dysuria R30.0 [facility] [id number] [place] [address] 76470- 3823 Mar, Dysuria R30.0 [facility] [id number] [place] [address] 08778- 0178 Feb, Chronic pain G89.29 ; Shortness of breath R06.02 ; Weight loss R63.4 ; Encounter for immunization Z23 ; Bone pain M89.8X9 ; Right anterior knee pain M25.561 and Cough R05 [facility] [id number] [place] [address] 77949- 1602 Feb, Shortness of breath R06.02 [facility] [id number] [place] [address] 82588- 6367 Feb, [facility] [id number] [place] [address] 35392- 6027 Feb, Panic attacks F41.0 and Chronic pain G89.29 [facility] [facility] [address] 11450- 6665 Feb, [facility] [address] 00080- 7762 04 Feb, 2017 Panic attacks F41.0 ; Shortness of breath R06.02 and Encounter for immunization Z23 [place] [facility] [address] 07450- 0154 Jan, [facility] [address] 60396- 1551 15 Jan, 2017 Anxiety F41.9 and Chronic pain G89.29 [facility] [address] 35217- 7569 Dec, Anxiety F41.9 and Chronic pain G89.29 [facility] [address] 82848- 7593 Nov, Chronic pain G89.29 [facility] [address] 29336- 3948 Nov, Anxiety F41.9 [facility] [address] 69380- 1745 Nov, Chronic pain G89.29 ; Essential hypertension I10 and Other emphysema J43.8 [facility] [id number] [place] [address] 13843- 4995 Oct, Anxiety F41.9 [place] [address] 37094- 2440 Oct, [facility] [address] 15778- 7834 Oct, Chronic pain G89.29 [facility] [address] 10370- 2227 September, Recurrent UTI N39.0 ; Neuropathy G62.9 and Anxiety F41.9 [facility] [id number] [place] [address] 56684- 3185 September, [facility] [id number] [place] [address] 52749- 5135 September, Chronic pain G89.29 [facility] [id number] [place] [address] 18914- 8283 September, [facility] [address] 90618- 9422 Aug, Post-traumatic stress disorder, chronic F43.12 ; Chronic urinary tract infection N39.0 ; Gastroesophageal reflux disease without esophagitis K21.9 ; Chronic pain G89.29 ; Essential hypertension I10 and Tobacco abuse Z72.0 [facility] [id number] [place] [address] 96036 -3064 Aug, [facility] [address] 85941- 5229 Aug, Chronic pain G89.29 [facility] [address] 30709- 5315 Aug, Insomnia, unspecified type G47.00 [facility] [id number] [place] [address] 06408- 0436 Aug, [facility] [id number] [place] [address] 66980- 5606 Jul, Chronic pain G89.29 [facility] [id number] [place] [address] 98849- 4493 Jul, [facility] [address] 75890- 3084 Jul, [facility] [id number] [place] [address] 21603- 0100 Jul, [facility] [address] 33956- 1424 15 Jul, 2016 Recurrent UTI (urinary tract infection) N39.0 [facility] [id number] [place] [address] 36539- 9128 14 Jul, 2016 [facility] [id number] [place] [address] 03895- 1506 27 Jun, 2016 Chronic pain G89.29 [facility] [id number] [place] [address] 06671- 7546 17 Jun, 2016 [facility] [id number] [place] [address] 81781- 8310 Jun, [facility] [id number] [place] [address] 02127- 2831 May, Chronic pain G89.29 [facility] [id number] [place] [address] 71983- 8929 May, Weight loss R63.4 and Shortness of breath R06.02 [facility] [id number] [place] [address] 31294- 8408 May, Chronic pain G89.29 ; Weight loss R63.4 and Tobacco abuse Z72.0 [facility] [id number] [place] [address] 47968- 6635 May, [facility] [id number] [place] [address] 24853- 1745 May, Hypoxia R09.02 [facility] [id number] [place] [address] 78951- 8513 May, [facility] [id number] [place] [address] 64919- 9973 May, Pulmonary emphysema, unspecified emphysema type J43.9 [facility] [id number] [place] [address] 97980 -2148 May, [facility] [id number] [place] [address] 45572- 5208 May, [facility] [id number] [place] [address] 83064- 5426 May, [facility] [address] 69555- 5972 May, Chronic pain G89.29 ; Encounter for immunization Z23 ; Right anterior knee pain M25.561 and Cough R05 [facility] [address] 95999- 6948 Apr, Chronic pain G89.29 [facility] [id number] [place] [address] 42457- 7124 Apr, [facility] [address] 15158- 8959 Apr, Generalized anxiety disorder F41.1 and Depression, unspecified depression type F32.9 [facility] [address] 76736- 7228 Apr, Chronic pain G89.29 ; Hypokalemia E87.6 and Insomnia, unspecified type G47.00 [facility] [id number] [place] [address] 68236- 6181 Apr, [facility] [id number] [place] [address] 15119- 4487 Apr, Chronic pain G89.29 [facility] [id number] [place] [address] 18890- 0971 Apr, [facility] [id number] [place] [address] 34964- 8331 Mar, [facility] [id number] [place] [address] 22327- 2939 Mar, Insomnia, unspecified type G47.00 [facility] [id number] [place] [address] 75144- 9704 Mar, Chronic pain G89.29 [facility] [id number] [place] [address] 35052- 0545 Mar, [facility] [address] [address]- 4556 Feb, [facility] [address], [place] [address]- 4433 Feb, [facility] [id number] [place] [address] 22753- 0021 Feb, [facility] [id number] [place] [address] 43861- 9214 Feb, [facility] [id number] [place] [address] 47032- 9442 Feb, [facility] [id number] [place] [address] 57387- 7489 29 Jan, 2016 [facility] [id number] [place] [address] 81753- 9121 26 Jan, 2015 [facility] [address] [address]- 0029 20 Jan, 2015 [facility] [id number] [place] [address] 78380- 0578 13 Jan, 2015 [facility] [address], [place] [address]- 3435 12 Jan, 2016 [facility] [id number] [place] [address] 34511- 7024 07 Jan, 2015 Chronic pain G89.29 [facility] [address], [place] [address]- 2191 Jan, 2015 Chronic pain G89.29 and Fibromyalgia M79.7 [facility] [address], [place] [address]- 1168 Dec, Depression, unspecified depression type F32.9 and Generalized anxiety disorder 300.02 [facility] [address] [address]- 7419 Dec, Dysthymia F34.1 ; Insomnia, unspecified type G47.00 and Chronic pain G89.29 [facility] [address] [facility] [id number] [place] [address] 36887- 9878 Dec, Chronic pain G89.29 [facility] [id number] [place] [address] 37545 2546 Dec, Insomnia, unspecified type G47.00 [facility] [address] [facility] [id number] [place] [address] 80830 2545 Dec, Fibromyalgia M79.7 and Chronic pain G89.29 [facility] [id number] [place] [address] 33252- 5166 Dec, [facility] [id number] [place] [address] 11161 2546 Dec, [facility] [id number] [place] [address] 26442- 9553 Dec, [facility] [id number] [place] [address] 14380 2546 Dec, [facility] [id number] [place] [address] 04725- 1255 Dec, Chronic pain G89.29 [facility] [id number] [place] [address] 23785 2544 Dec, [facility] [id number] [place] [address] 95129 2544 Dec, [facility] [id number] [place] [address] 36416 2546 Dec, [facility] [id number] [place] [address] 24547 2540 Dec, Chronic pain G89.29 and Dysthymia F34.1 [facility] [id number] [place] [address] 93549 2541 Nov, [facility] [id number] [place] [address] 71275- 9989 Nov, Hypokalemia E87.6 and Chronic pain G89.29 [facility] [address] 91836- 7625 Nov, Back pain M54.9 and Pain in right knee M25.561 [facility] [address] 51442- 9589 Nov, [facility] [address] 96041- 9568 Nov, Chronic pain G89.29 [facility] [address] 28881- 4091 Nov, Chronic pain G89.29 ; Weight loss R63.4 ; Bone pain M89.8X9 and Insomnia, unspecified type G47.00 [place] [address] 43526- 5757 Nov, Chronic pain G89.29 [facility] [address] 71300- 8004 Nov, Chronic pain G89.29 [facility] [address] 20639- 6456 30 Oct, 2015 Chronic pain G89.29 [facility] [id number] [place] [address] 99837- 0153 Oct, UTI symptoms R39.9 [facility] [id number] [place] [address] 65579- 9836 27 Oct, 2015 Chronic pain G89.29 [facility] [address] 82459- 7336 20 Oct, 2015 Chronic pain G89.29 [facility] [id number] [place] [address] 28763- 7234 13 Oct, 2015 Chronic pain G89.29 [place] [address] 86375- 0068 Oct, Right upper quadrant abdominal pain R10.11 [facility] [id number] [address] Oct, Chronic pain G89.29 [facility] [id number] [address] Oct, [facility] [id number] [place] [address]- [address]00 September, Chronic pain G89.29 [facility] [id number] [place] [address] [id number]- 9388 September, Dysuria R30.0 and Urinary tract infection without hematuria , site unspecified N39.0 [facility] [id number] [place] [address] 06017- 2589 September, [facility] [address] [place] [id number] [place] [address] 50226- 1047 September, Dysuria R30.0 [facility] [id number] [place] [address]33- 0636 September, Chronic pain G89.29 [facility] [id number] [place] [address] 56127- 0509 September, Chronic pain G89.29 and Essential hypertension I10 [facility] [id number] [address] September, [facility] [id number] [place] [address] 14169- 6850 September, [facility] [id number] [place] [address] [id number]- 2026 September, [facility] [id number] [place] [address] 91509- 5589 Aug, UTI symptoms R39.9 [facility] [id number] [address] Aug, Dysuria R30.0 [facility] [id number] [address] Aug, [facility] [address] [place] [id number] [place] [address] 06540- 0103 Aug, [facility] [address] [place] [id number] [place] [address] 17053- 8123 Aug, [facility] [id number] [place] [address] 27779- 8198 Aug, Chronic pain G89.29 [facility] [id number] [place] [address] 94559- 8407 Aug, Dysthymia F34.1 [facility] [id number] [place] [address] 18944- 4951 Aug, Conjunctivitis, unspecified conjunctivitis type, unspecified laterality H10.9 [facility] [id number] [place] [address] 87452- 0694 Jul, Chronic pain G89.29 ; Back pain M54.9 ; Tobacco abuse Z72.0 and Weight decrease R63.4 [facility] [id number] [place] [address] 11907- 8020 Jul, [facility] [id number] [place] [address] 24543- 0812 Jul, [facility] [id number] [place] [address] 53703- 6904 24 Jul, 2015 Chronic pain G89.29 [facility] [address] [address]- 7394 Jul, [facility] [id number] [place] [address] 09813- 4942 Jul, [facility] [id number] [place] [address] 83360- 1201 Jul, [facility] [id number] [place] [address] 26645- 9243 17 Jul, 2015 [facility] [address] [address]- 7600 17 Jul, 2015 Chronic pain G89.29 [facility] [address] [address]- 9288 16 Jul, 2015 Chronic pain G89.29 [facility] [id number] [place] [address] 10722- 2065 15 Jul, 2015 [facility] [id number] [place] [address] 74078- 8734 Jul, [facility] [id number] [place] [address] 03634- 1982 Jul, [facility] [id number] [place] [address] 95378- 6995 Jul, [facility] [id number] [place] [address] 07794- 3453 Jun, [facility] [id number] [place] [address] 66855- 0690 Jun, Depression, unspecified depression type F32.9 [facility] [id number] [place] [address] 11716- 1785 Jun, Pain in right knee M25.561 [facility] [id number] [place] [address] 24211- 8372 24 Jun, 2015 Chronic pain G89.29 ; Back pain M54.9 ; Bone pain M89.8X9 and Weight loss R63.4 [facility] [id number] [place] [address] 22347- 6109 Jun, [facility] [id number] [place] [address] 33025- 2580 May, [facility] [address] [address]- 9520 May, UTI symptoms R39.9 ; Pain in right knee M25.561 ; Right low back pain, with sciatica presence unspecified M54.5 ; Right foot pain M79.671 ; Hypokalemia E87.6 and Screening, lipid Z13.220 [facility] [id number] [place] [address] 65338- 1529 May, [facility] [id number] [place] [address] 14973- 0127 May, [facility] [id number] [place] [address] 72362- 4113 Mar, [facility] [id number] [place] [address] 34156- 1057 Mar, [facility] [id number] [place] [address] 49905- 2457 Mar, Hypokalemia E87.6 [facility] [address] 95115- 2709 Mar, Pain in right leg M79.604 ; Encounter for immunization Z23 ; Pain in right knee M25.561 and Hypokalemia E87.6 [facility] [id number] [place] [address] 33650- 6219 Jan, [facility] [id number] [place] [address] 34566- 1433 Jan, [facility] [id number] [place] [address] 48950 2548 Jan, Abdominal pain, generalized 789.07 [facility] [id number] [place] [address] 12242 2542 Jan, Abdominal pain, generalized 789.07 [facility] [id number] [place] [address] 42961- 6299 Dec, [facility] [id number] [place] [address] 87109- 1316 Dec, [facility] [address], [place] [address]- 5486 Dec, [facility] [id number] [place] [address] 81227- 1194 Nov, Hallux valgus 735.0 and Hammertoe 735.4 [facility] [address], [place] [address]- 8406 Nov, [facility] [id number] [place] [address] 85905- 8478 Nov, Hallux valgus 735.0 and Hammer toe 735.4 [facility] [id number] [place] [address] 18440- 2096 Oct, [facility] [id number] [place] [address] 31883- 1256 Oct, [facility] [id number] [place] [address] 63605- 0559 Oct, Pre-op evaluation V72.84 [facility] [address] [address]- 3520 Oct, [facility] [id number] [place] [address] 24021- 5519 Oct, [facility] [address], [place] [address]- 5238 September, [facility] [address] [address] 2546 September, [facility] [id number] [address]- 7467 September, Hallux valgus (acquired) 735.0 and Other hammer toe ( acquired) 735.4 [facility] [address] [address]- 2546 Aug, [facility] [id number] [place] [address] 53976- 0026 Aug, [facility] [place] [facility] [address] [id number] [place] [address]- 0847 Jul, [facility] [place] [facility] [address] [id number] [place] [address]- 6452 Jul, [facility] [place] [facility] [address] [id number] [place] [address]- 8580 Jul, [facility] [place] [facility] [address] [id number] [place] [address]- 0710 Jul, [facility] [place] [facility] [address] [id number] [place] [address]- 3980 Jul, [facility] [place] [facility] [address] [id number] [place] [address]- 8288 Jul, [facility] [place] [facility] [address] [facility] [id number] [place] [address]- 8389 Jul, [facility] [place] [facility] [address] [id number] [place] [address]- 2549 Jul, [facility] [place] [facility] [address] [id number] [place] [address]- 7090 Jun, [facility] [place] [facility] [address] [facility] [id number] [place] [address]- 4503 Jun, [facility] [place] [facility] [address] [id number] [place] [address]- 7800 Jun, 2014 [facility] [place] [facility] [address] [id number] [place] [address]- 4605 Jun, [facility] [place] [facility] [address] [id number] [place] [address]- 4817 Jun, [facility] [place] [facility] [address] [id number] [place] [address]- 3009 Jun, [facility] [place] [facility] [address] [facility] [id number] [place] [address]- 2668 Jun, [facility] [place] [facility] [address] [id number] [place] [address]- 0426 Jun, [facility] [address] [id number] [place] [address]- 0425 Jun, [facility] [place] [facility] [address] [id number] [place] [address]- 4526 Jun, [facility] [place] [facility] [address] [id number] [place] [address]- 0275 May, [facility] [place] [facility] [address] [id number] [place] [address]- 2557 May, [facility] [place] [facility] [address] [id number] [place] [address]- 3347 May, [facility] [place] [facility] [address] [id number] [place] [address]- 3772 May, [facility] [place] [facility] [address] [id number] [place] [address]- 0168 May, [facility] [address] [id number] [place] [address]- 5738 May, [facility] [place] [facility] [address] [id number] [place] [address]- 1632 May, [facility] [place] [facility] [address] [id number] [place] [address]- 3841 May, [facility] [place] [facility] [address] [id number] [place] [address]- 4867 May, [facility] [place] [facility] [address] [id number] [place] [address]- 0398 May, [facility] [place] [facility] [address] [id number] [place] [address]- 3385 May, [facility] [place] [facility] [address] [id number] [place] [address]- 4486 May, [facility] [place] [facility] [address] [id number] [place] [address]- 0369 May, [facility] [place] [facility] [address] [id number] [place] [address]- 3100 May, [facility] [place] [facility] [address] [id number] [place] [address]- 6322 May, [facility] [place] [facility] [address] [id number] [place] [address]- 1138 May, [facility] [place] [facility] [address] [id number] [place] [address]- 0759 May, [facility] [place] [facility] [address] [id number] [place] [address]- 0941 May, [facility] [place] [facility] [address] [id number] [place] [address]- 2110 Apr, [facility] [place] [facility] [address] [id number] [place] [address]- 3172 Apr, [facility] [place] [facility] [address] [id number] [place] [address]- 7307 Apr, [facility] [place] [facility] [address] [id number] [place] [address]- 1882 Apr, [facility] [place] [facility] [address] [id number] [place] [address]- 9087 Apr, [facility] [place] [facility] [address] [id number] [place] [address]- 3105 Apr, [facility] [place] [facility] [address] [id number] [place] [address]- 8337 Apr, [facility] [place] [facility] [address] [id number] [place] [address]- 7807 Apr, [facility] [place] [facility] [address] [id number] [place] [address]- 6783 Apr, [facility] [place] [facility] [address] [id number] [place] [address]- 8912 Mar, [facility] [place] [facility] [address] [id number] [place] [address]- 3458 Mar, [facility] [place] [facility] [address] [id number] [place] [address]- 9076 Mar, [facility] [place] [facility] [address] [id number] [place] [address]- 9418 Mar, [facility] [place] [facility] [address] [id number] [place] [address]- 4388 Mar, [facility] [place] [facility] [address] [id number] [place] [address]- 8066 Feb, [facility] [place] [facility] [address] [id number] [place] [address]- 8141 Feb, [facility] [place] [facility] [address] [id number] [place] [address]- 2077 Feb, [facility] [place] [facility] [address] [id number] [place] [address]- 2467 Feb, [facility] [place] [facility] [address] [id number] [place] [address]- 0188 Feb, [facility] [place] [facility] [address] [id number] [place] [address]- 5515 Feb, [facility] [place] [facility] [address] [id number] [place] [address]- 8873 Feb, [facility] [place] [facility] [address] [id number] [place] [address]- 3516 Feb, [facility] [place] [facility] [address] [id number] [address]- 8652 Feb, [facility] [place] [facility] [address] [id number] 9697 Feb, [facility] [place] [facility] [address] [id number], [place] [address]- 7569 Feb, [facility] [place] [facility] [address] [id number] 0293 Feb, [facility] [place] [facility] [address] [id number] [place] [address]- 6720 07 Feb, 2013 [facility] [place] [facility] [address] [id number] [place] [address]- 6457 Feb, [facility] [place] [facility] [address] [id number] [place] [address]- 3161 Feb, 2013 [facility] [place] [facility] [address] [id number] [place] [address]- 2347 Feb, [facility] [place] [facility] [address] [id number] [place] [address]- 1114 Jan, 2013 [facility] [place] [facility] [address] [id number] [place] [address]- 7189 23 Jan, 2013 [facility] [place] [facility] [address] [id number] [place] [address]- 8443 20 Jan, 2014 [facility] [place] [facility] [address] [id number] [place] [address]- 6761 19 Jan, 2013 [facility] [place] [facility] [address] [id number] [place] [address]- 2747 11 Jan, 2014 [facility] [place] [facility] [address] [id number] [place] [address]- 7761 Jan, [facility] [place] [facility] [address] [id number] [place] [address]- 7610 Jan, [facility] [place] [facility] [address] [id number] [place] [address]- 8386 Jan, 2013 [facility] [place] [facility] [address] [id number] [place] [address]- 8768 Dec, [facility] [place] [facility] [address] [id number] [place] [address]- 6796 Dec, [facility] [place] [facility] [address] [id number] [place] [address]- 9874 Nov, [facility] [place] [facility] [address] [id number] [place] [address]- 8645 Nov, [facility] [place] [facility] [address] [id number] [place] [address]- 8146 Nov, [facility] [place] [facility] [address] [id number] [place] [address]- 0378 Nov, [facility] [place] [facility] [address] [id number] [place] [address]- 7921 Nov, [facility] [place] [facility] [address] [id number] [place] [address]- 5491 Nov, [facility] [place] [facility] [address] [id number] [place] [address]- 1722 Nov, [facility] [place] [facility] [address] [id number] [place] [address]- 9740 Nov, [facility] [place] [facility] [address] [id number] [place] [address]- 2004 Nov, [facility] [place] [facility] [address] [id number] [place] [address]- 6185 Oct, [facility] [place] [facility] [address] [id number] [place] [address]- 2521 Oct, [facility] [place] [facility] [address] [id number] [place] [address]- 4541 Oct, [facility] [place] [facility] [address] [id number] [place] [address]- 3897 Oct, [facility] [place] [facility] [address] [id number] [place] [address]- 6717 Oct, [facility] [place] [facility] [address] [id number] [place] [address]- 0211 Oct, [facility] [place] [facility] [address] [id number] [place] [address]- 2167 September, [facility] [place] [facility] [address] [id number] [place] [address]- 4694 September, [facility] [place] [facility] [address] [id number] [place] [address]- 8407 September, [facility] [address] [id number] [place] 8952 September, [facility] [address] [id number] [place] [address]- 4520 September, [facility] [address] [id number] [place] [address]- 0367 September, [facility] [address] [id number] [place] [address]- 6848 September, [facility] [address] [id number] [place] 0419 September, [facility] [address] [id number] [place] [address]- 2118 September, [facility] [address] [id number] [place] [address]- 4240 September, [facility] [address] [id number] [place] [address]- 1877 September, [facility] [address] [id number] [place] [address]- 8624 September, [facility] [address] [id number] [place] [address]- 2099 September, [facility] [address] [id number] [place] [address]- 7156 September, [facility] [address] [id number] [place] [address]- 5493 September, [facility] [place] [facility] [address] [id number] [place] 2728 September, [facility] [place] [facility] [address] [id number] [place] 8855 September, [facility] [address] [id number] [place] [address]- 6015 September, [facility] [place] [facility] [address] [id number] [place] [address]- 7462 September, [facility] [place] [facility] [address] [id number] [place] [address]- 8719 September, [facility] [place] [facility] [address] [id number] [place] [address]- 5582 Aug, [facility] [place] [facility] [address] [id number] [place] [address]- 7502 Aug, [facility] [place] [facility] [address] [id number] [place] [address]- 8608 Aug, [facility] [place] [facility] [address] [id number] [place] [address]- 7549 Aug, [facility] [place] [facility] [address] [id number] [place] [address]- 1040 Aug, [facility] [place] [facility] [address] [id number] [place] [address]- 9062 Aug, [facility] [place] [facility] [address] [id number] [place] [address]- 7594 Aug, [facility] [place] [facility] [address] [id number] [place] [address]- 4412 Aug, [facility] [place] [facility] [address] [id number] [place] [address]- 7674 Aug, [facility] [place] [facility] [address] [id number] [place] [address]- 1510 Aug, [facility] [place] [facility] [address] [id number] [place] [address]- 9785 Aug, [facility] [place] [facility] [address] [id number] [place] [address]- 9209 Aug, [facility] [place] [facility] [address] [id number] [place] [address]- 9117 Aug, [facility] [place] [facility] [address] [id number] [place] [address]- 5955 Aug, [facility] [place] [facility] [address] [id number] [place] [address]- 4661 Aug, [facility] [place] [facility] [address] [id number] [place] [address]- 0337 Jul, [facility] [place] [facility] [address] [id number] [place] [address]- 8616 Jul, [facility] [place] [facility] [address] [id number] [place] [address]- 1754 Jul, [facility] [place] [facility] [address] [id number] [place] [address]- 1758 Jul, [facility] [place] [facility] [address] [id number] [place] [address]- 6404 Jul, [facility] [place] [facility] [address] [id number] [place] [address]- [address] Jul, [facility] [place] [facility] [address] [id number] [place] [address] Jul, [facility] [place] [facility] [address] [id number] [place] [address] Jul, [facility] [place] [facility] [address] [id number] [place] [address] Jul, [facility] [place] [facility] [address] [id number] [place] [address] Jul, [facility] [place] [facility] [address] [id number] [place] [address] Jul, [facility] [place] [facility] [address] [id number] [place] [address] Jul, [facility] [place] [facility] [address] [id number] [place] [address] Jul, [facility] [place] [facility] [address] [id number] [place] [address] Jul, [facility] [place] [facility] [address] [id number] [place] [address] Jul, [facility] [place] [facility] [address] [id number] [place] [address] Jun, [facility] [place] [facility] [address] [id number] [place] [address] Jun, [facility] [place] [facility] [address] [id number] [place] [address] Jun, [facility] [place] [facility] [address] [id number] [place] [address] Jun, [facility] [place] [facility] [address] [id number] [place] [address] Jun, [facility] [place] [facility] [address] [id number] [place] [address]- [address]37 Jun, [facility] [place] [facility] [address] [id number] [place] [address]- [address] May, [facility] [place] [facility] [address] [id number] [place] [address]- [address] May, [facility] [place] [facility] [address] [id number] [place] [address]- [address] May, [facility] [place] [facility] [address] [id number] [place] [address] May, [facility] [place] [facility] [address] [id number] [place] [address]- [address] May, [facility] [place] [facility] [address] [id number] [place] [address]- [address] May, [facility] [place] [facility] [address] [id number] [place] [address] May, [facility] [place] [facility] [address] [id number] [place] [address]- [address] May, [facility] [place] [facility] [address] [id number] [place] [address] May, [facility] [address] [id number] [place] [address]- [address] May, [facility] [place] [facility] [address] [id number] [place] [address]- [address]39 May, [facility] [place] [facility] [address] [id number] [place] [address]- 100[address] May, [facility] [place] [facility] [address] [id number] [place] [address]- 7912 May, [facility] [place] [facility] [address] [id number] [place] [address]- [address] May, [facility] [place] [facility] [address] [id number] [place] [address]- [address] May, [facility] [place] [facility] [address] [id number] [place] [address] Apr, [facility] [place] [facility] [address] [id number] [place] [address]- [address] Apr, [facility] [place] [facility] [address] [id number] [place] [address]- [address] Apr, [facility] [place] [facility] [address] [id number] [place] [address] Apr, [facility] [place] [facility] [address] [id number] [place] [address]- [address] Apr, [facility] [place] [facility] [address] [id number] [place] [address]- [address] Apr, [facility] [place] [facility] [address] [id number] [place] [address]- [address] Apr, [facility] [place] [facility] [address] [id number] [place] [address]- [address] Apr, [facility] [place] [facility] [address] [id number] [place] [address]- [address]491 Apr, [facility] [place] [facility] [address] [id number] [place] [address]- [address] Apr, [facility] [address] [id number] [place] [address]- [address] Mar, [facility] [address] [id number] [place] [address]- [address] Mar, [facility] [address] [id number] [place] [address]- [address] Mar, [facility] [address] [id number] [place] [address]- [address] Mar, [facility] [address] [id number] [place] [address]- [address]642 Mar, [facility] [address] [id number] [place] [address]- [address] Mar, [facility] [address] [id number] [place] [address]- [address] Mar, [facility] [address] [id number] [place] [address]- [address] Mar, [facility] [address] [id number] [place] [address]- [address] Mar, [facility] [address] [id number] [place] [address]- 79[address] Mar, [facility] [address] [id number] [place] [address]- [address] Mar, [facility] [address] [id number] [place] [address]- [address] Mar, [facility] [place] [facility] [address] [id number] [place] [address]- [address] Mar, [facility] [place] [facility] [address] [id number] [place] [address]- [address]406 Mar, [facility] [address] [id number] [place] [address]- [address] Mar, [facility] [facility] [address] [id number] [place] [address] 18 Mar, 2013 [facility] [place] [facility] [address] [id number] [place] [address] 8065 Mar, [facility] [place] [facility] [address] [id number] [place] [address] 6091 Mar, [facility] [place] [facility] [address] [id number] [place] [address] 6681 Mar, [facility] [place] [facility] [address] [id number] [place] [address] 4325 Mar, [facility] [place] [facility] [address] [id number] [place] [address] 4138 Mar, [facility] [place] [facility] [address] [id number] [place] [address] 6345 Mar, [facility] [place] [facility] [address] [id number], [place] [address] 7025 Mar, [facility] [address] [id number], [place] [address] 6[address] Feb, [facility] [address] [id number], [place] [address] 1239 Feb, [facility] [address] [id number], [place] [address] 7809 Feb, [facility] [address] [id number], [place] [address] 5937 16 Feb, 2013 [facility] [facility] [address] [id number], [place] [address] 3034 15 Feb, 2013 [facility] [address] [id number], [place] [address] 6[address] Feb, [facility] [address] [facility] [id number], [place] [address] 3850 Feb, [facility] [address] [id number], [place] [address]- 6727 Feb, [facility] [address] [id number] [place] [address]- 5015 Feb, [facility] [address] [id number] [place] [address]- 7840 Feb, [facility] [place] [facility] [address] [id number] [place] [address]- 8244 30 Jan, 2013 [facility] [address] [id number] [place] [address]- 1240 26 Jan, 2013 [facility] [address] [id number] [place] [address]- 4575 24 Jan, 2013 [facility] [facility] [address] [id number] [place] [address]- 4247 23 Jan, 2013 [facility] [facility] [address] [id number] [place] [address]- 5092 17 Jan, 2013 [facility] [address] [id number] [place] [address]- 2333 Dec, [facility] [place] [facility] [address] [id number] [place] [address]- 0415 Dec, [facility] [facility] [address] [id number] [place] [address]- 8151 Dec, [facility] [facility] [address] [id number] [place] [address]- 3261 15 Dec, 2012 [facility] [address] [id number] [place] [address]- 4043 14 Dec, 2012 [facility] [place] [facility] [address] [id number] [place] [address]- 1564 Dec, [facility] [place] [facility] [address] [id number] [place] [address]- 6125 Dec, [facility] [place] [facility] [address] [id number] [place] [address]- 9907 Nov, [facility] [address] [id number] [place] [address]- 2546 16 Nov, 2012 [facility] [address] [id number] [place] [address]- 0406 15 Nov, 2012 [facility] [address] [id number] [place] [address]- 2546 05 Nov, 2012 [facility] [address] [id number] [place] [address]- 2546 Nov, [facility] [address] [id number] [place] [address]- 5846 Oct, [facility] [address] [id number] [place] [address]- 6806 Oct, [facility] [address] [id number] [place] [address]- 2546 Oct, [facility] [address] [id number] [place] [address]- 9956 September, [facility] [address] [id number] [place] [address]- 6090 September, [facility] [address] [id number] [place] [address]- 1056 September, [facility] [address] [id number] [place] [address]- 5156 September, [facility] [address] [id number] [place] [address]- 6746 September, [facility] [address] [id number] [place] [address]- 2546 September, [facility] [address] [id number] [place] [address]- 2546 September, [facility] [address] [id number] [place] [address]- 2546 Aug, [facility] [address] [id number] [place] [address]- 3282 23 Aug, 2012 [facility] [address] [id number] [place] [address]- 5503 11 Aug, 2012 [facility] [address] [id number] [place] [address]- 2325 29 Jul, 2012 [facility] [address] [id number] [place] [address]- 3839 27 Jul, 2012 [facility] [address] [id number] [place] [address]- 4844 26 Jul, 2012 [facility] [address] [id number] [place] [address]- 1327 20 Jul, 2012 [facility] [address] [id number] [place] [address]- 5204 18 Jul, 2012 [facility] [address] [facility] [id number] [place] [address]- 0688 18 Jul, 2012 [facility] [address] [id number] [place] [address]- 9577 13 Jul, 2012 [facility] [address] [id number] [place] [address]- 3424 28 Jun, 2012 [facility] [address] [facility] [id number] [place] [address]- 7176 27 Jun, 2012 [facility] [address] [facility] [id number] [place] [address]- 5462 22 Jun, 2012 [facility] [address] [id number] [place] [address]- 2709 20 Jun, 2012 [facility] [address] [id number] [place] [address]- 8895 15 Jun, 2012 [facility] [address] [id number] [place] [address]- 4784 15 Jun, 2012 [facility] [address] [facility] [id number] [place] [address]- 3730 13 Jun, 2012 [facility] [address] [id number] [place] [address]- 0216 Jun, [facility] [address] [id number] [place] [address]- 1066 Jun, [facility] [address] [id number] [place] [address]- 2546 Jun, [facility] [address] [id number] [place] [address]- 4266 May, [facility] [address] [id number] [place] [address] 2549 May, [facility] [address] [id number] [place] [address]- 2396 May, [facility] [address] [id number] [place] [address]- 8209 May, [facility] [address] [id number] [place] [address]- 8838 May, [facility] [address] [id number] [place] [address]- 8169 May, [facility] [address] [id number] [place] [address]- 5765 31 Apr, 2012 [facility] [address] [id number] [place] [address] 2546 31 Apr, 2012 [facility] [address] [id number] [place] [address] 2546 Apr, [facility] [address] [id number] [place] [address] 2542 28 Apr, 2012 [facility] [address] [id number] [place] [address] 2546 26 Apr, 2012 [facility] [address] [id number] [place] [address]- 2546 20 Apr, 2012 [facility] [address] [id number] [place] [address]- 3840 Apr, [facility] [address] [id number] [place] [address]- 4656 Mar, [facility] [address] [id number] [place] [address]- 5765 Mar, [facility] [address] [facility] [id number] [place] [address]- 9203 Mar, [facility] [address] [id number] [place] [address]- 3105 Mar, [facility] [address] [id number] [place] [address]- 2568 Mar, [facility] [address] [id number], [place] [address]- 1449 Mar, [facility] [address] [id number] [place] [address]- 8629 Mar, [facility] [address] [id number], [place] [address]- 0260 Mar, [facility] [address] [id number], [place] [address]- 3823 Mar, [facility] [address] [id number], [place] [address]- 7002 Mar, [facility] [address] [id number], [place] [address]- 8484 Mar, [facility] [address] [id number], [place] [address]- 5985 Mar, [facility] [address] [id number], [place] [address]- 3191 Mar, [facility] [address] [facility] [id number], [place] [address]- 3701 Mar, [facility] [address] [facility] [id number], [place] [address]- 5778 Mar, [facility] [address] [id number] [place] [address]- 7807 Mar, [facility] [address] [id number] [place] [address]- 7998 Mar, [facility] [address] [id number] [place] [address]- 1788 Feb, [facility] [address] [id number] [place] [address]- 3104 Feb, 2011 [facility] [address] [id number] [place] [address]- 9109 Feb, [facility] [address] [id number] [place] [address]- 9628 Feb, [facility] [address] [id number] [place] [address]- 0144 Feb, [facility] [address] [id number] [place] [address]- 3373 Feb, [facility] [address] [id number] [place] [address]- 8756 Feb, [facility] [address] [id number] [place] [address]- 7316 Feb, [facility] [address] [facility] [id number] [place] [address]- 4771 Feb, [facility] [address] [id number] [place] [address]- 7169 Feb, [facility] [address] [id number] [place] [address]- 3328 Feb, [facility] [address] [id number] [place] [address]- 7336 27 Jan, 2011 [facility] [address] [id number] [place] [address]- 3362 25 Jan, 2012 [facility] [address] [id number] [place] [address]- 3315 13 Jan, 2012 [facility] [address] [id number] [place] [address]- 2417 12 Jan, 2012 [facility] [address] [id number] [place] [address]- 3141 Jan, [facility] [address] [id number] [place] [address]- 4908 Dec, [facility] [address] [id number] [place] [address]- 2954 Dec, [facility] [address] [id number] [place] [address]- 7094 Dec, [facility] [address] [id number] [place] [address]- 5396 Dec, [facility] [address] [id number] [place] [address]- 8273 Dec, [facility] [address] [id number] [place] [address]- 5223 Dec, [facility] [address] [id number] [place] [address]- 7776 Dec, [facility] [facility] [address] [id number] [place] [address]- 4258 Dec, [facility] [address] [id number] [place] [address]- 6693 Nov, [facility] [address] [id number] [place] [address]- 2908 Nov, [facility] [address] [id number] [place] [address]- 6399 Nov, [facility] [address] [id number] [place] [address]- 1686 Nov, [facility] [address] [id number] [place] [address]- 1982 Nov, [facility] [address] [id number] [place] [address]- 7248 Oct, [facility] [address] [id number] [place] [address]304 Oct, [facility] [facility] [address] [id number] [place] [address]- 8790 September, [facility] [address] [id number] [place] [address]- 9586 September, [facility] [facility] [address] [id number] [place] [address]- 6444 September, [facility] [address] [id number] [place] [address]- 1245 September, [facility] [place] [facility] [address] [id number] [place] [address]- 1499 September, [facility] [address] [id number] [place] [address]- 1694 September, [facility] [address] [id number] [place] [address]- 1304 September, [facility] [address] [id number] [place] [address]- 0896 September, [facility] [address] [id number] [place] [address]- 1439 September, [facility] [address] [id number] [place] [address]- 1208 September, [facility] [facility] [address] [id number] [place] [address]- 0890 September, [facility] [place] [facility] [address] [id number] [place] [address]- 3286 September, [facility] [address] [id number] [place] [address]- 0192 September, [facility] [address] [id number] [place] [address]- 0615 September, [facility] [address] [id number] [place] [address]- 9139 24 Aug, 2011 [facility] [address] [id number] [place] [address]- 1351 20 Aug, 2011 [facility] [address] [id number] [place] [address]- 7396 13 Aug, 2011 [facility] [address] [id number] [place] [address]- 3476 11 Aug, 2011 [facility] [address] [id number] [place] [address]- 6334 23 Jul, 2011 [facility] [address] [id number] [place] [address]- 8043 13 Jul, 2011 [facility] [address] [id number] [place] [address]- 1269 13 Jul, 2011 [facility] [address] [id number] [place] [address]- 7209 28 Jun, [address] [facility] [address] [id number] 26 Jun, 2011 [facility] [address] [id number] [place] [address]- 2722 13 Jun, 2011 [facility] [address] [id number] [place] [address]- 1913 10 Jun, 2011 [facility] [address] [id number] [place] [address]- 3656 07 Jun, 2011 [facility] [address] [id number] [place] [address]- 6306 07 Jun, 2011 [facility] [place] [facility] [address] [id number] [place] [address]- 5566 03 Jun, 2011 [facility] [place] [facility] [address] [id number] [place] [address]- 2536 02 Jun, 2011 [facility] [place] [facility] [address] [id number] [place] [address]- 2661 31 May, 2011 [facility] [address] [id number] [place] [address]- 9230 30 May, 2011 [facility] [address] [id number] [place] [address]- 5133 May, [facility] [address] [id number] [place] [address]- 8462 May, [facility] [address] [id number] [place] [address]- 1861 May, [facility] [address] [id number] [place] [address]- 0023 May, [facility] [address] [id number] [place] [address]- 2571 May, [facility] [address] [id number] [place] [address]- 9141 May, [facility] [place] [facility] [address] [id number] [place] [address]- 2684 May, [facility] [address] [id number] [place] [address]- 6808 May, [facility] [place] [facility] [address] [id number] [place] [address]- 0105 May, [facility] [address] [id number], [place] [address]- 9563 May, [facility] [place] [facility] [address] [id number], [place] [address]- 2420 May, [facility] [place] [facility] [address] [id number] [place] [address]- 8604 May, [facility] [place] [facility] [address] [id number] [place] [address]- 2395 30 Apr, 2011 [facility] [place] [facility] [address] [id number] [place] [address]- 6357 16 Apr, 2011 [facility] [place] [facility] [address] [id number] [place] [address]- 0157 05 Apr, 2011 [facility] [place] [facility] [address] [id number] [place] [address]- 3436 17 Mar, 2011 [facility] [place] [facility] [address] [id number] [place] [address] 2546 Mar, [facility] [place] [facility] [address] [id number] [place] [address]- 4176 31 Feb, 2011 [facility] [place] [facility] [address] [id number] [place] [address] 2546 26 Feb, 2011 [facility] [place] [facility] [address] [id number] [place] [address]- 6701 Feb, [facility] [place] [facility] [address] [id number] [place] [address]- 2667 20 Feb, 2011 [facility] [place] [facility] [address] [id number] [place] [address]- 8689 13 Feb, 2011 [facility] [place] [facility] [address] [id number] [place] [address]- 2218 28 Apr, 2010 [facility] [place] [facility] [address] [id number] [place] [address] 2546 22 Apr, 2010 [facility] [place] [facility] [address] [facility] [id number] [place] [address] 2545 16 Apr, 2010 [facility] [place] [facility] [address] [id number] [place] [address] 2546 15 Apr, 2010 [facility] [place] [facility] [address] [id number] [place] [address] 2546 15 Apr, 2010 [facility] [place] [facility] [address] [id number] [place] [address] 2546 Apr, [facility] [place] [facility] [address] [id number] [place] [address] 24 Mar, 2010 [facility] [place] [facility] [address] [id number] [place] [address] 17 Mar, 2010 [facility] [id number] [address] 17 Mar, 2010 [facility] [id number] [address] 28 Feb, 2010 [facility] [id number] [address] Feb, [facility] [id number] [place] [id number] Feb, [facility] [id number] [place] [address] Feb, [facility] [id number] [place] [id number] Dec, [facility] [id number] [address] Dec, [facility] [id number] [place] [id number]- 1997 Oct, [facility] [id number] [address] Mar, [facility] [id number] [place] [address] Mar, [facility] [id number] [place] [address] September, IMMUNIZATIONS No Known Immunizations SOCIAL HISTORY Never Assessed REASON FOR VISIT EMR-[facility] PLAN OF CARE VITAL SIGNS MEDICATIONS Unknown [...]
--- OUTSIDE RECORDS SUMMARY | 2018-09-19 08:55 | XMS REPORT ---
Author Author Migration, Doctor Organization [facility] Address Unknown Phone Unavailable Care Team Providers Care Washing [employer] Supervisor Name Role Phone Migration, Doctor Unavailable Unavailable PROBLEMS Type Condition ICD9-CM Code [id number] Code Onset Dates Condition Status SNOMED Code Problem Hypokalemia E87.6 Active 785736521 Problem Generalized anxiety disorder F41.1 Active 69916762 Problem Pain in right knee M25.561 Active 81626696 Problem Right low back pain, with sciatica presence unspecified M54.5 Active 736447864 Problem Right foot pain M79.671 Active 50263478 Problem UTI symptoms R39.9 Active 70560123 Problem Essential hypertension I10 Active 05506631 Problem Gastroesophageal reflux disease without esophagitis K21.9 Active 017515646 Problem Weight decrease R63.4 Active 029806182 Problem Depression, unspecified depression type F32.9 Active 57790638 Problem Right upper quadrant abdominal pain R10.11 Active 190681329 Problem Tobacco abuse Z72.0 Active 23335765 Problem Insomnia, unspecified type G47.00 Active 455120999 Problem Weight loss R63.4 Active 441072088 Problem Post-traumatic stress disorder, chronic F43.12 Active 72663810 Problem Pulmonary emphysema, unspecified emphysema type J43.9 Active 15591164 Problem Neuropathy G62.9 Active 629980879 Problem Anxiety F41.9 Active 15969415 Problem Other emphysema J43.8 Active 02787457 Problem Other chronic pain G89.29 Active 82578852 Problem Chronic pain G89.29 Active 30004280 Problem Opioid use disorder, moderate, dependence F11.20 Active 40353840 Problem Back pain M54.9 Active 067148581 Problem Bone pain M89.8X9 Active 27995817 Problem Panic attacks F41.0 Active 088663626 Problem Kidney stones N20.0 Active 15130350 Problem Renal calculus, right N20.0 Active 93746773 Problem Generalized abdominal pain R10.84 Active 898626480 ALLERGIES No Information ENCOUNTERS Encounter Location Date Diagnosis [facility] [address] [address] Feb, [facility] [id number] [place] [address] 89844- 4057 Dec, [facility] [id number] [place] [address] 39452- 4661 Dec, [facility] [id number] [place] [address] 07666- 5778 Dec, Medicare welcome exam Z00.00 [facility] [id number] [place] [address] 18158- 9655 17 Nov, 2017 Opioid use disorder, moderate, dependence F11.20 [facility] [id number] [place] [address] 31893- 5529 16 Nov, 2017 Pelvic pain R10.2 ; Acute pyelonephritis N10 and Essential hypertension I10 [facility] [id number] [place] [address] 93339- 6828 28 Oct, 2017 Medicare welcome exam Z00.00 [facility] [id number] [place] [address] 63983- 5466 Oct, Gross hematuria R31.0 ; Urinary tract infection without hematuria, site unspecified N39.0 and Weakness R53.1 [facility] [id number] [place] [address] 91986- 4869 Oct, [facility] [id number] [place] [address] 08895- 2425 Oct, [facility] [id number] [place] [address] 51320- 5445 Oct, Medicare welcome exam Z00.00 [facility] [id number] [place] [address] 06273- 7489 September, Back pain M54.9 and Right anterior knee pain M25.561 [facility] [id number] [place] [address] 51820- 2444 September, [facility] [address], [place] [address] 1681 September, [facility] [id number] [place] [address] 45015- 0785 September, Essential hypertension I10 [facility] [id number] [place] [address] 50573- 5564 September, [facility] [id number] [place] [address] 80336- 6834 September, RLQ abdominal pain R10.31 ; Low back pain M54.5 and Other chronic pain G89.29 [facility] [id number] [place] [address] 09316- 1663 Aug, Medicare welcome exam Z00.00 [facility] [id number] [place] [address] 49821- 1524 Aug, [facility] [id number] [place] [address] 25628- 0702 Aug, Acute pyelonephritis N10 and Medicare welcome exam Z00.00 [facility] [id number] [place] [address] 06218 -1002 Aug, Dysuria R30.0 and Acute pyelonephritis N10 [facility] [address], [place] [address]- 5345 Aug, [facility] [id number] [place] [address] 65182- 1600 Aug, [facility] [id number] [place] [address] 38553- 2956 Aug, [facility] [id number] [place] [address] 81304- 0256 Aug, [facility] [address], [place] [address]- 9854 Jul, [facility] [id number] [place] [address] 76352- 7919 Jul, Renal calculus, right N20.0 and Medicare welcome exam Z00.00 [facility] [id number] [place] [address] 11488 -6069 Jul, Dysuria R30.0 and Renal calculus, right N20.0 [facility] [id number] [place] [address] 17745- 5704 Jul, Medicare welcome exam Z00.00 [facility] [id number] [place] [address] 66058- 7043 Jun, Gastroesophageal reflux disease without esophagitis K21.9 and Generalized abdominal pain R10.84 [facility] [id number] [place] [address] 47483- 3275 Jun, Medicare welcome exam Z00.00 [facility] [id number] [place] [address] 41570- 5708 Jun, [facility] [id number] [place] [address] 31710- 1902 Jun, Medicare welcome exam Z00.00 and Encounter for screening mammogram for malignant neoplasm of breast Z12.31 [facility] [id number] [place] [address] 51845- 1767 Jun, Chronic pain G89.29 [facility] [id number] [place] [address] 45277- 5337 May, [facility] [id number] [place] [address] 06931- 7509 May, Pelvic pain R10.2 [facility] [id number] [place] [address] 62969- 8999 May, Pelvic pain R10.2 [facility] [id number] [place] [address] 79558 -9188 May, Renal calculus, right N20.0 [facility] [id number] [place] [address] 00241- 9181 May, Hematuria, unspecified type R31.9 and Nephrolithiasis N20.0 [facility] [id number] [place] [address] 09707 -3213 May, Dysuria R30.0 and Nephrolithiasis N20.0 [facility] [id number] [place] [address] 73076- 5049 May, [facility] [id number] [place] [address] 51451 -6785 May, Abdominal pain R10.9 and Kidney stone N20.0 [facility] [id number] [place] [address] 97996- 7976 May, [facility] [id number] [place] [address] 38685- 8107 May, Chronic pain G89.29 and Panic attacks F41.0 [facility] [id number] [place] [address] 08357- 5525 May, Urinary tract infection without hematuria, site unspecified N39.0 [facility] [id number] [place] [address] 92617- 6591 Apr, Right lower quadrant abdominal pain R10.31 and Abnormal serum lipase level R74.8 [facility] [id number] [place] [address] 57224- 7571 Apr, Recurrent urinary tract infection N39.0 [facility] [id number] [place] [address] 38323- 0615 Apr, UTI symptoms R39.9 ; Recurrent urinary tract infection N39.0 and Pelvic pain R10.2 [facility] [id number] [place] [address] 72820- 0688 Apr, Chronic pain G89.29 and Panic attacks F41.0 [facility] [id number] [place] [address] 67112- 5617 Apr, Dysuria R30.0 [facility] [id number] [place] [address] 78860- 9352 Apr, [facility] [id number] [place] [address] 69659- 2053 Apr, Dysuria R30.0 and Urinary tract infection without hematuria , site unspecified N39.0 [facility] [id number] [place] [address] 51718- 1984 Mar, UTI symptoms R39.9 [facility] [id number] [place] [address] 44672- 9991 Mar, [facility] [id number] [place] [address] 59106- 7572 Mar, Panic attacks F41.0 and Chronic pain G89.29 [facility] [address] 54801- 8607 Mar, [facility] [id number] [place] [address] 92566- 0773 Mar, Dysuria R30.0 [facility] [id number] [place] [address] 65716- 4392 Mar, Dysuria R30.0 [facility] [id number] [place] [address] 24268- 7975 Feb, Chronic pain G89.29 ; Shortness of breath R06.02 ; Weight loss R63.4 ; Encounter for immunization Z23 ; Bone pain M89.8X9 ; Right anterior knee pain M25.561 and Cough R05 [facility] [id number] [place] [address] 28473- 3591 Feb, Shortness of breath R06.02 [facility] [id number] [place] [address] 99967- 9564 Feb, [facility] [id number] [place] [address] 57659- 0225 Feb, Panic attacks F41.0 and Chronic pain G89.29 [facility] [address] 16407- 0015 Feb, [facility] [address] 14655- 2244 04 Feb, 2017 Panic attacks F41.0 ; Shortness of breath R06.02 and Encounter for immunization Z23 [facility] [address] 14627- 4669 Jan, [facility] [address] 91919- 1604 15 Jan, 2017 Anxiety F41.9 and Chronic pain G89.29 [facility] [address] 05440- 4921 Dec, Anxiety F41.9 and Chronic pain G89.29 [facility] [address] 16883- 7629 Nov, Chronic pain G89.29 [facility] [address] 05710- 3117 Nov, Anxiety F41.9 [facility] [address] 74591- 3316 Nov, Chronic pain G89.29 ; Essential hypertension I10 and Other emphysema J43.8 [facility] [id number] [place] [address] 41563- 7122 Oct, Anxiety F41.9 [facility] [address] 40355- 2176 Oct, [facility] [address] 93643- 7646 Oct, Chronic pain G89.29 [facility] [address] 07418- 9592 September, Recurrent UTI N39.0 ; Neuropathy G62.9 and Anxiety F41.9 [facility] [id number] [place] [address] 64455- 9895 September, [facility] [id number] [place] [address] 24174- 9655 September, Chronic pain G89.29 [facility] [id number] [place] [address] 65289- 3609 September, [facility] [address] 13654- 9061 Aug, Post-traumatic stress disorder, chronic F43.12 ; Chronic urinary tract infection N39.0 ; Gastroesophageal reflux disease without esophagitis K21.9 ; Chronic pain G89.29 ; Essential hypertension I10 and Tobacco abuse Z72.0 [facility] [id number] [place] [address] 27524 -7471 Aug, [facility] [address] 51894- 1061 Aug, Chronic pain G89.29 [facility] [address] 92185- 5302 Aug, Insomnia, unspecified type G47.00 [facility] [id number] [place] [address] 57331- 0300 Aug, [facility] [id number] [place] [address] 91795- 0679 Jul, Chronic pain G89.29 [facility] [id number] [place] [address] 42044- 3311 Jul, [facility] [address] 54662- 9398 Jul, [facility] [id number] [place] [address] 71403- 4101 Jul, [facility] [address] 09973- 8425 15 Jul, 2016 Recurrent UTI (urinary tract infection) N39.0 [facility] [id number] [place] [address] 34354- 5067 14 Jul, 2016 [facility] [id number] [place] [address] 37431- 0163 27 Jun, 2016 Chronic pain G89.29 [facility] [id number] [place] [address] 48128- 8551 17 Jun, 2016 [facility] [id number] [place] [address] 50544- 0026 Jun, [facility] [id number] [place] [address] 45683- 4655 May, Chronic pain G89.29 [facility] [id number] [place] [address] 37507- 6091 May, Weight loss R63.4 and Shortness of breath R06.02 [facility] [id number] [place] [address] 15954- 6135 May, Chronic pain G89.29 ; Weight loss R63.4 and Tobacco abuse Z72.0 [facility] [address] [place] [address] 73785- 0432 May, [facility] [address] [place] [address] 15277- 4611 May, Hypoxia R09.02 [facility] [id number] [place] [address] 74089- 8362 May, [facility] [id number] [place] [address] 04464- 5814 May, Pulmonary emphysema, unspecified emphysema type J43.9 [facility] [id number] [place] [address] 97529 -9006 May, [facility] [id number] [place] [address] 06268- 6788 May, [facility] [id number] [place] [address] 23604- 9149 May, [facility] [address] 04728- 7420 May, Chronic pain G89.29 ; Encounter for immunization Z23 ; Right anterior knee pain M25.561 and Cough R05 [facility] [address] 03948- 5735 Apr, Chronic pain G89.29 [facility] [id number] [place] [address] 76789- 7756 Apr, [facility] [address] 46988- 7487 Apr, Generalized anxiety disorder F41.1 and Depression, unspecified depression type F32.9 [facility] [address] 02916- 5300 Apr, Chronic pain G89.29 ; Hypokalemia E87.6 and Insomnia, unspecified type G47.00 [facility] [id number] [place] [address] 13794- 4479 Apr, [facility] [id number] [place] [address] 76060- 3200 Apr, Chronic pain G89.29 [facility] [id number] [place] [address] 95960- 8149 Apr, [facility] [id number] [place] [address] 82214- 5318 Mar, [facility] [id number] [place] [address] 22596- 7120 Mar, Insomnia, unspecified type G47.00 [facility] [id number] [place] [address] 47778- 3233 Mar, Chronic pain G89.29 [facility] [id number] [place] [address] 76873- 3617 Mar, [facility] [address], [place] [address]- 9048 Feb, [facility] [address], [place] [address]- 9600 Feb, [facility] [id number] [place] [address] 32850- 7111 Feb, [facility] [id number] [place] [address] 56907- 8226 Feb, [facility] [id number] [place] [address] 56465- 3546 Feb, [facility] [id number] [place] [address] 10156- 9554 29 Jan, 2016 [facility] [id number] [place] [address] 85096- 8427 26 Jan, 2015 [facility] [address] [address]- 5175 20 Jan, 2015 [facility] [id number] [place] [address] 23479- 2761 13 Jan, 2015 [facility] [address] [address]- 5991 12 Jan, 2016 [facility] [id number] [place] [address] 16239- 3557 07 Jan, 2015 Chronic pain G89.29 [facility] [address] [address]- 6772 Jan, 2015 Chronic pain G89.29 and Fibromyalgia M79.7 [facility] [address], [place] [address]- 5626 Dec, Depression, unspecified depression type F32.9 and Generalized anxiety disorder 300.02 [facility] [address] [address]- 8755 Dec, Dysthymia F34.1 ; Insomnia, unspecified type G47.00 and Chronic pain G89.29 [facility] [address] [facility] [id number] [place] [address] 31578- 9792 Dec, Chronic pain G89.29 [facility] [id number] [place] [address] 95585 2546 Dec, Insomnia, unspecified type G47.00 [facility] [address] [facility] [id number] [place] [address] 34065 2545 Dec, Fibromyalgia M79.7 and Chronic pain G89.29 [facility] [id number] [place] [address] 32826- 9396 Dec, [facility] [id number] [place] [address] 55574 2546 Dec, [facility] [id number] [place] [address] 26737- 0190 Dec, [facility] [id number] [place] [address] 64442 2546 Dec, [facility] [id number] [place] [address] 76718- 1311 Dec, Chronic pain G89.29 [facility] [id number] [place] [address] 39912 254 Dec, [facility] [id number] [place] [address] 65909 2545 Dec, [facility] [id number] [place] [address] 56906 2546 Dec, [facility] [id number] [place] [address] 63467 2547 Dec, Chronic pain G89.29 and Dysthymia F34.1 [facility] [id number] [place] [address] 18325 254 Nov, [facility] [id number] [place] [address] 53622- 2556 Nov, Hypokalemia E87.6 and Chronic pain G89.29 [facility] [address] 96153- 5946 Nov, Back pain M54.9 and Pain in right knee M25.561 [facility] [address] 35438- 5069 Nov, [facility] [address] 20950- 6860 Nov, Chronic pain G89.29 [facility] [address] 62121- 5047 Nov, Chronic pain G89.29 ; Weight loss R63.4 ; Bone pain M89.8X9 and Insomnia, unspecified type G47.00 [facility] [address] 23805- 4682 Nov, Chronic pain G89.29 [facility] [address] 60243- 1375 Nov, Chronic pain G89.29 [facility] [address] 01356- 6250 30 Oct, 2015 Chronic pain G89.29 [facility] [id number] [place] [address] 36062- 9222 Oct, UTI symptoms R39.9 [facility] [id number] [place] [address] 26493- 3608 27 Oct, 2015 Chronic pain G89.29 [facility] [address] 59970- 8622 20 Oct, 2015 Chronic pain G89.29 [facility] [id number] [place] [address] 48846- 2022 13 Oct, 2015 Chronic pain G89.29 [place] [address] [address]- [address] Oct, Right upper quadrant abdominal pain R10.11 [facility] [id number] [address] Oct, Chronic pain G89.29 [facility] [id number] [address] Oct, [facility] [id number] [place] [address]3706- 7212 September, Chronic pain G89.29 [facility] [id number] [place] [address] 85617- 3761 September, Dysuria R30.0 and Urinary tract infection without hematuria , site unspecified N39.0 [facility] [id number] [place] [address] 14219- 8672 September, [facility] [id number] [place] [address] 96824- 2583 September, Dysuria R30.0 [facility] [id number] [place] [address] 22048- 8620 September, Chronic pain G89.29 [facility] [id number] [place] [address] 47437- 9484 September, Chronic pain G89.29 and Essential hypertension I10 [facility] [id number] [address] September, [facility] [id number] [place] [address] 45723- 2726 September, [facility] [id number] [place] [address] 53005- 2091 September, [facility] [id number] [place] [address] 29593- 2902 Aug, UTI symptoms R39.9 [facility] [id number] [address] Aug, Dysuria R30.0 [facility] [id number] [address] Aug, [facility] [id number] [place] [address] 28205- 3762 Aug, [facility] [id number] [place] [address] 95443- 4887 Aug, [facility] [id number] [place] [address] 49933- 7142 Aug, Chronic pain G89.29 [facility] [id number] [place] [address] 49679- 9476 Aug, Dysthymia F34.1 [facility] [id number] [place] [address] 02911- 1438 Aug, Conjunctivitis, unspecified conjunctivitis type, unspecified laterality H10.9 [facility] [id number] [place] [address] 79750- 0362 Jul, Chronic pain G89.29 ; Back pain M54.9 ; Tobacco abuse Z72.0 and Weight decrease R63.4 [facility] [id number] [place] [address] 07218- 5692 Jul, [facility] [id number] [place] [address] 59461- 6865 Jul, [facility] [id number] [place] [address] 81581- 6599 24 Jul, 2015 Chronic pain G89.29 [facility] [address], [place] [address] 4694 Jul, [facility] [id number] [place] [address] 84922- 1360 Jul, [facility] [id number] [place] [address] 79706- 6890 Jul, [facility] [id number] [place] [address] 85648- 3649 17 Jul, 2015 [facility] [address], [place] [address] 2463 17 Jul, 2015 Chronic pain G89.29 [facility] [address], [place] [address] 3302 16 Jul, 2015 Chronic pain G89.29 [facility] [id number] [place] [address] 27317- 7514 15 Jul, 2015 [facility] [id number] [place] [address] 44832- 7412 Jul, [facility] [id number] [place] [address] 48770- 3047 Jul, [facility] [id number] [place] [address] 06273- 3242 Jul, [facility] [id number] [place] [address] 15771- 0380 Jun, [facility] [id number] [place] [address] 96998- 8878 Jun, Depression, unspecified depression type F32.9 [facility] [id number] [place] [address] 70132- 4188 Jun, Pain in right knee M25.561 [facility] [id number] [place] [address] 60112- 2311 24 Jun, 2015 Chronic pain G89.29 ; Back pain M54.9 ; Bone pain M89.8X9 and Weight loss R63.4 [facility] [id number] [place] [address] 56244- 6150 Jun, [facility] [id number] [place] [address] 89320- 3783 May, [facility] [address], [place] [address]- 4531 May, UTI symptoms R39.9 ; Pain in right knee M25.561 ; Right low back pain, with sciatica presence unspecified M54.5 ; Right foot pain M79.671 ; Hypokalemia E87.6 and Screening, lipid Z13.220 [facility] [id number] [place] [address] 05789- 8673 May, [facility] [id number] [place] [address] 42724- 5814 May, [facility] [id number] [place] [address] 70851- 7179 Mar, [facility] [id number] [place] [address] 67143- 8823 Mar, [facility] [id number] [place] [address] 22449- 5712 Mar, Hypokalemia E87.6 [facility] [address] [address]- 6299 Mar, Pain in right leg M79.604 ; Encounter for immunization Z23 ; Pain in right knee M25.561 and Hypokalemia E87.6 [facility] [id number] [place] [address] 22782- 0696 Jan, [facility] [id number] [place] [address] 83977- 2271 Jan, [facility] [id number] [place] [address] 99625 2541 Jan, Abdominal pain, generalized 789.07 [facility] [id number] [place] [address] 21039 2540 Jan, Abdominal pain, generalized 789.07 [facility] [id number] [place] [address] 43754- 6772 Dec, [facility] [id number] [place] [address] 53098- 3721 Dec, [facility] [address], [place] [address]- 9556 Dec, [facility] [id number] [place] [address] 31647- 6407 Nov, Hallux valgus 735.0 and Hammertoe 735.4 [facility] [address], [place] [address]- 9896 Nov, [facility] [id number] [place] [address] 32746- 3666 Nov, Hallux valgus 735.0 and Hammer toe 735.4 [facility] [id number] [place] [address] 21902- 8956 Oct, [facility] [id number] [place] [address] 14824- 4796 Oct, [facility] [id number] [place] [address] 69606- 3564 Oct, Pre-op evaluation V72.84 [facility] [address], [place] [address]- 4287 Oct, [facility] [id number] [place] [address] 92816- 3404 Oct, [facility] [address], [place] [address]- 0459 September, [facility] [address], [place] [address] 2546 September, [facility] [id number] [address]- 0806 September, Hallux valgus (acquired) 735.0 and Other hammer toe ( acquired) 735.4 [facility] [address], [place] [address]- 2546 Aug, [facility] [id number] [place] [address] 64983- 2239 Aug, [facility] [place] [facility] [address] [id number] [place] [address]- 8492 Jul, [facility] [place] [facility] [address] [id number] [place] [address]- 2500 Jul, [facility] [place] [facility] [address] [id number] [place] [address]- 5351 Jul, [facility] [place] [facility] [address] [id number] [place] [address]- 7594 Jul, [facility] [place] [facility] [address] [id number] [place] [address]- 6825 Jul, [facility] [place] [facility] [address] [id number] [place] [address]- 7530 Jul, [facility] [place] [facility] [address] [facility] [id number] [place] [address]- 2906 Jul, [facility] [place] [facility] [address] [id number] [place] [address]- 8507 Jul, [facility] [place] [facility] [address] [id number] [place] [address]- 8892 Jun, [facility] [place] [facility] [address] [facility] [id number] [place] [address]- 1918 Jun, [facility] [place] [facility] [address] [id number] [place] [address]- 3881 Jun, 2014 [facility] [place] [facility] [address] [id number] [place] [address]- 3712 Jun, [facility] [place] [facility] [address] [id number] [place] [address]- 9607 Jun, [facility] [place] [facility] [address] [id number] [place] [address]- 3766 Jun, [facility] [place] [facility] [address] [facility] [id number] [place] [address]- 0639 Jun, [facility] [place] [facility] [address] [id number] [place] [address]- 6010 Jun, [facility] [address] [id number] [place] [address]- 0196 Jun, [facility] [place] [facility] [address] [id number] [place] [address]- 7816 Jun, [facility] [place] [facility] [address] [id number] [place] [address]- 9004 May, [facility] [place] [facility] [address] [id number] [place] [address]- 9338 May, [facility] [place] [facility] [address] [id number] [place] [address]- 4990 May, [facility] [place] [facility] [address] [id number] [place] [address]- 9186 May, [facility] [place] [facility] [address] [id number] [place] [address]- 7990 May, [facility] [address] [id number] [place] [address]- 9716 May, [facility] [place] [facility] [address] [id number] [place] [address]- 4340 May, [facility] [place] [facility] [address] [id number] [place] [address]- 1190 May, [facility] [place] [facility] [address] [id number] [place] [address]- 0224 May, [facility] [place] [facility] [address] [id number] [place] [address]- 4750 May, [facility] [place] [facility] [address] [id number] [place] [address]- 4897 May, [facility] [place] [facility] [address] [id number] [place] [address]- 8836 May, [facility] [place] [facility] [address] [id number] [place] [address]- 5051 May, [facility] [place] [facility] [address] [id number] [place] [address]- 3127 May, [facility] [place] [facility] [address] [id number] [place] [address]- 3449 May, [facility] [place] [facility] [address] [id number] [place] [address]- 7162 May, [facility] [place] [facility] [address] [id number] [place] [address]- 1780 May, [facility] [place] [facility] [address] [id number] [place] [address]- 6563 May, [facility] [place] [facility] [address] [id number] [place] [address]- 0335 Apr, [facility] [place] [facility] [address] [id number] [place] [address]- 1384 Apr, [facility] [place] [facility] [address] [id number] [place] [address]- 5411 Apr, [facility] [place] [facility] [address] [id number] [place] [address]- 8066 Apr, [facility] [place] [facility] [address] [id number] [place] [address]- 4723 Apr, [facility] [place] [facility] [address] [id number] [place] [address]- 0045 Apr, [facility] [place] [facility] [address] [id number] [place] [address]- 1571 Apr, [facility] [place] [facility] [address] [id number] [place] [address]- 2195 Apr, [facility] [place] [facility] [address] [id number] [place] [address]- 7647 Apr, [facility] [place] [facility] [address] [id number] [place] [address]- 0999 Mar, [facility] [place] [facility] [address] [id number] [place] [address]- 6600 Mar, [facility] [place] [facility] [address] [id number] [place] [address]- 0298 Mar, [facility] [place] [facility] [address] [id number] [place] [address]- 6553 Mar, [facility] [place] [facility] [address] [id number] [place] [address]- 5505 Mar, [facility] [place] [facility] [address] [id number] [place] [address]- 7479 Feb, [facility] [place] [facility] [address] [id number] [place] [address]- 8920 Feb, [facility] [place] [facility] [address] [id number] [place] [address]- 2382 Feb, [facility] [place] [facility] [address] [id number] [place] [address]- 2636 Feb, [facility] [place] [facility] [address] [id number] [place] [address]- 3956 Feb, [facility] [place] [facility] [address] [id number] [place] [address]- 9761 Feb, [facility] [place] [facility] [address] [id number] [place] [address]- 9689 Feb, [facility] [place] [facility] [address] [id number] [place] [address]- 1754 Feb, [facility] [place] [facility] [address] [id number], [place] [address]- 2413 Feb, [facility] [place] [facility] [address] [id number] 8551 Feb, [facility] [place] [facility] [address] [id number], [place] [address]- 2612 Feb, [facility] [place] [facility] [address] [id number] 9501 Feb, [facility] [place] [facility] [address] [id number] [place] [address]- 3622 07 Feb, 2013 [facility] [place] [facility] [address] [id number] [place] [address]- 8030 Feb, [facility] [place] [facility] [address] [id number] [place] [address]- 0839 Feb, 2013 [facility] [place] [facility] [address] [id number] [place] [address]- 4180 Feb, [facility] [place] [facility] [address] [id number] [place] [address]- 3537 Jan, 2013 [facility] [place] [facility] [address] [id number] [place] [address]- 2198 23 Jan, 2013 [facility] [place] [facility] [address] [id number] [place] [address]- 9053 20 Jan, 2014 [facility] [place] [facility] [address] [id number] [place] [address]- 5923 19 Jan, 2013 [facility] [place] [facility] [address] [id number] [place] [address]- 5928 11 Jan, 2014 [facility] [place] [facility] [address] [id number] [place] [address]- 2307 Jan, [facility] [place] [facility] [address] [id number] [place] [address]- 4544 Jan, [facility] [place] [facility] [address] [id number] [place] [address]- 8520 Jan, 2013 [facility] [place] [facility] [address] [id number] [place] [address]- 2377 Dec, [facility] [place] [facility] [address] [id number] [place] [address]- 3276 Dec, [facility] [place] [facility] [address] [id number] [place] [address]- 4770 Nov, [facility] [place] [facility] [address] [id number] [place] [address]- 7474 Nov, [facility] [place] [facility] [address] [id number] [place] [address]- 6150 Nov, [facility] [place] [facility] [address] [id number] [place] [address]- 8310 Nov, [facility] [place] [facility] [address] [id number] [place] [address]- 3434 Nov, [facility] [place] [facility] [address] [id number] [place] [address]- 7858 Nov, [facility] [place] [facility] [address] [id number] [place] [address]- 9605 Nov, [facility] [place] [facility] [address] [id number] [place] [address]- 4755 Nov, [facility] [place] [facility] [address] [id number] [place] [address]- 1201 Nov, [facility] [place] [facility] [address] [id number] [place] [address]- 0699 Oct, [facility] [place] [facility] [address] [id number] [place] [address]- 0691 Oct, [facility] [place] [facility] [address] [id number] [place] [address]- 1874 Oct, [facility] [place] [facility] [address] [id number] [place] [address]- 3075 Oct, [facility] [place] [facility] [address] [id number] [place] [address]- 3267 Oct, [facility] [place] [facility] [address] [id number] [place] [address]- 7400 Oct, [facility] [place] [facility] [address] [id number] [place] [address]- 9635 September, [facility] [place] [facility] [address] [id number] [place] [address]- 1935 September, [facility] [place] [facility] [address] [id number] [place] [address]- 7055 September, [facility] [address] [id number] [place] 8864 September, [facility] [address] [id number] [place] [address]- 4972 September, [facility] [address] [id number] [place] [address]- 4091 September, [facility] [address] [id number] [place] [address]- 6912 September, [facility] [address] [id number] [place] 0216 September, [facility] [address] [id number] [place] [address]- 1266 September, [facility] [address] [id number] [place] [address]- 9537 September, [facility] [address] [id number] [place] [address]- 8016 September, [facility] [address] [id number] [place] [address]- 5288 September, [facility] [address] [id number] [place] [address]- 8361 September, [facility] [address] [id number] [place] [address]- 9783 September, [facility] [address] [id number] [place] [address]- 6881 September, [facility] [place] [facility] [address] [id number] [place] 4002 September, [facility] [place] [facility] [address] [id number] [place] 1015 September, [facility] [address] [id number] [place] [address]- 9832 September, [facility] [place] [facility] [address] [id number] [place] [address]- 5464 September, [facility] [place] [facility] [address] [id number] [place] [address]- 5443 September, [facility] [place] [facility] [address] [id number] [place] [address]- 3866 Aug, [facility] [place] [facility] [address] [id number] [place] [address]- 5409 Aug, [facility] [place] [facility] [address] [id number] [place] [address]- 5944 Aug, [facility] [place] [facility] [address] [id number] [place] [address]- 8322 Aug, [facility] [place] [facility] [address] [id number] [place] [address]- 9539 Aug, [facility] [place] [facility] [address] [id number] [place] [address]- 6349 Aug, [facility] [place] [facility] [address] [id number] [place] [address]- 1522 Aug, [facility] [place] [facility] [address] [id number] [place] [address]- 6984 Aug, [facility] [place] [facility] [address] [id number] [place] [address]- 5413 Aug, [facility] [place] [facility] [address] [id number] [place] [address]- 0434 Aug, [facility] [place] [facility] [address] [id number] [place] [address]- 3490 Aug, [facility] [place] [facility] [address] [id number] [place] [address]- 3336 Aug, [facility] [place] [facility] [address] [id number] [place] [address]- 6106 Aug, [facility] [place] [facility] [address] [id number] [place] [address]- 4875 Aug, [facility] [place] [facility] [address] [id number] [place] [address]- 0056 Aug, [facility] [place] [facility] [address] [id number] [place] [address]- 0276 Jul, [facility] [place] [facility] [address] [id number] [place] [address]- 9903 Jul, [facility] [place] [facility] [address] [id number] [place] [address]- 3240 Jul, [facility] [place] [facility] [address] [id number] [place] [address]- 6886 Jul, [facility] [place] [facility] [address] [id number] [place] [address]- 5168 Jul, [facility] [place] [facility] [address] [id number] [place] [address]- 0269 Jul, [facility] [place] [facility] [address] [id number] [place] [address]- 8421 Jul, [facility] [place] [facility] [address] [id number] [place] [address]- 4348 Jul, [facility] [place] [facility] [address] [id number] [place] [address] Jul, [facility] [place] [facility] [address] [id number] [place] [address]69 Jul, [facility] [place] [facility] [address] [id number] [place] [address] Jul, [facility] [place] [facility] [address] [id number] [place] [address] Jul, [facility] [place] [facility] [address] [id number] [place] [address] Jul, [facility] [place] [facility] [address] [id number] [place] [address] Jul, [facility] [place] [facility] [address] [id number] [place] [address] Jul, [facility] [place] [facility] [address] [id number] [place] [address] Jun, [facility] [place] [facility] [address] [id number] [place] [address] Jun, [facility] [place] [facility] [address] [id number] [place] [address]- [address] Jun, [facility] [place] [facility] [address] [id number] [place] [address]- [address] Jun, [facility] [place] [facility] [address] [id number] [place] [address]- [address] Jun, [facility] [place] [facility] [address] [id number] [place] [address]- [address] Jun, [facility] [place] [facility] [address] [id number] [place] [address]93 May, [facility] [place] [facility] [address] [id number] [place] [address]14 May, [facility] [place] [facility] [address] [id number] [place] [address]- [address] May, [facility] [address] [id number] [place] [address] May, [facility] [place] [facility] [address] [id number] [place] [address]- [address] May, [facility] [place] [facility] [address] [id number] [place] [address]- 9164 May, [facility] [place] [facility] [address] [id number] [place] [address]- [address]398 May, [facility] [place] [facility] [address] [id number] [place] [address]- 7962 May, [facility] [place] [facility] [address] [id number] [place] [address]- [address] May, [facility] [address] [id number] [place] [address]- [address]328 May, [facility] [place] [facility] [address] [id number] [place] [address]- 8276 May, [facility] [place] [facility] [address] [id number] [place] [address]- 9661 May, [facility] [place] [facility] [address] [id number] [place] [address]- 7316 May, [facility] [place] [facility] [address] [id number] [place] [address]- 8842 May, [facility] [place] [facility] [address] [id number] [place] [address]- [address] May, [facility] [place] [facility] [address] [id number] [place] [address]- 97[address] Apr, [facility] [place] [facility] [address] [id number] [place] [address]- [address] Apr, [facility] [place] [facility] [address] [id number] [place] [address]- 118[address] Apr, [facility] [place] [facility] [address] [id number] [place] [address]- 6860 Apr, [facility] [place] [facility] [address] [id number] [place] [address]- [address] Apr, [facility] [place] [facility] [address] [id number] [place] [address]- [address]951 Apr, [facility] [place] [facility] [address] [id number] [place] [address]- 8224 Apr, [facility] [place] [facility] [address] [id number] [place] [address]- 45[address] Apr, [facility] [place] [facility] [address] [id number] [place] [address]- [address]294 Apr, [facility] [place] [facility] [address] [id number] [place] [address]- [address]482 Apr, [facility] [address] [id number] [place] [address]- [address]265 Mar, [facility] [address] [id number] [place] [address]- [address]227 Mar, [facility] [address] [id number] [place] [address]- [address] Mar, [facility] [address] [id number] [place] [address]- 27[address] Mar, [facility] [address] [id number] [place] [address]- [address]77 Mar, [facility] [address] [id number] [place] [address]- 4682 Mar, [facility] [address] [id number] [place] [address]- [address]44 Mar, [facility] [address] [id number] [place] [address]- [address] Mar, [facility] [address] [id number] [place] [address]- 9099 Mar, [facility] [address] [id number] [place] [address]- [address]99 Mar, [facility] [address] [id number] [place] [address]- 7138 Mar, [facility] [address] [id number] [place] [address]- [address]50 Mar, [facility] [place] [facility] [address] [id number] [place] [address]- 4965 Mar, [facility] [place] [facility] [address] [id number] [place] [address]- 8807 Mar, [facility] [address] [id number] [place] [address]- 3501 Mar, [facility] [place] [facility] [address] [id number] [place] [address]- [address] 18 Mar, 2013 [facility] [place] [facility] [address] [id number] [place] [address]- 9622 Mar, [facility] [place] [facility] [address] [id number] [place] [address]- 4723 Mar, [facility] [place] [facility] [address] [id number] [place] [address]- 4361 Mar, [facility] [place] [facility] [address] [id number] [place] [address]- 5071 Mar, [facility] [place] [facility] [address] [id number] [place] [address]- [address] Mar, [facility] [place] [facility] [address] [id number] [place] [address]- 7353 Mar, [facility] [place] [facility] [address] [id number], [place] [address]12 Mar, [facility] [place] [facility] [address] [id number], [place] [address]- [address] Feb, [facility] [facility] [address] [id number], [place] [address]- 98[address] Feb, [facility] [address] [id number], [place] [address]- [address] Feb, [facility] [place] [facility] [address] [id number], [place] [address]- [address]99 16 Feb, 2013 [facility] [address] [id number], [place] [address]- [address] 15 Feb, 2013 [facility] [address] [id number], [place] [address]- 1213 Feb, [facility] [address] [facility] [id number], [place] [address] Feb, [facility] [place] [facility] [address] [id number], [place] [address] Feb, [facility] [address] [id number] [place] [address] 2418 Feb, [facility] [place] [facility] [address] [id number] [place] [address] 8816 Feb, [facility] [place] [facility] [address] [id number] [place] [address]- 8465 30 Jan, 2013 [facility] [place] [facility] [address] [id number] [place] [address]- 2554 26 Jan, 2013 [facility] [place] [facility] [address] [id number] [place] [address]- 7319 24 Jan, 2013 [facility] [place] [facility] [address] [id number] [place] [address]- 1093 23 Jan, 2013 [facility] [place] [facility] [address] [id number] [place] [address]- 8758 17 Jan, 2013 [facility] [place] [facility] [address] [id number] [place] [address]- 8752 Dec, [facility] [place] [facility] [address] [id number] [place] [address]- 6679 Dec, [facility] [place] [facility] [address] [id number] [place] [address]- 9389 Dec, [facility] [place] [facility] [address] [id number] [place] [address]- 7848 15 Dec, 2012 [facility] [place] [facility] [address] [id number] [place] [address]- 7638 14 Dec, 2012 [facility] [place] [facility] [address] [id number] [place] [address]- 5646 Dec, [facility] [place] [facility] [address] [id number] [place] [address]- 0910 Dec, [facility] [place] [facility] [address] [id number] [place] [address]- 5132 Nov, [facility] [place] [facility] [address] [id number] [place] [address]- 2546 16 Nov, 2012 [facility] [address] [id number] [place] [address]- 7906 15 Nov, 2012 [facility] [place] [facility] [address] [id number] [place] [address]- 2546 05 Nov, 2012 [facility] [address] [id number] [place] [address]- 2546 Nov, [facility] [place] [facility] [address] [id number] [place] [address]- 8836 Oct, [facility] [address] [id number] [place] [address]- 7306 Oct, [facility] [place] [facility] [address] [id number] [place] [address]- 2546 Oct, [facility] [address] [id number] [place] [address]- 9356 September, [facility] [address] [id number] [place] [address]- 8232 September, [facility] [address] [id number] [place] [address]- 6686 September, [facility] [address] [id number] [place] [address]- 3436 September, [facility] [place] [facility] [address] [id number] [place] [address]- 5386 September, [facility] [address] [id number] [place] [address]- 2546 September, [facility] [place] [facility] [address] [id number] [place] [address]- 2546 September, [facility] [place] [facility] [address] [id number] [place] [address]- 2546 Aug, [facility] [place] [facility] [address] [id number] [place] [address]- 7145 23 Aug, 2012 [facility] [place] [facility] [address] [id number] [place] [address]- 3865 11 Aug, 2012 [facility] [place] [facility] [address] [id number] [place] [address]- 5012 29 Jul, 2012 [facility] [place] [facility] [address] [id number] [place] [address]- 5763 27 Jul, 2012 [facility] [place] [facility] [address] [id number] [place] [address]- 7897 26 Jul, 2012 [facility] [place] [facility] [address] [id number] [place] [address]- 7198 20 Jul, 2012 [facility] [place] [facility] [address] [id number] [place] [address]- 2872 18 Jul, 2012 [facility] [place] [facility] [address] [facility] [id number] [place] [address]- 9790 18 Jul, 2012 [facility] [place] [facility] [address] [id number] [place] [address]- 4636 13 Jul, 2012 [facility] [place] [facility] [address] [id number] [place] [address]- 6773 28 Jun, 2012 [facility] [place] [facility] [address] [facility] [id number] [place] [address]- 7819 27 Jun, 2012 [facility] [place] [facility] [address] [facility] [id number] [place] [address]- 5826 22 Jun, 2012 [facility] [place] [facility] [address] [id number] [place] [address]- 0225 20 Jun, 2012 [facility] [place] [facility] [address] [id number] [place] [address]- 9061 15 Jun, 2012 [facility] [place] [facility] [address] [id number] [place] [address]- 5661 15 Jun, 2012 [facility] [place] [facility] [address] [facility] [id number] [place] [address]- 5934 13 Jun, 2012 [facility] [place] [facility] [address] [id number] [place] [address]- 8246 Jun, [facility] [address] [id number] [place] [address]- 3406 Jun, [facility] [place] [facility] [address] [id number] [place] [address]- 2546 Jun, [facility] [address] [id number] [place] [address]- 3966 May, [facility] [place] [facility] [address] [id number] [place] [address] 2547 May, [facility] [address] [id number] [place] [address]- 6106 May, [facility] [address] [id number] [place] [address]- 6175 May, [facility] [address] [id number] [place] [address]- 8997 May, [facility] [address] [id number] [place] [address]- 4770 May, [facility] [address] [id number] [place] [address]- 5053 31 Apr, 2012 [facility] [address] [id number] [place] [address] 2546 31 Apr, 2012 [facility] [address] [id number] [place] [address] 2546 Apr, [facility] [place] [facility] [address] [id number] [place] [address] 2540 28 Apr, 2012 [facility] [place] [facility] [address] [id number] [place] [address] 2546 26 Apr, 2012 [facility] [place] [facility] [address] [id number] [place] [address]- 2546 20 Apr, 2012 [facility] [place] [facility] [address] [id number] [place] [address]- 8782 Apr, [facility] [place] [facility] [address] [id number] [place] [address]- 2531 Mar, [facility] [place] [facility] [address] [id number] [place] [address]- 7654 Mar, [facility] [place] [facility] [address] [facility] [id number] [place] [address]- 3069 Mar, [facility] [place] [facility] [address] [id number] [place] [address]- 2152 Mar, [facility] [place] [facility] [address] [id number] [place] [address]- 7613 Mar, [facility] [place] [facility] [address] [id number], [place] [address]- 2733 Mar, [facility] [place] [facility] [address] [id number] [place] [address]- 1082 Mar, [facility] [place] [facility] [address] [id number], [place] [address]- 3572 Mar, [facility] [place] [facility] [address] [id number], [place] [address]- 2416 Mar, [facility] [place] [facility] [address] [id number], [place] [address]- 3226 Mar, [facility] [place] [facility] [address] [id number], [place] [address]- 9106 Mar, [facility] [place] [facility] [address] [id number], [place] [address]- 8347 Mar, [facility] [place] [facility] [address] [id number], [place] [address]- 9307 Mar, [facility] [place] [facility] [address] [facility] [id number], [place] [address]- 7208 Mar, [facility] [place] [facility] [address] [facility] [id number], [place] [address]- 3919 Mar, [facility] [place] [facility] [address] [id number] [place] [address]- 0116 Mar, [facility] [place] [facility] [address] [id number] [place] [address]- 4239 Mar, [facility] [place] [facility] [address] [id number] [place] [address]- 1745 Feb, [facility] [place] [facility] [address] [id number] [place] [address]- 0090 Feb, 2011 [facility] [place] [facility] [address] [id number] [place] [address]- 6162 Feb, [facility] [place] [facility] [address] [id number] [place] [address]- 6010 Feb, [facility] [place] [facility] [address] [id number] [place] [address]- 4536 Feb, [facility] [place] [facility] [address] [id number] [place] [address]- 3964 Feb, [facility] [place] [facility] [address] [id number] [place] [address]- 8441 Feb, [facility] [place] [facility] [address] [id number] [place] [address]- 0329 Feb, [facility] [place] [facility] [address] [facility] [id number] [place] [address]- 8761 Feb, [facility] [place] [facility] [address] [id number] [place] [address]- 7153 Feb, [facility] [place] [facility] [address] [id number] [place] [address]- 4125 Feb, [facility] [place] [facility] [address] [id number] [place] [address]- 3052 27 Jan, 2011 [facility] [place] [facility] [address] [id number] [place] [address]- 5679 25 Jan, 2012 [facility] [place] [facility] [address] [id number] [place] [address]- 2660 13 Jan, 2012 [facility] [place] [facility] [address] [id number] [place] [address]- 4057 12 Jan, 2012 [facility] [place] [facility] [address] [id number] [place] [address]- 5348 Jan, [facility] [place] [facility] [address] [id number] [place] [address]- 7401 Dec, [facility] [place] [facility] [address] [id number] [place] [address]- 5145 Dec, [facility] [place] [facility] [address] [id number] [place] [address]- 6669 Dec, [facility] [place] [facility] [address] [id number] [place] [address]- 5147 Dec, [facility] [place] [facility] [address] [id number] [place] [address]- 4735 Dec, [facility] [place] [facility] [address] [id number] [place] [address]- 3065 Dec, [facility] [place] [facility] [address] [id number] [place] [address]- 8821 Dec, [facility] [place] [facility] [address] [id number] [place] [address]- 8906 Dec, [facility] [place] [facility] [address] [id number] [place] [address]- 4311 Nov, [facility] [place] [facility] [address] [id number] [place] [address]- 5381 Nov, [facility] [place] [facility] [address] [id number] [place] [address]- 5713 Nov, [facility] [place] [facility] [address] [id number] [place] [address]- 9555 Nov, [facility] [place] [facility] [address] [id number] [place] [address]- 2272 Nov, [facility] [place] [facility] [address] [id number] [place] [address]- 4391 Oct, [facility] [address] [id number] [place] [address]41 Oct, [facility] [place] [facility] [address] [id number] [place] [address]- 9451 September, [facility] [address] [id number] [place] [address]- 5646 September, [facility] [place] [facility] [address] [id number] [place] [address]- 5831 September, [facility] [address] [id number] [place] [address]- 9323 September, [facility] [place] [facility] [address] [id number] [place] [address]- 2601 September, [facility] [address] [id number] [place] [address]- 2604 September, [facility] [place] [facility] [address] [id number] [place] [address]- 1492 September, [facility] [place] [facility] [address] [id number] [place] [address]- 7797 September, [facility] [place] [facility] [address] [id number] [place] [address]- 6804 September, [facility] [place] [facility] [address] [id number] [place] [address]- 3901 September, [facility] [place] [facility] [address] [id number] [place] [address]- 7472 September, [facility] [place] [facility] [address] [id number] [place] [address]- 6449 September, [facility] [place] [facility] [address] [id number] [place] [address]- 1108 September, [facility] [place] [facility] [address] [id number] [place] [address]- 6647 September, [facility] [place] [facility] [address] [id number] [place] [address]- 4920 24 Aug, 2011 [facility] [address] [id number] [place] [address]- 6518 20 Aug, 2011 [facility] [address] [id number] [place] [address]- 8716 13 Aug, 2011 [facility] [address] [id number] [place] [address]- 5518 11 Aug, 2011 [facility] [address] [id number] [place] [address]- 1288 23 Jul, 2011 [facility] [address] [id number] [place] [address]- 2234 13 Jul, 2011 [facility] [address] [id number] [place] [address]- 0485 13 Jul, 2011 [facility] [address] [id number] [place] [address]- 1794 28 Jun, [address] [facility] [address] [id number] 26 Jun, 2011 [facility] [address] [id number] [place] [address]- 7877 13 Jun, 2011 [facility] [address] [id number] [place] [address]- 1559 10 Jun, 2011 [facility] [address] [id number] [place] [address]- 6106 07 Jun, 2011 [facility] [address] [id number] [place] [address]- 8366 07 Jun, 2011 [facility] [place] [facility] [address] [id number] [place] [address]- 3276 03 Jun, 2011 [facility] [place] [facility] [address] [id number] [place] [address]- 5996 02 Jun, 2011 [facility] [place] [facility] [address] [id number] [place] [address]- 0525 31 May, 2011 [facility] [address] [id number] [place] [address]- 0580 30 May, 2011 [facility] [address] [id number] [place] [address]- 3683 May, [facility] [address] [id number] [place] [address]- 3699 May, [facility] [address] [id number] [place] [address]- 8930 May, [facility] [address] [id number] [place] [address]- 4214 May, [facility] [address] [id number] [place] [address]- 1320 May, [facility] [address] [id number] [place] [address]- 2773 May, [facility] [place] [facility] [address] [id number] [place] [address]- 3846 May, [facility] [address] [id number] [place] [address]- 9306 May, [facility] [place] [facility] [address] [id number] [place] [address]- 8714 May, [facility] [address] [id number], [place] [address]- 9241 May, [facility] [place] [facility] [address] [id number], [place] [address]- 1437 May, [facility] [place] [facility] [address] [id number] [place] [address]- 3354 May, [facility] [place] [facility] [address] [id number] [place] [address]- 3424 30 Apr, 2011 [facility] [place] [facility] [address] [id number] [place] [address]- 2988 16 Apr, 2011 [facility] [place] [facility] [address] [id number] [place] [address]- 1314 05 Apr, 2011 [facility] [place] [facility] [address] [id number] [place] [address]- 5856 17 Mar, 2011 [facility] [place] [facility] [address] [id number] [place] [address] 2546 Mar, [facility] [place] [facility] [address] [id number] [place] [address]- 9206 31 Feb, 2011 [facility] [place] [facility] [address] [id number] [place] [address] 2546 26 Feb, 2011 [facility] [place] [facility] [address] [id number] [place] [address]- 0379 Feb, [facility] [place] [facility] [address] [id number] [place] [address]- 0375 20 Feb, 2011 [facility] [place] [facility] [address] [id number] [place] [address]- 9816 13 Feb, 2011 [facility] [place] [facility] [address] [id number] [place] [address]- 2121 28 Apr, 2010 [facility] [place] [facility] [address] [id number] [place] [address] 2546 22 Apr, 2010 [facility] [place] [facility] [address] [facility] [id number] [place] [address] 254 16 Apr, 2010 [facility] [place] [facility] [address] [id number] [place] [address] 2546 15 Apr, 2010 [facility] [place] [facility] [address] [id number] [place] [address] 2546 15 Apr, 2010 [facility] [place] [facility] [address] [id number] [place] [address] 2546 Apr, [facility] [place] [facility] [address] [id number] [place] [address] 2546 24 Mar, 2010 [facility] [place] [facility] [address] [id number] [place] [address] 2542 17 Mar, 2010 [facility] [id number], [place] [address]- 1114 17 Mar, 2010 [facility] [id number], [place] [address]- 1126 28 Feb, 2010 [facility] [id number], [place] [address]- 6190 Feb, [facility] [id number] [place] [address]- 5914 Feb, [facility] [id number], [place] [address]- 7411 Feb, [facility] [id number] [place] [address] 48[address]- 4629 Dec, [facility] [id number], [place] [address]- 2499 Dec, [facility] [id number] [place] [address]- 8818 Oct, [facility] [id number] [address] Mar, [facility] [id number] [address] Mar, [facility] [id number] [address] September, IMMUNIZATIONS No Known Immunizations SOCIAL HISTORY Never Assessed [place] [place] VITAL SIGNS MEDICATIONS Unknown [...]
--- OUTSIDE RECORDS SUMMARY | 2018-09-19 08:56 | XMS REPORT ---
Author Author Migration, Doctor Organization [facility] Address Unknown Phone Unavailable Care Team Providers Care General Assignment Reporter Name Role Phone Migration, Doctor Unavailable Unavailable PROBLEMS Type Condition ICD9-CM Code [id number] Code Onset Dates Condition Status SNOMED Code Problem Hypokalemia E87.6 Active 154602045 Problem Generalized anxiety disorder F41.1 Active 75778964 Problem Pain in right knee M25.561 Active 45119632 Problem Right low back pain, with sciatica presence unspecified M54.5 Active 994142133 Problem Right foot pain M79.671 Active 07706300 Problem UTI symptoms R39.9 Active 59159884 Problem Essential hypertension I10 Active 11953479 Problem Gastroesophageal reflux disease without esophagitis K21.9 Active 524266056 Problem Weight decrease R63.4 Active 223580434 Problem Depression, unspecified depression type F32.9 Active 40632613 Problem Right upper quadrant abdominal pain R10.11 Active 872715067 Problem Tobacco abuse Z72.0 Active 02254976 Problem Insomnia, unspecified type G47.00 Active 703796505 Problem Weight loss R63.4 Active 552607725 Problem Post-traumatic stress disorder, chronic F43.12 Active 65641456 Problem Pulmonary emphysema, unspecified emphysema type J43.9 Active 97208553 Problem Neuropathy G62.9 Active 529348216 Problem Anxiety F41.9 Active 08647286 Problem Other emphysema J43.8 Active 85439427 Problem Other chronic pain G89.29 Active 05458662 Problem Chronic pain G89.29 Active 56732806 Problem Opioid use disorder, moderate, dependence F11.20 Active 93517181 Problem Back pain M54.9 Active 754526708 Problem Bone pain M89.8X9 Active 64568390 Problem Panic attacks F41.0 Active 315220883 Problem Kidney stones N20.0 Active 67285881 Problem Renal calculus, right N20.0 Active 33052468 Problem Generalized abdominal pain R10.84 Active 799206811 ALLERGIES No Information ENCOUNTERS Encounter Location Date Diagnosis [facility] [id number] [address] Feb, [facility] [id number] [place] [address] 64832- 9773 Dec, [facility] [id number] [place] [address] 94164- 7003 Dec, [facility] [id number] [place] [address] 63340- 5958 Dec, Medicare welcome exam Z00.00 [facility] [id number] [place] [address] 98211- 0144 17 Nov, 2017 Opioid use disorder, moderate, dependence F11.20 [facility] [id number] [place] [address] 01907- 1525 16 Nov, 2017 Pelvic pain R10.2 ; Acute pyelonephritis N10 and Essential hypertension I10 [facility] [id number] [place] [address] 71782- 2158 28 Oct, 2017 Medicare welcome exam Z00.00 [facility] [id number] [place] [address] 59564- 5569 Oct, Gross hematuria R31.0 ; Urinary tract infection without hematuria, site unspecified N39.0 and Weakness R53.1 [facility] [id number] [place] [address] 97908- 8941 Oct, [facility] [id number] [place] [address] 90952- 1371 Oct, [facility] [id number] [place] [address] 13684- 0278 Oct, Medicare welcome exam Z00.00 [facility] [id number] [place] [address] 73208- 9086 September, Back pain M54.9 and Right anterior knee pain M25.561 [facility] [id number] [place] [address] 12585- 2210 September, [facility] [address] [address] 4723 September, [facility] [id number] [place] [address] 98536- 3349 September, Essential hypertension I10 [facility] [id number] [place] [address] 71131- 7069 September, [facility] [id number] [place] [address] 31947- 4809 September, RLQ abdominal pain R10.31 ; Low back pain M54.5 and Other chronic pain G89.29 [facility] [id number] [place] [address] 95363- 2148 Aug, Medicare welcome exam Z00.00 [facility] [id number] [place] [address] 61416- 8822 Aug, [facility] [id number] [place] [address] 35696- 0468 Aug, Acute pyelonephritis N10 and Medicare welcome exam Z00.00 [facility] [id number] [place] [address] 35803 -2425 Aug, Dysuria R30.0 and Acute pyelonephritis N10 [facility] [id number] [address]- 4983 Aug, [facility] [id number] [place] [address] 94498- 2622 Aug, [facility] [id number] [place] [address] 38767- 1757 Aug, [facility] [id number] [place] [address] 81378- 6471 Aug, [facility] [id number] [address]- 1051 Jul, [facility] [id number] [place] [address] 48141- 1635 Jul, Renal calculus, right N20.0 and Medicare welcome exam Z00.00 [facility] [id number] [place] [address] 33612 -8637 Jul, Dysuria R30.0 and Renal calculus, right N20.0 [facility] [id number] [place] [address] 86388- 5085 Jul, Medicare welcome exam Z00.00 [facility] [id number] [place] [address] 50209- 1273 Jun, Gastroesophageal reflux disease without esophagitis K21.9 and Generalized abdominal pain R10.84 [facility] [id number] [place] [address] 22354- 7562 Jun, Medicare welcome exam Z00.00 [facility] [id number] [place] [address] 51644- 0968 Jun, [facility] [id number] [place] [address] 72186- 7123 Jun, Medicare welcome exam Z00.00 and Encounter for screening mammogram for malignant neoplasm of breast Z12.31 [facility] [id number] [place] [address] 33147- 7561 Jun, Chronic pain G89.29 [facility] [id number] [place] [address] 81586- 3335 May, [facility] [id number] [place] [address] 65465- 3154 May, Pelvic pain R10.2 [facility] [id number] [place] [address] 40838- 1851 May, Pelvic pain R10.2 [facility] [id number] [place] [address] 34834 -3929 May, Renal calculus, right N20.0 [facility] [id number] [place] [address] 26165- 3760 May, Hematuria, unspecified type R31.9 and Nephrolithiasis N20.0 [facility] [id number] [place] [address] 52020 -6138 May, Dysuria R30.0 and Nephrolithiasis N20.0 [facility] [id number] [place] [address] 90361- 6434 May, [facility] [id number] [place] [address] 55317 -3334 May, Abdominal pain R10.9 and Kidney stone N20.0 [facility] [id number] [place] [address] 50234- 7470 May, [facility] [id number] [place] [address] 79153- 9831 May, Chronic pain G89.29 and Panic attacks F41.0 [facility] [id number] [place] [address] 89379- 6104 May, Urinary tract infection without hematuria, site unspecified N39.0 [facility] [id number] [place] [address] 19602- 1078 Apr, Right lower quadrant abdominal pain R10.31 and Abnormal serum lipase level R74.8 [facility] [id number] [place] [address] 41947- 6946 Apr, Recurrent urinary tract infection N39.0 [facility] [id number] [place] [address] 87584- 8414 Apr, UTI symptoms R39.9 ; Recurrent urinary tract infection N39.0 and Pelvic pain R10.2 [facility] [id number] [place] [address] 04467- 0376 Apr, Chronic pain G89.29 and Panic attacks F41.0 [facility] [id number] [place] [address] 33553- 4506 Apr, Dysuria R30.0 [facility] [id number] [place] [address] 40995- 4392 Apr, [facility] [id number] [place] [address] 57188- 3427 Apr, Dysuria R30.0 and Urinary tract infection without hematuria , site unspecified N39.0 [facility] [id number] [place] [address] 97048- 4124 Mar, UTI symptoms R39.9 [facility] [id number] [place] [address] 17096- 9128 Mar, [facility] [id number] [place] [address] 47903- 0528 Mar, Panic attacks F41.0 and Chronic pain G89.29 [facility] [address] 57273- 2991 Mar, [facility] [id number] [place] [address] 82343- 3228 Mar, Dysuria R30.0 [facility] [id number] [place] [address] 66328- 4293 Mar, Dysuria R30.0 [facility] [id number] [place] [address] 77040- 2125 Feb, Chronic pain G89.29 ; Shortness of breath R06.02 ; Weight loss R63.4 ; Encounter for immunization Z23 ; Bone pain M89.8X9 ; Right anterior knee pain M25.561 and Cough R05 [facility] [id number] [place] [address] 03737- 9759 Feb, Shortness of breath R06.02 [facility] [id number] [place] [address] 80567- 3591 Feb, [facility] [id number] [place] [address] 43896- 5921 Feb, Panic attacks F41.0 and Chronic pain G89.29 [facility] [address] 27343- 7155 Feb, [facility] [address] 15752- 4249 04 Feb, 2017 Panic attacks F41.0 ; Shortness of breath R06.02 and Encounter for immunization Z23 [facility] [address] 05749- 9865 Jan, [facility] [address] 72377- 4046 15 Jan, 2017 Anxiety F41.9 and Chronic pain G89.29 [facility] [address] 69246- 3297 Dec, Anxiety F41.9 and Chronic pain G89.29 [facility] [address] 66780- 8966 Nov, Chronic pain G89.29 [facility] [address] 12262- 6506 Nov, Anxiety F41.9 [facility] [address] 46425- 5230 Nov, Chronic pain G89.29 ; Essential hypertension I10 and Other emphysema J43.8 [facility] [id number] [place] [address] 80787- 9297 Oct, Anxiety F41.9 [facility] [address] 14716- 5560 Oct, [facility] [address] 07702- 3192 Oct, Chronic pain G89.29 [facility] [address] 87560- 5786 September, Recurrent UTI N39.0 ; Neuropathy G62.9 and Anxiety F41.9 [facility] [id number] [place] [address] 09016- 6552 September, [facility] [id number] [place] [address] 96270- 7887 September, Chronic pain G89.29 [facility] [id number] [place] [address] 43740- 8530 September, [facility] [address] 34089- 7520 Aug, Post-traumatic stress disorder, chronic F43.12 ; Chronic urinary tract infection N39.0 ; Gastroesophageal reflux disease without esophagitis K21.9 ; Chronic pain G89.29 ; Essential hypertension I10 and Tobacco abuse Z72.0 [facility] [id number] [place] [address] 35227 -9436 Aug, [facility] [address] 84470- 4841 Aug, Chronic pain G89.29 [facility] [address] 60266- 9914 Aug, Insomnia, unspecified type G47.00 [facility] [id number] [place] [address] 64932- 5765 Aug, [facility] [id number] [place] [address] 60406- 8650 Jul, Chronic pain G89.29 [facility] [id number] [place] [address] 98809- 7983 Jul, [facility] [address] 76398- 7680 Jul, [facility] [id number] [place] [address] 24985- 6186 Jul, [facility] [address] 99145- 9053 15 Jul, 2016 Recurrent UTI (urinary tract infection) N39.0 [facility] [id number] [place] [address] 62384- 8687 14 Jul, 2016 [facility] [id number] [place] [address] 38255- 7398 27 Jun, 2016 Chronic pain G89.29 [facility] [id number] [place] [address] 49474- 0055 17 Jun, 2016 [facility] [id number] [place] [address] 15896- 6471 Jun, [facility] [id number] [place] [address] 69008- 8637 May, Chronic pain G89.29 [facility] [id number] [place] [address] 79995- 8050 May, Weight loss R63.4 and Shortness of breath R06.02 [facility] [id number] [place] [address] 66279- 4306 May, Chronic pain G89.29 ; Weight loss R63.4 and Tobacco abuse Z72.0 [facility] [id number] [place] [address] 92840- 1717 May, [facility] [id number] [place] [address] 99178- 9871 May, Hypoxia R09.02 [facility] [id number] [place] [address] 63931- 3797 May, [facility] [id number] [place] [address] 22017- 9736 May, Pulmonary emphysema, unspecified emphysema type J43.9 [facility] [id number] [place] [address] 91291 -1673 May, [facility] [id number] [place] [address] 45208- 0184 May, [facility] [id number] [place] [address] 17274- 7161 May, [facility] [address] 90816- 2837 May, Chronic pain G89.29 ; Encounter for immunization Z23 ; Right anterior knee pain M25.561 and Cough R05 [facility] [address] 62241- 1406 Apr, Chronic pain G89.29 [facility] [id number] [place] [address] 95042- 6345 Apr, [facility] [address] 38604- 8920 Apr, Generalized anxiety disorder F41.1 and Depression, unspecified depression type F32.9 [facility] [address] 58849- 0741 Apr, Chronic pain G89.29 ; Hypokalemia E87.6 and Insomnia, unspecified type G47.00 [facility] [id number] [place] [address] 39155- 1047 Apr, [facility] [id number] [place] [address] 64544- 9858 Apr, Chronic pain G89.29 [facility] [id number] [place] [address] 55253- 4509 Apr, [facility] [id number] [place] [address] 17245- 4306 Mar, [facility] [id number] [place] [address] 14503- 7359 Mar, Insomnia, unspecified type G47.00 [facility] [id number] [place] [address] 50113- 9096 Mar, Chronic pain G89.29 [facility] [id number] [place] [address] 11149- 8125 Mar, [facility] [address] [address]- 2001 Feb, [facility] [address] [address]- 0770 Feb, [facility] [id number] [place] [address] 52181- 6885 Feb, [facility] [id number] [place] [address] 72555- 6642 Feb, [facility] [id number] [place] [address] 92841- 4167 Feb, [facility] [id number] [place] [address] 44696- 8325 29 Jan, 2016 [facility] [id number] [place] [address] 13843- 4961 26 Jan, 2015 [facility] [address] [address]- 9732 20 Jan, 2015 [facility] [id number] [place] [address] 53937- 1804 13 Jan, 2015 [facility] [address] [address]- 6398 12 Jan, 2016 [facility] [id number] [place] [address] 76082- 4196 07 Jan, 2015 Chronic pain G89.29 [facility] [address] [address]- 3042 Jan, 2015 Chronic pain G89.29 and Fibromyalgia M79.7 [facility] [address] [address]- 7036 Dec, Depression, unspecified depression type F32.9 and Generalized anxiety disorder 300.02 [facility] [id number] [address]- 6922 Dec, Dysthymia F34.1 ; Insomnia, unspecified type G47.00 and Chronic pain G89.29 [facility] [address] [facility] [id number] [place] [address] 12680- 2114 Dec, Chronic pain G89.29 [facility] [id number] [place] [address] 12955 2546 Dec, Insomnia, unspecified type G47.00 [facility] [address] [facility] [id number] [place] [address] 76711 2540 Dec, Fibromyalgia M79.7 and Chronic pain G89.29 [facility] [id number] [place] [address] 59436- 9906 Dec, [facility] [id number] [place] [address] 17499 2546 Dec, [facility] [id number] [place] [address] 65720- 3465 Dec, [facility] [id number] [place] [address] 31576 2546 Dec, [facility] [id number] [place] [address] 83932- 9268 Dec, Chronic pain G89.29 [facility] [id number] [place] [address] 88822 2545 Dec, [facility] [id number] [place] [address] 95376 2545 Dec, [facility] [id number] [place] [address] 31012 2546 Dec, [facility] [id number] [place] [address] 29655 2548 Dec, Chronic pain G89.29 and Dysthymia F34.1 [facility] [id number] [place] [address] 85732 2549 Nov, [facility] [id number] [place] [address] 80572- 4833 Nov, Hypokalemia E87.6 and Chronic pain G89.29 [facility] [address] 83106- 9211 Nov, Back pain M54.9 and Pain in right knee M25.561 [facility] [address] 68440- 1396 Nov, [facility] [address] 04121- 0284 Nov, Chronic pain G89.29 [facility] [address] 25564- 1768 Nov, Chronic pain G89.29 ; Weight loss R63.4 ; Bone pain M89.8X9 and Insomnia, unspecified type G47.00 [facility] [address] 02005- 0469 Nov, Chronic pain G89.29 [facility] [address] 46759- 0456 Nov, Chronic pain G89.29 [facility] [address] 53009- 1621 30 Oct, 2015 Chronic pain G89.29 [facility] [id number] [place] [address] 40668- 9880 Oct, UTI symptoms R39.9 [facility] [id number] [place] [address] 48565- 2337 27 Oct, 2015 Chronic pain G89.29 [facility] [address] 69704- 9063 20 Oct, 2015 Chronic pain G89.29 [facility] [id number] [place] [address] 21811- 6173 13 Oct, 2015 Chronic pain G89.29 [facility] [address] 21416- 9137 Oct, Right upper quadrant abdominal pain R10.11 [facility] [address] [address]- 2457 Oct, Chronic pain G89.29 [facility] [address] [address]- 4268 Oct, [facility] [id number] [place] [address] 09893- 3142 September, Chronic pain G89.29 [facility] [id number] [place] [address] 08686- 4496 September, Dysuria R30.0 and Urinary tract infection without hematuria , site unspecified N39.0 [facility] [id number] [place] [address] 31343- 3967 September, [facility] [id number] [place] [address] 85907- 7471 September, Dysuria R30.0 [facility] [id number] [place] [address] 09321- 4551 September, Chronic pain G89.29 [facility] [id number] [place] [address] 64825- 2897 September, Chronic pain G89.29 and Essential hypertension I10 [facility] [address] [address]- 3888 September, [facility] [id number] [place] [address] 93662- 5930 September, [facility] [id number] [place] [address] 19522- 3200 September, [facility] [id number] [place] [address] 74535- 0723 Aug, UTI symptoms R39.9 [facility] [address] [address]- 7541 Aug, Dysuria R30.0 [facility] [address] [address]- 6610 Aug, [facility] [id number] [place] [address] 53185- 5120 Aug, [facility] [id number] [place] [address] 14923- 3540 Aug, [facility] [id number] [place] [address] 90978- 7695 Aug, Chronic pain G89.29 [facility] [id number] [place] [address] 26385- 1317 Aug, Dysthymia F34.1 [facility] [id number] [place] [address] 39325- 5270 Aug, Conjunctivitis, unspecified conjunctivitis type, unspecified laterality H10.9 [facility] [id number] [place] [address] 55958- 6937 Jul, Chronic pain G89.29 ; Back pain M54.9 ; Tobacco abuse Z72.0 and Weight decrease R63.4 [facility] [id number] [place] [address] 01104- 6825 Jul, [facility] [id number] [place] [address] 24706- 4558 Jul, [facility] [id number] [place] [address] 94203- 2924 24 Jul, 2015 Chronic pain G89.29 [facility] [id number] [address] Jul, [facility] [id number] [place] [address] 80931- 8679 Jul, [facility] [id number] [place] [address] 75975- 8063 Jul, [facility] [id number] [place] [address] 21136- 2975 17 Jul, 2015 [facility] [id number] [address] 17 Jul, 2015 Chronic pain G89.29 [facility] [id number] [address] 16 Jul, 2015 Chronic pain G89.29 [facility] [id number] [place] [address] 19620- 5341 15 Jul, 2015 [facility] [id number] [place] [address] 43005- 7614 Jul, [facility] [id number] [place] [address] 03502- 7849 Jul, [facility] [id number] [place] [address] 20365- 5856 Jul, [facility] [id number] [place] [address] 70466- 1903 Jun, [facility] [id number] [place] [address] 73910- 5513 Jun, Depression, unspecified depression type F32.9 [facility] [id number] [place] [address] 02439- 3011 Jun, Pain in right knee M25.561 [facility] [id number] [place] [address] 22800- 1186 24 Jun, 2015 Chronic pain G89.29 ; Back pain M54.9 ; Bone pain M89.8X9 and Weight loss R63.4 [facility] [id number] [place] [address] 83994- 0936 Jun, [facility] [id number] [place] [address] 51461- 0792 May, [facility] [address] [address] May, UTI symptoms R39.9 ; Pain in right knee M25.561 ; Right low back pain, with sciatica presence unspecified M54.5 ; Right foot pain M79.671 ; Hypokalemia E87.6 and Screening, lipid Z13.220 [facility] [id number] [place] [address] 71762- 5145 May, [facility] [id number] [place] [address] 01825- 6283 May, [facility] [id number] [place] [address] 56468- 2478 Mar, [facility] [id number] [place] [address] 54083- 0929 Mar, [facility] [id number] [place] [address] 94129- 9903 Mar, Hypokalemia E87.6 [facility] [address] 7[address]- 2685 Mar, Pain in right leg M79.604 ; Encounter for immunization Z23 ; Pain in right knee M25.561 and Hypokalemia E87.6 [facility] [id number] [place] [address] 57433- 6730 Jan, [facility] [id number] [place] [address] 13747- 7484 Jan, [facility] [id number] [place] [address] 36602 254 Jan, Abdominal pain, generalized 789.07 [facility] [id number] [place] [address] 98336 2548 Jan, Abdominal pain, generalized 789.07 [facility] [id number] [place] [address] 64417- 3794 Dec, [facility] [id number] [place] [address] 08152- 8588 Dec, [facility] [address] [address]- 7306 Dec, [facility] [id number] [place] [address] 49444- 6702 Nov, Hallux valgus 735.0 and Hammertoe 735.4 [facility] [address] [address]- 2696 Nov, [facility] [id number] [place] [address] 57482- 1317 Nov, Hallux valgus 735.0 and Hammer toe 735.4 [facility] [id number] [place] [address] 09141- 1206 Oct, [facility] [id number] [place] [address] 53860- 3806 Oct, [facility] [id number] [place] [address] 50822- 6562 Oct, Pre-op evaluation V72.84 [facility] [address] [address]- 5531 Oct, [facility] [id number] [place] [address] 08376- 0853 Oct, [facility] [address] [address]- 4032 September, [facility] [address] [address] 2546 September, [facility] [id number] [address]- 2005 September, Hallux valgus (acquired) 735.0 and Other hammer toe ( acquired) 735.4 [facility] [address] [address]- 2546 Aug, [facility] [id number] [place] [address] 47608- 6888 Aug, [facility] [place] [facility] [address] [id number] [place] [address]- 8726 Jul, [facility] [place] [facility] [address] [id number] [place] [address]- 0645 Jul, [facility] [place] [facility] [address] [id number] [place] [address]- 5934 Jul, [facility] [place] [facility] [address] [id number] [place] [address]- 4115 Jul, [facility] [place] [facility] [address] [id number] [place] [address]- 0116 Jul, [facility] [place] [facility] [address] [id number] [place] [address]- 3137 Jul, [facility] [place] [facility] [address] [facility] [id number] [place] [address]- 9228 Jul, [facility] [place] [facility] [address] [id number] [place] [address]- 1444 Jul, [facility] [place] [facility] [address] [id number] [place] [address]- 5742 Jun, [facility] [place] [facility] [address] [facility] [id number] [place] [address]- 1854 Jun, [facility] [place] [facility] [address] [id number] [place] [address]- 3630 Jun, 2014 [facility] [place] [facility] [address] [id number] [place] [address]- 4027 Jun, [facility] [place] [facility] [address] [id number] [place] [address]- 5602 Jun, [facility] [place] [facility] [address] [id number] [place] [address]- 1481 Jun, [facility] [place] [facility] [address] [facility] [id number] [place] [address]- 5588 Jun, [facility] [place] [facility] [address] [id number] [place] [address]- 0730 Jun, [facility] [address] [id number] [place] [address]- 8690 Jun, [facility] [place] [facility] [address] [id number] [place] [address]- 4116 Jun, [facility] [place] [facility] [address] [id number] [place] [address]- 8036 May, [facility] [place] [facility] [address] [id number] [place] [address]- 3955 May, [facility] [place] [facility] [address] [id number] [place] [address]- 1616 May, [facility] [place] [facility] [address] [id number] [place] [address]- 6199 May, [facility] [place] [facility] [address] [id number] [place] [address]- 7955 May, [facility] [address] [id number] [place] [address]- 4672 May, [facility] [place] [facility] [address] [id number] [place] [address]- 2690 May, [facility] [place] [facility] [address] [id number] [place] [address]- 9518 May, [facility] [place] [facility] [address] [id number] [place] [address]- 6292 May, [facility] [place] [facility] [address] [id number] [place] [address]- 9242 May, [facility] [place] [facility] [address] [id number] [place] [address]- 6425 May, [facility] [place] [facility] [address] [id number] [place] [address]- 6946 May, [facility] [place] [facility] [address] [id number] [place] [address]- 4804 May, [facility] [place] [facility] [address] [id number] [place] [address]- 4022 May, [facility] [place] [facility] [address] [id number] [place] [address]- 0167 May, [facility] [place] [facility] [address] [id number] [place] [address]- 0196 May, [facility] [place] [facility] [address] [id number] [place] [address]- 0030 May, [facility] [place] [facility] [address] [id number] [place] [address]- 7230 May, [facility] [place] [facility] [address] [id number] [place] [address]- 9071 Apr, [facility] [place] [facility] [address] [id number] [place] [address]- 9599 Apr, [facility] [place] [facility] [address] [id number] [place] [address]- 0129 Apr, [facility] [place] [facility] [address] [id number] [place] [address]- 4976 Apr, [facility] [place] [facility] [address] [id number] [place] [address]- 3412 Apr, [facility] [place] [facility] [address] [id number] [place] [address]- 6300 Apr, [facility] [place] [facility] [address] [id number] [place] [address]- 7746 Apr, [facility] [place] [facility] [address] [id number] [place] [address]- 9231 Apr, [facility] [place] [facility] [address] [id number] [place] [address]- 3574 Apr, [facility] [place] [facility] [address] [id number] [place] [address]- 6399 Mar, [facility] [place] [facility] [address] [id number] [place] [address]- 8291 Mar, [facility] [place] [facility] [address] [id number] [place] [address]- 5403 Mar, [facility] [place] [facility] [address] [id number] [place] [address]- 3493 Mar, [facility] [place] [facility] [address] [id number] [place] [address]- 4700 Mar, [facility] [place] [facility] [address] [id number] [place] [address]- 3361 Feb, [facility] [place] [facility] [address] [id number] [place] [address]- 2038 Feb, [facility] [place] [facility] [address] [id number] [place] [address]- 2602 Feb, [facility] [place] [facility] [address] [id number] [place] [address]- 1743 Feb, [facility] [place] [facility] [address] [id number] [place] [address]- 9317 Feb, [facility] [place] [facility] [address] [id number] [place] [address]- 7349 Feb, [facility] [place] [facility] [address] [id number] [place] [address]- 8232 Feb, [facility] [place] [facility] [address] [id number] [place] [address]- 2337 Feb, [facility] [place] [facility] [address] [id number] [address]- 7607 Feb, [facility] [place] [facility] [address] [id number] 6809 Feb, [facility] [place] [facility] [address] [id number] [address]- 3903 Feb, [facility] [place] [facility] [address] [id number] 2855 Feb, [facility] [place] [facility] [address] [id number] [place] [address]- 2726 07 Feb, 2013 [facility] [place] [facility] [address] [id number] [place] [address]- 1119 Feb, [facility] [place] [facility] [address] [id number] [place] [address]- 9440 Feb, 2013 [facility] [place] [facility] [address] [id number] [place] [address]- 3878 Feb, [facility] [place] [facility] [address] [id number] [place] [address]- 6880 Jan, 2013 [facility] [place] [facility] [address] [id number] [place] [address]- 7490 23 Jan, 2013 [facility] [place] [facility] [address] [id number] [place] [address]- 1642 20 Jan, 2014 [facility] [place] [facility] [address] [id number] [place] [address]- 0739 19 Jan, 2013 [facility] [place] [facility] [address] [id number] [place] [address]- 2469 11 Jan, 2014 [facility] [place] [facility] [address] [id number] [place] [address]- 2952 Jan, [facility] [place] [facility] [address] [id number] [place] [address]- 7607 Jan, [facility] [place] [facility] [address] [id number] [place] [address]- 0142 Jan, 2013 [facility] [place] [facility] [address] [id number] [place] [address]- 7434 Dec, [facility] [place] [facility] [address] [id number] [place] [address]- 4276 Dec, [facility] [place] [facility] [address] [id number] [place] [address]- 5255 Nov, [facility] [place] [facility] [address] [id number] [place] [address]- 5371 Nov, [facility] [place] [facility] [address] [id number] [place] [address]- 9193 Nov, [facility] [place] [facility] [address] [id number] [place] [address]- 5344 Nov, [facility] [place] [facility] [address] [id number] [place] [address]- 3254 Nov, [facility] [place] [facility] [address] [id number] [place] [address]- 3695 Nov, [facility] [place] [facility] [address] [id number] [place] [address]- 7113 Nov, [facility] [place] [facility] [address] [id number] [place] [address]- 4444 Nov, [facility] [place] [facility] [address] [id number] [place] [address]- 8382 Nov, [facility] [place] [facility] [address] [id number] [place] [address]- 3063 Oct, [facility] [place] [facility] [address] [id number] [place] [address]- 6060 Oct, [facility] [place] [facility] [address] [id number] [place] [address]- 2643 Oct, [facility] [place] [facility] [address] [id number] [place] [address]- 5722 Oct, [facility] [place] [facility] [address] [id number] [place] [address]- 9661 Oct, [facility] [place] [facility] [address] [id number] [place] [address]- 5604 Oct, [facility] [place] [facility] [address] [id number] [place] [address]- 8790 September, [facility] [place] [facility] [address] [id number] [place] [address]- 8606 September, [facility] [place] [facility] [address] [id number] [place] [address]- 1980 September, [facility] [address] [id number] [place] 0324 September, [facility] [address] [id number] [place] [address]- 1525 September, [facility] [address] [id number] [place] [address]- 9370 September, [facility] [address] [id number] [place] [address]- 1524 September, [facility] [address] [id number] [place] 0377 September, [facility] [address] [id number] [place] [address]- 2893 September, [facility] [address] [id number] [place] [address]- 3638 September, [facility] [address] [id number] [place] [address]- 8824 September, [facility] [address] [id number] [place] [address]- 0546 September, [facility] [address] [id number] [place] [address]- 1229 September, [facility] [address] [id number] [place] [address]- 3405 September, [facility] [address] [id number] [place] [address]- 9702 September, [facility] [place] [facility] [address] [id number] [place] 9948 September, [facility] [place] [facility] [address] [id number] [place] 5837 September, [facility] [address] [id number] [place] [address]- 2561 September, [facility] [place] [facility] [address] [id number] [place] [address]- 1050 September, [facility] [place] [facility] [address] [id number] [place] [address]- 8750 September, [facility] [place] [facility] [address] [id number] [place] [address]- 6794 Aug, [facility] [place] [facility] [address] [id number] [place] [address]- 9735 Aug, [facility] [place] [facility] [address] [id number] [place] [address]- 3480 Aug, [facility] [place] [facility] [address] [id number] [place] [address]- 8006 Aug, [facility] [place] [facility] [address] [id number] [place] [address]- 8691 Aug, [facility] [place] [facility] [address] [id number] [place] [address]- 1242 Aug, [facility] [place] [facility] [address] [id number] [place] [address]- 2798 Aug, [facility] [place] [facility] [address] [id number] [place] [address]- 4374 Aug, [facility] [place] [facility] [address] [id number] [place] [address]- 8708 Aug, [facility] [place] [facility] [address] [id number] [place] [address]- 9577 Aug, [facility] [place] [facility] [address] [id number] [place] [address]- 7974 Aug, [facility] [place] [facility] [address] [id number] [place] [address]- 3274 Aug, [facility] [place] [facility] [address] [id number] [place] [address]- 7175 Aug, [facility] [place] [facility] [address] [id number] [place] [address]- 9616 Aug, [facility] [place] [facility] [address] [id number] [place] [address]- 4105 Aug, [facility] [place] [facility] [address] [id number] [place] [address]- 7389 Jul, [facility] [place] [facility] [address] [id number] [place] [address]- 9422 Jul, [facility] [place] [facility] [address] [id number] [place] [address]- 8546 Jul, [facility] [place] [facility] [address] [id number] [place] [address]- 7119 Jul, [facility] [place] [facility] [address] [id number] [place] [address]- 7070 Jul, [facility] [place] [facility] [address] [id number] [place] [address]- 1795 Jul, [facility] [place] [facility] [address] [id number] [place] [address]- 8879 Jul, [facility] [place] [facility] [address] [id number] [place] [address]- 4988 Jul, [facility] [place] [facility] [address] [id number] [place] [address]- 0344 Jul, [facility] [place] [facility] [address] [id number] [place] [address]- 7717 Jul, [facility] [place] [facility] [address] [id number] [place] [address]- 3563 Jul, [facility] [place] [facility] [address] [id number] [place] [address]- 6534 Jul, [facility] [place] [facility] [address] [id number] [place] [address]- 7104 Jul, [facility] [place] [facility] [address] [id number] [place] [address]- 2145 Jul, [facility] [place] [facility] [address] [id number] [place] [address]- 0749 Jul, [facility] [place] [facility] [address] [id number] [place] [address]- 9372 Jun, [facility] [place] [facility] [address] [id number] [place] [address]- 4516 Jun, [facility] [place] [facility] [address] [id number] [place] [address]- 3256 Jun, [facility] [place] [facility] [address] [id number] [place] [address]- 4666 Jun, [facility] [place] [facility] [address] [id number] [place] [address]- 8229 Jun, [facility] [place] [facility] [address] [id number] [place] [address]- 5958 Jun, [facility] [place] [facility] [address] [id number] [place] [address]- 3619 May, [facility] [place] [facility] [address] [id number] [place] [address]- 3929 May, [facility] [place] [facility] [address] [id number] [place] [address]- 7597 May, [facility] [place] [facility] [address] [id number] [place] [address] May, [facility] [place] [facility] [address] [id number] [place] [address] May, [facility] [place] [facility] [address] [id number] [place] [address] May, [facility] [place] [facility] [address] [id number] [place] [address]36 May, [facility] [place] [facility] [address] [id number] [place] [address] May, [facility] [place] [facility] [address] [id number] [place] [address] May, [facility] [address] [id number] [place] [address] May, [facility] [place] [facility] [address] [id number] [place] [address] May, [facility] [place] [facility] [address] [id number] [place] [address] May, [facility] [place] [facility] [address] [id number] [place] [address] May, [facility] [place] [facility] [address] [id number] [place] [address]- [address] May, [facility] [place] [facility] [address] [id number] [place] [address]- [address] May, [facility] [place] [facility] [address] [id number] [place] [address] Apr, [facility] [place] [facility] [address] [id number] [place] [address]758 Apr, [facility] [place] [facility] [address] [id number] [place] [address]- [address] Apr, [facility] [place] [facility] [address] [id number] [place] [address] Apr, [facility] [place] [facility] [address] [id number] [place] [address]- [address] Apr, [facility] [place] [facility] [address] [id number] [place] [address]- [address] Apr, [facility] [place] [facility] [address] [id number] [place] [address]- [address] Apr, [facility] [place] [facility] [address] [id number] [place] [address]- [address] Apr, [facility] [place] [facility] [address] [id number] [place] [address]- 24[address] Apr, [facility] [place] [facility] [address] [id number] [place] [address]- 6969 Apr, [facility] [address] [id number] [place] [address] Mar, [facility] [address] [id number] [place] [address]- [address] Mar, [facility] [address] [id number] [place] [address] Mar, [facility] [address] [id number] [place] [address]- [address] Mar, [facility] [address] [id number] [place] [address]- [address]68 Mar, [facility] [address] [id number] [place] [address]- 1448 Mar, [facility] [address] [id number] [place] [address] Mar, [facility] [address] [id number] [place] [address] Mar, [facility] [address] [id number] [place] [address]- 1632 Mar, [facility] [address] [id number] [place] [address]15 Mar, [facility] [address] [id number] [place] [address]- 7084 Mar, [facility] [address] [id number] [place] [address]- 7814 Mar, [facility] [place] [facility] [address] [id number] [place] [address] 8820 Mar, [facility] [place] [facility] [address] [id number] [place] [address]- 4935 Mar, [facility] [address] [id number] [place] [address]- [address] Mar, [facility] [place] [facility] [address] [id number] [place] [address]- [address] 18 Mar, 2013 [facility] [place] [facility] [address] [id number] [place] [address]- 1029 Mar, [facility] [place] [facility] [address] [id number] [place] [address]- [address] Mar, [facility] [place] [facility] [address] [id number] [place] [address]- [address]99 Mar, [facility] [place] [facility] [address] [id number] [place] [address]- 5668 Mar, [facility] [place] [facility] [address] [id number] [place] [address]- [address] Mar, [facility] [place] [facility] [address] [id number] [place] [address]- 2260 Mar, [facility] [place] [facility] [address] [id number] [address] Mar, [facility] [place] [facility] [address] [id number] [address] Feb, [facility] [place] [facility] [address] [id number] [place] [address]- [address] Feb, [facility] [place] [facility] [address] [id number] [address]- [address] Feb, [facility] [place] [facility] [address] [id number] [place] [address]- [address] 16 Feb, 2013 [facility] [place] [facility] [address] [id number] [place] [address]- [address] 15 Feb, 2013 [facility] [place] [facility] [address] [id number] [place] [address] Feb, [facility] [place] [facility] [address] [facility] [id number] [place] [address]- [address] Feb, [facility] [place] [facility] [address] [id number] [place] [address]- [address] Feb, [facility] [address] [id number] [place] [address]- 1554 Feb, [facility] [place] [facility] [address] [id number] [place] [address]- 5[address] Feb, [facility] [place] [facility] [address] [id number] [place] [address]- [address]44 30 Jan, 2013 [facility] [place] [facility] [address] [id number] [place] [address]- 3917 26 Jan, 2013 [facility] [place] [facility] [address] [id number] [place] [address]- [address]39 24 Jan, 2013 [facility] [place] [facility] [address] [id number] [place] [address]- [address] 23 Jan, 2013 [facility] [place] [facility] [address] [id number] [place] [address]- 6065 17 Jan, 2013 [facility] [place] [facility] [address] [id number] [place] [address]- 3516 Dec, [facility] [place] [facility] [address] [id number] [place] [address]- [address]165 Dec, [facility] [place] [facility] [address] [id number] [place] [address]- 68[address] Dec, [facility] [place] [facility] [address] [id number] [place] [address]- [address]30 15 Dec, 2012 [facility] [place] [facility] [address] [id number] [place] [address] 14 Dec, 2012 [facility] [place] [facility] [address] [id number] [place] [address] Dec, [facility] [place] [facility] [address] [id number] [place] [address] Dec, [facility] [place] [facility] [address] [id number] [place] [address] 64[address] Nov, [facility] [place] [facility] [address] [id number] [place] [address] 16 Nov, 2012 [facility] [address] [id number] [place] [address] 10[address] 15 Nov, 2012 [facility] [place] [facility] [address] [id number] [place] [address] 05 Nov, 2012 [facility] [address] [id number] [place] [address] Nov, [facility] [place] [facility] [address] [id number] [place] [address] 4[address] Oct, [facility] [address] [id number] [place] [address] Oct, [facility] [place] [facility] [address] [id number] [place] [address] 2546 Oct, [facility] [address] [id number] [place] [address] 8246 September, [facility] [address] [id number] [place] [address]- 9890 September, [facility] [address] [id number] [place] [address]- 2266 September, [facility] [address] [id number] [place] [address]- 1406 September, [facility] [place] [facility] [address] [id number] [place] [address]- 0036 September, [facility] [address] [id number] [place] [address]- 2546 September, [facility] [place] [facility] [address] [id number] [place] [address]- 2546 September, [facility] [place] [facility] [address] [id number] [place] [address]- 2546 Aug, [facility] [place] [facility] [address] [id number] [place] [address]- 9430 23 Aug, 2012 [facility] [place] [facility] [address] [id number] [place] [address]- 3287 11 Aug, 2012 [facility] [place] [facility] [address] [id number] [place] [address]- 8867 29 Jul, 2012 [facility] [place] [facility] [address] [id number] [place] [address]- 7013 27 Jul, 2012 [facility] [place] [facility] [address] [id number] [place] [address]- 6171 26 Jul, 2012 [facility] [place] [facility] [address] [id number] [place] [address]- 1288 20 Jul, 2012 [facility] [place] [facility] [address] [id number] [place] [address]- 9149 18 Jul, 2012 [facility] [place] [facility] [address] [facility] [id number] [place] [address]- 0865 18 Jul, 2012 [facility] [place] [facility] [address] [id number] [place] [address]- 4688 13 Jul, 2012 [facility] [place] [facility] [address] [id number] [place] [address]- 1146 28 Jun, 2012 [facility] [place] [facility] [address] [facility] [id number] [place] [address]- 9681 27 Jun, 2012 [facility] [place] [facility] [address] [facility] [id number] [place] [address]- 5075 22 Jun, 2012 [facility] [place] [facility] [address] [id number] [place] [address]- 0974 20 Jun, 2012 [facility] [place] [facility] [address] [id number] [place] [address]- 6606 15 Jun, 2012 [facility] [place] [facility] [address] [id number] [place] [address]- 5728 15 Jun, 2012 [facility] [place] [facility] [address] [facility] [id number] [place] [address]- 8985 13 Jun, 2012 [facility] [place] [facility] [address] [id number] [place] [address]- 0936 Jun, [facility] [address] [id number] [place] [address]- 2956 Jun, [facility] [place] [facility] [address] [id number] [place] [address]- 2546 Jun, [facility] [address] [id number] [place] [address]- 5866 May, [facility] [place] [facility] [address] [id number] [place] [address] 2543 May, [facility] [address] [id number] [place] [address]- 2726 May, [facility] [address] [id number] [place] [address]- 3296 May, [facility] [address] [id number] [place] [address]- 9882 May, [facility] [address] [id number] [place] [address]- 5461 May, [facility] [address] [id number] [place] [address]- 8214 31 Apr, 2012 [facility] [address] [id number] [place] [address] 2546 31 Apr, 2012 [facility] [address] [id number] [place] [address] 2546 Apr, [facility] [place] [facility] [address] [id number] [place] [address] 2541 28 Apr, 2012 [facility] [place] [facility] [address] [id number] [place] [address] 2546 26 Apr, 2012 [facility] [place] [facility] [address] [id number] [place] [address]- 2546 20 Apr, 2012 [facility] [place] [facility] [address] [id number] [place] [address]- 9609 Apr, [facility] [place] [facility] [address] [id number] [place] [address]- 6482 Mar, [facility] [place] [facility] [address] [id number] [place] [address]- 3150 Mar, [facility] [place] [facility] [address] [facility] [id number] [place] [address]- 6398 Mar, [facility] [place] [facility] [address] [id number] [place] [address]- 2944 Mar, [facility] [place] [facility] [address] [id number] [place] [address]- 0895 Mar, [facility] [place] [facility] [address] [id number] [address]- 8762 Mar, [facility] [place] [facility] [address] [id number] [place] [address]- 5169 Mar, [facility] [place] [facility] [address] [id number] [address]- 2998 Mar, [facility] [place] [facility] [address] [id number] [place] [address]- 6064 Mar, [facility] [place] [facility] [address] [id number] [place] [address]- 0653 Mar, [facility] [place] [facility] [address] [id number] [address]- 1071 Mar, [facility] [place] [facility] [address] [id number] [place] [address]- 2069 Mar, [facility] [place] [facility] [address] [id number] [place] [address]- 2064 Mar, [facility] [place] [facility] [address] [facility] [id number] [place] [address]- 3985 Mar, [facility] [place] [facility] [address] [facility] [id number] [place] [address]- 1363 Mar, [facility] [place] [facility] [address] [id number] [place] [address]- 3880 Mar, [facility] [place] [facility] [address] [id number] [place] [address]- 8663 Mar, [facility] [place] [facility] [address] [id number] [place] [address]- 0913 Feb, [facility] [place] [facility] [address] [id number] [place] [address]- 9866 Feb, 2011 [facility] [place] [facility] [address] [id number] [place] [address]- 0522 Feb, [facility] [place] [facility] [address] [id number] [place] [address]- 2540 Feb, [facility] [place] [facility] [address] [id number] [place] [address]- 1941 Feb, [facility] [place] [facility] [address] [id number] [place] [address]- 2259 Feb, [facility] [place] [facility] [address] [id number] [place] [address]- 6720 Feb, [facility] [place] [facility] [address] [id number] [place] [address]- 1782 Feb, [facility] [place] [facility] [address] [facility] [id number] [place] [address]- 2500 Feb, [facility] [place] [facility] [address] [id number] [place] [address]- 7448 Feb, [facility] [place] [facility] [address] [id number] [place] [address]- 5391 Feb, [facility] [place] [facility] [address] [id number] [place] [address]- 5247 27 Jan, 2011 [facility] [place] [facility] [address] [id number] [place] [address]- 6983 25 Jan, 2012 [facility] [place] [facility] [address] [id number] [place] [address]- 0935 13 Jan, 2012 [facility] [place] [facility] [address] [id number] [place] [address]- 1451 12 Jan, 2012 [facility] [place] [facility] [address] [id number] [place] [address]- 0808 Jan, [facility] [place] [facility] [address] [id number] [place] [address]- 2705 Dec, [facility] [place] [facility] [address] [id number] [place] [address]- 1103 Dec, [facility] [place] [facility] [address] [id number] [place] [address]- 4314 Dec, [facility] [place] [facility] [address] [id number] [place] [address]- 8155 Dec, [facility] [place] [facility] [address] [id number] [place] [address]- 4248 Dec, [facility] [place] [facility] [address] [id number] [place] [address]- 9586 Dec, [facility] [place] [facility] [address] [id number] [place] [address]- 2303 Dec, [facility] [place] [facility] [address] [id number] [place] [address]- 6437 Dec, [facility] [place] [facility] [address] [id number] [place] [address]- 6223 Nov, [facility] [place] [facility] [address] [id number] [place] [address]- 9263 Nov, [facility] [place] [facility] [address] [id number] [place] [address]- 2977 Nov, [facility] [place] [facility] [address] [id number] [place] [address]- 2866 Nov, [facility] [place] [facility] [address] [id number] [place] [address]- 4405 Nov, [facility] [place] [facility] [address] [id number] [place] [address]- 5108 Oct, [facility] [address] [id number] [place] Oct, [facility] [place] [facility] [address] [id number] [place] [address]- 8526 September, [facility] [address] [id number] [place] [address]- 9176 September, [facility] [place] [facility] [address] [id number] [place] [address]- 8704 September, [facility] [address] [id number] [place] [address]- 2913 September, [facility] [place] [facility] [address] [id number] [place] [address]- 1494 September, [facility] [address] [id number] [place] [address]- 4365 September, [facility] [place] [facility] [address] [id number] [place] [address]- 2594 September, [facility] [place] [facility] [address] [id number] [place] [address]- 7661 September, [facility] [place] [facility] [address] [id number] [place] [address]- 2411 September, [facility] [place] [facility] [address] [id number] [place] [address]- 3999 September, [facility] [place] [facility] [address] [id number] [place] [address]- 3323 September, [facility] [place] [facility] [address] [id number] [place] [address]- 8776 September, [facility] [place] [facility] [address] [id number] [place] [address]- 2921 September, [facility] [place] [facility] [address] [id number] [place] [address]- 1755 September, [facility] [place] [facility] [address] [id number] [place] [address]- 8504 24 Aug, 2011 [facility] [address] [id number] [place] [address]- 0629 20 Aug, 2011 [facility] [address] [id number] [place] [address]- 1586 13 Aug, 2011 [facility] [address] [id number] [place] [address]- 5027 11 Aug, 2011 [facility] [address] [id number] [place] [address]- 6227 23 Jul, 2011 [facility] [address] [id number] [place] [address]- 4090 13 Jul, 2011 [facility] [address] [id number] [place] [address]- 4957 13 Jul, 2011 [facility] [address] [id number] [place] [address]- 4669 28 Jun, [address] [facility] [address] [id number] [address] 26 Jun, 2011 [facility] [address] [id number] [place] [address]- 7753 13 Jun, 2011 [facility] [address] [id number] [place] [address]- 7780 10 Jun, 2011 [facility] [address] [id number] [place] [address]- 3786 07 Jun, 2011 [facility] [address] [id number] [place] [address]- 1336 07 Jun, 2011 [facility] [place] [facility] [address] [id number] [place] [address]- 6066 03 Jun, 2011 [facility] [place] [facility] [address] [id number] [place] [address]- 5046 02 Jun, 2011 [facility] [place] [facility] [address] [id number] [place] [address]- 3657 31 May, 2011 [facility] [address] [id number] [place] [address]- 1438 30 May, 2011 [facility] [address] [id number] [place] [address]- 2180 May, [facility] [address] [id number] [place] [address]- 4935 May, [facility] [address] [id number] [place] [address]- 0996 May, [facility] [address] [id number] [place] [address]- 5594 May, [facility] [address] [id number] [place] [address]- 3687 May, [facility] [address] [id number] [place] [address]- 9008 May, [facility] [place] [facility] [address] [id number] [place] [address]- 3390 May, [facility] [address] [id number] [place] [address]- 9473 May, [facility] [place] [facility] [address] [id number] [place] [address]- 7089 May, [facility] [address] [id number] [address]- 3152 May, [facility] [place] [facility] [address] [id number] [place] [address]- 2847 May, [facility] [place] [facility] [address] [id number] [place] [address]- 9244 May, [facility] [place] [facility] [address] [id number] [place] [address]- 8005 30 Apr, 2011 [facility] [place] [facility] [address] [id number] [place] [address]- 6500 16 Apr, 2011 [facility] [place] [facility] [address] [id number] [place] [address]- 4652 05 Apr, 2011 [facility] [place] [facility] [address] [id number] [place] [address]- 8716 17 Mar, 2011 [facility] [place] [facility] [address] [id number] [place] [address] 2546 Mar, [facility] [place] [facility] [address] [id number] [place] [address]- 4476 31 Feb, 2011 [facility] [place] [facility] [address] [id number] [place] [address] 2546 26 Feb, 2011 [facility] [place] [facility] [address] [id number] [place] [address]- 2466 Feb, [facility] [place] [facility] [address] [id number] [place] [address]- 7194 20 Feb, 2011 [facility] [place] [facility] [address] [id number] [place] [address]- 1885 13 Feb, 2011 [facility] [place] [facility] [address] [id number] [place] [address]- 9599 28 Apr, 2010 [facility] [place] [facility] [address] [id number] [place] [address] 2546 22 Apr, 2010 [facility] [place] [facility] [address] [facility] [id number] [place] [address] 2543 16 Apr, 2010 [facility] [place] [facility] [address] [id number] [place] [address] 2546 15 Apr, 2010 [facility] [place] [facility] [address] [id number] [place] [address] 2546 15 Apr, 2010 [facility] [place] [facility] [address] [id number] [place] [address] 2546 Apr, [facility] [place] [facility] [address] [id number] [place] [address] 2546 24 Mar, 2010 [facility] [place] [facility] [address] [id number] [place] [address] 2542 17 Mar, 2010 [facility] [id number] [address]- 0800 17 Mar, 2010 [facility] [id number] [address]- 9531 28 Feb, 2010 [facility] [id number] [address]- 8596 Feb, [facility] [id number] [place] [address]- 9780 Feb, [facility] [id number] [address]- 8410 Feb, [facility] [id number] [place] [address] 46[address]- 9499 Dec, [facility] [id number] [address]- 6729 Dec, [facility] [id number] [place] [address]25[address]- 9811 Oct, [facility] [id number] [address]- 2142 Mar, [facility] [id number] [address]- 3009 Mar, [facility] [id number] [address]- 9241 September, IMMUNIZATIONS No Known Immunizations SOCIAL HISTORY Never Assessed [place] [place] VITAL SIGNS MEDICATIONS [...]
--- OUTSIDE RECORDS SUMMARY | 2018-09-19 08:57 | XMS REPORT ---
Author Author Migration, Doctor Organization [facility] Address Unknown Phone Unavailable Care Team Providers Care Logistics Supervisor Name Role Phone Migration, Doctor Unavailable Unavailable PROBLEMS Type Condition ICD9-CM Code LGF13-BP Code Onset Dates Condition Status SNOMED Code Problem Hypokalemia E87.6 Active 222803596 Problem Generalized anxiety disorder F41.1 Active 90985917 Problem Pain in right knee M25.561 Active 61547534 Problem Right low back pain, with sciatica presence unspecified M54.5 Active 474932741 Problem Right foot pain M79.671 Active 86419766 Problem UTI symptoms R39.9 Active 46576374 Problem Essential hypertension I10 Active 38502991 Problem Gastroesophageal reflux disease without esophagitis K21.9 Active 730333634 Problem Weight decrease R63.4 Active 916353302 Problem Depression, unspecified depression type F32.9 Active 72233155 Problem Right upper quadrant abdominal pain R10.11 Active 953708452 Problem Tobacco abuse Z72.0 Active 91222147 Problem Insomnia, unspecified type G47.00 Active 414240020 Problem Weight loss R63.4 Active 233822525 Problem Post-traumatic stress disorder, chronic F43.12 Active 13248827 Problem Pulmonary emphysema, unspecified emphysema type J43.9 Active 85197925 Problem Neuropathy G62.9 Active 355985941 Problem Anxiety F41.9 Active 59822661 Problem Other emphysema J43.8 Active 10250513 Problem Other chronic pain G89.29 Active 98576142 Problem Chronic pain G89.29 Active 00600990 Problem Opioid use disorder, moderate, dependence F11.20 Active 36270787 Problem Back pain M54.9 Active 832425230 Problem Bone pain M89.8X9 Active 66409169 Problem Panic attacks F41.0 Active 600618668 Problem Kidney stones N20.0 Active 39986345 Problem Renal calculus, right N20.0 Active 89753790 Problem Generalized abdominal pain R10.84 Active 741521886 ALLERGIES No Information ENCOUNTERS Encounter Location Date Diagnosis [facility] [address] [address] Feb, [facility] [id number] [place] [address] 52898- 8464 Dec, [facility] [id number] [place] [address] 28988- 7540 Dec, [facility] [id number] [place] [address] 91889- 8387 Dec, Medicare welcome exam Z00.00 [facility] [id number] [place] [address] 85091- 0755 17 Nov, 2017 Opioid use disorder, moderate, dependence F11.20 [facility] [id number] [place] [address] 84378- 3267 16 Nov, 2017 Pelvic pain R10.2 ; Acute pyelonephritis N10 and Essential hypertension I10 [facility] [id number] [place] [address] 91702- 1404 28 Oct, 2017 Medicare welcome exam Z00.00 [facility] [id number] [place] [address] 54666- 0052 Oct, Gross hematuria R31.0 ; Urinary tract infection without hematuria, site unspecified N39.0 and Weakness R53.1 [facility] [id number] [place] [address] 93022- 2727 Oct, [facility] [id number] [place] [address] 45952- 4733 Oct, [facility] [id number] [place] [address] 33450- 2622 Oct, Medicare welcome exam Z00.00 [facility] [id number] [place] [address] 55013- 1482 September, Back pain M54.9 and Right anterior knee pain M25.561 [facility] [id number] [place] [address] 51379- 5547 September, [facility] [address] [address] 1690 September, [facility] [id number] [place] [address] 57833- 5965 September, Essential hypertension I10 [facility] [id number] [place] [address] 01185- 6307 September, [facility] [id number] [place] [address] 52003- 2006 September, RLQ abdominal pain R10.31 ; Low back pain M54.5 and Other chronic pain G89.29 [facility] [id number] [place] [address] 49787- 4537 Aug, Medicare welcome exam Z00.00 [facility] [id number] [place] [address] 07082- 5456 Aug, [facility] [id number] [place] [address] 78231- 1319 Aug, Acute pyelonephritis N10 and Medicare welcome exam Z00.00 [facility] [id number] [place] [address] 38908 -3693 Aug, Dysuria R30.0 and Acute pyelonephritis N10 [facility] [address] [address]- 8290 Aug, [facility] [id number] [place] [address] 48124- 9433 Aug, [facility] [id number] [place] [address] 24012- 5927 Aug, [facility] [id number] [place] [address] 37169- 7481 Aug, [facility] [address] [address]- 4883 Jul, [facility] [id number] [place] [address] 77105- 1950 Jul, Renal calculus, right N20.0 and Medicare welcome exam Z00.00 [facility] [id number] [place] [address] 94030 -6138 Jul, Dysuria R30.0 and Renal calculus, right N20.0 [facility] [id number] [place] [address] 03484- 9602 Jul, Medicare welcome exam Z00.00 [facility] [id number] [place] [address] 47908- 2272 Jun, Gastroesophageal reflux disease without esophagitis K21.9 and Generalized abdominal pain R10.84 [facility] [id number] [place] [address] 61311- 7351 Jun, Medicare welcome exam Z00.00 [facility] [id number] [place] [address] 44696- 5157 Jun, [facility] [id number] [place] [address] 89737- 2107 Jun, Medicare welcome exam Z00.00 and Encounter for screening mammogram for malignant neoplasm of breast Z12.31 [facility] [id number] [place] [address] 91082- 8735 Jun, Chronic pain G89.29 [facility] [id number] [place] [address] 65078- 8368 May, [facility] [id number] [place] [address] 27121- 6567 May, Pelvic pain R10.2 [facility] [id number] [place] [address] 23501- 8696 May, Pelvic pain R10.2 [facility] [id number] [place] [address] 14169 -9585 May, Renal calculus, right N20.0 [facility] [id number] [place] [address] 88292- 2944 May, Hematuria, unspecified type R31.9 and Nephrolithiasis N20.0 [facility] [id number] [place] [address] 60756 -0101 May, Dysuria R30.0 and Nephrolithiasis N20.0 [facility] [id number] [place] [address] 13762- 8707 May, [facility] [id number] [place] [address] 21904 -5108 May, Abdominal pain R10.9 and Kidney stone N20.0 [facility] [id number] [place] [address] 21103- 7640 May, [facility] [id number] [place] [address] 46988- 5875 May, Chronic pain G89.29 and Panic attacks F41.0 [facility] [id number] [place] [address] 38889- 6445 May, Urinary tract infection without hematuria, site unspecified N39.0 [facility] [id number] [place] [address] 12046- 1400 Apr, Right lower quadrant abdominal pain R10.31 and Abnormal serum lipase level R74.8 [facility] [id number] [place] [address] 75442- 2852 Apr, Recurrent urinary tract infection N39.0 [facility] [id number] [place] [address] 11311- 8834 Apr, UTI symptoms R39.9 ; Recurrent urinary tract infection N39.0 and Pelvic pain R10.2 [facility] [id number] [place] [address] 40272- 3532 Apr, Chronic pain G89.29 and Panic attacks F41.0 [facility] [id number] [place] [address] 72889- 6332 Apr, Dysuria R30.0 [facility] [id number] [place] [address] 68410- 0200 Apr, [facility] [id number] [place] [address] 07493- 4832 Apr, Dysuria R30.0 and Urinary tract infection without hematuria , site unspecified N39.0 [facility] [id number] [place] [address] 82548- 2411 Mar, UTI symptoms R39.9 [facility] [id number] [place] [address] 21167- 0014 Mar, [facility] [id number] [place] [address] 37458- 2001 Mar, Panic attacks F41.0 and Chronic pain G89.29 [facility] [address] 41039- 2194 Mar, [facility] [id number] [place] [address] 64838- 5873 Mar, Dysuria R30.0 [facility] [id number] [place] [address] 97861- 8506 Mar, Dysuria R30.0 [facility] [id number] [place] [address] 36696- 6000 Feb, Chronic pain G89.29 ; Shortness of breath R06.02 ; Weight loss R63.4 ; Encounter for immunization Z23 ; Bone pain M89.8X9 ; Right anterior knee pain M25.561 and Cough R05 [facility] [id number] [place] [address] 24190- 9453 Feb, Shortness of breath R06.02 [facility] [id number] [place] [address] 12443- 2939 Feb, [facility] [id number] [place] [address] 98908- 9310 Feb, Panic attacks F41.0 and Chronic pain G89.29 [facility] [address] 44185- 8897 Feb, [facility] [address] 67554- 0047 04 Feb, 2017 Panic attacks F41.0 ; Shortness of breath R06.02 and Encounter for immunization Z23 [facility] [address] 07041- 4915 Jan, [facility] [address] 78027- 8650 15 Jan, 2017 Anxiety F41.9 and Chronic pain G89.29 [facility] [address] 15794- 7036 Dec, Anxiety F41.9 and Chronic pain G89.29 [facility] [address] 81821- 8221 Nov, Chronic pain G89.29 [facility] [address] 46615- 4505 Nov, Anxiety F41.9 [facility] [address] 91711- 4085 Nov, Chronic pain G89.29 ; Essential hypertension I10 and Other emphysema J43.8 [facility] [id number] [place] [address] 21776- 0275 Oct, Anxiety F41.9 [facility] [address] 22818- 1928 Oct, [facility] [address] 63263- 5973 Oct, Chronic pain G89.29 [facility] [address] 45089- 2840 September, Recurrent UTI N39.0 ; Neuropathy G62.9 and Anxiety F41.9 [facility] [id number] [place] [address] 27624- 7283 September, [facility] [id number] [place] [address] 86703- 2878 September, Chronic pain G89.29 [facility] [id number] [place] [address] 55254- 1712 September, [facility] [address] 59627- 4322 Aug, Post-traumatic stress disorder, chronic F43.12 ; Chronic urinary tract infection N39.0 ; Gastroesophageal reflux disease without esophagitis K21.9 ; Chronic pain G89.29 ; Essential hypertension I10 and Tobacco abuse Z72.0 [facility] [id number] [place] [address] 91072 -3534 Aug, [facility] [address] 36476- 7608 Aug, Chronic pain G89.29 [facility] [address] 53930- 4753 Aug, Insomnia, unspecified type G47.00 [facility] [id number] [place] [address] 26678- 5761 Aug, [facility] [id number] [place] [address] 52202- 4628 Jul, Chronic pain G89.29 [facility] [id number] [place] [address] 44487- 6500 Jul, [facility] [address] 88420- 9670 Jul, [facility] [id number] [place] [address] 00004- 1221 Jul, [facility] [address] 07343- 1344 15 Jul, 2016 Recurrent UTI (urinary tract infection) N39.0 [facility] [id number] [place] [address] 44562- 7509 14 Jul, 2016 [facility] [id number] [place] [address] 02726- 3299 27 Jun, 2016 Chronic pain G89.29 [facility] [id number] [place] [address] 93479- 5261 17 Jun, 2016 [facility] [id number] [place] [address] 07934- 2560 Jun, [facility] [id number] [place] [address] 53628- 2697 May, Chronic pain G89.29 [facility] [id number] [place] [address] 91485- 4620 May, Weight loss R63.4 and Shortness of breath R06.02 [facility] [id number] [place] [address] 91692- 8587 May, Chronic pain G89.29 ; Weight loss R63.4 and Tobacco abuse Z72.0 [facility] [id number] [place] [address] 14508- 9778 May, [facility] [id number] [place] [address] 97082- 0319 May, Hypoxia R09.02 [facility] [id number] [place] [address] 58230- 5252 May, [facility] [id number] [place] [address] 10478- 3409 May, Pulmonary emphysema, unspecified emphysema type J43.9 [facility] [id number] [place] [address] 29076 -6830 May, [facility] [id number] [place] [address] 09812- 5611 May, [facility] [id number] [place] [address] 72730- 8009 May, [facility] [address] 18258- 5490 May, Chronic pain G89.29 ; Encounter for immunization Z23 ; Right anterior knee pain M25.561 and Cough R05 [facility] [address] 05673- 2576 Apr, Chronic pain G89.29 [facility] [id number] [place] [address] 30070- 0372 Apr, [facility] [address] 07574- 4834 Apr, Generalized anxiety disorder F41.1 and Depression, unspecified depression type F32.9 [facility] [address] 58316- 9673 Apr, Chronic pain G89.29 ; Hypokalemia E87.6 and Insomnia, unspecified type G47.00 [facility] [id number] [place] [address] 85723- 6285 Apr, [facility] [id number] [place] [address] 11061- 6064 Apr, Chronic pain G89.29 [facility] [id number] [place] [address] 07713- 9668 Apr, [facility] [id number] [place] [address] 74906- 3423 Mar, [facility] [id number] [place] [address] 46646- 9613 Mar, Insomnia, unspecified type G47.00 [facility] [id number] [place] [address] 64669- 9572 Mar, Chronic pain G89.29 [facility] [id number] [place] [address] 85147- 1153 Mar, [facility] [address] [address]- 6566 Feb, [facility] [address] [address]- 4792 Feb, [facility] [id number] [place] [address] 97050- 9668 Feb, [facility] [id number] [place] [address] 37732- 7584 Feb, [facility] [id number] [place] [address] 76449- 6387 Feb, [facility] [id number] [place] [address] 87789- 5090 29 Jan, 2016 [facility] [id number] [place] [address] 86852- 1002 26 Jan, 2015 [facility] [address] [address]- 1936 20 Jan, 2015 [facility] [id number] [place] [address] 61200- 9100 13 Jan, 2015 [facility] [address] [address]- 2189 12 Jan, 2016 [facility] [id number] [place] [address] 74327- 3328 07 Jan, 2015 Chronic pain G89.29 [facility] [address] [address]- 3172 Jan, 2015 Chronic pain G89.29 and Fibromyalgia M79.7 [facility] [address] [address]- 1759 Dec, Depression, unspecified depression type F32.9 and Generalized anxiety disorder 300.02 [facility] [address] [address]- 6961 Dec, Dysthymia F34.1 ; Insomnia, unspecified type G47.00 and Chronic pain G89.29 [facility] [address] [facility] [id number] [place] [address] 58046- 1666 Dec, Chronic pain G89.29 [facility] [id number] [place] [address] 48683 2546 Dec, Insomnia, unspecified type G47.00 [facility] [address] [facility] [id number] [place] [address] 37797 2548 Dec, Fibromyalgia M79.7 and Chronic pain G89.29 [facility] [id number] [place] [address] 05638- 9686 Dec, [facility] [id number] [place] [address] 05614 2546 Dec, [facility] [id number] [place] [address] 99735- 4615 Dec, [facility] [id number] [place] [address] 19678 2546 Dec, [facility] [id number] [place] [address] 32872- 8572 Dec, Chronic pain G89.29 [facility] [id number] [place] [address] 49888 2543 Dec, [facility] [id number] [place] [address] 53885 2541 Dec, [facility] [id number] [place] [address] 21768 2546 Dec, [facility] [id number] [place] [address] 75255 254 Dec, Chronic pain G89.29 and Dysthymia F34.1 [facility] [id number] [place] [address] 54739 2541 Nov, [facility] [id number] [place] [address] 57280- 5724 Nov, Hypokalemia E87.6 and Chronic pain G89.29 [facility] [address] 49432- 1418 Nov, Back pain M54.9 and Pain in right knee M25.561 [facility] [address] 20828- 0238 Nov, [facility] [address] 73442- 9008 Nov, Chronic pain G89.29 [facility] [address] 92578- 6217 Nov, Chronic pain G89.29 ; Weight loss R63.4 ; Bone pain M89.8X9 and Insomnia, unspecified type G47.00 [facility] [address] 89161- 3572 Nov, Chronic pain G89.29 [facility] [address] 99110- 1637 Nov, Chronic pain G89.29 [facility] [address] 34799- 0519 30 Oct, 2015 Chronic pain G89.29 [facility] [id number] [place] [address] 53521- 9143 Oct, UTI symptoms R39.9 [facility] [id number] [place] [address] 50529- 3814 27 Oct, 2015 Chronic pain G89.29 [facility] [address] 17241- 7409 20 Oct, 2015 Chronic pain G89.29 [facility] [id number] [place] [address] 35380- 3318 13 Oct, 2015 Chronic pain G89.29 [facility] [address] 60620- 0967 Oct, Right upper quadrant abdominal pain R10.11 [facility] [address] [address]- 9275 Oct, Chronic pain G89.29 [facility] [id number] [address] Oct, [facility] [id number] [place] [address] 04288- 3028 September, Chronic pain G89.29 [facility] [id number] [place] [address] 20386- 5935 September, Dysuria R30.0 and Urinary tract infection without hematuria , site unspecified N39.0 [facility] [id number] [place] [address] 36592- 1189 September, [facility] [id number] [place] [address] 58863- 2597 September, Dysuria R30.0 [facility] [id number] [place] [address] 66777- 1593 September, Chronic pain G89.29 [facility] [id number] [place] [address] 48477- 6928 September, Chronic pain G89.29 and Essential hypertension I10 [facility] [id number] [address] September, [facility] [id number] [place] [address] 40430- 2630 September, [facility] [id number] [place] [address] 64719- 0128 September, [facility] [id number] [place] [address] 44585- 1916 Aug, UTI symptoms R39.9 [facility] [address] [address] Aug, Dysuria R30.0 [facility] [address] [address] Aug, [facility] [id number] [place] [address] 44966- 6692 Aug, [facility] [id number] [place] [address] 63829- 7153 Aug, [facility] [id number] [place] [address] 69892- 4864 Aug, Chronic pain G89.29 [facility] [id number] [place] [address] 68454- 9481 Aug, Dysthymia F34.1 [facility] [id number] [place] [address] 62865- 7973 Aug, Conjunctivitis, unspecified conjunctivitis type, unspecified laterality H10.9 [facility] [facility] [id number] [place] [address] 64774- 9849 Jul, Chronic pain G89.29 ; Back pain M54.9 ; Tobacco abuse Z72.0 and Weight decrease R63.4 [facility] [id number] [place] [address] 10573- 4304 Jul, [facility] [id number] [place] [address] 55904- 2638 Jul, [facility] [id number] [place] [address] 12144- 0776 24 Jul, 2015 Chronic pain G89.29 [facility] [address] [address] 0493 Jul, [facility] [id number] [place] [address] 53636- 6043 Jul, [facility] [id number] [place] [address] 63947- 6353 Jul, [facility] [id number] [place] [address] 20828- 5889 17 Jul, 2015 [facility] [address] [address] 3339 17 Jul, 2015 Chronic pain G89.29 [facility] [address] [address] 9296 16 Jul, 2015 Chronic pain G89.29 [facility] [id number] [place] [address] 34314- 0144 15 Jul, 2015 [facility] [id number] [place] [address] 69077- 6274 Jul, [facility] [id number] [place] [address] 23418- 6085 Jul, [facility] [id number] [place] [address] 31151- 0763 Jul, [facility] [id number] [place] [address] 35037- 3334 Jun, [facility] [id number] [place] [address] 67770- 1657 Jun, Depression, unspecified depression type F32.9 [facility] [id number] [place] [address] 46188- 8642 Jun, Pain in right knee M25.561 [facility] [id number] [place] [address] 30227- 5538 24 Jun, 2015 Chronic pain G89.29 ; Back pain M54.9 ; Bone pain M89.8X9 and Weight loss R63.4 [facility] [id number] [place] [address] 33446- 4434 Jun, [facility] [id number] [place] [address] 06165- 9526 May, [facility] [address] [address]- 5035 May, UTI symptoms R39.9 ; Pain in right knee M25.561 ; Right low back pain, with sciatica presence unspecified M54.5 ; Right foot pain M79.671 ; Hypokalemia E87.6 and Screening, lipid Z13.220 [facility] [id number] [place] [address] 21684- 1818 May, [facility] [id number] [place] [address] 75624- 0090 May, [facility] [id number] [place] [address] 78242- 6056 Mar, [facility] [id number] [place] [address] 88007- 4083 Mar, [facility] [id number] [place] [address] 00392- 8414 Mar, Hypokalemia E87.6 [facility] [address] 49858- 9913 Mar, Pain in right leg M79.604 ; Encounter for immunization Z23 ; Pain in right knee M25.561 and Hypokalemia E87.6 [facility] [id number] [place] [address] 63129- 0130 Jan, [facility] [id number] [place] [address] 83730- 4610 Jan, [facility] [id number] [place] [address] 27693 2542 Jan, Abdominal pain, generalized 789.07 [facility] [id number] [place] [address] 99875 2547 Jan, Abdominal pain, generalized 789.07 [facility] [id number] [place] [address] 50088- 7580 Dec, [facility] [id number] [place] [address] 62124- 7347 Dec, [facility] [address] [address]- 4146 Dec, [facility] [id number] [place] [address] 98257- 6211 Nov, Hallux valgus 735.0 and Hammertoe 735.4 [facility] [address] [address]- 9676 Nov, [facility] [id number] [place] [address] 89984- 8900 Nov, Hallux valgus 735.0 and Hammer toe 735.4 [facility] [id number] [place] [address] 66298- 3216 Oct, [facility] [id number] [place] [address] 14845- 8916 Oct, [facility] [id number] [place] [address] 94460- 0598 Oct, Pre-op evaluation V72.84 [facility] [address] [address]- 0442 Oct, [facility] [id number] [place] [address] 83586- 5349 Oct, [facility] [address] [address]- 9037 September, [facility] [address] [address] 2546 September, [facility] [id number] [address]- 5210 September, Hallux valgus (acquired) 735.0 and Other hammer toe ( acquired) 735.4 [facility] [address] [address]- 2546 Aug, [facility] [id number] [place] [address] 75426- 3005 Aug, [facility] [place] [facility] [address] [id number] [place] [address]- 5656 Jul, [facility] [place] [facility] [address] [id number] [place] [address]- 4451 Jul, [facility] [place] [facility] [address] [id number] [place] [address]- 5958 Jul, [facility] [place] [facility] [address] [id number] [place] [address]- 3893 Jul, [facility] [place] [facility] [address] [id number] [place] [address]- 7410 Jul, [facility] [place] [facility] [address] [id number] [place] [address]- 3174 Jul, [facility] [place] [facility] [address] [facility] [id number] [place] [address]- 1510 Jul, [facility] [place] [facility] [address] [id number] [place] [address]- 2372 Jul, [facility] [place] [facility] [address] [id number] [place] [address]- 3218 Jun, [facility] [place] [facility] [address] [facility] [id number] [place] [address]- 3855 Jun, [facility] [place] [facility] [address] [id number] [place] [address]- 0091 Jun, 2014 [facility] [place] [facility] [address] [id number] [place] [address]- 0941 Jun, [facility] [place] [facility] [address] [id number] [place] [address]- 6841 Jun, [facility] [place] [facility] [address] [id number] [place] [address]- 0152 Jun, [facility] [place] [facility] [address] [facility] [id number] [place] [address]- 9281 Jun, [facility] [place] [facility] [address] [id number] [place] [address]- 8387 Jun, [facility] [address] [id number] [place] [address]- 3162 Jun, [facility] [place] [facility] [address] [id number] [place] [address]- 1876 Jun, [facility] [place] [facility] [address] [id number] [place] [address]- 8783 May, [facility] [place] [facility] [address] [id number] [place] [address]- 8926 May, [facility] [place] [facility] [address] [id number] [place] [address]- 3365 May, [facility] [place] [facility] [address] [id number] [place] [address]- 3034 May, [facility] [place] [facility] [address] [id number] [place] [address]- 3265 May, [facility] [address] [id number] [place] [address]- 3635 May, [facility] [place] [facility] [address] [id number] [place] [address]- 6521 May, [facility] [place] [facility] [address] [id number] [place] [address]- 1873 May, [facility] [place] [facility] [address] [id number] [place] [address]- 2825 May, [facility] [place] [facility] [address] [id number] [place] [address]- 9260 May, [facility] [place] [facility] [address] [id number] [place] [address]- 5043 May, [facility] [place] [facility] [address] [id number] [place] [address]- 1796 May, [facility] [place] [facility] [address] [id number] [place] [address]- 0491 May, [facility] [place] [facility] [address] [id number] [place] [address]- 7292 May, [facility] [place] [facility] [address] [id number] [place] [address]- 0333 May, [facility] [place] [facility] [address] [id number] [place] [address]- 9363 May, [facility] [place] [facility] [address] [id number] [place] [address]- 4369 May, [facility] [place] [facility] [address] [id number] [place] [address]- 3605 May, [facility] [place] [facility] [address] [id number] [place] [address]- 0629 Apr, [facility] [place] [facility] [address] [id number] [place] [address]- 6355 Apr, [facility] [place] [facility] [address] [id number] [place] [address]- 1700 Apr, [facility] [place] [facility] [address] [id number] [place] [address]- 6221 Apr, [facility] [place] [facility] [address] [id number] [place] [address]- 3702 Apr, [facility] [place] [facility] [address] [id number] [place] [address]- 0999 Apr, [facility] [place] [facility] [address] [id number] [place] [address]- 7720 Apr, [facility] [place] [facility] [address] [id number] [place] [address]- 2736 Apr, [facility] [place] [facility] [address] [id number] [place] [address]- 1974 Apr, [facility] [place] [facility] [address] [id number] [place] [address]- 6829 Mar, [facility] [place] [facility] [address] [id number] [place] [address]- 9995 Mar, [facility] [place] [facility] [address] [id number] [place] [address]- 0101 Mar, [facility] [place] [facility] [address] [id number] [place] [address]- 7106 Mar, [facility] [place] [facility] [address] [id number] [place] [address]- 3332 Mar, [facility] [place] [facility] [address] [id number] [place] [address]- 6192 Feb, [facility] [place] [facility] [address] [id number] [place] [address]- 1854 Feb, [facility] [place] [facility] [address] [id number] [place] [address]- 7932 Feb, [facility] [place] [facility] [address] [id number] [place] [address]- 6911 Feb, [facility] [place] [facility] [address] [id number] [place] [address]- 6416 Feb, [facility] [place] [facility] [address] [id number] [place] [address]- 6516 Feb, [facility] [place] [facility] [address] [id number] [place] [address]- 3550 Feb, [facility] [place] [facility] [address] [id number] [place] [address]- 8019 Feb, [facility] [place] [facility] [address] [id number] [address]- 9881 Feb, [facility] [place] [facility] [address] [id number] [place] 4832 Feb, [facility] [place] [facility] [address] [id number] [place] [address]- 5480 Feb, [facility] [place] [facility] [address] [id number] [place] 3609 Feb, [facility] [place] [facility] [address] [id number] [place] [address]- 0277 07 Feb, 2013 [facility] [place] [facility] [address] [id number] [place] [address]- 0348 Feb, [facility] [place] [facility] [address] [id number] [place] [address]- 1364 Feb, 2013 [facility] [place] [facility] [address] [id number] [place] [address]- 9720 Feb, [facility] [place] [facility] [address] [id number] [place] [address]- 4641 Jan, 2013 [facility] [place] [facility] [address] [id number] [place] [address]- 0861 23 Jan, 2013 [facility] [place] [facility] [address] [id number] [place] [address]- 7897 20 Jan, 2014 [facility] [place] [facility] [address] [id number] [place] [address]- 7718 19 Jan, 2013 [facility] [place] [facility] [address] [id number] [place] [address]- 6865 11 Jan, 2014 [facility] [place] [facility] [address] [id number] [place] [address]- 6652 Jan, [facility] [place] [facility] [address] [id number] [place] [address]- 1317 Jan, [facility] [place] [facility] [address] [id number] [place] [address]- 2586 Jan, 2013 [facility] [place] [facility] [address] [id number] [place] [address]- 5988 Dec, [facility] [place] [facility] [address] [id number] [place] [address]- 3006 Dec, [facility] [place] [facility] [address] [id number] [place] [address]- 3203 Nov, [facility] [place] [facility] [address] [id number] [place] [address]- 6763 Nov, [facility] [place] [facility] [address] [id number] [place] [address]- 2937 Nov, [facility] [place] [facility] [address] [id number] [place] [address]- 6373 Nov, [facility] [place] [facility] [address] [id number] [place] [address]- 4114 Nov, [facility] [place] [facility] [address] [id number] [place] [address]- 9371 Nov, [facility] [place] [facility] [address] [id number] [place] [address]- 3176 Nov, [facility] [place] [facility] [address] [id number] [place] [address]- 7152 Nov, [facility] [place] [facility] [address] [id number] [place] [address]- 4974 Nov, [facility] [place] [facility] [address] [id number] [place] [address]- 8028 Oct, [facility] [place] [facility] [address] [id number] [place] [address]- 7236 Oct, [facility] [place] [facility] [address] [id number] [place] [address]- 8329 Oct, [facility] [place] [facility] [address] [id number] [place] [address]- 7990 Oct, [facility] [place] [facility] [address] [id number] [place] [address]- 7662 Oct, [facility] [place] [facility] [address] [id number] [place] [address]- 5535 Oct, [facility] [place] [facility] [address] [id number] [place] [address]- 9517 September, [facility] [place] [facility] [address] [id number] [place] [address]- 8122 September, [facility] [place] [facility] [address] [id number] [place] [address]- 8275 September, [facility] [address] [id number] [place] 6032 September, [facility] [address] [id number] [place] [address]- 6768 September, [facility] [address] [id number] [place] [address]- 1306 September, [facility] [address] [id number] [place] [address]- 8704 September, [facility] [address] [id number] [place] 1391 September, [facility] [address] [id number] [place] [address]- 7910 September, [facility] [address] [id number] [place] [address]- 2085 September, [facility] [address] [id number] [place] [address]- 8877 September, [facility] [address] [id number] [place] [address]- 9374 September, [facility] [address] [id number] [place] [address]- 1540 September, [facility] [address] [id number] [place] [address]- 1229 September, [facility] [address] [id number] [place] [address]- 7647 September, [facility] [place] [facility] [address] [id number] [place] 5693 September, [facility] [place] [facility] [address] [id number] [place] 5278 September, [facility] [address] [id number] [place] [address]- 2033 September, [facility] [place] [facility] [address] [id number] [place] [address]- 2858 September, [facility] [place] [facility] [address] [id number] [place] [address]- 4050 September, [facility] [place] [facility] [address] [id number] [place] [address]- 2721 Aug, [facility] [place] [facility] [address] [id number] [place] [address]- 5803 Aug, [facility] [place] [facility] [address] [id number] [place] [address]- 2283 Aug, [facility] [place] [facility] [address] [id number] [place] [address]- 5495 Aug, [facility] [place] [facility] [address] [id number] [place] [address]- 7461 Aug, [facility] [place] [facility] [address] [id number] [place] [address]- 6774 Aug, [facility] [place] [facility] [address] [id number] [place] [address]- 6099 Aug, [facility] [place] [facility] [address] [id number] [place] [address]- 1413 Aug, [facility] [place] [facility] [address] [id number] [place] [address]- 1420 Aug, [facility] [place] [facility] [address] [id number] [place] [address]- 1123 Aug, [facility] [place] [facility] [address] [id number] [place] [address]- 6936 Aug, [facility] [place] [facility] [address] [id number] [place] [address]- 7258 Aug, [facility] [place] [facility] [address] [id number] [place] [address]- 5684 Aug, [facility] [place] [facility] [address] [id number] [place] [address]- 4897 Aug, [facility] [place] [facility] [address] [id number] [place] [address]- 5136 Aug, [facility] [place] [facility] [address] [id number] [place] [address]- 4661 Jul, [facility] [place] [facility] [address] [id number] [place] [address]- 3765 Jul, [facility] [place] [facility] [address] [id number] [place] [address]- 9917 Jul, [facility] [place] [facility] [address] [id number] [place] [address]- 6286 Jul, [facility] [place] [facility] [address] [id number] [place] [address]- 1608 Jul, [facility] [place] [facility] [address] [id number] [place] [address]- 4103 Jul, [facility] [place] [facility] [address] [id number] [place] [address]- 5615 Jul, [facility] [place] [facility] [address] [id number] [place] [address]- 3965 Jul, [facility] [place] [facility] [address] [id number] [place] [address]- 1220 Jul, [facility] [place] [facility] [address] [id number] [place] [address]- 3556 Jul, [facility] [place] [facility] [address] [id number] [place] [address]- 2895 Jul, [facility] [place] [facility] [address] [id number] [place] [address]- 8003 Jul, [facility] [place] [facility] [address] [id number] [place] [address]- 2889 Jul, [facility] [place] [facility] [address] [id number] [place] [address]- 8435 Jul, [facility] [place] [facility] [address] [id number] [place] [address] Jul, [facility] [place] [facility] [address] [id number] [place] [address] Jun, [facility] [place] [facility] [address] [id number] [place] [address] Jun, [facility] [place] [facility] [address] [id number] [place] [address] Jun, [facility] [place] [facility] [address] [id number] [place] [address] Jun, [facility] [place] [facility] [address] [id number] [place] [address] Jun, [facility] [place] [facility] [address] [id number] [place] [address] Jun, [facility] [place] [facility] [address] [id number] [place] [address] May, [facility] [place] [facility] [address] [id number] [place] [address] May, [facility] [place] [facility] [address] [id number] [place] [address] May, [facility] [place] [facility] [address] [id number] [place] [address] May, [facility] [place] [facility] [address] [id number] [place] [address] May, [facility] [place] [facility] [address] [id number] [place] [address] May, [facility] [place] [facility] [address] [id number] [place] [address]- [address] May, [facility] [place] [facility] [address] [id number] [place] [address] May, [facility] [place] [facility] [address] [id number] [place] [address] May, [facility] [address] [id number] [place] [address] May, [facility] [place] [facility] [address] [id number] [place] [address] May, [facility] [place] [facility] [address] [id number] [place] [address] May, [facility] [place] [facility] [address] [id number] [place] [address] May, [facility] [place] [facility] [address] [id number] [place] [address]- [address] May, [facility] [place] [facility] [address] [id number] [place] [address]- [address] May, [facility] [place] [facility] [address] [id number] [place] [address]- [address] Apr, [facility] [place] [facility] [address] [id number] [place] [address]- [address] Apr, [facility] [place] [facility] [address] [id number] [place] [address]- [address] Apr, [facility] [place] [facility] [address] [id number] [place] [address]- [address] Apr, [facility] [place] [facility] [address] [id number] [place] [address]- [address] Apr, [facility] [place] [facility] [address] [id number] [place] [address] Apr, [facility] [place] [facility] [address] [id number] [place] [address]- [address] Apr, [facility] [place] [facility] [address] [id number] [place] [address] Apr, [facility] [place] [facility] [address] [id number] [place] [address] Apr, [facility] [place] [facility] [address] [id number] [place] [address]- [address] Apr, [facility] [address] [id number] [place] [address] Mar, [facility] [address] [id number] [place] [address] Mar, [facility] [address] [id number] [place] [address] Mar, [facility] [address] [id number] [place] [address]- [address] Mar, [facility] [address] [id number] [place] [address] Mar, [facility] [address] [id number] [place] [address] Mar, [facility] [address] [id number] [place] [address]- [address] Mar, [facility] [address] [id number] [place] [address] Mar, [facility] [address] [id number] [place] [address] Mar, [facility] [address] [id number] [place] [address]- [address] Mar, [facility] [address] [id number] [place] [address] Mar, [facility] [address] [id number] [place] [address]- [address] Mar, [facility] [place] [facility] [address] [id number] [place] [address]- [address] Mar, [facility] [place] [facility] [address] [id number] [place] [address]- [address] Mar, [facility] [address] [id number] [place] [address]- [address] Mar, [facility] [place] [facility] [address] [id number] [place] [address]- [address] 18 Mar, 2013 [facility] [place] [facility] [address] [id number] [place] [address]- [address] Mar, [facility] [place] [facility] [address] [id number] [place] [address]- [address]398 Mar, [facility] [place] [facility] [address] [id number] [place] [address]- 8297 Mar, [facility] [place] [facility] [address] [id number] [place] [address]- 6[address] Mar, [facility] [place] [facility] [address] [id number] [place] [address]- [address] Mar, [facility] [place] [facility] [address] [id number] [place] [address]- [address] Mar, [facility] [place] [facility] [address] [id number] [place] [address] Mar, [facility] [place] [facility] [address] [id number] [place] [address] 1993 Feb, [facility] [place] [facility] [address] [id number] [place] [address] Feb, [facility] [place] [facility] [address] [id number] [place] [address] Feb, [facility] [place] [facility] [address] [id number] [place] [address] 16 Feb, 2013 [facility] [place] [facility] [address] [id number] [place] [address] 15 Feb, 2013 [facility] [place] [facility] [address] [id number] [place] [address]- [address] Feb, [facility] [place] [facility] [address] [facility] [id number] [place] [address] Feb, [facility] [place] [facility] [address] [id number] [place] [address] Feb, [facility] [address] [id number] [place] [address]- [address] Feb, [facility] [place] [facility] [address] [id number] [place] [address]- 160[address] Feb, [facility] [place] [facility] [address] [id number] [place] [address]- [address] 30 Jan, 2013 [facility] [place] [facility] [address] [id number] [place] [address]- [address] 26 Jan, 2013 [facility] [place] [facility] [address] [id number] [place] [address] 24 Jan, 2013 [facility] [place] [facility] [address] [id number] [place] [address] 94[address] 23 Jan, 2013 [facility] [place] [facility] [address] [id number] [place] [address] 7516 17 Jan, 2013 [facility] [place] [facility] [address] [id number] [place] [address]206 Dec, [facility] [place] [facility] [address] [id number] [place] [address] 1079 Dec, [facility] [place] [facility] [address] [id number] [place] [address] 8969 Dec, [facility] [place] [facility] [address] [id number] [place] [address] 15 Dec, 2012 [facility] [place] [facility] [address] [id number] [place] [address] 9581 14 Dec, 2012 [facility] [place] [facility] [address] [id number] [place] [address] 8672 Dec, [facility] [place] [facility] [address] [id number] [place] [address] 6150 Dec, [facility] [place] [facility] [address] [id number] [place] [address] 7935 Nov, [facility] [place] [facility] [address] [id number] [place] [address]46 16 Nov, 2012 [facility] [address] [id number] [place] [address]- 0616 15 Nov, 2012 [facility] [place] [facility] [address] [id number] [place] [address]- 2546 05 Nov, 2012 [facility] [address] [id number] [place] [address]- 2546 Nov, [facility] [place] [facility] [address] [id number] [place] [address] Oct, [facility] [address] [id number] [place] [address] 4876 Oct, [facility] [place] [facility] [address] [id number] [place] [address]- 2546 Oct, [facility] [address] [id number] [place] [address]- 3256 September, [facility] [address] [id number] [place] [address]- 7951 September, [facility] [address] [id number] [place] [address]- 4146 September, [facility] [address] [id number] [place] [address]- 4926 September, [facility] [place] [facility] [address] [id number] [place] [address]- 2396 September, [facility] [address] [id number] [place] [address]- 2546 September, [facility] [place] [facility] [address] [id number] [place] [address]- 2546 September, [facility] [place] [facility] [address] [id number] [place] [address]- 2546 Aug, [facility] [place] [facility] [address] [id number] [place] [address]- 2570 23 Aug, 2012 [facility] [place] [facility] [address] [id number] [place] [address]- 6739 11 Aug, 2012 [facility] [place] [facility] [address] [id number] [place] [address]- 8055 29 Jul, 2012 [facility] [place] [facility] [address] [id number] [place] [address]- 4332 27 Jul, 2012 [facility] [place] [facility] [address] [id number] [place] [address]- 4243 26 Jul, 2012 [facility] [place] [facility] [address] [id number] [place] [address]- 2615 20 Jul, 2012 [facility] [place] [facility] [address] [id number] [place] [address]- 3494 18 Jul, 2012 [facility] [place] [facility] [address] [facility] [id number] [place] [address]- 6501 18 Jul, 2012 [facility] [place] [facility] [address] [id number] [place] [address]- 7752 13 Jul, 2012 [facility] [place] [facility] [address] [id number] [place] [address]- 2562 28 Jun, 2012 [facility] [place] [facility] [address] [facility] [id number] [place] [address]- 3523 27 Jun, 2012 [facility] [place] [facility] [address] [facility] [id number] [place] [address]- 9689 22 Jun, 2012 [facility] [place] [facility] [address] [id number] [place] [address]- 8204 20 Jun, 2012 [facility] [place] [facility] [address] [id number] [place] [address]- 7948 15 Jun, 2012 [facility] [place] [facility] [address] [id number] [place] [address]- 8743 15 Jun, 2012 [facility] [place] [facility] [address] [facility] [id number] [place] [address]- 4136 13 Jun, 2012 [facility] [place] [facility] [address] [id number] [place] [address]- 3106 Jun, [facility] [address] [id number] [place] [address]- 2276 Jun, [facility] [place] [facility] [address] [id number] [place] [address]- 2546 Jun, [facility] [address] [id number] [place] [address]- 2066 May, [facility] [place] [facility] [address] [id number] [place] [address] 2543 May, [facility] [address] [id number] [place] [address]- 2726 May, [facility] [address] [id number] [place] [address]- 5844 May, [facility] [address] [id number] [place] [address]- 0434 May, [facility] [address] [id number] [place] [address]- 1240 May, [facility] [address] [id number] [place] [address]- 3333 31 Apr, 2012 [facility] [address] [id number] [place] [address] 2546 31 Apr, 2012 [facility] [address] [id number] [place] [address] 2546 Apr, [facility] [place] [facility] [address] [id number] [place] [address] 2545 28 Apr, 2012 [facility] [place] [facility] [address] [id number] [place] [address] 2546 26 Apr, 2012 [facility] [place] [facility] [address] [id number] [place] [address]- 2546 20 Apr, 2012 [facility] [place] [facility] [address] [id number] [place] [address]- 0598 Apr, [facility] [place] [facility] [address] [id number] [place] [address]- 9865 Mar, [facility] [place] [facility] [address] [id number] [place] [address]- 8343 Mar, [facility] [place] [facility] [address] [facility] [id number] [place] [address]- 0392 Mar, [facility] [place] [facility] [address] [id number] [place] [address]- 7203 Mar, [facility] [place] [facility] [address] [id number] [place] [address]- 8160 Mar, [facility] [place] [facility] [address] [id number] [place] [address]- 7569 Mar, [facility] [place] [facility] [address] [id number] [place] [address]- 4594 Mar, [facility] [place] [facility] [address] [id number] [place] [address]- 5686 Mar, [facility] [place] [facility] [address] [id number] [place] [address]- 5560 Mar, [facility] [place] [facility] [address] [id number] [place] [address]- 5901 Mar, [facility] [place] [facility] [address] [id number] [place] [address]- 4096 Mar, [facility] [place] [facility] [address] [id number] [place] [address]- 7375 Mar, [facility] [place] [facility] [address] [id number] [place] [address]- 4573 Mar, [facility] [place] [facility] [address] [facility] [id number] [place] [address]- 5013 Mar, [facility] [place] [facility] [address] [facility] [id number] [place] [address]- 0259 Mar, [facility] [place] [facility] [address] [id number] [place] [address]- 4748 Mar, [facility] [place] [facility] [address] [id number] [place] [address]- 6438 Mar, [facility] [place] [facility] [address] [id number] [place] [address]- 4314 Feb, [facility] [place] [facility] [address] [id number] [place] [address]- 3919 Feb, 2011 [facility] [place] [facility] [address] [id number] [place] [address]- 7184 Feb, [facility] [place] [facility] [address] [id number] [place] [address]- 2064 Feb, [facility] [place] [facility] [address] [id number] [place] [address]- 3149 Feb, [facility] [place] [facility] [address] [id number] [place] [address]- 1973 Feb, [facility] [place] [facility] [address] [id number] [place] [address]- 2081 Feb, [facility] [place] [facility] [address] [id number] [place] [address]- 4467 Feb, [facility] [place] [facility] [address] [facility] [id number] [place] [address]- 9479 Feb, [facility] [place] [facility] [address] [id number] [place] [address]- 5433 Feb, [facility] [place] [facility] [address] [id number] [place] [address]- 6997 Feb, [facility] [place] [facility] [address] [id number] [place] [address]- 7614 27 Jan, 2011 [facility] [place] [facility] [address] [id number] [place] [address]- 5695 25 Jan, 2012 [facility] [place] [facility] [address] [id number] [place] [address]- 2796 13 Jan, 2012 [facility] [place] [facility] [address] [id number] [place] [address]- 3232 12 Jan, 2012 [facility] [place] [facility] [address] [id number] [place] [address]- 1052 Jan, [facility] [place] [facility] [address] [id number] [place] [address]- 7709 Dec, [facility] [place] [facility] [address] [id number] [place] [address]- 5325 Dec, [facility] [place] [facility] [address] [id number] [place] [address]- 4558 Dec, [facility] [place] [facility] [address] [id number] [place] [address]- 1386 Dec, [facility] [place] [facility] [address] [id number] [place] [address]- 9676 Dec, [facility] [place] [facility] [address] [id number] [place] [address]- 0766 Dec, [facility] [place] [facility] [address] [id number] [place] [address]- 4782 Dec, [facility] [place] [facility] [address] [id number] [place] [address]- 5408 Dec, [facility] [place] [facility] [address] [id number] [place] [address]- 4837 Nov, [facility] [place] [facility] [address] [id number] [place] [address]- 9211 Nov, [facility] [place] [facility] [address] [id number] [place] [address]- 7921 Nov, [facility] [place] [facility] [address] [id number] [place] [address]- 7291 Nov, [facility] [place] [facility] [address] [id number] [place] [address]- 4411 Nov, [facility] [place] [facility] [address] [id number] [place] [address]- 1990 Oct, [facility] [address] [id number] [place] [address] Oct, [facility] [place] [facility] [address] [id number] [place] [address]- 2871 September, [facility] [address] [id number] [place] [address]- 2276 September, [facility] [place] [facility] [address] [id number] [place] [address]- 2153 September, [facility] [address] [id number] [place] [address]- 1257 September, [facility] [place] [facility] [address] [id number] [place] [address]- 9799 September, [facility] [address] [id number] [place] [address]- 0403 September, [facility] [place] [facility] [address] [id number] [place] [address]- 2359 September, [facility] [place] [facility] [address] [id number] [place] [address]- 6209 September, [facility] [place] [facility] [address] [id number] [place] [address]- 7491 September, [facility] [place] [facility] [address] [id number] [place] [address]- 5921 September, [facility] [place] [facility] [address] [id number] [place] [address]- 7510 September, [facility] [place] [facility] [address] [id number] [place] [address]- 8674 September, [facility] [place] [facility] [address] [id number] [place] [address]- 9519 September, [facility] [place] [facility] [address] [id number] [place] [address]- 6354 September, [facility] [place] [facility] [address] [id number] [place] [address]- 4794 24 Aug, 2011 [facility] [address] [id number] [place] [address]- 4613 20 Aug, 2011 [facility] [address] [id number] [place] [address]- 3646 13 Aug, 2011 [facility] [address] [id number] [place] [address]- 4529 11 Aug, 2011 [facility] [address] [id number] [place] [address]- 7590 23 Jul, 2011 [facility] [address] [id number] [place] [address]- 4998 13 Jul, 2011 [facility] [address] [id number] [place] [address]- 2939 13 Jul, 2011 [facility] [address] [id number] [place] [address]- 2063 28 Jun, [address] [facility] [address] [id number] [id number] 26 Jun, 2011 [facility] [address] [id number] [place] [address]- 5566 13 Jun, 2011 [facility] [address] [id number] [place] [address]- 0653 10 Jun, 2011 [facility] [address] [id number] [place] [address]- 4386 07 Jun, 2011 [facility] [address] [id number] [place] [address]- 8136 07 Jun, 2011 [facility] [place] [facility] [address] [id number] [place] [address]- 5776 03 Jun, 2011 [facility] [place] [facility] [address] [id number] [place] [address]- 8096 02 Jun, 2011 [facility] [place] [facility] [address] [id number] [place] [address]- 4373 31 May, 2011 [facility] [address] [id number] [place] [address]- 4158 30 May, 2011 [facility] [address] [id number] [place] [address]- 8807 May, [facility] [address] [id number] [place] [address]- 3708 May, [facility] [address] [id number] [place] [address]- 8242 May, [facility] [address] [id number] [place] [address]- 8316 May, [facility] [address] [id number] [place] [address]- 6536 May, [facility] [address] [id number] [place] [address]- 7220 May, [facility] [place] [facility] [address] [id number] [place] [address]- 4474 May, [facility] [address] [id number] [place] [address]- 3198 May, [facility] [place] [facility] [address] [id number] [place] [address]- 1957 May, [facility] [address] [id number] [place] [address]- 5832 May, [facility] [place] [facility] [address] [id number] [place] [address]- 7509 May, [facility] [place] [facility] [address] [id number] [place] [address]- 2840 May, [facility] [place] [facility] [address] [id number] [place] [address]- 6950 30 Apr, 2011 [facility] [place] [facility] [address] [id number] [place] [address]- 6912 16 Apr, 2011 [facility] [place] [facility] [address] [id number] [place] [address]- 9853 05 Apr, 2011 [facility] [place] [facility] [address] [id number] [place] [address]- 9926 17 Mar, 2011 [facility] [place] [facility] [address] [id number] [place] [address] 2546 Mar, [facility] [place] [facility] [address] [id number] [place] [address]- 6756 31 Feb, 2011 [facility] [place] [facility] [address] [id number] [place] [address] 2546 26 Feb, 2011 [facility] [place] [facility] [address] [id number] [place] [address]- 5573 Feb, [facility] [place] [facility] [address] [id number] [place] [address]- 4417 20 Feb, 2011 [facility] [place] [facility] [address] [id number] [place] [address]- 8363 13 Feb, 2011 [facility] [place] [facility] [address] [id number] [place] [address]- 1840 28 Apr, 2010 [facility] [place] [facility] [address] [id number] [place] [address] 2546 22 Apr, 2010 [facility] [place] [facility] [address] [facility] [id number] [place] [address] 254 16 Apr, 2010 [facility] [place] [facility] [address] [id number] [place] [address] 2546 15 Apr, 2010 [facility] [place] [facility] [address] [id number] [place] [address] 2546 15 Apr, 2010 [facility] [place] [facility] [address] [id number] [place] [address] 2546 Apr, [facility] [place] [facility] [address] [id number] [place] [address] 2546 24 Mar, 2010 [facility] [place] [facility] [address] [id number] [place] [address] 2541 17 Mar, 2010 [facility] [id number] [address]- 4121 17 Mar, 2010 [facility] [id number] [place] [address]- 2400 28 Feb, 2010 [facility] [id number] [place] [address]- 6831 Feb, [facility] [id number] [place] [address]- 5751 Feb, [facility] [id number] [place] [address]- 4712 Feb, [facility] [id number] [place] [address] 79[address]- 3961 Dec, [facility] [id number] [place] [address]- 5741 Dec, [facility] [id number] [place] [address] 367[address]- 5626 Oct, [facility] [id number] [place] [address]- 1585 Mar, [facility] [id number] [place] [address]- 2649 Mar, [facility] [id number] [place] [address]- 5635 September, IMMUNIZATIONS No Known Immunizations SOCIAL HISTORY Never Assessed REASON FOR VISIT EMR-[facility] PLAN OF CARE VITAL SIGNS [...]
--- OUTSIDE RECORDS SUMMARY | 2018-09-19 08:59 | XMS REPORT ---
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 Name Role Phone Migration, Doctor Unavailable Unavailable PROBLEMS Type Condition ICD9-CM Code BFG06-[place] Code Onset Dates Condition Status SNOMED Code Problem Hypokalemia E87.6 Active 446044728 Problem Generalized anxiety disorder F41.1 Active 56714689 Problem Pain in right knee M25.561 Active 51612819 Problem Right low back pain, with sciatica presence unspecified M54.5 Active 917188053 Problem Right foot pain M79.671 Active 86457061 Problem UTI symptoms R39.9 Active 38609843 Problem Essential hypertension I10 Active 92967159 Problem Gastroesophageal reflux disease without esophagitis K21.9 Active 629276595 Problem Weight decrease R63.4 Active 313732257 Problem Depression, unspecified depression type F32.9 Active 16578580 Problem Right upper quadrant abdominal pain R10.11 Active 026308265 Problem Tobacco abuse Z72.0 Active 42467510 Problem Insomnia, unspecified type G47.00 Active 932292427 Problem Weight loss R63.4 Active 241326088 Problem Post-traumatic stress disorder, chronic F43.12 Active 03923073 Problem Pulmonary emphysema, unspecified emphysema type J43.9 Active 06777189 Problem Neuropathy G62.9 Active 933591842 Problem Anxiety F41.9 Active 61565447 Problem Other emphysema J43.8 Active 96194744 Problem Other chronic pain G89.29 Active 93986053 Problem Chronic pain G89.29 Active 65429952 Problem Opioid use disorder, moderate, dependence F11.20 Active 92032009 Problem Back pain M54.9 Active 354922722 Problem Bone pain M89.8X9 Active 27685071 Problem Panic attacks F41.0 Active 096270738 Problem Kidney stones N20.0 Active 66925441 Problem Renal calculus, right N20.0 Active 18503131 Problem Generalized abdominal pain R10.84 Active 570766119 ALLERGIES No Information ENCOUNTERS Encounter Location Date Diagnosis [facility] [address] [address] Feb, [facility] [id number] [place] [address] 48825- 9975 Dec, [facility] [id number] [place] [address] 37643- 5049 Dec, [facility] [id number] [place] [address] 62994- 1884 Dec, Medicare welcome exam Z00.00 [facility] [id number] [place] [address] 10433- 4766 17 Nov, 2017 Opioid use disorder, moderate, dependence F11.20 [facility] [id number] [place] [address] 81924- 6983 16 Nov, 2017 Pelvic pain R10.2 ; Acute pyelonephritis N10 and Essential hypertension I10 [facility] [id number] [place] [address] 81559- 6432 28 Oct, 2017 Medicare welcome exam Z00.00 [facility] [id number] [place] [address] 33814- 0331 Oct, Gross hematuria R31.0 ; Urinary tract infection without hematuria, site unspecified N39.0 and Weakness R53.1 [facility] [id number] [place] [address] 20314- 7355 Oct, [facility] [id number] [place] [address] 58219- 9705 Oct, [facility] [id number] [place] [address] 35309- 4620 Oct, Medicare welcome exam Z00.00 [facility] [id number] [place] [address] 25609- 2236 September, Back pain M54.9 and Right anterior knee pain M25.561 [facility] [id number] [place] [address] 28179- 8235 September, [facility] [address], [place] [address] 9207 September, [facility] [id number] [place] [address] 88734- 3934 September, Essential hypertension I10 [facility] [id number] [place] [address] 59495- 2131 September, [facility] [id number] [place] [address] 04664- 4840 September, RLQ abdominal pain R10.31 ; Low back pain M54.5 and Other chronic pain G89.29 [facility] [id number] [place] [address] 41546- 1114 Aug, Medicare welcome exam Z00.00 [facility] [id number] [place] [address] 57027- 9462 Aug, [facility] [id number] [place] [address] 51941- 5552 Aug, Acute pyelonephritis N10 and Medicare welcome exam Z00.00 [facility] [id number] [place] [address] 71785 -0505 Aug, Dysuria R30.0 and Acute pyelonephritis N10 [facility] [address] [address] 4288 Aug, [facility] [id number] [place] [address] 70717- 2396 Aug, [facility] [id number] [place] [address] 56114- 2262 Aug, [facility] [id number] [place] [address] 71299- 9123 Aug, [facility] [address] [address] 3974 Jul, [facility] [id number] [place] [address] 27772- 5288 Jul, Renal calculus, right N20.0 and Medicare welcome exam Z00.00 [facility] [id number] [place] [address] 81086 -7280 Jul, Dysuria R30.0 and Renal calculus, right N20.0 [facility] [id number] [place] [address] 58950- 5768 Jul, Medicare welcome exam Z00.00 [facility] [id number] [place] [address] 86883- 0296 Jun, Gastroesophageal reflux disease without esophagitis K21.9 and Generalized abdominal pain R10.84 [facility] [id number] [place] [address] 70278- 7812 Jun, Medicare welcome exam Z00.00 [facility] [id number] [place] [address] 25682- 7469 Jun, [facility] [id number] [place] [address] 78012- 1779 Jun, Medicare welcome exam Z00.00 and Encounter for screening mammogram for malignant neoplasm of breast Z12.31 [facility] [id number] [place] [address] 95557- 5839 Jun, Chronic pain G89.29 [facility] [id number] [place] [address] 84354- 5246 May, [facility] [id number] [place] [address] 04753- 0664 May, Pelvic pain R10.2 [facility] [id number] [place] [address] 18730- 5484 May, Pelvic pain R10.2 [facility] [id number] [place] [address] 28946 -3679 May, Renal calculus, right N20.0 [facility] [id number] [place] [address] 75259- 7339 May, Hematuria, unspecified type R31.9 and Nephrolithiasis N20.0 [facility] [id number] [place] [address] 33217 -4292 May, Dysuria R30.0 and Nephrolithiasis N20.0 [facility] [id number] [place] [address] 56774- 1325 May, [facility] [id number] [place] [address] 10600 -9872 May, Abdominal pain R10.9 and Kidney stone N20.0 [facility] [id number] [place] [address] 38696- 5925 May, [facility] [id number] [place] [address] 64098- 2710 May, Chronic pain G89.29 and Panic attacks F41.0 [facility] [id number] [place] [address] 60381- 8748 May, Urinary tract infection without hematuria, site unspecified N39.0 [facility] [id number] [place] [address] 07042- 1616 Apr, Right lower quadrant abdominal pain R10.31 and Abnormal serum lipase level R74.8 [facility] [id number] [place] [address] 06530- 2791 Apr, Recurrent urinary tract infection N39.0 [facility] [id number] [place] [address] 42867- 5079 Apr, UTI symptoms R39.9 ; Recurrent urinary tract infection N39.0 and Pelvic pain R10.2 [facility] [id number] [place] [address] 39097- 5451 Apr, Chronic pain G89.29 and Panic attacks F41.0 [facility] [id number] [place] [address] 28289- 1951 Apr, Dysuria R30.0 [facility] [id number] [place] [address] 40847- 0559 Apr, [facility] [id number] [place] [address] 03275- 1285 Apr, Dysuria R30.0 and Urinary tract infection without hematuria , site unspecified N39.0 [facility] [id number] [place] [address] 53500- 4315 Mar, UTI symptoms R39.9 [facility] [id number] [place] [address] 36574- 8315 Mar, [facility] [id number] [place] [address] 96410- 5437 Mar, Panic attacks F41.0 and Chronic pain G89.29 [facility] [address] 65706- 9045 Mar, [facility] [id number] [place] [address] 97148- 3597 Mar, Dysuria R30.0 [facility] [id number] [place] [address] 12251- 0233 Mar, Dysuria R30.0 [facility] [id number] [place] [address] 32262- 3079 Feb, Chronic pain G89.29 ; Shortness of breath R06.02 ; Weight loss R63.4 ; Encounter for immunization Z23 ; Bone pain M89.8X9 ; Right anterior knee pain M25.561 and Cough R05 [facility] [id number] [place] [address] 86580- 5875 Feb, Shortness of breath R06.02 [facility] [id number] [place] [address] 54043- 3226 Feb, [facility] [id number] [place] [address] 37497- 1346 Feb, Panic attacks F41.0 and Chronic pain G89.29 [facility] [address] 04431- 7761 Feb, [facility] [address] 95231- 3653 04 Feb, 2017 Panic attacks F41.0 ; Shortness of breath R06.02 and Encounter for immunization Z23 [facility] [address] 02765- 0783 Jan, [facility] [address] 21973- 2906 15 Jan, 2017 Anxiety F41.9 and Chronic pain G89.29 [facility] [address] 83447- 5839 Dec, Anxiety F41.9 and Chronic pain G89.29 [facility] [address] 45561- 9686 Nov, Chronic pain G89.29 [facility] [address] 75897- 7609 Nov, Anxiety F41.9 [facility] [address] 80590- 6388 Nov, Chronic pain G89.29 ; Essential hypertension I10 and Other emphysema J43.8 [facility] [id number] [place] [address] 26718- 4086 Oct, Anxiety F41.9 [facility] [address] 79194- 0019 Oct, [facility] [address] 83876- 2149 Oct, Chronic pain G89.29 [facility] [address] 98474- 4895 September, Recurrent UTI N39.0 ; Neuropathy G62.9 and Anxiety F41.9 [facility] [id number] [place] [address] 16816- 6933 September, [facility] [id number] [place] [address] 13041- 9072 September, Chronic pain G89.29 [facility] [id number] [place] [address] 44830- 1247 September, [facility] [address] 63574- 6605 Aug, Post-traumatic stress disorder, chronic F43.12 ; Chronic urinary tract infection N39.0 ; Gastroesophageal reflux disease without esophagitis K21.9 ; Chronic pain G89.29 ; Essential hypertension I10 and Tobacco abuse Z72.0 [facility] [id number] [place] [address] 09941 -9229 Aug, [facility] [address] 58009- 3070 Aug, Chronic pain G89.29 [facility] [address] 32026- 3727 Aug, Insomnia, unspecified type G47.00 [facility] [id number] [place] [address] 45654- 3099 Aug, [facility] [id number] [place] [address] 93274- 3720 Jul, Chronic pain G89.29 [facility] [id number] [place] [address] 03037- 0083 Jul, [facility] [address] 38881- 4686 Jul, [facility] [id number] [place] [address] 00511- 5530 Jul, [facility] [address] 16111- 4129 15 Jul, 2016 Recurrent UTI (urinary tract infection) N39.0 [facility] [id number] [place] [address] 65688- 8246 14 Jul, 2016 [facility] [id number] [place] [address] 25315- 4272 27 Jun, 2016 Chronic pain G89.29 [facility] [id number] [place] [address] 77557- 1383 17 Jun, 2016 [facility] [id number] [place] [address] 32114- 3259 Jun, [facility] [id number] [place] [address] 86415- 6604 May, Chronic pain G89.29 [facility] [id number] [place] [address] 54709- 2782 May, Weight loss R63.4 and Shortness of breath R06.02 [facility] [id number] [place] [address] 88936- 7882 May, Chronic pain G89.29 ; Weight loss R63.4 and Tobacco abuse Z72.0 [facility] [id number] [place] [address] 42044- 2706 May, [facility] [id number] [place] [address] 37599- 5366 May, Hypoxia R09.02 [facility] [id number] [place] [address] 15918- 9258 May, [facility] [id number] [place] [address] 35780- 7526 May, Pulmonary emphysema, unspecified emphysema type J43.9 [facility] [id number] [place] [address] 85550 -8549 May, [facility] [id number] [place] [address] 40534- 8940 May, [facility] [id number] [place] [address] 92376- 0606 May, [facility] [address] 93559- 6863 May, Chronic pain G89.29 ; Encounter for immunization Z23 ; Right anterior knee pain M25.561 and Cough R05 [facility] [address] 12925- 5763 Apr, Chronic pain G89.29 [facility] [id number] [place] [address] 95487- 6184 Apr, [facility] [address] 52148- 9352 Apr, Generalized anxiety disorder F41.1 and Depression, unspecified depression type F32.9 [facility] [address] 09957- 5240 Apr, Chronic pain G89.29 ; Hypokalemia E87.6 and Insomnia, unspecified type G47.00 [facility] [id number] [place] [address] 99286- 3263 Apr, [facility] [id number] [place] [address] 17425- 0005 Apr, Chronic pain G89.29 [facility] [id number] [place] [address] 44704- 2209 Apr, [facility] [id number] [place] [address] 12841- 2023 Mar, [facility] [id number] [place] [address] 23532- 0568 Mar, Insomnia, unspecified type G47.00 [facility] [id number] [place] [address] 86068- 3103 Mar, Chronic pain G89.29 [facility] [id number] [place] [address] 06282- 6101 Mar, [facility] [address], [place] [address]- 9393 Feb, [facility] [address], [place] [address]- 2188 Feb, [facility] [id number] [place] [address] 51405- 3409 Feb, [facility] [id number] [place] [address] 05779- 8228 Feb, [facility] [id number] [place] [address] 25930- 2560 Feb, [facility] [id number] [place] [address] 59788- 8414 29 Jan, 2016 [facility] [id number] [place] [address] 57677- 9102 26 Jan, 2015 [facility] [address] [address]- 6557 20 Jan, 2015 [facility] [id number] [place] [address] 20875- 4887 13 Jan, 2015 [facility] [address] [address]- 0404 12 Jan, 2016 [facility] [id number] [place] [address] 49582- 7469 07 Jan, 2015 Chronic pain G89.29 [facility] [address] [address]- 5507 Jan, 2015 Chronic pain G89.29 and Fibromyalgia M79.7 [facility] [address] [address]- 3892 Dec, Depression, unspecified depression type F32.9 and Generalized anxiety disorder 300.02 [facility] [address] [address]- 4953 Dec, Dysthymia F34.1 ; Insomnia, unspecified type G47.00 and Chronic pain G89.29 [facility] [address] [facility] [id number] [place] [address] 61774- 6668 Dec, Chronic pain G89.29 [facility] [id number] [place] [address] 99636 2546 Dec, Insomnia, unspecified type G47.00 [facility] [address] [facility] [id number] [place] [address] 05576 2547 Dec, Fibromyalgia M79.7 and Chronic pain G89.29 [facility] [id number] [place] [address] 00320- 0036 Dec, [facility] [id number] [place] [address] 38171 2546 Dec, [facility] [id number] [place] [address] 56136- 2559 Dec, [facility] [id number] [place] [address] 04756 2546 Dec, [facility] [id number] [place] [address] 07307- 9501 Dec, Chronic pain G89.29 [facility] [id number] [place] [address] 80575 2545 Dec, [facility] [id number] [place] [address] 84479 254 Dec, [facility] [id number] [place] [address] 27298 2546 Dec, [facility] [id number] [place] [address] 82312 254 Dec, Chronic pain G89.29 and Dysthymia F34.1 [facility] [id number] [place] [address] 95651 2545 Nov, [facility] [id number] [place] [address] 22276- 5333 Nov, Hypokalemia E87.6 and Chronic pain G89.29 [facility] [facility] [address] 40966- 1898 Nov, Back pain M54.9 and Pain in right knee M25.561 [place] [facility] [address] 16481- 6687 Nov, [facility] [address] 03692- 5851 Nov, Chronic pain G89.29 [place] [facility] [address] 91850- 4215 Nov, Chronic pain G89.29 ; Weight loss R63.4 ; Bone pain M89.8X9 and Insomnia, unspecified type G47.00 [place] [address] 60625- 2474 Nov, Chronic pain G89.29 [place] [address] 15310- 3281 Nov, Chronic pain G89.29 [place] [address] 88268- 6670 30 Oct, 2015 Chronic pain G89.29 [place] [address] [place] [id number] [place] [address] 67677- 4701 Oct, UTI symptoms R39.9 [facility] [address] [place] [id number] [place] [address] 42213- 4278 27 Oct, 2015 Chronic pain G89.29 [place] [address] 52556- 4506 20 Oct, 2015 Chronic pain G89.29 [place] [address] [place] [id number] [place] [address] 63430- 1320 13 Oct, 2015 Chronic pain G89.29 [place] [address] 14122- 9934 Oct, Right upper quadrant abdominal pain R10.11 [facility] [id number] [address] Oct, Chronic pain G89.29 [facility] [id number] [address] Oct, [facility] [id number] [place] [address] 93242- 1008 September, Chronic pain G89.29 [facility] [id number] [place] [address] 30586- 7690 September, Dysuria R30.0 and Urinary tract infection without hematuria , site unspecified N39.0 [facility] [id number] [place] [address] 03470- 6382 September, [facility] [address] [place] [id number] [place] [address] 16571- 6314 September, Dysuria R30.0 [facility] [id number] [place] [address] 58920- 1371 September, Chronic pain G89.29 [facility] [id number] [place] [address] 90782- 8938 September, Chronic pain G89.29 and Essential hypertension I10 [facility] [id number] [address] September, [facility] [id number] [place] [address] 06779- 3558 September, [facility] [id number] [place] [address] 81197- 3867 September, [facility] [id number] [place] [address] 82766- 2690 Aug, UTI symptoms R39.9 [facility] [address] [address] 6238 Aug, Dysuria R30.0 [facility] [address] [address] 6858 Aug, [facility] [id number] [place] [address] 21521- 5612 Aug, [facility] [id number] [place] [address] 91218- 4614 Aug, [facility] [id number] [place] [address] 56686- 4967 Aug, Chronic pain G89.29 [facility] [id number] [place] [address] 05455- 5540 Aug, Dysthymia F34.1 [facility] [id number] [place] [address] 35042- 6221 Aug, Conjunctivitis, unspecified conjunctivitis type, unspecified laterality H10.9 [facility] [id number] [place] [address] 47673- 9237 Jul, Chronic pain G89.29 ; Back pain M54.9 ; Tobacco abuse Z72.0 and Weight decrease R63.4 [facility] [id number] [place] [address] 15524- 5788 Jul, [facility] [id number] [place] [address] 55269- 5448 Jul, [facility] [id number] [place] [address] 30603- 0887 24 Jul, 2015 Chronic pain G89.29 [facility] [address] [address] 4550 Jul, [facility] [id number] [place] [address] 20180- 9308 Jul, [facility] [id number] [place] [address] 07075- 4313 Jul, [facility] [id number] [place] [address] 07645- 8409 17 Jul, 2015 [facility] [address] [address] 1985 17 Jul, 2015 Chronic pain G89.29 [facility] [address] [address]- 5118 16 Jul, 2015 Chronic pain G89.29 [facility] [id number] [place] [address] 18369- 7069 15 Jul, 2015 [facility] [id number] [place] [address] 40047- 3245 Jul, [facility] [id number] [place] [address] 81840- 6143 Jul, [facility] [id number] [place] [address] 60364- 5592 Jul, [facility] [id number] [place] [address] 12855- 9278 Jun, [facility] [id number] [place] [address] 99587- 7024 Jun, Depression, unspecified depression type F32.9 [facility] [id number] [place] [address] 24266- 3885 Jun, Pain in right knee M25.561 [facility] [id number] [place] [address] 46023- 2879 24 Jun, 2015 Chronic pain G89.29 ; Back pain M54.9 ; Bone pain M89.8X9 and Weight loss R63.4 [facility] [id number] [place] [address] 15728- 9853 Jun, [facility] [id number] [place] [address] 27598- 6345 May, [facility] [address], [place] [address]- 9214 May, UTI symptoms R39.9 ; Pain in right knee M25.561 ; Right low back pain, with sciatica presence unspecified M54.5 ; Right foot pain M79.671 ; Hypokalemia E87.6 and Screening, lipid Z13.220 [facility] [id number] [place] [address] 37736- 3608 May, [facility] [id number] [place] [address] 34569- 4668 May, [facility] [id number] [place] [address] 92883- 7888 Mar, [facility] [id number] [place] [address] 62126- 6500 Mar, [facility] [id number] [place] [address] 58775- 8498 Mar, Hypokalemia E87.6 [facility] [address] 7[address]01- 7734 Mar, Pain in right leg M79.604 ; Encounter for immunization Z23 ; Pain in right knee M25.561 and Hypokalemia E87.6 [facility] [id number] [place] [address] 08128- 9360 Jan, [facility] [id number] [place] [address] 89289- 7654 Jan, [facility] [id number] [place] [address] 07176 2547 Jan, Abdominal pain, generalized 789.07 [facility] [id number] [place] [address] 37756 2541 Jan, Abdominal pain, generalized 789.07 [facility] [id number] [place] [address] 10052- 7149 Dec, [facility] [id number] [place] [address] 83701- 6670 Dec, [facility] [address] [address]- 6546 Dec, [facility] [id number] [place] [address] 56118- 5946 Nov, Hallux valgus 735.0 and Hammertoe 735.4 [facility] [address] [address]- 7706 Nov, [facility] [id number] [place] [address] 26901- 3829 Nov, Hallux valgus 735.0 and Hammer toe 735.4 [facility] [id number] [place] [address] 03651- 2936 Oct, [facility] [id number] [place] [address] 14174- 0736 Oct, [facility] [id number] [place] [address] 19386- 8248 Oct, Pre-op evaluation V72.84 [facility] [address], [place] [address]- 0848 Oct, [facility] [id number] [place] [address] 33816- 8283 Oct, [facility] [address], [place] [address]- 8794 September, [facility] [address], [place] [address] 2546 September, [facility] [id number] [address]- 5392 September, Hallux valgus (acquired) 735.0 and Other hammer toe ( acquired) 735.4 [facility] [address] [address]- 2546 Aug, [facility] [id number] [place] [address] 83469- 8271 Aug, [facility] [place] [facility] [address] [id number] [place] [address]- 3596 Jul, [facility] [place] [facility] [address] [id number] [place] [address]- 1784 Jul, [facility] [place] [facility] [address] [id number] [place] [address]- 8948 Jul, [facility] [place] [facility] [address] [id number] [place] [address]- 7157 Jul, [facility] [place] [facility] [address] [id number] [place] [address]- 7820 Jul, [facility] [place] [facility] [address] [id number] [place] [address]- 3476 Jul, [facility] [place] [facility] [address] [facility] [id number] [place] [address]- 4947 Jul, [facility] [place] [facility] [address] [id number] [place] [address]- 2625 Jul, [facility] [place] [facility] [address] [id number] [place] [address]- 9833 Jun, [facility] [place] [facility] [address] [facility] [id number] [place] [address]- 4458 Jun, [facility] [place] [facility] [address] [id number] [place] [address]- 1093 Jun, 2014 [facility] [place] [facility] [address] [id number] [place] [address]- 8073 Jun, [facility] [place] [facility] [address] [id number] [place] [address]- 2721 Jun, [facility] [place] [facility] [address] [id number] [place] [address]- 3084 Jun, [facility] [place] [facility] [address] [facility] [id number] [place] [address]- 8487 Jun, [facility] [place] [facility] [address] [id number] [place] [address]- 0266 Jun, [facility] [address] [id number] [place] [address]- 2464 Jun, [facility] [place] [facility] [address] [id number] [place] [address]- 8186 Jun, [facility] [place] [facility] [address] [id number] [place] [address]- 3502 May, [facility] [place] [facility] [address] [id number] [place] [address]- 4213 May, [facility] [place] [facility] [address] [id number] [place] [address]- 7053 May, [facility] [place] [facility] [address] [id number] [place] [address]- 3246 May, [facility] [place] [facility] [address] [id number] [place] [address]- 2925 May, [facility] [address] [id number] [place] [address]- 4128 May, [facility] [place] [facility] [address] [id number] [place] [address]- 1400 May, [facility] [place] [facility] [address] [id number] [place] [address]- 2353 May, [facility] [place] [facility] [address] [id number] [place] [address]- 3812 May, [facility] [place] [facility] [address] [id number] [place] [address]- 6672 May, [facility] [place] [facility] [address] [id number] [place] [address]- 8280 May, [facility] [place] [facility] [address] [id number] [place] [address]- 2996 May, [facility] [place] [facility] [address] [id number] [place] [address]- 3489 May, [facility] [place] [facility] [address] [id number] [place] [address]- 9676 May, [facility] [place] [facility] [address] [id number] [place] [address]- 3249 May, [facility] [place] [facility] [address] [id number] [place] [address]- 9830 May, [facility] [place] [facility] [address] [id number] [place] [address]- 5950 May, [facility] [place] [facility] [address] [id number] [place] [address]- 8144 May, [facility] [place] [facility] [address] [id number] [place] [address]- 2344 Apr, [facility] [place] [facility] [address] [id number] [place] [address]- 7052 Apr, [facility] [place] [facility] [address] [id number] [place] [address]- 8766 Apr, [facility] [place] [facility] [address] [id number] [place] [address]- 0074 Apr, [facility] [place] [facility] [address] [id number] [place] [address]- 4146 Apr, [facility] [place] [facility] [address] [id number] [place] [address]- 4474 Apr, [facility] [place] [facility] [address] [id number] [place] [address]- 6322 Apr, [facility] [place] [facility] [address] [id number] [place] [address]- 6114 Apr, [facility] [place] [facility] [address] [id number] [place] [address]- 9871 Apr, [facility] [place] [facility] [address] [id number] [place] [address]- 5330 Mar, [facility] [place] [facility] [address] [id number] [place] [address]- 1378 Mar, [facility] [place] [facility] [address] [id number] [place] [address]- 3804 Mar, [facility] [place] [facility] [address] [id number] [place] [address]- 1997 Mar, [facility] [place] [facility] [address] [id number] [place] [address]- 8898 Mar, [facility] [place] [facility] [address] [id number] [place] [address]- 4066 Feb, [facility] [place] [facility] [address] [id number] [place] [address]- 8186 Feb, [facility] [place] [facility] [address] [id number] [place] [address]- 0936 Feb, [facility] [place] [facility] [address] [id number] [place] [address]- 5421 Feb, [facility] [place] [facility] [address] [id number] [place] [address]- 0959 Feb, [facility] [place] [facility] [address] [id number] [place] [address]- 0138 Feb, [facility] [place] [facility] [address] [id number] [place] [address]- 0295 Feb, [facility] [place] [facility] [address] [id number] [place] [address]- 8199 Feb, [facility] [place] [facility] [address] [id number] [address]- 7933 Feb, [facility] [place] [facility] [address] [id number] 9959 Feb, [facility] [place] [facility] [address] [id number], [place] [address]- 2648 Feb, [facility] [place] [facility] [address] [id number] 8919 Feb, [facility] [place] [facility] [address] [id number] [place] [address]- 7366 07 Feb, 2013 [facility] [place] [facility] [address] [id number] [place] [address]- 3690 Feb, [facility] [place] [facility] [address] [id number] [place] [address]- 8051 Feb, 2013 [facility] [place] [facility] [address] [id number] [place] [address]- 8562 Feb, [facility] [place] [facility] [address] [id number] [place] [address]- 5114 Jan, 2013 [facility] [place] [facility] [address] [id number] [place] [address]- 7577 23 Jan, 2013 [facility] [place] [facility] [address] [id number] [place] [address]- 7944 20 Jan, 2014 [facility] [place] [facility] [address] [id number] [place] [address]- 8644 19 Jan, 2013 [facility] [place] [facility] [address] [id number] [place] [address]- 9727 11 Jan, 2014 [facility] [place] [facility] [address] [id number] [place] [address]- 4728 Jan, [facility] [place] [facility] [address] [id number] [place] [address]- 1196 Jan, [facility] [place] [facility] [address] [id number] [place] [address]- 6700 Jan, 2013 [facility] [place] [facility] [address] [id number] [place] [address]- 3732 Dec, [facility] [place] [facility] [address] [id number] [place] [address]- 5546 Dec, [facility] [place] [facility] [address] [id number] [place] [address]- 0463 Nov, [facility] [place] [facility] [address] [id number] [place] [address]- 8215 Nov, [facility] [place] [facility] [address] [id number] [place] [address]- 3806 Nov, [facility] [place] [facility] [address] [id number] [place] [address]- 0082 Nov, [facility] [place] [facility] [address] [id number] [place] [address]- 5946 Nov, [facility] [place] [facility] [address] [id number] [place] [address]- 5881 Nov, [facility] [place] [facility] [address] [id number] [place] [address]- 7152 Nov, [facility] [place] [facility] [address] [id number] [place] [address]- 5925 Nov, [facility] [place] [facility] [address] [id number] [place] [address]- 5298 Nov, [facility] [place] [facility] [address] [id number] [place] [address]- 7014 Oct, [facility] [place] [facility] [address] [id number] [place] [address]- 0776 Oct, [facility] [place] [facility] [address] [id number] [place] [address]- 9801 Oct, [facility] [place] [facility] [address] [id number] [place] [address]- 5943 Oct, [facility] [place] [facility] [address] [id number] [place] [address]- 2769 Oct, [facility] [place] [facility] [address] [id number] [place] [address]- 6811 Oct, [facility] [place] [facility] [address] [id number] [place] [address]- 1763 September, [facility] [place] [facility] [address] [id number] [place] [address]- 1324 September, [facility] [place] [facility] [address] [id number] [place] [address]- 7902 September, [facility] [address] [id number] [place] 8507 September, [facility] [address] [id number] [place] [address]- 7547 September, [facility] [address] [id number] [place] [address]- 0472 September, [facility] [address] [id number] [place] [address]- 2948 September, [facility] [address] [id number] [place] 8516 September, [facility] [address] [id number] [place] [address]- 0509 September, [facility] [address] [id number] [place] [address]- 2685 September, [facility] [address] [id number] [place] [address]- 9616 September, [facility] [address] [id number] [place] [address]- 4994 September, [facility] [address] [id number] [place] [address]- 7695 September, [facility] [address] [id number] [place] [address]- 3068 September, [facility] [address] [id number] [place] [address]- 8967 September, [facility] [place] [facility] [address] [id number] [place] [address] September, [facility] [place] [facility] [address] [id number] [place] 1763 September, [facility] [address] [id number] [place] [address]- 5884 September, [facility] [place] [facility] [address] [id number] [place] [address]- 9552 September, [facility] [place] [facility] [address] [id number] [place] [address]- 8573 September, [facility] [place] [facility] [address] [id number] [place] [address]- 1506 Aug, [facility] [place] [facility] [address] [id number] [place] [address]- 2386 Aug, [facility] [place] [facility] [address] [id number] [place] [address]- 9551 Aug, [facility] [place] [facility] [address] [id number] [place] [address]- 3408 Aug, [facility] [place] [facility] [address] [id number] [place] [address]- 0273 Aug, [facility] [place] [facility] [address] [id number] [place] [address]- 2079 Aug, [facility] [place] [facility] [address] [id number] [place] [address]- 7715 Aug, [facility] [place] [facility] [address] [id number] [place] [address]- 2695 Aug, [facility] [place] [facility] [address] [id number] [place] [address]- 9208 Aug, [facility] [place] [facility] [address] [id number] [place] [address]- 5669 Aug, [facility] [place] [facility] [address] [id number] [place] [address]- 0922 Aug, [facility] [place] [facility] [address] [id number] [place] [address] Aug, [facility] [place] [facility] [address] [id number] [place] [address] Aug, [facility] [place] [facility] [address] [id number] [place] [address] Aug, [facility] [place] [facility] [address] [id number] [place] [address] Aug, [facility] [place] [facility] [address] [id number] [place] [address] Jul, [facility] [place] [facility] [address] [id number] [place] [address] Jul, [facility] [place] [facility] [address] [id number] [place] [address] Jul, [facility] [place] [facility] [address] [id number] [place] [address] Jul, [facility] [place] [facility] [address] [id number] [place] [address] Jul, [facility] [place] [facility] [address] [id number] [place] [address] Jul, [facility] [place] [facility] [address] [id number] [place] [address] Jul, [facility] [place] [facility] [address] [id number] [place] [address] Jul, [facility] [place] [facility] [address] [id number] [place] [address] Jul, [facility] [place] [facility] [address] [id number] [place] [address] Jul, [facility] [place] [facility] [address] [id number] [place] [address]- [address]134 Jul, [facility] [place] [facility] [address] [id number] [place] [address]- [address]253 Jul, [facility] [place] [facility] [address] [id number] [place] [address]- [address] Jul, [facility] [place] [facility] [address] [id number] [place] [address] 2010 Jul, [facility] [place] [facility] [address] [id number] [place] [address]- [address] Jul, [facility] [place] [facility] [address] [id number] [place] [address]- [address]285 Jun, [facility] [place] [facility] [address] [id number] [place] [address]- [address] Jun, [facility] [place] [facility] [address] [id number] [place] [address]- [address] Jun, [facility] [place] [facility] [address] [id number] [place] [address]- [address] Jun, [facility] [place] [facility] [address] [id number] [place] [address]- [address]17 Jun, [facility] [place] [facility] [address] [id number] [place] [address]- 6564 Jun, [facility] [place] [facility] [address] [id number] [place] [address]- 7410 May, [facility] [place] [facility] [address] [id number] [place] [address] May, [facility] [place] [facility] [address] [id number] [place] [address]- [address] May, [facility] [place] [facility] [address] [id number] [place] [address]- [address] May, [facility] [place] [facility] [address] [id number] [place] [address] May, [facility] [place] [facility] [address] [id number] [place] [address] May, [facility] [place] [facility] [address] [id number] [place] [address]- [address] May, [facility] [place] [facility] [address] [id number] [place] [address]- 8378 May, [facility] [place] [facility] [address] [id number] [place] [address]- 2099 May, [facility] [address] [id number] [place] [address] 8934 May, [facility] [place] [facility] [address] [id number] [place] [address]- 66[address] May, [facility] [place] [facility] [address] [id number] [place] [address]- 5413 May, [facility] [place] [facility] [address] [id number] [place] [address]- 3115 May, [facility] [place] [facility] [address] [id number] [place] [address]- [address] May, [facility] [place] [facility] [address] [id number] [place] [address] 49[address] May, [facility] [place] [facility] [address] [id number] [place] [address]- 35[address] Apr, [facility] [place] [facility] [address] [id number] [place] [address]- [address]154 Apr, [facility] [place] [facility] [address] [id number] [place] [address]- 94[address] Apr, [facility] [place] [facility] [address] [id number] [place] [address]- [address] Apr, [facility] [place] [facility] [address] [id number] [place] [address] 1982 Apr, [facility] [place] [facility] [address] [id number] [place] [address]- [address] Apr, [facility] [place] [facility] [address] [id number] [place] [address]- 1640 Apr, [facility] [place] [facility] [address] [id number] [place] [address]- [address] Apr, [facility] [place] [facility] [address] [id number] [place] [address]- 69[address] Apr, [facility] [place] [facility] [address] [id number] [place] [address]- [address] Apr, [facility] [address] [id number] [place] [address]- [address] Mar, [facility] [address] [id number] [place] [address]- [address] Mar, [facility] [address] [id number] [place] [address]- 12[address] Mar, [facility] [address] [id number] [place] [address]- 8784 Mar, [facility] [address] [id number] [place] [address]- 9682 Mar, [facility] [address] [id number] [place] [address]- [address] Mar, [facility] [address] [id number] [place] [address]- [address] Mar, [facility] [address] [id number] [place] [address]- [address] Mar, [facility] [address] [id number] [place] [address]- [address] Mar, [facility] - [facility] [address] [id number] [place] [address] Mar, [facility] [address] [id number] [place] [address] Mar, [facility] [address] [id number] [place] [address] 3[address] Mar, [facility] [place] [facility] [address] [id number] [place] [address] 59[address] Mar, [facility] [place] [facility] [address] [id number] [place] [address] 2490 Mar, [facility] [address] [id number] [place] [address]362 Mar, [facility] [place] [facility] [address] [id number] [place] [address] 6931 18 Mar, 2013 [facility] [place] [facility] [address] [id number] [place] [address] 8133 Mar, [facility] [place] [facility] [address] [id number] [place] [address]- 5871 Mar, [facility] [place] [facility] [address] [id number] [place] [address] 9041 Mar, [facility] [place] [facility] [address] [id number] [place] [address]29 Mar, [facility] [place] [facility] [address] [id number] [place] [address] 4649 Mar, [facility] [place] [facility] [address] [id number] [place] [address]- 0457 Mar, [facility] [place] [facility] [address] [id number], [place] [address] Mar, [facility] [place] [facility] [address] [id number], [place] [address] 04[address] Feb, [facility] [place] [facility] [address] [id number], [place] [address] 2085 Feb, [facility] [place] [facility] [address] [id number], [place] [address]- 4[address] Feb, [facility] [place] [facility] [address] [id number], [place] [address] 5[address] 16 Feb, 2013 [facility] [place] [facility] [address] [id number], [place] [address] 15 Feb, 2013 [facility] [place] [facility] [address] [id number], [place] [address] 8027 Feb, [facility] [place] [facility] [address] [facility] [id number], [place] [address]- 0710 Feb, [facility] [place] [facility] [address] [id number], [place] [address] 4980 Feb, [facility] [address] [id number] [place] [address]- 2037 Feb, [facility] [place] [facility] [address] [id number] [place] [address]- 4577 Feb, [facility] [place] [facility] [address] [id number] [place] [address]- 3829 30 Jan, 2013 [facility] [place] [facility] [address] [id number] [place] [address]- 6096 26 Jan, 2013 [facility] [place] [facility] [address] [id number] [place] [address]- 8281 24 Jan, 2013 [facility] [place] [facility] [address] [id number] [place] [address]- 8547 23 Jan, 2013 [facility] [place] [facility] [address] [id number] [place] [address]- 0942 17 Jan, 2013 [facility] [place] [facility] [address] [id number] [place] [address]- 8040 Dec, [facility] [place] [facility] [address] [id number] [place] [address]- 5473 Dec, [facility] [place] [facility] [address] [id number] [place] [address]- 8028 Dec, [facility] [place] [facility] [address] [id number] [place] [address]- 6315 15 Dec, 2012 [facility] [place] [facility] [address] [id number] [place] [address]- 4879 14 Dec, 2012 [facility] [place] [facility] [address] [id number] [place] [address]- 7913 Dec, [facility] [place] [facility] [address] [id number] [place] [address]- 1677 Dec, [facility] [place] [facility] [address] [id number] [place] [address]- 1371 Nov, [facility] [place] [facility] [address] [id number] [place] [address]- 2546 16 Nov, 2012 [facility] [address] [id number] [place] [address]- 7486 15 Nov, 2012 [facility] [place] [facility] [address] [id number] [place] [address]- 2546 05 Nov, 2012 [facility] [address] [id number] [place] [address]- 2546 Nov, [facility] [place] [facility] [address] [id number] [place] [address]- 4726 Oct, [facility] [address] [id number] [place] [address]- 1266 Oct, [facility] [place] [facility] [address] [id number] [place] [address]- 2546 Oct, [facility] [address] [id number] [place] [address]- 6806 September, [facility] [address] [id number] [place] [address]- 0428 September, [facility] [address] [id number] [place] [address]- 6856 September, [facility] [address] [id number] [place] [address]- 67[address] September, [facility] [place] [facility] [address] [id number] [place] [address]- 2146 September, [facility] [address] [id number] [place] [address]- 2546 September, [facility] [place] [facility] [address] [id number] [place] [address]- 2546 September, [facility] [place] [facility] [address] [id number] [place] [address]- 2546 Aug, [facility] [place] [facility] [address] [id number] [place] [address]- 7260 23 Aug, 2012 [facility] [place] [facility] [address] [id number] [place] [address]- 2127 11 Aug, 2012 [facility] [place] [facility] [address] [id number] [place] [address]- 9768 29 Jul, 2012 [facility] [place] [facility] [address] [id number] [place] [address]- 9593 27 Jul, 2012 [facility] [place] [facility] [address] [id number] [place] [address]- 5253 26 Jul, 2012 [facility] [place] [facility] [address] [id number] [place] [address]- 2670 20 Jul, 2012 [facility] [place] [facility] [address] [id number] [place] [address]- 3055 18 Jul, 2012 [facility] [place] [facility] [address] [facility] [id number] [place] [address]- 9440 18 Jul, 2012 [facility] [place] [facility] [address] [id number] [place] [address]- 3153 13 Jul, 2012 [facility] [place] [facility] [address] [id number] [place] [address]- 4677 28 Jun, 2012 [facility] [place] [facility] [address] [facility] [id number] [place] [address]- 8667 27 Jun, 2012 [facility] [place] [facility] [address] [facility] [id number] [place] [address]- 3102 22 Jun, 2012 [facility] [place] [facility] [address] [id number] [place] [address]- 3115 20 Jun, 2012 [facility] [place] [facility] [address] [id number] [place] [address]- 2571 15 Jun, 2012 [facility] [place] [facility] [address] [id number] [place] [address]- 9671 15 Jun, 2012 [facility] [place] [facility] [address] [facility] [id number] [place] [address]- 8023 13 Jun, 2012 [facility] [place] [facility] [address] [id number] [place] [address]- 5756 Jun, [facility] [address] [id number] [place] [address]- 8866 Jun, [facility] [place] [facility] [address] [id number] [place] [address]- 2546 Jun, [facility] [address] [id number] [place] [address]- 0476 May, [facility] [place] [facility] [address] [id number] [place] [address] 2541 May, [facility] [address] [id number] [place] [address]- 7306 May, [facility] [address] [id number] [place] [address]- 0366 May, [facility] [address] [id number] [place] [address]- 4303 May, [facility] [address] [id number] [place] [address]- 6838 May, [facility] [address] [id number] [place] [address]- 7005 31 Apr, 2012 [facility] [address] [id number] [place] [address] 2546 31 Apr, 2012 [facility] [address] [id number] [place] [address] 2546 Apr, [facility] [place] [facility] [address] [id number] [place] [address] 254 28 Apr, 2012 [facility] [place] [facility] [address] [id number] [place] [address] 2546 [address], [address] [facility] [place] [facility] [address] [id number] [place] [address]- 2546 20 Apr, 2012 [facility] [place] [facility] [address] [id number] [place] [address]- 0245 Apr, [facility] [place] [facility] [address] [id number] [place] [address]- 4601 Mar, [facility] [place] [facility] [address] [id number] [place] [address]- 3345 Mar, [facility] [place] [facility] [address] [facility] [id number] [place] [address]- 5610 Mar, [facility] [place] [facility] [address] [id number] [place] [address]- 7210 Mar, [facility] [place] [facility] [address] [id number] [place] [address]- 0503 Mar, [facility] [place] [facility] [address] [id number], [place] [address]- 1087 Mar, [facility] [place] [facility] [address] [id number] [place] [address]- 8367 Mar, [facility] [place] [facility] [address] [id number], [place] [address]- 4657 Mar, [facility] [place] [facility] [address] [id number], [place] [address]- 3921 Mar, [facility] [place] [facility] [address] [id number], [place] [address]- 7260 Mar, [facility] [place] [facility] [address] [id number], [place] [address]- 2008 Mar, [facility] [place] [facility] [address] [id number], [place] [address]- 5666 Mar, [facility] [place] [facility] [address] [id number], [place] [address]- 8721 Mar, [facility] [place] [facility] [address] [facility] [id number], [place] [address]- 7184 Mar, [facility] [place] [facility] [address] [facility] [id number], [place] [address]- 9293 Mar, [facility] [place] [facility] [address] [id number] [place] [address]- 6525 Mar, [facility] [place] [facility] [address] [id number] [place] [address]- 0102 Mar, [facility] [place] [facility] [address] [id number] [place] [address]- 5024 Feb, [facility] [place] [facility] [address] [id number] [place] [address]- 6296 Feb, 2011 [facility] [place] [facility] [address] [id number] [place] [address]- 1303 Feb, [facility] [place] [facility] [address] [id number] [place] [address]- 4143 Feb, [facility] [place] [facility] [address] [id number] [place] [address]- 1097 Feb, [facility] [place] [facility] [address] [id number] [place] [address]- 1587 Feb, [facility] [place] [facility] [address] [id number] [place] [address]- 3599 Feb, [facility] [place] [facility] [address] [id number] [place] [address]- 8120 Feb, [facility] [place] [facility] [address] [facility] [id number] [place] [address]- 9031 Feb, [facility] [place] [facility] [address] [id number] [place] [address]- 1352 Feb, [facility] [place] [facility] [address] [id number] [place] [address]- 1591 Feb, [facility] [place] [facility] [address] [id number] [place] [address]- 3140 27 Jan, 2011 [facility] [place] [facility] [address] [id number] [place] [address]- 1282 25 Jan, 2012 [facility] [place] [facility] [address] [id number] [place] [address]- 3836 13 Jan, 2012 [facility] [place] [facility] [address] [id number] [place] [address]- 2310 12 Jan, 2012 [facility] [place] [facility] [address] [id number] [place] [address]- 0622 Jan, [facility] [place] [facility] [address] [id number] [place] [address]- 4062 Dec, [facility] [place] [facility] [address] [id number] [place] [address]- 0456 Dec, [facility] [place] [facility] [address] [id number] [place] [address]- 7314 Dec, [facility] [place] [facility] [address] [id number] [place] [address]- 7456 Dec, [facility] [place] [facility] [address] [id number] [place] [address]- 4701 Dec, [facility] [place] [facility] [address] [id number] [place] [address]- 5695 Dec, [facility] [place] [facility] [address] [id number] [place] [address]- 0536 Dec, [facility] [place] [facility] [address] [id number] [place] [address]- 8438 Dec, [facility] [place] [facility] [address] [id number] [place] [address]- 4526 Nov, [facility] [place] [facility] [address] [id number] [place] [address]- 2973 Nov, [facility] [place] [facility] [address] [id number] [place] [address]- 1467 Nov, [facility] [place] [facility] [address] [id number] [place] [address]- 2223 Nov, [facility] [place] [facility] [address] [id number] [place] [address]- 6663 Nov, [facility] [place] [facility] [address] [id number] [place] [address]- 8137 Oct, [facility] [address] [id number] [place] 3762 Oct, [facility] [place] [facility] [address] [id number] [place] [address]- 8664 September, [facility] [address] [id number] [place] [address]- 8996 September, [facility] [place] [facility] [address] [id number] [place] [address]- 7069 September, [facility] [address] [id number] [place] [address]- 6696 September, [facility] [place] [facility] [address] [id number] [place] [address]- 0764 September, [facility] [address] [id number] [place] [address]- 4846 September, [facility] [place] [facility] [address] [id number] [place] [address]- 3985 September, [facility] [place] [facility] [address] [id number] [place] [address]- 7990 September, [facility] [place] [facility] [address] [id number] [place] [address]- 6121 September, [facility] [place] [facility] [address] [id number] [place] [address]- 2229 September, [facility] [place] [facility] [address] [id number] [place] [address]- 6407 September, [facility] [place] [facility] [address] [id number] [place] [address]- 9748 September, [facility] [place] [facility] [address] [id number] [place] [address]- 7057 September, [facility] [place] [facility] [address] [id number] [place] [address]- 2797 September, [facility] [place] [facility] [address] [id number] [place] [address]- 7681 24 Aug, 2011 [facility] [address] [id number] [place] [address]- 7398 20 Aug, 2011 [facility] [address] [id number] [place] [address]- 2066 13 Aug, 2011 [facility] [address] [id number] [place] [address]- 7940 11 Aug, 2011 [facility] [address] [id number] [place] [address]- 9853 23 Jul, 2011 [facility] [address] [id number] [place] [address]- 6577 13 Jul, 2011 [facility] [address] [id number] [place] [address]- 7016 13 Jul, 2011 [facility] [address] [id number] [place] [address]- 6117 28 Jun, [address] [facility] [address] [id number] [id number] 26 Jun, 2011 [facility] [address] [id number] [place] [address]- 8198 13 Jun, 2011 [facility] [address] [id number] [place] [address]- 8839 10 Jun, 2011 [facility] [address] [id number] [place] [address]- 9206 07 Jun, 2011 [facility] [address] [id number] [place] [address]- 1706 07 Jun, 2011 [facility] [place] [facility] [address] [id number] [place] [address]- 8616 03 Jun, 2011 [facility] [place] [facility] [address] [id number] [place] [address]- 5786 02 Jun, 2011 [facility] [place] [facility] [address] [id number] [place] [address]- 0977 31 May, 2011 [facility] [address] [id number] [place] [address]- 9007 30 May, 2011 [facility] [address] [id number] [place] [address]- 6796 May, [facility] [address] [id number] [place] [address]- 4032 May, [facility] [address] [id number] [place] [address]- 9683 May, [facility] [address] [id number] [place] [address]- 7949 May, [facility] [address] [id number] [place] [address]- 8006 May, [facility] [address] [id number] [place] [address]- 6826 May, [facility] [place] [facility] [address] [id number] [place] [address]- 2960 May, [facility] [address] [id number] [place] [address]- 2949 May, [facility] [place] [facility] [address] [id number] [place] [address]- 4673 May, [facility] [address] [id number], [place] [address]- 2561 May, [facility] [place] [facility] [address] [id number], [place] [address]- 2589 May, [facility] [place] [facility] [address] [id number] [place] [address]- 3175 May, [facility] [place] [facility] [address] [id number] [place] [address]- 0990 30 Apr, 2011 [facility] [place] [facility] [address] [id number] [place] [address]- 1281 16 Apr, 2011 [facility] [place] [facility] [address] [id number] [place] [address]- 9521 05 Apr, 2011 [facility] [place] [facility] [address] [id number] [place] [address]- 4686 17 Mar, 2011 [facility] [place] [facility] [address] [id number] [place] [address] 2546 Mar, [facility] [place] [facility] [address] [id number] [place] [address]- 9056 31 Feb, 2011 [facility] [place] [facility] [address] [id number] [place] [address] 2546 26 Feb, 2011 [facility] [place] [facility] [address] [id number] [place] [address]- 5893 Feb, [facility] [place] [facility] [address] [id number] [place] [address]- 8323 20 Feb, 2011 [facility] [place] [facility] [address] [id number] [place] [address]- 4786 13 Feb, 2011 [facility] [place] [facility] [address] [id number] [place] [address]- 1038 28 Apr, 2010 [facility] [place] [facility] [address] [id number] [place] [address] 2546 22 Apr, 2010 [facility] [place] [facility] [address] [facility] [id number] [place] [address] 2540 16 Apr, 2010 [facility] [place] [facility] [address] [id number] [place] [address] 15 Apr, 2010 [facility] [place] [facility] [address] [id number] [place] [address] 15 Apr, 2010 [facility] [place] [facility] [address] [id number] [place] [address] Apr, [facility] [place] [facility] [address] [id number] [place] [address] 24 Mar, 2010 [facility] [place] [facility] [address] [id number] [place] [address] 17 Mar, 2010 [facility] [id number] [address] 17 Mar, 2010 [facility] [id number] [address] 28 Feb, 2010 [facility] [id number] [address] Feb, [facility] [id number] [place] [address] Feb, [facility] [id number] [address] Feb, [facility] [id number] [place] [address] Dec, [facility] [id number] [address] Dec, [facility] [id number] [place] [address] Oct, [facility] [id number], [place] [address] Mar, [facility] [id number] [place] [address] Mar, [facility] [id number] [address] September, IMMUNIZATIONS No Known Immunizations SOCIAL HISTORY Never Assessed [place]ASON [place]ISIT [place] [place]
--- OUTSIDE RECORDS SUMMARY | 2018-09-19 09:00 | XMS REPORT ---
Author Author Migration, Doctor Organization [facility] Address Unknown Phone Unavailable Care Team Providers Care Clerk Of Court Name Role Phone Migration, Doctor Unavailable Unavailable PROBLEMS Type Condition ICD9-CM Code CSK11-PX Code Onset Dates Condition Status SNOMED Code Problem Hypokalemia E87.6 Active 541726471 Problem Generalized anxiety disorder F41.1 Active 34128635 Problem Pain in right knee M25.561 Active 69698459 Problem Right low back pain, with sciatica presence unspecified M54.5 Active 156607446 Problem Right foot pain M79.671 Active 63846233 Problem UTI symptoms R39.9 Active 93097312 Problem Essential hypertension I10 Active 22900592 Problem Gastroesophageal reflux disease without esophagitis K21.9 Active 014903867 Problem Weight decrease R63.4 Active 769534400 Problem Depression, unspecified depression type F32.9 Active 31064927 Problem Right upper quadrant abdominal pain R10.11 Active 549967090 Problem Tobacco abuse Z72.0 Active 34746198 Problem Insomnia, unspecified type G47.00 Active 095655498 Problem Weight loss R63.4 Active 841360729 Problem Post-traumatic stress disorder, chronic F43.12 Active 84737218 Problem Pulmonary emphysema, unspecified emphysema type J43.9 Active 00647514 Problem Neuropathy G62.9 Active 643167706 Problem Anxiety F41.9 Active 99887165 Problem Other emphysema J43.8 Active 79326931 Problem Other chronic pain G89.29 Active 57930486 Problem Chronic pain G89.29 Active 36270979 Problem Opioid use disorder, moderate, dependence F11.20 Active 96876540 Problem Back pain M54.9 Active 118974172 Problem Bone pain M89.8X9 Active 76092426 Problem Panic attacks F41.0 Active 613597802 Problem Kidney stones N20.0 Active 89644791 Problem Renal calculus, right N20.0 Active 76137635 Problem Generalized abdominal pain R10.84 Active 605481369 ALLERGIES No Information ENCOUNTERS Encounter Location Date Diagnosis [facility] [address] [address] Feb, [facility] [id number] [place] [address] 30531- 0865 Dec, [facility] [id number] [place] [address] 54009- 0090 Dec, [facility] [id number] [place] [address] 25412- 4759 Dec, Medicare welcome exam Z00.00 [facility] [id number] [place] [address] 61535- 1390 17 Nov, 2017 Opioid use disorder, moderate, dependence F11.20 [facility] [id number] [place] [address] 96603- 0884 16 Nov, 2017 Pelvic pain R10.2 ; Acute pyelonephritis N10 and Essential hypertension I10 [facility] [id number] [place] [address] 62554- 6580 28 Oct, 2017 Medicare welcome exam Z00.00 [facility] [id number] [place] [address] 96168- 0726 Oct, Gross hematuria R31.0 ; Urinary tract infection without hematuria, site unspecified N39.0 and Weakness R53.1 [facility] [id number] [place] [address] 92665- 4567 Oct, [facility] [id number] [place] [address] 02674- 8406 Oct, [facility] [id number] [place] [address] 97294- 2437 Oct, Medicare welcome exam Z00.00 [facility] [id number] [place] [address] 79367- 8652 September, Back pain M54.9 and Right anterior knee pain M25.561 [facility] [id number] [place] [address] 88680- 5495 September, [facility] [address] [address] 1984 September, [facility] [id number] [place] [address] 27244- 2744 September, Essential hypertension I10 [facility] [id number] [place] [address] 30940- 3740 September, [facility] [id number] [place] [address] 99132- 1904 September, RLQ abdominal pain R10.31 ; Low back pain M54.5 and Other chronic pain G89.29 [facility] [id number] [place] [address] 09119- 5749 Aug, Medicare welcome exam Z00.00 [facility] [id number] [place] [address] 86270- 7167 Aug, [facility] [id number] [place] [address] 89440- 0027 Aug, Acute pyelonephritis N10 and Medicare welcome exam Z00.00 [facility] [id number] [place] [address] 77382 -5178 Aug, Dysuria R30.0 and Acute pyelonephritis N10 [facility] [address] [address]- 0838 Aug, [facility] [id number] [place] [address] 90855- 4891 Aug, [facility] [id number] [place] [address] 36115- 8753 Aug, [facility] [id number] [place] [address] 07064- 2040 Aug, [facility] [address] [address]- 1761 Jul, [facility] [id number] [place] [address] 61371- 0361 Jul, Renal calculus, right N20.0 and Medicare welcome exam Z00.00 [facility] [id number] [place] [address] 58301 -3230 Jul, Dysuria R30.0 and Renal calculus, right N20.0 [facility] [id number] [place] [address] 40940- 9708 Jul, Medicare welcome exam Z00.00 [facility] [id number] [place] [address] 25704- 6907 Jun, Gastroesophageal reflux disease without esophagitis K21.9 and Generalized abdominal pain R10.84 [facility] [id number] [place] [address] 45646- 2866 Jun, Medicare welcome exam Z00.00 [facility] [id number] [place] [address] 68565- 8521 Jun, [facility] [id number] [place] [address] 30300- 5599 Jun, Medicare welcome exam Z00.00 and Encounter for screening mammogram for malignant neoplasm of breast Z12.31 [facility] [id number] [place] [address] 92808- 2284 Jun, Chronic pain G89.29 [facility] [id number] [place] [address] 58389- 7794 May, [facility] [id number] [place] [address] 45593- 5752 May, Pelvic pain R10.2 [facility] [id number] [place] [address] 27039- 2240 May, Pelvic pain R10.2 [facility] [id number] [place] [address] 78610 -0020 May, Renal calculus, right N20.0 [facility] [id number] [place] [address] 26566- 6076 May, Hematuria, unspecified type R31.9 and Nephrolithiasis N20.0 [facility] [id number] [place] [address] 23393 -7652 May, Dysuria R30.0 and Nephrolithiasis N20.0 [facility] [id number] [place] [address] 26788- 3056 May, [facility] [id number] [place] [address] 79565 -5387 May, Abdominal pain R10.9 and Kidney stone N20.0 [facility] [id number] [place] [address] 39419- 3335 May, [facility] [id number] [place] [address] 42940- 4946 May, Chronic pain G89.29 and Panic attacks F41.0 [facility] [id number] [place] [address] 39913- 2282 May, Urinary tract infection without hematuria, site unspecified N39.0 [facility] [id number] [place] [address] 02889- 9320 Apr, Right lower quadrant abdominal pain R10.31 and Abnormal serum lipase level R74.8 [facility] [id number] [place] [address] 94958- 0617 Apr, Recurrent urinary tract infection N39.0 [facility] [id number] [place] [address] 75739- 8780 Apr, UTI symptoms R39.9 ; Recurrent urinary tract infection N39.0 and Pelvic pain R10.2 [facility] [address] [place] [address] 55889- 3244 Apr, Chronic pain G89.29 and Panic attacks F41.0 [facility] [id number] [place] [address] 85378- 8291 Apr, Dysuria R30.0 [facility] [id number] [place] [address] 73583- 9801 Apr, [facility] [id number] [place] [address] 25511- 4360 Apr, Dysuria R30.0 and Urinary tract infection without hematuria , site unspecified N39.0 [facility] [id number] [place] [address] 16532- 5112 Mar, UTI symptoms R39.9 [facility] [id number] [place] [address] 64942- 2301 Mar, [facility] [id number] [place] [address] 78591- 2709 Mar, Panic attacks F41.0 and Chronic pain G89.29 [facility] [address] 23663- 0983 Mar, [facility] [id number] [place] [address] 12830- 4823 Mar, Dysuria R30.0 [facility] [id number] [place] [address] 78872- 4374 Mar, Dysuria R30.0 [facility] [id number] [place] [address] 67189- 0817 Feb, Chronic pain G89.29 ; Shortness of breath R06.02 ; Weight loss R63.4 ; Encounter for immunization Z23 ; Bone pain M89.8X9 ; Right anterior knee pain M25.561 and Cough R05 [facility] [id number] [place] [address] 77389- 6356 Feb, Shortness of breath R06.02 [facility] [id number] [place] [address] 29836- 7294 Feb, [facility] [id number] [place] [address] 07568- 0784 Feb, Panic attacks F41.0 and Chronic pain G89.29 [facility] [address] 45206- 5835 Feb, [facility] [address] 65464- 8665 04 Feb, 2017 Panic attacks F41.0 ; Shortness of breath R06.02 and Encounter for immunization Z23 [facility] [address] 83222- 0873 Jan, [facility] [address] 98775- 6078 15 Jan, 2017 Anxiety F41.9 and Chronic pain G89.29 [facility] [address] 02875- 5097 Dec, Anxiety F41.9 and Chronic pain G89.29 [facility] [address] 64293- 2162 Nov, Chronic pain G89.29 [facility] [address] 07409- 8402 Nov, Anxiety F41.9 [facility] [address] 52374- 1711 Nov, Chronic pain G89.29 ; Essential hypertension I10 and Other emphysema J43.8 [facility] [id number] [place] [address] 91769- 2513 Oct, Anxiety F41.9 [facility] [address] 28906- 9431 Oct, [facility] [address] 92842- 6853 Oct, Chronic pain G89.29 [facility] [address] 46921- 8011 September, Recurrent UTI N39.0 ; Neuropathy G62.9 and Anxiety F41.9 [facility] [id number] [place] [address] 67697- 5053 September, [facility] [id number] [place] [address] 24719- 3645 September, Chronic pain G89.29 [facility] [id number] [place] [address] 10709- 1750 September, [facility] [address] 02504- 5440 Aug, Post-traumatic stress disorder, chronic F43.12 ; Chronic urinary tract infection N39.0 ; Gastroesophageal reflux disease without esophagitis K21.9 ; Chronic pain G89.29 ; Essential hypertension I10 and Tobacco abuse Z72.0 [facility] [id number] [place] [address] 92471 -0776 Aug, [facility] [address] 25980- 1247 Aug, Chronic pain G89.29 [facility] [address] 82191- 3238 Aug, Insomnia, unspecified type G47.00 [facility] [id number] [place] [address] 70362- 7583 Aug, [facility] [id number] [place] [address] 88169- 5680 Jul, Chronic pain G89.29 [facility] [id number] [place] [address] 29038- 3327 Jul, [facility] [address] 88337- 1489 Jul, [facility] [id number] [place] [address] 03312- 7489 Jul, [facility] [address] 27304- 5569 15 Jul, 2016 Recurrent UTI (urinary tract infection) N39.0 [facility] [id number] [place] [address] 98893- 4284 14 Jul, 2016 [facility] [id number] [place] [address] 92068- 5841 27 Jun, 2016 Chronic pain G89.29 [facility] [id number] [place] [address] 70425- 4939 17 Jun, 2016 [facility] [id number] [place] [address] 91709- 8432 Jun, [facility] [id number] [place] [address] 34556- 6259 May, Chronic pain G89.29 [facility] [id number] [place] [address] 81314- 7654 May, Weight loss R63.4 and Shortness of breath R06.02 [facility] [id number] [place] [address] 60541- 2133 May, Chronic pain G89.29 ; Weight loss R63.4 and Tobacco abuse Z72.0 [facility] [id number] [place] [address] 61854- 9417 May, [facility] [id number] [place] [address] 80777- 6192 May, Hypoxia R09.02 [facility] [id number] [place] [address] 44698- 3973 May, [facility] [id number] [place] [address] 59968- 5584 May, Pulmonary emphysema, unspecified emphysema type J43.9 [facility] [id number] [place] [address] 48296 -5041 May, [facility] [id number] [place] [address] 85695- 0599 May, [facility] [id number] [place] [address] 23935- 0711 May, [facility] [address] 51706- 8612 May, Chronic pain G89.29 ; Encounter for immunization Z23 ; Right anterior knee pain M25.561 and Cough R05 [facility] [address] 62199- 0099 Apr, Chronic pain G89.29 [facility] [id number] [place] [address] 64812- 7186 Apr, [facility] [address] 48156- 1205 Apr, Generalized anxiety disorder F41.1 and Depression, unspecified depression type F32.9 [facility] [address] 70001- 7670 Apr, Chronic pain G89.29 ; Hypokalemia E87.6 and Insomnia, unspecified type G47.00 [facility] [id number] [place] [address] 83697- 8767 Apr, [facility] [id number] [place] [address] 63610- 4040 Apr, Chronic pain G89.29 [facility] [id number] [place] [address] 84750- 6297 Apr, [facility] [id number] [place] [address] 43181- 5874 Mar, [facility] [id number] [place] [address] 88248- 6862 Mar, Insomnia, unspecified type G47.00 [facility] [id number] [place] [address] 31944- 4677 Mar, Chronic pain G89.29 [facility] [id number] [place] [address] 59250- 2248 Mar, [facility] [address] [address]- 4473 Feb, [facility] [address] [address]- 3548 Feb, [facility] [id number] [place] [address] 34577- 1751 Feb, [facility] [id number] [place] [address] 65493- 3967 Feb, [facility] [id number] [place] [address] 90940- 9721 Feb, [facility] [id number] [place] [address] 79945- 7145 29 Jan, 2016 [facility] [id number] [place] [address] 65714- 2444 26 Jan, 2015 [facility] [address] [address]- 3602 20 Jan, 2015 [facility] [id number] [place] [address] 18814- 1940 13 Jan, 2015 [facility] [address] [address]- 6980 12 Jan, 2016 [facility] [id number] [place] [address] 21933- 3960 07 Jan, 2015 Chronic pain G89.29 [facility] [address] [address]- 3294 Jan, 2015 Chronic pain G89.29 and Fibromyalgia M79.7 [facility] [address] [address]- 3801 Dec, Depression, unspecified depression type F32.9 and Generalized anxiety disorder 300.02 [facility] [address] [address]- 3137 Dec, Dysthymia F34.1 ; Insomnia, unspecified type G47.00 and Chronic pain G89.29 [facility] [address] [facility] [id number] [place] [address] 66426- 8829 Dec, Chronic pain G89.29 [facility] [id number] [place] [address] 77712 2546 Dec, Insomnia, unspecified type G47.00 [facility] [address] [facility] [id number] [place] [address] 40237 254 Dec, Fibromyalgia M79.7 and Chronic pain G89.29 [facility] [id number] [place] [address] 55090- 3136 Dec, [facility] [id number] [place] [address] 79643 2546 Dec, [facility] [id number] [place] [address] 73993- 1875 Dec, [facility] [id number] [place] [address] 33236 2546 Dec, [facility] [id number] [place] [address] 56984- 7401 Dec, Chronic pain G89.29 [facility] [id number] [place] [address] 15044 2544 Dec, [facility] [id number] [place] [address] 49442 2547 Dec, [facility] [id number] [place] [address] 68115 2546 Dec, [facility] [id number] [place] [address] 37660 2547 Dec, Chronic pain G89.29 and Dysthymia F34.1 [facility] [id number] [place] [address] 21387 2544 Nov, [facility] [id number] [place] [address] 26878- 4158 Nov, Hypokalemia E87.6 and Chronic pain G89.29 [facility] [address] 98346- 2104 Nov, Back pain M54.9 and Pain in right knee M25.561 [facility] [address] 01907- 8126 Nov, [facility] [address] 16471- 1548 Nov, Chronic pain G89.29 [facility] [address] 84096- 9725 Nov, Chronic pain G89.29 ; Weight loss R63.4 ; Bone pain M89.8X9 and Insomnia, unspecified type G47.00 [facility] [address] 41937- 8620 Nov, Chronic pain G89.29 [facility] [address] 67921- 6869 Nov, Chronic pain G89.29 [facility] [address] 90210- 0069 30 Oct, 2015 Chronic pain G89.29 [facility] [id number] [place] [address] 57369- 6820 Oct, UTI symptoms R39.9 [facility] [id number] [place] [address] 91086- 7833 27 Oct, 2015 Chronic pain G89.29 [facility] [address] 11395- 3740 20 Oct, 2015 Chronic pain G89.29 [facility] [id number] [place] [address] 87030- 8968 13 Oct, 2015 Chronic pain G89.29 [facility] [address] 35562- 8250 Oct, Right upper quadrant abdominal pain R10.11 [facility] [address] [address]- 2872 Oct, Chronic pain G89.29 [facility] [address] [address]- 8468 Oct, [facility] [id number] [place] [address] 24455- 9345 September, Chronic pain G89.29 [facility] [id number] [place] [address] 22144- 5068 September, Dysuria R30.0 and Urinary tract infection without hematuria , site unspecified N39.0 [facility] [id number] [place] [address] 35162- 7991 September, [facility] [id number] [place] [address] 26238- 7260 September, Dysuria R30.0 [facility] [id number] [place] [address] 49084- 3861 September, Chronic pain G89.29 [facility] [id number] [place] [address] 98748- 1919 September, Chronic pain G89.29 and Essential hypertension I10 [facility] [address] [address]- 9359 September, [facility] [id number] [place] [address] 37328- 3159 September, [facility] [id number] [place] [address]- [address] September, [facility] [id number] [place] [address]89- 7183 Aug, UTI symptoms R39.9 [facility] [address] [address] Aug, Dysuria R30.0 [facility] [id number] [address] Aug, [facility] [id number] [place] [address] 770[address]- [address]150 Aug, [facility] [id number] [place] [address] 61584- 7095 Aug, [facility] [id number] [place] [address] 60807- 3668 Aug, Chronic pain G89.29 [facility] [id number] [place] [address] 47[address]- 4105 Aug, Dysthymia F34.1 [facility] [id number] [place] [address] 70[address]- 0384 Aug, Conjunctivitis, unspecified conjunctivitis type, unspecified laterality H10.9 [facility] [id number] [place] [address] 57956- 9776 Jul, Chronic pain G89.29 ; Back pain M54.9 ; Tobacco abuse Z72.0 and Weight decrease R63.4 [facility] [id number] [place] [address] 668[address]- 1391 Jul, [facility] [id number] [place] [address] 75973- 0692 Jul, [facility] [id number] [place] [address] 32209- 9858 24 Jul, 2015 Chronic pain G89.29 [facility] [id number] [address] Jul, [facility] [id number] [place] [address] 99509- 4763 Jul, [facility] [id number] [place] [address] 54883- 4984 Jul, [facility] [id number] [place] [address] [phone]- 1570 17 Jul, 2015 [facility] [address] [address] 17 Jul, 2015 Chronic pain G89.29 [facility] [id number] [address] 16 Jul, 2015 Chronic pain G89.29 [facility] [id number] [place] [address] 20400- 9232 15 Jul, 2015 [facility] [id number] [place] [address] 02024- 0998 Jul, [facility] [id number] [place] [address] 94386- 5170 Jul, [facility] [id number] [place] [address] 02896- 5827 Jul, [facility] [id number] [place] [address] 24442- 7774 Jun, [facility] [id number] [place] [address] 93252- 2231 Jun, Depression, unspecified depression type F32.9 [facility] [id number] [place] [address] 32640- 5585 Jun, Pain in right knee M25.561 [facility] [id number] [place] [address] 73146- 4500 24 Jun, 2015 Chronic pain G89.29 ; Back pain M54.9 ; Bone pain M89.8X9 and Weight loss R63.4 [facility] [id number] [place] [address] 17706- 9227 Jun, [facility] [id number] [place] [address] 28170- 4007 May, [facility] [address] [address] 1106 May, UTI symptoms R39.9 ; Pain in right knee M25.561 ; Right low back pain, with sciatica presence unspecified M54.5 ; Right foot pain M79.671 ; Hypokalemia E87.6 and Screening, lipid Z13.220 [facility] [id number] [place] [address] 24163- 1778 May, [facility] [id number] [place] [address] 21418- 4856 May, [facility] [id number] [place] [address] 74042- 9460 Mar, [facility] [id number] [place] [address] 00959- 5143 Mar, [facility] [id number] [place] [address] 05925- 9481 Mar, Hypokalemia E87.6 [facility] [address] 8[address]32- 3798 Mar, Pain in right leg M79.604 ; Encounter for immunization Z23 ; Pain in right knee M25.561 and Hypokalemia E87.6 [facility] [id number] [place] [address] 76383- 0835 Jan, [facility] [id number] [place] [address] 39081- 9337 Jan, [facility] [id number] [place] [address] 25138 254 Jan, Abdominal pain, generalized 789.07 [facility] [id number] [place] [address] 15873 2549 Jan, Abdominal pain, generalized 789.07 [facility] [id number] [place] [address] 50011- 2084 Dec, [facility] [id number] [place] [address] 53843- 8908 Dec, [facility] [address] [address]- 8066 Dec, [facility] [id number] [place] [address] 51738- 0600 Nov, Hallux valgus 735.0 and Hammertoe 735.4 [facility] [address] [address]- 6916 Nov, [facility] [id number] [place] [address] 89045- 5414 Nov, Hallux valgus 735.0 and Hammer toe 735.4 [facility] [id number] [place] [address] 18900- 6926 Oct, [facility] [id number] [place] [address] 59085- 0046 Oct, [facility] [id number] [place] [address] 15943- 8861 Oct, Pre-op evaluation V72.84 [facility] [address] [address]- 4961 Oct, [facility] [id number] [place] [address] 01644- 3165 Oct, [facility] [address] [address]- 1123 September, [facility] [address] [address] 2546 September, [facility] [id number] [address]- 2468 September, Hallux valgus (acquired) 735.0 and Other hammer toe ( acquired) 735.4 [facility] [address] [address]- 2546 Aug, [facility] [id number] [place] [address] 63605- 4579 Aug, [facility] [place] [facility] [address] [id number] [place] [address]- 5075 Jul, [facility] [place] [facility] [address] [id number] [place] [address]- 5172 Jul, [facility] [place] [facility] [address] [id number] [place] [address]- 3877 Jul, [facility] [place] [facility] [address] [id number] [place] [address]- 2684 Jul, [facility] [place] [facility] [address] [id number] [place] [address]- 3599 Jul, [facility] [place] [facility] [address] [id number] [place] [address]- 1560 Jul, [facility] [place] [facility] [address] [facility] [id number] [place] [address]- 1456 Jul, [facility] [place] [facility] [address] [id number] [place] [address]- 2248 Jul, [facility] [place] [facility] [address] [id number] [place] [address]- 9843 Jun, [facility] [place] [facility] [address] [facility] [id number] [place] [address]- 4439 Jun, [facility] [place] [facility] [address] [id number] [place] [address]- 8455 Jun, 2014 [facility] [place] [facility] [address] [id number] [place] [address]- 0758 Jun, [facility] [place] [facility] [address] [id number] [place] [address]- 5229 Jun, [facility] [place] [facility] [address] [id number] [place] [address]- 6609 Jun, [facility] [place] [facility] [address] [facility] [id number] [place] [address]- 3544 Jun, [facility] [place] [facility] [address] [id number] [place] [address]- 3206 Jun, [facility] [address] [id number] [place] [address]- 3291 Jun, [facility] [place] [facility] [address] [id number] [place] [address]- 4326 Jun, [facility] [place] [facility] [address] [id number] [place] [address]- 2451 May, [facility] [place] [facility] [address] [id number] [place] [address]- 5905 May, [facility] [place] [facility] [address] [id number] [place] [address]- 9045 May, [facility] [place] [facility] [address] [id number] [place] [address]- 5595 May, [facility] [place] [facility] [address] [id number] [place] [address]- 1820 May, [facility] [address] [id number] [place] [address]- 2451 May, [facility] [place] [facility] [address] [id number] [place] [address]- 4862 May, [facility] [place] [facility] [address] [id number] [place] [address]- 9198 May, [facility] [place] [facility] [address] [id number] [place] [address]- 2505 May, [facility] [place] [facility] [address] [id number] [place] [address]- 3289 May, [facility] [place] [facility] [address] [id number] [place] [address]- 6985 May, [facility] [place] [facility] [address] [id number] [place] [address]- 6686 May, [facility] [place] [facility] [address] [id number] [place] [address]- 5605 May, [facility] [place] [facility] [address] [id number] [place] [address]- 6885 May, [facility] [place] [facility] [address] [id number] [place] [address]- 1037 May, [facility] [place] [facility] [address] [id number] [place] [address]- 8937 May, [facility] [place] [facility] [address] [id number] [place] [address]- 3496 May, [facility] [place] [facility] [address] [id number] [place] [address]- 4740 May, [facility] [place] [facility] [address] [id number] [place] [address]- 1122 Apr, [facility] [place] [facility] [address] [id number] [place] [address]- 0266 Apr, [facility] [place] [facility] [address] [id number] [place] [address]- 4164 Apr, [facility] [place] [facility] [address] [id number] [place] [address]- 4858 Apr, [facility] [place] [facility] [address] [id number] [place] [address]- 5347 Apr, [facility] [place] [facility] [address] [id number] [place] [address]- 6009 Apr, [facility] [place] [facility] [address] [id number] [place] [address]- 4002 Apr, [facility] [place] [facility] [address] [id number] [place] [address]- 3167 Apr, [facility] [place] [facility] [address] [id number] [place] [address]- 1570 Apr, [facility] [place] [facility] [address] [id number] [place] [address]- 4983 Mar, [facility] [place] [facility] [address] [id number] [place] [address]- 6370 Mar, [facility] [place] [facility] [address] [id number] [place] [address]- 0072 Mar, [facility] [place] [facility] [address] [id number] [place] [address]- 4461 Mar, [facility] [place] [facility] [address] [id number] [place] [address]- 6285 Mar, [facility] [place] [facility] [address] [id number] [place] [address]- 2551 Feb, [facility] [place] [facility] [address] [id number] [place] [address]- 6756 Feb, [facility] [place] [facility] [address] [id number] [place] [address]- 0522 Feb, [facility] [place] [facility] [address] [id number] [place] [address]- 6258 Feb, [facility] [place] [facility] [address] [id number] [place] [address]- 2412 Feb, [facility] [place] [facility] [address] [id number] [place] [address]- 0990 Feb, [facility] [place] [facility] [address] [id number] [place] [address]- 7042 Feb, [facility] [place] [facility] [address] [id number] [place] [address]- 5697 Feb, [facility] [place] [facility] [address] [id number] [address]- 0729 Feb, [facility] [place] [facility] [address] [id number] 0198 Feb, [facility] [place] [facility] [address] [id number] [address]- 8119 Feb, [facility] [place] [facility] [address] [id number] 1581 Feb, [facility] [place] [facility] [address] [id number] [place] [address]- 7886 07 Feb, 2013 [facility] [place] [facility] [address] [id number] [place] [address]- 7080 Feb, [facility] [place] [facility] [address] [id number] [place] [address]- 0844 Feb, 2013 [facility] [place] [facility] [address] [id number] [place] [address]- 3283 Feb, [facility] [place] [facility] [address] [id number] [place] [address]- 3574 Jan, 2013 [facility] [place] [facility] [address] [id number] [place] [address]- 6972 23 Jan, 2013 [facility] [place] [facility] [address] [id number] [place] [address]- 7683 20 Jan, 2014 [facility] [place] [facility] [address] [id number] [place] [address]- 3254 19 Jan, 2013 [facility] [place] [facility] [address] [id number] [place] [address]- 0940 11 Jan, 2014 [facility] [place] [facility] [address] [id number] [place] [address]- 9499 Jan, [facility] [place] [facility] [address] [id number] [place] [address]- 3868 Jan, [facility] [place] [facility] [address] [id number] [place] [address]- 8777 Jan, 2013 [facility] [place] [facility] [address] [id number] [place] [address]- 3413 Dec, [facility] [place] [facility] [address] [id number] [place] [address]- 5906 Dec, [facility] [place] [facility] [address] [id number] [place] [address]- 1469 Nov, [facility] [place] [facility] [address] [id number] [place] [address]- 6098 Nov, [facility] [place] [facility] [address] [id number] [place] [address]- 5166 Nov, [facility] [place] [facility] [address] [id number] [place] [address]- 6455 Nov, [facility] [place] [facility] [address] [id number] [place] [address]- 5506 Nov, [facility] [place] [facility] [address] [id number] [place] [address]- 7140 Nov, [facility] [place] [facility] [address] [id number] [place] [address]- 3514 Nov, [facility] [place] [facility] [address] [id number] [place] [address]- 9449 Nov, [facility] [place] [facility] [address] [id number] [place] [address]- 2119 Nov, [facility] [place] [facility] [address] [id number] [place] [address]- 3110 Oct, [facility] [place] [facility] [address] [id number] [place] [address]- 3510 Oct, [facility] [place] [facility] [address] [id number] [place] [address]- 6838 Oct, [facility] [place] [facility] [address] [id number] [place] [address]- 7076 Oct, [facility] [place] [facility] [address] [id number] [place] [address]- 2672 Oct, [facility] [place] [facility] [address] [id number] [place] [address]- 0734 Oct, [facility] [place] [facility] [address] [id number] [place] [address]- 5289 September, [facility] [place] [facility] [address] [id number] [place] [address]- 6503 September, [facility] [place] [facility] [address] [id number] [place] [address]- 4536 September, [facility] [address] [id number] [place] 6565 September, [facility] [address] [id number] [place] [address]- 8365 September, [facility] [address] [id number] [place] [address]- 2469 September, [facility] [address] [id number] [place] [address]- 1094 September, [facility] [address] [id number] [place] 3241 September, [facility] [address] [id number] [place] [address]- 1778 September, [facility] [address] [id number] [place] [address]- 3462 September, [facility] [address] [id number] [place] [address]- 2532 September, [facility] [address] [id number] [place] [address]- 5770 September, [facility] [address] [id number] [place] [address]- 4035 September, [facility] [address] [id number] [place] [address]- 3165 September, [facility] [address] [id number] [place] [address]- 5206 September, [facility] [place] [facility] [address] [id number] [place] 5647 September, [facility] [place] [facility] [address] [id number] [place] 1815 September, [facility] [address] [id number] [place] [address]- 7276 September, [facility] [place] [facility] [address] [id number] [place] [address]- 5506 September, [facility] [place] [facility] [address] [id number] [place] [address]- 3445 September, [facility] [place] [facility] [address] [id number] [place] [address]- 5354 Aug, [facility] [place] [facility] [address] [id number] [place] [address]- 5020 Aug, [facility] [place] [facility] [address] [id number] [place] [address]- 8537 Aug, [facility] [place] [facility] [address] [id number] [place] [address]- 7839 Aug, [facility] [place] [facility] [address] [id number] [place] [address]- 6567 Aug, [facility] [place] [facility] [address] [id number] [place] [address]- 8085 Aug, [facility] [place] [facility] [address] [id number] [place] [address]- 3443 Aug, [facility] [place] [facility] [address] [id number] [place] [address]- 3552 Aug, [facility] [place] [facility] [address] [id number] [place] [address]- 4930 Aug, [facility] [place] [facility] [address] [id number] [place] [address]- 5834 Aug, [facility] [place] [facility] [address] [id number] [place] [address]- 1197 Aug, [facility] [place] [facility] [address] [id number] [place] [address]- 4366 Aug, [facility] [place] [facility] [address] [id number] [place] [address]- 1612 Aug, [facility] [place] [facility] [address] [id number] [place] [address]- 4623 Aug, [facility] [place] [facility] [address] [id number] [place] [address]- 9848 Aug, [facility] [place] [facility] [address] [id number] [place] [address]- 1554 Jul, [facility] [place] [facility] [address] [id number] [place] [address]- 5534 Jul, [facility] [place] [facility] [address] [id number] [place] [address]- 8473 Jul, [facility] [place] [facility] [address] [id number] [place] [address]- 9387 Jul, [facility] [place] [facility] [address] [id number] [place] [address]- 5874 Jul, [facility] [place] [facility] [address] [id number] [place] [address]- 8064 Jul, [facility] [place] [facility] [address] [id number] [place] [address]- 0231 Jul, [facility] [place] [facility] [address] [id number] [place] [address]- 0507 Jul, [facility] [place] [facility] [address] [id number] [place] [address]- 1134 Jul, [facility] [place] [facility] [address] [id number] [place] [address]- 8591 Jul, [facility] [place] [facility] [address] [id number] [place] [address]- 7769 Jul, [facility] [place] [facility] [address] [id number] [place] [address]- 1140 Jul, [facility] [place] [facility] [address] [id number] [place] [address]- 8336 Jul, [facility] [place] [facility] [address] [id number] [place] [address]- 7701 Jul, [facility] [place] [facility] [address] [id number] [place] [address]- 2838 Jul, [facility] [place] [facility] [address] [id number] [place] [address]- 8245 Jun, [facility] [place] [facility] [address] [id number] [place] [address]- 5766 Jun, [facility] [place] [facility] [address] [id number] [place] [address]- 7486 Jun, [facility] [place] [facility] [address] [id number] [place] [address]- 1726 Jun, [facility] [place] [facility] [address] [id number] [place] [address]- 1373 Jun, [facility] [place] [facility] [address] [id number] [place] [address]- 5569 Jun, [facility] [place] [facility] [address] [id number] [place] [address]- 1941 May, [facility] [place] [facility] [address] [id number] [place] [address]- 0462 May, [facility] [place] [facility] [address] [id number] [place] [address]- 6282 May, [facility] [place] [facility] [address] [id number] [place] [address]- 0903 May, [facility] [place] [facility] [address] [id number] [place] [address]- 4679 May, [facility] [place] [facility] [address] [id number] [place] [address]- 0152 May, [facility] [place] [facility] [address] [id number] [place] [address]- 2049 May, [facility] [place] [facility] [address] [id number] [place] [address]- 5507 May, [facility] [place] [facility] [address] [id number] [place] [address]- 5725 May, [facility] [address] [id number] [place] [address]- 3436 May, [facility] [place] [facility] [address] [id number] [place] [address]- 9551 May, [facility] [place] [facility] [address] [id number] [place] [address]- 5792 May, [facility] [place] [facility] [address] [id number] [place] [address]- 0227 May, [facility] [place] [facility] [address] [id number] [place] [address]- 2562 May, [facility] [place] [facility] [address] [id number] [place] [address]- 7738 May, [facility] [place] [facility] [address] [id number] [place] [address] Apr, [facility] [place] [facility] [address] [id number] [place] [address] Apr, [facility] [place] [facility] [address] [id number] [place] [address] Apr, [facility] [place] [facility] [address] [id number] [place] [address] Apr, [facility] [place] [facility] [address] [id number] [place] [address] Apr, [facility] [place] [facility] [address] [id number] [place] [address] Apr, [facility] [place] [facility] [address] [id number] [place] [address] Apr, [facility] [place] [facility] [address] [id number] [place] [address] Apr, [facility] [place] [facility] [address] [id number] [place] [address] Apr, [facility] [place] [facility] [address] [id number] [place] [address] Apr, [facility] [address] [id number] [place] [address] Mar, [facility] [address] [id number] [place] [address] Mar, [facility] [address] [id number] [place] [address] Mar, [facility] [address] [id number] [place] [address] Mar, [facility] [address] [id number] [place] [address] Mar, [facility] [address] [id number] [place] [address] Mar, [facility] [address] [id number] [place] [address] 39[address] Mar, [facility] [address] [id number] [place] [address] Mar, [facility] [address] [id number] [place] [address]267 Mar, [facility] [address] [id number] [place] [address] Mar, [facility] [address] [id number] [place] [address] 9516 Mar, [facility] [address] [id number] [place] [address] Mar, [facility] [place] [facility] [address] [id number] [place] [address] 2007 Mar, [facility] [place] [facility] [address] [id number] [place] [address]289 Mar, [facility] [address] [id number] [place] [address] Mar, [facility] [place] [facility] [address] [id number] [place] [address] 18 Mar, 2013 [facility] [place] [facility] [address] [id number] [place] [address] Mar, [facility] [place] [facility] [address] [id number] [place] [address] Mar, [facility] [place] [facility] [address] [id number] [place] [address] Mar, [facility] [place] [facility] [address] [id number] [place] [address] Mar, [facility] [place] [facility] [address] [id number] [place] [address] Mar, [facility] [place] [facility] [address] [id number] [place] [address] Mar, [facility] [place] [facility] [address] [id number] [address] Mar, [facility] [place] [facility] [address] [id number] [place] [address] Feb, [facility] [place] [facility] [address] [id number] [place] [address] Feb, [facility] [place] [facility] [address] [id number] [place] [address] Feb, [facility] [place] [facility] [address] [id number] [place] [address] 16 Feb, 2013 [facility] [place] [facility] [address] [id number] [place] [address] 15 Feb, 2013 [facility] [place] [facility] [address] [id number] [place] [address] Feb, [facility] [place] [facility] [address] [facility] [id number] [place] [address] Feb, [facility] [place] [facility] [address] [id number] [place] [address] Feb, [facility] [address] [id number] [place] [address] Feb, [facility] [place] [facility] [address] [id number] [place] [address] Feb, [facility] [place] [facility] [address] [id number] [place] [address] 30 Jan, 2013 [facility] [place] [facility] [address] [id number] [place] [address]- 365[address] 26 Jan, 2013 [facility] [place] [facility] [address] [id number] [place] [address]- 100[address] 24 Jan, 2013 [facility] [place] [facility] [address] [id number] [place] [address]- [address] 23 Jan, 2013 [facility] [place] [facility] [address] [id number] [place] [address] 17 Jan, 2013 [facility] [place] [facility] [address] [id number] [place] [address] Dec, [facility] [place] [facility] [address] [id number] [place] [address] Dec, [facility] [place] [facility] [address] [id number] [place] [address] Dec, [facility] [place] [facility] [address] [id number] [place] [address] 15 Dec, 2012 [facility] [place] [facility] [address] [id number] [place] [address]- [address]367 14 Dec, 2012 [facility] [place] [facility] [address] [id number] [place] [address] Dec, [facility] [place] [facility] [address] [id number] [place] [address] 279[address] Dec, [facility] [place] [facility] [address] [id number] [place] [address] 4470 Nov, [facility] [place] [facility] [address] [id number] [place] [address]- [address] 16 Nov, 2012 [facility] [address] [id number] [place] [address]266 15 Nov, 2012 [facility] [place] [facility] [address] [id number] [place] [address]- [address] 05 Nov, 2012 [facility] [address] [id number] [place] [address] Nov, [facility] [place] [facility] [address] [id number] [place] [address] Oct, [facility] [address] [id number] [place] [address] Oct, [facility] [place] [facility] [address] [id number] [place] [address] Oct, [facility] [address] [id number] [place] [address] September, [facility] [address] [id number] [place] [address] September, [facility] [address] [id number] [place] [address] September, [facility] [address] [id number] [place] [address] September, [facility] [place] [facility] [address] [id number] [place] [address] September, [facility] [address] [id number] [place] [address]46 September, [facility] [place] [facility] [address] [id number] [place] [address] September, [facility] [place] [facility] [address] [id number] [place] [address] Aug, [facility] [place] [facility] [address] [id number] [place] [address]- 4926 23 Aug, 2012 [facility] [place] [facility] [address] [id number] [place] [address]- 7896 11 Aug, 2012 [facility] [place] [facility] [address] [id number] [place] [address]- 6[address] 29 Jul, 2012 [facility] [place] [facility] [address] [id number] [place] [address]- 7573 27 Jul, 2012 [facility] [place] [facility] [address] [id number] [place] [address]- 4322 26 Jul, 2012 [facility] [place] [facility] [address] [id number] [place] [address]- 1803 20 Jul, 2012 [facility] [place] [facility] [address] [id number] [place] [address]- 3115 18 Jul, 2012 [facility] [place] [facility] [address] [facility] [id number] [place] [address]- 5162 18 Jul, 2012 [facility] [place] [facility] [address] [id number] [place] [address]- 5556 13 Jul, 2012 [facility] [place] [facility] [address] [id number] [place] [address]- 1728 28 Jun, 2012 [facility] [place] [facility] [address] [facility] [id number] [place] [address]- 7806 27 Jun, 2012 [facility] [place] [facility] [address] [facility] [id number] [place] [address]- 3840 22 Jun, 2012 [facility] [place] [facility] [address] [id number] [place] [address]- 5670 20 Jun, 2012 [facility] [place] [facility] [address] [id number] [place] [address]- 8209 15 Jun, 2012 [facility] [place] [facility] [address] [id number] [place] [address]- 5331 15 Jun, 2012 [facility] [place] [facility] [address] [facility] [id number] [place] [address]- 2375 13 Jun, 2012 [facility] [place] [facility] [address] [id number] [place] [address]- 2456 Jun, [facility] [address] [id number] [place] [address]- 90[address] Jun, [facility] [place] [facility] [address] [id number] [place] [address]- 2546 Jun, [facility] [address] [id number] [place] [address]- 0736 May, [facility] [place] [facility] [address] [id number] [place] [address] 2549 May, [facility] [address] [id number] [place] [address] 4[address] May, [facility] [address] [id number] [place] [address]- 7704 May, [facility] [address] [id number] [place] [address]- 1814 May, [facility] [address] [id number] [place] [address]- 0942 May, [facility] [address] [id number] [place] [address]- 5964 31 Apr, 2012 [facility] [address] [id number] [place] [address] 2546 31 Apr, 2012 [facility] [address] [id number] [place] [address] 2546 Apr, [facility] [place] [facility] [address] [id number] [place] [address] 2542 28 Apr, 2012 [facility] [place] [facility] [address] [id number] [place] [address] 2546 26 Apr, 2012 [facility] [place] [facility] [address] [id number] [place] [address]- 2546 20 Apr, 2012 [facility] [place] [facility] [address] [id number] [place] [address]- 9258 Apr, [facility] [place] [facility] [address] [id number] [place] [address]- 0771 Mar, [facility] [place] [facility] [address] [id number] [place] [address]- 2791 Mar, [facility] [place] [facility] [address] [facility] [id number] [place] [address]- 5159 Mar, [facility] [place] [facility] [address] [id number] [place] [address]- 9425 Mar, [facility] [place] [facility] [address] [id number] [place] [address]- 1425 Mar, [facility] [place] [facility] [address] [id number] [address]- 9868 Mar, [facility] [place] [facility] [address] [id number] [place] [address]- 0622 Mar, [facility] [place] [facility] [address] [id number] [address] 86[address] Mar, [facility] [place] [facility] [address] [id number] [place] [address]- 7028 Mar, [facility] [place] [facility] [address] [id number] [address]- 2592 Mar, [facility] [place] [facility] [address] [id number] [place] [address]- 0810 Mar, [facility] [place] [facility] [address] [id number] [place] [address]- 3986 Mar, [facility] [place] [facility] [address] [id number] [place] [address]- 6551 Mar, [facility] [place] [facility] [address] [facility] [id number] [place] [address]- 5981 Mar, [facility] [place] [facility] [address] [facility] [id number] [place] [address]- 5[address] Mar, [facility] [place] [facility] [address] [id number] [place] [address]- 6593 Mar, [facility] [place] [facility] [address] [id number] [place] [address]- 4204 Mar, [facility] [place] [facility] [address] [id number] [place] [address]- 7051 Feb, [facility] [place] [facility] [address] [id number] [place] [address]- 8287 Feb, 2011 [facility] [place] [facility] [address] [id number] [place] [address]- 4720 Feb, [facility] [place] [facility] [address] [id number] [place] [address]- 1127 Feb, [facility] [place] [facility] [address] [id number] [place] [address]- 5752 Feb, [facility] [place] [facility] [address] [id number] [place] [address]- 1459 Feb, [facility] [place] [facility] [address] [id number] [place] [address]- 2369 Feb, [facility] [place] [facility] [address] [id number] [place] [address]- 3951 Feb, [facility] [place] [facility] [address] [facility] [id number] [place] [address]- 9612 Feb, [facility] [place] [facility] [address] [id number] [place] [address]- 0506 Feb, [facility] [place] [facility] [address] [id number] [place] [address]- 9012 Feb, [facility] [place] [facility] [address] [id number] [place] [address]- 4790 27 Jan, 2011 [facility] [place] [facility] [address] [id number] [place] [address]- 6528 25 Jan, 2012 [facility] [place] [facility] [address] [id number] [place] [address]- 9913 13 Jan, 2012 [facility] [place] [facility] [address] [id number] [place] [address]- 1587 12 Jan, 2012 [facility] [place] [facility] [address] [id number] [place] [address]- 1749 Jan, [facility] [place] [facility] [address] [id number] [place] [address]- 1740 Dec, [facility] [place] [facility] [address] [id number] [place] [address]- 1671 Dec, [facility] [place] [facility] [address] [id number] [place] [address]- 9003 Dec, [facility] [place] [facility] [address] [id number] [place] [address]- 8688 Dec, [facility] [place] [facility] [address] [id number] [place] [address]- 0796 Dec, [facility] [place] [facility] [address] [id number] [place] [address]- 2600 Dec, [facility] [place] [facility] [address] [id number] [place] [address]- 0424 Dec, [facility] [place] [facility] [address] [id number] [place] [address]- 5294 Dec, [facility] [place] [facility] [address] [id number] [place] [address]- 2141 Nov, [facility] [place] [facility] [address] [id number] [place] [address]- 2485 Nov, [facility] [place] [facility] [address] [id number] [place] [address]- 1967 Nov, [facility] [place] [facility] [address] [id number] [place] [address]- 3356 Nov, [facility] [place] [facility] [address] [id number] [place] [address]- 2720 Nov, [facility] [place] [facility] [address] [id number] [place] [address]- 2231 Oct, [facility] [address] [id number] [place] [address] Oct, [facility] [place] [facility] [address] [id number] [place] [address]- 5528 September, [facility] [address] [id number] [place] [address]- 7256 September, [facility] [place] [facility] [address] [id number] [place] [address]- 3821 September, [facility] [address] [id number] [place] [address]- 0505 September, [facility] [place] [facility] [address] [id number] [place] [address]- 9358 September, [facility] [address] [id number] [place] [address]- 5301 September, [facility] [place] [facility] [address] [id number] [place] [address]- 4644 September, [facility] [place] [facility] [address] [id number] [place] [address]- 5021 September, [facility] [place] [facility] [address] [id number] [place] [address]- 2454 September, [facility] [place] [facility] [address] [id number] [place] [address]- 9221 September, [facility] [place] [facility] [address] [id number] [place] [address]- 8459 September, [facility] [place] [facility] [address] [id number] [place] [address]- 4843 September, [facility] [place] [facility] [address] [id number] [place] [address]- 4254 September, [facility] [place] [facility] [address] [id number] [place] [address]- 9106 September, [facility] [place] [facility] [address] [id number] [place] [address]- 9261 24 Aug, 2011 [facility] [address] [id number] [place] [address]- 9685 20 Aug, 2011 [facility] [address] [id number] [place] [address]- 7926 13 Aug, 2011 [facility] [address] [id number] [place] [address]- 9513 11 Aug, 2011 [facility] [address] [id number] [place] [address]- 7174 23 Jul, 2011 [facility] [address] [id number] [place] [address]- 4248 13 Jul, 2011 [facility] [address] [id number] [place] [address]- 7597 13 Jul, 2011 [facility] [address] [id number] [place] [address]- 9356 28 Jun, [address] [facility] [address] [id number] [id number] 26 Jun, 2011 [facility] [address] [id number] [place] [address]- 0905 13 Jun, 2011 [facility] [address] [id number] [place] [address]- 4727 10 Jun, 2011 [facility] [address] [id number] [place] [address]- 9936 07 Jun, 2011 [facility] [address] [id number] [place] [address]- 6316 07 Jun, 2011 [facility] [place] [facility] [address] [id number] [place] [address]- 1196 03 Jun, 2011 [facility] [place] [facility] [address] [id number] [place] [address]- 7256 02 Jun, 2011 [facility] [place] [facility] [address] [id number] [place] [address]- 2628 31 May, 2011 [facility] [address] [id number] [place] [address]- 1381 30 May, 2011 [facility] [address] [id number] [place] [address]- 2524 May, [facility] [address] [id number] [place] [address]- 2517 May, [facility] [address] [id number] [place] [address]- 0347 May, [facility] [address] [id number] [place] [address]- 0003 May, [facility] [address] [id number] [place] [address]- 7251 May, [facility] [address] [id number] [place] [address]- 4128 May, [facility] [place] [facility] [address] [id number] [place] [address]- 2982 May, [facility] [address] [id number] [place] [address]- 1508 May, [facility] [place] [facility] [address] [id number] [place] [address]- 7292 May, [facility] [address] [id number] [place] [address]- 7887 May, [facility] [place] [facility] [address] [id number] [address]- 4949 May, [facility] [place] [facility] [address] [id number] [place] [address]- 6388 May, [facility] [place] [facility] [address] [id number] [place] [address]- 9684 30 Apr, 2011 [facility] [place] [facility] [address] [id number] [place] [address]- 9661 16 Apr, 2011 [facility] [place] [facility] [address] [id number] [place] [address]- 8686 05 Apr, 2011 [facility] [place] [facility] [address] [id number] [place] [address]- 3546 17 Mar, 2011 [facility] [place] [facility] [address] [id number] [place] [address] 2546 Mar, [facility] [place] [facility] [address] [id number] [place] [address]- 4236 31 Feb, 2011 [facility] [place] [facility] [address] [id number] [place] [address] 2546 26 Feb, 2011 [facility] [place] [facility] [address] [id number] [place] [address]- 0997 Feb, [facility] [place] [facility] [address] [id number] [place] [address]- 5299 20 Feb, 2011 [facility] [place] [facility] [address] [id number] [place] [address]- 3287 13 Feb, 2011 [facility] [place] [facility] [address] [id number] [place] [address]- 0398 28 Apr, 2010 [facility] [place] [facility] [address] [id number] [place] [address] 2546 22 Apr, 2010 [facility] [place] [facility] [address] [facility] [id number] [place] [address] 2542 16 Apr, 2010 [facility] [place] [facility] [address] [id number] [place] [address] 2546 15 Apr, 2010 [facility] [place] [facility] [address] [id number] [place] [address] 2546 15 Apr, 2010 [facility] [place] [facility] [address] [id number] [place] [address] 2546 Apr, [facility] [place] [facility] [address] [id number] [place] [address] 2546 24 Mar, 2010 [facility] [place] [facility] [address] [id number] [place] [address] 2541 17 Mar, 2010 [facility] [id number] [address]- 3313 17 Mar, 2010 [facility] [id number] [address]- 5002 28 Feb, 2010 [facility] [id number] [address]- 8912 Feb, [facility] [id number] [place] [address]- 0626 Feb, [facility] [id number] [address]- 5801 Feb, [facility] [id number] [place] [address]- 8744 Dec, [facility] [id number] [address]- 2504 Dec, [facility] [id number] [place] [address]- 1218 Oct, [facility] [id number] [address]- 0718 Mar, [facility] [id number] [address]- [address] Mar, [facility] [id number] [address]- 9772 September, IMMUNIZATIONS No Known Immunizations SOCIAL HISTORY Never Assessed REASON FOR VISIT EMR-[facility] PLAN OF CARE VITAL SIGNS MEDICATIONS Unknown [...]
--- OUTSIDE RECORDS SUMMARY | 2018-09-19 09:02 | XMS REPORT ---
Author Author Migration, Doctor Organization [facility] Address Unknown Phone Unavailable Care Team Providers Care Unit Receptionist Name Role Phone Migration, Doctor Unavailable Unavailable PROBLEMS Type Condition ICD9-CM Code OYM91-UP Code Onset Dates Condition Status SNOMED Code Problem Hypokalemia E87.6 Active 379626052 Problem Generalized anxiety disorder F41.1 Active 74869166 Problem Pain in right knee M25.561 Active 07585988 Problem Right low back pain, with sciatica presence unspecified M54.5 Active 922590571 Problem Right foot pain M79.671 Active 72702465 Problem UTI symptoms R39.9 Active 18629019 Problem Essential hypertension I10 Active 73302826 Problem Gastroesophageal reflux disease without esophagitis K21.9 Active 553701351 Problem Weight decrease R63.4 Active 101532541 Problem Depression, unspecified depression type F32.9 Active 70298776 Problem Right upper quadrant abdominal pain R10.11 Active 273268112 Problem Tobacco abuse Z72.0 Active 28729089 Problem Insomnia, unspecified type G47.00 Active 114933122 Problem Weight loss R63.4 Active 594796370 Problem Post-traumatic stress disorder, chronic F43.12 Active 35492957 Problem Pulmonary emphysema, unspecified emphysema type J43.9 Active 65553659 Problem Neuropathy G62.9 Active 955274887 Problem Anxiety F41.9 Active 01452707 Problem Other emphysema J43.8 Active 35603552 Problem Other chronic pain G89.29 Active 38503408 Problem Chronic pain G89.29 Active 28626980 Problem Opioid use disorder, moderate, dependence F11.20 Active 54763993 Problem Back pain M54.9 Active 785272940 Problem Bone pain M89.8X9 Active 88329510 Problem Panic attacks F41.0 Active 980166512 Problem Kidney stones N20.0 Active 64925302 Problem Renal calculus, right N20.0 Active 33568732 Problem Generalized abdominal pain R10.84 Active 921371708 ALLERGIES No Information ENCOUNTERS Encounter Location Date Diagnosis [facility] [address] [address] Feb, [facility] [id number] [place] [address] 32860- 5806 Dec, [facility] [id number] [place] [address] 33710- 6974 Dec, [facility] [id number] [place] [address] 97082- 3502 Dec, Medicare welcome exam Z00.00 [facility] [address] [place] [address] 73701- 5177 17 Nov, 2017 Opioid use disorder, moderate, dependence F11.20 [facility] [address] [place] [address] 04245- 6824 16 Nov, 2017 Pelvic pain R10.2 ; Acute pyelonephritis N10 and Essential hypertension I10 [facility] [address] [place] [address] 63114- 7987 28 Oct, 2017 Medicare welcome exam Z00.00 [facility] [address] [place] [address] 45527- 4293 Oct, Gross hematuria R31.0 ; Urinary tract infection without hematuria, site unspecified N39.0 and Weakness R53.1 [facility] [address] [place] [address] 85783- 5119 Oct, [facility] [address] [place] [address] 88683- 9004 Oct, [facility] [address] [place] [address] 44504- 6957 Oct, Medicare welcome exam Z00.00 [facility] [address] [place] [address] 37723- 2611 September, Back pain M54.9 and Right anterior knee pain M25.561 [facility] [address] [place] [address] 68423- 9842 September, [facility] [address] [address]- 2679 September, [facility] [address] [place] [address] 16478- 9345 September, Essential hypertension I10 [facility] [address] [place] [address] 01234- 7827 September, [facility] [address] [place] [address] 39285- 4262 September, RLQ abdominal pain R10.31 ; Low back pain M54.5 and Other chronic pain G89.29 [facility] [address] [place] [address] 91179- 8326 Aug, Medicare welcome exam Z00.00 [facility] [address] [place] [address] 16731- 5133 Aug, [facility] [address] [place] [address] 71366- 0214 Aug, Acute pyelonephritis N10 and Medicare welcome exam Z00.00 [facility] [address] [place] [address] 83292 -6917 Aug, Dysuria R30.0 and Acute pyelonephritis N10 [facility] [address] [address]- 7938 Aug, [facility] [id number] [place] [address] 76178- 6154 Aug, [facility] [address] [place] [address] 88300- 6650 Aug, [facility] [address] [place] [address] 87751- 2314 Aug, [facility] [address] [address]- 8042 Jul, [facility] [address] [place] [address] 73022- 9624 Jul, Renal calculus, right N20.0 and Medicare welcome exam Z00.00 [facility] [id number] [place] [address] 04258 -7106 Jul, Dysuria R30.0 and Renal calculus, right N20.0 [facility] [address] [place] [address] 25535- 1249 Jul, Medicare welcome exam Z00.00 [facility] [address] [place] [address] 10283- 1098 Jun, Gastroesophageal reflux disease without esophagitis K21.9 and Generalized abdominal pain R10.84 [facility] [address] [place] [address] 11895- 7184 Jun, Medicare welcome exam Z00.00 [facility] [address] [place] [address] 64919- 4842 Jun, [facility] [address] [place] [address] 63646- 4607 Jun, Medicare welcome exam Z00.00 and Encounter for screening mammogram for malignant neoplasm of breast Z12.31 [facility] [address] [place] [address] 85101- 8560 Jun, Chronic pain G89.29 [facility] [address] [place] [address] 97898- 0392 May, [facility] [address] [place] [address] 49446- 7461 May, Pelvic pain R10.2 [facility] [address] [place] [address] 34652- 7712 May, Pelvic pain R10.2 [facility] [address] [place] [address] 22733 -0485 May, Renal calculus, right N20.0 [facility] [address] [place] [address] 34172- 5392 May, Hematuria, unspecified type R31.9 and Nephrolithiasis N20.0 [facility] [address] [place] [address] 70321 -2847 May, Dysuria R30.0 and Nephrolithiasis N20.0 [facility] [address] [place] [address] 55397- 7949 May, [facility] [address] [place] [address] 84363 -1082 May, Abdominal pain R10.9 and Kidney stone N20.0 [facility] [address] [place] [address] 16853- 3288 May, [facility] [address] [place] [address] 56335- 6874 May, Chronic pain G89.29 and Panic attacks F41.0 [facility] [address] [place] [address] 20854- 4988 May, Urinary tract infection without hematuria, site unspecified N39.0 [facility] [address] [place] [address] 99889- 8117 Apr, Right lower quadrant abdominal pain R10.31 and Abnormal serum lipase level R74.8 [facility] [address] [place] [address] 92855- 6834 Apr, Recurrent urinary tract infection N39.0 [facility] [address] [place] [address] 38481- 1698 Apr, UTI symptoms R39.9 ; Recurrent urinary tract infection N39.0 and Pelvic pain R10.2 [facility] [address] [place] [address] 71862- 4272 Apr, Chronic pain G89.29 and Panic attacks F41.0 [facility] [address] [place] [address] 76575- 2401 Apr, Dysuria R30.0 [facility] [address] [place] [address] 16808- 4668 Apr, [facility] [address] [place] [address] 40658- 1475 Apr, Dysuria R30.0 and Urinary tract infection without hematuria , site unspecified N39.0 [facility] [address] [place] [address] 68820- 1977 Mar, UTI symptoms R39.9 [facility] [address] [place] [address] 51391- 8975 Mar, [facility] [address] [place] [address] 75214- 8876 Mar, Panic attacks F41.0 and Chronic pain G89.29 [facility] [address] 64253- 4786 Mar, [facility] [address] [place] [address] 95515- 1924 Mar, Dysuria R30.0 [facility] [address] [place] [address] 44672- 0366 Mar, Dysuria R30.0 [facility] [address] [place] [address] 32972- 4248 Feb, Chronic pain G89.29 ; Shortness of breath R06.02 ; Weight loss R63.4 ; Encounter for immunization Z23 ; Bone pain M89.8X9 ; Right anterior knee pain M25.561 and Cough R05 [facility] [address] [place] [address] 87847- 5221 Feb, Shortness of breath R06.02 [facility] [address] [place] [address] 58386- 1707 Feb, [facility] [address] [place] [address] 46542- 7061 Feb, Panic attacks F41.0 and Chronic pain G89.29 [facility] [address] 56028- 0533 Feb, [facility] [address] 93433- 8967 04 Feb, 2017 Panic attacks F41.0 ; Shortness of breath R06.02 and Encounter for immunization Z23 [facility] [address] 54854- 3194 Jan, [facility] [address] 38739- 2984 15 Jan, 2017 Anxiety F41.9 and Chronic pain G89.29 [facility] [address] 86393- 2203 Dec, Anxiety F41.9 and Chronic pain G89.29 [facility] [address] 05055- 3670 Nov, Chronic pain G89.29 [facility] [address] 98676- 7051 Nov, Anxiety F41.9 [facility] [address] 05791- 7002 Nov, Chronic pain G89.29 ; Essential hypertension I10 and Other emphysema J43.8 [facility] [address] [place] [address] 64589- 3856 Oct, Anxiety F41.9 [facility] [address] 27869- 9802 Oct, [facility] [address] 39421- 7470 Oct, Chronic pain G89.29 [facility] [address] 12027- 3237 September, Recurrent UTI N39.0 ; Neuropathy G62.9 and Anxiety F41.9 [facility] [address] [place] [address] 91652- 0828 September, [facility] [address] [place] [address] 38836- 1034 September, Chronic pain G89.29 [facility] [address] [place] [address] 70963- 9111 September, [facility] [address] 34897- 7892 Aug, Post-traumatic stress disorder, chronic F43.12 ; Chronic urinary tract infection N39.0 ; Gastroesophageal reflux disease without esophagitis K21.9 ; Chronic pain G89.29 ; Essential hypertension I10 and Tobacco abuse Z72.0 [facility] [address] [place] [address] 54302 -5649 Aug, [facility] [address] 63721- 5624 Aug, Chronic pain G89.29 [facility] [address] 57178- 3300 Aug, Insomnia, unspecified type G47.00 [facility] [address] [place] [address] 90956- 7394 Aug, [facility] [address] [place] [address] 16831- 2562 Jul, Chronic pain G89.29 [facility] [address] [place] [address] 95655- 4356 Jul, [facility] [address] 97571- 7134 Jul, [facility] [address] [place] [address] 74621- 6364 Jul, [facility] [address] 61079- 8279 15 Jul, 2016 Recurrent UTI (urinary tract infection) N39.0 [facility] [address] [place] [address] 73109- 2783 14 Jul, 2016 [facility] [address] [place] [address] 36753- 0159 27 Jun, 2016 Chronic pain G89.29 [facility] [address] [place] [address] 76102- 2774 17 Jun, 2016 [facility] [address] [place] [address] 40190- 7131 Jun, [facility] [address] [place] [address] 08201- 4478 May, Chronic pain G89.29 [facility] [address] [place] [address] 05281- 3826 May, Weight loss R63.4 and Shortness of breath R06.02 [facility] [address] [place] [address] 77951- 6502 May, Chronic pain G89.29 ; Weight loss R63.4 and Tobacco abuse Z72.0 [facility] [address] [place] [address] 24859- 2138 May, [facility] [address] [place] [address] 96460- 8064 May, Hypoxia R09.02 [facility] [address] [place] [address] 47970- 5193 May, [facility] [address] [place] [address] 17863- 1703 May, Pulmonary emphysema, unspecified emphysema type J43.9 [facility] [address] [place] [address] 14710 -9406 May, [facility] [address] [place] [address] 56570- 9489 May, [facility] [address] [place] [address] 67565- 8275 May, [facility] [address] 54616- 6448 May, Chronic pain G89.29 ; Encounter for immunization Z23 ; Right anterior knee pain M25.561 and Cough R05 [facility] [address] 37056- 4201 Apr, Chronic pain G89.29 [facility] [address] [place] [address] 90375- 8647 Apr, [facility] [address] 04867- 2799 Apr, Generalized anxiety disorder F41.1 and Depression, unspecified depression type F32.9 [facility] [address] 72116- 5542 Apr, Chronic pain G89.29 ; Hypokalemia E87.6 and Insomnia, unspecified type G47.00 [facility] [address] [place] [address] 69450- 1247 Apr, [facility] [address] [place] [address] 95975- 3913 Apr, Chronic pain G89.29 [facility] [address] [place] [address] 39844- 8173 Apr, [facility] [address] [place] [address] 22999- 8507 Mar, [facility] [address] [place] [address] 32663- 8949 Mar, Insomnia, unspecified type G47.00 [facility] [address] [place] [address] 59316- 6952 Mar, Chronic pain G89.29 [facility] [address] [place] [address] 73076- 8362 Mar, [facility] [address] [address]- 8322 Feb, [facility] [address] [address]- 4914 Feb, [facility] [address] [place] [address] 57104- 5561 Feb, [facility] [address] [place] [address] 83511- 3587 Feb, [facility] [address] [place] [address] 36408- 5307 Feb, [facility] [address] [place] [address] 58811- 5251 29 Jan, 2016 [facility] [address] [place] [address] 07635- 9972 26 Jan, 2015 [facility] [address] [address]- 1760 20 Jan, 2015 [facility] [address] [place] [address] 36787- 1997 13 Jan, 2015 [facility] [address] [address]- 5718 12 Jan, 2016 [facility] [address] [place] [address] 03582- 4379 07 Jan, 2015 Chronic pain G89.29 [facility] [address] [address]- 1613 Jan, 2015 Chronic pain G89.29 and Fibromyalgia M79.7 [facility] [address] [address]- 4167 Dec, Depression, unspecified depression type F32.9 and Generalized anxiety disorder 300.02 [facility] [address] [address]- 5573 Dec, Dysthymia F34.1 ; Insomnia, unspecified type G47.00 and Chronic pain G89.29 [facility] [address] [facility] [id number] [place] [address] 58775- 3996 Dec, Chronic pain G89.29 [facility] [id number] [place] [address] 95519 2546 Dec, Insomnia, unspecified type G47.00 [facility] [address] [facility] [id number] [place] [address] 99595 2547 Dec, Fibromyalgia M79.7 and Chronic pain G89.29 [facility] [address] [place] [address] 26501- 1856 Dec, [facility] [address] [place] [address] 54692 2546 Dec, [facility] [address] [place] [address] 31544- 0047 Dec, [facility] [address] [place] [address] 59700 2546 Dec, [facility] [address] [place] [address] 18736- 0441 Dec, Chronic pain G89.29 [facility] [address] [place] [address] 85630 2549 Dec, [facility] [address] [place] [address] 90955 2547 Dec, [facility] [id number] [place] [address] 64885 2546 Dec, [facility] [id number] [place] [address] 72826 2540 Dec, Chronic pain G89.29 and Dysthymia F34.1 [facility] [id number] [place] [address] 61565 2540 Nov, [facility] [address] [place] [address] 32582- 8638 Nov, Hypokalemia E87.6 and Chronic pain G89.29 [facility] [address] 49293- 8401 Nov, Back pain M54.9 and Pain in right knee M25.561 [facility] [address] 19902- 3764 Nov, [facility] [address] 64619- 9582 Nov, Chronic pain G89.29 [facility] [address] 05092- 3118 Nov, Chronic pain G89.29 ; Weight loss R63.4 ; Bone pain M89.8X9 and Insomnia, unspecified type G47.00 [facility] [address] 08277- 8585 Nov, Chronic pain G89.29 [facility] [address] 39236- 7879 Nov, Chronic pain G89.29 [facility] [address] 24554- 0178 30 Oct, 2015 Chronic pain G89.29 [facility] [address] [place] [address] 83883- 0249 Oct, UTI symptoms R39.9 [facility] [address] [place] [address] 24512- 7619 27 Oct, 2015 Chronic pain G89.29 [facility] [address] 51487- 0553 20 Oct, 2015 Chronic pain G89.29 [facility] [address] [place] [address] 15696- 8379 13 Oct, 2015 Chronic pain G89.29 [facility] [address] 18930- 4897 Oct, Right upper quadrant abdominal pain R10.11 [facility] [address] [address]- 2900 Oct, Chronic pain G89.29 [facility] [address] [address]- 7750 Oct, [facility] [address] [place] [address] 14924- 8303 September, Chronic pain G89.29 [facility] [address] [place] [address] 66041- 8259 September, Dysuria R30.0 and Urinary tract infection without hematuria , site unspecified N39.0 [facility] [address] [place] [address] 16020- 9008 September, [facility] [address] [place] [address] 50085- 3822 September, Dysuria R30.0 [facility] [address] [place] [address] 16740- 5350 September, Chronic pain G89.29 [facility] [address] [place] [address] 50811- 3750 September, Chronic pain G89.29 and Essential hypertension I10 [facility] [address] [address]- 4033 September, [facility] [address] [place] [address] 30688- 8538 September, [facility] [address] [place] [address] 50070- 8842 September, [facility] [address] [place] [address] 13554- 6840 Aug, UTI symptoms R39.9 [facility] [address] [address]- 8502 Aug, Dysuria R30.0 [facility] [address] [address]- 9899 Aug, [facility] [id number] [place] [address] 34408- 3564 Aug, [facility] [id number] [place] [address] 98527- 0492 Aug, [facility] [id number] [place] [address] 15144- 9796 Aug, Chronic pain G89.29 [facility] [id number] [place] [address] 81874- 8315 Aug, Dysthymia F34.1 [facility] [id number] [place] [address] 53331- 9039 Aug, Conjunctivitis, unspecified conjunctivitis type, unspecified laterality H10.9 [facility] [id number] [place] [address] 11098- 8384 Jul, Chronic pain G89.29 ; Back pain M54.9 ; Tobacco abuse Z72.0 and Weight decrease R63.4 [facility] [id number] [place] [address] 42864- 2298 Jul, [facility] [id number] [place] [address] 51527- 3693 Jul, [facility] [id number] [place] [address] 75194- 3840 24 Jul, 2015 Chronic pain G89.29 [facility] [address] [address] Jul, [facility] [id number] [place] [address] 68554- 6645 Jul, [facility] [id number] [place] [address] [id number]- 1035 Jul, [facility] [id number] [place] [address] 07466- 1593 17 Jul, 2015 [facility] [address] [address]- 12[address] 17 Jul, 2015 Chronic pain G89.29 [facility] [address] [address]- 6[address] 16 Jul, 2015 Chronic pain G89.29 [facility] [id number] [place] [address] 86548- 1605 15 Jul, 2015 [facility] [id number] [place] [address] 36102- 5579 Jul, [facility] [id number] [place] [address] 23634- 1280 Jul, [facility] [id number] [place] [address] 65414- 3094 Jul, [facility] [id number] [place] [address] 08005- 9152 Jun, [facility] [id number] [place] [address] 42048- 5459 Jun, Depression, unspecified depression type F32.9 [facility] [id number] [place] [address] 31272- 9966 Jun, Pain in right knee M25.561 [facility] [id number] [place] [address] 26021- 9014 24 Jun, 2015 Chronic pain G89.29 ; Back pain M54.9 ; Bone pain M89.8X9 and Weight loss R63.4 [facility] [id number] [place] [address] 22587- 9997 Jun, [facility] [id number] [place] [address] 61454- 6065 May, [facility] [address] [address] 9006 May, UTI symptoms R39.9 ; Pain in right knee M25.561 ; Right low back pain, with sciatica presence unspecified M54.5 ; Right foot pain M79.671 ; Hypokalemia E87.6 and Screening, lipid Z13.220 [facility] [id number] [place] [address] 27244- 2156 May, [facility] [id number] [place] [address] 27601- 3881 May, [facility] [id number] [place] [address] 72663- 5410 Mar, [facility] [id number] [place] [address] 78995- 0190 Mar, [facility] [id number] [place] [address] 83587- 5998 Mar, Hypokalemia E87.6 [facility] [address] [address]- 8405 Mar, Pain in right leg M79.604 ; Encounter for immunization Z23 ; Pain in right knee M25.561 and Hypokalemia E87.6 [facility] [id number] [place] [address] 52642- 7729 Jan, [facility] [id number] [place] [address] 82640- 6886 Jan, [facility] [id number] [place] [address] 25950 2540 Jan, Abdominal pain, generalized 789.07 [facility] [id number] [place] [address] 10610 2548 Jan, Abdominal pain, generalized 789.07 [facility] [id number] [place] [address] 77833- 7378 Dec, [facility] [id number] [place] [address] 92765- 6871 Dec, [facility] [id number] [address]- 3406 Dec, [facility] [id number] [place] [address] 72231- 2168 Nov, Hallux valgus 735.0 and Hammertoe 735.4 [facility] [address] [address]- 4736 Nov, [facility] [id number] [place] [address] 03347- 7011 Nov, Hallux valgus 735.0 and Hammer toe 735.4 [facility] [id number] [place] [address] 20643- 6336 Oct, [facility] [id number] [place] [address] 39053- 3256 Oct, [facility] [id number] [place] [address] 89945- 5661 Oct, Pre-op evaluation V72.84 [facility] [address] [address]- 3186 Oct, [facility] [id number] [place] [address] 61836- 9764 Oct, [facility] [address] [address]- 7764 September, [facility] [address] [address] 2546 September, [facility] [id number] [address]- 3976 September, Hallux valgus (acquired) 735.0 and Other hammer toe ( acquired) 735.4 [facility] [address] [address]- 2546 Aug, [facility] [id number] [place] [address] 00087- 9522 Aug, [facility] [place] [facility] [address] [id number] [place] [address]- 2741 Jul, [facility] [place] [facility] [address] [id number] [place] [address]- 2599 Jul, [facility] [place] [facility] [address] [id number] [place] [address]- 0673 Jul, [facility] [place] [facility] [address] [id number] [place] [address]- 9734 Jul, [facility] [place] [facility] [address] [id number] [place] [address]- 3455 Jul, [facility] [place] [facility] [address] [id number] [place] [address]- 2052 Jul, [facility] [place] [facility] [address] [facility] [id number] [place] [address]- 7114 Jul, [facility] [place] [facility] [address] [id number] [place] [address]- 1717 Jul, [facility] [place] [facility] [address] [id number] [place] [address]- 0758 Jun, [facility] [place] [facility] [address] [facility] [id number] [place] [address]- 1393 Jun, [facility] [place] [facility] [address] [id number] [place] [address]- 9999 Jun, 2014 [facility] [place] [facility] [address] [id number] [place] [address]- 5790 Jun, [facility] [place] [facility] [address] [id number] [place] [address]- 9772 Jun, [facility] [place] [facility] [address] [id number] [place] [address]- 5260 Jun, [facility] [place] [facility] [address] [facility] [id number] [place] [address]- 0355 Jun, [facility] [place] [facility] [address] [id number] [place] [address]- 4385 Jun, [facility] [address] [id number] [place] [address]- 1345 Jun, [facility] [place] [facility] [address] [id number] [place] [address]- 1766 Jun, [facility] [place] [facility] [address] [id number] [place] [address]- 9903 May, [facility] [place] [facility] [address] [id number] [place] [address]- 9624 May, [facility] [place] [facility] [address] [id number] [place] [address]- 7810 May, [facility] [place] [facility] [address] [id number] [place] [address]- 5048 May, [facility] [place] [facility] [address] [id number] [place] [address]- 0457 May, [facility] [address] [id number] [place] [address]- 1268 May, [facility] [place] [facility] [address] [id number] [place] [address]- 2888 May, [facility] [place] [facility] [address] [id number] [place] [address]- 2226 May, [facility] [place] [facility] [address] [id number] [place] [address]- 9081 May, [facility] [place] [facility] [address] [id number] [place] [address]- 2253 May, [facility] [place] [facility] [address] [id number] [place] [address]- 7700 May, [facility] [place] [facility] [address] [id number] [place] [address]- 7576 May, [facility] [place] [facility] [address] [id number] [place] [address]- 6135 May, [facility] [place] [facility] [address] [id number] [place] [address]- 4368 May, [facility] [place] [facility] [address] [id number] [place] [address]- 6616 May, [facility] [place] [facility] [address] [id number] [place] [address]- 6747 May, [facility] [place] [facility] [address] [id number] [place] [address]- 2220 May, [facility] [place] [facility] [address] [id number] [place] [address]- 1208 May, [facility] [place] [facility] [address] [id number] [place] [address]- 2197 Apr, [facility] [place] [facility] [address] [id number] [place] [address]- 8675 Apr, [facility] [place] [facility] [address] [id number] [place] [address]- 2653 Apr, [facility] [place] [facility] [address] [id number] [place] [address]- 2098 Apr, [facility] [place] [facility] [address] [id number] [place] [address]- 6374 Apr, [facility] [place] [facility] [address] [id number] [place] [address]- 7245 Apr, [facility] [place] [facility] [address] [id number] [place] [address]- 0329 Apr, [facility] [place] [facility] [address] [id number] [place] [address]- 9495 Apr, [facility] [place] [facility] [address] [id number] [place] [address]- 2203 Apr, [facility] [place] [facility] [address] [id number] [place] [address]- 7453 Mar, [facility] [place] [facility] [address] [id number] [place] [address]- 0508 Mar, [facility] [place] [facility] [address] [id number] [place] [address]- 0367 Mar, [facility] [place] [facility] [address] [id number] [place] [address]- 9173 Mar, [facility] [place] [facility] [address] [id number] [place] [address]- 5671 Mar, [facility] [place] [facility] [address] [id number] [place] [address]- 7407 Feb, [facility] [place] [facility] [address] [id number] [place] [address]- 7536 Feb, [facility] [place] [facility] [address] [id number] [place] [address]- 8842 Feb, [facility] [place] [facility] [address] [id number] [place] [address]- 7536 Feb, [facility] [place] [facility] [address] [id number] [place] [address]- 4249 Feb, [facility] [place] [facility] [address] [id number] [place] [address]- 9564 Feb, [facility] [place] [facility] [address] [id number] [place] [address]- 8225 Feb, [facility] [place] [facility] [address] [id number] [place] [address]- 1111 Feb, [facility] [place] [facility] [address] [id number] [address]- 2844 Feb, [facility] [place] [facility] [address] [id number] [place] 8034 Feb, [facility] [place] [facility] [address] [id number] [place] [address]- 8972 Feb, [facility] [place] [facility] [address] [id number] [place] 9714 Feb, [facility] [place] [facility] [address] [id number] [place] [address]- 7646 07 Feb, 2013 [facility] [place] [facility] [address] [id number] [place] [address]- 8328 Feb, [facility] [place] [facility] [address] [id number] [place] [address]- 1741 Feb, 2013 [facility] [place] [facility] [address] [id number] [place] [address]- 7321 Feb, [facility] [place] [facility] [address] [id number] [place] [address]- 6119 Jan, 2013 [facility] [place] [facility] [address] [id number] [place] [address]- 2159 23 Jan, 2013 [facility] [place] [facility] [address] [id number] [place] [address]- 7638 20 Jan, 2014 [facility] [place] [facility] [address] [id number] [place] [address]- 8747 19 Jan, 2013 [facility] [place] [facility] [address] [id number] [place] [address]- 3397 11 Jan, 2014 [facility] [place] [facility] [address] [id number] [place] [address]- 1476 Jan, [facility] [place] [facility] [address] [id number] [place] [address]- 8786 Jan, [facility] [place] [facility] [address] [id number] [place] [address]- 9608 Jan, 2013 [facility] [place] [facility] [address] [id number] [place] [address]- 9082 Dec, [facility] [place] [facility] [address] [id number] [place] [address]- 0516 Dec, [facility] [place] [facility] [address] [id number] [place] [address]- 4965 Nov, [facility] [place] [facility] [address] [id number] [place] [address]- 6843 Nov, [facility] [place] [facility] [address] [id number] [place] [address]- 5952 Nov, [facility] [place] [facility] [address] [id number] [place] [address]- 6852 Nov, [facility] [place] [facility] [address] [id number] [place] [address]- 1585 Nov, [facility] [place] [facility] [address] [id number] [place] [address]- 5691 Nov, [facility] [place] [facility] [address] [id number] [place] [address]- 8100 Nov, [facility] [place] [facility] [address] [id number] [place] [address]- 8364 Nov, [facility] [place] [facility] [address] [id number] [place] [address]- 3242 Nov, [facility] [place] [facility] [address] [id number] [place] [address]- 8013 Oct, [facility] [place] [facility] [address] [id number] [place] [address]- 7618 Oct, [facility] [place] [facility] [address] [id number] [place] [address]- 3185 Oct, [facility] [place] [facility] [address] [id number] [place] [address]- 2734 Oct, [facility] [place] [facility] [address] [id number] [place] [address]- 4881 Oct, [facility] [place] [facility] [address] [id number] [place] [address]- 7162 Oct, [facility] [place] [facility] [address] [id number] [place] [address]- 2292 September, [facility] [place] [facility] [address] [id number] [place] [address]- 7326 September, [facility] [place] [facility] [address] [id number] [place] [address]- 5507 September, [facility] [address] [id number] [place] 3814 September, [facility] [address] [id number] [place] [address]- 8774 September, [facility] [address] [id number] [place] [address]- 2688 September, [facility] [address] [id number] [place] [address]- 7417 September, [facility] [address] [id number] [place] 2150 September, [facility] [address] [id number] [place] [address]- 5851 September, [facility] [address] [id number] [place] [address]- 0710 September, [facility] [address] [id number] [place] [address]- 5331 September, [facility] [address] [id number] [place] [address]- 6692 September, [facility] [address] [id number] [place] [address]- 1120 September, [facility] [address] [id number] [place] [address]- 9797 September, [facility] [address] [id number] [place] [address]- 6970 September, [facility] [place] [facility] [address] [id number] [place] 9770 September, [facility] [place] [facility] [address] [id number] [place] 2165 September, [facility] [address] [id number] [place] [address]- 9425 September, [facility] [place] [facility] [address] [id number] [place] [address]- 7157 September, [facility] [place] [facility] [address] [id number] [place] [address]- 7931 September, [facility] [place] [facility] [address] [id number] [place] [address]- 3459 Aug, [facility] [place] [facility] [address] [id number] [place] [address]- 5312 Aug, [facility] [place] [facility] [address] [id number] [place] [address]- 9182 Aug, [facility] [place] [facility] [address] [id number] [place] [address]- 8563 Aug, [facility] [place] [facility] [address] [id number] [place] [address]- 9848 Aug, [facility] [place] [facility] [address] [id number] [place] [address]- 1167 Aug, [facility] [place] [facility] [address] [id number] [place] [address]- 2721 Aug, [facility] [place] [facility] [address] [id number] [place] [address]- 1467 Aug, [facility] [place] [facility] [address] [id number] [place] [address]- 2815 Aug, [facility] [place] [facility] [address] [id number] [place] [address]- 0373 Aug, [facility] [place] [facility] [address] [id number] [place] [address]- 6166 Aug, [facility] [place] [facility] [address] [id number] [place] [address]- 0673 Aug, [facility] [place] [facility] [address] [id number] [place] [address]- 4988 Aug, [facility] [place] [facility] [address] [id number] [place] [address]- 7575 Aug, [facility] [place] [facility] [address] [id number] [place] [address]- 3005 Aug, [facility] [place] [facility] [address] [id number] [place] [address]- 4927 Jul, [facility] [place] [facility] [address] [id number] [place] [address]- 1696 Jul, [facility] [place] [facility] [address] [id number] [place] [address]- 9370 Jul, [facility] [place] [facility] [address] [id number] [place] [address]- 8433 Jul, [facility] [place] [facility] [address] [id number] [place] [address]- 4317 Jul, [facility] [place] [facility] [address] [id number] [place] [address]- 3879 Jul, [facility] [place] [facility] [address] [id number] [place] [address]- 7998 Jul, [facility] [place] [facility] [address] [id number] [place] [address]- 1127 Jul, [facility] [place] [facility] [address] [id number] [place] [address]- 4140 Jul, [facility] [place] [facility] [address] [id number] [place] [address]- 9113 Jul, [facility] [place] [facility] [address] [id number] [place] [address]- 1389 Jul, [facility] [place] [facility] [address] [id number] [place] [address]- 5406 Jul, [facility] [place] [facility] [address] [id number] [place] [address]- 6038 Jul, [facility] [place] [facility] [address] [id number] [place] [address]- 9251 Jul, [facility] [place] [facility] [address] [id number] [place] [address]- 3868 Jul, [facility] [place] [facility] [address] [id number] [place] [address]- 1994 Jun, [facility] [place] [facility] [address] [id number] [place] [address]- 8056 Jun, [facility] [place] [facility] [address] [id number] [place] [address]- 5466 Jun, [facility] [place] [facility] [address] [id number] [place] [address]- 6729 Jun, [facility] [place] [facility] [address] [id number] [place] [address]- 0178 Jun, [facility] [place] [facility] [address] [id number] [place] [address]- 4886 Jun, [facility] [place] [facility] [address] [id number] [place] [address]- 3311 May, [facility] [place] [facility] [address] [id number] [place] [address]- 7336 May, [facility] [place] [facility] [address] [id number] [place] [address]- 3552 May, [facility] [place] [facility] [address] [id number] [place] [address]- 7974 May, [facility] [place] [facility] [address] [id number] [place] [address]- 9490 May, [facility] [place] [facility] [address] [id number] [place] [address]- 9668 May, [facility] [place] [facility] [address] [id number] [place] [address]- 1298 May, [facility] [place] [facility] [address] [id number] [place] [address]- 3893 May, [facility] [place] [facility] [address] [id number] [place] [address]- 3770 May, [facility] [address] [id number] [place] [address]- 0507 May, [facility] [place] [facility] [address] [id number] [place] [address]- 2318 May, [facility] [place] [facility] [address] [id number] [place] [address]- 4927 May, [facility] [place] [facility] [address] [id number] [place] [address]- 4005 May, [facility] [place] [facility] [address] [id number] [place] [address]- 7982 May, [facility] [place] [facility] [address] [id number] [place] [address]- 2841 May, [facility] [place] [facility] [address] [id number] [place] [address]- 3574 Apr, [facility] [place] [facility] [address] [id number] [place] [address] Apr, [facility] [place] [facility] [address] [id number] [place] [address] Apr, [facility] [place] [facility] [address] [id number] [place] [address] Apr, [facility] [place] [facility] [address] [id number] [place] [address] Apr, [facility] [place] [facility] [address] [id number] [place] [address] Apr, [facility] [place] [facility] [address] [id number] [place] [address] Apr, [facility] [place] [facility] [address] [id number] [place] [address] Apr, [facility] [place] [facility] [address] [id number] [place] [address] Apr, [facility] [place] [facility] [address] [id number] [place] [address] Apr, [facility] [address] [id number] [place] [address] Mar, [facility] [address] [id number] [place] [address] Mar, [facility] [address] [id number] [place] [address] Mar, [facility] [address] [id number] [place] [address] Mar, [facility] [address] [id number] [place] [address] Mar, [facility] [address] [id number] [place] [address] Mar, [facility] [address] [id number] [place] [address] Mar, [facility] [address] [id number] [place] [address] Mar, [facility] [address] [id number] [place] [address] Mar, [facility] [address] [id number] [place] [address] Mar, [facility] [address] [id number] [place] [address] Mar, [facility] [address] [id number] [place] [address] Mar, [facility] [place] [facility] [address] [id number] [place] [address] Mar, [facility] [place] [facility] [address] [id number] [place] [address] Mar, [facility] [address] [id number] [place] [address] Mar, [facility] [place] [facility] [address] [id number] [place] [address] 18 Mar, 2013 [facility] [place] [facility] [address] [id number] [place] [address] Mar, [facility] [place] [facility] [address] [id number] [place] [address] Mar, [facility] [place] [facility] [address] [id number] [place] [address] Mar, [facility] [place] [facility] [address] [id number] [place] [address] Mar, [facility] [place] [facility] [address] [id number] [place] [address] Mar, [facility] [place] [facility] [address] [id number] [place] [address] Mar, [facility] [place] [facility] [address] [id number] [place] [address] Mar, [facility] [place] [facility] [address] [id number] [place] [address] Feb, [facility] [place] [facility] [address] [id number] [place] [address] Feb, [facility] [place] [facility] [address] [id number] [place] [address] Feb, [facility] [place] [facility] [address] [id number] [place] [address] 16 Feb, 2013 [facility] [place] [facility] [address] [id number] [place] [address] 15 Feb, 2013 [facility] [place] [facility] [address] [id number] [place] [address] Feb, [facility] [place] [facility] [address] [facility] [id number] [place] [address] Feb, [facility] [place] [facility] [address] [id number] [place] [address] Feb, [facility] [address] [id number] [place] [address] Feb, [facility] [place] [facility] [address] [id number] [place] [address] Feb, [facility] [place] [facility] [address] [id number] [place] [address] 30 Jan, 2013 [facility] [place] [facility] [address] [id number] [place] [address]- [address] 26 Jan, 2013 [facility] [place] [facility] [address] [id number] [place] [address]- [address] 24 Jan, 2013 [facility] [place] [facility] [address] [id number] [place] [address]- [address] 23 Jan, 2013 [facility] [place] [facility] [address] [id number] [place] [address]- [address]66 17 Jan, 2013 [facility] [place] [facility] [address] [id number] [place] [address]- [address] Dec, [facility] [place] [facility] [address] [id number] [place] [address]- [address] Dec, [facility] [place] [facility] [address] [id number] [place] [address]- [address] Dec, [facility] [place] [facility] [address] [id number] [place] [address]- [address] 15 Dec, 2012 [facility] [place] [facility] [address] [id number] [place] [address] 14 Dec, 2012 [facility] [place] [facility] [address] [id number] [place] [address]- [address] Dec, [facility] [place] [facility] [address] [id number] [place] [address]- 6[address] Dec, [facility] [place] [facility] [address] [id number] [place] [address]- [address] Nov, [facility] [place] [facility] [address] [id number] [place] [address] 16 Nov, 2012 [facility] [address] [id number] [place] [address] 15 Nov, 2012 [facility] [place] [facility] [address] [id number] [place] [address] 05 Nov, 2012 [facility] [address] [id number] [place] [address] Nov, [facility] [place] [facility] [address] [id number] [place] [address] Oct, [facility] [address] [id number] [place] [address]- [address] Oct, [facility] [place] [facility] [address] [id number] [place] [address] Oct, [facility] [address] [id number] [place] [address]- [address]26 September, [facility] [address] [id number] [place] [address] September, [facility] [address] [id number] [place] [address]- 77[address] September, [facility] [address] [id number] [place] [address]- 59[address] September, [facility] [place] [facility] [address] [id number] [place] [place] [address] September, [facility] [address] [id number] [place] [address] September, [facility] [place] [facility] [address] [id number] [place] [address] September, [facility] [place] [facility] [address] [id number] [place] [address] Aug, [facility] [place] [facility] [address] [id number] [place] [address] 23 Aug, 2012 [facility] [place] [facility] [address] [id number] [place] [address] 4514 11 Aug, 2012 [facility] [place] [facility] [address] [id number] [place] [address] 8161 29 Jul, 2012 [facility] [place] [facility] [address] [id number] [place] [address] 5371 27 Jul, 2012 [facility] [place] [facility] [address] [id number] [place] [address] 3160 26 Jul, 2012 [facility] [place] [facility] [address] [id number] [place] [address]- 2032 20 Jul, 2012 [facility] [place] [facility] [address] [id number] [place] [address]- 1307 18 Jul, 2012 [facility] [place] [facility] [address] [facility] [id number] [place] [address]- 5[address] 18 Jul, 2012 [facility] [place] [facility] [address] [id number] [place] [address] 4153 13 Jul, 2012 [facility] [place] [facility] [address] [id number] [place] [address]- 3853 28 Jun, 2012 [facility] [place] [facility] [address] [facility] [id number] [place] [address]- 5329 27 Jun, 2012 [facility] [place] [facility] [address] [facility] [id number] [place] [address]- 6417 22 Jun, 2012 [facility] [place] [facility] [address] [id number] [place] [address]- 6680 20 Jun, 2012 [facility] [place] [facility] [address] [id number] [place] [address]- 1136 15 Jun, 2012 [facility] [place] [facility] [address] [id number] [place] [address]- 0937 15 Jun, 2012 [facility] [place] [facility] [address] [facility] [id number] [place] [address]- 0275 13 Jun, 2012 [facility] [place] [facility] [address] [id number] [place] [address]- 1566 Jun, [facility] [address] [id number] [place] [address]- 8436 Jun, [facility] [place] [facility] [address] [id number] [place] [address]- 2546 Jun, [facility] [address] [id number] [place] [address]- 7466 May, [facility] [place] [facility] [address] [id number] [place] [address] 2543 May, [facility] [address] [id number] [place] [address]- 4666 May, [facility] [address] [id number] [place] [address] May, [facility] [address] [id number] [place] [address]- 2909 May, [facility] [address] [id number] [place] [address]- 3695 May, [facility] [address] [id number] [place] [address]- 9566 31 Apr, 2012 [facility] [address] [id number] [place] [address] 2546 31 Apr, 2012 [facility] [address] [id number] [place] [address] 2546 Apr, [facility] [place] [facility] [address] [id number] [place] [address] 254 28 Apr, 2012 [facility] [place] [facility] [address] [id number] [place] [address] 2546 26 Apr, 2012 [facility] [place] [facility] [address] [id number] [place] [address]- 2546 20 Apr, 2012 [facility] [place] [facility] [address] [id number] [place] [address]- 3028 Apr, [facility] [place] [facility] [address] [id number] [place] [address]- 7645 Mar, [facility] [place] [facility] [address] [id number] [place] [address]- 8067 Mar, [facility] [place] [facility] [address] [facility] [id number] [place] [address]- 4791 Mar, [facility] [place] [facility] [address] [id number] [place] [address]- 7673 Mar, [facility] [place] [facility] [address] [id number] [place] [address]- 5446 Mar, [facility] [place] [facility] [address] [id number] [address] 8[address] Mar, [facility] [place] [facility] [address] [id number] [place] [address]- 4918 Mar, [facility] [place] [facility] [address] [id number] [place] [address] 67[address] Mar, [facility] [place] [facility] [address] [id number] [place] [address] 56[address] Mar, [facility] [place] [facility] [address] [id number] [place] [address]- 7987 Mar, [facility] [place] [facility] [address] [id number] [place] [address]- 1044 Mar, [facility] [place] [facility] [address] [id number] [place] [address]- 5365 Mar, [facility] [place] [facility] [address] [id number] [place] [address]- 9594 Mar, [facility] [place] [facility] [address] [facility] [id number] [place] [address]- 50[address] Mar, [facility] [place] [facility] [address] [facility] [id number] [place] [address]- 3717 Mar, [facility] [place] [facility] [address] [id number] [place] [address]- 5048 Mar, [facility] [place] [facility] [address] [id number] [place] [address]- 8624 Mar, [facility] [place] [facility] [address] [id number] [place] [address]- 9671 Feb, [facility] [place] [facility] [address] [id number] [place] [address]- 5295 Feb, 2011 [facility] [place] [facility] [address] [id number] [place] [address]- 1742 Feb, [facility] [place] [facility] [address] [id number] [place] [address]- 2512 Feb, [facility] [place] [facility] [address] [id number] [place] [address]- 5321 Feb, [facility] [place] [facility] [address] [id number] [place] [address]- 1871 Feb, [facility] [place] [facility] [address] [id number] [place] [address]- 8855 Feb, [facility] [place] [facility] [address] [id number] [place] [address]- 2044 Feb, [facility] [place] [facility] [address] [facility] [id number] [place] [address]- 9362 Feb, [facility] [place] [facility] [address] [id number] [place] [address]- 2296 Feb, [facility] [place] [facility] [address] [id number] [place] [address]- 1771 Feb, [facility] [place] [facility] [address] [id number] [place] [address]- 4170 27 Jan, 2011 [facility] [place] [facility] [address] [id number] [place] [address]- 4958 25 Jan, 2012 [facility] [place] [facility] [address] [id number] [place] [address]- 2792 13 Jan, 2012 [facility] [place] [facility] [address] [id number] [place] [address]- 2680 12 Jan, 2012 [facility] [place] [facility] [address] [id number] [place] [address]- 1851 Jan, [facility] [place] [facility] [address] [id number] [place] [address]- 6414 Dec, [facility] [place] [facility] [address] [id number] [place] [address]- 0742 Dec, [facility] [place] [facility] [address] [id number] [place] [address]- 4546 Dec, [facility] [place] [facility] [address] [id number] [place] [address]- 9026 Dec, [facility] [place] [facility] [address] [id number] [place] [address]- 7395 Dec, [facility] [place] [facility] [address] [id number] [place] [address]- 5018 Dec, [facility] [place] [facility] [address] [id number] [place] [address]- 9982 Dec, [facility] [place] [facility] [address] [id number] [place] [address]- 1837 Dec, [facility] [place] [facility] [address] [id number] [place] [address]- 2620 Nov, [facility] [place] [facility] [address] [id number] [place] [address]- 2977 Nov, [facility] [place] [facility] [address] [id number] [place] [address]- 0078 Nov, [facility] [place] [facility] [address] [id number] [place] [address]- 9818 Nov, [facility] [place] [facility] [address] [id number] [place] [address]- 1872 Nov, [facility] [place] [facility] [address] [id number] [place] [address]- 0470 Oct, [facility] [address] [id number] [place] [address]61 Oct, [facility] [place] [facility] [address] [id number] [place] [address]- 9467 September, [facility] [address] [id number] [place] [address]- 0406 September, [facility] [place] [facility] [address] [id number] [place] [address]- 6708 September, [facility] [address] [id number] [place] [address]- 9608 September, [facility] [place] [facility] [address] [id number] [place] [address]- 4482 September, [facility] [address] [id number] [place] [address]- 1230 September, [facility] [place] [facility] [address] [id number] [place] [address]- 3987 September, [facility] [place] [facility] [address] [id number] [place] [address]- 4805 September, [facility] [place] [facility] [address] [id number] [place] [address]- 5422 September, [facility] [place] [facility] [address] [id number] [place] [address]- 3169 September, [facility] [place] [facility] [address] [id number] [place] [address]- 4988 September, [facility] [place] [facility] [address] [id number] [place] [address]- 6301 September, [facility] [place] [facility] [address] [id number] [place] [address]- 4268 September, [facility] [place] [facility] [address] [id number] [place] [address]- 5832 September, [facility] [place] [facility] [address] [id number] [place] [address]- 0268 24 Aug, 2011 [facility] [address] [id number] [place] [address]- 2677 20 Aug, 2011 [facility] [address] [id number] [place] [address]- 6896 13 Aug, 2011 [facility] [address] [id number] [place] [address]- 7200 11 Aug, 2011 [facility] [address] [id number] [place] [address]- 8944 23 Jul, 2011 [facility] [address] [id number] [place] [address]- 8760 13 Jul, 2011 [facility] [address] [id number] [place] [address]- 4311 13 Jul, 2011 [facility] [address] [id number] [place] [address]- 2384 28 Jun, [address] [facility] [address] [id number] [place] [id number] 26 Jun, 2011 [facility] [address] [id number] [place] [address]- 1676 13 Jun, 2011 [facility] [address] [id number] [place] [address]- 9613 10 Jun, 2011 [facility] [address] [id number] [place] [address]- 1206 07 Jun, 2011 [facility] [address] [id number] [place] [address]- 7256 07 Jun, 2011 [facility] [place] [facility] [address] [id number] [place] [address]- 2826 03 Jun, 2011 [facility] [place] [facility] [address] [id number] [place] [address]- 6636 02 Jun, 2011 [facility] [place] [facility] [address] [id number] [place] [address]- 8675 31 May, 2011 [facility] [address] [id number] [place] [address]- 7860 30 May, 2011 [facility] [address] [id number] [place] [address]- 8586 May, [facility] [address] [id number] [place] [address]- 4172 May, [facility] [address] [id number] [place] [address]- 4990 May, [facility] [address] [id number] [place] [address]- 3233 May, [facility] [address] [id number] [place] [address]- 5415 May, [facility] [address] [id number] [place] [address]- 7441 May, [facility] [place] [facility] [address] [id number] [place] [address]- 7320 May, [facility] [address] [id number] [place] [address]- 5739 May, [facility] [place] [facility] [address] [id number] [place] [address]- 3281 May, [facility] [address] [id number] [place] [address]- 4607 May, [facility] [place] [facility] [address] [id number] [place] [address]- 9063 May, [facility] [place] [facility] [address] [id number] [place] [address]- 6222 May, [facility] [place] [facility] [address] [id number] [place] [address]- 4300 30 Apr, 2011 [facility] [place] [facility] [address] [id number] [place] [address]- 2886 16 Apr, 2011 [facility] [place] [facility] [address] [id number] [place] [address]- 0313 05 Apr, 2011 [facility] [place] [facility] [address] [id number] [place] [address]- 0336 17 Mar, 2011 [facility] [place] [facility] [address] [id number] [place] [address] 2546 Mar, [facility] [place] [facility] [address] [id number] [place] [address]- 9826 31 Feb, 2011 [facility] [place] [facility] [address] [id number] [place] [address] 2546 26 Feb, 2011 [facility] [place] [facility] [address] [id number] [place] [address]- 6439 Feb, [facility] [place] [facility] [address] [id number] [place] [address]- 0123 20 Feb, 2011 [facility] [place] [facility] [address] [id number] [place] [address]- 3566 13 Feb, 2011 [facility] [place] [facility] [address] [id number] [place] [address]- 1692 28 Apr, 2010 [facility] [place] [facility] [address] [id number] [place] [address] 2546 22 Apr, 2010 [facility] [place] [facility] [address] [facility] [id number] [place] [address] 254 16 Apr, 2010 [facility] [place] [facility] [address] [id number] [place] [address] 2546 15 Apr, 2010 [facility] [place] [facility] [address] [id number] [place] [address] 2546 15 Apr, 2010 [facility] [place] [facility] [address] [id number] [place] [address] 2546 Apr, [facility] [place] [facility] [address] [id number] [place] [address] 2546 24 Mar, 2010 [facility] [place] [facility] [address] [id number] [place] [address] 254 17 Mar, 2010 [facility] [id number] [address]- 5476 17 Mar, 2010 [facility] [id number] [address]- 8304 28 Feb, 2010 [facility] [id number] [address]- 0061 Feb, [facility] [id number] [place] [address]- 0306 Feb, [facility] [id number] [address]- 0121 Feb, [facility] [id number] [place] [address] 78283- 1276 Dec, [facility] [id number] [address]- 5288 Dec, [facility] [id number] [place] [address]- 6153 Oct, [facility] [id number] [address]- 8439 Mar, [facility] [id number] [address]- 6077 Mar, [facility] [id number] [address]- 3558 September, IMMUNIZATIONS No Known Immunizations SOCIAL HISTORY Never Assessed REASON FOR VISIT EMR-[facility] PLAN OF CARE VITAL SIGNS MEDICATIONS Unknown [...]
--- OUTSIDE RECORDS SUMMARY | 2018-09-19 09:03 | XMS REPORT ---
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 Name Role Phone Migration, Doctor Unavailable Unavailable PROBLEMS Type Condition ICD9-CM Code SDQ65-PP Code Onset Dates Condition Status SNOMED Code Problem Hypokalemia E87.6 Active 125854037 Problem Generalized anxiety disorder F41.1 Active 92831072 Problem Pain in right knee M25.561 Active 41842224 Problem Right low back pain, with sciatica presence unspecified M54.5 Active 473857610 Problem Right foot pain M79.671 Active 15260978 Problem UTI symptoms R39.9 Active 57739195 Problem Essential hypertension I10 Active 45911154 Problem Gastroesophageal reflux disease without esophagitis K21.9 Active 830431850 Problem Weight decrease R63.4 Active 873605679 Problem Depression, unspecified depression type F32.9 Active 37417973 Problem Right upper quadrant abdominal pain R10.11 Active 899274015 Problem Tobacco abuse Z72.0 Active 86146190 Problem Insomnia, unspecified type G47.00 Active 873394431 Problem Weight loss R63.4 Active 022535088 Problem Post-traumatic stress disorder, chronic F43.12 Active 85597706 Problem Pulmonary emphysema, unspecified emphysema type J43.9 Active 04268934 Problem Neuropathy G62.9 Active 230929380 Problem Anxiety F41.9 Active 18228222 Problem Other emphysema J43.8 Active 16333036 Problem Other chronic pain G89.29 Active 13770025 Problem Chronic pain G89.29 Active 48880530 Problem Opioid use disorder, moderate, dependence F11.20 Active 28780054 Problem Back pain M54.9 Active 512310173 Problem Bone pain M89.8X9 Active 35185904 Problem Panic attacks F41.0 Active 787950368 Problem Kidney stones N20.0 Active 23611961 Problem Renal calculus, right N20.0 Active 48273710 Problem Generalized abdominal pain R10.84 Active 992901304 ALLERGIES No Information ENCOUNTERS Encounter Location Date Diagnosis [facility] [address] [address] 386[address] Feb, [facility] [id number] [place] [address] 53779- 4904 Dec, [facility] [id number] [place] [address] 57236- 9241 Dec, [facility] [id number] [place] [address] 42012- 2447 Dec, Medicare welcome exam Z00.00 [facility] [id number] [place] [address] 09937- 1946 17 Nov, 2017 Opioid use disorder, moderate, dependence F11.20 [facility] [id number] [place] [address] 53570- 0478 16 Nov, 2017 Pelvic pain R10.2 ; Acute pyelonephritis N10 and Essential hypertension I10 [facility] [id number] [place] [address] 89665- 3485 28 Oct, 2017 Medicare welcome exam Z00.00 [facility] [id number] [place] [address] 97888- 3617 Oct, Gross hematuria R31.0 ; Urinary tract infection without hematuria, site unspecified N39.0 and Weakness R53.1 [facility] [id number] [place] [address] 29084- 4790 Oct, [facility] [id number] [place] [address] 68850- 8450 Oct, [facility] [id number] [place] [address] 71649- 5112 Oct, Medicare welcome exam Z00.00 [facility] [id number] [place] [address] 57198- 5971 September, Back pain M54.9 and Right anterior knee pain M25.561 [facility] [id number] [place] [address] 25580- 9662 September, [facility] [address], [place] [address] 4968 September, [facility] [id number] [place] [address] 75444- 3004 September, Essential hypertension I10 [facility] [id number] [place] [address] 10889- 2269 September, [facility] [id number] [place] [address] 18468- 9336 September, RLQ abdominal pain R10.31 ; Low back pain M54.5 and Other chronic pain G89.29 [facility] [id number] [place] [address] 60744- 4919 Aug, Medicare welcome exam Z00.00 [facility] [id number] [place] [address] 67041- 9033 Aug, [facility] [id number] [place] [address] 92899- 1379 Aug, Acute pyelonephritis N10 and Medicare welcome exam Z00.00 [facility] [id number] [place] [address] 76975 -3379 Aug, Dysuria R30.0 and Acute pyelonephritis N10 [facility] [address], [place] [address] 5477 Aug, [facility] [id number] [place] [address] 89704- 4294 Aug, [facility] [id number] [place] [address] 49850- 3532 Aug, [facility] [id number] [place] [address] 36185- 7800 Aug, [facility] [address], [place] [address]- 7652 Jul, [facility] [id number] [place] [address] 50357- 8084 Jul, Renal calculus, right N20.0 and Medicare welcome exam Z00.00 [facility] [id number] [place] [address] 29221 -5286 Jul, Dysuria R30.0 and Renal calculus, right N20.0 [facility] [id number] [place] [address] 26568- 8461 Jul, Medicare welcome exam Z00.00 [facility] [id number] [place] [address] 08359- 6749 Jun, Gastroesophageal reflux disease without esophagitis K21.9 and Generalized abdominal pain R10.84 [facility] [id number] [place] [address] 30975- 2558 Jun, Medicare welcome exam Z00.00 [facility] [id number] [place] [address] 62391- 1923 Jun, [facility] [id number] [place] [address] 12582- 0231 Jun, Medicare welcome exam Z00.00 and Encounter for screening mammogram for malignant neoplasm of breast Z12.31 [facility] [id number] [place] [address] 90082- 2511 Jun, Chronic pain G89.29 [facility] [id number] [place] [address] 54510- 4581 May, [facility] [id number] [place] [address] 85276- 4873 May, Pelvic pain R10.2 [facility] [id number] [place] [address] 85054- 8842 May, Pelvic pain R10.2 [facility] [id number] [place] [address] 37528 -7390 May, Renal calculus, right N20.0 [facility] [id number] [place] [address] 26579- 1396 May, Hematuria, unspecified type R31.9 and Nephrolithiasis N20.0 [facility] [id number] [place] [address] 41274 -5878 May, Dysuria R30.0 and Nephrolithiasis N20.0 [facility] [id number] [place] [address] 59315- 4948 May, [facility] [id number] [place] [address] 98054 -4585 May, Abdominal pain R10.9 and Kidney stone N20.0 [facility] [id number] [place] [address] 62552- 1983 May, [facility] [id number] [place] [address] 04808- 1963 May, Chronic pain G89.29 and Panic attacks F41.0 [facility] [id number] [place] [address] 20089- 1812 May, Urinary tract infection without hematuria, site unspecified N39.0 [facility] [id number] [place] [address] 48340- 7229 Apr, Right lower quadrant abdominal pain R10.31 and Abnormal serum lipase level R74.8 [facility] [id number] [place] [address] 71227- 4837 Apr, Recurrent urinary tract infection N39.0 [facility] [id number] [place] [address] 65813- 2911 Apr, UTI symptoms R39.9 ; Recurrent urinary tract infection N39.0 and Pelvic pain R10.2 [facility] [id number] [place] [address] 15725- 4352 Apr, Chronic pain G89.29 and Panic attacks F41.0 [facility] [id number] [place] [address] 52369- 0706 Apr, Dysuria R30.0 [facility] [id number] [place] [address] 31761- 8853 Apr, [facility] [id number] [place] [address] 95039- 9553 Apr, Dysuria R30.0 and Urinary tract infection without hematuria , site unspecified N39.0 [facility] [id number] [place] [address] 72723- 0108 Mar, UTI symptoms R39.9 [facility] [id number] [place] [address] 04755- 5085 Mar, [facility] [id number] [place] [address] 91673- 4333 Mar, Panic attacks F41.0 and Chronic pain G89.29 [facility] [address] 94814- 5481 Mar, [facility] [id number] [place] [address] 14208- 3317 Mar, Dysuria R30.0 [facility] [id number] [place] [address] 44657- 1503 Mar, Dysuria R30.0 [facility] [id number] [place] [address] 72765- 4374 Feb, Chronic pain G89.29 ; Shortness of breath R06.02 ; Weight loss R63.4 ; Encounter for immunization Z23 ; Bone pain M89.8X9 ; Right anterior knee pain M25.561 and Cough R05 [facility] [id number] [place] [address] 88970- 5863 Feb, Shortness of breath R06.02 [facility] [id number] [place] [address] 39102- 8296 Feb, [facility] [id number] [place] [address] 24844- 0373 Feb, Panic attacks F41.0 and Chronic pain G89.29 [facility] [address] 76831- 4397 Feb, [facility] [address] 89952- 0364 04 Feb, 2017 Panic attacks F41.0 ; Shortness of breath R06.02 and Encounter for immunization Z23 [facility] [address] 36761- 5992 Jan, [facility] [address] 42256- 3293 15 Jan, 2017 Anxiety F41.9 and Chronic pain G89.29 [facility] [address] 13921- 7572 Dec, Anxiety F41.9 and Chronic pain G89.29 [facility] [address] 11492- 3074 Nov, Chronic pain G89.29 [facility] [address] 52596- 7717 Nov, Anxiety F41.9 [facility] [address] 86440- 4028 Nov, Chronic pain G89.29 ; Essential hypertension I10 and Other emphysema J43.8 [facility] [id number] [place] [address] 92278- 9905 Oct, Anxiety F41.9 [facility] [address] 36991- 1013 Oct, [facility] [address] 43883- 9615 Oct, Chronic pain G89.29 [facility] [address] 58424- 6201 September, Recurrent UTI N39.0 ; Neuropathy G62.9 and Anxiety F41.9 [facility] [id number] [place] [address] 74428- 9012 September, [facility] [id number] [place] [address] 84949- 7961 September, Chronic pain G89.29 [facility] [id number] [place] [address] 68580- 6863 September, [facility] [address] 60886- 4945 Aug, Post-traumatic stress disorder, chronic F43.12 ; Chronic urinary tract infection N39.0 ; Gastroesophageal reflux disease without esophagitis K21.9 ; Chronic pain G89.29 ; Essential hypertension I10 and Tobacco abuse Z72.[address] [facility] [id number] [place] [address] 31868 -7008 Aug, [facility] [address] 89428- 1501 Aug, Chronic pain G89.29 [facility] [address] 60512- 4014 Aug, Insomnia, unspecified type G47.00 [facility] [id number] [place] [address] 65276- 4062 Aug, [facility] [id number] [place] [address] 00706- 3655 Jul, Chronic pain G89.29 [facility] [id number] [place] [address] 58756- 2669 Jul, [facility] [address] 46301- 4272 Jul, [facility] [id number] [place] [address] 49859- 9676 Jul, [facility] [address] 04245- 6818 15 Jul, 2016 Recurrent UTI (urinary tract infection) N39.0 [facility] [id number] [place] [address] 92948- 4621 14 Jul, 2016 [facility] [id number] [place] [address] 78280- 2844 27 Jun, 2016 Chronic pain G89.29 [facility] [id number] [place] [address] 44834- 7307 17 Jun, 2016 [facility] [id number] [place] [address] 74052- 4526 Jun, [facility] [id number] [place] [address] 38379- 7735 May, Chronic pain G89.29 [facility] [id number] [place] [address] 29982- 4897 May, Weight loss R63.4 and Shortness of breath R06.02 [facility] [id number] [place] [address] 16837- 4824 May, Chronic pain G89.29 ; Weight loss R63.4 and Tobacco abuse Z72.0 [facility] [address] [place] [address] 11009- 7693 May, [facility] [id number] [place] [address] 88031- 7159 May, Hypoxia R09.02 [facility] [id number] [place] [address] 55668- 1683 May, [facility] [id number] [place] [address] 53352- 4007 May, Pulmonary emphysema, unspecified emphysema type J43.9 [facility] [id number] [place] [address] 79224 -4072 May, [facility] [id number] [place] [address] 11345- 2575 May, [facility] [id number] [place] [address] 26671- 9597 May, [facility] [address] 79808- 5416 May, Chronic pain G89.29 ; Encounter for immunization Z23 ; Right anterior knee pain M25.561 and Cough R05 [facility] [address] 37773- 1643 Apr, Chronic pain G89.29 [facility] [id number] [place] [address] 38354- 0042 Apr, [facility] [address] 43910- 3839 Apr, Generalized anxiety disorder F41.1 and Depression, unspecified depression type F32.9 [facility] [address] 94539- 7591 Apr, Chronic pain G89.29 ; Hypokalemia E87.6 and Insomnia, unspecified type G47.00 [facility] [id number] [place] [address] 92568- 4196 Apr, [facility] [id number] [place] [address] 03514- 5625 Apr, Chronic pain G89.29 [facility] [id number] [place] [address] 45434- 3029 Apr, [facility] [id number] [place] [address] 93833- 6488 Mar, [facility] [id number] [place] [address] 02163- 3019 Mar, Insomnia, unspecified type G47.00 [facility] [id number] [place] [address] 88750- 2890 Mar, Chronic pain G89.29 [facility] [id number] [place] [address] 67935- 6066 Mar, [facility] [address], [place] [address]- 8945 Feb, [facility] [address], [place] [address]- 3878 Feb, [facility] [id number] [place] [address] 40329- 5584 Feb, [facility] [id number] [place] [address] 89513- 4247 Feb, [facility] [id number] [place] [address] 16365- 8040 Feb, [facility] [id number] [place] [address] 44490- 4495 29 Jan, 2016 [facility] [id number] [place] [address] 83887- 8893 26 Jan, 2015 [facility] [address], [place] [address]- 3725 20 Jan, 2015 [facility] [id number] [place] [address] 04023- 6588 13 Jan, 2015 [facility] [address], [place] [address]- 1587 12 Jan, 2016 [facility] [id number] [place] [address] 39978- 4736 07 Jan, 2015 Chronic pain G89.29 [facility] [address], [place] [address]- 6007 Jan, 2015 Chronic pain G89.29 and Fibromyalgia M79.7 [facility] [address], [place] [address]- 9951 Dec, Depression, unspecified depression type F32.9 and Generalized anxiety disorder 300.02 [facility] [address] [address]- 9150 Dec, Dysthymia F34.1 ; Insomnia, unspecified type G47.00 and Chronic pain G89.29 [facility] [address] [facility] [id number] [place] [address] 61054- 5053 Dec, Chronic pain G89.29 [facility] [id number] [place] [address] 83887 2546 Dec, Insomnia, unspecified type G47.00 [facility] [address] [facility] [id number] [place] [address] 79560 254 Dec, Fibromyalgia M79.7 and Chronic pain G89.29 [facility] [id number] [place] [address] 41250- 7486 Dec, [facility] [id number] [place] [address] 24249 2546 Dec, [facility] [id number] [place] [address] 83924- 7710 Dec, [facility] [id number] [place] [address] 59507 2546 Dec, [facility] [id number] [place] [address] 75630- 5428 Dec, Chronic pain G89.29 [facility] [id number] [place] [address] 66544 2545 Dec, [facility] [id number] [place] [address] 79546 2547 Dec, [facility] [id number] [place] [address] 37613 2546 Dec, [facility] [id number] [place] [address] 95558 2549 Dec, Chronic pain G89.29 and Dysthymia F34.1 [facility] [id number] [place] [address] 99636 2545 Nov, [facility] [id number] [place] [address] 08790- 7864 Nov, Hypokalemia E87.6 and Chronic pain G89.29 [facility] [address] 60782- 8313 Nov, Back pain M54.9 and Pain in right knee M25.561 [facility] [address] 93314- 7070 Nov, [facility] [address] 57399- 9157 Nov, Chronic pain G89.29 [facility] [address] 97812- 8147 Nov, Chronic pain G89.29 ; Weight loss R63.4 ; Bone pain M89.8X9 and Insomnia, unspecified type G47.00 [facility] [address] 78983- 2180 Nov, Chronic pain G89.29 [facility] [address] 49798- 4147 Nov, Chronic pain G89.29 [facility] [address] 44853- 9738 30 Oct, 2015 Chronic pain G89.29 [facility] [id number] [place] [address] 49291- 8324 Oct, UTI symptoms R39.9 [facility] [id number] [place] [address] 91290- 6540 27 Oct, 2015 Chronic pain G89.29 [facility] [address] 52311- 3255 20 Oct, 2015 Chronic pain G89.29 [facility] [id number] [place] [address] 67522- 9123 13 Oct, 2015 Chronic pain G89.29 [facility] [address] [address]- [address]237 Oct, Right upper quadrant abdominal pain R10.11 [facility] [id number] [address] Oct, Chronic pain G89.29 [facility] [id number] [address] Oct, [facility] [id number] [place] [address] 42070- 7195 September, Chronic pain G89.29 [facility] [id number] [place] [address] 18685- 2788 September, Dysuria R30.0 and Urinary tract infection without hematuria , site unspecified N39.0 [facility] [id number] [place] [address] 42655- 0900 September, [facility] [address] [place] [id number] [place] [address] 74612- 2365 September, Dysuria R30.0 [facility] [id number] [place] [address] 36211- 8248 September, Chronic pain G89.29 [facility] [id number] [place] [address] 97425- 1393 September, Chronic pain G89.29 and Essential hypertension I10 [facility] [id number] [address] September, [facility] [id number] [place] [address] 54909- 1202 September, [facility] [id number] [place] [address] 66081- 0559 September, [facility] [id number] [place] [address] 83691- 1170 Aug, UTI symptoms R39.9 [facility] [id number], [place] [address] Aug, Dysuria R30.0 [facility] [id number] [address] Aug, [facility] [address] [place] [id number] [place] [address] 85734- 8312 Aug, [facility] [address] [place] [id number] [place] [address] 82310- 4286 Aug, [facility] [address] [place] [id number] [place] [address] 73133- 6111 Aug, Chronic pain G89.29 [facility] [address] [place] [id number] [place] [address] 15049- 8463 Aug, Dysthymia F34.1 [facility] [address] [place] [id number] [place] [address] 80542- 7794 Aug, Conjunctivitis, unspecified conjunctivitis type, unspecified laterality H10.9 [facility] [id number] [place] [address] 71600- 6365 Jul, Chronic pain G89.29 ; Back pain M54.9 ; Tobacco abuse Z72.0 and Weight decrease R63.4 [facility] [id number] [place] [address] 20988- 8608 Jul, [facility] [id number] [place] [address] 55662- 4271 Jul, [facility] [id number] [place] [address] 54769- 8422 24 Jul, 2015 Chronic pain G89.29 [facility] [address] [address] 8771 Jul, [facility] [id number] [place] [address] 40451- 0958 Jul, [facility] [id number] [place] [address] 01613- 9056 Jul, [facility] [id number] [place] [address] 01434- 7839 17 Jul, 2015 [facility] [address], [place] [address] 8505 17 Jul, 2015 Chronic pain G89.29 [facility] [address] [address] 6554 16 Jul, 2015 Chronic pain G89.29 [facility] [id number] [place] [address] 76404- 2896 15 Jul, 2015 [facility] [id number] [place] [address] 69231- 2210 Jul, [facility] [id number] [place] [address] 35596- 6889 Jul, [facility] [id number] [place] [address] 29949- 9318 Jul, [facility] [id number] [place] [address] 78845- 2725 Jun, [facility] [id number] [place] [address] 68392- 1040 Jun, Depression, unspecified depression type F32.9 [facility] [id number] [place] [address] 63889- 8109 Jun, Pain in right knee M25.561 [facility] [id number] [place] [address] 08116- 7100 24 Jun, 2015 Chronic pain G89.29 ; Back pain M54.9 ; Bone pain M89.8X9 and Weight loss R63.4 [facility] [id number] [place] [address] 47572- 8577 Jun, [facility] [id number] [place] [address] 73426- 5287 May, [facility] [address], [place] [address]- 6148 May, UTI symptoms R39.9 ; Pain in right knee M25.561 ; Right low back pain, with sciatica presence unspecified M54.5 ; Right foot pain M79.671 ; Hypokalemia E87.6 and Screening, lipid Z13.220 [facility] [id number] [place] [address] 19898- 4590 May, [facility] [id number] [place] [address] 66026- 5717 May, [facility] [id number] [place] [address] 42468- 2724 Mar, [facility] [id number] [place] [address] 92758- 5711 Mar, [facility] [id number] [place] [address] 59184- 2985 Mar, Hypokalemia E87.6 [facility] [address] 65867- 0676 Mar, Pain in right leg M79.604 ; Encounter for immunization Z23 ; Pain in right knee M25.561 and Hypokalemia E87.6 [facility] [id number] [place] [address] 14511- 7976 Jan, [facility] [id number] [place] [address] 74786- 6363 Jan, [facility] [id number] [place] [address] 98434 2549 Jan, Abdominal pain, generalized 789.07 [facility] [id number] [place] [address] 56911 2547 Jan, Abdominal pain, generalized 789.07 [facility] [id number] [place] [address] 84317- 1329 Dec, [facility] [id number] [place] [address] 97404- 4719 Dec, [facility] [address], [place] [address]- 3596 Dec, [facility] [id number] [place] [address] 05785- 1446 Nov, Hallux valgus 735.0 and Hammertoe 735.4 [facility] [address] [address]- 6086 Nov, [facility] [id number] [place] [address] 41236- 3820 Nov, Hallux valgus 735.0 and Hammer toe 735.4 [facility] [id number] [place] [address] 75572- 7396 Oct, [facility] [id number] [place] [address] 97122- 5566 Oct, [facility] [id number] [place] [address] 99233- 0542 Oct, Pre-op evaluation V72.84 [facility] [address], [place] [address]- 8552 Oct, [facility] [id number] [place] [address] 72736- 1068 Oct, [facility] [address], [place] [address]- 2814 September, [facility] [address], [place] [address] 2546 September, [facility] [id number] [address]- 7179 September, Hallux valgus (acquired) 735.0 and Other hammer toe ( acquired) 735.4 [facility] [address], [place] [address]- 2546 Aug, [facility] [id number] [place] [address] 44771- 7748 Aug, [facility] [place] [facility] [address] [id number] [place] [address]- 0691 Jul, [facility] [place] [facility] [address] [id number] [place] [address]- 4626 Jul, [facility] [place] [facility] [address] [id number] [place] [address]- 7757 Jul, [facility] [place] [facility] [address] [id number] [place] [address]- 2047 Jul, [facility] [place] [facility] [address] [id number] [place] [address]- 8735 Jul, [facility] [place] [facility] [address] [id number] [place] [address]- 2313 Jul, [facility] [place] [facility] [address] [facility] [id number] [place] [address]- 0321 Jul, [facility] [place] [facility] [address] [id number] [place] [address]- 1949 Jul, [facility] [place] [facility] [address] [id number] [place] [address]- 0913 Jun, [facility] [place] [facility] [address] [facility] [id number] [place] [address]- 2352 Jun, [facility] [place] [facility] [address] [id number] [place] [address]- 8974 Jun, 2014 [facility] [place] [facility] [address] [id number] [place] [address]- 4231 Jun, [facility] [place] [facility] [address] [id number] [place] [address]- 4438 Jun, [facility] [place] [facility] [address] [id number] [place] [address]- 2872 Jun, [facility] [place] [facility] [address] [facility] [id number] [place] [address]- 7824 Jun, [facility] [place] [facility] [address] [id number] [place] [address]- 8173 Jun, [facility] [address] [id number] [place] [address]- 2148 Jun, [facility] [place] [facility] [address] [id number] [place] [address]- 1816 Jun, [facility] [place] [facility] [address] [id number] [place] [address]- 3367 May, [facility] [place] [facility] [address] [id number] [place] [address]- 3403 May, [facility] [place] [facility] [address] [id number] [place] [address]- 4822 May, [facility] [place] [facility] [address] [id number] [place] [address]- 4546 May, [facility] [place] [facility] [address] [id number] [place] [address]- 2619 May, [facility] [address] [id number] [place] [address]- 0659 May, [facility] [place] [facility] [address] [id number] [place] [address]- 3394 May, [facility] [place] [facility] [address] [id number] [place] [address]- 2663 May, [facility] [place] [facility] [address] [id number] [place] [address]- 5400 May, [facility] [place] [facility] [address] [id number] [place] [address]- 6519 May, [facility] [place] [facility] [address] [id number] [place] [address]- 1065 May, [facility] [place] [facility] [address] [id number] [place] [address]- 2966 May, [facility] [place] [facility] [address] [id number] [place] [address]- 8408 May, [facility] [place] [facility] [address] [id number] [place] [address]- 3603 May, [facility] [place] [facility] [address] [id number] [place] [address]- 0667 May, [facility] [place] [facility] [address] [id number] [place] [address]- 6375 May, [facility] [place] [facility] [address] [id number] [place] [address]- 3857 May, [facility] [place] [facility] [address] [id number] [place] [address]- 4955 May, [facility] [place] [facility] [address] [id number] [place] [address]- 3610 Apr, [facility] [place] [facility] [address] [id number] [place] [address]- 9971 Apr, [facility] [place] [facility] [address] [id number] [place] [address]- 0008 Apr, [facility] [place] [facility] [address] [id number] [place] [address]- 5222 Apr, [facility] [place] [facility] [address] [id number] [place] [address]- 7586 Apr, [facility] [place] [facility] [address] [id number] [place] [address]- 7210 Apr, [facility] [place] [facility] [address] [id number] [place] [address]- 2921 Apr, [facility] [place] [facility] [address] [id number] [place] [address]- 7323 Apr, [facility] [place] [facility] [address] [id number] [place] [address]- 8654 Apr, [facility] [place] [facility] [address] [id number] [place] [address]- 8780 Mar, [facility] [place] [facility] [address] [id number] [place] [address]- 3665 Mar, [facility] [place] [facility] [address] [id number] [place] [address]- 7741 Mar, [facility] [place] [facility] [address] [id number] [place] [address]- 6461 Mar, [facility] [place] [facility] [address] [id number] [place] [address]- 0371 Mar, [facility] [place] [facility] [address] [id number] [place] [address]- 8556 Feb, [facility] [place] [facility] [address] [id number] [place] [address]- 7434 Feb, [facility] [place] [facility] [address] [id number] [place] [address]- 5613 Feb, [facility] [place] [facility] [address] [id number] [place] [address]- 6297 Feb, [facility] [place] [facility] [address] [id number] [place] [address]- 7205 Feb, [facility] [place] [facility] [address] [id number] [place] [address]- 3786 Feb, [facility] [place] [facility] [address] [id number] [place] [address]- 4298 Feb, [facility] [place] [facility] [address] [id number] [place] [address]- 5224 Feb, [facility] [place] [facility] [address] [id number] [address]- 9131 Feb, [facility] [place] [facility] [address] [id number] 2058 Feb, [facility] [place] [facility] [address] [id number], [place] [address]- 3471 Feb, [facility] [place] [facility] [address] [id number] 2485 Feb, [facility] [place] [facility] [address] [id number] [place] [address]- 1845 07 Feb, 2013 [facility] [place] [facility] [address] [id number] [place] [address]- 5536 Feb, [facility] [place] [facility] [address] [id number] [place] [address]- 0875 Feb, 2013 [facility] [place] [facility] [address] [id number] [place] [address]- 7249 Feb, [facility] [place] [facility] [address] [id number] [place] [address]- 5795 Jan, 2013 [facility] [place] [facility] [address] [id number] [place] [address]- 5609 23 Jan, 2013 [facility] [place] [facility] [address] [id number] [place] [address]- 0410 20 Jan, 2014 [facility] [place] [facility] [address] [id number] [place] [address]- 3702 19 Jan, 2013 [facility] [place] [facility] [address] [id number] [place] [address]- 0184 11 Jan, 2014 [facility] [place] [facility] [address] [id number] [place] [address]- 5386 Jan, [facility] [place] [facility] [address] [id number] [place] [address]- 1612 Jan, [facility] [place] [facility] [address] [id number] [place] [address]- 6205 Jan, 2013 [facility] [place] [facility] [address] [id number] [place] [address]- 2364 Dec, [facility] [place] [facility] [address] [id number] [place] [address]- 0326 Dec, [facility] [place] [facility] [address] [id number] [place] [address]- 2040 Nov, [facility] [place] [facility] [address] [id number] [place] [address]- 1675 Nov, [facility] [place] [facility] [address] [id number] [place] [address]- 4689 Nov, [facility] [place] [facility] [address] [id number] [place] [address]- 5850 Nov, [facility] [place] [facility] [address] [id number] [place] [address]- 4019 Nov, [facility] [place] [facility] [address] [id number] [place] [address]- 3818 Nov, [facility] [place] [facility] [address] [id number] [place] [address]- 7861 Nov, [facility] [place] [facility] [address] [id number] [place] [address]- 7722 Nov, [facility] [place] [facility] [address] [id number] [place] [address]- 1446 Nov, [facility] [place] [facility] [address] [id number] [place] [address]- 6443 Oct, [facility] [place] [facility] [address] [id number] [place] [address]- 6264 Oct, [facility] [place] [facility] [address] [id number] [place] [address]- 8544 Oct, [facility] [place] [facility] [address] [id number] [place] [address]- 8955 Oct, [facility] [place] [facility] [address] [id number] [place] [address]- 3100 Oct, [facility] [place] [facility] [address] [id number] [place] [address]- 0414 Oct, [facility] [place] [facility] [address] [id number] [place] [address]- 9458 September, [facility] [place] [facility] [address] [id number] [place] [address]- 5026 September, [facility] [place] [facility] [address] [id number] [place] [address]- 7967 September, [facility] [address] [id number] [place] 9900 September, [facility] [address] [id number] [place] [address]- 8749 September, [facility] [address] [id number] [place] [address]- 1392 September, [facility] [address] [id number] [place] [address]- 7973 September, [facility] [address] [id number] [place] 5889 September, [facility] [address] [id number] [place] [address]- 6546 September, [facility] [address] [id number] [place] [address]- 4299 September, [facility] [address] [id number] [place] [address]- 1205 September, [facility] [address] [id number] [place] [address]- 4753 September, [facility] [address] [id number] [place] [address]- 9864 September, [facility] [address] [id number] [place] [address]- 5331 September, [facility] [address] [id number] [place] [address]- 0312 September, [facility] [place] [facility] [address] [id number] [place] 3353 September, [facility] [place] [facility] [address] [id number] [place] 2188 September, [facility] [address] [id number] [place] [address]- 4848 September, [facility] [place] [facility] [address] [id number] [place] [address]- 8819 September, [facility] [place] [facility] [address] [id number] [place] [address]- 0996 September, [facility] [place] [facility] [address] [id number] [place] [address]- 6455 Aug, [facility] [place] [facility] [address] [id number] [place] [address]- 6628 Aug, [facility] [place] [facility] [address] [id number] [place] [address]- 8101 Aug, [facility] [place] [facility] [address] [id number] [place] [address]- 3100 Aug, [facility] [place] [facility] [address] [id number] [place] [address]- 0531 Aug, [facility] [place] [facility] [address] [id number] [place] [address]- 2742 Aug, [facility] [place] [facility] [address] [id number] [place] [address]- 7660 Aug, [facility] [place] [facility] [address] [id number] [place] [address]- 0116 Aug, [facility] [place] [facility] [address] [id number] [place] [address]- 1928 Aug, [facility] [place] [facility] [address] [id number] [place] [address]- 8990 Aug, [facility] [place] [facility] [address] [id number] [place] [address]- 5417 Aug, [facility] [place] [facility] [address] [id number] [place] [address]- 6795 Aug, [facility] [place] [facility] [address] [id number] [place] [address]- 0531 Aug, [facility] [place] [facility] [address] [id number] [place] [address]- 7989 Aug, [facility] [place] [facility] [address] [id number] [place] [address]- 4558 Aug, [facility] [place] [facility] [address] [id number] [place] [address]- 1806 Jul, [facility] [place] [facility] [address] [id number] [place] [address]- 2835 Jul, [facility] [place] [facility] [address] [id number] [place] [address]- 3294 Jul, [facility] [place] [facility] [address] [id number] [place] [address]- 4373 Jul, [facility] [place] [facility] [address] [id number] [place] [address]- 7906 Jul, [facility] [place] [facility] [address] [id number] [place] [address]- 8679 Jul, [facility] [place] [facility] [address] [id number] [place] [address]- 9459 Jul, [facility] [place] [facility] [address] [id number] [place] [address]- 9251 Jul, [facility] [place] [facility] [address] [id number] [place] [address] Jul, [facility] [place] [facility] [address] [id number] [place] [address] Jul, [facility] [place] [facility] [address] [id number] [place] [address] Jul, [facility] [place] [facility] [address] [id number] [place] [address] Jul, [facility] [place] [facility] [address] [id number] [place] [address] Jul, [facility] [place] [facility] [address] [id number] [place] [address] Jul, [facility] [place] [facility] [address] [id number] [place] [address] Jul, [facility] [place] [facility] [address] [id number] [place] [address] Jun, [facility] [place] [facility] [address] [id number] [place] [address] Jun, [facility] [place] [facility] [address] [id number] [place] [address] Jun, [facility] [place] [facility] [address] [id number] [place] [address] Jun, [facility] [place] [facility] [address] [id number] [place] [address] Jun, [facility] [place] [facility] [address] [id number] [place] [address] Jun, [facility] [place] [facility] [address] [id number] [place] [address] May, [facility] [place] [facility] [address] [id number] [place] [address]269 May, [facility] [place] [facility] [address] [id number] [place] [address] May, [facility] [place] [facility] [address] [id number] [place] [address] May, [facility] [place] [facility] [address] [id number] [place] [address] May, [facility] [place] [facility] [address] [id number] [place] [address] May, [facility] [place] [facility] [address] [id number] [place] [address]- [address] May, [facility] [place] [facility] [address] [id number] [place] [address] May, [facility] [place] [facility] [address] [id number] [place] [address] May, [facility] [address] [id number] [place] [address] May, [facility] [place] [facility] [address] [id number] [place] [address] May, [facility] [place] [facility] [address] [id number] [place] [address]267 May, [facility] [place] [facility] [address] [id number] [place] [address]- [address] May, [facility] [place] [facility] [address] [id number] [place] [address] May, [facility] [place] [facility] [address] [id number] [place] [address] May, [facility] [place] [facility] [address] [id number] [place] [address]199 Apr, [facility] [place] [facility] [address] [id number] [place] [address] Apr, [facility] [place] [facility] [address] [id number] [place] [address] Apr, [facility] [place] [facility] [address] [id number] [place] [address] Apr, [facility] [place] [facility] [address] [id number] [place] [address] Apr, [facility] [place] [facility] [address] [id number] [place] [address]85 Apr, [facility] [place] [facility] [address] [id number] [place] [address] Apr, [facility] [place] [facility] [address] [id number] [place] [address] 3300 Apr, [facility] [place] [facility] [address] [id number] [place] [address] Apr, [facility] [place] [facility] [address] [id number] [place] [address] Apr, [facility] [address] [id number] [place] [address] Mar, [facility] [address] [id number] [place] [address] Mar, [facility] [address] [id number] [place] [address]- [address]32 Mar, [facility] [address] [id number] [place] [address] Mar, [facility] [address] [id number] [place] [address]- [address] Mar, [facility] [address] [id number] [place] [address] 2068 Mar, [facility] [address] [id number] [place] [address] Mar, [facility] [address] [id number] [place] [address]- [address]258 Mar, [facility] [address] [id number] [place] [address]471 Mar, [facility] [address] [id number] [place] [address]- [address] Mar, [facility] [address] [id number] [place] [address]- 6263 Mar, [facility] [address] [id number] [place] [address]- [address]654 Mar, [facility] [place] [facility] [address] [id number] [place] [address]- 7939 Mar, [facility] [place] [facility] [address] [id number] [place] [address]- 9764 Mar, [facility] [address] [id number] [place] [address]- [address]10 Mar, [facility] [place] [facility] [address] [id number] [place] [address] 18 Mar, 2013 [facility] [place] [facility] [address] [id number] [place] [address]- [address]298 Mar, [facility] [place] [facility] [address] [id number] [place] [address]- [address] Mar, [facility] [place] [facility] [address] [id number] [place] [address]- 4681 Mar, [facility] [place] [facility] [address] [id number] [place] [address]- 0865 Mar, [facility] [place] [facility] [address] [id number] [place] [address]- 5614 Mar, [facility] [place] [facility] [address] [id number] [place] [address]- 8003 Mar, [facility] [place] [facility] [address] [id number], [place] [address] Mar, [facility] [place] [facility] [address] [id number], [place] [address] Feb, [facility] [place] [facility] [address] [id number], [place] [address]- [address] Feb, [facility] [place] [facility] [address] [id number], [place] [address] Feb, [facility] [facility] [address] [id number], [place] [address] 16 Feb, 2013 [facility] [address] [id number], [place] [address] 15 Feb, 2013 [facility] [address] [id number], [place] [address] Feb, [facility] [address] [facility] [id number], [place] [address] Feb, [facility] [address] [id number], [place] [address] Feb, [facility] [address] [id number] [place] [address] Feb, [facility] [place] [facility] [address] [id number] [place] [address]- 1084 Feb, [facility] [place] [address] [id number] [place] [address]- 8473 30 Jan, 2013 [facility] [place] [facility] [address] [id number] [place] [address]- 5570 26 Jan, 2013 [facility] [address] [id number] [place] [address]- 4683 24 Jan, 2013 [facility] [place] [facility] [address] [id number] [place] [address]- 3025 23 Jan, 2013 [facility] [facility] [address] [id number] [place] [address]- 3061 17 Jan, 2013 [facility] [place] [facility] [address] [id number] [place] [address]- 1087 Dec, [facility] [address] [id number] [place] [address]- 8340 Dec, [facility] [facility] [address] [id number] [place] [address]- 9596 Dec, [facility] [address] [id number] [place] [address]- 6956 15 Dec, 2012 [facility] [address] [id number] [place] [address]- 9071 14 Dec, 2012 [facility] [address] [id number] [place] [address]- 5017 Dec, [facility] [place] [facility] [address] [id number] [place] [address]- 4867 Dec, [facility] [address] [id number] [place] [address]- 3718 Nov, [facility] [address] [id number] [place] [address]- 2546 16 Nov, 2012 [facility] [address] [id number] [place] [address]- 8476 15 Nov, 2012 [facility] [address] [id number] [place] [address]- 2546 05 Nov, 2012 [facility] [address] [id number] [place] [address]- 2546 Nov, [facility] [address] [id number] [place] [address]- 6816 Oct, [facility] [address] [id number] [place] [address]- 7546 Oct, [facility] [address] [id number] [place] [address]- 2546 Oct, [facility] [address] [id number] [place] [address]- 8086 September, [facility] [address] [id number] [place] [address]- 2069 September, [facility] [address] [id number] [place] [address]- 7036 September, [facility] [address] [id number] [place] [address]- 6416 September, [facility] [address] [id number] [place] [address]- 3946 September, [facility] [address] [id number] [place] [address]- 2546 September, [facility] [address] [id number] [place] [address]- 2546 September, [facility] [address] [id number] [place] [address]- 2546 Aug, [facility] [address] [id number] [place] [address]- 5496 23 Aug, 2012 [facility] [address] [id number] [place] [address]- 7737 11 Aug, 2012 [facility] [address] [id number] [place] [address]- 0168 29 Jul, 2012 [facility] [address] [id number] [place] [address]- 6727 27 Jul, 2012 [facility] [address] [id number] [place] [address]- 3546 26 Jul, 2012 [facility] [address] [id number] [place] [address]- 1764 20 Jul, 2012 [facility] [address] [id number] [place] [address]- 6213 18 Jul, 2012 [facility] [address] [facility] [id number] [place] [address]- 7678 18 Jul, 2012 [facility] [address] [id number] [place] [address]- 9994 13 Jul, 2012 [facility] [address] [id number] [place] [address]- 5986 28 Jun, 2012 [facility] [address] [facility] [id number] [place] [address]- 9801 27 Jun, 2012 [facility] [address] [facility] [id number] [place] [address]- 8111 22 Jun, 2012 [facility] [address] [id number] [place] [address]- 9731 20 Jun, 2012 [facility] [address] [id number] [place] [address]- 7182 15 Jun, 2012 [facility] [address] [id number] [place] [address]- 0946 15 Jun, 2012 [facility] [address] [facility] [id number] [place] [address]- 7908 13 Jun, 2012 [facility] [address] [id number] [place] [address]- 3436 Jun, [facility] [address] [id number] [place] [address]- 8656 Jun, [facility] [address] [id number] [place] [address]- 2546 Jun, [facility] [address] [id number] [place] [address]- 6806 May, [facility] [address] [id number] [place] [address] 2547 May, [facility] [address] [id number] [place] [address]- 8096 May, [facility] [address] [id number] [place] [address]- 6478 May, [facility] [address] [id number] [place] [address]- 4429 May, [facility] [address] [id number] [place] [address]- 1171 May, [facility] [address] [id number] [place] [address]- 5567 31 Apr, 2012 [facility] [address] [id number] [place] [address] 2546 31 Apr, 2012 [facility] [address] [id number] [place] [address] 2546 Apr, [facility] [address] [id number] [place] [address] 2542 28 Apr, 2012 [facility] [address] [id number] [place] [address] 2546 26 Apr, 2012 [facility] [address] [id number] [place] [address]- 2546 20 Apr, 2012 [facility] [place] [facility] [address] [id number] [place] [address]- 7084 Apr, [facility] [address] [id number] [place] [address]- 0005 Mar, [facility] [address] [id number] [place] [address]- 8612 Mar, [facility] [address] [facility] [id number] [place] [address]- 5487 Mar, [facility] [address] [id number] [place] [address]- 3103 Mar, [facility] [address] [id number] [place] [address]- 3101 Mar, [facility] [address] [id number], [place] [address]- 7597 Mar, [facility] [address] [id number] [place] [address]- 4545 Mar, [facility] [address] [id number], [place] [address]- 9667 Mar, [facility] [address] [id number], [place] [address]- 2326 Mar, [facility] [address] [id number], [place] [address]- 3621 Mar, [facility] [address] [id number], [place] [address]- 6533 Mar, [facility] [address] [id number], [place] [address]- 2265 Mar, [facility] [address] [id number], [place] [address]- 6759 Mar, [facility] [address] [facility] [id number], [place] [address]- 4609 Mar, [facility] [address] [facility] [id number], [place] [address]- 3915 Mar, [facility] [address] [id number] [place] [address]- 0460 Mar, [facility] [address] [id number] [place] [address]- 3578 Mar, [facility] [address] [id number] [place] [address]- 6195 Feb, [facility] [address] [id number] [place] [address]- 9586 Feb, 2011 [facility] [address] [id number] [place] [address]- 2255 Feb, [facility] [address] [id number] [place] [address]- 9494 Feb, [facility] [address] [id number] [place] [address]- 2190 Feb, [facility] [address] [id number] [place] [address]- 8623 Feb, [facility] [address] [id number] [place] [address]- 9549 Feb, [facility] [address] [id number] [place] [address]- 1076 Feb, [facility] [address] [facility] [id number] [place] [address]- 6499 Feb, [facility] [address] [id number] [place] [address]- 7727 Feb, [facility] [address] [id number] [place] [address]- 4545 Feb, [facility] [address] [id number] [place] [address]- 7450 27 Jan, 2011 [facility] [address] [id number] [place] [address]- 9038 25 Jan, 2012 [facility] [address] [id number] [place] [address]- 0232 13 Jan, 2012 [facility] [address] [id number] [place] [address]- 7089 12 Jan, 2012 [facility] [address] [id number] [place] [address]- 5299 Jan, [facility] [address] [id number] [place] [address]- 4983 Dec, [facility] [address] [id number] [place] [address]- 1807 Dec, [facility] [address] [id number] [place] [address]- 0860 Dec, [facility] [address] [id number] [place] [address]- 6504 Dec, [facility] [address] [id number] [place] [address]- 4732 Dec, [facility] [address] [id number] [place] [address]- 5958 Dec, [facility] [address] [id number] [place] [address]- 4517 Dec, [facility] [place] [facility] [address] [id number] [place] [address]- 9884 Dec, [facility] [address] [id number] [place] [address]- 3078 Nov, [facility] [place] [facility] [address] [id number] [place] [address]- 2442 Nov, [facility] [place] [facility] [address] [id number] [place] [address]- 3588 Nov, [facility] [place] [facility] [address] [id number] [place] [address]- 9115 Nov, [facility] [place] [address] [id number] [place] [address]- 9474 Nov, [facility] [place] [facility] [address] [id number] [place] [address]- 3139 Oct, [facility] [address] [id number] [place]091 Oct, [facility] [place] [facility] [address] [id number] [place] [address]- 3127 September, [facility] [address] [id number] [place] [address]- 7526 September, [facility] [place] [facility] [address] [id number] [place] [address]- 0425 September, [facility] [address] [id number] [place] [address]- 3822 September, [facility] [address] [id number] [place] [address]- 9611 September, [facility] [address] [id number] [place] [address]- 0027 September, [facility] [address] [id number] [place] [address]- 9439 September, [facility] [place] [facility] [address] [id number] [place] [address]- 2551 September, [facility] [address] [id number] [place] [address]- 0212 September, [facility] [address] [id number] [place] [address]- 2425 September, [facility] [address] [id number] [place] [address]- 6503 September, [facility] [place] [facility] [address] [id number] [place] [address]- 6511 September, [facility] [address] [id number] [place] [address]- 6292 September, [facility] [address] [id number] [place] [address]- 4131 September, [facility] [address] [id number] [place] [address]- 8005 24 Aug, 2011 [facility] [address] [id number] [place] [address]- 7531 20 Aug, 2011 [facility] [address] [id number] [place] [address]- 4656 13 Aug, 2011 [facility] [address] [id number] [place] [address]- 4603 11 Aug, 2011 [facility] [address] [id number] [place] [address]- 2271 23 Jul, 2011 [facility] [address] [id number] [place] [address]- 4536 13 Jul, 2011 [facility] [address] [id number] [place] [address]- 1484 13 Jul, 2011 [facility] [address] [id number] [place] [address]- 5939 28 Jun, [address] [facility] [address] [id number] [id number] 26 Jun, 2011 [facility] [address] [id number] [place] [address]- 8460 13 Jun, 2011 [facility] [address] [id number] [place] [address]- 3914 10 Jun, 2011 [facility] [address] [id number] [place] [address]- 9166 07 Jun, 2011 [facility] [address] [id number] [place] [address]- 2136 07 Jun, 2011 [facility] [place] [facility] [address] [id number] [place] [address]- 0536 03 Jun, 2011 [facility] [place] [facility] [address] [id number] [place] [address]- 3756 02 Jun, 2011 [facility] [place] [facility] [address] [id number] [place] [address]- 5065 31 May, 2011 [facility] [address] [id number] [place] [address]- 5035 30 May, 2011 [facility] [address] [id number] [place] [address]- 9885 May, [facility] [address] [id number] [place] [address]- 0302 May, [facility] [address] [id number] [place] [address]- 5733 May, [facility] [address] [id number] [place] [address]- 8668 May, [facility] [address] [id number] [place] [address]- 4990 May, [facility] [address] [id number] [place] [address]- 4023 May, [facility] [place] [facility] [address] [id number] [place] [address]- 8063 May, [facility] [address] [id number] [place] [address]- 6631 May, [facility] [place] [facility] [address] [id number] [place] [address]- 8658 May, [facility] [address] [id number], [place] [address]- 7931 May, [facility] [place] [facility] [address] [id number], [place] [address]- 4778 May, [facility] [place] [facility] [address] [id number] [place] [address]- 3587 May, [facility] [place] [facility] [address] [id number] [place] [address]- 9650 30 Apr, 2011 [facility] [place] [facility] [address] [id number] [place] [address]- 7106 16 Apr, 2011 [facility] [place] [facility] [address] [id number] [place] [address]- 2123 05 Apr, 2011 [facility] [place] [facility] [address] [id number] [place] [address]- 7896 17 Mar, 2011 [facility] [place] [facility] [address] [id number] [place] [address] 2546 Mar, [facility] [place] [facility] [address] [id number] [place] [address]- 7616 31 Feb, 2011 [facility] [place] [facility] [address] [id number] [place] [address] 2546 26 Feb, 2011 [facility] [place] [facility] [address] [id number] [place] [address]- 3097 Feb, [facility] [place] [facility] [address] [id number] [place] [address]- 9769 20 Feb, 2011 [facility] [place] [facility] [address] [id number] [place] [address]- 7686 13 Feb, 2011 [facility] [place] [facility] [address] [id number] [place] [address]- 8353 28 Apr, 2010 [facility] [place] [facility] [address] [id number] [place] [address] 2546 22 Apr, 2010 [facility] [place] [facility] [address] [facility] [id number] [place] [address] 2547 16 Apr, 2010 [facility] [place] [facility] [address] [id number] [place] [address] 2546 15 Apr, 2010 [facility] [place] [facility] [address] [id number] [place] [address] 2546 15 Apr, 2010 [facility] [place] [facility] [address] [id number] [place] [address] 2546 Apr, [facility] [place] [facility] [address] [id number] [place] [address] 2546 24 Mar, 2010 [facility] [place] [facility] [address] [id number] [place] [address] 2540 17 Mar, 2010 [facility] [id number], [place] [address]- 6814 17 Mar, 2010 [facility] [address]00565[place], [place] [address]- 8370 28 Feb, 2010 [facility] [id number], [place] [address]- 3533 Feb, [facility] [id number] [place] [address]- 7242 Feb, [facility] [id number], [place] [address]- 7592 Feb, [facility] [id number] [place] [address]- 7718 Dec, [facility] [id number], [place] [address]- 0149 Dec, [facility] [id number] [place] [address]96- 3101 Oct, [facility] [id number], [place] [address]- 2384 Mar, [facility] [id number], [place] [address]- 1890 Mar, [facility] [id number], [place] [address]- 3985 September, IMMUNIZATIONS No Known Immunizations SOCIAL HISTORY Never Assessed REASON FOR VISIT [place] [place] VITAL SIGNS MEDICATIONS Unknown [...]
--- OUTSIDE RECORDS SUMMARY | 2018-09-19 09:05 | XMS REPORT ---
Author Author Migration, Doctor Organization [facility] Address Unknown Phone Unavailable Care Team Providers Care Telehealth Coordinator Name Role Phone Migration, Doctor Unavailable Unavailable PROBLEMS Type Condition ICD9-CM Code [id number] Code Onset Dates Condition Status SNOMED Code Problem Hypokalemia E87.6 Active 666929755 Problem Generalized anxiety disorder F41.1 Active 15726238 Problem Pain in right knee M25.561 Active 22063428 Problem Right low back pain, with sciatica presence unspecified M54.5 Active 564501620 Problem Right foot pain M79.671 Active 19346139 Problem UTI symptoms R39.9 Active 21994573 Problem Essential hypertension I10 Active 15210768 Problem Gastroesophageal reflux disease without esophagitis K21.9 Active 910656514 Problem Weight decrease R63.4 Active 031809204 Problem Depression, unspecified depression type F32.9 Active 84966589 Problem Right upper quadrant abdominal pain R10.11 Active 102014854 Problem Tobacco abuse Z72.0 Active 23498977 Problem Insomnia, unspecified type G47.00 Active 220744137 Problem Weight loss R63.4 Active 214650660 Problem Post-traumatic stress disorder, chronic F43.12 Active 23177697 Problem Pulmonary emphysema, unspecified emphysema type J43.9 Active 49340395 Problem Neuropathy G62.9 Active 703849922 Problem Anxiety F41.9 Active 84047873 Problem Other emphysema J43.8 Active 38591223 Problem Other chronic pain G89.29 Active 30319072 Problem Chronic pain G89.29 Active 45189780 Problem Opioid use disorder, moderate, dependence F11.20 Active 61341445 Problem Back pain M54.9 Active 683950042 Problem Bone pain M89.8X9 Active 36556468 Problem Panic attacks F41.0 Active 834710985 Problem Kidney stones N20.0 Active 64167945 Problem Renal calculus, right N20.0 Active 56005145 Problem Generalized abdominal pain R10.84 Active 048022731 ALLERGIES No Information ENCOUNTERS Encounter Location Date Diagnosis [facility] [address] [address] Feb, [facility] [id number] [place] [address] 59978- 7075 Dec, [facility] [id number] [place] [address] 58615- 8317 Dec, [facility] [id number] [place] [address] 57733- 6730 Dec, Medicare welcome exam Z00.00 [facility] [id number] [place] [address] 83068- 5790 17 Nov, 2017 Opioid use disorder, moderate, dependence F11.20 [facility] [id number] [place] [address] 77750- 7440 16 Nov, 2017 Pelvic pain R10.2 ; Acute pyelonephritis N10 and Essential hypertension I10 [facility] [id number] [place] [address] 97337- 4725 28 Oct, 2017 Medicare welcome exam Z00.00 [facility] [id number] [place] [address] 74947- 5421 Oct, Gross hematuria R31.0 ; Urinary tract infection without hematuria, site unspecified N39.0 and Weakness R53.1 [facility] [id number] [place] [address] 24017- 0459 Oct, [facility] [id number] [place] [address] 00582- 5057 Oct, [facility] [id number] [place] [address] 36509- 8680 Oct, Medicare welcome exam Z00.00 [facility] [id number] [place] [address] 49161- 8883 September, Back pain M54.9 and Right anterior knee pain M25.561 [facility] [id number] [place] [address] 14287- 0916 September, [facility] [address], [place] [address] 0179 September, [facility] [id number] [place] [address] 41766- 6382 September, Essential hypertension I10 [facility] [id number] [place] [address] 37860- 8786 September, [facility] [id number] [place] [address] 36836- 0852 September, RLQ abdominal pain R10.31 ; Low back pain M54.5 and Other chronic pain G89.29 [facility] [id number] [place] [address] 31411- 4934 Aug, Medicare welcome exam Z00.00 [facility] [id number] [place] [address] 17048- 3099 Aug, [facility] [id number] [place] [address] 07189- 5695 Aug, Acute pyelonephritis N10 and Medicare welcome exam Z00.00 [facility] [id number] [place] [address] 80646 -4144 Aug, Dysuria R30.0 and Acute pyelonephritis N10 [facility] [address], [place] [address] 4609 Aug, [facility] [id number] [place] [address] 74114- 0334 Aug, [facility] [id number] [place] [address] 10470- 8463 Aug, [facility] [id number] [place] [address] 77556- 7879 Aug, [facility] [address], [place] [address]- 3570 Jul, [facility] [id number] [place] [address] 00640- 6755 Jul, Renal calculus, right N20.0 and Medicare welcome exam Z00.00 [facility] [id number] [place] [address] 93520 -2462 Jul, Dysuria R30.0 and Renal calculus, right N20.0 [facility] [id number] [place] [address] 55476- 5314 Jul, Medicare welcome exam Z00.00 [facility] [id number] [place] [address] 35908- 0735 Jun, Gastroesophageal reflux disease without esophagitis K21.9 and Generalized abdominal pain R10.84 [facility] [id number] [place] [address] 84625- 3731 Jun, Medicare welcome exam Z00.00 [facility] [id number] [place] [address] 81952- 3543 Jun, [facility] [id number] [place] [address] 86145- 3394 Jun, Medicare welcome exam Z00.00 and Encounter for screening mammogram for malignant neoplasm of breast Z12.31 [facility] [id number] [place] [address] 04994- 6269 Jun, Chronic pain G89.29 [facility] [id number] [place] [address] 36230- 7185 May, [facility] [id number] [place] [address] 94748- 6499 May, Pelvic pain R10.2 [facility] [id number] [place] [address] 00189- 7273 May, Pelvic pain R10.2 [facility] [id number] [place] [address] 76982 -5097 May, Renal calculus, right N20.0 [facility] [address] [place] [address] 17383- 6215 May, Hematuria, unspecified type R31.9 and Nephrolithiasis N20.0 [facility] [id number] [place] [address] 82423 -6337 May, Dysuria R30.0 and Nephrolithiasis N20.0 [facility] [id number] [place] [address] 61760- 0846 May, [facility] [id number] [place] [address] 75375 -3149 May, Abdominal pain R10.9 and Kidney stone N20.0 [facility] [id number] [place] [address] 36522- 7929 May, [facility] [id number] [place] [address] 26059- 0874 May, Chronic pain G89.29 and Panic attacks F41.0 [facility] [id number] [place] [address] 82145- 8581 May, Urinary tract infection without hematuria, site unspecified N39.0 [facility] [id number] [place] [address] 64743- 7206 Apr, Right lower quadrant abdominal pain R10.31 and Abnormal serum lipase level R74.8 [facility] [id number] [place] [address] 26336- 2527 Apr, Recurrent urinary tract infection N39.0 [facility] [id number] [place] [address] 70569- 6422 Apr, UTI symptoms R39.9 ; Recurrent urinary tract infection N39.0 and Pelvic pain R10.2 [facility] [address] [place] [address] 39266- 3124 Apr, Chronic pain G89.29 and Panic attacks F41.0 [facility] [id number] [place] [address] 35805- 0108 Apr, Dysuria R30.0 [facility] [id number] [place] [address] 22920- 8581 Apr, [facility] [id number] [place] [address] 37085- 1431 Apr, Dysuria R30.0 and Urinary tract infection without hematuria , site unspecified N39.0 [facility] [id number] [place] [address] 50585- 4493 Mar, UTI symptoms R39.9 [facility] [id number] [place] [address] 26413- 2659 Mar, [facility] [address] [place] [address] 37846- 5234 Mar, Panic attacks F41.0 and Chronic pain G89.29 [facility] [address] 26253- 4749 Mar, [facility] [id number] [place] [address] 66584- 6105 Mar, Dysuria R30.0 [facility] [id number] [place] [address] 66208- 1827 Mar, Dysuria R30.0 [facility] [id number] [place] [address] 59115- 3458 Feb, Chronic pain G89.29 ; Shortness of breath R06.02 ; Weight loss R63.4 ; Encounter for immunization Z23 ; Bone pain M89.8X9 ; Right anterior knee pain M25.561 and Cough R05 [facility] [id number] [place] [address] 34923- 4092 Feb, Shortness of breath R06.02 [facility] [id number] [place] [address] 81533- 1359 Feb, [facility] [id number] [place] [address] 84437- 6668 Feb, Panic attacks F41.0 and Chronic pain G89.29 [facility] [address] 57572- 2506 Feb, [facility] [address] 57521- 3065 04 Feb, 2017 Panic attacks F41.0 ; Shortness of breath R06.02 and Encounter for immunization Z23 [facility] [address] 37634- 9660 Jan, [facility] [address] 47304- 2235 15 Jan, 2017 Anxiety F41.9 and Chronic pain G89.29 [facility] [address] 54331- 9562 Dec, Anxiety F41.9 and Chronic pain G89.29 [facility] [address] 88800- 3311 Nov, Chronic pain G89.29 [facility] [address] 66353- 6688 Nov, Anxiety F41.9 [facility] [address] 98074- 7527 Nov, Chronic pain G89.29 ; Essential hypertension I10 and Other emphysema J43.8 [facility] [id number] [place] [address] 33431- 9352 Oct, Anxiety F41.9 [facility] [address] 04640- 4697 Oct, [facility] [address] 24321- 1673 Oct, Chronic pain G89.29 [facility] [address] 31507- 9997 September, Recurrent UTI N39.0 ; Neuropathy G62.9 and Anxiety F41.9 [facility] [id number] [place] [address] 54677- 9322 September, [facility] [id number] [place] [address] 00262- 1951 September, Chronic pain G89.29 [facility] [id number] [place] [address] 57627- 9415 September, [facility] [address] 20392- 6781 Aug, Post-traumatic stress disorder, chronic F43.12 ; Chronic urinary tract infection N39.0 ; Gastroesophageal reflux disease without esophagitis K21.9 ; Chronic pain G89.29 ; Essential hypertension I10 and Tobacco abuse Z72.0 [facility] [id number] [place] [address] 82224 -9350 Aug, [facility] [address] 77168- 7214 Aug, Chronic pain G89.29 [facility] [address] 42679- 6096 Aug, Insomnia, unspecified type G47.00 [facility] [id number] [place] [address] 06844- 1212 Aug, [facility] [id number] [place] [address] 44161- 7842 Jul, Chronic pain G89.29 [facility] [id number] [place] [address] 32407- 1097 Jul, [facility] [address] 71427- 6376 Jul, [facility] [id number] [place] [address] 27011- 8057 Jul, [facility] [address] 94016- 1925 15 Jul, 2016 Recurrent UTI (urinary tract infection) N39.0 [facility] [address] [place] [address] 90442- 7981 14 Jul, 2016 [facility] [id number] [place] [address] 67935- 7560 27 Jun, 2016 Chronic pain G89.29 [facility] [id number] [place] [address] 44060- 3283 17 Jun, 2016 [facility] [id number] [place] [address] 94702- 0811 Jun, [facility] [id number] [place] [address] 41313- 4405 May, Chronic pain G89.29 [facility] [id number] [place] [address] 55541- 5889 May, Weight loss R63.4 and Shortness of breath R06.02 [facility] [id number] [place] [address] 80233- 4686 May, Chronic pain G89.29 ; Weight loss R63.4 and Tobacco abuse Z72.0 [facility] [address] [place] [address] 82160- 3298 May, [facility] [address] [place] [address] 76629- 2451 May, Hypoxia R09.02 [facility] [id number] [place] [address] 56606- 7586 May, [facility] [id number] [place] [address] 65890- 0821 May, Pulmonary emphysema, unspecified emphysema type J43.9 [facility] [id number] [place] [address] 00563 -1885 May, [facility] [id number] [place] [address] 01118- 2822 May, [facility] [id number] [place] [address] 03184- 5418 May, [facility] [address] 84133- 6333 May, Chronic pain G89.29 ; Encounter for immunization Z23 ; Right anterior knee pain M25.561 and Cough R05 [facility] [address] 12228- 6350 Apr, Chronic pain G89.29 [facility] [id number] [place] [address] 54662- 0673 Apr, [facility] [address] 56779- 3210 Apr, Generalized anxiety disorder F41.1 and Depression, unspecified depression type F32.9 [facility] [address] 14620- 1207 Apr, Chronic pain G89.29 ; Hypokalemia E87.6 and Insomnia, unspecified type G47.00 [facility] [id number] [place] [address] 11805- 2782 Apr, [facility] [id number] [place] [address] 37571- 6130 Apr, Chronic pain G89.29 [facility] [id number] [place] [address] 90630- 5469 Apr, [facility] [id number] [place] [address] 18065- 8967 Mar, [facility] [id number] [place] [address] 22420- 6307 Mar, Insomnia, unspecified type G47.00 [facility] [id number] [place] [address] 43143- 3209 Mar, Chronic pain G89.29 [facility] [id number] [place] [address] 30931- 1568 Mar, [facility] [address], [place] [address]- 2829 Feb, [facility] [address], [place] [address]- 4790 Feb, [facility] [id number] [place] [address] 14451- 2232 Feb, [facility] [id number] [place] [address] 00657- 8359 Feb, [facility] [id number] [place] [address] 84532- 9486 Feb, [facility] [id number] [place] [address] 82603- 4237 29 Jan, 2016 [facility] [id number] [place] [address] 10547- 6594 26 Jan, 2015 [facility] [address] [address]- 0658 20 Jan, 2015 [facility] [id number] [place] [address] 11258- 8658 13 Jan, 2015 [facility] [address] [address]- 7593 12 Jan, 2016 [facility] [id number] [place] [address] 46626- 2998 07 Jan, 2015 Chronic pain G89.29 [facility] [address] [address]- 0729 Jan, 2015 Chronic pain G89.29 and Fibromyalgia M79.7 [facility] [address] [address]- 4984 Dec, Depression, unspecified depression type F32.9 and Generalized anxiety disorder 300.02 [facility] [address] [address]- 1267 Dec, Dysthymia F34.1 ; Insomnia, unspecified type G47.00 and Chronic pain G89.29 [facility] [address] [facility] [id number] [place] [address] 89899- 9710 Dec, Chronic pain G89.29 [facility] [id number] [place] [address] 05010 2546 Dec, Insomnia, unspecified type G47.00 [facility] [address] [facility] [id number] [place] [address] 48929 2545 Dec, Fibromyalgia M79.7 and Chronic pain G89.29 [facility] [id number] [place] [address] 36927- 0326 Dec, [facility] [id number] [place] [address] 22965 2546 Dec, [facility] [id number] [place] [address] 90140- 2212 Dec, [facility] [id number] [place] [address] 00561 2546 Dec, [facility] [id number] [place] [address] 10757- 7305 Dec, Chronic pain G89.29 [facility] [id number] [place] [address] 28514 2548 Dec, [facility] [id number] [place] [address] 24760 2545 Dec, [facility] [id number] [place] [address] 32925 2546 Dec, [facility] [id number] [place] [address] 20657 254 Dec, Chronic pain G89.29 and Dysthymia F34.1 [facility] [id number] [place] [address] 52616 2540 Nov, [facility] [id number] [place] [address] 73338- 0317 Nov, Hypokalemia E87.6 and Chronic pain G89.29 [facility] [address] 67539- 2232 Nov, Back pain M54.9 and Pain in right knee M25.561 [place] [address] 00257- 8488 Nov, [facility] [address] 77583- 2856 Nov, Chronic pain G89.29 [facility] [address] 36842- 1341 Nov, Chronic pain G89.29 ; Weight loss R63.4 ; Bone pain M89.8X9 and Insomnia, unspecified type G47.00 [place] [address] 63796- 8167 Nov, Chronic pain G89.29 [facility] [facility] [address] 85426- 4864 Nov, Chronic pain G89.29 [place] [address] 70960- 9415 30 Oct, 2015 Chronic pain G89.29 [facility] [id number] [place] [address] 15570- 4403 Oct, UTI symptoms R39.9 [facility] [id number] [place] [address] 24992- 6331 27 Oct, 2015 Chronic pain G89.29 [place] [facility] [address] 59123- 1856 20 Oct, 2015 Chronic pain G89.29 [facility] [id number] [place] [address] 72424- 6075 13 Oct, 2015 Chronic pain G89.29 [place] [facility] [address] 69780- 0164 Oct, Right upper quadrant abdominal pain R10.11 [facility] [address] [address]- 2847 Oct, Chronic pain G89.29 [facility] [address] [place] [address]- 2178 Oct, [facility] [id number] [place] [address] 78587- 8029 September, Chronic pain G89.29 [facility] [id number] [place] [address] 66097- 9029 September, Dysuria R30.0 and Urinary tract infection without hematuria , site unspecified N39.0 [facility] [id number] [place] [address] 43262- 0776 September, [facility] [id number] [place] [address] 17550- 4194 September, Dysuria R30.0 [facility] [id number] [place] [address]39[address]- 7321 September, Chronic pain G89.29 [facility] [id number] [place] [address] 56[address]- 4648 September, Chronic pain G89.29 and Essential hypertension I10 [facility] [id number] [address] September, [facility] [id number] [place] [address] 456[address]- 8177 September, [facility] [id number] [place] [address] 04286- 5090 September, [facility] [id number] [place] [address] 25701- 4755 Aug, UTI symptoms R39.9 [facility] [id number] [address] Aug, Dysuria R30.0 [facility] [id number] [place] [address] Aug, [facility] [id number] [place] [address] [id number]- 9800 Aug, [facility] [id number] [place] [address] 23371- 9347 Aug, [facility] [id number] [place] [address] 64355- 9489 Aug, Chronic pain G89.29 [facility] [id number] [place] [address] 09419- 5703 Aug, Dysthymia F34.1 [facility] [id number] [place] [address] 48287- 6057 Aug, Conjunctivitis, unspecified conjunctivitis type, unspecified laterality H10.9 [facility] [id number] [place] [address] 30682- 9243 Jul, Chronic pain G89.29 ; Back pain M54.9 ; Tobacco abuse Z72.0 and Weight decrease R63.4 [facility] [id number] [place] [address] 46448- 2178 Jul, [facility] [id number] [place] [address] 40778- 3152 Jul, [facility] [id number] [place] [address] 15761- 6249 24 Jul, 2015 Chronic pain G89.29 [facility] [address], [place] [address] 0775 Jul, [facility] [id number] [place] [address] 44827- 5441 Jul, [facility] [id number] [place] [address] 43801- 0398 Jul, [facility] [id number] [place] [address] 59148- 1495 17 Jul, 2015 [facility] [address] [address] 5689 17 Jul, 2015 Chronic pain G89.29 [facility] [address], [place] [address]- 6964 16 Jul, 2015 Chronic pain G89.29 [facility] [id number] [place] [address] 42359- 3487 15 Jul, 2015 [facility] [id number] [place] [address] 29563- 5604 Jul, [facility] [id number] [place] [address] 71815- 2747 Jul, [facility] [id number] [place] [address] 02502- 9690 Jul, [facility] [id number] [place] [address] 88958- 4071 Jun, [facility] [id number] [place] [address] 82035- 6081 Jun, Depression, unspecified depression type F32.9 [facility] [id number] [place] [address] 99039- 8188 Jun, Pain in right knee M25.561 [facility] [id number] [place] [address] 46605- 7576 24 Jun, 2015 Chronic pain G89.29 ; Back pain M54.9 ; Bone pain M89.8X9 and Weight loss R63.4 [facility] [id number] [place] [address] 56035- 7499 Jun, [facility] [id number] [place] [address] 06570- 4233 May, [facility] [address] [address]- 9955 May, UTI symptoms R39.9 ; Pain in right knee M25.561 ; Right low back pain, with sciatica presence unspecified M54.5 ; Right foot pain M79.671 ; Hypokalemia E87.6 and Screening, lipid Z13.220 [facility] [id number] [place] [address] 11735- 8346 May, [facility] [id number] [place] [address] 28144- 1686 May, [facility] [id number] [place] [address] 77034- 4526 Mar, [facility] [id number] [place] [address] 10834- 3665 Mar, [facility] [id number] [place] [address] 76691- 2758 Mar, Hypokalemia E87.6 [facility] [address] 44440- 5590 Mar, Pain in right leg M79.604 ; Encounter for immunization Z23 ; Pain in right knee M25.561 and Hypokalemia E87.6 [facility] [id number] [place] [address] 44651- 2698 Jan, [facility] [id number] [place] [address] 07304- 6397 Jan, [facility] [id number] [place] [address] 10352 2548 Jan, Abdominal pain, generalized 789.07 [facility] [id number] [place] [address] 18685 2545 Jan, Abdominal pain, generalized 789.07 [facility] [id number] [place] [address] 54257- 0157 Dec, [facility] [id number] [place] [address] 59512- 4034 Dec, [facility] [address], [place] [address]- 7756 Dec, [facility] [id number] [place] [address] 05407- 6836 Nov, Hallux valgus 735.0 and Hammertoe 735.4 [facility] [address] [address]- 6706 Nov, [facility] [id number] [place] [address] 17218- 8588 Nov, Hallux valgus 735.0 and Hammer toe 735.4 [facility] [id number] [place] [address] 92403- 4496 Oct, [facility] [id number] [place] [address] 63033- 3026 Oct, [facility] [id number] [place] [address] 02437- 5814 Oct, Pre-op evaluation V72.84 [facility] [address] [address]- 8601 Oct, [facility] [id number] [place] [address] 07946- 3959 Oct, [facility] [address] [address]- 0327 September, [facility] [address], [place] [address] 2546 September, [facility] [id number] [address]- 6929 September, Hallux valgus (acquired) 735.0 and Other hammer toe ( acquired) 735.4 [facility] [address] [address]- 2546 Aug, [facility] [id number] [place] [address] 60286- 1701 Aug, [facility] [place] [facility] [address] [id number] [place] [address]- 1113 Jul, [facility] [place] [facility] [address] [id number] [place] [address]- 2113 Jul, [facility] [place] [facility] [address] [id number] [place] [address]- 0300 Jul, [facility] [place] [facility] [address] [id number] [place] [address]- 3289 Jul, [facility] [place] [facility] [address] [id number] [place] [address]- 3121 Jul, [facility] [place] [facility] [address] [id number] [place] [address]- 7782 Jul, [facility] [place] [facility] [address] [facility] [id number] [place] [address]- 6787 Jul, [facility] [place] [facility] [address] [id number] [place] [address]- 1727 Jul, [facility] [place] [facility] [address] [id number] [place] [address]- 0005 Jun, [facility] [place] [facility] [address] [facility] [id number] [place] [address]- 9735 Jun, [facility] [place] [facility] [address] [id number] [place] [address]- 7003 Jun, 2014 [facility] [place] [facility] [address] [id number] [place] [address]- 0416 Jun, [facility] [place] [facility] [address] [id number] [place] [address]- 1458 Jun, [facility] [place] [facility] [address] [id number] [place] [address]- 2898 Jun, [facility] [place] [facility] [address] [facility] [id number] [place] [address]- 1289 Jun, [facility] [place] [facility] [address] [id number] [place] [address]- 6457 Jun, [facility] [address] [id number] [place] [address]- 8496 Jun, [facility] [place] [facility] [address] [id number] [place] [address]- 8586 Jun, [facility] [place] [facility] [address] [id number] [place] [address]- 8596 May, [facility] [place] [facility] [address] [id number] [place] [address]- 9713 May, [facility] [place] [facility] [address] [id number] [place] [address]- 8906 May, [facility] [place] [facility] [address] [id number] [place] [address]- 6588 May, [facility] [place] [facility] [address] [id number] [place] [address]- 6291 May, [facility] [address] [id number] [place] [address]- 8926 May, [facility] [place] [facility] [address] [id number] [place] [address]- 8289 May, [facility] [place] [facility] [address] [id number] [place] [address]- 2230 May, [facility] [place] [facility] [address] [id number] [place] [address]- 2697 May, [facility] [place] [facility] [address] [id number] [place] [address]- 2935 May, [facility] [place] [facility] [address] [id number] [place] [address]- 0623 May, [facility] [place] [facility] [address] [id number] [place] [address]- 5156 May, [facility] [place] [facility] [address] [id number] [place] [address]- 1580 May, [facility] [place] [facility] [address] [id number] [place] [address]- 2376 May, [facility] [place] [facility] [address] [id number] [place] [address]- 5369 May, [facility] [place] [facility] [address] [id number] [place] [address]- 3716 May, [facility] [place] [facility] [address] [id number] [place] [address]- 0608 May, [facility] [place] [facility] [address] [id number] [place] [address]- 7380 May, [facility] [place] [facility] [address] [id number] [place] [address]- 7036 Apr, [facility] [place] [facility] [address] [id number] [place] [address]- 2037 Apr, [facility] [place] [facility] [address] [id number] [place] [address]- 0897 Apr, [facility] [place] [facility] [address] [id number] [place] [address]- 8941 Apr, [facility] [place] [facility] [address] [id number] [place] [address]- 5733 Apr, [facility] [place] [facility] [address] [id number] [place] [address]- 6343 Apr, [facility] [place] [facility] [address] [id number] [place] [address]- 8146 Apr, [facility] [place] [facility] [address] [id number] [place] [address]- 0805 Apr, [facility] [place] [facility] [address] [id number] [place] [address]- 8129 Apr, [facility] [place] [facility] [address] [id number] [place] [address]- 7020 Mar, [facility] [place] [facility] [address] [id number] [place] [address]- 6276 Mar, [facility] [place] [facility] [address] [id number] [place] [address]- 4061 Mar, [facility] [place] [facility] [address] [id number] [place] [address]- 5918 Mar, [facility] [place] [facility] [address] [id number] [place] [address]- 1679 Mar, [facility] [place] [facility] [address] [id number] [place] [address]- 4882 Feb, [facility] [place] [facility] [address] [id number] [place] [address]- 7376 Feb, [facility] [place] [facility] [address] [id number] [place] [address]- 2117 Feb, [facility] [place] [facility] [address] [id number] [place] [address]- 4473 Feb, [facility] [place] [facility] [address] [id number] [place] [address]- 7815 Feb, [facility] [place] [facility] [address] [id number] [place] [address]- 2952 Feb, [facility] [place] [facility] [address] [id number] [place] [address]- 7743 Feb, [facility] [place] [facility] [address] [id number] [place] [address]- 3036 Feb, [facility] [place] [facility] [address] [id number] [address]- 9203 Feb, [facility] [place] [facility] [address] [id number] 2260 Feb, [facility] [place] [facility] [address] [id number], [place] [address]- 8717 Feb, [facility] [place] [facility] [address] [id number] 2118 Feb, [facility] [place] [facility] [address] [id number] [place] [address]- 9737 07 Feb, 2013 [facility] [place] [facility] [address] [id number] [place] [address]- 0281 Feb, [facility] [place] [facility] [address] [id number] [place] [address]- 5703 Feb, 2013 [facility] [place] [facility] [address] [id number] [place] [address]- 2060 Feb, [facility] [place] [facility] [address] [id number] [place] [address]- 7252 Jan, 2013 [facility] [place] [facility] [address] [id number] [place] [address]- 6172 23 Jan, 2013 [facility] [place] [facility] [address] [id number] [place] [address]- 4109 20 Jan, 2014 [facility] [place] [facility] [address] [id number] [place] [address]- 5474 19 Jan, 2013 [facility] [place] [facility] [address] [id number] [place] [address]- 1609 11 Jan, 2014 [facility] [place] [facility] [address] [id number] [place] [address]- 9450 Jan, [facility] [place] [facility] [address] [id number] [place] [address]- 3579 Jan, [facility] [place] [facility] [address] [id number] [place] [address]- 1648 Jan, 2013 [facility] [place] [facility] [address] [id number] [place] [address]- 4619 Dec, [facility] [place] [facility] [address] [id number] [place] [address]- 1746 Dec, [facility] [place] [facility] [address] [id number] [place] [address]- 4844 Nov, [facility] [place] [facility] [address] [id number] [place] [address]- 8045 Nov, [facility] [place] [facility] [address] [id number] [place] [address]- 9299 Nov, [facility] [place] [facility] [address] [id number] [place] [address]- 6003 Nov, [facility] [place] [facility] [address] [id number] [place] [address]- 1330 Nov, [facility] [place] [facility] [address] [id number] [place] [address]- 0988 Nov, [facility] [place] [facility] [address] [id number] [place] [address]- 7120 Nov, [facility] [place] [facility] [address] [id number] [place] [address]- 7646 Nov, [facility] [place] [facility] [address] [id number] [place] [address]- 5940 Nov, [facility] [place] [facility] [address] [id number] [place] [address]- 9308 Oct, [facility] [place] [facility] [address] [id number] [place] [address]- 2593 Oct, [facility] [place] [facility] [address] [id number] [place] [address]- 6480 Oct, [facility] [place] [facility] [address] [id number] [place] [address]- 8431 Oct, [facility] [place] [facility] [address] [id number] [place] [address]- 8109 Oct, [facility] [place] [facility] [address] [id number] [place] [address]- 9137 Oct, [facility] [place] [facility] [address] [id number] [place] [address]- 5344 September, [facility] [place] [facility] [address] [id number] [place] [address]- 5142 September, [facility] [place] [facility] [address] [id number] [place] [address]- 1581 September, [facility] [address] [id number] [place] 2277 September, [facility] [address] [id number] [place] [address]- 6030 September, [facility] [address] [id number] [place] [address]- 0567 September, [facility] [address] [id number] [place] [address]- 3577 September, [facility] [address] [id number] [place] 7900 September, [facility] [address] [id number] [place] [address]- 9606 September, [facility] [address] [id number] [place] [address]- 2764 September, [facility] [address] [id number] [place] [address]- 9866 September, [facility] [address] [id number] [place] [address]- 2408 September, [facility] [address] [id number] [place] [address]- 7022 September, [facility] [address] [id number] [place] [address]- 8075 September, [facility] [address] [id number] [place] [address]- 1113 September, [facility] [place] [facility] [address] [id number] [place] 3376 September, [facility] [place] [facility] [address] [id number] [place] 8736 September, [facility] [address] [id number] [place] [address]- 4698 September, [facility] [place] [facility] [address] [id number] [place] [address]- 6521 September, [facility] [place] [facility] [address] [id number] [place] [address]- 7937 September, [facility] [place] [facility] [address] [id number] [place] [address]- 8239 Aug, [facility] [place] [facility] [address] [id number] [place] [address]- 4091 Aug, [facility] [place] [facility] [address] [id number] [place] [address]- 4002 Aug, [facility] [place] [facility] [address] [id number] [place] [address]- 0372 Aug, [facility] [place] [facility] [address] [id number] [place] [address]- 1456 Aug, [facility] [place] [facility] [address] [id number] [place] [address]- 9246 Aug, [facility] [place] [facility] [address] [id number] [place] [address]- 7792 Aug, [facility] [place] [facility] [address] [id number] [place] [address]- 2986 Aug, [facility] [place] [facility] [address] [id number] [place] [address]- 2071 Aug, [facility] [place] [facility] [address] [id number] [place] [address]- 2653 Aug, [facility] [place] [facility] [address] [id number] [place] [address]- 8551 Aug, [facility] [place] [facility] [address] [id number] [place] [address] Aug, [facility] [place] [facility] [address] [id number] [place] [address] Aug, [facility] [place] [facility] [address] [id number] [place] [address] Aug, [facility] [place] [facility] [address] [id number] [place] [address] Aug, [facility] [place] [facility] [address] [id number] [place] [address] Jul, [facility] [place] [facility] [address] [id number] [place] [address] Jul, [facility] [place] [facility] [address] [id number] [place] [address] Jul, [facility] [place] [facility] [address] [id number] [place] [address] Jul, [facility] [place] [facility] [address] [id number] [place] [address] Jul, [facility] [place] [facility] [address] [id number] [place] [address] Jul, [facility] [place] [facility] [address] [id number] [place] [address] Jul, [facility] [place] [facility] [address] [id number] [place] [address] Jul, [facility] [place] [facility] [address] [id number] [place] [address] Jul, [facility] [place] [facility] [address] [id number] [place] [address]- [address]98 Jul, [facility] [place] [facility] [address] [id number] [place] [address] Jul, [facility] [place] [facility] [address] [id number] [place] [address] Jul, [facility] [place] [facility] [address] [id number] [place] [address] Jul, [facility] [place] [facility] [address] [id number] [place] [address] Jul, [facility] [place] [facility] [address] [id number] [place] [address] Jul, [facility] [place] [facility] [address] [id number] [place] [address] Jun, [facility] [place] [facility] [address] [id number] [place] [address]- [address] Jun, [facility] [place] [facility] [address] [id number] [place] [address] 74[address] Jun, [facility] [place] [facility] [address] [id number] [place] [address]- [address] Jun, [facility] [place] [facility] [address] [id number] [place] [address]- [address] Jun, [facility] [place] [facility] [address] [id number] [place] [address] Jun, [facility] [place] [facility] [address] [id number] [place] [address] 12[address] May, [facility] [place] [facility] [address] [id number] [place] [address] May, [facility] [place] [facility] [address] [id number] [place] [address] May, [facility] [place] [facility] [address] [id number] [place] [address] May, [facility] [place] [facility] [address] [id number] [place] [address] May, [facility] [place] [facility] [address] [id number] [place] [address]- [address] May, [facility] [place] [facility] [address] [id number] [place] [address] 4[address] May, [facility] [place] [facility] [address] [id number] [place] [address] May, [facility] [place] [facility] [address] [id number] [place] [address] May, [facility] [address] [id number] [place] [address]- [address] May, [facility] [place] [facility] [address] [id number] [place] [address] May, [facility] [place] [facility] [address] [id number] [place] [address] May, [facility] [place] [facility] [address] [id number] [place] [address]- [address] May, [facility] [place] [facility] [address] [id number] [place] [address]- [address] May, [facility] [place] [facility] [address] [id number] [place] [address]- 6[address] May, [facility] [place] [facility] [address] [id number] [place] [address]- [address] Apr, [facility] [place] [facility] [address] [id number] [place] [address]60 Apr, [facility] [place] [facility] [address] [id number] [place] [address]- [address] Apr, [facility] [place] [facility] [address] [id number] [place] [address]- 69[address] Apr, [facility] [place] [facility] [address] [id number] [place] [address]- 8320 Apr, [facility] [place] [facility] [address] [id number] [place] [address]- 112[address] Apr, [facility] [place] [facility] [address] [id number] [place] [address]- 97[address] Apr, [facility] [place] [facility] [address] [id number] [place] [address]- 2096 Apr, [facility] [place] [facility] [address] [id number] [place] [address]- [address] Apr, [facility] [place] [facility] [address] [id number] [place] [address]- [address] Apr, [facility] [address] [id number] [place] [address] Mar, [facility] [address] [id number] [place] [address]179 Mar, [facility] [address] [id number] [place] [address] Mar, [facility] [address] [id number] [place] [address] Mar, [facility] [address] [id number] [place] [address]- [address] Mar, [facility] [address] [id number] [place] [address] Mar, [facility] [address] [id number] [place] [address]- [address] Mar, [facility] [address] [id number] [place] [address]- [address] Mar, [facility] [address] [id number] [place] [address]- [address] Mar, [facility] [address] [address] [id number] [place] [address] Mar, [facility] [address] [id number] [place] [address] Mar, [facility] [address] [id number] [place] [address]284 Mar, [facility] [place] [facility] [address] [id number] [place] [address] 46[address] Mar, [facility] [place] [facility] [address] [id number] [place] [address] 3572 Mar, [facility] [address] [id number] [place] [address] 5[address] Mar, [facility] [place] [facility] [address] [id number] [place] [address] 7273 18 Mar, 2013 [facility] [place] [facility] [address] [id number] [place] [address] 8484 Mar, [facility] [place] [facility] [address] [id number] [place] [address] 8378 Mar, [facility] [place] [facility] [address] [id number] [place] [address] 2742 Mar, [facility] [place] [facility] [address] [id number] [place] [address] 6332 Mar, [facility] [place] [facility] [address] [id number] [place] [address] 9827 Mar, [facility] [place] [facility] [address] [id number] [place] [address] 9107 Mar, [facility] [place] [facility] [address] [id number], [place] [address] Mar, [facility] [place] [facility] [address] [id number], [place] [address] Feb, [facility] [place] [facility] [address] [id number], [place] [address]65 Feb, [facility] [place] [facility] [address] [id number], [place] [address] 7933 Feb, [facility] [place] [facility] [address] [id number], [place] [address] 8424 16 Feb, 2013 [facility] [place] [facility] [address] [id number], [place] [address] 1685 15 Feb, 2013 [facility] [place] [facility] [address] [id number], [place] [address] 9209 Feb, [facility] [place] [facility] [address] [facility] [id number], [place] [address]- 3092 Feb, [facility] [place] [facility] [address] [id number], [place] [address] Feb, [facility] [address] [id number] [place] [address]- 9180 Feb, [facility] [place] [facility] [address] [id number] [place] [address]- 6222 Feb, [facility] [place] [facility] [address] [id number] [place] [address]- 6765 30 Jan, 2013 [facility] [place] [facility] [address] [id number] [place] [address]- 9394 26 Jan, 2013 [facility] [place] [facility] [address] [id number] [place] [address]- 5920 24 Jan, 2013 [facility] [place] [facility] [address] [id number] [place] [address]- 2262 23 Jan, 2013 [facility] [place] [facility] [address] [id number] [place] [address]- 4645 17 Jan, 2013 [facility] [place] [facility] [address] [id number] [place] [address]- 6780 Dec, [facility] [place] [facility] [address] [id number] [place] [address]- 0606 Dec, [facility] [place] [facility] [address] [id number] [place] [address]- 9609 Dec, [facility] [place] [facility] [address] [id number] [place] [address]- 6198 15 Dec, 2012 [facility] [place] [facility] [address] [id number] [place] [address]- 3724 14 Dec, 2012 [facility] [place] [facility] [address] [id number] [place] [address]- 7435 Dec, [facility] [place] [facility] [address] [id number] [place] [address]- 0970 Dec, [facility] [place] [facility] [address] [id number] [place] [address] 8340 Nov, [facility] [place] [facility] [address] [id number] [place] [address]- 2546 16 Nov, 2012 [facility] [address] [id number] [place] [address]- 2526 15 Nov, 2012 [facility] [place] [facility] [address] [id number] [place] [address]- 2546 05 Nov, 2012 [facility] [address] [id number] [place] [address]- 2546 Nov, [facility] [place] [facility] [address] [id number] [place] [address]- 1056 Oct, [facility] [address] [id number] [place] [address]- 2166 Oct, [facility] [place] [facility] [address] [id number] [place] [address]- 2546 Oct, [facility] [address] [id number] [place] [address]- 3586 September, [facility] [address] [id number] [place] [address] 3600 September, [facility] [address] [id number] [place] [address]- 9056 September, [facility] [address] [id number] [place] [address]- 7906 September, [facility] [place] [facility] [address] [id number] [place] [address]- 7316 September, [facility] [address] [id number] [place] [address]- 2546 September, [facility] [place] [facility] [address] [id number] [place] [address]- 2546 September, [facility] [place] [facility] [address] [id number] [place] [address]- 2546 Aug, [facility] [place] [facility] [address] [id number] [place] [address]- 3010 23 Aug, 2012 [facility] [place] [facility] [address] [id number] [place] [address]- 3546 11 Aug, 2012 [facility] [place] [facility] [address] [id number] [place] [address]- 0827 29 Jul, 2012 [facility] [place] [facility] [address] [id number] [place] [address]- 3540 27 Jul, 2012 [facility] [place] [facility] [address] [id number] [place] [address]- 9653 26 Jul, 2012 [facility] [place] [facility] [address] [id number] [place] [address]- 2844 20 Jul, 2012 [facility] [place] [facility] [address] [id number] [place] [address]- 9670 18 Jul, 2012 [facility] [place] [facility] [address] [facility] [id number] [place] [address]- 5149 18 Jul, 2012 [facility] [place] [facility] [address] [id number] [place] [address]- 1790 13 Jul, 2012 [facility] [place] [facility] [address] [id number] [place] [address]- 5810 28 Jun, 2012 [facility] [place] [facility] [address] [facility] [id number] [place] [address]- 2177 27 Jun, 2012 [facility] [place] [facility] [address] [facility] [id number] [place] [address]- 5658 22 Jun, 2012 [facility] [place] [facility] [address] [id number] [place] [address]- 5597 20 Jun, 2012 [facility] [place] [facility] [address] [id number] [place] [address]- 9524 15 Jun, 2012 [facility] [place] [facility] [address] [id number] [place] [address]- 3115 15 Jun, 2012 [facility] [place] [facility] [address] [facility] [id number] [place] [address]- 8098 13 Jun, 2012 [facility] [place] [facility] [address] [id number] [place] [address]- 6886 Jun, [facility] [address] [id number] [place] [address]- 4756 Jun, [facility] [place] [facility] [address] [id number] [place] [address]- 2546 Jun, [facility] [address] [id number] [place] [address]- 7126 May, [facility] [place] [facility] [address] [id number] [place] [address] 2548 May, [facility] [address] [id number] [place] [address]- 0766 May, [facility] [address] [id number] [place] [address]- 4199 May, [facility] [address] [id number] [place] [address]- 0266 May, [facility] [address] [id number] [place] [address]- 5948 May, [facility] [address] [id number] [place] [address]- 3249 31 Apr, 2012 [facility] [address] [id number] [place] [address] 2546 31 Apr, 2012 [facility] [address] [id number] [place] [address] 2546 Apr, [facility] [place] [facility] [address] [id number] [place] [address] 2540 28 Apr, 2012 [facility] [place] [facility] [address] [id number] [place] [address] 2546 26 Apr, 2012 [facility] [place] [facility] [address] [id number] [place] [address]- 2546 20 Apr, 2012 [facility] [place] [facility] [address] [id number] [place] [address]- 3776 Apr, [facility] [place] [facility] [address] [id number] [place] [address]- 7277 Mar, [facility] [place] [facility] [address] [id number] [place] [address]- 8899 Mar, [facility] [place] [facility] [address] [facility] [id number] [place] [address]- 0081 Mar, [facility] [place] [facility] [address] [id number] [place] [address]- 2213 Mar, [facility] [place] [facility] [address] [id number] [place] [address]- 6053 Mar, [facility] [place] [facility] [address] [id number], [place] [address]- 2956 Mar, [facility] [place] [facility] [address] [id number] [place] [address]- 7232 Mar, [facility] [place] [facility] [address] [id number], [place] [address]- 7941 Mar, [facility] [place] [facility] [address] [id number], [place] [address]- 3032 Mar, [facility] [place] [facility] [address] [id number], [place] [address]- 6558 Mar, [facility] [place] [facility] [address] [id number], [place] [address]- 0066 Mar, [facility] [place] [facility] [address] [id number], [place] [address]- 5548 Mar, [facility] [place] [facility] [address] [id number], [place] [address]- 3320 Mar, [facility] [place] [facility] [address] [facility] [id number], [place] [address]- 0723 Mar, [facility] [place] [facility] [address] [facility] [id number], [place] [address]- 6909 Mar, [facility] [place] [facility] [address] [id number] [place] [address]- 8502 Mar, [facility] [place] [facility] [address] [id number] [place] [address]- 9521 Mar, [facility] [place] [facility] [address] [id number] [place] [address]- 6200 Feb, [facility] [place] [facility] [address] [id number] [place] [address]- 0671 Feb, 2011 [facility] [place] [facility] [address] [id number] [place] [address]- 0177 Feb, [facility] [place] [facility] [address] [id number] [place] [address]- 3104 Feb, [facility] [place] [facility] [address] [id number] [place] [address]- 4820 Feb, [facility] [place] [facility] [address] [id number] [place] [address]- 7071 Feb, [facility] [place] [facility] [address] [id number] [place] [address]- 0721 Feb, [facility] [place] [facility] [address] [id number] [place] [address]- 5760 Feb, [facility] [place] [facility] [address] [facility] [id number] [place] [address]- 6895 Feb, [facility] [place] [facility] [address] [id number] [place] [address]- 0006 Feb, [facility] [place] [facility] [address] [id number] [place] [address]- 6515 Feb, [facility] [place] [facility] [address] [id number] [place] [address]- 3041 27 Jan, 2011 [facility] [place] [facility] [address] [id number] [place] [address]- 0902 25 Jan, 2012 [facility] [place] [facility] [address] [id number] [place] [address]- 9516 13 Jan, 2012 [facility] [place] [facility] [address] [id number] [place] [address]- 2478 12 Jan, 2012 [facility] [place] [facility] [address] [id number] [place] [address]- 9732 Jan, [facility] [place] [facility] [address] [id number] [place] [address]- 1912 Dec, [facility] [place] [facility] [address] [id number] [place] [address]- 8702 Dec, [facility] [place] [facility] [address] [id number] [place] [address]- 0400 Dec, [facility] [place] [facility] [address] [id number] [place] [address]- 0366 Dec, [facility] [place] [facility] [address] [id number] [place] [address]- 5134 Dec, [facility] [place] [facility] [address] [id number] [place] [address]- 6704 Dec, [facility] [place] [facility] [address] [id number] [place] [address]- 7452 Dec, [facility] [place] [facility] [address] [id number] [place] [address]- 5796 Dec, [facility] [place] [facility] [address] [id number] [place] [address]- 6534 Nov, [facility] [place] [facility] [address] [id number] [place] [address]- 5963 Nov, [facility] [place] [facility] [address] [id number] [place] [address]- 6578 Nov, [facility] [place] [facility] [address] [id number] [place] [address]- 4984 Nov, [facility] [place] [facility] [address] [id number] [place] [address]- 9881 Nov, [facility] [place] [facility] [address] [id number] [place] [address]- 0711 Oct, [facility] [address] [id number] [place] [address]379 Oct, [facility] [place] [facility] [address] [id number] [place] [address]- 3366 September, [facility] [address] [id number] [place] [address]- 3326 September, [facility] [place] [facility] [address] [id number] [place] [address]- 5494 September, [facility] [address] [id number] [place] [address]- 5062 September, [facility] [place] [facility] [address] [id number] [place] [address]- 0321 September, [facility] [address] [id number] [place] [address]- 2282 September, [facility] [place] [facility] [address] [id number] [place] [address]- 7966 September, [facility] [place] [facility] [address] [id number] [place] [address]- 8554 September, [facility] [place] [facility] [address] [id number] [place] [address]- 0699 September, [facility] [place] [facility] [address] [id number] [place] [address]- 6451 September, [facility] [place] [facility] [address] [id number] [place] [address]- 0863 September, [facility] [place] [facility] [address] [id number] [place] [address]- 5027 September, [facility] [place] [facility] [address] [id number] [place] [address]- 6849 September, [facility] [place] [facility] [address] [id number] [place] [address]- 1453 September, [facility] [place] [facility] [address] [id number] [place] [address]- 2152 24 Aug, 2011 [facility] [address] [id number] [place] [address]- 6524 20 Aug, 2011 [facility] [address] [id number] [place] [address]- 9916 13 Aug, 2011 [facility] [address] [id number] [place] [address]- 1452 11 Aug, 2011 [facility] [address] [id number] [place] [address]- 6549 23 Jul, 2011 [facility] [address] [id number] [place] [address]- 9975 13 Jul, 2011 [facility] [address] [id number] [place] [address]- 4507 13 Jul, 2011 [facility] [address] [id number] [place] [address]- 7174 28 Jun, [address] [facility] [address] [id number] [id number] 26 Jun, 2011 [facility] [address] [id number] [place] [address]- 5017 13 Jun, 2011 [facility] [address] [id number] [place] [address]- 7407 10 Jun, 2011 [facility] [address] [id number] [place] [address]- 2066 07 Jun, 2011 [facility] [address] [id number] [place] [address]- 5796 07 Jun, 2011 [facility] [place] [facility] [address] [id number] [place] [address]- 7866 03 Jun, 2011 [facility] [place] [facility] [address] [id number] [place] [address]- 3196 02 Jun, 2011 [facility] [place] [facility] [address] [id number] [place] [address]- 3427 31 May, 2011 [facility] [address] [id number] [place] [address]- 5483 30 May, 2011 [facility] [address] [id number] [place] [address]- 8792 May, [facility] [address] [id number] [place] [address]- 2298 May, [facility] [address] [id number] [place] [address]- 6025 May, [facility] [address] [id number] [place] [address]- 3459 May, [facility] [address] [id number] [place] [address]- 1169 May, [facility] [address] [id number] [place] [address]- 7993 May, [facility] [place] [facility] [address] [id number] [place] [address]- 5909 May, [facility] [address] [id number] [place] [address]- 0170 May, [facility] [place] [facility] [address] [id number] [place] [address]- 4201 May, [facility] [address] [id number], [place] [address]- 0867 May, [facility] [place] [facility] [address] [id number], [place] [address]- 9304 May, [facility] [place] [facility] [address] [id number] [place] [address]- 1214 May, [facility] [place] [facility] [address] [id number] [place] [address] 30 Apr, 2011 [facility] [place] [facility] [address] [id number] [place] [address] 16 Apr, 2011 [facility] [place] [facility] [address] [id number] [place] [address] 05 Apr, 2011 [facility] [place] [facility] [address] [id number] [place] [address] 17 Mar, 2011 [facility] [place] [facility] [address] [id number] [place] [address] Mar, [facility] [place] [facility] [address] [id number] [place] [address] 31 Feb, 2011 [facility] [place] [facility] [address] [id number] [place] [address]46 26 Feb, 2011 [facility] [place] [facility] [address] [id number] [place] [address] Feb, [facility] [place] [facility] [address] [id number] [place] [address] 20 Feb, 2011 [facility] [place] [facility] [address] [id number] [place] [address] 13 Feb, 2011 [facility] [place] [facility] [address] [id number] [place] [address] 28 Apr, 2010 [facility] [place] [facility] [address] [id number] [place] [address]46 22 Apr, 2010 [facility] [place] [facility] [address] [facility] [id number] [place] [address] 2544 16 Apr, 2010 [facility] [place] [facility] [address] [id number] [place] [address] 2546 15 Apr, 2010 [facility] [place] [facility] [address] [id number] [place] [address] 2546 15 Apr, 2010 [facility] [place] [facility] [address] [id number] [place] [address] 2546 Apr, [facility] [place] [facility] [address] [id number] [place] [address] 2546 24 Mar, 2010 [facility] [place] [facility] [address] [id number] [place] [address] 254 17 Mar, 2010 [facility] [id number] [address] 17 Mar, 2010 [facility] [id number] [address] 28 Feb, 2010 [facility] [id number] [address] Feb, [facility] [id number] [place] [address] Feb, [facility] [id number], [place] [address] Feb, [facility] [id number] [place] [address] Dec, [facility] [id number], [place] [address] Dec, [facility] [id number] [place] [address] Oct, [facility] [id number], [place] [address] Mar, [facility] [id number] [address] Mar, [facility] [id number], [place] [address] September, IMMUNIZATIONS No Known Immunizations SOCIAL HISTORY Never Assessed REASON FOR VISIT [place] [place] VITAL SIGNS MEDICATIONS Unknown [...]
--- OUTSIDE RECORDS SUMMARY | 2018-09-19 09:06 | XMS REPORT ---
Author Author Migration, Doctor Organization [facility] Address Unknown Phone Unavailable Care Team Providers Care Director Of Counterintelligence Name Role Phone Migration, Doctor Unavailable Unavailable PROBLEMS Type Condition ICD9-CM Code WCL84-LS Code Onset Dates Condition Status SNOMED Code Problem Hypokalemia E87.6 Active 117359841 Problem Generalized anxiety disorder F41.1 Active 58591612 Problem Pain in right knee M25.561 Active 19432984 Problem Right low back pain, with sciatica presence unspecified M54.5 Active 709357401 Problem Right foot pain M79.671 Active 07407192 Problem UTI symptoms R39.9 Active 45659361 Problem Essential hypertension I10 Active 89629776 Problem Gastroesophageal reflux disease without esophagitis K21.9 Active 714154076 Problem Weight decrease R63.4 Active 194247368 Problem Depression, unspecified depression type F32.9 Active 43064246 Problem Right upper quadrant abdominal pain R10.11 Active 330499297 Problem Tobacco abuse Z72.0 Active 08074912 Problem Insomnia, unspecified type G47.00 Active 186023002 Problem Weight loss R63.4 Active 657857448 Problem Post-traumatic stress disorder, chronic F43.12 Active 02478226 Problem Pulmonary emphysema, unspecified emphysema type J43.9 Active 76881811 Problem Neuropathy G62.9 Active 896516753 Problem Anxiety F41.9 Active 29395551 Problem Other emphysema J43.8 Active 96112959 Problem Other chronic pain G89.29 Active 30697326 Problem Chronic pain G89.29 Active 19597265 Problem Opioid use disorder, moderate, dependence F11.20 Active 91917805 Problem Back pain M54.9 Active 471137911 Problem Bone pain M89.8X9 Active 55925065 Problem Panic attacks F41.0 Active 815977014 Problem Kidney stones N20.0 Active 62970588 Problem Renal calculus, right N20.0 Active 56491090 Problem Generalized abdominal pain R10.84 Active 241134194 ALLERGIES No Information ENCOUNTERS Encounter Location Date Diagnosis [facility] [address], [place] [address] Feb, [facility] [id number] [place] [address] 24464- 2397 Dec, [facility] [id number] [place] [address] 91886- 2304 Dec, [facility] [id number] [place] [address] 30443- 9415 Dec, Medicare welcome exam Z00.00 [facility] [id number] [place] [address] 13261- 5491 17 Nov, 2017 Opioid use disorder, moderate, dependence F11.20 [facility] [id number] [place] [address] 80193- 2891 16 Nov, 2017 Pelvic pain R10.2 ; Acute pyelonephritis N10 and Essential hypertension I10 [facility] [id number] [place] [address] 77352- 9865 28 Oct, 2017 Medicare welcome exam Z00.00 [facility] [id number] [place] [address] 93122- 1089 Oct, Gross hematuria R31.0 ; Urinary tract infection without hematuria, site unspecified N39.0 and Weakness R53.1 [facility] [id number] [place] [address] 70190- 7494 Oct, [facility] [id number] [place] [address] 24268- 4128 Oct, [facility] [id number] [place] [address] 53233- 6770 Oct, Medicare welcome exam Z00.00 [facility] [id number] [place] [address] 09887- 9894 September, Back pain M54.9 and Right anterior knee pain M25.561 [facility] [id number] [place] [address] 41804- 9971 September, [facility] [address] [address] 7289 September, [facility] [id number] [place] [address] 33518- 5147 September, Essential hypertension I10 [facility] [id number] [place] [address] 56875- 0231 September, [facility] [id number] [place] [address] 86714- 6313 September, RLQ abdominal pain R10.31 ; Low back pain M54.5 and Other chronic pain G89.29 [facility] [id number] [place] [address] 72348- 2947 Aug, Medicare welcome exam Z00.00 [facility] [id number] [place] [address] 33389- 5048 Aug, [facility] [id number] [place] [address] 18268- 5990 Aug, Acute pyelonephritis N10 and Medicare welcome exam Z00.00 [facility] [id number] [place] [address] 73365 -4583 Aug, Dysuria R30.0 and Acute pyelonephritis N10 [facility] [address], [place] [address] 1367 Aug, [facility] [id number] [place] [address] 36263- 3340 Aug, [facility] [id number] [place] [address] 64121- 7054 Aug, [facility] [id number] [place] [address] 65539- 8754 Aug, [facility] [address], [place] [address] 8219 Jul, [facility] [id number] [place] [address] 16341- 5484 Jul, Renal calculus, right N20.0 and Medicare welcome exam Z00.00 [facility] [id number] [place] [address] 02161 -4819 Jul, Dysuria R30.0 and Renal calculus, right N20.0 [facility] [id number] [place] [address] 46305- 8604 Jul, Medicare welcome exam Z00.00 [facility] [id number] [place] [address] 15060- 1445 Jun, Gastroesophageal reflux disease without esophagitis K21.9 and Generalized abdominal pain R10.84 [facility] [id number] [place] [address] 01431- 6821 Jun, Medicare welcome exam Z00.00 [facility] [id number] [place] [address] 48473- 8204 Jun, [facility] [id number] [place] [address] 80906- 0477 Jun, Medicare welcome exam Z00.00 and Encounter for screening mammogram for malignant neoplasm of breast Z12.31 [facility] [id number] [place] [address] 76324- 8150 Jun, Chronic pain G89.29 [facility] [id number] [place] [address] 77059- 0354 May, [facility] [id number] [place] [address] 44528- 4294 May, Pelvic pain R10.2 [facility] [id number] [place] [address] 05025- 9157 May, Pelvic pain R10.2 [facility] [id number] [place] [address] 43385 -2919 May, Renal calculus, right N20.0 [facility] [id number] [place] [address] 00631- 9280 May, Hematuria, unspecified type R31.9 and Nephrolithiasis N20.0 [facility] [id number] [place] [address] 73610 -1579 May, Dysuria R30.0 and Nephrolithiasis N20.0 [facility] [id number] [place] [address] 43131- 3704 May, [facility] [id number] [place] [address] 83611 -2078 May, Abdominal pain R10.9 and Kidney stone N20.0 [facility] [id number] [place] [address] 87087- 5590 May, [facility] [id number] [place] [address] 33007- 2126 May, Chronic pain G89.29 and Panic attacks F41.0 [facility] [id number] [place] [address] 86988- 2430 May, Urinary tract infection without hematuria, site unspecified N39.0 [facility] [id number] [place] [address] 13697- 9803 Apr, Right lower quadrant abdominal pain R10.31 and Abnormal serum lipase level R74.8 [facility] [id number] [place] [address] 24968- 0985 Apr, Recurrent urinary tract infection N39.0 [facility] [id number] [place] [address] 75908- 9204 Apr, UTI symptoms R39.9 ; Recurrent urinary tract infection N39.0 and Pelvic pain R10.2 [facility] [id number] [place] [address] 44296- 5734 Apr, Chronic pain G89.29 and Panic attacks F41.0 [facility] [id number] [place] [address] 28882- 7476 Apr, Dysuria R30.0 [facility] [id number] [place] [address] 73313- 0640 Apr, [facility] [id number] [place] [address] 60560- 8451 Apr, Dysuria R30.0 and Urinary tract infection without hematuria , site unspecified N39.0 [facility] [id number] [place] [address] 98610- 3506 Mar, UTI symptoms R39.9 [facility] [id number] [place] [address] 22425- 1627 Mar, [facility] [id number] [place] [address] 33686- 1298 Mar, Panic attacks F41.0 and Chronic pain G89.29 [place] [facility] [address] 36249- 0604 Mar, [facility] [id number] [place] [address] 47497- 3457 Mar, Dysuria R30.0 [facility] [id number] [place] [address] 93930- 4008 Mar, Dysuria R30.0 [facility] [id number] [place] [address] 44956- 4419 Feb, Chronic pain G89.29 ; Shortness of breath R06.02 ; Weight loss R63.4 ; Encounter for immunization Z23 ; Bone pain M89.8X9 ; Right anterior knee pain M25.561 and Cough R05 [facility] [id number] [place] [address] 39014- 0616 Feb, Shortness of breath R06.02 [facility] [id number] [place] [address] 82498- 7539 Feb, [facility] [id number] [place] [address] 72447- 3627 Feb, Panic attacks F41.0 and Chronic pain G89.29 [place] [address] 59436- 4298 Feb, [facility] [address] 01858- 6104 04 Feb, 2017 Panic attacks F41.0 ; Shortness of breath R06.02 and Encounter for immunization Z23 [place] [address] 06735- 3938 Jan, [facility] [address] 31332- 4072 15 Jan, 2017 Anxiety F41.9 and Chronic pain G89.29 [facility] [address] 27986- 8465 Dec, Anxiety F41.9 and Chronic pain G89.29 [facility] [facility] [address] 63194- 0949 Nov, Chronic pain G89.29 [place] [facility] [address] 18523- 3839 Nov, Anxiety F41.9 [facility] [address] 40376- 4350 Nov, Chronic pain G89.29 ; Essential hypertension I10 and Other emphysema J43.8 [facility] [id number] [place] [address] 72983- 8449 Oct, Anxiety F41.9 [place] [facility] [address] 49988- 1519 Oct, [facility] [address] 89186- 2470 Oct, Chronic pain G89.29 [place] [facility] [address] 22746- 1563 September, Recurrent UTI N39.0 ; Neuropathy G62.9 and Anxiety F41.9 [facility] [id number] [place] [address] 57671- 4277 September, [facility] [id number] [place] [address] 74542- 0378 September, Chronic pain G89.29 [facility] [id number] [place] [address] 22159- 2646 September, [facility] [address] 54897- 5412 Aug, Post-traumatic stress disorder, chronic F43.12 ; Chronic urinary tract infection N39.0 ; Gastroesophageal reflux disease without esophagitis K21.9 ; Chronic pain G89.29 ; Essential hypertension I10 and Tobacco abuse Z72.0 [facility] [id number] [place] [address] 53829 -7775 Aug, [facility] [address] 82812- 4558 Aug, Chronic pain G89.29 [facility] [address] 46262- 1767 Aug, Insomnia, unspecified type G47.00 [facility] [id number] [place] [address] 24921- 5053 Aug, [facility] [id number] [place] [address] 89098- 4331 Jul, Chronic pain G89.29 [facility] [id number] [place] [address] 75219- 2980 Jul, [facility] [address] 74643- 2601 Jul, [facility] [id number] [place] [address] 89863- 0307 Jul, [facility] [address] 95516- 2013 15 Jul, 2016 Recurrent UTI (urinary tract infection) N39.0 [facility] [id number] [place] [address] 51506- 0751 14 Jul, 2016 [facility] [id number] [place] [address] 14919- 5653 27 Jun, 2016 Chronic pain G89.29 [facility] [id number] [place] [address] 68224- 9455 17 Jun, 2016 [facility] [id number] [place] [address] 07734- 2672 Jun, [facility] [id number] [place] [address] 17980- 1650 May, Chronic pain G89.29 [facility] [id number] [place] [address] 25666- 8154 May, Weight loss R63.4 and Shortness of breath R06.02 [facility] [id number] [place] [address] 64188- 3868 May, Chronic pain G89.29 ; Weight loss R63.4 and Tobacco abuse Z72.0 [facility] [id number] [place] [address] 33428- 2756 May, [facility] [id number] [place] [address] 49339- 2593 May, Hypoxia R09.02 [facility] [id number] [place] [address] 00565- 7158 May, [facility] [id number] [place] [address] 23765- 0925 May, Pulmonary emphysema, unspecified emphysema type J43.9 [facility] [id number] [place] [address] 37911 -8105 May, [facility] [id number] [place] [address] 13397- 7217 May, [facility] [id number] [place] [address] 79805- 6804 May, [facility] [address] 21161- 3383 May, Chronic pain G89.29 ; Encounter for immunization Z23 ; Right anterior knee pain M25.561 and Cough R05 [facility] [address] 25848- 5465 Apr, Chronic pain G89.29 [facility] [id number] [place] [address] 90778- 0741 Apr, [facility] [address] 03324- 6731 Apr, Generalized anxiety disorder F41.1 and Depression, unspecified depression type F32.9 [facility] [facility] [address] 91290- 2125 Apr, Chronic pain G89.29 ; Hypokalemia E87.6 and Insomnia, unspecified type G47.00 [facility] [id number] [place] [address] 79093- 1125 Apr, [facility] [id number] [place] [address] 62917- 1804 Apr, Chronic pain G89.29 [facility] [id number] [place] [address] 55330- 4932 Apr, [facility] [id number] [place] [address] 13017- 5327 Mar, [facility] [id number] [place] [address] 97679- 1198 Mar, Insomnia, unspecified type G47.00 [facility] [id number] [place] [address] 43149- 7566 Mar, Chronic pain G89.29 [facility] [id number] [place] [address] 54287- 8092 Mar, [facility] [address] [address]- 9749 Feb, [facility] [address], [place] [address]- 2782 Feb, [facility] [id number] [place] [address] 23457- 7230 Feb, [facility] [id number] [place] [address] 39402- 8119 Feb, [facility] [id number] [place] [address] 10237- 4797 Feb, [facility] [id number] [place] [address] 74494- 3371 29 Jan, 2016 [facility] [id number] [place] [address] 99133- 4010 26 Jan, 2015 [facility] [address], [place] [address]- 6146 20 Jan, 2015 [facility] [id number] [place] [address] 78481- 7093 13 Jan, 2015 [facility] [address] [address]- 4870 12 Jan, 2016 [facility] [id number] [place] [address] 03548- 8279 07 Jan, 2015 Chronic pain G89.29 [facility] [address] [address]- 7779 Jan, 2015 Chronic pain G89.29 and Fibromyalgia M79.7 [facility] [address] [address]- 4168 Dec, Depression, unspecified depression type F32.9 and Generalized anxiety disorder 300.02 [facility] [address] [address]- 6366 Dec, Dysthymia F34.1 ; Insomnia, unspecified type G47.00 and Chronic pain G89.29 [facility] [address] [facility] [id number] [place] [address] 82151- 7079 Dec, Chronic pain G89.29 [facility] [id number] [place] [address] 82305 2546 Dec, Insomnia, unspecified type G47.00 [facility] [address] [facility] [id number] [place] [address] 28082 254 Dec, Fibromyalgia M79.7 and Chronic pain G89.29 [facility] [id number] [place] [address] 39994- 0376 Dec, [facility] [id number] [place] [address] 90519 2546 Dec, [facility] [id number] [place] [address] 25463- 1861 Dec, [facility] [id number] [place] [address] 15745 2546 Dec, [facility] [id number] [place] [address] 48997- 7841 Dec, Chronic pain G89.29 [facility] [id number] [place] [address] 45652 2548 Dec, [facility] [id number] [place] [address] 65978 2544 Dec, [facility] [id number] [place] [address] 72535 2546 Dec, [facility] [id number] [place] [address] 54208 2547 Dec, Chronic pain G89.29 and Dysthymia F34.1 [facility] [id number] [place] [address] 91153 2545 Nov, [facility] [id number] [place] [address] 61246- 9318 Nov, Hypokalemia E87.6 and Chronic pain G89.29 [place] [address] 90838- 6162 Nov, Back pain M54.9 and Pain in right knee M25.561 [place] [address] 47883- 6191 Nov, [facility] [facility] [address] 77150- 0696 Nov, Chronic pain G89.29 [facility] [address] 74882- 8199 Nov, Chronic pain G89.29 ; Weight loss R63.4 ; Bone pain M89.8X9 and Insomnia, unspecified type G47.00 [place] [address] 51463- 1782 Nov, Chronic pain G89.29 [facility] [address] 18910- 6438 Nov, Chronic pain G89.29 [place] [address] 67601- 3217 30 Oct, 2015 Chronic pain G89.29 [facility] [id number] [place] [address] 99262- 0748 Oct, UTI symptoms R39.9 [facility] [id number] [place] [address] 41449- 9168 27 Oct, 2015 Chronic pain G89.29 [facility] [address] 83023- 4113 20 Oct, 2015 Chronic pain G89.29 [facility] [id number] [place] [address] 42221- 1865 13 Oct, 2015 Chronic pain G89.29 [place] [address] 12526- 2539 Oct, Right upper quadrant abdominal pain R10.11 [facility] [address] [address]- 1032 Oct, Chronic pain G89.29 [facility] [id number] [address] Oct, [facility] [id number] [place] [address] 97184- 6223 September, Chronic pain G89.29 [facility] [id number] [place] [address] 60055- 0906 September, Dysuria R30.0 and Urinary tract infection without hematuria , site unspecified N39.0 [facility] [id number] [place] [address] 71143- 8710 September, [facility] [id number] [place] [address] 82559- 5703 September, Dysuria R30.0 [facility] [id number] [place] [address] 76768- 0058 September, Chronic pain G89.29 [facility] [id number] [place] [address] 12944- 6092 September, Chronic pain G89.29 and Essential hypertension I10 [facility] [id number] [address] September, [facility] [id number] [place] [address] 09370- 0213 September, [facility] [id number] [place] [address] 60948- 5614 September, [facility] [id number] [place] [address] 64579- 8229 Aug, UTI symptoms R39.9 [facility] [id number] [address] Aug, Dysuria R30.0 [facility] [id number] [address] Aug, [facility] [id number] [place] [address] 12191- 4313 Aug, [facility] [id number] [place] [address] 86176- 4614 Aug, [facility] [id number] [place] [address] 71307- 3852 Aug, Chronic pain G89.29 [facility] [id number] [place] [address] 64275- 3321 Aug, Dysthymia F34.1 [facility] [id number] [place] [address] 38403- 4326 Aug, Conjunctivitis, unspecified conjunctivitis type, unspecified laterality H10.9 [facility] [id number] [place] [address] 01057- 0510 Jul, Chronic pain G89.29 ; Back pain M54.9 ; Tobacco abuse Z72.0 and Weight decrease R63.4 [facility] [address] [id number] [place] [address] 99913- 2656 Jul, [facility] [id number] [place] [address] 02595- 5599 Jul, [facility] [id number] [place] [address] 51528- 4674 24 Jul, 2015 Chronic pain G89.29 [facility] [address] [address] 1724 Jul, [facility] [id number] [place] [address] 29634- 6173 Jul, [facility] [id number] [place] [address] 12654- 5777 Jul, [facility] [id number] [place] [address] 61714- 6397 17 Jul, 2015 [facility] [address] [address] 4645 17 Jul, 2015 Chronic pain G89.29 [facility] [address], [place] [address] 9873 16 Jul, 2015 Chronic pain G89.29 [facility] [id number] [place] [address] 01401- 6506 15 Jul, 2015 [facility] [id number] [place] [address] 82383- 7920 Jul, [facility] [id number] [place] [address] 51264- 6285 Jul, [facility] [id number] [place] [address] 20645- 8150 Jul, [facility] [id number] [place] [address] 48207- 8175 Jun, [facility] [id number] [place] [address] 55647- 6887 Jun, Depression, unspecified depression type F32.9 [facility] [id number] [place] [address] 46394- 6453 Jun, Pain in right knee M25.561 [facility] [id number] [place] [address] 96256- 9857 24 Jun, 2015 Chronic pain G89.29 ; Back pain M54.9 ; Bone pain M89.8X9 and Weight loss R63.4 [facility] [id number] [place] [address] 38775- 7529 Jun, [facility] [id number] [place] [address] 35061- 2640 May, [facility] [address] [address] 9072 May, UTI symptoms R39.9 ; Pain in right knee M25.561 ; Right low back pain, with sciatica presence unspecified M54.5 ; Right foot pain M79.671 ; Hypokalemia E87.6 and Screening, lipid Z13.220 [facility] [id number] [place] [address] 00733- 1374 May, [facility] [id number] [place] [address] 64420- 2893 May, [facility] [id number] [place] [address] 70752- 6925 Mar, [facility] [id number] [place] [address] 67510- 4489 Mar, [facility] [id number] [place] [address] 60017- 5927 Mar, Hypokalemia E87.6 [facility] [address] [address]- 6123 Mar, Pain in right leg M79.604 ; Encounter for immunization Z23 ; Pain in right knee M25.561 and Hypokalemia E87.6 [facility] [id number] [place] [address] 73691- 1991 Jan, [facility] [id number] [place] [address] 09929- 7409 Jan, [facility] [id number] [place] [address] 99272 2540 Jan, Abdominal pain, generalized 789.07 [facility] [id number] [place] [address] 73974 2548 Jan, Abdominal pain, generalized 789.07 [facility] [id number] [place] [address] 41181- 4068 Dec, [facility] [id number] [place] [address] 51751- 1096 Dec, [facility] [address] [address]- 2966 Dec, [facility] [id number] [place] [address] 56187- 0539 Nov, Hallux valgus 735.0 and Hammertoe 735.4 [facility] [address] [address]- 0436 Nov, [facility] [id number] [place] [address] 35366- 0688 Nov, Hallux valgus 735.0 and Hammer toe 735.4 [facility] [id number] [place] [address] 19411- 5386 Oct, [facility] [id number] [place] [address] 19380- 9776 Oct, [facility] [id number] [place] [address] 13647- 5726 Oct, Pre-op evaluation V72.84 [facility] [address] [address]- 7721 Oct, [facility] [id number] [place] [address] 45115- 9867 Oct, [facility] [address], [place] [address]- 4436 September, [facility] [address], [place] [address] 2546 September, [facility] [id number] [address]- 1331 September, Hallux valgus (acquired) 735.0 and Other hammer toe ( acquired) 735.4 [facility] [address] [address]- 2546 Aug, [facility] [id number] [place] [address] 99500- 3355 Aug, [facility] [place] [facility] [address] [id number] [place] [address]- 0003 Jul, [facility] [place] [facility] [address] [id number] [place] [address]- 2262 Jul, [facility] [place] [facility] [address] [id number] [place] [address]- 5590 Jul, [facility] [place] [facility] [address] [id number] [place] [address]- 4306 Jul, [facility] [place] [facility] [address] [id number] [place] [address]- 4638 Jul, [facility] [place] [facility] [address] [id number] [place] [address]- 3716 Jul, [facility] [place] [facility] [address] [facility] [id number] [place] [address]- 6263 Jul, [facility] [place] [facility] [address] [id number] [place] [address]- 3270 Jul, [facility] [place] [facility] [address] [id number] [place] [address]- 0068 Jun, [facility] [place] [facility] [address] [facility] [id number] [place] [address]- 3583 Jun, [facility] [place] [facility] [address] [id number] [place] [address]- 9668 Jun, 2014 [facility] [place] [facility] [address] [id number] [place] [address]- 8724 Jun, [facility] [place] [facility] [address] [id number] [place] [address]- 2392 Jun, [facility] [place] [facility] [address] [id number] [place] [address]- 6232 Jun, [facility] [place] [facility] [address] [facility] [id number] [place] [address]- 1572 Jun, [facility] [place] [facility] [address] [id number] [place] [address]- 5746 Jun, [facility] [address] [id number] [place] [address]- 0916 Jun, [facility] [place] [facility] [address] [id number] [place] [address]- 8146 Jun, [facility] [place] [facility] [address] [id number] [place] [address]- 1180 May, [facility] [place] [facility] [address] [id number] [place] [address]- 9002 May, [facility] [place] [facility] [address] [id number] [place] [address]- 5520 May, [facility] [place] [facility] [address] [id number] [place] [address]- 5491 May, [facility] [place] [facility] [address] [id number] [place] [address]- 1145 May, [facility] [address] [id number] [place] [address]- 5172 May, [facility] [place] [facility] [address] [id number] [place] [address]- 5474 May, [facility] [place] [facility] [address] [id number] [place] [address]- 3150 May, [facility] [place] [facility] [address] [id number] [place] [address]- 2830 May, [facility] [place] [facility] [address] [id number] [place] [address]- 9535 May, [facility] [place] [facility] [address] [id number] [place] [address]- 2983 May, [facility] [place] [facility] [address] [id number] [place] [address]- 5866 May, [facility] [place] [facility] [address] [id number] [place] [address]- 7053 May, [facility] [place] [facility] [address] [id number] [place] [address]- 1914 May, [facility] [place] [facility] [address] [id number] [place] [address]- 1991 May, [facility] [place] [facility] [address] [id number] [place] [address]- 2323 May, [facility] [place] [facility] [address] [id number] [place] [address]- 8905 May, [facility] [place] [facility] [address] [id number] [place] [address]- 0750 May, [facility] [place] [facility] [address] [id number] [place] [address]- 3854 Apr, [facility] [place] [facility] [address] [id number] [place] [address]- 7450 Apr, [facility] [place] [facility] [address] [id number] [place] [address]- 5605 Apr, [facility] [place] [facility] [address] [id number] [place] [address]- 4142 Apr, [facility] [place] [facility] [address] [id number] [place] [address]- 6799 Apr, [facility] [place] [facility] [address] [id number] [place] [address]- 3917 Apr, [facility] [place] [facility] [address] [id number] [place] [address]- 6536 Apr, [facility] [place] [facility] [address] [id number] [place] [address]- 8494 Apr, [facility] [place] [facility] [address] [id number] [place] [address]- 5972 Apr, [facility] [place] [facility] [address] [id number] [place] [address]- 7276 Mar, [facility] [place] [facility] [address] [id number] [place] [address]- 4402 Mar, [facility] [place] [facility] [address] [id number] [place] [address]- 9574 Mar, [facility] [place] [facility] [address] [id number] [place] [address]- 4475 Mar, [facility] [place] [facility] [address] [id number] [place] [address]- 3758 Mar, [facility] [place] [facility] [address] [id number] [place] [address]- 0055 Feb, [facility] [place] [facility] [address] [id number] [place] [address]- 3293 Feb, [facility] [place] [facility] [address] [id number] [place] [address]- 2604 Feb, [facility] [place] [facility] [address] [id number] [place] [address]- 6382 Feb, [facility] [place] [facility] [address] [id number] [place] [address]- 5254 Feb, [facility] [place] [facility] [address] [id number] [place] [address]- 8769 Feb, [facility] [place] [facility] [address] [id number] [place] [address]- 0260 Feb, [facility] [place] [facility] [address] [id number] [place] [address]- 9073 Feb, [facility] [place] [facility] [address] [id number], [place] [address]- 3532 Feb, [facility] [place] [facility] [address] [id number] 2778 Feb, [facility] [place] [facility] [address] [id number], [place] [address]- 9128 Feb, [facility] [place] [facility] [address] [id number] 2802 Feb, [facility] [place] [facility] [address] [id number] [place] [address]- 0840 07 Feb, 2013 [facility] [place] [facility] [address] [id number] [place] [address]- 5922 Feb, [facility] [place] [facility] [address] [id number] [place] [address]- 2718 Feb, 2013 [facility] [place] [facility] [address] [id number] [place] [address]- 1178 Feb, [facility] [place] [facility] [address] [id number] [place] [address]- 3850 Jan, 2013 [facility] [place] [facility] [address] [id number] [place] [address]- 2525 23 Jan, 2013 [facility] [place] [facility] [address] [id number] [place] [address]- 2551 20 Jan, 2014 [facility] [place] [facility] [address] [id number] [place] [address]- 9656 19 Jan, 2013 [facility] [place] [facility] [address] [id number] [place] [address]- 1620 11 Jan, 2014 [facility] [place] [facility] [address] [id number] [place] [address]- 1956 Jan, [facility] [place] [facility] [address] [id number] [place] [address]- 1393 Jan, [facility] [place] [facility] [address] [id number] [place] [address]- 6579 Jan, 2013 [facility] [place] [facility] [address] [id number] [place] [address]- 4361 Dec, [facility] [place] [facility] [address] [id number] [place] [address]- 5416 Dec, [facility] [place] [facility] [address] [id number] [place] [address]- 7681 Nov, [facility] [place] [facility] [address] [id number] [place] [address]- 4234 Nov, [facility] [place] [facility] [address] [id number] [place] [address]- 0704 Nov, [facility] [place] [facility] [address] [id number] [place] [address]- 3724 Nov, [facility] [place] [facility] [address] [id number] [place] [address]- 6122 Nov, [facility] [place] [facility] [address] [id number] [place] [address]- 1886 Nov, [facility] [place] [facility] [address] [id number] [place] [address]- 0602 Nov, [facility] [place] [facility] [address] [id number] [place] [address]- 6768 Nov, [facility] [place] [facility] [address] [id number] [place] [address]- 2099 Nov, [facility] [place] [facility] [address] [id number] [place] [address]- 0076 Oct, [facility] [place] [facility] [address] [id number] [place] [address]- 2103 Oct, [facility] [place] [facility] [address] [id number] [place] [address]- 2595 Oct, [facility] [place] [facility] [address] [id number] [place] [address]- 2090 Oct, [facility] [place] [facility] [address] [id number] [place] [address]- 1104 Oct, [facility] [place] [facility] [address] [id number] [place] [address]- 4824 Oct, [facility] [place] [facility] [address] [id number] [place] [address]- 9288 September, [facility] [place] [facility] [address] [id number] [place] [address]- 6273 September, [facility] [place] [facility] [address] [id number] [place] [address]- 0343 September, [facility] [address] [id number] [place] 7319 September, [facility] [address] [id number] [place] [address]- 9426 September, [facility] [address] [id number] [place] [address]- 0139 September, [facility] [address] [id number] [place] [address]- 3827 September, [facility] [address] [id number] [place] 8305 September, [facility] [address] [id number] [place] [address]- 8457 September, [facility] [address] [id number] [place] [address]- 3794 September, [facility] [address] [id number] [place] [address]- 7813 September, [facility] [address] [id number] [place] [address]- 2745 September, [facility] [address] [id number] [place] [address]- 6316 September, [facility] [address] [id number] [place] [address]- 4376 September, [facility] [address] [id number] [place] [address]- 2117 September, [facility] [place] [facility] [address] [id number] [place] 8881 September, [facility] [place] [facility] [address] [id number] [place] 1204 September, [facility] [address] [id number] [place] [address]- 8648 September, [facility] [place] [facility] [address] [id number] [place] [address]- 6061 September, [facility] [place] [facility] [address] [id number] [place] [address]- 5885 September, [facility] [place] [facility] [address] [id number] [place] [address]- 8983 Aug, [facility] [place] [facility] [address] [id number] [place] [address]- 8449 Aug, [facility] [place] [facility] [address] [id number] [place] [address]- 1107 Aug, [facility] [place] [facility] [address] [id number] [place] [address]- 8863 Aug, [facility] [place] [facility] [address] [id number] [place] [address]- 8946 Aug, [facility] [place] [facility] [address] [id number] [place] [address]- 3234 Aug, [facility] [place] [facility] [address] [id number] [place] [address]- 3159 Aug, [facility] [place] [facility] [address] [id number] [place] [address]- 8673 Aug, [facility] [place] [facility] [address] [id number] [place] [address]- 7593 Aug, [facility] [place] [facility] [address] [id number] [place] [address]- 1009 Aug, [facility] [place] [facility] [address] [id number] [place] [address]- 8190 Aug, [facility] [place] [facility] [address] [id number] [place] [address]- 6642 Aug, [facility] [place] [facility] [address] [id number] [place] [address]- 6952 Aug, [facility] [place] [facility] [address] [id number] [place] [address]- 2514 Aug, [facility] [place] [facility] [address] [id number] [place] [address]- 3596 Aug, [facility] [place] [facility] [address] [id number] [place] [address]- 6910 Jul, [facility] [place] [facility] [address] [id number] [place] [address]- 9411 Jul, [facility] [place] [facility] [address] [id number] [place] [address]- 1413 Jul, [facility] [place] [facility] [address] [id number] [place] [address]- 4970 Jul, [facility] [place] [facility] [address] [id number] [place] [address]- 5508 Jul, [facility] [place] [facility] [address] [id number] [place] [address]- 6379 Jul, [facility] [place] [facility] [address] [id number] [place] [address]- 2659 Jul, [facility] [place] [facility] [address] [id number] [place] [address]- 4260 Jul, [facility] [place] [facility] [address] [id number] [place] [address]- 2342 Jul, [facility] [place] [facility] [address] [id number] [place] [address] Jul, [facility] [place] [facility] [address] [id number] [place] [address] Jul, [facility] [place] [facility] [address] [id number] [place] [address] Jul, [facility] [place] [facility] [address] [id number] [place] [address] Jul, [facility] [place] [facility] [address] [id number] [place] [address] Jul, [facility] [place] [facility] [address] [id number] [place] [address] Jul, [facility] [place] [facility] [address] [id number] [place] [address] Jun, [facility] [place] [facility] [address] [id number] [place] [address] Jun, [facility] [place] [facility] [address] [id number] [place] [address] Jun, [facility] [place] [facility] [address] [id number] [place] [address] Jun, [facility] [place] [facility] [address] [id number] [place] [address] Jun, [facility] [place] [facility] [address] [id number] [place] [address] Jun, [facility] [place] [facility] [address] [id number] [place] [address] May, [facility] [place] [facility] [address] [id number] [place] [address] May, [facility] [place] [facility] [address] [id number] [place] [address] May, [facility] [place] [facility] [address] [id number] [place] [address] May, [facility] [place] [facility] [address] [id number] [place] [address] May, [facility] [place] [facility] [address] [id number] [place] [address]- [address] May, [facility] [place] [facility] [address] [id number] [place] [address]- [address] May, [facility] [place] [facility] [address] [id number] [place] [address] May, [facility] [place] [facility] [address] [id number] [place] [address] May, [facility] [address] [id number] [place] [address] May, [facility] [place] [facility] [address] [id number] [place] [address]- [address] May, [facility] [place] [facility] [address] [id number] [place] [address]- [address] May, [facility] [place] [facility] [address] [id number] [place] [address] May, [facility] [place] [facility] [address] [id number] [place] [address]446 May, [facility] [place] [facility] [address] [id number] [place] [address] May, [facility] [place] [facility] [address] [id number] [place] [address] Apr, [facility] [place] [facility] [address] [id number] [place] [address] Apr, [facility] [place] [facility] [address] [id number] [place] [address]- [address] Apr, [facility] [place] [facility] [address] [id number] [place] [address]- [address] Apr, [facility] [place] [facility] [address] [id number] [place] [address]- [address]42 Apr, [facility] [place] [facility] [address] [id number] [place] [address] Apr, [facility] [place] [facility] [address] [id number] [place] [address] Apr, [facility] [place] [facility] [address] [id number] [place] [address] Apr, [facility] [place] [facility] [address] [id number] [place] [address] Apr, [facility] [place] [facility] [address] [id number] [place] [address]- [address]199 Apr, [facility] [address] [id number] [place] [address] Mar, [facility] [address] [id number] [place] [address] Mar, [facility] [address] [id number] [place] [address]- [address] Mar, [facility] [address] [id number] [place] [address]- [address] Mar, [facility] [address] [id number] [place] [address] Mar, [facility] [address] [id number] [place] [address]- [address] Mar, [facility] [address] [id number] [place] [address] Mar, [facility] [address] [id number] [place] [address]- [address] Mar, [facility] [address] [id number] [place] [address]- [address] Mar, [facility] [address] [id number] [place] [address]- [address] Mar, [facility] [address] [id number] [place] [address]- [address] Mar, [facility] [address] [id number] [place] [address]- [address] Mar, [facility] [place] [facility] [address] [id number] [place] [address]- [address]87 Mar, [facility] [place] [facility] [address] [id number] [place] [address]- 120[address] Mar, [facility] [address] [id number] [place] [address]- [address]42 Mar, [facility] [place] [facility] [address] [id number] [place] [address]- [address] 18 Mar, 2013 [facility] [place] [facility] [address] [id number] [place] [address]- [address] Mar, [facility] [place] [facility] [address] [id number] [place] [address]- [address]646 Mar, [facility] [place] [facility] [address] [id number] [place] [address]- [address] Mar, [facility] [place] [facility] [address] [id number] [place] [address]- [address] Mar, [facility] [place] [facility] [address] [id number] [place] [address]- [address] Mar, [facility] [place] [facility] [address] [id number] [place] [address]- [address]041 Mar, [facility] [place] [facility] [address] [id number], [place] [address] Mar, [facility] [place] [facility] [address] [id number], [place] [address] Feb, [facility] [place] [facility] [address] [id number], [place] [address] Feb, [facility] [place] [facility] [address] [id number], [place] [address]- [address] Feb, [facility] [place] [facility] [address] [id number], [place] [address]- [address] 16 Feb, 2013 [facility] [place] [facility] [address] [id number], [place] [address]- [address] 15 Feb, 2013 [facility] [facility] [address] [id number], [place] [address] Feb, [facility] [address] [facility] [id number], [place] [address] 89[address] Feb, [facility] [place] [address] [id number], [place] [address] Feb, [facility] [address] [id number] [place] [address] Feb, [facility] [place] [facility] [address] [id number] [place] [address]- 2835 Feb, [facility] [place] [facility] [address] [id number] [place] [address]39 30 Jan, 2013 [facility] [place] [facility] [address] [id number] [place] [address]- 2611 26 Jan, 2013 [facility] [place] [facility] [address] [id number] [place] [address]- 9468 24 Jan, 2013 [facility] [place] [facility] [address] [id number] [place] [address]- 0278 23 Jan, 2013 [facility] [place] [facility] [address] [id number] [place] [address]- 8992 17 Jan, 2013 [facility] [place] [facility] [address] [id number] [place] [address]- 3165 Dec, [facility] [place] [facility] [address] [id number] [place] [address]- 8779 Dec, [facility] [place] [facility] [address] [id number] [place] [address]- 9675 Dec, [facility] [place] [facility] [address] [id number] [place] [address]- 5342 15 Dec, 2012 [facility] [place] [facility] [address] [id number] [place] [address]- 4349 14 Dec, 2012 [facility] [place] [facility] [address] [id number] [place] [address]- 4848 Dec, [facility] [place] [facility] [address] [id number] [place] [address]- 6007 Dec, [facility] [place] [facility] [address] [id number] [place] [address]- 1999 Nov, [facility] [place] [facility] [address] [id number] [place] [address]- 2546 16 Nov, 2012 [facility] [address] [id number] [place] [address]- 9576 15 Nov, 2012 [facility] [place] [facility] [address] [id number] [place] [address]- 2546 05 Nov, 2012 [facility] [address] [id number] [place] [address]- 2546 Nov, [facility] [place] [facility] [address] [id number] [place] [address]- 1206 Oct, [facility] [address] [id number] [place] [address]- 7696 Oct, [facility] [address] [id number] [place] [address]- 2546 Oct, [facility] [address] [id number] [place] [address]- 5376 September, [facility] [address] [id number] [place] [address]- 8120 September, [facility] [address] [id number] [place] [address]- 7936 September, [facility] [address] [id number] [place] [address]- 7656 September, [facility] [address] [id number] [place] [address]- 9706 September, [facility] [address] [id number] [place] [address]- 2546 September, [facility] [address] [id number] [place] [address]- 2546 September, [facility] [address] [id number] [place] [address]- 2546 Aug, [facility] [address] [id number] [place] [address]- 2959 23 Aug, 2012 [facility] [place] [facility] [address] [id number] [place] [address]- 1861 11 Aug, 2012 [facility] [place] [facility] [address] [id number] [place] [address]- 2220 29 Jul, 2012 [facility] [place] [facility] [address] [id number] [place] [address]- 1729 27 Jul, 2012 [facility] [place] [facility] [address] [id number] [place] [address]- 3452 26 Jul, 2012 [facility] [facility] [address] [id number] [place] [address]- 8189 20 Jul, 2012 [facility] [place] [facility] [address] [id number] [place] [address]- 7745 18 Jul, 2012 [facility] [address] [facility] [id number] [place] [address]- 1903 18 Jul, 2012 [facility] [address] [id number] [place] [address]- 9917 13 Jul, 2012 [facility] [address] [id number] [place] [address]- 2012 28 Jun, 2012 [facility] [address] [facility] [id number] [place] [address]- 6995 27 Jun, 2012 [facility] [address] [facility] [id number] [place] [address]- 9109 22 Jun, 2012 [facility] [place] [facility] [address] [id number] [place] [address]- 9443 20 Jun, 2012 [facility] [address] [id number] [place] [address]- 2272 15 Jun, 2012 [facility] [address] [id number] [place] [address]- 6230 15 Jun, 2012 [facility] [address] [facility] [id number] [place] [address]- 6441 13 Jun, 2012 [facility] [address] [id number] [place] [address]- 4566 Jun, [facility] [address] [id number] [place] [address]- 0396 Jun, [facility] [address] [id number] [place] [address]- 2546 Jun, [facility] [address] [id number] [place] [address]- 3806 May, [facility] [facility] [address] [id number] [place] [address] 2547 May, [facility] [address] [id number] [place] [address]- 8976 May, [facility] [address] [id number] [place] [address]- 2242 May, [facility] [address] [id number] [place] [address]- 2117 May, [facility] [address] [id number] [place] [address]- 0234 May, [facility] [address] [id number] [place] [address]- 0532 31 Apr, 2012 [facility] [address] [id number] [place] [address] 2546 31 Apr, 2012 [facility] [address] [id number] [place] [address] 2546 Apr, [facility] [address] [id number] [place] [address] 254 28 Apr, 2012 [facility] [address] [id number] [place] [address] 2546 26 Apr, 2012 [facility] [address] [id number] [place] [address]- 2546 20 Apr, 2012 [facility] [address] [id number] [place] [address]- 4397 Apr, [facility] [address] [id number] [place] [address]- 7654 Mar, [facility] [address] [id number] [place] [address]- 1110 Mar, [facility] [address] [facility] [id number] [place] [address]- 2038 Mar, [facility] [address] [id number] [place] [address]- 0049 Mar, [facility] [address] [id number] [place] [address]- 6899 Mar, [facility] [address] [id number], [place] [address]- 4078 Mar, [facility] [address] [id number] [place] [address]- 2145 Mar, [facility] [address] [id number], [place] [address]- 8986 Mar, [facility] [address] [id number], [place] [address]- 1158 Mar, [facility] [address] [id number], [place] [address]- 5222 Mar, [facility] [address] [id number], [place] [address]- 1878 Mar, [facility] [address] [id number], [place] [address]- 3624 Mar, [facility] [address] [id number], [place] [address]- 4864 Mar, [facility] [address] [facility] [id number], [place] [address]- 8609 Mar, [facility] [address] [facility] [id number], [place] [address]- 7439 Mar, [facility] [address] [id number] [place] [address]- 1871 Mar, [facility] [address] [id number] [place] [address]- 9531 Mar, [facility] [address] [id number] [place] [address]- 1146 Feb, [facility] [address] [id number] [place] [address]- 3676 Feb, 2011 [facility] [address] [id number] [place] [address]- 1677 Feb, [facility] [address] [id number] [place] [address]- 3741 Feb, [facility] [address] [id number] [place] [address]- 3255 Feb, [facility] [address] [id number] [place] [address]- 6051 Feb, [facility] [address] [id number] [place] [address]- 7636 Feb, [facility] [address] [id number] [place] [address]- 9872 Feb, [facility] [address] [facility] [id number] [place] [address]- 7262 Feb, [facility] [address] [id number] [place] [address]- 0777 Feb, [facility] [address] [id number] [place] [address]- 1989 Feb, [facility] [address] [id number] [place] [address]- 8660 27 Jan, 2011 [facility] [address] [id number] [place] [address]- 2902 25 Jan, 2012 [facility] [address] [id number] [place] [address]- 7662 13 Jan, 2012 [facility] [address] [id number] [place] [address]- 9094 12 Jan, 2012 [facility] [address] [id number] [place] [address]- 7849 Jan, [facility] [address] [id number] [place] [address]- 1676 Dec, [facility] [address] [id number] [place] [address]- 8253 Dec, [facility] [place] [address] [id number] [place] [address]- 5110 Dec, [facility] [facility] [address] [id number] [place] [address]- 5908 Dec, [facility] [address] [id number] [place] [address]- 6274 Dec, [facility] [place] [facility] [address] [id number] [place] [address]- 8831 Dec, [facility] [place] [facility] [address] [id number] [place] [address]- 4372 Dec, [facility] [facility] [address] [id number] [place] [address]- 8431 Dec, [facility] [address] [id number] [place] [address]- 5507 Nov, [facility] [place] [facility] [address] [id number] [place] [address]- 2115 Nov, [facility] [place] [facility] [address] [id number] [place] [address]- 0768 Nov, [facility] [place] [facility] [address] [id number] [place] [address]- 3236 Nov, [facility] [place] [facility] [address] [id number] [place] [address]- 3948 Nov, [facility] [place] [facility] [address] [id number] [place] [address]- 3568 Oct, [facility] [address] [id number] [place]78 Oct, [facility] [place] [facility] [address] [id number] [place] [address]- 8198 September, [facility] [address] [id number] [place] [address]- 7306 September, [facility] [place] [facility] [address] [id number] [place] [address]- 1711 September, [facility] [address] [id number] [place] [address]- 6455 September, [facility] [place] [facility] [address] [id number] [place] [address]- 0203 September, [facility] [address] [id number] [place] [address]- 8477 September, [facility] [address] [id number] [place] [address]- 8230 September, [facility] [address] [id number] [place] [address]- 6804 September, [facility] [address] [id number] [place] [address]- 7064 September, [facility] [address] [id number] [place] [address]- 8130 September, [facility] [address] [id number] [place] [address]- 8883 September, [facility] [place] [facility] [address] [id number] [place] [address]- 5166 September, [facility] [address] [id number] [place] [address]- 8413 September, [facility] [address] [id number] [place] [address]- 7951 September, [facility] [address] [id number] [place] [address]- 3052 24 Aug, 2011 [facility] [address] [id number] [place] [address]- 2306 20 Aug, 2011 [facility] [address] [id number] [place] [address]- 4966 13 Aug, 2011 [facility] [address] [id number] [place] [address]- 1306 11 Aug, 2011 [facility] [address] [id number] [place] [address]- 3740 23 Jul, 2011 [facility] [address] [id number] [place] [address]- 2876 13 Jul, 2011 [facility] [address] [id number] [place] [address]- 7303 13 Jul, 2011 [facility] [address] [id number] [place] [address]- 1436 28 Jun, [address] [facility] [address] [id number] [id number] 26 Jun, 2011 [facility] [address] [id number] [place] [address]- 8911 13 Jun, 2011 [facility] [address] [id number] [place] [address]- 6067 10 Jun, 2011 [facility] [address] [id number] [place] [address]- 3446 07 Jun, 2011 [facility] [address] [id number] [place] [address]- 1716 07 Jun, 2011 [facility] [place] [facility] [address] [id number] [place] [address]- 7626 03 Jun, 2011 [facility] [place] [facility] [address] [id number] [place] [address]- 2886 02 Jun, 2011 [facility] [place] [facility] [address] [id number] [place] [address]- 1298 31 May, 2011 [facility] [address] [id number] [place] [address]- 5524 30 May, 2011 [facility] [address] [id number] [place] [address]- 7667 May, [facility] [address] [id number] [place] [address]- 8234 May, [facility] [address] [id number] [place] [address]- 9494 May, [facility] [address] [id number] [place] [address]- 6854 May, [facility] [address] [id number] [place] [address]- 5378 May, [facility] [address] [id number] [place] [address]- 0826 May, [facility] [place] [facility] [address] [id number] [place] [address]- 3959 May, [facility] [address] [id number] [place] [address]- 4712 May, [facility] [place] [facility] [address] [id number] [place] [address]- 4348 May, [facility] [address] [id number], [place] [address]- 1389 May, [facility] [place] [facility] [address] [id number], [place] [address]- 6665 May, [facility] [place] [facility] [address] [id number] [place] [address]- 1829 May, [facility] [place] [facility] [address] [id number] [place] [address]- 3622 30 Apr, 2011 [facility] [place] [facility] [address] [id number] [place] [address]- 8108 16 Apr, 2011 [facility] [place] [facility] [address] [id number] [place] [address]- 6221 05 Apr, 2011 [facility] [place] [facility] [address] [id number] [place] [address]- 0846 17 Mar, 2011 [facility] [place] [facility] [address] [id number] [place] [address] 2546 Mar, [facility] [place] [facility] [address] [id number] [place] [address]- 1696 31 Feb, 2011 [facility] [place] [facility] [address] [id number] [place] [address] 2546 26 Feb, 2011 [facility] [place] [facility] [address] [id number] [place] [address]- 4522 Feb, [facility] [place] [facility] [address] [id number] [place] [address]- 3312 20 Feb, 2011 [facility] [place] [facility] [address] [id number] [place] [address]- 0212 13 Feb, 2011 [facility] [place] [facility] [address] [id number] [place] [address]- 0061 28 Apr, 2010 [facility] [place] [facility] [address] [id number] [place] [address] 2546 22 Apr, 2010 [facility] [place] [facility] [address] [facility] [id number] [place] [address] 2547 16 Apr, 2010 [facility] [place] [facility] [address] [id number] [place] [address] 2546 15 Apr, 2010 [facility] [place] [facility] [address] [id number] [place] [address] 2546 15 Apr, 2010 [facility] [place] [facility] [address] [id number] [place] [address] 2546 Apr, [facility] [place] [facility] [address] [id number] [place] [address] 2546 24 Mar, 2010 [facility] [place] [facility] [address] [id number] [place] [address] 2543 17 Mar, 2010 [facility] [id number], [place] [address]- 0605 17 Mar, 2010 [facility] [id number], [place] [address]- 2403 28 Feb, 2010 [facility] [id number], [place] [address]- 4221 Feb, [facility] [id number] [place] [address]- 7119 Feb, [facility] [id number], [place] [address]- 2742 Feb, [facility] [id number] [place] [address] 68[address]- 9964 Dec, [facility] [id number], [place] [address]- 3182 Dec, [facility] [id number] [place] [address]- 7434 Oct, [facility] [id number], [place] [address]- 9516 Mar, [facility] [id number], [place] [address]- 5300 Mar, [facility] [id number], [place] [address]- 9291 September, IMMUNIZATIONS No Known Immunizations SOCIAL HISTORY Never Assessed REASON FOR VISIT EMR-[facility] PLAN OF CARE VITAL [...]
--- OUTSIDE RECORDS SUMMARY | 2018-09-19 09:08 | XMS REPORT ---
Author Author Migration, Doctor Organization [facility] Address Unknown Phone Unavailable Care Team Providers Care Financial Investment Manager Name Role Phone Migration, Doctor Unavailable Unavailable PROBLEMS Type Condition ICD9-CM Code FMW46-UT Code Onset Dates Condition Status SNOMED Code Problem Hypokalemia E87.6 Active 174136227 Problem Generalized anxiety disorder F41.1 Active 38990653 Problem Pain in right knee M25.561 Active 85665103 Problem Right low back pain, with sciatica presence unspecified M54.5 Active 644199013 Problem Right foot pain M79.671 Active 30397396 Problem UTI symptoms R39.9 Active 50823844 Problem Essential hypertension I10 Active 82381448 Problem Gastroesophageal reflux disease without esophagitis K21.9 Active 850437527 Problem Weight decrease R63.4 Active 084798072 Problem Depression, unspecified depression type F32.9 Active 06151572 Problem Right upper quadrant abdominal pain R10.11 Active 142930940 Problem Tobacco abuse Z72.0 Active 16327334 Problem Insomnia, unspecified type G47.00 Active 218920867 Problem Weight loss R63.4 Active 913404372 Problem Post-traumatic stress disorder, chronic F43.12 Active 84671981 Problem Pulmonary emphysema, unspecified emphysema type J43.9 Active 94058508 Problem Neuropathy G62.9 Active 564909497 Problem Anxiety F41.9 Active 42661744 Problem Other emphysema J43.8 Active 99643338 Problem Other chronic pain G89.29 Active 71736631 Problem Chronic pain G89.29 Active 18656488 Problem Opioid use disorder, moderate, dependence F11.20 Active 79401564 Problem Back pain M54.9 Active 770740531 Problem Bone pain M89.8X9 Active 36906967 Problem Panic attacks F41.0 Active 649424726 Problem Kidney stones N20.0 Active 46505190 Problem Renal calculus, right N20.0 Active 91797005 Problem Generalized abdominal pain R10.84 Active 299549033 ALLERGIES No Information ENCOUNTERS Encounter Location Date Diagnosis [facility] [id number] [address] Feb, [facility] [id number] [place] [address] 60463- 3900 Dec, [facility] [id number] [place] [address] 89492- 2317 Dec, [facility] [id number] [place] [address] 01641- 2114 Dec, Medicare welcome exam Z00.00 [facility] [id number] [place] [address] 96092- 1216 17 Nov, 2017 Opioid use disorder, moderate, dependence F11.20 [facility] [id number] [place] [address] 81488- 4097 16 Nov, 2017 Pelvic pain R10.2 ; Acute pyelonephritis N10 and Essential hypertension I10 [facility] [id number] [place] [address] 84836- 2192 28 Oct, 2017 Medicare welcome exam Z00.00 [facility] [id number] [place] [address] 05917- 9200 Oct, Gross hematuria R31.0 ; Urinary tract infection without hematuria, site unspecified N39.0 and Weakness R53.1 [facility] [id number] [place] [address] 62438- 2694 Oct, [facility] [id number] [place] [address] 93700- 4305 Oct, [facility] [id number] [place] [address] 72658- 3895 Oct, Medicare welcome exam Z00.00 [facility] [id number] [place] [address] 70654- 4708 September, Back pain M54.9 and Right anterior knee pain M25.561 [facility] [id number] [place] [address] 91881- 1936 September, [facility] [address] [address] 3165 September, [facility] [id number] [place] [address] 44930- 8708 September, Essential hypertension I10 [facility] [id number] [place] [address] 46033- 4921 September, [facility] [id number] [place] [address] 26139- 8878 September, RLQ abdominal pain R10.31 ; Low back pain M54.5 and Other chronic pain G89.29 [facility] [id number] [place] [address] 05548- 8066 Aug, Medicare welcome exam Z00.00 [facility] [id number] [place] [address] 89827- 3614 Aug, [facility] [id number] [place] [address] 16546- 8251 Aug, Acute pyelonephritis N10 and Medicare welcome exam Z00.00 [facility] [id number] [place] [address] 39364 -0354 Aug, Dysuria R30.0 and Acute pyelonephritis N10 [facility] [address], [place] [address] 6049 Aug, [facility] [id number] [place] [address] 73917- 1601 Aug, [facility] [id number] [place] [address] 61627- 5870 Aug, [facility] [id number] [place] [address] 49172- 2753 Aug, [facility] [address], [place] [address]- 7641 Jul, [facility] [id number] [place] [address] 96403- 8108 Jul, Renal calculus, right N20.0 and Medicare welcome exam Z00.00 [facility] [id number] [place] [address] 81868 -6962 Jul, Dysuria R30.0 and Renal calculus, right N20.0 [facility] [id number] [place] [address] 35800- 0087 Jul, Medicare welcome exam Z00.00 [facility] [id number] [place] [address] 73109- 6029 Jun, Gastroesophageal reflux disease without esophagitis K21.9 and Generalized abdominal pain R10.84 [facility] [id number] [place] [address] 03009- 9976 Jun, Medicare welcome exam Z00.00 [facility] [id number] [place] [address] 52420- 6613 Jun, [facility] [id number] [place] [address] 07407- 8721 Jun, Medicare welcome exam Z00.00 and Encounter for screening mammogram for malignant neoplasm of breast Z12.31 [facility] [id number] [place] [address] 54839- 9932 Jun, Chronic pain G89.29 [facility] [id number] [place] [address] 44110- 8117 May, [facility] [id number] [place] [address] 89827- 7845 May, Pelvic pain R10.2 [facility] [id number] [place] [address] 32187- 7337 May, Pelvic pain R10.2 [facility] [id number] [place] [address] 61684 -0449 May, Renal calculus, right N20.0 [facility] [id number] [place] [address] 60838- 5605 May, Hematuria, unspecified type R31.9 and Nephrolithiasis N20.0 [facility] [id number] [place] [address] 81682 -6703 May, Dysuria R30.0 and Nephrolithiasis N20.0 [facility] [id number] [place] [address] 82881- 5699 May, [facility] [id number] [place] [address] 11038 -0108 May, Abdominal pain R10.9 and Kidney stone N20.0 [facility] [id number] [place] [address] 78541- 9141 May, [facility] [id number] [place] [address] 91993- 5010 May, Chronic pain G89.29 and Panic attacks F41.0 [facility] [id number] [place] [address] 10271- 3394 May, Urinary tract infection without hematuria, site unspecified N39.0 [facility] [id number] [place] [address] 21568- 4682 Apr, Right lower quadrant abdominal pain R10.31 and Abnormal serum lipase level R74.8 [facility] [id number] [place] [address] 60751- 7521 Apr, Recurrent urinary tract infection N39.0 [facility] [id number] [place] [address] 95660- 9799 Apr, UTI symptoms R39.9 ; Recurrent urinary tract infection N39.0 and Pelvic pain R10.2 [facility] [id number] [place] [address] 06658- 5427 Apr, Chronic pain G89.29 and Panic attacks F41.0 [facility] [id number] [place] [address] 88505- 9397 Apr, Dysuria R30.0 [facility] [id number] [place] [address] 66377- 7945 Apr, [facility] [id number] [place] [address] 17265- 0785 Apr, Dysuria R30.0 and Urinary tract infection without hematuria , site unspecified N39.0 [facility] [id number] [place] [address] 99617- 5284 Mar, UTI symptoms R39.9 [facility] [id number] [place] [address] 41211- 0667 Mar, [facility] [id number] [place] [address] 23553- 8085 Mar, Panic attacks F41.0 and Chronic pain G89.29 [facility] [address] 18365- 2961 Mar, [facility] [id number] [place] [address] 43713- 8059 Mar, Dysuria R30.0 [facility] [id number] [place] [address] 82468- 6338 Mar, Dysuria R30.0 [facility] [id number] [place] [address] 17769- 4263 Feb, Chronic pain G89.29 ; Shortness of breath R06.02 ; Weight loss R63.4 ; Encounter for immunization Z23 ; Bone pain M89.8X9 ; Right anterior knee pain M25.561 and Cough R05 [facility] [id number] [place] [address] 55788- 8896 Feb, Shortness of breath R06.02 [facility] [id number] [place] [address] 18201- 3137 Feb, [facility] [id number] [place] [address] 88999- 1529 Feb, Panic attacks F41.0 and Chronic pain G89.29 [place] [facility] [address] 37269- 4589 Feb, [facility] [address] 91803- 1727 04 Feb, 2017 Panic attacks F41.0 ; Shortness of breath R06.02 and Encounter for immunization Z23 [facility] [address] 56559- 6649 Jan, [facility] [address] 61322- 8268 15 Jan, 2017 Anxiety F41.9 and Chronic pain G89.29 [facility] [address] 24840- 7018 Dec, Anxiety F41.9 and Chronic pain G89.29 [facility] [address] 49524- 2767 Nov, Chronic pain G89.29 [facility] [address] 54973- 9783 Nov, Anxiety F41.9 [facility] [address] 33768- 0699 Nov, Chronic pain G89.29 ; Essential hypertension I10 and Other emphysema J43.8 [facility] [id number] [place] [address] 25116- 4008 Oct, Anxiety F41.9 [facility] [address] 00594- 9667 Oct, [facility] [address] 84887- 8058 Oct, Chronic pain G89.29 [facility] [address] 94868- 7536 September, Recurrent UTI N39.0 ; Neuropathy G62.9 and Anxiety F41.9 [facility] [id number] [place] [address] 50293- 5811 September, [facility] [id number] [place] [address] 46787- 4421 September, Chronic pain G89.29 [facility] [id number] [place] [address] 57093- 2159 September, [facility] [address] 48293- 1508 Aug, Post-traumatic stress disorder, chronic F43.12 ; Chronic urinary tract infection N39.0 ; Gastroesophageal reflux disease without esophagitis K21.9 ; Chronic pain G89.29 ; Essential hypertension I10 and Tobacco abuse Z72.0 [facility] [id number] [place] [address] 88857 -4316 Aug, [facility] [address] 54495- 1620 Aug, Chronic pain G89.29 [facility] [address] 45451- 4893 Aug, Insomnia, unspecified type G47.00 [facility] [id number] [place] [address] 64345- 8830 Aug, [facility] [id number] [place] [address] 22770- 6856 Jul, Chronic pain G89.29 [facility] [id number] [place] [address] 69181- 9006 Jul, [facility] [address] 80941- 8893 Jul, [facility] [id number] [place] [address] 37872- 7868 Jul, [facility] [address] 74868- 9010 15 Jul, 2016 Recurrent UTI (urinary tract infection) N39.0 [facility] [address] [place] [address] 96027- 9082 14 Jul, 2016 [facility] [id number] [place] [address] 15969- 4603 27 Jun, 2016 Chronic pain G89.29 [facility] [id number] [place] [address] 79098- 9474 17 Jun, 2016 [facility] [id number] [place] [address] 93765- 1973 Jun, [facility] [id number] [place] [address] 89121- 6398 May, Chronic pain G89.29 [facility] [id number] [place] [address] 38423- 1370 May, Weight loss R63.4 and Shortness of breath R06.02 [facility] [id number] [place] [address] 32842- 7644 May, Chronic pain G89.29 ; Weight loss R63.4 and Tobacco abuse Z72.0 [facility] [address] [place] [address] 60908- 7316 May, [facility] [address] [place] [address] 14134- 7362 May, Hypoxia R09.02 [facility] [id number] [place] [address] 52900- 1144 May, [facility] [id number] [place] [address] 51686- 9928 May, Pulmonary emphysema, unspecified emphysema type J43.9 [facility] [id number] [place] [address] 50600 -5974 May, [facility] [id number] [place] [address] 27156- 9048 May, [facility] [id number] [place] [address] 43115- 8630 May, [facility] [address] 42591- 7429 May, Chronic pain G89.29 ; Encounter for immunization Z23 ; Right anterior knee pain M25.561 and Cough R05 [facility] [address] 19459- 3441 Apr, Chronic pain G89.29 [facility] [id number] [place] [address] 93413- 8661 Apr, [facility] [address] 30560- 1805 Apr, Generalized anxiety disorder F41.1 and Depression, unspecified depression type F32.9 [facility] [address] 88051- 9964 Apr, Chronic pain G89.29 ; Hypokalemia E87.6 and Insomnia, unspecified type G47.00 [facility] [id number] [place] [address] 45931- 8568 Apr, [facility] [id number] [place] [address] 05788- 1631 Apr, Chronic pain G89.29 [facility] [id number] [place] [address] 51340- 8412 Apr, [facility] [id number] [place] [address] 44875- 7860 Mar, [facility] [id number] [place] [address] 67001- 8365 Mar, Insomnia, unspecified type G47.00 [facility] [id number] [place] [address] 08394- 7156 Mar, Chronic pain G89.29 [facility] [id number] [place] [address] 52502- 7282 Mar, [facility] [address], [place] [address]- 4082 Feb, [facility] [address], [place] [address]- 1146 Feb, [facility] [id number] [place] [address] 88256- 2490 Feb, [facility] [id number] [place] [address] 90968- 4389 Feb, [facility] [id number] [place] [address] 76705- 9545 Feb, [facility] [id number] [place] [address] 15562- 7981 29 Jan, 2016 [facility] [id number] [place] [address] 89721- 8807 26 Jan, 2015 [facility] [address], [place] [address]- 8449 20 Jan, 2015 [facility] [id number] [place] [address] 85320- 2780 13 Jan, 2015 [facility] [address] [address]- 2978 12 Jan, 2016 [facility] [id number] [place] [address] 55465- 9407 07 Jan, 2015 Chronic pain G89.29 [facility] [address], [place] [address]- 7858 Jan, 2015 Chronic pain G89.29 and Fibromyalgia M79.7 [facility] [address], [place] [address]- 7044 Dec, Depression, unspecified depression type F32.9 and Generalized anxiety disorder 300.02 [facility] [address], [place] [address]- 7870 Dec, Dysthymia F34.1 ; Insomnia, unspecified type G47.00 and Chronic pain G89.29 [facility] [address] [facility] [id number] [place] [address] 74693- 7678 Dec, Chronic pain G89.29 [facility] [id number] [place] [address] 40562 2546 Dec, Insomnia, unspecified type G47.00 [facility] [address] [facility] [id number] [place] [address] 61767 2541 Dec, Fibromyalgia M79.7 and Chronic pain G89.29 [facility] [id number] [place] [address] 63392- 0936 Dec, [facility] [id number] [place] [address] 66201 2546 Dec, [facility] [id number] [place] [address] 43077- 7737 Dec, [facility] [id number] [place] [address] 96124 2546 Dec, [facility] [id number] [place] [address] 07951- 4267 Dec, Chronic pain G89.29 [facility] [id number] [place] [address] 00475 2545 Dec, [facility] [id number] [place] [address] 78065 2548 Dec, [facility] [id number] [place] [address] 32063 2546 Dec, [facility] [id number] [place] [address] 79438 2547 Dec, Chronic pain G89.29 and Dysthymia F34.1 [facility] [id number] [place] [address] 61345 2542 Nov, [facility] [id number] [place] [address] 02482- 6865 Nov, Hypokalemia E87.6 and Chronic pain G89.29 [place] [address] 39347- 8432 Nov, Back pain M54.9 and Pain in right knee M25.561 [place] [address] 40754- 4309 Nov, [place] [address] 27381- 3172 Nov, Chronic pain G89.29 [place] [address] 24117- 0635 Nov, Chronic pain G89.29 ; Weight loss R63.4 ; Bone pain M89.8X9 and Insomnia, unspecified type G47.00 [place] [address] 88136- 6716 Nov, Chronic pain G89.29 [place] [address] 43374- 2323 Nov, Chronic pain G89.29 [place] [address] 59651- 4719 30 Oct, 2015 Chronic pain G89.29 [facility] [id number] [place] [address] 00983- 5847 Oct, UTI symptoms R39.9 [facility] [id number] [place] [address] 41455- 6265 27 Oct, 2015 Chronic pain G89.29 [place] [address] 29251- 5156 20 Oct, 2015 Chronic pain G89.29 [place] [id number] [place] [address] 25623- 0958 13 Oct, 2015 Chronic pain G89.29 [place] [address] 97057- 4269 Oct, Right upper quadrant abdominal pain R10.11 [facility] [address] [address]- 0642 Oct, Chronic pain G89.29 [facility] [address] [address] Oct, [facility] [id number] [place] [address]4636- 0715 September, Chronic pain G89.29 [facility] [id number] [place] [address] 34238- 2415 September, Dysuria R30.0 and Urinary tract infection without hematuria , site unspecified N39.0 [facility] [id number] [place] [address] 73774- 4438 September, [facility] [address] [place] [id number] [place] [address] 12756- 9629 September, Dysuria R30.0 [facility] [id number] [place] [address] 24247- 1119 September, Chronic pain G89.29 [facility] [id number] [place] [address] 18353- 8851 September, Chronic pain G89.29 and Essential hypertension I10 [facility] [id number] [address] September, [facility] [id number] [place] [address] 95670- 6410 September, [facility] [id number] [place] [address] 65101- 5175 September, [facility] [id number] [place] [address] 64222- 6137 Aug, UTI symptoms R39.9 [facility] [id number] [address] Aug, Dysuria R30.0 [facility] [id number] [address] Aug, [facility] [address] [id number] [place] [address] 03879- 7726 Aug, [facility] [address] [place] [id number] [place] [address] 57096- 2622 Aug, [facility] [address] [place] [id number] [place] [address] 58359- 5438 Aug, Chronic pain G89.29 [facility] [address] [place] [id number] [place] [address] 44673- 3622 Aug, Dysthymia F34.1 [facility] [address] [place] [place] [id number] [place] [address] 92491- 8248 Aug, Conjunctivitis, unspecified conjunctivitis type, unspecified laterality H10.9 [facility] [address] [place] [place] [id number] [place] [address] 40773- 5728 Jul, Chronic pain G89.29 ; Back pain M54.9 ; Tobacco abuse Z72.0 and Weight decrease R63.4 [facility] [id number] [place] [address] 29052- 6912 Jul, [facility] [id number] [place] [address] 44942- 8816 Jul, [facility] [address] [place] [id number] [place] [address] 47320- 5339 24 Jul, 2015 Chronic pain G89.29 [facility] [id number] [address] Jul, [facility] [address] [place] [id number] [place] [address] 88973- 5146 Jul, [facility] [id number] [place] [address] 72512- 0294 Jul, [facility] [id number] [place] [address] 48962- 6912 17 Jul, 2015 [facility] [address] [address] 4572 17 Jul, 2015 Chronic pain G89.29 [facility] [address] [address] 3659 16 Jul, 2015 Chronic pain G89.29 [facility] [id number] [place] [address] 43968- 0203 15 Jul, 2015 [facility] [id number] [place] [address] 16154- 9942 Jul, [facility] [id number] [place] [address] 47216- 0257 Jul, [facility] [id number] [place] [address] 66533- 0695 Jul, [facility] [id number] [place] [address] 05002- 2277 Jun, [facility] [id number] [place] [address] 25834- 9983 Jun, Depression, unspecified depression type F32.9 [facility] [id number] [place] [address] 78389- 9044 Jun, Pain in right knee M25.561 [facility] [id number] [place] [address] 74455- 2811 24 Jun, 2015 Chronic pain G89.29 ; Back pain M54.9 ; Bone pain M89.8X9 and Weight loss R63.4 [facility] [id number] [place] [address] 75731- 3571 Jun, [facility] [id number] [place] [address] 98121- 5497 May, [facility] [address] [address]- 2104 May, UTI symptoms R39.9 ; Pain in right knee M25.561 ; Right low back pain, with sciatica presence unspecified M54.5 ; Right foot pain M79.671 ; Hypokalemia E87.6 and Screening, lipid Z13.220 [facility] [id number] [place] [address] 39364- 0824 May, [facility] [id number] [place] [address] 84237- 2407 May, [facility] [id number] [place] [address] 36407- 8328 Mar, [facility] [id number] [place] [address] 81267- 8009 Mar, [facility] [id number] [place] [address] 57570- 4271 Mar, Hypokalemia E87.6 [facility] [address] 75683- 4905 Mar, Pain in right leg M79.604 ; Encounter for immunization Z23 ; Pain in right knee M25.561 and Hypokalemia E87.6 [facility] [id number] [place] [address] 59117- 3841 Jan, [facility] [id number] [place] [address] 25537- 6506 Jan, [facility] [id number] [place] [address] 01847 2542 Jan, Abdominal pain, generalized 789.07 [facility] [id number] [place] [address] 20282 2542 Jan, Abdominal pain, generalized 789.07 [facility] [id number] [place] [address] 47644- 3689 Dec, [facility] [id number] [place] [address] 86226- 3867 Dec, [facility] [address] [address]- 4526 Dec, [facility] [id number] [place] [address] 54914- 3214 Nov, Hallux valgus 735.0 and Hammertoe 735.4 [facility] [address] [address]- 5196 Nov, [facility] [id number] [place] [address] 82075- 9859 Nov, Hallux valgus 735.0 and Hammer toe 735.4 [facility] [id number] [place] [address] 12499- 4346 Oct, [facility] [id number] [place] [address] 66669- 9876 Oct, [facility] [id number] [place] [address] 44697- 2823 Oct, Pre-op evaluation V72.84 [facility] [address] [address]- 2957 Oct, [facility] [id number] [place] [address] 54025- 4200 Oct, [facility] [address], [place] [address]- 7362 September, [facility] [id number], [place] [address] 2546 September, [facility] [id number] [address]- 6296 September, Hallux valgus (acquired) 735.0 and Other hammer toe ( acquired) 735.4 [facility] [address] [address]- 2546 Aug, [facility] [id number] [place] [address] 14903- 3824 Aug, [facility] [place] [facility] [address] [id number] [place] [address]- 5485 Jul, [facility] [place] [facility] [address] [id number] [place] [address]- 1424 Jul, [facility] [place] [facility] [address] [id number] [place] [address]- 5809 Jul, [facility] [place] [facility] [address] [id number] [place] [address]- 1319 Jul, [facility] [place] [facility] [address] [id number] [place] [address]- 5016 Jul, [facility] [place] [facility] [address] [id number] [place] [address]- 8975 Jul, [facility] [place] [facility] [address] [facility] [id number] [place] [address]- 0925 Jul, [facility] [place] [facility] [address] [id number] [place] [address]- 1927 Jul, [facility] [place] [facility] [address] [id number] [place] [address]- 8592 Jun, [facility] [place] [facility] [address] [facility] [id number] [place] [address]- 4084 Jun, [facility] [place] [facility] [address] [id number] [place] [address]- 0662 Jun, 2014 [facility] [place] [facility] [address] [id number] [place] [address]- 4141 Jun, [facility] [place] [facility] [address] [id number] [place] [address]- 0044 Jun, [facility] [place] [facility] [address] [id number] [place] [address]- 8482 Jun, [facility] [place] [facility] [address] [facility] [id number] [place] [address]- 0332 Jun, [facility] [place] [facility] [address] [id number] [place] [address]- 2184 Jun, [facility] [address] [id number] [place] [address]- 7043 Jun, [facility] [place] [facility] [address] [id number] [place] [address]- 9836 Jun, [facility] [place] [facility] [address] [id number] [place] [address]- 1638 May, [facility] [place] [facility] [address] [id number] [place] [address]- 7546 May, [facility] [place] [facility] [address] [id number] [place] [address]- 9489 May, [facility] [place] [facility] [address] [id number] [place] [address]- 3553 May, [facility] [place] [facility] [address] [id number] [place] [address]- 3330 May, [facility] [address] [id number] [place] [address]- 4082 May, [facility] [place] [facility] [address] [id number] [place] [address]- 7845 May, [facility] [place] [facility] [address] [id number] [place] [address]- 3090 May, [facility] [place] [facility] [address] [id number] [place] [address]- 9639 May, [facility] [place] [facility] [address] [id number] [place] [address]- 4662 May, [facility] [place] [facility] [address] [id number] [place] [address]- 0398 May, [facility] [place] [facility] [address] [id number] [place] [address]- 0776 May, [facility] [place] [facility] [address] [id number] [place] [address]- 5064 May, [facility] [place] [facility] [address] [id number] [place] [address]- 7865 May, [facility] [place] [facility] [address] [id number] [place] [address]- 3038 May, [facility] [place] [facility] [address] [id number] [place] [address]- 8368 May, [facility] [place] [facility] [address] [id number] [place] [address]- 3013 May, [facility] [place] [facility] [address] [id number] [place] [address]- 4205 May, [facility] [place] [facility] [address] [id number] [place] [address]- 1506 Apr, [facility] [place] [facility] [address] [id number] [place] [address]- 0500 Apr, [facility] [place] [facility] [address] [id number] [place] [address]- 1148 Apr, [facility] [place] [facility] [address] [id number] [place] [address]- 0557 Apr, [facility] [place] [facility] [address] [id number] [place] [address]- 1376 Apr, [facility] [place] [facility] [address] [id number] [place] [address]- 3121 Apr, [facility] [place] [facility] [address] [id number] [place] [address]- 0944 Apr, [facility] [place] [facility] [address] [id number] [place] [address]- 6777 Apr, [facility] [place] [facility] [address] [id number] [place] [address]- 2240 Apr, [facility] [place] [facility] [address] [id number] [place] [address]- 1436 Mar, [facility] [place] [facility] [address] [id number] [place] [address]- 1792 Mar, [facility] [place] [facility] [address] [id number] [place] [address]- 9968 Mar, [facility] [place] [facility] [address] [id number] [place] [address]- 3508 Mar, [facility] [place] [facility] [address] [id number] [place] [address]- 7514 Mar, [facility] [place] [facility] [address] [id number] [place] [address]- 0997 Feb, [facility] [place] [facility] [address] [id number] [place] [address]- 6256 Feb, [facility] [place] [facility] [address] [id number] [place] [address]- 1477 Feb, [facility] [place] [facility] [address] [id number] [place] [address]- 5837 Feb, [facility] [place] [facility] [address] [id number] [place] [address]- 1982 Feb, [facility] [place] [facility] [address] [id number] [place] [address]- 1151 Feb, [facility] [place] [facility] [address] [id number] [place] [address]- 5097 Feb, [facility] [place] [facility] [address] [id number] [place] [address]- 9993 Feb, [facility] [place] [facility] [address] [id number] [address]- 6729 Feb, [facility] [place] [facility] [address] [id number] 1792 Feb, [facility] [place] [facility] [address] [id number], [place] [address]- 2214 Feb, [facility] [place] [facility] [address] [id number] 3273 Feb, [facility] [place] [facility] [address] [id number] [place] [address]- 7903 07 Feb, 2013 [facility] [place] [facility] [address] [id number] [place] [address]- 1088 Feb, [facility] [place] [facility] [address] [id number] [place] [address]- 4443 Feb, 2013 [facility] [place] [facility] [address] [id number] [place] [address]- 8941 Feb, [facility] [place] [facility] [address] [id number] [place] [address]- 8183 Jan, 2013 [facility] [place] [facility] [address] [id number] [place] [address]- 8985 23 Jan, 2013 [facility] [place] [facility] [address] [id number] [place] [address]- 1567 20 Jan, 2014 [facility] [place] [facility] [address] [id number] [place] [address]- 7030 19 Jan, 2013 [facility] [place] [facility] [address] [id number] [place] [address]- 9330 11 Jan, 2014 [facility] [place] [facility] [address] [id number] [place] [address]- 6918 Jan, [facility] [place] [facility] [address] [id number] [place] [address]- 1128 Jan, [facility] [place] [facility] [address] [id number] [place] [address]- 3202 Jan, 2013 [facility] [place] [facility] [address] [id number] [place] [address]- 9618 Dec, [facility] [place] [facility] [address] [id number] [place] [address]- 6376 Dec, [facility] [place] [facility] [address] [id number] [place] [address]- 5053 Nov, [facility] [place] [facility] [address] [id number] [place] [address]- 5013 Nov, [facility] [place] [facility] [address] [id number] [place] [address]- 6851 Nov, [facility] [place] [facility] [address] [id number] [place] [address]- 2204 Nov, [facility] [place] [facility] [address] [id number] [place] [address]- 8189 Nov, [facility] [place] [facility] [address] [id number] [place] [address]- 0043 Nov, [facility] [place] [facility] [address] [id number] [place] [address]- 8724 Nov, [facility] [place] [facility] [address] [id number] [place] [address]- 1693 Nov, [facility] [place] [facility] [address] [id number] [place] [address]- 1333 Nov, [facility] [place] [facility] [address] [id number] [place] [address]- 7638 Oct, [facility] [place] [facility] [address] [id number] [place] [address]- 0107 Oct, [facility] [place] [facility] [address] [id number] [place] [address]- 5222 Oct, [facility] [place] [facility] [address] [id number] [place] [address]- 6392 Oct, [facility] [place] [facility] [address] [id number] [place] [address]- 2252 Oct, [facility] [place] [facility] [address] [id number] [place] [address]- 4891 Oct, [facility] [place] [facility] [address] [id number] [place] [address]- 1195 September, [facility] [place] [facility] [address] [id number] [place] [address]- 9587 September, [facility] [place] [facility] [address] [id number] [place] [address]- 5827 September, [facility] [address] [id number] [place] 2510 September, [facility] [address] [id number] [place] [address]- 4945 September, [facility] [address] [id number] [place] [address]- 8243 September, [facility] [address] [id number] [place] [address]- 8152 September, [facility] [address] [id number] [place] 7344 September, [facility] [address] [id number] [place] [address]- 7139 September, [facility] [address] [id number] [place] [address]- 3111 September, [facility] [address] [id number] [place] [address]- 6770 September, [facility] [address] [id number] [place] [address]- 9928 September, [facility] [address] [id number] [place] [address]- 5155 September, [facility] [address] [id number] [place] [address]- 8861 September, [facility] [address] [id number] [place] [address]- 5098 September, [facility] [place] [facility] [address] [id number] [place] 0882 September, [facility] [place] [facility] [address] [id number] [place] 9068 September, [facility] [address] [id number] [place] [address]- 7993 September, [facility] [place] [facility] [address] [id number] [place] [address]- 7778 September, [facility] [place] [facility] [address] [id number] [place] [address]- 0993 September, [facility] [place] [facility] [address] [id number] [place] [address]- 8664 Aug, [facility] [place] [facility] [address] [id number] [place] [address]- 2761 Aug, [facility] [place] [facility] [address] [id number] [place] [address]- 6772 Aug, [facility] [place] [facility] [address] [id number] [place] [address]- 9926 Aug, [facility] [place] [facility] [address] [id number] [place] [address]- 9899 Aug, [facility] [place] [facility] [address] [id number] [place] [address]- 5239 Aug, [facility] [place] [facility] [address] [id number] [place] [address]- 0490 Aug, [facility] [place] [facility] [address] [id number] [place] [address]- 6083 Aug, [facility] [place] [facility] [address] [id number] [place] [address]- 0409 Aug, [facility] [place] [facility] [address] [id number] [place] [address]- 9953 Aug, [facility] [place] [facility] [address] [id number] [place] [address]- 4236 Aug, [facility] [place] [facility] [address] [id number] [place] [address]- 7287 Aug, [facility] [place] [facility] [address] [id number] [place] [address]- 2446 Aug, [facility] [place] [facility] [address] [id number] [place] [address]- 1623 Aug, [facility] [place] [facility] [address] [id number] [place] [address]- 1645 Aug, [facility] [place] [facility] [address] [id number] [place] [address]- 6566 Jul, [facility] [place] [facility] [address] [id number] [place] [address]- 5396 Jul, [facility] [place] [facility] [address] [id number] [place] [address]- 5112 Jul, [facility] [place] [facility] [address] [id number] [place] [address]- 6282 Jul, [facility] [place] [facility] [address] [id number] [place] [address]- 4407 Jul, [facility] [place] [facility] [address] [id number] [place] [address]- 1649 Jul, [facility] [place] [facility] [address] [id number] [place] [address]- 5222 Jul, [facility] [place] [facility] [address] [id number] [place] [address]- 3119 Jul, [facility] [place] [facility] [address] [id number] [place] [address]- 1778 Jul, [facility] [place] [facility] [address] [id number] [place] [address]- 9052 Jul, [facility] [place] [facility] [address] [id number] [place] [address]- 3193 Jul, [facility] [place] [facility] [address] [id number] [place] [address]- 3440 Jul, [facility] [place] [facility] [address] [id number] [place] [address] Jul, [facility] [place] [facility] [address] [id number] [place] [address] Jul, [facility] [place] [facility] [address] [id number] [place] [address] Jul, [facility] [place] [facility] [address] [id number] [place] [address] Jun, [facility] [place] [facility] [address] [id number] [place] [address] Jun, [facility] [place] [facility] [address] [id number] [place] [address] Jun, [facility] [place] [facility] [address] [id number] [place] [address] 4984 Jun, [facility] [place] [facility] [address] [id number] [place] [address] Jun, [facility] [place] [facility] [address] [id number] [place] [address] Jun, [facility] [place] [facility] [address] [id number] [place] [address] May, [facility] [place] [facility] [address] [id number] [place] [address]96 May, [facility] [place] [facility] [address] [id number] [place] [address] May, [facility] [place] [facility] [address] [id number] [place] [address] May, [facility] [place] [facility] [address] [id number] [place] [address]- [address] May, [facility] [place] [facility] [address] [id number] [place] [address] 4658 May, [facility] [place] [facility] [address] [id number] [place] [address]- 1264 May, [facility] [place] [facility] [address] [id number] [place] [address] 86[address] May, [facility] [place] [facility] [address] [id number] [place] [address]- [address]99 May, [facility] [address] [id number] [place] [address]- 17[address] May, [facility] [place] [facility] [address] [id number] [place] [address] 3317 May, [facility] [place] [facility] [address] [id number] [place] [address]- 7467 May, [facility] [place] [facility] [address] [id number] [place] [address]- 4265 May, [facility] [place] [facility] [address] [id number] [place] [address]- 3298 May, [facility] [place] [facility] [address] [id number] [place] [address]- 3837 May, [facility] [place] [facility] [address] [id number] [place] [address] Apr, [facility] [place] [facility] [address] [id number] [place] [address] Apr, [facility] [place] [facility] [address] [id number] [place] [address] 38[address] Apr, [facility] [place] [facility] [address] [id number] [place] [address]- [address]95 Apr, [facility] [place] [facility] [address] [id number] [place] [address]- [address] Apr, [facility] [place] [facility] [address] [id number] [place] [address] 3569 Apr, [facility] [place] [facility] [address] [id number] [place] [address] 69[address] Apr, [facility] [place] [facility] [address] [id number] [place] [address]- 385[address] Apr, [facility] [place] [facility] [address] [id number] [place] [address]- 8625 Apr, [facility] [place] [facility] [address] [id number] [place] [address] Apr, [facility] [address] [id number] [place] [address] Mar, [facility] [address] [id number] [place] [address] Mar, [facility] [address] [id number] [place] [address]- 2827 Mar, [facility] [address] [id number] [place] [address]- 3714 Mar, [facility] [address] [id number] [place] [address]- [address]29 Mar, [facility] [address] [id number] [place] [address] 3714 Mar, [facility] [address] [id number] [place] [address]- 1413 Mar, [facility] [address] [id number] [place] [address]- [address]275 Mar, [facility] [address] [id number] [place] [address] Mar, [facility] [address] [id number] [place] [address] Mar, [facility] [address] [id number] [place] [address]- 4[address] Mar, [facility] [address] [id number] [place] [address]- 6784 Mar, [facility] [place] [facility] [address] [id number] [place] [address]- 7621 Mar, [facility] [place] [facility] [address] [id number] [place] [address]- 2713 Mar, [facility] [address] [id number] [place] [address]- 2007 Mar, [facility] [place] [facility] [address] [id number] [place] [address]- [address] 18 Mar, 2013 [facility] [place] [facility] [address] [id number] [place] [address] 0742 Mar, [facility] [place] [facility] [address] [id number] [place] [address]- 8[address] Mar, [facility] [place] [facility] [address] [id number] [place] [address]- 6328 Mar, [facility] [place] [facility] [address] [id number] [place] [address]- 2046 Mar, [facility] [place] [facility] [address] [id number] [place] [address]- [address]75 Mar, [facility] [place] [facility] [address] [id number] [place] [address]- 7370 Mar, [facility] [place] [facility] [address] [id number], [place] [address] Mar, [facility] [place] [facility] [address] [id number], [place] [address] Feb, [facility] [place] [facility] [address] [id number], [place] [address] Feb, [facility] [place] [facility] [address] [id number], [place] [address]- [address] Feb, [facility] [place] [facility] [address] [id number], [place] [address]- [address] 16 Feb, 2013 [facility] [place] [facility] [address] [id number], [place] [address]- [address]26 15 Feb, 2013 [facility] [place] [facility] [address] [id number], [place] [address]- [address] Feb, [facility] [place] [facility] [address] [facility] [id number], [place] [address]- 265[address] Feb, [facility] [place] [facility] [address] [id number], [place] [address]- 43[address] Feb, [facility] [address] [id number] [place] [address]- 1446 Feb, [facility] [place] [facility] [address] [id number] [place] [address]- 3690 Feb, [facility] [place] [facility] [address] [id number] [place] [address]- [address]169 30 Jan, 2013 [facility] [place] [facility] [address] [address] [id number] [place] [address] 26 Jan, 2013 [facility] [place] [facility] [address] [id number] [place] [address] 24 Jan, 2013 [facility] [place] [facility] [address] [id number] [place] [address]85 23 Jan, 2013 [facility] [place] [facility] [address] [id number] [place] [address] 1690 17 Jan, 2013 [facility] [place] [facility] [address] [id number] [place] [address] 8930 Dec, [facility] [place] [facility] [address] [id number] [place] [address]238 Dec, [facility] [place] [facility] [address] [id number] [place] [address] 8511 Dec, [facility] [place] [facility] [address] [id number] [place] [address] 6511 15 Dec, 2012 [facility] [place] [facility] [address] [id number] [place] [address] 4252 14 Dec, 2012 [facility] [place] [facility] [address] [id number] [place] [address] 6285 Dec, [facility] [place] [facility] [address] [id number] [place] [address] 8151 Dec, [facility] [place] [facility] [address] [id number] [place] [address] 8361 Nov, [facility] [place] [facility] [address] [id number] [place] [address]46 16 Nov, 2012 [facility] [address] [id number] [place] [address]- 0826 15 Nov, 2012 [facility] [place] [facility] [address] [id number] [place] [address]- 2546 05 Nov, 2012 [facility] [address] [id number] [place] [address]- 2546 Nov, [facility] [place] [facility] [address] [id number] [place] [address] 7076 Oct, [facility] [address] [id number] [place] [address] 0756 Oct, [facility] [place] [facility] [address] [id number] [place] [address] Oct, [facility] [address] [id number] [place] [address] 0946 September, [facility] [address] [id number] [place] [address] 2[address] September, [facility] [address] [id number] [place] [address]- 8256 September, [facility] [address] [id number] [place] [address]- 7746 September, [facility] [place] [facility] [address] [id number] [place] [address] 3936 September, [facility] [address] [id number] [place] [address]- 2546 September, [facility] [place] [facility] [address] [id number] [place] [address]- 2546 September, [facility] [place] [facility] [address] [id number] [place] [address]- 2546 Aug, [facility] [place] [facility] [address] [id number] [place] [address]- 9329 23 Aug, 2012 [facility] [place] [facility] [address] [id number] [place] [address]- 0627 11 Aug, 2012 [facility] [place] [facility] [address] [id number] [place] [address]- 3636 29 Jul, 2012 [facility] [place] [facility] [address] [id number] [place] [address]- 6403 27 Jul, 2012 [facility] [place] [facility] [address] [id number] [place] [address] 4810 26 Jul, 2012 [facility] [place] [facility] [address] [id number] [place] [address]- 9742 20 Jul, 2012 [facility] [place] [facility] [address] [id number] [place] [address]- 7210 18 Jul, 2012 [facility] [place] [facility] [address] [facility] [id number] [place] [address]- 5419 18 Jul, 2012 [facility] [place] [facility] [address] [id number] [place] [address]- 3175 13 Jul, 2012 [facility] [place] [facility] [address] [id number] [place] [address]- 2461 28 Jun, 2012 [facility] [place] [facility] [address] [facility] [id number] [place] [address]- 4659 27 Jun, 2012 [facility] [place] [facility] [address] [facility] [id number] [place] [address]- 5288 22 Jun, 2012 [facility] [place] [facility] [address] [id number] [place] [address]- 3178 20 Jun, 2012 [facility] [place] [facility] [address] [id number] [place] [address]- 5765 15 Jun, 2012 [facility] [place] [facility] [address] [id number] [place] [address]- 6395 15 Jun, 2012 [facility] [place] [facility] [address] [facility] [id number] [place] [address]- 1124 13 Jun, 2012 [facility] [place] [facility] [address] [id number] [place] [address]- 5116 Jun, [facility] [address] [id number] [place] [address]- 3696 Jun, [facility] [place] [facility] [address] [id number] [place] [address]- 2546 Jun, [facility] [address] [id number] [place] [address]- 0356 May, [facility] [place] [facility] [address] [id number] [place] [address] 2549 May, [facility] [address] [id number] [place] [address]- 7406 May, [facility] [address] [id number] [place] [address]- 6939 May, [facility] [address] [id number] [place] [address]- 7607 May, [facility] [address] [id number] [place] [address]- 5448 May, [facility] [address] [id number] [place] [address]- 4860 31 Apr, 2012 [facility] [address] [id number] [place] [address] 2546 31 Apr, 2012 [facility] [address] [id number] [place] [address] 2546 Apr, [facility] [place] [facility] [address] [id number] [place] [address] 2549 28 Apr, 2012 [facility] [place] [facility] [address] [id number] [place] [address] 2546 26 Apr, 2012 [facility] [place] [facility] [address] [id number] [place] [address]- 2546 20 Apr, 2012 [facility] [place] [facility] [address] [id number] [place] [address]- 8165 Apr, [facility] [place] [facility] [address] [id number] [place] [address]- 7972 Mar, [facility] [place] [facility] [address] [id number] [place] [address]- 7009 Mar, [facility] [place] [facility] [address] [facility] [id number] [place] [address]- 9838 Mar, [facility] [place] [facility] [address] [id number] [place] [address]- 0831 Mar, [facility] [place] [facility] [address] [id number] [place] [address]- 0019 Mar, [facility] [place] [facility] [address] [id number], [place] [address]- 3495 Mar, [facility] [place] [facility] [address] [id number] [place] [address]- 7241 Mar, [facility] [place] [facility] [address] [id number], [place] [address]- 4904 Mar, [facility] [place] [facility] [address] [id number], [place] [address]- 6014 Mar, [facility] [place] [facility] [address] [id number], [place] [address]- 0344 Mar, [facility] [place] [facility] [address] [id number], [place] [address]- 9704 Mar, [facility] [place] [facility] [address] [id number], [place] [address]- 2739 Mar, [facility] [place] [facility] [address] [id number], [place] [address]- 4001 Mar, [facility] [place] [facility] [address] [facility] [id number], [place] [address]- 0662 Mar, [facility] [place] [facility] [address] [facility] [id number], [place] [address]- 5904 Mar, [facility] [place] [facility] [address] [id number] [place] [address]- 1476 Mar, [facility] [place] [facility] [address] [id number] [place] [address]- 9406 Mar, [facility] [place] [facility] [address] [id number] [place] [address]- 7803 Feb, [facility] [place] [facility] [address] [id number] [place] [address]- 1297 Feb, 2011 [facility] [place] [facility] [address] [id number] [place] [address]- 0333 Feb, [facility] [place] [facility] [address] [id number] [place] [address]- 1287 Feb, [facility] [place] [facility] [address] [id number] [place] [address]- 2563 Feb, [facility] [place] [facility] [address] [id number] [place] [address]- 9595 Feb, [facility] [place] [facility] [address] [id number] [place] [address]- 5873 Feb, [facility] [place] [facility] [address] [id number] [place] [address]- 6541 Feb, [facility] [place] [facility] [address] [facility] [id number] [place] [address]- 1284 Feb, [facility] [place] [facility] [address] [id number] [place] [address]- 9750 Feb, [facility] [place] [facility] [address] [id number] [place] [address]- 2973 Feb, [facility] [place] [facility] [address] [id number] [place] [address]- 0089 27 Jan, 2011 [facility] [place] [facility] [address] [id number] [place] [address]- 9564 25 Jan, 2012 [facility] [place] [facility] [address] [id number] [place] [address]- 0087 13 Jan, 2012 [facility] [place] [facility] [address] [id number] [place] [address]- 7024 12 Jan, 2012 [facility] [place] [facility] [address] [id number] [place] [address]- 9211 Jan, [facility] [place] [facility] [address] [id number] [place] [address]- 6937 Dec, [facility] [place] [facility] [address] [id number] [place] [address]- 7639 Dec, [facility] [place] [facility] [address] [id number] [place] [address]- 3748 Dec, [facility] [place] [facility] [address] [id number] [place] [address]- 6266 Dec, [facility] [place] [facility] [address] [id number] [place] [address]- 3728 Dec, [facility] [place] [facility] [address] [id number] [place] [address]- 0216 Dec, [facility] [place] [facility] [address] [id number] [place] [address]- 3613 Dec, [facility] [place] [facility] [address] [id number] [place] [address]- 3775 Dec, [facility] [place] [facility] [address] [id number] [place] [address]- 7482 Nov, [facility] [place] [facility] [address] [id number] [place] [address]- 2660 Nov, [facility] [place] [facility] [address] [id number] [place] [address]- 4425 Nov, [facility] [place] [facility] [address] [id number] [place] [address]- 1196 Nov, [facility] [place] [facility] [address] [id number] [place] [address]- 2053 Nov, [facility] [place] [facility] [address] [id number] [place] [address]- 3232 Oct, [facility] [address] [id number] [place] [address] Oct, [facility] [place] [facility] [address] [id number] [place] [address]- 0162 September, [facility] [address] [id number] [place] [address]- 0696 September, [facility] [place] [facility] [address] [id number] [place] [address]- 7803 September, [facility] [address] [id number] [place] [address]- 3037 September, [facility] [place] [facility] [address] [id number] [place] [address]- 9343 September, [facility] [address] [id number] [place] [address]- 5343 September, [facility] [place] [facility] [address] [id number] [place] [address]- 8882 September, [facility] [place] [facility] [address] [id number] [place] [address]- 0252 September, [facility] [place] [facility] [address] [id number] [place] [address]- 6498 September, [facility] [place] [facility] [address] [id number] [place] [address]- 1673 September, [facility] [place] [facility] [address] [id number] [place] [address]- 3639 September, [facility] [place] [facility] [address] [id number] [place] [address]- 3182 September, [facility] [place] [facility] [address] [id number] [place] [address]- 5678 September, [facility] [place] [facility] [address] [id number] [place] [address]- 3946 September, [facility] [place] [facility] [address] [id number] [place] [address]- 2561 24 Aug, 2011 [facility] [address] [id number] [place] [address]- 4314 20 Aug, 2011 [facility] [address] [id number] [place] [address]- 9076 13 Aug, 2011 [facility] [address] [id number] [place] [address]- 2513 11 Aug, 2011 [facility] [address] [id number] [place] [address]- 7077 23 Jul, 2011 [facility] [address] [id number] [place] [address]- 9427 13 Jul, 2011 [facility] [address] [id number] [place] [address]- 5977 13 Jul, 2011 [facility] [address] [id number] [place] [address]- 1897 28 Jun, [address] [facility] [address] [id number] [id number] 26 Jun, 2011 [facility] [address] [id number] [place] [address]- 0180 13 Jun, 2011 [facility] [address] [id number] [place] [address]- 9253 10 Jun, 2011 [facility] [address] [id number] [place] [address]- 1576 07 Jun, 2011 [facility] [address] [id number] [place] [address]- 6186 07 Jun, 2011 [facility] [place] [facility] [address] [id number] [place] [address]- 4936 03 Jun, 2011 [facility] [place] [facility] [address] [id number] [place] [address]- 1676 02 Jun, 2011 [facility] [place] [facility] [address] [id number] [place] [address]- 9375 31 May, 2011 [facility] [address] [id number] [place] [address]- 0183 30 May, 2011 [facility] [address] [id number] [place] [address]- 2306 May, [facility] [address] [id number] [place] [address]- 1664 May, [facility] [address] [id number] [place] [address]- 9005 May, [facility] [address] [id number] [place] [address]- 3503 May, [facility] [address] [id number] [place] [address]- 5969 May, [facility] [address] [id number] [place] [address]- 1077 May, [facility] [place] [facility] [address] [id number] [place] [address]- 3350 May, [facility] [address] [id number] [place] [address]- 7334 May, [facility] [place] [facility] [address] [id number] [place] [address]- 6926 May, [facility] [address] [id number], [place] [address]- 3288 May, [facility] [place] [facility] [address] [id number], [place] [address]- 0286 May, [facility] [place] [facility] [address] [id number] [place] [address]- 3459 May, [facility] [place] [facility] [address] [id number] [place] [address]- 2782 30 Apr, 2011 [facility] [place] [facility] [address] [id number] [place] [address]- 8188 16 Apr, 2011 [facility] [place] [facility] [address] [id number] [place] [address]- 7599 05 Apr, 2011 [facility] [place] [facility] [address] [id number] [place] [address]- 0976 17 Mar, 2011 [facility] [place] [facility] [address] [id number] [place] [address] 2546 Mar, [facility] [place] [facility] [address] [id number] [place] [address]- 9376 31 Feb, 2011 [facility] [place] [facility] [address] [id number] [place] [address] 2546 26 Feb, 2011 [facility] [place] [facility] [address] [id number] [place] [address]- 1818 Feb, [facility] [place] [facility] [address] [id number] [place] [address]- 9190 20 Feb, 2011 [facility] [place] [facility] [address] [id number] [place] [address]- 4539 13 Feb, 2011 [facility] [place] [facility] [address] [id number] [place] [address]- 9332 28 Apr, 2010 [facility] [place] [facility] [address] [id number] [place] [address] 2546 22 Apr, 2010 [facility] [place] [facility] [address] [facility] [id number] [place] [address] 2548 16 Apr, 2010 [facility] [place] [facility] [address] [id number] [place] [address] 2546 15 Apr, 2010 [facility] [place] [facility] [address] [id number] [place] [address] 2546 15 Apr, 2010 [facility] [place] [facility] [address] [id number] [place] [address] 2546 Apr, [facility] [place] [facility] [address] [id number] [place] [address] 2546 24 Mar, 2010 [facility] [place] [facility] [address] [id number] [place] [address] 2543 17 Mar, 2010 [facility] [id number] [address]- 1708 17 Mar, 2010 [facility] [id number], [place] [address]- 6622 28 Feb, 2010 [facility] [id number], [place] [address]- 7232 Feb, [facility] [id number] [place] [address]- 8294 Feb, [facility] [id number], [place] [address]- 6230 Feb, [facility] [id number] [place] [address] 277[address]- 0328 Dec, [facility] [id number], [place] [address]- 2664 Dec, [facility] [id number] [place] [address]- 6125 Oct, [facility] [id number], [place] [address]- 4192 Mar, [facility] [id number], [place] [address]- 7118 Mar, [facility] [id number], [place] [address]- 9200 September, IMMUNIZATIONS No Known Immunizations SOCIAL HISTORY Never Assessed [place]AS[place] FOR [place] [place] VITAL SIGNS MEDICATIONS Unknown [...]
--- OUTSIDE RECORDS SUMMARY | 2018-09-19 09:09 | XMS REPORT ---
Author Author Migration, Doctor Organization [facility] Address Unknown Phone Unavailable Care Team Providers Care Senior Information Security Engineer Name Role Phone Migration, Doctor Unavailable Unavailable PROBLEMS Type Condition ICD9-CM Code [id number] Code Onset Dates Condition Status SNOMED Code Problem Hypokalemia E87.6 Active 888927216 Problem Generalized anxiety disorder F41.1 Active 10368798 Problem Pain in right knee M25.561 Active 96465822 Problem Right low back pain, with sciatica presence unspecified M54.5 Active 841541962 Problem Right foot pain M79.671 Active 22049066 Problem UTI symptoms R39.9 Active 66058930 Problem Essential hypertension I10 Active 93572431 Problem Gastroesophageal reflux disease without esophagitis K21.9 Active 847342774 Problem Weight decrease R63.4 Active 953039401 Problem Depression, unspecified depression type F32.9 Active 47656952 Problem Right upper quadrant abdominal pain R10.11 Active 995022148 Problem Tobacco abuse Z72.0 Active 20770495 Problem Insomnia, unspecified type G47.00 Active 164261322 Problem Weight loss R63.4 Active 070252571 Problem Post-traumatic stress disorder, chronic F43.12 Active 19055119 Problem Pulmonary emphysema, unspecified emphysema type J43.9 Active 83274466 Problem Neuropathy G62.9 Active 661871233 Problem Anxiety F41.9 Active 44989290 Problem Other emphysema J43.8 Active 18386178 Problem Other chronic pain G89.29 Active 57197750 Problem Chronic pain G89.29 Active 76589021 Problem Opioid use disorder, moderate, dependence F11.20 Active 26326286 Problem Back pain M54.9 Active 960134937 Problem Bone pain M89.8X9 Active 38309724 Problem Panic attacks F41.0 Active 615072563 Problem Kidney stones N20.0 Active 37837040 Problem Renal calculus, right N20.0 Active 41598900 Problem Generalized abdominal pain R10.84 Active 371843875 ALLERGIES No Information ENCOUNTERS Encounter Location Date Diagnosis [facility] [address], [place] [address] 0[address] Feb, [facility] [id number] [place] [address] 79075- 4485 Dec, [facility] [id number] [place] [address] 81639- 0337 Dec, [facility] [id number] [place] [address] 59635- 4771 Dec, Medicare welcome exam Z00.00 [facility] [id number] [place] [address] 21797- 2662 17 Nov, 2017 Opioid use disorder, moderate, dependence F11.20 [facility] [id number] [place] [address] 95371- 0927 16 Nov, 2017 Pelvic pain R10.2 ; Acute pyelonephritis N10 and Essential hypertension I10 [facility] [id number] [place] [address] 31091- 1385 28 Oct, 2017 Medicare welcome exam Z00.00 [facility] [id number] [place] [address] 25480- 8277 Oct, Gross hematuria R31.0 ; Urinary tract infection without hematuria, site unspecified N39.0 and Weakness R53.1 [facility] [id number] [place] [address] 71766- 2041 Oct, [facility] [id number] [place] [address] 45149- 8145 Oct, [facility] [id number] [place] [address] 55414- 6937 Oct, Medicare welcome exam Z00.00 [facility] [id number] [place] [address] 05820- 6834 September, Back pain M54.9 and Right anterior knee pain M25.561 [facility] [id number] [place] [address] 33832- 4319 September, [facility] [address], [place] [address] 4894 September, [facility] [id number] [place] [address] 69221- 5609 September, Essential hypertension I10 [facility] [id number] [place] [address] 38225- 2903 September, [facility] [id number] [place] [address] 90534- 3348 September, RLQ abdominal pain R10.31 ; Low back pain M54.5 and Other chronic pain G89.29 [facility] [id number] [place] [address] 28892- 4776 Aug, Medicare welcome exam Z00.00 [facility] [id number] [place] [address] 97379- 7657 Aug, [facility] [id number] [place] [address] 99664- 0081 Aug, Acute pyelonephritis N10 and Medicare welcome exam Z00.00 [facility] [id number] [place] [address] 30328 -0447 Aug, Dysuria R30.0 and Acute pyelonephritis N10 [facility] [address], [place] [address] 3244 Aug, [facility] [id number] [place] [address] 84745- 7157 Aug, [facility] [id number] [place] [address] 04364- 6543 Aug, [facility] [id number] [place] [address] 77476- 5542 Aug, [facility] [address], [place] [address]- 6346 Jul, [facility] [id number] [place] [address] 78149- 8616 Jul, Renal calculus, right N20.0 and Medicare welcome exam Z00.00 [facility] [id number] [place] [address] 43733 -8025 Jul, Dysuria R30.0 and Renal calculus, right N20.0 [facility] [id number] [place] [address] 90474- 2412 Jul, Medicare welcome exam Z00.00 [facility] [id number] [place] [address] 75621- 8013 Jun, Gastroesophageal reflux disease without esophagitis K21.9 and Generalized abdominal pain R10.84 [facility] [id number] [place] [address] 06448- 9445 Jun, Medicare welcome exam Z00.00 [facility] [id number] [place] [address] 69536- 5386 Jun, [facility] [id number] [place] [address] 89265- 9303 Jun, Medicare welcome exam Z00.00 and Encounter for screening mammogram for malignant neoplasm of breast Z12.31 [facility] [id number] [place] [address] 12290- 7852 Jun, Chronic pain G89.29 [facility] [id number] [place] [address] 36584- 1631 May, [facility] [id number] [place] [address] 79581- 1609 May, Pelvic pain R10.2 [facility] [id number] [place] [address] 22373- 1616 May, Pelvic pain R10.2 [facility] [id number] [place] [address] 88586 -4821 May, Renal calculus, right N20.0 [facility] [id number] [place] [address] 54711- 6114 May, Hematuria, unspecified type R31.9 and Nephrolithiasis N20.0 [facility] [id number] [place] [address] 44952 -1430 May, Dysuria R30.0 and Nephrolithiasis N20.0 [facility] [id number] [place] [address] 57250- 4037 May, [facility] [id number] [place] [address] 43190 -8537 May, Abdominal pain R10.9 and Kidney stone N20.0 [facility] [id number] [place] [address] 52650- 0292 May, [facility] [id number] [place] [address] 20835- 7650 May, Chronic pain G89.29 and Panic attacks F41.0 [facility] [id number] [place] [address] 74863- 1827 May, Urinary tract infection without hematuria, site unspecified N39.0 [facility] [id number] [place] [address] 40802- 5010 Apr, Right lower quadrant abdominal pain R10.31 and Abnormal serum lipase level R74.8 [facility] [id number] [place] [address] 76991- 8256 Apr, Recurrent urinary tract infection N39.0 [facility] [id number] [place] [address] 57294- 8057 Apr, UTI symptoms R39.9 ; Recurrent urinary tract infection N39.0 and Pelvic pain R10.2 [facility] [address] [place] [address] 07086- 8682 Apr, Chronic pain G89.29 and Panic attacks F41.0 [facility] [id number] [place] [address] 00407- 6637 Apr, Dysuria R30.0 [facility] [id number] [place] [address] 26681- 9832 Apr, [facility] [id number] [place] [address] 97269- 2040 Apr, Dysuria R30.0 and Urinary tract infection without hematuria , site unspecified N39.0 [facility] [id number] [place] [address] 97158- 2628 Mar, UTI symptoms R39.9 [facility] [id number] [place] [address] 85606- 6176 Mar, [facility] [id number] [place] [address] 77401- 5104 Mar, Panic attacks F41.0 and Chronic pain G89.29 [facility] [address] 68829- 3900 Mar, [facility] [id number] [place] [address] 66084- 5670 Mar, Dysuria R30.0 [facility] [id number] [place] [address] 57480- 2233 Mar, Dysuria R30.0 [facility] [id number] [place] [address] 76535- 0060 Feb, Chronic pain G89.29 ; Shortness of breath R06.02 ; Weight loss R63.4 ; Encounter for immunization Z23 ; Bone pain M89.8X9 ; Right anterior knee pain M25.561 and Cough R05 [facility] [id number] [place] [address] 34910- 2159 Feb, Shortness of breath R06.02 [facility] [id number] [place] [address] 96447- 5600 Feb, [facility] [id number] [place] [address] 82217- 5443 Feb, Panic attacks F41.0 and Chronic pain G89.29 [facility] [address] 33093- 4612 Feb, [facility] [address] 70604- 8188 04 Feb, 2017 Panic attacks F41.0 ; Shortness of breath R06.02 and Encounter for immunization Z23 [facility] [address] 45806- 4277 Jan, [facility] [address] 18864- 5047 15 Jan, 2017 Anxiety F41.9 and Chronic pain G89.29 [facility] [address] 48598- 9881 Dec, Anxiety F41.9 and Chronic pain G89.29 [facility] [address] 55594- 2283 Nov, Chronic pain G89.29 [facility] [address] 26160- 3700 Nov, Anxiety F41.9 [facility] [address] 21520- 8334 Nov, Chronic pain G89.29 ; Essential hypertension I10 and Other emphysema J43.8 [facility] [id number] [place] [address] 76917- 3103 Oct, Anxiety F41.9 [facility] [address] 86456- 2061 Oct, [facility] [address] 74641- 6562 Oct, Chronic pain G89.29 [facility] [address] 31554- 6850 September, Recurrent UTI N39.0 ; Neuropathy G62.9 and Anxiety F41.9 [facility] [id number] [place] [address] 75544- 3308 September, [facility] [id number] [place] [address] 65196- 8669 September, Chronic pain G89.29 [facility] [id number] [place] [address] 66264- 1654 September, [facility] [address] 02810- 1328 Aug, Post-traumatic stress disorder, chronic F43.12 ; Chronic urinary tract infection N39.0 ; Gastroesophageal reflux disease without esophagitis K21.9 ; Chronic pain G89.29 ; Essential hypertension I10 and Tobacco abuse Z72.0 [facility] [id number] [place] [address] 18271 -1957 Aug, [facility] [address] 73237- 0159 Aug, Chronic pain G89.29 [facility] [address] 81386- 6267 Aug, Insomnia, unspecified type G47.00 [facility] [id number] [place] [address] 20986- 8400 Aug, [facility] [id number] [place] [address] 80840- 4713 Jul, Chronic pain G89.29 [facility] [id number] [place] [address] 26141- 4116 Jul, [facility] [address] 84187- 0590 Jul, [facility] [id number] [place] [address] 25305- 2331 Jul, [facility] [address] 86091- 3051 15 Jul, 2016 Recurrent UTI (urinary tract infection) N39.0 [facility] [id number] [place] [address] 50960- 7402 14 Jul, 2016 [facility] [id number] [place] [address] 10313- 3238 27 Jun, 2016 Chronic pain G89.29 [facility] [id number] [place] [address] 16313- 8394 17 Jun, 2016 [facility] [id number] [place] [address] 09543- 8668 Jun, [facility] [id number] [place] [address] 52825- 6302 May, Chronic pain G89.29 [facility] [id number] [place] [address] 70473- 6259 May, Weight loss R63.4 and Shortness of breath R06.02 [facility] [id number] [place] [address] 74109- 2826 May, Chronic pain G89.29 ; Weight loss R63.4 and Tobacco abuse Z72.0 [facility] [address] [place] [address] 46210- 7480 May, [facility] [id number] [place] [address] 03377- 5645 May, Hypoxia R09.02 [facility] [id number] [place] [address] 98724- 5355 May, [facility] [id number] [place] [address] 16605- 5556 May, Pulmonary emphysema, unspecified emphysema type J43.9 [facility] [address] [place] [address] 06789 -0927 May, [facility] [id number] [place] [address] 11817- 9214 May, [facility] [id number] [place] [address] 28592- 7640 May, [facility] [address] 57865- 2189 May, Chronic pain G89.29 ; Encounter for immunization Z23 ; Right anterior knee pain M25.561 and Cough R05 [facility] [address] 39263- 9705 Apr, Chronic pain G89.29 [facility] [id number] [place] [address] 71829- 2227 Apr, [facility] [address] 00205- 0738 Apr, Generalized anxiety disorder F41.1 and Depression, unspecified depression type F32.9 [facility] [address] 27633- 7714 Apr, Chronic pain G89.29 ; Hypokalemia E87.6 and Insomnia, unspecified type G47.00 [facility] [id number] [place] [address] 13638- 2172 Apr, [facility] [id number] [place] [address] 47400- 6298 Apr, Chronic pain G89.29 [facility] [id number] [place] [address] 00012- 2472 Apr, [facility] [id number] [place] [address] 02337- 2266 Mar, [facility] [id number] [place] [address] 58265- 9712 Mar, Insomnia, unspecified type G47.00 [facility] [id number] [place] [address] 86904- 4568 Mar, Chronic pain G89.29 [facility] [id number] [place] [address] 60354- 0301 Mar, [facility] [address], [place] [address]- 0827 Feb, [facility] [address], [place] [address]- 4189 Feb, [facility] [id number] [place] [address] 21396- 0157 Feb, [facility] [id number] [place] [address] 83214- 2937 Feb, [facility] [id number] [place] [address] 25157- 0449 Feb, [facility] [id number] [place] [address] 73740- 5854 29 Jan, 2016 [facility] [id number] [place] [address] 73738- 6937 26 Jan, 2015 [facility] [address], [place] [address]- 4414 20 Jan, 2015 [facility] [id number] [place] [address] 14954- 9464 13 Jan, 2015 [facility] [address], [place] [address]- 0828 12 Jan, 2016 [facility] [id number] [place] [address] 42898- 2864 07 Jan, 2015 Chronic pain G89.29 [facility] [address], [place] [address]- 0141 Jan, 2015 Chronic pain G89.29 and Fibromyalgia M79.7 [facility] [address], [place] [address]- 4427 Dec, Depression, unspecified depression type F32.9 and Generalized anxiety disorder 300.02 [facility] [address], [place] [address]- 4672 Dec, Dysthymia F34.1 ; Insomnia, unspecified type G47.00 and Chronic pain G89.29 [facility] [address] [facility] [place] [id number] [place] [address] 38469- 3296 Dec, Chronic pain G89.29 [facility] [id number] [place] [address] 50050 2546 Dec, Insomnia, unspecified type G47.00 [facility] [address] [facility] [place] [place] [id number] [place] [address] 50146 2543 Dec, Fibromyalgia M79.7 and Chronic pain G89.29 [facility] [id number] [place] [address] 73703- 1326 Dec, [facility] [id number] [place] [address] 19890 2546 Dec, [facility] [id number] [place] [address] 47797- 1332 Dec, [facility] [id number] [place] [address] 96916 2546 Dec, [facility] [id number] [place] [address] 59552- 7264 Dec, Chronic pain G89.29 [facility] [id number] [place] [address] 97471 2543 Dec, [facility] [id number] [place] [address] 94570 2541 Dec, [facility] [id number] [place] [address] 26864 2546 Dec, [facility] [id number] [place] [address] 14569 2545 Dec, Chronic pain G89.29 and Dysthymia F34.1 [facility] [id number] [place] [address] 53365 2540 Nov, [facility] [id number] [place] [address] 34546- 5694 Nov, Hypokalemia E87.6 and Chronic pain G89.29 [facility] [address] 66370- 3880 Nov, Back pain M54.9 and Pain in right knee M25.561 [facility] [address] 36291- 2047 Nov, [facility] [address] 35013- 8176 Nov, Chronic pain G89.29 [facility] [address] 08975- 4747 Nov, Chronic pain G89.29 ; Weight loss R63.4 ; Bone pain M89.8X9 and Insomnia, unspecified type G47.00 [facility] [address] 16755- 5196 Nov, Chronic pain G89.29 [facility] [address] 44045- 7994 Nov, Chronic pain G89.29 [facility] [address] 43417- 1187 30 Oct, 2015 Chronic pain G89.29 [facility] [id number] [place] [address] 41393- 8532 Oct, UTI symptoms R39.9 [facility] [id number] [place] [address] 55774- 6633 27 Oct, 2015 Chronic pain G89.29 [facility] [address] 46631- 0586 20 Oct, 2015 Chronic pain G89.29 [facility] [id number] [place] [address] 80985- 2271 13 Oct, 2015 Chronic pain G89.29 [facility] [address] 61697- 1353 Oct, Right upper quadrant abdominal pain R10.11 [facility] [address], [place] [address]- 0197 Oct, Chronic pain G89.29 [facility] [address], [place] [address]- 2182 Oct, [facility] [id number] [place] [address] 18782- 9274 September, Chronic pain G89.29 [facility] [id number] [place] [address] 46710- 0071 September, Dysuria R30.0 and Urinary tract infection without hematuria , site unspecified N39.0 [facility] [id number] [place] [address] 15191- 6758 September, [facility] [id number] [place] [address] 99053- 8127 September, Dysuria R30.0 [facility] [id number] [place] [address] 56007- 1334 September, Chronic pain G89.29 [facility] [id number] [place] [address] 98065- 0016 September, Chronic pain G89.29 and Essential hypertension I10 [facility] [id number] [address] 14[address] September, [facility] [id number] [place] [address] 02799- 1573 September, [facility] [id number] [place] [address] 13480- 1919 September, [facility] [id number] [place] [address] 47326- 1412 Aug, UTI symptoms R39.9 [facility] [id number] [address] Aug, Dysuria R30.0 [facility] [id number], [place] [address] Aug, [facility] [id number] [place] [address] 61236- 5616 Aug, [facility] [id number] [place] [address] 45723- 1652 Aug, [facility] [id number] [place] [address] 15074- 0141 Aug, Chronic pain G89.29 [facility] [id number] [place] [address] 93795- 9766 Aug, Dysthymia F34.1 [facility] [id number] [place] [address] 33523- 4496 Aug, Conjunctivitis, unspecified conjunctivitis type, unspecified laterality H10.9 [facility] [id number] [place] [address] 61715- 2826 Jul, Chronic pain G89.29 ; Back pain M54.9 ; Tobacco abuse Z72.0 and Weight decrease R63.4 [facility] [id number] [place] [address] 09527- 9022 Jul, [facility] [id number] [place] [address] 39056- 7531 Jul, [facility] [id number] [place] [address] 28315- 8994 24 Jul, 2015 Chronic pain G89.29 [facility] [id number] [address] 2847 Jul, [facility] [id number] [place] [address] 19845- 8776 Jul, [facility] [id number] [place] [address] 87877- 1860 Jul, [facility] [id number] [place] [address] 66177- 9283 17 Jul, 2015 [facility] [id number] [address]- 1006 17 Jul, 2015 Chronic pain G89.29 [facility] [id number], [place] [address]- 7282 16 Jul, 2015 Chronic pain G89.29 [facility] [id number] [place] [address] 82225- 5080 15 Jul, 2015 [facility] [id number] [place] [address] 17350- 9503 Jul, [facility] [id number] [place] [address] 96926- 8395 Jul, [facility] [id number] [place] [address] 33286- 3450 Jul, [facility] [id number] [place] [address] 90746- 6726 Jun, [facility] [id number] [place] [address] 70584- 3385 Jun, Depression, unspecified depression type F32.9 [facility] [id number] [place] [address] 87091- 4593 Jun, Pain in right knee M25.561 [facility] [id number] [place] [address] 38072- 6619 24 Jun, 2015 Chronic pain G89.29 ; Back pain M54.9 ; Bone pain M89.8X9 and Weight loss R63.4 [facility] [id number] [place] [address] 79341- 4876 Jun, [facility] [id number] [place] [address] 81319- 6391 May, [facility] [facility] [id number], [place] [address] May, UTI symptoms R39.9 ; Pain in right knee M25.561 ; Right low back pain, with sciatica presence unspecified M54.5 ; Right foot pain M79.671 ; Hypokalemia E87.6 and Screening, lipid Z13.220 [facility] [id number] [place] [address] 26133- 1936 May, [facility] [id number] [place] [address] 94703- 3058 May, [facility] [id number] [place] [address] 08917- 9113 Mar, [facility] [id number] [place] [address] 04667- 4864 Mar, [facility] [id number] [place] [address] 01622- 6540 Mar, Hypokalemia E87.6 [facility] [address] [address]- [address] Mar, Pain in right leg M79.604 ; Encounter for immunization Z23 ; Pain in right knee M25.561 and Hypokalemia E87.6 [facility] [id number] [place] [address] 15184- 6857 Jan, [facility] [id number] [place] [address] 87111- 4610 Jan, [facility] [id number] [place] [address] 43301 2545 Jan, Abdominal pain, generalized 789.07 [facility] [id number] [place] [address] 27939 2548 Jan, Abdominal pain, generalized 789.07 [facility] [id number] [place] [address] 87406- 1830 Dec, [facility] [id number] [place] [address] 33754- 4168 Dec, [facility] [address], [place] [address] 99[address] Dec, [facility] [id number] [place] [address] 18431- 9969 Nov, Hallux valgus 735.0 and Hammertoe 735.4 [facility] [address], [place] [address] 2196 Nov, [facility] [id number] [place] [address] 41761- 6560 Nov, Hallux valgus 735.0 and Hammer toe 735.4 [facility] [id number] [place] [address] 11866- 3436 Oct, [facility] [id number] [place] [address] 03263- 4416 Oct, [facility] [id number] [place] [address] 12005- 4146 Oct, Pre-op evaluation V72.84 [facility] [id number], [place] [address] 1970 Oct, [facility] [id number] [place] [address] 29219- 7977 Oct, [facility] [address], [place] [address]- 2662 September, [facility] [address], [place] [address] 2546 September, [facility] [id number] [address] 5678 September, Hallux valgus (acquired) 735.0 and Other hammer toe ( acquired) 735.4 [facility] [address], [place] [address]- 2546 Aug, [facility] [id number] [place] [address] 91320- 0724 Aug, [facility] [place] [facility] [address] [id number] [place] [address]- 9252 Jul, [facility] [place] [facility] [address] [id number] [place] [address]- 0583 Jul, [facility] [place] [facility] [address] [id number] [place] [address]- 8386 Jul, [facility] [place] [facility] [address] [id number] [place] [address]- 4918 Jul, [facility] [place] [facility] [address] [id number] [place] [address]- 3448 Jul, [facility] [place] [facility] [address] [id number] [place] [address]- 5559 Jul, [facility] [place] [facility] [address] [facility] [place] [id number] [place] [address]- 8115 Jul, [facility] [place] [facility] [address] [id number] [place] [address]- 1195 Jul, [facility] [place] [facility] [address] [id number] [place] [address]- 4504 Jun, [facility] [place] [facility] [address] [facility] [place] [place] [id number] [place] [address]- 2759 Jun, [facility] [place] [facility] [address] [id number] [place] [address]- 8483 Jun, 2014 [facility] [place] [facility] [address] [id number] [place] [address]- 3832 Jun, [facility] [place] [facility] [address] [id number] [place] [address]- 4168 Jun, [facility] [place] [facility] [address] [id number] [place] [address]- 2983 Jun, [facility] [place] [facility] [address] [facility] [place] [place] [id number] [place] [address]- 2897 Jun, [facility] [place] [facility] [address] [id number] [place] [address]- 0575 Jun, [facility] [address] [id number] [place] [address]- 6487 Jun, [facility] [place] [facility] [address] [id number] [place] [address]- 8376 Jun, [facility] [place] [facility] [address] [id number] [place] [address]- 3178 May, [facility] [place] [facility] [address] [id number] [place] [address]- 7857 May, [facility] [place] [facility] [address] [id number] [place] [address]- 3214 May, [facility] [place] [facility] [address] [id number] [place] [address]- 6449 May, [facility] [place] [facility] [address] [id number] [place] [address]- 4161 May, [facility] [address] [id number] [place] [address]- 4758 May, [facility] [place] [facility] [address] [id number] [place] [address]- 0140 May, [facility] [place] [facility] [address] [id number] [place] [address]- 0446 May, [facility] [place] [facility] [address] [id number] [place] [address]- 8704 May, [facility] [place] [facility] [address] [id number] [place] [address]- 5463 May, [facility] [place] [facility] [address] [id number] [place] [address]- 1761 May, [facility] [place] [facility] [address] [id number] [place] [address]- 8126 May, [facility] [place] [facility] [address] [id number] [place] [address]- 8819 May, [facility] [place] [facility] [address] [id number] [place] [address]- 1206 May, [facility] [place] [facility] [address] [id number] [place] [address]- 8498 May, [facility] [place] [facility] [address] [id number] [place] [address]- 2063 May, [facility] [place] [facility] [address] [id number] [place] [address]- 0916 May, [facility] [place] [facility] [address] [id number] [place] [address]- 5917 May, [facility] [place] [facility] [address] [id number] [place] [address]- 1814 Apr, [facility] [place] [facility] [address] [id number] [place] [address]- 2487 Apr, [facility] [place] [facility] [address] [id number] [place] [address]- 7937 Apr, [facility] [place] [facility] [address] [id number] [place] [address]- 8159 Apr, [facility] [place] [facility] [address] [id number] [place] [address]- 2282 Apr, [facility] [place] [facility] [address] [id number] [place] [address]- 2450 Apr, [facility] [place] [facility] [address] [id number] [place] [address]- 2278 Apr, [facility] [place] [facility] [address] [id number] [place] [address]- 4364 Apr, [facility] [place] [facility] [address] [id number] [place] [address]- 5244 Apr, [facility] [place] [facility] [address] [id number] [place] [address]- 3353 Mar, [facility] [place] [facility] [address] [id number] [place] [address]- 3552 Mar, [facility] [place] [facility] [address] [id number] [place] [address]- 8093 Mar, [facility] [place] [facility] [address] [id number] [place] [address]- 8668 Mar, [facility] [place] [facility] [address] [id number] [place] [address]- 8341 Mar, [facility] [place] [facility] [address] [id number] [place] [address]- 5270 Feb, [facility] [place] [facility] [address] [id number] [place] [address]- 3802 Feb, [facility] [place] [facility] [address] [id number] [place] [address]- 4341 Feb, [facility] [place] [facility] [address] [id number] [place] [address]- 9088 Feb, [facility] [place] [facility] [address] [id number] [place] [address]- 3823 Feb, [facility] [place] [facility] [address] [id number] [place] [address]- 3801 Feb, [facility] [place] [facility] [address] [id number] [place] [address]- 6571 Feb, [facility] [place] [facility] [address] [id number] [place] [address]- 4059 Feb, [facility] [place] [facility] [address] [id number] [address]- 1830 Feb, [facility] [place] [facility] [address] [id number] 1979 Feb, [facility] [place] [facility] [address] [id number], [place] [address]- 5322 Feb, [facility] [place] [facility] [address] [id number] 0838 Feb, [facility] [place] [facility] [address] [id number] [place] [address]- 5871 07 Feb, 2013 [facility] [place] [facility] [address] [id number] [place] [address]- 2483 Feb, [facility] [place] [facility] [address] [id number] [place] [address]- 5798 Feb, 2013 [facility] [place] [facility] [address] [id number] [place] [address]- 8308 Feb, [facility] [place] [facility] [address] [id number] [place] [address]- 9677 Jan, 2013 [facility] [place] [facility] [address] [id number] [place] [address]- 0871 23 Jan, 2013 [facility] [place] [facility] [address] [id number] [place] [address]- 1764 20 Jan, 2014 [facility] [place] [facility] [address] [id number] [place] [address]- 6824 19 Jan, 2013 [facility] [place] [facility] [address] [id number] [place] [address]- 9128 11 Jan, 2014 [facility] [place] [facility] [address] [id number] [place] [address]- 8037 Jan, [facility] [place] [facility] [address] [id number] [place] [address]- 7688 Jan, [facility] [place] [facility] [address] [id number] [place] [address]- 4111 Jan, 2013 [facility] [place] [facility] [address] [id number] [place] [address]- 0526 Dec, [facility] [place] [facility] [address] [id number] [place] [address]- 0336 Dec, [facility] [place] [facility] [address] [id number] [place] [address]- 3742 Nov, [facility] [place] [facility] [address] [id number] [place] [address]- 6687 Nov, [facility] [place] [facility] [address] [id number] [place] [address]- 1308 Nov, [facility] [place] [facility] [address] [id number] [place] [address]- 2733 Nov, [facility] [place] [facility] [address] [id number] [place] [address]- 3507 Nov, [facility] [place] [facility] [address] [id number] [place] [address]- 6558 Nov, [facility] [place] [facility] [address] [id number] [place] [address]- 3641 Nov, [facility] [place] [facility] [address] [id number] [place] [address]- 8929 Nov, [facility] [place] [facility] [address] [id number] [place] [address]- 6443 Nov, [facility] [place] [facility] [address] [id number] [place] [address]- 1741 Oct, [facility] [place] [facility] [address] [id number] [place] [address]- 3706 Oct, [facility] [place] [facility] [address] [id number] [place] [address]- 1827 Oct, [facility] [place] [facility] [address] [id number] [place] [address]- 1841 Oct, [facility] [place] [facility] [address] [id number] [place] [address]- 9464 Oct, [facility] [place] [facility] [address] [id number] [place] [address]- 5797 Oct, [facility] [place] [facility] [address] [id number] [place] [address]- 6314 September, [facility] [place] [facility] [address] [id number] [place] [address]- 7788 September, [facility] [place] [facility] [address] [id number] [place] [address]- 7611 September, [facility] [address] [id number] [place] 7314 September, [facility] [address] [id number] [place] [address]- 2228 September, [facility] [address] [id number] [place] [address]- 9656 September, [facility] [address] [id number] [place] [address]- 1395 September, [facility] [address] [id number] [place] 2184 September, [facility] [address] [id number] [place] [address]- 5530 September, [facility] [address] [id number] [place] [address]- 3953 September, [facility] [address] [id number] [place] [address]- 1028 September, [facility] [address] [id number] [place] [address]- 5809 September, [facility] [address] [id number] [place] [address]- 9702 September, [facility] [address] [id number] [place] [address]- 6392 September, [facility] [address] [id number] [place] [address]- 3040 September, [facility] [place] [facility] [address] [id number] [place] 9057 September, [facility] [place] [facility] [address] [id number] [place] 8757 September, [facility] [address] [id number] [place] [address]- 0514 September, [facility] [place] [facility] [address] [id number] [place] [address]- 5535 September, [facility] [place] [facility] [address] [id number] [place] [address]- 5822 September, [facility] [place] [facility] [address] [id number] [place] [address]- 3593 Aug, [facility] [place] [facility] [address] [id number] [place] [address]- 9146 Aug, [facility] [place] [facility] [address] [id number] [place] [address]- 8717 Aug, [facility] [place] [facility] [address] [id number] [place] [address]- 8953 Aug, [facility] [place] [facility] [address] [id number] [place] [address]- 7195 Aug, [facility] [place] [facility] [address] [id number] [place] [address]- 6719 Aug, [facility] [place] [facility] [address] [id number] [place] [address]- 5304 Aug, [facility] [place] [facility] [address] [id number] [place] [address]- 2966 Aug, [facility] [place] [facility] [address] [id number] [place] [address]- 4450 Aug, [facility] [place] [facility] [address] [id number] [place] [address]- 4305 Aug, [facility] [place] [facility] [address] [id number] [place] [address]- 1900 Aug, [facility] [place] [facility] [address] [id number] [place] [address]- 7153 Aug, [facility] [place] [facility] [address] [id number] [place] [address]- 0497 Aug, [facility] [place] [facility] [address] [id number] [place] [address]- 6301 Aug, [facility] [place] [facility] [address] [id number] [place] [address]- 6944 Aug, [facility] [place] [facility] [address] [id number] [place] [address]- 0483 Jul, [facility] [place] [facility] [address] [id number] [place] [address]- 3188 Jul, [facility] [place] [facility] [address] [id number] [place] [address]- 7376 Jul, [facility] [place] [facility] [address] [id number] [place] [address]- 0476 Jul, [facility] [place] [facility] [address] [id number] [place] [address]- 8555 Jul, [facility] [place] [facility] [address] [id number] [place] [address]- 2615 Jul, [facility] [place] [facility] [address] [id number] [place] [address]- 5482 Jul, [facility] [place] [facility] [address] [id number] [place] [address]- 1851 Jul, [facility] [place] [facility] [address] [id number] [place] [address]- 5536 Jul, [facility] [place] [facility] [address] [id number] [place] [address]- 6007 Jul, [facility] [place] [facility] [address] [id number] [place] [address]- 1906 Jul, [facility] [place] [facility] [address] [id number] [place] [address]- 4276 Jul, [facility] [place] [facility] [address] [id number] [place] [address]- 6119 Jul, [facility] [place] [facility] [address] [id number] [place] [address]- 8902 Jul, [facility] [place] [facility] [address] [id number] [place] [address]- 3819 Jul, [facility] [place] [facility] [address] [id number] [place] [address]- 2267 Jun, [facility] [place] [facility] [address] [id number] [place] [address]- 0096 Jun, [facility] [place] [facility] [address] [id number] [place] [address]- 8586 Jun, [facility] [place] [facility] [address] [id number] [place] [address]- 7130 Jun, [facility] [place] [facility] [address] [id number] [place] [address]- 4584 Jun, [facility] [place] [facility] [address] [id number] [place] [address]- 4489 Jun, [facility] [place] [facility] [address] [id number] [place] [address]- 5072 May, [facility] [place] [facility] [address] [id number] [place] [address]- 1947 May, [facility] [place] [facility] [address] [id number] [place] [address]- 6042 May, [facility] [place] [facility] [address] [id number] [place] [address]- 4758 May, [facility] [place] [facility] [address] [id number] [place] [address]- 5764 May, [facility] [place] [facility] [address] [id number] [place] [address]- 8640 May, [facility] [place] [facility] [address] [id number] [place] [address]- 6888 May, [facility] [place] [facility] [address] [id number] [place] [address]- 8450 May, [facility] [place] [facility] [address] [id number] [place] [address]- 0028 May, [facility] [address] [id number] [place] [address]- 2636 May, [facility] [place] [facility] [address] [id number] [place] [address]- 2677 May, [facility] [place] [facility] [address] [id number] [place] [address]- 6988 May, [facility] [place] [facility] [address] [id number] [place] [address]- 2425 May, [facility] [place] [facility] [address] [id number] [place] [address]- 0805 May, [facility] [place] [facility] [address] [id number] [place] [address]- 7949 May, [facility] [place] [facility] [address] [id number] [place] [address]- 5301 Apr, [facility] [place] [facility] [address] [id number] [place] [address] Apr, [facility] [place] [facility] [address] [id number] [place] [address] Apr, [facility] [place] [facility] [address] [id number] [place] [address] Apr, [facility] [place] [facility] [address] [id number] [place] [address] Apr, [facility] [place] [facility] [address] [id number] [place] [address] Apr, [facility] [place] [facility] [address] [id number] [place] [address] Apr, [facility] [place] [facility] [address] [id number] [place] [address] Apr, [facility] [place] [facility] [address] [id number] [place] [address] Apr, [facility] [place] [facility] [address] [id number] [place] [address] Apr, [facility] [address] [id number] [place] [address] Mar, [facility] [address] [id number] [place] [address] Mar, [facility] [address] [id number] [place] [address] Mar, [facility] [address] [id number] [place] [address] Mar, [facility] [address] [id number] [place] [address] Mar, [facility] [address] [id number] [place] [address] Mar, [facility] [address] [id number] [place] [address] Mar, [facility] [address] [id number] [place] [address] Mar, [facility] [address] [id number] [place] [address] Mar, [facility] [address] [id number] [place] [address] Mar, [facility] [address] [id number] [place] [address] Mar, [facility] [address] [id number] [place] [address] Mar, [facility] [place] [facility] [address] [id number] [place] [address]- [address]88 Mar, [facility] [place] [facility] [address] [id number] [place] [address] Mar, [facility] [address] [id number] [place] [address] Mar, [facility] [place] [facility] [address] [id number] [place] [address]- [address] 18 Mar, 2013 [facility] [place] [facility] [address] [id number] [place] [address] Mar, [facility] [place] [facility] [address] [id number] [place] [address]- [address]48 Mar, [facility] [place] [facility] [address] [id number] [place] [address] Mar, [facility] [place] [facility] [address] [id number] [place] [address] Mar, [facility] [place] [facility] [address] [id number] [place] [address]169 Mar, [facility] [place] [facility] [address] [id number] [place] [address]35 Mar, [facility] [place] [facility] [address] [id number], [place] [address] Mar, [facility] [place] [facility] [address] [id number], [place] [address] Feb, [facility] [place] [facility] [address] [id number], [place] [address] Feb, [facility] [place] [facility] [address] [id number], [place] [address]- [address] Feb, [facility] [place] [facility] [address] [id number], [place] [address] 16 Feb, 2013 [facility] [place] [facility] [address] [id number], [place] [address]- [address] 15 Feb, 2013 [facility] [place] [facility] [address] [id number], [place] [address] Feb, [facility] [place] [facility] [address] [facility] [place] [id number], [place] [address]- [address] Feb, [facility] [place] [facility] [address] [id number], [place] [address] Feb, [facility] [address] [id number] [place] [address] 285[address] Feb, [facility] [place] [facility] [address] [id number] [place] [address]- [address] Feb, [facility] [place] [facility] [address] [id number] [place] [address]- [address] 30 Jan, 2013 [facility] [place] [facility] [address] [id number] [place] [address]- [address] 26 Jan, 2013 [facility] [place] [facility] [address] [id number] [place] [address]- [address] 24 Jan, 2013 [facility] [place] [facility] [address] [id number] [place] [address]- [address] 23 Jan, 2013 [facility] [place] [facility] [address] [id number] [place] [address]- 1188 17 Jan, 2013 [facility] [place] [facility] [address] [id number] [place] [address] Dec, [facility] [place] [facility] [address] [id number] [place] [address]31 Dec, [facility] [place] [facility] [address] [id number] [place] [address]- 6030 Dec, [facility] [place] [facility] [address] [id number] [place] [address]- [address] 15 Dec, 2012 [facility] [place] [facility] [address] [id number] [place] [address]- [address]643 14 Dec, 2012 [facility] [place] [facility] [address] [id number] [place] [address]- 7085 Dec, [facility] [place] [facility] [address] [id number] [place] [address] Dec, [facility] [place] [facility] [address] [id number] [place] [address]- [address] Nov, [facility] [place] [facility] [address] [id number] [place] [address]- [address] 16 Nov, 2012 [facility] [address] [id number] [place] [address]- [address] 15 Nov, 2012 [facility] [place] [facility] [address] [id number] [place] [address]- [address] 05 Nov, 2012 [facility] [address] [id number] [place] [address]- [address]46 Nov, [facility] [place] [facility] [address] [id number] [place] [address]- 1366 Oct, [facility] [address] [id number] [place] [address]- [address] Oct, [facility] [place] [facility] [address] [id number] [place] [address]- [address]46 Oct, [facility] [address] [id number] [place] [address]- [address]846 September, [facility] [address] [id number] [place] [address]- [address]654 September, [facility] [address] [id number] [place] [address]- 9776 September, [facility] [address] [id number] [place] [address]- [address] September, [facility] [place] [facility] [address] [id number] [place] [address]- 2916 September, [facility] [address] [id number] [place] [address]- 2546 September, [facility] [place] [facility] [address] [id number] [place] [address]- 2546 September, [facility] [place] [facility] [address] [id number] [place] [address] Aug, [facility] [place] [facility] [address] [id number] [place] [address] 23 Aug, 2012 [facility] [place] [facility] [address] [id number] [place] [address] 11 Aug, 2012 [facility] [place] [facility] [address] [id number] [place] [address]32 29 Jul, 2012 [facility] [place] [facility] [address] [id number] [place] [address] 3678 27 Jul, 2012 [facility] [place] [facility] [address] [id number] [place] [address]- 3531 26 Jul, 2012 [facility] [place] [facility] [address] [id number] [place] [address]- 4961 20 Jul, 2012 [facility] [place] [facility] [address] [id number] [place] [address]- 3475 18 Jul, 2012 [facility] [place] [facility] [address] [facility] [place] [id number] [place] [address]- [address] 18 Jul, 2012 [facility] [place] [facility] [address] [id number] [place] [address]- 9485 13 Jul, 2012 [facility] [place] [facility] [address] [id number] [place] [address]- 5387 28 Jun, 2012 [facility] [place] [facility] [address] [facility] [place] [place] [id number] [place] [address]- 0437 27 Jun, 2012 [facility] [place] [facility] [address] [facility] [place] [place] [id number] [place] [address]- 4999 22 Jun, 2012 [facility] [place] [facility] [address] [id number] [place] [address]- 0311 20 Jun, 2012 [facility] [place] [facility] [address] [id number] [place] [address]- 4611 15 Jun, 2012 [facility] [place] [facility] [address] [id number] [place] [address]- 4763 15 Jun, 2012 [facility] [place] [facility] [address] [facility] [place] [place] [id number] [place] [address]- 9420 13 Jun, 2012 [facility] [place] [facility] [address] [id number] [place] [address]- 6[address] Jun, [facility] [address] [id number] [place] [address]- 6706 Jun, [facility] [place] [facility] [address] [id number] [place] [address]- 2546 Jun, [facility] [address] [id number] [place] [address]- 6066 May, [facility] [place] [facility] [address] [id number] [place] [address] 2545 May, [facility] [address] [id number] [place] [address]- 3656 May, [facility] [address] [id number] [place] [address]- 4814 May, [facility] [address] [id number] [place] [address]- 6423 May, [facility] [address] [id number] [place] [address]- 7559 May, [facility] [address] [id number] [place] [address]- 4999 31 Apr, 2012 [facility] [address] [id number] [place] [address] 2546 31 Apr, 2012 [facility] [address] [id number] [place] [address] 2546 Apr, [facility] [place] [facility] [address] [id number] [place] [address] 2545 28 Apr, 2012 [facility] [place] [facility] [address] [id number] [place] [address] 2546 26 Apr, 2012 [facility] [place] [facility] [address] [id number] [place] [address]- 2546 20 Apr, 2012 [facility] [place] [facility] [address] [id number] [place] [address]- 0150 Apr, [facility] [place] [facility] [address] [id number] [place] [address]- 1265 Mar, [facility] [place] [facility] [address] [id number] [place] [address]- 7483 Mar, [facility] [place] [facility] [address] [facility] [place] [id number] [place] [address]- 1143 Mar, [facility] [place] [facility] [address] [id number] [place] [address]- 2395 Mar, [facility] [place] [facility] [address] [id number] [place] [address]- 0336 Mar, [facility] [place] [facility] [address] [id number], [place] [address]- 4[address] Mar, [facility] [place] [facility] [address] [id number] [place] [address]- 3658 Mar, [facility] [place] [facility] [address] [id number], [place] [address]- 9843 Mar, [facility] [place] [facility] [address] [id number], [place] [address]- 1395 Mar, [facility] [place] [facility] [address] [id number], [place] [address]- 5[address] Mar, [facility] [place] [facility] [address] [id number], [place] [address]- 7126 Mar, [facility] [place] [facility] [address] [id number], [place] [address]- 0[address] Mar, [facility] [place] [facility] [address] [id number], [place] [address]- 236[address] Mar, [facility] [place] [facility] [address] [facility] [place] [place] [id number], [place] [address]- 8621 Mar, [facility] [place] [facility] [address] [facility] [place] [place] [id number], [place] [address]- 0[address] Mar, [facility] [place] [facility] [address] [id number] [place] [address]- 6907 Mar, [facility] [place] [facility] [address] [id number] [place] [address]- 6209 Mar, [facility] [place] [facility] [address] [id number] [place] [address]- 3917 Feb, [facility] [place] [facility] [address] [id number] [place] [address]- 5088 Feb, 2011 [facility] [place] [facility] [address] [id number] [place] [address]- 8387 Feb, [facility] [place] [facility] [address] [id number] [place] [address]- 7517 Feb, [facility] [place] [facility] [address] [id number] [place] [address]- 4573 Feb, [facility] [place] [facility] [address] [id number] [place] [address]- 8220 Feb, [facility] [place] [facility] [address] [id number] [place] [address]- 4494 Feb, [facility] [place] [facility] [address] [id number] [place] [address]- 7900 Feb, [facility] [place] [facility] [address] [facility] [id number] [place] [address]- 8637 Feb, [facility] [place] [facility] [address] [id number] [place] [address]- 7911 Feb, [facility] [place] [facility] [address] [id number] [place] [address]- 4249 Feb, [facility] [place] [facility] [address] [id number] [place] [address]- 0264 27 Jan, 2011 [facility] [place] [facility] [address] [id number] [place] [address]- 1269 25 Jan, 2012 [facility] [place] [facility] [address] [id number] [place] [address]- 8483 13 Jan, 2012 [facility] [place] [facility] [address] [id number] [place] [address]- 6223 12 Jan, 2012 [facility] [place] [facility] [address] [id number] [place] [address]- 6379 Jan, [facility] [place] [facility] [address] [id number] [place] [address]- 9363 Dec, [facility] [place] [facility] [address] [id number] [place] [address]- 8290 Dec, [facility] [place] [facility] [address] [id number] [place] [address]- 5147 Dec, [facility] [place] [facility] [address] [id number] [place] [address]- 4419 Dec, [facility] [place] [facility] [address] [id number] [place] [address]- 5340 Dec, [facility] [place] [facility] [address] [id number] [place] [address]- 0873 Dec, [facility] [place] [facility] [address] [id number] [place] [address]- 0907 Dec, [facility] [place] [facility] [address] [id number] [place] [address]- 5373 Dec, [facility] [place] [facility] [address] [id number] [place] [address]- 6077 Nov, [facility] [place] [facility] [address] [id number] [place] [address]- 7118 Nov, [facility] [place] [facility] [address] [id number] [place] [address]- 8027 Nov, [facility] [place] [facility] [address] [id number] [place] [address]- 4126 Nov, [facility] [place] [facility] [address] [id number] [place] [address]- 7374 Nov, [facility] [place] [facility] [address] [id number] [place] [address]- 1612 Oct, [facility] [address] [id number] [place] Oct, [facility] [place] [facility] [address] [id number] [place] [address]- 5859 September, [facility] [address] [id number] [place] [address]- 4936 September, [facility] [place] [facility] [address] [id number] [place] [address]- 8858 September, [facility] [address] [id number] [place] [address]- 1077 September, [facility] [place] [facility] [address] [id number] [place] [address]- 0247 September, [facility] [address] [id number] [place] [address]- 4547 September, [facility] [place] [facility] [address] [id number] [place] [address]- 3349 September, [facility] [place] [facility] [address] [id number] [place] [address]- 7600 September, [facility] [place] [facility] [address] [id number] [place] [address]- 8982 September, [facility] [place] [facility] [address] [id number] [place] [address]- 5088 September, [facility] [place] [facility] [address] [id number] [place] [address]- 4705 September, [facility] [place] [facility] [address] [id number] [place] [address]- 6278 September, [facility] [place] [facility] [address] [id number] [place] [address]- 2885 September, [facility] [place] [facility] [address] [id number] [place] [address]- 4627 September, [facility] [place] [facility] [address] [id number] [place] [address]- 0328 24 Aug, 2011 [facility] [address] [id number] [place] [address]- 2064 20 Aug, 2011 [facility] [address] [id number] [place] [address]- 2656 13 Aug, 2011 [facility] [address] [id number] [place] [address]- 8997 11 Aug, 2011 [facility] [address] [id number] [place] [address]- 4384 23 Jul, 2011 [facility] [address] [id number] [place] [address]- 4387 13 Jul, 2011 [facility] [address] [id number] [place] [address]- 1045 13 Jul, 2011 [facility] [address] [id number] [place] [address]- 9494 28 Jun, [address] [facility] [address] [id number] [id number] 26 Jun, 2011 [facility] [address] [id number] [place] [address]- 2856 13 Jun, 2011 [facility] [address] [id number] [place] [address]- 9646 10 Jun, 2011 [facility] [address] [id number] [place] [address]- 6406 07 Jun, 2011 [facility] [address] [id number] [place] [address]- 0576 07 Jun, 2011 [facility] [place] [facility] [address] [id number] [place] [address]- 3296 03 Jun, 2011 [facility] [place] [facility] [address] [id number] [place] [address]- 9666 02 Jun, 2011 [facility] [place] [facility] [address] [id number] [place] [address]- 3773 31 May, 2011 [facility] [address] [id number] [place] [address]- 1724 30 May, 2011 [facility] [address] [id number] [place] [address]- 3413 May, [facility] [address] [id number] [place] [address]- 3090 May, [facility] [address] [id number] [place] [address]- 0060 May, [facility] [address] [id number] [place] [address]- 5099 May, [facility] [address] [id number] [place] [address]- 7476 May, [facility] [address] [id number] [place] [address]- 6328 May, [facility] [place] [facility] [address] [id number] [place] [address]- 2579 May, [facility] [address] [id number] [place] [address]- 2185 May, [facility] [place] [facility] [address] [id number] [place] [address]- 0906 May, [facility] [address] [id number], [place] [address]- 2359 May, [facility] [place] [facility] [address] [id number], [place] [address]- 8258 May, [facility] [place] [facility] [address] [id number] [place] [address]- 0234 May, [facility] [place] [facility] [address] [id number] [place] [address]- 2230 30 Apr, 2011 [facility] [place] [facility] [address] [id number] [place] [address]- 5323 16 Apr, 2011 [facility] [place] [facility] [address] [id number] [place] [address]- 4501 05 Apr, 2011 [facility] [place] [facility] [address] [id number] [place] [address]- 3976 17 Mar, 2011 [facility] [place] [facility] [address] [id number] [place] [address] 2546 Mar, [facility] [place] [facility] [address] [id number] [place] [address]- 4686 31 Feb, 2011 [facility] [place] [facility] [address] [id number] [place] [address] 2546 26 Feb, 2011 [facility] [place] [facility] [address] [id number] [place] [address]- 2883 Feb, [facility] [place] [facility] [address] [id number] [place] [address]- 3612 20 Feb, 2011 [facility] [place] [facility] [address] [id number] [place] [address]- 9583 13 Feb, 2011 [facility] [place] [facility] [address] [id number] [place] [address]- 4993 28 Apr, 2010 [facility] [place] [facility] [address] [id number] [place] [address] 2546 22 Apr, 2010 [facility] [place] [facility] [address] [facility] [id number] [place] [address] 2541 16 Apr, 2010 [facility] [place] [facility] [address] [id number] [place] [address] 2546 15 Apr, 2010 [facility] [place] [facility] [address] [id number] [place] [address] 2546 15 Apr, 2010 [facility] [place] [facility] [address] [id number] [place] [address] 2546 Apr, [facility] [place] [facility] [address] [id number] [place] [address] 2546 24 Mar, 2010 [facility] [place] [facility] [address] [id number] [place] [address] 2542 17 Mar, 2010 [facility] [id number], [place] [address]- 8282 17 Mar, 2010 [facility] [id number], [place] [address]- 6501 28 Feb, 2010 [facility] [id number], [place] [address]- 9673 Feb, [facility] [id number] [place] [address]- 7118 Feb, [facility] [id number], [place] [address]- 2052 Feb, [facility] [id number] [place] [address]- 6029 Dec, [facility] [id number], [place] [address]- 6817 Dec, [facility] [id number] [place] [address]- 3115 Oct, [facility] [id number], [place] [address]- 2639 Mar, [facility] [id number], [place] [address]- 3500 Mar, [facility] [id number], [place] [address]- 3718 September, IMMUNIZATIONS No Known Immunizations SOCIAL HISTORY Never Assessed REASON FOR VISIT EMR-[facility] PLAN OF CARE VITAL SIGNS MEDICATIONS Unknown [...]
--- OUTSIDE RECORDS SUMMARY | 2018-09-19 09:11 | XMS REPORT ---
Author Author Migration, Doctor Organization [facility] Address Unknown Phone Unavailable Care Team Providers Care Electronics Research Engineer Name Role Phone Migration, Doctor Unavailable Unavailable PROBLEMS Type Condition ICD9-CM Code [id number] Code Onset Dates Condition Status SNOMED Code Problem Hypokalemia E87.6 Active 787206666 Problem Generalized anxiety disorder F41.1 Active 02310024 Problem Pain in right knee M25.561 Active 67659518 Problem Right low back pain, with sciatica presence unspecified M54.5 Active 638026005 Problem Right foot pain M79.671 Active 96489242 Problem UTI symptoms R39.9 Active 78606271 Problem Essential hypertension I10 Active 35978196 Problem Gastroesophageal reflux disease without esophagitis K21.9 Active 563573574 Problem Weight decrease R63.4 Active 815775053 Problem Depression, unspecified depression type F32.9 Active 56261666 Problem Right upper quadrant abdominal pain R10.11 Active 883098958 Problem Tobacco abuse Z72.0 Active 14497182 Problem Insomnia, unspecified type G47.00 Active 251538752 Problem Weight loss R63.4 Active 834319015 Problem Post-traumatic stress disorder, chronic F43.12 Active 38928447 Problem Pulmonary emphysema, unspecified emphysema type J43.9 Active 14373366 Problem Neuropathy G62.9 Active 189288222 Problem Anxiety F41.9 Active 67862132 Problem Other emphysema J43.8 Active 18593469 Problem Other chronic pain G89.29 Active 44012757 Problem Chronic pain G89.29 Active 02570952 Problem Opioid use disorder, moderate, dependence F11.20 Active 29471845 Problem Back pain M54.9 Active 055666595 Problem Bone pain M89.8X9 Active 59642751 Problem Panic attacks F41.0 Active 859703278 Problem Kidney stones N20.0 Active 27091971 Problem Renal calculus, right N20.0 Active 12534381 Problem Generalized abdominal pain R10.84 Active 733563767 ALLERGIES No Information ENCOUNTERS Encounter Location Date Diagnosis [facility] [address] [address] Feb, [facility] [id number] [place] [address] 32888- 7132 Dec, [facility] [id number] [place] [address] 78134- 6111 Dec, [facility] [id number] [place] [address] 70245- 1464 Dec, Medicare welcome exam Z00.00 [facility] [id number] [place] [address] 42334- 4528 17 Nov, 2017 Opioid use disorder, moderate, dependence F11.20 [facility] [id number] [place] [address] 50420- 7522 16 Nov, 2017 Pelvic pain R10.2 ; Acute pyelonephritis N10 and Essential hypertension I10 [facility] [id number] [place] [address] 42249- 6595 28 Oct, 2017 Medicare welcome exam Z00.00 [facility] [id number] [place] [address] 01973- 3021 Oct, Gross hematuria R31.0 ; Urinary tract infection without hematuria, site unspecified N39.0 and Weakness R53.1 [facility] [address] [place] [address] 23803- 2911 Oct, [facility] [id number] [place] [address] 71810- 2957 Oct, [facility] [id number] [place] [address] 69074- 5059 Oct, Medicare welcome exam Z00.00 [facility] [id number] [place] [address] 33062- 7783 September, Back pain M54.9 and Right anterior knee pain M25.561 [facility] [id number] [place] [address] 75048- 1697 September, [facility] [address] [address] 4552 September, [facility] [id number] [place] [address] 83520- 9326 September, Essential hypertension I10 [facility] [id number] [place] [address] 66494- 6611 September, [facility] [id number] [place] [address] 61285- 2512 September, RLQ abdominal pain R10.31 ; Low back pain M54.5 and Other chronic pain G89.29 [facility] [id number] [place] [address] 48968- 7781 Aug, Medicare welcome exam Z00.00 [facility] [id number] [place] [address] 38143- 3341 Aug, [facility] [id number] [place] [address] 91159- 4772 Aug, Acute pyelonephritis N10 and Medicare welcome exam Z00.00 [facility] [id number] [place] [address] 49814 -7077 Aug, Dysuria R30.0 and Acute pyelonephritis N10 [facility] [address], [place] [address] 4068 Aug, [facility] [id number] [place] [address] 63181- 8070 Aug, [facility] [address] [place] [address] 58836- 3469 Aug, [facility] [address] [place] [address] 29598- 7452 Aug, [facility] [address] [address]- 6818 Jul, [facility] [id number] [place] [address] 49094- 0469 Jul, Renal calculus, right N20.0 and Medicare welcome exam Z00.00 [facility] [id number] [place] [address] 44914 -8949 Jul, Dysuria R30.0 and Renal calculus, right N20.0 [facility] [id number] [place] [address] 20990- 7433 Jul, Medicare welcome exam Z00.00 [facility] [id number] [place] [address] 35155- 0770 Jun, Gastroesophageal reflux disease without esophagitis K21.9 and Generalized abdominal pain R10.84 [facility] [id number] [place] [address] 23400- 2704 Jun, Medicare welcome exam Z00.00 [facility] [id number] [place] [address] 66129- 8797 Jun, [facility] [id number] [place] [address] 25994- 2439 Jun, Medicare welcome exam Z00.00 and Encounter for screening mammogram for malignant neoplasm of breast Z12.31 [facility] [id number] [place] [address] 32491- 7098 Jun, Chronic pain G89.29 [facility] [id number] [place] [address] 48793- 7911 May, [facility] [id number] [place] [address] 24441- 8387 May, Pelvic pain R10.2 [facility] [id number] [place] [address] 08135- 4136 May, Pelvic pain R10.2 [facility] [id number] [place] [address] 85655 -4601 May, Renal calculus, right N20.0 [facility] [address] [place] [address] 49996- 8981 May, Hematuria, unspecified type R31.9 and Nephrolithiasis N20.0 [facility] [id number] [place] [address] 24936 -8920 May, Dysuria R30.0 and Nephrolithiasis N20.0 [facility] [id number] [place] [address] 09970- 1599 May, [facility] [id number] [place] [address] 85893 -8470 May, Abdominal pain R10.9 and Kidney stone N20.0 [facility] [id number] [place] [address] 85467- 6485 May, [facility] [id number] [place] [address] 58887- 6928 May, Chronic pain G89.29 and Panic attacks F41.0 [facility] [id number] [place] [address] 55876- 1037 May, Urinary tract infection without hematuria, site unspecified N39.0 [facility] [id number] [place] [address] 46777- 3710 Apr, Right lower quadrant abdominal pain R10.31 and Abnormal serum lipase level R74.8 [facility] [id number] [place] [address] 91650- 5263 Apr, Recurrent urinary tract infection N39.0 [facility] [id number] [place] [address] 22140- 9561 Apr, UTI symptoms R39.9 ; Recurrent urinary tract infection N39.0 and Pelvic pain R10.2 [facility] [id number] [place] [address] 89858- 5735 Apr, Chronic pain G89.29 and Panic attacks F41.0 [facility] [id number] [place] [address] 93242- 9710 Apr, Dysuria R30.0 [facility] [id number] [place] [address] 64290- 7004 Apr, [facility] [id number] [place] [address] 46192- 6262 Apr, Dysuria R30.0 and Urinary tract infection without hematuria , site unspecified N39.0 [facility] [id number] [place] [address] 90491- 6410 Mar, UTI symptoms R39.9 [facility] [id number] [place] [address] 56143- 5233 Mar, [facility] [id number] [place] [address] 64580- 5763 Mar, Panic attacks F41.0 and Chronic pain G89.29 [facility] [address] 60042- 6170 Mar, [facility] [id number] [place] [address] 13891- 5210 Mar, Dysuria R30.0 [facility] [id number] [place] [address] 50709- 5866 Mar, Dysuria R30.0 [facility] [id number] [place] [address] 41641- 5743 Feb, Chronic pain G89.29 ; Shortness of breath R06.02 ; Weight loss R63.4 ; Encounter for immunization Z23 ; Bone pain M89.8X9 ; Right anterior knee pain M25.561 and Cough R05 [facility] [id number] [place] [address] 36762- 0971 Feb, Shortness of breath R06.02 [facility] [id number] [place] [address] 75077- 2161 Feb, [facility] [id number] [place] [address] 43079- 0166 Feb, Panic attacks F41.0 and Chronic pain G89.29 [place] [address] 63414- 9544 Feb, [facility] [address] 56580- 6216 04 Feb, 2017 Panic attacks F41.0 ; Shortness of breath R06.02 and Encounter for immunization Z23 [place] [address] 06175- 5784 Jan, [facility] [address] 47610- 1606 15 Jan, 2017 Anxiety F41.9 and Chronic pain G89.29 [place] [address] 59789- 5107 Dec, Anxiety F41.9 and Chronic pain G89.29 [place] [facility] [address] 30195- 0833 Nov, Chronic pain G89.29 [place] [address] 86559- 4112 Nov, Anxiety F41.9 [place] [address] 86554- 2225 Nov, Chronic pain G89.29 ; Essential hypertension I10 and Other emphysema J43.8 [facility] [id number] [place] [address] 27571- 9070 Oct, Anxiety F41.9 [place] [address] 03345- 9391 Oct, [facility] [address] 82348- 2439 Oct, Chronic pain G89.29 [place] [facility] [address] 79826- 0419 September, Recurrent UTI N39.0 ; Neuropathy G62.9 and Anxiety F41.9 [facility] [id number] [place] [address] 98374- 2828 September, [facility] [id number] [place] [address] 40022- 3048 September, Chronic pain G89.29 [facility] [id number] [place] [address] 65027- 8767 September, [facility] [address] 08135- 3908 Aug, Post-traumatic stress disorder, chronic F43.12 ; Chronic urinary tract infection N39.0 ; Gastroesophageal reflux disease without esophagitis K21.9 ; Chronic pain G89.29 ; Essential hypertension I10 and Tobacco abuse Z72.0 [facility] [id number] [place] [address] 21836 -0600 Aug, [facility] [address] 42124- 6765 Aug, Chronic pain G89.29 [facility] [address] 52100- 5175 Aug, Insomnia, unspecified type G47.00 [facility] [id number] [place] [address] 98601- 9421 Aug, [facility] [id number] [place] [address] 91199- 8807 Jul, Chronic pain G89.29 [facility] [id number] [place] [address] 08236- 0936 Jul, [facility] [address] 03971- 3489 Jul, [facility] [id number] [place] [address] 82197- 1400 Jul, [facility] [address] 14248- 1064 15 Jul, 2016 Recurrent UTI (urinary tract infection) N39.0 [facility] [address] [place] [address] 55587- 8330 14 Jul, 2016 [facility] [id number] [place] [address] 76729- 0640 27 Jun, 2016 Chronic pain G89.29 [facility] [id number] [place] [address] 87394- 6126 17 Jun, 2016 [facility] [id number] [place] [address] 91180- 9288 Jun, [facility] [id number] [place] [address] 89927- 2512 May, Chronic pain G89.29 [facility] [id number] [place] [address] 79182- 2463 May, Weight loss R63.4 and Shortness of breath R06.02 [facility] [id number] [place] [address] 48882- 7018 May, Chronic pain G89.29 ; Weight loss R63.4 and Tobacco abuse Z72.0 [facility] [address] [place] [address] 96959- 1620 May, [facility] [address] [place] [address] 75529- 4718 May, Hypoxia R09.02 [facility] [id number] [place] [address] 85094- 0254 May, [facility] [id number] [place] [address] 57792- 3102 May, Pulmonary emphysema, unspecified emphysema type J43.9 [facility] [address] [place] [address] 10104 -2373 May, [facility] [id number] [place] [address] 40856- 1154 May, [facility] [id number] [place] [address] 10616- 8055 May, [facility] [address] 03444- 1942 May, Chronic pain G89.29 ; Encounter for immunization Z23 ; Right anterior knee pain M25.561 and Cough R05 [facility] [address] 65828- 5668 Apr, Chronic pain G89.29 [facility] [id number] [place] [address] 38430- 0937 Apr, [facility] [address] 22705- 0612 Apr, Generalized anxiety disorder F41.1 and Depression, unspecified depression type F32.9 [place] [address] 34809- 4751 Apr, Chronic pain G89.29 ; Hypokalemia E87.6 and Insomnia, unspecified type G47.00 [facility] [id number] [place] [address] 83054- 8391 Apr, [facility] [id number] [place] [address] 98706- 7533 Apr, Chronic pain G89.29 [facility] [id number] [place] [address] 18264- 1550 Apr, [facility] [id number] [place] [address] 61457- 6628 Mar, [facility] [id number] [place] [address] 75255- 2667 Mar, Insomnia, unspecified type G47.00 [facility] [id number] [place] [address] 77100- 1964 Mar, Chronic pain G89.29 [facility] [id number] [place] [address] 97103- 7635 Mar, [facility] [address] [address]- 2370 Feb, [facility] [address], [place] [address]- 3079 Feb, [facility] [id number] [place] [address] 51939- 7559 Feb, [facility] [id number] [place] [address] 44911- 9227 Feb, [facility] [id number] [place] [address] 21856- 7983 Feb, [facility] [id number] [place] [address] 11414- 4010 29 Jan, 2016 [facility] [id number] [place] [address] 37944- 9319 26 Jan, 2015 [facility] [address] [address]- 7918 20 Jan, 2015 [facility] [id number] [place] [address] 19352- 6126 13 Jan, 2015 [facility] [address] [address]- 6018 12 Jan, 2016 [facility] [address] [place] [address] 79512- 3177 07 Jan, 2015 Chronic pain G89.29 [facility] [address] [address]- 3289 Jan, 2015 Chronic pain G89.29 and Fibromyalgia M79.7 [facility] [address], [place] [address]- 1522 Dec, Depression, unspecified depression type F32.9 and Generalized anxiety disorder 300.02 [facility] [address], [place] [address]- 7029 Dec, Dysthymia F34.1 ; Insomnia, unspecified type G47.00 and Chronic pain G89.29 [facility] [address] [facility] [id number] [place] [address] 73456- 5040 Dec, Chronic pain G89.29 [facility] [id number] [place] [address] 81712 2546 Dec, Insomnia, unspecified type G47.00 [facility] [address] [facility] [id number] [place] [address] 75689 2544 Dec, Fibromyalgia M79.7 and Chronic pain G89.29 [facility] [id number] [place] [address] 16322- 7436 Dec, [facility] [id number] [place] [address] 43653 2546 Dec, [facility] [id number] [place] [address] 90931- 3808 Dec, [facility] [id number] [place] [address] 01162 2546 Dec, [facility] [id number] [place] [address] 95008- 9484 Dec, Chronic pain G89.29 [facility] [id number] [place] [address] 11608 2541 Dec, [facility] [id number] [place] [address] 77884 2542 Dec, [facility] [id number] [place] [address] 66344 2546 Dec, [facility] [id number] [place] [address] 44743 2542 Dec, Chronic pain G89.29 and Dysthymia F34.1 [facility] [id number] [place] [address] 03037 2548 Nov, [facility] [id number] [place] [address] 65768- 7652 Nov, Hypokalemia E87.6 and Chronic pain G89.29 [place] [address] 07471- 7812 Nov, Back pain M54.9 and Pain in right knee M25.561 [place] [address] 88097- 9920 Nov, [place] [address] 87172- 0949 Nov, Chronic pain G89.29 [place] [address] 73965- 0208 Nov, Chronic pain G89.29 ; Weight loss R63.4 ; Bone pain M89.8X9 and Insomnia, unspecified type G47.00 [place] [address] 89744- 7837 Nov, Chronic pain G89.29 [place] [address] 29664- 1456 Nov, Chronic pain G89.29 [place] [address] 37099- 3189 30 Oct, 2015 Chronic pain G89.29 [place] [id number] [place] [address] 96621- 5099 Oct, UTI symptoms R39.9 [facility] [id number] [place] [address] 45076- 1281 27 Oct, 2015 Chronic pain G89.29 [place] [address] 91720- 5252 20 Oct, 2015 Chronic pain G89.29 [place] [id number] [place] [address] 80878- 8424 13 Oct, 2015 Chronic pain G89.29 [place] [address] [address]- 2766 Oct, Right upper quadrant abdominal pain R10.11 [facility] [address] [address] Oct, Chronic pain G89.29 [facility] ([facility] [address] [address] Oct, [facility] ([facility] [id number] [place] [address] 63650- 9486 September, Chronic pain G89.29 [facility] ([facility] [id number] [place] [address] 34032- 5622 September, Dysuria R30.0 and Urinary tract infection without hematuria , site unspecified N39.0 [facility] [id number] [place] [address] 78606- 4966 September, [facility] ([facility] [id number] [place] [address] 92428- 3308 September, Dysuria R30.0 [facility] ([facility] [id number] [place] [address] 00418- 6384 September, Chronic pain G89.29 [facility] ([facility] [id number] [place] [address] 46536- 5877 September, Chronic pain G89.29 and Essential hypertension I10 [facility] [address] [address] September, [facility] [id number] [place] [address] 16224- 7421 September, [facility] [id number] [place] [address] 16966- 6686 September, [facility] [id number] [place] [address] 75611- 0110 Aug, UTI symptoms R39.9 [facility] [address] [address] Aug, Dysuria R30.0 [facility] [address] [address] Aug, [facility] [id number] [place] [address] 68716- 8487 Aug, [facility] [id number] [place] [address] 57319- 8501 Aug, [facility] [id number] [place] [address] 60326- 8077 Aug, Chronic pain G89.29 [facility] [id number] [place] [address] 25860- 5676 Aug, Dysthymia F34.1 [facility] [id number] [place] [address] 61916- 7270 Aug, Conjunctivitis, unspecified conjunctivitis type, unspecified laterality H10.9 [facility] [id number] [place] [address] 65187- 5323 Jul, Chronic pain G89.29 ; Back pain M54.9 ; Tobacco abuse Z72.0 and Weight decrease R63.4 [facility] [id number] [place] [address] 29593- 2624 Jul, [facility] [id number] [place] [address] 65284- 2714 Jul, [facility] [id number] [place] [address] 57842- 2890 24 Jul, 2015 Chronic pain G89.29 [facility] [address] [address] 3523 Jul, [facility] [id number] [place] [address] 75885- 2426 Jul, [facility] [id number] [place] [address] 80670- 2287 Jul, [facility] [id number] [place] [address] 58536- 6162 17 Jul, 2015 [facility] [address] [address] 5813 17 Jul, 2015 Chronic pain G89.29 [facility] [address] [address] 5559 16 Jul, 2015 Chronic pain G89.29 [facility] [id number] [place] [address] 20648- 3835 15 Jul, 2015 [facility] [id number] [place] [address] 48090- 2759 Jul, [facility] [id number] [place] [address] 58321- 2355 Jul, [facility] [id number] [place] [address] 18943- 7535 Jul, [facility] [id number] [place] [address] 11022- 8984 Jun, [facility] [id number] [place] [address] 98532- 7512 Jun, Depression, unspecified depression type F32.9 [facility] [id number] [place] [address] 32147- 1767 Jun, Pain in right knee M25.561 [facility] [address] [place] [address] 49361- 1261 24 Jun, 2015 Chronic pain G89.29 ; Back pain M54.9 ; Bone pain M89.8X9 and Weight loss R63.4 [facility] [id number] [place] [address] 27609- 8405 Jun, [facility] [id number] [place] [address] 74458- 2184 May, [facility] [address] [address] 7103 May, UTI symptoms R39.9 ; Pain in right knee M25.561 ; Right low back pain, with sciatica presence unspecified M54.5 ; Right foot pain M79.671 ; Hypokalemia E87.6 and Screening, lipid Z13.220 [facility] [id number] [place] [address] 97200- 7838 May, [facility] [id number] [place] [address] 24411- 9223 May, [facility] [id number] [place] [address] 69822- 2009 Mar, [facility] [id number] [place] [address] 11401- 5331 Mar, [facility] [id number] [place] [address] 50737- 7706 Mar, Hypokalemia E87.6 [facility] [address] [address]678- 2035 Mar, Pain in right leg M79.604 ; Encounter for immunization Z23 ; Pain in right knee M25.561 and Hypokalemia E87.6 [facility] [id number] [place] [address] 66196- 4336 Jan, [facility] [id number] [place] [address] 07710- 1923 Jan, [facility] [id number] [place] [address] 17484 2548 Jan, Abdominal pain, generalized 789.07 [facility] [id number] [place] [address] 66903 2543 Jan, Abdominal pain, generalized 789.07 [facility] [id number] [place] [address] 60023- 5072 Dec, [facility] [id number] [place] [address] 72374- 4627 Dec, [facility] [address] [address]- 2626 Dec, [facility] [id number] [place] [address] 49478- 4569 Nov, Hallux valgus 735.0 and Hammertoe 735.4 [facility] [address] [address]- 3386 Nov, [facility] [id number] [place] [address] 76849- 5904 Nov, Hallux valgus 735.0 and Hammer toe 735.4 [facility] [id number] [place] [address] 04146- 0306 Oct, [facility] [id number] [place] [address] 63175- 5036 Oct, [facility] [id number] [place] [address] 24780- 7808 Oct, Pre-op evaluation V72.84 [facility] [address] [address]- 2746 Oct, [facility] [id number] [place] [address] 19349- 8927 Oct, [facility] [address] [address]- 2355 September, [facility] [address] [address] 2546 September, [facility] [id number] [address]- 4118 September, Hallux valgus (acquired) 735.0 and Other hammer toe ( acquired) 735.4 [facility] [address] [address]- 2546 Aug, [facility] [id number] [place] [address] 97272- 8302 Aug, [facility] [place] [facility] [address] [id number] [place] [address]- 9885 Jul, [facility] [place] [facility] [address] [id number] [place] [address]- 9449 Jul, [facility] [place] [facility] [address] [id number] [place] [address]- 9528 Jul, [facility] [place] [facility] [address] [id number] [place] [address]- 2531 Jul, [facility] [place] [facility] [address] [id number] [place] [address]- 3844 Jul, [facility] [place] [facility] [address] [id number] [place] [address]- 9078 Jul, [facility] [place] [facility] [address] [facility] [id number] [place] [address]- 5912 Jul, [facility] [place] [facility] [address] [id number] [place] [address]- 4137 Jul, [facility] [place] [facility] [address] [id number] [place] [address]- 4776 Jun, [facility] [place] [facility] [address] [facility] [id number] [place] [address]- 6187 Jun, [facility] [place] [facility] [address] [id number] [place] [address]- 5156 Jun, 2014 [facility] [place] [facility] [address] [id number] [place] [address]- 0586 Jun, [facility] [place] [facility] [address] [id number] [place] [address]- 9366 Jun, [facility] [place] [facility] [address] [id number] [place] [address]- 9345 Jun, [facility] [place] [facility] [address] [facility] [id number] [place] [address]- 4009 Jun, [facility] [place] [facility] [address] [id number] [place] [address]- 6586 Jun, [facility] [address] [id number] [place] [address]- 2025 Jun, [facility] [place] [facility] [address] [id number] [place] [address]- 4296 Jun, [facility] [place] [facility] [address] [id number] [place] [address]- 7592 May, [facility] [place] [facility] [address] [id number] [place] [address]- 1014 May, [facility] [place] [facility] [address] [id number] [place] [address]- 7044 May, [facility] [place] [facility] [address] [id number] [place] [address]- 0743 May, [facility] [place] [facility] [address] [id number] [place] [address]- 5182 May, [facility] [address] [id number] [place] [address]- 4983 May, [facility] [place] [facility] [address] [id number] [place] [address]- 5861 May, [facility] [place] [facility] [address] [id number] [place] [address]- 2615 May, [facility] [place] [facility] [address] [id number] [place] [address]- 1835 May, [facility] [place] [facility] [address] [id number] [place] [address]- 9197 May, [facility] [place] [facility] [address] [id number] [place] [address]- 4418 May, [facility] [place] [facility] [address] [id number] [place] [address]- 0626 May, [facility] [place] [facility] [address] [id number] [place] [address]- 6649 May, [facility] [place] [facility] [address] [id number] [place] [address]- 3156 May, [facility] [place] [facility] [address] [id number] [place] [address]- 9329 May, [facility] [place] [facility] [address] [id number] [place] [address]- 5185 May, [facility] [place] [facility] [address] [id number] [place] [address]- 1761 May, [facility] [place] [facility] [address] [id number] [place] [address]- 8086 May, [facility] [place] [facility] [address] [id number] [place] [address]- 6877 Apr, [facility] [place] [facility] [address] [id number] [place] [address]- 8983 Apr, [facility] [place] [facility] [address] [id number] [place] [address]- 6905 Apr, [facility] [place] [facility] [address] [id number] [place] [address]- 4362 Apr, [facility] [place] [facility] [address] [id number] [place] [address]- 2237 Apr, [facility] [place] [facility] [address] [id number] [place] [address]- 9317 Apr, [facility] [place] [facility] [address] [id number] [place] [address]- 4514 Apr, [facility] [place] [facility] [address] [id number] [place] [address]- 3036 Apr, [facility] [place] [facility] [address] [id number] [place] [address]- 0327 Apr, [facility] [place] [facility] [address] [id number] [place] [address]- 7036 Mar, [facility] [place] [facility] [address] [id number] [place] [address]- 2345 Mar, [facility] [place] [facility] [address] [id number] [place] [address]- 9055 Mar, [facility] [place] [facility] [address] [id number] [place] [address]- 2579 Mar, [facility] [place] [facility] [address] [id number] [place] [address]- 9852 Mar, [facility] [place] [facility] [address] [id number] [place] [address]- 3543 Feb, [facility] [place] [facility] [address] [id number] [place] [address]- 0567 Feb, [facility] [place] [facility] [address] [id number] [place] [address]- 9871 Feb, [facility] [place] [facility] [address] [id number] [place] [address]- 3114 Feb, [facility] [place] [facility] [address] [id number] [place] [address]- 8420 Feb, [facility] [place] [facility] [address] [id number] [place] [address]- 5779 Feb, [facility] [place] [facility] [address] [id number] [place] [address]- 7019 Feb, [facility] [place] [facility] [address] [id number] [place] [address]- 7549 Feb, [facility] [place] [facility] [address] [id number] [address]- 1796 Feb, [facility] [place] [facility] [address] [id number] 9897 Feb, [facility] [place] [facility] [address] [id number], [place] [address]- 5318 Feb, [facility] [place] [facility] [address] [id number] 8859 Feb, [facility] [place] [facility] [address] [id number] [place] [address]- 2734 07 Feb, 2013 [facility] [place] [facility] [address] [id number] [place] [address]- 6867 Feb, [facility] [place] [facility] [address] [id number] [place] [address]- 1239 Feb, 2013 [facility] [place] [facility] [address] [id number] [place] [address]- 9849 Feb, [facility] [place] [facility] [address] [id number] [place] [address]- 6129 Jan, 2013 [facility] [place] [facility] [address] [id number] [place] [address]- 5619 23 Jan, 2013 [facility] [place] [facility] [address] [id number] [place] [address]- 2964 20 Jan, 2014 [facility] [place] [facility] [address] [id number] [place] [address]- 3075 19 Jan, 2013 [facility] [place] [facility] [address] [id number] [place] [address]- 8606 11 Jan, 2014 [facility] [place] [facility] [address] [id number] [place] [address]- 2317 Jan, [facility] [place] [facility] [address] [id number] [place] [address]- 2712 Jan, [facility] [place] [facility] [address] [id number] [place] [address]- 7142 Jan, 2013 [facility] [place] [facility] [address] [id number] [place] [address]- 7057 Dec, [facility] [place] [facility] [address] [id number] [place] [address]- 2466 Dec, [facility] [place] [facility] [address] [id number] [place] [address]- 5501 Nov, [facility] [place] [facility] [address] [id number] [place] [address]- 6468 Nov, [facility] [place] [facility] [address] [id number] [place] [address]- 1035 Nov, [facility] [place] [facility] [address] [id number] [place] [address]- 9905 Nov, [facility] [place] [facility] [address] [id number] [place] [address]- 5255 Nov, [facility] [place] [facility] [address] [id number] [place] [address]- 5163 Nov, [facility] [place] [facility] [address] [id number] [place] [address]- 2466 Nov, [facility] [place] [facility] [address] [id number] [place] [address]- 3480 Nov, [facility] [place] [facility] [address] [id number] [place] [address]- 6742 Nov, [facility] [place] [facility] [address] [id number] [place] [address]- 6120 Oct, [facility] [place] [facility] [address] [id number] [place] [address]- 4914 Oct, [facility] [place] [facility] [address] [id number] [place] [address]- 3933 Oct, [facility] [place] [facility] [address] [id number] [place] [address]- 1667 Oct, [facility] [place] [facility] [address] [id number] [place] [address]- 3297 Oct, [facility] [place] [facility] [address] [id number] [place] [address]- 7517 Oct, [facility] [place] [facility] [address] [id number] [place] [address]- 8386 September, [facility] [place] [facility] [address] [id number] [place] [address]- 6599 September, [facility] [place] [facility] [address] [id number] [place] [address]- 5886 September, [facility] [address] [id number] [place] 5699 September, [facility] [address] [id number] [place] [address]- 3490 September, [facility] [address] [id number] [place] [address]- 4032 September, [facility] [address] [id number] [place] [address]- 3882 September, [facility] [address] [id number] [place] 5383 September, [facility] [address] [id number] [place] [address]- 6867 September, [facility] [address] [id number] [place] [address]- 7706 September, [facility] [address] [id number] [place] [address]- 1548 September, [facility] [address] [id number] [place] [address]- 5834 September, [facility] [address] [id number] [place] [address]- 6529 September, [facility] [address] [id number] [place] [address]- 2233 September, [facility] [address] [id number] [place] [address]- 1258 September, [facility] [place] [facility] [address] [id number] [place] 1276 September, [facility] [place] [facility] [address] [id number] [place] 8511 September, [facility] [address] [id number] [place] [address]- 1562 September, [facility] [place] [facility] [address] [id number] [place] [address]- 7131 September, [facility] [place] [facility] [address] [id number] [place] [address]- 7493 September, [facility] [place] [facility] [address] [id number] [place] [address]- 6711 Aug, [facility] [place] [facility] [address] [id number] [place] [address]- 7551 Aug, [facility] [place] [facility] [address] [id number] [place] [address]- 9001 Aug, [facility] [place] [facility] [address] [id number] [place] [address]- 1142 Aug, [facility] [place] [facility] [address] [id number] [place] [address]- 1151 Aug, [facility] [place] [facility] [address] [id number] [place] [address]- 7174 Aug, [facility] [place] [facility] [address] [id number] [place] [address]- 0142 Aug, [facility] [place] [facility] [address] [id number] [place] [address]- 4944 Aug, [facility] [place] [facility] [address] [id number] [place] [address]- 4902 Aug, [facility] [place] [facility] [address] [id number] [place] [address]- 4247 Aug, [facility] [place] [facility] [address] [id number] [place] [address]- 7074 Aug, [facility] [place] [facility] [address] [id number] [place] [address]- 1708 Aug, [facility] [place] [facility] [address] [id number] [place] [address]- 8458 Aug, [facility] [place] [facility] [address] [id number] [place] [address]- 4246 Aug, [facility] [place] [facility] [address] [id number] [place] [address]- 8217 Aug, [facility] [place] [facility] [address] [id number] [place] [address]- 4959 Jul, [facility] [place] [facility] [address] [id number] [place] [address]- 8136 Jul, [facility] [place] [facility] [address] [id number] [place] [address]- 4162 Jul, [facility] [place] [facility] [address] [id number] [place] [address] Jul, [facility] [place] [facility] [address] [id number] [place] [address] Jul, [facility] [place] [facility] [address] [id number] [place] [address] Jul, [facility] [place] [facility] [address] [id number] [place] [address] Jul, [facility] [place] [facility] [address] [id number] [place] [address] Jul, [facility] [place] [facility] [address] [id number] [place] [address] Jul, [facility] [place] [facility] [address] [id number] [place] [address] Jul, [facility] [place] [facility] [address] [id number] [place] [address] Jul, [facility] [place] [facility] [address] [id number] [place] [address] Jul, [facility] [place] [facility] [address] [id number] [place] [address] 1469 Jul, [facility] [place] [facility] [address] [id number] [place] [address] Jul, [facility] [place] [facility] [address] [id number] [place] [address] Jul, [facility] [place] [facility] [address] [id number] [place] [address] Jun, [facility] [place] [facility] [address] [id number] [place] [address] Jun, [facility] [place] [facility] [address] [id number] [place] [address] 1126 Jun, [facility] [place] [facility] [address] [id number] [place] [address] 9098 Jun, [facility] [place] [facility] [address] [id number] [place] [address] 4668 Jun, [facility] [place] [facility] [address] [id number] [place] [address] 5869 Jun, [facility] [place] [facility] [address] [id number] [place] [address] May, [facility] [place] [facility] [address] [id number] [place] [address] May, [facility] [place] [facility] [address] [id number] [place] [address] May, [facility] [place] [facility] [address] [id number] [place] [address] May, [facility] [place] [facility] [address] [id number] [place] [address] May, [facility] [place] [facility] [address] [id number] [place] [address] 1984 May, [facility] [place] [facility] [address] [id number] [place] [address] May, [facility] [place] [facility] [address] [id number] [place] [address]646 May, [facility] [place] [facility] [address] [id number] [place] [address] May, [facility] [address] [id number] [place] [address] May, [facility] [place] [facility] [address] [id number] [place] [address] May, [facility] [place] [facility] [address] [id number] [place] [address] May, [facility] [place] [facility] [address] [id number] [place] [address]797 May, [facility] [place] [facility] [address] [id number] [place] [address] 8090 May, [facility] [place] [facility] [address] [id number] [place] [address] 78[address] May, [facility] [place] [facility] [address] [id number] [place] [address] Apr, [facility] [place] [facility] [address] [id number] [place] [address] 65[address] Apr, [facility] [place] [facility] [address] [id number] [place] [address] Apr, [facility] [place] [facility] [address] [id number] [place] [address]- [address]26 Apr, [facility] [place] [facility] [address] [id number] [place] [address]598 Apr, [facility] [place] [facility] [address] [id number] [place] [address]- 8668 Apr, [facility] [place] [facility] [address] [id number] [place] [address] Apr, [facility] [place] [facility] [address] [id number] [place] [address]- [address] Apr, [facility] [place] [facility] [address] [id number] [place] [address] 8440 Apr, [facility] [place] [facility] [address] [id number] [place] [address] Apr, [facility] [address] [id number] [place] [address] Mar, [facility] [address] [id number] [place] [address]861 Mar, [facility] [address] [id number] [place] [address]- [address] Mar, [facility] [address] [id number] [place] [address]- [address] Mar, [facility] [address] [id number] [place] [address]- 9340 Mar, [facility] [address] [id number] [place] [address]- 9[address] Mar, [facility] [address] [id number] [place] [address]- 1846 Mar, [facility] [address] [id number] [place] [address]- 2956 Mar, [facility] [address] [id number] [place] [address] 2867 Mar, [facility] [address] [id number] [place] [address]483 Mar, [facility] [address] [id number] [place] [address]220 Mar, [facility] [address] [id number] [place] [address]358 Mar, [facility] [place] [facility] [address] [id number] [place] [address] 6824 Mar, [facility] [place] [facility] [address] [id number] [place] [address]- 6617 Mar, [facility] [address] [id number] [place] [address]- 2478 Mar, [facility] [place] [facility] [address] [id number] [place] [address]- [address]008 18 Mar, 2013 [facility] [place] [facility] [address] [id number] [place] [address]- [address]287 Mar, [facility] [place] [facility] [address] [id number] [place] [address]- 4041 Mar, [facility] [place] [facility] [address] [id number] [place] [address]- 9808 Mar, [facility] [place] [facility] [address] [id number] [place] [address]- 0936 Mar, [facility] [place] [facility] [address] [id number] [place] [address]- 2917 Mar, [facility] [place] [facility] [address] [id number] [place] [address] Mar, [facility] [place] [facility] [address] [id number] [address] Mar, [facility] [place] [facility] [address] [id number] [address] 7974 Feb, [facility] [place] [facility] [address] [id number] [address] 4[address] Feb, [facility] [place] [facility] [address] [id number] [address] 8969 Feb, [facility] [place] [facility] [address] [id number] [address] 72[address] 16 Feb, 2013 [facility] [place] [facility] [address] [id number] [address] 5817 15 Feb, 2013 [facility] [place] [facility] [address] [id number] [address] 18[address] Feb, [facility] [place] [facility] [address] [facility] [id number], [place] [address] Feb, [facility] [place] [facility] [address] [id number] [address] 6412 Feb, [facility] [address] [id number] [place] [address] 0393 Feb, [facility] [place] [facility] [address] [id number] [place] [address]- 2657 Feb, [facility] [place] [facility] [address] [id number] [place] [address]- 1370 30 Jan, 2013 [facility] [place] [facility] [address] [id number] [place] [address] 2788 26 Jan, 2013 [facility] [place] [facility] [address] [id number] [place] [address] 4018 24 Jan, 2013 [facility] [place] [facility] [address] [id number] [place] [address]- 6017 23 Jan, 2013 [facility] [place] [facility] [address] [id number] [place] [address]- 5999 17 Jan, 2013 [facility] [place] [facility] [address] [id number] [place] [address]- 9230 Dec, [facility] [place] [facility] [address] [id number] [place] [address]- 0195 Dec, [facility] [place] [facility] [address] [id number] [place] [address]- 9061 Dec, [facility] [place] [facility] [address] [id number] [place] [address]- 3184 15 Dec, 2012 [facility] [place] [facility] [address] [id number] [place] [address]- 0212 14 Dec, 2012 [facility] [place] [facility] [address] [id number] [place] [address]- 0051 Dec, [facility] [place] [facility] [address] [id number] [place] [address]- 1219 Dec, [facility] [place] [facility] [address] [id number] [place] [address]- 9251 Nov, [facility] [place] [facility] [address] [id number] [place] [address]- 2546 16 Nov, 2012 [facility] [address] [id number] [place] [address]- 0956 15 Nov, 2012 [facility] [place] [facility] [address] [id number] [place] [address]- 2546 05 Nov, 2012 [facility] [address] [id number] [place] [address]- 2546 Nov, [facility] [place] [facility] [address] [id number] [place] [address]- 4816 Oct, [facility] [address] [id number] [place] [address]- 1436 Oct, [facility] [place] [facility] [address] [id number] [place] [address]- 2546 Oct, [facility] [address] [id number] [place] [address] 2566 September, [facility] [address] [id number] [place] [address] 2630 September, [facility] [address] [id number] [place] [address]- 8246 September, [facility] [address] [id number] [place] [address]- 2646 September, [facility] [place] [facility] [address] [id number] [place] [address]- 3716 September, [facility] [address] [id number] [place] [address]- 2546 September, [facility] [place] [facility] [address] [id number] [place] [address]- 2546 September, [facility] [place] [facility] [address] [id number] [place] [address]- 2546 Aug, [facility] [place] [facility] [address] [id number] [place] [address]- 9219 23 Aug, 2012 [facility] [place] [facility] [address] [id number] [place] [address]- 0949 11 Aug, 2012 [facility] [place] [facility] [address] [id number] [place] [address]- 0714 29 Jul, 2012 [facility] [place] [facility] [address] [id number] [place] [address]- 4151 27 Jul, 2012 [facility] [place] [facility] [address] [id number] [place] [address]- 1602 26 Jul, 2012 [facility] [place] [facility] [address] [id number] [place] [address]- 5542 20 Jul, 2012 [facility] [place] [facility] [address] [id number] [place] [address]- 0237 18 Jul, 2012 [facility] [place] [facility] [address] [facility] [id number] [place] [address]- 3730 18 Jul, 2012 [facility] [place] [facility] [address] [id number] [place] [address]- 4307 13 Jul, 2012 [facility] [place] [facility] [address] [id number] [place] [address]- 0702 28 Jun, 2012 [facility] [place] [facility] [address] [facility] [id number] [place] [address]- 8673 27 Jun, 2012 [facility] [place] [facility] [address] [facility] [id number] [place] [address]- 7405 22 Jun, 2012 [facility] [place] [facility] [address] [id number] [place] [address]- 3039 20 Jun, 2012 [facility] [place] [facility] [address] [id number] [place] [address]- 5081 15 Jun, 2012 [facility] [place] [facility] [address] [id number] [place] [address]- 7076 15 Jun, 2012 [facility] [place] [facility] [address] [facility] [id number] [place] [address]- 2719 13 Jun, 2012 [facility] [place] [facility] [address] [id number] [place] [address]- 5566 Jun, [facility] [address] [id number] [place] [address]- 4176 Jun, [facility] [place] [facility] [address] [id number] [place] [address]- 2546 Jun, [facility] [address] [id number] [place] [address]- 5636 May, [facility] [place] [facility] [address] [id number] [place] [address] 2549 May, [facility] [address] [id number] [place] [address]- 9646 May, [facility] [address] [id number] [place] [address]- 9611 May, [facility] [address] [id number] [place] [address]- 6847 May, [facility] [address] [id number] [place] [address]- 0021 May, [facility] [address] [id number] [place] [address]- 9118 31 Apr, 2012 [facility] [address] [id number] [place] [address] 2546 31 Apr, 2012 [facility] [address] [id number] [place] [address] 2546 Apr, [facility] [place] [facility] [address] [id number] [place] [address] 254 28 Apr, 2012 [facility] [place] [facility] [address] [id number] [place] [address] 2546 26 Apr, 2012 [facility] [place] [facility] [address] [id number] [place] [address]- 2546 20 Apr, 2012 [facility] [place] [facility] [address] [id number] [place] [address]- 2695 Apr, [facility] [place] [facility] [address] [id number] [place] [address]- 4186 Mar, [facility] [place] [facility] [address] [id number] [place] [address]- 3458 Mar, [facility] [place] [facility] [address] [facility] [id number] [place] [address]- 1248 Mar, [facility] [place] [facility] [address] [id number] [place] [address]- 4465 Mar, [facility] [place] [facility] [address] [id number] [place] [address]- 3314 Mar, [facility] [place] [facility] [address] [id number], [place] [address]- 9069 Mar, [facility] [place] [facility] [address] [id number] [place] [address]- 9683 Mar, [facility] [place] [facility] [address] [id number], [place] [address]- 1168 Mar, [facility] [place] [facility] [address] [id number], [place] [address]- 6847 Mar, [facility] [place] [facility] [address] [id number] [address]- 1552 Mar, [facility] [place] [facility] [address] [id number], [place] [address]- 6526 Mar, [facility] [place] [facility] [address] [id number], [place] [address]- 6973 Mar, [facility] [place] [facility] [address] [id number] [address]- 5888 Mar, [facility] [place] [facility] [address] [facility] [id number], [place] [address]- 1985 Mar, [facility] [place] [facility] [address] [facility] [id number] [address]- 4975 Mar, [facility] [place] [facility] [address] [id number] [place] [address]- 2144 Mar, [facility] [place] [facility] [address] [id number] [place] [address]- 9685 Mar, [facility] [place] [facility] [address] [id number] [place] [address]- 8672 Feb, [facility] [place] [facility] [address] [id number] [place] [address]- 5773 Feb, 2011 [facility] [place] [facility] [address] [id number] [place] [address]- 7312 Feb, [facility] [place] [facility] [address] [id number] [place] [address]- 2841 Feb, [facility] [place] [facility] [address] [id number] [place] [address]- 8731 Feb, [facility] [place] [facility] [address] [id number] [place] [address]- 8209 Feb, [facility] [place] [facility] [address] [id number] [place] [address]- 7847 Feb, [facility] [place] [facility] [address] [id number] [place] [address]- 4680 Feb, [facility] [place] [facility] [address] [facility] [id number] [place] [address]- 4756 Feb, [facility] [place] [facility] [address] [id number] [place] [address]- 1768 Feb, [facility] [place] [facility] [address] [id number] [place] [address]- 4776 Feb, [facility] [place] [facility] [address] [id number] [place] [address]- 6122 27 Jan, 2011 [facility] [place] [facility] [address] [id number] [place] [address]- 0998 25 Jan, 2012 [facility] [place] [facility] [address] [id number] [place] [address]- 7344 13 Jan, 2012 [facility] [place] [facility] [address] [id number] [place] [address]- 4502 12 Jan, 2012 [facility] [place] [facility] [address] [id number] [place] [address]- 4857 Jan, [facility] [place] [facility] [address] [id number] [place] [address]- 8103 Dec, [facility] [place] [facility] [address] [id number] [place] [address]- 6160 Dec, [facility] [place] [facility] [address] [id number] [place] [address]- 0794 Dec, [facility] [place] [facility] [address] [id number] [place] [address]- 7074 Dec, [facility] [place] [facility] [address] [id number] [place] [address]- 6466 Dec, [facility] [place] [facility] [address] [id number] [place] [address]- 0355 Dec, [facility] [place] [facility] [address] [id number] [place] [address]- 0847 Dec, [facility] [place] [facility] [address] [id number] [place] [address]- 6275 Dec, [facility] [place] [facility] [address] [id number] [place] [address]- 0391 Nov, [facility] [place] [facility] [address] [id number] [place] [address]- 9867 Nov, [facility] [place] [facility] [address] [id number] [place] [address]- 0816 Nov, [facility] [place] [facility] [address] [id number] [place] [address]- 6568 Nov, [facility] [place] [facility] [address] [id number] [place] [address]- 5033 Nov, [facility] [place] [facility] [address] [id number] [place] [address]- 6170 Oct, [facility] [address] [id number] [place] [address]87 Oct, [facility] [place] [facility] [address] [id number] [place] [address]- 0082 September, [facility] [address] [id number] [place] [address]- 1026 September, [facility] [place] [facility] [address] [id number] [place] [address]- 0128 September, [facility] [address] [id number] [place] [address]- 6195 September, [facility] [place] [facility] [address] [id number] [place] [address]- 3607 September[facility] [address] [id number] [place] [address]- 4534 September, [facility] [place] [facility] [address] [id number] [place] [address]- 4556 September, [facility] [place] [facility] [address] [id number] [place] [address]- 1534 September, [facility] [place] [facility] [address] [id number] [place] [address]- 0867 September, [facility] [place] [facility] [address] [id number] [place] [address]- 2734 September, [facility] [place] [facility] [address] [id number] [place] [address]- 6004 September, [facility] [place] [facility] [address] [id number] [place] [address]- 9871 September, [facility] [place] [facility] [address] [id number] [place] [address]- 7428 September, [facility] [place] [facility] [address] [id number] [place] [address]- 1012 September, [facility] [place] [facility] [address] [id number] [place] [address]- 8301 24 Aug, 2011 [facility] [address] [id number] [place] [address]- 4588 20 Aug, 2011 [facility] [address] [id number] [place] [address]- 0546 13 Aug, 2011 [facility] [address] [id number] [place] [address]- 5878 11 Aug, 2011 [facility] [address] [id number] [place] [address]- 4716 23 Jul, 2011 [facility] [address] [id number] [place] [address]- 4929 13 Jul, 2011 [facility] [address] [id number] [place] [address]- 4855 13 Jul, 2011 [facility] [address] [id number] [place] [address]- 3526 28 Jun, [address] [facility] [address] [id number] 26 Jun, 2011 [facility] [address] [id number] [place] [address]- 6073 13 Jun, 2011 [facility] [address] [id number] [place] [address]- 5547 10 Jun, 2011 [facility] [address] [id number] [place] [address]- 5846 07 Jun, 2011 [facility] [address] [id number] [place] [address]- 0066 07 Jun, 2011 [facility] [place] [facility] [address] [id number] [place] [address]- 6476 03 Jun, 2011 [facility] [place] [facility] [address] [id number] [place] [address]- 0956 02 Jun, 2011 [facility] [place] [facility] [address] [id number] [place] [address]- 5391 31 May, 2011 [facility] [address] [id number] [place] [address]- 3169 30 May, 2011 [facility] [address] [id number] [place] [address]- 5318 May, [facility] [address] [id number] [place] [address]- 6289 May, [facility] [address] [id number] [place] [address]- 0690 May, [facility] [address] [id number] [place] [address]- 7232 May, [facility] [address] [id number] [place] [address]- 4302 May, [facility] [address] [id number] [place] [address]- 6576 May, [facility] [place] [facility] [address] [id number] [place] [address]- 8239 May, [facility] [address] [id number] [place] [address]- 1839 May, [facility] [place] [facility] [address] [id number] [place] [address]- 4736 May, [facility] [address] [id number], [place] [address]- 7403 May, [facility] [place] [facility] [address] [id number] [address]- 5032 May, [facility] [place] [facility] [address] [id number] [place] [address]- 0226 May, [facility] [place] [facility] [address] [id number] [place] [address]- 4194 30 Apr, 2011 [facility] [place] [facility] [address] [id number] [place] [address]- 3148 16 Apr, 2011 [facility] [place] [facility] [address] [id number] [place] [address]- 5158 05 Apr, 2011 [facility] [place] [facility] [address] [id number] [place] [address]- 7976 17 Mar, 2011 [facility] [place] [facility] [address] [id number] [place] [address] 2546 Mar, [facility] [place] [facility] [address] [id number] [place] [address]- 0726 31 Feb, 2011 [facility] [place] [facility] [address] [id number] [place] [address] 2546 26 Feb, 2011 [facility] [place] [facility] [address] [id number] [place] [address]- 9354 Feb, [facility] [place] [facility] [address] [id number] [place] [address]- 2606 20 Feb, 2011 [facility] [place] [facility] [address] [id number] [place] [address]- 2397 13 Feb, 2011 [facility] [place] [facility] [address] [id number] [place] [address]- 8683 28 Apr, 2010 [facility] [place] [facility] [address] [id number] [place] [address] 2546 22 Apr, 2010 [facility] [place] [facility] [address] [facility] [id number] [place] [address] 2548 16 Apr, 2010 [facility] [place] [facility] [address] [id number] [place] [address] 2546 15 Apr, 2010 [facility] [place] [facility] [address] [id number] [place] [address] 2546 15 Apr, 2010 [facility] [place] [facility] [address] [id number] [place] [address] 2546 Apr, [facility] [place] [facility] [address] [id number] [place] [address] 2546 24 Mar, 2010 [facility] [place] [facility] [address] [id number] [place] [address] 2543 17 Mar, 2010 [facility] [address] [address]- 0916 17 Mar, 2010 [facility] [id number], [place] [address]- 9713 28 Feb, 2010 [facility] [address] [address] Feb, [facility] [id number] [place] [id number] Feb, [facility] ([facility] [id number] [address] Feb, [facility] ([facility] [id number] [place] [address] Dec, [facility] ([facility] [id number] [address] Dec, [facility] ([facility] [id number] [place] [address] Oct, [facility] ([facility] [address] [address] Mar, [facility] ([facility] [address] [address] Mar, [facility] ([facility] [address] [address] September, IMMUNIZATIONS No Known Immunizations SOCIAL HISTORY Never Assessed REASON FOR VISIT EMR-[facility] [place], [place] PLAN OF CARE VITAL SIGNS MEDICATIONS Unknown [...]
--- OUTSIDE RECORDS SUMMARY | 2018-09-19 09:12 | XMS REPORT ---
Author Author Migration, Doctor Organization [facility] Address Unknown Phone Unavailable Care Team Providers Care Exhaust Emissions Automotive Technician Name Role Phone Migration, Doctor Unavailable Unavailable PROBLEMS Type Condition ICD9-CM Code [id number] Code Onset Dates Condition Status SNOMED Code Problem Hypokalemia E87.6 Active 351725849 Problem Generalized anxiety disorder F41.1 Active 67286855 Problem Pain in right knee M25.561 Active 20949281 Problem Right low back pain, with sciatica presence unspecified M54.5 Active 429720733 Problem Right foot pain M79.671 Active 24484033 Problem UTI symptoms R39.9 Active 54890663 Problem Essential hypertension I10 Active 43158474 Problem Gastroesophageal reflux disease without esophagitis K21.9 Active 108876983 Problem Weight decrease R63.4 Active 067959754 Problem Depression, unspecified depression type F32.9 Active 79152712 Problem Right upper quadrant abdominal pain R10.11 Active 511105779 Problem Tobacco abuse Z72.0 Active 48007724 Problem Insomnia, unspecified type G47.00 Active 548052308 Problem Weight loss R63.4 Active 551361950 Problem Post-traumatic stress disorder, chronic F43.12 Active 35376157 Problem Pulmonary emphysema, unspecified emphysema type J43.9 Active 75845768 Problem Neuropathy G62.9 Active 704804581 Problem Anxiety F41.9 Active 04722840 Problem Other emphysema J43.8 Active 32197858 Problem Other chronic pain G89.29 Active 60231737 Problem Chronic pain G89.29 Active 02509895 Problem Opioid use disorder, moderate, dependence F11.20 Active 36071077 Problem Back pain M54.9 Active 544049100 Problem Bone pain M89.8X9 Active 63885736 Problem Panic attacks F41.0 Active 834990832 Problem Kidney stones N20.0 Active 91225698 Problem Renal calculus, right N20.0 Active 71325896 Problem Generalized abdominal pain R10.84 Active 445071739 ALLERGIES No Information ENCOUNTERS Encounter Location Date Diagnosis [facility] [address] [address] Feb, [facility] [id number] [place] [address] 21130- 7169 Dec, [facility] [id number] [place] [address] 61641- 5988 Dec, [facility] [id number] [place] [address] 24204- 7634 Dec, Medicare welcome exam Z00.00 [facility] [id number] [place] [address] 58568- 7897 17 Nov, 2017 Opioid use disorder, moderate, dependence F11.20 [facility] [id number] [place] [address] 65961- 3273 16 Nov, 2017 Pelvic pain R10.2 ; Acute pyelonephritis N10 and Essential hypertension I10 [facility] [id number] [place] [address] 48713- 5610 28 Oct, 2017 Medicare welcome exam Z00.00 [facility] [id number] [place] [address] 48545- 7404 Oct, Gross hematuria R31.0 ; Urinary tract infection without hematuria, site unspecified N39.0 and Weakness R53.1 [facility] [address] [place] [address] 03595- 1322 Oct, [facility] [id number] [place] [address] 18843- 7363 Oct, [facility] [id number] [place] [address] 66494- 5754 Oct, Medicare welcome exam Z00.00 [facility] [id number] [place] [address] 04584- 2802 September, Back pain M54.9 and Right anterior knee pain M25.561 [facility] [id number] [place] [address] 62807- 4061 September, [facility] [address] [address] 0413 September, [facility] [id number] [place] [address] 31993- 4320 September, Essential hypertension I10 [facility] [id number] [place] [address] 33885- 6137 September, [facility] [id number] [place] [address] 45723- 0337 September, RLQ abdominal pain R10.31 ; Low back pain M54.5 and Other chronic pain G89.29 [facility] [id number] [place] [address] 03519- 8412 Aug, Medicare welcome exam Z00.00 [facility] [id number] [place] [address] 72421- 6093 Aug, [facility] [id number] [place] [address] 20993- 3011 Aug, Acute pyelonephritis N10 and Medicare welcome exam Z00.00 [facility] [id number] [place] [address] 17810 -0540 Aug, Dysuria R30.0 and Acute pyelonephritis N10 [facility] [address] [address]- 7188 Aug, [facility] [id number] [place] [address] 39090- 4288 Aug, [facility] [id number] [place] [address] 51198- 6433 Aug, [facility] [address] [place] [address] 22286- 5632 Aug, [facility] [address] [address]- 2668 Jul, [facility] [id number] [place] [address] 04919- 1434 Jul, Renal calculus, right N20.0 and Medicare welcome exam Z00.00 [facility] [id number] [place] [address] 36975 -3076 Jul, Dysuria R30.0 and Renal calculus, right N20.0 [facility] [id number] [place] [address] 29269- 0252 Jul, Medicare welcome exam Z00.00 [facility] [id number] [place] [address] 14870- 5320 Jun, Gastroesophageal reflux disease without esophagitis K21.9 and Generalized abdominal pain R10.84 [facility] [id number] [place] [address] 29359- 0808 Jun, Medicare welcome exam Z00.00 [facility] [id number] [place] [address] 82146- 5397 Jun, [facility] [id number] [place] [address] 71314- 4963 Jun, Medicare welcome exam Z00.00 and Encounter for screening mammogram for malignant neoplasm of breast Z12.31 [facility] [id number] [place] [address] 65743- 3679 Jun, Chronic pain G89.29 [facility] [id number] [place] [address] 81571- 3878 May, [facility] [id number] [place] [address] 01849- 4263 May, Pelvic pain R10.2 [facility] [id number] [place] [address] 14347- 0684 May, Pelvic pain R10.2 [facility] [address] [place] [address] 59206 -9217 May, Renal calculus, right N20.0 [facility] [address] [place] [address] 17943- 6608 May, Hematuria, unspecified type R31.9 and Nephrolithiasis N20.0 [facility] [id number] [place] [address] 47758 -6641 May, Dysuria R30.0 and Nephrolithiasis N20.0 [facility] [id number] [place] [address] 29074- 5097 May, [facility] [id number] [place] [address] 53125 -7751 May, Abdominal pain R10.9 and Kidney stone N20.0 [facility] [id number] [place] [address] 39895- 8180 May, [facility] [id number] [place] [address] 90100- 0479 May, Chronic pain G89.29 and Panic attacks F41.0 [facility] [id number] [place] [address] 37861- 4140 May, Urinary tract infection without hematuria, site unspecified N39.0 [facility] [id number] [place] [address] 78669- 2341 Apr, Right lower quadrant abdominal pain R10.31 and Abnormal serum lipase level R74.8 [facility] [id number] [place] [address] 07162- 6861 Apr, Recurrent urinary tract infection N39.0 [facility] [address] [place] [address] 10809- 9555 Apr, UTI symptoms R39.9 ; Recurrent urinary tract infection N39.0 and Pelvic pain R10.2 [facility] [address] [place] [address] 42461- 4437 Apr, Chronic pain G89.29 and Panic attacks F41.0 [facility] [id number] [place] [address] 48663- 4918 Apr, Dysuria R30.0 [facility] [id number] [place] [address] 39127- 5472 Apr, [facility] [id number] [place] [address] 09446- 4077 Apr, Dysuria R30.0 and Urinary tract infection without hematuria , site unspecified N39.0 [facility] [id number] [place] [address] 31846- 2302 Mar, UTI symptoms R39.9 [facility] [id number] [place] [address] 94683- 3125 Mar, [facility] [id number] [place] [address] 01929- 0863 Mar, Panic attacks F41.0 and Chronic pain G89.29 [facility] [address] 22189- 9262 Mar, [facility] [id number] [place] [address] 31686- 5950 Mar, Dysuria R30.0 [facility] [id number] [place] [address] 44807- 9198 Mar, Dysuria R30.0 [facility] [id number] [place] [address] 07947- 4714 Feb, Chronic pain G89.29 ; Shortness of breath R06.02 ; Weight loss R63.4 ; Encounter for immunization Z23 ; Bone pain M89.8X9 ; Right anterior knee pain M25.561 and Cough R05 [facility] [id number] [place] [address] 13543- 7712 Feb, Shortness of breath R06.02 [facility] [id number] [place] [address] 52453- 8711 Feb, [facility] [id number] [place] [address] 03221- 3026 Feb, Panic attacks F41.0 and Chronic pain G89.29 [facility] [address] 72887- 3067 Feb, [facility] [address] 09224- 9129 04 Feb, 2017 Panic attacks F41.0 ; Shortness of breath R06.02 and Encounter for immunization Z23 [facility] [address] 77283- 4817 Jan, [facility] [address] 05525- 1338 15 Jan, 2017 Anxiety F41.9 and Chronic pain G89.29 [facility] [address] 36503- 7296 Dec, Anxiety F41.9 and Chronic pain G89.29 [facility] [address] 35841- 9772 Nov, Chronic pain G89.29 [facility] [address] 58087- 8402 Nov, Anxiety F41.9 [facility] [address] 97214- 7476 Nov, Chronic pain G89.29 ; Essential hypertension I10 and Other emphysema J43.8 [facility] [id number] [place] [address] 65914- 8986 Oct, Anxiety F41.9 [facility] [address] 62637- 5156 Oct, [facility] [address] 29015- 9955 Oct, Chronic pain G89.29 [facility] [address] 06137- 2390 September, Recurrent UTI N39.0 ; Neuropathy G62.9 and Anxiety F41.9 [facility] [id number] [place] [address] 62454- 4361 September, [facility] [id number] [place] [address] 58619- 9002 September, Chronic pain G89.29 [facility] [id number] [place] [address] 95872- 4214 September, [facility] [address] 36926- 8538 Aug, Post-traumatic stress disorder, chronic F43.12 ; Chronic urinary tract infection N39.0 ; Gastroesophageal reflux disease without esophagitis K21.9 ; Chronic pain G89.29 ; Essential hypertension I10 and Tobacco abuse Z72.0 [facility] [id number] [place] [address] 94133 -6476 Aug, [facility] [address] 11549- 8016 Aug, Chronic pain G89.29 [facility] [address] 73444- 6244 Aug, Insomnia, unspecified type G47.00 [facility] [id number] [place] [address] 77776- 8228 Aug, [facility] [id number] [place] [address] 43251- 8860 Jul, Chronic pain G89.29 [facility] [id number] [place] [address] 62310- 2931 Jul, [facility] [address] 86398- 6186 Jul, [facility] [id number] [place] [address] 05366- 3744 Jul, [facility] [address] 06838- 3266 15 Jul, 2016 Recurrent UTI (urinary tract infection) N39.0 [facility] [address] [place] [address] 59653- 8970 14 Jul, 2016 [facility] [id number] [place] [address] 76056- 0875 27 Jun, 2016 Chronic pain G89.29 [facility] [id number] [place] [address] 31019- 6145 17 Jun, 2016 [facility] [id number] [place] [address] 55024- 5484 Jun, [facility] [id number] [place] [address] 45084- 6890 May, Chronic pain G89.29 [facility] [id number] [place] [address] 62560- 4503 May, Weight loss R63.4 and Shortness of breath R06.02 [facility] [id number] [place] [address] 97888- 6473 May, Chronic pain G89.29 ; Weight loss R63.4 and Tobacco abuse Z72.0 [facility] [address] [place] [address] 86341- 8384 May, [facility] [address] [place] [address] 20847- 1540 May, Hypoxia R09.02 [facility] [id number] [place] [address] 74951- 8517 May, [facility] [id number] [place] [address] 45776- 6557 May, Pulmonary emphysema, unspecified emphysema type J43.9 [facility] [address] [place] [address] 65216 -8277 May, [facility] [id number] [place] [address] 70757- 2656 May, [facility] [id number] [place] [address] 94077- 6963 May, [facility] [address] 70650- 5456 May, Chronic pain G89.29 ; Encounter for immunization Z23 ; Right anterior knee pain M25.561 and Cough R05 [facility] [address] 58459- 6203 Apr, Chronic pain G89.29 [facility] [id number] [place] [address] 57936- 6130 Apr, [facility] [address] 37509- 0303 Apr, Generalized anxiety disorder F41.1 and Depression, unspecified depression type F32.9 [facility] [address] 62527- 7976 Apr, Chronic pain G89.29 ; Hypokalemia E87.6 and Insomnia, unspecified type G47.00 [facility] [id number] [place] [address] 59442- 9847 Apr, [facility] [id number] [place] [address] 58611- 4404 Apr, Chronic pain G89.29 [facility] [id number] [place] [address] 13970- 2597 Apr, [facility] [id number] [place] [address] 50031- 8837 Mar, [facility] [id number] [place] [address] 00650- 4297 Mar, Insomnia, unspecified type G47.00 [facility] [id number] [place] [address] 21085- 2013 Mar, Chronic pain G89.29 [facility] [id number] [place] [address] 93451- 7119 Mar, [facility] [address] [address]- 1873 Feb, [facility] [address] [address]- 5336 Feb, [facility] [id number] [place] [address] 78013- 2233 Feb, [facility] [id number] [place] [address] 98743- 7650 Feb, [facility] [id number] [place] [address] 82091- 6913 Feb, [facility] [id number] [place] [address] 66746- 2410 29 Jan, 2016 [facility] [id number] [place] [address] 61733- 3692 26 Jan, 2015 [facility] [address] [address]- 9193 20 Jan, 2015 [facility] [id number] [place] [address] 29908- 3928 13 Jan, 2015 [facility] [address] [address]- 5060 12 Jan, 2016 [facility] [address] [place] [address] 80691- 6385 07 Jan, 2015 Chronic pain G89.29 [facility] [address] [address]- 1730 Jan, 2015 Chronic pain G89.29 and Fibromyalgia M79.7 [facility] [address] [address]- 9810 Dec, Depression, unspecified depression type F32.9 and Generalized anxiety disorder 300.02 [facility] [address] [address]- 5408 Dec, Dysthymia F34.1 ; Insomnia, unspecified type G47.00 and Chronic pain G89.29 [facility] [address] [facility] [id number] [place] [address] 39210- 4955 Dec, Chronic pain G89.29 [facility] [id number] [place] [address] 79106 2546 Dec, Insomnia, unspecified type G47.00 [facility] [address] [facility] [id number] [place] [address] 78999 2544 Dec, Fibromyalgia M79.7 and Chronic pain G89.29 [facility] [id number] [place] [address] 59493- 4556 Dec, [facility] [id number] [place] [address] 13491 2546 Dec, [facility] [id number] [place] [address] 17586- 0659 Dec, [facility] [id number] [place] [address] 85338 2546 Dec, [facility] [id number] [place] [address] 09762- 6404 Dec, Chronic pain G89.29 [facility] [id number] [place] [address] 97680 2544 Dec, [facility] [id number] [place] [address] 01333 2542 Dec, [facility] [id number] [place] [address] 00915 2546 Dec, [facility] [id number] [place] [address] 96089 2541 Dec, Chronic pain G89.29 and Dysthymia F34.1 [facility] [id number] [place] [address] 95205 2549 Nov, [facility] [id number] [place] [address] 16455- 7759 Nov, Hypokalemia E87.6 and Chronic pain G89.29 [facility] [address] 36918- 8634 Nov, Back pain M54.9 and Pain in right knee M25.561 [facility] [address] 80271- 2685 Nov, [facility] [address] 30098- 6344 Nov, Chronic pain G89.29 [facility] [address] 02971- 1398 Nov, Chronic pain G89.29 ; Weight loss R63.4 ; Bone pain M89.8X9 and Insomnia, unspecified type G47.00 [facility] [address] 10571- 2087 Nov, Chronic pain G89.29 [facility] [address] 02683- 8055 Nov, Chronic pain G89.29 [facility] [address] 88954- 2629 30 Oct, 2015 Chronic pain G89.29 [facility] [id number] [place] [address] 19303- 4317 Oct, UTI symptoms R39.9 [facility] [id number] [place] [address] 46665- 5666 27 Oct, 2015 Chronic pain G89.29 [facility] [address] 86324- 6280 20 Oct, 2015 Chronic pain G89.29 [facility] [id number] [place] [address] 74868- 4699 13 Oct, 2015 Chronic pain G89.29 [facility] [address] 15365- 7049 Oct, Right upper quadrant abdominal pain R10.11 [facility] [id number] [address] Oct, Chronic pain G89.29 [facility] [id number] [address] Oct, [facility] [id number] [place] [address] 50244- 0964 September, Chronic pain G89.29 [facility] [id number] [place] [address] 71335- 5674 September, Dysuria R30.0 and Urinary tract infection without hematuria , site unspecified N39.0 [facility] [id number] [place] [address] 45245- 5174 September, [facility] [address] [place] [id number] [place] [address] 01340- 1642 September, Dysuria R30.0 [facility] [id number] [place] [address] 21482- 7584 September, Chronic pain G89.29 [facility] [id number] [place] [address] 36894- 4225 September, Chronic pain G89.29 and Essential hypertension I10 [facility] [address] [address] September, [facility] [id number] [place] [address] 84463- 2296 September, [facility] [id number] [place] [address] 44218- 2514 September, [facility] [id number] [place] [address] 41080- 4487 Aug, UTI symptoms R39.9 [facility] [address] [address] Aug, Dysuria R30.0 [facility] [id number] [address] Aug, [facility] [address] [place] [id number] [place] [address] 06250- 7175 Aug, [facility] [address] [place] [id number] [place] [address] 54468- 2802 Aug, [facility] [address] [place] [id number] [place] [address] 21625- 0453 Aug, Chronic pain G89.29 [facility] [id number] [place] [address] 02908- 6638 Aug, Dysthymia F34.1 [facility] [id number] [place] [address] 60237- 6784 Aug, Conjunctivitis, unspecified conjunctivitis type, unspecified laterality H10.9 [facility] [id number] [place] [address] 08293- 2748 Jul, Chronic pain G89.29 ; Back pain M54.9 ; Tobacco abuse Z72.0 and Weight decrease R63.4 [facility] [id number] [place] [address] 87058- 6623 Jul, [facility] [id number] [place] [address] 48898- 9433 Jul, [facility] [id number] [place] [address] 58687- 6376 24 Jul, 2015 Chronic pain G89.29 [facility] [address] [address] 3941 Jul, [facility] [id number] [place] [address] 78357- 1996 Jul, [facility] [id number] [place] [address] 71608- 2940 Jul, [facility] [id number] [place] [address] 61503- 1534 17 Jul, 2015 [facility] [address] [address] 3779 17 Jul, 2015 Chronic pain G89.29 [facility] [address] [address]- 3961 16 Jul, 2015 Chronic pain G89.29 [facility] [id number] [place] [address] 60321- 6111 15 Jul, 2015 [facility] [id number] [place] [address] 72596- 5356 Jul, [facility] [id number] [place] [address] 74282- 1955 Jul, [facility] [id number] [place] [address] 78457- 4299 Jul, [facility] [id number] [place] [address] 30978- 4652 Jun, [facility] [id number] [place] [address] 80890- 6708 Jun, Depression, unspecified depression type F32.9 [facility] [id number] [place] [address] 86860- 4095 Jun, Pain in right knee M25.561 [facility] [id number] [place] [address] 07419- 0569 24 Jun, 2015 Chronic pain G89.29 ; Back pain M54.9 ; Bone pain M89.8X9 and Weight loss R63.4 [facility] [id number] [place] [address] 23626- 6913 Jun, [facility] [id number] [place] [address] 93980- 4263 May, [facility] [address] [address]- 9721 May, UTI symptoms R39.9 ; Pain in right knee M25.561 ; Right low back pain, with sciatica presence unspecified M54.5 ; Right foot pain M79.671 ; Hypokalemia E87.6 and Screening, lipid Z13.220 [facility] [id number] [place] [address] 30980- 9967 May, [facility] [id number] [place] [address] 21258- 4046 May, [facility] [id number] [place] [address] 29787- 8647 Mar, [facility] [id number] [place] [address] 64332- 4340 Mar, [facility] [id number] [place] [address] 77455- 2592 Mar, Hypokalemia E87.6 [facility] [address] 40877- 1038 Mar, Pain in right leg M79.604 ; Encounter for immunization Z23 ; Pain in right knee M25.561 and Hypokalemia E87.6 [facility] [id number] [place] [address] 87378- 1800 Jan, [facility] [id number] [place] [address] 91444- 6177 Jan, [facility] [id number] [place] [address] 22071 2540 Jan, Abdominal pain, generalized 789.07 [facility] [id number] [place] [address] 56822 2547 Jan, Abdominal pain, generalized 789.07 [facility] [id number] [place] [address] 14256- 8237 Dec, [facility] [id number] [place] [address] 26699- 4871 Dec, [facility] [address] [address]- 9896 Dec, [facility] [id number] [place] [address] 48204- 5002 Nov, Hallux valgus 735.0 and Hammertoe 735.4 [facility] [address] [address]- 1586 Nov, [facility] [id number] [place] [address] 02268- 8589 Nov, Hallux valgus 735.0 and Hammer toe 735.4 [facility] [id number] [place] [address] 76318- 7946 Oct, [facility] [id number] [place] [address] 78219- 7836 Oct, [facility] [id number] [place] [address] 22463- 2180 Oct, Pre-op evaluation V72.84 [facility] [address] [address]- 6732 Oct, [facility] [id number] [place] [address] 15386- 9949 Oct, [facility] [address] [address]- 3336 September, [facility] [address] [address] 2546 September, [facility] [id number] [address]- 7780 September, Hallux valgus (acquired) 735.0 and Other hammer toe ( acquired) 735.4 [facility] [address] [address]- 2546 Aug, [facility] [id number] [place] [address] 50265- 9248 Aug, [facility] [place] [facility] [address] [id number] [place] [address]- 1514 Jul, [facility] [place] [facility] [address] [id number] [place] [address]- 8966 Jul, [facility] [place] [facility] [address] [id number] [place] [address]- 9100 Jul, [facility] [place] [facility] [address] [id number] [place] [address]- 8936 Jul, [facility] [place] [facility] [address] [id number] [place] [address]- 9640 Jul, [facility] [place] [facility] [address] [id number] [place] [address]- 6047 Jul, [facility] [place] [facility] [address] [facility] [id number] [place] [address]- 3511 Jul, [facility] [place] [facility] [address] [id number] [place] [address]- 9132 Jul, [facility] [place] [facility] [address] [id number] [place] [address]- 5693 Jun, [facility] [place] [facility] [address] [facility] [id number] [place] [address]- 4912 Jun, [facility] [place] [facility] [address] [id number] [place] [address]- 6850 Jun, 2014 [facility] [place] [facility] [address] [id number] [place] [address]- 2822 Jun, [facility] [place] [facility] [address] [id number] [place] [address]- 5977 Jun, [facility] [place] [facility] [address] [id number] [place] [address]- 3289 Jun, [facility] [place] [facility] [address] [facility] [id number] [place] [address]- 2288 Jun, [facility] [place] [facility] [address] [id number] [place] [address]- 8606 Jun, [facility] [address] [id number] [place] [address]- 7223 Jun, [facility] [place] [facility] [address] [id number] [place] [address]- 8106 Jun, [facility] [place] [facility] [address] [id number] [place] [address]- 3676 May, [facility] [place] [facility] [address] [id number] [place] [address]- 9258 May, [facility] [place] [facility] [address] [id number] [place] [address]- 0912 May, [facility] [place] [facility] [address] [id number] [place] [address]- 7893 May, [facility] [place] [facility] [address] [id number] [place] [address]- 0221 May, [facility] [address] [id number] [place] [address]- 9468 May, [facility] [place] [facility] [address] [id number] [place] [address]- 1769 May, [facility] [place] [facility] [address] [id number] [place] [address]- 2951 May, [facility] [place] [facility] [address] [id number] [place] [address]- 2495 May, [facility] [place] [facility] [address] [id number] [place] [address]- 6780 May, [facility] [place] [facility] [address] [id number] [place] [address]- 8490 May, [facility] [place] [facility] [address] [id number] [place] [address]- 5906 May, [facility] [place] [facility] [address] [id number] [place] [address]- 4948 May, [facility] [place] [facility] [address] [id number] [place] [address]- 1113 May, [facility] [place] [facility] [address] [id number] [place] [address]- 1178 May, [facility] [place] [facility] [address] [id number] [place] [address]- 9208 May, [facility] [place] [facility] [address] [id number] [place] [address]- 9801 May, [facility] [place] [facility] [address] [id number] [place] [address]- 7272 May, [facility] [place] [facility] [address] [id number] [place] [address]- 9789 Apr, [facility] [place] [facility] [address] [id number] [place] [address]- 4239 Apr, [facility] [place] [facility] [address] [id number] [place] [address]- 7753 Apr, [facility] [place] [facility] [address] [id number] [place] [address]- 1718 Apr, [facility] [place] [facility] [address] [id number] [place] [address]- 6637 Apr, [facility] [place] [facility] [address] [id number] [place] [address]- 2189 Apr, [facility] [place] [facility] [address] [id number] [place] [address]- 1349 Apr, [facility] [place] [facility] [address] [id number] [place] [address]- 7032 Apr, [facility] [place] [facility] [address] [id number] [place] [address]- 6791 Apr, [facility] [place] [facility] [address] [id number] [place] [address] Mar, [facility] [place] [facility] [address] [id number] [place] [address]- 7003 Mar, [facility] [place] [facility] [address] [id number] [place] [address]- 9047 Mar, [facility] [place] [facility] [address] [id number] [place] [address]- 7176 Mar, [facility] [place] [facility] [address] [id number] [place] [address]- 5901 Mar, [facility] [place] [facility] [address] [id number] [place] [address]- 9485 Feb, [facility] [place] [facility] [address] [id number] [place] [address]- 8985 Feb, [facility] [place] [facility] [address] [id number] [place] [address]- 1721 Feb, [facility] [place] [facility] [address] [id number] [place] [address]- 0661 Feb, [facility] [place] [facility] [address] [id number] [place] [address]- 5789 Feb, [facility] [place] [facility] [address] [id number] [place] [address]- 2961 Feb, [facility] [place] [facility] [address] [id number] [place] [address]- 0902 Feb, [facility] [place] [facility] [address] [id number] [place] [address]- 6220 Feb, [facility] [place] [facility] [address] [id number] [address]- 7431 Feb, [facility] [place] [facility] [address] [id number] 3450 Feb, [facility] [place] [facility] [address] [id number] [address]- 2657 Feb, [facility] [place] [facility] [address] [id number] 9023 Feb, [facility] [place] [facility] [address] [id number] [place] [address]- 6518 07 Feb, 2013 [facility] [place] [facility] [address] [id number] [place] [address]- 2705 Feb, [facility] [place] [facility] [address] [id number] [place] [address]- 8748 Feb, 2013 [facility] [place] [facility] [address] [id number] [place] [address]- 5084 Feb, [facility] [place] [facility] [address] [id number] [place] [address]- 5948 Jan, 2013 [facility] [place] [facility] [address] [id number] [place] [address]- 2864 23 Jan, 2013 [facility] [place] [facility] [address] [id number] [place] [address]- 0788 20 Jan, 2014 [facility] [place] [facility] [address] [id number] [place] [address]- 2594 19 Jan, 2013 [facility] [place] [facility] [address] [id number] [place] [address]- 3888 11 Jan, 2014 [facility] [place] [facility] [address] [id number] [place] [address]- 6403 Jan, [facility] [place] [facility] [address] [id number] [place] [address]- 2266 Jan, [facility] [place] [facility] [address] [id number] [place] [address]- 7909 Jan, 2013 [facility] [place] [facility] [address] [id number] [place] [address]- 5712 Dec, [facility] [place] [facility] [address] [id number] [place] [address]- 2526 Dec, [facility] [place] [facility] [address] [id number] [place] [address]- 0770 Nov, [facility] [place] [facility] [address] [id number] [place] [address]- 0242 Nov, [facility] [place] [facility] [address] [id number] [place] [address]- 9555 Nov, [facility] [place] [facility] [address] [id number] [place] [address]- 6333 Nov, [facility] [place] [facility] [address] [id number] [place] [address]- 6916 Nov, [facility] [place] [facility] [address] [id number] [place] [address]- 7402 Nov, [facility] [place] [facility] [address] [id number] [place] [address]- 1254 Nov, [facility] [place] [facility] [address] [id number] [place] [address]- 9464 Nov, [facility] [place] [facility] [address] [id number] [place] [address]- 6100 Nov, [facility] [place] [facility] [address] [id number] [place] [address]- 1117 Oct, [facility] [place] [facility] [address] [id number] [place] [address]- 1837 Oct, [facility] [place] [facility] [address] [id number] [place] [address]- 6426 Oct, [facility] [place] [facility] [address] [id number] [place] [address]- 9281 Oct, [facility] [place] [facility] [address] [id number] [place] [address]- 7347 Oct, [facility] [place] [facility] [address] [id number] [place] [address]- 5539 Oct, [facility] [place] [facility] [address] [id number] [place] [address]- 5235 September, [facility] [place] [facility] [address] [id number] [place] [address]- 5983 September, [facility] [place] [facility] [address] [id number] [place] [address]- 5840 September, [facility] [address] [id number] [place] 4191 September, [facility] [address] [id number] [place] [address]- 0202 September, [facility] [address] [id number] [place] [address]- 6302 September, [facility] [address] [id number] [place] [address]- 9509 September, [facility] [address] [id number] [place] 5751 September, [facility] [address] [id number] [place] [address]- 5755 September, [facility] [address] [id number] [place] [address]- 3313 September, [facility] [address] [id number] [place] [address]- 1592 September, [facility] [address] [id number] [place] [address]- 1462 September, [facility] [address] [id number] [place] [address]- 9051 September, [facility] [address] [id number] [place] [address]- 6770 September, [facility] [address] [id number] [place] [address]- 8197 September, [facility] [place] [facility] [address] [id number] [place] 3755 September, [facility] [place] [facility] [address] [id number] [place] 1220 September, [facility] [address] [id number] [place] [address]- 7806 September, [facility] [place] [facility] [address] [id number] [place] [address]- 2123 September, [facility] [place] [facility] [address] [id number] [place] [address]- 9897 September, [facility] [place] [facility] [address] [id number] [place] [address]- 3212 Aug, [facility] [place] [facility] [address] [id number] [place] [address]- 1925 Aug, [facility] [place] [facility] [address] [id number] [place] [address]- 7175 Aug, [facility] [place] [facility] [address] [id number] [place] [address]- 0765 Aug, [facility] [place] [facility] [address] [id number] [place] [address]- 9940 Aug, [facility] [place] [facility] [address] [id number] [place] [address]- 5244 Aug, [facility] [place] [facility] [address] [id number] [place] [address]- 5208 Aug, [facility] [place] [facility] [address] [id number] [place] [address]- 2948 Aug, [facility] [place] [facility] [address] [id number] [place] [address]- 0470 Aug, [facility] [place] [facility] [address] [id number] [place] [address]- 9329 Aug, [facility] [place] [facility] [address] [id number] [place] [address]- 7566 Aug, [facility] [place] [facility] [address] [id number] [place] [address]- 5365 Aug, [facility] [place] [facility] [address] [id number] [place] [address]- 9062 Aug, [facility] [place] [facility] [address] [id number] [place] [address]- 8393 Aug, [facility] [place] [facility] [address] [id number] [place] [address]- 6668 Aug, [facility] [place] [facility] [address] [id number] [place] [address]- 7631 Jul, [facility] [place] [facility] [address] [id number] [place] [address]- 9177 Jul, [facility] [place] [facility] [address] [id number] [place] [address] Jul, [facility] [place] [facility] [address] [id number] [place] [address] Jul, [facility] [place] [facility] [address] [id number] [place] [address] Jul, [facility] [place] [facility] [address] [id number] [place] [address] Jul, [facility] [place] [facility] [address] [id number] [place] [address] Jul, [facility] [place] [facility] [address] [id number] [place] [address] Jul, [facility] [place] [facility] [address] [id number] [place] [address] Jul, [facility] [place] [facility] [address] [id number] [place] [address] Jul, [facility] [place] [facility] [address] [id number] [place] [address] Jul, [facility] [place] [facility] [address] [id number] [place] [address] Jul, [facility] [place] [facility] [address] [id number] [place] [address] Jul, [facility] [place] [facility] [address] [id number] [place] [address] Jul, [facility] [place] [facility] [address] [id number] [place] [address] Jul, [facility] [place] [facility] [address] [id number] [place] [address] Jun, [facility] [place] [facility] [address] [id number] [place] [address] Jun, [facility] [place] [facility] [address] [id number] [place] [address]- [address] Jun, [facility] [place] [facility] [address] [id number] [place] [address] Jun, [facility] [place] [facility] [address] [id number] [place] [address] Jun, [facility] [place] [facility] [address] [id number] [place] [address] Jun, [facility] [place] [facility] [address] [id number] [place] [address] May, [facility] [place] [facility] [address] [id number] [place] [address] May, [facility] [place] [facility] [address] [id number] [place] [address] May, [facility] [place] [facility] [address] [id number] [place] [address] May, [facility] [place] [facility] [address] [id number] [place] [address] May, [facility] [place] [facility] [address] [id number] [place] [address] May, [facility] [place] [facility] [address] [id number] [place] [address] May, [facility] [place] [facility] [address] [id number] [place] [address] May, [facility] [place] [facility] [address] [id number] [place] [address] May, [facility] [address] [id number] [place] [address] 164[address] May, [facility] [place] [facility] [address] [id number] [place] [address] 97[address] May, [facility] [place] [facility] [address] [id number] [place] [address]- [address]16 May, [facility] [place] [facility] [address] [id number] [place] [address] May, [facility] [place] [facility] [address] [id number] [place] [address] May, [facility] [place] [facility] [address] [id number] [place] [address] May, [facility] [place] [facility] [address] [id number] [place] [address] Apr, [facility] [place] [facility] [address] [id number] [place] [address]- [address] Apr, [facility] [place] [facility] [address] [id number] [place] [address] Apr, [facility] [place] [facility] [address] [id number] [place] [address] Apr, [facility] [place] [facility] [address] [id number] [place] [address] Apr, [facility] [place] [facility] [address] [id number] [place] [address]- [address] Apr, [facility] [place] [facility] [address] [id number] [place] [address]- [address] Apr, [facility] [place] [facility] [address] [id number] [place] [address]- 69[address] Apr, [facility] [place] [facility] [address] [id number] [place] [address]- [address] Apr, [facility] [place] [facility] [address] [id number] [place] [address]- [address]83 Apr, [facility] [address] [id number] [place] [address] Mar, [facility] [address] [id number] [place] [address]- [address] Mar, [facility] [address] [id number] [place] [address]- [address] Mar, [facility] [address] [id number] [place] [address]- 8468 Mar, [facility] [address] [id number] [place] [address]- [address] Mar, [facility] [address] [id number] [place] [address]- [address] Mar, [facility] [address] [id number] [place] [address] Mar, [facility] [address] [id number] [place] [address]- [address] Mar, [facility] [address] [id number] [place] [address]- [address] Mar, [facility] [address] [id number] [place] [address] Mar, [facility] [address] [id number] [place] [address] Mar, [facility] [address] [id number] [place] [address] Mar, [facility] [place] [facility] [address] [id number] [place] [address]- [address] Mar, [facility] [place] [facility] [address] [id number] [place] [address]- [address] Mar, [facility] [address] [id number] [place] [address] Mar, [facility] [place] [facility] [address] [id number] [place] [address] 18 Mar, 2013 [facility] [place] [facility] [address] [id number] [place] [address] 7721 Mar, [facility] [place] [facility] [address] [id number] [place] [address] 1462 Mar, [facility] [place] [facility] [address] [id number] [place] [address] 4138 Mar, [facility] [place] [facility] [address] [id number] [place] [address]- 9380 Mar, [facility] [place] [facility] [address] [id number] [place] [address]- 2244 Mar, [facility] [place] [facility] [address] [id number] [place] [address] 4777 Mar, [facility] [place] [facility] [address] [id number], [place] [address] Mar, [facility] [place] [facility] [address] [id number], [place] [address] Feb, [facility] [place] [facility] [address] [id number], [place] [address] 8842 Feb, [facility] [place] [facility] [address] [id number], [place] [address] Feb, [facility] [place] [facility] [address] [id number], [place] [address] 57[address] 16 Feb, 2013 [facility] [place] [facility] [address] [id number], [place] [address] 2636 15 Feb, 2013 [facility] [place] [facility] [address] [id number], [place] [address] 1074 Feb, [facility] [place] [facility] [address] [facility] [id number], [place] [address] 8710 Feb, [facility] [place] [facility] [address] [id number], [place] [address]- 8656 Feb, [facility] [address] [id number] [place] [address]- 7665 Feb, [facility] [place] [facility] [address] [id number] [place] [address]- 6522 Feb, [facility] [place] [facility] [address] [id number] [place] [address]- 5400 30 Jan, 2013 [facility] [place] [facility] [address] [id number] [place] [address] 1917 26 Jan, 2013 [facility] [place] [facility] [address] [id number] [place] [address]- 6969 24 Jan, 2013 [facility] [place] [facility] [address] [id number] [place] [address]- 8872 23 Jan, 2013 [facility] [place] [facility] [address] [id number] [place] [address]- 0926 17 Jan, 2013 [facility] [place] [facility] [address] [id number] [place] [address]- 9977 Dec, [facility] [place] [facility] [address] [id number] [place] [address]- 5582 Dec, [facility] [place] [facility] [address] [id number] [place] [address]- 3039 Dec, [facility] [place] [facility] [address] [id number] [place] [address]- 7483 15 Dec, 2012 [facility] [place] [facility] [address] [id number] [place] [address]- 6785 14 Dec, 2012 [facility] [place] [facility] [address] [id number] [place] [address]- 1650 Dec, [facility] [place] [facility] [address] [id number] [place] [address]- 8840 Dec, [facility] [place] [facility] [address] [id number] [place] [address]- 4652 Nov, [facility] [place] [facility] [address] [id number] [place] [address]- 2546 16 Nov, 2012 [facility] [address] [id number] [place] [address]- 5156 15 Nov, 2012 [facility] [place] [facility] [address] [id number] [place] [address]- 2546 05 Nov, 2012 [facility] [address] [id number] [place] [address]- 2546 Nov, [facility] [place] [facility] [address] [id number] [place] [address]- 6496 Oct, [facility] [address] [id number] [place] [address]- 3076 Oct, [facility] [place] [facility] [address] [id number] [place] [address]- 2546 Oct, [facility] [address] [id number] [place] [address]- 4606 September, [facility] [address] [id number] [place] [address]- 4567 September, [facility] [address] [id number] [place] [address]- 9436 September, [facility] [address] [id number] [place] [address]- 4326 September, [facility] [place] [facility] [address] [id number] [place] [address]- 4196 September, [facility] [address] [id number] [place] [address]- 2546 September, [facility] [place] [facility] [address] [id number] [place] [address]- 2546 September, [facility] [place] [facility] [address] [id number] [place] [address]- 2546 Aug, [facility] [place] [facility] [address] [id number] [place] [address]- 7341 23 Aug, 2012 [facility] [place] [facility] [address] [id number] [place] [address]- 4140 11 Aug, 2012 [facility] [place] [facility] [address] [id number] [place] [address]- 3795 29 Jul, 2012 [facility] [place] [facility] [address] [id number] [place] [address]- 5015 27 Jul, 2012 [facility] [place] [facility] [address] [id number] [place] [address]- 4773 26 Jul, 2012 [facility] [place] [facility] [address] [id number] [place] [address]- 2810 20 Jul, 2012 [facility] [place] [facility] [address] [id number] [place] [address]- 1208 18 Jul, 2012 [facility] [place] [facility] [address] [facility] [id number] [place] [address]- 1596 18 Jul, 2012 [facility] [place] [facility] [address] [id number] [place] [address]- 2137 13 Jul, 2012 [facility] [place] [facility] [address] [id number] [place] [address]- 1343 28 Jun, 2012 [facility] [place] [facility] [address] [facility] [id number] [place] [address]- 9924 27 Jun, 2012 [facility] [place] [facility] [address] [facility] [id number] [place] [address]- 8609 22 Jun, 2012 [facility] [place] [facility] [address] [id number] [place] [address]- 1712 20 Jun, 2012 [facility] [place] [facility] [address] [id number] [place] [address]- 7698 15 Jun, 2012 [facility] [place] [facility] [address] [id number] [place] [address]- 3960 15 Jun, 2012 [facility] [place] [facility] [address] [facility] [id number] [place] [address]- 2265 13 Jun, 2012 [facility] [place] [facility] [address] [id number] [place] [address]- 7476 Jun, [facility] [address] [id number] [place] [address]- 9876 Jun, [facility] [place] [facility] [address] [id number] [place] [address]- 2546 Jun, [facility] [address] [id number] [place] [address]- 1086 May, [facility] [place] [facility] [address] [id number] [place] [address] 2543 May, [facility] [address] [id number] [place] [address]- 8496 May, [facility] [address] [id number] [place] [address]- 3340 May, [facility] [address] [id number] [place] [address]- 6686 May, [facility] [address] [id number] [place] [address]- 3986 May, [facility] [address] [id number] [place] [address]- 7804 31 Apr, 2012 [facility] [address] [id number] [place] [address] 2546 31 Apr, 2012 [facility] [address] [id number] [place] [address] 2546 Apr, [facility] [place] [facility] [address] [id number] [place] [address] 2544 28 Apr, 2012 [facility] [place] [facility] [address] [id number] [place] [address] 2546 26 Apr, 2012 [facility] [place] [facility] [address] [id number] [place] [address]- 2546 20 Apr, 2012 [facility] [place] [facility] [address] [id number] [place] [address]- 6477 Apr, [facility] [place] [facility] [address] [id number] [place] [address]- 3778 Mar, [facility] [place] [facility] [address] [id number] [place] [address]- 7617 Mar, [facility] [place] [facility] [address] [facility] [id number] [place] [address]- 4822 Mar, [facility] [place] [facility] [address] [id number] [place] [address]- 8147 Mar, [facility] [place] [facility] [address] [id number] [place] [address]- 5160 Mar, [facility] [place] [facility] [address] [id number], [place] [address]- 7548 Mar, [facility] [place] [facility] [address] [id number] [place] [address]- 6182 Mar, [facility] [place] [facility] [address] [id number], [place] [address]- 1357 Mar, [facility] [place] [facility] [address] [id number], [place] [address]- 6232 Mar, [facility] [place] [facility] [address] [id number], [place] [address]- 6816 Mar, [facility] [place] [facility] [address] [id number], [place] [address]- 4446 Mar, [facility] [place] [facility] [address] [id number], [place] [address]- 2240 Mar, [facility] [place] [facility] [address] [id number][place] [address]- 5305 Mar, [facility] [place] [facility] [address] [facility] [id number], [place] [address]- 7900 Mar, [facility] [place] [facility] [address] [facility] [id number], [place] [address]- 2490 Mar, [facility] [place] [facility] [address] [id number] [place] [address]- 9402 Mar, [facility] [place] [facility] [address] [id number] [place] [address]- 8778 Mar, [facility] [place] [facility] [address] [id number] [place] [address]- 5814 Feb, [facility] [place] [facility] [address] [id number] [place] [address]- 9446 Feb, 2011 [facility] [place] [facility] [address] [id number] [place] [address]- 4356 Feb, [facility] [place] [facility] [address] [id number] [place] [address]- 0095 Feb, [facility] [place] [facility] [address] [id number] [place] [address]- 5548 Feb, [facility] [place] [facility] [address] [id number] [place] [address]- 5308 Feb, [facility] [place] [facility] [address] [id number] [place] [address]- 2640 Feb, [facility] [place] [facility] [address] [id number] [place] [address]- 5934 Feb, [facility] [place] [facility] [address] [facility] [id number] [place] [address]- 8355 Feb, [facility] [place] [facility] [address] [id number] [place] [address]- 1724 Feb, [facility] [place] [facility] [address] [id number] [place] [address]- 4628 Feb, [facility] [place] [facility] [address] [id number] [place] [address]- 4595 27 Jan, 2011 [facility] [place] [facility] [address] [id number] [place] [address]- 8041 25 Jan, 2012 [facility] [place] [facility] [address] [id number] [place] [address]- 2143 13 Jan, 2012 [facility] [place] [facility] [address] [id number] [place] [address]- 2620 12 Jan, 2012 [facility] [place] [facility] [address] [id number] [place] [address]- 1842 Jan, [facility] [place] [facility] [address] [id number] [place] [address]- 1778 Dec, [facility] [place] [facility] [address] [id number] [place] [address]- 0113 Dec, [facility] [place] [facility] [address] [id number] [place] [address]- 7503 Dec, [facility] [place] [facility] [address] [id number] [place] [address]- 1578 Dec, [facility] [place] [facility] [address] [id number] [place] [address]- 0745 Dec, [facility] [place] [facility] [address] [id number] [place] [address]- 8201 Dec, [facility] [place] [facility] [address] [id number] [place] [address]- 3809 Dec, [facility] [place] [facility] [address] [id number] [place] [address]- 8941 Dec, [facility] [place] [facility] [address] [id number] [place] [address]- 3704 Nov, [facility] [place] [facility] [address] [id number] [place] [address]- 8291 Nov, [facility] [place] [facility] [address] [id number] [place] [address]- 5606 Nov, [facility] [place] [facility] [address] [id number] [place] [address]- 1919 Nov, [facility] [place] [facility] [address] [id number] [place] [address]- 9966 Nov, [facility] [place] [facility] [address] [id number] [place] [address]- 4278 Oct, [facility] [address] [id number] [place]14 Oct, [facility] [place] [facility] [address] [id number] [place] [address]- 9820 September, [facility] [address] [id number] [place] [address]- 4656 September, [facility] [place] [facility] [address] [id number] [place] [address]- 1731 September, [facility] [address] [id number] [place] [address]- 5779 September, [facility] [place] [facility] [address] [id number] [place] [address]- 5058 September[facility] [address] [id number] [place] [address]- 2907 September, [facility] [place] [facility] [address] [id number] [place] [address]- 9852 September, [facility] [place] [facility] [address] [id number] [place] [address]- 0293 September, [facility] [place] [facility] [address] [id number] [place] [address]- 2366 September, [facility] [place] [facility] [address] [id number] [place] [address]- 3578 September, [facility] [place] [facility] [address] [id number] [place] [address]- 8890 September, [facility] [place] [facility] [address] [id number] [place] [address]- 4828 September, [facility] [place] [facility] [address] [id number] [place] [address]- 9455 September, [facility] [place] [facility] [address] [id number] [place] [address]- 9380 September, [facility] [place] [facility] [address] [id number] [place] [address]- 0048 24 Aug, 2011 [facility] [address] [id number] [place] [address]- 8867 20 Aug, 2011 [facility] [address] [id number] [place] [address]- 3016 13 Aug, 2011 [facility] [address] [id number] [place] [address]- 4061 11 Aug, 2011 [facility] [address] [id number] [place] [address]- 4087 23 Jul, 2011 [facility] [address] [id number] [place] [address]- 6573 13 Jul, 2011 [facility] [address] [id number] [place] [address]- 1942 13 Jul, 2011 [facility] [address] [id number] [place] [address]- 4954 28 Jun, [address] [facility] [address] [id number] [place] [id number] 26 Jun, 2011 [facility] [address] [id number] [place] [address]- 2059 13 Jun, 2011 [facility] [address] [id number] [place] [address]- 7324 10 Jun, 2011 [facility] [address] [id number] [place] [address]- 8086 07 Jun, 2011 [facility] [address] [id number] [place] [address]- 7436 07 Jun, 2011 [facility] [place] [facility] [address] [id number] [place] [address]- 9006 03 Jun, 2011 [facility] [place] [facility] [address] [id number] [place] [address]- 9636 02 Jun, 2011 [facility] [place] [facility] [address] [id number] [place] [address]- 2538 31 May, 2011 [facility] [address] [id number] [place] [address]- 7275 30 May, 2011 [facility] [address] [id number] [place] [address]- 1229 May, [facility] [address] [id number] [place] [address]- 0099 May, [facility] [address] [id number] [place] [address]- 0979 May, [facility] [address] [id number] [place] [address]- 9782 May, [facility] [address] [id number] [place] [address]- 9716 May, [facility] [address] [id number] [place] [address]- 2281 May, [facility] [place] [facility] [address] [id number] [place] [address]- 9257 May, [facility] [address] [id number] [place] [address]- 0767 May, [facility] [place] [facility] [address] [id number] [place] [address]- 7482 May, [facility] [address] [id number], [place] [address]- 8844 May, [facility] [place] [facility] [address] [id number], [place] [address]- 6314 May, [facility] [place] [facility] [address] [id number] [place] [address]- 8201 May, [facility] [place] [facility] [address] [id number] [place] [address]- 6378 30 Apr, 2011 [facility] [place] [facility] [address] [id number] [place] [address]- 6625 16 Apr, 2011 [facility] [place] [facility] [address] [id number] [place] [address]- 8302 05 Apr, 2011 [facility] [place] [facility] [address] [id number] [place] [address]- 4426 17 Mar, 2011 [facility] [place] [facility] [address] [id number] [place] [address] 2546 Mar, [facility] [place] [facility] [address] [id number] [place] [address]- 1106 31 Feb, 2011 [facility] [place] [facility] [address] [id number] [place] [address] 2546 26 Feb, 2011 [facility] [place] [facility] [address] [id number] [place] [address]- 6676 Feb, [facility] [place] [facility] [address] [id number] [place] [address]- 4997 20 Feb, 2011 [facility] [place] [facility] [address] [id number] [place] [address]- 7701 13 Feb, 2011 [facility] [place] [facility] [address] [id number] [place] [address]- 2556 28 Apr, 2010 [facility] [place] [facility] [address] [id number] [place] [address] 2546 22 Apr, 2010 [facility] [place] [facility] [address] [facility] [id number] [place] [address] 2542 16 Apr, 2010 [facility] [place] [facility] [address] [id number] [place] [address] 2546 15 Apr, 2010 [facility] [place] [facility] [address] [id number] [place] [address] 2546 15 Apr, 2010 [facility] [place] [facility] [address] [id number] [place] [address] Apr, [facility] [place] [facility] [address] [id number] [place] [address] 24 Mar, 2010 [facility] [place] [facility] [address] [id number] [place] [address] 17 Mar, 2010 [facility] [id number] [address] 17 Mar, 2010 [facility] [address] [address] 28 Feb, 2010 [facility] [id number] [address] Feb, [facility] [id number] [place] [address] Feb, [facility] [address] [address] Feb, [facility] [id number] [place] [address] Dec, [facility] [address] [address] Dec, [facility] [id number] [place] [address] Oct, [facility] [address] [address] Mar, [facility] [address] [address] Mar, [facility] [id number] [address] September, IMMUNIZATIONS No Known Immunizations SOCIAL HISTORY Never Assessed REASON FOR VISIT EMR-[facility] PLAN OF CARE VITAL SIGNS MEDICATIONS Unknown [...]
--- OUTSIDE RECORDS SUMMARY | 2018-09-19 09:14 | XMS REPORT ---
Author Author Migration, Doctor Organization [facility] Address Unknown Phone Unavailable Care Team Providers Care Video Engineer Name Role Phone Migration, Doctor Unavailable Unavailable PROBLEMS Type Condition ICD9-CM Code [id number] Code Onset Dates Condition Status SNOMED Code Problem Hypokalemia E87.6 Active 717956298 Problem Generalized anxiety disorder F41.1 Active 41944777 Problem Pain in right knee M25.561 Active 65089093 Problem Right low back pain, with sciatica presence unspecified M54.5 Active 098568959 Problem Right foot pain M79.671 Active 90405464 Problem UTI symptoms R39.9 Active 50483657 Problem Essential hypertension I10 Active 92348841 Problem Gastroesophageal reflux disease without esophagitis K21.9 Active 990361115 Problem Weight decrease R63.4 Active 552706841 Problem Depression, unspecified depression type F32.9 Active 17914912 Problem Right upper quadrant abdominal pain R10.11 Active 511874182 Problem Tobacco abuse Z72.0 Active 62367298 Problem Insomnia, unspecified type G47.00 Active 464982849 Problem Weight loss R63.4 Active 239850383 Problem Post-traumatic stress disorder, chronic F43.12 Active 61145125 Problem Pulmonary emphysema, unspecified emphysema type J43.9 Active 24540064 Problem Neuropathy G62.9 Active 747984540 Problem Anxiety F41.9 Active 15733565 Problem Other emphysema J43.8 Active 00286062 Problem Other chronic pain G89.29 Active 10556925 Problem Chronic pain G89.29 Active 83075630 Problem Opioid use disorder, moderate, dependence F11.20 Active 19830618 Problem Back pain M54.9 Active 539581545 Problem Bone pain M89.8X9 Active 98407859 Problem Panic attacks F41.0 Active 061793280 Problem Kidney stones N20.0 Active 99422430 Problem Renal calculus, right N20.0 Active 00729990 Problem Generalized abdominal pain R10.84 Active 785311769 ALLERGIES No Information ENCOUNTERS Encounter Location Date Diagnosis [facility] [address] [address] Feb, [facility] [id number] [place] [address] 91749- 4617 Dec, [facility] [id number] [place] [address] 45903- 6166 Dec, [facility] [id number] [place] [address] 21343- 5304 Dec, Medicare welcome exam Z00.00 [facility] [id number] [place] [address] 65826- 4385 17 Nov, 2017 Opioid use disorder, moderate, dependence F11.20 [facility] [id number] [place] [address] 00550- 5492 16 Nov, 2017 Pelvic pain R10.2 ; Acute pyelonephritis N10 and Essential hypertension I10 [facility] [id number] [place] [address] 71953- 9475 28 Oct, 2017 Medicare welcome exam Z00.00 [facility] [id number] [place] [address] 38690- 4310 Oct, Gross hematuria R31.0 ; Urinary tract infection without hematuria, site unspecified N39.0 and Weakness R53.1 [facility] [address] [place] [address] 45301- 8903 Oct, [facility] [id number] [place] [address] 01182- 6768 Oct, [facility] [id number] [place] [address] 58539- 8088 Oct, Medicare welcome exam Z00.00 [facility] [id number] [place] [address] 68403- 3179 September, Back pain M54.9 and Right anterior knee pain M25.561 [facility] [id number] [place] [address] 78869- 1874 September, [facility] [address] [address] 7690 September, [facility] [id number] [place] [address] 93556- 0772 September, Essential hypertension I10 [facility] [id number] [place] [address] 77085- 9248 September, [facility] [id number] [place] [address] 94835- 5212 September, RLQ abdominal pain R10.31 ; Low back pain M54.5 and Other chronic pain G89.29 [facility] [id number] [place] [address] 43384- 6178 Aug, Medicare welcome exam Z00.00 [facility] [id number] [place] [address] 49315- 0817 Aug, [facility] [id number] [place] [address] 73505- 3991 Aug, Acute pyelonephritis N10 and Medicare welcome exam Z00.00 [facility] [address] [place] [address] 01572 -8220 Aug, Dysuria R30.0 and Acute pyelonephritis N10 [facility] [address] [address]- 1002 Aug, [facility] [id number] [place] [address] 14441- 8025 Aug, [facility] [address] [place] [address] 46304- 3887 Aug, [facility] [address] [place] [address] 87721- 5484 Aug, [facility] [address] [address]- 7604 Jul, [facility] [id number] [place] [address] 46534- 2084 Jul, Renal calculus, right N20.0 and Medicare welcome exam Z00.00 [facility] [id number] [place] [address] 10043 -3400 Jul, Dysuria R30.0 and Renal calculus, right N20.0 [facility] [id number] [place] [address] 23481- 1407 Jul, Medicare welcome exam Z00.00 [facility] [id number] [place] [address] 32362- 7774 Jun, Gastroesophageal reflux disease without esophagitis K21.9 and Generalized abdominal pain R10.84 [facility] [id number] [place] [address] 96175- 9933 Jun, Medicare welcome exam Z00.00 [facility] [id number] [place] [address] 32261- 5425 Jun, [facility] [id number] [place] [address] 76626- 2077 Jun, Medicare welcome exam Z00.00 and Encounter for screening mammogram for malignant neoplasm of breast Z12.31 [facility] [id number] [place] [address] 49651- 4077 Jun, Chronic pain G89.29 [facility] [id number] [place] [address] 78673- 1394 May, [facility] [id number] [place] [address] 20155- 3514 May, Pelvic pain R10.2 [facility] [id number] [place] [address] 21795- 2525 May, Pelvic pain R10.2 [facility] [address] [place] [address] 59859 -5832 May, Renal calculus, right N20.0 [facility] [address] [place] [address] 28890- 6760 May, Hematuria, unspecified type R31.9 and Nephrolithiasis N20.0 [facility] [id number] [place] [address] 70618 -9267 May, Dysuria R30.0 and Nephrolithiasis N20.0 [facility] [id number] [place] [address] 84006- 0487 May, [facility] [id number] [place] [address] 90822 -1684 May, Abdominal pain R10.9 and Kidney stone N20.0 [facility] [id number] [place] [address] 43842- 0683 May, [facility] [id number] [place] [address] 43364- 1697 May, Chronic pain G89.29 and Panic attacks F41.0 [facility] [id number] [place] [address] 39347- 1574 May, Urinary tract infection without hematuria, site unspecified N39.0 [facility] [id number] [place] [address] 18861- 0826 Apr, Right lower quadrant abdominal pain R10.31 and Abnormal serum lipase level R74.8 [facility] [id number] [place] [address] 07732- 4661 Apr, Recurrent urinary tract infection N39.0 [facility] [address] [place] [address] 17361- 0241 Apr, UTI symptoms R39.9 ; Recurrent urinary tract infection N39.0 and Pelvic pain R10.2 [facility] [address] [place] [address] 23631- 5453 Apr, Chronic pain G89.29 and Panic attacks F41.0 [facility] [id number] [place] [address] 27593- 6298 Apr, Dysuria R30.0 [facility] [id number] [place] [address] 96706- 3212 Apr, [facility] [id number] [place] [address] 31377- 7291 Apr, Dysuria R30.0 and Urinary tract infection without hematuria , site unspecified N39.0 [facility] [id number] [place] [address] 06167- 3287 Mar, UTI symptoms R39.9 [facility] [id number] [place] [address] 21525- 2155 Mar, [facility] [id number] [place] [address] 04452- 0781 Mar, Panic attacks F41.0 and Chronic pain G89.29 [facility] [address] 86949- 8321 Mar, [facility] [id number] [place] [address] 70293- 8155 Mar, Dysuria R30.0 [facility] [id number] [place] [address] 11405- 9283 Mar, Dysuria R30.0 [facility] [id number] [place] [address] 57356- 1337 Feb, Chronic pain G89.29 ; Shortness of breath R06.02 ; Weight loss R63.4 ; Encounter for immunization Z23 ; Bone pain M89.8X9 ; Right anterior knee pain M25.561 and Cough R05 [facility] [id number] [place] [address] 90211- 0440 Feb, Shortness of breath R06.02 [facility] [id number] [place] [address] 68719- 2797 Feb, [facility] [id number] [place] [address] 98424- 7158 Feb, Panic attacks F41.0 and Chronic pain G89.29 [facility] [address] 94387- 9889 Feb, [facility] [address] 88710- 3368 04 Feb, 2017 Panic attacks F41.0 ; Shortness of breath R06.02 and Encounter for immunization Z23 [facility] [address] 97043- 1635 Jan, [facility] [address] 17848- 4345 15 Jan, 2017 Anxiety F41.9 and Chronic pain G89.29 [facility] [address] 06159- 5468 Dec, Anxiety F41.9 and Chronic pain G89.29 [facility] [address] 37998- 6359 Nov, Chronic pain G89.29 [facility] [address] 04889- 3263 Nov, Anxiety F41.9 [facility] [address] 13587- 7976 Nov, Chronic pain G89.29 ; Essential hypertension I10 and Other emphysema J43.8 [facility] [id number] [place] [address] 51220- 3276 Oct, Anxiety F41.9 [facility] [address] 12284- 5174 Oct, [facility] [address] 99781- 8281 Oct, Chronic pain G89.29 [facility] [address] 71898- 5124 September, Recurrent UTI N39.0 ; Neuropathy G62.9 and Anxiety F41.9 [facility] [id number] [place] [address] 07649- 5372 September, [facility] [id number] [place] [address] 47899- 0864 September, Chronic pain G89.29 [facility] [id number] [place] [address] 56192- 4051 September, [facility] [address] 11902- 8890 Aug, Post-traumatic stress disorder, chronic F43.12 ; Chronic urinary tract infection N39.0 ; Gastroesophageal reflux disease without esophagitis K21.9 ; Chronic pain G89.29 ; Essential hypertension I10 and Tobacco abuse Z72.0 [facility] [id number] [place] [address] 13636 -5979 Aug, [facility] [address] 81602- 8735 Aug, Chronic pain G89.29 [facility] [address] 42136- 7447 Aug, Insomnia, unspecified type G47.00 [facility] [id number] [place] [address] 91047- 0456 Aug, [facility] [id number] [place] [address] 08763- 8171 Jul, Chronic pain G89.29 [facility] [id number] [place] [address] 58139- 5091 Jul, [facility] [address] 44824- 6463 Jul, [facility] [id number] [place] [address] 55123- 4309 Jul, [facility] [address] 06691- 8895 15 Jul, 2016 Recurrent UTI (urinary tract infection) N39.0 [facility] [address] [place] [address] 56061- 7198 14 Jul, 2016 [facility] [id number] [place] [address] 74291- 0101 27 Jun, 2016 Chronic pain G89.29 [facility] [id number] [place] [address] 37020- 9818 17 Jun, 2016 [facility] [id number] [place] [address] 44220- 8530 Jun, [facility] [id number] [place] [address] 38253- 4600 May, Chronic pain G89.29 [facility] [id number] [place] [address] 91389- 3729 May, Weight loss R63.4 and Shortness of breath R06.02 [facility] [id number] [place] [address] 16407- 6396 May, Chronic pain G89.29 ; Weight loss R63.4 and Tobacco abuse Z72.0 [facility] [address] [place] [address] 03934- 3662 May, [facility] [address] [place] [address] 40319- 7828 May, Hypoxia R09.02 [facility] [id number] [place] [address] 36468- 7868 May, [facility] [id number] [place] [address] 18064- 5829 May, Pulmonary emphysema, unspecified emphysema type J43.9 [facility] [address] [place] [address] 83463 -2990 May, [facility] [id number] [place] [address] 52660- 9426 May, [facility] [id number] [place] [address] 63674- 9573 May, [facility] [address] 68444- 8459 May, Chronic pain G89.29 ; Encounter for immunization Z23 ; Right anterior knee pain M25.561 and Cough R05 [facility] [address] 74749- 8124 Apr, Chronic pain G89.29 [facility] [id number] [place] [address] 48429- 6623 Apr, [facility] [address] 98747- 6007 Apr, Generalized anxiety disorder F41.1 and Depression, unspecified depression type F32.9 [facility] [address] 72753- 5222 Apr, Chronic pain G89.29 ; Hypokalemia E87.6 and Insomnia, unspecified type G47.00 [facility] [id number] [place] [address] 86532- 7457 Apr, [facility] [id number] [place] [address] 86351- 5187 Apr, Chronic pain G89.29 [facility] [id number] [place] [address] 82462- 9342 Apr, [facility] [id number] [place] [address] 55384- 7497 Mar, [facility] [id number] [place] [address] 62320- 5215 Mar, Insomnia, unspecified type G47.00 [facility] [id number] [place] [address] 40191- 2425 Mar, Chronic pain G89.29 [facility] [id number] [place] [address] 23191- 2094 Mar, [facility] [address] [address]- 6978 Feb, [facility] [address] [address]- 0033 Feb, [facility] [id number] [place] [address] 80398- 2574 Feb, [facility] [id number] [place] [address] 40823- 2278 Feb, [facility] [id number] [place] [address] 62756- 4905 Feb, [facility] [id number] [place] [address] 67934- 2406 29 Jan, 2016 [facility] [id number] [place] [address] 22071- 6618 26 Jan, 2015 [facility] [address] [address]- 3123 20 Jan, 2015 [facility] [id number] [place] [address] 62161- 1702 13 Jan, 2015 [facility] [address] [address]- 3881 12 Jan, 2016 [facility] [address] [place] [address] 39198- 2984 07 Jan, 2015 Chronic pain G89.29 [facility] [address] [address]- 9068 Jan, 2015 Chronic pain G89.29 and Fibromyalgia M79.7 [facility] [address] [address]- 2028 Dec, Depression, unspecified depression type F32.9 and Generalized anxiety disorder 300.02 [facility] [address] [address]- 9839 Dec, Dysthymia F34.1 ; Insomnia, unspecified type G47.00 and Chronic pain G89.29 [facility] [address] [facility] [id number] [place] [address] 06218- 2712 Dec, Chronic pain G89.29 [facility] [id number] [place] [address] 55866 2546 Dec, Insomnia, unspecified type G47.00 [facility] [address] [facility] [id number] [place] [address] 15250 2542 Dec, Fibromyalgia M79.7 and Chronic pain G89.29 [facility] [id number] [place] [address] 95744- 8876 Dec, [facility] [id number] [place] [address] 58422 2546 Dec, [facility] [id number] [place] [address] 45751- 6494 Dec, [facility] [id number] [place] [address] 88968 2546 Dec, [facility] [id number] [place] [address] 03111- 2420 Dec, Chronic pain G89.29 [facility] [id number] [place] [address] 16116 2549 Dec, [facility] [id number] [place] [address] 88353 2541 Dec, [facility] [id number] [place] [address] 22911 2546 Dec, [facility] [id number] [place] [address] 45347 2548 Dec, Chronic pain G89.29 and Dysthymia F34.1 [facility] [id number] [place] [address] 21725 2543 Nov, [facility] [id number] [place] [address] 75550- 3046 Nov, Hypokalemia E87.6 and Chronic pain G89.29 [facility] [address] 76363- 9729 Nov, Back pain M54.9 and Pain in right knee M25.561 [facility] [address] 98710- 2644 Nov, [facility] [address] 30101- 1256 Nov, Chronic pain G89.29 [facility] [address] 72340- 6046 Nov, Chronic pain G89.29 ; Weight loss R63.4 ; Bone pain M89.8X9 and Insomnia, unspecified type G47.00 [facility] [address] 81156- 1126 Nov, Chronic pain G89.29 [facility] [address] 67963- 9106 Nov, Chronic pain G89.29 [facility] [address] 35005- 2043 30 Oct, 2015 Chronic pain G89.29 [facility] [id number] [place] [address] 12123- 7376 Oct, UTI symptoms R39.9 [facility] [id number] [place] [address] 08337- 5894 27 Oct, 2015 Chronic pain G89.29 [facility] [address] 98835- 5148 20 Oct, 2015 Chronic pain G89.29 [facility] [id number] [place] [address] 42583- 4480 13 Oct, 2015 Chronic pain G89.29 [facility] [address] 66958- 7909 Oct, Right upper quadrant abdominal pain R10.11 [facility] [address] [address]- 3790 Oct, Chronic pain G89.29 [facility] [address] [address]- 5665 Oct, [facility] [address] [place] [address] 01190- 6518 September, Chronic pain G89.29 [facility] [address] [place] [address] 53195- 9536 September, Dysuria R30.0 and Urinary tract infection without hematuria , site unspecified N39.0 [facility] [address] [place] [address] 44223- 8291 September, [facility] [id number] [place] [address] 92848- 4325 September, Dysuria R30.0 [facility] [id number] [place] [address] 76043- 5189 September, Chronic pain G89.29 [facility] [id number] [place] [address] 43734- 1628 September, Chronic pain G89.29 and Essential hypertension I10 [facility] [address] [address] September, [facility] [id number] [place] [address] 08185- 6612 September, [facility] [id number] [place] [address] 54546- 9971 September, [facility] [id number] [place] [address] 16396- 9387 Aug, UTI symptoms R39.9 [facility] [address] [address] Aug, Dysuria R30.0 [facility] [address] [address] Aug, [facility] [id number] [place] [address] 77913- 4237 Aug, [facility] [id number] [place] [address] 14345- 1910 Aug, [facility] [id number] [place] [address] 02653- 9809 Aug, Chronic pain G89.29 [facility] [id number] [place] [address] 81104- 0128 Aug, Dysthymia F34.1 [facility] [id number] [place] [address] 73793- 4912 Aug, Conjunctivitis, unspecified conjunctivitis type, unspecified laterality H10.9 [facility] [id number] [place] [address] 15421- 6853 Jul, Chronic pain G89.29 ; Back pain M54.9 ; Tobacco abuse Z72.0 and Weight decrease R63.4 [facility] [id number] [place] [address] 92797- 3215 Jul, [facility] [id number] [place] [address] 85319- 7816 Jul, [facility] [id number] [place] [address] 63974- 3966 24 Jul, 2015 Chronic pain G89.29 [facility] [address] [address]- 4[address] Jul, [facility] [id number] [place] [address] 08299- 0317 Jul, [facility] [id number] [place] [address] 25504- 5296 Jul, [facility] [id number] [place] [address] 90104- 4611 17 Jul, 2015 [facility] [address] [address] 17 Jul, 2015 Chronic pain G89.29 [facility] [address] [address]- 2848 16 Jul, 2015 Chronic pain G89.29 [facility] [id number] [place] [address] 14462- 5062 15 Jul, 2015 [facility] [id number] [place] [address] 40583- 8933 Jul, [facility] [id number] [place] [address] 58784- 7443 Jul, [facility] [id number] [place] [address] 91654- 7660 Jul, [facility] [address] [id number] [place] [address] 76510- 6436 Jun, [facility] [id number] [place] [address] 45693- 6358 Jun, Depression, unspecified depression type F32.9 [facility] [id number] [place] [address] 02385- 4532 Jun, Pain in right knee M25.561 [facility] [id number] [place] [address] 54870- 2866 24 Jun, 2015 Chronic pain G89.29 ; Back pain M54.9 ; Bone pain M89.8X9 and Weight loss R63.4 [facility] [id number] [place] [address] 38448- 6163 Jun, [facility] [id number] [place] [address] 98378- 0351 May, [facility] [address] [address]- 6235 May, UTI symptoms R39.9 ; Pain in right knee M25.561 ; Right low back pain, with sciatica presence unspecified M54.5 ; Right foot pain M79.671 ; Hypokalemia E87.6 and Screening, lipid Z13.220 [facility] [id number] [place] [address] 89509- 5953 May, [facility] [id number] [place] [address] 26501- 4538 May, [facility] [id number] [place] [address] 09994- 5994 Mar, [facility] [id number] [place] [address] 79368- 5820 Mar, [facility] [id number] [place] [address] 65709- 9344 Mar, Hypokalemia E87.6 [facility] [address] [address]- 8316 Mar, Pain in right leg M79.604 ; Encounter for immunization Z23 ; Pain in right knee M25.561 and Hypokalemia E87.6 [facility] [id number] [place] [address] 19104- 3032 Jan, [facility] [id number] [place] [address] 13102- 5311 Jan, [facility] [id number] [place] [address] 54493 2541 Jan, Abdominal pain, generalized 789.07 [facility] [id number] [place] [address] 75236 2548 Jan, Abdominal pain, generalized 789.07 [facility] [id number] [place] [address] 20918- 1174 Dec, [facility] [id number] [place] [address] 57798- 5347 Dec, [facility] [address] [address]- 9806 Dec, [facility] [id number] [place] [address] 01897- 7790 Nov, Hallux valgus 735.0 and Hammertoe 735.4 [facility] [id number] [address]- 1476 Nov, [facility] [id number] [place] [address] 54158- 2049 Nov, Hallux valgus 735.0 and Hammer toe 735.4 [facility] [id number] [place] [address] 29261- 7926 Oct, [facility] [id number] [place] [address] 59915- 2866 Oct, [facility] [id number] [place] [address] 60047- 8421 Oct, Pre-op evaluation V72.84 [facility] [address] [address]- 7822 Oct, [facility] [id number] [place] [address] 02793- 0136 Oct, [facility] [address] [address]- 5083 September, [facility] [address] [address] 2546 September, [facility] [id number] [address]- 3736 September, Hallux valgus (acquired) 735.0 and Other hammer toe ( acquired) 735.4 [facility] [id number] [address]- 2546 Aug, [facility] [id number] [place] [address] 48484- 0760 Aug, [facility] [place] [facility] [address] [id number] [place] [address]- 9704 Jul, [facility] [place] [facility] [address] [id number] [place] [address]- 9843 Jul, [facility] [place] [facility] [address] [id number] [place] [address]- 1401 Jul, [facility] [place] [facility] [address] [id number] [place] [address]- 8455 Jul, [facility] [place] [facility] [address] [id number] [place] [address]- 8186 Jul, [facility] [place] [facility] [address] [id number] [place] [address]- 0589 Jul, [facility] [place] [facility] [address] [facility] [id number] [place] [address]- 4699 Jul, [facility] [place] [facility] [address] [id number] [place] [address]- 5920 Jul, [facility] [place] [facility] [address] [id number] [place] [address]- 4913 Jun, [facility] [place] [facility] [address] [facility] [id number] [place] [address]- 2458 Jun, [facility] [place] [facility] [address] [id number] [place] [address]- 2992 Jun, 2014 [facility] [place] [facility] [address] [id number] [place] [address]- 6506 Jun, [facility] [place] [facility] [address] [id number] [place] [address]- 5031 Jun, [facility] [place] [facility] [address] [id number] [place] [address]- 8545 Jun, [facility] [place] [facility] [address] [facility] [id number] [place] [address]- 7423 Jun, [facility] [place] [facility] [address] [id number] [place] [address]- 4921 Jun, [facility] [address] [id number] [place] [address]- 4543 Jun, [facility] [place] [facility] [address] [id number] [place] [address]- 0576 Jun, [facility] [place] [facility] [address] [id number] [place] [address]- 9489 May, [facility] [place] [facility] [address] [id number] [place] [address]- 5711 May, [facility] [place] [facility] [address] [id number] [place] [address]- 4171 May, [facility] [place] [facility] [address] [id number] [place] [address]- 9537 May, [facility] [place] [facility] [address] [id number] [place] [address]- 2406 May, [facility] [address] [id number] [place] [address]- 6317 May, [facility] [place] [facility] [address] [id number] [place] [address]- 6099 May, [facility] [place] [facility] [address] [id number] [place] [address]- 0256 May, [facility] [place] [facility] [address] [id number] [place] [address]- 9310 May, [facility] [place] [facility] [address] [id number] [place] [address]- 6539 May, [facility] [place] [facility] [address] [id number] [place] [address]- 3332 May, [facility] [place] [facility] [address] [id number] [place] [address]- 7716 May, [facility] [place] [facility] [address] [id number] [place] [address]- 5406 May, [facility] [place] [facility] [address] [id number] [place] [address]- 0929 May, [facility] [place] [facility] [address] [id number] [place] [address]- 6109 May, [facility] [place] [facility] [address] [id number] [place] [address]- 4604 May, [facility] [place] [facility] [address] [id number] [place] [address]- 7470 May, [facility] [place] [facility] [address] [id number] [place] [address]- 5773 May, [facility] [place] [facility] [address] [id number] [place] [address]- 4810 Apr, [facility] [place] [facility] [address] [id number] [place] [address]- 3635 Apr, [facility] [place] [facility] [address] [id number] [place] [address]- 5767 Apr, [facility] [place] [facility] [address] [id number] [place] [address]- 0239 Apr, [facility] [place] [facility] [address] [id number] [place] [address]- 7223 Apr, [facility] [place] [facility] [address] [id number] [place] [address]- 7362 Apr, [facility] [place] [facility] [address] [id number] [place] [address]- 5817 Apr, [facility] [place] [facility] [address] [id number] [place] [address]- 6893 Apr, [facility] [place] [facility] [address] [id number] [place] [address]- 0869 Apr, [facility] [place] [facility] [address] [id number] [place] [address]- 9096 Mar, [facility] [place] [facility] [address] [id number] [place] [address]- 2794 Mar, [facility] [place] [facility] [address] [id number] [place] [address]- 1556 Mar, [facility] [place] [facility] [address] [id number] [place] [address]- 2518 Mar, [facility] [place] [facility] [address] [id number] [place] [address]- 0222 Mar, [facility] [place] [facility] [address] [id number] [place] [address]- 1946 Feb, [facility] [place] [facility] [address] [id number] [place] [address]- 4956 Feb, [facility] [place] [facility] [address] [id number] [place] [address]- 2753 Feb, [facility] [place] [facility] [address] [id number] [place] [address]- 8796 Feb, [facility] [place] [facility] [address] [id number] [place] [address]- 5816 Feb, [facility] [place] [facility] [address] [id number] [place] [address]- 1089 Feb, [facility] [place] [facility] [address] [id number] [place] [address]- 9290 Feb, [facility] [place] [facility] [address] [id number] [place] [address]- 4303 Feb, [facility] [place] [facility] [address] [id number] [address]- 7257 Feb, [facility] [place] [facility] [address] [id number] 2846 Feb, [facility] [place] [facility] [address] [id number] [place] [address]- 7225 Feb, [facility] [place] [facility] [address] [id number] [place] 8108 Feb, [facility] [place] [facility] [address] [id number] [place] [address]- 9913 07 Feb, 2013 [facility] [place] [facility] [address] [id number] [place] [address]- 1409 Feb, [facility] [place] [facility] [address] [id number] [place] [address]- 4296 Feb, 2013 [facility] [place] [facility] [address] [id number] [place] [address]- 1515 Feb, [facility] [place] [facility] [address] [id number] [place] [address]- 2386 Jan, 2013 [facility] [place] [facility] [address] [id number] [place] [address]- 3794 23 Jan, 2013 [facility] [place] [facility] [address] [id number] [place] [address]- 9826 20 Jan, 2014 [facility] [place] [facility] [address] [id number] [place] [address]- 9321 19 Jan, 2013 [facility] [place] [facility] [address] [id number] [place] [address]- 9289 11 Jan, 2014 [facility] [place] [facility] [address] [id number] [place] [address]- 7607 Jan, [facility] [place] [facility] [address] [id number] [place] [address]- 5388 Jan, [facility] [place] [facility] [address] [id number] [place] [address]- 7618 Jan, 2013 [facility] [place] [facility] [address] [id number] [place] [address]- 6694 Dec, [facility] [place] [facility] [address] [id number] [place] [address]- 1686 Dec, [facility] [place] [facility] [address] [id number] [place] [address]- 0957 Nov, [facility] [place] [facility] [address] [id number] [place] [address]- 1138 Nov, [facility] [place] [facility] [address] [id number] [place] [address]- 8019 Nov, [facility] [place] [facility] [address] [id number] [place] [address]- 5997 Nov, [facility] [place] [facility] [address] [id number] [place] [address]- 6132 Nov, [facility] [place] [facility] [address] [id number] [place] [address]- 5138 Nov, [facility] [place] [facility] [address] [id number] [place] [address]- 3342 Nov, [facility] [place] [facility] [address] [id number] [place] [address]- 5498 Nov, [facility] [place] [facility] [address] [id number] [place] [address]- 8253 Nov, [facility] [place] [facility] [address] [id number] [place] [address]- 0483 Oct, [facility] [place] [facility] [address] [id number] [place] [address]- 9667 Oct, [facility] [place] [facility] [address] [id number] [place] [address]- 3997 Oct, [facility] [place] [facility] [address] [id number] [place] [address]- 8674 Oct, [facility] [place] [facility] [address] [id number] [place] [address]- 7299 Oct, [facility] [place] [facility] [address] [id number] [place] [address]- 1022 Oct, [facility] [place] [facility] [address] [id number] [place] [address]- 9992 September, [facility] [place] [facility] [address] [id number] [place] [address]- 7054 September, [facility] [place] [facility] [address] [id number] [place] [address]- 3734 September, [facility] [address] [id number] [place] 7746 September, [facility] [address] [id number] [place] [address]- 2295 September, [facility] [address] [id number] [place] [address]- 0673 September, [facility] [address] [id number] [place] [address]- 6990 September, [facility] [address] [id number] [place] 5486 September, [facility] [address] [id number] [place] [address]- 1033 September, [facility] [address] [id number] [place] [address]- 4727 September, [facility] [address] [id number] [place] [address]- 7023 September, [facility] [address] [id number] [place] [address]- 4357 September, [facility] [address] [id number] [place] [address]- 6678 September, [facility] [address] [id number] [place] [address]- 5928 September, [facility] [address] [id number] [place] [address]- 5627 September, [facility] [place] [facility] [address] [id number] [place] 6441 September, [facility] [place] [facility] [address] [id number] [place] 2247 September, [facility] [address] [id number] [place] [address]- 5365 September, [facility] [place] [facility] [address] [id number] [place] [address]- 4860 September, [facility] [place] [facility] [address] [id number] [place] [address]- 7309 September, [facility] [place] [facility] [address] [id number] [place] [address]- 1888 Aug, [facility] [place] [facility] [address] [id number] [place] [address]- 8094 Aug, [facility] [place] [facility] [address] [id number] [place] [address]- 1537 Aug, [facility] [place] [facility] [address] [id number] [place] [address]- 5512 Aug, [facility] [place] [facility] [address] [id number] [place] [address]- 2299 Aug, [facility] [place] [facility] [address] [id number] [place] [address]- 5697 Aug, [facility] [place] [facility] [address] [id number] [place] [address]- 1155 Aug, [facility] [place] [facility] [address] [id number] [place] [address]- 2212 Aug, [facility] [place] [facility] [address] [id number] [place] [address]- 0777 Aug, [facility] [place] [facility] [address] [id number] [place] [address]- 9707 Aug, [facility] [place] [facility] [address] [id number] [place] [address]- 0967 Aug, [facility] [place] [facility] [address] [id number] [place] [address]- 4905 Aug, [facility] [place] [facility] [address] [id number] [place] [address]- 6945 Aug, [facility] [place] [facility] [address] [id number] [place] [address]- 2048 Aug, [facility] [place] [facility] [address] [id number] [place] [address]- 8228 Aug, [facility] [place] [facility] [address] [id number] [place] [address]- 0951 Jul, [facility] [place] [facility] [address] [id number] [place] [address]- 4046 Jul, [facility] [place] [facility] [address] [id number] [place] [address]- 3787 Jul, [facility] [place] [facility] [address] [id number] [place] [address]- 9619 Jul, [facility] [place] [facility] [address] [id number] [place] [address]- 4840 Jul, [facility] [place] [facility] [address] [id number] [place] [address]- 1236 Jul, [facility] [place] [facility] [address] [id number] [place] [address]- 5701 Jul, [facility] [place] [facility] [address] [id number] [place] [address]- 6292 Jul, [facility] [place] [facility] [address] [id number] [place] [address]- 1890 Jul, [facility] [place] [facility] [address] [id number] [place] [address]- 7313 Jul, [facility] [place] [facility] [address] [id number] [place] [address]- 3916 Jul, [facility] [place] [facility] [address] [id number] [place] [address]- 9706 Jul, [facility] [place] [facility] [address] [id number] [place] [address]- 0083 Jul, [facility] [place] [facility] [address] [id number] [place] [address]- 1053 Jul, [facility] [place] [facility] [address] [id number] [place] [address]- 8839 Jul, [facility] [place] [facility] [address] [id number] [place] [address]- 9659 Jun, [facility] [place] [facility] [address] [id number] [place] [address]- 4996 Jun, [facility] [place] [facility] [address] [id number] [place] [address]- 8246 Jun, [facility] [place] [facility] [address] [id number] [place] [address]- 4964 Jun, [facility] [place] [facility] [address] [id number] [place] [address]- 1016 Jun, [facility] [place] [facility] [address] [id number] [place] [address]- 0716 Jun, [facility] [place] [facility] [address] [id number] [place] [address]- 7117 May, [facility] [place] [facility] [address] [id number] [place] [address]- 1360 May, [facility] [place] [facility] [address] [id number] [place] [address]- 5966 May, [facility] [place] [facility] [address] [id number] [place] [address]- 8997 May, [facility] [place] [facility] [address] [id number] [place] [address]- 4193 May, [facility] [place] [facility] [address] [id number] [place] [address] May, [facility] [place] [facility] [address] [id number] [place] [address] May, [facility] [place] [facility] [address] [id number] [place] [address] May, [facility] [place] [facility] [address] [id number] [place] [address] May, [facility] [address] [id number] [place] [address] May, [facility] [place] [facility] [address] [id number] [place] [address] May, [facility] [place] [facility] [address] [id number] [place] [address] May, [facility] [place] [facility] [address] [id number] [place] [address] May, [facility] [place] [facility] [address] [id number] [place] [address] May, [facility] [place] [facility] [address] [id number] [place] [address]559 May, [facility] [place] [facility] [address] [id number] [place] [address]- [address] Apr, [facility] [place] [facility] [address] [id number] [place] [address]199 Apr, [facility] [place] [facility] [address] [id number] [place] [address]- 1577 Apr, [facility] [place] [facility] [address] [id number] [place] [address]- 67[address] Apr, [facility] [place] [facility] [address] [id number] [place] [address] Apr, [facility] [place] [facility] [address] [id number] [place] [address]- [address]268 Apr, [facility] [place] [facility] [address] [id number] [place] [address]- [address] Apr, [facility] [place] [facility] [address] [id number] [place] [address]- [address] Apr, [facility] [place] [facility] [address] [id number] [place] [address]- 17[address] Apr, [facility] [place] [facility] [address] [id number] [place] [address]- [address] Apr, [facility] [address] [id number] [place] [address] Mar, [facility] [address] [id number] [place] [address]- [address]68 Mar, [facility] [address] [id number] [place] [address]- [address]74 Mar, [facility] [address] [id number] [place] [address]- [address]76 Mar, [facility] [address] [id number] [place] [address]- [address]196 Mar, [facility] [address] [id number] [place] [address]- [address]853 Mar, [facility] [address] [id number] [place] [address]- [address] Mar, [facility] [address] [id number] [place] [address]47 Mar, [facility] [address] [id number] [place] [address]- [address] Mar, [facility] [address] [id number] [place] [address] Mar, [facility] [address] [id number] [place] [address]70 Mar, [facility] [address] [id number] [place] [address]- 480[address] Mar, [facility] [place] [facility] [address] [id number] [place] [address] Mar, [facility] [place] [facility] [address] [id number] [place] [address]- 6827 Mar, [facility] [address] [id number] [place] [address]- 64[address] Mar, [facility] [place] [facility] [address] [id number] [place] [address]- [address] 18 Mar, 2013 [facility] [place] [facility] [address] [id number] [place] [address] Mar, [facility] [place] [facility] [address] [id number] [place] [address]- 7665 Mar, [facility] [place] [facility] [address] [id number] [place] [address] Mar, [facility] [place] [facility] [address] [id number] [place] [address]- 459[address] Mar, [facility] [place] [facility] [address] [id number] [place] [address]- [address] Mar, [facility] [place] [facility] [address] [id number] [place] [address]- 0463 Mar, [facility] [place] [facility] [address] [id number] [place] [address] Mar, [facility] [place] [facility] [address] [id number] [place] [address] Feb, [facility] [place] [facility] [address] [id number] [place] [address] Feb, [facility] [place] [facility] [address] [id number] [place] [address] 97[address] Feb, [facility] [place] [facility] [address] [id number] [place] [address] 16 Feb, 2013 [facility] [place] [facility] [address] [id number] [place] [address] 15 Feb, 2013 [facility] [place] [facility] [address] [id number] [place] [address] Feb, [facility] [place] [facility] [address] [facility] [id number] [place] [address] 7070 Feb, [facility] [place] [facility] [address] [id number] [place] [address] 1749 Feb, [facility] [address] [id number] [place] [address]- [address] Feb, [facility] [place] [facility] [address] [id number] [place] [address]- 4092 Feb, [facility] [place] [facility] [address] [id number] [place] [address] 30 Jan, 2013 [facility] [place] [facility] [address] [id number] [place] [address]- [address]65 26 Jan, 2013 [facility] [place] [facility] [address] [id number] [place] [address]- [address]484 24 Jan, 2013 [facility] [place] [facility] [address] [id number] [place] [address]- [address] 23 Jan, 2013 [facility] [place] [facility] [address] [id number] [place] [address]- [address]13 17 Jan, 2013 [facility] [place] [facility] [address] [id number] [place] [address]- 4074 Dec, [facility] [place] [facility] [address] [id number] [place] [address]- 8658 Dec, [facility] [place] [facility] [address] [id number] [place] [address]- 1429 Dec, [facility] [place] [facility] [address] [id number] [place] [address]- 6266 15 Dec, 2012 [facility] [place] [facility] [address] [id number] [place] [address]- [address]134 14 Dec, 2012 [facility] [place] [facility] [address] [id number] [place] [address]- 1245 Dec, [facility] [place] [facility] [address] [id number] [place] [address]- 6814 Dec, [facility] [place] [facility] [address] [id number] [place] [address]- 1706 Nov, [facility] [place] [facility] [address] [id number] [place] [address]- [address] 16 Nov, 2012 [facility] [address] [id number] [place] [address]- 8786 15 Nov, 2012 [facility] [place] [facility] [address] [id number] [place] [address]- [address]46 05 Nov, 2012 [facility] [address] [id number] [place] [address]- [address]46 Nov, [facility] [place] [facility] [address] [id number] [place] [address] Oct, [facility] [address] [id number] [place] [address] Oct, [facility] [place] [facility] [address] [id number] [place] [address] Oct, [facility] [address] [id number] [place] [address] September, [facility] [address] [id number] [place] [address] September, [facility] [address] [id number] [place] [address] September, [facility] [address] [id number] [place] [address] September, [facility] [place] [facility] [address] [id number] [place] [address]336 September, [facility] [address] [id number] [place] [address]- [address]46 September, [facility] [place] [facility] [address] [id number] [place] [address] 2546 September, [facility] [place] [facility] [address] [id number] [place] [address] Aug, [facility] [place] [facility] [address] [id number] [place] [address]- 8128 23 Aug, 2012 [facility] [place] [facility] [address] [id number] [place] [address]- 6692 11 Aug, 2012 [facility] [place] [facility] [address] [id number] [place] [address]- 5942 29 Jul, 2012 [facility] [place] [facility] [address] [id number] [place] [address]- 0324 27 Jul, 2012 [facility] [place] [facility] [address] [id number] [place] [address]- 5899 26 Jul, 2012 [facility] [place] [facility] [address] [id number] [place] [address]- 6473 20 Jul, 2012 [facility] [place] [facility] [address] [id number] [place] [address]- 7705 18 Jul, 2012 [facility] [place] [facility] [address] [facility] [id number] [place] [address]- 3666 18 Jul, 2012 [facility] [place] [facility] [address] [id number] [place] [address]- 9646 13 Jul, 2012 [facility] [place] [facility] [address] [id number] [place] [address]- 9024 28 Jun, 2012 [facility] [place] [facility] [address] [facility] [id number] [place] [address]- 1414 27 Jun, 2012 [facility] [place] [facility] [address] [facility] [id number] [place] [address]- 9331 22 Jun, 2012 [facility] [place] [facility] [address] [id number] [place] [address]- 2868 20 Jun, 2012 [facility] [place] [facility] [address] [id number] [place] [address]- 1502 15 Jun, 2012 [facility] [place] [facility] [address] [id number] [place] [address]- 3621 15 Jun, 2012 [facility] [place] [facility] [address] [facility] [id number] [place] [address]- 3109 13 Jun, 2012 [facility] [place] [facility] [address] [id number] [place] [address]- 9566 Jun, [facility] [address] [id number] [place] [address]- 9406 Jun, [facility] [place] [facility] [address] [id number] [place] [address]- 2546 Jun, [facility] [address] [id number] [place] [address]- 7706 May, [facility] [place] [facility] [address] [id number] [place] [address] 2542 May, [facility] [address] [id number] [place] [address]- 1366 May, [facility] [address] [id number] [place] [address]- 4931 May, [facility] [address] [id number] [place] [address]- 0904 May, [facility] [address] [id number] [place] [address]- 4131 May, [facility] [address] [id number] [place] [address]- 5224 31 Apr, 2012 [facility] [address] [id number] [place] [address] 2546 31 Apr, 2012 [facility] [address] [id number] [place] [address] 2546 Apr, [facility] [place] [facility] [address] [id number] [place] [address] 2547 28 Apr, 2012 [facility] [place] [facility] [address] [id number] [place] [address] 2546 26 Apr, 2012 [facility] [place] [facility] [address] [id number] [place] [address]- 2546 20 Apr, 2012 [facility] [place] [facility] [address] [id number] [place] [address]- 6453 Apr, [facility] [place] [facility] [address] [id number] [place] [address]- 6209 Mar, [facility] [place] [facility] [address] [id number] [place] [address]- 5240 Mar, [facility] [place] [facility] [address] [facility] [id number] [place] [address]- 0147 Mar, [facility] [place] [facility] [address] [id number] [place] [address]- 7921 Mar, [facility] [place] [facility] [address] [id number] [place] [address]- 1806 Mar, [facility] [place] [facility] [address] [id number] [place] [address] 3876 Mar, [facility] [place] [facility] [address] [id number] [place] [address]- 0681 Mar, [facility] [place] [facility] [address] [id number] [place] [address] 1174 Mar, [facility] [place] [facility] [address] [id number] [place] [address]- 7093 Mar, [facility] [place] [facility] [address] [id number] [place] [address]- 9325 Mar, [facility] [place] [facility] [address] [id number] [place] [address] 8129 Mar, [facility] [place] [facility] [address] [id number] [place] [address]- 3687 Mar, [facility] [place] [facility] [address] [id number] [place] [address]- 8405 Mar, [facility] [place] [facility] [address] [facility] [id number] [place] [address]- 0286 Mar, [facility] [place] [facility] [address] [facility] [id number] [place] [address]- 5934 Mar, [facility] [place] [facility] [address] [id number] [place] [address]- 4151 Mar, [facility] [place] [facility] [address] [id number] [place] [address]- 0915 Mar, [facility] [place] [facility] [address] [id number] [place] [address]- 0374 Feb, [facility] [place] [facility] [address] [id number] [place] [address]- 6976 Feb, 2011 [facility] [place] [facility] [address] [id number] [place] [address]- 1066 Feb, [facility] [place] [facility] [address] [id number] [place] [address]- 7171 Feb, [facility] [place] [facility] [address] [id number] [place] [address]- 8022 Feb, [facility] [place] [facility] [address] [id number] [place] [address]- 3503 Feb, [facility] [place] [facility] [address] [id number] [place] [address]- 4872 Feb, [facility] [place] [facility] [address] [id number] [place] [address]- 9374 Feb, [facility] [place] [facility] [address] [facility] [id number] [place] [address]- 8408 Feb, [facility] [place] [facility] [address] [id number] [place] [address]- 3743 Feb, [facility] [place] [facility] [address] [id number] [place] [address]- 1827 Feb, [facility] [place] [facility] [address] [id number] [place] [address]- 9073 27 Jan, 2011 [facility] [place] [facility] [address] [id number] [place] [address]- 6926 25 Jan, 2012 [facility] [place] [facility] [address] [id number] [place] [address]- 5187 13 Jan, 2012 [facility] [place] [facility] [address] [id number] [place] [address]- 3856 12 Jan, 2012 [facility] [place] [facility] [address] [id number] [place] [address]- 7213 Jan, [facility] [place] [facility] [address] [id number] [place] [address]- 1074 Dec, [facility] [place] [facility] [address] [id number] [place] [address]- 9001 Dec, [facility] [place] [facility] [address] [id number] [place] [address]- 7144 Dec, [facility] [place] [facility] [address] [id number] [place] [address]- 1233 Dec, [facility] [place] [facility] [address] [id number] [place] [address]- 4048 Dec, [facility] [place] [facility] [address] [id number] [place] [address]- 8146 Dec, [facility] [place] [facility] [address] [id number] [place] [address]- 7139 Dec, [facility] [place] [facility] [address] [id number] [place] [address]- 1952 Dec, [facility] [place] [facility] [address] [id number] [place] [address]- 0075 Nov, [facility] [place] [facility] [address] [id number] [place] [address]- 5543 Nov, [facility] [place] [facility] [address] [id number] [place] [address]- 2964 Nov, [facility] [place] [facility] [address] [id number] [place] [address]- 3841 Nov, [facility] [place] [facility] [address] [id number] [place] [address]- 3780 Nov, [facility] [place] [facility] [address] [id number] [place] [address]- 2572 Oct, [facility] [address] [id number] [place] [address] Oct, [facility] [place] [facility] [address] [id number] [place] [address]- 1363 September, [facility] [address] [id number] [place] [address]- 8216 September, [facility] [place] [facility] [address] [id number] [place] [address]- 1123 September, [facility] [address] [id number] [place] [address]- 5129 September, [facility] [place] [facility] [address] [id number] [place] [address]- 3640 September, [facility] [address] [id number] [place] [address]- 7750 September, [facility] [place] [facility] [address] [id number] [place] [address]- 5621 September, [facility] [place] [facility] [address] [id number] [place] [address]- 6666 September, [facility] [place] [facility] [address] [id number] [place] [address]- 6195 September, [facility] [place] [facility] [address] [id number] [place] [address]- 1670 September, [facility] [place] [facility] [address] [id number] [place] [address]- 1787 September, [facility] [place] [facility] [address] [id number] [place] [address]- 3612 September, [facility] [place] [facility] [address] [id number] [place] [address]- 8498 September, [facility] [place] [facility] [address] [id number] [place] [address]- 8113 September, [facility] [place] [facility] [address] [id number] [place] [address]- 1754 24 Aug, 2011 [facility] [address] [id number] [place] [address]- 6210 20 Aug, 2011 [facility] [address] [id number] [place] [address]- 2236 13 Aug, 2011 [facility] [address] [id number] [place] [address]- 2530 11 Aug, 2011 [facility] [address] [id number] [place] [address]- 0703 23 Jul, 2011 [facility] [address] [id number] [place] [address]- 1920 13 Jul, 2011 [facility] [address] [id number] [place] [address]- 5483 13 Jul, 2011 [facility] [address] [id number] [place] [address]- 3028 28 Jun, [address] [facility] [address] [id number] [id number] 26 Jun, 2011 [facility] [address] [id number] [place] [address]- 4938 13 Jun, 2011 [facility] [address] [id number] [place] [address]- 2959 10 Jun, 2011 [facility] [address] [id number] [place] [address]- 7516 07 Jun, 2011 [facility] [address] [id number] [place] [address]- 7456 07 Jun, 2011 [facility] [place] [facility] [address] [id number] [place] [address]- 3386 03 Jun, 2011 [facility] [place] [facility] [address] [id number] [place] [address]- 0056 02 Jun, 2011 [facility] [place] [facility] [address] [id number] [place] [address]- 2465 31 May, 2011 [facility] [address] [id number] [place] [address]- 1415 30 May, 2011 [facility] [address] [id number] [place] [address]- 0098 May, [facility] [address] [id number] [place] [address]- 2258 May, [facility] [address] [id number] [place] [address]- 9050 May, [facility] [address] [id number] [place] [address]- 7598 May, [facility] [address] [id number] [place] [address]- 4326 May, [facility] [address] [id number] [place] [address]- 5045 May, [facility] [place] [facility] [address] [id number] [place] [address]- 6549 May, [facility] [address] [id number] [place] [address]- 6395 May, [facility] [place] [facility] [address] [id number] [place] [address]- 8955 May, [facility] [address] [id number] [place] [address]- 0886 May, [facility] [place] [facility] [address] [id number] [place] [address]- 9702 May, [facility] [place] [facility] [address] [id number] [place] [address]- 2847 May, [facility] [place] [facility] [address] [id number] [place] [address]- 8821 30 Apr, 2011 [facility] [place] [facility] [address] [id number] [place] [address]- 3580 16 Apr, 2011 [facility] [place] [facility] [address] [id number] [place] [address]- 2024 05 Apr, 2011 [facility] [place] [facility] [address] [id number] [place] [address]- 3326 17 Mar, 2011 [facility] [place] [facility] [address] [id number] [place] [address] 2546 Mar, [facility] [place] [facility] [address] [id number] [place] [address]- 0426 31 Feb, 2011 [facility] [place] [facility] [address] [id number] [place] [address] 2546 26 Feb, 2011 [facility] [place] [facility] [address] [id number] [place] [address]- 5982 Feb, [facility] [place] [facility] [address] [id number] [place] [address]- 8763 20 Feb, 2011 [facility] [place] [facility] [address] [id number] [place] [address]- 6429 13 Feb, 2011 [facility] [place] [facility] [address] [id number] [place] [address]- 5939 28 Apr, 2010 [facility] [place] [facility] [address] [id number] [place] [address] 2546 22 Apr, 2010 [facility] [place] [facility] [address] [facility] [id number] [place] [address] 2545 16 Apr, 2010 [facility] [place] [facility] [address] [id number] [place] [address] 2546 15 Apr, 2010 [facility] [place] [facility] [address] [id number] [place] [address] 2546 15 Apr, 2010 [facility] [place] [facility] [address] [id number] [place] [address] 2546 Apr, [facility] [place] [facility] [address] [id number] [place] [address] 2546 24 Mar, 2010 [facility] [place] [facility] [address] [id number] [place] [address] 2541 17 Mar, 2010 [facility] [id number] [address]- 3746 17 Mar, 2010 [facility] [id number] [address]- 7563 28 Feb, 2010 [facility] [id number] [address]- 4958 Feb, [facility] [id number] [place] [address]- 5693 Feb, [facility] [id number] [address]- 6421 Feb, [facility] [id number] [place] [address]- 9104 Dec, [facility] [id number] [address]- 9127 Dec, [facility] [id number] [place] [address] 9[address]- 6571 Oct, [facility] [id number] [address]- 4278 Mar, [facility] [id number] [address]- 0799 Mar, [facility] [id number] [address]- 4394 September, IMMUNIZATIONS No Known Immunizations SOCIAL HISTORY Never Assessed REASON FOR VISIT EMR-[facility] PLAN OF CARE VITAL SIGNS MEDICATIONS Unknown [...]
--- OUTSIDE RECORDS SUMMARY | 2018-09-19 09:15 | XMS REPORT ---
Author Author Migration, Doctor Organization [facility] Address Unknown Phone Unavailable Care Team Providers Care Hhas Name Role Phone Migration, Doctor Unavailable Unavailable PROBLEMS Type Condition ICD9-CM Code IAP51-JI Code Onset Dates Condition Status SNOMED Code Problem Hypokalemia E87.6 Active 402549924 Problem Generalized anxiety disorder F41.1 Active 70791416 Problem Pain in right knee M25.561 Active 14129976 Problem Right low back pain, with sciatica presence unspecified M54.5 Active 791577355 Problem Right foot pain M79.671 Active 99393146 Problem UTI symptoms R39.9 Active 38243960 Problem Essential hypertension I10 Active 98526961 Problem Gastroesophageal reflux disease without esophagitis K21.9 Active 862457568 Problem Weight decrease R63.4 Active 558515950 Problem Depression, unspecified depression type F32.9 Active 38302263 Problem Right upper quadrant abdominal pain R10.11 Active 544449012 Problem Tobacco abuse Z72.0 Active 13193748 Problem Insomnia, unspecified type G47.00 Active 317000071 Problem Weight loss R63.4 Active 209564726 Problem Post-traumatic stress disorder, chronic F43.12 Active 70297631 Problem Pulmonary emphysema, unspecified emphysema type J43.9 Active 74451777 Problem Neuropathy G62.9 Active 552198588 Problem Anxiety F41.9 Active 62762123 Problem Other emphysema J43.8 Active 63622148 Problem Other chronic pain G89.29 Active 29833932 Problem Chronic pain G89.29 Active 02300975 Problem Opioid use disorder, moderate, dependence F11.20 Active 42797305 Problem Back pain M54.9 Active 897982394 Problem Bone pain M89.8X9 Active 56142191 Problem Panic attacks F41.0 Active 469872346 Problem Kidney stones N20.0 Active 93305930 Problem Renal calculus, right N20.0 Active 75407648 Problem Generalized abdominal pain R10.84 Active 331312495 ALLERGIES No Information ENCOUNTERS Encounter Location Date Diagnosis [facility] [id number] [address] Feb, [facility] [id number] [place] [address] 18355- 9100 Dec, [facility] [id number] [place] [address] 24726- 9133 Dec, [facility] [id number] [place] [address] 96651- 1954 Dec, Medicare welcome exam Z00.00 [facility] [id number] [place] [address] 71666- 0892 17 Nov, 2017 Opioid use disorder, moderate, dependence F11.20 [facility] [id number] [place] [address] 52920- 7425 16 Nov, 2017 Pelvic pain R10.2 ; Acute pyelonephritis N10 and Essential hypertension I10 [facility] [id number] [place] [address] 16800- 2987 28 Oct, 2017 Medicare welcome exam Z00.00 [facility] [id number] [place] [address] 97333- 5650 Oct, Gross hematuria R31.0 ; Urinary tract infection without hematuria, site unspecified N39.0 and Weakness R53.1 [facility] [id number] [place] [address] 63325- 6285 Oct, [facility] [id number] [place] [address] 53155- 4483 Oct, [facility] [id number] [place] [address] 15128- 3610 Oct, Medicare welcome exam Z00.00 [facility] [id number] [place] [address] 98758- 5243 September, Back pain M54.9 and Right anterior knee pain M25.561 [facility] [id number] [place] [address] 48153- 0791 September, [facility] [address] [address] 4706 September, [facility] [id number] [place] [address] 44627- 0743 September, Essential hypertension I10 [facility] [id number] [place] [address] 45987- 8418 September, [facility] [id number] [place] [address] 02554- 7349 September, RLQ abdominal pain R10.31 ; Low back pain M54.5 and Other chronic pain G89.29 [facility] [id number] [place] [address] 89166- 8429 Aug, Medicare welcome exam Z00.00 [facility] [id number] [place] [address] 44465- 0481 Aug, [facility] [id number] [place] [address] 30730- 9877 Aug, Acute pyelonephritis N10 and Medicare welcome exam Z00.00 [facility] [id number] [place] [address] 89498 -2636 Aug, Dysuria R30.0 and Acute pyelonephritis N10 [facility] [address] [address]- 5300 Aug, [facility] [id number] [place] [address] 99323- 0212 Aug, [facility] [id number] [place] [address] 61601- 0535 Aug, [facility] [id number] [place] [address] 02067- 9350 Aug, [facility] [address] [address]- 8018 Jul, [facility] [id number] [place] [address] 71149- 1616 Jul, Renal calculus, right N20.0 and Medicare welcome exam Z00.00 [facility] [id number] [place] [address] 98485 -2495 Jul, Dysuria R30.0 and Renal calculus, right N20.0 [facility] [id number] [place] [address] 66672- 2133 Jul, Medicare welcome exam Z00.00 [facility] [id number] [place] [address] 77450- 8017 Jun, Gastroesophageal reflux disease without esophagitis K21.9 and Generalized abdominal pain R10.84 [facility] [id number] [place] [address] 44971- 9850 Jun, Medicare welcome exam Z00.00 [facility] [id number] [place] [address] 45548- 5673 Jun, [facility] [id number] [place] [address] 53204- 8745 Jun, Medicare welcome exam Z00.00 and Encounter for screening mammogram for malignant neoplasm of breast Z12.31 [facility] [id number] [place] [address] 07069- 6039 Jun, Chronic pain G89.29 [facility] [id number] [place] [address] 72315- 5854 May, [facility] [id number] [place] [address] 82754- 6805 May, Pelvic pain R10.2 [facility] [id number] [place] [address] 64286- 2000 May, Pelvic pain R10.2 [facility] [id number] [place] [address] 52092 -5558 May, Renal calculus, right N20.0 [facility] [id number] [place] [address] 99826- 0702 May, Hematuria, unspecified type R31.9 and Nephrolithiasis N20.0 [facility] [id number] [place] [address] 71446 -6901 May, Dysuria R30.0 and Nephrolithiasis N20.0 [facility] [id number] [place] [address] 97130- 9979 May, [facility] [id number] [place] [address] 30400 -9803 May, Abdominal pain R10.9 and Kidney stone N20.0 [facility] [id number] [place] [address] 20867- 4170 May, [facility] [id number] [place] [address] 11155- 4168 May, Chronic pain G89.29 and Panic attacks F41.0 [facility] [id number] [place] [address] 83313- 8804 May, Urinary tract infection without hematuria, site unspecified N39.0 [facility] [id number] [place] [address] 20783- 5099 Apr, Right lower quadrant abdominal pain R10.31 and Abnormal serum lipase level R74.8 [facility] [id number] [place] [address] 02486- 5630 Apr, Recurrent urinary tract infection N39.0 [facility] [id number] [place] [address] 12021- 5778 Apr, UTI symptoms R39.9 ; Recurrent urinary tract infection N39.0 and Pelvic pain R10.2 [facility] [id number] [place] [address] 95243- 8998 Apr, Chronic pain G89.29 and Panic attacks F41.0 [facility] [id number] [place] [address] 84967- 5296 Apr, Dysuria R30.0 [facility] [id number] [place] [address] 03985- 9176 Apr, [facility] [id number] [place] [address] 96581- 2035 Apr, Dysuria R30.0 and Urinary tract infection without hematuria , site unspecified N39.0 [facility] [id number] [place] [address] 14574- 5180 Mar, UTI symptoms R39.9 [facility] [id number] [place] [address] 83719- 0721 Mar, [facility] [id number] [place] [address] 12002- 7516 Mar, Panic attacks F41.0 and Chronic pain G89.29 [facility] [address] 45397- 4035 Mar, [facility] [id number] [place] [address] 32484- 2160 Mar, Dysuria R30.0 [facility] [id number] [place] [address] 81154- 0510 Mar, Dysuria R30.0 [facility] [id number] [place] [address] 74940- 2399 Feb, Chronic pain G89.29 ; Shortness of breath R06.02 ; Weight loss R63.4 ; Encounter for immunization Z23 ; Bone pain M89.8X9 ; Right anterior knee pain M25.561 and Cough R05 [facility] [id number] [place] [address] 29808- 4377 Feb, Shortness of breath R06.02 [facility] [id number] [place] [address] 96449- 5679 Feb, [facility] [id number] [place] [address] 77984- 5465 Feb, Panic attacks F41.0 and Chronic pain G89.29 [facility] [address] 30856- 5893 Feb, [facility] [address] 78507- 4846 04 Feb, 2017 Panic attacks F41.0 ; Shortness of breath R06.02 and Encounter for immunization Z23 [facility] [address] 41243- 3510 Jan, [facility] [address] 01974- 5814 15 Jan, 2017 Anxiety F41.9 and Chronic pain G89.29 [facility] [address] 99276- 0591 Dec, Anxiety F41.9 and Chronic pain G89.29 [facility] [address] 85514- 4350 Nov, Chronic pain G89.29 [facility] [address] 74326- 6468 Nov, Anxiety F41.9 [facility] [address] 69503- 5073 Nov, Chronic pain G89.29 ; Essential hypertension I10 and Other emphysema J43.8 [facility] [id number] [place] [address] 54960- 9402 Oct, Anxiety F41.9 [facility] [address] 78263- 4029 Oct, [facility] [address] 09403- 0980 Oct, Chronic pain G89.29 [facility] [address] 49007- 2384 September, Recurrent UTI N39.0 ; Neuropathy G62.9 and Anxiety F41.9 [facility] [id number] [place] [address] 21266- 1655 September, [facility] [id number] [place] [address] 84348- 1408 September, Chronic pain G89.29 [facility] [id number] [place] [address] 67851- 4704 September, [facility] [address] 47502- 5569 Aug, Post-traumatic stress disorder, chronic F43.12 ; Chronic urinary tract infection N39.0 ; Gastroesophageal reflux disease without esophagitis K21.9 ; Chronic pain G89.29 ; Essential hypertension I10 and Tobacco abuse Z72.0 [facility] [id number] [place] [address] 11743 -4946 Aug, [facility] [address] 50897- 2057 Aug, Chronic pain G89.29 [facility] [address] 32872- 4612 Aug, Insomnia, unspecified type G47.00 [facility] [id number] [place] [address] 73431- 0936 Aug, [facility] [id number] [place] [address] 27096- 0328 Jul, Chronic pain G89.29 [facility] [id number] [place] [address] 37238- 1691 Jul, [facility] [address] 26589- 1537 Jul, [facility] [id number] [place] [address] 29116- 3166 Jul, [facility] [address] 94340- 7562 15 Jul, 2016 Recurrent UTI (urinary tract infection) N39.0 [facility] [id number] [place] [address] 98247- 8637 14 Jul, 2016 [facility] [id number] [place] [address] 65920- 4808 27 Jun, 2016 Chronic pain G89.29 [facility] [id number] [place] [address] 13963- 2598 17 Jun, 2016 [facility] [id number] [place] [address] 58131- 0170 Jun, [facility] [id number] [place] [address] 95864- 0375 May, Chronic pain G89.29 [facility] [id number] [place] [address] 96065- 9667 May, Weight loss R63.4 and Shortness of breath R06.02 [facility] [id number] [place] [address] 23977- 6345 May, Chronic pain G89.29 ; Weight loss R63.4 and Tobacco abuse Z72.0 [facility] [address] [place] [address] 26497- 4606 May, [facility] [id number] [place] [address] 94689- 8319 May, Hypoxia R09.02 [facility] [id number] [place] [address] 63894- 1655 May, [facility] [id number] [place] [address] 09307- 9997 May, Pulmonary emphysema, unspecified emphysema type J43.9 [facility] [address] [place] [address] 48390 -0024 May, [facility] [id number] [place] [address] 35676- 9256 May, [facility] [id number] [place] [address] 91977- 3760 May, [facility] [address] 80820- 3157 May, Chronic pain G89.29 ; Encounter for immunization Z23 ; Right anterior knee pain M25.561 and Cough R05 [facility] [address] 67157- 5016 Apr, Chronic pain G89.29 [facility] [id number] [place] [address] 63724- 7310 Apr, [facility] [address] 03861- 0219 Apr, Generalized anxiety disorder F41.1 and Depression, unspecified depression type F32.9 [facility] [address] 08127- 2486 Apr, Chronic pain G89.29 ; Hypokalemia E87.6 and Insomnia, unspecified type G47.00 [facility] [id number] [place] [address] 25552- 9430 Apr, [facility] [id number] [place] [address] 72826- 7708 Apr, Chronic pain G89.29 [facility] [id number] [place] [address] 66188- 4801 Apr, [facility] [id number] [place] [address] 86402- 3062 Mar, [facility] [id number] [place] [address] 55905- 6338 Mar, Insomnia, unspecified type G47.00 [facility] [id number] [place] [address] 83422- 6871 Mar, Chronic pain G89.29 [facility] [id number] [place] [address] 44841- 5753 Mar, [facility] [address] [address]- 9502 Feb, [facility] [address] [address]- 0634 Feb, [facility] [id number] [place] [address] 70836- 6387 Feb, [facility] [id number] [place] [address] 10442- 7191 Feb, [facility] [id number] [place] [address] 25955- 3684 Feb, [facility] [id number] [place] [address] 59924- 4495 29 Jan, 2016 [facility] [id number] [place] [address] 13558- 7514 26 Jan, 2015 [facility] [address] [address]- 3938 20 Jan, 2015 [facility] [id number] [place] [address] 42600- 2906 13 Jan, 2015 [facility] [address] [address]- 7891 12 Jan, 2016 [facility] [id number] [place] [address] 40184- 9188 07 Jan, 2015 Chronic pain G89.29 [facility] [address] [address]- 5574 Jan, 2015 Chronic pain G89.29 and Fibromyalgia M79.7 [facility] [address] [address]- 4944 Dec, Depression, unspecified depression type F32.9 and Generalized anxiety disorder 300.02 [facility] [address] [address]- 2114 Dec, Dysthymia F34.1 ; Insomnia, unspecified type G47.00 and Chronic pain G89.29 [facility] [address] [facility] [id number] [place] [address] 40597- 3258 Dec, Chronic pain G89.29 [facility] [id number] [place] [address] 07270 2546 Dec, Insomnia, unspecified type G47.00 [facility] [address] [facility] [id number] [place] [address] 24520 2542 Dec, Fibromyalgia M79.7 and Chronic pain G89.29 [facility] [id number] [place] [address] 39437- 9176 Dec, [facility] [id number] [place] [address] 81537 2546 Dec, [facility] [id number] [place] [address] 76641- 6999 Dec, [facility] [id number] [place] [address] 99791 2546 Dec, [facility] [id number] [place] [address] 83040- 1341 Dec, Chronic pain G89.29 [facility] [id number] [place] [address] 38949 254 Dec, [facility] [id number] [place] [address] 69868 2543 Dec, [facility] [id number] [place] [address] 70306 2546 Dec, [facility] [id number] [place] [address] 05510 2548 Dec, Chronic pain G89.29 and Dysthymia F34.1 [facility] [id number] [place] [address] [id number] 2544 Nov, [facility] [id number] [place] [address] 75887- 0932 Nov, Hypokalemia E87.6 and Chronic pain G89.29 [place] [address] 28574- 8657 Nov, Back pain M54.9 and Pain in right knee M25.561 [place] [address] 33120- 5530 Nov, [place] [address] 39540- 0414 Nov, Chronic pain G89.29 [place] [address] 79604- 5400 Nov, Chronic pain G89.29 ; Weight loss R63.4 ; Bone pain M89.8X9 and Insomnia, unspecified type G47.00 [place] [address] 48491- 8154 Nov, Chronic pain G89.29 [place] [address] 16565- 1579 Nov, Chronic pain G89.29 [place] [address] 61330- 0599 30 Oct, 2015 Chronic pain G89.29 [place] [id number] [place] [address] 98622- 8539 Oct, UTI symptoms R39.9 [facility] [id number] [place] [address] 19716- 0219 27 Oct, 2015 Chronic pain G89.29 [place] [address] 02228- 3410 20 Oct, 2015 Chronic pain G89.29 [place] [id number] [place] [address] 34677- 5438 13 Oct, 2015 Chronic pain G89.29 [place] [address] 18171- 6981 Oct, Right upper quadrant abdominal pain R10.11 [facility] [id number] [address] Oct, Chronic pain G89.29 [facility] [id number] [address] Oct, [facility] [id number] [place] [address] 55598- 1778 September, Chronic pain G89.29 [facility] [id number] [place] [address] 86431- 5029 September, Dysuria R30.0 and Urinary tract infection without hematuria , site unspecified N39.0 [facility] [id number] [place] [address] 60828- 2125 September, [facility] [id number] [place] [address] 72895- 2910 September, Dysuria R30.0 [facility] [id number] [place] [address] 75317- 6518 September, Chronic pain G89.29 [facility] [id number] [place] [address] 25952- 6311 September, Chronic pain G89.29 and Essential hypertension I10 [facility] [id number] [address] September, [facility] [id number] [place] [address] 55624- 6424 September, [facility] [id number] [place] [address] 74986- 7989 September, [facility] [id number] [place] [address] 74223- 8886 Aug, UTI symptoms R39.9 [facility] [address] [id number] [address] Aug, Dysuria R30.0 [facility] [address] [address] 4676 Aug, [facility] [id number] [place] [address] 62201- 6362 Aug, [facility] [id number] [place] [address] 77475- 5041 Aug, [facility] [id number] [place] [address] 73790- 6079 Aug, Chronic pain G89.29 [facility] [id number] [place] [address] 59621- 8576 Aug, Dysthymia F34.1 [facility] [id number] [place] [address] 97452- 2522 Aug, Conjunctivitis, unspecified conjunctivitis type, unspecified laterality H10.9 [facility] [id number] [place] [address] 20349- 4452 Jul, Chronic pain G89.29 ; Back pain M54.9 ; Tobacco abuse Z72.0 and Weight decrease R63.4 [facility] [id number] [place] [address] 83689- 2857 Jul, [facility] [id number] [place] [address] 61893- 9693 Jul, [facility] [id number] [place] [address] 24513- 5064 24 Jul, 2015 Chronic pain G89.29 [facility] [address] [address]- 2402 Jul, [facility] [id number] [place] [address] 71034- 0471 Jul, [facility] [id number] [place] [address] 56806- 0213 Jul, [facility] [id number] [place] [address] 47825- 1070 17 Jul, 2015 [facility] [address] [address] 0598 17 Jul, 2015 Chronic pain G89.29 [facility] [address] [address] 1945 16 Jul, 2015 Chronic pain G89.29 [facility] [id number] [place] [address] 17516- 5423 15 Jul, 2015 [facility] [id number] [place] [address] 70591- 1126 Jul, [facility] [id number] [place] [address] 31975- 6093 Jul, [facility] [id number] [place] [address] 09712- 0693 Jul, [facility] [id number] [place] [address] 87773- 1224 Jun, [facility] [id number] [place] [address] 40850- 5070 Jun, Depression, unspecified depression type F32.9 [facility] [id number] [place] [address] 85685- 6746 Jun, Pain in right knee M25.561 [facility] [address] [place] [address] 69734- 5896 24 Jun, 2015 Chronic pain G89.29 ; Back pain M54.9 ; Bone pain M89.8X9 and Weight loss R63.4 [facility] [address] [place] [address] 67162- 4908 Jun, [facility] [id number] [place] [address] 67850- 3134 May, [facility] [address] [address]- 1119 May, UTI symptoms R39.9 ; Pain in right knee M25.561 ; Right low back pain, with sciatica presence unspecified M54.5 ; Right foot pain M79.671 ; Hypokalemia E87.6 and Screening, lipid Z13.220 [facility] [id number] [place] [address] 17106- 6082 May, [facility] [id number] [place] [address] 85824- 9533 May, [facility] [id number] [place] [address] 83714- 1213 Mar, [facility] [id number] [place] [address] 86476- 4236 Mar, [facility] [id number] [place] [address] 01291- 3881 Mar, Hypokalemia E87.6 [facility] [address] 31699- 5858 Mar, Pain in right leg M79.604 ; Encounter for immunization Z23 ; Pain in right knee M25.561 and Hypokalemia E87.6 [facility] [id number] [place] [address] 97081- 0597 Jan, [facility] [id number] [place] [address] 65532- 8894 Jan, [facility] [id number] [place] [address] 51162 2541 Jan, Abdominal pain, generalized 789.07 [facility] [id number] [place] [address] 76645 2548 Jan, Abdominal pain, generalized 789.07 [facility] [id number] [place] [address] 49559- 5062 Dec, [facility] [id number] [place] [address] 79077- 2655 Dec, [facility] [address] [address]- 0906 Dec, [facility] [id number] [place] [address] 04645- 7325 Nov, Hallux valgus 735.0 and Hammertoe 735.4 [facility] [address] [address]- 4736 Nov, [facility] [id number] [place] [address] 24362- 5157 Nov, Hallux valgus 735.0 and Hammer toe 735.4 [facility] [id number] [place] [address] 01598- 5696 Oct, [facility] [id number] [place] [address] 00332- 6346 Oct, [facility] [id number] [place] [address] 97496- 8041 Oct, Pre-op evaluation V72.84 [facility] [address] [address]- 2019 Oct, [facility] [id number] [place] [address] 91614- 2981 Oct, [facility] [address] [address]- 3270 September, [facility] [address] [address] 2546 September, [facility] [id number] [address]- 2809 September, Hallux valgus (acquired) 735.0 and Other hammer toe ( acquired) 735.4 [facility] [address] [address]- 2546 Aug, [facility] [id number] [place] [address] 71235- 1744 Aug, [facility] [place] [facility] [address] [id number] [place] [address]- 0071 Jul, [facility] [place] [facility] [address] [id number] [place] [address]- 9591 Jul, [facility] [place] [facility] [address] [id number] [place] [address]- 2629 Jul, [facility] [place] [facility] [address] [id number] [place] [address]- 0768 Jul, [facility] [place] [facility] [address] [id number] [place] [address]- 7822 Jul, [facility] [place] [facility] [address] [id number] [place] [address]- 6775 Jul, [facility] [place] [facility] [address] [facility] [id number] [place] [address]- 3071 Jul, [facility] [place] [facility] [address] [id number] [place] [address]- 5508 Jul, [facility] [place] [facility] [address] [id number] [place] [address]- 1226 Jun, [facility] [place] [facility] [address] [facility] [id number] [place] [address]- 2127 Jun, [facility] [place] [facility] [address] [id number] [place] [address]- 8927 Jun, 2014 [facility] [place] [facility] [address] [id number] [place] [address]- 1287 Jun, [facility] [place] [facility] [address] [id number] [place] [address]- 2294 Jun, [facility] [place] [facility] [address] [id number] [place] [address]- 0675 Jun, [facility] [place] [facility] [address] [facility] [id number] [place] [address]- 2465 Jun, [facility] [place] [facility] [address] [id number] [place] [address]- 9999 Jun, [facility] [address] [id number] [place] [address]- 3802 Jun, [facility] [place] [facility] [address] [id number] [place] [address]- 7366 Jun, [facility] [place] [facility] [address] [id number] [place] [address]- 8505 May, [facility] [place] [facility] [address] [id number] [place] [address]- 0754 May, [facility] [place] [facility] [address] [id number] [place] [address]- 8502 May, [facility] [place] [facility] [address] [id number] [place] [address]- 1600 May, [facility] [place] [facility] [address] [id number] [place] [address]- 1819 May, [facility] [address] [id number] [place] [address]- 9519 May, [facility] [place] [facility] [address] [id number] [place] [address]- 6481 May, [facility] [place] [facility] [address] [id number] [place] [address]- 1269 May, [facility] [place] [facility] [address] [id number] [place] [address]- 8728 May, [facility] [place] [facility] [address] [id number] [place] [address]- 3494 May, [facility] [place] [facility] [address] [id number] [place] [address]- 4101 May, [facility] [place] [facility] [address] [id number] [place] [address]- 0786 May, [facility] [place] [facility] [address] [id number] [place] [address]- 1544 May, [facility] [place] [facility] [address] [id number] [place] [address]- 4344 May, [facility] [place] [facility] [address] [id number] [place] [address]- 4440 May, [facility] [place] [facility] [address] [id number] [place] [address]- 3910 May, [facility] [place] [facility] [address] [id number] [place] [address]- 4774 May, [facility] [place] [facility] [address] [id number] [place] [address]- 8352 May, [facility] [place] [facility] [address] [id number] [place] [address]- 7530 Apr, [facility] [place] [facility] [address] [id number] [place] [address]- 6255 Apr, [facility] [place] [facility] [address] [id number] [place] [address]- 4035 Apr, [facility] [place] [facility] [address] [id number] [place] [address]- 9259 Apr, [facility] [place] [facility] [address] [id number] [place] [address]- 6857 Apr, [facility] [place] [facility] [address] [id number] [place] [address]- 8653 Apr, [facility] [place] [facility] [address] [id number] [place] [address]- 3215 Apr, [facility] [place] [facility] [address] [id number] [place] [address]- 5658 Apr, [facility] [place] [facility] [address] [id number] [place] [address]- 4183 Apr, [facility] [place] [facility] [address] [id number] [place] [address]- 9884 Mar, [facility] [place] [facility] [address] [id number] [place] [address]- 9083 Mar, [facility] [place] [facility] [address] [id number] [place] [address]- 7578 Mar, [facility] [place] [facility] [address] [id number] [place] [address]- 9350 Mar, [facility] [place] [facility] [address] [id number] [place] [address]- 7703 Mar, [facility] [place] [facility] [address] [id number] [place] [address]- 8321 Feb, [facility] [place] [facility] [address] [id number] [place] [address]- 5762 Feb, [facility] [place] [facility] [address] [id number] [place] [address]- 5573 Feb, [facility] [place] [facility] [address] [id number] [place] [address]- 1725 Feb, [facility] [place] [facility] [address] [id number] [place] [address]- 0961 Feb, [facility] [place] [facility] [address] [id number] [place] [address]- 6408 Feb, [facility] [place] [facility] [address] [id number] [place] [address]- 2605 Feb, [facility] [place] [facility] [address] [id number] [place] [address]- 7460 Feb, [facility] [place] [facility] [address] [id number] [address]- 1991 Feb, [facility] [place] [facility] [address] [id number] 9938 Feb, [facility] [place] [facility] [address] [id number] [address]- 9829 Feb, [facility] [place] [facility] [address] [id number] 5744 Feb, [facility] [place] [facility] [address] [id number] [place] [address]- 5717 07 Feb, 2013 [facility] [place] [facility] [address] [id number] [place] [address]- 7897 Feb, [facility] [place] [facility] [address] [id number] [place] [address]- 6099 Feb, 2013 [facility] [place] [facility] [address] [id number] [place] [address]- 2082 Feb, [facility] [place] [facility] [address] [id number] [place] [address]- 3013 Jan, 2013 [facility] [place] [facility] [address] [id number] [place] [address]- 8009 23 Jan, 2013 [facility] [place] [facility] [address] [id number] [place] [address]- 1100 20 Jan, 2014 [facility] [place] [facility] [address] [id number] [place] [address]- 1664 19 Jan, 2013 [facility] [place] [facility] [address] [id number] [place] [address]- 6707 11 Jan, 2014 [facility] [place] [facility] [address] [id number] [place] [address]- 4380 Jan, [facility] [place] [facility] [address] [id number] [place] [address]- 8393 Jan, [facility] [place] [facility] [address] [id number] [place] [address]- 4719 Jan, 2013 [facility] [place] [facility] [address] [id number] [place] [address]- 6952 Dec, [facility] [place] [facility] [address] [id number] [place] [address]- 7056 Dec, [facility] [place] [facility] [address] [id number] [place] [address]- 6164 Nov, [facility] [place] [facility] [address] [id number] [place] [address]- 1354 Nov, [facility] [place] [facility] [address] [id number] [place] [address]- 0540 Nov, [facility] [place] [facility] [address] [id number] [place] [address]- 0234 Nov, [facility] [place] [facility] [address] [id number] [place] [address]- 9504 Nov, [facility] [place] [facility] [address] [id number] [place] [address]- 6418 Nov, [facility] [place] [facility] [address] [id number] [place] [address]- 1902 Nov, [facility] [place] [facility] [address] [id number] [place] [address]- 8295 Nov, [facility] [place] [facility] [address] [id number] [place] [address]- 1030 Nov, [facility] [place] [facility] [address] [id number] [place] [address]- 7147 Oct, [facility] [place] [facility] [address] [id number] [place] [address]- 4586 Oct, [facility] [place] [facility] [address] [id number] [place] [address]- 5103 Oct, [facility] [place] [facility] [address] [id number] [place] [address]- 9807 Oct, [facility] [place] [facility] [address] [id number] [place] [address]- 9746 Oct, [facility] [place] [facility] [address] [id number] [place] [address]- 8776 Oct, [facility] [place] [facility] [address] [id number] [place] [address]- 4476 September, [facility] [place] [facility] [address] [id number] [place] [address]- 9953 September, [facility] [place] [facility] [address] [id number] [place] [address]- 6016 September, [facility] [address] [id number] [place] 8150 September, [facility] [address] [id number] [place] [address]- 0898 September, [facility] [address] [id number] [place] [address]- 3038 September, [facility] [address] [id number] [place] [address]- 1664 September, [facility] [address] [id number] [place] 0167 September, [facility] [address] [id number] [place] [address]- 6291 September, [facility] [address] [id number] [place] [address]- 9829 September, [facility] [address] [id number] [place] [address]- 9444 September, [facility] [address] [id number] [place] [address]- 1978 September, [facility] [address] [id number] [place] [address]- 8830 September, [facility] [address] [id number] [place] [address]- 2902 September, [facility] [address] [id number] [place] [address]- 3021 September, [facility] [place] [facility] [address] [id number] [place] 2624 September, [facility] [place] [facility] [address] [id number] [place] 2183 September, [facility] [address] [id number] [place] [address]- 5887 September, [facility] [place] [facility] [address] [id number] [place] [address]- 5766 September, [facility] [place] [facility] [address] [id number] [place] [address]- 6188 September, [facility] [place] [facility] [address] [id number] [place] [address]- 6403 Aug, [facility] [place] [facility] [address] [id number] [place] [address]- 0349 Aug, [facility] [place] [facility] [address] [id number] [place] [address]- 0681 Aug, [facility] [place] [facility] [address] [id number] [place] [address]- 5815 Aug, [facility] [place] [facility] [address] [id number] [place] [address] Aug, [facility] [place] [facility] [address] [id number] [place] [address] Aug, [facility] [place] [facility] [address] [id number] [place] [address] Aug, [facility] [place] [facility] [address] [id number] [place] [address] Aug, [facility] [place] [facility] [address] [id number] [place] [address] Aug, [facility] [place] [facility] [address] [id number] [place] [address] Aug, [facility] [place] [facility] [address] [id number] [place] [address] Aug, [facility] [place] [facility] [address] [id number] [place] [address] Aug, [facility] [place] [facility] [address] [id number] [place] [address] Aug, [facility] [place] [facility] [address] [id number] [place] [address] Aug, [facility] [place] [facility] [address] [id number] [place] [address] Aug, [facility] [place] [facility] [address] [id number] [place] [address] Jul, [facility] [place] [facility] [address] [id number] [place] [address] Jul, [facility] [place] [facility] [address] [id number] [place] [address] Jul, [facility] [place] [facility] [address] [id number] [place] [address] Jul, [facility] [place] [facility] [address] [id number] [place] [address] Jul, [facility] [place] [facility] [address] [id number] [place] [address] Jul, [facility] [place] [facility] [address] [id number] [place] [address] Jul, [facility] [place] [facility] [address] [id number] [place] [address]- [address] Jul, [facility] [place] [facility] [address] [id number] [place] [address] Jul, [facility] [place] [facility] [address] [id number] [place] [address] Jul, [facility] [place] [facility] [address] [id number] [place] [address] Jul, [facility] [place] [facility] [address] [id number] [place] [address] Jul, [facility] [place] [facility] [address] [id number] [place] [address] Jul, [facility] [place] [facility] [address] [id number] [place] [address] Jul, [facility] [place] [facility] [address] [id number] [place] [address] Jul, [facility] [place] [facility] [address] [id number] [place] [address] Jun, [facility] [place] [facility] [address] [id number] [place] [address]6 Jun, [facility] [place] [facility] [address] [id number] [place] [address]- 1836 Jun, [facility] [place] [facility] [address] [id number] [place] [address] Jun, [facility] [place] [facility] [address] [id number] [place] [address] Jun, [facility] [place] [facility] [address] [id number] [place] [address] Jun, [facility] [place] [facility] [address] [id number] [place] [address] May, [facility] [place] [facility] [address] [id number] [place] [address] May, [facility] [place] [facility] [address] [id number] [place] [address] May, [facility] [place] [facility] [address] [id number] [place] [address]- 59[address] May, [facility] [place] [facility] [address] [id number] [place] [address] May, [facility] [place] [facility] [address] [id number] [place] [address] May, [facility] [place] [facility] [address] [id number] [place] [address]- [address] May, [facility] [place] [facility] [address] [id number] [place] [address]- 27[address] May, [facility] [place] [facility] [address] [id number] [place] [address] May, [facility] [address] [id number] [place] [address] May, [facility] [place] [facility] [address] [id number] [place] [address] May, [facility] [place] [facility] [address] [id number] [place] [address] May, [facility] [place] [facility] [address] [id number] [place] [address] May, [facility] [place] [facility] [address] [id number] [place] [address]- [address] May, [facility] [place] [facility] [address] [id number] [place] [address] May, [facility] [place] [facility] [address] [id number] [place] [address] Apr, [facility] [place] [facility] [address] [id number] [place] [address] Apr, [facility] [place] [facility] [address] [id number] [place] [address]- 5069 Apr, [facility] [place] [facility] [address] [id number] [place] [address]- 12[address] Apr, [facility] [place] [facility] [address] [id number] [place] [address]- [address] Apr, [facility] [place] [facility] [address] [id number] [place] [address] Apr, [facility] [place] [facility] [address] [id number] [place] [address] Apr, [facility] [place] [facility] [address] [id number] [place] [address] 9[address] Apr, [facility] [place] [facility] [address] [id number] [place] [address] 8532 Apr, [facility] [place] [facility] [address] [id number] [place] [address] 7799 Apr, [facility] [address] [id number] [place] [address] Mar, [facility] [address] [id number] [place] [address] 0903 Mar, [facility] [address] [id number] [place] [address] 2296 Mar, [facility] [address] [id number] [place] [address] 2463 Mar, [facility] [address] [id number] [place] [address] Mar, [facility] [address] [id number] [place] [address] 6547 Mar, [facility] [address] [id number] [place] [address] 4787 Mar, [facility] [address] [id number] [place] [address] 3673 Mar, [facility] [address] [id number] [place] [address] 0530 Mar, [facility] [address] [id number] [place] [address] 0635 Mar, [facility] [address] [id number] [place] [address]- 8763 Mar, [facility] [address] [id number] [place] [address] 5315 Mar, [facility] [place] [facility] [address] [id number] [place] [address]- 3442 Mar, [facility] [place] [facility] [address] [id number] [place] [address] 1740 Mar, [facility] [address] [id number] [place] [address]- 0797 Mar, [facility] [place] [facility] [address] [id number] [place] [address]- 4849 18 Mar, 2013 [facility] [place] [facility] [address] [id number] [place] [address]- 8684 Mar, [facility] [place] [facility] [address] [id number] [place] [address]- 6890 Mar, [facility] [place] [facility] [address] [id number] [place] [address] 5304 Mar, [facility] [place] [facility] [address] [id number] [place] [address]- 6574 Mar, [facility] [place] [facility] [address] [id number] [place] [address]- 9698 Mar, [facility] [place] [facility] [address] [id number] [place] [address]- 9695 Mar, [facility] [place] [facility] [address] [id number] [address] Mar, [facility] [place] [facility] [address] [id number] [address] 96[address] Feb, [facility] [place] [facility] [address] [id number] [address] 3951 Feb, [facility] [place] [facility] [address] [id number] [address] 1492 Feb, [facility] [place] [facility] [address] [id number] [place] [address] 5739 16 Feb, 2013 [facility] [place] [facility] [address] [id number] [address] 2273 15 Feb, 2013 [facility] [place] [facility] [address] [id number] [address] 3835 Feb, [facility] [place] [facility] [address] [facility] [id number] [place] [address] 2774 Feb, [facility] [place] [facility] [address] [id number] [address] 8[address] Feb, [facility] [address] [id number] [place] [address] 5483 Feb, [facility] [place] [facility] [address] [id number] [place] [address]- 7650 Feb, [facility] [place] [facility] [address] [id number] [place] [address]- 1134 30 Jan, 2013 [facility] [place] [facility] [address] [id number] [place] [address]- 1517 26 Jan, 2013 [facility] [place] [facility] [address] [id number] [place] [address]- 7832 24 Jan, 2013 [facility] [place] [facility] [address] [id number] [place] [address]- 5447 23 Jan, 2013 [facility] [place] [facility] [address] [id number] [place] [address]- 0989 17 Jan, 2013 [facility] [place] [facility] [address] [id number] [place] [address]- 0892 Dec, [facility] [place] [facility] [address] [id number] [place] [address]- 5457 Dec, [facility] [place] [facility] [address] [id number] [place] [address]- 9029 Dec, [facility] [place] [facility] [address] [id number] [place] [address]- 8050 15 Dec, 2012 [facility] [place] [facility] [address] [id number] [place] [address]- 6123 14 Dec, 2012 [facility] [place] [facility] [address] [id number] [place] [address]- 9385 Dec, [facility] [place] [facility] [address] [id number] [place] [address]- 4920 Dec, [facility] [place] [facility] [address] [id number] [place] [address]- 9015 Nov, [facility] [place] [facility] [address] [id number] [place] [address]- 2546 16 Nov, 2012 [facility] [address] [id number] [place] [address]- 6686 15 Nov, 2012 [facility] [place] [facility] [address] [id number] [place] [address]- 2546 05 Nov, 2012 [facility] [address] [id number] [place] [address]- 2546 Nov, [facility] [place] [facility] [address] [id number] [place] [address]- 1326 Oct, [facility] [address] [id number] [place] [address]- 2846 Oct, [facility] [place] [facility] [address] [id number] [place] [address]- 2546 Oct, [facility] [address] [id number] [place] [address]- 8306 September, [facility] [address] [id number] [place] [address]- 6648 September, [facility] [address] [id number] [place] [address]- 3916 September, [facility] [address] [id number] [place] [address]- 6566 September, [facility] [place] [facility] [address] [id number] [place] [address]- 7406 September, [facility] [address] [id number] [place] [address]- 2546 September, [facility] [place] [facility] [address] [id number] [place] [address]- 2546 September, [facility] [place] [facility] [address] [id number] [place] [address]- 2546 Aug, [facility] [place] [facility] [address] [id number] [place] [address]- 9960 23 Aug, 2012 [facility] [place] [facility] [address] [id number] [place] [address]- 5054 11 Aug, 2012 [facility] [place] [facility] [address] [id number] [place] [address]- 3666 29 Jul, 2012 [facility] [place] [facility] [address] [id number] [place] [address]- 0971 27 Jul, 2012 [facility] [place] [facility] [address] [id number] [place] [address]- 9624 26 Jul, 2012 [facility] [place] [facility] [address] [id number] [place] [address]- 6662 20 Jul, 2012 [facility] [place] [facility] [address] [id number] [place] [address]- 4215 18 Jul, 2012 [facility] [place] [facility] [address] [facility] [id number] [place] [address]- 0025 18 Jul, 2012 [facility] [place] [facility] [address] [id number] [place] [address]- 3998 13 Jul, 2012 [facility] [place] [facility] [address] [id number] [place] [address]- 6091 28 Jun, 2012 [facility] [place] [facility] [address] [facility] [id number] [place] [address]- 8993 27 Jun, 2012 [facility] [place] [facility] [address] [facility] [id number] [place] [address]- 0607 22 Jun, 2012 [facility] [place] [facility] [address] [id number] [place] [address]- 2476 20 Jun, 2012 [facility] [place] [facility] [address] [id number] [place] [address]- 0514 15 Jun, 2012 [facility] [place] [facility] [address] [id number] [place] [address]- 7588 15 Jun, 2012 [facility] [place] [facility] [address] [facility] [id number] [place] [address]- 8364 13 Jun, 2012 [facility] [place] [facility] [address] [id number] [place] [address]- 3676 Jun, [facility] [address] [id number] [place] [address]- 5886 Jun, [facility] [place] [facility] [address] [id number] [place] [address]- 2546 Jun, [facility] [address] [id number] [place] [address]- 4146 May, [facility] [place] [facility] [address] [id number] [place] [address] 2541 May, [facility] [address] [id number] [place] [address]- 1576 May, [facility] [address] [id number] [place] [address]- 8780 May, [facility] [address] [id number] [place] [address]- 5556 May, [facility] [address] [id number] [place] [address]- 7974 May, [facility] [address] [id number] [place] [address]- 4332 31 Apr, 2012 [facility] [address] [id number] [place] [address] 2546 31 Apr, 2012 [facility] [address] [id number] [place] [address] 2546 Apr, [facility] [place] [facility] [address] [id number] [place] [address] 2544 28 Apr, 2012 [facility] [place] [facility] [address] [id number] [place] [address] 2546 26 Apr, 2012 [facility] [place] [facility] [address] [id number] [place] [address]- 2546 20 Apr, 2012 [facility] [place] [facility] [address] [id number] [place] [address]- 2314 Apr, [facility] [place] [facility] [address] [id number] [place] [address]- 8844 Mar, [facility] [place] [facility] [address] [id number] [place] [address]- 8278 Mar, [facility] [place] [facility] [address] [facility] [id number] [place] [address]- 1808 Mar, [facility] [place] [facility] [address] [id number] [place] [address]- 4571 Mar, [facility] [place] [facility] [address] [id number] [place] [address]- 0455 Mar, [facility] [place] [facility] [address] [id number] [address]- 2450 Mar, [facility] [place] [facility] [address] [id number] [place] [address]- 2620 Mar, [facility] [place] [facility] [address] [id number] [address]- 7665 Mar, [facility] [place] [facility] [address] [id number] [place] [address]- 0319 Mar, [facility] [place] [facility] [address] [id number] [address]- 7796 Mar, [facility] [place] [facility] [address] [id number] [address]- 3030 Mar, [facility] [place] [facility] [address] [id number] [place] [address]- 5322 Mar, [facility] [place] [facility] [address] [id number] [address]- 3685 Mar, [facility] [place] [facility] [address] [facility] [id number] [place] [address]- 8247 Mar, [facility] [place] [facility] [address] [facility] [id number] [address]- 7799 Mar, [facility] [place] [facility] [address] [id number] [place] [address]- 1013 Mar, [facility] [place] [facility] [address] [id number] [place] [address]- 0907 Mar, [facility] [place] [facility] [address] [id number] [place] [address]- 9040 Feb, [facility] [place] [facility] [address] [id number] [place] [address]- 7357 Feb, 2011 [facility] [place] [facility] [address] [id number] [place] [address]- 1831 Feb, [facility] [place] [facility] [address] [id number] [place] [address]- 6643 Feb, [facility] [place] [facility] [address] [id number] [place] [address]- 9535 Feb, [facility] [place] [facility] [address] [id number] [place] [address]- 3251 Feb, [facility] [place] [facility] [address] [id number] [place] [address]- 3194 Feb, [facility] [place] [facility] [address] [id number] [place] [address]- 0758 Feb, [facility] [place] [facility] [address] [facility] [id number] [place] [address]- 7317 Feb, [facility] [place] [facility] [address] [id number] [place] [address]- 4718 Feb, [facility] [place] [facility] [address] [id number] [place] [address]- 6460 Feb, [facility] [place] [facility] [address] [id number] [place] [address]- 8088 27 Jan, 2011 [facility] [place] [facility] [address] [id number] [place] [address]- 3989 25 Jan, 2012 [facility] [place] [facility] [address] [id number] [place] [address]- 9925 13 Jan, 2012 [facility] [place] [facility] [address] [id number] [place] [address]- 4809 12 Jan, 2012 [facility] [place] [facility] [address] [id number] [place] [address]- 1046 Jan, [facility] [place] [facility] [address] [id number] [place] [address]- 2863 Dec, [facility] [place] [facility] [address] [id number] [place] [address]- 9969 Dec, [facility] [place] [facility] [address] [id number] [place] [address]- 0830 Dec, [facility] [place] [facility] [address] [id number] [place] [address]- 0108 Dec, [facility] [place] [facility] [address] [id number] [place] [address]- 4099 Dec, [facility] [place] [facility] [address] [id number] [place] [address]- 1887 Dec, [facility] [place] [facility] [address] [id number] [place] [address]- 0727 Dec, [facility] [place] [facility] [address] [id number] [place] [address]- 8767 Dec, [facility] [place] [facility] [address] [id number] [place] [address]- 5247 Nov, [facility] [place] [facility] [address] [id number] [place] [address]- 0103 Nov, [facility] [place] [facility] [address] [id number] [place] [address]- 6357 Nov, [facility] [place] [facility] [address] [id number] [place] [address]- 6392 Nov, [facility] [place] [facility] [address] [id number] [place] [address]- 8856 Nov, [facility] [place] [facility] [address] [id number] [place] [address]- 3188 Oct, [facility] [address] [id number] [place] [address]373 Oct, [facility] [place] [facility] [address] [id number] [place] [address]- 4873 September, [facility] [address] [id number] [place] [address]- 6666 September, [facility] [place] [facility] [address] [id number] [place] [address]- 9418 September, [facility] [address] [id number] [place] [address]- 0071 September, [facility] [place] [facility] [address] [id number] [place] [address]- 2076 September, [facility] [address] [id number] [place] [address]- 4466 September, [facility] [place] [facility] [address] [id number] [place] [address]- 7746 September, [facility] [place] [facility] [address] [id number] [place] [address]- 3401 September, [facility] [place] [facility] [address] [id number] [place] [address]- 8297 September, [facility] [place] [facility] [address] [id number] [place] [address]- 1767 September, [facility] [place] [facility] [address] [id number] [place] [address]- 7670 September, [facility] [place] [facility] [address] [id number] [place] [address]- 8506 September, [facility] [place] [facility] [address] [id number] [place] [address]- 2003 September, [facility] [place] [facility] [address] [id number] [place] [address]- 1738 September, [facility] [place] [facility] [address] [id number] [place] [address]- 6135 24 Aug, 2011 [facility] [address] [id number] [place] [address]- 7583 20 Aug, 2011 [facility] [address] [id number] [place] [address]- 8866 13 Aug, 2011 [facility] [address] [id number] [place] [address]- 3006 11 Aug, 2011 [facility] [address] [id number] [place] [address]- 0625 23 Jul, 2011 [facility] [address] [id number] [place] [address]- 0841 13 Jul, 2011 [facility] [address] [id number] [place] [address]- 6634 13 Jul, 2011 [facility] [address] [id number] [place] [address]- 9624 28 Jun, [address] [facility] [address] [id number] [id number] 26 Jun, 2011 [facility] [address] [id number] [place] [address]- 6683 13 Jun, 2011 [facility] [address] [id number] [place] [address]- 7079 10 Jun, 2011 [facility] [address] [id number] [place] [address]- 0976 07 Jun, 2011 [facility] [address] [id number] [place] [address]- 3006 07 Jun, 2011 [facility] [place] [facility] [address] [id number] [place] [address]- 4036 03 Jun, 2011 [facility] [place] [facility] [address] [id number] [place] [address]- 1326 02 Jun, 2011 [facility] [place] [facility] [address] [id number] [place] [address]- 3775 31 May, 2011 [facility] [address] [id number] [place] [address]- 9941 30 May, 2011 [facility] [address] [id number] [place] [address]- 3373 May, [facility] [address] [id number] [place] [address]- 3479 May, [facility] [address] [id number] [place] [address]- 1464 May, [facility] [address] [id number] [place] [address] May, [facility] [address] [id number] [place] [address] May, [facility] [address] [id number] [place] [address] May, [facility] [place] [facility] [address] [id number] [place] [address] May, [facility] [address] [id number] [place] [address] May, [facility] [place] [facility] [address] [id number] [place] [address] May, [facility] [address] [id number] [address] May, [facility] [place] [facility] [address] [id number] [address] May, [facility] [place] [facility] [address] [id number] [place] [address] May, [facility] [place] [facility] [address] [id number] [place] [address] 30 Apr, 2011 [facility] [place] [facility] [address] [id number] [place] [address] 16 Apr, 2011 [facility] [place] [facility] [address] [id number] [place] [address] 05 Apr, 2011 [facility] [place] [facility] [address] [id number] [place] [address] 17 Mar, 2011 [facility] [place] [facility] [address] [id number] [place] [address] Mar, [facility] [place] [facility] [address] [id number] [place] [address] 31 Feb, 2011 [facility] [place] [facility] [address] [id number] [place] [address]46 26 Feb, 2011 [facility] [place] [facility] [address] [id number] [place] [address] Feb, [facility] [place] [facility] [address] [id number] [place] [address] 20 Feb, 2011 [facility] [place] [facility] [address] [id number] [place] [address] 13 Feb, 2011 [facility] [place] [facility] [address] [id number] [place] [address] 28 Apr, 2010 [facility] [place] [facility] [address] [id number] [place] [address] 2546 22 Apr, 2010 [facility] [place] [facility] [address] [facility] [id number] [place] [address] 2547 16 Apr, 2010 [facility] [place] [facility] [address] [id number] [place] [address]46 15 Apr, 2010 [facility] [place] [facility] [address] [id number] [place] [address]46 15 Apr, 2010 [facility] [place] [facility] [address] [id number] [place] [address] 2546 Apr, [facility] [place] [facility] [address] [id number] [place] [address]46 24 Mar, 2010 [facility] [place] [facility] [address] [id number] [place] [address] 2541 17 Mar, 2010 [facility] [id number] [address] 17 Mar, 2010 [facility] [address] [address] 28 Feb, 2010 [facility] [address] [address] Feb, [facility] [id number] [place] [address] Feb, [facility] [id number] [address] Feb, [facility] [id number] [place] [address] Dec, [facility] [id number] [address] Dec, [facility] [id number] [place] [address] Oct, [facility] [id number] [address] Mar, [facility] [id number] [address] Mar, [facility] [address]65[address] [address] September, IMMUNIZATIONS No Known Immunizations SOCIAL HISTORY Never Assessed REASON FOR VISIT EMR-[facility] [place]AN OF CARE VITAL [...]
--- OUTSIDE RECORDS SUMMARY | 2018-09-19 09:17 | XMS REPORT ---
Author Author Migration, Doctor Organization [facility] Address Unknown Phone Unavailable Care Team Providers Care Medical Territory Manager Name Role Phone Migration, Doctor Unavailable Unavailable PROBLEMS Type Condition ICD9-CM Code [id number] Code Onset Dates Condition Status SNOMED Code Problem Hypokalemia E87.6 Active 322337229 Problem Generalized anxiety disorder F41.1 Active 93836433 Problem Pain in right knee M25.561 Active 20546487 Problem Right low back pain, with sciatica presence unspecified M54.5 Active 451347298 Problem Right foot pain M79.671 Active 65513782 Problem UTI symptoms R39.9 Active 53037491 Problem Essential hypertension I10 Active 34205401 Problem Gastroesophageal reflux disease without esophagitis K21.9 Active 452311222 Problem Weight decrease R63.4 Active 125334706 Problem Depression, unspecified depression type F32.9 Active 51581575 Problem Right upper quadrant abdominal pain R10.11 Active 982389649 Problem Tobacco abuse Z72.0 Active 39905833 Problem Insomnia, unspecified type G47.00 Active 573894829 Problem Weight loss R63.4 Active 292693850 Problem Post-traumatic stress disorder, chronic F43.12 Active 69407437 Problem Pulmonary emphysema, unspecified emphysema type J43.9 Active 59476793 Problem Neuropathy G62.9 Active 443009023 Problem Anxiety F41.9 Active 90335726 Problem Other emphysema J43.8 Active 13906949 Problem Other chronic pain G89.29 Active 33842316 Problem Chronic pain G89.29 Active 67686957 Problem Opioid use disorder, moderate, dependence F11.20 Active 35604079 Problem Back pain M54.9 Active 045595812 Problem Bone pain M89.8X9 Active 10270800 Problem Panic attacks F41.0 Active 338679296 Problem Kidney stones N20.0 Active 37463686 Problem Renal calculus, right N20.0 Active 41454207 Problem Generalized abdominal pain R10.84 Active 028165044 ALLERGIES No Information ENCOUNTERS Encounter Location Date Diagnosis [facility] [address] [address] Feb, [facility] [id number] [place] [address] 31702- 7105 Dec, [facility] [id number] [place] [address] 17581- 2410 Dec, [facility] [id number] [place] [address] 47203- 4736 Dec, Medicare welcome exam Z00.00 [facility] [id number] [place] [address] 09960- 4871 17 Nov, 2017 Opioid use disorder, moderate, dependence F11.20 [facility] [id number] [place] [address] 02757- 0697 16 Nov, 2017 Pelvic pain R10.2 ; Acute pyelonephritis N10 and Essential hypertension I10 [facility] [id number] [place] [address] 16526- 1922 28 Oct, 2017 Medicare welcome exam Z00.00 [facility] [id number] [place] [address] 12477- 5885 Oct, Gross hematuria R31.0 ; Urinary tract infection without hematuria, site unspecified N39.0 and Weakness R53.1 [facility] [id number] [place] [address] 23447- 4726 Oct, [facility] [id number] [place] [address] 98926- 0263 Oct, [facility] [id number] [place] [address] 67490- 1702 Oct, Medicare welcome exam Z00.00 [facility] [id number] [place] [address] 05450- 7882 September, Back pain M54.9 and Right anterior knee pain M25.561 [facility] [id number] [place] [address] 92500- 2827 September, [facility] [address] [address] 1870 September, [facility] [id number] [place] [address] 28551- 1788 September, Essential hypertension I10 [facility] [id number] [place] [address] 85952- 5615 September, [facility] [id number] [place] [address] 34041- 1397 September, RLQ abdominal pain R10.31 ; Low back pain M54.5 and Other chronic pain G89.29 [facility] [id number] [place] [address] 74635- 7595 Aug, Medicare welcome exam Z00.00 [facility] [id number] [place] [address] 99699- 6009 Aug, [facility] [id number] [place] [address] 21250- 6285 Aug, Acute pyelonephritis N10 and Medicare welcome exam Z00.00 [facility] [id number] [place] [address] 89830 -4260 Aug, Dysuria R30.0 and Acute pyelonephritis N10 [facility] [address] [address]- 8194 Aug, [facility] [id number] [place] [address] 39893- 9624 Aug, [facility] [id number] [place] [address] 43939- 2222 Aug, [facility] [id number] [place] [address] 31163- 7036 Aug, [facility] [address], [place] [address]- 8915 Jul, [facility] [id number] [place] [address] 93750- 4776 Jul, Renal calculus, right N20.0 and Medicare welcome exam Z00.00 [facility] [id number] [place] [address] 67543 -4954 Jul, Dysuria R30.0 and Renal calculus, right N20.0 [facility] [id number] [place] [address] 32207- 9631 Jul, Medicare welcome exam Z00.00 [facility] [id number] [place] [address] 36224- 8440 Jun, Gastroesophageal reflux disease without esophagitis K21.9 and Generalized abdominal pain R10.84 [facility] [id number] [place] [address] 34063- 5091 Jun, Medicare welcome exam Z00.00 [facility] [id number] [place] [address] 90621- 8869 Jun, [facility] [id number] [place] [address] 11816- 7962 Jun, Medicare welcome exam Z00.00 and Encounter for screening mammogram for malignant neoplasm of breast Z12.31 [facility] [id number] [place] [address] 29896- 3472 Jun, Chronic pain G89.29 [facility] [id number] [place] [address] 67322- 3834 May, [facility] [id number] [place] [address] 53072- 2823 May, Pelvic pain R10.2 [facility] [id number] [place] [address] 27330- 6988 May, Pelvic pain R10.2 [facility] [id number] [place] [address] 03756 -0895 May, Renal calculus, right N20.0 [facility] [id number] [place] [address] 93433- 6066 May, Hematuria, unspecified type R31.9 and Nephrolithiasis N20.0 [facility] [id number] [place] [address] 37112 -9033 May, Dysuria R30.0 and Nephrolithiasis N20.0 [facility] [id number] [place] [address] 10537- 6835 May, [facility] [id number] [place] [address] 69745 -0499 May, Abdominal pain R10.9 and Kidney stone N20.0 [facility] [id number] [place] [address] 64182- 1620 May, [facility] [id number] [place] [address] 57350- 8278 May, Chronic pain G89.29 and Panic attacks F41.0 [facility] [id number] [place] [address] 23984- 6781 May, Urinary tract infection without hematuria, site unspecified N39.0 [facility] [id number] [place] [address] 35473- 7309 Apr, Right lower quadrant abdominal pain R10.31 and Abnormal serum lipase level R74.8 [facility] [id number] [place] [address] 95558- 7928 Apr, Recurrent urinary tract infection N39.0 [facility] [id number] [place] [address] 35012- 6162 Apr, UTI symptoms R39.9 ; Recurrent urinary tract infection N39.0 and Pelvic pain R10.2 [facility] [id number] [place] [address] 47275- 7853 Apr, Chronic pain G89.29 and Panic attacks F41.0 [facility] [id number] [place] [address] 66490- 2593 Apr, Dysuria R30.0 [facility] [id number] [place] [address] 30943- 8096 Apr, [facility] [id number] [place] [address] 33356- 4882 Apr, Dysuria R30.0 and Urinary tract infection without hematuria , site unspecified N39.0 [facility] [id number] [place] [address] 34176- 0474 Mar, UTI symptoms R39.9 [facility] [id number] [place] [address] 94321- 8760 Mar, [facility] [id number] [place] [address] 96948- 3008 Mar, Panic attacks F41.0 and Chronic pain G89.29 [facility] [address] 88831- 9613 Mar, [facility] [id number] [place] [address] 37673- 9239 Mar, Dysuria R30.0 [facility] [id number] [place] [address] 47555- 1242 Mar, Dysuria R30.0 [facility] [id number] [place] [address] 14764- 1202 Feb, Chronic pain G89.29 ; Shortness of breath R06.02 ; Weight loss R63.4 ; Encounter for immunization Z23 ; Bone pain M89.8X9 ; Right anterior knee pain M25.561 and Cough R05 [facility] [id number] [place] [address] 51635- 9912 Feb, Shortness of breath R06.02 [facility] [id number] [place] [address] 61634- 6668 Feb, [facility] [id number] [place] [address] 42276- 6862 Feb, Panic attacks F41.0 and Chronic pain G89.29 [facility] [address] 46295- 0176 Feb, [facility] [address] 51584- 7294 04 Feb, 2017 Panic attacks F41.0 ; Shortness of breath R06.02 and Encounter for immunization Z23 [facility] [address] 90068- 4792 Jan, [facility] [address] 36442- 0363 15 Jan, 2017 Anxiety F41.9 and Chronic pain G89.29 [facility] [address] 10262- 0328 Dec, Anxiety F41.9 and Chronic pain G89.29 [facility] [address] 63483- 4912 Nov, Chronic pain G89.29 [facility] [address] 65601- 6757 Nov, Anxiety F41.9 [facility] [address] 93063- 2096 Nov, Chronic pain G89.29 ; Essential hypertension I10 and Other emphysema J43.8 [facility] [id number] [place] [address] 80974- 9777 Oct, Anxiety F41.9 [facility] [address] 24228- 0186 Oct, [facility] [address] 40202- 9875 Oct, Chronic pain G89.29 [facility] [address] 65631- 1401 September, Recurrent UTI N39.0 ; Neuropathy G62.9 and Anxiety F41.9 [facility] [id number] [place] [address] 67582- 7468 September, [facility] [id number] [place] [address] 79575- 6390 September, Chronic pain G89.29 [facility] [id number] [place] [address] 25341- 0694 September, [facility] [address] 50006- 4537 Aug, Post-traumatic stress disorder, chronic F43.12 ; Chronic urinary tract infection N39.0 ; Gastroesophageal reflux disease without esophagitis K21.9 ; Chronic pain G89.29 ; Essential hypertension I10 and Tobacco abuse Z72.0 [facility] [id number] [place] [address] 27832 -2013 Aug, [facility] [address] 35778- 2022 Aug, Chronic pain G89.29 [facility] [address] 58436- 3313 Aug, Insomnia, unspecified type G47.00 [facility] [id number] [place] [address] 20721- 4571 Aug, [facility] [id number] [place] [address] 68441- 1840 Jul, Chronic pain G89.29 [facility] [id number] [place] [address] 18234- 7232 Jul, [facility] [address] 54700- 2530 Jul, [facility] [id number] [place] [address] 70183- 4336 Jul, [facility] [address] 86364- 5790 15 Jul, 2016 Recurrent UTI (urinary tract infection) N39.0 [facility] [id number] [place] [address] 67595- 3422 14 Jul, 2016 [facility] [id number] [place] [address] 65053- 6795 27 Jun, 2016 Chronic pain G89.29 [facility] [id number] [place] [address] 68138- 5372 17 Jun, 2016 [facility] [id number] [place] [address] 31243- 5286 Jun, [facility] [id number] [place] [address] 11018- 2416 May, Chronic pain G89.29 [facility] [id number] [place] [address] 02859- 7662 May, Weight loss R63.4 and Shortness of breath R06.02 [facility] [id number] [place] [address] 50114- 6895 May, Chronic pain G89.29 ; Weight loss R63.4 and Tobacco abuse Z72.0 [facility] [id number] [place] [address] 42586- 8439 May, [facility] [id number] [place] [address] 59874- 0232 May, Hypoxia R09.02 [facility] [id number] [place] [address] 96823- 4242 May, [facility] [id number] [place] [address] 82375- 6466 May, Pulmonary emphysema, unspecified emphysema type J43.9 [facility] [id number] [place] [address] 12265 -3352 May, [facility] [id number] [place] [address] 82033- 3623 May, [facility] [id number] [place] [address] 29848- 0071 May, [facility] [address] 34422- 6979 May, Chronic pain G89.29 ; Encounter for immunization Z23 ; Right anterior knee pain M25.561 and Cough R05 [facility] [address] 86699- 1649 Apr, Chronic pain G89.29 [facility] [id number] [place] [address] 69507- 4803 Apr, [facility] [address] 13268- 3284 Apr, Generalized anxiety disorder F41.1 and Depression, unspecified depression type F32.9 [facility] [address] 82572- 0999 Apr, Chronic pain G89.29 ; Hypokalemia E87.6 and Insomnia, unspecified type G47.00 [facility] [id number] [place] [address] 11762- 2356 Apr, [facility] [id number] [place] [address] 67118- 4066 Apr, Chronic pain G89.29 [facility] [id number] [place] [address] 88392- 1930 Apr, [facility] [id number] [place] [address] 04749- 0637 Mar, [facility] [id number] [place] [address] 13412- 2664 Mar, Insomnia, unspecified type G47.00 [facility] [id number] [place] [address] 54821- 6786 Mar, Chronic pain G89.29 [facility] [id number] [place] [address] 54363- 7373 Mar, [facility] [address] [address]- 8064 Feb, [facility] [address], [place] [address]- 4576 Feb, [facility] [id number] [place] [address] 13316- 5635 Feb, [facility] [id number] [place] [address] 88018- 7251 Feb, [facility] [id number] [place] [address] 82039- 0461 Feb, [facility] [id number] [place] [address] 07296- 8546 29 Jan, 2016 [facility] [id number] [place] [address] 69267- 7201 26 Jan, 2015 [facility] [address], [place] [address]- 8933 20 Jan, 2015 [facility] [id number] [place] [address] 64462- 2448 13 Jan, 2015 [facility] [address], [place] [address]- 1397 12 Jan, 2016 [facility] [id number] [place] [address] 42048- 2561 07 Jan, 2015 Chronic pain G89.29 [facility] [address] [address]- 0286 Jan, 2015 Chronic pain G89.29 and Fibromyalgia M79.7 [facility] [address], [place] [address]- 1565 Dec, Depression, unspecified depression type F32.9 and Generalized anxiety disorder 300.02 [facility] [address], [place] [address]- 9907 Dec, Dysthymia F34.1 ; Insomnia, unspecified type G47.00 and Chronic pain G89.29 [facility] [address] [facility] [id number] [place] [address] 60443- 5645 Dec, Chronic pain G89.29 [facility] [id number] [place] [address] 39751 2546 Dec, Insomnia, unspecified type G47.00 [facility] [address] [facility] [id number] [place] [address] 64936 254 Dec, Fibromyalgia M79.7 and Chronic pain G89.29 [facility] [id number] [place] [address] 50256- 0316 Dec, [facility] [id number] [place] [address] 84635 2546 Dec, [facility] [id number] [place] [address] 54012- 1306 Dec, [facility] [id number] [place] [address] 96726 2546 Dec, [facility] [id number] [place] [address] 26695- 3167 Dec, Chronic pain G89.29 [facility] [id number] [place] [address] 00059 2544 Dec, [facility] [id number] [place] [address] 59767 2545 Dec, [facility] [id number] [place] [address] 55658 2546 Dec, [facility] [id number] [place] [address] 85317 2548 Dec, Chronic pain G89.29 and Dysthymia F34.1 [facility] [id number] [place] [address] 07893 254 Nov, [facility] [id number] [place] [address] 86671- 0611 Nov, Hypokalemia E87.6 and Chronic pain G89.29 [facility] [address] 95933- 4796 Nov, Back pain M54.9 and Pain in right knee M25.561 [facility] [address] 09822- 0261 Nov, [facility] [address] 42902- 0323 Nov, Chronic pain G89.29 [facility] [address] 33126- 4785 Nov, Chronic pain G89.29 ; Weight loss R63.4 ; Bone pain M89.8X9 and Insomnia, unspecified type G47.00 [facility] [address] 75725- 8925 Nov, Chronic pain G89.29 [facility] [address] 46373- 5288 Nov, Chronic pain G89.29 [facility] [address] 79268- 1848 30 Oct, 2015 Chronic pain G89.29 [facility] [id number] [place] [address] 60902- 7786 Oct, UTI symptoms R39.9 [facility] [id number] [place] [address] 63275- 2141 27 Oct, 2015 Chronic pain G89.29 [facility] [address] 59462- 3788 20 Oct, 2015 Chronic pain G89.29 [facility] [id number] [place] [address] 21571- 6935 13 Oct, 2015 Chronic pain G89.29 [facility] [address] 38240- 6033 Oct, Right upper quadrant abdominal pain R10.11 [facility] [address] [address]- 3339 Oct, Chronic pain G89.29 [facility] [address], [place] [address]- 2299 Oct, [facility] [id number] [place] [address] 10231- 9819 September, Chronic pain G89.29 [facility] [id number] [place] [address] 05069- 1106 September, Dysuria R30.0 and Urinary tract infection without hematuria , site unspecified N39.0 [facility] [id number] [place] [address] 43658- 9511 September, [facility] [id number] [place] [address] 62846- 9088 September, Dysuria R30.0 [facility] [id number] [place] [address] 82385- 0323 September, Chronic pain G89.29 [facility] [id number] [place] [address] 35902- 8827 September, Chronic pain G89.29 and Essential hypertension I10 [facility] [address], [place] [address]- 8293 September, [facility] [id number] [place] [address] 19013- 0671 September, [facility] [id number] [place] [address] 14886- 9515 September, [facility] [id number] [place] [address] 14765- 7730 Aug, UTI symptoms R39.9 [facility] [address], [place] [address]- 0134 Aug, Dysuria R30.0 [facility] [address], [place] [address]- 1546 Aug, [facility] [id number] [place] [address] 99636- 5418 Aug, [facility] [id number] [place] [address] 01964- 3846 Aug, [facility] [id number] [place] [address] 10713- 8174 Aug, Chronic pain G89.29 [facility] [id number] [place] [address] 36155- 5014 Aug, Dysthymia F34.1 [facility] [id number] [place] [address] 54616- 6476 Aug, Conjunctivitis, unspecified conjunctivitis type, unspecified laterality H10.9 [facility] [id number] [place] [address] 55574- 1030 Jul, Chronic pain G89.29 ; Back pain M54.9 ; Tobacco abuse Z72.0 and Weight decrease R63.4 [facility] [id number] [place] [address] 48413- 5190 Jul, [facility] [id number] [place] [id number]- [phone] Jul, [facility] [id number] [place] [id number]- [phone] 24 Jul, 2015 Chronic pain G89.29 [facility] [id number] [address] Jul, [facility] [id number] [place] [id number]- [id number] Jul, [facility] [id number] [place] [id number]- [phone] Jul, [facility] [id number] [place] [id number]- 3956 17 Jul, 2015 [facility] [id number] [address] 17 Jul, 2015 Chronic pain G89.29 [facility] [id number] [address] 16 Jul, 2015 Chronic pain G89.29 [facility] [facility] [id number] [place] [address] 31196- 9946 15 Jul, 2015 [facility] [id number] [place] [address] 71354- 2351 Jul, [facility] [id number] [place] [address] 63241- 2507 Jul, [facility] [id number] [place] [address] 43397- 5097 Jul, [facility] [id number] [place] [address] 38556- 1010 Jun, [facility] [id number] [place] [address] 68273- 1980 Jun, Depression, unspecified depression type F32.9 [facility] [id number] [place] [address] 94669- 1794 Jun, Pain in right knee M25.561 [facility] [id number] [place] [address] 23670- 7477 24 Jun, 2015 Chronic pain G89.29 ; Back pain M54.9 ; Bone pain M89.8X9 and Weight loss R63.4 [facility] [id number] [place] [address] 07000- 7785 Jun, [facility] [id number] [place] [address] 62562- 8819 May, [facility] [address] [address] 0980 May, UTI symptoms R39.9 ; Pain in right knee M25.561 ; Right low back pain, with sciatica presence unspecified M54.5 ; Right foot pain M79.671 ; Hypokalemia E87.6 and Screening, lipid Z13.220 [facility] [id number] [place] [address] 83831- 2432 May, [facility] [id number] [place] [address] 82117- 5491 May, [facility] [id number] [place] [address] 62130- 2698 Mar, [facility] [id number] [place] [address] 12459- 1917 Mar, [facility] [id number] [place] [address] 14215- 3630 Mar, Hypokalemia E87.6 [facility] [address] 0[address]34- 3676 Mar, Pain in right leg M79.604 ; Encounter for immunization Z23 ; Pain in right knee M25.561 and Hypokalemia E87.6 [facility] [id number] [place] [address] 99608- 1634 Jan, [facility] [id number] [place] [address] 68541- 1337 Jan, [facility] [id number] [place] [address] 84843 2545 Jan, Abdominal pain, generalized 789.07 [facility] [id number] [place] [address] 00212 2542 Jan, Abdominal pain, generalized 789.07 [facility] [id number] [place] [address] 14165- 5735 Dec, [facility] [id number] [place] [address] 65726- 4933 Dec, [facility] [address] [address]- 5166 Dec, [facility] [id number] [place] [address] 59421- 6241 Nov, Hallux valgus 735.0 and Hammertoe 735.4 [facility] [address] [address]- 9766 Nov, [facility] [id number] [place] [address] 33998- 6638 Nov, Hallux valgus 735.0 and Hammer toe 735.4 [facility] [id number] [place] [address] 56832- 7736 Oct, [facility] [id number] [place] [address] 25256- 7006 Oct, [facility] [id number] [place] [address] 81864- 9400 Oct, Pre-op evaluation V72.84 [facility] [address] [address]- 0300 Oct, [facility] [id number] [place] [address] 67079- 3952 Oct, [facility] [address] [address]- 2633 September, [facility] [address] [address] 2546 September, [facility] [id number] [address]- 0784 September, Hallux valgus (acquired) 735.0 and Other hammer toe ( acquired) 735.4 [facility] [address] [address]- 2546 Aug, [facility] [id number] [place] [address] 39931- 4771 Aug, [facility] [place] [facility] [address] [id number] [place] [address]- 9259 Jul, [facility] [place] [facility] [address] [id number] [place] [address]- 1931 Jul, [facility] [place] [facility] [address] [id number] [place] [address]- 9684 Jul, [facility] [place] [facility] [address] [id number] [place] [address]- 9413 Jul, [facility] [place] [facility] [address] [id number] [place] [address]- 2220 Jul, [facility] [place] [facility] [address] [id number] [place] [address]- 0400 Jul, [facility] [place] [facility] [address] [facility] [id number] [place] [address]- 7039 Jul, [facility] [place] [facility] [address] [id number] [place] [address]- 6188 Jul, [facility] [place] [facility] [address] [id number] [place] [address]- 4550 Jun, [facility] [place] [facility] [address] [facility] [id number] [place] [address]- 7994 Jun, [facility] [place] [facility] [address] [id number] [place] [address]- 8300 Jun, 2014 [facility] [place] [facility] [address] [id number] [place] [address]- 2318 Jun, [facility] [place] [facility] [address] [id number] [place] [address]- 7340 Jun, [facility] [place] [facility] [address] [id number] [place] [address]- 2138 Jun, [facility] [place] [facility] [address] [facility] [id number] [place] [address]- 9341 Jun, [facility] [place] [facility] [address] [id number] [place] [address]- 2439 Jun, [facility] [address] [id number] [place] [address]- 0631 Jun, [facility] [place] [facility] [address] [id number] [place] [address]- 7086 Jun, [facility] [place] [facility] [address] [id number] [place] [address]- 8094 May, [facility] [place] [facility] [address] [id number] [place] [address]- 5348 May, [facility] [place] [facility] [address] [id number] [place] [address]- 8749 May, [facility] [place] [facility] [address] [id number] [place] [address]- 9749 May, [facility] [place] [facility] [address] [id number] [place] [address]- 5940 May, [facility] [address] [id number] [place] [address]- 1345 May, [facility] [place] [facility] [address] [id number] [place] [address]- 2030 May, [facility] [place] [facility] [address] [id number] [place] [address]- 2258 May, [facility] [place] [facility] [address] [id number] [place] [address]- 2190 May, [facility] [place] [facility] [address] [id number] [place] [address]- 3710 May, [facility] [place] [facility] [address] [id number] [place] [address]- 1591 May, [facility] [place] [facility] [address] [id number] [place] [address]- 7446 May, [facility] [place] [facility] [address] [id number] [place] [address]- 6947 May, [facility] [place] [facility] [address] [id number] [place] [address]- 9606 May, [facility] [place] [facility] [address] [id number] [place] [address]- 3578 May, [facility] [place] [facility] [address] [id number] [place] [address]- 8138 May, [facility] [place] [facility] [address] [id number] [place] [address]- 1226 May, [facility] [place] [facility] [address] [id number] [place] [address]- 3945 May, [facility] [place] [facility] [address] [id number] [place] [address]- 5955 Apr, [facility] [place] [facility] [address] [id number] [place] [address]- 9074 Apr, [facility] [place] [facility] [address] [id number] [place] [address]- 2326 Apr, [facility] [place] [facility] [address] [id number] [place] [address]- 9715 Apr, [facility] [place] [facility] [address] [id number] [place] [address]- 6340 Apr, [facility] [place] [facility] [address] [id number] [place] [address]- 8954 Apr, [facility] [place] [facility] [address] [id number] [place] [address]- 7789 Apr, [facility] [place] [facility] [address] [id number] [place] [address]- 0650 Apr, [facility] [place] [facility] [address] [id number] [place] [address]- 5048 Apr, [facility] [place] [facility] [address] [id number] [place] [address]- 8342 Mar, [facility] [place] [facility] [address] [id number] [place] [address]- 3466 Mar, [facility] [place] [facility] [address] [id number] [place] [address]- 3635 Mar, [facility] [place] [facility] [address] [id number] [place] [address]- 8131 Mar, [facility] [place] [facility] [address] [id number] [place] [address]- 9419 Mar, [facility] [place] [facility] [address] [id number] [place] [address]- 3062 Feb, [facility] [place] [facility] [address] [id number] [place] [address]- 7837 Feb, [facility] [place] [facility] [address] [id number] [place] [address]- 2296 Feb, [facility] [place] [facility] [address] [id number] [place] [address]- 6631 Feb, [facility] [place] [facility] [address] [id number] [place] [address]- 6047 Feb, [facility] [place] [facility] [address] [id number] [place] [address]- 6683 Feb, [facility] [place] [facility] [address] [id number] [place] [address]- 4491 Feb, [facility] [place] [facility] [address] [id number] [place] [address]- 9452 Feb, [facility] [place] [facility] [address] [id number] [address]- 1574 Feb, [facility] [place] [facility] [address] [id number] 8686 Feb, [facility] [place] [facility] [address] [id number] [address]- 8142 Feb, [facility] [place] [facility] [address] [id number] 3776 Feb, [facility] [place] [facility] [address] [id number] [place] [address]- 9727 07 Feb, 2013 [facility] [place] [facility] [address] [id number] [place] [address]- 9024 Feb, [facility] [place] [facility] [address] [id number] [place] [address]- 5331 Feb, 2013 [facility] [place] [facility] [address] [id number] [place] [address]- 6966 Feb, [facility] [place] [facility] [address] [id number] [place] [address]- 6929 Jan, 2013 [facility] [place] [facility] [address] [id number] [place] [address]- 9040 23 Jan, 2013 [facility] [place] [facility] [address] [id number] [place] [address]- 0928 20 Jan, 2014 [facility] [place] [facility] [address] [id number] [place] [address]- 6603 19 Jan, 2013 [facility] [place] [facility] [address] [id number] [place] [address]- 4812 11 Jan, 2014 [facility] [place] [facility] [address] [id number] [place] [address]- 4878 Jan, [facility] [place] [facility] [address] [id number] [place] [address]- 3457 Jan, [facility] [place] [facility] [address] [id number] [place] [address]- 3954 Jan, 2013 [facility] [place] [facility] [address] [id number] [place] [address]- 3725 Dec, [facility] [place] [facility] [address] [id number] [place] [address]- 3576 Dec, [facility] [place] [facility] [address] [id number] [place] [address]- 0262 Nov, [facility] [place] [facility] [address] [id number] [place] [address]- 8154 Nov, [facility] [place] [facility] [address] [id number] [place] [address]- 0715 Nov, [facility] [place] [facility] [address] [id number] [place] [address]- 9294 Nov, [facility] [place] [facility] [address] [id number] [place] [address]- 9653 Nov, [facility] [place] [facility] [address] [id number] [place] [address]- 0516 Nov, [facility] [place] [facility] [address] [id number] [place] [address]- 7354 Nov, [facility] [place] [facility] [address] [id number] [place] [address]- 6543 Nov, [facility] [place] [facility] [address] [id number] [place] [address]- 3721 Nov, [facility] [place] [facility] [address] [id number] [place] [address]- 1939 Oct, [facility] [place] [facility] [address] [id number] [place] [address]- 2823 Oct, [facility] [place] [facility] [address] [id number] [place] [address]- 4119 Oct, [facility] [place] [facility] [address] [id number] [place] [address]- 5721 Oct, [facility] [place] [facility] [address] [id number] [place] [address]- 1225 Oct, [facility] [place] [facility] [address] [id number] [place] [address]- 6905 Oct, [facility] [place] [facility] [address] [id number] [place] [address]- 4127 September, [facility] [place] [facility] [address] [id number] [place] [address]- 1879 September, [facility] [place] [facility] [address] [id number] [place] [address]- 4274 September, [facility] [address] [id number] [place] 2936 September, [facility] [address] [id number] [place] [address]- 9356 September, [facility] [address] [id number] [place] [address]- 6510 September, [facility] [address] [id number] [place] [address]- 9714 September, [facility] [address] [id number] [place] 1546 September, [facility] [address] [id number] [place] [address]- 0082 September, [facility] [address] [id number] [place] [address]- 1932 September, [facility] [address] [id number] [place] [address]- 0690 September, [facility] [address] [id number] [place] [address]- 6655 September, [facility] [address] [id number] [place] [address]- 9529 September, [facility] [address] [id number] [place] [address]- 1570 September, [facility] [address] [id number] [place] [address]- 6397 September, [facility] [place] [facility] [address] [id number] [place] 9845 September, [facility] [place] [facility] [address] [id number] [place] 3431 September, [facility] [address] [id number] [place] [address]- 6115 September, [facility] [place] [facility] [address] [id number] [place] [address]- 7642 September, [facility] [place] [facility] [address] [id number] [place] [address]- 7412 September, [facility] [place] [facility] [address] [id number] [place] [address]- 9437 Aug, [facility] [place] [facility] [address] [id number] [place] [address]- 9820 Aug, [facility] [place] [facility] [address] [id number] [place] [address]- 4252 Aug, [facility] [place] [facility] [address] [id number] [place] [address]- 2048 Aug, [facility] [place] [facility] [address] [id number] [place] [address]- 6015 Aug, [facility] [place] [facility] [address] [id number] [place] [address]- 9052 Aug, [facility] [place] [facility] [address] [id number] [place] [address]- 6384 Aug, [facility] [place] [facility] [address] [id number] [place] [address]- 5763 Aug, [facility] [place] [facility] [address] [id number] [place] [address]- 6350 Aug, [facility] [place] [facility] [address] [id number] [place] [address]- 1167 Aug, [facility] [place] [facility] [address] [id number] [place] [address]- 3777 Aug, [facility] [place] [facility] [address] [id number] [place] [address]- 3831 Aug, [facility] [place] [facility] [address] [id number] [place] [address]- 3441 Aug, [facility] [place] [facility] [address] [id number] [place] [address]- 5513 Aug, [facility] [place] [facility] [address] [id number] [place] [address]- 1967 Aug, [facility] [place] [facility] [address] [id number] [place] [address]- 0751 Jul, [facility] [place] [facility] [address] [id number] [place] [address]- 4490 Jul, [facility] [place] [facility] [address] [id number] [place] [address]- 2147 Jul, [facility] [place] [facility] [address] [id number] [place] [address]- 8325 Jul, [facility] [place] [facility] [address] [id number] [place] [address]- 4260 Jul, [facility] [place] [facility] [address] [id number] [place] [address]- 6066 Jul, [facility] [place] [facility] [address] [id number] [place] [address]- 3419 Jul, [facility] [place] [facility] [address] [id number] [place] [address]- 8549 Jul, [facility] [place] [facility] [address] [id number] [place] [address]- 5762 Jul, [facility] [place] [facility] [address] [id number] [place] [address]- 6584 Jul, [facility] [place] [facility] [address] [id number] [place] [address]- 9362 Jul, [facility] [place] [facility] [address] [id number] [place] [address]- 8549 Jul, [facility] [place] [facility] [address] [id number] [place] [address]- 1657 Jul, [facility] [place] [facility] [address] [id number] [place] [address]- 6625 Jul, [facility] [place] [facility] [address] [id number] [place] [address]- 9646 Jul, [facility] [place] [facility] [address] [id number] [place] [address]- 0549 Jun, [facility] [place] [facility] [address] [id number] [place] [address]- 6266 Jun, [facility] [place] [facility] [address] [id number] [place] [address]- 0586 Jun, [facility] [place] [facility] [address] [id number] [place] [address]- 8909 Jun, [facility] [place] [facility] [address] [id number] [place] [address]- 2340 Jun, [facility] [place] [facility] [address] [id number] [place] [address]- 7673 Jun, [facility] [place] [facility] [address] [id number] [place] [address]- 1102 May, [facility] [place] [facility] [address] [id number] [place] [address]- 4802 May, [facility] [place] [facility] [address] [id number] [place] [address]- 7355 May, [facility] [place] [facility] [address] [id number] [place] [address]- 1804 May, [facility] [place] [facility] [address] [id number] [place] [address]- 4661 May, [facility] [place] [facility] [address] [id number] [place] [address]- 5[address] May, [facility] [place] [facility] [address] [id number] [place] [address] May, [facility] [place] [facility] [address] [id number] [place] [address] May, [facility] [place] [facility] [address] [id number] [place] [address] May, [facility] [address] [id number] [place] [address] May, [facility] [place] [facility] [address] [id number] [place] [address] May, [facility] [place] [facility] [address] [id number] [place] [address] May, [facility] [place] [facility] [address] [id number] [place] [address] May, [facility] [place] [facility] [address] [id number] [place] [address] May, [facility] [place] [facility] [address] [id number] [place] [address]- [address] May, [facility] [place] [facility] [address] [id number] [place] [address] Apr, [facility] [place] [facility] [address] [id number] [place] [address] Apr, [facility] [place] [facility] [address] [id number] [place] [address] Apr, [facility] [place] [facility] [address] [id number] [place] [address] Apr, [facility] [place] [facility] [address] [id number] [place] [address] Apr, [facility] [place] [facility] [address] [id number] [place] [address]- [address] Apr, [facility] [place] [facility] [address] [id number] [place] [address]- [address] Apr, [facility] [place] [facility] [address] [id number] [place] [address] Apr, [facility] [place] [facility] [address] [id number] [place] [address]- [address] Apr, [facility] [place] [facility] [address] [id number] [place] [address]- [address] Apr, [facility] [address] [id number] [place] [address] Mar, [facility] [address] [id number] [place] [address]- [address] Mar, [facility] [address] [id number] [place] [address]40 Mar, [facility] [address] [id number] [place] [address]- 90[address] Mar, [facility] [address] [id number] [place] [address]- 68[address] Mar, [facility] [address] [id number] [place] [address]- [address] Mar, [facility] [address] [id number] [place] [address]- [address] Mar, [facility] [address] [id number] [place] [address]- 94[address] Mar, [facility] [address] [id number] [place] [address]- [address] Mar, [facility] [address] [id number] [place] [address] Mar, [facility] [address] [id number] [place] [address]- 2825 Mar, [facility] [address] [id number] [place] [address]- [address] Mar, [facility] [place] [facility] [address] [id number] [place] [address]- [address]958 Mar, [facility] [place] [facility] [address] [id number] [place] [address]- [address] Mar, [facility] [address] [id number] [place] [address]- [address] Mar, [facility] [place] [facility] [address] [id number] [place] [address]- [address] 18 Mar, 2013 [facility] [place] [facility] [address] [id number] [place] [address]- [address] Mar, [facility] [place] [facility] [address] [id number] [place] [address]- 1284 Mar, [facility] [place] [facility] [address] [id number] [place] [address]- [address]267 Mar, [facility] [place] [facility] [address] [id number] [place] [address]- 9846 Mar, [facility] [place] [facility] [address] [id number] [place] [address]- 8483 Mar, [facility] [place] [facility] [address] [id number] [place] [address]- [address] Mar, [facility] [place] [facility] [address] [id number], [place] [address] Mar, [facility] [place] [facility] [address] [id number], [place] [address] Feb, [facility] [place] [facility] [address] [id number], [place] [address] Feb, [facility] [place] [facility] [address] [id number], [place] [address] Feb, [facility] [place] [facility] [address] [id number], [place] [address] 16 Feb, 2013 [facility] [place] [facility] [address] [id number], [place] [address] 15 Feb, 2013 [facility] [place] [facility] [address] [id number], [place] [address]- [address] Feb, [facility] [place] [facility] [address] [facility] [id number], [place] [address] Feb, [facility] [place] [facility] [address] [id number], [place] [address] Feb, [facility] [address] [id number] [place] [address]- 4780 Feb, [facility] [place] [facility] [address] [id number] [place] [address]- [address] Feb, [facility] [place] [facility] [address] [id number] [place] [address]- [address] 30 Jan, 2013 [facility] [place] [facility] [address] [id number] [place] [address]- [address]47 26 Jan, 2013 [facility] [place] [facility] [address] [id number] [place] [address]- [address] 24 Jan, 2013 [facility] [place] [facility] [address] [id number] [place] [address]- [address] 23 Jan, 2013 [facility] [place] [facility] [address] [id number] [place] [address]- [address]329 17 Jan, 2013 [facility] [place] [facility] [address] [id number] [place] [address] Dec, [facility] [place] [facility] [address] [id number] [place] [address]- 35[address] Dec, [facility] [place] [facility] [address] [id number] [place] [address]- 68[address] Dec, [facility] [place] [facility] [address] [id number] [place] [address] 15 Dec, 2012 [facility] [place] [facility] [address] [id number] [place] [address] 14 Dec, 2012 [facility] [place] [facility] [address] [id number] [place] [address] 44[address] Dec, [facility] [place] [facility] [address] [id number] [place] [address] 99[address] Dec, [facility] [place] [facility] [address] [id number] [place] [address] 4[address] Nov, [facility] [place] [facility] [address] [id number] [place] [address] 16 Nov, 2012 [facility] [address] [id number] [place] [address]- 0486 15 Nov, 2012 [facility] [place] [facility] [address] [id number] [place] [address]- 2546 05 Nov, 2012 [facility] [address] [id number] [place] [address] 2546 Nov, [facility] [place] [facility] [address] [id number] [place] [address] Oct, [facility] [address] [id number] [place] [address] 73[address] Oct, [facility] [place] [facility] [address] [id number] [place] [address] 2546 Oct, [facility] [address] [id number] [place] [address] 3386 September, [facility] [address] [id number] [place] [address]- 3366 September, [facility] [address] [id number] [place] [address]- 7336 September, [facility] [address] [id number] [place] [address]- 6196 September, [facility] [place] [facility] [address] [id number] [place] [address]- 1736 September, [facility] [address] [id number] [place] [address]- 2546 September, [facility] [place] [facility] [address] [id number] [place] [address]- 2546 September, [facility] [place] [facility] [address] [id number] [place] [address]- 2546 Aug, [facility] [place] [facility] [address] [id number] [place] [address]- 5392 23 Aug, 2012 [facility] [place] [facility] [address] [id number] [place] [address]- 1872 11 Aug, 2012 [facility] [place] [facility] [address] [id number] [place] [address]- 1176 29 Jul, 2012 [facility] [place] [facility] [address] [id number] [place] [address]- 4123 27 Jul, 2012 [facility] [place] [facility] [address] [id number] [place] [address]- 6725 26 Jul, 2012 [facility] [place] [facility] [address] [id number] [place] [address]- 7072 20 Jul, 2012 [facility] [place] [facility] [address] [id number] [place] [address]- 3973 18 Jul, 2012 [facility] [place] [facility] [address] [facility] [id number] [place] [address]- 1947 18 Jul, 2012 [facility] [place] [facility] [address] [id number] [place] [address]- 5722 13 Jul, 2012 [facility] [place] [facility] [address] [id number] [place] [address]- 2815 28 Jun, 2012 [facility] [place] [facility] [address] [facility] [id number] [place] [address]- 7038 27 Jun, 2012 [facility] [place] [facility] [address] [facility] [id number] [place] [address]- 1198 22 Jun, 2012 [facility] [place] [facility] [address] [id number] [place] [address]- 4447 20 Jun, 2012 [facility] [place] [facility] [address] [id number] [place] [address]- 7715 15 Jun, 2012 [facility] [place] [facility] [address] [id number] [place] [address]- 5833 15 Jun, 2012 [facility] [place] [facility] [address] [facility] [id number] [place] [address]- 2695 13 Jun, 2012 [facility] [place] [facility] [address] [id number] [place] [address]- 5796 Jun, [facility] [address] [id number] [place] [address]- 1436 Jun, [facility] [place] [facility] [address] [id number] [place] [address]- 2546 Jun, [facility] [address] [id number] [place] [address]- 7746 May, [facility] [place] [facility] [address] [id number] [place] [address] 2540 May, [facility] [address] [id number] [place] [address]- 3276 May, [facility] [address] [id number] [place] [address]- 5050 May, [facility] [address] [id number] [place] [address]- 9506 May, [facility] [address] [id number] [place] [address]- 1421 May, [facility] [address] [id number] [place] [address]- 8349 31 Apr, 2012 [facility] [address] [id number] [place] [address] 2546 31 Apr, 2012 [facility] [address] [id number] [place] [address] 2546 Apr, [facility] [place] [facility] [address] [id number] [place] [address] 2547 28 Apr, 2012 [facility] [place] [facility] [address] [id number] [place] [address] 2546 26 Apr, 2012 [facility] [place] [facility] [address] [id number] [place] [address]- 2546 20 Apr, 2012 [facility] [place] [facility] [address] [id number] [place] [address]- 9029 Apr, [facility] [place] [facility] [address] [id number] [place] [address]- 4433 Mar, [facility] [place] [facility] [address] [id number] [place] [address]- 8641 Mar, [facility] [place] [facility] [address] [facility] [id number] [place] [address]- 3657 Mar, [facility] [place] [facility] [address] [id number] [place] [address]- 9226 Mar, [facility] [place] [facility] [address] [id number] [place] [address]- 0832 Mar, [facility] [place] [facility] [address] [id number] [address]- 7438 Mar, [facility] [place] [facility] [address] [id number] [place] [address]- 3104 Mar, [facility] [place] [facility] [address] [id number], [place] [address]- 1384 Mar, [facility] [place] [facility] [address] [id number], [place] [address]- 8238 Mar, [facility] [place] [facility] [address] [id number], [place] [address]- 3434 Mar, [facility] [place] [facility] [address] [id number][place] [address]- 3951 Mar, [facility] [place] [facility] [address] [id number], [place] [address]- 1859 Mar, [facility] [place] [facility] [address] [id number], [place] [address]- 0800 Mar, [facility] [place] [facility] [address] [facility] [id number][place] [address]- 2614 Mar, [facility] [place] [facility] [address] [facility] [id number] [address]- 4663 Mar, [facility] [place] [facility] [address] [id number] [place] [address]- 8256 Mar, [facility] [place] [facility] [address] [id number] [place] [address]- 7081 Mar, [facility] [place] [facility] [address] [id number] [place] [address]- 5844 Feb, [facility] [place] [facility] [address] [id number] [place] [address]- 3430 Feb, 2011 [facility] [place] [facility] [address] [id number] [place] [address]- 6016 Feb, [facility] [place] [facility] [address] [id number] [place] [address]- 7335 Feb, [facility] [place] [facility] [address] [id number] [place] [address]- 4384 Feb, [facility] [place] [facility] [address] [id number] [place] [address]- 5922 Feb, [facility] [place] [facility] [address] [id number] [place] [address]- 5155 Feb, [facility] [place] [facility] [address] [id number] [place] [address]- 7669 Feb, [facility] [place] [facility] [address] [facility] [id number] [place] [address]- 3534 Feb, [facility] [place] [facility] [address] [id number] [place] [address]- 4109 Feb, [facility] [place] [facility] [address] [id number] [place] [address]- 5233 Feb, [facility] [place] [facility] [address] [id number] [place] [address]- 1846 27 Jan, 2011 [facility] [place] [facility] [address] [id number] [place] [address]- 5832 25 Jan, 2012 [facility] [place] [facility] [address] [id number] [place] [address]- 6493 13 Jan, 2012 [facility] [place] [facility] [address] [id number] [place] [address]- 6930 12 Jan, 2012 [facility] [place] [facility] [address] [id number] [place] [address]- 6514 Jan, [facility] [place] [facility] [address] [id number] [place] [address]- 3526 Dec, [facility] [place] [facility] [address] [id number] [place] [address]- 9852 Dec, [facility] [place] [facility] [address] [id number] [place] [address]- 4128 Dec, [facility] [place] [facility] [address] [id number] [place] [address]- 4493 Dec, [facility] [place] [facility] [address] [id number] [place] [address]- 0439 Dec, [facility] [place] [facility] [address] [id number] [place] [address]- 9368 Dec, [facility] [place] [facility] [address] [id number] [place] [address]- 1323 Dec, [facility] [place] [facility] [address] [id number] [place] [address]- 1237 Dec, [facility] [place] [facility] [address] [id number] [place] [address]- 3758 Nov, [facility] [place] [facility] [address] [id number] [place] [address]- 6768 Nov, [facility] [place] [facility] [address] [id number] [place] [address]- 6623 Nov, [facility] [place] [facility] [address] [id number] [place] [address]- 5663 Nov, [facility] [place] [facility] [address] [id number] [place] [address]- 8611 Nov, [facility] [place] [facility] [address] [id number] [place] [address]- 7021 Oct, [facility] [address] [id number] [place]61 Oct, [facility] [place] [facility] [address] [id number] [place] [address]- 8426 September, [facility] [address] [id number] [place] [address]- 1886 September, [facility] [place] [facility] [address] [id number] [place] [address]- 9099 September, [facility] [address] [id number] [place] [address]- 3483 September, [facility] [place] [facility] [address] [id number] [place] [address]- 2380 September, [facility] [address] [id number] [place] [address]- 4314 September, [facility] [place] [facility] [address] [id number] [place] [address]- 0462 September, [facility] [place] [facility] [address] [id number] [place] [address]- 1077 September, [facility] [place] [facility] [address] [id number] [place] [address]- 4413 September, [facility] [place] [facility] [address] [id number] [place] [address]- 2470 September, [facility] [place] [facility] [address] [id number] [place] [address]- 2461 September, [facility] [place] [facility] [address] [id number] [place] [address]- 0701 September, [facility] [place] [facility] [address] [id number] [place] [address]- 0917 September, [facility] [place] [facility] [address] [id number] [place] [address]- 7202 September, [facility] [place] [facility] [address] [id number] [place] [address]- 4428 24 Aug, 2011 [facility] [address] [id number] [place] [address]- 6294 20 Aug, 2011 [facility] [address] [id number] [place] [address]- 6866 13 Aug, 2011 [facility] [address] [id number] [place] [address]- 2824 11 Aug, 2011 [facility] [address] [id number] [place] [address]- 0340 23 Jul, 2011 [facility] [address] [id number] [place] [address]- 3670 13 Jul, 2011 [facility] [address] [id number] [place] [address]- 0596 13 Jul, 2011 [facility] [address] [id number] [place] [address]- 3558 28 Jun, [address] [facility] [address] [id number] [id number] 26 Jun, 2011 [facility] [address] [id number] [place] [address]- 7162 13 Jun, 2011 [facility] [address] [id number] [place] [address]- 7984 10 Jun, 2011 [facility] [address] [id number] [place] [address]- 5656 07 Jun, 2011 [facility] [address] [id number] [place] [address]- 0466 07 Jun, 2011 [facility] [place] [facility] [address] [id number] [place] [address]- 7766 03 Jun, 2011 [facility] [place] [facility] [address] [id number] [place] [address]- 3266 02 Jun, 2011 [facility] [place] [facility] [address] [id number] [place] [address]- 8009 31 May, 2011 [facility] [address] [id number] [place] [address]- 5215 30 May, 2011 [facility] [address] [id number] [place] [address]- 7108 May, [facility] [address] [id number] [place] [address]- 3181 May, [facility] [address] [id number] [place] [address]- 7050 May, [facility] [address] [id number] [place] [address]- 8441 May, [facility] [address] [id number] [place] [address]- 2645 May, [facility] [address] [id number] [place] [address]- 0373 May, [facility] [place] [facility] [address] [id number] [place] [address]- 8976 May, [facility] [address] [id number] [place] [address]- 5035 May, [facility] [place] [facility] [address] [id number] [place] [address]- 6358 May, [facility] [address] [id number], [place] [address]- 2403 May, [facility] [place] [facility] [address] [id number], [place] [address]- 0183 May, [facility] [place] [facility] [address] [id number] [place] [address]- 0472 May, [facility] [place] [facility] [address] [id number] [place] [address]- 8543 30 Apr, 2011 [facility] [place] [facility] [address] [id number] [place] [address]- 4388 16 Apr, 2011 [facility] [place] [facility] [address] [id number] [place] [address]- 0850 05 Apr, 2011 [facility] [place] [facility] [address] [id number] [place] [address]- 3426 17 Mar, 2011 [facility] [place] [facility] [address] [id number] [place] [address] 2546 Mar, [facility] [place] [facility] [address] [id number] [place] [address]- 7726 31 Feb, 2011 [facility] [place] [facility] [address] [id number] [place] [address] 2546 26 Feb, 2011 [facility] [place] [facility] [address] [id number] [place] [address]- 1203 Feb, [facility] [place] [facility] [address] [id number] [place] [address]- 8948 20 Feb, 2011 [facility] [place] [facility] [address] [id number] [place] [address]- 1500 13 Feb, 2011 [facility] [place] [facility] [address] [id number] [place] [address]- 8648 28 Apr, 2010 [facility] [place] [facility] [address] [id number] [place] [address] 2546 22 Apr, 2010 [facility] [place] [facility] [address] [facility] [id number] [place] [address] 2549 16 Apr, 2010 [facility] [place] [facility] [address] [id number] [place] [address] 2546 15 Apr, 2010 [facility] [place] [facility] [address] [id number] [place] [address] 2546 15 Apr, 2010 [facility] [place] [facility] [address] [id number] [place] [address] 2546 Apr, [facility] [place] [facility] [address] [id number] [place] [address] 2546 24 Mar, 2010 [facility] [place] [facility] [address] [id number] [place] [address] 2545 17 Mar, 2010 [facility] [id number], [place] [address]- 5604 17 Mar, 2010 [facility] [id number], [place] [address]- 3709 28 Feb, 2010 [facility] [id number], [place] [address]- 6156 Feb, [facility] [id number] [place] [address]80- 5901 Feb, [facility] [id number], [place] [address]- 4586 Feb, [facility] [id number] [place] [address] 25923- 7990 Dec, [facility] [id number], [place] [address]- 4546 Dec, [facility] [id number] [place] [address] 76272- 7554 Oct, [facility] [id number], [place] [address]- 9053 Mar, [facility] [id number], [place] [address]- 4857 Mar, [facility] [id number], [place] [address]- 2365 September, IMMUNIZATIONS No Known Immunizations SOCIAL HISTORY Never Assessed REASON FOR VISIT EMR-[facility] PLAN OF CARE VITAL SIGNS MEDICATIONS [...]
--- OUTSIDE RECORDS SUMMARY | 2018-09-19 09:18 | XMS REPORT ---
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 Name Role Phone Migration, Doctor Unavailable Unavailable PROBLEMS Type Condition ICD9-CM Code [id number] Code Onset Dates Condition Status SNOMED Code Problem Hypokalemia E87.6 Active 689703172 Problem Generalized anxiety disorder F41.1 Active 84484513 Problem Pain in right knee M25.561 Active 70701779 Problem Right low back pain, with sciatica presence unspecified M54.5 Active 868583099 Problem Right foot pain M79.671 Active 69815094 Problem UTI symptoms R39.9 Active 95143306 Problem Essential hypertension I10 Active 15802686 Problem Gastroesophageal reflux disease without esophagitis K21.9 Active 371225708 Problem Weight decrease R63.4 Active 085458331 Problem Depression, unspecified depression type F32.9 Active 69397420 Problem Right upper quadrant abdominal pain R10.11 Active 193908077 Problem Tobacco abuse Z72.0 Active 12251622 Problem Insomnia, unspecified type G47.00 Active 692974934 Problem Weight loss R63.4 Active 844745423 Problem Post-traumatic stress disorder, chronic F43.12 Active 09782573 Problem Pulmonary emphysema, unspecified emphysema type J43.9 Active 99403939 Problem Neuropathy G62.9 Active 890106633 Problem Anxiety F41.9 Active 06436196 Problem Other emphysema J43.8 Active 15112661 Problem Other chronic pain G89.29 Active 00863981 Problem Chronic pain G89.29 Active 70005659 Problem Opioid use disorder, moderate, dependence F11.20 Active 03458307 Problem Back pain M54.9 Active 397595212 Problem Bone pain M89.8X9 Active 72222515 Problem Panic attacks F41.0 Active 368347427 Problem Kidney stones N20.0 Active 51368306 Problem Renal calculus, right N20.0 Active 60385244 Problem Generalized abdominal pain R10.84 Active [id number] ALLERGIES No Information ENCOUNTERS Encounter Location Date Diagnosis [facility] [address], [place] [address] Feb, [facility] [id number] [place] [address] 74201- 0256 Dec, [facility] [id number] [place] [address] 31193- 9136 Dec, [facility] [id number] [place] [address] 65236- 2130 Dec, Medicare welcome exam Z00.00 [facility] [id number] [place] [address] 42847- 2600 17 Nov, 2017 Opioid use disorder, moderate, dependence F11.20 [facility] [id number] [place] [address] 00441- 0692 16 Nov, 2017 Pelvic pain R10.2 ; Acute pyelonephritis N10 and Essential hypertension I10 [facility] [id number] [place] [address] 10153- 2403 28 Oct, 2017 Medicare welcome exam Z00.00 [facility] [id number] [place] [address] 73221- 0415 Oct, Gross hematuria R31.0 ; Urinary tract infection without hematuria, site unspecified N39.0 and Weakness R53.1 [facility] [id number] [place] [address] 60827- 8108 Oct, [facility] [id number] [place] [address] 38272- 5578 Oct, [facility] [id number] [place] [address] 38584- 9216 Oct, Medicare welcome exam Z00.00 [facility] [id number] [place] [address] 93228- 9754 September, Back pain M54.9 and Right anterior knee pain M25.561 [facility] [id number] [place] [address] 37328- 2125 September, [facility] [address], [place] [address] 3439 September, [facility] [id number] [place] [address] 67669- 7963 September, Essential hypertension I10 [facility] [id number] [place] [address] 48225- 5306 September, [facility] [id number] [place] [address] 65544- 2589 September, RLQ abdominal pain R10.31 ; Low back pain M54.5 and Other chronic pain G89.29 [facility] [id number] [place] [address] 15095- 8954 Aug, Medicare welcome exam Z00.00 [facility] [id number] [place] [address] 49832- 3975 Aug, [facility] [id number] [place] [address] 46597- 5520 Aug, Acute pyelonephritis N10 and Medicare welcome exam Z00.00 [facility] [id number] [place] [address] 18453 -8986 Aug, Dysuria R30.0 and Acute pyelonephritis N10 [facility] [address], [place] [address]- 7076 Aug, [facility] [id number] [place] [address] 66266- 4924 Aug, [facility] [id number] [place] [address] 99813- 1551 Aug, [facility] [id number] [place] [address] 28348- 9963 Aug, [facility] [address], [place] [address]- 8489 Jul, [facility] [id number] [place] [address] 90072- 4607 Jul, Renal calculus, right N20.0 and Medicare welcome exam Z00.00 [facility] [id number] [place] [address] 73923 -7513 Jul, Dysuria R30.0 and Renal calculus, right N20.0 [facility] [id number] [place] [address] 47116- 5599 Jul, Medicare welcome exam Z00.00 [facility] [id number] [place] [address] 98795- 6998 Jun, Gastroesophageal reflux disease without esophagitis K21.9 and Generalized abdominal pain R10.84 [facility] [id number] [place] [address] 82480- 4104 Jun, Medicare welcome exam Z00.00 [facility] [id number] [place] [address] 38939- 6711 Jun, [facility] [id number] [place] [address] 25110- 6719 Jun, Medicare welcome exam Z00.00 and Encounter for screening mammogram for malignant neoplasm of breast Z12.31 [facility] [id number] [place] [address] 51142- 6887 Jun, Chronic pain G89.29 [facility] [id number] [place] [address] 54793- 1737 May, [facility] [id number] [place] [address] 21824- 8157 May, Pelvic pain R10.2 [facility] [id number] [place] [address] 54698- 4167 May, Pelvic pain R10.2 [facility] [id number] [place] [address] 79680 -3847 May, Renal calculus, right N20.0 [facility] [id number] [place] [address] 72950- 7557 May, Hematuria, unspecified type R31.9 and Nephrolithiasis N20.0 [facility] [id number] [place] [address] 64328 -9654 May, Dysuria R30.0 and Nephrolithiasis N20.0 [facility] [id number] [place] [address] 58346- 3707 May, [facility] [id number] [place] [address] 02863 -7544 May, Abdominal pain R10.9 and Kidney stone N20.0 [facility] [id number] [place] [address] 55089- 2188 May, [facility] [id number] [place] [address] 64408- 2238 May, Chronic pain G89.29 and Panic attacks F41.0 [facility] [id number] [place] [address] 69504- 0107 May, Urinary tract infection without hematuria, site unspecified N39.0 [facility] [id number] [place] [address] 64621- 7875 Apr, Right lower quadrant abdominal pain R10.31 and Abnormal serum lipase level R74.8 [facility] [id number] [place] [address] 19589- 1407 Apr, Recurrent urinary tract infection N39.0 [facility] [id number] [place] [address] 64020- 0003 Apr, UTI symptoms R39.9 ; Recurrent urinary tract infection N39.0 and Pelvic pain R10.2 [facility] [id number] [place] [address] 69696- 5773 Apr, Chronic pain G89.29 and Panic attacks F41.0 [facility] [id number] [place] [address] 46107- 7581 Apr, Dysuria R30.0 [facility] [id number] [place] [address] 38409- 2008 Apr, [facility] [id number] [place] [address] 48470- 1439 Apr, Dysuria R30.0 and Urinary tract infection without hematuria , site unspecified N39.0 [facility] [id number] [place] [address] 25124- 3998 Mar, UTI symptoms R39.9 [facility] [id number] [place] [address] 12546- 3721 Mar, [facility] [id number] [place] [address] 05683- 5781 Mar, Panic attacks F41.0 and Chronic pain G89.29 [facility] [address] 71042- 8597 Mar, [facility] [id number] [place] [address] 49215- 6960 Mar, Dysuria R30.0 [facility] [id number] [place] [address] 45123- 6568 Mar, Dysuria R30.0 [facility] [id number] [place] [address] 85992- 1532 Feb, Chronic pain G89.29 ; Shortness of breath R06.02 ; Weight loss R63.4 ; Encounter for immunization Z23 ; Bone pain M89.8X9 ; Right anterior knee pain M25.561 and Cough R05 [facility] [id number] [place] [address] 04293- 1226 Feb, Shortness of breath R06.02 [facility] [id number] [place] [address] 69058- 8788 Feb, [facility] [id number] [place] [address] 54705- 7263 Feb, Panic attacks F41.0 and Chronic pain G89.29 [facility] [address] 67819- 2410 Feb, [facility] [address] 10269- 1823 04 Feb, 2017 Panic attacks F41.0 ; Shortness of breath R06.02 and Encounter for immunization Z23 [facility] [address] 73260- 6782 Jan, [facility] [address] 29949- 1522 15 Jan, 2017 Anxiety F41.9 and Chronic pain G89.29 [facility] [address] 23338- 9084 Dec, Anxiety F41.9 and Chronic pain G89.29 [facility] [address] 51123- 6586 Nov, Chronic pain G89.29 [facility] [address] 48731- 1431 Nov, Anxiety F41.9 [facility] [address] 11659- 0382 Nov, Chronic pain G89.29 ; Essential hypertension I10 and Other emphysema J43.8 [facility] [id number] [place] [address] 68368- 1110 Oct, Anxiety F41.9 [facility] [address] 80865- 3565 Oct, [facility] [address] 80172- 8668 Oct, Chronic pain G89.29 [facility] [address] 92906- 2664 September, Recurrent UTI N39.0 ; Neuropathy G62.9 and Anxiety F41.9 [facility] [id number] [place] [address] 12102- 2449 September, [facility] [id number] [place] [address] 03458- 9596 September, Chronic pain G89.29 [facility] [id number] [place] [address] 65987- 6861 September, [facility] [address] 15927- 9084 Aug, Post-traumatic stress disorder, chronic F43.12 ; Chronic urinary tract infection N39.0 ; Gastroesophageal reflux disease without esophagitis K21.9 ; Chronic pain G89.29 ; Essential hypertension I10 and Tobacco abuse Z72.0 [facility] [id number] [place] [address] 46409 -8205 Aug, [facility] [address] 51141- 7372 Aug, Chronic pain G89.29 [facility] [address] 91104- 7357 Aug, Insomnia, unspecified type G47.00 [facility] [id number] [place] [address] 70782- 7163 Aug, [facility] [id number] [place] [address] 42319- 6576 Jul, Chronic pain G89.29 [facility] [id number] [place] [address] 72053- 4031 Jul, [facility] [address] 27777- 4988 Jul, [facility] [id number] [place] [address] 31784- 1109 Jul, [facility] [address] 07886- 2435 15 Jul, 2016 Recurrent UTI (urinary tract infection) N39.0 [facility] [id number] [place] [address] 29621- 7274 14 Jul, 2016 [facility] [id number] [place] [address] 60711- 3553 27 Jun, 2016 Chronic pain G89.29 [facility] [id number] [place] [address] 08994- 6650 17 Jun, 2016 [facility] [id number] [place] [address] 68755- 9316 Jun, [facility] [id number] [place] [address] 79583- 3343 May, Chronic pain G89.29 [facility] [id number] [place] [address] 03088- 4800 May, Weight loss R63.4 and Shortness of breath R06.02 [facility] [id number] [place] [address] 49493- 5701 May, Chronic pain G89.29 ; Weight loss R63.4 and Tobacco abuse Z72.0 [facility] [id number] [place] [address] 41199- 0220 May, [facility] [id number] [place] [address] 19914- 8802 May, Hypoxia R09.02 [facility] [id number] [place] [address] 84713- 3782 May, [facility] [id number] [place] [address] 57789- 3720 May, Pulmonary emphysema, unspecified emphysema type J43.9 [facility] [id number] [place] [address] 93324 -7122 May, [facility] [id number] [place] [address] 50877- 4426 May, [facility] [id number] [place] [address] 28395- 4910 May, [facility] [address] 61301- 0923 May, Chronic pain G89.29 ; Encounter for immunization Z23 ; Right anterior knee pain M25.561 and Cough R05 [facility] [address] 84853- 4811 Apr, Chronic pain G89.29 [facility] [id number] [place] [address] 40712- 6400 Apr, [facility] [address] 45526- 7164 Apr, Generalized anxiety disorder F41.1 and Depression, unspecified depression type F32.9 [facility] [address] 04225- 8019 Apr, Chronic pain G89.29 ; Hypokalemia E87.6 and Insomnia, unspecified type G47.00 [facility] [id number] [place] [address] 01565- 9686 Apr, [facility] [id number] [place] [address] 94581- 0608 Apr, Chronic pain G89.29 [facility] [id number] [place] [address] 07256- 2654 Apr, [facility] [id number] [place] [address] 20320- 4892 Mar, [facility] [id number] [place] [address] 26328- 0362 Mar, Insomnia, unspecified type G47.00 [facility] [id number] [place] [address] 93793- 1504 Mar, Chronic pain G89.29 [facility] [id number] [place] [address] 71093- 1510 Mar, [facility] [address], [place] [address]- 7442 Feb, [facility] [address], [place] [address]- 4277 Feb, [facility] [id number] [place] [address] 56812- 2342 Feb, [facility] [id number] [place] [address] 07258- 1772 Feb, [facility] [id number] [place] [address] 89177- 2465 Feb, [facility] [id number] [place] [address] 50445- 2312 29 Jan, 2016 [facility] [id number] [place] [address] 95852- 3426 26 Jan, 2015 [facility] [address], [place] [address]- 2299 20 Jan, 2015 [facility] [id number] [place] [address] 87632- 5849 13 Jan, 2015 [facility] [address], [place] [address]- 6191 12 Jan, 2016 [facility] [address] [place] [address] 43536- 7352 07 Jan, 2015 Chronic pain G89.29 [facility] [address], [place] [address]- 9253 Jan, 2015 Chronic pain G89.29 and Fibromyalgia M79.7 [facility] [address], [place] [address]- 9257 Dec, Depression, unspecified depression type F32.9 and Generalized anxiety disorder 300.02 [facility] [address], [place] [address]- 9353 Dec, Dysthymia F34.1 ; Insomnia, unspecified type G47.00 and Chronic pain G89.29 [facility] [address] [facility] [id number] [place] [address] 69461- 5903 Dec, Chronic pain G89.29 [facility] [id number] [place] [address] 39481 2546 Dec, Insomnia, unspecified type G47.00 [facility] [address] [facility] [id number] [place] [address] 71790 2545 Dec, Fibromyalgia M79.7 and Chronic pain G89.29 [facility] [id number] [place] [address] 88674- 7896 Dec, [facility] [id number] [place] [address] 87891 2546 Dec, [facility] [id number] [place] [address] 38018- 2245 Dec, [facility] [id number] [place] [address] 47282 2546 Dec, [facility] [id number] [place] [address] 76885- 8946 Dec, Chronic pain G89.29 [facility] [id number] [place] [address] 58327 2545 Dec, [facility] [id number] [place] [address] 81722 254 Dec, [facility] [id number] [place] [address] 76673 2546 Dec, [facility] [id number] [place] [address] 27090 2541 Dec, Chronic pain G89.29 and Dysthymia F34.1 [facility] [id number] [place] [address] 11320 254 Nov, [facility] [id number] [place] [address] 49275- 4590 Nov, Hypokalemia E87.6 and Chronic pain G89.29 [facility] [address] 59703- 7682 Nov, Back pain M54.9 and Pain in right knee M25.561 [facility] [address] 91732- 3756 Nov, [facility] [address] 47864- 6729 Nov, Chronic pain G89.29 [facility] [address] 18154- 1802 Nov, Chronic pain G89.29 ; Weight loss R63.4 ; Bone pain M89.8X9 and Insomnia, unspecified type G47.00 [facility] [address] 92787- 1660 Nov, Chronic pain G89.29 [facility] [address] 99857- 2160 Nov, Chronic pain G89.29 [facility] [address] 58012- 8509 30 Oct, 2015 Chronic pain G89.29 [facility] [id number] [place] [address] 76327- 2006 Oct, UTI symptoms R39.9 [facility] [id number] [place] [address] 74333- 4901 27 Oct, 2015 Chronic pain G89.29 [facility] [address] 35891- 7335 20 Oct, 2015 Chronic pain G89.29 [facility] [id number] [place] [address] 63707- 4498 13 Oct, 2015 Chronic pain G89.29 [facility] [address] 44322- 6724 Oct, Right upper quadrant abdominal pain R10.11 [facility] [address], [place] [address] Oct, Chronic pain G89.29 [facility] [id number], [place] [address] Oct, [facility] [id number] [place] [address] 52376- 4097 September, Chronic pain G89.29 [facility] [id number] [place] [address] 89557- 5872 September, Dysuria R30.0 and Urinary tract infection without hematuria , site unspecified N39.0 [facility] [id number] [place] [address] 16699- 5899 September, [facility] [address] [place] [id number] [place] [address] 94654- 1102 September, Dysuria R30.0 [facility] [id number] [place] [address] 37670- 2691 September, Chronic pain G89.29 [facility] [id number] [place] [address] 29422- 8679 September, Chronic pain G89.29 and Essential hypertension I10 [facility] [id number], [place] [address] September, [facility] [id number] [place] [address] 78616- 7018 September, [facility] [id number] [place] [address] 28167- 2973 September, [facility] [id number] [place] [address] 39344- 2780 Aug, UTI symptoms R39.9 [facility] [id number], [place] [address] Aug, Dysuria R30.0 [facility] [address], [place] [address] Aug, [facility] [address] [place] [id number] [place] [address] 44419- 0339 Aug, [facility] [address] [place] [id number] [place] [address] 59792- 5672 Aug, [facility] [address] [place] [place] [id number] [place] [address] 68475- 6931 Aug, Chronic pain G89.29 [facility] [address] [id number] [place] [address] 27748- 3215 Aug, Dysthymia F34.1 [facility] [address] [id number] [place] [address] 54889- 2579 Aug, Conjunctivitis, unspecified conjunctivitis type, unspecified laterality H10.9 [facility] [address] [place] [id number] [place] [address] 56199- 6371 Jul, Chronic pain G89.29 ; Back pain M54.9 ; Tobacco abuse Z72.0 and Weight decrease R63.4 [facility] [id number] [place] [address] [address]- 7785 Jul, [facility] [id number] [place] [address] 76627- 5719 Jul, [facility] [id number] [place] [address] 65029- 1346 24 Jul, 2015 Chronic pain G89.29 [facility] [address], [place] [address] 9097 Jul, [facility] [id number] [place] [address] 24097- 9166 Jul, [facility] [id number] [place] [address] 28932- 6210 Jul, [facility] [id number] [place] [address] 30119- 3241 17 Jul, 2015 [facility] [address], [place] [address]- 7084 17 Jul, 2015 Chronic pain G89.29 [facility] [address], [place] [address] 4311 16 Jul, 2015 Chronic pain G89.29 [facility] [id number] [place] [address] 40820- 2285 15 Jul, 2015 [facility] [id number] [place] [address] 79569- 5996 Jul, [facility] [id number] [place] [address] 68511- 8924 Jul, [facility] [id number] [place] [address] 85260- 7760 Jul, [facility] [id number] [place] [address] 90768- 4552 Jun, [facility] [id number] [place] [address] 93590- 3207 Jun, Depression, unspecified depression type F32.9 [facility] [id number] [place] [address] 61398- 0163 Jun, Pain in right knee M25.561 [facility] [id number] [place] [address] 23794- 4583 24 Jun, 2015 Chronic pain G89.29 ; Back pain M54.9 ; Bone pain M89.8X9 and Weight loss R63.4 [facility] [id number] [place] [address] 15668- 2614 Jun, [facility] [id number] [place] [address] 84618- 0729 May, [facility] [address], [place] [address]- 8959 May, UTI symptoms R39.9 ; Pain in right knee M25.561 ; Right low back pain, with sciatica presence unspecified M54.5 ; Right foot pain M79.671 ; Hypokalemia E87.6 and Screening, lipid Z13.220 [facility] [id number] [place] [address] 38688- 4267 May, [facility] [id number] [place] [address] 03583- 5852 May, [facility] [id number] [place] [address] 27163- 0830 Mar, [facility] [id number] [place] [address] 78551- 1137 Mar, [facility] [id number] [place] [address] 60679- 0453 Mar, Hypokalemia E87.6 [facility] [address] 24887- 5093 Mar, Pain in right leg M79.604 ; Encounter for immunization Z23 ; Pain in right knee M25.561 and Hypokalemia E87.6 [facility] [id number] [place] [address] 61282- 2653 Jan, [facility] [id number] [place] [address] 25063- 1618 Jan, [facility] [id number] [place] [address] 21279 254 Jan, Abdominal pain, generalized 789.07 [facility] [id number] [place] [address] 41233 2541 Jan, Abdominal pain, generalized 789.07 [facility] [id number] [place] [address] 75897- 1920 Dec, [facility] [id number] [place] [address] 39641- 3409 Dec, [facility] [address], [place] [address]- 5716 Dec, [facility] [id number] [place] [address] 82506- 2889 Nov, Hallux valgus 735.0 and Hammertoe 735.4 [facility] [address], [place] [address]- 3906 Nov, [facility] [id number] [place] [address] 29864- 1978 Nov, Hallux valgus 735.0 and Hammer toe 735.4 [facility] [id number] [place] [address] 82059- 1576 Oct, [facility] [id number] [place] [address] 69281- 1526 Oct, [facility] [id number] [place] [address] 93457- 0000 Oct, Pre-op evaluation V72.84 [facility] [address], [place] [address]- 3044 Oct, [facility] [id number] [place] [address] 49123- 8574 Oct, [facility] [address], [place] [address]- 4151 September, [facility] [address] [address] 2546 September, [facility] [id number] [address]- 2253 September, Hallux valgus (acquired) 735.0 and Other hammer toe ( acquired) 735.4 [facility] [address] [address]- 2546 Aug, [facility] [id number] [place] [address] 49037- 3093 Aug, [facility] [place] [facility] [address] [id number] [place] [address]- 7313 Jul, [facility] [place] [facility] [address] [id number] [place] [address]- 2078 Jul, [facility] [place] [facility] [address] [id number] [place] [address]- 1558 Jul, [facility] [place] [facility] [address] [id number] [place] [address]- 4101 Jul, [facility] [place] [facility] [address] [id number] [place] [address]- 6323 Jul, [facility] [place] [facility] [address] [id number] [place] [address]- 6625 Jul, [facility] [place] [facility] [address] [facility] [id number] [place] [address]- 4215 Jul, [facility] [place] [facility] [address] [id number] [place] [address]- 8196 Jul, [facility] [place] [facility] [address] [id number] [place] [address]- 6228 Jun, [facility] [place] [facility] [address] [facility] [id number] [place] [address]- 1817 Jun, [facility] [place] [facility] [address] [id number] [place] [address]- 9992 Jun, 2014 [facility] [place] [facility] [address] [id number] [place] [address]- 7316 Jun, [facility] [place] [facility] [address] [id number] [place] [address]- 4428 Jun, [facility] [place] [facility] [address] [id number] [place] [address]- 3702 Jun, [facility] [place] [facility] [address] [facility] [id number] [place] [address]- 8262 Jun, [facility] [place] [facility] [address] [id number] [place] [address]- 6679 Jun, [facility] [address] [id number] [place] [address]- 0666 Jun, [facility] [place] [facility] [address] [id number] [place] [address]- 3346 Jun, [facility] [place] [facility] [address] [id number] [place] [address]- 9811 May, [facility] [place] [facility] [address] [id number] [place] [address]- 5387 May, [facility] [place] [facility] [address] [id number] [place] [address]- 1732 May, [facility] [place] [facility] [address] [id number] [place] [address]- 9218 May, [facility] [place] [facility] [address] [id number] [place] [address]- 8658 May, [facility] [address] [id number] [place] [address]- 5071 May, [facility] [place] [facility] [address] [id number] [place] [address]- 9140 May, [facility] [place] [facility] [address] [id number] [place] [address]- 5781 May, [facility] [place] [facility] [address] [id number] [place] [address]- 4205 May, [facility] [place] [facility] [address] [id number] [place] [address]- 7277 May, [facility] [place] [facility] [address] [id number] [place] [address]- 9757 May, [facility] [place] [facility] [address] [id number] [place] [address]- 7786 May, [facility] [place] [facility] [address] [id number] [place] [address]- 8579 May, [facility] [place] [facility] [address] [id number] [place] [address]- 4911 May, [facility] [place] [facility] [address] [id number] [place] [address]- 7569 May, [facility] [place] [facility] [address] [id number] [place] [address]- 1032 May, [facility] [place] [facility] [address] [id number] [place] [address]- 5505 May, [facility] [place] [facility] [address] [id number] [place] [address]- 8856 May, [facility] [place] [facility] [address] [id number] [place] [address]- 9636 Apr, [facility] [place] [facility] [address] [id number] [place] [address]- 8584 Apr, [facility] [place] [facility] [address] [id number] [place] [address]- 5588 Apr, [facility] [place] [facility] [address] [id number] [place] [address]- 0445 Apr, [facility] [place] [facility] [address] [id number] [place] [address]- 2230 Apr, [facility] [place] [facility] [address] [id number] [place] [address]- 9726 Apr, [facility] [place] [facility] [address] [id number] [place] [address]- 8880 Apr, [facility] [place] [facility] [address] [id number] [place] [address]- 3170 Apr, [facility] [place] [facility] [address] [id number] [place] [address]- 6315 Apr, [facility] [place] [facility] [address] [id number] [place] [address]- 6057 Mar, [facility] [place] [facility] [address] [id number] [place] [address]- 7107 Mar, [facility] [place] [facility] [address] [id number] [place] [address]- 0688 Mar, [facility] [place] [facility] [address] [id number] [place] [address]- 3640 Mar, [facility] [place] [facility] [address] [id number] [place] [address]- 0633 Mar, [facility] [place] [facility] [address] [id number] [place] [address]- 5113 Feb, [facility] [place] [facility] [address] [id number] [place] [address]- 6330 Feb, [facility] [place] [facility] [address] [id number] [place] [address]- 8587 Feb, [facility] [place] [facility] [address] [id number] [place] [address]- 1907 Feb, [facility] [place] [facility] [address] [id number] [place] [address]- 5586 Feb, [facility] [place] [facility] [address] [id number] [place] [address]- 9761 Feb, [facility] [place] [facility] [address] [id number] [place] [address]- 3369 Feb, [facility] [place] [facility] [address] [id number] [place] [address]- 5151 Feb, [facility] [place] [facility] [address] [id number] [address]- 4262 Feb, [facility] [place] [facility] [address] [id number] 1873 Feb, [facility] [place] [facility] [address] [id number], [place] [address]- 9383 Feb, [facility] [place] [facility] [address] [id number] 1193 Feb, [facility] [place] [facility] [address] [id number] [place] [address]- 6775 07 Feb, 2013 [facility] [place] [facility] [address] [id number] [place] [address]- 7727 Feb, [facility] [place] [facility] [address] [id number] [place] [address]- 5089 Feb, 2013 [facility] [place] [facility] [address] [id number] [place] [address]- 2758 Feb, [facility] [place] [facility] [address] [id number] [place] [address]- 2375 Jan, 2013 [facility] [place] [facility] [address] [id number] [place] [address]- 7557 23 Jan, 2013 [facility] [place] [facility] [address] [id number] [place] [address]- 0196 20 Jan, 2014 [facility] [place] [facility] [address] [id number] [place] [address]- 3669 19 Jan, 2013 [facility] [place] [facility] [address] [id number] [place] [address]- 6874 11 Jan, 2014 [facility] [place] [facility] [address] [id number] [place] [address]- 7823 Jan, [facility] [place] [facility] [address] [id number] [place] [address]- 1131 Jan, [facility] [place] [facility] [address] [id number] [place] [address]- 0518 Jan, 2013 [facility] [place] [facility] [address] [id number] [place] [address]- 9810 Dec, [facility] [place] [facility] [address] [id number] [place] [address]- 6846 Dec, [facility] [place] [facility] [address] [id number] [place] [address]- 2083 Nov, [facility] [place] [facility] [address] [id number] [place] [address]- 4960 Nov, [facility] [place] [facility] [address] [id number] [place] [address]- 5127 Nov, [facility] [place] [facility] [address] [id number] [place] [address]- 6451 Nov, [facility] [place] [facility] [address] [id number] [place] [address]- 0088 Nov, [facility] [place] [facility] [address] [id number] [place] [address]- 9604 Nov, [facility] [place] [facility] [address] [id number] [place] [address]- 1518 Nov, [facility] [place] [facility] [address] [id number] [place] [address]- 1649 Nov, [facility] [place] [facility] [address] [id number] [place] [address]- 6882 Nov, [facility] [place] [facility] [address] [id number] [place] [address]- 2176 Oct, [facility] [place] [facility] [address] [id number] [place] [address]- 1955 Oct, [facility] [place] [facility] [address] [id number] [place] [address]- 6208 Oct, [facility] [place] [facility] [address] [id number] [place] [address]- 1554 Oct, [facility] [place] [facility] [address] [id number] [place] [address]- 1935 Oct, [facility] [place] [facility] [address] [id number] [place] [address]- 1849 Oct, [facility] [place] [facility] [address] [id number] [place] [address]- 3484 September, [facility] [place] [facility] [address] [id number] [place] [address]- 5036 September, [facility] [place] [facility] [address] [id number] [place] [address]- 8301 September, [facility] [address] [id number] [place] 5348 September, [facility] [address] [id number] [place] [address]- 8081 September, [facility] [address] [id number] [place] [address]- 8401 September, [facility] [address] [id number] [place] [address]- 3995 September, [facility] [address] [id number] [place] 2788 September, [facility] [address] [id number] [place] [address]- 8348 September, [facility] [address] [id number] [place] [address]- 7524 September, [facility] [address] [id number] [place] [address]- 3311 September, [facility] [address] [id number] [place] [address]- 9606 September, [facility] [address] [id number] [place] [address]- 5502 September, [facility] [address] [id number] [place] [address]- 6948 September, [facility] [address] [id number] [place] [address]- 6076 September, [facility] [place] [facility] [address] [id number] [place] 7082 September, [facility] [place] [facility] [address] [id number] [place] 2425 September, [facility] [address] [id number] [place] [address]- 1641 September, [facility] [place] [facility] [address] [id number] [place] [address]- 4145 September, [facility] [place] [facility] [address] [id number] [place] [address]- 8741 September, [facility] [place] [facility] [address] [id number] [place] [address]- 5565 Aug, [facility] [place] [facility] [address] [id number] [place] [address]- 4396 Aug, [facility] [place] [facility] [address] [id number] [place] [address]- 1125 Aug, [facility] [place] [facility] [address] [id number] [place] [address]- 7772 Aug, [facility] [place] [facility] [address] [id number] [place] [address]- 6945 Aug, [facility] [place] [facility] [address] [id number] [place] [address]- 4748 Aug, [facility] [place] [facility] [address] [id number] [place] [address]- 7665 Aug, [facility] [place] [facility] [address] [id number] [place] [address]- 4528 Aug, [facility] [place] [facility] [address] [id number] [place] [address]- 6131 Aug, [facility] [place] [facility] [address] [id number] [place] [address]- 8034 Aug, [facility] [place] [facility] [address] [id number] [place] [address]- 6117 Aug, [facility] [place] [facility] [address] [id number] [place] [address]- 5625 Aug, [facility] [place] [facility] [address] [id number] [place] [address]- 1075 Aug, [facility] [place] [facility] [address] [id number] [place] [address]- 2645 Aug, [facility] [place] [facility] [address] [id number] [place] [address]- 0779 Aug, [facility] [place] [facility] [address] [id number] [place] [address]- 7691 Jul, [facility] [place] [facility] [address] [id number] [place] [address]- 4546 Jul, [facility] [place] [facility] [address] [id number] [place] [address]- 4219 Jul, [facility] [place] [facility] [address] [id number] [place] [address]- 5250 Jul, [facility] [place] [facility] [address] [id number] [place] [address]- 3127 Jul, [facility] [place] [facility] [address] [id number] [place] [address]- 2849 Jul, [facility] [place] [facility] [address] [id number] [place] [address]- 6879 Jul, [facility] [place] [facility] [address] [id number] [place] [address]- 0032 Jul, [facility] [place] [facility] [address] [id number] [place] [address]- 7004 Jul, [facility] [place] [facility] [address] [id number] [place] [address] Jul, [facility] [place] [facility] [address] [id number] [place] [address] Jul, [facility] [place] [facility] [address] [id number] [place] [address] Jul, [facility] [place] [facility] [address] [id number] [place] [address] Jul, [facility] [place] [facility] [address] [id number] [place] [address] Jul, [facility] [place] [facility] [address] [id number] [place] [address] Jul, [facility] [place] [facility] [address] [id number] [place] [address] Jun, [facility] [place] [facility] [address] [id number] [place] [address] Jun, [facility] [place] [facility] [address] [id number] [place] [address]6 Jun, [facility] [place] [facility] [address] [id number] [place] [address] Jun, [facility] [place] [facility] [address] [id number] [place] [address] Jun, [facility] [place] [facility] [address] [id number] [place] [address] Jun, [facility] [place] [facility] [address] [id number] [place] [address] May, [facility] [place] [facility] [address] [id number] [place] [address]- [address] May, [facility] [place] [facility] [address] [id number] [place] [address] May, [facility] [place] [facility] [address] [id number] [place] [address] May, [facility] [place] [facility] [address] [id number] [place] [address] May, [facility] [place] [facility] [address] [id number] [place] [address] May, [facility] [place] [facility] [address] [id number] [place] [address] May, [facility] [place] [facility] [address] [id number] [place] [address] 47[address] May, [facility] [place] [facility] [address] [id number] [place] [address] May, [facility] [address] [id number] [place] [address] May, [facility] [place] [facility] [address] [id number] [place] [address]- 39[address] May, [facility] [place] [facility] [address] [id number] [place] [address] May, [facility] [place] [facility] [address] [id number] [place] [address] 1451 May, [facility] [place] [facility] [address] [id number] [place] [address]- [address]90 May, [facility] [place] [facility] [address] [id number] [place] [address]- [address] May, [facility] [place] [facility] [address] [id number] [place] [address] Apr, [facility] [place] [facility] [address] [id number] [place] [address] Apr, [facility] [place] [facility] [address] [id number] [place] [address] Apr, [facility] [place] [facility] [address] [id number] [place] [address] Apr, [facility] [place] [facility] [address] [id number] [place] [address] Apr, [facility] [place] [facility] [address] [id number] [place] [address] 6[address] Apr, [facility] [place] [facility] [address] [id number] [place] [address] 279[address] Apr, [facility] [place] [facility] [address] [id number] [place] [address] Apr, [facility] [place] [facility] [address] [id number] [place] [address] 1507 Apr, [facility] [place] [facility] [address] [id number] [place] [address] Apr, [facility] [address] [id number] [place] [address] Mar, [facility] [address] [id number] [place] [address] Mar, [facility] [address] [id number] [place] [address] Mar, [facility] [address] [id number] [place] [address]10 Mar, [facility] [address] [id number] [place] [address] Mar, [facility] [address] [id number] [place] [address]- [address] Mar, [facility] [address] [id number] [place] [address] Mar, [facility] [address] [id number] [place] [address] 2006 Mar, [facility] [address] [id number] [place] [address]- [address] Mar, [facility] [address] [id number] [place] [address] Mar, [facility] [address] [id number] [place] [address] Mar, [facility] [address] [id number] [place] [address]- [address]398 Mar, [facility] [place] [facility] [address] [id number] [place] [address]- [address] Mar, [facility] [place] [facility] [address] [id number] [place] [address]- 7714 Mar, [facility] [address] [id number] [place] [address]- [address] Mar, [facility] [place] [facility] [address] [id number] [place] [address]- [address] 18 Mar, 2013 [facility] [place] [facility] [address] [id number] [place] [address] Mar, [facility] [place] [facility] [address] [id number] [place] [address]- 4726 Mar, [facility] [place] [facility] [address] [id number] [place] [address]- [address] Mar, [facility] [place] [facility] [address] [id number] [place] [address]- 9947 Mar, [facility] [place] [facility] [address] [id number] [place] [address]- [address]99 Mar, [facility] [place] [facility] [address] [id number] [place] [address]- [address]148 Mar, [facility] [place] [facility] [address] [id number], [place] [address] Mar, [facility] [place] [facility] [address] [id number], [place] [address] Feb, [facility] [place] [facility] [address] [id number], [place] [address] 17[address] Feb, [facility] [place] [facility] [address] [id number], [place] [address] Feb, [facility] [place] [facility] [address] [id number], [place] [address] 16 Feb, 2013 [facility] [place] [facility] [address] [id number], [place] [address] 65[address] 15 Feb, 2013 [facility] [place] [facility] [address] [id number], [place] [address] Feb, [facility] [place] [facility] [address] [facility] [id number], [place] [address] 3[address] Feb, [facility] [place] [facility] [address] [id number], [place] [address] 9569 Feb, [facility] [address] [id number] [place] [address] 6739 Feb, [facility] [place] [facility] [address] [id number] [place] [address] 2289 Feb, [facility] [place] [facility] [address] [id number] [place] [address] 8112 30 Jan, 2013 [facility] [place] [facility] [address] [id number] [place] [address]- 4408 26 Jan, 2013 [facility] [place] [facility] [address] [id number] [place] [address]- 3316 24 Jan, 2013 [facility] [place] [facility] [address] [id number] [place] [address]- 7672 23 Jan, 2013 [facility] [place] [facility] [address] [id number] [place] [address]- 7212 17 Jan, 2013 [facility] [place] [facility] [address] [id number] [place] [address]- 5284 Dec, [facility] [place] [facility] [address] [id number] [place] [address]- 9180 Dec, [facility] [place] [facility] [address] [id number] [place] [address]- 2331 Dec, [facility] [place] [facility] [address] [id number] [place] [address]- 6340 15 Dec, 2012 [facility] [place] [facility] [address] [id number] [place] [address]- 4087 14 Dec, 2012 [facility] [place] [facility] [address] [id number] [place] [address]- 8390 Dec, [facility] [place] [facility] [address] [id number] [place] [address]- 3869 Dec, [facility] [place] [facility] [address] [id number] [place] [address]- 3333 Nov, [facility] [place] [facility] [address] [id number] [place] [address]- 2546 16 Nov, 2012 [facility] [address] [id number] [place] [address]- 0786 15 Nov, 2012 [facility] [place] [facility] [address] [id number] [place] [address]- 2546 05 Nov, 2012 [facility] [address] [id number] [place] [address]- 2546 Nov, [facility] [place] [facility] [address] [id number] [place] [address]- 1146 Oct, [facility] [address] [id number] [place] [address]- 9186 Oct, [facility] [place] [facility] [address] [id number] [place] [address]- 2546 Oct, [facility] [address] [id number] [place] [address]- 0386 September, [facility] [address] [id number] [place] [address]- 5664 September, [facility] [address] [id number] [place] [address]- 3026 September, [facility] [address] [id number] [place] [address]- 5566 September, [facility] [place] [facility] [address] [id number] [place] [address]- 5936 September, [facility] [address] [id number] [place] [address]- 2546 September, [facility] [place] [facility] [address] [id number] [place] [address]- 2546 September, [facility] [place] [facility] [address] [id number] [place] [address]- 2546 Aug, [facility] [place] [facility] [address] [id number] [place] [address]- 2532 23 Aug, 2012 [facility] [place] [facility] [address] [id number] [place] [address]- 1815 11 Aug, 2012 [facility] [place] [facility] [address] [id number] [place] [address]- 4946 29 Jul, 2012 [facility] [place] [facility] [address] [id number] [place] [address]- 9390 27 Jul, 2012 [facility] [place] [facility] [address] [id number] [place] [address]- 9538 26 Jul, 2012 [facility] [place] [facility] [address] [id number] [place] [address]- 0121 20 Jul, 2012 [facility] [place] [facility] [address] [id number] [place] [address]- 5010 18 Jul, 2012 [facility] [place] [facility] [address] [facility] [id number] [place] [address]- 1989 18 Jul, 2012 [facility] [place] [facility] [address] [id number] [place] [address]- 9118 13 Jul, 2012 [facility] [place] [facility] [address] [id number] [place] [address]- 4791 28 Jun, 2012 [facility] [place] [facility] [address] [facility] [id number] [place] [address]- 6269 27 Jun, 2012 [facility] [place] [facility] [address] [facility] [id number] [place] [address]- 1085 22 Jun, 2012 [facility] [place] [facility] [address] [id number] [place] [address]- 0023 20 Jun, 2012 [facility] [place] [facility] [address] [id number] [place] [address]- 1627 15 Jun, 2012 [facility] [place] [facility] [address] [id number] [place] [address]- 3757 15 Jun, 2012 [facility] [place] [facility] [address] [facility] [id number] [place] [address]- 4586 13 Jun, 2012 [facility] [place] [facility] [address] [id number] [place] [address]- 1286 Jun, [facility] [address] [id number] [place] [address]- 1896 Jun, [facility] [place] [facility] [address] [id number] [place] [address]- 2546 Jun, [facility] [address] [id number] [place] [address]- 2196 May, [facility] [place] [facility] [address] [id number] [place] [address] 2541 May, [facility] [address] [id number] [place] [address]- 1466 May, [facility] [address] [id number] [place] [address]- 0673 May, [facility] [address] [id number] [place] [address]- 8335 May, [facility] [address] [id number] [place] [address]- 1533 May, [facility] [address] [id number] [place] [address]- 3140 31 Apr, 2012 [facility] [address] [id number] [place] [address] 2546 31 Apr, 2012 [facility] [address] [id number] [place] [address] 2546 Apr, [facility] [place] [facility] [address] [id number] [place] [address] 2549 28 Apr, 2012 [facility] [place] [facility] [address] [id number] [place] [address] 2546 26 Apr, 2012 [facility] [place] [facility] [address] [id number] [place] [address]- 2546 20 Apr, [address] [facility] [place] [facility] [address] [id number] [place] [address]- 9229 Apr, [facility] [place] [facility] [address] [id number] [place] [address]- 3913 Mar, [facility] [place] [facility] [address] [id number] [place] [address]- 7424 Mar, [facility] [place] [facility] [address] [facility] [id number] [place] [address]- 7832 Mar, [facility] [place] [facility] [address] [id number] [place] [address]- 6346 Mar, [facility] [place] [facility] [address] [id number] [place] [address]- 8661 Mar, [facility] [place] [facility] [address] [id number], [place] [address]- 5090 Mar, [facility] [place] [facility] [address] [id number] [place] [address]- 9514 Mar, [facility] [place] [facility] [address] [id number], [place] [address]- 4702 Mar, [facility] [place] [facility] [address] [id number], [place] [address]- 6940 Mar, [facility] [place] [facility] [address] [id number], [place] [address]- 0376 Mar, [facility] [place] [facility] [address] [id number], [place] [address]- 9812 Mar, [facility] [place] [facility] [address] [id number], [place] [address]- 4674 Mar, [facility] [place] [facility] [address] [id number], [place] [address]- 3809 Mar, [facility] [place] [facility] [address] [facility] [id number], [place] [address]- 1788 Mar, [facility] [place] [facility] [address] [facility] [id number], [place] [address]- 1010 Mar, [facility] [place] [facility] [address] [id number] [place] [address]- 9726 Mar, [facility] [place] [facility] [address] [id number] [place] [address]- 1078 Mar, [facility] [place] [facility] [address] [id number] [place] [address]- 7590 Feb, [facility] [place] [facility] [address] [id number] [place] [address]- 7524 Feb, 2011 [facility] [place] [facility] [address] [id number] [place] [address]- 9430 Feb, [facility] [place] [facility] [address] [id number] [place] [address]- 5305 Feb, [facility] [place] [facility] [address] [id number] [place] [address]- 4989 Feb, [facility] [place] [facility] [address] [id number] [place] [address]- 9474 Feb, [facility] [place] [facility] [address] [id number] [place] [address]- 0258 Feb, [facility] [place] [facility] [address] [id number] [place] [address]- 4118 Feb, [facility] [place] [facility] [address] [facility] [id number] [place] [address]- 4457 Feb, [facility] [place] [facility] [address] [id number] [place] [address]- 3203 Feb, [facility] [place] [facility] [address] [id number] [place] [address]- 3402 Feb, [facility] [place] [facility] [address] [id number] [place] [address]- 0714 27 Jan, 2011 [facility] [place] [facility] [address] [id number] [place] [address]- 2916 25 Jan, 2012 [facility] [place] [facility] [address] [id number] [place] [address]- 8224 13 Jan, 2012 [facility] [place] [facility] [address] [id number] [place] [address]- 4879 12 Jan, 2012 [facility] [place] [facility] [address] [id number] [place] [address]- 0295 Jan, [facility] [place] [facility] [address] [id number] [place] [address]- 4530 Dec, [facility] [place] [facility] [address] [id number] [place] [address]- 1618 Dec, [facility] [place] [facility] [address] [id number] [place] [address]- 2858 Dec, [facility] [place] [facility] [address] [id number] [place] [address]- 5455 Dec, [facility] [place] [facility] [address] [id number] [place] [address]- 3994 Dec, [facility] [place] [facility] [address] [id number] [place] [address]- 9579 Dec, [facility] [place] [facility] [address] [id number] [place] [address]- 5385 Dec, [facility] [place] [facility] [address] [id number] [place] [address]- 5312 Dec, [facility] [place] [facility] [address] [id number] [place] [address]- 3352 Nov, [facility] [place] [facility] [address] [id number] [place] [address]- 7189 Nov, [facility] [place] [facility] [address] [id number] [place] [address]- 4257 Nov, [facility] [place] [facility] [address] [id number] [place] [address]- 4338 Nov, [facility] [place] [facility] [address] [id number] [place] [address]- 9541 Nov, [facility] [place] [facility] [address] [id number] [place] [address]- 7653 Oct, [facility] [address] [id number] [place] [address] Oct, [facility] [place] [facility] [address] [id number] [place] [address]- 1437 September, [facility] [address] [id number] [place] [address]- 2516 September, [facility] [place] [facility] [address] [id number] [place] [address]- 4426 September, [facility] [address] [id number] [place] [address]- 3411 September, [facility] [place] [facility] [address] [id number] [place] [address]- 7370 September, [facility] [address] [id number] [place] [address]- 8996 September, [facility] [place] [facility] [address] [id number] [place] [address]- 9962 September, [facility] [place] [facility] [address] [id number] [place] [address]- 9187 September, [facility] [place] [facility] [address] [id number] [place] [address]- 0228 September, [facility] [place] [facility] [address] [id number] [place] [address]- 7880 September, [facility] [place] [facility] [address] [id number] [place] [address]- 7880 September, [facility] [place] [facility] [address] [id number] [place] [address]- 0514 September, [facility] [place] [facility] [address] [id number] [place] [address]- 8326 September, [facility] [place] [facility] [address] [id number] [place] [address]- 2966 September, [facility] [place] [facility] [address] [id number] [place] [address]- 0621 24 Aug, 2011 [facility] [address] [id number] [place] [address]- 5856 20 Aug, 2011 [facility] [address] [id number] [place] [address]- 6816 13 Aug, 2011 [facility] [address] [id number] [place] [address]- 0560 11 Aug, 2011 [facility] [address] [id number] [place] [address]- 2959 23 Jul, 2011 [facility] [address] [id number] [place] [address]- 8216 13 Jul, 2011 [facility] [address] [id number] [place] [address]- 5579 13 Jul, 2011 [facility] [address] [id number] [place] [address]- 3692 28 Jun, [address] [facility] [address] [id number] [address] 26 Jun, 2011 [facility] [address] [id number] [place] [address]- 7525 13 Jun, 2011 [facility] [address] [id number] [place] [address]- 4407 10 Jun, 2011 [facility] [address] [id number] [place] [address]- 2416 07 Jun, 2011 [facility] [address] [id number] [place] [address]- 1986 07 Jun, 2011 [facility] [place] [facility] [address] [id number] [place] [address]- 5416 03 Jun, 2011 [facility] [place] [facility] [address] [id number] [place] [address]- 2476 02 Jun, 2011 [facility] [place] [facility] [address] [id number] [place] [address]- 8574 31 May, 2011 [facility] [address] [id number] [place] [address]- 8485 30 May, 2011 [facility] [address] [id number] [place] [address]- 8250 May, [facility] [address] [id number] [place] [address]- 6864 May, [facility] [address] [id number] [place] [address]- 5804 May, [facility] [address] [id number] [place] [address]- 7383 May, [facility] [address] [id number] [place] [address]- 4148 May, [facility] [address] [id number] [place] [address]- 8067 May, [facility] [place] [facility] [address] [id number] [place] [address]- 2834 May, [facility] [address] [id number] [place] [address]- 5626 May, [facility] [place] [facility] [address] [id number] [place] [address]- 6917 May, [facility] [address] [id number], [place] [address]- 4462 May, [facility] [place] [facility] [address] [id number], [place] [address]- 6734 May, [facility] [place] [facility] [address] [id number] [place] [address]- 1889 May, [facility] [place] [facility] [address] [id number] [place] [address]- 9394 30 Apr, 2011 [facility] [place] [facility] [address] [id number] [place] [address]- 6879 16 Apr, 2011 [facility] [place] [facility] [address] [id number] [place] [address]- 2949 05 Apr, 2011 [facility] [place] [facility] [address] [id number] [place] [address]- 4256 17 Mar, 2011 [facility] [place] [facility] [address] [id number] [place] [address] 2546 Mar, [facility] [place] [facility] [address] [id number] [place] [address]- 1236 31 Feb, 2011 [facility] [place] [facility] [address] [id number] [place] [address] 2546 26 Feb, 2011 [facility] [place] [facility] [address] [id number] [place] [address]- 1017 Feb, [facility] [place] [facility] [address] [id number] [place] [address]- 7767 20 Feb, 2011 [facility] [place] [facility] [address] [id number] [place] [address]- 1537 13 Feb, 2011 [facility] [place] [facility] [address] [id number] [place] [address]- 1718 28 Apr, 2010 [facility] [place] [facility] [address] [id number] [place] [address] 2546 22 Apr, 2010 [facility] [place] [facility] [address] [facility] [id number] [place] [address] 2548 16 Apr, 2010 [facility] [place] [facility] [address] [id number] [place] [address] 2546 15 Apr, 2010 [facility] [place] [facility] [address] [id number] [place] [address] 2546 15 Apr, 2010 [facility] [place] [facility] [address] [id number] [place] [address] 2546 Apr, [facility] [place] [facility] [address] [id number] [place] [address] 2546 24 Mar, 2010 [facility] [place] [facility] [address] [id number] [place] [address] 2542 17 Mar, 2010 [facility] [id number], [place] [address]- 7548 17 Mar, 2010 [facility] [address], [place] [address]- 3528 28 Feb, 2010 [facility] [address], [place] [address]- 2250 Feb, [facility] [id number] [place] [address]- 5428 Feb, [facility] [id number], [place] [address] Feb, [facility] [id number] [place] [address] Dec, [facility] [id number], [place] [address] Dec, [facility] [id number] [place] [address] Oct, [facility] [id number], [place] [address] Mar, [facility] [id number], [place] [address] Mar, [facility] [id number] [address] September, IMMUNIZATIONS No Known Immunizations SOCIAL HISTORY Never Assessed REASON FOR VISIT EMR-[facility] PLAN OF CARE VITAL SIGNS MEDICATIONS Unknown [...]
--- OUTSIDE RECORDS SUMMARY | 2018-09-19 09:20 | XMS REPORT ---
Author Author Migration, Doctor Organization [facility] Address Unknown Phone Unavailable Care Team Providers Care Permit Specialist Name Role Phone Migration, Doctor Unavailable Unavailable PROBLEMS Type Condition ICD9-CM Code DMG27-VN Code Onset Dates Condition Status SNOMED Code Problem Hypokalemia E87.6 Active 472622253 Problem Generalized anxiety disorder F41.1 Active 37300770 Problem Pain in right knee M25.561 Active 80965070 Problem Right low back pain, with sciatica presence unspecified M54.5 Active 729604320 Problem Right foot pain M79.671 Active 81572013 Problem UTI symptoms R39.9 Active 08482707 Problem Essential hypertension I10 Active 40493497 Problem Gastroesophageal reflux disease without esophagitis K21.9 Active 859159289 Problem Weight decrease R63.4 Active 518402270 Problem Depression, unspecified depression type F32.9 Active 03253921 Problem Right upper quadrant abdominal pain R10.11 Active 061536214 Problem Tobacco abuse Z72.0 Active 11191917 Problem Insomnia, unspecified type G47.00 Active 215188127 Problem Weight loss R63.4 Active 747591411 Problem Post-traumatic stress disorder, chronic F43.12 Active 73575010 Problem Pulmonary emphysema, unspecified emphysema type J43.9 Active 26455194 Problem Neuropathy G62.9 Active 735216556 Problem Anxiety F41.9 Active 85893925 Problem Other emphysema J43.8 Active 27454061 Problem Other chronic pain G89.29 Active 53062767 Problem Chronic pain G89.29 Active 77320218 Problem Opioid use disorder, moderate, dependence F11.20 Active 30987887 Problem Back pain M54.9 Active 981777521 Problem Bone pain M89.8X9 Active 83505519 Problem Panic attacks F41.0 Active 669788638 Problem Kidney stones N20.0 Active 62675677 Problem Renal calculus, right N20.0 Active 35225496 Problem Generalized abdominal pain R10.84 Active 228908552 ALLERGIES No Information ENCOUNTERS Encounter Location Date Diagnosis [facility] [address] [address] Feb, [facility] [id number] [place] [address] 67201- 3615 Dec, [facility] [id number] [place] [address] 80438- 2209 Dec, [facility] [id number] [place] [address] 79539- 7335 Dec, Medicare welcome exam Z00.00 [facility] [id number] [place] [address] 36810- 1301 17 Nov, 2017 Opioid use disorder, moderate, dependence F11.20 [facility] [id number] [place] [address] 41039- 9876 16 Nov, 2017 Pelvic pain R10.2 ; Acute pyelonephritis N10 and Essential hypertension I10 [facility] [id number] [place] [address] 99492- 0081 28 Oct, 2017 Medicare welcome exam Z00.00 [facility] [id number] [place] [address] 91613- 4476 Oct, Gross hematuria R31.0 ; Urinary tract infection without hematuria, site unspecified N39.0 and Weakness R53.1 [facility] [id number] [place] [address] 28994- 7418 Oct, [facility] [id number] [place] [address] 81143- 8119 Oct, [facility] [id number] [place] [address] 95893- 2486 Oct, Medicare welcome exam Z00.00 [facility] [id number] [place] [address] 49927- 9017 September, Back pain M54.9 and Right anterior knee pain M25.561 [facility] [id number] [place] [address] 03504- 0789 September, [facility] [address], [place] [address] 4242 September, [facility] [id number] [place] [address] 02125- 1056 September, Essential hypertension I10 [facility] [id number] [place] [address] 04582- 1900 September, [facility] [id number] [place] [address] 93451- 3946 September, RLQ abdominal pain R10.31 ; Low back pain M54.5 and Other chronic pain G89.29 [facility] [id number] [place] [address] 73924- 1756 Aug, Medicare welcome exam Z00.00 [facility] [id number] [place] [address] 53005- 7594 Aug, [facility] [id number] [place] [address] 90999- 7751 Aug, Acute pyelonephritis N10 and Medicare welcome exam Z00.00 [facility] [id number] [place] [address] 37651 -2330 Aug, Dysuria R30.0 and Acute pyelonephritis N10 [facility] [address] [address] 5116 Aug, [facility] [id number] [place] [address] 92187- 0887 Aug, [facility] [id number] [place] [address] 61673- 7157 Aug, [facility] [id number] [place] [address] 28556- 0875 Aug, [facility] [address], [place] [address]- 2308 Jul, [facility] [id number] [place] [address] 32650- 6500 Jul, Renal calculus, right N20.0 and Medicare welcome exam Z00.00 [facility] [id number] [place] [address] 46409 -4635 Jul, Dysuria R30.0 and Renal calculus, right N20.0 [facility] [id number] [place] [address] 57753- 8891 Jul, Medicare welcome exam Z00.00 [facility] [id number] [place] [address] 10961- 4644 Jun, Gastroesophageal reflux disease without esophagitis K21.9 and Generalized abdominal pain R10.84 [facility] [id number] [place] [address] 40469- 4574 Jun, Medicare welcome exam Z00.00 [facility] [id number] [place] [address] 12271- 9953 Jun, [facility] [id number] [place] [address] 73116- 8760 Jun, Medicare welcome exam Z00.00 and Encounter for screening mammogram for malignant neoplasm of breast Z12.31 [facility] [id number] [place] [address] 30617- 1960 Jun, Chronic pain G89.29 [facility] [id number] [place] [address] 56533- 6890 May, [facility] [id number] [place] [address] 97508- 1199 May, Pelvic pain R10.2 [facility] [id number] [place] [address] 58791- 9687 May, Pelvic pain R10.2 [facility] [id number] [place] [address] 43739 -8751 May, Renal calculus, right N20.0 [facility] [id number] [place] [address] 19930- 2510 May, Hematuria, unspecified type R31.9 and Nephrolithiasis N20.0 [facility] [id number] [place] [address] 31912 -4144 May, Dysuria R30.0 and Nephrolithiasis N20.0 [facility] [id number] [place] [address] 17412- 1558 May, [facility] [id number] [place] [address] 42775 -1575 May, Abdominal pain R10.9 and Kidney stone N20.0 [facility] [id number] [place] [address] 38352- 5033 May, [facility] [id number] [place] [address] 76745- 0846 May, Chronic pain G89.29 and Panic attacks F41.0 [facility] [id number] [place] [address] 69267- 3119 May, Urinary tract infection without hematuria, site unspecified N39.0 [facility] [id number] [place] [address] 59481- 2580 Apr, Right lower quadrant abdominal pain R10.31 and Abnormal serum lipase level R74.8 [facility] [id number] [place] [address] 04532- 9571 Apr, Recurrent urinary tract infection N39.0 [facility] [id number] [place] [address] 28721- 5029 Apr, UTI symptoms R39.9 ; Recurrent urinary tract infection N39.0 and Pelvic pain R10.2 [facility] [address] [place] [address] 58442- 7351 Apr, Chronic pain G89.29 and Panic attacks F41.0 [facility] [id number] [place] [address] 35522- 5124 Apr, Dysuria R30.0 [facility] [id number] [place] [address] 78250- 6129 Apr, [facility] [id number] [place] [address] 10262- 0507 Apr, Dysuria R30.0 and Urinary tract infection without hematuria , site unspecified N39.0 [facility] [id number] [place] [address] 78991- 2345 Mar, UTI symptoms R39.9 [facility] [id number] [place] [address] 39880- 0408 Mar, [facility] [id number] [place] [address] 59107- 3901 Mar, Panic attacks F41.0 and Chronic pain G89.29 [facility] [address] 88242- 4728 Mar, [facility] [id number] [place] [address] 62821- 0337 Mar, Dysuria R30.0 [facility] [id number] [place] [address] 73724- 9685 Mar, Dysuria R30.0 [facility] [id number] [place] [address] 88817- 3523 Feb, Chronic pain G89.29 ; Shortness of breath R06.02 ; Weight loss R63.4 ; Encounter for immunization Z23 ; Bone pain M89.8X9 ; Right anterior knee pain M25.561 and Cough R05 [facility] [id number] [place] [address] 90109- 8128 Feb, Shortness of breath R06.02 [facility] [id number] [place] [address] 72242- 2415 Feb, [facility] [id number] [place] [address] 81210- 0643 Feb, Panic attacks F41.0 and Chronic pain G89.29 [place] [address] 21272- 0313 Feb, [facility] [address] 46394- 5556 04 Feb, 2017 Panic attacks F41.0 ; Shortness of breath R06.02 and Encounter for immunization Z23 [place] [facility] [address] 12205- 5705 Jan, [facility] [address] 93469- 2058 15 Jan, 2017 Anxiety F41.9 and Chronic pain G89.29 [facility] [address] 13778- 8121 Dec, Anxiety F41.9 and Chronic pain G89.29 [facility] [address] 73098- 4803 Nov, Chronic pain G89.29 [place] [address] 93039- 6355 Nov, Anxiety F41.9 [facility] [address] 46580- 2465 Nov, Chronic pain G89.29 ; Essential hypertension I10 and Other emphysema J43.8 [facility] [id number] [place] [address] 08405- 2620 Oct, Anxiety F41.9 [place] [facility] [address] 10790- 1373 Oct, [facility] [address] 05940- 2596 Oct, Chronic pain G89.29 [place] [facility] [address] 75012- 4695 September, Recurrent UTI N39.0 ; Neuropathy G62.9 and Anxiety F41.9 [facility] [id number] [place] [address] 94413- 7227 September, [facility] [id number] [place] [address] 96815- 9142 September, Chronic pain G89.29 [facility] [id number] [place] [address] 73410- 8621 September, [facility] [address] 62329- 5784 Aug, Post-traumatic stress disorder, chronic F43.12 ; Chronic urinary tract infection N39.0 ; Gastroesophageal reflux disease without esophagitis K21.9 ; Chronic pain G89.29 ; Essential hypertension I10 and Tobacco abuse Z72.0 [facility] [id number] [place] [address] 56078 -0448 Aug, [facility] [address] 47962- 8540 Aug, Chronic pain G89.29 [facility] [address] 36019- 7602 Aug, Insomnia, unspecified type G47.00 [facility] [id number] [place] [address] 21484- 9865 Aug, [facility] [id number] [place] [address] 77578- 1946 Jul, Chronic pain G89.29 [facility] [id number] [place] [address] 03464- 1574 Jul, [facility] [address] 75148- 1362 Jul, [facility] [id number] [place] [address] 73494- 8038 Jul, [facility] [address] 04368- 0178 15 Jul, 2016 Recurrent UTI (urinary tract infection) N39.0 [facility] [id number] [place] [address] 66730- 6097 14 Jul, 2016 [facility] [id number] [place] [address] 18075- 8736 27 Jun, 2016 Chronic pain G89.29 [facility] [id number] [place] [address] 19331- 8548 17 Jun, 2016 [facility] [id number] [place] [address] 58170- 5887 Jun, [facility] [id number] [place] [address] 66146- 3849 May, Chronic pain G89.29 [facility] [id number] [place] [address] 93035- 5470 May, Weight loss R63.4 and Shortness of breath R06.02 [facility] [id number] [place] [address] 03090- 8389 May, Chronic pain G89.29 ; Weight loss R63.4 and Tobacco abuse Z72.0 [facility] [address] [place] [address] 00711- 9319 May, [facility] [address] [place] [address] 64891- 5197 May, Hypoxia R09.02 [facility] [id number] [place] [address] 79597- 6390 May, [facility] [id number] [place] [address] 21489- 6949 May, Pulmonary emphysema, unspecified emphysema type J43.9 [facility] [id number] [place] [address] 27824 -7067 May, [facility] [id number] [place] [address] 66515- 8270 May, [facility] [id number] [place] [address] 21523- 2368 May, [facility] [address] 65244- 7580 May, Chronic pain G89.29 ; Encounter for immunization Z23 ; Right anterior knee pain M25.561 and Cough R05 [facility] [address] 59716- 5817 Apr, Chronic pain G89.29 [facility] [id number] [place] [address] 04226- 4244 Apr, [facility] [address] 71982- 4735 Apr, Generalized anxiety disorder F41.1 and Depression, unspecified depression type F32.9 [facility] [address] 33794- 6846 Apr, Chronic pain G89.29 ; Hypokalemia E87.6 and Insomnia, unspecified type G47.00 [facility] [id number] [place] [address] 93867- 6179 Apr, [facility] [id number] [place] [address] 88441- 6312 Apr, Chronic pain G89.29 [facility] [id number] [place] [address] 74683- 2027 Apr, [facility] [id number] [place] [address] 91122- 4863 Mar, [facility] [id number] [place] [address] 81843- 1207 Mar, Insomnia, unspecified type G47.00 [facility] [id number] [place] [address] 16474- 9071 Mar, Chronic pain G89.29 [facility] [id number] [place] [address] 85849- 5006 Mar, [facility] [address] [address]- 8512 Feb, [facility] [address], [place] [address]- 8094 Feb, [facility] [id number] [place] [address] 03645- 5817 Feb, [facility] [id number] [place] [address] 80464- 6809 Feb, [facility] [id number] [place] [address] 36993- 1613 Feb, [facility] [id number] [place] [address] 39713- 9280 29 Jan, 2016 [facility] [id number] [place] [address] 52996- 6971 26 Jan, 2015 [facility] [address], [place] [address]- 8819 20 Jan, 2015 [facility] [id number] [place] [address] 54069- 2844 13 Jan, 2015 [facility] [address], [place] [address]- 1379 12 Jan, 2016 [facility] [address] [place] [address] 64475- 3064 07 Jan, 2015 Chronic pain G89.29 [facility] [address], [place] [address]- 1168 Jan, 2015 Chronic pain G89.29 and Fibromyalgia M79.7 [facility] [address], [place] [address]- 9645 Dec, Depression, unspecified depression type F32.9 and Generalized anxiety disorder 300.02 [facility] [address], [place] [address]- 3321 Dec, Dysthymia F34.1 ; Insomnia, unspecified type G47.00 and Chronic pain G89.29 [facility] [address] [facility] [id number] [place] [address] 86755- 8631 Dec, Chronic pain G89.29 [facility] [id number] [place] [address] 03349 2546 Dec, Insomnia, unspecified type G47.00 [facility] [address] [facility] [id number] [place] [address] 81889 2547 Dec, Fibromyalgia M79.7 and Chronic pain G89.29 [facility] [id number] [place] [address] 08063- 6046 Dec, [facility] [id number] [place] [address] 69163 2546 Dec, [facility] [id number] [place] [address] 66052- 7625 Dec, [facility] [id number] [place] [address] 27615 2546 Dec, [facility] [id number] [place] [address] 51462- 3889 Dec, Chronic pain G89.29 [facility] [id number] [place] [address] 36452 254 Dec, [facility] [id number] [place] [address] 15137 2545 Dec, [facility] [id number] [place] [address] 85737 2546 Dec, [facility] [id number] [place] [address] 39371 2548 Dec, Chronic pain G89.29 and Dysthymia F34.1 [facility] [id number] [place] [address] 30001 2545 Nov, [facility] [id number] [place] [address] 80920- 6441 Nov, Hypokalemia E87.6 and Chronic pain G89.29 [facility] [address] 46930- 2689 Nov, Back pain M54.9 and Pain in right knee M25.561 [place] [address] 32826- 6659 Nov, [facility] [address] 82902- 0868 Nov, Chronic pain G89.29 [facility] [address] 80822- 6943 Nov, Chronic pain G89.29 ; Weight loss R63.4 ; Bone pain M89.8X9 and Insomnia, unspecified type G47.00 [facility] [facility] [address] 56811- 5900 Nov, Chronic pain G89.29 [facility] [address] 38793- 9853 Nov, Chronic pain G89.29 [facility] [address] 17823- 9148 30 Oct, 2015 Chronic pain G89.29 [facility] [id number] [place] [address] 11978- 7644 Oct, UTI symptoms R39.9 [facility] [id number] [place] [address] 02013- 0138 27 Oct, 2015 Chronic pain G89.29 [facility] [address] 26008- 0108 20 Oct, 2015 Chronic pain G89.29 [facility] [id number] [place] [address] 77539- 9969 13 Oct, 2015 Chronic pain G89.29 [facility] [address] 90897- 8048 Oct, Right upper quadrant abdominal pain R10.11 [facility] [address] [address]- 3582 Oct, Chronic pain G89.29 [facility] [address] [address]- 5273 Oct, [facility] [id number] [place] [address] 91636- 8319 September, Chronic pain G89.29 [facility] [id number] [place] [address] 33076- 5992 September, Dysuria R30.0 and Urinary tract infection without hematuria , site unspecified N39.0 [facility] [id number] [place] [address] 39016- 0394 September, [facility] [id number] [place] [address] 79872- 7881 September, Dysuria R30.0 [facility] [id number] [place] [address] 51758- 3884 September, Chronic pain G89.29 [facility] [id number] [place] [address] 85374- 2318 September, Chronic pain G89.29 and Essential hypertension I10 [facility] [address] [address] September, [facility] [id number] [place] [address] 44397- 4663 September, [facility] [id number] [place] [address] 03721- 7463 September, [facility] [id number] [place] [address] 94228- 9826 Aug, UTI symptoms R39.9 [facility] [address] [address] Aug, Dysuria R30.0 [facility] [address] [address] 0[address] Aug, [facility] [id number] [place] [address] 11476- 1249 Aug, [facility] [id number] [place] [address] 91835- 9814 Aug, [facility] [id number] [place] [address] 80567- 8152 Aug, Chronic pain G89.29 [facility] [id number] [place] [address] 54600- 0846 Aug, Dysthymia F34.1 [facility] [id number] [place] [address] 96667- 9100 Aug, Conjunctivitis, unspecified conjunctivitis type, unspecified laterality H10.9 [facility] [id number] [place] [address] 59640- 3357 Jul, Chronic pain G89.29 ; Back pain M54.9 ; Tobacco abuse Z72.0 and Weight decrease R63.4 [facility] [id number] [place] [address] 76436- 9138 Jul, [facility] [id number] [place] [address] 85823- 0362 Jul, [facility] [id number] [place] [address] 55602- 1365 24 Jul, 2015 Chronic pain G89.29 [facility] [address] [address] Jul, [facility] [id number] [place] [address] 77359- 7856 Jul, [facility] [id number] [place] [address] 15531- 1247 Jul, [facility] [id number] [place] [address] 81237- 6563 17 Jul, 2015 [facility] [address] [address] 5764 17 Jul, 2015 Chronic pain G89.29 [facility] [address] [address] 9299 16 Jul, 2015 Chronic pain G89.29 [facility] [id number] [place] [address] 36707- 6064 15 Jul, 2015 [facility] [id number] [place] [address] 22777- 5033 Jul, [facility] [id number] [place] [address] 38335- 8743 Jul, [facility] [id number] [place] [address] 49833- 9043 Jul, [facility] [address] [id number] [place] [address] 88249- 4080 Jun, [facility] [id number] [place] [address] 78718- 9492 Jun, Depression, unspecified depression type F32.9 [facility] [id number] [place] [address] 48819- 8867 Jun, Pain in right knee M25.561 [facility] [id number] [place] [address] 70321- 9827 24 Jun, 2015 Chronic pain G89.29 ; Back pain M54.9 ; Bone pain M89.8X9 and Weight loss R63.4 [facility] [id number] [place] [address] 78884- 2292 Jun, [facility] [id number] [place] [address] 23629- 5594 May, [facility] [address] [address] 35[address] May, UTI symptoms R39.9 ; Pain in right knee M25.561 ; Right low back pain, with sciatica presence unspecified M54.5 ; Right foot pain M79.671 ; Hypokalemia E87.6 and Screening, lipid Z13.220 [facility] [id number] [place] [address] 47616- 3637 May, [facility] [id number] [place] [address] 59700- 5531 May, [facility] [id number] [place] [address] 89750- 3241 Mar, [facility] [id number] [place] [address] 73142- 3417 Mar, [facility] [id number] [place] [address] 54945- 3824 Mar, Hypokalemia E87.6 [facility] [address] 9[address]67- 8484 Mar, Pain in right leg M79.604 ; Encounter for immunization Z23 ; Pain in right knee M25.561 and Hypokalemia E87.6 [facility] [id number] [place] [address] 97587- 0783 Jan, [facility] [id number] [place] [address] 47802- 2483 Jan, [facility] [id number] [place] [address] 40588 2540 Jan, Abdominal pain, generalized 789.07 [facility] [id number] [place] [address] 22294 2549 Jan, Abdominal pain, generalized 789.07 [facility] [id number] [place] [address] 19415- 7415 Dec, [facility] [id number] [place] [address] 85758- 2807 Dec, [facility] [address] [address]- 2276 Dec, [facility] [id number] [place] [address] 86847- 6214 Nov, Hallux valgus 735.0 and Hammertoe 735.4 [facility] [address] [address]- 5286 Nov, [facility] [id number] [place] [address] 00813- 1834 Nov, Hallux valgus 735.0 and Hammer toe 735.4 [facility] [id number] [place] [address] 27415- 7976 Oct, [facility] [id number] [place] [address] 18991- 6486 Oct, [facility] [id number] [place] [address] 99915- 3509 Oct, Pre-op evaluation V72.84 [facility] [address] [address]- 0141 Oct, [facility] [id number] [place] [address] 18128- 3769 Oct, [facility] [address] [address]- 9423 September, [facility] [address] [address] 2546 September, [facility] [id number] [address]- 0685 September, Hallux valgus (acquired) 735.0 and Other hammer toe ( acquired) 735.4 [facility] [address] [address]- 2546 Aug, [facility] [id number] [place] [address] 13235- 6810 Aug, [facility] [place] [facility] [address] [id number] [place] [address]- 9119 Jul, [facility] [place] [facility] [address] [id number] [place] [address]- 7238 Jul, [facility] [place] [facility] [address] [id number] [place] [address]- 5490 Jul, [facility] [place] [facility] [address] [id number] [place] [address]- 7797 Jul, [facility] [place] [facility] [address] [id number] [place] [address]- 0092 Jul, [facility] [place] [facility] [address] [id number] [place] [address]- 8076 Jul, [facility] [place] [facility] [address] [facility] [id number] [place] [address]- 0122 Jul, [facility] [place] [facility] [address] [id number] [place] [address]- 2519 Jul, [facility] [place] [facility] [address] [id number] [place] [address]- 5778 Jun, [facility] [place] [facility] [address] [facility] [id number] [place] [address]- 8280 Jun, [facility] [place] [facility] [address] [id number] [place] [address]- 0920 Jun, 2014 [facility] [place] [facility] [address] [id number] [place] [address]- 2865 Jun, [facility] [place] [facility] [address] [id number] [place] [address]- 9897 Jun, [facility] [place] [facility] [address] [id number] [place] [address]- 1573 Jun, [facility] [place] [facility] [address] [facility] [id number] [place] [address]- 8462 Jun, [facility] [place] [facility] [address] [id number] [place] [address]- 6720 Jun, [facility] [address] [id number] [place] [address]- 4804 Jun, [facility] [place] [facility] [address] [id number] [place] [address]- 3276 Jun, [facility] [place] [facility] [address] [id number] [place] [address]- 3030 May, [facility] [place] [facility] [address] [id number] [place] [address]- 4357 May, [facility] [place] [facility] [address] [id number] [place] [address]- 5250 May, [facility] [place] [facility] [address] [id number] [place] [address]- 9398 May, [facility] [place] [facility] [address] [id number] [place] [address]- 6504 May, [facility] [address] [id number] [place] [address]- 8334 May, [facility] [place] [facility] [address] [id number] [place] [address]- 9862 May, [facility] [place] [facility] [address] [id number] [place] [address]- 4818 May, [facility] [place] [facility] [address] [id number] [place] [address]- 4864 May, [facility] [place] [facility] [address] [id number] [place] [address]- 0171 May, [facility] [place] [facility] [address] [id number] [place] [address]- 8745 May, [facility] [place] [facility] [address] [id number] [place] [address]- 6226 May, [facility] [place] [facility] [address] [id number] [place] [address]- 7889 May, [facility] [place] [facility] [address] [id number] [place] [address]- 7355 May, [facility] [place] [facility] [address] [id number] [place] [address]- 0202 May, [facility] [place] [facility] [address] [id number] [place] [address]- 9074 May, [facility] [place] [facility] [address] [id number] [place] [address]- 3369 May, [facility] [place] [facility] [address] [id number] [place] [address]- 0448 May, [facility] [place] [facility] [address] [id number] [place] [address]- 2353 Apr, [facility] [place] [facility] [address] [id number] [place] [address]- 8727 Apr, [facility] [place] [facility] [address] [id number] [place] [address]- 4012 Apr, [facility] [place] [facility] [address] [id number] [place] [address]- 4687 Apr, [facility] [place] [facility] [address] [id number] [place] [address]- 3347 Apr, [facility] [place] [facility] [address] [id number] [place] [address]- 4615 Apr, [facility] [place] [facility] [address] [id number] [place] [address]- 4006 Apr, [facility] [place] [facility] [address] [id number] [place] [address]- 9168 Apr, [facility] [place] [facility] [address] [id number] [place] [address]- 2373 Apr, [facility] [place] [facility] [address] [id number] [place] [address]- 4539 Mar, [facility] [place] [facility] [address] [id number] [place] [address]- 4491 Mar, [facility] [place] [facility] [address] [id number] [place] [address]- 0507 Mar, [facility] [place] [facility] [address] [id number] [place] [address]- 8729 Mar, [facility] [place] [facility] [address] [id number] [place] [address]- 3828 Mar, [facility] [place] [facility] [address] [id number] [place] [address]- 1157 Feb, [facility] [place] [facility] [address] [id number] [place] [address]- 6916 Feb, [facility] [place] [facility] [address] [id number] [place] [address]- 5468 Feb, [facility] [place] [facility] [address] [id number] [place] [address]- 9317 Feb, [facility] [place] [facility] [address] [id number] [place] [address]- 8342 Feb, [facility] [place] [facility] [address] [id number] [place] [address]- 0491 Feb, [facility] [place] [facility] [address] [id number] [place] [address]- 1973 Feb, [facility] [place] [facility] [address] [id number] [place] [address]- 6214 Feb, [facility] [place] [facility] [address] [id number] [address]- 5034 Feb, [facility] [place] [facility] [address] [id number] 7090 Feb, [facility] [place] [facility] [address] [id number], [place] [address]- 2518 Feb, [facility] [place] [facility] [address] [id number] 5953 Feb, [facility] [place] [facility] [address] [id number] [place] [address]- 8597 07 Feb, 2013 [facility] [place] [facility] [address] [id number] [place] [address]- 3592 Feb, [facility] [place] [facility] [address] [id number] [place] [address]- 9806 Feb, 2013 [facility] [place] [facility] [address] [id number] [place] [address]- 8565 Feb, [facility] [place] [facility] [address] [id number] [place] [address]- 8141 Jan, 2013 [facility] [place] [facility] [address] [id number] [place] [address]- 5621 23 Jan, 2013 [facility] [place] [facility] [address] [id number] [place] [address]- 9263 20 Jan, 2014 [facility] [place] [facility] [address] [id number] [place] [address]- 4728 19 Jan, 2013 [facility] [place] [facility] [address] [id number] [place] [address]- 7022 11 Jan, 2014 [facility] [place] [facility] [address] [id number] [place] [address]- 2151 Jan, [facility] [place] [facility] [address] [id number] [place] [address]- 0254 Jan, [facility] [place] [facility] [address] [id number] [place] [address]- 1598 Jan, 2013 [facility] [place] [facility] [address] [id number] [place] [address]- 2940 Dec, [facility] [place] [facility] [address] [id number] [place] [address]- 4316 Dec, [facility] [place] [facility] [address] [id number] [place] [address]- 3369 Nov, [facility] [place] [facility] [address] [id number] [place] [address]- 7934 Nov, [facility] [place] [facility] [address] [id number] [place] [address]- 1052 Nov, [facility] [place] [facility] [address] [id number] [place] [address]- 4969 Nov, [facility] [place] [facility] [address] [id number] [place] [address]- 8829 Nov, [facility] [place] [facility] [address] [id number] [place] [address]- 1419 Nov, [facility] [place] [facility] [address] [id number] [place] [address]- 7158 Nov, [facility] [place] [facility] [address] [id number] [place] [address]- 4839 Nov, [facility] [place] [facility] [address] [id number] [place] [address]- 6304 Nov, [facility] [place] [facility] [address] [id number] [place] [address]- 3215 Oct, [facility] [place] [facility] [address] [id number] [place] [address]- 9165 Oct, [facility] [place] [facility] [address] [id number] [place] [address]- 3238 Oct, [facility] [place] [facility] [address] [id number] [place] [address]- 8932 Oct, [facility] [place] [facility] [address] [id number] [place] [address]- 0672 Oct, [facility] [place] [facility] [address] [id number] [place] [address]- 4926 Oct, [facility] [place] [facility] [address] [id number] [place] [address]- 1969 September, [facility] [place] [facility] [address] [id number] [place] [address]- 1024 September, [facility] [place] [facility] [address] [id number] [place] [address]- 4134 September, [facility] [address] [id number] [place] 6263 September, [facility] [address] [id number] [place] [address]- 9176 September, [facility] [address] [id number] [place] [address]- 2747 September, [facility] [address] [id number] [place] [address]- 0523 September, [facility] [address] [id number] [place] 3695 September, [facility] [address] [id number] [place] [address]- 8854 September, [facility] [address] [id number] [place] [address]- 5435 September, [facility] [address] [id number] [place] [address]- 6868 September, [facility] [address] [id number] [place] [address]- 9968 September, [facility] [address] [id number] [place] [address]- 5061 September, [facility] [address] [id number] [place] [address]- 5244 September, [facility] [address] [id number] [place] [address]- 8924 September, [facility] [place] [facility] [address] [id number] [place] 4294 September, [facility] [place] [facility] [address] [id number] [place] 3644 September, [facility] [address] [id number] [place] [address]- 1305 September, [facility] [place] [facility] [address] [id number] [place] [address]- 6200 September, [facility] [place] [facility] [address] [id number] [place] [address]- 1629 September, [facility] [place] [facility] [address] [id number] [place] [address]- 9198 Aug, [facility] [place] [facility] [address] [id number] [place] [address]- 6949 Aug, [facility] [place] [facility] [address] [id number] [place] [address]- 5903 Aug, [facility] [place] [facility] [address] [id number] [place] [address]- 9584 Aug, [facility] [place] [facility] [address] [id number] [place] [address]- 0443 Aug, [facility] [place] [facility] [address] [id number] [place] [address]- 5020 Aug, [facility] [place] [facility] [address] [id number] [place] [address]- 7656 Aug, [facility] [place] [facility] [address] [id number] [place] [address]- 1135 Aug, [facility] [place] [facility] [address] [id number] [place] [address]- 0076 Aug, [facility] [place] [facility] [address] [id number] [place] [address]- 9037 Aug, [facility] [place] [facility] [address] [id number] [place] [address]- 9393 Aug, [facility] [place] [facility] [address] [id number] [place] [address]- 1632 Aug, [facility] [place] [facility] [address] [id number] [place] [address]- 7175 Aug, [facility] [place] [facility] [address] [id number] [place] [address]- 5557 Aug, [facility] [place] [facility] [address] [id number] [place] [address]- 9856 Aug, [facility] [place] [facility] [address] [id number] [place] [address]- 8850 Jul, [facility] [place] [facility] [address] [id number] [place] [address]- 9494 Jul, [facility] [place] [facility] [address] [id number] [place] [address]- 9584 Jul, [facility] [place] [facility] [address] [id number] [place] [address]- 2355 Jul, [facility] [place] [facility] [address] [id number] [place] [address]- 2071 Jul, [facility] [place] [facility] [address] [id number] [place] [address]- 8336 Jul, [facility] [place] [facility] [address] [id number] [place] [address]- 1060 Jul, [facility] [place] [facility] [address] [id number] [place] [address]- 8922 Jul, [facility] [place] [facility] [address] [id number] [place] [address]- 7748 Jul, [facility] [place] [facility] [address] [id number] [place] [address]- 7457 Jul, [facility] [place] [facility] [address] [id number] [place] [address]- 1016 Jul, [facility] [place] [facility] [address] [id number] [place] [address]- 4445 Jul, [facility] [place] [facility] [address] [id number] [place] [address]- 0509 Jul, [facility] [place] [facility] [address] [id number] [place] [address]- 0742 Jul, [facility] [place] [facility] [address] [id number] [place] [address]- 5531 Jul, [facility] [place] [facility] [address] [id number] [place] [address]- 6982 Jun, [facility] [place] [facility] [address] [id number] [place] [address]- 0186 Jun, [facility] [place] [facility] [address] [id number] [place] [address]- 5436 Jun, [facility] [place] [facility] [address] [id number] [place] [address]- 2034 Jun, [facility] [place] [facility] [address] [id number] [place] [address]- 7969 Jun, [facility] [place] [facility] [address] [id number] [place] [address]- 1068 Jun, [facility] [place] [facility] [address] [id number] [place] [address]- 7067 May, [facility] [place] [facility] [address] [id number] [place] [address]- 9414 May, [facility] [place] [facility] [address] [id number] [place] [address]- 8574 May, [facility] [place] [facility] [address] [id number] [place] [address]- 7001 May, [facility] [place] [facility] [address] [id number] [place] [address]- 3181 May, [facility] [place] [facility] [address] [id number] [place] [address]- 5658 May, [facility] [place] [facility] [address] [id number] [place] [address]- 9979 May, [facility] [place] [facility] [address] [id number] [place] [address]- 2766 May, [facility] [place] [facility] [address] [id number] [place] [address]- 5720 May, [facility] [address] [id number] [place] [address]- 7452 May, [facility] [place] [facility] [address] [id number] [place] [address] May, [facility] [place] [facility] [address] [id number] [place] [address] May, [facility] [place] [facility] [address] [id number] [place] [address] May, [facility] [place] [facility] [address] [id number] [place] [address] May, [facility] [place] [facility] [address] [id number] [place] [address] May, [facility] [place] [facility] [address] [id number] [place] [address] Apr, [facility] [place] [facility] [address] [id number] [place] [address] Apr, [facility] [place] [facility] [address] [id number] [place] [address] Apr, [facility] [place] [facility] [address] [id number] [place] [address] Apr, [facility] [place] [facility] [address] [id number] [place] [address] Apr, [facility] [place] [facility] [address] [id number] [place] [address] Apr, [facility] [place] [facility] [address] [id number] [place] [address] Apr, [facility] [place] [facility] [address] [id number] [place] [address] Apr, [facility] [place] [facility] [address] [id number] [place] [address] Apr, [facility] [place] [facility] [address] [id number] [place] [address] Apr, [facility] [address] [id number] [place] [address] Mar, [facility] [address] [id number] [place] [address] Mar, [facility] [address] [id number] [place] [address] 95[address] Mar, [facility] [address] [id number] [place] [address] Mar, [facility] [address] [id number] [place] [address] Mar, [facility] [address] [id number] [place] [address] Mar, [facility] [address] [id number] [place] [address] Mar, [facility] [address] [id number] [place] [address] Mar, [facility] [address] [id number] [place] [address] Mar, [facility] [address] [id number] [place] [address] Mar, [facility] [address] [id number] [place] [address] Mar, [facility] [address] [id number] [place] [address] Mar, [facility] [place] [facility] [address] [id number] [place] [address] Mar, [facility] [place] [facility] [address] [id number] [place] [address] Mar, [facility] [address] [id number] [place] [address] Mar, [facility] [place] [facility] [address] [id number] [place] [address] 18 Mar, 2013 [facility] [place] [facility] [address] [id number] [place] [address] Mar, [facility] [place] [facility] [address] [id number] [place] [address] Mar, [facility] [place] [facility] [address] [id number] [place] [address] Mar, [facility] [place] [facility] [address] [id number] [place] [address] Mar, [facility] [place] [facility] [address] [id number] [place] [address]- [address] Mar, [facility] [place] [facility] [address] [id number] [place] [address] Mar, [facility] [place] [facility] [address] [id number], [place] [address] Mar, [facility] [place] [facility] [address] [id number], [place] [address] Feb, [facility] [place] [facility] [address] [id number], [place] [address] Feb, [facility] [place] [facility] [address] [id number], [place] [address] Feb, [facility] [place] [facility] [address] [id number], [place] [address] 16 Feb, 2013 [facility] [place] [facility] [address] [id number], [place] [address] 15 Feb, 2013 [facility] [place] [facility] [address] [id number], [place] [address] Feb, [facility] [place] [facility] [address] [facility] [id number], [place] [address] Feb, [facility] [place] [facility] [address] [id number], [place] [address] Feb, [facility] [address] [id number] [place] [address] Feb, [facility] [place] [facility] [address] [id number] [place] [address] Feb, [facility] [place] [facility] [address] [id number] [place] [address] 30 Jan, 2013 [facility] [place] [facility] [address] [id number] [place] [address]- [address]65 26 Jan, 2013 [facility] [place] [facility] [address] [id number] [place] [address] 24 Jan, 2013 [facility] [place] [facility] [address] [id number] [place] [address]- [address]26 23 Jan, 2013 [facility] [place] [facility] [address] [id number] [place] [address] 17 Jan, 2013 [facility] [place] [facility] [address] [id number] [place] [address] 39[address] Dec, [facility] [place] [facility] [address] [id number] [place] [address] Dec, [facility] [place] [facility] [address] [id number] [place] [address] Dec, [facility] [place] [facility] [address] [id number] [place] [address]- [address]15 15 Dec, 2012 [facility] [place] [facility] [address] [id number] [place] [address] 14 Dec, 2012 [facility] [place] [facility] [address] [id number] [place] [address]183 Dec, [facility] [place] [facility] [address] [id number] [place] [address] 7749 Dec, [facility] [place] [facility] [address] [id number] [place] [address] Nov, [facility] [place] [facility] [address] [id number] [place] [address]- [address] 16 Nov, 2012 [facility] [address] [id number] [place] [address]- 58[address] 15 Nov, 2012 [facility] [place] [facility] [address] [id number] [place] [address]- [address] 05 Nov, 2012 [facility] [address] [id number] [place] [address]- [address] Nov, [facility] [place] [facility] [address] [id number] [place] [address] Oct, [facility] [address] [id number] [place] [address] Oct, [facility] [place] [facility] [address] [id number] [place] [address]- [address] Oct, [facility] [address] [id number] [place] [address] September, [facility] [address] [id number] [place] [address] 133[address] September, [facility] [address] [id number] [place] [address] September, [facility] [address] [id number] [place] [address] September, [facility] [place] [facility] [address] [id number] [place] [address] 8[address] September, [facility] [address] [id number] [place] [address] September, [facility] [place] [facility] [address] [id number] [place] [address] September, [facility] [place] [facility] [address] [id number] [place] [address] Aug, [facility] [place] [facility] [address] [id number] [place] [address] 2535 23 Aug, 2012 [facility] [place] [facility] [address] [id number] [place] [address] 3683 11 Aug, 2012 [facility] [place] [facility] [address] [id number] [place] [address] 8751 29 Jul, 2012 [facility] [place] [facility] [address] [id number] [place] [address]- 5133 27 Jul, 2012 [facility] [place] [facility] [address] [id number] [place] [address] 6678 26 Jul, 2012 [facility] [place] [facility] [address] [id number] [place] [address]- 4159 20 Jul, 2012 [facility] [place] [facility] [address] [id number] [place] [address] 1979 18 Jul, 2012 [facility] [place] [facility] [address] [facility] [id number] [place] [address] 6466 18 Jul, 2012 [facility] [place] [facility] [address] [id number] [place] [address]- 6168 13 Jul, 2012 [facility] [place] [facility] [address] [id number] [place] [address]- 9216 28 Jun, 2012 [facility] [place] [facility] [address] [facility] [id number] [place] [address] 5005 27 Jun, 2012 [facility] [place] [facility] [address] [facility] [id number] [place] [address]- 6904 22 Jun, 2012 [facility] [place] [facility] [address] [id number] [place] [address]- 0121 20 Jun, 2012 [facility] [place] [facility] [address] [id number] [place] [address]- 0501 15 Jun, 2012 [facility] [place] [facility] [address] [id number] [place] [address]- 3493 15 Jun, 2012 [facility] [place] [facility] [address] [facility] [id number] [place] [address]- 8992 13 Jun, 2012 [facility] [place] [facility] [address] [id number] [place] [address]- 2346 Jun, [facility] [address] [id number] [place] [address] Jun, [facility] [place] [facility] [address] [id number] [place] [address] 2546 Jun, [facility] [address] [id number] [place] [address] 8936 May, [facility] [place] [facility] [address] [id number] [place] [address] 2547 May, [facility] [address] [id number] [place] [address] 4476 May, [facility] [address] [id number] [place] [address] 3606 May, [facility] [address] [id number] [place] [address] 6914 May, [facility] [address] [id number] [place] [address]- 6666 May, [facility] [address] [id number] [place] [address]- 0123 31 Apr, 2012 [facility] [address] [id number] [place] [address] 2546 31 Apr, 2012 [facility] [address] [id number] [place] [address] 2546 Apr, [facility] [place] [facility] [address] [id number] [place] [address] 2548 28 Apr, 2012 [facility] [place] [facility] [address] [id number] [place] [address] 2546 26 Apr, 2012 [facility] [place] [facility] [address] [id number] [place] [address]- 2546 20 Apr, 2012 [facility] [place] [facility] [address] [id number] [place] [address] 7[address] Apr, [facility] [place] [facility] [address] [id number] [place] [address]- 9028 Mar, [facility] [place] [facility] [address] [id number] [place] [address]- 3431 Mar, [facility] [place] [facility] [address] [facility] [id number] [place] [address]- 1144 Mar, [facility] [place] [facility] [address] [id number] [place] [address]- 0910 Mar, [facility] [place] [facility] [address] [id number] [place] [address]- 2222 Mar, [facility] [place] [facility] [address] [id number] [address]- 0[address] Mar, [facility] [place] [facility] [address] [id number] [place] [address]- 0202 Mar, [facility] [place] [facility] [address] [id number], [place] [address] 36[address] Mar, [facility] [place] [facility] [address] [id number], [place] [address] 7475 Mar, [facility] [place] [facility] [address] [id number], [place] [address]- 4806 Mar, [facility] [place] [facility] [address] [id number], [place] [address]- 8370 Mar, [facility] [place] [facility] [address] [id number], [place] [address]- 8732 Mar, [facility] [place] [facility] [address] [id number], [place] [address]- 2181 Mar, [facility] [place] [facility] [address] [facility] [id number], [place] [address] 2917 Mar, [facility] [place] [facility] [address] [facility] [id number], [place] [address]- 5802 Mar, [facility] [place] [facility] [address] [id number] [place] [address]- 8484 Mar, [facility] [place] [facility] [address] [id number] [place] [address] 7919 Mar, [facility] [place] [facility] [address] [id number] [place] [address]- 2902 Feb, [facility] [place] [facility] [address] [id number] [place] [address]- 2079 Feb, 2011 [facility] [place] [facility] [address] [id number] [place] [address]- 5533 Feb, [facility] [place] [facility] [address] [id number] [place] [address]- 8338 Feb, [facility] [place] [facility] [address] [id number] [place] [address]- 0294 Feb, [facility] [place] [facility] [address] [id number] [place] [address]- 5266 Feb, [facility] [place] [facility] [address] [id number] [place] [address]- 9584 Feb, [facility] [place] [facility] [address] [id number] [place] [address]- 6132 Feb, [facility] [place] [facility] [address] [facility] [id number] [place] [address]- 1027 Feb, [facility] [place] [facility] [address] [id number] [place] [address]- 3529 Feb, [facility] [place] [facility] [address] [id number] [place] [address]- 0571 Feb, [facility] [place] [facility] [address] [id number] [place] [address]- 3400 27 Jan, 2011 [facility] [place] [facility] [address] [id number] [place] [address]- 9136 25 Jan, 2012 [facility] [place] [facility] [address] [id number] [place] [address]- 8358 13 Jan, 2012 [facility] [place] [facility] [address] [id number] [place] [address]- 6257 12 Jan, 2012 [facility] [place] [facility] [address] [id number] [place] [address] 1965 Jan, [facility] [place] [facility] [address] [id number] [place] [address]- 9122 Dec, [facility] [place] [facility] [address] [id number] [place] [address]- 6817 Dec, [facility] [place] [facility] [address] [id number] [place] [address]- 2337 Dec, [facility] [place] [facility] [address] [id number] [place] [address]- 4449 Dec, [facility] [place] [facility] [address] [id number] [place] [address]- 6465 Dec, [facility] [place] [facility] [address] [id number] [place] [address]- 7634 Dec, [facility] [place] [facility] [address] [id number] [place] [address]- 6492 Dec, [facility] [place] [facility] [address] [id number] [place] [address]- 7850 Dec, [facility] [place] [facility] [address] [id number] [place] [address]- 2564 Nov, [facility] [place] [facility] [address] [id number] [place] [address]- 3533 Nov, [facility] [place] [facility] [address] [id number] [place] [address]- 0300 Nov, [facility] [place] [facility] [address] [id number] [place] [address]- 1917 Nov, [facility] [place] [facility] [address] [id number] [place] [address]- 2361 Nov, [facility] [place] [facility] [address] [id number] [place] [address]- 0385 Oct, [facility] [address] [id number] [place] [address] Oct, [facility] [place] [facility] [address] [id number] [place] [address]- 2782 September, [facility] [address] [id number] [place] [address]- 6316 September, [facility] [place] [facility] [address] [id number] [place] [address]- 6832 September, [facility] [address] [id number] [place] [address]- 7257 September, [facility] [place] [facility] [address] [id number] [place] [address]- 9616 September, [facility] [address] [id number] [place] [address]- 7508 September, [facility] [place] [facility] [address] [id number] [place] [address]- 7733 September, [facility] [place] [facility] [address] [id number] [place] [address]- 1270 September, [facility] [place] [facility] [address] [id number] [place] [address]- 8379 September, [facility] [place] [facility] [address] [id number] [place] [address]- 7468 September, [facility] [place] [facility] [address] [id number] [place] [address]- 5757 September, [facility] [place] [facility] [address] [id number] [place] [address]- 1196 September, [facility] [place] [facility] [address] [id number] [place] [address]- 0181 September, [facility] [place] [facility] [address] [id number] [place] [address]- 5148 September, [facility] [place] [facility] [address] [id number] [place] [address]- 9661 24 Aug, 2011 [facility] [address] [id number] [place] [address]- 7154 20 Aug, 2011 [facility] [address] [id number] [place] [address]- 0406 13 Aug, 2011 [facility] [address] [id number] [place] [address]- 9793 11 Aug, 2011 [facility] [address] [id number] [place] [address]- 9351 23 Jul, 2011 [facility] [address] [id number] [place] [address]- 7025 13 Jul, 2011 [facility] [address] [id number] [place] [address]- 2336 13 Jul, 2011 [facility] [address] [id number] [place] [address]- 7548 28 Jun, [address] [facility] [address] [id number] [id number] 26 Jun, 2011 [facility] [address] [id number] [place] [address]- 9644 13 Jun, 2011 [facility] [address] [id number] [place] [address]- 9163 10 Jun, 2011 [facility] [address] [id number] [place] [address]- 4506 07 Jun, 2011 [facility] [address] [id number] [place] [address]- 0256 07 Jun, 2011 [facility] [place] [facility] [address] [id number] [place] [address]- 8196 03 Jun, 2011 [facility] [place] [facility] [address] [id number] [place] [address]- 4736 02 Jun, 2011 [facility] [place] [facility] [address] [id number] [place] [address]- 6641 31 May, 2011 [facility] [address] [id number] [place] [address]- 9190 30 May, 2011 [facility] [address] [id number] [place] [address]- 6374 May, [facility] [address] [id number] [place] [address]- 3829 May, [facility] [address] [id number] [place] [address]- 5592 May, [facility] [address] [id number] [place] [address]- 8530 May, [facility] [address] [id number] [place] [address]- 5321 May, [facility] [address] [id number] [place] [address]- 3318 May, [facility] [place] [facility] [address] [id number] [place] [address]- 5010 May, [facility] [address] [id number] [place] [address]- 5327 May, [facility] [place] [facility] [address] [id number] [place] [address]- 3048 May, [facility] [address] [id number], [place] [address]- 4405 May, [facility] [place] [facility] [address] [id number], [place] [address]- 4760 May, [facility] [place] [facility] [address] [id number] [place] [address]- 7360 May, [facility] [place] [facility] [address] [id number] [place] [address]- 2964 30 Apr, 2011 [facility] [place] [facility] [address] [id number] [place] [address]- 7926 16 Apr, 2011 [facility] [place] [facility] [address] [id number] [place] [address]- 6609 05 Apr, 2011 [facility] [place] [facility] [address] [id number] [place] [address]- 5076 17 Mar, 2011 [facility] [place] [facility] [address] [id number] [place] [address] 2546 Mar, [facility] [place] [facility] [address] [id number] [place] [address]- 7936 31 Feb, 2011 [facility] [place] [facility] [address] [id number] [place] [address] 2546 26 Feb, 2011 [facility] [place] [facility] [address] [id number] [place] [address]- 8279 Feb, [facility] [place] [facility] [address] [id number] [place] [address]- 1351 20 Feb, 2011 [facility] [place] [facility] [address] [id number] [place] [address]- 3152 13 Feb, 2011 [facility] [place] [facility] [address] [id number] [place] [address]- 6648 28 Apr, 2010 [facility] [place] [facility] [address] [id number] [place] [address] 2546 22 Apr, 2010 [facility] [place] [facility] [address] [facility] [id number] [place] [address] 2544 16 Apr, 2010 [facility] [place] [facility] [address] [id number] [place] [address] 2546 15 Apr, 2010 [facility] [place] [facility] [address] [id number] [place] [address] 2546 15 Apr, 2010 [facility] [place] [facility] [address] [id number] [place] [address] 2546 Apr, [facility] [place] [facility] [address] [id number] [place] [address] 2546 24 Mar, 2010 [facility] [place] [facility] [address] [id number] [place] [address] 2547 17 Mar, 2010 [facility] [id number] [address]- 9054 17 Mar, 2010 [facility] [id number], [place] [address]- 8609 28 Feb, 2010 [facility] [id number], [place] [address]- 0999 Feb, [facility] [id number] [place] [address]- 8153 Feb, [facility] [id number], [place] [address]- 6490 Feb, [facility] [id number] [place] [address]- 0503 Dec, [facility] [id number], [place] [address]- 9386 Dec, [facility] [id number] [place] [address]- 3776 Oct, [facility] [id number], [place] [address]- 9532 Mar, [facility] [id number], [place] [address]- 9733 Mar, [facility] [id number] [address]- 1810 September, IMMUNIZATIONS No Known Immunizations SOCIAL HISTORY Never Assessed REASON FOR VISIT EMR[place] [place] CARE VITAL SIGNS MEDICATIONS Unknown [...]
--- OUTSIDE RECORDS SUMMARY | 2018-09-19 09:21 | XMS REPORT ---
Author Author Migration, Doctor Organization [facility] Address Unknown Phone Unavailable Care Team Providers Care Math Professor Name Role Phone Migration, Doctor Unavailable Unavailable PROBLEMS Type Condition ICD9-CM Code LTG62-QX Code Onset Dates Condition Status SNOMED Code Problem Hypokalemia E87.6 Active 092923533 Problem Generalized anxiety disorder F41.1 Active 32416759 Problem Pain in right knee M25.561 Active 88966309 Problem Right low back pain, with sciatica presence unspecified M54.5 Active 622723182 Problem Right foot pain M79.671 Active 06130222 Problem UTI symptoms R39.9 Active 02454690 Problem Essential hypertension I10 Active 32298868 Problem Gastroesophageal reflux disease without esophagitis K21.9 Active 328662018 Problem Weight decrease R63.4 Active 868870510 Problem Depression, unspecified depression type F32.9 Active 78043774 Problem Right upper quadrant abdominal pain R10.11 Active 689524937 Problem Tobacco abuse Z72.0 Active 36509819 Problem Insomnia, unspecified type G47.00 Active 481195872 Problem Weight loss R63.4 Active 794754777 Problem Post-traumatic stress disorder, chronic F43.12 Active 30453018 Problem Pulmonary emphysema, unspecified emphysema type J43.9 Active 87091259 Problem Neuropathy G62.9 Active 343128926 Problem Anxiety F41.9 Active 61298905 Problem Other emphysema J43.8 Active 24453248 Problem Other chronic pain G89.29 Active 37053726 Problem Chronic pain G89.29 Active 96636712 Problem Opioid use disorder, moderate, dependence F11.20 Active 34786374 Problem Back pain M54.9 Active 468469192 Problem Bone pain M89.8X9 Active 37838372 Problem Panic attacks F41.0 Active 948711978 Problem Kidney stones N20.0 Active 21319710 Problem Renal calculus, right N20.0 Active 54422861 Problem Generalized abdominal pain R10.84 Active 246335342 ALLERGIES No Information ENCOUNTERS Encounter Location Date Diagnosis [facility] [address], [place] [address] Feb, [facility] [id number] [place] [address] 68568- 5788 Dec, [facility] [id number] [place] [address] 59961- 9969 Dec, [facility] [id number] [place] [address] 43653- 4968 Dec, Medicare welcome exam Z00.00 [facility] [id number] [place] [address] 60101- 9257 17 Nov, 2017 Opioid use disorder, moderate, dependence F11.20 [facility] [id number] [place] [address] 81406- 7653 16 Nov, 2017 Pelvic pain R10.2 ; Acute pyelonephritis N10 and Essential hypertension I10 [facility] [id number] [place] [address] 44799- 9860 28 Oct, 2017 Medicare welcome exam Z00.00 [facility] [id number] [place] [address] 98054- 4676 Oct, Gross hematuria R31.0 ; Urinary tract infection without hematuria, site unspecified N39.0 and Weakness R53.1 [facility] [id number] [place] [address] 41740- 4996 Oct, [facility] [id number] [place] [address] 05413- 8607 Oct, [facility] [id number] [place] [address] 84026- 7769 Oct, Medicare welcome exam Z00.00 [facility] [id number] [place] [address] 62781- 4049 September, Back pain M54.9 and Right anterior knee pain M25.561 [facility] [id number] [place] [address] 53746- 5882 September, [facility] [address], [place] [address] 9308 September, [facility] [id number] [place] [address] 16227- 0698 September, Essential hypertension I10 [facility] [id number] [place] [address] 98950- 9459 September, [facility] [id number] [place] [address] 57526- 6140 September, RLQ abdominal pain R10.31 ; Low back pain M54.5 and Other chronic pain G89.29 [facility] [id number] [place] [address] 79061- 7384 Aug, Medicare welcome exam Z00.00 [facility] [id number] [place] [address] 48762- 0255 Aug, [facility] [id number] [place] [address] 14843- 0820 Aug, Acute pyelonephritis N10 and Medicare welcome exam Z00.00 [facility] [id number] [place] [address] 05417 -8528 Aug, Dysuria R30.0 and Acute pyelonephritis N10 [facility] [address], [place] [address] 7037 Aug, [facility] [id number] [place] [address] 99653- 0617 Aug, [facility] [id number] [place] [address] 20612- 4365 Aug, [facility] [id number] [place] [address] 31730- 8897 Aug, [facility] [address], [place] [address] 9717 Jul, [facility] [id number] [place] [address] 26738- 9993 Jul, Renal calculus, right N20.0 and Medicare welcome exam Z00.00 [facility] [id number] [place] [address] 44270 -9349 Jul, Dysuria R30.0 and Renal calculus, right N20.0 [facility] [id number] [place] [address] 41283- 5158 Jul, Medicare welcome exam Z00.00 [facility] [id number] [place] [address] 41103- 2030 Jun, Gastroesophageal reflux disease without esophagitis K21.9 and Generalized abdominal pain R10.84 [facility] [id number] [place] [address] 10375- 3033 Jun, Medicare welcome exam Z00.00 [facility] [id number] [place] [address] 69917- 0615 Jun, [facility] [id number] [place] [address] 53271- 1950 Jun, Medicare welcome exam Z00.00 and Encounter for screening mammogram for malignant neoplasm of breast Z12.31 [facility] [id number] [place] [address] 83543- 5318 Jun, Chronic pain G89.29 [facility] [id number] [place] [address] 02058- 1369 May, [facility] [id number] [place] [address] 56133- 6736 May, Pelvic pain R10.2 [facility] [id number] [place] [address] 93099- 7250 May, Pelvic pain R10.2 [facility] [id number] [place] [address] 76240 -4495 May, Renal calculus, right N20.0 [facility] [id number] [place] [address] 95712- 2091 May, Hematuria, unspecified type R31.9 and Nephrolithiasis N20.0 [facility] [id number] [place] [address] 26633 -4409 May, Dysuria R30.0 and Nephrolithiasis N20.0 [facility] [id number] [place] [address] 66115- 4723 May, [facility] [id number] [place] [address] 18481 -3266 May, Abdominal pain R10.9 and Kidney stone N20.0 [facility] [id number] [place] [address] 37931- 4343 May, [facility] [id number] [place] [address] 78384- 7149 May, Chronic pain G89.29 and Panic attacks F41.0 [facility] [id number] [place] [address] 86019- 7935 May, Urinary tract infection without hematuria, site unspecified N39.0 [facility] [id number] [place] [address] 32425- 5113 Apr, Right lower quadrant abdominal pain R10.31 and Abnormal serum lipase level R74.8 [facility] [id number] [place] [address] 53559- 5478 Apr, Recurrent urinary tract infection N39.0 [facility] [id number] [place] [address] 75304- 8964 Apr, UTI symptoms R39.9 ; Recurrent urinary tract infection N39.0 and Pelvic pain R10.2 [facility] [id number] [place] [address] 16495- 4224 Apr, Chronic pain G89.29 and Panic attacks F41.0 [facility] [id number] [place] [address] 64040- 4607 Apr, Dysuria R30.0 [facility] [id number] [place] [address] 73822- 7878 Apr, [facility] [id number] [place] [address] 07499- 6645 Apr, Dysuria R30.0 and Urinary tract infection without hematuria , site unspecified N39.0 [facility] [id number] [place] [address] 29229- 8336 Mar, UTI symptoms R39.9 [facility] [id number] [place] [address] 23220- 4546 Mar, [facility] [id number] [place] [address] 24329- 0295 Mar, Panic attacks F41.0 and Chronic pain G89.29 [facility] [address] 73539- 9297 Mar, [facility] [id number] [place] [address] 12604- 3713 Mar, Dysuria R30.0 [facility] [id number] [place] [address] 88167- 3239 Mar, Dysuria R30.0 [facility] [id number] [place] [address] 50768- 8472 Feb, Chronic pain G89.29 ; Shortness of breath R06.02 ; Weight loss R63.4 ; Encounter for immunization Z23 ; Bone pain M89.8X9 ; Right anterior knee pain M25.561 and Cough R05 [facility] [id number] [place] [address] 57190- 1324 Feb, Shortness of breath R06.02 [facility] [id number] [place] [address] 63664- 6811 Feb, [facility] [id number] [place] [address] 49856- 3287 Feb, Panic attacks F41.0 and Chronic pain G89.29 [facility] [address] 57750- 0733 Feb, [facility] [address] 77549- 1306 04 Feb, 2017 Panic attacks F41.0 ; Shortness of breath R06.02 and Encounter for immunization Z23 [facility] [address] 06011- 3034 Jan, [facility] [address] 17676- 2427 15 Jan, 2017 Anxiety F41.9 and Chronic pain G89.29 [facility] [address] 81169- 7709 Dec, Anxiety F41.9 and Chronic pain G89.29 [facility] [address] 84964- 8780 Nov, Chronic pain G89.29 [facility] [address] 21024- 4147 Nov, Anxiety F41.9 [facility] [address] 73415- 5956 Nov, Chronic pain G89.29 ; Essential hypertension I10 and Other emphysema J43.8 [facility] [id number] [place] [address] 65129- 5635 Oct, Anxiety F41.9 [facility] [address] 98235- 0487 Oct, [facility] [address] 78584- 6013 Oct, Chronic pain G89.29 [facility] [address] 05492- 2056 September, Recurrent UTI N39.0 ; Neuropathy G62.9 and Anxiety F41.9 [facility] [id number] [place] [address] 93121- 6942 September, [facility] [id number] [place] [address] 36691- 7840 September, Chronic pain G89.29 [facility] [id number] [place] [address] 26355- 2142 September, [facility] [address] 27757- 6733 Aug, Post-traumatic stress disorder, chronic F43.12 ; Chronic urinary tract infection N39.0 ; Gastroesophageal reflux disease without esophagitis K21.9 ; Chronic pain G89.29 ; Essential hypertension I10 and Tobacco abuse Z72.0 [facility] [id number] [place] [address] 16753 -7150 Aug, [facility] [address] 03434- 8019 Aug, Chronic pain G89.29 [facility] [address] 06380- 6881 Aug, Insomnia, unspecified type G47.00 [facility] [id number] [place] [address] 44820- 4521 Aug, [facility] [id number] [place] [address] 67288- 2789 Jul, Chronic pain G89.29 [facility] [id number] [place] [address] 57303- 2253 Jul, [facility] [address] 52314- 1142 Jul, [facility] [id number] [place] [address] 27677- 9523 Jul, [facility] [address] 66323- 6104 15 Jul, 2016 Recurrent UTI (urinary tract infection) N39.0 [facility] [id number] [place] [address] 43233- 2183 14 Jul, 2016 [facility] [id number] [place] [address] 40207- 3722 27 Jun, 2016 Chronic pain G89.29 [facility] [id number] [place] [address] 03913- 8476 17 Jun, 2016 [facility] [id number] [place] [address] 32765- 0687 Jun, [facility] [id number] [place] [address] 83723- 1518 May, Chronic pain G89.29 [facility] [id number] [place] [address] 41875- 2572 May, Weight loss R63.4 and Shortness of breath R06.02 [facility] [id number] [place] [address] 38054- 5863 May, Chronic pain G89.29 ; Weight loss R63.4 and Tobacco abuse Z72.0 [facility] [id number] [place] [address] 55804- 0521 May, [facility] [id number] [place] [address] 14685- 3876 May, Hypoxia R09.02 [facility] [id number] [place] [address] 85108- 1759 May, [facility] [id number] [place] [address] 86702- 1169 May, Pulmonary emphysema, unspecified emphysema type J43.9 [facility] [id number] [place] [address] 88081 -2755 May, [facility] [id number] [place] [address] 13075- 9426 May, [facility] [id number] [place] [address] 96936- 0835 May, [facility] [address] 10117- 2601 May, Chronic pain G89.29 ; Encounter for immunization Z23 ; Right anterior knee pain M25.561 and Cough R05 [facility] [address] 48729- 4016 Apr, Chronic pain G89.29 [facility] [id number] [place] [address] 07550- 9239 Apr, [facility] [address] 59678- 1570 Apr, Generalized anxiety disorder F41.1 and Depression, unspecified depression type F32.9 [facility] [address] 81250- 0699 Apr, Chronic pain G89.29 ; Hypokalemia E87.6 and Insomnia, unspecified type G47.00 [facility] [id number] [place] [address] 79394- 2304 Apr, [facility] [id number] [place] [address] 69396- 3672 Apr, Chronic pain G89.29 [facility] [id number] [place] [address] 02155- 4911 Apr, [facility] [id number] [place] [address] 28813- 4167 Mar, [facility] [id number] [place] [address] 20273- 8120 Mar, Insomnia, unspecified type G47.00 [facility] [id number] [place] [address] 52028- 1556 Mar, Chronic pain G89.29 [facility] [id number] [place] [address] 61963- 8097 Mar, [facility] [address], [place] [address]- 6772 Feb, [facility] [address], [place] [address]- 6536 Feb, [facility] [id number] [place] [address] 53881- 8097 Feb, [facility] [id number] [place] [address] 01183- 3751 Feb, [facility] [id number] [place] [address] 91085- 9699 Feb, [facility] [id number] [place] [address] 71391- 9321 29 Jan, 2016 [facility] [id number] [place] [address] 99807- 0132 26 Jan, 2015 [facility] [address], [place] [address]- 4089 20 Jan, 2015 [facility] [id number] [place] [address] 71519- 6872 13 Jan, 2015 [facility] [address], [place] [address]- 3901 12 Jan, 2016 [facility] [id number] [place] [address] 77083- 3231 07 Jan, 2015 Chronic pain G89.29 [facility] [address], [place] [address]- 2731 Jan, 2015 Chronic pain G89.29 and Fibromyalgia M79.7 [facility] [address], [place] [address]- 7927 Dec, Depression, unspecified depression type F32.9 and Generalized anxiety disorder 300.02 [facility] [address], [place] [address]- 3136 Dec, Dysthymia F34.1 ; Insomnia, unspecified type G47.00 and Chronic pain G89.29 [facility] [address] [facility] [id number] [place] [address] 21834- 6309 Dec, Chronic pain G89.29 [facility] [id number] [place] [address] 42427 2546 Dec, Insomnia, unspecified type G47.00 [facility] [address] [facility] [id number] [place] [address] 87698 254 Dec, Fibromyalgia M79.7 and Chronic pain G89.29 [facility] [id number] [place] [address] 43217- 0906 Dec, [facility] [id number] [place] [address] 74379 2546 Dec, [facility] [id number] [place] [address] 72307- 6722 Dec, [facility] [id number] [place] [address] 01708 2546 Dec, [facility] [id number] [place] [address] 32926- 1615 Dec, Chronic pain G89.29 [facility] [id number] [place] [address] 80663 2544 Dec, [facility] [id number] [place] [address] 27767 2545 Dec, [facility] [id number] [place] [address] 09706 2546 Dec, [facility] [id number] [place] [address] 51060 2544 Dec, Chronic pain G89.29 and Dysthymia F34.1 [facility] [id number] [place] [address] 72438 2548 Nov, [facility] [id number] [place] [address] 18927- 6528 Nov, Hypokalemia E87.6 and Chronic pain G89.29 [facility] [address] 46083- 2152 Nov, Back pain M54.9 and Pain in right knee M25.561 [facility] [address] 87654- 7020 Nov, [facility] [address] 81836- 4362 Nov, Chronic pain G89.29 [facility] [address] 24197- 4730 Nov, Chronic pain G89.29 ; Weight loss R63.4 ; Bone pain M89.8X9 and Insomnia, unspecified type G47.00 [facility] [address] 54721- 4742 Nov, Chronic pain G89.29 [facility] [address] 39333- 3014 Nov, Chronic pain G89.29 [facility] [address] 62769- 5799 30 Oct, 2015 Chronic pain G89.29 [facility] [id number] [place] [address] 27135- 2024 Oct, UTI symptoms R39.9 [facility] [id number] [place] [address] 53663- 9456 27 Oct, 2015 Chronic pain G89.29 [facility] [address] 70994- 7676 20 Oct, 2015 Chronic pain G89.29 [facility] [id number] [place] [address] 92640- 0682 13 Oct, 2015 Chronic pain G89.29 [facility] [address] 36699- 9430 Oct, Right upper quadrant abdominal pain R10.11 [facility] [address], [place] [address]- 6571 Oct, Chronic pain G89.29 [facility] [address], [place] [address]- 1998 Oct, [facility] [id number] [place] [address] 19441- 4429 September, Chronic pain G89.29 [facility] [id number] [place] [address] 54925- 7253 September, Dysuria R30.0 and Urinary tract infection without hematuria , site unspecified N39.0 [facility] [id number] [place] [address] 18590- 5978 September, [facility] [id number] [place] [address] 79195- 1844 September, Dysuria R30.0 [facility] [id number] [place] [address] 07386- 9177 September, Chronic pain G89.29 [facility] [id number] [place] [address] 98372- 1308 September, Chronic pain G89.29 and Essential hypertension I10 [facility] [id number] [address] September, [facility] [id number] [place] [address] 87520- 5084 September, [facility] [id number] [place] [address] 81474- 9336 September, [facility] [id number] [place] [address] 66464- 3455 Aug, UTI symptoms R39.9 [facility] [id number] [address] Aug, Dysuria R30.0 [facility] [id number] [place] [address] Aug, [facility] [id number] [place] [address] 74363- 9618 Aug, [facility] [id number] [place] [address] 25205- 9301 Aug, [facility] [id number] [place] [address] 24861- 4633 Aug, Chronic pain G89.29 [facility] [id number] [place] [address] 18171- 0973 Aug, Dysthymia F34.1 [facility] [id number] [place] [address] 67391- 3355 Aug, Conjunctivitis, unspecified conjunctivitis type, unspecified laterality H10.9 [facility] [id number] [place] [address] 83656- 9297 Jul, Chronic pain G89.29 ; Back pain M54.9 ; Tobacco abuse Z72.0 and Weight decrease R63.4 [facility] [id number] [place] [address] 45463- 6485 Jul, [facility] [id number] [place] [address] 15230- 7345 Jul, [facility] [id number] [place] [address] 88079- 3688 24 Jul, 2015 Chronic pain G89.29 [facility] [id number] [address] 29[address] Jul, [facility] [id number] [place] [address] 47446- 2141 Jul, [facility] [id number] [place] [address] 61610- 7323 Jul, [facility] [id number] [place] [address] 18375- 9777 17 Jul, 2015 [facility] [id number] [address] 17 Jul, 2015 Chronic pain G89.29 [facility] [id number] [address]- 7535 16 Jul, 2015 Chronic pain G89.29 [facility] [id number] [place] [address] 27280- 8541 15 Jul, 2015 [facility] [id number] [place] [address] 53315- 3142 Jul, [facility] [id number] [place] [address] 02879- 9845 Jul, [facility] [id number] [place] [address] 50324- 9343 Jul, [facility] [id number] [place] [address] 59360- 2861 Jun, [facility] [id number] [place] [address] 27007- 2876 Jun, Depression, unspecified depression type F32.9 [facility] [id number] [place] [address] 71587- 9250 Jun, Pain in right knee M25.561 [facility] [id number] [place] [address] 36708- 4271 24 Jun, 2015 Chronic pain G89.29 ; Back pain M54.9 ; Bone pain M89.8X9 and Weight loss R63.4 [facility] [id number] [place] [address] 27598- 3280 Jun, [facility] [id number] [place] [address] 46756- 0033 May, [facility] [address] [address] 6927 May, UTI symptoms R39.9 ; Pain in right knee M25.561 ; Right low back pain, with sciatica presence unspecified M54.5 ; Right foot pain M79.671 ; Hypokalemia E87.6 and Screening, lipid Z13.220 [facility] [id number] [place] [address] 67761- 7125 May, [facility] [id number] [place] [address] 25340- 4137 May, [facility] [id number] [place] [address] 76523- 7112 Mar, [facility] [id number] [place] [address] 45793- 9752 Mar, [facility] [id number] [place] [address] 63390- 2666 Mar, Hypokalemia E87.6 [facility] [address] 67696- 9853 Mar, Pain in right leg M79.604 ; Encounter for immunization Z23 ; Pain in right knee M25.561 and Hypokalemia E87.6 [facility] [id number] [place] [address] 76472- 2342 Jan, [facility] [id number] [place] [address] 77850- 0485 Jan, [facility] [id number] [place] [address] 49126 2545 Jan, Abdominal pain, generalized 789.07 [facility] [id number] [place] [address] 42801 2545 Jan, Abdominal pain, generalized 789.07 [facility] [id number] [place] [address] 17468- 8134 Dec, [facility] [id number] [place] [address] 58535- 6566 Dec, [facility] [address] [address]- 1396 Dec, [facility] [id number] [place] [address] 83284- 6694 Nov, Hallux valgus 735.0 and Hammertoe 735.4 [facility] [address] [address]- 0696 Nov, [facility] [id number] [place] [address] 73707- 3300 Nov, Hallux valgus 735.0 and Hammer toe 735.4 [facility] [id number] [place] [address] 75624- 9006 Oct, [facility] [id number] [place] [address] 67710- 9026 Oct, [facility] [id number] [place] [address] 61668- 4224 Oct, Pre-op evaluation V72.84 [facility] [address] [address]- 8790 Oct, [facility] [id number] [place] [address] 29799- 6595 Oct, [facility] [address] [address]- 8734 September, [facility] [address] [address] 2546 September, [facility] [id number] [address]- 6501 September, Hallux valgus (acquired) 735.0 and Other hammer toe ( acquired) 735.4 [facility] [address] [address]- 2546 Aug, [facility] [id number] [place] [address] 18358- 2593 Aug, [facility] [place] [facility] [address] [id number] [place] [address]- 7349 Jul, [facility] [place] [facility] [address] [id number] [place] [address]- 0055 Jul, [facility] [place] [facility] [address] [id number] [place] [address]- 9399 Jul, [facility] [place] [facility] [address] [id number] [place] [address]- 4731 Jul, [facility] [place] [facility] [address] [id number] [place] [address]- 3048 Jul, [facility] [place] [facility] [address] [id number] [place] [address]- 6881 Jul, [facility] [place] [facility] [address] [facility] [id number] [place] [address]- 3351 Jul, [facility] [place] [facility] [address] [id number] [place] [address]- 1960 Jul, [facility] [place] [facility] [address] [id number] [place] [address]- 9684 Jun, [facility] [place] [facility] [address] [facility] [id number] [place] [address]- 9665 Jun, [facility] [place] [facility] [address] [id number] [place] [address]- 8617 Jun, 2014 [facility] [place] [facility] [address] [id number] [place] [address]- 5871 Jun, [facility] [place] [facility] [address] [id number] [place] [address]- 5882 Jun, [facility] [place] [facility] [address] [id number] [place] [address]- 9295 Jun, [facility] [place] [facility] [address] [facility] [id number] [place] [address]- 0163 Jun, [facility] [place] [facility] [address] [id number] [place] [address]- 9214 Jun, [facility] [address] [id number] [place] [address]- 2662 Jun, [facility] [place] [facility] [address] [id number] [place] [address]- 5606 Jun, [facility] [place] [facility] [address] [id number] [place] [address]- 3566 May, [facility] [place] [facility] [address] [id number] [place] [address]- 8822 May, [facility] [place] [facility] [address] [id number] [place] [address]- 9052 May, [facility] [place] [facility] [address] [id number] [place] [address]- 6113 May, [facility] [place] [facility] [address] [id number] [place] [address]- 2852 May, [facility] [address] [id number] [place] [address]- 1545 May, [facility] [place] [facility] [address] [id number] [place] [address]- 7861 May, [facility] [place] [facility] [address] [id number] [place] [address]- 2575 May, [facility] [place] [facility] [address] [id number] [place] [address]- 2525 May, [facility] [place] [facility] [address] [id number] [place] [address]- 9566 May, [facility] [place] [facility] [address] [id number] [place] [address]- 4870 May, [facility] [place] [facility] [address] [id number] [place] [address]- 9916 May, [facility] [place] [facility] [address] [id number] [place] [address]- 2878 May, [facility] [place] [facility] [address] [id number] [place] [address]- 1905 May, [facility] [place] [facility] [address] [id number] [place] [address]- 4091 May, [facility] [place] [facility] [address] [id number] [place] [address]- 5988 May, [facility] [place] [facility] [address] [id number] [place] [address]- 6478 May, [facility] [place] [facility] [address] [id number] [place] [address]- 3765 May, [facility] [place] [facility] [address] [id number] [place] [address]- 9315 Apr, [facility] [place] [facility] [address] [id number] [place] [address]- 2130 Apr, [facility] [place] [facility] [address] [id number] [place] [address]- 6394 Apr, [facility] [place] [facility] [address] [id number] [place] [address]- 7381 Apr, [facility] [place] [facility] [address] [id number] [place] [address]- 9118 Apr, [facility] [place] [facility] [address] [id number] [place] [address]- 3447 Apr, [facility] [place] [facility] [address] [id number] [place] [address]- 2727 Apr, [facility] [place] [facility] [address] [id number] [place] [address]- 3589 Apr, [facility] [place] [facility] [address] [id number] [place] [address]- 2291 Apr, [facility] [place] [facility] [address] [id number] [place] [address]- 3413 Mar, [facility] [place] [facility] [address] [id number] [place] [address]- 5349 Mar, [facility] [place] [facility] [address] [id number] [place] [address]- 6174 Mar, [facility] [place] [facility] [address] [id number] [place] [address]- 4080 Mar, [facility] [place] [facility] [address] [id number] [place] [address]- 4660 Mar, [facility] [place] [facility] [address] [id number] [place] [address]- 1102 Feb, [facility] [place] [facility] [address] [id number] [place] [address]- 8020 Feb, [facility] [place] [facility] [address] [id number] [place] [address]- 0550 Feb, [facility] [place] [facility] [address] [id number] [place] [address]- 1946 Feb, [facility] [place] [facility] [address] [id number] [place] [address]- 0369 Feb, [facility] [place] [facility] [address] [id number] [place] [address]- 9987 Feb, [facility] [place] [facility] [address] [id number] [place] [address]- 5160 Feb, [facility] [place] [facility] [address] [id number] [place] [address]- 1927 Feb, [facility] [place] [facility] [address] [id number] [address]- 2108 Feb, [facility] [place] [facility] [address] [id number] 3005 Feb, [facility] [place] [facility] [address] [id number], [place] [address]- 8494 Feb, [facility] [place] [facility] [address] [id number] 7028 Feb, [facility] [place] [facility] [address] [id number] [place] [address]- 4003 07 Feb, 2013 [facility] [place] [facility] [address] [id number] [place] [address]- 0858 Feb, [facility] [place] [facility] [address] [id number] [place] [address]- 5080 Feb, 2013 [facility] [place] [facility] [address] [id number] [place] [address]- 4610 Feb, [facility] [place] [facility] [address] [id number] [place] [address]- 3283 Jan, 2013 [facility] [place] [facility] [address] [id number] [place] [address]- 4520 23 Jan, 2013 [facility] [place] [facility] [address] [id number] [place] [address]- 2009 20 Jan, 2014 [facility] [place] [facility] [address] [id number] [place] [address]- 7508 19 Jan, 2013 [facility] [place] [facility] [address] [id number] [place] [address]- 9185 11 Jan, 2014 [facility] [place] [facility] [address] [id number] [place] [address]- 6417 Jan, [facility] [place] [facility] [address] [id number] [place] [address]- 2623 Jan, [facility] [place] [facility] [address] [id number] [place] [address]- 3592 Jan, 2013 [facility] [place] [facility] [address] [id number] [place] [address]- 6225 Dec, [facility] [place] [facility] [address] [id number] [place] [address]- 8606 Dec, [facility] [place] [facility] [address] [id number] [place] [address]- 5147 Nov, [facility] [place] [facility] [address] [id number] [place] [address]- 2978 Nov, [facility] [place] [facility] [address] [id number] [place] [address]- 0331 Nov, [facility] [place] [facility] [address] [id number] [place] [address]- 5658 Nov, [facility] [place] [facility] [address] [id number] [place] [address]- 7065 Nov, [facility] [place] [facility] [address] [id number] [place] [address]- 4852 Nov, [facility] [place] [facility] [address] [id number] [place] [address]- 3458 Nov, [facility] [place] [facility] [address] [id number] [place] [address]- 5276 Nov, [facility] [place] [facility] [address] [id number] [place] [address]- 7420 Nov, [facility] [place] [facility] [address] [id number] [place] [address]- 7028 Oct, [facility] [place] [facility] [address] [id number] [place] [address]- 0629 Oct, [facility] [place] [facility] [address] [id number] [place] [address]- 2076 Oct, [facility] [place] [facility] [address] [id number] [place] [address]- 4472 Oct, [facility] [place] [facility] [address] [id number] [place] [address]- 2901 Oct, [facility] [place] [facility] [address] [id number] [place] [address]- 2039 Oct, [facility] [place] [facility] [address] [id number] [place] [address]- 6528 September, [facility] [place] [facility] [address] [id number] [place] [address]- 3411 September, [facility] [place] [facility] [address] [id number] [place] [address]- 9556 September, [facility] [address] [id number] [place] 5992 September, [facility] [address] [id number] [place] [address]- 7256 September, [facility] [address] [id number] [place] [address]- 5572 September, [facility] [address] [id number] [place] [address]- 2170 September, [facility] [address] [id number] [place] 7731 September, [facility] [address] [id number] [place] [address]- 4920 September, [facility] [address] [id number] [place] [address]- 8923 September, [facility] [address] [id number] [place] [address]- 0330 September, [facility] [address] [id number] [place] [address]- 9857 September, [facility] [address] [id number] [place] [address]- 6049 September, [facility] [address] [id number] [place] [address]- 7024 September, [facility] [address] [id number] [place] [address]- 0858 September, [facility] [place] [facility] [address] [id number] [place] 1061 September, [facility] [place] [facility] [address] [id number] [place] 7399 September, [facility] [address] [id number] [place] [address]- 6499 September, [facility] [place] [facility] [address] [id number] [place] [address]- 4462 September, [facility] [place] [facility] [address] [id number] [place] [address]- 0385 September, [facility] [place] [facility] [address] [id number] [place] [address]- 8126 Aug, [facility] [place] [facility] [address] [id number] [place] [address]- 2395 Aug, [facility] [place] [facility] [address] [id number] [place] [address]- 7065 Aug, [facility] [place] [facility] [address] [id number] [place] [address]- 8548 Aug, [facility] [place] [facility] [address] [id number] [place] [address]- 4366 Aug, [facility] [place] [facility] [address] [id number] [place] [address]- 2892 Aug, [facility] [place] [facility] [address] [id number] [place] [address]- 7305 Aug, [facility] [place] [facility] [address] [id number] [place] [address]- 7633 Aug, [facility] [place] [facility] [address] [id number] [place] [address]- 3643 Aug, [facility] [place] [facility] [address] [id number] [place] [address]- 7327 Aug, [facility] [place] [facility] [address] [id number] [place] [address]- 7476 Aug, [facility] [place] [facility] [address] [id number] [place] [address]- 7549 Aug, [facility] [place] [facility] [address] [id number] [place] [address]- 7576 Aug, [facility] [place] [facility] [address] [id number] [place] [address]- 1889 Aug, [facility] [place] [facility] [address] [id number] [place] [address]- 3259 Aug, [facility] [place] [facility] [address] [id number] [place] [address]- 8929 Jul, [facility] [place] [facility] [address] [id number] [place] [address]- 1070 Jul, [facility] [place] [facility] [address] [id number] [place] [address]- 7680 Jul, [facility] [place] [facility] [address] [id number] [place] [address]- 3200 Jul, [facility] [place] [facility] [address] [id number] [place] [address]- 9452 Jul, [facility] [place] [facility] [address] [id number] [place] [address]- 2332 Jul, [facility] [place] [facility] [address] [id number] [place] [address]- 4936 Jul, [facility] [place] [facility] [address] [id number] [place] [address]- 3120 Jul, [facility] [place] [facility] [address] [id number] [place] [address]- 0283 Jul, [facility] [place] [facility] [address] [id number] [place] [address]- 7580 Jul, [facility] [place] [facility] [address] [id number] [place] [address]- 4431 Jul, [facility] [place] [facility] [address] [id number] [place] [address]- 1044 Jul, [facility] [place] [facility] [address] [id number] [place] [address]- 1995 Jul, [facility] [place] [facility] [address] [id number] [place] [address]- 3818 Jul, [facility] [place] [facility] [address] [id number] [place] [address]- 4559 Jul, [facility] [place] [facility] [address] [id number] [place] [address]- 2878 Jun, [facility] [place] [facility] [address] [id number] [place] [address]- 5606 Jun, [facility] [place] [facility] [address] [id number] [place] [address]- 5586 Jun, [facility] [place] [facility] [address] [id number] [place] [address]- 7152 Jun, [facility] [place] [facility] [address] [id number] [place] [address]- 7192 Jun, [facility] [place] [facility] [address] [id number] [place] [address]- 6454 Jun, [facility] [place] [facility] [address] [id number] [place] [address]- 6729 May, [facility] [place] [facility] [address] [id number] [place] [address]- 5529 May, [facility] [place] [facility] [address] [id number] [place] [address]- 2452 May, [facility] [place] [facility] [address] [id number] [place] [address]- 2076 May, [facility] [place] [facility] [address] [id number] [place] [address]- 2203 May, [facility] [place] [facility] [address] [id number] [place] [address]- 1489 May, [facility] [place] [facility] [address] [id number] [place] [address] May, [facility] [place] [facility] [address] [id number] [place] [address] May, [facility] [place] [facility] [address] [id number] [place] [address] May, [facility] [address] [id number] [place] [address] May, [facility] [place] [facility] [address] [id number] [place] [address] May, [facility] [place] [facility] [address] [id number] [place] [address] May, [facility] [place] [facility] [address] [id number] [place] [address] 8585 May, [facility] [place] [facility] [address] [id number] [place] [address] May, [facility] [place] [facility] [address] [id number] [place] [address] May, [facility] [place] [facility] [address] [id number] [place] [address] Apr, [facility] [place] [facility] [address] [id number] [place] [address] Apr, [facility] [place] [facility] [address] [id number] [place] [address]- [address] Apr, [facility] [place] [facility] [address] [id number] [place] [address] Apr, [facility] [place] [facility] [address] [id number] [place] [address]- [address] Apr, [facility] [place] [facility] [address] [id number] [place] [address]- [address] Apr, [facility] [place] [facility] [address] [id number] [place] [address] Apr, [facility] [place] [facility] [address] [id number] [place] [address]- [address] Apr, [facility] [place] [facility] [address] [id number] [place] [address]- [address] Apr, [facility] [place] [facility] [address] [id number] [place] [address]- [address] Apr, [facility] [address] [id number] [place] [address] Mar, [facility] [address] [id number] [place] [address] Mar, [facility] [address] [id number] [place] [address]- 1539 Mar, [facility] [address] [id number] [place] [address]- [address] Mar, [facility] [address] [id number] [place] [address]- [address] Mar, [facility] [address] [id number] [place] [address] 94[address] Mar, [facility] [address] [id number] [place] [address] Mar, [facility] [address] [id number] [place] [address] Mar, [facility] [address] [id number] [place] [address] 2010 Mar, [facility] [address] [id number] [place] [address] Mar, [facility] [address] [id number] [place] [address] 3360 Mar, [facility] [address] [id number] [place] [address]- 38[address] Mar, [facility] [place] [facility] [address] [id number] [place] [address]- 1443 Mar, [facility] [place] [facility] [address] [id number] [place] [address]- [address]273 Mar, [facility] [address] [id number] [place] [address] 1386 Mar, [facility] [place] [facility] [address] [id number] [place] [address]- 7930 18 Mar, 2013 [facility] [place] [facility] [address] [id number] [place] [address]- [address] Mar, [facility] [place] [facility] [address] [id number] [place] [address]- 4618 Mar, [facility] [place] [facility] [address] [id number] [place] [address]- 9896 Mar, [facility] [place] [facility] [address] [id number] [place] [address]- 1782 Mar, [facility] [place] [facility] [address] [id number] [place] [address]- [address] Mar, [facility] [place] [facility] [address] [id number] [place] [address]- 3186 Mar, [facility] [place] [facility] [address] [id number], [place] [address] Mar, [facility] [place] [facility] [address] [id number], [place] [address] Feb, [facility] [place] [facility] [address] [id number], [place] [address] Feb, [facility] [place] [facility] [address] [id number], [place] [address] Feb, [facility] [place] [facility] [address] [id number], [place] [address]- [address] 16 Feb, 2013 [facility] [place] [facility] [address] [id number], [place] [address] 15 Feb, 2013 [facility] [place] [facility] [address] [id number], [place] [address] Feb, [facility] [place] [facility] [address] [facility] [id number], [place] [address]- [address] Feb, [facility] [place] [facility] [address] [id number], [place] [address] Feb, [facility] [address] [id number] [place] [address]- [address] Feb, [facility] [place] [facility] [address] [id number] [place] [address]- 9815 Feb, [facility] [place] [facility] [address] [id number] [place] [address]- [address] 30 Jan, 2013 [facility] [place] [facility] [address] [id number] [place] [address]- 2502 26 Jan, 2013 [facility] [place] [facility] [address] [id number] [place] [address]- 7255 24 Jan, 2013 [facility] [place] [facility] [address] [id number] [place] [address]- 2670 23 Jan, 2013 [facility] [place] [facility] [address] [id number] [place] [address]- 3574 17 Jan, 2013 [facility] [place] [facility] [address] [id number] [place] [address]- [address] Dec, [facility] [place] [facility] [address] [id number] [place] [address]- 478[address] Dec, [facility] [place] [facility] [address] [id number] [place] [address]- [address]162 Dec, [facility] [place] [facility] [address] [id number] [place] [address]- 1470 15 Dec, 2012 [facility] [place] [facility] [address] [id number] [place] [address]- 7330 14 Dec, 2012 [facility] [place] [facility] [address] [id number] [place] [address]- 5958 Dec, [facility] [place] [facility] [address] [id number] [place] [address]- 5933 Dec, [facility] [place] [facility] [address] [id number] [place] [address]- [address] Nov, [facility] [place] [facility] [address] [id number] [place] [address]- [address] 16 Nov, 2012 [facility] [facility] [address] [id number] [place] [address] 15 Nov, 2012 [facility] [place] [facility] [address] [id number] [place] [address] 05 Nov, 2012 [facility] [address] [id number] [place] [address] Nov, [facility] [place] [facility] [address] [id number] [place] [address] Oct, [facility] [address] [id number] [place] [address] Oct, [facility] [place] [facility] [address] [id number] [place] [address] 2546 Oct, [facility] [address] [id number] [place] [address] 9146 September, [facility] [address] [id number] [place] [address] 4866 September, [facility] [address] [id number] [place] [address]- 0786 September, [facility] [address] [id number] [place] [address]- 6276 September, [facility] [place] [facility] [address] [id number] [place] [address]- 1506 September, [facility] [address] [id number] [place] [address]- 2546 September, [facility] [place] [facility] [address] [id number] [place] [address]- 2546 September, [facility] [place] [facility] [address] [id number] [place] [address]- 2546 Aug, [facility] [place] [facility] [address] [id number] [place] [address]- 1110 23 Aug, 2012 [facility] [place] [facility] [address] [id number] [place] [address]- 0358 11 Aug, 2012 [facility] [place] [facility] [address] [id number] [place] [address]- 6106 29 Jul, 2012 [facility] [place] [facility] [address] [id number] [place] [address]- 5806 27 Jul, 2012 [facility] [place] [facility] [address] [id number] [place] [address]- 8884 26 Jul, 2012 [facility] [place] [facility] [address] [id number] [place] [address]- 3526 20 Jul, 2012 [facility] [place] [facility] [address] [id number] [place] [address]- 4304 18 Jul, 2012 [facility] [place] [facility] [address] [facility] [id number] [place] [address]- 8718 18 Jul, 2012 [facility] [place] [facility] [address] [id number] [place] [address]- 9997 13 Jul, 2012 [facility] [place] [facility] [address] [id number] [place] [address]- 9134 28 Jun, 2012 [facility] [place] [facility] [address] [facility] [id number] [place] [address]- 3360 27 Jun, 2012 [facility] [place] [facility] [address] [facility] [id number] [place] [address]- 5332 22 Jun, 2012 [facility] [place] [facility] [address] [id number] [place] [address]- 1868 20 Jun, 2012 [facility] [place] [facility] [address] [id number] [place] [address]- 4584 15 Jun, 2012 [facility] [place] [facility] [address] [id number] [place] [address]- 1889 15 Jun, 2012 [facility] [place] [facility] [address] [facility] [id number] [place] [address]- 3707 13 Jun, 2012 [facility] [place] [facility] [address] [id number] [place] [address]- 6706 Jun, [facility] [address] [id number] [place] [address]- 1566 Jun, [facility] [place] [facility] [address] [id number] [place] [address]- 2546 Jun, [facility] [address] [id number] [place] [address]- 5526 May, [facility] [place] [facility] [address] [id number] [place] [address] 2540 May, [facility] [address] [id number] [place] [address]- 0206 May, [facility] [address] [id number] [place] [address]- 9840 May, [facility] [address] [id number] [place] [address]- 1023 May, [facility] [address] [id number] [place] [address]- 2549 May, [facility] [address] [id number] [place] [address]- 3863 31 Apr, 2012 [facility] [address] [id number] [place] [address] 2546 31 Apr, 2012 [facility] [address] [id number] [place] [address] 2546 Apr, [facility] [place] [facility] [address] [id number] [place] [address] 2545 28 Apr, 2012 [facility] [place] [facility] [address] [id number] [place] [address] 2546 26 Apr, 2012 [facility] [place] [facility] [address] [id number] [place] [address]- 2546 20 Apr, 2012 [facility] [place] [facility] [address] [id number] [place] [address]- 7417 Apr, [facility] [place] [facility] [address] [id number] [place] [address]- 9999 Mar, [facility] [place] [facility] [address] [id number] [place] [address]- 8813 Mar, [facility] [place] [facility] [address] [facility] [id number] [place] [address]- 8968 Mar, [facility] [place] [facility] [address] [id number] [place] [address]- 6041 Mar, [facility] [place] [facility] [address] [id number] [place] [address]- 3685 Mar, [facility] [place] [facility] [address] [id number], [place] [address]- 2846 Mar, [facility] [place] [facility] [address] [id number] [place] [address]- 6795 Mar, [facility] [place] [facility] [address] [id number], [place] [address] 4899 Mar, [facility] [place] [facility] [address] [id number], [place] [address]- 5940 Mar, [facility] [place] [facility] [address] [id number], [place] [address]- 6957 Mar, [facility] [place] [facility] [address] [id number], [place] [address]- 6665 Mar, [facility] [place] [facility] [address] [id number], [place] [address]- 7401 Mar, [facility] [place] [facility] [address] [id number], [place] [address]- 2531 Mar, [facility] [place] [facility] [address] [facility] [id number], [place] [address]- 8246 Mar, [facility] [place] [facility] [address] [facility] [id number], [place] [address]- 2669 Mar, [facility] [place] [facility] [address] [id number] [place] [address]- 8359 Mar, [facility] [place] [facility] [address] [id number] [place] [address]- 9354 Mar, [facility] [place] [facility] [address] [id number] [place] [address]- 7035 Feb, [facility] [place] [facility] [address] [id number] [place] [address]- 1485 Feb, 2011 [facility] [place] [facility] [address] [id number] [place] [address]- 3193 Feb, [facility] [place] [facility] [address] [id number] [place] [address]- 0436 Feb, [facility] [place] [facility] [address] [id number] [place] [address]- 8079 Feb, [facility] [place] [facility] [address] [id number] [place] [address]- 7190 Feb, [facility] [place] [facility] [address] [id number] [place] [address]- 7744 Feb, [facility] [place] [facility] [address] [id number] [place] [address]- 3838 Feb, [facility] [place] [facility] [address] [facility] [id number] [place] [address]- 9858 Feb, [facility] [place] [facility] [address] [id number] [place] [address]- 1899 Feb, [facility] [place] [facility] [address] [id number] [place] [address]- 2345 Feb, [facility] [place] [facility] [address] [id number] [place] [address]- 4676 27 Jan, 2011 [facility] [place] [facility] [address] [id number] [place] [address]- 0001 25 Jan, 2012 [facility] [place] [facility] [address] [id number] [place] [address]- 0689 13 Jan, 2012 [facility] [place] [facility] [address] [id number] [place] [address]- 0119 12 Jan, 2012 [facility] [place] [facility] [address] [id number] [place] [address]- 7930 Jan, [facility] [place] [facility] [address] [id number] [place] [address]- 7794 Dec, [facility] [place] [facility] [address] [id number] [place] [address]- 0140 Dec, [facility] [place] [facility] [address] [id number] [place] [address]- 6527 Dec, [facility] [place] [facility] [address] [id number] [place] [address]- 4062 Dec, [facility] [place] [facility] [address] [id number] [place] [address]- 4224 Dec, [facility] [place] [facility] [address] [id number] [place] [address]- 2470 Dec, [facility] [place] [facility] [address] [id number] [place] [address]- 5654 Dec, [facility] [place] [facility] [address] [id number] [place] [address]- 3398 Dec, [facility] [place] [facility] [address] [id number] [place] [address]- 7872 Nov, [facility] [place] [facility] [address] [id number] [place] [address]- 7319 Nov, [facility] [place] [facility] [address] [id number] [place] [address]- 9383 Nov, [facility] [place] [facility] [address] [id number] [place] [address]- 6674 Nov, [facility] [place] [facility] [address] [id number] [place] [address]- 4512 Nov, [facility] [place] [facility] [address] [id number] [place] [address]- 6874 Oct, [facility] [address] [id number] [place] [address] Oct, [facility] [place] [facility] [address] [id number] [place] [address]- 8692 September, [facility] [address] [id number] [place] [address]- 0306 September, [facility] [place] [facility] [address] [id number] [place] [address]- 4582 September, [facility] [address] [id number] [place] [address]- 4842 September, [facility] [place] [facility] [address] [id number] [place] [address]- 3395 September, [facility] [address] [id number] [place] [address]- 2406 September, [facility] [place] [facility] [address] [id number] [place] [address]- 1790 September, [facility] [place] [facility] [address] [id number] [place] [address]- 4711 September, [facility] [place] [facility] [address] [id number] [place] [address]- 6002 September, [facility] [place] [facility] [address] [id number] [place] [address]- 3057 September, [facility] [place] [facility] [address] [id number] [place] [address]- 4990 September, [facility] [place] [facility] [address] [id number] [place] [address]- 5068 September, [facility] [place] [facility] [address] [id number] [place] [address]- 4687 September, [facility] [place] [facility] [address] [id number] [place] [address]- 3300 September, [facility] [place] [facility] [address] [id number] [place] [address]- 3077 24 Aug, 2011 [facility] [address] [id number] [place] [address]- 1688 20 Aug, 2011 [facility] [address] [id number] [place] [address]- 4566 13 Aug, 2011 [facility] [address] [id number] [place] [address]- 9763 11 Aug, 2011 [facility] [address] [id number] [place] [address]- 0960 23 Jul, 2011 [facility] [address] [id number] [place] [address]- 2284 13 Jul, 2011 [facility] [address] [id number] [place] [address]- 3998 13 Jul, 2011 [facility] [address] [id number] [place] [address]- 3140 28 Jun, [address] [facility] [address] [id number][place] [id number] 26 Jun, 2011 [facility] [address] [id number] [place] [address]- 4804 13 Jun, 2011 [facility] [address] [id number] [place] [address]- 9464 10 Jun, 2011 [facility] [address] [id number] [place] [address]- 3976 07 Jun, 2011 [facility] [address] [id number] [place] [address]- 7356 07 Jun, 2011 [facility] [place] [facility] [address] [id number] [place] [address]- 0576 03 Jun, 2011 [facility] [place] [facility] [address] [id number] [place] [address]- 3306 02 Jun, 2011 [facility] [place] [facility] [address] [id number] [place] [address]- 7024 31 May, 2011 [facility] [address] [id number] [place] [address]- 1366 30 May, 2011 [facility] [address] [id number] [place] [address]- 8744 May, [facility] [address] [id number] [place] [address]- 0343 May, [facility] [address] [id number] [place] [address]- 7904 May, [facility] [address] [id number] [place] [address]- 7348 May, [facility] [address] [id number] [place] [address]- 1228 May, [facility] [address] [id number] [place] [address]- 3989 May, [facility] [place] [facility] [address] [id number] [place] [address]- 2525 May, [facility] [address] [id number] [place] [address]- 9617 May, [facility] [place] [facility] [address] [id number] [place] [address]- 9308 May, [facility] [address] [id number], [place] [address]- 6052 May, [facility] [place] [facility] [address] [id number], [place] [address]- 6141 May, [facility] [place] [facility] [address] [id number] [place] [address]- 9999 May, [facility] [place] [facility] [address] [id number] [place] [address]- 3771 30 Apr, 2011 [facility] [place] [facility] [address] [id number] [place] [address]- 7852 16 Apr, 2011 [facility] [place] [facility] [address] [id number] [place] [address]- 8672 05 Apr, 2011 [facility] [place] [facility] [address] [id number] [place] [address]- 0626 17 Mar, 2011 [facility] [place] [facility] [address] [id number] [place] [address] 2546 Mar, [facility] [place] [facility] [address] [id number] [place] [address]- 1756 31 Feb, 2011 [facility] [place] [facility] [address] [id number] [place] [address] 2546 26 Feb, 2011 [facility] [place] [facility] [address] [id number] [place] [address]- 6987 Feb, [facility] [place] [facility] [address] [id number] [place] [address]- 8265 20 Feb, 2011 [facility] [place] [facility] [address] [id number] [place] [address]- 5858 13 Feb, 2011 [facility] [place] [facility] [address] [id number] [place] [address]- 5142 28 Apr, 2010 [facility] [place] [facility] [address] [id number] [place] [address] 2546 22 Apr, 2010 [facility] [place] [facility] [address] [facility] [id number] [place] [address] 2541 16 Apr, 2010 [facility] [place] [facility] [address] [id number] [place] [address] 2546 15 Apr, 2010 [facility] [place] [facility] [address] [id number] [place] [address] 2546 15 Apr, 2010 [facility] [place] [facility] [address] [id number] [place] [address] 2546 Apr, [facility] [place] [facility] [address] [id number] [place] [address] 2546 24 Mar, 2010 [facility] [place] [facility] [address] [id number] [place] [address] 2548 17 Mar, 2010 [facility] [id number], [place] [address]- 1820 17 Mar, 2010 [facility] [id number], [place] [address]- 2359 28 Feb, 2010 [facility] [id number], [place] [address]- 2479 Feb, [facility] [id number] [place] [address]- 9661 Feb, [facility] [id number], [place] [address]- 1761 Feb, [facility] [id number] [place] [address]- 5277 Dec, [facility] [id number], [place] [address]- 1335 Dec, [facility] [id number] [place] [address] 038[address]- 0249 Oct, [facility] [id number], [place] [address]- 2559 Mar, [facility] [id number], [place] [address]- 5064 Mar, [facility] [id number], [place] [address]- 2828 September, IMMUNIZATIONS No Known Immunizations SOCIAL HISTORY Never Assessed REASON FOR VISIT EMR-[facility] PLAN OF CARE VITAL SIGNS MEDICATIONS Unknown [...]
--- OUTSIDE RECORDS SUMMARY | 2018-09-19 09:23 | XMS REPORT ---
Author Author Migration, Doctor Organization [facility] Address Unknown Phone Unavailable Care Team Providers Care Supervisor Yard Name Role Phone Migration, Doctor Unavailable Unavailable PROBLEMS Type Condition ICD9-CM Code [id number] Code Onset Dates Condition Status SNOMED Code Problem Hypokalemia E87.6 Active 978083326 Problem Generalized anxiety disorder F41.1 Active 85164344 Problem Pain in right knee M25.561 Active 17551954 Problem Right low back pain, with sciatica presence unspecified M54.5 Active 715731767 Problem Right foot pain M79.671 Active 49657148 Problem UTI symptoms R39.9 Active 32115429 Problem Essential hypertension I10 Active 40047493 Problem Gastroesophageal reflux disease without esophagitis K21.9 Active 390872373 Problem Weight decrease R63.4 Active 588900883 Problem Depression, unspecified depression type F32.9 Active 53951578 Problem Right upper quadrant abdominal pain R10.11 Active 431806799 Problem Tobacco abuse Z72.0 Active 35014409 Problem Insomnia, unspecified type G47.00 Active 038786511 Problem Weight loss R63.4 Active 635951224 Problem Post-traumatic stress disorder, chronic F43.12 Active 93572436 Problem Pulmonary emphysema, unspecified emphysema type J43.9 Active 30076401 Problem Neuropathy G62.9 Active 194614396 Problem Anxiety F41.9 Active 56922911 Problem Other emphysema J43.8 Active 18749271 Problem Other chronic pain G89.29 Active 32572676 Problem Chronic pain G89.29 Active 12634520 Problem Opioid use disorder, moderate, dependence F11.20 Active 36859624 Problem Back pain M54.9 Active 199802898 Problem Bone pain M89.8X9 Active 15230411 Problem Panic attacks F41.0 Active 708310341 Problem Kidney stones N20.0 Active 82684949 Problem Renal calculus, right N20.0 Active 24379695 Problem Generalized abdominal pain R10.84 Active 337992672 ALLERGIES No Information ENCOUNTERS Encounter Location Date Diagnosis [facility] [address], [place] [address] Feb, [facility] [id number] [place] [address] 76701- 4950 Dec, [facility] [id number] [place] [address] 68870- 1304 Dec, [facility] [id number] [place] [address] 35746- 8481 Dec, Medicare welcome exam Z00.00 [facility] [id number] [place] [address] 70080- 9449 17 Nov, 2017 Opioid use disorder, moderate, dependence F11.20 [facility] [id number] [place] [address] 68089- 0635 16 Nov, 2017 Pelvic pain R10.2 ; Acute pyelonephritis N10 and Essential hypertension I10 [facility] [id number] [place] [address] 83926- 6872 28 Oct, 2017 Medicare welcome exam Z00.00 [facility] [id number] [place] [address] 47093- 7668 Oct, Gross hematuria R31.0 ; Urinary tract infection without hematuria, site unspecified N39.0 and Weakness R53.1 [facility] [id number] [place] [address] 37389- 8426 Oct, [facility] [id number] [place] [address] 06706- 0613 Oct, [facility] [id number] [place] [address] 86063- 7498 Oct, Medicare welcome exam Z00.00 [facility] [id number] [place] [address] 67201- 2068 September, Back pain M54.9 and Right anterior knee pain M25.561 [facility] [id number] [place] [address] 63231- 8638 September, [facility] [address], [place] [address] 9547 September, [facility] [id number] [place] [address] 51747- 1982 September, Essential hypertension I10 [facility] [id number] [place] [address] 09594- 0918 September, [facility] [id number] [place] [address] 83237- 8934 September, RLQ abdominal pain R10.31 ; Low back pain M54.5 and Other chronic pain G89.29 [facility] [id number] [place] [address] 02908- 1620 Aug, Medicare welcome exam Z00.00 [facility] [id number] [place] [address] 97046- 0891 Aug, [facility] [id number] [place] [address] 42403- 2544 Aug, Acute pyelonephritis N10 and Medicare welcome exam Z00.00 [facility] [id number] [place] [address] 40518 -3540 Aug, Dysuria R30.0 and Acute pyelonephritis N10 [facility] [address], [place] [address] 0501 Aug, [facility] [id number] [place] [address] 40911- 7176 Aug, [facility] [id number] [place] [address] 00516- 1310 Aug, [facility] [id number] [place] [address] 07560- 8563 Aug, [facility] [address], [place] [address]- 8781 Jul, [facility] [id number] [place] [address] 37649- 1169 Jul, Renal calculus, right N20.0 and Medicare welcome exam Z00.00 [facility] [id number] [place] [address] 31124 -4452 Jul, Dysuria R30.0 and Renal calculus, right N20.0 [facility] [id number] [place] [address] 80959- 5893 Jul, Medicare welcome exam Z00.00 [facility] [id number] [place] [address] 70661- 3125 Jun, Gastroesophageal reflux disease without esophagitis K21.9 and Generalized abdominal pain R10.84 [facility] [id number] [place] [address] 43925- 7851 Jun, Medicare welcome exam Z00.00 [facility] [id number] [place] [address] 75665- 9281 Jun, [facility] [id number] [place] [address] 83654- 0261 Jun, Medicare welcome exam Z00.00 and Encounter for screening mammogram for malignant neoplasm of breast Z12.31 [facility] [id number] [place] [address] 25787- 2353 Jun, Chronic pain G89.29 [facility] [id number] [place] [address] 55510- 6918 May, [facility] [id number] [place] [address] 24981- 0737 May, Pelvic pain R10.2 [facility] [id number] [place] [address] 33934- 6882 May, Pelvic pain R10.2 [facility] [id number] [place] [address] 48161 -5679 May, Renal calculus, right N20.0 [facility] [id number] [place] [address] 09298- 5828 May, Hematuria, unspecified type R31.9 and Nephrolithiasis N20.0 [facility] [id number] [place] [address] 72698 -1306 May, Dysuria R30.0 and Nephrolithiasis N20.0 [facility] [id number] [place] [address] 17348- 5161 May, [facility] [id number] [place] [address] 38969 -5605 May, Abdominal pain R10.9 and Kidney stone N20.0 [facility] [id number] [place] [address] 02316- 8622 May, [facility] [id number] [place] [address] 48994- 5803 May, Chronic pain G89.29 and Panic attacks F41.0 [facility] [id number] [place] [address] 15806- 7093 May, Urinary tract infection without hematuria, site unspecified N39.0 [facility] [id number] [place] [address] 88833- 8158 Apr, Right lower quadrant abdominal pain R10.31 and Abnormal serum lipase level R74.8 [facility] [id number] [place] [address] 06281- 2211 Apr, Recurrent urinary tract infection N39.0 [facility] [id number] [place] [address] 35494- 9850 Apr, UTI symptoms R39.9 ; Recurrent urinary tract infection N39.0 and Pelvic pain R10.2 [facility] [id number] [place] [address] 62157- 5863 Apr, Chronic pain G89.29 and Panic attacks F41.0 [facility] [id number] [place] [address] 37726- 8534 Apr, Dysuria R30.0 [facility] [id number] [place] [address] 24533- 0956 Apr, [facility] [id number] [place] [address] 34856- 9071 Apr, Dysuria R30.0 and Urinary tract infection without hematuria , site unspecified N39.0 [facility] [id number] [place] [address] 68766- 0236 Mar, UTI symptoms R39.9 [facility] [id number] [place] [address] 54161- 0669 Mar, [facility] [id number] [place] [address] 81954- 5151 Mar, Panic attacks F41.0 and Chronic pain G89.29 [facility] [address] 55076- 7606 Mar, [facility] [id number] [place] [address] 54290- 8815 Mar, Dysuria R30.0 [facility] [id number] [place] [address] 80951- 2815 Mar, Dysuria R30.0 [facility] [id number] [place] [address] 62376- 4926 Feb, Chronic pain G89.29 ; Shortness of breath R06.02 ; Weight loss R63.4 ; Encounter for immunization Z23 ; Bone pain M89.8X9 ; Right anterior knee pain M25.561 and Cough R05 [facility] [id number] [place] [address] 73130- 5216 Feb, Shortness of breath R06.02 [facility] [id number] [place] [address] 98605- 1330 Feb, [facility] [id number] [place] [address] 04901- 7142 Feb, Panic attacks F41.0 and Chronic pain G89.29 [facility] [address] 85244- 2649 Feb, [facility] [address] 88487- 1259 04 Feb, 2017 Panic attacks F41.0 ; Shortness of breath R06.02 and Encounter for immunization Z23 [facility] [address] 50054- 7043 Jan, [facility] [address] 02934- 2752 15 Jan, 2017 Anxiety F41.9 and Chronic pain G89.29 [facility] [address] 51457- 4611 Dec, Anxiety F41.9 and Chronic pain G89.29 [facility] [address] 51344- 0146 Nov, Chronic pain G89.29 [facility] [address] 99954- 7008 Nov, Anxiety F41.9 [facility] [address] 40870- 4539 Nov, Chronic pain G89.29 ; Essential hypertension I10 and Other emphysema J43.8 [facility] [id number] [place] [address] 24368- 4043 Oct, Anxiety F41.9 [facility] [address] 58054- 8569 Oct, [facility] [address] 02658- 7141 Oct, Chronic pain G89.29 [facility] [address] 68991- 1159 September, Recurrent UTI N39.0 ; Neuropathy G62.9 and Anxiety F41.9 [facility] [id number] [place] [address] 41474- 1202 September, [facility] [id number] [place] [address] 82773- 9891 September, Chronic pain G89.29 [facility] [id number] [place] [address] 76719- 2223 September, [facility] [address] 83846- 3775 Aug, Post-traumatic stress disorder, chronic F43.12 ; Chronic urinary tract infection N39.0 ; Gastroesophageal reflux disease without esophagitis K21.9 ; Chronic pain G89.29 ; Essential hypertension I10 and Tobacco abuse Z72.0 [facility] [id number] [place] [address] 13273 -1432 Aug, [facility] [address] 24668- 8385 Aug, Chronic pain G89.29 [facility] [address] 35151- 2250 Aug, Insomnia, unspecified type G47.00 [facility] [id number] [place] [address] 50025- 2047 Aug, [facility] [id number] [place] [address] 64731- 4729 Jul, Chronic pain G89.29 [facility] [id number] [place] [address] 25890- 7246 Jul, [facility] [address] 68367- 7851 Jul, [facility] [id number] [place] [address] 12539- 0351 Jul, [facility] [address] 15816- 7945 15 Jul, 2016 Recurrent UTI (urinary tract infection) N39.0 [facility] [id number] [place] [address] 99310- 3179 14 Jul, 2016 [facility] [id number] [place] [address] 42269- 8497 27 Jun, 2016 Chronic pain G89.29 [facility] [id number] [place] [address] 50583- 2099 17 Jun, 2016 [facility] [id number] [place] [address] 61188- 2191 Jun, [facility] [id number] [place] [address] 56765- 8803 May, Chronic pain G89.29 [facility] [id number] [place] [address] 14361- 2150 May, Weight loss R63.4 and Shortness of breath R06.02 [facility] [id number] [place] [address] 56694- 6616 May, Chronic pain G89.29 ; Weight loss R63.4 and Tobacco abuse Z72.0 [facility] [id number] [place] [address] 88058- 2146 May, [facility] [id number] [place] [address] 36167- 2130 May, Hypoxia R09.02 [facility] [id number] [place] [address] 58186- 0053 May, [facility] [id number] [place] [address] 28101- 5847 May, Pulmonary emphysema, unspecified emphysema type J43.9 [facility] [id number] [place] [address] 62939 -3987 May, [facility] [id number] [place] [address] 02331- 4066 May, [facility] [id number] [place] [address] 82857- 0726 May, [facility] [address] 94191- 6275 May, Chronic pain G89.29 ; Encounter for immunization Z23 ; Right anterior knee pain M25.561 and Cough R05 [facility] [address] 83229- 1173 Apr, Chronic pain G89.29 [facility] [id number] [place] [address] 70582- 3426 Apr, [facility] [address] 90073- 9251 Apr, Generalized anxiety disorder F41.1 and Depression, unspecified depression type F32.9 [facility] [address] 65579- 0999 Apr, Chronic pain G89.29 ; Hypokalemia E87.6 and Insomnia, unspecified type G47.00 [facility] [id number] [place] [address] 01689- 1602 Apr, [facility] [id number] [place] [address] 27530- 1146 Apr, Chronic pain G89.29 [facility] [id number] [place] [address] 78863- 7547 Apr, [facility] [id number] [place] [address] 36201- 3635 Mar, [facility] [id number] [place] [address] 94699- 9697 Mar, Insomnia, unspecified type G47.00 [facility] [id number] [place] [address] 44913- 2806 Mar, Chronic pain G89.29 [facility] [id number] [place] [address] 96589- 6935 Mar, [facility] [address], [place] [address]- 5242 Feb, [facility] [address], [place] [address]- 6948 Feb, [facility] [id number] [place] [address] 66638- 6606 Feb, [facility] [id number] [place] [address] 16952- 7979 Feb, [facility] [id number] [place] [address] 51036- 3513 Feb, [facility] [id number] [place] [address] 88524- 1164 29 Jan, 2016 [facility] [id number] [place] [address] 97811- 4706 26 Jan, 2015 [facility] [address], [place] [address]- 0657 20 Jan, 2015 [facility] [id number] [place] [address] 71961- 1437 13 Jan, 2015 [facility] [address], [place] [address]- 9048 12 Jan, 2016 [facility] [id number] [place] [address] 53698- 4977 07 Jan, 2015 Chronic pain G89.29 [facility] [address], [place] [address]- 2356 Jan, 2015 Chronic pain G89.29 and Fibromyalgia M79.7 [facility] [address], [place] [address]- 5343 Dec, Depression, unspecified depression type F32.9 and Generalized anxiety disorder 300.02 [facility] [address], [place] [address]- 7380 Dec, Dysthymia F34.1 ; Insomnia, unspecified type G47.00 and Chronic pain G89.29 [facility] [address] [facility] [id number] [place] [address] 16661- 5000 Dec, Chronic pain G89.29 [facility] [id number] [place] [address] 13070 2546 Dec, Insomnia, unspecified type G47.00 [facility] [address] [facility] [id number] [place] [address] 46784 2547 Dec, Fibromyalgia M79.7 and Chronic pain G89.29 [facility] [id number] [place] [address] 55526- 4786 Dec, [facility] [id number] [place] [address] 44212 2546 Dec, [facility] [id number] [place] [address] 63609- 2636 Dec, [facility] [id number] [place] [address] 15164 2546 Dec, [facility] [id number] [place] [address] 97037- 3910 Dec, Chronic pain G89.29 [facility] [id number] [place] [address] 41610 2549 Dec, [facility] [id number] [place] [address] 14468 2544 Dec, [facility] [id number] [place] [address] 72229 2546 Dec, [facility] [id number] [place] [address] 88339 2543 Dec, Chronic pain G89.29 and Dysthymia F34.1 [facility] [id number] [place] [address] 77977 2547 Nov, [facility] [id number] [place] [address] 55348- 8354 Nov, Hypokalemia E87.6 and Chronic pain G89.29 [facility] [address] 12772- 5829 Nov, Back pain M54.9 and Pain in right knee M25.561 [facility] [address] 42572- 9122 Nov, [facility] [address] 08041- 9081 Nov, Chronic pain G89.29 [facility] [address] 49103- 7247 Nov, Chronic pain G89.29 ; Weight loss R63.4 ; Bone pain M89.8X9 and Insomnia, unspecified type G47.00 [facility] [address] 87664- 1386 Nov, Chronic pain G89.29 [facility] [address] 62798- 7792 Nov, Chronic pain G89.29 [facility] [address] 88313- 4293 30 Oct, 2015 Chronic pain G89.29 [facility] [id number] [place] [address] 06162- 5381 Oct, UTI symptoms R39.9 [facility] [id number] [place] [address] 52855- 5628 27 Oct, 2015 Chronic pain G89.29 [facility] [address] 36474- 2528 20 Oct, 2015 Chronic pain G89.29 [facility] [id number] [place] [address] 97776- 7962 13 Oct, 2015 Chronic pain G89.29 [facility] [address] 77945- 9805 Oct, Right upper quadrant abdominal pain R10.11 [facility] [address], [place] [address]- 2237 Oct, Chronic pain G89.29 [facility] [address], [place] [address]- 1801 Oct, [facility] [id number] [place] [address] 97436- 3910 September, Chronic pain G89.29 [facility] [id number] [place] [address] 61785- 3015 September, Dysuria R30.0 and Urinary tract infection without hematuria , site unspecified N39.0 [facility] [id number] [place] [address] 58625- 5920 September, [facility] [id number] [place] [address] 52980- 9323 September, Dysuria R30.0 [facility] [id number] [place] [address] 02230- 6516 September, Chronic pain G89.29 [facility] [id number] [place] [address] 31199- 6590 September, Chronic pain G89.29 and Essential hypertension I10 [facility] [address], [place] [address] September, [facility] [id number] [place] [address] 75237- 4336 September, [facility] [id number] [place] [address] 76088- 5194 September, [facility] [id number] [place] [address] 27616- 8023 Aug, UTI symptoms R39.9 [facility] [address] [address] Aug, Dysuria R30.0 [facility] [id number], [place] [address] Aug, [facility] [id number] [place] [address] 74685- 1403 Aug, [facility] [id number] [place] [address] 82941- 5919 Aug, [facility] [id number] [place] [address] 79147- 0446 Aug, Chronic pain G89.29 [facility] [id number] [place] [address] 24979- 4006 Aug, Dysthymia F34.1 [facility] [id number] [place] [address] 49356- 2752 Aug, Conjunctivitis, unspecified conjunctivitis type, unspecified laterality H10.9 [facility] [id number] [place] [address] 67925- 1626 Jul, Chronic pain G89.29 ; Back pain M54.9 ; Tobacco abuse Z72.0 and Weight decrease R63.4 [facility] [id number] [place] [address] 56217- 9156 Jul, [facility] [id number] [place] [address] 80447- 8404 Jul, [facility] [id number] [place] [address] 75506- 1298 24 Jul, 2015 Chronic pain G89.29 [facility] [address] [address], [place] [address] Jul, [facility] [id number] [place] [address] 48123- 4919 Jul, [facility] [id number] [place] [address] 91584- 0153 Jul, [facility] [id number] [place] [address] 54770- 0446 17 Jul, 2015 [facility] [address], [place] [address] 2414 17 Jul, 2015 Chronic pain G89.29 [facility] [address], [place] [address] 0802 16 Jul, 2015 Chronic pain G89.29 [facility] [id number] [place] [address] 91402- 9841 15 Jul, 2015 [facility] [id number] [place] [address] 85262- 3677 Jul, [facility] [id number] [place] [address] 36854- 8732 Jul, [facility] [id number] [place] [address] 70826- 7575 Jul, [facility] [id number] [place] [address] 44473- 3797 Jun, [facility] [id number] [place] [address] 01155- 1301 Jun, Depression, unspecified depression type F32.9 [facility] [id number] [place] [address] 12476- 0679 Jun, Pain in right knee M25.561 [facility] [id number] [place] [address] 77183- 2110 24 Jun, 2015 Chronic pain G89.29 ; Back pain M54.9 ; Bone pain M89.8X9 and Weight loss R63.4 [facility] [id number] [place] [address] 55348- 6747 Jun, [facility] [id number] [place] [address] 19249- 2851 May, [facility] [address], [place] [address]- 4749 May, UTI symptoms R39.9 ; Pain in right knee M25.561 ; Right low back pain, with sciatica presence unspecified M54.5 ; Right foot pain M79.671 ; Hypokalemia E87.6 and Screening, lipid Z13.220 [facility] [id number] [place] [address] 52854- 6723 May, [facility] [id number] [place] [address] 71466- 5717 May, [facility] [id number] [place] [address] 22197- 0127 Mar, [facility] [id number] [place] [address] 37810- 8879 Mar, [facility] [id number] [place] [address] 35161- 6304 Mar, Hypokalemia E87.6 [facility] [address] [address]- 9330 Mar, Pain in right leg M79.604 ; Encounter for immunization Z23 ; Pain in right knee M25.561 and Hypokalemia E87.6 [facility] [id number] [place] [address] 91566- 9530 Jan, [facility] [id number] [place] [address] 20120- 0523 Jan, [facility] [id number] [place] [address] 99822 2549 Jan, Abdominal pain, generalized 789.07 [facility] [id number] [place] [address] 19137 2545 Jan, Abdominal pain, generalized 789.07 [facility] [id number] [place] [address] 37781- 0040 Dec, [facility] [id number] [place] [address] 75913- 7203 Dec, [facility] [address], [place] [address]- 4946 Dec, [facility] [id number] [place] [address] 12961- 4071 Nov, Hallux valgus 735.0 and Hammertoe 735.4 [facility] [address], [place] [address]- 0926 Nov, [facility] [id number] [place] [address] 63268- 4077 Nov, Hallux valgus 735.0 and Hammer toe 735.4 [facility] [id number] [place] [address] 99831- 2926 Oct, [facility] [id number] [place] [address] 86879- 7036 Oct, [facility] [id number] [place] [address] 37419- 8034 Oct, Pre-op evaluation V72.84 [facility] [address], [place] [address]- 0493 Oct, [facility] [id number] [place] [address] 00952- 8904 Oct, [facility] [address], [place] [address]- 0370 September, [facility] [address], [place] [address] 2546 September, [facility] [id number], [place] [address]- 3246 September, Hallux valgus (acquired) 735.0 and Other hammer toe ( acquired) 735.4 [facility] [address], [place] [address]- 2546 Aug, [facility] [id number] [place] [address] 97186- 6447 Aug, [facility] [place] [facility] [address] [id number] [place] [address]- 8083 Jul, [facility] [place] [facility] [address] [id number] [place] [address]- 1202 Jul, [facility] [place] [facility] [address] [id number] [place] [address]- 5522 Jul, [facility] [place] [facility] [address] [id number] [place] [address]- 9628 Jul, [facility] [place] [facility] [address] [id number] [place] [address]- 0040 Jul, [facility] [place] [facility] [address] [id number] [place] [address]- 3344 Jul, [facility] [place] [facility] [address] [facility] [id number] [place] [address]- 1946 Jul, [facility] [place] [facility] [address] [id number] [place] [address]- 1422 Jul, [facility] [place] [facility] [address] [id number] [place] [address]- 5995 Jun, [facility] [place] [facility] [address] [facility] [id number] [place] [address]- 9197 Jun, [facility] [place] [facility] [address] [id number] [place] [address]- 6386 Jun, 2014 [facility] [place] [facility] [address] [id number] [place] [address]- 3016 Jun, [facility] [place] [facility] [address] [id number] [place] [address]- 2476 Jun, [facility] [place] [facility] [address] [id number] [place] [address]- 9424 Jun, [facility] [place] [facility] [address] [facility] [id number] [place] [address]- 8040 Jun, [facility] [place] [facility] [address] [id number] [place] [address]- 3281 Jun, [facility] [address] [id number] [place] [address]- 8625 Jun, [facility] [place] [facility] [address] [id number] [place] [address]- 2806 Jun, [facility] [place] [facility] [address] [id number] [place] [address]- 8826 May, [facility] [place] [facility] [address] [id number] [place] [address]- 1317 May, [facility] [place] [facility] [address] [id number] [place] [address]- 7202 May, [facility] [place] [facility] [address] [id number] [place] [address]- 0022 May, [facility] [place] [facility] [address] [id number] [place] [address]- 9020 May, [facility] [address] [id number] [place] [address]- 5956 May, [facility] [place] [facility] [address] [id number] [place] [address]- 4727 May, [facility] [place] [facility] [address] [id number] [place] [address]- 2016 May, [facility] [place] [facility] [address] [id number] [place] [address]- 7779 May, [facility] [place] [facility] [address] [id number] [place] [address]- 8881 May, [facility] [place] [facility] [address] [id number] [place] [address]- 7166 May, [facility] [place] [facility] [address] [id number] [place] [address]- 2346 May, [facility] [place] [facility] [address] [id number] [place] [address]- 2526 May, [facility] [place] [facility] [address] [id number] [place] [address]- 6845 May, [facility] [place] [facility] [address] [id number] [place] [address]- 4196 May, [facility] [place] [facility] [address] [id number] [place] [address]- 6315 May, [facility] [place] [facility] [address] [id number] [place] [address]- 2612 May, [facility] [place] [facility] [address] [id number] [place] [address]- 7232 May, [facility] [place] [facility] [address] [id number] [place] [address]- 0300 Apr, [facility] [place] [facility] [address] [id number] [place] [address]- 6664 Apr, [facility] [place] [facility] [address] [id number] [place] [address]- 8890 Apr, [facility] [place] [facility] [address] [id number] [place] [address]- 9127 Apr, [facility] [place] [facility] [address] [id number] [place] [address]- 3951 Apr, [facility] [place] [facility] [address] [id number] [place] [address]- 7039 Apr, [facility] [place] [facility] [address] [id number] [place] [address]- 3340 Apr, [facility] [place] [facility] [address] [id number] [place] [address]- 1166 Apr, [facility] [place] [facility] [address] [id number] [place] [address]- 9029 Apr, [facility] [place] [facility] [address] [id number] [place] [address]- 0853 Mar, [facility] [place] [facility] [address] [id number] [place] [address]- 7359 Mar, [facility] [place] [facility] [address] [id number] [place] [address]- 8668 Mar, [facility] [place] [facility] [address] [id number] [place] [address]- 4783 Mar, [facility] [place] [facility] [address] [id number] [place] [address]- 2533 Mar, [facility] [place] [facility] [address] [id number] [place] [address]- 8942 Feb, [facility] [place] [facility] [address] [id number] [place] [address]- 9181 Feb, [facility] [place] [facility] [address] [id number] [place] [address]- 2824 Feb, [facility] [place] [facility] [address] [id number] [place] [address]- 0089 Feb, [facility] [place] [facility] [address] [id number] [place] [address]- 8661 Feb, [facility] [place] [facility] [address] [id number] [place] [address]- 1509 Feb, [facility] [place] [facility] [address] [id number] [place] [address]- 6625 Feb, [facility] [place] [facility] [address] [id number] [place] [address]- 0392 Feb, [facility] [place] [facility] [address] [id number], [place] [address]- 0704 Feb, [facility] [place] [facility] [address] [id number] 5061 Feb, [facility] [place] [facility] [address] [id number], [place] [address]- 8353 Feb, [facility] [place] [facility] [address] [id number] 5070 Feb, [facility] [place] [facility] [address] [id number] [place] [address]- 8011 07 Feb, 2013 [facility] [place] [facility] [address] [id number] [place] [address]- 0894 Feb, [facility] [place] [facility] [address] [id number] [place] [address]- 2122 Feb, 2013 [facility] [place] [facility] [address] [id number] [place] [address]- 9117 Feb, [facility] [place] [facility] [address] [id number] [place] [address]- 0858 Jan, 2013 [facility] [place] [facility] [address] [id number] [place] [address]- 0182 23 Jan, 2013 [facility] [place] [facility] [address] [id number] [place] [address]- 3771 20 Jan, 2014 [facility] [place] [facility] [address] [id number] [place] [address]- 0747 19 Jan, 2013 [facility] [place] [facility] [address] [id number] [place] [address]- 1693 11 Jan, 2014 [facility] [place] [facility] [address] [id number] [place] [address]- 9372 Jan, [facility] [place] [facility] [address] [id number] [place] [address]- 7718 Jan, [facility] [place] [facility] [address] [id number] [place] [address]- 4994 Jan, 2013 [facility] [place] [facility] [address] [id number] [place] [address]- 6088 Dec, [facility] [place] [facility] [address] [id number] [place] [address]- 2026 Dec, [facility] [place] [facility] [address] [id number] [place] [address]- 6214 Nov, [facility] [place] [facility] [address] [id number] [place] [address]- 2202 Nov, [facility] [place] [facility] [address] [id number] [place] [address]- 0115 Nov, [facility] [place] [facility] [address] [id number] [place] [address]- 5741 Nov, [facility] [place] [facility] [address] [id number] [place] [address]- 7320 Nov, [facility] [place] [facility] [address] [id number] [place] [address]- 4994 Nov, [facility] [place] [facility] [address] [id number] [place] [address]- 4590 Nov, [facility] [place] [facility] [address] [id number] [place] [address]- 5775 Nov, [facility] [place] [facility] [address] [id number] [place] [address]- 1714 Nov, [facility] [place] [facility] [address] [id number] [place] [address]- 0778 Oct, [facility] [place] [facility] [address] [id number] [place] [address]- 7658 Oct, [facility] [place] [facility] [address] [id number] [place] [address]- 6759 Oct, [facility] [place] [facility] [address] [id number] [place] [address]- 4735 Oct, [facility] [place] [facility] [address] [id number] [place] [address]- 4564 Oct, [facility] [place] [facility] [address] [id number] [place] [address]- 7642 Oct, [facility] [place] [facility] [address] [id number] [place] [address]- 6100 September, [facility] [place] [facility] [address] [id number] [place] [address]- 8198 September, [facility] [place] [facility] [address] [id number] [place] [address]- 7752 September, [facility] [address] [id number] [place] 7342 September, [facility] [address] [id number] [place] [address]- 5956 September, [facility] [address] [id number] [place] [address]- 8000 September, [facility] [address] [id number] [place] [address]- 2285 September, [facility] [address] [id number] [place] 8596 September, [facility] [address] [id number] [place] [address]- 9588 September, [facility] [address] [id number] [place] [address]- 6789 September, [facility] [address] [id number] [place] [address]- 0457 September, [facility] [address] [id number] [place] [address]- 3231 September, [facility] [address] [id number] [place] [address]- 6335 September, [facility] [address] [id number] [place] [address]- 7238 September, [facility] [address] [id number] [place] [address]- 4477 September, [facility] [place] [facility] [address] [id number] [place] 7713 September, [facility] [place] [facility] [address] [id number] [place] 5602 September, [facility] [address] [id number] [place] [address]- 0064 September, [facility] [place] [facility] [address] [id number] [place] [address]- 0099 September, [facility] [place] [facility] [address] [id number] [place] [address]- 5106 September, [facility] [place] [facility] [address] [id number] [place] [address]- 8138 Aug, [facility] [place] [facility] [address] [id number] [place] [address]- 7208 Aug, [facility] [place] [facility] [address] [id number] [place] [address]- 8668 Aug, [facility] [place] [facility] [address] [id number] [place] [address]- 3931 Aug, [facility] [place] [facility] [address] [id number] [place] [address]- 5392 Aug, [facility] [place] [facility] [address] [id number] [place] [address]- 4381 Aug, [facility] [place] [facility] [address] [id number] [place] [address]- 8460 Aug, [facility] [place] [facility] [address] [id number] [place] [address]- 6103 Aug, [facility] [place] [facility] [address] [id number] [place] [address]- 3144 Aug, [facility] [place] [facility] [address] [id number] [place] [address]- 8645 Aug, [facility] [place] [facility] [address] [id number] [place] [address]- 8707 Aug, [facility] [place] [facility] [address] [id number] [place] [address]- 9610 Aug, [facility] [place] [facility] [address] [id number] [place] [address]- 0967 Aug, [facility] [place] [facility] [address] [id number] [place] [address]- 6689 Aug, [facility] [place] [facility] [address] [id number] [place] [address]- 3815 Aug, [facility] [place] [facility] [address] [id number] [place] [address]- 8484 Jul, [facility] [place] [facility] [address] [id number] [place] [address]- 6719 Jul, [facility] [place] [facility] [address] [id number] [place] [address]- 1732 Jul, [facility] [place] [facility] [address] [id number] [place] [address]- 7953 Jul, [facility] [place] [facility] [address] [id number] [place] [address]- 3525 Jul, [facility] [place] [facility] [address] [id number] [place] [address]- 2154 Jul, [facility] [place] [facility] [address] [id number] [place] [address]- 0487 Jul, [facility] [place] [facility] [address] [id number] [place] [address]- 7410 Jul, [facility] [place] [facility] [address] [id number] [place] [address]- 2228 Jul, [facility] [place] [facility] [address] [id number] [place] [address]- 5229 Jul, [facility] [place] [facility] [address] [id number] [place] [address]- 9716 Jul, [facility] [place] [facility] [address] [id number] [place] [address]- 8295 Jul, [facility] [place] [facility] [address] [id number] [place] [address]- 7022 Jul, [facility] [place] [facility] [address] [id number] [place] [address]- 4403 Jul, [facility] [place] [facility] [address] [id number] [place] [address]- 1239 Jul, [facility] [place] [facility] [address] [id number] [place] [address]- 1722 Jun, [facility] [place] [facility] [address] [id number] [place] [address] Jun, [facility] [place] [facility] [address] [id number] [place] [address] Jun, [facility] [place] [facility] [address] [id number] [place] [address] Jun, [facility] [place] [facility] [address] [id number] [place] [address] Jun, [facility] [place] [facility] [address] [id number] [place] [address] Jun, [facility] [place] [facility] [address] [id number] [place] [address] May, [facility] [place] [facility] [address] [id number] [place] [address] May, [facility] [place] [facility] [address] [id number] [place] [address] May, [facility] [place] [facility] [address] [id number] [place] [address] 1992 May, [facility] [place] [facility] [address] [id number] [place] [address] May, [facility] [place] [facility] [address] [id number] [place] [address] May, [facility] [place] [facility] [address] [id number] [place] [address] May, [facility] [place] [facility] [address] [id number] [place] [address] May, [facility] [place] [facility] [address] [id number] [place] [address] May, [facility] [address] [id number] [place] [address] May, [facility] [place] [facility] [address] [id number] [place] [address] May, [facility] [place] [facility] [address] [id number] [place] [address] 1394 May, [facility] [place] [facility] [address] [id number] [place] [address] 78[address] May, [facility] [place] [facility] [address] [id number] [place] [address] May, [facility] [place] [facility] [address] [id number] [place] [address] May, [facility] [place] [facility] [address] [id number] [place] [address]- [address] Apr, [facility] [place] [facility] [address] [id number] [place] [address]- [address]26 Apr, [facility] [place] [facility] [address] [id number] [place] [address]67 Apr, [facility] [place] [facility] [address] [id number] [place] [address] 269[address] Apr, [facility] [place] [facility] [address] [id number] [place] [address] Apr, [facility] [place] [facility] [address] [id number] [place] [address] Apr, [facility] [place] [facility] [address] [id number] [place] [address]- [address] Apr, [facility] [place] [facility] [address] [id number] [place] [address] 8627 Apr, [facility] [place] [facility] [address] [id number] [place] [address] Apr, [facility] [place] [facility] [address] [id number] [place] [address] Apr, [facility] [address] [id number] [place] [address] Mar, [facility] [address] [id number] [place] [address] Mar, [facility] [address] [id number] [place] [address] Mar, [facility] [address] [id number] [place] [address] Mar, [facility] [address] [id number] [place] [address] 90[address] Mar, [facility] [address] [id number] [place] [address]- [address] Mar, [facility] [address] [id number] [place] [address] Mar, [facility] [address] [id number] [place] [address]- [address] Mar, [facility] [address] [id number] [place] [address] Mar, [facility] [place] [facility] [address] [id number] [place] [address] Mar, [facility] [address] [id number] [place] [address] Mar, [facility] [address] [id number] [place] [address] 365[address] Mar, [facility] [place] [facility] [address] [id number] [place] [address]- [address] Mar, [facility] [place] [facility] [address] [id number] [place] [address]- 64[address] Mar, [facility] [address] [id number] [place] [address]- [address] Mar, [facility] [place] [facility] [address] [id number] [place] [address]- [address] 18 Mar, 2013 [facility] [place] [facility] [address] [id number] [place] [address]- [address] Mar, [facility] [place] [facility] [address] [id number] [place] [address]- 47[address] Mar, [facility] [place] [facility] [address] [id number] [place] [address]- 48[address] Mar, [facility] [place] [facility] [address] [id number] [place] [address] Mar, [facility] [place] [facility] [address] [id number] [place] [address]- 65[address] Mar, [facility] [place] [facility] [address] [id number] [place] [address]- [address] Mar, [facility] [place] [facility] [address] [id number], [place] [address] Mar, [facility] [place] [facility] [address] [id number], [place] [address] Feb, [facility] [place] [facility] [address] [id number], [place] [address] Feb, [facility] [place] [facility] [address] [id number], [place] [address] Feb, [facility] [place] [facility] [address] [id number], [place] [address] 16 Feb, 2013 [facility] [place] [facility] [address] [id number], [place] [address] 15 Feb, 2013 [facility] [place] [facility] [address] [id number], [place] [address] Feb, [facility] [place] [facility] [address] [facility] [id number], [place] [address] Feb, [facility] [place] [facility] [address] [id number], [place] [address] Feb, [facility] [address] [id number] [place] [address] 2018 Feb, [facility] [place] [facility] [address] [id number] [place] [address] Feb, [facility] [place] [facility] [address] [id number] [place] [address]284 30 Jan, 2013 [facility] [place] [facility] [address] [id number] [place] [address] 1585 26 Jan, 2013 [facility] [place] [facility] [address] [id number] [place] [address]- 7884 24 Jan, 2013 [facility] [place] [facility] [address] [id number] [place] [address]- 6182 23 Jan, 2013 [facility] [place] [facility] [address] [id number] [place] [address]- 0880 17 Jan, 2013 [facility] [place] [facility] [address] [id number] [place] [address]- 1237 Dec, [facility] [place] [facility] [address] [id number] [place] [address]- 9391 Dec, [facility] [place] [facility] [address] [id number] [place] [address]- 5841 Dec, [facility] [place] [facility] [address] [id number] [place] [address]- 8331 15 Dec, 2012 [facility] [place] [facility] [address] [id number] [place] [address]- 1332 14 Dec, 2012 [facility] [place] [facility] [address] [id number] [place] [address]- 2832 Dec, [facility] [place] [facility] [address] [id number] [place] [address]- 9589 Dec, [facility] [place] [facility] [address] [id number] [place] [address]- 5618 Nov, [facility] [place] [facility] [address] [id number] [place] [address]- 2546 16 Nov, 2012 [facility] [address] [id number] [place] [address]- 7046 15 Nov, 2012 [facility] [place] [facility] [address] [id number] [place] [address]- 2546 05 Nov, 2012 [facility] [address] [id number] [place] [address]- 2546 Nov, [facility] [place] [facility] [address] [id number] [place] [address]- 8976 Oct, [facility] [address] [id number] [place] [address] 1966 Oct, [facility] [place] [facility] [address] [id number] [place] [address]- 2546 Oct, [facility] [address] [id number] [place] [address]- 9206 September, [facility] [address] [id number] [place] [address]- 9123 September, [facility] [address] [id number] [place] [address]- 8856 September, [facility] [address] [id number] [place] [address]- 6926 September, [facility] [place] [facility] [address] [id number] [place] [address]- 6466 September, [facility] [address] [id number] [place] [address]- 2546 September, [facility] [place] [facility] [address] [id number] [place] [address]- 2546 September, [facility] [place] [facility] [address] [id number] [place] [address]- 2546 Aug, [facility] [place] [facility] [address] [id number] [place] [address]- 4481 23 Aug, 2012 [facility] [place] [facility] [address] [id number] [place] [address]- 1743 11 Aug, 2012 [facility] [place] [facility] [address] [id number] [place] [address]- 4889 29 Jul, 2012 [facility] [place] [facility] [address] [id number] [place] [address]- 4793 27 Jul, 2012 [facility] [place] [facility] [address] [id number] [place] [address]- 0965 26 Jul, 2012 [facility] [place] [facility] [address] [id number] [place] [address]- 4874 20 Jul, 2012 [facility] [place] [facility] [address] [id number] [place] [address]- 0977 18 Jul, 2012 [facility] [place] [facility] [address] [facility] [id number] [place] [address]- 0651 18 Jul, 2012 [facility] [place] [facility] [address] [id number] [place] [address]- 5135 13 Jul, 2012 [facility] [place] [facility] [address] [id number] [place] [address]- 7521 28 Jun, 2012 [facility] [place] [facility] [address] [facility] [id number] [place] [address]- 3949 27 Jun, 2012 [facility] [place] [facility] [address] [facility] [id number] [place] [address]- 0435 22 Jun, 2012 [facility] [place] [facility] [address] [id number] [place] [address]- 7354 20 Jun, 2012 [facility] [place] [facility] [address] [id number] [place] [address]- 4787 15 Jun, 2012 [facility] [place] [facility] [address] [id number] [place] [address]- 0175 15 Jun, 2012 [facility] [place] [facility] [address] [facility] [id number] [place] [address]- 3066 13 Jun, 2012 [facility] [place] [facility] [address] [id number] [place] [address]- 3566 Jun, [facility] [address] [id number] [place] [address]- 1136 Jun, [facility] [place] [facility] [address] [id number] [place] [address]- 2546 Jun, [facility] [address] [id number] [place] [address]- 9466 May, [facility] [place] [facility] [address] [id number] [place] [address] 2540 May, [facility] [address] [id number] [place] [address]- 3816 May, [facility] [address] [id number] [place] [address]- 3151 May, [facility] [address] [id number] [place] [address]- 0491 May, [facility] [address] [id number] [place] [address]- 5256 May, [facility] [address] [id number] [place] [address]- 5306 31 Apr, 2012 [facility] [address] [id number] [place] [address] 2546 31 Apr, 2012 [facility] [address] [id number] [place] [address] 2546 Apr, [facility] [place] [facility] [address] [id number] [place] [address] 254 28 Apr, 2012 [facility] [place] [facility] [address] [id number] [place] [address] 2546 26 Apr, 2012 [facility] [place] [facility] [address] [id number] [place] [address]- 2546 20 Apr, 2012 [facility] [place] [facility] [address] [id number] [place] [address]- 7899 Apr, [facility] [place] [facility] [address] [id number] [place] [address]- 9170 Mar, [facility] [place] [facility] [address] [id number] [place] [address]- 3463 Mar, [facility] [place] [facility] [address] [facility] [id number] [place] [address]- 9669 Mar, [facility] [place] [facility] [address] [id number] [place] [address]- 1773 Mar, [facility] [place] [facility] [address] [id number] [place] [address]- 9110 Mar, [facility] [place] [facility] [address] [id number], [place] [address]- 9804 Mar, [facility] [place] [facility] [address] [id number] [place] [address]- 2284 Mar, [facility] [place] [facility] [address] [id number], [place] [address]- 0153 Mar, [facility] [place] [facility] [address] [id number], [place] [address]- 6752 Mar, [facility] [place] [facility] [address] [id number], [place] [address]- 0732 Mar, [facility] [place] [facility] [address] [id number], [place] [address]- 1005 Mar, [facility] [place] [facility] [address] [id number], [place] [address]- 2520 Mar, [facility] [place] [facility] [address] [id number], [place] [address]- 5546 Mar, [facility] [place] [facility] [address] [facility] [id number], [place] [address]- 7094 Mar, [facility] [place] [facility] [address] [facility] [id number], [place] [address]- 1572 Mar, [facility] [place] [facility] [address] [id number] [place] [address]- 9826 Mar, [facility] [place] [facility] [address] [id number] [place] [address]- 2549 Mar, [facility] [place] [facility] [address] [id number] [place] [address]- 9717 Feb, [facility] [place] [facility] [address] [id number] [place] [address]- 6090 Feb, 2011 [facility] [place] [facility] [address] [id number] [place] [address]- 6792 Feb, [facility] [place] [facility] [address] [id number] [place] [address]- 1745 Feb, [facility] [place] [facility] [address] [id number] [place] [address]- 7206 Feb, [facility] [place] [facility] [address] [id number] [place] [address]- 7369 Feb, [facility] [place] [facility] [address] [id number] [place] [address]- 8882 Feb, [facility] [place] [facility] [address] [id number] [place] [address]- 0707 Feb, [facility] [place] [facility] [address] [facility] [id number] [place] [address]- 1421 Feb, [facility] [place] [facility] [address] [id number] [place] [address]- 4234 Feb, [facility] [place] [facility] [address] [id number] [place] [address]- 1224 Feb, [facility] [place] [facility] [address] [id number] [place] [address]- 7260 27 Jan, 2011 [facility] [place] [facility] [address] [id number] [place] [address]- 8410 25 Jan, 2012 [facility] [place] [facility] [address] [id number] [place] [address]- 4146 13 Jan, 2012 [facility] [place] [facility] [address] [id number] [place] [address]- 2210 12 Jan, 2012 [facility] [place] [facility] [address] [id number] [place] [address]- 9490 Jan, [facility] [place] [facility] [address] [id number] [place] [address]- 3797 Dec, [facility] [place] [facility] [address] [id number] [place] [address]- 6702 Dec, [facility] [place] [facility] [address] [id number] [place] [address]- 9941 Dec, [facility] [place] [facility] [address] [id number] [place] [address]- 6246 Dec, [facility] [place] [facility] [address] [id number] [place] [address]- 7934 Dec, [facility] [place] [facility] [address] [id number] [place] [address]- 1996 Dec, [facility] [place] [facility] [address] [id number] [place] [address]- 9327 Dec, [facility] [place] [facility] [address] [id number] [place] [address]- 9658 Dec, [facility] [place] [facility] [address] [id number] [place] [address]- 4822 Nov, [facility] [place] [facility] [address] [id number] [place] [address]- 2321 Nov, [facility] [place] [facility] [address] [id number] [place] [address]- 6647 Nov, [facility] [place] [facility] [address] [id number] [place] [address]- 7011 Nov, [facility] [place] [facility] [address] [id number] [place] [address]- 6354 Nov, [facility] [place] [facility] [address] [id number] [place] [address]- 1439 Oct, [facility] [address] [id number] [place]10 Oct, [facility] [place] [facility] [address] [id number] [place] [address]- 8459 September, [facility] [address] [id number] [place] [address]- 5726 September, [facility] [place] [facility] [address] [id number] [place] [address]- 7501 September, [facility] [address] [id number] [place] [address]- 8236 September, [facility] [place] [facility] [address] [id number] [place] [address]- 3573 September, [facility] [address] [id number] [place] [address]- 5585 September, [facility] [place] [facility] [address] [id number] [place] [address]- 8725 September, [facility] [place] [facility] [address] [id number] [place] [address]- 0744 September, [facility] [place] [facility] [address] [id number] [place] [address]- 9141 September, [facility] [place] [facility] [address] [id number] [place] [address]- 5764 September, [facility] [place] [facility] [address] [id number] [place] [address]- 3983 September, [facility] [place] [facility] [address] [id number] [place] [address]- 1652 September, [facility] [place] [facility] [address] [id number] [place] [address]- 2704 September, [facility] [place] [facility] [address] [id number] [place] [address]- 4948 September, [facility] [place] [facility] [address] [id number] [place] [address]- 5825 24 Aug, 2011 [facility] [address] [id number] [place] [address]- 5090 20 Aug, 2011 [facility] [address] [id number] [place] [address]- 4426 13 Aug, 2011 [facility] [address] [id number] [place] [address]- 9661 11 Aug, 2011 [facility] [address] [id number] [place] [address]- 6154 23 Jul, 2011 [facility] [address] [id number] [place] [address]- 8851 13 Jul, 2011 [facility] [address] [id number] [place] [address]- 4093 13 Jul, 2011 [facility] [address] [id number] [place] [address]- 7869 28 Jun, [address] [facility] [address] [id number] [id number] 26 Jun, 2011 [facility] [address] [id number] [place] [address]- 2416 13 Jun, 2011 [facility] [address] [id number] [place] [address]- 2631 10 Jun, 2011 [facility] [address] [id number] [place] [address]- 0766 07 Jun, 2011 [facility] [address] [id number] [place] [address]- 9796 07 Jun, 2011 [facility] [place] [facility] [address] [id number] [place] [address]- 0476 03 Jun, 2011 [facility] [place] [facility] [address] [id number] [place] [address]- 7676 02 Jun, 2011 [facility] [place] [facility] [address] [id number] [place] [address]- 7542 31 May, 2011 [facility] [address] [id number] [place] [address]- 2910 30 May, 2011 [facility] [address] [id number] [place] [address]- 9132 May, [facility] [address] [id number] [place] [address]- 0554 May, [facility] [address] [id number] [place] [address]- 2043 May, [facility] [address] [id number] [place] [address]- 1946 May, [facility] [address] [id number] [place] [address]- 7204 May, [facility] [address] [id number] [place] [address]- 6084 May, [facility] [place] [facility] [address] [id number] [place] [address]- 8114 May, [facility] [address] [id number] [place] [address]- 5919 May, [facility] [place] [facility] [address] [id number] [place] [address]- 5509 May, [facility] [address] [id number], [place] [address]- 4440 May, [facility] [place] [facility] [address] [id number], [place] [address]- 2465 May, [facility] [place] [facility] [address] [id number] [place] [address]- 3861 May, [facility] [place] [facility] [address] [id number] [place] [address]- 2914 30 Apr, 2011 [facility] [place] [facility] [address] [id number] [place] [address]- 4105 16 Apr, 2011 [facility] [place] [facility] [address] [id number] [place] [address]- 8959 05 Apr, 2011 [facility] [place] [facility] [address] [id number] [place] [address]- 6176 17 Mar, 2011 [facility] [place] [facility] [address] [id number] [place] [address] 2546 Mar, [facility] [place] [facility] [address] [id number] [place] [address]- 5066 31 Feb, 2011 [facility] [place] [facility] [address] [id number] [place] [address] 2546 26 Feb, 2011 [facility] [place] [facility] [address] [id number] [place] [address]- 9085 Feb, [facility] [place] [facility] [address] [id number] [place] [address]- 1052 20 Feb, 2011 [facility] [place] [facility] [address] [id number] [place] [address]- 5857 13 Feb, 2011 [facility] [place] [facility] [address] [id number] [place] [address]- 5569 28 Apr, 2010 [facility] [place] [facility] [address] [id number] [place] [address] 2546 22 Apr, 2010 [facility] [place] [facility] [address] [facility] [id number] [place] [address] 2544 16 Apr, 2010 [facility] [place] [facility] [address] [id number] [place] [address] 2546 15 Apr, 2010 [facility] [place] [facility] [address] [id number] [place] [address] 2546 15 Apr, 2010 [facility] [place] [facility] [address] [id number] [place] [address] 2546 Apr, [facility] [place] [facility] [address] [id number] [place] [address] 2546 24 Mar, 2010 [facility] [place] [facility] [address] [id number] [place] [address] 2545 17 Mar, 2010 [facility] [address], [place] [address]- 6186 17 Mar, 2010 [facility] [address], [place] [address]- 7347 28 Feb, 2010 [facility] [address], [place] [address]- 3338 Feb, [facility] [id number] [place] [address]- 7140 Feb, [facility] [address], [place] [address]- 0366 Feb, [facility] [id number] [place] [address] 8[address]- 0694 Dec, [facility] [address], [place] [address]- 9449 Dec, [facility] [id number] [place] [address] 34[address]- 1219 Oct, [facility] [address], [place] [address]- 8134 Mar, [facility] [address], [place] [address]- 3741 Mar, [facility] [address], [place] [address]- 1004 September, IMMUNIZATIONS No Known Immunizations SOCIAL HISTORY [...]
--- OUTSIDE RECORDS SUMMARY | 2018-09-19 09:24 | XMS REPORT ---
Author Author Migration, Doctor Organization [facility] Address Unknown Phone Unavailable Care Team Providers Care [employer] Consultant Name Role Phone Migration, Doctor Unavailable Unavailable PROBLEMS Type Condition ICD9-CM Code [id number] Code Onset Dates Condition Status SNOMED Code Problem Hypokalemia E87.6 Active 262856854 Problem Generalized anxiety disorder F41.1 Active 12880080 Problem Pain in right knee M25.561 Active 09918144 Problem Right low back pain, with sciatica presence unspecified M54.5 Active 547123291 Problem Right foot pain M79.671 Active 22373560 Problem UTI symptoms R39.9 Active 73226575 Problem Essential hypertension I10 Active 38927347 Problem Gastroesophageal reflux disease without esophagitis K21.9 Active 707708628 Problem Weight decrease R63.4 Active 618362157 Problem Depression, unspecified depression type F32.9 Active 54195873 Problem Right upper quadrant abdominal pain R10.11 Active 421515129 Problem Tobacco abuse Z72.0 Active 69767457 Problem Insomnia, unspecified type G47.00 Active 318468175 Problem Weight loss R63.4 Active 116569273 Problem Post-traumatic stress disorder, chronic F43.12 Active 71462172 Problem Pulmonary emphysema, unspecified emphysema type J43.9 Active 08678613 Problem Neuropathy G62.9 Active 062248765 Problem Anxiety F41.9 Active 87623963 Problem Other emphysema J43.8 Active 60611517 Problem Other chronic pain G89.29 Active 28195608 Problem Chronic pain G89.29 Active 74582129 Problem Opioid use disorder, moderate, dependence F11.20 Active 50576290 Problem Back pain M54.9 Active 405610764 Problem Bone pain M89.8X9 Active 25356926 Problem Panic attacks F41.0 Active 136674887 Problem Kidney stones N20.0 Active 51341222 Problem Renal calculus, right N20.0 Active 20204364 Problem Generalized abdominal pain R10.84 Active 314690749 ALLERGIES No Information ENCOUNTERS Encounter Location Date Diagnosis [facility] [place] [address], [place] [address] Feb, [facility] [place] [id number] [place] [address] 22454- 2615 Dec, [facility] [place] [id number] [place] [address] 65439- 7980 Dec, [facility] [place] [id number] [place] [address] 42402- 2331 Dec, Medicare welcome exam Z00.00 [facility] [place] [id number] [place] [address] 14142- 2389 17 Nov, 2017 Opioid use disorder, moderate, dependence F11.20 [facility] [place] [id number] [place] [address] 77074- 6077 16 Nov, 2017 Pelvic pain R10.2 ; Acute pyelonephritis N10 and Essential hypertension I10 [facility] [place] [id number] [place] [address] 47272- 7519 28 Oct, 2017 Medicare welcome exam Z00.00 [facility] [place] [id number] [place] [address] 98284- 1732 Oct, Gross hematuria R31.0 ; Urinary tract infection without hematuria, site unspecified N39.0 and Weakness R53.1 [facility] [place] [id number] [place] [address] 74178- 3703 Oct, [facility] [place] [id number] [place] [address] 07292- 2479 Oct, [facility] [place] [id number] [place] [address] 54641- 9503 Oct, Medicare welcome exam Z00.00 [facility] [place] [id number] [place] [address] 83359- 8538 September, Back pain M54.9 and Right anterior knee pain M25.561 [facility] [place] [id number] [place] [address] 16761- 0137 September, [facility] [place] [address], [place] [address] 0591 September, [facility] [place] [id number] [place] [address] 41289- 4708 September, Essential hypertension I10 [facility] [place] [id number] [place] [address] 68678- 7372 September, [facility] [place] [id number] [place] [address] 49408- 8531 September, RLQ abdominal pain R10.31 ; Low back pain M54.5 and Other chronic pain G89.29 [facility] [place] [id number] [place] [address] 11195- 4442 Aug, Medicare welcome exam Z00.00 [facility] [place] [id number] [place] [address] 30801- 9277 Aug, [facility] [place] [id number] [place] [address] 75780- 3627 Aug, Acute pyelonephritis N10 and Medicare welcome exam Z00.00 [facility] [id number] [place] [address] 77507 -9414 Aug, Dysuria R30.0 and Acute pyelonephritis N10 [facility] [place] [address], [place] [address]- 4402 Aug, [facility] [place] [id number] [place] [address] 95126- 1866 Aug, [facility] [place] [id number] [place] [address] 65038- 2661 Aug, [facility] [place] [id number] [place] [address] 53525- 4745 Aug, [facility] [place] [address], [place] [address]- 6338 Jul, [facility] [place] [id number] [place] [address] 17658- 5855 Jul, Renal calculus, right N20.0 and Medicare welcome exam Z00.00 [facility] [id number] [place] [address] 07964 -4119 Jul, Dysuria R30.0 and Renal calculus, right N20.0 [facility] [id number] [place] [address] 85960- 7825 Jul, Medicare welcome exam Z00.00 [facility] [id number] [place] [address] 28573- 7137 Jun, Gastroesophageal reflux disease without esophagitis K21.9 and Generalized abdominal pain R10.84 [facility] [id number] [place] [address] 57400- 5190 Jun, Medicare welcome exam Z00.00 [facility] [id number] [place] [address] 04149- 3791 Jun, [facility] [id number] [place] [address] 69040- 0690 Jun, Medicare welcome exam Z00.00 and Encounter for screening mammogram for malignant neoplasm of breast Z12.31 [facility] [id number] [place] [address] 00942- 4441 Jun, Chronic pain G89.29 [facility] [id number] [place] [address] 08633- 0534 May, [facility] [id number] [place] [address] 83414- 5655 May, Pelvic pain R10.2 [facility] [id number] [place] [address] 89724- 6987 May, Pelvic pain R10.2 [facility] [id number] [place] [address] 05381 -5694 May, Renal calculus, right N20.0 [facility] [place] [id number] [place] [address] 06266- 0743 May, Hematuria, unspecified type R31.9 and Nephrolithiasis N20.0 [facility] [id number] [place] [address] 37199 -3265 May, Dysuria R30.0 and Nephrolithiasis N20.0 [facility] [place] [id number] [place] [address] 34814- 9981 May, [facility] [id number] [place] [address] 46859 -5520 May, Abdominal pain R10.9 and Kidney stone N20.0 [facility] [id number] [place] [address] 88422- 9196 May, [facility] [id number] [place] [address] 18902- 1691 May, Chronic pain G89.29 and Panic attacks F41.0 [facility] [id number] [place] [address] 72496- 8906 May, Urinary tract infection without hematuria, site unspecified N39.0 [facility] [id number] [place] [address] 89885- 2185 Apr, Right lower quadrant abdominal pain R10.31 and Abnormal serum lipase level R74.8 [facility] [id number] [place] [address] 37981- 3574 Apr, Recurrent urinary tract infection N39.0 [facility] [id number] [place] [address] 78255- 9554 Apr, UTI symptoms R39.9 ; Recurrent urinary tract infection N39.0 and Pelvic pain R10.2 [facility] [id number] [place] [address] 66520- 0716 Apr, Chronic pain G89.29 and Panic attacks F41.0 [facility] [id number] [place] [address] 98916- 9987 Apr, Dysuria R30.0 [facility] [id number] [place] [address] 61348- 7520 Apr, [facility] [place] [id number] [place] [address] 47086- 8245 Apr, Dysuria R30.0 and Urinary tract infection without hematuria , site unspecified N39.0 [facility] [id number] [place] [address] 98227- 5383 Mar, UTI symptoms R39.9 [facility] [id number] [place] [address] 46955- 9086 Mar, [facility] [id number] [place] [address] 43309- 5315 Mar, Panic attacks F41.0 and Chronic pain G89.29 [facility] [address] 19663- 7256 Mar, [facility] [id number] [place] [address] 99968- 5535 Mar, Dysuria R30.0 [facility] [id number] [place] [address] 80273- 8332 Mar, Dysuria R30.0 [facility] [id number] [place] [address] 82631- 5628 Feb, Chronic pain G89.29 ; Shortness of breath R06.02 ; Weight loss R63.4 ; Encounter for immunization Z23 ; Bone pain M89.8X9 ; Right anterior knee pain M25.561 and Cough R05 [facility] [id number] [place] [address] 15366- 6700 Feb, Shortness of breath R06.02 [facility] [id number] [place] [address] 38160- 5173 Feb, [facility] [place] [id number] [place] [address] 28354- 0415 Feb, Panic attacks F41.0 and Chronic pain G89.29 [facility] [address] 05941- 7811 Feb, [facility] [address] 04966- 0096 04 Feb, 2017 Panic attacks F41.0 ; Shortness of breath R06.02 and Encounter for immunization Z23 [facility] [address] 68049- 7407 Jan, [facility] [address] 46994- 4857 15 Jan, 2017 Anxiety F41.9 and Chronic pain G89.29 [facility] [address] 25153- 0500 Dec, Anxiety F41.9 and Chronic pain G89.29 [facility] [address] 36956- 6355 Nov, Chronic pain G89.29 [facility] [address] 03497- 8890 Nov, Anxiety F41.9 [facility] [address] 21329- 5198 Nov, Chronic pain G89.29 ; Essential hypertension I10 and Other emphysema J43.8 [facility] [id number] [place] [address] 40467- 3792 Oct, Anxiety F41.9 [facility] [address] 72569- 5852 Oct, [facility] [address] 78961- 7885 Oct, Chronic pain G89.29 [facility] [address] 37505- 5351 September, Recurrent UTI N39.0 ; Neuropathy G62.9 and Anxiety F41.9 [facility] [place] [id number] [place] [address] 23018- 5127 September, [facility] [place] [id number] [place] [address] 54872- 5340 September, Chronic pain G89.29 [facility] [place] [id number] [place] [address] 99935- 2158 September, [facility] [place] [address] 85031- 1460 Aug, Post-traumatic stress disorder, chronic F43.12 ; Chronic urinary tract infection N39.0 ; Gastroesophageal reflux disease without esophagitis K21.9 ; Chronic pain G89.29 ; Essential hypertension I10 and Tobacco abuse Z72.0 [facility] [id number] [place] [address] 55472 -0764 Aug, [facility] [place] [address] 25941- 6151 Aug, Chronic pain G89.29 [facility] [place] [address] 09923- 9107 Aug, Insomnia, unspecified type G47.00 [facility] [place] [id number] [place] [address] 82070- 5612 Aug, [facility] [place] [id number] [place] [address] 60890- 5326 Jul, Chronic pain G89.29 [facility] [place] [id number] [place] [address] 86665- 7083 Jul, [facility] [place] [address] 39696- 2060 Jul, [facility] [place] [id number] [place] [address] 82947- 3346 Jul, [facility] [place] [address] 26426- 3795 15 Jul, 2016 Recurrent UTI (urinary tract infection) N39.0 [facility] [place] [id number] [place] [address] 32351- 9906 14 Jul, 2016 [facility] [place] [id number] [place] [address] 13022- 9083 27 Jun, 2016 Chronic pain G89.29 [facility] [place] [id number] [place] [address] 06589- 9903 17 Jun, 2016 [facility] [place] [id number] [place] [address] 28126- 0235 Jun, [facility] [place] [id number] [place] [address] 45021- 8712 May, Chronic pain G89.29 [facility] [place] [id number] [place] [address] 21068- 3688 May, Weight loss R63.4 and Shortness of breath R06.02 [facility] [place] [id number] [place] [address] 95600- 5197 May, Chronic pain G89.29 ; Weight loss R63.4 and Tobacco abuse Z72.0 [facility] [place] [address] [place] [address] 90203- 5900 May, [facility] [place] [address] [place] [address] 50729- 4869 May, Hypoxia R09.02 [facility] [place] [id number] [place] [address] 19465- 7165 May, [facility] [place] [id number] [place] [address] 51200- 3981 May, Pulmonary emphysema, unspecified emphysema type J43.9 [facility] [address] [place] [address] 35420 -8496 May, [facility] [place] [id number] [place] [address] 35900- 5817 May, [facility] [place] [id number] [place] [address] 81261- 3868 May, [facility] [place] [address] 22011- 2876 May, Chronic pain G89.29 ; Encounter for immunization Z23 ; Right anterior knee pain M25.561 and Cough R05 [facility] [place] [address] 31355- 6083 Apr, Chronic pain G89.29 [facility] [place] [id number] [place] [address] 51978- 7889 Apr, [facility] [place] [address] 68672- 4514 Apr, Generalized anxiety disorder F41.1 and Depression, unspecified depression type F32.9 [facility] [address] 75453- 8508 Apr, Chronic pain G89.29 ; Hypokalemia E87.6 and Insomnia, unspecified type G47.00 [facility] [place] [id number] [place] [address] 20343- 5160 Apr, [facility] [place] [id number] [place] [address] 77087- 2518 Apr, Chronic pain G89.29 [facility] [place] [id number] [place] [address] 81437- 7883 Apr, [facility] [place] [id number] [place] [address] 04628- 6536 Mar, [facility] [place] [id number] [place] [address] 47786- 6537 Mar, Insomnia, unspecified type G47.00 [facility] [place] [id number] [place] [address] 65413- 2232 Mar, Chronic pain G89.29 [facility] [place] [id number] [place] [address] 57379- 5407 Mar, [facility] [place] [address], [place] [address]- 4701 Feb, [facility] [place] [address] [place] [address]- 3141 Feb, [facility] [place] [id number] [place] [address] 14332- 1761 Feb, [facility] [place] [id number] [place] [address] 22321- 2834 Feb, [facility] [place] [id number] [place] [address] 98500- 9981 Feb, [facility] [place] [id number] [place] [address] 16182- 6038 29 Jan, 2016 [facility] [place] [id number] [place] [address] 17339- 3971 26 Jan, 2015 [facility] [place] [address] [place] [address]- 6569 20 Jan, 2015 [facility] [place] [id number] [place] [address] 74307- 3686 13 Jan, 2015 [facility] [place] [address] [place] [address]- 9067 12 Jan, 2016 [facility] [place] [id number] [place] [address] 89312- 6319 07 Jan, 2015 Chronic pain G89.29 [facility] [place] [address] [place] [address]- 4829 Jan, 2015 Chronic pain G89.29 and Fibromyalgia M79.7 [facility] [place] [address] [place] [address]- 7879 Dec, Depression, unspecified depression type F32.9 and Generalized anxiety disorder 300.02 [facility] [place] [address] [place] [address]- 3615 Dec, Dysthymia F34.1 ; Insomnia, unspecified type G47.00 and Chronic pain G89.29 [facility] [place] [address] [facility] [id number] [place] [address] 80298- 1598 Dec, Chronic pain G89.29 [facility] [place] [id number] [place] [address] 03384 2546 Dec, Insomnia, unspecified type G47.00 [facility] [place] [address] [facility] [id number] [place] [address] 85667 2547 Dec, Fibromyalgia M79.7 and Chronic pain G89.29 [facility] [place] [id number] [place] [address] 36030- 2226 Dec, [facility] [place] [id number] [place] [address] 47006 2546 Dec, [facility] [place] [id number] [place] [address] 57423- 3862 Dec, [facility] [place] [id number] [place] [address] [id number] 2546 Dec, [facility] [place] [id number] [place] [address] [id number]- [id number] Dec, Chronic pain G89.29 [facility] [place] [id number] [place] [address] [id number] 2542 Dec, [facility] [place] [id number] [place] [address] [id number] 2544 Dec, [facility] [place] [id number] [place] [address] [id number] 2546 Dec, [facility] [place] [id number] [place] [address] [id number] 254 Dec, Chronic pain G89.29 and Dysthymia F34.1 [facility] [place] [id number] [place] [address] [id number] 2541 Nov, [facility] [place] [id number] [place] [address] 55212- [id number] Nov, Hypokalemia E87.6 and Chronic pain G89.29 [place] [address] 68608- 9951 Nov, Back pain M54.9 and Pain in right knee M25.561 [place] [address] 66505- 8369 Nov, [place] [address] 37034- 4904 Nov, Chronic pain G89.29 [place] [address] 41639- 3051 Nov, Chronic pain G89.29 ; Weight loss R63.4 ; Bone pain M89.8X9 and Insomnia, unspecified type G47.00 [place] [address] 29689- 7147 Nov, Chronic pain G89.29 [place] [address] 64482- 1443 Nov, Chronic pain G89.29 [place] [address] 96403- 9072 30 Oct, 2015 Chronic pain G89.29 [place] [id number] [place] [address] [id number]- [phone] Oct, UTI symptoms R39.9 [facility] [place] [id number] [place] [address] [id number]- [phone] 27 Oct, 2015 Chronic pain G89.29 [place] [address] 59385- 9316 20 Oct, 2015 Chronic pain G89.29 [place] [id number] [place] [address] [id number]- 6703 13 Oct, 2015 Chronic pain G89.29 [place] [address] 10316- 4203 Oct, Right upper quadrant abdominal pain R10.11 [facility] [place] [address] [address], [place] [address] Oct, Chronic pain G89.29 [facility] [place] [address], [place] [address] Oct, [facility] [place] [id number] [place] [address] 99356- 0045 September, Chronic pain G89.29 [facility] [place] [id number] [place] [address] 32805- 3176 September, Dysuria R30.0 and Urinary tract infection without hematuria , site unspecified N39.0 [facility] [place] [id number] [place] [address] 12056- 9478 September, [facility] [place] [id number] [place] [address] 16145- 7479 September, Dysuria R30.0 [facility] [place] [id number] [place] [address] 20751- 0397 September, Chronic pain G89.29 [facility] [place] [address] [place] [address] 69539- 8665 September, Chronic pain G89.29 and Essential hypertension I10 [facility] [place] [address], [place] [address] 6881 September, [facility] [place] [id number] [place] [address] 76235- 5620 September, [facility] [place] [id number] [place] [address] 15321- 9623 September, [facility] [place] [id number] [place] [address] 87314- 0913 Aug, UTI symptoms R39.9 [facility] [place] [address], [place] [address] 1061 Aug, Dysuria R30.0 [facility] [place] [address], [place] [address] 7131 Aug, [facility] [place] [id number] [place] [address] 53218- 8403 Aug, [facility] [place] [id number] [place] [address] 22031- 0703 Aug, [facility] [place] [id number] [place] [address] 02636- 7532 Aug, Chronic pain G89.29 [facility] [place] [id number] [place] [address] 47414- 4326 Aug, Dysthymia F34.1 [facility] [place] [id number] [place] [address] 46422- 3764 Aug, Conjunctivitis, unspecified conjunctivitis type, unspecified laterality H10.9 [facility] [place] [id number] [place] [address] 36204- 7631 Jul, Chronic pain G89.29 ; Back pain M54.9 ; Tobacco abuse Z72.0 and Weight decrease R63.4 [facility] [place] [id number] [place] [address] 94214- 3577 Jul, [facility] [place] [id number] [place] [address] 73640- 2147 Jul, [facility] [place] [id number] [place] [address] 83776- 6511 24 Jul, 2015 Chronic pain G89.29 [facility] [place] [address], [place] [address]- 7019 Jul, [facility] [place] [id number] [place] [address] 63890- 7037 Jul, [facility] [place] [id number] [place] [address] 56938- 2244 Jul, [facility] [place] [id number] [place] [address] 20290- 6779 17 Jul, 2015 [facility] [place] [address], [place] [address]- 2983 17 Jul, 2015 Chronic pain G89.29 [facility] [place] [address], [place] [address]- 6680 16 Jul, 2015 Chronic pain G89.29 [facility] [place] [id number] [place] [address] 19032- 8253 15 Jul, 2015 [facility] [place] [id number] [place] [address] 20199- 4471 Jul, [facility] [place] [id number] [place] [address] 54482- 2336 Jul, [facility] [place] [id number] [place] [address] 15094- 7796 Jul, [facility] [place] [id number] [place] [address] 42973- 1286 Jun, [facility] [place] [id number] [place] [address] 41069- 4432 Jun, Depression, unspecified depression type F32.9 [facility] [place] [id number] [place] [address] 42336- 9395 Jun, Pain in right knee M25.561 [facility] [place] [address] [place] [address] 99777- 7774 24 Jun, 2015 Chronic pain G89.29 ; Back pain M54.9 ; Bone pain M89.8X9 and Weight loss R63.4 [facility] [place] [id number] [place] [address] 52838- 4702 Jun, [facility] [place] [id number] [place] [address] 83599- 4912 May, [facility] [place] [address], [place] [address]- 2454 May, UTI symptoms R39.9 ; Pain in right knee M25.561 ; Right low back pain, with sciatica presence unspecified M54.5 ; Right foot pain M79.671 ; Hypokalemia E87.6 and Screening, lipid Z13.220 [facility] [place] [id number] [place] [address] 20530- 8599 May, [facility] [place] [id number] [place] [address] 92831- 2462 May, [facility] [place] [id number] [place] [address] 54256- 3265 Mar, [facility] [place] [id number] [place] [address] 93750- 5031 Mar, [facility] [place] [id number] [place] [address] 34415- 8050 Mar, Hypokalemia E87.6 [facility] [place] [address] 93511- 0293 Mar, Pain in right leg M79.604 ; Encounter for immunization Z23 ; Pain in right knee M25.561 and Hypokalemia E87.6 [facility] [place] [id number] [place] [address] 11073- 8124 Jan, [facility] [place] [id number] [place] [address] 33582- 5115 Jan, [facility] [place] [id number] [place] [address] 46828 2541 Jan, Abdominal pain, generalized 789.07 [facility] [place] [id number] [place] [address] 69829 2540 Jan, Abdominal pain, generalized 789.07 [facility] [place] [id number] [place] [address] 82514- 6169 Dec, [facility] [place] [id number] [place] [address] 94091- 7990 Dec, [facility] [place] [address], [place] [address]- 3896 Dec, [facility] [place] [id number] [place] [address] 09625- 4841 Nov, Hallux valgus 735.0 and Hammertoe 735.4 [facility] [place] [address], [place] [address]- 0206 Nov, [facility] [place] [id number] [place] [address] 41165- 4310 Nov, Hallux valgus 735.0 and Hammer toe 735.4 [facility] [place] [id number] [place] [address] 88533- 8216 Oct, [facility] [place] [id number] [place] [address] 58530- 8066 Oct, [facility] [place] [id number] [place] [address] 50246- 7488 Oct, Pre-op evaluation V72.84 [facility] [place] [address], [place] [address]- 5308 Oct, [facility] [place] [id number] [place] [address] 32922- 4746 Oct, [facility] [place] [address], [place] [address]- 4704 September, [facility] [place] [address], [place] [address] 2546 September, [facility] [place] [id number], [place] [address]- 0977 September, Hallux valgus (acquired) 735.0 and Other hammer toe ( acquired) 735.4 [facility] [place] [address], [place] [address]- 2546 Aug, [facility] [place] [id number] [place] [address] 19219- 0130 Aug, [facility] [place] [facility] [address] [id number] [place] [address]- 3020 Jul, [facility] [place] [facility] [address] [id number] [place] [address]- 2391 Jul, [facility] [place] [facility] [address] [id number] [place] [address]- 7412 Jul, [facility] [place] [facility] [address] [id number] [place] [address]- 9534 Jul, [facility] [place] [facility] [address] [id number] [place] [address]- 5001 Jul, [facility] [place] [facility] [address] [id number] [place] [address]- 4219 Jul, [facility] [place] [facility] [address] [facility] [id number] [place] [address]- 5033 Jul, [facility] [place] [facility] [address] [id number] [place] [address]- 5074 Jul, [facility] [place] [facility] [address] [id number] [place] [address]- 5758 Jun, [facility] [place] [facility] [address] [facility] [id number] [place] [address]- 8592 Jun, [facility] [place] [facility] [address] [id number] [place] [address]- 6357 Jun, 2014 [facility] [place] [facility] [address] [id number] [place] [address]- 5166 Jun, [facility] [place] [facility] [address] [id number] [place] [address]- 9540 Jun, [facility] [place] [facility] [address] [id number] [place] [address]- 6468 Jun, [facility] [place] [facility] [address] [facility] [id number] [place] [address]- 3341 Jun, [facility] [place] [facility] [address] [id number] [place] [address]- 1845 Jun, [facility] [address] [id number] [place] [address]- 2878 Jun, [facility] [place] [facility] [address] [id number] [place] [address]- 2146 Jun, [facility] [place] [facility] [address] [id number] [place] [address]- 0991 May, [facility] [place] [facility] [address] [id number] [place] [address]- 8075 May, [facility] [place] [facility] [address] [id number] [place] [address]- 0992 May, [facility] [place] [facility] [address] [id number] [place] [address]- 0588 May, [facility] [place] [facility] [address] [id number] [place] [address]- 8439 May, [facility] [address] [id number] [place] [address]- 5141 May, [facility] [place] [facility] [address] [id number] [place] [address]- 8011 May, [facility] [place] [facility] [address] [id number] [place] [address]- 6069 May, [facility] [place] [facility] [address] [id number] [place] [address]- 1646 May, [facility] [place] [facility] [address] [id number] [place] [address]- 5406 May, [facility] [place] [facility] [address] [id number] [place] [address]- 8236 May, [facility] [place] [facility] [address] [id number] [place] [address]- 6956 May, [facility] [place] [facility] [address] [id number] [place] [address]- 4609 May, [facility] [place] [facility] [address] [id number] [place] [address]- 5829 May, [facility] [place] [facility] [address] [id number] [place] [address]- 1957 May, [facility] [place] [facility] [address] [id number] [place] [address]- 6046 May, [facility] [place] [facility] [address] [id number] [place] [address]- 4536 May, [facility] [place] [facility] [address] [id number] [place] [address]- 1849 May, [facility] [place] [facility] [address] [id number] [place] [address]- 6322 Apr, [facility] [place] [facility] [address] [id number] [place] [address]- 7083 Apr, [facility] [place] [facility] [address] [id number] [place] [address]- 8398 Apr, [facility] [place] [facility] [address] [id number] [place] [address]- 1567 Apr, [facility] [place] [facility] [address] [id number] [place] [address]- 8566 Apr, [facility] [place] [facility] [address] [id number] [place] [address]- 3037 Apr, [facility] [place] [facility] [address] [id number] [place] [address]- 2561 Apr, [facility] [place] [facility] [address] [id number] [place] [address]- 4824 Apr, [facility] [place] [facility] [address] [id number] [place] [address]- 2614 Apr, [facility] [place] [facility] [address] [id number] [place] [address]- 9138 Mar, [facility] [place] [facility] [address] [id number] [place] [address]- 1455 Mar, [facility] [place] [facility] [address] [id number] [place] [address]- 0315 Mar, [facility] [place] [facility] [address] [id number] [place] [address]- 9139 Mar, [facility] [place] [facility] [address] [id number] [place] [address]- 6417 Mar, [facility] [place] [facility] [address] [id number] [place] [address]- 9980 Feb, [facility] [place] [facility] [address] [id number] [place] [address]- 6562 Feb, [facility] [place] [facility] [address] [id number] [place] [address]- 6648 Feb, [facility] [place] [facility] [address] [id number] [place] [address]- 9559 Feb, [facility] [place] [facility] [address] [id number] [place] [address]- 8311 Feb, [facility] [place] [facility] [address] [id number] [place] [address]- 3371 Feb, [facility] [place] [facility] [address] [id number] [place] [address]- 4325 Feb, [facility] [place] [facility] [address] [id number] [place] [address]- 1755 Feb, [facility] [place] [facility] [address] [id number], [place] [address]- 7268 Feb, [facility] [place] [facility] [address] [id number] 0547 Feb, [facility] [place] [facility] [address] [id number], [place] [address]- 9054 Feb, [facility] [place] [facility] [address] [id number] 5196 Feb, [facility] [place] [facility] [address] [id number] [place] [address]- 4262 07 Feb, 2013 [facility] [place] [facility] [address] [id number] [place] [address]- 3320 Feb, [facility] [place] [facility] [address] [id number] [place] [address]- 9834 Feb, 2013 [facility] [place] [facility] [address] [id number] [place] [address]- 4573 Feb, [facility] [place] [facility] [address] [id number] [place] [address]- 2835 Jan, 2013 [facility] [place] [facility] [address] [id number] [place] [address]- 3180 23 Jan, 2013 [facility] [place] [facility] [address] [id number] [place] [address]- 1031 20 Jan, 2014 [facility] [place] [facility] [address] [id number] [place] [address]- 6344 19 Jan, 2013 [facility] [place] [facility] [address] [id number] [place] [address]- 8672 11 Jan, 2014 [facility] [place] [facility] [address] [id number] [place] [address]- 5211 Jan, [facility] [place] [facility] [address] [id number] [place] [address]- 1982 Jan, [facility] [place] [facility] [address] [id number] [place] [address]- 5167 Jan, 2013 [facility] [place] [facility] [address] [id number] [place] [address]- 6709 Dec, [facility] [place] [facility] [address] [id number] [place] [address]- 5046 Dec, [facility] [place] [facility] [address] [id number] [place] [address]- 2738 Nov, [facility] [place] [facility] [address] [id number] [place] [address]- 4523 Nov, [facility] [place] [facility] [address] [id number] [place] [address]- 7673 Nov, [facility] [place] [facility] [address] [id number] [place] [address]- 5786 Nov, [facility] [place] [facility] [address] [id number] [place] [address]- 4749 Nov, [facility] [place] [facility] [address] [id number] [place] [address]- 2132 Nov, [facility] [place] [facility] [address] [id number] [place] [address]- 4207 Nov, [facility] [place] [facility] [address] [id number] [place] [address]- 9306 Nov, [facility] [place] [facility] [address] [id number] [place] [address]- 7120 Nov, [facility] [place] [facility] [address] [id number] [place] [address]- 7134 Oct, [facility] [place] [facility] [address] [id number] [place] [address]- 7996 Oct, [facility] [place] [facility] [address] [id number] [place] [address]- 9308 Oct, [facility] [place] [facility] [address] [id number] [place] [address]- 3495 Oct, [facility] [place] [facility] [address] [id number] [place] [address]- 8869 Oct, [facility] [place] [facility] [address] [id number] [place] [address]- 7339 Oct, [facility] [place] [facility] [address] [id number] [place] [address]- 1694 September, [facility] [place] [facility] [address] [id number] [place] [address]- 0708 September, [facility] [place] [facility] [address] [id number] [place] [address]- 2473 September, [facility] [address] [id number] [place] 0370 September, [facility] [address] [id number] [place] [address]- 2895 September, [facility] [address] [id number] [place] [address]- 3839 September, [facility] [address] [id number] [place] [address]- 2996 September, [facility] [address] [id number] [place] 2396 September, [facility] [address] [id number] [place] [address]- 8565 September, [facility] [address] [id number] [place] [address] September, [facility] [address] [id number] [place] [address] September, [facility] [address] [id number] [place] [address] September, [facility] [address] [id number] [place] [address] September, [facility] [address] [id number] [place] [address] September, [facility] [address] [id number] [place] [address] September, [facility] [place] [facility] [address] [id number] [place] [address] September, [facility] [place] [facility] [address] [id number] [place] [address] September, [facility] [address] [id number] [place] [address] September, [facility] [place] [facility] [address] [id number] [place] [address] September, [facility] [place] [facility] [address] [id number] [place] [address] September, [facility] [place] [facility] [address] [id number] [place] [address] Aug, [facility] [place] [facility] [address] [id number] [place] [address] Aug, [facility] [place] [facility] [address] [id number] [place] [address] Aug, [facility] [place] [facility] [address] [id number] [place] [address] Aug, [facility] [place] [facility] [address] [id number] [place] [address] Aug, [facility] [place] [facility] [address] [id number] [place] [address]- [address] Aug, [facility] [place] [facility] [address] [id number] [place] [address]- [address] Aug, [facility] [place] [facility] [address] [id number] [place] [address]- [address] Aug, [facility] [place] [facility] [address] [id number] [place] [address] Aug, [facility] [place] [facility] [address] [id number] [place] [address]- [address] Aug, [facility] [place] [facility] [address] [id number] [place] [address]- [address] Aug, [facility] [place] [facility] [address] [id number] [place] [address]- [address] Aug, [facility] [place] [facility] [address] [id number] [place] [address] 6869 Aug, [facility] [place] [facility] [address] [id number] [place] [address] Aug, [facility] [place] [facility] [address] [id number] [place] [address] Aug, [facility] [place] [facility] [address] [id number] [place] [address] Jul, [facility] [place] [facility] [address] [id number] [place] [address] Jul, [facility] [place] [facility] [address] [id number] [place] [address] Jul, [facility] [place] [facility] [address] [id number] [place] [address] Jul, [facility] [place] [facility] [address] [id number] [place] [address] Jul, [facility] [place] [facility] [address] [id number] [place] [address]- [address] Jul, [facility] [place] [facility] [address] [id number] [place] [address] Jul, [facility] [place] [facility] [address] [id number] [place] [address] Jul, [facility] [place] [facility] [address] [id number] [place] [address]- [address] Jul, [facility] [place] [facility] [address] [id number] [place] [address] Jul, [facility] [place] [facility] [address] [id number] [place] [address] Jul, [facility] [place] [facility] [address] [id number] [place] [address]- [address] Jul, [facility] [place] [facility] [address] [id number] [place] [address] Jul, [facility] [place] [facility] [address] [id number] [place] [address]- [address] Jul, [facility] [place] [facility] [address] [id number] [place] [address] Jul, [facility] [place] [facility] [address] [id number] [place] [address] Jun, [facility] [place] [facility] [address] [id number] [place] [address]- [address] Jun, [facility] [place] [facility] [address] [id number] [place] [address]- 7966 Jun, [facility] [place] [facility] [address] [id number] [place] [address]- [address] Jun, [facility] [place] [facility] [address] [id number] [place] [address] Jun, [facility] [place] [facility] [address] [id number] [place] [address]- [address] Jun, [facility] [place] [facility] [address] [id number] [place] [address] May, [facility] [place] [facility] [address] [id number] [place] [address]- [address] May, [facility] [place] [facility] [address] [id number] [place] [address]- [address] May, [facility] [place] [facility] [address] [id number] [place] [address]- [address] May, [facility] [place] [facility] [address] [id number] [place] [address]- 46[address] May, [facility] [place] [facility] [address] [id number] [place] [address]- [address] May, [facility] [place] [facility] [address] [id number] [place] [address]- 1096 May, [facility] [place] [facility] [address] [id number] [place] [address]- [address] May, [facility] [place] [facility] [address] [id number] [place] [address]- [address] May, [facility] [address] [id number] [place] [address]- [address] May, [facility] [place] [facility] [address] [id number] [place] [address]- 8534 May, [facility] [place] [facility] [address] [id number] [place] [address]- 9913 May, [facility] [place] [facility] [address] [id number] [place] [address]- [address] May, [facility] [place] [facility] [address] [id number] [place] [address] May, [facility] [place] [facility] [address] [id number] [place] [address] 52[address] May, [facility] [place] [facility] [address] [id number] [place] [address] 4779 Apr, [facility] [place] [facility] [address] [id number] [place] [address]- 5594 Apr, [facility] [place] [facility] [address] [id number] [place] [address]- 0347 Apr, [facility] [place] [facility] [address] [id number] [place] [address]- 7242 Apr, [facility] [place] [facility] [address] [id number] [place] [address]- 7323 Apr, [facility] [place] [facility] [address] [id number] [place] [address]- 3633 Apr, [facility] [place] [facility] [address] [id number] [place] [address]- 4876 Apr, [facility] [place] [facility] [address] [id number] [place] [address]- 4330 Apr, [facility] [place] [facility] [address] [id number] [place] [address]- 6024 Apr, [facility] [place] [facility] [address] [id number] [place] [address]- 6780 Apr, [facility] [address] [id number] [place] [address] 3523 Mar, [facility] [address] [id number] [place] [address]- 9605 Mar, [facility] [address] [id number] [place] [address]- 8879 Mar, [facility] [address] [id number] [place] [address]- 5684 Mar, [facility] [address] [id number] [place] [address]- 9756 Mar, [facility] [address] [id number] [place] [address]- 5276 Mar, [facility] [address] [id number] [place] [address]- 3197 Mar, [facility] [address] [id number] [place] [address]- 6709 Mar, [facility] [address] [id number] [place] [address]- 3446 Mar, [facility] [address] [id number] [place] [address]- 3985 Mar, [facility] [address] [id number] [place] [address]- 4734 Mar, [facility] [address] [id number] [place] [address]- 3659 Mar, [facility] [place] [facility] [address] [id number] [place] [address]- 1641 Mar, [facility] [place] [facility] [address] [id number] [place] [address]- 1960 Mar, [facility] [address] [id number] [place] [address]- 1507 Mar, [facility] [place] [facility] [address] [id number] [place] [address]- 5659 18 Mar, 2013 [facility] [place] [facility] [address] [id number] [place] [address]- 2432 Mar, [facility] [place] [facility] [address] [id number] [place] [address]- 9470 Mar, [facility] [place] [facility] [address] [id number] [place] [address]- 2338 Mar, [facility] [place] [facility] [address] [id number] [place] [address]- 4053 Mar, [facility] [place] [facility] [address] [id number] [place] [address]- 8680 Mar, [facility] [place] [facility] [address] [id number] [place] [address]- 9925 Mar, [facility] [place] [facility] [address] [id number], [place] [address] 54[address] Mar, [facility] [place] [facility] [address] [id number], [place] [address] 480[address] Feb, [facility] [place] [facility] [address] [id number], [place] [address]- 0[address] Feb, [facility] [place] [facility] [address] [id number], [place] [address]- 8[address] Feb, [facility] [place] [facility] [address] [id number], [place] [address]- 2616 16 Feb, 2013 [facility] [place] [facility] [address] [id number], [place] [address]- 2734 15 Feb, 2013 [facility] [place] [facility] [address] [id number], [place] [address]- 5272 Feb, [facility] [place] [facility] [address] [facility] [id number], [place] [address]- 8876 Feb, [facility] [place] [facility] [address] [id number], [place] [address]- 3883 Feb, [facility] [address] [id number] [place] [address]- 7355 Feb, [facility] [place] [facility] [address] [id number] [place] [address]- 5248 Feb, [facility] [place] [facility] [address] [id number] [place] [address]- 1792 30 Jan, 2013 [facility] [place] [facility] [address] [id number] [place] [address]- 3309 26 Jan, 2013 [facility] [place] [facility] [address] [id number] [place] [address]- 5209 24 Jan, 2013 [facility] [place] [facility] [address] [id number] [place] [address]- 5394 23 Jan, 2013 [facility] [place] [facility] [address] [id number] [place] [address]- 2626 17 Jan, 2013 [facility] [place] [facility] [address] [id number] [place] [address]- 1851 Dec, [facility] [place] [facility] [address] [id number] [place] [address]- 9160 Dec, [facility] [place] [facility] [address] [id number] [place] [address]- 6399 Dec, [facility] [place] [facility] [address] [id number] [place] [address]- 1530 15 Dec, 2012 [facility] [place] [facility] [address] [id number] [place] [address]- 4714 14 Dec, 2012 [facility] [place] [facility] [address] [id number] [place] [address]- 8441 Dec, [facility] [place] [facility] [address] [id number] [place] [address]- 1715 Dec, [facility] [place] [facility] [address] [id number] [place] [address]- 0826 Nov, [facility] [place] [facility] [address] [id number] [place] [address]- 2546 16 Nov, 2012 [facility] [address] [id number] [place] [address]- 2516 15 Nov, 2012 [facility] [place] [facility] [address] [id number] [place] [address]- 2546 05 Nov, 2012 [facility] [address] [id number] [place] [address]- 2546 Nov, [facility] [place] [facility] [address] [id number] [place] [address]- 3476 Oct, [facility] [address] [id number] [place] [address]- 6616 Oct, [facility] [place] [facility] [address] [id number] [place] [address]- 2546 Oct, [facility] [address] [id number] [place] [address]- 9066 September, [facility] [address] [id number] [place] [address]- 7046 September, [facility] [address] [id number] [place] [address]- 3376 September, [facility] [address] [id number] [place] [address]- 8856 September, [facility] [place] [facility] [address] [id number] [place] [address]- 8346 September, [facility] [address] [id number] [place] [address]- 2546 September, [facility] [place] [facility] [address] [id number] [place] [address]- 2546 September, [facility] [place] [facility] [address] [id number] [place] [address]- 2546 Aug, [facility] [place] [facility] [address] [id number] [place] [address]- 1107 23 Aug, 2012 [facility] [place] [facility] [address] [id number] [place] [address]- 1419 11 Aug, 2012 [facility] [place] [facility] [address] [id number] [place] [address]- 2750 29 Jul, 2012 [facility] [place] [facility] [address] [id number] [place] [address]- 6867 27 Jul, 2012 [facility] [place] [facility] [address] [id number] [place] [address]- 8053 26 Jul, 2012 [facility] [place] [facility] [address] [id number] [place] [address]- 2580 20 Jul, 2012 [facility] [place] [facility] [address] [id number] [place] [address]- 9672 18 Jul, 2012 [facility] [place] [facility] [address] [facility] [id number] [place] [address]- 1484 18 Jul, 2012 [facility] [place] [facility] [address] [id number] [place] [address]- 6756 13 Jul, 2012 [facility] [place] [facility] [address] [id number] [place] [address]- 9948 28 Jun, 2012 [facility] [place] [facility] [address] [facility] [id number] [place] [address]- 2624 27 Jun, 2012 [facility] [place] [facility] [address] [facility] [id number] [place] [address]- 2331 22 Jun, 2012 [facility] [place] [facility] [address] [id number] [place] [address]- 9716 20 Jun, 2012 [facility] [place] [facility] [address] [id number] [place] [address]- 4297 15 Jun, 2012 [facility] [place] [facility] [address] [id number] [place] [address]- 6235 15 Jun, 2012 [facility] [place] [facility] [address] [facility] [id number] [place] [address]- 8285 13 Jun, 2012 [facility] [place] [facility] [address] [id number] [place] [address]- 2296 Jun, [facility] [address] [id number] [place] [address]- 6376 Jun, [facility] [place] [facility] [address] [id number] [place] [address]- 2546 Jun, [facility] [address] [id number] [place] [address]- 0736 May, [facility] [place] [facility] [address] [id number] [place] [address] 254 May, [facility] [address] [id number] [place] [address]- 0126 May, [facility] [address] [id number] [place] [address]- 6918 May, [facility] [address] [id number] [place] [address]- 5514 May, [facility] [address] [id number] [place] [address]- 7370 May, [facility] [address] [id number] [place] [address]- 9446 31 Apr, 2012 [facility] [address] [id number] [place] [address] 2546 31 Apr, 2012 [facility] [address] [id number] [place] [address] 2546 Apr, [facility] [place] [facility] [address] [id number] [place] [address] 2545 28 Apr, 2012 [facility] [place] [facility] [address] [id number] [place] [address] 2546 26 Apr, 2012 [facility] [place] [facility] [address] [id number] [place] [address]- 2546 20 Apr, 2012 [facility] [place] [facility] [address] [id number] [place] [address]- 0119 Apr, [facility] [place] [facility] [address] [id number] [place] [address]- 6748 Mar, [facility] [place] [facility] [address] [id number] [place] [address]- 1989 Mar, [facility] [place] [facility] [address] [facility] [id number] [place] [address]- 8082 Mar, [facility] [place] [facility] [address] [id number] [place] [address]- 8122 Mar, [facility] [place] [facility] [address] [id number] [place] [address]- 4571 Mar, [facility] [place] [facility] [address] [id number], [place] [address]- 8729 Mar, [facility] [place] [facility] [address] [id number] [place] [address]- 8493 Mar, [facility] [place] [facility] [address] [id number], [place] [address]- 5496 Mar, [facility] [place] [facility] [address] [id number], [place] [address]- 4221 Mar, [facility] [place] [facility] [address] [id number], [place] [address]- 8374 Mar, [facility] [place] [facility] [address] [id number], [place] [address]- 4686 Mar, [facility] [place] [facility] [address] [id number], [place] [address]- 4658 Mar, [facility] [place] [facility] [address] [id number], [place] [address]- 6495 Mar, [facility] [place] [facility] [address] [facility] [id number], [place] [address]- 2086 Mar, [facility] [place] [facility] [address] [facility] [id number], [place] [address]- 5059 Mar, [facility] [place] [facility] [address] [id number] [place] [address]- 3350 Mar, [facility] [place] [facility] [address] [id number] [place] [address]- 4590 Mar, [facility] [place] [facility] [address] [id number] [place] [address]- 0576 Feb, [facility] [place] [facility] [address] [id number] [place] [address]- 8363 Feb, 2011 [facility] [place] [facility] [address] [id number] [place] [address]- 3500 Feb, [facility] [place] [facility] [address] [id number] [place] [address]- 2107 Feb, [facility] [place] [facility] [address] [id number] [place] [address]- 9163 Feb, [facility] [place] [facility] [address] [id number] [place] [address]- 4965 Feb, [facility] [place] [facility] [address] [id number] [place] [address]- 1814 Feb, [facility] [place] [facility] [address] [id number] [place] [address]- 7160 Feb, [facility] [place] [facility] [address] [facility] [id number] [place] [address]- 4853 Feb, [facility] [place] [facility] [address] [id number] [place] [address]- 4945 Feb, [facility] [place] [facility] [address] [id number] [place] [address]- 1844 Feb, [facility] [place] [facility] [address] [id number] [place] [address]- 5804 27 Jan, 2011 [facility] [place] [facility] [address] [id number] [place] [address]- 6432 25 Jan, 2012 [facility] [place] [facility] [address] [id number] [place] [address]- 4902 13 Jan, 2012 [facility] [place] [facility] [address] [id number] [place] [address]- 7613 12 Jan, 2012 [facility] [place] [facility] [address] [id number] [place] [address]- 3630 Jan, [facility] [place] [facility] [address] [id number] [place] [address]- 8115 Dec, [facility] [place] [facility] [address] [id number] [place] [address]- 1385 Dec, [facility] [place] [facility] [address] [id number] [place] [address]- 4541 Dec, [facility] [place] [facility] [address] [id number] [place] [address]- 4478 Dec, [facility] [place] [facility] [address] [id number] [place] [address]- 6162 Dec, [facility] [place] [facility] [address] [id number] [place] [address]- 4756 Dec, [facility] [place] [facility] [address] [id number] [place] [address]- 9205 Dec, [facility] [place] [facility] [address] [id number] [place] [address]- 1581 Dec, [facility] [place] [facility] [address] [id number] [place] [address]- 5302 Nov, [facility] [place] [facility] [address] [id number] [place] [address]- 5185 Nov, [facility] [place] [facility] [address] [id number] [place] [address]- 6535 Nov, [facility] [place] [facility] [address] [id number] [place] [address]- 4385 Nov, [facility] [place] [facility] [address] [id number] [place] [address]- 7100 Nov, [facility] [place] [facility] [address] [id number] [place] [address]- 2734 Oct, [facility] [address] [id number] [place] [address]26 Oct, [facility] [place] [facility] [address] [id number] [place] [address]- 6071 September, [facility] [address] [id number] [place] [address]- 2196 September, [facility] [place] [facility] [address] [id number] [place] [address]- 6639 September, [facility] [address] [id number] [place] [address]- 5347 September, [facility] [place] [facility] [address] [id number] [place] [address]- 5728 September, [facility] [address] [id number] [place] [address]- 9862 September, [facility] [place] [facility] [address] [id number] [place] [address]- 1208 September, [facility] [place] [facility] [address] [id number] [place] [address]- 0738 September, [facility] [place] [facility] [address] [id number] [place] [address]- 4332 September, [facility] [place] [facility] [address] [id number] [place] [address]- 1059 September, [facility] [place] [facility] [address] [id number] [place] [address]- 6284 September, [facility] [place] [facility] [address] [id number] [place] [address]- 0657 September, [facility] [place] [facility] [address] [id number] [place] [address]- 8569 September, [facility] [place] [facility] [address] [id number] [place] [address]- 2665 September, [facility] [place] [facility] [address] [id number] [place] [address]- 8517 24 Aug, 2011 [facility] [address] [id number] [place] [address]- 8297 20 Aug, 2011 [facility] [address] [id number] [place] [address]- 6516 13 Aug, 2011 [facility] [address] [id number] [place] [address]- 7193 11 Aug, 2011 [facility] [address] [id number] [place] [address]- 0869 23 Jul, 2011 [facility] [address] [id number] [place] [address]- 5839 13 Jul, 2011 [facility] [address] [id number] [place] [address]- 9929 13 Jul, 2011 [facility] [address] [id number] [place] [address]- 9143 28 Jun, [address] [facility] [address] [id number] [id number] Jun, 2011 [facility] [address] [id number] [place] [address]- 1563 13 Jun, 2011 [facility] [address] [id number] [place] [address]- 7424 10 Jun, 2011 [facility] [address] [id number] [place] [address]- 8146 07 Jun, 2011 [facility] [address] [id number] [place] [address]- 0476 07 Jun, 2011 [facility] [place] [facility] [address] [id number] [place] [address]- 3366 03 Jun, 2011 [facility] [place] [facility] [address] [id number] [place] [address]- 5876 02 Jun, 2011 [facility] [place] [facility] [address] [id number] [place] [address]- 0473 31 May, 2011 [facility] [address] [id number] [place] [address]- 6981 30 May, 2011 [facility] [address] [id number] [place] [address]- 2651 May, [facility] [address] [id number] [place] [address]- 1890 May, [facility] [address] [id number] [place] [address]- 7312 May, [facility] [address] [id number] [place] [address]- 8358 May, [facility] [address] [id number] [place] [address]- 2757 May, [facility] [address] [id number] [place] [address]- 3814 May, [facility] [place] [facility] [address] [id number] [place] [address] May, [facility] [address] [id number] [place] [address] May, [facility] [place] [facility] [address] [id number] [place] [address] May, [facility] [address] [id number], [place] [address] May, [facility] [place] [facility] [address] [id number], [place] [address] May, [facility] [place] [facility] [address] [id number] [place] [address] May, [facility] [place] [facility] [address] [id number] [place] [address] 30 Apr, 2011 [facility] [place] [facility] [address] [id number] [place] [address] 16 Apr, 2011 [facility] [place] [facility] [address] [id number] [place] [address] 05 Apr, 2011 [facility] [place] [facility] [address] [id number] [place] [address] 17 Mar, 2011 [facility] [place] [facility] [address] [id number] [place] [address] Mar, [facility] [place] [facility] [address] [id number] [place] [address] 31 Feb, 2011 [facility] [place] [facility] [address] [id number] [place] [address] 26 Feb, 2011 [facility] [place] [facility] [address] [id number] [place] [address] Feb, [facility] [place] [facility] [address] [id number] [place] [address] 8360 20 Feb, 2011 [facility] [place] [facility] [address] [id number] [place] [address] 13 Feb, 2011 [facility] [place] [facility] [address] [id number] [place] [address] 28 Apr, 2010 [facility] [place] [facility] [address] [id number] [place] [address] 2546 22 Apr, 2010 [facility] [place] [facility] [address] [facility] [id number] [place] [address] 2541 16 Apr, 2010 [facility] [place] [facility] [address] [id number] [place] [address]46 15 Apr, 2010 [facility] [place] [facility] [address] [id number] [place] [address] 2546 15 Apr, 2010 [facility] [place] [facility] [address] [id number] [place] [address] Apr, [facility] [place] [facility] [address] [id number] [place] [address] 2546 24 Mar, 2010 [facility] [place] [facility] [address] [id number] [place] [address] 17 Mar, 2010 [facility] [place] [address] [address] 17 Mar, 2010 [facility] [place] [id number], [place] [address] 28 Feb, 2010 [facility] [place] [address], [place] [address] Feb, [facility] [place] [id number] [place] [address] Feb, [facility] [place] [id number], [place] [address] Feb, [facility] [place] [id number] [place] [address] Dec, [facility] [place] [id number], [place] [address] Dec, [facility] [place] [id number] [place] [address] Oct, [facility] [place] [address], [place] [address] Mar, [facility] [place] [address], [place] [address] Mar, [facility] [place] [address], [place] [address] September, IMMUNIZATIONS No Known Immunizations SOCIAL HISTORY Never Assessed REASON FOR VISIT EMR-[facility] [place] PLAN OF CARE VITAL SIGNS MEDICATIONS Unknown [...]
--- OUTSIDE RECORDS SUMMARY | 2018-09-19 09:26 | XMS REPORT ---
Author Author Migration, Doctor Organization [facility] Address Unknown Phone Unavailable Care Team Providers Care Land Leasing Examiner Name Role Phone Migration, Doctor Unavailable Unavailable PROBLEMS Type Condition ICD9-CM Code IEZ67-NR Code Onset Dates Condition Status SNOMED Code Problem Hypokalemia E87.6 Active 549005216 Problem Generalized anxiety disorder F41.1 Active 95757454 Problem Pain in right knee M25.561 Active 34350500 Problem Right low back pain, with sciatica presence unspecified M54.5 Active 157571336 Problem Right foot pain M79.671 Active 51315630 Problem UTI symptoms R39.9 Active 94849849 Problem Essential hypertension I10 Active 86734509 Problem Gastroesophageal reflux disease without esophagitis K21.9 Active 714839722 Problem Weight decrease R63.4 Active 091047360 Problem Depression, unspecified depression type F32.9 Active 29609547 Problem Right upper quadrant abdominal pain R10.11 Active 011863954 Problem Tobacco abuse Z72.0 Active 01487062 Problem Insomnia, unspecified type G47.00 Active 860080508 Problem Weight loss R63.4 Active 226255222 Problem Post-traumatic stress disorder, chronic F43.12 Active 21554673 Problem Pulmonary emphysema, unspecified emphysema type J43.9 Active 14844630 Problem Neuropathy G62.9 Active 700664652 Problem Anxiety F41.9 Active 18805992 Problem Other emphysema J43.8 Active 62125425 Problem Other chronic pain G89.29 Active 13741565 Problem Chronic pain G89.29 Active 15482759 Problem Opioid use disorder, moderate, dependence F11.20 Active 73782129 Problem Back pain M54.9 Active 251786151 Problem Bone pain M89.8X9 Active 01481346 Problem Panic attacks F41.0 Active 386822717 Problem Kidney stones N20.0 Active 92643712 Problem Renal calculus, right N20.0 Active 17017378 Problem Generalized abdominal pain R10.84 Active 783656576 ALLERGIES No Information ENCOUNTERS Encounter Location Date Diagnosis [facility] [address] [address] Feb, [facility] [id number] [place] [address] 30039- 5817 Dec, [facility] [id number] [place] [address] 39930- 7850 Dec, [facility] [id number] [place] [address] 10038- 0926 Dec, Medicare welcome exam Z00.00 [facility] [id number] [place] [address] 53548- 0595 17 Nov, 2017 Opioid use disorder, moderate, dependence F11.20 [facility] [id number] [place] [address] 80446- 0640 16 Nov, 2017 Pelvic pain R10.2 ; Acute pyelonephritis N10 and Essential hypertension I10 [facility] [id number] [place] [address] 57654- 6158 28 Oct, 2017 Medicare welcome exam Z00.00 [facility] [id number] [place] [address] 03475- 6662 Oct, Gross hematuria R31.0 ; Urinary tract infection without hematuria, site unspecified N39.0 and Weakness R53.1 [facility] [id number] [place] [address] 25389- 9880 Oct, [facility] [id number] [place] [address] 42713- 2154 Oct, [facility] [id number] [place] [address] 89600- 3487 Oct, Medicare welcome exam Z00.00 [facility] [id number] [place] [address] 37266- 2007 September, Back pain M54.9 and Right anterior knee pain M25.561 [facility] [id number] [place] [address] 13553- 1259 September, [facility] [address] [address] 1556 September, [facility] [id number] [place] [address] 65875- 5359 September, Essential hypertension I10 [facility] [id number] [place] [address] 67213- 0348 September, [facility] [id number] [place] [address] 54672- 3429 September, RLQ abdominal pain R10.31 ; Low back pain M54.5 and Other chronic pain G89.29 [facility] [id number] [place] [address] 25112- 2775 Aug, Medicare welcome exam Z00.00 [facility] [id number] [place] [address] 91139- 9724 Aug, [facility] [id number] [place] [address] 55347- 4204 Aug, Acute pyelonephritis N10 and Medicare welcome exam Z00.00 [facility] [id number] [place] [address] 84854 -1316 Aug, Dysuria R30.0 and Acute pyelonephritis N10 [facility] [address] [address] 5524 Aug, [facility] [id number] [place] [address] 75438- 9657 Aug, [facility] [id number] [place] [address] 28205- 6934 Aug, [facility] [id number] [place] [address] 10542- 9722 Aug, [facility] [address] [address]- 3766 Jul, [facility] [id number] [place] [address] 33650- 8183 Jul, Renal calculus, right N20.0 and Medicare welcome exam Z00.00 [facility] [id number] [place] [address] 81785 -0731 Jul, Dysuria R30.0 and Renal calculus, right N20.0 [facility] [id number] [place] [address] 44258- 9424 Jul, Medicare welcome exam Z00.00 [facility] [id number] [place] [address] 24831- 2579 Jun, Gastroesophageal reflux disease without esophagitis K21.9 and Generalized abdominal pain R10.84 [facility] [id number] [place] [address] 49312- 2048 Jun, Medicare welcome exam Z00.00 [facility] [id number] [place] [address] 55908- 4625 Jun, [facility] [id number] [place] [address] 38727- 3649 Jun, Medicare welcome exam Z00.00 and Encounter for screening mammogram for malignant neoplasm of breast Z12.31 [facility] [id number] [place] [address] 79813- 0426 Jun, Chronic pain G89.29 [facility] [id number] [place] [address] 78959- 2756 May, [facility] [id number] [place] [address] 56764- 7049 May, Pelvic pain R10.2 [facility] [id number] [place] [address] 19108- 9145 May, Pelvic pain R10.2 [facility] [id number] [place] [address] 18940 -1805 May, Renal calculus, right N20.0 [facility] [id number] [place] [address] 77093- 3689 May, Hematuria, unspecified type R31.9 and Nephrolithiasis N20.0 [facility] [id number] [place] [address] 56380 -4068 May, Dysuria R30.0 and Nephrolithiasis N20.0 [facility] [id number] [place] [address] 73022- 7418 May, [facility] [id number] [place] [address] 95510 -8793 May, Abdominal pain R10.9 and Kidney stone N20.0 [facility] [id number] [place] [address] 94363- 1697 May, [facility] [id number] [place] [address] 10231- 0703 May, Chronic pain G89.29 and Panic attacks F41.0 [facility] [id number] [place] [address] 12227- 4247 May, Urinary tract infection without hematuria, site unspecified N39.0 [facility] [id number] [place] [address] 75122- 4758 Apr, Right lower quadrant abdominal pain R10.31 and Abnormal serum lipase level R74.8 [facility] [id number] [place] [address] 15661- 3478 Apr, Recurrent urinary tract infection N39.0 [facility] [id number] [place] [address] 03692- 5409 Apr, UTI symptoms R39.9 ; Recurrent urinary tract infection N39.0 and Pelvic pain R10.2 [facility] [id number] [place] [address] 71068- 0504 Apr, Chronic pain G89.29 and Panic attacks F41.0 [facility] [id number] [place] [address] 44020- 8144 Apr, Dysuria R30.0 [facility] [id number] [place] [address] 33753- 1307 Apr, [facility] [id number] [place] [address] 62632- 5299 Apr, Dysuria R30.0 and Urinary tract infection without hematuria , site unspecified N39.0 [facility] [id number] [place] [address] 35908- 6842 Mar, UTI symptoms R39.9 [facility] [id number] [place] [address] 55412- 2318 Mar, [facility] [id number] [place] [address] 55274- 7057 Mar, Panic attacks F41.0 and Chronic pain G89.29 [facility] [address] 97058- 4568 Mar, [facility] [id number] [place] [address] 13325- 4627 Mar, Dysuria R30.0 [facility] [id number] [place] [address] 43154- 7762 Mar, Dysuria R30.0 [facility] [id number] [place] [address] 60730- 8883 Feb, Chronic pain G89.29 ; Shortness of breath R06.02 ; Weight loss R63.4 ; Encounter for immunization Z23 ; Bone pain M89.8X9 ; Right anterior knee pain M25.561 and Cough R05 [facility] [id number] [place] [address] 55339- 7493 Feb, Shortness of breath R06.02 [facility] [id number] [place] [address] 24216- 6175 Feb, [facility] [id number] [place] [address] 73226- 6028 Feb, Panic attacks F41.0 and Chronic pain G89.29 [facility] [address] 38364- 7299 Feb, [facility] [address] 80408- 7741 04 Feb, 2017 Panic attacks F41.0 ; Shortness of breath R06.02 and Encounter for immunization Z23 [facility] [address] 46909- 1552 Jan, [facility] [address] 98972- 6057 15 Jan, 2017 Anxiety F41.9 and Chronic pain G89.29 [facility] [address] 76269- 3942 Dec, Anxiety F41.9 and Chronic pain G89.29 [facility] [address] 73368- 9116 Nov, Chronic pain G89.29 [facility] [address] 41190- 3690 Nov, Anxiety F41.9 [facility] [address] 07564- 7306 Nov, Chronic pain G89.29 ; Essential hypertension I10 and Other emphysema J43.8 [facility] [id number] [place] [address] 75208- 4275 Oct, Anxiety F41.9 [facility] [address] 62189- 4757 Oct, [facility] [address] 11722- 8575 Oct, Chronic pain G89.29 [facility] [address] 91949- 9832 September, Recurrent UTI N39.0 ; Neuropathy G62.9 and Anxiety F41.9 [facility] [id number] [place] [address] 01857- 0865 September, [facility] [id number] [place] [address] 64217- 4586 September, Chronic pain G89.29 [facility] [id number] [place] [address] 80149- 9867 September, [facility] [address] 47693- 8551 Aug, Post-traumatic stress disorder, chronic F43.12 ; Chronic urinary tract infection N39.0 ; Gastroesophageal reflux disease without esophagitis K21.9 ; Chronic pain G89.29 ; Essential hypertension I10 and Tobacco abuse Z72.0 [facility] [id number] [place] [address] 46041 -2621 Aug, [facility] [address] 67027- 9939 Aug, Chronic pain G89.29 [facility] [address] 49632- 2371 Aug, Insomnia, unspecified type G47.00 [facility] [id number] [place] [address] 07603- 7372 Aug, [facility] [id number] [place] [address] 04797- 8575 Jul, Chronic pain G89.29 [facility] [id number] [place] [address] 43702- 3811 Jul, [facility] [address] 13572- 0230 Jul, [facility] [id number] [place] [address] 15936- 9171 Jul, [facility] [address] 94714- 1487 15 Jul, 2016 Recurrent UTI (urinary tract infection) N39.0 [facility] [id number] [place] [address] 06263- 7262 14 Jul, 2016 [facility] [id number] [place] [address] 44692- 9131 27 Jun, 2016 Chronic pain G89.29 [facility] [id number] [place] [address] 11240- 7880 17 Jun, 2016 [facility] [id number] [place] [address] 96855- 8214 Jun, [facility] [id number] [place] [address] 08608- 2701 May, Chronic pain G89.29 [facility] [id number] [place] [address] 10060- 2482 May, Weight loss R63.4 and Shortness of breath R06.02 [facility] [id number] [place] [address] 58869- 5396 May, Chronic pain G89.29 ; Weight loss R63.4 and Tobacco abuse Z72.0 [facility] [id number] [place] [address] 61575- 7395 May, [facility] [id number] [place] [address] 85790- 1345 May, Hypoxia R09.02 [facility] [id number] [place] [address] 01064- 7635 May, [facility] [id number] [place] [address] 66289- 8482 May, Pulmonary emphysema, unspecified emphysema type J43.9 [facility] [id number] [place] [address] 27265 -4288 May, [facility] [id number] [place] [address] 40207- 8943 May, [facility] [id number] [place] [address] 88155- 3862 May, [facility] [address] 40420- 0073 May, Chronic pain G89.29 ; Encounter for immunization Z23 ; Right anterior knee pain M25.561 and Cough R05 [facility] [address] 31691- 9172 Apr, Chronic pain G89.29 [facility] [id number] [place] [address] 84362- 9992 Apr, [facility] [address] 54828- 7235 Apr, Generalized anxiety disorder F41.1 and Depression, unspecified depression type F32.9 [facility] [address] 39788- 8828 Apr, Chronic pain G89.29 ; Hypokalemia E87.6 and Insomnia, unspecified type G47.00 [facility] [id number] [place] [address] 19188- 6479 Apr, [facility] [id number] [place] [address] 12902- 0223 Apr, Chronic pain G89.29 [facility] [id number] [place] [address] 30549- 8553 Apr, [facility] [id number] [place] [address] 01031- 8763 Mar, [facility] [id number] [place] [address] 26065- 4194 Mar, Insomnia, unspecified type G47.00 [facility] [id number] [place] [address] 90070- 9253 Mar, Chronic pain G89.29 [facility] [id number] [place] [address] 84614- 1305 Mar, [facility] [address] [address]- 3391 Feb, [facility] [address] [address]- 2965 Feb, [facility] [id number] [place] [address] 56194- 8842 Feb, [facility] [id number] [place] [address] 85651- 8144 Feb, [facility] [id number] [place] [address] 46033- 0261 Feb, [facility] [id number] [place] [address] 30546- 0167 29 Jan, 2016 [facility] [id number] [place] [address] 21873- 9599 26 Jan, 2015 [facility] [address] [address]- 2044 20 Jan, 2015 [facility] [id number] [place] [address] 29492- 0513 13 Jan, 2015 [facility] [address] [address]- 0159 12 Jan, 2016 [facility] [id number] [place] [address] 02784- 5554 07 Jan, 2015 Chronic pain G89.29 [facility] [address] [address]- 3123 Jan, 2015 Chronic pain G89.29 and Fibromyalgia M79.7 [facility] [address] [address]- 7171 Dec, Depression, unspecified depression type F32.9 and Generalized anxiety disorder 300.02 [facility] [address] [address]- 9288 Dec, Dysthymia F34.1 ; Insomnia, unspecified type G47.00 and Chronic pain G89.29 [facility] [address] [facility] [id number] [place] [address] 34822- 9583 Dec, Chronic pain G89.29 [facility] [id number] [place] [address] 30745 2546 Dec, Insomnia, unspecified type G47.00 [facility] [address] [facility] [id number] [place] [address] 50684 2541 Dec, Fibromyalgia M79.7 and Chronic pain G89.29 [facility] [id number] [place] [address] 49809- 8886 Dec, [facility] [id number] [place] [address] 65746 2546 Dec, [facility] [id number] [place] [address] 55623- 8272 Dec, [facility] [id number] [place] [address] 59596 2546 Dec, [facility] [id number] [place] [address] 30148- 1262 Dec, Chronic pain G89.29 [facility] [id number] [place] [address] 86156 2540 Dec, [facility] [id number] [place] [address] 26012 2549 Dec, [facility] [id number] [place] [address] 89913 2546 Dec, [facility] [id number] [place] [address] 17998 2545 Dec, Chronic pain G89.29 and Dysthymia F34.1 [facility] [id number] [place] [address] 37370 2541 Nov, [facility] [id number] [place] [address] 09010- 6938 Nov, Hypokalemia E87.6 and Chronic pain G89.29 [facility] [address] 69849- 1377 Nov, Back pain M54.9 and Pain in right knee M25.561 [facility] [address] 83221- 4207 Nov, [facility] [address] 21639- 8298 Nov, Chronic pain G89.29 [facility] [address] 10390- 9668 Nov, Chronic pain G89.29 ; Weight loss R63.4 ; Bone pain M89.8X9 and Insomnia, unspecified type G47.00 [facility] [address] 09411- 7683 Nov, Chronic pain G89.29 [facility] [address] 87067- 1141 Nov, Chronic pain G89.29 [facility] [address] 53814- 5024 30 Oct, 2015 Chronic pain G89.29 [facility] [id number] [place] [address] 77181- 7124 Oct, UTI symptoms R39.9 [facility] [id number] [place] [address] 25155- 9232 27 Oct, 2015 Chronic pain G89.29 [facility] [address] 58658- 2276 20 Oct, 2015 Chronic pain G89.29 [facility] [id number] [place] [address] 05660- 3002 13 Oct, 2015 Chronic pain G89.29 [facility] [address] 80309- 4342 Oct, Right upper quadrant abdominal pain R10.11 [facility] [address] [address]- 4854 Oct, Chronic pain G89.29 [facility] [address] [address]- 3581 Oct, [facility] [id number] [place] [address] 18215- 9919 September, Chronic pain G89.29 [facility] [id number] [place] [address] 43501- 0162 September, Dysuria R30.0 and Urinary tract infection without hematuria , site unspecified N39.0 [facility] [id number] [place] [address] 41098- 3278 September, [facility] [id number] [place] [address] 43025- 2548 September, Dysuria R30.0 [facility] [id number] [place] [address] 56146- 2007 September, Chronic pain G89.29 [facility] [id number] [place] [address] 45120- 7308 September, Chronic pain G89.29 and Essential hypertension I10 [facility] [address] [address] September, [facility] [id number] [place] [address] 06379- 7146 September, [facility] [id number] [place] [address] 97084- 7998 September, [facility] [id number] [place] [address] 34454- 6731 Aug, UTI symptoms R39.9 [facility] [address] [address] Aug, Dysuria R30.0 [facility] [address] [address] Aug, [facility] [id number] [place] [address] 75612- 2436 Aug, [facility] [id number] [place] [address] 61352- 0843 Aug, [facility] [id number] [place] [address] 78026- 2157 Aug, Chronic pain G89.29 [facility] [id number] [place] [address] 46389- 2356 Aug, Dysthymia F34.1 [facility] [id number] [place] [address] 00800- 5444 Aug, Conjunctivitis, unspecified conjunctivitis type, unspecified laterality H10.9 [facility] [id number] [place] [address] 52020- 0309 Jul, Chronic pain G89.29 ; Back pain M54.9 ; Tobacco abuse Z72.0 and Weight decrease R63.4 [facility] [id number] [place] [address] 05230- 6537 Jul, [facility] [id number] [place] [address] 87983- 1089 Jul, [facility] [id number] [place] [address] 06181- 2535 24 Jul, 2015 Chronic pain G89.29 [facility] [address] [address] 87[address] Jul, [facility] [id number] [place] [address] 27232- 4969 Jul, [facility] [id number] [place] [address] 80396- 0456 Jul, [facility] [id number] [place] [address] 01468- 5127 17 Jul, 2015 [facility] [address] [address] 17 Jul, 2015 Chronic pain G89.29 [facility] [address] [address] 4[address] 16 Jul, 2015 Chronic pain G89.29 [facility] [address] [id number] [place] [address] 77754- 1336 15 Jul, 2015 [facility] [id number] [place] [address] 65882- 4633 Jul, [facility] [id number] [place] [address] 41008- 1204 Jul, [facility] [id number] [place] [address] 91371- 1267 Jul, [facility] [id number] [place] [address] 07831- 2600 Jun, [facility] [id number] [place] [address] 25424- 6314 Jun, Depression, unspecified depression type F32.9 [facility] [id number] [place] [address] 65554- 7457 Jun, Pain in right knee M25.561 [facility] [id number] [place] [address] 96687- 8999 24 Jun, 2015 Chronic pain G89.29 ; Back pain M54.9 ; Bone pain M89.8X9 and Weight loss R63.4 [facility] [id number] [place] [address] 91408- 1220 Jun, [facility] [id number] [place] [address] 16411- 6197 May, [facility] [address] [address] 3324 May, UTI symptoms R39.9 ; Pain in right knee M25.561 ; Right low back pain, with sciatica presence unspecified M54.5 ; Right foot pain M79.671 ; Hypokalemia E87.6 and Screening, lipid Z13.220 [facility] [id number] [place] [address] 78571- 6967 May, [facility] [id number] [place] [address] 84852- 2952 May, [facility] [id number] [place] [address] 66723- 0779 Mar, [facility] [id number] [place] [address] 45481- 1435 Mar, [facility] [id number] [place] [address] 60546- 0750 Mar, Hypokalemia E87.6 [facility] [address] [address]329- 4103 Mar, Pain in right leg M79.604 ; Encounter for immunization Z23 ; Pain in right knee M25.561 and Hypokalemia E87.6 [facility] [id number] [place] [address] 03412- 7458 Jan, [facility] [id number] [place] [address] 48625- 6160 Jan, [facility] [id number] [place] [address] 57442 2540 Jan, Abdominal pain, generalized 789.07 [facility] [id number] [place] [address] 03866 2543 Jan, Abdominal pain, generalized 789.07 [facility] [id number] [place] [address] 03620- 6443 Dec, [facility] [id number] [place] [address] 54405- 4714 Dec, [facility] [address] [address]- 4756 Dec, [facility] [id number] [place] [address] 55672- 5000 Nov, Hallux valgus 735.0 and Hammertoe 735.4 [facility] [address] [address]- 0626 Nov, [facility] [id number] [place] [address] 98599- 0546 Nov, Hallux valgus 735.0 and Hammer toe 735.4 [facility] [id number] [place] [address] 93205- 7046 Oct, [facility] [id number] [place] [address] 46623- 9656 Oct, [facility] [id number] [place] [address] 22379- 3946 Oct, Pre-op evaluation V72.84 [facility] [address] [address]- 3463 Oct, [facility] [id number] [place] [address] 25783- 7511 Oct, [facility] [address] [address]- 2498 September, [facility] [address] [address] 2546 September, [facility] [id number] [address]- 5770 September, Hallux valgus (acquired) 735.0 and Other hammer toe ( acquired) 735.4 [facility] [address] [address]- 2546 Aug, [facility] [id number] [place] [address] 81036- 0120 Aug, [facility] [place] [facility] [address] [id number] [place] [address]- 9217 Jul, [facility] [place] [facility] [address] [id number] [place] [address]- 5780 Jul, [facility] [place] [facility] [address] [id number] [place] [address]- 9901 Jul, [facility] [place] [facility] [address] [id number] [place] [address]- 9427 Jul, [facility] [place] [facility] [address] [id number] [place] [address]- 9187 Jul, [facility] [place] [facility] [address] [id number] [place] [address]- 4699 Jul, [facility] [place] [facility] [address] [facility] [id number] [place] [address]- 1883 Jul, [facility] [place] [facility] [address] [id number] [place] [address]- 6466 Jul, [facility] [place] [facility] [address] [id number] [place] [address]- 0892 Jun, [facility] [place] [facility] [address] [facility] [id number] [place] [address]- 3930 Jun, [facility] [place] [facility] [address] [id number] [place] [address]- 8571 Jun, 2014 [facility] [place] [facility] [address] [id number] [place] [address]- 8981 Jun, [facility] [place] [facility] [address] [id number] [place] [address]- 9240 Jun, [facility] [place] [facility] [address] [id number] [place] [address]- 0105 Jun, [facility] [place] [facility] [address] [facility] [id number] [place] [address]- 2468 Jun, [facility] [place] [facility] [address] [id number] [place] [address]- 7120 Jun, [facility] [address] [id number] [place] [address]- 4705 Jun, [facility] [place] [facility] [address] [id number] [place] [address]- 5516 Jun, [facility] [place] [facility] [address] [id number] [place] [address]- 7414 May, [facility] [place] [facility] [address] [id number] [place] [address]- 4963 May, [facility] [place] [facility] [address] [id number] [place] [address]- 9188 May, [facility] [place] [facility] [address] [id number] [place] [address]- 7614 May, [facility] [place] [facility] [address] [id number] [place] [address]- 6439 May, [facility] [address] [id number] [place] [address]- 1820 May, [facility] [place] [facility] [address] [id number] [place] [address]- 3319 May, [facility] [place] [facility] [address] [id number] [place] [address]- 7355 May, [facility] [place] [facility] [address] [id number] [place] [address]- 9604 May, [facility] [place] [facility] [address] [id number] [place] [address]- 7228 May, [facility] [place] [facility] [address] [id number] [place] [address]- 6249 May, [facility] [place] [facility] [address] [id number] [place] [address]- 0386 May, [facility] [place] [facility] [address] [id number] [place] [address]- 0159 May, [facility] [place] [facility] [address] [id number] [place] [address]- 2612 May, [facility] [place] [facility] [address] [id number] [place] [address]- 2005 May, [facility] [place] [facility] [address] [id number] [place] [address]- 9205 May, [facility] [place] [facility] [address] [id number] [place] [address]- 1749 May, [facility] [place] [facility] [address] [id number] [place] [address]- 9137 May, [facility] [place] [facility] [address] [id number] [place] [address]- 8167 Apr, [facility] [place] [facility] [address] [id number] [place] [address]- 2273 Apr, [facility] [place] [facility] [address] [id number] [place] [address]- 1948 Apr, [facility] [place] [facility] [address] [id number] [place] [address]- 6524 Apr, [facility] [place] [facility] [address] [id number] [place] [address]- 3632 Apr, [facility] [place] [facility] [address] [id number] [place] [address]- 8864 Apr, [facility] [place] [facility] [address] [id number] [place] [address]- 5528 Apr, [facility] [place] [facility] [address] [id number] [place] [address]- 8589 Apr, [facility] [place] [facility] [address] [id number] [place] [address]- 1824 Apr, [facility] [place] [facility] [address] [id number] [place] [address]- 6775 Mar, [facility] [place] [facility] [address] [id number] [place] [address]- 6060 Mar, [facility] [place] [facility] [address] [id number] [place] [address]- 6213 Mar, [facility] [place] [facility] [address] [id number] [place] [address]- 7390 Mar, [facility] [place] [facility] [address] [id number] [place] [address]- 7347 Mar, [facility] [place] [facility] [address] [id number] [place] [address]- 9239 Feb, [facility] [place] [facility] [address] [id number] [place] [address]- 5797 Feb, [facility] [place] [facility] [address] [id number] [place] [address]- 6229 Feb, [facility] [place] [facility] [address] [id number] [place] [address]- 1493 Feb, [facility] [place] [facility] [address] [id number] [place] [address]- 1687 Feb, [facility] [place] [facility] [address] [id number] [place] [address]- 1813 Feb, [facility] [place] [facility] [address] [id number] [place] [address]- 2517 Feb, [facility] [place] [facility] [address] [id number] [place] [address]- 1959 Feb, [facility] [place] [facility] [address] [id number] [address]- 1502 Feb, [facility] [place] [facility] [address] [id number] [place] 0885 Feb, [facility] [place] [facility] [address] [id number] [address]- 9825 Feb, [facility] [place] [facility] [address] [id number] 0978 Feb, [facility] [place] [facility] [address] [id number] [place] [address]- 7859 07 Feb, 2013 [facility] [place] [facility] [address] [id number] [place] [address]- 1758 Feb, [facility] [place] [facility] [address] [id number] [place] [address]- 2764 Feb, 2013 [facility] [place] [facility] [address] [id number] [place] [address]- 5041 Feb, [facility] [place] [facility] [address] [id number] [place] [address]- 3697 Jan, 2013 [facility] [place] [facility] [address] [id number] [place] [address]- 3803 23 Jan, 2013 [facility] [place] [facility] [address] [id number] [place] [address]- 2875 20 Jan, 2014 [facility] [place] [facility] [address] [id number] [place] [address]- 9697 19 Jan, 2013 [facility] [place] [facility] [address] [id number] [place] [address]- 7338 11 Jan, 2014 [facility] [place] [facility] [address] [id number] [place] [address]- 1692 Jan, [facility] [place] [facility] [address] [id number] [place] [address]- 5933 Jan, [facility] [place] [facility] [address] [id number] [place] [address]- 0360 Jan, 2013 [facility] [place] [facility] [address] [id number] [place] [address]- 1726 Dec, [facility] [place] [facility] [address] [id number] [place] [address]- 7766 Dec, [facility] [place] [facility] [address] [id number] [place] [address]- 4346 Nov, [facility] [place] [facility] [address] [id number] [place] [address]- 0835 Nov, [facility] [place] [facility] [address] [id number] [place] [address]- 8480 Nov, [facility] [place] [facility] [address] [id number] [place] [address]- 7157 Nov, [facility] [place] [facility] [address] [id number] [place] [address]- 0135 Nov, [facility] [place] [facility] [address] [id number] [place] [address]- 8490 Nov, [facility] [place] [facility] [address] [id number] [place] [address]- 6471 Nov, [facility] [place] [facility] [address] [id number] [place] [address]- 5713 Nov, [facility] [place] [facility] [address] [id number] [place] [address]- 1172 Nov, [facility] [place] [facility] [address] [id number] [place] [address]- 3711 Oct, [facility] [place] [facility] [address] [id number] [place] [address]- 6436 Oct, [facility] [place] [facility] [address] [id number] [place] [address]- 3512 Oct, [facility] [place] [facility] [address] [id number] [place] [address]- 0623 Oct, [facility] [place] [facility] [address] [id number] [place] [address]- 6181 Oct, [facility] [place] [facility] [address] [id number] [place] [address]- 4428 Oct, [facility] [place] [facility] [address] [id number] [place] [address]- 8589 September, [facility] [place] [facility] [address] [id number] [place] [address]- 6500 September, [facility] [place] [facility] [address] [id number] [place] [address]- 9650 September, [facility] [address] [id number] [place] 7255 September, [facility] [address] [id number] [place] [address]- 5721 September, [facility] [address] [id number] [place] [address]- 5231 September, [facility] [address] [id number] [place] [address]- 5867 September, [facility] [address] [id number] [place] 9775 September, [facility] [address] [id number] [place] [address]- 3283 September, [facility] [address] [id number] [place] [address]- 1322 September, [facility] [address] [id number] [place] [address]- 9778 September, [facility] [address] [id number] [place] [address]- 7559 September, [facility] [address] [id number] [place] [address]- 2714 September, [facility] [address] [id number] [place] [address]- 8728 September, [facility] [address] [id number] [place] [address]- 2285 September, [facility] [place] [facility] [address] [id number] [place] 8649 September, [facility] [place] [facility] [address] [id number] [place] 9939 September, [facility] [address] [id number] [place] [address]- 1693 September, [facility] [place] [facility] [address] [id number] [place] [address]- 1536 September, [facility] [place] [facility] [address] [id number] [place] [address]- 6457 September, [facility] [place] [facility] [address] [id number] [place] [address]- 1921 Aug, [facility] [place] [facility] [address] [id number] [place] [address]- 1574 Aug, [facility] [place] [facility] [address] [id number] [place] [address]- 9963 Aug, [facility] [place] [facility] [address] [id number] [place] [address]- 0797 Aug, [facility] [place] [facility] [address] [id number] [place] [address]- 0912 Aug, [facility] [place] [facility] [address] [id number] [place] [address]- 9124 Aug, [facility] [place] [facility] [address] [id number] [place] [address]- 0308 Aug, [facility] [place] [facility] [address] [id number] [place] [address]- 6306 Aug, [facility] [place] [facility] [address] [id number] [place] [address]- 7976 Aug, [facility] [place] [facility] [address] [id number] [place] [address]- 2167 Aug, [facility] [place] [facility] [address] [id number] [place] [address]- 1437 Aug, [facility] [place] [facility] [address] [id number] [place] [address]- 8081 Aug, [facility] [place] [facility] [address] [id number] [place] [address]- 7903 Aug, [facility] [place] [facility] [address] [id number] [place] [address]- 3802 Aug, [facility] [place] [facility] [address] [id number] [place] [address]- 5958 Aug, [facility] [place] [facility] [address] [id number] [place] [address]- 7847 Jul, [facility] [place] [facility] [address] [id number] [place] [address]- 6070 Jul, [facility] [place] [facility] [address] [id number] [place] [address]- 7227 Jul, [facility] [place] [facility] [address] [id number] [place] [address]- 6308 Jul, [facility] [place] [facility] [address] [id number] [place] [address]- 0902 Jul, [facility] [place] [facility] [address] [id number] [place] [address]- 6535 Jul, [facility] [place] [facility] [address] [id number] [place] [address]- 8273 Jul, [facility] [place] [facility] [address] [id number] [place] [address]- 3042 Jul, [facility] [place] [facility] [address] [id number] [place] [address]- 4243 Jul, [facility] [place] [facility] [address] [id number] [place] [address]- 5138 Jul, [facility] [place] [facility] [address] [id number] [place] [address]- 4329 Jul, [facility] [place] [facility] [address] [id number] [place] [address]- 6680 Jul, [facility] [place] [facility] [address] [id number] [place] [address]- 3219 Jul, [facility] [place] [facility] [address] [id number] [place] [address]- 5373 Jul, [facility] [place] [facility] [address] [id number] [place] [address]- 6478 Jul, [facility] [place] [facility] [address] [id number] [place] [address]- 1969 Jun, [facility] [place] [facility] [address] [id number] [place] [address] Jun, [facility] [place] [facility] [address] [id number] [place] [address] Jun, [facility] [place] [facility] [address] [id number] [place] [address] Jun, [facility] [place] [facility] [address] [id number] [place] [address] Jun, [facility] [place] [facility] [address] [id number] [place] [address] Jun, [facility] [place] [facility] [address] [id number] [place] [address] May, [facility] [place] [facility] [address] [id number] [place] [address] May, [facility] [place] [facility] [address] [id number] [place] [address]- [address] May, [facility] [place] [facility] [address] [id number] [place] [address] May, [facility] [place] [facility] [address] [id number] [place] [address]- [address] May, [facility] [place] [facility] [address] [id number] [place] [address]- [address]268 May, [facility] [place] [facility] [address] [id number] [place] [address]- [address]39 May, [facility] [place] [facility] [address] [id number] [place] [address] May, [facility] [place] [facility] [address] [id number] [place] [address]- [address] May, [facility] [address] [id number] [place] [address]- [address] May, [facility] [place] [facility] [address] [id number] [place] [address]- [address] May, [facility] [place] [facility] [address] [id number] [place] [address]- [address] May, [facility] [place] [facility] [address] [id number] [place] [address]- [address] May, [facility] [place] [facility] [address] [id number] [place] [address]- [address] May, [facility] [place] [facility] [address] [id number] [place] [address]- [address] May, [facility] [place] [facility] [address] [id number] [place] [address]- [address] Apr, [facility] [place] [facility] [address] [id number] [place] [address]- [address] Apr, [facility] [place] [facility] [address] [id number] [place] [address] Apr, [facility] [place] [facility] [address] [id number] [place] [address]70 Apr, [facility] [place] [facility] [address] [id number] [place] [address]- [address] Apr, [facility] [place] [facility] [address] [id number] [place] [address]- [address] Apr, [facility] [place] [facility] [address] [id number] [place] [address]- [address] Apr, [facility] [place] [facility] [address] [id number] [place] [address]- 20[address] Apr, [facility] [place] [facility] [address] [id number] [place] [address]- [address] Apr, [facility] [place] [facility] [address] [id number] [place] [address]- [address] Apr, [facility] [address] [id number] [place] [address]- [address] Mar, [facility] [address] [id number] [place] [address]- [address] Mar, [facility] [address] [id number] [place] [address]004 Mar, [facility] [address] [id number] [place] [address]- [address] Mar, [facility] [address] [id number] [place] [address] Mar, [facility] [address] [id number] [place] [address]- [address]85 Mar, [facility] [address] [id number] [place] [address] Mar, [facility] [address] [id number] [place] [address]- [address]11 Mar, [facility] [address] [id number] [place] [address]- [address] Mar, [facility] [address] [id number] [place] [address]- 9708 Mar, [facility] [address] [id number] [place] [address]- [address]378 Mar, [facility] [address] [id number] [place] [address]- 390[address] Mar, [facility] [place] [facility] [address] [id number] [place] [address]- 4729 Mar, [facility] [place] [facility] [address] [id number] [place] [address]- 6583 Mar, [facility] [address] [id number] [place] [address]- [address] Mar, [facility] [place] [facility] [address] [id number] [place] [address]- [address] 18 Mar, 2013 [facility] [place] [facility] [address] [id number] [place] [address]- [address]756 Mar, [facility] [place] [facility] [address] [id number] [place] [address]- 6097 Mar, [facility] [place] [facility] [address] [id number] [place] [address]- 2299 Mar, [facility] [place] [facility] [address] [id number] [place] [address]- [address]40 Mar, [facility] [place] [facility] [address] [id number] [place] [address]- 1520 Mar, [facility] [place] [facility] [address] [id number] [place] [address]- [address] Mar, [facility] [place] [facility] [address] [id number] [address] Mar, [facility] [place] [facility] [address] [id number] [place] [address] Feb, [facility] [place] [facility] [address] [id number] [place] [address] Feb, [facility] [place] [facility] [address] [id number] [place] [address]45 Feb, [facility] [place] [facility] [address] [id number] [place] [address] 16 Feb, 2013 [facility] [place] [facility] [address] [id number] [place] [address] 15 Feb, 2013 [facility] [place] [facility] [address] [id number] [place] [address] Feb, [facility] [place] [facility] [address] [facility] [id number] [place] [address] Feb, [facility] [place] [facility] [address] [id number] [place] [address]- 74[address] Feb, [facility] [address] [id number] [place] [address]- [address]65 Feb, [facility] [place] [facility] [address] [id number] [place] [address] Feb, [facility] [place] [facility] [address] [id number] [place] [address] 0[address] 30 Jan, 2013 [facility] [place] [facility] [address] [id number] [place] [address] 6479 26 Jan, 2013 [facility] [place] [facility] [address] [id number] [place] [address] 7651 24 Jan, 2013 [facility] [place] [facility] [address] [id number] [place] [address]- 3322 23 Jan, 2013 [facility] [place] [facility] [address] [id number] [place] [address]- 8618 17 Jan, 2013 [facility] [place] [facility] [address] [id number] [place] [address] 6185 Dec, [facility] [place] [facility] [address] [id number] [place] [address] 1859 Dec, [facility] [place] [facility] [address] [id number] [place] [address]- 6169 Dec, [facility] [place] [facility] [address] [id number] [place] [address]- 2636 15 Dec, 2012 [facility] [place] [facility] [address] [id number] [place] [address] 9638 14 Dec, 2012 [facility] [place] [facility] [address] [id number] [place] [address]- 8640 Dec, [facility] [place] [facility] [address] [id number] [place] [address]- 9451 Dec, [facility] [place] [facility] [address] [id number] [place] [address] 9248 Nov, [facility] [place] [facility] [address] [id number] [place] [address]- 2546 16 Nov, 2012 [facility] [address] [id number] [place] [address]- 2536 15 Nov, 2012 [facility] [place] [facility] [address] [id number] [place] [address]- 2546 05 Nov, 2012 [facility] [address] [id number] [place] [address]- 2546 Nov, [facility] [place] [facility] [address] [id number] [place] [address]- 6956 Oct, [facility] [address] [id number] [place] [address] 4456 Oct, [facility] [place] [facility] [address] [id number] [place] [address]- 2546 Oct, [facility] [address] [id number] [place] [address]- 7536 September, [facility] [address] [id number] [place] [address]- 4795 September, [facility] [address] [id number] [place] [address]- 8226 September, [facility] [address] [id number] [place] [address]- 3646 September, [facility] [place] [facility] [address] [id number] [place] [address]- 4136 September, [facility] [address] [id number] [place] [address]- 2546 September, [facility] [place] [facility] [address] [id number] [place] [address]- 2546 September, [facility] [place] [facility] [address] [id number] [place] [address]- 2546 Aug, [facility] [place] [facility] [address] [id number] [place] [address]- 0198 23 Aug, 2012 [facility] [place] [facility] [address] [id number] [place] [address]- 9809 11 Aug, 2012 [facility] [place] [facility] [address] [id number] [place] [address]- 6399 29 Jul, 2012 [facility] [place] [facility] [address] [id number] [place] [address]- 0994 27 Jul, 2012 [facility] [place] [facility] [address] [id number] [place] [address]- 5456 26 Jul, 2012 [facility] [place] [facility] [address] [id number] [place] [address]- 9602 20 Jul, 2012 [facility] [place] [facility] [address] [id number] [place] [address]- 9098 18 Jul, 2012 [facility] [place] [facility] [address] [facility] [id number] [place] [address]- 8643 18 Jul, 2012 [facility] [place] [facility] [address] [id number] [place] [address]- 5989 13 Jul, 2012 [facility] [place] [facility] [address] [id number] [place] [address]- 3219 28 Jun, 2012 [facility] [place] [facility] [address] [facility] [id number] [place] [address]- 2596 27 Jun, 2012 [facility] [place] [facility] [address] [facility] [id number] [place] [address]- 3268 22 Jun, 2012 [facility] [place] [facility] [address] [id number] [place] [address]- 6362 20 Jun, 2012 [facility] [place] [facility] [address] [id number] [place] [address]- 8206 15 Jun, 2012 [facility] [place] [facility] [address] [id number] [place] [address]- 8572 15 Jun, 2012 [facility] [place] [facility] [address] [facility] [id number] [place] [address]- 1804 13 Jun, 2012 [facility] [place] [facility] [address] [id number] [place] [address]- 0796 Jun, [facility] [address] [id number] [place] [address]- 0776 Jun, [facility] [place] [facility] [address] [id number] [place] [address]- 2546 Jun, [facility] [address] [id number] [place] [address]- 2056 May, [facility] [place] [facility] [address] [id number] [place] [address] 2544 May, [facility] [address] [id number] [place] [address]- 9026 May, [facility] [address] [id number] [place] [address]- 5992 May, [facility] [address] [id number] [place] [address]- 7266 May, [facility] [address] [id number] [place] [address]- 7695 May, [facility] [address] [id number] [place] [address]- 7544 31 Apr, 2012 [facility] [address] [id number] [place] [address] 2546 31 Apr, 2012 [facility] [address] [id number] [place] [address] 2546 Apr, [facility] [place] [facility] [address] [id number] [place] [address] 2541 28 Apr, 2012 [facility] [place] [facility] [address] [id number] [place] [address] 2546 26 Apr, 2012 [facility] [place] [facility] [address] [id number] [place] [address]- 2546 20 Apr, 2012 [facility] [place] [facility] [address] [id number] [place] [address]- 7787 Apr, [facility] [place] [facility] [address] [id number] [place] [address]- 9929 Mar, [facility] [place] [facility] [address] [id number] [place] [address]- 6515 Mar, [facility] [place] [facility] [address] [facility] [id number] [place] [address]- 7242 Mar, [facility] [place] [facility] [address] [id number] [place] [address]- 7163 Mar, [facility] [place] [facility] [address] [id number] [place] [address]- 8171 Mar, [facility] [place] [facility] [address] [id number] [address]- 7407 Mar, [facility] [place] [facility] [address] [id number] [place] [address]- 8057 Mar, [facility] [place] [facility] [address] [id number] [address]- 6417 Mar, [facility] [place] [facility] [address] [id number] [place] [address]- 4777 Mar, [facility] [place] [facility] [address] [id number] [place] [address]- 4019 Mar, [facility] [place] [facility] [address] [id number] [place] [address]- 8192 Mar, [facility] [place] [facility] [address] [id number] [place] [address]- 9700 Mar, [facility] [place] [facility] [address] [id number] [address]- 8162 Mar, [facility] [place] [facility] [address] [facility] [id number] [place] [address]- 5074 Mar, [facility] [place] [facility] [address] [facility] [id number] [address]- 1202 Mar, [facility] [place] [facility] [address] [id number] [place] [address]- 7589 Mar, [facility] [place] [facility] [address] [id number] [place] [address]- 2209 Mar, [facility] [place] [facility] [address] [id number] [place] [address]- 6312 Feb, [facility] [place] [facility] [address] [id number] [place] [address]- 6835 Feb, 2011 [facility] [place] [facility] [address] [id number] [place] [address]- 2742 Feb, [facility] [place] [facility] [address] [id number] [place] [address]- 5611 Feb, [facility] [place] [facility] [address] [id number] [place] [address]- 0944 Feb, [facility] [place] [facility] [address] [id number] [place] [address]- 7691 Feb, [facility] [place] [facility] [address] [id number] [place] [address]- 1976 Feb, [facility] [place] [facility] [address] [id number] [place] [address]- 4685 Feb, [facility] [place] [facility] [address] [facility] [id number] [place] [address]- 0877 Feb, [facility] [place] [facility] [address] [id number] [place] [address]- 3605 Feb, [facility] [place] [facility] [address] [id number] [place] [address]- 6652 Feb, [facility] [place] [facility] [address] [id number] [place] [address]- 1385 27 Jan, 2011 [facility] [place] [facility] [address] [id number] [place] [address]- 0498 25 Jan, 2012 [facility] [place] [facility] [address] [id number] [place] [address]- 3664 13 Jan, 2012 [facility] [place] [facility] [address] [id number] [place] [address]- 1147 12 Jan, 2012 [facility] [place] [facility] [address] [id number] [place] [address]- 0599 Jan, [facility] [place] [facility] [address] [id number] [place] [address]- 2178 Dec, [facility] [place] [facility] [address] [id number] [place] [address]- 5112 Dec, [facility] [place] [facility] [address] [id number] [place] [address]- 3787 Dec, [facility] [place] [facility] [address] [id number] [place] [address]- 9440 Dec, [facility] [place] [facility] [address] [id number] [place] [address]- 0397 Dec, [facility] [place] [facility] [address] [id number] [place] [address]- 7636 Dec, [facility] [place] [facility] [address] [id number] [place] [address]- 1904 Dec, [facility] [place] [facility] [address] [id number] [place] [address]- 5018 Dec, [facility] [place] [facility] [address] [id number] [place] [address]- 3203 Nov, [facility] [place] [facility] [address] [id number] [place] [address]- 2692 Nov, [facility] [place] [facility] [address] [id number] [place] [address]- 5003 Nov, [facility] [place] [facility] [address] [id number] [place] [address]- 6725 Nov, [facility] [place] [facility] [address] [id number] [place] [address]- 0634 Nov, [facility] [place] [facility] [address] [id number] [place] [address]- 5401 Oct, [facility] [address] [id number] [place]697 Oct, [facility] [place] [facility] [address] [id number] [place] [address]- 2428 September, [facility] [address] [id number] [place] [address]- 7376 September, [facility] [place] [facility] [address] [id number] [place] [address]- 3744 September, [facility] [address] [id number] [place] [address]- 1635 September, [facility] [place] [facility] [address] [id number] [place] [address]- 9082 September, [facility] [address] [id number] [place] [address]- 6482 September, [facility] [place] [facility] [address] [id number] [place] [address]- 2481 September, [facility] [place] [facility] [address] [id number] [place] [address]- 7018 September, [facility] [place] [facility] [address] [id number] [place] [address]- 0462 September, [facility] [place] [facility] [address] [id number] [place] [address]- 7935 September, [facility] [place] [facility] [address] [id number] [place] [address]- 2506 September, [facility] [place] [facility] [address] [id number] [place] [address]- 2835 September, [facility] [place] [facility] [address] [id number] [place] [address]- 4348 September, [facility] [place] [facility] [address] [id number] [place] [address]- 8783 September, [facility] [place] [facility] [address] [id number] [place] [address]- 9357 24 Aug, 2011 [facility] [address] [id number] [place] [address]- 1597 20 Aug, 2011 [facility] [address] [id number] [place] [address]- 6016 13 Aug, 2011 [facility] [address] [id number] [place] [address]- 9303 11 Aug, 2011 [facility] [address] [id number] [place] [address]- 2417 23 Jul, 2011 [facility] [address] [id number] [place] [address]- 7896 13 Jul, 2011 [facility] [address] [id number] [place] [address]- 7771 13 Jul, 2011 [facility] [address] [id number] [place] [address]- 0316 28 Jun, [address] [facility] [address] [id number] 26 Jun, 2011 [facility] [address] [id number] [place] [address]- 5014 13 Jun, 2011 [facility] [address] [id number] [place] [address]- 6892 10 Jun, 2011 [facility] [address] [id number] [place] [address]- 1636 07 Jun, 2011 [facility] [address] [id number] [place] [address]- 2186 07 Jun, 2011 [facility] [place] [facility] [address] [id number] [place] [address]- 1716 03 Jun, 2011 [facility] [place] [facility] [address] [id number] [place] [address]- 4156 02 Jun, 2011 [facility] [place] [facility] [address] [id number] [place] [address]- 4122 31 May, 2011 [facility] [address] [id number] [place] [address]- 3321 30 May, 2011 [facility] [address] [id number] [place] [address]- 9202 May, [facility] [address] [id number] [place] [address]- 6423 May, [facility] [address] [id number] [place] [address]- 7737 May, [facility] [address] [id number] [place] [address]- 5241 May, [facility] [address] [id number] [place] [address]- 4164 May, [facility] [address] [id number] [place] [address]- 3552 May, [facility] [place] [facility] [address] [id number] [place] [address]- 8500 May, [facility] [address] [id number] [place] [address]- 3350 May, [facility] [place] [facility] [address] [id number] [place] [address]- 5365 May, [facility] [address] [id number] [place] [address]- 6620 May, [facility] [place] [facility] [address] [id number] [place] [address]- 5580 May, [facility] [place] [facility] [address] [id number] [place] [address]- 7136 May, [facility] [place] [facility] [address] [id number] [place] [address]- 7708 30 Apr, 2011 [facility] [place] [facility] [address] [id number] [place] [address]- 3440 16 Apr, 2011 [facility] [place] [facility] [address] [id number] [place] [address]- 3556 05 Apr, 2011 [facility] [place] [facility] [address] [id number] [place] [address]- 6036 17 Mar, 2011 [facility] [place] [facility] [address] [id number] [place] [address] 2546 Mar, [facility] [place] [facility] [address] [id number] [place] [address]- 8616 31 Feb, 2011 [facility] [place] [facility] [address] [id number] [place] [address] 2546 26 Feb, 2011 [facility] [place] [facility] [address] [id number] [place] [address]- 0004 Feb, [facility] [place] [facility] [address] [id number] [place] [address]- 4198 20 Feb, 2011 [facility] [place] [facility] [address] [id number] [place] [address]- 6339 13 Feb, 2011 [facility] [place] [facility] [address] [id number] [place] [address]- 9344 28 Apr, 2010 [facility] [place] [facility] [address] [id number] [place] [address] 2546 22 Apr, 2010 [facility] [place] [facility] [address] [facility] [id number] [place] [address] 2543 16 Apr, 2010 [facility] [place] [facility] [address] [id number] [place] [address] 2546 15 Apr, 2010 [facility] [place] [facility] [address] [id number] [place] [address] 2546 15 Apr, 2010 [facility] [place] [facility] [address] [id number] [place] [address] 2546 Apr, [facility] [place] [facility] [address] [id number] [place] [address] 2546 24 Mar, 2010 [facility] [place] [facility] [address] [id number] [place] [address] 254 17 Mar, 2010 [facility] [id number] [address]- 0566 17 Mar, 2010 [facility] [id number] [address]- 2185 28 Feb, 2010 [facility] [id number] [address]- 4895 Feb, [facility] [id number] [place] [address]- 5776 Feb, [facility] [id number] [address]- 7958 Feb, [facility] [id number] [place] [address] 9[address]- 1516 Dec, [facility] [id number] [address]- 4651 Dec, [facility] [id number] [place] [id number] Oct, [facility] [id number] [address] Mar, [facility] [address] [address] Mar, [facility] [id number] [address] September, IMMUNIZATIONS No Known Immunizations SOCIAL HISTORY Never Assessed REASON FOR VISIT EMR-[facility] [place] PLAN OF CARE VITAL SIGNS MEDICATIONS Unknown [...]
[2018-09-19] MEDS ORDERED: MIDAZOLAM 2 MG/2 ML (VERSED) VIAL ONE (09:42)
[2018-09-19] MEDS ORDERED: fentaNYL INJECTION 100 MCG/2 ML AMP ONE ×2 (09:42→11:58)
[2018-09-19] MEDS ORDERED: ONDANSETRON 4 MG/2 ML (SDV) Z0FRAN IVP PRN (10:30)
[2018-09-19] MEDS ORDERED: fentaNYL INJECTION 100 MCG/2 ML AMP IVP ONE ×2 (10:30→12:15)
[2018-09-19] MEDS ORDERED: morphine INJ 10 MG/ML 1ML (SYR OR VIAL) IVP ONE (10:30)
--- NOTE | 2018-09-19 10:30 | Consultation-Cardiology ---
HPI-Cardiology Cardiology Consultation Date of Consultation 09/19/18 Date of Admission Time Seen by Provider: 10:25 Indication: chest pain HPI 67 years old lady with history of coronary artery disease, had intervention done in February 2018. Patient reported having occasional episode of chest pain described as sharp pain on the left side of her chest lasting for few seconds and resolving spontaneously. Last episode occurred this morning. I was called for preoperative evaluation. The fact that patient has been off oral anticoagulation. Patient reported that she never took Plavix although it was prescribed to her on her discharge from the hospital and she picked it up from the [facility] but she does not recall taking that medication, she did not refill the medication in May. Has been compliant with her medications otherwise. Home Medications & Allergies Allergies: Coded Allergies: Sulfa (Sulfonamide Antibiotics) (Verified Allergy, Unknown, 01/13/18) adhesive (Verified Allergy, Unknown, 12/31/17) fentanyl adhesive pregabalin (Verified Allergy, Unknown, 12/31/17) meperidine (Verified Adverse Reaction, Intermediate, HALLUCINATIONS, ) Home Medication List Reviewed: Yes [id number] Hx Patient Social History Marital Status: Employed/Student: employed Alcohol Use: Denies Use Recreational Drug Use: No Smoking Status: Current Everyday Smoker Type Used: Cigarettes 2nd Hand Smoke Exposure: Yes Recent Foreign Travel: No Recent Infectious Disease Expo: No Recent Hopitalizations: No Immunizations Up To Date Tetanus Booster (TDap): Less than 5yrs Date of Pneumonia Vaccine: Feb 27, 2017 Date of Influenza Vaccine: Feb 09, 2018 Past Medical History past medical history as described below Family Medical History Significant Family History: Heart Disease Family History: Abdominal aortic aneurysm Alzheimer's disease 19 MOTHER Cardiovascular disease 19 FATHER ( AT 46 FROM HEART ATTACK) G8 SISTER Hypercholesterolemia 19 FATHER Hypertension 19 FATHER 19 MOTHER Myocardial infarction 19 FATHER Thyroid disease 19 MOTHER G8 SISTER Review of Systems Constitutional: no symptoms reported, see HPI EENTM: see HPI, no symptoms reported Respiratory: see HPI; No cough, No dyspnea on exertion, No hemoptysis, No orthopnea, No phlegm, No short of breath, No stridor, No wheezing, No other Cardiovascular: see HPI, chest pain; No edema, No Hx of Intervention, No palpitations, No syncope, No vascular heart diseas, No other Gastrointestinal: no symptoms reported, see HPI Genitourinary: see HPI Musculoskeletal: see HPI, joint pain, other (scheduled for knee surgery today) Skin: no symptoms reported, see HPI Psychiatric/Neurological: No Symptoms Reported, See HPI Physical Exam Vital Signs Vital Signs - First Documented 09/19/18 07:50 Temp 96.9 Pulse 77 Resp 16 B/P (MAP) 176/85 (115) Pulse Ox 95 O2 Delivery Room Air Capillary Refill : Height, Weight, BMI Height: 5'4.00" Weight: 143lbs. 2.0oz. 64.667681el; 24.6 BMI Method:Stated General Appearance: No Apparent Distress, WD/WN Eyes: Bilateral Eye Normal Inspection, Bilateral Eye PERRL, Bilateral Eye EOMI HEENT: PERRL/EOMI, TMs Normal, Normal ENT Inspection, Pharynx Normal Neck: Full Range of Motion, Normal Inspection, Non Tender, Supple, Carotid Bruit Respiratory: Chest Non Tender, Lungs Clear, Normal Breath Sounds, No Accessory Muscle Use, No Respiratory Distress Cardiovascular: Regular Rate, Rhythm, No Edema, No Gallop, No JVD, No Murmur, Normal Peripheral Pulses Gastrointestinal: Normal Bowel Sounds, No Organomegaly, No Pulsatile Mass, Non Tender, Soft Back: Normal Inspection, No CVA Tenderness, No Vertebral Tenderness Extremity: Normal Capillary Refill, Normal Inspection, Normal Range of Motion, Non Tender, No Calf Tenderness, No Pedal Edema 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: Alert, Oriented x3, No Motor/Sensory Deficits, Normal Mood/Affect Skin: Normal Color, Warm/Dry Lymphatic: No Adenopathy A/P-Cardiology Admission Diagnosis Chest pain Coronary artery disease Hypertension Hyperlipidemia Assessment/Plan Chest pain, has been on and off, reporting improvement at this time. EKG did not show any acute changes. I will continue to monitor postoperatively Preoperative evaluation for knee surgery, patient did not have acute EKG changes , her chest pain has been vague, short-lived for few seconds. Does not resemble angina. Coronary artery disease status post non-ST elevation myocardial infarction, cardiac catheterization on February 12, 2018 showing subtotal occlusion of the circumflex artery status post 2 stent deployment using Марина 2.518 mm and 2.25 18 mm overlapping stent expanded proximally to 2.7 mm and distally 2.51 mm with good results. Had moderate to severe stenosis at the mid LAD, repeat cardiac catheterization was done in April 2018 showing patent stent in the circumflex artery with tortuous LAD with 60-70 percent stenosis, at the mid to distal portion of the artery, the artery is less than 1.5 mm in diameter, tortuous right coronary artery with mild disease, medical therapy is recommended. Hypertension, restart home medication monitor Hyperlipidemia, Lipitor was decreased at 40 mg daily, monitor lipids Moderate carotid stenosis, noted on ultrasound on December 31, 2017. Continue to monitor Echocardiogram was done on December 31, 2017 showing normal left ventricular size with ejection fraction 55-65 percent, mild MR, [id number] TR, PA pressure of 40 mmHg. Shortness of breath, history of COPD, active smoker but cutting down she is down to about 3-4 cigarettes a day. Encouraged to stop smoking. Peptic ulcer disease, history of endoscopy managed by Dr. Schultz. History of generalized body ache. Maintained on pain medications. Managed by primary care physician. Strong family history of heart disease, multiple family members with CAD <55 y/o JOYCE TURNER MD September 19, 2018 10:30
[2018-09-19] MEDS ORDERED: ONDANSETRON 4 MG/2 ML (SDV) Z0FRAN ONE (11:07)
[2018-09-19] MEDS ORDERED: LIDOCAINE PF 2% 5 ML (XYLOCAINE) VIAL ONE (11:07)
[2018-09-19] MEDS ORDERED: proPOfol 200 MG/20 ML (DIPRIVAN) VIAL IV ONE (11:07)
[2018-09-19] MEDS ORDERED: SEVOFLURANE (ULTANE) 15 ML INHAL SOLN ONE (11:07)
[2018-09-19] MEDS ORDERED: DEXAMETHASONE 10 MG/ML (DECADRON) 1 ML VIAL ONE (11:07)
--- NOTE | 2018-09-19 13:00 | Anesthesia-General Post-Op ---
General Patient Condition Mental Status/LOC: Same as Preop Cardiovascular: Satisfactory Nausea/Vomiting: Absent Respiratory: Satisfactory Pain: Controlled Complications: Absent Post Op Complications Complications None Follow Up Care/Instructions Patient Instructions None needed. Anesthesia/Patient Condition Patient Condition Patient is doing well, no complaints, stable vital signs, no apparent adverse anesthesia problems. No complications reported per nursing. SIVAKUMAR CALIX CRNA September 19, 2018 13:00
[2018-09-19] MEDS ORDERED: HYDR-3063 PO (13:14)
--- NOTE | 2018-09-19 13:32 | Physical Therapy Ortho Eval ---
PT Orthopedic Evaluation Type of Surgery Knee Scope left side WBAT Prior Level of Function Current Living Status: Spouse Locomotion (Upon Admit): Independent Subjective Subjective Patient in bed pre tx, agrees to PT, has no complaints of pain at rest. Entry Into Home: Stairs Without Railing Steps Into Home: 3 Motor Control Motor Control: Motor Control WNL ROM left knee flexion 90 degrees, extension +3 degrees Transfer Transfers (B, C, W/C) (FIM): 5 Gait Gait Assistive Device: FWW Left Lower Extremity: Left Weight Bearing Status LLE: Weight Bearing/Tolerated Gait (FIM): 2 Distance: 100' Gait Level of Assist: 5 Summary/Comments Patient ambulated 100' with a rolling walker with SBA, slow ambulation, decreased stance time on left leg. Patient also went up and down 1 step using a rolling walker with SBA and cues for foot placement. Treatment Rendered Treatment: Therapeutic Exercises, Gait Train, Step Train Exercise Instruction: Quad Sets, Heel Slides, Ankle Pumps Assessment/Goals Goal Time Frame: 1 Visit Understands HEP: Yes Safe Ambulation: Yes Plan Treatment Plan: Discharge PT/Family Agrees to Plan: Yes Time Time In: 1306 Time Out: 1320 Total Billed Treatment Time: 14 Billed Treatment Time 1 visit VICENTE MALDONADO PT September 19, 2018 13:32
--- NOTE | 2018-09-19 18:53 | OPERATIVE REPORT ---
DATE OF SERVICE: 09/19/2018 PREOPERATIVE DIAGNOSES: 1. Left knee medial meniscus tear. 2. 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 3. Left knee chondromalacia of medial tibial plateau. POSTOPERATIVE DIAGNOSES: 1. Left knee medial meniscus tear. 2. 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 3. Left knee chondromalacia of medial tibial plateau. 4. Left knee lateral meniscus tear. 5. Left knee chondromalacia of lateral femoral condyle. PROCEDURES: 1. Left knee arthroscopic partial medial meniscectomy. 2. Left knee arthroscopic partial lateral meniscectomy. 3. Left knee arthroscopic chondroplasty of medial femoral condyle. 4. Left knee arthroscopic chondroplasty of medial tibial plateau. 5. Left knee arthroscopic chondroplasty of lateral femoral condyle. SURGEON: Eulogio Parada MD FLEXIBLE NANNY: ALINA Valderrama, who assisted throughout the procedure and closed the incisions. ANESTHESIA: General endotracheal. TOURNIQUET TIME: Not applicable. ESTIMATED BLOOD LOSS: Minimal. DRAINS: None. COMPLICATIONS: None. POSTOPERATIVE PLAN: Routine arthroscopy protocol. The patient was transported to the recovery room awake and in stable condition. STATEMENT OF MEDICAL NECESSITY: The patient is a 67-year-old female with complaints of left knee pain, catching, locking and swelling. She had a large effusion. She was tender along the medial joint line. She had pain medially with Zack. There are mild degenerative changes noted in her medial compartment and it was felt that she likely had a medial meniscus tear with associated chondromalacia and due to functional impairment and failure to improve with conservative measures, the patient elected to proceed with surgical intervention. Examination under anesthesia revealed range of motion of 0/2/130 with a negative Gus, negative anterior and posterior drawer. No varus valgus laxity, negative pivot shift. Arthroscopic findings, the patella demonstrated diffuse grade II chondral loss with no unstable chondral flaps. The trochlea demonstrated no gross chondral abnormalities. The medial and lateral gutters were clear. The ACL and PCL were intact. The medial compartment demonstrated a complex tear of the posterior horn of the medial meniscus involving approximately one-third of the posterior horn. In addition, there were grade II to III chondral flaps in the central portion of the femoral condyle and tibial plateau and adjacent 15 x 10 areas. The lateral compartment demonstrated a tear of the posterior horn of the lateral meniscus involving approximately 20% of the posterior horn with associated grade II chondral flap in the central portion of the femoral condyle in a 10 x 15 area. PROCEDURE IN DETAIL: After risks and benefits of the procedure were discussed and questions were answered and informed consent was signed and placed on chart. The operative site was confirmed in the preoperative holding area initialed by the surgeon. The patient was then transported to the operating room and after adequate levels of general endotracheal anesthetic were obtained, a timeout was called confirming the operative site. Examination under anesthesia was performed with the above findings noted. Left lower extremity was prepped and draped in the usual sterile fashion. The knee joint was injected with 60 mL of fluid. Standard inferolateral portal was placed with the arthroscope under direct visualization and inferior medial portal was created. The menisci and cruciates were carefully probed with the above findings noted. The unstable chondral flaps on the lateral femoral condyle were debrided with a shaver back to a stable edge. The posterior horn of the lateral meniscus was debrided with a shaver back to a stable edge. This was carefully probed with no further tearing or instability noted. The scope was redirected into the medial compartment and the unstable chondral flaps on the medial femoral condyle and medial tibial plateau were debrided with a shaver back to a stable edge. The medial meniscus was debrided with biter and shaver, removed approximately one-third of the posterior horn. This was carefully probed with no further tearing or instability noted. The knee was copiously irrigated and the portal sites were closed with 4-0 nylon in simple interrupted fashion. The knee was injected with Duramorph. The portal sites were infiltrated with plain Marcaine. A soft dressing was applied and the patient was transported to the recovery room awake and in stable condition. Job ID: [id number] DocumentID: [id number] Dictated Date: 09/19/2018 11:29:58 Color Weigher Date: 09/19/2018 18:52:51 Dictated By: EULOGIO PARADA MD
== END 2018-09-19 13:38 | disposition home or self-care (01) ==
LOC: SDC 07:24
PROVIDERS: ATTEND Orthopaedic Surgery
DX: S83.282A Other tear of lateral meniscus, current injury, left knee, initial encounter (principal); S83.242A Other tear of medial meniscus, current injury, left knee, initial encounter; M25.462 Effusion, left knee; M94.262 Chondromalacia, left knee; K58.1 Irritable bowel syndrome with constipation; I10 Essential (primary) hypertension; M54.9 Dorsalgia, unspecified; G89.29 Other chronic pain; F32.9 Major depressive disorder, single episode, unspecified; I25.2 Old myocardial infarction; G62.9 Polyneuropathy, unspecified; J44.9 Chronic obstructive pulmonary disease, unspecified; I25.119 Atherosclerotic heart disease of native coronary artery with unspecified angina pectoris; Z88.5 Allergy status to narcotic agent; Z88.2 Allergy status to sulfonamides; Z87.891 Personal history of nicotine dependence; E78.5 Hyperlipidemia, unspecified; Z79.899 Other long term (current) drug therapy; Z79.82 Long term (current) use of aspirin; Z87.442 Personal history of urinary calculi; Z87.440 Personal history of urinary (tract) infections; Z96.651 Presence of right artificial knee joint; Z95.5 Presence of coronary angioplasty implant and graft; X58.XXXA Exposure to other specified factors, initial encounter
CPT/HCPCS: 93005

== ENCOUNTER → 2018-11-23 | Outpatient (CLI) | payer MEDICARE, MEDICAID ==
[~2018-11-23] MED LIST changes: +HYDR-3063 PO; -TRAZ-189 PO; +TRAZ-222 PO
[2018-11-23 12:37] LABS: ALBUMIN 4.2 GM/DL (3.2-4.5); BILIRUBIN,DIRECT 0.2 MG/DL (0.0-0.3); BILIRUBIN,INDIRECT 0.1 MG/DL; BILIRUBIN,TOTAL 0.3 MG/DL (0.1-1.0); TOTAL PROTEIN 7.2 GM/DL (6.4-8.2)
== END ==
LOC: LAB 11:51
PROVIDERS: ATTEND Internal Medicine Cardiovascular Disease
DX: I25.10 Atherosclerotic heart disease of native coronary artery without angina pectoris (principal); I10 Essential (primary) hypertension; M51.16 Intervertebral disc disorders with radiculopathy, lumbar region; E78.2 Mixed hyperlipidemia
CPT/HCPCS: 36415; 80061; 80076

== ENCOUNTER 2019-01-03 06:08 | Outpatient (CLI) | payer MEDICARE, MEDICAID ==
[~2019-01-03] VITALS: Ht 162.6 cm; Wt 61.7 kg
[~2019-01-03 06:08] MED LIST changes: +RANI-324 PO; +RANI-613 PO; -RANI150T46 PO; -RANI75TA21 PO; -TIZA4TAB3 PO; +TIZA4TAB4 PO
[2019-01-03 10:16] VITALS: BP 102/64
[2019-01-03 10:56] LABS: BASOPHILS % (AUTO) 1 % (0-10); EOSINOPHILS # (AUTO) 0.3 10^3/uL (0.0-0.3); EOSINOPHILS % (AUTO) 5 % (0-10); HEMATOCRIT 41 % (35-52); HEMOGLOBIN 13.5 G/DL (11.5-16.0); LYMPHOCYTES # (AUTO) 1.9 X 10^3 (1.0-4.0); LYMPHOCYTES % (AUTO) 28 % (12-44); MEAN CORPUSCULAR HEMOGLOBIN 32 PG (25-34); MEAN CORPUSCULAR HGB CONC 33 G/DL (32-36); MEAN CORPUSCULAR VOLUME 97 FL (80-99); MEAN PLATELET VOLUME 10.4 FL (7.4-10.4); MONOCYTES # (AUTO) 1.1 X 10^3 (0.0-1.0); MONOCYTES % (AUTO) 17 % (0-12); NEUTROPHILS # (AUTO) 3.3 X 10^3 (1.8-7.8); NEUTROPHILS % (AUTO) 49 % (42-75); PLATELET COUNT 206 10^3/uL (130-400); RED CELL DISTRIBUTION WIDTH 12.8 % (10.0-14.5); WHITE BLOOD COUNT 6.7 10^3/uL (4.3-11.0)
[2019-01-03 11:00] LABS: BILIRUBIN,URINE NEGATIVE (NEGATIVE); CLARITY,URINE CLEAR; COLOR,URINE YELLOW; GLUCOSE, URINE (UA) NEGATIVE (NEGATIVE); KETONES,URINE NEGATIVE (NEGATIVE); LEUKOCYTE ESTERASE ,URINE 2+ (NEGATIVE); NITRITE,URINE NEGATIVE (NEGATIVE); PH,URINE 6 (5-9); PROTEIN,URINE 2+ (NEGATIVE); UROBILINOGEN,URINE NORMAL (NORMAL)
[2019-01-03] MEDS ORDERED: HYDR-3816 PO (11:10)
[2019-01-03 11:14] LABS: BACTERIA,URINE TRACE /HPF; HYALINE CASTS, URINE 25-50 /LPF
[2019-01-03 11:15] LABS: ALANINE AMINOTRANSFERASE 29 U/L (0-55); ALKALINE PHOSPHATASE 64 U/L (40-136); BILIRUBIN,TOTAL 0.4 MG/DL (0.1-1.0); BUN/CREATININE RATIO 11; CALCIUM 9.3 MG/DL (8.5-10.1); CARBON DIOXIDE 25 MMOL/L (21-32); CHLORIDE 101 MMOL/L (98-107); CREATININE SERUM 0.82 MG/DL (0.60-1.30); GFR ESTIMATED > 60; GLUCOSE 96 MG/DL (70-105); POTASSIUM 3.2 MMOL/L (3.6-5.0); SODIUM 135 MMOL/L (135-145); TOTAL PROTEIN 7.2 GM/DL (6.4-8.2)
[2019-01-03 11:16] LABS: PROTHROMBIN TIME PATIENT 13.2 SEC (12.2-14.7)
--- NOTE | 2019-01-03 11:51 | Diagnostic Imaging Report ---
CLINICAL INDICATION: Preop chest x-ray for left total knee arthroplasty. No chest complaints. EXAM: Chest x-ray PA and lateral views. COMPARISONS: Chest x-ray dated 04/18/2018. FINDINGS: Lungs/pleura: Lungs are clear. There is no pneumothorax. There is no pleural effusion. Mediastinum: Unremarkable. Pulmonary vasculature: Unremarkable. Heart: Unremarkable. Bones/extrathoracic soft tissue: There are small spurs involving the thoracic spine. IMPRESSION: There is no radiographic evidence of acute cardiopulmonary process. Dictated by: Dictated on workstation # [id number]
[2019-01-03 12:03] LABS: ERYTHROCYTE SEDIMENTATION RATE 21 MM/HR (0-30)
[2019-01-04] MEDS ORDERED: AMLO5TAB9 PO (11:26)
[2019-01-04] MEDS ORDERED: VITA400C60 PO (11:28)
[2019-01-04] MEDS ORDERED: OMG1KC PO (11:28)
[2019-01-04] MEDS ORDERED: LORA10TA76 PO (11:28)
[2019-01-04] MEDS ORDERED: METH500T7 PO (11:28)
== END 2019-01-03 11:00 | disposition home or self-care (01) ==
LOC: PREOP 06:08
PROVIDERS: ATTEND Orthopaedic Surgery
DX: Z01.812 Encounter for preprocedural laboratory examination (principal); Z01.810 Encounter for preprocedural cardiovascular examination; M17.12 Unilateral primary osteoarthritis, left knee
CPT/HCPCS: 36415; 71046; 80053; 81000; 85025; 85610; 85652; 86850; 86900; 86901; 87081; 87088

== ENCOUNTER 2019-01-09 07:41 | Inpatient (IN) | payer MEDICARE, MEDICAID ==
--- NOTE | 2019-01-02 18:34 | HISTORY AND PHYSICAL ---
DATE OF SERVICE: ADMISSION HISTORY AND PHYSICAL DATE OF ADMISSION: 01/09/2019. This will be for inpatient admission on 01/09/2019, for left total knee arthroplasty. The patient will require regular inpatient admission for pain management issues, gait abnormalities and comorbidities. HISTORY OF PRESENT ILLNESS: The patient is a 68-year-old female with progressively worsening left knee pain. She has undergone treatment with injections, arthroscopy and anti-inflammatories without relief. Radiographs reveal moderate tricompartmental osteoarthritis. Due to functional impairment and failure to improve with conservative measures, the patient elected to proceed with surgical intervention. The patient understands that this may not alleviate all of her symptoms. She does have lumbar radiculopathy as well. REVIEW OF SYSTEMS: No chest pain, no shortness of breath, no dysuria. PAST MEDICAL HISTORY: Constipation, hypertension, irritable bowel syndrome, kidney stones, UTI, migraine headaches, chronic pain, back pain, depression, and coronary artery disease. PAST SURGICAL HISTORY: Hysterectomy, , right total knee arthroplasty, tonsillectomy, abdominal adhesions, left foot bunionectomy, and coronary stent placement. FAMILY HISTORY: Significant for coronary artery disease, thyroid disorder, hypertension, and cancer. PRIMARY CARE PROVIDER: Dr. Cho. ADDITIONAL MEDICATIONS: Linzess, Norvasc, Periactin, ibuprofen, losartan, lisinopril, atorvastatin, Spiriva, Delzicol, hydrocodone, Percocet, Levaquin, Effexor, , Cymbalta, potassium, Zantac, Lyrica, and Macrodantin. ALLERGIES: FENTANYL, SULFA, DEMEROL, AND LYRICA. SOCIAL HISTORY: The patient denies alcohol or tobacco use. PHYSICAL EXAMINATION: GENERAL: The patient is a well-developed, well-nourished, in no acute distress. HEENT: Normocephalic, atraumatic. NECK: Supple, no lymphadenopathy. LUNGS: Clear to auscultation bilaterally. HEART: Regular rate and rhythm. ABDOMEN: Soft, nontender, nondistended. EXTREMITIES: Left knee demonstrates moderate effusion. She is markedly tender along the medial joint line, markedly positive Zack's with mild patellofemoral crepitus. Range of motion is 0/2/140. She is ligamentously stable in all planes. She ambulates with an antalgic gait. IMPRESSION: Left knee osteoarthritis, unresponsive to conservative measures. PLAN: Left total knee arthroplasty. The risks, benefits, options, ramifications and recovery have been discussed at length with the patient. She understands and wishes to proceed. Job ID: [id number] DocumentID: [id number] Dictated Date: 12/30/2018 14:53:59 Metalizing Machine Operator Automatic Date: 12/30/2018 15:28:22 Dictated By: ALBARO PARADA MD
--- NOTE | 2019-01-04 11:30 | NUR ---
CALLED AND SPOKE WITH THE PATIENT. WE WENT OVER THE EXT MED HX AND SHE VERIFIED HOW SHE TAKES THEM. SHE FILLED PROTONIX 40MG #90 12-31-18 BUT STATES SHE IS NO LONGER TAKING IT, IT CAUSED SEVERE DIARRHEA. IN ADDITION TO WHAT IS SHOWN ON THE EXT MED HX [facility] FILLED METHOCARBAMOL 500MG TID 12-14-18. SHE ALSO STATES SHE USES A PROAIR INHALER NEEDED. OTC MEDS: ASPIRIN 81MG DAILY CLARITIN PRN FISH OIL DAILY VITAMIN E DAILY
[2019-01-09] VITALS (14 sets, daily range): BP systolic 118–159; BP diastolic 66–81
[~2019-01-09] VITALS: Ht 162.6 cm; Wt 61.7 kg
[~2019-01-09 07:41] MED LIST changes: +HYDR-3816 PO; +LORA10TA76 PO; +VITA400C60 PO
[2019-01-09] MEDS ORDERED: LACTATED RINGERS 1,000 ML IV PRN (07:51)
[2019-01-09] MEDS ORDERED: CEFUROXIME INJECTION 1,500 MG in WATER (STERILE) FOR INJECTION 15 ML IV ONE (08:00)
[2019-01-09] MEDS ORDERED: OXYC-471 PO (08:14)
[2019-01-09] MEDS ORDERED: ESOM40CA52 PO (08:14)
[2019-01-09] MEDS ORDERED: MIDAZOLAM 2 MG/2 ML (VERSED) VIAL IV ONE (08:30)
[2019-01-09] MEDS ORDERED: LIDOCAINE PF 2% 5 ML (XYLOCAINE) VIAL ONE (08:32)
[2019-01-09] MEDS ORDERED: proPOfol 200 MG/20 ML (DIPRIVAN) VIAL IV ONE (08:32)
[2019-01-09] MEDS ORDERED: SEVOFLURANE (ULTANE) 15 ML INHAL SOLN ONE ×4 (08:32→10:44)
[2019-01-09] MEDS ORDERED: fentaNYL INJECTION 100 MCG/2 ML AMP ONE (08:34)
[2019-01-09] MEDS ORDERED: MIDAZOLAM 2 MG/2 ML (VERSED) VIAL ONE (08:35)
--- NOTE | 2019-01-09 09:12 | Progress Note-Pre Operative ---
Pre-Operative Progress Note H&P Reviewed The H&P was reviewed, patient examined and no changes noted. Date Seen by Provider: Jan 09, 2019 Time Seen by Provider: 09:11 Date H&P Reviewed: Jan 09, 2019 Time H&P Reviewed: 09:11 Pre-Operative Diagnosis: left knee primary osteoarthritis ALBARO PARADA MD Jan 09, 2019 09:12
--- NOTE | 2019-01-09 09:14 | Progress Note-Post Operative ---
Post-Operative Progess Note Surgeon (s)/Associate Director (s) Surgeon ALBARO PARADA MD Associate Director: Fredrick Apple Pre-Operative Diagnosis left knee primary osteoarthritis Post-Operative Diagnosis left knee primary osteoarthritis Procedure & Operative Findings Date of Procedure 01/09/19 Procedure Performed/Findings left total knee arthroplasty Anesthesia Type GETA Estimated Blood Loss Estimated blood loss (mL): minimal Specimens/Packing Specimens Removed none Packing: none ALBARO PARADA MD Jan 09, 2019 09:14
--- NOTE | 2019-01-09 09:17 | D/C HH Face to Face Order ---
D/C Face to Face Orders Reconcile Patient Problems Problems Reviewed?: Yes Instructions for Patient Via [facility] [employer], Patient Instructions/FollowUp: three weeks Physician to follow Patient: three weeks Discharge Diet for Home: Regular Diet Patient Data-Allergies,Ht & Wt Patient Allergies: Coded Allergies: Sulfa (Sulfonamide Antibiotics) (Verified Allergy, Unknown, 01/13/18) adhesive (Verified Allergy, Unknown, 12/31/17) fentanyl adhesive pregabalin (Verified Allergy, Unknown, 12/31/17) meperidine (Verified Adverse Reaction, Intermediate, HALLUCINATIONS, 09/19/18) amoxicillin (Unverified Adverse Reaction, Unknown, 01/09/19) clavulanic acid (Unverified Adverse Reaction, Unknown, 01/09/19) pantoprazole (Verified Adverse Reaction, Unknown, SEVERE DIARRHEA, 01/04/19) Height (Feet): 5 Height (Inches): 4.00 Weight (Pounds): 136 Weight (Ounces): 0.0 Home Health Need/Face to Face Date of Face to Face: Jan 09, 2019 Clinical Findings: Instability, Muscle weakness, Non or partial weight bearing, Pain with ambulation, Unsteady gait I have seen Pt [id number]: Yes Discharged To: Home Diagnosis/Conditions: left total knee arthroplasty Patient is Homebound due to: Ivan fall risk due to instabilty, Muscle weakness, Pain w/ambulation Homebound Status Due to the above stated illness, injury or surgical procedure (medical condition or diagnosis) and associated clinical findings, the patient is homebound because of his/her inability to leave home except with aid of a supportive device and/or person AND leaving the home requires a considerable and taxing effort or is medically contraindicated. Pt req the following assistanc: Walker Home Health Nursing Orders Home Health Services Order: Physical Therapy-Evaluate & Treat DC left knee jg and apply steri strips 01/22/19 Home Health Infusion Therapy Line Start Date: Jan 09, 2019 Therapy Orders Therapy Orders: Physical Therapy, PT to assess for OT Therapy Specific Orders: Eval assistive deivces, Gait training, Increase strength/endurance, Provider maintenance therapy, Restore ROM Certify Stmt I certify that this patient is under my care and that I, a nurse practitioner or a physician; a plumber assistant working with me, had a face to face encounter that - meets the physician face to face encounter requirements with this patient as dated. ALBARO PARADA MD Jan 09, 2019 09:17
[2019-01-09] MEDS ORDERED: INTRA-ARTICULAR IU ONE ×5 (09:30)
[2019-01-09] MEDS ORDERED: ONDANSETRON 4 MG/2 ML (SDV) Z0FRAN IVP PRN ×2 (09:30→11:15)
[2019-01-09] MEDS ORDERED: ACETAMINOPHEN 325 MG TABLET PO PRN (09:30)
[2019-01-09] MEDS ORDERED: diphenhydrAMINE 50 MG/ML INJ (BENADRYL) IVP PRN (09:30)
[2019-01-09] MEDS ORDERED: morphine PCA 100 MG/100 ML BAG IV PRN (09:30)
[2019-01-09] MEDS ORDERED: TRANEXAMIC ACID 100 MG/ML 10 ML INJECTION IV ONE (09:31)
[2019-01-09] MEDS ORDERED: ONDANSETRON 4 MG/2 ML (SDV) Z0FRAN ONE (10:44)
[2019-01-09] MEDS ORDERED: DEXAMETHASONE 10 MG/ML (DECADRON) 1 ML VIAL ONE (10:44)
[2019-01-09] MEDS ORDERED: morphine INJ 10 MG/ML 1ML (SYR OR VIAL) ONE (11:01)
[2019-01-09] MEDS ORDERED: morphine INJ 10 MG/ML 1ML (SYR OR VIAL) IVP ONE (11:15)
[2019-01-09] MEDS ORDERED: HYDROmorphone 2 MG/ML VIAL (DILAUDID) ONE (11:26)
[2019-01-09] MEDS ORDERED: HYDROmorphone 2 MG/ML VIAL (DILAUDID) IV ONE (11:45)
--- NOTE | 2019-01-09 11:46 | Progress Note ---
Standard Progress Note Progress Notes/Assess & Plan Date Seen by a Provider: Jan 09, 2019 Time Seen by a Provider: 11:45 Progress/Assessment & Plan post op check no complaints radiographs--HW well positioned without fracture LLE--equal DP pulse with brisk cap refill. Intact DF and PF of toes and ankle with sensation intact to light touch throughou s/p LTKA mobilize as able ALBARO PARADA MD Jan 09, 2019 11:46
--- NOTE | 2019-01-09 12:20 | Diagnostic Imaging Report ---
EXAMINATION: Left knee 1110h. INDICATION: Postop AP and lateral views of the left knee were received from the OR. There are no prior studies available For comparison. There is a total knee prosthesis in place. The prosthetic components appear to be in good position. There is gas about the knee joint and there are skin jg along the anterior aspect of the knee joint. There are also fairly well-circumscribed lucencies extending longitudinally through the distal femur and the proximal tibia on the lateral view. These may well be related to the patient's surgical procedure as well. There is no fracture identified. IMPRESSION: There are postoperative changes consistent with a left knee arthroplasty. There is no acute bony abnormality appreciated. Dictated by: Dictated on workstation # [id number]
[2019-01-09] MEDS: NS IV 1000 ML 1,000 ML IV SCH ×2 (13:06→21:13)
--- NOTE | 2019-01-09 13:45 | Physical Therapy Evaluation ---
PT Evaluation-General Medical Diagnosis Admission Date Jan 09, 2019 at 07:41 Medical Diagnosis: left TKA Onset Date: Jan 09, 2019 Therapy Diagnosis Therapy Diagnosis: impaired mobility, strength, endurance, ROM Height/Weight Height (Feet): 5 Height (Inches): 4.00 Weight (Pounds): 136 Weight (Ounces): 0.0 Precautions Precautions/Isolations: Fall Prevention, Standard Precautions Referral Physician: Fredrick Apple APRN Reason for Referral: Evaluation/Treatment Medical History Pertinent Medical History: HTN Additional Medical History PAST MEDICAL HISTORY: Constipation, hypertension, irritable bowel syndrome, kidney stones, UTI, migraine headaches, chronic pain, back pain, depression, and coronary artery disease. PAST SURGICAL HISTORY: Hysterectomy, , right total knee arthroplasty, tonsillectomy, abdominal adhesions, left foot bunionectomy, and coronary stent placement. Social History Home: Single Level Current Living Status: Spouse Entry Into Home: Stairs With Railing PT Steps Into Home: 4 Prior/Core FIM Prior Level of Function Therapy Code Descriptions/Definitions Functional [place] Measure: 0=Not Assessed/NA 4=Minimal Assistance 1=Total Assistance 5=Supervision or Setup 2=Maximal Assistance 6=Modified [place] 3=Moderate Assistance 7=Complete [place] Therapy Quality Codes: 6 Independent with activity with or without an assistive device 5 Patient requires set up or clean up by helper. Patient completes activity by themselves 4 Supervision or touching assist (CGA). [place] provide cues , steadying assist 3 The helper provides less than half the effort to complete the activity 2 The helper provides more than half the effort to complete the activity 1 Dependent. The helper does all the effort to complete an activity 7 Patient refused to complete or attempt activity 9 The patient did not perform the activity before the current illness or injury 88 Not attempted due to Medical conditions or safety concerns Functional Abilities and Goals: Independent: Patient completed the activities by him/herself, with or without an assistive device, with no assistance from a helper. Needed Some Help: Patient needed partial assistance from another person to complete activities. Dependent: A helper completed the activities for the patient. Unknown: Not Applicable: Bed Mobility: 7 Transfers (B,C,W/C) (FIM): 7 Gait: 6 Indoor Mobility (Ambulation): Independent Stairs: Independent Patient states she was using a SPC previously. PT Evaluation-Current Subjective Patient in bed pre tx, agrees to PT, has 8/10 pain in left knee, nurse is aware of the pain and later comes into room to adjust her pain pump. Patient states she needs to use the restroom. Pt/Family Goals to be independent at home Objective Patient Orientation: Person, Place, Situation Attachments: IV ROM/Strength ROM Lower Extremities left knee flexion 90 degrees, extension +4 degrees Strength Lower Extremities Patient states that she cannot dorsiflex her left ankle but does so during exercises. Sensory Vision: Wears Glasses Hearing: Functional Sensation Right Lower Extremit: Intact Sensation Left Lower Extremity: Intact Transfers Therapy Code Descriptions/Definitions Functional [place] Measure: 0=Not Assessed/NA 4=Minimal Assistance 1=Total Assistance 5=Supervision or Setup 2=Maximal Assistance 6=Modified [place] 3=Moderate Assistance 7=Complete [place] Transfers (B, C, W/C) (FIM): 4 Scootin Rollin Supine to/from Sit: 4 Sit to/from Stand: 4 CGA for sit to stand, min assist for supine <-> sit. Some dizziness with sitting and standing, patient is impulsive. Gait Mode of Locomotion: Walk Anticipated Mode of Locomotion: Walk Gait (FIM): 1 Distance: 10'x2 Gait Level of Assist: 4 Gait Assistive Device: FWW Comments/Gait Description Patient is able to bear weight on her left leg. She ambulates to the bathroom door and does not allow therapist to go into the bathroom with her even after education about safety. Patient is extremely agitated seemingly for no reason. After going to the bathroom she ambulates back to the bed. Balance Sitting Static: Normal Sitting Dynamic: Normal Standing Static: Good Standing Dynamic: Good Treatment Supine exercises LLE TKA protocol x10 (AP, HS, QS, SAQ, SLR). Patient is draped with blanket during exercises to maintain her privacy. Patient CPM donned and fit to patient's leg and set to 50/-2. Polar care donned. Assessment/Needs Patient has impaired mobility, strength, endurance, ROM post TKA. Patient is able to bear weight and take good steps. Rehab Potential: Fair PT Short Term Goals Short Term Goals Time Frame: Jan 16, 2019 Transfers (B,C,W/C) (FIM): 5 Gait (FIM): 2 Gait Distance Comment: 50' Gait Level of Assist: 5 Gait Assistive Device: FWW PT Plan Problem List Problem List: Activity Tolerance, Functional Strength, Safety, Balance, Gait, Transfer, Bed Mobility, ROM Treatment/Plan Treatment Plan: Continue Plan of Care Treatment Plan: Bed Mobility, Education, Functional Activity Devaughn, Functional Strength, Gait, Safety, Therapeutic Exercise, Transfers Treatment Duration: Jan 16, 2019 Frequency: 11 times per week Estimated Hrs Per Day: .25 hour per day Patient and/or Family Agrees t: Yes Safety Risks/Education Patient Education: Gait Training, Transfer Techniques, Correct Positioning, Safety Issues Teaching Recipient: Patient Teaching Methods: Demonstration, Discussion Response to Teaching: Reinforcement Needed Discharge Recommendations Plan Patient will perform bed mobility and transfer training, balance and endurance training, functional strengthening, stair training, gait training, and education, to improve functional mobility and independence at home. Therapy D/C Recommendations: Home w/ Family Support Time/GCodes Time In: 1308 Time Out: 1336 Total Billed Treatment Time: 28 Total Billed Treatment 1 visit MILLICENTL 20' GT 8' VICENTE PRINGLE PT Jan 09, 2019 13:45
[2019-01-09] MEDS: oxyCODONE/APAP 5/325MG (PERCOCET 5) TABLET PO PRN ×4 (14:03→22:45)
--- NOTE | 2019-01-09 15:49 | OPERATIVE REPORT ---
DATE OF SERVICE: 01/09/2019 PREOPERATIVE DIAGNOSIS: Left knee primary osteoarthritis. POSTPERATIVE DIAGNOSIS: Left knee primary osteoarthritis. PROCEDURE: Left total knee arthroplasty. SURGEON: Eulogio Parada MD STRETCHER DRIER OPERATOR: Fredrick Apple, who assisted throughout the procedure and closed the incision. ANESTHESIA: General endotracheal by Crista Herring CRNA. TOURNIQUET TIME: 60 minutes at 300 mmHg. ESTIMATED BLOOD LOSS: Minimal. DRAINS: None. COMPLICATIONS: None. POSTOPERATIVE PLAN: Routine protocol. The patient was transferred to the recovery room awake and in stable condition. MATERIALS: Microport cemented size 4 femur, cemented size 4 tibia with 10 mm insert and cemented size 32 patellar button. STATEMENT OF MEDICAL NECESSITY: The patient is a 68-year-old female with longstanding progressive left knee pain, swelling and activity limitations. She has undergone treatment with arthroscopy and injections without relief. She reported functional impairment, which had progressed to the point where it is interfering with her activities of daily living and because of this, the patient elected to proceed with surgical intervention. DESCRIPTION OF PROCEDURE: After risks and benefits of procedure were discussed and questions were answered and informed consent was signed and placed on the chart, the operative site was confirmed in the preoperative holding area initialed by the surgeon. The patient was then transferred to the operating room and after adequate levels of general endotracheal anesthetic were obtained, a timeout was called, confirming the operative site. Left lower extremity was prepped and draped in the usual sterile fashion with the leg elevated and the knee flexed. Tourniquet was inflated to 300 mmHg. Standard anterior approach was utilized. Hemostasis was obtained with cautery. Medial parapatellar arthrotomy was performed leaving 1 cm cuff on the patella for later reattachment. A portion of the fat pad was resected. A subperiosteal release was performed on the proximal medial tibia being careful to stay on the bony surface. Intramedullary guide was passed into the femur and the distal cutting block was placed and distal cut was made and the femur sized to a size 4. The 4 cutting block was placed parallel to the epicondylar axis and cuts were made from posterior to anterior. A subperiosteal release was then carefully performed on the posterior distal femur, being careful to stay on the bony surface. Intramedullary guide was then passed into the tibia. The cutting block was placed. The drop maddie transected the intermalleolar axis. The cut was made. The four baseplate was placed and again the drop maddie transected the intermalleolar axis. This was then prepared with the drill and keel punch. The trials were inserted. The trochlear cut was made. A 10 mm insert was placed. The patella was prepared by resecting 10 mm off the undersurface. Peg guide was placed and peg holes were drilled. The patellar trial was placed. Full extension was easily obtained, 120 degrees of flexion with gravity was easily obtained. The patella tracked well. There was no anterior/posterior or medial/lateral laxity in flexion or extension. The trials were removed. The joint was irrigated with pulse lavage. The bone ends were irrigated and dried. The tibial baseplate was cemented into position. Excessive cement was removed. The superior surface was irrigated and dried and the polyethylene insert was placed. The femur was irrigated and dried and the femoral prosthesis was cemented into position. Excessive cement was removed. The knee was brought in full extension and held until the cement had cured. The undersurface of the patella was irrigated and dried and the patellar button was cemented into position. Once the cement had cured, the knee was taken through a range of motion. Full extension was easily obtained, 120 degrees of flexion with gravity was easily obtained. There was no anterior/posterior or medial/lateral laxity in flexion or extension and the patella tracked well. The joint was further irrigated with pulse lavage. The arthrotomy was closed with #2 [place] in a [id number] interrupted fashion. Knee was flexed with no new tension noted at the repair site. The patella tracked well. The subcutaneous tissues were then further irrigated with pulse lavage using a total of 6 liters throughout the procedure. A 0 Vicryl was used for deep subcutaneous tissue, 2-0 Vicryl for the superficial subcutaneous tissue, jg used on the skin. A soft dressing was applied. The tourniquet was deflated. The patient was transferred to the recovery room awake and in stable condition. Job ID: [id number] DocumentID: [id number] Dictated Date: 01/09/2019 11:06:35 [place] Date: 01/09/2019 15:47:50 Dictated By: EULOGIO PARADA MD
[2019-01-09] MEDS: CEFUROXIME INJECTION 750 MG in WATER (STERILE) FOR INJECTION 10 ML IV SCH (17:46)
[2019-01-09] MEDS: SENNA W/DOCUSATE (SENOKOT S) TABLET PO SCH (20:04)
[2019-01-10 00:28] VITALS: BP 158/76
[2019-01-10] MEDS: oxyCODONE/APAP 5/325MG (PERCOCET 5) TABLET PO PRN ×10 (00:46→21:43)
[2019-01-10] MEDS: CEFUROXIME INJECTION 750 MG in WATER (STERILE) FOR INJECTION 10 ML IV SCH (00:46)
[2019-01-10] MEDS: NS IV 1000 ML 1,000 ML IV SCH ×2 (02:50→12:22)
[2019-01-10 04:05] VITALS: BP 149/80
[2019-01-10] MEDS: MULTIVIT W/MINERALS TAB (THERAGRAN M) PO SCH (06:21)
[2019-01-10 06:41] LABS: HEMOGLOBIN 10.1 G/DL (11.5-16.0)
--- NOTE | 2019-01-10 07:48 | Anesthesia-General Post-Op ---
General Patient Condition Mental Status/LOC: Same as Preop Cardiovascular: Satisfactory Nausea/Vomiting: Absent Respiratory: Satisfactory Pain: Controlled Complications: Absent Post Op Complications Complications None Follow Up Care/Instructions Patient Instructions None needed. Anesthesia/Patient Condition Patient Condition Patient is doing well, no complaints, stable vital signs, no apparent adverse anesthesia problems. No complications reported per nursing. SIVAKUMAR CALIX CRNA Jan 10, 2019 07:48
--- NOTE | 2019-01-10 07:58 | Progress Note ---
Standard Progress Note Progress Notes/Assess & Plan Date Seen by a Provider: Jan 10, 2019 Time Seen by a Provider: 07:57 Progress/Assessment & Plan post op check no complaints radiographs--HW well positioned without fracture LLE--equal DP pulse with brisk cap refill. Intact DF and PF of toes and ankle with sensation intact to light touch throughou s/p LTKA mobilize as able Final Diagnosis no complaints Vital Signs Date Time Temp Pulse Resp B/P (MAP) Pulse Ox O2 Delivery O2 Flow Rate FiO2 01/10/19 06:22 18 01/10/19 04:05 98.3 82 18 149/80 (103) 95 Room Air 01/10/19 00:40 Room Air 01/10/19 00:28 98.7 92 18 158/76 (103) 97 Room Air 01/09/19 20:00 97.3 87 18 133/74 (93) 97 Room Air 01/09/19 19:41 18 01/09/19 16:00 98.3 98 18 148/78 (101) 97 Room Air 01/09/19 12:20 Room Air 01/09/19 12:20 Room Air 01/09/19 12:10 98.6 16 95 Room Air 01/09/19 12:10 Room Air 01/09/19 12:00 98.4 77 18 136/70 (92) 95 Room Air 01/09/19 12:00 16 99 Room Air 01/09/19 11:55 OxyMask 3 01/09/19 11:50 16 100 Room Air 01/09/19 11:40 OxyMask 5 01/09/19 11:40 16 100 Room Air 01/09/19 11:30 16 100 OxyMask 5 01/09/19 11:25 OxyMask 10 01/09/19 11:20 16 100 OxyMask 4 01/09/19 11:10 16 100 OxyMask 10 01/09/19 11:10 10 01/09/19 11:00 16 100 OxyMask 01/09/19 10:56 OxyMask 10 01/09/19 10:56 97.8 22 99 OxyMask 10 01/09/19 08:00 97.1 54 16 141/71 (94) 94 Room Air 01/09/19 08:00 97.1 54 16 141/71 94 Room Air I & O 01/10/19 07:00 Intake Total 3275 ml Output Total 1500 ml Balance 1775 ml Laboratory Tests Test 01/10/19 05:45 Range/Units Hemoglobin 10.1 #L 11.5-16.0 G/DL Hematocrit 31 L 35-52 % LLE--dressing intact. Neg Eric's. NVI distally s/p LTKA progressing well PT/OT ALBARO PARADA MD Jan 10, 2019 07:58
[2019-01-10 08:00] VITALS: BP 122/71
[2019-01-10] MEDS: ENOXAPARIN 30 MG/0.3 ML (LOVENOX) SYR SC SCH ×2 (08:02→19:23)
[2019-01-10] MEDS: ASPIRIN E.C. 81 MG (ECOTRIN) TAB PO SCH (08:02)
[2019-01-10] MEDS: SENNA W/DOCUSATE (SENOKOT S) TABLET PO SCH ×2 (08:02→19:23)
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
--- NOTE | 2019-01-10 10:48 | Physical Therapy Daily Note ---
PT Daily Note-Current Subjective Patient agrees to PT and reports she is up independent in room. Mental Status Patient Orientation: Normal For Age Attachments: IV Transfers Therapy Code Descriptions/Definitions Functional [place] Measure: 0=Not Assessed/NA 4=Minimal Assistance 1=Total Assistance 5=Supervision or Setup 2=Maximal Assistance 6=Modified [place] 3=Moderate Assistance 7=Complete [place] Therapy Quality Codes: 6 Independent with activity with or without an assistive device 5 Patient requires set up or clean up by helper. Patient completes activity by themselves 4 Supervision or touching assist (CGA). [place] provide cues , steadying assist 3 The helper provides less than half the effort to complete the activity 2 The helper provides more than half the effort to complete the activity 1 Dependent. The helper does all the effort to complete an activity 7 Patient refused to complete or attempt activity 9 The patient did not perform the activity before the current illness or injury 88 Not attempted due to Medical conditions or safety concerns Transfers (B, C, W/C) (FIM): 7 Scootin Rollin Supine to/from Sit: 7 Sit to/from Stand: 7 Gait Training Gait (FIM): 6 Distance (FIM): 3=150 ft Distance: 200' Gait Level of Assist: 6 Gait Assistive Device: Cane Single Point slight trunk flexed posture and antalgic gait sequence Exercises Supine Ex: Ankle pumps, Quad Set, Heel Slides, Straight leg raise Supine Reps: 12 Seated Therapy Exercises: Long arc quads Seated Reps: 15 Assessment Patient tolerated treatment well and declined CPM and polar pack placement this a.m. PT Short Term Goals Short Term Goals Time Frame: Jan 16, 2019 Transfers (B,C,W/C) (FIM): 5 Gait (FIM): 2 Gait Distance Comment: 50' Gait Level of Assist: 5 Gait Assistive Device: FWW PT Plan Treatment/Plan Treatment Plan: Continue Plan of Care Treatment Plan: Bed Mobility, Education, Functional Activity [place], Functional Strength, Gait, Safety, Therapeutic Exercise, Transfers Treatment Duration: Jan 16, 2019 Frequency: 11 times per week Estimated Hrs Per Day: .25 hour per day Patient and/or Family Agrees t: Yes Time/GCodes Time In: 945 Time Out: 1008 Total Billed Treatment Time: 23 Total Billed Treatment 1 visit EX 15 min GT 8 min ERICKA BULL PT Jan 10, 2019 10:48
[2019-01-10 12:00] VITALS: BP 152/72
--- NOTE | 2019-01-10 12:25 | Occupational Therapy Eval ---
OT Evaluation-General/PLF Medical Diagnosis Admission Date Jan 09, 2019 at 07:41 Medical Diagnosis: left TKA Onset Date: Jan 09, 2019 Therapy Diagnosis Therapy Diagnosis: impaired ADLs and functional mobility Height/Weight Height (Feet): 5 Height (Inches): 4.00 Weight (Pounds): 136 Weight (Ounces): 0.0 Precautions Precautions/Isolations: Fall Prevention, Standard Precautions Safety Interventions: None Referral Physician: Fredrick Apple APRN Referral Reason: Activity Tolerance, Self Care, Evaluation/Treatment, Strengthening/ROM Medical History Pertinent Medical History: HTN Reviewed History: Yes Social History Home: Single Level Current Living Status: Spouse Entry Into Home: Stairs Without Railing Steps Into Home: 2 ADL-Prior Level of Function Therapy Code Descriptions/Definitions Functional [place] Measure: 0=Not Assessed/NA 4=Minimal Assistance 1=Total Assistance 5=Supervision or Setup 2=Maximal Assistance 6=Modified [place] 3=Moderate Assistance 7=Complete [place] Therapy Quality Codes: 6 Independent with activity with or without an assistive device 5 Patient requires set up or clean up by helper. Patient completes activity by themselves 4 Supervision or touching assist (CGA). [place] provide cues , steadying assist 3 The helper provides less than half the effort to complete the activity 2 The helper provides more than half the effort to complete the activity 1 Dependent. The helper does all the effort to complete an activity 7 Patient refused to complete or attempt activity 9 The patient did not perform the activity before the current illness or injury 88 Not attempted due to Medical conditions or safety concerns Functional Abilities and Goals: Independent: Patient completed the activities by him/herself, with or without an assistive device, with no assistance from a helper. Needed Some Help: Patient needed partial assistance from another person to complete activities. Dependent: A helper completed the activities for the patient. Unknown: Not Applicable: ADL PLOF Comments Pt reports she was indpendent with ADLs prior to hospitalization, stating she has a "lawn chair" that she uses in the shower to sit on, occasionally pt states she needs help getting out of the tub/shower Self Care: Needed Some Help Functional Cognition: Independent DME/Equipment: Bath Chair ("lawn chair"), Tub/Shower DME/Equipment Comments Pt reported she ambulates with a cane prior to hospitalization Drive Self: No OT Current Status Subjective Pt laying in bed at start of session, agreeable to OT eval. Pt provided information on PLOF and home set up. When asked to remove socks during tx, pt stated "I have already done that for someone else this morning and I am not doing it again." Pain Numeric Pain Scale: 9 Mental Status/Objective Patient Orientation: Person, Place, Time, Situation Attachments: IV Current Hearing Aids: No Dentures/Partials: Yes Hand Dominance: Right Upper Extremity ROM shoulder flexion approximately 100 degrees, WNL elbows and wrist. Pt reports she is unable to place hands behind her head. Upper Extremity Coordination WNL opposition of thumb to all fingers. Upper Extremity Sensation Pt reports neuropathy in her feet, does not report any other sensation changes Upper Extremity Strength 3-/5 BUE MMT ADL-Treatment Therapy Code Descriptions/Definitions Functional [place] Measure: 0=Not Assessed/NA 4=Minimal Assistance 1=Total Assistance 5=Supervision or Setup 2=Maximal Assistance 6=Modified [place] 3=Moderate Assistance 7=Complete [place] Therapy Quality Codes: 6 Independent with activity with or without an assistive device 5 Patient requires set up or clean up by helper. Patient completes activity by themselves 4 Supervision or touching assist (CGA). [place] provide cues , steadying assist 3 The helper provides less than half the effort to complete the activity 2 The helper provides more than half the effort to complete the activity 1 Dependent. The helper does all the effort to complete an activity 7 Patient refused to complete or attempt activity 9 The patient did not perform the activity before the current illness or injury 88 Not attempted due to Medical conditions or safety concerns Lower Body Dressing (FIM): 5 (Pt refused to trial don/doff socks secondary to already completing task with someone else earlier this AM. Pt reports she refused help earlier, and was able to complete the task by herself.) Transfers (B, C, W/C) (FIM): 5 (SBA supine to sit. Pt denied standing trial. ) Other Treatments Pt laying in bed at start of session, OT completed eval and pt sat EOB approximately 1 min. Post OT session, pt laying in bed, call light in reach and needs met. Education OT Patient Education: Correct positioning, Energy conservation, Progress toward Goal/Update tx plan, Purpose of tx/functional activities, Transfer techniques Teaching Recipient: Patient Teaching Methods: Demonstration, Discussion Response to Teaching: Verbalize Understanding, Return Demonstration OT Short Term Goals Short Term Goals Time Frame: Jan 24, 2019 Bathing(FIM): 5 Bathing Location: L Arm, R Arm, L Upper Leg, R Upper Leg, L Lower Leg (including foot), R Lower Leg (including foot), Chest, Abdomen, Buttocks, Perineal Area Upper Body Dressing(FIM): 5 Lower Body Dressing(FIM): 5 Toileting(FIM): 5 Transfers (B,C,W/C) (FIM): 5 1=Demonstrate adherence to instructed precautions during ADL tasks. 2=Patient will verbalize/demonstrate understanding of assistive devices/modifications for ADL. 3=Patient will improve strength/tolerance for activity to enable patient to perform ADL's. OT Senior Field Service Engineer Goals Fdc Goals Time Frame: Jan 31, 2019 Bathing(FIM): 6 Bathing Location: L Arm, R Arm, L Upper Leg, R Upper Leg, L Lower Leg (including foot), R Lower Leg (including foot), Chest, Abdomen, Buttocks, Perineal Area Upper Body Dressing(FIM): 6 Lower Body Dressing(FIM): 6 Toileting(FIM): 6 Transfers (B,C,W/C) (FIM): 6 Toilet/Commode Transfer(FIM): 6 Additional Goals: 1-Demonstrate ADL Tasks, 2-Verbalize Understanding, 3- ImproveStrength/Devaughn 1=Demonstrate adherence to instructed precautions during ADL tasks. 2=Patient will verbalize/demonstrate understanding of assistive devices/modifications for ADL. 3=Patient will improve strength/tolerance for activity to enable patient to perform ADL's. OT Education/Plan Problem List/Assessment Assessment: Decreased Activ Tolerance, Decreased UE Strength, Impaired Self- Care Skills, Restricted Funct UE ROM Pt would benefit from skilled OT tx focusing on UE exercise, ADLs, and functional mobility/activities, in order to increase UE strength/endurance for increased independence in ADLs, functional activities, and functional mobility. Discharge Recommendations Plan/Recommendations: Continue POC Therapy Discharge Recommendati: Post Acute OT Equpiment Recommendations-D/C: Bath Chair Barriers to Progress pain Treatment Plan/Plan of Care Treatment,Training & Education: Yes Patient would benefit from OT for education, treatment and training to promote independence in ADL's, mobility, safety and/or upper extremity function for ADL's. Plan of Care: ADL Retraining, Functional Mobility, UE Funct Exercise/Act Treatment Duration: Jan 31, 2019 Frequency: 5 times per week Estimated Hrs Per Day: .25 hour per day Agreement: Yes Rehab Potential: Fair Time/GCodes Start Time: 11:43 Stop Time: 12:00 Total Time Billed (hr/min): 17 Billed Treatment Time 1, EVL X17min NISH BARAJAS OT Jan 10, 2019 12:25
--- NOTE | 2019-01-10 13:53 | NUR ---
IRF Evaluation Order received to evaluate patient for the ARU. Chart review complete and it appears patient is transferring independently and ambulating (200ft, SPC) with modified independence; therefore, patient does not require intensive therapies, at this time. Thank you for this referral.
--- NOTE | 2019-01-10 15:11 | NUR ---
CM/SS. Respond to consult for post hospital care plan. HHC: Coordinated with patient preferred agency, [facility]. Patient likely will discharge Monday or Monday, she indicates she will be having company Monday and does not want services to begin until Monday. Confirmed with Dr. Diez, he will update his orders to reflect o.k. for services to begin on Monday and this needs to be provided for [facility] per protocols. DME: Patient has FWW and cane. She uses a mesh seat in shower prior to surgery. Patient indicate no needs for this discharge unless situation changes to warrant review.
--- NOTE | 2019-01-10 15:34 | Physical Therapy Daily Note ---
PT Daily Note-Current Subjective Patient agrees to PT. Pain Numeric Pain Scale: 5-Moderate Pain Location: Left Location Body Site: Knee Pain Description: Acute Mental Status Patient Orientation: Normal For Age Attachments: IV Transfers Therapy Code Descriptions/Definitions Functional [place] Measure: 0=Not Assessed/NA 4=Minimal Assistance 1=Total Assistance 5=Supervision or Setup 2=Maximal Assistance 6=Modified [place] 3=Moderate Assistance 7=Complete [place] Therapy Quality Codes: 6 Independent with activity with or without an assistive device 5 Patient requires set up or clean up by helper. Patient completes activity by themselves 4 Supervision or touching assist (CGA). [place] provide cues , steadying assist 3 The helper provides less than half the effort to complete the activity 2 The helper provides more than half the effort to complete the activity 1 Dependent. The helper does all the effort to complete an activity 7 Patient refused to complete or attempt activity 9 The patient did not perform the activity before the current illness or injury 88 Not attempted due to Medical conditions or safety concerns Transfers (B, C, W/C) (FIM): 6 Scootin Rollin Supine to/from Sit: 6 Sit to/from Stand: 6 Gait Training Gait (FIM): 6 Distance (FIM): 3=150 ft Distance: 175' Gait Level of Assist: 6 Gait Assistive Device: Cane Single Point trunk flexed posture with gait, VC's for posture and heel contact left LE Exercises Supine Ex: Ankle pumps, Quad Set, Heel Slides, Straight leg raise Supine Reps: 15 Seated Therapy Exercises: Long arc quads Seated Reps: 15 Assessment Patient declined CPM and polar pack. Plan dismissal tomorrow to home with spouse. PT Short Term Goals Short Term Goals Time Frame: Jan 16, 2019 Transfers (B,C,W/C) (FIM): 5 Gait (FIM): 2 Gait Distance Comment: 50' Gait Level of Assist: 5 Gait Assistive Device: FWW PT Plan Treatment/Plan Treatment Plan: Continue Plan of Care Treatment Plan: Bed Mobility, Education, Functional Activity Devaughn, Functional Strength, Gait, Safety, Therapeutic Exercise, Transfers Treatment Duration: Jan 16, 2019 Frequency: 11 times per week Estimated Hrs Per Day: .25 hour per day Patient and/or Family Agrees t: Yes Time/GCodes Time In: 1436 Time Out: 1503 Total Billed Treatment Time: 27 Total Billed Treatment 1 visit EX 15 min GT 12 min JORGITO,ERICKA PT Jan 10, 2019 15:33
[2019-01-10 16:00] VITALS: BP 122/84
[2019-01-10 20:00] VITALS: BP 132/75
[2019-01-11 00:30] VITALS: BP 121/63
[2019-01-11] MEDS: oxyCODONE/APAP 5/325MG (PERCOCET 5) TABLET PO PRN ×4 (01:55→07:59)
[2019-01-11] MEDS: NS IV 1000 ML 1,000 ML IV SCH (02:47)
[2019-01-11 04:45] VITALS: BP 127/66
[2019-01-11] MEDS: MULTIVIT W/MINERALS TAB (THERAGRAN M) PO SCH (06:14)
[2019-01-11 06:24] LABS: HEMOGLOBIN 10.1 G/DL (11.5-16.0)
--- NOTE | 2019-01-11 07:05 | Progress Note ---
Standard Progress Note Progress Notes/Assess & Plan Date Seen by a Provider: Jan 11, 2019 Time Seen by a Provider: 07:04 Progress/Assessment & Plan post op check no complaints radiographs--HW well positioned without fracture LLE--equal DP pulse with brisk cap refill. Intact DF and PF of toes and ankle with sensation intact to light touch throughou s/p LTKA mobilize as able Final Diagnosis no complaints Vital Signs Date Time Temp Pulse Resp B/P (MAP) Pulse Ox O2 Delivery O2 Flow Rate FiO2 01/11/19 06:24 18 01/11/19 04:45 98.7 90 17 127/66 (86) 94 Room Air 01/11/19 00:30 97.1 87 17 121/63 (82) 9 Room Air 01/10/19 20:00 98.5 91 18 132/75 (94) 96 Room Air 01/10/19 19:22 Room Air 01/10/19 16:00 97.6 84 18 122/84 (97) 97 Room Air 01/10/19 12:00 98.0 82 18 152/72 (98) 96 Room Air 01/10/19 08:00 95 Room Air 01/10/19 08:00 97.9 85 18 122/71 (88) 95 Room Air I & O 01/11/19 07:00 Intake Total 4890 ml Output Total 1600 ml Balance 3290 ml Laboratory Tests Test 01/11/19 06:05 Range/Units Hemoglobin 10.1 L 11.5-16.0 G/DL Hematocrit 32 L 35-52 % LLE--incision clean and dry. No calf tenderness. Neg Jose's s/p LTKA doing well DC after PT today ALBARO PARADA MD Jan 11, 2019 07:05
[2019-01-11] MEDS ORDERED: morphine INJ 4 MG/ML 1 ML (VIAL/SYRINGE) IVP PRN (07:15)
--- NOTE | 2019-01-11 07:42 | NUR ---
PATIENT MORPHINE SEAM SEWER DISCONTINUED AT THIS TIME. 20 ML OF MORPHINE WASTED WITH ALIDA SCOTT. THIS RN WILL CONT. TO MONITOR THIS PATIENT UNTIL DISCHARGE TODAY.
[2019-01-11] MEDS: ENOXAPARIN 30 MG/0.3 ML (LOVENOX) SYR SC SCH (07:59)
[2019-01-11] MEDS: ASPIRIN E.C. 81 MG (ECOTRIN) TAB PO SCH (08:00)
[2019-01-11] MEDS: SENNA W/DOCUSATE (SENOKOT S) TABLET PO SCH (08:00)
--- NOTE | 2019-01-11 09:45 | Physical Therapy Progress Note ---
Therapy Progress Note Patient performing exercises independent upon PT arrival. Patient is compliant with exercises and ambulation with straight cane. Patient reports she has HEP issued prior and will begin home health next Monday. Patient dismissing to home. 1 visit (204) ERICKA BULL PT Jan 11, 2019 09:45
--- NOTE | 2019-01-11 20:36 | DISCHARGE SUMMARY ---
DATE OF SERVICE: DIAGNOSES: 1. Left knee primary osteoarthritis. 2. Hypertension. 3. Irritable bowel syndrome. 4. Kidney stones. 5. Urinary tract infections, history. 6. Migraines. 7. Chronic pain. 8. Depression. 9. Coronary artery disease. PROCEDURE: Left total knee arthroplasty. SUMMARY: The patient is a 68-year-old female, who underwent a left total knee arthroplasty on the day of admission. Postoperatively, she did well. At the time of discharge, her wound was clean and dry. She had no calf tenderness. Negative Homans sign. She cleared physical therapy. She was tolerating diet well and tolerating pain with oral pain medication. CONDITION AT DISCHARGE: Good. DISCHARGE DIET: Regular. FOLLOWUP: Followup is in three weeks. Home physical therapy has been arranged. ACTIVITIES: Weightbearing as tolerated with a walker. DISCHARGE MEDICATIONS: Home medications plus Percocet as needed for pain and aspirin. Job ID: [id number] DocumentID: [id number] Dictated Date: 01/11/2019 07:02:40 Suede Brusher Date: 01/11/2019 20:36:01 Dictated By: ALBARO PARADA MD
== END 2019-01-11 09:13 | disposition home or self-care (01) | DRG 470 ==
LOC: 4TH 07:41 → SURG 07:42 → 4TH 12:20
PROVIDERS: ADMIT Orthopaedic Surgery; ATTEND Orthopaedic Surgery
PROC: 0SRD0J9 Replacement of Left Knee Joint with Synthetic Substitute, Cemented, Open Approach (ICD-10-PCS; principal; 2019-01-09 09:49)
DX: M17.12 Unilateral primary osteoarthritis, left knee (principal); I10 Essential (primary) hypertension; I25.10 Atherosclerotic heart disease of native coronary artery without angina pectoris; I25.2 Old myocardial infarction; F17.210 Nicotine dependence, cigarettes, uncomplicated; E78.00 Pure hypercholesterolemia, unspecified; M54.9 Dorsalgia, unspecified; J43.9 Emphysema, unspecified; K21.0 Gastro-esophageal reflux disease with esophagitis; K58.1 Irritable bowel syndrome with constipation; G62.9 Polyneuropathy, unspecified; G43.909 Migraine, unspecified, not intractable, without status migrainosus; F50.9 Eating disorder, unspecified; F32.9 Major depressive disorder, single episode, unspecified; F41.9 Anxiety disorder, unspecified; D64.9 Anemia, unspecified; M81.0 Age-related osteoporosis without current pathological fracture; G89.29 Other chronic pain; Z96.651 Presence of right artificial knee joint; Z95.5 Presence of coronary angioplasty implant and graft; Z87.440 Personal history of urinary (tract) infections; Z87.442 Personal history of urinary calculi
CPT/HCPCS: 36415; 73560; 85014; 85018; 86850; 86900; 86901; 94664

== ENCOUNTER → 2019-05-01 | Outpatient (CLI) | payer MEDICARE, MEDICAID ==
[~2019-05-01] MED LIST changes: +ESOM40CA52 PO
--- NOTE | 2019-05-01 15:10 | Diagnostic Imaging Report ---
PROCEDURE: MRI lumbar spine. TECHNIQUE: Multiplanar, multisequence MRI of the lumbar spine was performed without contrast. INDICATION: Low back pain and neuropathy. COMPARISON: Correlation is made with prior MRI of the lumbar spine from 03/31/2015. FINDINGS: Curvature and alignment of the lumbar spine is normal. The vertebral body heights are maintained. No geographic marrow lesion or acute compression fracture is detected. There is generalized degenerative disc disease with variable disc space narrowing and desiccation, greatest at L5-S1 level. The conus is unremarkable at the L1 level. T12-L1: No central canal or neural foraminal stenosis is identified. L1-L2: There is some ligamentous thickening. Central canal is widely patent. Neural foramina appear patent. L2-L3: There is some ligamentous thickening present. Central canal is widely patent. There does appear to be [id number] left neural foraminal narrowing due to broad-based disc/osteophyte complex. L3-L4: There is ligamentous thickening with broad-based disc/osteophyte complex indenting the ventral thecal sac. There is pptx-wj-wpetbaar narrowing of the central canal. There is also significant narrowing of bilateral lateral recesses. Moderate left and mild right neural foraminal stenosis is identified. L4-L5: Hypertrophic facet changes and ligamentous thickening with broad-based disc/osteophyte complex is noted. This does result in [id number]-[id number] central canal stenosis. There is significant bilateral lateral recess stenosis as well as moderate right and significant left neural foraminal stenosis. L5-S1: Central canal is widely patent. There is mild bilateral neural foraminal narrowing. Paraspinous tissues demonstrate small cyst involving the left kidney. IMPRESSION: Multilevel lumbar spondylosis with multilevel central canal, lateral recess and neural foraminal stenosis described level by level above. Overall appearance is very similar to the exam dating back to 2014. No acute compression fracture is identified. Dictated by: Dictated on workstation # [id number]
== END ==
LOC: RAD 13:23
PROVIDERS: ATTEND Orthopaedic Surgery
DX: M47.26 Other spondylosis with radiculopathy, lumbar region (principal); M48.07 Spinal stenosis, lumbosacral region
CPT/HCPCS: 72148

== ENCOUNTER → 2020-01-07 | Outpatient (CLI) | payer MEDICARE, MEDICAID ==
[~2020-01-07] MED LIST changes: -HYDR-3816 PO; -MELA3TAB PO; +MELA3TAB39 PO; -METO-370 PO; -TRAZ-222 PO; +TRZ50T PO
--- NOTE | 2020-01-07 10:45 | Diagnostic Imaging Report ---
INDICATION: Pain status post injury. COMPARISON: None. FINDINGS: A single AP view of the pelvis was performed. There is no radiographic evidence of acute fracture or dislocation. Pubic symphysis is within normal limits. SI joints are symmetric. Proximal femurs are intact, bilaterally. The femoro-acetabular joint spaces appear maintained on this single frontal view. Remainder of the bony pelvis is intact as well. No unexpected radiopaque foreign bodies are seen. Included small bowel loops are nondistended. Impression: 1. No radiographic evidence of acute fracture or dislocation of the bony pelvis. Dictated by: Dictated on workstation # [id number]
--- NOTE | 2020-01-07 10:51 | Diagnostic Imaging Report ---
INDICATION: Pain status post injury. COMPARISON: MR lumbar spine dated 05/01/2019. FINDINGS: Frontal and lateral views of the lumbar spine were obtained. Evaluation of static alignment shows slight grade 1 anterolisthesis at L4-L5 and slight grade 1 retrolisthesis at L5-S1. There is no evidence of jumped facets. Note is also made of slight levoscoliotic deformity epicentered at the L4-L5 level. The vertebral body heights are maintained. There is no new acute compression fracture. There are mild to moderate degenerative changes consisting primarily of multilevel facet arthropathy of the lower lumbar spine. There is, however, also significant intervertebral disc height loss at L5-S1. Note is made of calcified aortic atherosclerosis. The included small bowel loops are nondistended. IMPRESSION: 1. No radiographic evidence of acute fracture or dislocation of the lumbar spine. 2. Mild to moderate multilevel degenerative changes of the lower lumbar spine. Dictated by: Dictated on workstation # [id number]
== END ==
LOC: RAD 09:54
PROVIDERS: ATTEND Nurse Practitioner Family
DX: M47.816 Spondylosis without myelopathy or radiculopathy, lumbar region (principal); R10.2 Pelvic and perineal pain; Z87.828 Personal history of other (healed) physical injury and trauma
CPT/HCPCS: 72100; 72170

== ENCOUNTER 2020-03-16 20:43 | Emergency (ER) | payer MEDICARE, MEDICAID ==
[~2020-03-16] VITALS: Ht 162.5 cm; Wt 57.6 kg
[~2020-03-16 20:43] MED LIST changes: +AMLO-250 PO; +AMLO-251 PO; -AMLO10TA7 PO; -AMLO5TAB9 PO; +ASPI-1238 PO; -ASPI-983 PO; -OXYC-465 PO; +OXYC-556 PO; -PANT40TA3 PO; +PANT40TA52 PO
[2020-03-16 20:50] VITALS: BP 131/63
[2020-03-16] MEDS ORDERED: morphine INJ 10 MG/ML 1ML (SYR OR VIAL) IM STA (21:11)
[2020-03-16] MEDS ORDERED: KETOROLAC 30 MG/ML VIAL IM STA (21:11)
--- NOTE | 2020-03-16 21:23 | ED Upper Extremity ---
General Chief Complaint: Upper Extremity Stated Complaint: ARM INJURY Nursing Triage Note: PT TO FT[facility] WITH COMPLAINT OF RIGHT ARM PAIN AFTER FALL. STATES TRIPPED OVER HER DOG AND LANDED ON RIGHT ARM. DENIES HITTING HEAD OR ANY OTHER INJURY. Nursing Sepsis Screen: No Definite Risk Source: patient Exam Limitations: no limitations History of Present Illness Date Seen by Provider: Mar 16, 2020 Time Seen by Provider: 21:08 Initial Comments Here with report of right arm pain in the upper arm and at the area of the elbow after falling at home. Apparently she was sitting on the edge of her bed when she decided she was, get up. She did not see her dog on the floor and tripped over him and fell onto her right shoulder against the wall and then to the ground where she had her right elbow. She denies hitting her head or head injury. She denies neck or back pain. She is not on blood thinners. Denies injury to her forearm or wrist on that side. Denies chest pain or breathing problems or other injuries overall. Onset: just prior to arrival (approximately 45 minutes ago) Severity: moderate Pain/Injury Location: right arm, right elbow Method of Injury: fell Modifying Factors: Improves With Immobilization; Worse With Movement Allergies and Home Medications Allergies Coded Allergies: Sulfa (Sulfonamide Antibiotics) (Verified Allergy, Unknown, 01/13/18) adhesive (Verified Allergy, Unknown, 12/31/17) fentanyl adhesive pregabalin (Verified Allergy, Unknown, 12/31/17) meperidine (Verified Adverse Reaction, Intermediate, HALLUCINATIONS, 09/19/18) amoxicillin (Unverified Adverse Reaction, Unknown, 01/09/19) clavulanic acid (Unverified Adverse Reaction, Unknown, 01/09/19) pantoprazole (Verified Adverse Reaction, Unknown, SEVERE DIARRHEA, 01/04/19) Home Medications Albuterol Sulfate 1 Puff Puff, 2 PUFF IH Q4H PRN for SHORTNESS OF BREATH, (Rep orted) Amlodipine Besylate 5 Mg Tablet, 5 MG PO DAILY, (Reported) Aspirin 81 Mg Tablet.dr, 81 MG PO DAILY, (Reported) Atorvastatin Calcium 40 Mg Tablet, 40 MG PO HS, (Reported) Chlordiazepoxide HCl 10 Mg Capsule, 10 MG PO TID, (Reported) Esomeprazole Magnesium 40 Mg Capsule.dr, 40 MG PO DAILY, (Reported) Lisinopril 20 Mg Tablet, 20 MG PO DAILY, (Reported) Methocarbamol 500 Mg Tablet, 500 MG PO TID, (Reported) Metoprolol Succinate 50 Mg Tab.er.24h, 50 MG PO DAILY, (Reported) Upper [place] 3 Polyunsat Fatty Acids 1,000 Mg Cap, 1,000 MG PO DAILY, (Reported) Oxycodone HCl/Acetaminophen 1 Each Tablet, 1 TAB PO Q4H PRN for PAIN-MODERATE, (Reported) Vitamin E Acetate 400 Unit Capsule, 400 UNIT PO DAILY, (Reported) Patient Home Medication List Home Medication List Reviewed: Yes Review of Systems Constitutional: see HPI; No chills, No fever Respiratory: No cough, No short of breath Cardiovascular: No chest pain, No edema Musculoskeletal: joint pain, muscle pain Skin: No change in color, No lesions Psychiatric/Neurological: Denies Headache, Denies Weakness Right hand dominant Past Erjcseg-Sqglfu-Niiuug Hx Past Med/Social Hx: Reviewed Nursing Past Med/Soc Hx Patient Social History Alcohol Use: Denies Use Recreational Drug Use: No Smoking Status: Current Everyday Smoker Type Used: Cigarettes 2nd Hand Smoke Exposure: Yes Recent Foreign Travel: No Contact w/Someone Who Travel: No Recent Infectious Disease Expo: No Recent Hopitalizations: No Immunizations Up To Date Tetanus Booster (TDap): Less than 5yrs Date of Pneumonia Vaccine: Feb 27, 2017 Date of Influenza Vaccine: Feb 09, 2018 Seasonal Allergies Seasonal Allergies: Yes Past Medical History Surgeries: Yes (ADHESIOLYSIS X3, LEFT FOOT X2, C/S X2, R TKR, L knee scope) Abdominal, Appendectomy, Section, Coronary Stent, Hysterectomy, Oophorectomy, Orthopedic, Tonsillectomy Respiratory: Yes COPD, Emphysema Currently Using CPAP: No Currently Using BIPAP: No Cardiac: Yes (stents x3) Coronary Artery Disease, Heart Attack, Hypertension, Palpitations Neurological: No Headaches /Migraines 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 Disorders: No [employer] History: Hysterectomy Sexually Transmitted Disease: No HIV/AIDS: No Genitourinary: Yes Kidney Stones, UTI-Chronic Gastrointestinal: Yes Gastroesophageal Reflux Musculoskeletal: Yes ("KNEE AND BACK PROBLEMS" "BULGING DISCS" ) Degenerate Disk Disease, Osteoporosis, Arthritis, Chronic Back Pain Endocrine: No HEENT: No Loss of Vision: Bilateral Hearing Impairment: Denies Cancer: No Psychosocial: Yes (Pt states she had Bulemia years ago and lowest weight was 94 lbs ) Eating Disorder Integumentary: No Blood Disorders: Yes (HX OF ANEMIA) Adverse Reaction/Blood Tranf: No Family Medical History Reviewed Nursing Family Hx Abdominal aortic aneurysm Alzheimer's disease 19 MOTHER Cardiovascular disease 19 FATHER ( AT 46 FROM HEART ATTACK) G8 SISTER Hypercholesterolemia 19 FATHER Hypertension 19 FATHER 19 MOTHER Myocardial infarction 19 FATHER Thyroid disease 19 MOTHER G8 SISTER Heart Disease Physical Exam Vital Signs Vital Signs - First Documented 03/16/20 20:50 Pulse 85 Resp 20 B/P (MAP) 131/63 (85) Pulse Ox 96 O2 Delivery Room Air Capillary Refill : Less Than 3 Seconds Height, Weight, BMI Height: 5'4.00" Weight: 136lbs. 0.0oz. 61.826678ey; 21.00 BMI Method:Stated General Appearance: WD/WN, no apparent distress HEENT: PERRL/EOMI, other (no obvious head injury, contusion or abrasion.) Neck: non-tender, full range of motion, supple, normal inspection Cardiovascular: regular rate, rhythm, no murmur Respiratory: lungs clear, normal breath sounds Back: normal inspection, no CVA tenderness, no vertebral tenderness Shoulder: No deformity; limited ROM, pain, soft tissue tenderness (right proximal humerus for all findings) Elbow/Forearm: Right, limited ROM, pain, soft tissue tenderness (right elbow) Wrist: Yes no evidence of injury, Yes normal ROM Hand: no evidence of injury, normal ROM, Right 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: alert, oriented x 3 Skin: normal color, warm/dry Progress/Results/Core Measures Results/Orders My Orders Orders - SONAM MCCABE MD Ketorolac Injection (Toradol Injection) (03/16/20 21:11) Morphine Injection (Morphine Injection (03/16/20 21:11) Humerus, Right, 2 Views (03/16/20 21:23) Elbow, Right, 3 Views (03/16/20 21:23) Hydrocodone/Apap 10/325 Tablet (Lortab 1 (03/16/20 22:15) Vital Signs/I&O 03/16/20 20:50 Pulse 85 Resp 20 B/P (MAP) 131/63 (85) Pulse Ox 96 O2 Delivery Room Air Blood Pressure Mean: 85 Progress Progress Note : Progress Note Seen and evaluated. Morphine 5 mg IM and Toradol 30 mg IM ordered. X-ray right humerus and right elbow. I did discuss at length with the patient regarding evaluation including potential for CT head due to fall and age. She flatly denies hitting her head and denies headache, vision problems or any other concerns and has declined a CT of the head. Monitor patient. 2209: X-ray results noted. Does have proximal humerus fracture. Sling applied. Hydrocodone 10/325 one tab by mouth given. We will send a copy of the chart to Dr. Diez's office per patient request that she has establish care with him. I will also send a copy of the chart to Dr. Yip's office as she may need adjustment of her pain meds briefly during this acute fracture time. Discharged home with return precautions. Patient verbalize understanding of instructions and agreement with plan. Diagnostic Imaging Diagonstic Imaging: Xray Plain Films/CT/US/NM/MRI: other Comments NAME: MANJINDER HUMPHRIES [employer] REC#: [id number] PT STATUS: REG ER : 1950 PHYSICIAN: SONAM MCCABE MD ADMIT DATE: 03/16/20/ER Signed Date of Exam:03/16/20 HUMERUS, RIGHT, 2 VIEWS INDICATION: Arm pain, tripped over dog COMPARISON: Imaging of the right elbow from the same date. TECHNIQUE: 2 radiographs of the right humerus dated 03/16/2020 FINDINGS: Acute fracturing of the right humeral neck is identified. Fracture is mildly comminuted. Mild medial and anterior displacement. The humeral head appears well-positioned in relationship to the glenoid based upon these 2 radiographs. The acromioclavicular joint is unremarkable. No additional acute fracture. No suspicious radiopaque foreign body. IMPRESSION: Acute mildly comminuted and displaced right humeral neck fracture. Dictated by: Dictated on workstation # [id number] Dict: 03/16/202200 Trans: 03/16/202209 [facility] [id number] Interpreted by: ASIYA HANKINS MD Electronically signed by: ASIYA HANKINS MD 03/16/202209 Reviewed: Reviewed by Me Diagonstic Imaging: Xray Plain Films/CT/US/NM/MRI: elbow Comments [facility] [place], [place] NAME: MANJINDER HUMPHRIES [employer] REC#: [id number] PT STATUS: REG ER : 1950 PHYSICIAN: SONAM MCCABE MD ADMIT DATE: 03/16/20/ER Signed Date of Exam:03/16/20 ELBOW, RIGHT, 3 VIEWS INDICATION: Pain, fall COMPARISON: None available TECHNIQUE: 3 radiographs of the the right elbow dated 03/16/2020. FINDINGS: Examination slightly limited as the elbow is flexed throughout the examination. Within the limits of the exam, no acute fracture or dislocation. No destructive osseous process. No elbow joint effusion. No suspicious radiopaque foreign body. IMPRESSION: No acute osseous abnormality involving the right elbow. Dictated by: Dictated on workstation # [id number] Dict: 03/16/202158 Trans: 03/16/202202 [facility] [phone] Interpreted by: ASIYA HANKINS MD Electronically signed by: ASIYA HANKINS MD 03/16/202202 Reviewed: Reviewed by Me Departure Impression Primary Impression: Fracture of humerus, proximal, right, closed Qualified Codes: S42.291A - Other displaced fracture of upper end of right humerus, initial encounter for closed fracture Disposition: HOME, SELF-CARE Condition: Stable Departure-Patient Inst. Referrals: LIBERTY YIP MD (PCP/Family) Primary Care Physician ALABRO DIEZ MD Patient Instructions: Upper Arm Fracture Add. Discharge Instructions: All discharge instructions reviewed with patient and/or family. Voiced understanding. Keep sling in place at all times except when showering. Call Dr. Diez's office tomorrow for appointment. Continue home pain medications as previously prescribed. Use ice pack over area concern 20 minutes per hour for the next one to 2 days as needed for pain. Return for worse pain, weakness, numbness of the hand, increased swelling or other concerns as needed. Copy Copies To 1: ALBARO DIEZ MD Copies To 2: LIBERTY YIP MD, TIMOTHY D MD Mar 16, 2020 21:23
--- NOTE | 2020-03-16 22:03 | Diagnostic Imaging Report ---
INDICATION: Pain, fall COMPARISON: None available TECHNIQUE: 3 radiographs of the the right elbow dated 03/16/2020. FINDINGS: Examination slightly limited as the elbow is flexed throughout the examination. Within the limits of the exam, no acute fracture or dislocation. No destructive osseous process. No elbow joint effusion. No suspicious radiopaque foreign body. IMPRESSION: No acute osseous abnormality involving the right elbow. Dictated by: Dictated on workstation # [id number]
--- NOTE | 2020-03-16 22:08 | Diagnostic Imaging Report ---
INDICATION: Arm pain, tripped over dog COMPARISON: Imaging of the right elbow from the same date. TECHNIQUE: 2 radiographs of the right humerus dated 03/16/2020 FINDINGS: Acute fracturing of the right humeral neck is identified. Fracture is mildly comminuted. Mild medial and anterior displacement. The humeral head appears well-positioned in relationship to the glenoid based upon these 2 radiographs. The acromioclavicular joint is unremarkable. No additional acute fracture. No suspicious radiopaque foreign body. IMPRESSION: Acute mildly comminuted and displaced right humeral neck fracture. Dictated by: Dictated on workstation # [id number]
[2020-03-16] MEDS ORDERED: HYDROcodone/APAP 10 MG/325 MG (LORTAB) TAB PO ONE (22:15)
== END 2020-03-16 22:30 | disposition home or self-care (01) ==
LOC: EDUNIT# 20:43 → ER 20:44
DX: S42.291A Other displaced fracture of upper end of right humerus, initial encounter for closed fracture (principal); J44.9 Chronic obstructive pulmonary disease, unspecified; I25.10 Atherosclerotic heart disease of native coronary artery without angina pectoris; K21.9 Gastro-esophageal reflux disease without esophagitis; I10 Essential (primary) hypertension; M54.9 Dorsalgia, unspecified; G89.29 Other chronic pain; I25.2 Old myocardial infarction; F17.210 Nicotine dependence, cigarettes, uncomplicated; Z88.2 Allergy status to sulfonamides; Z88.1 Allergy status to other antibiotic agents; Z88.5 Allergy status to narcotic agent; Z88.8 Allergy status to other drugs, medicaments and biological substances; Z82.49 Family history of ischemic heart disease and other diseases of the circulatory system; Z79.82 Long term (current) use of aspirin; Z79.891 Long term (current) use of opiate analgesic; W01.0XXA Fall on same level from slipping, tripping and stumbling without subsequent striking against object, initial encounter
CPT/HCPCS: 73060; 73080

== ENCOUNTER 2020-10-05 16:55 | Emergency (ER) | payer MEDICARE, MEDICAID ==
[~2020-10-05] VITALS: Ht 162.5 cm; Wt 56.3 kg
[~2020-10-05 16:55] MED LIST changes: +DULO60CA59 PO; +HYDR-3820 PO; +HYDR-700 PO; -LISI-552 PO; +LISI20TA26 PO; +LISI40TA9 PO; +METH-731 PO; -METH500T7 PO; +NAPR-1088 PO; -NAPR250T6 PO; -OXYC-471 PO; +OXYC1TAB11 PO
--- NOTE | 2020-10-05 17:09 | ED General ---
General Stated Complaint: BACK PAIN Source of Information: Patient Exam Limitations: No Limitations History of Present Illness Date Seen by Provider: October 05, 2020 Time Seen by Provider: 17:06 Initial Comments To ER with reports of low back pain after a fall on Monday 9 days ago and then again last night. Since the fall 9 days ago she has been unable to move around or get out of bed at home. This is secondary to pain. She has some chronic weakness in both of her legs as well as numbness in both of her legs. She also has been having some hallucinations. She was recently admitted for profound hyponatremia sodium level of 113. Timing/Duration: 1 Week Severity: Moderate Associated Systoms: No Fever/Chills Allergies and Home Medications Allergies Coded Allergies: Sulfa (Sulfonamide Antibiotics) (Verified Allergy, Unknown, 09/19/20) adhesive (Verified Allergy, Unknown, 09/19/20) fentanyl adhesive pregabalin (Verified Allergy, Unknown, 09/19/20) meperidine (Verified Adverse Reaction, Intermediate, HALLUCINATIONS, 09/19/20) amoxicillin (Verified Adverse Reaction, Unknown, 09/19/20) clavulanic acid (Verified Adverse Reaction, Unknown, 09/19/20) pantoprazole (Verified Adverse Reaction, Unknown, SEVERE DIARRHEA, 09/19/20) Home Medications Amlodipine Besylate 5 Mg Tablet, 5 MG PO DAILY, (Reported) Aspirin 81 Mg Tablet.dr, 81 MG PO DAILY, (Reported) Dicyclomine HCl 20 Mg Tablet, 20 MG PO QID PRN for IBS, (Reported) Duloxetine HCl 60 Mg Capsule.dr, 60 MG PO DAILY, (Reported) Hydrocodone/Acetaminophen 1 Each Tablet, 1 EA PO Q6H PRN for PAIN-MODERATE (5- 7), (Reported) Hydroxyzine HCl 25 Mg Tablet, 12.5-25 MG PO Q6H PRN for ANXIETY, (Reported) Lansoprazole 30 Mg Capsule.dr, 30 MG PO DAILY, (Reported) Metoprolol Succinate 50 Mg Tab.er.24h, 50 MG PO DAILY, (Reported) Nitrofurantoin Macrocrystal 100 Mg Capsule, 100 MG PO Q48H, (Reported) Patient Home Medication List Home Medication List Reviewed: Yes Review of Systems Review of Systems Constitutional: see HPI EENTM: see HPI Respiratory: no symptoms reported Cardiovascular: no symptoms reported Genitourinary: no symptoms reported Musculoskeletal: see HPI, back pain Skin: no symptoms reported Psychiatric/Neurological: No Symptoms Reported Hematologic/Lymphatic: No Symptoms Reported Past Knutmym-Ywvdvo-Rrfaln Hx Patient Social History Type Used: Cigarettes 2nd Hand Smoke Exposure: No Recent Hopitalizations: No Immunizations Up To Date Tetanus Booster (TDap): Less than 5yrs Date of Pneumonia Vaccine: Feb 27, 2017 Date of Influenza Vaccine: Feb 13, 2020 Seasonal Allergies Seasonal Allergies: Yes Past Medical History Surgeries: Yes (ADHESIOLYSIS X3, LEFT FOOT X2, C/S X2, R TKR, L knee scope) Abdominal, Appendectomy, Section, Coronary Stent, Hysterectomy, Oophorectomy, Orthopedic, Tonsillectomy Respiratory: Yes COPD, Emphysema Currently Using CPAP: No Currently Using BIPAP: No Cardiac: Yes (stents x3) Coronary Artery Disease, Heart Attack, Hypertension, Palpitations Neurological: No Headaches /Migraines 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 Disorders: 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 Sexually Transmitted Disease: No HIV/AIDS: No Genitourinary: Yes Kidney Stones, UTI-Chronic Gastrointestinal: Yes Gastroesophageal Reflux Musculoskeletal: Yes ("KNEE AND BACK PROBLEMS" "BULGING DISCS" ) Degenerate Disk Disease, Osteoporosis, Arthritis, Chronic Back Pain Endocrine: No HEENT: No Loss of Vision: Bilateral Hearing Impairment: Denies Cancer: No Psychosocial: Yes (Pt states she had Bulemia years ago and lowest weight was 94 lbs ) Eating Disorder Integumentary: No Blood Disorders: Yes (HX OF ANEMIA) Adverse Reaction/Blood Tranf: No Family Medical History Abdominal aortic aneurysm Alzheimer's disease 19 MOTHER Cardiovascular disease 19 FATHER ( AT 46 FROM HEART ATTACK) G8 SISTER Hypercholesterolemia 19 FATHER Hypertension 19 FATHER 19 MOTHER Myocardial infarction 19 FATHER Thyroid disease 19 MOTHER G8 SISTER Heart Disease Physical Exam Vital Signs Vital Signs - First Documented 10/05/20 16:57 Temp 36.1 Pulse 112 Resp 18 B/P (MAP) 153/104 (120) O2 Delivery Room Air Capillary Refill : Height, Weight, BMI Height: 5'4.00" Weight: 136lbs. 0.0oz. 61.557365bs; 20.26 BMI Method:Stated General Appearance: No Apparent Distress, WD/WN, Thin (Very thin frail appearing sunken eyes) Eyes: Bilateral Eye Normal Inspection, Bilateral Eye PERRL, Bilateral Eye EOMI Neck: Full Range of Motion, Normal Inspection Respiratory: No Accessory Muscle Use, No Respiratory Distress Gastrointestinal: Normal Bowel Sounds, Non Tender, Soft Extremity: Normal Capillary Refill, Normal Inspection 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: Alert, Oriented x3 Skin: Normal Color, Warm/Dry Comments Lower extremity strength is 3 out of 5 bilaterally. Progress/Results/Core Measures Suspected Sepsis SIRS Temperature: Pulse: Respiratory Rate: Laboratory Tests 10/05/20 17:28: White Blood Count 13.1H Blood Pressure / Mean: Laboratory Tests 10/05/20 17:28: Creatinine 1.04, Platelet Count 665H, Total Bilirubin 0.5 Results/Orders Lab Results Laboratory Tests Test 10/05/20 17:28 10/05/20 18:34 Range/Units White Blood Count 13.1 H 4.3-11.0 10^3/uL Red Blood Count 4.87 3.80-5.11 10^6/uL Hemoglobin 14.9 11.5-16.0 g/dL Hematocrit 44 35-52 % Mean Corpuscular Volume 90 80-99 fL Mean Corpuscular Hemoglobin 31 25-34 pg Mean Corpuscular Hemoglobin Concent 34 32-36 g/dL Red Cell Distribution Width 13.8 10.0-14.5 % Platelet Count 665 H 130-400 10^3/uL Mean Platelet Volume 8.9 L 9.0-12.2 fL Immature Granulocyte % (Auto) 1 % Neutrophils (%) (Auto) 81 H 42-75 % Lymphocytes (%) (Auto) 9 L 12-44 % Monocytes (%) (Auto) 8 0-12 % Eosinophils (%) (Auto) 0 0-10 % Basophils (%) (Auto) 0 0-10 % Neutrophils # (Auto) 10.6 H 1.8-7.8 10^3/uL Lymphocytes # (Auto) 1.2 1.0-4.0 10^3/uL Monocytes # (Auto) 1.1 H 0.0-1.0 10^3/uL Eosinophils # (Auto) 0.0 0.0-0.3 10^3/uL Basophils # (Auto) 0.0 0.0-0.1 10^3/uL Immature Granulocyte # (Auto) 0.1 0.0-0.1 10^3/uL Sodium Level 123 *L 135-145 MMOL/L Potassium Level 4.2 3.6-5.0 MMOL/L Chloride Level 89 L 98-107 MMOL/L Carbon Dioxide Level 22 21-32 MMOL/L Anion Gap 12 5-14 MMOL/L Blood Urea Nitrogen 21 H 7-18 MG/DL Creatinine 1.04 0.60-1.30 MG/DL Estimat Glomerular Filtration Rate 52 BUN/Creatinine Ratio 20 Glucose Level 115 H 70-105 MG/DL Calcium Level 10.3 H 8.5-10.1 MG/DL Corrected Calcium 10.2 H 8.5-10.1 MG/DL Total Bilirubin 0.5 0.1-1.0 MG/DL Aspartate Amino Transf (AST/SGOT) 23 5-34 U/L Alanine Aminotransferase (ALT/SGPT) 16 0-55 U/L Alkaline Phosphatase 168 H 40-136 U/L Total Protein 8.0 6.4-8.2 GM/DL Albumin 4.1 3.2-4.5 GM/DL Urine Color YELLOW Urine Clarity CLEAR Urine pH 5.5 5-9 Urine Specific [place] 1.020 1.016-1.022 Urine Protein 2+ H NEGATIVE Urine Glucose (UA) NEGATIVE NEGATIVE Urine Ketones TRACE H NEGATIVE Urine Nitrite NEGATIVE NEGATIVE Urine Bilirubin 1+ H NEGATIVE Urine Urobilinogen 0.2 < = 1.0 MG/DL Urine Leukocyte Esterase 2+ H NEGATIVE Urine RBC (Auto) 1+ H NEGATIVE Urine RBC NONE /HPF Urine WBC 5-10 H /HPF Urine Squamous Epithelial Cells 5-10 /HPF Urine Crystals NONE /LPF Urine Bacteria MODERATE H /HPF Urine Casts PRESENT /LPF Urine Hyaline Casts 5-10 H /LPF Urine Mucus NEGATIVE /LPF Urine Culture Indicated YES My Orders Orders - CYDNEY ANDERSON APRN Cbc With Automated Diff (10/05/20 17:03) Comprehensive Metabolic Panel (10/05/20 17:03) Ua Culture If Indicated (10/05/20 17:03) Ed Iv/Invasive Line Start (10/05/20 17:03) Ct Lumbar Spine Wo (10/05/20 17:03) Pelvis (10/05/20 17:03) Ns Iv 1000 Ml (Sodium Chloride 0.9%) (10/05/20 17:15) Ondansetron Injection (Zofran Injectio (10/05/20 17:15) Hydrocodone/Apap 5/325 Tablet (Lortab 5 (10/05/20 18:15) Urine Culture (10/05/20 18:34) Lorazepam Injection (Ativan Injection) (10/05/20 20:00) Morphine Injection (Morphine Injection (10/05/20 21:12) Ct Head Wo (10/05/20 21:44) Morphine Injection (Morphine Injection (10/05/20 21:52) Medications Given in ED Current Medications Medications Dose Ordered Sig/Lisa Route Start Time Stop Time Status Last Admin Dose Admin Acetaminophen/ Hydrocodone Bitart 1 ea ONCE ONCE PO 10/05/20 18:15 10/05/20 18:16 DC 10/05/20 18:29 1 EA Lorazepam 1 mg ONCE ONCE IVP 10/05/20 20:00 10/05/20 20:01 DC 10/05/20 20:06 1 MG Ondansetron HCl 8 mg ONCE ONCE IVP 10/05/20 17:15 10/05/20 17:16 DC 10/05/20 19:13 8 MG Vital Signs/I&O 10/05/20 16:57 Temp 36.1 Pulse 112 Resp 18 B/P (MAP) 153/104 (120) O2 Delivery Room Air Capillary Refill : Diagnostic Imaging Diagonstic Imaging: Xray Comments NAME: MANJINDER HUMPHRIES MED REC#: [id number] PT STATUS: REG ER : 1950 PHYSICIAN: CYDNEY ANDERSON APRN ADMIT DATE: 10/05/20/ER Signed Date of Exam:10/05/20 PELVIS CLINICAL HISTORY: Chronic low back pain. Hip pain. Fall. COMPARISON: 01/07/2020 TECHNIQUE: Single AP view of the pelvis was obtained. FINDINGS: There is no acute fracture or dislocation of the pelvis and bilateral hips. Alignment is anatomic. No focal osseous lesions are identified. The surrounding soft tissues are unremarkable. IMPRESSION: 1. No acute displaced fractures are seen in the pelvis and bilateral hips. Dictated by: Dictated on workstation # [id number] Dict: 10/05/201855 Trans: 10/05/201902 [facility] [phone] Interpreted by: JAUN ALFARO DO Electronically signed by: JAUN ALFARO DO 10/05/201902 NAME: MANJINDER HUMPHRIES MED REC#: [id number] PT STATUS: REG ER : 1950 PHYSICIAN: CYDNEY ANDERSON APRN ADMIT DATE: 10/05/20/ER Signed Date of Exam:10/05/20 CT LUMBAR SPINE WO PROCEDURE: CT lumbar spine without contrast. TECHNIQUE: Multiple contiguous axial images were obtained through the lumbar spine without the use of intravenous contrast. Sagittal and coronal reformations were then performed. Auto Exposure Controls were utilized during the CT exam to meet ALARA standards for radiation dose reduction. INDICATION: Chronic low back pain. Fall this morning. COMPARISONS: 01/07/2020. 05/01/2019. FINDINGS: Age-indeterminate compression fracture is seen involving the T12 vertebral body with approximately 6% height loss anteriorly. There is bony retropulsion of 4 mm. Associated mild to moderate spinal canal stenosis is present. No other findings are seen to suggest acute fracture in the lumbar spine. Chronic appearing fracture is seen involving the right transverse process of L1. No high density material is seen within spinal canal. Degenerative changes are present in the lumbar spine with disc bulges and facet hypertrophy. The soft tissues of the lumbar spine are unremarkable. IMPRESSION: 1. Age-indeterminate fracture involving the T12 vertebral body with 60% height loss anteriorly and bony retropulsion of 4 mm. These findings are new since the prior exams and is concerning for acute compression fracture. Dictated by: Dictated on workstation # [id number] Dict: 10/05/201845 Trans: 10/05/201855 [facility] [phone] Interpreted by: JAUN ALFARO DO Electronically signed by: JAUN ALFARO DO 10/05/201855 Departure Communication (Admissions) 1921-Discussed the low sodium with the patient and her . He states that she drinks water all day and even what he would consider excessive. CT does show a compression fracture with 60% height loss at T12 With 4 mm of retropulsion and mild to moderate canal stenosis. This was presumed to be acute given her pain and recent fall. I spoke with Dr. Gilbert from neurosurgery at [facility], believes she may be a good candidate for kyphoplasty though he has not reviewed the images. I did send images over on the cloud. I will transfer the patient to [facility] for spine surgical consultation and correction of hyponatremia. 2051-I discussed with the patient and her the need to go to [facility] to have this taken care of. She was reluctant at first but ultimately agreed to go to [facility] by ambulance. Her is certainly encouraging of this and is very happy that she has agreed to go as well. 2199-patient reported that she was anxious prior to going to [place]. We gave a milligram of lorazepam. It did seem to make her actually a bit restless and disoriented. Given this increase in her restlessness and confusion I will go ahead and get a CT of her head to rule out bleed though she denies any head injury or headache at any time. This delirium seems to be more medication related. She is restless and holding her back. 4 mg of morphine ordered. EMS is here to take her to [place]. Impression Primary Impression: Hyponatremia Additional Impression: T12 compression fracture Disposition: XFER SHT-TRM HOSP Condition: Stable Transfer Transfer Reason: Exceeds level of care Time Spoke to Accepting Phy: 19:25 Departure-Patient Inst. Referrals: LIBERTY YIP MD (PCP/Family) Primary Care Physician CYDNEY ANDERSON APRN October 05, 2020 17:09
[2020-10-05] MEDS ORDERED: NS IV 1000 ML 1,000 ML IV SCH (17:15)
[2020-10-05] MEDS ORDERED: ONDANSETRON 4 MG/2 ML (SDV) Z0FRAN IVP ONE (17:15)
[2020-10-05 17:37] LABS: BASOPHILS % (AUTO) 0 % (0-10); EOSINOPHILS % (AUTO) 0 % (0-10); HEMATOCRIT 44 % (35-52); HEMOGLOBIN 14.9 g/dL (11.5-16.0); LYMPHOCYTES # (AUTO) 1.2 10^3/uL (1.0-4.0); LYMPHOCYTES % (AUTO) 9 % (12-44); MEAN CORPUSCULAR HEMOGLOBIN 31 pg (25-34); MEAN CORPUSCULAR HGB CONC 34 g/dL (32-36); MEAN CORPUSCULAR VOLUME 90 fL (80-99); MEAN PLATELET VOLUME 8.9 fL (9.0-12.2); MONOCYTES # (AUTO) 1.1 10^3/uL (0.0-1.0); MONOCYTES % (AUTO) 8 % (0-12); NEUTROPHILS # (AUTO) 10.6 10^3/uL (1.8-7.8); NEUTROPHILS % (AUTO) 81 % (42-75); PLATELET COUNT 665 10^3/uL (130-400); WHITE BLOOD COUNT 13.1 10^3/uL (4.3-11.0)
[2020-10-05 17:54] LABS: ALBUMIN 4.1 GM/DL (3.2-4.5)
[2020-10-05 17:55] LABS: POTASSIUM 4.2 MMOL/L (3.6-5.0)
[2020-10-05 17:56] LABS: CALCIUM 10.3 MG/DL (8.5-10.1)
[2020-10-05 17:59] LABS: BILIRUBIN,TOTAL 0.5 MG/DL (0.1-1.0)
[2020-10-05 18:01] LABS: CREATININE SERUM 1.04 MG/DL (0.60-1.30)
[2020-10-05] MEDS ORDERED: HYDROcodone/APAP 5 MG/325 MG (LORTAB) TAB PO ONE (18:15)
[2020-10-05 18:40] LABS: CLARITY,URINE CLEAR; COLOR,URINE YELLOW; GLUCOSE, URINE (UA) NEGATIVE (NEGATIVE); KETONES,URINE TRACE (NEGATIVE); LEUKOCYTE ESTERASE ,URINE 2+ (NEGATIVE); NITRITE,URINE NEGATIVE (NEGATIVE); PH,URINE 5.5 (5-9); PROTEIN,URINE 2+ (NEGATIVE)
[2020-10-05 18:49] LABS: BACTERIA,URINE MODERATE /HPF; BILIRUBIN,URINE 1+ (NEGATIVE)
--- NOTE | 2020-10-05 18:55 | Diagnostic Imaging Report ---
PROCEDURE: CT lumbar spine without contrast. TECHNIQUE: Multiple contiguous axial images were obtained through the lumbar spine without the use of intravenous contrast. Sagittal and coronal reformations were then performed. Auto Exposure Controls were utilized during the CT exam to meet ALARA standards for radiation dose reduction. INDICATION: Chronic low back pain. Fall this morning. COMPARISONS: 01/07/2020. 05/01/2019. FINDINGS: Age-indeterminate compression fracture is seen involving the T12 vertebral body with approximately 6% height loss anteriorly. There is bony retropulsion of 4 mm. Associated mild to moderate spinal canal stenosis is present. No other findings are seen to suggest acute fracture in the lumbar spine. Chronic appearing fracture is seen involving the right transverse process of L1. No high density material is seen within spinal canal. Degenerative changes are present in the lumbar spine with disc bulges and facet hypertrophy. The soft tissues of the lumbar spine are unremarkable. IMPRESSION: 1. Age-indeterminate fracture involving the T12 vertebral body with 60% height loss anteriorly and bony retropulsion of 4 mm. These findings are new since the prior exams and is concerning for acute compression fracture. Dictated by: Dictated on workstation # [id number]
--- NOTE | 2020-10-05 19:02 | Diagnostic Imaging Report ---
CLINICAL HISTORY: Chronic low back pain. Hip pain. Fall. COMPARISON: 01/07/2020 TECHNIQUE: Single AP view of the pelvis was obtained. FINDINGS: There is no acute fracture or dislocation of the pelvis and bilateral hips. Alignment is anatomic. No focal osseous lesions are identified. The surrounding soft tissues are unremarkable. IMPRESSION: 1. No acute displaced fractures are seen in the pelvis and bilateral hips. Dictated by: Dictated on workstation # [id number]
[2020-10-05] MEDS ORDERED: LORazepam INJ 2 MG/ML (ATIVAN) VIAL IVP ONE (20:00)
[2020-10-05] MEDS ORDERED: morphine INJ 10 MG/ML 1ML (SYR OR VIAL) IVP STA ×2 (21:12→21:52)
[2020-10-05 22:15] VITALS: BP 154/94
--- NOTE | 2020-10-06 07:16 | Diagnostic Imaging Report ---
PROCEDURE: CT head without contrast. TECHNIQUE: Multiple contiguous axial images were obtained through the brain without the use of intravenous contrast. Auto Exposure Controls were utilized during the CT exam to meet ALARA standards for radiation dose reduction. INDICATION: Altered mental status, having hallucinations. CORRELATION: 09/19/2020 FINDINGS: There are diffuse atrophic changes with prominence of the ventricles and sulci. There are scattered areas of decreased attenuation, nonspecific but likely changes of chronic small vessel ischemic disease. There is otherwise normal sahu-white differentiation. No abnormal areas of attenuation to suggest edema from ischemia. Intracranial vascular opacification and without hyperdense vascular sign. There is no midline shift or mass effect. No evidence for acute intracranial hemorrhage or abnormal extra-axial fluid collection. Bony calvarium is intact. Paranasal sinuses are clear. Mastoid air cells also appear clear. IMPRESSION: 1. No CT evidence for acute intracranial abnormality. 2. Age-related atrophic changes with changes of small vessel ischemic disease. Initial report was provided by [facility]. Dictated by: Dictated on workstation # [id number]
== END 2020-10-05 22:15 | disposition short-term general hospital (02) ==
LOC: EDUNIT# 16:55 → ER 16:57
DX: S22.080A Wedge compression fracture of T11-T12 vertebra, initial encounter for closed fracture (principal); E87.1 Hypo-osmolality and hyponatremia; R41.0 Disorientation, unspecified; I11.0 Hypertensive heart disease with heart failure; I50.9 Heart failure, unspecified; I25.10 Atherosclerotic heart disease of native coronary artery without angina pectoris; J43.9 Emphysema, unspecified; G43.909 Migraine, unspecified, not intractable, without status migrainosus; K21.9 Gastro-esophageal reflux disease without esophagitis; G89.29 Other chronic pain; Z95.5 Presence of coronary angioplasty implant and graft; Z79.82 Long term (current) use of aspirin; Z79.891 Long term (current) use of opiate analgesic; Z79.899 Other long term (current) drug therapy; Z88.5 Allergy status to narcotic agent; W19.XXXA Unspecified fall, initial encounter
CPT/HCPCS: 36415; 70450; 72131; 72170; 80053; 81000; 85025; 87088

== ENCOUNTER → 2021-07-05 | Outpatient (CLI) | payer MEDICARE, MEDICAID ==
[~2021-07-05] MED LIST changes: +DICY20TA PO; -DICY20TA10 PO; -LEVO250T46 PO; +LVF250T PO; +TIZA-186 PO; -TIZA4TAB4 PO
[2021-07-05 15:41] LABS: BASOPHILS # (AUTO) 0.1 10^3/uL (0.0-0.1); BASOPHILS % (AUTO) 1 % (0-10); EOSINOPHILS # (AUTO) 0.2 10^3/uL (0.0-0.3); EOSINOPHILS % (AUTO) 2 % (0-10); HEMATOCRIT 41 % (35-52); HEMOGLOBIN 12.8 g/dL (11.5-16.0); LYMPHOCYTES # (AUTO) 2.4 X 10^3 (1.0-4.0); LYMPHOCYTES % (AUTO) 21 % (12-44); MEAN CORPUSCULAR HEMOGLOBIN 30 pg (25-34); MEAN CORPUSCULAR HGB CONC 31 g/dL (32-36); MEAN CORPUSCULAR VOLUME 97 fL (80-99); MEAN PLATELET VOLUME 9.6 fL (9.0-12.2); MONOCYTES # (AUTO) 0.8 X 10^3 (0.0-1.0); MONOCYTES % (AUTO) 7 % (0-12); NEUTROPHILS # (AUTO) 7.8 X 10^3 (1.8-7.8); NEUTROPHILS % (AUTO) 69 % (42-75); PLATELET COUNT 277 10^3/uL (130-400); WHITE BLOOD COUNT 11.3 10^3/uL (4.3-11.0)
--- NOTE | 2021-07-05 15:47 | Diagnostic Imaging Report ---
INDICATION: Confusion with right-sided blurry vision. EXAMINATION: CT brain without contrast, 07/05/2021. COMPARISON: 10/05/2020. FINDINGS: There is diffuse chronic ischemic disease in a periventricular and deep white matter distribution. No superimposed acute hemorrhage or infarct is seen. There is no mass, mass effect or midline shift with no hydrocephalus. There is atherosclerotic disease and dolichoectasia of the basilar artery similar to previous imaging. There is no acute osseous abnormality. Partial opacification of the ethmoid air cells noted with remaining sinuses clear. Mastoid air cells unremarkable. IMPRESSION: Chronic findings with no acute intracranial process. Dictated by: Dictated on workstation # [id number]
[2021-07-05 15:51] LABS: ALBUMIN 4.1 GM/DL (3.2-4.5)
[2021-07-05 15:52] LABS: POTASSIUM 3.5 MMOL/L (3.6-5.0)
[2021-07-05 15:53] LABS: CALCIUM 9.4 MG/DL (8.5-10.1)
[2021-07-05 15:54] LABS: TOTAL PROTEIN 7.8 GM/DL (6.4-8.2)
[2021-07-05 15:56] LABS: BILIRUBIN,TOTAL 0.7 MG/DL (0.1-1.0)
[2021-07-05 15:58] LABS: CREATININE SERUM 0.82 MG/DL (0.60-1.30)
== END ==
LOC: CARD 15:00
PROVIDERS: ATTEND Nurse Practitioner Family
DX: I67.82 Cerebral ischemia (principal); I10 Essential (primary) hypertension; R41.0 Disorientation, unspecified; H53.8 Other visual disturbances; I48.91 Unspecified atrial fibrillation
CPT/HCPCS: 36415; 70450; 80053; 85025

== ENCOUNTER → 2021-07-06 | Outpatient (CLI) | payer MEDICARE, MEDICAID | LOC: CARD 13:00 | PROVIDERS: ATTEND Nurse Practitioner Family | DX: I48.91 Unspecified atrial fibrillation (principal); I10 Essential (primary) hypertension | CPT/HCPCS: 93005 ==

== ENCOUNTER → 2021-07-30 | Outpatient (CLI) | payer MEDICARE, MEDICAID ==
--- NOTE | 2021-07-30 15:19 | Diagnostic Imaging Report ---
PROCEDURE: MR imaging of the brain without contrast. TECHNIQUE: Multiplanar, multisequence MR imaging of the brain was performed without contrast. INDICATION: Confusion and visual disturbance. FINDINGS: Diffusion weighted images demonstrate a moderate-sized area of diffusion restriction in the left middle cerebral artery territory, consistent with acute/subacute ischemia. There is an area within the region of diffusion restriction that appears more prominent along the anterior margin of the left frontal lobe and underlying mass cannot be entirely excluded. The patient does have extensive periventricular and subcortical white matter changes, consistent with chronic microvascular ischemia. The normal expected flow-voids within the carotid siphons are seen. The ventricles and sulci are somewhat prominent, consistent with cerebral volume loss. No acute intra-axial or extra-axial hemorrhage is detected. The corpus callosum is unremarkable. The sella and parasellar structures are unremarkable. IMPRESSION: 1. There is a moderate-sized area of diffusion restriction in the left middle cerebral artery territory, consistent with acute/subacute ischemia. An underlying mass in the left frontal lobe cannot be entirely excluded and further evaluation with post contrast imaging would be useful. 2. Extensive white matter changes, consistent with chronic microvascular ischemia. 3. No acute intracranial hemorrhage is detected. 4. These results were discussed with Dr. Ronit Humphrey prior to this dictation. Dictated by: Dictated on workstation # [id number]
== END ==
LOC: RAD 14:00
PROVIDERS: ATTEND Nurse Practitioner Family
DX: R90.82 White matter disease, unspecified (principal); H54.7 Unspecified visual loss; R41.0 Disorientation, unspecified; I48.91 Unspecified atrial fibrillation
CPT/HCPCS: 70551

== ENCOUNTER → 2021-08-17 | Outpatient (CLI) | payer MEDICARE, MEDICAID ==
[~2021-08-17] MED LIST changes: +GADOTERATE 0.5 MMOL/ML (CLARISCAN) 15 ML VIAL IV ONE
--- NOTE | 2021-08-17 18:17 | Diagnostic Imaging Report ---
PROCEDURE: MR imaging of the brain with and without contrast. TECHNIQUE: Multiplanar, multisequence MR imaging of the brain was performed with and without contrast. INDICATION: Follow-up. Confusion. History of stroke and atrial fibrillation. COMPARISON: Comparison is made with a previous examination from 07/30/[address] head from July 05, 2021. FINDINGS: As on the prior examination, there is high diffusion signal intensity demonstrated within the left MCA distribution with involvement of the left frontal lobe, the left frontal operculum, the insula, and the superior left temporal gyrus. These regions continues to demonstrate high diffusion signal intensity but demonstrate relatively normalized ADC values. The precontrast T1 images also suggest that there may be some minimal laminar necrosis within the insula. There is also note made of some lacune formation within the insula compatible with some volume loss. The overall features remain most suggestive of a region of prior MCA territory infarction, but it is somewhat atypical for this degree of high diffusion signal intensity to persist for this time frame, though there are reports of diffusion signal remaining for greater than a month. These features appear to possibly have been present on the prior CT from June 2021. As the diffusion signal is atypical for infarct, continued follow-up to document expected evolution and subsequent volume loss is recommended. Today's postcontrast images do not demonstrate evidence of abnormal enhancement. There is no clearly defined mass. No pathologic intracranial enhancement is demonstrated There is no hydrocephalus. There is no extra-axial collection. The basilar cisterns are patent. The pituitary gland and pineal region are normal. There is no signal abnormality within the mastoids. The paranasal sinuses appear clear. The major expected vascular flow voids are maintained. IMPRESSION: 1. Persistent abnormal diffusion hyperintensity demonstrated throughout the left MCA territory as described. The ADC values are relatively normal. There does appear to be some volume loss and lacune formation within the subinsular aspect of the left cerebral hemisphere. There is also suggestion of some early laminar necrosis of the insular cortex. These features suggest that this is related to infarction. 2. There is no mass-like enhancement or abnormal enhancement associated with this process. 3. While the favored consideration remains that of now imaging of subacute ischemic changes, given the atypical persistence of the diffusion hyperintensity ongoing, further follow-up to document expected evolution is recommended. Consider an additional reassessment in one month. If findings persist at that time, other etiologies such as an infiltrative process or an atypical leukoencephalopathy would need to be considered. Dictated by: Dictated on workstation # [id number]
== END ==
LOC: RAD 14:33
PROVIDERS: ATTEND Nurse Practitioner Family
DX: I67.82 Cerebral ischemia (principal); G93.89 Other specified disorders of brain; I48.91 Unspecified atrial fibrillation; I63.511 Cerebral infarction due to unspecified occlusion or stenosis of right middle cerebral artery; R41.0 Disorientation, unspecified; Z86.73 Personal history of transient ischemic attack (TIA), and cerebral infarction without residual deficits
CPT/HCPCS: 70553